=== PATIENT | female | born 1935 | race Caucasian/White ===

== ENCOUNTER → 2020-02-12 09:50 | Outpatient (REF) | payer MEDICARE, SELFPAY | LOC: HO.SL 09:50 | PROVIDERS: PCP Internal Medicine; Visit Provider Internal Medicine | DX: G47.33 Obstructive sleep apnea (adult) (pediatric) (principal) | CPT/HCPCS: 95806 ==

== ENCOUNTER 2020-03-10 11:03 | Outpatient (REF) | payer MEDICARE, SELFPAY ==
--- NOTE | 2020-03-10 11:05 | XR_ITS ---
EXAMINATION: XR KNEES, STANDING AP XR KNEE, RIGHT CLINICAL INFORMATION: M25.561 - Pain in right knee COMPARISON: Radiographs right knee 12/16/2019, standing AP knees and left knee 08/21/2019. TECHNIQUE: Screening AP view of both knees is performed along with a lateral view of the right knee with patient weightbearing. FINDINGS: The right knee has total arthroplasty. The hardware is intact. There is no fracture or dislocation or destructive process. There is mild thickening suprapatellar bursa consistent with a trace effusion. There is no osteolysis. No periostitis. The left knee shows narrowing lateral compartment with mild subchondral sclerosis and marginal osteophytes lateral femoral condyle and lateral tibial plateau. There is no erosive change or visible chondrocalcinosis. 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 XR/XR knee standing BI IMPRESSION: 1. Right: Total knee arthroplasty. Trace effusion. 2. Left: Narrowing lateral compartment. 3. 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
--- NOTE | 2020-03-10 11:05 | XR_ITS ---
EXAMINATION: XR KNEES, STANDING AP XR KNEE, RIGHT CLINICAL INFORMATION: M25.561 - Pain in right knee COMPARISON: Radiographs right knee 12/16/2019, standing AP knees and left knee 08/21/2019. TECHNIQUE: Screening AP view of both knees is performed along with a lateral view of the right knee with patient weightbearing. FINDINGS: The right knee has total arthroplasty. The hardware is intact. There is no fracture or dislocation or destructive process. There is mild thickening suprapatellar bursa consistent with a trace effusion. There is no osteolysis. No periostitis. The left knee shows narrowing lateral compartment with mild subchondral sclerosis and marginal osteophytes lateral femoral condyle and lateral tibial plateau. There is no erosive change or visible chondrocalcinosis. 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 XR/XR knee RT 2V IMPRESSION: 1. Right: Total knee arthroplasty. Trace effusion. 2. Left: Narrowing lateral compartment. 3. 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
== END 2020-03-10 11:04 | disposition home or self-care (01) ==
LOC: HO.HOSX 11:03
PROVIDERS: PCP Internal Medicine; Referring Provider Internal Medicine; Visit Provider Orthopaedic Surgery
DX: M25.561 Pain in right knee (principal); M25.562 Pain in left knee; Z96.651 Presence of right artificial knee joint
CPT/HCPCS: 73560; 73565; 99202

== ENCOUNTER → 2020-04-08 10:56 | Outpatient (BNVA) | payer MEDICARE, SELFPAY | PROVIDERS: PCP Internal Medicine; Visit Provider Anesthesiology | DX: M51.36 Other intervertebral disc degeneration, lumbar region (principal); M76.31 Iliotibial band syndrome, right leg | CPT/HCPCS: 20552; 99202 ==

== ENCOUNTER 2020-04-21 08:05 | Outpatient (REF) | payer MEDICARE, SELFPAY ==
[2020-04-21 09:04] LABS: MANUAL DIFF FLAG NO
[2020-04-21 09:10] LABS: Basophils Absolute Auto 0.1 X10*3/uL (0.0-0.2); Basophils Percent Auto 1.1 % (0-2); Eosinophils Absolute Auto 0.3 X10*3/uL (0.0-0.4); Hematocrit 29.1 % (37-47); Hemoglobin 9.7 g/dl (12.0-16.0); Imm Gran Abs Auto 0.03 X10*3/uL (0.00-0.03); Imm Gran Pct Auto 0.5 % (0.0-0.4); Lymphocytes Absolute Auto 1.7 X10*3/uL (1.2-4.9); Lymphocytes Percent Auto 25.3 % (20-40); Mean Corpuscular HGB Conc 33.3 g/dl (31.0-35.0); Mean Platelet Volume 10.2 fL (9.4-12.3); Monocytes Absolute Auto 0.8 X10*3/uL (0.1-1.2); Neutrophils Absolute Auto 3.7 X10*3/uL (2.0-8.3); Neutrophils Percent Auto 56.1 % (45-73); Platelet Count 259 X10*3/uL (160-400); Red Blood Count 3.03 X10*6/uL (4.20-5.50); Red Cell Distribution Width 13.2 % (11.0-16.0); White Blood Count 6.6 X10*3/uL (4.8-10.8)
[2020-04-21 09:38] LABS: Alanine Aminotransferase 23 U/L (0-31); Albumin Level 4.3 g/dL (3.5-5.0); Alkaline Phosphatase 88 U/L (39-117); Anion Gap 12 (12-20); Aspartate Amino Transferase 16 U/L (5-31); Bilirubin Total 0.5 mg/dL (0.0-1.0); Blood Urea Nitrogen 41 mg/dL (9-16); Calcium 9.1 mg/dL (8.4-10.2); Carbon Dioxide 27 mmol/L (22-29); Chloride 98 mmol/L (96-108); Cholesterol 144 mg/dL; Estimated Glomerular Filt Rate 42; Glucose Random 179 mg/dL (60-115); HDL Cholesterol 75 mg/dL; LDL Cholesterol Calculated 58 mg/dl; Potassium 5.1 mmol/l (3.3-5.1); Sodium 132 mmol/L (135-145); Total Protein 6.6 g/dL (6.5-8.0); Triglycerides 58 mg/dL
[2020-04-21 10:03] LABS: Free T4 (Free Thyroxine) 1.67 ng/dL (0.71-1.85); Thyroid Stimulating Hormone 1.02 uIU/mL (0.32-4.0); Vitamin D 25-OH Total 29.7 ng/mL (>30)
[2020-04-21 10:11] LABS: Vitamin B12 731 pg/mL (200-900)
[2020-04-21 11:01] LABS: Creatinine Urine 18.48 mg/dL; Microalbum/Creatinine Ratio Ur 687.2 ug/mg cr
== END 2020-04-21 08:06 | disposition home or self-care (01) ==
LOC: HO.LAB 08:05
PROVIDERS: PCP Internal Medicine; Visit Provider Internal Medicine
DX: E11.65 Type 2 diabetes mellitus with hyperglycemia (principal); E03.9 Hypothyroidism, unspecified; I10 Essential (primary) hypertension; E78.00 Pure hypercholesterolemia, unspecified; Z79.4 Long term (current) use of insulin
CPT/HCPCS: 36415; 80053; 80061; 82043; 82306; 82607; 82746; 84439; 84443; 85025

== ENCOUNTER 2020-04-28 11:00 | Outpatient (RCR) | payer MEDICARE, SELFPAY ==
--- NOTE | 2020-06-22 10:24 | MHC.PT.DC ---
[facility] [place] [facility] [employer] [facility] [address] João Beckett [address] [phone] F: [phone] F: [phone] F: [phone] F: [phone] Physical Therapy Discharge Report Diagnosis: right hip and thigh pain Date of Surgery: Na Date of Evaluation: 03/12/20 Date of Discharge: 06/22/20 Treatments to Date: 10 Cancellations to Date: 0 No Shows to Date: 0 Discharge Status: Achieved Goals Improved Function Independent with HEP Recommend MD Follow-up Discharge Summary: Pt was + for special tests indicating right hip dysfunction and/or labral injury. Pt had the most pain with hip internal rotation and flexion. She has a femur x - ray that shows hip joint narrowing, and ostephyte formation. I believe her symptoms of thigh pain are referred from impingement in the right hip. I have done manual therapy, stretches, lateral hip mobilizations and long axis distraction without any improvement. She has a HEP of mat exercises for hip/pelvic stability. I will be d/c her with recommendations to continue HEP as long as they are pain free. I also discussed at length changing the way she goes into bed to avoid hip IR. I also cued her on limiting right trunk rotation. Electronically signed by: Ирина Bella PT DPT Please sign and return to therapist. Thank you for your referral.
== END 2020-07-21 08:26 | disposition other institution (70) ==
LOC: HO.PT 11:00
PROVIDERS: PCP Internal Medicine; Visit Provider Orthopaedic Surgery
DX: M79.651 Pain in right thigh (principal)
CPT/HCPCS: 97033; 97110; 97112; 97140; 97162; 97530

== ENCOUNTER → 2020-05-05 12:49 | Outpatient (BNVA) | payer MEDICARE, SELFPAY | PROVIDERS: PCP Internal Medicine; Visit Provider Orthopaedic Surgery | DX: Z76.89 Persons encountering health services in other specified circumstances (principal) | CPT/HCPCS: 99212 ==

== ENCOUNTER → 2020-05-19 09:51 | Outpatient (BNVA) | payer MEDICARE, SELFPAY | PROVIDERS: PCP Internal Medicine; Visit Provider Orthopaedic Surgery | DX: Z13.89 Encounter for screening for other disorder (principal) | CPT/HCPCS: 99212 ==

== ENCOUNTER 2020-05-21 09:48 | Outpatient (REF) | payer MEDICARE, SELFPAY ==
--- NOTE | ~2020-05-21 | MR_ITS ---
EXAMINATION: MR LUMBAR SPINE WITHOUT CONTRAST CLINICAL INFORMATION: Right lower extremity radiculopathy and low back pain. Status post fall. COMPARISON: CT dated 12/08/2019. TECHNIQUE: MRI of the lumbar spine was obtained using routine sequences without contrast. FINDINGS: VERTEBRAL BODIES AND PARASPINAL STRUCTURES: There is a rightward curvature of the lumbar spine centered at the L2-L3 level. There is a chronic-appearing inferior endplate compression fracture deformity with a mild loss of vertebral body height at the L3 level. Mild edematous endplate changes evident at L3-L4. There is severe disc space narrowing with a mild retrosubluxation and endplate spurring at the T11-T12 level. Severe loss of disc height lateralized more so to the right side also evident at the L2-L3 level. Moderate degenerative disc disease at L3-L4. The paraspinal soft tissues are unremarkable. There is a 1 cm round lesion at the lower pole of the left kidney, which is hypointense on T2-weighted imaging and hyperintense on the T1-weighted acquisition, potentially representing a proteinaceous cyst. The imaged bony pelvis appears normal. CONUS MEDULLARIS AND CAUDA EQUINA: Normal, terminating at the level of L1-L2. No lower cord signal abnormality is seen. The cauda equina nerve roots are normal. SPINAL LEVELS: L1-L2: Posterior endplate spurring and shallow right paracentral disc protrusion. No central canal stenosis or foraminal narrowing. L2-L3: Severe disc space narrowing with endplate spurring and a mild disc bulge resulting in mild bilateral foraminal encroachment. No central canal stenosis. L3-L4: Moderate loss of disc height and mild anterior subluxation with a left paracentral to subarticular zone disc protrusion impressing upon the left L4 nerve root. Hypertrophic facet arthropathy and mild central canal stenosis. Right foraminal disc protrusion impinges upon the exiting right L3 nerve root with significant encroachment. Moderate left foraminal narrowing. L4-L5: Anterior subluxation and disc bulge with severe facet arthropathy encroaching upon the subarticular zones. Mild to moderate central canal stenosis. Moderate left foraminal narrowing. L5-S1: Mild disc bulge and facet arthropathy without central canal stenosis. Bulging disc mildly distorts the exiting left L5 nerve root with mild to moderate left foraminal encroachment. MR/MR lumbar spine wo con IMPRESSION: Multilevel lumbar spondylosis and mild leftward lumbar spinal curvature. Severe loss of disc height with a mild disc bulge and endplate ridging at the L2-L3 level. Moderate loss of disc height and mild anterior subluxation at L3-L4. Left paracentral to left subarticular zone disc protrusion impressing upon the left L4 nerve root. Mild central canal stenosis. Right foraminal disc protrusion impinges upon the right L3 nerve root. Moderate to severe foraminal narrowing, worse on the right side. Anterolisthesis and severe facet arthropathy at the L4-L5 level with mild to moderate central canal stenosis and moderate left foraminal narrowing. Indeterminate 1 cm round lesion at the lower pole of the left kidney, which may represent a proteinaceous or hemorrhagic renal cyst. Recommend further evaluation with follow-up sonography in order to exclude a solid lesion.
--- NOTE | ~2020-05-21 | MR_ITS ---
EXAMINATION: MR HIP WITHOUT CONTRAST, RIGHT CLINICAL INFORMATION: Pain in right hip. Patient reports 5 months of right leg pain, low back pain, status post fall, symptoms since. COMPARISON: XR pelvis and right hip 12/08/2019. MRI left hip 02/12/2006. TECHNIQUE: MRI of the right hip was obtained using routine sequences on a high-field strength magnet. FINDINGS: ACETABULAR LABRUM: There is ill-defined degeneration and probable tearing of the lateral acetabular labrum. There is mild intrasubstance degenerative signal in the anterosuperior labrum. ARTICULAR CARTILAGE/BONE: There is patchy cartilage loss in the right hip joint, ranging from mild to high-grade. This is moderate to high-grade in the superolateral weightbearing portion. There are small marginal osteophytes. There are tiny subchondral degenerative cysts in the superior acetabulum. MUSCLES/TENDONS: There is mild right distal gluteus medius and minimus insertional tendinosis. JOINT FLUID/BURSA: Within normal limits. INTRAPELVIC STRUCTURES: Unremarkable. MR/MR hip RT wo con IMPRESSION: 1. 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 Mild degeneration of the anterosuperior labrum. 2. 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 3. Mild right distal gluteus medius and minimus insertional tendinosis.
== END 2020-05-21 09:49 | disposition home or self-care (01) ==
LOC: HO.MRI 09:48
PROVIDERS: Visit Provider Internal Medicine
DX: M25.551 Pain in right hip (principal); M54.10 Radiculopathy, site unspecified
CPT/HCPCS: 72148; 73721

== ENCOUNTER 2020-05-31 09:06 | Outpatient (REF) | payer MEDICARE, SELFPAY ==
--- NOTE | ~2020-05-31 | US_ITS ---
EXAMINATION: US RETROPERITONEAL LIMITED (RENAL ONLY) CLINICAL INFORMATION: Cyst of kidney. COMPARISON: CT abdomen pelvis 08/17/2009. X-ray KUB 06/29/2009 TECHNIQUE: Real-time imaging of the kidneys. FINDINGS: RIGHT KIDNEY: 6.8 x 3.9 x 3.6 cm (SAG x AP x TRV). The right kidney is smaller than the left post partial nephrectomy. The kidney is normal in contour and echogenicity. Renal cortical thickness is normal. No calculi or focal parenchymal lesions. No hydronephrosis. LEFT KIDNEY: 10.1 x 4.5 x 4.9 cm (SAG x AP x TRV). The kidney is normal in size, contour, and echogenicity. Renal cortical thickness is normal. There are 2 cysts measuring 1 cm in the upper pole and 7 x 6 x 9 mm in the lower pole. No renal calculi, mass or hydronephrosis. US/US renal BI IMPRESSION: Small right kidney post partial nephrectomy. 2 small simple left renal cysts.
== END 2020-05-31 09:07 | disposition home or self-care (01) ==
LOC: HO.US 09:06
PROVIDERS: PCP Internal Medicine; Visit Provider Internal Medicine
DX: N28.1 Cyst of kidney, acquired (principal)
CPT/HCPCS: 76775

== ENCOUNTER 2020-06-01 00:46 | Inpatient (IN) | payer MEDICARE, SELFPAY ==
[2020-06-01] VITALS (14 sets, daily range): BP systolic 125–224; BP diastolic 45–82; PULSE 67–85; RESP 16–26; TEMP 36.3–38.2; O2SAT 82–100; BMI 20.5
--- NOTE | 2020-06-01 | ECG_ITS ---
Test Reason : SOB Blood Pressure : / mmHG Vent. Rate : 077 BPM Atrial Rate : 357 BPM P-R Int : 000 ms QRS Dur : 096 ms QT Int : 372 ms P-R-T Axes : 000 -40 062 degrees QTc Int : 420 ms Poor data quality Possible Normal sinus rhythm Left axis deviation Left ventricular hypertrophy with repolarization abnormality Abnormal ECG When compared with ECG of 15-DEC-2019 14:57, No significant changes seen Referred By: Jaja Mckenna Electronically Signed By:MATTEO CARNEY MD
--- NOTE | ~2020-06-01 | NM_ITS ---
EXAMINATION: NM LUNG IMAGE PERFUSION CLINICAL INFORMATION: Hypoxia, rule out PE COMPARISON: Chest x-ray dated 06/01/2020 TECHNIQUE: 4 mCi technetium MAA. Imaging in various obliquities over the lung flores FINDINGS: Mildly heterogeneous perfusion here. No segmental defect is felt to be present. Some overall decreased perfusion to the left lower lobe and some minimal defect inferior right lobe NM/NM pul perfusion IMPRESSION: Mild heterogeneous perfusion but no convincing evidence of a segmental defect. Findings suggest low probability for pulmonary embolism
--- NOTE | ~2020-06-01 | XR_ITS ---
EXAMINATION: XR CHEST CLINICAL INFORMATION: Shortness of breath COMPARISON: 12/15/2019 TECHNIQUE: Frontal view of the chest was obtained. FINDINGS: Cardiac leads overlie the chest. Increased interstitial markings with bronchial wall thickening. Small pleural effusions. No pneumothorax. The cardiomediastinal silhouette is normal in size with a calcified aorta. Central vascular prominence. XR/XR chest 1V IMPRESSION: Small pleural effusions. Central vascular prominence with interstitial markings favoring edema.
--- NOTE | 2020-06-01 01:07 | ED_ITS ---
HPI - General Adult General Chief complaint: Dyspnea Stated complaint: sob ams Time Seen by Provider: 06/01/20 01:03 Source: patient and EMS Mode of arrival: EMS Limitations: no limitations History of Present Illness HPI narrative: Patient comes emergency room complaining of shortness of breath. Patient states earlier this afternoon she had bilateral chest pressure, lasted for a few minutes, then started feeling short of breath. Per EMS, the daughter stated the the patient has been confused, altered for a few days. When EMS arrived to the patient's house, the patient was saturating at 82% on room air. Patient was placed on 15 L on a non-rebreather, oxygen saturation improved to 100%. Patient states that at this time she has no chest pain, states she is feeling better, complaining of nausea, no epigastric pain. Related Data Home Medications Medication Instructions Recorded Confirmed amiodarone 1 tab PO DAILY 06/01/20 06/01/20 hydralazine 1 tab PO BID 06/01/20 06/01/20 insulin glargine U-300 conc 13 unit SUBCUT QAM 06/01/20 06/01/20 [Toujeo SoloStar U-300 Insulin] insulin lispro [Humalog KwikPen 6 unit SUBCUT TID 06/01/20 06/01/20 Insulin] metoprolol succinate 1 tab PO DAILY 06/01/20 06/01/20 omeprazole 1 cap PO BID 06/01/20 06/01/20 pen needle, diabetic [BD Eveline 2nd 06/01/20 06/01/20 Gen Pen Needle] rivaroxaban [Xarelto] 1 tab PO DAILY 06/01/20 06/01/20 simvastatin 1 tab PO BEDTIME 06/01/20 06/01/20 spironolactone 1 tab PO DAILY 06/01/20 06/01/20 tramadol 1 tab PO DAILY PRN 06/01/20 06/01/20 travoprost drp OPHTHALMIC (EYE) 06/01/20 Previous Rx's Medication Instructions Recorded AUTO CPAP 6-16 cm H2O humidified #1 ea 04/14/20 air Allergies Allergy/AdvReac Type Severity Reaction Status Date / Time codeine Allergy Intermediate TACHYCARDIA Verified 05/19/20 10:12 nitrofurantoin [Macrobid] Allergy Unknown confusion Verified 05/19/20 10:12 pravastatin Allergy Unknown Unknown Verified 05/19/20 10:12 rosuvastatin [Crestor] Allergy Unknown Unknown Verified 05/19/20 10:12 Sulfa (Sulfonamide Allergy Unknown unknown Verified 05/19/20 10:12 Antibiotics) sulfamethoxazole Allergy Unknown Unknown Verified 05/19/20 10:12 [From Bactrim] trimethoprim [From Bactrim] Allergy Unknown Unknown Verified 05/19/20 10:12 amlodipine AdvReac Intermediate leg Verified 05/19/20 10:12 swelling Review of Systems Review of Systems: Constitutional : No Weight loss, No Fever, No Chills, No Night Sweats, No Fatigue, No Malaise ENT/Mouth : No Hearing loss, No Ear Pain, No Nasal Congestion, No Sinus Pain, No Hoarseness, No sore throat, No Rhinorrhea, No Swallowing Difficulty Eyes: No Eye Pain, No Swelling, No Redness, No Foreign Body, No Discharge, No Vision Changes Cardiovascular : 1 episode of chest pressure earlier today which self-resolved, complaining of dyspnea, no lower extremity edema Respiratory : No Cough, No Sputum, No Wheezing, No Smoke Exposure Gastrointestinal : Complaining of Nausea, No Vomiting, No Diarrhea, No Constipation, No abdominal Pain, No Hematochezia, No Melena Genitourinary : no irregular bleeding, No Dysuria, No Urinary Frequency, No Hematuria, No Urinary Incontinence, No Urgency, No Flank Pain, No Urinary Flow Changes, No Hesitancy Musculoskeletal : No joint pain, No Myalgias, No Joint Swelling Skin : No Skin Lesions, No rash Neuro : No Weakness, No Numbness, No Paresthesias, No Loss of Consciousness, No Dizziness, No Headache Psych : No Anxiety/Panic, No Depression, No SI/HI/AH/VH, No Social Issues, Heme/Lymph: No Bruising, No Bleeding,No Lymphadenopathy Endocrine : No Polyuria, No Polydipsia, No Temperature Intolerance [facility] Past Medical History Medical History Atrial fibrillation 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 Degenerative disc disease, lumbar Disc degeneration, lumbar Hypertension Hypothyroid Iliotibial band syndrome of right side Obstructive sleep apnea Osteopenia Spinal stenosis of lumbar region Type 2 diabetes mellitus with hyperglycemia Surgical History History of appendectomy History of cataract surgery History of section History of cholecystectomy History of eye surgery History of hip replacement History of knee replacement History of removal of cyst Family History Family History Father CVD (cardiovascular disease) Mother CVD (cardiovascular disease) Stroke Social History Social History Alcohol intake: never Smoking Status: Never smoker Advance Directives: No Advance Directives Information Provided: No Current occupational status: retired Physical Exam Vital Signs: Vital Signs: Last Vital Signs Temp 99.0 F 06/01/20 00:58 Pulse 69 06/01/20 02:30 Resp 24 H 06/01/20 02:30 BP 164/49 H 06/01/20 02:30 Pulse Ox 100 06/01/20 02:30 Body Mass Index 20.5 Appearance: Alert. Oriented X3. Moderate acute distress. Eyes: Pupils equal, round and reactive to light. ENT: Pharynx normal. Neck: Normal inspection. Neck supple. No lymph nodes noted. No crepitus CVS: Normal heart rate and rhythm. Pulses normal. Normal S1 and S2 Respiratory: Mild respiratory distress. Mild bilateral wheezing, speaking in full sentences , known 6 L nasal cannula, saturating 100% Abdomen: Soft and nontender. No rigidity. No distention. good BS x4 Skin: Skin warm and dry. Normal skin color. Normal skin turgor. Extremities: No lower extremity edema. No Rash Neuro: Oriented X 3. No motor deficit. No sensory deficit. Moving all extermities. No slurred speech. Course Course Course Narrative: Patient's shortness of breath likely secondary to high blood pressure causing pulmonary edema. Patient's BNP is twice her baseline. Chest x-ray does show pulmonary edema as well. Patient was given Lasix. Patient's white blood cell count is 15, likely secondary to reactive leukocytosis. Patient's lactic acid 0.9. Patient has no fever. Sepsis is not suspected. Patient's troponin 55.7, no EKG changes. Likely secondary to demand ischemia. I discussed the patient with Dr. Ortega, patient is being admitted. Medical Decision Making Lab Data Result diagrams: 06/01/20 01:16 06/01/20 01:16 Labs: Lab Results 06/01/20 06/01/20 06/01/20 Range/Units 01:04 01:16 01:16 WBC 15.0 H (4.8-10.8) X10*3/uL RBC 3.25 L (4.20-5.50) X10*6/uL Hgb 10.0 L (12.0-16.0) g/dl Hct 29.8 L (37-47) % MCV 91.7 (80-98) fL MCH 30.8 (27.0-33.0) pg MCHC 33.6 (31.0-35.0) g/dl RDW 13.6 (11.0-16.0) % Plt Count 264 (160-400) X10*3/uL MPV 10.2 (9.4-12.3) fL Immature Gran % (Auto) 0.8 H (0.0-0.4) % Neut % (Auto) 75.9 H (45-73) % Lymph % (Auto) 8.5 L (20-40) % Jerome % (Auto) 14.1 H (2-11) % Eos % (Auto) 0.4 (0-4) % Baso % (Auto) 0.3 (0-2) % Lymph # (Auto) 1.3 (1.2-4.9) X10*3/uL Jerome # (Auto) 2.1 H (0.1-1.2) X10*3/uL Eos # (Auto) 0.1 (0.0-0.4) X10*3/uL Baso # (Auto) 0.1 (0.0-0.2) X10*3/uL Abs Immat Gran (auto) 0.12 H (0.00-0.03) X10*3/uL Absolute Neuts (auto) 11.4 H (2.0-8.3) X10*3/uL Absolute Nucleated RBC 0.000 (0.0-0.012) X10*3/uL Nucleated RBC % (auto) 0.0 (0.0-0.2) /100WBC Smear Tech's Comments VERIFIED Sodium 126 L (135-145) mmol/L Potassium 5.2 H (3.3-5.1) mmol/L Chloride 93 L (96-108) mmol/L Carbon Dioxide 18 L (22-29) mmol/L Anion Gap 20 (12-20) BUN 41 H (9-16) mg/dL Creatinine 1.31 (0.5-1.4) mg/dL Estim Creat Clear Calc 23.3 Estimated GFR 39 Random Glucose 334 H D (60-115) mg/dL Lactic Acid (0.5-2.0) mmol/L Calcium 8.3 L D (8.4-10.2) mg/dL Total Bilirubin 0.4 (0.0-1.0) mg/dL Direct Bilirubin 0.2 (0.0-0.5) mg/dL AST 39 H D (5-31) U/L ALT 37 H (0-31) U/L Alkaline Phosphatase 112 D (39-117) U/L Troponin I High Sens (<3.5-17.0) ng/L B-Natriuretic Peptide (<100) pg/mL Total Protein 6.7 (6.5-8.0) g/dL Albumin 3.9 (3.5-5.0) g/dL Urine Color Urine Appearance Urine pH (5.0-8.0) Ur Specific [place] (1.005-1.025) Urine Protein (NEG-TRACE) MG/DL Urine Glucose (UA) (NEG) MG/DL Urine Ketones (NEG) MG/DL Urine Blood (NEG) Urine Nitrite (NEG) Ur Leukocyte Esterase (NEG) Urine RBC (0) /HPF Urine WBC (0-4) /HPF Urine WBC Clumps Ur Squamous Epith Cells /LPF Urine Bacteria /LPF Urine Mucus /LPF Coronavirus (PCR) NEGATIVE (Negative) Influenza Type A (PCR) NEGATIVE (Negative) Influenza Type B (PCR) NEGATIVE (Negative) RSV RNA Qual (PCR) NEGATIVE (Negative) 06/01/20 06/01/20 06/01/20 Range/Units 01:16 01:16 01:29 WBC (4.8-10.8) X10*3/uL RBC (4.20-5.50) X10*6/uL Hgb (12.0-16.0) g/dl Hct (37-47) % MCV (80-98) fL MCH (27.0-33.0) pg MCHC (31.0-35.0) g/dl RDW (11.0-16.0) % Plt Count (160-400) X10*3/uL MPV (9.4-12.3) fL Immature Gran % (Auto) (0.0-0.4) % Neut % (Auto) (45-73) % Lymph % (Auto) (20-40) % Jerome % (Auto) (2-11) % Eos % (Auto) (0-4) % Baso % (Auto) (0-2) % Lymph # (Auto) (1.2-4.9) X10*3/uL Jerome # (Auto) (0.1-1.2) X10*3/uL Eos # (Auto) (0.0-0.4) X10*3/uL Baso # (Auto) (0.0-0.2) X10*3/uL Abs Immat Gran (auto) (0.00-0.03) X10*3/uL Absolute Neuts (auto) (2.0-8.3) X10*3/uL Absolute Nucleated RBC (0.0-0.012) X10*3/uL Nucleated RBC % (auto) (0.0-0.2) /100WBC Smear Tech's Comments Sodium (135-145) mmol/L Potassium (3.3-5.1) mmol/L Chloride (96-108) mmol/L Carbon Dioxide (22-29) mmol/L Anion Gap (12-20) BUN (9-16) mg/dL Creatinine (0.5-1.4) mg/dL Estim Creat Clear Calc Estimated GFR Random Glucose (60-115) mg/dL Lactic Acid 0.9 (0.5-2.0) mmol/L Calcium (8.4-10.2) mg/dL Total Bilirubin (0.0-1.0) mg/dL Direct Bilirubin (0.0-0.5) mg/dL AST (5-31) U/L ALT (0-31) U/L Alkaline Phosphatase (39-117) U/L Troponin I High Sens 55.7 H (<3.5-17.0) ng/L B-Natriuretic Peptide 413 H (<100) pg/mL Total Protein (6.5-8.0) g/dL Albumin (3.5-5.0) g/dL Urine Color YELLOW Urine Appearance HAZY Urine pH 5.5 (5.0-8.0) Ur Specific [place] 1.025 (1.005-1.025) Urine Protein 2+ H (NEG-TRACE) MG/DL Urine Glucose (UA) >=1000 H (NEG) MG/DL Urine Ketones NEG (NEG) MG/DL Urine Blood TRACE (NEG) Urine Nitrite NEG (NEG) Ur Leukocyte Esterase TRACE H (NEG) Urine RBC 0-2 (0) /HPF Urine WBC 15-29 H (0-4) /HPF Urine WBC Clumps NOTED Ur Squamous Epith Cells TRACE /LPF Urine Bacteria 1+ /LPF Urine Mucus TRACE /LPF Coronavirus (PCR) (Negative) Influenza Type A (PCR) (Negative) Influenza Type B (PCR) (Negative) RSV RNA Qual (PCR) (Negative) Imaging Data Chest x-ray: Radiologist's impression: Cardiac leads overlie the chest. Increased interstitial markings with bronchial wall thickening. Small pleural effusions. No pneumothorax. The cardiomediastinal silhouette is normal in size with a calcified aorta. Central vascular prominence. XR/XR chest 1V IMPRESSION: Small pleural effusions. Central vascular prominence with interstitial markings favoring edema. ECG Data Attestation: I personally reviewed and interpreted this ECG as follows: (Heart rate 77, QTC 420, accelerated junctional rhythm. No ST segment depressions or elevations) Discharge Plan Discharge Clinical Impression: CHF (congestive heart failure), Acute hyponatremia, Acute alteration in mental status, Acute hyperglycemia, Elevated troponin Patient Disposition: Admitted As Inpatient
[2020-06-01] MEDS: ondansetron HCL 4 MG/2 ML VIAL IVPUSH (01:10)
--- NOTE | 2020-06-01 01:17 | PC.NURSE ---
XRay at bedside.
[2020-06-01 01:28] LABS: Basophils Absolute Auto 0.1 X10*3/uL (0.0-0.2); Basophils Percent Auto 0.3 % (0-2); Eosinophils Absolute Auto 0.1 X10*3/uL (0.0-0.4); Eosinophils Percent Auto 0.4 % (0-4); Hematocrit 29.8 % (37-47); Imm Gran Abs Auto 0.12 X10*3/uL (0.00-0.03); Imm Gran Pct Auto 0.8 % (0.0-0.4); Lymphocytes Absolute Auto 1.3 X10*3/uL (1.2-4.9); Lymphocytes Percent Auto 8.5 % (20-40); MANUAL DIFF FLAG SCAN; Mean Corpuscular HGB Conc 33.6 g/dl (31.0-35.0); Mean Corpuscular Hemoglobin 30.8 pg (27.0-33.0); Mean Corpuscular Volume 91.7 fL (80-98); Mean Platelet Volume 10.2 fL (9.4-12.3); Monocytes Absolute Auto 2.1 X10*3/uL (0.1-1.2); Monocytes Percent Auto 14.1 % (2-11); Neutrophils Absolute Auto 11.4 X10*3/uL (2.0-8.3); Neutrophils Percent Auto 75.9 % (45-73); Platelet Count 264 X10*3/uL (160-400); Red Blood Count 3.25 X10*6/uL (4.20-5.50); Red Cell Distribution Width 13.6 % (11.0-16.0); SCAN SMEAR FLAG 1
[2020-06-01 01:36] LABS: Glucose Urine UA >=1000 MG/DL (NEG); Leukocyte Esterase Urine TRACE (NEG); Nitrite Urine NEG (NEG); PH 5.5 (5.0-8.0); Specific Gravity - Urine 1.025 (1.005-1.025); UACC Culture Trigger YES; Urine Blood TRACE (NEG); Urine Ketones NEG (NEG); Urine Protein 2+ MG/DL (NEG-TRACE)
[2020-06-01 01:47] LABS: Lactic Acid 0.9 mmol/L (0.5-2.0)
[2020-06-01 01:49] LABS: Influenza A PCR NEGATIVE (Negative); Influenza B PCR NEGATIVE (Negative); Resp Syncy Virus RNA Qual PCR NEGATIVE (Negative); SARS COV2 PCR INHOUSE NEGATIVE (Negative)
[2020-06-01 01:51] LABS: SLIDE REVIEW VERIFIED
[2020-06-01 01:57] LABS: Alanine Aminotransferase 37 U/L (0-31); Albumin Level 3.9 g/dL (3.5-5.0); Alkaline Phosphatase 112 U/L (39-117); Anion Gap 20 (12-20); Aspartate Amino Transferase 39 U/L (5-31); B Type Natriuretic Peptide 413 pg/mL (<100); Bilirubin Direct 0.2 mg/dL (0.0-0.5); Bilirubin Total 0.4 mg/dL (0.0-1.0); Blood Urea Nitrogen 41 mg/dL (9-16); Calcium 8.3 mg/dL (8.4-10.2); Carbon Dioxide 18 mmol/L (22-29); Chloride 93 mmol/L (96-108); Creatinine Clr Calc Pharmacy 23.3; Estimated Glomerular Filt Rate 39; Glucose Random 334 mg/dL (60-115); Potassium 5.2 mmol/L (3.3-5.1); Sodium 126 mmol/L (135-145); Total Protein 6.7 g/dL (6.5-8.0); Troponin-I High Sensitivity 55.7 ng/L (<3.5-17.0)
[2020-06-01 02:00] LABS: Appearance Urine HAZY; Color Urine YELLOW; RBC Urine 0-2 /HPF (0); Squamous Epithelial Cell Urine TRACE /LPF
[2020-06-01 02:01] LABS: Bacteria Urine 1+ /LPF; Mucus Urine TRACE /LPF; WBC Clumps Urine NOTED
--- NOTE | 2020-06-01 02:30 | PC.NURSE ---
MD at bedside discussing plan for IV Lasix and admission. Pt medicated with Lasix per JUN. VSS at this time. Continue to monitor.
[2020-06-01] MEDS: Furosemide 40 MG/4 ML VIAL IVPUSH (02:31)
--- NOTE | 2020-06-01 03:27 | PC.NURSE ---
RT and MD at bedside.
--- NOTE | 2020-06-01 03:35 | PC.NURSE ---
This RN updating daughter in waiting room, Janina. Daughter reports confusion x 1 day, ?UTI, reports a history of UTIs. Daughter explains that she plays with pts medications specifically her antihypertensives and Lasix. Daughter reports many low readings on home BP machine which is why she has been withholding antihypertensives and Lasix. Daughter denies consulting with PCP regarding pts medications. [phone] Janina, son Nelson [phone] to be called with updates. [place] [facility] [place] found sitting upright in bed, c/o SOB. Pt noted to be diaphoretic with a rectal temp of 100.4. VSS at that time, noted above. MD at bedside, plan for Bipap. RT at bedside, pt resting comfortably on Bipap @ this time, @ 10/5, 30%, satting @ 99%. Call wise within reach, continue to monitor.
[2020-06-01] MEDS: Insulin Regular, Human 100 UNIT/ML 3 ML VIAL IVPUSH (04:25)
--- NOTE | 2020-06-01 04:27 | PC.NURSE ---
Pt medicated with Insulin. Pt resting in bed on Bipap at this time, reports relief of SOB while on bipap, O2 sat remains 98% while @ 10/5, 30%. Call wise within reach, continue to monitor.
--- NOTE | 2020-06-01 04:33 | PC.NURSE ---
at bedside, removing Bipap. Pt placed back on a NC @ 4 lpm, satting @ 98%. VSS @ this time. Continue to monitor.
--- NOTE | 2020-06-01 05:11 | PC.NURSE ---
Hospitalist at bedside, plan for smith cath.
--- NOTE | 2020-06-01 05:51 | PC.NURSE ---
This RN inserted 16 Fr smith catheter with 10cc balloon, maintaining sterile technique with JARVIS Corley assisting. Pt tolerated well. Bag to dependent drainage, tubing secured to L medial thigh. Clear yellow urine draining.
--- NOTE | 2020-06-01 05:54 | P.HPHOSP_ITS ---
History of Present Illness Date of Service: 06/01/20 Chief Complaint: Shortness of breath This is an 84-year-old female with past medical history of hypertension, diabetes, AFib on Eliquis, diastolic heart failure presents to the hospital with complaints of shortness of breath. Patient reports that her symptoms started 2 days ago. Short of breath on exertion, not associated with any cough, or sputum production. No fever or chills. He denies orthopnea or PND, no lower extremity edema. Has no chest pain, no abdominal pain, nausea or vomiting, no diarrhea constipation. She denies any urinary symptoms and no lower extremity edema. She reports that she just has difficulty taking a deep breath and cannot get comfortable. Patient's daughter also reported to the ED physician that patient has been slightly confused for the past few days and is not completely sharp and herself as she usually is. She Per EMS patient was found to have an O2 sat of 82% on room air. Was placed on non-rebreather and came up to 100%. Currently on 6 L satting above 95%. Vitals otherwise are significant for tachypnea willow with respiratory rate of 26, blood pressure of 224/81, patient received Lasix 60 mg with improvement in her tachypnea as well as blood pressure to 160/49. Labs are significant for WBC count of 15, hemoglobin of 10 which is her baseline, sodium of 126 (chronically low in the low 30s, 132 from 04/21/20), BUN of 41, creatinine of 1.31 which is around her baseline, AST of 39, ALT of 37, BNP of 413, that is positive for leukocyte Estrace and WBC count. COVID-19 negative, Chest x-ray shows small pleural effusion. Central vascular prominence with interstitial marking favoring edema. 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 Degenerative disc disease, lumbar Disc degeneration, lumbar Hypertension Hypothyroid Iliotibial band syndrome of right side Obstructive sleep apnea Osteopenia Spinal stenosis of lumbar region Type 2 diabetes mellitus with hyperglycemia Family History Father CVD (cardiovascular disease) Mother CVD (cardiovascular disease) Stroke Surgical History History of appendectomy History of cataract surgery History of section History of cholecystectomy History of eye surgery History of hip replacement History of knee replacement History of removal of cyst Social History Alcohol intake: never Smoking Status: Never smoker Advance Directives: No Advance Directives Information Provided: No Current occupational status: retired Meds Allergies Allergy/AdvReac Type Severity Reaction Status Date / Time codeine Allergy Intermediate TACHYCARDIA Verified 05/19/20 10:12 nitrofurantoin [Macrobid] Allergy Unknown confusion Verified 05/19/20 10:12 pravastatin Allergy Unknown Unknown Verified 05/19/20 10:12 rosuvastatin [Crestor] Allergy Unknown Unknown Verified 05/19/20 10:12 Sulfa (Sulfonamide Allergy Unknown unknown Verified 05/19/20 10:12 Antibiotics) sulfamethoxazole Allergy Unknown Unknown Verified 05/19/20 10:12 [From Bactrim] trimethoprim [From Bactrim] Allergy Unknown Unknown Verified 05/19/20 10:12 amlodipine AdvReac Intermediate leg Verified 05/19/20 10:12 swelling Home Medications Medication Instructions Recorded Confirmed Last Taken Type amiodarone 1 tab PO DAILY 06/01/20 06/01/20 Unknown History hydralazine 1 tab PO BID 06/01/20 06/01/20 Unknown History insulin glargine U-300 conc 13 unit SUBCUT QAM 06/01/20 06/01/20 Unknown History [Togaurav Meeks U-300 Insulin] insulin lispro [Humalog KwikPen 6 unit SUBCUT TID 06/01/20 06/01/20 Unknown History Insulin] metoprolol succinate 1 tab PO DAILY 06/01/20 06/01/20 Unknown History omeprazole 1 cap PO BID 06/01/20 06/01/20 Unknown History pen needle, diabetic [BD Eveline 2nd 06/01/20 06/01/20 Unknown History Gen Pen Needle] rivaroxaban [Xarelto] 1 tab PO DAILY 06/01/20 06/01/20 Unknown History simvastatin 1 tab PO BEDTIME 06/01/20 06/01/20 Unknown History spironolactone 1 tab PO DAILY 06/01/20 06/01/20 Unknown History tramadol 1 tab PO DAILY PRN 06/01/20 06/01/20 Unknown History travoprost drp OPHTHALMIC (EYE) 06/01/20 Unknown History Physical Exam Vital Signs and Narrative: Vital Signs: Last Vital Signs Temp 100.2 F 06/01/20 05:50 Pulse 79 06/01/20 05:50 Resp 22 H 06/01/20 05:50 BP 177/66 H 06/01/20 05:50 Pulse Ox 100 06/01/20 05:50 Body Mass Index 20.5 Const: Other: slightly confused about her hx and needed more prompting and clarification to understand most of my questions General: cooperative and no acute distress Orientation/consciousness: patient oriented x3 Eyes: General: appearance normal, both eyes and all related structures Pupils: Equal, round and reactive pupils present Resp: Effort & Inspection: normal respiratory effort and able to speak in complete sentences Auscultation: rhonchi Cardio: Rate: regular rate Rhythm: regular rhythm GI: Palpation (GI): Soft to palpation Auscultation: normal bowel sounds Skin: General skin exam: no rashes or lesions noted Neuro: General: patient oriented x3 Cranial nerves: Yes Equal, round and reactive pupils present Cognition (Neuro): normal cognition Extrem: General: Yes normal to inspection and Yes no pedal edema Results Labs CBC and Chem 7: 06/01/20 01:16 06/01/20 01:16 Labs: Laboratory Results - last 24 hr 06/01/20 06/01/20 06/01/20 01:04 01:16 01:16 MCV 91.7 MCH 30.8 MCHC 33.6 RDW 13.6 Plt Count 264 MPV 10.2 Immature Gran % (Auto) 0.8 H Neut % (Auto) 75.9 H Lymph % (Auto) 8.5 L [place] % (Auto) 14.1 H Eos % (Auto) 0.4 Baso % (Auto) 0.3 Lymph # (Auto) 1.3 [place] # (Auto) 2.1 H Eos # (Auto) 0.1 Baso # (Auto) 0.1 Abs Immat Gran (auto) 0.12 H Absolute Neuts (auto) 11.4 H Absolute Nucleated RBC 0.000 Nucleated RBC % (auto) 0.0 Smear Tech's Comments VERIFIED Anion Gap 20 Estim Creat Clear Calc 23.3 Estimated GFR 39 Random Glucose 334 H D Lactic Acid Calcium 8.3 L D Total Bilirubin 0.4 Direct Bilirubin 0.2 AST 39 H D ALT 37 H Alkaline Phosphatase 112 D Troponin I High Sens B-Natriuretic Peptide Total Protein 6.7 Albumin 3.9 Urine Color Urine Appearance Urine pH Ur Specific [place] Urine Protein Urine Glucose (UA) Urine Ketones Urine Blood Urine Nitrite Ur Leukocyte Esterase Urine RBC Urine WBC Urine WBC Clumps Ur Squamous Epith Cells Urine Bacteria Urine Mucus Coronavirus (PCR) NEGATIVE Influenza Type A (PCR) NEGATIVE Influenza Type B (PCR) NEGATIVE RSV RNA Qual (PCR) NEGATIVE 06/01/20 06/01/20 06/01/20 01:16 01:16 01:29 MCV MCH MCHC RDW Plt Count MPV Immature Gran % (Auto) Neut % (Auto) Lymph % (Auto) [place] % (Auto) Eos % (Auto) Baso % (Auto) Lymph # (Auto) [place] # (Auto) Eos # (Auto) Baso # (Auto) Abs Immat Gran (auto) Absolute Neuts (auto) Absolute Nucleated RBC Nucleated RBC % (auto) Smear Tech's Comments Anion Gap Estim Creat Clear Calc Estimated GFR Random Glucose Lactic Acid 0.9 Calcium Total Bilirubin Direct Bilirubin AST ALT Alkaline Phosphatase Troponin I High Sens 55.7 H B-Natriuretic Peptide 413 H Total Protein Albumin Urine Color YELLOW Urine Appearance HAZY Urine pH 5.5 Ur Specific [place] 1.025 Urine Protein 2+ H Urine Glucose (UA) >=1000 H Urine Ketones NEG Urine Blood TRACE Urine Nitrite NEG Ur Leukocyte Esterase TRACE H Urine RBC 0-2 Urine WBC 15-29 H Urine WBC Clumps NOTED Ur Squamous Epith Cells TRACE Urine Bacteria 1+ Urine Mucus TRACE Coronavirus (PCR) Influenza Type A (PCR) Influenza Type B (PCR) RSV RNA Qual (PCR) Imaging Radiologist's Impressions: Impressions Chest X-Ray 06/01/20 01:05 IMPRESSION: Small pleural effusions. Central vascular prominence with interstitial markings favoring edema. Assessment and Plan (1) CHF exacerbation: Status: Acute (2) Acute hyponatremia: Status: Acute (3) Acute alteration in mental status: Status: Acute (4) UTI (urinary tract infection): Status: Acute (5) Elevated troponin: Status: Acute (6) Atrial fibrillation: Qualifiers: Atrial fibrillation type: paroxysmal Qualified Code(s): I48.0 - Paroxysmal atrial fibrillation Problem details: Cardioversion December 2015, echo May 2019 EF 60-65% grade 2 diastolic dysfunction moderate pulmonary hypertension Status: Acute (7) Hypertension: Qualifiers: Hypertension type: essential hypertension Qualified Code(s): I10 - Essential (primary) hypertension Status: Acute (8) Type 2 diabetes mellitus with hyperglycemia: Qualifiers: 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 Qualified Code(s): E11.65 - Type 2 diabetes mellitus with hyperglycemia; Z79.4 - exterminator helper (current) use of insulin Problem details: With retinopathy Status: Acute This is an 84-year-old female with past medical history of hypertension, diabetes, says diastolic heart failure, who presents to the hospital with complaints of shortness of breath # dyspnea - secondary to CHF exacerbation versus PE less likely versus pneumonia less likely - chest x-rays demonstrating pulmonary congestion, has elevated BNP, no evidence of pneumonia on chest x-ray, COVID-19 PCR negative - echo cardiogram done from May 2019 shows ejection fraction of 60-65% with grade 2 diastolic dysfunction - possibly secondary to flash pulmonary edema secondary to elevated blood pressure Plan: - will start her on 40 mg of Lasix daily - strict I&O, daily weight, low-sodium diet - will control her blood pressure - echocardiogram - telemetry # acute hyponatremia - possibly secondary to hypervolemic hyponatremia in the setting of heart failure versus low p.o. intake - will obtain urine creatinine, urine sodium, urine osmolality and serum osmolality early - consult Nephrology - [facility] Q 12 - will hold off on starting IV fluids as patient has volume overload in the setting of CHF exacerbation # acute alteration in mentation - secondary to UTI - has positive UA - leukocytosis - will start on ceftriaxone - follow culture # elevated troponin - most likely secondary to acute CHF as well as hypertension - denies any chest pain - no EKG changes - will obtain a 2nd troponin, and monitor for chest pain # hypertensive crisis - patient's blood pressure controlled after 1 dose of 60 mg IV Lasix - resume home p.o. medications # atrial fib - rate control - continue metoprolol, as well as Eliquis # diabetes - continue home insulin - will add low-dose sliding scale - diabetic diet DVT prophylaxis: Eliquis
[2020-06-01] MEDS: cefTRIAXone sodium 1 GM in 0.9 % Sodium Chloride 50 ML IV (06:42)
[2020-06-01 06:44] LABS: Osmolality, Serum 286 mosm/kg (281-305)
--- NOTE | 2020-06-01 06:46 | PC.NURSE ---
Repeat Troponin obtained late due to inadequate staffing within isolation unit and zero techs in ED. Labs obtained and sent. Luke yen per EMAR. Pt resting in bed requesting crackers and gingerale, awaiting breakfast tray. VSS at this time. Call wise within reach, continue to monitor.
[2020-06-01 07:25] LABS: Glucose, Whole Blood 319 mg/dL (60-115)
[2020-06-01 07:28] LABS: Troponin-I High Sensitivity 72.3 ng/L (<3.5-17.0)
--- NOTE | 2020-06-01 08:30 | CA_ITS ---
Transthoracic Echocardiogram Patient (Last, First, Middle): Gerri Sanchez R Gender: Female Date of : 1935 Age: 84 Procedure Date: 06/01/2020 Procedure Type: Transthoracic Echocardiogram Location: [facility] [place] Height: 152.4 cm Weight: 47.63 kg BSA: 1.42 m2 Heart Rate: bpm BP: 177 / 66 mmHg Air Lift Operator: Referring MD: Benton Ortega MD Symptoms: chf Study Quality: Fair ECG Rhythm: Sinus Conclusions: - 1. Normal LV systolic function with grade 2 diastolic dysfunction 2. Moderately dilated left atrium 3. Normal cardiac valvular Doppler 4. Moderately elevated right ventricular systolic pressure 5. No pericardial effusion Findings Left Ventricle Normal left ventricular size, thickness, and systolic function. The visually estimated ejection fraction is between 60-65%. Spectral Doppler is indicative of a pseudonormal filling pattern. E/E prime ratio is >15, consistent with elevated filling pressures. Evidence suggests grade II (moderate) diastolic dysfunction. Right Ventricle Normal right ventricular cavity size and systolic function. Atria The left atrium is moderately dilated. There is no evidence of interatrial shunt. The right atrium is normal in size. Aortic Valve There is mild thickening of the aortic valve. There is no aortic valve stenosis. There is no aortic valve regurgitation. Mitral Valve There is mild mitral annular calcification. There is mild mitral valve regurgitation. There is no mitral valve stenosis. Pulmonic Valve The pulmonic valve was not well visualized. Tricuspid Valve Likely normal tricuspid valve structure and function. There is mild tricuspid valve regurgitation. The right ventricular systolic pressure is 52 mmHg. Moderate pulmonary hypertension is present. Great Vessels All visible segments of the aorta are normal in size. The pulmonary artery was not well visualized. Venous The inferior vena cava is mildly dilated and collapses less than 50% with inspiration. Pericardium/Pleural There is no evidence of pericardial effusion. Prior Study Comparison No significant change compared to prior study dated: 05/27/2019. Measurements 2D Linear Measurements IVSd: 0.82 0.6-0.9/0.6-1.0 cm LVIDd: 3.44 3.9-5.3/4.2-5.9 cm LVIDd Index: 2.42 2.4-3.2/2.2-3.1 cm/m2 LVIDs: 2.29 2.0-3.6 cm LVPWd: 0.88 0.7-1.1 cm Ao Root: 2.90 2.1-3.5 cm LA Diam: 3.90 2.7-3.8/3.0-4.0 cm LAIDs Index: 2.75 1.5-2.3 cm/m2 LV Mass: 175.63 67-162/88-224 g LV Mass Index: 123.68 43-95/49-115 g/m2 LVOT Diam: 2.10 3.0+(-)1.3 cm Mitral Valve MV Pk E: 1.23 MV PK A: 0.68 MV Decel Time: 144.00 E/A: 1.80 E'Lateral: 8.32 E'Medial: 4.93 E/E' Med: 24.90 E/E' Lat: 14.80 PHT: 42.00 MVA PHT: 5.24 [place]: 8.53 Aortic Valve AoV Pk Nick: 2.00 AoV Mn Nick: 1.49 AoV VTI: 0.46 AoV Pk Grad: 16.00 Aov Mn Grad: 10.00 ZECHARIAH Cont.VTI: 1.93 LVOT LVOT Pk Nick: 1.09 LVOT Mn Nick: 0.84 LVOT VTI: 0.25 LVOT Pk Grad: 5.00 LVOT Mn Grad: 3.00 LVOT Diam: 2.10 LVOT Area: 3.46 Diastolic Function MV Pk E: 1.23 MV Pk A: 0.68 E/A: 1.80 E'Medial: 4.93 E/E' Med: 24.90 E' Laterial: 8.32 E/E' Lat: 14.80 Tricuspid Valve TR Pk Nick: 3.31 TR Pk Grad: 44.00 RA Press: 8.00 RVSP: 52.00 Great Vessels Aorta Ao Root-2D: 2.90 2.0-3.7 cm Ao Asc: 2.90 2.1-3.4 cm Pulmonary Valve PV Pk Nick: 0.80 Peak PV Grad: 3.00 Updated in Other Vendor System with Status of Final Neil Jeong MD electronically signed on 06/01/2020 5:11:44 PM with status of Final
[2020-06-01 09:14] LABS: Glucose, Whole Blood 405 mg/dL (60-115)
[2020-06-01] MEDS: Insulin Lispro 100 UNIT/ML 3 ML VIAL SUBCUT ×3 (09:40→21:55)
[2020-06-01] MEDS: Metoprolol Succinate ER 100 MG TAB.ER.24H PO (09:41)
[2020-06-01] MEDS: hydrALAZINE HCl 10 MG TABLET PO ×2 (09:41→21:54)
[2020-06-01] MEDS: Omeprazole 20 MG CAPSULE.DR PO ×2 (09:41→17:23)
[2020-06-01] MEDS: Insulin Lispro 100 UNIT/ML 3 ML VIAL 6 UNIT SUBCUT ×3 (09:42→16:52)
[2020-06-01 10:11] LABS: Anion Gap 19 (12-20); Blood Urea Nitrogen 38 mg/dL (9-16); Calcium 8.4 mg/dL (8.4-10.2); Carbon Dioxide 21 mmol/L (22-29); Chloride 94 mmol/L (96-108); Creatinine Clr Calc Pharmacy 23.9; Estimated Glomerular Filt Rate 40; Glucose Random 283 mg/dL (60-115); Potassium 4.5 mmol/L (3.3-5.1); Sodium 129 mmol/L (135-145)
[2020-06-01] MEDS: Spironolactone 25 MG TABLET PO (10:32)
[2020-06-01] MEDS: Amiodarone HCL 200 MG TABLET 100 MG PO (10:32)
[2020-06-01 11:33] LABS: Glucose, Whole Blood 295 mg/dL (60-115)
[2020-06-01 16:52] LABS: Glucose, Whole Blood 135 mg/dL (60-115)
[2020-06-01] MEDS: Rivaroxaban 20 MG TABLET PO (17:23)
[2020-06-01 20:38] LABS: Glucose, Whole Blood 242 mg/dL (60-115)
[2020-06-01] MEDS: Atorvastatin Calcium 10 MG TABLET PO (21:54)
[2020-06-02] VITALS (13 sets, daily range): BP systolic 72–122; BP diastolic 40–63; PULSE 99–133; RESP 17–20; TEMP 36.4–37.4; O2SAT 96–100
[2020-06-02] MEDS: Omeprazole 20 MG CAPSULE.DR PO ×2 (06:18→16:34)
[2020-06-02] MEDS: cefTRIAXone sodium 1 GM in 0.9 % Sodium Chloride 50 ML IV (06:18)
[2020-06-02 07:49] LABS: Glucose, Whole Blood 384 mg/dL (60-115)
[2020-06-02] MEDS: Insulin Lispro 100 UNIT/ML 3 ML VIAL 6 UNIT SUBCUT ×3 (08:01→16:34)
[2020-06-02] MEDS: Insulin Lispro 100 UNIT/ML 3 ML VIAL SUBCUT ×4 (08:01→20:33)
[2020-06-02] MEDS: Spironolactone 25 MG TABLET PO (08:02)
[2020-06-02] MEDS: Furosemide 40 MG/4 ML VIAL IVPUSH (08:02)
--- NOTE | 2020-06-02 08:02 | CONS_ITS ---
DATE OF SERVICE: REASON FOR CONSULTATION: Consult requested by the medical team to evaluate and help in management of patient with hyponatremia. HISTORY OF PRESENT ILLNESS: The patient is an 84-year-old female, past medical history of hypertension; diabetes; atrial fibrillation, on Eliquis; diastolic heart failure, who presented to the hospital with shortness of breath. She had shortness of breath on exertion, not associated with any cough or sputum. There is no fever or chills. There is no orthopnea or PND. No lower extremity edema. No chest pain, abdominal pain, nausea, vomiting, diarrhea. She had difficulty taking deep breaths. The patient was hypoxemic with oxygen saturation of 82% on room air. She was placed on a non-rebreather. She had uncontrolled hypertension, systolic blood pressure in the 220s and received IV Lasix with improvement of her blood pressure. Lab work done in the ER showed the patient's sodium level is 126. She has had chronic hyponatremia in the low 130s. BUN and creatinine slightly elevated to 41/1.31. COVID was negative. There is prominent central venous congestion consistent with CHF on x-ray. She denies any dysuria or urgency of urination. REVIEW OF SYSTEMS: As noted above. Other systems are reviewed and negative. PAST MEDICAL HISTORY: History of atrial fibrillation, autonomic dysfunction, type 2 diabetes mellitus, degenerative joint disease, lumbar disk degeneration, hypertension, hypothyroidism, chronic kidney disease stage 3, obstructive sleep apnea, osteopenia, spinal stenosis, type 2 diabetes mellitus, and hyperglycemia. FAMILY HISTORY: Father , had coronary artery disease. Mother also with coronary artery disease. PAST SURGICAL HISTORY: Appendectomy, cataract surgery, section, cholecystectomy, eye surgery, hip replacement, knee replacement, and removal of cyst. PERSONAL AND SOCIAL HISTORY: The patient never smoked. Does not drink alcohol. ALLERGIES: INCLUDE CODEINE, NITROFURANTOIN, PRAVASTATIN, ROSUVASTATIN, SULFA, TRIMETHOPRIM, AND AMLODIPINE. HOME MEDICATIONS: Include amiodarone, hydralazine, insulin, metoprolol, omeprazole, Xarelto, simvastatin, spironolactone, tramadol, eye drops. PHYSICAL EXAMINATION: GENERAL: The patient is resting in the bed awake. VITAL SIGNS: Blood pressure was 177/66, pulse 79, afebrile. HEENT: Shows pupils equal, round, reactive bilaterally to light. No jugular venous distention. NECK: Supple. No thyromegaly is noted. CARDIOVASCULAR SYSTEM: S1, S2 without rub. RESPIRATORY SYSTEM: Air entry decreased in the bases. ABDOMEN: Soft, nontender. No guarding. No rigidity. Bowel sounds normal. EXTREMITIES: Showed no significant edema. LABORATORY DATA: Labs done recently. Sodium 129, potassium 4.5, chloride 94, CO2 21, BUN 38, creatinine 1.28. Hemoglobin 10, hematocrit 30. Serum osmolality was 286. Urinalysis was noted. IMPRESSION: 1. 84-year-old female with hyponatremia. Hyponatremia in this patient likely secondary to hyperglycemia and increased free water in the setting of congestive heart failure. She was not on any medication, which can cause hyponatremia. She does have baseline hyponatremia as well. Her sodium level is improved. 2. Chronic kidney disease stage 3 and I doubt the patient has an acute component of prerenal insufficiency. 3. Congestive heart failure exacerbation. 4. Urinary tract infection. RECOMMENDATIONS: At this juncture, I recommend fluid restriction of 1.5 L. I recommend controlling the blood sugar and trying to keep it around 150 to prevent osmotic diuresis and low sodium. I agree with IV furosemide, which will also help with free water excretion and improving the sodium level. We should continue to follow renal function and sodium level closely. In regard to hypertension, I suspect this is volume related, and her blood pressure is improved with IV Lasix. Thank you for allowing me to participate in medical management of the patient. MD ANA Clemente/SANTIAGO / [id number]
--- NOTE | 2020-06-02 08:27 | MHC.CM.PN ---
Addendum entered by Kim Phillips 06/03/20 13:49: late entry from 06/02- f/u with patients daughter claire regarding [facility] [place] navigation nurse working with patients pcp dr janis contreras assigned ousmane franklinr [phone] ALSO INFOMRED HER OF A IN HOME VIDEO CAM THAT CAN BE VIEWED ON PATIENTS DAUGHTERS PHONE KRYSTA PATIENT WAS [facility] Original Note: nurse manager primary care note electronicmedical record reviewed along with case discussed with staff nurse , hospitlaist sherwin patient [place] WITH HER PERMISSION HER DAUGJHTER /HCP CLAIRE. PATIENT LIVES HOME ALONE , HER DAUGHTER IS THERE WITH HER FOR A FEW HOURS DAILY AND CHECKS IN OUR THROUGHOUT THE DAY HER SON LIVES IN [facility] AND WORKS OUT OFF AND STAYS OVERNOGHT 5PM ,AFTER WORK ,3 NIGHTS A WEEK IN THE PAST [facility]YS[facility], AND AFTER A fall, she reported that she has been to see dr mejias and the [facility], she has a appintment for a neurologist dr bautista at [facility] as she is in chronic pain, patient /daughter would like referral back to the [facility] she has carmen and recenllt has cpap via nasal canula for which patient is still trying to get use to she has shower bars shower chair raised toilet seat a cane and waker at home , she is able to do her adls but at a much slwer pace her daughter , sons extended family make meals for her to just heat up, 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
--- NOTE | 2020-06-02 08:39 | ECG_ITS ---
Test Reason : AFIB Blood Pressure : / mmHG Vent. Rate : 106 BPM Atrial Rate : 119 BPM P-R Int : 000 ms QRS Dur : 106 ms QT Int : 348 ms P-R-T Axes : 000 -47 097 degrees QTc Int : 462 ms Atrial fibrillation with rapid ventricular response Left axis deviation Minimal voltage criteria for LVH, may be normal variant Nonspecific ST abnormality Abnormal QRS-T angle, consider primary T wave abnormality Abnormal ECG When compared with ECG of 01-JUN-2020 01:00, Atrial fibrillation has replaced Normal sinus rhythm Referred By: Corbin Lam Electronically Signed By:MATTEO CARNEY MD
[2020-06-02] MEDS: Amiodarone HCL 200 MG TABLET 100 MG PO (08:41)
[2020-06-02 09:18] LABS: Anion Gap 21 (12-20); Blood Urea Nitrogen 48 mg/dL (9-16); Calcium 8.1 mg/dL (8.4-10.2); Carbon Dioxide 18 mmol/L (22-29); Chloride 94 mmol/L (96-108); Creatinine Clr Calc Pharmacy 18.9; Estimated Glomerular Filt Rate 30; Potassium 4.8 mmol/L (3.3-5.1); Sodium 128 mmol/L (135-145)
[2020-06-02 09:23] LABS: Glucose Random 423 mg/dL (60-115)
[2020-06-02] MEDS: 0.9 % Sodium Chloride 1,000 ML 999 ML IV (09:56)
[2020-06-02] MEDS: Insulin Glargine,Hum.rec.anlog 100 UNIT/ML 10 ML VIAL 15 UNIT SUBCUT (10:29)
--- NOTE | 2020-06-02 10:44 | PC.NURSE ---
0851 HR 133 bp 72/48 manually pt states she felt dizzy, at bedside and orderedfor bolus , po amiodarone given, ekg ordered and completed pt in Afib . 0902 bp 82/40 manually HR 118-125 ,HOB in lowest position . second iv started as precaution . 0930 bp 110/62 manually HR continues 110-128 , made aware , daughter updated from this rn . no further orders pt states she is feeling better . will cont to monitor
--- NOTE | 2020-06-02 11:15 | P.PNIM_ITS ---
Subjective Subjective Date of Service: 06/02/20 Interval History: Patient seen and examined at bedside Patient became hypotensive this morning received IV fluids with improvement in blood pressure Review of Systems Constitutional : No Weight loss, No Fever, No Chills, No Night Sweats, No Fatigue, No Malaise Cardiovascular : dyspnea, no lower extremity edema Respiratory : No Cough, No Sputum, No Wheezing, No Smoke Exposure Gastrointestinal : Complaining of Nausea, No Vomiting, No Diarrhea, No Constipation, No abdominal Pain, No Hematochezia, No Melena Genitourinary : no irregular bleeding, No Dysuria, No Urinary Frequency, No Hematuria, No Urinary Incontinence, No Urgency, No Flank Pain, No Urinary Flow Changes, No Hesitancy Musculoskeletal : No joint pain, No Myalgias, No Joint Swelling Skin : No Skin Lesions, No rash Neuro : No Weakness, No Numbness, No Paresthesias, No Loss of Consciousness, reported Dizziness, No Headache Psych : No Anxiety/Panic, No Depression, No SI/HI/AH/VH, No Social Issues, Heme/Lymph: No Bruising, No Bleeding,No Lymphadenopathy Physical Exam Vital Signs: Vital Signs: Last Vital Signs Temp 97.8 F 06/02/20 07:29 Pulse 122 H 06/02/20 10:32 Resp 17 06/02/20 07:29 BP 93/45 L 06/02/20 10:32 Pulse Ox 96 06/02/20 08:51 Body Mass Index 20.5 Const: General: cooperative and no acute distress Orientation/consciousness: patient oriented x3 Eyes: General: appearance normal, both eyes and all related structures Pupils: Equal, round and reactive pupils present Resp: Effort & Inspection: normal respiratory effort and able to speak in complete sentences Auscultation: rhonchi Cardio: Rate: tachycardic Rhythm: abnormal rhythm GI: Palpation (GI): Soft to palpation Auscultation: normal bowel sounds Skin: General skin exam: no rashes or lesions noted Neuro: General: patient oriented x3 Cranial nerves: Yes Equal, round and reactive pupils present Cognition (Neuro): normal cognition Extrem: General: Yes normal to inspection and Yes no pedal edema Objective Data Current Medications Generic Name Dose Route Start Last Admin Trade Name Freq PRN Reason Stop Dose Admin Amiodarone HCl 100 mg 06/01/20 09:08 06/02/20 08:41 Amiodarone Hcl 200 Mg Tablet PO 100 mg DAILY [facility] Administration Atorvastatin Calcium 10 mg 06/01/20 21:00 06/01/20 21:54 Atorvastatin Calcium 10 Mg Tablet PO 10 mg BEDTIME [facility] Administration Hydralazine HCl 10 mg 06/01/20 09:08 06/02/20 08:49 Hydralazine Hcl 10 Mg Tablet PO Not Given BID [facility] Protocol Ceftriaxone Sodium 1 gm/ 50 mls @ 100 mls/hr 06/01/20 07:00 06/02/20 06:50 Sodium Chloride IV Infused Q24H [facility] Infusion Insulin Glargine 15 unit 06/02/20 09:00 06/02/20 10:29 Insulin Glargine,Hum.Rec.Anlog 100 Unit/Ml 10 Ml Vial SUBCUT 15 unit DAILY [facility] Administration Insulin Human Lispro 0 unit 06/01/20 07:30 06/02/20 08:01 Insulin Lispro 100 Unit/Ml 3 Ml Vial SUBCUT 10 unit QIDACHS [facility] Administration Protocol Insulin Human Lispro 6 unit 06/01/20 09:08 06/02/20 08:01 Insulin Lispro 100 Unit/Ml 3 Ml Vial SUBCUT 6 unit TIDAC [facility] Administration Metoprolol Succinate 100 mg 06/01/20 09:08 06/02/20 08:49 Metoprolol Succinate Er 100 Mg Tab.Er.24h PO Not Given DAILY [facility] Protocol Non-Formulary Medication 13 unit 06/02/20 09:00 Insulin Glargine U-300 Conc [Toujeo Solostar U-300 Insulin] SUBCUT DAILY [facility] Omeprazole 20 mg 06/01/20 09:08 06/02/20 06:18 Omeprazole 20 Mg Capsule.Dr PO 20 mg BID@0630,1630 [facility] Administration Rivaroxaban 20 mg 06/01/20 09:08 06/01/20 17:23 Rivaroxaban 20 Mg Tablet PO 20 mg DAILY@1700 [facility] Administration Spironolactone 25 mg 06/01/20 09:08 06/02/20 08:02 Spironolactone 25 Mg Tablet PO 25 mg DAILY [facility] Administration Protocol Tramadol HCl 50 mg 06/01/20 09:08 Tramadol Hcl 50 Mg Tablet PO DAILY PRN pain Labs CBC & Chem 7: 06/02/20 11:37 06/02/20 08:17 Microbiology Microbiology Results: Microbiology 06/01/20 01:28 Urine clean catch - Clean Catch Midstream Urine Culture - Preliminary Culture in progress. 06/01/20 01:16 Blood - Venous Blood Culture - Preliminary No growth after 24 hours. 06/01/20 01:16 Blood - Venous Blood Culture - Preliminary No growth after 24 hours. Assessment and Plan (1) CHF exacerbation: Status: Acute (2) Acute hyponatremia: Status: Acute (3) Acute alteration in mental status: Status: Acute (4) UTI (urinary tract infection): Status: Acute (5) Elevated troponin: Status: Acute (6) Atrial fibrillation: Status: Acute (7) Hypertension: Status: Acute (8) Type 2 diabetes mellitus with hyperglycemia: Problem details: With retinopathy Status: Acute Assessment and Plan: This is an 84-year-old female with past medical history of hypertension, diabetes, says diastolic heart failure, who presents to the hospital with complaints of shortness of breath Dyspnea likely secondary to Acute on chronic Diastolic CHF Chest x-rays demonstrating pulmonary congestion, has elevated BNP, no evidence of pneumonia on chest x-ray, COVID-19 PCR negative Echo cardiogram done from May 2019 shows ejection fraction of 60-65% with grade 2 diastolic dysfunction Received IV Lasix, blood pressure drop this morning and creatinine trending will hold Lasix Will get Cardiology consult - strict I&O, daily weight, low-sodium diet Continue telemetry monitoring Hyponatremia sodium still around 128 nephrology following Toxic metabolic encephalopathy - secondary to UTI continue rocephin follow up urine culture Mildly elevated troponin second troponin mildly elevated will check 1 more set of troponin no chest pain Hypertensive crisis on admission BP on lower side today BP was in 60s this morning hold antihypertensive BP improved with bolus Atrial fib with RVR HR on higher side continue amiodarone hold lopressor for hypotention continue xarelto Diabetes mellitus continue lantus and SSI monitor BG DVT prophylaxis: xarelto
[2020-06-02 11:45] LABS: MANUAL DIFF FLAG NO
[2020-06-02 11:50] LABS: Basophils Absolute Auto 0.1 X10*3/uL (0.0-0.2); Basophils Percent Auto 0.5 % (0-2); Eosinophils Percent Auto 0.3 % (0-4); Hematocrit 29.9 % (37-47); Hemoglobin 10.1 g/dl (12.0-16.0); Imm Gran Abs Auto 0.07 X10*3/uL (0.00-0.03); Imm Gran Pct Auto 0.7 % (0.0-0.4); Lymphocytes Absolute Auto 0.8 X10*3/uL (1.2-4.9); Lymphocytes Percent Auto 7.8 % (20-40); Mean Corpuscular HGB Conc 33.8 g/dl (31.0-35.0); Mean Corpuscular Hemoglobin 31.3 pg (27.0-33.0); Mean Corpuscular Volume 92.6 fL (80-98); Mean Platelet Volume 10.9 fL (9.4-12.3); Monocytes Absolute Auto 1.4 X10*3/uL (0.1-1.2); Monocytes Percent Auto 14.3 % (2-11); Neutrophils Absolute Auto 7.5 X10*3/uL (2.0-8.3); Neutrophils Percent Auto 76.4 % (45-73); Platelet Count 211 X10*3/uL (160-400); Red Blood Count 3.23 X10*6/uL (4.20-5.50); Red Cell Distribution Width 14.2 % (11.0-16.0); White Blood Count 9.9 X10*3/uL (4.8-10.8)
[2020-06-02 12:13] LABS: Glucose, Whole Blood 263 mg/dL (60-115)
[2020-06-02 12:35] LABS: Troponin-I High Sensitivity 171.9 ng/L (<3.5-17.0)
--- NOTE | 2020-06-02 15:42 | P.CONCA_ITS ---
History of Present Illness History of Present Illness Date of Service: 06/02/20 Requesting physician: Corbin Lam Consult reason: atrial fibrillation and congestive heart failure Chief complaint: CHF Exacerbation, UTI, HYPONATREMIA Narrative: Thank you for calling us on consult on [place] for atrial fibrillation with hypertension this morning. She is 84-year-old woman with prior history of atrial fibrillation with congestive heart failure, cardioverted in 2016 to sinus rhythm and maintained on amiodarone. She has had no hospitalizations since then. She is currently on 100 mg of amiodarone, reduce most likely as an outpatient reduction of long-term toxicity amiodarone. She has no apparent overt atrial fibrillation as outpatient. She however says that she does get short of breath when she walks as outpatient. She lives alone across the [address] from her daughter. She present the hospital with sudden onset shortness of breath was noted to be hypoxic and required 100% non-rebreather. Findings for systolic heart failure with elevated BNP. She was diuresed. She was admitted for treatment. This morning suddenly became lightheaded and tachycardic, EKG consistent with atrial fibrillation. She was hypotensive. Was given fluid bolus. Blood pressure is better controlled. However she remains in atrial fibrillation rapid ventricular response. She is not the best historian. Discussed with the daughter about her medical condition. Her urine output charted may be inaccurate, unsure. Her creatinine is jumped up this morning. She has been getting oral anticoagulation continuously. Review of Systems Constitutional: Constitutional: Denies body ache(s), Denies chills, Denies fatigue, Denies fever(s) and Denies headache(s) ENT: Denies headache(s) Cardiovascular: Cardiovascular: Denies chest pain, Reports lightheadedness, Denies palpitations, Reports dyspnea and Reports orthopnea Respiratory: Respiratory: Denies cough and Reports dyspnea Gastrointestinal: Gastrointestinal: Reports no additional gastrointestinal complaints Musculoskeletal: Musculoskeletal: Reports no additional musculoskeletal compl aints Neurologic: Reports system reviewed and no additional complaints, except as documented, Reports confusion and Denies headache(s) Psychiatric: Psychiatric: Reports no additional psychiatric complaints and Reports confusion Endocrine: Endocrine: Reports no additional endocrine complaints, Denies fatigue and Denies palpitations PMFSH Past Medical History Medical History Atrial fibrillation 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 Degenerative disc disease, lumbar Disc degeneration, lumbar Hypertension Hypothyroid Iliotibial band syndrome of right side Obstructive sleep apnea Osteopenia Spinal stenosis of lumbar region Type 2 diabetes mellitus with hyperglycemia Family History Family History Father CVD (cardiovascular disease) Mother CVD (cardiovascular disease) Stroke Surgical History Surgical History History of appendectomy History of cataract surgery History of section History of cholecystectomy History of eye surgery History of hip replacement History of knee replacement History of removal of cyst Social History Social History Household Members: None Housing: House Do you presently have visiting nurse or other home services: No Alcohol intake: never Smoking Status: Never smoker Second Hand Smoke Exposure: No Use of substances other than those prescribed or required for medical reasons: No Currently Displaying Signs/Symptoms of Drug Intoxication Withdrawal: No Have you been hit, kicked, punched, or otherwise hurt by someone within the past year? If so, by whom?: No Do you feel safe in your current relationship?: No Current Relationship Is there a partner from a previous relationship who is making you feel unsafe now?: No Are you made to feel afraid or neglected: No Advance Directives: No Advance Directives Information Provided: No Do you have thoughts of harming others: None Do you have a plan to hurt others: No Plan Recently lost weight without trying: No service: No Current occupational status: retired Meds Allergies Allergy/AdvReac Type Severity Reaction Status Date / Time codeine Allergy Intermediate TACHYCARDIA Verified 05/19/20 10:12 nitrofurantoin [Macrobid] Allergy Unknown confusion Verified 05/19/20 10:12 pravastatin Allergy Unknown Unknown Verified 05/19/20 10:12 rosuvastatin [Crestor] Allergy Unknown Unknown Verified 05/19/20 10:12 Sulfa (Sulfonamide Allergy Unknown unknown Verified 05/19/20 10:12 Antibiotics) sulfamethoxazole Allergy Unknown Unknown Verified 05/19/20 10:12 [From Bactrim] trimethoprim [From Bactrim] Allergy Unknown Unknown Verified 05/19/20 10:12 amlodipine AdvReac Intermediate leg Verified 05/19/20 10:12 swelling Active Medications: Current Medications Generic Name Dose Route Start Last Admin Trade Name Debbie PRN Reason Stop Dose Admin Atorvastatin Calcium 10 mg 06/01/20 21:00 06/01/20 21:54 Atorvastatin Calcium 10 Mg Tablet PO 10 mg BEDTIME [facility] Administration Ceftriaxone Sodium 1 gm/ 50 mls @ 100 mls/hr 06/01/20 07:00 06/02/20 06:50 Sodium Chloride IV Infused Q24H ENA Infusion Amiodarone HCl 900 mg/ Sodium 518 mls @ 34.533 mls/hr 06/02/20 15:30 Chloride IVCONT .Q15H1M [facility] Protocol 1 MG/MIN Insulin Glargine 15 unit 06/02/20 09:00 06/02/20 10:29 Insulin Glargine,Hum.Rec.Anlog 100 Unit/Ml 10 Ml Vial SUBCUT 15 unit DAILY [facility] Administration Insulin Human Lispro 0 unit 06/01/20 07:30 06/02/20 12:14 Insulin Lispro 100 Unit/Ml 3 Ml Vial SUBCUT 6 unit QIDACHS [facility] Administration Protocol Insulin Human Lispro 6 unit 06/01/20 09:08 06/02/20 12:15 Insulin Lispro 100 Unit/Ml 3 Ml Vial SUBCUT 6 unit TIDAC [facility] Administration Metoprolol Succinate 100 mg 06/01/20 09:08 06/02/20 08:49 Metoprolol Succinate Er 100 Mg Tab.Er.24h PO Not Given DAILY [facility] Protocol Non-Formulary Medication 13 unit 06/02/20 09:00 Insulin Glargine U-300 Conc [Toujeo Solostar U-300 Insulin] SUBCUT DAILY [facility] Omeprazole 20 mg 06/01/20 09:08 06/02/20 06:18 Omeprazole 20 Mg Capsule.Dr PO 20 mg BID@0630,1630 [facility] Administration Rivaroxaban 20 mg 06/01/20 09:08 06/01/20 17:23 Rivaroxaban 20 Mg Tablet PO 20 mg DAILY@1700 [facility] Administration Spironolactone 25 mg 06/01/20 09:08 06/02/20 08:02 Spironolactone 25 Mg Tablet PO 25 mg DAILY [facility] Administration Protocol Tramadol HCl 50 mg 06/01/20 09:08 Tramadol Hcl 50 Mg Tablet PO DAILY PRN pain Home Medications Medication Instructions Recorded Confirmed Last Taken Type amiodarone 100 mg PO DAILY 06/01/20 06/01/20 Unknown History hydralazine 1 tab PO BID 06/01/20 06/01/20 Unknown History insulin glargine U-300 conc 13 unit SUBCUT QAM 06/01/20 06/01/20 Unknown History [Everette ChildersoStar U-300 Insulin] insulin lispro [Humalog KwikPen 6 unit SUBCUT TID 06/01/20 06/01/20 Unknown History Insulin] levothyroxine 1 tab PO DAILY 06/01/20 06/01/20 Unknown History losartan 50 mg PO DAILY 06/01/20 06/01/20 Unknown History metoprolol succinate 1 tab PO DAILY 06/01/20 06/01/20 Unknown History omeprazole 1 cap PO BID 06/01/20 06/01/20 Unknown History pen needle, diabetic [BD Eveline 2nd 06/01/20 06/01/20 Unknown History Gen Pen Needle] rivaroxaban [Xarelto] 1 tab PO DAILY 06/01/20 06/01/20 Unknown History simvastatin 1 tab PO BEDTIME 06/01/20 06/01/20 Unknown History spironolactone 1 tab PO DAILY 06/01/20 06/01/20 Unknown History tramadol 1 tab PO DAILY PRN 06/01/20 06/01/20 Unknown History travoprost drp OPHTHALMIC (EYE) 06/01/20 Unknown History Physical Exam Vital Signs: Vital Signs: Last Vital Signs Temp 97.6 F 06/02/20 15:24 Pulse 109 H 06/02/20 15:24 Resp 18 06/02/20 15:24 BP 104/51 L 06/02/20 15:24 Pulse Ox 96 06/02/20 15:24 Body Mass Index 20.5 Const: General: cooperative, comfortable, no acute distress, alert, awake and confusion Nutritional Appearance: thin Orientation/consciousness: confusion HENMT: Head: Yes normocephalic and Yes atraumatic Neck: Neck: Yes trachea midline, Yes supple and Yes no JVD Resp: Effort & Inspection: decreased respiratory effort Auscultation: rales Cardio: Rate: tachycardic Rhythm: abnormal rhythm irregularly irregular Heart sounds: S1 normal heart sound present and S2 normal heart sound present GI: Auscultation: normal bowel sounds Skin: General skin exam: no rashes or lesions noted Neuro: General: confusion Extrem: General: Yes no clubbing, cyanosis or edema Psych: Appearance: grossly normal Results Labs and Meds Result diagrams: 06/02/20 11:37 06/02/20 08:17 Lab results: Laboratory Results - last 24 hr 06/01/20 06/01/20 06/02/20 16:49 20:34 07:28 WBC RBC Hgb Hct MCV MCH MCHC RDW Plt Count MPV Immature Gran % (Auto) Neut % (Auto) Lymph % (Auto) [place] % (Auto) Eos % (Auto) Baso % (Auto) Lymph # (Auto) [place] # (Auto) Eos # (Auto) Baso # (Auto) Abs Immat Gran (auto) Absolute Neuts (auto) Absolute Nucleated RBC Nucleated RBC % (auto) Sodium Potassium Chloride Carbon Dioxide Anion Gap BUN Creatinine Estim Creat Clear Calc Estimated GFR POC Glucose 135 H 242 H 384 H* Random Glucose Calcium Troponin I High Sens 06/02/20 06/02/20 06/02/20 08:17 11:11 11:37 WBC 9.9 RBC 3.23 L Hgb 10.1 L Hct 29.9 L MCV 92.6 MCH 31.3 MCHC 33.8 RDW 14.2 Plt Count 211 MPV 10.9 Immature Gran % (Auto) 0.7 H Neut % (Auto) 76.4 H Lymph % (Auto) 7.8 L [place] % (Auto) 14.3 H Eos % (Auto) 0.3 Baso % (Auto) 0.5 Lymph # (Auto) 0.8 L [place] # (Auto) 1.4 H Eos # (Auto) 0.0 Baso # (Auto) 0.1 Abs Immat Gran (auto) 0.07 H Absolute Neuts (auto) 7.5 Absolute Nucleated RBC 0.000 Nucleated RBC % (auto) 0.0 Sodium 128 L Potassium 4.8 Chloride 94 L Carbon Dioxide 18 L Anion Gap 21 H BUN 48 H Creatinine 1.62 H Estim Creat Clear Calc 18.9 Estimated GFR 30 POC Glucose 263 H Random Glucose 423 H* Calcium 8.1 L Troponin I High Sens 06/02/20 11:37 WBC RBC Hgb Hct MCV MCH MCHC RDW Plt Count MPV Immature Gran % (Auto) Neut % (Auto) Lymph % (Auto) [place] % (Auto) Eos % (Auto) Baso % (Auto) Lymph # (Auto) [place] # (Auto) Eos # (Auto) Baso # (Auto) Abs Immat Gran (auto) Absolute Neuts (auto) Absolute Nucleated RBC Nucleated RBC % (auto) Sodium Potassium Chloride Carbon Dioxide Anion Gap BUN Creatinine Estim Creat Clear Calc Estimated GFR POC Glucose Random Glucose Calcium Troponin I High Sens 171.9 H D EKG shows atrial fibrillation rapid ventricular response. Imaging Radiologist's impression: Impressions Pulmonary Perfusion Imaging 06/02/20 12:05 IMPRESSION: Mild heterogeneous perfusion but no convincing evidence of a segmental defect. Findings suggest low probability for pulmonary embolism Assessment and Plan (1) Atrial fibrillation: Qualifiers: Atrial fibrillation type: paroxysmal Qualified Code(s): I48.0 - Paroxysmal atrial fibrillation Status: Acute Recurrent atrial fibrillation despite low-dose amiodarone therapy. Currently maintained on oral anticoagulation with Xarelto. Poorly tolerated atrial fibrillation with low blood pressure, heart failure as well as rising creatinine due to low stroke volume. Would benefit rhythm control approach. However given patient's cognitive dysfunction, not sure if synchronized cardioversion acutely will be performed. This was discussed with the daughter in detail and she is also not sure. At this time we discussed about starting on IV amiodarone drip with hopes of chemically cardioverting her back to normal rhythm. Will start on a usual loading dose along with drip. If she does not convert back to sinus rhythm will perform synchronized cardioversion tomorrow. Please keep her NPO past midnight. She has done extremely well with rhythm c ontrol approach in the past and has had no hospitalization with that in last 4+ years. Discuss this with her. Continue Xarelto therapy. (2) CHF exacerbation: Status: Acute CHF exacerbation related to most likely atrial fibrillation. Not sure if she had episode of atrial fibrillation at home that caused her to have sudden shortness of breath. Try to maintain rhythm as above. Her diuretics have been held because of low blood pressure. Once she is in sinus rhythm and blood pressure control will continue with diuresis. Continue to monitor BMP as well as BNP. Will follow with the patient. Procedures Date of Service Date of Service: 06/02/20
[2020-06-02 16:14] LABS: Glucose, Whole Blood 197 mg/dL (60-115)
[2020-06-02] MEDS: Rivaroxaban 20 MG TABLET PO (16:34)
[2020-06-02] MEDS: Amiodarone/Dextrose 150 MG/100 ML PLAST..BAG 600 MG IV (17:35)
[2020-06-02] MEDS: Amiodarone HCL 900 MG in 0.9 % Sodium Chloride 500 ML 34.53 MG IVCONT (17:59)
--- NOTE | 2020-06-02 19:09 | P.PNNP_ITS ---
Subjective Subjective Date of Service: 06/02/20 Interval history: Patient seen and examined at bedside Patient became hypotensive this morning received IV fluids with improvement in blood pressure Na level is better but Creatinine is higher Physical Exam Vital Signs: Vital Signs: Last Vital Signs Temp 98.6 F 06/02/20 18:59 Pulse 120 H 06/02/20 18:59 Resp 18 06/02/20 18:59 BP 112/54 L 06/02/20 18:59 Pulse Ox 98 06/02/20 18:59 Body Mass Index 20.5 Const: General: cooperative, comfortable, no acute distress, alert, awake and confusion Nutritional Appearance: thin Orientation/consciousness: patient oriented x3 and confusion HENMT: Head: Yes normocephalic and Yes atraumatic Eyes: General: appearance normal, both eyes and all related structures Pu pils: Equal, round and reactive pupils present Neck: Neck: Yes trachea midline, Yes supple and Yes no JVD Resp: Effort & Inspection: normal respiratory effort, able to speak in complete sentences and decreased respiratory effort Auscultation: rales and rhonchi Cardio: Rate: regular rate and tachycardic Rhythm: regular rhythm and abnormal rhythm irregularly irregular Heart sounds: S1 normal heart sound present and S2 normal heart sound present GI: Palpation (GI): Soft to palpation Auscultation: normal bowel sounds Skin: General skin exam: no rashes or lesions noted Neuro: General: patient oriented x3 and confusion Cranial nerves: Yes Equal, round and reactive pupils present Cognition (Neuro): normal cognition Extrem: General: Yes normal to inspection, Yes no clubbing, cyanosis or edema and Yes no pedal edema Psych: Appearance: grossly normal Objective Data Labs CBC & Chem 7: 06/02/20 11:37 06/02/20 08:17 Labs: Laboratory Results - last 24 hr 06/01/20 06/02/20 06/02/20 20:34 07:28 08:17 WBC RBC Hgb Hct MCV MCH MCHC RDW Plt Count MPV Immature Gran % (Auto) Neut % (Auto) Lymph % (Auto) [place] % (Auto) Eos % (Auto) Baso % (Auto) Lymph # (Auto) [place] # (Auto) Eos # (Auto) Baso # (Auto) Abs Immat Gran (auto) Absolute Neuts (auto) Absolute Nucleated RBC Nucleated RBC % (auto) Sodium 128 L Potassium 4.8 Chloride 94 L Carbon Dioxide 18 L Anion Gap 21 H BUN 48 H Creatinine 1.62 H Estim Creat Clear Calc 18.9 Estimated GFR 30 POC Glucose 242 H 384 H* Random Glucose 423 H* Calcium 8.1 L Troponin I High Sens 06/02/20 06/02/20 06/02/20 11:11 11:37 11:37 WBC 9.9 RBC 3.23 L Hgb 10.1 L Hct 29.9 L MCV 92.6 MCH 31.3 MCHC 33.8 RDW 14.2 Plt Count 211 MPV 10.9 Immature Gran % (Auto) 0.7 H Neut % (Auto) 76.4 H Lymph % (Auto) 7.8 L [place] % (Auto) 14.3 H Eos % (Auto) 0.3 Baso % (Auto) 0.5 Lymph # (Auto) 0.8 L [place] # (Auto) 1.4 H Eos # (Auto) 0.0 Baso # (Auto) 0.1 Abs Immat Gran (auto) 0.07 H Absolute Neuts (auto) 7.5 Absolute Nucleated RBC 0.000 Nucleated RBC % (auto) 0.0 Sodium Potassium Chloride Carbon Dioxide Anion Gap BUN Creatinine Estim Creat Clear Calc Estimated GFR POC Glucose 263 H Random Glucose Calcium Troponin I High Sens 171.9 H D 06/02/20 16:06 WBC RBC Hgb Hct MCV MCH MCHC RDW Plt Count MPV Immature Gran % (Auto) Neut % (Auto) Lymph % (Auto) [place] % (Auto) Eos % (Auto) Baso % (Auto) Lymph # (Auto) [place] # (Auto) Eos # (Auto) Baso # (Auto) Abs Immat Gran (auto) Absolute Neuts (auto) Absolute Nucleated RBC Nucleated RBC % (auto) Sodium Potassium Chloride Carbon Dioxide Anion Gap BUN Creatinine Estim Creat Clear Calc Estimated GFR POC Glucose 197 H Random Glucose Calcium Troponin I High Sens Microbiology Microbiology Results: Microbiology 06/01/20 01:28 Urine clean catch - Clean Catch Midstream Urine Culture - Preliminary Culture in progress. 06/01/20 01:16 Blood - Venous Blood Culture - Preliminary No growth after 24 hours. 06/01/20 01:16 Blood - Venous Blood Culture - Preliminary No growth after 24 hours. Assessment & Plan Assessment and plan (1) Atrial fibrillation: Status: Acute (2) CHF exacerbation: Status: Acute Assessment and Plan: IMPRESSION: 1. 84-year-old female with hyponatremia. Hyponatremia in this patient likely secondary to hyperglycemia and increased free water in the setting of congestive heart failure. She was not on any medication, which can cause hyponatremia. She does have baseline hyponatremia as well. Her sodium level is improved. 2. New JAZ - due to Hypotension/ Diuresis / Hyperglycemia with over diuresis 2. Chronic kidney disease stage 3 and I doubt the patient has an acute component of prerenal insufficiency. 3. Congestive heart failure exacerbation. 4. Urinary tract infection. RECOMMENDATIONS: Agree with D/c'g diuretics Agree with 1000 ml IVF F/u renal func Nataliia NA is better I recommend controlling the blood sugar and trying to keep it around 150 to prevent osmotic diuresis and low sodium. I agree with IV furosemide, which will also help with free water excretion and improving the sodium level. We should continue to follow renal function and sodium level closely. In regard to hypertension, I suspect this is volume related and was very low with diuresis Thank you for allowing me to participate in medical management of the patient. Time Spent With Patient Time: Total time spent is greater than 50% in coordination of care (as documented) at patient's floor/unit and/or counseling patient: Procedures Date of Service Date of Service: 06/02/20
[2020-06-02 19:48] LABS: Glucose, Whole Blood 190 mg/dL (60-115)
[2020-06-02] MEDS: Atorvastatin Calcium 10 MG TABLET PO (20:32)
[2020-06-03] VITALS (19 sets, daily range): BP systolic 121–173; BP diastolic 48–75; PULSE 69–118; RESP 14–20; TEMP 36.6–37.1; O2SAT 95–100; BMI 28.0; BMI 28.3
[2020-06-03] MEDS: cefTRIAXone sodium 1 GM in 0.9 % Sodium Chloride 50 ML IV (07:00)
[2020-06-03 08:20] LABS: Glucose, Whole Blood 393 mg/dL (60-115)
[2020-06-03] MEDS: Insulin Lispro 100 UNIT/ML 3 ML VIAL SUBCUT ×3 (08:39→20:19)
[2020-06-03] MEDS: Insulin Glargine,Hum.rec.anlog 100 UNIT/ML 10 ML VIAL 15 UNIT SUBCUT (08:40)
[2020-06-03] MEDS: Metoprolol Succinate ER 100 MG TAB.ER.24H PO (08:42)
[2020-06-03] MEDS: Spironolactone 25 MG TABLET PO (08:42)
--- NOTE | 2020-06-03 09:03 | PM.PNCARD ---
Subjective Subjective Date of Service: 06/03/20 <MONICA Plasencia - Last Filed: 06/03/20 09:42> 06/03/20 <Neil Jeong MD - Last Filed: 06/03/20 10:02> Principal diagnosis: Afib RVR, CHF <MONICA Plasencia - Last Filed: 06/03/20 09:42> Interval history: Cardiology follow up for afib, CHF. Seen at 0900. Today she reports her breathing is fine. Slept well. Wearing O2 with nasal cannula. Denies chest pains or heart palpitations. Reports having a shock procedure today and upset that she hasn't had breakfast yet. Reports compliance with home meds including Xarelto daily. <MONICA Plasencia - Last Filed: 06/03/20 09:42> Review of Systems Review of Systems as above <MONICA Plasencia - Last Filed: 06/03/20 09:42> Yes all other systems are reviewed and are negative <MONICA Plasencia - Last Filed: 06/03/20 09:42> Physical Exam Vital Signs: Last Vital Signs Temp 98.2 F 06/03/20 07:26 Pulse 117 H 06/03/20 08:42 Resp 17 06/03/20 07:26 BP 140/75 H 06/03/20 08:42 Pulse Ox 99 06/03/20 07:26 Body Mass Index 28.0 <MONICA Plasencia - Last Filed: 06/03/20 09:42> Const General: cooperative, no acute distress, alert and awake <MONICA Plasencia - Last Filed: 06/03/20 09:42> Orientation/consciousness: patient oriented x3 <MONICA Plasencia - Last Filed: 06/03/20 09:42> Neck Neck: Yes normal visual inspection <MONICA Plasencia Last Filed: 06/03/20 09:42> Resp Other: Lungs with fine rales scattered in bases <MONICA Plasencia - Last Filed: 06/03/20 09:42> Effort & Inspection: normal respiratory effort, able to speak in complete sentences and not labored <Kerry FelixARACELI-C - Last Filed: 06/03/20 09:42> Auscultation: clear to auscultation bilaterally, no rhonchi and no wheezes <Kerry Felix NDT INSPECTOR-C - Last Filed: 06/03/20 09:42> Cardio Other: Heart tones rapid and irregularly irregular <Kerry Felix NDT INSPECTORC - Last Filed: 06/03/20 09:42> Jugular venous distension: JVD (mild JVD elevation) <Kerry FelixARACELI-C - Last Filed: 06/03/20 09:42> Palpation: normal PMI <Kerry FelixARACELIC - Last Filed: 06/03/20 09:42> Heart sounds: S1 normal heart sound present and S2 normal heart sound present <Kerry FelixARACELI-C - Last Filed: 06/03/20 09:42> Peripheral pulses: Peripheral pulses 2+ throughout <Kerry FelixARACELI-C - Last Filed: 06/03/20 09:42> GI Inspection: Yes normal to inspection <Kerry FelixARACELI-C - Last Filed: 06/03/20 09:42> Skin General skin exam: no rashes or lesions noted <Kerry FelixARACELI-C - Last Filed: 06/03/20 09:42> Neuro General: patient oriented x3 <Kerry FelixARACELI-C - Last Filed: 06/03/20 09:42> Extrem General: Yes normal to inspection and No edema <Kerry FelixARACELI-C - Last Filed: 06/03/20 09:42> Results Labs and Meds Result diagrams: : 06/02/20 11:37 06/03/20 08:42 <Kerry FelixARACEIL-C - Last Filed: 06/03/20 09:42> Lab results: Laboratory Results - last 24 hr 06/02/20 06/02/20 06/02/20 08:17 11:11 11:37 WBC 9.9 RBC 3.23 L Hgb 10.1 L Hct 29.9 L MCV 92.6 MCH 31.3 MCHC 33.8 RDW 14.2 Plt Count 211 MPV 10.9 Immature Gran % (Auto) 0.7 H Neut % (Auto) 76.4 H Lymph % (Auto) 7.8 L Vernon % (Auto) 14.3 H Eos % (Auto) 0.3 Baso % (Auto) 0.5 Lymph # (Auto) 0.8 L Vernon # (Auto) 1.4 H Eos # (Auto) 0.0 Baso # (Auto) 0.1 Abs Immat Gran (auto) 0.07 H Absolute Neuts (auto) 7.5 Absolute Nucleated RBC 0.000 Nucleated RBC % (auto) 0.0 Sodium 128 L Potassium 4.8 Chloride 94 L Carbon Dioxide 18 L Anion Gap 21 H BUN 48 H Creatinine 1.62 H Estim Creat Clear Calc 18.9 Estimated GFR 30 POC Glucose 263 H Random Glucose 423 H* Calcium 8.1 L Troponin I High Sens 06/02/20 06/02/20 06/02/20 11:37 16:06 19:37 WBC RBC Hgb Hct MCV MCH MCHC RDW Plt Count MPV Immature Gran % (Auto) Neut % (Auto) Lymph % (Auto) Vernon % (Auto) Eos % (Auto) Baso % (Auto) Lymph # (Auto) Vernon # (Auto) Eos # (Auto) Baso # (Auto) Abs Immat Gran (auto) Absolute Neuts (auto) Absolute Nucleated RBC Nucleated RBC % (auto) Sodium Potassium Chloride Carbon Dioxide Anion Gap BUN Creatinine Estim Creat Clear Calc Estimated GFR POC Glucose 197 H 190 H Random Glucose Calcium Troponin I High Sens 171.9 H D 06/03/20 08:12 WBC RBC Hgb Hct MCV MCH MCHC RDW Plt Count MPV Immature Gran % (Auto) Neut % (Auto) Lymph % (Auto) Vernon % (Auto) Eos % (Auto) Baso % (Auto) Lymph # (Auto) Vernon # (Auto) Eos # (Auto) Baso # (Auto) Abs Immat Gran (auto) Absolute Neuts (auto) Absolute Nucleated RBC Nucleated RBC % (auto) Sodium Potassium Chloride Carbon Dioxide Anion Gap BUN Creatinine Estim Creat Clear Calc Estimated GFR POC Glucose 393 H* Random Glucose Calcium Troponin I High Sens <MONICA Plasencia - Last Filed: 06/03/20 09:42> Imaging Radiologist's impression: Impressions Pulmonary Perfusion Imaging 06/02/20 12:05 IMPRESSION: Mild heterogeneous perfusion but no convincing evidence of a segmental defect. Findings suggest low probability for pulmonary embolism <MONICA Plasencia - Last Filed: 06/03/20 09:42> Progress Note: A&P Assessment and plan (1) Atrial fibrillation: Status: Acute <MONICA Plasencia - Last Filed: 06/03/20 09:42> Assessment and Plan: Hx of afib with CVR 2016. Has been maintained on Amiodarone without known reoccurrence until now. Presented with sob, hypoxia. EKG/ Tele showing Afib RVR. Started on Amiodarone drip. Treated for acute HFpEF. Echo shows EF 60-65%, grade II diastolic dysfunction, mod LA dilation, mod increase RVSP. Had been doing well with rhythm control and will pursue the same. Remains on Amiodarone drip this am and Tele shows afib RVR with rates averaging 110-120s. No report of CP or palpitation. Still has evidence of mild fluid overload. NPO for CVR this am, scheduled for 11am. Telephone consent obtained from daughter Yue, with witness. Has been on Xarelto, reportedly uninterrupted, as outpt and continued as inpt. Continue on Metoprolol, Amio drip. Further med orders post CVR. <MONICA Plasencia - Last Filed: 06/03/20 09:42> Case was discussed with Kerry Felix. Patient was seen and examined. Persistent atrial fibrillation with difficult to control rate despite amiodarone therapy in no conversion. She has tolerated atrial fibrillation poorly in the past as well as currently with decompensated heart failure, hypertension and renal insufficiency. Discussed with daughter over the phone and obtain a consent for synchronized cardioversion. Both patient and daughter agreeable at this point time. Will try to perform this today. There has been no interruption in Xarelto therapy. Risks, benefits, alternatives 2nd opinion was discussed. If she converts successfully, will increase amiodarone dose with some loading. <Neil Jeong MD - Last Filed: 06/03/20 10:02> (2) CHF exacerbation: Status: Acute <MONICA Plasencia - Last Filed: 06/03/20 09:42> Assessment and Plan: Acute HFpEF with hypoxia, elevated BNP in setting of afib RVR. Echo as above. Was treated with IV Lasix and continued on her usual home aldactone. Fluid balance remains +, assuming accuracy. She denies any sob this am.Wearing O2 2L and sat 99%. Has mild JVD and scattered rales. Will start on Lasix 20mg IV bid. Labs from this am pending. <MONICA Plasencia - Last Filed: 06/03/20 09:42> (3) Hypertension: Status: Acute <MONICA Plasencia - Last Filed: 06/03/20 09:42> (4) CHF (congestive heart failure): Status: Acute <MONICA Plasencia - Last Filed: 06/03/20 09:42> Assessment and Plan: CHF most likely due to recurrent atrial fibrillation as has in the past. Remains mildly fluid overloaded. Creatinine is improved. Will diurese gently with Lasix 20 mg IV b.i.d. avoid aggressive diuresis. Strict intake and output chart needs to be pursued. Continue to monitor BMP and BNP. Will follow the patient. <Neil Jeong MD - Last Filed: 06/03/20 10:02> Fall Risk Details Current Medications: Current Medications Generic Name Dose Route Start Last Admin Trade Name Freq PRN Reason Stop Dose Admin Atorvastatin Calcium 10 mg 06/01/20 21:00 06/02/20 20:32 Atorvastatin Calcium 10 Mg Tablet PO 10 mg BEDTIME ENA Administration Ceftriaxone Sodium 1 gm/ 50 mls @ 100 mls/hr 06/01/20 07:00 06/03/20 07:39 Sodium Chloride IV Infused Q24H ENA Infusion Amiodarone HCl 900 mg/ Sodium 518 mls @ 34.533 mls/hr 06/02/20 15:30 06/03/20 06:35 Chloride IVCONT Not Given .Q15H1M ENA Protocol 1 MG/MIN Insulin Glargine 15 unit 06/02/20 09:00 06/03/20 08:40 Insulin Glargine,Hum.Rec.Anlog 100 Unit/Ml 10 Ml Vial SUBCUT 15 unit DAILY ENA Administration Insulin Human Lispro 0 unit 06/01/20 07:30 06/03/20 08:39 Insulin Lispro 100 Unit/Ml 3 Ml Vial SUBCUT 10 unit QIDACHS ENA Administration Protocol Insulin Human Lispro 6 unit 06/01/20 09:08 06/03/20 08:41 Insulin Lispro 100 Unit/Ml 3 Ml Vial SUBCUT Not Given TIDAC [facility] Metoprolol Succinate 100 mg 06/01/20 09:08 06/03/20 08:42 Metoprolol Succinate Er 100 Mg Tab.Er.24h PO 100 mg DAILY [facility] Administration Protocol Omeprazole 20 mg 06/01/20 09:08 06/03/20 06:20 Omeprazole 20 Mg Capsule.Dr PO Not Given BID@0630,1630 [facility] Rivaroxaban 20 mg 06/01/20 09:08 06/02/20 16:34 Rivaroxaban 20 Mg Tablet PO 20 mg DAILY@1700 [facility] Administration Spironolactone 25 mg 06/01/20 09:08 06/03/20 08:42 Spironolactone 25 Mg Tablet PO 25 mg DAILY [facility] Administration Protocol Tramadol HCl 50 mg 06/01/20 09:08 Tramadol Hcl 50 Mg Tablet PO DAILY PRN pain <MONICA Plasencia - Last Filed: 06/03/20 09:42> Time Spent With Patient Time: Total time spent is greater than 50% in coordination of care (as documented) at patient's floor/unit and/or counseling patient: 18 <MONICA Plasencia - Last Filed: 06/03/20 09:42> Time with patient: 15 - 24 minutes <MONICA Plasencia - Last Filed: 06/03/20 09:42> Procedures Date of Service Date of Service: 06/03/20 <MONICA Plasencia - Last Filed: 06/03/20 09:42>
[2020-06-03 09:38] LABS: Anion Gap 15 (12-20); Carbon Dioxide 24 mmol/L (22-29); Chloride 98 mmol/L (96-108); Sodium 132 mmol/L (135-145)
[2020-06-03 09:39] LABS: Blood Urea Nitrogen 46 mg/dL (9-16); Calcium 7.9 mg/dL (8.4-10.2); Creatinine Clr Calc Pharmacy 28.4; Estimated Glomerular Filt Rate 41
[2020-06-03 10:21] LABS: Glucose, Whole Blood 274 mg/dL (60-115)
[2020-06-03 10:44] LABS: Glucose Random 451 mg/dL (60-115)
--- NOTE | 2020-06-03 11:00 | P.CONAN_ITS ---
[facility] Active Problems Active Problems: All Active Problems (Updated 06/02/20 @ 11:24 by Corbin Lam MD) UTI (urinary tract infection) (Acute) CHF exacerbation (Acute) CHF (congestive heart failure) (Acute) Acute hyponatremia (Acute) Acute alteration in mental status (Acute) Acute hyperglycemia (Acute) Elevated troponin (Acute) Renal cyst, left (Acute) Lumbar disc herniation with radiculopathy (Acute) Radicular low back pain (Acute) Hip pain, right (Acute) Obstructive sleep apnea (Acute) Frequency of micturition (Acute) Atrial fibrillation (Acute) Iliotibial band syndrome of right side (Acute) Disc degeneration, lumbar (Acute) History of knee replacement (Acute) Pain of right lateral upper thigh (Acute) Cognitive dysfunction (Acute) 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 (Acute) Hypothyroid (Acute) Hypertension (Acute) Type 2 diabetes mellitus with hyperglycemia (Acute) Past Medical History Medical History Atrial fibrillation 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 Degenerative disc disease, lumbar Disc degeneration, lumbar Hypertension Hypothyroid Iliotibial band syndrome of right side Obstructive sleep apnea Osteopenia Spinal stenosis of lumbar region Type 2 diabetes mellitus with hyperglycemia Family History Family History Father CVD (cardiovascular disease) Mother CVD (cardiovascular disease) Stroke Surgical History Surgical History History of appendectomy History of cataract surgery History of section History of cholecystectomy History of eye surgery History of hip replacement History of knee replacement History of removal of cyst Social History Social History Household Members: None Housing: House Do you presently have visiting nurse or other home services: No Alcohol intake: never Smoking Status: Never smoker Second Hand Smoke Exposure: No Use of substances other than those prescribed or required for medical reasons: No Currently Displaying Signs/Symptoms of Drug Intoxication Withdrawal: No Have you been hit, kicked, punched, or otherwise hurt by someone within the past year? If so, by whom?: No Do you feel safe in your current relationship?: No Current Relationship Is there a partner from a previous relationship who is making you feel unsafe now?: No Are you made to feel afraid or neglected: No Advance Directives: No Advance Directives Information Provided: No Do you have thoughts of harming others: None Do you have a plan to hurt others: No Plan Recently lost weight without trying: No service: No Current occupational status: retired Meds Allergies Allergy/AdvReac Type Severity Reaction Status Date / Time codeine Allergy Intermediate TACHYCARDIA Verified 05/19/20 10:12 nitrofurantoin [Macrobid] Allergy Unknown confusion Verified 05/19/20 10:12 pravastatin Allergy Unknown Unknown Verified 05/19/20 10:12 rosuvastatin [Crestor] Allergy Unknown Unknown Verified 05/19/20 10:12 Sulfa (Sulfonamide Allergy Unknown unknown Verified 05/19/20 10:12 Antibiotics) sulfamethoxazole Allergy Unknown Unknown Verified 05/19/20 10:12 [From Bactrim] trimethoprim [From Bactrim] Allergy Unknown Unknown Verified 05/19/20 10:12 amlodipine AdvReac Intermediate leg Verified 05/19/20 10:12 swelling Active Medications: Current Medications Generic Name Dose Route Start Last Admin Trade Name Freq PRN Reason Stop Dose Admin Atorvastatin Calcium 10 mg 06/01/20 21:00 06/02/20 20:32 Atorvastatin Calcium 10 Mg Tablet PO 10 mg BEDTIME ENA Administration Furosemide 20 mg 06/03/20 09:45 Furosemide 20 Mg/2 Ml Vial IVPUSH BID@0900,1800 ENA Protocol Ceftriaxone Sodium 1 gm/ 50 mls @ 100 mls/hr 06/01/20 07:00 06/03/20 07:39 Sodium Chloride IV Infused Q24H ENA Infusion Amiodarone HCl 900 mg/ Sodium 518 mls @ 34.533 mls/hr 06/02/20 15:30 06/03/20 06:35 Chloride IVCONT Not Given .Q15H1M ENA Protocol 1 MG/MIN Insulin Glargine 15 unit 06/02/20 09:00 06/03/20 08:40 Insulin Glargine,Hum.Rec.Anlog 100 Unit/Ml 10 Ml Vial SUBCUT 15 unit DAILY ENA Administration Insulin Human Lispro 0 unit 06/01/20 07:30 06/03/20 08:39 Insulin Lispro 100 Unit/Ml 3 Ml Vial SUBCUT 10 unit QIDACHS ENA Administration Protocol Insulin Human Lispro 6 unit 06/01/20 09:08 06/03/20 08:41 Insulin Lispro 100 Unit/Ml 3 Ml Vial SUBCUT Not Given TIDAC [facility] Metoprolol Succinate 100 mg 06/01/20 09:08 06/03/20 08:42 Metoprolol Succinate Er 100 Mg Tab.Er.24h PO 100 mg DAILY [facility] Administration Protocol Omeprazole 20 mg 06/01/20 09:08 06/03/20 06:20 Omeprazole 20 Mg Capsule.Dr PO Not Given BID@0630,1630 [facility] Rivaroxaban 20 mg 06/01/20 09:08 06/02/20 16:34 Rivaroxaban 20 Mg Tablet PO 20 mg DAILY@1700 [facility] Administration Spironolactone 25 mg 06/01/20 09:08 06/03/20 08:42 Spironolactone 25 Mg Tablet PO 25 mg DAILY [facility] Administration Protocol Tramadol HCl 50 mg 06/01/20 09:08 Tramadol Hcl 50 Mg Tablet PO DAILY PRN pain Home Medications Medication Instructions Recorded Confirmed Last Taken Type amiodarone 100 mg PO DAILY 06/01/20 06/01/20 Unknown History hydralazine 1 tab PO BID 06/01/20 06/01/20 Unknown History insulin glargine U-300 conc 13 unit SUBCUT QAM 06/01/20 06/01/20 Unknown History [Touty SoloStar U-300 Insulin] insulin lispro [Humalog KwikPen 6 unit SUBCUT TID 06/01/20 06/01/20 Unknown History Insulin] levothyroxine 1 tab PO DAILY 06/01/20 06/01/20 Unknown History losartan 50 mg PO DAILY 06/01/20 06/01/20 Unknown History metoprolol succinate 1 tab PO DAILY 06/01/20 06/01/20 Unknown History omeprazole 1 cap PO BID 06/01/20 06/01/20 Unknown History pen needle, diabetic [BD Eveline 2nd 06/01/20 06/01/20 Unknown History Gen Pen Needle] rivaroxaban [Xarelto] 1 tab PO DAILY 06/01/20 06/01/20 Unknown History simvastatin 1 tab PO BEDTIME 06/01/20 06/01/20 Unknown History spironolactone 1 tab PO DAILY 06/01/20 06/01/20 Unknown History tramadol 1 tab PO DAILY PRN 06/01/20 06/01/20 Unknown History travoprost drp OPHTHALMIC (EYE) 06/01/20 Unknown History Exam Exam Date and Time: June 03, 2020 1100 Height,Weight and Vital Signs: Height 5 ft Weight 65.771 kg Last Vital Signs Temp 98 F 06/03/20 10:44 Pulse 104 H 06/03/20 10:44 Resp 18 06/03/20 10:44 BP 141/63 H 06/03/20 10:44 Pulse Ox 99 06/03/20 07:26 Pertinent Lab Results Pertinent Lab Results: Laboratory Tests 06/01/20 06/01/20 06/01/20 01:04 01:16 01:16 WBC 15.0 H RBC 3.25 L Hgb 10.0 L Hct 29.8 L MCV 91.7 MCH 30.8 MCHC 33.6 RDW 13.6 Plt Count 264 MPV 10.2 Immature Gran % (Auto) 0.8 H Neut % (Auto) 75.9 H Lymph % (Auto) 8.5 L [place] % (Auto) 14.1 H Eos % (Auto) 0.4 Baso % (Auto) 0.3 Lymph # (Auto) 1.3 [place] # (Auto) 2.1 H Eos # (Auto) 0.1 Baso # (Auto) 0.1 Abs Immat Gran (auto) 0.12 H Absolute Neuts (auto) 11.4 H Absolute Nucleated RBC 0.000 Nucleated RBC % (auto) 0.0 Smear Tech's Comments VERIFIED Sodium 126 L Potassium 5.2 H Chloride 93 L Carbon Dioxide 18 L Anion Gap 20 BUN 41 H Creatinine 1.31 Estim Creat Clear Calc 23.3 Estimated GFR 39 POC Glucose Random Glucose 334 H D Osmolality Lactic Acid Calcium 8.3 L D Total Bilirubin 0.4 Direct Bilirubin 0.2 AST 39 H D ALT 37 H Alkaline Phosphatase 112 D Troponin I High Sens B-Natriuretic Peptide Total Protein 6.7 Albumin 3.9 Urine Color Urine Appearance Urine pH Ur Specific [place] Urine Protein Urine Glucose (UA) Urine Ketones Urine Blood Urine Nitrite Ur Leukocyte Esterase Urine RBC Urine WBC Urine WBC Clumps Ur Squamous Epith Cells Urine Bacteria Urine Mucus Coronavirus (PCR) NEGATIVE Influenza Type A (PCR) NEGATIVE Influenza Type B (PCR) NEGATIVE RSV RNA Qual (PCR) NEGATIVE 06/01/20 06/01/20 06/01/20 01:16 01:16 01:16 WBC RBC Hgb Hct MCV MCH MCHC RDW Plt Count MPV Immature Gran % (Auto) Neut % (Auto) Lymph % (Auto) [place] % (Auto) Eos % (Auto) Baso % (Auto) Lymph # (Auto) [place] # (Auto) Eos # (Auto) Baso # (Auto) Abs Immat Gran (auto) Absolute Neuts (auto) Absolute Nucleated RBC Nucleated RBC % (auto) Smear Tech's Comments Sodium Potassium Chloride Carbon Dioxide Anion Gap BUN Creatinine Estim Creat Clear Calc Estimated GFR POC Glucose Random Glucose Osmolality 286 Lactic Acid 0.9 Calcium Total Bilirubin Direct Bilirubin AST ALT Alkaline Phosphatase Troponin I High Sens 55.7 H B-Natriuretic Peptide 413 H Total Protein Albumin Urine Color Urine Appearance Urine pH Ur Specific [place] Urine Protein Urine Glucose (UA) Urine Ketones Urine Blood Urine Nitrite Ur Leukocyte Esterase Urine RBC Urine WBC Urine WBC Clumps Ur Squamous Epith Cells Urine Bacteria Urine Mucus Coronavirus (PCR) Influenza Type A (PCR) Influenza Type B (PCR) RSV RNA Qual (PCR) 06/01/20 06/01/20 06/01/20 01:29 06:26 06:26 WBC RBC Hgb Hct MCV MCH MCHC RDW Plt Count MPV Immature Gran % (Auto) Neut % (Auto) Lymph % (Auto) [place] % (Auto) Eos % (Auto) Baso % (Auto) Lymph # (Auto) [place] # (Auto) Eos # (Auto) Baso # (Auto) Abs Immat Gran (auto) Absolute Neuts (auto) Absolute Nucleated RBC Nucleated RBC % (auto) Smear Tech's Comments Sodium 129 L Potassium 4.5 Chloride 94 L Carbon Dioxide 21 L Anion Gap 19 BUN 38 H Creatinine 1.28 Estim Creat Clear Calc 23.9 Estimated GFR 40 POC Glucose Random Glucose 283 H Osmolality Lactic Acid Calcium 8.4 Total Bilirubin Direct Bilirubin AST ALT Alkaline Phosphatase Troponin I High Sens 72.3 H B-Natriuretic Peptide Total Protein Albumin Urine Color YELLOW Urine Appearance HAZY Urine pH 5.5 Ur Specific [place] 1.025 Urine Protein 2+ H Urine Glucose (UA) >=1000 H Urine Ketones NEG Urine Blood TRACE Urine Nitrite NEG Ur Leukocyte Esterase TRACE H Urine RBC 0-2 Urine WBC 15-29 H Urine WBC Clumps NOTED Ur Squamous Epith Cells TRACE Urine Bacteria 1+ Urine Mucus TRACE Coronavirus (PCR) Influenza Type A (PCR) Influenza Type B (PCR) RSV RNA Qual (PCR) 06/01/20 06/01/20 06/01/20 07:13 09:10 11:25 WBC RBC Hgb Hct MCV MCH MCHC RDW Plt Count MPV Immature Gran % (Auto) Neut % (Auto) Lymph % (Auto) [place] % (Auto) Eos % (Auto) Baso % (Auto) Lymph # (Auto) [place] # (Auto) Eos # (Auto) Baso # (Auto) Abs Immat Gran (auto) Absolute Neuts (auto) Absolute Nucleated RBC Nucleated RBC % (auto) Smear Tech's Comments Sodium Potassium Chloride Carbon Dioxide Anion Gap BUN Creatinine Estim Creat Clear Calc Estimated GFR POC Glucose 319 H 405 H* 295 H Random Glucose Osmolality Lactic Acid Calcium Total Bilirubin Direct Bilirubin AST ALT Alkaline Phosphatase Troponin I High Sens B-Natriuretic Peptide Total Protein Albumin Urine Color Urine Appearance Urine pH Ur Specific [place] Urine Protein Urine Glucose (UA) Urine Ketones Urine Blood Urine Nitrite Ur Leukocyte Esterase Urine RBC Urine WBC Urine WBC Clumps Ur Squamous Epith Cells Urine Bacteria Urine Mucus Coronavirus (PCR) Influenza Type A (PCR) Influenza Type B (PCR) RSV RNA Qual (PCR) 06/01/20 06/01/20 06/02/20 16:49 20:34 07:28 WBC RBC Hgb Hct MCV MCH MCHC RDW Plt Count MPV Immature Gran % (Auto) Neut % (Auto) Lymph % (Auto) [place] % (Auto) Eos % (Auto) Baso % (Auto) Lymph # (Auto) [place] # (Auto) Eos # (Auto) Baso # (Auto) Abs Immat Gran (auto) Absolute Neuts (auto) Absolute Nucleated RBC Nucleated RBC % (auto) Smear Tech's Comments Sodium Potassium Chloride Carbon Dioxide Anion Gap BUN Creatinine Estim Creat Clear Calc Estimated GFR POC Glucose 135 H 242 H 384 H* Random Glucose Osmolality Lactic Acid Calcium Total Bilirubin Direct Bilirubin AST ALT Alkaline Phosphatase Troponin I High Sens B-Natriuretic Peptide Total Protein Albumin Urine Color Urine Appearance Urine pH Ur Specific [place] Urine Protein Urine Glucose (UA) Urine Ketones Urine Blood Urine Nitrite Ur Leukocyte Esterase Urine RBC Urine WBC Urine WBC Clumps Ur Squamous Epith Cells Urine Bacteria Urine Mucus Coronavirus (PCR) Influenza Type A (PCR) Influenza Type B (PCR) RSV RNA Qual (PCR) 06/02/20 06/02/20 06/02/20 08:17 11:11 11:37 WBC 9.9 RBC 3.23 L Hgb 10.1 L Hct 29.9 L MCV 92.6 MCH 31.3 MCHC 33.8 RDW 14.2 Plt Count 211 MPV 10.9 Immature Gran % (Auto) 0.7 H Neut % (Auto) 76.4 H Lymph % (Auto) 7.8 L [place] % (Auto) 14.3 H Eos % (Auto) 0.3 Baso % (Auto) 0.5 Lymph # (Auto) 0.8 L [place] # (Auto) 1.4 H Eos # (Auto) 0.0 Baso # (Auto) 0.1 Abs Immat Gran (auto) 0.07 H Absolute Neuts (auto) 7.5 Absolute Nucleated RBC 0.000 Nucleated RBC % (auto) 0.0 Smear Tech's Comments Sodium 128 L Potassium 4.8 Chloride 94 L Carbon Dioxide 18 L Anion Gap 21 H BUN 48 H Creatinine 1.62 H Estim Creat Clear Calc 18.9 Estimated GFR 30 POC Glucose 263 H Random Glucose 423 H* Osmolality Lactic Acid Calcium 8.1 L Total Bilirubin Direct Bilirubin AST ALT Alkaline Phosphatase Troponin I High Sens B-Natriuretic Peptide Total Protein Albumin Urine Color Urine Appearance Urine pH Ur Specific [place] Urine Protein Urine Glucose (UA) Urine Ketones Urine Blood Urine Nitrite Ur Leukocyte Esterase Urine RBC Urine WBC Urine WBC Clumps Ur Squamous Epith Cells Urine Bacteria Urine Mucus Coronavirus (PCR) Influenza Type A (PCR) Influenza Type B (PCR) RSV RNA Qual (PCR) 06/02/20 06/02/20 06/02/20 11:37 16:06 19:37 WBC RBC Hgb Hct MCV MCH MCHC RDW Plt Count MPV Immature Gran % (Auto) Neut % (Auto) Lymph % (Auto) [place] % (Auto) Eos % (Auto) Baso % (Auto) Lymph # (Auto) [place] # (Auto) Eos # (Auto) Baso # (Auto) Abs Immat Gran (auto) Absolute Neuts (auto) Absolute Nucleated RBC Nucleated RBC % (auto) Smear Tech's Comments Sodium Potassium Chloride Carbon Dioxide Anion Gap BUN Creatinine Estim Creat Clear Calc Estimated GFR POC Glucose 197 H 190 H Random Glucose Osmolality Lactic Acid Calcium Total Bilirubin Direct Bilirubin AST ALT Alkaline Phosphatase Troponin I High Sens 171.9 H D B-Natriuretic Peptide Total Protein Albumin Urine Color Urine Appearance Urine pH Ur Specific [place] Urine Protein Urine Glucose (UA) Urine Ketones Urine Blood Urine Nitrite Ur Leukocyte Esterase Urine RBC Urine WBC Urine WBC Clumps Ur Squamous Epith Cells Urine Bacteria Urine Mucus Coronavirus (PCR) Influenza Type A (PCR) Influenza Type B (PCR) RSV RNA Qual (PCR) 06/03/20 06/03/20 06/03/20 08:12 08:42 10:18 WBC RBC Hgb Hct MCV MCH MCHC RDW Plt Count MPV Immature Gran % (Auto) Neut % (Auto) Lymph % (Auto) [place] % (Auto) Eos % (Auto) Baso % (Auto) Lymph # (Auto) [place] # (Auto) Eos # (Auto) Baso # (Auto) Abs Immat Gran (auto) Absolute Neuts (auto) Absolute Nucleated RBC Nucleated RBC % (auto) Smear Tech's Comments Sodium 132 L Potassium 5.0 Chloride 98 Carbon Dioxide 24 Anion Gap 15 BUN 46 H Creatinine 1.26 Estim Creat Clear Calc 28.4 Estimated GFR 41 POC Glucose 393 H* 274 H Random Glucose 451 H* Osmolality Lactic Acid Calcium 7.9 L Total Bilirubin Direct Bilirubin AST ALT Alkaline Phosphatase Troponin I High Sens B-Natriuretic Peptide Total Protein Albumin Urine Color Urine Appearance Urine pH Ur Specific [place] Urine Protein Urine Glucose (UA) Urine Ketones Urine Blood Urine Nitrite Ur Leukocyte Esterase Urine RBC Urine WBC Urine WBC Clumps Ur Squamous Epith Cells Urine Bacteria Urine Mucus Coronavirus (PCR) Influenza Type A (PCR) Influenza Type B (PCR) RSV RNA Qual (PCR) Airway Mallampati Class: III TM Dist: >3cm Heart: irregular Lungs: CTA
--- NOTE | 2020-06-03 11:02 | MHC.SHP ---
Pre-Procedural Eval Section A The patient is an INPATIENT: Yes Changes since office visit: Yes New Medical Problems, Yes Changes in Medication and Yes Patient answered all questions; No Cold of Flu in the past 2 weeks The History & Physical has been completed within 30 days and I have reviewed it.: Yes Section B Chief Complaint: CHF Exacerbation, UTI, HYPONATREMIA Allergies: Allergies Allergy/AdvReac Type Severity Reaction Status Date / Time codeine Allergy Intermediate TACHYCARDIA Verified 05/19/20 10:12 nitrofurantoin [Macrobid] Allergy Unknown confusion Verified 05/19/20 10:12 pravastatin Allergy Unknown Unknown Verified 05/19/20 10:12 rosuvastatin [Crestor] Allergy Unknown Unknown Verified 05/19/20 10:12 Sulfa (Sulfonamide Allergy Unknown unknown Verified 05/19/20 10:12 Antibiotics) sulfamethoxazole Allergy Unknown Unknown Verified 05/19/20 10:12 [From Bactrim] trimethoprim [From Bactrim] Allergy Unknown Unknown Verified 05/19/20 10:12 amlodipine AdvReac Intermediate leg Verified 05/19/20 10:12 swelling Plan I have reviewed the history and physical and performed a pertinent physical examination on my patient. No changes have occurred unless specified.
[2020-06-03 11:05] LABS: Glucose, Whole Blood 226 mg/dL (60-115)
--- NOTE | 2020-06-03 11:08 | PC.NURSE ---
NEW IV #[address] MATTEO CARNEY NOTIFIED THAT PATIENT'S LAST DOSE OF XARELTO 20 MG WAS YESTERDAY 06/02/20 AT 1634., DR. CARNEY STATED THAT WAS OKAY. GORDON EMPTIED WITH 500 ML OUT.
--- NOTE | 2020-06-03 11:57 | ECG_ITS ---
Test Reason : S/P CARDIOVERSION Blood Pressure : / mmHG Vent. Rate : 077 BPM Atrial Rate : 077 BPM P-R Int : 140 ms QRS Dur : 094 ms QT Int : 380 ms P-R-T Axes : -19 -42 038 degrees QTc Int : 430 ms Normal sinus rhythm Left axis deviation Abnormal ECG When compared with ECG of 02-JUN-2020 08:47, Sinus rhythm has replaced Atrial fibrillation ST no longer depressed in Lateral leads Referred By: Neil Jeong Electronically Signed By:NEIL JEOGN MD
--- NOTE | 2020-06-03 11:57 | HO.CARDIVERS ---
Cardioversion Procedure Note Cardioversion Date of Procedure: 06/03/2020 Ordering Provider: Myself Performing Provider: Myself Indication for Procedure: Poorly tolerated recurrent atrial fibrillation, persistent despite IV amiodarone therapy. Pre-Op Diagnosis: Atrial fibrillation, heart failure, hypertension Post-Op Diagnosis: Sinus rhythm Performed with Transesophageal Echo: No History: See cardiology consultation for details Consent: Verbal and Written consent was obtained from the patient before starting and confirming use of oral anticoagulation. The patient and her daughter Yue were made aware of the risk of procedure including benefits, alternatives and 2nd opinion. Procedure: After consent obtained, cardioversion pads were attached AP and the patient was sedated by the anesthesia team. Once adequate sedation achieved, patient was given 200 joules of biphasic synchronized energy in AP configuration. Complications: None Impression: Converted successfully to sinus rhythm Recommendations: 1. Reload with oral amiodarone 200 mg b.i.d. for 1 month starting tonight. 2. Continue IV amiodarone till 1st dose of oral amiodarone 3. Continue full oral anticoagulation with Xarelto 4. Stat EKG.
--- NOTE | 2020-06-03 11:59 | PM.EVENT ---
Event Note Date of Service: 06/03/20 Event Note: Patient converted successfully to sinus rhythm with cardioversion. Start amiodarone 200 mg b.i.d. starting this evening, continue IV amiodarone until then
--- NOTE | 2020-06-03 12:51 | HO.POSTANES ---
Post Anesthesia Evaluation Post Anesthesia Evaluation Vital Signs: Vital Signs Temp Pulse Resp BP Pulse Ox 06/03/20 12:34 98.3 F 77 16 124/54 L 95 06/03/20 12:19 76 16 121/48 L 96 06/03/20 12:14 76 16 123/48 L 95 06/03/20 12:09 74 16 128/49 L 99 06/03/20 12:04 98.3 F 72 14 126/48 L 99 06/03/20 10:44 98 F 104 H 18 141/63 H 06/03/20 08:42 117 H 140/75 H 06/03/20 07:26 98.2 F 117 H 17 140/75 H 99 06/03/20 06:35 112 H 154/72 H 06/03/20 03:17 98.6 F 118 H 18 154/72 H 99 Anesthesia: General Mental Status: Awake Pain Control: Satisfactory Nausea/Vomiting: None Hydration: Adequate Anesthesia-Related Issues: No Anes. Related Issues
[2020-06-03 13:11] LABS: Glucose, Whole Blood 199 mg/dL (60-115)
[2020-06-03] MEDS: Furosemide 20 MG/2 ML VIAL IVPUSH ×2 (13:33→17:33)
--- NOTE | 2020-06-03 13:33 | HO.PM.IMPN ---
Subjective Subjective Date of Service: 06/03/20 Interval History: Patient seen and examined at bedside Patient Still reporting shortness of breath Review of Systems Constitutional : No Weight loss, No Fever, No Chills, No Night Sweats, No Fatigue, No Malaise Cardiovascular : dyspnea, no lower extremity edema Respiratory : No Cough, No Sputum, No Wheezing, No Smoke Exposure Gastrointestinal : Complaining of Nausea, No Vomiting, No Diarrhea, No Constipation, No abdominal Pain, No Hematochezia, No Melena Genitourinary : no irregular bleeding, No Dysuria, No Urinary Frequency, No Hematuria, No Urinary Incontinence, No Urgency, No Flank Pain, No Urinary Flow Changes, No Hesitancy Musculoskeletal : No joint pain, No Myalgias, No Joint Swelling Skin : No Skin Lesions, No rash Neuro : No Weakness, No Numbness, No Paresthesias, No Loss of Consciousness, reported Dizziness, No Headache Psych : No Anxiety/Panic, No Depression, No SI/HI/AH/VH, No Social Issues, Heme/Lymph: No Bruising, No Bleeding,No Lymphadenopathy Physical Exam Vital Signs: Vital Signs: Last Vital Signs Temp 98.3 F 06/03/20 12:34 Pulse 69 06/03/20 12:57 Resp 16 06/03/20 12:34 BP 131/48 L 06/03/20 12:57 Pulse Ox 95 06/03/20 12:34 Body Mass Index 28.3 Const: General: cooperative and no acute distress Orientation/consciousness: patient oriented x3 Eyes: General: appearance normal, both eyes and all related structures Pupils: Equal, round and reactive pupils present Resp: Effort & Inspection: normal respiratory effort and able to speak in complete sentences Auscultation: rhonchi Cardio: Rate: tachycardic Rhythm: abnormal rhythm GI: Palpation (GI): Soft to palpation Auscultation: normal bowel sounds Skin: General skin exam: no rashes or lesions noted Neuro: General: patient oriented x3 Cranial nerves: Yes Equal, round and reactive pupils present Cognition (Neuro): normal cognition Extrem: General: Yes normal to inspection and Yes no pedal edema Objective Data Current Medications Generic Name Dose Route Start Last Admin Trade Name Freq PRN Reason Stop Dose Admin Atorvastatin Calcium 10 mg 06/01/20 21:00 06/02/20 20:32 Atorvastatin Calcium 10 Mg Tablet PO 10 mg BEDTIME ENA Administration Furosemide 20 mg 06/03/20 09:45 06/03/20 13:33 Furosemide 20 Mg/2 Ml Vial IVPUSH 20 mg BID@0900,1800 [facility] Administration Protocol Ceftriaxone Sodium 1 gm/ 50 mls @ 100 mls/hr 06/01/20 07:00 06/03/20 07:39 Sodium Chloride IV Infused Q24H [facility] Infusion Amiodarone HCl 900 mg/ Sodium 518 mls @ 34.533 mls/hr 06/02/20 15:30 06/03/20 06:35 Chloride IVCONT Not Given .Q15H1M [facility] Protocol 1 MG/MIN Insulin Glargine 15 unit 06/02/20 09:00 06/03/20 08:40 Insulin Glargine,Hum.Rec.Anlog 100 Unit/Ml 10 Ml Vial SUBCUT 15 unit DAILY [facility] Administration Insulin Human Lispro 0 unit 06/01/20 07:30 06/03/20 13:31 Insulin Lispro 100 Unit/Ml 3 Ml Vial SUBCUT 2 unit QIDACHS [facility] Administration Protocol Insulin Human Lispro 6 unit 06/01/20 09:08 06/03/20 13:32 Insulin Lispro 100 Unit/Ml 3 Ml Vial SUBCUT Not Given TIDAC [facility] Metoprolol Succinate 100 mg 06/01/20 09:08 06/03/20 08:42 Metoprolol Succinate Er 100 Mg Tab.Er.24h PO 100 mg DAILY [facility] Administration Protocol Omeprazole 20 mg 06/01/20 09:08 06/03/20 06:20 Omeprazole 20 Mg Capsule.Dr PO Not Given BID@0630,1630 [facility] Rivaroxaban 20 mg 06/01/20 09:08 06/02/20 16:34 Rivaroxaban 20 Mg Tablet PO 20 mg DAILY@1700 [facility] Administration Spironolactone 25 mg 06/01/20 09:08 06/03/20 08:42 Spironolactone 25 Mg Tablet PO 25 mg DAILY [facility] Administration Protocol Tramadol HCl 50 mg 06/01/20 09:08 Tramadol Hcl 50 Mg Tablet PO DAILY PRN pain Labs CBC & Chem 7: 06/02/20 11:37 06/03/20 08:42 Microbiology Microbiology Results: Microbiology 06/01/20 01:28 Urine clean catch - Clean Catch Midstream Urine Culture - Preliminary Gram negative karen 06/01/20 01:16 Blood - Venous Blood Culture - Preliminary No growth after 48 hours. 06/01/20 01:16 Blood - Venous Blood Culture - Preliminary No growth after 48 hours. Assessment and Plan (1) CHF exacerbation: Status: Acute (2) Acute hyponatremia: Status: Acute (3) Acute alteration in mental status: Status: Acute (4) UTI (urinary tract infection): Status: Acute (5) Elevated troponin: Status: Acute (6) Atrial fibrillation: Status: Acute (7) Hypertension: Status: Acute (8) Type 2 diabetes mellitus with hyperglycemia: Problem details: With retinopathy Status: Acute Assessment and Plan: This is an 84-year-old female with past medical history of hypertension, diabetes, says diastolic heart failure, who presents to the hospital with complaints of shortness of breath Dyspnea likely secondary to Acute on chronic Diastolic CHF Chest x-rays demonstrating pulmonary congestion, has elevated BNP, no evidence of pneumonia on chest x-ray, COVID-19 PCR negative Echo cardiogram done from May 2019 shows ejection fraction of 60-65% with grade 2 diastolic dysfunction Continue IV Lasix low-dose Cardiology following - strict I&O, daily weight, low-sodium diet Continue telemetry monitoring Atrial fib with RVR likely contributed to CHF Started on amiodarone drip yesterday Still in AFib plan for cardioversion today converted to sinus now Resume Lopressor as blood pressure improved Continue Xarelto Hyponatremia improving sodium around 135 nephrology following Toxic metabolic encephalopathy improving - secondary to UTI continue rocephin follow up urine culture Mildly elevated troponin likely demand mediated no chest pain Cardiology following Hypertensive crisis on admission Blood pressure dropped yesterday improving now Hold losartan and hydralazine Diabetes mellitus continue lantus and SSI monitor BG DVT prophylaxis: xarelto
--- NOTE | 2020-06-03 15:18 | PC.NURSE ---
Patient went for cardioversion today at 1020. patient returned around 1300. awake and with no complaints. NSR at this time. Cont 02/tele monitoring. Denies CP. amioderone infusion to stay running. PO dose ordered for later today. Dr Lam aware of high BS this morning. 393@0700. Lantus and Humalog to be given despite NPO status per MD order. Repeat POC prior to cardioversion 274.
[2020-06-03 16:14] LABS: Glucose, Whole Blood 150 mg/dL (60-115)
[2020-06-03] MEDS: Rivaroxaban 20 MG TABLET PO (17:33)
[2020-06-03] MEDS: Omeprazole 20 MG CAPSULE.DR PO (17:33)
[2020-06-03] MEDS: Amiodarone HCL 900 MG in 0.9 % Sodium Chloride 500 ML 17.27 MG IVCONT (18:05)
[2020-06-03 20:14] LABS: Glucose, Whole Blood 328 mg/dL (60-115)
[2020-06-03] MEDS: Atorvastatin Calcium 10 MG TABLET PO (20:18)
[2020-06-03] MEDS: Amiodarone HCL 200 MG TABLET PO (20:19)
--- NOTE | 2020-06-03 21:55 | PC.NURSE ---
pt very anxious, c/o discomfort with smith cath, smith cath removed by RN at 21:50, due to void at 4 am
--- NOTE | 2020-06-03 21:59 | PC.NURSE ---
patient was able to get up from the bed with 1 assist, made few steps with slow steady gait
--- NOTE | 2020-06-03 22:16 | PM.PNNEP ---
Subjective Subjective Date of Service: 06/03/20 Principal diagnosis: Afib RVR, CHF Interval history: Patient seen and examined at bedside Feels better No CP Physical Exam Vital Signs: Vital Signs: Last Vital Signs Temp 97.9 F 06/03/20 19:02 Pulse 80 06/03/20 20:02 Resp 18 06/03/20 19:02 BP 173/56 H 06/03/20 19:02 Pulse Ox 96 06/03/20 19:02 Body Mass Index 28.3 Const: General: cooperative, comfortable, no acute distress, alert, awake and confusion Nutritional Appearance: thin Orientation/consciousness: patient oriented x3 and confusion HENMT: Head: Yes normocephalic and Yes atraumatic Eyes: General: appearance normal, both eyes and all related structures Pupils: Equal, round and reactive pupils present Neck: Neck: Yes trachea midline, Yes supple and Yes no JVD Resp: Effort & Inspection: normal respiratory effort, able to speak in complete sentences and decreased respiratory effort Auscultation: rales and rhonchi Cardio: Rate: regular rate and tachycardic Rhythm: regular rhythm and abnormal rhythm irregularly irregular Heart sounds: S1 normal heart sound present and S2 normal heart sound present GI: Palpation (GI): Soft to palpation Auscultation: normal bowel sounds Skin: General skin exam: no rashes or lesions noted Neuro: General: patient oriented x3 and confusion Cranial nerves: Yes Equal, round and reactive pupils present Cognition (Neuro): normal cognition Extrem: General: Yes normal to inspection, Yes no clubbing, cyanosis or edema and Yes no pedal edema Psych: Appearance: grossly normal Objective Data Labs CBC & Chem 7: 06/02/20 11:37 06/03/20 08:42 Labs: Laboratory Results - last 24 hr 06/03/20 06/03/20 06/03/20 08:12 08:42 10:18 Sodium 132 L Potassium 5.0 Chloride 98 Carbon Dioxide 24 Anion Gap 15 BUN 46 H Creatinine 1.26 Estim Creat Clear Calc 28.4 Estimated GFR 41 POC Glucose 393 H* 274 H Random Glucose 451 H* Calcium 7.9 L 06/03/20 06/03/20 06/03/20 11:01 13:07 16:09 Sodium Potassium Chloride Carbon Dioxide Anion Gap BUN Creatinine Estim Creat Clear Calc Estimated GFR POC Glucose 226 H 199 H 150 H Random Glucose Calcium 06/03/20 20:08 Sodium Potassium Chloride Carbon Dioxide Anion Gap BUN Creatinine Estim Creat Clear Calc Estimated GFR POC Glucose 328 H Random Glucose Calcium Microbiology Microbiology Results: Microbiology 06/01/20 01:28 Urine clean catch - Clean Catch Midstream Urine Culture - Preliminary Gram negative karen 06/01/20 01:16 Blood - Venous Blood Culture - Preliminary No growth after 48 hours. 06/01/20 01:16 Blood - Venous Blood Culture - Preliminary No growth after 48 hours. Assessment & Plan Assessment and plan (1) CHF exacerbation: Status: Acute (2) Acute hyponatremia: Status: Acute (3) Acute alteration in mental status: Status: Acute (4) UTI (urinary tract infection): Status: Acute (5) Elevated troponin: Status: Acute (6) Atrial fibrillation: Problem details: Cardioversion May 2020 Status: Acute (7) Hypertension: Status: Acute (8) Type 2 diabetes mellitus with hyperglycemia: Problem details: With retinopathy Status: Acute Assessment and Plan: 1. 84-year-old female with hyponatremia. Hyponatremia in this patient likely secondary to hyperglycemia and increased free water in the setting of congestive heart failure. She was not on any medication, which can cause hyponatremia. She does have baseline hyponatremia as well. Her sodium level is improved. 2. New JAZ - due to Hypotension/ Diuresis / Hyperglycemia with over diuresis- Resolved 2. Chronic kidney disease stage 3 and I doubt the patient has an acute component of prerenal insufficiency. 3. Congestive heart failure exacerbation. 4. Urinary tract infection. RECOMMENDATIONS: diuretics as per medical team F/u renal func Nataliia NA is better I recommend controlling the blood sugar and trying to keep it around 150 to prevent osmotic diuresis and low sodium. F/u Bp and adjust BP meds Time Spent With Patient Time: Total time spent is greater than 50% in coordination of care (as documented) at patient's floor/unit and/or counseling patient: Procedures Date of Service Date of Service: 06/03/20
--- NOTE | 2020-06-03 22:54 | PC.NURSE ---
pt medicated with Amiodorone PO, Amiodorone drip was stopped as per DR Lam instructions, pt remaines in normal sinus rhythm,
[2020-06-04] VITALS (11 sets, daily range): BP systolic 142–200; BP diastolic 49–78; PULSE 74–82; RESP 12–18; TEMP 36.2–37.5; O2SAT 92–98; BMI 26.7
[2020-06-04] MEDS: cefTRIAXone sodium 1 GM in 0.9 % Sodium Chloride 50 ML IV (05:32)
[2020-06-04] MEDS: Omeprazole 20 MG CAPSULE.DR PO ×2 (05:32→17:41)
[2020-06-04] MEDS: Spironolactone 25 MG TABLET PO (07:36)
[2020-06-04] MEDS: Amiodarone HCL 200 MG TABLET PO ×2 (07:36→21:37)
[2020-06-04] MEDS: Furosemide 20 MG/2 ML VIAL IVPUSH ×2 (07:36→17:41)
[2020-06-04] MEDS: Metoprolol Succinate ER 100 MG TAB.ER.24H PO (07:36)
[2020-06-04] MEDS: Insulin Glargine,Hum.rec.anlog 100 UNIT/ML 10 ML VIAL 15 UNIT SUBCUT (07:37)
[2020-06-04] MEDS: Insulin Lispro 100 UNIT/ML 3 ML VIAL SUBCUT ×3 (07:37→21:33)
[2020-06-04] MEDS: Insulin Lispro 100 UNIT/ML 3 ML VIAL 6 UNIT SUBCUT ×2 (07:37→12:04)
[2020-06-04 07:41] LABS: Anion Gap 22 (12-20); Blood Urea Nitrogen 34 mg/dL (9-16); Calcium 8.3 mg/dL (8.4-10.2); Carbon Dioxide 18 mmol/L (22-29); Chloride 99 mmol/L (96-108); Creatinine Clr Calc Pharmacy 29.9; Estimated Glomerular Filt Rate 44; Glucose Random 333 mg/dL (60-115); Potassium 5.5 mmol/L (3.3-5.1); Sodium 133 mmol/L (135-145)
[2020-06-04 08:00] LABS: Glucose, Whole Blood 348 mg/dL (60-115)
[2020-06-04] MEDS: Sodium Polystyrene Sulfon/Sorb 15 GM/60 ML ORAL.SUSP 30 GM PO (08:11)
[2020-06-04] MEDS: traMADoL HCL 50 MG TABLET PO (11:04)
[2020-06-04] MEDS: hydrALAZINE HCl 25 MG TABLET PO ×2 (11:04→21:37)
[2020-06-04 12:06] LABS: Glucose, Whole Blood 179 mg/dL (60-115)
--- NOTE | 2020-06-04 12:47 | PM.PNCARD ---
Subjective Subjective Date of Service: 06/04/20 <MONICA Plasencia - Last Filed: 06/04/20 13:07> 06/04/20 <Neil Jeong MD - Last Filed: 06/04/20 14:44> Principal diagnosis: Afib RVR, CHF <MONICA Plasencia - Last Filed: 06/04/20 13:07> Interval history: Cardiology follow up for afib, post CVR, CHF. Seen at 0915. Today she reports feeling well. She is noted to have confusion. Denies chest pains, sob, palpitations. Able to feed self breakfast. States she slept well. No physical complaints. Accuracy of her subjective assessment unclear due to dementia. <MONICA Plasencia - Last Filed: 06/04/20 13:07> Review of Systems Review of Systems as above <MONICA Plasencia - Last Filed: 06/04/20 13:07> Yes all other systems are reviewed and are negative <MONICA Plasencia - Last Filed: 06/04/20 13:07> Physical Exam Vital Signs: Last Vital Signs Temp 98.3 F 06/04/20 08:00 Pulse 79 06/04/20 08:00 Resp 17 06/04/20 08:00 BP 168/70 H 06/04/20 08:43 Pulse Ox 92 06/04/20 08:00 Body Mass Index 26.7 <MONICA Plasencia - Last Filed: 06/04/20 13:07> Const General: cooperative, no acute distress, alert and awake <MONICA Plasencia - Last Filed: 06/04/20 13:07> Neck Neck: Yes normal visual inspection and Yes no JVD <MONICA Plasencia - Last Filed: 06/04/20 13:07> Resp Effort & Inspection: normal respiratory effort, able to speak in complete sentences and not labored <MONICA Plasencia Last Filed: 06/04/20 13:07> Auscultation: clear to auscultation bilaterally (fine rales noted in left base, right base clearer), no rhonchi and no wheezes <MONICA Plasencia Last Filed: 06/04/20 13:07> Cardio Palpation: normal PMI <KAROLINA PlasenciaC - Last Filed: 06/04/20 13:07> Rate: regular rate <KAROLINA PlasenciaC - Last Filed: 06/04/20 13:07> Rhythm: regular rhythm <KAROLINA PlasenciaC - Last Filed: 06/04/20 13:07> Heart sounds: S1 normal heart sound present and S2 normal heart sound present <KAROLINA PlasenciaC - Last Filed: 06/04/20 13:07> Peripheral pulses: Peripheral pulses 2+ throughout <KAROLINA PlasenciaC - Last Filed: 06/04/20 13:07> GI Inspection: Yes normal to inspection <KAROLINA PlasenciaC - Last Filed: 06/04/20 13:07> Skin General skin exam: no rashes or lesions noted <MONICA Plasencia - Last Filed: 06/04/20 13:07> Extrem General: Yes normal to inspection and No edema <KAROLINA PlasenciaC - Last Filed: 06/04/20 13:07> Results Labs and Meds Result diagrams: : 06/02/20 11:37 06/04/20 05:41 <MONICA Plasencia - Last Filed: 06/04/20 13:07> Lab results: Laboratory Results - last 24 hr 06/03/20 06/03/20 06/03/20 13:07 16:09 20:08 Sodium Potassium Chloride Carbon Dioxide Anion Gap BUN Creatinine Estim Creat Clear Calc Estimated GFR POC Glucose 199 H 150 H 328 H Random Glucose Calcium 06/04/20 06/04/20 06/04/20 05:41 07:24 11:49 Sodium 133 L Potassium 5.5 H Chloride 99 Carbon Dioxide 18 L Anion Gap 22 H BUN 34 H Creatinine 1.17 Estim Creat Clear Calc 29.9 Estimated GFR 44 POC Glucose 348 H 179 H Random Glucose 333 H Calcium 8.3 L <Kerry Felix KAROLINAC - Last Filed: 06/04/20 13:07> Progress Note: A&P Assessment and plan (1) Atrial fibrillation: Problem details: Cardioversion May 2020 <MONICA Plasencia - Last Filed: 06/04/20 13:07> Status: Acute <MONICA Plasencia - Last Filed: 06/04/20 13:07> Assessment and Plan: Hx of afib with CVR 2015. Has been maintained on Amiodarone without known reoccurrence until now. Presented with sob, hypoxia. EKG/ Tele showing Afib RVR. Started on Amiodarone drip. Treated for acute HFpEF. Echo shows EF 60-65%, grade II diastolic dysfunction, mod LA dilation, mod increase RVSP. Had been doing well with rhythm control and will pursue the same. Underwent a Cardioversion yesterday with Dr Jeong with successful conversion back to SR. She was started on Amiodarone 200mg bid which will be continued for 1 mo - then dose will be reduced to 200mg daily. Tele today shows ongoing SR, rates 70s. Ongoing tele monitoring. Continue Metoprolol, Amiodarone for rate/ rhythm control, and Xarelto for anticoagulation. <MONICA Plasencia - Last Filed: 06/04/20 13:07> Atrial fibrillation status post cardioversion. She has done well in the past with maintenance of rhythm. Hopefully in the future with continue rhythm management she will do well with reduction hospitalization for heart failure as well as feeling well. Continue amiodarone loading 200 mg b.i.d. for 1 month followed by 200 mg daily. Continue full oral anticoagulation. Will follow up in the clinic in 4 weeks time after Holter monitor. <Neil Jeong MD - Last Filed: 06/04/20 14:44> (2) CHF exacerbation: Status: Acute <MONICA Plasencia - Last Filed: 06/04/20 13:07> Assessment and Plan: Acute HFpEF with hypoxia this admit with elevated BNP in setting of afib RVR. Echo as above. Was treated with IV Lasix and continued on her usual home aldactone. Fluid balance remains +, which does not seem accurate. Clinical her HF is improving. She has some fine rales in left base. Sat 92% on RA. Her K was 5.5 today and Aldactone was stopped. Continue IV lasix today. Will check BNP in am. Plan to change to PO in am if appropriate. <MONICA Plasencia - Last Filed: 06/04/20 13:07> Heart failure which has improved. Continue p.o. diuretics. Strict I&Os Q shift. Heart failure education should be provided both the patient and her daughter. Continue rhythm management as above. Aldactone has been stopped due to high potassium level. Hydralazine has been start. Maintain blood pressure less than 130/84. Will sign of the case. Patient can be home when ready from medical perspective. <Neil Jeong MD - Last Filed: 06/04/20 14:44> (3) Hypertension: Status: Acute <MONICA Plasencia - Last Filed: 06/04/20 13:07> Assessment and Plan: BP elevated to as high as 200 systolic during night. This am 168/70. asymptomatic. Lisinopril and Aldactone stopped due to elevated K this am. Home Hydralazine has been on hold this admit. Will restart hydralazine at slightly higher dose than home dose, 25mg bid. Close BP monitoring. BMP in am. <MONICA Plasencia - Last Filed: 06/04/20 13:07> Fall Risk Details Current Medications: Current Medications Generic Name Dose Route Start Last Admin Trade Name Freq PRN Reason Stop Dose Admin Amiodarone HCl 200 mg 06/03/20 21:00 06/04/20 07:36 Amiodarone Hcl 200 Mg Tablet PO 200 mg BID ENA Administration Atorvastatin Calcium 10 mg 06/01/20 21:00 06/03/20 20:18 Atorvastatin Calcium 10 Mg Tablet PO 10 mg BEDTIME ENA Administration Furosemide 20 mg 06/03/20 09:45 06/04/20 07:36 Furosemide 20 Mg/2 Ml Vial IVPUSH 20 mg BID@0900,1800 [facility] Administration Protocol Hydralazine HCl 25 mg 06/04/20 10:00 06/04/20 11:04 Hydralazine Hcl 25 Mg Tablet PO 25 mg BID ENA Administration Protocol Ceftriaxone Sodium 1 gm/ 50 mls @ 100 mls/hr 06/01/20 07:00 06/04/20 06:18 Sodium Chloride IV Infused Q24H [facility] Infusion Insulin Glargine 20 unit 06/04/20 09:00 06/04/20 08:04 Insulin Glargine,Hum.Rec.Anlog 100 Unit/Ml 10 Ml Vial SUBCUT Not Given DAILY [facility] Insulin Human Lispro 0 unit 06/01/20 07:30 06/04/20 12:04 Insulin Lispro 100 Unit/Ml 3 Ml Vial SUBCUT 2 unit QIDACHS [facility] Administration Protocol Insulin Human Lispro 6 unit 06/01/20 09:08 06/04/20 12:04 Insulin Lispro 100 Unit/Ml 3 Ml Vial SUBCUT 6 unit TIDAC [facility] Administration Metoprolol Succinate 100 mg 06/01/20 09:08 06/04/20 07:36 Metoprolol Succinate Er 100 Mg Tab.Er.24h PO 100 mg DAILY [facility] Administration Protocol Omeprazole 20 mg 06/01/20 09:08 06/04/20 05:32 Omeprazole 20 Mg Capsule.Dr PO 20 mg BID@0630,1630 [facility] Administration Rivaroxaban 20 mg 06/01/20 09:08 06/03/20 17:33 Rivaroxaban 20 Mg Tablet PO 20 mg DAILY@1700 [facility] Administration Tramadol HCl 50 mg 06/01/20 09:08 06/04/20 11:04 Tramadol Hcl 50 Mg Tablet PO 50 mg DAILY PRN Administration pain <MONICA Plasencia - Last Filed: 06/04/20 13:07> Time Spent With Patient Time: Total time spent is greater than 50% in coordination of care (as documented) at patient's floor/unit and/or counseling patient: 18 <MONICA Plasencia - Last Filed: 06/04/20 13:07> Time with patient: 15 - 24 minutes <MONICA Plasencia - Last Filed: 06/04/20 13:07> Procedures Date of Service Date of Service: 06/04/20 <MONICA Plasencia - Last Filed: 06/04/20 13:07>
--- NOTE | 2020-06-04 13:22 | HO.POSTANES ---
Post Anesthesia Evaluation Post Anesthesia Evaluation Vital Signs: Vital Signs Temp Pulse Resp BP Pulse Ox 06/04/20 12:00 97.8 F 78 18 165/74 H 92 06/04/20 08:43 168/70 H 06/04/20 08:00 98.3 F 79 17 200/78 H 92 06/04/20 03:15 97.2 F 79 18 94 06/04/20 01:39 142/49 H Anesthesia: Monitored Mental Status: Awake Pain Control: Satisfactory Nausea/Vomiting: None Hydration: Adequate Anesthesia-Related Issues: No Anes. Related Issues
--- NOTE | 2020-06-04 15:25 | HO.PM.IMPN ---
Subjective Subjective Date of Service: 06/04/20 Interval History: Patient seen and examined at bedside Patient reported shortness of breath improving Patient was more confused today Review of Systems Constitutional : No Weight loss, No Fever, No Chills, No Night Sweats, No Fatigue, No Malaise Cardiovascular : dyspnea, no lower extremity edema Respiratory : No Cough, No Sputum, No Wheezing, No Smoke Exposure Gastrointestinal : Complaining of Nausea, No Vomiting, No Diarrhea, No Constipation, No abdominal Pain, No Hematochezia, No Melena Genitourinary : no irregular bleeding, No Dysuria, No Urinary Frequency, No Hematuria, No Urinary Incontinence, No Urgency, No Flank Pain, No Urinary Flow Changes, No Hesitancy Musculoskeletal : No joint pain, No Myalgias, No Joint Swelling Skin : No Skin Lesions, No rash Neuro : No Weakness, No Numbness, No Paresthesias, No Loss of Consciousness, reported Dizziness, No Headache Psych : No Anxiety/Panic, No Depression, No SI/HI/AH/VH, No Social Issues, Heme/Lymph: No Bruising, No Bleeding,No Lymphadenopathy Physical Exam Vital Signs: Vital Signs: Last Vital Signs Temp 97.8 F 06/04/20 12:00 Pulse 78 06/04/20 12:00 Resp 18 06/04/20 12:00 BP 165/74 H 06/04/20 12:00 Pulse Ox 98 06/04/20 13:00 Body Mass Index 26.7 Const: General: cooperative and no acute distress Orientation/consciousness: patient oriented x3 Eyes: General: appearance normal, both eyes and all related structures Pupils: Equal, round and reactive pupils present Resp: Effort & Inspection: normal respiratory effort and able to speak in complete sentences Auscultation: rhonchi Cardio: Rate: tachycardic Rhythm: abnormal rhythm GI: Palpation (GI): Soft to palpation Auscultation: normal bowel sounds Skin: General skin exam: no rashes or lesions noted Neuro: General: patient oriented x3 Cranial nerves: Yes Equal, round and reactive pupils present Cognition (Neuro): normal cognition Extrem: General: Yes normal to inspection and Yes no pedal edema Objective Data Current Medications Generic Name Dose Route Start Last Admin Trade Name Freq PRN Reason Stop Dose Admin Amiodarone HCl 200 mg 06/03/20 21:00 06/04/20 07:36 Amiodarone Hcl 200 Mg Tablet PO 200 mg BID [facility] Administration Atorvastatin Calcium 10 mg 06/01/20 21:00 06/03/20 20:18 Atorvastatin Calcium 10 Mg Tablet PO 10 mg BEDTIME [facility] Administration Furosemide 20 mg 06/03/20 09:45 06/04/20 07:36 Furosemide 20 Mg/2 Ml Vial IVPUSH 20 mg BID@0900,1800 [facility] Administration Protocol Hydralazine HCl 25 mg 06/04/20 10:00 06/04/20 11:04 Hydralazine Hcl 25 Mg Tablet PO 25 mg BID [facility] Administration Protocol Ceftriaxone Sodium 1 gm/ 50 mls @ 100 mls/hr 06/01/20 07:00 06/04/20 06:18 Sodium Chloride IV Infused Q24H [facility] Infusion Insulin Glargine 20 unit 06/04/20 09:00 06/04/20 08:04 Insulin Glargine,Hum.Rec.Anlog 100 Unit/Ml 10 Ml Vial SUBCUT Not Given DAILY [facility] Insulin Human Lispro 0 unit 06/01/20 07:30 06/04/20 12:04 Insulin Lispro 100 Unit/Ml 3 Ml Vial SUBCUT 2 unit QIDACHS [facility] Administration Protocol Insulin Human Lispro 6 unit 06/01/20 09:08 06/04/20 12:04 Insulin Lispro 100 Unit/Ml 3 Ml Vial SUBCUT 6 unit TIDAC [facility] Administration Metoprolol Succinate 100 mg 06/01/20 09:08 06/04/20 07:36 Metoprolol Succinate Er 100 Mg Tab.Er.24h PO 100 mg DAILY [facility] Administration Protocol Omeprazole 20 mg 06/01/20 09:08 06/04/20 05:32 Omeprazole 20 Mg Capsule.Dr PO 20 mg BID@0630,1630 [facility] Administration Rivaroxaban 20 mg 06/01/20 09:08 06/03/20 17:33 Rivaroxaban 20 Mg Tablet PO 20 mg DAILY@1700 [facility] Administration Tramadol HCl 50 mg 06/01/20 09:08 06/04/20 11:04 Tramadol Hcl 50 Mg Tablet PO 50 mg DAILY PRN Administration pain Labs CBC & Chem 7: 06/02/20 11:37 06/04/20 05:41 Microbiology Microbiology Results: Microbiology 06/01/20 01:28 Urine clean catch - Clean Catch Midstream Urine Culture - Final Escherichia coli 06/01/20 01:16 Blood - Venous Blood Culture - Preliminary No growth after 48 hours. 06/01/20 01:16 Blood - Venous Blood Culture - Preliminary No growth after 48 hours. 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 Status: Acute Assessment and Plan: This is an 84-year-old female with past medical history of hypertension, diabetes, says diastolic heart failure, who presents to the hospital with complaints of shortness of breath Acute on chronic Diastolic CHF improving Chest x-rays demonstrating pulmonary congestion, has elevated BNP, no evidence of pneumonia on chest x-ray, COVID-19 PCR negative Echo cardiogram done from May 2019 shows ejection fraction of 60-65% with grade 2 diastolic dysfunction Continue IV Lasix low-dose Cardiology following - strict I&O, daily weight, low-sodium diet Continue telemetry monitoring Atrial fib with RVR resolved Status post cardioversion Received amiodarone drip Continue p.o. amiodarone Continue Lopressor Continue Xarelto Hyperkalemia Hold losartan Given Kayexalate Monitor potassium Hyponatremia improving sodium around 133 nephrology following Toxic metabolic encephalopathy - secondary to UTI continue rocephin Urine culture growing E coli Mildly elevated troponin likely demand mediated no chest pain Hypertensive crisis on admission Later developed hypotension Hypotension resolved now blood pressure on higher side Hold losartan for hyperkalemia Started on hydralazine Diabetes mellitus continue lantus and SSI monitor BG DVT prophylaxis: xarelto
[2020-06-04 16:59] LABS: Glucose, Whole Blood 137 mg/dL (60-115)
--- NOTE | 2020-06-04 17:35 | PC.NURSE ---
P-Bp elevated 195/78, pulse 80,BS 137 I- Dr. Lam notified E-will administer lasix as ordered,will hold scheduled insulin
[2020-06-04] MEDS: Rivaroxaban 20 MG TABLET PO (17:41)
[2020-06-04 19:41] LABS: Glucose, Whole Blood 190 mg/dL (60-115)
[2020-06-04] MEDS: Atorvastatin Calcium 10 MG TABLET PO (21:32)
[2020-06-05 03:46] VITALS: BP 150/57; PULSE 72; RESP 18; TEMP 36.7; O2SAT 96
[2020-06-05 06:00] VITALS: BMI 26.8
[2020-06-05] MEDS: Omeprazole 20 MG CAPSULE.DR PO (06:12)
[2020-06-05] MEDS: cefTRIAXone sodium 1 GM in 0.9 % Sodium Chloride 50 ML IV (06:12)
[2020-06-05 07:37] LABS: Anion Gap 12 (12-20); B Type Natriuretic Peptide 561 pg/mL (<100); Blood Urea Nitrogen 24 mg/dL (9-16); Carbon Dioxide 31 mmol/L (22-29); Chloride 97 mmol/L (96-108); Creatinine Clr Calc Pharmacy 42.3; Estimated Glomerular Filt Rate > 60; Glucose Random 191 mg/dL (60-115); Potassium 3.7 mmol/L (3.3-5.1); Sodium 136 mmol/L (135-145)
[2020-06-05 07:38] LABS: Glucose, Whole Blood 229 mg/dL (60-115)
[2020-06-05 07:48] VITALS: BP 190/62; PULSE 73; RESP 20; TEMP 36.9; O2SAT 97
[2020-06-05] MEDS: Insulin Glargine,Hum.rec.anlog 100 UNIT/ML 10 ML VIAL 20 UNIT SUBCUT (08:01)
[2020-06-05] MEDS: Insulin Lispro 100 UNIT/ML 3 ML VIAL SUBCUT (08:02)
[2020-06-05] MEDS: Insulin Lispro 100 UNIT/ML 3 ML VIAL 6 UNIT SUBCUT (08:02)
[2020-06-05] MEDS: Furosemide 20 MG/2 ML VIAL IVPUSH (08:05)
[2020-06-05 08:07] VITALS: BP 190/62; PULSE 73
[2020-06-05] MEDS: Metoprolol Succinate ER 100 MG TAB.ER.24H PO (08:07)
[2020-06-05 08:08] VITALS: BP 190/62; PULSE 73
[2020-06-05] MEDS: Amiodarone HCL 200 MG TABLET PO (08:08)
[2020-06-05] MEDS: hydrALAZINE HCl 25 MG TABLET PO (08:08)
--- NOTE | 2020-06-05 08:53 | MHC.CM.PN ---
CM spoke to pts daughter, Janina ([phone]) who reports she would like the pt to discharge home today. She reports the pt has been here for several days and is unable to see her family. She reports the pt was humiliated when her hair was washed and wants to leave today. Janina reports she lives 5 minutes from the pt and is at her home several hours each day. She reports if needed she can stay with the pt. Janina reports she is a pharmacist and she feels she will be able to manage the pts medical needs at home. She states the pt told her that her blood sugar was slightly elevated this morning but that is easy to fix . GRICELDA informed her the doctor was currently rounding with his patients. GRICELDA will discuss this with MD when he is free. Janina reports she would like the MD to call her directly if he has any reservations regarding DC today. Pts current DC plan is home with resumption of family support and a new referral to [facility]. Janina will transport pt at [place].
--- NOTE | 2020-06-05 10:13 | MHC.CM.PN ---
Addendum entered by Marion Slaughter 06/05/20 12:29: CM informed pt getting a suppository soon and not ready to DC yet. CM contacted pts daughter and per discussion, pts tentative DC time was moved to 1600 hours. Original Note: PT WILL BE DISCHARGED HOME TODAY WITH [facility]. PTS DAUGHTER, ROBBY ([phone]) WILL SENIOR STATISTICIAN PT AROUND 1400 HOURS. SHE WILL BE BRINGING PT CLOTHES AND SHOES. [facility] NOTIFIED VIA [facility]
--- NOTE | 2020-06-05 10:35 | PM.DS ---
DS: Providers Provider Date of Service: 08/07/20 Date of admission: 06/01/20 06:06 Primary care physician: Monique White MD Consults: 06/01/20 05:54 Consult to Nephrology Routine Consulting [facility] Reason for consultation: hyponatremia Has provider been notified: No 06/02/20 11:07 Consult to Cardiology Routine Consulting Provider: Neil Jeong Reason for consultation: CHF exacerbation , afib with RVR DS: Diagnosis Discharge Diagnosis (1) CHF exacerbation: Status: Resolved (2) Acute hyponatremia: Status: Resolved (3) Acute alteration in mental status: Status: Resolved (4) UTI (urinary tract infection): Status: Acute (5) Elevated troponin: Status: Resolved (6) Atrial fibrillation: Status: Acute Problem details: Cardioversion May 2020 (7) Hypertension: Status: Deleted (8) Type 2 diabetes mellitus with hyperglycemia: Status: Acute Problem details: With retinopathy DS: Medications Discharge Medications Home Medications: Home Medications Medication Instructions Recorded Confirmed amiodarone 100 mg PO DAILY 06/01/20 06/01/20 hydralazine 1 tab PO BID 06/01/20 06/01/20 insulin glargine U-300 conc 13 unit SUBCUT QAM 06/01/20 06/01/20 [[place] SoloStar U-300 Insulin] insulin lispro [Humalog KwikPen 6 unit SUBCUT TID 06/01/20 06/01/20 Insulin] levothyroxine 1 tab PO DAILY 06/01/20 06/01/20 losartan 50 mg PO DAILY 06/01/20 06/01/20 metoprolol succinate 1 tab PO DAILY 06/01/20 06/01/20 omeprazole 1 cap PO BID 06/01/20 06/01/20 pen needle, diabetic [BD Eveline 2nd 06/01/20 06/01/20 Gen Pen Needle] rivaroxaban [Xarelto] 1 tab PO DAILY 06/01/20 06/01/20 simvastatin 1 tab PO BEDTIME 06/01/20 06/01/20 tramadol 1 tab PO DAILY PRN 06/01/20 06/01/20 travoprost drp OPHTHALMIC (EYE) 06/01/20 Previous Rx's Medication Instructions Recorded AUTO CPAP 6-16 cm H2O humidified #1 ea 04/14/20 air spironolactone 25 mg tablet 25 mg PO DAILY #90 tab 06/04/20 DS: Summary Hospital Course Hospital Course: Date of Service: 06/01/20 Chief Complaint: Shortness of breath This is an 84-year-old female with past medical history of hypertension, diabetes, AFib on Eliquis, diastolic heart failure presents to the hospital with complaints of shortness of breath. Patient reports that her symptoms started 2 days ago. Short of breath on exertion, not associated with any cough, or sputum production. No fever or chills. He denies orthopnea or PND, no lower extremity edema. Has no chest pain, no abdominal pain, nausea or vomiting, no diarrhea constipation. She denies any urinary symptoms and no lower extremity edema. She reports that she just has difficulty taking a deep breath and cannot get comfortable. Patient's daughter also reported to the ED physician that patient has been slightly confused for the past few days and is not completely sharp and herself as she usually is. She Per EMS patient was found to have an O2 sat of 82% on room air. Was placed on non-rebreather and came up to 100%. Currently on 6 L satting above 95%. Vitals otherwise are significant for tachypnea willow with respiratory rate of 26, blood pressure of 224/81, patient received Lasix 60 mg with improvement in her tachypnea as well as blood pressure to 160/49. Labs are significant for WBC count of 15, hemoglobin of 10 which is her baseline, sodium of 126 (chronically low in the low 30s, 132 from 04/21/20), BUN of 41, creatinine of 1.31 which is around her baseline, AST of 39, ALT of 37, BNP of 413, that is positive for leukocyte Estrace and WBC count. COVID-19 negative, Chest x-ray shows small pleural effusion. Central vascular prominence with interstitial marking favoring edema. Hospital: The patient was admitted for AFIB with RVR, compounded by hert failure, hypOkalemia and UTI. AFIB with RVR--she underwent cardioversion and loaded with Amiodarone. She remains in sinus rythm and will continue amiodarone load with 200 bid for 2 week, then 200 daily and follow up with Dr. Jeong. To luis Woods Acute on chronic diastolicy heart failure--mer precicipated by AFIB with RVR and treated with IV Lasix. BNP has incrementally gone up but is likely lagging behind as patient presently does not have signs or symptoms of heart failure. Po Lasix at discharge 20 mg daily Hyperkalemia--up to 5.5, attributed to Aldactone in combinationwith Valsartant. Recieved Kayexalate x 1. Aldactone will be permanently stopped and resumming Valsartan at discharge. Hyponatremia--was mild and has resolved. 133, now 137 Toxic metabolic encephalopathy UTI d/t E. coli, uncomplicated. Treated with 5 days of ceftriaxone. Mildly elevated troponin d/t AF with RVR, no chext pain, no additional work up indicated. Hypertensive --BP have been on high side, Valsartan has been stopped d/t high Potassium. Will resume Valsartant and increase hydralazine from 10 bid to 25 bid. BP is currently 136/50 Diabetes mellitus--Resume home insulin Time Spent with Patient Time attestation: Total time spent providing and/or coordinating discharge services: Discharge coordination time: Greater than 30 minutes Physical Exam Vital Signs: Vital Signs: Last Vital Signs Temp 98.4 F 06/05/20 07:48 Pulse 73 06/05/20 08:08 Resp 20 06/05/20 07:48 BP 190/62 H 06/05/20 08:08 Pulse Ox 97 06/05/20 07:48 Body Mass Index 26.8 Constitutional Awake and Alert, No apparent distress Neck Supple, No lymphadenopathy Cardiovascular RRR, No M/R/G, S1 S2, No S3 S4, No pedal edema Respiratory Lungs clear, No respiratory distress Gastrointestinal Non tender, Non-distended Skin No rash Neurological Alert & oriented x3 Psychological Appropriate affect DS: Data Data Completed and Pending Labs on day of discharge: Laboratory Results - last 24 hr 06/04/20 06/04/20 06/04/20 11:49 16:33 19:15 Sodium Potassium Chloride Carbon Dioxide Anion Gap BUN Creatinine Estim Creat Clear Calc Estimated GFR POC Glucose 179 H 137 H 190 H Random Glucose Calcium B-Natriuretic Peptide 06/05/20 06/05/20 06/05/20 05:29 05:29 07:16 Sodium 136 Potassium 3.7 D Chloride 97 Carbon Dioxide 31 H Anion Gap 12 BUN 24 H Creatinine 0.83 Estim Creat Clear Calc 42.3 Estimated GFR > 60 POC Glucose 229 H Random Glucose 191 H D Calcium 8.0 L B-Natriuretic Peptide 561 H Preliminary micro results at discharge 06/01/20 01:16 Blood Culture - Preliminary Blood - Venous No growth after 48 hours. 06/01/20 01:16 Blood Culture - Preliminary Blood - Venous No growth after 48 hours. Discharge Plan Discharge Anticipated Discharge Date/Time: 06/05/20 10:53 Patient Disposition: Home, Self-Care Discharge Diagnosis: UTI UTI, AFib, Referrals: [facility] [Other] Po,Monique Wesley MD [Primary Care Provider] - Discharge Medications: Continued travoprost 0.004 % drops ophthalmic (eye) RF: 0 omeprazole 20 mg capsule,delayed release(DR/EC) 1 cap PO BID RF: 0 levothyroxine 125 mcg tablet 1 tab PO DAILY RF: 0 (DME) AUTO CPAP 6-16 cm H2O humidified air See Rx Instructions .Route .MEDSUPPLY Qty: 1 RF: 0 Discontinued spironolactone 25 mg tablet 25 mg PO DAILY Qty: 90 RF: 2 hydralazine 10 mg tablet 1 tab PO BID RF: 0 amiodarone 200 mg tablet 100 mg PO DAILY RF: 0 No Action Everette Meeks U-300 Insulin 300 unit/mL (1.5 mL) insulin pen 12 unit subcut QAM Qty: 3 RF: 11 metolazone 2.5 mg tablet 2.5 mg PO DAILY 30 Days Qty: 30 RF: 5 hydralazine 25 mg tablet 25 mg PO TID 30 Days Qty: 90 RF: 5 pen needle, diabetic [BD Eveline 2nd Gen Pen Needle] 32 gauge x 5/32 needle See Rx Instructions .ROUTE .COMPLEX 90 Days Qty: 500 RF: 3 Xarelto 20 mg tablet 20 mg PO DAILY RF: 0 simvastatin 10 mg tablet 10 mg PO BEDTIME RF: 0 metoprolol succinate 100 mg tablet extended release 24 hr 100 mg PO DAILY RF: 0 insulin lispro [Humalog KwikPen Insulin] 100 unit/mL insulin pen 6 unit subcut TID 90 Days Qty: 6 RF: 3 amiodarone 100 mg tablet 100 mg PO DAILY RF: 0 hydralazine 50 mg tablet 50 mg PO TID Qty: 270 RF: 4 losartan 100 mg tablet 100 mg PO DAILY Qty: 90 RF: 0 furosemide 80 mg tablet 80 mg PO BID RF: 0 Discharge Orders: Discharge Order (Routine); Ordered 06/05/20 Ordered By: Luis Daniel Latif Diet: advance to usual diet Activity on Discharge: As tolerated Stand Alone Forms: Patient Portal Discharge page Care Plan Goals: prevent responsible Health Concerns: Atrial fibirilation and heart failure Plan of Treatment: Take Lasix for heart failure, take amiodarone as recommeded for atrial fibrilation and follow up with your doctor in a week, call for appointment Assessment: UTI, AFib. Discharge Date/Time: 06/05/20 17:10
[2020-06-05 11:18] VITALS: BP 136/50; PULSE 62; RESP 20; TEMP 36.9; O2SAT 96
[2020-06-05 11:19] LABS: Glucose, Whole Blood 90 mg/dL (60-115)
[2020-06-05] MEDS: bisacodyL 10 MG SUPP.RECT PR (12:27)
[2020-06-05 13:00] VITALS: O2SAT 98
== END 2020-06-05 17:10 | disposition home or self-care (01) | DRG 291 ==
LOC: HO.ED 02:51 → HO.S3 07:24 → HO.IMC 06-02 15:58
PROVIDERS: Internal Medicine; Internal Medicine Cardiovascular Disease; Nurse Practitioner Family; Admitting Provider Internal Medicine; Emergency Provider Emergency Medicine; PCP Internal Medicine; Visit Provider Internal Medicine
PROC: 5A2204Z Restoration of Cardiac Rhythm, Single (ICD-10-PCS; principal; 2020-06-03 11:00)
DX: I13.0 Hypertensive heart and chronic kidney disease with heart failure and stage 1 through stage 4 chronic kidney disease, or unspecified chronic kidney disease (principal); I50.33 Acute on chronic diastolic (congestive) heart failure; G92 Toxic encephalopathy; E87.1 Hypo-osmolality and hyponatremia; N39.0 Urinary tract infection, site not specified; I16.9 Hypertensive crisis, unspecified; E11.65 Type 2 diabetes mellitus with hyperglycemia; E11.22 Type 2 diabetes mellitus with diabetic chronic kidney disease; E03.9 Hypothyroidism, unspecified; E11.319 Type 2 diabetes mellitus with unspecified diabetic retinopathy without macular edema; I95.9 Hypotension, unspecified; N18.30 Chronic kidney disease, stage 3 unspecified; I48.0 Paroxysmal atrial fibrillation; G47.33 Obstructive sleep apnea (adult) (pediatric); B96.20 Unspecified Escherichia coli [E. coli] as the cause of diseases classified elsewhere; Z20.822 Contact with and (suspected) exposure to COVID-19; Z88.2 Allergy status to sulfonamides; Z88.5 Allergy status to narcotic agent; Z79.4 Long term (current) use of insulin; Z79.890 Hormone replacement therapy; Z79.891 Long term (current) use of opiate analgesic; Z79.899 Other long term (current) drug therapy
CPT/HCPCS: 0241U; 36415; 71045; 76775; 78580; 80048; 80076; 81001; 81003; 82947; 83605; 83880; 83930; 84484; 85025; 87040; 87086; 87088; 87186; 92960; 93005; 93306; 94660; 96374; 96375; 99285; A9540; J0282; J0696; J1940; J2405

== ENCOUNTER 2020-06-14 13:05 | Outpatient (REF) | payer MEDICARE, SELFPAY ==
[2020-06-14 15:54] LABS: Anion Gap 15 (12-20); Blood Urea Nitrogen 20 mg/dL (9-16); Calcium 8.8 mg/dL (8.4-10.2); Carbon Dioxide 27 mmol/L (22-29); Chloride 96 mmol/L (96-108); Estimated Glomerular Filt Rate 39; Glucose Random 306 mg/dL (60-115); Potassium 4.9 mmol/L (3.3-5.1); Sodium 133 mmol/L (135-145)
[2020-06-14 16:01] LABS: B Type Natriuretic Peptide 354 pg/mL (<100)
== END 2020-06-14 13:06 | disposition home or self-care (01) ==
LOC: HO.LAB 13:05
PROVIDERS: PCP Internal Medicine; Visit Provider Internal Medicine
DX: I11.0 Hypertensive heart disease with heart failure (principal); I50.32 Chronic diastolic (congestive) heart failure; I25.10 Atherosclerotic heart disease of native coronary artery without angina pectoris; I48.0 Paroxysmal atrial fibrillation; E87.5 Hyperkalemia; E11.8 Type 2 diabetes mellitus with unspecified complications; G47.33 Obstructive sleep apnea (adult) (pediatric); Z79.01 Long term (current) use of anticoagulants; Z79.899 Other long term (current) drug therapy; Z99.89 Dependence on other enabling machines and devices
CPT/HCPCS: 36415; 80048; 83880; 93005; 99212

== ENCOUNTER → 2020-06-30 13:04 | Outpatient (BNVA) | payer MEDICARE, SELFPAY | PROVIDERS: PCP Internal Medicine; Visit Provider Internal Medicine | DX: I50.33 Acute on chronic diastolic (congestive) heart failure (principal); I48.0 Paroxysmal atrial fibrillation; I25.10 Atherosclerotic heart disease of native coronary artery without angina pectoris; I10 Essential (primary) hypertension; E11.8 Type 2 diabetes mellitus with unspecified complications; G47.33 Obstructive sleep apnea (adult) (pediatric); E87.5 Hyperkalemia; Z99.89 Dependence on other enabling machines and devices; Z79.899 Other long term (current) drug therapy; Z51.81 Encounter for therapeutic drug level monitoring | CPT/HCPCS: Q3014 ==

== ENCOUNTER 2020-07-06 13:51 | Outpatient (REF) | payer MEDICARE, SELFPAY ==
[2020-07-06 14:22] LABS: MANUAL DIFF FLAG NO
[2020-07-06 14:26] LABS: Basophils Absolute Auto 0.1 X10*3/uL (0.0-0.2); Basophils Percent Auto 0.6 % (0-2); Eosinophils Absolute Auto 0.2 X10*3/uL (0.0-0.4); Eosinophils Percent Auto 2.6 % (0-4); Hemoglobin 9.5 g/dl (12.0-16.0); Imm Gran Abs Auto 0.03 X10*3/uL (0.00-0.03); Imm Gran Pct Auto 0.4 % (0.0-0.4); Immature Retic Fraction 6.9 % (3.0-15.9); Lymphocytes Absolute Auto 1.8 X10*3/uL (1.2-4.9); Lymphocytes Percent Auto 22.7 % (20-40); Mean Corpuscular HGB Conc 32.8 g/dl (31.0-35.0); Mean Corpuscular Hemoglobin 31.1 pg (27.0-33.0); Mean Corpuscular Volume 95.1 fL (80-98); Mean Platelet Volume 10.9 fL (9.4-12.3); Monocytes Percent Auto 12.6 % (2-11); Neutrophils Absolute Auto 4.7 X10*3/uL (2.0-8.3); Neutrophils Percent Auto 61.1 % (45-73); Platelet Count 288 X10*3/uL (160-400); Red Blood Count 3.05 X10*6/uL (4.20-5.50); Red Cell Distribution Width 15.3 % (11.0-16.0); Retic HGB Equivalent 34.7 pg (30.0-35.0); Reticulocyte Percent 1.4 % (0.5-1.8); Reticulocytes Absolute 0.042 X10*6/uL (0.026-0.095); White Blood Count 7.8 X10*3/uL (4.8-10.8)
[2020-07-06 14:50] LABS: Alanine Aminotransferase 23 U/L (0-31); Albumin Level 4.2 g/dL (3.5-5.0); Alkaline Phosphatase 91 U/L (39-117); Anion Gap 16 (12-20); Aspartate Amino Transferase 16 U/L (5-31); Bilirubin Total 0.5 mg/dL (0.0-1.0); Blood Urea Nitrogen 44 mg/dL (9-16); Calcium 8.8 mg/dL (8.4-10.2); Carbon Dioxide 26 mmol/L (22-29); Chloride 94 mmol/L (96-108); Estimated Glomerular Filt Rate 31; Glucose Random 285 mg/dL (60-115); Iron 45 mcg/dL (30-160); Percent Iron Saturation 14 % (15-50); Potassium 4.2 mmol/L (3.3-5.1); Sodium 132 mmol/L (135-145); Total Iron Binding Capacity 317 mcg/dL (228-428); Total Protein 6.7 g/dL (6.5-8.0); Unsaturated Iron Binding 272 ug/dL
[2020-07-06 14:54] LABS: B Type Natriuretic Peptide 360 pg/mL (<100)
[2020-07-06 15:13] LABS: Creatinine Urine 60.68 mg/dL
[2020-07-06 15:16] LABS: Ferritin 42 ng/mL (10-250); Free T4 (Free Thyroxine) 1.99 ng/dL (0.71-1.85); Thyroid Stimulating Hormone 2.33 uIU/mL (0.32-4.0)
[2020-07-06 15:23] LABS: Folate 16.4 ng/mL (> or = 4.0); Vitamin B12 672 pg/mL (200-900)
[2020-07-06 15:57] LABS: Estimated Average Glucose 237 mg/dL; Hemoglobin A1c % 9.9 %
[2020-07-06 16:29] LABS: C Reactive Protein 0.39 mg/dL (< or = 0.50)
== END 2020-07-06 13:52 | disposition home or self-care (01) ==
LOC: HO.LAB 13:51
PROVIDERS: Physical Medicine & Rehabilitation; PCP Internal Medicine; Visit Provider Internal Medicine
DX: E11.65 Type 2 diabetes mellitus with hyperglycemia (principal); E03.9 Hypothyroidism, unspecified; I50.33 Acute on chronic diastolic (congestive) heart failure; M79.18 Myalgia, other site; Z79.4 Long term (current) use of insulin
CPT/HCPCS: 36415; 80053; 82550; 82607; 82728; 82746; 83036; 83540; 83880; 84439; 84443; 85025; 85045; 86140

== ENCOUNTER 2020-07-22 11:46 | Outpatient (REF) | payer MEDICARE, SELFPAY ==
[2020-07-22 12:48] LABS: Anion Gap 15 (12-20); Blood Urea Nitrogen 54 mg/dL (9-16); Calcium 8.8 mg/dL (8.4-10.2); Carbon Dioxide 26 mmol/L (22-29); Chloride 97 mmol/L (96-108); Estimated Glomerular Filt Rate 37; Glucose Random 231 mg/dL (60-115); Potassium 3.8 mmol/L (3.3-5.1); Sodium 134 mmol/L (135-145)
[2020-07-22 12:51] LABS: B Type Natriuretic Peptide 429 pg/mL (<100)
== END 2020-07-22 11:47 | disposition home or self-care (01) ==
LOC: HO.LAB 11:46
PROVIDERS: PCP Internal Medicine; Visit Provider Internal Medicine
DX: I50.32 Chronic diastolic (congestive) heart failure (principal); I50.33 Acute on chronic diastolic (congestive) heart failure
CPT/HCPCS: 36415; 80048; 83880

== ENCOUNTER 2020-07-27 13:33 | Outpatient (REF) | payer MEDICARE, SELFPAY | END 2020-07-27 13:34 | disposition home or self-care (01) | LOC: HO.LAB 13:33 | PROVIDERS: Visit Provider Internal Medicine | DX: Z13.89 Encounter for screening for other disorder (principal) ==

== ENCOUNTER → 2020-08-02 13:34 | Outpatient (BNVA) | payer MEDICARE, SELFPAY | PROVIDERS: PCP Internal Medicine; Visit Provider Internal Medicine | DX: I50.33 Acute on chronic diastolic (congestive) heart failure (principal); I48.0 Paroxysmal atrial fibrillation; I25.10 Atherosclerotic heart disease of native coronary artery without angina pectoris; I10 Essential (primary) hypertension; E11.8 Type 2 diabetes mellitus with unspecified complications; E78.5 Hyperlipidemia, unspecified; G47.33 Obstructive sleep apnea (adult) (pediatric); Z99.89 Dependence on other enabling machines and devices; Z51.81 Encounter for therapeutic drug level monitoring; Z79.899 Other long term (current) drug therapy | CPT/HCPCS: 99212 ==

== ENCOUNTER 2020-11-01 12:48 | Outpatient (REF) | payer MEDICARE, SELFPAY ==
[2020-11-01 14:35] LABS: Anion Gap 15 (12-20); Blood Urea Nitrogen 50 mg/dL (9-16); Calcium 9.1 mg/dL (8.4-10.2); Carbon Dioxide 29 mmol/L (22-29); Chloride 97 mmol/L (96-108); Estimated Glomerular Filt Rate 31; Glucose Random 187 mg/dL (60-115); Potassium 4.9 mmol/L (3.3-5.1); Sodium 136 mmol/L (135-145)
[2020-11-01 14:41] LABS: B Type Natriuretic Peptide 717 pg/mL (<100)
== END 2020-11-01 12:49 | disposition home or self-care (01) ==
LOC: HO.LAB 12:48
PROVIDERS: PCP Internal Medicine; Referring Provider Internal Medicine; Visit Provider Internal Medicine
DX: I48.0 Paroxysmal atrial fibrillation (principal); I11.0 Hypertensive heart disease with heart failure; I50.82 Biventricular heart failure; I25.10 Atherosclerotic heart disease of native coronary artery without angina pectoris; E11.8 Type 2 diabetes mellitus with unspecified complications; E78.5 Hyperlipidemia, unspecified; G47.33 Obstructive sleep apnea (adult) (pediatric); Z99.89 Dependence on other enabling machines and devices; Z79.899 Other long term (current) drug therapy
CPT/HCPCS: 36415; 80048; 83880; 99212

== ENCOUNTER 2021-02-28 08:09 | Outpatient (REF) | payer MEDICARE, SELFPAY ==
[2021-02-28 08:31] LABS: MANUAL DIFF FLAG NO
[2021-02-28 09:38] LABS: Basophils Absolute Auto 0.1 X10*3/uL (0.0-0.2); Basophils Percent Auto 1.4 % (0-2); Eosinophils Absolute Auto 0.3 X10*3/uL (0.0-0.4); Hematocrit 30.7 % (37.0-47.0); Hemoglobin 10.1 g/dl (12.0-16.0); Imm Gran Abs Auto 0.01 X10*3/uL (0.00-0.03); Imm Gran Pct Auto 0.2 % (0.0-0.4); Immature Retic Fraction 6.9 % (3.0-15.9); Lymphocytes Absolute Auto 1.6 X10*3/uL (1.2-4.9); Mean Corpuscular HGB Conc 32.9 g/dl (31.0-35.0); Mean Corpuscular Hemoglobin 31.9 pg (27.0-33.0); Mean Corpuscular Volume 96.8 fL (80.0-98.0); Mean Platelet Volume 10.5 fL (9.4-12.3); Monocytes Absolute Auto 0.6 X10*3/uL (0.1-1.2); Neutrophils Absolute Auto 3.1 x10*3/uL (2.0-8.3); Neutrophils Percent Auto 54.4 % (45-73); Platelet Count 272 X10*3/uL (160-400); Red Blood Count 3.17 X10*6/uL (4.20-5.50); Red Cell Distribution Width 13.2 % (11.0-16.0); Retic HGB Equivalent 36.2 pg (30.0-35.0); Reticulocyte Percent 1.5 % (0.5-1.8); Reticulocytes Absolute 0.046 X10*6/uL (0.026-0.095); White Blood Count 5.7 X10*3/uL (4.8-10.8)
[2021-02-28 09:46] LABS: Estimated Average Glucose 237 mg/dL; Hemoglobin A1c % 9.9 %
[2021-02-28 10:03] LABS: B Type Natriuretic Peptide 343 pg/mL (<100)
[2021-02-28 10:08] LABS: Cholesterol 151 mg/dL; HDL Cholesterol 55 mg/dL; LDL Cholesterol Calculated 75 mg/dl; Triglycerides 105 mg/dL
[2021-02-28 10:11] LABS: Alanine Aminotransferase 15 U/L (0-31); Albumin Level 4.2 g/dL (3.5-5.0); Alkaline Phosphatase 82 U/L (39-117); Anion Gap 12 (12-20); Aspartate Amino Transferase 17 U/L (5-31); Bilirubin Total 0.4 mg/dL (0.0-1.0); Blood Urea Nitrogen 45 mg/dL (9-16); Calcium 9.2 mg/dL (8.4-10.2); Carbon Dioxide 31 mmol/L (22-29); Chloride 97 mmol/L (96-108); Cholesterol 151 mg/dL; Estimated Glomerular Filt Rate 39; Glucose Random 237 mg/dL (60-115); HDL Cholesterol 55 mg/dL; Iron 62 mcg/dL (30-160); LDL Cholesterol Calculated 76 mg/dl; Percent Iron Saturation 22 % (15-50); Potassium 3.9 mmol/L (3.3-5.1); Sodium 136 mmol/L (135-145); Total Iron Binding Capacity 285 mcg/dL (228-428); Total Protein 6.7 g/dL (6.5-8.0); Triglycerides 103 mg/dL; Unsaturated Iron Binding 223 ug/dL
[2021-02-28 10:33] LABS: Ferritin 50 ng/mL (10-250); Free T4 (Free Thyroxine) 1.75 ng/dL (0.71-1.85); Thyroid Stimulating Hormone 0.72 uIU/mL (0.32-4.0); Vitamin D 25-OH Total 23.7 ng/mL (>30)
[2021-02-28 10:41] LABS: Folate 17.8 ng/mL (> or = 4.0); Vitamin B12 625 pg/mL (200-900)
== END 2021-02-28 08:10 | disposition home or self-care (01) ==
LOC: HO.LAB 08:09
PROVIDERS: Nurse Practitioner Family; PCP Internal Medicine; Visit Provider Internal Medicine
DX: I50.32 Chronic diastolic (congestive) heart failure (principal); E78.00 Pure hypercholesterolemia, unspecified; M25.551 Pain in right hip; I25.10 Atherosclerotic heart disease of native coronary artery without angina pectoris
CPT/HCPCS: 36415; 80053; 80061; 82306; 82607; 82728; 82746; 83036; 83540; 83880; 84439; 84443; 85025; 85045

== ENCOUNTER → 2021-03-01 10:16 | Outpatient (BNVA) | payer MEDICARE, SELFPAY | PROVIDERS: PCP Internal Medicine; Referring Provider Internal Medicine; Visit Provider Internal Medicine | DX: I11.0 Hypertensive heart disease with heart failure (principal); I50.32 Chronic diastolic (congestive) heart failure; I48.0 Paroxysmal atrial fibrillation; I25.10 Atherosclerotic heart disease of native coronary artery without angina pectoris; E11.8 Type 2 diabetes mellitus with unspecified complications; E78.5 Hyperlipidemia, unspecified; G47.33 Obstructive sleep apnea (adult) (pediatric); Z99.89 Dependence on other enabling machines and devices | CPT/HCPCS: 93005; 99212 ==

== ENCOUNTER 2021-03-08 16:13 | Outpatient (REF) | payer MEDICARE, SELFPAY ==
[2021-03-08 17:49] LABS: Appearance Urine CLEAR; Color Urine YELLOW; Glucose Urine UA 100 MG/DL (NEG); Leukocyte Esterase Urine NEG (NEG); Nitrite Urine NEG (NEG); PH 5.5 (5.0-8.0); Urine Blood NEG (NEG); Urine Ketones NEG (NEG); Urine Protein NEG (NEG-TRACE)
[2021-03-08 18:08] LABS: Anion Gap 14 (12-20); Blood Urea Nitrogen 70 mg/dL (9-16); Calcium 9.5 mg/dL (8.4-10.2); Carbon Dioxide 33 mmol/L (22-29); Chloride 86 mmol/L (96-108); Estimated Glomerular Filt Rate 23; Glucose Random 211 mg/dL (60-115); Potassium 4.2 mmol/L (3.3-5.1); Sodium 129 mmol/L (135-145)
== END 2021-03-08 16:14 | disposition home or self-care (01) ==
LOC: HO.LAB 16:13
PROVIDERS: Internal Medicine; PCP Internal Medicine; Visit Provider Internal Medicine
DX: N39.0 Urinary tract infection, site not specified (principal); I50.33 Acute on chronic diastolic (congestive) heart failure
CPT/HCPCS: 36415; 80048; 81003

== ENCOUNTER 2021-03-11 11:58 | Outpatient (REF) | payer MEDICARE, SELFPAY ==
[2021-03-11 13:21] LABS: Anion Gap 14 (12-20); Blood Urea Nitrogen 61 mg/dL (9-16); Calcium 9.1 mg/dL (8.4-10.2); Carbon Dioxide 30 mmol/L (22-29); Chloride 91 mmol/L (96-108); Estimated Glomerular Filt Rate 30; Glucose Random 267 mg/dL (60-115); Potassium 4.4 mmol/L (3.3-5.1); Sodium 131 mmol/L (135-145)
[2021-03-11 13:24] LABS: B Type Natriuretic Peptide 599 pg/mL (<100)
== END 2021-03-11 11:59 | disposition home or self-care (01) ==
LOC: HO.LAB 11:58
PROVIDERS: PCP Internal Medicine; Visit Provider Internal Medicine
DX: I50.32 Chronic diastolic (congestive) heart failure (principal)
CPT/HCPCS: 36415; 80048; 83880

== ENCOUNTER 2021-03-14 07:42 | Outpatient (REF) | payer MEDICARE, SELFPAY ==
--- NOTE | ~2021-03-14 | XR_ITS ---
EXAMINATION: AP STANDING BILATERAL KNEES. LATERAL AND SUNRISE VIEWS OF THE RIGHT KNEE CLINICAL INFORMATION: Right knee pain. COMPARISON: 03/10/2020 TECHNIQUE: AP standing view of both knees and lateral and sunrise views of the right knee. FINDINGS: There is osteopenia of visualized bones. There is some mild narrowing with marginal sclerosis and spurring about the lateral joint space compartment of the left knee. No acute fracture or dislocation is evident. 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 No fracture or effusion. There are prominent arterial calcifications present bilaterally. XR/XR knee RT 2V IMPRESSION: Status post right total knee arthroplasty with no evidence of acute fracture, dislocation, or prosthetic failure. Mild left knee lateral joint space compartment degenerative change.
--- NOTE | ~2021-03-14 | XR_ITS ---
EXAMINATION: AP STANDING BILATERAL KNEES. LATERAL AND SUNRISE VIEWS OF THE RIGHT KNEE CLINICAL INFORMATION: Right knee pain. COMPARISON: 03/10/2020 TECHNIQUE: AP standing view of both knees and lateral and sunrise views of the right knee. FINDINGS: There is osteopenia of visualized bones. There is some mild narrowing with marginal sclerosis and spurring about the lateral joint space compartment of the left knee. No acute fracture or dislocation is evident. 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 No fracture or effusion. There are prominent arterial calcifications present bilaterally. XR/XR knee standing BI IMPRESSION: Status post right total knee arthroplasty with no evidence of acute fracture, dislocation, or prosthetic failure. Mild left knee lateral joint space compartment degenerative change.
== END 2021-03-14 07:43 | disposition home or self-care (01) ==
LOC: HO.HOSX 07:42
PROVIDERS: Visit Provider Physician Assistant
DX: M70.61 Trochanteric bursitis, right hip (principal); M25.562 Pain in left knee; Z96.651 Presence of right artificial knee joint
CPT/HCPCS: 20610; 73560; 73565; 99212; J1020

== ENCOUNTER 2021-03-25 10:21 | Outpatient (REF) | payer MEDICARE, SELFPAY ==
--- NOTE | ~2021-03-25 | XR_ITS ---
EXAMINATION: XR PELVIS XR FEMUR, RIGHT CLINICAL INFORMATION: Pain in unspecified hip. Trochanteric bursitis, right hip. COMPARISON: MR right hip 03/20/2021. XR right femur 12/16/2019. CT pelvis 12/08/2019. TECHNIQUE: AP and low AP views of the pelvis. AP and frog lateral views (5 images) of the right femur. FINDINGS: There is no acute fracture or malalignment. There is a stable-appearing left total hip arthroplasty which appears well seated in near-anatomic alignment with no evidence of hardware failure. There is no change in moderate osteoarthritis of the right hip. There is a stable-appearing right total knee arthroplasty which appears well seated in near-anatomic alignment with no evidence of hardware failure. There are diffuse arterial calcifications. XR/XR femur RT 2V IMPRESSION: No change in moderate osteoarthritis of the right hip. 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
--- NOTE | ~2021-03-25 | XR_ITS ---
EXAMINATION: XR PELVIS XR FEMUR, RIGHT CLINICAL INFORMATION: Pain in unspecified hip. Trochanteric bursitis, right hip. COMPARISON: MR right hip 03/20/2021. XR right femur 12/16/2019. CT pelvis 12/08/2019. TECHNIQUE: AP and low AP views of the pelvis. AP and frog lateral views (5 images) of the right femur. FINDINGS: There is no acute fracture or malalignment. There is a stable-appearing left total hip arthroplasty which appears well seated in near-anatomic alignment with no evidence of hardware failure. There is no change in moderate osteoarthritis of the right hip. There is a stable-appearing right total knee arthroplasty which appears well seated in near-anatomic alignment with no evidence of hardware failure. There are diffuse arterial calcifications. XR/XR pelvis 1-2V IMPRESSION: No change in moderate osteoarthritis of the right hip. 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
== END 2021-03-25 10:22 | disposition home or self-care (01) ==
LOC: HO.HOSX 10:21
PROVIDERS: PCP Internal Medicine; Visit Provider Physician Assistant
DX: M70.61 Trochanteric bursitis, right hip (principal); S83.411A Sprain of medial collateral ligament of right knee, initial encounter; X58.XXXA Exposure to other specified factors, initial encounter; Y93.9 Activity, unspecified; Y92.9 Unspecified place or not applicable; Y99.9 Unspecified external cause status
CPT/HCPCS: 72170; 73552; 99212

== ENCOUNTER → 2021-04-26 11:13 | Outpatient (BNVA) | payer MEDICARE, SELFPAY | PROVIDERS: PCP Internal Medicine; Referring Provider Internal Medicine; Visit Provider Internal Medicine | DX: I11.0 Hypertensive heart disease with heart failure (principal); I50.32 Chronic diastolic (congestive) heart failure; I48.0 Paroxysmal atrial fibrillation; I25.10 Atherosclerotic heart disease of native coronary artery without angina pectoris; E11.8 Type 2 diabetes mellitus with unspecified complications; E78.5 Hyperlipidemia, unspecified; G47.33 Obstructive sleep apnea (adult) (pediatric); Z99.89 Dependence on other enabling machines and devices | CPT/HCPCS: 93005; 99212 ==

== ENCOUNTER 2021-05-15 10:10 | Emergency (ER) | payer MEDICARE, SELFPAY ==
[2021-05-15] VITALS (7 sets, daily range): BP systolic 122–144; BP diastolic 37–72; PULSE 51–109; RESP 12–20; TEMP 36.6–36.8; O2SAT 98–100; BMI 24.3
--- NOTE | ~2021-05-15 | XR_ITS ---
EXAMINATION: XR CHEST CLINICAL INFORMATION: Palpitations. COMPARISON: Chest radiograph done on 06/01/2020. TECHNIQUE: 2 views of the chest were obtained. FINDINGS: Previously documented bilateral diffuse predominantly interstitial airspace disease shows interval resolution with improved lung expansion since 06/01/2020. No evidence of any dense airspace consolidation. The cardiac mediastinal silhouette is within normal limits. No evidence of any pleural effusion or pneumothorax. Visualized upper abdomen is unremarkable. XR/XR chest 2V IMPRESSION: Interval resolution of previously documented bilateral diffuse predominantly interstitial airspace disease associated with improved lung expansion since 06/01/2020. No new abnormalities.
--- NOTE | 2021-05-15 10:20 | ECG_ITS ---
Test Reason : palpatation/ neck pain Blood Pressure : / mmHG Vent. Rate : 105 BPM Atrial Rate : 000 BPM P-R Int : 000 ms QRS Dur : 112 ms QT Int : 330 ms P-R-T Axes : 000 -42 102 degrees QTc Int : 436 ms Atrial fibrillation with rapid ventricular response with premature ventricular or aberrantly conducted complexes Left axis deviation Left ventricular hypertrophy with repolarization abnormality ( R in aVL , Riley product ) Abnormal ECG When compared with ECG of 03-JUN-2020 12:15, Atrial fibrillation has replaced Sinus rhythm ST now depressed in Lateral leads Referred By: Fani Nascimento Electronically Signed By:Ulises Talavera
[2021-05-15 10:36] LABS: MANUAL DIFF FLAG NO
[2021-05-15 10:37] LABS: Basophils Absolute Auto 0.1 X10*3/uL (0.0-0.2); Basophils Percent Auto 0.8 % (0-2); Eosinophils Absolute Auto 0.1 X10*3/uL (0.0-0.4); Eosinophils Percent Auto 1.4 % (0-4); Hematocrit 30.1 % (37.0-47.0); Hemoglobin 10.1 g/dl (12.0-16.0); Imm Gran Abs Auto 0.02 X10*3/uL (0.00-0.03); Imm Gran Pct Auto 0.2 % (0.0-0.4); Lymphocytes Absolute Auto 1.5 X10*3/uL (1.2-4.9); Lymphocytes Percent Auto 17.3 % (20-40); Mean Corpuscular HGB Conc 33.6 g/dl (31.0-35.0); Mean Corpuscular Hemoglobin 31.4 pg (27.0-33.0); Mean Corpuscular Volume 93.5 fL (80.0-98.0); Mean Platelet Volume 10.1 fL (9.4-12.3); Neutrophils Absolute Auto 5.7 x10*3/uL (2.0-8.3); Neutrophils Percent Auto 68.3 % (45-73); Platelet Count 382 X10*3/uL (160-400); Red Blood Count 3.22 X10*6/uL (4.20-5.50); Red Cell Distribution Width 13.8 % (11.0-16.0); White Blood Count 8.4 X10*3/uL (4.8-10.8)
[2021-05-15 10:43] LABS: INTERNATIONAL NORM RATIO 1.9 (0.9-1.1); Prothrombin Time 21.7 SEC (9.9-13.0)
--- NOTE | 2021-05-15 10:44 | ED_ITS ---
HPI - General Adult General Chief complaint: General Medical <TRINI Calix - Last Filed: 05/15/21 14:13> Stated complaint: increase heart rate <TRINI Calix - Last Filed: 05/15/21 14:13> Time Seen by Provider: 05/15/21 10:20 <TRINI Calix Last Filed: 05/15/21 14:13> Source: patient and family (GD) <TRINI Calix - Last Filed: 05/15/21 14:13> Mode of arrival: EMS <TRINI Calix Last Filed: 05/15/21 14:13> Limitations: no limitations <TRINI Calix Last Filed: 05/15/21 14:13> History of Present Illness HPI narrative: 85 y/o female with a history of atrial fibrillation on Xarelto, diastolic congestive heart failure, diabetes, coronary artery disease, and hypertension, sent in by [employer] Dr Morrow for possible cardioversion. Her granddaughter Ramandeep is at bedside, and helps give the history Four days ago, patient suddenly felt lightheaded, and her heart rate was noted to be elevated. Patient lives at home, and her family cares for her. Two days ago they again noted an irregular heart rate. Patient was not feeling well last night. Patient reports she has no dyspnea at rest, but she has worsening dyspnea on exertion these last few days. Patient reports for the last 2 days she is feeling palpitations. The patient is a brittle diabetic, she was only given a half a dose of her insu juan this morning and her breakfast was held in anticipating cardioversion this morning No chest pain, no urinary symptoms, no fevers, no cough, patient is vaccinated for COVID Patient has back pain, she has chronic back pain Granddaughter states there have been some mixup in the medications, and she does not think patient got her amiodarone for the last 2 days. In addition, 2 days ago patient was given 120 mg of Lasix by mistake. She is normally on 40 mg of Lasix daily. <TRINI Calix Last Filed: 05/15/21 14:13> Related Data Home medications: Home Medications Medication Instructions Recorded Confirmed travoprost 0.004 % eye drops iris OPHTHALMIC (EYE) 06/01/20 04/26/21 hydralazine 50 mg tablet 50 mg PO DAILY tab 11/01/20 04/26/21 metolazone 2.5 mg tablet See Rx Instructions PO 03/01/21 04/26/21 DAILY PRN tab omeprazole 20 mg 20 mg PO DAILY cap 03/01/21 04/26/21 capsule,delayed release furosemide 40 mg tablet 40 mg PO BID 04/26/21 04/26/21 Previous Rx's Medication Instructions Recorded insulin lispro 100 unit/mL 6 unit (0.06 mL) SUBCUT TID 90 06/09/20 subcutaneous pen (Humalog KwikPen Days #6 syringe (U-100) Insulin) insulin glargine U-300 conc 300 12 unit (0.04 mL) SUBCUT QAM #3 07/05/20 unit/mL (1.5 mL) subcutaneous pen syringe (Toujeo SoloStar U-300 Insulin) pen needle, diabetic 32 gauge x See Rx Instructions .ROUTE 08/02/20 (BD Eveline 2nd Gen Pen Needle) .COMPLEX 90 Days #500 ea flash glucose sensor (FreeStyle #1 ea 08/28/20 Madeline 14 Day Sensor) simvastatin 10 mg tablet 10 mg PO BEDTIME #90 tab 09/15/20 metoprolol succinate 100 mg 100 mg PO DAILY 90 Days #90 tab 09/30/20 tablet,extended release 24 hr amiodarone 200 mg tablet 100 mg PO DAILY 90 Days #45 tab 11/02/20 lactulose 10 gram/15 mL oral 15 - 30 ml PO DAILY PRN #946 ml 01/04/21 solution hydralazine 10 mg tablet 10 mg PO ONCE PRN 90 Days #90 tab 01/10/21 rivaroxaban 20 mg tablet (Xarelto) 20 mg PO DAILY #90 tab 05/04/21 levothyroxine 125 mcg tablet 125 mcg PO DAILY #90 tab 05/06/21 amiodarone 200 mg tablet 200 mg PO BID 30 Days #60 tab 05/15/21 <TRINI Calix - Last Filed: 05/15/21 14:13> Allergies/adverse reactions: Allergies Allergy/AdvReac Type Severity Reaction Status Date / Time codeine Allergy Intermediate TACHYCARDIA Verified 04/26/21 11:23 nitrofurantoin Allergy Unknown confusion Verified 04/26/21 11:23 [Macrobid] pravastatin Allergy Unknown Unknown Verified 04/26/21 11:23 rosuvastatin Allergy Unknown Unknown Verified 04/26/21 11:23 [Crestor] Sulfa (Sulfonamide Allergy Unknown unknown Verified 04/26/21 11:23 Antibiotics) sulfamethoxazole Allergy Unknown Unknown Verified 04/26/21 11:23 [From Bactrim] trimethoprim [From Allergy Unknown Unknown Verified 04/26/21 11:23 Bactrim] amlodipine AdvReac Intermediate leg Verified 04/26/21 11:23 swelling <Fani Nascimento [place] - Last Filed: 05/15/21 14:13> Review of Systems Verdana 4l Constitutional: Verdana 4d Verdana 4d Constitutional: Verdana 4d Denies body ache(s), Denies chills, Reports fatigue, Denies fever(s), Denies headache(s) and Denies weakness Verdana 4Il <Fani Nascimento [place] - Last Filed: 05/15/21 14:13> Verdana 4d Verdana 4l Eyes: Verdana 4d Verdana 4d Eyes: Verdana 4d Denies diplopia Verdana 4Il <Fani Nascimento [place] - Last Filed: 05/15/21 14:13> Verdana 4d Verdana 4l ENT: Verdana 4d Denies vertigo, Denies dizziness, Denies headache(s) and Denies post nasal drip Verdana 4Il <Fani Nascimento [place] - Last Filed: 05/15/21 14:13> Verdana 4d Verdana 4l Cardiovascular: Verdana 4d Verdana 4d Cardiovascular: Verdana 4d Denies chest pain, Denies syncope, Denies leg edema, Reports lightheadedness, Denies Loss of Consciousness, Reports palpitations, Denies dyspnea and Reports dyspnea on exertion Verdana 4Il <Fani Kauffman [place] - Last Filed: 05/15/21 14:13> Respiratory: Respiratory: Denies chest congestion, Denies cough, Denies dyspnea and Reports dyspnea on exertion <Fani Nascimento [place] - Last Filed: 05/15/21 14:13> Gastrointestinal: Gastrointestinal: Denies abdominal pain, Denies hematochezia, Denies constipation, Denies diarrhea, Denies nausea and Denies vomiting <TRINI Calix - Last Filed: 05/15/21 14:13> Genitourinary: Genitourinary: Denies dysuria, Denies flank pain, Denies urinary incontinence, Denies urinary hesitancy, Denies urinary urgency and Denies vaginal discharge <TRINI Calix - Last Filed: 05/15/21 14:13> Musculoskeletal: Musculoskeletal: Reports no additional musculoskeletal complaints and Reports back pain <TRINI Calix - Last Filed: 05/15/21 14:13> Neurologic: Denies confusion, Denies vertigo, Denies dizziness, Denies syncope, Denies headache(s) and Denies weakness <TRINI Calix - Last Filed: 05/15/21 14:13> Psychiatric: Psychiatric: Denies anxiety, Denies confusion and Denies depression <TRINI Calix - Last Filed: 05/15/21 14:13> Endocrine: Endocrine: Reports fatigue and Reports palpitations <TRINI Calix - Last Filed: 05/15/21 14:13> PMF Past Medical History Medical History: 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 Chronic heart failure with preserved ejection fraction (HFpEF) Degenerative disc disease, lumbar Disc degeneration, lumbar Essential hypertension Hyperkalemia Hypothyroid Iliotibial band syndrome of right side Osteopenia Spinal stenosis of lumbar region Type 2 diabetes mellitus with hyperglycemia <TRINI Calix - Last Filed: 05/15/21 14:13> Surgical History: Surgical History History of appendectomy History of cataract surgery History of section History of cholecystectomy History of eye surgery History of hip replacement History of knee replacement History of removal of cyst <TRINI Calix - Last Filed: 05/15/21 14:13> Family History Family History: Family History Father CVD (cardiovascular disease) Mother CVD (cardiovascular disease) Stroke <TRINI Calix - Last Filed: 05/15/21 14:13> Social History Social History: Social History Household Members: None Housing: House Do you presently have visiting nurse or other home services: No Alcohol intake: never Patient Tobacco Use Status: Never used Tobacco e-Cigarette/Vaping Use: Never Used Second Hand Smoke Exposure: No Use of substances other than those prescribed or required for medical reasons: No Advance Directives: Yes Advance Directives Information Provided: Yes Advance Directives on File: No service: No Current occupational status: retired <TRINI Calix - Last Filed: 05/15/21 14:13> Physical Exam Verdana 4l Vital Signs: Verdana 4d Verdana 4d Vital Signs: Verdana 4d Verdana 4Bd Last Vital Signs Verdana 4d Engineering Lab Technician New 4d Engineering Lab Technician New 4d Temp 97.9 F 05/15/21 13:09 Engineering Lab Technician New 4d Pulse 52 05/15/21 13:09 Engineering Lab Technician New 4d Resp 17 05/15/21 13:09 BP 122/37 L 05/15/21 13:09 Pulse Ox 98 05/15/21 13:09 Oxygen Flow Rate 2 05/15/21 11:38 BMI result Body Mass Index 24.3 <TRINI Calix - Last Filed: 05/15/21 14:13> Vital Signs: Last Vital Signs Temp 97.9 F 05/15/21 13:09 Pulse 52 05/15/21 13:09 Resp 17 05/15/21 13:09 BP 122/37 L 05/15/21 13:09 Pulse Ox 98 05/15/21 13:09 Oxygen Flow Rate 2 05/15/21 11:38 BMI result Body Mass Index 24.3 <Patricio Baig MD - Last Filed: 05/15/21 11:47> Const: General: alert, awake and tired appearing; No confusion <TRINI Calix - Last Filed: 05/15/21 14:13> Nutritional Appearance: thin <TRINI Calix - Last Filed: 05/15/21 14:13> Orientation/consciousness: patient oriented x3 and No confusion <TRINI Calix - Last Filed: 05/15/21 14:13> Limitations: no limitations <TRINI Calix - Last Filed: 05/15/21 14:13> HENMT: Head: Yes normal to inspection, Yes normocephalic and Yes atraumatic <Fani Nascimento [facility] Last Filed: 05/15/21 14:13> Ears: hearing grossly normal bilaterally <Fani Nascimento [facility] Last Filed: 05/15/21 14:13> General nose exam: Normal external nose present <Fani Nascimento [facility] Last Filed: 05/15/21 14:13> Face and sinus: Yes normal facial exam <Fani Nascimento [facility] Last Filed: 05/15/21 14:13> Mouth: Normal oral and palatal mucosa present <Fani Nascimento [place] - Last Filed: 05/15/21 14:13> Throat: Yes posterior oropharynx normal <Fani Nascimento [facility] Last Filed: 05/15/21 14:13> Eyes: Conjunctivae: conjunctivae normal <Fani Nascimento [facility] Last Filed: 05/15/21 14:13> Pupils: Equal, round and reactive pupils present <Fani Nascimento [facility] Last Filed: 05/15/21 14:13> EOM: EOMs intact bilaterally <Fani Nascimento [facility] Last Filed: 05/15/21 14:13> Neck: Neck: Yes full ROM, Yes no lymphadenopathy and Yes supple <Fani Nascimento [facility] Last Filed: 05/15/21 14:13> Resp: Effort & Inspection: normal respiratory effort and able to speak in complete sentences <Fani Nascimento [facility] Last Filed: 05/15/21 14:13> Auscultation: clear to auscultation bilaterally, no crackles, no rales, no rhonchi and no wheezes <Fani Nascimento [facility] Last Filed: 05/15/21 14:13> Cardio: Rate: tachycardic <Fani Nascimento [facility] Last Filed: 05/15/21 14:13> Rhythm: abnormal rhythm regularly irregular <Fani Nascimento [facility] Last Filed: 05/15/21 14:13> GI: Inspection: Yes normal to inspection <Fani Nascimento [facility] Last Filed: 05/15/21 14:13> Palpation (GI): Soft to palpation, nontender, no guarding and not rigid <TRINI Calix - Last Filed: 05/15/21 14:13> Percussion: Yes normal to percussion <TRINI Calix Last Filed: 05/15/21 14:13> Auscultation: normal bowel sounds <TRINI Calix Last Filed: 05/15/21 14:13> Skin: General skin exam: no rashes or lesions noted <TRINI Calix Last Filed: 05/15/21 14:13> Neuro: General: patient oriented x3 and No confusion <TRINI Calix Last Filed: 05/15/21 14:13> Cranial nerves: Yes Equal, round and reactive pupils present <TRINI Vera - Last Filed: 05/15/21 14:13> Extrem: General: Yes normal to inspection and Yes full ROM <TRINI Calix Last Filed: 05/15/21 14:13> Psych: Appearance: grossly normal <TRINI Calix Last Filed: 05/15/21 14:13> Affect: normal affect <TRINI Calix Last Filed: 05/15/21 14:13> Attitude: cooperative <TRINI Calix Last Filed: 05/15/21 14:13> Thought process: Normal thought process present <TRINI Calix Last Filed: 05/15/21 14:13> Course Course Course Narrative: 85-year-old female presents for a fib with RVR. Patient has had several days of feeling palpitations, lightheaded, and generally unwell. There has also been some mixup in her medications at home. Tool Machinist requests cardioversion. On exam, patient is alert and oriented, she appears tired, she is in AFib with RVR. Blood pressure is stable. Patient has been taking her Xarelto regularly, she takes at night. Dr Morrow was consulted and cardioverted patient. Patient converted to sinus bradycardia. Dr. Baig did procedural sedation with propofol Initial trope 12.4, patient's BNP is 982. On March 2021, BNP was 599. Patient's H&H is 10.1 and 30.1. CMP is remarkable for blood glucose of 365, sodium 130, creatinine 1.62. Patient has not had her full dose of insulin today. Patient's INR 1.9. CXR shows Interval resolution of previously documented bilateral diffuse predominantly interstitial airspace disease associated with improved lung expansion since 06/01/2020. No new abnormalities. <TRINI Calix - Last Filed: 05/15/21 14:13> Reevaluation(s) Reevaluation #1: Pt was cardioverted By curb supervisor. I performed the procedural sedation with propofol 3o mg IV (Dr Baig) After cardioversion, patient is feeling much better, she is in sinus rhythm. Dr Morrow so she can go home after a period of observation. He also requested the patient get 200 mg oral amiodarone now which I ordered <TRINI Calix - Last Filed: 05/15/21 14:13> Pt was cardioverted By curb supervisor. I performed the procedural sedation with propofol 3o mg IV <Patricio Baig MD - Last Filed: 05/15/21 11:47> Reevaluation #2: Resting comfortably, pt has remained in sinus. She is eating a sandwich. Dr Cristhian mane texted me and asked to prescribe amiodarone to 200 mg bid. <TRINI Calix - Last Filed: 05/15/21 14:13> Procedures Procedural Sedation Indication: other (cardioversion) <Patricio Baig MD - Last Filed: 05/15/21 11:47> ASA Class: II <Patricio Baig MD - Last Filed: 05/15/21 11:47> Mallampati Class: I <Patricio Baig MD - Last Filed: 05/15/21 11:47> Time of Last PO Intake: 11:46 <Patricio Baig MD - Last Filed: 05/15/21 11:47> Preparation: manager integration applied, pulse oximeter, capnometry used, supplemental O2 applied, suction/airway equipment at bedside and IV secured <Patricio Baig MD - Last Filed: 05/15/21 11:47> IV Propofol dose (mg): 30 <Patricio Baig MD - Last Filed: 05/15/21 11:47> Patient Tolerated Procedure: well <Patricio Baig MD - Last Filed: 05/15/21 11:47> Complications: none <Patricio Baig MD - Last Filed: 05/15/21 11:47> Additional Comments: procedure startd at 11.30 AM propofol given cardioverted recovered at 11 47 AM <Patricio Baig MD - Last Filed: 05/15/21 11:47> Medical Decision Making Lab Data Lab results reviewed: Yes I reviewed the patient's lab results. <TRINI Calix - Last Filed: 05/15/21 14:13> Result diagrams: : 05/15/21 10:31 05/15/21 10:31 <TRINI Calix - Last Filed: 05/15/21 14:13> Labs: Lab Results 05/15/21 05/15/21 05/15/21 Range/Units 10:31 10:31 10:31 WBC 8.4 (4.8-10.8) X10*3/uL RBC 3.22 L (4.20-5.50) X10*6/uL Hgb 10.1 L (12.0-16.0) g/dl Hct 30.1 L (37.0-47.0) % MCV 93.5 (80.0-98.0) fL MCH 31.4 (27.0-33.0) pg MCHC 33.6 (31.0-35.0) g/dl RDW 13.8 (11.0-16.0) % Plt Count 382 D (160-400) X10*3/uL MPV 10.1 (9.4-12.3) fL Immature Gran % (Auto) 0.2 (0.0-0.4) % Neut % (Auto) 68.3 (45-73) % Lymph % (Auto) 17.3 L (20-40) % Bureau % (Auto) 12.0 H (2-11) % Eos % (Auto) 1.4 (0-4) % Baso % (Auto) 0.8 (0-2) % Lymph # (Auto) 1.5 (1.2-4.9) X10*3/uL Bureau # (Auto) 1.0 (0.1-1.2) X10*3/uL Eos # (Auto) 0.1 (0.0-0.4) X10*3/uL Baso # (Auto) 0.1 (0.0-0.2) X10*3/uL Abs Immat Gran (auto) 0.02 (0.00-0.03) X10*3/uL Absolute Neuts (auto) 5.7 (2.0-8.3) x10*3/uL Absolute Nucleated RBC 0.000 (0.0-0.012) X10*3/uL Nucleated RBC % (auto) 0.0 (0.0-0.2) /100WBC PT 21.7 H (9.9-13.0) SEC INR 1.9 H (0.9-1.1) Sodium 130 L (135-145) mmol/L Potassium 4.1 (3.3-5.1) mmol/L Chloride 88 L (96-108) mmol/L Carbon Dioxide 32 H (22-29) mmol/L Anion Gap 14 (12-20) BUN 43 H (9-16) mg/dL Creatinine 1.62 H (0.5-1.4) mg/dL Estim Creat Clear Calc 22.1 Estimated GFR 30 Random Glucose 365 H* (60-115) mg/dL Calcium 9.2 (8.4-10.2) mg/dL Total Bilirubin 0.7 (0.0-1.0) mg/dL AST 13 (5-31) U/L ALT 15 (0-31) U/L Alkaline Phosphatase 82 (39-117) U/L Troponin I High Sens (<3.5-17.0) ng/L B-Natriuretic Peptide (<100) pg/mL Total Protein 6.6 (6.5-8.0) g/dL Albumin 4.1 (3.5-5.0) g/dL 05/15/21 Range/Units 10:31 WBC (4.8-10.8) X10*3/uL RBC (4.20-5.50) X10*6/uL Hgb (12.0-16.0) g/dl Hct (37.0-47.0) % MCV (80.0-98.0) fL MCH (27.0-33.0) pg MCHC (31.0-35.0) g/dl RDW (11.0-16.0) % Plt Count (160-400) X10*3/uL MPV (9.4-12.3) fL Immature Gran % (Auto) (0.0-0.4) % Neut % (Auto) (45-73) % Lymph % (Auto) (20-40) % Bureau % (Auto) (2-11) % Eos % (Auto) (0-4) % Baso % (Auto) (0-2) % Lymph # (Auto) (1.2-4.9) X10*3/uL Bureau # (Auto) (0.1-1.2) X10*3/uL Eos # (Auto) (0.0-0.4) X10*3/uL Baso # (Auto) (0.0-0.2) X10*3/uL Abs Immat Gran (auto) (0.00-0.03) X10*3/uL Absolute Neuts (auto) (2.0-8.3) x10*3/uL Absolute Nucleated RBC (0.0-0.012) X10*3/uL Nucleated RBC % (auto) (0.0-0.2) /100WBC PT (9.9-13.0) SEC INR (0.9-1.1) Sodium (135-145) mmol/L Potassium (3.3-5.1) mmol/L Chloride (96-108) mmol/L Carbon Dioxide (22-29) mmol/L Anion Gap (12-20) BUN (9-16) mg/dL Creatinine (0.5-1.4) mg/dL Estim Creat Clear Calc Estimated GFR Random Glucose (60-115) mg/dL Calcium (8.4-10.2) mg/dL Total Bilirubin (0.0-1.0) mg/dL AST (5-31) U/L ALT (0-31) U/L Alkaline Phosphatase (39-117) U/L Troponin I High Sens 12.4 (<3.5-17.0) ng/L B-Natriuretic Peptide 982 H (<100) pg/mL Total Protein (6.5-8.0) g/dL Albumin (3.5-5.0) g/dL <TRINI Calix - Last Filed: 05/15/21 14:13> Lab Results 05/15/21 05/15/21 05/15/21 Range/Units 10:31 10:31 10:31 WBC 8.4 (4.8-10.8) X10*3/uL RBC 3.22 L (4.20-5.50) X10*6/uL Hgb 10.1 L (12.0-16.0) g/dl Hct 30.1 L (37.0-47.0) % MCV 93.5 (80.0-98.0) fL MCH 31.4 (27.0-33.0) pg MCHC 33.6 (31.0-35.0) g/dl RDW 13.8 (11.0-16.0) % Plt Count 382 D (160-400) X10*3/uL MPV 10.1 (9.4-12.3) fL Immature Gran % (Auto) 0.2 (0.0-0.4) % Neut % (Auto) 68.3 (45-73) % Lymph % (Auto) 17.3 L (20-40) % Bureau % (Auto) 12.0 H (2-11) % Eos % (Auto) 1.4 (0-4) % Baso % (Auto) 0.8 (0-2) % Lymph # (Auto) 1.5 (1.2-4.9) X10*3/uL Bureau # (Auto) 1.0 (0.1-1.2) X10*3/uL Eos # (Auto) 0.1 (0.0-0.4) X10*3/uL Baso # (Auto) 0.1 (0.0-0.2) X10*3/uL Abs Immat Gran (auto) 0.02 (0.00-0.03) X10*3/uL Absolute Neuts (auto) 5.7 (2.0-8.3) x10*3/uL Absolute Nucleated RBC 0.000 (0.0-0.012) X10*3/uL Nucleated RBC % (auto) 0.0 (0.0-0.2) /100WBC PT 21.7 H (9.9-13.0) SEC INR 1.9 H (0.9-1.1) Sodium 130 L (135-145) mmol/L Potassium 4.1 (3.3-5.1) mmol/L Chloride 88 L (96-108) mmol/L Carbon Dioxide 32 H (22-29) mmol/L Anion Gap 14 (12-20) BUN 43 H (9-16) mg/dL Creatinine 1.62 H (0.5-1.4) mg/dL Estim Creat Clear Calc 22.1 Estimated GFR 30 Random Glucose 365 H* (60-115) mg/dL Calcium 9.2 (8.4-10.2) mg/dL Total Bilirubin 0.7 (0.0-1.0) mg/dL AST 13 (5-31) U/L ALT 15 (0-31) U/L Alkaline Phosphatase 82 (39-117) U/L Troponin I High Sens (<3.5-17.0) ng/L B-Natriuretic Peptide (<100) pg/mL Total Protein 6.6 (6.5-8.0) g/dL Albumin 4.1 (3.5-5.0) g/dL 05/15/21 Range/Units 10:31 WBC (4.8-10.8) X10*3/uL RBC (4.20-5.50) X10*6/uL Hgb (12.0-16.0) g/dl Hct (37.0-47.0) % MCV (80.0-98.0) fL MCH (27.0-33.0) pg MCHC (31.0-35.0) g/dl RDW (11.0-16.0) % Plt Count (160-400) X10*3/uL MPV (9.4-12.3) fL Immature Gran % (Auto) (0.0-0.4) % Neut % (Auto) (45-73) % Lymph % (Auto) (20-40) % Bureau % (Auto) (2-11) % Eos % (Auto) (0-4) % Baso % (Auto) (0-2) % Lymph # (Auto) (1.2-4.9) X10*3/uL Bureau # (Auto) (0.1-1.2) X10*3/uL Eos # (Auto) (0.0-0.4) X10*3/uL Baso # (Auto) (0.0-0.2) X10*3/uL Abs Immat Gran (auto) (0.00-0.03) X10*3/uL Absolute Neuts (auto) (2.0-8.3) x10*3/uL Absolute Nucleated RBC (0.0-0.012) X10*3/uL Nucleated RBC % (auto) (0.0-0.2) /100WBC PT (9.9-13.0) SEC INR (0.9-1.1) Sodium (135-145) mmol/L Potassium (3.3-5.1) mmol/L Chloride (96-108) mmol/L Carbon Dioxide (22-29) mmol/L Anion Gap (12-20) BUN (9-16) mg/dL Creatinine (0.5-1.4) mg/dL Estim Creat Clear Calc Estimated GFR Random Glucose (60-115) mg/dL Calcium (8.4-10.2) mg/dL Total Bilirubin (0.0-1.0) mg/dL AST (5-31) U/L ALT (0-31) U/L Alkaline Phosphatase (39-117) U/L Troponin I High Sens 12.4 (<3.5-17.0) ng/L B-Natriuretic Peptide 982 H (<100) pg/mL Total Protein (6.5-8.0) g/dL Albumin (3.5-5.0) g/dL <Patricio Baig MD - Last Filed: 05/15/21 11:47> ECG Data Interpretation: EKG #1, 10:36 Atrial fibrillation with RVR of 105,, QRS 112, QTC 436, left axis deviation, no ST depressions or elevations, no T-wave abnormalities EKG #2, 11:45, post cardioversion Sinus bradycardia at a rate of 51, IA interval 192, QRS 104, QTC 438, left axis deviation, no ST elevation or depression, PVC noted, nonspecific T-wave <TRINI Calix - Last Filed: 05/15/21 14:13> Discharge Plan Discharge Clinical Impression: Atrial fibrillation with rapid ventricular response, Chronic hyponatremia , Hyperglycemia <TRINI Calix - Last Filed: 05/15/21 14:13> Patient Disposition: Home, Self-Care <TRINI Calix - Last Filed: 05/15/21 14:13> Instructions: A-fib (Atrial Fibrillation) (ED) <TRINI Calix - Last Filed: 05/15/21 14:13> Additional Instructions: Please call Dr Morrow on Sunday for a follow up appointment. His number is [phone] In addition call your primary care provider for a follow-up appointment Your prescription of amiodarone has increased to 200 mg twice a day. Please take all your other regular medications <TRINI Calix - Last Filed: 05/15/21 14:13> Prescriptions: New amiodarone 200 mg tablet 200 mg PO BID 30 Days Qty: 60 0RF No Action Touty SoloStar U-300 Insulin 300 unit/mL (1.5 mL) insulin pen 12 unit subcut QAM Qty: 3 11RF Rx Instructions: or as directed pen needle, diabetic [BD Eveline 2nd Gen Pen Needle] 32 gauge x 5/32 needle See Rx Instructions .ROUTE .COMPLEX 90 Days Qty: 500 3RF Rx Instructions: Inject 5-6 times per day; (DME) FreeStyle Madeline 14 Day Sensor Kit See Rx Instructions .ROUTE .MEDSUPPLY Qty: 1 6RF Rx Instructions: Dx: E11.65 As directed, 14 days simvastatin 10 mg tablet 10 mg PO BEDTIME Qty: 90 3RF metoprolol succinate 100 mg tablet extended release 24 hr 100 mg PO DAILY 90 Days Qty: 90 3RF amiodarone 200 mg tablet 100 mg PO DAILY 90 Days Qty: 45 3RF lactulose 10 gram/15 mL solution 15 - 30 ml PO DAILY PRN (Reason: constipation) Qty: 946 3RF hydralazine 10 mg tablet 10 mg PO ONCE PRN (Reason: hypertension) 90 Days Qty: 90 3RF Xarelto 20 mg tablet 20 mg PO DAILY Qty: 90 3RF levothyroxine 125 mcg tablet 125 mcg PO DAILY Qty: 90 2RF travoprost 0.004 % drops ophthalmic (eye) 0RF omeprazole 20 mg capsule,delayed release(DR/EC) 20 mg PO DAILY 0RF insulin lispro [Humalog KwikPen Insulin] 100 unit/mL insulin pen 6 unit subcut TID 90 Days Qty: 6 3RF Rx Instructions: or as directed according to sliding scale hydralazine 50 mg tablet 50 mg PO DAILY 0RF metolazone 2.5 mg tablet See Rx Instructions PO DAILY PRN0RF Rx Instructions: 1 tablet 1-2 times per week PO daily PRN; furosemide 40 mg tablet 40 mg PO BID 0RF <TRINI Calix - Last Filed: 05/15/21 14:13> Referrals: Gene Morrow MD [Physician] - 2 days (cardioverted in ED 05/15/21 for a fib rvr) <TRINI Calix - Last Filed: 05/15/21 14:13>
[2021-05-15 10:56] LABS: B Type Natriuretic Peptide 982 pg/mL (<100); Troponin-I High Sensitivity 12.4 ng/L (<3.5-17.0)
[2021-05-15 11:12] LABS: Alanine Aminotransferase 15 U/L (0-31); Albumin Level 4.1 g/dL (3.5-5.0); Alkaline Phosphatase 82 U/L (39-117); Anion Gap 14 (12-20); Aspartate Amino Transferase 13 U/L (5-31); Bilirubin Total 0.7 mg/dL (0.0-1.0); Blood Urea Nitrogen 43 mg/dL (9-16); Calcium 9.2 mg/dL (8.4-10.2); Carbon Dioxide 32 mmol/L (22-29); Chloride 88 mmol/L (96-108); Creatinine Clr Calc Pharmacy 22.1; Estimated Glomerular Filt Rate 30; Potassium 4.1 mmol/L (3.3-5.1); Sodium 130 mmol/L (135-145); Total Protein 6.6 g/dL (6.5-8.0)
[2021-05-15] MEDS: propofoL 200 MG/20 ML VIAL 100 MG IVPUSH (11:30)
--- NOTE | 2021-05-15 11:40 | PC.NURSE ---
1135 20mg propofol by md cristina 1136 10mg propofol by md cristina 1137 sync @120 by md davis pt back to nsr
--- NOTE | 2021-05-15 11:41 | ECG_ITS ---
Test Reason : cardio version Blood Pressure : / mmHG Vent. Rate : 051 BPM Atrial Rate : 051 BPM P-R Int : 192 ms QRS Dur : 104 ms QT Int : 476 ms P-R-T Axes : 046 -43 004 degrees QTc Int : 438 ms Sinus bradycardia with occasional Premature ventricular complexes Left axis deviation Moderate voltage criteria for LVH, may be normal variant ( R in aVL , Riley product ) Nonspecific ST abnormality Abnormal ECG When compared with ECG of 15-MAY-2021 10:36, Sinus rhythm has replaced Atrial fibrillation Vent. rate has decreased BY [address] less depressed in Lateral leads T wave inversion now evident in Inferior leads Referred By: Fani Nascimento Electronically Signed By:Ulises Talavera
--- NOTE | 2021-05-15 11:45 | P.CONCA_ITS ---
History of Present Illness History of Present Illness Date of Service: 05/15/21 Chief complaint: increase heart rate Narrative: This is a cardiology consultation regarding atrial fibrillation with rapid rate. Patient is well-known to be. We have had frequent phone conversations over the last few days with the patient's daughter. Meds have been adjusted several times. She goes in and out of heart failure as well as dehydration and hence Lasix dose has been increased as well as decreased several times. Metolazone has also been added. It seems that she actually had low blood pressure and increased heart rate in the last couple of days. We thought she might be in atrial fibrillation with rapid rate and hence asked her to come to the ER. Some increasing shortness of breath for the last few days and she has also been feeling dizzy. However prior to that, her daughter thought she was actually dehydrated as she had taken more than usual diuretics. Hence several med changes over the last few days. At baseline, she has paroxysmal atrial fibrillation with previous cardioversions. She also has chronic diastolic congestive heart failure. Review of Systems Verdana 4l Review of Systems: Verdana 4d Yes all other systems are reviewed and are negative Verdana 4l Cardiovascular: Verdana 4d Verdana 4d Cardiovascular: Verdana 4d Reports as per HPI, Reports no additional cardiovascular complaints, Denies acrocyanosis, Denies cool extremities, Denies chest pain, Denies diaphoresis, Denies syncope, Denies claudication, Reports lightheadednesslightheadedness, Denies palpitations and Reports dyspnea Respiratory: Respiratory: Reports dyspnea Neurologic: Denies syncope Endocrine: Endocrine: Denies palpitations [facility] Past Medical History 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 Chronic heart failure with preserved ejection fraction (HFpEF) Degenerative disc disease, lumbar Disc degeneration, lumbar Essential hypertension Hyperkalemia Hypothyroid Iliotibial band syndrome of right side Osteopenia Spinal stenosis of lumbar region Type 2 diabetes mellitus with hyperglycemia Family History Family History Father CVD (cardiovascular disease) Mother CVD (cardiovascular disease) Stroke Surgical History Surgical History History of appendectomy History of cataract surgery History of section History of cholecystectomy History of eye surgery History of hip replacement History of knee replacement History of removal of cyst Social History Social History Household Members: None Housing: House Do you presently have visiting nurse or other home services: No Alcohol intake: never Patient Tobacco Use Status: Never used Tobacco e-Cigarette/Vaping Use: Never Used Second Hand Smoke Exposure: No Use of substances other than those prescribed or required for medical reasons: No Advance Directives: Yes Advance Directives Information Provided: Yes Advance Directives on File: No service: No Current occupational status: retired Meds Allergies Allergy/AdvReac Type Severity Reaction Status Date / Time codeine Allergy Intermediate TACHYCARDIA Verified 04/26/21 11:23 nitrofurantoin Allergy Unknown confusion Verified 04/26/21 11:23 [Macrobid] pravastatin Allergy Unknown Unknown Verified 04/26/21 11:23 rosuvastatin Allergy Unknown Unknown Verified 04/26/21 11:23 [Crestor] Sulfa (Sulfonamide Allergy Unknown unknown Verified 04/26/21 11:23 Antibiotics) sulfamethoxazole Allergy Unknown Unknown Verified 04/26/21 11:23 [From Bactrim] trimethoprim [From Allergy Unknown Unknown Verified 04/26/21 11:23 Bactrim] amlodipine AdvReac Intermediate leg Verified 04/26/21 11:23 swelling Home Medications Medication Instructions Recorded Confirmed Last Taken Type travoprost 0.004 drp OPHTHALMIC 06/01/20 04/26/21 Unknown History % eye drops (EYE) hydralazine 50 mg 50 mg PO DAILY 11/01/20 04/26/21 Unknown History tablet tab metolazone 2.5 mg See Rx 03/01/21 04/26/21 Unknown History tablet Instructions PO DAILY PRN tab omeprazole 20 mg 20 mg PO DAILY 03/01/21 04/26/21 Unknown History capsule,delayed cap release furosemide 40 mg 40 mg PO BID 04/26/21 04/26/21 Unknown History tablet Physical Exam Verdana 4l Vital Signs: Verdana 4d Verdana 4d Vital Signs: Verdana 4d Verdana 4Bd Last Vital Signs Verdana 4d Needle Maker New 4d Needle Maker New 4d Temp 98.3 F 05/15/21 10:13 Needle Maker New 4d Pulse 51 05/15/21 11:42 Needle Maker New 4d Resp 17 05/15/21 11:42 BP 138/48 L 05/15/21 11:42 Pulse Ox 100 05/15/21 11:42 Oxygen Flow Rate 2 05/15/21 11:38 BMI result Body Mass Index 24.3 Const: General: comfortable HENMT: Other: Unremarkable Neck: Neck: Yes normal visual inspection Chest: Chest palpation & inspection: normal inspection of the chest Resp: Auscultation: rales Cardio: Palpation: normal PMI Heart sounds: S1 normal heart sound present, S2 normal heart sound present, no gallops, no murmurs and no rubs GI: Palpation (GI): Soft to palpation Back/Spine/Pelvis: Other: unremarkable Skin: Lesions: other Neuro: General: other Extrem: General: Yes other Psych: Mental Status: other Objective Labs and Meds Result diagrams: 05/15/21 10:31 05/15/21 10:31 Lab results: Laboratory Results - last 24 hr 05/15/21 05/15/21 05/15/21 10:31 10:31 10:31 WBC 8.4 RBC 3.22 L Hgb 10.1 L Hct 30.1 L MCV 93.5 MCH 31.4 MCHC 33.6 RDW 13.8 Plt Count 382 D MPV 10.1 Immature Gran % (Auto) 0.2 Neut % (Auto) 68.3 Lymph % (Auto) 17.3 L Stephens % (Auto) 12.0 H Eos % (Auto) 1.4 Baso % (Auto) 0.8 Lymph # (Auto) 1.5 Stephens # (Auto) 1.0 Eos # (Auto) 0.1 Baso # (Auto) 0.1 Abs Immat Gran (auto) 0.02 Absolute Neuts (auto) 5.7 Absolute Nucleated RBC 0.000 Nucleated RBC % (auto) 0.0 PT 21.7 H INR 1.9 H Sodium 130 L Potassium 4.1 Chloride 88 L Carbon Dioxide 32 H Anion Gap 14 BUN 43 H Creatinine 1.62 H Estim Creat Clear Calc 22.1 Estimated GFR 30 Random Glucose 365 H* Calcium 9.2 Total Bilirubin 0.7 AST 13 ALT 15 Alkaline Phosphatase 82 Troponin I High Sens B-Natriuretic Peptide Total Protein 6.6 Albumin 4.1 05/15/21 10:31 WBC RBC Hgb Hct MCV MCH MCHC RDW Plt Count MPV Immature Gran % (Auto) Neut % (Auto) Lymph % (Auto) Stephens % (Auto) Eos % (Auto) Baso % (Auto) Lymph # (Auto) Stephens # (Auto) Eos # (Auto) Baso # (Auto) Abs Immat Gran (auto) Absolute Neuts (auto) Absolute Nucleated RBC Nucleated RBC % (auto) PT INR Sodium Potassium Chloride Carbon Dioxide Anion Gap BUN Creatinine Estim Creat Clear Calc Estimated GFR Random Glucose Calcium Total Bilirubin AST ALT Alkaline Phosphatase Troponin I High Sens 12.4 B-Natriuretic Peptide 982 H Total Protein Albumin ECG Interpretation: EKG with atrial fibrillation at 105/Min; nonspecific QRS widening. Imaging Radiologist's impression: Impressions Chest X-Ray 05/15/21 11:07 IMPRESSION: Interval resolution of previously documented bilateral diffuse predominantly interstitial airspace disease associated with improved lung expansion since 06/01/2020. No new abnormalities. Assessment and Plan (1) Atrial fibrillation with rapid ventricular response: Status: Acute (2) Acute on chronic diastolic (congestive) heart failure: Status: Inactive Plan Labs are reviewed. Potassium is 4.1. BUN is 43. Creatinine is 1.62. Cardiac BNP is 92. EKG showing atrial fibrillation with rapid rate. We discussed about cardioversion and patient was agreeable. She has been taking Xarelto daily. Last dose was last night. Hence we proceeded with cardioversion in the ER which is documented separately. ER physician gave anesthesia for this. Post cardioversion, she is in sinus bradycardia in the 50s. We will get an EKG. Otherwise, we will also give her an extra dose of amiodarone 200 mg at this time. Further plan to be decided regarding candidacy for atrial fibrillation ablation mainly due to her age and frailty. However, if the alternative is taking higher than usual dose of amiodarone which in turn leads to toxicity, then may need to be pursued. Will discussed with daughter in detail. Otherwise, discussed with a granddaughter who actually came here to the ER. If she feels OK, then potentially dc home after a period of observation. Procedures Date of Service Date of Service: 05/15/21
[2021-05-15] MEDS: Amiodarone HCL 200 MG TABLET PO (12:07)
[2021-05-15 13:03] LABS: Glucose Random 365 mg/dL (60-115)
--- NOTE | 2021-05-15 13:09 | HO.CARDIVERS ---
Cardioversion Procedure Note Cardioversion Date of Procedure: 05/15/2021 Ordering Provider: Performing Provider: Dr. Morrow Indication for Procedure: Atrial fibrillation with congestive heart failure Pre-Op Diagnosis: Atrial fibrillation with rapid rate Post-Op Diagnosis: Sinus rhythm History: Symptomatic atrial fibrillation in spite of amiodarone use. Hence recommended cardioversion. Consent: Informed consent obtained. Procedure: After informed consent was obtained, the patient was positioned appropriately. The cardioversion pads were placed in anteroposterior position. Once under anesthesia (given by ), 120 joules of synchronized shock was administered. The rhythm converted from atrial fibrillation to sinus rhythm. Patient remained in sinus rhythm after the end of procedure. Complications: None Impression: Successful cardioversion from atrial fibrillation sinus rhythm. Recommendations: To be monitored in the ER for a few hours. Disposition to be decided.
== END 2021-05-15 14:34 | disposition home or self-care (01) ==
PROVIDERS: Physician Assistant; Emergency Provider Emergency Medicine; PCP Internal Medicine
DX: I48.20 Chronic atrial fibrillation, unspecified (principal); E87.1 Hypo-osmolality and hyponatremia; E11.65 Type 2 diabetes mellitus with hyperglycemia; I11.0 Hypertensive heart disease with heart failure; I50.32 Chronic diastolic (congestive) heart failure; R06.02 Shortness of breath
CPT/HCPCS: 36415; 71046; 80053; 83880; 84484; 85025; 85610; 93005; 96374; 99284

== ENCOUNTER → 2021-05-23 10:44 | Outpatient (BNVA) | payer MEDICARE, SELFPAY | PROVIDERS: PCP Internal Medicine; Referring Provider Internal Medicine; Visit Provider Internal Medicine | DX: I11.0 Hypertensive heart disease with heart failure (principal); I50.32 Chronic diastolic (congestive) heart failure; I25.10 Atherosclerotic heart disease of native coronary artery without angina pectoris; I48.0 Paroxysmal atrial fibrillation; G47.33 Obstructive sleep apnea (adult) (pediatric); E78.5 Hyperlipidemia, unspecified; E11.8 Type 2 diabetes mellitus with unspecified complications; Z99.89 Dependence on other enabling machines and devices | CPT/HCPCS: 93005; 99212 ==

== ENCOUNTER 2021-06-03 10:00 | Outpatient (REF) | payer MEDICARE, SELFPAY ==
--- NOTE | ~2021-06-03 | CT_ITS ---
EXAMINATION: CT CHEST WITHOUT CONTRAST CLINICAL INFORMATION: Pulmonary fibrosis. COMPARISON: Previous chest x-ray most recent 05/15/2021. TECHNIQUE: Multidetector volumetric CT imaging of the chest was done. Axial MIP volume rendering provided. Sagittal and coronal reformatted images were obtained. This CT examination was performed using dose optimization techniques as appropriate, variously including the following: *Automated exposure control *Adjustment of mA and/or kV according to patient size (this includes techniques or standardized protocols for targeted exams where dose is matched to indication/reason for exam; i.e. extremities or head) *Use of iterative reconstruction technique DLP: 124 mGy-cm FINDINGS: LUNGS: There are two 3 mm peripheral or subpleural right upper lobe nodules axial image 44 series 10. There is atelectasis or scarring in the inferior segment of the lingula, medial segment of the right middle lobe and bilateral lower lobes. No evidence of interstitial lung disease is seen. No evidence of emphysema or bronchiectasis is seen. There is no endobronchial or endotracheal lesion. MEDIASTINUM: The heart is slightly enlarged. There is coronary artery and aortic valve calcification. There are no enlarged hilar or mediastinal lymph nodes. PLEURA: There are small bilateral pleural effusions, right greater than left. AXILLA: There is asymmetric increased breast tissue in the superior right breast. Correlation with clinical exam and mammogram recommended. There are no enlarged axillary lymph nodes. UPPER ABDOMEN: There is fullness of the left adrenal gland. There is severe atherosclerotic disease of the visualized upper abdominal aorta. OSSEOUS STRUCTURES: There are degenerative changes of the spine. CT/CT chest wo con IMPRESSION: Bibasilar subsegmental atelectasis and small bilateral pleural effusions, right greater than left. No evidence of interstitial lung disease. 2 small right upper lobe pulmonary nodules. According to the UPDATED 2017 Fleischner Society recommendations, the advised follow-up imaging for less than 6 mm nodule: Low risk, no chest CT follow-up and high risk, optional chest CT follow-up in one year. Slightly enlarged heart. Coronary artery and aortic valve calcification. Asymmetric increased density in the right upper breast. Correlation with physical exam and mammogram recommended. Fleischner guidelines were followed.
== END 2021-06-03 10:01 | disposition home or self-care (01) ==
LOC: HO.CT 10:00
PROVIDERS: PCP Internal Medicine; Visit Provider Internal Medicine
DX: J84.10 Pulmonary fibrosis, unspecified (principal); J98.4 Other disorders of lung; T46.2X5A Adverse effect of other antidysrhythmic drugs, initial encounter
CPT/HCPCS: 71250

== ENCOUNTER 2021-06-06 16:07 | Outpatient (REF) | payer MEDICARE, SELFPAY ==
[2021-06-06 18:05] LABS: Osmolality Urine 353 mosm/kg (373-1093)
[2021-06-06 18:09] LABS: Anion Gap 16 (12-20); Blood Urea Nitrogen 60 mg/dL (9-16); Carbon Dioxide 31 mmol/L (22-29); Chloride 91 mmol/L (96-108); Estimated Glomerular Filt Rate 21; Potassium 4.4 mmol/L (3.3-5.1); Sodium 134 mmol/L (135-145); Uric Acid 8.9 mg/dL (2.4-5.7)
[2021-06-06 18:10] LABS: Creatinine Urine 44.84 mg/dL
[2021-06-06 18:12] LABS: Total Protein Urine Random 10 mg/dL (<12)
[2021-06-06 18:29] LABS: Thyroid Stimulating Hormone 0.75 uIU/mL (0.32-4.0)
== END 2021-06-06 16:08 | disposition home or self-care (01) ==
LOC: HO.LAB 16:07
PROVIDERS: PCP Internal Medicine; Visit Provider Internal Medicine Hypertension Specialist
DX: E87.1 Hypo-osmolality and hyponatremia (principal); N18.32 Chronic kidney disease, stage 3b
CPT/HCPCS: 36415; 80051; 82310; 82565; 83935; 84156; 84300; 84443; 84520; 84550

== ENCOUNTER 2021-06-09 09:55 | Outpatient (REF) | payer MEDICARE, SELFPAY ==
--- NOTE | ~2021-06-09 | MM_ITS ---
EXAMINATION: MM DIAGNOSTIC DIGITAL BREAST TOMOSYNTHESIS, BILATERAL US DIAGNOSTIC ULTRASOUND BREAST, RIGHT CLINICAL INFORMATION: Age 85. No known family history breast cancer. Due for yearly. History remote benign right stereotactic biopsy performed at outside facility. Recent CT chest notes parenchymal asymmetry upper right breast. TC score under 1%. COMPARISON: Mammography: 03/23/2015, 01/30/2014 TECHNIQUE: Digital breast tomosynthesis is performed in both the craniocaudal and mediolateral oblique views along with computer-aided detection (CAD). Synthesized 2D images are generated from the tomosynthesis. Ultrasound right breast is targeted to the lower anterior breast using grayscale imaging and color Doppler without and with harmonics. FINDINGS: The breasts are heterogeneously dense, which may obscure small masses (ACR BI-RADS breast composition Category c). There are scattered bilateral parenchymal asymmetries similar to prior exams. The regional asymmetry upper right breast is a stable chronic finding. There is no developing density or interval mass or architectural abnormality. Scattered bilateral round and vascular calcifications are present. There are grouped benign heterogeneous coarse calcifications circumferentially arranged mid upper outer right breast consistent with degenerating fibroadenoma. The right breast has a biopsy clip marker anterior 3:30 o'clock position. The right tomography demonstrates a smooth circumscribed nodule just under 1 cm anterior lower quadrant. It is difficult to confirm that the finding is present on prior remote exams which were performed without tomography. Ultrasound lower anterior right breast demonstrates a simple cyst anterior 8:00 position approximately 3 cm from nipple measuring 0.8 cm. Margins are circumscribed and there is increased through-transmission of sound and no associated color flow. No solid component. There is no architectural abnormality or focal duct ectasia in the targeted area. Results are discussed with the patient and her daughter at time of visit. MM/MM tomosynthesis diagnostic BI IMPRESSION: 1. No mammographic evidence of malignancy. 2. Incidental cyst just under 1 cm lower anterior right breast. ASSESSMENT: BI-RADS 2: Benign RECOMMENDATION: Routine annual mammography screening. This patient's information was entered into a reminder system with a target due date for their next mammogram.
== END 2021-06-09 09:56 | disposition home or self-care (01) ==
LOC: HO.MAMMO 09:55
PROVIDERS: Visit Provider Internal Medicine
DX: N64.89 Other specified disorders of breast (principal)
CPT/HCPCS: 76642; 77062; 77066

== ENCOUNTER → 2021-07-05 10:25 | Outpatient (REF) | payer MEDICARE, SELFPAY ==
--- NOTE | 2021-07-05 10:34 | CA_ITS ---
Transthoracic Echocardiogram Patient (Last, First, Middle): Gerri Sanchez R Gender: Female Date of : 1935 Age: 85 Procedure Date: 07/05/2021 Procedure Type: Transthoracic Echocardiogram Location: OP Height: 149.86 cm Weight: 58.97 kg BSA: 1.54 m2 Heart Rate: bpm BP: 135 / 55 mmHg Commercial Litigation Attorney: VH/OT Referring MD: Gene Morrow MD Symptoms: I50.32 - Chronic diastolic (congestive) heart failure Study Quality: Fair ECG Rhythm: Sinus Conclusions: - The left ventricular systolic function is normal. The visually estimated ejection fraction is between 55-60%. - Evidence suggests grade II (moderate) diastolic dysfunction. - Moderately increased right ventricular cavity size. - There is mild to moderate mitral valve regurgitation. - Moderate pulmonary hypertension is present. - The inferior vena cava is mildly dilated and collapses less than 50% with inspiration. Findings Left Ventricle Normal left ventricular cavity size. There is normal left ventricular wall thickness. The left ventricular systolic function is normal. The visually estimated ejection fraction is between 55-60%. There is no evidence of regional wall motion abnormalities. E/E prime ratio is >15, consistent with elevated filling pressures. Evidence suggests grade II (moderate) diastolic dysfunction. Possible basal inferior hypokinesis. Right Ventricle Moderately increased right ventricular cavity size. There is normal right ventricular systolic function. Atria The left atrium is moderately dilated. The right atrium is normal in size. Aortic Valve There is mild calcification of the aortic valve. There is mild thickening of the aortic valve. There is no aortic valve stenosis. The mean gradient is 6 mmHg. There is no aortic valve regurgitation. Mitral Valve There is mild mitral annular calcification. There is mild to moderate mitral valve regurgitation. There is no mitral valve stenosis. Pulmonic Valve The pulmonic valve was not well visualized. Tricuspid Valve There is mild tricuspid valve regurgitation. The right ventricular systolic pressure is 66 mmHg. Moderate pulmonary hypertension is present. Great Vessels The asc aorta is normal in size. Small plaque is seen in the sino tubular ridge. Venous The inferior vena cava is mildly dilated and collapses less than 50% with inspiration. There is evidence of a dilated coronary sinus. Pericardium/Pleural There is no evidence of pericardial effusion. Prior Study Comparison Changes noted compared to prior study dated: 06/01/2020. Increase in RVSP. Measurements 2D Linear Measurements IVSd: 0.89 0.6-0.9/0.6-1.0 cm LVIDd: 4.33 3.9-5.3/4.2-5.9 cm LVIDd Index: 2.81 2.4-3.2/2.2-3.1 cm/m2 LVIDs: 3.11 2.0-3.6 cm LVPWd: 0.91 0.7-1.1 cm LA Diam: 4.10 2.7-3.8/3.0-4.0 cm LAIDs Index: 2.66 1.5-2.3 cm/m2 LV Mass: 155.36 67-162/88-224 g LV Mass Index: 100.89 43-95/49-115 g/m2 LVOT Diam: 2.10 3.0+(-)1.3 cm 2D Systolic Function EF 4C: 53.80 >55% EF 2C: 51.90 >55% EF BiP: 52.00 >55% Mitral Valve MV Pk E: 1.29 MV PK A: 0.50 MV Decel Time: 159.00 E/A: 2.60 E'Lateral: 6.42 E'Medial: 4.79 E/E' Med: 26.90 E/E' Lat: 20.10 PHT: 47.00 MVA PHT: 4.68 Decel Colquitt: 8.08 MR Vol - PW Dopp: 35.40 MR VTI: 2.36 MR ERO: 15.00 MR Alias Nick: 0.40 MR RAD: 0.60 Aortic Valve AoV Pk Nick: 1.69 AoV Mn Nick: 1.19 AoV VTI: 0.48 AoV Pk Grad: 11.00 Aov Mn Grad: 6.00 ZECHARIAH Cont.VTI: 1.62 LVOT LVOT Pk Nick: 0.87 LVOT Mn Nick: 0.57 LVOT VTI: 0.22 LVOT Pk Grad: 3.00 LVOT Mn Grad: 1.00 LVOT Diam: 2.10 LVOT Area: 3.46 Diastolic Function MV Pk E: 1.29 MV Pk A: 0.50 E/A: 2.60 E'Medial: 4.79 E/E' Med: 26.90 E' Laterial: 6.42 E/E' Lat: 20.10 Right Ventricle TAPSE (mm): 21.00 TVS' Nick: 11.00 Tricuspid Valve TR Pk Nick: 3.57 TR Pk Grad: 51.00 RA Press: 15.00 RVSP: 66.00 Great Vessels Aorta Sinus of Valsalva: 2.80 2.0-3.5 cm Ao Asc: 3.00 2.1-3.4 cm Pulmonary Valve PV Pk Nick: 0.65 Peak PV Grad: 2.00 Updated in Other Vendor System with Status of Final Gene Morrow MD electronically signed on 07/07/2021 2:35:05 PM with status of Final
[2021-07-05 12:22] LABS: Anion Gap 12 (12-20); Blood Urea Nitrogen 52 mg/dL (9-16); Calcium 9.6 mg/dL (8.4-10.2); Carbon Dioxide 32 mmol/L (22-29); Chloride 98 mmol/L (96-108); Estimated Glomerular Filt Rate 28; Glucose Random 213 mg/dL (60-115); Potassium 4.1 mmol/L (3.3-5.1); Sodium 138 mmol/L (135-145)
== END ==
LOC: HO.CARD 10:25
PROVIDERS: Absent Provider Internal Medicine Hypertension Specialist; PCP Internal Medicine; Visit Provider Internal Medicine
DX: I50.32 Chronic diastolic (congestive) heart failure (principal); N18.32 Chronic kidney disease, stage 3b
CPT/HCPCS: 36415; 80048; 93306

== ENCOUNTER → 2021-08-08 10:27 | Outpatient (BNVA) | payer MEDICARE, SELFPAY | PROVIDERS: PCP Internal Medicine; Referring Provider Internal Medicine; Visit Provider Internal Medicine | DX: I11.0 Hypertensive heart disease with heart failure (principal); I50.32 Chronic diastolic (congestive) heart failure; I25.10 Atherosclerotic heart disease of native coronary artery without angina pectoris; E87.5 Hyperkalemia; I48.91 Unspecified atrial fibrillation; Z79.899 Other long term (current) drug therapy | CPT/HCPCS: 93005; 99212 ==

== ENCOUNTER 2021-08-17 04:10 | Inpatient (IN) | payer MEDICARE, SELFPAY ==
[2021-08-17] VITALS (12 sets, daily range): BP systolic 134–197; BP diastolic 35–81; PULSE 55–65; RESP 16–24; TEMP 36.8–37.1; O2SAT 81–100; BMI 27.3
--- NOTE | 2021-08-17 | ECG_ITS ---
Test Reason : sob Blood Pressure : / mmHG Vent. Rate : 065 BPM Atrial Rate : 066 BPM P-R Int : 190 ms QRS Dur : 132 ms QT Int : 452 ms P-R-T Axes : 076 -39 093 degrees QTc Int : 470 ms Normal sinus rhythm Left axis deviation Left ventricular hypertrophy with QRS widening and repolarization abnormality ( R in aVL , Riley product ) Abnormal ECG When compared with ECG of 17-AUG-2021 04:56, Premature atrial complexes are no longer Present Incomplete left bundle branch block is no longer Present Referred By: Esau Dietz Electronically Signed By:MATTEO CARNEY MD
--- NOTE | ~2021-08-17 | XR_ITS ---
EXAMINATION: XR CHEST CLINICAL INFORMATION: Short of breath COMPARISON: 05/15/2021 TECHNIQUE: Frontal view of the chest was obtained. FINDINGS: The lungs are well expanded. Small right pleural effusion. Diffuse interstitial prominence. No pneumothorax. The cardiomediastinal silhouette is normal in size with a calcified aorta. XR/XR chest 1V IMPRESSION: Small right pleural effusion. Diffuse interstitial prominence suggestive of edema.
[2021-08-17 04:42] LABS: COVID-19 Test Positive (Negative)
--- NOTE | 2021-08-17 04:50 | ECG_ITS ---
Test Reason : UPPER RESPIRATORY Blood Pressure : / mmHG Vent. Rate : 064 BPM Atrial Rate : 064 BPM P-R Int : 166 ms QRS Dur : 112 ms QT Int : 462 ms P-R-T Axes : 020 -43 061 degrees QTc Int : 476 ms Possible Normal sinus rhythm with Premature atrial complexes Left axis deviation Incomplete left bundle branch block Left ventricular hypertrophy with repolarization abnormality ( R in aVL , Riley product ) Abnormal ECG When compared with ECG of 15-MAY-2021 11:45, T wave inversion no longer evident in Inferior leads T wave inversion now evident in Lateral leads Referred By: Jaja Mckenna Electronically Signed By:MATTEO CARNEY MD
--- NOTE | 2021-08-17 05:01 | ED.URI ---
HPI - URI/Sore Throat General Chief Complaint: Upper Respiratory Symptoms Stated Complaint: sob Time Seen by Provider: 08/17/21 04:48 Source: patient and EMS Mode of arrival: EMS Limitations: no limitations History of Present Illness HPI Narrative: Patient comes to the emergency room complaining of shortness of breath. Patient states that yesterday she went to sleep perfectly fine. Today, while she was sleeping, patient woke up from her sleep with shortness of breath. Every time that she tied taking a few steps, the shortness of breath kept getting worse. Patient denies chest pain. Patient's family reports that they had a alliance party for the patient yesterday, it was her birthday. Also, patient gained 5 lb in the last few days. Patient does have history of CHF. Related Data Home Medications Medication Instructions Recorded Confirmed travoprost 0.004 % eye drops drp OPHTHALMIC (EYE) 06/01/20 08/08/21 hydralazine 50 mg tablet 50 mg PO DAILY tab 11/01/20 08/08/21 metolazone 2.5 mg tablet See Rx Instructions PO DAILY PRN 03/01/21 08/08/21 tab omeprazole 20 mg capsule,delayed 20 mg PO DAILY cap 03/01/21 08/08/21 release furosemide 80 mg tablet mg PO PRN 08/08/21 08/08/21 hydralazine 25 mg tablet 25 mg PO BEDTIME tab 08/08/21 08/08/21 metolazone 2.5 mg tablet See Rx Instructions PO .COMPLEX 08/08/21 08/08/21 Previous Rx's Medication Instructions Recorded insulin lispro 100 unit/mL 6 unit (0.06 mL) SUBCUT TID 90 06/09/20 subcutaneous pen (Humalog Days #6 syringe (U-100) Insulin) insulin glargine U-300 conc 300 12 unit (0.04 mL) SUBCUT QAM #3 07/05/20 unit/mL (1.5 mL) subcutaneous pen syringe (Toujeo SoloStar U-300 Insulin) pen needle, diabetic 32 gauge x See Rx Instructions .ROUTE 08/02/20 (BD Eveline 2nd Gen Pen Needle) .COMPLEX 90 Days #500 ea flash glucose sensor (FreeStyle #1 ea 08/28/20 Madeline 14 Day Sensor) lactulose 10 gram/15 mL oral 15 - 30 ml PO DAILY PRN #946 ml 01/04/21 solution levothyroxine 125 mcg tablet 125 mcg PO DAILY #90 tab 05/06/21 amiodarone 200 mg tablet 200 mg PO DAILY 90 Days #90 tab 05/23/21 furosemide 40 mg tablet 40 mg PO BID 90 Days #180 tab 07/12/21 metoprolol succinate 100 mg 100 mg PO DAILY 90 Days #90 tab 07/12/21 tablet,extended release 24 hr simvastatin 10 mg tablet 10 mg PO BEDTIME #90 tab 07/12/21 rivaroxaban 15 mg tablet (Xarelto) 15 mg PO QPM #90 tab 08/08/21 Allergies Allergy/AdvReac Type Severity Reaction Status Date / Time codeine Allergy Intermediate TACHYCARDIA Verified 08/08/21 10:29 nitrofurantoin [Macrobid] Allergy Unknown confusion Verified 08/08/21 10:29 pravastatin Allergy Unknown Unknown Verified 08/08/21 10:29 rosuvastatin [Crestor] Allergy Unknown Unknown Verified 08/08/21 10:29 Sulfa (Sulfonamide Allergy Unknown unknown Verified 08/08/21 10:29 Antibiotics) sulfamethoxazole Allergy Unknown Unknown Verified 08/08/21 10:29 [From Bactrim] trimethoprim [From Bactrim] Allergy Unknown Unknown Verified 08/08/21 10:29 amlodipine AdvReac Intermediate leg Verified 08/08/21 10:29 swelling Review of Systems Review of Systems: Constitutional : No Weight loss, No Fever, No Chills, No Night Sweats, No Fatigue, No Malaise ENT/Mouth : No Hearing loss, No Ear Pain, No Nasal Congestion, No Sinus Pain, No Hoarseness, No sore throat, No Rhinorrhea, No Swallowing Difficulty Eyes: No Eye Pain, No Swelling, No Redness, No Foreign Body, No Discharge, No Vision Changes Cardiovascular : No Chest Pain, complaining of 5 lb weight gain, complaining with shortness of breath on exertion and lying flat Respiratory : No Cough, No Sputum, No Wheezing, No Smoke Exposure Gastrointestinal : No Nausea, No Vomiting, No Diarrhea, No Constipation, No abdominal Pain, No Hematochezia, No Melena Genitourinary : no irregular bleeding, No Dysuria, No Urinary Frequency, No Hematuria, No Urinary Incontinence, No Urgency, No Flank Pain, No Urinary Flow Changes, No Hesitancy Musculoskeletal : No joint pain, No Myalgias, No Joint Swelling Skin : No Skin Lesions, No rash Neuro : No Weakness, No Numbness, No Paresthesias, No Loss of Consciousness, No Dizziness, No Headache Psych : No Anxiety/Panic, No Depression, No SI/HI/AH/VH, No Social Issues, Heme/Lymph: No Bruising, No Bleeding,No Lymphadenopathy Endocrine : No Polyuria, No Polydipsia, No Temperature Intolerance [facility] Past Medical History 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 Chronic heart failure with preserved ejection fraction (HFpEF) Degenerative disc disease, lumbar Disc degeneration, lumbar Essential hypertension Hyperkalemia Hypothyroid Iliotibial band syndrome of right side Osteopenia Spinal stenosis of lumbar region Type 2 diabetes mellitus with hyperglycemia Surgical History History of appendectomy History of cataract surgery History of section History of cholecystectomy History of eye surgery History of hip replacement History of knee replacement History of removal of cyst Family History Family History Father CVD (cardiovascular disease) Mother CVD (cardiovascular disease) Stroke Social History Social History Household Members: None Housing: House Do you presently have visiting nurse or other home services: No Alcohol intake: never Patient Tobacco Use Status: Never used Tobacco e-Cigarette/Vaping Use: Never Used Second Hand Smoke Exposure: No Use of substances other than those prescribed or required for medical reasons: No Any prior treatment program specific to substance use: No Advance Directives: No service: No Current occupational status: retired Physical Exam Vital Signs: Vital Signs: Last Vital Signs Temp 98.7 F 08/17/21 04:20 Pulse 62 08/17/21 06:00 Resp 22 H 08/17/21 06:00 BP 158/41 H 08/17/21 06:00 Pulse Ox 95 08/17/21 06:00 Oxygen Flow Rate 2 08/17/21 04:20 BMI result Body Mass Index 27.3 Const: Other: Appearance: Alert. Oriented X3. No acute distress. Eyes: Pupils equal, round and reactive to light. ENT: Pharynx normal. Neck: Normal inspection. Neck supple. No lymph nodes noted. No crepitus CVS: Normal heart rate and rhythm. Pulses normal. Normal S1 and S2 Respiratory: No respiratory distress. Breath sounds normal. No Wheezing. No rales Abdomen: Soft and nontender. No rigidity. No distention. Skin: Skin warm and dry. Normal skin color. Normal skin turgor. Extremities: No lower extremity edema. No Lacerations. No Rash Neuro: Oriented X 3. No motor deficit. No sensory deficit. Moving all extremities. No slurred speech. CN 2 through 12 grossly intact Psych: calm, cooperative, normal affect Course Course Course Narrative: With minimal exertion, patient's oxygen saturation drops to the high 80s. Patient does not use oxygen at home. Patient tested positive for COVID-19. Patient states that she has been immunized and also has a booster Labs are pending Patient's BNP is elevated, patient received 40 mg of IV Lasix. MDM - URI/Sore Throat Lab Data Result diagrams: 08/17/21 05:23 08/17/21 05:23 Labs: Lab Results 08/17/21 08/17/21 08/17/21 Range/Units 04:30 05:22 05:23 WBC 7.8 (4.8-10.8) X10*3/uL RBC 3.30 L (4.20-5.50) X10*6/uL Hgb 9.3 L (12.0-16.0) g/dl Hct 28.1 L (37.0-47.0) % MCV 85.2 (80.0-98.0) fL MCH 28.2 (27.0-33.0) pg MCHC 33.1 (31.0-35.0) g/dl RDW 17.7 H (11.0-16.0) % Plt Count 237 D (160-400) X10*3/uL MPV 10.9 (9.4-12.3) fL Immature Gran % (Auto) 0.4 (0.0-0.4) % Neut % (Auto) 80.4 H (45-73) % Lymph % (Auto) 6.8 L (20-40) % [place] % (Auto) 11.2 H (2-11) % Eos % (Auto) 0.4 (0-4) % Baso % (Auto) 0.8 (0-2) % Lymph # (Auto) 0.5 L (1.2-4.9) X10*3/uL [place] # (Auto) 0.9 (0.1-1.2) X10*3/uL Eos # (Auto) 0.0 (0.0-0.4) X10*3/uL Baso # (Auto) 0.1 (0.0-0.2) X10*3/uL Abs Immat Gran (auto) 0.03 (0.00-0.03) X10*3/uL Absolute Neuts (auto) 6.3 (2.0-8.3) x10*3/uL Absolute Nucleated RBC 0.000 (0.0-0.012) X10*3/uL Nucleated RBC % (auto) 0.0 (0.0-0.2) /100WBC VBG pH 7.46 H (7.32-7.43) VBG pCO2 41 mmHg VBG pO2 66 mmHg VBG HCO3 29 H (22-26) mmol/L VBG O2 Saturation 89.0 % VBG Base Excess 5.3 mmol/L Sodium (135-145) mmol/L Potassium (3.3-5.1) mmol/L Chloride (96-108) mmol/L Carbon Dioxide (22-29) mmol/L Anion Gap (12-20) BUN (9-16) mg/dL Creatinine (0.5-1.4) mg/dL Estim Creat Clear Calc Estimated GFR Random Glucose (60-115) mg/dL Calcium (8.4-10.2) mg/dL Magnesium (1.6-2.6) mg/dL Total Bilirubin (0.0-1.0) mg/dL Direct Bilirubin (0.0-0.5) mg/dL AST (5-31) U/L ALT (0-31) U/L Alkaline Phosphatase (39-117) U/L Troponin I High Sens (<3.5-17.0) ng/L B-Natriuretic Peptide (<100) pg/mL Total Protein (6.5-8.0) g/dL Albumin (3.5-5.0) g/dL COVID-19 (LING) Positive A (Negative) COVID-19 Clin Com See Note 08/17/21 08/17/21 08/17/21 Range/Units 05:23 05:23 05:23 WBC (4.8-10.8) X10*3/uL RBC (4.20-5.50) X10*6/uL Hgb (12.0-16.0) g/dl Hct (37.0-47.0) % MCV (80.0-98.0) fL MCH (27.0-33.0) pg MCHC (31.0-35.0) g/dl RDW (11.0-16.0) % Plt Count (160-400) X10*3/uL MPV (9.4-12.3) fL Immature Gran % (Auto) (0.0-0.4) % Neut % (Auto) (45-73) % Lymph % (Auto) (20-40) % [place] % (Auto) (2-11) % Eos % (Auto) (0-4) % Baso % (Auto) (0-2) % Lymph # (Auto) (1.2-4.9) X10*3/uL [place] # (Auto) (0.1-1.2) X10*3/uL Eos # (Auto) (0.0-0.4) X10*3/uL Baso # (Auto) (0.0-0.2) X10*3/uL Abs Immat Gran (auto) (0.00-0.03) X10*3/uL Absolute Neuts (auto) (2.0-8.3) x10*3/uL Absolute Nucleated RBC (0.0-0.012) X10*3/uL Nucleated RBC % (auto) (0.0-0.2) /100WBC VBG pH (7.32-7.43) VBG pCO2 mmHg VBG pO2 mmHg VBG HCO3 (22-26) mmol/L VBG O2 Saturation % VBG Base Excess mmol/L Sodium 135 (135-145) mmol/L Potassium 4.6 (3.3-5.1) mmol/L Chloride 96 (96-108) mmol/L Carbon Dioxide 26 (22-29) mmol/L Anion Gap 18 (12-20) BUN 55 H (9-16) mg/dL Creatinine 1.59 H (0.5-1.4) mg/dL Estim Creat Clear Calc 21.5 Estimated GFR 31 Random Glucose 261 H (60-115) mg/dL Calcium 9.3 (8.4-10.2) mg/dL Magnesium 2.5 (1.6-2.6) mg/dL Total Bilirubin 0.4 (0.0-1.0) mg/dL Direct Bilirubin 0.2 (0.0-0.5) mg/dL AST 32 H D (5-31) U/L ALT 32 H (0-31) U/L Alkaline Phosphatase 84 (39-117) U/L Troponin I High Sens 28.2 H D (<3.5-17.0) ng/L B-Natriuretic Peptide 1029 H (<100) pg/mL Total Protein 7.0 (6.5-8.0) g/dL Albumin 4.2 (3.5-5.0) g/dL COVID-19 (LING) (Negative) COVID-19 Clin Com Imaging Data Chest x-ray: Radiologist's impression: The lungs are well expanded. Small right pleural effusion. Diffuse interstitial prominence. No pneumothorax. The cardiomediastinal silhouette is normal in size with a calcified aorta. XR/XR chest 1V IMPRESSION: Small right pleural effusion. Diffuse interstitial prominence suggestive of edema. Discharge Plan Discharge Clinical Impression: COVID-19, CHF exacerbation Patient Disposition: Admitted As Inpatient Prescriptions: No Action Everette Meeks U-300 Insulin 300 unit/mL (1.5 mL) insulin pen 12 unit subcut QAM Qty: 3 11RF Rx Instructions: or as directed pen needle, diabetic [BD Eveline 2nd Gen Pen Needle] 32 gauge x 5/32 needle See Rx Instructions .ROUTE .COMPLEX 90 Days Qty: 500 3RF Rx Instructions: Inject 5-6 times per day; (DME) FreeStyle Madeline 14 Day Sensor Kit See Rx Instructions .ROUTE .MEDSUPPLY Qty: 1 6RF Rx Instructions: Dx: E11.65 As directed, 14 days lactulose 10 gram/15 mL solution 15 - 30 ml PO DAILY PRN (Reason: constipation) Qty: 946 3RF levothyroxine 125 mcg tablet 125 mcg PO DAILY Qty: 90 2RF furosemide 40 mg tablet 40 mg PO BID 90 Days Qty: 180 3RF simvastatin 10 mg tablet 10 mg PO BEDTIME Qty: 90 3RF metoprolol succinate 100 mg tablet extended release 24 hr 100 mg PO DAILY 90 Days Qty: 90 3RF Xarelto 15 mg tablet 15 mg PO QPM Qty: 90 3RF Rx Instructions: must administer with evening meal travoprost 0.004 % drops ophthalmic (eye) 0RF omeprazole 20 mg capsule,delayed release(DR/EC) 20 mg PO DAILY 0RF insulin lispro [Humalog KwikPen Insulin] 100 unit/mL insulin pen 6 unit subcut TID 90 Days Qty: 6 3RF Rx Instructions: or as directed according to sliding scale hydralazine 50 mg tablet 50 mg PO DAILY 0RF metolazone 2.5 mg tablet See Rx Instructions PO DAILY PRN0RF Rx Instructions: 1 tablet 1-2 times per week PO daily PRN; amiodarone 200 mg tablet 200 mg PO DAILY 90 Days Qty: 90 3RF hydralazine 25 mg tablet 25 mg PO BEDTIME 0RF metolazone 2.5 mg tablet See Rx Instructions PO .COMPLEX 0RF Rx Instructions: 1/2 tablet 1-2 times per week PO; furosemide 80 mg tablet PO PRN0RF
[2021-08-17 05:27] LABS: Basophils Absolute Auto 0.1 X10*3/uL (0.0-0.2); Basophils Percent Auto 0.8 % (0-2); Eosinophils Percent Auto 0.4 % (0-4); Hematocrit 28.1 % (37.0-47.0); Hemoglobin 9.3 g/dl (12.0-16.0); Imm Gran Abs Auto 0.03 X10*3/uL (0.00-0.03); Imm Gran Pct Auto 0.4 % (0.0-0.4); Lymphocytes Absolute Auto 0.5 X10*3/uL (1.2-4.9); Lymphocytes Percent Auto 6.8 % (20-40); MANUAL DIFF FLAG NO; Mean Corpuscular HGB Conc 33.1 g/dl (31.0-35.0); Mean Corpuscular Hemoglobin 28.2 pg (27.0-33.0); Mean Corpuscular Volume 85.2 fL (80.0-98.0); Mean Platelet Volume 10.9 fL (9.4-12.3); Monocytes Absolute Auto 0.9 X10*3/uL (0.1-1.2); Monocytes Percent Auto 11.2 % (2-11); Neutrophils Absolute Auto 6.3 x10*3/uL (2.0-8.3); Neutrophils Percent Auto 80.4 % (45-73); Platelet Count 237 X10*3/uL (160-400); Red Cell Distribution Width 17.7 % (11.0-16.0); White Blood Count 7.8 X10*3/uL (4.8-10.8)
[2021-08-17 05:30] LABS: Venous Blood Gas Refer to POC result
[2021-08-17 05:31] LABS: VBG Base Excess 5.3 mmol/L; VBG HCO3 29 mmol/L (22-26); VBG pCO2 41 mmHg; VBG pH 7.46 (7.32-7.43); VBG pO2 66 mmHg
[2021-08-17 05:45] LABS: B Type Natriuretic Peptide 1029 pg/mL (<100); Troponin-I High Sensitivity 28.2 ng/L (<3.5-17.0)
[2021-08-17 05:55] LABS: Alanine Aminotransferase 32 U/L (0-31); Albumin Level 4.2 g/dL (3.5-5.0); Alkaline Phosphatase 84 U/L (39-117); Anion Gap 18 (12-20); Aspartate Amino Transferase 32 U/L (5-31); Bilirubin Direct 0.2 mg/dL (0.0-0.5); Bilirubin Total 0.4 mg/dL (0.0-1.0); Blood Urea Nitrogen 55 mg/dL (9-16); Calcium 9.3 mg/dL (8.4-10.2); Carbon Dioxide 26 mmol/L (22-29); Chloride 96 mmol/L (96-108); Creatinine Clr Calc Pharmacy 21.5; Estimated Glomerular Filt Rate 31; Glucose Random 261 mg/dL (60-115); Magnesium 2.5 mg/dL (1.6-2.6); Potassium 4.6 mmol/L (3.3-5.1); Sodium 135 mmol/L (135-145)
[2021-08-17] MEDS: Furosemide 40 MG/4 ML VIAL IVPUSH (06:38)
[2021-08-17 08:09] LABS: Glucose, Whole Blood 312 mg/dL (60-115)
[2021-08-17] MEDS: Insulin Lispro 100 UNIT/ML 3 ML VIAL SUBCUT ×3 (08:57→21:06)
[2021-08-17] MEDS: ondansetron HCL 4 MG/2 ML VIAL IVPUSH (08:57)
[2021-08-17 09:09] LABS: Troponin-I High Sensitivity 60.3 ng/L (<3.5-17.0)
--- NOTE | 2021-08-17 09:34 | P.HPHOSP_ITS ---
History of Present Illness Date of Service: 08/17/21 Chief Complaint: shortness of breath This is an 86 yo F with multiple medical problems including PAF on amio/xarelto, HFpEF, hypothyroidism, DM, HTN, amongst others who presents to the ED with sudden onset shortness of breath which woke her up from sleep. The history of obtained from the patient and her daughter (Yue Yang @ [phone]). The patient was in her usual state of health up until the evening prior to admission where she reported some chills. SHe went to bed and at some point overnight, she became short of breath and hence was brought to the ED. The patient is unable to state if her dyspnea was positional or not. She does endorse a weight gain. Her baseline weight is about 129 and when checked the day before admission it was 135. She checks her weight daily. Her daughter reports that the weakened [employer] (3- 4 days ago), there was a birthday celebration for the patient and she did consume foods with a higher salt content than normal. In regards to her COVID vaccination -- she has received 2 doses + booster (in Feb 2021) of mRNA vaccine. The family has since found out that 2 other people from the weekend gathering have tested positive. The patients main complaint currently is of nausea. She denies chest pain and her breathing has only marginally improved since arrival. In the ED, her work up revealed a positive covid test, elevated BNP (>1000), a cxr consistent with edema. She was noted to be hypoxic down to 88% initially and placed on 2L. While I was in the room, she desaturated to 81% on room air. She has been placed on 2L NC with improvement of sats in the mid 90s. She has been given a dose of IV lasix. She will be started on covid treatment and admitted for further care. 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 Chronic heart failure with preserved ejection fraction (HFpEF) Degenerative disc disease, lumbar Disc degeneration, lumbar Essential hypertension Hyperkalemia Hypothyroid Iliotibial band syndrome of right side Osteopenia Spinal stenosis of lumbar region Type 2 diabetes mellitus with hyperglycemia Family History Father CVD (cardiovascular disease) Mother CVD (cardiovascular disease) Stroke Surgical History History of appendectomy History of cataract surgery History of section History of cholecystectomy History of eye surgery History of hip replacement History of knee replacement History of removal of cyst Social History Household Members: None Housing: House Do you presently have visiting nurse or other home services: No Alcohol intake: never Patient Tobacco Use Status: Never used Tobacco e-Cigarette/Vaping Use: Never Used Second Hand Smoke Exposure: No Use of substances other than those prescribed or required for medical reasons: No Any prior treatment program specific to substance use: No Advance Directives: No service: No Current occupational status: retired [email or web address] Allergies Allergy/AdvReac Type Severity Reaction Status Date / Time codeine Allergy Intermediate TACHYCARDIA Verified 08/08/21 10:29 nitrofurantoin [Macrobid] Allergy Unknown confusion Verified 08/08/21 10:29 pravastatin Allergy Unknown Unknown Verified 08/08/21 10:29 rosuvastatin [Crestor] Allergy Unknown Unknown Verified 08/08/21 10:29 Sulfa (Sulfonamide Allergy Unknown unknown Verified 08/08/21 10:29 Antibiotics) sulfamethoxazole Allergy Unknown Unknown Verified 08/08/21 10:29 [From Bactrim] trimethoprim [From Bactrim] Allergy Unknown Unknown Verified 08/08/21 10:29 amlodipine AdvReac Intermediate leg Verified 08/08/21 10:29 swelling Active Medications: Current Medications Acetaminophen (Acetaminophen 325 Mg Tablet) 650 mg PO Q6H PRN PRN Reason: Pain, Mild (Pain Scale 1-3) Dexamethasone Sodium Phosphate (Dexamethasone Sod Phosphate 4 Mg/Ml Vial) 6 mg IVPUSH DAILY ENA Stop: 08/26/21 09:01 Furosemide (Furosemide 100 Mg/10 Ml Vial) 60 mg IVPUSH BID@0900,1800 ENA; Protocol Furosemide (Furosemide 40 Mg/4 Ml Vial) 40 mg IVPUSH STAT STA; Protocol Stop: 08/17/21 09:32 Insulin Human Lispro (Insulin Lispro 100 Unit/Ml 3 Ml Vial) 0 unit SUBCUT QIDACHS ENA; Protocol Last Admin: 08/17/21 08:57 Dose: 8 unit Documented by: Ondansetron HCl (Ondansetron Hcl 4 Mg/2 Ml Vial) 4 mg IVPUSH Q8H PRN PRN Reason: Nausea and Vomiting Pharmacy Consult (Consult Rx Perform Med Rec) 1 each MISCELLANE ONCE PRN PRN Reason: Consult order Sodium Chloride (0.9 % Sodium Chloride Flush 3 Ml Syringe) 3 ml IVFLUSH [facility] Home Medications Medication Instructions Recorded Confirmed Last Taken Type travoprost 0.004 % eye drops 1 drp OPHTHALMIC (EYE) BEDTIME 06/01/20 08/17/21 08/16/21 History metolazone 2.5 mg tablet 1.25 mg PO DAILY PRN tab 03/01/21 08/17/21 Unknown History omeprazole 20 mg capsule,delayed 20 mg PO DAILY@0630 cap 03/01/21 08/17/21 08/16/21 History release furosemide 80 mg tablet 80 mg PO DAILY 08/08/21 08/17/21 08/16/21 History hydralazine 25 mg tablet 50 mg PO DAILY tab 08/08/21 08/17/21 08/16/21 History acetaminophen 500 mg tablet 1,000 mg PO TID 08/17/21 08/17/21 08/16/21 History furosemide 80 mg tablet 40 mg PO BEDTIME 08/17/21 08/17/21 08/16/21 History glycerin (adult) 1 supp ME DAILY PRN 08/17/21 08/17/21 Unknown History hydralazine 25 mg tablet 25 mg PO DAILY PRN 08/17/21 08/17/21 Unknown History insulin lispro 100 unit/mL 0 sliding scale dose SUBCUT TIDAC 08/17/21 08/17/21 08/16/21 History subcutaneous pen (Humalog KwikPen (U-100) Insulin) lactulose 10 gram/15 mL oral 45 ml PO DAILY PRN 08/17/21 08/17/21 08/16/21 History solution Physical Exam Vital Signs and Narrative: Vital Signs: Last Vital Signs Temp 98.3 F 08/17/21 09:03 Pulse 63 08/17/21 09:03 Resp 22 H 08/17/21 09:03 BP 159/35 H 08/17/21 09:03 Pulse Ox 95 08/17/21 09:03 Oxygen Flow Rate 2 08/17/21 04:20 BMI result Body Mass Index 27.3 Const: Other: Constitutional - Awake and Alert, appears fatigued, in distress Eyes - PERRLA, EOMI Cardiovascular - S1S2, RRR, +b/l pitting edema 1+ Respiratory - rales bilaterally throughout both lung flores; mild tachypnea in the mid 20s Gastrointestinal - NT / ND; +BS; No rebound or guarding - No CVA tenderness Extremities - no calf tenderness bilaterally, no swelling Musculoskeletal - Normal inspection, normal ROM Skin - Warm/Dry Neurological - No focal deficits; oriented to self, time and location Psychological - Appropriate affect Results Labs CBC and Chem 7: 08/17/21 05:23 08/17/21 05:23 Labs: Laboratory Results - last 24 hr 08/17/21 08/17/21 08/17/21 04:30 05:22 05:23 MCV 85.2 MCH 28.2 MCHC 33.1 RDW 17.7 H Plt Count 237 D MPV 10.9 Immature Gran % (Auto) 0.4 Neut % (Auto) 80.4 H Lymph % (Auto) 6.8 L [place] % (Auto) 11.2 H Eos % (Auto) 0.4 Baso % (Auto) 0.8 Lymph # (Auto) 0.5 L [place] # (Auto) 0.9 Eos # (Auto) 0.0 Baso # (Auto) 0.1 Abs Immat Gran (auto) 0.03 Absolute Neuts (auto) 6.3 Absolute Nucleated RBC 0.000 Nucleated RBC % (auto) 0.0 VBG pH 7.46 H VBG pCO2 41 VBG pO2 66 VBG HCO3 29 H VBG O2 Saturation 89.0 VBG Base Excess 5.3 Anion Gap Estim Creat Clear Calc Estimated GFR POC Glucose Random Glucose Calcium Magnesium Total Bilirubin Direct Bilirubin AST ALT Alkaline Phosphatase Troponin I High Sens B-Natriuretic Peptide Total Protein Albumin COVID-19 (LING) Positive A COVID-19 Clin Com See Note 08/17/21 08/17/21 08/17/21 05:23 05:23 05:23 MCV MCH MCHC RDW Plt Count MPV Immature Gran % (Auto) Neut % (Auto) Lymph % (Auto) [place] % (Auto) Eos % (Auto) Baso % (Auto) Lymph # (Auto) [place] # (Auto) Eos # (Auto) Baso # (Auto) Abs Immat Gran (auto) Absolute Neuts (auto) Absolute Nucleated RBC Nucleated RBC % (auto) VBG pH VBG pCO2 VBG pO2 VBG HCO3 VBG O2 Saturation VBG Base Excess Anion Gap 18 Estim Creat Clear Calc 21.5 Estimated GFR 31 POC Glucose Random Glucose 261 H Calcium 9.3 Magnesium 2.5 Total Bilirubin 0.4 Direct Bilirubin 0.2 AST 32 H D ALT 32 H Alkaline Phosphatase 84 Troponin I High Sens 28.2 H D B-Natriuretic Peptide 1029 H Total Protein 7.0 Albumin 4.2 COVID-19 (LING) COVID-19 Clin Com 08/17/21 08/17/21 08:06 08:36 MCV MCH MCHC RDW Plt Count MPV Immature Gran % (Auto) Neut % (Auto) Lymph % (Auto) [place] % (Auto) Eos % (Auto) Baso % (Auto) Lymph # (Auto) [place] # (Auto) Eos # (Auto) Baso # (Auto) Abs Immat Gran (auto) Absolute Neuts (auto) Absolute Nucleated RBC Nucleated RBC % (auto) VBG pH VBG pCO2 VBG pO2 VBG HCO3 VBG O2 Saturation VBG Base Excess Anion Gap Estim Creat Clear Calc Estimated GFR POC Glucose 312 H Random Glucose Calcium Magnesium Total Bilirubin Direct Bilirubin AST ALT Alkaline Phosphatase Troponin I High Sens 60.3 H* D B-Natriuretic Peptide Total Protein Albumin COVID-19 (LING) COVID-19 Clin Com Imaging Radiologist's Impressions: Impressions Chest X-Ray 08/17/21 06:00 IMPRESSION: Small right pleural effusion. Diffuse interstitial prominence suggestive of edema. Assessment and Plan (1) CHF exacerbation: Status: Acute (2) COVID-19: Status: Acute Plan This is an 86 yo F with multiple medical problems including PAF on amio/xarelto, HFpEF, hypothyroidism, DM, HTN, amongst others who presents to the ED with sudden onset shortness of breath which woke her up from sleep. She is being admitted for acute HFpEF exacerbation, resp failure with hypoxia and COVID 19+ 1. Acute respiratory failure with hypoxia due to HFpEF + COVID19 Continue oxygen - 2L NC 2. Acute on chronic HFpEF Has elevated bnp, cxr consistent with CHF, weight gain On lasix 120mg total daily at home Received 40mg in the ED, will give an additional 20mg now and start 60mg BID I/O daily weights cardiology consult 3. COVID 19 cannot rule out covid 19 pneumonia at this time given hypoxia and multiple co-morbid conditions -- will commence treatment IV decadron x 10 days Remdesivir per protocol (5 days) --- borderline renal function (GFR 31) so will need close monitoring ID consultation Check inflammatory biomarkers 4. PAF EKG with undetermined rhythm, but appears sinus continue amio / metoprolol / xarelto 5. HTN continue baseline meds once med rec completed 6. Elevated HS trop-I possibly releated to hypoxia; repeat 3rd trop around noon repeat EKG 7. DM basal+bolus Full Code DVT pptx, Xarelto Endorses daughter Yue as HCP Quality Stroke Does the patient have a stroke diagnosis?: No VTE Prior VTE?: No VTE Risk Level:: Medical - moderate - high VTE Device Contraindication: Treatment Not Indicated VTE Drug Contraindication: N/A - Med Ordered
[2021-08-17] MEDS: Furosemide 20 MG/2 ML VIAL IVPUSH (09:53)
[2021-08-17] MEDS: dexAMETHasone sod phosphate 4 MG/ML VIAL 6 MG IVPUSH (09:53)
--- NOTE | 2021-08-17 10:08 | PHA.MEDREC ---
Pharmacy Consult ? Medication Reconciliation Pharmacy has completed the medication reconciliation. Spoke to patient's daughter Yue who is a [facility] about patient medications. Reports they use a formula to dose SSI. Metolazone is only used if patient has weight gain. Florina Cortez, PharmD
[2021-08-17 10:27] LABS: Procalcitonin 0.15 ng/mL
[2021-08-17 10:53] LABS: C Reactive Protein 1.64 mg/dL (< or = 0.50); Lactate Dehydrogenase 299 U/L (122-220)
[2021-08-17 11:09] LABS: Ferritin 35 ng/mL (10-250)
[2021-08-17 11:19] LABS: Glucose, Whole Blood 309 mg/dL (60-115)
[2021-08-17] MEDS: hydrALAZINE HCl 50 MG TABLET PO (11:28)
[2021-08-17] MEDS: Amiodarone HCL 200 MG TABLET PO (11:28)
[2021-08-17] MEDS: Metoprolol Succinate ER 100 MG TAB.ER.24H PO (11:28)
[2021-08-17] MEDS: Remdesivir 200 MG in 0.9 % Sodium Chloride 210 ML 105 MG IV (11:28)
[2021-08-17] MEDS: Insulin Glargine,Hum.rec.anlog 100 UNIT/ML 10 ML VIAL 10 UNIT SUBCUT (11:28)
[2021-08-17 13:05] LABS: Troponin-I High Sensitivity 83.3 ng/L (<3.5-17.0)
--- NOTE | 2021-08-17 16:28 | P.CNID_ITS ---
History of Present Illness Data of Consult Service Date: 08/17/21 Requesting physician: Esau Dietz Primary Care Provider: Unknown Physician HPI Reason for consult: shortness of breath She presents to hospital with shortness of breath. She has cough as well and positive COVID test. She was at a [employer] over weekend and persons tested positive at gathering. She is hypoxic to low 90s. 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 Chronic heart failure with preserved ejection fraction (HFpEF) Degenerative disc disease, lumbar Disc degeneration, lumbar Essential hypertension Hyperkalemia Hypothyroid Iliotibial band syndrome of right side Osteopenia Spinal stenosis of lumbar region Type 2 diabetes mellitus with hyperglycemia Family History Family History Father CVD (cardiovascular disease) Mother CVD (cardiovascular disease) Stroke Family history: reviewed and not pertinent Surgical History Surgical History History of appendectomy History of cataract surgery History of section History of cholecystectomy History of eye surgery History of hip replacement History of knee replacement History of removal of cyst Social History Social History Household Members: None Housing: House Do you presently have visiting nurse or other home services: No Alcohol intake: never Patient Tobacco Use Status: Never used Tobacco e-Cigarette/Vaping Use: Never Used Second Hand Smoke Exposure: No Use of substances other than those prescribed or required for medical reasons: No Any prior treatment program specific to substance use: No Advance Directives: No service: No Current occupational status: retired Meds Allergies Allergy/AdvReac Type Severity Reaction Status Date / Time codeine Allergy Intermediate TACHYCARDIA Verified 08/08/21 10:29 nitrofurantoin [Macrobid] Allergy Unknown confusion Verified 08/08/21 10:29 pravastatin Allergy Unknown Unknown Verified 08/08/21 10:29 rosuvastatin [Crestor] Allergy Unknown Unknown Verified 08/08/21 10:29 Sulfa (Sulfonamide Allergy Unknown unknown Verified 08/08/21 10:29 Antibiotics) sulfamethoxazole Allergy Unknown Unknown Verified 08/08/21 10:29 [From Bactrim] trimethoprim [From Bactrim] Allergy Unknown Unknown Verified 08/08/21 10:29 amlodipine AdvReac Intermediate leg Verified 08/08/21 10:29 swelling Active Medications: Current Medications Acetaminophen (Acetaminophen 325 Mg Tablet) 650 mg PO Q6H PRN PRN Reason: Pain, Mild (Pain Scale 1-3) Amiodarone HCl (Amiodarone Hcl 200 Mg Tablet) 200 mg PO DAILY PENDING SALE TO [facility] Last Admin: 08/17/21 11:28 Dose: 200 mg Documented by: Dexamethasone Sodium Phosphate (Dexamethasone Sod Phosphate 4 Mg/Ml Vial) 6 mg IVPUSH DAILY PENDING SALE TO [facility] Stop: 08/26/21 09:01 Last Admin: 08/17/21 09:53 Dose: 6 mg Documented by: Furosemide (Furosemide 100 Mg/10 Ml Vial) 60 mg IVPUSH BID@0900,1800 PENDING SALE TO [facility]; Protocol Hydralazine HCl (Hydralazine Hcl 50 Mg Tablet) 50 mg PO DAILY PENDING SALE TO [facility]; Protocol Last Admin: 08/17/21 11:28 Dose: 50 mg Documented by: Remdesivir 100 mg/ Sodium (Chloride) 230 mls @ 115 mls/hr IV Q24H PENDING SALE TO [facility] Stop: 08/21/21 12:59 Insulin Glargine (Insulin Glargine,Hum.Rec.Anlog 100 Unit/Ml 10 Ml Vial) 10 unit SUBCUT DAILY PENDING SALE TO [facility] Last Admin: 08/17/21 11:28 Dose: 10 unit Documented by: Insulin Human Lispro (Insulin Lispro 100 Unit/Ml 3 Ml Vial) 0 unit SUBCUT QID ACHS PENDING SALE TO [facility]; Protocol Last Admin: 08/17/21 11:27 Dose: 8 unit Documented by: Latanoprost (Latanoprost 0.005 % Ophth Liseth 2.5 Ml Drops) 1 drop EYE-BOTH BEDTIME PENDING SALE TO [facility] Levothyroxine Sodium (Levothyroxine Sodium 125 Mcg Tablet) 125 mcg PO DAILY@0600 PENDING SALE TO [facility] Metoprolol Succinate (Metoprolol Succinate Er 100 Mg Tab.Er.24h) 100 mg PO DAILY PENDING SALE TO [facility]; Protocol Last Admin: 08/17/21 11:28 Dose: 100 mg Documented by: Non-Formulary Medication (Simvastatin) 10 mg PO BEDTIME PENDING SALE TO [facility] Omeprazole (Omeprazole 20 Mg Capsule.Dr) 20 mg PO DAILY@0630 PENDING SALE TO [facility] Ondansetron HCl (Ondansetron Hcl 4 Mg/2 Ml Vial) 4 mg IVPUSH Q8H PRN PRN Reason: Nausea and Vomiting Pharmacy Consult (Consult Rx Perform Med Rec) 1 each MISCELLANE ONCE PRN PRN Reason: Consult order Rivaroxaban (Rivaroxaban 15 Mg Tablet) 15 mg PO BEDTIME PENDING SALE TO [facility] Sodium Chloride (0.9 % Sodium Chloride Flush 3 Ml Syringe) 3 ml IVFLUSH QSHIFT PENDING SALE TO [facility] Home Medications Medication Instructions Recorded Confirmed Last Taken Type travoprost 0.004 % eye drops 1 drp OPHTHALMIC (EYE) BEDTIME 06/01/20 08/17/21 08/16/21 History metolazone 2.5 mg tablet 1.25 mg PO DAILY PRN tab 03/01/21 08/17/21 Unknown History omeprazole 20 mg capsule,delayed 20 mg PO DAILY@0630 cap 03/01/21 08/17/21 08/16/21 History release furosemide 80 mg tablet 80 mg PO DAILY 08/08/21 08/17/21 08/16/21 History hydralazine 25 mg tablet 50 mg PO DAILY tab 08/08/21 08/17/21 08/16/21 History acetaminophen 500 mg tablet 1,000 mg PO TID 08/17/21 08/17/21 08/16/21 History furosemide 80 mg tablet 40 mg PO BEDTIME 08/17/21 08/17/21 08/16/21 History glycerin (adult) 1 supp AL DAILY PRN 08/17/21 08/17/21 Unknown History hydralazine 25 mg tablet 25 mg PO DAILY PRN 08/17/21 08/17/21 Unknown History insulin lispro 100 unit/mL 0 sliding scale dose SUBCUT TIDAC 08/17/21 08/17/21 08/16/21 History subcutaneous pen (Humalog KwikPen (U-100) Insulin) lactulose 10 gram/15 mL oral 45 ml PO DAILY PRN 08/17/21 08/17/21 08/16/21 History solution Physical Exam Vital Signs: Vital Signs: Last Vital Signs Temp 98.3 F 08/17/21 09:03 Pulse 56 08/17/21 13:39 Resp 21 H 08/17/21 13:39 BP 134/41 L 08/17/21 13:39 Pulse Ox 95 08/17/21 11:25 Oxygen Flow Rate 2 08/17/21 04:20 BMI result Body Mass Index 27.3 Const: General: cooperative Eyes: General: appearance normal, both eyes and all related structures Resp: Effort & Inspection: normal respiratory effort Cardio: Palpation: normal PMI Rate: regular rate GI: Palpation (GI): nontender Extrem: General: Yes normal to inspection Results Labs CBC & Chem 7: 08/17/21 05:23 08/17/21 05:23 Labs: Short CBC 08/17/21 Range/Units 05:23 WBC 7.8 (4.8-10.8) X10*3/uL Hgb 9.3 L (12.0-16.0) g/dl Hct 28.1 L (37.0-47.0) % Plt Count 237 D (160-400) X10*3/uL BMP 08/17/21 05:23 Sodium 135 Potassium 4.6 Chloride 96 Carbon Dioxide 26 BUN 55 H Creatinine 1.59 H Calcium 9.3 Liver Function 08/17/21 Range/Units 05:23 Total Bilirubin 0.4 (0.0-1.0) mg/dL Direct Bilirubin 0.2 (0.0-0.5) mg/dL AST 32 H D (5-31) U/L ALT 32 H (0-31) U/L Alkaline Phosphatase 84 (39-117) U/L Albumin 4.2 (3.5-5.0) g/dL Assessment and Plan (1) COVID-19: Status: Acute She is hypoxic and has COVID of recent duration of five days. She has no bacterial infection or VTE seen Plan Would continue oxygen. Agree Remdesivir for five days and Dexamethasone for ten days. Barcitinib if high flow oxygen needed.
[2021-08-17] MEDS: 0.9 % Sodium Chloride Flush 3 ML SYRINGE IVFLUSH ×2 (17:11→23:33)
[2021-08-17 17:16] LABS: Glucose, Whole Blood 115 mg/dL (60-115)
[2021-08-17 18:35] LABS: Troponin-I High Sensitivity 456.3 ng/L (<3.5-17.0)
[2021-08-17] MEDS: Furosemide 100 MG/10 ML VIAL 60 MG IVPUSH (18:38)
--- NOTE | 2021-08-17 18:47 | PM.EVENT ---
Event Note Date of Service: 08/17/21 Event Note: Increased trop likely from covid and CKD--Avoid heparin at this time given that patient is already on Xarelto, cardiology can assess tomorrow and CPK can be repeated in AM
--- NOTE | 2021-08-17 20:16 | MHC.CM.PN ---
IMM 08/17. CM met with admitted pt with bed assignment pending. A&Ox4. Pt is very worried and nervous about Covid diagnosis. Can tell CM about having a birthday republic[employer] and that some people at [employer] have COVID now. Pt tells CM her daughter cares for her at home, helps with her medications, cooks and provides needed medical care/observations/monitoring. Vax [id number]/Boosted. PCP is Dr. White. HCP on file HCP/daughter Yue Yang ([phone]). Pt lives alone, uses a walker and has no services. CM spoke with Yue with permission from pt. Yue is a retired pharmacist. Yue cares for her mother, sees her at least twice a day, cooks, cleans, monitors weight/BP and gives daily medications. Yue tells CM that her brother stays with his mother overnight, 3 nights a week. Yue is quite distressed about the Covid diagnosis, as she tells CM they are so careful. Yue tells CM that 5 people who attended the [employer]/birthday [employer] have tested positive for COVID. Pt also attended [employer] and did not wear a mask. CM listened and offered support. Yue does not believe her mother would agree to STR at discharge, but would be willing to have VNA services. Yue aware that positive Covid can impact what agencies will accept her mother as a patient. Pt has been active with [facility] in [place] in the past and would like a referral placed. Given CM contact. Enc daughter to call with questions, concerns, or updates, as she cannot visit with the Covid. D/C plan: Home with VNA referral. Family to provide transportation.
--- NOTE | 2021-08-17 20:21 | PC.NURSE ---
pt assisted to bedside commode. steady gait. pt given blanket
[2021-08-17 20:56] LABS: Glucose, Whole Blood 306 mg/dL (60-115)
[2021-08-17] MEDS: Rivaroxaban 15 MG TABLET PO (21:06)
[2021-08-17] MEDS: Latanoprost 0.005 % Ophth Sol 2.5 ML DROPS 1 DROP EYE-BOTH (21:06)
--- NOTE | 2021-08-17 21:15 | PC.NURSE ---
PT given a snack prior to bed
--- NOTE | 2021-08-18 01:38 | PC.NURSE ---
Patient arrived to overflow unit. A&O x3, vss. Patient stating that she has a cough.Will continue to monitor.
--- NOTE | 2021-08-18 01:56 | PC.NURSE ---
Report given to C RN. Patient trasported via bed to room 475.
[2021-08-18 02:33] VITALS: BP 174/60; PULSE 54; RESP 20; TEMP 36.7; O2SAT 93
[2021-08-18 03:54] VITALS: BP 165/69; PULSE 54; RESP 20; TEMP 37.4; O2SAT 97
[2021-08-18 04:52] LABS: Appearance Urine CLEAR; Color Urine YELLOW; Glucose Urine UA NEG (NEG); Leukocyte Esterase Urine NEG (NEG); Nitrite Urine NEG (NEG); PH 5.5 (5.0-8.0); Specific Gravity - Urine 1.015 (1.005-1.025); Urine Blood NEG (NEG); Urine Ketones NEG (NEG); Urine Protein TRACE MG/DL (NEG-TRACE)
[2021-08-18] MEDS: Omeprazole 20 MG CAPSULE.DR PO (05:50)
[2021-08-18] MEDS: Levothyroxine Sodium 125 MCG TABLET PO (05:50)
[2021-08-18 06:35] LABS: Hematocrit 26.8 % (37.0-47.0); Hemoglobin 8.8 g/dl (12.0-16.0); Mean Corpuscular HGB Conc 32.8 g/dl (31.0-35.0); Mean Corpuscular Hemoglobin 27.9 pg (27.0-33.0); Mean Corpuscular Volume 85.1 fL (80.0-98.0); Mean Platelet Volume 11.3 fL (9.4-12.3); Platelet Count 217 X10*3/uL (160-400); Red Blood Count 3.15 X10*6/uL (4.20-5.50); Red Cell Distribution Width 17.9 % (11.0-16.0); White Blood Count 10.3 X10*3/uL (4.8-10.8)
[2021-08-18 06:48] LABS: Anion Gap 18 (12-20); Blood Urea Nitrogen 60 mg/dL (9-16); Carbon Dioxide 30 mmol/L (22-29); Chloride 95 mmol/L (96-108); Creatinine Clr Calc Pharmacy 21.8; Estimated Glomerular Filt Rate 31; Glucose Random 175 mg/dL (60-115); Potassium 3.9 mmol/L (3.3-5.1); Sodium 139 mmol/L (135-145)
[2021-08-18 06:52] LABS: Alanine Aminotransferase 65 U/L (0-31); Albumin Level 3.8 g/dL (3.5-5.0); Alkaline Phosphatase 68 U/L (39-117); Aspartate Amino Transferase 56 U/L (5-31); Bilirubin Direct 0.2 mg/dL (0.0-0.5); Bilirubin Total 0.4 mg/dL (0.0-1.0); Total Protein 6.2 g/dL (6.5-8.0)
[2021-08-18 07:58] VITALS: BP 185/73; PULSE 56; RESP 20; TEMP 36.7; O2SAT 97
[2021-08-18 08:17] LABS: Glucose, Whole Blood 305 mg/dL (60-115)
[2021-08-18] MEDS: hydrALAZINE HCl 50 MG TABLET PO (08:50)
[2021-08-18] MEDS: Amiodarone HCL 200 MG TABLET PO (08:50)
[2021-08-18] MEDS: Insulin Lispro 100 UNIT/ML 3 ML VIAL SUBCUT ×4 (08:50→21:50)
[2021-08-18] MEDS: Metoprolol Succinate ER 100 MG TAB.ER.24H PO (08:50)
[2021-08-18] MEDS: 0.9 % Sodium Chloride Flush 3 ML SYRINGE IVFLUSH ×3 (08:50→21:50)
[2021-08-18] MEDS: dexAMETHasone sod phosphate 4 MG/ML VIAL 6 MG IVPUSH (08:51)
[2021-08-18] MEDS: Insulin Glargine,Hum.rec.anlog 100 UNIT/ML 10 ML VIAL 10 UNIT SUBCUT (08:51)
[2021-08-18] MEDS: Furosemide 100 MG/10 ML VIAL 60 MG IVPUSH ×2 (08:51→17:20)
--- NOTE | 2021-08-18 08:57 | P.CDIC_ITS ---
CDI Concurrent Query Documentation Clarification: PHYSICIAN'S DOCUMENTATION REQUEST Date of Query: 08/18/21 0857 Patient Name: Gerri Sanchez Admit Date: 08/17/21 Dear Doctor, A review of the medical record indicates additional documentation may be needed. Please review below and update the documentation accordingly. Clinical Indicators: The following clinical information was noted in the record: Risk Factors/Clinical Indicators/Treatments BUN 55 Creatinine 1.59 Est GFR 31 Per MD progress note 08/17/21: increased Trop likely from CKD Troponin 28.2 Please clarify which of the following accurately represents the patient's renal status: * Acute renal failure - see criteria * Acute renal failure with suspected ATN * Acute renal failure with other pathology (medullary, papillary, or cortical necrosis) * Acute renal failure (with type, appropriate) on Chronic Kidney Disease (CKD) - see criteria * Acute kidney injury (non-traumatic) - see criteria * CKD, please provide stage - see criteria * Other (please specify) * Unable to determine Criteria for JAZ* Stages of Chronic Kidney Disease* 1. Increase in serum creatinine by ? 0.3 mg/dL Level Description GFR (?26.5 micromol/L) within 48 hours, or G1 Normal or High > 90 2. Increase in serum creatinine to ?1.5 times baseline, G2 Mildly decreased 60 ? 89 which is known or presumed to have occurred within 7 days, or G3a Mildly to moderately decreased 45 ? 59 3. Urine volume <0.5 mL/kg/hour for six hours G3b Moderately to severely decreased 30 - 44 G4 Severely decreased 15 ? 29 G5 Kidney failure < 15 *Source: Kidney Disease: Improving Global Outcomes (KDIGO) 2012 Use of terms such as suspected, likely, concern for, or probable (associated with a specific diagnosis that is being evaluated, monitored, or treated as if it exists) are acceptable and can be coded in the inpatient setting, when documented at the time of discharge. Thank you, Alysa Dooley RN Extension: [phone] Please use your independent medical judgment in providing your response. THIS QUERY IS PART OF THE PERMANENT MEDICAL RECORD Provider Response: CKD Stage 3
[2021-08-18 11:01] LABS: Troponin-I High Sensitivity 324.2 ng/L (<3.5-17.0)
--- NOTE | 2021-08-18 11:16 | P.CONCA_ITS ---
History of Present Illness History of Present Illness Date of Service: 08/18/21 Requesting physician: Esau Dietz Consult reason: congestive heart failure Chief complaint: SOB Narrative: I was requested to see Gerri in cardiology consultation today for sudden onset shortness of breath and findings consistent with congestive heart failure. She sees Dr. Morrow in cardiology outpatient care for diastolic heart failure, paroxysmal atrial fibrillation on amiodarone chronic anticoagulation Xarelto as well as markedly labile blood pressure. She also carries a diagnosis of CAD although details are not available. Patient appears confused and event to a bedside and not sure why she came to the hospital. She says she came to hospital because she was diagnosed with COVID and she is here. She kept repeating that she came because she has got that infection. However from the chart on admission. The patient got suddenly short of breath overnight and was brought to the emergency room with BNP greater than 1000, chest x-ray finding consistent with pulmonary edema. Patient has had weight gain of about 6 lb. As per the chart patient had about deceleration recently and might have had a high salt diet content. She is also exposed to COVID during that time. She is noted to be COVID positive on admission. She is currently on isolation being treated for COVID as well as congestive heart failure. She is currently on IV Lasix. At home her Lasix doses variable based on her symptoms as well as daily weights. She also is on p.r.n. metolazone therapy. She also on p.r.n. hydralazine therapy given her labile blood pressure. She is not on any other heart failure therapy. Echo done in June this year showed normal LV systolic function with grade 2 diastolic dysfunction with [id number] mitral regurgitation modera tely elevated right ventricular systolic pressure elevated right atrial pressures. 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 Chronic heart failure with preserved ejection fraction (HFpEF) Degenerative disc disease, lumbar Disc degeneration, lumbar Essential hypertension Hyperkalemia Hypothyroid Iliotibial band syndrome of right side Osteopenia Spinal stenosis of lumbar region Type 2 diabetes mellitus with hyperglycemia Family History Family History Father CVD (cardiovascular disease) Mother CVD (cardiovascular disease) Stroke Family history: reviewed and not pertinent Surgical History Surgical History History of appendectomy History of cataract surgery History of section History of cholecystectomy History of eye surgery History of hip replacement History of knee replacement History of removal of cyst Social History Social History Household Members: None Household Members Other:: son comes 3 days a week, daughter lives 5 minutes away visits frequently Housing: House Do you presently have visiting nurse or other home services: No (used to get vna services) Alcohol intake: never Patient Tobacco Use Status: Former Tobacco user Tobacco use type: Cigarette Years Smoked: <1 e-Cigarette/Vaping Use: Never Used Second Hand Smoke Exposure: No service: No Current occupational status: retired Meds Allergies Allergy/AdvReac Type Severity Reaction Status Date / Time codeine Allergy Intermediate TACHYCARDIA Verified 08/08/21 10:29 nitrofurantoin [Macrobid] Allergy Unknown confusion Verified 08/08/21 10:29 pravastatin Allergy Unknown Unknown Verified 08/08/21 10:29 rosuvastatin [Crestor] Allergy Unknown Unknown Verified 08/08/21 10:29 Sulfa (Sulfonamide Allergy Unknown unknown Verified 08/08/21 10:29 Antibiotics) sulfamethoxazole Allergy Unknown Unknown Verified 08/08/21 10:29 [From Bactrim] trimethoprim [From Bactrim] Allergy Unknown Unknown Verified 08/08/21 10:29 amlodipine AdvReac Intermediate leg Verified 08/08/21 10:29 swelling Active Medications: Current Medications Acetaminophen (Acetaminophen 325 Mg Tablet) 650 mg PO Q6H PRN PRN Reason: Pain, Mild (Pain Scale 1-3) Amiodarone HCl (Amiodarone Hcl 200 Mg Tablet) 200 mg PO DAILY ENA Last Admin: 08/18/21 08:50 Dose: 200 mg Documented by: Dexamethasone Sodium Phosphate (Dexamethasone Sod Phosphate 4 Mg/Ml Vial) 6 mg IVPUSH DAILY ENA Stop: 08/26/21 09:01 Last Admin: 08/18/21 08:51 Dose: 6 mg Documented by: Furosemide (Furosemide 100 Mg/10 Ml Vial) 60 mg IVPUSH BID@0900,1800 [facility]; Protocol Last Admin: 08/18/21 08:51 Dose: 60 mg Documented by: Hydralazine HCl (Hydralazine Hcl 50 Mg Tablet) 50 mg PO DAILY [facility]; Protocol Last Admin: 08/18/21 08:50 Dose: 50 mg Documented by: Remdesivir 100 mg/ Sodium (Chloride) 230 mls @ 115 mls/hr IV Q24H [facility] Stop: 08/21/21 12:59 Insulin Glargine (Insulin Glargine,Hum.Rec.Anlog 100 Unit/Ml 10 Ml Vial) 10 unit SUBCUT DAILY [facility] Last Admin: 08/18/21 08:51 Dose: 10 unit Documented by: Insulin Human Lispro (Insulin Lispro 100 Unit/Ml 3 Ml Vial) 0 unit SUBCUT QIDACHS [facility]; Protocol Last Admin: 08/18/21 08:50 Dose: 8 unit Documented by: Latanoprost (Latanoprost 0.005 % Ophth Liseth 2.5 Ml Drops) 1 drop EYE-BOTH BEDTIME [facility] Last Admin: 08/17/21 21:06 Dose: 1 drop Documented by: Levothyroxine Sodium (Levothyroxine Sodium 125 Mcg Tablet) 125 mcg PO DAILY@0600 [facility] Last Admin: 08/18/21 05:50 Dose: 125 mcg Documented by: Metoprolol Succinate (Metoprolol Succinate Er 100 Mg Tab.Er.24h) 100 mg PO DAILY [facility]; Protocol Last Admin: 08/18/21 08:50 Dose: 100 mg Documented by: Patient Own Medication ( Simvastatin 10 Mg) 1 each PO BEDTIME [facility] Omeprazole (Omeprazole 20 Mg Capsule.Dr) 20 mg PO DAILY@0630 [facility] Last Admin: 08/18/21 05:50 Dose: 20 mg Documented by: Ondansetron HCl (Ondansetron Hcl 4 Mg/2 Ml Vial) 4 mg IVPUSH Q8H PRN PRN Reason: Nausea and Vomiting Pharmacy Consult (Consult Rx Perform Med Rec) 1 each MISCELLANE ONCE PRN PRN Reason: Consult order Rivaroxaban (Rivaroxaban 15 Mg Tablet) 15 mg PO BEDTIME [facility] Last Admin: 08/17/21 21:06 Dose: 15 mg Documented by: Sodium Chloride (0.9 % Sodium Chloride Flush 3 Ml Syringe) 3 ml IVFLUSH QSHIFT [facility] Last Admin: 08/18/21 08:50 Dose: 3 ml Documented by: Home Medications Medication Instructions Recorded Confirmed Last Taken Type travoprost 0.004 % eye drops 1 drp OPHTHALMIC (EYE) BEDTIME 06/01/20 08/17/21 08/16/21 History metolazone 2.5 mg tablet 1.25 mg PO DAILY PRN tab 03/01/21 08/17/21 Unknown History omeprazole 20 mg capsule,delayed 20 mg PO DAILY@0630 cap 03/01/21 08/17/2108/07 History release furosemide 80 mg tablet 80 mg PO DAILY 08/08/21 08/17/21 08/16/21 History hydralazine 25 mg tablet 50 mg PO DAILY tab 08/08/21 08/17/21 08/16/21 History acetaminophen 500 mg tablet 1,000 mg PO TID 08/17/21 08/17/21 08/16/21 History furosemide 80 mg tablet 40 mg PO BEDTIME 08/17/21 08/17/21 08/16/21 History glycerin (adult) 1 supp [place] DAILY PRN 08/17/21 08/17/21 Unknown History hydralazine 25 mg tablet 25 mg PO DAILY PRN 08/17/21 08/17/21 Unknown History insulin lispro 100 unit/mL 0 sliding scale dose SUBCUT TIDAC 08/17/21 08/17/21 08/16/21 History subcutaneous pen (Humalog KwikPen (U-100) Insulin) lactulose 10 gram/15 mL oral 45 ml PO DAILY PRN 08/17/21 08/17/21 08/16/21 History solution Physical Exam Vital Signs: Vital Signs: Last Vital Signs Temp 98.0 F 08/18/21 07:58 Pulse 56 08/18/21 07:58 Resp 20 08/18/21 07:58 BP 185/73 H 08/18/21 07:58 Pulse Ox 97 08/18/21 07:58 Oxygen Flow Rate 2 08/17/21 04:20 BMI result Body Mass Index 27.3 Const: General: cooperative, comfortable, alert, awake and confusion Nutritional Appearance: average body habitus Orientation/consciousness: confusion HEENT: Head: Yes normocephalic and Yes atraumatic Neck: Neck: Yes trachea midline, Yes supple and Yes JVD Chest: Chest palpation & inspection: normal inspection of the chest Resp: Effort & Inspection: normal respiratory effort Auscultation: crackles bilateral at the base Cardio: Jugular venous distension: JVD Palpation: normal PMI Rate: regular rate Rhythm: regular rhythm Heart sounds: S1 normal heart sound present, S2 normal heart sound present, no click, no gallops and no murmurs GI: Auscultation: normal bowel sounds Skin: General skin exam: no rashes or lesions noted Neuro: General: no focal motor deficits and confusion Extrem: General: Yes no clubbing, cyanosis or edema Objective Labs and Meds Result diagrams: 08/18/21 05:54 08/18/21 05:54 Lab results: Laboratory Results - last 24 hr 08/17/21 08/17/21 08/17/21 11:16 12:19 17:09 WBC RBC Hgb Hct MCV MCH MCHC RDW Plt Count MPV Absolute Nucleated RBC Nucleated RBC % (auto) Sodium Potassium Chloride Carbon Dioxide Anion Gap BUN Creatinine Estim Creat Clear Calc Estimated GFR POC Glucose 309 H 115 Random Glucose Calcium Total Bilirubin Direct Bilirubin AST ALT Alkaline Phosphatase Troponin I High Sens 83.3 H* Total Protein Albumin Urine Color Urine Appearance Urine pH Ur Specific [place] Urine Protein Urine Glucose (UA) Urine Ketones Urine Blood Urine Nitrite Ur Leukocyte Esterase 08/17/21 08/17/21 08/18/21 18:04 20:48 04:41 WBC RBC Hgb Hct MCV MCH MCHC RDW Plt Count MPV Absolute Nucleated RBC Nucleated RBC % (auto) Sodium Potassium Chloride Carbon Dioxide Anion Gap BUN Creatinine Estim Creat Clear Calc Estimated GFR POC Glucose 306 H Random Glucose Calcium Total Bilirubin Direct Bilirubin AST ALT Alkaline Phosphatase Troponin I High Sens 456.3 H* D Total Protein Albumin Urine Color YELLOW Urine Appearance CLEAR Urine pH 5.5 Ur Specific [place] 1.015 Urine Protein TRACE Urine Glucose (UA) NEG Urine Ketones NEG Urine Blood NEG Urine Nitrite NEG Ur Leukocyte Esterase NEG 08/18/21 08/18/21 08/18/21 05:54 05:54 05:54 WBC 10.3 RBC 3.15 L Hgb 8.8 L Hct 26.8 L MCV 85.1 MCH 27.9 MCHC 32.8 RDW 17.9 H Plt Count 217 MPV 11.3 Absolute Nucleated RBC 0.000 Nucleated RBC % (auto) 0.0 Sodium 139 Potassium 3.9 Chloride 95 L Carbon Dioxide 30 H Anion Gap 18 BUN 60 H Creatinine 1.57 H Estim Creat Clear Calc 21.8 Estimated GFR 31 POC Glucose Random Glucose 175 H Calcium 9.0 Total Bilirubin 0.4 Direct Bilirubin 0.2 AST 56 H ALT 65 H Alkaline Phosphatase 68 Troponin I High Sens Total Protein 6.2 L Albumin 3.8 Urine Color Urine Appearance Urine pH Ur Specific [place] Urine Protein Urine Glucose (UA) Urine Ketones Urine Blood Urine Nitrite Ur Leukocyte Esterase 08/18/21 08/18/21 08:13 10:19 WBC RBC Hgb Hct MCV MCH MCHC RDW Plt Count MPV Absolute Nucleated RBC Nucleated RBC % (auto) Sodium Potassium Chloride Carbon Dioxide Anion Gap BUN Creatinine Estim Creat Clear Calc Estimated GFR POC Glucose 305 H Random Glucose Calcium Total Bilirubin Direct Bilirubin AST ALT Alkaline Phosphatase Troponin I High Sens 324.2 H* Total Protein Albumin Urine Color Urine Appearance Urine pH Ur Specific [place] Urine Protein Urine Glucose (UA) Urine Ketones Urine Blood Urine Nitrite Ur Leukocyte Esterase Assessment and Plan (1) CHF exacerbation: Status: Acute Patient presents with hypoxic respiratory failure which appears to be multifactorial, driven by congestive heart failure, precipitated by probably dietary indiscretion as well as COVID. Clinically still appears to be fluid overloaded. Continue IV diuresis with Lasix 60 mg b.i.d.. Strict intake and output chart needs to be pursued. Add Aldactone 12.5 mg to regimen. Continue monitor renal function and electrolytes. Replace electrolytes as needed. Blood pressure is markedly labile. Add Aldactone 12.5 mg to her regimen. P.r.n. hydralazine for systolic blood pressure greater than 160 should be pursued. Continue treatment for COVID. Overall prognosis is guarded. Currently maintaining rhythm with amiodarone therapy. Continue the same. Has been held by rhythm control approach. Continue full oral anticoagulation with Xarelto. At this time management will be continued diuresis. Trend BNP and her dry BNP appears to be in a 300 range. Once this is achieved can switch her to p.o. Lasix. Will sign of the case. Feel free to contact us. Procedures Date of Service Date of Service: 08/18/21
[2021-08-18 11:25] VITALS: BP 153/67; PULSE 56; RESP 20; TEMP 36.9; O2SAT 97
[2021-08-18 11:37] LABS: Glucose, Whole Blood 276 mg/dL (60-115)
[2021-08-18] MEDS: Remdesivir 100 MG in 0.9 % Sodium Chloride 230 ML 115 MG IV (12:12)
[2021-08-18] MEDS: Spironolactone 25 MG TABLET 12.5 MG PO (14:20)
[2021-08-18 15:50] VITALS: BP 129/61; PULSE 53; RESP 16; TEMP 36.3; O2SAT 92
--- NOTE | 2021-08-18 15:55 | HO.PM.IMPN ---
Subjective Subjective Date of Service: 08/18/21 Interval History: seen and examined this morning follow up for covid 19 and chf patient somewhat confused denies sob at this time Review of Systems Review of Systems: Yes all other systems are reviewed and are negative Constitutional Constitutional: Denies chills and Denies fever(s) Cardiovascular Cardiovascular: Denies chest pain, Denies palpitations and Reports dyspnea Respiratory Respiratory: Denies cough and Reports dyspnea Gastrointestinal Gastrointestinal: Denies abdominal pain Endocrine Endocrine: Denies palpitations Physical Exam Vital Signs: Vital Signs: Last Vital Signs Temp 97.3 F 08/18/21 15:50 Pulse 53 08/18/21 15:50 Resp 16 08/18/21 15:50 BP 129/61 08/18/21 15:50 Pulse Ox 92 08/18/21 15:50 Oxygen Flow Rate 2 08/17/21 04:20 BMI result Body Mass Index 27.3 Const: General: cooperative, comfortable and no acute distress Nutritional Appearance: average body habitus Orientation/consciousness: oriented to person and oriented to place Resp: Effort & Inspection: normal respiratory effort and able to speak in complete sentences Auscultation: diminished lung sounds Cardio: Rate: regular rate Heart sounds: S1 normal heart sound present and S2 normal heart sound present GI: Inspection: No distended Palpation (GI): Soft to palpation and nontender Neuro: General: oriented to person and oriented to place Extrem: General: Yes no pedal edema Objective Data Active Medications Acetaminophen (Acetaminophen 325 Mg Tablet) 650 mg PO Q6H PRN PRN Reason: Pain, Mild (Pain Scale 1-3) Amiodarone HCl (Amiodarone Hcl 200 Mg Tablet) 200 mg PO DAILY [facility] Last Admin: 08/18/21 08:50 Dose: 200 mg Documented by: CONNIE Dexamethasone Sodium Phosphate (Dexamethasone Sod Phosphate 4 Mg/Ml Vial) 6 mg IVPUSH DAILY [facility] Stop: 08/26/21 09:01 Last Admin: 08/18/21 08:51 Dose: 6 mg Documented by: CONNIE Furosemide (Furosemide 100 Mg/10 Ml Vial) 60 mg IVPUSH BID@0900,1800 [facility]; Protocol Last Admin: 08/18/21 08:51 Dose: 60 mg Documented by: CONNIE Hydralazine HCl (Hydralazine Hcl 50 Mg Tablet) 50 mg PO DAILY [facility]; Protocol Last Admin: 08/18/21 08:50 Dose: 50 mg Documented by: CONNIE Remdesivir 100 mg/ Sodium (Chloride) 230 mls @ 115 mls/hr IV Q24H [facility] Stop: 08/21/21 12:59 Last Infusion: 08/18/21 14:20 Dose: 0 mls/hr Documented by: CONNIE Insulin Glargine (Insulin Glargine,Hum.Rec.Anlog 100 Unit/Ml 10 Ml Vial) 10 unit SUBCUT DAILY [facility] Last Admin: 08/18/21 08:51 Dose: 10 unit Documented by: CONNIE Insulin Human Lispro (Insulin Lispro 100 Unit/Ml 3 Ml Vial) 0 unit SUBCUT QIDACHS [facility]; Protocol Last Admin: 08/18/21 12:12 Dose: 6 unit Documented by: CONNIE Latanoprost (Latanoprost 0.005 % Ophth Liseth 2.5 Ml Drops) 1 drop EYE-BOTH BEDTIME [facility] Last Admin: 08/17/21 21:06 Dose: 1 drop Documented by: ROBINSON Levothyroxine Sodium (Levothyroxine Sodium 125 Mcg Tablet) 125 mcg PO DAILY@0600 [facility] Last Admin: 08/18/21 05:50 Dose: 125 mcg Documented by: WARREN Metoprolol Succinate (Metoprolol Succinate Er 100 Mg Tab.Er.24h) 100 mg PO DAILY [facility]; Protocol Last Admin: 08/18/21 08:50 Dose: 100 mg Documented by: CONNIE Patient Own Medication ( Simvastatin 10 Mg) 1 each PO BEDTIME [facility] Omeprazole (Omeprazole 20 Mg Capsule.) 20 mg PO DAILY@0630 [facility] Last Admin: 08/18/21 05:50 Dose: 20 mg Documented by: WARREN Ondansetron HCl (Ondansetron Hcl 4 Mg/2 Ml Vial) 4 mg IVPUSH Q8H PRN PRN Reason: Nausea and Vomiting Pharmacy Consult (Consult Rx Perform Med Rec) 1 each MISCELLANE ONCE PRN PRN Reason: Consult order Rivaroxaban (Rivaroxaban 15 Mg Tablet) 15 mg PO BEDTIME [facility] Last Admin: 08/17/21 21:06 Dose: 15 mg Documented by: ROBINSON Sodium Chloride (0.9 % Sodium Chloride Flush 3 Ml Syringe) 3 ml IVFLUSH QSHIFT [facility] Last Admin: 08/18/21 08:50 Dose: 3 ml Documented by: CONNIE Spironolactone (Spironolactone 25 Mg Tablet) 12.5 mg PO DAILY [facility]; Protocol Last Admin: 08/18/21 14:20 Dose: 12.5 mg Documented by: CONNIE Labs CBC & Chem 7: 08/18/21 05:54 08/18/21 05:54 Labs: Laboratory Results - last 24 hr 08/17/21 08/17/21 08/17/21 17:09 18:04 20:48 MCV MCH MCHC RDW Plt Count MPV Absolute Nucleated RBC Nucleated RBC % (auto) Anion Gap Estim Creat Clear Calc Estimated GFR POC Glucose 115 306 H Random Glucose Calcium Total Bilirubin Direct Bilirubin AST ALT Alkaline Phosphatase Troponin I High Sens 456.3 H* D Total Protein Albumin Urine Color Urine Appearance Urine pH Ur Specific [place] Urine Protein Urine Glucose (UA) Urine Ketones Urine Blood Urine Nitrite Ur Leukocyte Esterase 08/18/21 08/18/21 08/18/21 04:41 05:54 05:54 MCV 85.1 MCH 27.9 MCHC 32.8 RDW 17.9 H Plt Count 217 MPV 11.3 Absolute Nucleated RBC 0.000 Nucleated RBC % (auto) 0.0 Anion Gap Estim Creat Clear Calc Estimated GFR POC Glucose Random Glucose Calcium Total Bilirubin 0.4 Direct Bilirubin 0.2 AST 56 H ALT 65 H Alkaline Phosphatase 68 Troponin I High Sens Total Protein 6.2 L Albumin 3.8 Urine Color YELLOW Urine Appearance CLEAR Urine pH 5.5 Ur Specific [place] 1.015 Urine Protein TRACE Urine Glucose (UA) NEG Urine Ketones NEG Urine Blood NEG Urine Nitrite NEG Ur Leukocyte Esterase NEG 08/18/21 08/18/21 08/18/21 05:54 08:13 10:19 MCV MCH MCHC RDW Plt Count MPV Absolute Nucleated RBC Nucleated RBC % (auto) Anion Gap 18 Estim Creat Clear Calc 21.8 Estimated GFR 31 POC Glucose 305 H Random Glucose 175 H Calcium 9.0 Total Bilirubin Direct Bilirubin AST ALT Alkaline Phosphatase Troponin I High Sens 324.2 H* Total Protein Albumin Urine Color Urine Appearance Urine pH Ur Specific [place] Urine Protein Urine Glucose (UA) Urine Ketones Urine Blood Urine Nitrite Ur Leukocyte Esterase 08/18/21 11:27 MCV MCH MCHC RDW Plt Count MPV Absolute Nucleated RBC Nucleated RBC % (auto) Anion Gap Estim Creat Clear Calc Estimated GFR POC Glucose 276 H Random Glucose Calcium Total Bilirubin Direct Bilirubin AST ALT Alkaline Phosphatase Troponin I High Sens Total Protein Albumin Urine Color Urine Appearance Urine pH Ur Specific [place] Urine Protein Urine Glucose (UA) Urine Ketones Urine Blood Urine Nitrite Ur Leukocyte Esterase Assessment and Plan (1) CHF exacerbation: Status: Acute (2) COVID-19: Status: Acute Plan This is an 86 yo F with multiple medical problems including PAF on amio/xarelto, HFpEF, hypothyroidism, DM, HTN, amongst others who presents to the ED with sudden onset shortness of breath which woke her up from sleep. She is being admitted for acute HFpEF exacerbation, resp failure with hypoxia and COVID 19+ Acute respiratory failure with hypoxia due to HFpEF + COVID19 Continue oxygen - 2L [place], wean as tolerated Acute on chronic HFpEF Has elevated bnp, cxr consistent with CHF, weight gain On lasix 120mg total daily at home Received 40mg in the ED, will give an additional 20mg now and start 60mg BID I/O daily weights seen by cardiology, agree with diuresis, recommend to add aldactone follow electrolytes, BNP, renal function COVID 19 cannot rule out covid 19 pneumonia at this time given hypoxia and multiple co-morbid conditions - will treat continue IV decadron x 10 days; 2/10 Remdesivir per protocol (5 days) --- borderline renal function (GFR 31) so will need close monitoring seen by ID, agrees with above management Follow inflammatory biomarkers PAF HR controlled continue amio / metoprolol / xarelto HTN BP not under adequate control continue hydralazine Elevated HS trop-I possibly releated to hypoxia; repeat 3rd trop around noon repeat EKG DM basal+bolus hypothyroidism continue synthroid gerd continue omeprazole HLD continue statin Full Code DVT pptx, Xarelto Endorses daughter Yue as HCP Attending: dr. das Patient requires continued inpatient hospitalization secondary to acute on chronic CHF and treatment including IV diuretics as well as treatment for COVID-19 Quality Stroke Does the patient have a stroke diagnosis?: No VTE Prior VTE?: No VTE Risk Level:: Medical - moderate - high VTE Device Contraindication: Treatment Not Indicated VTE Drug Contraindication: N/A - Med Ordered
[2021-08-18 16:41] LABS: Glucose, Whole Blood 171 mg/dL (60-115)
[2021-08-18 20:00] VITALS: BP 161/64; PULSE 52; RESP 16; TEMP 37; O2SAT 100
[2021-08-18 20:37] LABS: Glucose, Whole Blood 345 mg/dL (60-115)
[2021-08-18] MEDS: Acetaminophen 325 MG TABLET 650 MG PO (21:50)
[2021-08-18] MEDS: Latanoprost 0.005 % Ophth Sol 2.5 ML DROPS 1 DROP EYE-BOTH (21:51)
[2021-08-18] MEDS: Rivaroxaban 15 MG TABLET PO (21:51)
[2021-08-19] VITALS (7 sets, daily range): BP systolic 114–192; BP diastolic 46–95; PULSE 48–62; RESP 16–20; TEMP 36.1–37; O2SAT 95–100
[2021-08-19] MEDS: Omeprazole 20 MG CAPSULE.DR PO (05:53)
[2021-08-19] MEDS: Levothyroxine Sodium 125 MCG TABLET PO (05:53)
[2021-08-19 07:23] LABS: Anion Gap 22 (12-20); Blood Urea Nitrogen 72 mg/dL (9-16); Calcium 8.7 mg/dL (8.4-10.2); Carbon Dioxide 27 mmol/L (22-29); Chloride 90 mmol/L (96-108); Creatinine Clr Calc Pharmacy 18.8; Estimated Glomerular Filt Rate 26; Potassium 3.8 mmol/L (3.3-5.1); Sodium 135 mmol/L (135-145)
[2021-08-19 07:25] LABS: Glucose Random 480 mg/dL (60-115)
[2021-08-19 07:25] LABS: Glucose, Whole Blood 497 mg/dL (60-115)
[2021-08-19 07:29] LABS: B Type Natriuretic Peptide 813 pg/mL (<100)
[2021-08-19 08:36] LABS: Ferritin 92 ng/mL (10-250)
[2021-08-19] MEDS: 0.9 % Sodium Chloride Flush 3 ML SYRINGE IVFLUSH ×3 (08:55→20:39)
[2021-08-19] MEDS: Amiodarone HCL 200 MG TABLET PO (08:55)
[2021-08-19] MEDS: hydrALAZINE HCl 50 MG TABLET PO (08:55)
[2021-08-19] MEDS: Metoprolol Succinate ER 100 MG TAB.ER.24H PO (08:55)
[2021-08-19] MEDS: Spironolactone 25 MG TABLET 12.5 MG PO (08:56)
[2021-08-19] MEDS: Insulin Lispro 100 UNIT/ML 3 ML VIAL SUBCUT ×5 (08:56→16:46)
[2021-08-19] MEDS: Insulin Glargine,Hum.rec.anlog 100 UNIT/ML 10 ML VIAL 10 UNIT SUBCUT (08:57)
[2021-08-19] MEDS: Furosemide 100 MG/10 ML VIAL 60 MG IVPUSH (08:57)
[2021-08-19] MEDS: dexAMETHasone sod phosphate 4 MG/ML VIAL 6 MG IVPUSH (08:57)
[2021-08-19 10:09] LABS: Glucose, Whole Blood 505 mg/dL (60-115)
[2021-08-19 10:24] LABS: Glucose, Whole Blood 591 mg/dL (60-115)
[2021-08-19] MEDS: Insulin Regular, Human 100 UNIT/ML 3 ML VIAL 10 UNIT IVPUSH (10:34)
[2021-08-19 12:02] LABS: Glucose, Whole Blood 423 mg/dL (60-115)
--- NOTE | 2021-08-19 14:17 | P.PNIM_ITS ---
Subjective Subjective Date of Service: 08/19/21 Interval History: seen and examined this morning follow up for COVID and chf breathing improving blood sugar uncontrolled this am Review of Systems Review of Systems: Yes all other systems are reviewed and are negative Constitutional Constitutional: Denies chills and Denies fever(s) Cardiovascular Cardiovascular: Denies chest pain and Denies palpitations Gastrointestinal Gastrointestinal: Denies abdominal pain, Denies nausea and Denies vomiting Endocrine Endocrine: Denies palpitations Physical Exam Vital Signs: Vital Signs: Last Vital Signs Temp 97.0 F 08/19/21 11:15 Pulse 52 08/19/21 11:15 Resp 18 08/19/21 11:15 BP 123/61 08/19/21 11:15 Pulse Ox 97 08/19/21 11:15 Oxygen Flow Rate 2 08/17/21 04:20 BMI result Body Mass Index 27.3 Const: General: cooperative, comfortable and no acute distress Nutritional Appearance: average body habitus Orientation/consciousness: oriented to person and oriented to place Resp: Effort & Inspection: normal respiratory effort and able to speak in complete sentences Auscultation: clear to auscultation bilaterally and diminished lung sounds Cardio: Rate: regular rate Heart sounds: S1 normal heart sound present and S2 normal heart sound present GI: Inspection: No distended Palpation (GI): Soft to palpation and nontender Neuro: General: oriented to person and oriented to place Extrem: General: Yes no pedal edema Objective Data Active Medications Acetaminophen (Acetaminophen 325 Mg Tablet) 650 mg PO Q6H PRN PRN Reason: Pain, Mild (Pain Scale 1-3) Last Admin: 08/18/21 21:50 Dose: 650 mg Documented by: АНДРЕЙ Amiodarone HCl (Amiodarone Hcl 200 Mg Tablet) 200 mg PO DAILY [facility] Last Admin: 08/19/21 08:55 Dose: 200 mg Documented by: DASHAWN Dexamethasone Sodium Phosphate (Dexamethasone Sod Phosphate 4 Mg/Ml Vial) 6 mg IVPUSH DAILY [facility] Stop: 08/26/21 09:01 Last Admin: 08/19/21 08:57 Dose: 6 mg Documented by: DASHAWN Furosemide (Furosemide 40 Mg Tablet) 40 mg PO BEDTIME [facility]; Protocol Furosemide (Furosemide 40 Mg Tablet) 80 mg PO DAILY [facility]; Protocol Hydralazine HCl (Hydralazine Hcl 50 Mg Tablet) 50 mg PO DAILY [facility]; Protocol Last Admin: 08/19/21 08:55 Dose: 50 mg Documented by: DASHAWN Insulin Glargine (Insulin Glargine,Hum.Rec.Anlog 100 Unit/Ml 10 Ml Vial) 10 unit SUBCUT DAILY [facility] Last Admin: 08/19/21 08:57 Dose: 10 unit Documented by: DASHAWN Insulin Human Lispro (Insulin Lispro 100 Unit/Ml 3 Ml Vial) 0 unit SUBCUT QIDACHS [facility]; Protocol Last Admin: 08/19/21 12:28 Dose: 10 unit Documented by: DASHAWN Insulin Human Lispro (Insulin Lispro 100 Unit/Ml 3 Ml Vial) 4 unit SUBCUT TIDAC [facility] Lactulose (Lactulose 20 Gm/30 Ml Solution) 30 gm PO DAILY PRN PRN Reason: constipation Latanoprost (Latanoprost 0.005 % Ophth Liseth 2.5 Ml Drops) 1 drop EYE-BOTH BEDTIME [facility] Last Admin: 08/18/21 21:51 Dose: 1 drop Documented by: АНДРЕЙ Levothyroxine Sodium (Levothyroxine Sodium 125 Mcg Tablet) 125 mcg PO DAILY@0600 [facility] Last Admin: 08/19/21 05:53 Dose: 125 mcg Documented by: АНДРЕЙ Metoprolol Succinate (Metoprolol Succinate Er 100 Mg Tab.Er.24h) 100 mg PO DAILY [facility]; Protocol Last Admin: 08/19/21 08:55 Dose: 100 mg Documented by: DASHAWN Patient Own Medication ( Simvastatin 10 Mg) 1 each PO BEDTIME [facility] Last Admin: 08/18/21 21:51 Dose: 1 each Documented by: АНДРЕЙ Omeprazole (Omeprazole 20 Mg Capsule.) 20 mg PO DAILY@0630 [facility] Last Admin: 08/19/21 05:53 Dose: 20 mg Documented by: АНДРЕЙ Ondansetron HCl (Ondansetron Hcl 4 Mg/2 Ml Vial) 4 mg IVPUSH Q8H PRN PRN Reason: Nausea and Vomiting Pharmacy Consult (Consult Rx Perform Med Rec) 1 each MISCELLANE ONCE PRN PRN Reason: Consult order Rivaroxaban (Rivaroxaban 15 Mg Tablet) 15 mg PO BEDTIME [facility] Last Admin: 08/18/21 21:51 Dose: 15 mg Documented by: АНДРЕЙ Sodium Chloride (0.9 % Sodium Chloride Flush 3 Ml Syringe) 3 ml IVFLUSH QSHIFT [facility] Last Admin: 08/19/21 08:55 Dose: 3 ml Documented by: DASHAWN Spironolactone (Spironolactone 25 Mg Tablet) 12.5 mg PO DAILY [facility]; Protocol Last Admin: 08/19/21 08:56 Dose: 12.5 mg Documented by: DASHAWN Labs CBC & Chem 7: 08/18/21 05:54 08/19/21 06:39 Labs: Laboratory Results - last 24 hr 08/18/21 08/18/21 08/19/21 15:54 20:28 06:39 Anion Gap 22 H Estim Creat Clear Calc 18.8 Estimated GFR 26 POC Glucose 171 H 345 H Random Glucose 480 H* D Calcium 8.7 Ferritin 92 C-Reactive Protein 9.20 H B-Natriuretic Peptide 08/19/21 08/19/21 08/19/21 06:39 07:21 10:05 Anion Gap Estim Creat Clear Calc Estimated GFR POC Glucose 497 H* 505 H* Random Glucose Calcium Ferritin C-Reactive Protein B-Natriuretic Peptide 813 H 08/19/21 08/19/21 10:18 11:58 Anion Gap Estim Creat Clear Calc Estimated GFR POC Glucose 591 H* 423 H* Random Glucose Calcium Ferritin C-Reactive Protein B-Natriuretic Peptide Assessment and Plan (1) COVID-19: Status: Acute (2) CHF exacerbation: Status: Acute Plan This is an 86 yo F with multiple medical problems including PAF on amio/xarelto, HFpEF, hypothyroidism, DM, HTN, amongst others who presents to the ED with sudden onset shortness of breath which woke her up from sleep. She is being admitted for acute HFpEF exacerbation, resp failure with hypoxia and COVID 19+ Acute respiratory failure with hypoxia due to HFpEF + COVID19 Continue oxygen - 2L NC, wean as tolerated to keep o2>92% Acute on chronic HFpEF Has elevated bnp, cxr consistent with CHF, weight gain On lasix 120mg total daily at home was initially diuresed with IV lasix, will transition to PO lasix starting in am I/O not accurate seen by cardiology, aldactone added on this admission follow electrolytes, BNP, renal function COVID 19 cannot rule out covid 19 pneumonia at this time given hypoxia and multiple co-morbid conditions - will treat continue IV decadron x 10 days; 06/16 Remdesivir, received two days, but now CI due to increasing renal function. will d/c seen by ID, agrees with above management inflammatory biomarkers increasing but clinically appears to be improving wean o2 as tolerated DM with hyperglycemia likely r/t steroids changed to diabetic diet premeal insulin added continue basal+bolus follow blood sugar closely CKD creatinine trending up but still within baseline if continues to trend up may need to hold diuretics PAF HR controlled continue amio / metoprolol / xarelto HTN BP under adequate control continue hydralazine, meotprolol, aldactone Elevated HS trop-I trops flat seen by cardiology, no further work up hypothyroidism continue synthroid gerd continue omeprazole HLD continue statin Full Code DVT pptx, Xarelto Endorses daughter Yue as HCP Attending: dr. das Patient requires continued inpatient hospitalization secondary to acute on chronic CHF and treatment including IV diuretics as well as treatment for COVID- 19 Quality Stroke Does the patient have a stroke diagnosis?: No VTE Prior VTE?: No VTE Risk Level:: Medical - moderate - high VTE Device Contraindication: Treatment Not Indicated VTE Drug Contraindication: N/A - Med Ordered
[2021-08-19] MEDS: Lactulose 20 GM/30 ML SOLUTION 30 GM PO (15:35)
[2021-08-19 15:47] LABS: Glucose, Whole Blood 155 mg/dL (60-115)
--- NOTE | 2021-08-19 16:00 | MHC.CM.PN ---
Addendum entered by Ewa Gross 08/19/21 16:02: Patient receiving Decadron causing elevated BGL. Original Note: Female 86 DX Covid DP home with VNA. Family will provide transportation. No DC today r/t BGL.
[2021-08-19] MEDS: Glycerin Adult SUPP.RECT 1 SUPP PR (16:45)
[2021-08-19 19:45] LABS: Glucose, Whole Blood 134 mg/dL (60-115)
--- NOTE | 2021-08-19 20:35 | PC.NURSE ---
pt c/o of constipation; lactulose and suppository given
[2021-08-19] MEDS: Rivaroxaban 15 MG TABLET PO (20:38)
[2021-08-19] MEDS: Latanoprost 0.005 % Ophth Sol 2.5 ML DROPS 1 DROP EYE-BOTH (20:38)
[2021-08-20 03:46] VITALS: BP 154/64; PULSE 65; RESP 20; TEMP 36.4; O2SAT 95
[2021-08-20] MEDS: Levothyroxine Sodium 125 MCG TABLET PO (05:49)
[2021-08-20] MEDS: Omeprazole 20 MG CAPSULE.DR PO (05:49)
[2021-08-20 07:48] VITALS: BP 140/67; PULSE 54; RESP 20; TEMP 36.1; O2SAT 99
[2021-08-20 08:03] LABS: Glucose, Whole Blood 477 mg/dL (60-115)
[2021-08-20] MEDS: Insulin Lispro 100 UNIT/ML 3 ML VIAL SUBCUT ×7 (09:20→22:00)
[2021-08-20] MEDS: Insulin Glargine,Hum.rec.anlog 100 UNIT/ML 10 ML VIAL 10 UNIT SUBCUT (09:20)
[2021-08-20] MEDS: dexAMETHasone sod phosphate 4 MG/ML VIAL 6 MG IVPUSH (09:20)
[2021-08-20] MEDS: 0.9 % Sodium Chloride Flush 3 ML SYRINGE IVFLUSH ×2 (09:20→16:47)
[2021-08-20] MEDS: hydrALAZINE HCl 50 MG TABLET PO (09:21)
[2021-08-20] MEDS: Furosemide 40 MG TABLET 80 MG PO (09:21)
[2021-08-20] MEDS: Amiodarone HCL 200 MG TABLET PO (09:21)
[2021-08-20] MEDS: Spironolactone 25 MG TABLET 12.5 MG PO (09:21)
[2021-08-20] MEDS: Metoprolol Succinate ER 100 MG TAB.ER.24H PO (09:21)
[2021-08-20 11:16] VITALS: BP 119/57; PULSE 50; RESP 20; TEMP 36.9; O2SAT 97
--- NOTE | 2021-08-20 11:21 | P.PNIM_ITS ---
Subjective Subjective Date of Service: 08/20/21 Review of Systems follow up for COVID and chf breathing improving blood sugar uncontrolled this am Physical Exam Vital Signs: Vital Signs: Last Vital Signs Temp 98.5 F 08/20/21 11:16 Pulse 50 08/20/21 11:16 Resp 20 08/20/21 11:16 BP 119/57 L 08/20/21 11:16 Pulse Ox 97 08/20/21 11:16 Oxygen Flow Rate 2 08/17/21 04:20 BMI result Body Mass Index 27.3 Appearing in no acute distress lung sounds are clear to auscultation heart regular rate rhythm, clear S1, S2 positive bowel sounds, abdomen is soft, nontender neuro patient is alert x3, no focal deficits Objective Data Active Medications Acetaminophen (Acetaminophen 325 Mg Tablet) 650 mg PO Q6H PRN PRN Reason: Pain, Mild (Pain Scale 1-3) Last Admin: 08/18/21 21:50 Dose: 650 mg Documented by: CASTILM Amiodarone HCl (Amiodarone Hcl 200 Mg Tablet) 200 mg PO DAILY [facility] Last Admin: 08/20/21 09:21 Dose: 200 mg Documented by: COTEMA Dexamethasone Sodium Phosphate (Dexamethasone Sod Phosphate 4 Mg/Ml Vial) 6 mg IVPUSH DAILY [facility] Stop: 08/26/21 09:01 Last Admin: 08/20/21 09:20 Dose: 6 mg Documented by: COTEMA Furosemide (Furosemide 40 Mg Tablet) 40 mg PO BEDTIME [facility]; Protocol Furosemide (Furosemide 40 Mg Tablet) 80 mg PO DAILY [facility]; Protocol Last Admin: 08/20/21 09:21 Dose: 80 mg Documented by: COTEMA Hydralazine HCl (Hydralazine Hcl 50 Mg Tablet) 50 mg PO DAILY [facility]; Protocol Last Admin: 08/20/21 09:21 Dose: 50 mg Documented by: COTEMA Insulin Glargine (Insulin Glargine,Hum.Rec.Anlog 100 Unit/Ml 10 Ml Vial) 10 uni t SUBCUT DAILY [facility] Last Admin: 08/20/21 09:20 Dose: 10 unit Documented by: COTEMA Insulin Human Lispro (Insulin Lispro 100 Unit/Ml 3 Ml Vial) 0 unit SUBCUT QIDACHS [facility]; Protocol Last Admin: 08/20/21 09:20 Dose: 10 unit Documented by: HO.COTEMA Insulin Human Lispro (Insulin Lispro 100 Unit/Ml 3 Ml Vial) 4 unit SUBCUT TIDAC [facility] Last Admin: 08/20/21 09:20 Dose: 4 unit Documented by: SERA Lactulose (Lactulose 20 Gm/30 Ml Solution) 30 gm PO DAILY PRN PRN Reason: constipation Last Admin: 08/19/21 15:35 Dose: 30 gm Documented by: DASHAWN Latanoprost (Latanoprost 0.005 % Ophth Liseth 2.5 Ml Drops) 1 drop EYE-BOTH BEDTIME [facility] Last Admin: 08/19/21 20:38 Dose: 1 drop Documented by: BRADY Levothyroxine Sodium (Levothyroxine Sodium 125 Mcg Tablet) 125 mcg PO DAILY@0600 [facility] Last Admin: 08/20/21 05:49 Dose: 125 mcg Documented by: BRADY Metoprolol Succinate (Metoprolol Succinate Er 100 Mg Tab.Er.24h) 100 mg PO DAILY [facility]; Protocol Last Admin: 08/20/21 09:21 Dose: 100 mg Documented by: SERA Patient Own Medication ( Simvastatin 10 Mg) 1 each PO BEDTIME [facility] Last Admin: 08/19/21 20:38 Dose: 1 each Documented by: BRADY Omeprazole (Omeprazole 20 Mg Capsule.Dr) 20 mg PO DAILY@0630 [facility] Last Admin: 08/20/21 05:49 Dose: 20 mg Documented by: BRADY Ondansetron HCl (Ondansetron Hcl 4 Mg/2 Ml Vial) 4 mg IVPUSH Q8H PRN PRN Reason: Nausea and Vomiting Pharmacy Consult (Consult Rx Perform Med Rec) 1 each MISCELLANE ONCE PRN PRN Reason: Consult order Rivaroxaban (Rivaroxaban 15 Mg Tablet) 15 mg PO BEDTIME [facility] Last Admin: 08/19/21 20:38 Dose: 15 mg Documented by: BRADY Sodium Chloride (0.9 % Sodium Chloride Flush 3 Ml Syringe) 3 ml IVFLUSH QSHIFT [facility] Last Admin: 08/20/21 09:20 Dose: 3 ml Documented by: SERA Spironolactone (Spironolactone 25 Mg Tablet) 12.5 mg PO DAILY [facility]; Protocol Last Admin: 08/20/21 09:21 Dose: 12.5 mg Documented by: SERA Labs CBC & Chem 7: 08/18/21 05:54 08/19/21 06:39 Labs: Laboratory Results - last 24 hr 08/19/21 08/19/21 08/19/21 11:58 15:33 19:35 POC Glucose 423 H* 155 H 134 H 08/20/21 07:50 POC Glucose 477 H* Assessment and Plan (1) COVID-19: Status: Acute (2) CHF exacerbation: Status: Acute Plan This is an 86 yo F with multiple medical problems including PAF on amio/xarelto, HFpEF, hypothyroidism, DM, HTN, amongst others who presents to the ED with sudden onset shortness of breath which woke her up from sleep. She is being admitted for acute HFpEF exacerbation, resp failure with hypoxia and COVID 19+ Acute respiratory failure with hypoxia due to HFpEF + COVID19 Continue oxygen - 2L NC, wean as tolerated to keep o2>92% Acute on chronic HFpEF Has elevated bnp, cxr consistent with CHF, weight gain On lasix 120mg total daily at home was initially diuresed with IV lasix, transitioned to oral lasix seen by cardiology, aldactone added on this admission BNP 813 on 08/19, dry BNP 300 continue diuresis COVID 19 cannot rule out covid 19 pneumonia at this time given hypoxia and multiple co-morbid conditions - will treat continue IV decadron x 10 days; / Remdesivir, received two days, but now dc due to increasing renal function. seen by ID, agrees with above management inflammatory biomarkers increasing but clinically appears to be improving wean o2 as tolerated DM with hyperglycemia likely r/t steroids changed to diabetic diet premeal insulin added continue basal+bolus follow blood sugar closely CKD creatinine trending up but still within baseline if continues to trend up may need to hold diuretics PAF HR controlled continue amio / metoprolol / xarelto HTN BP under adequate control continue hydralazine, metoprolol, aldactone Elevated HS trop-I trops flat seen by cardiology, no further work up hypothyroidism continue synthroid gerd continue omeprazole HLD continue statin Full Code DVT pptx, Xarelto Endorses daughter Yue as HCP Attending: Dr. Latif Patient requires continued inpatient hospitalization secondary to acute on chronic CHF and treatment including IV diuretics as well as treatment for COVID- 19 Quality Stroke Does the patient have a stroke diagnosis?: No VTE Prior VTE?: No VTE Risk Level:: Medical - moderate - high VTE Device Contraindication: Treatment Not Indicated VTE Drug Contraindication: N/A - Med Ordered
[2021-08-20 12:12] LABS: Glucose, Whole Blood 404 mg/dL (60-115)
[2021-08-20 15:31] VITALS: PULSE 49; RESP 14; TEMP 36.9; O2SAT 96
[2021-08-20 15:59] LABS: Glucose, Whole Blood 272 mg/dL (60-115)
[2021-08-20] MEDS: Lactulose 20 GM/30 ML SOLUTION 30 GM PO (16:47)
[2021-08-20 19:39] VITALS: BP 151/50; PULSE 50; RESP 14; TEMP 36.7; O2SAT 94
[2021-08-20 20:35] LABS: Glucose, Whole Blood 325 mg/dL (60-115)
[2021-08-20] MEDS: Rivaroxaban 15 MG TABLET PO (22:02)
[2021-08-20] MEDS: Furosemide 40 MG TABLET PO (22:02)
[2021-08-20] MEDS: Latanoprost 0.005 % Ophth Sol 2.5 ML DROPS 1 DROP EYE-BOTH (22:04)
[2021-08-20 23:20] VITALS: BP 161/66; PULSE 50; RESP 18; TEMP 36.7; O2SAT 96
[2021-08-21] MEDS: 0.9 % Sodium Chloride Flush 3 ML SYRINGE IVFLUSH ×2 (01:33→08:28)
[2021-08-21 04:00] VITALS: BP 149/78; PULSE 55; RESP 18; TEMP 36.2; O2SAT 95
[2021-08-21] MEDS: Omeprazole 20 MG CAPSULE.DR PO (06:11)
[2021-08-21] MEDS: Levothyroxine Sodium 125 MCG TABLET PO (06:11)
[2021-08-21 07:19] VITALS: BP 150/80; PULSE 55; RESP 19; TEMP 36.4; O2SAT 92
[2021-08-21 07:21] LABS: Hematocrit 30.9 % (37.0-47.0); Hemoglobin 10.4 g/dl (12.0-16.0); Mean Corpuscular HGB Conc 33.7 g/dl (31.0-35.0); Mean Corpuscular Hemoglobin 27.8 pg (27.0-33.0); Mean Corpuscular Volume 82.6 fL (80.0-98.0); Platelet Count 262 X10*3/uL (160-400); Red Blood Count 3.74 X10*6/uL (4.20-5.50); Red Cell Distribution Width 17.3 % (11.0-16.0); White Blood Count 10.8 X10*3/uL (4.8-10.8)
[2021-08-21 07:36] LABS: Anion Gap 16 (12-20); Blood Urea Nitrogen 67 mg/dL (9-16); Calcium 8.7 mg/dL (8.4-10.2); Carbon Dioxide 31 mmol/L (22-29); Chloride 93 mmol/L (96-108); Creatinine Clr Calc Pharmacy 23.4; Estimated Glomerular Filt Rate 34; Glucose Random 223 mg/dL (60-115); Potassium 3.8 mmol/L (3.3-5.1); Sodium 136 mmol/L (135-145)
[2021-08-21 07:41] LABS: B Type Natriuretic Peptide 601 pg/mL (<100)
[2021-08-21 08:10] LABS: Glucose, Whole Blood 228 mg/dL (60-115)
[2021-08-21] MEDS: Amiodarone HCL 200 MG TABLET PO (08:28)
[2021-08-21] MEDS: Spironolactone 25 MG TABLET 12.5 MG PO (08:28)
[2021-08-21] MEDS: Furosemide 40 MG TABLET 80 MG PO (08:28)
[2021-08-21] MEDS: hydrALAZINE HCl 50 MG TABLET PO (08:28)
[2021-08-21] MEDS: Insulin Glargine,Hum.rec.anlog 100 UNIT/ML 10 ML VIAL 10 UNIT SUBCUT (08:29)
[2021-08-21] MEDS: Insulin Lispro 100 UNIT/ML 3 ML VIAL SUBCUT ×4 (08:29→12:00)
[2021-08-21] MEDS: dexAMETHasone sod phosphate 4 MG/ML VIAL 6 MG IVPUSH (08:29)
[2021-08-21] MEDS: Metoprolol Succinate ER 100 MG TAB.ER.24H PO (08:29)
--- NOTE | 2021-08-21 09:08 | P.DS_ITS ---
DS: Providers Provider Date of Service: 08/21/21 Date of admission: 08/17/21 09:27 Primary care physician: Monique White MD Consults: 08/17/21 09:32 Consult to Cardiology Routine Consulting Provider: Neil Jeong Reason for consultation: acute CHF, covid positive Consult to Infectious Diseases Routine Consulting Provider: Erinn He Reason for consultation: COVID+, multiple risk factors, symptom onset day before admission, hypoxic Attending physician on discharge: Luis Daniel [facility] Discharging clinician: Clarissa Linares DS: Diagnosis Discharge Diagnosis (1) COVID-19: Status: Acute (2) CHF exacerbation: Status: Acute DS: Summary Hospital Course Hospital Course: HP as per admitting provider This is an 86 yo F with multiple medical problems including PAF on amio/xarelto, HFpEF, hypothyroidism, DM, HTN, amongst others who presents to the ED with sudden onset shortness of breath which woke her up from sleep. The history of obtained from the patient and her daughter (Yue Yang @ [phone]). The patient was in her usual state of health up until the evening prior to admission where she reported some chills. SHe went to bed and at some point overnight, she became short of breath and hence was brought to the ED. The patient is unable to state if her dyspnea was positional or not. She does endorse a weight gain. Her baseline weight is about 129 and when checked the day before admission it was 135. She checks her weight daily. Her daughter reports that the weakened [employer] (3-4 days ago), there was a birthday celebration for the patient and she did consume foods with a higher salt content than normal. In regards to her COVID vaccination -- she has received 2 doses + booster (in Feb 2021) of mRNA vaccine. The family has since found out that 2 other people from the weekend gathering have tested positive.? The patients main complaint currently is of nausea. She denies chest pain and her breathing has only marginally improved since arrival. In the ED, her work up revealed a positive covid test, elevated BNP (>1000), a cxr consistent with edema. She was noted to be hypoxic down to 88% initially and placed on 2L. While I was in the room, she desaturated to 81% on room air. She has been placed on 2L NC with improvement of sats in the mid 90s. She has been given a dose of IV lasix. She will be started on covid treatment and admitted for further care . Acute respiratory failure with hypoxia due to HFpEF + COVID19 Acute on chronic HFpEF Has elevated bnp, cxr consistent with CHF, weight gain On lasix 120mg total daily at home was initially diuresed with IV lasix, transitioned to oral lasix seen by cardiology, aldactone added on this admission COVID 19 continue decadron x 10 days total Remdesivir, received two days, stopped due to renal function worsening seen by ID, agrees with above management not on oxygen DM with hyperglycemia likely r/t steroids changed to diabetic diet premeal insulin added continue basal+bolus CKD creatinine trending up but still within baseline check labs next week PAF HR controlled continue amio / metoprolol / xarelto HTN BP under adequate control continue hydralazine, metoprolol, aldactone Elevated HS trop-I trops flat seen by cardiology, no further work up hypothyroidism continue synthroid gerd continue omeprazole HLD continue statin Time Spent with Patient Time attestation: Total time spent providing and/or coordinating discharge services: Discharge coordination time: Greater than 30 minutes Quality: Safe Use of Opioids Does Pt have an Active Cancer Diagnosis on the Problem List?: No Quality: Stroke Does the patient have a stroke diagnosis?: No Physical Exam 2 Vital Signs: Vital Signs: Last Vital Signs Temp 97.5 F 08/21/21 07:19 Pulse 55 08/21/21 07:19 Resp 19 08/21/21 07:19 BP 150/80 H 08/21/21 07:19 Pulse Ox 92 08/21/21 07:19 Oxygen Flow Rate 2 08/17/21 04:20 BMI result Body Mass Index 27.3 Appearing in no acute distress head is normocephalic atraumatic eyes pupils are PERRLA sclera is anicteric mouth throat mucous membranes are intact and moist neck is supple no lymphadenopathy, no JVD noted lung sounds are clear to auscultation heart regular rate rhythm, clear S1, S2 positive bowel sounds, abdomen is soft, nontender neuro patient is alert x3, no focal deficits DS: Data Data Completed and Pending Completed studies during hospitalization [Text1]: Procedures [employer]rian[employer] of Cardiac Rhythm, Single (06/01/20) Labs on day of discharge: Laboratory Results - last 24 hr 05/14/22 05/14/22 05/14/22 11:14 15:53 20:27 WBC RBC Hgb Hct MCV MCH MCHC RDW Plt Count MPV Absolute Nucleated RBC Nucleated RBC % (auto) Sodium Potassium Chloride Carbon Dioxide Anion Gap BUN Creatinine Estim Creat Clear Calc Estimated GFR POC Glucose 404 H* 272 H 325 H Random Glucose Calcium B-Natriuretic Peptide 08/21/21 08/21/21 08/21/21 07:07 07:07 07:07 WBC 10.8 RBC 3.74 L Hgb 10.4 L Hct 30.9 L MCV 82.6 MCH 27.8 MCHC 33.7 RDW 17.3 H Plt Count 262 MPV 11.0 Absolute Nucleated RBC 0.000 Nucleated RBC % (auto) 0.0 Sodium 136 Potassium 3.8 Chloride 93 L Carbon Dioxide 31 H Anion Gap 16 BUN 67 H Creatinine 1.46 H Estim Creat Clear Calc 23.4 Estimated GFR 34 POC Glucose Random Glucose 223 H Calcium 8.7 B-Natriuretic Peptide 601 H 08/21/21 07:18 WBC RBC Hgb Hct MCV MCH MCHC RDW Plt Count MPV Absolute Nucleated RBC Nucleated RBC % (auto) Sodium Potassium Chloride Carbon Dioxide Anion Gap BUN Creatinine Estim Creat Clear Calc Estimated GFR POC Glucose 228 H Random Glucose Calcium B-Natriuretic Peptide Discharge Plan Discharge Anticipated Discharge Date/Time: 08/21/21 09:03 Patient Disposition: Home, Self-Care Discharge Diagnosis: HFpEF Covid 19 Referrals: Po,Monique Wesley MD [Primary Care Provider] - 1 Week Discharge Medications: New spironolactone 25 mg Tablet 12.5 mg PO DAILY Qty: 30 0RF Protocol: Hold for SBP< HOLD for SBP < : 90 dexamethasone [Decadron] 6 mg tablet 6 mg PO DAILY Qty: 5 0RF Continued [employer] SoloStar U-300 Insulin 300 unit/mL (1.5 mL) insulin pen 12 unit subcut QAM Qty: 3 11RF Rx Instructions: or as directed (DME) FreeStyle Madeline 14 Day Sensor Kit See Rx Instructions .ROUTE .MEDSUPPLY Qty: 1 6RF Rx Instructions: Dx: E11.65 As directed, 14 days levothyroxine 125 mcg tablet 125 mcg PO DAILY Qty: 90 2RF simvastatin 10 mg tablet 10 mg PO BEDTIME Qty: 90 3RF metoprolol succinate 100 mg tablet extended release 24 hr 100 mg PO DAILY 90 Days Qty: 90 3RF Xarelto 15 mg tablet 15 mg PO QPM Qty: 90 3RF Rx Instructions: must administer with evening meal travoprost 0.004 % drops 1 drp ophthalmic (eye) BEDTIME 0RF omeprazole 20 mg capsule,delayed release(DR/EC) 20 mg PO DAILY@0630 0RF hydralazine 25 mg tablet 25 mg PO DAILY PRN (Reason: HIGH BLOOD PRESSURE) 0RF furosemide 80 mg tablet 40 mg PO BEDTIME 0RF insulin lispro [Humalog KwikPen Insulin] 100 unit/mL insulin pen 0 sliding scale dose subcut TIDAC 0RF Protocol: Insulin Correction Scale Less than or equal to 110 ---- Give (units): 0 111 to 150 Give (units): 0 151 to 200 Give (units): 2 201 to 250 Give (units): 4 251 to 300 Give (units): 6 301 to 350 Give (units): 8 Greater than 350 Give (units): 10 Call MD if Blood Glucose > : 350 Rx Instructions: or as directed according to sliding scale lactulose 10 gram/15 mL solution 45 ml PO DAILY PRN (Reason: constipation) 0RF acetaminophen 500 mg Tablet 1,000 mg PO TID 0RF glycerin (adult) Suppository 1 supp [place] DAILY PRN (Reason: Constipation) 0RF metolazone 2.5 mg tablet 1.25 mg PO DAILY PRN (Reason: Weight Gain) 0RF amiodarone 200 mg tablet 200 mg PO DAILY 90 Days Qty: 90 3RF hydralazine 25 mg tablet 50 mg PO DAILY 0RF furosemide 80 mg tablet 80 mg PO DAILY 0RF Diet: advance to usual diet Activity on Discharge: As tolerated Stand Alone Forms: Patient Portal Discharge page Care Plan Goals: complete resolution of symptoms Health Concerns: HFpEF Covid 19 Plan of Treatment: Follow-up with primary care provider as needed Take all medications as prescribed Assessment: see discharge summary
[2021-08-21 11:39] VITALS: BP 161/80; PULSE 60; RESP 18; TEMP 36.6; O2SAT 97
[2021-08-21 11:44] LABS: Glucose, Whole Blood 288 mg/dL (60-115)
--- NOTE | 2021-08-21 14:25 | MHC.CM.PN ---
D/C order for home, self care. CM acknowledge.
== END 2021-08-21 15:48 | disposition home health service (06) | DRG 177 ==
LOC: HO.ED 06:36 → HO.EDOVER 09:56 → HO.IMC 08-18 00:20
PROVIDERS: Physician Assistant Medical; Admitting Provider Family Medicine; Emergency Provider Emergency Medicine; PCP Internal Medicine; Visit Provider Nurse Practitioner Acute Care
DX: U07.1 COVID-19 (principal); I50.33 Acute on chronic diastolic (congestive) heart failure; J96.01 Acute respiratory failure with hypoxia; I13.0 Hypertensive heart and chronic kidney disease with heart failure and stage 1 through stage 4 chronic kidney disease, or unspecified chronic kidney disease; K21.9 Gastro-esophageal reflux disease without esophagitis; N18.30 Chronic kidney disease, stage 3 unspecified; I48.0 Paroxysmal atrial fibrillation; E03.9 Hypothyroidism, unspecified; E11.22 Type 2 diabetes mellitus with diabetic chronic kidney disease; E11.65 Type 2 diabetes mellitus with hyperglycemia; Z96.651 Presence of right artificial knee joint; Z96.642 Presence of left artificial hip joint; Z88.0 Allergy status to penicillin; Z88.1 Allergy status to other antibiotic agents; Z88.2 Allergy status to sulfonamides; Z88.8 Allergy status to other drugs, medicaments and biological substances; Z79.4 Long term (current) use of insulin; Z79.890 Hormone replacement therapy; Z79.899 Other long term (current) drug therapy
CPT/HCPCS: 36415; 71045; 80048; 80076; 81003; 82728; 82803; 82947; 83615; 83735; 83880; 84145; 84484; 85025; 85027; 86140; 87635; 93005; 96374; 99285; J0248; J1100; J1940; J2405

== ENCOUNTER 2021-08-25 14:31 | Outpatient (REF) | payer MEDICARE, SELFPAY ==
[2021-08-25 14:48] LABS: Appearance Urine HAZY; Color Urine YELLOW; Glucose Urine UA >=1000 MG/DL (NEG); Leukocyte Esterase Urine NEG (NEG); Nitrite Urine NEG (NEG); PH 5.5 (5.0-8.0); Specific Gravity - Urine <= 1.005 (1.005-1.025); Urine Blood NEG (NEG); Urine Ketones NEG (NEG); Urine Protein NEG (NEG-TRACE)
[2021-08-25 15:25] LABS: Bacteria Urine TRACE /LPF; RBC Urine 0-2 /HPF (0); Squamous Epithelial Cell Urine TRACE /LPF
== END 2021-08-25 14:32 | disposition home or self-care (01) ==
LOC: HO.LNP 14:31
PROVIDERS: Visit Provider Internal Medicine
DX: Z13.89 Encounter for screening for other disorder (principal)
CPT/HCPCS: 81001

== ENCOUNTER 2021-08-26 11:03 | Outpatient (REF) | payer MEDICARE, SELFPAY ==
[2021-08-26 11:18] LABS: MANUAL DIFF FLAG NO
[2021-08-26 11:51] LABS: Basophils Percent Auto 0.1 % (0-2); Eosinophils Absolute Auto 0.1 X10*3/uL (0.0-0.4); Eosinophils Percent Auto 0.3 % (0-4); Hematocrit 35.1 % (37.0-47.0); Hemoglobin 11.4 g/dl (12.0-16.0); Imm Gran Abs Auto 0.39 X10*3/uL (0.00-0.03); Imm Gran Pct Auto 2.5 % (0.0-0.4); Lymphocytes Absolute Auto 1.9 X10*3/uL (1.2-4.9); Mean Corpuscular HGB Conc 32.5 g/dl (31.0-35.0); Mean Corpuscular Volume 83.2 fL (80.0-98.0); Monocytes Absolute Auto 1.4 X10*3/uL (0.1-1.2); Monocytes Percent Auto 9.1 % (2-11); Platelet Count 401 X10*3/uL (160-400); Red Blood Count 4.22 X10*6/uL (4.20-5.50); Red Cell Distribution Width 17.2 % (11.0-16.0); White Blood Count 15.8 X10*3/uL (4.8-10.8)
[2021-08-26 11:59] LABS: Appearance Urine HAZY; Color Urine YELLOW; Glucose Urine UA >=1000 MG/DL (NEG); Leukocyte Esterase Urine NEG (NEG); Nitrite Urine NEG (NEG); PH 5.5 (5.0-8.0); Urine Blood NEG (NEG); Urine Ketones NEG (NEG); Urine Protein NEG (NEG-TRACE)
[2021-08-26 12:15] LABS: Mucus Urine 1+ /LPF; RBC Urine 0 /HPF (0); Squamous Epithelial Cell Urine 1+ /LPF
[2021-08-26 12:19] LABS: Alanine Aminotransferase 23 U/L (0-31); Albumin Level 3.7 g/dL (3.5-5.0); Alkaline Phosphatase 88 U/L (39-117); Anion Gap 14 (12-20); Aspartate Amino Transferase 13 U/L (5-31); Bilirubin Total 0.6 mg/dL (0.0-1.0); Blood Urea Nitrogen 55 mg/dL (9-16); Calcium 9.1 mg/dL (8.4-10.2); Carbon Dioxide 29 mmol/L (22-29); Chloride 90 mmol/L (96-108); Estimated Glomerular Filt Rate 28; Glucose Random 355 mg/dL (60-115); Magnesium 3.3 mg/dL (1.6-2.6); Sodium 128 mmol/L (135-145); Total Protein 6.4 g/dL (6.5-8.0)
[2021-08-26 12:21] LABS: B Type Natriuretic Peptide 375 pg/mL (<100)
[2021-08-26 12:36] LABS: Thyroid Stimulating Hormone 0.32 uIU/mL (0.32-4.0)
== END 2021-08-26 11:04 | disposition home or self-care (01) ==
LOC: HO.LAB 11:03
PROVIDERS: PCP Internal Medicine; Visit Provider Internal Medicine
DX: Z13.89 Encounter for screening for other disorder (principal)
CPT/HCPCS: 36415; 80053; 81001; 81003; 83735; 83880; 84100; 84443; 85025

== ENCOUNTER 2021-08-28 12:29 | Inpatient (IN) | payer MEDICARE, SELFPAY ==
--- NOTE | ~2021-08-28 | XR_ITS ---
EXAMINATION: XR CHEST CLINICAL INFORMATION: Weakness COMPARISON: August 17, 2021 TECHNIQUE: AP portable view of the chest was obtained. FINDINGS: There has been significant improvement in the bilateral interstitial and airspace disease that was present on prior study there remains some linear scarring or atelectasis left lung base. Heart normal size. No evidence of pulmonary edema. No pneumothorax or significant pleural effusion. XR/XR chest 1V IMPRESSION: Resolution of previous interstitial and airspace disease from study of August 17, 2021.
[2021-08-28 12:37] VITALS: BP 115/80; PULSE 62; RESP 18; TEMP 36.7; O2SAT 99; BMI 25.0
--- NOTE | 2021-08-28 12:49 | ECG_ITS ---
Test Reason : WEAKNESS Blood Pressure : / mmHG Vent. Rate : 061 BPM Atrial Rate : 061 BPM P-R Int : 174 ms QRS Dur : 112 ms QT Int : 470 ms P-R-T Axes : 046 -41 037 degrees QTc Int : 473 ms Normal sinus rhythm Left axis deviation Left ventricular hypertrophy with repolarization abnormality ( R in aVL , Riley product ) Abnormal ECG When compared with ECG of 17-AUG-2021 09:47, No significant changes seen Referred By: Umm Lopez Electronically Signed By:Ulises Talavera
--- NOTE | 2021-08-28 13:13 | ED_ITS ---
HPI - General Adult General Chief complaint: General Medical Stated complaint: CHF/Low blood pressure Time Seen by Provider: 08/28/21 12:31 Source: patient and family Mode of arrival: ambulatory Limitations: no limitations History of Present Illness HPI narrative: Admitted here 08/18 to 08/21 for COVID and CHF - was on lasix 120mg daily at home, added on aldactone 12.5mg, sent home after treatments and remdesivir along with dexamethasone. Since going home on 08/21 BP 80/50 she is weak and dizzy with headaches. Daughter has not given any lasix, she has been given aldactone but not today and only the first day home did she get metoprolol. Daughter notes she is worried about dehydration as her mom has lost 10 lbs. MD complaint: hypotension, weakness at home Onset (ago): day(s) (7 days ago) Severity: moderate Quality: dull Relieving factors: none Exacerbating factors: medication and movement Associated symptoms: headaches, loss of appetite and malaise Treatments prior to arrival: none Related Data Home Medications Medication Instructions Recorded Confirmed travoprost 0.004 % eye drops 1 drp OPHTHALMIC (EYE) BEDTIME 06/01/20 08/23/21 metolazone 2.5 mg tablet 1.25 mg PO DAILY PRN tab 03/01/21 08/23/21 omeprazole 20 mg capsule,delayed 20 mg PO DAILY@0630 cap 03/01/21 08/23/21 release furosemide 80 mg tablet 80 mg PO DAILY 08/08/21 08/23/21 hydralazine 25 mg tablet 50 mg PO DAILY tab 08/08/21 08/23/21 acetaminophen 500 mg tablet 1,000 mg PO TID 08/17/21 08/23/21 furosemide 80 mg tablet 40 mg PO BEDTIME 08/17/21 08/23/21 glycerin (adult) 1 supp [place] DAILY PRN 08/17/21 08/23/21 hydralazine 25 mg tablet 25 mg PO DAILY PRN 08/17/21 08/23/21 insulin lispro 100 unit/mL 0 sliding scale dose SUBCUT TIDAC 08/17/21 08/23/21 subcutaneous pen (Humalog KwikPen (U-100) Insulin) lactulose 10 gram/15 mL oral 45 ml PO DAILY PRN 08/17/21 08/23/21 solution Previous Rx's Medication Instructions Recorded flash glucose sensor (FreeStyle #1 ea 08/28/20 Madeline 14 Day Sensor) levothyroxine 125 mcg tablet 125 mcg PO DAILY #90 tab 05/06/21 amiodarone 200 mg tablet 200 mg PO DAILY 90 Days #90 tab 05/23/21 metoprolol succinate 100 mg 100 mg PO DAILY 90 Days #90 tab 07/12/21 tablet,extended release 24 hr simvastatin 10 mg tablet 10 mg PO BEDTIME #90 tab 07/12/21 rivaroxaban 15 mg tablet (Xarelto) 15 mg PO QPM #90 tab 08/08/21 dexamethasone 6 mg tablet 6 mg PO DAILY #5 tab 08/21/21 (Decadron) spironolactone 25 mg tablet 12.5 mg PO DAILY #30 tab 08/21/21 ciprofloxacin HCl 250 mg tablet 250 mg PO BID 5 Days #10 tab 08/26/21 (Cipro) insulin glargine U-300 conc 300 12 unit (0.04 mL) SUBCUT QAM #3 ml 08/26/21 unit/mL (1.5 mL) subcutaneous pen (Toujeo SoloStar U-300 Insulin) Allergies Allergy/AdvReac Type Severity Reaction Status Date / Time codeine Allergy Intermediate TACHYCARDIA Verified 08/28/21 12:37 nitrofurantoin [Macrobid] Allergy Unknown confusion Verified 08/28/21 12:37 pravastatin Allergy Unknown Unknown Verified 08/28/21 12:37 rosuvastatin [Crestor] Allergy Unknown Unknown Verified 08/28/21 12:37 Sulfa (Sulfonamide Allergy Unknown unknown Verified 08/28/21 12:37 Antibiotics) sulfamethoxazole Allergy Unknown Unknown Verified 08/28/21 12:37 [From Bactrim] trimethoprim [From Bactrim] Allergy Unknown Unknown Verified 08/28/21 12:37 amlodipine AdvReac Intermediate leg Verified 08/28/21 12:37 swelling Review of Systems Review of Systems: Constitutional : No Fever, No Chills, pos Fatigue, pos Malaise ENT/Mouth : No sore throat, No Rhinorrhea Eyes: No Eye Pain, No Swelling, No Redness Cardiovascular : No Chest Pain, No SOB Respiratory : No Cough, No Sputum, No Wheezing Gastrointestinal : No Nausea, No Vomiting, No Diarrhea, No abdominal Pain Genitourinary : No Dysuria, No Urinary Frequency, No Hematuria, Musculoskeletal : No joint pain, No Myalgias, No Joint Swelling Skin : No Skin Lesions, No rash Neuro : pos Weakness, No Numbness, pos Dizziness, pos Headache Psych : No Anxiety/Panic, No Depression Heme/Lymph: No Bruising, No Bleeding,No Lymphadenopathy Endocrine : No Polyuria, No Polydipsia All other systems reviewed and are negative [facility] Past Medical History Attestation statement: The following information was validated with the patient. 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 Chronic heart failure with preserved ejection fraction (HFpEF) Degenerative disc disease, lumbar Disc degeneration, lumbar Essential hypertension Hyperkalemia Hypothyroid Iliotibial band syndrome of right side Osteopenia Spinal stenosis of lumbar region Type 2 diabetes mellitus with hyperglycemia Surgical History History of appendectomy History of cataract surgery History of section History of cholecystectomy History of eye surgery History of hip replacement History of knee replacement History of removal of cyst Family History Family History Father CVD (cardiovascular disease) Mother CVD (cardiovascular disease) Stroke Social History Social History Household Members: None Household Members Other:: son comes 3 days a week, daughter lives 5 minutes away visits frequently Housing: House Do you presently have visiting nurse or other home services: No (used to get vna services) Alcohol intake: never Patient Tobacco Use Status: Former Tobacco user Tobacco use type: Cigarette Years Smoked: <1 e-Cigarette/Vaping Use: Never Used Second Hand Smoke Exposure: No Advance Directives: No Advance Directives Information Provided: No service: No Current occupational status: retired Physical Exam ED Vital Signs: Vital Signs - 24 hr 08/28/21 12:37 08/28/21 14:06 08/28/21 14:07 Temperature 98.1 F Pulse Rate 62 63 64 Respiratory Rate 18 Blood Pressure 115/80 146/50 H 140/40 H Pulse Oximetry 99 08/28/21 14:08 Temperature Pulse Rate 66 Respiratory Rate Blood Pressure 95/40 L Pulse Oximetry BMI result Body Mass Index 25.0 Appearance: Alert. Oriented X3. No acute distress. Eyes: Pupils equal, round and reactive to light. ENT: Pharynx normal. Neck: Normal inspection. Neck supple. CVS: Normal heart rate and rhythm. Pulses normal. Respiratory: No respiratory distress. Breath sounds normal. Abdomen: Soft and nontender. Skin: Skin warm and dry. Normal skin color. Normal skin turgor. Extremities: No lower extremity edema. No calf ttp Neuro: Oriented X 3. No motor deficit. No sensory deficit. Course Course Course Narrative: + ortho static VS , will hydrate gently and admit patient BP 140 to 90 Medical Decision Making MDM Narrative Medical decision making narrative: 86 yo female with hx of afib on xarelto, DM, HLD, CHF, UTI recently dx with COVID and admitted and DC on 08/21 for UTI, COVID, and CHF exacerbation normally on 120mg daily of lasix was added on aldactone 12.5 daily. Her daughter notes since she came home she is not taking anything but the aldactone and not today due to low BPs 80/50s and not feeling well. She has malaise, dizziness, headaches. At this time she also lost 10lbs and has no signs of fluid overload. Daughter suspects dehydration. Will obtain labs, gentle fluids, ortho VS and possible admit Lab Data Result diagrams: 08/28/21 13:18 08/28/21 13:18 Labs: Lab Results 08/28/21 08/28/21 08/28/21 Range/Units 13:18 13:18 13:18 WBC 13.8 H (4.8-10.8) X10*3/uL RBC 3.96 L (4.20-5.50) X10*6/uL Hgb 11.1 L (12.0-16.0) g/dl Hct 33.4 L (37.0-47.0) % MCV 84.3 (80.0-98.0) fL MCH 28.0 (27.0-33.0) pg MCHC 33.2 (31.0-35.0) g/dl RDW 17.4 H (11.0-16.0) % Plt Count 358 (160-400) X10*3/uL MPV 10.7 (9.4-12.3) fL Immature Gran % (Auto) 4.0 H (0.0-0.4) % Neut % (Auto) 76.2 H (45-73) % Lymph % (Auto) 9.6 L (20-40) % [place] % (Auto) 8.9 (2-11) % Eos % (Auto) 1.1 (0-4) % Baso % (Auto) 0.2 (0-2) % Lymph # (Auto) 1.3 (1.2-4.9) X10*3/uL [place] # (Auto) 1.2 (0.1-1.2) X10*3/uL Eos # (Auto) 0.2 (0.0-0.4) X10*3/uL Baso # (Auto) 0.0 (0.0-0.2) X10*3/uL Abs Immat Gran (auto) 0.55 H (0.00-0.03) X10*3/uL Absolute Neuts (auto) 10.5 H (2.0-8.3) x10*3/uL Absolute Nucleated RBC 0.000 (0.0-0.012) X10*3/uL Nucleated RBC % (auto) 0.0 (0.0-0.2) /100WBC PT 14.7 H (9.9-13.0) SEC INR 1.3 H (0.9-1.1) Sodium 125 L (135-145) mmol/L Potassium 5.2 H (3.3-5.1) mmol/L Chloride 93 L (96-108) mmol/L Carbon Dioxide 27 (22-29) mmol/L Anion Gap 10 L (12-20) BUN 49 H (9-16) mg/dL Creatinine 1.67 H (0.5-1.4) mg/dL Estim Creat Clear Calc 18.8 Estimated GFR 29 Random Glucose 273 H (60-115) mg/dL Calcium 8.1 L D (8.4-10.2) mg/dL Magnesium 3.0 H (1.6-2.6) mg/dL Total Bilirubin 0.5 (0.0-1.0) mg/dL Direct Bilirubin 0.2 (0.0-0.5) mg/dL AST 21 D (5-31) U/L ALT 26 (0-31) U/L Alkaline Phosphatase 82 (39-117) U/L Troponin I High Sens (<3.5-17.0) ng/L B-Natriuretic Peptide (<100) pg/mL Total Protein 5.8 L (6.5-8.0) g/dL Albumin 3.3 L (3.5-5.0) g/dL 08/28/21 Range/Units 13:18 WBC (4.8-10.8) X10*3/uL RBC (4.20-5.50) X10*6/uL Hgb (12.0-16.0) g/dl Hct (37.0-47.0) % MCV (80.0-98.0) fL MCH (27.0-33.0) pg MCHC (31.0-35.0) g/dl RDW (11.0-16.0) % Plt Count (160-400) X10*3/uL MPV (9.4-12.3) fL Immature Gran % (Auto) (0.0-0.4) % Neut % (Auto) (45-73) % Lymph % (Auto) (20-40) % [place] % (Auto) (2-11) % Eos % (Auto) (0-4) % Baso % (Auto) (0-2) % Lymph # (Auto) (1.2-4.9) X10*3/uL [place] # (Auto) (0.1-1.2) X10*3/uL Eos # (Auto) (0.0-0.4) X10*3/uL Baso # (Auto) (0.0-0.2) X10*3/uL Abs Immat Gran (auto) (0.00-0.03) X10*3/uL Absolute Neuts (auto) (2.0-8.3) x10*3/uL Absolute Nucleated RBC (0.0-0.012) X10*3/uL Nucleated RBC % (auto) (0.0-0.2) /100WBC PT (9.9-13.0) SEC INR (0.9-1.1) Sodium (135-145) mmol/L Potassium (3.3-5.1) mmol/L Chloride (96-108) mmol/L Carbon Dioxide (22-29) mmol/L Anion Gap (12-20) BUN (9-16) mg/dL Creatinine (0.5-1.4) mg/dL Estim Creat Clear Calc Estimated GFR Random Glucose (60-115) mg/dL Calcium (8.4-10.2) mg/dL Magnesium (1.6-2.6) mg/dL Total Bilirubin (0.0-1.0) mg/dL Direct Bilirubin (0.0-0.5) mg/dL AST (5-31) U/L ALT (0-31) U/L Alkaline Phosphatase (39-117) U/L Troponin I High Sens 24.4 H D (<3.5-17.0) ng/L B-Natriuretic Peptide 146 H (<100) pg/mL Total Protein (6.5-8.0) g/dL Albumin (3.5-5.0) g/dL ECG Data Attestation: I personally reviewed and interpreted this ECG as follows: Interpretation: Rate: 61 Rhythm: NSR [place]: left, VH Normal P waves. Normal DANIEL. Normal QRS complex. ST T wave : normal no KATHERINE qTC: normal prior studies: no change from prior The study has been interpreted contemporaneously by me. . Discharge Plan Discharge Clinical Impression: Weakness, Acute hyponatremia, Orthostatic hypotension Patient Disposition: Admitted As Inpatient
[2021-08-28 13:23] LABS: MANUAL DIFF FLAG NO
[2021-08-28 13:25] LABS: Basophils Percent Auto 0.2 % (0-2); Eosinophils Absolute Auto 0.2 X10*3/uL (0.0-0.4); Eosinophils Percent Auto 1.1 % (0-4); Hematocrit 33.4 % (37.0-47.0); Hemoglobin 11.1 g/dl (12.0-16.0); Imm Gran Abs Auto 0.55 X10*3/uL (0.00-0.03); Lymphocytes Absolute Auto 1.3 X10*3/uL (1.2-4.9); Lymphocytes Percent Auto 9.6 % (20-40); Mean Corpuscular HGB Conc 33.2 g/dl (31.0-35.0); Mean Corpuscular Volume 84.3 fL (80.0-98.0); Mean Platelet Volume 10.7 fL (9.4-12.3); Monocytes Absolute Auto 1.2 X10*3/uL (0.1-1.2); Monocytes Percent Auto 8.9 % (2-11); Neutrophils Absolute Auto 10.5 x10*3/uL (2.0-8.3); Neutrophils Percent Auto 76.2 % (45-73); Platelet Count 358 X10*3/uL (160-400); Red Blood Count 3.96 X10*6/uL (4.20-5.50); Red Cell Distribution Width 17.4 % (11.0-16.0); White Blood Count 13.8 X10*3/uL (4.8-10.8)
[2021-08-28 13:31] LABS: INTERNATIONAL NORM RATIO 1.3 (0.9-1.1); Prothrombin Time 14.7 SEC (9.9-13.0)
[2021-08-28 13:50] LABS: B Type Natriuretic Peptide 146 pg/mL (<100); Troponin-I High Sensitivity 24.4 ng/L (<3.5-17.0)
[2021-08-28 14:01] LABS: Alanine Aminotransferase 26 U/L (0-31); Albumin Level 3.3 g/dL (3.5-5.0); Alkaline Phosphatase 82 U/L (39-117); Anion Gap 10 (12-20); Aspartate Amino Transferase 21 U/L (5-31); Bilirubin Direct 0.2 mg/dL (0.0-0.5); Bilirubin Total 0.5 mg/dL (0.0-1.0); Blood Urea Nitrogen 49 mg/dL (9-16); Calcium 8.1 mg/dL (8.4-10.2); Carbon Dioxide 27 mmol/L (22-29); Chloride 93 mmol/L (96-108); Creatinine Clr Calc Pharmacy 18.8; Estimated Glomerular Filt Rate 29; Glucose Random 273 mg/dL (60-115); Potassium 5.2 mmol/L (3.3-5.1); Sodium 125 mmol/L (135-145); Total Protein 5.8 g/dL (6.5-8.0)
[2021-08-28 14:06] VITALS: BP 146/50; PULSE 63
[2021-08-28 14:07] VITALS: BP 140/40; PULSE 64
[2021-08-28 14:08] VITALS: BP 95/40; PULSE 66
[2021-08-28] MEDS: 0.9 % Sodium Chloride 500 ML IV (14:13)
[2021-08-28 15:01] LABS: COVID-19 Test Positive (Negative)
--- NOTE | 2021-08-28 15:14 | PM.IMHP ---
History of Present Illness Date of Service: 08/28/21 Attending physician on admission: Dru Guthrie Chief Complaint: Low blood pressure This is an 86 year old female who was brought to the ED by her daughter for dizziness. She was admitted to [facility] from 08/17 to 08/21 for COVID 19 and acute CHF exacerbation. During that time she was treated with IV lasix. She was seen by cardiology and aldactone was added to her regimen. Her blood pressure during that admission was primarily 140s-150s systolic. On discharge the only medication change was the addition of Aldactone. She was also discharged to complete course dexamethasone, which she has since completed. Since discharge from the hospital her appetite has been good, she has had no nausea, vomiting, diarrhea. Her daughter monitors her blood pressure closely and since Sunday it has been on the lower side. It has been as low as high 80s systolic. She has not been taking her metoprolol or lasix for that reason. Today in the emergency department her blood pressure was 146/50 but dropped to 95/40 upon standing. Her sodium levels were also low. She received 500cc of NS and the decision was made to admit her for further management. Of note, she was recently diagnosed to have a UTI and was started on cirpofloxacin. Her daughter reports that she has taken 3 doses. 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 Chronic heart failure with preserved ejection fraction (HFpEF) Degenerative disc disease, lumbar Disc degeneration, lumbar Essential hypertension Hyperkalemia Hypothyroid Iliotibial band syndrome of right side Osteopenia Spinal stenosis of lumbar region Type 2 diabetes mellitus with hyperglycemia Family History Father CVD (cardiovascular disease) Mother CVD (cardiovascular disease) Stroke Surgical History History of appendectomy History of cataract surgery History of section History of cholecystectomy History of eye surgery History of hip replacement History of knee replacement History of removal of cyst Social History Household Members: None Household Members Other:: son comes 3 days a week, daughter lives 5 minutes away visits frequently Housing: House Do you presently have visiting nurse or other home services: No (used to get vna services) Alcohol intake: never Patient Tobacco Use Status: Former Tobacco user Tobacco use type: Cigarette Years Smoked: <1 e-Cigarette/Vaping Use: Never Used Second Hand Smoke Exposure: No Advance Directives: No Advance Directives Information Provided: No service: No Current occupational status: retired [email or web address] Allergies Allergy/AdvReac Type Severity Reaction Status Date / Time codeine Allergy Intermediate TACHYCARDIA Verified 08/28/21 12:37 nitrofurantoin [Macrobid] Allergy Unknown confusion Verified 08/28/21 12:37 pravastatin Allergy Unknown Unknown Verified 08/28/21 12:37 rosuvastatin [Crestor] Allergy Unknown Unknown Verified 08/28/21 12:37 Sulfa (Sulfonamide Allergy Unknown unknown Verified 08/28/21 12:37 Antibiotics) sulfamethoxazole Allergy Unknown Unknown Verified 08/28/21 12:37 [From Bactrim] trimethoprim [From Bactrim] Allergy Unknown Unknown Verified 08/28/21 12:37 amlodipine AdvReac Intermediate leg Verified 08/28/21 12:37 swelling Active Medications: Current Medications Acetaminophen (Acetaminophen 325 Mg Tablet) 650 mg PO Q6H PRN PRN Reason: Pain, Mild (Pain Scale 1-3) Dextrose (Dextrose 50 % 25 Gm/50 Ml Syringe) 25 gm IVPUSH Q15M PRN; Protocol PRN Reason: per Hypoglycemia Standing Ord. Docusate Sodium (Docusate Sodium 100 Mg Capsule) 100 mg PO DAILY PRN PRN Reason: Constipation Glucose (Glucose Gel 15 Gm Gel..Gram.) 15 gm PO Q15M PRN; Protocol PRN Reason: per Hypoglycemia Standing Ord. Insulin Human Lispro (Insulin Lispro 100 Unit/Ml 3 Ml Vial) 0 unit SUBCUT [facility]; Protocol Pharmacy Consult (Consult Rx Perform Med Rec) 1 each MISCELLANE ONCE PRN PRN Reason: Consult order Sodium Chloride (0.9 % Sodium Chloride Flush 3 Ml Syringe) 3 [facility] Home Medications Medication Instructions Recorded Confirmed Last Taken Type travoprost 0.004 % eye drops 1 drp OPHTHALMIC (EYE) BEDTIME 06/01/20 08/28/21 08/16/21 History metolazone 2.5 mg tablet 1.25 mg PO DAILY PRN tab 03/01/21 08/28/21 Unknown History omeprazole 20 mg capsule,delayed 20 mg PO DAILY@0630 cap 03/01/21 08/28/21 08/28/21 History release furosemide 80 mg tablet 80 mg PO DAILY 08/08/21 08/28/21 08/16/21 History acetaminophen 500 mg tablet 1,000 mg PO TID 08/17/21 08/28/21 08/16/21 History furosemide 80 mg tablet 40 mg PO BEDTIME 08/17/21 08/28/21 08/16/21 History glycerin (adult) 1 supp [place] DAILY PRN 08/17/21 08/28/21 Unknown History hydralazine 25 mg tablet 25 mg PO TID 08/17/21 08/28/21 Unknown History insulin lispro 100 unit/mL See Protocol SUBCUT TIDAC 08/17/21 08/28/21 08/16/21 History subcutaneous pen (Humalog KwikPen (U-100) Insulin) lactulose 10 gram/15 mL oral 30 ml PO DAILY PRN 08/17/21 08/28/21 08/16/21 History solution hydralazine 10 mg tablet 1 tab PO ONCE PRN 08/28/21 08/28/21 Unknown History rivaroxaban 15 mg tablet (Xarelto) 15 mg PO DAILY@1700 08/28/21 08/28/21 Unknown History Physical Exam Vital Signs and Narrative: Vital Signs: Last Vital Signs Temp 98.1 F 08/28/21 12:37 Pulse 66 08/28/21 14:08 Resp 18 08/28/21 12:37 BP 95/40 L 08/28/21 14:08 Pulse Ox 99 08/28/21 12:37 BMI result Body Mass Index 25.0 Const: General: cooperative, comfortable and alert HEENT: Other: moist mucous membranes Eyes: Pupils: Equal, round and reactive pupils present EOM: EOMs intact bilaterally Resp: Effort & Inspection: normal respiratory effort and able to speak in complete sentences Auscultation: clear to auscultation bilaterally Cardio: Rate: regular rate Heart sounds: S1 normal heart sound present and S2 normal heart sound present GI: Inspection: No distended Palpation (GI): Soft to palpation and nontender Neuro: Cranial nerves: Yes Equal, round and reactive pupils present Extrem: Other: moving all 4 extremities spontaneously; no leg edema Results Labs CBC and Chem 7: 08/28/21 13:18 08/28/21 13:18 Labs: Laboratory Results - last 24 hr 08/28/21 08/28/21 08/28/21 13:18 13:18 13:18 MCV 84.3 MCH 28.0 MCHC 33.2 RDW 17.4 H Plt Count 358 MPV 10.7 Immature Gran % (Auto) 4.0 H Neut % (Auto) 76.2 H Lymph % (Auto) 9.6 L [place] % (Auto) 8.9 Eos % (Auto) 1.1 Baso % (Auto) 0.2 Lymph # (Auto) 1.3 [place] # (Auto) 1.2 Eos # (Auto) 0.2 Baso # (Auto) 0.0 Abs Immat Gran (auto) 0.55 H Absolute Neuts (auto) 10.5 H Absolute Nucleated RBC 0.000 Nucleated RBC % (auto) 0.0 PT 14.7 H INR 1.3 H Anion Gap 10 L Estim Creat Clear Calc 18.8 Estimated GFR 29 Random Glucose 273 H Calcium 8.1 L D Magnesium 3.0 H Total Bilirubin 0.5 Direct Bilirubin 0.2 AST 21 D ALT 26 Alkaline Phosphatase 82 Troponin I High Sens B-Natriuretic Peptide Total Protein 5.8 L Albumin 3.3 L COVID-19 (LING) COVID-19 Clin Com 08/28/21 08/28/21 13:18 14:45 MCV MCH MCHC RDW Plt Count MPV Immature Gran % (Auto) Neut % (Auto) Lymph % (Auto) [place] % (Auto) Eos % (Auto) Baso % (Auto) Lymph # (Auto) [place] # (Auto) Eos # (Auto) Baso # (Auto) Abs Immat Gran (auto) Absolute Neuts (auto) Absolute Nucleated RBC Nucleated RBC % (auto) PT INR Anion Gap Estim Creat Clear Calc Estimated GFR Random Glucose Calcium Magnesium Total Bilirubin Direct Bilirubin AST ALT Alkaline Phosphatase Troponin I High Sens 24.4 H D B-Natriuretic Peptide 146 H Total Protein Albumin COVID-19 (LING) Positive A COVID-19 Clin Com See Note Imaging Radiologist's Impressions: Impressions Chest X-Ray 08/28/21 13:00 IMPRESSION: Resolution of previous interstitial and airspace disease from study of August 17, 2021. Assessment and Plan (1) Acute hyponatremia: Status: Acute (2) Orthostatic hypotension: Status: Acute Plan This is an 86 year old female with history of PAF on xrealto, HFpEF, hypothyroidism, DM, HTN, and recent admission for COVID-19 and CHF exacerbation brought to the emergency department by her daughter due to dizziness and low blood pressure since Sunday. Hyponatremia Sodium corrected for hyperglycemia is 128 received 500 cc ns in ED appears euvolemic. will hold off on any more fluid at this time likely r/t diuretics check urine studies TSH from 08/26 0.32, wnl hold diuretics Orthostatic hypotension hold diuretics repeat in am UTI diagnosed as outpatient continue cipro Hyperkalemia, mild k 5.2 hold aldactone follow BMP COVID 19 recent admission for covid 19 tested positive again but no active infection. has completed course of decadron. asymptomatic. HTN hold all BP meds and monitor BP closely HFpEF appears euvolemic. BNP 146 hold lasix for orthostatic hypotention d/c aldactone monitor fluid status closely will likely need to be on lower dose of lasix on discharge hold metoprolol for now CKD3/4 creatinine within baseline elevated troponin no chest pain likely elevated due to decreased clearance from renal failure much lower then on previous admission DM will convert Toujeo to Lantus SSI, POCs PAF in sinus continue amiodarone continue AC with xarelto hold metoprolol hypothyroidism continue synthroid HLD continue statin dvt ppx - xarelto code status - full code attending - dr. guthrie patient will likely require two midnight stay in the hospital for management of hyponatremia, orthostatic hypotension and titration of blood pressure medication Quality Stroke Does the patient have a stroke diagnosis?: No VTE Prior VTE?: No VTE Risk Level:: Medical - moderate - high VTE Device Contraindication: N/A - Device Ordered VTE Drug Contraindication: N/A - Med Ordered
--- NOTE | 2021-08-28 15:34 | PHA.MEDREC ---
Pharmacy Consult ? Medication Reconciliation Pharmacy has completed the medication reconciliation. SPOKE WITH DAUGHTER AT BEDSIDE. PT WAS IN LAST WEEK AND HAS NOT TAKEN MANY OF HER MEDICATIONS SINCE THAT VISIT. HER LASIX, HYDRALAZINE, METOLAZONE, METOPROLOL, AND SPIRONOLACTONE HAVE NOT BEEN GIVEN. DESPITE THE PRESCRIBED DOSE OF HYDRALAZINE, PT WAS ONLY GETTING 25 MG PO AT BEDTIME BUT ACCORDING TO DAUGHTER HYDRALAINE IS OFF HER LIST.
[2021-08-28 16:14] LABS: Glucose, Whole Blood 252 mg/dL (60-115)
[2021-08-28 16:14] LABS: Osmolality, Serum 298 mosm/kg (281-305)
[2021-08-28] MEDS: Insulin Lispro 100 UNIT/ML 3 ML VIAL SUBCUT ×2 (16:25→22:41)
[2021-08-28] MEDS: Rivaroxaban 15 MG TABLET PO (19:35)
[2021-08-28 19:36] VITALS: BP 122/68; PULSE 67; RESP 18; TEMP 36.9; O2SAT 99
[2021-08-28 19:54] LABS: Glucose, Whole Blood 161 mg/dL (60-115)
[2021-08-28 22:39] LABS: Glucose, Whole Blood 311 mg/dL (60-115)
[2021-08-28] MEDS: Acetaminophen 325 MG TABLET 650 MG PO (22:41)
[2021-08-28] MEDS: Atorvastatin Calcium 10 MG TABLET PO (22:41)
[2021-08-28] MEDS: levoFLOXacin 250 MG TABLET PO (22:42)
[2021-08-28] MEDS: 0.9 % Sodium Chloride Flush 3 ML SYRINGE IVFLUSH (22:43)
[2021-08-29] VITALS (8 sets, daily range): BP systolic 100–143; BP diastolic 45–70; PULSE 59–81; RESP 14–18; TEMP 35.7–37.1; O2SAT 97–100
[2021-08-29] MEDS: Levothyroxine Sodium 125 MCG TABLET PO (05:52)
[2021-08-29] MEDS: Omeprazole 20 MG CAPSULE.DR PO (05:52)
[2021-08-29] MEDS: Acetaminophen 325 MG TABLET 650 MG PO (05:56)
[2021-08-29 07:26] LABS: Glucose, Whole Blood 282 mg/dL (60-115)
[2021-08-29 07:35] LABS: Anion Gap 9 (12-20); Blood Urea Nitrogen 40 mg/dL (9-16); Calcium 7.5 mg/dL (8.4-10.2); Carbon Dioxide 26 mmol/L (22-29); Chloride 99 mmol/L (96-108); Creatinine Clr Calc Pharmacy 21.3; Estimated Glomerular Filt Rate 34; Glucose Random 266 mg/dL (60-115); Sodium 129 mmol/L (135-145)
[2021-08-29] MEDS: Amiodarone HCL 200 MG TABLET PO (08:01)
[2021-08-29] MEDS: Furosemide 40 MG TABLET 80 MG PO (08:01)
[2021-08-29] MEDS: Insulin Glargine,Hum.rec.anlog 100 UNIT/ML 10 ML VIAL 10 UNIT SUBCUT (08:02)
[2021-08-29] MEDS: 0.9 % Sodium Chloride Flush 3 ML SYRINGE IVFLUSH (08:02)
[2021-08-29] MEDS: Insulin Lispro 100 UNIT/ML 3 ML VIAL SUBCUT ×3 (08:02→21:13)
[2021-08-29 09:56] LABS: Appearance Urine CLEAR; Color Urine STRAW; Glucose Urine UA 500 MG/DL (NEG); Leukocyte Esterase Urine NEG (NEG); Nitrite Urine NEG (NEG); PH 5.5 (5.0-8.0); Urine Blood NEG (NEG); Urine Ketones NEG (NEG); Urine Protein NEG (NEG-TRACE)
[2021-08-29 10:01] LABS: Sodium Urine Random < 20.0 mmol/L
--- NOTE | 2021-08-29 11:21 | MHC.CM.PN ---
Addendum entered by Marion Slaughter 08/29/21 11:23: CM CALLED PTS DAUGHTER, MEL [phone] WHO REPORTS CONCERN BECAUSE THE LAST TIME THE PT WAS HERE SHE WAS INPATIENT FOR 5 DAYS SHE REPORTS SHE THOUGHT THE PT WOULD JUST COME IN FOR FLUIDS AND THEN GO HOME, BUT SHE DOES NOT FEEL PT IS BEING ASSESSED QUICKLY ENOUGH. SHE INDICATED SHE WOULD LIKE TO SPEAK TO PTS HOSPITALIST REQUEST SENT TO PROVIDER [employer]IA [employer] MEL REPORTS THE PT IS ACTIVE WITH [facility] Original Note: CM MET WITH PT WHO REPORTS SHE LIVES ALONE BUT HAS FAMILY THERE DAILY SHE REPORTS SHE HAS A VNA BUT DOES NOT KNOW THE AGENCY SHE USES ROLLATOR TO AMBULATE PT REPORTS SHE IS COVID-19 VACCINATED WITH [facility] AND HAS RECEIVED [facility] PT REPORTS HER DAUGHTER, MEL, IS HER HCP PCP: TENZIN SYED IMM DELIVERED, COPY SENT TO [facility] CURRENT DC PLAN IS HOME WITH RESUMPTION OF VNA AND FAMILY SUPPORT FAMILY TO TRANSPORT
[2021-08-29 11:26] LABS: Osmolality Urine 450 mosm/kg (373-1093)
--- NOTE | 2021-08-29 11:37 | HO.PM.IMPN ---
Subjective Subjective Date of Service: 08/29/21 Review of Systems Follow up orthostatic hypotension, hyponatremia feeling dizzy when standing denies pain Physical Exam Vital Signs: Vital Signs: Last Vital Signs Temp 97.5 F 08/29/21 07:56 Pulse 81 08/29/21 08:01 Resp 18 08/29/21 07:56 BP 100/45 L 08/29/21 08:01 Pulse Ox 98 08/29/21 07:56 BMI result Body Mass Index 25.0 Appearing in no acute distress lung sounds are clear to auscultation heart regular rate rhythm, clear S1, S2 positive bowel sounds, abdomen is soft, nontender neuro patient is alert x3, no focal deficits Objective Data Active Medications Acetaminophen (Acetaminophen 325 Mg Tablet) 650 mg PO Q6H PRN PRN Reason: Pain, Mild (Pain Scale 1-3) Last Admin: 08/29/21 05:56 Dose: 650 mg Documented by: PATY Amiodarone HCl (Amiodarone Hcl 200 Mg Tablet) 200 mg PO DAILY [facility] Last Admin: 08/29/21 08:01 Dose: 200 mg Documented by: QI Atorvastatin Calcium (Atorvastatin Calcium 10 Mg Tablet) 10 mg PO BEDTIME [facility] Last Admin: 08/28/21 22:41 Dose: 10 mg Documented by: PATY Dextrose (Dextrose 50 % 25 Gm/50 Ml Syringe) 25 gm IVPUSH Q15M PRN; Protocol PRN Reason: per Hypoglycemia Standing Ord. Docusate Sodium (Docusate Sodium 100 Mg Capsule) 100 mg PO DAILY PRN PRN Reason: Constipation Furosemide (Furosemide 40 Mg Tablet) 80 mg PO DAILY [facility]; Protocol Last Admin: 08/29/21 08:01 Dose: 80 mg Documented by: QI Glucose (Glucose Gel 15 Gm Gel..Gram.) 15 gm PO Q15M PRN; Protocol PRN Reason: per Hypoglycemia Standing Ord. Glycerin (Glycerin Adult Supp.Rect) 1 supp [place] DAILY PRN PRN Reason: Constipation Insulin Glargine (Insulin Glargine,Hum.Rec.Anlog 100 Unit/Ml 10 Ml Vial) 10 unit SUBCUT DAILY [facility] Last Admin: 08/29/21 08:02 Dose: 10 unit Documented by: QI Insulin Human Lispro (Insulin Lispro 100 Unit/Ml 3 Ml Vial) 0 unit SUBCUT QIDACHS [facility]; Protocol Last Admin: 08/29/21 08:02 Dose: 6 unit Documented by: QI Lactulose (Lactulose 20 Gm/30 Ml Solution) 20 gm PO DAILY PRN PRN Reason: constipation Latanoprost (Latanoprost 0.005 % Ophth Liseth 2.5 Ml Drops) 1 drop EYE-BOTH BEDTIME [facility] Last Admin: 08/28/21 22:42 Dose: Not Given Documented by: PATY Non-Admin Reason: Med Not Available Levofloxacin (Levofloxacin 250 Mg Tablet) 250 mg PO Q24H [facility] Last Admin: 08/28/21 22:42 Dose: 250 mg Documented by: PATY Levothyroxine Sodium (Levothyroxine Sodium 125 Mcg Tablet) 125 mcg PO DAILY@0600 [facility] Last Admin: 08/29/21 05:52 Dose: 125 mcg Documented by: PATY Omeprazole (Omeprazole 20 Mg Capsule.) 20 mg PO DAILY@0630 [facility] Last Admin: 08/29/21 05:52 Dose: 20 mg Documented by: PATY Pharmacy Consult (Consult Rx Perform Med Rec) 1 each MISCELLANE ONCE PRN PRN Reason: Consult order Rivaroxaban (Rivaroxaban 15 Mg Tablet) 15 mg PO DAILY@1700 [facility] Last Admin: 08/28/21 19:35 Dose: 15 mg Documented by: SAN[place]ORD Sodium Chloride (0.9 % Sodium Chloride Flush 3 Ml Syringe) 3 ml IVFLUSH QSHIFT [facility] Last Admin: 08/29/21 08:02 Dose: 3 ml Documented by: QI Labs CBC & Chem 7: 08/28/21 13:18 08/29/21 06:50 Labs: Laboratory Results - last 24 hr 08/28/21 08/28/21 08/28/21 13:18 13:18 13:18 MCV 84.3 MCH 28.0 MCHC 33.2 RDW 17.4 H Plt Count 358 MPV 10.7 Immature Gran % (Auto) 4.0 H Neut % (Auto) 76.2 H Lymph % (Auto) 9.6 L Todd % (Auto) 8.9 Eos % (Auto) 1.1 Baso % (Auto) 0.2 Lymph # (Auto) 1.3 Todd # (Auto) 1.2 Eos # (Auto) 0.2 Baso # (Auto) 0.0 Abs Immat Gran (auto) 0.55 H Absolute Neuts (auto) 10.5 H Absolute Nucleated RBC 0.000 Nucleated RBC % (auto) 0.0 PT 14.7 H INR 1.3 H Anion Gap 10 L Estim Creat Clear Calc 18.8 Estimated GFR 29 POC Glucose Random Glucose 273 H Osmolality Calcium 8.1 L D Magnesium 3.0 H Total Bilirubin 0.5 Direct Bilirubin 0.2 AST 21 D ALT 26 Alkaline Phosphatase 82 Troponin I High Sens B-Natriuretic Peptide Total Protein 5.8 L Albumin 3.3 L Urine Color Urine Appearance Urine pH Ur Specific [place] Urine Protein Urine Glucose (UA) Urine Ketones Urine Blood Urine Nitrite Ur Leukocyte Esterase Urine Osmolality Ur Random Sodium COVID-19 (LING) COVID-[employer]mtrics 08/28/21 08/28/21 08/28/21 13:18 13:18 14:45 MCV MCH MCHC RDW Plt Count MPV Immature Gran % (Auto) Neut % (Auto) Lymph % (Auto) Todd % (Auto) Eos % (Auto) Baso % (Auto) Lymph # (Auto) Todd # (Auto) Eos # (Auto) Baso # (Auto) Abs Immat Gran (auto) Absolute Neuts (auto) Absolute Nucleated RBC Nucleated RBC % (auto) PT INR Anion Gap Estim Creat Clear Calc Estimated GFR POC Glucose Random Glucose Osmolality 298 Calcium Magnesium Total Bilirubin Direct Bilirubin AST ALT Alkaline Phosphatase Troponin I High Sens 24.4 H D B-Natriuretic Peptide 146 H Total Protein Albumin Urine Color Urine Appearance Urine pH Ur Specific [place] Urine Protein Urine Glucose (UA) Urine Ketones Urine Blood Urine Nitrite Ur Leukocyte Esterase Urine Osmolality Ur Random Sodium COVID-19 (LING) Positive A COVID-19 [employer] See Note 08/28/21 08/28/21 08/28/21 16:10 19:38 22:34 MCV MCH MCHC RDW Plt Count MPV Immature Gran % (Auto) Neut % (Auto) Lymph % (Auto) Todd % (Auto) Eos % (Auto) Baso % (Auto) Lymph # (Auto) Todd # (Auto) Eos # (Auto) Baso # (Auto) Abs Immat Gran (auto) Absolute Neuts (auto) Absolute Nucleated RBC Nucleated RBC % (auto) PT INR Anion Gap Estim Creat Clear Calc Estimated GFR POC Glucose 252 H 161 H 311 H Random Glucose Osmolality Calcium Magnesium Total Bilirubin Direct Bilirubin AST ALT Alkaline Phosphatase Troponin I High Sens B-Natriuretic Peptide Total Protein Albumin Urine Color Urine Appearance Urine pH Ur Specific [place] Urine Protein Urine Glucose (UA) Urine Ketones Urine Blood Urine Nitrite Ur Leukocyte Esterase Urine Osmolality Ur Random Sodium COVID-19 (LING) COVID-19 Clin Com 08/29/21 08/29/21 08/29/21 06:50 07:19 09:29 MCV MCH MCHC RDW Plt Count MPV Immature Gran % (Auto) Neut % (Auto) Lymph % (Auto) Todd % (Auto) Eos % (Auto) Baso % (Auto) Lymph # (Auto) Todd # (Auto) Eos # (Auto) Baso # (Auto) Abs Immat Gran (auto) Absolute Neuts (auto) Absolute Nucleated RBC Nucleated RBC % (auto) PT INR Anion Gap 9 L Estim Creat Clear Calc 21.3 Estimated GFR 34 POC Glucose 282 H Random Glucose 266 H Osmolality Calcium 7.5 L D Magnesium Total Bilirubin Direct Bilirubin AST ALT Alkaline Phosphatase Troponin I High Sens B-Natriuretic Peptide Total Protein Albumin Urine Color STRAW Urine Appearance CLEAR Urine pH 5.5 Ur Specific [place] 1.010 Urine Protein NEG Urine Glucose (UA) 500 H Urine Ketones NEG Urine Blood NEG Urine Nitrite NEG Ur Leukocyte Esterase NEG Urine Osmolality Ur Random Sodium COVID-19 (LING) COVID-19 Ring Com 08/29/21 08/29/21 09:29 09:29 MCV MCH MCHC RDW Plt Count MPV Immature Gran % (Auto) Neut % (Auto) Lymph % (Auto) [place] % (Auto) Eos % (Auto) Baso % (Auto) Lymph # (Auto) Todd # (Auto) Eos # (Auto) Baso # (Auto) Abs Immat Gran (auto) Absolute Neuts (auto) Absolute Nucleated RBC Nucleated RBC % (auto) PT INR Anion Gap Estim Creat Clear Calc Estimated GFR POC Glucose Random Glucose Osmolality Calcium Magnesium Total Bilirubin Direct Bilirubin AST ALT Alkaline Phosphatase Troponin I High Sens B-Natriuretic Peptide Total Protein Albumin Urine Color Urine Appearance Urine pH Ur Specific [place] Urine Protein Urine Glucose (UA) Urine Ketones Urine Blood Urine Nitrite Ur Leukocyte Esterase Urine Osmolality 450 Ur Random Sodium < 20.0 COVID-19 (LING) COVID-19 Clin Com Assessment and Plan (1) Orthostatic hypotension: Status: Acute Plan This is an 86 year old female with history of PAF on xrealto, HFpEF, hypothyroidism, DM, HTN, and recent admission for COVID-19 and CHF exacerbation brought to the emergency department by her daughter due to dizziness and low blood pressure since Sunday. Hyponatremia appears mildly dry likely r/t diuretics TSH from 08/26 0.32, wnl hold diuretics NS@75 nephro consult Orthostatic hypotension still dizzy when she gets up hold diuretics NS @75 Follow BP closely UTI diagnosed as outpatient Urine cx pending on levaquin Hyperkalemia, resolved hold aldactone follow BMP COVID 19 recent admission for covid 19 tested positive again but no active infection. has completed course of decadron. asymptomatic. HTN hold all BP meds and monitor BP closely HFpEF appears euvolemic. 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 Latif Continued hospitalization for treatment of hyponatremia, orthostatic hypotension and titration of blood pressure medication Quality Stroke Does the patient have a stroke diagnosis?: No VTE Prior VTE?: No VTE Risk Level:: Medical - moderate - high VTE Device Contraindication: N/A - Device Ordered VTE Drug Contraindication: N/A - Med Ordered
[2021-08-29 13:46] LABS: Glucose, Whole Blood 284 mg/dL (60-115)
[2021-08-29 13:58] LABS: Sodium 128 mmol/L (135-145)
[2021-08-29] MEDS: 0.9 % Sodium Chloride 1,000 ML 75 ML IVCONT (14:06)
[2021-08-29] MEDS: Rivaroxaban 15 MG TABLET PO (17:35)
[2021-08-29 18:15] LABS: Glucose, Whole Blood 207 mg/dL (60-115)
[2021-08-29 20:54] LABS: Glucose, Whole Blood 222 mg/dL (60-115)
[2021-08-29] MEDS: Atorvastatin Calcium 10 MG TABLET PO (21:14)
[2021-08-29] MEDS: levoFLOXacin 250 MG TABLET PO (23:44)
[2021-08-30] VITALS (11 sets, daily range): BP systolic 93–196; BP diastolic 44–87; PULSE 58–85; RESP 17–20; TEMP 36.2–37; O2SAT 98–100
--- NOTE | 2021-08-30 00:03 | PC.NURSE ---
Patient was given cefuroxime 500 mg tablet at 2330 pm instead of Levaquin 250 mg. Both medications were right next to eachother in Pyxis and grabbed wrong abx in error. Dr Gould and [employer] notified. Patient denies allergy to penicillins, cephalosporin, or cefuroxime abx. Dr Gould wanted Levaquin given as ordered.
[2021-08-30] MEDS: 0.9 % Sodium Chloride 1,000 ML 75 ML IVCONT ×2 (02:54→16:16)
[2021-08-30] MEDS: Omeprazole 20 MG CAPSULE.DR PO (06:21)
[2021-08-30] MEDS: Levothyroxine Sodium 125 MCG TABLET PO (06:21)
[2021-08-30 07:42] LABS: Glucose, Whole Blood 211 mg/dL (60-115)
[2021-08-30 07:51] LABS: Anion Gap 9 (12-20); Blood Urea Nitrogen 32 mg/dL (9-16); Calcium 7.8 mg/dL (8.4-10.2); Carbon Dioxide 26 mmol/L (22-29); Chloride 104 mmol/L (96-108); Creatinine Clr Calc Pharmacy 25.9; Estimated Glomerular Filt Rate 42; Glucose Random 212 mg/dL (60-115); Potassium 4.6 mmol/L (3.3-5.1); Sodium 134 mmol/L (135-145)
[2021-08-30] MEDS: hydrALAZINE HCl 25 MG TABLET PO (08:03)
[2021-08-30] MEDS: Furosemide 40 MG TABLET 80 MG PO (08:03)
[2021-08-30] MEDS: Metoprolol Succinate ER 100 MG TAB.ER.24H PO (08:03)
[2021-08-30] MEDS: Amiodarone HCL 200 MG TABLET PO (08:03)
[2021-08-30] MEDS: Insulin Glargine,Hum.rec.anlog 100 UNIT/ML 10 ML VIAL 10 UNIT SUBCUT (08:04)
[2021-08-30] MEDS: Insulin Lispro 100 UNIT/ML 3 ML VIAL SUBCUT ×3 (08:04→21:31)
[2021-08-30] MEDS: 0.9 % Sodium Chloride Flush 3 ML SYRINGE IVFLUSH ×2 (08:05→21:33)
--- NOTE | 2021-08-30 09:02 | P.CDIC_ITS ---
CDI Concurrent Query Documentation Clarification: PHYSICIAN'S DOCUMENTATION REQUEST Date of Query: 08/30/21 0903 Patient Name: Gerri Sanchez Admit Date: 08/28/21 Dear Doctor, A review of the medical record indicates additional documentation may be needed. Please review below and update the documentation accordingly. Clinical Indicators: Risk Factors/Clinical Indicators/Treatments POC glucose 252 H 311 H Insulin weakness, loss of appetite PMH: Diabetes mellitus Type 2 with hyperglycemia Convert Toujeo to Lantus, SSI, POCs Please clarify the following regarding Diabetes Mellitus (DM): Type/Etiology: * DM due to underlying condition (please specify) * Drug or chemical induced DM (please specify drug) * Type I DM * Type II DM * Other type of DM (please specify) * Unable to determine Complications of DM: Uncontrolled, poorly controlled * Hypoglycemia * Hyperglycemia * No complications of DM * Other complication ? please specify * Unable to determine Use of terms such as suspected, likely, concern for, or probable (associated with a specific diagnosis that is being evaluated, monitored, or treated as if it exists) are acceptable and can be coded in the inpatient setting, when documented at the time of discharge. Thank you, Tamie Juarez [facility], CDIS Extension: [phone] Please use your independent medical judgment in providing your response. THIS QUERY IS PART OF THE PERMANENT MEDICAL RECORD Other Diagnosis: DM II
--- NOTE | 2021-08-30 09:02 | MHC.CDI.CONC ---
CDI Concurrent Query Documentation Clarification: PHYSICIAN'S DOCUMENTATION REQUEST Date of Query: 08/30/21 0903 Patient Name: Gerri Sanchez Admit Date: 08/28/21 Dear Doctor, A review of the medical record indicates additional documentation may be needed. Please review below and update the documentation accordingly. Clinical Indicators: Risk Factors/Clinical Indicators/Treatments POC glucose 252 H 311 H Insulin weakness, loss of appetite PMH: Diabetes mellitus Type 2 with hyperglycemia Convert Toujeo to Lantus, SSI, POCs Please clarify the following regarding Diabetes Mellitus (DM): Type/Etiology: DM due to underlying condition (please specify) Drug or chemical induced DM (please specify drug) Type I DM Type II DM Other type of DM (please specify) Unable to determine Complications of DM: Uncontrolled, poorly controlled Hypoglycemia Hyperglycemia No complications of DM Other complication ? please specify Unable to determine Use of terms such as suspected, likely, concern for, or probable (associated with a specific diagnosis that is being evaluated, monitored, or treated as if it exists) are acceptable and can be coded in the inpatient setting, when documented at the time of discharge. Thank you, Tamie Juarez [facility], CDIS Extension: [phone] Please use your independent medical judgment in providing your response. THIS QUERY IS PART OF THE PERMANENT MEDICAL RECORD Other Diagnosis: DM II
--- NOTE | 2021-08-30 09:13 | P.PNIM_ITS ---
Subjective Subjective Date of Service: 08/30/21 Review of Systems Follow up orthostatic hypotension, hyponatremia No dizziness while standing c/o abdominal cramping Physical Exam Vital Signs: Vital Signs: Last Vital Signs Temp 98.0 F 08/30/21 07:10 Pulse 85 08/30/21 08:41 Resp 20 08/30/21 07:10 BP 93/44 L 08/30/21 08:41 Pulse Ox 98 08/30/21 07:10 BMI result Body Mass Index 25.0 Appearing in no acute distress lung sounds are clear to auscultation heart regular rate rhythm, clear S1, S2 positive bowel sounds, abdomen is soft, nontender neuro patient is alert x3, no focal deficits Objective Data Active Medications Acetaminophen (Acetaminophen 325 Mg Tablet) 650 mg PO Q6H PRN PRN Reason: Pain, Mild (Pain Scale 1-3) Last Admin: 08/29/21 05:56 Dose: 650 mg Documented by: PATY Amiodarone HCl (Amiodarone Hcl 200 Mg Tablet) 200 mg PO DAILY [facility] Last Admin: 08/30/21 08:03 Dose: 200 mg Documented by: ÁNGEL Atorvastatin Calcium (Atorvastatin Calcium 10 Mg Tablet) 10 mg PO BEDTIME [facility] Last Admin: 08/29/21 21:14 Dose: 10 mg Documented by: COLROBEL Dextrose (Dextrose 50 % 25 Gm/50 Ml Syringe) 25 gm IVPUSH Q15M PRN; Protocol PRN Reason: per Hypoglycemia Standing Ord. Docusate Sodium (Docusate Sodium 100 Mg Capsule) 100 mg PO DAILY PRN PRN Reason: Constipation Furosemide (Furosemide 40 Mg Tablet) 80 mg PO DAILY [facility]; Protocol Last Admin: 08/30/21 08:03 Dose: 80 mg Documented by: ÁNGEL Glucose (Glucose Gel 15 Gm Gel..Gram.) 15 gm PO Q15M PRN; Protocol PRN Reason: per Hypoglycemia Standing Ord. Glycerin (Glycerin Adult Supp.Rect) 1 supp [place] DAILY PRN PRN Reason: Constipation Hydralazine HCl (Hydralazine Hcl 25 Mg Tablet) 25 mg PO TID [facility]; Protocol Last Admin: 08/30/21 08:03 Dose: 25 mg Documented by: ÁNGEL Sodium Chloride (Ns) 1,000 mls @ 75 mls/hr IVCONT .[id number] [facility] Last Admin: 08/30/21 02:54 Dose: 75 mls/hr Documented by: CELI Insulin Glargine (Insulin Glargine,Hum.Rec.Anlog 100 Unit/Ml 10 Ml Vial) 10 unit SUBCUT DAILY [facility] Last Admin: 08/30/21 08:04 Dose: 10 unit Documented by: ÁNGEL Insulin Human Lispro (Insulin Lispro 100 Unit/Ml 3 Ml Vial) 0 unit SUBCUT QIDACHS [facility]; Protocol Last Admin: 08/30/21 08:04 Dose: 4 unit Documented by: ÁNGEL Lactulose (Lactulose 20 Gm/30 Ml Solution) 20 gm PO DAILY PRN PRN Reason: constipation Latanoprost (Latanoprost 0.005 % Ophth Liseth 2.5 Ml Drops) 1 drop EYE-BOTH BEDTIME [facility] Last Admin: 08/29/21 23:45 Dose: Not Given Documented by: CAROLINA Non-Admin Reason: Med Not Available Levofloxacin (Levofloxacin 250 Mg Tablet) 250 mg PO Q24H [facility] Last Admin: 08/29/21 23:44 Dose: 250 mg Documented by: CAROLINA Levothyroxine Sodium (Levothyroxine Sodium 125 Mcg Tablet) 125 mcg PO DAILY@0600 [facility] Last Admin: 08/30/21 06:21 Dose: 125 mcg Documented by: CELI Metoprolol Succinate (Metoprolol Succinate Er 100 Mg Tab.Er.24h) 100 mg PO DAILY [facility]; Protocol Last Admin: 08/30/21 08:03 Dose: 100 mg Documented by: ÁNGEL Omeprazole (Omeprazole 20 Mg Capsule.) 20 mg PO DAILY@0630 [facility] Last Admin: 08/30/21 06:21 Dose: 20 mg Documented by: CELI Pharmacy Consult (Consult Rx Perform Med Rec) 1 each MISCELLANE ONCE PRN PRN Reason: Consult order Rivaroxaban (Rivaroxaban 15 Mg Tablet) 15 mg PO DAILY@1700 [facility] Last Admin: 08/29/21 17:35 Dose: 15 mg Documented by: TIESHA Sodium Chloride (0.9 % Sodium Chloride Flush 3 Ml Syringe) 3 ml IVFLUSH QSHIFT [facility] Last Admin: 08/30/21 08:05 Dose: 3 ml Documented by: ÁNGEL Labs CBC & Chem 7: 08/28/21 13:18 08/30/21 07:09 Labs: Laboratory Results - last 24 hr 08/29/21 08/29/21 08/29/21 09:29 09:29 09:29 Anion Gap Estim Creat Clear Calc Estimated GFR POC Glucose Random Glucose Calcium Urine Color STRAW Urine Appearance CLEAR Urine pH 5.5 Ur Specific [place] 1.010 Urine Protein NEG Urine Glucose (UA) 500 H Urine Ketones NEG Urine Blood NEG Urine Nitrite NEG Ur Leukocyte Esterase NEG Urine Osmolality 450 Ur Random Sodium < 20.0 08/29/21 08/29/21 08/29/21 13:40 18:10 20:43 Anion Gap Estim Creat Clear Calc Estimated GFR POC Glucose 284 H 207 H 222 H Random Glucose Calcium Urine Color Urine Appearance Urine pH Ur Specific [place] Urine Protein Urine Glucose (UA) Urine Ketones Urine Blood Urine Nitrite Ur Leukocyte Esterase Urine Osmolality Ur Random Sodium 08/30/21 08/30/21 07:09 07:13 Anion Gap 9 L Estim Creat Clear Calc 25.9 Estimated GFR 42 POC Glucose 211 H Random Glucose 212 H Calcium 7.8 L Urine Color Urine Appearance Urine pH Ur Specific [place] Urine Protein Urine Glucose (UA) Urine Ketones Urine Blood Urine Nitrite Ur Leukocyte Esterase Urine Osmolality Ur Random Sodium Assessment and Plan (1) Orthostatic hypotension: Status: Acute Plan This is an 86 year old female with history of PAF on xrealto, HFpEF, hypothy roidism, DM, HTN, and recent admission for COVID-19 and CHF exacerbation brought to the emergency department by her daughter due to dizziness and low blood pressure since Sunday. Hyponatremia, improving appears mildly dry likely r/t diuretics, hold diuretics NS@75 nephro consult Orthostatic hypotension still orthostatic today hold diuretics NS @75 Follow BP closely UTI diagnosed as outpatient Urine cx pending on levaquin Hyperkalemia, resolved hold aldactone follow BMP COVID 19 recent admission for covid 19 tested positive again but no active infection. has completed course of decadron. asymptomatic. HTN hold all BP meds and monitor BP closely HFpEF appears euvolemic. 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 Latif Continued hospitalization for treatment of hyponatremia, orthostatic hypotension and titration of blood pressure medication Quality Stroke Does the patient have a stroke diagnosis?: No VTE Prior VTE?: No VTE Risk Level:: Medical - moderate - high VTE Device Contraindication: N/A - Device Ordered VTE Drug Contraindication: N/A - Med Ordered
[2021-08-30 11:25] LABS: Glucose, Whole Blood 334 mg/dL (60-115)
[2021-08-30 16:45] LABS: Glucose, Whole Blood 113 mg/dL (60-115)
--- NOTE | 2021-08-30 17:10 | PM.CNNEP ---
History of Present Illness Reason for Consult Consult date: 08/30/21 Reason for consult: Hyponatremia Chief Complaint Chief complaint: Hyponatremia, Orthostatic hypotension History of Present Illness Narrative: 86 year old female with past medical history of CKD 3, PAF on xrealto, HFpEF, hypothyroidism, DM, HTN, recent covid infection requiring hospitalization at [facility] from 08/17 to 08/21, who presents weakness, dizziness, and headaches with about ~ 10 lb weight loss. She has taken 3 doses of ciprofloxacin for uti. Patient?s daughter has noted BP has been on lower side at home. In the emergency department her blood pressure was 146/50 but dropped to 95/40 upon standing. Her sodium levels were also low. She received 500cc of NS. She admits to poor appetite, nausea, and weight loss. ROS otherwise negative. 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 Chronic heart failure with preserved ejection fraction (HFpEF) Degenerative disc disease, lumbar Disc degeneration, lumbar Essential hypertension Hyperkalemia Hypothyroid Iliotibial band syndrome of right side Osteopenia Spinal stenosis of lumbar region Type 2 diabetes mellitus with hyperglycemia Family History Family History Father CVD (cardiovascular disease) Mother CVD (cardiovascular disease) Stroke Surgical History Surgical History History of appendectomy History of cataract surgery History of section History of cholecystectomy History of eye surgery History of hip replacement History of knee replacement History of removal of cyst Social History Social History Household Members: None Household Members Other:: son comes 3 days a week, daughter lives 5 minutes away visits frequently Housing: House Do you presently have visiting nurse or other home services: Yes Alcohol intake: never Patient Tobacco Use Status: Former Tobacco user Tobacco use type: Cigarette Years Smoked: <1 Smoked in Last 30 Days: No e-Cigarette/Vaping Use: Former Use Patient Interested in Nicotine Replacement: No Second Hand Smoke Exposure: No Currently Displaying Signs/Symptoms of Drug Intoxication Withdrawal: No Any prior treatment program specific to substance use: No Have you been hit, kicked, punched, or otherwise hurt by someone within the past year? If so, by whom?: No Do you feel safe in your current relationship?: No Current Relationship Is there a partner from a previous relationship who is making you feel unsafe now?: No Are you made to feel afraid or neglected: No Spiritual Healthcare Practices: [employer] Advance Directives: Yes Advance Directives on File: Yes Advance Directives Date on File: 08/29/21 Do you have thoughts of harming others: None Do you have a plan to hurt others: No Plan Recently lost weight without trying: Yes How much weight loss: 14-23 pounds Eating poorly because of decreased appetite: No Nutrition screen score: 4 Nutrition Risks: No Nutritional Risk Patient : No : No Poor oral hygiene: No service: No Current occupational status: [employer] Allergies Allergy/AdvReac Type Severity Reaction Status Date / Time codeine Allergy Intermediate TACHYCARDIA Verified 08/28/21 12:37 nitrofurantoin [Macrobid] Allergy Unknown confusion Verified 08/28/21 12:37 pravastatin Allergy Unknown Unknown Verified 08/28/21 12:37 rosuvastatin [Crestor] Allergy Unknown Unknown Verified 08/28/21 12:37 Sulfa (Sulfonamide Allergy Unknown unknown Verified 08/28/21 12:37 Antibiotics) sulfamethoxazole Allergy Unknown Unknown Verified 08/28/21 12:37 [From Bactrim] trimethoprim [From Bactrim] Allergy Unknown Unknown Verified 08/28/21 12:37 amlodipine AdvReac Intermediate leg Verified 08/28/21 12:37 swelling Active Medications: Current Medications Acetaminophen (Acetaminophen 325 Mg Tablet) 650 mg PO Q6H PRN PRN Reason: Pain, Mild (Pain Scale 1-3) Last Admin: 08/29/21 05:56 Dose: 650 mg Documented by: Amiodarone HCl (Amiodarone Hcl 200 Mg Tablet) 200 mg PO DAILY ENA Last Admin: 08/30/21 08:03 Dose: 200 mg Documented by: Atorvastatin Calcium (Atorvastatin Calcium 10 Mg Tablet) 10 mg PO BEDTIME ENA Last Admin: 08/29/21 21:14 Dose: 10 mg Documented by: Dextrose (Dextrose 50 % 25 Gm/50 Ml Syringe) 25 gm IVPUSH Q15M PRN; Protocol PRN Reason: per Hypoglycemia Standing Ord. Docusate Sodium (Docusate Sodium 100 Mg Capsule) 100 mg PO DAILY PRN PRN Reason: Constipation Furosemide (Furosemide 40 Mg Tablet) 80 mg PO DAILY [facility]; Protocol Last Admin: 08/30/21 08:03 Dose: 80 mg Documented by: Glucose (Glucose Gel 15 Gm Gel..Gram.) 15 gm PO Q15M PRN; Protocol PRN Reason: per Hypoglycemia Standing Ord. Glycerin (Glycerin Adult Supp.Rect) 1 supp CA DAILY PRN PRN Reason: Constipation Hydralazine HCl (Hydralazine Hcl 25 Mg Tablet) 25 mg PO TID [facility]; Protocol Last Admin: 08/30/21 08:03 Dose: 25 mg Documented by: Sodium Chloride (Ns) 1,000 mls @ 75 mls/hr IVCONT .[id number] [facility] Last Admin: 08/30/21 16:16 Dose: 75 mls/hr Documented by: Insulin Glargine (Insulin Glargine,Hum.Rec.Anlog 100 Unit/Ml 10 Ml Vial) 10 unit SUBCUT DAILY [facility] Last Admin: 08/30/21 08:04 Dose: 10 unit Documented by: Insulin Human Lispro (Insulin Lispro 100 Unit/Ml 3 Ml Vial) 0 unit SUBCUT QIDACHS [facility]; Protocol Last Admin: 08/30/21 12:23 Dose: 8 unit Documented by: Lactulose (Lactulose 20 Gm/30 Ml Solution) 20 gm PO DAILY PRN PRN Reason: constipation Latanoprost (Latanoprost 0.005 % Ophth Liseth 2.5 Ml Drops) 1 drop EYE-BOTH BEDTIME [facility] Last Admin: 08/29/21 23:45 Dose: Not Given Documented by: Levofloxacin (Levofloxacin 250 Mg Tablet) 250 mg PO Q24H [facility] Last Admin: 08/29/21 23:44 Dose: 250 mg Documented by: Levothyroxine Sodium (Levothyroxine Sodium 125 Mcg Tablet) 125 mcg PO DAILY@0600 [facility] Last Admin: 08/30/21 06:21 Dose: 125 mcg Documented by: Metoprolol Succinate (Metoprolol Succinate Er 100 Mg Tab.Er.24h) 100 mg PO DAILY [facility]; Protocol Last Admin: 08/30/21 08:03 Dose: 100 mg Documented by: Omeprazole (Omeprazole 20 Mg Capsule.Dr) 20 mg PO DAILY@0630 [facility] Last Admin: 08/30/21 06:21 Dose: 20 mg Documented by: Pharmacy Consult (Consult Rx Perform Med Rec) 1 each MISCELLANE ONCE PRN PRN Reason: Consult order Rivaroxaban (Rivaroxaban 15 Mg Tablet) 15 mg PO DAILY@1700 [facility] Last Admin: 08/29/21 17:35 Dose: 15 mg Documented by: Sodium Chloride (0.9 % Sodium Chloride Flush 3 Ml Syringe) 3 ml IVFLUSH QSHIFT [facility] Last Admin: 08/30/21 16:17 Dose: Not Given Documented by: Home Medications Medication Instructions Recorded Confirmed Last Taken Type travoprost 0.004 % eye drops 1 drp OPHTHALMIC (EYE) BEDTIME 06/01/20 08/28/21 08/16/21 History metolazone 2.5 mg tablet 1.25 mg PO DAILY PRN tab 03/01/21 08/28/21 Unknown History omeprazole 20 mg capsule,delayed 20 mg PO DAILY@0630 cap 03/01/21 08/28/21 08/28/21 History release furosemide 80 mg tablet 80 mg PO DAILY 08/08/21 08/28/21 08/16/21 History acetaminophen 500 mg tablet 1,000 mg PO TID 08/17/21 08/28/21 08/16/21 History furosemide 80 mg tablet 40 mg PO BEDTIME 08/17/21 08/28/21 08/16/21 History glycerin (adult) 1 supp CA DAILY PRN 08/17/21 08/28/21 Unknown History hydralazine 25 mg tablet 25 mg PO TID 08/17/21 08/28/21 Unknown History insulin lispro 100 unit/mL See Protocol SUBCUT TIDAC 08/17/21 08/28/21 08/16/21 History subcutaneous pen (Humalog KwikPen (U-100) Insulin) lactulose 10 gram/15 mL oral 30 ml PO DAILY PRN 08/17/21 08/28/21 08/16/21 History solution hydralazine 10 mg tablet 1 tab PO ONCE PRN 08/28/21 08/28/21 Unknown History rivaroxaban 15 mg tablet (Xarelto) 15 mg PO DAILY@1700 08/28/21 08/28/21 Unknown History Physical Exam Vital Signs: Last Vital Signs Temp 97.7 F 08/30/21 15:03 Pulse 62 08/30/21 15:03 Resp 18 08/30/21 15:03 BP 112/51 L 08/30/21 15:03 Pulse Ox 100 08/30/21 15:03 BMI result Body Mass Index 25.0 Const General: cooperative, comfortable and no acute distress Orientation/consciousness: patient oriented x3 HEENT Head: Yes normal to inspection, Yes normocephalic and Yes atraumatic Neck Neck: Yes no JVD Resp Auscultation: clear to auscultation bilaterally Cardio Jugular venous distension: no JVD Rate: regular rate Rhythm: regular rhythm Heart sounds: S1 normal heart sound present and S2 normal heart sound present GI Auscultation: normal bowel sounds Neuro General: patient oriented x3 Extrem General: Yes no clubbing, cyanosis or edema Results Lab Results Result Diagrams: 08/28/21 13:18 08/30/21 07:09 Lab results: Chemistry 08/28/21 08/29/21 08/29/21 13:18 06:50 13:43 Sodium 125 L 129 L 128 L Potassium 5.2 H 5.0 Carbon Dioxide 27 26 BUN 49 H 40 H Creatinine 1.67 H 1.47 H Calcium 8.1 L D 7.5 L D 08/30/21 07:09 Sodium 134 L Potassium 4.6 Carbon Dioxide 26 BUN 32 H Creatinine 1.21 Calcium 7.8 L Hematology 08/28/21 13:18 WBC 13.8 H Hgb 11.1 L Plt Count 358 Urinalysis 08/29/21 09:29 Urine Color STRAW Urine Appearance CLEAR Urine pH 5.5 Ur Specific [place] 1.010 Urine Protein NEG Urine Glucose (UA) 500 H Urine Ketones NEG Urine Blood NEG Urine Nitrite NEG Ur Leukocyte Esterase NEG Urine Studies 08/29/21 09:29 Urine Osmolality 450 Assessment and Plan (1) Acute hyponatremia: Status: Acute Plan 86 year old female with past medical history of CKD 3, PAF on xrealto, HFpEF, hypothyroidism, DM, HTN, recent covid infection requiring hospitalization at [facility] from 08/17 to 08/21, who presents weakness, dizziness, and headaches with about ~ 10 lb weight loss. She has taken 3 doses of ciprofloxacin for uti. Patient?s daughter has noted BP has been on lower side at home. In the emergency department her blood pressure was 146/50 but dropped to 95/40 upon standing. Her sodium levels were also low. She received 500cc of NS. She admits to poor appetite, nausea, and weight loss. Problem List: Hyponatremia JAZ Glucosuria CKD (BL ~ 1.3-1.6 mg/dL) #) Hyponatremia: Given the patient?s presentation, I suspect she has acute hyponatremia secondary to both pseudohyponatremia given hyperglycemia as well as poor po intake and nutrition. With treatment of hyperglycemia and providing gentle IVF?s with NS, we are already seeing improvement in her S-Na. I would continue to hold Lasix and spironolactone for now. #) JAZ, non-oliguric BL CKD with multiple JAZ?s in the past. She is close to her prior BL. Given diuresis and glucosuria, which induced osmotic diuresis, she is IV volume deplete. Renal function is responding to gentle ivf?s. Restart diuretics at discretion of primary team. I recommend controlling the blood sugar and trying to keep it around 150 to prevent osmotic diuresis and low sodium. Renal panel in am. #CKD-Anemia, CKD-MBD: will add on iron panel, pth, phos Procedures Date of Service Date of Service: 08/30/21
[2021-08-30] MEDS: Rivaroxaban 15 MG TABLET PO (18:43)
[2021-08-30 20:31] LABS: Glucose, Whole Blood 247 mg/dL (60-115)
[2021-08-30] MEDS: Atorvastatin Calcium 10 MG TABLET PO (21:30)
[2021-08-30] MEDS: levoFLOXacin 250 MG TABLET PO (21:30)
[2021-08-30] MEDS: Latanoprost 0.005 % Ophth Sol 2.5 ML DROPS 1 DROP EYE-BOTH (21:33)
[2021-08-30] MEDS: Acetaminophen 325 MG TABLET 650 MG PO (23:52)
[2021-08-31 03:05] VITALS: BP 156/70; PULSE 56; RESP 18; TEMP 36.5; O2SAT 99
[2021-08-31] MEDS: Omeprazole 20 MG CAPSULE.DR PO (05:48)
[2021-08-31] MEDS: Levothyroxine Sodium 125 MCG TABLET PO (05:48)
[2021-08-31 07:17] LABS: Iron 54 mcg/dL (30-160); Percent Iron Saturation 26 % (15-50); Total Iron Binding Capacity 209 mcg/dL (228-428); Unsaturated Iron Binding 155 ug/dL
[2021-08-31 07:31] LABS: Glucose, Whole Blood 102 mg/dL (60-115)
[2021-08-31 07:39] LABS: Vitamin D 25-OH Total 19.1 ng/mL (>30)
[2021-08-31 07:55] VITALS: BP 130/64; PULSE 58; RESP 20; TEMP 36.6; O2SAT 100
--- NOTE | 2021-08-31 08:24 | MHC.CDI.CONC ---
CDI Concurrent Query Documentation Clarification: PHYSICIAN'S DOCUMENTATION REQUEST Date of Query: 08/31/21 0825 Patient Name: Gerri Sanchez Admit Date: 08/28/21 Dear Doctor, A review of the medical record indicates additional documentation may be needed. Please review below and update the documentation accordingly. Clinical Indicators: Risk Factors/Clinical Indicators/Treatments Nephrology note 08/30 - CKD 3 PN: 08/30 - CKD 3/4 Bun 49 Cr. 1.67 Gfr 29 Based on the above, could you clarify in the Progress Notes the appropriate diagnosis, if significant, that supports the above abnormalities and additional evaluation, monitoring, and/or treatment rendered: Specifics to documentation: Chronic kidney disease Stage 3 Chronic kidney disease Stage 4 Other (please specify) Unable to determine Use of terms such as suspected, likely, concern for, or probable (associated with a specific diagnosis that is being evaluated, monitored, or treated as if it exists) are acceptable and can be coded in the inpatient setting, when documented at the time of discharge. Thank you, Tamie Juarez [facility], CDIS Extension: [phone] Please use your independent medical judgment in providing your response. THIS QUERY IS PART OF THE PERMANENT MEDICAL RECORD Provider Response: CKD Stage 3
[2021-08-31] MEDS: Amiodarone HCL 200 MG TABLET PO (10:18)
[2021-08-31] MEDS: Metoprolol Succinate ER 100 MG TAB.ER.24H PO (10:18)
[2021-08-31] MEDS: Insulin Glargine,Hum.rec.anlog 100 UNIT/ML 10 ML VIAL 10 UNIT SUBCUT (10:19)
[2021-08-31] MEDS: Furosemide 40 MG TABLET 80 MG PO (10:19)
[2021-08-31] MEDS: 0.9 % Sodium Chloride Flush 3 ML SYRINGE IVFLUSH (10:19)
--- NOTE | 2021-08-31 11:13 | MHC.CM.PN ---
pt to be dcd today with resumption of care tenders family to transport home
[2021-08-31 11:23] LABS: Glucose, Whole Blood 343 mg/dL (60-115)
--- NOTE | 2021-08-31 11:25 | P.DS_ITS ---
DS: Providers Provider Date of Service: 08/31/21 Date of admission: 08/28/21 15:07 Primary care physician: Monique White MD Consults: 08/29/21 11:36 Consult to Nephrology Routine Consulting Provider: Jere Hayes Reason for consultation: hyponatremia, orthostatic Has provider been notified: No DS: Diagnosis Discharge Diagnosis (1) Acute hyponatremia: Status: Acute (2) Orthostatic hypotension: Status: Acute (3) Hyperkalemia: Status: Acute DS: Summary Hospital Course Hospital Course: HPI from admission H&P: This is an 86 year old female who was brought to the ED by her daughter for dizziness. She was admitted to [facility] from 08/17 to 08/21 for COVID 19 and acute CHF exacerbation. During that time she was treated with IV lasix. She was seen by cardiology and aldactone was added to her regimen.? Her blood pressure during that admission was primarily 140s-150s systolic.? On discharge the only medication change was the addition of Aldactone.? She was also discharged to complete course dexamethasone, which she has since completed.? Since discharge from the hospital her appetite has been good, she has had no nausea, vomiting, diarrhea.? Her daughter monitors her blood pressure closely and since Sunday it has been on the lower side.? It has been as low as high 80s systolic. She has not been taking her metoprolol or lasix for that reason. Today in the emergency department her blood pressure was 146/50 but dropped to 95/40 upon standing. Her sodium levels were also low. She received 500cc of NS and the decision was made to admit her for further management.? Of note, she was recently diagnosed to have a UTI and was started on cirpofloxacin. Her daughter reports that she has taken 3 doses. Hospital Course: Patient presented with hypona and orthostatic hypotension. Her diuretics were held initially and she was treated with gentle IVF. Both hypoNa and orthostatic hypotension resolved with these measures. She had adjustments in her diuretics and bp meds. Her hydralazine (she was on 25mg TID scheduled) will be discontinued and instead hydralazine 25mg PRN BP > 160/90 will be ordered. Her diuretics have been changed from lasix 120mg total daily to 80mg once a day. SHe may continue her low dose aldactone and usual dose toprol xl. D/w her daughter re: rehab placement, but elected for home with services. Will have [facility] for BP / antihypertensive monitoring + PT evaluation. Patients BP / fluid status remain difficult to manage and she will remain high risk for readmissions. Palliative care consult can be considered as an outpatient. Time Spent with Patient Time attestation: Total time spent providing and/or coordinating discharge services: Discharge coordination time: Greater than 30 minutes Quality: Safe Use of Opioids Does Pt have an Active Cancer Diagnosis on the Problem List?: No Quality: Stroke Does the patient have a stroke diagnosis?: No Physical Exam Vital Signs: Vital Signs: Last Vital Signs Temp 97.9 F 08/31/21 07:55 Pulse 58 08/31/21 07:55 Resp 20 08/31/21 07:55 BP 130/64 08/31/21 07:55 Pulse Ox 100 08/31/21 07:55 BMI result Body Mass Index 25.0 Const: Other: General - no acute distress, appears comfortable Cardiovascular - regular rate and rhythm, S1-S2 Lungs - normal respiratory effort, clear to auscultation bilaterally, no wheezing Abdomen - soft, nontender, no rebound or guarding Extremities - no edema bilaterally Neuro - awake and alert, no focal deficits DS: Data Data Completed and Pending Completed studies during hospitalization [Text1]: Procedures Introduction of Remdesivir Anti-infective into Peripheral Vein, Percutaneous Approach, [employer] 5 (08/17/21) Taoist of Cardiac Rhythm, Single (06/01/20) Labs on day of discharge: Laboratory Results - last 24 hr 08/30/21 08/30/21 08/30/21 10:59 16:37 20:05 POC Glucose 334 H 113 247 H Iron TIBC % Saturation Unsat Iron Binding 25-OH Vitamin D Total 08/31/21 08/31/21 08/31/21 06:36 07:26 11:18 POC Glucose 102 343 H Iron 54 TIBC 209 L % Saturation 26 Unsat Iron Binding 155 25-OH Vitamin D Total 19.1 Discharge Plan Discharge Patient Disposition: Home Health Service Discharge Diagnosis: Hyponatremia, orthostatic hypotension Referrals: care tenders [Other] - 1 Week Po,Monique Wesley MD [Primary Care Provider] - 1 Week Discharge Medications: New hydralazine 25 mg tablet 25 mg PO DAILY PRN (Reason: BP>160-90) Qty: 30 0RF Continued (DME) FreeStyle Madeline 14 Day Sensor Kit See Rx Instructions .ROUTE .MEDSUPPLY Qty: 1 6RF Rx Instructions: Dx: E11.65 As directed, 14 days levothyroxine 125 mcg tablet 125 mcg PO DAILY Qty: 90 2RF simvastatin 10 mg tablet 10 mg PO BEDTIME Qty: 90 3RF metoprolol succinate 100 mg tablet extended release 24 hr 100 mg PO DAILY 90 Days Qty: 90 3RF ciprofloxacin HCl [Cipro] 250 mg tablet 250 mg PO BID 5 Days Qty: 10 0RF [employer] SoloStar U-300 Insulin 300 unit/mL (1.5 mL) insulin pen 12 unit subcut QAM Qty: 3 0RF Rx Instructions: or as directed travoprost 0.004 % drops 1 drp ophthalmic (eye) BEDTIME 0RF omeprazole 20 mg capsule,delayed release(DR/EC) 20 mg PO DAILY@0630 0RF insulin lispro [Humalog KwikPen Insulin] 100 unit/mL insulin pen See Protocol sliding scale dose subcut TIDAC 0RF Protocol: Insulin Correction Scale Less than or equal to 110 ---- Give (units): 0 111 to 150 Give (units): 0 151 to 200 Give (units): 2 201 to 250 Give (units): 4 251 to 300 Give (units): 6 301 to 350 Give (units): 8 Greater than 350 Give (units): 10 Call MD if Blood Glucose > : 350 Rx Instructions: or as directed according to sliding scale lactulose 10 gram/15 mL solution 30 ml PO DAILY PRN (Reason: constipation) 0RF acetaminophen 500 mg Tablet 1,000 mg PO TID 0RF glycerin (adult) Suppository 1 supp [place] DAILY PRN (Reason: Constipation) 0RF spironolactone 25 mg Tablet 12.5 mg PO DAILY Qty: 30 0RF Protocol: Hold for SBP< HOLD for SBP < : 90 Xarelto 15 mg tablet 15 mg PO DAILY@1700 0RF Rx Instructions: must administer with evening meal amiodarone 200 mg tablet 200 mg PO DAILY 90 Days Qty: 90 3RF furosemide 80 mg tablet 80 mg PO DAILY 0RF Discontinued hydralazine 25 mg tablet 25 mg PO TID 0RF furosemide 80 mg tablet 40 mg PO BEDTIME 0RF hydralazine 10 mg tablet 1 tab PO ONCE PRN (Reason: blood pressure) 0RF metolazone 2.5 mg tablet 1.25 mg PO DAILY PRN (Reason: Weight Gain) 0RF Discharge Orders: Discharge Order (Routine); Ordered 08/31/21 Ordered By: Esau Dietz Diet: diabetic diet Activity on Discharge: As tolerated Stand Alone Forms: Patient Portal Discharge page Care Plan Goals: To stay healthy and out of the hospital. Health Concerns: hyponatremia, orthostatic hyoptension Plan of Treatment: Take lasix 80mg daily Take hydralazine 25mg once daily when BP > 160/90 Take metoprolol xl 100mg daily follow up with [facility] at home for BP monitoring / PT evaluation Finish your antibiotic course Assessment: See d/c summary
[2021-08-31 11:31] VITALS: BP 130/64; PULSE 58; O2SAT 100
[2021-08-31 11:34] VITALS: BP 139/63; PULSE 58; RESP 20; TEMP 36.3; O2SAT 98
[2021-08-31] MEDS: Insulin Lispro 100 UNIT/ML 3 ML VIAL SUBCUT (12:02)
== END 2021-08-31 13:30 | disposition home health service (06) | DRG 640 ==
LOC: HO.ED 14:06 → HO.EDOVER 15:17 → HO.IMC 08-29 16:32
PROVIDERS: Internal Medicine Nephrology; Nurse Practitioner Acute Care; Admitting Provider Physician Assistant Medical; Emergency Provider Emergency Medicine; PCP Internal Medicine; Visit Provider Family Medicine
DX: E87.1 Hypo-osmolality and hyponatremia (principal); U07.1 COVID-19; N39.0 Urinary tract infection, site not specified; I50.32 Chronic diastolic (congestive) heart failure; I13.0 Hypertensive heart and chronic kidney disease with heart failure and stage 1 through stage 4 chronic kidney disease, or unspecified chronic kidney disease; N18.30 Chronic kidney disease, stage 3 unspecified; E11.22 Type 2 diabetes mellitus with diabetic chronic kidney disease; E78.5 Hyperlipidemia, unspecified; E87.5 Hyperkalemia; I25.10 Atherosclerotic heart disease of native coronary artery without angina pectoris; I95.1 Orthostatic hypotension; E03.9 Hypothyroidism, unspecified; Z96.651 Presence of right artificial knee joint; Z88.5 Allergy status to narcotic agent; Z88.2 Allergy status to sulfonamides; Z79.4 Long term (current) use of insulin; Z79.890 Hormone replacement therapy; Z79.01 Long term (current) use of anticoagulants; Z79.899 Other long term (current) drug therapy
CPT/HCPCS: 36415; 71045; 80048; 80053; 80076; 81001; 81003; 82306; 82947; 83540; 83735; 83880; 83930; 83935; 84100; 84295; 84300; 84443; 84484; 85025; 85610; 87086; 87088; 87635; 93005; 96360; 97162; 99285

== ENCOUNTER 2021-09-13 10:42 | Outpatient (REF) | payer MEDICARE, SELFPAY ==
[2021-09-13 11:04] LABS: MANUAL DIFF FLAG NO
[2021-09-13 11:46] LABS: Basophils Percent Auto 0.6 % (0-2); Eosinophils Absolute Auto 0.2 X10*3/uL (0.0-0.4); Eosinophils Percent Auto 4.8 % (0-4); Hematocrit 29.9 % (37.0-47.0); Hemoglobin 9.5 g/dl (12.0-16.0); Imm Gran Abs Auto 0.02 X10*3/uL (0.00-0.03); Imm Gran Pct Auto 0.4 % (0.0-0.4); Lymphocytes Percent Auto 20.5 % (20-40); Mean Corpuscular HGB Conc 31.8 g/dl (31.0-35.0); Mean Corpuscular Hemoglobin 27.9 pg (27.0-33.0); Mean Corpuscular Volume 87.9 fL (80.0-98.0); Mean Platelet Volume 9.7 fL (9.4-12.3); Monocytes Absolute Auto 0.9 X10*3/uL (0.1-1.2); Neutrophils Absolute Auto 2.7 x10*3/uL (2.0-8.3); Neutrophils Percent Auto 55.7 % (45-73); Platelet Count 286 X10*3/uL (160-400); Red Cell Distribution Width 19.3 % (11.0-16.0); White Blood Count 4.8 X10*3/uL (4.8-10.8)
[2021-09-13 11:52] LABS: Appearance Urine CLEAR; Color Urine STRAW; Glucose Urine UA 250 MG/DL (NEG); Leukocyte Esterase Urine NEG (NEG); Nitrite Urine NEG (NEG); Specific Gravity - Urine <= 1.005 (1.005-1.025); Urine Blood NEG (NEG); Urine Ketones NEG (NEG); Urine Protein NEG (NEG-TRACE)
[2021-09-13 12:15] LABS: Anion Gap 15 (12-20); Blood Urea Nitrogen 24 mg/dL (9-16); Calcium 8.9 mg/dL (8.4-10.2); Carbon Dioxide 27 mmol/L (22-29); Chloride 99 mmol/L (96-108); Estimated Glomerular Filt Rate 44; Glucose Random 248 mg/dL (60-115); Potassium 4.4 mmol/L (3.3-5.1); Sodium 137 mmol/L (135-145)
== END 2021-09-13 10:43 | disposition home or self-care (01) ==
LOC: HO.LAB 10:42
PROVIDERS: Nurse Practitioner Family; PCP Internal Medicine; Visit Provider Internal Medicine
DX: E87.1 Hypo-osmolality and hyponatremia (principal); I10 Essential (primary) hypertension
CPT/HCPCS: 36415; 80048; 81003; 85025

== ENCOUNTER → 2021-09-19 12:44 | Outpatient (BNVA) | payer MEDICARE, SELFPAY | PROVIDERS: PCP Internal Medicine; Referring Provider Internal Medicine; Visit Provider Internal Medicine | DX: I11.0 Hypertensive heart disease with heart failure (principal); I50.32 Chronic diastolic (congestive) heart failure; I25.10 Atherosclerotic heart disease of native coronary artery without angina pectoris; I48.0 Paroxysmal atrial fibrillation; E87.5 Hyperkalemia | CPT/HCPCS: 99212 ==

== ENCOUNTER 2021-09-28 10:16 | Outpatient (REF) | payer MEDICARE, SELFPAY ==
[2021-09-28 10:28] LABS: MANUAL DIFF FLAG NO
[2021-09-28 10:58] LABS: Basophils Absolute Auto 0.1 X10*3/uL (0.0-0.2); Basophils Percent Auto 1.2 % (0-2); Eosinophils Absolute Auto 0.1 X10*3/uL (0.0-0.4); Eosinophils Percent Auto 1.3 % (0-4); Hematocrit 30.9 % (37.0-47.0); Hemoglobin 9.8 g/dl (12.0-16.0); Imm Gran Abs Auto 0.06 X10*3/uL (0.00-0.03); Imm Gran Pct Auto 0.8 % (0.0-0.4); Lymphocytes Absolute Auto 1.2 X10*3/uL (1.2-4.9); Lymphocytes Percent Auto 15.7 % (20-40); Mean Corpuscular HGB Conc 31.7 g/dl (31.0-35.0); Mean Corpuscular Hemoglobin 28.2 pg (27.0-33.0); Mean Platelet Volume 9.9 fL (9.4-12.3); Monocytes Percent Auto 13.6 % (2-11); Neutrophils Absolute Auto 5.1 x10*3/uL (2.0-8.3); Neutrophils Percent Auto 67.4 % (45-73); Platelet Count 318 X10*3/uL (160-400); Red Blood Count 3.47 X10*6/uL (4.20-5.50); Red Cell Distribution Width 18.7 % (11.0-16.0); Retic HGB Equivalent 33.9 pg (30.0-35.0); Reticulocyte Percent 2.1 % (0.5-1.8); Reticulocytes Absolute 0.073 X10*6/uL (0.026-0.095); White Blood Count 7.6 X10*3/uL (4.8-10.8)
[2021-09-28 11:24] LABS: Iron 48 mcg/dL (30-160); Percent Iron Saturation 15 % (15-50); Total Iron Binding Capacity 317 mcg/dL (228-428); Unsaturated Iron Binding 269 ug/dL
[2021-09-28 11:28] LABS: B Type Natriuretic Peptide 667 pg/mL (<100)
[2021-09-28 11:43] LABS: Ferritin 47 ng/mL (10-250)
[2021-09-28 12:01] LABS: Folate > 20.0 ng/mL (> or = 4.0); Vitamin B12 607 pg/mL (200-900)
== END 2021-09-28 10:17 | disposition home or self-care (01) ==
LOC: HO.LAB 10:16
PROVIDERS: Nurse Practitioner Family; PCP Internal Medicine; Visit Provider Internal Medicine
DX: I48.0 Paroxysmal atrial fibrillation (principal); D64.9 Anemia, unspecified
CPT/HCPCS: 36415; 82607; 82728; 82746; 83540; 83880; 85025; 85045

== ENCOUNTER 2021-10-03 15:33 | Outpatient (REF) | payer MEDICARE, SELFPAY ==
[2021-10-03 15:56] LABS: MANUAL DIFF FLAG NO
[2021-10-03 16:50] LABS: Basophils Absolute Auto 0.1 X10*3/uL (0.0-0.2); Basophils Percent Auto 1.4 % (0-2); Eosinophils Absolute Auto 0.1 X10*3/uL (0.0-0.4); Eosinophils Percent Auto 1.8 % (0-4); Hematocrit 29.4 % (37.0-47.0); Hemoglobin 9.4 g/dl (12.0-16.0); Imm Gran Abs Auto 0.03 X10*3/uL (0.00-0.03); Imm Gran Pct Auto 0.4 % (0.0-0.4); Lymphocytes Absolute Auto 1.6 X10*3/uL (1.2-4.9); Lymphocytes Percent Auto 22.2 % (20-40); Mean Corpuscular Hemoglobin 28.9 pg (27.0-33.0); Mean Corpuscular Volume 90.5 fL (80.0-98.0); Mean Platelet Volume 10.7 fL (9.4-12.3); Monocytes Absolute Auto 0.9 X10*3/uL (0.1-1.2); Monocytes Percent Auto 13.3 % (2-11); Neutrophils Absolute Auto 4.3 x10*3/uL (2.0-8.3); Neutrophils Percent Auto 60.9 % (45-73); Platelet Count 302 X10*3/uL (160-400); Red Blood Count 3.25 X10*6/uL (4.20-5.50); Red Cell Distribution Width 18.9 % (11.0-16.0); White Blood Count 7.1 X10*3/uL (4.8-10.8)
[2021-10-03 18:17] LABS: Folate > 20.0 ng/mL (> or = 4.0); Vitamin B12 538 pg/mL (200-900)
[2021-10-03 18:26] LABS: Anion Gap 14 (12-20); Blood Urea Nitrogen 28 mg/dL (9-16); Calcium 8.5 mg/dL (8.4-10.2); Carbon Dioxide 26 mmol/L (22-29); Chloride 102 mmol/L (96-108); Estimated Glomerular Filt Rate 35; Glucose Random 279 mg/dL (60-115); Potassium 4.5 mmol/L (3.3-5.1); Sodium 137 mmol/L (135-145)
== END 2021-10-03 15:34 | disposition home or self-care (01) ==
LOC: HO.LAB 15:33
PROVIDERS: Absent Provider Internal Medicine Hypertension Specialist; PCP Internal Medicine; Visit Provider Nurse Practitioner Family
DX: E87.1 Hypo-osmolality and hyponatremia (principal); D64.9 Anemia, unspecified; I10 Essential (primary) hypertension; N39.0 Urinary tract infection, site not specified
CPT/HCPCS: 36415; 80048; 82607; 82746; 85025; 87086

== ENCOUNTER → 2021-10-20 14:14 | Outpatient (BNVA) | payer MEDICARE, SELFPAY | PROVIDERS: PCP Internal Medicine; Visit Provider Orthopaedic Surgery | DX: M17.12 Unilateral primary osteoarthritis, left knee (principal); Z96.651 Presence of right artificial knee joint | CPT/HCPCS: 20610; 99212; J1100 ==

== ENCOUNTER 2021-10-28 10:48 | Outpatient (REF) | payer MEDICARE, SELFPAY ==
[2021-10-28 11:06] LABS: MANUAL DIFF FLAG NO
[2021-10-28 12:16] LABS: Basophils Absolute Auto 0.1 X10*3/uL (0.0-0.2); Basophils Percent Auto 0.8 % (0-2); Eosinophils Absolute Auto 0.3 X10*3/uL (0.0-0.4); Hematocrit 30.5 % (37.0-47.0); Hemoglobin 9.7 g/dl (12.0-16.0); Imm Gran Abs Auto 0.05 X10*3/uL (0.00-0.03); Imm Gran Pct Auto 0.7 % (0.0-0.4); Lymphocytes Absolute Auto 1.7 X10*3/uL (1.2-4.9); Lymphocytes Percent Auto 22.6 % (20-40); Mean Corpuscular HGB Conc 31.8 g/dl (31.0-35.0); Mean Corpuscular Hemoglobin 29.1 pg (27.0-33.0); Mean Corpuscular Volume 91.6 fL (80.0-98.0); Monocytes Absolute Auto 1.1 X10*3/uL (0.1-1.2); Monocytes Percent Auto 14.7 % (2-11); Neutrophils Absolute Auto 4.3 x10*3/uL (2.0-8.3); Neutrophils Percent Auto 57.2 % (45-73); Platelet Count 257 X10*3/uL (160-400); Red Blood Count 3.33 X10*6/uL (4.20-5.50); Red Cell Distribution Width 17.1 % (11.0-16.0); White Blood Count 7.4 X10*3/uL (4.8-10.8)
[2021-10-28 12:46] LABS: B Type Natriuretic Peptide 504 pg/mL (<100)
== END 2021-10-28 10:49 | disposition home or self-care (01) ==
LOC: HO.LAB 10:48
PROVIDERS: Absent Provider Nurse Practitioner Family; PCP Internal Medicine; Visit Provider Internal Medicine Hypertension Specialist
DX: I12.9 Hypertensive chronic kidney disease with stage 1 through stage 4 chronic kidney disease, or unspecified chronic kidney disease (principal); N18.4 Chronic kidney disease, stage 4 (severe); N39.0 Urinary tract infection, site not specified
CPT/HCPCS: 36415; 83880; 85025; 87086

== ENCOUNTER → 2021-11-21 10:42 | Outpatient (BNVA) | payer MEDICARE, SELFPAY | PROVIDERS: PCP Internal Medicine; Referring Provider Internal Medicine; Visit Provider Internal Medicine | DX: I11.0 Hypertensive heart disease with heart failure (principal); I50.32 Chronic diastolic (congestive) heart failure; I25.10 Atherosclerotic heart disease of native coronary artery without angina pectoris; I48.0 Paroxysmal atrial fibrillation; E78.5 Hyperlipidemia, unspecified | CPT/HCPCS: 93005; 99212 ==

== ENCOUNTER 2021-12-26 12:24 | Outpatient (REF) | payer MEDICARE, SELFPAY ==
[2021-12-26 12:40] LABS: MANUAL DIFF FLAG NO
[2021-12-26 12:45] LABS: Basophils Absolute Auto 0.1 X10*3/uL (0.0-0.2); Basophils Percent Auto 0.8 % (0-2); Eosinophils Absolute Auto 0.2 X10*3/uL (0.0-0.4); Eosinophils Percent Auto 2.1 % (0-4); Hematocrit 32.3 % (37.0-47.0); Hemoglobin 10.7 g/dl (12.0-16.0); Imm Gran Abs Auto 0.04 X10*3/uL (0.00-0.03); Imm Gran Pct Auto 0.5 % (0.0-0.4); Lymphocytes Absolute Auto 1.5 X10*3/uL (1.2-4.9); Lymphocytes Percent Auto 17.8 % (20-40); Mean Corpuscular HGB Conc 33.1 g/dl (31.0-35.0); Mean Corpuscular Hemoglobin 29.2 pg (27.0-33.0); Mean Corpuscular Volume 88.3 fL (80.0-98.0); Mean Platelet Volume 10.4 fL (9.4-12.3); Monocytes Absolute Auto 0.9 X10*3/uL (0.1-1.2); Monocytes Percent Auto 10.8 % (2-11); Neutrophils Absolute Auto 5.8 x10*3/uL (2.0-8.3); Platelet Count 261 X10*3/uL (160-400); Red Blood Count 3.66 X10*6/uL (4.20-5.50); Red Cell Distribution Width 15.7 % (11.0-16.0); White Blood Count 8.6 X10*3/uL (4.8-10.8)
[2021-12-26 13:20] LABS: Alanine Aminotransferase 24 U/L (0-31); Albumin Level 4.3 g/dL (3.5-5.0); Alkaline Phosphatase 91 U/L (39-117); Anion Gap 17 (12-20); Aspartate Amino Transferase 25 U/L (5-31); Bilirubin Total 0.6 mg/dL (0.0-1.0); Blood Urea Nitrogen 44 mg/dL (9-16); Calcium 9.3 mg/dL (8.4-10.2); Carbon Dioxide 28 mmol/L (22-29); Chloride 92 mmol/L (96-108); Estimated Glomerular Filt Rate 32; Glucose Random 233 mg/dL (60-115); Magnesium 2.7 mg/dL (1.6-2.6); Potassium 4.3 mmol/L (3.3-5.1); Sodium 133 mmol/L (135-145); Total Protein 6.9 g/dL (6.5-8.0)
[2021-12-26 13:23] LABS: B Type Natriuretic Peptide 342 pg/mL (<100)
[2021-12-26 13:43] LABS: Free T4 (Free Thyroxine) 2.15 ng/dL (0.71-1.85); Thyroid Stimulating Hormone 0.45 uIU/mL (0.32-4.0)
[2021-12-26 15:08] LABS: Appearance Urine Clear; Color Urine Yellow; Glucose Urine UA Negative (Negative); Leukocyte Esterase Urine Moderate (2+) (Negative); Nitrite Urine Negative (Negative); PH 6.5 (5.0-9.0); Specific Gravity - Urine <= 1.005 (1.005-1.025); UMIC TRIGGER UACC YES; Urine Blood Negative (Negative); Urine Ketones Negative (Negative); Urine Protein Negative (Neg-Trace)
[2021-12-26 15:14] LABS: Bacteria Urine 4+ (None Seen); Hyaline Casts Urine 0-2 /LPF (0-2); RBC Urine 0-2 /HPF (0-2); Squamous Epithelial Cell Urine 0-2 /HPF (0-2); UACC Culture Trigger YES
== END 2021-12-26 12:25 | disposition home or self-care (01) ==
LOC: HO.LAB 12:24
PROVIDERS: PCP Internal Medicine; Visit Provider Internal Medicine
DX: I50.32 Chronic diastolic (congestive) heart failure (principal); I48.0 Paroxysmal atrial fibrillation
CPT/HCPCS: 36415; 80053; 81001; 81003; 83735; 83880; 84439; 84443; 85025; 87086; 87088; 87186

== ENCOUNTER → 2021-12-27 13:15 | Outpatient (BNVA) | payer MEDICARE, SELFPAY | PROVIDERS: PCP Internal Medicine; Referring Provider Internal Medicine; Visit Provider Internal Medicine | DX: I48.0 Paroxysmal atrial fibrillation (principal); I11.0 Hypertensive heart disease with heart failure; I50.32 Chronic diastolic (congestive) heart failure; I25.10 Atherosclerotic heart disease of native coronary artery without angina pectoris; E87.5 Hyperkalemia | CPT/HCPCS: 99212 ==

== ENCOUNTER 2022-01-11 10:24 | Outpatient (REF) | payer MEDICARE, SELFPAY ==
--- NOTE | ~2022-01-11 | CT_ITS ---
EXAMINATION: CT HEAD WITHOUT CONTRAST CLINICAL INFORMATION: Unspecified mental disorder due to known physiologic condition. COMPARISON: Head CT 12/09/2019. TECHNIQUE: Contiguous axial imaging was performed from the skull base to vertex without intravenous administration of contrast. This CT examination was performed using dose optimization techniques as appropriate, variously including the following: *Automated exposure control *Adjustment of mA and/or kV according to patient size (this includes techniques or standardized protocols for targeted exams where dose is matched to indication/reason for exam; i.e. extremities or head) *Use of iterative reconstruction technique DLP: 633 mGy-cm. FINDINGS: There is no intracranial hemorrhage, large infarction, or mass lesion. There is no extra-axial collection. Patchy hypoattenuation is seen within the cerebral white matter, compatible with mild chronic microangiopathy. The ventricles and sulci are commensurate with mild degree of brain parenchymal volume loss noted, unchanged compared with prior. There is prominence of the right-sided retrocerebellar CSF without interval change. There is mild paranasal sinus mucosal thickening without fluid levels. CT/CT head/brain wo IV con IMPRESSION: No acute intracranial abnormality. Mild diffuse brain parenchymal volume loss and mild chronic microangiopathy.
== END 2022-01-11 10:25 | disposition home or self-care (01) ==
LOC: HO.CT 10:24
PROVIDERS: PCP Internal Medicine; Visit Provider Internal Medicine
DX: F09 Unspecified mental disorder due to known physiological condition (principal)
CPT/HCPCS: 70450

== ENCOUNTER 2022-01-17 11:50 | Outpatient (REF) | payer MEDICARE, SELFPAY ==
[2022-01-17 13:27] LABS: Appearance Urine Clear; Color Urine Yellow; Glucose Urine UA Negative (Negative); Leukocyte Esterase Urine Trace (Negative); Nitrite Urine Negative (Negative); PH 6.5 (5.0-9.0); UMIC TRIGGER UACC YES; Urine Blood Negative (Negative); Urine Ketones Negative (Negative); Urine Protein Trace mg/dL (Neg-Trace)
[2022-01-17 13:39] LABS: Bacteria Urine None Seen (None Seen); Hyaline Casts Urine 0-2 /LPF (0-2); RBC Urine 0-2 /HPF (0-2); Squamous Epithelial Cell Urine 0-2 /HPF (0-2); WBC Urine 0-5 /HPF (0-5)
== END 2022-01-17 11:51 | disposition home or self-care (01) ==
LOC: HO.LAB 11:50
PROVIDERS: PCP Internal Medicine; Visit Provider Internal Medicine
DX: N39.0 Urinary tract infection, site not specified (principal)
CPT/HCPCS: 81001

== ENCOUNTER 2022-01-31 10:25 | Outpatient (REF) | payer MEDICARE, SELFPAY ==
[2022-01-31 10:45] LABS: MANUAL DIFF FLAG NO
[2022-01-31 11:42] LABS: Appearance Urine Cloudy; Color Urine Yellow; Glucose Urine UA >=1000 mg/dL (Negative); Leukocyte Esterase Urine Moderate (2+) (Negative); Nitrite Urine Negative (Negative); UMIC TRIGGER UA YES; UMIC TRIGGER UACC YES; Urine Blood Negative (Negative); Urine Ketones Negative (Negative); Urine Protein 100 (2+) mg/dL (Neg-Trace)
[2022-01-31 11:43] LABS: Basophils Absolute Auto 0.1 X10*3/uL (0.0-0.2); Basophils Percent Auto 0.9 % (0-2); Eosinophils Absolute Auto 0.1 X10*3/uL (0.0-0.4); Eosinophils Percent Auto 0.8 % (0-4); Hematocrit 35.3 % (37.0-47.0); Hemoglobin 11.7 g/dl (12.0-16.0); Imm Gran Abs Auto 0.06 X10*3/uL (0.00-0.03); Imm Gran Pct Auto 0.8 % (0.0-0.4); Lymphocytes Absolute Auto 1.7 X10*3/uL (1.2-4.9); Lymphocytes Percent Auto 22.1 % (20-40); Mean Corpuscular HGB Conc 33.1 g/dl (31.0-35.0); Mean Corpuscular Hemoglobin 30.2 pg (27.0-33.0); Mean Corpuscular Volume 91.2 fL (80.0-98.0); Mean Platelet Volume 10.5 fL (9.4-12.3); Monocytes Absolute Auto 0.9 X10*3/uL (0.1-1.2); Monocytes Percent Auto 11.7 % (2-11); Neutrophils Absolute Auto 4.9 x10*3/uL (2.0-8.3); Neutrophils Percent Auto 63.7 % (45-73); Platelet Count 293 X10*3/uL (160-400); Red Blood Count 3.87 X10*6/uL (4.20-5.50); Red Cell Distribution Width 16.4 % (11.0-16.0); White Blood Count 7.7 X10*3/uL (4.8-10.8)
[2022-01-31 11:47] LABS: Bacteria Urine None Seen (None Seen); Hyaline Casts Urine 0-2 /LPF (0-2); RBC Urine 0-2 /HPF (0-2); Squamous Epithelial Cell Urine 0-2 /HPF (0-2); UACC Culture Trigger YES; WBC Urine 21-50 /HPF (0-5)
[2022-01-31 12:43] LABS: Alanine Aminotransferase 16 U/L (0-31); Alkaline Phosphatase 79 U/L (39-117); Anion Gap 18 (12-20); Aspartate Amino Transferase 14 U/L (5-31); Bilirubin Total 0.4 mg/dL (0.0-1.0); Blood Urea Nitrogen 31 mg/dL (9-16); Carbon Dioxide 27 mmol/L (22-29); Chloride 96 mmol/L (96-108); Estimated Glomerular Filt Rate 37; Potassium 3.9 mmol/L (3.3-5.1); Sodium 137 mmol/L (135-145); Total Protein 6.4 g/dL (6.5-8.0)
[2022-01-31 12:45] LABS: Glucose Random 371 mg/dL (60-115)
[2022-01-31 13:01] LABS: Free T4 (Free Thyroxine) 1.63 ng/dL (0.71-1.85); Thyroid Stimulating Hormone 0.52 uIU/mL (0.32-4.0)
== END 2022-01-31 10:26 | disposition home or self-care (01) ==
LOC: HO.LAB 10:25
PROVIDERS: PCP Internal Medicine; Visit Provider Internal Medicine
DX: E87.1 Hypo-osmolality and hyponatremia (principal)
CPT/HCPCS: 36415; 80053; 81001; 84439; 84443; 85025; 87086; 87088; 87186

== ENCOUNTER 2022-02-06 10:46 | Outpatient (REF) | payer MEDICARE, SELFPAY ==
[2022-02-06 10:58] LABS: MANUAL DIFF FLAG NO
[2022-02-06 11:53] LABS: Basophils Absolute Auto 0.1 X10*3/uL (0.0-0.2); Basophils Percent Auto 0.7 % (0-2); Eosinophils Absolute Auto 0.1 X10*3/uL (0.0-0.4); Eosinophils Percent Auto 0.9 % (0-4); Hematocrit 34.1 % (37.0-47.0); Hemoglobin 11.4 g/dl (12.0-16.0); Imm Gran Abs Auto 0.13 X10*3/uL (0.00-0.03); Imm Gran Pct Auto 1.3 % (0.0-0.4); Lymphocytes Percent Auto 19.3 % (20-40); Mean Corpuscular HGB Conc 33.4 g/dl (31.0-35.0); Mean Corpuscular Hemoglobin 30.6 pg (27.0-33.0); Mean Corpuscular Volume 91.7 fL (80.0-98.0); Mean Platelet Volume 9.7 fL (9.4-12.3); Monocytes Percent Auto 9.9 % (2-11); Neutrophils Absolute Auto 7.1 x10*3/uL (2.0-8.3); Neutrophils Percent Auto 67.9 % (45-73); Platelet Count 325 X10*3/uL (160-400); Red Blood Count 3.72 X10*6/uL (4.20-5.50); Red Cell Distribution Width 17.1 % (11.0-16.0); White Blood Count 10.4 X10*3/uL (4.8-10.8)
[2022-02-06 12:37] LABS: Alanine Aminotransferase 16 U/L (0-31); Albumin Level 3.7 g/dL (3.5-5.0); Alkaline Phosphatase 68 U/L (39-117); Anion Gap 14 (12-20); Aspartate Amino Transferase 16 U/L (5-31); Bilirubin Total 0.6 mg/dL (0.0-1.0); Blood Urea Nitrogen 24 mg/dL (9-16); Calcium 9.2 mg/dL (8.4-10.2); Carbon Dioxide 28 mmol/L (22-29); Chloride 96 mmol/L (96-108); Estimated Glomerular Filt Rate 41; Glucose Random 203 mg/dL (60-115); Magnesium 2.5 mg/dL (1.6-2.6); Phosphorus 2.7 mg/dL (2.7-4.5); Potassium 4.4 mmol/L (3.3-5.1); Sodium 134 mmol/L (135-145); Total Protein 6.1 g/dL (6.5-8.0)
[2022-02-06 13:51] LABS: Appearance Urine Clear; Color Urine Yellow; Glucose Urine UA >=1000 mg/dL (Negative); Leukocyte Esterase Urine Negative (Negative); Nitrite Urine Negative (Negative); UMIC TRIGGER UA YES; Urine Blood Negative (Negative); Urine Ketones Negative (Negative); Urine Protein 30 (1+) mg/dL (Neg-Trace)
[2022-02-06 14:21] LABS: RBC Urine 0-2 /HPF (0-2); WBC Urine 0-5 /HPF (0-5)
[2022-02-06 14:22] LABS: Bacteria Urine None Seen (None Seen); Hyaline Casts Urine 0-2 /LPF (0-2); Squamous Epithelial Cell Urine 0-2 /HPF (0-2)
== END 2022-02-06 10:47 | disposition home or self-care (01) ==
LOC: HO.LAB 10:46
PROVIDERS: Internal Medicine; PCP Internal Medicine; Visit Provider Internal Medicine
DX: F09 Unspecified mental disorder due to known physiological condition (principal); E87.1 Hypo-osmolality and hyponatremia; I50.32 Chronic diastolic (congestive) heart failure; N39.0 Urinary tract infection, site not specified; I48.91 Unspecified atrial fibrillation
CPT/HCPCS: 36415; 80048; 80053; 81001; 81003; 83735; 84100; 85025

== ENCOUNTER → 2022-02-20 10:49 | Outpatient (BNVA) | payer MEDICARE, SELFPAY | PROVIDERS: PCP Internal Medicine; Referring Provider Internal Medicine; Visit Provider Internal Medicine | DX: I11.0 Hypertensive heart disease with heart failure (principal); I50.32 Chronic diastolic (congestive) heart failure; I25.10 Atherosclerotic heart disease of native coronary artery without angina pectoris; I48.0 Paroxysmal atrial fibrillation; E78.5 Hyperlipidemia, unspecified | CPT/HCPCS: 93005; 99212 ==

== ENCOUNTER 2022-03-23 12:34 | Outpatient (REF) | payer MEDICARE, SELFPAY ==
[2022-03-23 12:46] LABS: MANUAL DIFF FLAG NO
[2022-03-23 13:00] LABS: Basophils Absolute Auto 0.1 X10*3/uL (0.0-0.2); Basophils Percent Auto 0.5 % (0-2); Eosinophils Absolute Auto 0.1 X10*3/uL (0.0-0.4); Eosinophils Percent Auto 0.7 % (0-4); Hematocrit 36.1 % (37.0-47.0); Hemoglobin 11.7 g/dl (12.0-16.0); Imm Gran Abs Auto 0.07 X10*3/uL (0.00-0.03); Imm Gran Pct Auto 0.6 % (0.0-0.4); Mean Corpuscular HGB Conc 32.4 g/dl (31.0-35.0); Mean Corpuscular Hemoglobin 31.4 pg (27.0-33.0); Mean Corpuscular Volume 96.8 fL (80.0-98.0); Mean Platelet Volume 10.1 fL (9.4-12.3); Monocytes Absolute Auto 1.1 X10*3/uL (0.1-1.2); Monocytes Percent Auto 10.3 % (2-11); Neutrophils Absolute Auto 7.7 x10*3/uL (2.0-8.3); Neutrophils Percent Auto 69.9 % (45-73); Platelet Count 319 X10*3/uL (160-400); Red Blood Count 3.73 X10*6/uL (4.20-5.50); Red Cell Distribution Width 17.3 % (11.0-16.0)
[2022-03-23 13:29] LABS: Appearance Urine Clear; Color Urine Yellow; Glucose Urine UA >=1000 mg/dL (Negative); Leukocyte Esterase Urine Negative (Negative); Nitrite Urine Negative (Negative); UMIC TRIGGER UACC YES; Urine Blood Negative (Negative); Urine Ketones Negative (Negative); Urine Protein 100 (2+) mg/dL (Neg-Trace)
[2022-03-23 13:30] LABS: Magnesium 2.5 mg/dL (1.6-2.6)
[2022-03-23 13:35] LABS: Bacteria Urine None Seen (None Seen); RBC Urine 0-2 /HPF (0-2); Squamous Epithelial Cell Urine 0-2 /HPF (0-2); WBC Urine 0-5 /HPF (0-5)
== END 2022-03-23 12:35 | disposition home or self-care (01) ==
LOC: HO.LAB 12:34
PROVIDERS: PCP Internal Medicine; Visit Provider Internal Medicine
DX: R41.89 Other symptoms and signs involving cognitive functions and awareness (principal)
CPT/HCPCS: 36415; 81001; 83735; 85025

== ENCOUNTER 2022-04-06 15:53 | Outpatient (REF) | payer MEDICARE, SELFPAY ==
[2022-04-06 17:50] LABS: Appearance Urine Clear; Color Urine Yellow; Glucose Urine UA 500 mg/dL (Negative); Leukocyte Esterase Urine Negative (Negative); Nitrite Urine Negative (Negative); Specific Gravity - Urine 1.015 (1.005-1.025); UMIC TRIGGER UACC YES; Urine Blood Negative (Negative); Urine Ketones Negative (Negative); Urine Protein 100 (2+) mg/dL (Neg-Trace)
[2022-04-06 18:02] LABS: Bacteria Urine None Seen (None Seen); RBC Urine 0-2 /HPF (0-2); Squamous Epithelial Cell Urine 0-2 /HPF (0-2); WBC Urine 0-5 /HPF (0-5)
== END 2022-04-06 15:54 | disposition home or self-care (01) ==
LOC: HO.LAB 15:53
PROVIDERS: PCP Internal Medicine; Visit Provider Internal Medicine
DX: N39.0 Urinary tract infection, site not specified (principal)
CPT/HCPCS: 81001

== ENCOUNTER 2022-05-22 08:55 | Outpatient (REF) | payer MEDICARE, SELFPAY ==
[2022-05-22 09:20] LABS: MANUAL DIFF FLAG NO
[2022-05-22 09:30] LABS: Basophils Absolute Auto 0.1 X10*3/uL (0.0-0.2); Basophils Percent Auto 1.3 % (0-2); Eosinophils Absolute Auto 0.3 X10*3/uL (0.0-0.4); Eosinophils Percent Auto 3.2 % (0-4); Hemoglobin 10.3 g/dl (12.0-16.0); Imm Gran Abs Auto 0.05 X10*3/uL (0.00-0.03); Imm Gran Pct Auto 0.6 % (0.0-0.4); Immature Retic Fraction 9.3 % (3.0-15.9); Lymphocytes Absolute Auto 1.3 X10*3/uL (1.2-4.9); Lymphocytes Percent Auto 15.8 % (20-40); Mean Corpuscular HGB Conc 32.2 g/dl (31.0-35.0); Mean Corpuscular Hemoglobin 31.3 pg (27.0-33.0); Mean Corpuscular Volume 97.3 fL (80.0-98.0); Mean Platelet Volume 9.8 fL (9.4-12.3); Monocytes Absolute Auto 0.8 X10*3/uL (0.1-1.2); Monocytes Percent Auto 9.8 % (2-11); Neutrophils Absolute Auto 5.5 x10*3/uL (2.0-8.3); Neutrophils Percent Auto 69.3 % (45-73); Platelet Count 405 X10*3/uL (160-400); Red Blood Count 3.29 X10*6/uL (4.20-5.50); Red Cell Distribution Width 13.2 % (11.0-16.0); Retic HGB Equivalent 33.8 pg (30.0-35.0); Reticulocyte Percent 1.7 % (0.5-1.8); Reticulocytes Absolute 0.055 X10*6/uL (0.026-0.095); White Blood Count 7.9 X10*3/uL (4.8-10.8)
[2022-05-22 09:43] LABS: Estimated Average Glucose 232 mg/dL; Hemoglobin A1c % 9.7 %
[2022-05-22 09:56] LABS: B Type Natriuretic Peptide 398 pg/mL (<100)
[2022-05-22 10:42] LABS: Alanine Aminotransferase 20 U/L (0-31); Albumin Level 3.7 g/dL (3.5-5.0); Alkaline Phosphatase 118 U/L (39-117); Anion Gap 17 (12-20); Aspartate Amino Transferase 16 U/L (5-31); Bilirubin Total 0.3 mg/dL (0.0-1.0); Blood Urea Nitrogen 38 mg/dL (9-16); Calcium 9.1 mg/dL (8.4-10.2); Carbon Dioxide 27 mmol/L (22-29); Chloride 97 mmol/L (96-108); Cholesterol 176 mg/dL; Estimated Glomerular Filt Rate 38; Ferritin 44 ng/mL (10-250); Folate 13.2 ng/mL (> or = 4.0); Free T4 (Free Thyroxine) 2.19 ng/dL (0.71-1.85); Glucose Random 398 mg/dL (60-115); HDL Cholesterol 66 mg/dL; Iron 51 mcg/dL (30-160); LDL Cholesterol Calculated 92 mg/dl; Percent Iron Saturation 19 % (15-50); Potassium 4.7 mmol/L (3.3-5.1); Sodium 136 mmol/L (135-145); Thyroid Stimulating Hormone 2.56 uIU/mL (0.32-4.0); Total Iron Binding Capacity 273 mcg/dL (228-428); Triglycerides 90 mg/dL; Unsaturated Iron Binding 222 ug/dL; Vitamin B12 607 pg/mL (200-900); Vitamin D 25-OH Total 19.6 ng/mL (>30)
[2022-05-22 11:32] LABS: Creatinine Urine 31.16 mg/dL; Microalbum/Creatinine Ratio Ur 901.7 ug/mg cr
== END 2022-05-22 08:56 | disposition home or self-care (01) ==
LOC: HO.LAB 08:55
PROVIDERS: PCP Internal Medicine; Visit Provider Internal Medicine
DX: E11.65 Type 2 diabetes mellitus with hyperglycemia (principal); E78.00 Pure hypercholesterolemia, unspecified; M81.0 Age-related osteoporosis without current pathological fracture; Z79.4 Long term (current) use of insulin
CPT/HCPCS: 36415; 80053; 80061; 82043; 82306; 82607; 82728; 82746; 83036; 83540; 83880; 84439; 84443; 85025; 85045

== ENCOUNTER 2022-06-16 08:28 | Outpatient (REF) | payer MEDICARE, SELFPAY ==
--- NOTE | ~2022-06-16 | US_ITS ---
EXAMINATION: US ABDOMEN COMPLETE CLINICAL INFORMATION: Other unspecified abnormal findings of blood chemistry. COMPARISON: Renal ultrasound 05/31/2020. TECHNIQUE: Real-time imaging of the abdominal viscera. Technically limited study secondary to body habitus. FINDINGS: PANCREAS: Limited. The visualized pancreatic head and body are normal in appearance. The remainder of the pancreas is obscured from visualization by the overlying bowel gas. ABDOMINAL AORTA: The proximal, mid, and distal segments are normal in caliber. INFERIOR VENA CAVA: Visualized portions are normal. LIVER: Normal. The liver is normal in size. The liver contour is normal. Parenchymal echogenicity is normal. No focal hepatic lesion. There is no intrahepatic biliary duct dilatation seen. GALLBLADDER: Surgically absent. COMMON BILE DUCT: Normal in caliber measuring 0.2 cm in diameter. RIGHT KIDNEY: Normal. No hydronephrosis. No renal calculi or focal parenchymal lesions. The kidney measures 7.0 cm in maximum dimension. LEFT KIDNEY: At the upper pole, a 1.0 cm in maximal diameter anechoic, simple cyst is seen. At the lower pole, a 1.2 cm in maximal diameter anechoic, simple cyst is seen. No hydronephrosis or renal calculi. The kidney measures 10.4 cm in maximum dimension. SPLEEN: Normal. The spleen measures 6.8 cm in maximum dimension. FREE FLUID: None. US/US abdomen complete IMPRESSION: 1. Benign, simple left renal cysts are seen, which no imaging follow-up is recommended. 2. The gallbladder is surgically absent. 3. Technically limited ultrasound examination of the pancreatic tail.
== END 2022-06-16 08:29 | disposition home or self-care (01) ==
LOC: HO.US 08:28
PROVIDERS: PCP Internal Medicine; Visit Provider Internal Medicine
DX: M76.32 Iliotibial band syndrome, left leg (principal); R79.89 Other specified abnormal findings of blood chemistry
CPT/HCPCS: 76700

== ENCOUNTER → 2022-07-18 10:48 | Outpatient (BNVA) | payer MEDICARE, SELFPAY | PROVIDERS: PCP Internal Medicine; Referring Provider Internal Medicine; Visit Provider Internal Medicine | DX: I11.0 Hypertensive heart disease with heart failure (principal); I50.32 Chronic diastolic (congestive) heart failure; I25.10 Atherosclerotic heart disease of native coronary artery without angina pectoris; I48.0 Paroxysmal atrial fibrillation; E78.5 Hyperlipidemia, unspecified | CPT/HCPCS: 93005; 99212 ==

== ENCOUNTER 2022-08-10 09:28 | Outpatient (REF) | payer MEDICARE, SELFPAY ==
--- NOTE | ~2022-08-10 | MM_ITS ---
EXAMINATION: MM SCREENING DIGITAL BREAST TOMOSYNTHESIS, BILATERAL CLINICAL INFORMATION: Screening. Asymptomatic. COMPARISON: Mammography: 06/09/2021, 03/23/2015, 02/03/2014; ultrasound right breast 06/09/2021. TECHNIQUE: Digital breast tomosynthesis is performed in both the craniocaudal and mediolateral oblique views along with computer-aided detection (CAD). Synthesized 2D images are generated from the tomosynthesis. FINDINGS: The breasts are heterogeneously dense, which may obscure small masses (ACR BI-RADS breast composition Category c). Parenchymal pattern is similar to prior studies. Again, there is chronic global asymmetry central upper right breast and scattered inhomogeneous parenchymal pattern. There is no architectural distortion, significant mass, or developing density. The simple cyst anterior 8:00 right breast is slightly larger. Again, there are bilateral coarse and vascular calcifications. The axilla and skin contours are unremarkable. No significant changes. MM/MM tomosynthesis screening BI IMPRESSION: No significant changes from prior exam. ASSESSMENT: BI-RADS 2: Benign RECOMMENDATION: Routine annual mammography screening. This patient's information was entered into a reminder system with a target due date for their next mammogram.
== END 2022-08-10 09:29 | disposition home or self-care (01) ==
LOC: HO.MAMMO 09:28
PROVIDERS: PCP Internal Medicine; Visit Provider Internal Medicine
DX: Z12.31 Encounter for screening mammogram for malignant neoplasm of breast (principal)
CPT/HCPCS: 77063; 77067

== ENCOUNTER 2022-08-30 12:00 | Outpatient (REF) | payer MEDICARE, SELFPAY ==
[2022-08-30 12:13] LABS: MANUAL DIFF FLAG NO
[2022-08-30 12:50] LABS: Basophils Absolute Auto 0.1 X10*3/uL (0.0-0.2); Basophils Percent Auto 1.3 % (0-2); Eosinophils Absolute Auto 0.5 X10*3/uL (0.0-0.4); Eosinophils Percent Auto 7.2 % (0-4); Hematocrit 33.3 % (37.0-47.0); Hemoglobin 10.9 g/dl (12.0-16.0); Imm Gran Abs Auto 0.03 X10*3/uL (0.00-0.03); Imm Gran Pct Auto 0.4 % (0.0-0.4); Lymphocytes Absolute Auto 1.4 X10*3/uL (1.2-4.9); Mean Corpuscular HGB Conc 32.7 g/dl (31.0-35.0); Mean Corpuscular Hemoglobin 30.9 pg (27.0-33.0); Mean Corpuscular Volume 94.3 fL (80.0-98.0); Mean Platelet Volume 10.6 fL (9.4-12.3); Monocytes Absolute Auto 0.9 X10*3/uL (0.1-1.2); Monocytes Percent Auto 11.7 % (2-11); Neutrophils Absolute Auto 4.6 x10*3/uL (2.0-8.3); Neutrophils Percent Auto 60.4 % (45-73); Platelet Count 267 X10*3/uL (160-400); Red Blood Count 3.53 X10*6/uL (4.20-5.50); Red Cell Distribution Width 15.3 % (11.0-16.0); White Blood Count 7.5 X10*3/uL (4.8-10.8)
[2022-08-30 13:32] LABS: B Type Natriuretic Peptide 475 pg/mL (<100)
[2022-08-30 13:43] LABS: Alanine Aminotransferase 36 U/L (0-31); Alkaline Phosphatase 80 U/L (39-117); Anion Gap 13 (12-20); Aspartate Amino Transferase 33 U/L (5-31); Bilirubin Total 0.6 mg/dL (0.0-1.0); Blood Urea Nitrogen 39 mg/dL (9-16); Calcium 9.2 mg/dL (8.4-10.2); Carbon Dioxide 31 mmol/L (22-29); Chloride 101 mmol/L (96-108); Estimated Glomerular Filt Rate 38; Glucose Random 189 mg/dL (60-115); Potassium 4.4 mmol/L (3.3-5.1); Sodium 141 mmol/L (135-145); Total Protein 6.5 g/dL (6.5-8.0)
[2022-08-30 13:58] LABS: Free T4 (Free Thyroxine) 1.72 ng/dL (0.71-1.85); Thyroid Stimulating Hormone 2.68 uIU/mL (0.32-4.0)
[2022-08-30 15:13] LABS: Creatinine Urine 32.51 mg/dL
== END 2022-08-30 12:01 | disposition home or self-care (01) ==
LOC: HO.LAB 12:00
PROVIDERS: PCP Internal Medicine; Visit Provider Internal Medicine
DX: E11.65 Type 2 diabetes mellitus with hyperglycemia (principal); I50.32 Chronic diastolic (congestive) heart failure; Z79.4 Long term (current) use of insulin
CPT/HCPCS: 36415; 80053; 83880; 84439; 84443; 85025

== ENCOUNTER 2022-09-01 10:43 | Outpatient (REF) | payer MEDICARE, SELFPAY ==
--- NOTE | ~2022-09-01 | XR_ITS ---
EXAMINATION: XR HIP, LEFT CLINICAL INFORMATION: Left hip pain. COMPARISON: 03/25/2021. TECHNIQUE: 2 views of the left hip. FINDINGS: Patient status post left hip arthroplasty. The femoral and acetabular components appear in good position. No acute fracture or dislocation is evident. Hardware appears intact. There are prominent vascular calcifications present. XR/XR hip LT min 2V IMPRESSION: Stable appearance status post left hip arthroplasty without evidence of acute fracture or hardware failure.
== END 2022-09-01 10:44 | disposition home or self-care (01) ==
LOC: HO.XRAY 10:43
PROVIDERS: PCP Internal Medicine; Visit Provider Internal Medicine
DX: M25.552 Pain in left hip (principal)
CPT/HCPCS: 73502

== ENCOUNTER 2022-09-14 12:10 | Outpatient (REF) | payer MEDICARE, SELFPAY ==
--- NOTE | ~2022-09-14 | XR_ITS ---
EXAMINATION: Pelvis and sacroiliac joint x-rays CLINICAL INFORMATION: Left hip pain COMPARISON: Previous left hip x-ray most recent August 2022 TECHNIQUE: One view of the pelvis and 3 views of the sacroiliac joints FINDINGS: Pelvis: There is a left hip replacement that is only partially visualized. The inferior stem of the prosthesis is not included in [id number]. No fracture, dislocation or x-ray evidence of loosening is seen. Mild arthritis at the right hip joint. Bones of the pelvis are normal. 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 There are degenerative changes of the lower lumbar spine. There is atherosclerotic disease. XR/XR sacroiliac joint min 3V IMPRESSION: Stable appearance of left hip replacement. Mild arthritis of the right hip joint. Mild arthritis at both sacroiliac joints. Degenerative changes of the lower lumbar spine.
--- NOTE | ~2022-09-14 | XR_ITS ---
EXAMINATION: XR CHEST CLINICAL INFORMATION: Pneumonia COMPARISON: Previous chest x-ray August 2021 TECHNIQUE: 2 views of the chest were obtained. FINDINGS: The cardiac and mediastinal contours are stable. There is question of bronchial wall thickening or small infiltrate at the right cardiophrenic angle, probably the right lower lobe. There is subsegmental atelectasis at the left lung base. No pleural effusion or pneumothorax. Degenerative changes of the spine. XR/XR chest 2V IMPRESSION: Question bronchial wall thickening or small infiltrate at the right lung base. Subsegmental atelectasis at left lung base..
--- NOTE | ~2022-09-14 | XR_ITS ---
EXAMINATION: Pelvis and sacroiliac joint x-rays CLINICAL INFORMATION: Left hip pain COMPARISON: Previous left hip x-ray most recent August 2022 TECHNIQUE: One view of the pelvis and 3 views of the sacroiliac joints FINDINGS: Pelvis: There is a left hip replacement that is only partially visualized. The inferior stem of the prosthesis is not included in [id number]. No fracture, dislocation or x-ray evidence of loosening is seen. Mild arthritis at the right hip joint. Bones of the pelvis are normal. 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 There are degenerative changes of the lower lumbar spine. There is atherosclerotic disease. XR/XR pelvis 1-2V IMPRESSION: Stable appearance of left hip replacement. Mild arthritis of the right hip joint. Mild arthritis at both sacroiliac joints. Degenerative changes of the lower lumbar spine.
== END 2022-09-14 12:11 | disposition home or self-care (01) ==
LOC: HO.XRAY 12:10
PROVIDERS: PCP Internal Medicine; Visit Provider Internal Medicine
DX: M25.552 Pain in left hip (principal); J18.9 Pneumonia, unspecified organism; I48.91 Unspecified atrial fibrillation
CPT/HCPCS: 71046; 72170; 72202; 93005

== ENCOUNTER 2022-10-06 07:23 | Outpatient (REF) | payer MEDICARE, SELFPAY | END 2022-10-06 07:24 | disposition home or self-care (01) | LOC: HO.CT 07:23 | PROVIDERS: Visit Provider Internal Medicine | DX: R06.02 Shortness of breath (principal) | CPT/HCPCS: 71250 ==

== ENCOUNTER → 2022-10-11 12:53 | Outpatient (BNVA) | payer MEDICARE, SELFPAY | PROVIDERS: PCP Internal Medicine; Visit Provider Internal Medicine | DX: I11.0 Hypertensive heart disease with heart failure (principal); I50.32 Chronic diastolic (congestive) heart failure; I25.10 Atherosclerotic heart disease of native coronary artery without angina pectoris; I48.0 Paroxysmal atrial fibrillation; E78.5 Hyperlipidemia, unspecified | CPT/HCPCS: 93005; 99212 ==

== ENCOUNTER 2022-10-13 20:35 | Emergency (ER) | payer MEDICARE, SELFPAY ==
[2022-10-13 20:43] VITALS: BP 182/89; PULSE 98; RESP 14; TEMP 37.2; O2SAT 98; BMI 29.1
--- NOTE | 2022-10-13 21:48 | ED.FALL ---
HPI - Fall General Chief Complaint: Fall Stated Complaint: Fall/head strike/on blood thinners Time Seen by Provider: 10/13/22 21:02 Source: patient and family (Daughter) Mode of arrival: ambulatory History of Present Illness HPI Narrative: 87-year-old female who is on Xarelto for atrial fibrillation is brought in by her daughter after she was at the sink washing dishes and turned around and states that she felt dizzy and fell backwards striking her head on the counter but denies any loss of consciousness. At this time she is complaining of left lateral malleolus pain as well as a small amount of pain at the superior occiput. She otherwise denies any shortness of breath or chest pain/palpitations. Related Data Home Medications Medication Instructions Recorded Confirmed travoprost 0.004 % eye drops 1 drp ophthalmic (eye) BEDTIME 06/01/20 10/11/22 omeprazole 20 mg capsule,delayed 20 mg PO DAILY@0630 03/01/21 10/11/22 release acetaminophen 500 mg tablet 1,000 mg PO TID 08/17/21 10/11/22 glycerin (adult) 1 supp [place] DAILY PRN Constipation 08/17/21 10/11/22 furosemide 40 mg tablet 40 mg PO .once or twice a day 10/11/22 10/11/22 Previous Rx's Medication Instructions Recorded flash glucose sensor (FreeStyle #1 ea 08/28/20 Madeline 14 Day Sensor kit) lactulose 10 gram/15 mL oral 30 ml PO DAILY PRN constipation 10/20/21 solution #946 mL pen needle, diabetic 32 gauge x #4 boxes 10/24/21 (BD Eveline 2nd Gen Pen Needle) insulin glargine U-300 conc 300 12 unit (0.04 mL) subcut QAM #4.5 01/09/22 unit/mL (1.5 mL) subcutaneous pen mL (Toujeo SoloStar U-300 Insulin) hydralazine 10 mg tablet 10 mg PO ONCE PRN for blood 01/18/22 pressure #90 tabs insulin lispro 100 unit/mL See Rx Instructions subcut TIDAC 02/01/22 subcutaneous pen (Humalog KwikPen #15 mL (U-100) Insulin) amiodarone 200 mg tablet 200 mg PO DAILY 90 days #90 tabs 05/24/22 rivaroxaban 15 mg tablet (Xarelto) 15 mg PO DAILY@1700 90 days #90 06/09/22 tabs flash glucose scanning reader #1 ea 06/11/22 (FreeStyle Madeline 2 Carlos) flash glucose sensor (FreeStyle #1 ea 06/11/22 Madeline 2 Sensor kit) cefdinir 300 mg capsule 300 mg PO BID #14 caps 07/17/22 metoprolol succinate 100 mg 100 mg PO DAILY 90 days #90 tabs 08/09/22 tablet,extended release 24 hr simvastatin 10 mg tablet 10 mg PO BEDTIME #90 tabs 08/28/22 albuterol sulfate 90 mcg/actuation 2 puff inhalation Q6H PRN 09/14/22 aerosol inhaler (Ventolin HFA) shortness of breath or wheezing #8.5 grams doxycycline hyclate 100 mg capsule 100 mg PO BID #20 caps 09/14/22 levothyroxine 125 mcg tablet 125 mcg PO DAILY #90 tabs 10/09/22 Allergies Allergy/AdvReac Type Severity Reaction Status Date / Time codeine Allergy Intermediate TACHYCARDIA Verified 10/13/22 21:00 nitrofurantoin [Macrobid] Allergy Unknown confusion Verified 10/13/22 21:00 pravastatin Allergy Unknown Unknown Verified 10/13/22 21:00 rosuvastatin [Crestor] Allergy Unknown Unknown Verified 10/13/22 21:00 Sulfa (Sulfonamide Allergy Unknown unknown Verified 10/13/22 21:00 Antibiotics) sulfamethoxazole Allergy Unknown Unknown Verified 10/13/22 21:00 [From Bactrim] trimethoprim [From Bactrim] Allergy Unknown Unknown Verified 10/13/22 21:00 amlodipine AdvReac Intermediate leg Verified 10/13/22 21:00 swelling Review of Systems Review of Systems: Pertinent positives and negatives as stated in [facility] Past Medical History Source: nursing notes reviewed Medical History Abdominal mass, LUQ (left upper quadrant) Acute hyponatremia Atherosclerotic cardiovascular disease Atrial fibrillation Atrial fibrillation with rapid ventricular response 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 Breast asymmetry Chronic heart failure with preserved ejection fraction (HFpEF) Cognitive dysfunction COVID-19 Degenerative disc disease, lumbar Disc degeneration, lumbar Essential hypertension Herpes zoster Hyperkalemia Hypothyroid Iliotibial band syndrome of left side Iliotibial band syndrome of right side Left thigh pain Orthostatic hypotension Osteopenia Spinal stenosis of lumbar region Type 2 diabetes mellitus with hyperglycemia UTI (urinary tract infection) Weakness Surgical History History of appendectomy History of cataract surgery History of section History of cholecystectomy History of eye surgery History of hip replacement History of knee replacement History of removal of cyst Family History Family History Father CVD (cardiovascular disease) Mother CVD (cardiovascular disease) Stroke Social History Social History Household Members: None Household Members Other:: son comes 3 days a week, daughter lives 5 minutes away visits frequently Housing: House Do you presently have visiting nurse or other home services: Yes Alcohol intake: never Patient Tobacco Use Status: Former Tobacco user Tobacco use type: Cigarette Years Smoked: <1 Smoked in Last 30 Days: No e-Cigarette/Vaping Use: Former Use Second Hand Smoke Exposure: No Use of substances other than those prescribed or required for medical reasons: No Advance Directives: Yes Advance Directives on File: Yes Advance Directives Date on File: 08/29/21 service: No Current occupational status: retired Cognitive needs: Yes (Walker) Hearing needs: No Vision needs: Yes Physical Exam Vital Signs: Vital Signs: Last Vital Signs Temp 99.0 F 10/13/22 20:43 Pulse 97 10/13/22 22:27 Resp 12 10/13/22 22:27 BP 154/80 H 10/13/22 22:27 Pulse Ox 97 10/13/22 22:27 O2 Del Method Room Air 10/13/22 20:43 BMI result Body Mass Index 29.1 VITAL SIGNS: Reviewed. GENERAL: Well developed, well nourished, in no acute distress. HEAD: Normocephalic/atraumatic EYES: PERRLA, EOMI EARS: Ext canals without abnormality NOSE: Nares patent bilateral OROPHARYNX: no oral lesions noted, posterior pharynx clear NECK: Supple, no adenopathy LUNGS: Normal breath sounds. No adventitious sounds or accessory muscle use. SpO2<98>; CHEST WALL: No obvious deformity, tenderness to palpation or crepitus. CARDIOVASCULAR: Regular rate and rhythm without noted murmurs, no JVD or lower extremity edema. ABDOMEN: Soft, non-tender, non-distended with bowel sounds. PELVIS: Stable, nontender MUSCULOSKELETAL: No tenderness, deformities, or effusions noted on gross inspection. EXTREMITIES: No cyanosis, clubbing or edema. LEFT KNEE: No obvious deformity, no effusion/erythema/induration, there is mild tenderness to palpation along the lateral aspect of the knee without noted crepitus LEFT ANKLE: There is mild swelling over the lateral malleolus with tenderness to palpation, there is no tenderness to palpation over the medial malleolus/midfoot. SKIN: Inspection of the skin reveals no rashes NEUROLOGIC: Alert and oriented x 4. Strength and sensation to light touch were grossly intact x 4. Medical Decision Making Medical Decision Making [facility] Narrative: 215: 87-year-old female with history and clinical presentation, DDX: Mechanical fall, arrhythmia, intracranial hemorrhage, left fibular fracture, left ankle sprain, infection, electrolyte abnormality. I reviewed all investigations, hematologic indices are chronically stable, chemistries are chronically stable with hyperglycemia and no evidence of DKA or HHS, EKG demonstrates baseline arrhythmia of atrial fibrillation without RVR, CT scan negative for intracranial head bleed, but x-ray positive for distal fibular fracture. Differential Diagnosis Please see the discussion above Admission/Observation Consideration of admission/observation: Escalation of care including admission/observation considered Lab Data Please see the discussion above 10/13/22 21:32 10/13/22 21:32 Labs: Lab Results 10/13/22 10/13/22 10/13/22 Range/Units 21:32 21:32 21:32 WBC 5.4 (4.8-10.8) X10*3/uL RBC 3.64 L (4.20-5.50) X10*6/uL Hgb 10.8 L (12.0-16.0) g/dl Hct 33.9 L (37.0-47.0) % MCV 93.1 (80.0-98.0) fL MCH 29.7 (27.0-33.0) pg MCHC 31.9 (31.0-35.0) g/dl RDW 15.1 (11.0-16.0) % Plt Count 283 (160-400) X10*3/uL MPV 9.9 (9.4-12.3) fL Immature Gran % (Auto) 0.4 (0.0-0.4) % Neut % (Auto) 51.8 (45-73) % Lymph % (Auto) 21.3 (20-40) % Newberry % (Auto) 16.1 H (2-11) % Eos % (Auto) 9.1 H (0-4) % Baso % (Auto) 1.3 (0-2) % Lymph # (Auto) 1.2 (1.2-4.9) X10*3/uL Newberry # (Auto) 0.9 (0.1-1.2) X10*3/uL Eos # (Auto) 0.5 H (0.0-0.4) X10*3/uL Baso # (Auto) 0.1 (0.0-0.2) X10*3/uL Abs Immat Gran (auto) 0.02 (0.00-0.03) X10*3/uL Absolute Neuts (auto) 2.8 (2.0-8.3) x10*3/uL Absolute Nucleated RBC 0.000 (0.0-0.012) X10*3/uL Nucleated RBC % (auto) 0.0 (0.0-0.2) /100WBC Sodium 138 (135-145) mmol/L Potassium 3.9 (3.3-5.1) mmol/L Chloride 102 (96-108) mmol/L Carbon Dioxide 26 (22-29) mmol/L Anion Gap 14 (12-20) BUN 31 H (9-16) mg/dL Creatinine 1.28 (0.5-1.4) mg/dL Estim Creat Clear Calc 25.9 Estimated GFR 40 Random Glucose 318 H (60-115) mg/dL Calcium 9.1 (8.4-10.2) mg/dL Total Bilirubin 0.3 (0.0-1.0) mg/dL Direct Bilirubin 0.1 (0.0-0.5) mg/dL AST 19 (5-31) U/L ALT 21 (0-31) U/L Alkaline Phosphatase 100 (39-117) U/L Troponin I High Sens 6.1 (<3.5-17.0) ng/L Total Protein 6.5 (6.5-8.0) g/dL Albumin 3.9 (3.5-5.0) g/dL Lipase 22 (8-78) U/L Independent Interpretation I performed an independent interpretation of an: EKG Interpretation: Atrial fibrillation, HR-93, no STEMI, QRS/QTC are mildly prolonged. Radiology Impression Radiologist Impression: No intracranial bleeding, but there is a noted left lateral malleolus fracture, otherwise my interpretation is in agreement with radiology's impression. External Record Review External record reviewed: Outpatient record and Prior outpatient labs Chronic Conditions Patient?s care impacted by: Diabetes and Hypertension Discharge Plan Discharge Clinical Impression: Fall, Closed left fibular fracture Patient Disposition: Home, Self-Care Instructions: Leg Fracture (ED), Fall Prevention for Older Adults (ED) Additional Instructions: 1. Resume all home medications as prescribed. 2. Keep the walking boot in place, even while sleeping, follow-up with orthopedics by calling the office 1st thing next week to set up an appointment for re-evaluation. 3. Recommend [id number] Tylenol/ibuprofen as needed for pain control. Ice to unexposed skin for 5-10 minutes, 3 to 4 times a day. Return to the ER for any worsening symptoms. I have we recommend that you use your walker for ambulation while having the walking boot in place. Prescriptions: No Action (DME) FreeStyle Madeline 14 Day Sensor Kit See Rx Instructions .ROUTE .MEDSUPPLY Qty: 1 6RF Rx Instructions: Dx: E11.65 As directed, 14 days lactulose 10 gram/15 mL solution 30 ml PO DAILY PRN (Reason: constipation) Qty: 946 1RF (DME) pen needle, diabetic [BD Eveline 2nd Gen Pen Needle] 32 gauge x 5/32 needle See Rx Instructions .Route Qty: 4 3RF Rx Instructions: As directed Inject Insulin 4x a day Toujeo SoloStar U-300 Insulin 300 unit/mL (1.5 mL) insulin pen 12 unit subcut QAM Qty: 4.5 3RF Rx Instructions: or as directed hydralazine 10 mg tablet 10 mg PO ONCE PRN (Reason: for blood pressure) Qty: 90 2RF insulin lispro [Humalog KwikPen Insulin] 100 unit/mL insulin pen See Rx Instructions subcut TIDAC Qty: 15 12RF Protocol: Insulin Correction Scale Less than or equal to 110 ---- Give (units): 0 111 to 150 Give (units): 0 151 to 200 Give (units): 2 201 to 250 Give (units): 4 251 to 300 Give (units): 6 301 to 350 Give (units): 8 Greater than 350 Give (units): 10 Call MD if Blood Glucose > : 350 Rx Instructions: 6 units subcutaneously 3 times a day before meals; or as directed according to sliding scale amiodarone 200 mg tablet 200 mg PO DAILY 90 Days Qty: 90 3RF Xarelto 15 mg tablet 15 mg PO DAILY@1700 90 Days Qty: 90 3RF Rx Instructions: must administer with evening meal (DME) FreeStyle Madeline 2 Carlos Misc See Rx Instructions .Route Qty: 1 1RF Rx Instructions: Dx: E11.65 - Use as directed (DME) FreeStyle Madeline 2 Sensor Kit See Rx Instructions .Route Qty: 1 1RF Rx Instructions: Dx: E11.65 - Use as directed cefdinir 300 mg capsule 300 mg PO BID Qty: 14 0RF metoprolol succinate 100 mg tablet extended release 24 hr 100 mg PO DAILY 90 Days Qty: 90 3RF simvastatin 10 mg tablet 10 mg PO BEDTIME Qty: 90 3RF levothyroxine 125 mcg tablet 125 mcg PO DAILY Qty: 90 3RF travoprost 0.004 % drops 1 drp ophthalmic (eye) BEDTIME omeprazole 20 mg capsule,delayed release(DR/EC) 20 mg PO DAILY@0630 acetaminophen 500 mg Tablet 1,000 mg PO TID glycerin (adult) Suppository 1 supp [place] DAILY PRN (Reason: Constipation) doxycycline hyclate 100 mg capsule 100 mg PO BID Qty: 20 0RF albuterol sulfate [Ventolin HFA] 90 mcg/actuation HFA aerosol inhaler 2 puff inhalation Q6H PRN (Reason: shortness of breath or wheezing) Qty: 8.5 0RF furosemide 40 mg tablet 40 mg PO .once or twice a day Referrals: Po,Monique Wesley MD [Primary Care Provider] - Varghese Diop MD [Physician] - (Left lateral malleolus fracture, in walking boot)
[2022-10-13 22:27] VITALS: BP 154/80; PULSE 97; RESP 12; O2SAT 97
--- NOTE | 2022-10-13 23:26 | PC.NURSE ---
Walking boot applied to left foot. Pt tolerated well.
== END 2022-10-13 23:28 | disposition home or self-care (01) ==
PROVIDERS: Emergency Provider Student in an Organized Health Care Education/Training Program; PCP Internal Medicine
DX: S82.402A Unspecified fracture of shaft of left fibula, initial encounter for closed fracture (principal); I48.91 Unspecified atrial fibrillation; M54.2 Cervicalgia; M25.562 Pain in left knee; R51.9 Headache, unspecified; M25.572 Pain in left ankle and joints of left foot; X58.XXXA Exposure to other specified factors, initial encounter; Y93.9 Activity, unspecified; Y92.9 Unspecified place or not applicable; Y99.9 Unspecified external cause status; Z79.01 Long term (current) use of anticoagulants; Z79.899 Other long term (current) drug therapy
CPT/HCPCS: 36415; 70450; 73564; 73610; 80053; 82248; 83690; 84484; 85025; 93005; 99284; 99285

== ENCOUNTER 2022-10-23 10:21 | Outpatient (AMB) | payer MEDICARE, SELFPAY ==
--- NOTE | 2022-10-23 10:29 | MHC.OFFVIS ---
Intake Vital Signs 10/23/22 10:32 Height 4 ft 11 in Weight 144 lb BMI 29.1 Intake Visit Reasons: FC-LT distal fibular fracture-New prob Intake Note: Gerri is a 87 year old female who presents today for a fracture care appointment for her left distal fibular fx, DOI 10/13/22. Patient states when she was at the sink washing dishes she turned around and states that she felt dizzy and fell backwards striking her head and hitting her left side. She states some pain on the top of her left foot and sumner. Denies numbness and tingling. Denies having pain when applying full weight. Allergies codeine Allergy (Intermediate, Verified 10/13/22 21:00) TACHYCARDIA nitrofurantoin [Macrobid] Allergy (Unknown, Verified 10/13/22 21:00) confusion pravastatin Allergy (Unknown, Verified 10/13/22 21:00) Unknown rosuvastatin [Crestor] Allergy (Unknown, Verified 10/13/22 21:00) Unknown Sulfa (Sulfonamide Antibiotics) Allergy (Unknown, Verified 10/13/22 21:00) unknown sulfamethoxazole [From Bactrim] Allergy (Unknown, Verified 10/13/22 21:00) Unknown trimethoprim [From Bactrim] Allergy (Unknown, Verified 10/13/22 21:00) Unknown amlodipine Adverse Reaction (Intermediate, Verified 10/13/22 21:00) leg swelling HPI FC-LT distal fibular fracture-New prob HPI Details 87-year-old female who presents to the office today for an FC follow-up of left distal fibular fracture, s/p feeling dizzy while washing dishes at the sink and sustaining a backward fall, hitting her head and left side on 10/13/22. She states she has pain in the anterior aspect of her foot and sumner. She denies any numbness, tingling or pain with applying full weight on her ankle. 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 Breast asymmetry Chronic heart failure with preserved ejection fraction (HFpEF) Cognitive dysfunction COVID-19 Degenerative disc disease, lumbar Disc degeneration, lumbar Essential hypertension Herpes zoster Hyperkalemia Hypothyroid Iliotibial band syndrome of left side Iliotibial band syndrome of right side Left thigh pain Orthostatic hypotension Osteopenia Spinal stenosis of lumbar region Type 2 diabetes mellitus with hyperglycemia UTI (urinary tract infection) Weakness Surgical History History of appendectomy History of cataract surgery History of section History of cholecystectomy History of eye surgery History of hip replacement History of knee replacement History of removal of cyst Family History Father CVD (cardiovascular disease) Mother CVD (cardiovascular disease) Stroke Social History Household Members: None Household Members Other:: son comes 3 days a week, daughter lives 5 minutes away visits frequently Housing: House Do you presently have visiting nurse or other home services: Yes Alcohol intake: never Patient Tobacco Use Status: Former Tobacco user Tobacco use type: Cigarette Years Smoked: <1 e-Cigarette/Vaping Use: Former Use Second Hand Smoke Exposure: No Advance Directives Date on File: 08/29/21 service: No Current occupational status: retired Cognitive needs: Yes (Walker) Hearing needs: No Vision needs: Yes Review of Systems Const All systems reviewed & are unremarkable except as noted in HPI and below Physical Exam Vital Signs: BMI result Body Mass Index 29.1 Const General: cooperative and no acute distress Orientation/consciousness: patient oriented x3 Resp Effort & Inspection: normal respiratory effort and able to speak in complete sentences Cardio Peripheral pulses: Peripheral pulses 2+ throughout Neuro General: patient oriented x3 Extrem Other: Left ankle normal to inspection with diffuse swelling over the medial and lateral malleolus with tenderness along the soft tissues. Mild discomfort along the posterior aspect of the ankle, no deformity along the Achilles tendon, negative Duarte?s. No pain along the syndesmosis or anterior tibia. No laxity, NVI. Office Procedures Fracture Care Fracture Billing Code: Fracture Billing Code Results Reviewed Results Reviewed: Xrays were obtained in the office today and personally reviewed by me of the left ankle show non displaced distal fibular fracture, ankle mortise intact. Assessment & Plan Assessment & Plan (1) Fracture of distal end of left fibula: Code(s): S82.832A - Other fracture of upper and lower end of left fibula, initial encounter for closed fracture Plan She will remain in her boot weight bearing as tolerated and can remove it for hygiene, elevating and icing. I did explain that this could take about 6 weeks for good bone healing and an additional 6 weeks for physical therapy to work on ROM and strengthening. She is content with this plan and will see us back in 4 weeks with new x-rays, sooner if needed. Orders: Orders XR ankle LT min 3V Today M25.572 - Pain in left ankle and joints of left foot Patient Instructions: Scribed for Elizabeth Mcknight PA-C, by Pedro Amaro medical lab assistant, on 10/23/2022 at 10:30 AM LILLIAN. Elizabeth Rivero PA-C, have personally reviewed and agree with the information entered by the scribe. Coding Level of Care Code Est Pt Level 3 (41705) Diagnoses Fracture of distal end of left fibula S82.832A CPT Codes Fracture Care - Fracture Billing Code: Fracture Billing Code ([id number])
[2022-10-23 10:32] VITALS: BMI 29.1
== END 2022-10-23 10:58 | disposition home or self-care (01) ==
PROVIDERS: PCP Internal Medicine; Visit Provider Physician Assistant
DX: S82.832D Other fracture of upper and lower end of left fibula, subsequent encounter for closed fracture with routine healing (principal)
CPT/HCPCS: 99213

== ENCOUNTER 2022-10-23 12:02 | Outpatient (REF) | payer MEDICARE, SELFPAY ==
--- NOTE | ~2022-10-23 | XR_ITS ---
EXAMINATION: XR ANKLE, LEFT CLINICAL INFORMATION: Pain left ankle and joints of left foot. COMPARISON: 10/13/2022 TECHNIQUE: AP, lateral, and mortise views of the left ankle. FINDINGS: The nondisplaced hairline fracture in the distal fibula is much less conspicuous on the current exam. There is some persistent soft tissue swelling along the lateral malleolus. The ankle mortise is intact. The bones are demineralized. There is no joint effusion. Extensive vascular calcifications. Small plantar calcaneal spur XR/XR ankle LT min 3V IMPRESSION: The nondisplaced hairline fracture in the distal fibula is much less conspicuous on the current exam. There is persistent soft tissue swelling along the lateral malleolus.
== END 2022-10-23 12:03 | disposition home or self-care (01) ==
LOC: HO.HOSX 12:02
PROVIDERS: Visit Provider Physician Assistant
DX: S82.832A Other fracture of upper and lower end of left fibula, initial encounter for closed fracture (principal)
CPT/HCPCS: 73610; 99212

== ENCOUNTER → 2022-10-26 10:26 | Outpatient (REF) | payer MEDICARE, SELFPAY ==
--- NOTE | 2022-10-26 10:36 | HM_ITS ---
* Total monitoring time 3 days. * Underlying rhythm is atrial fibrillation. [place] 100%. * Average ventricular rate 85/Min. Range 60 to 105/Min. * No significant pauses or AV blocks. * Rare PVCs. * No patient markers or events in diary. MTDD
[2022-10-26 14:15] LABS: Estimated Average Glucose 220 mg/dL; Hemoglobin A1c % 9.3 %
[2022-10-26 14:40] LABS: Alanine Aminotransferase 17 U/L (0-31); Anion Gap 12 (12-20); Aspartate Amino Transferase 17 U/L (5-31); Blood Urea Nitrogen 24 mg/dL (9-16); Calcium 9.3 mg/dL (8.4-10.2); Carbon Dioxide 30 mmol/L (22-29); Chloride 98 mmol/L (96-108); Estimated Glomerular Filt Rate 40; Glucose Random 378 mg/dL (60-115); Potassium 4.2 mmol/L (3.3-5.1); Sodium 136 mmol/L (135-145); TSH reflex Free T4 1.29 uIU/mL (0.32-4.0)
== END ==
LOC: HO.CARD 10:26
PROVIDERS: Absent Provider Physician Assistant; PCP Internal Medicine; Visit Provider Internal Medicine
DX: I48.0 Paroxysmal atrial fibrillation (principal); E10.319 Type 1 diabetes mellitus with unspecified diabetic retinopathy without macular edema; E03.9 Hypothyroidism, unspecified
CPT/HCPCS: 36415; 80048; 83036; 84443; 84450; 84460; 93242

== ENCOUNTER → 2022-10-26 10:36 | Outpatient (BNV) | payer MEDICARE, SELFPAY | PROVIDERS: Absent Provider Physician Assistant; PCP Internal Medicine; Visit Provider Internal Medicine | DX: I48.91 Unspecified atrial fibrillation (principal) | CPT/HCPCS: 93244 ==

== ENCOUNTER 2022-11-17 16:56 | Outpatient (REF) | payer MEDICARE, SELFPAY ==
[2022-11-17 17:14] LABS: MANUAL DIFF FLAG NO
[2022-11-17 19:11] LABS: Basophils Absolute Auto 0.1 X10*3/uL (0.0-0.2); Basophils Percent Auto 1.3 % (0-2); Eosinophils Absolute Auto 0.6 X10*3/uL (0.0-0.4); Eosinophils Percent Auto 9.7 % (0-4); Hematocrit 32.2 % (37.0-47.0); Hemoglobin 10.5 g/dl (12.0-16.0); Imm Gran Abs Auto 0.02 X10*3/uL (0.00-0.03); Imm Gran Pct Auto 0.3 % (0.0-0.4); Immature Retic Fraction 9.5 % (3.0-15.9); Lymphocytes Absolute Auto 1.5 X10*3/uL (1.2-4.9); Lymphocytes Percent Auto 24.9 % (20-40); Mean Corpuscular HGB Conc 32.6 g/dl (31.0-35.0); Mean Corpuscular Hemoglobin 29.4 pg (27.0-33.0); Mean Corpuscular Volume 90.2 fL (80.0-98.0); Mean Platelet Volume 10.5 fL (9.4-12.3); Monocytes Absolute Auto 0.8 X10*3/uL (0.1-1.2); Monocytes Percent Auto 13.3 % (2-11); Neutrophils Absolute Auto 3.1 x10*3/uL (2.0-8.3); Neutrophils Percent Auto 50.5 % (45-73); Platelet Count 229 X10*3/uL (160-400); Red Blood Count 3.57 X10*6/uL (4.20-5.50); Retic HGB Equivalent 32.5 pg (30.0-35.0); Reticulocyte Percent 1.1 % (0.5-1.8); Reticulocytes Absolute 0.039 X10*6/uL (0.026-0.095); White Blood Count 6.2 X10*3/uL (4.8-10.8)
[2022-11-17 19:34] LABS: Alanine Aminotransferase 29 U/L (0-31); Alkaline Phosphatase 108 U/L (39-117); Anion Gap 15 (12-20); Aspartate Amino Transferase 20 U/L (5-31); Bilirubin Total 0.4 mg/dL (0.0-1.0); Blood Urea Nitrogen 28 mg/dL (9-16); Calcium 8.7 mg/dL (8.4-10.2); Carbon Dioxide 29 mmol/L (22-29); Chloride 101 mmol/L (96-108); Estimated Glomerular Filt Rate 39; Glucose Random 229 mg/dL (60-115); Iron 28 mcg/dL (30-160); Percent Iron Saturation 10 % (15-50); Potassium 3.9 mmol/L (3.3-5.1); Sodium 141 mmol/L (135-145); Total Iron Binding Capacity 276 mcg/dL (228-428); Total Protein 6.7 g/dL (6.5-8.0); Unsaturated Iron Binding 248 ug/dL
[2022-11-17 19:39] LABS: B Type Natriuretic Peptide 531 pg/mL (<100)
[2022-11-17 19:48] LABS: Free T4 (Free Thyroxine) 1.37 ng/dL (0.71-1.85); Thyroid Stimulating Hormone 0.96 uIU/mL (0.32-4.0)
== END 2022-11-17 16:57 | disposition home or self-care (01) ==
LOC: HO.LAB 16:56
PROVIDERS: PCP Internal Medicine; Visit Provider Internal Medicine
DX: I25.10 Atherosclerotic heart disease of native coronary artery without angina pectoris (principal); I48.91 Unspecified atrial fibrillation; E03.9 Hypothyroidism, unspecified; D64.9 Anemia, unspecified
CPT/HCPCS: 36415; 80053; 83540; 83880; 84439; 84443; 85025; 85045

== ENCOUNTER 2022-11-20 10:49 | Outpatient (AMB) | payer MEDICARE, SELFPAY ==
--- NOTE | 2022-11-20 10:53 | A.OFFPC_ITS ---
Vital Signs 11/20/22 10:54 Height 4 ft 11 in Weight 136 lb BMI 27.5 BP 134/80 Blood Pressure Location Lt brachial Position Sitting Pulse 86 Pulse Source Pulse Oximeter Temp Source Skin Pulse Oximetry (%) 99 Oxygen Delivery Method Room Air Intake Visit Reasons: 3mth f/u Plaster Block Layer Required: No Allergies codeine Allergy (Intermediate, Verified 11/20/22 10:54) TACHYCARDIA nitrofurantoin [Macrobid] Allergy (Unknown, Verified 11/20/22 10:54) confusion pravastatin Allergy (Unknown, Verified 11/20/22 10:54) Unknown rosuvastatin [Crestor] Allergy (Unknown, Verified 11/20/22 10:54) Unknown Sulfa (Sulfonamide Antibiotics) Allergy (Unknown, Verified 11/20/22 10:54) unknown sulfamethoxazole [From Bactrim] Allergy (Unknown, Verified 11/20/22 10:54) Unknown trimethoprim [From Bactrim] Allergy (Unknown, Verified 11/20/22 10:54) Unknown amlodipine Adverse Reaction (Intermediate, Verified 11/20/22 10:54) leg swelling Tobacco use date assessed: 11/20/22 Fall risk assessment: 1 Fall in past year Last assessed Fall Risk: 11/20/22 Dental Screening Dental Screen Date: 11/20/22 Did you have a dental visit in the last 12 months?: Yes Did you have a dental problem in the last 6 months where you did not have access to dental care?: No Was dental information given to patient?: Patient has dentist HPI 3mth f/u HPI Details 87-year-old with multiple medical problem brittle diabetes mellitus follows up with endocrinology atrial fibrillation congestive heart failure coronary artery disease last seen in September 2022 had pneumonia and a repeat chest x-ray done has his left hip pain and x-rays were done patient is here for follow-up. Patient had a Holter done underlying says rhythm is atrial fibrillation average ventricular rate is 85 no pauses. Patient had an x-ray of left ankle showing a nondisplaced hairline fracture of the distal fibula left 10/13/2022 felt dizzy and fell backwards striking her head. Patient was placed on a boot. 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 Breast asymmetry Chronic heart failure with preserved ejection fraction (HFpEF) Cognitive dysfunction COVID-19 Degenerative disc disease, lumbar Disc degeneration, lumbar Essential hypertension Herpes zoster Hyperkalemia Hypothyroid Iliotibial band syndrome of left side Iliotibial band syndrome of right side Left thigh pain Orthostatic hypotension Osteopenia Spinal stenosis of lumbar region Type 2 diabetes mellitus with hyperglycemia UTI (urinary tract infection) Weakness Surgical History History of appendectomy History of cataract surgery History of section History of cholecystectomy History of eye surgery History of hip replacement History of knee replacement History of removal of cyst Family History Father CVD (cardiovascular disease) Mother CVD (cardiovascular disease) Stroke Social History Household Members: None Household Members Other:: son comes 3 days a week, daughter lives 5 minutes away visits frequently Housing: House Do you presently have visiting nurse or other home services: Yes Alcohol intake: never Patient Tobacco Use Status: Former Tobacco user Tobacco use type: Cigarette Years Smoked: <1 e-Cigarette/Vaping Use: Former Use Second Hand Smoke Exposure: No Advance Directives Date on File: 08/29/21 service: No Current occupational status: retired Cognitive needs: Yes (Walker) Hearing needs: No Vision needs: Yes Questionnaire Thrive Questionnaire Date Thrive assessed: 09/12/22 AUDIT C Alcohol Use Questionnaire (AUDIT-C) 1. How often do you have a drink containing alcohol?: Never 3. How often do you have six or more drinks on one occasion?: Never Total Score: 0 DILIP-7 AMB Questionnaire DILIP-7 Date DILIP - 7 assessed: 09/12/22 Source: Developed by Drs. Akbar Rocha, Theodora Huddleston, Woo Garcia and colleagues, with an educational cesia from [employer]. Physical exam (Primary Care) Vital Signs: Last Vital Signs Pulse 86 11/20/22 10:54 BP 134/80 11/20/22 10:54 Pulse Ox 99 11/20/22 10:54 Oxygen Delivery Method Room Air 11/20/22 10:54 BMI result Body Mass Index 27.5 Tobacco/Smoking Status: Tobacco use Status Tobacco use date assessed 11/20/22 11/20/22 10:58 Patient Tobacco Use Status Former Tobacco user 11/20/22 10:54 Tobacco use type Cigarette 11/20/22 10:54 e-Cigarette/Vaping Use Former Use 11/20/22 10:54 Thrive Assessment: Date of Thrive Assessment Date Thrive assessed 09/12/22 11/20/22 10:54 Const General: alert; No acute distress Eyes Conjunctivae: conjunctivae normal Resp Auscultation: clear to auscultation bilaterally Cardio Rate: regular rate Rhythm: regular rhythm GI Inspection: Yes normal to inspection Extrem General: Yes normal to inspection and No edema Assessment and Plan Assessment & Plan (1) Iron deficiency anemia: Code(s): D50.9 - Iron deficiency anemia, unspecified Plan: Discussed about iron replacement (2) Fracture of distal end of left fibula: Comment: October 2022 Code(s): S82.832A - Other fracture of upper and lower end of left fibula, initial encounter for closed fracture Plan: Patient follows up with orthopedics and was placed on a boot (3) Chronic kidney disease, stage 3b: Code(s): N18.32 - Chronic kidney disease, stage 3b Plan: Keep well hydrated avoid NSAIDs continue with blood pressure control (4) Obstructive sleep apnea (adult) (pediatric): Comment: cannot tolerate CPAP 07/2020 Code(s): G47.33 - Obstructive sleep apnea (adult) (pediatric) (5) Essential hypertension: Code(s): I10 - Essential (primary) hypertension Plan: Continue with blood pressure medication. Decrease salt intake and exercise patient is on metoprolol 100 mg once a day hydralazine 10 mg twice a day (6) Atherosclerotic cardiovascular disease: Code(s): I25.10 - Atherosclerotic heart disease of [place] coronary artery without angina pectoris Plan: Control the cholesterol, weight, blood pressure, diabetes (7) Chronic heart failure with preserved ejection fraction (HFpEF): Code(s): I50.32 - Chronic diastolic (congestive) heart failure Plan: With daily continue with diuretic (8) Atrial fibrillation: Comment: Cardioversion May 2020 Code(s): I48.91 - Unspecified atrial fibrillation Qualifiers: Atrial fibrillation type: paroxysmal Qualified Code(s): I48.0 - Paroxysmal atrial fibrillation Plan: Continue with anticoagulation with Xarelto (9) Hypothyroid: Code(s): E03.9 - Hypothyroidism, unspecified Qualifiers: Hypothyroidism type: acquired Qualified Code(s): E03.9 - Hypothyroidism, unspecified Plan: Continue with thyroid medication (10) Type 2 diabetes mellitus with hyperglycemia: Comment: With retinopathy Code(s): E11.65 - Type 2 diabetes mellitus with hyperglycemia Qualifiers: 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 Continue to follow-up with endocrinology Orders: Orders PT Evaluation and Treatment Today S82.832A - Other fracture of upper and lower end of left fibula, initial encounter for closed fracture Vitamin B12 and Folate 3 Months D50.9 - Iron deficiency anemia, unspecified B Type Natriuretic Peptide 3 Months N18.32 - Chronic kidney disease, stage 3b Comprehensive Met. Panel 3 Months N18.32 - Chronic kidney disease, stage 3b Ferritin 3 Months D50.9 - Iron deficiency anemia, unspecified IRON PROFILE 3 Months D50.9 - Iron deficiency anemia, unspecified Complete Blood Count Auto Diff 3 Months D50.9 - Iron deficiency anemia, unspecified Reticulocyte Count 3 Months D50.9 - Iron deficiency anemia, unspecified Magnesium 3 Months N18.32 - Chronic kidney disease, stage 3b Phosphorus 3 Months N18.32 - Chronic kidney disease, stage 3b Coding Level of Care Code Est Pt Level 4 (41165) Diagnoses Iron deficiency anemia D50.9 Fracture of distal end of left fibula S82.832A Chronic kidney disease, stage 3b N18.32 Obstructive sleep apnea (adult) (pediatric) G47.33 Essential hypertension I10 Atherosclerotic cardiovascular disease I25.10 Chronic heart failure with preserved ejection fraction (HFpEF) I50.32 Atrial fibrillation I48.0 Atrial fibrillation type: paroxysmal Hypothyroid E03.9 Hypothyroidism type: acquired Type 2 diabetes mellitus with hyperglycemia E11.65; Z79.4 Diabetes mellitus penitentiary insulin use: with penitentiary use
[2022-11-20 10:54] VITALS: BP 134/80; PULSE 86; O2SAT 99; BMI 27.5
== END 2022-11-20 11:56 | disposition home or self-care (01) ==
PROVIDERS: Visit Provider Internal Medicine
DX: I13.0 Hypertensive heart and chronic kidney disease with heart failure and stage 1 through stage 4 chronic kidney disease, or unspecified chronic kidney disease (principal); I50.32 Chronic diastolic (congestive) heart failure; E03.9 Hypothyroidism, unspecified; N18.32 Chronic kidney disease, stage 3b; D50.9 Iron deficiency anemia, unspecified; S82.832A Other fracture of upper and lower end of left fibula, initial encounter for closed fracture; I48.0 Paroxysmal atrial fibrillation; G47.33 Obstructive sleep apnea (adult) (pediatric); I25.10 Atherosclerotic heart disease of native coronary artery without angina pectoris; E11.65 Type 2 diabetes mellitus with hyperglycemia; Z79.4 Long term (current) use of insulin
CPT/HCPCS: 99214

== ENCOUNTER 2022-11-20 12:11 | Outpatient (REF) | payer MEDICARE, SELFPAY ==
[2022-11-20 13:51] LABS: Leukocytes Stool Qualitative NEGATIVE (NEGATIVE)
[2022-11-20 14:04] LABS: CDiff Gene PCR NEGATIVE (Negative)
== END 2022-11-20 12:12 | disposition home or self-care (01) ==
LOC: HO.LNP 12:11
PROVIDERS: Visit Provider Internal Medicine
DX: R19.7 Diarrhea, unspecified (principal)
CPT/HCPCS: 87493; 89055

== ENCOUNTER 2022-11-23 06:38 | Outpatient (REF) | payer MEDICARE, SELFPAY ==
--- NOTE | ~2022-11-23 | XR_ITS ---
EXAMINATION: XR ANKLE, LEFT CLINICAL INFORMATION: Fracture COMPARISON: Previous x-ray most recent 10/23/2022 TECHNIQUE: AP, lateral, and mortise views of the left ankle. FINDINGS: The bones are osteopenic. Nondisplaced lateral malleolar fracture line still seen. No other fracture. Alignment unchanged Normal ankle mortise. Soft tissue arterial calcification. XR/XR ankle LT min 3V IMPRESSION: Stable nondisplaced left lateral malleolar fracture.
== END 2022-11-23 06:39 | disposition home or self-care (01) ==
LOC: HO.HOSX 06:38
PROVIDERS: Visit Provider Physician Assistant
DX: S82.832D Other fracture of upper and lower end of left fibula, subsequent encounter for closed fracture with routine healing (principal)
CPT/HCPCS: 73610; 99212

== ENCOUNTER 2022-11-23 14:11 | Outpatient (AMB) | payer MEDICARE, SELFPAY ==
--- NOTE | 2022-11-23 14:23 | A.OFFVIS_ITS ---
Intake Vital Signs 11/23/22 14:46 Height 4 ft 11 in Weight 136 lb BMI 27.5 Intake Visit Reasons: OV-f/u Left ankle fx-xrays Intake Note: Gerri an 87 year old female who presents today for a follow up visit of Fracture of distal end of left fibula 10/12/22. xrays updated in office. Patient reports she is doing well, she has discomfort with boot wear. She complains of left knee discomfort and is tender to touch. Allergies codeine Allergy (Intermediate, Verified 11/23/22 14:46) TACHYCARDIA nitrofurantoin [Macrobid] Allergy (Unknown, Verified 11/23/22 14:46) confusion pravastatin Allergy (Unknown, Verified 11/23/22 14:46) Unknown rosuvastatin [Crestor] Allergy (Unknown, Verified 11/23/22 14:46) Unknown Sulfa (Sulfonamide Antibiotics) Allergy (Unknown, Verified 11/23/22 14:46) unknown sulfamethoxazole [From Bactrim] Allergy (Unknown, Verified 11/23/22 14:46) Unknown trimethoprim [From Bactrim] Allergy (Unknown, Verified 11/23/22 14:46) Unknown amlodipine Adverse Reaction (Intermediate, Verified 11/23/22 14:46) leg swelling HPI OV-f/u Left ankle fx-xrays HPI Details 87-year-old female who returns to the office today for a follow-up of left ankle fracture, 10/12/22. She continues to have discomfort with the boot wear. She also states she has discomfort in her left knee with tenderness to touch. She is doing well otherwise and has no concerns today. 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 Breast asymmetry Chronic heart failure with preserved ejection fraction (HFpEF) Cognitive dysfunction COVID-19 Degenerative disc disease, lumbar Disc degeneration, lumbar Essential hypertension Herpes zoster Hyperkalemia Hypothyroid Iliotibial band syndrome of left side Iliotibial band syndrome of right side Left thigh pain Orthostatic hypotension Osteopenia Spinal stenosis of lumbar region Type 2 diabetes mellitus with hyperglycemia UTI (urinary tract infection) Weakness Surgical History History of appendectomy History of cataract surgery History of section History of cholecystectomy History of eye surgery History of hip replacement History of knee replacement History of removal of cyst Family History Father CVD (cardiovascular disease) Mother CVD (cardiovascular disease) Stroke Social History Household Members: None Household Members Other:: son comes 3 days a week, daughter lives 5 minutes away visits frequently Housing: House Do you presently have visiting nurse or other home services: Yes Alcohol intake: never Patient Tobacco Use Status: Former Tobacco user Tobacco use type: Cigarette Years Smoked: <1 e-Cigarette/Vaping Use: Former Use Second Hand Smoke Exposure: No Advance Directives Date on File: 08/29/21 service: No Current occupational status: retired Cognitive needs: Yes (Walker) Hearing needs: No Vision needs: Yes Review of Systems Const All systems reviewed & are unremarkable except as noted in HPI and below Physical Exam Vital Signs: BMI result Body Mass Index 27.5 Const General: cooperative and no acute distress Orientation/consciousness: patient oriented x3 Resp Effort & Inspection: normal respiratory effort and able to speak in complete sentences Cardio Peripheral pulses: Peripheral pulses 2+ throughout Neuro General: patient oriented x3 Extrem Other: Left ankle normal to inspection with resolved swelling over the medial and lateral malleolus with tenderness along the soft tissues.No discomfort along the posterior aspect of the ankle, no deformity along the Achilles tendon, negative Duarte?s. No pain along the syndesmosis or anterior tibia. No laxity, NVI. Results Reviewed Results Reviewed: Xrays were obtained in the office today and personally reviewed by me of the left ankle show a healing , non displaced distal fibular fracture, ankle mortise intact. Assessment & Plan Assessment & Plan (1) Fracture of distal end of left fibula: Comment: October 2022 Code(s): S82.832A - Other fracture of upper and lower end of left fibula, initial encounter for closed fracture Plan She is going to transition to an off the shelf lace up ankle brace. She will begin physical therapy for ROM, gentle strengthening and proprioceptive training. I did explain that over the next few weeks, she should see some improvement where she can ween the brace but she may have episodes of inflammation and discomfort if she is active and standing for long periods of time where she will need to rest and elevate throughout the day. She does not need to see me back unless symptoms worsens or if she has any concerns, she should contact the office. Orders: Orders XR ankle LT min 3V Today M25.572 - Pain in left ankle and joints of left foot PT Evaluation and Treatment Today S82.832A - Other fracture of upper and lower end of left fibula, initial encounter for closed fracture Patient Instructions: Scribed for Elizabeth Mcknight PA-C, by Pedro Amaro medical photographer, on 11/23/2022 at 2:15 PM EST. I, Elizabeth Mcknight PA-C, have personally reviewed and agree with the information entered by the scribe. Coding Level of Care Code Global (71798) Diagnoses Fracture of distal end of left fibula S82.832A
[2022-11-23 14:46] VITALS: BMI 27.5
== END 2022-11-23 15:18 | disposition home or self-care (01) ==
PROVIDERS: PCP Internal Medicine; Visit Provider Physician Assistant
DX: S82.832A Other fracture of upper and lower end of left fibula, initial encounter for closed fracture (principal)
CPT/HCPCS: 99214

== ENCOUNTER 2023-02-12 10:27 | Outpatient (AMB) | payer MEDICARE, SELFPAY ==
[2023-02-12 10:31] VITALS: BP 156/80; PULSE 89; BMI 28.0
--- NOTE | 2023-02-12 10:31 | MHC.OFFVIS ---
Intake Vital Signs 02/12/23 10:31 Height 4 ft 11 in Weight 138 lb 7.205 oz BMI 28.0 BP 156/80 H Blood Pressure Location Lt brachial Position Sitting Pulse 89 Intake Visit Reasons: 3 month follow up holter Intake Note: 3 month follow up w/ EKG Shine Worker Required: No Accompanied by: Daughter Allergies codeine Allergy (Intermediate, Verified 02/12/23 10:33) TACHYCARDIA nitrofurantoin [Macrobid] Allergy (Unknown, Verified 02/12/23 10:33) confusion pravastatin Allergy (Unknown, Verified 02/12/23 10:33) Unknown rosuvastatin [Crestor] Allergy (Unknown, Verified 02/12/23 10:33) Unknown Sulfa (Sulfonamide Antibiotics) Allergy (Unknown, Verified 02/12/23 10:33) unknown sulfamethoxazole [From Bactrim] Allergy (Unknown, Verified 02/12/23 10:33) Unknown trimethoprim [From Bactrim] Allergy (Unknown, Verified 02/12/23 10:33) Unknown amlodipine Adverse Reaction (Intermediate, Verified 02/12/23 10:33) leg swelling Medication List - Last Reconciled 02/12/23 by Gene Morrow MD acetaminophen 1,000 mg PO TID albuterol sulfate 90 mcg/actuation (Ventolin HFA) 2 puffs inhalation Q6H PRN amiodarone 200 mg PO DAILY 90 days cholecalciferol (vitamin D3) 25 mcg PO DAILY ferrous sulfate-vitamin C 39-75 mg tabs PO flash glucose scanning reader (FreeStyle Madeline 2 [place]) Dx: E11.65 - Use as directed flash glucose sensor (FreeStyle Madeline 14 Day Sensor kit) Dx: E11.65 As directed, 14 days flash glucose sensor (FreeStyle Madeline 2 Sensor kit) Dx: E11.65 - Use as directed furosemide 40 mg PO .once or twice a day glucose (Dex4 Glucose) 4 grams PO Q15M PRN glycerin (adult) 1 supp SC DAILY PRN hydralazine 10 mg PO ONCE PRN insulin glargine U-300 conc (Toujeo SoloStar U-300 Insulin) 12 units (0.04 mL) subcut QAM insulin lispro (Humalog KwikPen (U-100) Insulin) See Protocol 6 units subcutaneously 3 times a day before meals; or as directed according to sliding scale lactulose 30 mL PO DAILY PRN levothyroxine 125 mcg PO DAILY metoprolol succinate ER 100 mg PO DAILY 90 days omeprazole 20 mg PO DAILY@0630 pen needle, diabetic (BD Eveline 2nd Gen Pen Needle) USEN TO INJECT INSULIN FOUR TIMES DAILY rivaroxaban (Xarelto) 15 mg PO DAILY@1700 90 days simvastatin 10 mg PO BEDTIME travoprost 0.004% 1 drp ophthalmic (eye) BEDTIME vitamins A,C,Y-lfae-bijqry 4,296 mcg-226 mg-90 mg (PreserVision AREDS) 1 cap PO BID HPI HPI Comments History of Present Illness Details Gerri returns for follow-up regarding atrial fibrillation and diastolic congestive heart failure. She has been cardioverted around 4 times or so in the last few years. She was doing okay on amiodarone but more recently, still went back into atrial fibrillation. Shortness of breath is just about the same as before. No clear-cut angina. Erratic blood pressures as before. 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 Breast asymmetry Chronic heart failure with preserved ejection fraction (HFpEF) Cognitive dysfunction COVID-19 Degenerative disc disease, lumbar Disc degeneration, lumbar Essential hypertension Herpes zoster Hyperkalemia Hypothyroid Iliotibial band syndrome of left side Iliotibial band syndrome of right side Left thigh pain Orthostatic hypotension Osteopenia Spinal stenosis of lumbar region Type 2 diabetes mellitus with hyperglycemia UTI (urinary tract infection) Weakness Surgical History History of removal of cyst History of appendectomy History of eye surgery History of cataract surgery History of cholecystectomy History of section History of knee replacement History of hip replacement Family History Father CVD (cardiovascular disease) Mother CVD (cardiovascular disease) Stroke Social History Household Members: None Household Members Other:: son comes 3 days a week, daughter lives 5 minutes away visits frequently Housing: House Do you presently have visiting nurse or other home services: Yes Alcohol intake: never Patient Tobacco Use Status: Former Tobacco user Tobacco use type: Cigarette Years Smoked: <1 e-Cigarette/Vaping Use: Former Use Second Hand Smoke Exposure: No Advance Directives Date on File: 08/29/21 service: No Current occupational status: retired Cognitive needs: Yes (Walker) Hearing needs: No Vision needs: Yes Review of Systems Const Denies weakness ENT Denies dizziness Card Denies chest pain, Denies chest pain with activity, Denies syncope, Denies rapid heart rate, Denies pedal edema, Denies edema, Denies leg edema, Denies lightheadedness, Denies palpitations, Denies dyspnea, Denies dyspnea on exertion and Denies orthopnea Resp Denies cough, Denies dyspnea and Denies dyspnea on exertion GI Denies hematochezia and Denies change in stool character Musc Denies abnormal gait, Denies muscle cramps, Denies muscle weakness, Denies numbness, Denies radiating pain into limb and Denies tingling Neuro Denies abnormal gait, Denies dizziness, Denies syncope, Denies numbness, Denies tingling and Denies weakness Endo Denies palpitations Physical Exam Vital Signs: Last Vital Signs Pulse 89 02/12/23 10:31 BP 156/80 H 02/12/23 10:31 BMI result Body Mass Index 28.0 Const General: comfortable and no acute distress Orientation/consciousness: patient oriented x3 HEENT Other: Unremarkable Head: Yes normal to inspection Neck Neck: Yes normal visual inspection Chest Chest palpation & inspection: normal inspection of the chest Resp Other: few basal crackles, suspected atelectasis Cardio Palpation: normal PMI Heart sounds: S1 normal heart sound present, S2 normal heart sound present, no gallops, Murmur heart sound present systolic early, IV/ and at the right sternal border and no rubs GI Palpation (GI): Soft to palpation Back/Spine/Pelvis Other: unremarkable Skin General skin exam: no rashes or lesions noted Neuro General: patient oriented x3 Extrem General: Yes normal to inspection Psych Mental Status: mental status grossly normal Office Procedures EKG Details: EKG with atrial fibrillation at a rate of 89/Min; minimal voltage criteria for LVH; nonspecific ST-T changes. [id number], Complete Assessment & Plan Assessment & Plan (1) Chronic heart failure with preserved ejection fraction (HFpEF): Code(s): I50.32 - Chronic diastolic (congestive) heart failure Plan: Stable. Continue diuretics. (2) Atherosclerotic cardiovascular disease: Code(s): I25.10 - Atherosclerotic heart disease of [place] coronary artery without angina pectoris Plan: Cardiac catheterization-2016 LAD-mid LAD 50%; mild to moderate disease beyond the mid segment; circumflex-2nd marginal-midsection 85%; RCA-moderate diffuse disease. Continue statins. LDLs have been in the 50s, 70s, 80s, 90s at different times. No changes today. (3) PAF (paroxysmal atrial fibrillation): Code(s): I48.0 - Paroxysmal atrial fibrillation Plan: Holter shows adequate rate control of atrial fibrillation. Average rate 85/Min. Stop amiodarone. Rate control with beta-blockers. If necessary, possible digoxin but she does have borderline GFR. Or increased beta-live dosing. Continue anticoagulation. We discussed at length about rate control versus rhythm control and decided on rate control only. She has been cardioverted several times before. (4) Essential hypertension: Code(s): I10 - Essential (primary) hypertension Plan: Additional hydralazine to be used as necessary. (5) Hyperkalemia: Code(s): E87.5 - Hyperkalemia Plan: Off spironolactone. Last potassium 3.9. Plan Discussed with daughter. Medications: Discontinued amiodarone Discontinued Reason: Doctor's Order 200 mg PO DAILY 90 days 90 tabs 3RF Coding Level of Care Code Est Pt Level 4 (08262) Diagnoses Chronic heart failure with preserved ejection fraction (HFpEF) I50.32 Atherosclerotic cardiovascular disease I25.10 PAF (paroxysmal atrial fibrillation) I48.0 Essential hypertension I10 Hyperkalemia E87.5 CPT Codes EKG - CPT: 68115-Anmqqkplcragqpmon, Complete ([id number])
== END 2023-02-12 11:04 | disposition home or self-care (01) ==
PROVIDERS: PCP Internal Medicine; Visit Provider Internal Medicine
DX: I50.32 Chronic diastolic (congestive) heart failure (principal); I25.10 Atherosclerotic heart disease of native coronary artery without angina pectoris; I48.0 Paroxysmal atrial fibrillation; I10 Essential (primary) hypertension; E87.5 Hyperkalemia
CPT/HCPCS: 93010; 99214

== ENCOUNTER → 2023-02-12 10:27 | Outpatient (BNVA) | payer MEDICARE, SELFPAY | PROVIDERS: PCP Internal Medicine; Visit Provider Internal Medicine | DX: I11.0 Hypertensive heart disease with heart failure (principal); I50.32 Chronic diastolic (congestive) heart failure; I25.10 Atherosclerotic heart disease of native coronary artery without angina pectoris; I48.0 Paroxysmal atrial fibrillation; E87.5 Hyperkalemia; Z79.01 Long term (current) use of anticoagulants; Z79.899 Other long term (current) drug therapy | CPT/HCPCS: 93005; 99212 ==

== ENCOUNTER 2023-02-28 11:00 | Outpatient (AMB) | payer MEDICARE, SELFPAY ==
[2023-02-28 11:02] VITALS: BP 136/78; PULSE 94; O2SAT 98; BMI 27.7
--- NOTE | 2023-02-28 11:02 | MHC.PC.OV ---
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 Meat Required: No Allergies codeine Allergy (Intermediate, Verified 02/28/23 11:08) TACHYCARDIA nitrofurantoin [Macrobid] Allergy (Unknown, Verified 02/28/23 11:08) confusion pravastatin Allergy (Unknown, Verified 02/28/23 11:08) Unknown rosuvastatin [Crestor] Allergy (Unknown, Verified 02/28/23 11:08) Unknown Sulfa (Sulfonamide Antibiotics) Allergy (Unknown, Verified 02/28/23 11:08) unknown sulfamethoxazole [From Bactrim] Allergy (Unknown, Verified 02/28/23 11:08) Unknown trimethoprim [From Bactrim] Allergy (Unknown, Verified 02/28/23 11:08) Unknown amlodipine Adverse Reaction (Intermediate, Verified 02/28/23 11:08) leg swelling Tobacco use date assessed: 02/28/23 Fall risk assessment: No Falls in past year Last assessed Fall Risk: 02/28/23 Dental Screening Dental Screen Date: 02/28/23 HPI DM HPI Details 87-year-old overweight female with brittle diabetes mellitus with hyperglycemia hypothyroid atrial fibrillation congestive heart failure coronary artery disease hypertension obstructive sleep apnea with chronic kidney disease coming in for follow-up. Last seen in November 2022. Review of the notes has followed up with Cardiology patient has been cardioverted around 4 times in the last few years on amiodarone still went back to atrial fibrillation Holter shows atrial fibrillation adequate rate patient was advised to stop amiodarone continue on beta-blockers continue with anticoagulation. Patient also follows up with orthopedics last seen in November 2022 left hip pain diagnosis of left hip trochanteric bursitis left knee osteoarthritis had injections done. 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 Breast asymmetry Chronic heart failure with preserved ejection fraction (HFpEF) Cognitive dysfunction COVID-19 Degenerative disc disease, lumbar Disc degeneration, lumbar Essential hypertension Herpes zoster Hyperkalemia Hypothyroid Iliotibial band syndrome of left side Iliotibial band syndrome of right side Left thigh pain Orthostatic hypotension Osteopenia Spinal stenosis of lumbar region Type 2 diabetes mellitus with hyperglycemia UTI (urinary tract infection) Weakness Surgical History History of removal of cyst History of appendectomy History of eye surgery History of cataract surgery History of cholecystectomy History of section History of knee replacement History of hip replacement Family History Father CVD (cardiovascular disease) Mother CVD (cardiovascular disease) Stroke Household Members: None Household Members Other:: son comes 3 days a week, daughter lives 5 minutes away visits frequently Housing: House Do you presently have visiting nurse or other home services: Yes Alcohol intake: never Patient Tobacco Use Status: Former Tobacco user Tobacco use type: Cigarette Years Smoked: <1 e-Cigarette/Vaping Use: Former Use Second Hand Smoke Exposure: No Advance Directives Date on File: 08/29/21 service: No Current occupational status: retired Cognitive needs: Yes (Walker) Hearing needs: No Vision needs: Yes Questionnaire Thrive Questionnaire Date Thrive assessed: 09/12/22 AUDIT C Alcohol Use Questionnaire (AUDIT-C) 1. How often do you have a drink containing alcohol?: Never 3. How often do you have six or more drinks on one occasion?: Never Total Score: 0 DILIP-7 AMB Questionnaire DILIP-7 Date DILIP - 7 assessed: 09/12/22 Source: Developed by Drs. Akbar Rocha, Theodora Huddleston, Woo Garcia and colleagues, with an educational cesia from [employer]. Physical exam (Primary Care) Vital Signs: Last Vital Signs Pulse 94 02/28/23 11:02 BP 136/78 02/28/23 11:02 Pulse Ox 98 02/28/23 11:02 Oxygen Delivery Method Room Air 02/28/23 11:02 BMI result Body Mass Index 27.7 Tobacco/Smoking Status: Tobacco use Status Tobacco use date assessed 02/28/23 02/28/23 11:03 Patient Tobacco Use Status Former Tobacco user 02/28/23 11:03 Tobacco use type Cigarette 02/28/23 11:03 e-Cigarette/Vaping Use Former Use 02/28/23 11:03 Thrive Assessment: Date of Thrive Assessment Date Thrive assessed 09/12/22 02/28/23 11:03 Const General: alert; No acute distress HENMT Other: impacted cerumen bilateral Eyes Conjunctivae: conjunctivae normal Resp Auscultation: clear to auscultation bilaterally Cardio Rate: regular rate Rhythm: regular rhythm GI Inspection: Yes normal to inspection Extrem General: Yes normal to inspection and No edema Office Procedures Cerumen Removal From which ear canal was the cerumen removed: bilateral Removal: irrigation, otoscope w/curette, cerumen loop/spoon and other Notes: patient tolerated procedure well, no complications and ear canal clear [id number] Irrigation/Lavage Flu Questionnaire Does the patient have a severe egg allergy?: No Does the patient have severe life threatening allergies?: No Does the patient have a fever or illness today?: No Has the patient ever had Guillain-Lane Syndrome?: No Has the patient ever had any past reaction to a flu shot?: No Results AMB Hemoglobin A1c AMB Hemoglobin A1c 10.4 % Last Edit by DANGELO Khan on 02/28/23 11:17 Immunizations flu vacc [id number] 6mos up(PF) 60 mcg(15 mcgx4)/0.5 mL IM syringe Performing Provider: Mnoique White MD Performing Location: [facility] Administered by: DANGELO Khan on 02/28/23 11:17 Dose Route Admin Location Dispensed Lot Number Expiration Date NDC Family Assistant 0.5 mL IM Left Deltoid 0.5 mL [id number] 10/07/23 66016-625-32 [employer] VIS Given Date VIS Provided VIS Publication Date 02/28/23 Single Vaccine 20 Eligibility Eligibility Date Funding Source Not [facility] Eligible 02/28/23 Private Results Reviewed Results Reviewed: Laboratory Last Values Hgb A1c (Clinic) 10.4 % (4.0-6.0) H 02/28/23 10:54 Assessment and Plan Assessment & Plan (1) Type 2 diabetes mellitus with hyperglycemia: Comment: With retinopathy Code(s): E11.65 - Type 2 diabetes mellitus with hyperglycemia Qualifiers: Diabetes mellitus halfway insulin use: with spectrographic analyst use Qualified Code(s): E11.65 - Type 2 diabetes mellitus with hyperglycemia; Z79.4 - detention (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 Continue to monitor and take medication patient on Toujeo and Humalog hemoglobin A1c today is high (2) Hypothyroid: Code(s): E03.9 - Hypothyroidism, unspecified Qualifiers: Hypothyroidism type: acquired Qualified Code(s): E03.9 - Hypothyroidism, unspecified Plan: Continue with thyroid medication (3) Atrial fibrillation: Comment: Cardioversion May 2020 Code(s): I48.91 - Unspecified atrial fibrillation Qualifiers: Atrial fibrillation type: paroxysmal Qualified Code(s): I48.0 - Paroxysmal atrial fibrillation Plan: Patient has followed up with Cardiology. Rate control being done. Has had multiple cardioversions. (4) Chronic heart failure with preserved ejection fraction (HFpEF): Code(s): I50.32 - Chronic diastolic (congestive) heart failure Plan: Continue to diurese with daily furosemide (5) Atherosclerotic cardiovascular disease: Code(s): I25.10 - Atherosclerotic heart disease of [place] coronary artery without angina pectoris Plan: Control the cholesterol, weight, blood pressure, diabetes (6) Essential hypertension: Code(s): I10 - Essential (primary) hypertension Plan: Continue with blood pressure medication. Decrease salt intake and exercise hydralazine metoprolol 100 mg once a day (7) Chronic kidney disease, stage 3b: Code(s): N18.32 - Chronic kidney disease, stage 3b Plan: Continuing to monitor (8) Trochanteric bursitis: Code(s): M70.60 - Trochanteric bursitis, unspecified hip Plan: Patient follows up with orthopedics (9) Impacted cerumen of both ears: Code(s): H61.23 - Impacted cerumen, bilateral Plan: TM intact after irrigation and scoop use Orders: Orders AMB Hemoglobin A1c Today E11.65 - Type 2 diabetes mellitus with hyperglycemia Influenza [id number] Immunization Today Z23 - Encounter for immunization Comprehensive Met. 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) use of insulin Ferritin 3 Months E11.65 - Type 2 diabetes mellitus with hyperglycemia, Z79.4 - detention (current) use of insulin IRON PROFILE 3 Months E11.65 - Type 2 diabetes mellitus with hyperglycemia, Z79.4 - adjunct latin professor (current) use of insulin Vitamin B12 and Folate 3 Months E11.65 - Type 2 diabetes mellitus with hyperglycemia, Z79.4 - adjunct latin professor (current) use of insulin Thyroid Stimulating Hormone 3 Months E11.65 - Type 2 diabetes mellitus with hyperglycemia, Z79.4 - detention (current) use of insulin Vitamin D 25-OH Total 3 Months E11.65 - Type 2 diabetes mellitus with hyperglycemia, Z79.4 - detention (current) use of insulin B Type Natriuretic Peptide 3 Months E11.65 - Type 2 diabetes mellitus with hyperglycemia, Z79.4 - detention (current) use of insulin Complete Blood Count Auto Diff 3 Months E11.65 - Type 2 diabetes mellitus with hyperglycemia, Z79.4 - detention (current) use of insulin Reticulocyte Count 3 Months E11.65 - Type 2 diabetes mellitus with hyperglycemia, Z79.4 - adjunct latin professor (current) use of insulin Free T4 (Free Thyroxine) 3 Months E11.65 - Type 2 diabetes mellitus with hyperglycemia, Z79.4 - detention (current) use of insulin Hemoglobin A1c 3 Months E11.65 - Type 2 diabetes mellitus with hyperglycemia, Z79.4 - detention (current) use of insulin Lipid Panel 3 Months E11.65 - Type 2 diabetes mellitus with hyperglycemia, E78.00 - Pure hypercholesterolemia, unspecified, Z79.4 - detention (current) use of insulin Coding Level of Care Code Est Pt Level 4 (69317) Diagnoses Type 2 diabetes mellitus with hyperglycemia, with long-term current use of insulin E11.65; Z79.4 Diabetes mellitus spectrographic analyst insulin use: with spectrographic analyst use Acquired hypothyroidism E03.9 Hypothyroidism type: acquired Paroxysmal atrial fibrillation I48.0 Atrial fibrillation type: paroxysmal Chronic heart failure with preserved ejection fraction (HFpEF) I50.32 Atherosclerotic cardiovascular disease I25.10 Essential hypertension I10 Chronic kidney disease, stage 3b N18.32 Trochanteric bursitis M70.60 Impacted cerumen of both ears H61.23 CPT Codes Office Procedure - CPT: 71947-Hzy Irrigation/Lavage ([id number])
== END 2023-02-28 12:12 | disposition home or self-care (01) ==
PROVIDERS: PCP Internal Medicine; Visit Provider Internal Medicine
DX: E11.65 Type 2 diabetes mellitus with hyperglycemia (principal); Z79.4 Long term (current) use of insulin; I48.0 Paroxysmal atrial fibrillation; Z23 Encounter for immunization; I50.32 Chronic diastolic (congestive) heart failure; E03.9 Hypothyroidism, unspecified; N18.32 Chronic kidney disease, stage 3b; M70.60 Trochanteric bursitis, unspecified hip; I25.10 Atherosclerotic heart disease of native coronary artery without angina pectoris; I10 Essential (primary) hypertension; H61.23 Impacted cerumen, bilateral
CPT/HCPCS: 69209; 83036; 90471; 90686; 99214

== ENCOUNTER 2023-06-09 08:35 | Outpatient (REF) | payer MEDICARE, SELFPAY ==
[2023-06-09 08:52] LABS: MANUAL DIFF FLAG NO
[2023-06-09 09:04] LABS: Basophils Absolute Auto 0.1 X10*3/uL (0.0-0.2); Basophils Percent Auto 1.5 % (0-2); Eosinophils Absolute Auto 0.7 X10*3/uL (0.0-0.4); Eosinophils Percent Auto 10.7 % (0-4); Hemoglobin 12.7 g/dl (12.0-16.0); Imm Gran Abs Auto 0.02 X10*3/uL (0.00-0.03); Imm Gran Pct Auto 0.3 % (0.0-0.4); Immature Retic Fraction 10.8 % (3.0-15.9); Lymphocytes Absolute Auto 1.3 X10*3/uL (1.2-4.9); Mean Corpuscular HGB Conc 32.6 g/dl (31.0-35.0); Mean Corpuscular Hemoglobin 30.2 pg (27.0-33.0); Mean Corpuscular Volume 92.9 fL (80.0-98.0); Monocytes Absolute Auto 0.7 X10*3/uL (0.1-1.2); Neutrophils Absolute Auto 3.8 x10*3/uL (2.0-8.3); Neutrophils Percent Auto 57.5 % (45-73); Platelet Count 227 X10*3/uL (160-400); Red Cell Distribution Width 15.9 % (11.0-16.0); Retic HGB Equivalent 33.9 pg (30.0-35.0); Reticulocyte Percent 1.3 % (0.5-1.8); Reticulocytes Absolute 0.053 X10*6/uL (0.026-0.095); White Blood Count 6.6 X10*3/uL (4.8-10.8)
[2023-06-09 09:20] LABS: Estimated Average Glucose 232 mg/dL; Hemoglobin A1c % 9.7 % (<6.0)
[2023-06-09 09:24] LABS: B Type Natriuretic Peptide 471 pg/mL (<100)
[2023-06-09 09:42] LABS: Alanine Aminotransferase 20 U/L (0-31); Albumin Level 4.1 g/dL (3.5-5.0); Alkaline Phosphatase 85 U/L (39-117); Anion Gap 12 (12-20); Aspartate Amino Transferase 19 U/L (5-31); Bilirubin Total 0.6 mg/dL (0.0-1.0); Blood Urea Nitrogen 24 mg/dL (9-16); Calcium 9.5 mg/dL (8.4-10.2); Carbon Dioxide 30 mmol/L (22-29); Chloride 101 mmol/L (96-108); Cholesterol 125 mg/dL (<200); Estimated Glomerular Filt Rate 49; Glucose Random 292 mg/dL (60-115); HDL Cholesterol 59 mg/dL (>40); Iron 45 mcg/dL (30-160); LDL Cholesterol Calculated 52 mg/dL (<100); Magnesium 2.3 mg/dL (1.6-2.6); Percent Iron Saturation 18 % (15-50); Phosphorus 3.6 mg/dL (2.7-4.5); Potassium 4.4 mmol/L (3.3-5.1); Sodium 139 mmol/L (135-145); Total Iron Binding Capacity 257 mcg/dL (228-428); Total Protein 6.9 g/dL (6.5-8.0); Triglycerides 74 mg/dL (<150); Unsaturated Iron Binding 212 ug/dL
[2023-06-09 09:57] LABS: Ferritin 52 ng/mL (10-250); Free T4 (Free Thyroxine) 1.42 ng/dL (0.71-1.85); Thyroid Stimulating Hormone 0.97 uIU/mL (0.32-4.0); Vitamin D 25-OH Total 30.9 ng/mL (>30)
[2023-06-09 10:05] LABS: Folate 12.4 ng/mL (> or = 4.0); Vitamin B12 779 pg/mL (200-900)
== END 2023-06-09 08:36 | disposition home or self-care (01) ==
LOC: HO.LAB 08:35
PROVIDERS: PCP Internal Medicine; Visit Provider Internal Medicine
DX: D50.9 Iron deficiency anemia, unspecified (principal); N18.32 Chronic kidney disease, stage 3b; E78.00 Pure hypercholesterolemia, unspecified; E11.65 Type 2 diabetes mellitus with hyperglycemia; Z79.4 Long term (current) use of insulin
CPT/HCPCS: 36415; 80053; 80061; 82306; 82607; 82728; 82746; 83036; 83540; 83735; 83880; 84100; 84439; 84443; 85025; 85045

== ENCOUNTER 2023-06-11 10:48 | Outpatient (AMB) | payer MEDICARE, SELFPAY ==
--- NOTE | 2023-06-11 10:52 | MHC.PC.OV ---
Vital Signs 06/11/23 10:54 Height 4 ft 11 in Weight 136 lb 2 oz BMI 27.5 BP 130/60 Blood Pressure Location Rt brachial Position Sitting Pulse 69 Pulse Source Pulse Oximeter Pulse Oximetry (%) 99 Oxygen Delivery Method Room Air Intake Visit Reasons: DM Intake Note: Patient is here to follow up on DM. Pt requested for UA due to frequent uti, sample collected. 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 Farm Worker: Present Accompanied by: Daughter Allergies codeine Allergy (Intermediate, Verified 06/11/23 10:53) TACHYCARDIA nitrofurantoin [Macrobid] Allergy (Unknown, Verified 06/11/23 10:53) confusion pravastatin Allergy (Unknown, Verified 06/11/23 10:53) Unknown rosuvastatin [Crestor] Allergy (Unknown, Verified 06/11/23 10:53) Unknown Sulfa (Sulfonamide Antibiotics) Allergy (Unknown, Verified 06/11/23 10:53) unknown sulfamethoxazole [From Bactrim] Allergy (Unknown, Verified 06/11/23 10:53) Unknown trimethoprim [From Bactrim] Allergy (Unknown, Verified 06/11/23 10:53) Unknown amlodipine Adverse Reaction (Intermediate, Verified 06/11/23 10:53) leg swelling Tobacco use date assessed: 06/11/23 Fall risk assessment: No Falls in past year Last assessed Fall Risk: 06/11/23 Dental Screening Dental Screen Date: 06/11/23 Did you have a dental visit in the last 12 months?: Yes Did you have a dental problem in the last 6 months where you did not have access to dental care?: No Was dental information given to patient?: Patient has dentist HPI DM HPI Details 87-year-old overweight female with a brittle diabetes hypothyroid atrial fibrillation congestive heart failure with coronary artery disease hypertension chronic kidney disease coming in for follow-up. Last seen February 2023. 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 Breast asymmetry Chronic heart failure with preserved ejection fraction (HFpEF) Cognitive dysfunction COVID-19 Degenerative disc disease, lumbar Disc degeneration, lumbar Essential hypertension Herpes zoster Hyperkalemia Hypothyroid Iliotibial band syndrome of left side Iliotibial band syndrome of right side Left thigh pain Orthostatic hypotension Osteopenia Spinal stenosis of lumbar region Type 2 diabetes mellitus with hyperglycemia UTI (urinary tract infection) Weakness Surgical History History of removal of cyst History of appendectomy History of eye surgery History of cataract surgery History of cholecystectomy History of section History of knee replacement History of hip replacement Family History Father CVD (cardiovascular disease) Mother CVD (cardiovascular disease) Stroke Social History Household Members: None Household Members Other:: son comes 3 days a week, daughter lives 5 minutes away visits frequently Housing: House Do you presently have visiting nurse or other home services: Yes Alcohol intake: never Comment: post cardioversion Patient Tobacco Use Status: Former Tobacco user Tobacco use type: Cigarette Years Smoked: <1 e-Cigarette/Vaping Use: Former Use Second Hand Smoke Exposure: No Advance Directives Date on File: 08/29/21 service: No Current occupational status: retired Cognitive needs: Yes (Walker) Hearing needs: No Vision needs: Yes Questionnaire PHQ-9 Over the last 2 weeks, how often have you been bothered by any of the following problems? 1. Little interest or pleasure in doing things: not at all 2. Feeling down, depressed, or hopeless: not at all 3. Trouble falling or staying asleep, or sleeping too much: not at all 4. Feeling tired or having little energy: not at all 5. Poor appetite or overeating: not at all 6. Feeling bad about yourself - or that you are a failure or have let yourself or your family down: not at all 7. Trouble concentrating on things, such as reading the newspaper or watching television: not at all 8. Moving or speaking so slowly that other people could have noticed. Or the opposite - being so fidgety or restless that you have been moving around a lot more than usual: not at all 9. Thoughts that you would be better off or of hurting yourself in some way: not at all Total score: 0 Depression Screening Interpretation: Negative Depression Screening Done: Yes Source: Developed by Drs. Akbar Rocha, Woo Sosa and colleagues, with an educational cesia from [employer]. Thrive Questionnaire Date Thrive assessed: 06/11/23 I am a: Patient What is your living situation today?: I have a steady place to live Within the past 12 months, did the food you bought not last and you didn't have the money to get more?: Never true Within the past 12 months, did you worry whether your food would run out before you got money to buy more?: Never true Do you have trouble paying for medicines?: No Do you have trouble getting transportation to medical appointments?: No Do you have trouble paying your heating and electricity bill?: No Do you have trouble taking care of your child, family member or friend?: No Do you have trouble with day-to-day activities such as bathing, preparing meals, shopping, managing finances, etc.?: No Are you currently unemployed and looking for a job?: No Are you interested in more education?: No Currently or been in a relationship where the following occur: no concerns reported THRIVE Score: 0 AUDIT C Alcohol Use Questionnaire (AUDIT-C) 1. How often do you have a drink containing alcohol?: Never Total Score: 0 DILIP-7 AMB Questionnaire DILIP-7 Date DILIP - 7 assessed: 06/11/23 Feeling nervous, anxious, or on edge: 0 = Not at all Not being able to stop or control worryin = Not at all Worrying too much about different things: 0 = Not at all Trouble relaxin = Not at all Being so restless that it is hard to sit still: 0 = Not at all Becoming easily annoyed or irritable: 0 = Not at all Feeling afraid as if something awful might happen: 0 = Not at all Total DILIP-7 score (0-4 normal; 5-9 mild; 10-14 moderate; 15-21 severe): 0 Source: Developed by Drs. Akbar Rocha, Woo Sosa and colleagues, with an educational cesia from [employer]. Physical exam (Primary Care) Tobacco/Smoking Status: Tobacco use Status Tobacco use date assessed 02/28/23 06/11/23 10:52 Patient Tobacco Use Status Former Tobacco user 06/11/23 10:52 Tobacco use type Cigarette 06/11/23 10:52 e-Cigarette/Vaping Use Former Use 06/11/23 10:52 Depression Screening Interpretation: Negative Thrive Assessment: Date of Thrive Assessment Date Thrive assessed 09/12/22 06/11/23 10:52 Currently or been in a relationship where the following occur: no concerns reported Const General: alert; No acute distress Eyes Conjunctivae: conjunctivae normal Resp Auscultation: clear to auscultation bilaterally Cardio Rate: regular rate Rhythm: regular rhythm GI Inspection: Yes normal to inspection Extrem General: Yes normal to inspection and No edema Results AMB Urinalysis, Automated UA Leukoctes 2 David/uL Last Edit by DANGELO Pollock on 06/11/23 11:12 UA Nitrite Negative Last Edit by DANGELO Pollock on 06/11/23 11:12 UA Urobilinogen 0 mg/dL Last Edit by DANGELO Pollock on 06/11/23 11:12 UA Protein 2 mg/dL Last Edit by DANGELO Pollock on 06/11/23 11:12 UA pH 6.0 Last Edit by DANGELO Pollock on 06/11/23 11:12 UA Blood 1 Vinicius/uL Last Edit by DANGELO Pollock on 06/11/23 11:12 UA Specific [place]ver 1.015 Last Edit by DANGELO Pollock on 06/11/23 11:12 UA Ketone Negative Last Edit by DANGELO Pollock on 06/11/23 11:12 UA Bilirubin 0 mg/dL Last Edit by DANGELO Pollock on 06/11/23 11:12 UA Glucose 1 mg/dL Last Edit by DANGELO Pollock on 06/11/23 11:12 Assessment and Plan Assessment & Plan (1) Type 2 diabetes mellitus with hyperglycemia: Comment: With retinopathy Code(s): E11.65 - Type 2 diabetes mellitus with hyperglycemia Qualifiers: Diabetes mellitus prison insulin use: with prison use Qualified Code(s): E11.65 - Type 2 diabetes mellitus with hyperglycemia; Z79.4 - senior care (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 Hemoglobin A1c goal of less than 7.0. Patient on Toujeo insulin and Humalog (2) Hypothyroid: Code(s): E03.9 - Hypothyroidism, unspecified Qualifiers: Hypothyroidism type: acquired Qualified Code(s): E03.9 - Hypothyroidism, unspecified Plan: Continue with thyroid medication (3) Atrial fibrillation: Comment: Cardioversion May 2020 Code(s): I48.91 - Unspecified atrial fibrillation Qualifiers: Atrial fibrillation type: paroxysmal Qualified Code(s): I48.0 - Paroxysmal atrial fibrillation Plan: Continue with anticoagulation and continuing to monitor renal function (4) Chronic heart failure with preserved ejection fraction (HFpEF): Code(s): I50.32 - Chronic diastolic (congestive) heart failure Plan: Continue with the diuretic monitor the electrolytes (5) Atherosclerotic cardiovascular disease: Code(s): I25.10 - Atherosclerotic heart disease of [place] coronary artery without angina pectoris Plan: Control the cholesterol, weight, blood pressure, diabetes and presently on anticoagulation (6) Essential hypertension: Code(s): I10 - Essential (primary) hypertension Plan: Continue with blood pressure medication. Decrease salt intake and exercise presently on metoprolol hydralazine (7) Hypercholesterolemia: Code(s): E78.00 - Pure hypercholesterolemia, unspecified Plan: Avoid fried foods, chicken skin, eggs, butter margarine, pastries and meat. Be it pork or beef they have a lot of cholesterol LDL goal of less than 70. Patient on simvastatin Orders: Orders AMB Urinalysis Automated Today Z13.9 - Encounter for screening, unspecified Complete Blood Count Auto Diff 3 Months I10 - Essential (primary) hypertension Comprehensive Met. Panel 3 Months I10 - Essential (primary) hypertension Coding Level of Care Code Est Pt Level 4 (68551) Diagnoses Type 2 diabetes mellitus with hyperglycemia, with long-term current use of insulin E11.65; Z79.4 Diabetes mellitus remote computer terminal operator insulin use: with remote computer terminal operator use Acquired hypothyroidism E03.9 Hypothyroidism type: acquired Paroxysmal atrial fibrillation I48.0 Atrial fibrillation type: paroxysmal Chronic heart failure with preserved ejection fraction (HFpEF) I50.32 Atherosclerotic cardiovascular disease I25.10 Essential hypertension I10 Hypercholesterolemia E78.00
[2023-06-11 10:54] VITALS: BP 130/60; PULSE 69; O2SAT 99; BMI 27.5
== END 2023-06-11 11:34 | disposition home or self-care (01) ==
PROVIDERS: PCP Internal Medicine; Visit Provider Internal Medicine
DX: E11.65 Type 2 diabetes mellitus with hyperglycemia (principal); Z79.4 Long term (current) use of insulin; I48.0 Paroxysmal atrial fibrillation; I50.32 Chronic diastolic (congestive) heart failure; I25.10 Atherosclerotic heart disease of native coronary artery without angina pectoris; I10 Essential (primary) hypertension; E78.00 Pure hypercholesterolemia, unspecified
CPT/HCPCS: 81003; 99214

== ENCOUNTER 2023-06-14 10:17 | Outpatient (AMB) | payer MEDICARE, SELFPAY ==
--- NOTE | 2023-06-14 10:20 | MHC.OFFVIS ---
Intake Vital Signs 06/14/23 10:23 Height 4 ft 11 in Weight 136 lb 10.986 oz BMI 27.6 BP 124/70 Blood Pressure Location Lt brachial Position Sitting Pulse 104 H Intake Visit Reasons: 4 mth f/up Intake Note: 4 month follow up Highway Engineer Required: No Accompanied by: Self / Same As Patient Allergies codeine Allergy (Intermediate, Verified 06/14/23 10:23) TACHYCARDIA nitrofurantoin [Macrobid] Allergy (Unknown, Verified 06/14/23 10:23) confusion pravastatin Allergy (Unknown, Verified 06/14/23 10:23) Unknown rosuvastatin [Crestor] Allergy (Unknown, Verified 06/14/23 10:23) Unknown Sulfa (Sulfonamide Antibiotics) Allergy (Unknown, Verified 06/14/23 10:23) unknown sulfamethoxazole [From Bactrim] Allergy (Unknown, Verified 06/14/23 10:23) Unknown trimethoprim [From Bactrim] Allergy (Unknown, Verified 06/14/23 10:23) Unknown amlodipine Adverse Reaction (Intermediate, Verified 06/14/23 10:23) leg swelling Medication List - Last Reconciled 06/14/23 by Gene Morrow MD acetaminophen 1,000 mg PO TID albuterol sulfate 90 mcg/actuation (Ventolin HFA) 2 puffs inhalation Q6H PRN cholecalciferol (vitamin D3) 25 mcg PO DAILY ferrous sulfate-vitamin C 39-75 mg tabs PO flash glucose sensor (FreeStyle Madeline 14 Day Sensor kit) Dx: E11.65 As directed, 14 days flash glucose sensor (FreeStyle Madeline 14 Day Sensor kit) As directed furosemide 40 mg PO .once or twice a day glucose (Dex4 Glucose) 4 grams PO Q15M PRN glycerin (adult) 1 supp TX DAILY PRN hydralazine 10 mg PO ONCE PRN insulin glargine U-300 conc (Toujeo SoloStar U-300 Insulin) 12 units (0.04 mL) subcut QAM insulin lispro (Humalog KwikPen (U-100) Insulin) See Protocol 6 units subcutaneously 3 times a day before meals; or as directed according to sliding scale lactulose 30 mL PO DAILY PRN levothyroxine 125 mcg PO DAILY metoprolol succinate ER 100 mg PO DAILY 90 days metoprolol succinate ER 25 mg PO DAILY PRN omeprazole 20 mg PO DAILY@0630 pen needle, diabetic (BD Eveline 2nd Gen Pen Needle) USEN TO INJECT INSULIN FOUR TIMES DAILY rivaroxaban (Xarelto) 15 mg PO QPM simvastatin 10 mg PO BEDTIME travoprost 0.004% 1 drp ophthalmic (eye) BEDTIME vitamins A,C,P-eigu-zauibc 4,296 mcg-226 mg-90 mg (PreserVision AREDS) 1 cap PO BID HPI HPI Comments History of Present Illness Details Gerri returns for follow-up regarding atrial fibrillation and diastolic congestive heart failure. She has been cardioverted around 4 times or so in the last few years. She was doing okay on amiodarone but more recently, still went back into atrial fibrillation. Then we stopped her amiodarone and she is only on rate control medications. Overall, feels fine. Breathing is at baseline. No other new complaints. [facility] Medical History (Updated 06/14/23 @ 11:24 by Gene Morrow MD) Persistent atrial fibrillation Left thigh pain Abdominal mass, LUQ (left upper quadrant) Iliotibial band syndrome of left side UTI (urinary tract infection) Herpes zoster Orthostatic hypotension Acute hyponatremia Weakness COVID-19 Breast asymmetry Atrial fibrillation with rapid ventricular response Hyperkalemia Essential hypertension Atherosclerotic cardiovascular disease Chronic heart failure with preserved ejection fraction (HFpEF) Iliotibial band syndrome of right side Disc degeneration, lumbar Cognitive dysfunction 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 Atrial fibrillation Osteopenia Hypothyroid Spinal stenosis of lumbar region Degenerative disc disease, lumbar Type 2 diabetes mellitus with hyperglycemia Surgical History History of removal of cyst History of appendectomy History of eye surgery History of cataract surgery History of cholecystectomy History of section History of knee replacement History of hip replacement Family History Father CVD (cardiovascular disease) Mother CVD (cardiovascular disease) Stroke Social History Household Members: None Household Members Other:: son comes 3 days a week, daughter lives 5 minutes away visits frequently Housing: House Do you presently have visiting nurse or other home services: Yes Alcohol intake: never Comment: post cardioversion Patient Tobacco Use Status: Former Tobacco user Tobacco use type: Cigarette Years Smoked: <1 e-Cigarette/Vaping Use: Former Use Second Hand Smoke Exposure: No Advance Directives Date on File: 08/29/21 service: No Current occupational status: retired Cognitive needs: Yes (Walker) Hearing needs: No Vision needs: Yes Review of Systems Const Denies weakness ENT Denies dizziness Card Denies chest pain, Denies chest pain with activity, Denies syncope, Denies rapid heart rate, Denies pedal edema, Denies edema, Denies leg edema, Denies lightheadedness, Denies palpitations, Denies dyspnea, Denies dyspnea on exertion and Denies orthopnea Resp Denies cough, Denies dyspnea and Denies dyspnea on exertion GI Denies hematochezia and Denies change in stool character Musc Denies abnormal gait, Denies muscle cramps, Denies muscle weakness, Denies numbness, Denies radiating pain into limb and Denies tingling Neuro Denies abnormal gait, Denies dizziness, Denies syncope, Denies numbness, Denies tingling and Denies weakness Endo Denies palpitations Physical Exam Vital Signs: Last Vital Signs Pulse 104 H 06/14/23 10:23 BP 124/70 06/14/23 10:23 BMI result Body Mass Index 27.6 Const General: comfortable and no acute distress Orientation/consciousness: patient oriented x3 HEENT Other: Unremarkable Head: Yes normal to inspection Neck Neck: Yes normal visual inspection Chest Chest palpation & inspection: normal inspection of the chest Resp Other: few basal crackles, suspected atelectasis Cardio Palpation: normal PMI Heart sounds: S1 normal heart sound present, S2 normal heart sound present, no gallops, Murmur heart sound present systolic early, IV/ and at the right sternal border and no rubs GI Palpation (GI): Soft to palpation Back/Spine/Pelvis Other: unremarkable Skin General skin exam: no rashes or lesions noted Neuro General: patient oriented x3 Extrem General: Yes normal to inspection Psych Mental Status: mental status grossly normal Assessment & Plan Assessment & Plan (1) Chronic heart failure with preserved ejection fraction (HFpEF): Code(s): I50.32 - Chronic diastolic (congestive) heart failure Plan: Stable on diuretics. No changes. (2) Atherosclerotic cardiovascular disease: Code(s): I25.10 - Atherosclerotic heart disease of [place] coronary artery without angina pectoris Plan: Cardiac catheterization-2016 LAD-mid LAD 50%; mild to moderate disease beyond the mid segment; circumflex-2nd marginal-midsection 85%; RCA-moderate diffuse disease. Continue statins. Stable LDL. (3) Persistent atrial fibrillation: Code(s): I48.19 - Other persistent atrial fibrillation Plan: Multiple cardioversions in the past. In the past Holter with adequate rate control with an average rate of 85/Min. However, daughter feels it slightly faster than that at home as it is more about 100+. Hence we can try adding digoxin. No loading. Check levels in a couple of weeks. She does have borderline GFR. Continue anticoagulation. (4) Essential hypertension: Code(s): I10 - Essential (primary) hypertension Plan: Stable. Meds have been changed numerous times in the past. (5) Hyperkalemia: Code(s): E87.5 - Hyperkalemia Plan: Off spironolactone. Last potassium 3.9. Plan Discussed with daughter. Orders: Orders Digoxin Today I48.19 - Other persistent atrial fibrillation Medications: New digoxin (Digox) 125 mcg PO DAILY 90 tabs 3RF Coding Level of Care Code Est Pt Level 4 (39306) Diagnoses Chronic heart failure with preserved ejection fraction (HFpEF) I50.32 Atherosclerotic cardiovascular disease I25.10 Persistent atrial fibrillation I48.19 Essential hypertension I10 Hyperkalemia E87.5
[2023-06-14 10:23] VITALS: BP 124/70; PULSE 104; BMI 27.6
== END 2023-06-14 10:41 | disposition home or self-care (01) ==
PROVIDERS: PCP Internal Medicine; Visit Provider Internal Medicine
DX: I50.32 Chronic diastolic (congestive) heart failure (principal); I25.10 Atherosclerotic heart disease of native coronary artery without angina pectoris; I48.19 Other persistent atrial fibrillation; I10 Essential (primary) hypertension; E87.5 Hyperkalemia
CPT/HCPCS: 99214

== ENCOUNTER → 2023-06-14 10:17 | Outpatient (BNVA) | payer MEDICARE, SELFPAY | PROVIDERS: PCP Internal Medicine; Visit Provider Internal Medicine | DX: I12.9 Hypertensive chronic kidney disease with stage 1 through stage 4 chronic kidney disease, or unspecified chronic kidney disease (principal); I50.32 Chronic diastolic (congestive) heart failure; I25.10 Atherosclerotic heart disease of native coronary artery without angina pectoris; I48.19 Other persistent atrial fibrillation; E87.5 Hyperkalemia | CPT/HCPCS: 99212 ==

== ENCOUNTER 2023-06-22 12:59 | Outpatient (REF) | payer MEDICARE, SELFPAY ==
[2023-06-22 14:23] LABS: Appearance Urine Cloudy; Color Urine Yellow; Glucose Urine UA 500 mg/dL (Negative); Leukocyte Esterase Urine Moderate (2+) (Negative); Nitrite Urine Negative (Negative); Specific Gravity - Urine 1.015 (1.005-1.025); UMIC TRIGGER UACC YES; Urine Blood Negative (Negative); Urine Ketones Negative (Negative); Urine Protein 30 (1+) mg/dL (Neg-Trace)
[2023-06-22 14:26] LABS: Bacteria Urine 4+ (None Seen); Hyaline Casts Urine 0-2 /LPF (0-2); RBC Urine 0-2 /HPF (0-2); Squamous Epithelial Cell Urine 0-2 /HPF (0-2); UACC Culture Trigger YES; WBC Urine >50 /HPF (0-5)
== END 2023-06-22 13:00 | disposition home or self-care (01) ==
LOC: HO.LAB 12:59
PROVIDERS: PCP Internal Medicine; Visit Provider Internal Medicine
DX: E11.65 Type 2 diabetes mellitus with hyperglycemia (principal); I10 Essential (primary) hypertension; D50.9 Iron deficiency anemia, unspecified; Z79.4 Long term (current) use of insulin; R30.0 Dysuria; N39.0 Urinary tract infection, site not specified
CPT/HCPCS: 81001; 87086; 87088; 87186

== ENCOUNTER 2023-06-30 10:35 | Outpatient (REF) | payer MEDICARE, SELFPAY ==
[2023-06-30 11:28] LABS: Appearance Urine Clear; Color Urine Yellow; Glucose Urine UA 500 mg/dL (Negative); Leukocyte Esterase Urine Negative (Negative); Nitrite Urine Negative (Negative); PH 5.5 (5.0-9.0); Urine Blood Negative (Negative); Urine Ketones Negative (Negative); Urine Protein Trace mg/dL (Neg-Trace)
== END 2023-06-30 10:36 | disposition home or self-care (01) ==
LOC: HO.LAB 10:35
PROVIDERS: PCP Internal Medicine; Visit Provider Internal Medicine
DX: R30.0 Dysuria (principal); N39.0 Urinary tract infection, site not specified; I48.19 Other persistent atrial fibrillation
CPT/HCPCS: 36415; 80162; 81003

== ENCOUNTER 2023-07-02 16:06 | Outpatient (REF) | payer MEDICARE, SELFPAY ==
[2023-07-02 16:21] LABS: MANUAL DIFF FLAG NO
[2023-07-02 16:42] LABS: Basophils Absolute Auto 0.1 X10*3/uL (0.0-0.2); Basophils Percent Auto 1.2 % (0-2); Eosinophils Absolute Auto 0.6 X10*3/uL (0.0-0.4); Eosinophils Percent Auto 7.6 % (0-4); Hematocrit 37.9 % (37.0-47.0); Hemoglobin 12.5 g/dl (12.0-16.0); Imm Gran Abs Auto 0.04 X10*3/uL (0.00-0.03); Imm Gran Pct Auto 0.6 % (0.0-0.4); Immature Retic Fraction 4.5 % (3.0-15.9); Lymphocytes Absolute Auto 1.6 X10*3/uL (1.2-4.9); Lymphocytes Percent Auto 22.1 % (20-40); Mean Corpuscular Hemoglobin 30.4 pg (27.0-33.0); Mean Corpuscular Volume 92.2 fL (80.0-98.0); Mean Platelet Volume 10.5 fL (9.4-12.3); Monocytes Absolute Auto 0.9 X10*3/uL (0.1-1.2); Neutrophils Percent Auto 55.5 % (45-73); Platelet Count 251 X10*3/uL (160-400); Red Blood Count 4.11 X10*6/uL (4.20-5.50); Red Cell Distribution Width 14.8 % (11.0-16.0); Retic HGB Equivalent 35.2 pg (30.0-35.0); Reticulocytes Absolute 0.043 X10*6/uL (0.026-0.095); White Blood Count 7.3 X10*3/uL (4.8-10.8)
[2023-07-02 17:03] LABS: B Type Natriuretic Peptide 728 pg/mL (<100)
[2023-07-02 17:09] LABS: Alanine Aminotransferase 18 U/L (0-31); Albumin Level 3.8 g/dL (3.5-5.0); Alkaline Phosphatase 107 U/L (39-117); Anion Gap 13 (12-20); Aspartate Amino Transferase 22 U/L (5-31); Bilirubin Total 0.4 mg/dL (0.0-1.0); Blood Urea Nitrogen 30 mg/dL (9-16); Carbon Dioxide 28 mmol/L (22-29); Chloride 101 mmol/L (96-108); Estimated Glomerular Filt Rate 53; Glucose Random 249 mg/dL (60-115); Potassium 4.5 mmol/L (3.3-5.1); Sodium 137 mmol/L (135-145); Total Protein 6.7 g/dL (6.5-8.0)
[2023-07-02 17:20] LABS: Ferritin 106 ng/mL (10-250)
[2023-07-02 17:33] LABS: Folate 14.9 ng/mL (> or = 4.0); Vitamin B12 628 pg/mL (200-900)
== END 2023-07-02 16:07 | disposition home or self-care (01) ==
LOC: HO.LAB 16:06
PROVIDERS: PCP Internal Medicine; Visit Provider Internal Medicine
DX: E11.65 Type 2 diabetes mellitus with hyperglycemia (principal); I10 Essential (primary) hypertension; D50.9 Iron deficiency anemia, unspecified; Z79.4 Long term (current) use of insulin
CPT/HCPCS: 36415; 80053; 82607; 82728; 82746; 83880; 85025; 85045

== ENCOUNTER 2023-07-03 10:21 | Emergency (ER) | payer MEDICARE, SELFPAY ==
--- NOTE | ~2023-07-03 | XR_ITS ---
EXAMINATION: XR CHEST CLINICAL INFORMATION: Heart failure COMPARISON: Chest radiograph 09/14/2022 and multiple other radiographs TECHNIQUE: Frontal view of the chest was obtained. FINDINGS: The heart is enlarged. There is borderline upper zone redistribution suggesting mildly elevated left ventricular end-diastolic pressure. There is no evidence of interstitial or alveolar edema. I suspect there are trace bilateral pleural effusions. There is an ovoid opacity in the left midlung that was not present in 2020. On the prior CT from 06/03/2021 this can be seen and appears to represent lingular atelectasis/scarring. XR/XR chest 1V IMPRESSION: Cardiomegaly with borderline upper zone redistribution and trace pleural effusions suggesting mildly elevated left ventricular end-diastolic pressure. No evidence of pulmonary edema.
[2023-07-03 10:38] VITALS: BP 160/78; PULSE 80; RESP 18; TEMP 37.2; O2SAT 100; BMI 27.1
--- NOTE | 2023-07-03 14:41 | ECG_ITS ---
Test Reason : ABMORMAL LABS Blood Pressure : / mmHG Vent. Rate : 086 BPM Atrial Rate : 000 BPM P-R Int : 000 ms QRS Dur : 102 ms QT Int : 352 ms P-R-T Axes : 000 -51 067 degrees QTc Int : 421 ms Atrial fibrillation Left axis deviation Moderate voltage criteria for LVH, may be normal variant ( R in aVL , Riley product ) Inferior infarct , age undetermined Anterior infarct , age undetermined ST & T wave abnormality, consider lateral ischemia Abnormal ECG When compared with ECG of 13-OCT-2022 21:31, Inferior infarct is now Present QT has shortened Referred By: Aquilino Alvarez Electronically Signed By:Ulises Talavera
[2023-07-03 15:41] LABS: MANUAL DIFF FLAG NO
[2023-07-03 15:45] LABS: Basophils Absolute Auto 0.1 X10*3/uL (0.0-0.2); Basophils Percent Auto 1.3 % (0-2); Eosinophils Absolute Auto 0.4 X10*3/uL (0.0-0.4); Eosinophils Percent Auto 5.8 % (0-4); Hematocrit 40.1 % (37.0-47.0); Hemoglobin 13.3 g/dl (12.0-16.0); Imm Gran Abs Auto 0.03 X10*3/uL (0.00-0.03); Imm Gran Pct Auto 0.4 % (0.0-0.4); Lymphocytes Absolute Auto 1.5 X10*3/uL (1.2-4.9); Lymphocytes Percent Auto 20.7 % (20-40); Mean Corpuscular HGB Conc 33.2 g/dl (31.0-35.0); Mean Corpuscular Hemoglobin 30.3 pg (27.0-33.0); Mean Corpuscular Volume 91.3 fL (80.0-98.0); Mean Platelet Volume 9.7 fL (9.4-12.3); Monocytes Absolute Auto 0.8 X10*3/uL (0.1-1.2); Monocytes Percent Auto 10.8 % (2-11); Neutrophils Absolute Auto 4.3 x10*3/uL (2.0-8.3); Platelet Count 242 X10*3/uL (160-400); Red Blood Count 4.39 X10*6/uL (4.20-5.50); Red Cell Distribution Width 14.7 % (11.0-16.0); White Blood Count 7.1 X10*3/uL (4.8-10.8)
[2023-07-03 15:51] LABS: INTERNATIONAL NORM RATIO 1.2 (0.9-1.1); Prothrombin Time 14.4 SEC (11.1-13.3)
[2023-07-03 15:54] LABS: Partial Thromboplastin Time 32.8 SEC (26.0-36.8)
[2023-07-03 16:04] LABS: Alanine Aminotransferase 18 U/L (0-31); Albumin Level 3.9 g/dL (3.5-5.0); Alkaline Phosphatase 103 U/L (39-117); Anion Gap 14 (12-20); Aspartate Amino Transferase 19 U/L (5-31); Bilirubin Total 0.5 mg/dL (0.0-1.0); Blood Urea Nitrogen 26 mg/dL (9-16); Calcium 9.1 mg/dL (8.4-10.2); Carbon Dioxide 28 mmol/L (22-29); Chloride 102 mmol/L (96-108); Creatinine Clr Calc Pharmacy 35.2; Estimated Glomerular Filt Rate 59; Glucose Random 254 mg/dL (60-115); Potassium 4.3 mmol/L (3.3-5.1); Sodium 140 mmol/L (135-145); Total Protein 6.7 g/dL (6.5-8.0)
[2023-07-03 16:10] LABS: Troponin-I High Sensitivity 8.7 ng/L (<3.5-17.0)
[2023-07-03 16:17] LABS: B Type Natriuretic Peptide 460 pg/mL (<100)
[2023-07-03 17:18] VITALS: BP 196/94; PULSE 68; RESP 18; O2SAT 99
[2023-07-03 17:39] VITALS: BP 180/86; PULSE 115; RESP 18
--- NOTE | 2023-07-03 17:43 | ED.GENADULT ---
HPI - General Adult General Chief complaint: Recheck/Abnormal Lab/Rx Stated complaint: elevated bnp ? sent by cardio Time Seen by Provider: 07/03/23 17:17 History of Present Illness HPI narrative: The patient is an 87-year-old woman with a history of dementia who lives with her daughter. She has a history of atrial fibrillation. She was recently started on digoxin to help manage her atrial fibrillation. The patient's daughter, a retired pharmacist, was concerned over the last several days that the patient seemed somewhat more confused than usual. She contacted the cardiology office and yesterday had outpatient labs that showed a BNP of 728 which is considerably higher than the patient's usual BNP of something in the 400s. Apparently in discussion with the therapy technician the digoxin has already been held in the last dose was 2 days ago. The daughter, concerned about the rise in the BNP, brought the patient to the emergency room yesterday but the waiting room was so full they did not check in. She returns today. The daughter feels the patient is mildly confused compared to baseline. The patient is demented at baseline and this is a subtle distinction. The patient herself has no complaints. She denies headache, chest pain, shortness of breath, abdominal pain, nausea, vomiting, fever, sweats, chills. The patient was treated for UTI about 10 days ago. A urinalysis sent on June 21 grew pansensitive E coli. She took 7 days of ciprofloxacin 250 mg b.i.d.. Related Data Home Medications Medication Instructions Recorded Confirmed travoprost 0.004 % eye drops 1 drp ophthalmic (eye) BEDTIME 06/01/20 06/14/23 omeprazole 20 mg capsule,delayed 20 mg PO DAILY@0630 03/01/21 06/14/23 release acetaminophen 500 mg tablet 1,000 mg PO TID 08/17/21 06/14/23 glycerin (adult) 1 supp SC DAILY PRN Constipation 08/17/21 06/14/23 furosemide 40 mg tablet 40 mg PO .once or twice a day 10/11/22 06/14/23 cholecalciferol (vitamin D3) 25 25 mcg PO DAILY 01/01/23 06/14/23 mcg (1,000 unit) capsule ferrous sulfate-vitamin C 39 mg-75 tab PO 01/01/23 06/14/23 mg tablet glucose 4 gram chewable tablet 4 g PO Q15M PRN 01/01/23 06/14/23 (Dex4 Glucose) vitamins A,C,A-hfsg-wjgatm 4,296 1 cap PO BID 01/01/23 06/14/23 mcg-226 mg-90 mg capsule (PreserVision AREDS) metoprolol succinate 25 mg 25 mg PO DAILY PRN high BP 06/14/23 tablet,extended release 24 hr Previous Rx's Medication Instructions Recorded insulin lispro 100 unit/mL See Rx Instructions subcut TIDAC 02/01/22 subcutaneous pen (Humalog KwikPen #15 mL (U-100) Insulin) metoprolol succinate 100 mg 100 mg PO DAILY 90 days #90 tabs 08/09/22 tablet,extended release 24 hr simvastatin 10 mg tablet 10 mg PO BEDTIME #90 tabs 08/28/22 albuterol sulfate 90 mcg/actuation 2 puff inhalation Q6H PRN 09/14/22 aerosol inhaler (Ventolin HFA) shortness of breath or wheezing #8.5 grams levothyroxine 125 mcg tablet 125 mcg PO DAILY #90 tabs 10/09/22 lactulose 10 gram/15 mL oral 30 ml PO DAILY PRN constipation 10/24/22 solution #946 mL insulin glargine U-300 conc 300 12 unit (0.04 mL) subcut QAM #4.5 03/21/23 unit/mL (1.5 mL) subcutaneous pen mL (Toujeo SoloStar U-300 Insulin) hydralazine 10 mg tablet 10 mg PO ONCE PRN for blood 04/10/23 pressure #90 tabs pen needle, diabetic 32 gauge x #400 ea 04/19/23 (BD Eveline 2nd Gen Pen Needle) rivaroxaban 15 mg tablet (Xarelto) 15 mg PO QPM #90 tabs 05/03/23 flash glucose sensor (FreeStyle #1 ea 05/23/23 Madeline 14 Day Sensor kit) flash glucose sensor (FreeStyle #6 ea 05/23/23 Madeline 14 Day Sensor kit) ciprofloxacin HCl 250 mg tablet 250 mg PO BID #14 tabs 06/22/23 Allergies Allergy/AdvReac Type Severity Reaction Status Date / Time codeine Allergy Intermediate TACHYCARDIA Verified 06/14/23 10:23 nitrofurantoin [Macrobid] Allergy Unknown confusion Verified 06/14/23 10:23 pravastatin Allergy Unknown Unknown Verified 06/14/23 10:23 rosuvastatin [Crestor] Allergy Unknown Unknown Verified 06/14/23 10:23 Sulfa (Sulfonamide Allergy Unknown unknown Verified 06/14/23 10:23 Antibiotics) sulfamethoxazole Allergy Unknown Unknown Verified 06/14/23 10:23 [From Bactrim] trimethoprim [From Bactrim] Allergy Unknown Unknown Verified 06/14/23 10:23 amlodipine AdvReac Intermediate leg Verified 06/14/23 10:23 swelling PMFSH Past Medical History Medical History (Updated 07/03/23 @ 18:11 by Jai Albert MD) Persistent atrial fibrillation Left thigh pain Abdominal mass, LUQ (left upper quadrant) Iliotibial band syndrome of left side UTI (urinary tract infection) Herpes zoster Orthostatic hypotension Acute hyponatremia Weakness COVID-19 Breast asymmetry Atrial fibrillation with rapid ventricular response Hyperkalemia Essential hypertension Atherosclerotic cardiovascular disease Chronic heart failure with preserved ejection fraction (HFpEF) Iliotibial band syndrome of right side Disc degeneration, lumbar Cognitive dysfunction 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 Atrial fibrillation Osteopenia Hypothyroid Spinal stenosis of lumbar region Degenerative disc disease, lumbar Type 2 diabetes mellitus with hyperglycemia Surgical History History of removal of cyst History of appendectomy History of eye surgery History of cataract surgery History of cholecystectomy History of section History of knee replacement History of hip replacement Family History Family History Father CVD (cardiovascular disease) Mother CVD (cardiovascular disease) Stroke Social History Social History Household Members: None Household Members Other:: son comes 3 days a week, daughter lives 5 minutes away visits frequently Housing: House Do you presently have visiting nurse or other home services: Yes Alcohol intake: never Comment: post cardioversion Patient Tobacco Use Status: Former Tobacco user Tobacco use type: Cigarette Years Smoked: <1 Smoked in Last 30 Days: No e-Cigarette/Vaping Use: Former Use Second Hand Smoke Exposure: No Use of substances other than those prescribed or required for medical reasons: No Advance Directives: Yes Advance Directives on File: Yes Advance Directives Date on File: 08/29/21 service: No Current occupational status: retired Cognitive needs: Yes (Walker) Hearing needs: No Vision needs: Yes Physical Exam ED Vital Signs: Vital Signs - 24 hr 07/03/23 10:38 07/03/23 17:18 07/03/23 17:39 Temperature 98.9 F Pulse Rate 80 68 115 H Respiratory Rate 18 18 18 Blood Pressure 160/78 H 196/94 H 180/86 H Pulse Oximetry 100 99 Oxygen Delivery Method Room Air Room Air 07/03/23 18:26 Temperature 98.7 F Pulse Rate 99 Respiratory Rate 18 Blood Pressure 180/86 H Pulse Oximetry 98 Oxygen Delivery Method Room Air BMI result Body Mass Index 27.1 Const Other: The patient is awake and alert, pleasant and cooperative. She does not seem in any distress. She seems pleasantly demented. HENMT Other: Face is symmetrical. Mucous membranes moist Eyes Other: Pupils are round equal, conjunctivae clear Neck Other: No JVD Resp Effort & Inspection: normal respiratory effort Auscultation: clear to auscultation bilaterally Cardio Other: The patient has a new regular rate and rhythm, no definite murmur GI Other: Abdomen is soft and nontender Skin Other: Skin is dry and unremarkable Neuro Other: The patient is awake and alert. Face is symmetrical. Eye movements intact. Speech is clear. She moves her extremities symmetrically. She has a very vague affect consistent with dementia but otherwise has no focal findings. Extrem Other: No peripheral edema Medical Decision Making Medical Decision Making MDM Narrative: The patient is an 87-year-old woman with multiple medical problems and dementia who was brought to the hospital by her daughter. The daughter feels the patient is not quite her usual self. Patient was recently treated for UTI with a course of ciprofloxacin. Additionally the patient recently was started on digoxin to help manage her atrial fibrillation although this was stopped a couple of days ago after the daughter spoke to the patient's therapy technician. The daughter was also concerned that outpatient labs yesterday showed a BNP of over 700 which is higher than usual for the patient. Clinically the patient does not seem obviously ill. The BNP today is 460. Yesterday it was 720. Other testing today is unremarkable including a urinalysis. The patient looks quite well. I explained to the patient's daughter that I did not find any acute process requiring intervention. Presumably the rise in the patient's BNP was related to the digoxin. The digoxin has been stopped already. The patient looks well on her workup is quite reassuring. She will be discharged with her daughter to resume her regular medications and will not resume digoxin Lab Data 07/03/23 15:36 07/03/23 15:36 Labs: Lab Results 07/03/23 07/03/23 Range/Units 15:36 17:38 WBC 7.1 (4.8-10.8) X10*3/uL RBC 4.39 (4.20-5.50) X10*6/uL Hgb 13.3 (12.0-16.0) g/dl Hct 40.1 (37.0-47.0) % MCV 91.3 (80.0-98.0) fL MCH 30.3 (27.0-33.0) pg MCHC 33.2 (31.0-35.0) g/dl RDW 14.7 (11.0-16.0) % Plt Count 242 (160-400) X10*3/uL MPV 9.7 (9.4-12.3) fL Immature Gran % (Auto) 0.4 (0.0-0.4) % Neut % (Auto) 61.0 (45-73) % Lymph % (Auto) 20.7 (20-40) % [place] % (Auto) 10.8 (2-11) % Eos % (Auto) 5.8 H (0-4) % Baso % (Auto) 1.3 (0-2) % Lymph # (Auto) 1.5 (1.2-4.9) X10*3/uL [place] # (Auto) 0.8 (0.1-1.2) X10*3/uL Eos # (Auto) 0.4 (0.0-0.4) X10*3/uL Baso # (Auto) 0.1 (0.0-0.2) X10*3/uL Abs Immat Gran (auto) 0.03 (0.00-0.03) X10*3/uL Absolute Neuts (auto) 4.3 (2.0-8.3) x10*3/uL Absolute Nucleated RBC 0.000 (0.0-0.012) X10*3/uL Nucleated RBC % (auto) 0.0 (0.0-0.2) /100WBC PT 14.4 H (11.1-13.3) SEC INR 1.2 H (0.9-1.1) APTT 32.8 (26.0-36.8) SEC Sodium 140 (135-145) mmol/L Potassium 4.3 (3.3-5.1) mmol/L Chloride 102 (96-108) mmol/L Carbon Dioxide 28 (22-29) mmol/L Anion Gap 14 (12-20) BUN 26 H (9-16) mg/dL Creatinine 0.91 (0.5-1.4) mg/dL Estim Creat Clear Calc 35.2 Estimated GFR 59 Random Glucose 254 H (60-115) mg/dL Calcium 9.1 (8.4-10.2) mg/dL Total Bilirubin 0.5 (0.0-1.0) mg/dL AST 19 (5-31) U/L ALT 18 (0-31) U/L Alkaline Phosphatase 103 (39-117) U/L Troponin I High Sens 8.7 (<3.5-17.0) ng/L C-Reactive Protein 0.35 (< or = 0.50) mg/dL B-Natriuretic Peptide 460 H (<100) pg/mL Total Protein 6.7 (6.5-8.0) g/dL Albumin 3.9 (3.5-5.0) g/dL Urine Color Yellow Urine Appearance Clear Urine pH 5.5 (5.0-9.0) Ur Specific Kirk 1.020 (1.005-1.025) Urine Protein 30 (1+) H (Neg-Trace) mg/dL Urine Glucose (UA) 500 H (Negative) mg/dL Urine Ketones Negative (Negative) mg/dL Urine Blood Negative (Negative) Urine Nitrite Negative (Negative) Ur Leukocyte Esterase Negative (Negative) Urine RBC 0-2 (0-2) /HPF Urine WBC 0-5 (0-5) /HPF Ur Squamous Epith Cells 0-2 (0-2) /HPF Urine Bacteria None Seen (None Seen) Hyaline Casts 0-2 (0-2) /LPF Discharge Plan Discharge Clinical Impression: Weakness Patient Disposition: Home, Self-Care Additional Instructions: Your testing in the emergency room today is essentially very reassuring. Please continue her regular medications. Follow up with your regular doctor and your therapy technician. Return to the emergency room if worse. Prescriptions: No Action insulin lispro [Humalog KwikPen Insulin] 100 unit/mL insulin pen See Rx Instructions subcut TIDAC Qty: 15 12RF Protocol: Insulin Correction Scale Less than or equal to 110 ---- Give (units): 0 111 to 150 Give (units): 0 151 to 200 Give (units): 2 201 to 250 Give (units): 4 251 to 300 Give (units): 6 301 to 350 Give (units): 8 Greater than 350 Give (units): 10 Call MD if Blood Glucose > : 350 Rx Instructions: 6 units subcutaneously 3 times a day before meals; or as directed according to sliding scale metoprolol succinate 100 mg tablet extended release 24 hr 100 mg PO DAILY 90 Days Qty: 90 3RF simvastatin 10 mg tablet 10 mg PO BEDTIME Qty: 90 3RF levothyroxine 125 mcg tablet 125 mcg PO DAILY Qty: 90 3RF lactulose 10 gram/15 mL solution 30 ml PO DAILY PRN (Reason: constipation) Qty: 946 1RF PreserVision AREDS 4,296 mcg-226 mg-90 mg capsule 1 cap PO BID cholecalciferol (vitamin D3) 25 mcg (1,000 unit) capsule 25 mcg PO DAILY ferrous sulfate-vitamin C 39-75 mg tablet PO glucose [Dex4 Glucose] 4 gram tablet,chewable 4 g PO Q15M PRN Rx Instructions: until symptoms of low blood sugar are controlled Everette Clarkar U-300 Insulin 300 unit/mL (1.5 mL) insulin pen 12 unit subcut QAM Qty: 4.5 3RF Rx Instructions: or as directed hydralazine 10 mg tablet 10 mg PO ONCE PRN (Reason: for blood pressure) Qty: 90 1RF (DME) pen needle, diabetic [BD Eveline 2nd Gen Pen Needle] 32 gauge x 5/32 needle See Rx Instructions .ROUTE .COMPLEX Qty: 400 3RF Dose Instruction: USEN TO INJECT INSULIN FOUR TIMES DAILY Rx Instructions: USEN TO INJECT INSULIN FOUR TIMES DAILY Xarelto 15 mg tablet 15 mg PO QPM Qty: 90 3RF (DME) FreeStyle Madeline 14 Day Sensor Kit See Rx Instructions .ROUTE .MEDSUPPLY Qty: 1 6RF Rx Instructions: Dx: E11.65 As directed, 14 days (DME) FreeStyle Madeline 14 Day Sensor Kit See Rx Instructions .Route Qty: 6 3RF Rx Instructions: As directed ciprofloxacin HCl 250 mg tablet 250 mg PO BID Qty: 14 0RF travoprost 0.004 % drops 1 drp ophthalmic (eye) BEDTIME omeprazole 20 mg capsule,delayed release(DR/EC) 20 mg PO DAILY@0630 acetaminophen 500 mg Tablet 1,000 mg PO TID glycerin (adult) Suppository 1 supp SC DAILY PRN (Reason: Constipation) albuterol sulfate [Ventolin HFA] 90 mcg/actuation HFA aerosol inhaler 2 puff inhalation Q6H PRN (Reason: shortness of breath or wheezing) Qty: 8.5 0RF furosemide 40 mg tablet 40 mg PO .once or twice a day metoprolol succinate 25 mg tablet extended release 24 hr 25 mg PO DAILY PRN (Reason: high BP ) Rx Instructions: Start w one tab daily in the PM; if BP does not respond add 25mg or 12.5mg at night. Referrals: Po,Monique Wesley MD [Primary Care Provider] - (weakness) Gene Morrow MD [Physician] - (weakness) Interventions: ED Discharge Assessment Last Done: 07/03/23 18:26 Discharge Date/Time: 07/03/23 18:36
[2023-07-03 17:46] LABS: Appearance Urine Clear; Color Urine Yellow; Glucose Urine UA 500 mg/dL (Negative); Leukocyte Esterase Urine Negative (Negative); Nitrite Urine Negative (Negative); PH 5.5 (5.0-9.0); UMIC TRIGGER UACC YES; Urine Blood Negative (Negative); Urine Ketones Negative (Negative); Urine Protein 30 (1+) mg/dL (Neg-Trace)
[2023-07-03 17:52] LABS: Bacteria Urine None Seen (None Seen); Hyaline Casts Urine 0-2 /LPF (0-2); Squamous Epithelial Cell Urine 0-2 /HPF (0-2); WBC Urine 0-5 /HPF (0-5)
[2023-07-03 17:53] LABS: RBC Urine 0-2 /HPF (0-2)
[2023-07-03 18:00] LABS: C Reactive Protein 0.35 mg/dL (< or = 0.50)
[2023-07-03 18:26] VITALS: BP 180/86; PULSE 99; RESP 18; TEMP 37.1; O2SAT 98
== END 2023-07-03 18:36 | disposition home or self-care (01) ==
PROVIDERS: Physician Assistant; Emergency Provider Emergency Medicine; PCP Internal Medicine
DX: R53.1 Weakness (principal); I48.91 Unspecified atrial fibrillation; R79.89 Other specified abnormal findings of blood chemistry; R06.02 Shortness of breath; Z79.899 Other long term (current) drug therapy; Z87.891 Personal history of nicotine dependence
CPT/HCPCS: 36415; 71045; 80053; 81001; 83880; 84484; 85025; 85610; 85730; 86140; 93005; 99283; 99284

== ENCOUNTER → 2023-07-03 14:41 | Outpatient (BNV) | payer MEDICARE, SELFPAY | PROVIDERS: Emergency Provider Emergency Medicine; PCP Internal Medicine; Visit Provider Internal Medicine Cardiovascular Disease | DX: I48.91 Unspecified atrial fibrillation (principal) | CPT/HCPCS: 93010 ==

== ENCOUNTER 2023-07-12 15:39 | Outpatient (AMB) | payer MEDICARE, SELFPAY ==
--- NOTE | 2023-07-12 15:40 | A.OFFPC_ITS ---
Intake Visit Reasons: ER Follow Up Power Trans[employer] Supervisor Required: No Allergies codeine Allergy (Intermediate, Verified 07/12/23 15:42) TACHYCARDIA nitrofurantoin [Macrobid] Allergy (Unknown, Verified 07/12/23 15:42) confusion pravastatin Allergy (Unknown, Verified 07/12/23 15:42) Unknown rosuvastatin [Crestor] Allergy (Unknown, Verified 07/12/23 15:42) Unknown Sulfa (Sulfonamide Antibiotics) Allergy (Unknown, Verified 07/12/23 15:42) unknown sulfamethoxazole [From Bactrim] Allergy (Unknown, Verified 07/12/23 15:42) Unknown trimethoprim [From Bactrim] Allergy (Unknown, Verified 07/12/23 15:42) Unknown amlodipine Adverse Reaction (Intermediate, Verified 07/12/23 15:42) leg swelling Tobacco use date assessed: 07/12/23 Last assessed Fall Risk: 07/12/23 Dental Screening Dental Screen Date: 06/11/23 HPI ER Follow Up HPI Details 87-year-old female with diabetes mellitu s hypothyroidism atrial fibrillation congestive heart failure atherosclerotic heart disease hypertension and hypercholesterolemia last seen in June 2023. ER visit recently due to tiredness recently started on digoxin noted BNP to be 728. This has come down on repeat testing in the hospital. Patient was discharged after that. Review of the notes in June 13 patient was seen by Cardiology advise added for digoxin but was later on taken off. [facility] Medical History (Updated 07/05/23 @ 05:32 by Sarah Cohen) Persistent atrial fibrillation Left thigh pain Abdominal mass, LUQ (left upper quadrant) Iliotibial band syndrome of left side UTI (urinary tract infection) Herpes zoster Orthostatic hypotension Acute hyponatremia Weakness COVID-19 Breast asymmetry Atrial fibrillation with rapid ventricular response Hyperkalemia Essential hypertension Atherosclerotic cardiovascular disease Chronic heart failure with preserved ejection fraction (HFpEF) Iliotibial band syndrome of right side Disc degeneration, lumbar Cognitive dysfunction 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 Atrial fibrillation Osteopenia Hypothyroid Spinal stenosis of lumbar region Degenerative disc disease, lumbar Type 2 diabetes mellitus with hyperglycemia Surgical History History of removal of cyst History of appendectomy History of eye surgery History of cataract surgery History of cholecystectomy History of section History of knee replacement History of hip replacement Family History Father CVD (cardiovascular disease) Mother CVD (cardiovascular disease) Stroke Social History Household Members: None Household Members Other:: son comes 3 days a week, daughter lives 5 minutes away visits frequently Housing: House Do you presently have visiting nurse or other home services: Yes Alcohol intake: never Comment: post cardioversion Patient Tobacco Use Status: Former Tobacco user Tobacco use type: Cigarette Years Smoked: <1 e-Cigarette/Vaping Use: Former Use Second Hand Smoke Exposure: No Advance Directives Date on File: 08/29/21 service: No Current occupational status: retired Cognitive needs: Yes (Walker) Hearing needs: No Vision needs: Yes Questionnaire Thrive Questionnaire Date Thrive assessed: 06/11/23 AUDIT C Alcohol Use Questionnaire (AUDIT-C) 1. How often do you have a drink containing alcohol?: Never Total Score: 0 DILIP-7 AMB Questionnaire DILIP-7 Date DILIP - 7 assessed: 06/11/23 Source: Developed by Drs. Akbar Rocha, Theodora Huddleston, Woo Garcia and colleagues, with an educational cesia from [email or web address]. Physical exam (Primary Care) Tobacco/Smoking Status: Tobacco use Status Tobacco use date assessed 07/12/23 07/12/23 15:42 Patient Tobacco Use Status Former Tobacco user 07/12/23 15:42 Tobacco use type Cigarette 07/12/23 15:42 e-Cigarette/Vaping Use Former Use 07/12/23 15:42 Thrive Assessment: Date of Thrive Assessment Date Thrive assessed 06/11/23 07/12/23 15:42 Telehealth Telehealth Location of provider rendering services: practice address Location of patient: address on file Patient Identification confirmed using: Name, : Yes Telehealth method: video (iphone ) Patient verbally consented to treatment: Yes Patient verbally consented to billing insurance company: Yes Patient informed of any privacy concerns related to visit: Yes Minutes spent on Phone/Video with Pt.: 25 Assessment and Plan Assessment & Plan (1) Persistent atrial fibrillation: Code(s): I48.19 - Other persistent atrial fibrillation Plan: Continue with anticoagulation. advised to increase metoprolol 25 mg additional at night. (2) Atherosclerotic cardiovascular disease: Code(s): I25.10 - Atherosclerotic heart disease of [place] coronary artery without angina pectoris Plan: Control the cholesterol, weight, blood pressure, diabetes (3) Chronic heart failure with preserved ejection fraction (HFpEF): Code(s): I50.32 - Chronic diastolic (congestive) heart failure Plan: Continue with the diuretic weigh daily Orders: Orders CA echo transthoracic complete Today I48.19 - Other persistent atrial fibrillation Coding Level of Care Code Est Pt Level 4 (49099) Diagnoses Persistent atrial fibrillation I48.19 Atherosclerotic cardiovascular disease I25.10 Chronic heart failure with preserved ejection fraction (HFpEF) I50.32
== END 2023-07-12 17:30 | disposition home or self-care (01) ==
LOC: HO.HMGH 15:39
PROVIDERS: PCP Internal Medicine; Visit Provider Internal Medicine
DX: I48.19 Other persistent atrial fibrillation (principal); I25.10 Atherosclerotic heart disease of native coronary artery without angina pectoris; I50.32 Chronic diastolic (congestive) heart failure
CPT/HCPCS: 99214

== ENCOUNTER → 2023-08-10 14:47 | Outpatient (REF) | payer MEDICARE, SELFPAY ==
--- NOTE | 2023-08-10 14:50 | CA_ITS ---
Transthoracic Echocardiogram Patient (Last, First, Middle): Gerri Sanchez R Gender: Female Date of : 1935 Age: 87 Procedure Date: 08/10/2023 Procedure Type: Transthoracic Echocardiogram Location: OP Height: 149.86 cm Weight: 59.88 kg BSA: 1.55 m2 Heart Rate: 110 bpm BP: 178 / 80 mmHg Manager Technical Services: SB Referring MD: Monique White MD Symptoms: I48.19 - Other persistent atrial fibrillation Study Quality: Adequate ECG Rhythm: Atrial Fibrillation Conclusions: - The left ventricular systolic function is moderately decreased. The calculated ejection fraction is 38% by biplane method. - The basal inferior segment is akinetic. - There is mild aortic valve stenosis. - Mild pulmonary hypertension is present. Findings Left Ventricle Normal left ventricular cavity size. There is normal left ventricular wall thickness. The left ventricular systolic function is moderately decreased. The calculated ejection fraction is 38% by biplane method. There is moderate global hypokinesis. Diastolic function is indeterminate on the basis of available data. Wall Motion Rest Echo Findings The basal inferior segment is akinetic. Right Ventricle Normal right ventricular cavity size. There is moderately decreased right ventricular systolic function. Atria The left atrium is mildly dilated. The right atrium is moderately dilated. Aortic Valve There is mild calcification of the aortic valve. There is mild aortic valve stenosis. There is no aortic valve regurgitation. Mitral Valve There is mild mitral annular calcification. There is mild mitral valve regurgitation. There is no mitral valve stenosis. Pulmonic Valve The pulmonic valve is likely normal. Tricuspid Valve There is mild tricuspid valve regurgitation. Mild pulmonary hypertension is present. Great Vessels The asc aorta is normal in size. Venous The inferior vena cava is normal in size and collapses less than 50% with inspiration. Pericardium/Pleural There is a small loculated pericardial effusion overlying the right atrium. Prior Study Comparison Changes noted compared to prior study dated: 07/05/2021. LVEF is diminished. Measurements 2D Linear Measurements IVSd: 0.84 0.6-0.9/0.6-1.0 cm LVIDd: 4.04 3.9-5.3/4.2-5.9 cm LVIDd Index: 2.61 2.4-3.2/2.2-3.1 cm/m2 LVIDs: 3.39 2.0-3.6 cm LVPWd: 0.98 0.7-1.1 cm LA Diam: 3.80 2.7-3.8/3.0-4.0 cm LAIDs Index: 2.45 1.5-2.3 cm/m2 LV Mass: 141.13 67-162/88-224 g LV Mass Index: 91.05 43-95/49-115 g/m2 LVOT Diam: 2.00 3.0+(-)1.3 cm 2D Systolic Function EF 4C: 36.70 >55% EF 2C: 37.40 >55% EF BiP: 38.30 >55% Mitral Valve MV Pk E: 1.04 Aortic Valve AoV Pk Nick: 1.81 AoV Mn Nick: 1.35 AoV VTI: 0.32 AoV Pk Grad: 13.00 Aov Mn Grad: 8.00 ZECHARIAH Cont.VTI: 1.30 LVOT LVOT Pk Nick: 0.82 LVOT Mn Nick: 0.59 LVOT VTI: 0.13 LVOT Pk Grad: 3.00 LVOT Mn Grad: 2.00 LVOT Diam: 2.00 LVOT Area: 3.14 Diastolic Function MV Pk E: 1.04 Right Ventricle TAPSE (mm): 9.30 TVS' Nick: 6.75 Tricuspid Valve TR Pk Nick: 2.58 TR Pk Grad: 27.00 RA Press: 15.00 RVSP: 42.00 Great Vessels Aorta Sinus of Valsalva: 2.80 2.0-3.5 cm Ao Asc: 3.10 2.1-3.4 cm Pulmonary Valve PV Pk Nick: 0.58 Peak PV Grad: 1.00 Updated in Other Vendor System with Status of Final Gene Morrow MD electronically signed on 08/12/2023 11:20:50 AM with status of Final
== END ==
LOC: HO.CARD 14:47
PROVIDERS: PCP Internal Medicine; Visit Provider Internal Medicine
DX: I48.19 Other persistent atrial fibrillation (principal)
CPT/HCPCS: 93306

== ENCOUNTER → 2023-08-10 14:50 | Outpatient (BNV) | payer MEDICARE, SELFPAY | PROVIDERS: PCP Internal Medicine; Visit Provider Internal Medicine | DX: I35.0 Nonrheumatic aortic (valve) stenosis (principal); I34.0 Nonrheumatic mitral (valve) insufficiency; I36.1 Nonrheumatic tricuspid (valve) insufficiency | CPT/HCPCS: 93306 ==

== ENCOUNTER → 2023-09-06 11:42 | Outpatient (REF) | payer MEDICARE, SELFPAY ==
--- NOTE | 2023-09-06 11:47 | HM_ITS ---
Conclusion : 1) Patient was monitored for total of 2 days and 22 hours 2) Baseline rhythm is atrial fibrillation with averahe HR of 81 bpm with good rate control 3) No significant pauses 4) No patient reported events MTDD
== END ==
LOC: HO.CARD 11:42
PROVIDERS: PCP Internal Medicine; Visit Provider Internal Medicine
DX: I48.19 Other persistent atrial fibrillation (principal)
CPT/HCPCS: 93242

== ENCOUNTER → 2023-09-06 11:47 | Outpatient (BNV) | payer MEDICARE, SELFPAY | PROVIDERS: PCP Internal Medicine; Visit Provider Internal Medicine Cardiovascular Disease | DX: I48.91 Unspecified atrial fibrillation (principal) | CPT/HCPCS: 93244 ==

== ENCOUNTER 2023-09-14 11:32 | Outpatient (REF) | payer MEDICARE, SELFPAY ==
[2023-09-14 12:05] LABS: MANUAL DIFF FLAG NO
[2023-09-14 12:32] LABS: Basophils Absolute Auto 0.1 X10*3/uL (0.0-0.2); Basophils Percent Auto 1.2 % (0-2); Eosinophils Absolute Auto 0.3 X10*3/uL (0.0-0.4); Eosinophils Percent Auto 4.3 % (0-4); Hematocrit 38.8 % (37.0-47.0); Hemoglobin 12.8 g/dl (12.0-16.0); Imm Gran Abs Auto 0.03 X10*3/uL (0.00-0.03); Imm Gran Pct Auto 0.4 % (0.0-0.4); Lymphocytes Absolute Auto 1.3 X10*3/uL (1.2-4.9); Lymphocytes Percent Auto 17.6 % (20-40); Mean Corpuscular Hemoglobin 30.9 pg (27.0-33.0); Mean Corpuscular Volume 93.7 fL (80.0-98.0); Mean Platelet Volume 10.3 fL (9.4-12.3); Monocytes Absolute Auto 0.9 X10*3/uL (0.1-1.2); Monocytes Percent Auto 12.3 % (2-11); Neutrophils Absolute Auto 4.8 x10*3/uL (2.0-8.3); Neutrophils Percent Auto 64.2 % (45-73); Platelet Count 220 X10*3/uL (160-400); Red Blood Count 4.14 X10*6/uL (4.20-5.50); Red Cell Distribution Width 14.7 % (11.0-16.0); White Blood Count 7.5 X10*3/uL (4.8-10.8)
[2023-09-14 13:08] LABS: Alanine Aminotransferase 18 U/L (0-31); Albumin Level 4.1 g/dL (3.5-5.0); Alkaline Phosphatase 80 U/L (39-117); Anion Gap 11 (12-20); Aspartate Amino Transferase 22 U/L (5-31); Bilirubin Total 0.6 mg/dL (0.0-1.0); Blood Urea Nitrogen 24 mg/dL (9-16); Calcium 9.7 mg/dL (8.4-10.2); Carbon Dioxide 32 mmol/L (22-29); Chloride 99 mmol/L (96-108); Estimated Glomerular Filt Rate 44; Glucose Random 189 mg/dL (60-115); Iron 75 mcg/dL (30-160); Percent Iron Saturation 31 % (15-50); Potassium 4.4 mmol/L (3.3-5.1); Sodium 138 mmol/L (135-145); Total Iron Binding Capacity 242 mcg/dL (228-428); Total Protein 6.9 g/dL (6.5-8.0); Unsaturated Iron Binding 167 ug/dL
== END 2023-09-14 11:33 | disposition home or self-care (01) ==
LOC: HO.LAB 11:32
PROVIDERS: PCP Internal Medicine; Visit Provider Internal Medicine
DX: R19.7 Diarrhea, unspecified (principal)
CPT/HCPCS: 36415; 80053; 83540; 85025

== ENCOUNTER 2023-09-17 11:05 | Outpatient (AMB) | payer MEDICARE, SELFPAY ==
[2023-09-17 11:06] VITALS: BP 136/68; PULSE 69; O2SAT 100; BMI 27.3
--- NOTE | 2023-09-17 11:06 | A.OFFPC_ITS ---
Vital Signs 09/17/23 11:06 Height 4 ft 11 in Weight 135 lb 0.2 oz BMI 27.3 BP 136/68 Blood Pressure Location Lt brachial Position Sitting Pulse 69 Pulse Source Pulse Oximeter Pulse Oximetry (%) 100 Oxygen Delivery Method Room Air Intake Visit Reasons: 3 Month F/U Dog Licenser Required: No Allergies codeine Allergy (Intermediate, Verified 09/17/23 11:07) TACHYCARDIA nitrofurantoin [Macrobid] Allergy (Unknown, Verified 09/17/23 11:07) confusion pravastatin Allergy (Unknown, Verified 09/17/23 11:07) Unknown rosuvastatin [Crestor] Allergy (Unknown, Verified 09/17/23 11:07) Unknown Sulfa (Sulfonamide Antibiotics) Allergy (Unknown, Verified 09/17/23 11:07) unknown sulfamethoxazole [From Bactrim] Allergy (Unknown, Verified 09/17/23 11:07) Unknown trimethoprim [From Bactrim] Allergy (Unknown, Verified 09/17/23 11:07) Unknown amlodipine Adverse Reaction (Intermediate, Verified 09/17/23 11:07) leg swelling digoxin Adverse Reaction (Intermediate, Verified 09/17/23 11:07) Confusion Tobacco use date assessed: 09/17/23 Fall risk assessment: No Falls in past year Last assessed Fall Risk: 09/17/23 Dental Screening Dental Screen Date: 06/11/23 HPI 3 Month F/U HPI Details 88-year-old overweight female brittle di abetic with atrial fibrillation coronary artery disease congestive heart failure hypothyroidism hypertension obstructive sleep apnea hypercholesterolemia last seen in 07/28/2023. Review of the notes Holter done in September 05 showing baseline of atrial fibrillation with average heart rate of 81 no pauses. Echocardiogram done 08/2023The left ventricular systolic function is moderately decreased. The calculated ejection fraction is 38% by biplane method. - The basal inferior segment is akinetic . - There is mild aortic valve stenosis. - Mild pulmonary hypertension is present . [facility] Medical History (Updated 07/18/23 @ 19:56 by Monique White MD) Persistent atrial fibrillation Left thigh pain Abdominal mass, LUQ (left upper quadrant) Iliotibial band syndrome of left side UTI (urinary tract infection) Herpes zoster Orthostatic hypotension Acute hyponatremia Weakness COVID-19 Breast asymmetry Atrial fibrillation with rapid ventricular response Hyperkalemia Essential hypertension Atherosclerotic cardiovascular disease Chronic heart failure with preserved ejection fraction (HFpEF) Iliotibial band syndrome of right side Disc degeneration, lumbar Cognitive dysfunction 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 Atrial fibrillation Osteopenia Hypothyroid Spinal stenosis of lumbar region Degenerative disc disease, lumbar Type 2 diabetes mellitus with hyperglycemia Surgical History History of removal of cyst History of appendectomy History of eye surgery History of cataract surgery History of cholecystectomy History of section History of knee replacement History of hip replacement Family History Father CVD (cardiovascular disease) Mother CVD (cardiovascular disease) Stroke Social History Household Members: None Household Members Other:: son comes 3 days a week, daughter lives 5 minutes away visits frequently Housing: House Do you presently have visiting nurse or other home services: Yes Alcohol intake: never Comment: post cardioversion Patient Tobacco Use Status: Former Tobacco user Tobacco use type: Cigarette Years Smoked: <1 e-Cigarette/Vaping Use: Former Use Second Hand Smoke Exposure: No Advance Directives Date on File: 08/29/21 service: No Current occupational status: retired Cognitive needs: Yes (Walker) Hearing needs: No Vision needs: Yes Questionnaire PHQ-9 Over the last 2 weeks, how often have you been bothered by any of the following problems? 1. Little interest or pleasure in doing things: not at all 2. Feeling down, depressed, or hopeless: not at all 3. Trouble falling or staying asleep, or sleeping too much: not at all 4. Feeling tired or having little energy: not at all 5. Poor appetite or overeating: not at all 6. Feeling bad about yourself - or that you are a failure or have let yourself or your family down: not at all 7. Trouble concentrating on things, such as reading the newspaper or watching television: not at all 8. Moving or speaking so slowly that other people could have noticed. Or the opposite - being so fidgety or restless that you have been moving around a lot more than usual: not at all 9. Thoughts that you would be better off or of hurting yourself in some way: not at all Total score: 0 Depression Screening Interpretation: Negative Depression Screening Done: Yes Source: Developed by Drs. Akbar Rocha, Theodora Huddleston, Woo Garcia and colleagues, with an educational cesia from [employer]. Thrive Questionnaire Date Thrive assessed: 06/11/23 AUDIT C Alcohol Use Questionnaire (AUDIT-C) 1. How often do you have a drink containing alcohol?: Never 3. How often do you have six or more drinks on one occasion?: Never Total Score: 0 DILIP-7 AMB Questionnaire DILIP-7 Date DILIP - 7 assessed: 06/11/23 Source: Developed by Drs. Akbar Rocha, Woo Sosa and colleagues, with an educational cesia from [employer]. Physical exam (Primary Care) Vital Signs: Last Vital Signs Pulse 69 09/17/23 11:06 BP 136/68 09/17/23 11:06 Pulse Ox 100 09/17/23 11:06 Oxygen Delivery Method Room Air 09/17/23 11:06 BMI result Body Mass Index 27.3 Tobacco/Smoking Status: Tobacco use Status Tobacco use date assessed 09/17/23 09/17/23 11:14 Patient Tobacco Use Status Former Tobacco user 09/17/23 11:14 Tobacco use type Cigarette 09/17/23 11:14 e-Cigarette/Vaping Use Former Use 09/17/23 11:14 PHQ-9: PHQ-9 Score PHQ-9: Total score 0 09/17/23 11:15 Depression Screening Interpretation: Negative Thrive Assessment: Date of Thrive Assessment Date Thrive assessed 06/11/23 09/17/23 11:14 Const General: alert; No acute distress Eyes Conjunctivae: conjunctivae normal Resp Auscultation: clear to auscultation bilaterally Cardio Rate: regular rate Rhythm: regular rhythm GI Inspection: Yes normal to inspection Extrem General: Yes normal to inspection and No edema Results AMB Hemoglobin A1c AMB Hemoglobin A1c 10.0 % Last Edit by DANGELO Khan on 09/17/23 11:22 AMB Urinalysis, Automated UA Leukoctes 0 David/uL Last Edit by DANGELO Khan on 09/17/23 11:30 UA Nitrite Negative Last Edit by DANGELO Khan on 09/17/23 11:30 UA Urobilinogen 0.2 mg/dL Last Edit by DANGELO Khan on 09/17/23 11:30 UA Protein 0 mg/dL Last Edit by DANGELO Khan on 09/17/23 11:30 UA pH 5.0 Last Edit by JenDANGELO Melendez on 09/17/23 11:30 UA Blood 0 Vinicius/uL Last Edit by JenDANGELO Melendez on 09/17/23 11:30 UA Specific Bascom 1.010 Last Edit by DANGELO Khan on 09/17/23 11:30 UA Ketone Positive Last Edit by DANGELO Khan on 09/17/23 11:30 UA Bilirubin 0 mg/dL Last Edit by DANGELO Khan on 09/17/23 11:30 UA Glucose 500 mg/dL Last Edit by JenDANGELO Melendez on 09/17/23 11:30 Results Reviewed Results Reviewed: Laboratory Last Values Hgb A1c (Clinic) 10.0 % (4.0-6.0) H 09/17/23 10:04 Urine pH (Auto) 5.0 09/17/23 11:14 Specific Bascom (Auto) 1.010 09/17/23 11:14 Urine Protein (Auto) 0 mg/dL 09/17/23 11:14 Glucose (UA)(Auto) 500 mg/dL 09/17/23 11:14 Urine Ketones (Auto) Positive 09/17/23 11:14 Urine Blood (Auto) 0 Vinicius/uL 09/17/23 11:14 Urine Nitrite (Auto) Negative 09/17/23 11:14 Urine Bilirubin (Auto) 0 mg/dL 09/17/23 11:14 Urine Urobilinogen (Auto) 0.2 mg/dL 09/17/23 11:14 Leukocyte Esterase (Auto) 0 David/uL 09/17/23 11:14 Assessment and Plan Assessment & Plan (1) Persistent atrial fibrillation: Code(s): I48.19 - Other persistent atrial fibrillation Plan: Patient presently on anticoagulation with Xarelto and amiodarone continuing to monitor renal function (2) Hypercholesterolemia: Code(s): E78.00 - Pure hypercholesterolemia, unspecified Plan: Avoid fried foods, chicken skin, eggs, butter margarine, pastries and meat. Be it pork or beef they have a lot of cholesterol LDL goal of less than 70 and triglyceride of less than 150 on simvastatin 10 mg at bedtime last blood work 06/27/2023 at goal (3) Chronic kidney disease, stage 3b: Code(s): N18.32 - Chronic kidney disease, stage 3b Plan: Keep well hydrated and avoid NSAIDs (4) Essential hypertension: Code(s): I10 - Essential (primary) hypertension Plan: Continue with blood pressure medication. Decrease salt intake and exercise metoprolol 125 mg once a day and hydralazine 10 mg (5) Atherosclerotic cardiovascular disease: Code(s): I25.10 - Atherosclerotic heart disease of [place] coronary artery without angina pectoris Plan: Control the cholesterol, weight, blood pressure, diabetes on anticoagulation (6) Type 2 diabetes mellitus with hyperglycemia: Comment: With retinopathy Code(s): E11.65 - Type 2 diabetes mellitus with hyperglycemia Qualifiers: Diabetes mellitus [facility] insulin use: with [facility] use Qualified Code(s): E11.65 - Type 2 diabetes mellitus with hyperglycemia; Z79.4 - joint terminal attack controller (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 Patient follows up with endocrinology presently on Togaurav and Tai (7) Hypothyroid: Code(s): E03.9 - Hypothyroidism, unspecified Qualifiers: Hypothyroidism type: acquired Qualified Code(s): E03.9 - Hypothyroidism, unspecified Plan: Continue with thyroid medication Orders: Orders B Type Natriuretic Peptide 3 Months I50.32 - Chronic diastolic (congestive) heart failure AMB Hemoglobin A1c Today E11.65 - Type 2 diabetes mellitus with hyperglycemia, Z79.4 - joint terminal attack controller (current) use of insulin AMB Urinalysis Automated Today Z13.9 - Encounter for screening, unspecified Medications: New loratadine (Claritin) 10 mg PO DAILY 30 tabs 0RF I50.32 - Chronic diastolic (congestive) heart failure Refilled pen needle, diabetic (BD Eveline 2nd Gen Pen Needle) USEN TO INJECT INSULIN FOUR TIMES DAILY 400 ea 3RF E11.65 - Type 2 diabetes mellitus with hyperglycemia, Z79.4 - [facility] (current) use of insulin Discontinued hydralazine Discontinued Reason: Doctor's Order 10 mg PO ONCE PRN 90 tabs 1RF for blood pressure Coding Level of Care Code Est Pt Level 4 (77189) Complex EM visit Add On G2211 Diagnoses Persistent atrial fibrillation I48.19 Hypercholesterolemia E78.00 Chronic kidney disease, stage 3b N18.32 Essential hypertension I10 Atherosclerotic cardiovascular disease I25.10 Type 2 diabetes mellitus with hyperglycemia, with long-term current use of insulin E11.65; Z79.4 Diabetes mellitus [facility] insulin use: with [facility] use Acquired hypothyroidism E03.9 Hypothyroidism type: acquired
== END 2023-09-17 12:06 | disposition home or self-care (01) ==
PROVIDERS: PCP Internal Medicine; Visit Provider Internal Medicine
DX: I12.9 Hypertensive chronic kidney disease with stage 1 through stage 4 chronic kidney disease, or unspecified chronic kidney disease (principal); I48.19 Other persistent atrial fibrillation; N18.32 Chronic kidney disease, stage 3b; E11.65 Type 2 diabetes mellitus with hyperglycemia; Z79.4 Long term (current) use of insulin; E78.00 Pure hypercholesterolemia, unspecified; I25.10 Atherosclerotic heart disease of native coronary artery without angina pectoris; E03.9 Hypothyroidism, unspecified; Z13.9 Encounter for screening, unspecified
CPT/HCPCS: 81003; 83036; 99214; G2211

== ENCOUNTER 2023-11-14 13:15 | Outpatient (REF) | payer MEDICARE, SELFPAY ==
[2023-11-14 13:34] LABS: MANUAL DIFF FLAG NO
[2023-11-14 13:49] LABS: Basophils Absolute Auto 0.1 X10*3/uL (0.0-0.2); Basophils Percent Auto 0.4 % (0-2); Eosinophils Percent Auto 0.1 % (0-4); Hematocrit 38.8 % (37.0-47.0); Hemoglobin 13.1 g/dl (12.0-16.0); Imm Gran Abs Auto 0.15 X10*3/uL (0.00-0.03); Lymphocytes Absolute Auto 0.9 X10*3/uL (1.2-4.9); Lymphocytes Percent Auto 6.4 % (20-40); Mean Corpuscular HGB Conc 33.8 g/dl (31.0-35.0); Mean Corpuscular Hemoglobin 31.7 pg (27.0-33.0); Mean Corpuscular Volume 93.9 fL (80.0-98.0); Mean Platelet Volume 10.4 fL (9.4-12.3); Monocytes Percent Auto 6.6 % (2-11); Neutrophils Absolute Auto 12.5 x10*3/uL (2.0-8.3); Neutrophils Percent Auto 85.5 % (45-73); Platelet Count 248 X10*3/uL (160-400); Red Blood Count 4.13 X10*6/uL (4.20-5.50); Red Cell Distribution Width 15.7 % (11.0-16.0); White Blood Count 14.7 X10*3/uL (4.8-10.8)
[2023-11-14 14:14] LABS: Appearance Urine Turbid; Color Urine Yellow; Glucose Urine UA >=1000 mg/dL (Negative); Leukocyte Esterase Urine Moderate (2+) (Negative); Nitrite Urine Negative (Negative); PH 5.5 (5.0-9.0); Specific Gravity - Urine 1.015 (1.005-1.025); UMIC TRIGGER UA YES; Urine Blood Large (3+) (Negative); Urine Ketones Trace mg/dL (Negative); Urine Protein 100 (2+) mg/dL (Neg-Trace)
[2023-11-14 14:19] LABS: Bacteria Urine 4+ (None Seen); Hyaline Casts Urine 0-2 /LPF (0-2); RBC Urine >20 /HPF (0-2); Squamous Epithelial Cell Urine 0-2 /HPF (0-2); WBC Urine >50 /HPF (0-5)
[2023-11-14 14:27] LABS: Parathyroid Hormone Intact 167.8 pg/mL (8.7-77.1)
[2023-11-14 14:39] LABS: Albumin Level 4.3 g/dL (3.5-5.0); Anion Gap 16 (12-20); Blood Urea Nitrogen 27 mg/dL (9-16); Carbon Dioxide 29 mmol/L (22-29); Chloride 95 mmol/L (96-108); Estimated Glomerular Filt Rate 37; Magnesium 2.2 mg/dL (1.6-2.6); Phosphorus 3.5 mg/dL (2.7-4.5); Potassium 3.9 mmol/L (3.3-5.1); Sodium 136 mmol/L (135-145)
[2023-11-14 14:42] LABS: Vitamin D 25-OH Total 33.9 ng/mL (>30)
[2023-11-14 14:47] LABS: Creatinine Urine 47.01 mg/dL; Microalbum/Creatinine Ratio Ur 759.4 ug/mg cr (<30); Protein/Creatinine Ratio, Ur 1.38 (<0.2); Total Protein Urine Random 65 mg/dL (<12)
== END 2023-11-14 13:16 | disposition home or self-care (01) ==
LOC: HO.LAB 13:15
PROVIDERS: PCP Internal Medicine; Visit Provider Internal Medicine Nephrology
DX: Z13.89 Encounter for screening for other disorder (principal)
CPT/HCPCS: 36415; 80051; 81001; 82040; 82043; 82306; 82310; 82565; 82570; 83735; 83970; 84100; 84156; 84520; 85025

== ENCOUNTER 2023-11-16 19:14 | Inpatient (IN) | payer MEDICARE, SELFPAY ==
--- NOTE | ~2023-11-16 | CT_ITS ---
EXAMINATION: CT HEAD WITHOUT CONTRAST CLINICAL INFORMATION: Headache. On anticoagulation. COMPARISON: CT head dated 10/13/2022. TECHNIQUE: Contiguous axial imaging was performed from the skull base to vertex without intravenous administration of contrast. This CT examination was performed using dose optimization techniques as appropriate, variously including the following: *Automated exposure control *Adjustment of mA and/or kV according to patient size (this includes techniques or standardized protocols for targeted exams where dose is matched to indication/reason for exam; i.e. extremities or head) *Use of iterative reconstruction technique DLP: 579 mGy-cm FINDINGS: There is no acute intracranial hemorrhage. There is no evidence of acute/subacute cerebral or cerebellar infarction. There is no mass effect or midline shift. There is mild to moderate global cerebral volume loss, similar to the prior exam. No hydrocephalus. There is a stable enlarged retrocerebellar CSF space. This may represent an arachnoid cyst. The cavernous carotid arteries and intradural vertebral arteries are densely calcified. The ocular lenses are surgically absent. The mastoid air cells are well aerated. The visualized paranasal sinuses are clear. CT/CT head/brain wo IV con IMPRESSION: No acute intracranial abnormality. Mild to moderate global cerebral volume loss.
--- NOTE | ~2023-11-16 | XR_ITS ---
EXAMINATION: XR CHEST CLINICAL INFORMATION: Shortness of breath. COMPARISON: Chest radiograph dated 07/03/2023. TECHNIQUE: 2 views of the chest were obtained. FINDINGS: The cardiac silhouette remains mildly enlarged. There is calcific atherosclerotic disease of the aorta. There is a 1.8 cm oblong opacity within left lower lung, similar to the prior study. There is a small right pleural effusion. No pneumothorax. No acute osseous abnormality. XR/XR chest 2V IMPRESSION: Stable, mild cardiomegaly. The ovoid opacity in the left lower lung is stable. Small right pleural effusion.
[2023-11-16 19:55] VITALS: BP 132/65; PULSE 106; RESP 19; TEMP 36.8; O2SAT 97; BMI 26.1
--- NOTE | 2023-11-16 19:58 | ED.GENADULT ---
HPI - General Adult General Chief complaint: Urogenital-Female Stated complaint: UTi and fever Time Seen by Provider: 11/16/23 21:54 History of Present Illness ED Provider: Roosevelt GOMEZ narrative: The patient is an 88-year-old woman who lives at home. She has felt mildly unwell with some low-grade fevers for the past 3 days. Coincidentally she had an appointment with her regional business development manager, Dr. Oliva, yesterday. Two days ago in anticipation of the appointment she submitted a urine sample. On that same day the patient's daughter checked the patient portal and realized that the urinalysis was consistent with a possible UTI. The daughter called the doctor's office on Sunday (2 days ago) and received a prescription for cephalexin. The patient took a 1st dose of cephalexin on Sunday evening. Yesterday she had her appointment with Dr. Oliva and did not seem obviously ill and she was advised to continue the antibiotic. She took 3 doses of cephalexin yesterday and another dose this morning. Today the daughter feels that the patient has had chills and has been sleeping excessively and had a temperature of 100.9 degrees at home and therefore brought the patient to the emergency room. No significant cough. No nausea or vomiting. No abdominal pain. No back pain. Related Data Home Medications ?Medication ?Instructions ?Recorded ?Confirmed travoprost 0.004 % eye drops 1 drp ophthalmic (eye) BEDTIME 06/01/20 06/14/23 omeprazole 20 mg capsule,delayed 20 mg PO DAILY@0630 03/01/21 06/14/23 release acetaminophen 500 mg tablet 1,000 mg PO TID 08/17/21 06/14/23 glycerin (adult) 1 supp VT DAILY PRN Constipation 08/17/21 06/14/23 cholecalciferol (vitamin D3) 25 25 mcg PO DAILY 01/01/23 06/14/23 mcg (1,000 unit) capsule ferrous sulfate-vitamin C 39 mg-75 tab PO 01/01/23 06/14/23 mg tablet glucose 4 gram chewable tablet 4 g PO Q15M PRN 01/01/23 06/14/23 (Dex4 Glucose) vitamins A,C,O-jsvi-dqdufx 4,296 1 cap PO BID 01/01/23 06/14/23 mcg-226 mg-90 mg capsule (PreserVision AREDS) metoprolol succinate 25 mg 25 mg PO DAILY PRN high BP 06/14/23 tablet,extended release 24 hr Previous Rx's ?Medication ?Instructions ?Recorded insulin lispro 100 unit/mL See Rx Instructions subcut TIDAC 02/01/22 subcutaneous pen (Humalog KwikPen #15 mL (U-100) Insulin) albuterol sulfate 90 mcg/actuation 2 puff inhalation Q6H PRN 09/14/22 aerosol inhaler (Ventolin HFA) shortness of breath or wheezing #8.5 grams levothyroxine 125 mcg tablet 125 mcg PO DAILY #90 tabs 10/09/22 lactulose 10 gram/15 mL oral 30 ml PO DAILY PRN constipation 10/24/22 solution #946 mL insulin glargine U-300 conc 300 12 unit (0.04 mL) subcut QAM #4.5 03/21/23 unit/mL (1.5 mL) subcutaneous pen mL (Toujeo SoloStar U-300 Insulin) rivaroxaban 15 mg tablet (Xarelto) 15 mg PO QPM #90 tabs 05/03/23 flash glucose sensor (FreeStyle #1 ea 05/23/23 Madeline 14 Day Sensor kit) flash glucose sensor (FreeStyle #6 ea 05/23/23 Madeline 14 Day Sensor kit) diphenoxylate-atropine 2.5 1 tab PO BID PRN diarrhea #10 tabs 07/18/23 mg-0.025 mg tablet (Lomotil) furosemide 40 mg tablet 40 mg PO DIRECTED #180 tabs 07/24/23 simvastatin 10 mg tablet 10 mg PO BEDTIME #90 tabs 08/24/23 metoprolol succinate 100 mg 100 mg PO DAILY 90 days #90 tabs 08/30/23 tablet,extended release 24 hr loratadine 10 mg tablet (Claritin) 10 mg PO DAILY #30 tabs 09/17/23 pen needle, diabetic 32 gauge x #400 ea 09/17/23 (BD Eveline 2nd Gen Pen Needle) amiodarone 200 mg tablet 200 mg PO DAILY 90 days #90 tabs 10/29/23 Allergies Allergy/AdvReac Type Severity Reaction Status Date / Time codeine Allergy Intermediate TACHYCARDIA Verified 11/16/23 20:06 nitrofurantoin [Macrobid] Allergy Unknown confusion Verified 11/16/23 20:06 pravastatin Allergy Unknown Unknown Verified 11/16/23 20:06 rosuvastatin [Crestor] Allergy Unknown Unknown Verified 11/16/23 20:06 Sulfa (Sulfonamide Allergy Unknown unknown Verified 11/16/23 20:06 Antibiotics) sulfamethoxazole Allergy Unknown Unknown Verified 11/16/23 20:06 [From Bactrim] trimethoprim [From Bactrim] Allergy Unknown Unknown Verified 11/16/23 20:06 amlodipine AdvReac Intermediate leg Verified 11/16/23 20:06 swelling digoxin AdvReac Intermediate Confusion Verified 11/16/23 20:06 PMFSH Past Medical History Medical History (Updated 11/16/23 @ 23:49 by Asia Polk MD) Persistent atrial fibrillation Left thigh pain Abdominal mass, LUQ (left upper quadrant) Iliotibial band syndrome of left side UTI (urinary tract infection) Herpes zoster Orthostatic hypotension Acute hyponatremia Weakness COVID-19 Breast asymmetry Atrial fibrillation with rapid ventricular response Hyperkalemia Essential hypertension Atherosclerotic cardiovascular disease Chronic heart failure with preserved ejection fraction (HFpEF) Iliotibial band syndrome of right side Disc degeneration, lumbar Cognitive dysfunction 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 Atrial fibrillation Osteopenia Hypothyroid Spinal stenosis of lumbar region Degenerative disc disease, lumbar Type 2 diabetes mellitus with hyperglycemia Surgical History History of removal of cyst History of appendectomy History of eye surgery History of cataract surgery History of cholecystectomy History of section History of knee replacement History of hip replacement Family History Family History Father CVD (cardiovascular disease) Mother CVD (cardiovascular disease) Stroke Social History Social History Household Members: None Household Members Other:: son comes 3 days a week, daughter lives 5 minutes away visits frequently Housing: House Do you presently have visiting nurse or other home services: Yes Alcohol intake: never Comment: post cardioversion Patient Tobacco Use Status: Former Tobacco user Tobacco use type: Cigarette Years Smoked: <1 e-Cigarette/Vaping Use: Former Use Second Hand Smoke Exposure: No Advance Directives: Yes Advance Directives on File: Yes Advance Directives Date on File: 08/29/21 Do you have a plan to hurt others: No Plan service: No Current occupational status: retired Cognitive needs: Yes (Walker) Hearing needs: No Vision needs: Yes Physical Exam ED Vital Signs: Vital Signs - 24 hr 11/16/23 19:55 11/16/23 22:34 Temperature 98.2 F 100.4 F Pulse Rate 106 H Respiratory Rate 19 Blood Pressure 132/65 Pulse Oximetry 97 Oxygen Delivery Method Room Air BMI result Body Mass Index 26.1 Const Other: The patient is awake and alert. She is a frail 88-year-old. She looks chronically ill but not obviously in acute distress. HENMT Other: Face is symmetrical. Mucous membranes moist. Eyes Other: Pupils are round equal, conjunctivae are clear Neck Neck: Yes no JVD Resp Effort & Inspection: normal respiratory effort Auscultation: clear to auscultation bilaterally Cardio Other: The patient has an irregular rate and rhythm. No definite murmur. GI Other: Abdomen is soft and nontender Back/Spine/Pelvis Other: No CVA percussion tenderness Skin Other: Skin is dry and unremarkable Neuro Other: The patient is awake and alert. Face is symmetrical. Eye movements are intact. Speech is clear. She moves her extremities symmetrically. She seems grossly neurologically intact. Extrem Other: No calf swelling or asymmetry. Course Course Course Narrative: This is an RME: Additional HPI, ROS, PE not included below will be deferred to primary provider. RME assessment and note performed by: Willow Petit PA-C This is a 20-cbpu-lev-female, with a history of dementia, atrial fibrillation on Eliquis, UTI, diabetes, hypothyroidism, htn, who presents emergency department accompanied by her daughter, with concerns of increased confusion. Daughter reports that patient had blood work done on Sunday, and then was seen by Dr. Oliva on was diagnosed with a urinary tract infection. She was started on Keflex on Sunday night, has had 5 doses so far. Daughter reports that patient has had intermittent fevers over the last several days and not feeling well. Daughter also reports that she has had a difficult time getting her sugars under control, has been giving more Humalog more often. Patient also complaining of a headache. No recent falls. Plan: Labs, urinalysis, CT head, chest x-ray, further ER evaluation needed Medications Administered Discontinued Medications Generic Name Dose Route Start Last Admin Trade Name Debbie PRN Reason Stop Dose Admin Ceftriaxone Sodium 1 gm/ 50 mls @ 100 mls/hr 11/16/23 22:02 11/16/23 22:31 Sodium Chloride IV 11/16/23 22:31 100 mls/hr ONCE ONE Administration Sodium Chloride 1,000 mls @ 999 mls/hr 11/16/23 22:15 11/16/23 22:31 Ns IV 11/16/23 23:15 999 mls/hr .Q1H1M ENA Administration Medical Decision Making Medical Decision Making [facility] Narrative: The patient is an 88-year-old female who has not felt well for about 3 days. She has had some fevers at home. Here her rectal temperature was 100.4 degrees. She does not look clinically ill in her vital signs are otherwise stable. Her urinalysis is consistent with a UTI. I checked her urinalysis from 2 days ago which was similar. Unfortunately no culture was set up at that time. Blood cultures were drawn today. Lactate is minimally above normal at 2.1. The patient does not seem clinically septic. Nevertheless her white count has gone from 14,002 days ago to 17,000 today. Also her CRP is very high at 26. Given her significantly abnormal inflammatory markers and given her age of 88 I think hospitalization would be prudent. The patient was given 1 g of IV ceftriaxone. The patient will be admitted to the hospitalist service. Lab Data 11/16/23 21:23 11/16/23 21:23 Labs: Lab Results 11/16/23 11/16/23 11/16/23 Range/Units 21:09 21:23 21:25 WBC 17.1 H (4.8-10.8) X10*3/uL RBC 3.56 L (4.20-5.50) X10*6/uL Hgb 11.5 L (12.0-16.0) g/dl Hct 32.7 L (37.0-47.0) % MCV 91.9 (80.0-98.0) fL MCH 32.3 (27.0-33.0) pg MCHC 35.2 H (31.0-35.0) g/dl RDW 15.6 (11.0-16.0) % Plt Count 219 (160-400) X10*3/uL MPV 10.7 (9.4-12.3) fL Immature Gran % (Auto) 0.8 H (0.0-0.4) % Neut % (Auto) 85.9 H (45-73) % Lymph % (Auto) 4.6 L (20-40) % [place] % (Auto) 8.2 (2-11) % Eos % (Auto) 0.1 (0-4) % Baso % (Auto) 0.4 (0-2) % Lymph # (Auto) 0.8 L (1.2-4.9) X10*3/uL [place] # (Auto) 1.4 H (0.1-1.2) X10*3/uL Eos # (Auto) 0.0 (0.0-0.4) X10*3/uL Baso # (Auto) 0.1 (0.0-0.2) X10*3/uL Abs Immat Gran (auto) 0.14 H (0.00-0.03) X10*3/uL Absolute Neuts (auto) 14.7 H (2.0-8.3) x10*3/uL Absolute Nucleated RBC 0.000 (0.0-0.012) X10*3/uL Nucleated RBC % (auto) 0.0 (0.0-0.2) /100WBC PT 32.9 H D (11.1-13.3) SEC INR 2.7 H (0.9-1.1) APTT 34.4 (26.0-36.8) SEC VBG pH (7.32-7.43) VBG pCO2 mmHg VBG pO2 mmHg VBG HCO3 (22-26) mmol/L VBG O2 Saturation % VBG Base Excess mmol/L Sodium 132 L (135-145) mmol/L Potassium 3.8 (3.3-5.1) mmol/L Chloride 97 (96-108) mmol/L Carbon Dioxide 24 (22-29) mmol/L Anion Gap 15 (12-20) BUN 36 H (9-16) mg/dL Creatinine 1.36 (0.5-1.4) mg/dL Estim Creat Clear Calc 22.6 Estimated GFR 37 Random Glucose 279 H (60-115) mg/dL Lactic Acid 2.1 H* (0.5-2.0) mmol/L Calcium 8.5 D (8.4-10.2) mg/dL Magnesium 2.3 (1.6-2.6) mg/dL Total Bilirubin 0.8 (0.0-1.0) mg/dL Direct Bilirubin 0.4 (0.0-0.5) mg/dL AST 18 (5-31) U/L ALT 21 (0-31) U/L Alkaline Phosphatase 124 H (39-117) U/L Troponin I High Sens 11.2 (<3.5-17.0) ng/L C-Reactive Protein 26.97 H (< or = 0.50) mg/dL B-Natriuretic Peptide 502 H (<100) pg/mL Total Protein 6.7 (6.5-8.0) g/dL Albumin 3.7 (3.5-5.0) g/dL Lipase 15 (8-78) U/L Beta-Hydroxybutyrate (0.02-0.27) mmol/L Hold Green Top See Note Urine Color Urine Appearance Urine pH (5.0-9.0) Ur Specific [place] (1.005-1.025) Urine Protein (Neg-Trace) mg/dL Urine Glucose (UA) (Negative) mg/dL Urine Ketones (Negative) mg/dL Urine Blood (Negative) Urine Nitrite (Negative) Ur Leukocyte Esterase (Negative) Urine RBC (0-2) /HPF Urine WBC (0-5) /HPF Ur Squamous Epith Cells (0-2) /HPF Urine Bacteria (None Seen) Hyaline Casts (0-2) /LPF Influenza Type A (PCR) NEGATIVE (Negative) Influenza Type B (PCR) NEGATIVE (Negative) RSV RNA Qual (PCR) NEGATIVE (Negative) SARS-CoV-2 RNA (RT-PCR) NEGATIVE (Negative) 11/16/23 11/16/23 Range/Units 21:33 21:46 WBC (4.8-10.8) X10*3/uL RBC (4.20-5.50) X10*6/uL Hgb (12.0-16.0) g/dl Hct (37.0-47.0) % MCV (80.0-98.0) fL MCH (27.0-33.0) pg MCHC (31.0-35.0) g/dl RDW (11.0-16.0) % Plt Count (160-400) X10*3/uL MPV (9.4-12.3) fL Immature Gran % (Auto) (0.0-0.4) % Neut % (Auto) (45-73) % Lymph % (Auto) (20-40) % [place] % (Auto) (2-11) % Eos % (Auto) (0-4) % Baso % (Auto) (0-2) % Lymph # (Auto) (1.2-4.9) X10*3/uL [place] # (Auto) (0.1-1.2) X10*3/uL Eos # (Auto) (0.0-0.4) X10*3/uL Baso # (Auto) (0.0-0.2) X10*3/uL Abs Immat Gran (auto) (0.00-0.03) X10*3/uL Absolute Neuts (auto) (2.0-8.3) x10*3/uL Absolute Nucleated RBC (0.0-0.012) X10*3/uL Nucleated RBC % (auto) (0.0-0.2) /100WBC PT (11.1-13.3) SEC INR (0.9-1.1) APTT (26.0-36.8) SEC VBG pH 7.52 H (7.32-7.43) VBG pCO2 32 mmHg VBG pO2 73 mmHg VBG HCO3 26 (22-26) mmol/L VBG O2 Saturation 95.0 % VBG Base Excess 4.4 mmol/L Sodium (135-145) mmol/L Potassium (3.3-5.1) mmol/L Chloride (96-108) mmol/L Carbon Dioxide (22-29) mmol/L Anion Gap (12-20) BUN (9-16) mg/dL Creatinine (0.5-1.4) mg/dL Estim Creat Clear Calc Estimated GFR Random Glucose (60-115) mg/dL Lactic Acid (0.5-2.0) mmol/L Calcium (8.4-10.2) mg/dL Magnesium (1.6-2.6) mg/dL Total Bilirubin (0.0-1.0) mg/dL Direct Bilirubin (0.0-0.5) mg/dL AST (5-31) U/L ALT (0-31) U/L Alkaline Phosphatase (39-117) U/L Troponin I High Sens (<3.5-17.0) ng/L C-Reactive Protein (< or = 0.50) mg/dL B-Natriuretic Peptide (<100) pg/mL Total Protein (6.5-8.0) g/dL Albumin (3.5-5.0) g/dL Lipase (8-78) U/L Beta-Hydroxybutyrate 0.09 (0.02-0.27) mmol/L Hold Green Top Urine Color Yellow Urine Appearance Turbid Urine pH 5.5 (5.0-9.0) Ur Specific [place] 1.020 (1.005-1.025) Urine Protein 100 (2+) H (Neg-Trace) mg/dL Urine Glucose (UA) 500 H (Negative) mg/dL Urine Ketones Negative (Negative) mg/dL Urine Blood Large (3+) H (Negative) Urine Nitrite Negative (Negative) Ur Leukocyte Esterase Moderate (2+) H (Negative) Urine RBC >20 H (0-2) /HPF Urine WBC >50 H (0-5) /HPF Ur Squamous Epith Cells 0-2 (0-2) /HPF Urine Bacteria None Seen (None Seen) Hyaline Casts 3-5 (0-2) /LPF Influenza Type A (PCR) (Negative) Influenza Type B (PCR) (Negative) RSV RNA Qual (PCR) (Negative) SARS-CoV-2 RNA (RT-PCR) (Negative) Independent Interpretation I performed an independent interpretation of an: EKG Interpretation: EKG at 20:55 shows atrial fibrillation at 98 beats per minute. No significant change from previous. Discharge Plan Discharge Clinical Impression: Urinary tract infection with fever Patient Disposition: Admitted As Inpatient
--- NOTE | 2023-11-16 20:02 | ECG_ITS ---
Test Reason : UROGENATAL Blood Pressure : / mmHG Vent. Rate : 098 BPM Atrial Rate : 000 BPM P-R Int : 000 ms QRS Dur : 104 ms QT Int : 370 ms P-R-T Axes : 000 -45 059 degrees QTc Int : 472 ms Atrial fibrillation Left axis deviation Moderate voltage criteria for LVH, may be normal variant ( R in aVL , [place] product ) Anterior infarct (cited on or before 03-JUL-2023) Abnormal ECG When compared with ECG of 03-JUL-2023 15:20, No significant change was found Referred By: Willow Petit Electronically Signed By:MATTEO CARNEY MD
[2023-11-16 21:32] LABS: MANUAL DIFF FLAG NO
[2023-11-16 21:35] LABS: Basophils Absolute Auto 0.1 X10*3/uL (0.0-0.2); Basophils Percent Auto 0.4 % (0-2); Eosinophils Percent Auto 0.1 % (0-4); Hematocrit 32.7 % (37.0-47.0); Hemoglobin 11.5 g/dl (12.0-16.0); Imm Gran Abs Auto 0.14 X10*3/uL (0.00-0.03); Imm Gran Pct Auto 0.8 % (0.0-0.4); Lymphocytes Absolute Auto 0.8 X10*3/uL (1.2-4.9); Lymphocytes Percent Auto 4.6 % (20-40); Mean Corpuscular HGB Conc 35.2 g/dl (31.0-35.0); Mean Corpuscular Hemoglobin 32.3 pg (27.0-33.0); Mean Corpuscular Volume 91.9 fL (80.0-98.0); Mean Platelet Volume 10.7 fL (9.4-12.3); Monocytes Absolute Auto 1.4 X10*3/uL (0.1-1.2); Monocytes Percent Auto 8.2 % (2-11); Neutrophils Absolute Auto 14.7 x10*3/uL (2.0-8.3); Neutrophils Percent Auto 85.9 % (45-73); Platelet Count 219 X10*3/uL (160-400); Red Blood Count 3.56 X10*6/uL (4.20-5.50); Red Cell Distribution Width 15.6 % (11.0-16.0); White Blood Count 17.1 X10*3/uL (4.8-10.8)
[2023-11-16 21:42] LABS: INTERNATIONAL NORM RATIO 2.7 (0.9-1.1); Prothrombin Time 32.9 SEC (11.1-13.3)
[2023-11-16 21:43] LABS: Appearance Urine Turbid; Color Urine Yellow; Glucose Urine UA 500 mg/dL (Negative); Leukocyte Esterase Urine Moderate (2+) (Negative); Nitrite Urine Negative (Negative); PH 5.5 (5.0-9.0); UMIC TRIGGER UACC YES; Urine Blood Large (3+) (Negative); Urine Ketones Negative (Negative); Urine Protein 100 (2+) mg/dL (Neg-Trace)
[2023-11-16 21:45] LABS: Partial Thromboplastin Time 34.4 SEC (26.0-36.8)
[2023-11-16 21:48] LABS: Lactic Acid 2.1 mmol/L (0.5-2.0)
[2023-11-16 21:50] LABS: Alanine Aminotransferase 21 U/L (0-31); Albumin Level 3.7 g/dL (3.5-5.0); Alkaline Phosphatase 124 U/L (39-117); Anion Gap 15 (12-20); Aspartate Amino Transferase 18 U/L (5-31); Bilirubin Direct 0.4 mg/dL (0.0-0.5); Bilirubin Total 0.8 mg/dL (0.0-1.0); Blood Urea Nitrogen 36 mg/dL (9-16); Calcium 8.5 mg/dL (8.4-10.2); Carbon Dioxide 24 mmol/L (22-29); Chloride 97 mmol/L (96-108); Creatinine Clr Calc Pharmacy 22.6; Estimated Glomerular Filt Rate 37; Glucose Random 279 mg/dL (60-115); Lipase 15 U/L (8-78); Magnesium 2.3 mg/dL (1.6-2.6); Potassium 3.8 mmol/L (3.3-5.1); Sodium 132 mmol/L (135-145); Total Protein 6.7 g/dL (6.5-8.0)
[2023-11-16 21:51] LABS: Venous Blood Gas Refer to POC result
[2023-11-16 21:53] LABS: VBG Base Excess 4.4 mmol/L; VBG HCO3 26 mmol/L (22-26); VBG pCO2 32 mmHg; VBG pH 7.52 (7.32-7.43); VBG pO2 73 mmHg
[2023-11-16 21:53] LABS: Bacteria Urine None Seen (None Seen); RBC Urine >20 /HPF (0-2); Squamous Epithelial Cell Urine 0-2 /HPF (0-2); UACC Culture Trigger YES; WBC Urine >50 /HPF (0-5)
[2023-11-16 21:55] LABS: B Type Natriuretic Peptide 502 pg/mL (<100)
[2023-11-16 21:56] LABS: Troponin-I High Sensitivity 11.2 ng/L (<3.5-17.0)
[2023-11-16 22:14] LABS: C Reactive Protein 26.97 mg/dL (< or = 0.50)
[2023-11-16 22:17] LABS: Influenza A PCR NEGATIVE (Negative); Influenza B PCR NEGATIVE (Negative); Resp Syncy Virus RNA Qual PCR NEGATIVE (Negative); SARS COV2 PCR INHOUSE NEGATIVE (Negative)
[2023-11-16] MEDS: 0.9 % Sodium Chloride 1,000 ML 999 ML IV (22:31)
[2023-11-16] MEDS: cefTRIAXone sodium 1 GM in 0.9 % Sodium Chloride 50 ML IV (22:31)
[2023-11-16 22:34] VITALS: TEMP 38
[2023-11-16 22:47] LABS: Beta-Hydroxybutyrate 0.09 mmol/L (0.02-0.27)
--- NOTE | 2023-11-16 23:21 | PM.IMHP ---
History of Present Illness Date of Service: 11/16/23 Chief Complaint: AMS, fever This is a 88 year old female with pertinent history of atrial fibrillation on anticoagulation, insulin-dependent diabetes mellitus, history of UTI, mixed hyperlipidemia, CKD stage IIIB, congestive heart failure with preserved ejection fraction, hypothyroidism, gastroesophageal reflux disease who was brought to the emergency department for evaluation of confusion. History obtained with the help of daughter bedside. Patient was diagnosed with UTI outpatient 2 days prior to presentation. She was initiated on oral cephalosporin but continued to have fever, change in odor of urine and increased urinary frequency. Patient was also found to be confused in the day of presentation by family members. Admits associated fevers and chills. No nausea, vomiting, chest discomfort, palpitations, shortness of breath, abdominal pain, changes in bowel habits. In the emergency department, patient was found to be septic and urine concerning for UTI. Review of Systems Cardiovascular: Cardiovascular: Reports no additional cardiovascular complaints Respiratory: Respiratory: Reports no additional respiratory complaints Gastrointestinal: Gastrointestinal: Reports no additional gastrointestinal complaints Genitourinary: Genitourinary: Reports urinary urgency [facility] Medical History Persistent atrial fibrillation Left thigh pain Abdominal mass, LUQ (left upper quadrant) Iliotibial band syndrome of left side UTI (urinary tract infection) Herpes zoster Orthostatic hypotension Acute hyponatremia Weakness COVID-19 Breast asymmetry Atrial fibrillation with rapid ventricular response Hyperkalemia Essential hypertension Atherosclerotic cardiovascular disease Chronic heart failure with preserved ejection fraction (HFpEF) Iliotibial band syndrome of right side Disc degeneration, lumbar Cognitive dysfunction 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 Atrial fibrillation Osteopenia Hypothyroid Spinal stenosis of lumbar region Degenerative disc disease, lumbar Type 2 diabetes mellitus with hyperglycemia Family History Father CVD (cardiovascular disease) Mother CVD (cardiovascular disease) Stroke Surgical History History of removal of cyst History of appendectomy History of eye surgery History of cataract surgery History of cholecystectomy History of section History of knee replacement History of hip replacement Social History Household Members: None Household Members Other:: son comes 3 days a week, daughter lives 5 minutes away visits frequently Housing: House Do you presently have visiting nurse or other home services: Yes Alcohol intake: never Comment: post cardioversion Patient Tobacco Use Status: Former Tobacco user Tobacco use type: Cigarette Years Smoked: <1 e-Cigarette/Vaping Use: Former Use Second Hand Smoke Exposure: No Advance Directives: Yes Advance Directives on File: Yes Advance Directives Date on File: 08/29/21 Do you have a plan to hurt others: No Plan service: No Current occupational status: retired Cognitive needs: Yes (Walker) Hearing needs: No Vision needs: Yes Meds Allergies Allergy/AdvReac Type Severity Reaction Status Date / Time codeine Allergy Intermediate TACHYCARDIA Verified 11/16/23 20:06 nitrofurantoin [Macrobid] Allergy Unknown confusion Verified 11/16/23 20:06 pravastatin Allergy Unknown Unknown Verified 11/16/23 20:06 rosuvastatin [Crestor] Allergy Unknown Unknown Verified 11/16/23 20:06 Sulfa (Sulfonamide Allergy Unknown unknown Verified 11/16/23 20:06 Antibiotics) sulfamethoxazole Allergy Unknown Unknown Verified 11/16/23 20:06 [From Bactrim] trimethoprim [From Bactrim] Allergy Unknown Unknown Verified 11/16/23 20:06 amlodipine AdvReac Intermediate leg Verified 11/16/23 20:06 swelling digoxin AdvReac Intermediate Confusion Verified 11/16/23 20:06 Home Medications ?Medication ?Instructions ?Recorded ?Confirmed ?Last Taken ?Type travoprost 0.004 % eye drops 1 drp ophthalmic (eye) BEDTIME 06/01/20 06/14/23 08/16/21 History omeprazole 20 mg capsule,delayed 20 mg PO DAILY@0630 03/01/21 06/14/23 08/28/21 History release acetaminophen 500 mg tablet 1,000 mg PO TID 08/17/21 06/14/23 08/16/21 History glycerin (adult) 1 supp [place] DAILY PRN Constipation 08/17/21 06/14/23 Unknown History cholecalciferol (vitamin D3) 25 25 mcg PO DAILY 01/01/23 06/14/23 Unknown History mcg (1,000 unit) capsule ferrous sulfate-vitamin C 39 mg-75 tab PO 01/01/23 06/14/23 Unknown History mg tablet glucose 4 gram chewable tablet 4 g PO Q15M PRN 01/01/23 06/14/23 Unknown History (Dex4 Glucose) vitamins A,C,Y-cjbr-bneozz 4,296 1 cap PO BID 01/01/23 06/14/23 Unknown History mcg-226 mg-90 mg capsule (PreserVision AREDS) metoprolol succinate 25 mg 25 mg PO DAILY PRN high BP 06/14/23 Unknown History tablet,extended release 24 hr Physical Exam Vital Signs and Narrative: Vital Signs: Last Vital Signs Temp 100.4 F 11/16/23 22:34 Pulse 106 H 11/16/23 19:55 Resp 19 11/16/23 19:55 BP 132/65 11/16/23 19:55 Pulse Ox 97 11/16/23 19:55 O2 Del Method Room Air 11/16/23 19:55 BMI result Body Mass Index 26.1 Elderly female lying in bed in no distress Neck supple, no JVD Irregularly irregular, S1-S2 heard Regular breath sounds bilaterally, no wheezing or crackles appreciated Abdomen soft nontender, no guarding, no rigidity Patient is awake, alert and oriented to self, place, disoriented to time and person ; no focal motor deficit Psych: Normal mood No pedal edema Results Labs 11/16/23 21:23 11/16/23 21:23 Labs: Laboratory Results - last 24 hr 11/16/23 11/16/23 11/16/23 21:09 21:23 21:25 MCV 91.9 MCH 32.3 MCHC 35.2 H RDW 15.6 Plt Count 219 MPV 10.7 Immature Gran % (Auto) 0.8 H Neut % (Auto) 85.9 H Lymph % (Auto) 4.6 L [place] % (Auto) 8.2 Eos % (Auto) 0.1 Baso % (Auto) 0.4 Lymph # (Auto) 0.8 L [place] # (Auto) 1.4 H Eos # (Auto) 0.0 Baso # (Auto) 0.1 Abs Immat Gran (auto) 0.14 H Absolute Neuts (auto) 14.7 H Absolute Nucleated RBC 0.000 Nucleated RBC % (auto) 0.0 PT 32.9 H D INR 2.7 H APTT 34.4 VBG pH VBG pCO2 VBG pO2 VBG HCO3 VBG O2 Saturation VBG Base Excess Anion Gap 15 Estim Creat Clear Calc 22.6 Estimated GFR 37 Random Glucose 279 H Lactic Acid 2.1 H* Calcium 8.5 D Magnesium 2.3 Total Bilirubin 0.8 Direct Bilirubin 0.4 AST 18 ALT 21 Alkaline Phosphatase 124 H Troponin I High Sens 11.2 C-Reactive Protein 26.97 H B-Natriuretic Peptide 502 H Total Protein 6.7 Albumin 3.7 Lipase 15 Beta-Hydroxybutyrate Hold Green Top See Note Urine Color Urine Appearance Urine pH Ur Specific [place] Urine Protein Urine Glucose (UA) Urine Ketones Urine Blood Urine Nitrite Ur Leukocyte Esterase Urine RBC Urine WBC Ur Squamous Epith Cells Urine Bacteria Hyaline Casts Influenza Type A (PCR) NEGATIVE Influenza Type B (PCR) NEGATIVE RSV RNA Qual (PCR) NEGATIVE SARS-CoV-2 RNA (RT-PCR) NEGATIVE 11/16/23 11/16/23 21:33 21:46 MCV MCH MCHC RDW Plt Count MPV Immature Gran % (Auto) Neut % (Auto) Lymph % (Auto) [place] % (Auto) Eos % (Auto) Baso % (Auto) Lymph # (Auto) [place] # (Auto) Eos # (Auto) Baso # (Auto) Abs Immat Gran (auto) Absolute Neuts (auto) Absolute Nucleated RBC Nucleated RBC % (auto) PT INR APTT VBG pH 7.52 H VBG pCO2 32 VBG pO2 73 VBG HCO3 26 VBG O2 Saturation 95.0 VBG Base Excess 4.4 Anion Gap Estim Creat Clear Calc Estimated GFR Random Glucose Lactic Acid Calcium Magnesium Total Bilirubin Direct Bilirubin AST ALT Alkaline Phosphatase Troponin I High Sens C-Reactive Protein B-Natriuretic Peptide Total Protein Albumin Lipase Beta-Hydroxybutyrate 0.09 Hold Green Top Urine Color Yellow Urine Appearance Turbid Urine pH 5.5 Ur Specific [place] 1.020 Urine Protein 100 (2+) H Urine Glucose (UA) 500 H Urine Ketones Negative Urine Blood Large (3+) H Urine Nitrite Negative Ur Leukocyte Esterase Moderate (2+) H Urine RBC >20 H Urine WBC >50 H Ur Squamous Epith Cells 0-2 Urine Bacteria None Seen Hyaline Casts 3-5 Influenza Type A (PCR) Influenza Type B (PCR) RSV RNA Qual (PCR) SARS-CoV-2 RNA (RT-PCR) Imaging Radiologist's Impressions: Impressions Chest X-Ray 11/16/23 20:21 IMPRESSION: Stable, mild cardiomegaly. The ovoid opacity in the left lower lung is stable. Small right pleural effusion. Head CT 11/16/23 20:26 IMPRESSION: No acute intracranial abnormality. Mild to moderate global cerebral volume loss. Assessment and Plan (1) UTI (urinary tract infection): Status: Acute (2) Sepsis: Status: Acute Plan This is a 88 year old female with pertinent history of atrial fibrillation on anticoagulation, insulin-dependent diabetes mellitus, history of UTI, mixed hyperlipidemia, CKD stage IIIB, congestive heart failure with preserved ejection fraction, hypothyroidism, gastroesophageal reflux disease who was brought to the emergency department for evaluation of confusion. #. Severe sepsis due to UTI: Resuscitated with IV crystalloids. Initiating empiric IV Rocephin. Urine culture and blood culture obtained. Lactic acid obtained #. Acute metabolic encephalopathy in the setting of above: Monitor mentation #. Insulin-dependent diabetes mellitus with hyperglycemia: Initiating basal plus insulin regimen #. Acute lactic acidosis due to sepsis #. Mixed hyperlipidemia: On statin #. Congestive heart failure with preserved ejection fraction: No decompensation during admission. On furosemide #. Hypothyroidism: On Synthroid #. Gastroesophageal reflux disease: On PPI #. Paroxysmal atrial fibrillation: On Xarelto. Rate controlled in the ER. Continue amiodarone and beta-live Med rec pending DVT prophylaxis: Xarelto Full code Admit as inpatient and will require two night minimum hospital stay for IV antibiotics (as above), which is not possible in a lesser acute setting. Quality Stroke Does the patient have a stroke diagnosis?: No VTE Prior VTE?: No VTE Risk Level:: Medical - moderate - high VTE Device Contraindication: Treatment Not Indicated VTE Drug Contraindication: N/A - Med Ordered
[2023-11-16 23:27] VITALS: BP 162/89; PULSE 101; RESP 16; TEMP 36.9; O2SAT 94
[2023-11-16 23:30] LABS: Reflex Lactate? Lactic Acid Added
[2023-11-17 00:02] LABS: ~Lactic Acid-LAB USE ONLY 1.1 mmol/L (0.5-2.0)
[2023-11-17 00:35] VITALS: BP 165/77; PULSE 104; RESP 18; TEMP 37.4; O2SAT 96
[2023-11-17 00:57] VITALS: BP 138/72; PULSE 108
[2023-11-17 05:29] LABS: MANUAL DIFF FLAG NO
[2023-11-17 05:30] LABS: Basophils Percent Auto 0.2 % (0-2); Eosinophils Percent Auto 0.2 % (0-4); Hematocrit 30.9 % (37.0-47.0); Hemoglobin 10.7 g/dl (12.0-16.0); Imm Gran Abs Auto 0.13 X10*3/uL (0.00-0.03); Imm Gran Pct Auto 0.8 % (0.0-0.4); Lymphocytes Absolute Auto 0.9 X10*3/uL (1.2-4.9); Lymphocytes Percent Auto 5.4 % (20-40); Mean Corpuscular HGB Conc 34.6 g/dl (31.0-35.0); Mean Corpuscular Hemoglobin 31.7 pg (27.0-33.0); Mean Corpuscular Volume 91.4 fL (80.0-98.0); Mean Platelet Volume 10.4 fL (9.4-12.3); Monocytes Absolute Auto 1.4 X10*3/uL (0.1-1.2); Monocytes Percent Auto 8.4 % (2-11); Platelet Count 205 X10*3/uL (160-400); Red Blood Count 3.38 X10*6/uL (4.20-5.50); Red Cell Distribution Width 15.5 % (11.0-16.0); White Blood Count 16.4 X10*3/uL (4.8-10.8)
[2023-11-17 05:46] LABS: Anion Gap 14 (12-20); Blood Urea Nitrogen 32 mg/dL (9-16); Calcium 8.4 mg/dL (8.4-10.2); Carbon Dioxide 24 mmol/L (22-29); Chloride 100 mmol/L (96-108); Creatinine Clr Calc Pharmacy 23.5; Estimated Glomerular Filt Rate 38; Glucose Random 296 mg/dL (60-115); Potassium 3.8 mmol/L (3.3-5.1); Sodium 134 mmol/L (135-145)
[2023-11-17 05:47] LABS: Glucose, Whole Blood 273 mg/dL (60-115)
[2023-11-17 06:00] VITALS: BP 135/68; PULSE 107; RESP 18; TEMP 36.4; O2SAT 96
[2023-11-17 07:26] LABS: Glucose, Whole Blood 346 mg/dL (60-115)
[2023-11-17] MEDS: 0.9 % Sodium Chloride Flush 3 ML SYRINGE IVFLUSH ×2 (07:38→14:38)
[2023-11-17] MEDS: Insulin Lispro 100 UNIT/ML 3 ML VIAL SUBCUT ×3 (07:39→17:10)
[2023-11-17] MEDS: ondansetron HCL 4 MG/2 ML VIAL IVPUSH ×2 (09:33→16:42)
[2023-11-17] MEDS: Milk of Magnesia 30 ML ORAL.SUSP PO (09:33)
--- NOTE | 2023-11-17 11:16 | HO.PM.IMPN ---
Subjective Subjective Date of Service: 11/17/23 Interval History: Seen and examined this morning Follow-up for UTI Remains confused but awake, alert, no acute distress Denies any abdominal, nausea, Review of Systems Review of Systems: Yes all other systems are reviewed and are negative Constitutional Constitutional: Denies chills and Denies fever(s) Cardiovascular Cardiovascular: Denies chest pain, Denies palpitations and Denies dyspnea Respiratory Respiratory: Denies cough and Denies dyspnea Gastrointestinal Gastrointestinal: Denies abdominal pain, Denies nausea and Denies vomiting Endocrine Endocrine: Denies palpitations Physical Exam Vital Signs: Vital Signs: Last Vital Signs Temp 97.5 F 11/17/23 06:00 Pulse 107 H 11/17/23 06:00 Resp 18 11/17/23 06:00 BP 135/68 11/17/23 06:00 Pulse Ox 96 11/17/23 06:00 O2 Del Method Room Air 11/17/23 06:00 BMI result Body Mass Index 26.1 Const: General: cooperative, comfortable, no acute distress, alert and awake Nutritional Appearance: average body habitus Orientation/consciousness: oriented to person Resp: Effort & Inspection: normal respiratory effort, able to speak in complete sentences, no respiratory distress and no use of accessory muscles Auscultation: clear to auscultation bilaterally Cardio: Rate: tachycardic GI: Other: no guarding or rebound Inspection: No distended Palpation (GI): Soft to palpation and nontender Neuro: General: oriented to person, moves all extremities and CN's II-XI intact bilaterally Extrem: General: Yes no pedal edema Objective Data Active Medications Acetaminophen (Acetaminophen 325 Mg Tablet) 650 mg PO Q6H PRN PRN Reason: Pain, Mild (Pain Scale 1-3), fever or headache Calcium Carbonate (Calcium Carbonate 750 Mg Tab.Chew) 750 mg PO Q4H PRN PRN Reason: Heartburn Glucose (Glucose Gel 15 Gm Gel..Gram.) 15 gm PO Q15M PRN; Protocol PRN Reason: per Hypoglycemia Standing Ord. Dextrose (D10) 250 mls @ 750 mls/hr IV Q15M PRN; Protocol PRN Reason: per Hypoglycemia Standing Ord. Ceftriaxone Sodium 1 gm/ (Sodium Chloride) 50 mls @ 100 mls/hr IV Q24H [facility] Insulin Human Lispro (Insulin Lispro 100 Unit/Ml 3 Ml Vial) 0 unit SUBCUT QIDACHS [facility]; Protocol Last Admin: 11/17/23 07:39 Dose: 8 unit Documented By: EFRA Magnesium Hydroxide (Milk Of Magnesia 30 Ml Oral.Susp) 30 ml PO DAILY PRN PRN Reason: Constipation Last Admin: 11/17/23 09:33 Dose: 30 ml Documented By: EFRA Melatonin (Melatonin 3 Mg Tablet) 6 mg PO BEDTIME PRN PRN Reason: Insomnia Ondansetron HCl (Ondansetron Hcl 4 Mg/2 Ml Vial) 4 mg IVPUSH Q8H PRN PRN Reason: Nausea and Vomiting Last Admin: 11/17/23 09:33 Dose: 4 mg Documented By: EFRA Sodium Chloride (0.9 % Sodium Chloride Flush 3 Ml Syringe) 3 ml [facility] Last Admin: 11/17/23 07:38 Dose: 3 ml Documented By: EFRA Labs 11/17/23 05:23 11/17/23 05:23 Labs: Laboratory Results - last 24 hr 11/16/23 11/16/23 11/16/23 21:09 21:23 21:25 MCV 91.9 MCH 32.3 MCHC 35.2 H RDW 15.6 Plt Count 219 MPV 10.7 Immature Gran % (Auto) 0.8 H Neut % (Auto) 85.9 H Lymph % (Auto) 4.6 L [place] % (Auto) 8.2 Eos % (Auto) 0.1 Baso % (Auto) 0.4 Lymph # (Auto) 0.8 L [place] # (Auto) 1.4 H Eos # (Auto) 0.0 Baso # (Auto) 0.1 Abs Immat Gran (auto) 0.14 H Absolute Neuts (auto) 14.7 H Absolute Nucleated RBC 0.000 Nucleated RBC % (auto) 0.0 PT 32.9 H D INR 2.7 H APTT 34.4 VBG pH VBG pCO2 VBG pO2 VBG HCO3 VBG O2 Saturation VBG Base Excess Anion Gap 15 Estim Creat Clear Calc 22.6 Estimated GFR 37 POC Glucose Random Glucose 279 H Lactic Acid 2.1 H* Lactic Acid F/U @ 2Hr Calcium 8.5 D Magnesium 2.3 Total Bilirubin 0.8 Direct Bilirubin 0.4 AST 18 ALT 21 Alkaline Phosphatase 124 H Troponin I High Sens 11.2 C-Reactive Protein 26.97 H B-Natriuretic Peptide 502 H Total Protein 6.7 Albumin 3.7 Lipase 15 Beta-Hydroxybutyrate Hold Green Top See Note Urine Color Urine Appearance Urine pH Ur Specific [place] Urine Protein Urine Glucose (UA) Urine Ketones Urine Blood Urine Nitrite Ur Leukocyte Esterase Urine RBC Urine WBC Ur Squamous Epith Cells Urine Bacteria Hyaline Casts Influenza Type A (PCR) NEGATIVE Influenza Type B (PCR) NEGATIVE RSV RNA Qual (PCR) NEGATIVE SARS-CoV-2 RNA (RT-PCR) NEGATIVE 11/16/23 11/16/23 11/16/23 21:33 21:46 23:45 MCV MCH MCHC RDW Plt Count MPV Immature Gran % (Auto) Neut % (Auto) Lymph % (Auto) [place] % (Auto) Eos % (Auto) Baso % (Auto) Lymph # (Auto) [place] # (Auto) Eos # (Auto) Baso # (Auto) Abs Immat Gran (auto) Absolute Neuts (auto) Absolute Nucleated RBC Nucleated RBC % (auto) PT INR APTT VBG pH 7.52 H VBG pCO2 32 VBG pO2 73 VBG HCO3 26 VBG O2 Saturation 95.0 VBG Base Excess 4.4 Anion Gap Estim Creat Clear Calc Estimated GFR POC Glucose Random Glucose Lactic Acid Lactic Acid F/U @ 2Hr 1.1 Calcium Magnesium Total Bilirubin Direct Bilirubin AST ALT Alkaline Phosphatase Troponin I High Sens C-Reactive Protein B-Natriuretic Peptide Total Protein Albumin Lipase Beta-Hydroxybutyrate 0.09 Hold Green Top Urine Color Yellow Urine Appearance Turbid Urine pH 5.5 Ur Specific [place] 1.020 Urine Protein 100 (2+) H Urine Glucose (UA) 500 H Urine Ketones Negative Urine Blood Large (3+) H Urine Nitrite Negative Ur Leukocyte Esterase Moderate (2+) H Urine RBC >20 H Urine WBC >50 H Ur Squamous Epith Cells 0-2 Urine Bacteria None Seen Hyaline Casts 3-5 Influenza Type A (PCR) Influenza Type B (PCR) RSV RNA Qual (PCR) SARS-CoV-2 RNA (RT-PCR) 11/17/23 11/17/23 11/17/23 05:23 05:43 07:19 MCV 91.4 MCH 31.7 MCHC 34.6 RDW 15.5 Plt Count 205 MPV 10.4 Immature Gran % (Auto) 0.8 H Neut % (Auto) 85.0 H Lymph % (Auto) 5.4 L [place] % (Auto) 8.4 Eos % (Auto) 0.2 Baso % (Auto) 0.2 Lymph # (Auto) 0.9 L [place] # (Auto) 1.4 H Eos # (Auto) 0.0 Baso # (Auto) 0.0 Abs Immat Gran (auto) 0.13 H Absolute Neuts (auto) 14.0 H Absolute Nucleated RBC 0.000 Nucleated RBC % (auto) 0.0 PT INR APTT VBG pH VBG pCO2 VBG pO2 VBG HCO3 VBG O2 Saturation VBG Base Excess Anion Gap 14 Estim Creat Clear Calc 23.5 Estimated GFR 38 POC Glucose 273 H 346 H Random Glucose 296 H Lactic Acid Lactic Acid F/U @ 2Hr Calcium 8.4 Magnesium Total Bilirubin Direct Bilirubin AST ALT Alkaline Phosphatase Troponin I High Sens C-Reactive Protein B-Natriuretic Peptide Total Protein Albumin Lipase Beta-Hydroxybutyrate Hold Green Top Urine Color Urine Appearance Urine pH Ur Specific [place] Urine Protein Urine Glucose (UA) Urine Ketones Urine Blood Urine Nitrite Ur Leukocyte Esterase Urine RBC Urine WBC Ur Squamous Epith Cells Urine Bacteria Hyaline Casts Influenza Type A (PCR) Influenza Type B (PCR) RSV RNA Qual (PCR) SARS-CoV-2 RNA (RT-PCR) Assessment and Plan (1) Sepsis: Status: Acute (2) UTI (urinary tract infection): Status: Acute Plan This is a 88 year old female with pertinent history of atrial fibrillation on anticoagulation, insulin-dependent diabetes mellitus, history of UTI, mixed hyperlipidemia, CKD stage IIIB, congestive heart failure with preserved ejection fraction, hypothyroidism, gastroesophageal reflux disease who was brought to the emergency department for evaluation of confusion. #. Severe sepsis due to UTI: Partially treated with cephalexin as outpatient Met sepsis criteria with leukocytosis, tachycardia, lactic acid 2.1, resolved with IVF Continue IV Rocephin Urine culture and blood culture pending #. Acute metabolic encephalopathy on a background of dementia Due to above #. Insulin-dependent diabetes mellitus with hyperglycemia: On [place] at baseline, we will convert to Lantus Cover with sliding scale, ADA diet #. Mixed hyperlipidemia: On statin, allergic to our formulary equivalent. We will hold #. Congestive heart failure with preserved ejection fraction: No decompensation Continue home dose of Lasix #. Hypothyroidism: Continue Synthroid #. Gastroesophageal reflux disease: On PPI #. Paroxysmal atrial fibrillation: Continue Xarelto. Continue amiodarone and metoprolol DVT prophylaxis: Xarelto Full code Requires ongoing inpatient stay for IV antibiotics (as above), which is not possible in a lesser acute setting. Quality Stroke Does the patient have a stroke diagnosis?: No VTE Prior VTE?: No VTE Risk Level:: Medical - moderate - high VTE Device Contraindication: Treatment Not Indicated VTE Drug Contraindication: N/A - Med Ordered
--- NOTE | 2023-11-17 12:04 | PHA.MEDREC ---
Pharmacy Consult ? Medication Reconciliation Pharmacy has completed the medication reconciliation.
[2023-11-17 12:34] LABS: Glucose, Whole Blood 379 mg/dL (60-115)
[2023-11-17 13:39] LABS: Glucose, Whole Blood 374 mg/dL (60-115)
[2023-11-17 13:48] LABS: Glucose, Whole Blood 369 mg/dL (60-115)
[2023-11-17] MEDS: Amiodarone HCL 200 MG TABLET PO (13:50)
[2023-11-17] MEDS: Insulin Glargine,Hum.rec.anlog 100 UNIT/ML 10 ML VIAL 7 UNIT SUBCUT (13:50)
[2023-11-17] MEDS: Metoprolol Succinate ER 100 MG TAB.ER.24H PO (13:51)
[2023-11-17 15:50] VITALS: BP 151/66; PULSE 94; RESP 12; TEMP 36.4; O2SAT 95
[2023-11-17 16:38] LABS: Glucose, Whole Blood 298 mg/dL (60-115)
[2023-11-17] MEDS: Rivaroxaban 15 MG TABLET PO (17:11)
[2023-11-17 19:53] LABS: Glucose, Whole Blood 125 mg/dL (60-115)
[2023-11-17 19:57] VITALS: BP 157/74; PULSE 101; RESP 14; TEMP 36.9; O2SAT 95
[2023-11-17] MEDS: Latanoprost 0.005 % Ophth Sol 2.5 ML DROPS 1 DROP EYE-BOTH (20:40)
[2023-11-17] MEDS: cefTRIAXone sodium 1 GM in 0.9 % Sodium Chloride 50 ML IV (20:40)
[2023-11-17] MEDS: Melatonin 3 MG TABLET 6 MG PO (22:04)
[2023-11-18 04:00] VITALS: BP 155/74; PULSE 96; RESP 16; TEMP 36.4; O2SAT 95
[2023-11-18 04:49] LABS: Glucose, Whole Blood 185 mg/dL (60-115)
[2023-11-18] MEDS: Levothyroxine Sodium 125 MCG TABLET PO (05:12)
[2023-11-18 07:35] LABS: Glucose, Whole Blood 261 mg/dL (60-115)
[2023-11-18 07:43] VITALS: BP 134/59; PULSE 94; RESP 16; TEMP 36.8; O2SAT 96
[2023-11-18 07:50] LABS: Hematocrit 31.8 % (37.0-47.0); Hemoglobin 10.8 g/dl (12.0-16.0); Mean Corpuscular Hemoglobin 31.5 pg (27.0-33.0); Mean Corpuscular Volume 92.7 fL (80.0-98.0); Mean Platelet Volume 10.9 fL (9.4-12.3); Platelet Count 235 X10*3/uL (160-400); Red Blood Count 3.43 X10*6/uL (4.20-5.50); Red Cell Distribution Width 15.7 % (11.0-16.0); White Blood Count 14.9 X10*3/uL (4.8-10.8)
[2023-11-18 08:10] LABS: Anion Gap 14 (12-20); Blood Urea Nitrogen 29 mg/dL (9-16); Calcium 8.6 mg/dL (8.4-10.2); Carbon Dioxide 26 mmol/L (22-29); Chloride 99 mmol/L (96-108); Creatinine Clr Calc Pharmacy 25.2; Estimated Glomerular Filt Rate 42; Glucose Random 249 mg/dL (60-115); Potassium 4.7 mmol/L (3.3-5.1); Sodium 134 mmol/L (135-145)
[2023-11-18] MEDS: Insulin Lispro 100 UNIT/ML 3 ML VIAL SUBCUT ×3 (08:23→16:42)
[2023-11-18] MEDS: Metoprolol Succinate ER 100 MG TAB.ER.24H PO (08:23)
[2023-11-18] MEDS: Amiodarone HCL 200 MG TABLET PO (08:24)
[2023-11-18] MEDS: Furosemide 40 MG TABLET PO (08:24)
[2023-11-18] MEDS: Cholecalciferol (Vitamin D3) 25 MCG TABLET PO (08:24)
[2023-11-18] MEDS: 0.9 % Sodium Chloride Flush 3 ML SYRINGE IVFLUSH ×3 (08:24→23:42)
[2023-11-18] MEDS: Insulin Glargine,Hum.rec.anlog 100 UNIT/ML 10 ML VIAL 7 UNIT SUBCUT (08:25)
--- NOTE | 2023-11-18 08:25 | MHC.CM.PN ---
CM MET WITH PT AND DAUGHTER, MEL, AT BEDSIDE PT LIVES ALONE, SHE STAYS AT HER DAUGHTERS HOUSE 4 NIGHTS PER WEEK, AND HER SON STAYS WITH HER THE OTHER 3 NIGHTS HER SON AND DAUGHTER VISIT HER 3X/DAY TO ASSIST WITH DM MANAGEMENT SHE USES A [employer] [facility] [employer] AND HAS DM SUPPLIES HCP ON FILE PCP: TENZIN SYED IMM DELIVERED DCP: HOME, RESUME FAMILY SUPPORT PT AND DAUGHTER STATE THEY DO NOT FEEL THE NEED FOR [facility] FAMILY TO TRANSPORT
[2023-11-18 11:37] LABS: Glucose, Whole Blood 316 mg/dL (60-115)
--- NOTE | 2023-11-18 11:40 | HO.PM.IMPN ---
Subjective Subjective Date of Service: 11/18/23 Interval History: Seen and examined this morning Follow-up for UTI Patient awake, alert, no acute distress. Seems less confused. Denies abdominal pain, nausea, vomiting, dysuria Review of Systems Review of Systems: Yes all other systems are reviewed and are negative Constitutional Constitutional: Denies chills and Denies fever(s) Cardiovascular Cardiovascular: Denies chest pain, Denies palpitations and Denies dyspnea Respiratory Respiratory: Denies cough and Denies dyspnea Endocrine Endocrine: Denies palpitations Physical Exam Vital Signs: Vital Signs: Last Vital Signs Temp 98.2 F 11/18/23 07:43 Pulse 94 11/18/23 07:43 Resp 16 11/18/23 07:43 BP 134/59 L 11/18/23 07:43 Pulse Ox 96 11/18/23 07:43 O2 Del Method Room Air 11/18/23 07:43 BMI result Body Mass Index 26.1 Const: General: cooperative, comfortable, no acute distress, alert and awake Nutritional Appearance: average body habitus Orientation/consciousness: oriented to person and oriented to place Resp: Effort & Inspection: normal respiratory effort, able to speak in complete sentences, no respiratory distress and no use of accessory muscles Auscultation: clear to auscultation bilaterally Cardio: Rate: regular rate GI: Other: no guarding or rebound Inspection: No distended Palpation (GI): Soft to palpation and nontender Neuro: General: oriented to person, oriented to place, moves all extremities and CN's II-XI intact bilaterally Extrem: General: Yes no pedal edema Objective Data Active Medications Acetaminophen (Acetaminophen 325 Mg Tablet) 650 mg PO Q6H PRN PRN Reason: Pain, Mild (Pain Scale 1-3), fever or headache Albuterol Sulfate (Albuterol Sulfate 90 Mcg 8 Gm Inhaler) 2 puff INHALE RQ6H PRN PRN Reason: shortness of breath or wheezing Amiodarone HCl (Amiodarone Hcl 200 Mg Tablet) 200 mg PO DAILY [facility] Last Admin: 11/18/23 08:24 Dose: 200 mg Documented By: HUNTER Bisacodyl (Bisacodyl 10 Mg Supp.Rect) 10 mg [place] DAILY PRN PRN Reason: Constipation Calcium Carbonate (Calcium Carbonate 750 Mg Tab.Chew) 750 mg PO Q4H PRN PRN Reason: Heartburn Furosemide (Furosemide 40 Mg Tablet) 40 mg PO DAILY [facility]; Protocol Last Admin: 11/18/23 08:24 Dose: 40 mg Documented By: HUNTER Glucose (Glucose Gel 15 Gm Gel..Gram.) 15 gm PO Q15M PRN; Protocol PRN Reason: per Hypoglycemia Standing Ord. Dextrose (D10) 250 mls @ 750 mls/hr IV Q15M PRN; Protocol PRN Reason: per Hypoglycemia Standing Ord. Ceftriaxone Sodium 1 gm/ (Sodium Chloride) 50 mls @ 100 mls/hr IV Q24H [facility] Last Infusion: 11/17/23 21:19 Dose: Infused Documented By: BRITTNEY Insulin Glargine (Insulin Glargine,Hum.Rec.Anlog 100 Unit/Ml 10 Ml Vial) 7 unit SUBCUT DAILY [facility] Last Admin: 11/18/23 08:25 Dose: 7 unit Documented By: HUNTER Insulin Human Lispro (Insulin Lispro 100 Unit/Ml 3 Ml Vial) 0 unit SUBCUT QIDACHS [facility]; Protocol Last Admin: 11/18/23 08:23 Dose: 6 unit Documented By: HUNTER Latanoprost (Latanoprost 0.005 % Ophth Liseth 2.5 Ml Drops) 1 drop EYE-BOTH BEDTIME [facility] Last Admin: 11/17/23 20:40 Dose: 1 drop Documented By: BRITTNEY Levothyroxine Sodium (Levothyroxine Sodium 125 Mcg Tablet) 125 mcg PO DAILY@0600 [facility] Last Admin: 11/18/23 05:12 Dose: 125 mcg Documented By: BRITTNEY Magnesium Hydroxide (Milk Of Magnesia 30 Ml Oral.Susp) 30 ml PO DAILY PRN PRN Reason: Constipation Last Admin: 11/17/23 09:33 Dose: 30 ml Documented By: EFRA Melatonin (Melatonin 3 Mg Tablet) 6 mg PO BEDTIME PRN PRN Reason: Insomnia Last Admin: 11/17/23 22:04 Dose: 6 mg Documented By: BRITTNEY Metoprolol Succinate (Metoprolol Succinate Er 100 Mg Tab.Er.24h) 100 mg PO DAILY [facility]; Protocol Last Admin: 11/18/23 08:23 Dose: 100 mg Documented By: HUNTER Ondansetron HCl (Ondansetron Hcl 4 Mg/2 Ml Vial) 4 mg IVPUSH Q8H PRN PRN Reason: Nausea and Vomiting Last Admin: 11/17/23 16:42 Dose: 4 mg Documented By: HUNTER Rivaroxaban (Rivaroxaban 15 Mg Tablet) 15 mg PO DAILY@1800 [facility] Last Admin: 11/17/23 17:11 Dose: 15 mg Documented By: HUNTER Sodium Chloride (0.9 % Sodium Chloride Flush 3 Ml Syringe) 3 ml IVFLUSH QSHIFT [facility] Last Admin: 11/18/23 08:24 Dose: 3 ml Documented By: HUNTER Vitamin D (Cholecalciferol (Vitamin D3) 25 Mcg Tablet) 25 mcg PO DAILY [facility] Last Admin: 11/18/23 08:24 Dose: 25 mcg Documented By: HUNTER Labs 11/18/23 07:29 11/18/23 07:29 Labs: Laboratory Results - last 24 hr 11/17/23 11/17/23 11/17/23 12:16 13:27 13:42 MCV MCH MCHC RDW Plt Count MPV Absolute Nucleated RBC Nucleated RBC % (auto) Anion Gap Estim Creat Clear Calc Estimated GFR POC Glucose 379 H* 374 H* 369 H* Random Glucose Calcium 11/17/23 11/17/23 11/18/23 16:29 19:50 04:33 MCV MCH MCHC RDW Plt Count MPV Absolute Nucleated RBC Nucleated RBC % (auto) Anion Gap Estim Creat Clear Calc Estimated GFR POC Glucose 298 H 125 H 185 H Random Glucose Calcium 11/18/23 11/18/23 11/18/23 07:26 07:29 11:26 MCV 92.7 MCH 31.5 MCHC 34.0 RDW 15.7 Plt Count 235 MPV 10.9 Absolute Nucleated RBC 0.000 Nucleated RBC % (auto) 0.0 Anion Gap 14 Estim Creat Clear Calc 25.2 Estimated GFR 42 POC Glucose 261 H 316 H Random Glucose 249 H Calcium 8.6 Microbiology Microbiology Results: Microbiology 11/16/23 21:33 Blood Culture - Preliminary Blood - Venous No growth after 24 hours. 11/16/23 21:23 Blood Culture - Preliminary Blood - Venous No growth after 24 hours. 11/16/23 21:33 Urine Culture - Preliminary Urine clean catch - Clean Catch Midstream No growth to date. Assessment and Plan (1) UTI (urinary tract infection): Status: Acute (2) Sepsis: Status: Acute Plan This is a 88 year old female with pertinent history of atrial fibrillation on anticoagulation, insulin-dependent diabetes mellitus, history of UTI, mixed hyperlipidemia, CKD stage IIIB, congestive heart failure with preserved ejection fraction, hypothyroidism, gastroesophageal reflux disease who was brought to the emergency department for evaluation of confusion. #. Severe sepsis due to UTI: Partially treated with cephalexin as outpatient Met sepsis criteria with leukocytosis, tachycardia. lactic acid 2.1, resolved with IVF. white count trending down Continue IV Rocephin until afebrile for another 24 hours Urine culture with no growth today, likely due to partial treatment as outpatient with oral antibiotics blood cultures negative to date #. Acute metabolic encephalopathy on a background of dementia Due to above #. Insulin-dependent diabetes mellitus with hyperglycemia: On Toujeo at baseline, converted to Lantus Cover with sliding scale, ADA diet #. Mixed hyperlipidemia: On statin, allergic to our formulary equivalent. will hold #. Congestive heart failure with preserved ejection fraction: No decompensation Continue home dose of Lasix #. Hypothyroidism: Continue Synthroid #. Gastroesophageal reflux disease: On PPI #. Paroxysmal atrial fibrillation: Continue Xarelto. Continue amiodarone and metoprolol DVT prophylaxis: Xarelto Full code Requires ongoing inpatient stay for IV antibiotics (as above), which is not possible in a lesser acute setting. Quality Stroke Does the patient have a stroke diagnosis?: No VTE Prior VTE?: No VTE Risk Level:: Medical - moderate - high VTE Device Contraindication: Treatment Not Indicated VTE Drug Contraindication: N/A - Med Ordered
[2023-11-18] MEDS: bisacodyL 10 MG SUPP.RECT PR (12:39)
[2023-11-18 15:42] VITALS: BP 140/71; PULSE 98; RESP 18; TEMP 37; O2SAT 99
[2023-11-18 16:09] LABS: Glucose, Whole Blood 214 mg/dL (60-115)
[2023-11-18] MEDS: Rivaroxaban 15 MG TABLET PO (17:04)
[2023-11-18 19:00] VITALS: BP 179/84; PULSE 101; RESP 18; TEMP 36.3; O2SAT 97
--- NOTE | 2023-11-18 19:35 | PC.NURSE ---
Addendum entered by Shaina Lopez RN 11/19/23 00:42: Clinic Md Associate attempted, also unable to place an IV. ED RN assistance requested and able to successfully place IV at 23:00. Abx initiated and infused without issue. POC was reassessed for ISS was 234, however, patient's daughter Janina present at the bedside declined the ordered ISS that was discussed, stated I don't give any insulin for a sugar like that at home and declined any of ISS. Covering Dr. Latif notified. Patient remains pleasantly confused and asking to go home; Pt's daughter requested proposal manager writer to give melatonin, but only 3mg, not the full six . Pt agreeable and medicated per daughter's request. In room camera continues for safety in addition to bed alarm and other high falls measures. Addendum entered by Shaina Lopez RN 11/18/23 22:28: Unable to obtain IV access despite multiple attempts. Nursing engine assembly supervisor notified for assistance obtaining. Original Note: Assumed care of patient at 19:00. Pt yelling from her room for her daughter Janina on initial greeting/assessment; Pt observed with her IV in her RT hand out and pulling at tape on skin. IV inspected and intact. Pt's daughter Janina presented to bedside during this and stated She was so good earlier, she must be sundowning . Pt assessed, Alert and Oriented x1 to self only. Reoriented and education provided to patient and daughter on plan of care. Will obtain to obtain IV access replacement for IV abx to treat UTI. Bed alarm on and safety measures in place.
[2023-11-18 20:31] LABS: Glucose, Whole Blood 219 mg/dL (60-115)
[2023-11-18] MEDS: cefTRIAXone sodium 1 GM in 0.9 % Sodium Chloride 50 ML IV (23:09)
[2023-11-18] MEDS: Latanoprost 0.005 % Ophth Sol 2.5 ML DROPS 1 DROP EYE-BOTH (23:10)
[2023-11-18 23:22] LABS: Glucose, Whole Blood 234 mg/dL (60-115)
[2023-11-18] MEDS: Melatonin 3 MG TABLET 6 MG PO (23:41)
[2023-11-19 01:44] VITALS: BP 161/71; PULSE 87; RESP 18; TEMP 36.4; O2SAT 94
[2023-11-19 04:00] VITALS: BP 171/89; PULSE 90; RESP 18; TEMP 36.3; O2SAT 96
[2023-11-19 04:26] VITALS: BP 152/74
[2023-11-19] MEDS: Levothyroxine Sodium 125 MCG TABLET PO (06:06)
[2023-11-19 07:30] LABS: Glucose, Whole Blood 419 mg/dL (60-115)
[2023-11-19] MEDS: Insulin Lispro 100 UNIT/ML 3 ML VIAL SUBCUT ×2 (07:39→11:55)
[2023-11-19 07:40] VITALS: PULSE 82; RESP 16; TEMP 36.8; O2SAT 97
[2023-11-19] MEDS: Metoprolol Succinate ER 100 MG TAB.ER.24H PO (08:41)
[2023-11-19] MEDS: Amiodarone HCL 200 MG TABLET PO (08:41)
[2023-11-19] MEDS: Cholecalciferol (Vitamin D3) 25 MCG TABLET PO (08:42)
[2023-11-19] MEDS: Furosemide 40 MG TABLET PO (08:42)
[2023-11-19] MEDS: 0.9 % Sodium Chloride Flush 3 ML SYRINGE IVFLUSH (08:44)
[2023-11-19] MEDS: Insulin Glargine,Hum.rec.anlog 100 UNIT/ML 10 ML VIAL 7 UNIT SUBCUT (08:45)
--- NOTE | 2023-11-19 11:02 | P.PNIM_ITS ---
Subjective Subjective Date of Service: 11/19/23 Interval History: Seen and examined this morning Follow-up for UTI Patient awake, alert, no acute distress. Seems less confused. Denies abdominal pain, nausea, vomiting, dysuria Review of Systems Review of Systems: Yes all other systems are reviewed and are negative Constitutional Constitutional: Denies chills and Denies fever(s) Cardiovascular Cardiovascular: Denies chest pain, Denies palpitations and Denies dyspnea Respiratory Respiratory: Denies cough and Denies dyspnea Endocrine Endocrine: Denies palpitations Physical Exam 2 Vital Signs: Vital Signs: Last Vital Signs Temp 98.2 F 11/19/23 07:40 Pulse 82 11/19/23 07:40 Resp 16 11/19/23 07:40 BP 152/74 H 11/19/23 04:26 Pulse Ox 97 11/19/23 07:40 O2 Del Method Room Air 11/19/23 07:40 BMI result Body Mass Index 26.1 Appearing in no acute distress lung sounds are clear to auscultation heart regular rate rhythm, clear S1, S2 positive bowel sounds, abdomen is soft, nontender neuro patient is alert , confused Objective Data Active Medications Acetaminophen (Acetaminophen 325 Mg Tablet) 650 mg PO Q6H PRN PRN Reason: Pain, Mild (Pain Scale 1-3), fever or headache Albuterol Sulfate (Albuterol Sulfate 90 Mcg 8 Gm Inhaler) 2 puff INHALE RQ6H PRN PRN Reason: shortness of breath or wheezing Amiodarone HCl (Amiodarone Hcl 200 Mg Tablet) 200 mg PO DAILY [facility] Last Admin: 11/19/23 08:41 Dose: 200 mg Documented By: REMEDIOS Bisacodyl (Bisacodyl 10 Mg Supp.Rect) 10 mg [place] DAILY PRN PRN Reason: Constipation Last Admin: 11/18/23 12:39 Dose: 10 mg Documented By: JERUSIA Calcium Carbonate (Calcium Carbonate 750 Mg Tab.Chew) 750 mg PO Q4H PRN PRN Reason: Heartburn Furosemide (Furosemide 40 Mg Tablet) 40 mg PO DAILY [facility]; Protocol Last Admin: 11/19/23 08:42 Dose: 40 mg Documented By: REMEDIOS Glucose (Glucose Gel 15 Gm Gel..Gram.) 15 gm PO Q15M PRN; Protocol PRN Reason: per Hypoglycemia Standing Ord. Dextrose (D10) 250 mls @ 750 mls/hr IV Q15M PRN; Protocol PRN Reason: per Hypoglycemia Standing Ord. Ceftriaxone Sodium 1 gm/ (Sodium Chloride) 50 mls @ 100 mls/hr IV Q24H [facility] Last Infusion: 11/18/23 23:39 Dose: Infused Documented By: KIKI Insulin Glargine (Insulin Glargine,Hum.Rec.Anlog 100 Unit/Ml 10 Ml Vial) 7 unit SUBCUT DAILY [facility] Last Admin: 11/19/23 08:45 Dose: 7 unit Documented By: REMEDIOS Insulin Human Lispro (Insulin Lispro 100 Unit/Ml 3 Ml Vial) 0 unit SUBCUT QIDACHS [facility]; Protocol Last Admin: 11/19/23 07:39 Dose: 10 unit Documented By: REMEDIOS Latanoprost (Latanoprost 0.005 % Ophth Liseth 2.5 Ml Drops) 1 drop EYE-BOTH BEDTIME [facility] Last Admin: 11/18/23 23:10 Dose: 1 drop Documented By: KIKI Levothyroxine Sodium (Levothyroxine Sodium 125 Mcg Tablet) 125 mcg PO DAILY@0600 [facility] Last Admin: 11/19/23 06:06 Dose: 125 mcg Documented By: KIKI Magnesium Hydroxide (Milk Of Magnesia 30 Ml Oral.Susp) 30 ml PO DAILY PRN PRN Reason: Constipation Last Admin: 11/17/23 09:33 Dose: 30 ml Documented By: EFRA Melatonin (Melatonin 3 Mg Tablet) 6 mg PO BEDTIME PRN PRN Reason: Insomnia Last Admin: 11/18/23 23:41 Dose: 3 mg Documented By: KIKI Comments: only 3mg given per patient's daughter request, present at bedside Metoprolol Succinate (Metoprolol Succinate Er 100 Mg Tab.Er.24h) 100 mg PO DAILY [facility]; Protocol Last Admin: 11/19/23 08:41 Dose: 100 mg Documented By: REMEDIOS Ondansetron HCl (Ondansetron Hcl 4 Mg/2 Ml Vial) 4 mg IVPUSH Q8H PRN PRN Reason: Nausea and Vomiting Last Admin: 11/17/23 16:42 Dose: 4 mg Documented By: HUNTER Rivaroxaban (Rivaroxaban 15 Mg Tablet) 15 mg PO DAILY@1800 [facility] Last Admin: 11/18/23 17:04 Dose: 15 mg Documented By: HUNTER Sodium Biphosphate/Sodium Phosphate (Sodium Phosphate,[place]-Dibasic 133 Ml Enema) 133 ml [place] ONCE PRN PRN Reason: Constipation Sodium Chloride (0.9 % Sodium Chloride Flush 3 Ml Syringe) 3 ml IVFLUSH QSHIFT [facility] Last Admin: 11/19/23 08:44 Dose: 3 ml Documented By: REMEDIOS Vitamin D (Cholecalciferol (Vitamin D3) 25 Mcg Tablet) 25 mcg PO DAILY [facility] Last Admin: 11/19/23 08:42 Dose: 25 mcg Documented By: REMEDIOS Labs 11/18/23 07:29 11/18/23 07:29 Labs: Laboratory Results - last 24 hr 11/18/23 11/18/23 11/18/23 11:26 15:51 20:25 POC Glucose 316 H 214 H 219 H 11/18/23 11/19/23 22:51 07:25 POC Glucose 234 H 419 H* Microbiology Microbiology Results: Microbiology 11/16/23 21:33 Blood Culture - Preliminary Blood - Venous No growth after 48 hours. 11/16/23 21:23 Blood Culture - Preliminary Blood - Venous No growth after 48 hours. 11/16/23 21:33 Urine Culture - Final Urine clean catch - Clean Catch Midstream Assessment and Plan (1) UTI (urinary tract infection): Status: Acute (2) Sepsis: Status: Acute Plan This is a 88 year old female with pertinent history of atrial fibrillation on anticoagulation, insulin-dependent diabetes mellitus, history of UTI, mixed hyperlipidemia, CKD stage IIIB, congestive heart failure with preserved ejection fraction, hypothyroidism, gastroesophageal reflux disease who was brought to the emergency department for evaluation of confusion. Severe sepsis due to UTI sepsis resolved Partially treated with cephalexin as outpatient Continue IV Rocephin Urine culture with no growth today, likely due to partial treatment as outpatient with oral antibiotics blood cultures negative to date Acute metabolic encephalopathy on a background of dementia Due to above Insulin-dependent diabetes mellitus with hyperglycemia On Toujeo at baseline, converted to Lantus Cover with sliding scale, ADA diet Mixed hyperlipidemia On statin, allergic to our formulary equivalent. will hold Congestive heart failure with preserved ejection fraction No decompensation Continue home dose of Lasix Hypothyroidism Continue Synthroid Gastroesophageal reflux disease: On PPI Paroxysmal atrial fibrillation Continue Xarelto. Continue amiodarone and metoprolol DVT prophylaxis: Xarelto Full code Requires ongoing inpatient stay for IV antibiotics (as above), which is not possible in a lesser acute setting. Quality Stroke Does the patient have a stroke diagnosis?: No VTE Prior VTE?: No VTE Risk Level:: Medical - moderate - high VTE Device Contraindication: Treatment Not Indicated VTE Drug Contraindication: N/A - Med Ordered
[2023-11-19] MEDS: Milk of Magnesia 30 ML ORAL.SUSP PO (11:31)
[2023-11-19 11:40] LABS: Glucose, Whole Blood 216 mg/dL (60-115)
[2023-11-19 12:29] LABS: Hematocrit 33.4 % (37.0-47.0); Hemoglobin 11.5 g/dl (12.0-16.0); Mean Corpuscular HGB Conc 34.4 g/dl (31.0-35.0); Mean Corpuscular Hemoglobin 32.2 pg (27.0-33.0); Mean Corpuscular Volume 93.6 fL (80.0-98.0); Mean Platelet Volume 10.2 fL (9.4-12.3); Platelet Count 266 X10*3/uL (160-400); Red Blood Count 3.57 X10*6/uL (4.20-5.50); Red Cell Distribution Width 15.5 % (11.0-16.0); White Blood Count 12.1 X10*3/uL (4.8-10.8)
--- NOTE | 2023-11-19 12:30 | PM.DS ---
DS: Providers Provider Date of Service: 11/19/23 Date of admission: 11/16/23 23:20 Primary care physician: Monique Whtie MD DS: Diagnosis Discharge Diagnosis (1) UTI (urinary tract infection): Status: Acute (2) Sepsis: Status: Acute DS: Summary Hospital Course Hospital Course: History and physical as per admitting provider. This is a 88 year old female with pertinent history of atrial fibrillation on anticoagulation, insulin-dependent diabetes mellitus, history of UTI, mixed hyperlipidemia, CKD stage IIIB, congestive heart failure with preserved ejection fraction, hypothyroidism, gastroesophageal reflux disease who was brought to the emergency department for evaluation of confusion. History obtained with the help of daughter bedside. Patient was diagnosed with UTI outpatient 2 days prior to presentation. She was initiated on oral cephalosporin but continued to have fever, change in odor of urine and increased urinary frequency. Patient was also found to be confused in the day of presentation by family members. Admits associated fevers and chills. No nausea, vomiting, chest discomfort, palpitations, shortness of breath, abdominal pain, changes in bowel habits. In the emergency department, patient was found to be septic and urine concerning for UTI. 88-year-old woman treated for encephalopathy secondary to sepsis, urinary tract infection. Failed outpatient treatment. Started on IV Rocephin. She had no other signs of infection and will require another 2 days of oral antibiotics on discharge with Ceftin. Her encephalopathy has been waxing and waning. She does have a history of dementia which complicates her symptoms and she was hospitalized which can cause hospital delirium. Her daughter stated that she would rather take her home so this encephalopathy does not worsen while being in the hospital. This seems very reasonable as patient has been treated for urinary tract infection with IV antibiotics for 3 days already. Patient can also follow-up with Urology for frequent urinary tract infections. Patient will be discharged home she has 24 hour care with her children and safe for discharge at this time. Diabetes mellitus. Continue home medications Hyperlipidemia. Continue statin Heart failure with preserved ejection fraction. No decompensation during admission. Continue Lasix Hypothyroidism. Continue levothyroxine GERD. Continue PPI Paroxysmal atrial fibrillation. On Xarelto. Rate controlled. Continue amiodarone and beta-live Time Attestation Discharge Coordination Time (in mins): 35 Quality: Safe Use of Opioids Does Pt have an Active Cancer Diagnosis on the Problem List?: No Quality: Stroke Does the patient have a stroke diagnosis?: No Physical Exam Vital Signs: Vital Signs: Last Vital Signs Temp 98.2 F 11/19/23 07:40 Pulse 82 11/19/23 07:40 Resp 16 11/19/23 07:40 BP 152/74 H 11/19/23 04:26 Pulse Ox 97 11/19/23 07:40 O2 Del Method Room Air 11/19/23 07:40 BMI result Body Mass Index 26.1 Appearing in no acute distress head is normocephalic atraumatic eyes pupils are PERRLA sclera is anicteric mouth throat mucous membranes are intact and moist neck is supple no lymphadenopathy, no JVD noted lung sounds are clear to auscultation heart regular rate rhythm, clear S1, S2 positive bowel sounds, abdomen is soft, nontender neuro patient is alert, confused DS: Data Data Completed and Pending Completed studies during hospitalization [Text1]: Procedures Introduction of Remdesivir Anti-infective into Peripheral Vein, Percutaneous Approach, [employer] 5 (08/17/21) Zoroastrianism of Cardiac Rhythm, Single (06/01/20) Labs on day of discharge: Laboratory Results - last 24 hr 11/18/23 11/18/23 11/18/23 15:51 20:25 22:51 WBC RBC Hgb Hct MCV MCH MCHC RDW Plt Count MPV Absolute Nucleated RBC Nucleated RBC % (auto) POC Glucose 214 H 219 H 234 H 11/19/23 11/19/23 11/19/23 07:25 11:24 12:22 WBC 12.1 H RBC 3.57 L Hgb 11.5 L Hct 33.4 L MCV 93.6 MCH 32.2 MCHC 34.4 RDW 15.5 Plt Count 266 MPV 10.2 Absolute Nucleated RBC 0.000 Nucleated RBC % (auto) 0.0 POC Glucose 419 H* 216 H Preliminary micro results at discharge 11/16/23 21:33 Blood Culture - Preliminary Blood - Venous No growth after 48 hours. 11/16/23 21:23 Blood Culture - Preliminary Blood - Venous No growth after 48 hours. Discharge Plan Discharge Anticipated Discharge Date/Time: 11/19/23 12:25 Patient Disposition: Home, Self-Care Discharge Diagnosis: UTI Acute encephalopathy Referrals: Walt Rincon MD [Physician] - None (Consider schedule an appointment for frequent urinary tract infections) Po,Lorenver O, MD [Primary Care Provider] - 1 Week Discharge Medications: New cefuroxime axetil 500 mg tablet 500 mg PO BID Qty: 4 0RF Continued lactulose 10 gram/15 mL solution 30 ml PO DAILY PRN (Reason: constipation) Qty: 946 1RF cholecalciferol (vitamin D3) 25 mcg (1,000 unit) capsule 25 mcg PO DAILY (DME) FreeStyle Madeline 14 Day Sensor Kit See Rx Instructions .ROUTE .MEDSUPPLY Qty: 1 6RF Rx Instructions: Dx: E11.65 As directed, 14 days (DME) FreeStyle Madeline 14 Day Sensor Kit See Rx Instructions .Route Qty: 6 3RF Rx Instructions: As directed simvastatin 10 mg tablet 10 mg PO BEDTIME Qty: 90 3RF metoprolol succinate 100 mg tablet extended release 24 hr 100 mg PO DAILY 90 Days Qty: 90 3RF amiodarone 200 mg tablet 200 mg PO DAILY 90 Days Qty: 90 2RF travoprost 0.004 % drops 1 drp ophthalmic (eye) BEDTIME acetaminophen 500 mg Tablet 1,000 mg PO TID PRN (Reason: Pain) glycerin (adult) Suppository 1 supp HI DAILY PRN (Reason: Constipation) furosemide 40 mg tablet 40 mg PO DAILY levothyroxine 125 mcg tablet 125 mcg PO DAILY@0600 Xarelto 15 mg tablet 15 mg PO DAILY@1800 insulin glargine U-300 conc [Toujeo SoloStar U-300 Insulin] 300 unit/mL (1.5 mL) insulin pen 11 unit subcut DAILY Rx Instructions: or as directed insulin lispro [Humalog KwikPen Insulin] 100 unit/mL insulin pen 1 sliding scale dose subcut TIDAC Protocol: Insulin Correction Scale Less than or equal to 110 ---- Give (units): 0 111 to 150 Give (units): 0 151 to 200 Give (units): 2 201 to 250 Give (units): 4 251 to 300 Give (units): 6 301 to 350 Give (units): 8 Greater than 350 Give (units): 10 Call MD if Blood Glucose > : 350 (DME) pen needle, diabetic [BD Eveline 2nd Gen Pen Needle] 32 gauge x 5/32 needle See Rx Instructions .ROUTE .COMPLEX Qty: 400 3RF Dose Instruction: USEN TO INJECT INSULIN FOUR TIMES DAILY Rx Instructions: USEN TO INJECT INSULIN FOUR TIMES DAILY albuterol sulfate [Ventolin HFA] 90 mcg/actuation HFA aerosol inhaler 2 puff inhalation Q6H PRN (Reason: shortness of breath or wheezing) Qty: 8.5 0RF metoprolol succinate 25 mg tablet extended release 24 hr 25 mg PO BEDTIME PRN (Reason: high BP ) Rx Instructions: Start w one tab daily in the PM; if BP does not respond add 25mg or 12.5mg at night. Discontinued cephalexin 500 mg capsule 500 mg PO TID Rx Instructions: END DATE: 11/19/23 Discharge Orders: Discharge Order (Routine); Ordered 11/19/23 Ordered By: Clarissa Linares Diet: Advance to usual diet Activity on Discharge: As tolerated Stand Alone Forms: Patient Portal Discharge page Print Language: Palestinian Care Plan Goals: Complete course of antibiotics Consider follow up with Urology for frequent urinary tract infections Health Concerns: UTI Acute encephalopathy Plan of Treatment: Follow-up with primary care provider as needed Take all medications as prescribed Assessment: See discharge summary
--- NOTE | 2023-11-19 12:59 | MHC.CM.PN ---
pt dcd home self care
== END 2023-11-19 14:20 | disposition home or self-care (01) | DRG 871 ==
LOC: HO.ED 23:35 → HO.EDOVER 23:39 → HO.S3 11-17 11:56
PROVIDERS: Physician Assistant Medical; Admitting Provider Student in an Organized Health Care Education/Training Program; Emergency Provider Emergency Medicine; PCP Internal Medicine; Visit Provider Nurse Practitioner Acute Care
DX: A41.9 Sepsis, unspecified organism (principal); G93.41 Metabolic encephalopathy; N39.0 Urinary tract infection, site not specified; E87.21 Acute metabolic acidosis; I50.32 Chronic diastolic (congestive) heart failure; K21.9 Gastro-esophageal reflux disease without esophagitis; N18.32 Chronic kidney disease, stage 3b; E78.2 Mixed hyperlipidemia; E11.22 Type 2 diabetes mellitus with diabetic chronic kidney disease; F03.90 Unspecified dementia, unspecified severity, without behavioral disturbance, psychotic disturbance, mood disturbance, and anxiety; R65.20 Severe sepsis without septic shock; I48.0 Paroxysmal atrial fibrillation; I25.10 Atherosclerotic heart disease of native coronary artery without angina pectoris; Z20.822 Contact with and (suspected) exposure to COVID-19; Z79.4 Long term (current) use of insulin; Z79.01 Long term (current) use of anticoagulants; Z79.890 Hormone replacement therapy; Z79.899 Other long term (current) drug therapy
CPT/HCPCS: 0241U; 36415; 70450; 71046; 80048; 80051; 80076; 81001; 82010; 82040; 82043; 82306; 82310; 82565; 82570; 82803; 82947; 83605; 83690; 83735; 83880; 83970; 84100; 84156; 84484; 84520; 85025; 85027; 85610; 85730; 86140; 87040; 87086; 93005; 99285; J0696; J2405

== ENCOUNTER → 2023-11-16 20:02 | Outpatient (BNV) | payer MEDICARE, SELFPAY | PROVIDERS: Admitting Provider Student in an Organized Health Care Education/Training Program; Emergency Provider Emergency Medicine; PCP Internal Medicine; Visit Provider Internal Medicine Cardiovascular Disease | DX: R94.31 Abnormal electrocardiogram [ECG] [EKG] (principal) | CPT/HCPCS: 93010 ==

== ENCOUNTER → 2023-11-16 23:20 | Outpatient (BNV) | payer MEDICARE, SELFPAY | PROVIDERS: Admitting Provider Student in an Organized Health Care Education/Training Program; Emergency Provider Emergency Medicine; PCP Internal Medicine; Visit Provider Student in an Organized Health Care Education/Training Program | DX: A41.9 Sepsis, unspecified organism (principal); N39.0 Urinary tract infection, site not specified | CPT/HCPCS: 99223; 99232; 99233; 99239; 99499 ==

== ENCOUNTER 2023-11-22 11:49 | Outpatient (AMB) | payer MEDICARE, SELFPAY ==
--- NOTE | 2023-11-22 11:52 | MHC.PC.OV ---
Vital Signs 11/22/23 11:55 Height 4 ft 11 in Weight 138 lb BMI 27.9 BP 100/58 L Blood Pressure Location Lt brachial Position Sitting Pulse 97 Pulse Source Pulse Oximeter Pulse Oximetry (%) 98 Oxygen Delivery Method Room Air Intake Visit Reasons: tcm- acute mental status changes Intake Note: Patient is here for hospital discharge follow up. Patient was discharged from [facility] on 11/19/23 Development Representative Required: No Allergies codeine Allergy (Intermediate, Verified 11/22/23 12:00) TACHYCARDIA nitrofurantoin [Macrobid] Allergy (Unknown, Verified 11/22/23 12:00) confusion pravastatin Allergy (Unknown, Verified 11/22/23 12:00) Unknown rosuvastatin [Crestor] Allergy (Unknown, Verified 11/22/23 12:00) Unknown Sulfa (Sulfonamide Antibiotics) Allergy (Unknown, Verified 11/22/23 12:00) unknown sulfamethoxazole [From Bactrim] Allergy (Unknown, Verified 11/22/23 12:00) Unknown trimethoprim [From Bactrim] Allergy (Unknown, Verified 11/22/23 12:00) Unknown amlodipine Adverse Reaction (Intermediate, Verified 11/22/23 12:00) leg swelling digoxin Adverse Reaction (Intermediate, Verified 11/22/23 12:00) Confusion Medication List - Last Reconciled 11/22/23 by Brina Coyle PA-C acetaminophen 1,000 mg PO TID PRN albuterol sulfate 90 mcg/actuation (Ventolin HFA) 2 puffs inhalation Q6H PRN amiodarone 200 mg PO DAILY 90 days cholecalciferol (vitamin D3) 25 mcg PO DAILY flash glucose sensor (FreeStyle Madeline 14 Day Sensor kit) Dx: E11.65 As directed, 14 days flash glucose sensor (FreeStyle Madeline 14 Day Sensor kit) As directed furosemide 40 mg PO DAILY glycerin (adult) 1 supp [place] DAILY PRN insulin glargine U-300 conc (Toujeo SoloStar U-300 Insulin) 11 units subcut DAILY insulin lispro (Humalog KwikPen (U-100) Insulin) 1 sliding scale dose See Protocol subcut TIDAC lactulose 30 mL PO DAILY PRN levothyroxine 125 mcg PO DAILY@0600 metoprolol succinate ER 100 mg PO DAILY 90 days metoprolol succinate ER 25 mg PO BEDTIME PRN pen needle, diabetic (BD Eveline 2nd Gen Pen Needle) USEN TO INJECT INSULIN FOUR TIMES DAILY rivaroxaban (Xarelto) 15 mg PO DAILY@1800 simvastatin 10 mg PO BEDTIME travoprost 0.004% 1 drp ophthalmic (eye) BEDTIME Tobacco use date assessed: 09/17/23 Fall risk assessment: No Falls in past year Last assessed Fall Risk: 11/22/23 Dental Screening Dental Screen Date: 06/11/23 HPI tcm- acute mental status changes HPI Details 88-year-old overweight female brittle diabetic with atrial fibrillation, coronary artery disease, congestive heart failure, hypothyroidism, hypertension, obstructive sleep apnea, hypercholesterolemia last seen 09/2023 coming in for hospital follow up. In review of the notes, patient was seen in [facility] ED 11/16/2023 for continued fever in the setting of urinary tract infection. She had previously been treated outpatient for UTI with oral cephalosporin however symptoms continued to worsen. In the ED patient was found to have encephalopathy secondary to sepsis and urinary tract infection. Patient was started on IV Rocephin. Patient was discharged 11/19/23 with oral antibiotics and follow up with Urology. Patient presents today with her daughter. Daughter reports her mentation has improved since discharge from the hospital. Patient does still report some mild pressure with urination and frequent urination. They do have a follow up coming up with Urology in December. She has not had any fevers since being home and does not report any additional confusion. Daughter also reports she was having issues with constipation which resolved after a 0.5 gal of MiraLax. TCM TCM Information Date of Discharge 11/19/23 Discharged From [facility] Medical History Urinary tract infection with fever Persistent atrial fibrillation Left thigh pain Abdominal mass, LUQ (left upper quadrant) Iliotibial band syndrome of left side UTI (urinary tract infection) Herpes zoster Orthostatic hypotension Acute hyponatremia Weakness COVID-19 Breast asymmetry Atrial fibrillation with rapid ventricular response Hyperkalemia Essential hypertension Atherosclerotic cardiovascular disease Chronic heart failure with preserved ejection fraction (HFpEF) Iliotibial band syndrome of right side Disc degeneration, lumbar Cognitive dysfunction 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 Atrial fibrillation Osteopenia Hypothyroid Spinal stenosis of lumbar region Degenerative disc disease, lumbar Type 2 diabetes mellitus with hyperglycemia Surgical History History of removal of cyst History of appendectomy History of eye surgery History of cataract surgery History of cholecystectomy History of section History of knee replacement History of hip replacement Family History Father CVD (cardiovascular disease) Mother CVD (cardiovascular disease) Stroke Social History Household Members: None Household Members Other:: son comes 3 days a week, daughter lives 5 minutes away visits frequently Housing: House Do you presently have 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 How often do you have a drink containing alcohol?: Never 3. How often do you have six or more drinks on one occasion?: Never Total Score: 0 DILIP-7 AMB Questionnaire DILIP-7 Date DILIP - 7 assessed: 06/11/23 Source: Developed by Drs. Akbar Rocha, Theodora Huddleston, Woo Garcia and colleagues, with an educational cesia from [employer]. Review of Systems Const Denies body aches, Denies chills, Denies fever(s) and Denies poor appetite Eyes Reports no additional complaints ENT Reports no additional complaints Card Denies chest pain and Denies lightheadedness Resp Reports no additional complaints GI Denies abdominal pain, Reports constipation, Denies diarrhea, Denies nausea and Denies vomiting Reports as per HPI Musc Reports no additional complaints and Denies abnormal gait Skin/Breast Reports system reviewed and no additional complaints, except as documented Neuro Denies abnormal gait Psych Reports no additional complaints Physical exam (Primary Care) Vital Signs: Last Vital Signs Pulse 97 11/22/23 11:55 BP 100/58 L 11/22/23 11:55 Pulse Ox 98 08/15/24 11:55 Oxygen Delivery Method Room Air 11/22/23 11:55 BMI result Body Mass Index 27.9 Tobacco/Smoking Status: Tobacco use Status Tobacco use date assessed 09/17/23 11/22/23 11:52 Patient Tobacco Use Status Former Tobacco user 11/22/23 11:52 Tobacco use type Cigarette 11/22/23 11:52 e-Cigarette/Vaping Use Former Use 11/22/23 11:52 Thrive Assessment: Date of Thrive Assessment Date Thrive assessed 11/17/23 11/22/23 11:52 Const General: cooperative, healthy appearing, comfortable and no acute distress Orientation/consciousness: patient oriented x3 HENMT Head: Yes normocephalic Ears: hearing grossly normal bilaterally General nose exam: Normal external nose present Eyes General: appearance normal, both eyes and all related structures Conjunctivae: conjunctivae normal Neck Neck: Yes full ROM and Yes no lymphadenopathy Resp Effort & Inspection: normal respiratory effort Auscultation: clear to auscultation bilaterally, no crackles, no rales, no rhonchi and no wheezes Cardio Rate: regular rate Rhythm: regular rhythm GI Palpation (GI): Soft to palpation, not firm, nontender, no guarding and not rigid General: Yes no CVA tenderness Back/Spine/Pelvis Back: no CVA tenderness Skin General skin exam: no rashes or lesions noted Neuro General: patient oriented x3 Gait exam (Neuro): Normal gait present Extrem General: Yes normal to inspection, Yes full ROM and No edema Psych Affect: normal affect Attitude: cooperative Insight: Good insight present (Psych) Judgement: Good judgement present (Psych) Results AMB Urinalysis, Automated UA Leukoctes 70 David/uL Last Edit by DANGELO Khan on 11/22/23 12:49 UA Nitrite Negative Last Edit by DANGELO Khan on 11/22/23 12:49 UA Urobilinogen 0 mg/dL Last Edit by DANGELO Khan on 11/22/23 12:49 UA Protein 15 mg/dL Last Edit by DANGELO Khan on 11/22/23 12:49 UA pH 6.0 Last Edit by DANGELO Khan on 11/22/23 12:49 UA Blood 0 Vinicius/uL Last Edit by DANGELO Khan on 11/22/23 12:49 UA Specific Nebo 1.015 Last Edit by Jen Mark DANGELO on 11/22/23 12:49 UA Ketone Positive Last Edit by JIAN KhanA on 11/22/23 12:49 UA Bilirubin 0 mg/dL Last Edit by Jen Mark JIANA on 11/22/23 12:49 UA Glucose 250 mg/dL Last Edit by Jen Mark DANGELO on 11/22/23 12:49 Results Reviewed Results Reviewed: Laboratory Last Values Urine pH (Auto) 6.0 11/22/23 12:04 Specific Nebo (Auto) 1.015 11/22/23 12:04 Urine Protein (Auto) 15 mg/dL 11/22/23 12:04 Glucose (UA)(Auto) 250 mg/dL 11/22/23 12:04 Urine Ketones (Auto) Positive 11/22/23 12:04 Urine Blood (Auto) 0 Vinicius/uL 11/22/23 12:04 Urine Nitrite (Auto) Negative 11/22/23 12:04 Urine Bilirubin (Auto) 0 mg/dL 11/22/23 12:04 Urine Urobilinogen (Auto) 0 mg/dL 11/22/23 12:04 Leukocyte Esterase (Auto) 70 David/uL 11/22/23 12:04 Assessment and Plan Assessment & Plan (1) UTI (urinary tract infection): Code(s): N39.0 - Urinary tract infection, site not specified Plan: Patient was found to have recurrent UTIs. Most recent UTI did result in encephalopathy in setting of sepsis resulting in hospitalization. Urinalysis today in the office was positive for leukocytes and she was unable to provide a sample for culture. Discussed with patient and her daughter risk versus benefit for additional treatment for urinary tract infection. After discussion doxycycline was prescribed for 7 days with a repeat urinalysis and culture to be completed on day 8. Plan to follow up with Urology at next earliest appointment or sooner if symptoms worsen. (2) Encephalopathy: Code(s): G93.40 - Encephalopathy, unspecified Plan: Patient was found to have encephalopathy while in the hospital in the setting of sepsis. Mental status was difficult to assess due to history of dementia. Daughter reports mentation has greatly improved since discharge from the hospital. She appears to be back to her baseline. Plan This note was constructed using voice recognition software. While every effort has been made to ensure accuracy and wastewater superintendent, still areas may have been included sometimes these areas may affect the content or meeting of the given symptoms. Total time spent caring for the patient today was 30 minutes. This includes time spent before the visit reviewing the chart, time spent during the visit, and time spent after the visit and documentation. Orders: Orders UA CC w/rflx Micro + Cult Today N39.0 - Urinary tract infection, site not specified AMB Urinalysis Automated Today N39.0 - Urinary tract infection, site not specified Medications: New doxycycline hyclate 100 mg PO BID 7 days 14 caps 0RF Coding Level of Care Code TCM Mod MDM <= 7 Days Diagnoses UTI (urinary tract infection) N39.0 Encephalopathy G93.40
[2023-11-22 11:55] VITALS: BP 100/58; PULSE 97; O2SAT 98; BMI 27.9
== END 2023-11-22 12:41 | disposition home or self-care (01) ==
PROVIDERS: PCP Internal Medicine
DX: N39.0 Urinary tract infection, site not specified (principal); G93.40 Encephalopathy, unspecified
CPT/HCPCS: 81003; 99495

== ENCOUNTER 2023-12-07 13:24 | Outpatient (REF) | payer MEDICARE, SELFPAY ==
[2023-12-07 13:50] LABS: MANUAL DIFF FLAG NO
[2023-12-07 13:55] LABS: Basophils Absolute Auto 0.1 X10*3/uL (0.0-0.2); Basophils Percent Auto 1.1 % (0-2); Eosinophils Absolute Auto 0.1 X10*3/uL (0.0-0.4); Eosinophils Percent Auto 1.9 % (0-4); Hematocrit 35.9 % (37.0-47.0); Imm Gran Abs Auto 0.03 X10*3/uL (0.00-0.03); Imm Gran Pct Auto 0.4 % (0.0-0.4); Lymphocytes Absolute Auto 1.4 X10*3/uL (1.2-4.9); Lymphocytes Percent Auto 19.8 % (20-40); Mean Corpuscular HGB Conc 33.4 g/dl (31.0-35.0); Mean Corpuscular Hemoglobin 31.8 pg (27.0-33.0); Mean Corpuscular Volume 95.2 fL (80.0-98.0); Mean Platelet Volume 10.2 fL (9.4-12.3); Monocytes Absolute Auto 0.7 X10*3/uL (0.1-1.2); Monocytes Percent Auto 9.6 % (2-11); Neutrophils Absolute Auto 4.9 x10*3/uL (2.0-8.3); Neutrophils Percent Auto 67.2 % (45-73); Platelet Count 217 X10*3/uL (160-400); Red Blood Count 3.77 X10*6/uL (4.20-5.50); Red Cell Distribution Width 15.3 % (11.0-16.0); White Blood Count 7.3 X10*3/uL (4.8-10.8)
[2023-12-07 14:09] LABS: Lactic Acid 2.3 mmol/L (0.5-2.0)
[2023-12-07 14:17] LABS: B Type Natriuretic Peptide 663 pg/mL (<100)
[2023-12-07 14:34] LABS: Alanine Aminotransferase 18 U/L (0-31); Albumin Level 3.9 g/dL (3.5-5.0); Alkaline Phosphatase 94 U/L (39-117); Anion Gap 12 (12-20); Aspartate Amino Transferase 14 U/L (5-31); Bilirubin Total 0.5 mg/dL (0.0-1.0); Blood Urea Nitrogen 24 mg/dL (9-16); Calcium 9.6 mg/dL (8.4-10.2); Carbon Dioxide 32 mmol/L (22-29); Chloride 97 mmol/L (96-108); Estimated Glomerular Filt Rate 41; Glucose Random 241 mg/dL (60-115); Sodium 137 mmol/L (135-145); Total Protein 6.6 g/dL (6.5-8.0)
[2023-12-07 15:46] LABS: Appearance Urine Clear; Color Urine Yellow; Glucose Urine UA >=1000 mg/dL (Negative); Leukocyte Esterase Urine Small (1+) (Negative); Nitrite Urine Negative (Negative); Specific Gravity - Urine 1.015 (1.005-1.025); UMIC TRIGGER UACC YES; Urine Blood Negative (Negative); Urine Ketones Negative (Negative); Urine Protein Trace mg/dL (Neg-Trace)
[2023-12-07 15:49] LABS: Reflex Lactate? Lactic Acid Added
[2023-12-07 15:52] LABS: Bacteria Urine None Seen (None Seen); Hyaline Casts Urine 0-2 /LPF (0-2); RBC Urine 0-2 /HPF (0-2); Squamous Epithelial Cell Urine 0-2 /HPF (0-2); UACC Culture Trigger YES; WBC Urine 21-50 /HPF (0-5)
== END 2023-12-07 13:25 | disposition home or self-care (01) ==
LOC: HO.LAB 13:24
PROVIDERS: PCP Internal Medicine; Visit Provider Internal Medicine
DX: N39.0 Urinary tract infection, site not specified (principal); I50.32 Chronic diastolic (congestive) heart failure
CPT/HCPCS: 36415; 80053; 81001; 83605; 83880; 85025; 87086

== ENCOUNTER 2023-12-21 09:06 | Outpatient (AMB) | payer MEDICARE, SELFPAY ==
--- NOTE | 2023-12-21 09:09 | A.OFFVIS_ITS ---
Intake Visit Reasons: UTI/sepsis Intake Note: allergies: codeine, macrobid, pravastatin, sulfa antibiotics, bactrim, amlodipine, digoxin medications: none visit reason: new patient- UTI/sepsis Allergies codeine Allergy (Intermediate, Verified 11/22/23 12:00) TACHYCARDIA nitrofurantoin [Macrobid] Allergy (Unknown, Verified 11/22/23 12:00) confusion pravastatin Allergy (Unknown, Verified 11/22/23 12:00) Unknown rosuvastatin [Crestor] Allergy (Unknown, Verified 11/22/23 12:00) Unknown Sulfa (Sulfonamide Antibiotics) Allergy (Unknown, Verified 11/22/23 12:00) unknown sulfamethoxazole [From Bactrim] Allergy (Unknown, Verified 11/22/23 12:00) Unknown trimethoprim [From Bactrim] Allergy (Unknown, Verified 11/22/23 12:00) Unknown amlodipine Adverse Reaction (Intermediate, Verified 11/22/23 12:00) leg swelling digoxin Adverse Reaction (Intermediate, Verified 11/22/23 12:00) Confusion Medication List - Last Reconciled 12/21/23 by Walt Rincon MD acetaminophen 1,000 mg PO TID PRN albuterol sulfate 90 mcg/actuation (Ventolin HFA) 2 puffs inhalation Q6H PRN amiodarone 200 mg PO DAILY 90 days cholecalciferol (vitamin D3) 25 mcg PO DAILY flash glucose sensor (FreeStyle Madeline 14 Day Sensor kit) Dx: E11.65 As directed, 14 days flash glucose sensor (FreeStyle Madeline 14 Day Sensor kit) As directed furosemide 40 mg PO DAILY glycerin (adult) 1 supp [place] DAILY PRN insulin glargine U-300 conc (Toujeo SoloStar U-300 Insulin) 11 units subcut DAILY insulin lispro (Humalog KwikPen (U-100) Insulin) 1 sliding scale dose See Protocol subcut TIDAC lactulose 30 mL PO DAILY PRN levothyroxine 125 mcg PO DAILY@0600 metoprolol succinate ER 100 mg PO DAILY 90 days metoprolol succinate ER 25 mg PO BEDTIME PRN pen needle, diabetic (BD Eveline 2nd Gen Pen Needle) USEN TO INJECT INSULIN FOUR TIMES DAILY rivaroxaban (Xarelto) 15 mg PO DAILY@1800 simvastatin 10 mg PO BEDTIME travoprost 0.004% 1 drp ophthalmic (eye) BEDTIME HPI Comments Details: Gerri is an 88 year old female who is here with her daughter. Gerri was hospitalized in November, and treated for UTI sepsis. The patient has some memory loss. In discussion with her daughter, Gerri was wearing a pad which may not have been changed regularly, also discussed importance of hygiene, especially post bowel movements. UA - trace blood, +protein. will send urine for surveillance urine c/s. Further evaluation with renal US and fu office cysto. Discussed trial of OTC cranberry supplements. [facility] Medical History Urinary tract infection with fever Persistent atrial fibrillation Left thigh pain Abdominal mass, LUQ (left upper quadrant) Iliotibial band syndrome of left side UTI (urinary tract infection) Herpes zoster Orthostatic hypotension Acute hyponatremia Weakness COVID-19 Breast asymmetry Atrial fibrillation with rapid ventricular response Hyperkalemia Essential hypertension Atherosclerotic cardiovascular disease Chronic heart failure with preserved ejection fraction (HFpEF) Iliotibial band syndrome of right side Disc degeneration, lumbar Cognitive dysfunction 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 Atrial fibrillation Osteopenia Hypothyroid Spinal stenosis of lumbar region Degenerative disc disease, lumbar Type 2 diabetes mellitus with hyperglycemia Surgical History History of removal of cyst History of appendectomy History of eye surgery History of cataract surgery History of cholecystectomy History of section History of knee replacement History of hip replacement Family History Father CVD (cardiovascular disease) Mother CVD (cardiovascular disease) Stroke Social History Household Members: None Household Members Other:: son comes 3 days a week, daughter lives 5 minutes away visits frequently Housing: House Do you presently have visiting nurse or other home services: No (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) Alcohol intake: never Comment: post cardioversion Patient Tobacco Use Status: Former Tobacco user Tobacco use type: Cigarette Years Smoked: <1 e-Cigarette/Vaping Use: Former Use Second Hand Smoke Exposure: No Advance Directives Date on File: 08/29/21 service: No Current occupational status: retired Cognitive needs: Yes (Walker) Hearing needs: No Vision needs: Yes Review of Systems Const All systems reviewed & are unremarkable except as noted in HPI and below Reports no additional complaints Eyes Reports no additional complaints ENT Reports no additional complaints Card Reports no additional complaints Resp Reports no additional complaints GI Reports no additional complaints Reports as per HPI Musc Reports no additional complaints Skin/Breast Reports system reviewed and no additional complaints, except as documented Neuro Reports no additional complaints Psych Reports no additional complaints Endo Reports no additional complaints Herrera/Lymph Reports no additional complaints Aller/Immun Reports no additional complaints Physical Exam Const General: cooperative, healthy appearing and no acute distress Orientation/consciousness: patient oriented x3 HEENT Head: Yes normal to inspection, Yes normocephalic and Yes atraumatic Eyes Conjunctivae: conjunctivae normal Neck Neck: Yes normal visual inspection and Yes trachea midline Chest Chest palpation & inspection: normal inspection of the chest Resp Effort & Inspection: normal respiratory effort Cardio Rate: regular rate GI Inspection: Yes normal to inspection Skin General skin exam: no rashes or lesions noted Neuro General: patient oriented x3 Psych Appearance: grossly normal Results AMB Urinalysis, Automated UA Leukoctes 0 David/uL Last Edit by Heide Barber on 12/21/23 09:55 UA Nitrite Negative Last Edit by Heide Barber on 12/21/23 09:55 UA Urobilinogen 0.2 mg/dL Last Edit by Heide Barber on 12/21/23 09:5 5 UA Protein 30 mg/dL Last Edit by Heide Barber on 12/21/23 09:55 UA pH 6.0 Last Edit by Heide Barber on 12/21/23 09:55 UA Blood 10 Vinicius/uL Last Edit by Heide Barber on 12/21/23 09:55 UA Specific Lillian 1.010 Last Edit by Heide Barber on 12/21/23 09: 55 UA Ketone Negative Last Edit by Heide Barber on 12/21/23 09:55 UA Bilirubin 0 mg/dL Last Edit by Heide Barber on 12/21/23 09:55 UA Glucose 1000 mg/dL Last Edit by Heide Barber on 12/21/23 09:55 Results Reviewed Results Reviewed: Laboratory Last Values Urine pH (Auto) 6.0 12/21/23 09:27 Specific Lillian (Auto) 1.010 12/21/23 09:27 Urine Protein (Auto) 30 mg/dL 12/21/23 09:27 Glucose (UA)(Auto) 1000 mg/dL 12/21/23 09:27 Urine Ketones (Auto) Negative 12/21/23 09:27 Urine Blood (Auto) 10 Vinicius/uL 12/21/23 09:27 Urine Nitrite (Auto) Negative 12/21/23 09:27 Urine Bilirubin (Auto) 0 mg/dL 12/21/23 09:27 Urine Urobilinogen (Auto) 0.2 mg/dL 12/21/23 09:27 Leukocyte Esterase (Auto) 0 David/uL 12/21/23 09:27 Assessment & Plan Assessment & Plan (1) UTI (urinary tract infection): Code(s): N39.0 - Urinary tract infection, site not specified Category: Medical (2) Renal cyst, left: Code(s): N28.1 - Cyst of kidney, acquired Category: Medical (3) Hematuria: Code(s): R31.9 - Hematuria, unspecified Category: Medical Plan office cystoscopy Orders: Orders AMB Urinalysis Automated 12/21/23 N39.0 - Urinary tract infection, site not specified Urine Culture 12/21/23 N39.0 - Urinary tract infection, site not specified AMB Post Void Residual by ultrasound 12/21/23 N39.0 - Urinary tract infection, site not specified Urine Culture 12/25/23 N39.0 - Urinary tract infection, site not specified Patient Instructions: The patient had an opportunity to ask questions regarding treatment plan. The patient expressed understanding and agreement with the above treatment plan. The patient is aware they should contact our office by phone for worsening of their current condition or the appearance of new symptoms. Compliance is encouraged with any medications and followup testing that is ordered. It is a privilege to be allowed the opportunity to participate in the urologic care of your patient. If you have any questions or concerns regarding treatment for the above conditions please do not hesitate to contact me. The office telephone contact is [phone]. This note is constructed in part using voice recognition software. While every effort has been made to ensure accuracy land surveyor manager errors may have been included. Yours sincerely, Walt Rincon MD Coding Level of Care Code New Pt Level 4 (89413) Diagnoses UTI (urinary tract infection) N39.0 Renal cyst, left N28.1 Hematuria R31.9
== END 2023-12-21 09:56 | disposition home or self-care (01) ==
PROVIDERS: PCP Internal Medicine; Visit Provider Urology
DX: N39.0 Urinary tract infection, site not specified (principal); N28.1 Cyst of kidney, acquired; R31.9 Hematuria, unspecified
CPT/HCPCS: 99204

== ENCOUNTER → 2023-12-21 09:06 | Outpatient (BNVA) | payer MEDICARE, SELFPAY | PROVIDERS: PCP Internal Medicine; Visit Provider Urology | DX: N39.0 Urinary tract infection, site not specified (principal); N28.1 Cyst of kidney, acquired; R31.9 Hematuria, unspecified | CPT/HCPCS: 81003; 99202 ==

== ENCOUNTER 2023-12-24 10:47 | Outpatient (AMB) | payer MEDICARE, SELFPAY ==
[2023-12-24 10:54] VITALS: BP 144/60; PULSE 82; BMI 27.1
--- NOTE | 2023-12-24 10:54 | MHC.OFFVIS ---
Vital Signs 12/24/23 10:54 Height 4 ft 11 in Weight 134 lb 0.657 oz BMI 27.1 BP 144/60 H Blood Pressure Location Rt brachial Position Sitting Pulse 82 Intake Visit Reasons: 6 mth fu Neonatal Nurse Practitioner Required: No Accompanied by: Daughter Allergies codeine Allergy (Intermediate, Verified 11/22/23 12:00) TACHYCARDIA nitrofurantoin [Macrobid] Allergy (Unknown, Verified 11/22/23 12:00) confusion pravastatin Allergy (Unknown, Verified 11/22/23 12:00) Unknown rosuvastatin [Crestor] Allergy (Unknown, Verified 11/22/23 12:00) Unknown Sulfa (Sulfonamide Antibiotics) Allergy (Unknown, Verified 11/22/23 12:00) unknown sulfamethoxazole [From Bactrim] Allergy (Unknown, Verified 11/22/23 12:00) Unknown trimethoprim [From Bactrim] Allergy (Unknown, Verified 11/22/23 12:00) Unknown amlodipine Adverse Reaction (Intermediate, Verified 11/22/23 12:00) leg swelling digoxin Adverse Reaction (Intermediate, Verified 11/22/23 12:00) Confusion Medication List - Last Reconciled 12/24/23 by Gene Morrow MD acetaminophen 1,000 mg PO TID PRN albuterol sulfate 90 mcg/actuation (Ventolin HFA) 2 puffs inhalation Q6H PRN amiodarone 200 mg PO DAILY 90 days cholecalciferol (vitamin D3) 25 mcg PO DAILY flash glucose sensor (FreeStyle Madeline 14 Day Sensor kit) Dx: E11.65 As directed, 14 days flash glucose sensor (FreeStyle Madeline 14 Day Sensor kit) As directed furosemide 40 mg PO DAILY glycerin (adult) 1 supp MD DAILY PRN insulin glargine U-300 conc (Toujeo SoloStar U-300 Insulin) 11 units subcut DAILY insulin lispro (Humalog KwikPen (U-100) Insulin) 1 sliding scale dose See Protocol subcut TIDAC lactulose 30 mL PO DAILY PRN levothyroxine 125 mcg PO DAILY@0600 liothyronine (Cytomel) 5 mcg PO DAILY metoprolol succinate ER 100 mg PO DAILY 90 days metoprolol succinate ER 25 mg PO BEDTIME PRN pen needle, diabetic (BD Eveline 2nd Gen Pen Needle) USEN TO INJECT INSULIN FOUR TIMES DAILY rivaroxaban (Xarelto) 15 mg PO DAILY@1800 simvastatin 10 mg PO BEDTIME travoprost 0.004% 1 drp ophthalmic (eye) BEDTIME HPI Comments Details: Gerri returns for follow-up regarding atrial fibrillation and diastolic congestive heart failure. She has been cardioverted around 4 times or so in the last few years. She was doing okay on Amiodarone but still went back into atrial fibrillation. We tried just rate control with digoxin but she had side effects from that and then went back on amiodarone for rather rate control. Overall, seems to be just about the same as before. No clear-cut angina. Some exertional shortness of breath but has been like this for a long time. Nothing more recent. [facility] Medical History Urinary tract infection with fever Persistent atrial fibrillation Left thigh pain Abdominal mass, LUQ (left upper quadrant) Iliotibial band syndrome of left side UTI (urinary tract infection) Herpes zoster Orthostatic hypotension Acute hyponatremia Weakness COVID-19 Breast asymmetry Atrial fibrillation with rapid ventricular response Hyperkalemia Essential hypertension Atherosclerotic cardiovascular disease Chronic heart failure with preserved ejection fraction (HFpEF) Iliotibial band syndrome of right side Disc degeneration, lumbar Cognitive dysfunction 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 Atrial fibrillation Osteopenia Hypothyroid Spinal stenosis of lumbar region Degenerative disc disease, lumbar Type 2 diabetes mellitus with hyperglycemia Surgical History History of removal of cyst History of appendectomy History of eye surgery History of cataract surgery History of cholecystectomy History of section History of knee replacement History of hip replacement Family History Father CVD (cardiovascular disease) Mother CVD (cardiovascular disease) Stroke Social History Household Members: None Household Members Other:: son comes 3 days a week, daughter lives 5 minutes away visits frequently Housing: House Do you presently have visiting nurse or other home services: 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) Alcohol intake: never Comment: post cardioversion Patient Tobacco Use Status: Former Tobacco user Tobacco use type: Cigarette Years Smoked: <1 e-Cigarette/Vaping Use: Former Use Second Hand Smoke Exposure: No Advance Directives Date on File: 08/29/21 service: No Current occupational status: retired Cognitive needs: Yes (Walker) Hearing needs: No Vision needs: Yes Review of Systems Const Denies chills, Denies fatigue, Denies fever(s), Denies weight gain and Denies weight loss ENT Denies dizziness Card Denies chest pain, Denies leg edema, Denies lightheadedness, Denies palpitations, Denies dyspnea on exertion, Denies orthopnea and Denies other Resp Denies cough and Denies dyspnea on exertion GI Denies hematochezia and Denies change in stool character Musc Denies abnormal gait, Denies muscle weakness, Denies numbness, Denies radiating pain into limb and Denies tingling Neuro Denies abnormal gait, Denies dizziness, Denies numbness and Denies tingling Endo Denies fatigue and Denies palpitations Physical Exam Vital Signs: Last Vital Signs Pulse 82 12/24/23 10:54 BP 144/60 H 12/24/23 10:54 BMI result Body Mass Index 27.1 Const General: comfortable and no acute distress Orientation/consciousness: patient oriented x3 HEENT Other: Unremarkable Head: Yes normal to inspection Neck Neck: Yes normal visual inspection Chest Chest palpation & inspection: normal inspection of the chest Resp Auscultation: clear to auscultation bilaterally Cardio Palpation: normal PMI Heart sounds: S1 normal heart sound present, S2 normal heart sound present, no gallops, Murmur heart sound present systolic II/ and at the right sternal border and no rubs GI Palpation (GI): Soft to palpation Back/Spine/Pelvis Other: unremarkable Skin General skin exam: no rashes or lesions noted Neuro General: patient oriented x3 Extrem General: Yes normal to inspection Psych Mental Status: mental status grossly normal Office Procedures EKG Details: EKG with atrial fibrillation at a rate of 82/Min; leftward axis; can not exclude old anterior infarct. [id number], Complete Assessment & Plan Assessment & Plan (1) Chronic combined systolic and diastolic CHF (congestive heart failure): Code(s): I50.42 - Chronic combined systolic (congestive) and diastolic (congestive) heart failure Category: Medical Plan: In the last echocardiogram, LVEF is 38%. Basal inferior akinesis. Clinically, she seems euvolemic. Continue diuretics. On beta-blockers. We discussed about optimizing medical regimen with Angelina, but daughter states she would rather not take any further medications considering her age. She feels that she is already on too many medications Has also had hyperkalemia issues in the past. (2) Atherosclerotic cardiovascular disease: Code(s): I25.10 - Atherosclerotic heart disease of [place] coronary artery without angina pectoris Category: Medical Plan: Cardiac catheterization-2016 LAD-mid LAD 50%; mild to moderate disease beyond the mid segment; circumflex-2nd marginal-midsection 85%; RCA-moderate diffuse disease. Clinically, no overt angina. Continue statins. Stable LDL. (3) Persistent atrial fibrillation: Code(s): I48.19 - Other persistent atrial fibrillation Category: Medical Plan: Has been cardioverted several times in the past and still back in atrial fibrillation and also in spite of amiodarone. Hence we will continue the amiodarone, more for rate control. She could not tolerate other medications like digoxin. Remains on beta-blockers. Continue anticoagulation. (4) Essential hypertension: Code(s): I10 - Essential (primary) hypertension Category: Medical Plan: Numerous med changes over time. No further changes today. (5) Hyperkalemia: Code(s): E87.5 - Hyperkalemia Category: Medical Plan: Off spironolactone. Last potassium 3.9. Plan Discussed with daughter. Orders: Orders CA echo transthoracic complete 6 Months I25.10 - Atherosclerotic heart disease of [place] coronary artery without angina pectoris, I50.9 - Heart failure, unspecified Coding Level of Care Code Est Pt Level 4 (44628) Diagnoses Chronic combined systolic and diastolic CHF (congestive heart failure) I50.42 Atherosclerotic cardiovascular disease I25.10 Persistent atrial fibrillation I48.19 Essential hypertension I10 Hyperkalemia E87.5 CPT Codes EKG - CPT: 32404-Kenxlitjilcztqzke, Complete ([id number])
== END 2023-12-24 11:21 | disposition home or self-care (01) ==
PROVIDERS: PCP Internal Medicine; Visit Provider Internal Medicine
DX: I50.42 Chronic combined systolic (congestive) and diastolic (congestive) heart failure (principal); I25.10 Atherosclerotic heart disease of native coronary artery without angina pectoris; I48.19 Other persistent atrial fibrillation; I10 Essential (primary) hypertension; E87.5 Hyperkalemia
CPT/HCPCS: 93010; 99214

== ENCOUNTER 2023-12-24 10:47 | Outpatient (REF) | payer MEDICARE, SELFPAY | END 2023-12-24 10:48 | disposition home or self-care (01) | LOC: HO.LNP 10:47 | PROVIDERS: PCP Internal Medicine; Visit Provider Urology | DX: N39.0 Urinary tract infection, site not specified (principal); I11.0 Hypertensive heart disease with heart failure; I50.42 Chronic combined systolic (congestive) and diastolic (congestive) heart failure; I25.10 Atherosclerotic heart disease of native coronary artery without angina pectoris; I48.19 Other persistent atrial fibrillation; E87.5 Hyperkalemia | CPT/HCPCS: 87086; 93005; 99212 ==

== ENCOUNTER → 2023-12-25 13:39 | Outpatient (BNV) | payer MEDICARE, SELFPAY | PROVIDERS: PCP Internal Medicine; Visit Provider Urology | DX: N39.0 Urinary tract infection, site not specified (principal) | CPT/HCPCS: 81003 ==

== ENCOUNTER 2024-01-08 11:51 | Outpatient (REF) | payer MEDICARE, SELFPAY ==
[2024-01-08 13:43] LABS: Appearance Urine Clear; Color Urine Yellow; Glucose Urine UA 500 mg/dL (Negative); Leukocyte Esterase Urine Small (1+) (Negative); Nitrite Urine Negative (Negative); PH 6.5 (5.0-9.0); UMIC TRIGGER UA YES; Urine Blood Negative (Negative); Urine Ketones Negative (Negative); Urine Protein 30 (1+) mg/dL (Neg-Trace)
[2024-01-08 13:50] LABS: Bacteria Urine None Seen (None Seen); Hyaline Casts Urine 0-2 /LPF (0-2); RBC Urine 0-2 /HPF (0-2); Squamous Epithelial Cell Urine 0-2 /HPF (0-2); WBC Urine 21-50 /HPF (0-5)
== END 2024-01-08 11:52 | disposition home or self-care (01) ==
LOC: HO.LAB 11:51
PROVIDERS: PCP Internal Medicine; Visit Provider Urology
DX: N39.0 Urinary tract infection, site not specified (principal)
CPT/HCPCS: 81001; 87086

== ENCOUNTER 2024-01-31 10:25 | Outpatient (REF) | payer MEDICARE, SELFPAY ==
--- NOTE | ~2024-01-31 | US_ITS ---
EXAMINATION: US RETROPERITONEAL LIMITED (RENAL ONLY) CLINICAL INFORMATION: UTI, cyst in the left kidney. COMPARISON: Abdominal ultrasound 06/16/2022. TECHNIQUE: Real-time imaging of the kidneys. FINDINGS: RIGHT KIDNEY: 6.7 x 4.3 x 4.2 cm (SAG x AP x TRV). Atrophic with increased cortical echogenicity. Multiple hyperechoic foci could represent nonobstructive calculi and/or vascular calcifications. No hydronephrosis. LEFT KIDNEY: 9 x 5.2 x 5.5 cm (SAG x AP x TRV). Mildly atrophic with increased cortical echogenicity. No renal calculi or hydronephrosis. Simple appearing cyst in the lower pole measuring 0.7 cm. US/US renal BI IMPRESSION: 1. No hydronephrosis. 2. Right greater than left renal atrophy with increased cortical echogenicity suggesting chronic renal disease. 3. Multiple hyperechoic foci in the right kidney could represent nonobstructive calculi and/or vascular calcifications. 4. Simple appearing cyst in the lower left kidney. Electronically signed by: Charley Lewis MD 01/31/2024 06:37 PM EDT
[2024-01-31 10:57] LABS: MANUAL DIFF FLAG NO
[2024-01-31 11:08] LABS: Basophils Absolute Auto 0.1 X10*3/uL (0.0-0.2); Eosinophils Absolute Auto 0.3 X10*3/uL (0.0-0.4); Eosinophils Percent Auto 4.1 % (0-4); Hematocrit 37.8 % (37.0-47.0); Hemoglobin 12.7 g/dl (12.0-16.0); Imm Gran Abs Auto 0.05 X10*3/uL (0.00-0.03); Imm Gran Pct Auto 0.7 % (0.0-0.4); Lymphocytes Absolute Auto 1.6 X10*3/uL (1.2-4.9); Lymphocytes Percent Auto 20.7 % (20-40); Mean Corpuscular HGB Conc 33.6 g/dl (31.0-35.0); Mean Corpuscular Hemoglobin 31.7 pg (27.0-33.0); Mean Corpuscular Volume 94.3 fL (80.0-98.0); Mean Platelet Volume 10.3 fL (9.4-12.3); Monocytes Absolute Auto 0.9 X10*3/uL (0.1-1.2); Neutrophils Absolute Auto 4.7 x10*3/uL (2.0-8.3); Neutrophils Percent Auto 61.5 % (45-73); Platelet Count 242 X10*3/uL (160-400); Red Blood Count 4.01 X10*6/uL (4.20-5.50); Red Cell Distribution Width 14.6 % (11.0-16.0); White Blood Count 7.6 X10*3/uL (4.8-10.8)
[2024-01-31 11:53] LABS: Alanine Aminotransferase 30 U/L (0-31); Albumin Level 4.1 g/dL (3.5-5.0); Alkaline Phosphatase 94 U/L (39-117); Anion Gap 12 (12-20); Aspartate Amino Transferase 22 U/L (5-31); Bilirubin Total 0.7 mg/dL (0.0-1.0); Blood Urea Nitrogen 26 mg/dL (9-16); Carbon Dioxide 29 mmol/L (22-29); Chloride 101 mmol/L (96-108); Estimated Glomerular Filt Rate 38; Glucose Random 265 mg/dL (60-115); Potassium 3.7 mmol/L (3.3-5.1); Sodium 138 mmol/L (135-145); Total Protein 6.9 g/dL (6.5-8.0)
[2024-01-31 11:55] LABS: Appearance Urine Clear; Color Urine Yellow; Glucose Urine UA >=1000 mg/dL (Negative); Leukocyte Esterase Urine Small (1+) (Negative); Nitrite Urine Negative (Negative); PH 5.5 (5.0-9.0); UMIC TRIGGER UACC YES; Urine Blood Negative (Negative); Urine Ketones Negative (Negative); Urine Protein 30 (1+) mg/dL (Neg-Trace)
[2024-01-31 12:02] LABS: Bacteria Urine None Seen (None Seen); Hyaline Casts Urine 0-2 /LPF (0-2); RBC Urine 0-2 /HPF (0-2); UACC Culture Trigger YES; WBC Urine 21-50 /HPF (0-5)
== END 2024-01-31 10:26 | disposition home or self-care (01) ==
LOC: HO.LAB 10:25
PROVIDERS: PCP Internal Medicine; Visit Provider Internal Medicine
DX: N39.0 Urinary tract infection, site not specified (principal); E11.65 Type 2 diabetes mellitus with hyperglycemia; Z79.4 Long term (current) use of insulin; N28.1 Cyst of kidney, acquired
CPT/HCPCS: 36415; 76775; 80053; 81001; 85025; 87086

== ENCOUNTER → 2024-02-04 09:28 | Outpatient (BNVA) | payer MEDICARE, SELFPAY | PROVIDERS: PCP Internal Medicine; Visit Provider Urology | DX: N39.0 Urinary tract infection, site not specified (principal); R31.9 Hematuria, unspecified; N28.1 Cyst of kidney, acquired; N26.1 Atrophy of kidney (terminal) | CPT/HCPCS: 52000; 81003; 99212 ==

== ENCOUNTER 2024-02-07 10:59 | Outpatient (AMB) | payer MEDICARE, SELFPAY ==
--- NOTE | 2024-02-07 11:13 | MHC.PC.OV ---
Vital Signs 02/07/24 11:14 Height 4 ft 11 in Weight 137 lb 2 oz BMI 27.7 BP 132/70 Blood Pressure Location Lt brachial Position Sitting Pulse 84 Pulse Source Pulse Oximeter Pulse Oximetry (%) 94 Oxygen Delivery Method Room Air Intake Visit Reasons: DM Follow Up Intake Note: Patient is here to follow up on DM. Pool Table Operator Required: No Technology Architect: Present Accompanied by: Daughter Allergies codeine Allergy (Intermediate, Verified 02/07/24 11:13) TACHYCARDIA nitrofurantoin [Macrobid] Allergy (Unknown, Verified 02/07/24 11:13) confusion pravastatin Allergy (Unknown, Verified 02/07/24 11:13) Unknown rosuvastatin [Crestor] Allergy (Unknown, Verified 02/07/24 11:13) Unknown Sulfa (Sulfonamide Antibiotics) Allergy (Unknown, Verified 02/07/24 11:13) unknown sulfamethoxazole [From Bactrim] Allergy (Unknown, Verified 02/07/24 11:13) Unknown trimethoprim [From Bactrim] Allergy (Unknown, Verified 02/07/24 11:13) Unknown amlodipine Adverse Reaction (Intermediate, Verified 02/07/24 11:13) leg swelling digoxin Adverse Reaction (Intermediate, Verified 02/07/24 11:13) Confusion Tobacco use date assessed: 02/07/24 Fall risk assessment: No Falls in past year Last assessed Fall Risk: 02/07/24 Dental Screening Dental Screen Date: 06/11/23 HPI DM Follow Up HPI Details 88-year-old overweight female brittle diabetic hypothyroid atrial fibrillation congestive heart failure with preserved ejection fraction coronary artery disease hypertension obstructive sleep apnea cognitive impairment with chronic kidney disease hypercholesterolemia coming in for follow-up. Last seen by the physician administrative personal assistant in 11/27/2023. Recurrent UTIs having encephalopathy and sepsis. Patient did see Urology had cystoscopy done February 03 cystoscopy done. Patient was last seen by Cardiology in December 23 on amiodarone went back to atrial fibrillation given digoxin but had side effects. Placed back on amiodarone. EF last echocardiogram 30% with basal inferior akinesis continuing with beta blockers and diuretics continuing with statins. Continue with anticoagulation with hyperkalemia discontinue spironolactone. [facility] Medical History Urinary tract infection with fever Persistent atrial fibrillation Left thigh pain Abdominal mass, LUQ (left upper quadrant) Iliotibial band syndrome of left side UTI (urinary tract infection) Herpes zoster Orthostatic hypotension Acute hyponatremia Weakness COVID-19 Breast asymmetry Atrial fibrillation with rapid ventricular response Hyperkalemia Essential hypertension Atherosclerotic cardiovascular disease Chronic heart failure with preserved ejection fraction (HFpEF) Iliotibial band syndrome of right side Disc degeneration, lumbar Cognitive dysfunction 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 Atrial fibrillation Osteopenia Hypothyroid Spinal stenosis of lumbar region Degenerative disc disease, lumbar Type 2 diabetes mellitus with hyperglycemia Surgical History History of removal of cyst History of appendectomy History of eye surgery History of cataract surgery History of cholecystectomy History of section History of knee replacement History of hip replacement Family History Father CVD (cardiovascular disease) Mother CVD (cardiovascular disease) Stroke Social History Household Members: None Household Members Other:: son comes 3 days a week, daughter lives 5 minutes away visits frequently Housing: House Do you presently have visiting nurse or 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 Akbar Rocha, Theodora Huddleston, Woo Garcia and colleagues, with an educational cesia from [employer]. Physical exam (Primary Care) Vital Signs: Last Vital Signs Pulse 84 02/07/24 11:14 BP 132/70 02/07/24 11:14 Pulse Ox 94 02/07/24 11:14 Oxygen Delivery Method Room Air 02/07/24 11:14 BMI result Body Mass Index 27.7 Tobacco/Smoking Status: Tobacco use Status Tobacco use date assessed 02/07/24 02/07/24 11:22 Patient Tobacco Use Status Former Tobacco user 02/07/24 11:22 Tobacco use type Cigarette 02/07/24 11:22 e-Cigarette/Vaping Use Former Use 02/07/24 11:22 Thrive Assessment: Date of Thrive Assessment Date Thrive assessed 11/17/23 02/07/24 11:22 Const General: alert; No acute distress HENMT Other: Impacted cerumen bilateral Eyes Conjunctivae: conjunctivae normal Resp Auscultation: clear to auscultation bilaterally Cardio Rate: regular rate Rhythm: regular rhythm GI Inspection: Yes normal to inspection Extrem General: Yes normal to inspection and No edema Office Procedures Cerumen Removal From which ear canal was the cerumen removed: bilateral Removal: otoscope w/curette and cerumen loop/spoon Notes: patient tolerated procedure well, no complications and ear canal clear [id number] Wax Removal by Spoon/Curette Flu Questionnaire Does the patient have a severe egg allergy?: No Does the patient have severe life threatening allergies?: No Does the patient have a fever or illness today?: No Has the patient ever had Guillain-Alpine Syndrome?: No Has the patient ever had any past reaction to a flu shot?: No Results AMB Hemoglobin A1c AMB Hemoglobin A1c 9.4 % Last Edit by DANGELO Pollock on 02/07/24 11:25 Immunizations Fluarix Triv [id number] (PF) 45 mcg (15 mcg x 3)/0.5 mL IM syringe Performing Provider: Monique White MD [facility] Administered by: DANGELO Khan on 02/07/24 11:26 Dose Route Admin Location Dispensed Lot Number Expiration Date NDC Multimedia Services Coordinator 0.5 mL IM Left Deltoid 0.5 mL [id number] 10/06/24 [id number] [facility] Given Date VIS Provided VIS Publication Date 02/07/24 Single Vaccine 20 Eligibility Eligibility Date Funding Source Not [facility] Eligible 02/07/24 Private Results Reviewed Results Reviewed: Laboratory Last Values Hgb A1c (Clinic) 9.4 % (4.0-6.0) H 02/07/24 11:12 Coding Level of Care Code Est Pt Level 4 (86011) Complex EM visit Add On G2211 Diagnoses Recurrent UTI N39.0 Persistent atrial fibrillation I48.19 Hypercholesterolemia E78.00 Chronic kidney disease, stage 3b N18.32 Cognitive impairment R41.89 Essential hypertension I10 Atherosclerotic cardiovascular disease I25.10 Acquired hypothyroidism E03.9 Hypothyroidism type: acquired Type 2 diabetes mellitus with hyperglycemia, with long-term current use of insulin E11.65; Z79.4 Diabetes mellitus mcfp insulin use: with emt intermediate use Chronic combined systolic and diastolic CHF (congestive heart failure) I50.42 Impacted cerumen of both ears H61.23 CPT Codes Office Procedure - CPT: 60801-Hcf Wax Removal by Spoon/Curette ([id number]) Assessment & Plan Assessment & Plan (1) Recurrent UTI: Code(s): N39.0 - Urinary tract infection, site not specified Category: Medical Plan: Patient has a cystoscopy done under urology. (2) Persistent atrial fibrillation: Code(s): I48.19 - Other persistent atrial fibrillation Category: Medical Plan: Patient follows up with Cardiology patient is on amiodarone will continue to monitor for electrolytes and thyroid function. Yearly chest x-ray (3) Hypercholesterolemia: Code(s): E78.00 - Pure hypercholesterolemia, unspecified Category: Medical Plan: Avoid fried foods, chicken skin, eggs, butter margarine, pastries and meat. Be it pork or beef they have a lot of cholesterol LDL goal of less than 70 and triglyceride of less than 150 on simvastatin 10 mg at bedtime (4) Chronic kidney disease, stage 3b: Code(s): N18.32 - Chronic kidney disease, stage 3b Category: Medical Plan: Keep well hydrated avoid NSAIDs (5) Cognitive impairment: Code(s): R41.89 - Other symptoms and signs involving cognitive functions and awareness Category: Medical Plan: Supportive treatment (6) Essential hypertension: Code(s): I10 - Essential (primary) hypertension Category: Medical Plan: Continue with blood pressure medication. Decrease salt intake and exercise on metoprolol 25 mg at bedtime and 100 mg in the morning. (7) Atherosclerotic cardiovascular disease: Code(s): I25.10 - Atherosclerotic heart disease of [place] coronary artery without angina pectoris Category: Medical Plan: Control the cholesterol, weight, blood pressure, diabetes on anticoagulation (8) Hypothyroid: Code(s): E03.9 - Hypothyroidism, unspecified Category: Medical Qualifiers: Hypothyroidism type: acquired Qualified Code(s): E03.9 - Hypothyroidism, unspecified Plan: Continue with thyroid medication (9) Type 2 diabetes mellitus with hyperglycemia: Comment: With retinopathy Code(s): E11.65 - Type 2 diabetes mellitus with hyperglycemia Category: Medical Qualifiers: Diabetes mellitus emt intermediate insulin use: with emt intermediate use Qualified Code(s): E11.65 - Type 2 diabetes mellitus with hyperglycemia; Z79.4 - oil heaterman (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 Patient is a known brittle diabetic continuing with present medication and continue to monitor. (10) Chronic combined systolic and diastolic CHF (congestive heart failure): Code(s): I50.42 - Chronic combined systolic (congestive) and diastolic (congestive) heart failure Category: Medical Plan: Weigh daily continue with furosemide, beta live (11) Impacted cerumen of both ears: Code(s): H61.23 - Impacted cerumen, bilateral Category: Medical Plan: scoop no irrigation TM intact Orders: Orders AMB Hemoglobin A1c Today E11.65 - Type 2 diabetes mellitus with hyperglycemia, N18.32 - Chronic kidney disease, stage 3b, Z79.4 - senior care (current) use of insulin Influenza [id number] Immunization Today Z23 - Encounter for immunization Free T4 (Free Thyroxine) Today I25.10 - Atherosclerotic heart disease of [place] coronary artery without angina pectoris Vitamin B12 and Folate Today I25.10 - Atherosclerotic heart disease of [place] coronary artery without angina pectoris Vitamin D 25-OH Total Today I25.10 - Atherosclerotic heart disease of [place] coronary artery without angina pectoris Magnesium Today I25.10 - Atherosclerotic heart disease of [place] coronary artery without angina pectoris Hemoglobin A1c Today I25.10 - Atherosclerotic heart disease of [place] coronary artery without angina pectoris Complete Blood Count Auto Diff Today I25.10 - Atherosclerotic heart disease of [place] coronary artery without angina pectoris Comprehensive Met. Panel Today I25.10 - Atherosclerotic heart disease of [place] coronary artery without angina pectoris MIA Reflex Titer and Pattern Today I25.10 - Atherosclerotic heart disease of [place] coronary artery without angina pectoris, R79.89 - Other specified abnormal findings of blood chemistry Thyroid Stimulating Hormone Today I25.10 - Atherosclerotic heart disease of [place] coronary artery without angina pectoris
[2024-02-07 11:14] VITALS: BP 132/70; PULSE 84; O2SAT 94; BMI 27.7
== END 2024-02-07 11:54 | disposition home or self-care (01) ==
LOC: HO.HMCH 11:00
PROVIDERS: PCP Internal Medicine; Visit Provider Internal Medicine
DX: I12.9 Hypertensive chronic kidney disease with stage 1 through stage 4 chronic kidney disease, or unspecified chronic kidney disease (principal); I48.19 Other persistent atrial fibrillation; N18.32 Chronic kidney disease, stage 3b; E11.65 Type 2 diabetes mellitus with hyperglycemia; I50.42 Chronic combined systolic (congestive) and diastolic (congestive) heart failure; Z79.4 Long term (current) use of insulin; H61.23 Impacted cerumen, bilateral; N39.0 Urinary tract infection, site not specified; E78.00 Pure hypercholesterolemia, unspecified; R41.89 Other symptoms and signs involving cognitive functions and awareness; I25.10 Atherosclerotic heart disease of native coronary artery without angina pectoris; E03.9 Hypothyroidism, unspecified

== ENCOUNTER → 2024-02-07 10:59 | Outpatient (BNVA) | payer MEDICARE, SELFPAY | PROVIDERS: PCP Internal Medicine; Visit Provider Internal Medicine | DX: Z23 Encounter for immunization (principal); H61.23 Impacted cerumen, bilateral; N39.0 Urinary tract infection, site not specified; E78.00 Pure hypercholesterolemia, unspecified; I48.19 Other persistent atrial fibrillation; I13.0 Hypertensive heart and chronic kidney disease with heart failure and stage 1 through stage 4 chronic kidney disease, or unspecified chronic kidney disease; E11.22 Type 2 diabetes mellitus with diabetic chronic kidney disease; N18.32 Chronic kidney disease, stage 3b; I50.42 Chronic combined systolic (congestive) and diastolic (congestive) heart failure; R41.89 Other symptoms and signs involving cognitive functions and awareness; I25.10 Atherosclerotic heart disease of native coronary artery without angina pectoris; E03.9 Hypothyroidism, unspecified; E11.65 Type 2 diabetes mellitus with hyperglycemia; Z79.4 Long term (current) use of insulin | CPT/HCPCS: 69210; 83036; 90471; 90656; 99212 ==

== ENCOUNTER 2024-03-26 11:40 | Outpatient (REF) | payer MEDICARE, SELFPAY ==
[2024-03-26 12:27] LABS: Appearance Urine Clear; Color Urine Yellow; Glucose Urine UA Negative (Negative); Leukocyte Esterase Urine Negative (Negative); Nitrite Urine Negative (Negative); Urine Blood Negative (Negative); Urine Ketones Negative (Negative); Urine Protein Trace mg/dL (Neg-Trace)
== END 2024-03-26 11:41 | disposition home or self-care (01) ==
LOC: HO.LAB 11:40
PROVIDERS: PCP Internal Medicine; Visit Provider Internal Medicine
DX: R30.0 Dysuria (principal); N39.0 Urinary tract infection, site not specified
CPT/HCPCS: 81003

== ENCOUNTER 2024-04-19 16:33 | Inpatient (IN) | payer MEDICARE, SELFPAY ==
--- NOTE | ~2024-04-19 | XR_ITS ---
CLINICAL HISTORY: fall Chest Radiograph Comparison: 11/16/23 Findings: Cardiomegaly. Normal mediastinal contours. No pneumothorax. Linear opacity in the left lower lung zone is unchanged and likely scarring. No pleural effusion. Normal upper abdomen. No acute fracture. Impression: No acute findings. This document has been electronically signed by: Padma Ruiz MD on 04/19/2024 18:22:20
--- NOTE | ~2024-04-19 | XR_ITS ---
CLINICAL HISTORY: fall, pain Radiographs of the pelvis and right hip, 3 views Comparison: 12/08/2019 Findings: There is a fracture of the right proximal femur involving the greater and lesser trochanters and intertrochanteric crest. There is decrease of the femoral neck/shaft angle, measuring 100 degrees. No dislocation. [id number] degenerative change in the pelvis. Moderate to severe lower lumbar degenerative change. Intact visualized left total hip arthroplasty. Bone mineralization is decreased. Vascular calcifications. Soft tissue swelling. Impression: Acute fracture of the right proximal femur. This document has been electronically signed by: Padma Ruiz MD on 04/19/2024 18:30:08
--- NOTE | ~2024-04-19 | FL_ITS ---
CLINICAL HISTORY: im nail Intraoperative images of right hip Comparison: CR - XR HIP RT MIN 2V W/WO PEL - 04/19/24 17:54 EST Findings: Intraoperative fluoroscopic images were submitted of ORIF of the fracture of the right proximal femur with an intramedullary karen and screw. The hardware is intact. There is anatomic alignment. Impression: Status post ORIF of the right proximal femur. Intact hardware with anatomic alignment. This document has been electronically signed by: Padma Ruiz MD on 04/20/2024 18:01:47
[2024-04-19 16:44] VITALS: BP 189/96; PULSE 82; RESP 18; TEMP 36.9; O2SAT 96
[2024-04-19 16:51] VITALS: BP 199/91; PULSE 86; RESP 20; O2SAT 95
[2024-04-19 16:58] VITALS: BP 164/98; BP 165/51; PULSE 78; PULSE 84; RESP 18; TEMP 36.9; O2SAT 97; O2SAT 98; BMI 28.6
--- NOTE | 2024-04-19 17:26 | ED.GENADULT ---
HPI - General Adult General Chief complaint: Fall Stated complaint: Mechanical fall, R leg rotation, +thinners Time Seen by Provider: 04/19/24 17:25 History of Present Illness ED Provider: Roosevelt GOMEZ narrative: The patient is an 88-year-old woman with a history of atrial fibrillation. She is on rivaroxaban. She was visiting at her daughter's house. She taken her shoes off to lie down for awhile. She had socks on. A one point she had to get up to go to the bathroom. When she stood up from the bed she lost her balance and fell and injured her right hip. She did not hit her head. She had pain in the region of her right hip. Her family could not get her up. They called 911 and she was brought to the hospital. At the moment she has pain in the region of the right hip but no other sense of injury or pain. Related Data Home Medications ?Medication ?Instructions ?Recorded ?Confirmed travoprost 0.004 % eye drops 1 drp ophthalmic (eye) BEDTIME 06/01/20 04/19/24 acetaminophen 500 mg tablet 1,000 mg PO TID PRN Pain 08/17/21 04/19/24 glycerin (adult) 1 supp [place] DAILY PRN Constipation 08/17/21 04/19/24 cholecalciferol (vitamin D3) 25 25 mcg PO DAILY 01/01/23 04/19/24 mcg (1,000 unit) capsule furosemide 40 mg tablet 40 mg PO DAILY 11/17/23 04/19/24 insulin glargine U-300 conc 300 11 unit subcut DAILY 11/17/23 04/19/24 unit/mL (1.5 mL) subcutaneous pen (Toujeo SoloStar U-300 Insulin) insulin lispro 100 unit/mL 1 sliding scale dose subcut TIDAC 11/17/23 04/19/24 subcutaneous pen (Humalog KwikPen (U-100) Insulin) liothyronine 5 mcg tablet (Cytomel) 5 mcg PO DAILY 12/24/23 04/19/24 Previous Rx's ?Medication ?Instructions ?Recorded albuterol sulfate 90 mcg/actuation 2 puff inhalation Q6H PRN 09/14/22 aerosol inhaler (Ventolin HFA) shortness of breath or wheezing #8.5 grams flash glucose sensor (FreeStyle #1 ea 02/14/24 Madeline 14 Day Sensor kit) flash glucose sensor (FreeStyle #6 ea 05/23/23 Madeline 14 Day Sensor kit) simvastatin 10 mg tablet 10 mg PO BEDTIME #90 tabs 08/24/23 metoprolol succinate 100 mg 100 mg PO DAILY 90 days #90 tabs 08/30/23 tablet,extended release 24 hr pen needle, diabetic 32 gauge x #400 ea 09/17/23 (BD Eveline 2nd Gen Pen Needle) amiodarone 200 mg tablet 200 mg PO DAILY 90 days #90 tabs 10/29/23 levothyroxine 125 mcg tablet 125 mcg PO DAILY@0600 #90 tabs 12/17/23 metoprolol succinate 25 mg 25 mg PO BEDTIME high BP #90 tabs 01/04/24 tablet,extended release 24 hr lactulose 10 gram/15 mL oral 30 ml PO DAILY PRN for 02/01/24 solution constipation #946 mL rivaroxaban 15 mg tablet (Xarelto) 15 mg PO QPM #90 tabs 03/17/24 Allergies Allergy/AdvReac Type Severity Reaction Status Date / Time codeine Allergy Intermediate TACHYCARDIA Verified 04/19/24 17:04 nitrofurantoin [Macrobid] Allergy Unknown confusion Verified 04/19/24 17:04 pravastatin Allergy Unknown Unknown Verified 04/19/24 17:04 rosuvastatin [Crestor] Allergy Unknown Unknown Verified 04/19/24 17:04 Sulfa (Sulfonamide Allergy Unknown unknown Verified 04/19/24 17:04 Antibiotics) sulfamethoxazole Allergy Unknown Unknown Verified 04/19/24 17:04 [From Bactrim] trimethoprim [From Bactrim] Allergy Unknown Unknown Verified 04/19/24 17:04 amlodipine AdvReac Intermediate leg Verified 04/19/24 17:04 swelling digoxin AdvReac Intermediate Confusion Verified 04/19/24 17:04 Review of Systems Review of Systems: Yes all other systems are reviewed and are negative [facility] Past Medical History Medical History Urinary tract infection with fever Persistent atrial fibrillation Left thigh pain Abdominal mass, LUQ (left upper quadrant) Iliotibial band syndrome of left side UTI (urinary tract infection) Herpes zoster Orthostatic hypotension Acute hyponatremia Weakness COVID-19 Breast asymmetry Atrial fibrillation with rapid ventricular response Hyperkalemia Essential hypertension Atherosclerotic cardiovascular disease Chronic heart failure with preserved ejection fraction (HFpEF) Iliotibial band syndrome of right side Disc degeneration, lumbar Cognitive dysfunction 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 Atrial fibrillation Osteopenia Hypothyroid Spinal stenosis of lumbar region Degenerative disc disease, lumbar Type 2 diabetes mellitus with hyperglycemia Surgical History History of removal of cyst History of appendectomy History of eye surgery History of cataract surgery History of cholecystectomy History of section History of knee replacement History of hip replacement Family History Family History Father CVD (cardiovascular disease) Mother CVD (cardiovascular disease) Stroke Social History Social History Household Members: None Household Members Other:: son comes 3 days a week, daughter lives 5 minutes away visits frequently Housing: House Do you presently have visiting nurse or other home services: No Alcohol intake: never Comment: post cardioversion Patient Tobacco Use Status: Former Tobacco user Tobacco use type: Cigarette Years Smoked: <1 Smoked in Last 30 Days: No e-Cigarette/Vaping Use: Former Use Second Hand Smoke Exposure: No Use of substances other than those prescribed or required for medical reasons: No Have you been hit, kicked, punched, or otherwise hurt by someone within the past year? If so, by whom?: No Do you feel safe in your current relationship?: No Current Relationship Is there a partner from a previous relationship who is making you feel unsafe now?: No Are you made to feel afraid or neglected: No Advance Directives: Yes Advance Directives on File: Yes Advance Directives Date on File: 08/29/21 Do you have a plan to hurt others: No Plan Recently lost weight without trying: No Eating poorly because of decreased appetite: No Nutrition Risks: No Nutritional Risk Patient : No : No Poor oral hygiene: No service: No Current occupational status: retired Cognitive needs: Yes (Walker) Hearing needs: No Vision needs: Yes Physical Exam ED Vital Signs: Vital Signs - 24 hr 04/19/24 16:44 04/19/24 16:51 04/19/24 16:58 Temperature 98.4 F 98.4 F Pulse Rate 82 86 78 Respiratory Rate 18 20 18 Blood Pressure 189/96 H 199/91 H 165/51 H Pulse Oximetry 96 95 97 Oxygen Delivery Method Room Air Room Air Room Air BMI result Body Mass Index 28.6 Const Other: The patient has the appearance of a frail 88-year-old. She is awake and alert. She does not appear in acute distress. HENMT Other: No signs of trauma to the head or the face. Eyes Other: Pupils are round equal, conjunctivae clear Neck Other: No C-spine tenderness. Moving her neck easily. No JVD. Resp Effort & Inspection: normal respiratory effort Auscultation: clear to auscultation bilaterally Cardio Other: The patient has a normal rate. She has a irregular rate and rhythm. GI Other: Abdomen is soft and nontender. Skin Other: Skin is intact. Skin is pale and dry. Neuro Other: The patient is awake and alert. She has a vague demeanor consistent with some degree of cognitive impairment or mild dementia. Cranial nerves are intact. She moves her arms normally. She moves her left leg normally. Pain limits movement of the right leg. Extrem Other: The right leg seems externally rotated. It is not significantly shortened. She can not move the right hip. Medications Administered Generic Name Dose Route Start Last Admin Trade Name Freq PRN Reason Stop Dose Admin Insulin Human Lispro 0 unit 04/19/24 21:00 04/19/24 21:34 Insulin Lispro 100 Unit/Ml 3 Ml Vial SUBCUT Not Given [facility] Protocol Morphine Sulfate 2 mg 04/19/24 19:31 04/20/24 01:08 Morphine Sulfate 2 Mg/Ml Cartridge IVPUSH 2 mg Q4H PRN Administration Pain, Severe (Pain Scale 7-10) Protocol Sodium Chloride 3 ml 04/20/24 00:00 04/19/24 22:04 0.9 % Sodium Chloride Flush 3 Ml Syringe IVFLUSH 3 ml [facility] Administration Discontinued Medications Generic Name Dose Route Start Last Admin Trade Name Freq PRN Reason Stop Dose Admin Acetaminophen 1,000 mg in 100 mls @ 400 mls/hr 04/19/24 19:23 04/19/24 21:34 Ofirmev IV 04/19/24 19:37 Infused ONCE ONE Infusion Medical Decision Making Medical Decision Making [facility] Narrative: The patient is an 88-year-old woman who fell and injured her right hip. She did not hit her head. She had an externally rotated right leg. She has a right hip x-ray that shows an obvious intertrochanteric fracture. She does not seem to have any other injuries. She is on rivaroxaban for atrial fibrillation. Orthopedics was consulted. Apparently surgery asked to wait until 72 hours from the last dose of rivaroxaban which was last night. The patient will be admitted to the hospitalist service. Lab Data 04/19/24 18:43 04/19/24 18:43 Labs: Lab Results 04/19/24 04/19/24 Range/Units 18:43 19:28 WBC 13.4 H (4.8-10.8) X10*3/uL RBC 3.96 L (4.20-5.50) X10*6/uL Hgb 12.6 (12.0-16.0) g/dl Hct 36.8 L (37.0-47.0) % MCV 92.9 (80.0-98.0) fL MCH 31.8 (27.0-33.0) pg MCHC 34.2 (31.0-35.0) g/dl RDW 14.6 (11.0-16.0) % Plt Count 246 (160-400) X10*3/uL MPV 9.6 (9.4-12.3) fL Immature Gran % (Auto) 0.7 H (0.0-0.4) % Neut % (Auto) 80.3 H (45-73) % Lymph % (Auto) 7.6 L (20-40) % [place] % (Auto) 9.9 (2-11) % Eos % (Auto) 1.0 (0-4) % Baso % (Auto) 0.5 (0-2) % Lymph # (Auto) 1.0 L (1.2-4.9) X10*3/uL [place] # (Auto) 1.3 H (0.1-1.2) X10*3/uL Eos # (Auto) 0.1 (0.0-0.4) X10*3/uL Baso # (Auto) 0.1 (0.0-0.2) X10*3/uL Abs Immat Gran (auto) 0.09 H (0.00-0.03) X10*3/uL Absolute Neuts (auto) 10.7 H (2.0-8.3) x10*3/uL Absolute Nucleated RBC 0.000 (0.0-0.012) X10*3/uL Nucleated RBC % (auto) 0.0 (0.0-0.2) /100WBC Sodium 140 (135-145) mmol/L Potassium 4.0 (3.3-5.1) mmol/L Chloride 103 (96-108) mmol/L Carbon Dioxide 30 H (22-29) mmol/L Anion Gap 11 L (12-20) BUN 23 H (9-16) mg/dL Creatinine 1.20 (0.5-1.4) mg/dL Estim Creat Clear Calc 26.9 Estimated GFR 42 Random Glucose 268 H (60-115) mg/dL Calcium 8.8 D (8.4-10.2) mg/dL Magnesium 2.4 (1.6-2.6) mg/dL Total Bilirubin 0.6 (0.0-1.0) mg/dL Direct Bilirubin 0.2 (0.0-0.5) mg/dL AST 26 (5-31) U/L ALT 27 (0-31) U/L Alkaline Phosphatase 84 (39-117) U/L Total Protein 6.7 (6.5-8.0) g/dL Albumin 3.9 (3.5-5.0) g/dL Influenza Type A (PCR) NEGATIVE (Negative) Influenza Type B (PCR) NEGATIVE (Negative) RSV RNA Qual (PCR) NEGATIVE (Negative) SARS-CoV-2 RNA (RT-PCR) NEGATIVE (Negative) Blood Type O Positive Antibody Screen NEGATIVE Discharge Plan Discharge Clinical Impression: Closed right hip fracture Patient Disposition: Admitted As Inpatient Interventions: Admission Worksheet (ED) Last Done: 04/19/24 20:30 Discharge Date/Time: 04/19/24 21:17
--- NOTE | 2024-04-19 17:32 | ECG_ITS ---
Test Reason : FALL Blood Pressure : */* mmHG Vent. Rate : 77 BPM Atrial Rate : * BPM P-R Int : * ms QRS Dur : 104 ms QT Int : 430 ms P-R-T Axes : * -57 59 degrees QTcB Int : 486 ms Atrial fibrillation Left axis deviation Moderate voltage criteria for LVH, may be normal variant ( R in aVL , Riley product ) Nonspecific ST and T wave abnormality Abnormal ECG When compared with ECG of 16-Nov-2023 20:55, No significant change was found Referred By: Jai Albert Electronically Signed By: MAGI HIGHTOWER
[2024-04-19 18:49] LABS: MANUAL DIFF FLAG NO
[2024-04-19 18:51] LABS: Basophils Absolute Auto 0.1 X10*3/uL (0.0-0.2); Basophils Percent Auto 0.5 % (0-2); Eosinophils Absolute Auto 0.1 X10*3/uL (0.0-0.4); Hematocrit 36.8 % (37.0-47.0); Hemoglobin 12.6 g/dl (12.0-16.0); Imm Gran Abs Auto 0.09 X10*3/uL (0.00-0.03); Imm Gran Pct Auto 0.7 % (0.0-0.4); Lymphocytes Percent Auto 7.6 % (20-40); Mean Corpuscular HGB Conc 34.2 g/dl (31.0-35.0); Mean Corpuscular Hemoglobin 31.8 pg (27.0-33.0); Mean Corpuscular Volume 92.9 fL (80.0-98.0); Mean Platelet Volume 9.6 fL (9.4-12.3); Monocytes Absolute Auto 1.3 X10*3/uL (0.1-1.2); Monocytes Percent Auto 9.9 % (2-11); Neutrophils Absolute Auto 10.7 x10*3/uL (2.0-8.3); Neutrophils Percent Auto 80.3 % (45-73); Platelet Count 246 X10*3/uL (160-400); Red Blood Count 3.96 X10*6/uL (4.20-5.50); Red Cell Distribution Width 14.6 % (11.0-16.0); White Blood Count 13.4 X10*3/uL (4.8-10.8)
[2024-04-19 19:05] LABS: Alanine Aminotransferase 27 U/L (0-31); Albumin Level 3.9 g/dL (3.5-5.0); Alkaline Phosphatase 84 U/L (39-117); Anion Gap 11 (12-20); Aspartate Amino Transferase 26 U/L (5-31); Bilirubin Direct 0.2 mg/dL (0.0-0.5); Bilirubin Total 0.6 mg/dL (0.0-1.0); Blood Urea Nitrogen 23 mg/dL (9-16); Calcium 8.8 mg/dL (8.4-10.2); Carbon Dioxide 30 mmol/L (22-29); Chloride 103 mmol/L (96-108); Creatinine Clr Calc Pharmacy 26.9; Estimated Glomerular Filt Rate 42; Glucose Random 268 mg/dL (60-115); Magnesium 2.4 mg/dL (1.6-2.6); Sodium 140 mmol/L (135-145); Total Protein 6.7 g/dL (6.5-8.0)
[2024-04-19 19:32] LABS: Influenza A PCR NEGATIVE (Negative); Influenza B PCR NEGATIVE (Negative); Resp Syncy Virus RNA Qual PCR NEGATIVE (Negative); SARS COV2 PCR INHOUSE NEGATIVE (Negative)
--- NOTE | 2024-04-19 19:49 | P.HPHOSP_ITS ---
History of Present Illness Date of Service: 04/19/24 Attending physician on admission: Jazmine Caputo Chief Complaint: Fall at home Pt is an 88-year-old female with a PMH significant for?unspecified dementia, persistent AFib on Xarelto, insulin-dependent type 2 diabetes, HLD, CKD 3, HFpEF, hypothyroidism, and GERD who presents to the ED for evaluation of right hip and leg pain after fall at home. Pt is alert and oriented to self only and HPI supplemented by family who was at bedside. Pt lives by herself, though has family regularly checking in on her each day and either stays with her daughter or has family stay with her each night. This afternoon pt was using the bathroom when she slipped and fell on her right side. Pt was then unable to stand her right leg. Denies lightheadedness or dizziness. No loss of consciousness. No head strike. Denies numbness or tingling in lower extremities. Pt denies any other acute medical complaints. No chest pain/pressure, palpitations. Denies shortness or breath or difficulty breathing. No fever, chills, nausea, vomiting, abdominal pain. In the ED pt was hypertensive up to 189/96 vitals otherwise stable. Labs were significant for leukocytosis of 13.4 otherwise grossly unremarkable and around baseline for pt. Stable H&H. No significant electrolyte abnormalities. Renal function baseline. Hepatic function WNL. Tested negative for flu, RSV, COVID. CXR showed no acute findings. X-ray right hip showed acute fracture of proximal femur. EKG demonstrated atrial fibrillation with QTc of 486, similar to previous. Pt was treated with IV Tylenol. Pt will be admitted to the hospital for treatment and further evaluation of right hip fracture secondary to mechanical fall at home. Review of Systems 2 Review of Systems: Negative except for that which is stated in the HPI [facility] Medical History Urinary tract infection with fever Persistent atrial fibrillation Left thigh pain Abdominal mass, LUQ (left upper quadrant) Iliotibial band syndrome of left side UTI (urinary tract infection) Herpes zoster Orthostatic hypotension Acute hyponatremia Weakness COVID-19 Breast asymmetry Atrial fibrillation with rapid ventricular response Hyperkalemia Essential hypertension Atherosclerotic cardiovascular disease Chronic heart failure with preserved ejection fraction (HFpEF) Iliotibial band syndrome of right side Disc degeneration, lumbar Cognitive dysfunction 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 Atrial fibrillation Osteopenia Hypothyroid Spinal stenosis of lumbar region Degenerative disc disease, lumbar Type 2 diabetes mellitus with hyperglycemia Family History Father CVD (cardiovascular disease) Mother CVD (cardiovascular disease) Stroke Surgical History History of removal of cyst History of appendectomy History of eye surgery History of cataract surgery History of cholecystectomy History of section History of knee replacement History of hip replacement Social History Household Members: None Household Members Other:: son comes 3 days a week, daughter lives 5 minutes away visits frequently Housing: House Do you presently have visiting nurse or other home services: 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) Alcohol intake: never Comment: post cardioversion Patient Tobacco Use Status: Former Tobacco user Tobacco use type: Cigarette Years Smoked: <1 Smoked in Last 30 Days: No e-Cigarette/Vaping Use: Former Use Second Hand Smoke Exposure: No Use of substances other than those prescribed or required for medical reasons: No Advance Directives: Yes Advance Directives on File: Yes Advance Directives Date on File: 08/29/21 Do you have a plan to hurt others: No Plan service: No Current occupational status: retired Cognitive needs: Yes (Walker) Hearing needs: No Vision needs: Yes Meds Allergies Allergy/AdvReac Type Severity Reaction Status Date / Time codeine Allergy Intermediate TACHYCARDIA Verified 04/19/24 17:04 nitrofurantoin [Macrobid] Allergy Unknown confusion Verified 04/19/24 17:04 pravastatin Allergy Unknown Unknown Verified 04/19/24 17:04 rosuvastatin [Crestor] Allergy Unknown Unknown Verified 04/19/24 17:04 Sulfa (Sulfonamide Allergy Unknown unknown Verified 04/19/24 17:04 Antibiotics) sulfamethoxazole Allergy Unknown Unknown Verified 04/19/24 17:04 [From Bactrim] trimethoprim [From Bactrim] Allergy Unknown Unknown Verified 04/19/24 17:04 amlodipine AdvReac Intermediate leg Verified 04/19/24 17:04 swelling digoxin AdvReac Intermediate Confusion Verified 04/19/24 17:04 Active Medications: Current Medications Acetaminophen (Acetaminophen 325 Mg Tablet) 975 mg PO TID ENA Calcium Carbonate (Calcium Carbonate 750 Mg Tab.Chew) 750 mg PO Q4H PRN PRN Reason: Heartburn Magnesium Hydroxide (Milk Of Magnesia 30 Ml Oral.Susp) 30 ml PO DAILY PRN PRN Reason: Constipation Melatonin (Melatonin 3 Mg Tablet) 6 mg PO BEDTIME PRN PRN Reason: Insomnia Morphine Sulfate (Morphine Sulfate 2 Mg/Ml Cartridge) 2 mg IVPUSH Q4H PRN; Protocol PRN Reason: Pain, Severe (Pain Scale 7-10) Sodium Chloride (0.9 % Sodium Chloride Flush 3 Ml Syringe) [facility] Home Medications ?Medication ?Instructions ?Recorded ?Confirmed ?Last Taken ?Type travoprost 0.004 % eye drops 1 drp ophthalmic (eye) BEDTIME 06/01/20 12/24/23 11/16/23 History acetaminophen 500 mg tablet 1,000 mg PO TID PRN Pain 08/17/21 12/24/23 08/16/21 History glycerin (adult) 1 supp [place] DAILY PRN Constipation 08/17/21 12/24/23 Unknown History cholecalciferol (vitamin D3) 25 25 mcg PO DAILY 01/01/23 12/24/23 11/16/23 History mcg (1,000 unit) capsule furosemide 40 mg tablet 40 mg PO DAILY 11/17/23 12/24/23 11/16/23 History insulin glargine U-300 conc 300 11 unit subcut DAILY 11/17/23 12/24/23 11/16/23 History unit/mL (1.5 mL) subcutaneous pen (Toujeo SoloStar U-300 Insulin) insulin lispro 100 unit/mL 1 sliding scale dose subcut TIDAC 11/17/23 12/24/23 11/16/23 History subcutaneous pen (Humalog KwikPen (U-100) Insulin) liothyronine 5 mcg tablet (Cytomel) 5 mcg PO DAILY 12/24/23 12/24/23 Unknown History Physical Exam 2 Vital Signs and Narrative: Vital Signs: Last Vital Signs Temp 98.4 F 04/19/24 16:58 Pulse 78 04/19/24 16:58 Resp 18 04/19/24 16:58 BP 165/51 H 04/19/24 16:58 Pulse Ox 97 04/19/24 16:58 O2 Del Method Room Air 04/19/24 16:58 BMI result Body Mass Index 28.6 General: Alert and oriented to self only, not to place, time, or situation. In no acute distress Resp: CTA bilaterally CVS: Irregularly irregular rhythm GI: +BS, NT, no distention Skin: Warm, dry Neuro: Cranial nerves II-XII grossly intact bilaterally. Motor grossly intact bilaterally. Sensation to light touch intact of lower extremities Extremities: Right leg shortened and externally rotated. Unable to move right lower extremity secondary to pain. Able to wiggle toes bilaterally Psych: Pleasantly confused Results Labs 04/19/24 18:43 04/19/24 18:43 Labs: Laboratory Results - last 24 hr 04/19/24 18:43 MCV 92.9 MCH 31.8 MCHC 34.2 RDW 14.6 Plt Count 246 MPV 9.6 Immature Gran % (Auto) 0.7 H Neut % (Auto) 80.3 H Lymph % (Auto) 7.6 L [place] % (Auto) 9.9 Eos % (Auto) 1.0 Baso % (Auto) 0.5 Lymph # (Auto) 1.0 L [place] # (Auto) 1.3 H Eos # (Auto) 0.1 Baso # (Auto) 0.1 Abs Immat Gran (auto) 0.09 H Absolute Neuts (auto) 10.7 H Absolute Nucleated RBC 0.000 Nucleated RBC % (auto) 0.0 Anion Gap 11 L Estim Creat Clear Calc 26.9 Estimated GFR 42 Random Glucose 268 H Calcium 8.8 D Magnesium 2.4 Total Bilirubin 0.6 Direct Bilirubin 0.2 AST 26 ALT 27 Alkaline Phosphatase 84 Total Protein 6.7 Albumin 3.9 Influenza Type A (PCR) NEGATIVE Influenza Type B (PCR) NEGATIVE RSV RNA Qual (PCR) NEGATIVE SARS-CoV-2 RNA (RT-PCR) NEGATIVE Assessment and Plan (1) Closed right hip fracture: Status: Acute Plan Pt is an 88-year-old female with a PMH significant for?unspecified dementia, persistent AFib on Xarelto, insulin-dependent type 2 diabetes, HLD, CKD 3, HFpEF, hypothyroidism, and GERD who presents to the ED for evaluation of right hip and leg pain after fall at home. Pt will be admitted to the hospital for treatment and further evaluation of right hip fracture secondary to mechanical fall at home. Closed right hip fracture Right hip x-ray found acute fracture of right proximal femur Secondary to mechanical fall at home Lyons catheter Analgesics on scale for pain management Orthopedic consult RCRI score 2, pt is moderate to high surgical risk given age and comorbidities Pt on Xarelto, will have to home for 72 hours prior to surgery; last dose on 04/18/2024 No further workup or treatment indicated at this time Persistent AFib Continue amiodarone and metoprolol Hold Xarelto due to impending surgery HLD Continue statin HFpEF Continue metoprolol, Lasix Insulin-dependent type 2 diabetes Sliding-scale insulin, Lantus Diabetic diet Hypothyroidism Continue levothyroxine Full Code Attending:?Dr. Ackerman DVT Prophylaxis: Pneumatic compression due to impending surgical procedure Pt will require a hospitalization of at least two nights for treatment of?right hip fracture secondary to mechanical fall at home. Given that pt is immobile and will require holding Xarelto 72 hours prior to surgery, she will require hospital level care for pain management as well as ADLs while awaiting surgical repair. Quality Stroke Does the patient have a stroke diagnosis?: No VTE Prior VTE?: No VTE Risk Level:: Medical - moderate - high VTE Device Contraindication: N/A - Device Ordered VTE Drug Contraindication: Treatment Not Indicated
[2024-04-19 20:19] VITALS: BP 171/69; PULSE 78; RESP 16; TEMP 36.6; O2SAT 96
[2024-04-19] MEDS: Acetaminophen 1,000 MG/100 ML PIGGYBACK 400 MG IV (20:24)
[2024-04-19 21:30] LABS: Glucose, Whole Blood 303 mg/dL (60-115)
[2024-04-19] MEDS: Morphine Sulfate 2 MG/ML CARTRIDGE IVPUSH (21:31)
[2024-04-19 21:36] VITALS: BP 150/63; PULSE 83; RESP 16; TEMP 36.2; O2SAT 96
--- NOTE | 2024-04-19 21:55 | MHC.PIE ---
p; poc on arrival 303. pt family in room refusing insulin - pt family reports pt given long acting insulin at home and don't take insulin at night. pt and family educated on need for insulin but pt family cont to refuse reporting pt can take insulin in the morning after the long acting insulin wears out. i; dr islas notified. e; will cont to [facility]
[2024-04-19] MEDS: 0.9 % Sodium Chloride Flush 3 ML SYRINGE IVFLUSH (22:04)
[2024-04-19 22:57] VITALS: BP 156/72; PULSE 80; RESP 18; TEMP 37.1; O2SAT 96
[2024-04-20] VITALS (11 sets, daily range): BP systolic 97–170; BP diastolic 52–87; PULSE 72–87; RESP 16–18; TEMP 36.2–37.2; O2SAT 93–100
[2024-04-20] MEDS: Morphine Sulfate 2 MG/ML CARTRIDGE IVPUSH ×4 (01:08→18:40)
[2024-04-20 06:07] LABS: Hematocrit 34.4 % (37.0-47.0); Hemoglobin 11.5 g/dl (12.0-16.0); Mean Corpuscular HGB Conc 33.4 g/dl (31.0-35.0); Mean Corpuscular Hemoglobin 31.4 pg (27.0-33.0); Mean Platelet Volume 9.8 fL (9.4-12.3); Platelet Count 207 X10*3/uL (160-400); Red Blood Count 3.66 X10*6/uL (4.20-5.50); Red Cell Distribution Width 14.7 % (11.0-16.0); White Blood Count 8.5 X10*3/uL (4.8-10.8)
[2024-04-20 06:26] LABS: Anion Gap 11 (12-20); Blood Urea Nitrogen 23 mg/dL (9-16); Calcium 8.6 mg/dL (8.4-10.2); Carbon Dioxide 30 mmol/L (22-29); Chloride 103 mmol/L (96-108); Creatinine Clr Calc Pharmacy 28.3; Estimated Glomerular Filt Rate 45; Glucose Random 275 mg/dL (60-115); Potassium 4.2 mmol/L (3.3-5.1); Sodium 140 mmol/L (135-145)
[2024-04-20 07:57] LABS: Glucose, Whole Blood 254 mg/dL (60-115)
[2024-04-20] MEDS: Insulin Lispro 100 UNIT/ML 3 ML VIAL SUBCUT (08:04)
[2024-04-20] MEDS: Acetaminophen 325 MG TABLET 975 MG PO ×2 (08:05→21:15)
[2024-04-20] MEDS: 0.9 % Sodium Chloride Flush 3 ML SYRINGE IVFLUSH (08:05)
--- NOTE | 2024-04-20 10:06 | PM.EVENT ---
Event Note Date of Service: 04/20/24 Event Note: Right hip fx NPO plan to take to OR at 4pm today spoke with mane, daughter/HCP she signs consents as patient is demented patient lives at home Time Spent With Patient Time: Total time managing care of this patient today ____ minutes.
--- NOTE | 2024-04-20 10:07 | P.CONOP_ITS ---
History of Present Illness HPI Consult date: 04/20/24 <Elizabeth Mcknight PA-C - Last Filed: 04/20/24 16:00> Chief complaint: Right femur fracture <WENDI Huff Last Filed: 04/20/24 16:00> Narrative: 88-year-old woman with a history of atrial fibrillation on rivaroxaban, Last dose Sunday evening. She was visiting at her daughter's house, She was laying down however she had to get up to go to the bathroom. When she stood up from the bed she lost her balance and fell and injured her right hip. Upon evaluation in the emergency department x-rays were obtained and she was found to have a right intertrochanteric fracture. she was admitted to the medical service and Orthopedics was consulted For surgical recommendations. <Elizabeth Mcknight PA-C Last Filed: 04/20/24 16:00> Review of Systems 2 Review of Systems: Yes all other systems are reviewed and are negative < Elizabeth Mcknight PA-C - Last Filed: 04/20/24 16:00> [facility] Past Medical History Medical History: Medical History Urinary tract infection with fever Persistent atrial fibrillation Left thigh pain Abdominal mass, LUQ (left upper quadrant) Iliotibial band syndrome of left side UTI (urinary tract infection) Herpes zoster Orthostatic hypotension Acute hyponatremia Weakness COVID-19 Breast asymmetry Atrial fibrillation with rapid ventricular response Hyperkalemia Essential hypertension Atherosclerotic cardiovascular disease Chronic heart failure with preserved ejection fraction (HFpEF) Iliotibial band syndrome of right side Disc degeneration, lumbar Cognitive dysfunction 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 Atrial fibrillation Osteopenia Hypothyroid Spinal stenosis of lumbar region Degenerative disc disease, lumbar Type 2 diabetes mellitus with hyperglycemia <WENDI Huff Last Filed: 04/20/24 16:00> Family History Family History: Family History Father CVD (cardiovascular disease) Mother CVD (cardiovascular disease) Stroke <WENDI Huff Last Filed: 04/20/24 16:00> Surgical History Surgical History: Surgical History History of removal of cyst History of appendectomy History of eye surgery History of cataract surgery History of cholecystectomy History of section History of knee replacement History of hip replacement <Elizabeth Mcknight PA-C - Last Filed: 04/20/24 16:00> Social History Social History: Social History Household Members: None Household Members Other:: son comes 3 days a week, daughter lives 5 minutes away visits frequently Housing: House Do you presently have visiting nurse or other home services: No Alcohol intake: never Comment: post cardioversion Patient Tobacco Use Status: Former Tobacco user Tobacco use type: Cigarette Years Smoked: <1 Smoked in Last 30 Days: No e-Cigarette/Vaping Use: Former Use Second Hand Smoke Exposure: No Use of substances other than those prescribed or required for medical reasons: No Currently Displaying Signs/Symptoms of Drug Intoxication Withdrawal: No Have you been hit, kicked, punched, or otherwise hurt by someone within the past year? If so, by whom?: No Do you feel safe in your current relationship?: No Current Relationship Is there a partner from a previous relationship who is making you feel unsafe now?: No Are you made to feel afraid or neglected: No Advance Directives: Yes Advance Directives on File: Yes Advance Directives Date on File: 08/29/21 Do you have a plan to hurt others: No Plan Recently lost weight without trying: No Eating poorly because of decreased appetite: No Nutrition Risks: No Nutritional Risk Patient : No : No Poor oral hygiene: No service: No Current occupational status: retired Cognitive needs: Yes ([employer]) Hearing needs: No Vision needs: Yes <Elizabeth Mcknight PA-C - Last Filed: 04/20/24 16:00> Meds Allergies/Adverse reactions: Allergies Allergy/AdvReac Type Severity Reaction Status Date / Time codeine Allergy Intermediate TACHYCARDIA Verified 04/19/24 17:04 nitrofurantoin [Macrobid] Allergy Unknown confusion Verified 04/19/24 17:04 pravastatin Allergy Unknown Unknown Verified 04/19/24 17:04 rosuvastatin [Crestor] Allergy Unknown Unknown Verified 04/19/24 17:04 Sulfa (Sulfonamide Allergy Unknown unknown Verified 04/19/24 17:04 Antibiotics) sulfamethoxazole Allergy Unknown Unknown Verified 04/19/24 17:04 [From Bactrim] trimethoprim [From Bactrim] Allergy Unknown Unknown Verified 04/19/24 17:04 amlodipine AdvReac Intermediate leg Verified 04/19/24 17:04 swelling digoxin AdvReac Intermediate Confusion Verified 04/19/24 17:04 <Elizabeth Mcknight PA-C - Last Filed: 04/20/24 16:00> Active Medications: Current Medications Acetaminophen (Acetaminophen 325 Mg Tablet) 975 mg PO TID [facility] Last Admin: 04/20/24 08:05 Dose: 975 mg Calcium Carbonate (Calcium Carbonate 750 Mg Tab.Chew) 750 mg PO Q4H PRN PRN Reason: Heartburn Glucose (Glucose Gel 15 Gm Gel..Gram.) 15 gm PO Q15M PRN; Protocol PRN Reason: per Hypoglycemia Standing Ord. Dextrose (D10) 250 mls @ 750 mls/hr IV Q15M PRN; Protocol PRN Reason: per Hypoglycemia Standing Ord. Cefazolin Sodium/Dextrose (Ancef) 2 gm in 50 mls @ 100 mls/hr IV PREOP ONE Stop: 04/20/24 10:34 Insulin Human Lispro (Insulin Lispro 100 Unit/Ml 3 Ml Vial) 0 unit SUBCUT QIDACHS [facility]; Protocol Last Admin: 04/20/24 08:04 Dose: 6 unit Magnesium Hydroxide (Milk Of Magnesia 30 Ml Oral.Susp) 30 ml PO DAILY PRN PRN Reason: Constipation Melatonin (Melatonin 3 Mg Tablet) 6 mg PO BEDTIME PRN PRN Reason: Insomnia Morphine Sulfate (Morphine Sulfate 2 Mg/Ml Cartridge) 2 mg IVPUSH Q4H PRN; Protocol PRN Reason: Pain, Severe (Pain Scale 7-10) Last Admin: 04/20/24 08:55 Dose: 2 mg Sodium Chloride (0.9 % Sodium Chloride Flush 3 Ml Syringe) 3 ml IVFLUSH [facility] Last Admin: 04/20/24 08:05 Dose: 3 ml <Elizabeth Mcknight PA-C - Last Filed: 04/20/24 16:00> Home medications: Home Medications ?Medication ?Instructions ?Recorded ?Confirmed ?Last Taken ?Type travoprost 0.004 % eye drops 1 drp ophthalmic (eye) BEDTIME 06/01/20 04/20/24 11/16/23 History acetaminophen 500 mg tablet 1,000 mg PO TID PRN Pain 08/17/21 04/20/24 08/16/21 History glycerin (adult) 1 supp [place] DAILY PRN Constipation 08/17/21 04/20/24 Unknown History cholecalciferol (vitamin D3) 25 25 mcg PO DAILY 01/01/23 04/20/24 04/19/24 History mcg (1,000 unit) capsule furosemide 40 mg tablet 40 mg PO DAILY 11/17/23 04/20/24 04/19/24 History insulin glargine U-300 conc 300 12 unit subcut DAILY 11/17/23 04/20/24 04/19/24 History unit/mL (1.5 mL) subcutaneous pen (Toujeo SoloStar U-300 Insulin) insulin lispro 100 unit/mL 1 sliding scale dose subcut TIDAC 11/17/23 04/20/24 04/19/24 History subcutaneous pen (Humalog KwikPen (U-100) Insulin) calcitriol 0.25 mcg capsule 0.25 mcg PO Q48H 04/20/24 04/20/24 04/19/24 History metoprolol succinate 25 mg 25 mg PO BEDTIME PRN high BP 04/20/24 04/20/24 04/18/24 History tablet,extended release 24 hr rivaroxaban 15 mg tablet (Xarelto) 15 mg PO DAILY@1700 04/20/24 04/20/24 04/18/24 History <WENDI Huff Last Filed: 04/20/24 16:00> Physical Exam 2 Vital Signs: Vital Signs: Last Vital Signs Temp 97.6 F 04/20/24 07:55 Pulse 76 04/20/24 07:55 Resp 16 04/20/24 07:55 BP 124/58 L 04/20/24 07:55 Pulse Ox 95 04/20/24 07:55 O2 Del Method Room Air 04/20/24 07:55 O2 Flow Rate 97 04/20/24 03:23 BMI result Body Mass Index 28.6 <WENDI Huff Last Filed: 04/20/24 16:00> Const: General: cooperative, healthy appearing, comfortable, no acute distress, well developed and alert <Elizabeth Kinseydulce WENDI Garcia Last Filed: 04/20/24 16:00> Orientation/consciousness: patient oriented x3 <Elizabeth McknightTRINIYassine Garcia Last Filed: 04/20/24 16:00> HEENT: Head: Yes normal to inspection, Yes normocephalic and Yes atraumatic <Elizabeth Kinseydulce WENDI Garcia Last Filed: 04/20/24 16:00> Eyes: General: appearance normal, both eyes and all related structures < Elizabeth Mcknight WENDI Garcia Last Filed: 04/20/24 16:00> Neck: Neck: Yes normal visual inspection and Yes no lymphadenopathy <Margo Kinseydulce WENDI Garcia Last Filed: 04/20/24 16:00> Resp: Effort & Inspection: normal respiratory effort and able to speak in complete sentences <Elizabeth Kinseydulce WENDI Garcia Filed: 04/20/24 16:00> Cardio: Rate: regular rate <Elizabeth Mcknight WENDI Garcia Filed: 04/20/24 16:00> Peripheral pulses: Peripheral pulses 2+ throughout <Elizabeth Kinseydulce WENDI Filed: 04/20/24 16:00> GI: Inspection: Yes normal to inspection <Elizabeth Mcknight WENDI Garcia Last Filed: 04/20/24 16:00> Palpation (GI): Soft to palpation <Elizabeth Kinseydulce WENDI Garcia Last Filed: 04/20/24 16:00> Skin: General skin exam: no rashes or lesions noted <Elizabeth KinseyTRINI cardonaYassine Garcia Last Filed: 04/20/24 16:00> Neuro: General: patient oriented x3 <Elizabeth KinseyTRINI cardonaYassine Garcia Filed: 04/20/24 16:00> Extrem: Other: Right leg normal to inspection. Leg is shortened and externally rotated. There is mild discomfort with log roll. Pulses are present neurovascularly intact. <MargoSaida TRINI cardonaYassine Garcia Last Filed: 04/20/24 16:00> Psych: Appearance: grossly normal <Ta-Saida WENDI Mcknight - Last Filed: 04/20/24 16:00> Mental Status: mental status grossly normal <Elizabeth KinseyWENDI cardona - Last Filed: 04/20/24 16:00> Results Labs Result Diagrams: 04/20/24 05:58 04/20/24 05:58 <Elizabeth KinseyWENDI cardona - Last Filed: 04/20/24 16:00> Labs: Abnormal lab results 04/19/24 04/19/24 04/20/24 Range/Units 18:43 21:23 05:58 WBC 13.4 H (4.8-10.8) X10*3/uL RBC 3.96 L 3.66 L (4.20-5.50) X10*6/uL Hgb 11.5 L (12.0-16.0) g/dl Hct 36.8 L 34.4 L (37.0-47.0) % Immature Gran % (Auto) 0.7 H (0.0-0.4) % Neut % (Auto) 80.3 H (45-73) % Lymph % (Auto) 7.6 L (20-40) % Lymph # (Auto) 1.0 L (1.2-4.9) X10*3/uL [place] # (Auto) 1.3 H (0.1-1.2) X10*3/uL Abs Immat Gran (auto) 0.09 H (0.00-0.03) X10*3/uL Absolute Neuts (auto) 10.7 H (2.0-8.3) x10*3/uL Carbon Dioxide 30 H 30 H (22-29) mmol/L Anion Gap 11 L 11 L (12-20) BUN 23 H 23 H (9-16) mg/dL POC Glucose 303 H (60-115) mg/dL Random Glucose 268 H 275 H (60-115) mg/dL 04/20/24 Range/Units 07:53 WBC (4.8-10.8) X10*3/uL RBC (4.20-5.50) X10*6/uL Hgb (12.0-16.0) g/dl Hct (37.0-47.0) % Immature Gran % (Auto) (0.0-0.4) % Neut % (Auto) (45-73) % Lymph % (Auto) (20-40) % Lymph # (Auto) (1.2-4.9) X10*3/uL [place] # (Auto) (0.1-1.2) X10*3/uL Abs Immat Gran (auto) (0.00-0.03) X10*3/uL Absolute Neuts (auto) (2.0-8.3) x10*3/uL Carbon Dioxide (22-29) mmol/L Anion Gap (12-20) BUN (9-16) mg/dL POC Glucose 254 H (60-115) mg/dL Random Glucose (60-115) mg/dL H & H 04/19/24 04/20/24 Range/Units 18:43 05:58 Hgb 12.6 11.5 L (12.0-16.0) g/dl Hct 36.8 L 34.4 L (37.0-47.0) % All other labs normal. <Elizabeth Mcknight PA-C - Last Filed: 04/20/24 16:00> Assessment and Plan (1) Closed right hip fracture: Status: Acute <WENDI Huff Last Filed: 04/20/24 16:00> I discussed the case with Dr Kumar and explained the extent of the injury to the patient's daughter Janina and options available which include surgical intervention. I explained the procedure in detail along with the length of recovery and rehab course. I explained the risk, benefits and alternatives. Risk including, but not limited to infection, blood clots, bleeding, non union or malunion and nerve/tissue damage to surrounding areas. I answered all their questions and with their understanding they have consented to move forward with Operative Fixation of of the right hip . The patient will be T&S, med clearance obtained and NPO for surgery later today . Daughter Janina signs consents who is present at the hospital <Elizabeth Mcknight PA-C - Last Filed: 04/20/24 16:00> I examined the patient and explained the extent of the injury to the patient's daughter Janina and options available which include surgical intervention. I explained the procedure in detail along with the length of recovery and rehab course. I explained the risk, benefits and alternatives. Risk including, but not limited to infection, blood clots, bleeding, non union or malunion and nerve/tissue damage to surrounding areas. I answered all their questions and with their understanding they have consented to move forward with Operative Fixation of of the right hip . The patient will be T&S, med clearance obtained and NPO for surgery. Daughter Janina signs consents who is present at the hospital <Trent Kumar MD - Last Filed: 04/20/24 16:09> Procedures Date of Service Date of Service: 04/20/24 <Elizabeth Mcknight PA-C - Last Filed: 04/20/24 16:00> 04/20/24 <Trent Kumar MD - Last Filed: 04/20/24 16:09>
--- NOTE | 2024-04-20 11:00 | P.PNIM_ITS ---
Subjective Subjective Date of Service: 04/20/24 Interval History: Seen in f/u for fall and Right hip fracture Pain with slight movement Physical Exam 2 Vital Signs: Vital Signs: Last Vital Signs Temp 97.6 F 04/20/24 07:55 Pulse 76 04/20/24 07:55 Resp 16 04/20/24 07:55 BP 124/58 L 04/20/24 07:55 Pulse Ox 95 04/20/24 07:55 O2 Del Method Room Air 04/20/24 07:55 O2 Flow Rate 97 04/20/24 03:23 BMI result Body Mass Index 28.6 Const: Other: General: AO X 3, no acute distress Resp: CTA bilateral CVS: S1,S2,RRR GI: +BS, NT, no distention Skin: No rash MSK: shortened right leg and pain with movment Neuro: motor grossly intact Psych: appropriate affect Objective Data Active Medications Acetaminophen (Acetaminophen 325 Mg Tablet) 975 mg PO TID [facility] Last Admin: 04/20/24 08:05 Dose: 975 mg Documented By: HUNTER Calcium Carbonate (Calcium Carbonate 750 Mg Tab.Chew) 750 mg PO Q4H PRN PRN Reason: Heartburn Glucose (Glucose Gel 15 Gm Gel..Gram.) 15 gm PO Q15M PRN; Protocol PRN Reason: per Hypoglycemia Standing Ord. Dextrose (D10) 250 mls @ 750 mls/hr IV Q15M PRN; Protocol PRN Reason: per Hypoglycemia Standing Ord. Insulin Human Lispro (Insulin Lispro 100 Unit/Ml 3 Ml Vial) 0 unit SUBCUT QIDACHS [facility]; Protocol Last Admin: 04/20/24 08:04 Dose: 6 unit Documented By: HUNTER Magnesium Hydroxide (Milk Of Magnesia 30 Ml Oral.Susp) 30 ml PO DAILY PRN PRN Reason: Constipation Melatonin (Melatonin 3 Mg Tablet) 6 mg PO BEDTIME PRN PRN Reason: Insomnia Morphine Sulfate (Morphine Sulfate 2 Mg/Ml Cartridge) 2 mg IVPUSH Q4H PRN; Protocol PRN Reason: Pain, Severe (Pain Scale 7-10) Last Admin: 04/20/24 08:55 Dose: 2 mg Documented By: HUNTER Sodium Chloride (0.9 % Sodium Chloride Flush 3 Ml Syringe) [facility] Last Admin: 04/20/24 08:05 Dose: 3 ml Documented By: HUNTER Labs 04/20/24 05:58 04/20/24 05:58 Labs: Laboratory Results - last 24 hr 04/19/24 04/19/24 04/19/24 18:43 19:28 21:23 MCV 92.9 MCH 31.8 MCHC 34.2 RDW 14.6 Plt Count 246 MPV 9.6 Immature Gran % (Auto) 0.7 H Neut % (Auto) 80.3 H Lymph % (Auto) 7.6 L [place] % (Auto) 9.9 Eos % (Auto) 1.0 Baso % (Auto) 0.5 Lymph # (Auto) 1.0 L [place] # (Auto) 1.3 H Eos # (Auto) 0.1 Baso # (Auto) 0.1 Abs Immat Gran (auto) 0.09 H Absolute Neuts (auto) 10.7 H Absolute Nucleated RBC 0.000 Nucleated RBC % (auto) 0.0 Anion Gap 11 L Estim Creat Clear Calc 26.9 Estimated GFR 42 POC Glucose 303 H Random Glucose 268 H Calcium 8.8 D Magnesium 2.4 Total Bilirubin 0.6 Direct Bilirubin 0.2 AST 26 ALT 27 Alkaline Phosphatase 84 Total Protein 6.7 Albumin 3.9 Influenza Type A (PCR) NEGATIVE Influenza Type B (PCR) NEGATIVE RSV RNA Qual (PCR) NEGATIVE SARS-CoV-2 RNA (RT-PCR) NEGATIVE Blood Type O Positive Antibody Screen NEGATIVE 04/20/24 04/20/24 05:58 07:53 MCV 94.0 MCH 31.4 MCHC 33.4 RDW 14.7 Plt Count 207 MPV 9.8 Immature Gran % (Auto) Neut % (Auto) Lymph % (Auto) [place] % (Auto) Eos % (Auto) Baso % (Auto) Lymph # (Auto) [place] # (Auto) Eos # (Auto) Baso # (Auto) Abs Immat Gran (auto) Absolute Neuts (auto) Absolute Nucleated RBC 0.000 Nucleated RBC % (auto) 0.0 Anion Gap 11 L Estim Creat Clear Calc 28.3 Estimated GFR 45 POC Glucose 254 H Random Glucose 275 H Calcium 8.6 Magnesium Total Bilirubin Direct Bilirubin AST ALT Alkaline Phosphatase Total Protein Albumin Influenza Type A (PCR) Influenza Type B (PCR) RSV RNA Qual (PCR) SARS-CoV-2 RNA (RT-PCR) Blood Type Antibody Screen Assessment and Plan (1) Closed right hip fracture: Status: Acute Plan 88-year-old female with a PMH significant for?unspecified dementia, persistent AFib on Xarelto, insulin-dependent type 2 diabetes, HLD, CKD 3, HFpEF, hypothyroidism, and GERD who presents to the ED for evaluation of right hip and leg pain after fall at home. Pt will be admitted to the hospital for treatment and further evaluation of right hip fracture secondary to mechanical fall at home. Closed acute fracture of right proximal femur d/t accidental fall Analgesics on scale for pain management Orthopedic consult RCRI score 2, pt is moderate to high surgical risk given age and comorbidities Pt on Xarelto, last dose on 04/18/2024 No further workup or treatment indicated at this time Persistent AFib Continue amiodarone and metoprolol Hold Xarelto due to impending surgery HLD Continue statin HFpEF Continue metoprolol, Lasix Insulin-dependent type 2 diabetes Sliding-scale insulin, Lantus Diabetic diet Hypothyroidism Continue levothyroxine Full Code DVT Prophylaxis: Pneumatic compression due to impending surgical procedure need for inpatient: surgical repair of hip fracture Quality Stroke Does the patient have a stroke diagnosis?: No VTE Prior VTE?: No VTE Risk Level:: Medical - moderate - high VTE Device Contraindication: N/A - Device Ordered VTE Drug Contraindication: Treatment Not Indicated
[2024-04-20 11:15] LABS: Glucose, Whole Blood 195 mg/dL (60-115)
--- NOTE | 2024-04-20 12:41 | MHC.CM.PN ---
MET WITH PT AND DAUGHTER PT HAD BEEN LIIVNG AT HOME WITH FAMILY SUPPORT PT WILL NEED REHab when dcd pt has been at [facility] in the past that is familys first choice they r aware we have to look else where in case there isnt abed at [facility] when she is ready dc plan str
[2024-04-20] MEDS: Lactated Ringers 1,000 ML 80 ML IVCONT (13:20)
--- NOTE | 2024-04-20 13:26 | PHA.MEDREC ---
Addendum entered by Dolores Cardona RPh 04/20/24 13:54: reviewed by [facility]. Original Note: Pharmacy Consult ? Medication Reconciliation Pharmacy has completed the medication reconciliation. Spoke to pt's family to confirm meds. Only taking levothyroxine for thryoid medication. Not taking albuterol.
--- NOTE | 2024-04-20 15:35 | P.CONAN_ITS ---
[facility] Active Problems Active Problems: All Active Problems Closed right hip fracture (Acute) Recurrent UTI (Acute) Hematuria (Acute) Chronic combined systolic and diastolic CHF (congestive heart failure) (Acute) Encephalopathy (Acute) UTI (urinary tract infection) (Acute) Diarrhea (Acute) Persistent atrial fibrillation (Acute) Hypercholesterolemia (Acute) Impacted cerumen of both ears (Acute) Trochanteric bursitis (Acute) Iron deficiency anemia (Acute) Diarrhea (Acute) Fracture of distal end of left fibula (Acute) Pneumonia (Acute) Constipation (Acute) Hip pain, left (Acute) Chronic kidney disease, stage 3b (Acute) Cognitive impairment (Acute) Thrush (Acute) Osteoarthritis of left knee (Acute) Hypotension (Acute) Acute hyponatremia (Acute) Neck pain (Acute) MCL sprain of right knee (Acute) Gait instability (Acute) Trochanteric bursitis, right hip (Acute) Presence of total right knee joint prosthesis (Acute) UTI (urinary tract infection) (Acute) Adult general medical exam (Acute) Obstructive sleep apnea (adult) (pediatric) (Acute) Hyperkalemia (Acute) Essential hypertension (Acute) Atherosclerotic cardiovascular disease (Acute) Encounter for monitoring amiodarone therapy (Acute) Chronic heart failure with preserved ejection fraction (HFpEF) (Acute) UTI (urinary tract infection) (Acute) Renal cyst, left (Acute) Lumbar disc herniation with radiculopathy (Acute) Hip pain, right (Acute) Atrial fibrillation (Acute) Iliotibial band syndrome of right side (Acute) Disc degeneration, lumbar (Acute) History of knee replacement (Acute) 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 (Acute) Hypothyroid (Acute) Type 2 diabetes mellitus with hyperglycemia (Acute) Past Medical History Medical History Urinary tract infection with fever Persistent atrial fibrillation Left thigh pain Abdominal mass, LUQ (left upper quadrant) Iliotibial band syndrome of left side UTI (urinary tract infection) Herpes zoster Orthostatic hypotension Acute hyponatremia Weakness COVID-19 Breast asymmetry Atrial fibrillation with rapid ventricular response Hyperkalemia Essential hypertension Atherosclerotic cardiovascular disease Chronic heart failure with preserved ejection fraction (HFpEF) Iliotibial band syndrome of right side Disc degeneration, lumbar Cognitive dysfunction 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 Atrial fibrillation Osteopenia Hypothyroid Spinal stenosis of lumbar region Degenerative disc disease, lumbar Type 2 diabetes mellitus with hyperglycemia Functional capacity: bed bound Patient : No Family History Family History Father CVD (cardiovascular disease) Mother CVD (cardiovascular disease) Stroke Family history of problems with anesthesia: No Surgical History Surgical History History of removal of cyst History of appendectomy History of eye surgery History of cataract surgery History of cholecystectomy History of section History of knee replacement History of hip replacement History of Problems with Anesthesia: No Social History Social History Household Members: None Household Members Other:: son comes 3 days a week, daughter lives 5 minutes away visits frequently Housing: House Do you presently have visiting nurse or other home services: No Alcohol intake: never Comment: post cardioversion Patient Tobacco Use Status: Former Tobacco user Tobacco use type: Cigarette Years Smoked: <1 e-Cigarette/Vaping Use: Former Use Second Hand Smoke Exposure: No Advance Directives Date on File: 08/29/21 service: No Current occupational status: retired Cognitive needs: Yes (Walker) Hearing needs: No Vision needs: Yes Meds Allergies Allergy/AdvReac Type Severity Reaction Status Date / Time codeine Allergy Intermediate TACHYCARDIA Verified 04/19/24 17:04 nitrofurantoin [Macrobid] Allergy Unknown confusion Verified 04/19/24 17:04 pravastatin Allergy Unknown Unknown Verified 04/19/24 17:04 rosuvastatin [Crestor] Allergy Unknown Unknown Verified 04/19/24 17:04 Sulfa (Sulfonamide Allergy Unknown unknown Verified 04/19/24 17:04 Antibiotics) sulfamethoxazole Allergy Unknown Unknown Verified 04/19/24 17:04 [From Bactrim] trimethoprim [From Bactrim] Allergy Unknown Unknown Verified 04/19/24 17:04 amlodipine AdvReac Intermediate leg Verified 04/19/24 17:04 swelling digoxin AdvReac Intermediate Confusion Verified 04/19/24 17:04 Active Medications: Current Medications Acetaminophen (Acetaminophen 325 Mg Tablet) 975 mg PO TID [facility] Last Admin: 04/20/24 15:04 Dose: Not Given Amiodarone HCl (Amiodarone Hcl 200 Mg Tablet) 200 mg PO DAILY [facility] Last Admin: 04/20/24 13:53 Dose: Not Given Atorvastatin Calcium (Atorvastatin Calcium 10 Mg Tablet) 10 mg PO BEDTIME [facility] Calcitriol (Calcitriol 0.25 Mcg Capsule) 0.25 mcg PO Q2D@0900 [facility] Calcium Carbonate (Calcium Carbonate 750 Mg Tab.Chew) 750 mg PO Q4H PRN PRN Reason: Heartburn Glucose (Glucose Gel 15 Gm Gel..Gram.) 15 gm PO Q15M PRN; Protocol PRN Reason: per Hypoglycemia Standing Ord. Dextrose (D10) 250 mls @ 750 mls/hr IV Q15M PRN; Protocol PRN Reason: per Hypoglycemia Standing Ord. Lactated Ringer's (Lr) 1,000 mls @ 80 mls/hr IVCONT .[id number] [facility] Last Admin: 04/20/24 13:20 Dose: 80 mls/hr Insulin Human Lispro (Insulin Lispro 100 Unit/Ml 3 Ml Vial) 0 unit SUBCUT QIDACHS [facility]; Protocol Last Admin: 04/20/24 11:31 Dose: Not Given Lactulose (Lactulose 20 Gm/30 Ml Solution) 20 gm PO DAILY PRN PRN Reason: for constipation Latanoprost (Latanoprost 0.005 % Ophth Liseth 2.5 Ml Drops) 1 drop EYE-BOTH BEDTIME [facility] Levothyroxine Sodium (Levothyroxine Sodium 125 Mcg Tablet) 125 mcg PO DAILY@0600 [facility] Last Admin: 04/20/24 13:53 Dose: Not Given Magnesium Hydroxide (Milk Of Magnesia 30 Ml Oral.Susp) 30 ml PO DAILY PRN PRN Reason: Constipation Melatonin (Melatonin 3 Mg Tablet) 6 mg PO BEDTIME PRN PRN Reason: Insomnia Morphine Sulfate (Morphine Sulfate 2 Mg/Ml Cartridge) 2 mg IVPUSH Q4H PRN; Protocol PRN Reason: Pain, Severe (Pain Scale 7-10) Last Admin: 04/20/24 08:55 Dose: 2 mg Sodium Chloride (0.9 % Sodium Chloride Flush 3 Ml Syringe) 3 ml IVFLUSH QSHIFT [facility] Last Admin: 04/20/24 15:34 Dose: Not Given Vitamin D (Cholecalciferol (Vitamin D3) 25 Mcg Tablet) 25 mcg PO DAILY [facility] Home Medications ?Medication ?Instructions ?Recorded ?Confirmed ?Last Taken ?Type travoprost 0.004 % eye drops 1 drp ophthalmic (eye) BEDTIME 06/01/20 04/20/24 11/16/23 History acetaminophen 500 mg tablet 1,000 mg PO TID PRN Pain 08/17/21 04/20/24 08/16/21 History glycerin (adult) 1 supp [place] DAILY PRN Constipation 08/17/21 04/20/24 Unknown History cholecalciferol (vitamin D3) 25 25 mcg PO DAILY 01/01/23 04/20/24 04/19/24 History mcg (1,000 unit) capsule furosemide 40 mg tablet 40 mg PO DAILY 11/17/23 04/20/24 04/19/24 History insulin glargine U-300 conc 300 12 unit subcut DAILY 11/17/23 04/20/24 04/19/24 History unit/mL (1.5 mL) subcutaneous pen (Toujeo SoloStar U-300 Insulin) insulin lispro 100 unit/mL 1 sliding scale dose subcut TIDAC 11/17/23 04/20/24 04/19/24 History subcutaneous pen (Humalog KwikPen (U-100) Insulin) calcitriol 0.25 mcg capsule 0.25 mcg PO Q48H 04/20/24 04/20/24 04/19/24 History metoprolol succinate 25 mg 25 mg PO BEDTIME PRN high BP 04/20/24 04/20/24 04/18/24 History tablet,extended release 24 hr rivaroxaban 15 mg tablet (Xarelto) 15 mg PO DAILY@1700 04/20/24 04/20/24 04/18/24 History Exam Height,Weight and Vital Signs: Height 4 ft 11 in Weight 64.3 kg Last Vital Signs Temp 97.9 F 04/20/24 15:18 Pulse 78 04/20/24 15:18 Resp 16 04/20/24 15:18 BP 105/53 L 04/20/24 15:18 Pulse Ox 94 04/20/24 15:18 O2 Del Method Room Air 04/20/24 15:18 O2 Flow Rate 97 04/20/24 03:23 Pertinent Lab Results Pertinent Lab Results: Laboratory Tests 04/19/24 04/19/24 04/19/24 18:43 19:28 21:23 WBC 13.4 H RBC 3.96 L Hgb 12.6 Hct 36.8 L MCV 92.9 MCH 31.8 MCHC 34.2 RDW 14.6 Plt Count 246 MPV 9.6 Immature Gran % (Auto) 0.7 H Neut % (Auto) 80.3 H Lymph % (Auto) 7.6 L [place] % (Auto) 9.9 Eos % (Auto) 1.0 Baso % (Auto) 0.5 Lymph # (Auto) 1.0 L [place] # (Auto) 1.3 H Eos # (Auto) 0.1 Baso # (Auto) 0.1 Abs Immat Gran (auto) 0.09 H Absolute Neuts (auto) 10.7 H Absolute Nucleated RBC 0.000 Nucleated RBC % (auto) 0.0 Sodium 140 Potassium 4.0 Chloride 103 Carbon Dioxide 30 H Anion Gap 11 L BUN 23 H Creatinine 1.20 Estim Creat Clear Calc 26.9 Estimated GFR 42 POC Glucose 303 H Random Glucose 268 H Calcium 8.8 D Magnesium 2.4 Total Bilirubin 0.6 Direct Bilirubin 0.2 AST 26 ALT 27 Alkaline Phosphatase 84 Total Protein 6.7 Albumin 3.9 Influenza Type A (PCR) NEGATIVE Influenza Type B (PCR) NEGATIVE RSV RNA Qual (PCR) NEGATIVE SARS-CoV-2 RNA (RT-PCR) NEGATIVE Blood Type O Positive Antibody Screen NEGATIVE 04/20/24 04/20/24 04/20/24 05:58 07:53 11:03 WBC 8.5 RBC 3.66 L Hgb 11.5 L Hct 34.4 L MCV 94.0 MCH 31.4 MCHC 33.4 RDW 14.7 Plt Count 207 MPV 9.8 Immature Gran % (Auto) Neut % (Auto) Lymph % (Auto) [place] % (Auto) Eos % (Auto) Baso % (Auto) Lymph # (Auto) [place] # (Auto) Eos # (Auto) Baso # (Auto) Abs Immat Gran (auto) Absolute Neuts (auto) Absolute Nucleated RBC 0.000 Nucleated RBC % (auto) 0.0 Sodium 140 Potassium 4.2 Chloride 103 Carbon Dioxide 30 H Anion Gap 11 L BUN 23 H Creatinine 1.14 Estim Creat Clear Calc 28.3 Estimated GFR 45 POC Glucose 254 H 195 H Random Glucose 275 H Calcium 8.6 Magnesium Total Bilirubin Direct Bilirubin AST ALT Alkaline Phosphatase Total Protein Albumin Influenza Type A (PCR) Influenza Type B (PCR) RSV RNA Qual (PCR) SARS-CoV-2 RNA (RT-PCR) Blood Type Antibody Screen Airway TM Dist: >3cm Neck ROM: Full Heart: irreg Lungs: CTA Assessment and Plan Assessment Anesthesia Assessment: Anesthesia Plan Discussed and Chart Reviewed Final Anesthetic Review Family History of Problems with Anesthesia: No History of Problems with Anesthesia: No NPO: Yes ASA Class: III and Emergency Final Preanesthetic Review: Meds/Allgs Chart Reviewed, Consent Obtained/Reviewed and Anes Risks/Benef Reviewed Patient Risk: Intermediate Procedure Risk: Intermediate Anesthetic Plan Anesthetic Plan: GA Disposition: Standard PACU
--- NOTE | 2024-04-20 16:09 | MHC.SHP ---
Pre-Procedural Eval Section A - 24 Hr Update-Section A only Date of Service: 04/20/24 The patient is an INPATIENT: Yes Changes since office visit: No Cold of Flu in the past 2 weeks, No New Medical Problems, No Changes in Medication and No Patient answered all questions The patient has been examined within 24 hours of the surgical procedure. The History & Physical has been completed within 30 days and I have reviewed it.: Yes Section B - Complete if H&P > 30 days Chief Complaint: Right femur fracture Allergies: Allergies Allergy/AdvReac Type Severity Reaction Status Date / Time codeine Allergy Intermediate TACHYCARDIA Verified 04/19/24 17:04 nitrofurantoin [Macrobid] Allergy Unknown confusion Verified 04/19/24 17:04 pravastatin Allergy Unknown Unknown Verified 04/19/24 17:04 rosuvastatin [Crestor] Allergy Unknown Unknown Verified 04/19/24 17:04 Sulfa (Sulfonamide Allergy Unknown unknown Verified 04/19/24 17:04 Antibiotics) sulfamethoxazole Allergy Unknown Unknown Verified 04/19/24 17:04 [From Bactrim] trimethoprim [From Bactrim] Allergy Unknown Unknown Verified 04/19/24 17:04 amlodipine AdvReac Intermediate leg Verified 04/19/24 17:04 swelling digoxin AdvReac Intermediate Confusion Verified 04/19/24 17:04 Plan I have reviewed the history and physical and performed a pertinent physical examination on my patient. No changes have occurred unless specified. Time Spent With Patient Time: Total time managing care of this patient today ____ minutes.
[2024-04-20 16:30] LABS: Glucose, Whole Blood 190 mg/dL (60-115)
--- NOTE | 2024-04-20 17:30 | P.BOP_ITS ---
Brief Operative Note Date of Service: 04/20/24 Pre-op diagnosis: right hip fracture Post-op diagnosis: same Procedure: operative fixation right intertrochanteric hip fracture (IMN) Implants: [place] 11x 180 125 deg with 85 mm hip screw and 32.5 distal interlock Surgeon: Trent Kumar MD Anesthesia: GETA Was an Nanny Babysitter used for this Procedure?: Yes Nanny Babysitter: Elizabeth Mcknight Estimated blood loss (mL): 150 IV fluids (mL): 750 Pathology: none sent Condition: stable Disposition: PACU
--- NOTE | 2024-04-20 17:51 | P.OP_ITS ---
Operative Note Operative Note Date of Service: 04/20/24 Narrative: Date of Service: 04/20/24 Pre-op diagnosis: right hip fracture Post-op diagnosis: same Procedure: operative fixation right intertrochanteric hip fracture (IMN) Implants: [place] 11x 180 125 deg with 85 mm hip screw and 32.5 distal interlock Surgeon: Trent Kumar MD Anesthesia: GETA Was an Chip Mixing Machine Operator used for this Procedure?: Yes Chip Mixing Machine Operator: Elizabeth Mcknight Estimated blood loss (mL): 150 IV fluids (mL): 750 Pathology: none sent Condition: stable Disposition: PACU Procedure in detail: Patient was brought to the operating room and prepped and draped in standard sterile fashion. Time-out was called to identify proper site procedure proper surgeon and IV antibiotics per weight were administered. She was positioned on the fracture table and a traction and slight internal rotation were performed and biplanar fluoroscopy confirmed initial fracture reduction. I then made a stab incision proximal to the greater trochanter in using a guidewire made a entry point just lateral to the tip of the greater trochanter and placed a guidewire into the femoral metadiaphysis. I then over-reamed with 15 mm Reamer placed my ball-tip guidewire down distally in the femur and measured my length. I selected an [id number] 125 deg IM nail and reamed up to a 13. I then inserted the nail. I turned my attention to the hip screw where I used a guidewire and a tip apex distance of less than 1.5 measured an 85mm hip screw. I then pre drilled and placed a hip screw using biplanar fluoroscopy. Once I was satisfied with the position of the hip screw I turned my attention to the distal aspect of the nail. Usingthe dynamic guide I placed 1 dynamic distal interlocking screw using standard AO technique. I then removed all I then placed my set screw proximally and removed all extraneous instrumentation. Final biplanar radiographs were taken. I was satisfied with the position of the hardware and the fracture reduction. I think copiously irrigated closed with absorbable sutures efren and injected 30 mL of into the area of the incisions. Traction was let down patient was placed in sterile dressing awakened from anesthesia brought to recovery room stable condition there were no known complications.
[2024-04-20 18:14] LABS: Glucose, Whole Blood 224 mg/dL (60-115)
[2024-04-20] MEDS: ondansetron HCL 4 MG/2 ML VIAL IVPUSH (18:19)
[2024-04-20] MEDS: Enoxaparin Sodium 30 MG/0.3 ML SYRINGE SUBCUT (18:23)
--- NOTE | 2024-04-20 18:27 | PC.NURSE ---
Pt returned from PACU A&Ox1, unchanged from previous assessment. VSS, see flow sheet for values. Pt reporting nausea and began vomiting small amount, PRN Zofran given per MAR pending results. Blood sugar checked 224, pts daughter at bedside refusing insulin d/t pts nausea and inability to eat at this time.
[2024-04-20 20:57] LABS: Glucose, Whole Blood 250 mg/dL (60-115)
[2024-04-20] MEDS: Atorvastatin Calcium 10 MG TABLET PO (21:15)
[2024-04-20] MEDS: ceFAZolin Sodium/Dextrose,Iso 2 GM/50 ML PIGGYBACK IV (22:10)
[2024-04-21] VITALS (11 sets, daily range): BP systolic 88–122; BP diastolic 46–57; PULSE 82–121; RESP 15–20; TEMP 36.1–36.9; O2SAT 92–100
--- NOTE | 2024-04-21 | ECG_ITS ---
Test Reason : LOW BP Blood Pressure : */* mmHG Vent. Rate : 101 BPM Atrial Rate : * BPM P-R Int : * ms QRS Dur : 112 ms QT Int : 406 ms P-R-T Axes : * -27 131 degrees QTcB Int : 526 ms Atrial fibrillation with rapid ventricular response with premature ventricular or aberrantly conducted complexes Moderate voltage criteria for LVH, may be normal variant ( R in aVL , [place] product ) Marked ST abnormality, possible lateral subendocardial injury Prolonged QT Abnormal ECG When compared with ECG of 19-Apr-2024 18:32, No significant changes seen Referred By: Luis Daniel Latif Electronically Signed By: Ulises Talavera
[2024-04-21] MEDS: Lactated Ringers 1,000 ML 80 ML IVCONT (01:57)
[2024-04-21] MEDS: Morphine Sulfate 2 MG/ML CARTRIDGE IVPUSH (03:48)
[2024-04-21] MEDS: Levothyroxine Sodium 125 MCG TABLET PO (05:42)
[2024-04-21 07:35] LABS: Glucose, Whole Blood 283 mg/dL (60-115)
[2024-04-21] MEDS: Insulin Lispro 100 UNIT/ML 3 ML VIAL SUBCUT ×3 (07:49→21:00)
[2024-04-21] MEDS: Acetaminophen 325 MG TABLET 975 MG PO ×2 (09:16→14:13)
[2024-04-21] MEDS: Amiodarone HCL 200 MG TABLET PO (09:16)
[2024-04-21] MEDS: Cholecalciferol (Vitamin D3) 25 MCG TABLET PO (09:16)
[2024-04-21] MEDS: calcitrioL 0.25 MCG CAPSULE PO (09:16)
[2024-04-21] MEDS: oxyCODONE HCl Immed Release 5 MG TABLET PO ×2 (09:16→20:18)
[2024-04-21] MEDS: Celecoxib 200 MG CAPSULE PO (09:16)
--- NOTE | 2024-04-21 10:08 | PM.PNORT ---
Subjective Subjective Date of Service: 04/21/24 Interval history: Postop day 1 status post right hip IM nail No overnight events Resting comfortably in bed Patient is alert to self Physical Exam Vital Signs: Vital Signs: Last Vital Signs Temp 98.4 F 04/21/24 07:33 Pulse 95 04/21/24 07:33 Resp 16 04/21/24 07:33 BP 102/54 L 04/21/24 07:33 Pulse Ox 100 04/21/24 07:33 O2 Del Method Nasal Cannula 04/21/24 07:33 O2 Flow Rate 2 04/21/24 07:33 BMI result Body Mass Index 28.6 Const: General: cooperative, healthy appearing and no acute distress Resp: Effort & Inspection: normal respiratory effort and able to speak in complete sentences Cardio: Rate: regular rate Peripheral pulses: Peripheral pulses 2+ throughout GI: Palpation (GI): Soft to palpation Skin: General skin exam: no rashes or lesions noted Extrem: Other: Bandage clean dry and intact. Hettinger intact. No erythema or effusion. Calf supple nontender. Neurovascularly intact. Procedures Date of Service Date of Service: 04/21/24 Progress Note: A&P Assessment and plan (1) Closed right hip fracture: Status: Acute Plan Pain management Begin PT for right hip IM nail/weightbear as tolerated Begin Lovenox, 2 doses then resume Eliquis Dispo pending PT eval and medical management Time Spent With Patient Time: Total time managing care of this patient today ____ minutes. Quality Stroke Does the patient have a stroke diagnosis?: No VTE Prior VTE?: No VTE Risk Level:: Medical - moderate - high VTE Device Contraindication: N/A - Device Ordered VTE Drug Contraindication: Treatment Not Indicated
[2024-04-21 11:30] LABS: Glucose, Whole Blood 223 mg/dL (60-115)
--- NOTE | 2024-04-21 11:59 | P.PNIM_ITS ---
Subjective Subjective Date of Service: 04/21/24 Interval History: Seen in f/u for fall and Right hip fracture s/p surgery yesterday, patient seem delirius this morning Physical Exam 2 Vital Signs: Vital Signs: Last Vital Signs Temp 97 F 04/21/24 11:25 Pulse 82 04/21/24 11:25 Resp 15 04/21/24 11:25 BP 88/51 L 04/21/24 11:25 Pulse Ox 92 04/21/24 11:25 O2 Del Method Room Air 04/21/24 11:25 O2 Flow Rate 2 04/21/24 07:33 BMI result Body Mass Index 28.6 Const: Other: General: AO X 3, no acute distress Resp: CTA bilateral CVS: S1,S2,RRR GI: +BS, NT, no distention Skin: No rash, surgery site d/c/i Neuro: motor grossly intact Psych: appropriate affect Objective Data Active Medications Acetaminophen (Acetaminophen 325 Mg Tablet) 975 mg PO TID [facility] Last Admin: 04/21/24 09:16 Dose: 975 mg Documented By: AROLDO Amiodarone HCl (Amiodarone Hcl 200 Mg Tablet) 200 mg PO DAILY [facility] Last Admin: 04/21/24 09:16 Dose: 200 mg Documented By: AROLDO Atorvastatin Calcium (Atorvastatin Calcium 10 Mg Tablet) 10 mg PO BEDTIME [facility] Last Admin: 04/20/24 21:15 Dose: 10 mg Documented By: PRATIBHA Calcitriol (Calcitriol 0.25 Mcg Capsule) 0.25 mcg PO Q2D@0900 [facility] Last Admin: 04/21/24 09:16 Dose: 0.25 mcg Documented By: AROLDO Calcium Carbonate (Calcium Carbonate 750 Mg Tab.Chew) 750 mg PO Q4H PRN PRN Reason: Heartburn Celecoxib (Celecoxib 200 Mg Capsule) 200 mg PO DAILY [facility] Last Admin: 04/21/24 09:16 Dose: 200 mg Documented By: AROLDO Enoxaparin Sodium (Enoxaparin Sodium 30 Mg/0.3 Ml Syringe) 30 mg SUBCUT Q24H [facility] Stop: 04/21/24 18:01 Last Admin: 04/20/24 18:23 Dose: 30 mg Documented By: HUNTER Glucose (Glucose Gel 15 Gm Gel..Gram.) 15 gm PO Q15M PRN; Protocol PRN Reason: per Hypoglycemia Standing Ord. Dextrose (D10) 250 mls @ 750 mls/hr IV Q15M PRN; Protocol PRN Reason: per Hypoglycemia Standing Ord. Lactated Ringer's (Lr) 1,000 mls @ 80 mls/hr IVCONT .[id number] [facility] Last Admin: 04/21/24 01:57 Dose: 80 mls/hr Documented By: PRATIBHA Insulin Human Lispro (Insulin Lispro 100 Unit/Ml 3 Ml Vial) 0 unit SUBCUT QIDACHS [facility]; Protocol Last Admin: 04/21/24 11:45 Dose: 4 unit Documented By: AROLDO Lactulose (Lactulose 20 Gm/30 Ml Solution) 20 gm PO DAILY PRN PRN Reason: for constipation Latanoprost (Latanoprost 0.005 % Ophth Liseth 2.5 Ml Drops) 1 drop EYE-BOTH BEDTIME [facility] Last Admin: 04/20/24 22:05 Dose: Not Given Documented By: PRATIBHA Non-Admin Reason: own drops per daughter Levothyroxine Sodium (Levothyroxine Sodium 125 Mcg Tablet) 125 mcg PO DAILY@0600 [facility] Last Admin: 04/21/24 05:42 Dose: 125 mcg Documented By: PRATIBHA Magnesium Hydroxide (Milk Of Magnesia 30 Ml Oral.Susp) 30 ml PO DAILY PRN PRN Reason: Constipation Melatonin (Melatonin 3 Mg Tablet) 6 mg PO BEDTIME PRN PRN Reason: Insomnia Naloxone HCl (Naloxone Hcl 0.4 Mg/Ml Vial) 0.04 mg IVPUSH Q5M PRN PRN Reason: Excessive sedation or RR < 8 Ondansetron HCl (Ondansetron Hcl 4 Mg/2 Ml Vial) 4 mg IVPUSH Q4H PRN PRN Reason: Nausea and Vomiting Last Admin: 04/20/24 18:19 Dose: 4 mg Documented By: HUNTER Oxycodone HCl (Oxycodone Hcl Immed Release 5 Mg Tablet) 5 mg PO Q4H PRN PRN Reason: Pain, Mild 1-3,fever,headache Last Admin: 04/21/24 09:16 Dose: 5 mg Documented By: AROLDO Sodium Chloride (0.9 % Sodium Chloride Flush 3 Ml Syringe) [facility] Last Admin: 04/21/24 07:50 Dose: Not Given Documented By: AROLDO Non-Admin Reason: IV Running Vitamin D (Cholecalciferol (Vitamin D3) 25 Mcg Tablet) 25 mcg PO DAILY [facility] Last Admin: 04/21/24 09:16 Dose: 25 mcg Documented By: AROLDO Labs 04/20/24 05:58 04/20/24 05:58 Labs: Laboratory Results - last 24 hr 04/20/24 04/20/24 04/20/24 16:07 18:09 20:37 POC Glucose 190 H 224 H 250 H 04/21/24 04/21/24 07:27 11:26 POC Glucose 283 H 223 H Assessment and Plan (1) Closed right hip fracture: Status: Acute Plan 88-year-old female with a PMH significant for?unspecified dementia, persistent AFib on Xarelto, insulin-dependent type 2 diabetes, HLD, CKD 3, HFpEF, hypothyroidism, and GERD who presents to the ED for evaluation of right hip and leg pain after fall at home. Pt will be admitted to the hospital for treatment and further evaluation of right hip fracture secondary to mechanical fall at home. Closed acute fracture of right proximal femur d/t accidental fall s/p surgical repair 04/20 APAP, oxycodone for pain restart Xarelto when ok with ortho Persistent AFib Continue amiodarone and metoprolol Hold Xarelto due to impending surgery HLD Continue statin HFpEF Continue metoprolol, Lasix Insulin-dependent type 2 diabetes Sliding-scale insulin, Lantus 5 (12 at home) Diabetic diet Hypothyroidism Continue levothyroxine Full Code DVT Prophylaxis: Pneumatic compression, xarelto when ok with surgery need for inpatient: surgical repair of hip fracture Quality Stroke Does the patient have a stroke diagnosis?: No VTE Prior VTE?: No VTE Risk Level:: Medical - moderate - high VTE Device Contraindication: N/A - Device Ordered VTE Drug Contraindication: Treatment Not Indicated
[2024-04-21 12:08] LABS: Hematocrit 26.1 % (37.0-47.0)
[2024-04-21 12:17] LABS: Hemoglobin 8.6 g/dl (12.0-16.0)
[2024-04-21 12:25] LABS: Anion Gap 11 (12-20); Blood Urea Nitrogen 30 mg/dL (9-16); Carbon Dioxide 29 mmol/L (22-29); Chloride 103 mmol/L (96-108); Creatinine Clr Calc Pharmacy 22.1; Estimated Glomerular Filt Rate 34; Glucose Random 189 mg/dL (60-115); Potassium 4.3 mmol/L (3.3-5.1); Sodium 139 mmol/L (135-145)
[2024-04-21] MEDS: Lactated Ringers 1,000 ML 125 ML IVCONT (13:34)
--- NOTE | 2024-04-21 15:41 | MHC.CM.PN ---
Per MD rounds patient not medically cleared for dc. PT rec STR. Daughter's first choice [facility]. However, they have not offered a bed. Bed accepted at [facility]. CM will continue to follow.
[2024-04-21 16:21] LABS: Glucose, Whole Blood 186 mg/dL (60-115)
[2024-04-21 17:07] LABS: Hematocrit 25.6 % (37.0-47.0); Hemoglobin 8.4 g/dl (12.0-16.0)
[2024-04-21] MEDS: Enoxaparin Sodium 30 MG/0.3 ML SYRINGE SUBCUT (18:07)
[2024-04-21 19:36] LABS: Troponin-I High Sensitivity 17.8 ng/L (<3.5-17.0)
[2024-04-21 20:21] LABS: Glucose, Whole Blood 287 mg/dL (60-115)
[2024-04-21] MEDS: Atorvastatin Calcium 10 MG TABLET PO (20:52)
[2024-04-21] MEDS: Latanoprost 0.005 % Ophth Sol 2.5 ML DROPS 1 DROP EYE-BOTH (21:00)
--- NOTE | 2024-04-21 21:01 | PC.NURSE ---
pt's blood sugar was 287. pt's daughter only wanted her to get 2units because she has not eaten anything all day.she takes care of her blood sugars and insulin at home.
[2024-04-22] VITALS (7 sets, daily range): BP systolic 108–134; BP diastolic 51–85; PULSE 87–102; RESP 16–20; TEMP 36–36.8; O2SAT 92–99
[2024-04-22] MEDS: Lactated Ringers 1,000 ML 125 ML IVCONT ×2 (00:41→13:56)
[2024-04-22] MEDS: Acetaminophen 1,000 MG/100 ML PIGGYBACK 16.7 MG IV ×2 (02:19→21:10)
[2024-04-22] MEDS: Melatonin 3 MG TABLET 6 MG PO ×2 (02:33→21:03)
[2024-04-22] MEDS: Levothyroxine Sodium 125 MCG TABLET PO (06:04)
[2024-04-22 06:22] LABS: Hematocrit 29.9 % (37.0-47.0); Hemoglobin 9.8 g/dl (12.0-16.0); Mean Corpuscular HGB Conc 32.8 g/dl (31.0-35.0); Mean Corpuscular Hemoglobin 30.7 pg (27.0-33.0); Mean Corpuscular Volume 93.7 fL (80.0-98.0); Mean Platelet Volume 11.2 fL (9.4-12.3); Platelet Count 139 X10*3/uL (160-400); Red Blood Count 3.19 X10*6/uL (4.20-5.50); Red Cell Distribution Width 17.1 % (11.0-16.0)
[2024-04-22 06:42] LABS: Anion Gap 18 (12-20); Blood Urea Nitrogen 38 mg/dL (9-16); Calcium 8.2 mg/dL (8.4-10.2); Carbon Dioxide 21 mmol/L (22-29); Chloride 100 mmol/L (96-108); Creatinine Clr Calc Pharmacy 17.2; Estimated Glomerular Filt Rate 25; Glucose Random 399 mg/dL (60-115); Potassium 4.5 mmol/L (3.3-5.1); Sodium 134 mmol/L (135-145)
[2024-04-22] MEDS: Insulin Lispro 100 UNIT/ML 3 ML VIAL SUBCUT ×4 (06:51→21:03)
--- NOTE | 2024-04-22 07:39 | PM.PNORT ---
Subjective Subjective Date of Service: 04/22/24 Interval history: Postop day 2 status post right hip IM nail No overnight events Resting comfortably in bed Patient is alert to self Physical Exam Vital Signs: Vital Signs: Last Vital Signs Temp 96.8 F 04/22/24 03:38 Pulse 102 H 04/22/24 03:38 Resp 16 04/22/24 03:38 BP 108/58 L 04/22/24 03:38 Pulse Ox 98 04/22/24 03:38 O2 Del Method Nasal Cannula 04/22/24 03:38 O2 Flow Rate 1 04/22/24 03:38 BMI result Body Mass Index 28.6 Const: General: cooperative, healthy appearing and no acute distress Resp: Effort & Inspection: normal respiratory effort and able to speak in complete sentences Cardio: Rate: regular rate Peripheral pulses: Peripheral pulses 2+ throughout GI: Palpation (GI): Soft to palpation Skin: General skin exam: no rashes or lesions noted Extrem: Other: Bandage clean dry and intact. Den intact. No erythema or effusion. Calf supple nontender. Neurovascularly intact. Procedures Date of Service Date of Service: 04/22/24 Progress Note: A&P Assessment and plan (1) Closed right hip fracture: Status: Acute Plan Pain management PT for right hip IM nail/weightbear as tolerated Lovenox, 2 doses then resume Eliquis Dispo pending PT eval and medical management Time Spent With Patient Time: Total time managing care of this patient today ____ minutes. Quality Stroke Does the patient have a stroke diagnosis?: No VTE Prior VTE?: No VTE Risk Level:: Medical - moderate - high VTE Device Contraindication: N/A - Device Ordered VTE Drug Contraindication: Treatment Not Indicated
[2024-04-22 08:06] LABS: Glucose, Whole Blood 390 mg/dL (60-115)
[2024-04-22 08:39] LABS: Glucose, Whole Blood 351 mg/dL (60-115)
[2024-04-22] MEDS: Insulin Glargine,Hum.rec.anlog 100 UNIT/ML 10 ML VIAL SUBCUT (09:02)
[2024-04-22] MEDS: Cholecalciferol (Vitamin D3) 25 MCG TABLET PO (09:02)
[2024-04-22] MEDS: Amiodarone HCL 200 MG TABLET PO (09:02)
[2024-04-22] MEDS: 0.9 % Sodium Chloride Flush 3 ML SYRINGE IVFLUSH (09:05)
--- NOTE | 2024-04-22 10:02 | HO.POSTANES ---
Post Anesthesia Evaluation Post Anesthesia Evaluation Date of Service: 04/22/24 Vital Signs: Vital Signs Temp Pulse Resp BP Pulse Ox O2 Del Method O2 Flow Rate 04/22/24 08:00 96.8 F 91 16 117/85 99 1 04/22/24 03:38 96.8 F 102 H 16 108/58 L 98 Nasal Cannula 1 04/22/24 00:00 97.4 F 98 18 108/51 L 04/21/24 23:47 97.0 F 104 H 16 101/52 L 100 Nasal Cannula 1 04/21/24 23:45 97 F 95 18 101/52 L Anesthesia: General Mental Status: Awake Pain Control: Satisfactory Nausea/Vomiting: None Hydration: Adequate Anesthesia-Related Issues: No Anes. Related Issues
[2024-04-22] MEDS: oxyCODONE HCl Immed Release 5 MG TABLET PO ×2 (10:54→16:46)
--- NOTE | 2024-04-22 10:58 | HO.PM.IMPN ---
Subjective Subjective Date of Service: 04/22/24 Interval History: Seen in f/u for fall and Right hip fracture pt was lethargic yesterday but seems much better blood pressure has imprrove with blood and fluid blood sugars on the high side today Physical Exam Vital Signs: Vital Signs: Last Vital Signs Temp 96.8 F 04/22/24 08:00 Pulse 91 04/22/24 08:00 Resp 16 04/22/24 08:00 BP 117/85 04/22/24 08:00 Pulse Ox 99 04/22/24 08:00 O2 Del Method Nasal Cannula 04/22/24 03:38 O2 Flow Rate 1 04/22/24 08:00 BMI result Body Mass Index 28.6 Const: Other: General: AO X 3, no acute distress Resp: CTA bilateral CVS: S1,S2,RRR GI: +BS, NT, no distention Skin: No rash, surgery site d/c/i Neuro: motor grossly intact Psych: appropriate affect Objective Data Active Medications Amiodarone HCl (Amiodarone Hcl 200 Mg Tablet) 200 mg PO DAILY [facility] Last Admin: 04/22/24 09:02 Dose: 200 mg Documented By: AROLDO Atorvastatin Calcium (Atorvastatin Calcium 10 Mg Tablet) 10 mg PO BEDTIME [facility] Last Admin: 04/21/24 20:52 Dose: 10 mg Documented By: VINICIO Calcitriol (Calcitriol 0.25 Mcg Capsule) 0.25 mcg PO Q2D@0900 [facility] Last Admin: 04/21/24 09:16 Dose: 0.25 mcg Documented By: AROLDO Calcium Carbonate (Calcium Carbonate 750 Mg Tab.Chew) 750 mg PO Q4H PRN PRN Reason: Heartburn Glucose (Glucose Gel 15 Gm Gel..Gram.) 15 gm PO Q15M PRN; Protocol PRN Reason: per Hypoglycemia Standing Ord. Dextrose (D10) 250 mls @ 750 mls/hr IV Q15M PRN; Protocol PRN Reason: per Hypoglycemia Standing Ord. Acetaminophen (Ofirmev) 1,000 mg in 100 mls @ 16.7 mls/hr IV .Q6H PRN PRN Reason: Pain, Severe (Pain Scale 7-10) Last Infusion: 04/22/24 08:33 Dose: Infused Documented By: AROLDO Insulin Glargine (Insulin Glargine,Hum.Rec.Anlog 100 Unit/Ml 10 Ml Vial) 5 unit SUBCUT DAILY [facility] Last Admin: 04/22/24 09:02 Dose: 5 unit Documented By: AROLDO Insulin Human Lispro (Insulin Lispro 100 Unit/Ml 3 Ml Vial) 0 unit SUBCUT QIDACHS [facility]; Protocol Last Admin: 04/22/24 06:51 Dose: 10 unit Documented By: VINICIO Lactulose (Lactulose 20 Gm/30 Ml Solution) 20 gm PO DAILY PRN PRN Reason: for constipation Latanoprost (Latanoprost 0.005 % Ophth Liseth 2.5 Ml Drops) 1 drop EYE-BOTH BEDTIME [facility] Last Admin: 04/21/24 21:00 Dose: 1 drop Documented By: VINICIO Levothyroxine Sodium (Levothyroxine Sodium 125 Mcg Tablet) 125 mcg PO DAILY@0600 [facility] Last Admin: 04/22/24 06:04 Dose: 125 mcg Documented By: VINICIO Magnesium Hydroxide (Milk Of Magnesia 30 Ml Oral.Susp) 30 ml PO DAILY PRN PRN Reason: Constipation Melatonin (Melatonin 3 Mg Tablet) 6 mg PO BEDTIME PRN PRN Reason: Insomnia Last Admin: 04/22/24 02:33 Dose: 6 mg Documented By: VINICIO Naloxone HCl (Naloxone Hcl 0.4 Mg/Ml Vial) 0.04 mg IVPUSH Q5M PRN PRN Reason: Excessive sedation or RR < 8 Ondansetron HCl (Ondansetron Hcl 4 Mg/2 Ml Vial) 4 mg IVPUSH Q4H PRN PRN Reason: Nausea and Vomiting Last Admin: 04/20/24 18:19 Dose: 4 mg Documented By: HUNTER Oxycodone HCl (Oxycodone Hcl Immed Release 5 Mg Tablet) 5 mg PO Q4H PRN PRN Reason: Pain, Mild 1-3,fever,headache Last Admin: 04/22/24 10:54 Dose: 5 mg Documented By: AROLDO Sodium Chloride (0.9 % Sodium Chloride Flush 3 Ml Syringe) 3 ml IVFLUSH [facility] Last Admin: 04/22/24 09:05 Dose: 3 ml Documented By: AROLDO Vitamin D (Cholecalciferol (Vitamin D3) 25 Mcg Tablet) 25 mcg PO DAILY [facility] Last Admin: 04/22/24 09:02 Dose: 25 mcg Documented By: AROLDO Labs 04/22/24 05:19 04/22/24 05:19 Labs: Laboratory Results - last 24 hr 04/19/24 04/21/24 04/21/24 19:28 11:26 12:00 MCV MCH MCHC RDW Plt Count MPV Absolute Nucleated RBC Nucleated RBC % (auto) Anion Gap 11 L Estim Creat Clear Calc 22.1 Estimated GFR 34 POC Glucose 223 H Random Glucose 189 H Calcium 8.0 L D Troponin I High Sens Blood Type O Positive Antibody Screen NEGATIVE Crossmatch See Detail 04/21/24 04/21/24 04/21/24 16:12 18:49 20:16 MCV MCH MCHC RDW Plt Count MPV Absolute Nucleated RBC Nucleated RBC % (auto) Anion Gap Estim Creat Clear Calc Estimated GFR POC Glucose 186 H 287 H Random Glucose Calcium Troponin I High Sens 17.8 H D Blood Type Antibody Screen Crossmatch 04/22/24 04/22/24 04/22/24 05:19 07:37 08:33 MCV 93.7 MCH 30.7 MCHC 32.8 RDW 17.1 H Plt Count 139 L D MPV 11.2 Absolute Nucleated RBC 0.000 Nucleated RBC % (auto) 0.0 Anion Gap 18 Estim Creat Clear Calc 17.2 Estimated GFR 25 POC Glucose 390 H* 351 H* Random Glucose 399 H* Calcium 8.2 L Troponin I High Sens Blood Type Antibody Screen Crossmatch Assessment and Plan (1) Closed right hip fracture: Status: Acute Plan 88-year-old female with a PMH significant for?unspecified dementia, persistent AFib on Xarelto, insulin-dependent type 2 diabetes, HLD, CKD 3, HFpEF, hypothyroidism, and GERD who presents to the ED for evaluation of right hip and leg pain after fall at home. Pt will be admitted to the hospital for treatment and further evaluation of right hip fracture secondary to mechanical fall at home. Closed acute fracture of right proximal femur d/t accidental fall s/p surgical repair 04/20 APAP for pain restart Xarelto today, lovenox in the interim Persistent AFib Continue amiodarone , holding metoprolol for low bp Xarelto as above Acute blood loss anemia, related to hip fracture s/p 1 unit of rbc with good effect HLD Continue statin HFpEF -restart lasix and metoprolol later Insulin-dependent type 2 diabetes with hyperglycemia -resume Lantus at 12, SSI, diabetic diet Hypothyroidism Continue levothyroxine Full Code DVT Prophylaxis: Pneumatic compression, anticioagulation as above need for inpatient: surgical repair of hip fracture Quality Stroke Does the patient have a stroke diagnosis?: No VTE Prior VTE?: No VTE Risk Level:: Medical - moderate - high VTE Device Contraindication: N/A - Device Ordered VTE Drug Contraindication: Treatment Not Indicated
[2024-04-22 11:52] LABS: Glucose, Whole Blood 351 mg/dL (60-115)
[2024-04-22] MEDS: Insulin Glargine,Hum.rec.anlog 100 UNIT/ML 10 ML VIAL 7 UNIT SUBCUT (12:02)
[2024-04-22 16:26] LABS: Glucose, Whole Blood 210 mg/dL (60-115)
[2024-04-22] MEDS: Rivaroxaban 15 MG TABLET PO (16:46)
[2024-04-22 19:59] LABS: Glucose, Whole Blood 177 mg/dL (60-115)
[2024-04-22] MEDS: Atorvastatin Calcium 10 MG TABLET PO (21:03)
[2024-04-22] MEDS: Latanoprost 0.005 % Ophth Sol 2.5 ML DROPS 1 DROP EYE-BOTH (21:15)
--- NOTE | 2024-04-23 00:26 | PC.NURSE ---
Addendum entered by Ami Oconnor RN 04/23/24 06:33: Patient able to void- incontinent/ unmeasured Addendum entered by Ami Oconnor RN 04/23/24 05:53: Dr Polk made aware, no new orders, continue to monitor Addendum entered by Ami Oconnor RN 04/23/24 05:19: patient bladder scanned for 274mls, got patient to commode with no effect of voiding Original Note: DTV @ 1930. Patient bladder scanned @ 2030 for 111mls 0026: Patient bladder scanned once again d/t no voiding, bladder scan resulted with 186mLs
[2024-04-23 04:00] VITALS: BP 146/66; PULSE 95; RESP 17; TEMP 36.3; O2SAT 93
[2024-04-23] MEDS: Levothyroxine Sodium 125 MCG TABLET PO (05:03)
[2024-04-23] MEDS: Lactated Ringers 1,000 ML 125 ML IVCONT (05:52)
[2024-04-23 06:52] LABS: Hematocrit 29.2 % (37.0-47.0); Hemoglobin 9.7 g/dl (12.0-16.0); Mean Corpuscular HGB Conc 33.2 g/dl (31.0-35.0); Mean Corpuscular Hemoglobin 30.9 pg (27.0-33.0); Mean Platelet Volume 11.1 fL (9.4-12.3); Platelet Count 160 X10*3/uL (160-400); Red Blood Count 3.14 X10*6/uL (4.20-5.50); Red Cell Distribution Width 16.4 % (11.0-16.0)
[2024-04-23 07:17] LABS: Anion Gap 15 (12-20); Blood Urea Nitrogen 47 mg/dL (9-16); Calcium 8.4 mg/dL (8.4-10.2); Carbon Dioxide 23 mmol/L (22-29); Chloride 99 mmol/L (96-108); Creatinine Clr Calc Pharmacy 18.9; Estimated Glomerular Filt Rate 28; Potassium 4.5 mmol/L (3.3-5.1); Sodium 132 mmol/L (135-145)
[2024-04-23 07:18] LABS: Glucose Random 354 mg/dL (60-115)
[2024-04-23 07:48] VITALS: BP 129/57; PULSE 95; RESP 16; TEMP 36.1; O2SAT 93
[2024-04-23 08:03] LABS: Glucose, Whole Blood 349 mg/dL (60-115)
[2024-04-23] MEDS: 0.9 % Sodium Chloride Flush 3 ML SYRINGE IVFLUSH ×2 (08:14→16:06)
[2024-04-23] MEDS: Amiodarone HCL 200 MG TABLET PO (08:14)
[2024-04-23] MEDS: Cholecalciferol (Vitamin D3) 25 MCG TABLET PO (08:14)
[2024-04-23] MEDS: calcitrioL 0.25 MCG CAPSULE PO (08:14)
[2024-04-23] MEDS: Insulin Lispro 100 UNIT/ML 3 ML VIAL SUBCUT ×4 (08:15→21:50)
[2024-04-23] MEDS: Insulin Glargine,Hum.rec.anlog 100 UNIT/ML 10 ML VIAL 12 UNIT SUBCUT (08:15)
[2024-04-23] MEDS: Insulin Glargine,Hum.rec.anlog 100 UNIT/ML 10 ML VIAL SUBCUT (08:52)
[2024-04-23] MEDS: oxyCODONE HCl Immed Release 5 MG TABLET PO (08:54)
--- NOTE | 2024-04-23 10:55 | MHC.CM.PN ---
Per MD rounds patient not medically cleared for dc. Likely dc to [facility] tomorrow. Daughter updated. IMM delivered.
--- NOTE | 2024-04-23 11:25 | HO.PM.IMPN ---
Subjective Subjective Date of Service: 04/23/24 Interval History: Seen in f/u for fall and Right hip fracture pt was was agitated and confused overnight and sitter was requested, however this morning was seemingly calm yet disoriented Physical Exam Vital Signs: Vital Signs: Last Vital Signs Temp 96.9 F 04/23/24 07:48 Pulse 95 04/23/24 07:48 Resp 16 04/23/24 07:48 BP 129/57 L 04/23/24 07:48 Pulse Ox 93 04/23/24 07:48 O2 Del Method Room Air 04/23/24 07:48 O2 Flow Rate 1 04/22/24 11:58 BMI result Body Mass Index 28.6 Const: Other: General: oriented to self only Resp: CTA bilateral CVS: S1,S2,RRR GI: +BS, NT, no distention Skin: No rash, surgery site d/c/i Neuro: motor grossly intact Psych: appropriate affect Objective Data Active Medications Amiodarone HCl (Amiodarone Hcl 200 Mg Tablet) 200 mg PO DAILY [facility] Last Admin: 04/23/24 08:14 Dose: 200 mg Documented By: DENNYS Atorvastatin Calcium (Atorvastatin Calcium 10 Mg Tablet) 10 mg PO BEDTIME [facility] Last Admin: 04/22/24 21:03 Dose: 10 mg Documented By: ISAAC Calcitriol (Calcitriol 0.25 Mcg Capsule) 0.25 mcg PO Q2D@0900 [facility] Last Admin: 04/23/24 08:14 Dose: 0.25 mcg Documented By: DENNYS Calcium Carbonate (Calcium Carbonate 750 Mg Tab.Chew) 750 mg PO Q4H PRN PRN Reason: Heartburn Glucose (Glucose Gel 15 Gm Gel..Gram.) 15 gm PO Q15M PRN; Protocol PRN Reason: per Hypoglycemia Standing Ord. Dextrose (D10) 250 mls @ 750 mls/hr IV Q15M PRN; Protocol PRN Reason: per Hypoglycemia Standing Ord. Acetaminophen (Ofirmev) 1,000 mg in 100 mls @ 16.7 mls/hr IV .Q6H PRN PRN Reason: Pain, Severe (Pain Scale 7-10) Last Infusion: 04/23/24 03:10 Dose: Infused Documented By: ISAAC Insulin Glargine (Insulin Glargine,Hum.Rec.Anlog 100 Unit/Ml 10 Ml Vial) 15 unit SUBCUT DAILY [facility] [place] Insulin Human Lispro (Insulin Lispro 100 Unit/Ml 3 Ml Vial) 0 unit SUBCUT QIDACHS [facility]; Protocol Last Admin: 04/23/24 08:16 Dose: 10 unit Documented By: DENNYS Lactulose (Lactulose 20 Gm/30 Ml Solution) 20 gm PO DAILY PRN PRN Reason: for constipation Latanoprost (Latanoprost 0.005 % Ophth Liseth 2.5 Ml Drops) 1 drop EYE-BOTH BEDTIME [facility] [place] Last Admin: 04/22/24 21:15 Dose: 1 drop Documented By: ISAAC Levothyroxine Sodium (Levothyroxine Sodium 125 Mcg Tablet) 125 mcg PO DAILY@0600 [facility] Last Admin: 04/23/24 05:03 Dose: 125 mcg Documented By: ISAAC Magnesium Hydroxide (Milk Of Magnesia 30 Ml Oral.Susp) 30 ml PO DAILY PRN PRN Reason: Constipation Melatonin (Melatonin 3 Mg Tablet) 6 mg PO BEDTIME PRN PRN Reason: Insomnia Last Admin: 04/22/24 21:03 Dose: 6 mg Documented By: ISAAC Naloxone HCl (Naloxone Hcl 0.4 Mg/Ml Vial) 0.04 mg IVPUSH Q5M PRN PRN Reason: Excessive sedation or RR < 8 Ondansetron HCl (Ondansetron Hcl 4 Mg/2 Ml Vial) 4 mg IVPUSH Q4H PRN PRN Reason: Nausea and Vomiting Last Admin: 04/20/24 18:19 Dose: 4 mg Documented By: HUNTER Oxycodone HCl (Oxycodone Hcl Immed Release 5 Mg Tablet) 5 mg PO Q4H PRN PRN Reason: Pain, Moderate(Pain Scale 4-6) Last Admin: 04/23/24 08:54 Dose: 5 mg Documented By: DENNYS Rivaroxaban (Rivaroxaban 15 Mg Tablet) 15 mg PO DAILY@1700 [facility] Last Admin: 04/22/24 16:46 Dose: 15 mg Documented By: AROLDO Sodium Chloride (0.9 % Sodium Chloride Flush 3 Ml Syringe) 3 ml IVFLUSH QSHIFT [facility] Last Admin: 04/23/24 08:14 Dose: 3 ml Documented By: DENNYS Vitamin D (Cholecalciferol (Vitamin D3) 25 Mcg Tablet) 25 mcg PO DAILY [facility] Last Admin: 04/23/24 08:14 Dose: 25 mcg Documented By: DENNYS Labs 04/23/24 05:43 04/23/24 05:43 Labs: Laboratory Results - last 24 hr 04/22/24 04/22/24 04/22/24 11:35 16:20 19:39 MCV MCH MCHC RDW Plt Count MPV Absolute Nucleated RBC Nucleated RBC % (auto) Anion Gap Estim Creat Clear Calc Estimated GFR POC Glucose 351 H* 210 H 177 H Random Glucose Calcium 04/23/24 04/23/24 05:43 07:46 MCV 93.0 MCH 30.9 MCHC 33.2 RDW 16.4 H Plt Count 160 MPV 11.1 Absolute Nucleated RBC 0.000 Nucleated RBC % (auto) 0.0 Anion Gap 15 Estim Creat Clear Calc 18.9 Estimated GFR 28 POC Glucose 349 H Random Glucose 354 H* Calcium 8.4 Assessment and Plan (1) Closed right hip fracture: Status: Acute Plan 88-year-old female with a PMH significant for?unspecified dementia, persistent AFib on Xarelto, insulin-dependent type 2 diabetes, HLD, CKD 3, HFpEF, hypothyroidism, and GERD who presents to the ED for evaluation of right hip and leg pain after fall at home. Pt will be admitted to the hospital for treatment and further evaluation of right hip fracture secondary to mechanical fall at home. Closed acute fracture of right proximal femur d/t accidental fall s/p surgical repair 04/20/24 APAP for pain Xarelto for dvt prophylaxis Persistent AFib Continue amiodarone , holding metoprolol for low bp Xarelto as above JAZ, likely from renal hypoperfusion from Hypotension Cr is trending down hold IV d/t developing swelling in limb Delirium likely multifactorial, post op, situation, and meds -reorient, avoid meds -meds as last resort -if getting out of bed or puling tubes, may need to reintroduce sitter Acute blood loss anemia, related to hip fracture s/p 1 unit on 04/21 with good effect HLD Continue statin HFpEF Insulin-dependent type 2 diabetes with hyperglycemia -resume Lantus at 12, SSI, diabetic diet Hypothyroidism Continue levothyroxine Full Code DVT Prophylaxis: Pneumatic compression, anticioagulation as above need for inpatient: surgical repair of hip fracture Quality Stroke Does the patient have a stroke diagnosis?: No VTE Prior VTE?: No VTE Risk Level:: Medical - moderate - high VTE Device Contraindication: N/A - Device Ordered VTE Drug Contraindication: Treatment Not Indicated
[2024-04-23 11:42] VITALS: BP 116/59; PULSE 92; RESP 16; TEMP 36.3; O2SAT 95
[2024-04-23 11:50] LABS: Glucose, Whole Blood 299 mg/dL (60-115)
--- NOTE | 2024-04-23 12:07 | PM.CNNEP ---
History of Present Illness Reason for Consult Consult date: 04/23/24 Reason for consult: JAZ Chief Complaint Chief complaint: Right femur fracture History of Present Illness Narrative: 88-year-old female with a PMH significant for?unspecified dementia, persistent AFib on Xarelto, insulin-dependent type 2 diabetes, HLD, CKD 3, HFpEF, hypothyroidism, and GERD who presents to the ED for evaluation of right hip and leg pain after fall at home. Pt is alert and oriented to self only and HPI supplemented by family who was at bedside. Pt lives by herself, though has family regularly checking in on her each day and either stays with her daughter or has family stay with her each night. This afternoon pt was using the bathroom when she slipped and fell on her right side. Pt was then unable to stand her right leg. Denies lightheadedness or dizziness. No loss of consciousness. No head strike. Denies numbness or tingling in lower extremities. Pt denies any other acute medical complaints. No chest pain/pressure, palpitations. Denies shortness or breath or difficulty breathing. No fever, chills, nausea, vomiting, abdominal pain. Baseline creatinine has been in the normal range of less than 1.0 mg. During this admission creatinine is bumped up to 1.5 mg/dL. She has had a episodes of hypotension as low as 88/40 mm Hg. She is still on Lasix once a day Review of Systems Constitutional: Denies fever(s) and Denies weight loss Cardiovascular: Denies chest pain Respiratory: Denies cough and Denies hemoptysis Gastrointestinal: Denies abdominal pain, Denies diarrhea and Denies nausea Musculoskeletal: Denies back pain Denies focal weakness [facility] Past Medical History Medical History Urinary tract infection with fever Persistent atrial fibrillation Left thigh pain Abdominal mass, LUQ (left upper quadrant) Iliotibial band syndrome of left side UTI (urinary tract infection) Herpes zoster Orthostatic hypotension Acute hyponatremia Weakness COVID-19 Breast asymmetry Atrial fibrillation with rapid ventricular response Hyperkalemia Essential hypertension Atherosclerotic cardiovascular disease Chronic heart failure with preserved ejection fraction (HFpEF) Iliotibial band syndrome of right side Disc degeneration, lumbar Cognitive dysfunction 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 Atrial fibrillation Osteopenia Hypothyroid Spinal stenosis of lumbar region Degenerative disc disease, lumbar Type 2 diabetes mellitus with hyperglycemia Family History Family History Father CVD (cardiovascular disease) Mother CVD (cardiovascular disease) Stroke Surgical History Surgical History History of removal of cyst History of appendectomy History of eye surgery History of cataract surgery History of cholecystectomy History of section History of knee replacement History of hip replacement Social History Social History Household Members: None Household Members Other:: son comes 3 days a week, daughter lives 5 minutes away visits frequently Housing: House Do you presently have visiting nurse or other home services: No Alcohol intake: never Comment: post cardioversion Patient Tobacco Use Status: Former Tobacco user Tobacco use type: Cigarette Years Smoked: <1 e-Cigarette/Vaping Use: Former Use Second Hand Smoke Exposure: No Advance Directives Date on File: 08/29/21 service: No Current occupational status: retired Cognitive needs: Yes (Walker) Hearing needs: No Vision needs: Yes Meds Allergies Allergy/AdvReac Type Severity Reaction Status Date / Time codeine Allergy Intermediate TACHYCARDIA Verified 04/19/24 17:04 nitrofurantoin [Macrobid] Allergy Unknown confusion Verified 04/19/24 17:04 pravastatin Allergy Unknown Unknown Verified 04/19/24 17:04 rosuvastatin [Crestor] Allergy Unknown Unknown Verified 04/19/24 17:04 Sulfa (Sulfonamide Allergy Unknown unknown Verified 04/19/24 17:04 Antibiotics) sulfamethoxazole Allergy Unknown Unknown Verified 04/19/24 17:04 [From Bactrim] trimethoprim [From Bactrim] Allergy Unknown Unknown Verified 04/19/24 17:04 amlodipine AdvReac Intermediate leg Verified 04/19/24 17:04 swelling digoxin AdvReac Intermediate Confusion Verified 04/19/24 17:04 Active Medications: Current Medications Amiodarone HCl (Amiodarone Hcl 200 Mg Tablet) 200 mg PO DAILY [facility] Last Admin: 04/23/24 08:14 Dose: 200 mg Atorvastatin Calcium (Atorvastatin Calcium 10 Mg Tablet) 10 mg PO BEDTIME [facility] Last Admin: 04/22/24 21:03 Dose: 10 mg Calcitriol (Calcitriol 0.25 Mcg Capsule) 0.25 mcg PO Q2D@0900 [facility] Last Admin: 04/23/24 08:14 Dose: 0.25 mcg Calcium Carbonate (Calcium Carbonate 750 Mg Tab.Chew) 750 mg PO Q4H PRN PRN Reason: Heartburn Furosemide (Furosemide 40 Mg Tablet) 40 mg PO DAILY [facility]; Protocol Glucose (Glucose Gel 15 Gm Gel..Gram.) 15 gm PO Q15M PRN; Protocol PRN Reason: per Hypoglycemia Standing Ord. Dextrose (D10) 250 mls @ 750 mls/hr IV Q15M PRN; Protocol PRN Reason: per Hypoglycemia Standing Ord. Acetaminophen (Ofirmev) 1,000 mg in 100 mls @ 16.7 mls/hr IV .Q6H PRN PRN Reason: Pain, Severe (Pain Scale 7-10) Last Infusion: 04/23/24 03:10 Dose: Infused Insulin Glargine (Insulin Glargine,Hum.Rec.Anlog 100 Unit/Ml 10 Ml Vial) 15 unit SUBCUT DAILY [facility] Insulin Human Lispro (Insulin Lispro 100 Unit/Ml 3 Ml Vial) 0 unit SUBCUT QIDACHS [facility]; Protocol Last Admin: 04/23/24 08:16 Dose: 10 unit Lactulose (Lactulose 20 Gm/30 Ml Solution) 20 gm PO DAILY PRN PRN Reason: for constipation Latanoprost (Latanoprost 0.005 % Ophth Liseth 2.5 Ml Drops) 1 drop EYE-BOTH BEDTIME [facility] Last Admin: 04/22/24 21:15 Dose: 1 drop Levothyroxine Sodium (Levothyroxine Sodium 125 Mcg Tablet) 125 mcg PO DAILY@0600 [facility] Last Admin: 04/23/24 05:03 Dose: 125 mcg Magnesium Hydroxide (Milk Of Magnesia 30 Ml Oral.Susp) 30 ml PO DAILY PRN PRN Reason: Constipation Melatonin (Melatonin 3 Mg Tablet) 6 mg PO BEDTIME PRN PRN Reason: Insomnia Last Admin: 04/22/24 21:03 Dose: 6 mg Naloxone HCl (Naloxone Hcl 0.4 Mg/Ml Vial) 0.04 mg IVPUSH Q5M PRN PRN Reason: Excessive sedation or RR < 8 Ondansetron HCl (Ondansetron Hcl 4 Mg/2 Ml Vial) 4 mg IVPUSH Q4H PRN PRN Reason: Nausea and Vomiting Last Admin: 04/20/24 18:19 Dose: 4 mg Oxycodone HCl (Oxycodone Hcl Immed Release 5 Mg Tablet) 5 mg PO Q4H PRN PRN Reason: Pain, Moderate(Pain Scale 4-6) Last Admin: 04/23/24 08:54 Dose: 5 mg Rivaroxaban (Rivaroxaban 15 Mg Tablet) 15 mg PO DAILY@1700 [facility] Last Admin: 04/22/24 16:46 Dose: 15 mg Sodium Chloride (0.9 % Sodium Chloride Flush 3 Ml Syringe) 3 ml IVFLUSH QSHIFT [facility] Last Admin: 04/23/24 08:14 Dose: 3 ml Vitamin D (Cholecalciferol (Vitamin D3) 25 Mcg Tablet) 25 mcg PO DAILY [facility] Last Admin: 04/23/24 08:14 Dose: 25 mcg Home Medications ?Medication ?Instructions ?Recorded ?Confirmed ?Last Taken ?Type travoprost 0.004 % eye drops 1 drp ophthalmic (eye) BEDTIME 06/01/20 04/20/24 11/16/23 History acetaminophen 500 mg tablet 1,000 mg PO TID PRN Pain 08/17/21 04/20/24 08/16/21 History glycerin (adult) 1 supp MA DAILY PRN Constipation 08/17/21 04/20/24 Unknown History cholecalciferol (vitamin D3) 25 25 mcg PO DAILY 01/01/23 04/20/24 04/19/24 History mcg (1,000 unit) capsule furosemide 40 mg tablet 40 mg PO DAILY 11/17/23 04/20/24 04/19/24 History insulin glargine U-300 conc 300 12 unit subcut DAILY 11/17/23 04/20/24 04/19/24 History unit/mL (1.5 mL) subcutaneous pen (Toujeo SoloStar U-300 Insulin) insulin lispro 100 unit/mL 1 sliding scale dose subcut TIDAC 11/17/23 04/20/24 04/19/24 History subcutaneous pen (Humalog KwikPen (U-100) Insulin) calcitriol 0.25 mcg capsule 0.25 mcg PO Q48H 04/20/24 04/20/24 04/19/24 History metoprolol succinate 25 mg 25 mg PO BEDTIME PRN high BP 04/20/24 04/20/24 04/18/24 History tablet,extended release 24 hr rivaroxaban 15 mg tablet (Xarelto) 15 mg PO DAILY@1700 04/20/24 04/20/24 04/18/24 History Physical Exam Vital Signs: Last Vital Signs Temp 97.4 F 04/23/24 11:42 Pulse 92 04/23/24 11:42 Resp 16 04/23/24 11:42 BP 116/59 L 04/23/24 11:42 Pulse Ox 95 04/23/24 11:42 O2 Del Method Room Air 04/23/24 11:42 O2 Flow Rate 1 04/22/24 11:58 BMI result Body Mass Index 28.6 Comfortable Neck supple no JVD. Lungs entry equal no rales. Heart S1-S2 heard no gallop or rub. Abdomen soft nontender. Neuro alert awake oriented. No asterixis. Results Lab Results 04/24/24 05:32 04/24/24 05:32 Lab results: Chemistry 04/21/24 04/22/24 04/23/24 12:00 05:19 05:43 Sodium 139 134 L 132 L Potassium 4.3 4.5 4.5 Carbon Dioxide 29 21 L 23 BUN 30 H 38 H 47 H Creatinine 1.46 H 1.88 H 1.71 H Calcium 8.0 L D 8.2 L 8.4 Hematology 04/21/24 04/21/24 04/22/24 12:00 16:43 05:19 WBC 8.0 Hgb 8.6 L D 8.4 L 9.8 L Plt Count 139 L D 04/23/24 05:43 WBC 9.0 Hgb 9.7 L Plt Count 160 Assessment and Plan (1) Closed right hip fracture: Status: Acute (2) JAZ (acute kidney injury): Status: Acute Plan Elderly woman with acute kidney injury. Acute kidney injury is mostly due to hypoperfusion from significant low blood pressure. She probably sustained tubular injury. No evidence of obstruction. Urine sediments bland therefore glomerular nephritis or interstitial disease seem unlikely. History of microscopic hematuria in the past. Workup has been essentially negative. Recent urinalysis did not reveal any hematuria. Mild hyponatremia Recommendation hold Lasix. Keep intake more than output. Continue overt nephrotoxic agents. Restrict oral free water intake/hypotonic fluids to correct hyponatremia. Watch serum sodium. Expect renal recovery. Procedures Date of Service Date of Service: 04/24/24
[2024-04-23] MEDS: Furosemide 40 MG TABLET PO (12:12)
[2024-04-23] MEDS: Lactulose 20 GM/30 ML SOLUTION PO (13:04)
[2024-04-23] MEDS: Acetaminophen 325 MG TABLET 650 MG PO ×2 (15:58→21:50)
[2024-04-23 16:00] VITALS: BP 142/64; PULSE 91; RESP 20; TEMP 37; O2SAT 95
[2024-04-23 16:39] LABS: Glucose, Whole Blood 222 mg/dL (60-115)
[2024-04-23] MEDS: Rivaroxaban 15 MG TABLET PO (17:07)
[2024-04-23 19:31] VITALS: BP 140/72; PULSE 99; RESP 20; TEMP 36.8; O2SAT 98
[2024-04-23 20:41] LABS: Glucose, Whole Blood 276 mg/dL (60-115)
[2024-04-23] MEDS: Melatonin 3 MG TABLET 6 MG PO (21:49)
[2024-04-23] MEDS: Latanoprost 0.005 % Ophth Sol 2.5 ML DROPS 1 DROP EYE-BOTH (21:51)
[2024-04-23] MEDS: Atorvastatin Calcium 10 MG TABLET PO (21:59)
[2024-04-24] VITALS: BP 125/81; PULSE 102; RESP 16; TEMP 36.4; O2SAT 97
[2024-04-24] MEDS: 0.9 % Sodium Chloride Flush 3 ML SYRINGE IVFLUSH ×2 (00:21→07:55)
[2024-04-24 04:00] VITALS: BP 168/87; PULSE 103; RESP 18; TEMP 36.2; O2SAT 98
[2024-04-24] MEDS: Acetaminophen 325 MG TABLET 650 MG PO (05:49)
[2024-04-24] MEDS: Levothyroxine Sodium 125 MCG TABLET PO (05:49)
[2024-04-24 06:59] LABS: Anion Gap 10 (12-20); Blood Urea Nitrogen 34 mg/dL (9-16); Carbon Dioxide 28 mmol/L (22-29); Chloride 104 mmol/L (96-108); Creatinine Clr Calc Pharmacy 33.2; Estimated Glomerular Filt Rate 54; Glucose Random 122 mg/dL (60-115); Potassium 4.2 mmol/L (3.3-5.1); Sodium 138 mmol/L (135-145)
[2024-04-24 07:03] LABS: Hematocrit 27.5 % (37.0-47.0); Hemoglobin 9.3 g/dl (12.0-16.0); Mean Corpuscular HGB Conc 33.8 g/dl (31.0-35.0); Mean Corpuscular Hemoglobin 31.1 pg (27.0-33.0); Platelet Count 177 X10*3/uL (160-400); Red Blood Count 2.99 X10*6/uL (4.20-5.50); Red Cell Distribution Width 15.7 % (11.0-16.0); White Blood Count 9.1 X10*3/uL (4.8-10.8)
--- NOTE | 2024-04-24 07:04 | P.CDIM_ITS ---
PROVIDER RESPONSE TEXT: To clarify, the appropriate diagnosis supported by the clinical indicators: Diabetes mellitus Type 2 with hyperglycemia: resolved QUERY TEXT: PHYSICIAN'S DOCUMENTATION REQUEST Date of Query: 04/22/2024 09:23 AM EST Patient Name: Gerri Sanchez Admit Date: 04/20/2024 Dear Luis Daniel Latif MD, A review of the medical record indicates additional documentation may be needed. Please review below and update the documentation accordingly. Clinical Indicators: LABS: 04/21 - POC glucose 287 390 H 357 H Insulin DM Type 2 Sliding scale, Lantus Diabetic diet Is there a diagnosis that correlates with these lab findings: Diabetes mellitus Type 2 with hyperglycemia resolved, possible, probable etc. Other etiology of lab findings Other (explain) Clinically unable to determine (explain) Thank you, Tamie Juarez, CCS, CDIS Use of terms such as suspected, likely, concern for, or probable (associated with a specific diagnosi s that is being evaluated, monitored, or treated as if it exists) are acceptable and can be coded in the inpatient se tting, when documented at the time of discharge. Please use your independent medical judgment in providing your response. THIS QUERY IS PART OF THE PERMANENT MEDICAL RECORD
[2024-04-24 07:31] VITALS: BP 171/73; PULSE 106; RESP 16; TEMP 36.2; O2SAT 96
[2024-04-24 07:44] LABS: Glucose, Whole Blood 181 mg/dL (60-115)
--- NOTE | 2024-04-24 07:48 | PM.PNORT ---
Subjective Subjective Date of Service: 04/24/24 Interval history: Postop day 4 status post right hip IM nail No overnight events Resting comfortably in bed Patient is alert to self, however is concerned that her daughter is not here with her at this time Physical Exam Vital Signs: Vital Signs: Last Vital Signs Temp 97.2 F 04/24/24 07:31 Pulse 106 H 04/24/24 07:31 Resp 16 04/24/24 07:31 BP 171/73 H 04/24/24 07:31 Pulse Ox 96 04/24/24 07:31 O2 Del Method Room Air 04/24/24 07:31 O2 Flow Rate 1 04/22/24 11:58 BMI result Body Mass Index 28.6 Const: General: cooperative, healthy appearing and no acute distress Resp: Effort & Inspection: normal respiratory effort and able to speak in complete sentences Cardio: Rate: regular rate Peripheral pulses: Peripheral pulses 2+ throughout GI: Palpation (GI): Soft to palpation Skin: General skin exam: no rashes or lesions noted Extrem: Other: Bandage clean dry and intact. Den intact. No erythema or effusion. Calf supple nontender. Neurovascularly intact. Procedures Date of Service Date of Service: 04/24/24 Progress Note: A&P Assessment and plan (1) Closed right hip fracture: Status: Acute Plan Pain management PT for right hip IM nail/weightbear as tolerated Lovenox, 2 doses then resume Eliquis Dispo pending PT eval and medical management Time Spent With Patient Time: Total time managing care of this patient today ____ minutes. Quality Stroke Does the patient have a stroke diagnosis?: No VTE Prior VTE?: No VTE Risk Level:: Medical - moderate - high VTE Device Contraindication: N/A - Device Ordered VTE Drug Contraindication: Treatment Not Indicated
[2024-04-24] MEDS: Insulin Lispro 100 UNIT/ML 3 ML VIAL SUBCUT ×2 (07:51→11:49)
[2024-04-24] MEDS: Insulin Glargine,Hum.rec.anlog 100 UNIT/ML 10 ML VIAL 15 UNIT SUBCUT (07:52)
[2024-04-24] MEDS: Amiodarone HCL 200 MG TABLET PO (07:53)
[2024-04-24] MEDS: Cholecalciferol (Vitamin D3) 25 MCG TABLET PO (07:53)
[2024-04-24] MEDS: Furosemide 40 MG TABLET PO (07:53)
[2024-04-24 09:22] VITALS: BP 134/64; PULSE 109; RESP 16
--- NOTE | 2024-04-24 11:02 | P.DS_ITS ---
DS: Providers Provider Date of Service: 04/24/24 Date of admission: 04/19/24 19:29 Date of discharge: 04/24/24 Primary care physician: Monique White MD Consults: 04/19/24 19:32 Consult to Orthopedics Routine Consulting Provider: [facility] Reason for consultation: Right femur fracture Has provider been notified: Yes 04/23/24 07:25 Consult to Nephrology Routine Consulting Provider: [facility] Reason for consultation: jaz Has provider been notified: Yes DS: Diagnosis Discharge Diagnosis (1) Closed right hip fracture: Status: Acute DS: Summary Hospital Course Hospital Course: admission hpi Chief Complaint: Fall at home Pt is an 88-year-old female with a PMH significant for?unspecified dementia, persistent AFib on Xarelto, insulin-dependent type 2 diabetes, HLD, CKD 3, HFpEF, hypothyroidism, and GERD who presents to the ED for evaluation of right hip and leg pain after fall at home. Pt is alert and oriented to self only and HPI supplemented by family who was at bedside. Pt lives by herself, though has family regularly checking in on her each day and either stays with her daughter or has family stay with her each night. This afternoon pt was using the bathroom when she slipped and fell on her right side. Pt was then unable to stand her right leg. Denies lightheadedness or dizziness. No loss of consciousness. No head strike. Denies numbness or tingling in lower extremities. Pt denies any other acute medical complaints. No chest pain/pressure, palpitations. Denies shortness or breath or difficulty breat jessika. No fever, chills, nausea, vomiting, abdominal pain. In the ED pt was hypertensive up to 189/96 vitals otherwise stable. Labs were significant for leukocytosis of 13.4 otherwise grossly unremarkable and around baseline for pt. Stable H&H. No significant electrolyte abnormalities. Renal function baseline. Hepatic function WNL. Tested negative for flu, RSV, COVID. CXR showed no acute findings. X-ray right hip showed acute fracture of proximal femur. EKG demonstrated atrial fibrillation with QTc of 486, similar to previous. Pt was treated with IV Tylenol. Pt will be admitted to the hospital for treatment and further evaluation of right hip fracture secondary to mechanical fall at home Hospital course: The patient was admitted for a right hip fracture due to a mechanical fall. She underwent surgical repair on 04/20/24. Her postoperative course was complicated by hypotension, which was related to anemia and blood pressure medications and resolved with IV fluids and blood transfusion. She also experienced an episode of delirium, likely of multifactorial etiology, including narcotics, anesthesia, and changes in her environment. Overall, she is doing much better, although underlying cognitive impairment is suspected. Acute renal failure was attributed to renal hypoperfusion from hypotension and blood loss. This was managed with IV fluids and blood products and has resolved. Her creatinine peaked at 1.8 and has now improved to 0.97. Anemia, related to the hip fracture, was addressed with the transfusion of 1 unit of RBC the day after surgery, which was effective. Hemoglobin remains low but stable at 9, despite her being on Xarelto. Problems: Closed acute fracture of right proximal femur d/t accidental fall s/p surgical repair 04/20/24 APAP and oxycodone for pain Xarelto for dvt prophylaxis Persistent AFib Continue amiodarone, metoprolol Xarelto as above JAZ, likely from renal hypoperfusion from Hypotension Cr has returned to normal Delirium likely multifactorial, post op, situation, and meds--overall doing better -reorient, avoid meds -meds as last resort Acute blood loss anemia, related to hip fracture s/p 1 unit on 04/21 with good effect HLD Continue statin HFpEF--continue Lasix Insulin-dependent type 2 diabetes with hyperglycemia -resume Lantus Toujeo, sliding insulin and diabetic diet Hypothyroidism Continue levothyroxine To rehab Time Attestation Discharge Coordination Time (in mins): 45 Quality: Safe Use of Opioids Does Pt have an Active Cancer Diagnosis on the Problem List?: No Quality: Stroke Does the patient have a stroke diagnosis?: No Physical Exam Vital Signs: Vital Signs: Last Vital Signs Temp 97.2 F 04/24/24 07:31 Pulse 109 H 04/24/24 09:22 Resp 16 04/24/24 09:22 BP 134/64 04/24/24 09:22 Pulse Ox 96 04/24/24 07:31 O2 Del Method Room Air 04/24/24 07:31 O2 Flow Rate 1 04/22/24 11:58 BMI result Body Mass Index 28.6 Const: Other: General: oriented to self only Resp: CTA bilateral CVS: S1,S2,RRR GI: +BS, NT, no distention Skin: No rash, surgery site d/c/i Neuro: motor grossly intact Psych: appropriate affect DS: Data Data Completed and Pending Completed studies during hospitalization [Text1]: Procedures Introduction of Remdesivir Anti-infective into Peripheral Vein, Percutaneous Approach, [employer] 5 (08/17/21) Sikhism of Cardiac Rhythm, Single (06/01/20) Labs on day of discharge: Laboratory Results - last 24 hr 04/23/24 04/23/24 04/23/24 11:42 16:24 20:32 WBC RBC Hgb Hct MCV MCH MCHC RDW Plt Count MPV Absolute Nucleated RBC Nucleated RBC % (auto) Sodium Potassium Chloride Carbon Dioxide Anion Gap BUN Creatinine Estim Creat Clear Calc Estimated GFR POC Glucose 299 H 222 H 276 H Random Glucose Calcium 04/24/24 04/24/24 05:32 07:29 WBC 9.1 RBC 2.99 L Hgb 9.3 L Hct 27.5 L MCV 92.0 MCH 31.1 MCHC 33.8 RDW 15.7 Plt Count 177 MPV 11.0 Absolute Nucleated RBC 0.000 Nucleated RBC % (auto) 0.0 Sodium 138 Potassium 4.2 Chloride 104 Carbon Dioxide 28 Anion Gap 10 L BUN 34 H Creatinine 0.97 Estim Creat Clear Calc 33.2 Estimated GFR 54 POC Glucose 181 H Random Glucose 122 H Calcium 8.0 L Discharge Plan Discharge Anticipated Discharge Date/Time: 04/24/24 10:54 Patient Disposition: Xfer SNF Discharge Diagnosis: Hip fracture, acute kidney injury, acute blood loss anemia [facility] Day (short term rehab) Elizabeth Mcknight PA-C [Physician Production Consultant] - 2 Weeks (05/05/24 10:00 [facility] Elizabeth Mcknight PA-C) Po,Monique Wesley MD [Primary Care Provider] - 1 Week Discharge Medications: New oxycodone 5 mg Tablet 5 mg PO Q4H PRN (Reason: Pain, Moderate(Pain Scale 4-6)) Qty: 20 0RF Rx Instructions: Partial Fill upon patient request. Continued cholecalciferol (vitamin D3) 25 mcg (1,000 unit) capsule 25 mcg PO DAILY (DME) FreeStyle Madeline 14 Day Sensor Kit See Rx Instructions .ROUTE .MEDSUPPLY Qty: 1 6RF Rx Instructions: Dx: E11.65 As directed, 14 days (DME) FreeStyle Madeline 14 Day Sensor Kit See Rx Instructions .Route Qty: 6 3RF Rx Instructions: As directed simvastatin 10 mg tablet 10 mg PO BEDTIME Qty: 90 3RF metoprolol succinate 100 mg tablet extended release 24 hr 100 mg PO DAILY 90 Days Qty: 90 3RF amiodarone 200 mg tablet 200 mg PO DAILY 90 Days Qty: 90 2RF levothyroxine 125 mcg tablet 125 mcg PO DAILY@0600 Qty: 90 3RF lactulose 10 gram/15 mL solution 30 ml PO DAILY PRN (Reason: for constipation) Qty: 946 0RF travoprost 0.004 % drops 1 drp ophthalmic (eye) BEDTIME acetaminophen 500 mg Tablet 1,000 mg PO TID PRN (Reason: Pain) glycerin (adult) Suppository 1 supp ID DAILY PRN (Reason: Constipation) furosemide 40 mg tablet 40 mg PO DAILY insulin glargine U-300 conc [Toujeo SoloStar U-300 Insulin] 300 unit/mL (1.5 mL) insulin pen 12 unit subcut DAILY Rx Instructions: or as directed insulin lispro [Humalog KwikPen Insulin] 100 unit/mL insulin pen 1 sliding scale dose subcut TIDAC Protocol: Insulin Correction Scale Less than or equal to 110 ---- Give (units): 0 111 to 150 Give (units): 0 151 to 200 Give (units): 2 201 to 250 Give (units): 4 251 to 300 Give (units): 6 301 to 350 Give (units): 8 Greater than 350 Give (units): 10 Call MD if Blood Glucose > : 350 calcitriol 0.25 mcg capsule 0.25 mcg PO Q48H Xarelto 15 mg tablet 15 mg PO DAILY@1700 metoprolol succinate 25 mg tablet extended release 24 hr 25 mg PO BEDTIME PRN (Reason: high BP ) (DME) pen needle, diabetic [BD Eveline 2nd Gen Pen Needle] 32 gauge x 5/32 needle See Rx Instructions .ROUTE .COMPLEX Qty: 400 3RF Dose Instruction: USEN TO INJECT INSULIN FOUR TIMES DAILY Rx Instructions: USEN TO INJECT INSULIN FOUR TIMES DAILY Discharge Orders: Discharge Order (Routine); Ordered 04/24/24 Ordered By: Luis Daniel Latif Diet: Advance to usual diet Activity on Discharge: As tolerated Stand Alone Forms: Patient Portal Discharge page Print Language: Latvian Care Plan Goals: Recovery from hip fracture. Health Concerns: Hip fracture Kidney failure, acute resolved Acute blood loss anemia Plan of Treatment: Gait training, strengthening, ADLs Continue anticoag Keep dressing clean,dry and intact-no showering or tub baths Follow up with Orthopedics in 2 weeks Check CBC within a week Assessment: see above
--- NOTE | 2024-04-24 11:06 | MHC.CM.PN ---
Per MD rounds patient medically cleared for dc to [facility]. Scheduled for BLS transport to [facility] at 1pm. , RN, and daughter aware. Last IMM 04/23.
[2024-04-24 11:08] VITALS: BP 126/65; PULSE 103; RESP 16; TEMP 37; O2SAT 97
[2024-04-24 11:28] LABS: Glucose, Whole Blood 280 mg/dL (60-115)
--- NOTE | 2024-04-24 12:44 | P.PNNP_ITS ---
Subjective Subjective Date of Service: 04/24/24 Interval history: Events noted Physical Exam 2 Vital Signs: Vital Signs: Last Vital Signs Temp 98.6 F 04/24/24 11:08 Pulse 103 H 04/24/24 11:08 Resp 16 04/24/24 11:08 BP 126/65 04/24/24 11:08 Pulse Ox 97 04/24/24 11:08 O2 Del Method Room Air 04/24/24 11:08 O2 Flow Rate 1 04/22/24 11:58 BMI result Body Mass Index 28.6 Const: Other: General: oriented to self only Resp: CTA bilateral CVS: S1,S2,RRR GI: +BS, NT, no distention Skin: No rash, surgery site d/c/i Neuro: motor grossly intact Psych: appropriate affect Objective Data Labs 04/24/24 05:32 04/24/24 05:32 Labs: Laboratory Results - last 24 hr 04/23/24 04/23/24 04/24/24 16:24 20:32 05:32 WBC 9.1 RBC 2.99 L Hgb 9.3 L Hct 27.5 L MCV 92.0 MCH 31.1 MCHC 33.8 RDW 15.7 Plt Count 177 MPV 11.0 Absolute Nucleated RBC 0.000 Nucleated RBC % (auto) 0.0 Sodium 138 Potassium 4.2 Chloride 104 Carbon Dioxide 28 Anion Gap 10 L BUN 34 H Creatinine 0.97 Estim Creat Clear Calc 33.2 Estimated GFR 54 POC Glucose 222 H 276 H Random Glucose 122 H Calcium 8.0 L 04/24/24 04/24/24 07:29 11:06 WBC RBC Hgb Hct MCV MCH MCHC RDW Plt Count MPV Absolute Nucleated RBC Nucleated RBC % (auto) Sodium Potassium Chloride Carbon Dioxide Anion Gap BUN Creatinine Estim Creat Clear Calc Estimated GFR POC Glucose 181 H 280 H Random Glucose Calcium Procedures Date of Service Date of Service: 04/24/24 Assessment & Plan Assessment and plan (1) Closed right hip fracture: Status: Acute (2) JAZ (acute kidney injury): Status: Acute Plan Elderly woman with acute kidney injury. Acute kidney injury is mostly due to hypoperfusion from significant low blood pressure. She probably sustained tubular injury. No evidence of obstruction. Urine sediments bland therefore glomerular nephritis or interstitial disease seem unlikely. History of microscopic hematuria in the past. Workup has been essentially negative. Recent urinalysis did not reveal any hematuria. Mild hyponatremia -resolved Renal function is back to baseline Recommendation Keep intake more than output. Continue to avoid nephrotoxic agents. Watch serum sodium. Time Spent With Patient Time: Total time managing care of this patient today ____ minutes. Progress Note: Quality Stroke Does the patient have a stroke diagnosis?: No
--- NOTE | 2024-05-01 02:33 | PC.NURSE ---
04/21/242017 pt was medicated with oxycodone 5mg po. when i asked pt to give me a number on a scale of 1-10 she could not give me a number but she was grimacing and frowning.
== END 2024-04-24 13:24 | disposition skilled nursing facility (03) | DRG 481 ==
LOC: HO.ED 19:33 → HO.EDOVER 19:35 → HO.S3 20:09
PROVIDERS: Orthopaedic Surgery; Physician Assistant; Admitting Provider Internal Medicine; Emergency Provider Emergency Medicine; PCP Internal Medicine; Visit Provider Internal Medicine
PROC: 0QSB36Z Reposition Right Lower Femur with Intramedullary Internal Fixation Device, Percutaneous Approach (ICD-10-PCS; principal; 2024-04-20 15:00)
DX: S72.141A Displaced intertrochanteric fracture of right femur, initial encounter for closed fracture (principal); D62 Acute posthemorrhagic anemia; I13.0 Hypertensive heart and chronic kidney disease with heart failure and stage 1 through stage 4 chronic kidney disease, or unspecified chronic kidney disease; I50.32 Chronic diastolic (congestive) heart failure; I48.19 Other persistent atrial fibrillation; E87.1 Hypo-osmolality and hyponatremia; N17.9 Acute kidney failure, unspecified; F05 Delirium due to known physiological condition; E78.5 Hyperlipidemia, unspecified; E11.65 Type 2 diabetes mellitus with hyperglycemia; W19.XXXA Unspecified fall, initial encounter; I25.10 Atherosclerotic heart disease of native coronary artery without angina pectoris; E11.22 Type 2 diabetes mellitus with diabetic chronic kidney disease; N18.30 Chronic kidney disease, stage 3 unspecified; F03.90 Unspecified dementia, unspecified severity, without behavioral disturbance, psychotic disturbance, mood disturbance, and anxiety; E03.9 Hypothyroidism, unspecified; Z20.822 Contact with and (suspected) exposure to COVID-19; Z79.4 Long term (current) use of insulin; Z79.01 Long term (current) use of anticoagulants; Z79.890 Hormone replacement therapy; Z79.899 Other long term (current) drug therapy
CPT/HCPCS: 0241U; 36415; 71045; 73502; 80048; 80076; 82947; 83735; 84484; 85014; 85018; 85025; 85027; 86850; 86900; 86901; 86923; 93005; 97110; 97162; 97166; 97530; 99285; C1713; C1758; J0131; J0690; J1650; J2270; J2405; J2795; J3010; J7120; P9016

== ENCOUNTER → 2024-04-19 17:32 | Outpatient (BNV) | payer MEDICARE, SELFPAY | PROVIDERS: Admitting Provider Internal Medicine; Emergency Provider Emergency Medicine; PCP Internal Medicine; Visit Provider Internal Medicine | DX: I48.91 Unspecified atrial fibrillation (principal) | CPT/HCPCS: 93010 ==

== ENCOUNTER → 2024-04-19 17:32 | Outpatient (BNV) | payer MEDICARE, SELFPAY | PROVIDERS: Emergency Provider Emergency Medicine; PCP Internal Medicine; Visit Provider Radiology Diagnostic Radiology | DX: S72.001A Fracture of unspecified part of neck of right femur, initial encounter for closed fracture (principal); I51.7 Cardiomegaly | CPT/HCPCS: 71045; 73502 ==

== ENCOUNTER 2024-04-19 19:29 | Outpatient (BNV) | payer MEDICARE, SELFPAY | END 2024-04-21 18:37 | PROVIDERS: Admitting Provider Internal Medicine; Emergency Provider Emergency Medicine; PCP Internal Medicine; Visit Provider Internal Medicine Cardiovascular Disease | DX: I48.91 Unspecified atrial fibrillation (principal) | CPT/HCPCS: 93010 ==

== ENCOUNTER → 2024-04-19 19:29 | Outpatient (BNV) | payer MEDICARE, SELFPAY | PROVIDERS: Admitting Provider Internal Medicine; Emergency Provider Emergency Medicine; PCP Internal Medicine; Visit Provider Physician Assistant | DX: S72.001A Fracture of unspecified part of neck of right femur, initial encounter for closed fracture (principal) | CPT/HCPCS: 27245; 99024; 99223; 99499; J2003 ==

== ENCOUNTER → 2024-04-19 19:29 | Outpatient (BNV) | payer MEDICARE, SELFPAY | PROVIDERS: Admitting Provider Internal Medicine; Emergency Provider Emergency Medicine; PCP Internal Medicine; Visit Provider Internal Medicine Hypertension Specialist | DX: N17.9 Acute kidney failure, unspecified (principal); S72.001A Fracture of unspecified part of neck of right femur, initial encounter for closed fracture | CPT/HCPCS: 99223 ==

== ENCOUNTER → 2024-04-19 19:29 | Outpatient (BNV) | payer MEDICARE, SELFPAY | PROVIDERS: Admitting Provider Internal Medicine; Emergency Provider Emergency Medicine; PCP Internal Medicine; Visit Provider Internal Medicine | DX: S72.001A Fracture of unspecified part of neck of right femur, initial encounter for closed fracture (principal) | CPT/HCPCS: 99223; 99232 ==

== ENCOUNTER 2024-05-05 09:54 | Outpatient (AMB) | payer MEDICARE, SELFPAY ==
--- NOTE | 2024-05-05 10:17 | A.OFFVIS_ITS ---
Intake Visit Reasons: PO- RT hip IMN, DOS 04/20/24 NE Intake Note: Gerri is an 88 year old female who presents today in a stretcher for a post operative RT hip IMN, DOS 04/20/24 NE. Patient daughter reports that she is struggling with pain and not able to get up without assistance or a lift. Allergies codeine Allergy (Intermediate, Verified 05/05/24 10:21) TACHYCARDIA nitrofurantoin [Macrobid] Allergy (Unknown, Verified 05/05/24 10:21) confusion pravastatin Allergy (Unknown, Verified 05/05/24 10:21) Unknown rosuvastatin [Crestor] Allergy (Unknown, Verified 05/05/24 10:21) Unknown Sulfa (Sulfonamide Antibiotics) Allergy (Unknown, Verified 05/05/24 10:21) unknown sulfamethoxazole [From Bactrim] Allergy (Unknown, Verified 05/05/24 10:21) Unknown trimethoprim [From Bactrim] Allergy (Unknown, Verified 05/05/24 10:21) Unknown amlodipine Adverse Reaction (Intermediate, Verified 05/05/24 10:21) leg swelling digoxin Adverse Reaction (Intermediate, Verified 05/05/24 10:21) Confusion Medication List - Last Reconciled 05/05/24 by Elizabeth Mcknight PA-C acetaminophen 1,000 mg PO TID PRN amiodarone 200 mg PO DAILY 90 days calcitriol 0.25 mcg PO Q48H cholecalciferol (vitamin D3) 25 mcg PO DAILY dextrose (Dex4 Glucose) grams PO flash glucose sensor (FreeStyle Madeline 14 Day Sensor kit) Dx: E11.65 As directed, 14 days flash glucose sensor (FreeStyle Madeline 14 Day Sensor kit) As directed furosemide 40 mg PO DAILY glycerin (adult) 1 supp MO DAILY PRN insulin glargine U-300 conc (Toujeo SoloStar U-300 Insulin) 12 units subcut DAILY insulin lispro (Humalog KwikPen (U-100) Insulin) 1 sliding scale dose See Protocol subcut TIDAC lactulose 30 mL PO DAILY PRN levothyroxine 125 mcg PO DAILY@0600 melatonin mg PO .8 pm PRN metoprolol succinate ER 25 mg PO BEDTIME PRN metoprolol succinate ER 100 mg PO DAILY 90 days pen needle, diabetic (BD Eveline 2nd Gen Pen Needle) USEN TO INJECT INSULIN FOUR TIMES DAILY rivaroxaban (Xarelto) 15 mg PO DAILY@1700 simvastatin 10 mg PO BEDTIME tramadol 50 mg PO DAILY PRN travoprost 0.004% 1 drp ophthalmic (eye) BEDTIME HPI HPI PO- RT hip IMN, DOS 04/20/24 NE: Details: 88 yo female presents to the office today s/p Rt hip IMN 04/20/[address] Kumar. She presents in a stretching accompanied by her daughter. The patient is resting , falling asleep. She does answer questions. Daughter presents with concerns the patient is not getting up and ambulating often due to concerns with pain and overall weakness. HPI Comments Details: [facility] Medical History Urinary tract infection with fever Persistent atrial fibrillation Left thigh pain Abdominal mass, LUQ (left upper quadrant) Iliotibial band syndrome of left side UTI (urinary tract infection) Herpes zoster Orthostatic hypotension Acute hyponatremia Weakness COVID-19 Breast asymmetry Atrial fibrillation with rapid ventricular response Hyperkalemia Essential hypertension Atherosclerotic cardiovascular disease Chronic heart failure with preserved ejection fraction (HFpEF) Iliotibial band syndrome of right side Disc degeneration, lumbar Cognitive dysfunction 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 Atrial fibrillation Osteopenia Hypothyroid Spinal stenosis of lumbar region Degenerative disc disease, lumbar Type 2 diabetes mellitus with hyperglycemia Surgical History History of removal of cyst History of appendectomy History of eye surgery History of cataract surgery History of cholecystectomy History of section History of knee replacement History of hip replacement Family History Father CVD (cardiovascular disease) Mother CVD (cardiovascular disease) Stroke Social History Household Members: None Household Members Other:: son comes 3 days a week, daughter lives 5 minutes away visits frequently Housing: House Do you presently have visiting nurse or other home services: No Alcohol intake: never Comment: post cardioversion Patient Tobacco Use Status: Former Tobacco user Tobacco use type: Cigarette Years Smoked: <1 e-Cigarette/Vaping Use: Former Use Second Hand Smoke Exposure: No Advance Directives Date on File: 08/29/21 service: No Current occupational status: retired Cognitive needs: Yes (Walker) Hearing needs: No Vision needs: Yes Review of Systems Const All systems reviewed & are unremarkable except as noted in HPI and below Physical Exam Extrem Other: Right hip incision clean, dry and intact. No erythema. Mild discomfort with hip flexion NVI. Results Reviewed Results Reviewed: Xrays were obtained in the office today and personally reviewed by me of the right hip show intact IMN Assessment & Plan Assessment & Plan (1) Closed right hip fracture: Code(s): S72.001A - Fracture of unspecified part of neck of right femur, initial encounter for closed fracture Category: Medical Plan: Den removed, steri strips applied. I had a lengthy discussion with the patients daughter in the office today about the goals working with PT/OT. I did explain there is a challenge we face when the patient is less willing to work with PT or is hesitant to a participate due to fear of falling or pain. I strongly encourage she continue to advocate for the patient. I made recommendations for ther rehab as well. She will see me back in 4 weeks with xrays, sooner if needed. Orders: Orders XR femur RT 2V Today S72.90XA - Unspecified fracture of unspecified femur, initial encounter for closed fracture Coding Level of Care Code Global (94444) Diagnoses Closed right hip fracture S72.001A
--- OUTSIDE RECORDS SUMMARY | 2024-05-05 14:24 | XMS_ITS ---
Author Name [facility] Organization Unknown History of Medication Use Medication Directions Dispensed Refills Start Date End Date Stat metoprolol tartrate comp leted simvastatin completed
--- OUTSIDE RECORDS SUMMARY | 2024-05-05 14:24 | XMS_ITS ---
Author Organization [facility] Address Unknown Problems Problem Status Start Date End Date OTHER LACK OF COORDINATION (Primary) (R27.8 - ICD-10-C M) ACTIVE 12/09/2019 TYPE 2 DIABETES MELLITUS WIT HOUT COMPLICATIONS (E11.9 - ICD-10-CM) ACTIVE 12/09/2019 ESSENTIAL (PRIMARY) HYPERTENSION (I10 - ICD-10-CM) ACT JODIE 12/09/2019 UNSPECIFIED FALL, SUBSEQUENT ENCOUNTER (W19.XXXD - ICD-10-CM) ACTIVE 12/09/2019 CONSTIPATION, UNSPECIFIED (K59.00 - ICD-10-CM) ACTIVE 12/09/2019 UNSPECIFIED ATRIAL FIBRILLATION (I48.91 - ICD-10-CM) A CTIVE 12/09/2019 CHRONIC DIASTOLIC (CONGESTIV E) HEART FAILURE (I50.32 - ICD-10-CM) ACTIVE 12/09/2019 HYPOTHYROIDISM, UNSPECIFIED (E03.9 - ICD-10-CM) ACTIVE 12/09/2019 ST ELEVATION (STEMI) MYOCARD IAL INFARCTION OF UNSPECIFIED SITE (I21.3 - ICD-10-CM) ACTIVE 12/09/2019 PAIN IN RIGHT HIP (M25.551 - ICD-10-CM) ACTIVE 0 12/09/2019 UNSPECIFIED OSTEOARTHRITIS, UNSPECIFIED SITE (M19.90 - ICD-10-CM) ACTIVE 12/09/2019 UNSTEADINESS ON FEET (R26.81 - ICD-10-CM) ACTIVE 12/09/2019 WEAKNESS (R53.1 - ICD-10-CM) ACTIVE 12/09/2019 Encounters Encounter Performer Performer Role Encounter Diagnoses Location Date Discharge - Home - Private home/apt. with no home health services [facility] 12/09/2019 02:41 pm EDT - 12/11/2019 04:46 pm EDT Immunizations Vaccine Date TB 2 Step Mantoux Skin Test 12/09/2019 0 8:00 pm EDT Social History
== END 2024-05-05 11:05 | disposition home or self-care (01) ==
PROVIDERS: PCP Internal Medicine; Visit Provider Physician Assistant
DX: S72.001A Fracture of unspecified part of neck of right femur, initial encounter for closed fracture (principal)
CPT/HCPCS: 99024

== ENCOUNTER → 2024-05-05 09:59 | Outpatient (BNV) | payer MEDICARE, SELFPAY | PROVIDERS: Visit Provider Radiology Diagnostic Radiology | DX: S72.90XA Unspecified fracture of unspecified femur, initial encounter for closed fracture (principal) | CPT/HCPCS: 73552 ==

== ENCOUNTER 2024-05-05 12:52 | Outpatient (REF) | payer MEDICARE, SELFPAY ==
--- NOTE | ~2024-05-05 | XR_ITS ---
CLINICAL HISTORY: S72.90XA - Unspecified fracture of unspecified femur, initial encounter ... 2 view right femur Comparison: XA/OT - FL GUIDANCE IN OR - 04/20/24 17:09 EST CR - XR HIP RT MIN 2V W/WO PEL - 04/19/24 17:54 EST Findings: Postoperative radiographs after open reduction internal fixation of the previously identified intertrochanteric fracture of the right femur. There has been placement of an antegrade intramedullary karen with spanning gamma nail and single distal interlocking screw. There is approximately 6 mm of lateral displacement of the distal fracture fragment. No dislocation. Bones are osteopenic. Dense arterial calcification of the femoral artery. Right knee arthroplasty is visualized. IMPRESSION: Open reduction internal fixation as above. This document has been electronically signed by: Chaparro Almanzar MD on 05/05/2024 17:08:30
--- OUTSIDE RECORDS SUMMARY | 2024-05-06 13:45 | XMS_ITS | Encounter Summary ---
Author Organization [facility] Address [address] [place] [address] Care Team Providers Care Veneer Taper Name Role Phone Torrey Kwok MD Primary Care Provider [phone] Encounter Details Date Type Department Care Team (Late st Contact Info) Description 04/30/2024 Lab Requisition [facility] - Main Lab [address] [facility] [place] [address] Torrey Kwok MD [address] [place], [place] [id number] Type 2 diabetes mellitus without complications (CMS/HCC) Social History Tobacco Use Types Packs/Day Years Used Date Smoking Tobacco: Never Assessed Sex and Gender Information Value Date Recorded Sex Assigned at Not on file Gender Identity Not on file Sexual Orientation Not on file documented as of this encounter Plan of Treatment Not on file documented as of this encounter Procedures Procedure Name Priority Date/Time Associated Diagnosis Comments COMPLETE BLOOD COUNT Routine 04/30/2024 6:31 AM EST Type 2 diabetes mellitus without complications (CMS/HCC) documented in this encounter Results * (ABNORMAL) Complete blood count (04/30/2024 6:31 AM EST) WBC 6.6 4.8 - 10.8 K/mcL LAB HEMETOLOGY METHOD 04/30/2024 2:51 PM [facility] RBC 3.40(L) 3.80 - 4.80 M/[facility] LAB HEMETOLOGY METHOD 04/30/2024 2:51 PM [facility] Hemoglobin 10.7(L) 11.5 - 16.0 g/dL LAB HEMETOLOGY METHOD 04/30/2024 2:51 PM [facility] Hematocrit 34.7(L) 35.0 - 47.0 % LAB HEMETOLOGY METHOD 04/30/2024 2:[address] [facility] MCV 101.5(H) 79.0 - 98.0 FL LAB HEMETOLOGY METHOD 04/30/2024 2:51 PM [facility] MCH 31.3 27.0 - 32.0 pcg LAB HEMETOLOGY METHOD 04/30/2024 2:51 PM [facility] MCHC 30.8(L) 32.0 - 37.0 g/dL LAB HEMETOLOGY METHOD 04/30/2024 2:51 PM [facility] RDW 17.1(H) 11.0 - 15.0 % LAB HEMETOLOGY METHOD 04/30/2024 2:51 PM [facility] Platelets 391 130 - 400 K/mcL LAB HEMETOLOGY METHOD 04/30/2024 2:[address] [facility] MPV 10.8 7.0 - 11.0 FL LAB HEMETOLOGY METHOD 04/30/2024 2:[address] [facility] NRBC 0.5 <1.0 % LAB HEMETOLOGY METHOD 04/30/2024 2:51 PM [facility] NRBC Absolute 0.03 <0.10 K/mcL LAB HEMETOLOGY METHOD 04/30/2024 2:51 PM [facility] Blood Venous blood specimen / Unknown Venipuncture / Unknown 04/30/2024 6:31 AM EST 04/30/2024 1:53 PM EST Torrey Kwok MD LAB BLOOD ORDERABLES [facility] [address] [place] [address], documented in this encounter Visit Diagnoses Diagnosis Type 2 diabetes mellitus without complications (CMS/HCC) documented in this encounter Care Teams Veneer Taper Relationship Specialty Start Date End Date Torrey Kwok MD [address] [place] [address] [address] [place] [address] PCP - General Geriatric Medicine 04/25/24 documented as of this encounter
--- OUTSIDE RECORDS SUMMARY | 2024-05-06 13:45 | XMS_ITS | Patient Health Record ---
[facility] Address [address] [place] [address] Care Team Providers Care Associate Publisher Name Role Phone Monique White Primary Care Provider Arturo Brown Unavailable [phone] Antonio Lewis Unavailable [phone] Allergies Allergen (clinical drug ingredient) Drug/Non Drug Allergy documented on EMR Reaction Allergy Type Onset Date Status codeine Codeine rapid heart beat Drug Allergy Active Results Component Value Reference Range Notes HEMOGLOBIN A1C (GLYCOHEMOGLO BIN) Reviewed date:06/28/2023 01:36:41 PM Interpretation: Performing Lab: Notes/Report: HEMOGLOBIN A1C % (HH) 9 Reason For Referral No Information Medications Medication SIG (Take, Route, Frequency, Duration) Notes Start Date End Date Status Amiodarone HCl 200 MG 1 tablet Orally On ce a day Active Simvastatin Active Extra Depth Orthopedic Shoes (1 Pair) with Customized Heat Molded Multidensity Innersoles (3 Pair) as directed Dx: 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), Hammertoe Foot Deformity (M20.41,M20.42), Preulcerative Skin Lesion(s) (L85.1) Active Xarelto Active HumaLOG Not-Taking Metoprolol Tartrate 100 MG 1 tablet Oral ly Once a day for 30 day(s) Active Cytomel Active Losartan Potassium N ot-Taking Furosemide Active Crestor 2.5 MG 1 tablet Orally Once a day for 30 day(s) Not-Taking Toujeo Max SoloStar 300 UNIT/ML as directed Subcutaneous Active Cozaar Not-Taking Succimer Active hydroCHLOROthiazide Not-Taking amLODIPine Besylate Not-Taking Immunizations Vaccine Route Administration Date Status Comme nts COVID-19 Pfizer BioNTech Vaccine Unknown 02/15/2021 Administered 1st 05/24/2020 2nd 06/15/2020 Influenza Unknown 02/23/2015 Administered Influenza Unknown 01/09/2017 Administered not complete d this year Influenza Unknown 01/07/2018 Administered Influenza Unknown 01/28/2019 Administered Influenza Unknown 01/31/2022 Administered Influenza Unknown 01/07/2023 Administered Social History Tobacco Use: Social History Observation Description Date Details (start date - stop date) Never Smoker NA - NA Alcohol Screen Question Answer Notes Did you have a drink containing alcohol in the p ast year? No Points 0 Interpretation Negative Tobacco use other than smoking: Question Answer Notes Are you an other tobacco user? No Tobacco Control (Standard) Question Answer Notes Tobacco use: Nonsmoker Additional Findings: Tobacco non-user Current no nsmoker Problems Problem Type SNOMED Code ICD Code Onset Dates Problem Status W/U Status Risk Notes Problem Acquired hammer toe of right foot (8964118939444715 ) Other hammer toe(s) (acquired), right foot (M20.41) Active confirmed Problem Acquired hammer toe of left foot (0270936219801000 ) Other hammer toe(s) (acquired), left foot (M20.42) Active confirmed Problem Polyneuropathy due to diabetes mellitus type I (092812857) Type 1 diabetes mellitus with diabetic polyneuropathy (E10.42) Active confirmed Vital Signs Blood pressure diastolic 84 mm Hg 12/04/2023 Height 4 ft 10 in in 02/05/2024 Blood pressure systolic 128 mm Hg 12/04/2023 Weight 129 lbs 02/05/2024 BMI 26.96 kg/m2 02/05/2024 Procedures Procedure Date Ordered Date Performed Result Body Sit e 99007-GGIMJAY NAIL, 6 OR MORE 05/22/2023 N/A 57310-JMUW SKIN LESIONS, 2 TO 4 05/22/2023 N/A 36677-Xvwjronys, Toes 06/28/2023 N/A 63057-WLEDHBW NAIL, 6 OR MORE 09/21/2023 N/A 51284-Pjersken Plate 09/21/2023 N/A 97747-NJOL SKIN LESIONS, 2 TO 4 09/21/2023 N/A 81346-DIWQFOI NAIL, 6 OR MORE 12/04/2023 N/A 31213-MBVR SKIN LESIONS, 2 TO 4 12/04/2023 N/A 18209-KTQPFMO NAIL, 6 OR MORE 02/05/2024 N/A 57009-DQCZ SKIN LESIONS, 2 TO 4 02/05/2024 N/A Encounters Encounter Location Date Provider Diagnosis [address] [address] 05/22/2023 Arturo Alfred Type 1 diabetes mellitus with diabetic polyneuropathy E10.42 and Tinea unguium B35.[address] [address] 06/28/2023 Antonio Lewis Type 1 diabetes mellitus with diabetic polyneuropathy E10.42 ; Closed fracture of right foot, initial encounter S92.901A ; Pain in right foot M79.671 and Closed nondisplaced fracture of middle phalanx of lesser toe of right foot, initial encounter S92.524A [address] [address] 09/21/2023 Arturodeshawn Simon Type 1 diabetes mellitus with diabetic polyneuropathy E10.42 ; Tinea unguium B35.1 and Ingrown nail L60.[address] [address] 12/04/2023 Arturodeshawn KinseyAlfred Type 1 diabetes mellitus with diabetic polyneuropathy E10.42 and Tinea unguium B35.[address] [address] 02/05/2024 Arturo Alfred Type 1 diabetes mellitus with diabetic polyneuropathy E10.42 ; Onychomycosis B35.1 ; Other hammer toe(s) (acquired), right foot M20.41 and Other hammer toe(s) (acquired), left foot M20.[address] [address] 05/21/[address] [address] 08/01/2023 Arturo Alfred [address] [address] 05/05/2024 Arturo Simon Assessments Encounter Date Diagnosis (ICD Code) Assessment Notes Treatment Notes Treatment Clinical Notes Section Notes 05/22/2023 Type 1 diabetes mellitus with diabetic polyneuropathy (ICD-10 - E10.42) 05/22/2023 Tinea unguium (ICD-10 - B35.1) 06/28/2023 Type 1 diabetes mellitus with diabetic polyneuropathy (ICD-10 - E10.42) 06/28/2023 Closed fracture of right foot, initial encounter (ICD-10 - S92.901A) 09/21/2023 Type 1 diabetes mellitus with diabetic polyneuropathy (ICD-10 - E10.42) 09/21/2023 Tinea unguium (ICD-10 - B35.1) 12/04/2023 Type 1 diabetes mellitus with diabetic polyneuropathy (ICD-10 - E10.42) 12/04/2023 Tinea unguium (ICD-10 - B35.1) 02/05/2024 Type 1 diabetes mellitus with diabetic polyneuropathy (ICD-10 - E10.42) 02/05/2024 Onychomycosis (ICD-10 - B35.1) 02/05/2024 Other hammer toe(s) (acquired), right foot (ICD-10 - M20.41) Patient Educated with: DIABETIC FOOT CARE INSTRUCTIONS. pdf (DIABETIC FOOT CARE INSTRUCTIONS. pdf) 09/21/2023 Ingrown nail (ICD-10 - L60.0) 06/28/2023 Pain in right foot (ICD-10 - M79.671) 06/28/2023 Closed nondisplaced fracture of middle phalanx of lesser toe of right foot, initial encounter (ICD-10 - S92.524A) 02/05/2024 Other hammer toe(s) (acquired), left foot (ICD-10 - M20.42) Plan Of Treatment Pending Test Test Name Order Date Hemoglobin A1c 06/23/2014 Hemoglobin A1c 01/05/2015 Glucose Fasting 06/23/2014 X ray : Foot, right 3V 06/28/2023 96315-WTDGVUM NAIL, 6 OR MORE 05/22/2023 02551-NUOEWZS NAIL, 6 OR MORE 12/12/2022 58432-JOBJAEL NAIL, 6 OR MORE 03/06/2023 27993-ZZYAPOP NAIL, 6 OR MORE 01/10/2022 76643-GQSTPFS NAIL, 6 OR MORE 04/18/2022 07417-HKMPXIG NAIL, 6 OR MORE 07/11/2022 77576-AZIBCAC NAIL, 6 OR MORE 10/03/2022 95676-ODNJPIP NAIL, 6 OR MORE 09/21/2023 10279-KGGYECH NAIL, 6 OR MORE 12/04/2023 48161-WUPFQAP NAIL, 6 OR MORE 02/05/2024 73719-ZHSURFP NAIL, 6 OR MORE 07/10/2017 57819-DGFQWRF NAIL, 6 OR MORE 10/09/2017 77142-IBRAWUB NAIL, 6 OR MORE 01/08/2018 31670-ILBKIGC NAIL, 6 OR MORE 04/30/2018 05020-PGGLXRD NAIL, 6 OR MORE 07/30/2018 63789-QIQLOWC NAIL, 6 OR MORE 10/29/2018 92768-YBGSLQS NAIL, 6 OR MORE 02/04/2019 86584-SLYOJLS NAIL, 6 OR MORE 05/13/2019 36222-HMTMDFJ NAIL, 6 OR MORE 08/12/2019 74172-HMBGBQZ NAIL, 6 OR MORE 11/11/2019 24954-DWYSAPE NAIL, 6 OR MORE 02/17/2020 61488-FCVZIMG NAIL, 6 OR MORE 05/25/2020 82260-VAGZEJB NAIL, 6 OR MORE 08/24/2020 68664-ZRCHXDW NAIL, 6 OR MORE 11/23/2020 39128-OEPDWDC NAIL, 6 OR MORE 02/22/2021 41590-WMNFPYN NAIL, 6 OR MORE 05/24/2021 39945-BSRGQJP NAIL, 6 OR MORE 10/11/2021 16481-BTDWGSU NAIL, 6 OR MORE 10/06/2014 28946-NGYNNCN NAIL, 6 OR MORE 06/10/2013 86395-JYHKOEW NAIL, 6 OR MORE 03/17/2014 06563-SOHENNH NAIL, 6 OR MORE 06/23/2014 59149-HQGUTZY NAIL, 6 OR MORE 01/05/2015 88984-ESHFDZA NAIL, 6 OR MORE 04/20/2015 66720-HWTQHRD NAIL, 6 OR MORE 07/20/2015 68856-ZBRBJXG NAIL, 6 OR MORE 10/26/2015 50082-GHJRQXZ NAIL, 6 OR MORE 01/25/2016 60797-ZAJHTRT NAIL, 6 OR MORE 05/23/2016 56011-RBMCCTK NAIL, 6 OR MORE 08/25/2016 07771-HCRHLUS NAIL, 6 OR MORE 12/05/2016 26514-QEABNAO NAIL, 6 OR MORE 03/06/2017 60098-VUQOHVB NAIL, 6 OR MORE 12/27/2010 58104-HTTREVL NAIL, 6 OR MORE 03/21/2011 27661-ZHJPAUO NAIL, 6 OR MORE 06/13/2011 72322-PHNNOSK NAIL, 6 OR MORE 09/12/2011 63113-ONQELWM NAIL, 6 OR MORE 12/19/2011 01924-FJCAWSU NAIL, 6 OR MORE 03/05/2012 98637-LEYIMWV NAIL, 6 OR MORE 05/31/2012 40367-BMONMKE NAIL, 6 OR MORE 08/27/2012 21832-QIUJAHO NAIL, 6 OR MORE 12/10/2012 66729-EDGICPG NAIL, 6 OR MORE 03/11/2013 32645-JFUDNQZ NAIL, 6 OR MORE 09/16/2013 92911-PVOBTCD NAIL, 6 OR MORE 01/06/2014 90477-Vnwjkgkq Plate 01/06/2014 43396-Qolxkizi Plate 09/16/2013 92641-Oenfxyjz Plate 05/31/2012 25547-Ychsmtii Plate 06/13/2011 81424-Yevwsujp Plate 03/21/2011 34985-Lzoiszey Plate 12/05/2016 02252-Hyunrheo Plate 07/10/2017 20150-Ldavmmeb Plate 07/20/2015 26316-Zpttqpmp Plate 01/05/2015 24208-Vaycerut Plate 08/27/2012 21816-Igzhnnuj Plate 03/17/2014 20600-Ahemgezk Plate 10/06/2014 84291-Kuulmkxt Plate 09/21/2023 72480-Rkubqfga Plate Each Additional 83227-Qgakslhl Plate Each Additional 01/2014 13215-Egkqiuwf Plate Each Additional 32075 I&D ABSCESS- SIMPLE,SINGLE 012 70360 I&D ABSCESS- SIMPLE,SINGLE 011 97958 I&D ABSCESS- SIMPLE,SINGLE 021 50264-YSLV SKIN LESIONS, 2 TO 4 09/21/19 21679-BSLK SKIN LESIONS, 2 TO 4 02/05/20 39083-DIAD SKIN LESIONS, 2 TO 4 12/04/19 35064-MLBG SKIN LESIONS, 2 TO 4 10/04/19 04104-CLGZ SKIN LESIONS, 2 TO 4 07/12/19 70482-NVHY SKIN LESIONS, 2 TO 4 04/18/19 28587-HIVO SKIN LESIONS, 2 TO 4 01/11/20 91049-UPRH SKIN LESIONS, 2 TO 4 03/06/20 11212-YBUY SKIN LESIONS, 2 TO 4 12/13/19 43666-IHNZ SKIN LESIONS, 2 TO 4 05/22/19 33485-ASKU SKIN LESIONS, 2 TO 4 10/12/19 89486-RYWZ SKIN LESIONS, 2 TO 4 05/24/19 41067-JXLP SKIN LESIONS, 2 TO 4 02/23/20 15372-IAFI SKIN LESIONS, 2 TO 4 11/24/19 64039-OARZ SKIN LESIONS, 2 TO 4 08/25/19 53652-PDYO SKIN LESIONS, 2 TO 4 05/25/19 64042-RCMU SKIN LESIONS, 2 TO 4 02/17/20 66777-ONOV SKIN LESIONS, 2 TO 4 11/11/19 37640-KOXG SKIN LESIONS, 2 TO 4 08/12/19 17263-IXIJ SKIN LESIONS, 2 TO 4 05/13/19 47877-ZMQT SKIN LESIONS, 2 TO 4 02/05/20 67558-XPDW SKIN LESIONS, 2 TO 4 10/30/19 39604-IXBV SKIN LESIONS, 2 TO 4 07/31/19 67241-PSIJ SKIN LESIONS, 2 TO 4 04/30/19 15184-OPIQ SKIN LESIONS, 2 TO 4 01/09/20 80882-NHFF SKIN LESIONS, 2 TO 4 10/10/19 16783-FKZM SKIN LESIONS, 2 TO 4 05/31/19 13 04211-HVIG SKIN LESIONS, 2 TO 4 03/05/20 12 95743-PLHM SKIN LESIONS, 2 TO 4 12/19/19 46791-NUTN SKIN LESIONS, 2 TO 4 08/28/19 13 08933-BQYX SKIN LESIONS, 2 TO 4 03/11/20 13 57322-FHMM SKIN LESIONS, 2 TO 4 12/11/19 13 12799-FAXG SKIN LESIONS, 2 TO 4 01/07/20 14 69931-ZUOS SKIN LESIONS, 2 TO 4 09/17/19 14 14602-IIMM SKIN LESIONS, 2 TO 4 04/20/19 16 99058-CPHZ SKIN LESIONS, 2 TO 4 01/06/20 15 73161-LSMO SKIN LESIONS, 2 TO 4 06/24/19 15 78927-UVNR SKIN LESIONS, 2 TO 4 10/07/19 15 44199-RWOY SKIN LESIONS, 2 TO 4 03/17/20 14 73006-EKMP SKIN LESIONS, 2 TO 4 06/11/19 14 64035-FACA SKIN LESIONS, 2 TO 4 07/20/19 16 02031-SJJB SKIN LESIONS, 2 TO 4 10/26/19 16 79230-TYRW SKIN LESIONS, 2 TO 4 05/23/19 17 18114-HHIS SKIN LESIONS, 2 TO 4 08/26/19 17 69169-UJJX SKIN LESIONS, 2 TO 4 01/25/20 16 58110-RXZL SKIN LESIONS, 2 TO 4 07/11/19 18 93893-ICHV SKIN LESIONS, 2 TO 4 03/06/20 17 18478-TTRJ SKIN LESIONS, 2 TO 4 12/06/19 17 10723-GIHV SKIN LESION 09/12/2011 02999-SZOP SKIN LESION 03/21/2011 01684-ZNMR SKIN LESION 06/13/2011 05315-Xbxipzplk, Toes 06/28/2023 Next Appt Details Provider Name:Arturo Simon , 08/08/2024 10:00:00 AM, [address] [place] [address], [phone], Insurance Providers Payer Name Payer Address Payer Phone Subscriber Number Group Number Insured Name Patient Relationship to Insured Coverage Start Date Coverage End Date Medicare National [facility] [address] [place] [address] [phone] [id number] Greri Sanchez Self - patient is the insured 2 [employer] [address] [place] [address] [id number] Gerri Sanchez Self - patient is the insured Medical (General) History Medical History History ICD Code Cholesterol transfusions joint implants/screws osteoporosis measles high blood pressure diverticulitis chicken pox cataracts back, hip, knee pain Arthritis sciatica endoscopy 10/2018 type I diabetes Urinary tract infection Surgical History Surgery Date(Month/Year) left hip replacement 2007 right knee replacement 2010 MRI R knee 05/2020 cardioversion 05/2021 Hospitalization History Reason Date(Month/Year) [facility] U[facility] 11/16/23 [facility] 6 [facility] cath put in 04/2015
--- OUTSIDE RECORDS SUMMARY | 2024-05-06 13:45 | XMS_ITS ---
Author Organization [facility] Address [address] [place] [phone] Care Team Providers Care Assistant Associate Full Professor Name Role Phone Monique White MD Primary Care Provider Yane Epps Jr, John Mckeon REASON FOR VISIT refill omeprazole MEDICATIONS Medication SIG (Take, Route, Frequency, Duration) Notes Start Date End Date Status Omeprazole 20 TAKE 1 CAPSULE BY MO UT TWICE DAILY for 90 days Active Encounters Encounter Location Date Provider Diagnosis [facility] [address] [place] [phone] 07/09/2023 John Epps Jr PLAN OF TREATMENT Medication Medication Name Sig Start Date Stop Date Notes Omeprazole 20 TAKE 1 CAPSULE BY MO UT TWICE DAILY for 90 days
--- OUTSIDE RECORDS SUMMARY | 2024-05-06 13:45 | XMS_ITS ---
Author Organization [facility] Address [address] [facility] [place] [address] Care Team Providers Care Counter Top Assembler Name Role Phone Monique White Primary Care Provider Arturo Brown Unavailable [phone] Allergies Allergen (clinical drug ingredient) Drug/Non Drug Allergy documented on EMR Reaction Allergy Type Onset Date Status codeine Codeine rapid heart beat Drug Allergy Active REASON FOR VISIT At Risk Footcare, Toe Irritation Medications Medication SIG (Take, Route, Frequency, Duration) Notes Start Date End Date Status Losartan Potassium N ot-Taking Crestor 2.5 MG 1 tablet Orally Once a day for 30 day(s) Not-Taking Cozaar Not-Taking hydroCHLOROthiazide Not-Taking amLODIPine Besylate Not-Taking HumaLOG Not-Taking Metoprolol Tartrate 100 MG 1 tablet Oral ly Once a day for 30 day(s) Active Amiodarone HCl 200 MG 1 tablet Orally On ce a day Active Simvastatin Active Xarelto Active Cytomel Active Furosemide Active Toujeo Max SoloStar 300 UNIT/ML as directed Subcutaneous Active Succimer Active Extra Depth Orthopedic Shoes (1 Pair) with Customized Heat Molded Multidensity Innersoles (3 Pair) as directed Dx: 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), Hammertoe Foot Deformity (M20.41,M20.42), Preulcerative Skin Lesion(s) (L85.1) Active Social History Tobacco Use: Social History Observation [...] Additional Findings: Tobacco non-user Current no nsmoker Vital Signs Height 4 ft 10 in in 02/05/2024 Weight 129 lbs 02/05/2024 BMI 26.96 kg/m2 02/05/2024 Procedures Procedure Date Ordered Date Performed Result Body Sit e 93038-DSVDODC NAIL, 6 OR MORE 02/05/2024 N/A 21551-EWTW SKIN LESIONS, 2 TO 4 02/05/2024 N/A Encounters Encounter Location Date Provider Diagnosis [facility] [address] [place] [address] 02/05/2024 Arturo Simon Type 1 diabetes mellitus with diabetic polyneuropathy E10.42 ; Onychomycosis B35.1 ; Other hammer toe(s) (acquired), right foot M20.41 and Other hammer toe(s) (acquired), left foot M20.42 Assessments Encounter Date Diagnosis (ICD Code) Assessment Notes Treatment Notes Treatment Clinical Notes Section Notes 02/05/2024 Type 1 diabetes mellitus with diabetic polyneuropathy (ICD-10 - E10.42) 02/05/2024 Onychomycosis (ICD-10 - B35.1) 02/05/2024 Other hammer toe(s) (acquired), right foot (ICD-10 - M20.41) Patient Educated with: DIABETIC FOOT CARE INSTRUCTIONS. pdf (DIABETIC FOOT CARE INSTRUCTIONS. pdf) 02/05/2024 Other hammer toe(s) (acquired), left foot (ICD-10 - M20.42) Plan Of Treatment Medication Medication Name Sig Start Date Stop Date Notes Extra Depth Orthopedic Shoes (1 Pair) with Customized Heat Molded Multidensity Innersoles (3 Pair) as directed Dx: 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), Hammertoe Foot Deformity (M20.41,M20.42), Preulcerative Skin Lesion(s) (L85.1) Treatment Notes Assessment Notes Other hammer toe(s) (acquired), right fo ot Patient Educated with: DIABETIC FOOT CARE INSTRUCTIONS.pdf (DIABETIC FOOT CARE INSTRUCTIONS.pdf) Pending Test Test Name Order Date 53934-UGVNAJD NAIL, 6 OR MORE 02/05/2024 27834-BSRY SKIN LESIONS, 2 TO 4 02/05/20 24 Next Appt Details Follow Up: prn, Reason: Provider Name:Arturo Simon , 08/08/2024 10:00:00 AM, [address] [place], [address], Procedure Notes * Category Sub-Category Detail Notes Debride Nail 6-10 Nail debridement Performance o f this nail treatment by a nonprofessional would put this patients foot and overall health at risk. Therefore, nail debridement was performed extensively to reduce/remove overall nail length, girth, thickness, subungual debris, and necrotic tissue, by manual and/or electrical means through the use of a nail nipper and/or dremel-type tool grinder, to a more viable healthy nail plate or bed tissue 6-10. Silver nitrate used for any petechial bleeding as necessary. Definitive antifungal treatment options have been reviewed and discussed with the patient. The patient chooses, no pharmaceutical tx - 98005 Keratoma Treatment Parring or Cutting o f Benign Hyperkeratotic Lesion(s) (-56) 2-4 Lesions - The Benign hyperkeratotic lesions, as described above were pared, and/or cut utilizing a sterile 15 blade, tissue nippers, and/or dremel - 67182 Progress Notes * Gerri SCHWARTZ RDOB:[birth year] (88 yo F)Acc No.[id number]:02/05/2024 Progress Note Patient:?Gerri SCHWARTZ R Provider:?Arturo Simon DPM :1935???Age:88 Y???Sex:Female D ate:02/05/2024 Address: [address] [id number] Pcp:Monique White Subjective: * Chief Complaints: * ???At Risk FootcareToe Irrit ation * HPI: ???At Risk footcare:?Pt States Last PCP Visit:?Date?11/19/2023 ???Toe pain:?Location:?B/L feet.?Duration:?several years.?Course:?worse.?Aggravated by:?shoes, any pressure.?Treatments:?change in shoes.? * ROS:?General/Constitutional:?Nausea?denies.?Vomiting?denies.?Hunger Thirst?denies.?Loss appetite?denies.?Chills?denies.?Fatigue?denies.?Fever?denies.?Night Sweats?denies.?Unexplained weight loss?denies.?Ophthalmologic:?Blurred vision?denies.?Red eye?denies.?HEENTM:?Dentures?denies.?Dizziness?denies.?Glasses/contacts?admits.?Retinopathy?den ies.?Blurred/double vision?denies.?TMJ?denies.?Discharge/drainage?denies.?Implants?denies.?Hard of hearing denies.?Difficulty chewing/swallowing/speaking?denies.?Nose bleeds?denies.?Sore mouth?denies.?Swollen glands?denies.?Respiratory:?On O xygen?denies.?Pneumonia/pleurisy?denies.?Bronchitis?denies.?Emphysema?denies.?Co ughing?denies.?Cough blood?denies.?Shortness of breath?denies.?Wheezing?denies.?Cardiovascular:?Pacemaker?denies.?MVP?denies.?WPW?denies.?CHF?denies.?Heart attack?denies.?Septal defect?denies.?Rapid beat?denies.?Chest pain ?denies.?Atrial Fib.?denies.?Murmur/Palpitations?denies.?Gastrointestinal:?Hemorrhoids?denies.?Stomach/Abdominal pain?denies.?Dark blood stool?denies.?Irritable bowel ?denies.?Constipation?denies.?Diarrhea?denies.?Vomiting?denies.?Hematology:?Swelling?admits.?Bruising??admits, on anticoagulants.?Bleeding problem?admits, on anticoagulants.?Genitourinary:?Blood urine?denies.?Frequent/Painfu/urination/bladder control?denies.?Kidney stones?denies.?Infection (UTI)?denies.?Nephropathy?denies.?Musculoskeletal:?Hammertoes?admits.?Bunions?admits.?Scoliosis/kyphosis?denies.?Muscle cramps / walking?denies.?Generalized aches and pains?denies.?Weakness?denies.?Integ.:?Saeed?denies.?Scars?denies.?Corns/calluses?admits.?Ingrown nails?admits.?Painful nails?denies.?Rashes?denies.?Neurologic:?Difficulty sleeping?denies.?Bipolar?denies.?Brain disorder?denies.?Balance t rouble?denies.?Confusion?denies.?Fainting/blackouts?denies.?Headache?denies.?Amrit mors?denies.? * Medical History:? * Surgical History:?left hip r eplacement 2008right knee replacement 2010MRI R knee ardioversion 05/2021 * Hospitalization/Major Diagno stic Procedure:?[facility] [place] [place] [place] 11/16/23 * Family History:?Mother: dece ased, diagnosed with Unspecified heart disease.?Father: .?1 son(s) , 1 daughter(s) . .? * Social History:?Tobacco Use:?Tobacco use other than smoking?Are you an other tobacco user??No ?Tobacco Control (Standard)?Tobacco use:?Nonsmoker ?Additional Findings: Tobacco non-user?Current nonsmoker ???Drugs/Alcohol:?Drugs?Have you used drugs other than those for medical reasons in the past 12 months??No ?Alcohol Screen?Did you have a drink containing alcohol in the past year??No ?Points?0 ?Interpretation?Negative ???Miscellaneous:?Caffeine: yes, frequency:, 1-2 cups per day. ?Children: yes. ?Exercise: yes, Stationary bike. ?Marital status: . ?Occupation: Retired -, [employer]. * Medications:?TakingToujeo Ma x SoloStar 300 UNIT/ML Solution Pen-injector as directed Subcutaneous Succimer Cytomel Furosemide Metoprolol Tartrate 100 MG Tablet 1 tablet Orally Once a day Simvastatin Xarelto Extra Depth Orthopedic Shoes (1 Pair) with Customized Heat Molded Multidensity Innersoles (3 Pair) as directed Dx: 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), Hammertoe Foot Deformity (M20.41,M20.42), Preulcerative Skin Lesion(s) (L85.1) Amiodarone HCl 200 MG Tablet 1 tablet Orally Once a day Taking Toujeo Max SoloStar 300 UNIT/ML Solution Pen-injector as directed Subcutaneous Taking Succimer Taking Cytomel Taking Furosemide Taking Metoprolol Tartrate 100 MG Tablet 1 tablet Orally Once a day Taking Simvastatin Taking Xarelto Taking Extra Depth Orthopedic Shoes (1 Pair) with Customized Heat Molded Multidensity Innersoles (3 Pair) as directed Dx: 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), Hammertoe Foot Deformity (M20.41,M20.42), Preulcerative Skin Lesion(s) (L85.1) Taking Amiodarone HCl 200 MG Tablet 1 tablet Orally Once a day Not-Taking/PRNHumaLOG amLODIPine Besylate Cozaar hydroCHLOROthiazide Losartan Potassium Crestor 2.5 MG Tablet 1 tablet Orally Once a day Medication List reviewed and reconciled with the patientNot-Taking/PRN HumaLOG Not-Taking/PRN amLODIPine Besylate Not-Taking/PRN Cozaar Not-Taking/PRN hydroCHLOROthiazide Not-Taking/PRN Losartan Potassium Not-Taking/PRN Crestor 2.5 MG Tablet 1 tablet Orally Once a day Medication List reviewed and reconciled with the patient * Allergies:?Codeine: rapid joseline cespedes chinokatlin[Allergies Verified] Objective: * Vitals:?Ht: 4 ft 10 in, Wt: 129, BMI: 26.96, Shoe size: 8-8.5, BS: 177, Wt-k.51 kg. * ???Past Orders: ???Lab:HEMOGLOBIN A1C (GLYCO HEMOGLOBIN) (Order Date - 06/28/2023) (Collection Date & Time - 06/28/2023 01:36 PM) ? Value Reference Range ?HEMOGLOBIN A1C % (HH) 9 * Examination: ???Ophthalmology Referral: ?DIABETES EYE EXAM?Neurological: ?SENSORY:?Neurological exam demonstrates, reduced light touch sensation, reduced sharp/dull discrimination , plantar aspects, B/L, 5.07 monofilament test performed at plantar aspects of 5 varied sites per foot shows sensation, reduced, B/L, Pt still relates, paresthesia, tingling, Forefoot, Right.?Nails: ?NAILS are:?Elongated, overgrown, dystrophic, lytic, greater than 3mm thick, discolored and friable with crumbly malodorous subungual debris, with pain on palpation, TA, T1, T2, T5, T6, T7, T8, T9.?Dermatologic: ?SKIN FINDINGS:?Skin exam reveals Keratotic lesion(s) located at , Heel , B/L.?Orthopedic: ?MUSCLE STRENGTH:?5/5 all groups in a symmetrical fashion , B/L.?FOOT MORPHOLOGY:? No Charcot collapse/destruction noted at MTJ.?DIGITAL DEFORMITIES:?Digital contracture, PIPJ, 2-5 B/L, incompl-reducible to push-up test, no over, nor underlapping , with evidence of shoe producing skin irritation.?FOOTWEAR:?worn, OT were inspected and noted to be severely worn , in poor condition not giving proper support at the present time , shoe gear properties exacerbate patients foot/toe deformity.?Vascular: ?DP PULSES (B):?04/12, B/L.?PT PULSES (B):?04/12, B/L.?CAPILLARY FILL TIME:?delayed, all digits, B/L.?TROPHIC CONDITION-TEXTURE/ELASTICITY/TURGOR/HAIR GROWTH (B):?decreased, fragile, thin, shiny skin, with sparse to absent hair growth, B/L.?TEMPERTURE GRADIENT (C):?decreased, cool to cool, proximal to distal, B/L.?PIGMENTATION:?mottled, B/L.?EDEMA (C):?absent, B/L.?CLAUDICATION (C):?denies, B/L.?REST PAIN:?denies, B/L.?General Examination: ?GENERAL APPEARANCE:?Reveals a pleasant, alert, well nourished, well- developed, well hydrated individual, who demonstrates proper attention to hygiene/body habitus, and is in no acute distress, Pt serves as own historian for office visit today , Pt accompanied by , Daughter.?ORIENTED:?person, place, and time.?FOOT EXAM:?Footwear Evaluation? Assessment: * Assessment: 1.?Type 1 diabetes mellitus with diabetic polyneuropathy - E10.42???2.?Onychomycosis - B35.1???3.?Other hammer toe(s) (acquired), right foot - M20.41???Specify :Chronic problem, Worse (4),Rx Management (4)???4.?Other hammer toe(s) (acquired), left foot - M20.42???Specify :Chronic problem, Worse (4),Rx Management (4)??? Plan: * Treatment: 2.?Other hammer toe(s) (acqu ired), right foot? Start Extra Depth Orthopedic Shoes (1 Pair) with Customized Heat Molded Multidensity Innersoles (3 Pair), as directed, Dx: 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), Hammertoe Foot Deformity (M20.41,M20.42), Preulcerative Skin Lesion(s) (L85.1), 1, Refills 0.?? Notes: Patient Educated with: DIABETIC FOOT CARE INSTRUCTIONS.pdf (DIABETIC FOOT CARE INSTRUCTIONS.pdf)?? * Procedures:?Debride Nail 6-10:?Nail debridement?Performance of this nail treatment by a nonprofessional would put this patients foot and overall health at risk. Therefore, nail debridement was performed extensively to reduce/remove overall nail length, girth, thickness, subungual debris, and necrotic tissue, by manual and/or electrical means through the use of a nail nipper and/or dremel-type tool grinder, to a more viable healthy nail plate or bed tissue 6-10. Silver nitrate used for any petechial bleeding as necessary. Definitive antifungal treatment options have been reviewed and discussed with the patient. The patient chooses, no pharmaceutical tx - 22048.?Keratoma Treatment:?Parring or Cutting of Benign Hyperkeratotic Lesion(s)?(-56) 2-4 Lesions - The Benign hyperkeratotic lesions, as described above were pared, and/or cut utilizing a sterile 15 blade, tissue nippers, and/or dremel - 26047.? * Procedure Codes:?85802 DEBRI DE NAIL, 6 OR MORE, Modifiers: XS 86778 TRIM SKIN LESIONS, 2 TO 4, Modifiers: XS * Preventive Medicine:? ??Counseling:?Discussion:?-14: Office or other outpatient visit for the evaluation and management of an established patient, which required a medically appropriate history and/or examination and MODERATE level of DECISION MAKING for: 1 OR MORE CHRONIC PROBLEM(S) THATS WORSENING, 2 STABLE CHRONIC PROBLEMS, A NEWLY DIAGNOSED PROBLEM WITH UNCERTAIN PROGNOSIS, AN ACUTE COMPLICATED INJURY WITH MULTIPLE TREATMENT OPTIONS, OR AN ACUTE PROBLEM WITH ACCOMPANYING SYSTEMIC SYMPTOMS, THAT POSE(S) A MODERATE RISK OF MORBIDITY. THIS CONDITION MAY ALSO INCLUDE RX DRUG MANAGEMENT, OR A DECISON FOR MINOR SURGERY. The visit on the day of the encounter encompassed interpreting the data and educating the patient as to the nature of their condition, treatment options available according to their individual PMH, meds, allergies, and overall health/living conditions, as well as any potential risks or complications that may occur from a failure to adhere to, and participate in, the recommended course of therapy. The discussion included a complete verbal, and/or written explanation of the examination results, any x-rays taken, the proposed diagnosis, and outline of the treatment plan. A schedule for future care needs was also explained. The patient verbalized an understanding of the instructions at this time and agreed to be an active participant in their treatment. If the patient should think of any questions or concerns after the visit, I have encouraged the patient to call the office.?Digital Surgery:?Digital surgery was discussed with the patient, We elected to try conservative treatment at the present time, due to the patients diabetic medical history and post-operative risks.?Digital Treatment:?HT- I explained to the patient the possible etiologies of Hammertoes, including genetics/foot type/shoegear/activity level/exercise routine and the risks/benefits of all the different treatment options for their pain including: No treatment at all, Rest, Ice, New/supportive/wider/deeper Shoegear, Digital Padding/Strapping/Taping/Bracing/Gel protective sleeves, Foot/Ankle AFO Bracing, Stretching exercises, Deep Tissue Massage, Arch support/shoe inserts with splay metatarsal padding, and Custom orthoses. I insisted that any digital devices be removed daily and not worn overnight for safety. The patient is to carefully examine the toes daily for any skin irritation while using any splinting or padding device. The advantages and disadvantages of each option were discussed and the patients questions re: shoegear, padding, custom vs prefabricated inserts, activity level, and consistency in home treatment regimens for optimal success were answered to their verbally confirmed satisfaction.?Shoe Gear Counseling:?SHOE Rx - The patient was counseled in great detail on their muscoloskeletal foot and toe deformities which coincided with the dermatological presentations visualized on exam. We discussed how their deformities put the integrity of their feet at risk for potential pedal complications which makes the accomidative diabetic shoes and cutomizable inserts medically necessary. We discussed the different shoe and insert treatment types and options, as well as the important advantages for adhering to regularly wearing these accomidative devices daily. The patient was made aware of the fact that a failure to abide by these recommedations may be deleterious to their foot health as they are able to prevent many pedal complications such as skin irritation, skin ulceration, infection, and even loss of toe/foot/leg/or life. Time was also spent with the patient dispensing and discussing proper diabetic footcare techniques including daily skin moisturization, daily foot inspection for any interruption in skin integrity including open lesions, or sign of infection such as redness/malodor/drainage/swelling. Also discussed and recommended were procedures regarding daily shoe inspection for the presence of internal foreign bodies as well as any visualized irregular shoe or insert wear. Patient questions re: shoes, inserts, and self foot inspections were answered to their satisfaction as the patient verbally confirmed a full understanding of the above information. A Rx for Extra Depth Orthopedic Shoes with 3 pair of custom heat-molded inserts was dispensed.? ??Screening/Special Tests:?Fall Risk?Screening:?No falls in the past year ?FALLS: Screening for Future Fall Risk?Have you had two or more falls in the past year??No ?Have you had any falls with injury in the past year??No * Follow Up:?prn * Images: * Sign off status: Completed true * Provider:?Arturo Simon DPM Date:?2023 Generated for Awilda diggs/Lee/eTransmitting on:?05/06/2024 01:45 PM EST History and Physical Notes * HPI (History of Present Illness) Category Sub-Category Detail Notes Category Not es Toe pain Location: B/L feet Duration: several years Course: worse Aggravated by: shoes, any pressure Treatments: change in shoes At Risk footcare Pt States Last PCP Visit: Date: 4 Examination Category Sub-Category Detail Notes Category Not es Neurological SENSORY: Neurological exa m demonstrates, reduced light touch sensation, reduced sharp/dull discrimination , plantar aspects, B/L, 5.07 monofilament test performed at plantar aspects of 5 varied sites per foot shows sensation, reduced, B/L, Pt still relates, paresthesia, tingling, Forefoot, Right Orthopedic FOOT MORPHOLOGY: No Charcot enrrique apse/destruction noted at MTJ FOOTWEAR: worn, OT were inspec amrit and noted to be severely worn , in poor condition not giving proper support at the present time , shoe gear properties exacerbate patients foot/toe deformity DIGITAL DEFORMITIES: Digital contracture , PIPJ, 2-5 B/L, incompl-reducible to push-up test, no over, nor underlapping , with evidence of shoe producing skin irritation MUSCLE STRENGTH: 5/5 all groups in a symmetrical fashion , B/L General Examination GENERAL APPEARANCE: Reveals a pleasant, alert, well nourished, well-developed, well hydrated individual, who demonstrates proper attention to hygiene/body habitus, and is in no acute distress, Pt serves as own historian for office visit today , Pt accompanied by , Daughter FOOT EXAM: Lower Extremity Neurological Exa m performed:: Yes Visual exam of foot performed:: Yes Date: 02/05/2024 ORIENTED: person, place, and t mily Footwear Evaluation Footwear Evaluation performe d:: Yes Ophthalmology Referral DIABETES EYE EXAM Procedure Perform ed:: Yes ?Date of Exam Performed: 05/24/2023 Diabetic Retinopathy Screening:: Yes Retinal Screening Performed:: Yes Findings of Diabetic Eye Exam:: retinopa thy Vascular DP PULSES (B): 1/4, B/L PT PULSES (B): 1/4, B/L CAPILLARY FILL TIME: delayed, all digits , B/L TEMPERTURE GRADIENT (C): decreased, cool to cool, proximal to distal, B/L TROPHIC CONDITION-TEXTURE/ELASTICITY/TURGOR/HAIR GROWTH (B): decreased, fragile, thin, shiny skin, wi th sparse to absent hair growth, B/L EDEMA (C): absent, B/L CLAUDICATION (C): denies, B/L REST PAIN: denies, B/L PIGMENTATION: mottled, B/L Nails NAILS are: Elongated, overg rown, dystrophic, lytic, greater than 3mm thick, discolored and friable with crumbly malodorous subungual debris, with pain on palpation, TA, T1, T2, T5, T6, T7, T8, T9 Dermatologic SKIN FINDINGS: Skin exam reveal s Keratotic lesion(s) located at , Heel , B/L
--- OUTSIDE RECORDS SUMMARY | 2024-05-06 13:45 | XMS_ITS | Encounter Summary ---
Author Organization [facility] Address [address] [place] [address] Care Team Providers Care Mail Handler Sorter Name Role Phone Torrey Kwok MD Primary Care Provider [phone] Encounter Details Date Type Department Care Team (Late st Contact Info) Description 05/05/2024 Lab Requisition [facility] - [facility] Lab [address] [facility] [facility] [place] [address] Torrey Kwok MD [address] [place], [place] [id number] Chronic kidney disease, stage 3 unspecified (CMS/HCC); Type 2 diabetes mellitus with diabetic chronic kidney disease (CMS/HCC) Social History Tobacco Use Types Packs/Day Years Used Date Smoking Tobacco: Never Assessed Sex and Gender Information Value Date Recorded Sex Assigned at Not on file Gender Identity Not on file Sexual Orientation Not on file documented as of this encounter Plan of Treatment Not on file documented as of this encounter Procedures Procedure Name Priority Date/Time Associated Diagnosis Comments BASIC METABOLIC PANEL Routine 05/05/2024 5:43 AM EST Chronic kidney disease, stage 3 unspecified (CMS/HCC) Type 2 diabetes mellitus with diabetic chronic kidney disease (CMS/HCC) documented in this encounter Results * (ABNORMAL) Basic metabolic panel (05/05/2024 5:43 AM EST) Sodium 134 133 - 145 mmol/L LAB CHEMISTRY METHOD 05/05/2024 2:05 PM EST [facility] Potassium 5.0 3.5 - 5.5 mmol/L LAB CHEMISTRY METHOD 05/05/2024 2:05 PM EST [facility] Comment:Hemolysis present Chloride 99 96 - 110 mmol/L LAB CHEMISTRY METHOD 05/05/2024 2:05 PM [facility] CO2 26 21 - 32 mmol/L LAB CHEMISTRY METHOD 05/05/2024 2:05 PM [facility] Anion Gap 9 3 - 11 LAB CHEMISTRY METHOD 05/05/2024 2:05 PM [facility] Glucose 141(H) 70 - 100 mg/dL LAB CHEMISTRY METHOD 05/05/2024 2:05 PM [facility] BUN 23 5 - 25 mg/dL LAB CHEMISTRY METHOD 05/05/2024 2:05 PM [facility] Creatinine 1.08 0.50 - 1.10 mg/dL LAB CHEMISTRY METHOD 05/05/2024 2:05 PM [facility] eGFR 50(L) >=60 mL/min/1. 73m2 LAB CHEMISTRY METHOD 05/05/2024 2:05 PM [facility] Comment:Calculation based on the??Chronic Kidney Disease Epidemiology Collaboration (CKD-EPI) equation refit??without adjustment for race. BUN/Creatinine Ratio 21.3 LAB CHEMISTRY METHOD 05/05/2024 2:05 PM [facility] Calcium 8.3(L) 8.5 - 10.5 mg/dL LAB CHEMISTRY METHOD 05/05/2024 2:05 PM [facility] Blood Venous blood specimen / Unknown Venipuncture / Unknown 05/05/2024 5:43 AM EST 05/05/2024 11:40 AM EST Torrey Kwok MD LAB BLOOD ORDERABLES [facility] [address] [place] [address], documented in this encounter Visit Diagnoses Diagnosis Chronic kidney disease, stage 3 unspecified (CMS/HCC) Type 2 diabetes mellitus with diabetic chronic kidney disease (CMS/HCC) documented in this encounter Care Teams Mail Handler Sorter Relationship Specialty Start Date End Date Torrey Kwok MD [address] [place] [address] [address] [place] [address] PCP - General Geriatric Medicine 04/25/24 documented as of this encounter
--- OUTSIDE RECORDS SUMMARY | 2024-05-06 13:45 | XMS_ITS | Encounter Summary ---
Author Organization [facility] Address [address] [place] [address] Phone Care Team Providers Care Chief Mechanical Engineer Name Role Phone Monique White MD Primary Care Provider [phone] Encounter Details Date Type Department Care Team (Late st Contact Info) Description 06/07/2021 Telephone [facility] [address] [place] [address] Sohail Penaloza MD Social History Tobacco Use Types Packs/Day Years Used Date Smoking Tobacco: Former Cigarettes Q uit: 04/09/1964 Comments:Smoking History Inf o:Every day Alcohol Use Standard Drinks/Week Comments No 0 (1 standard drink = 0.6 oz pur e alcohol) Comments Unknown Sex and Gender Information Value Date Recorded Sex Assigned at Not on file Legal Sex Female 4:47 PM EST Gender Identity Not on file Sexual Orientation Not on file documented as of this encounter Miscellaneous Notes * Telephone Encounter - Dorita Caputo - 06/07/2021 3:37 PM EST Pts dtr called she would like to review her labs from 06/06/21 with you. Please call her back at [phone] Thank you documented in this encounter Plan of Treatment Upcoming Encounters Date Type Department Care Team (Late st Contact Info) Description 05/19/2024 1:00 PM EST Office Visit [facility] [address] [place] [address] Tu Oliva MD [address] [address] documented as of this encounter Visit Diagnoses Not on filedocumented in this encounter Care Teams Chief Mechanical Engineer Relationship Specialty Start Date End Date Monique White MD [facility] [address] [place] PCP - General Internal Medicine 03/11/21 documented as of this encounter
--- OUTSIDE RECORDS SUMMARY | 2024-05-06 13:45 | XMS_ITS | Encounter Summary ---
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); Heart failure, unspecified (CMS/HCC); Essential (primary) hypertension Social History Tobacco Use Types Packs/Day Years Used Date Smoking Tobacco: Never Assessed Sex and Gender Information Value Date Recorded Sex Assigned at Not on file Gender Identity Not on file Sexual Orientation Not on file documented as of this encounter Plan of Treatment Not on file documented as of this encounter Procedures Procedure Name Priority Date/Time Associated Diagnosis Comments VITAMIN D 25 HYDROXY Routine 04/25/2024 5:49 AM EST Vitamin D deficiency, unspecified 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) Heart failure, unspecified (CMS/HCC) Essential (primary) hypertension COMPLETE BLOOD COUNT Routine 04/25/2024 5:49 AM EST Vitamin D deficiency, unspecified 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) Heart failure, unspecified (CMS/HCC) Essential (primary) hypertension THYROID STIMULATING HORMONE Routine 04/25/2024 5:49 AM EST Vitamin D deficiency, unspecified 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) Heart failure, unspecified (CMS/HCC) Essential (primary) hypertension HEMOGLOBIN A1C Routine 04/25/2024 5:49 AM EST Vitamin D deficiency, unspecified 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) Heart failure, unspecified (CMS/HCC) Essential (primary) hypertension FOLATE Routine 04/25/2024 5:49 AM EST Vitamin D deficiency, unspecified 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) Heart failure, unspecified (CMS/HCC) Essential (primary) hypertension VITAMIN B12 Routine 04/25/2024 5:49 AM EST Vitamin D deficiency, unspecified 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 Blood Venous blood specimen / Unknown Venipuncture / Unknown 04/25/2024 5:49 AM EST 04/25/2024 9:21 AM EST Torrey Kwok MD LAB BLOOD ORDERABLES [facility] [address] [place] [address], * Thyroid stimulating hormone (04/25/2024 5:49 AM EST) Pathologist [facility] TSH 3.04 0.40 - 4.00 mcIU/mL LAB CHEMISTRY METHOD 04/25/2024 10:[address] [facility] Blood Venous blood specimen / Unknown Venipuncture / Unknown 04/25/2024 5:49 AM EST 04/25/2024 9:21 AM EST Torrey Kwok MD LAB BLOOD ORDERABLES Performing Organization Address City/[facility]/ZIP Co de Phone Number [facility] [address] [place] [address], [place] [phone] * Folate (04/25/2024 5:49 AM EST) [facility] Folate 12.8 2.8 - 17.0 ng/ml LAB CHEMISTRY METHOD 04/25/2024 11:[address] [facility] Blood Venous blood specimen / Unknown Venipuncture / Unknown 04/25/2024 5:49 AM EST 04/25/2024 9:21 AM EST Torrey Kwok MD LAB BLOOD ORDERABLES Performing Organization Address [facility]/ZIP Co de Phone Number [facility] [address] [place] [address], [place] [phone] * Vitamin B12 (04/25/2024 5:49 AM EST) [facility] Vitamin B-12 711 250 - 900 pcg/mL LAB CHEMISTRY METHOD 04/25/2024 11:[address] [facility] Blood Venous blood specimen / Unknown Venipuncture / Unknown 04/25/2024 5:49 AM EST 04/25/2024 9:21 AM EST Torrey Kwok MD LAB BLOOD ORDERABLES Performing Organization Address City/[facility]/ZIP Co de Phone Number [facility] [address] [place] [address], [place] [phone] * (ABNORMAL) Hemoglobin A1c (04/25/2024 5:49 AM EST) Hemoglobin A1C 8.7(H) <6.5 % LAB CHEMISTRY METHOD 04/25/2024 1:33 PM [facility] Mean Bld Glu Estim. 203 mg/dL LAB CHEMISTRY METHOD 04/25/2024 1:33 PM [facility] Blood Venous blood specimen / Unknown Venipuncture / Unknown 04/25/2024 5:49 AM EST 04/25/2024 9:21 AM EST Torrey Kwok MD LAB BLOOD ORDERABLES [facility] [address] [place] [address], * (ABNORMAL) Comprehensive metabolic panel (04/25/2024 5:49 AM EST) [facility] Sodium 135 133 - 145 mmol/L LAB CHEMISTRY METHOD 04/25/2024 11:26 AM [facility] Potassium 4.0 3.5 - 5.5 mmol/L LAB CHEMISTRY METHOD 04/25/2024 11:26 AM [facility] Chloride 98 96 - 110 mmol/L LAB CHEMISTRY METHOD 04/25/2024 11:26 AM [facility] CO2 30 21 - 32 mmol/L LAB CHEMISTRY METHOD 04/25/2024 11:26 AM [facility] Anion Gap 7 3 - 11 LAB CHEMISTRY METHOD 04/25/2024 11:26 AM [facility] Glucose 290(H) 70 - 100 mg/dL LAB CHEMISTRY METHOD 04/25/2024 11:26 AM [facility] BUN 25 5 - 25 mg/dL LAB CHEMISTRY METHOD 04/25/2024 11:26 AM [facility] Creatinine 1.06 0.50 - 1.10 mg/dL LAB CHEMISTRY METHOD 04/25/2024 11:26 AM [facility] eGFR 51(L) >=60 mL/min/1. 73m2 LAB CHEMISTRY METHOD 04/25/2024 11:26 AM [facility] Comment:Calculation based on the??Chronic Kidney Disease Epidemiology Collaboration (CKD-EPI) equation refit??without adjustment for race. BUN/Creatinine Ratio 23.6 LAB CHEMISTRY METHOD 04/25/2024 11:26 AM [facility] Calcium 8.2(L) 8.5 - 10.5 mg/dL LAB CHEMISTRY METHOD 04/25/2024 11:26 AM [facility] AST (SGOT) 17 10 - 42 unit/L LAB CHEMISTRY METHOD 04/25/2024 11:26 AM [facility] ALT (SGPT) 16 10 - 60 unit/L LAB CHEMISTRY METHOD 04/25/2024 11:26 AM [facility] Alkaline Phosphatase 81 42 - 121 unit/L LAB CHEMISTRY METHOD 04/25/2024 11:26 AM [facility] Total Protein 5.3(L) 6.0 - 8.0 g/dL LAB CHEMISTRY METHOD 04/25/2024 11:26 AM [facility] Albumin 2.7(L) 3.2 - 5.0 g/dL LAB CHEMISTRY METHOD 04/25/2024 11:26 AM [facility] Total Bilirubin 1.2 0.0 - 1.4 mg/dL LAB CHEMISTRY METHOD 04/25/2024 11:26 AM [facility] Blood Venous blood specimen / Unknown Venipuncture / Unknown 04/25/2024 5:49 AM EST 04/25/2024 9:21 AM EST Torrey Kwok MD LAB BLOOD ORDERABLES [facility] [address] [place] [address], * (ABNORMAL) Complete blood count (04/25/2024 5:49 AM EST) [facility] WBC 7.7 4.8 - 10.8 K/mcL LAB HEMETOLOGY METHOD 04/25/2024 10:07 AM [facility] RBC 2.90(L) 3.80 - 4.80 M/mcL LAB HEMETOLOGY METHOD 04/25/2024 10:07 AM [facility] Hemoglobin 9.1(L) 11.5 - 16.0 g/dL LAB HEMETOLOGY METHOD 04/25/2024 10:07 AM [facility] Hematocrit 27.7(L) 35.0 - 47.0 % LAB HEMETOLOGY METHOD 04/25/2024 10:07 AM [facility] MCV 94.9 79.0 - 98.0 FL LAB HEMETOLOGY METHOD 04/25/2024 10:07 AM [facility] MCH 31.2 27.0 - 32.0 pcg LAB HEMETOLOGY METHOD 04/25/2024 10:07 AM [facility] MCHC 32.9 32.0 - 37.0 g/dL LAB HEMETOLOGY METHOD 04/25/2024 10:07 AM [facility] RDW 15.5(H) 11.0 - 15.0 % LAB HEMETOLOGY METHOD 04/25/2024 10:07 AM [facility] Platelets 214 130 - 400 K/mcL LAB HEMETOLOGY METHOD 04/25/2024 10:07 AM [facility] MPV 10.8 7.0 - 11.0 FL LAB HEMETOLOGY METHOD 04/25/2024 10:07 AM [facility] NRBC 0.0 <1.0 % LAB HEMETOLOGY METHOD 04/25/2024 10:07 AM [facility] NRBC Absolute 0.00 <0.10 K/mcL LAB HEMETOLOGY METHOD 04/25/2024 10:[address] [facility] Blood Venous blood specimen / Unknown Venipuncture / Unknown 04/25/2024 5:49 AM EST 04/25/2024 9:21 AM EST Torrey Kwok MD LAB BLOOD ORDERABLES 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
--- OUTSIDE RECORDS SUMMARY | 2024-05-06 13:45 | XMS_ITS | Encounter Summary ---
Author Organization [facility] Address [address] [place] [address] Care Team Providers Care Associate Manager Name Role Phone Torrey Kwok MD Primary Care Provider [phone] Encounter Details Date Type Department Care Team (Late st Contact Info) Description 05/01/2024 Lab Requisition [facility] - Main Lab [address] [facility] [place] [address] Torrey Kwok MD [address] [place] [address] Type 2 diabetes mellitus without complications (CMS/HCC) [...] Associated Diagnosis Comments BASIC METABOLIC PANEL Routine 05/01/2024 7:06 AM EST Type 2 diabetes mellitus without complications (CMS/HCC) documented in this encounter Results * (ABNORMAL) Basic metabolic panel (05/01/2024 7:06 AM EST) Sodium 134 133 - 145 mmol/L LAB CHEMISTRY METHOD 05/01/2024 9:17 AM EST [facility] Potassium 4.0 3.5 - 5.5 mmol/L LAB CHEMISTRY METHOD 05/01/2024 9:17 AM EST [facility] Chloride 97 96 - 110 mmol/L LAB CHEMISTRY METHOD 05/01/2024 9:17 AM EST [facility] CO2 29 21 - 32 mmol/L LAB CHEMISTRY METHOD 05/01/2024 9:17 AM [facility] Anion Gap 8 3 - 11 LAB CHEMISTRY METHOD 05/01/2024 9:17 AM [facility] Glucose 262(H) 70 - 100 mg/dL LAB CHEMISTRY METHOD 05/01/2024 9:17 AM [facility] BUN 45(H) 5 - 25 mg/dL LAB CHEMISTRY METHOD 05/01/2024 9:17 AM [facility] Creatinine 1.66(H) 0.50 - 1.10 mg/dL LAB CHEMISTRY METHOD 05/01/2024 9:17 AM [facility] eGFR 30(L) >=60 mL/min/1. 73m2 LAB CHEMISTRY METHOD 05/01/2024 9:17 AM [facility] Comment:Calculation based on the??Chronic Kidney Disease Epidemiology Collaboration (CKD-EPI) equation refit??without adjustment for race. BUN/Creatinine Ratio 27.1 LAB CHEMISTRY METHOD 05/01/2024 9:17 AM [facility] Calcium 7.6(L) 8.5 - 10.5 mg/dL LAB CHEMISTRY METHOD 05/01/2024 9:17 AM [facility] Blood Venous blood specimen / Unknown Venipuncture / Unknown 05/01/2024 7:06 AM EST 05/01/2024 8:25 AM EST Torrey Kwok MD LAB BLOOD ORDERABLES [facility] [address] [place] [address], documented in this encounter Visit Diagnoses Diagnosis Type 2 diabetes mellitus without complications (CMS/HCC) documented in this encounter Care Teams Associate Manager Relationship Specialty Start Date End Date Torrey Kwok MD [address] [facility] [address] [place] [address] PCP - General Geriatric Medicine 04/25/24 documented as of this encounter
--- OUTSIDE RECORDS SUMMARY | 2024-05-06 13:45 | XMS_ITS | Encounter Summary ---
Author Organization [facility] Address [address] [place] [address] Care Team Providers Care Service Greeter Name Role Phone Torrey Kwok MD Primary Care Provider [phone] Encounter Details Date Type Department Care Team (Late st Contact Info) Description 04/29/2024 Lab Requisition [facility] - Main Lab [address] [facility] [place] [address] Torrey Kwok MD [address] [place] [address] Dysuria Social History Tobacco Use Types Packs/Day Years Used Date Smoking Tobacco: Never Assessed Sex and Gender Information Value Date Recorded Sex Assigned at Not on file Gender Identity Not on file Sexual Orientation Not on file documented as of this encounter Plan of Treatment Not on file documented as of this encounter Procedures Procedure Name Priority Date/Time Associated Diagnosis Comments URINALYSIS WITH REFLEX MICROSCOPIC AND CULTURE Routine 04/28/2024 12:15 PM EST Dysuria FROST URINE CULTURE TUBE Routine 04/28/2024 12:15 PM EST Dysuria URINALYSIS WITH REFLEX MICROSCOPIC AND CULTURE Routine 04/28/2024 12:15 PM EST Dysuria CULTURE URINE Routine 04/28/2024 12:15 PM EST Dysuria documented in this encounter Results * (ABNORMAL) Culture urine (04/28/2024 12:15 PM EST) Culture, Urine >100,000 CFU/mL Escherichia coli(A) ANDRE 05/01/2024 11:04 AM EST [facility] Urine Urine specimen from urinary conduit / Unknown Non-blood Collection / Unknown 04/28/2024 12:15 PM EST 04/29/2024 11:05 AM EST Narrative Organism Antibiotic Method Susceptibility Escherichia coli Amoxicillin/Clavulanate ANDRE <=2 ug/ml: Susceptible Escherichia coli Ampicillin/Sulbactam ANDRE <=2 ug/ml: Susceptible Escherichia coli Piperacillin/Tazobactam ANDRE <=4 ug/ml: Susceptible Escherichia coli Cefazolin (Urine) ANDRE <=1 ug/ml: Susceptible Escherichia coli Cefoxitin ANDRE <=4 ug/ml: Susceptible Escherichia coli Ceftazidime ANDRE <=0.5 ug/ml: Susceptible Escherichia coli Ceftriaxone ANDRE <=0.25 ug/ml: Susceptible Escherichia coli Cefepime ANDRE <=0.12 ug/ml: Susceptible Escherichia coli Meropenem ANDRE <=0.25 ug/ml: Susceptible Escherichia coli Amikacin ANDRE 2 ug/ml: Susceptible Escherichia coli Gentamicin ANDRE <=1 ug/ml: Susceptible Escherichia coli Ciprofloxacin ANDRE <=0.06 ug/ml: Susceptible Escherichia coli Levofloxacin ANDRE <=0.12 ug/ml: Susceptible Escherichia coli Nitrofurantoin ANDRE <=16 ug/ml: Susceptible Escherichia coli Trimethoprim/Sulfamethoxazole ANDRE <=20 ug/ml: Susceptible Torrey Kwok MD LAB MICROBIOLOGY - G ENERAL ORDERABLES Performing Organization Address City/[facility]/ZIP Co de Phone Number [facility] [address] [place] [address], [place] [phone] * Frost urine culture tube (04/28/2024 12:15 PM EST) Extra Tube Hold for add-ons. 04/29/2024 11:01 AM EST [facility] Comment:Auto resulted. Urine Urine specimen obtained by clean catch procedure / Unknown 04/28/2024 12:15 PM EST 04/29/2024 9:53 AM EST Torrey Kwok MD LAB URINE ORDERABLES Performing Organization Address City/[facility]/ZIP Co de Phone Number [facility] [address] [place] [address], * (ABNORMAL) Urinalysis with reflex microscopic and culture (04/28/2024 12:15 PM EST) Specific [place] Urine 1.021 1.003 - 1.030 LAB URINALYSIS - AUTOMATED METHOD 04/29/2024 11:05 AM [facility] pH, Urine 5.5 5.0 - 8.0 pH LAB URINALYSIS - AUTOMATED METHOD 04/29/2024 11:05 AM [facility] Leukocytes, Urine Trace(A) Negative LAB URINALYSIS - AUTOMATED METHOD 04/29/2024 11:05 AM [facility] Nitrite, Urine Negative Negative LAB URINALYSIS - AUTOMATED METHOD 04/29/2024 11:05 AM [facility] Protein, Urine Trace <=Trace mg/dL LAB URINALYSIS - AUTOMATED METHOD 04/29/2024 11:05 AM [facility] Glucose, Urine >=1000(A) Negative mg/dL LAB URINALYSIS - AUTOMATED METHOD 04/29/2024 11:05 AM [facility] Ketones, Urine 15(A) Negative mg/dL LAB URINALYSIS - AUTOMATED METHOD 04/29/2024 11:05 AM [facility] Urobilinogen , Urine 0.2 0.2 - 1.0 mg/dL LAB URINALYSIS - AUTOMATED METHOD 04/29/2024 11:05 AM [facility] Bilirubin, Urine Negative Negative LAB URINALYSIS - AUTOMATED METHOD 04/29/2024 11:05 AM [facility] Blood, Urine Negative Negative LAB URINALYSIS - AUTOMATED METHOD 04/29/2024 11:05 AM [facility] RBC, Urine 0.8 0 - 4 /HPF LAB URINALYSIS - AUTOMATED METHOD 04/29/2024 11:05 AM [facility] WBC, Urine 12.6(H) 0 - 4 /HPF LAB URINALYSIS - AUTOMATED METHOD 04/29/2024 11:05 AM [facility] Squamous Epithelial, Urine 10 0 - 60 /LPF LAB URINALYSIS - AUTOMATED METHOD 04/29/2024 11:05 AM [facility] Bacteria, Urine Many(A) Negative /HPF LAB URINALYSIS - AUTOMATED METHOD 04/29/2024 11:05 AM [facility] Hyaline Casts, Urine 0.4 0 - 3 /LPF LAB URINALYSIS - AUTOMATED METHOD 04/29/2024 11:05 AM [facility] Urine Urine specimen from urinary conduit / Unknown Non-blood Collection / Unknown 04/28/2024 12:15 PM EST 04/29/2024 9:53 AM EST Torrey Kwok MD LAB URINE ORDERABLES Performing Organization Address City/State/[facility] Co de Phone Number [facility] [address] [place] [address], documented in this encounter Visit Diagnoses Diagnosis Dysuria documented in this encounter Care Teams Service Greeter Relationship Specialty Start Date End Date Torrey Kwok MD [address] [place] [address] [address] [place] [address] PCP - General Geriatric Medicine 04/25/24 documented as of this encounter
--- OUTSIDE RECORDS SUMMARY | 2024-05-06 13:45 | XMS_ITS | Clinical Summary ---
Author Organization [facility] Address [address] [facility] [address] [place] [address] Phone Care Team Providers Care Claim Administrator Name Role Phone Monique White MD Primary Care Provider [phone] Allergies Active Allergy Reactions Criticality Noted Date Comments Codeine Other (see comments) 06/01/2021 Nitrofurantoin 06/01/2021 Pravastatin 06/01/2021 Rosuvastatin 06/01/2021 Sulfa Antibiotics 09/22/2020 Trimethoprim 06/01/2021 Medications Cholecalciferol 50 MCG (1999) capsule Take 1 capsule by mouth 1 (one) time each day Active insulin lispro (HumaLOG) 100 UNIT/ML injection Active Insulin Glargine, 1 Unit Dial, (Toujeo SoloStar) 300 UNIT/ML solution pen-injector Active levothyroxine (SYNTHROID, LEVOTHROID) 125 MCG tablet Take 1 tablet by mouth 1 (one) time each day Active Travoprost, JANE Free, 0.004 % solution Active metoprolol succinate XL (TOPROL-XL) 100 MG 24 hr tablet Take 1 tablet by mouth 1 (one) time each day Active simvastatin (ZOCOR) 10 MG tablet Take 10 mg by mouth in the morning. 1 Active rivaroxaban (XARELTO) 20 MG tablet Take 15 mg by mouth 1 Active metOLazone 2.5 MG tablet Take 2.5 mg by mouth Active lactulose (CHRONULAC) 10 GM/15ML solution TAKE 15 TO 30 ML BY MOUTH DAILY NEEDED FOR CONSTIPATION 1 Active hydrALAZINE 50 MG tablet 25 mg Active furosemide (LASIX) 20 MG tablet Take 40 mg by mouth in the morning and 40 mg in the evening. Active Diclofenac Sodium 1 % gel Apply topically 4 times a day Active Acetaminophen 500 MG capsule Take 1,000 mg by mouth Active amiodarone (PACERONE) 200 MG tablet Take 200 mg by mouth in the morning and 200 mg in the evening. 2 Active omeprazole (PriLOSEC) [address] capsule Take 20 mg by mouth 1 (one) time each day Do not crush or chew. Active calcitriol (ROCALTROL) 0.25 MCG capsule TAKE 1 CAPSULE(0.25 MCG) BY MOUTH EVERY OTHER DAY 45 capsule 4 Active Active Problems Problem Noted Date Diagnosed Date Stage 3b chronic kidney disease 02/05/2023 Type 1 diabetes mellitus wit h diabetic chronic kidney disease 07/14/2022 Overview (11/15/2023): CKD. Dr. Penaloza Last Assessment & Plan: Following w/ renal. BP controlled. 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 Gentle, regular exercise routine as educated by PT (per her report last PT at [facility] in July-August 2020). I have encouraged her to walk to the music at home since she loves dancing regularly starting from 5 minutes daily and build up gradually as tolerated up to 45-60 minutes daily. Avoid falls, injuries, overuse. Keep body weight in ideal range for her height. She may benefit from topical cream such as Arnica, Biofreeze, Aspercreme versus medicated patches such as salonpas, icy hot patch 2-3 times daily and if necessary at bedtime x 3 weeks. Drug therapy finding 01/12/2021 Overview (06/01/2021): Last Assessment & Plan: Avoid falls, injuries and cuts. Monitor for excessive bruising and bleeding. Other insomnia 01/12/2021 Overview (06/01/2021): Last Assessment & Plan: Sleep hygiene. Listen to relaxation tapes prior to bed rest at least 6-8 weeks in a row. Consider using a few drops of essential oil of lavender or chammomile at the end of shower or bath prior to bed rest. Regular meditation, positive imagery. Consider melatonin 3-5 mg nightly or formal sleep study if unable to improve with above measures Patient encounter status 01/12/2021 Overview (06/01/2021): Last Assessment & Plan: Take the lowest dose, with least frequency, for shortest time. Remember to take it always with food. Favor topical over oral preparations. Insulin dependent diabetes mellitus type 1A 09/2020 Overview (06/01/2021): Last Assessment & Plan: Avoid concentrated sugars in the diet. Continue insulin therapy as instructed by prescribing physician. Aim at BS= 90-120 mg % Pain of knee region 10/19/2020 Overview (06/01/2021): Last Assessment & Plan: Continue Voltaren gel, Tylenol 500 mg 2 pills for additional back pain relief. Compression of lumbar nerve root 09/22/2020 Overview (06/01/2021): Last Assessment & Plan: Patient will trial 1/2 dose of Gabapentin 100 mg qhs for back pain relief. She will try medication for two weeks. Continue Voltaren gel, Tylenol 500 mg 2 pills for additional back pain relief. Lumbar spondylosis 09/22/2020 Overview (06/01/2021): Last Assessment & Plan: Patient will trial 1/2 dose of Gabapentin 100 mg qhs for back pain relief. She will try medication for two weeks. Continue Voltaren gel, Tylenol 500 mg 2 pills for additional back pain relief. Primary coxarthrosis, bilateral 09/22/2020 Overview (06/01/2021): Last Assessment & Plan: Continue Voltaren gel, Tylenol 500 mg 2 pills for additional back pain relief. Prolapsed lumbar intervertebral disc 09/22/2020 Overview (06/01/2021): Last Assessment & Plan: Patient will trial 1/2 dose of Gabapentin 100 mg qhs for back pain relief. She will try medication for two weeks. Continue Voltaren gel, Tylenol 500 mg 2 pills for additional back pain relief. Atrial fibrillation 12/09/2019 Chronic diastolic congestive heart failure 12/08 Constipation 12/09/2019 Essential hypertension 12/09/2019 Hypothyroidism 12/09/2019 Osteoarthritis 12/09/2019 Other lack of coordination 12/09/2019 Pain in right hip 12/09/2019 ST elevation myocardial infarction 12/09/2019 Type 2 diabetes mellitus without complication Unspecified fall, subsequent encounter 0 Unsteadiness on feet 12/09/2019 Weakness 12/09/2019 Encounters Date Type Department Care Team Description 02/06/2024 Refill [facility] [address] [place] [address] Tu Oliva MD from Last 3 Months Immunizations Name Administration Dates Next Due Influenza (IM) Preservative Free 021,01/28/2019,01/07/2018,01/09/2017 ,02/23/2015 PPD Test 12/09/2019 Pfizer SARS-COV-2 02/15/2021 Family History Medical History Relation Comments Hypertension Mother Relation Status Comments Mother Social History Tobacco Use Types Packs/Day Years Used Date Smoking Tobacco: Former Cigarettes Q uit: 04/09/1964 Smokeless Tobacco: Never Tobacco Cessation:Counseling Given: Not Answered Comments:Smoking History Info:Every day Alcohol Use Standard Drinks/Week Comments No 0 (1 standard drink = 0.6 oz pur e alcohol) Comments Unknown Sex and Gender Information Value Date Recorded Sex Assigned at Not on file Legal Sex Female 4:47 PM EST Gender Identity Not on file Sexual Orientation Not on file Last Filed Vital Signs Vital Sign Reading Time Taken Comments Blood Pressure 119/59 11/15/2023 3:29 PM EDT Pulse 64 11/15/2023 3:29 PM EDT Temperature - - Respiratory Rate - - Oxygen Saturation 96% 11/15/2023 3:29 PM EDT Inhaled Oxygen Concentration - - Weight 62.4 kg (137 lb 9.6 oz) 11/15/2023 3:29 P M EDT Height - - Body Mass Index - - Plan of Treatment Upcoming Encounters Date Type Department Care Team (Late st Contact Info) Description 05/19/2024 1:00 PM EST Office Visit [facility] [address] [place] [address] Tu Oliva MD [address] [facility] [address] [place] [address] Health Maintenance Due Date Last Done Comments Pneumococcal Vaccine: 65+ Years (1 of 2 - PCV) 1941 Diabetes: Hemoglobin A1C 05/09/2020 Diabetes: Ophthalmology Exam 05/09/2020 Diabetes: Pedal Pulse Checked 05/09/2020 Diabetes: Sensory Foot Exam 05/09/2020 Diabetes: Visual Foot Exam 05/09/2020 Influenza Vaccine (#1) 2023 , 01/28/2019, 01/07/2018, Additional history exists Hepatitis B Vaccine Aged Out No longe r eligible based on patient's age to complete this topic Insurance [facility] MEDICARE [facility] MEDICARE Care Teams Claim Administrator Relationship Specialty Start Date End Date Monique White MD [facility] [place] [address] [place] PCP - General Internal Medicine 03/11/21
--- OUTSIDE RECORDS SUMMARY | 2024-05-06 13:46 | XMS_ITS ---
Author Organization [facility] Address [address] [place] [address] Care Team Providers Care Sales Program Manager Name Role Phone Monique White Primary Care Provider Arturo Brown Unavailable [phone] Encounters Encounter Location Date Provider Diagnosis [address] [address] 05/06/2024 Arturo Simon Plan Of Treatment Next Appt Details Provider Name:Arturo Simon , 08/08/2024 10:00:00 AM, [address] [place], [address], Progress Notes * Gerri SCHWARTZ RDOB:[birth year] (88 yo F)Acc No.[id number]:05/06/2024 Progress Note Patient:?Gerri SCHWARTZ R Provider:?Arturo Simon DPM :1935???Age:88 Y???Sex:Female D ate:05/06/2024 Address:[id number] Pcp:Monique White Subjective: * Chief Complaints: * ??? * Medical History:? Objective: * Vitals:? Assessment: Plan: * Treatment: * Images: * The named appointment provid er may or may not be the originator of this progress note, and it is not deemed complete until electronically signed by the appointment provider. Sign off status: Pending * Provider:?Arturo Simon DPM Date:?2024 Generated for Awilda diggs/Lee/Nilay on:?05/06/2024 01:45 PM EST
--- OUTSIDE RECORDS SUMMARY | 2024-05-06 13:46 | XMS_ITS | Patient Health Record ---
Author Organization [facility] Address [address] [place] [address] Care Team Providers Care Machine Fastener Name Role Phone Po Monique HODGE Primary Care Provider John Moore Jr Unavailable ALLERGIES Allergen (clinical drug ingredient) Drug/Non Drug Allergy documented on EMR Reaction Allergy Type Onset Date Status codeine Codeine Sulfate Unknown Drug Allergy A ctive REASON FOR REFERRAL No Information MEDICATIONS Medication SIG (Take, Route, Frequency, Duration) Notes Start Date End Date Status Omeprazole 20 MG 1 capsule Orally for 30 days 10/30/2018 Active HumaLOG 100 UNIT/ML TID Subcutaneous as directed Active Furosemide 40 MG 1 tablet Orally Twic e a day Active Losartan Potassium 100 MG 1 tablet Orall y Once a day Active Amoxicillin 500 MG 2 capsules Orally Tw ice a day for 14 days 10/30/2018 Active Levothyroxine Sodium 125 MCG 1 tablet on an empty stomach in the morning Orally Once a day Active Clarithromycin 500 MG 1 tablet Orally ev missy 12 hrs for 14 days 10/30/2018 Active Xarelto 20 MG TK 1 T PO QD WF Oral Once a day Active Spironolactone 25 MG TK 1 T PO QD Oral O nce a day Active Amiodarone HCl 100 MG TK 1 T PO D Orally Once a day Active Toujeo SoloStar 300 UNIT/ML 14 UNITS Sub cutaneous DIRECTED Active hydrALAZINE HCl 10 MG TK 1 T PO BID Oral as directed Active Metoprolol Succinate 100MG 1 TABLET ORAL LY ONCE A DAY Active Omeprazole 20 TAKE 1 CAPSULE BY [facility] TWICE DAILY for 90 days Active IMMUNIZATIONS Vaccine Route Administration Date Status Comme nts Influenza Unknown 02/08/2016 Administered Influenza Unknown 02/07/2018 Administered SOCIAL HISTORY Sex Assigned At : Social History Observation Description Sex Assigned At Unknown PROBLEMS Problem Type ICD Code Onset Dates Problem Status W/U Status Risk SNOMED Code Notes Problem Gastro-esophagea l reflux disease without esophagitis (K21.9) Active confirmed 774372740 Problem Dysphagia, unspecified type (R13.10) Active confirmed 14488990 Problem Abnormal UGI series (R93.3) Active confirmed 126001480 Problem Hypertension, unspecified type (I10) Active confirmed 82197707 Encounters Encounter Location Date Provider Diagnosis [facility] [address] [place] [address] 07/09/2023 John Epps Jr PLAN OF TREATMENT Pending Test Test Name Order Date XR GI SERIES 07/20/2016 Insurance Providers Payer Name Payer Address Payer Phone Subscriber Number Group Number Insured Name Patient Relationship to Insured Coverage Start Date Coverage End Date MEDICARE OF [place] [address] [place] [address] [id number] CHARLY SCHWARTZ Self - patient is the insured [employer] CLAIMS [address] [place] [address] [id number] CHARLY SCHWARTZ Self - patient is the insured MEDICAL (GENERAL) HISTORY Medical History History ICD Code colonoscopy 03/25/2004 diabetes mellitus osteoporosis Hypothyroidism elevated cholesterol hypertension diverticulosis internal hemorrhoids congestive heart failure urinary incontinence-mild Surgical History Surgery Date(Month/Year) cholecystectomy knee surgery section left hip replacement right knee replacement cardioversion 12/2015
--- OUTSIDE RECORDS SUMMARY | 2024-05-06 13:46 | XMS_ITS ---
Author Organization [facility] Address [address] [place] [address] Care Team Providers Care Mall Manager Name Role Phone Monique White Primary Care Provider Arturo Brown [phone] REASON FOR VISIT Cancel Encounters Encounter Location Date Provider Diagnosis [address] [address] 05/05/2024 Arturo Simon Plan Of Treatment Next Appt Details Provider Name:Arturo Simon , 08/08/2024 10:00:00 AM, [address] [place], [address], Progress Notes * Gerri SCHWARTZ RDOB:[birth year] (88 yo F)Acc No.[id number]:05/05/2024 Patient:?Gerri SCHWARTZ :1935???Age:88 Y???Sex:Female Address:[place], [address] * true * Date:? Generated for Jaquani dontae/Lee/eTransmitting on:?05/06/2024 01:45 PM EST
--- OUTSIDE RECORDS SUMMARY | 2024-05-06 13:46 | XMS_ITS | Clinical Summary ---
Author Organization [address] [facility] Address [address] [place] [address] Phone Care Team Providers Care Coin Wrapping Machine Operator Name Role Phone Torrey Kwok MD Primary Care Provider [phone] Encounters Date Type Department Care Team Description 05/05/2024 Lab Requisition [facility] Lab [address] [place] [phone] Torrey Kwok MD Chronic kidney disease, stage 3 unspecified (CMS/HCC); Type 2 diabetes mellitus with diabetic chronic kidney disease (CMS/HCC) 05/01/2024 Lab Requisition [facility] Lab [address] [place] [phone] Torrey Kwok MD Type 2 diabetes mellitus without complications (CMS/HCC) 04/30/2024 Lab Requisition [facility] Lab [address] [place] [phone] Torrey Kwok MD Type 2 diabetes mellitus without complications (CMS/HCC) 04/29/2024 Lab Requisition [facility] Lab [address] [place] [phone] Torrey Kwok MD Dysuria 04/25/2024 Lab Requisition [facility] Lab [address] [place] [phone] Torrey Kwok MD Vitamin D deficiency, unspecified; 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); Heart failure, unspecified (CMS/HCC); Essential (primary) hypertension from Last 3 Months Social History Tobacco Use Types Packs/Day Years Used Date Smoking Tobacco: Never Assessed Sex and Gender Information Value Date Recorded Sex Assigned at Not on file Gender Identity Not on file Sexual Orientation Not on file Plan of Treatment Health Maintenance Due Date Last Done Comments Pneumococcal Vaccine: 65+ Years (1 of 2 - PCV) 1942 Diabetes: Annual Foot Exam 1946 Diabetes: Annual Retina Eye Exam 1945 DTaP,Tdap,and Td Vaccines (1 - Tdap) 08/17/1955 Zoster Vaccines (1 of 2) 1986 RSV Immunization Patients 60 + Years Old (1 - 1-dose 75+ series) 08/17/2011 COVID-19 Vaccine ( - 2023-2 5 season) 2023 Influenza Vaccine (#1) 2023 Cholesterol Screening (Lipid Panel) 04/25/2024 Depression Screening 04/25/2024 Falls Risk Assessment 04/25/2024 Medicare Annual Wellness Visit 04/25/2024 Osteoporosis Screening (Bone Density Screening) 04/25/2024 Social Influencers of Health Screening 04/25/2024 Diabetes: Blood Sugar Contro l Test (HGBA1C) 10/23/2024 04/25/2024 Hypertension/CHF/CAD Annual BMP Blood Test 05/05/2025 05/05/2024, 05/01/2024, 04/25/2024 HIB Vaccines Aged Out No longer eligi ble based on patient's age to complete this topic HPV Vaccines Aged Out No longer eligi ble based on patient's age to complete this topic Hepatitis A Vaccines Aged Out No long er eligible based on patient's age to complete this topic Hepatitis B Vaccines Aged Out No long er eligible based on patient's age to complete this topic IPV Vaccines Aged Out No longer eligi ble based on patient's age to complete this topic MMR Vaccines Aged Out No longer eligi ble based on patient's age to complete this topic Meningococcal ACWY Vaccine Aged Out N o longer eligible based on patient's age to complete this topic RSV Immunization Patients Under 20 months Aged Out No longer eligible b ased on patient's age to complete this topic Varicella Vaccines Aged Out No longer eligible based on patient's age to complete this topic Procedures Procedure Name Priority Date/Time Associated Diagnosis Comments BASIC METABOLIC PANEL Routine 05/05/2024 5:43 AM EST Chronic kidney disease, stage 3 unspecified (CMS/HCC) Type 2 diabetes mellitus with diabetic chronic kidney disease (CMS/HCC) BASIC METABOLIC PANEL Routine 05/01/2024 7:06 AM EST Type 2 diabetes mellitus without complications (CMS/HCC) COMPLETE BLOOD COUNT Routine 04/30/2024 6:31 AM EST Type 2 diabetes mellitus without complications (CMS/HCC) FROST URINE CULTURE TUBE Routine 04/28/2024 12:15 PM EST Dysuria URINALYSIS WITH REFLEX MICROSCOPIC AND CULTURE Routine 04/28/2024 12:15 PM EST Dysuria URINALYSIS WITH REFLEX MICROSCOPIC AND CULTURE Routine 04/28/2024 12:15 PM EST Dysuria CULTURE URINE Routine 04/28/2024 12:15 PM EST Dysuria VITAMIN D 25 HYDROXY Routine 04/25/2024 5:49 [...] Heart failure, unspecified (CMS/HCC) Essential (primary) hypertension from Last 3 Months Results * (ABNORMAL) Basic metabolic panel (05/05/2024 5:43 AM EST) Only the most recent of2 resultswithin the time period is included. Sodium 134 133 - 145 mmol/L LAB CHEMISTRY METHOD 05/05/2024 2:[address] [facility] Potassium 5.0 3.5 - 5.5 mmol/L LAB CHEMISTRY METHOD 05/05/2024 2:[address] [facility] Comment:Hemolysis present Chloride 99 96 - 110 mmol/L LAB CHEMISTRY METHOD 05/05/2024 2:[address] [facility] CO2 26 21 - 32 mmol/L LAB CHEMISTRY METHOD 05/05/2024 2:[address] [facility] Anion Gap 9 3 - 11 LAB CHEMISTRY METHOD 05/05/2024 2:[address] [facility] Glucose 141(H) 70 - 100 mg/dL LAB CHEMISTRY METHOD 05/05/2024 2:[address] [facility] BUN 23 5 - 25 mg/dL LAB CHEMISTRY METHOD 05/05/2024 2:[address] [facility] Creatinine 1.08 0.50 - 1.10 mg/dL LAB CHEMISTRY METHOD 05/05/2024 2:[address] [facility] eGFR 50(L) >=60 mL/min/1. 73m2 LAB CHEMISTRY METHOD 05/05/2024 2:05 PM EST [facility] Comment:Calculation based on the??Chronic Kidney Disease Epidemiology Collaboration (CKD-EPI) equation refit??without adjustment for race. BUN/Creatinine Ratio 21.3 LAB CHEMISTRY METHOD 05/05/2024 2:[address] [facility] Calcium 8.3(L) 8.5 - 10.5 mg/dL LAB CHEMISTRY METHOD 05/05/2024 2:[address] [facility] Blood Venous blood specimen / Unknown Venipuncture / Unknown 05/05/2024 5:43 AM EST 05/05/2024 11:40 AM EST Torrey Kwok MD LAB BLOOD ORDERABLES [facility] [address] [place] [address], * (ABNORMAL) Complete blood count (04/30/2024 6:31 AM EST) Only the most recent of2 resultswithin the time period is included. WBC 6.6 4.8 - 10.8 K/mcL LAB HEMETOLOGY METHOD 04/30/2024 2:[address] [facility] RBC 3.40(L) 3.80 - 4.80 M/mcL LAB HEMETOLOGY METHOD 04/30/2024 2:[address] [facility] Hemoglobin 10.7(L) 11.5 - 16.0 g/dL LAB HEMETOLOGY METHOD 04/30/2024 2:[address] [facility] Hematocrit 34.7(L) 35.0 - 47.0 % LAB HEMETOLOGY METHOD 04/30/2024 2:[address] [facility] MCV 101.5(H) 79.0 - 98.0 FL LAB HEMETOLOGY METHOD 04/30/2024 2:51 PM EST [facility] MCH 31.3 27.0 - 32.0 pcg LAB HEMETOLOGY METHOD 04/30/2024 2:51 PM EST [facility] MCHC 30.8(L) 32.0 - 37.0 g/dL LAB HEMETOLOGY METHOD 04/30/2024 2:51 PM EST [facility] RDW 17.1(H) 11.0 - 15.0 % LAB HEMETOLOGY METHOD 04/30/2024 2:[address] [facility] Platelets 391 130 - 400 K/mcL LAB HEMETOLOGY METHOD 04/30/2024 2:[address] [facility] MPV 10.8 7.0 - 11.0 FL LAB HEMETOLOGY METHOD 04/30/2024 2:[address] [facility] NRBC 0.5 <1.0 % LAB HEMETOLOGY METHOD 04/30/2024 2:[address] [facility] NRBC Absolute 0.03 <0.10 K/mcL LAB HEMETOLOGY METHOD 04/30/2024 2:[address] [facility] Blood Venous blood specimen / Unknown Venipuncture / Unknown 04/30/2024 6:31 AM EST 04/30/2024 1:53 PM EST Torrey Kwok MD LAB BLOOD ORDERABLES [facility] [address] [place] [address], * (ABNORMAL) Urinalysis with reflex microscopic and culture (04/28/2024 12:15 PM EST) Specific [place] Urine 1.021 1.003 - 1.030 LAB URINALYSIS - AUTOMATED METHOD 04/29/2024 11:05 AM EST [facility] pH, Urine 5.5 5.0 - 8.0 pH LAB URINALYSIS - AUTOMATED METHOD 04/29/2024 11:[address] [facility] Leukocytes, Urine Trace(A) Negative LAB URINALYSIS - AUTOMATED METHOD 04/29/2024 11:[address] [facility] Nitrite, Urine Negative Negative LAB URINALYSIS - AUTOMATED METHOD 04/29/2024 11:[address] [facility] Protein, Urine Trace <=Trace mg/dL LAB URINALYSIS - AUTOMATED METHOD 04/29/2024 11:[address] [facility] Glucose, Urine >=1000(A) Negative mg/dL LAB URINALYSIS - AUTOMATED METHOD 04/29/2024 11:[address] [facility] Ketones, Urine 15(A) Negative mg/dL LAB URINALYSIS - AUTOMATED METHOD 04/29/2024 11:[address] [facility] Urobilinogen , Urine 0.2 0.2 - 1.0 mg/dL LAB URINALYSIS - AUTOMATED METHOD 04/29/2024 11:[address] [facility] Bilirubin, Urine Negative Negative LAB URINALYSIS - AUTOMATED METHOD 04/29/2024 11:[address] [facility] Blood, Urine Negative Negative LAB URINALYSIS - AUTOMATED METHOD 04/29/2024 11:[address] [facility] RBC, Urine 0.8 0 - 4 /HPF LAB URINALYSIS - AUTOMATED METHOD 04/29/2024 11:[address] [facility] WBC, Urine 12.6(H) 0 - 4 /HPF LAB URINALYSIS - AUTOMATED METHOD 04/29/2024 11:[address] [facility] Squamous Epithelial, Urine 10 0 - 60 /LPF LAB URINALYSIS - AUTOMATED METHOD 04/29/2024 11:[address] [facility] Bacteria, Urine Many(A) Negative /HPF LAB URINALYSIS - AUTOMATED METHOD 04/29/2024 11:[address] [facility] Hyaline Casts, Urine 0.4 0 - 3 /LPF LAB URINALYSIS - AUTOMATED METHOD 04/29/2024 11:[address] [facility] Urine Urine specimen from urinary conduit / Unknown Non-blood Collection / Unknown 04/28/2024 12:15 PM EST 04/29/2024 9:53 AM EST Torrey Kwok MD LAB URINE ORDERABLES [facility] [address] [place] [address], [place] [phone] * Frost urine culture tube (04/28/2024 12:15 PM EST) Extra Tube Hold for add-ons. 04/29/2024 11:[address] [facility] Comment:Auto resulted. Urine Urine specimen obtained by clean catch procedure / Unknown 04/28/2024 12:15 PM EST 04/29/2024 9:53 AM EST Torrey Kwok MD LAB URINE ORDERABLES Performing Organization Address City/[facility]/ZIP Co de Phone Number [facility] [address] [place] [address], [place] [phone] * (ABNORMAL) Culture urine (04/28/2024 12:15 PM EST) Culture, Urine >100,000 CFU/mL Escherichia coli(A) ANDRE 05/01/2024 11:[address] [facility] Urine Urine specimen from urinary [...] - G ENERAL ORDERABLES Performing Organization Address City/[facility]/ZIP Co de Phone Number [facility] [address] [place] [address], [place] [phone] * (ABNORMAL) Vitamin D 25 hydroxy (04/25/2024 5:49 AM EST) Pathologist [facility] Vit D, 25-Hydroxy 25.4(L) 30.0 - 80.0 ng/mL LAB CHEMISTRY METHOD 04/25/2024 10:35 AM EST [facility] Blood Venous blood specimen / Unknown Venipuncture / Unknown 04/25/2024 5:49 AM EST 04/25/2024 9:21 AM EST Torrey Kwok MD LAB BLOOD ORDERABLES Performing Organization Address City/[facility]/ZIP Co de Phone Number [facility] [address] [place] [address], [place] [phone] * Thyroid stimulating hormone (04/25/2024 5:49 AM EST) TSH 3.04 0.40 - 4.00 mcIU/mL LAB CHEMISTRY METHOD 04/25/2024 10:35 AM EST [facility] Blood Venous blood specimen / Unknown Venipuncture / Unknown 04/25/2024 5:49 AM EST 04/25/2024 9:21 AM EST Torrey Kwok MD LAB BLOOD ORDERABLES Performing Organization Address City/[facility]/ZIP Co de Phone Number [facility] [address] [place] [address], * (ABNORMAL) Hemoglobin A1c (04/25/2024 5:49 AM EST) Hemoglobin A1C 8.7(H) <6.5 % LAB CHEMISTRY METHOD 04/25/2024 1:33 PM EST [facility] Mean Bld Glu Estim. 203 mg/dL LAB CHEMISTRY METHOD 04/25/2024 1:33 PM EST [facility] Blood Venous blood specimen / Unknown Venipuncture / Unknown 04/25/2024 5:49 AM EST 04/25/2024 9:21 AM EST Torrey Kwok MD LAB BLOOD ORDERABLES Performing Organization Address [facility]/ZIP Co de Phone Number [facility] [address] [place] [address], * Folate (04/25/2024 5:49 AM EST) Folate 12.8 2.8 - 17.0 ng/ml LAB CHEMISTRY METHOD 04/25/2024 11:26 AM EST [facility] Blood Venous blood specimen / Unknown Venipuncture / Unknown 04/25/2024 5:49 AM EST 04/25/2024 9:21 AM EST Torrey Kwok MD LAB BLOOD ORDERABLES Performing Organization Address City/[facility]/ZIP Co de Phone Number [facility] [address] [place] [address], * Vitamin B12 (04/25/2024 5:49 AM EST) Pathologist [facility] Vitamin B-12 711 250 - 900 pcg/mL LAB CHEMISTRY METHOD 04/25/2024 11:[address] [facility] Blood Venous blood specimen / Unknown Venipuncture / Unknown 04/25/2024 5:49 AM EST 04/25/2024 9:21 AM EST Torrey Kwok MD LAB BLOOD ORDERABLES [facility] [address] [place] [address], * (ABNORMAL) Comprehensive metabolic panel (04/25/2024 5:49 AM EST) [facility] Sodium 135 133 - 145 mmol/L LAB CHEMISTRY METHOD 04/25/2024 11:[address] [facility] Potassium 4.0 3.5 - 5.5 mmol/L LAB CHEMISTRY METHOD 04/25/2024 11:[address] [facility] Chloride 98 96 - 110 mmol/L LAB CHEMISTRY METHOD 04/25/2024 11:[address] [facility] CO2 30 21 - 32 mmol/L LAB CHEMISTRY METHOD 04/25/2024 11:[address] [facility] Anion Gap 7 3 - 11 LAB CHEMISTRY METHOD 04/25/2024 11:[address] [facility] Glucose 290(H) 70 - 100 mg/dL LAB CHEMISTRY METHOD 04/25/2024 11:[address] [facility] BUN 25 5 - 25 mg/dL LAB CHEMISTRY METHOD 04/25/2024 11:[address] [facility] Creatinine 1.06 0.50 - 1.10 mg/dL LAB CHEMISTRY METHOD 04/25/2024 11:[address] [facility] eGFR 51(L) >=60 mL/min/1. 73m2 LAB CHEMISTRY METHOD 04/25/2024 11:[address] [facility] Comment:Calculation based on the??Chronic Kidney Disease Epidemiology Collaboration (CKD-EPI) equation refit??without adjustment for race. BUN/Creatinine Ratio 23.6 LAB CHEMISTRY METHOD 04/25/2024 11:[address] [facility] Calcium 8.2(L) 8.5 - 10.5 mg/dL LAB CHEMISTRY METHOD 04/25/2024 11:[address] [facility] AST (SGOT) 17 10 - 42 unit/L LAB CHEMISTRY METHOD 04/25/2024 11:[address] [facility] ALT (SGPT) 16 10 - 60 unit/L LAB CHEMISTRY METHOD 04/25/2024 11:[address] [facility] Alkaline Phosphatase 81 42 - 121 unit/L LAB CHEMISTRY METHOD 04/25/2024 11:[address] [facility] Total Protein 5.3(L) 6.0 - 8.0 g/dL LAB CHEMISTRY METHOD 04/25/2024 11:[address] [facility] Albumin 2.7(L) 3.2 - 5.0 g/dL LAB CHEMISTRY METHOD 04/25/2024 11:[address] [facility] Total Bilirubin 1.2 0.0 - 1.4 mg/dL LAB CHEMISTRY METHOD 04/25/2024 11:[address] [facility] Blood Venous blood specimen / Unknown Venipuncture / Unknown 04/25/2024 5:49 AM EST 04/25/2024 9:21 AM EST Torrey Kwok MD LAB BLOOD ORDERABLES [facility] [address] [place] [address], from Last 3 Months Care Teams Coin Wrapping Machine Operator Relationship Specialty Start Date End Date Torrey Kwok MD [address] [place] [address] [address] [place] [address] PCP - General Geriatric Medicine 04/25/24
== END 2024-05-05 12:53 | disposition home or self-care (01) ==
LOC: HO.HOSX 12:52
PROVIDERS: Visit Provider Physician Assistant
DX: S72.001A Fracture of unspecified part of neck of right femur, initial encounter for closed fracture (principal)
CPT/HCPCS: 73552; 99212

== ENCOUNTER 2024-05-28 11:51 | Outpatient (REF) | payer MEDICARE, SELFPAY ==
--- NOTE | ~2024-05-28 | XR_ITS ---
EXAMINATION: XR FEMUR, RIGHT CLINICAL INFORMATION: M25.551 - Pain in right hip COMPARISON: May 05, 2024. TECHNIQUE: AP and lateral views of the right femur were obtained. FINDINGS: There is no callus formation in the intertrochanteric fracture. There is no loosening involving the intramedullary karen in the proximal femur or the transfemoral fixation screw. The metallic knee prosthesis is well-seated in the femoral condyles and tibial plateau. Vascular calcifications. No subcutaneous emphysema. The cross lateral view demonstrates a left-sided the hip prosthesis with cerclage. This is no fully included. XR/XR femur RT 2V IMPRESSION: No healing/no callus formation in the intertrochanteric fracture right femur. Electronically signed by: Jose L Cisneros MD 05/29/2024 01:15 PM [facility]IDES
--- OUTSIDE RECORDS SUMMARY | 2024-05-28 12:26 | XMS_ITS ---
Author Organization [facility] Address [address] [place] [address] Care Team Providers Care Central Office Repairer Name Role Phone Monique White Primary Care Provider Arturo Brown Unavailable [phone] Allergies Allergen (clinical drug ingredient) Drug/Non Drug [...] Ordered Date Performed Result Body Sit e 98212-[id number] NAIL, 6 OR MORE 02/05/2024 N/A 35449-EYNY SKIN LESIONS, 2 TO 4 02/05/2024 N/A Encounters Encounter Location Date Provider Diagnosis [facility] [address] [place] [address] 02/05/2024 Arturo Simon Type 1 diabetes mellitus [...] INSTRUCTIONS.pdf) Pending Test Test Name Order Date [id number] NAIL, 6 OR MORE 02/05/2024 [id number] SKIN LESIONS, 2 TO 4 02/05/20 24 Next Appt Details Follow Up: prn, Reason: Provider Name:Arturo Simon , 08/08/2024 10:00:00 AM, [address] [place], [phone], Procedure Notes * Category Sub-Category Detail Notes Debride Nail 6-10 Nail debridement Performance o f this nail treatment by a nonprofessional would put this patients foot and overall health at risk. Therefore, nail debridement was performed extensively to reduce/remove overall nail length, girth, thickness, subungual debris, and necrotic tissue, by manual and/or electrical means through the use of a nail nipper and/or dremel-type carbon grinder, to a more viable healthy nail plate or bed tissue 6-10. Silver nitrate used for any petechial bleeding as necessary. Definitive antifungal treatment options have been reviewed and discussed with the patient. The patient chooses, no pharmaceutical tx - 41291 Keratoma Treatment Parring or Cutting o f Benign Hyperkeratotic Lesion(s) (-56) 2-4 Lesions - The Benign hyperkeratotic lesions, as described above were pared, and/or cut utilizing a sterile 15 blade, tissue nippers, and/or dremel - 57665 Progress Notes * Gerri SCHWARTZ RDOB:[birth year] (88 yo F)Acc No.[id number]:02/05/2024 Progress Note Patient:?Gerri SCHWARTZ R Provider:?Arturo Simon DPM :1935???Age:88 Y???Sex:Female D ate:02/05/2024 Address: [id number] Pcp:Monique White Subjective: * Chief Complaints: * [...] Hospitalization/Major Diagno stic Procedure:?[facility] 04[facility]2015[facility] / for medication 04[place] [place] A-fib 12/2015[facility] UTI 11/16/23 * Family History:?Mother: dece ased, [...] bike. ?Marital status: . 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 * Medications:?TakingToujeo Ma x SoloStar 300 UNIT/ML [...] use of a nail nipper and/or dremel-type carbon grinder, to a more viable healthy nail plate or bed tissue 6-10. Silver nitrate used for any petechial bleeding as necessary. Definitive antifungal treatment options have been reviewed and discussed with the patient. The patient chooses, no pharmaceutical tx - 71557.?Keratoma Treatment:?Parring or Cutting of Benign Hyperkeratotic Lesion(s)?(-56) 2-4 Lesions - The Benign hyperkeratotic lesions, as described above were pared, and/or cut utilizing a sterile 15 blade, tissue nippers, and/or dremel - 01045.? * Procedure Codes:?43318 DEBRI DE NAIL, 6 OR MORE, Modifiers: XS 37334 TRIM SKIN LESIONS, 2 TO 4, Modifiers: [...] Simon DPM Date:?2023 Generated for Awilda diggs/Lee/eTransmitting on:?05/28/2024 12:26 PM EST History and Physical Notes * [...]
--- OUTSIDE RECORDS SUMMARY | 2024-05-28 12:26 | XMS_ITS ---
Author Organization [facility] Address [address] [place] [phone] Care Team Providers Care Hot Wound Spring Production Supervisor Name Role Phone Monique White MD Primary Care Provider Yane Epps Jr, John Mckeon REASON FOR VISIT refill omeprazole MEDICATIONS Medication SIG (Take, Route, Frequency, Duration) Notes Start Date End Date Status Omeprazole 20 TAKE 1 CAPSULE BY MO UT TWICE DAILY for 90 days Active Encounters Encounter Location Date Provider Diagnosis [facility] [address] [place] [phone] 07/09/2023 John Epps Jr PLAN OF TREATMENT Medication Medication Name Sig Start Date Stop Date Notes Omeprazole 20 TAKE 1 CAPSULE BY MO UT TWICE DAILY for 90 days
--- OUTSIDE RECORDS SUMMARY | 2024-05-28 12:26 | XMS_ITS | Encounter Summary ---
Author Organization [facility] Address [address] [place] [id number] Care Team Providers Care Inspector Balance Truing Name Role Phone Torrey Kwok MD Primary Care Provider [phone] Encounter Details Date Type Department Care Team (Late st Contact Info) Description 05/16/2024 Lab Requisition [facility] - Main Lab [address] [facility] [email or web address] [address] Torrey Kwok MD [address] [place] [address] Heart failure, unspecified (CMS/HCC); Essential (primary) hypertension; Type 2 diabetes mellitus with diabetic chronic kidney disease (CMS/HCC) Social History Tobacco Use Types Packs/Day Years Used Date Smoking Tobacco: Never Assessed Comments Unknown Sex and Gender Information Value Date Recorded Sex Assigned at Not on file Legal Sex Female 9:02 AM EST Gender Identity Not on file Sexual Orientation Not on file documented as of this encounter Plan of Treatment Not on file documented as of this encounter Procedures Procedure Name Priority Date/Time Associated Diagnosis Comments COMPLETE BLOOD COUNT Routine 05/19/2024 7:33 AM EST Heart failure, unspecified (CMS/HCC) Essential (primary) hypertension Type 2 diabetes mellitus with diabetic chronic kidney disease (CMS/HCC) BASIC METABOLIC PANEL Routine 05/19/2024 7:33 AM EST Heart failure, unspecified (CMS/HCC) Essential (primary) hypertension Type 2 diabetes mellitus with diabetic chronic kidney disease (CMS/HCC) documented in this encounter Results * (ABNORMAL) Basic metabolic panel (05/19/2024 7:33 AM EST) Sodium 137 133 - 145 mmol/L LAB CHEMISTRY METHOD 05/19/2024 2:03 PM [facility] Potassium 3.7 3.5 - 5.5 mmol/L LAB CHEMISTRY METHOD 05/19/2024 2:03 PM [facility] Chloride 102 96 - 110 mmol/L LAB CHEMISTRY METHOD 05/19/2024 2:03 PM [facility] CO2 25 21 - 32 mmol/L LAB CHEMISTRY METHOD 05/19/2024 2:03 PM [facility] Anion Gap 10 3 - 11 LAB CHEMISTRY METHOD 05/19/2024 2:03 PM [facility] Glucose 92 70 - 100 mg/dL LAB CHEMISTRY METHOD 05/19/2024 2:03 PM [facility] BUN 23 5 - 25 mg/dL LAB CHEMISTRY METHOD 05/19/2024 2:03 PM [facility] Creatinine 0.97 0.50 - 1.10 mg/dL LAB CHEMISTRY METHOD 05/19/2024 2:03 PM [facility] eGFR 57(L) >=60 mL/min/1. 73m2 LAB CHEMISTRY METHOD 05/19/2024 2:03 PM [facility] Comment:Calculation based on the??Chronic Kidney Disease Epidemiology Collaboration (CKD-EPI) equation refit??without adjustment for race. BUN/Creatinine Ratio 23.7 LAB CHEMISTRY METHOD 05/19/2024 2:03 PM [facility] Calcium 8.8 8.5 - 10.5 mg/dL LAB CHEMISTRY METHOD 05/19/2024 2:03 PM [facility] Blood Venous blood specimen / Unknown Venipuncture / Unknown 05/19/2024 7:33 AM EST 05/19/2024 12:17 PM EST us Torrey Kwok MD LAB BLOOD ORDERABLES Final Resul t [facility] [address] [place] [address], * (ABNORMAL) Complete blood count (05/19/2024 7:33 AM EST) [facility] WBC 5.4 4.8 - 10.8 K/mcL LAB HEMETOLOGY METHOD 05/19/2024 1:26 PM [facility] RBC 3.50(L) 3.80 - 4.80 M/mcL LAB HEMETOLOGY METHOD 05/19/2024 1:26 PM [facility] Hemoglobin 11.1(L) 11.5 - 16.0 g/dL LAB HEMETOLOGY METHOD 05/19/2024 1:26 PM [facility] Hematocrit 35.7 35.0 - 47.0 % LAB HEMETOLOGY METHOD 05/19/2024 1:26 PM [facility] MCV 103.5(H) 79.0 - 98.0 FL LAB HEMETOLOGY METHOD 05/19/2024 1:26 PM [facility] MCH 32.2(H) 27.0 - 32.0 pcg LAB HEMETOLOGY METHOD 05/19/2024 1:26 PM [facility] MCHC 31.1(L) 32.0 - 37.0 g/dL LAB HEMETOLOGY METHOD 05/19/2024 1:26 PM [facility] RDW 20.0(H) 11.0 - 15.0 % LAB HEMETOLOGY METHOD 05/19/2024 1:26 PM [facility] Platelets 344 130 - 400 K/mcL LAB HEMETOLOGY METHOD 05/19/2024 1:26 PM [facility] MPV 10.8 7.0 - 11.0 FL LAB HEMETOLOGY METHOD 05/19/2024 1:26 PM [facility] NRBC 0.0 <1.0 % LAB HEMETOLOGY METHOD 05/19/2024 1:26 PM EST [facility] NRBC Absolute 0.00 <0.10 K/mcL LAB HEMETOLOGY METHOD 05/19/2024 1:26 PM EST [facility] Blood Venous blood specimen / Unknown Venipuncture / Unknown 05/19/2024 7:33 AM EST 05/19/2024 12:17 PM EST us Torrey Kwok MD LAB BLOOD ORDERABLES Final Resul t [facility] [address] [place] [address], documented in this encounter Visit Diagnoses Diagnosis Heart failure, unspecified (CMS/HCC) Heart failure, unspecified Essential (primary) hypertension Unspecified essential hypertension Type 2 diabetes mellitus with diabetic chronic kidney disease (CMS/HCC) documented in this encounter Care Teams Inspector Balance Truing Relationship Specialty Start Date End Date Torrey Kwok MD [address] [place] [address] [address] [place] [address] PCP - General Geriatric Medicine 04/25/24 documented as of this encounter
--- OUTSIDE RECORDS SUMMARY | 2024-05-28 12:26 | XMS_ITS | Encounter Summary ---
Author Organization [facility] Address [address] [place] [address] Care Team Providers Care Senior Warehouse Clerk Name Role Phone Torrey Kwok MD Primary Care Provider [phone] Encounter Details Date Type Department Care Team (Late st Contact Info) Description 04/29/2024 Lab Requisition [facility] - Main Lab [address] [facility] [place] [address] Torrey Kwok MD [address] [place] [address] Dysuria Social History Tobacco Use Types Packs/Day [...] Escherichia coli(A) ANDRE 05/01/2024 11:04 AM EST [facility] Urine Urine specimen from urinary [...] Escherichia coli Trimethoprim/Sulfamethoxazole ANDRE <=20 ug/ml: Susceptible us Torrey Kwok MD LAB MICROBIOLOGY - GENERAL ORDER GENET Final Result [facility] [address] [place] [address], [place] [phone] * Frost urine culture tube (04/28/2024 12:15 PM EST) Extra Tube Hold for add-ons. 04/29/2024 11:01 AM EST [facility] Comment:Auto resulted. Urine Urine specimen obtained by clean catch procedure / Unknown 04/28/2024 12:15 PM EST 04/29/2024 9:53 AM EST Torrey Kwok MD LAB URINE ORDERABLES Final Resul t [facility] [address] [place] [address], * (ABNORMAL) Urinalysis with reflex microscopic and culture (04/28/2024 12:15 PM EST) Specific [place]ones Urine 1.021 1.003 - 1.030 LAB URINALYSIS - AUTOMATED METHOD 04/29/2024 11:05 AM [facility] pH, Urine 5.5 5.0 - 8.0 pH LAB URINALYSIS - AUTOMATED METHOD 04/29/2024 11:05 AM [facility] Leukocytes, Urine Trace(A) Negative LAB URINALYSIS - AUTOMATED METHOD 04/29/2024 11:05 AM [facility] Nitrite, Urine Negative Negative LAB URINALYSIS - AUTOMATED METHOD 04/29/2024 11:05 AM [facility] Protein, Urine Trace <=Trace mg/dL LAB URINALYSIS - AUTOMATED METHOD 04/29/2024 11:05 AM [facility] Glucose, Urine >=1000(A) Negative mg/dL LAB URINALYSIS - AUTOMATED METHOD 04/29/2024 11:05 AM [facility] Ketones, Urine 15(A) Negative mg/dL LAB URINALYSIS - AUTOMATED METHOD 04/29/2024 11:05 AM [facility] Urobilinogen , Urine 0.2 0.2 - 1.0 mg/dL LAB URINALYSIS - AUTOMATED METHOD 04/29/2024 11:05 AM [facility] Bilirubin, Urine Negative Negative LAB URINALYSIS - AUTOMATED METHOD 04/29/2024 11:05 AM [facility] Blood, Urine Negative Negative LAB URINALYSIS - AUTOMATED METHOD 04/29/2024 11:05 AM [facility] RBC, Urine 0.8 0 - 4 /HPF LAB URINALYSIS - AUTOMATED METHOD 04/29/2024 11:05 AM [facility] WBC, Urine 12.6(H) 0 - 4 /HPF LAB URINALYSIS - AUTOMATED METHOD 04/29/2024 11:05 AM [facility] Squamous Epithelial, Urine 10 0 - 60 /LPF LAB URINALYSIS - AUTOMATED METHOD 04/29/2024 11:05 AM [facility] Bacteria, Urine Many(A) Negative /HPF LAB URINALYSIS - AUTOMATED METHOD 04/29/2024 11:05 AM [facility] Hyaline Casts, Urine 0.4 0 - 3 /LPF LAB URINALYSIS - AUTOMATED METHOD 04/29/2024 11:05 AM [facility] Urine Urine specimen from urinary conduit / Unknown Non-blood Collection / Unknown 04/28/2024 12:15 PM EST 04/29/2024 9:53 AM EST Torrey Kwok MD LAB URINE ORDERABLES Final Resul t [facility] [address] [place] [address], documented in this encounter Visit Diagnoses Diagnosis Dysuria documented in this encounter Care Teams Senior Warehouse Clerk Relationship Specialty Start Date End Date Torrey Kwok MD [address] [place] [address] [address] [place] [address] PCP - General Geriatric Medicine 04/25/24 documented as of this encounter
--- OUTSIDE RECORDS SUMMARY | 2024-05-28 12:26 | XMS_ITS | Encounter Summary ---
Author Organization [facility] Address [address] [place] [phone] Care Team Providers Care Export Agent Name Role Phone Torrey Kwok MD Primary Care Provider [phone] Encounter Details Date Type Department Care Team (Late st Contact Info) Description 04/30/[address] [facility] - Main Lab [address] [facility] [place] [address] Torrey Kwok MD [address] [place] [address] Type 2 diabetes mellitus without complications (CMS/HCC) [...] LAB HEMETOLOGY METHOD 04/30/2024 2:51 PM EST [facility] RBC 3.40(L) 3.80 - 4.80 M/mcL LAB HEMETOLOGY METHOD 04/30/2024 2:51 PM EST [facility] Hemoglobin 10.7(L) 11.5 - 16.0 g/dL LAB HEMETOLOGY METHOD 04/30/2024 2:51 PM EST [facility] Hematocrit 34.7(L) 35.0 - 47.0 % LAB HEMETOLOGY METHOD 04/30/2024 2:51 PM [facility] MCV 101.5(H) 79.0 - 98.0 FL LAB HEMETOLOGY METHOD 04/30/2024 2:51 PM EST [facility] MCH 31.3 27.0 - 32.0 pcg LAB HEMETOLOGY METHOD 04/30/2024 2:51 PM [facility] MCHC 30.8(L) 32.0 - 37.0 g/dL LAB HEMETOLOGY METHOD 04/30/2024 2:51 PM [facility] RDW 17.1(H) 11.0 - 15.0 % LAB HEMETOLOGY METHOD 04/30/2024 2:51 PM [facility] Platelets 391 130 - 400 K/mcL LAB HEMETOLOGY METHOD 04/30/2024 2:51 PM [facility] MPV 10.8 7.0 - 11.0 FL LAB HEMETOLOGY METHOD 04/30/2024 2:51 PM [facility] NRBC 0.5 <1.0 % LAB HEMETOLOGY METHOD 04/30/2024 2:51 PM [facility] NRBC Absolute 0.03 <0.10 K/mcL LAB HEMETOLOGY METHOD 04/30/2024 2:51 PM [facility] Blood Venous blood specimen / Unknown Venipuncture / Unknown 04/30/2024 6:31 AM EST 04/30/2024 1:53 PM EST us Torrey Kwok MD LAB BLOOD ORDERABLES Final Resul t [facility] [address] [place] [address], documented in this encounter Visit Diagnoses Diagnosis Type 2 diabetes mellitus without complications (CMS/HCC) documented in this encounter Care Teams Export Agent Relationship Specialty Start Date End Date Torrey Kwok MD [address] [place] [address] [address] [place] [address] PCP - General Geriatric Medicine 04/25/24 documented as of this encounter
--- OUTSIDE RECORDS SUMMARY | 2024-05-28 12:26 | XMS_ITS | Encounter Summary ---
Author Organization [facility] Address [address] [place] [address] Phone Care Team Providers Care Internet Marketing Manager Name Role Phone Monique White MD Primary Care Provider [phone] Encounter Details Date Type Department Care Team (Late st Contact Info) Description 06/07/2021 Telephone [facility] [address] [place] [address] Sohail Penaloza MD Social History [...] with you. Please call her back at [phone] Thank you documented in this encounter Plan of Treatment Not on file documented as of this encounter Visit Diagnoses Not on filedocumented in this encounter Care Teams Internet Marketing Manager Relationship Specialty Start Date End Date Monique White MD [facility] [address] [place] PCP - General Internal Medicine 03/11/21 documented as of this encounter
--- OUTSIDE RECORDS SUMMARY | 2024-05-28 12:27 | XMS_ITS | Encounter Summary ---
Author Organization [facility] Address [address] [place] [address] Care Team Providers Care Sole Stapler Welt Name Role Phone Torrey Kwok MD Primary Care Provider [phone] Encounter Details Date Type Department Care Team (Late st Contact Info) Description 05/05/2024 Lab Requisition [facility] - Main Lab [address] [email or web address] [address] Torrey Kwok MD [address] [place] [address] Chronic kidney disease, stage 3 unspecified (CMS/HCC); [...] LAB CHEMISTRY METHOD 05/05/2024 2:05 PM EST [facility] Potassium 5.0 3.5 - 5.5 mmol/L LAB CHEMISTRY METHOD 05/05/2024 2:05 PM EST [facility] Comment:Hemolysis present Chloride 99 96 - 110 mmol/L LAB CHEMISTRY METHOD 05/05/2024 2:05 PM [facility] CO2 26 21 - 32 mmol/L LAB CHEMISTRY METHOD 05/05/2024 2:05 PM [facility] Anion Gap 9 3 - 11 LAB CHEMISTRY METHOD 05/05/2024 2:05 PM [facility] Glucose 141(H) 70 - 100 mg/dL LAB CHEMISTRY METHOD 05/05/2024 2:05 PM [facility] BUN 23 5 - 25 mg/dL LAB CHEMISTRY METHOD 05/05/2024 2:05 PM [facility] Creatinine 1.08 0.50 - 1.10 mg/dL LAB CHEMISTRY METHOD 05/05/2024 2:05 PM [facility] eGFR 50(L) >=60 mL/min/1. 73m2 LAB CHEMISTRY METHOD 05/05/2024 2:05 PM [facility] Comment:Calculation based on the??Chronic Kidney Disease Epidemiology Collaboration (CKD-EPI) equation refit??without adjustment for race. BUN/Creatinine Ratio 21.3 LAB CHEMISTRY METHOD 05/05/2024 2:05 PM [facility] Calcium 8.3(L) 8.5 - 10.5 mg/dL LAB CHEMISTRY METHOD 05/05/2024 2:05 PM [facility] Blood Venous blood specimen / Unknown Venipuncture / Unknown 05/05/2024 5:43 AM EST 05/05/2024 11:40 AM EST us Torrey Kwok MD LAB BLOOD ORDERABLES Final Resul t [facility] [address] [place] [address], documented in this encounter Visit Diagnoses Diagnosis Chronic kidney disease, stage 3 unspecified (CMS/HCC) Type 2 diabetes mellitus with diabetic chronic kidney disease (CMS/HCC) documented in this encounter Care Teams Sole Stapler Welt Relationship Specialty Start Date End Date Torrey Kwok MD [address] [place] [address] [address] [place] [address] PCP - General Geriatric Medicine 04/25/24 documented as of this encounter
--- OUTSIDE RECORDS SUMMARY | 2024-05-28 12:27 | XMS_ITS | Clinical Summary ---
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) 05/16/2024 Lab Requisition [facility] Main Lab [address] [place] [phone] Torrey Kwok MD Heart failure, unspecified (CMS/HCC); Essential (primary) hypertension; Type 2 diabetes mellitus with diabetic chronic kidney disease (CMS/HCC) 05/09/2024 Lab Requisition [facility] Lab [address] [place] [phone] Torrey Kwok MD 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); Heart failure, unspecified (CMS/HCC); Essential (primary) hypertension; Type 2 diabetes mellitus with diabetic chronic kidney disease (CMS/HCC) 05/09/2024 Lab Requisition [facility] - Main Lab [address] [place] [phone] Torrey Kwok MD 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); Heart failure, unspecified (CMS/HCC); Essential (primary) hypertension; Type 2 diabetes mellitus with diabetic chronic kidney disease ([facility]/HCC) 05/06/2024 Lab Requisition [facility] Main Lab [address] [place] [phone] Torrye Kwok MD Type 2 diabetes mellitus without complications ([facility]/HCC) 05/05/2024 Lab Requisition [facility] Lab [address] [place] [phone] Torrey Kwok MD Chronic kidney disease, stage 3 unspecified ([facility]); Type 2 diabetes mellitus with diabetic chronic kidney disease ([facility]) 05/01/2024 Lab Requisition [facility] Lab [address] [place] [phone] Torrey Kwok MD Type 2 diabetes mellitus without complications ([facility]/HCC) 04/30/2024 Lab Requisition [facility] Lab [address] [place] [phone] Torrey Kwok MD Type 2 diabetes mellitus without complications ([facility]) 04/29/2024 Lab Requisition [facility] Lab [address] [place] [phone] Torrey Kwok MD Dysuria 04/25/2024 Lab Requisition [facility] Lab [address] [place] [phone] Torrey Kwok MD Vitamin D deficiency, unspecified; 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 ([facility]); Heart failure, unspecified ([facility]); Essential (primary) hypertension from Last 3 Months Social History Tobacco Use Types Packs/Day Years Used Date Smoking Tobacco: Never Assessed Comments Unknown Sex and Gender Information Value Date Recorded Sex Assigned at Not on file Legal Sex Female 9:02 AM EST Gender Identity Not on file Sexual Orientation Not on file Plan of Treatment Health Maintenance Due Date Last Done Comments Diabetes: Annual Foot Exam 1945 Diabetes: Annual Retina Eye Exam 1945 DTaP,Tdap,and Td Vaccines (1 - Tdap) 08/17/1955 Pneumococcal Vaccine: 50+ Years (1 of 2 - PCV) 08/17/1955 Zoster Vaccines (1 of 2) 1986 RSV Immunization Patients 60+ Years Old (1 - 1-dose 75+ series) 08/17/2011 COVID-19 Vaccine (2 - season) 2023 02/15/2021 Influenza Vaccine (#1) 2023 , 01/28/2019, 01/07/2018, Additional history exists Cholesterol Screening (Lipid Panel) 04/25/2024 Depression Screening 04/25/2024 Falls Risk Assessment 04/25/2024 Medicare Annual Wellness Visit 04/25/2024 Osteoporosis Screening (Bone Density Screening) 04/25/2024 Social Influencers of Health Screening 04/25/2024 Diabetes: Blood Sugar Control Test (HGBA1C) 10/23/2024 04/25/2024 Hypertension/CHF/CAD Annual BMP Blood Test 05/26/2025 05/26/2024, 05/26/2024, 05/19/2024, Additional history exists HIB Vaccines Aged Out No longer eligi [...] patient's age to complete this topic Meningococcal B Vacine Aged Out No lo nger eligible based on patient's age to complete this topic RSV Immunization Patients Under 20 months Aged Out No longer eligible based on patient's age to complete this topic Varicella Vaccines Aged Out No longer eligible based on patient's age to complete this topic Procedures Procedure Name Priority Date/Time Associated Diagnosis Comments COMPREHENSIVE METABOLIC PANEL Routine 05/26/2024 5:59 AM EST Type 2 diabetes mellitus with diabetic chronic kidney disease (CMS/HCC) Essential (primary) hypertension Heart failure, unspecified (CMS/HCC) 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) B-TYPE NATRIURETIC PEPTIDE Routine 05/26/2024 5:59 AM EST Type 2 diabetes mellitus with diabetic chronic kidney disease (CMS/HCC) Essential (primary) hypertension Heart failure, unspecified (CMS/HCC) 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) BASIC METABOLIC PANEL Routine 05/26/2024 5:59 AM EST Type 2 diabetes mellitus with diabetic chronic kidney disease (CMS/HCC) Essential (primary) hypertension Heart failure, unspecified (CMS/HCC) 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) COMPLETE BLOOD COUNT Routine 05/26/2024 5:59 AM EST Type 2 diabetes mellitus with diabetic chronic kidney disease (CMS/HCC) Essential (primary) hypertension Heart failure, unspecified (CMS/HCC) 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) BASIC METABOLIC PANEL Routine 05/19/2024 7:33 AM EST Heart failure, unspecified (CMS/HCC) Essential (primary) hypertension Type 2 diabetes mellitus with diabetic chronic kidney disease (CMS/HCC) COMPLETE BLOOD COUNT Routine 05/19/2024 7:33 AM EST Heart failure, unspecified (CMS/HCC) Essential (primary) hypertension Type 2 diabetes mellitus with diabetic chronic kidney disease (CMS/HCC) BASIC METABOLIC PANEL Routine 05/12/2024 5:48 AM EST 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) Heart failure, unspecified (CMS/HCC) Essential (primary) hypertension Type 2 diabetes mellitus with diabetic chronic kidney disease (CMS/HCC) COMPLETE BLOOD COUNT Routine 05/12/2024 5:48 AM EST 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 WBC 10.4 4.8 - 10.8 K/mcL LAB HEMETOLOGY METHOD 05/26/2024 11:[address] [facility] RBC 3.30(L) 3.80 - 4.80 M/mcL LAB HEMETOLOGY METHOD 05/26/2024 11:12 AM EST [facility] Hemoglobin 10.7(L) 11.5 - 16.0 g/dL LAB HEMETOLOGY METHOD 05/26/2024 11:[address] [facility] Hematocrit 34.0(L) 35.0 - 47.0 % LAB HEMETOLOGY METHOD 05/26/2024 11:12 AM EST [facility] MCV 102.1(H) 79.0 - 98.0 FL LAB HEMETOLOGY METHOD 05/26/2024 11:[address] [facility] MCH 32.1(H) 27.0 - 32.0 pcg LAB HEMETOLOGY METHOD 05/26/2024 11:12 AM EST [facility] MCHC 31.5(L) 32.0 - 37.0 g/dL LAB HEMETOLOGY METHOD 05/26/2024 11:[address] [facility] RDW 19.8(H) 11.0 - 15.0 % LAB HEMETOLOGY METHOD 05/26/2024 11:[address] [facility] Platelets 418(H) 130 - 400 K/mcL LAB HEMETOLOGY METHOD 05/26/2024 11:12 AM EST [facility] MPV 10.0 7.0 - 11.0 FL LAB HEMETOLOGY METHOD 05/26/2024 11:12 AM EST [facility] NRBC 0.0 <1.0 % LAB HEMETOLOGY METHOD 05/26/2024 11:[address] [facility] NRBC Absolute 0.00 <0.10 K/mcL LAB HEMETOLOGY METHOD 05/26/2024 11:[address] [facility] Blood Venous blood specimen / Unknown Venipuncture / Unknown 05/26/2024 5:59 AM EST 05/26/2024 11:00 AM EST us Torrey Kwok MD LAB BLOOD ORDERABLES Final Resul t [facility] [address] [place] [address], * (ABNORMAL) B-type natriuretic peptide (05/26/2024 5:59 AM EST) BNP 320(H) <=100 pcg/mL LAB CHEMISTRY METHOD 05/26/2024 1:[address] [facility] Blood Venous blood specimen / Unknown Venipuncture / Unknown 05/26/2024 5:59 AM EST 05/26/2024 11:00 AM EST us Torrey Kwok MD LAB BLOOD ORDERABLES Final Resul t [facility] [address] [place] [address], [place] [phone] * (ABNORMAL) Comprehensive metabolic panel (05/26/2024 5:59 AM EST) Only the most recent of2 resultswithin the time period is included. Pathologist [facility] Sodium 141 133 - 145 mmol/L LAB CHEMISTRY METHOD 05/26/2024 11:[address] [facility] Potassium 3.5 3.5 - 5.5 mmol/L LAB CHEMISTRY METHOD 05/26/2024 11:[address] [facility] Chloride 101 96 - 110 mmol/L LAB CHEMISTRY METHOD 05/26/2024 11:[address] [facility] CO2 26 21 - 32 mmol/L LAB CHEMISTRY METHOD 05/26/2024 11:[address] [facility] Anion Gap 14(H) 3 - 11 LAB CHEMISTRY METHOD 05/26/2024 11:[address] [facility] Glucose 200(H) 70 - 100 mg/dL LAB CHEMISTRY METHOD 05/26/2024 11:[address] [facility] BUN 35(H) 5 - 25 mg/dL LAB CHEMISTRY METHOD 05/26/2024 11:[address] [facility] Creatinine 1.16(H) 0.50 - 1.10 mg/dL LAB CHEMISTRY METHOD 05/26/2024 11:56 AM EST [facility] eGFR 46(L) >=60 mL/min/1. 73m2 LAB CHEMISTRY METHOD 05/26/2024 11:[address] [facility] Comment:Calculation based on the??Chronic Kidney Disease Epidemiology Collaboration (CKD-EPI) equation refit??without adjustment for race. BUN/Creatinine Ratio 30.2 LAB CHEMISTRY METHOD 05/26/2024 11:[address] [facility] Calcium 8.9 8.5 - 10.5 mg/dL LAB CHEMISTRY METHOD 05/26/2024 11:[address] [facility] AST (SGOT) 21 10 - 42 unit/L LAB CHEMISTRY METHOD 05/26/2024 11:[address] [facility] ALT (SGPT) 20 10 - 60 unit/L LAB CHEMISTRY METHOD 05/26/2024 11:[address] [facility] Alkaline Phosphatase 146(H) 42 - 121 unit/L LAB CHEMISTRY METHOD 05/26/2024 11:[address] [facility] Total Protein 6.8 6.0 - 8.0 g/dL LAB CHEMISTRY METHOD 05/26/2024 11:[address] [facility] Albumin 3.6 3.2 - 5.0 g/dL LAB CHEMISTRY METHOD 05/26/2024 11:[address] [facility] Total Bilirubin 0.6 0.0 - 1.4 mg/dL LAB CHEMISTRY METHOD 05/26/2024 11:[address] [facility] Blood Venous blood specimen / Unknown Venipuncture / Unknown 05/26/2024 5:59 AM EST 05/26/2024 11:00 AM EST us Torrey Kwok MD LAB BLOOD ORDERABLES Final Resul t [facility] [address] [place] [address], * (ABNORMAL) Basic metabolic panel (05/26/2024 5:59 AM EST) Only the most recent of6 resultswithin the time period is included. Sodium 141 133 - 145 mmol/L LAB CHEMISTRY METHOD 05/26/2024 11:[address] [facility] Potassium 3.5 3.5 - 5.5 mmol/L LAB CHEMISTRY METHOD 05/26/2024 11:[address] [facility] Chloride 101 96 - 110 mmol/L LAB CHEMISTRY METHOD 05/26/2024 11:[address] [facility] CO2 26 21 - 32 mmol/L LAB CHEMISTRY METHOD 05/26/2024 11:[address] [facility] Anion Gap 14(H) 3 - 11 LAB CHEMISTRY METHOD 05/26/2024 11:[address] [facility] Glucose 200(H) 70 - 100 mg/dL LAB CHEMISTRY METHOD 05/26/2024 11:[address] [facility] BUN 35(H) 5 - 25 mg/dL LAB CHEMISTRY METHOD 05/26/2024 11:[address] [facility] Creatinine 1.16(H) 0.50 - 1.10 mg/dL LAB CHEMISTRY METHOD 05/26/2024 11:[address] [facility] eGFR 46(L) >=60 mL/min/1. 73m2 LAB CHEMISTRY METHOD 05/26/2024 11:[address] [facility] Comment:Calculation based on the??Chronic Kidney Disease Epidemiology Collaboration (CKD-EPI) equation refit??without adjustment for race. BUN/Creatinine Ratio 30.2 LAB CHEMISTRY METHOD 05/26/2024 11:[address] [facility] Calcium 8.9 8.5 - 10.5 mg/dL LAB CHEMISTRY METHOD 05/26/2024 11:[address] [facility] Blood Venous blood specimen / Unknown Venipuncture / Unknown 05/26/2024 5:59 AM EST 05/26/2024 11:00 AM EST us Torrey Kwok MD LAB BLOOD ORDERABLES Final Resul t [facility] [address] [place] [address], [place] [phone] * (ABNORMAL) Urinalysis with reflex microscopic and culture (04/28/2024 12:15 PM EST) Specific [facility] Urine 1.021 1.003 - 1.030 LAB URINALYSIS - AUTOMATED METHOD 04/29/2024 11:[address] [facility] pH, Urine 5.5 5.0 - 8.0 pH LAB URINALYSIS - AUTOMATED METHOD 04/29/2024 11:[address] [facility] Leukocytes, Urine Trace(A) Negative LAB URINALYSIS - AUTOMATED METHOD 04/29/2024 11:[address] [facility] Nitrite, Urine Negative Negative LAB URINALYSIS - AUTOMATED METHOD 04/29/2024 11:[address] [facility] Protein, Urine Trace <=Trace mg/dL LAB URINALYSIS - AUTOMATED METHOD 04/29/2024 11:[address] [facility] Glucose, Urine >=1000(A) Negative mg/dL LAB URINALYSIS - AUTOMATED METHOD 04/29/2024 11:[address] [facility] Ketones, Urine 15(A) Negative mg/dL LAB URINALYSIS - AUTOMATED METHOD 04/29/2024 11:[address] [facility] Urobilinogen , Urine 0.2 0.2 - 1.0 mg/dL LAB URINALYSIS - AUTOMATED METHOD 04/29/2024 11:[address] [facility] Bilirubin, Urine Negative Negative LAB URINALYSIS - AUTOMATED METHOD 04/29/2024 11:[address] [facility] Blood, Urine Negative Negative LAB URINALYSIS - AUTOMATED METHOD 04/29/2024 11:[address] [facility] RBC, Urine 0.8 0 - 4 /HPF LAB URINALYSIS - AUTOMATED METHOD 04/29/2024 11:[address] [facility] WBC, Urine 12.6(H) 0 - 4 /HPF LAB URINALYSIS - AUTOMATED METHOD 04/29/2024 11:[address] [facility] Squamous Epithelial, Urine 10 0 - 60 /LPF LAB URINALYSIS - AUTOMATED METHOD 04/29/2024 11:[address] [facility] Bacteria, Urine Many(A) Negative /HPF LAB URINALYSIS - AUTOMATED METHOD 04/29/2024 11:[address] [facility] Hyaline Casts, Urine 0.4 0 - 3 /LPF LAB URINALYSIS - AUTOMATED METHOD 04/29/2024 11:[address] [facility] Urine Urine specimen from urinary conduit / Unknown Non-blood Collection / Unknown 04/28/2024 12:15 PM EST 04/29/2024 9:53 AM EST us Torrey Kwok MD LAB URINE ORDERABLES Final Resul t Performing Organization Address City/[facility]/ZIP Co de Phone Number [facility] [address] [place] [address], [place] [phone] * Frost urine culture tube (04/28/2024 12:15 PM EST) Extra Tube Hold for add-ons. 04/29/2024 11:[address] [facility] Comment:Auto resulted. Urine Urine specimen obtained by clean catch procedure / Unknown 04/28/2024 12:15 PM EST 04/29/2024 9:53 AM EST us Torrey Kwok MD LAB URINE ORDERABLES Final Resul t Performing Organization Address [facility]/ZIP Co de Phone Number [facility] [address] [place] [address], [place] [phone] * (ABNORMAL) Culture urine (04/28/2024 12:15 PM EST) Culture, Urine >100,000 CFU/mL Escherichia coli(A) ANDRE 05/01/2024 11:04 AM EST [facility] Urine Urine specimen [...] Susceptible Torrey Kwok MD LAB MICROBIOLOGY - GENERAL ORDER GENET Final Result [facility] [address] [place] [address], * (ABNORMAL) Vitamin D 25 hydroxy (04/25/2024 5:49 AM EST) Vit D, 25-Hydroxy 25.4(L) 30.0 - 80.0 ng/mL LAB CHEMISTRY METHOD 04/25/2024 10:35 AM EST [facility] Blood Venous blood specimen / Unknown Venipuncture / Unknown 04/25/2024 5:49 AM EST 04/25/2024 9:21 AM EST us Torrey Kwok MD LAB BLOOD ORDERABLES Final Resul t Performing Organization Address City/[facility]/ZIP Co de Phone Number [facility] [address] [place] [address], [place] [phone] * Thyroid stimulating hormone (04/25/2024 5:49 AM EST) TSH 3.04 0.40 - 4.00 mcIU/mL LAB CHEMISTRY METHOD 04/25/2024 10:35 AM EST [facility] Blood Venous blood specimen / Unknown Venipuncture / Unknown 04/25/2024 5:49 AM EST 04/25/2024 9:21 AM EST us Torrey Kwok MD LAB BLOOD ORDERABLES Final Resul t Performing Organization Address [facility]/ZIP Co de Phone Number [facility] [address] [place] [address], [place] [phone] * (ABNORMAL) Hemoglobin A1c (04/25/2024 5:49 AM EST) Hemoglobin A1C 8.7(H) <6.5 % LAB CHEMISTRY METHOD 04/25/2024 1:33 PM EST [facility] Mean Bld Glu Estim. 203 mg/dL LAB CHEMISTRY METHOD 04/25/2024 1:33 PM EST [facility] Blood Venous blood specimen / Unknown Venipuncture / Unknown 04/25/2024 5:49 AM EST 04/25/2024 9:21 AM EST us Torrey Kwok MD LAB BLOOD ORDERABLES Final Resul t [facility] [address] [place] [address], [place] [phone] * Folate (04/25/2024 5:49 AM EST) [facility] Folate 12.8 2.8 - 17.0 ng/ml LAB CHEMISTRY METHOD 04/25/2024 11:26 AM EST [facility] Blood Venous blood specimen / Unknown Venipuncture / Unknown 04/25/2024 5:49 AM EST 04/25/2024 9:21 AM EST Torrey Kwok MD LAB BLOOD ORDERABLES Final Resul t [facility] [address] [place] [address], [place] [phone] * Vitamin B12 (04/25/2024 5:49 AM EST) [facility] Vitamin B-12 711 250 - 900 pcg/mL LAB CHEMISTRY METHOD 04/25/2024 11:26 AM EST [facility] Blood Venous blood specimen / Unknown Venipuncture / Unknown 04/25/2024 5:49 AM EST 04/25/2024 9:21 AM EST us Torrey Kwok MD LAB BLOOD ORDERABLES Final Resul t [facility] [address] [place] [address], [place] [phone] from Last 3 Months Insurance MEDICARE [facility] Care Teams Chief Accounting Officer Relationship Specialty Start Date End Date Torrey Kwok MD [address] [place] [address] [address] [place] [address] PCP - General Geriatric Medicine 04/25/24
--- OUTSIDE RECORDS SUMMARY | 2024-05-28 12:27 | XMS_ITS | Patient Health Record ---
Author Organization [facility] Address [address] [facility] [place] [address] Care Team Providers Care Geoscience Laboratory Technician Name Role Phone Monique White Primary Care Provider Arturo Brown Unavailable [phone] Antonio Lewis Unavailable [phone] Allergies Allergen (clinical drug ingredient) Drug/Non Drug [...] Problem Acquired hammer toe of right foot (6768476835352336 ) Other hammer toe(s) (acquired), right foot (M20.41) Active confirmed Problem Acquired hammer toe of left foot (5627173776154544 ) Other hammer toe(s) (acquired), left foot (M20.42) Active confirmed Problem Polyneuropathy due to diabetes mellitus type I (894553513) Type 1 diabetes mellitus with diabetic polyneuropathy (E10.42) Active confirmed Vital Signs Blood pressure diastolic 84 mm Hg 12/04/2023 Height 4 ft 10 in in 02/05/2024 Blood pressure systolic 128 mm Hg 12/04/2023 Weight 129 lbs 02/05/2024 BMI 26.96 kg/m2 02/05/2024 Procedures Procedure Date Ordered Date Performed Result Body Sit e 47998-Ymsufzmaq, Toes 06/28/2023 N/A 14098-CERJMXH NAIL, 6 OR MORE 09/21/2023 N/A 76412-Volpppoo Plate 09/21/2023 N/A 09972-KDJQ SKIN LESIONS, 2 TO 4 09/21/2023 N/A 01699-CXXXSQB NAIL, 6 OR MORE 12/04/2023 N/A 47799-CMZQ SKIN LESIONS, 2 TO 4 12/04/2023 N/A 61234-FJUFPQF NAIL, 6 OR MORE 02/05/2024 N/A 21183-YMZI SKIN LESIONS, 2 TO 4 02/05/2024 N/A Encounters Encounter Location Date Provider Diagnosis [address] [address] 06/28/2023 Antonio Lewis Type 1 diabetes mellitus with diabetic polyneuropathy E10.42 ; Closed fracture of right foot, initial encounter S92.901A ; Pain in right foot M79.671 and Closed nondisplaced fracture of middle phalanx of lesser toe of right foot, initial encounter S92.524A [address] [address] 09/21/2023 Arturo Simon Type 1 diabetes mellitus with diabetic polyneuropathy E10.42 ; Tinea unguium B35.1 and Ingrown nail L60.[address] [address] 12/04/2023 Arturo Simon Type 1 diabetes mellitus with diabetic polyneuropathy E10.42 and Tinea unguium B35.[address] [address] 02/05/2024 Arturo Simon Type 1 diabetes mellitus with diabetic polyneuropathy E10.42 ; Onychomycosis B35.1 ; Other hammer toe(s) (acquired), right foot M20.41 and Other hammer toe(s) (acquired), left foot M20.[address] [address] 08/01/2023 Arturo Simon [address] [address] 05/05/2024 Arturo Simon Assessments Encounter Date Diagnosis (ICD Code) Assessment Notes Treatment Notes Treatment Clinical Notes Section Notes 06/28/2023 Type 1 diabetes mellitus with diabetic [...] X ray : Foot, right 3V 06/28/2023 23282-EQPKPMT NAIL, 6 OR MORE 05/22/2023 17014-IBGOXYK NAIL, 6 OR MORE 12/12/2022 87869-UPYVIUC NAIL, 6 OR MORE 03/06/2023 92445-MUPZDEJ NAIL, 6 OR MORE 01/10/2022 65558-LBZOGYM NAIL, 6 OR MORE 04/18/2022 88319-XXBCOOD NAIL, 6 OR MORE 07/11/2022 69502-IZPAWDH NAIL, 6 OR MORE 10/03/2022 57071-CLPCPZI NAIL, 6 OR MORE 09/21/2023 08448-AVLKQBP NAIL, 6 OR MORE 12/04/2023 60416-BGVKFRP NAIL, 6 OR MORE 02/05/2024 99469-VRRBKHM NAIL, 6 OR MORE 07/10/2017 48357-JSRSSLM NAIL, 6 OR MORE 10/09/2017 35648-AOOCIBX NAIL, 6 OR MORE 01/08/2018 13849-GSDICQN NAIL, 6 OR MORE 04/30/2018 88054-BNIFQFI NAIL, 6 OR MORE 07/30/2018 51168-NAXLDUY NAIL, 6 OR MORE 10/29/2018 13103-PMSTKKZ NAIL, 6 OR MORE 02/04/2019 46759-YKSLKAF NAIL, 6 OR MORE 05/13/2019 22480-NBJXXUY NAIL, 6 OR MORE 08/12/2019 73660-KOVPWXB NAIL, 6 OR MORE 11/11/2019 04561-EWZAIVW NAIL, 6 OR MORE 02/17/2020 09504-LBGUTQZ NAIL, 6 OR MORE 05/25/2020 24962-PGJITFA NAIL, 6 OR MORE 08/24/2020 79663-ECURCYV NAIL, 6 OR MORE 11/23/2020 35942-AFLKUHG NAIL, 6 OR MORE 02/22/2021 79779-IDSOSNZ NAIL, 6 OR MORE 05/24/2021 75751-DYZCSYO NAIL, 6 OR MORE 10/11/2021 72928-DBJFTTU NAIL, 6 OR MORE 10/06/2014 83197-IOKEOHG NAIL, 6 OR MORE 06/10/2013 47142-FVOZVUJ NAIL, 6 OR MORE 03/17/2014 79984-FRUAXDO NAIL, 6 OR MORE 06/23/2014 61663-AIWAPEF NAIL, 6 OR MORE 01/05/2015 78466-GHVLMUN NAIL, 6 OR MORE 04/20/2015 83723-LLMRSYQ NAIL, 6 OR MORE 07/20/2015 65608-JMABKDT NAIL, 6 OR MORE 10/26/2015 53996-WBJPERF NAIL, 6 OR MORE 01/25/2016 11165-TUPFSUP NAIL, 6 OR MORE 05/23/2016 35474-SKZKFUI NAIL, 6 OR MORE 08/25/2016 55038-WLBYCIL NAIL, 6 OR MORE 12/05/2016 32518-MFOZPFV NAIL, 6 OR MORE 03/06/2017 52034-QFJPBHW NAIL, 6 OR MORE 12/27/2010 88661-PBYFRKT NAIL, 6 OR MORE 03/21/2011 53132-PFWEDIZ NAIL, 6 OR MORE 06/13/2011 57224-HUHZZDT NAIL, 6 OR MORE 09/12/2011 65394-TXEKREN NAIL, 6 OR MORE 12/19/2011 89316-WTJOCGB NAIL, 6 OR MORE 03/05/2012 42767-GTBRPHY NAIL, 6 OR MORE 05/31/2012 98500-KSGJLEX NAIL, 6 OR MORE 08/27/2012 67718-AHCAPWL NAIL, 6 OR MORE 12/10/2012 47546-CYSISJJ NAIL, 6 OR MORE 03/11/2013 81610-ZQLEVXB NAIL, 6 OR MORE 09/16/2013 20955-DHKOCCM NAIL, 6 OR MORE 01/06/2014 14858-Cwagjlvh Plate 01/06/2014 85246-Yujkaszf Plate 09/16/2013 84904-Vdajapqu Plate 05/31/2012 06929-Hbaxfzei Plate 06/13/2011 19839-Asouolkb Plate 03/21/2011 28205-Evdoyqjp Plate 12/05/2016 25346-Zzzngnmi Plate 07/10/2017 09508-Uoljjexd Plate 07/20/2015 95244-Eliqocqv Plate 01/05/2015 54984-Lkoqhvka Plate 08/27/2012 48524-Syabbgzy Plate 03/17/2014 25608-Ludzqysf Plate 10/06/2014 27588-Hrehozkd Plate 09/21/2023 25142-Eniwteed Plate Each Additional 10048-Rkzfcgzm Plate Each Additional 01/2014 62669-Eoqvigoy Plate Each Additional 63434 I&D ABSCESS- SIMPLE,SINGLE 012 78659 I&D ABSCESS- SIMPLE,SINGLE 011 13378 I&D ABSCESS- SIMPLE,SINGLE 021 29168-BTHX SKIN LESIONS, 2 TO 4 09/21/19 24 26916-GSXH SKIN LESIONS, 2 TO 4 02/05/20 24 63358-QFXP SKIN LESIONS, 2 TO 4 12/04/19 24 81833-LQTK SKIN LESIONS, 2 TO 4 10/04/19 23 81423-CSDJ SKIN LESIONS, 2 TO 4 07/12/19 23 31898-HUHZ SKIN LESIONS, 2 TO 4 04/18/19 23 63236-QHPH SKIN LESIONS, 2 TO 4 01/11/20 37038-BDCZ SKIN LESIONS, 2 TO 4 03/06/20 23 28861-QZKU SKIN LESIONS, 2 TO 4 12/13/19 23 58640-IDNJ SKIN LESIONS, 2 TO 4 05/22/19 24 62660-AEAB SKIN LESIONS, 2 TO 4 10/12/19 54475-NHDT SKIN LESIONS, 2 TO 4 05/24/19 22 39725-ECFG SKIN LESIONS, 2 TO 4 02/23/20 55892-KCNU SKIN LESIONS, 2 TO 4 11/24/19 21 18874-NRKU SKIN LESIONS, 2 TO 4 08/25/19 21 15394-KHKG SKIN LESIONS, 2 TO 4 05/25/19 21 78257-RIUO SKIN LESIONS, 2 TO 4 02/17/20 20 62089-JVRG SKIN LESIONS, 2 TO 4 11/11/19 28379-NQKO SKIN LESIONS, 2 TO 4 08/12/19 80571-LNDP SKIN LESIONS, 2 TO 4 05/13/19 20 55432-BKFS SKIN LESIONS, 2 TO 4 02/05/20 19 30309-XDNY SKIN LESIONS, 2 TO 4 10/30/19 19 69707-PCXP SKIN LESIONS, 2 TO 4 07/31/19 19 94001-OPLC SKIN LESIONS, 2 TO 4 04/30/19 19 61841-LSER SKIN LESIONS, 2 TO 4 01/09/20 18 62503-VEIU SKIN LESIONS, 2 TO 4 10/10/19 18 48222-BCYG SKIN LESIONS, 2 TO 4 05/31/19 13 96647-VFRQ SKIN LESIONS, 2 TO 4 03/05/20 12 11672-GSYV SKIN LESIONS, 2 TO 4 12/19/19 12 76317-CUDE SKIN LESIONS, 2 TO 4 08/28/19 13 68293-IRLX SKIN LESIONS, 2 TO 4 03/11/20 13 78010-HKYP SKIN LESIONS, 2 TO 4 12/11/19 13 18086-IUUR SKIN LESIONS, 2 TO 4 01/07/20 14 78859-YRXI SKIN LESIONS, 2 TO 4 09/17/19 14 67063-WAIL SKIN LESIONS, 2 TO 4 04/20/19 16 27225-QJII SKIN LESIONS, 2 TO 4 01/06/20 15 86577-CJTU SKIN LESIONS, 2 TO 4 06/24/19 15 65047-VUTB SKIN LESIONS, 2 TO 4 10/07/19 15 08807-GMHV SKIN LESIONS, 2 TO 4 03/17/20 14 56939-NGRR SKIN LESIONS, 2 TO 4 06/11/19 14 73105-MQZN SKIN LESIONS, 2 TO 4 07/20/19 16 60097-AJIA SKIN LESIONS, 2 TO 4 10/26/19 16 82317-JRFI SKIN LESIONS, 2 TO 4 05/23/19 17 47448-VPLU SKIN LESIONS, 2 TO 4 08/26/19 17 33923-PXTU SKIN LESIONS, 2 TO 4 01/25/20 16 08866-KJXS SKIN LESIONS, 2 TO 4 07/11/19 18 95379-IJLU SKIN LESIONS, 2 TO 4 03/06/20 17 30327-LYLH SKIN LESIONS, 2 TO 4 12/06/19 17 21519-BONZ SKIN LESION 09/12/2011 21874-AVPN SKIN LESION 03/21/2011 38051-NSWV SKIN LESION 06/13/2011 59794-Xakdqucvt, Toes 06/28/2023 Next Appt Details Provider Name:Arturo Simon , 08/08/2024 10:00:00 AM, [address] [place], [address], Insurance Providers Payer Name Payer Address Payer Phone Subscriber Number Group Number Insured Name Patient Relationship to Insured Coverage Start Date Coverage End Date Medicare National Govt [facility] [address] [place] [address] [id number] [place], [place] Self - patient is the insured 2 [employer] [address] [place] [address] [phone] [id number] [place], [place] Self - patient is the insured Medical (General) History Medical History History ICD Code Cholesterol transfusions joint implants/screws osteoporosis measles high blood pressure diverticulitis chicken pox cataracts back, hip, knee pain Arthritis sciatica endoscopy 10/2018 type I diabetes Urinary tract infection Surgical History Surgery Date(Month/Year) left hip replacement 2007 right knee replacement 2010 MRI R knee 05/2020 cardioversion 05/2021 Hospitalization History Reason Date(Month/Year) [facility]- [facility] 11[facility]16[facility]23 [facility]: A-fib 12/2015 [facility] / for medication 6 [facility] cath put in 04/2015
--- OUTSIDE RECORDS SUMMARY | 2024-05-28 12:27 | XMS_ITS | Encounter Summary ---
Author Organization [facility] Address [address] [place] [address] Care Team Providers Care Camp Nurse Name Role Phone Torrey Kwok MD Primary Care Provider [phone] Encounter Details Date Type Department Care Team (Late st Contact Info) Description 05/01/2024 Lab Requisition [facility] - Main Lab [address] [place] [address] Torrey Kwok MD [address] [place] [address] Type 2 diabetes mellitus without complications (CMS/HCC) [...] LAB CHEMISTRY METHOD 05/01/2024 9:17 AM EST [facility] Potassium 4.0 3.5 - 5.5 mmol/L LAB CHEMISTRY METHOD 05/01/2024 9:17 AM EST [facility] Chloride 97 96 - 110 mmol/L LAB CHEMISTRY METHOD 05/01/2024 9:17 AM EST [facility] CO2 29 21 - 32 mmol/L LAB CHEMISTRY METHOD 05/01/2024 9:17 AM [facility] Anion Gap 8 3 - 11 LAB CHEMISTRY METHOD 05/01/2024 9:17 AM [facility] Glucose 262(H) 70 - 100 mg/dL LAB CHEMISTRY METHOD 05/01/2024 9:17 AM [facility] BUN 45(H) 5 - 25 mg/dL LAB CHEMISTRY METHOD 05/01/2024 9:17 AM [facility] Creatinine 1.66(H) 0.50 - 1.10 mg/dL LAB CHEMISTRY METHOD 05/01/2024 9:17 AM [facility] eGFR 30(L) >=60 mL/min/1. 73m2 LAB CHEMISTRY METHOD 05/01/2024 9:17 AM [facility] Comment:Calculation based on the??Chronic Kidney Disease Epidemiology Collaboration (CKD-EPI) equation refit??without adjustment for race. BUN/Creatinine Ratio 27.1 LAB CHEMISTRY METHOD 05/01/2024 9:17 AM [facility] Calcium 7.6(L) 8.5 - 10.5 mg/dL LAB CHEMISTRY METHOD 05/01/2024 9:17 AM [facility] Blood Venous blood specimen / Unknown Venipuncture / Unknown 05/01/2024 7:06 AM EST 05/01/2024 8:25 AM EST us Torrey Kwok MD LAB BLOOD ORDERABLES Final Resul t [facility] [address] [place] [address], documented in this encounter Visit Diagnoses Diagnosis Type 2 diabetes mellitus without complications (CMS/HCC) documented in this encounter Care Teams Camp Nurse Relationship Specialty Start Date End Date Torrey Kwok MD [address] [place] [address] [address] [place] [address] PCP - General Geriatric Medicine 04/25/24 documented as of this encounter
--- OUTSIDE RECORDS SUMMARY | 2024-05-28 12:27 | XMS_ITS ---
Author Organization [facility] Address [address] [place] [address] Care Team Providers Care Rasper Machine Operator Name Role Phone Monique White Primary Care Provider Arturo Brown Unavailable [phone] Encounters Encounter Location Date Provider Diagnosis [address] [address] 05/06/2024 Arturo Simon Plan Of Treatment Next Appt Details Provider Name:Arturo Simon , 08/08/2024 10:00:00 AM, [address] [place], [address], Progress Notes * Gerri SCHWARTZ RDOB:[birth year] (88 yo F)Acc No.[id number]:05/06/2024 Progress Note Patient:?Gerri SCHWARTZ R Provider:?Arturo Simon DPM :1935???Age:88 Y???Sex:Female D ate:05/06/2024 Address:[id number] Pcp:Monique White Subjective: * Chief Complaints: * ??? * Medical History:? Objective: * Vitals:? Assessment: Plan: * Treatment: * Images: * The named appointment provid er may or may not be the originator of this progress note, and it is not deemed complete until electronically signed by the appointment provider. Sign off status: Pending * Provider:?Arturo Simon DPM Date:?2024 Generated for Awilda diggs/Lee/Nilay on:?05/28/2024 12:27 PM EST
--- OUTSIDE RECORDS SUMMARY | 2024-05-28 12:27 | XMS_ITS | Encounter Summary ---
Author Organization [facility] Address [address] [place] [address] Care Team Providers Care Street Superintendent Name Role Phone Torrey Kwok MD Primary Care Provider [phone] Encounter Details Date Type Department Care Team (Late st Contact Info) Description 05/24/2024 Lab Requisition [facility] - Main Lab [address] [facility] [place] [address] Torrey Kwok MD [address] [place] [address] Type 2 diabetes mellitus with diabetic chronic kidney disease (CMS/HCC); Essential (primary) hypertension; Heart failure, unspecified (CMS/HCC); 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 eGFR 46(L) [...] MD LAB BLOOD ORDERABLES Final Resul t [facility] [address] [place] [address], * (ABNORMAL) B-type natriuretic peptide (05/26/2024 5:59 AM EST) BNP 320(H) <=100 pcg/mL LAB CHEMISTRY METHOD 05/26/2024 1:35 PM EST [facility] Blood Venous blood specimen / Unknown Venipuncture / Unknown 05/26/2024 5:59 AM EST 05/26/2024 11:00 AM EST us Torrey Kwok MD LAB BLOOD ORDERABLES Final Resul t [facility] [address] [place] [address], [place] [phone] * (ABNORMAL) Basic metabolic panel (05/26/2024 5:59 AM EST) Pathologist [facility] Sodium 141 133 - 145 mmol/L LAB [...] 73m2 LAB CHEMISTRY METHOD 05/26/2024 11:50 AM EST [facility] Comment:Calculation based on [...] EST 05/26/2024 11:00 AM EST us Torrey Kwko MD LAB BLOOD ORDERABLES Final Resul t [facility] [address] [place] [address], [place] [phone] * (ABNORMAL) Complete blood count (05/26/2024 5:59 AM EST) WBC 10.4 4.8 - 10.8 K/mcL LAB HEMETOLOGY METHOD 05/26/2024 11:[address] [facility] RBC 3.30(L) 3.80 - 4.80 M/mcL LAB HEMETOLOGY METHOD 05/26/2024 11:[address] [facility] Hemoglobin 10.7(L) 11.5 - 16.0 g/dL LAB HEMETOLOGY METHOD 05/26/2024 11:[address] [facility] Hematocrit 34.0(L) 35.0 - 47.0 % LAB HEMETOLOGY METHOD 05/26/2024 11:[address] [facility] MCV 102.1(H) 79.0 - 98.0 FL LAB HEMETOLOGY METHOD 05/26/2024 11:[address] [facility] MCH 32.1(H) 27.0 - 32.0 pcg LAB HEMETOLOGY METHOD 05/26/2024 11:[address] [facility] MCHC 31.5(L) 32.0 - 37.0 g/dL LAB HEMETOLOGY METHOD 05/26/2024 11:[address] [facility] RDW 19.8(H) 11.0 - 15.0 % LAB HEMETOLOGY METHOD 05/26/2024 11:[address] [facility] Platelets 418(H) 130 - 400 K/mcL LAB HEMETOLOGY METHOD 05/26/2024 11:[address] [facility] MPV 10.0 7.0 - 11.0 FL LAB HEMETOLOGY METHOD 05/26/2024 11:[address] [facility] NRBC 0.0 <1.0 % LAB HEMETOLOGY METHOD 05/26/2024 11:[address] [facility] NRBC Absolute 0.00 <0.10 K/mcL LAB HEMETOLOGY METHOD 05/26/2024 11:[address] 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
--- OUTSIDE RECORDS SUMMARY | 2024-05-28 12:27 | XMS_ITS | Clinical Summary ---
Author Organization [facility] Address [address] [facility] [place] [address] [place] [address] Phone Care Team Providers Care Education Counselor Name Role Phone Monique White MD Primary Care Provider [phone] Allergies Active Allergy Reactions Criticality Noted Date [...] PT (per her report last PT at [facility] in July-August 2020). I have encouraged [...] 0 Unsteadiness on feet 12/09/2019 Weakness 12/09/2019 Immunizations Name Administration Dates Next Due Influenza [...] Mass Index - - Plan of Treatment Health Maintenance Due Date Last Done Comments Pneumococcal Vaccine: 65+ Years (1 of 2 - PCV) 1941 Diabetes: Ophthalmology Exam 05/09/2020 Diabetes: Pedal Pulse Checked 05/09/2020 Diabetes: Sensory Foot Exam 05/09/2020 Diabetes: Visual Foot Exam 05/09/2020 Influenza Vaccine (#1) 2023 , 01/28/2019, 01/07/2018, Additional history exists Diabetes: Hemoglobin A1C 07/24/2024 04/25/2024 Hepatitis B Vaccine Aged Out No longe r eligible based on patient's age to complete this topic Insurance [facility] MEDICARE [facility] MEDICARE Care Teams Education Counselor Relationship Specialty Start Date End Date Monique White MD [facility] [address] [place] PCP - General Internal Medicine 03/11/21
--- OUTSIDE RECORDS SUMMARY | 2024-05-28 12:27 | XMS_ITS | Encounter Summary ---
Author Organization [facility] Address [address] [place] [address] Care Team Providers Care Soft Iron Inspector Name Role Phone Torrey Kwok MD Primary Care Provider [phone] Encounter Details Date Type Department Care Team (Late st Contact Info) Description 04/25/2024 Lab Requisition [facility] - Main Lab 299 [facility] nap- [place] [address] Torrey Kwok MD [address] [place] [address] Vitamin D deficiency, unspecified; Type 2 diabetes [...] LAB CHEMISTRY METHOD 04/25/2024 10:35 AM EST [facility] Blood Venous blood specimen / Unknown Venipuncture / Unknown 04/25/2024 5:49 AM EST 04/25/2024 9:21 AM EST us Torrey Kwok MD LAB BLOOD ORDERABLES Final Resul t [facility] [address] [place] [address], [place] [phone] * Thyroid stimulating hormone (04/25/2024 5:49 AM EST) TSH 3.04 0.40 - 4.00 mcIU/mL LAB CHEMISTRY METHOD 04/25/2024 10:35 AM EST [facility] Blood Venous blood specimen / Unknown Venipuncture / Unknown 04/25/2024 5:49 AM EST 04/25/2024 9:21 AM EST us Torrey Kwok MD LAB BLOOD ORDERABLES Final Resul t [facility] [address] [place] [address], [place] [phone] * Folate (04/25/2024 5:49 AM EST) Folate 12.8 2.8 - 17.0 ng/ml LAB CHEMISTRY METHOD 04/25/2024 11:26 AM EST [facility] Blood Venous blood specimen / Unknown Venipuncture / Unknown 04/25/2024 5:49 AM EST 04/25/2024 9:21 AM EST us Torrey Kwok MD LAB BLOOD ORDERABLES Final Resul t [facility] [address] [place] [address], [place] [phone] * Vitamin B12 (04/25/2024 5:49 AM EST) Vitamin B-12 711 250 - 900 pcg/mL LAB CHEMISTRY METHOD 04/25/2024 11:26 AM EST [facility] Blood Venous blood specimen / Unknown Venipuncture / Unknown 04/25/2024 5:49 AM EST 04/25/2024 9:21 AM EST us Torrey Kwok MD LAB BLOOD ORDERABLES Final Resul t Performing Organization Address City/[facility]/ZIP Co de Phone Number [facility] [address] [place] [address], [place] [phone] * (ABNORMAL) Hemoglobin A1c (04/25/2024 5:49 AM EST) [facility] Hemoglobin A1C 8.7(H) <6.5 % LAB CHEMISTRY METHOD 04/25/2024 1:33 PM EST [facility] Mean Bld Glu Estim. 203 mg/dL LAB CHEMISTRY METHOD 04/25/2024 1:33 PM EST [facility] Blood Venous blood specimen / Unknown Venipuncture / Unknown 04/25/2024 5:49 AM EST 04/25/2024 9:21 AM EST Torrey Kwok MD LAB BLOOD ORDERABLES Final Resul t Performing Organization Address [facility]/ZIP Co de Phone Number [facility] [address] [place] [address], [place] [phone] * (ABNORMAL) Comprehensive metabolic panel (04/25/2024 5:49 AM EST) [facility] Sodium 135 133 - 145 mmol/L LAB CHEMISTRY METHOD 04/25/2024 11:26 AM [facility] Potassium 4.0 3.5 - 5.5 mmol/L LAB CHEMISTRY METHOD 04/25/2024 11:26 AM [facility] Chloride 98 96 - 110 mmol/L LAB CHEMISTRY METHOD 04/25/2024 11:26 AM [facility] CO2 30 21 - 32 mmol/L LAB CHEMISTRY METHOD 04/25/2024 11:26 AM [facility] Anion Gap 7 3 - 11 LAB CHEMISTRY METHOD 04/25/2024 11:26 AM [facility] Glucose 290(H) 70 - 100 mg/dL LAB CHEMISTRY METHOD 04/25/2024 11:26 AM [facility] BUN 25 5 - 25 mg/dL LAB CHEMISTRY METHOD 04/25/2024 11:26 AM [facility] Creatinine 1.06 0.50 - 1.10 mg/dL LAB CHEMISTRY METHOD 04/25/2024 11:26 AM [facility] eGFR 51(L) >=60 mL/min/1. 73m2 LAB CHEMISTRY METHOD 04/25/2024 11:26 AM [facility] Comment:Calculation based on the??Chronic Kidney Disease Epidemiology Collaboration (CKD-EPI) equation refit??without adjustment for race. BUN/Creatinine Ratio 23.6 LAB CHEMISTRY METHOD 04/25/2024 11:26 AM [facility] Calcium 8.2(L) 8.5 - 10.5 mg/dL LAB CHEMISTRY METHOD 04/25/2024 11:26 AM [facility] AST (SGOT) 17 10 - 42 unit/L LAB CHEMISTRY METHOD 04/25/2024 11:26 AM [facility] ALT (SGPT) 16 10 - 60 unit/L LAB CHEMISTRY METHOD 04/25/2024 11:26 AM [facility] Alkaline Phosphatase 81 42 - 121 unit/L LAB CHEMISTRY METHOD 04/25/2024 11:26 AM [facility] Total Protein 5.3(L) 6.0 - 8.0 g/dL LAB CHEMISTRY METHOD 04/25/2024 11:26 AM [facility] Albumin 2.7(L) 3.2 - 5.0 g/dL LAB CHEMISTRY METHOD 04/25/2024 11:26 AM [facility] Total Bilirubin 1.2 0.0 - 1.4 mg/dL LAB CHEMISTRY METHOD 04/25/2024 11:26 AM [facility] Blood Venous blood specimen / Unknown Venipuncture / Unknown 04/25/2024 5:49 AM EST 04/25/2024 9:21 AM EST us Torrey Kwok MD LAB BLOOD ORDERABLES Final Resul t [facility] [address] [place] [address], * (ABNORMAL) Complete blood count (04/25/2024 5:49 AM EST) WBC 7.7 4.8 - 10.8 K/mcL LAB HEMETOLOGY METHOD 04/25/2024 10:07 AM EST [facility] RBC 2.90(L) 3.80 - 4.80 M/mcL LAB HEMETOLOGY METHOD 04/25/2024 10:07 AM [facility] Hemoglobin 9.1(L) 11.5 - 16.0 g/dL LAB HEMETOLOGY METHOD 04/25/2024 10:07 AM [facility] Hematocrit 27.7(L) 35.0 - 47.0 % LAB HEMETOLOGY METHOD 04/25/2024 10:07 AM [facility] MCV 94.9 79.0 - 98.0 FL LAB HEMETOLOGY METHOD 04/25/2024 10:07 AM [facility] MCH 31.2 27.0 - 32.0 pcg LAB HEMETOLOGY METHOD 04/25/2024 10:07 AM [facility] MCHC 32.9 32.0 - 37.0 g/dL LAB HEMETOLOGY METHOD 04/25/2024 10:07 AM [facility] RDW 15.5(H) 11.0 - 15.0 % LAB HEMETOLOGY METHOD 04/25/2024 10:07 AM [facility] Platelets 214 130 - 400 K/mcL LAB HEMETOLOGY METHOD 04/25/2024 10:07 AM [facility] MPV 10.8 7.0 - 11.0 FL LAB HEMETOLOGY METHOD 04/25/2024 10:07 AM EST [facility] NRBC 0.0 <1.0 % LAB HEMETOLOGY METHOD 04/25/2024 10:07 AM EST [facility] NRBC Absolute 0.00 <0.10 K/mcL LAB HEMETOLOGY METHOD 04/25/2024 10:07 AM EST [facility] Blood Venous blood specimen / Unknown Venipuncture / Unknown 04/25/2024 5:49 AM EST 04/25/2024 9:21 AM EST us Torrey Kwok MD LAB BLOOD ORDERABLES Final Resul t [facility] [address] [place] [address], documented in this encounter Visit Diagnoses Diagnosis Vitamin D deficiency, unspecified 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
--- OUTSIDE RECORDS SUMMARY | 2024-05-28 12:27 | XMS_ITS ---
Author Organization [facility] Address [address] [place] [address] Care Team Providers Care Surgical Territory Manager Name Role Phone Monique White Primary Care Provider Arturo Brown [phone] REASON FOR VISIT Cancel Encounters Encounter Location Date Provider Diagnosis [facility] [address] [place] [address] 05/05/2024 Arturo Simon Plan Of Treatment Next Appt Details Provider Name:Arturo Simon , 08/08/2024 10:00:00 AM, [address] [place], [address], Progress Notes * Gerri SCHWARTZ RDOB:[birth year] (88 yo F)Acc No.[id number]:05/05/2024 Patient:?Gerri SCHWARTZ :1935???Age:88 Y???Sex:Female Address:[place], [address] * true * Date:? Generated for Printi dontae/Lee/eTransmitting on:?05/28/2024 12:27 PM EST
--- OUTSIDE RECORDS SUMMARY | 2024-05-28 12:27 | XMS_ITS | Encounter Summary ---
Author Organization [facility] Address [address] [place] [address] Care Team Providers Care Road Freight Conductor Name Role Phone Torrey Kwok MD Primary Care Provider [phone] Encounter Details Date Type Department Care Team (Late st Contact Info) Description 05/09/2024 Lab Requisition [facility] - Main Lab 299 [facility] [place] [address] Torrey Kwok MD [address] [place] [address] Type 2 diabetes mellitus with unspecified diabetic [...] Associated Diagnosis Comments COMPLETE BLOOD COUNT Routine 05/12/2024 5:48 AM [...] encounter Results * (ABNORMAL) Basic metabolic panel (05/12/2024 5:48 AM EST) Sodium 135 133 - 145 mmol/L LAB CHEMISTRY METHOD 05/12/2024 1:22 PM [facility] Potassium 3.5 3.5 - 5.5 mmol/L LAB CHEMISTRY METHOD 05/12/2024 1:22 PM [facility] Chloride 98 96 - 110 mmol/L LAB CHEMISTRY METHOD 05/12/2024 1:22 PM [facility] CO2 30 21 - 32 mmol/L LAB CHEMISTRY METHOD 05/12/2024 1:22 PM [facility] Anion Gap 7 3 - 11 LAB CHEMISTRY METHOD 05/12/2024 1:22 PM [facility] Glucose 219(H) 70 - 100 mg/dL LAB CHEMISTRY METHOD 05/12/2024 1:22 PM [facility] BUN 28(H) 5 - 25 mg/dL LAB CHEMISTRY METHOD 05/12/2024 1:22 PM [facility] Creatinine 0.97 0.50 - 1.10 mg/dL LAB CHEMISTRY METHOD 05/12/2024 1:22 PM [facility] eGFR 57(L) >=60 mL/min/1. 73m2 LAB CHEMISTRY METHOD 05/12/2024 1:22 PM [facility] Comment:Calculation based on the??Chronic Kidney Disease Epidemiology Collaboration (CKD-EPI) equation refit??without adjustment for race. BUN/Creatinine Ratio 28.9 LAB CHEMISTRY METHOD 05/12/2024 1:22 PM [facility] Calcium 8.6 8.5 - 10.5 mg/dL LAB CHEMISTRY METHOD 05/12/2024 1:22 PM [facility] Blood Venous blood specimen / Unknown 05/12/2024 5:48 AM EST 05/12/2024 11:28 AM EST us Torrey Kwok MD LAB BLOOD ORDERABLES Final Resul t [facility] [address] [place] [address], * (ABNORMAL) Complete blood count (05/12/2024 5:48 AM EST) WBC 7.5 4.8 - 10.8 K/mcL LAB HEMETOLOGY METHOD 05/12/2024 12:44 PM [facility] RBC 3.30(L) 3.80 - 4.80 M/mcL LAB HEMETOLOGY METHOD 05/12/2024 12:44 PM [facility] Hemoglobin 10.5(L) 11.5 - 16.0 g/dL LAB HEMETOLOGY METHOD 05/12/2024 12:44 PM [facility] Hematocrit 33.5(L) 35.0 - 47.0 % LAB HEMETOLOGY METHOD 05/12/2024 12:44 PM [facility] MCV 100.9(H) 79.0 - 98.0 FL LAB HEMETOLOGY METHOD 05/12/2024 12:44 PM [facility] MCH 31.6 27.0 - 32.0 pcg LAB HEMETOLOGY METHOD 05/12/2024 12:44 PM [facility] MCHC 31.3(L) 32.0 - 37.0 g/dL LAB HEMETOLOGY METHOD 05/12/2024 12:44 PM [facility] RDW 20.0(H) 11.0 - 15.0 % LAB HEMETOLOGY METHOD 05/12/2024 12:44 PM [facility] Platelets 386 130 - 400 K/mcL LAB HEMETOLOGY METHOD 05/12/2024 12:44 PM [facility] MPV 10.3 7.0 - 11.0 FL LAB HEMETOLOGY METHOD 05/12/2024 12:44 PM EST [facility] NRBC 0.0 <1.0 % LAB HEMETOLOGY METHOD 05/12/2024 12:44 PM EST [facility] NRBC Absolute 0.00 <0.10 K/mcL LAB HEMETOLOGY METHOD 05/12/2024 12:44 PM EST [facility] Blood Venous blood specimen / Unknown 05/12/2024 5:48 AM EST 05/12/2024 11:25 AM EST Torrey Kwok MD LAB BLOOD ORDERABLES Final Resul t [facility] [address] [place] [address], documented in this encounter Visit Diagnoses Diagnosis 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
--- OUTSIDE RECORDS SUMMARY | 2024-05-28 12:27 | XMS_ITS | Encounter Summary ---
Author Organization [facility] Address [address] [place] [address] Care Team Providers Care Behavioral Modification Assistant Name Role Phone Torrey Kwok MD Primary Care Provider [phone] Encounter Details Date Type Department Care Team (Late st Contact Info) Description 05/09/2024 Lab Requisition [facility] - Main Lab 299 [facility] [place] [address] Torrey Kwok MD [address] [place], [place] [id number] Type 2 diabetes mellitus with unspecified diabetic [...] documented as of this encounter Visit Diagnoses Diagnosis 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
--- OUTSIDE RECORDS SUMMARY | 2024-05-28 12:27 | XMS_ITS | Encounter Summary ---
Author Organization [facility] Address [address] [place] [address] Care Team Providers Care Clothing Examiner Name Role Phone Torrey Kwok MD Primary Care Provider [phone] Encounter Details Date Type Department Care Team (Late st Contact Info) Description 05/06/2024 Lab Requisition [facility] - Main Lab 299 [facility] [place] [address] Torrey Kwok MD [address] [place] [address] Type 2 diabetes mellitus without complications (CMS/HCC) [...] Associated Diagnosis Comments COMPLETE BLOOD COUNT Routine 05/07/2024 8:42 AM EST Type 2 diabetes mellitus without complications (CMS/HCC) BASIC METABOLIC PANEL Routine 05/07/2024 8:42 AM EST Type 2 diabetes mellitus without complications (CMS/HCC) documented in this encounter Results * (ABNORMAL) Basic metabolic panel (05/07/2024 8:42 AM EST) Sodium 130(L) 133 - 145 mmol/L LAB CHEMISTRY METHOD 05/07/2024 1:13 PM EST [facility] Potassium 4.1 3.5 - 5.5 mmol/L LAB CHEMISTRY METHOD 05/07/2024 1:13 PM [facility] Chloride 96 96 - 110 mmol/L LAB CHEMISTRY METHOD 05/07/2024 1:13 PM [facility] CO2 26 21 - 32 mmol/L LAB CHEMISTRY METHOD 05/07/2024 1:13 PM [facility] Anion Gap 8 3 - 11 LAB CHEMISTRY METHOD 05/07/2024 1:13 PM [facility] Glucose 271(H) 70 - 100 mg/dL LAB CHEMISTRY METHOD 05/07/2024 1:13 PM [facility] BUN 21 5 - 25 mg/dL LAB CHEMISTRY METHOD 05/07/2024 1:13 PM [facility] Creatinine 0.98 0.50 - 1.10 mg/dL LAB CHEMISTRY METHOD 05/07/2024 1:13 PM [facility] eGFR 56(L) >=60 mL/min/1. 73m2 LAB CHEMISTRY METHOD 05/07/2024 1:13 PM [facility] Comment:Calculation based on the??Chronic Kidney Disease Epidemiology Collaboration (CKD-EPI) equation refit??without adjustment for race. BUN/Creatinine Ratio 21.4 LAB CHEMISTRY METHOD 05/07/2024 1:13 PM [facility] Calcium 9.0 8.5 - 10.5 mg/dL LAB CHEMISTRY METHOD 05/07/2024 1:13 PM [facility] Blood Venous blood specimen / Unknown Venipuncture / Unknown 05/07/2024 8:42 AM EST 05/07/2024 11:51 AM EST us Torrey Kwok MD LAB BLOOD ORDERABLES Final Resul t [facility] [address] [place] [address], * (ABNORMAL) Complete blood count (05/07/2024 8:42 AM EST) WBC 9.1 4.8 - 10.8 K/[facility] LAB HEMETOLOGY METHOD 05/07/2024 12:40 PM [facility] RBC 3.90 3.80 - 4.80 M/[facility] LAB HEMETOLOGY METHOD 05/07/2024 12:40 PM [facility] Hemoglobin 12.4 11.5 - 16.0 g/dL LAB HEMETOLOGY METHOD 05/07/2024 12:40 PM [facility] Hematocrit 38.7 35.0 - 47.0 % LAB HEMETOLOGY METHOD 05/07/2024 12:40 PM [facility] MCV 99.2(H) 79.0 - 98.0 FL LAB HEMETOLOGY METHOD 05/07/2024 12:40 PM [facility] MCH 31.8 27.0 - 32.0 pcg LAB HEMETOLOGY METHOD 05/07/2024 12:40 PM [facility] MCHC 32.0 32.0 - 37.0 g/dL LAB HEMETOLOGY METHOD 05/07/2024 12:40 PM [facility] RDW 19.9(H) 11.0 - 15.0 % LAB HEMETOLOGY METHOD 05/07/2024 12:40 PM [facility] Platelets 384 130 - 400 K/[facility] LAB HEMETOLOGY METHOD 05/07/2024 12:40 PM [facility] MPV 10.7 7.0 - 11.0 FL LAB HEMETOLOGY METHOD 05/07/2024 12:40 PM [facility] NRBC 0.0 <1.0 % LAB HEMETOLOGY METHOD 05/07/2024 12:40 PM [facility] NRBC Absolute 0.00 <0.10 K/[facility] LAB HEMETOLOGY METHOD 05/07/2024 12:40 PM [facility] Blood Venous blood specimen / Unknown Venipuncture / Unknown 05/07/2024 8:42 AM EST 05/07/2024 11:51 AM EST Torrey Kwok MD LAB BLOOD ORDERABLES Final Resul t [facility] [address] [place] [address], documented in this encounter Visit Diagnoses Diagnosis Type 2 diabetes mellitus without complications (CMS/HCC) documented in this encounter Care Teams Clothing Examiner Relationship Specialty Start Date End Date Torrey Kwok MD [address] [place] [address] [address] [place] [address] PCP - General Geriatric Medicine 04/25/24 documented as of this encounter
--- OUTSIDE RECORDS SUMMARY | 2024-05-28 12:27 | XMS_ITS | Patient Health Record ---
Author Organization [facility] Address [address] [place] [address] Care Team Providers Care Rescue Worker Name Role Phone Po Monique HODGE Primary Care Provider John Moore Jr Unavailable [phone] ALLERGIES Allergen (clinical drug ingredient) Drug/Non Drug [...] Active Omeprazole 20 TAKE 1 [facility] TW[facility] DAILY for 90 days Active IMMUNIZATIONS Vaccine Route Administration Date Status Comme nts Influenza Unknown 02/08/2016 Administered Influenza Unknown 02/07/2018 Administered SOCIAL HISTORY Sex Assigned At : Social History Observation Description Sex Assigned At Unknown PROBLEMS Problem Type ICD Code Onset Dates Problem Status W/U Status Risk SNOMED Code Notes Problem Gastro-esophagea l reflux disease without esophagitis (K21.9) Active confirmed 117726939 Problem Dysphagia, unspecified type (R13.10) Active confirmed 49851669 Problem Abnormal UGI series (R93.3) Active confirmed 189268955 Problem Hypertension, unspecified type (I10) Active confirmed [id number] Encounters Encounter Location Date Provider Diagnosis [facility] [address] [place] [address] 07/09/2023 John Epps Jr PLAN OF TREATMENT Pending Test Test Name Order Date XR GI SERIES 07/20/2016 Insurance Providers Payer Name Payer Address Payer Phone Subscriber Number Group Number Insured Name Patient Relationship to Insured Coverage Start Date Coverage End Date MEDICARE OF [place] [address] [place] [address] [id number] CHARLY SCHWARTZ Self - patient is the insured [employer] CLAIMS [address] [place] [address] [id number] CHARLY SCHWARTZ Self - patient is the insured MEDICAL (GENERAL) HISTORY Medical History History ICD Code colonoscopy 03/25/2004 diabetes mellitus osteoporosis Hypothyroidism elevated cholesterol hypertension diverticulosis internal hemorrhoids congestive heart failure urinary incontinence-mild Surgical History Surgery Date(Month/Year) cholecystectomy knee surgery section left hip replacement right knee replacement cardioversion 12/2015
== END 2024-05-28 11:52 | disposition home or self-care (01) ==
LOC: HO.HOSX 11:51
PROVIDERS: Visit Provider Physician Assistant
DX: M25.511 Pain in right shoulder (principal); S72.001A Fracture of unspecified part of neck of right femur, initial encounter for closed fracture
CPT/HCPCS: 73552; 99212

== ENCOUNTER 2024-05-28 13:46 | Outpatient (AMB) | payer MEDICARE, SELFPAY ==
--- OUTSIDE RECORDS SUMMARY | 2024-05-28 14:08 | XMS_ITS | Encounter Summary ---
Author Organization [facility] Address [address] [place] [address] Care Team Providers Care Nailhead Setter Name Role Phone Torrey Kwok MD Primary Care Provider [phone] Encounter Details Date Type Department Care Team (Late st Contact Info) Description 05/01/2024 Lab Requisition [facility] - Main Lab 299 [facility] [place] [address] Torrey Kwok MD [address] [place] [address] Type 2 diabetes mellitus without complications (CMS/HCC) [...] LAB CHEMISTRY METHOD 05/01/2024 9:17 AM EST [facility] Potassium 4.0 3.5 - 5.5 mmol/L LAB CHEMISTRY METHOD 05/01/2024 9:17 AM EST [facility] Chloride 97 96 - 110 mmol/L LAB CHEMISTRY METHOD 05/01/2024 9:17 AM EST [facility] CO2 29 21 - 32 mmol/L LAB CHEMISTRY METHOD 05/01/2024 9:17 AM [facility] Anion Gap 8 3 - 11 LAB CHEMISTRY METHOD 05/01/2024 9:17 AM [facility] Glucose 262(H) 70 - 100 mg/dL LAB CHEMISTRY METHOD 05/01/2024 9:17 AM [facility] BUN 45(H) 5 - 25 mg/dL LAB CHEMISTRY METHOD 05/01/2024 9:17 AM [facility] Creatinine 1.66(H) 0.50 - 1.10 mg/dL LAB CHEMISTRY METHOD 05/01/2024 9:17 AM [facility] eGFR 30(L) >=60 mL/min/1. 73m2 LAB CHEMISTRY METHOD 05/01/2024 9:17 AM [facility] Comment:Calculation based on the??Chronic Kidney Disease Epidemiology Collaboration (CKD-EPI) equation refit??without adjustment for race. BUN/Creatinine Ratio 27.1 LAB CHEMISTRY METHOD 05/01/2024 9:17 AM [facility] Calcium 7.6(L) 8.5 - 10.5 mg/dL LAB CHEMISTRY METHOD 05/01/2024 9:17 AM [facility] Blood Venous blood specimen / Unknown Venipuncture / Unknown 05/01/2024 7:06 AM EST 05/01/2024 8:25 AM EST us Torrey Kwok MD LAB BLOOD ORDERABLES Final Resul t [facility] [address] [place] [address], documented in this encounter Visit Diagnoses Diagnosis Type 2 diabetes mellitus without complications (CMS/HCC) documented in this encounter Care Teams Nailhead Setter Relationship Specialty Start Date End Date Torrey Kwok MD [address] [place] [address] [address] [place] [address] PCP - General Geriatric Medicine 04/25/24 documented as of this encounter
--- OUTSIDE RECORDS SUMMARY | 2024-05-28 14:08 | XMS_ITS | Encounter Summary ---
Author Organization [facility] Address [address] [place] [address] Care Team Providers Care Benefit Specialist Name Role Phone Torrey Kwok MD Primary Care Provider [phone] Encounter Details Date Type Department Care Team (Late st Contact Info) Description 05/06/2024 Lab Requisition [facility] - Main Lab 299 [facility] [place] [address] Torrey Kwok MD [address] [place] [address] Type 2 diabetes mellitus without complications (CMS/HCC) [...] LAB CHEMISTRY METHOD 05/07/2024 1:13 PM EST [facility] ([facility] LAB Potassium 4.1 3.5 - 5.5 [...] Resul t [facility] LAB [address] [place] [address], * (ABNORMAL) Complete blood count (05/07/2024 8:42 AM EST) WBC 9.1 4.8 - 10.8 K/[facility] LAB HEMETOLOGY METHOD 05/07/2024 12:40 PM [facility] LAB RBC 3.90 3.80 - 4.80 M/[facility] LAB HEMETOLOGY METHOD 05/07/2024 12:40 PM [facility] LAB Platelets 384 130 - 400 K/[facility] LAB HEMETOLOGY METHOD 05/07/2024 12:40 PM [facility] LAB MPV 10.7 7.0 - 11.0 FL LAB HEMETOLOGY METHOD 05/07/2024 12:40 PM [facility] LAB NRBC 0.0 <1.0 % LAB HEMETOLOGY METHOD 05/07/2024 12:40 PM [facility] LAB NRBC Absolute 0.00 <0.10 K/[facility] LAB HEMETOLOGY METHOD 05/07/2024 12:40 PM [facility] LAB Blood Venous blood specimen / Unknown Venipuncture / Unknown 05/07/2024 8:42 AM EST 05/07/2024 11:51 AM EST Torrey Kwok MD LAB BLOOD ORDERABLES Final Resul t [facility] ([facility]) [facility] LAB [address] [place] [address], documented in this encounter Visit Diagnoses Diagnosis Type 2 diabetes mellitus without complications (CMS/HCC) documented in this encounter Care Teams Benefit Specialist Relationship Specialty Start Date End Date Torrey Kwok MD [address] [place] [address] [address] [place] [address] PCP - General Geriatric Medicine 04/25/24 documented as of this encounter
--- OUTSIDE RECORDS SUMMARY | 2024-05-28 14:08 | XMS_ITS | Encounter Summary ---
Author Organization [facility] Address [address] [place] [address] Care Team Providers Care Bar Hostess Name Role Phone Torrey Kwok MD Primary Care Provider [phone] Encounter Details Date Type Department Care Team (Late st Contact Info) Description 05/09/[address] [facility] - Main Lab [address] [facility] [place] [address] Torrey Kwok MD [address] [place], [place] [id number] Type 2 diabetes mellitus with unspecified diabetic [...] (CMS/HCC) documented in this encounter Care Teams Bar Hostess Relationship Specialty Start Date End Date Torrey Kwok MD [address] [place], [place] [id number] PCP - General Geriatric Medicine 04/25/24 documented as of this encounter
--- OUTSIDE RECORDS SUMMARY | 2024-05-28 14:08 | XMS_ITS | Encounter Summary ---
Author Organization [facility] Address [address] [place] [address] Care Team Providers Care Business Office Manager Name Role Phone Torrey Kwok MD Primary Care Provider [phone] Encounter Details Date Type Department Care Team (Late st Contact Info) Description 05/24/2024 Lab Requisition [facility] - Main Lab 299 [facility] [place] [address] Torrey Kwok MD [address] [place] [address] Type 2 diabetes mellitus with diabetic chronic [...] MD LAB BLOOD ORDERABLES Final Resul t [facility] LAB [address] [place] [address], * (ABNORMAL) B-type natriuretic peptide (05/26/2024 5:59 AM EST) BNP 320(H) <=100 pcg/mL LAB CHEMISTRY METHOD 05/26/2024 1:35 PM EST [facility] LAB Blood Venous blood specimen / Unknown Venipuncture / Unknown 05/26/2024 5:59 AM EST 05/26/2024 11:00 AM EST us Torrey Kwok MD LAB BLOOD ORDERABLES Final Resul t [facility] [address] [place] [address], [place] [phone] * (ABNORMAL) Basic metabolic panel (05/26/2024 5:59 AM EST) Pathologist [facility] Sodium 141 133 - 145 mmol/L LAB [...] LAB CHEMISTRY METHOD 05/26/2024 11:50 AM EST [facility] LAB Comment:Calculation based on the??Chronic [...] MD LAB BLOOD ORDERABLES Final Resul t [facility] [address] [place] [address], [place] [phone] * (ABNORMAL) Complete blood count (05/26/2024 5:59 [...] MD LAB BLOOD ORDERABLES Final Resul t [facility] [address] [place] [address], documented in this encounter Visit Diagnoses Diagnosis Type 2 diabetes mellitus with diabetic chronic kidney disease (CMS/HCC) Essential (primary) hypertension Unspecified essential hypertension Heart failure, unspecified (CMS/HCC) Heart failure, unspecified 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
--- OUTSIDE RECORDS SUMMARY | 2024-05-28 14:08 | XMS_ITS | Clinical Summary ---
Author Organization [facility] Address [address] [facility] [address] [place] [address] Phone Care Team Providers Care Principal Planner Name Role Phone Monique White MD Primary Care Provider [phone] Allergies Active Allergy Reactions Criticality Noted Date [...] PT (per her report last PT at [facility] in July-August 2020). I have encouraged her [...] patient's age to complete this topic Insurance [facility] MEDICARE [facility] MEDICARE Care Teams Principal Planner Relationship Specialty Start Date End Date Monique White MD [facility] [address] [facility] [facility] [address] [place] PCP - General Internal Medicine 03/11/21
--- OUTSIDE RECORDS SUMMARY | 2024-05-28 14:08 | XMS_ITS | Encounter Summary ---
Author Organization [facility] Address [address] [place] [address] Care Team Providers Care Podiatric Aide Name Role Phone Torrey Kwok MD Primary Care Provider [phone] Encounter Details Date Type Department Care Team (Late st Contact Info) Description 05/16/[address] [facility] - Main Lab 299 [facility] [place] [address] Torrey Kwok MD [address] [place] [address] Heart failure, unspecified (CMS/HCC); Essential (primary) hypertension; [...] MD LAB BLOOD ORDERABLES Final Resul t [facility] [address] [place] [address], * (ABNORMAL) Complete blood count (05/19/2024 7:33 AM EST) [place] [facility] WBC 5.4 4.8 - 10.8 K/mcL [...] LAB HEMETOLOGY METHOD 05/19/2024 1:26 PM EST [facility] NRBC Absolute 0.00 <0.10 K/mcL LAB HEMETOLOGY METHOD 05/19/2024 1:26 PM EST [facility] Blood Venous blood specimen / Unknown Venipuncture / Unknown 05/19/2024 7:33 AM EST 05/19/2024 12:17 PM EST us Torrey Kwok MD LAB BLOOD ORDERABLES Final Resul t [facility] LAB [address] [place] [address], documented in this encounter Visit Diagnoses Diagnosis Heart failure, unspecified (CMS/HCC) Heart failure, unspecified Essential (primary) hypertension Unspecified essential hypertension Type 2 diabetes mellitus with diabetic chronic kidney disease (CMS/HCC) documented in this encounter Care Teams Podiatric Aide Relationship Specialty Start Date End Date Torrey Kwok MD [address] [place] [address] [address] [place] [address] PCP - General Geriatric Medicine 04/25/24 documented as of this encounter
--- OUTSIDE RECORDS SUMMARY | 2024-05-28 14:08 | XMS_ITS | Encounter Summary ---
Author Organization [facility] Address [address] [place] [address] Care Team Providers Care Cellular Biologist Name Role Phone Torrey Kwok MD Primary Care Provider [phone] Encounter Details Date Type Department Care Team (Late st Contact Info) Description 04/25/2024 Lab Requisition [facility] - Main Lab 299 [facility] [place] [address] Torrey Kwok MD [address] [place] [address] Vitamin D deficiency, unspecified; Type 2 diabetes [...] LAB CHEMISTRY METHOD 04/25/2024 10:35 AM EST [facility] Blood Venous blood specimen / Unknown Venipuncture / Unknown 04/25/2024 5:49 AM EST 04/25/2024 9:21 AM EST us Torrey Kwok MD LAB BLOOD ORDERABLES Final Resul t [facility] [address] [place] [address], [place] [phone] * Thyroid stimulating hormone (04/25/2024 5:49 AM EST) TSH 3.04 0.40 - 4.00 mcIU/mL LAB CHEMISTRY METHOD 04/25/2024 10:35 AM EST [facility] Blood Venous blood specimen / Unknown Venipuncture / Unknown 04/25/2024 5:49 AM EST 04/25/2024 9:21 AM EST us Torrey Kwok MD LAB BLOOD ORDERABLES Final Resul t [facility] [address] [place] [address], [place] [phone] * Folate (04/25/2024 5:49 AM EST) Folate 12.8 2.8 - 17.0 ng/ml LAB CHEMISTRY METHOD 04/25/2024 11:26 AM EST [facility] Blood Venous blood specimen / Unknown Venipuncture / Unknown 04/25/2024 5:49 AM EST 04/25/2024 9:21 AM EST us Torrey Kwok MD LAB BLOOD ORDERABLES Final Resul t [facility] [address] [place] [address], [place] [phone] * Vitamin B12 (04/25/2024 5:49 AM EST) Vitamin B-12 711 250 - 900 pcg/mL LAB CHEMISTRY METHOD 04/25/2024 11:26 AM EST [facility] Blood Venous blood specimen / Unknown Venipuncture / Unknown 04/25/2024 5:49 AM EST 04/25/2024 9:21 AM EST us Torrey Kwok MD LAB BLOOD ORDERABLES Final Resul t Performing Organization Address City/[facility]/ZIP Co de Phone Number [facility] [address] [place] [address], [place] [phone] * (ABNORMAL) Hemoglobin A1c (04/25/2024 5:49 AM EST) [facility] Hemoglobin A1C 8.7(H) <6.5 % LAB CHEMISTRY METHOD 04/25/2024 1:33 PM EST [facility] Mean Bld Glu Estim. 203 mg/dL LAB CHEMISTRY METHOD 04/25/2024 1:33 PM EST [facility] Blood Venous blood specimen / Unknown Venipuncture / Unknown 04/25/2024 5:49 AM EST 04/25/2024 9:21 AM EST Torrey Kwok MD LAB BLOOD ORDERABLES Final Resul t Performing Organization Address [facility]/ZIP Co de Phone Number [facility] [address] [place] [address], [place] [phone] * (ABNORMAL) Comprehensive metabolic panel (04/25/2024 5:49 AM EST) [facility] Sodium 135 133 - 145 mmol/L LAB CHEMISTRY METHOD 04/25/2024 11:26 AM [facility] LAB Potassium 4.0 3.5 - 5.5 mmol/L LAB CHEMISTRY METHOD 04/25/2024 11:26 AM [facility] Chloride 98 96 - 110 mmol/L LAB CHEMISTRY METHOD 04/25/2024 11:26 AM [facility] CO2 30 21 - 32 mmol/L LAB CHEMISTRY METHOD 04/25/2024 11:26 AM [facility] Anion Gap 7 3 - 11 LAB CHEMISTRY METHOD 04/25/2024 11:26 AM [facility] Glucose 290(H) 70 - 100 mg/dL LAB CHEMISTRY METHOD 04/25/2024 11:26 AM [facility] BUN 25 5 - 25 mg/dL LAB CHEMISTRY METHOD 04/25/2024 11:26 AM [facility] Creatinine 1.06 0.50 - 1.10 mg/dL LAB CHEMISTRY METHOD 04/25/2024 11:26 AM [facility] LAB eGFR 51(L) >=60 mL/min/1. 73m2 LAB CHEMISTRY METHOD 04/25/2024 11:26 AM [facility] LAB Comment:Calculation based on the??Chronic Kidney Disease Epidemiology Collaboration (CKD-EPI) equation refit??without adjustment for race. BUN/Creatinine Ratio 23.6 LAB CHEMISTRY METHOD 04/25/2024 11:26 AM [facility] Calcium 8.2(L) 8.5 - 10.5 mg/dL LAB CHEMISTRY METHOD 04/25/2024 11:26 AM [facility] AST (SGOT) 17 10 - 42 unit/L LAB CHEMISTRY METHOD 04/25/2024 11:26 AM [facility] ALT (SGPT) 16 10 - 60 unit/L LAB CHEMISTRY METHOD 04/25/2024 11:26 AM [facility] Alkaline Phosphatase 81 42 - 121 unit/L LAB CHEMISTRY METHOD 04/25/2024 11:26 AM [facility] Total Protein 5.3(L) 6.0 - 8.0 g/dL LAB CHEMISTRY METHOD 04/25/2024 11:26 AM [facility] Albumin 2.7(L) 3.2 - 5.0 g/dL LAB CHEMISTRY METHOD 04/25/2024 11:26 AM [facility] Total Bilirubin 1.2 0.0 - 1.4 mg/dL LAB CHEMISTRY METHOD 04/25/2024 11:26 AM [facility] Blood Venous blood specimen / Unknown Venipuncture / Unknown 04/25/2024 5:49 AM EST 04/25/2024 9:21 AM EST us Torrey Kwok MD LAB BLOOD ORDERABLES Final Resul t [facility] [address] [place] [address], * (ABNORMAL) Complete blood count (04/25/2024 5:49 AM EST) WBC 7.7 4.8 - 10.8 K/mcL LAB HEMETOLOGY METHOD 04/25/2024 10:07 AM EST [facility] RBC 2.90(L) 3.80 - 4.80 M/mcL LAB HEMETOLOGY METHOD 04/25/2024 10:07 AM [facility] Hemoglobin 9.1(L) 11.5 - 16.0 g/dL LAB HEMETOLOGY METHOD 04/25/2024 10:07 AM [facility] Hematocrit 27.7(L) 35.0 - 47.0 % LAB HEMETOLOGY METHOD 04/25/2024 10:07 AM [facility] MCV 94.9 79.0 - 98.0 FL LAB HEMETOLOGY METHOD 04/25/2024 10:07 AM [facility] MCH 31.2 27.0 - 32.0 pcg LAB HEMETOLOGY METHOD 04/25/2024 10:07 AM [facility] LAB MCHC 32.9 32.0 - 37.0 g/dL LAB HEMETOLOGY METHOD 04/25/2024 10:07 AM [facility] RDW 15.5(H) 11.0 - 15.0 % LAB HEMETOLOGY METHOD 04/25/2024 10:07 AM [facility] LAB Platelets 214 130 - 400 K/mcL LAB HEMETOLOGY METHOD 04/25/2024 10:07 AM [facility] LAB MPV 10.8 7.0 - 11.0 FL LAB HEMETOLOGY METHOD 04/25/2024 10:07 AM EST [facility] NRBC 0.0 <1.0 % LAB HEMETOLOGY METHOD 04/25/2024 10:07 AM EST [facility] NRBC Absolute 0.00 <0.10 K/mcL LAB HEMETOLOGY METHOD 04/25/2024 10:07 AM EST [facility] Blood Venous blood specimen / Unknown Venipuncture / Unknown 04/25/2024 5:49 AM EST 04/25/2024 9:21 AM EST us Torrey Kwok MD LAB BLOOD ORDERABLES Final Resul t [facility] [address] [place] [address], documented in this encounter Visit Diagnoses Diagnosis Vitamin D deficiency, unspecified 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
--- OUTSIDE RECORDS SUMMARY | 2024-05-28 14:08 | XMS_ITS | Encounter Summary ---
Author Organization [facility] Address [address] [place] [address] Care Team Providers Care Information Technology Director Name Role Phone Torrey Kwok MD Primary Care Provider [phone] Encounter Details Date Type Department Care Team (Late st Contact Info) Description 04/30/2024 Lab Requisition [facility] - Main Lab 299 [facility] [place] [address] Torrye Kwok MD [address] [place] [address] Type 2 diabetes mellitus without complications (CMS/HCC) [...] LAB HEMETOLOGY METHOD 04/30/2024 2:51 PM EST [facility] RBC 3.40(L) 3.80 - 4.80 M/mcL LAB HEMETOLOGY METHOD 04/30/2024 2:51 PM EST [facility] Hemoglobin 10.7(L) 11.5 - 16.0 g/dL LAB HEMETOLOGY METHOD 04/30/2024 2:51 PM EST [facility] Hematocrit 34.7(L) 35.0 - 47.0 % LAB HEMETOLOGY METHOD 04/30/2024 2:51 PM [facility] MCV 101.5(H) 79.0 - 98.0 FL LAB HEMETOLOGY METHOD 04/30/2024 2:51 PM EST [facility] MCH 31.3 27.0 - 32.0 pcg LAB HEMETOLOGY METHOD 04/30/2024 2:51 PM [facility] MCHC 30.8(L) 32.0 - 37.0 g/dL LAB HEMETOLOGY METHOD 04/30/2024 2:51 PM [facility] RDW 17.1(H) 11.0 - 15.0 % LAB HEMETOLOGY METHOD 04/30/2024 2:51 PM [facility] Platelets 391 130 - 400 K/mcL LAB HEMETOLOGY METHOD 04/30/2024 2:51 PM [facility] MPV 10.8 7.0 - 11.0 FL LAB HEMETOLOGY METHOD 04/30/2024 2:51 PM [facility] NRBC 0.5 <1.0 % LAB HEMETOLOGY METHOD 04/30/2024 2:51 PM [facility] NRBC Absolute 0.03 <0.10 K/mcL LAB HEMETOLOGY METHOD 04/30/2024 2:51 PM [facility] Blood Venous blood specimen / Unknown Venipuncture / Unknown 04/30/2024 6:31 AM EST 04/30/2024 1:53 PM EST us Torrey Kwok MD LAB BLOOD ORDERABLES Final Resul t [facility] [address] [place] [address], documented in this encounter Visit Diagnoses Diagnosis Type 2 diabetes mellitus without complications (CMS/HCC) documented in this encounter Care Teams Information Technology Director Relationship Specialty Start Date End Date Torrey Kwok MD [address] [place] [address] [address] [place] [address] PCP - General Geriatric Medicine 04/25/24 documented as of this encounter
--- OUTSIDE RECORDS SUMMARY | 2024-05-28 14:08 | XMS_ITS | Encounter Summary ---
Author Organization [facility] Address [address] [place] [address] Care Team Providers Care Gas Or Petroleum Operator Name Role Phone Torrey Kwok MD Primary Care Provider [phone] Encounter Details Date Type Department Care Team (Late st Contact Info) Description 04/29/[address] [facility] - Main Lab 299 [facility] [employer] [place] [address] Torrey Kwok MD [address] [place] [address] Dysuria Social History Tobacco Use Types Packs/Day [...] Escherichia coli(A) ANDRE 05/01/2024 11:04 AM EST [facility] Urine Urine specimen from [...] MICROBIOLOGY - GENERAL ORDER GENET Final Result [facility] [address] [place] [address], [place] [phone] * Frost urine culture tube (04/28/2024 12:15 PM EST) Extra Tube Hold for add-ons. 04/29/2024 11:01 AM EST [facility] Comment:Auto resulted. Urine Urine specimen obtained by clean catch procedure / Unknown 04/28/2024 12:15 PM EST 04/29/2024 9:53 AM EST Torrey Kwok MD LAB URINE ORDERABLES Final Resul t [facility] [address] [place] [address], * (ABNORMAL) Urinalysis with reflex microscopic and culture (04/28/2024 12:15 PM EST) Specific [place] Urine 1.021 1.003 - 1.030 LAB URINALYSIS [...] MD LAB URINE ORDERABLES Final Resul t [facility] [address] [place] [address], documented in this encounter Visit Diagnoses Diagnosis Dysuria documented in this encounter Care Teams Gas Or Petroleum Operator Relationship Specialty Start Date End Date Torrey Kwok MD [address] [place] [address] [address] [place] [address] PCP - General Geriatric Medicine 04/25/24 documented as of this encounter
--- OUTSIDE RECORDS SUMMARY | 2024-05-28 14:08 | XMS_ITS | Encounter Summary ---
Author Organization [facility] Address [address] [place] [address] Phone Care Team Providers Care Retoucher Photoengraving Name Role Phone Monique White MD Primary Care Provider [phone] Encounter Details Date Type Department Care Team (Late st Contact Info) Description 06/07/2021 Telephone [facility] [address] [place] [address] Sohail Penaloza MD Social History [...] with you. Please call her back at [phone] Thank you documented in this encounter Plan of Treatment Not on file documented as of this encounter Visit Diagnoses Not on filedocumented in this encounter Care Teams Retoucher Photoengraving Relationship Specialty Start Date End Date Monique White MD [facility] [address] [place] PCP - General Internal Medicine 03/11/21 documented as of this encounter
--- OUTSIDE RECORDS SUMMARY | 2024-05-28 14:08 | XMS_ITS | Encounter Summary ---
Author Organization [facility] Address [address] [place] [address] Care Team Providers Care Pupil Personnel Services Director Name Role Phone Torrey Kwok MD Primary Care Provider [phone] Encounter Details Date Type Department Care Team (Late st Contact Info) Description 05/05/2024 Lab Requisition [facility] - Main Lab 299 [facility] [place] [address] Torrey Kwok MD [address] [place] [address] Chronic kidney disease, stage 3 unspecified (CMS/HCC); [...] LAB CHEMISTRY METHOD 05/05/2024 2:05 PM EST [facility] Potassium 5.0 3.5 - 5.5 mmol/L LAB CHEMISTRY METHOD 05/05/2024 2:05 PM EST [facility] Comment:Hemolysis present Chloride 99 96 - 110 mmol/L LAB CHEMISTRY METHOD 05/05/2024 2:05 PM [facility] CO2 26 21 - 32 mmol/L LAB CHEMISTRY METHOD 05/05/2024 2:05 PM [facility] Anion Gap 9 3 - 11 LAB CHEMISTRY METHOD 05/05/2024 2:05 PM [facility] Glucose 141(H) 70 - 100 mg/dL LAB CHEMISTRY METHOD 05/05/2024 2:05 PM [facility] BUN 23 5 - 25 mg/dL LAB CHEMISTRY METHOD 05/05/2024 2:05 PM [facility] Creatinine 1.08 0.50 - 1.10 mg/dL LAB CHEMISTRY METHOD 05/05/2024 2:05 PM [facility] eGFR 50(L) >=60 mL/min/1. 73m2 LAB CHEMISTRY METHOD 05/05/2024 2:05 PM [facility] Comment:Calculation based on the??Chronic Kidney Disease Epidemiology Collaboration (CKD-EPI) equation refit??without adjustment for race. BUN/Creatinine Ratio 21.3 LAB CHEMISTRY METHOD 05/05/2024 2:05 PM [facility] Calcium 8.3(L) 8.5 - 10.5 mg/dL LAB CHEMISTRY METHOD 05/05/2024 2:05 PM [facility] Blood Venous blood specimen / Unknown Venipuncture / Unknown 05/05/2024 5:43 AM EST 05/05/2024 11:40 AM EST us Torrey Kwok MD LAB BLOOD ORDERABLES Final Resul t [facility] [address] [place] [address], documented in this encounter Visit Diagnoses Diagnosis Chronic kidney disease, stage 3 unspecified (CMS/HCC) Type 2 diabetes mellitus with diabetic chronic kidney disease (CMS/HCC) documented in this encounter Care Teams Pupil Personnel Services Director Relationship Specialty Start Date End Date Torrey Kwok MD [address] [place] [address] [address] [place] [address] PCP - General Geriatric Medicine 04/25/24 documented as of this encounter
--- OUTSIDE RECORDS SUMMARY | 2024-05-28 14:09 | XMS_ITS | Encounter Summary ---
Author Organization [facility] Address [id number] [place] [phone] Care Team Providers Care Gericare Aide Teacher Name Role Phone Torrey Kwok MD Primary Care Provider [phone] Encounter Details Date Type Department Care Team (Late st Contact Info) Description 05/09/2024 Lab Requisition [facility] - Main Lab [address] [facility] [place] [address] Torrey Kwok MD [address] [place] [address] Type 2 diabetes mellitus with unspecified diabetic [...] mmol/L LAB CHEMISTRY METHOD 05/12/2024 1:22 PM [facility] Potassium 3.5 3.5 - 5.5 mmol/L LAB CHEMISTRY METHOD 05/12/2024 1:22 PM [facility] Chloride 98 96 - 110 mmol/L LAB CHEMISTRY METHOD 05/12/2024 1:22 PM [facility] CO2 30 21 - 32 mmol/L LAB CHEMISTRY METHOD 05/12/2024 1:22 PM [facility] Anion Gap 7 3 - 11 LAB CHEMISTRY METHOD 05/12/2024 1:22 PM [facility] Glucose 219(H) 70 - 100 mg/dL LAB CHEMISTRY METHOD 05/12/2024 1:22 PM [facility] BUN 28(H) 5 - 25 mg/dL LAB CHEMISTRY METHOD 05/12/2024 1:22 PM [facility] Creatinine 0.97 0.50 - 1.10 mg/dL LAB CHEMISTRY METHOD 05/12/2024 1:22 PM [facility] eGFR 57(L) >=60 mL/min/1. 73m2 LAB CHEMISTRY METHOD 05/12/2024 1:22 PM [facility] Comment:Calculation based on the??Chronic Kidney Disease Epidemiology Collaboration (CKD-EPI) equation refit??without adjustment for race. BUN/Creatinine Ratio 28.9 LAB CHEMISTRY METHOD 05/12/2024 1:22 PM [facility] Calcium 8.6 8.5 - 10.5 mg/dL LAB CHEMISTRY METHOD 05/12/2024 1:22 PM [facility] Blood Venous blood specimen / Unknown 05/12/2024 5:48 AM EST 05/12/2024 11:28 AM EST us Torrey Kwok MD LAB BLOOD ORDERABLES Final Resul t [facility] [address] [place] [address], * (ABNORMAL) Complete blood count (05/12/2024 5:48 AM EST) WBC 7.5 4.8 - 10.8 K/mcL LAB HEMETOLOGY METHOD 05/12/2024 12:44 PM [facility] RBC 3.30(L) 3.80 - 4.80 M/mcL LAB HEMETOLOGY METHOD 05/12/2024 12:44 PM [facility] Hemoglobin 10.5(L) 11.5 - 16.0 g/dL LAB HEMETOLOGY METHOD 05/12/2024 12:44 PM [facility] Hematocrit 33.5(L) 35.0 - 47.0 % LAB HEMETOLOGY METHOD 05/12/2024 12:44 PM [facility] MCV 100.9(H) 79.0 - 98.0 FL LAB HEMETOLOGY METHOD 05/12/2024 12:44 PM [facility] MCH 31.6 27.0 - 32.0 pcg LAB HEMETOLOGY METHOD 05/12/2024 12:44 PM [facility] MCHC 31.3(L) 32.0 - 37.0 g/dL LAB HEMETOLOGY METHOD 05/12/2024 12:44 PM [facility] RDW 20.0(H) 11.0 - 15.0 % LAB HEMETOLOGY METHOD 05/12/2024 12:44 PM [facility] Platelets 386 130 - 400 K/mcL LAB HEMETOLOGY METHOD 05/12/2024 12:44 PM [facility] MPV 10.3 7.0 - 11.0 FL LAB HEMETOLOGY METHOD 05/12/2024 12:44 PM EST [facility] NRBC 0.0 <1.0 % LAB HEMETOLOGY METHOD 05/12/2024 12:44 PM EST [facility] NRBC Absolute 0.00 <0.10 K/mcL LAB HEMETOLOGY METHOD 05/12/2024 12:44 PM EST [facility] Blood Venous blood specimen / Unknown 05/12/2024 5:48 AM EST 05/12/2024 11:25 AM EST Torrey Kwok MD LAB BLOOD ORDERABLES Final Resul t [facility] [address] [place] [address], documented in this encounter Visit Diagnoses Diagnosis 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
--- OUTSIDE RECORDS SUMMARY | 2024-05-28 14:09 | XMS_ITS | Clinical Summary ---
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 Main Lab [address] [place] [phone] Torrey Kwok MD Type 2 diabetes mellitus without complications ([facility]/HCC) 05/05/2024 Lab Requisition [facility] Lab [address] [place] [phone] Torrey Kwok MD Chronic kidney disease, stage 3 unspecified ([facility]); Type 2 diabetes mellitus with diabetic chronic kidney disease ([facility]) 05/01/2024 Lab Requisition [facility] Lab [address] [place] [phone] Torrey Kwok MD Type 2 diabetes mellitus without complications ([facility]/HCC) 04/30/2024 Lab Requisition [facility] Lab [address] [place] [phone] Torrey Kwok MD Type 2 diabetes mellitus without complications ([facility]) 04/29/2024 Lab Requisition [facility] Lab [address] [place] [phone] Torrey Kwok MD Dysuria 04/25/2024 Lab Requisition [facility] Lab [address] [place] [phone] Torrey Kwok MD Vitamin D deficiency, unspecified; 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 ([facility]); Heart failure, unspecified ([facility]); Essential (primary) hypertension from Last 3 Months [...] K/mcL LAB HEMETOLOGY METHOD 05/26/2024 11:12 AM [facility] RBC 3.30(L) 3.80 - 4.80 M/mcL LAB HEMETOLOGY METHOD 05/26/2024 11:12 AM EST [facility] Hemoglobin 10.7(L) 11.5 - 16.0 g/dL LAB HEMETOLOGY METHOD 05/26/2024 11:12 AM [facility] Hematocrit 34.0(L) 35.0 - 47.0 % LAB HEMETOLOGY METHOD 05/26/2024 11:12 AM EST [facility] MCV 102.1(H) 79.0 - 98.0 FL LAB HEMETOLOGY METHOD 05/26/2024 11:12 AM [facility] MCH 32.1(H) 27.0 - 32.0 pcg LAB HEMETOLOGY METHOD 05/26/2024 11:12 AM EST [facility] MCHC 31.5(L) 32.0 - 37.0 g/dL LAB HEMETOLOGY METHOD 05/26/2024 11:12 AM [facility] RDW 19.8(H) 11.0 - 15.0 % LAB HEMETOLOGY METHOD 05/26/2024 11:12 AM [facility] Platelets 418(H) 130 - 400 K/mcL LAB HEMETOLOGY METHOD 05/26/2024 11:12 AM EST [facility] MPV 10.0 7.0 - 11.0 FL LAB HEMETOLOGY METHOD 05/26/2024 11:12 AM EST [facility] NRBC 0.0 <1.0 % LAB HEMETOLOGY METHOD 05/26/2024 11:12 AM [facility] NRBC Absolute 0.00 <0.10 K/mcL LAB HEMETOLOGY METHOD 05/26/2024 11:12 AM [facility] Blood Venous blood specimen / Unknown Venipuncture / Unknown 05/26/2024 5:59 AM EST 05/26/2024 11:00 AM EST us Torrey Kwok MD LAB BLOOD ORDERABLES Final Resul t [facility] [address] [place] [address], * (ABNORMAL) B-type natriuretic peptide (05/26/2024 5:59 AM EST) BNP 320(H) <=100 pcg/mL LAB CHEMISTRY METHOD 05/26/2024 1:35 PM [facility] Blood Venous blood specimen / Unknown Venipuncture / Unknown 05/26/2024 5:59 AM EST 05/26/2024 11:00 AM EST us Torrey Kwok MD LAB BLOOD ORDERABLES Final Resul t [facility] [address] [place] [address], [place] [phone] * (ABNORMAL) Comprehensive metabolic panel (05/26/2024 5:59 AM EST) Only the most recent of2 resultswithin the time period is included. Pathologist [facility] Sodium 141 133 - 145 mmol/L LAB CHEMISTRY METHOD 05/26/2024 11:56 AM [facility] Potassium 3.5 3.5 - 5.5 mmol/L LAB CHEMISTRY METHOD 05/26/2024 11:56 AM [facility] Chloride 101 96 - 110 mmol/L LAB CHEMISTRY METHOD 05/26/2024 11:56 AM [facility] CO2 26 21 - 32 mmol/L LAB CHEMISTRY METHOD 05/26/2024 11:56 AM [facility] Anion Gap 14(H) 3 - 11 LAB CHEMISTRY METHOD 05/26/2024 11:56 AM [facility] Glucose 200(H) 70 - 100 mg/dL LAB CHEMISTRY METHOD 05/26/2024 11:56 AM [facility] BUN 35(H) 5 - 25 mg/dL LAB CHEMISTRY METHOD 05/26/2024 11:56 AM [facility] Creatinine 1.16(H) 0.50 - 1.10 mg/dL LAB CHEMISTRY METHOD 05/26/2024 11:56 AM EST [facility] eGFR 46(L) >=60 mL/min/1. 73m2 LAB CHEMISTRY METHOD 05/26/2024 11:56 AM [facility] Comment:Calculation based on the??Chronic Kidney Disease Epidemiology Collaboration (CKD-EPI) equation refit??without adjustment for race. BUN/Creatinine Ratio 30.2 LAB CHEMISTRY METHOD 05/26/2024 11:56 AM [facility] Calcium 8.9 8.5 - 10.5 mg/dL LAB CHEMISTRY METHOD 05/26/2024 11:56 AM [facility] AST (SGOT) 21 10 - 42 unit/L LAB CHEMISTRY METHOD 05/26/2024 11:56 AM [facility] ALT (SGPT) 20 10 - 60 unit/L LAB CHEMISTRY METHOD 05/26/2024 11:56 AM [facility] Alkaline Phosphatase 146(H) 42 - 121 unit/L LAB CHEMISTRY METHOD 05/26/2024 11:56 AM [facility] Total Protein 6.8 6.0 - 8.0 g/dL LAB CHEMISTRY METHOD 05/26/2024 11:56 AM [facility] Albumin 3.6 3.2 - 5.0 g/dL LAB CHEMISTRY METHOD 05/26/2024 11:56 AM [facility] Total Bilirubin 0.6 0.0 - 1.4 mg/dL LAB CHEMISTRY METHOD 05/26/2024 11:56 AM [facility] Blood Venous blood specimen / Unknown Venipuncture / Unknown 05/26/2024 5:59 AM EST 05/26/2024 11:00 AM EST us Torrey Kwok MD LAB BLOOD ORDERABLES Final Resul t [facility] [address] [place] [address], * (ABNORMAL) Basic metabolic panel (05/26/2024 5:59 AM EST) Only the most recent of6 resultswithin the time period is included. Sodium 141 133 - 145 mmol/L LAB CHEMISTRY METHOD 05/26/2024 11:50 AM [facility] Potassium 3.5 3.5 - 5.5 mmol/L LAB CHEMISTRY METHOD 05/26/2024 11:50 AM [facility] Chloride 101 96 - 110 mmol/L LAB CHEMISTRY METHOD 05/26/2024 11:50 AM [facility] CO2 26 21 - 32 mmol/L LAB CHEMISTRY METHOD 05/26/2024 11:50 AM [facility] Anion Gap 14(H) 3 - 11 LAB CHEMISTRY METHOD 05/26/2024 11:50 AM [facility] Glucose 200(H) 70 - 100 mg/dL LAB CHEMISTRY METHOD 05/26/2024 11:50 AM [facility] BUN 35(H) 5 - 25 mg/dL LAB CHEMISTRY METHOD 05/26/2024 11:50 AM [facility] Creatinine 1.16(H) 0.50 - 1.10 mg/dL LAB CHEMISTRY METHOD 05/26/2024 11:50 AM [facility] eGFR 46(L) >=60 mL/min/1. 73m2 LAB CHEMISTRY METHOD 05/26/2024 11:50 AM [facility] Comment:Calculation based on the??Chronic Kidney Disease Epidemiology Collaboration (CKD-EPI) equation refit??without adjustment for race. BUN/Creatinine Ratio 30.2 LAB CHEMISTRY METHOD 05/26/2024 11:50 AM [facility] Calcium 8.9 8.5 - 10.5 mg/dL LAB CHEMISTRY METHOD 05/26/2024 11:50 AM [facility] Blood Venous blood specimen / Unknown Venipuncture / Unknown 05/26/2024 5:59 AM EST 05/26/2024 11:00 AM EST us Torrey Kwok MD LAB BLOOD ORDERABLES Final Resul t [facility] [address] [place] [address], [place] [phone] * (ABNORMAL) Urinalysis with reflex microscopic and culture (04/28/2024 12:15 PM EST) Specific [place] Urine 1.021 1.003 - 1.030 LAB URINALYSIS [...] ORDERABLES Final Resul t Performing Organization Address City/[facility] [address]/ZIP Co de Phone Number [facility] [address] [place] [address], [place] [phone] * Frost urine culture tube (04/28/2024 12:15 PM EST) Extra Tube Hold for add-ons. 04/29/2024 11:01 AM [facility] Comment:Auto resulted. Urine Urine specimen obtained by clean catch procedure / Unknown 04/28/2024 12:15 PM EST 04/29/2024 9:53 AM EST us Torrey Kwok MD LAB URINE ORDERABLES Final Resul t Performing Organization Address [facility] [address]/ZIP Co de Phone Number [facility] [address] [place] [address], [place] [phone] * (ABNORMAL) Culture urine (04/28/2024 12:15 PM EST) Culture, Urine >100,000 CFU/mL Escherichia coli(A) ANDRE 05/01/2024 11:04 AM EST [facility] Urine Urine specimen from urinary conduit / Unknown Non-blood Collection / Unknown 04/28/2024 12:15 PM EST 04/29/2024 11:05 AM EST Narrative Organism Antibiotic Method Susceptibility Escherichia coli Amoxicillin/Clavulanate ANDRE <=2 ug/ml: Susceptible Escherichia coli Ampicillin/Sulbactam ANDRE <=2 ug/ml: Susceptible Escherichia coli Piperacillin/Tazobactam ANDRE <=4 ug/ml: Susceptible Escherichia coli Cefazolin (Urine) ANDRE <=1 ug/ml: Susceptible Escherichia coli Cefoxitin ANRDE <=4 ug/ml: Susceptible Escherichia coli Ceftazidime ANDRE [...] MICROBIOLOGY - GENERAL ORDER GENET Final Result [facility] [address] [place] [address], * (ABNORMAL) Vitamin D 25 hydroxy (04/25/2024 5:49 AM EST) Vit D, 25-Hydroxy 25.4(L) 30.0 - 80.0 ng/mL LAB CHEMISTRY METHOD 04/25/2024 10:35 AM EST [facility] Blood Venous blood specimen / Unknown Venipuncture / Unknown 04/25/2024 5:49 AM EST 04/25/2024 9:21 AM EST us Torrey Kwok MD LAB BLOOD ORDERABLES Final Resul t Performing Organization Address City/[facility] [address]/ZIP Co de Phone Number [facility] [address] [place] [address], [place] [phone] * Thyroid stimulating hormone (04/25/2024 5:49 AM EST) TSH 3.04 0.40 - 4.00 mcIU/mL LAB CHEMISTRY METHOD 04/25/2024 10:35 AM EST [facility] Blood Venous blood specimen / Unknown Venipuncture / Unknown 04/25/2024 5:49 AM EST 04/25/2024 9:21 AM EST us Torrey Kwok MD LAB BLOOD ORDERABLES Final Resul t Performing Organization Address [facility] [address] [facility]/ZIP Co de Phone Number [facility] [address] [place] [address], [place] [phone] * (ABNORMAL) Hemoglobin A1c (04/25/2024 5:49 AM EST) Hemoglobin A1C 8.7(H) <6.5 % LAB CHEMISTRY METHOD 04/25/2024 1:33 PM EST [facility] Mean Bld Glu Estim. 203 mg/dL LAB CHEMISTRY METHOD 04/25/2024 1:33 PM EST [facility] Blood Venous blood specimen / Unknown Venipuncture / Unknown 04/25/2024 5:49 AM EST 04/25/2024 9:21 AM EST us Torrey Kwok MD LAB BLOOD ORDERABLES Final Resul t [facility] [address] [place] [address], [place] [phone] * Folate (04/25/2024 5:49 AM EST) [facility] Folate 12.8 2.8 - 17.0 ng/ml LAB CHEMISTRY METHOD 04/25/2024 11:26 AM EST [facility] Blood Venous blood specimen / Unknown Venipuncture / Unknown 04/25/2024 5:49 AM EST 04/25/2024 9:21 AM EST Torrey Kwok MD LAB BLOOD ORDERABLES Final Resul t [facility] [address] [place] [address], [place] [phone] * Vitamin B12 (04/25/2024 5:49 AM EST) [facility] Vitamin B-12 711 250 - 900 pcg/mL LAB CHEMISTRY METHOD 04/25/2024 11:26 AM EST [facility] Blood Venous blood specimen / Unknown Venipuncture / Unknown 04/25/2024 5:49 AM EST 04/25/2024 9:21 AM EST us Torrey Kwok MD LAB BLOOD ORDERABLES Final Resul t [facility] [address] [place] [address], [place] [phone] from Last 3 Months Insurance MEDICARE [facility] Care Teams Crt Relationship Specialty Start Date End Date Torrey Kwok MD [address] [place] [address] [address] [place] [address] PCP - General Geriatric Medicine 04/25/24
--- NOTE | 2024-05-28 14:56 | A.OFFVIS_ITS ---
Intake Visit Reasons: PO- RT hip IMN, DOS 04/20/24 NE-follow up Intake Note: Gerri is an 88 year old female who presents today for a post operative RT hip IMN, DOS 04/20/24 NE. Patient reports she has mild pain. Patient daughter is with her today and states she has concerns due to a ulcer on her medial aspect of ankle and a bulge at incision site. Allergies codeine Allergy (Intermediate, Verified 05/28/24 15:18) TACHYCARDIA nitrofurantoin [Macrobid] Allergy (Unknown, Verified 05/28/24 15:18) confusion pravastatin Allergy (Unknown, Verified 05/28/24 15:18) Unknown rosuvastatin [Crestor] Allergy (Unknown, Verified 05/28/24 15:18) Unknown Sulfa (Sulfonamide Antibiotics) Allergy (Unknown, Verified 05/28/24 15:18) unknown sulfamethoxazole [From Bactrim] Allergy (Unknown, Verified 05/28/24 15:18) Unknown trimethoprim [From Bactrim] Allergy (Unknown, Verified 05/28/24 15:18) Unknown amlodipine Adverse Reaction (Intermediate, Verified 05/28/24 15:18) leg swelling digoxin Adverse Reaction (Intermediate, Verified 05/28/24 15:18) Confusion HPI HPI PO- RT hip IMN, DOS 04/20/24 NE-follow up: Details: Ms. Sanchez is an 88-year-old female who presents to the office today accompanied by her daughter status post right hip IM nail performed on 04/20/[address] Kumar. Patient is currently at [facility]. The daughter reports that the patient has been struggling to get out of bed and work with physical therapy due to pain in the right hip. The patient also sustained a small abrasion to the medial aspect of the right ankle from her wheelchair. The facility has been performing daily dressing changes and has a wound care physician coming in once a week. Patient does have a past medical history significant for diabetes. [facility] Medical History Urinary tract infection with fever Persistent atrial fibrillation Left thigh pain Abdominal mass, LUQ (left upper quadrant) Iliotibial band syndrome of left side UTI (urinary tract infection) Herpes zoster Orthostatic hypotension Acute hyponatremia Weakness COVID-19 Breast asymmetry Atrial fibrillation with rapid ventricular response Hyperkalemia Essential hypertension Atherosclerotic cardiovascular disease Chronic heart failure with preserved ejection fraction (HFpEF) Iliotibial band syndrome of right side Disc degeneration, lumbar Cognitive dysfunction 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 Atrial fibrillation Osteopenia Hypothyroid Spinal stenosis of lumbar region Degenerative disc disease, lumbar Type 2 diabetes mellitus with hyperglycemia Surgical History History of removal of cyst History of appendectomy History of eye surgery History of cataract surgery History of cholecystectomy History of section History of knee replacement History of hip replacement Family History Father CVD (cardiovascular disease) Mother CVD (cardiovascular disease) Stroke Social History Household Members: None Household Members Other:: son comes 3 days a week, daughter lives 5 minutes away visits frequently Housing: House Do you presently have visiting nurse or other home services: No Alcohol intake: never Comment: post cardioversion Patient Tobacco Use Status: Former Tobacco user Tobacco use type: Cigarette Years Smoked: <1 e-Cigarette/Vaping Use: Former Use Second Hand Smoke Exposure: No Advance Directives Date on File: 08/29/21 service: No Current occupational status: retired Cognitive needs: Yes (Walker) Hearing needs: No Vision needs: Yes Review of Systems Const All systems reviewed & are unremarkable except as noted in HPI and below Physical Exam Const General: cooperative, healthy appearing and no acute distress Resp Effort & Inspection: normal respiratory effort and able to speak in complete sentences Cardio Rate: regular rate Peripheral pulses: Peripheral pulses 2+ throughout Extrem Other: Right hip prior incision site is well approximated and healed. There is no surrounding erythema or drainage. No signs of infection. Upon palpation it does feel as though there is a hematoma over the area. Patient is able to stand on her own. NVI. Right ankle: Medial malleolar abrasion roughly the size of a nickel. There is surrounding erythema. There is granulation tissue in the wound. Assessment & Plan Assessment & Plan (1) Closed right hip fracture: Code(s): S72.001A - Fracture of unspecified part of neck of right femur, initial encounter for closed fracture Category: Medical (2) Ulcer of right ankle: Code(s): L97.319 - Non-pressure chronic ulcer of right ankle with unspecified severity Category: Medical Plan Ms. Sanchez is an 88-year-old female who presents to the office today accompanied by her daughter status post right hip IM nail performed on 04/20/[address] Kumar. Patient is currently at [facility]. The daughter reports that the patient has been struggling to get out of bed and work with physical therapy due to pain in the right hip. The patient also sustained a small abrasion to the medial aspect of the right ankle from her wheelchair. The facility has been performing daily dressing changes and has a wound care physician coming in once a week. Patient does have a past medical history significant for diabetes. While in the office today, I discussed with the patient's daughter the importance of continuing the physical therapy to work on glute core and quad strengthening as well as gait training with the use of a walker. The daughter does report that the patient was using a walker prior to this injury and we did discuss that sometimes patients who are ambulating with use of a walker may need to rely more on a wheelchair after hip fracture. We will continue to push physical therapy to allow the patient to be as ambulatory as she is able to. Additionally, the dressing was removed to view the right ankle medial malleolar ulcer and was redressed with a pink foam dressing. The patient would benefit from a recliner in her room to avoid any additional abrasions to the lower extremity from her wheelchair. Additionally I have recommended more regular wound care then once a week. She should have daily dressing changes. I have recommended that they consider starting Keflex as the patient is a diabetic. Patient will follow up in 6 weeks with repeat x-rays, sooner if needed. X-rays of the right femur which were obtained while in the office today and were reviewed by me, Maia Pérez PA-C, revealed intact orthopedic hardware with routine healing. The imaging was also reviewed with Dr. Kumar who was available but did not see the patient in the office today. Orders: Orders XR femur RT 2V Today M25.551 - Pain in right hip, S72.001A - Fracture of unspecified part of neck of right femur, initial encounter for closed fracture Coding Level of Care Code Global (19944) Diagnoses Closed right hip fracture S72.001A Ulcer of right ankle L97.319
== END 2024-05-28 15:30 | disposition home or self-care (01) ==
PROVIDERS: Visit Provider Physician Assistant
DX: S72.001A Fracture of unspecified part of neck of right femur, initial encounter for closed fracture (principal); L97.319 Non-pressure chronic ulcer of right ankle with unspecified severity
CPT/HCPCS: 99024

== ENCOUNTER → 2024-05-28 13:49 | Outpatient (BNV) | payer MEDICARE, SELFPAY | PROVIDERS: Visit Provider Radiology Diagnostic Radiology | DX: M25.551 Pain in right hip (principal) | CPT/HCPCS: 73552 ==

== ENCOUNTER 2024-06-14 21:25 | Emergency (ER) | payer MEDICARE, SELFPAY ==
--- NOTE | ~2024-06-14 | CT_ITS ---
CLINICAL HISTORY: headache , ams on xarelto CT head without contrast Comparison: Head CT from 11/16/2023 Findings: No acute intracranial hemorrhage. Moderate volume loss is generalized. Multifocal white matter lesions likely due to small-vessel ischemic disease. No large arterial territorial infarction by CT. 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 Vascular calcifications, scleral calcifications, and dural calcifications are redemonstrated. No acute skull fracture. Mild mucosal thickening of the imaged paranasal sinuses. Imaged mastoid air cells are well aerated IMPRESSION: No acute intracranial abnormality by CT and no significant change compared to 11/16/2023 This document has been electronically signed by: Michael Mares MD on 06/14/2024 23:11:07
[2024-06-14 21:42] VITALS: BP 125/45; BP 92/52; PULSE 65; PULSE 76; RESP 18; TEMP 36.5; O2SAT 97; O2SAT 98; BMI 26.6
--- NOTE | 2024-06-14 21:43 | ED.AMS ---
HPI - Altered Mental Status General Chief Complaint: Altered Mental Status Stated Complaint: AMS, hypotension, lethargic Time Seen by Provider: 06/14/24 21:39 Source: patient, EMS and RN notes reviewed Mode of arrival: EMS Limitations: altered mental status History of Present Illness ED Provider: HPI narrative: Patient with history of paroxysmal AFib on Xarelto comes here from longterm for increased confusion did not sleep last night sleepy all day also complaining of headache no recent fall no nausea no vomiting no fever no cough no abdominal pain patient's blood pressure was 60 by 48 longterm when EMS reached was 92/42 patient received 200 cc of normal saline on arrival blood pressure was 125/45 Related Data Home Medications ?Medication ?Instructions ?Recorded ?Confirmed travoprost 0.004 % eye drops 1 drp ophthalmic (eye) BEDTIME 06/01/20 05/05/24 acetaminophen 500 mg tablet 1,000 mg PO TID PRN Pain 08/17/21 05/05/24 glycerin (adult) 1 supp DC DAILY PRN Constipation 08/17/21 04/20/24 cholecalciferol (vitamin D3) 25 25 mcg PO DAILY 01/01/23 05/05/24 mcg (1,000 unit) capsule furosemide 40 mg tablet 40 mg PO DAILY 11/17/23 05/05/24 insulin glargine U-300 conc 300 12 unit subcut DAILY 11/17/23 05/05/24 unit/mL (1.5 mL) subcutaneous pen (Toujeo SoloStar U-300 Insulin) insulin lispro 100 unit/mL 1 sliding scale dose subcut TIDAC 11/17/23 05/05/24 subcutaneous pen (Humalog KwikPen (U-100) Insulin) calcitriol 0.25 mcg capsule 0.25 mcg PO Q48H 04/20/24 05/05/24 metoprolol succinate 25 mg 25 mg PO BEDTIME PRN high BP 04/20/24 05/05/24 tablet,extended release 24 hr rivaroxaban 15 mg tablet (Xarelto) 15 mg PO DAILY@1700 04/20/24 05/05/24 dextrose 15 gram/33 gram oral gel g PO 05/05/24 05/05/24 packet (Dex4 Glucose) melatonin 5 mg capsule mg PO .8 pm PRN insomnia 05/05/24 05/05/24 tramadol 50 mg tablet 50 mg PO DAILY PRN pain 05/05/24 05/05/24 Previous Rx's ?Medication ?Instructions ?Recorded flash glucose sensor (FreeStyle #1 ea 05/23/23 Madeline 14 Day Sensor kit) flash glucose sensor (FreeStyle #6 ea 05/23/23 Madeline 14 Day Sensor kit) simvastatin 10 mg tablet 10 mg PO BEDTIME #90 tabs 08/24/23 metoprolol succinate 100 mg 100 mg PO DAILY 90 days #90 tabs 08/30/23 tablet,extended release 24 hr pen needle, diabetic 32 gauge x #400 ea 09/17/23 (BD Eveline 2nd Gen Pen Needle) amiodarone 200 mg tablet 200 mg PO DAILY 90 days #90 tabs 10/29/23 levothyroxine 125 mcg tablet 125 mcg PO DAILY@0600 #90 tabs 12/17/23 lactulose 10 gram/15 mL oral 30 ml PO DAILY PRN for 02/01/24 solution constipation #946 mL Allergies Allergy/AdvReac Type Severity Reaction Status Date / Time codeine Allergy Intermediate TACHYCARDIA Verified 06/14/24 21:46 nitrofurantoin [Macrobid] Allergy Unknown confusion Verified 06/14/24 21:46 pravastatin Allergy Unknown Unknown Verified 06/14/24 21:46 rosuvastatin [Crestor] Allergy Unknown Unknown Verified 06/14/24 21:46 Sulfa (Sulfonamide Allergy Unknown unknown Verified 06/14/24 21:46 Antibiotics) sulfamethoxazole Allergy Unknown Unknown Verified 06/14/24 21:46 [From Bactrim] trimethoprim [From Bactrim] Allergy Unknown Unknown Verified 06/14/24 21:46 amlodipine AdvReac Intermediate leg Verified 06/14/24 21:46 swelling digoxin AdvReac Intermediate Confusion Verified 06/14/24 21:46 Review of Systems Review of Systems: Yes all other systems are reviewed and are negative PMF Past Medical History Medical History Urinary tract infection with fever Persistent atrial fibrillation Left thigh pain Abdominal mass, LUQ (left upper quadrant) Iliotibial band syndrome of left side UTI (urinary tract infection) Herpes zoster Orthostatic hypotension Acute hyponatremia Weakness COVID-19 Breast asymmetry Atrial fibrillation with rapid ventricular response Hyperkalemia Essential hypertension Atherosclerotic cardiovascular disease Chronic heart failure with preserved ejection fraction (HFpEF) Iliotibial band syndrome of right side Disc degeneration, lumbar Cognitive dysfunction 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 Atrial fibrillation Osteopenia Hypothyroid Spinal stenosis of lumbar region Degenerative disc disease, lumbar Type 2 diabetes mellitus with hyperglycemia Surgical History History of removal of cyst History of appendectomy History of eye surgery History of cataract surgery History of cholecystectomy History of section History of knee replacement History of hip replacement Family History Family History Father CVD (cardiovascular disease) Mother CVD (cardiovascular disease) Stroke Social History Social History Household Members: None Household Members Other:: son comes 3 days a week, daughter lives 5 minutes away visits frequently Housing: House Do you presently have visiting nurse or other home services: No Alcohol intake: never Comment: post cardioversion Patient Tobacco Use Status: Former Tobacco user Tobacco use type: Cigarette Years Smoked: <1 Smoked in Last 30 Days: No e-Cigarette/Vaping Use: Former Use Second Hand Smoke Exposure: No Advance Directives: Yes Advance Directives on File: Yes Advance Directives Date on File: 08/29/21 service: No Current occupational status: retired Cognitive needs: Yes (Walker) Hearing needs: No Vision needs: Yes Physical Exam ED Vital Signs: Vital Signs - 24 hr 06/14/24 21:42 06/14/24 21:47 06/14/24 22:29 Temperature 97.7 F 97.7 F Pulse Rate 76 76 87 Respiratory Rate 18 18 14 Blood Pressure 125/45 L 125/45 L 135/64 Pulse Oximetry 98 98 99 Oxygen Delivery Method Room Air Room Air Room Air 06/14/24 23:47 06/15/24 00:21 06/15/24 00:25 Temperature Pulse Rate 84 Respiratory Rate 10 L Blood Pressure 95/48 L 95/44 L 108/68 Pulse Oximetry 95 Oxygen Delivery Method Room Air 06/15/24 00:37 06/15/24 01:37 06/15/24 04:49 Temperature Pulse Rate 78 81 76 Respiratory Rate 11 L 10 L 16 Blood Pressure 104/69 126/62 102/56 L Pulse Oximetry 97 96 96 Oxygen Delivery Method Room Air Room Air Room Air 06/15/24 05:56 Temperature 98.8 F Pulse Rate 72 Respiratory Rate 11 L Blood Pressure 150/64 H Pulse Oximetry 96 Oxygen Delivery Method Room Air BMI result Body Mass Index 26.6 Appearance: Alert. Oriented X2. No acute distress. Eyes: No pallor or icterus ENT: Pharynx dry Oral Mucosa moist Neck: Normal inspection. Neck supple. CVS: Normal heart rate and rhythm. Pulses normal. Respiratory: No respiratory distress. Equal air entry bilateral, no wheezing/rales/rhonchi Abdomen: Soft and nontender. Bowel sounds are present, no mass palpable, no CVA tenderness Skin: Skin warm and dry. Normal skin color. Normal skin turgor. Extremities: No lower extremity edema. No calf tenderness Neuro: Oriented X 2. No motor deficit. No sensory deficit.No cerebellar signs , cranial nerves II-XII intact Medications Administered Discontinued Medications Generic Name Dose Route Start Last Admin Trade Name Freq PRN Reason Stop Dose Admin Sodium Chloride 1,000 mls @ 999 mls/hr 06/14/24 21:46 06/14/24 23:47 Ns IV 06/14/24 22:46 Infused .Q1H1M ONE Infusion Medical Decision Making Medical Decision Making [facility] Narrative: Patient with decreased oral intake with poor sleep received trazodone and gabapentin prior to arrival received IV fluids blood pressure improved no signs of infection patient does have similar presentation in the past will discharge patient back to longterm no signs of infection Differential Diagnosis Differential Diagnoses: The differential diagnosis associated with the presentation includes Metabolic encephalopathy/UTI/JAZ Lab Data [facility] Lab Attestation statement: I reviewed the patient's lab results. 06/14/24 22:27 06/14/24 22:27 Labs: Lab Results 06/14/24 06/14/24 Range/Units 22:27 22:28 WBC 7.3 (4.8-10.8) X10*3/uL RBC 3.43 L (4.20-5.50) X10*6/uL Hgb 11.1 L (12.0-16.0) g/dl Hct 33.5 L D (37.0-47.0) % MCV 97.7 (80.0-98.0) fL MCH 32.4 (27.0-33.0) pg MCHC 33.1 (31.0-35.0) g/dl RDW 18.6 H (11.0-16.0) % Plt Count 332 D (160-400) X10*3/uL MPV 10.2 (9.4-12.3) fL Immature Gran % (Auto) 0.7 H (0.0-0.4) % Neut % (Auto) 64.7 (45-73) % Lymph % (Auto) 15.3 L (20-40) % Creek % (Auto) 13.8 H (2-11) % Eos % (Auto) 3.7 (0-4) % Baso % (Auto) 1.8 (0-2) % Lymph # (Auto) 1.1 L (1.2-4.9) X10*3/uL Creek # (Auto) 1.0 (0.1-1.2) X10*3/uL Eos # (Auto) 0.3 (0.0-0.4) X10*3/uL Baso # (Auto) 0.1 (0.0-0.2) X10*3/uL Abs Immat Gran (auto) 0.05 H (0.00-0.03) X10*3/uL Absolute Neuts (auto) 4.7 (2.0-8.3) x10*3/uL Absolute Nucleated RBC 0.000 (0.0-0.012) X10*3/uL Nucleated RBC % (auto) 0.0 (0.0-0.2) /100WBC Sodium 139 (135-145) mmol/L Potassium 4.0 (3.3-5.1) mmol/L Chloride 102 (96-108) mmol/L Carbon Dioxide 27 (22-29) mmol/L Anion Gap 14 (12-20) BUN 41 H (9-16) mg/dL Creatinine 1.48 H (0.5-1.4) mg/dL Estim Creat Clear Calc 21.9 Estimated GFR 33 Random Glucose 215 H (60-115) mg/dL Lactic Acid 1.7 (0.5-2.0) mmol/L Calcium 9.2 D (8.4-10.2) mg/dL Magnesium 2.1 (1.6-2.6) mg/dL Total Bilirubin 0.5 (0.0-1.0) mg/dL AST 23 (5-31) U/L ALT 17 (0-31) U/L Alkaline Phosphatase 146 H (39-117) U/L Total Protein 6.9 (6.5-8.0) g/dL Albumin 3.4 L (3.5-5.0) g/dL Urine Color Yellow Urine Appearance Clear Urine pH 5.0 (5.0-9.0) Ur Specific [place] 1.015 (1.005-1.025) Urine Protein Trace (Neg-Trace) mg/dL Urine Glucose (UA) 500 H (Negative) mg/dL Urine Ketones Trace (Negative) mg/dL Urine Blood Negative (Negative) Urine Nitrite Negative (Negative) Ur Leukocyte Esterase Negative (Negative) Independent Interpretation I performed an independent interpretation of an: EKG and CT Scan Interpretation: AFib with ventricular rate of 86 beats per minute left axis deviation LVH no acute STT wave changes no acute ischemia Radiology Impression Discussion of test interpretation with radiology: I have reviewed the radiologist's reading. Radiologist Impression: IMPRESSION: No acute intracranial abnormality by CT and no significant change compared to 11/16/2023 This document has been electronically signed by: Michael Mares MD on 06/14/2024 23:11:07 Discharge Plan Discharge Clinical Impression: Acute metabolic encephalopathy, JAZ (acute kidney injury) Patient Disposition: Xfer SNF Transfer Details: Patient noted to be slightly dehydrated received IV fluids workup otherwise is negative Instructions: Acute Kidney Injury (DC), Weakness (ED) Additional Instructions: Drink plenty of fluid Follow with your PCP if not better Prescriptions: No Action cholecalciferol (vitamin D3) 25 mcg (1,000 unit) capsule 25 mcg PO DAILY (DME) FreeStyle Madeline 14 Day Sensor Kit See Rx Instructions .ROUTE .MEDSUPPLY Qty: 1 6RF Rx Instructions: Dx: E11.65 As directed, 14 days (DME) FreeStyle Madeline 14 Day Sensor Kit See Rx Instructions .Route Qty: 6 3RF Rx Instructions: As directed simvastatin 10 mg tablet 10 mg PO BEDTIME Qty: 90 3RF metoprolol succinate 100 mg tablet extended release 24 hr 100 mg PO DAILY 90 Days Qty: 90 3RF amiodarone 200 mg tablet 200 mg PO DAILY 90 Days Qty: 90 2RF levothyroxine 125 mcg tablet 125 mcg PO DAILY@0600 Qty: 90 3RF lactulose 10 gram/15 mL solution 30 ml PO DAILY PRN (Reason: for constipation) Qty: 946 0RF travoprost 0.004 % drops 1 drp ophthalmic (eye) BEDTIME acetaminophen 500 mg Tablet 1,000 mg PO TID PRN (Reason: Pain) glycerin (adult) Suppository 1 supp DC DAILY PRN (Reason: Constipation) furosemide 40 mg tablet 40 mg PO DAILY insulin glargine U-300 conc [Toujeo SoloStar U-300 Insulin] 300 unit/mL (1.5 mL) insulin pen 12 unit subcut DAILY Rx Instructions: or as directed insulin lispro [Humalog KwikPen Insulin] 100 unit/mL insulin pen 1 sliding scale dose subcut TIDAC Protocol: Insulin Correction Scale Less than or equal to 110 ---- Give (units): 0 111 to 150 Give (units): 0 151 to 200 Give (units): 2 201 to 250 Give (units): 4 251 to 300 Give (units): 6 301 to 350 Give (units): 8 Greater than 350 Give (units): 10 Call MD if Blood Glucose > : 350 calcitriol 0.25 mcg capsule 0.25 mcg PO Q48H Xarelto 15 mg tablet 15 mg PO DAILY@1700 metoprolol succinate 25 mg tablet extended release 24 hr 25 mg PO BEDTIME PRN (Reason: high BP ) (DME) pen needle, diabetic [BD Eveline 2nd Gen Pen Needle] 32 gauge x needle See Rx Instructions .ROUTE .COMPLEX Qty: 400 3RF Dose Instruction: USEN TO INJECT INSULIN FOUR TIMES DAILY Rx Instructions: USEN TO INJECT INSULIN FOUR TIMES DAILY tramadol 50 mg tablet 50 mg PO DAILY PRN (Reason: pain) melatonin 5 mg capsule PO .8 pm PRN (Reason: insomnia) dextrose [Dex4 Glucose] 15 gram/33 gram gel in packet PO Print Language: Ukrainian
--- NOTE | 2024-06-14 21:46 | ECG_ITS ---
Test Reason : at fib Blood Pressure : */* mmHG Vent. Rate : 86 BPM Atrial Rate : * BPM P-R Int : * ms QRS Dur : 102 ms QT Int : 434 ms P-R-T Axes : * -59 74 degrees QTcB Int : 519 ms Atrial fibrillation with a competing junctional pacemaker Left axis deviation Minimal voltage criteria for LVH, may be normal variant ( Riley product ) Inferior infarct , age undetermined Abnormal ECG When compared with ECG of 21-Apr-2024 18:37, Incomplete left bundle branch block is no longer Present Inferior infarct is now Present Referred By: Alexis Ellison Electronically Signed By: MATTEO CARNEY MD
[2024-06-14 21:47] VITALS: BP 125/45; PULSE 76; RESP 18; TEMP 36.5; O2SAT 98
--- OUTSIDE RECORDS SUMMARY | 2024-06-14 22:12 | XMS_ITS | Encounter Summary ---
Author Organization [facility] Address [id number] [place] [id number] Care Team Providers Care Microwave Oven Assembler Name Role Phone Torrey Kwok MD Primary Care Provider [phone] Encounter Details Date Type Department Care Team (Late st Contact Info) Description 06/14/2024 Lab Requisition [facility] - Main Lab [address] [place] [address] Torrey Kwok MD [address] [place] [address] Type 2 diabetes mellitus with diabetic chronic [...] as of this encounter Plan of Treatment Scheduled Orders Name Type Priority Associated Diagnoses Orde r Schedule Complete blood count Lab Routine Type 2 diabetes mellitus with diabetic chronic kidney disease (CMS/HCC) Essential (primary) hypertension Heart failure, unspecified (CMS/HCC) 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) Ordered: 06/14/2024 Basic metabolic panel Lab Routine Type 2 diabetes mellitus with diabetic chronic kidney disease (CMS/HCC) Essential (primary) hypertension Heart failure, unspecified (CMS/HCC) 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) Ordered: 06/14/2024 documented as of this encounter Visit Diagnoses Diagnosis Type 2 diabetes mellitus with diabetic chronic kidney disease (CMS/HCC) Essential (primary) hypertension Unspecified essential hypertension Heart failure, unspecified (CMS/HCC) Heart failure, unspecified 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
--- OUTSIDE RECORDS SUMMARY | 2024-06-14 22:12 | XMS_ITS | Encounter Summary ---
Author Organization [facility] Address [address] [place] [address] Phone Care Team Providers Care Wire Welder Name Role Phone Monique White MD Primary Care Provider [phone] Encounter Details Date Type Department Care Team (Late st Contact Info) Description 06/07/2021 Telephone [facility] [address] [place] [address] Sohail Penaloza MD Social History [...] with you. Please call her back at [phone] Thank you documented in this encounter Plan of Treatment Not on file documented as of this encounter Visit Diagnoses Not on filedocumented in this encounter Care Teams Wire Welder Relationship Specialty Start Date End Date Monique White MD [facility] [address] [place] PCP - General Internal Medicine 03/11/21 documented as of this encounter
--- OUTSIDE RECORDS SUMMARY | 2024-06-14 22:12 | XMS_ITS | Encounter Summary ---
Author Organization [facility] Address [address] [place] [address] Care Team Providers Care Scroll Assembler Name Role Phone Torrey Kwok MD Primary Care Provider [phone] Encounter Details Date Type Department Care Team (Late st Contact Info) Description 04/30/2024 Lab Requisition [facility] - Main Lab [address] [facility] [address] Torrey Kwok MD [address] [place] [address] Type 2 diabetes mellitus without complications (CMS/HCC) [...] % LAB HEMETOLOGY METHOD 04/30/2024 2:51 PM [facility] MCV 101.5(H) 79.0 - 98.0 FL LAB HEMETOLOGY METHOD 04/30/2024 2:51 PM EST [facility] MCH 31.3 27.0 - 32.0 pcg LAB HEMETOLOGY METHOD 04/30/2024 2:51 PM [facility] MCHC 30.8(L) 32.0 - 37.0 g/dL LAB HEMETOLOGY METHOD 04/30/2024 2:51 PM [facility] RDW 17.1(H) 11.0 - 15.0 % LAB HEMETOLOGY METHOD 04/30/2024 2:51 PM [facility] Platelets 391 130 - 400 K/mcL LAB HEMETOLOGY METHOD 04/30/2024 2:51 PM [facility] MPV 10.8 7.0 - 11.0 FL LAB HEMETOLOGY METHOD 04/30/2024 2:51 PM [facility] NRBC 0.5 <1.0 % LAB HEMETOLOGY METHOD 04/30/2024 2:51 PM [facility] NRBC Absolute 0.03 <0.10 K/mcL LAB HEMETOLOGY METHOD 04/30/2024 2:51 PM [facility] Blood Venous blood specimen / Unknown Venipuncture / Unknown 04/30/2024 6:31 AM EST 04/30/2024 1:53 PM EST us Torrey Kwok MD LAB BLOOD ORDERABLES Final Resul t [facility] [address] [place] [address], documented in this encounter Visit Diagnoses Diagnosis Type 2 diabetes mellitus without complications (CMS/HCC) documented in this encounter Care Teams Scroll Assembler Relationship Specialty Start Date End Date Torrey Kwok MD [address] [place] [address] [address] [place] [address] PCP - General Geriatric Medicine 04/25/24 documented as of this encounter
--- OUTSIDE RECORDS SUMMARY | 2024-06-14 22:12 | XMS_ITS ---
Author Organization [facility] Address [address] [place] [address] Care Team Providers Care Transportation Maintenance Specialist Name Role Phone Monique White MD Primary Care Provider Yane Epps Jr, John Unavailable [phone] REASON FOR VISIT refill omeprazole Medications Medication SIG (Take, Route, Frequency, Duration) Notes Start Date End Date Status Omeprazole 20 TAKE 1 CAPSULE BY MO UTH TWICE DAILY for 90 days Active Encounters Encounter Location Date Provider Diagnosis [facility] [address] [place] [address] 07/09/2023 John Epps Jr Plan Of Treatment Medication Medication Name Sig Start Date Stop Date Notes Omeprazole 20 TAKE 1 CAPSULE BY MO UTH TWICE DAILY for 90 days Progress Notes * CHARLY SCHWARTZ RDOB:[birth year] (87 yo F)Acc No.[id number]:07/09/2023 Patient:?CHARLY SCHWARTZ :1935???Age:87 Y???Sex:Female Address:[place] [address] * Refills? Refill Omeprazole Capsule Delayed Release, 20, 180, TAKE 1 CAPSULE BY MOUTH TWICE DAILY, 90 days, Refills=3 * true * Date:? Generated for Awilda diggs/Lee/eTransmitting on:?06/14/2024 10:12 PM EST
--- OUTSIDE RECORDS SUMMARY | 2024-06-14 22:13 | XMS_ITS | Patient Health Record ---
Author Organization [facility] Address [address] [facility] [place] [address] Care Team Providers Care Carpenter Packing Name Role Phone Monique White Primary Care Provider Arturo Brown Unavailable [phone] Antonio Lewis Unavailable [phone] Allergies Allergen (clinical drug ingredient) Drug/Non Drug [...] Administration Date Status Comme nts Influenza Unknown 02/23/2015 Administered Influenza Unknown 01/09/2017 Administered not complete d this year Influenza Unknown 01/07/2018 Administered Influenza Unknown 01/28/2019 Administered Influenza Unknown 01/31/2022 Administered Influenza Unknown 01/07/2023 Administered COVID-19 Pfizer BioNTech Vaccine Unknown 02/15/2021 Administered 1st 05/24/2020 2nd 06/15/2020 Social History Tobacco Use: Social History Observation [...] Problem Acquired hammer toe of right foot (5589707723080484 ) Other hammer toe(s) (acquired), right foot (M20.41) Active confirmed Problem Acquired hammer toe of left foot (1721100415175062 ) Other hammer toe(s) (acquired), left foot (M20.42) Active confirmed Problem Polyneuropathy due to diabetes mellitus type I (870767203) Type 1 diabetes mellitus with diabetic polyneuropathy (E10.42) Active confirmed Vital Signs Blood pressure diastolic 84 mm Hg 12/04/2023 Height 4 ft 10 in in 02/05/2024 Blood pressure systolic 128 mm Hg 12/04/2023 Weight 129 lbs 02/05/2024 BMI 26.96 kg/m2 02/05/2024 Procedures Procedure Date Ordered Date Performed Result Body Sit e 27459-Bcakoemsr, Toes 06/28/2023 N/A 50534-XFOKFZU NAIL, 6 OR MORE 09/21/2023 N/A 66578-Jfcxeydz Plate 09/21/2023 N/A 68497-KTCK SKIN LESIONS, 2 TO 4 09/21/2023 N/A 96811-REPHWTC NAIL, 6 OR MORE 12/04/2023 N/A 71846-WEEN SKIN LESIONS, 2 TO 4 12/04/2023 N/A 31668-USUQVES NAIL, 6 OR MORE 02/05/2024 N/A 54801-SGYB SKIN LESIONS, 2 TO 4 02/05/2024 N/A Encounters Encounter Location Date Provider Diagnosis [address] [address] 06/28/2023 Antonio Lewis Type 1 diabetes mellitus with diabetic polyneuropathy E10.42 ; Closed fracture of right foot, initial encounter S92.901A ; Pain in right foot M79.671 and Closed nondisplaced fracture of middle phalanx of lesser toe of right foot, initial encounter S92.524A [address] [address] 09/21/2023 Arturo Simon Type 1 diabetes mellitus with diabetic polyneuropathy E10.42 ; Tinea unguium B35.1 and Ingrown nail L60.[address] [address] 12/04/2023 Arturo Simon Type 1 diabetes mellitus with diabetic polyneuropathy E10.42 and Tinea unguium B35.[address] [address] 02/05/2024 Arturo Simon Type 1 diabetes mellitus with diabetic polyneuropathy E10.42 ; Onychomycosis B35.1 ; Other hammer toe(s) (acquired), right foot M20.41 and Other hammer toe(s) (acquired), left foot M20.[address] [address] 08/01/2023 Arturo Simon [address] [address] 05/05/2024 Arturo Simon Assessments Encounter Date Diagnosis (ICD Code) Assessment Notes Treatment Notes Treatment Clinical Notes Section Notes 06/28/2023 Type 1 diabetes mellitus with diabetic polyneuropathy (ICD-10 - E10.42) 06/28/2023 Closed fracture of right foot, initial encounter (ICD-10 - S92.901A) 02/05/2024 Type 1 diabetes mellitus with diabetic polyneuropathy (ICD-10 - E10.42) 02/05/2024 Onychomycosis (ICD-10 - B35.1) 12/04/2023 Type 1 diabetes mellitus with diabetic polyneuropathy (ICD-10 - E10.42) 12/04/2023 Tinea unguium (ICD-10 - B35.1) 09/21/2023 Type 1 diabetes mellitus with diabetic polyneuropathy (ICD-10 - E10.42) 09/21/2023 Tinea unguium (ICD-10 - B35.1) 02/05/2024 Other hammer toe(s) [...] Test Test Name Order Date Hemoglobin A1c 01/05/2015 Hemoglobin A1c 06/23/2014 Glucose Fasting 06/23/2014 X ray : Foot, right 3V 06/28/2023 47560-EVWHXDS NAIL, 6 OR MORE 09/21/2023 62609-IEIQEAM NAIL, 6 OR MORE 12/04/2023 96166-BQJNRQY NAIL, 6 OR MORE 01/10/2022 70982-ZBCPBBB NAIL, 6 OR MORE 12/12/2022 62968-HFAJAOV NAIL, 6 OR MORE 03/06/2023 06733-DWXPPIZ NAIL, 6 OR MORE 05/22/2023 45976-EAPVPKD NAIL, 6 OR MORE 09/12/2011 90453-GJQLHXI NAIL, 6 OR MORE 12/19/2011 35684-USEGSAD NAIL, 6 OR MORE 12/05/2016 55858-DUZXBIV NAIL, 6 OR MORE 03/06/2017 73422-VUIMNKQ NAIL, 6 OR MORE 05/13/2019 20320-YJPYDTR NAIL, 6 OR MORE 08/12/2019 08622-TXHUKGW NAIL, 6 OR MORE 05/25/2020 48011-XPCKMMS NAIL, 6 OR MORE 05/24/2021 82858-YXHJKSX NAIL, 6 OR MORE 10/11/2021 31266-NVJIHKW NAIL, 6 OR MORE 02/05/2024 95058-MOGDASQ NAIL, 6 OR MORE 04/18/2022 77051-SHONBCF NAIL, 6 OR MORE 02/22/2021 96679-MQUWIYX NAIL, 6 OR MORE 11/23/2020 21428-QJLDJNR NAIL, 6 OR MORE 08/24/2020 69571-ZGUCNKW NAIL, 6 OR MORE 02/17/2020 93377-ZBSMYQN NAIL, 6 OR MORE 11/11/2019 70127-URIWDJJ NAIL, 6 OR MORE 02/04/2019 11088-GSHMAFE NAIL, 6 OR MORE 10/29/2018 56078-RLDJYIF NAIL, 6 OR MORE 07/30/2018 38283-KFBMJQB NAIL, 6 OR MORE 04/30/2018 69561-IBYRGEA NAIL, 6 OR MORE 01/08/2018 34876-NMUXIWC NAIL, 6 OR MORE 10/09/2017 22970-KIGZJLI NAIL, 6 OR MORE 07/10/2017 10430-HLKSTMW NAIL, 6 OR MORE 08/25/2016 32938-FRNSTKA NAIL, 6 OR MORE 05/23/2016 59968-CFBHVJF NAIL, 6 OR MORE 03/17/2014 84796-VJGDHEW NAIL, 6 OR MORE 01/06/2014 99221-STCSHRY NAIL, 6 OR MORE 09/16/2013 37042-BLCGRAH NAIL, 6 OR MORE 06/23/2014 91116-OBKCIOL NAIL, 6 OR MORE 12/10/2012 63130-FJMDLOW NAIL, 6 OR MORE 10/06/2014 64489-SJHPWGP NAIL, 6 OR MORE 04/20/2015 39452-UNEPCMV NAIL, 6 OR MORE 01/05/2015 54033-KAEDENY NAIL, 6 OR MORE 01/25/2016 19852-OBJXMKL NAIL, 6 OR MORE 10/26/2015 81116-FPSQUEE NAIL, 6 OR MORE 07/20/2015 87472-WMWZKHN NAIL, 6 OR MORE 08/27/2012 33532-ARUPNHS NAIL, 6 OR MORE 05/31/2012 54024-TSJJQKZ NAIL, 6 OR MORE 03/05/2012 87475-QOCNZMF NAIL, 6 OR MORE 06/13/2011 28034-HDJKUPG NAIL, 6 OR MORE 03/21/2011 10619-KOGWPKO NAIL, 6 OR MORE 12/27/2010 62400-DYLRBKR NAIL, 6 OR MORE 10/03/2022 46383-DEHDCZE NAIL, 6 OR MORE 07/11/2022 28488-KLKPMRD NAIL, 6 OR MORE 06/10/2013 62791-XBAJEIG NAIL, 6 OR MORE 03/11/2013 25768-Uwvmarxc Plate 03/21/2011 90687-Ruwhfuyu Plate 05/31/2012 42343-Phjmwlmb Plate 06/13/2011 84635-Cbgvkgbe Plate 08/27/2012 76514-Eeclxkay Plate 07/20/2015 10170-Lmmjujrl Plate 01/05/2015 80813-Sqxlwvgt Plate 10/06/2014 59311-Gxrsxoux Plate 09/16/2013 34142-Kjznyyeu Plate 01/06/2014 20202-Zodiaifk Plate 03/17/2014 21009-Imodxfpv Plate 07/10/2017 17699-Nmktsvjx Plate 12/05/2016 27214-Hfkivuyf Plate 09/21/2023 23518-Artyphbc Plate Each Additional 01464-Gcmdwdvl Plate Each Additional 01/2014 67055-Wfelumsj Plate Each Additional 68177 I&D ABSCESS- SIMPLE,SINGLE 012 05602 I&D ABSCESS- SIMPLE,SINGLE 011 69231 I&D ABSCESS- SIMPLE,SINGLE 021 72978-TCOW SKIN LESIONS, 2 TO 4 07/11/19 18 59643-ZHPW SKIN LESIONS, 2 TO 4 05/23/19 17 01892-IAIZ SKIN LESIONS, 2 TO 4 08/26/19 17 09354-QKNM SKIN LESIONS, 2 TO 4 10/10/19 18 27774-QRZL SKIN LESIONS, 2 TO 4 01/09/20 18 13599-KZPA SKIN LESIONS, 2 TO 4 07/31/19 19 43086-MSNV SKIN LESIONS, 2 TO 4 04/30/19 19 15199-MRIX SKIN LESIONS, 2 TO 4 10/30/19 19 98190-DJSR SKIN LESIONS, 2 TO 4 02/05/20 19 13983-LIZK SKIN LESIONS, 2 TO 4 11/11/19 20 84141-RDRW SKIN LESIONS, 2 TO 4 02/17/20 20 16728-DXPV SKIN LESIONS, 2 TO 4 08/25/19 37985-WDHE SKIN LESIONS, 2 TO 4 11/24/19 80594-IBBQ SKIN LESIONS, 2 TO 4 02/23/20 32167-KWJG SKIN LESIONS, 2 TO 4 04/18/19 23 48493-VPIB SKIN LESIONS, 2 TO 4 02/05/20 24 74558-DCLF SKIN LESIONS, 2 TO 4 12/04/19 24 12688-UEZG SKIN LESIONS, 2 TO 4 09/21/19 24 98587-XORN SKIN LESIONS, 2 TO 4 05/22/19 24 07476-ELLU SKIN LESIONS, 2 TO 4 03/06/20 86019-HQAF SKIN LESIONS, 2 TO 4 12/13/19 31904-BOEG SKIN LESIONS, 2 TO 4 01/11/20 03244-VPYX SKIN LESIONS, 2 TO 4 10/12/19 52685-PWQC SKIN LESIONS, 2 TO 4 05/24/19 02116-HNJU SKIN LESIONS, 2 TO 4 05/25/19 67979-PUYS SKIN LESIONS, 2 TO 4 08/12/19 13347-YMVZ SKIN LESIONS, 2 TO 4 05/13/19 20 25923-KDLJ SKIN LESIONS, 2 TO 4 03/06/20 17 97601-TVLT SKIN LESIONS, 2 TO 4 12/19/19 12 26492-EEAE SKIN LESIONS, 2 TO 4 12/06/19 17 76097-HNJQ SKIN LESIONS, 2 TO 4 08/28/19 13 29495-GGEN SKIN LESIONS, 2 TO 4 03/05/20 12 19185-QIAW SKIN LESIONS, 2 TO 4 05/31/19 13 40503-NDDA SKIN LESIONS, 2 TO 4 03/11/20 13 95843-JQHX SKIN LESIONS, 2 TO 4 06/11/19 14 07407-ECGY SKIN LESIONS, 2 TO 4 07/12/19 76996-YDAQ SKIN LESIONS, 2 TO 4 10/04/19 23 92289-IVIJ SKIN LESIONS, 2 TO 4 09/17/19 14 97296-XTZP SKIN LESIONS, 2 TO 4 12/11/19 13 00426-DPWP SKIN LESIONS, 2 TO 4 06/24/19 15 15151-MUNP SKIN LESIONS, 2 TO 4 01/07/20 14 51460-GISW SKIN LESIONS, 2 TO 4 03/17/20 14 23181-AWEJ SKIN LESIONS, 2 TO 4 10/07/19 15 02057-QAXZ SKIN LESIONS, 2 TO 4 01/06/20 15 62943-SRUU SKIN LESIONS, 2 TO 4 07/20/19 16 62031-CZID SKIN LESIONS, 2 TO 4 04/20/19 16 48149-MSGX SKIN LESIONS, 2 TO 4 10/26/19 16 53473-LSXL SKIN LESIONS, 2 TO 4 01/25/20 16 23064-NRIW SKIN LESION 06/13/2011 33686-TAWC SKIN LESION 03/21/2011 89102-YCLN SKIN LESION 09/12/2011 61035-Ytwvbavhj, Toes 06/28/2023 Next Appt Details Provider Name:Arturo Simon , 08/15/2024 10:15:00 AM, [address] [place], [address], Insurance Providers Payer Name Payer Address Payer Phone Subscriber Number Group Number Insured Name Patient Relationship to Insured Coverage Start Date Coverage End Date Medicare National Govt [facility] [address] [place] [address] [id number] [place], [place] Self - patient is the insured 2 [employer] Blue [employer] [address] [place] [address] [id number] 5 [place], [place] Self - patient is the insured [...] Date(Month/Year) [facility]23 [facility] 12[facility]2015 [facility] / for medication 6 [facility] cath put in 04/2015
--- OUTSIDE RECORDS SUMMARY | 2024-06-14 22:13 | XMS_ITS | Encounter Summary ---
Author Organization [facility] Address [address] [place] [address] Care Team Providers Care Finisher Denture Name Role Phone Torrey Kwok MD Primary Care Provider [phone] Encounter Details Date Type Department Care Team (Late st Contact Info) Description 05/01/2024 Lab Requisition [facility] - Main Lab [address] [facility] [place] [address] Torrey Kwok MD [address] [place] [address] Type 2 diabetes mellitus without complications (CMS/HCC) [...] LAB CHEMISTRY METHOD 05/01/2024 9:[address] [facility] Potassium 4.0 3.5 - 5.5 mmol/L LAB CHEMISTRY METHOD 05/01/2024 9:[address] [facility] Chloride 97 96 - 110 mmol/L LAB CHEMISTRY METHOD 05/01/2024 9:[address] [facility] CO2 29 21 - 32 mmol/L LAB CHEMISTRY METHOD 05/01/2024 9:17 AM [facility] Anion Gap 8 3 - 11 LAB CHEMISTRY METHOD 05/01/2024 9:17 AM [facility] Glucose 262(H) 70 - 100 mg/dL LAB CHEMISTRY METHOD 05/01/2024 9:17 AM [facility] BUN 45(H) 5 - 25 mg/dL LAB CHEMISTRY METHOD 05/01/2024 9:17 AM [facility] Creatinine 1.66(H) 0.50 - 1.10 mg/dL LAB CHEMISTRY METHOD 05/01/2024 9:17 AM [facility] eGFR 30(L) >=60 mL/min/1. 73m2 LAB CHEMISTRY METHOD 05/01/2024 9:17 AM [facility] Comment:Calculation based on the??Chronic Kidney Disease Epidemiology Collaboration (CKD-EPI) equation refit??without adjustment for race. BUN/Creatinine Ratio 27.1 LAB CHEMISTRY METHOD 05/01/2024 9:17 AM [facility] Calcium 7.6(L) 8.5 - 10.5 mg/dL LAB CHEMISTRY METHOD 05/01/2024 9:17 AM [facility] Blood Venous blood specimen / Unknown Venipuncture / Unknown 05/01/2024 7:06 AM EST 05/01/2024 8:25 AM EST us Torrey Kwok MD LAB BLOOD ORDERABLES Final Resul t [facility] [address] [place] [address], documented in this encounter Visit Diagnoses Diagnosis Type 2 diabetes mellitus without complications (CMS/HCC) documented in this encounter Care Teams Finisher Denture Relationship Specialty Start Date End Date Torrey Kwok MD [address] [place] [address] [address] [place] [address] PCP - General Geriatric Medicine 04/25/24 documented as of this encounter
--- OUTSIDE RECORDS SUMMARY | 2024-06-14 22:13 | XMS_ITS | Encounter Summary ---
Author Organization [facility] Address [address] [place] [address] Care Team Providers Care Head Filter Tank Tender Helper Name Role Phone Torrey Kwok MD Primary Care Provider [phone] Encounter Details Date Type Department Care Team (Late st Contact Info) Description 05/30/[address] [facility] - Main Lab [address] [place] [address] Torrey Kwok MD [address] [place] [address] Essential (primary) hypertension; Type 2 diabetes mellitus without complications (CMS/HCC) [...] Date/Time Associated Diagnosis Comments COMPLETE BLOOD COUNT STAT 05/30/2024 3:45 PM EST Essential (primary) hypertension Type 2 diabetes mellitus without complications (CMS/HCC) BASIC METABOLIC PANEL STAT 05/30/2024 3:45 PM EST Essential (primary) hypertension Type 2 diabetes mellitus without complications (CMS/HCC) documented in this encounter Results * (ABNORMAL) Basic metabolic panel (05/30/2024 3:45 PM EST) Sodium 139 133 - 145 mmol/L LAB CHEMISTRY METHOD 05/30/2024 5:00 PM EST [facility] Potassium 3.6 3.5 - 5.5 mmol/L LAB CHEMISTRY METHOD 05/30/2024 5:00 PM [facility] Chloride 104 96 - 110 mmol/L LAB CHEMISTRY METHOD 05/30/2024 5:00 PM [facility] CO2 26 21 - 32 mmol/L LAB CHEMISTRY METHOD 05/30/2024 5:00 PM [facility] Anion Gap 9 3 - 11 LAB CHEMISTRY METHOD 05/30/2024 5:00 PM [facility] Glucose 81 70 - 100 mg/dL LAB CHEMISTRY METHOD 05/30/2024 5:00 PM [facility] BUN 31(H) 5 - 25 mg/dL LAB CHEMISTRY METHOD 05/30/2024 5:00 PM [facility] Creatinine 1.11(H) 0.50 - 1.10 mg/dL LAB CHEMISTRY METHOD 05/30/2024 5:00 PM [facility] eGFR 48(L) >=60 mL/min/1. 73m2 LAB CHEMISTRY METHOD 05/30/2024 5:00 PM [facility] Comment:Calculation based on the??Chronic Kidney Disease Epidemiology Collaboration (CKD-EPI) equation refit??without adjustment for race. BUN/Creatinine Ratio 27.9 LAB CHEMISTRY METHOD 05/30/2024 5:00 PM [facility] Calcium 8.8 8.5 - 10.5 mg/dL LAB CHEMISTRY METHOD 05/30/2024 5:00 PM [facility] Blood Venous blood specimen / Unknown Venipuncture / Unknown 05/30/2024 3:45 PM EST 05/30/2024 4:21 PM EST us Torrey Kwok MD LAB BLOOD ORDERABLES Final Resul t [facility] [address] [place] [address], [place] [phone] * (ABNORMAL) Complete blood count (05/30/2024 3:45 PM EST) [facility] WBC 7.1 4.8 - 10.8 K/mcL LAB HEMETOLOGY METHOD 05/30/2024 4:35 PM [facility] RBC 3.20(L) 3.80 - 4.80 M/mcL LAB HEMETOLOGY METHOD 05/30/2024 4:35 PM [facility] Hemoglobin 10.3(L) 11.5 - 16.0 g/dL LAB HEMETOLOGY METHOD 05/30/2024 4:35 PM [facility] Hematocrit 32.0(L) 35.0 - 47.0 % LAB HEMETOLOGY METHOD 05/30/2024 4:35 PM [facility] MCV 100.0(H) 79.0 - 98.0 FL LAB HEMETOLOGY METHOD 05/30/2024 4:35 PM [facility] MCH 32.2(H) 27.0 - 32.0 pcg LAB HEMETOLOGY METHOD 05/30/2024 4:35 PM [facility] MCHC 32.2 32.0 - 37.0 g/dL LAB HEMETOLOGY METHOD 05/30/2024 4:35 PM [facility] RDW 18.3(H) 11.0 - 15.0 % LAB HEMETOLOGY METHOD 05/30/2024 4:35 PM [facility] Platelets 319 130 - 400 K/mcL LAB HEMETOLOGY METHOD 05/30/2024 4:35 PM [facility] MPV 10.1 7.0 - 11.0 FL LAB HEMETOLOGY METHOD 05/30/2024 4:35 PM [facility] NRBC 0.0 <1.0 % LAB HEMETOLOGY METHOD 05/30/2024 4:35 PM [facility] NRBC Absolute 0.00 <0.10 K/mcL LAB HEMETOLOGY METHOD 05/30/2024 4:35 PM EST [facility] Blood Venous blood specimen / Unknown Venipuncture / Unknown 05/30/2024 3:45 PM EST 05/30/2024 4:21 PM EST Torrey Kwok MD LAB BLOOD ORDERABLES Final Resul t [facility] [address] [place] [address], documented in this encounter Visit Diagnoses Diagnosis Essential (primary) hypertension Unspecified essential hypertension Type 2 diabetes mellitus without complications (CMS/HCC) documented in this encounter Care Teams Head Filter Tank Tender Helper Relationship Specialty Start Date End Date Torrey Kwok MD [address] [place] [address] [address] [place] [address] PCP - General Geriatric Medicine 04/25/24 documented as of this encounter
--- OUTSIDE RECORDS SUMMARY | 2024-06-14 22:13 | XMS_ITS ---
Author Organization [facility] Address [address] [place] [address] Care Team Providers Care Garnett Room Worker Name Role Phone Monique Wihte Primary Care Provider Arturo Brown Unavailable [phone] Allergies Allergen (clinical drug ingredient) Drug/Non Drug [...] Ordered Date Performed Result Body Sit e 97466-XBLKQEU NAIL, 6 OR MORE 02/05/2024 N/A 03756-LRNA SKIN LESIONS, 2 TO 4 02/05/2024 N/A Encounters Encounter Location Date Provider Diagnosis [facility] [address] [place] [address] 02/05/2024 Arturo Simon Type 1 diabetes mellitus [...] INSTRUCTIONS.pdf) Pending Test Test Name Order Date 59339-GABGFJX NAIL, 6 OR MORE 02/05/2024 94140-IFPE SKIN LESIONS, 2 TO 4 02/05/20 24 Next Appt Details Follow Up: prn, Reason: Provider Name:Arturo Simon , 08/15/2024 10:15:00 AM, [address] [place], [address], Procedure Notes * Category Sub-Category Detail Notes Debride Nail 6-10 Nail debridement Performance o f this nail treatment by a nonprofessional would put this patients foot and overall health at risk. Therefore, nail debridement was performed extensively to reduce/remove overall nail length, girth, thickness, subungual debris, and necrotic tissue, by manual and/or electrical means through the use of a nail nipper and/or dremel-type carbide grinder, to a more viable healthy nail plate or bed tissue 6-10. Silver nitrate used for any petechial bleeding as necessary. Definitive antifungal treatment options have been reviewed and discussed with the patient. The patient chooses, no pharmaceutical tx - 19293 Keratoma Treatment Parring or Cutting o f Benign Hyperkeratotic Lesion(s) (-56) 2-4 Lesions - The Benign hyperkeratotic lesions, as described above were pared, and/or cut utilizing a sterile 15 blade, tissue nippers, and/or dremel - 14065 Progress Notes * Gerri SCHWARTZ RDOB:[birth year] (88 yo F)Acc No.[id number]:02/05/2024 Progress Note Patient:?Gerri SCHWARTZ R Provider:?Arturo Simon DPM :1935???Age:88 Y???Sex:Female D ate:02/05/2024 Address: [address] [id number] Pcp:Monique White Subjective: * Chief Complaints: * [...] Hospitalization/Major Diagno stic Procedure:?[facility] / for medication 04/2015[facility]: A-fib 12/2015[facility]- UTI 11/16/23 * Family History:?Mother: dece ased, [...] bike. ?Marital status: . 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 * Medications:?TakingToujeo Ma x SoloStar 300 UNIT/ML [...] 9 * Examination: ???Ophthalmology Referral: ?DIABETES EYE EXAM?Procedure Performed:?Yes ?Date of Exam Performed?05/24/2023 ?Diabetic Retinopathy Screening:?Yes ?Retinal Screening Performed:?Yes ?Findings of Diabetic Eye Exam:?retinopathy?Neurological: ?SENSORY:?Neurological exam demonstrates, reduced light touch sensation, [...] accompanied by , Daughter.?ORIENTED:?person, place, and time.?FOOT EXAM:?Lower Extremity Neurological Exam performed:?Yes ?Visual exam of foot performed:?Yes ?Date?02/05/2024 ?Footwear Evaluation?Footwear Evaluation performed:?Yes??? Assessment: * Assessment: 1.?Type 1 diabetes mellitus [...] use of a nail nipper and/or dremel-type carbide grinder, to a more viable healthy nail plate or bed tissue 6-10. Silver nitrate used for any petechial bleeding as necessary. Definitive antifungal treatment options have been reviewed and discussed with the patient. The patient chooses, no pharmaceutical tx - 52130.?Keratoma Treatment:?Parring or Cutting of Benign Hyperkeratotic Lesion(s)?(-56) 2-4 Lesions - The Benign hyperkeratotic lesions, as described above were pared, and/or cut utilizing a sterile 15 blade, tissue nippers, and/or dremel - 27466.? * Procedure Codes:?19719 DEBRI DE NAIL, 6 OR MORE, Modifiers: XS 83270 TRIM SKIN LESIONS, 2 TO 4, Modifiers: [...] Provider:?Arturo Simon DPM Date:?2023 Generated for Awilda diggs/Lee/Nilay on:?06/14/2024 10:12 PM EST History and Physical Notes * [...]
--- OUTSIDE RECORDS SUMMARY | 2024-06-14 22:13 | XMS_ITS | Encounter Summary ---
Author Organization [facility] Address [id number] [place] [id number] Care Team Providers Care Harpoon Engagement Planning Operator Name Role Phone Torrey Kwok MD Primary Care Provider [phone] Encounter Details Date Type Department Care Team (Late st Contact Info) Description 06/07/2024 Lab Requisition [facility] Main Lab [address] [facility] [place] [address] Torrey Kwok MD [address] [place] [address] Heart failure, unspecified (CMS/HCC); Type 2 diabetes mellitus with diabetic chronic kidney disease (CMS/HCC); Chronic kidney disease, stage 3 unspecified (CMS/HCC); Vitamin D deficiency, unspecified; Essential (primary) hypertension Social History Tobacco Use [...] Diagnosis Comments VITAMIN D 25 HYDROXY Routine 06/07/2024 6:36 AM EST Heart failure, unspecified (CMS/HCC) Type 2 diabetes mellitus with diabetic chronic kidney disease (CMS/HCC) Chronic kidney disease, stage 3 unspecified (CMS/HCC) Vitamin D deficiency, unspecified Essential (primary) hypertension FOLATE Routine 06/07/2024 6:36 AM EST Heart failure, unspecified (CMS/HCC) Type 2 diabetes mellitus with diabetic chronic kidney disease (CMS/HCC) Chronic kidney disease, stage 3 unspecified (CMS/HCC) Vitamin D deficiency, unspecified Essential (primary) hypertension VITAMIN B12 Routine 06/07/2024 6:36 AM EST Heart failure, unspecified (CMS/HCC) Type 2 diabetes mellitus with diabetic chronic kidney disease ([facility]/HCC) Chronic kidney disease, stage 3 unspecified (CMS/HCC) Vitamin D deficiency, unspecified Essential (primary) hypertension documented in this encounter Results * Vitamin D 25 hydroxy (06/07/2024 6:36 AM EST) [facility] Vit D, 25-Hydroxy 41.4 30.0 - 80.0 ng/mL LAB CHEMISTRY METHOD 06/07/2024 1:29 PM EST [facility] Blood Venous blood specimen / Unknown Venipuncture / Unknown 06/07/2024 6:36 AM EST 06/07/2024 9:58 AM EST Torrey Kwok MD LAB BLOOD ORDERABLES Final Resul t [facility] [address] [place] [address], [place] [phone] * Folate (06/07/2024 6:36 AM EST) [facility] Folate 9.8 2.8 - 17.0 ng/ml LAB CHEMISTRY METHOD 06/07/2024 12:13 PM EST [facility] Blood Venous blood specimen / Unknown Venipuncture / Unknown 06/07/2024 6:36 AM EST 06/07/2024 9:58 AM EST us Torrey Kwok MD LAB BLOOD ORDERABLES Final Resul t [facility] [address] [place] [id number], [place] [phone] * (ABNORMAL) Vitamin B12 (06/07/2024 6:36 AM EST) [facility] Vitamin B-12 1,072(H) 250 - 900 pcg/mL LAB CHEMISTRY METHOD 06/07/2024 12:13 PM EST [facility] Blood Venous blood specimen / Unknown Venipuncture / Unknown 06/07/2024 6:36 AM EST 06/07/2024 9:58 AM EST Torrey Kwok MD LAB BLOOD ORDERABLES Final Resul t [facility] [address] [place] [address], documented in this encounter Visit Diagnoses Diagnosis Heart failure, unspecified (CMS/HCC) Heart failure, unspecified Type 2 diabetes mellitus with diabetic chronic kidney disease (CMS/HCC) Chronic kidney disease, stage 3 unspecified (CMS/HCC) Vitamin D deficiency, unspecified Essential (primary) hypertension Unspecified essential hypertension documented in this encounter Care Teams Har[employer] Engagement Planning Operator Relationship Specialty Start Date End Date Torrey Kwok MD [address] [place] [address] [address] [place] [address] PCP - General Geriatric Medicine 04/25/24 documented as of this encounter
--- OUTSIDE RECORDS SUMMARY | 2024-06-14 22:13 | XMS_ITS | Clinical Summary ---
Author Organization [address] Address [address] [place] [address] Phone Care Team Providers Care Cannoneer Name Role Phone Torrey Kwok MD Primary Care Provider [phone] Encounters Date Type Department Care Team Description 06/14/[address] 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 Lab [address] [place] [phone] Torrey Kwok MD Heart failure, unspecified (CMS/HCC); Type 2 diabetes mellitus with diabetic chronic kidney disease (CMS/HCC); Chronic kidney disease, stage 3 unspecified (CMS/HCC); Vitamin D deficiency, unspecified; Essential (primary) hypertension 06/02/[address] [facility] Lab [address] [place] [phone] Torrey Kwok MD Chronic diastolic (congestive) heart failure (CMS/HCC); Chronic kidney disease, stage 3 unspecified ([facility]/HCC) 05/31/2024 Lab Requisition [facility] Main Lab [address] [place] [phone] Torrey Kwok MD Type 2 diabetes mellitus with diabetic chronic kidney disease ([facility]/HCC); Essential (primary) hypertension; Heart failure, unspecified ([facility]/HCC); 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 without macular edema ([facility]/HCC) 05/30/[address] [facility] Lab [address] [place] [phone] Torrey Kwok MD Essential (primary) hypertension; Type 2 diabetes mellitus without complications ([facility]/HCC) 05/24/[address] 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 Lab [address] [place] [phone] Torrey Kwok MD Heart failure, unspecified ([facility]); Essential (primary) hypertension; Type 2 diabetes mellitus with diabetic chronic kidney disease ([facility]/HCC) 05/09/[address] 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 Lab [address] [place] [phone] Torrey Kwok MD Type 2 diabetes mellitus without complications ([facility]/HCC) 05/05/[address] [facility] Lab [address] [place] [phone] Torrey Kwok MD Chronic kidney disease, stage 3 unspecified ([facility]); Type 2 diabetes mellitus with diabetic chronic kidney disease ([facility]) 05/01/[address] [facility] Lab [address] [place] [phone] Torrey Kwok MD Type 2 diabetes mellitus without complications ([facility]) 04/30/[address] [facility] Lab [address] [place] [phone] Torrey Kwok MD Type 2 diabetes mellitus without complications ([facility]) 04/29/[address] [facility] Lab [address] [place] [phone] Torrey Kwok MD Dysuria 04/25/[address] 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 ([facility]); Heart failure, unspecified ([facility]); Essential (primary) hypertension from Last 3 Months [...] 10/23/2024 04/25/2024 Hypertension/CHF/CAD Annual BMP Blood Test 06/09/2025 06/09/2024, 06/02/2024, 06/02/2024, Additional history exists HIB Vaccines Aged Out [...] Associated Diagnosis Comments BASIC METABOLIC PANEL Routine 06/09/2024 6:45 AM EST Type 2 diabetes mellitus with diabetic chronic kidney disease (CMS/HCC) Essential (primary) hypertension Heart failure, unspecified (CMS/HCC) 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) COMPLETE BLOOD COUNT Routine 06/09/2024 6:45 AM EST Type 2 diabetes mellitus with diabetic chronic kidney disease (CMS/HCC) Essential (primary) hypertension Heart failure, unspecified (CMS/HCC) 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) VITAMIN D 25 HYDROXY Routine 06/07/2024 6:36 [...] Vitamin D deficiency, unspecified Essential (primary) hypertension BASIC METABOLIC PANEL STAT 06/02/2024 12:17 PM EST Chronic diastolic (congestive) heart failure (CMS/HCC) Chronic kidney disease, stage 3 unspecified (CMS/HCC) COMPLETE BLOOD COUNT STAT 06/02/2024 12:17 PM EST Chronic diastolic (congestive) heart failure (CMS/HCC) Chronic kidney disease, stage 3 unspecified (CMS/HCC) BASIC METABOLIC PANEL Routine 06/02/2024 5:33 AM EST Type 2 diabetes mellitus with diabetic chronic kidney disease (CMS/HCC) Essential (primary) hypertension Heart failure, unspecified (CMS/HCC) 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) COMPLETE BLOOD COUNT Routine 06/02/2024 5:33 AM EST Type 2 diabetes mellitus with diabetic chronic kidney disease (CMS/HCC) Essential (primary) hypertension Heart failure, unspecified (CMS/HCC) 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) BASIC METABOLIC PANEL STAT 05/30/2024 3:45 PM EST Essential (primary) hypertension Type 2 diabetes mellitus without complications (CMS/HCC) COMPLETE BLOOD COUNT STAT 05/30/2024 3:45 PM EST Essential (primary) hypertension Type 2 diabetes mellitus without complications (CMS/HCC) COMPREHENSIVE METABOLIC PANEL Routine 05/26/2024 5:59 [...] Months Results * (ABNORMAL) Complete blood count (06/09/2024 6:45 AM EST) Only the most recent of10 resultswithin the time period is included. WBC 9.1 4.8 - 10.8 K/mcL LAB HEMETOLOGY METHOD 06/09/2024 1:30 PM [facility] RBC 3.50(L) 3.80 - 4.80 M/mcL LAB HEMETOLOGY METHOD 06/09/2024 1:30 PM [facility] LAB Hemoglobin 11.2(L) 11.5 - 16.0 g/dL LAB HEMETOLOGY METHOD 06/09/2024 1:30 PM [facility] LAB Hematocrit 35.6 35.0 - 47.0 % LAB HEMETOLOGY METHOD 06/09/2024 1:30 PM [facility] MCV 101.1(H) 79.0 - 98.0 FL LAB HEMETOLOGY METHOD 06/09/2024 1:30 PM [facility] LAB MCH 31.8 27.0 - 32.0 pcg LAB HEMETOLOGY METHOD 06/09/2024 1:30 PM [facility] LAB MCHC 31.5(L) 32.0 - 37.0 g/dL LAB HEMETOLOGY METHOD 06/09/2024 1:30 PM [facility] RDW 18.6(H) 11.0 - 15.0 % LAB HEMETOLOGY METHOD 06/09/2024 1:30 PM [facility] Platelets 346 130 - 400 K/mcL LAB HEMETOLOGY METHOD 06/09/2024 1:30 PM [facility] MPV 10.5 7.0 - 11.0 FL LAB HEMETOLOGY METHOD 06/09/2024 1:30 PM [facility] LAB NRBC 0.0 <1.0 % LAB HEMETOLOGY METHOD 06/09/2024 1:30 PM EST [facility] LAB NRBC Absolute 0.00 <0.10 K/mcL LAB HEMETOLOGY METHOD 06/09/2024 1:30 PM [facility] LAB Blood Venous blood specimen / Unknown Venipuncture / Unknown 06/09/2024 6:45 AM EST 06/09/2024 11:22 AM EST us Torrey Kwok MD LAB BLOOD ORDERABLES Final Resul t [facility] LAB [address] [place] [address], [place] [phone] * (ABNORMAL) Basic metabolic panel (06/09/2024 6:45 AM EST) Only the most recent of10 resultswithin the time period is included. Sodium 137 133 - 145 mmol/L LAB CHEMISTRY METHOD 06/09/2024 1:51 PM [facility] Potassium 3.8 3.5 - 5.5 mmol/L LAB CHEMISTRY METHOD 06/09/2024 1:51 PM [facility] Chloride 99 96 - 110 mmol/L LAB CHEMISTRY METHOD 06/09/2024 1:51 PM [facility] CO2 28 21 - 32 mmol/L LAB CHEMISTRY METHOD 06/09/2024 1:51 PM [facility] Anion Gap 10 3 - 11 LAB CHEMISTRY METHOD 06/09/2024 1:51 PM [facility] Glucose 135(H) 70 - 100 mg/dL LAB CHEMISTRY METHOD 06/09/2024 1:51 PM [facility] BUN 41(H) 5 - 25 mg/dL LAB CHEMISTRY METHOD 06/09/2024 1:51 PM [facility] LAB Creatinine 0.99 0.50 - 1.10 mg/dL LAB CHEMISTRY METHOD 06/09/2024 1:51 PM EST [facility] LAB eGFR 55(L) >=60 mL/min/1. 73m2 LAB CHEMISTRY METHOD 06/09/2024 1:51 PM EST [facility] Comment:Calculation based on the??Chronic Kidney Disease Epidemiology Collaboration (CKD-EPI) equation refit??without adjustment for race. BUN/Creatinine Ratio 41.4 LAB CHEMISTRY METHOD 06/09/2024 1:51 PM EST [facility] Calcium 9.2 8.5 - 10.5 mg/dL LAB CHEMISTRY METHOD 06/09/2024 1:51 PM [facility] Blood Venous blood specimen / Unknown Venipuncture / Unknown 06/09/2024 6:45 AM EST 06/09/2024 11:22 AM EST us Torrey Kwok MD LAB BLOOD ORDERABLES Final Resul t Performing Organization Address City/[facility]/ZIP Co de Phone Number [facility] [address] [place] [address], [place] [phone] * Vitamin D 25 hydroxy (06/07/2024 6:36 AM EST) Only the most recent of2 resultswithin the time period is included. Vit D, 25-Hydroxy 41.4 30.0 - 80.0 ng/mL LAB CHEMISTRY METHOD 06/07/2024 1:29 PM EST [facility] Blood Venous blood specimen / Unknown Venipuncture / Unknown 06/07/2024 6:36 AM EST 06/07/2024 9:58 AM EST us Torrey Kwok MD LAB BLOOD ORDERABLES Final Resul t [facility] [address] [place] [address], [place] [phone] * Folate (06/07/2024 6:36 AM EST) Only the most recent of2 resultswithin the time period is included. Folate 9.8 2.8 - 17.0 ng/ml LAB CHEMISTRY METHOD 06/07/2024 12:13 PM EST [facility] Blood Venous blood specimen / Unknown Venipuncture / Unknown 06/07/2024 6:36 AM EST 06/07/2024 9:58 AM EST us Torrey Kwok MD LAB BLOOD ORDERABLES Final Resul t Performing Organization Address City/[facility]/ZIP Co de Phone Number [facility] [address] [place] [address], [place] [phone] * (ABNORMAL) Vitamin B12 (06/07/2024 6:36 AM EST) Only the most recent of2 resultswithin the time period is included. [facility] Vitamin B-12 1,072(H) 250 - 900 pcg/mL LAB CHEMISTRY METHOD 06/07/2024 12:13 PM EST [facility] Blood Venous blood specimen / Unknown Venipuncture / Unknown 06/07/2024 6:36 AM EST 06/07/2024 9:58 AM EST us Torrey Kwok MD LAB BLOOD ORDERABLES Final Resul t Performing Organization Address City/[facility]/ZIP Co de Phone Number [facility] LAB [address] [place] [address], [place] [phone] * (ABNORMAL) B-type natriuretic peptide (05/26/2024 5:59 AM EST) Pathologist [facility] BNP 320(H) <=100 pcg/mL LAB CHEMISTRY METHOD 05/26/2024 1:35 PM EST [facility] Blood Venous blood specimen / Unknown Venipuncture / Unknown 05/26/2024 5:59 AM EST 05/26/2024 11:00 AM EST us Torrey Kwok MD LAB BLOOD ORDERABLES Final Resul t [facility] [address] [place] [address], * (ABNORMAL) Comprehensive metabolic panel (05/26/2024 5:59 AM EST) Only the most recent of2 resultswithin the time period is included. Sodium 141 133 - 145 mmol/L LAB CHEMISTRY METHOD 05/26/2024 11:56 AM [facility] Potassium 3.5 3.5 - 5.5 mmol/L LAB CHEMISTRY METHOD 05/26/2024 11:56 AM [facility] Chloride 101 96 - 110 mmol/L LAB CHEMISTRY METHOD 05/26/2024 11:56 AM [facility] CO2 26 21 - 32 mmol/L LAB CHEMISTRY METHOD 05/26/2024 11:56 AM [facility] Anion Gap 14(H) 3 - 11 LAB CHEMISTRY METHOD 05/26/2024 11:56 AM [facility] Glucose 200(H) 70 - 100 mg/dL LAB CHEMISTRY METHOD 05/26/2024 11:56 AM [facility] BUN 35(H) 5 - 25 mg/dL LAB CHEMISTRY METHOD 05/26/2024 11:56 AM [facility] Creatinine 1.16(H) 0.50 - 1.10 mg/dL LAB CHEMISTRY METHOD 05/26/2024 11:56 AM [facility] eGFR 46(L) >=60 mL/min/1. 73m2 LAB CHEMISTRY METHOD 05/26/2024 11:56 AM [facility] Comment:Calculation based on the??Chronic Kidney Disease Epidemiology Collaboration (CKD-EPI) equation refit??without adjustment for race. BUN/Creatinine Ratio 30.2 LAB CHEMISTRY METHOD 05/26/2024 11:56 AM [facility] Calcium 8.9 8.5 - 10.5 mg/dL LAB CHEMISTRY METHOD 05/26/2024 11:56 AM [facility] AST (SGOT) 21 10 - 42 unit/L LAB CHEMISTRY METHOD 05/26/2024 11:56 AM [facility] ALT (SGPT) 20 10 - 60 unit/L LAB CHEMISTRY METHOD 05/26/2024 11:56 AM [facility] Alkaline Phosphatase 146(H) 42 - 121 unit/L LAB CHEMISTRY METHOD 05/26/2024 11:56 AM [facility] Total Protein 6.8 6.0 - 8.0 g/dL LAB CHEMISTRY METHOD 05/26/2024 11:56 AM [facility] Albumin 3.6 3.2 - 5.0 g/dL LAB CHEMISTRY METHOD 05/26/2024 11:56 AM [facility] Total Bilirubin 0.6 0.0 - 1.4 mg/dL LAB CHEMISTRY METHOD 05/26/2024 11:56 AM [facility] Blood Venous blood specimen / Unknown Venipuncture / Unknown 05/26/2024 5:59 AM EST 05/26/2024 11:00 AM EST us Torrey Kwok MD LAB BLOOD ORDERABLES Final Resul t [facility] [address] [place] [address], * (ABNORMAL) Urinalysis with reflex microscopic and culture (04/28/2024 12:15 PM EST) Specific [place] Urine 1.021 1.003 - 1.030 LAB URINALYSIS - AUTOMATED METHOD 04/29/2024 11:05 AM [facility] pH, Urine 5.5 5.0 - 8.0 pH LAB URINALYSIS - AUTOMATED METHOD 04/29/2024 11:05 AM [facility] Leukocytes, Urine Trace(A) Negative LAB URINALYSIS - AUTOMATED METHOD 04/29/2024 11:05 AM [facility] Nitrite, Urine Negative Negative LAB URINALYSIS - AUTOMATED METHOD 04/29/2024 11:05 AM [facility] Protein, Urine Trace <=Trace mg/dL LAB URINALYSIS - AUTOMATED METHOD 04/29/2024 11:05 AM [facility] Glucose, Urine >=1000(A) Negative mg/dL LAB URINALYSIS - AUTOMATED METHOD 04/29/2024 11:05 AM [facility] Ketones, Urine 15(A) Negative mg/dL LAB URINALYSIS - AUTOMATED METHOD 04/29/2024 11:05 AM [facility] Urobilinogen , Urine 0.2 0.2 - 1.0 mg/dL LAB URINALYSIS - AUTOMATED METHOD 04/29/2024 11:05 AM [facility] Bilirubin, Urine Negative Negative LAB URINALYSIS - AUTOMATED METHOD 04/29/2024 11:05 AM [facility] Blood, Urine Negative Negative LAB URINALYSIS - AUTOMATED METHOD 04/29/2024 11:05 AM [facility] RBC, Urine 0.8 0 - 4 /HPF LAB URINALYSIS - AUTOMATED METHOD 04/29/2024 11:05 AM [facility] WBC, Urine 12.6(H) 0 - 4 /HPF LAB URINALYSIS - AUTOMATED METHOD 04/29/2024 11:05 AM [facility] Squamous Epithelial, Urine 10 0 - 60 /LPF LAB URINALYSIS - AUTOMATED METHOD 04/29/2024 11:05 AM [facility] Bacteria, Urine Many(A) Negative /HPF LAB URINALYSIS - AUTOMATED METHOD 04/29/2024 11:05 AM [facility] Hyaline Casts, Urine 0.4 0 - 3 /LPF LAB URINALYSIS - AUTOMATED METHOD 04/29/2024 11:05 AM EST [facility] Urine Urine specimen from urinary conduit / Unknown Non-blood Collection / Unknown 04/28/2024 12:15 PM EST 04/29/2024 9:53 AM EST us Torrey Kwok MD LAB URINE ORDERABLES Final Resul t Performing Organization Address City/[facility]/ZIP Co de Phone Number [facility] [address] [place] [address], [place] [phone] * Frost urine culture tube (04/28/2024 12:15 PM EST) Extra Tube Hold for add-ons. 04/29/2024 11:01 AM EST [facility] Comment:Auto resulted. Urine Urine specimen obtained by clean catch procedure / Unknown 04/28/2024 12:15 PM EST 04/29/2024 9:53 AM EST us Torrey Kwok MD LAB URINE ORDERABLES Final Resul t Performing Organization Address [facility] Co de Phone Number [facility] [address] [place] [address], [place] [phone] * (ABNORMAL) Culture urine (04/28/2024 12:15 PM [...] ANDRE <=0.25 ug/ml: Susceptible Escherichia coli Amikacin ANDER 2 ug/ml: Susceptible Escherichia coli Gentamicin ANDRE <=1 ug/ml: Susceptible Escherichia coli Ciprofloxacin ANDRE <=0.06 ug/ml: Susceptible Escherichia coli Levofloxacin ANDRE <=0.12 ug/ml: Susceptible Escherichia coli Nitrofurantoin ANDRE <=16 ug/ml: Susceptible Escherichia coli Trimethoprim/Sulfamethoxazole ANDRE <=20 ug/ml: Susceptible Torrey Kwok MD LAB MICROBIOLOGY - GENERAL ORDER GENET Final Result Performing Organization Address [facility] Co de Phone Number [facility] [address] [place] [address], * Thyroid stimulating hormone (04/25/2024 5:49 AM EST) Pathologist [facility] TSH 3.04 0.40 - 4.00 mcIU/mL LAB CHEMISTRY METHOD 04/25/2024 10:35 AM EST [facility] Blood Venous blood specimen / Unknown Venipuncture / Unknown 04/25/2024 5:49 AM EST 04/25/2024 9:21 AM EST Torrey Kwok MD LAB BLOOD ORDERABLES Final Resul t Performing Organization Address [facility]/ZIP Co de Phone Number [facility] [address] [place] [address], * (ABNORMAL) Hemoglobin A1c (04/25/2024 5:49 AM EST) Hemoglobin A1C 8.7(H) <6.5 % LAB CHEMISTRY METHOD 04/25/2024 1:33 PM EST [facility] Mean Bld Glu Estim. 203 mg/dL LAB CHEMISTRY METHOD 04/25/2024 1:33 PM EST [facility] Blood Venous blood specimen / Unknown Venipuncture / Unknown 04/25/2024 5:49 AM EST 04/25/2024 9:21 AM EST Torrey Kwok MD LAB BLOOD ORDERABLES Final Resul t [facility] ([facility] LAB [address] [place] [address], [place] [phone] from Last 3 Months Insurance MEDICARE [facility] Care Teams Cannoneer Relationship Specialty Start Date End Date Torrey Kwok MD [address] [place] [id number] [address] [place] [address] PCP - General Geriatric Medicine 04/25/24
--- OUTSIDE RECORDS SUMMARY | 2024-06-14 22:13 | XMS_ITS | Clinical Summary ---
Author Organization [facility] Address [address] [facility] [address] [place] [address] Phone Care Team Providers Care Major Gifts Officer Name Role Phone Monique White MD Primary Care Provider [phone] Allergies Active Allergy Reactions Criticality Noted Date [...] PT (per her report last PT at [facility] in July-August 2020). I have encouraged [...] patient's age to complete this topic Insurance [facility] MEDICARE [facility] MEDICARE Care Teams Major Gifts Officer Relationship Specialty Start Date End Date Monique White MD [facility] [address] [place] PCP - General Internal Medicine 03/11/21
--- OUTSIDE RECORDS SUMMARY | 2024-06-14 22:13 | XMS_ITS | Encounter Summary ---
Author Organization [facility] Address [address] [place] [id number] Care Team Providers Care Dye Worker Name Role Phone Torrey Kwok MD Primary Care Provider [phone] Encounter Details Date Type Department Care Team (Late st Contact Info) Description 06/07/[address] 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) BASIC METABOLIC PANEL Routine 06/09/2024 6:45 AM EST Type 2 diabetes mellitus with diabetic chronic kidney disease (CMS/HCC) Essential (primary) hypertension Heart failure, unspecified (CMS/HCC) 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) documented in this encounter Results * (ABNORMAL) Basic metabolic panel (06/09/2024 6:45 AM EST) Sodium 137 133 - 145 mmol/L LAB CHEMISTRY METHOD 06/09/2024 1:51 PM [facility] Potassium 3.8 3.5 - 5.5 mmol/L LAB CHEMISTRY METHOD 06/09/2024 1:51 PM [facility] Chloride 99 96 - 110 mmol/L LAB CHEMISTRY METHOD 06/09/2024 1:51 PM [facility] CO2 28 21 - 32 mmol/L LAB CHEMISTRY METHOD 06/09/2024 1:51 PM [facility] Anion Gap 10 3 - 11 LAB CHEMISTRY METHOD 06/09/2024 1:51 PM [facility] Glucose 135(H) 70 - 100 mg/dL LAB CHEMISTRY METHOD 06/09/2024 1:51 PM [facility] BUN 41(H) 5 - 25 mg/dL LAB CHEMISTRY METHOD 06/09/2024 1:51 PM [facility] Creatinine 0.99 0.50 - 1.10 mg/dL LAB CHEMISTRY METHOD 06/09/2024 1:51 PM [facility] eGFR 55(L) >=60 mL/min/1. 73m2 LAB CHEMISTRY METHOD 06/09/2024 1:51 PM [facility] Comment:Calculation based on the??Chronic Kidney Disease Epidemiology Collaboration (CKD-EPI) equation refit??without adjustment for race. BUN/Creatinine Ratio 41.4 LAB CHEMISTRY METHOD 06/09/2024 1:51 PM [facility] Calcium 9.2 8.5 - 10.5 mg/dL LAB CHEMISTRY METHOD 06/09/2024 1:51 PM [facility] Blood Venous blood specimen / Unknown Venipuncture / Unknown 06/09/2024 6:45 AM EST 06/09/2024 11:22 AM EST us Torrey Kwok MD LAB BLOOD ORDERABLES Final Resul t [facility] [address] [place] [address], [place] [phone] * (ABNORMAL) Complete blood count (06/09/2024 6:45 AM EST) WBC 9.1 4.8 - 10.8 K/mcL LAB HEMETOLOGY METHOD 06/09/2024 1:30 PM [facility] RBC 3.50(L) 3.80 - 4.80 M/mcL LAB HEMETOLOGY METHOD 06/09/2024 1:30 PM [facility] Hemoglobin 11.2(L) 11.5 - 16.0 g/dL LAB HEMETOLOGY METHOD 06/09/2024 1:30 PM [facility] Hematocrit 35.6 35.0 - 47.0 % LAB HEMETOLOGY METHOD 06/09/2024 1:30 PM [facility] MCV 101.1(H) 79.0 - 98.0 FL LAB HEMETOLOGY METHOD 06/09/2024 1:30 PM [facility] MCH 31.8 27.0 - 32.0 pcg LAB HEMETOLOGY METHOD 06/09/2024 1:30 PM [facility] MCHC 31.5(L) 32.0 - 37.0 g/dL LAB HEMETOLOGY METHOD 06/09/2024 1:30 PM [facility] RDW 18.6(H) 11.0 - 15.0 % LAB HEMETOLOGY METHOD 06/09/2024 1:30 PM [facility] Platelets 346 130 - 400 K/mcL LAB HEMETOLOGY METHOD 06/09/2024 1:30 PM [facility] MPV 10.5 7.0 - 11.0 FL LAB HEMETOLOGY METHOD 06/09/2024 1:[address] [facility] NRBC 0.0 <1.0 % LAB HEMETOLOGY METHOD 06/09/2024 1:[address] [facility] NRBC Absolute 0.00 <0.10 K/mcL LAB HEMETOLOGY METHOD 06/09/2024 1:[address] [facility] Blood Venous blood specimen / Unknown Venipuncture / Unknown 06/09/2024 6:45 AM EST 06/09/2024 11:22 AM EST us Torrey Kwok MD LAB BLOOD ORDERABLES Final Resul t [facility] [address] [place] [address], documented in this encounter Visit Diagnoses Diagnosis Type 2 diabetes mellitus with diabetic chronic kidney disease (CMS/HCC) Essential (primary) hypertension Unspecified essential hypertension Heart failure, unspecified (CMS/HCC) Heart failure, unspecified 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
--- OUTSIDE RECORDS SUMMARY | 2024-06-14 22:13 | XMS_ITS | Encounter Summary ---
Author Organization [facility] Address [address] [place] [address] Care Team Providers Care Stummel Selector Name Role Phone Torrey Kwok MD Primary Care Provider [phone] Encounter Details Date Type Department Care Team (Late st Contact Info) Description 05/06/2024 Lab Requisition [facility] - Main Lab 299 [facility] [place] [address] Torrey Kwok MD [address] [place] [address] Type 2 diabetes mellitus without complications (CMS/HCC) [...] LAB CHEMISTRY METHOD 05/07/2024 1:13 PM EST [facility] Potassium 4.1 3.5 - 5.5 mmol/L LAB CHEMISTRY METHOD 05/07/2024 1:[address] [facility] Chloride 96 96 - 110 mmol/L LAB CHEMISTRY METHOD 05/07/2024 1:[address] [facility] CO2 26 21 - 32 mmol/L LAB CHEMISTRY METHOD 05/07/2024 1:[address] [facility] Anion Gap 8 3 - 11 LAB CHEMISTRY METHOD 05/07/2024 1:[address] [facility] Glucose 271(H) 70 - 100 mg/dL LAB CHEMISTRY METHOD 05/07/2024 1:[address] [facility] BUN 21 5 - 25 mg/dL LAB CHEMISTRY METHOD 05/07/2024 1:[address] [facility] Creatinine 0.98 0.50 - 1.10 mg/dL LAB CHEMISTRY METHOD 05/07/2024 1:[address] [facility] eGFR 56(L) >=60 mL/min/1. 73m2 LAB CHEMISTRY METHOD 05/07/2024 1:[address] [facility] Comment:Calculation based on the??Chronic Kidney Disease Epidemiology Collaboration (CKD-EPI) equation refit??without adjustment for race. BUN/Creatinine Ratio 21.4 LAB CHEMISTRY METHOD 05/07/2024 1:[address] [facility] Calcium 9.0 8.5 - 10.5 mg/dL LAB CHEMISTRY METHOD 05/07/2024 1:[address] [facility] Blood Venous blood specimen / Unknown Venipuncture / Unknown 05/07/2024 8:42 AM EST 05/07/2024 11:51 AM EST us Torrey Kwok MD LAB BLOOD ORDERABLES Final Resul t [facility] [address] [place] [address], * (ABNORMAL) Complete blood count (05/07/2024 8:42 AM EST) WBC 9.1 4.8 - 10.8 K/[facility] LAB HEMETOLOGY METHOD 05/07/2024 12:[address] [facility] RBC 3.90 3.80 - 4.80 M/[facility] LAB HEMETOLOGY METHOD 05/07/2024 12:[address] [facility] Hemoglobin 12.4 11.5 - 16.0 g/dL LAB HEMETOLOGY METHOD 05/07/2024 12:[address] [facility] Hematocrit 38.7 35.0 - 47.0 % LAB HEMETOLOGY METHOD 05/07/2024 12:[address] [facility] MCV 99.2(H) 79.0 - 98.0 FL LAB HEMETOLOGY METHOD 05/07/2024 12:[address] [facility] MCH 31.8 27.0 - 32.0 pcg LAB HEMETOLOGY METHOD 05/07/2024 12:[address] [facility] MCHC 32.0 32.0 - 37.0 g/dL LAB HEMETOLOGY METHOD 05/07/2024 12:[address] [facility] RDW 19.9(H) 11.0 - 15.0 % LAB HEMETOLOGY METHOD 05/07/2024 12:[address] [facility] Platelets 384 130 - 400 K/[facility] LAB HEMETOLOGY METHOD 05/07/2024 12:[address] [facility] MPV 10.7 7.0 - 11.0 FL LAB HEMETOLOGY METHOD 05/07/2024 12:[address] [facility] NRBC 0.0 <1.0 % LAB HEMETOLOGY METHOD 05/07/2024 12:[address] [facility] NRBC Absolute 0.00 <0.10 K/[facility] LAB HEMETOLOGY METHOD 05/07/2024 12:[address] [facility] Blood Venous blood specimen / Unknown Venipuncture / Unknown 05/07/2024 8:42 AM EST 05/07/2024 11:51 AM EST Torrey Kwok MD LAB BLOOD ORDERABLES Final Resul t [facility] [address] [place] [address], documented in this encounter Visit Diagnoses Diagnosis Type 2 diabetes mellitus without complications (CMS/HCC) documented in this encounter Care Teams Stummel Selector Relationship Specialty Start Date End Date Torrey Kwok MD [address] [place] [address] [address] [place] [address] PCP - General Geriatric Medicine 04/25/24 documented as of this encounter
--- OUTSIDE RECORDS SUMMARY | 2024-06-14 22:13 | XMS_ITS | Encounter Summary ---
Author Organization [facility] Address [address] [place] [address] Care Team Providers Care Freelance Interpreter/Translator Name Role Phone Torrey Kwok MD Primary Care Provider [phone] Encounter Details Date Type Department Care Team (Late st Contact Info) Description 06/02/2024 Lab Requisition [facility] - Main Lab [address] [facility] [place] [address] Torrey Kwok MD [address] [place], [place] [id number] Chronic diastolic (congestive) heart failure (CMS/HCC); Chronic kidney disease, stage 3 unspecified (CMS/HCC) Social History Tobacco Use Types Packs/Day [...] Associated Diagnosis Comments COMPLETE BLOOD COUNT STAT 06/02/2024 12:17 PM EST Chronic diastolic (congestive) heart failure (CMS/HCC) Chronic kidney disease, stage 3 unspecified (CMS/HCC) BASIC METABOLIC PANEL STAT 06/02/2024 12:17 PM EST Chronic diastolic (congestive) heart failure (CMS/HCC) Chronic kidney disease, stage 3 unspecified (CMS/HCC) documented in this encounter Results * (ABNORMAL) Basic metabolic panel (06/02/2024 12:17 PM EST) Sodium 130(L) 133 - 145 mmol/L LAB CHEMISTRY METHOD 06/02/2024 3:36 PM [facility] Potassium 3.5 3.5 - 5.5 mmol/L LAB CHEMISTRY METHOD 06/02/2024 3:36 PM [facility] Chloride 93(L) 96 - 110 mmol/L LAB CHEMISTRY METHOD 06/02/2024 3:36 PM [facility] CO2 29 21 - 32 mmol/L LAB CHEMISTRY METHOD 06/02/2024 3:36 PM [facility] Anion Gap 8 3 - 11 LAB CHEMISTRY METHOD 06/02/2024 3:36 PM [facility] Glucose 468(HH) 70 - 100 mg/dL LAB CHEMISTRY METHOD 06/02/2024 3:36 PM [facility] BUN 43(H) 5 - 25 mg/dL LAB CHEMISTRY METHOD 06/02/2024 3:36 PM [facility] Creatinine 1.43(H) 0.50 - 1.10 mg/dL LAB CHEMISTRY METHOD 06/02/2024 3:36 PM [facility] eGFR 36(L) >=60 mL/min/1. 73m2 LAB CHEMISTRY METHOD 06/02/2024 3:36 PM [facility] Comment:Calculation based on the??Chronic Kidney Disease Epidemiology Collaboration (CKD-EPI) equation refit??without adjustment for race. BUN/Creatinine Ratio 30.1 LAB CHEMISTRY METHOD 06/02/2024 3:36 PM [facility] Calcium 8.7 8.5 - 10.5 mg/dL LAB CHEMISTRY METHOD 06/02/2024 3:36 PM [facility] Blood Venous blood specimen / Unknown Venipuncture / Unknown 06/02/2024 12:17 PM EST 06/02/2024 2:05 PM EST us Torrey Kwok MD LAB BLOOD ORDERABLES Final Resul t [facility] [address] [place] [address], * (ABNORMAL) Complete blood count (06/02/2024 12:17 PM EST) [facility] WBC 9.0 4.8 - 10.8 K/mcL LAB HEMETOLOGY METHOD 06/02/2024 2:27 PM [facility] RBC 3.60(L) 3.80 - 4.80 M/mcL LAB HEMETOLOGY METHOD 06/02/2024 2:27 PM [facility] Hemoglobin 11.5 11.5 - 16.0 g/dL LAB HEMETOLOGY METHOD 06/02/2024 2:27 PM [facility] Hematocrit 35.4 35.0 - 47.0 % LAB HEMETOLOGY METHOD 06/02/2024 2:27 PM [facility] MCV 97.8 79.0 - 98.0 FL LAB HEMETOLOGY METHOD 06/02/2024 2:27 PM [facility] MCH 31.8 27.0 - 32.0 pcg LAB HEMETOLOGY METHOD 06/02/2024 2:27 PM [facility] MCHC 32.5 32.0 - 37.0 g/dL LAB HEMETOLOGY METHOD 06/02/2024 2:27 PM [facility] RDW 17.8(H) 11.0 - 15.0 % LAB HEMETOLOGY METHOD 06/02/2024 2:27 PM [facility] Platelets 342 130 - 400 K/mcL LAB HEMETOLOGY METHOD 06/02/2024 2:27 PM [facility] MPV 10.4 7.0 - 11.0 FL LAB HEMETOLOGY METHOD 06/02/2024 2:27 PM [facility] NRBC 0.0 <1.0 % LAB HEMETOLOGY METHOD 06/02/2024 2:[address] [facility] NRBC Absolute 0.00 <0.10 K/mcL LAB HEMETOLOGY METHOD 06/02/2024 2:[address] [facility] Blood Venous blood specimen / Unknown Venipuncture / Unknown 06/02/2024 12:17 PM EST 06/02/2024 2:05 PM EST Torrey Kwok MD LAB BLOOD ORDERABLES Final Resul t [facility] [address] [place] [address], documented in this encounter Visit Diagnoses Diagnosis Chronic diastolic (congestive) heart failure (CMS/HCC) Chronic kidney disease, stage 3 unspecified (CMS/HCC) documented in this encounter Care Teams Freelance Interpreter/Translator Relationship Specialty Start Date End Date Torrey Kwok MD [address] [place] [address] [address] [place] [address] PCP - General Geriatric Medicine 04/25/24 documented as of this encounter
--- OUTSIDE RECORDS SUMMARY | 2024-06-14 22:13 | XMS_ITS | Encounter Summary ---
Author Organization [facility] Address [address] [place] [address] Care Team Providers Care Consulting Actuary Name Role Phone Torrey Kwok MD Primary Care Provider [phone] Encounter Details Date Type Department Care Team (Late st Contact Info) Description 04/25/2024 Lab Requisition [facility] - Main Lab [address] [facility] [place] [address] Torrey Kwok MD [address] [place] [address] Vitamin D deficiency, unspecified; Type 2 diabetes [...] Final Resul t [facility] [address] [place] [address], [place] [phone] * Thyroid stimulating hormone (04/25/2024 5:49 AM EST) TSH 3.04 0.40 - 4.00 mcIU/mL LAB CHEMISTRY METHOD 04/25/2024 10:35 AM EST [facility] Blood Venous blood specimen / Unknown Venipuncture / Unknown 04/25/2024 5:49 AM EST 04/25/2024 9:21 AM EST us Torrey Kwok MD LAB BLOOD ORDERABLES Final Resul t [facility] [address] [place] [address], [place] [phone] * Folate (04/25/2024 5:49 AM EST) Folate 12.8 2.8 - 17.0 ng/ml LAB CHEMISTRY METHOD 04/25/2024 11:26 AM EST [facility] Blood Venous blood specimen / Unknown Venipuncture / Unknown 04/25/2024 5:49 AM EST 04/25/2024 9:21 AM EST us Torrey Kwok MD LAB BLOOD ORDERABLES Final Resul t [facility] [address] [place] [address], [place] [phone] * Vitamin B12 (04/25/2024 5:49 AM EST) Vitamin B-12 711 250 - 900 pcg/mL LAB CHEMISTRY METHOD 04/25/2024 11:26 AM EST [facility] Blood Venous blood specimen / Unknown Venipuncture / Unknown 04/25/2024 5:49 AM EST 04/25/2024 9:21 AM EST us Torrey Kwok MD LAB BLOOD ORDERABLES Final Resul t Performing Organization Address City/[facility]/ZIP Co de Phone Number [facility] [address] [place] [address], [place] [phone] * (ABNORMAL) Hemoglobin A1c (04/25/2024 5:49 AM EST) [facility] Hemoglobin A1C 8.7(H) <6.5 % LAB CHEMISTRY METHOD 04/25/2024 1:33 PM EST [facility] Mean Bld Glu Estim. 203 mg/dL LAB CHEMISTRY METHOD 04/25/2024 1:33 PM EST [facility] Blood Venous blood specimen / Unknown Venipuncture / Unknown 04/25/2024 5:49 AM EST 04/25/2024 9:21 AM EST Torrey Kwok MD LAB BLOOD ORDERABLES Final Resul t Performing Organization Address [facility]/ZIP Co de Phone Number [facility] [address] [place] [address], [place] [phone] * (ABNORMAL) Comprehensive metabolic panel (04/25/2024 5:49 AM EST) [facility] Sodium 135 133 - 145 mmol/L LAB CHEMISTRY METHOD 04/25/2024 11:26 AM [facility] Potassium 4.0 3.5 - 5.5 mmol/L LAB CHEMISTRY METHOD 04/25/2024 11:26 AM [facility] Chloride 98 96 - 110 mmol/L LAB CHEMISTRY METHOD 04/25/2024 11:26 AM [facility] CO2 30 21 - 32 mmol/L LAB CHEMISTRY METHOD 04/25/2024 11:26 AM [facility] Anion Gap 7 3 - 11 LAB CHEMISTRY METHOD 04/25/2024 11:26 AM [facility] Glucose 290(H) 70 - 100 mg/dL LAB CHEMISTRY METHOD 04/25/2024 11:26 AM [facility] BUN 25 5 - 25 mg/dL LAB CHEMISTRY METHOD 04/25/2024 11:26 AM [facility] Creatinine 1.06 0.50 - 1.10 mg/dL LAB CHEMISTRY METHOD 04/25/2024 11:26 AM [facility] eGFR 51(L) >=60 mL/min/1. 73m2 LAB CHEMISTRY METHOD 04/25/2024 11:26 AM [facility] Comment:Calculation based on the??Chronic Kidney Disease Epidemiology Collaboration (CKD-EPI) equation refit??without adjustment for race. BUN/Creatinine Ratio 23.6 LAB CHEMISTRY METHOD 04/25/2024 11:26 AM [facility] Calcium 8.2(L) 8.5 - 10.5 mg/dL LAB CHEMISTRY METHOD 04/25/2024 11:26 AM [facility] AST (SGOT) 17 10 - 42 unit/L LAB CHEMISTRY METHOD 04/25/2024 11:26 AM [facility] ALT (SGPT) 16 10 - 60 unit/L LAB CHEMISTRY METHOD 04/25/2024 11:26 AM [facility] Alkaline Phosphatase 81 42 - 121 unit/L LAB CHEMISTRY METHOD 04/25/2024 11:26 AM [facility] Total Protein 5.3(L) 6.0 - 8.0 g/dL LAB CHEMISTRY METHOD 04/25/2024 11:26 AM [facility] Albumin 2.7(L) 3.2 - 5.0 g/dL LAB CHEMISTRY METHOD 04/25/2024 11:26 AM [facility] Total Bilirubin 1.2 0.0 - 1.4 mg/dL LAB CHEMISTRY METHOD 04/25/2024 11:26 AM [facility] Blood Venous blood specimen / Unknown Venipuncture / Unknown 04/25/2024 5:49 AM EST 04/25/2024 9:21 AM EST us Torrey Kwok MD LAB BLOOD ORDERABLES Final Resul t [facility] [address] [place] [address], * (ABNORMAL) Complete blood count (04/25/2024 5:49 AM EST) WBC 7.7 4.8 - 10.8 K/mcL LAB HEMETOLOGY METHOD 04/25/2024 10:07 AM EST [facility] RBC 2.90(L) 3.80 - 4.80 M/mcL LAB HEMETOLOGY METHOD 04/25/2024 10:07 AM [facility] Hemoglobin 9.1(L) 11.5 - 16.0 g/dL LAB HEMETOLOGY METHOD 04/25/2024 10:07 AM [facility] Hematocrit 27.7(L) 35.0 - 47.0 % LAB HEMETOLOGY METHOD 04/25/2024 10:07 AM [facility] MCV 94.9 79.0 - 98.0 FL LAB HEMETOLOGY METHOD 04/25/2024 10:07 AM [facility] MCH 31.2 27.0 - 32.0 pcg LAB HEMETOLOGY METHOD 04/25/2024 10:07 AM [facility] MCHC 32.9 32.0 - 37.0 g/dL LAB HEMETOLOGY METHOD 04/25/2024 10:07 AM [facility] RDW 15.5(H) 11.0 - 15.0 % LAB HEMETOLOGY METHOD 04/25/2024 10:07 AM [facility] Platelets 214 130 - 400 K/mcL LAB HEMETOLOGY METHOD 04/25/2024 10:07 AM [facility] MPV 10.8 7.0 - 11.0 FL LAB HEMETOLOGY METHOD 04/25/2024 10:07 AM EST [facility] NRBC 0.0 <1.0 % LAB HEMETOLOGY METHOD 04/25/2024 10:07 AM EST [facility] NRBC Absolute 0.00 <0.10 K/mcL LAB HEMETOLOGY METHOD 04/25/2024 10:07 AM EST [facility] Blood Venous blood specimen / Unknown Venipuncture / Unknown 04/25/2024 5:49 AM EST 04/25/2024 9:21 AM EST us Torrey Kwok MD LAB BLOOD ORDERABLES Final Resul t [facility] [address] [place] [address], documented in this encounter Visit Diagnoses Diagnosis Vitamin D deficiency, unspecified 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
--- OUTSIDE RECORDS SUMMARY | 2024-06-14 22:13 | XMS_ITS | Encounter Summary ---
Author Organization [facility] Address [address] [place] [address] Care Team Providers Care Driver Manager Name Role Phone Torrey Kwok MD Primary Care Provider [phone] Encounter Details Date Type Department Care Team (Late st Contact Info) Description 05/24/2024 Lab Requisition [facility] - Main Lab 299 [facility] [place] [address] Torrey Kwok MD [address] [place] [address] Type 2 diabetes mellitus with diabetic chronic [...] mmol/L LAB CHEMISTRY METHOD 05/26/2024 11:56 AM [facility] Potassium 3.5 3.5 - 5.5 mmol/L LAB CHEMISTRY METHOD 05/26/2024 11:56 AM [facility] Chloride 101 96 - 110 mmol/L LAB CHEMISTRY METHOD 05/26/2024 11:56 AM [facility] CO2 26 21 - 32 mmol/L LAB CHEMISTRY METHOD 05/26/2024 11:56 AM [facility] Anion Gap 14(H) 3 - 11 LAB CHEMISTRY METHOD 05/26/2024 11:56 AM [facility] Glucose 200(H) 70 - 100 mg/dL LAB CHEMISTRY METHOD 05/26/2024 11:56 AM [facility] BUN 35(H) 5 - 25 mg/dL LAB CHEMISTRY METHOD 05/26/2024 11:56 AM [facility] Creatinine 1.16(H) 0.50 - 1.10 mg/dL LAB CHEMISTRY METHOD 05/26/2024 11:56 AM [facility] eGFR 46(L) >=60 mL/min/1. 73m2 LAB CHEMISTRY METHOD 05/26/2024 11:56 AM [facility] Comment:Calculation based on the??Chronic Kidney Disease Epidemiology Collaboration (CKD-EPI) equation refit??without adjustment for race. BUN/Creatinine Ratio 30.2 LAB CHEMISTRY METHOD 05/26/2024 11:56 AM [facility] Calcium 8.9 8.5 - 10.5 mg/dL LAB CHEMISTRY METHOD 05/26/2024 11:56 AM [facility] AST (SGOT) 21 10 - 42 unit/L LAB CHEMISTRY METHOD 05/26/2024 11:56 AM [facility] ALT (SGPT) 20 10 - 60 unit/L LAB CHEMISTRY METHOD 05/26/2024 11:56 AM [facility] Alkaline Phosphatase 146(H) 42 - 121 unit/L LAB CHEMISTRY METHOD 05/26/2024 11:56 AM [facility] Total Protein 6.8 6.0 - 8.0 g/dL LAB CHEMISTRY METHOD 05/26/2024 11:56 AM [facility] Albumin 3.6 3.2 - 5.0 g/dL LAB CHEMISTRY METHOD 05/26/2024 11:56 AM [facility] Total Bilirubin 0.6 0.0 - 1.4 mg/dL LAB CHEMISTRY METHOD 05/26/2024 11:56 AM [facility] Blood Venous blood specimen / Unknown Venipuncture / Unknown 05/26/2024 5:59 AM EST 05/26/2024 11:00 AM EST us Torrey Kwok MD LAB BLOOD ORDERABLES Final Resul t [facility] [address] [place] [address], * (ABNORMAL) B-type natriuretic peptide (05/26/2024 5:59 AM EST) BNP 320(H) <=100 pcg/mL LAB CHEMISTRY METHOD 05/26/2024 1:35 PM EST [facility] Blood Venous blood specimen / Unknown Venipuncture / Unknown 05/26/2024 5:59 AM EST 05/26/2024 11:00 AM EST us Torrey Kwok MD LAB BLOOD ORDERABLES Final Resul t [facility] [address] [place] [address], [place] [phone] * (ABNORMAL) Basic metabolic panel (05/26/2024 5:59 AM EST) Pathologist [facility] Sodium 141 133 - 145 mmol/L LAB CHEMISTRY METHOD 05/26/2024 11:50 AM [facility] Potassium 3.5 3.5 - 5.5 mmol/L LAB CHEMISTRY METHOD 05/26/2024 11:50 AM [facility] Chloride 101 96 - 110 mmol/L LAB CHEMISTRY METHOD 05/26/2024 11:50 AM [facility] CO2 26 21 - 32 mmol/L LAB CHEMISTRY METHOD 05/26/2024 11:50 AM [facility] Anion Gap 14(H) 3 - 11 LAB CHEMISTRY METHOD 05/26/2024 11:50 AM [facility] Glucose 200(H) 70 - 100 mg/dL LAB CHEMISTRY METHOD 05/26/2024 11:50 AM [facility] BUN 35(H) 5 - 25 mg/dL LAB CHEMISTRY METHOD 05/26/2024 11:50 AM [facility] Creatinine 1.16(H) 0.50 - 1.10 mg/dL LAB CHEMISTRY METHOD 05/26/2024 11:50 AM [facility] eGFR 46(L) >=60 mL/min/1. 73m2 LAB CHEMISTRY METHOD 05/26/2024 11:50 AM EST [facility] Comment:Calculation based on the??Chronic Kidney Disease Epidemiology Collaboration (CKD-EPI) equation refit??without adjustment for race. BUN/Creatinine Ratio 30.2 LAB CHEMISTRY METHOD 05/26/2024 11:50 AM [facility] Calcium 8.9 8.5 - 10.5 mg/dL LAB CHEMISTRY METHOD 05/26/2024 11:50 AM [facility] Blood Venous blood specimen / Unknown Venipuncture / Unknown 05/26/2024 5:59 AM EST 05/26/2024 11:00 AM EST us Torrey Kwok MD LAB BLOOD ORDERABLES Final Resul t [facility] [address] [place] [address], [place] [phone] * (ABNORMAL) Complete blood count (05/26/2024 5:59 AM EST) WBC 10.4 4.8 - 10.8 K/mcL LAB HEMETOLOGY METHOD 05/26/2024 11:12 AM [facility] RBC 3.30(L) 3.80 - 4.80 M/mcL LAB HEMETOLOGY METHOD 05/26/2024 11:12 AM [facility] Hemoglobin 10.7(L) 11.5 - 16.0 g/dL LAB HEMETOLOGY METHOD 05/26/2024 11:12 AM [facility] Hematocrit 34.0(L) 35.0 - 47.0 % LAB HEMETOLOGY METHOD 05/26/2024 11:12 AM [facility] MCV 102.1(H) 79.0 - 98.0 FL LAB HEMETOLOGY METHOD 05/26/2024 11:12 AM [facility] MCH 32.1(H) 27.0 - 32.0 pcg LAB HEMETOLOGY METHOD 05/26/2024 11:12 AM [facility] MCHC 31.5(L) 32.0 - 37.0 g/dL LAB HEMETOLOGY METHOD 05/26/2024 11:12 AM [facility] RDW 19.8(H) 11.0 - 15.0 % LAB HEMETOLOGY METHOD 05/26/2024 11:12 AM [facility] Platelets 418(H) 130 - 400 K/mcL LAB HEMETOLOGY METHOD 05/26/2024 11:12 AM [facility] MPV 10.0 7.0 - 11.0 FL LAB HEMETOLOGY METHOD 05/26/2024 11:12 AM [facility] NRBC 0.0 <1.0 % LAB HEMETOLOGY METHOD 05/26/2024 11:12 AM [facility] NRBC Absolute 0.00 <0.10 K/mcL LAB HEMETOLOGY METHOD 05/26/2024 11:12 AM [facility] Blood Venous blood specimen / Unknown Venipuncture / Unknown 05/26/2024 5:59 AM EST 05/26/2024 11:00 AM EST us Torrey Kwok MD LAB BLOOD ORDERABLES Final Resul t [facility] [address] [place] [address], documented in this encounter Visit Diagnoses Diagnosis Type 2 diabetes mellitus with diabetic chronic kidney disease (CMS/HCC) Essential (primary) hypertension Unspecified essential hypertension Heart failure, unspecified (CMS/HCC) Heart failure, unspecified 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
--- OUTSIDE RECORDS SUMMARY | 2024-06-14 22:13 | XMS_ITS | Encounter Summary ---
Author Organization [facility] Address [address] [place] [address] Care Team Providers Care Fire Assistant Name Role Phone Torrey Kwok MD Primary Care Provider [phone] Encounter Details Date Type Department Care Team (Late st Contact Info) Description 05/31/2024 Lab Requisition [facility] - Main Lab 299 [facility] [place] [address] Torrey Kwok MD [address] [place] [address] Type 2 diabetes mellitus with diabetic chronic kidney disease (CMS/HCC); Essential (primary) hypertension; Heart failure, unspecified (CMS/HCC); 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) Social History Tobacco Use [...] Associated Diagnosis Comments COMPLETE BLOOD COUNT Routine 06/02/2024 5:33 AM EST Type 2 diabetes mellitus with diabetic chronic kidney disease (CMS/HCC) Essential (primary) hypertension Heart failure, unspecified (CMS/HCC) 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) BASIC METABOLIC PANEL Routine 06/02/2024 5:33 AM EST Type 2 diabetes mellitus with diabetic chronic kidney disease (CMS/HCC) Essential (primary) hypertension Heart failure, unspecified (CMS/HCC) 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) documented in this encounter Results * (ABNORMAL) Basic metabolic panel (06/02/2024 5:33 AM EST) Sodium 133 133 - 145 mmol/L LAB CHEMISTRY METHOD 06/02/2024 1:18 PM [facility] Potassium 3.7 3.5 - 5.5 mmol/L LAB CHEMISTRY METHOD 06/02/2024 1:18 PM [facility] Chloride 94(L) 96 - 110 mmol/L LAB CHEMISTRY METHOD 06/02/2024 1:18 PM [facility] CO2 27 21 - 32 mmol/L LAB CHEMISTRY METHOD 06/02/2024 1:18 PM [facility] Anion Gap 12(H) 3 - 11 LAB CHEMISTRY METHOD 06/02/2024 1:18 PM [facility] Glucose 464(HH) 70 - 100 mg/dL LAB CHEMISTRY METHOD 06/02/2024 1:18 PM [facility] BUN 34(H) 5 - 25 mg/dL LAB CHEMISTRY METHOD 06/02/2024 1:18 PM [facility] Creatinine 1.18(H) 0.50 - 1.10 mg/dL LAB CHEMISTRY METHOD 06/02/2024 1:18 PM [facility] eGFR 45(L) >=60 mL/min/1. 73m2 LAB CHEMISTRY METHOD 06/02/2024 1:18 PM [facility] Comment:Calculation based on the??Chronic Kidney Disease Epidemiology Collaboration (CKD-EPI) equation refit??without adjustment for race. BUN/Creatinine Ratio 28.8 LAB CHEMISTRY METHOD 06/02/2024 1:18 PM [facility] Calcium 9.0 8.5 - 10.5 mg/dL LAB CHEMISTRY METHOD 06/02/2024 1:18 PM [facility] Blood Venous blood specimen / Unknown Venipuncture / Unknown 06/02/2024 5:33 AM EST 06/02/2024 10:52 AM EST us Torrey Kwok MD LAB BLOOD ORDERABLES Final Resul t [facility] [address] [place] [address], [place] [phone] * (ABNORMAL) Complete blood count (06/02/2024 5:33 AM EST) WBC 9.9 4.8 - 10.8 K/mcL LAB HEMETOLOGY METHOD 06/02/2024 2:00 PM [facility] RBC 3.70(L) 3.80 - 4.80 M/mcL LAB HEMETOLOGY METHOD 06/02/2024 2:00 PM [facility] Hemoglobin 11.5 11.5 - 16.0 g/dL LAB HEMETOLOGY METHOD 06/02/2024 2:00 PM [facility] Hematocrit 37.8 35.0 - 47.0 % LAB HEMETOLOGY METHOD 06/02/2024 2:00 PM [facility] MCV 103.6(H) 79.0 - 98.0 FL LAB HEMETOLOGY METHOD 06/02/2024 2:00 PM [facility] MCH 31.5 27.0 - 32.0 pcg LAB HEMETOLOGY METHOD 06/02/2024 2:00 PM [facility] MCHC 30.4(L) 32.0 - 37.0 g/dL LAB HEMETOLOGY METHOD 06/02/2024 2:00 PM [facility] RDW 18.5(H) 11.0 - 15.0 % LAB HEMETOLOGY METHOD 06/02/2024 2:00 PM [facility] Platelets 365 130 - 400 K/mcL LAB HEMETOLOGY METHOD 06/02/2024 2:00 PM [facility] MPV 10.4 7.0 - 11.0 FL LAB HEMETOLOGY METHOD 06/02/2024 2:00 PM EST [facility] NRBC 0.0 <1.0 % LAB HEMETOLOGY METHOD 06/02/2024 2:00 PM EST [facility] NRBC Absolute 0.00 <0.10 K/mcL LAB HEMETOLOGY METHOD 06/02/2024 2:00 PM EST [facility] Blood Venous blood specimen / Unknown Venipuncture / Unknown 06/02/2024 5:33 AM EST 06/02/2024 10:52 AM EST Torrey Kwok MD LAB BLOOD ORDERABLES Final Resul t [facility] [address] [place] [address], documented in this encounter Visit Diagnoses Diagnosis Type 2 diabetes mellitus with diabetic chronic kidney disease (CMS/HCC) Essential (primary) hypertension Unspecified essential hypertension Heart failure, unspecified (CMS/HCC) Heart failure, unspecified 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
--- OUTSIDE RECORDS SUMMARY | 2024-06-14 22:13 | XMS_ITS | Encounter Summary ---
Author Organization [facility] Address [address] [place] [address] Care Team Providers Care Design Drafter Chief Name Role Phone Torrey Kwok MD Primary Care Provider [phone] Encounter Details Date Type Department Care Team (Late st Contact Info) Description 05/16/2024 Lab Requisition [facility] - Main Lab 299 [facility] [place] [address] Torrey Kwok MD [address] [place] [address] Heart failure, unspecified (CMS/HCC); Essential (primary) hypertension; [...] mmol/L LAB CHEMISTRY METHOD 05/19/2024 2:[address] [facility] Potassium 3.7 3.5 - 5.5 mmol/L LAB CHEMISTRY METHOD 05/19/2024 2:[address] [facility] Chloride 102 96 - 110 mmol/L LAB CHEMISTRY METHOD 05/19/2024 2:[address] [facility] CO2 25 21 - 32 mmol/L LAB CHEMISTRY METHOD 05/19/2024 2:[address] [facility] Anion Gap 10 3 - 11 LAB CHEMISTRY METHOD 05/19/2024 2:[address] [facility] Glucose 92 70 - 100 mg/dL LAB CHEMISTRY METHOD 05/19/2024 2:[address] [facility] BUN 23 5 - 25 mg/dL LAB CHEMISTRY METHOD 05/19/2024 2:[address] [facility] Creatinine 0.97 0.50 - 1.10 mg/dL LAB CHEMISTRY METHOD 05/19/2024 2:[address] [facility] eGFR 57(L) >=60 mL/min/1. 73m2 LAB CHEMISTRY METHOD 05/19/2024 2:[address] [facility] Comment:Calculation based on the??Chronic Kidney Disease Epidemiology Collaboration (CKD-EPI) equation refit??without adjustment for race. BUN/Creatinine Ratio 23.7 LAB CHEMISTRY METHOD 05/19/2024 2:[address] [facility] Calcium 8.8 8.5 - 10.5 mg/dL LAB CHEMISTRY METHOD 05/19/2024 2:[address] [facility] Blood Venous blood specimen / Unknown Venipuncture / Unknown 05/19/2024 7:33 AM EST 05/19/2024 12:17 PM EST us Torrey Kwok MD LAB BLOOD ORDERABLES Final Resul t [facility] [address] [place] [address], * (ABNORMAL) Complete blood count (05/19/2024 7:33 AM EST) [facility] WBC 5.4 4.8 - 10.8 K/mcL LAB HEMETOLOGY METHOD 05/19/2024 1:[address] [facility] RBC 3.50(L) 3.80 - 4.80 M/mcL LAB HEMETOLOGY METHOD 05/19/2024 1:[address] [facility] Hemoglobin 11.1(L) 11.5 - 16.0 g/dL LAB HEMETOLOGY METHOD 05/19/2024 1:[address] [facility] Hematocrit 35.7 35.0 - 47.0 % LAB HEMETOLOGY METHOD 05/19/2024 1:[address] [facility] MCV 103.5(H) 79.0 - 98.0 FL LAB HEMETOLOGY METHOD 05/19/2024 1:[address] [facility] MCH 32.2(H) 27.0 - 32.0 pcg LAB HEMETOLOGY METHOD 05/19/2024 1:[address] [facility] MCHC 31.1(L) 32.0 - 37.0 g/dL LAB HEMETOLOGY METHOD 05/19/2024 1:[address] [facility] RDW 20.0(H) 11.0 - 15.0 % LAB HEMETOLOGY METHOD 05/19/2024 1:[address] [facility] Platelets 344 130 - 400 K/mcL LAB HEMETOLOGY METHOD 05/19/2024 1:[address] [facility] MPV 10.8 7.0 - 11.0 FL LAB HEMETOLOGY METHOD 05/19/2024 1:[address] [facility] NRBC 0.0 <1.0 % LAB HEMETOLOGY METHOD 05/19/2024 1:26 PM EST [facility] NRBC Absolute 0.00 <0.10 K/mcL LAB HEMETOLOGY METHOD 05/19/2024 1:26 PM EST [facility] Blood Venous blood specimen / Unknown Venipuncture / Unknown 05/19/2024 7:33 AM EST 05/19/2024 12:17 PM EST us Torrey Kwok MD LAB BLOOD ORDERABLES Final Resul t [facility] [address] [place] [address], documented in this encounter Visit Diagnoses Diagnosis Heart failure, unspecified (CMS/HCC) Heart failure, unspecified Essential (primary) hypertension Unspecified essential hypertension Type 2 diabetes mellitus with diabetic chronic kidney disease (CMS/HCC) documented in this encounter Care Teams Design Drafter Chief Relationship Specialty Start Date End Date Torrey Kwok MD [address] [place] [address] [address] [place] [address] PCP - General Geriatric Medicine 04/25/24 documented as of this encounter
--- OUTSIDE RECORDS SUMMARY | 2024-06-14 22:13 | XMS_ITS ---
Author Organization [facility] Care Team Providers Care Correspondence Specialist Name Role Phone Elijah Lim Unavailable Unavailable Sasha Garrison Unavailable Unavailable Allergies and adverse reactions No Known Allergies Care Team Name Role Address Phone Organization Dates Elijah Lim PCP [address], [address], [facility] (Office): : [facility] 12/09/2019 - 12/11/2019 Sasha Garrison Attending Physician [address], [address], [facility] (Office): [facility] 12/09/2019 - 12/11/2019 Immunizations Immunization Status Vaccine Details Vaccine Code CodeSystem Arian e Notes TB 2 Step Mantoux Skin Test completed tuberculin skin test; unspecified formulation lotNumber: [id number] expiry: 08/28/2021 Mfg: [employer] offi pasteur Given 0.1 ml Left Forearm intradermally Step 1 of Multi-step 98 CVX created date: 12/09/2019 consent date: 12/09/2019 administere d date: 12/10/2019 Mental Status Section Date Assessment Total Score Description 12/11/2019 BIMS 09 moderate cognit marco antonio impairment Problems Problem # Description Date of onset Resolved Date Code CodeSystem Concern Status 1 CHRONIC DIASTOLIC (CONGESTIVE) HEART FAILURE 12/09/[address] active 2 CONSTIPATION, UNSPECIFIED 12/09/[address] active 3 ESSENTIAL (PRIMARY) HYPERTENSION 12/09/[address] active 4 HYPOTHYROIDISM, UNSPECIFIED 12/09/[address] active 5 OTHER LACK OF COORDINATION 12/09/[address] active 6 PAIN IN RIGHT HIP 12/09/[address] active 7 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 12/09/[address] active 8 TYPE 2 DIABETES MELLITUS WITHOUT COMPLICATIONS 12/09/[address] active 9 UNSPECIFIED ATRIAL FIBRILLATION 12/09/[address] active 10 UNSPECIFIED FALL, SUBSEQUENT ENCOUNTER 12/09/[address] active 11 UNSPECIFIED OSTEOARTHRITIS, UNSPECIFIED SITE 12/09/[address] active 12 UNSTEADINESS ON FEET 12/09/[address] active 13 WEAKNESS 12/09/[address] active Reason for Referral No Reasons for Referral Entered Social History Social History Observation Description Start Date End Date Code Code System Current Smoking Status Tobacco smoking consumption unknown 329244957 SNOMED CT Sex Assigned At Female 1935 14578-2 [facility] Vital Signs Code Code System Vitals Name Values and Units Timing Information 40110-4 [facility] Pain Level Value=0.0 12/11/2019 9279-1 [facility] Respiratory Rate Value=18.0 Units=/m in 12/11/2019 8462-4 [facility] Blood Pressure-Diastolic Value=57 Un its=mmHg 12/11/2019 8480-6 [facility] Blood Pressure-Systolic Gjhgr=548 Un its=mmHg 12/11/2019 8310-5 [facility] Body Temperature Value=97.1 Units=?? F 12/11/2019 8867-4 [facility] Heart rate Value=63.0 Units=/min 06/2019 11178-4 [facility] O2 % BldC Oximetry Value=95.0 Units= % 12/11/2019 2339-0 [facility] Blood Sugar Lunos=972.0 Units=mg/dL 12/11/2019 46849-8 [facility] Weight Pjpvd=943.6 Units=Lbs 05/2019 8302-2 [facility] Height Value=62.0 Units=Inches 12/09/2019
--- OUTSIDE RECORDS SUMMARY | 2024-06-14 22:13 | XMS_ITS | Patient Health Record ---
Author Organization [facility] Address [address] [place] [address] Care Team Providers Care Glass Sagger Name Role Phone Po Monique HODGE Primary Care Provider John Moore Jr Unavailable [phone] Allergies Allergen (clinical drug ingredient) Drug/Non Drug Allergy documented on EMR Reaction Allergy Type Onset Date Status codeine Codeine Sulfate Unknown Drug Allergy A ctive Reason For Referral No Information Medications Medication [...] Active Omeprazole 20 TAKE 1 CAPSULE BY [facility] TWICE DAILY for 90 days Active Immunizations Vaccine Route Administration Date Status Comme nts Influenza Unknown 02/08/2016 Administered Influenza Unknown 02/07/2018 Administered Problems Problem Type SNOMED Code ICD Code Onset Dates Problem Status W/U Status Risk Notes Problem 972728385 Gastro-esophagea l reflux disease without esophagitis (K21.9) Active confirmed Problem 61516922 Dysphagia, unspecified type (R13.10) Active confirmed Problem 881678890 Abnormal UGI series (R93.3) Active confirmed Problem 35556157 Hypertension, unspecified type (I10) Active confirmed Encounters Encounter Location Date Provider Diagnosis [facility] [address] [place] [address] 07/09/2023 John Epps Jr Plan Of Treatment Pending Test Test Name Order Date XR GI SERIES 07/20/2016 Insurance Providers Payer Name Payer Address Payer Phone Subscriber Number Group Number Insured Name Patient Relationship to Insured Coverage Start Date Coverage End Date MEDICARE OF [place] [address] [place] [address] [id number] CHARLY SCHWARTZ Self - patient is the insured [employer] CLAIMS [address] [place] [address] [id number] CHARLY SCHWARTZ Self - patient is the insured Medical (General) History Medical History History ICD Code colonoscopy 03/25/2004 diabetes mellitus osteoporosis Hypothyroidism elevated cholesterol hypertension diverticulosis internal hemorrhoids congestive heart failure urinary incontinence-mild Surgical History Surgery Date(Month/Year) cholecystectomy knee surgery section left hip replacement right knee replacement cardioversion 12/2015
--- OUTSIDE RECORDS SUMMARY | 2024-06-14 22:13 | XMS_ITS | Encounter Summary ---
Author Organization [facility] Address [address] [place] [address] Care Team Providers Care Steam And Gas Turbine Assembler Name Role Phone Torrey Kwok MD Primary Care Provider Encounter Details Date Type Department Care Team (Late st Contact Info) Description 05/05/2024 Lab Requisition [facility] - Main Lab 299 [facility] [place] [address] Torrey Kwok MD [address] [place] [address] Chronic kidney disease, stage 3 unspecified (CMS/HCC); [...] LAB CHEMISTRY METHOD 05/05/2024 2:05 PM EST [facility] Potassium 5.0 3.5 - 5.5 mmol/L LAB CHEMISTRY METHOD 05/05/2024 2:05 PM EST [facility] Comment:Hemolysis present Chloride 99 96 - 110 mmol/L LAB CHEMISTRY METHOD 05/05/2024 2:05 PM [facility] CO2 26 21 - 32 mmol/L LAB CHEMISTRY METHOD 05/05/2024 2:05 PM [facility] Anion Gap 9 3 - 11 LAB CHEMISTRY METHOD 05/05/2024 2:05 PM [facility] Glucose 141(H) 70 - 100 mg/dL LAB CHEMISTRY METHOD 05/05/2024 2:05 PM [facility] BUN 23 5 - 25 mg/dL LAB CHEMISTRY METHOD 05/05/2024 2:05 PM [facility] Creatinine 1.08 0.50 - 1.10 mg/dL LAB CHEMISTRY METHOD 05/05/2024 2:05 PM [facility] eGFR 50(L) >=60 mL/min/1. 73m2 LAB CHEMISTRY METHOD 05/05/2024 2:05 PM [facility] Comment:Calculation based on the??Chronic Kidney Disease Epidemiology Collaboration (CKD-EPI) equation refit??without adjustment for race. BUN/Creatinine Ratio 21.3 LAB CHEMISTRY METHOD 05/05/2024 2:05 PM [facility] Calcium 8.3(L) 8.5 - 10.5 mg/dL LAB CHEMISTRY METHOD 05/05/2024 2:05 PM [facility] Blood Venous blood specimen / Unknown Venipuncture / Unknown 05/05/2024 5:43 AM EST 05/05/2024 11:40 AM EST us Torrey Kwok MD LAB BLOOD ORDERABLES Final Resul t [facility] [address] [place] [address], documented in this encounter Visit Diagnoses Diagnosis Chronic kidney disease, stage 3 unspecified (CMS/HCC) Type 2 diabetes mellitus with diabetic chronic kidney disease (CMS/HCC) documented in this encounter Care Teams Steam And Gas Turbine Assembler Relationship Specialty Start Date End Date Torrey Kwok MD [address] [place] [address] [address] [place] [address] PCP - General Geriatric Medicine 04/25/24 documented as of this encounter
--- OUTSIDE RECORDS SUMMARY | 2024-06-14 22:13 | XMS_ITS | Encounter Summary ---
Author Organization [facility] Address [address] [place] [address] Care Team Providers Care Capper Machine Operator Name Role Phone Torrey Kwok MD Primary Care Provider [phone] Encounter Details Date Type Department Care Team (Late st Contact Info) Description 05/09/2024 Lab Requisition [facility] - Main Lab [address] [facility] [place] [address] Torrey Kwok MD [address] [place], [place] [id number] Type 2 diabetes mellitus with unspecified diabetic [...] (CMS/HCC) documented in this encounter Care Teams Capper Machine Operator Relationship Specialty Start Date End Date Torrey Kwok MD [address] [place], [place] [id number] PCP - General Geriatric Medicine 04/25/24 documented as of this encounter
--- OUTSIDE RECORDS SUMMARY | 2024-06-14 22:13 | XMS_ITS | Encounter Summary ---
Author Organization [facility] Address [address] [place] [address] Care Team Providers Care Coal Pipeline Operator Name Role Phone Torrey Kwok MD Primary Care Provider [phone] Encounter Details Date Type Department Care Team (Late st Contact Info) Description 05/09/2024 Lab Requisition [facility] - Main Lab 299 [facility] [place] [address] Torrey Kwok MD [address] [place] [address] Type 2 diabetes mellitus with unspecified diabetic [...] mmol/L LAB CHEMISTRY METHOD 05/12/2024 1:22 PM [facility] Potassium 3.5 3.5 - 5.5 mmol/L LAB CHEMISTRY METHOD 05/12/2024 1:22 PM [facility] Chloride 98 96 - 110 mmol/L LAB CHEMISTRY METHOD 05/12/2024 1:22 PM [facility] CO2 30 21 - 32 mmol/L LAB CHEMISTRY METHOD 05/12/2024 1:22 PM [facility] Anion Gap 7 3 - 11 LAB CHEMISTRY METHOD 05/12/2024 1:22 PM [facility] Glucose 219(H) 70 - 100 mg/dL LAB CHEMISTRY METHOD 05/12/2024 1:22 PM [facility] BUN 28(H) 5 - 25 mg/dL LAB CHEMISTRY METHOD 05/12/2024 1:22 PM [facility] Creatinine 0.97 0.50 - 1.10 mg/dL LAB CHEMISTRY METHOD 05/12/2024 1:22 PM [facility] eGFR 57(L) >=60 mL/min/1. 73m2 LAB CHEMISTRY METHOD 05/12/2024 1:22 PM [facility] Comment:Calculation based on the??Chronic Kidney Disease Epidemiology Collaboration (CKD-EPI) equation refit??without adjustment for race. BUN/Creatinine Ratio 28.9 LAB CHEMISTRY METHOD 05/12/2024 1:22 PM [facility] Calcium 8.6 8.5 - 10.5 mg/dL LAB CHEMISTRY METHOD 05/12/2024 1:22 PM [facility] Blood Venous blood specimen / Unknown 05/12/2024 5:48 AM EST 05/12/2024 11:28 AM EST us Torrey Kwok MD LAB BLOOD ORDERABLES Final Resul t [facility] [address] [place] [address], * (ABNORMAL) Complete blood count (05/12/2024 5:48 AM EST) WBC 7.5 4.8 - 10.8 K/mcL LAB HEMETOLOGY METHOD 05/12/2024 12:44 PM [facility] RBC 3.30(L) 3.80 - 4.80 M/mcL LAB HEMETOLOGY METHOD 05/12/2024 12:44 PM [facility] Hemoglobin 10.5(L) 11.5 - 16.0 g/dL LAB HEMETOLOGY METHOD 05/12/2024 12:44 PM [facility] Hematocrit 33.5(L) 35.0 - 47.0 % LAB HEMETOLOGY METHOD 05/12/2024 12:44 PM [facility] MCV 100.9(H) 79.0 - 98.0 FL LAB HEMETOLOGY METHOD 05/12/2024 12:44 PM [facility] MCH 31.6 27.0 - 32.0 pcg LAB HEMETOLOGY METHOD 05/12/2024 12:44 PM [facility] MCHC 31.3(L) 32.0 - 37.0 g/dL LAB HEMETOLOGY METHOD 05/12/2024 12:44 PM [facility] RDW 20.0(H) 11.0 - 15.0 % LAB HEMETOLOGY METHOD 05/12/2024 12:44 PM [facility] Platelets 386 130 - 400 K/mcL LAB HEMETOLOGY METHOD 05/12/2024 12:44 PM [facility] MPV 10.3 7.0 - 11.0 FL LAB HEMETOLOGY METHOD 05/12/2024 12:44 PM EST [facility] NRBC 0.0 <1.0 % LAB HEMETOLOGY METHOD 05/12/2024 12:44 PM EST [facility] NRBC Absolute 0.00 <0.10 K/mcL LAB HEMETOLOGY METHOD 05/12/2024 12:44 PM EST [facility] Blood Venous blood specimen / Unknown 05/12/2024 5:48 AM EST 05/12/2024 11:25 AM EST Torrey Kwok MD LAB BLOOD ORDERABLES Final Resul t [facility] [address] [place] [address], documented in this encounter Visit Diagnoses Diagnosis 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
--- OUTSIDE RECORDS SUMMARY | 2024-06-14 22:13 | XMS_ITS ---
Author Organization [facility] Address [address] [place] [address] Care Team Providers Care Roll Out Manager Name Role Phone Monique White Primary Care Provider Arturo Brown [phone] REASON FOR VISIT Cancel Encounters Encounter Location Date Provider Diagnosis [address] [address] 05/05/2024 Arturo Simon Plan Of Treatment Next Appt Details Provider Name:Arturo Simon , 08/15/2024 10:15:00 AM, [address] [place], [address], Progress Notes * Gerri SCHWARTZ RDOB:[birth year] (88 yo F)Acc No.[id number]:05/05/2024 Patient:?Gerri SCHWARTZ :1935???Age:88 Y???Sex:Female Address:[place], [address] * true * Date:? Generated for Jaquani dontae/Lee/eTransmitting on:?06/14/2024 10:13 PM EST
--- OUTSIDE RECORDS SUMMARY | 2024-06-14 22:14 | XMS_ITS ---
Author Organization [facility] Address [address] [place] [address] Care Team Providers Care Meter Maintenance Person Name Role Phone Monique White Primary Care Provider Arturo Brown Unavailable [phone] Encounters Encounter Location Date Provider Diagnosis [address] [address] 05/06/2024 Arturo Simon Plan Of Treatment Next Appt Details Provider Name:Arturo Simon , 08/15/2024 10:15:00 AM, [address] [place], [address], Progress Notes * Gerri SCHWARTZ RDOB:[birth year] (88 yo F)Acc No.[id number]:05/06/2024 Progress Note Patient:?Gerri SCHWARTZ R Provider:?Arturo Simon DPM :1935???Age:88 Y???Sex:Female D ate:05/06/2024 Address:[phone] Pcp:Monique White Subjective: * Chief Complaints: * ??? * Medical History:? Objective: * Vitals:? Assessment: Plan: * Treatment: * Images: * The named appointment provid er may or may not be the originator of this progress note, and it is not deemed complete until electronically signed by the appointment provider. Sign off status: Pending * Provider:?Arturo Simon DPM Date:?2024 Generated for Awilda diggs/Lee/Nilay on:?06/14/2024 10:13 PM EST
[2024-06-14 22:29] VITALS: BP 135/64; PULSE 87; RESP 14; O2SAT 99
[2024-06-14] MEDS: 0.9 % Sodium Chloride 1,000 ML 999 ML IV (22:31)
[2024-06-14 22:34] LABS: MANUAL DIFF FLAG NO
[2024-06-14 22:35] LABS: Basophils Absolute Auto 0.1 X10*3/uL (0.0-0.2); Basophils Percent Auto 1.8 % (0-2); Eosinophils Absolute Auto 0.3 X10*3/uL (0.0-0.4); Eosinophils Percent Auto 3.7 % (0-4); Hematocrit 33.5 % (37.0-47.0); Hemoglobin 11.1 g/dl (12.0-16.0); Imm Gran Abs Auto 0.05 X10*3/uL (0.00-0.03); Imm Gran Pct Auto 0.7 % (0.0-0.4); Lymphocytes Absolute Auto 1.1 X10*3/uL (1.2-4.9); Lymphocytes Percent Auto 15.3 % (20-40); Mean Corpuscular HGB Conc 33.1 g/dl (31.0-35.0); Mean Corpuscular Hemoglobin 32.4 pg (27.0-33.0); Mean Corpuscular Volume 97.7 fL (80.0-98.0); Mean Platelet Volume 10.2 fL (9.4-12.3); Monocytes Percent Auto 13.8 % (2-11); Neutrophils Absolute Auto 4.7 x10*3/uL (2.0-8.3); Neutrophils Percent Auto 64.7 % (45-73); Platelet Count 332 X10*3/uL (160-400); Red Blood Count 3.43 X10*6/uL (4.20-5.50); Red Cell Distribution Width 18.6 % (11.0-16.0); White Blood Count 7.3 X10*3/uL (4.8-10.8)
[2024-06-14 22:49] LABS: Alanine Aminotransferase 17 U/L (0-31); Albumin Level 3.4 g/dL (3.5-5.0); Alkaline Phosphatase 146 U/L (39-117); Anion Gap 14 (12-20); Aspartate Amino Transferase 23 U/L (5-31); Bilirubin Total 0.5 mg/dL (0.0-1.0); Blood Urea Nitrogen 41 mg/dL (9-16); Calcium 9.2 mg/dL (8.4-10.2); Carbon Dioxide 27 mmol/L (22-29); Chloride 102 mmol/L (96-108); Creatinine Clr Calc Pharmacy 21.9; Estimated Glomerular Filt Rate 33; Glucose Random 215 mg/dL (60-115); Magnesium 2.1 mg/dL (1.6-2.6); Sodium 139 mmol/L (135-145); Total Protein 6.9 g/dL (6.5-8.0)
[2024-06-14 22:50] LABS: Lactic Acid 1.7 mmol/L (0.5-2.0)
[2024-06-14 22:51] LABS: Appearance Urine Clear; Color Urine Yellow; Glucose Urine UA 500 mg/dL (Negative); Leukocyte Esterase Urine Negative (Negative); Nitrite Urine Negative (Negative); Specific Gravity - Urine 1.015 (1.005-1.025); Urine Blood Negative (Negative); Urine Ketones Trace mg/dL (Negative); Urine Protein Trace mg/dL (Neg-Trace)
[2024-06-14 23:47] VITALS: BP 95/48; PULSE 84; RESP 10; O2SAT 95
[2024-06-15] VITALS (8 sets, daily range): BP systolic 95–167; BP diastolic 44–89; PULSE 69–81; RESP 10–16; TEMP 37.1; O2SAT 95–97
--- NOTE | 2024-06-15 08:03 | PC.NURSE ---
[facility] arrive to transport Pt back to [facility]. Overnight RN reports she called facility and spoke with an Maia re: Pts return. Care of Pt relinquished to [facility].
== END 2024-06-15 08:12 | disposition skilled nursing facility (03) ==
PROVIDERS: Emergency Provider Internal Medicine; PCP Family Medicine Geriatric Medicine
DX: G93.41 Metabolic encephalopathy (principal); R51.9 Headache, unspecified; E11.9 Type 2 diabetes mellitus without complications; I11.0 Hypertensive heart disease with heart failure; I50.32 Chronic diastolic (congestive) heart failure; N17.9 Acute kidney failure, unspecified; E78.00 Pure hypercholesterolemia, unspecified; E03.9 Hypothyroidism, unspecified; I48.91 Unspecified atrial fibrillation; Z79.4 Long term (current) use of insulin; Z79.899 Other long term (current) drug therapy; Z79.01 Long term (current) use of anticoagulants; Z79.02 Long term (current) use of antithrombotics/antiplatelets; Z87.891 Personal history of nicotine dependence
CPT/HCPCS: 36415; 70450; 80053; 81003; 83605; 83735; 85025; 87040; 93005; 96360; 99284; 99285

== ENCOUNTER → 2024-06-14 21:46 | Outpatient (BNV) | payer MEDICARE, SELFPAY | PROVIDERS: Emergency Provider Internal Medicine; PCP Family Medicine Geriatric Medicine; Visit Provider Internal Medicine Cardiovascular Disease | DX: I48.91 Unspecified atrial fibrillation (principal) | CPT/HCPCS: 93010 ==

== ENCOUNTER → 2024-06-14 21:47 | Outpatient (BNV) | payer MEDICARE, SELFPAY | PROVIDERS: Emergency Provider Internal Medicine; PCP Family Medicine Geriatric Medicine; Visit Provider Radiology Neuroradiology | DX: R51.9 Headache, unspecified (principal) | CPT/HCPCS: 70450 ==

== ENCOUNTER → 2024-06-16 10:01 | Outpatient (REF) | payer MEDICARE, SELFPAY ==
--- NOTE | 2024-06-16 10:07 | CA_ITS ---
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 Study Quality: Adequate ECG Rhythm: Atrial Fibrillation Conclusions: - The left ventricular systolic function is mildly decreased. The calculated ejection fraction is 51% by biplane method. - The basal inferior, basal inferoseptal, and mid inferolateral segments are akinetic. - There is moderate aortic valve stenosis. - There is moderate mitral annular calcification. - Mild pulmonary hypertension is present. Findings Procedure Information The study quality is limited by the patients inability to tolerate the test. Left Ventricle Normal left ventricular cavity size. There is normal left ventricular wall thickness. The left ventricular systolic function is mildly decreased. The calculated ejection fraction is 51% by biplane method. There is evidence of regional wall motion abnormalities. Diastolic function is indeterminate on the basis of available data. Wall Motion Rest Echo Findings The basal inferior, basal inferoseptal, and mid inferolateral segments are akinetic. Right Ventricle Normal right ventricular cavity size. There is mildly decreased right ventricular systolic function. Atria The left atrium is moderately dilated. The right atrium is mildly dilated. Aortic Valve There is moderate calcification of the aortic valve. There is moderate aortic valve stenosis. The mean gradient is 10 mmHg. The aortic valve area is 0.92 cm2. There is no aortic valve regurgitation. Dimensionless index 0.3. Stroke volume index 30 mL/m2. Mitral Valve There is moderate mitral annular calcification. There is mild mitral valve regurgitation. There is no mitral valve stenosis. Pulmonic Valve The pulmonic valve is likely normal. Tricuspid Valve There is mild tricuspid valve regurgitation. Mild pulmonary hypertension is present. Great Vessels The asc aorta is normal in size. Venous The inferior vena cava is mildly dilated and collapses less than 50% with inspiration. Pericardium/Pleural There is a small loculated pericardial effusion overlying the right ventricle and right atrium. Prior Study Comparison Changes noted compared to prior study dated: 08/10/2023. Improved LVEF; slight progression of aortic stenosis. Measurements 2D Linear Measurements IVSd: 0.97 0.6-0.9/0.6-1.0 cm LVIDd: 3.77 3.9-5.3/4.2-5.9 cm LVIDd Index: 2.42 2.4-3.2/2.2-3.1 cm/m2 LVIDs: 2.53 2.0-3.6 cm LVPWd: 0.84 0.7-1.1 cm LA Diam: 3.40 2.7-3.8/3.0-4.0 cm LAIDs Index: 2.18 1.5-2.3 cm/m2 LV Mass: 125.16 67-162/88-224 g LV Mass Index: 80.23 43-95/49-115 g/m2 LVOT Diam: 2.00 3.0+(-)1.3 cm 2D Systolic Function EF 4C: 45.20 >55% EF 2C: 54.70 >55% EF BiP: 50.50 >55% Mitral Valve MV Pk E: 1.13 MV Decel Time: 193.00 E'Lateral: 6.11 E'Medial: 5.98 E/E' Med: 18.90 E/E' Lat: 18.50 PHT: 56.00 MVA PHT: 3.93 Decel Hamilton: 5.94 Aortic Valve AoV Pk Nick: 2.08 AoV Mn Nick: 1.56 AoV VTI: 0.51 AoV Pk Grad: 17.00 Aov Mn Grad: 10.00 ZECHARIAH Cont.VTI: 0.92 LVOT LVOT Pk Nick: 0.63 LVOT Mn Nick: 0.46 LVOT VTI: 0.15 LVOT Pk Grad: 2.00 LVOT Mn Grad: 1.00 LVOT Diam: 2.00 LVOT Area: 3.14 Diastolic Function MV Pk E: 1.13 E'Medial: 5.98 E/E' Med: 18.90 E' Laterial: 6.11 E/E' Lat: 18.50 Right Ventricle TAPSE (mm): 13.40 TVS' Nick: 7.85 Tricuspid Valve TR Pk Nick: 3.05 TR Pk Grad: 37.00 RA Press: 15.00 RVSP: 52.00 Great Vessels Aorta Sinus of Valsalva: 3.12 2.0-3.[address] [place]: 2.49 1.7-3.4 cm Ao Asc: 3.10 2.1-3.4 cm Updated in Other Vendor System with Status of Final Gene Morrow MD electronically signed on 06/17/2024 10:11:04 AM with status of Final
--- OUTSIDE RECORDS SUMMARY | 2024-06-16 11:08 | XMS_ITS | Encounter Summary ---
Author Organization [facility] Address [address] [place] [address] Care Team Providers Care Contact Lens Fitter Name Role Phone Torrey Kwok MD Primary Care Provider [phone] Encounter Details Date Type Department Care Team (Late st Contact Info) Description 06/02/2024 Lab Requisition [facility] - Main Lab 299 [facility] [place] [address] Torrey Kwok MD [address] [place], [place] [phone] Chronic diastolic (congestive) heart failure (CMS/HCC); Chronic [...] mmol/L LAB CHEMISTRY METHOD 06/02/2024 3:36 PM [facility] Potassium 3.5 3.5 - 5.5 mmol/L LAB CHEMISTRY METHOD 06/02/2024 3:36 PM [facility] Chloride 93(L) 96 - 110 mmol/L LAB CHEMISTRY METHOD 06/02/2024 3:36 PM [facility] CO2 29 21 - 32 mmol/L LAB CHEMISTRY METHOD 06/02/2024 3:36 PM [facility] Anion Gap 8 3 - 11 LAB CHEMISTRY METHOD 06/02/2024 3:36 PM [facility] Glucose 468(HH) 70 - 100 mg/dL LAB CHEMISTRY METHOD 06/02/2024 3:36 PM [facility] BUN 43(H) 5 - 25 mg/dL LAB CHEMISTRY METHOD 06/02/2024 3:36 PM [facility] Creatinine 1.43(H) 0.50 - 1.10 mg/dL LAB CHEMISTRY METHOD 06/02/2024 3:36 PM [facility] eGFR 36(L) >=60 mL/min/1. 73m2 LAB CHEMISTRY METHOD 06/02/2024 3:36 PM [facility] Comment:Calculation based on the??Chronic Kidney Disease Epidemiology Collaboration (CKD-EPI) equation refit??without adjustment for race. BUN/Creatinine Ratio 30.1 LAB CHEMISTRY METHOD 06/02/2024 3:36 PM [facility] Calcium 8.7 8.5 - 10.5 mg/dL LAB CHEMISTRY METHOD 06/02/2024 3:36 PM [facility] Blood Venous blood specimen / Unknown Venipuncture / Unknown 06/02/2024 12:17 PM EST 06/02/2024 2:05 PM EST us Torrey Kwok MD LAB BLOOD ORDERABLES Final Resul t [facility] [address] [place] [address], * (ABNORMAL) Complete blood count (06/02/2024 12:17 PM EST) [facility] WBC 9.0 4.8 - 10.8 K/mcL LAB HEMETOLOGY METHOD 06/02/2024 2:27 PM [facility] RBC 3.60(L) 3.80 - 4.80 M/mcL LAB HEMETOLOGY METHOD 06/02/2024 2:27 PM [facility] Hemoglobin 11.5 11.5 - 16.0 g/dL LAB HEMETOLOGY METHOD 06/02/2024 2:27 PM [facility] Hematocrit 35.4 35.0 - 47.0 % LAB HEMETOLOGY METHOD 06/02/2024 2:27 PM [facility] MCV 97.8 79.0 - 98.0 FL LAB HEMETOLOGY METHOD 06/02/2024 2:27 PM [facility] MCH 31.8 27.0 - 32.0 pcg LAB HEMETOLOGY METHOD 06/02/2024 2:27 PM [facility] MCHC 32.5 32.0 - 37.0 g/dL LAB HEMETOLOGY METHOD 06/02/2024 2:27 PM [facility] RDW 17.8(H) 11.0 - 15.0 % LAB HEMETOLOGY METHOD 06/02/2024 2:27 PM [facility] Platelets 342 130 - 400 K/mcL LAB HEMETOLOGY METHOD 06/02/2024 2:27 PM [facility] MPV 10.4 7.0 - 11.0 FL LAB HEMETOLOGY METHOD 06/02/2024 2:27 PM [facility] NRBC 0.0 <1.0 % LAB HEMETOLOGY METHOD 06/02/2024 2:[address] [facility] NRBC Absolute 0.00 <0.10 K/mcL LAB HEMETOLOGY METHOD 06/02/2024 2:[address] [facility] Blood Venous blood specimen / Unknown Venipuncture / Unknown 06/02/2024 12:17 PM EST 06/02/2024 2:05 PM EST Torrey Kwok MD LAB BLOOD ORDERABLES Final Resul t [facility] [address] [place] [address], documented in this encounter Visit Diagnoses Diagnosis Chronic diastolic (congestive) heart failure (CMS/HCC) Chronic kidney disease, stage 3 unspecified (CMS/HCC) documented in this encounter Care Teams Contact Lens Fitter Relationship Specialty Start Date End Date Torrey Kwok MD [address] [place] [address] [address] [place] [address] PCP - General Geriatric Medicine 04/25/24 documented as of this encounter
--- OUTSIDE RECORDS SUMMARY | 2024-06-16 11:08 | XMS_ITS | Encounter Summary ---
Author Organization [facility] Address [address] [place] [address] Care Team Providers Care Biofuels Production Technician Name Role Phone Torrey Kwok MD Primary Care Provider [phone] Encounter Details Date Type Department Care Team (Late st Contact Info) Description 06/14/2024 Lab Requisition [facility] - Main Lab 299 [facility] [place] [address] Torrey Kwok MD [address] [place] [address] Type 2 diabetes mellitus with diabetic chronic [...] as of this encounter Plan of Treatment Pending Results Name Type Priority Associated Diagnoses Date /Time Complete blood count Lab Routine Type 2 diabetes mellitus with diabetic chronic kidney disease (CMS/HCC) Essential (primary) hypertension Heart failure, unspecified (CMS/HCC) 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) 06/16/2024 5:17 AM EDT Basic metabolic panel Lab Routine Type 2 diabetes mellitus with diabetic chronic kidney disease (CMS/HCC) Essential (primary) hypertension Heart failure, unspecified (CMS/HCC) 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) 06/16/2024 5:17 AM EDT documented as of this encounter Visit Diagnoses Diagnosis Type 2 diabetes mellitus with diabetic chronic kidney disease (CMS/HCC) Essential (primary) hypertension Unspecified essential hypertension Heart failure, unspecified (CMS/HCC) Heart failure, unspecified 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
--- OUTSIDE RECORDS SUMMARY | 2024-06-16 11:08 | XMS_ITS | Encounter Summary ---
Author Organization [facility] Address [address] [place] [address] Phone Care Team Providers Care Gasoline Truck Crane Operator Name Role Phone Monique White MD Primary Care Provider [phone] Encounter Details Date Type Department Care Team (Late st Contact Info) Description 06/07/2021 Telephone [facility] [address] [place] [address] Sohail Penaloza MD Social History [...] with you. Please call her back at [phone] Thank you documented in this encounter Plan of Treatment Not on file documented as of this encounter Visit Diagnoses Not on filedocumented in this encounter Care Teams Gasoline Truck Crane Operator Relationship Specialty Start Date End Date Monique White MD [facility] [address] [place] PCP - General Internal Medicine 03/11/21 documented as of this encounter
--- OUTSIDE RECORDS SUMMARY | 2024-06-16 11:08 | XMS_ITS | Encounter Summary ---
Author Organization [facility] Address [address] [place] [address] Care Team Providers Care Near Eastern Archaeology Lecturer Name Role Phone Torrey Kwok MD Primary Care Provider [phone] Encounter Details Date Type Department Care Team (Late st Contact Info) Description 05/31/2024 Lab Requisition [facility] - Main Lab 299 [facility] [place] [address] Torrey Kwok MD [address] [place] [address] Type 2 diabetes mellitus with diabetic chronic [...] mmol/L LAB CHEMISTRY METHOD 06/02/2024 1:18 PM [facility] Potassium 3.7 3.5 - 5.5 mmol/L LAB CHEMISTRY METHOD 06/02/2024 1:18 PM [facility] Chloride 94(L) 96 - 110 mmol/L LAB CHEMISTRY METHOD 06/02/2024 1:18 PM [facility] CO2 27 21 - 32 mmol/L LAB CHEMISTRY METHOD 06/02/2024 1:18 PM [facility] Anion Gap 12(H) 3 - 11 LAB CHEMISTRY METHOD 06/02/2024 1:18 PM [facility] Glucose 464(HH) 70 - 100 mg/dL LAB CHEMISTRY METHOD 06/02/2024 1:18 PM [facility] BUN 34(H) 5 - 25 mg/dL LAB CHEMISTRY METHOD 06/02/2024 1:18 PM [facility] Creatinine 1.18(H) 0.50 - 1.10 mg/dL LAB CHEMISTRY METHOD 06/02/2024 1:18 PM [facility] eGFR 45(L) >=60 mL/min/1. 73m2 LAB CHEMISTRY METHOD 06/02/2024 1:18 PM [facility] Comment:Calculation based on the??Chronic Kidney Disease Epidemiology Collaboration (CKD-EPI) equation refit??without adjustment for race. BUN/Creatinine Ratio 28.8 LAB CHEMISTRY METHOD 06/02/2024 1:18 PM [facility] Calcium 9.0 8.5 - 10.5 mg/dL LAB CHEMISTRY METHOD 06/02/2024 1:18 PM [facility] Blood Venous blood specimen / Unknown Venipuncture / Unknown 06/02/2024 5:33 AM EST 06/02/2024 10:52 AM EST us Torrey Kwok MD LAB BLOOD ORDERABLES Final Resul t [facility] [address] [place] [address], [place] [phone] * (ABNORMAL) Complete blood count (06/02/2024 5:33 AM EST) WBC 9.9 4.8 - 10.8 K/mcL LAB HEMETOLOGY METHOD 06/02/2024 2:00 PM [facility] RBC 3.70(L) 3.80 - 4.80 M/mcL LAB HEMETOLOGY METHOD 06/02/2024 2:00 PM [facility] Hemoglobin 11.5 11.5 - 16.0 g/dL LAB HEMETOLOGY METHOD 06/02/2024 2:00 PM [facility] Hematocrit 37.8 35.0 - 47.0 % LAB HEMETOLOGY METHOD 06/02/2024 2:00 PM [facility] MCV 103.6(H) 79.0 - 98.0 FL LAB HEMETOLOGY METHOD 06/02/2024 2:00 PM [facility] MCH 31.5 27.0 - 32.0 pcg LAB HEMETOLOGY METHOD 06/02/2024 2:00 PM [facility] MCHC 30.4(L) 32.0 - 37.0 g/dL LAB HEMETOLOGY METHOD 06/02/2024 2:00 PM [facility] RDW 18.5(H) 11.0 - 15.0 % LAB HEMETOLOGY METHOD 06/02/2024 2:00 PM [facility] Platelets 365 130 - 400 K/mcL LAB HEMETOLOGY METHOD 06/02/2024 2:00 PM [facility] MPV 10.4 7.0 - 11.0 FL LAB HEMETOLOGY METHOD 06/02/2024 2:[address] [facility] NRBC 0.0 <1.0 % LAB HEMETOLOGY METHOD 06/02/2024 2:[address] [facility] NRBC Absolute 0.00 <0.10 K/mcL LAB HEMETOLOGY METHOD 06/02/2024 2:[address] [facility] Blood Venous blood specimen / Unknown Venipuncture / Unknown 06/02/2024 5:33 AM EST 06/02/2024 10:52 AM EST Torrey Kwok MD LAB BLOOD ORDERABLES Final Resul t [facility] [address] [place] [address], documented in this encounter Visit Diagnoses Diagnosis Type 2 diabetes mellitus with diabetic chronic kidney disease (CMS/HCC) Essential (primary) hypertension Unspecified essential hypertension Heart failure, unspecified (CMS/HCC) Heart failure, unspecified 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) documented in this encounter Care Teams Near Eastern Archaeology Lecturer Relationship Specialty Start Date End Date Torrey Kwok MD [address] [place], [place] [id number] [place] [address] PCP - General Geriatric Medicine 04/25/24 documented as of this encounter
--- OUTSIDE RECORDS SUMMARY | 2024-06-16 11:08 | XMS_ITS | Encounter Summary ---
Author Organization [facility] Address [address] [place] [address] Care Team Providers Care Bicycle Repairer Name Role Phone Torrey Kwok MD Primary Care Provider [phone] Encounter Details Date Type Department Care Team (Late st Contact Info) Description 06/07/2024 Lab Requisition [facility] - Main Lab [address] [facility] [place] [address] Torrey Kwok MD [address] [place] [address] Type 2 diabetes mellitus with diabetic chronic [...] mmol/L LAB CHEMISTRY METHOD 06/09/2024 1:51 PM [facility] Potassium 3.8 3.5 - 5.5 mmol/L LAB CHEMISTRY METHOD 06/09/2024 1:51 PM [facility] Chloride 99 96 - 110 mmol/L LAB CHEMISTRY METHOD 06/09/2024 1:51 PM [facility] CO2 28 21 - 32 mmol/L LAB CHEMISTRY METHOD 06/09/2024 1:51 PM [facility] Anion Gap 10 3 - 11 LAB CHEMISTRY METHOD 06/09/2024 1:51 PM [facility] Glucose 135(H) 70 - 100 mg/dL LAB CHEMISTRY METHOD 06/09/2024 1:51 PM [facility] BUN 41(H) 5 - 25 mg/dL LAB CHEMISTRY METHOD 06/09/2024 1:51 PM [facility] Creatinine 0.99 0.50 - 1.10 mg/dL LAB CHEMISTRY METHOD 06/09/2024 1:51 PM [facility] eGFR 55(L) >=60 mL/min/1. 73m2 LAB CHEMISTRY METHOD 06/09/2024 1:51 PM [facility] Comment:Calculation based on the??Chronic Kidney Disease Epidemiology Collaboration (CKD-EPI) equation refit??without adjustment for race. BUN/Creatinine Ratio 41.4 LAB CHEMISTRY METHOD 06/09/2024 1:51 PM [facility] Calcium 9.2 8.5 - 10.5 mg/dL LAB CHEMISTRY METHOD 06/09/2024 1:51 PM [facility] Blood Venous blood specimen / Unknown Venipuncture / Unknown 06/09/2024 6:45 AM EST 06/09/2024 11:22 AM EST us Torrey Kwok MD LAB BLOOD ORDERABLES Final Resul t [facility] [address] [place] [address], [place] [phone] * (ABNORMAL) Complete blood count (06/09/2024 6:45 AM EST) WBC 9.1 4.8 - 10.8 K/mcL LAB HEMETOLOGY METHOD 06/09/2024 1:30 PM [facility] RBC 3.50(L) 3.80 - 4.80 M/mcL LAB HEMETOLOGY METHOD 06/09/2024 1:30 PM [facility] Hemoglobin 11.2(L) 11.5 - 16.0 g/dL LAB HEMETOLOGY METHOD 06/09/2024 1:30 PM [facility] Hematocrit 35.6 35.0 - 47.0 % LAB HEMETOLOGY METHOD 06/09/2024 1:30 PM [facility] MCV 101.1(H) 79.0 - 98.0 FL LAB HEMETOLOGY METHOD 06/09/2024 1:30 PM [facility] MCH 31.8 27.0 - 32.0 pcg LAB HEMETOLOGY METHOD 06/09/2024 1:30 PM [facility] MCHC 31.5(L) 32.0 - 37.0 g/dL LAB HEMETOLOGY METHOD 06/09/2024 1:30 PM [facility] RDW 18.6(H) 11.0 - 15.0 % LAB HEMETOLOGY METHOD 06/09/2024 1:30 PM [facility] Platelets 346 130 - 400 K/mcL LAB HEMETOLOGY METHOD 06/09/2024 1:30 PM [facility] MPV 10.5 7.0 - 11.0 FL LAB HEMETOLOGY METHOD 06/09/2024 1:30 PM EST [facility] NRBC 0.0 <1.0 % LAB HEMETOLOGY METHOD 06/09/2024 1:30 PM EST [facility] NRBC Absolute 0.00 <0.10 K/mcL LAB HEMETOLOGY METHOD 06/09/2024 1:30 PM EST [facility] Blood Venous blood specimen / Unknown Venipuncture / Unknown 06/09/2024 6:45 AM EST 06/09/2024 11:22 AM EST us Torrey Kwok MD LAB BLOOD ORDERABLES Final Resul t [facility] [address] [place] [address], documented in this encounter Visit Diagnoses Diagnosis Type 2 diabetes mellitus with diabetic chronic kidney disease (CMS/HCC) Essential (primary) hypertension Unspecified essential hypertension Heart failure, unspecified (CMS/HCC) Heart failure, unspecified 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
--- OUTSIDE RECORDS SUMMARY | 2024-06-16 11:08 | XMS_ITS | Encounter Summary ---
Author Organization [facility] Address [address] [place] [address] Care Team Providers Care Roastmaster Name Role Phone Torrey Kwok MD Primary Care Provider [phone] Encounter Details Date Type Department Care Team (Late st Contact Info) Description 04/30/2024 Lab Requisition [facility] - Main Lab [address] [facility] [place] [address] Torrey Kwok MD [address] [place] [address] Type 2 diabetes mellitus without complications (CMS/HCC) [...] 04/30/2024 2:51 PM EST [facility] RBC 3.40(L) 3.80 - 4.80 M/mcL LAB HEMETOLOGY METHOD 04/30/2024 2:51 PM EST [facility] Hemoglobin 10.7(L) 11.5 - 16.0 g/dL LAB HEMETOLOGY METHOD 04/30/2024 2:51 PM EST [facility] Hematocrit 34.7(L) 35.0 - 47.0 % LAB HEMETOLOGY METHOD 04/30/2024 2:51 PM [facility] MCV 101.5(H) 79.0 - 98.0 FL LAB HEMETOLOGY METHOD 04/30/2024 2:51 PM EST [facility] MCH 31.3 27.0 - 32.0 pcg LAB HEMETOLOGY METHOD 04/30/2024 2:51 PM [facility] MCHC 30.8(L) 32.0 - 37.0 g/dL LAB HEMETOLOGY METHOD 04/30/2024 2:51 PM [facility] RDW 17.1(H) 11.0 - 15.0 % LAB HEMETOLOGY METHOD 04/30/2024 2:51 PM [facility] Platelets 391 130 - 400 K/mcL LAB HEMETOLOGY METHOD 04/30/2024 2:51 PM [facility] MPV 10.8 7.0 - 11.0 FL LAB HEMETOLOGY METHOD 04/30/2024 2:51 PM [facility] NRBC 0.5 <1.0 % LAB HEMETOLOGY METHOD 04/30/2024 2:51 PM [facility] NRBC Absolute 0.03 <0.10 K/mcL LAB HEMETOLOGY METHOD 04/30/2024 2:51 PM [facility] Blood Venous blood specimen / Unknown Venipuncture / Unknown 04/30/2024 6:31 AM EST 04/30/2024 1:53 PM EST us Torrey Kwok MD LAB BLOOD ORDERABLES Final Resul t [facility] [address] [place] [address], documented in this encounter Visit Diagnoses Diagnosis Type 2 diabetes mellitus without complications (CMS/HCC) documented in this encounter Care Teams Roastmaster Relationship Specialty Start Date End Date Torrey Kwok MD [address] [place] [address] [address] [place] [address] PCP - General Geriatric Medicine 04/25/24 documented as of this encounter
--- OUTSIDE RECORDS SUMMARY | 2024-06-16 11:08 | XMS_ITS ---
Author Organization [facility] Address [address] [place] [address] Care Team Providers Care Tack Driller Name Role Phone Monique White MD Primary Care Provider Yane Epps Jr, John Unavailable REASON FOR VISIT refill omeprazole Medications Medication SIG (Take, Route, Frequency, Duration) Notes Start Date End Date Status Omeprazole 20 TAKE 1 CAPSULE BY MO UTH TWICE DAILY for 90 days Active Encounters Encounter Location Date Provider Diagnosis [facility] [address] [place] [phone] 07/09/2023 John Epps Jr Plan Of Treatment Medication Medication Name Sig Start Date Stop Date Notes Omeprazole 20 TAKE 1 CAPSULE BY MO UTH TWICE DAILY for 90 days Progress Notes * CHARLY SCHWARTZ RDOB:[birth year] (87 yo F)Acc No.[id number]:07/09/2023 Patient:?CHARLY SCHWARTZ :1935???Age:87 Y???Sex:Female Address:[place] [address] * Refills? Refill Omeprazole Capsule Delayed Release, 20, 180, TAKE 1 CAPSULE BY MOUTH TWICE DAILY, 90 days, Refills=3 * true * Date:? Generated for Awilda diggs/Lee/eTransmitting on:?06/16/2024 11:08 AM EDT
--- OUTSIDE RECORDS SUMMARY | 2024-06-16 11:08 | XMS_ITS | Encounter Summary ---
Author Organization [facility] Address [address] [place] [address] Care Team Providers Care Presbyterian Clergy Name Role Phone Torrey Kwok MD Primary Care Provider [phone] Encounter Details Date Type Department Care Team (Late st Contact Info) Description 06/07/2024 Lab Requisition [facility] - Main Lab [address] [facility] [place] [address] Torrey Kwok MD [address] [place] [address] Heart failure, unspecified (CMS/HCC); Type 2 diabetes [...] diabetes mellitus with diabetic chronic kidney disease ([facility]/HCC) Chronic kidney disease, stage 3 unspecified (CMS/HCC) Vitamin D deficiency, unspecified Essential (primary) hypertension documented in this encounter Results * Vitamin D 25 hydroxy (06/07/2024 6:36 AM EST) [facility] Vit D, 25-Hydroxy 41.4 30.0 - 80.0 ng/mL LAB CHEMISTRY METHOD 06/07/2024 1:29 PM EST [facility] Blood Venous blood specimen / Unknown Venipuncture / Unknown 06/07/2024 6:36 AM EST 06/07/2024 9:58 AM EST Torrey Kwok MD LAB BLOOD ORDERABLES Final Resul t [facility] [address] [place] [address], [place] [phone] * Folate (06/07/2024 6:36 AM EST) [facility] Folate 9.8 2.8 - 17.0 ng/ml LAB CHEMISTRY METHOD 06/07/2024 12:13 PM EST [facility] Blood Venous blood specimen / Unknown Venipuncture / Unknown 06/07/2024 6:36 AM EST 06/07/2024 9:58 AM EST us Torrey Kwok MD LAB BLOOD ORDERABLES Final Resul t [facility] [address] [place] [address], [place] [phone] * (ABNORMAL) Vitamin B12 (06/07/2024 6:36 AM EST) [facility] Vitamin B-12 1,072(H) 250 - 900 pcg/mL LAB CHEMISTRY METHOD 06/07/2024 12:13 PM EST [facility] Blood Venous blood specimen / Unknown Venipuncture / Unknown 06/07/2024 6:36 AM EST 06/07/2024 9:58 AM EST Torrey Kwok MD LAB BLOOD ORDERABLES Final Resul t [facility] [address] [place] [address], documented in this encounter Visit Diagnoses Diagnosis Heart failure, unspecified (CMS/HCC) Heart failure, unspecified Type 2 diabetes mellitus with diabetic chronic kidney disease (CMS/HCC) Chronic kidney disease, stage 3 unspecified (CMS/HCC) Vitamin D deficiency, unspecified Essential (primary) hypertension Unspecified essential hypertension documented in this encounter Care Teams Presbyterian Clergy Relationship Specialty Start Date End Date Torrey Kwok MD [address] [place] [address] [address] [place] [address] PCP - General Geriatric Medicine 04/25/24 documented as of this encounter
--- OUTSIDE RECORDS SUMMARY | 2024-06-16 11:08 | XMS_ITS | Encounter Summary ---
Author Organization [facility] Address [address] [place] [address] Care Team Providers Care Air Quality Engineer Name Role Phone Torrey Kwok MD Primary Care Provider [phone] Encounter Details Date Type Department Care Team (Late st Contact Info) Description 05/30/2024 Lab Requisition [facility] - Main Lab [address] [place] [address] Torrey Kwok MD [address] [place] [address] Essential (primary) hypertension; Type 2 diabetes mellitus [...] LAB CHEMISTRY METHOD 05/30/2024 5:00 PM EST [facility] Potassium 3.6 3.5 - 5.5 mmol/L LAB CHEMISTRY METHOD 05/30/2024 5:00 PM [facility] Chloride 104 96 - 110 mmol/L LAB CHEMISTRY METHOD 05/30/2024 5:00 PM [facility] CO2 26 21 - 32 mmol/L LAB CHEMISTRY METHOD 05/30/2024 5:00 PM [facility] Anion Gap 9 3 - 11 LAB CHEMISTRY METHOD 05/30/2024 5:00 PM [facility] Glucose 81 70 - 100 mg/dL LAB CHEMISTRY METHOD 05/30/2024 5:00 PM [facility] BUN 31(H) 5 - 25 mg/dL LAB CHEMISTRY METHOD 05/30/2024 5:00 PM [facility] Creatinine 1.11(H) 0.50 - 1.10 mg/dL LAB CHEMISTRY METHOD 05/30/2024 5:00 PM [facility] eGFR 48(L) >=60 mL/min/1. 73m2 LAB CHEMISTRY METHOD 05/30/2024 5:00 PM [facility] Comment:Calculation based on the??Chronic Kidney Disease Epidemiology Collaboration (CKD-EPI) equation refit??without adjustment for race. BUN/Creatinine Ratio 27.9 LAB CHEMISTRY METHOD 05/30/2024 5:00 PM [facility] Calcium 8.8 8.5 - 10.5 mg/dL LAB CHEMISTRY METHOD 05/30/2024 5:00 PM [facility] Blood Venous blood specimen / Unknown Venipuncture / Unknown 05/30/2024 3:45 PM EST 05/30/2024 4:21 PM EST us Torrey Kwok MD LAB BLOOD ORDERABLES Final Resul t [facility] [address] [place] [address], [place] [phone] * (ABNORMAL) Complete blood count (05/30/2024 3:45 PM EST) [facility] WBC 7.1 4.8 - 10.8 K/mcL LAB HEMETOLOGY METHOD 05/30/2024 4:35 PM [facility] RBC 3.20(L) 3.80 - 4.80 M/mcL LAB HEMETOLOGY METHOD 05/30/2024 4:35 PM [facility] Hemoglobin 10.3(L) 11.5 - 16.0 g/dL LAB HEMETOLOGY METHOD 05/30/2024 4:35 PM [facility] Hematocrit 32.0(L) 35.0 - 47.0 % LAB HEMETOLOGY METHOD 05/30/2024 4:35 PM [facility] MCV 100.0(H) 79.0 - 98.0 FL LAB HEMETOLOGY METHOD 05/30/2024 4:35 PM [facility] MCH 32.2(H) 27.0 - 32.0 pcg LAB HEMETOLOGY METHOD 05/30/2024 4:35 PM [facility] MCHC 32.2 32.0 - 37.0 g/dL LAB HEMETOLOGY METHOD 05/30/2024 4:35 PM [facility] RDW 18.3(H) 11.0 - 15.0 % LAB HEMETOLOGY METHOD 05/30/2024 4:35 PM [facility] Platelets 319 130 - 400 K/mcL LAB HEMETOLOGY METHOD 05/30/2024 4:35 PM [facility] MPV 10.1 7.0 - 11.0 FL LAB HEMETOLOGY METHOD 05/30/2024 4:35 PM [facility] NRBC 0.0 <1.0 % LAB HEMETOLOGY METHOD 05/30/2024 4:35 PM [facility] NRBC Absolute 0.00 <0.10 K/mcL LAB HEMETOLOGY METHOD 05/30/2024 4:35 PM EST [facility] Blood Venous blood specimen / Unknown Venipuncture / Unknown 05/30/2024 3:45 PM EST 05/30/2024 4:21 PM EST Torrey Kwok MD LAB BLOOD ORDERABLES Final Resul t [facility] [address] [place] [address], documented in this encounter Visit Diagnoses Diagnosis Essential (primary) hypertension Unspecified essential hypertension Type 2 diabetes mellitus without complications (CMS/HCC) documented in this encounter Care Teams Air Quality Engineer Relationship Specialty Start Date End Date Torrey Kwok MD [address] [place] [address] [address] [place] [address] PCP - General Geriatric Medicine 04/25/24 documented as of this encounter
--- OUTSIDE RECORDS SUMMARY | 2024-06-16 11:08 | XMS_ITS ---
Author Organization [facility] Address [address] [facility] [place] [address] Care Team Providers Care Wrapping Machine Tender Name Role Phone Monique White Primary Care Provider Arturo Brown Unavailable [phone] Allergies Allergen (clinical drug ingredient) Drug/Non Drug [...] Ordered Date Performed Result Body Sit e 95087-EFFDAPE NAIL, 6 OR MORE 02/05/2024 N/A 25102-CRYY SKIN LESIONS, 2 TO 4 02/05/2024 N/A Encounters Encounter Location Date Provider Diagnosis [facility] [address] [place] [address] 02/05/2024 Arturo Simon Type 1 diabetes mellitus [...] INSTRUCTIONS.pdf) Pending Test Test Name Order Date 01858-[id number] NAIL, 6 OR MORE 02/05/2024 54903-DKPP SKIN LESIONS, 2 TO 4 02/05/20 24 Next Appt Details Follow Up: prn, Reason: Provider Name:Arturo Simon , 08/15/2024 10:15:00 AM, [address] [place], [address], Procedure Notes * Category Sub-Category Detail Notes Debride Nail 6-10 Nail debridement Performance o f this nail treatment by a nonprofessional would put this patients foot and overall health at risk. Therefore, nail debridement was performed extensively to reduce/remove overall nail length, girth, thickness, subungual debris, and necrotic tissue, by manual and/or electrical means through the use of a nail nipper and/or dremel-type pulp grinder feeder, to a more viable healthy nail plate or bed tissue 6-10. Silver nitrate used for any petechial bleeding as necessary. Definitive antifungal treatment options have been reviewed and discussed with the patient. The patient chooses, no pharmaceutical tx - 04406 Keratoma Treatment Parring or Cutting o f Benign Hyperkeratotic Lesion(s) (-56) 2-4 Lesions - The Benign hyperkeratotic lesions, as described above were pared, and/or cut utilizing a sterile 15 blade, tissue nippers, and/or dremel - 85133 Progress Notes * Gerri SCHWARTZ RDOB:[birth year] (88 yo F)Acc No.[id number]:02/05/2024 Progress Note Patient:?Gerri SCHWARTZ R Provider:?Arturo Simon DPM :1935???Age:88 Y???Sex:Female D ate:02/05/2024 Address: [facility] [id number] Pcp:Monique White Subjective: * Chief Complaints: * [...] Hospitalization/Major Diagno stic Procedure:?[facility] 04[facility]2015[facility] / for medication 04/2015[facility]: A-fib 12/2015[facility] [place] [place]- UTI 11/16/23 * Family History:?Mother: dece ased, [...] bike. ?Marital status: . 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 * Medications:?TakingToujeo Ma x SoloStar 300 UNIT/ML [...] use of a nail nipper and/or dremel-type pulp grinder feeder, to a more viable healthy nail plate or bed tissue 6-10. Silver nitrate used for any petechial bleeding as necessary. Definitive antifungal treatment options have been reviewed and discussed with the patient. The patient chooses, no pharmaceutical tx - 46897.?Keratoma Treatment:?Parring or Cutting of Benign Hyperkeratotic Lesion(s)?(-56) 2-4 Lesions - The Benign hyperkeratotic lesions, as described above were pared, and/or cut utilizing a sterile 15 blade, tissue nippers, and/or dremel - 94677.? * Procedure Codes:?60995 DEBRI DE NAIL, 6 OR MORE, Modifiers: XS 91719 TRIM SKIN LESIONS, 2 TO 4, Modifiers: [...] Simon DPM Date:?2023 Generated for Awilda diggs/Lee/Nilay on:?06/16/2024 11:08 AM EDT History and Physical Notes * HPI (History [...]
--- OUTSIDE RECORDS SUMMARY | 2024-06-16 11:08 | XMS_ITS | Encounter Summary ---
Author Organization [facility] Address [address] [place] [address] Care Team Providers Care Frontload Driver Name Role Phone Torrey Kwok MD Primary Care Provider [phone] Encounter Details Date Type Department Care Team (Late st Contact Info) Description 05/16/2024 Lab Requisition [facility] - Main Lab [address] [facility] [place] [address] Torrey Kwok MD [address] [place] [address] Heart failure, unspecified (CMS/HCC); Essential (primary) hypertension; [...] mmol/L LAB CHEMISTRY METHOD 05/19/2024 2:03 PM [facility] Potassium 3.7 3.5 - 5.5 mmol/L LAB CHEMISTRY METHOD 05/19/2024 2:03 PM [facility] Chloride 102 96 - 110 mmol/L LAB CHEMISTRY METHOD 05/19/2024 2:03 PM [facility] CO2 25 21 - 32 mmol/L LAB CHEMISTRY METHOD 05/19/2024 2:03 PM [facility] Anion Gap 10 3 - 11 LAB CHEMISTRY METHOD 05/19/2024 2:03 PM [facility] Glucose 92 70 - 100 mg/dL LAB CHEMISTRY METHOD 05/19/2024 2:03 PM [facility] BUN 23 5 - 25 mg/dL LAB CHEMISTRY METHOD 05/19/2024 2:03 PM [facility] Creatinine 0.97 0.50 - 1.10 mg/dL LAB CHEMISTRY METHOD 05/19/2024 2:03 PM [facility] eGFR 57(L) >=60 mL/min/1. 73m2 LAB CHEMISTRY METHOD 05/19/2024 2:03 PM [facility] Comment:Calculation based on the??Chronic Kidney Disease Epidemiology Collaboration (CKD-EPI) equation refit??without adjustment for race. BUN/Creatinine Ratio 23.7 LAB CHEMISTRY METHOD 05/19/2024 2:03 PM [facility] Calcium 8.8 8.5 - 10.5 mg/dL LAB CHEMISTRY METHOD 05/19/2024 2:03 PM [facility] Blood Venous blood specimen / Unknown Venipuncture / Unknown 05/19/2024 7:33 AM EST 05/19/2024 12:17 PM EST us Torrey Kwok MD LAB BLOOD ORDERABLES Final Resul t [facility] [address] [place] [address], * (ABNORMAL) Complete blood count (05/19/2024 7:33 AM EST) [facility] WBC 5.4 4.8 - 10.8 K/mcL LAB HEMETOLOGY METHOD 05/19/2024 1:26 PM [facility] RBC 3.50(L) 3.80 - 4.80 M/mcL LAB HEMETOLOGY METHOD 05/19/2024 1:26 PM [facility] Hemoglobin 11.1(L) 11.5 - 16.0 g/dL LAB HEMETOLOGY METHOD 05/19/2024 1:26 PM [facility] Hematocrit 35.7 35.0 - 47.0 % LAB HEMETOLOGY METHOD 05/19/2024 1:26 PM [facility] MCV 103.5(H) 79.0 - 98.0 FL LAB HEMETOLOGY METHOD 05/19/2024 1:26 PM [facility] MCH 32.2(H) 27.0 - 32.0 pcg LAB HEMETOLOGY METHOD 05/19/2024 1:26 PM [facility] MCHC 31.1(L) 32.0 - 37.0 g/dL LAB HEMETOLOGY METHOD 05/19/2024 1:26 PM [facility] RDW 20.0(H) 11.0 - 15.0 % LAB HEMETOLOGY METHOD 05/19/2024 1:26 PM [facility] Platelets 344 130 - 400 K/mcL LAB HEMETOLOGY METHOD 05/19/2024 1:26 PM [facility] MPV 10.8 7.0 - 11.0 FL LAB HEMETOLOGY METHOD 05/19/2024 1:26 PM [facility] NRBC 0.0 <1.0 % LAB HEMETOLOGY METHOD 05/19/2024 1:26 PM EST [facility] NRBC Absolute 0.00 <0.10 K/mcL LAB HEMETOLOGY METHOD 05/19/2024 1:26 PM EST [facility] Blood Venous blood specimen / Unknown Venipuncture / Unknown 05/19/2024 7:33 AM EST 05/19/2024 12:17 PM EST us Torrey Kwok MD LAB BLOOD ORDERABLES Final Resul t [facility] [address] [place] [address], documented in this encounter Visit Diagnoses Diagnosis Heart failure, unspecified (CMS/HCC) Heart failure, unspecified Essential (primary) hypertension Unspecified essential hypertension Type 2 diabetes mellitus with diabetic chronic kidney disease (CMS/HCC) documented in this encounter Care Teams Frontload Driver Relationship Specialty Start Date End Date Torrey Kwok MD [address] [place] [address] [address] [place] [address] PCP - General Geriatric Medicine 04/25/24 documented as of this encounter
--- OUTSIDE RECORDS SUMMARY | 2024-06-16 11:08 | XMS_ITS | Encounter Summary ---
Author Organization [facility] Address [address] [place] [address] Care Team Providers Care Flatbed Press Operator Name Role Phone Torrey Kwok MD Primary Care Provider [phone] Encounter Details Date Type Department Care Team (Late st Contact Info) Description 04/29/2024 Lab Requisition [facility] - Main Lab [address] [facility] [place] [address] Torrey Kwok MD [address] [place] [address] Dysuria Social History Tobacco Use Types Packs/Day [...] Escherichia coli(A) ANDRE 05/01/2024 11:04 AM EST [facility] Urine Urine specimen from urinary [...] MICROBIOLOGY - GENERAL ORDER GENET Final Result [facility] [address] [place] [address], [place] [phone] * Frost urine culture tube (04/28/2024 12:15 PM EST) Extra Tube Hold for add-ons. 04/29/2024 11:01 AM EST [facility] Comment:Auto resulted. Urine Urine specimen obtained by clean catch procedure / Unknown 04/28/2024 12:15 PM EST 04/29/2024 9:53 AM EST Torrey Kwok MD LAB URINE ORDERABLES Final Resul t [facility] [address] [place] [address], * (ABNORMAL) Urinalysis with reflex microscopic and culture (04/28/2024 12:15 PM EST) Specific [place] Urine 1.021 1.003 - 1.030 LAB URINALYSIS - AUTOMATED METHOD 04/29/2024 11:05 AM [facility] pH, Urine 5.5 5.0 - 8.0 pH LAB URINALYSIS - AUTOMATED METHOD 04/29/2024 11:05 AM [facility] Leukocytes, Urine Trace(A) Negative LAB URINALYSIS - AUTOMATED METHOD 04/29/2024 11:05 AM [facility] Nitrite, Urine Negative Negative LAB URINALYSIS - AUTOMATED METHOD 04/29/2024 11:05 AM [facility] Protein, Urine Trace <=Trace mg/dL LAB URINALYSIS - AUTOMATED METHOD 04/29/2024 11:05 AM [facility] Glucose, Urine >=1000(A) Negative mg/dL LAB URINALYSIS - AUTOMATED METHOD 04/29/2024 11:05 AM [facility] Ketones, Urine 15(A) Negative mg/dL LAB URINALYSIS - AUTOMATED METHOD 04/29/2024 11:05 AM [facility] Urobilinogen , Urine 0.2 0.2 - 1.0 mg/dL LAB URINALYSIS - AUTOMATED METHOD 04/29/2024 11:05 AM [facility] Bilirubin, Urine Negative Negative LAB URINALYSIS - AUTOMATED METHOD 04/29/2024 11:05 AM [facility] Blood, Urine Negative Negative LAB URINALYSIS - AUTOMATED METHOD 04/29/2024 11:05 AM [facility] RBC, Urine 0.8 0 - 4 /HPF LAB URINALYSIS - AUTOMATED METHOD 04/29/2024 11:05 AM [facility] WBC, Urine 12.6(H) 0 - 4 /HPF LAB URINALYSIS - AUTOMATED METHOD 04/29/2024 11:05 AM [facility] Squamous Epithelial, Urine 10 0 - 60 /LPF LAB URINALYSIS - AUTOMATED METHOD 04/29/2024 11:05 AM [facility] Bacteria, Urine Many(A) Negative /HPF LAB URINALYSIS - AUTOMATED METHOD 04/29/2024 11:05 AM [facility] Hyaline Casts, Urine 0.4 0 - 3 /LPF LAB URINALYSIS - AUTOMATED METHOD 04/29/2024 11:05 AM [facility] Urine Urine specimen from urinary conduit / Unknown Non-blood Collection / Unknown 04/28/2024 12:15 PM EST 04/29/2024 9:53 AM EST Torrey Kwok MD LAB URINE ORDERABLES Final Resul t [facility] [address] [place] [address], documented in this encounter Visit Diagnoses Diagnosis Dysuria documented in this encounter Care Teams Flatbed Press Operator Relationship Specialty Start Date End Date Torrey Kwok MD [address] [place] [address] [address] [place] [address] PCP - General Geriatric Medicine 04/25/24 documented as of this encounter
--- OUTSIDE RECORDS SUMMARY | 2024-06-16 11:09 | XMS_ITS | Encounter Summary ---
Author Organization [facility] Address [address] [place] [address] Care Team Providers Care Aix System Administrator Name Role Phone Torrey Kwok MD Primary Care Provider [phone] Encounter Details Date Type Department Care Team (Late st Contact Info) Description 05/09/2024 Lab Requisition [facility] - Main Lab 299 [facility] [place] [address] Torrey Kwok MD [address] [place], [place] [id number] Type 2 diabetes mellitus with unspecified diabetic [...] (CMS/HCC) documented in this encounter Care Teams Aix System Administrator Relationship Specialty Start Date End Date Torrey Kwok MD [address] [place], [place] [id number] PCP - General Geriatric Medicine 04/25/24 documented as of this encounter
--- OUTSIDE RECORDS SUMMARY | 2024-06-16 11:09 | XMS_ITS | Encounter Summary ---
Author Organization [facility] Address [address] [place] [address] Care Team Providers Care Medical Science Liaison Name Role Phone Torrey Kwok MD Primary Care Provider [phone] Encounter Details Date Type Department Care Team (Late st Contact Info) Description 05/05/2024 Lab Requisition [facility] - Main Lab [address] [facility] [place] [address] Torrey Kwok MD [address] [place] [address] Chronic kidney disease, stage 3 unspecified (CMS/HCC); [...] LAB CHEMISTRY METHOD 05/05/2024 2:05 PM EST [facility] Potassium 5.0 3.5 - 5.5 mmol/L LAB CHEMISTRY METHOD 05/05/2024 2:05 PM EST [facility] Comment:Hemolysis present Chloride 99 [...] MD LAB BLOOD ORDERABLES Final Resul t [facility] [address] [place] [address], documented in this encounter Visit Diagnoses Diagnosis Chronic kidney disease, stage 3 unspecified (CMS/HCC) Type 2 diabetes mellitus with diabetic chronic kidney disease (CMS/HCC) documented in this encounter Care Teams Medical Science Liaison Relationship Specialty Start Date End Date Torrey Kwok MD [address] [place] [address] [address] [place] [address] PCP - General Geriatric Medicine 04/25/24 documented as of this encounter
--- OUTSIDE RECORDS SUMMARY | 2024-06-16 11:09 | XMS_ITS | Patient Health Record ---
Author Organization [facility] Address [address] [facility] [place] [address] Care Team Providers Care Financial Services Manager Name Role Phone Monique White Primary Care Provider Arturo Brown Unavailable [phone] Antonio Lewis Unavailable [phone] Allergies Allergen (clinical drug ingredient) Drug/Non Drug [...] Problem Acquired hammer toe of right foot (7915575543757754 ) Other hammer toe(s) (acquired), right foot (M20.41) Active confirmed Problem Acquired hammer toe of left foot (3816846799446106 ) Other hammer toe(s) (acquired), left foot (M20.42) Active confirmed Problem Polyneuropathy due to diabetes mellitus type I (062576786) Type 1 diabetes mellitus with diabetic polyneuropathy (E10.42) Active confirmed Vital Signs Blood pressure diastolic 84 mm Hg 12/04/2023 Height 4 ft 10 in in 02/05/2024 Blood pressure systolic 128 mm Hg 12/04/2023 Weight 129 lbs 02/05/2024 BMI 26.96 kg/m2 02/05/2024 Procedures Procedure Date Ordered Date Performed Result Body Sit e 50551-Hjvtnhjlu, Toes 06/28/2023 N/A 16913-LWHCSMU NAIL, 6 OR MORE 09/21/2023 N/A 08799-Rpfnqvtg Plate 09/21/2023 N/A 70717-EEVP SKIN LESIONS, 2 TO 4 09/21/2023 N/A 21983-ELIFFEX NAIL, 6 OR MORE 12/04/2023 N/A 79348-CDUO SKIN LESIONS, 2 TO 4 12/04/2023 N/A 67062-DXAWJZD NAIL, 6 OR MORE 02/05/2024 N/A 14140-ZTGH SKIN LESIONS, 2 TO 4 02/05/2024 N/A Encounters Encounter Location Date Provider Diagnosis [address] [address] 06/28/2023 Antonio Lewis Type 1 diabetes mellitus with diabetic polyneuropathy E10.42 ; Closed fracture of right foot, initial encounter S92.901A ; Pain in right foot M79.671 and Closed nondisplaced fracture of middle phalanx of lesser toe of right foot, initial encounter S92.524A [address] [address] 09/21/2023 Arturo Simon Type 1 diabetes mellitus with diabetic polyneuropathy E10.42 ; Tinea unguium B35.1 and Ingrown nail L60.[address] [address] 12/04/2023 Arturo Simon Type 1 diabetes mellitus with diabetic polyneuropathy E10.42 and Tinea unguium B35.[address] [address] 02/05/2024 Arturo Simon Type 1 diabetes mellitus with diabetic polyneuropathy E10.42 ; Onychomycosis B35.1 ; Other hammer toe(s) (acquired), right foot M20.41 and Other hammer toe(s) (acquired), left foot M20.[address] [address] 08/01/2023 Arturo Simon [address] [address] 05/05/2024 Arturo Simon Assessments Encounter Date Diagnosis [...] X ray : Foot, right 3V 06/28/2023 23013-XVYPMBY NAIL, 6 OR MORE 05/22/2023 85821-SQLUZCR NAIL, 6 OR MORE 12/12/2022 18328-BDQMGLU NAIL, 6 OR MORE 03/06/2023 60971-XIAAPLM NAIL, 6 OR MORE 01/10/2022 14744-AVAKQJU NAIL, 6 OR MORE 04/18/2022 35353-DIWSHYK NAIL, 6 OR MORE 07/11/2022 28123-RAHMKMI NAIL, 6 OR MORE 10/03/2022 60330-AXCVBZS NAIL, 6 OR MORE 09/21/2023 03316-TCQOVBP NAIL, 6 OR MORE 12/04/2023 09046-UTQTLEL NAIL, 6 OR MORE 02/05/2024 27909-ILOWFBN NAIL, 6 OR MORE 07/10/2017 00469-WKTZNNJ NAIL, 6 OR MORE 10/09/2017 43071-SLNOCGB NAIL, 6 OR MORE 01/08/2018 71550-ZHBJQWT NAIL, 6 OR MORE 04/30/2018 50556-WGBHAMK NAIL, 6 OR MORE 07/30/2018 01633-PMOAPWQ NAIL, 6 OR MORE 10/29/2018 33283-UBSTEOC NAIL, 6 OR MORE 02/04/2019 28866-GWCBPFI NAIL, 6 OR MORE 05/13/2019 86681-ZGYIHRI NAIL, 6 OR MORE 08/12/2019 31170-TJLWLRJ NAIL, 6 OR MORE 11/11/2019 91301-IEXYTUD NAIL, 6 OR MORE 02/17/2020 22840-LDNDXIL NAIL, 6 OR MORE 05/25/2020 09997-GWTFHBL NAIL, 6 OR MORE 08/24/2020 57019-GCJWIDH NAIL, 6 OR MORE 11/23/2020 62670-PFIVHRK NAIL, 6 OR MORE 02/22/2021 44486-BKCASRP NAIL, 6 OR MORE 05/24/2021 09894-YBJXVKF NAIL, 6 OR MORE 10/11/2021 76310-WMGJMHT NAIL, 6 OR MORE 10/06/2014 91333-XYTTLHT NAIL, 6 OR MORE 06/10/2013 39456-UBBWSDV NAIL, 6 OR MORE 03/17/2014 44247-WGIMYBK NAIL, 6 OR MORE 06/23/2014 38502-WDFCLGA NAIL, 6 OR MORE 01/05/2015 54180-DAPKMCN NAIL, 6 OR MORE 04/20/2015 97495-HVFERLB NAIL, 6 OR MORE 07/20/2015 53019-GQWWRIE NAIL, 6 OR MORE 10/26/2015 18379-TZHUHLT NAIL, 6 OR MORE 01/25/2016 18866-AAXFAZF NAIL, 6 OR MORE 05/23/2016 91205-EMEXAUL NAIL, 6 OR MORE 08/25/2016 52867-ZWGSYWU NAIL, 6 OR MORE 12/05/2016 84504-EWIDFKP NAIL, 6 OR MORE 03/06/2017 08789-LVMYYGO NAIL, 6 OR MORE 12/27/2010 18038-WTAOBGJ NAIL, 6 OR MORE 03/21/2011 14239-XYXDVOR NAIL, 6 OR MORE 06/13/2011 93274-VOGTCMK NAIL, 6 OR MORE 09/12/2011 89783-EZRZDSP NAIL, 6 OR MORE 12/19/2011 41662-WIZXVTA NAIL, 6 OR MORE 03/05/2012 36463-SETPTVD NAIL, 6 OR MORE 05/31/2012 81394-FDLICNV NAIL, 6 OR MORE 08/27/2012 02052-VNMJYYO NAIL, 6 OR MORE 12/10/2012 67174-BKPLUZF NAIL, 6 OR MORE 03/11/2013 97680-QJFEPYP NAIL, 6 OR MORE 09/16/2013 99220-VYWAINI NAIL, 6 OR MORE 01/06/2014 37179-Kmnrcogp Plate 01/06/2014 95459-Cvilzguh Plate 09/16/2013 63812-Idtkffgn Plate 05/31/2012 23652-Tudrnvbt Plate 06/13/2011 92798-Iqcajhvi Plate 03/21/2011 75821-Pgrzpnlz Plate 12/05/2016 21363-Vuiqxxxb Plate 07/10/2017 80324-Wixgakbc Plate 07/20/2015 86105-Qwxceymm Plate 01/05/2015 91602-Smvvmxtn Plate 08/27/2012 71949-Fglgtoex Plate 03/17/2014 37456-Olodfncn Plate 10/06/2014 99092-Loctckye Plate 09/21/2023 58185-Vhhkocqe Plate Each Additional 37293-Sedkjfdi Plate Each Additional 01/2014 05038-Sfsjnrgl Plate Each Additional 88869 I&D ABSCESS- SIMPLE,SINGLE 012 22569 I&D ABSCESS- SIMPLE,SINGLE 011 52613 I&D ABSCESS- SIMPLE,SINGLE 021 53454-POZU SKIN LESIONS, 2 TO 4 09/21/19 24 15733-NIBW SKIN LESIONS, 2 TO 4 02/05/20 24 94649-PAYO SKIN LESIONS, 2 TO 4 12/04/19 24 91665-SFOO SKIN LESIONS, 2 TO 4 10/04/19 23 50823-TOQU SKIN LESIONS, 2 TO 4 07/12/19 23 63935-NZGW SKIN LESIONS, 2 TO 4 04/18/19 23 11507-QFIX SKIN LESIONS, 2 TO 4 01/11/20 21703-VRPZ SKIN LESIONS, 2 TO 4 03/06/20 23 93898-AZKJ SKIN LESIONS, 2 TO 4 12/13/19 23 87693-LIHQ SKIN LESIONS, 2 TO 4 05/22/19 24 87923-RFIA SKIN LESIONS, 2 TO 4 10/12/19 24398-RUZG SKIN LESIONS, 2 TO 4 05/24/19 22 35787-QKMT SKIN LESIONS, 2 TO 4 02/23/20 21631-KPTL SKIN LESIONS, 2 TO 4 11/24/19 21 10536-QOBZ SKIN LESIONS, 2 TO 4 08/25/19 21 29191-XJNV SKIN LESIONS, 2 TO 4 05/25/19 21 17782-YBJQ SKIN LESIONS, 2 TO 4 02/17/20 20 30197-XLXW SKIN LESIONS, 2 TO 4 11/11/19 66598-TBRV SKIN LESIONS, 2 TO 4 08/12/19 44376-MURY SKIN LESIONS, 2 TO 4 05/13/19 20 21531-MQMJ SKIN LESIONS, 2 TO 4 02/05/20 19 85658-NBMD SKIN LESIONS, 2 TO 4 10/30/19 19 84457-WTPL SKIN LESIONS, 2 TO 4 07/31/19 19 28902-EGVP SKIN LESIONS, 2 TO 4 04/30/19 19 73570-DDBS SKIN LESIONS, 2 TO 4 01/09/20 18 72892-URZX SKIN LESIONS, 2 TO 4 10/10/19 18 44538-QMBT SKIN LESIONS, 2 TO 4 05/31/19 13 24959-DZLP SKIN LESIONS, 2 TO 4 03/05/20 12 08456-BHFV SKIN LESIONS, 2 TO 4 12/19/19 12 93739-KAWC SKIN LESIONS, 2 TO 4 08/28/19 13 07897-GBOG SKIN LESIONS, 2 TO 4 03/11/20 13 27448-KSCI SKIN LESIONS, 2 TO 4 12/11/19 13 32619-GAIM SKIN LESIONS, 2 TO 4 01/07/20 14 56992-BQGT SKIN LESIONS, 2 TO 4 09/17/19 14 86375-QZNL SKIN LESIONS, 2 TO 4 04/20/19 16 18770-OOUE SKIN LESIONS, 2 TO 4 01/06/20 15 03984-JKGZ SKIN LESIONS, 2 TO 4 06/24/19 15 23887-NLBR SKIN LESIONS, 2 TO 4 10/07/19 15 00040-EUTS SKIN LESIONS, 2 TO 4 03/17/20 14 69456-UWWF SKIN LESIONS, 2 TO 4 06/11/19 14 46774-RLPK SKIN LESIONS, 2 TO 4 07/20/19 16 97939-AWJW SKIN LESIONS, 2 TO 4 10/26/19 16 67775-KMXD SKIN LESIONS, 2 TO 4 05/23/19 17 29202-PUYX SKIN LESIONS, 2 TO 4 08/26/19 17 64937-HTSD SKIN LESIONS, 2 TO 4 01/25/20 16 98010-SCPV SKIN LESIONS, 2 TO 4 07/11/19 18 32956-CVUR SKIN LESIONS, 2 TO 4 03/06/20 17 74155-FJSG SKIN LESIONS, 2 TO 4 12/06/19 17 86564-BYRS SKIN LESION 09/12/2011 92282-CKQF SKIN LESION 03/21/2011 99406-XLOH SKIN LESION 06/13/2011 39538-Ejvmhblee, Toes 06/28/2023 Next Appt Details Provider Name:Arturo Simon , 08/15/2024 10:15:00 AM, [address] [place], [address], Insurance Providers Payer Name Payer Address Payer Phone Subscriber Number Group Number Insured Name Patient Relationship to Insured Coverage Start Date Coverage End Date Medicare National Govt Formerly [facility] [address] [place] [address] [id number] [place], [place] Self - patient is the insured 2 [employer] [address] [place] [address] [phone] [id number] [place], [place] Self - patient is the insured [...] Date(Month/Year) [facility]23 [facility] cath put [facility] 04/2015
--- OUTSIDE RECORDS SUMMARY | 2024-06-16 11:09 | XMS_ITS | Encounter Summary ---
Author Organization [facility] Address [address] [place] [address] Care Team Providers Care Hat Lining Paster Name Role Phone Torrey Kwok MD Primary Care Provider [phone] Encounter Details Date Type Department Care Team (Late st Contact Info) Description 05/09/2024 Lab Requisition [facility] - Main Lab 299 [facility] [place] [address] Torrey Kwok MD [address] [place] [address] Type 2 diabetes mellitus with unspecified diabetic [...] Resul t [facility] [address] [place] [address], * (ABNORMAL) Complete blood count (05/12/2024 5:48 [...] LAB HEMETOLOGY METHOD 05/12/2024 12:44 PM EST [facility] NRBC 0.0 <1.0 % LAB HEMETOLOGY METHOD 05/12/2024 12:44 PM EST [facility] NRBC Absolute 0.00 <0.10 K/mcL LAB HEMETOLOGY METHOD 05/12/2024 12:44 PM EST [facility] Blood Venous blood specimen / Unknown 05/12/2024 5:48 AM EST 05/12/2024 11:25 AM EST Torrey Kwok MD LAB BLOOD ORDERABLES Final Resul t [facility] [address] [place] [address], documented in this encounter Visit Diagnoses Diagnosis 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
--- OUTSIDE RECORDS SUMMARY | 2024-06-16 11:09 | XMS_ITS | Encounter Summary ---
Author Organization [facility] Address [address] [place] [address] Care Team Providers Care Recruiting Specialist Name Role Phone Torrey Kwok MD Primary Care Provider [phone] Encounter Details Date Type Department Care Team (Late st Contact Info) Description 04/25/2024 Lab Requisition [facility] - Main Lab 299 [facility] [place] [address] Torrey Kwok MD [address] [place] [address] Vitamin D deficiency, unspecified; Type 2 diabetes [...] LAB CHEMISTRY METHOD 04/25/2024 10:35 AM EST [facility] Blood Venous blood specimen / Unknown Venipuncture / Unknown 04/25/2024 5:49 AM EST 04/25/2024 9:21 AM EST us Torrey Kwok MD LAB BLOOD ORDERABLES Final Resul t [facility] [address] [place] [address], [place] [phone] * Thyroid stimulating hormone (04/25/2024 5:49 AM EST) TSH 3.04 0.40 - 4.00 mcIU/mL LAB CHEMISTRY METHOD 04/25/2024 10:35 AM EST [facility] Blood Venous blood specimen / Unknown Venipuncture / Unknown 04/25/2024 5:49 AM EST 04/25/2024 9:21 AM EST us Torrey Kowk MD LAB BLOOD ORDERABLES Final Resul t [facility] [address] [place] [address], [place] [phone] * Folate (04/25/2024 5:49 AM EST) Folate 12.8 2.8 - 17.0 ng/ml LAB CHEMISTRY METHOD 04/25/2024 11:26 AM EST [facility] Blood Venous blood specimen / Unknown Venipuncture / Unknown 04/25/2024 5:49 AM EST 04/25/2024 9:21 AM EST us Torrey Kwok MD LAB BLOOD ORDERABLES Final Resul t [facility] [address] [place] [address], [place] [phone] * Vitamin B12 (04/25/2024 5:49 AM EST) Vitamin B-12 711 250 - 900 pcg/mL LAB CHEMISTRY METHOD 04/25/2024 11:26 AM EST [facility] Blood Venous blood specimen / Unknown Venipuncture / Unknown 04/25/2024 5:49 AM EST 04/25/2024 9:21 AM EST us Torrey Kwok MD LAB BLOOD ORDERABLES Final Resul t Performing Organization Address City/[facility]/ZIP Co de Phone Number [facility] [address] [place] [address], [place] [phone] * (ABNORMAL) Hemoglobin A1c (04/25/2024 5:49 AM EST) [facility] Hemoglobin A1C 8.7(H) <6.5 % LAB CHEMISTRY METHOD 04/25/2024 1:33 PM EST [facility] Mean Bld Glu Estim. 203 mg/dL LAB CHEMISTRY METHOD 04/25/2024 1:33 PM EST [facility] Blood Venous blood specimen / Unknown Venipuncture / Unknown 04/25/2024 5:49 AM EST 04/25/2024 9:21 AM EST Torrey Kwok MD LAB BLOOD ORDERABLES Final Resul t Performing Organization Address [facility]/ZIP Co de Phone Number [facility] [address] [place] [address], [place] [phone] * (ABNORMAL) Comprehensive metabolic panel (04/25/2024 5:49 AM EST) [facility] Sodium 135 133 - 145 mmol/L LAB CHEMISTRY METHOD 04/25/2024 11:26 AM [facility] Potassium 4.0 3.5 - 5.5 mmol/L LAB CHEMISTRY METHOD 04/25/2024 11:26 AM [facility] Chloride 98 96 - 110 mmol/L LAB CHEMISTRY METHOD 04/25/2024 11:26 AM [facility] CO2 30 21 - 32 mmol/L LAB CHEMISTRY METHOD 04/25/2024 11:26 AM [facility] Anion Gap 7 3 - 11 LAB CHEMISTRY METHOD 04/25/2024 11:26 AM [facility] Glucose 290(H) 70 - 100 mg/dL LAB CHEMISTRY METHOD 04/25/2024 11:26 AM [facility] BUN 25 5 - 25 mg/dL LAB CHEMISTRY METHOD 04/25/2024 11:26 AM [facility] Creatinine 1.06 0.50 - 1.10 mg/dL LAB CHEMISTRY METHOD 04/25/2024 11:26 AM [facility] eGFR 51(L) >=60 mL/min/1. 73m2 LAB CHEMISTRY METHOD 04/25/2024 11:26 AM [facility] Comment:Calculation based on the??Chronic Kidney Disease Epidemiology Collaboration (CKD-EPI) equation refit??without adjustment for race. BUN/Creatinine Ratio 23.6 LAB CHEMISTRY METHOD 04/25/2024 11:26 AM [facility] Calcium 8.2(L) 8.5 - 10.5 mg/dL LAB CHEMISTRY METHOD 04/25/2024 11:26 AM [facility] AST (SGOT) 17 10 - 42 unit/L LAB CHEMISTRY METHOD 04/25/2024 11:26 AM [facility] ALT (SGPT) 16 10 - 60 unit/L LAB CHEMISTRY METHOD 04/25/2024 11:26 AM [facility] Alkaline Phosphatase 81 42 - 121 unit/L LAB CHEMISTRY METHOD 04/25/2024 11:26 AM [facility] Total Protein 5.3(L) 6.0 - 8.0 g/dL LAB CHEMISTRY METHOD 04/25/2024 11:26 AM [facility] Albumin 2.7(L) 3.2 - 5.0 g/dL LAB CHEMISTRY METHOD 04/25/2024 11:26 AM [facility] Total Bilirubin 1.2 0.0 - 1.4 mg/dL LAB CHEMISTRY METHOD 04/25/2024 11:26 AM [facility] Blood Venous blood specimen / Unknown Venipuncture / Unknown 04/25/2024 5:49 AM EST 04/25/2024 9:21 AM EST us Torrey Kwok MD LAB BLOOD ORDERABLES Final Resul t [facility] [address] [place] [address], * (ABNORMAL) Complete blood count (04/25/2024 5:49 AM EST) WBC 7.7 4.8 - 10.8 K/mcL LAB HEMETOLOGY METHOD 04/25/2024 10:07 AM EST [facility] RBC 2.90(L) 3.80 - 4.80 M/mcL LAB HEMETOLOGY METHOD 04/25/2024 10:07 AM [facility] Hemoglobin 9.1(L) 11.5 - 16.0 g/dL LAB HEMETOLOGY METHOD 04/25/2024 10:07 AM [facility] Hematocrit 27.7(L) 35.0 - 47.0 % LAB HEMETOLOGY METHOD 04/25/2024 10:07 AM [facility] MCV 94.9 79.0 - 98.0 FL LAB HEMETOLOGY METHOD 04/25/2024 10:07 AM [facility] MCH 31.2 27.0 - 32.0 pcg LAB HEMETOLOGY METHOD 04/25/2024 10:07 AM [facility] MCHC 32.9 32.0 - 37.0 g/dL LAB HEMETOLOGY METHOD 04/25/2024 10:07 AM [facility] RDW 15.5(H) 11.0 - 15.0 % LAB HEMETOLOGY METHOD 04/25/2024 10:07 AM [facility] Platelets 214 130 - 400 K/mcL LAB HEMETOLOGY METHOD 04/25/2024 10:07 AM [facility] MPV 10.8 7.0 - 11.0 FL LAB HEMETOLOGY METHOD 04/25/2024 10:07 AM EST [facility] NRBC 0.0 <1.0 % LAB HEMETOLOGY METHOD 04/25/2024 10:07 AM EST [facility] NRBC Absolute 0.00 <0.10 K/mcL LAB HEMETOLOGY METHOD 04/25/2024 10:07 AM EST [facility] Blood Venous blood specimen / Unknown Venipuncture / Unknown 04/25/2024 5:49 AM EST 04/25/2024 9:21 AM EST us Torrey Kwok MD LAB BLOOD ORDERABLES Final Resul t [facility] [address] [place] [address], documented in this encounter Visit Diagnoses Diagnosis Vitamin D deficiency, unspecified 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
--- OUTSIDE RECORDS SUMMARY | 2024-06-16 11:09 | XMS_ITS | Encounter Summary ---
Author Organization [facility] Address [address] [place] [address] Care Team Providers Care N[employer] Fabrics Weaver Name Role Phone Torrey Kwok MD Primary Care Provider [phone] Encounter Details Date Type Department Care Team (Late st Contact Info) Description 05/06/2024 Lab Requisition [facility] - Main Lab [address] [facility] [place] [address] Torrey Kwok MD [address] [place] [address] Type 2 diabetes mellitus without complications (CMS/HCC) [...] LAB CHEMISTRY METHOD 05/07/2024 1:13 PM EST [facility] Potassium 4.1 3.5 - 5.5 mmol/L LAB CHEMISTRY METHOD 05/07/2024 1:13 PM [facility] Chloride 96 96 - 110 mmol/L LAB CHEMISTRY METHOD 05/07/2024 1:13 PM [facility] CO2 26 21 - 32 mmol/L LAB CHEMISTRY METHOD 05/07/2024 1:13 PM [facility] Anion Gap 8 3 - 11 LAB CHEMISTRY METHOD 05/07/2024 1:13 PM [facility] Glucose 271(H) 70 - 100 mg/dL LAB CHEMISTRY METHOD 05/07/2024 1:13 PM [facility] BUN 21 5 - 25 mg/dL LAB CHEMISTRY METHOD 05/07/2024 1:13 PM [facility] Creatinine 0.98 0.50 - 1.10 mg/dL LAB CHEMISTRY METHOD 05/07/2024 1:13 PM [facility] eGFR 56(L) >=60 mL/min/1. 73m2 LAB CHEMISTRY METHOD 05/07/2024 1:13 PM [facility] LAB Comment:Calculation based on the??Chronic Kidney Disease Epidemiology Collaboration (CKD-EPI) equation refit??without adjustment for race. BUN/Creatinine Ratio 21.4 LAB CHEMISTRY METHOD 05/07/2024 1:13 PM [facility] Calcium 9.0 8.5 - 10.5 mg/dL LAB CHEMISTRY METHOD 05/07/2024 1:13 PM [facility] Blood Venous blood specimen / Unknown Venipuncture / Unknown 05/07/2024 8:42 AM EST 05/07/2024 11:51 AM EST us Torrey Kwok MD LAB BLOOD ORDERABLES Final Resul t [facility] LAB [address] [place] [address], * (ABNORMAL) Complete blood count (05/07/2024 8:42 AM EST) WBC 9.1 4.8 - 10.8 K/[facility] LAB HEMETOLOGY METHOD 05/07/2024 12:40 PM [facility] RBC 3.90 3.80 - 4.80 M/[facility] LAB HEMETOLOGY METHOD 05/07/2024 12:40 PM [facility] Hemoglobin 12.4 11.5 - 16.0 g/dL LAB HEMETOLOGY METHOD 05/07/2024 12:40 PM [facility] Hematocrit 38.7 35.0 - 47.0 % LAB HEMETOLOGY METHOD 05/07/2024 12:40 PM [facility] MCV 99.2(H) 79.0 - 98.0 FL LAB HEMETOLOGY METHOD 05/07/2024 12:40 PM [facility] MCH 31.8 27.0 - 32.0 pcg LAB HEMETOLOGY METHOD 05/07/2024 12:40 PM [facility] MCHC 32.0 32.0 - 37.0 g/dL LAB HEMETOLOGY METHOD 05/07/2024 12:40 PM [facility] RDW 19.9(H) 11.0 - 15.0 % LAB HEMETOLOGY METHOD 05/07/2024 12:40 PM [facility] Platelets 384 130 - 400 K/[facility] LAB HEMETOLOGY METHOD 05/07/2024 12:40 PM [facility] MPV 10.7 7.0 - 11.0 FL LAB HEMETOLOGY METHOD 05/07/2024 12:40 PM [facility] NRBC 0.0 <1.0 % LAB HEMETOLOGY METHOD 05/07/2024 12:40 PM [facility] NRBC Absolute 0.00 <0.10 K/[facility] LAB HEMETOLOGY METHOD 05/07/2024 12:40 PM [facility] Blood Venous blood specimen / Unknown Venipuncture / Unknown 05/07/2024 8:42 AM EST 05/07/2024 11:51 AM EST Torrey Kwok MD LAB BLOOD ORDERABLES Final Resul t [facility] [address] [place] [address], documented in this encounter Visit Diagnoses Diagnosis Type 2 diabetes mellitus without complications (CMS/HCC) documented in this encounter Care Teams [employer] Weaver Relationship Specialty Start Date End Date Torrey Kwok MD [address] [place] [address] [address] [place] [address] PCP - General Geriatric Medicine 04/25/24 documented as of this encounter
--- OUTSIDE RECORDS SUMMARY | 2024-06-16 11:09 | XMS_ITS | Encounter Summary ---
Author Organization [facility] Address [address] [place] [address] Care Team Providers Care Trapeze Performer Name Role Phone Torrey Kwok MD Primary Care Provider [phone] Encounter Details Date Type Department Care Team (Late st Contact Info) Description 05/01/2024 Lab Requisition [facility] - Main Lab [address] [facility] [place] [address] Torrey Kwok MD [address] [place] [address] Type 2 diabetes mellitus without complications (CMS/HCC) [...] LAB CHEMISTRY METHOD 05/01/2024 9:17 AM EST [facility] LAB Potassium 4.0 3.5 - 5.5 mmol/L LAB CHEMISTRY METHOD 05/01/2024 9:17 AM EST [facility] LAB Chloride 97 96 - 110 mmol/L LAB CHEMISTRY METHOD 05/01/2024 9:17 AM EST [facility] LAB CO2 29 21 - 32 mmol/L LAB CHEMISTRY METHOD 05/01/2024 9:17 AM [facility] Anion Gap 8 3 - 11 LAB CHEMISTRY METHOD 05/01/2024 9:17 AM [facility] Glucose 262(H) 70 - 100 mg/dL LAB CHEMISTRY METHOD 05/01/2024 9:17 AM [facility] BUN 45(H) 5 - 25 mg/dL LAB CHEMISTRY METHOD 05/01/2024 9:17 AM [facility] LAB Creatinine 1.66(H) 0.50 - 1.10 mg/dL LAB CHEMISTRY METHOD 05/01/2024 9:17 AM [facility] LAB eGFR 30(L) >=60 mL/min/1. 73m2 LAB CHEMISTRY METHOD 05/01/2024 9:17 AM [facility] LAB Comment:Calculation based on the??Chronic Kidney Disease Epidemiology Collaboration (CKD-EPI) equation refit??without adjustment for race. BUN/Creatinine Ratio 27.1 LAB CHEMISTRY METHOD 05/01/2024 9:17 AM [facility] Calcium 7.6(L) 8.5 - 10.5 mg/dL LAB CHEMISTRY METHOD 05/01/2024 9:17 AM [facility] LAB Blood Venous blood specimen / Unknown Venipuncture / Unknown 05/01/2024 7:06 AM EST 05/01/2024 8:25 AM EST us Torrey Kwok MD LAB BLOOD ORDERABLES Final Resul t [facility] LAB [address] [place] [address], documented in this encounter Visit Diagnoses Diagnosis Type 2 diabetes mellitus without complications (CMS/HCC) documented in this encounter Care Teams Trapeze Performer Relationship Specialty Start Date End Date Torrey Kwok MD [address] [place] [address] [address] [place] [address] PCP - General Geriatric Medicine 04/25/24 documented as of this encounter
--- OUTSIDE RECORDS SUMMARY | 2024-06-16 11:09 | XMS_ITS | Clinical Summary ---
Author Organization [facility] Address [address] [facility] [address] [place] [address] Phone Care Team Providers Care Lehr Cutter Name Role Phone Monique White MD Primary Care Provider [phone] Allergies Active Allergy Reactions Criticality Noted Date [...] PT (per her report last PT at [facility] in July-August 2020). I have encouraged [...] [facility] Care Teams Lehr Cutter Relationship Specialty Start Date End Date Monique White MD [facility] [address] [place] PCP - General Internal Medicine 03/11/21
--- OUTSIDE RECORDS SUMMARY | 2024-06-16 11:09 | XMS_ITS | Clinical Summary ---
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) 06/07/2024 Lab Requisition [facility] [address] [place] [address] Torrey Kwok MD Type 2 diabetes mellitus with diabetic chronic kidney disease (CMS/HCC); Essential (primary) hypertension; Heart failure, unspecified (CMS/HCC); 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 Lab [address] [place] [phone] Torrey Kwok MD Type 2 diabetes mellitus with diabetic chronic kidney disease ([facility]/HCC); Essential (primary) hypertension; Heart failure, unspecified ([facility]/HCC); 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 without macular edema ([facility]/HCC) 05/30/2024 Lab Requisition [facility] [address] [place] [phone] Torrey Kwok MD Essential (primary) hypertension; Type 2 diabetes mellitus without complications ([facility]/HCC) 05/24/2024 Lab Requisition [facility] [address] [place] [phone] Torrey Kwok MD Type 2 diabetes mellitus with diabetic chronic kidney disease ([facility]); Essential (primary) hypertension; Heart failure, unspecified (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); Essential (primary) hypertension; Type 2 diabetes mellitus with diabetic chronic kidney disease ([facility]/HCC) 05/09/[address] 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); Essential (primary) hypertension; Type 2 diabetes mellitus with diabetic chronic kidney disease ([facility]/HCC) 05/06/2024 Lab Requisition [facility] [address] [place] [phone] Torrey Kwok MD Type 2 diabetes mellitus without complications ([facility]/HCC) 05/05/2024 Lab Requisition [facility] [address] [place] [phone] Torrey Kwok MD Chronic kidney disease, stage 3 unspecified ([facility]); Type 2 diabetes mellitus with diabetic chronic kidney disease ([facility]) 05/01/2024 Lab Requisition [facility] [address] [place] [phone] Torrey Kwok MD Type 2 diabetes mellitus without complications ([facility]) 04/30/2024 Lab Requisition [facility] [address] [place] [phone] Torrey Kwok MD Type 2 diabetes mellitus without complications (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); Heart failure, unspecified ([facility]); Essential (primary) hypertension from Last 3 [...] K/mcL LAB HEMETOLOGY METHOD 06/09/2024 1:30 PM [facility] RBC 3.50(L) 3.80 - 4.80 M/mcL LAB HEMETOLOGY METHOD 06/09/2024 1:30 PM [facility] Hemoglobin 11.2(L) 11.5 - 16.0 g/dL LAB HEMETOLOGY METHOD 06/09/2024 1:30 PM [facility] Hematocrit 35.6 35.0 - 47.0 % LAB HEMETOLOGY METHOD 06/09/2024 1:30 PM [facility] MCV 101.1(H) 79.0 - 98.0 FL LAB HEMETOLOGY METHOD 06/09/2024 1:30 PM [facility] MCH 31.8 27.0 - 32.0 pcg LAB HEMETOLOGY METHOD 06/09/2024 1:30 PM [facility] MCHC 31.5(L) 32.0 - 37.0 g/dL LAB HEMETOLOGY METHOD 06/09/2024 1:30 PM [facility] RDW 18.6(H) 11.0 - 15.0 % LAB HEMETOLOGY METHOD 06/09/2024 1:30 PM [facility] Platelets 346 130 - 400 K/mcL LAB HEMETOLOGY METHOD 06/09/2024 1:30 PM [facility] MPV 10.5 7.0 - 11.0 FL LAB HEMETOLOGY METHOD 06/09/2024 1:30 PM [facility] NRBC 0.0 <1.0 % LAB HEMETOLOGY METHOD 06/09/2024 1:30 PM EST [facility] NRBC Absolute 0.00 <0.10 K/mcL LAB HEMETOLOGY METHOD 06/09/2024 1:30 PM [facility] Blood Venous blood specimen / Unknown Venipuncture / Unknown 06/09/2024 6:45 AM EST 06/09/2024 11:22 AM EST us Torrey Kwok MD LAB BLOOD ORDERABLES Final Resul t [facility] [address] [place] [address], [place] [phone] * (ABNORMAL) Basic metabolic panel (06/09/2024 6:45 AM EST) Only the most recent of10 resultswithin the time period is included. Sodium 137 133 - 145 mmol/L LAB CHEMISTRY METHOD 06/09/2024 1:51 PM [facility] Potassium 3.8 3.5 - 5.5 mmol/L LAB CHEMISTRY METHOD 06/09/2024 1:51 PM [facility] Chloride 99 96 - 110 mmol/L LAB CHEMISTRY METHOD 06/09/2024 1:51 PM [facility] CO2 28 21 - 32 mmol/L LAB CHEMISTRY METHOD 06/09/2024 1:51 PM [facility] Anion Gap 10 3 - 11 LAB CHEMISTRY METHOD 06/09/2024 1:51 PM [facility] Glucose 135(H) 70 - 100 mg/dL LAB CHEMISTRY METHOD 06/09/2024 1:51 PM [facility] BUN 41(H) 5 - 25 mg/dL LAB CHEMISTRY METHOD 06/09/2024 1:51 PM [facility] Creatinine 0.99 0.50 - 1.10 mg/dL LAB CHEMISTRY METHOD 06/09/2024 1:51 PM EST [facility] eGFR 55(L) >=60 mL/min/1. 73m2 LAB CHEMISTRY METHOD 06/09/2024 1:51 PM EST [facility] Comment:Calculation based on the??Chronic Kidney Disease Epidemiology Collaboration (CKD-EPI) equation refit??without adjustment for race. BUN/Creatinine Ratio 41.4 LAB CHEMISTRY METHOD 06/09/2024 1:51 PM EST [facility] Calcium 9.2 8.5 - 10.5 mg/dL LAB CHEMISTRY METHOD 06/09/2024 1:51 PM [facility] Blood Venous blood specimen / Unknown Venipuncture / Unknown 06/09/2024 6:45 AM EST 06/09/2024 11:22 AM EST us Torrey Kwok MD LAB BLOOD ORDERABLES Final Resul t Performing Organization Address City/[facility]/ZIP Co de Phone Number [facility] [address] [place] [address], [place] [phone] * Vitamin D 25 hydroxy (06/07/2024 6:36 AM EST) Only the most recent of2 resultswithin the time period is included. Vit D, 25-Hydroxy 41.4 30.0 - 80.0 ng/mL LAB CHEMISTRY METHOD 06/07/2024 1:29 PM EST [facility] Blood Venous blood specimen / Unknown Venipuncture / Unknown 06/07/2024 6:36 AM EST 06/07/2024 9:58 AM EST us Torrey Kwok MD LAB BLOOD ORDERABLES Final Resul t [facility] [address] [place] [address], [place] [phone] * Folate (06/07/2024 6:36 AM EST) Only the most recent of2 resultswithin the time period is included. Folate 9.8 2.8 - 17.0 ng/ml LAB CHEMISTRY METHOD 06/07/2024 12:13 PM EST [facility] Blood Venous blood specimen / Unknown Venipuncture / Unknown 06/07/2024 6:36 AM EST 06/07/2024 9:58 AM EST us Torrey Kwok MD LAB BLOOD ORDERABLES Final Resul t Performing Organization Address City/[facility]/ZIP Co de Phone Number [facility] [address] [place] [address], [place] [phone] * (ABNORMAL) Vitamin B12 (06/07/2024 6:36 AM EST) Only the most recent of2 resultswithin the time period is included. [facility] Vitamin B-12 1,072(H) 250 - 900 pcg/mL LAB CHEMISTRY METHOD 06/07/2024 12:13 PM EST [facility] Blood Venous blood specimen / Unknown Venipuncture / Unknown 06/07/2024 6:36 AM EST 06/07/2024 9:58 AM EST us Torrey Kwok MD LAB BLOOD ORDERABLES Final Resul t Performing Organization Address City/[facility]/ZIP Co de Phone Number [facility] [address] [place] [address], [place] [phone] * (ABNORMAL) B-type natriuretic peptide (05/26/2024 5:59 AM EST) Pathologist [facility] BNP 320(H) <=100 pcg/mL LAB CHEMISTRY METHOD 05/26/2024 1:35 PM EST [facility] Blood Venous blood specimen / Unknown Venipuncture / Unknown 05/26/2024 5:59 AM EST 05/26/2024 11:00 AM EST us Torrey Kwok MD LAB BLOOD ORDERABLES Final Resul t [facility] [address] [place] [address], * (ABNORMAL) Comprehensive metabolic panel (05/26/2024 5:59 AM EST) Only the most recent of2 resultswithin the time period is included. Sodium 141 133 - 145 mmol/L LAB CHEMISTRY METHOD 05/26/2024 11:56 AM [facility] Potassium 3.5 3.5 - 5.5 mmol/L LAB CHEMISTRY METHOD 05/26/2024 11:56 AM [facility] Chloride 101 96 - 110 mmol/L LAB CHEMISTRY METHOD 05/26/2024 11:56 AM [facility] CO2 26 21 - 32 mmol/L LAB CHEMISTRY METHOD 05/26/2024 11:56 AM [facility] Anion Gap 14(H) 3 - 11 LAB CHEMISTRY METHOD 05/26/2024 11:56 AM [facility] Glucose 200(H) 70 - 100 mg/dL LAB CHEMISTRY METHOD 05/26/2024 11:56 AM [facility] BUN 35(H) 5 - 25 mg/dL LAB CHEMISTRY METHOD 05/26/2024 11:56 AM [facility] Creatinine 1.16(H) 0.50 - 1.10 mg/dL LAB CHEMISTRY METHOD 05/26/2024 11:56 AM [facility] eGFR 46(L) >=60 mL/min/1. 73m2 LAB CHEMISTRY METHOD 05/26/2024 11:56 AM [facility] Comment:Calculation based on the??Chronic Kidney Disease Epidemiology Collaboration (CKD-EPI) equation refit??without adjustment for race. BUN/Creatinine Ratio 30.2 LAB CHEMISTRY METHOD 05/26/2024 11:56 AM [facility] Calcium 8.9 8.5 - 10.5 mg/dL LAB CHEMISTRY METHOD 05/26/2024 11:56 AM [facility] AST (SGOT) 21 10 - 42 unit/L LAB CHEMISTRY METHOD 05/26/2024 11:56 AM [facility] ALT (SGPT) 20 10 - 60 unit/L LAB CHEMISTRY METHOD 05/26/2024 11:56 AM [facility] Alkaline Phosphatase 146(H) 42 - 121 unit/L LAB CHEMISTRY METHOD 05/26/2024 11:56 AM [facility] Total Protein 6.8 6.0 - 8.0 g/dL LAB CHEMISTRY METHOD 05/26/2024 11:56 AM [facility] Albumin 3.6 3.2 - 5.0 g/dL LAB CHEMISTRY METHOD 05/26/2024 11:56 AM [facility] Total Bilirubin 0.6 0.0 - 1.4 mg/dL LAB CHEMISTRY METHOD 05/26/2024 11:56 AM [facility] Blood Venous blood specimen / Unknown Venipuncture / Unknown 05/26/2024 5:59 AM EST 05/26/2024 11:00 AM EST us Torrey Kwok MD LAB BLOOD ORDERABLES Final Resul t [facility] [address] [place] [address], * (ABNORMAL) Urinalysis with reflex microscopic and culture (04/28/2024 12:15 PM EST) Specific [place] Urine 1.021 1.003 - 1.030 LAB URINALYSIS - AUTOMATED METHOD 04/29/2024 11:05 AM [facility] pH, Urine 5.5 5.0 - 8.0 pH LAB URINALYSIS - AUTOMATED METHOD 04/29/2024 11:05 AM [facility] Leukocytes, Urine Trace(A) Negative LAB URINALYSIS - AUTOMATED METHOD 04/29/2024 11:05 AM [facility] Nitrite, Urine Negative Negative LAB URINALYSIS - AUTOMATED METHOD 04/29/2024 11:05 AM [facility] Protein, Urine Trace <=Trace mg/dL LAB URINALYSIS - AUTOMATED METHOD 04/29/2024 11:05 AM [facility] Glucose, Urine >=1000(A) Negative mg/dL LAB URINALYSIS - AUTOMATED METHOD 04/29/2024 11:05 AM [facility] Ketones, Urine 15(A) Negative mg/dL LAB URINALYSIS - AUTOMATED METHOD 04/29/2024 11:05 AM [facility] Urobilinogen , Urine 0.2 0.2 - 1.0 mg/dL LAB URINALYSIS - AUTOMATED METHOD 04/29/2024 11:05 AM [facility] Bilirubin, Urine Negative Negative LAB URINALYSIS - AUTOMATED METHOD 04/29/2024 11:05 AM [facility] Blood, Urine Negative Negative LAB URINALYSIS - AUTOMATED METHOD 04/29/2024 11:05 AM [facility] RBC, Urine 0.8 0 - 4 /HPF LAB URINALYSIS - AUTOMATED METHOD 04/29/2024 11:05 AM [facility] WBC, Urine 12.6(H) 0 - 4 /HPF LAB URINALYSIS - AUTOMATED METHOD 04/29/2024 11:05 AM [facility] Squamous Epithelial, Urine 10 0 - 60 /LPF LAB URINALYSIS - AUTOMATED METHOD 04/29/2024 11:05 AM [facility] Bacteria, Urine Many(A) Negative /HPF LAB URINALYSIS - AUTOMATED METHOD 04/29/2024 11:05 AM [facility] Hyaline Casts, Urine 0.4 0 - 3 /LPF LAB URINALYSIS - AUTOMATED METHOD 04/29/2024 11:05 AM EST [facility] Urine Urine specimen from urinary conduit / Unknown Non-blood Collection / Unknown 04/28/2024 12:15 PM EST 04/29/2024 9:53 AM EST us Torrey Kwok MD LAB URINE ORDERABLES Final Resul t Performing Organization Address City/[facility]/ZIP Co de Phone Number [facility] [address] [place] [address], [place] [phone] * Frost urine culture tube (04/28/2024 12:15 PM EST) Extra Tube Hold for add-ons. 04/29/2024 11:01 AM EST [facility] Comment:Auto resulted. Urine Urine specimen obtained by clean catch procedure / Unknown 04/28/2024 12:15 PM EST 04/29/2024 9:53 AM EST us Torrey Kwok MD LAB URINE ORDERABLES Final Resul t Performing Organization Address [facility] Co de Phone Number [facility] [address] [place] [address], [place] [phone] * (ABNORMAL) Culture urine (04/28/2024 12:15 PM EST) Culture, Urine >100,000 CFU/mL Escherichia coli(A) ANDRE 05/01/2024 11:04 AM EST [facility] Urine Urine [...] ORDER GENET Final Result Performing Organization Address [facility] Co de Phone Number [facility] [address] [place] [address], * Thyroid stimulating hormone (04/25/2024 5:49 AM EST) Pathologist [facility] TSH 3.04 0.40 - 4.00 mcIU/mL LAB CHEMISTRY METHOD 04/25/2024 10:35 AM EST [facility] Blood Venous blood specimen / Unknown Venipuncture / Unknown 04/25/2024 5:49 AM EST 04/25/2024 9:21 AM EST Torrey Kwok MD LAB BLOOD ORDERABLES Final Resul t Performing Organization Address [facility]/ZIP Co de Phone Number [facility] [address] [place] [address], * (ABNORMAL) Hemoglobin A1c (04/25/2024 5:49 AM EST) Hemoglobin A1C 8.7(H) <6.5 % LAB CHEMISTRY METHOD 04/25/2024 1:33 PM EST [facility] Mean Bld Glu Estim. 203 mg/dL LAB CHEMISTRY METHOD 04/25/2024 1:33 PM EST [facility] Blood Venous blood specimen / Unknown Venipuncture / Unknown 04/25/2024 5:49 AM EST 04/25/2024 9:21 AM EST Torrey Kwok MD LAB BLOOD ORDERABLES Final Resul t [facility] ([facility]) [facility] [address] [place] [address], [place] [phone] from Last 3 Months Insurance MEDICARE [facility] Care Teams Production Director Relationship Specialty Start Date End Date Torrey Kwok MD [address] [place] [id number] [address] [place] [address] PCP - General Geriatric Medicine 04/25/24
--- OUTSIDE RECORDS SUMMARY | 2024-06-16 11:09 | XMS_ITS | Encounter Summary ---
Author Organization [facility] Address [address] [place] [address] Care Team Providers Care Optics Technical Officer Name Role Phone Torrey Kwok MD Primary Care Provider [phone] Encounter Details Date Type Department Care Team (Late st Contact Info) Description 05/24/2024 Lab Requisition [facility] - Main Lab [address] [facility] [place] [address] Torrey Kwok MD [address] [place] [address] Type 2 diabetes mellitus with diabetic chronic [...] mmol/L LAB CHEMISTRY METHOD 05/26/2024 11:56 AM [facility] Potassium 3.5 3.5 - 5.5 mmol/L LAB CHEMISTRY METHOD 05/26/2024 11:56 AM [facility] Chloride 101 96 - 110 mmol/L LAB CHEMISTRY METHOD 05/26/2024 11:56 AM [facility] CO2 26 21 - 32 mmol/L LAB CHEMISTRY METHOD 05/26/2024 11:56 AM [facility] Anion Gap 14(H) 3 - 11 LAB CHEMISTRY METHOD 05/26/2024 11:56 AM [facility] Glucose 200(H) 70 - 100 mg/dL LAB CHEMISTRY METHOD 05/26/2024 11:56 AM [facility] BUN 35(H) 5 - 25 mg/dL LAB CHEMISTRY METHOD 05/26/2024 11:56 AM [facility] Creatinine 1.16(H) 0.50 - 1.10 mg/dL LAB CHEMISTRY METHOD 05/26/2024 11:56 AM [facility] eGFR 46(L) >=60 mL/min/1. 73m2 LAB CHEMISTRY METHOD 05/26/2024 11:56 AM [facility] Comment:Calculation based on the??Chronic Kidney Disease Epidemiology Collaboration (CKD-EPI) equation refit??without adjustment for race. BUN/Creatinine Ratio 30.2 LAB CHEMISTRY METHOD 05/26/2024 11:56 AM [facility] Calcium 8.9 8.5 - 10.5 mg/dL LAB CHEMISTRY METHOD 05/26/2024 11:56 AM [facility] AST (SGOT) 21 10 - 42 unit/L LAB CHEMISTRY METHOD 05/26/2024 11:56 AM [facility] ALT (SGPT) 20 10 - 60 unit/L LAB CHEMISTRY METHOD 05/26/2024 11:56 AM [facility] Alkaline Phosphatase 146(H) 42 - 121 unit/L LAB CHEMISTRY METHOD 05/26/2024 11:56 AM [facility] Total Protein 6.8 6.0 - 8.0 g/dL LAB CHEMISTRY METHOD 05/26/2024 11:56 AM [facility] Albumin 3.6 3.2 - 5.0 g/dL LAB CHEMISTRY METHOD 05/26/2024 11:56 AM [facility] Total Bilirubin 0.6 0.0 - 1.4 mg/dL LAB CHEMISTRY METHOD 05/26/2024 11:56 AM [facility] Blood Venous blood specimen / Unknown Venipuncture / Unknown 05/26/2024 5:59 AM EST 05/26/2024 11:00 AM EST us Torrey Kwok MD LAB BLOOD ORDERABLES Final Resul t [facility] [address] [place] [address], * (ABNORMAL) B-type natriuretic peptide (05/26/2024 5:59 AM EST) BNP 320(H) <=100 pcg/mL LAB CHEMISTRY METHOD 05/26/2024 1:35 PM EST [facility] Blood Venous blood specimen / Unknown Venipuncture / Unknown 05/26/2024 5:59 AM EST 05/26/2024 11:00 AM EST us Torrey Kwok MD LAB BLOOD ORDERABLES Final Resul t [facility] [address] [place] [address], [place] [phone] * (ABNORMAL) Basic metabolic panel (05/26/2024 5:59 AM EST) Pathologist [facility] Sodium 141 133 - 145 mmol/L LAB CHEMISTRY METHOD 05/26/2024 11:50 AM [facility] Potassium 3.5 3.5 - 5.5 mmol/L LAB CHEMISTRY METHOD 05/26/2024 11:50 AM [facility] Chloride 101 96 - 110 mmol/L LAB CHEMISTRY METHOD 05/26/2024 11:50 AM [facility] CO2 26 21 - 32 mmol/L LAB CHEMISTRY METHOD 05/26/2024 11:50 AM [facility] Anion Gap 14(H) 3 - 11 LAB CHEMISTRY METHOD 05/26/2024 11:50 AM [facility] Glucose 200(H) 70 - 100 mg/dL LAB CHEMISTRY METHOD 05/26/2024 11:50 AM [facility] BUN 35(H) 5 - 25 mg/dL LAB CHEMISTRY METHOD 05/26/2024 11:50 AM [facility] Creatinine 1.16(H) 0.50 - 1.10 mg/dL LAB CHEMISTRY METHOD 05/26/2024 11:50 AM [facility] eGFR 46(L) >=60 mL/min/1. 73m2 LAB CHEMISTRY METHOD 05/26/2024 11:50 AM EST [facility] Comment:Calculation based on the??Chronic Kidney Disease Epidemiology Collaboration (CKD-EPI) equation refit??without adjustment for race. BUN/Creatinine Ratio 30.2 LAB CHEMISTRY METHOD 05/26/2024 11:50 AM [facility] Calcium 8.9 8.5 - 10.5 mg/dL LAB CHEMISTRY METHOD 05/26/2024 11:50 AM [facility] Blood Venous blood specimen / Unknown Venipuncture / Unknown 05/26/2024 5:59 AM EST 05/26/2024 11:00 AM EST us Torrey Kwok MD LAB BLOOD ORDERABLES Final Resul t [facility] [address] [place] [address], [place] [phone] * (ABNORMAL) Complete blood count (05/26/2024 5:59 AM EST) WBC 10.4 4.8 - 10.8 K/mcL LAB HEMETOLOGY METHOD 05/26/2024 11:12 AM [facility] RBC 3.30(L) 3.80 - 4.80 M/mcL LAB HEMETOLOGY METHOD 05/26/2024 11:12 AM [facility] Hemoglobin 10.7(L) 11.5 - 16.0 g/dL LAB HEMETOLOGY METHOD 05/26/2024 11:12 AM [facility] Hematocrit 34.0(L) 35.0 - 47.0 % LAB HEMETOLOGY METHOD 05/26/2024 11:12 AM [facility] MCV 102.1(H) 79.0 - 98.0 FL LAB HEMETOLOGY METHOD 05/26/2024 11:12 AM [facility] MCH 32.1(H) 27.0 - 32.0 pcg LAB HEMETOLOGY METHOD 05/26/2024 11:12 AM [facility] MCHC 31.5(L) 32.0 - 37.0 g/dL LAB HEMETOLOGY METHOD 05/26/2024 11:12 AM [facility] RDW 19.8(H) 11.0 - 15.0 % LAB HEMETOLOGY METHOD 05/26/2024 11:12 AM [facility] Platelets 418(H) 130 - 400 K/mcL LAB HEMETOLOGY METHOD 05/26/2024 11:12 AM [facility] MPV 10.0 7.0 - 11.0 FL LAB HEMETOLOGY METHOD 05/26/2024 11:12 AM [facility] NRBC 0.0 <1.0 % LAB HEMETOLOGY METHOD 05/26/2024 11:12 AM [facility] NRBC Absolute 0.00 <0.10 K/mcL LAB HEMETOLOGY METHOD 05/26/2024 11:12 AM [facility] Blood Venous blood specimen / Unknown Venipuncture / Unknown 05/26/2024 5:59 AM EST 05/26/2024 11:00 AM EST us Torrey Kwok MD LAB BLOOD ORDERABLES Final Resul t [facility] [address] [place] [address], documented in this encounter Visit Diagnoses Diagnosis Type 2 diabetes mellitus with diabetic chronic kidney disease (CMS/HCC) Essential (primary) hypertension Unspecified essential hypertension Heart failure, unspecified (CMS/HCC) Heart failure, unspecified 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
--- OUTSIDE RECORDS SUMMARY | 2024-06-16 11:09 | XMS_ITS ---
Author Organization [facility] Care Team Providers Care Deicer Repairer Pneumatic Name Role Phone Elijah Lim Unavailable Unavailable Sasha Garrison Unavailable Unavailable Allergies and adverse reactions No Known Allergies Care Team Name Role Address Phone Organization Dates Elijah Lim PCP [address], [address], [facility] (Office): : [facility] 12/09/2019 - 12/11/2019 Sasha Garrison Attending Physician [address], [address], [facility] (Office): [facility] 12/09/2019 - 12/11/2019 Immunizations Immunization Status Vaccine Details Vaccine Code CodeSystem Arian e Notes TB 2 Step Mantoux Skin Test completed tuberculin skin test; unspecified formulation lotNumber: [id number] expiry: 08/28/2021 Mfg: [employer] offi pasteur Given [...] 1 CHRONIC DIASTOLIC (CONGESTIVE) HEART FAILURE 12/09/[address] active 2 CONSTIPATION, UNSPECIFIED 12/09/[address] active 3 ESSENTIAL (PRIMARY) HYPERTENSION 12/09/[address] active 4 HYPOTHYROIDISM, UNSPECIFIED 12/09/[address] active 5 OTHER LACK OF COORDINATION 12/09/[address] active 6 PAIN IN RIGHT HIP 12/09/[address] active 7 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 12/09/[address] active 8 TYPE 2 DIABETES MELLITUS WITHOUT COMPLICATIONS 12/09/[address] active 9 UNSPECIFIED ATRIAL FIBRILLATION 12/09/[address] active 10 UNSPECIFIED FALL, SUBSEQUENT ENCOUNTER 12/09/[address] active 11 UNSPECIFIED OSTEOARTHRITIS, UNSPECIFIED SITE 12/09/[address] active 12 UNSTEADINESS ON FEET 12/09/[address] active 13 WEAKNESS 12/09/[address] active Reason for Referral No Reasons for Referral Entered Social History Social History Observation Description Start Date End Date Code Code System Current Smoking Status Tobacco smoking consumption unknown 081932175 SNOMED CT Sex Assigned At Female 1935 25285-[address] [facility] Vital Signs Code Code System Vitals Name Values and Units Timing Information 86274-[address] [facility] Pain Level Value=0.0 12/11/2019 9279-[address] [facility] Respiratory Rate Value=18.0 Units=/m in 12/11/2019 8462-[address] [facility] Blood Pressure-Diastolic Value=57 Un its=mmHg 12/11/2019 8480-6 [facility] Blood Pressure-Systolic Wctht=997 Un its=mmHg 12/11/2019 8310-[address] [facility] Body Temperature Value=97.1 Units=?? F 12/11/2019 8867-[address] [facility] Heart rate Value=63.0 Units=/min 06/2019 78034-[address] [facility] O2 % BldC Oximetry Value=95.0 Units= % 12/11/2019 2339-[address] [facility] Blood Sugar Dvxes=212.0 Units=mg/dL 12/11/2019 18128-6 [facility] Weight Kzsij=910.6 Units=Lbs 05/2019 8302-2 [facility] Height Value=62.0 Units=Inches 12/09/2019
--- OUTSIDE RECORDS SUMMARY | 2024-06-16 11:10 | XMS_ITS ---
Author Organization [facility] Address [address] [place] [address] Care Team Providers Care Rip Sawyer Name Role Phone Monique White Primary Care Provider Arturo Brown [phone] REASON FOR VISIT Cancel Encounters Encounter Location Date Provider Diagnosis [address] [address] 05/05/2024 Arturo Simon Plan Of Treatment Next Appt Details Provider Name:Arturo Simon , 08/15/2024 10:15:00 AM, [address] [place], [address], Progress Notes * Gerri SCHWARTZ RDOB:[birth year] (88 yo F)Acc No.[id number]:05/05/2024 Patient:?Gerri SCHWRATZ :1935???Age:88 Y???Sex:Female Address:[place], [address] * true * Date:? Generated for Printi dontae/Lee/eTransmitting on:?06/16/2024 11:09 AM EDT
--- OUTSIDE RECORDS SUMMARY | 2024-06-16 11:10 | XMS_ITS | Patient Health Record ---
Author Organization [facility] Address [address] [place] [address] Care Team Providers Care Van Loader Name Role Phone Po Monique HODGE Primary Care Provider John Moore Jr Unavailable Allergies Allergen (clinical drug ingredient) Drug/Non Drug [...] Problem Status W/U Status Risk Notes Problem [id number] Gastro-esophagea l reflux disease without esophagitis (K21.9) Active confirmed Problem 16368297 Dysphagia, unspecified type (R13.10) Active confirmed Problem 110618589 Abnormal UGI series (R93.3) Active confirmed Problem 88431173 Hypertension, unspecified type (I10) Active confirmed Encounters Encounter Location Date Provider Diagnosis [facility] [address] [place] [address] 07/09/2023 John Epps Jr Plan Of Treatment Pending Test Test Name Order Date XR GI SERIES 07/20/2016 Insurance Providers Payer Name Payer Address Payer Phone Subscriber Number Group Number Insured Name Patient Relationship to Insured Coverage Start Date Coverage End Date MEDICARE OF [place] [address] [place] [address] [id number] CHARLY SCHWARTZ Self - patient is the insured [employer] CLAIMS [address] [place] [address] [id number] CHARLY SCHWARTZ Self - patient is the insured Medical (General) History Medical History History ICD Code colonoscopy 03/25/2004 diabetes mellitus osteoporosis Hypothyroidism elevated cholesterol hypertension diverticulosis internal hemorrhoids congestive heart failure urinary incontinence-mild Surgical History Surgery Date(Month/Year) cholecystectomy knee surgery section left hip replacement right knee replacement cardioversion 12/2015
== END ==
LOC: HO.CARD 10:01
PROVIDERS: Visit Provider Internal Medicine
DX: I25.10 Atherosclerotic heart disease of native coronary artery without angina pectoris (principal); I50.9 Heart failure, unspecified
CPT/HCPCS: 93306

== ENCOUNTER → 2024-06-16 10:07 | Outpatient (BNV) | payer MEDICARE, SELFPAY | PROVIDERS: Visit Provider Internal Medicine | DX: I35.0 Nonrheumatic aortic (valve) stenosis (principal); I34.0 Nonrheumatic mitral (valve) insufficiency; I36.1 Nonrheumatic tricuspid (valve) insufficiency; I27.20 Pulmonary hypertension, unspecified | CPT/HCPCS: 93306 ==

== ENCOUNTER 2024-06-20 13:48 | Outpatient (AMB) | payer MEDICARE, SELFPAY ==
[2024-06-20 13:58] VITALS: BP 126/68; PULSE 68
--- NOTE | 2024-06-20 13:58 | A.OFFVIS_ITS ---
Vital Signs 06/20/24 13:58 Height 5 ft BMI Reason not done Patient refused/unable BP 126/68 Blood Pressure Location Lt brachial Position Sitting Pulse 68 Pulse Source Pulse Oximeter Intake Visit Reasons: 6 mth s/p echo Allergies codeine Allergy (Intermediate, Verified 06/14/24 21:46) TACHYCARDIA nitrofurantoin [Macrobid] Allergy (Unknown, Verified 06/14/24 21:46) confusion pravastatin Allergy (Unknown, Verified 06/14/24 21:46) Unknown rosuvastatin [Crestor] Allergy (Unknown, Verified 06/14/24 21:46) Unknown Sulfa (Sulfonamide Antibiotics) Allergy (Unknown, Verified 06/14/24 21:46) unknown sulfamethoxazole [From Bactrim] Allergy (Unknown, Verified 06/14/24 21:46) Unknown trimethoprim [From Bactrim] Allergy (Unknown, Verified 06/14/24 21:46) Unknown amlodipine Adverse Reaction (Intermediate, Verified 06/14/24 21:46) leg swelling digoxin Adverse Reaction (Intermediate, Verified 06/14/24 21:46) Confusion Medication List - Last Reconciled 06/20/24 by Gene Morrow MD acetaminophen 1,000 mg PO TID PRN amiodarone 200 mg PO DAILY 90 days calcitriol 0.25 mcg PO Q48H cholecalciferol (vitamin D3) 25 mcg PO DAILY dextrose (Dex4 Glucose) grams PO flash glucose sensor (FreeStyle Madeline 14 Day Sensor kit) Dx: E11.65 As directed, 14 days flash glucose sensor (FreeStyle Madeline 14 Day Sensor kit) As directed furosemide 20 mg PO DAILY gabapentin 300 mg PO BID glycerin (adult) 1 supp IA DAILY PRN insulin glargine U-300 conc (Toujeo SoloStar U-300 Insulin) 12 units subcut DAILY insulin lispro (Humalog KwikPen (U-100) Insulin) 1 sliding scale dose See Protocol subcut TIDAC lactulose 30 mL PO DAILY PRN levothyroxine 125 mcg PO DAILY@0600 melatonin mg PO .8 pm PRN metoprolol succinate ER 25 mg PO BEDTIME PRN metoprolol succinate ER 100 mg PO DAILY 90 days pen needle, diabetic (BD Eveline 2nd Gen Pen Needle) USEN TO INJECT INSULIN FOUR TIMES DAILY rivaroxaban (Xarelto) 15 mg PO DAILY@1700 simvastatin 10 mg PO BEDTIME tramadol 50 mg PO DAILY PRN travoprost 0.004% 1 drp ophthalmic (eye) BEDTIME HPI Comments Details: Gerri returns for follow-up regarding atrial fibrillation and diastolic congestive heart failure. She has been cardioverted around 4 times or so in the last few years. She was doing okay on Amiodarone but still went back into atrial fibrillation. We tried just rate control with digoxin but she had side effects from that and then went back on amiodarone for rather rate control. Per daughter, patient has declined a lot recently. She had a right hip fracture and then currently a snf. She is confused and cannot understand what is going on. When I questioned her as to where she is, she cannot say. This seems to be a big change compared to prior encounters. Patient really cannot ambulate or do much of what she did before. [facility] Medical History Urinary tract infection with fever Persistent atrial fibrillation Left thigh pain Abdominal mass, LUQ (left upper quadrant) Iliotibial band syndrome of left side UTI (urinary tract infection) Herpes zoster Orthostatic hypotension Acute hyponatremia Weakness COVID-19 Breast asymmetry Atrial fibrillation with rapid ventricular response Hyperkalemia Essential hypertension Atherosclerotic cardiovascular disease Chronic heart failure with preserved ejection fraction (HFpEF) Iliotibial band syndrome of right side Disc degeneration, lumbar Cognitive dysfunction 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 Atrial fibrillation Osteopenia Hypothyroid Spinal stenosis of lumbar region Degenerative disc disease, lumbar Type 2 diabetes mellitus with hyperglycemia Surgical History History of removal of cyst History of appendectomy History of eye surgery History of cataract surgery History of cholecystectomy History of section History of knee replacement History of hip replacement Family History Father CVD (cardiovascular disease) Mother CVD (cardiovascular disease) Stroke Social History Household Members: None Household Members Other:: son comes 3 days a week, daughter lives 5 minutes away visits frequently Housing: House Do you presently have visiting nurse or other home services: No Alcohol intake: never Comment: post cardioversion Patient Tobacco Use Status: Former Tobacco user Tobacco use type: Cigarette Years Smoked: <1 e-Cigarette/Vaping Use: Former Use Second Hand Smoke Exposure: No Advance Directives Date on File: 08/29/21 service: No Current occupational status: retired Cognitive needs: Yes (Walker) Hearing needs: No Vision needs: Yes Review of Systems Const Denies weakness ENT Denies dizziness Card Denies chest pain, Denies chest pain with activity, Denies syncope, Denies rapid heart rate, Denies pedal edema, Denies edema, Denies leg edema, Denies lightheadedness, Denies palpitations, Denies dyspnea, Denies dyspnea on exertion and Denies orthopnea Resp Denies cough, Denies dyspnea and Denies dyspnea on exertion GI Denies hematochezia and Denies change in stool character Musc Denies abnormal gait, Denies muscle cramps, Denies muscle weakness, Denies numbness, Denies radiating pain into limb and Denies tingling Neuro Denies abnormal gait, Denies dizziness, Denies syncope, Denies numbness, Denies tingling and Denies weakness Endo Denies palpitations Physical Exam Vital Signs: Last Vital Signs Pulse 68 06/20/24 13:58 BP 126/68 06/20/24 13:58 Const General: comfortable and no acute distress Orientation/consciousness: No patient oriented x3 HEENT Other: Unremarkable Head: Yes normal to inspection Neck Neck: Yes normal visual inspection Chest Chest palpation & inspection: normal inspection of the chest Resp Auscultation: clear to auscultation bilaterally Cardio Palpation: normal PMI Heart sounds: S1 normal heart sound present, S2 normal heart sound present, no gallops, no murmurs and no rubs GI Palpation (GI): Soft to palpation Back/Spine/Pelvis Other: unremarkable Skin General skin exam: no rashes or lesions noted Neuro General: No patient oriented x3 Extrem General: Yes normal to inspection Psych Mental Status: mental status grossly abnormal Assessment & Plan Assessment & Plan (1) Chronic combined systolic and diastolic CHF (congestive heart failure): Code(s): I50.42 - Chronic combined systolic (congestive) and diastolic (congestive) heart failure Category: Medical Plan: In the most recent echocardiogram, LVEF 51%. Prior to that, 38%. Wall motion abnormalities related to underlying coronary disease. Clinically, no overt heart failure and continues to be euvolemic. On diuretics and beta-blockers. Other meds like Entresto not being used mainly because of age and deteriorating mental status. Has also had hyperkalemia issues in the past. (2) Atherosclerotic cardiovascular disease: Code(s): I25.10 - Atherosclerotic heart disease of [place] coronary artery without angina pectoris Category: Medical Plan: Cardiac catheterization-2016 LAD-mid LAD 50%; mild to moderate disease beyond the mid segment; circumflex-2nd marginal-midsection 85%; RCA-moderate diffuse disease. Clinically, no overt angina. Continue statins. Stable LDL. (3) Persistent atrial fibrillation: Code(s): I48.19 - Other persistent atrial fibrillation Category: Medical Plan: Has been cardioverted several times in the past and still back in atrial fibrillation and also in spite of amiodarone. Hence we will continue the amiodarone, more for rate control. She could not tolerate other medications like digoxin. Remains on beta-blockers. Continue anticoagulation. TSH can be followed up in the snf. (4) Essential hypertension: Code(s): I10 - Essential (primary) hypertension Category: Medical Plan: Numerous med changes over time. Daughter who is a pharmacist states that she would rather not be aggressive with blood pressure management and states that as soon as the blood pressure starts going down mother gets symptomatic. Hence okay to keep blood pressure on the higher side, up to as much as 140-150/90 mm Hg and not treat too aggressively. (5) Hyperkalemia: Code(s): E87.5 - Hyperkalemia Category: Medical Plan: Off spironolactone. Plan Discussed with daughter. Coding Level of Care Code Est Pt Level 4 (79741) Complex EM visit Add On G2211 Diagnoses Chronic combined systolic and diastolic CHF (congestive heart failure) I50.42 Atherosclerotic cardiovascular disease I25.10 Persistent atrial fibrillation I48.19 Essential hypertension I10 Hyperkalemia E87.5
--- OUTSIDE RECORDS SUMMARY | 2024-06-20 15:31 | XMS_ITS | Encounter Summary ---
Author Organization [facility] Address [address] [place] [address] Care Team Providers Care Thread Pulling Machine Attendant Name Role Phone Torrey Kwok MD Primary Care Provider [phone] Encounter Details Date Type Department Care Team (Late st Contact Info) Description 06/07/2024 Lab Requisition [facility] - Main Lab 299 [facility] [place] [address] Torrey Kwok MD [address] [place] [address] Type 2 diabetes mellitus with diabetic chronic [...] mmol/L LAB CHEMISTRY METHOD 06/09/2024 1:51 PM [facility] Potassium 3.8 3.5 - 5.5 mmol/L LAB CHEMISTRY METHOD 06/09/2024 1:51 PM [facility] Chloride 99 96 - 110 mmol/L LAB CHEMISTRY METHOD 06/09/2024 1:51 PM [facility] CO2 28 21 - 32 mmol/L LAB CHEMISTRY METHOD 06/09/2024 1:51 PM [facility] Anion Gap 10 3 - 11 LAB CHEMISTRY METHOD 06/09/2024 1:51 PM [facility] Glucose 135(H) 70 - 100 mg/dL LAB CHEMISTRY METHOD 06/09/2024 1:51 PM [facility] BUN 41(H) 5 - 25 mg/dL LAB CHEMISTRY METHOD 06/09/2024 1:51 PM [facility] Creatinine 0.99 0.50 - 1.10 mg/dL LAB CHEMISTRY METHOD 06/09/2024 1:51 PM [facility] eGFR 55(L) >=60 mL/min/1. 73m2 LAB CHEMISTRY METHOD 06/09/2024 1:51 PM [facility] Comment:Calculation based on the??Chronic Kidney Disease Epidemiology Collaboration (CKD-EPI) equation refit??without adjustment for race. BUN/Creatinine Ratio 41.4 LAB CHEMISTRY METHOD 06/09/2024 1:51 PM [facility] Calcium 9.2 8.5 - 10.5 mg/dL LAB CHEMISTRY METHOD 06/09/2024 1:51 PM [facility] Blood Venous blood specimen / Unknown Venipuncture / Unknown 06/09/2024 6:45 AM EST 06/09/2024 11:22 AM EST us Torrey Kwok MD LAB BLOOD ORDERABLES Final Resul t [facility] [address] [place] [address], [place] [phone] * (ABNORMAL) Complete blood count (06/09/2024 6:45 AM EST) WBC 9.1 4.8 - 10.8 K/mcL LAB HEMETOLOGY METHOD 06/09/2024 1:30 PM [facility] RBC 3.50(L) 3.80 - 4.80 M/mcL LAB HEMETOLOGY METHOD 06/09/2024 1:30 PM [facility] Hemoglobin 11.2(L) 11.5 - 16.0 g/dL LAB HEMETOLOGY METHOD 06/09/2024 1:30 PM [facility] Hematocrit 35.6 35.0 - 47.0 % LAB HEMETOLOGY METHOD 06/09/2024 1:30 PM [facility] MCV 101.1(H) 79.0 - 98.0 FL LAB HEMETOLOGY METHOD 06/09/2024 1:30 PM [facility] MCH 31.8 27.0 - 32.0 pcg LAB HEMETOLOGY METHOD 06/09/2024 1:30 PM [facility] MCHC 31.5(L) 32.0 - 37.0 g/dL LAB HEMETOLOGY METHOD 06/09/2024 1:30 PM [facility] RDW 18.6(H) 11.0 - 15.0 % LAB HEMETOLOGY METHOD 06/09/2024 1:30 PM [facility] Platelets 346 130 - 400 K/mcL LAB HEMETOLOGY METHOD 06/09/2024 1:30 PM [facility] MPV 10.5 7.0 - 11.0 FL LAB HEMETOLOGY METHOD 06/09/2024 1:30 PM EST [facility] NRBC 0.0 <1.0 % LAB HEMETOLOGY METHOD 06/09/2024 1:30 PM EST [facility] NRBC Absolute 0.00 <0.10 K/mcL LAB HEMETOLOGY METHOD 06/09/2024 1:30 PM EST [facility] Blood Venous blood specimen / Unknown Venipuncture / Unknown 06/09/2024 6:45 AM EST 06/09/2024 11:22 AM EST us Torrey Kwok MD LAB BLOOD ORDERABLES Final Resul t [facility] [address] [place] [address], documented in this encounter Visit Diagnoses Diagnosis Type 2 diabetes mellitus with diabetic chronic kidney disease (CMS/HCC) Essential (primary) hypertension Unspecified essential hypertension Heart failure, unspecified (CMS/HCC) Heart failure, unspecified 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
--- OUTSIDE RECORDS SUMMARY | 2024-06-20 15:31 | XMS_ITS | Encounter Summary ---
Author Organization [facility] Address [address] [place] [address] Care Team Providers Care Game Trapper Name Role Phone Torrey Kwok MD Primary Care Provider [phone] Encounter Details Date Type Department Care Team (Late st Contact Info) Description 04/30/2024 Lab Requisition [facility] - Main Lab 299 [facility] [employer] [address] Torrey Kwok MD [address] [place] [address] Type 2 diabetes mellitus without complications (CMS/HCC) [...] LAB HEMETOLOGY METHOD 04/30/2024 2:51 PM EST [facility] RBC 3.40(L) 3.80 - 4.80 M/mcL LAB HEMETOLOGY METHOD 04/30/2024 2:51 PM EST [facility] Hemoglobin 10.7(L) 11.5 - 16.0 g/dL LAB HEMETOLOGY METHOD 04/30/2024 2:51 PM EST [facility] Hematocrit 34.7(L) 35.0 - 47.0 % LAB HEMETOLOGY METHOD 04/30/2024 2:51 PM [facility] MCV 101.5(H) 79.0 - 98.0 FL LAB HEMETOLOGY METHOD 04/30/2024 2:51 PM EST [facility] MCH 31.3 27.0 - 32.0 pcg LAB HEMETOLOGY METHOD 04/30/2024 2:51 PM [facility] MCHC 30.8(L) 32.0 - 37.0 g/dL LAB HEMETOLOGY METHOD 04/30/2024 2:51 PM [facility] RDW 17.1(H) 11.0 - 15.0 % LAB HEMETOLOGY METHOD 04/30/2024 2:51 PM [facility] Platelets 391 130 - 400 K/mcL LAB HEMETOLOGY METHOD 04/30/2024 2:51 PM [facility] MPV 10.8 7.0 - 11.0 FL LAB HEMETOLOGY METHOD 04/30/2024 2:51 PM [facility] NRBC 0.5 <1.0 % LAB HEMETOLOGY METHOD 04/30/2024 2:51 PM [facility] NRBC Absolute 0.03 <0.10 K/mcL LAB HEMETOLOGY METHOD 04/30/2024 2:51 PM [facility] Blood Venous blood specimen / Unknown Venipuncture / Unknown 04/30/2024 6:31 AM EST 04/30/2024 1:53 PM EST us Torrey Kwok MD LAB BLOOD ORDERABLES Final Resul t [facility] [address] [place] [address], documented in this encounter Visit Diagnoses Diagnosis Type 2 diabetes mellitus without complications (CMS/HCC) documented in this encounter Care Teams Game Trapper Relationship Specialty Start Date End Date Torrey Kwok MD [address] [place] [address] [address] [place] [address] PCP - General Geriatric Medicine 04/25/24 documented as of this encounter
--- OUTSIDE RECORDS SUMMARY | 2024-06-20 15:31 | XMS_ITS ---
Author Organization [facility] Address [address] [place] [address] Care Team Providers Care Director Corporate Name Role Phone Monique White MD Primary Care Provider Yane Epps Jr, John Unavailable REASON FOR VISIT refill omeprazole Medications Medication SIG (Take, Route, Frequency, Duration) Notes Start Date End Date Status Omeprazole 20 TAKE 1 CAPSULE BY MO UTH TWICE DAILY for 90 days Active Encounters Encounter Location Date Provider Diagnosis [facility] [address] [place] [phone] 07/09/2023 John Epps Jr Plan Of Treatment Medication Medication Name Sig Start Date Stop Date Notes Omeprazole 20 TAKE 1 CAPSULE BY MO UTH TWICE DAILY for 90 days Progress Notes * CHARLY SCHWARTZ RDOB:[birth year] (87 yo F)Acc No.[id number]:07/09/2023 Patient:?CHARLY SCHWARTZ :1935???Age:87 Y???Sex:Female Address:[place] [address] * Refills? Refill Omeprazole Capsule Delayed Release, 20, 180, TAKE 1 CAPSULE BY MOUTH TWICE DAILY, 90 days, Refills=3 * true * Date:? Generated for Awilda diggs/Lee/eTransmitting on:?06/20/2024 03:30 PM EDT
--- OUTSIDE RECORDS SUMMARY | 2024-06-20 15:31 | XMS_ITS | Encounter Summary ---
Author Organization [facility] Address [address] [place] [address] Care Team Providers Care Sap Business Intelligence Consultant Name Role Phone Torrey Kwok MD Primary Care Provider [phone] Encounter Details Date Type Department Care Team (Late st Contact Info) Description 06/14/2024 Lab Requisition [facility] - Main Lab 299 [facility] [place] [address] Torrey Kwok MD [address] [place] [address] Type 2 diabetes mellitus with diabetic chronic [...] Associated Diagnosis Comments COMPLETE BLOOD COUNT Routine 06/16/2024 5:17 AM EDT Type 2 diabetes mellitus with diabetic chronic kidney disease (CMS/HCC) Essential (primary) hypertension Heart failure, unspecified (CMS/HCC) 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) BASIC METABOLIC PANEL Routine 06/16/2024 5:17 AM EDT Type 2 diabetes mellitus with diabetic chronic kidney disease (CMS/HCC) Essential (primary) hypertension Heart failure, unspecified (CMS/HCC) 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) documented in this encounter Results * (ABNORMAL) Basic metabolic panel (06/16/2024 5:17 AM EDT) Sodium 139 133 - 145 mmol/L LAB CHEMISTRY METHOD 06/16/2024 11:54 AM [facility] Potassium 4.2 3.5 - 5.5 mmol/L LAB CHEMISTRY METHOD 06/16/2024 11:54 AM [facility] Chloride 103 96 - 110 mmol/L LAB CHEMISTRY METHOD 06/16/2024 11:54 AM [facility] CO2 26 21 - 32 mmol/L LAB CHEMISTRY METHOD 06/16/2024 11:54 AM [facility] Anion Gap 10 3 - 11 LAB CHEMISTRY METHOD 06/16/2024 11:54 AM [facility] Glucose 319(H) 70 - 100 mg/dL LAB CHEMISTRY METHOD 06/16/2024 11:54 AM [facility] BUN 26(H) 5 - 25 mg/dL LAB CHEMISTRY METHOD 06/16/2024 11:54 AM [facility] Creatinine 0.97 0.50 - 1.10 mg/dL LAB CHEMISTRY METHOD 06/16/2024 11:54 AM [facility] eGFR 57(L) >=60 mL/min/1. 73m2 LAB CHEMISTRY METHOD 06/16/2024 11:54 AM [facility] Comment:Calculation based on the??Chronic Kidney Disease Epidemiology Collaboration (CKD-EPI) equation refit??without adjustment for race. BUN/Creatinine Ratio 26.8 LAB CHEMISTRY METHOD 06/16/2024 11:54 AM [facility] Calcium 8.8 8.5 - 10.5 mg/dL LAB CHEMISTRY METHOD 06/16/2024 11:54 AM [facility] Blood Venous blood specimen / Unknown Venipuncture / Unknown 06/16/2024 5:17 AM EDT 06/16/2024 10:33 AM EDT us Torrey Kwok MD LAB BLOOD ORDERABLES Final Resul t [facility] [address] [place] [address], * (ABNORMAL) Complete blood count (06/16/2024 5:17 AM EDT) WBC 6.8 4.8 - 10.8 K/mcL LAB HEMETOLOGY METHOD 06/16/2024 11:13 AM EDT [facility] RBC 3.40(L) 3.80 - 4.80 M/mcL LAB HEMETOLOGY METHOD 06/16/2024 11:13 AM [facility] Hemoglobin 10.9(L) 11.5 - 16.0 g/dL LAB HEMETOLOGY METHOD 06/16/2024 11:13 AM [facility] Hematocrit 34.2(L) 35.0 - 47.0 % LAB HEMETOLOGY METHOD 06/16/2024 11:13 AM [facility] MCV 101.2(H) 79.0 - 98.0 FL LAB HEMETOLOGY METHOD 06/16/2024 11:13 AM [facility] MCH 32.2(H) 27.0 - 32.0 pcg LAB HEMETOLOGY METHOD 06/16[facility]24 [facility] MCHC 31.9(L) 32.0 - 37.0 g/dL LAB HEMETOLOGY METHOD 06/16/2024 11:13 AM [facility] RDW 18.4(H) 11.0 - 15.0 % LAB HEMETOLOGY METHOD 06/16/2024 11:13 AM [facility] Platelets 326 130 - 400 K/mcL LAB HEMETOLOGY METHOD 06/16/2024 11:13 AM EDT [facility] MPV 10.5 7.0 - 11.0 FL LAB HEMETOLOGY METHOD 06/16/2024 11:13 AM EDT [facility] NRBC 0.0 <1.0 % LAB HEMETOLOGY METHOD 06/16/2024 11:13 AM EDT [facility] NRBC Absolute 0.00 <0.10 K/mcL LAB HEMETOLOGY METHOD 06/16/2024 11:13 AM EDT [facility] Blood Venous blood specimen / Unknown Venipuncture / Unknown 06/16/2024 5:17 AM EDT 06/16/2024 10:36 AM EDT Torrey Kwok MD LAB BLOOD ORDERABLES Final Resul t [facility] [address] [place] [address], documented in this encounter Visit Diagnoses Diagnosis Type 2 diabetes mellitus with diabetic chronic kidney disease (CMS/HCC) Essential (primary) hypertension Unspecified essential hypertension Heart failure, unspecified (CMS/HCC) Heart failure, unspecified 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
--- OUTSIDE RECORDS SUMMARY | 2024-06-20 15:31 | XMS_ITS | Encounter Summary ---
Author Organization [facility] Address [address] [place] [address] Care Team Providers Care Afternoon Babysitter Name Role Phone Torrey Kwok MD Primary Care Provider [phone] Encounter Details Date Type Department Care Team (Late st Contact Info) Description 06/02/2024 Lab Requisition [facility] - Main Lab 299 [facility] [place] [address] Torrey Kwok MD [address] [place], [place] [id number] Chronic diastolic (congestive) heart failure (CMS/HCC); Chronic [...] MD LAB BLOOD ORDERABLES Final Resul t [facility] [address] [place] [address], * (ABNORMAL) Complete blood count (06/02/2024 12:17 PM EST) [facility] WBC 9.0 4.8 - 10.8 K/mcL [...] LAB HEMETOLOGY METHOD 06/02/2024 2:27 PM EST [facility] NRBC Absolute 0.00 <0.10 K/mcL LAB HEMETOLOGY METHOD 06/02/2024 2:27 PM EST [facility] Blood Venous blood specimen / Unknown Venipuncture / Unknown 06/02/2024 12:17 PM EST 06/02/2024 2:05 PM EST Torrey Kwok MD LAB BLOOD ORDERABLES Final Resul t [facility] [address] [place] [address], documented in this encounter Visit Diagnoses Diagnosis Chronic diastolic (congestive) heart failure (CMS/HCC) Chronic kidney disease, stage 3 unspecified (CMS/HCC) documented in this encounter Care Teams Afternoon Babysitter Relationship Specialty Start Date End Date Torrey Kwok MD [address] [place] [address] [address] [place] [address] PCP - General Geriatric Medicine 04/25/24 documented as of this encounter
--- OUTSIDE RECORDS SUMMARY | 2024-06-20 15:31 | XMS_ITS | Encounter Summary ---
Author Organization [facility] Address [address] [place] [address] Care Team Providers Care Payroll Auditor Name Role Phone Torrey Kwok MD Primary Care Provider [phone] Encounter Details Date Type Department Care Team (Late st Contact Info) Description 04/29/2024 Lab Requisition [facility] - Main Lab 299 [facility] [place] [address] Torrey Kwok MD [address] [place] [address] Dysuria Social History Tobacco Use Types Packs/Day [...] Escherichia coli(A) ANDRE 05/01/2024 11:04 AM EST [facility] Urine Urine specimen from urinary [...] MICROBIOLOGY - GENERAL ORDER GENET Final Result [facility] [address] [place] [address], [place] [phone] * Frost urine culture tube (04/28/2024 12:15 PM EST) Extra Tube Hold for add-ons. 04/29/2024 11:01 AM EST [facility] Comment:Auto resulted. Urine Urine specimen obtained by clean catch procedure / Unknown 04/28/2024 12:15 PM EST 04/29/2024 9:53 AM EST Torrey Kwok MD LAB URINE ORDERABLES Final Resul t [facility] [address] [place] [address], * (ABNORMAL) Urinalysis with reflex microscopic and culture (04/28/2024 12:15 PM EST) Specific Grant Urine 1.021 1.003 - 1.030 LAB URINALYSIS [...] MD LAB URINE ORDERABLES Final Resul t [facility] [address] [place] [address], documented in this encounter Visit Diagnoses Diagnosis Dysuria documented in this encounter Care Teams Payroll Auditor Relationship Specialty Start Date End Date Torrey Kwok MD [address] [place] [address] [address] [place] [address] PCP - General Geriatric Medicine 04/25/24 documented as of this encounter
--- OUTSIDE RECORDS SUMMARY | 2024-06-20 15:31 | XMS_ITS | Encounter Summary ---
Author Organization [facility] Address [address] [place] [address] Care Team Providers Care Plate Painter Apprentice Name Role Phone Torrey Kwok MD Primary Care Provider [phone] Encounter Details Date Type Department Care Team (Late st Contact Info) Description 05/31/2024 Lab Requisition [facility] - Main Lab 299 [facility] [place] [address] Torrey Kwok MD [address] [place] [address] Type 2 diabetes mellitus with diabetic chronic [...] mmol/L LAB CHEMISTRY METHOD 06/02/2024 1:18 PM [facility] Potassium 3.7 3.5 - 5.5 mmol/L LAB CHEMISTRY METHOD 06/02/2024 1:18 PM [facility] Chloride 94(L) 96 - 110 mmol/L LAB CHEMISTRY METHOD 06/02/2024 1:18 PM [facility] CO2 27 21 - 32 mmol/L LAB CHEMISTRY METHOD 06/02/2024 1:18 PM [facility] Anion Gap 12(H) 3 - 11 LAB CHEMISTRY METHOD 06/02/2024 1:18 PM [facility] Glucose 464(HH) 70 - 100 mg/dL LAB CHEMISTRY METHOD 06/02/2024 1:18 PM [facility] BUN 34(H) 5 - 25 mg/dL LAB CHEMISTRY METHOD 06/02/2024 1:18 PM [facility] Creatinine 1.18(H) 0.50 - 1.10 mg/dL LAB CHEMISTRY METHOD 06/02/2024 1:18 PM [facility] eGFR 45(L) >=60 mL/min/1. 73m2 LAB CHEMISTRY METHOD 06/02/2024 1:18 PM [facility] Comment:Calculation based on the??Chronic Kidney Disease Epidemiology Collaboration (CKD-EPI) equation refit??without adjustment for race. BUN/Creatinine Ratio 28.8 LAB CHEMISTRY METHOD 06/02/2024 1:18 PM [facility] Calcium 9.0 8.5 - 10.5 mg/dL LAB CHEMISTRY METHOD 06/02/2024 1:18 PM [facility] Blood Venous blood specimen / Unknown Venipuncture / Unknown 06/02/2024 5:33 AM EST 06/02/2024 10:52 AM EST us Torrey Kwok MD LAB BLOOD ORDERABLES Final Resul t [facility] [address] [place] [address], [place] [phone] * (ABNORMAL) Complete blood count (06/02/2024 5:33 AM EST) WBC 9.9 4.8 - 10.8 K/mcL LAB HEMETOLOGY METHOD 06/02/2024 2:00 PM [facility] RBC 3.70(L) 3.80 - 4.80 M/mcL LAB HEMETOLOGY METHOD 06/02/2024 2:00 PM [facility] Hemoglobin 11.5 11.5 - 16.0 g/dL LAB HEMETOLOGY METHOD 06/02/2024 2:00 PM [facility] Hematocrit 37.8 35.0 - 47.0 % LAB HEMETOLOGY METHOD 06/02/2024 2:00 PM [facility] MCV 103.6(H) 79.0 - 98.0 FL LAB HEMETOLOGY METHOD 06/02/2024 2:00 PM [facility] MCH 31.5 27.0 - 32.0 pcg LAB HEMETOLOGY METHOD 06/02/2024 2:00 PM [facility] MCHC 30.4(L) 32.0 - 37.0 g/dL LAB HEMETOLOGY METHOD 06/02/2024 2:00 PM [facility] RDW 18.5(H) 11.0 - 15.0 % LAB HEMETOLOGY METHOD 06/02/2024 2:00 PM [facility] Platelets 365 130 - 400 K/mcL LAB HEMETOLOGY METHOD 06/02/2024 2:00 PM [facility] MPV 10.4 7.0 - 11.0 FL LAB HEMETOLOGY METHOD 06/02/2024 2:00 PM EST [facility] NRBC 0.0 <1.0 % LAB HEMETOLOGY METHOD 06/02/2024 2:00 PM EST [facility] NRBC Absolute 0.00 <0.10 K/mcL LAB HEMETOLOGY METHOD 06/02/2024 2:00 PM EST [facility] Blood Venous blood specimen / Unknown Venipuncture / Unknown 06/02/2024 5:33 AM EST 06/02/2024 10:52 AM EST Torrey Kwok MD LAB BLOOD ORDERABLES Final Resul t [facility] [address] [place] [address], documented in this encounter Visit Diagnoses Diagnosis Type 2 diabetes mellitus with diabetic chronic kidney disease (CMS/HCC) Essential (primary) hypertension Unspecified essential hypertension Heart failure, unspecified (CMS/HCC) Heart failure, unspecified 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
--- OUTSIDE RECORDS SUMMARY | 2024-06-20 15:31 | XMS_ITS | Encounter Summary ---
Author Organization [facility] Address [address] [place] [address] Care Team Providers Care Healthcare Market Consultant Name Role Phone Torrey Kwok MD Primary Care Provider [phone] Encounter Details Date Type Department Care Team (Late st Contact Info) Description 06/07/2024 Lab Requisition [facility] - Main Lab 299 [facility] [place] [address] Torrey Kwok MD [address] [place] [address] Heart failure, unspecified (CMS/HCC); Type 2 diabetes [...] diabetes mellitus with diabetic chronic kidney disease ([facility]/HCC) Chronic kidney disease, stage 3 unspecified (CMS/HCC) Vitamin D deficiency, unspecified Essential (primary) hypertension documented in this encounter Results * Vitamin D 25 hydroxy (06/07/2024 6:36 AM EST) [facility] Vit D, 25-Hydroxy 41.4 30.0 - 80.0 ng/mL LAB CHEMISTRY METHOD 06/07/2024 1:29 PM EST [facility] Blood Venous blood specimen / Unknown Venipuncture / Unknown 06/07/2024 6:36 AM EST 06/07/2024 9:58 AM EST Torrey Kwok MD LAB BLOOD ORDERABLES Final Resul t [facility] [address] [place] [address], [place] [phone] * Folate (06/07/2024 6:36 AM EST) [facility] Folate 9.8 2.8 - 17.0 ng/ml LAB CHEMISTRY METHOD 06/07/2024 12:13 PM EST [facility] Blood Venous blood specimen / Unknown Venipuncture / Unknown 06/07/2024 6:36 AM EST 06/07/2024 9:58 AM EST us Torrey Kwok MD LAB BLOOD ORDERABLES Final Resul t [facility] [address] [place] [address], [place] [phone] * (ABNORMAL) Vitamin B12 (06/07/2024 6:36 AM EST) [facility] Vitamin B-12 1,072(H) 250 - 900 pcg/mL LAB CHEMISTRY METHOD 06/07/2024 12:13 PM EST [facility] Blood Venous blood specimen / Unknown Venipuncture / Unknown 06/07/2024 6:36 AM EST 06/07/2024 9:58 AM EST Torrey Kwok MD LAB BLOOD ORDERABLES Final Resul t [facility] [address] [place] [address], documented in this encounter Visit Diagnoses Diagnosis Heart failure, unspecified (CMS/HCC) Heart failure, unspecified Type 2 diabetes mellitus with diabetic chronic kidney disease (CMS/HCC) Chronic kidney disease, stage 3 unspecified (CMS/HCC) Vitamin D deficiency, unspecified Essential (primary) hypertension Unspecified essential hypertension documented in this encounter Care Teams Healthcare Market Consultant Relationship Specialty Start Date End Date Torrey Kwok MD [address] [place] [address] [address] [place] [address] PCP - General Geriatric Medicine 04/25/24 documented as of this encounter
--- OUTSIDE RECORDS SUMMARY | 2024-06-20 15:31 | XMS_ITS | Encounter Summary ---
Author Organization [facility] Address [address] [place] [address] Care Team Providers Care Nursing Aide Name Role Phone Torrey Kwok MD Primary Care Provider [phone] Encounter Details Date Type Department Care Team (Late st Contact Info) Description 05/30/2024 Lab Requisition [facility] - Main Lab [address] [place] [address] Torrey Kwok MD [address] [place] [address] Essential (primary) hypertension; Type 2 diabetes mellitus [...] LAB CHEMISTRY METHOD 05/30/2024 5:00 PM EST [facility] Potassium 3.6 3.5 - 5.5 mmol/L LAB CHEMISTRY METHOD 05/30/2024 5:00 PM [facility] Chloride 104 96 - 110 mmol/L LAB CHEMISTRY METHOD 05/30/2024 5:00 PM [facility] CO2 26 21 - 32 mmol/L LAB CHEMISTRY METHOD 05/30/2024 5:00 PM [facility] Anion Gap 9 3 - 11 LAB CHEMISTRY METHOD 05/30/2024 5:00 PM [facility] Glucose 81 70 - 100 mg/dL LAB CHEMISTRY METHOD 05/30/2024 5:00 PM [facility] BUN 31(H) 5 - 25 mg/dL LAB CHEMISTRY METHOD 05/30/2024 5:00 PM [facility] Creatinine 1.11(H) 0.50 - 1.10 mg/dL LAB CHEMISTRY METHOD 05/30/2024 5:00 PM [facility] eGFR 48(L) >=60 mL/min/1. 73m2 LAB CHEMISTRY METHOD 05/30/2024 5:00 PM [facility] Comment:Calculation based on the??Chronic Kidney Disease Epidemiology Collaboration (CKD-EPI) equation refit??without adjustment for race. BUN/Creatinine Ratio 27.9 LAB CHEMISTRY METHOD 05/30/2024 5:00 PM [facility] Calcium 8.8 8.5 - 10.5 mg/dL LAB CHEMISTRY METHOD 05/30/2024 5:00 PM [facility] Blood Venous blood specimen / Unknown Venipuncture / Unknown 05/30/2024 3:45 PM EST 05/30/2024 4:21 PM EST us Torrey Kwok MD LAB BLOOD ORDERABLES Final Resul t [facility] [address] [place] [address], [place] [phone] * (ABNORMAL) Complete blood count (05/30/2024 3:45 PM EST) [facility] WBC 7.1 4.8 - 10.8 K/mcL LAB HEMETOLOGY METHOD 05/30/2024 4:35 PM [facility] RBC 3.20(L) 3.80 - 4.80 M/mcL LAB HEMETOLOGY METHOD 05/30/2024 4:35 PM [facility] Hemoglobin 10.3(L) 11.5 - 16.0 g/dL LAB HEMETOLOGY METHOD 05/30/2024 4:35 PM [facility] Hematocrit 32.0(L) 35.0 - 47.0 % LAB HEMETOLOGY METHOD 05/30/2024 4:35 PM [facility] MCV 100.0(H) 79.0 - 98.0 FL LAB HEMETOLOGY METHOD 05/30/2024 4:35 PM [facility] MCH 32.2(H) 27.0 - 32.0 pcg LAB HEMETOLOGY METHOD 05/30/2024 4:35 PM [facility] MCHC 32.2 32.0 - 37.0 g/dL LAB HEMETOLOGY METHOD 05/30/2024 4:35 PM [facility] RDW 18.3(H) 11.0 - 15.0 % LAB HEMETOLOGY METHOD 05/30/2024 4:35 PM [facility] Platelets 319 130 - 400 K/mcL LAB HEMETOLOGY METHOD 05/30/2024 4:35 PM [facility] MPV 10.1 7.0 - 11.0 FL LAB HEMETOLOGY METHOD 05/30/2024 4:35 PM [facility] NRBC 0.0 <1.0 % LAB HEMETOLOGY METHOD 05/30/2024 4:35 PM [facility] NRBC Absolute 0.00 <0.10 K/mcL LAB HEMETOLOGY METHOD 05/30/2024 4:35 PM EST [facility] Blood Venous blood specimen / Unknown Venipuncture / Unknown 05/30/2024 3:45 PM EST 05/30/2024 4:21 PM EST Torrey Kwok MD LAB BLOOD ORDERABLES Final Resul t [facility] [address] [place] [address], documented in this encounter Visit Diagnoses Diagnosis Essential (primary) hypertension Unspecified essential hypertension Type 2 diabetes mellitus without complications (CMS/HCC) documented in this encounter Care Teams Nursing Aide Relationship Specialty Start Date End Date Torrey Kwok MD [address] [place] [address] [address] [place] [address] PCP - General Geriatric Medicine 04/25/24 documented as of this encounter
--- OUTSIDE RECORDS SUMMARY | 2024-06-20 15:31 | XMS_ITS ---
Author Organization [facility] Address [address] [place] [address] Care Team Providers Care Housing Assistant Property Manager Name Role Phone Monique White Primary Care Provider Arturo Brown Unavailable [phone] Allergies Allergen (clinical drug ingredient) Drug/Non Drug [...] Ordered Date Performed Result Body Sit e 98686-[id number] NAIL, 6 OR MORE 02/05/2024 N/A [id number] SKIN LESIONS, 2 TO 4 02/05/2024 N/A Encounters Encounter Location Date Provider Diagnosis [facility] [address] [place] [address] 02/05/2024 Arturo Simon Type 1 diabetes mellitus [...] INSTRUCTIONS.pdf) Pending Test Test Name Order Date [id number] NAIL, 6 OR MORE 02/05/2024 [id number] SKIN LESIONS, 2 TO 4 02/05/20 24 Next Appt Details Follow Up: prn, Reason: Provider Name:Arturo Simon , 08/15/2024 10:15:00 AM, [address] [place], [address], Procedure Notes * Category Sub-Category Detail Notes Debride Nail 6-10 Nail debridement Performance o f this nail treatment by a nonprofessional would put this patients foot and overall health at risk. Therefore, nail debridement was performed extensively to reduce/remove overall nail length, girth, thickness, subungual debris, and necrotic tissue, by manual and/or electrical means through the use of a nail nipper and/or dremel-type automatic grinder operator, to a more viable healthy nail plate or bed tissue 6-10. Silver nitrate used for any petechial bleeding as necessary. Definitive antifungal treatment options have been reviewed and discussed with the patient. The patient chooses, no pharmaceutical tx - 84234 Keratoma Treatment Parring or Cutting o f Benign Hyperkeratotic Lesion(s) (-56) 2-4 Lesions - The Benign hyperkeratotic lesions, as described above were pared, and/or cut utilizing a sterile 15 blade, tissue nippers, and/or dremel - 33990 Progress Notes * Gerri SCHWARTZ RDOB:[birth year] (88 yo F)Acc No.[id number]:02/05/2024 Progress Note Patient:?Gerri SCHWARTZ R Provider:?Arturo iSmon DPM :1935???Age:88 Y???Sex:Female D ate:02/05/2024 Address: [id number] Pcp:Monique White Subjective: * Chief Complaints: * [...] Hospitalization/Major Diagno stic Procedure:?[facility] [place] 11/16/23 * Family History:?Mother: dece ased, [...] bike. ?Marital status: . 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 * Medications:?TakingToujeo Ma x SoloStar 300 UNIT/ML [...] use of a nail nipper and/or dremel-type automatic grinder operator, to a more viable healthy nail plate or bed tissue 6-10. Silver nitrate used for any petechial bleeding as necessary. Definitive antifungal treatment options have been reviewed and discussed with the patient. The patient chooses, no pharmaceutical tx - 10943.?Keratoma Treatment:?Parring or Cutting of Benign Hyperkeratotic Lesion(s)?(-56) 2-4 Lesions - The Benign hyperkeratotic lesions, as described above were pared, and/or cut utilizing a sterile 15 blade, tissue nippers, and/or dremel - 89862.? * Procedure Codes:?37916 DEBRI DE NAIL, 6 OR MORE, Modifiers: XS 81701 TRIM SKIN LESIONS, 2 TO 4, Modifiers: [...] Simon DPM Date:?2023 Generated for Awilda diggs/Lee/Nilay on:?06/20/2024 03:31 PM EDT History and Physical Notes * HPI [...]
--- OUTSIDE RECORDS SUMMARY | 2024-06-20 15:31 | XMS_ITS | Encounter Summary ---
Author Organization [facility] Address [address] [place] [address] Care Team Providers Care Curriculum Counselor Name Role Phone Torrey Kwok MD Primary Care Provider [phone] Encounter Details Date Type Department Care Team (Late st Contact Info) Description 04/25/2024 Lab Requisition [facility] - Main Lab [address] [facility] [place] [address] Torrey Kwok MD [address] [place] [address] Vitamin D deficiency, unspecified; Type 2 diabetes [...] Final Resul t [facility] [address] [place] [address], [place] [phone] * Thyroid stimulating hormone (04/25/2024 5:49 AM EST) TSH 3.04 0.40 - 4.00 mcIU/mL LAB CHEMISTRY METHOD 04/25/2024 10:35 AM EST [facility] Blood Venous blood specimen / Unknown Venipuncture / Unknown 04/25/2024 5:49 AM EST 04/25/2024 9:21 AM EST us Torrey Kwok MD LAB BLOOD ORDERABLES Final Resul t [facility] [address] [place] [address], [place] [phone] * Folate (04/25/2024 5:49 AM EST) Folate 12.8 2.8 - 17.0 ng/ml LAB CHEMISTRY METHOD 04/25/2024 11:26 AM EST [facility] Blood Venous blood specimen / Unknown Venipuncture / Unknown 04/25/2024 5:49 AM EST 04/25/2024 9:21 AM EST us Torrey Kwok MD LAB BLOOD ORDERABLES Final Resul t [facility] [address] [place] [address], [place] [phone] * Vitamin B12 (04/25/2024 5:49 AM EST) Vitamin B-12 711 250 - 900 pcg/mL LAB CHEMISTRY METHOD 04/25/2024 11:26 AM EST [facility] Blood Venous blood specimen / Unknown Venipuncture / Unknown 04/25/2024 5:49 AM EST 04/25/2024 9:21 AM EST us Torrey Kwok MD LAB BLOOD ORDERABLES Final Resul t Performing Organization Address City/[facility]/ZIP Co de Phone Number [facility] [address] [place] [address], [place] [phone] * (ABNORMAL) Hemoglobin A1c (04/25/2024 5:49 AM EST) [facility] Hemoglobin A1C 8.7(H) <6.5 % LAB CHEMISTRY METHOD 04/25/2024 1:33 PM EST [facility] Mean Bld Glu Estim. 203 mg/dL LAB CHEMISTRY METHOD 04/25/2024 1:33 PM EST [facility] Blood Venous blood specimen / Unknown Venipuncture / Unknown 04/25/2024 5:49 AM EST 04/25/2024 9:21 AM EST Torrey Kwok MD LAB BLOOD ORDERABLES Final Resul t Performing Organization Address [facility]/ZIP Co de Phone Number [facility] [address] [place] [address], [place] [phone] * (ABNORMAL) Comprehensive metabolic panel (04/25/2024 5:49 AM EST) [facility] Sodium 135 133 - 145 mmol/L LAB CHEMISTRY METHOD 04/25/2024 11:26 AM [facility] Potassium 4.0 3.5 - 5.5 mmol/L LAB CHEMISTRY METHOD 04/25/2024 11:26 AM [facility] Chloride 98 96 - 110 mmol/L LAB CHEMISTRY METHOD 04/25/2024 11:26 AM [facility] CO2 30 21 - 32 mmol/L LAB CHEMISTRY METHOD 04/25/2024 11:26 AM [facility] Anion Gap 7 3 - 11 LAB CHEMISTRY METHOD 04/25/2024 11:26 AM [facility] Glucose 290(H) 70 - 100 mg/dL LAB CHEMISTRY METHOD 04/25/2024 11:26 AM [facility] BUN 25 5 - 25 mg/dL LAB CHEMISTRY METHOD 04/25/2024 11:26 AM [facility] Creatinine 1.06 0.50 - 1.10 mg/dL LAB CHEMISTRY METHOD 04/25/2024 11:26 AM [facility] eGFR 51(L) >=60 mL/min/1. 73m2 LAB CHEMISTRY METHOD 04/25/2024 11:26 AM [facility] Comment:Calculation based on the??Chronic Kidney Disease Epidemiology Collaboration (CKD-EPI) equation refit??without adjustment for race. BUN/Creatinine Ratio 23.6 LAB CHEMISTRY METHOD 04/25/2024 11:26 AM [facility] Calcium 8.2(L) 8.5 - 10.5 mg/dL LAB CHEMISTRY METHOD 04/25/2024 11:26 AM [facility] AST (SGOT) 17 10 - 42 unit/L LAB CHEMISTRY METHOD 04/25/2024 11:26 AM [facility] ALT (SGPT) 16 10 - 60 unit/L LAB CHEMISTRY METHOD 04/25/2024 11:26 AM [facility] Alkaline Phosphatase 81 42 - 121 unit/L LAB CHEMISTRY METHOD 04/25/2024 11:26 AM [facility] Total Protein 5.3(L) 6.0 - 8.0 g/dL LAB CHEMISTRY METHOD 04/25/2024 11:26 AM [facility] Albumin 2.7(L) 3.2 - 5.0 g/dL LAB CHEMISTRY METHOD 04/25/2024 11:26 AM [facility] Total Bilirubin 1.2 0.0 - 1.4 mg/dL LAB CHEMISTRY METHOD 04/25/2024 11:26 AM [facility] Blood Venous blood specimen / Unknown Venipuncture / Unknown 04/25/2024 5:49 AM EST 04/25/2024 9:21 AM EST us Torrey Kwok MD LAB BLOOD ORDERABLES Final Resul t [facility] [address] [place] [address], * (ABNORMAL) Complete blood count (04/25/2024 5:49 AM EST) WBC 7.7 4.8 - 10.8 K/mcL LAB HEMETOLOGY METHOD 04/25/2024 10:07 AM EST [facility] RBC 2.90(L) 3.80 - 4.80 M/mcL LAB HEMETOLOGY METHOD 04/25/2024 10:07 AM [facility] Hemoglobin 9.1(L) 11.5 - 16.0 g/dL LAB HEMETOLOGY METHOD 04/25/2024 10:07 AM [facility] Hematocrit 27.7(L) 35.0 - 47.0 % LAB HEMETOLOGY METHOD 04/25/2024 10:07 AM [facility] MCV 94.9 79.0 - 98.0 FL LAB HEMETOLOGY METHOD 04/25/2024 10:07 AM [facility] MCH 31.2 27.0 - 32.0 pcg LAB HEMETOLOGY METHOD 04/25/2024 10:07 AM [facility] MCHC 32.9 32.0 - 37.0 g/dL LAB HEMETOLOGY METHOD 04/25/2024 10:07 AM [facility] RDW 15.5(H) 11.0 - 15.0 % LAB HEMETOLOGY METHOD 04/25/2024 10:07 AM [facility] Platelets 214 130 - 400 K/mcL LAB HEMETOLOGY METHOD 04/25/2024 10:07 AM [facility] MPV 10.8 7.0 [...] Final Resul t [facility] [address] [place] [address], documented in this encounter Visit Diagnoses Diagnosis Vitamin D deficiency, unspecified 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) Heart failure, unspecified (CMS/HCC) Heart failure, unspecified Essential (primary) hypertension Unspecified essential hypertension documented in this encounter Care Teams Curriculum Counselor Relationship Specialty Start Date End Date Torrey Kwok MD [address] [place] [address] [address] [place] [address] PCP - General Geriatric Medicine 04/25/24 documented as of this encounter
--- OUTSIDE RECORDS SUMMARY | 2024-06-20 15:31 | XMS_ITS | Encounter Summary ---
Author Organization [facility] Address [address] [place] [address] Care Team Providers Care Insulation Sprayer Name Role Phone Torrey Kwok MD Primary Care Provider [phone] Encounter Details Date Type Department Care Team (Late st Contact Info) Description 05/01/2024 Lab Requisition [facility] - Main Lab [address] [facility] [place] [address] Torrey Kwok MD [address] [place] [address] Type 2 diabetes mellitus without complications (CMS/HCC) [...] LAB CHEMISTRY METHOD 05/01/2024 9:[address] [facility] Potassium 4.0 3.5 - 5.5 mmol/L LAB CHEMISTRY METHOD 05/01/2024 9:[address] [facility] Chloride 97 96 - 110 mmol/L LAB CHEMISTRY METHOD 05/01/2024 9:[address] [facility] CO2 29 21 - 32 [...] Resul t [facility] [address] [place] [address], documented in this encounter Visit Diagnoses Diagnosis Type 2 diabetes mellitus without complications (CMS/HCC) documented in this encounter Care Teams Insulation Sprayer Relationship Specialty Start Date End Date Torrey Kwok MD [address] [place] [address] [address] [place] [address] PCP - General Geriatric Medicine 04/25/24 documented as of this encounter
--- OUTSIDE RECORDS SUMMARY | 2024-06-20 15:31 | XMS_ITS | Encounter Summary ---
Author Organization [facility] Address [address] [place] [address] Care Team Providers Care Law Instructor Name Role Phone Torrey Kwok MD Primary Care Provider [phone] Encounter Details Date Type Department Care Team (Late st Contact Info) Description 05/16/[address] [facility] - Main Lab [address] [facility] [place] [address] Torrey Kwok MD [address] [place] [address] Heart failure, unspecified (CMS/HCC); Essential (primary) hypertension; [...] mmol/L LAB CHEMISTRY METHOD 05/19/2024 2:03 PM [facility] Potassium 3.7 3.5 - 5.5 mmol/L LAB CHEMISTRY METHOD 05/19/2024 2:03 PM [facility] Chloride 102 96 - 110 mmol/L LAB CHEMISTRY METHOD 05/19/2024 2:03 PM [facility] CO2 25 21 - 32 mmol/L LAB CHEMISTRY METHOD 05/19/2024 2:03 PM [facility] Anion Gap 10 3 - 11 LAB CHEMISTRY METHOD 05/19/2024 2:03 PM [facility] Glucose 92 70 - 100 mg/dL LAB CHEMISTRY METHOD 05/19/2024 2:03 PM [facility] BUN 23 5 - 25 mg/dL LAB CHEMISTRY METHOD 05/19/2024 2:03 PM [facility] Creatinine 0.97 0.50 - 1.10 mg/dL LAB CHEMISTRY METHOD 05/19/2024 2:03 PM [facility] eGFR 57(L) >=60 mL/min/1. 73m2 LAB CHEMISTRY METHOD 05/19/2024 2:03 PM [facility] Comment:Calculation based on the??Chronic Kidney Disease Epidemiology Collaboration (CKD-EPI) equation refit??without adjustment for race. BUN/Creatinine Ratio 23.7 LAB CHEMISTRY METHOD 05/19/2024 2:03 PM [facility] Calcium 8.8 8.5 - 10.5 mg/dL LAB CHEMISTRY METHOD 05/19/2024 2:03 PM [facility] Blood Venous blood specimen / Unknown Venipuncture / Unknown 05/19/2024 7:33 AM EST 05/19/2024 12:17 PM EST us Torrey Kwok MD LAB BLOOD ORDERABLES Final Resul t [facility] [address] [place] [address], * (ABNORMAL) Complete blood count (05/19/2024 7:33 AM EST) [facility] WBC 5.4 4.8 - 10.8 K/mcL LAB HEMETOLOGY METHOD 05/19/2024 1:26 PM [facility] RBC 3.50(L) 3.80 - 4.80 M/mcL LAB HEMETOLOGY METHOD 05/19/2024 1:26 PM [facility] Hemoglobin 11.1(L) 11.5 - 16.0 g/dL LAB HEMETOLOGY METHOD 05/19/2024 1:26 PM [facility] Hematocrit 35.7 35.0 - 47.0 % LAB HEMETOLOGY METHOD 05/19/2024 1:26 PM [facility] MCV 103.5(H) 79.0 - 98.0 FL LAB HEMETOLOGY METHOD 05/19/2024 1:26 PM [facility] MCH 32.2(H) 27.0 - 32.0 pcg LAB HEMETOLOGY METHOD 05/19/2024 1:26 PM [facility] MCHC 31.1(L) 32.0 - 37.0 g/dL LAB HEMETOLOGY METHOD 05/19/2024 1:26 PM [facility] RDW 20.0(H) 11.0 - 15.0 % LAB HEMETOLOGY METHOD 05/19/2024 1:26 PM [facility] Platelets 344 130 - 400 K/mcL LAB HEMETOLOGY METHOD 05/19/2024 1:26 PM [facility] MPV 10.8 7.0 - 11.0 FL LAB HEMETOLOGY METHOD 05/19/2024 1:26 PM [facility] NRBC 0.0 <1.0 % LAB HEMETOLOGY METHOD 05/19/2024 1:26 PM EST [facility] NRBC Absolute 0.00 <0.10 K/mcL LAB HEMETOLOGY METHOD 05/19/2024 1:26 PM EST [facility] Blood Venous blood specimen / Unknown Venipuncture / Unknown 05/19/2024 7:33 AM EST 05/19/2024 12:17 PM EST us Torrey Kwok MD LAB BLOOD ORDERABLES Final Resul t [facility] [address] [place] [address], documented in this encounter Visit Diagnoses Diagnosis Heart failure, unspecified (CMS/HCC) Heart failure, unspecified Essential (primary) hypertension Unspecified essential hypertension Type 2 diabetes mellitus with diabetic chronic kidney disease (CMS/HCC) documented in this encounter Care Teams Law Instructor Relationship Specialty Start Date End Date Torrey Kwok MD [address] [place] [address] [address] [place] [address] PCP - General Geriatric Medicine 04/25/24 documented as of this encounter
--- OUTSIDE RECORDS SUMMARY | 2024-06-20 15:31 | XMS_ITS | Encounter Summary ---
Author Organization [facility] Address [address] [place] [address] Phone Care Team Providers Care Cook Specialty Foreign Food Name Role Phone Monique White MD Primary Care Provider [phone] Encounter Details Date Type Department Care Team (Late st Contact Info) Description 06/07/2021 Telephone [facility] [address] [place] [address] Sohail Penaloza MD Social History [...] with you. Please call her back at [phone] Thank you documented in this encounter Plan of Treatment Not on file documented as of this encounter Visit Diagnoses Not on filedocumented in this encounter Care Teams Cook Specialty Foreign Food Relationship Specialty Start Date End Date Monique White MD [facility] [address] [place] PCP - General Internal Medicine 03/11/21 documented as of this encounter
--- OUTSIDE RECORDS SUMMARY | 2024-06-20 15:31 | XMS_ITS | Encounter Summary ---
Author Organization [facility] Address [address] [place] [address] Care Team Providers Care Supervisor Webbing Name Role Phone Torrey Kwok MD Primary Care Provider Encounter Details Date Type Department Care Team (Late st Contact Info) Description 05/24/2024 Lab Requisition [facility] - Main Lab [address] [facility] [place] [address] Torrey Kwok MD [address] [place] [address] Type 2 diabetes mellitus with diabetic chronic [...] Final Resul t [facility] [address] [place] [address], * (ABNORMAL) B-type natriuretic peptide (05/26/2024 5:59 AM EST) BNP 320(H) <=100 pcg/mL LAB CHEMISTRY METHOD 05/26/2024 1:35 PM EST [facility] Blood Venous blood specimen / Unknown Venipuncture / Unknown 05/26/2024 5:59 AM EST 05/26/2024 11:00 AM EST us Torrey Kwok MD LAB BLOOD ORDERABLES Final Resul t [facility] [address] [place] [address], [place] [phone] * (ABNORMAL) Basic metabolic panel (05/26/2024 5:59 AM EST) Pathologist [facility] Sodium 141 133 - 145 mmol/L [...] Final Resul t [facility] [address] [place] [address], [place] [phone] * (ABNORMAL) Complete blood count (05/26/2024 5:59 [...] Resul t [facility] [address] [place] [address], documented in this encounter Visit Diagnoses Diagnosis Type 2 diabetes mellitus with diabetic chronic kidney disease (CMS/HCC) Essential (primary) hypertension Unspecified essential hypertension Heart failure, unspecified (CMS/HCC) Heart failure, unspecified 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
--- OUTSIDE RECORDS SUMMARY | 2024-06-20 15:31 | XMS_ITS | Encounter Summary ---
Author Organization [facility] Address [address] [place] [address] Care Team Providers Care Pattern Hand Name Role Phone Torrey Kwok MD Primary Care Provider [phone] Encounter Details Date Type Department Care Team (Late st Contact Info) Description 05/05/2024 Lab Requisition [facility] - Main Lab [address] [facility] [place] [address] Torrey Kowk MD [address] [place] [address] Chronic kidney disease, stage 3 unspecified (CMS/HCC); [...] LAB CHEMISTRY METHOD 05/05/2024 2:05 PM EST [facility] Potassium 5.0 3.5 - 5.5 mmol/L LAB CHEMISTRY METHOD 05/05/2024 2:05 PM EST [facility] Comment:Hemolysis present Chloride 99 96 [...] Final Resul t [facility] [address] [place] [address], documented in this encounter Visit Diagnoses Diagnosis Chronic kidney disease, stage 3 unspecified (CMS/HCC) Type 2 diabetes mellitus with diabetic chronic kidney disease (CMS/HCC) documented in this encounter Care Teams Pattern Hand Relationship Specialty Start Date End Date Torrey Kwok MD [address] [place] [address] [address] [place] [address] PCP - General Geriatric Medicine 04/25/24 documented as of this encounter
--- OUTSIDE RECORDS SUMMARY | 2024-06-20 15:32 | XMS_ITS | Clinical Summary ---
Author Organization [facility] Address [address] [facility] [address] [place] [address] Phone Care Team Providers Care Rivet Thrower Name Role Phone Monique White MD Primary Care Provider [phone] Allergies Active Allergy Reactions Criticality Noted Date [...] PT (per her report last PT at [facility] in July-August 2020). I have encouraged [...] patient's age to complete this topic Insurance [facility] MEDICARE [facility] MEDICARE Care Teams Rivet Thrower Relationship Specialty Start Date End Date Monique White MD [facility] [address] [facility] [facility] [place] PCP - General Internal Medicine 03/11/21
--- OUTSIDE RECORDS SUMMARY | 2024-06-20 15:32 | XMS_ITS ---
Author Organization [facility] Address [address] [place] [address] Care Team Providers Care Electronics Inspector Name Role Phone Monique White Primary Care Provider Arturo Brown Unavailable [phone] Encounters Encounter Location Date Provider Diagnosis [address] [address] 05/06/2024 Arturo Simon Plan Of Treatment Next Appt Details Provider Name:Arturo Simon , 08/15/2024 10:15:00 AM, [address] [place], [address], Progress Notes * Gerri SCHWARTZ RDOB:[birth year] (88 yo F)Acc No.[id number]:05/06/2024 Progress Note Patient:?Gerri SCHWARTZ R Provider:?Arturo Simon DPM :1935???Age:88 Y???Sex:Female D ate:05/06/2024 Address:[id number] Pcp:Monique White Subjective: * Chief Complaints: * ??? * Medical History:? Objective: * Vitals:? Assessment: Plan: * Treatment: * Images: * The named appointment provid er may or may not be the originator of this progress note, and it is not deemed complete until electronically signed by the appointment provider. Sign off status: Pending * Provider:?Arturo Simon DPM Date:?2024 Generated for Awilda diggs/Lee/Nilay on:?06/20/2024 03:32 PM EDT
--- OUTSIDE RECORDS SUMMARY | 2024-06-20 15:32 | XMS_ITS | Encounter Summary ---
Author Organization [facility] [place] Address [address] [place] [address] Care Team Providers Care Geek Squad Manager Name Role Phone Torrey Kwok MD Primary Care Provider [phone] Encounter Details Date Type Department Care Team (Late st Contact Info) Description 06/20/2024 Lab Requisition [facility] - Main Lab [address] [facility] [place] [address] Torrey Kwok MD [address] [place] [address] Essential (primary) hypertension; Type 2 diabetes mellitus [...] Associated Diagnosis Comments COMPLETE BLOOD COUNT Routine 06/20/2024 6:10 AM EDT Essential (primary) hypertension Type 2 diabetes mellitus without complications (CMS/HCC) BASIC METABOLIC PANEL Routine 06/20/2024 6:10 AM EDT Essential (primary) hypertension Type 2 diabetes mellitus without complications (CMS/HCC) documented in this encounter Results * (ABNORMAL) Basic metabolic panel (06/20/2024 6:10 AM EDT) Sodium 138 133 - 145 mmol/L LAB CHEMISTRY METHOD 06/20/2024 11:[address] [facility] Potassium 4.1 3.5 - 5.5 mmol/L LAB CHEMISTRY METHOD 06/20/2024 11:38 AM [facility] Chloride 104 96 - 110 mmol/L LAB CHEMISTRY METHOD 06/20/2024 11:38 AM [facility] CO2 29 21 - 32 mmol/L LAB CHEMISTRY METHOD 06/20/2024 11:38 AM [facility] Anion Gap 5 3 - 11 LAB CHEMISTRY METHOD 06/20/2024 11:38 AM [facility] Glucose 53(L) 70 - 100 mg/dL LAB CHEMISTRY METHOD 06/20/2024 11:38 AM [facility] BUN 39(H) 5 - 25 mg/dL LAB CHEMISTRY METHOD 06/20/2024 11:38 AM [facility] Creatinine 0.97 0.50 - 1.10 mg/dL LAB CHEMISTRY METHOD 06/20/2024 11:38 AM [facility] eGFR 57(L) >=60 mL/min/1. 73m2 LAB CHEMISTRY METHOD 06/20/2024 11:38 AM [facility] Comment:Calculation based on the??Chronic Kidney Disease Epidemiology Collaboration (CKD-EPI) equation refit??without adjustment for race. BUN/Creatinine Ratio 40.2 LAB CHEMISTRY METHOD 06/20/2024 11:38 AM [facility] Calcium 9.2 8.5 - 10.5 mg/dL LAB CHEMISTRY METHOD 06/20/2024 11:38 AM [facility] Blood Venous blood specimen / Unknown Venipuncture / Unknown 06/20/2024 6:10 AM EDT 06/20/2024 10:40 AM EDT us Torrey Kwok MD LAB BLOOD ORDERABLES Final Resul t [facility] [address] [place] [address], * (ABNORMAL) Complete blood count (06/20/2024 6:10 AM EDT) [facility] Signature WBC 6.5 4.8 - 10.8 K/mcL LAB HEMETOLOGY METHOD 06/20/2024 11:08 AM [facility] RBC 3.70(L) 3.80 - 4.80 M/mcL LAB HEMETOLOGY METHOD 06/20/2024 11:08 AM [facility] Hemoglobin 12.0 11.5 - 16.0 g/dL LAB HEMETOLOGY METHOD 06/20/2024 11:08 AM [facility] Hematocrit 37.1 35.0 - 47.0 % LAB HEMETOLOGY METHOD 06/20/2024 11:08 AM [facility] MCV 100.5(H) 79.0 - 98.0 FL LAB HEMETOLOGY METHOD 06/20/2024 11:08 AM [facility] MCH 32.5(H) 27.0 - 32.0 pcg LAB HEMETOLOGY METHOD 06/20/2024 11:08 AM [facility] MCHC 32.3 32.0 - 37.0 g/dL LAB HEMETOLOGY METHOD 06/20/2024 11:08 AM [facility] RDW 18.3(H) 11.0 - 15.0 % LAB HEMETOLOGY METHOD 06/20/2024 11:08 AM [facility] Platelets 313 130 - 400 K/mcL LAB HEMETOLOGY METHOD 06/20/2024 11:08 AM [facility] MPV 10.8 7.0 - 11.0 FL LAB HEMETOLOGY METHOD 06/20/2024 11:08 AM [facility] NRBC 0.0 <1.0 % LAB HEMETOLOGY METHOD 06/20/2024 11:08 AM [facility] NRBC Absolute 0.00 <0.10 K/mcL LAB HEMETOLOGY METHOD 06/20/2024 11:[address] [facility] Blood Venous blood specimen / Unknown Venipuncture / Unknown 06/20/2024 6:10 AM EDT 06/20/2024 10:40 AM EDT us Torrey Kwok MD LAB BLOOD ORDERABLES Final Resul t [facility] [address] [place] [address], documented in this encounter Visit Diagnoses Diagnosis Essential (primary) hypertension Unspecified essential hypertension Type 2 diabetes mellitus without complications (CMS/HCC) documented in this encounter Care Teams Geek Squad Manager Relationship Specialty Start Date End Date Torrey Kwok MD [address] [place] [address] [address] [place] [address] PCP - General Geriatric Medicine 04/25/24 documented as of this encounter
--- OUTSIDE RECORDS SUMMARY | 2024-06-20 15:32 | XMS_ITS ---
Author Organization [facility] Care Team Providers Care Manager Game Name Role Phone Elijah Lim Unavailable Unavailable Sasha Garrison Unavailable Unavailable Allergies and adverse reactions No Known Allergies Care Team Name Role Address Phone Organization Dates Elijah Lim PCP [address], [address], [facility] (Office): : [facility] 12/09/2019 - 12/11/2019 Sasha Garrison Attending Physician [address], [address], [facility] (Office): [facility] 12/09/2019 - 12/11/2019 Immunizations Immunization Status Vaccine Details Vaccine Code CodeSystem Arian e Notes TB 2 Step Mantoux Skin Test completed tuberculin skin test; unspecified formulation lotNumber: [id number] expiry: 08/28/2021 Mfg: [employer] offi pasteur Given [...] 1 CHRONIC DIASTOLIC (CONGESTIVE) HEART FAILURE 12/09/[address] active 2 CONSTIPATION, UNSPECIFIED 12/09/[address] active 3 ESSENTIAL (PRIMARY) HYPERTENSION 12/09/[address] active 4 HYPOTHYROIDISM, UNSPECIFIED 12/09/[address] active 5 OTHER LACK OF COORDINATION 12/09/[address] active 6 PAIN IN RIGHT HIP 12/09/[address] active 7 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 12/09/[address] active 8 TYPE 2 DIABETES MELLITUS WITHOUT COMPLICATIONS 12/09/[address] active 9 UNSPECIFIED ATRIAL FIBRILLATION 12/09/[address] active 10 UNSPECIFIED FALL, SUBSEQUENT ENCOUNTER 12/09/[address] active 11 UNSPECIFIED OSTEOARTHRITIS, UNSPECIFIED SITE 12/09/[address] active 12 UNSTEADINESS ON FEET 12/09/[address] active 13 WEAKNESS 12/09/[address] active Reason for Referral No Reasons for Referral Entered Social History Social History Observation Description Start Date End Date Code Code System Current Smoking Status Tobacco smoking consumption unknown 078642383 SNOMED CT Sex Assigned At Female 1935 52084-5 [facility] Vital Signs Code Code System Vitals Name Values and Units Timing Information 55211-5 [facility] Pain Level Value=0.0 12/11/2019 9279-1 [facility] Respiratory Rate Value=18.0 Units=/m in 12/11/2019 8462-4 [facility] Blood Pressure-Diastolic Value=57 Un its=mmHg 12/11/2019 8480-6 [facility] Blood Pressure-Systolic Sbbkj=895 Un its=mmHg 12/11/2019 8310-5 [facility] Body Temperature Value=97.1 Units=?? F 12/11/2019 8867-4 [facility] Heart rate Value=63.0 Units=/min 06/2019 73508-6 [facility] O2 % BldC Oximetry Value=95.0 Units= % 12/11/2019 2339-0 [facility] Blood Sugar Poaio=939.0 Units=mg/dL 12/11/2019 29859-9 [facility] Weight Ewddd=303.6 Units=Lbs 05/2019 8302-2 [facility] Height Value=62.0 Units=Inches 12/09/2019
--- OUTSIDE RECORDS SUMMARY | 2024-06-20 15:32 | XMS_ITS | Encounter Summary ---
Author Organization [facility] Address [address] [place] [address] Care Team Providers Care Dining Car Steward Name Role Phone Torrey Kwok MD Primary Care Provider [phone] Encounter Details Date Type Department Care Team (Late st Contact Info) Description 05/09/2024 Lab Requisition [facility] - Main Lab [address] [facility] [place] [address] Torrey Kwok MD [address] [place], [place] [id number] Type 2 diabetes mellitus with unspecified diabetic [...] (CMS/HCC) documented in this encounter Care Teams Dining Car Steward Relationship Specialty Start Date End Date Torrey Kwok MD [address] [place], [place] [id number] PCP - General Geriatric Medicine 04/25/24 documented as of this encounter
--- OUTSIDE RECORDS SUMMARY | 2024-06-20 15:32 | XMS_ITS | Encounter Summary ---
Author Organization [facility] Address [address] [place] [address] Care Team Providers Care Steno Pool Supervisor Name Role Phone Torrey Kwok MD Primary Care Provider [phone] Encounter Details Date Type Department Care Team (Late st Contact Info) Description 05/09/[address] [facility] - Main Lab [address] [facility] [email or web address] [address] Torrey Kwok MD [address] [place] [address] Type 2 diabetes mellitus with unspecified diabetic [...] mmol/L LAB CHEMISTRY METHOD 05/12/2024 1:22 PM [facility] Potassium 3.5 3.5 - 5.5 mmol/L LAB CHEMISTRY METHOD 05/12/2024 1:22 PM [facility] Chloride 98 96 - 110 mmol/L LAB CHEMISTRY METHOD 05/12/2024 1:22 PM [facility] CO2 30 21 - 32 mmol/L LAB CHEMISTRY METHOD 05/12/2024 1:22 PM [facility] Anion Gap 7 3 - 11 LAB CHEMISTRY METHOD 05/12/2024 1:22 PM [facility] Glucose 219(H) 70 - 100 mg/dL LAB CHEMISTRY METHOD 05/12/2024 1:22 PM [facility] BUN 28(H) 5 - 25 mg/dL LAB CHEMISTRY METHOD 05/12/2024 1:22 PM [facility] Creatinine 0.97 0.50 - 1.10 mg/dL LAB CHEMISTRY METHOD 05/12/2024 1:22 PM [facility] eGFR 57(L) >=60 mL/min/1. 73m2 LAB CHEMISTRY METHOD 05/12/2024 1:22 PM [facility] Comment:Calculation based on the??Chronic Kidney Disease Epidemiology Collaboration (CKD-EPI) equation refit??without adjustment for race. BUN/Creatinine Ratio 28.9 LAB CHEMISTRY METHOD 05/12/2024 1:22 PM [facility] Calcium 8.6 8.5 - 10.5 mg/dL LAB CHEMISTRY METHOD 05/12/2024 1:22 PM [facility] Blood Venous blood specimen / Unknown 05/12/2024 5:48 AM EST 05/12/2024 11:28 AM EST us Torrey Kwok MD LAB BLOOD ORDERABLES Final Resul t [facility] [address] [place] [address], * (ABNORMAL) Complete blood count (05/12/2024 5:48 AM EST) WBC 7.5 4.8 - 10.8 K/mcL LAB HEMETOLOGY METHOD 05/12/2024 12:44 PM [facility] RBC 3.30(L) 3.80 - 4.80 M/mcL LAB HEMETOLOGY METHOD 05/12/2024 12:44 PM [facility] Hemoglobin 10.5(L) 11.5 - 16.0 g/dL LAB HEMETOLOGY METHOD 05/12/2024 12:44 PM [facility] Hematocrit 33.5(L) 35.0 - 47.0 % LAB HEMETOLOGY METHOD 05/12/2024 12:44 PM [facility] MCV 100.9(H) 79.0 - 98.0 FL LAB HEMETOLOGY METHOD 05/12/2024 12:44 PM [facility] MCH 31.6 27.0 - 32.0 pcg LAB HEMETOLOGY METHOD 05/12/2024 12:44 PM [facility] MCHC 31.3(L) 32.0 - 37.0 g/dL LAB HEMETOLOGY METHOD 05/12/2024 12:44 PM [facility] RDW 20.0(H) 11.0 - 15.0 % LAB HEMETOLOGY METHOD 05/12/2024 12:44 PM [facility] Platelets 386 130 - 400 K/mcL LAB HEMETOLOGY METHOD 05/12/2024 12:44 PM [facility] MPV 10.3 7.0 - 11.0 FL LAB HEMETOLOGY METHOD 05/12/2024 12:44 PM EST [facility] NRBC 0.0 <1.0 % LAB HEMETOLOGY METHOD 05/12/2024 12:44 PM EST [facility] NRBC Absolute 0.00 <0.10 K/mcL LAB HEMETOLOGY METHOD 05/12/2024 12:44 PM EST [facility] Blood Venous blood specimen / Unknown 05/12/2024 5:48 AM EST 05/12/2024 11:25 AM EST Torrey Kwok MD LAB BLOOD ORDERABLES Final Resul t [facility] [address] [place] [address], documented in this encounter Visit Diagnoses Diagnosis 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
--- OUTSIDE RECORDS SUMMARY | 2024-06-20 15:32 | XMS_ITS | Patient Health Record ---
Author Organization [facility] Address [address] [place] [address] Care Team Providers Care Custom Furrier Name Role Phone Po Monique HODGE Primary Care Provider John Moore Jr Unavailable [phone] Allergies Allergen (clinical drug ingredient) Drug/Non Drug [...] Active Omeprazole 20 TAKE 1 CAPSULE BY [facility] TWICE DAILY for 90 days Active Immunizations Vaccine Route Administration Date Status Comme nts Influenza Unknown 02/08/2016 Administered Influenza Unknown 02/07/2018 Administered Problems Problem Type SNOMED Code ICD Code Onset Dates Problem Status W/U Status Risk Notes Problem 931752696 Gastro-esophagea l reflux disease without esophagitis (K21.9) Active confirmed Problem 46471975 Dysphagia, unspecified type (R13.10) Active confirmed Problem 832573156 Abnormal UGI series (R93.3) Active confirmed Problem 86934617 Hypertension, unspecified type (I10) Active confirmed Encounters Encounter Location Date Provider Diagnosis [facility] [address] [place] [address] 07/09/2023 John Epps Jr Plan Of Treatment Pending Test Test Name Order Date XR GI SERIES 07/20/2016 Insurance Providers Payer Name Payer Address Payer Phone Subscriber Number Group Number Insured Name Patient Relationship to Insured Coverage Start Date Coverage End Date MEDICARE OF [place] [address] [place] [address] [id number] CHARLY SCHWARTZ Self - patient is the insured [employer] ATT[employer] CLAIMS [address] [place] [address] [id number] CHARLY SCHWARTZ Self - patient is the insured Medical (General) History Medical History History ICD Code colonoscopy 03/25/2004 diabetes mellitus osteoporosis Hypothyroidism elevated cholesterol hypertension diverticulosis internal hemorrhoids congestive heart failure urinary incontinence-mild Surgical History Surgery Date(Month/Year) cholecystectomy knee surgery section left hip replacement right knee replacement cardioversion 12/2015
--- OUTSIDE RECORDS SUMMARY | 2024-06-20 15:32 | XMS_ITS | Encounter Summary ---
Author Organization [facility] Address [address] [place] [address] Care Team Providers Care Basketball Referee Name Role Phone Torrey Kwok MD Primary Care Provider [phone] Encounter Details Date Type Department Care Team (Late st Contact Info) Description 05/06/2024 Lab Requisition [facility] - Main Lab [address] [facility] [place] [address] Torrey Kwok MD [address] [place] [address] Type 2 diabetes mellitus without complications (CMS/HCC) [...] LAB CHEMISTRY METHOD 05/07/2024 1:13 PM EST [facility] Potassium 4.1 3.5 - 5.5 mmol/L LAB CHEMISTRY METHOD 05/07/2024 1:13 PM [facility] Chloride 96 96 - 110 mmol/L LAB CHEMISTRY METHOD 05/07/2024 1:13 PM [facility] CO2 26 21 - 32 mmol/L LAB CHEMISTRY METHOD 05/07/2024 1:13 PM [facility] Anion Gap 8 3 - 11 LAB CHEMISTRY METHOD 05/07/2024 1:13 PM [facility] Glucose 271(H) 70 - 100 mg/dL LAB CHEMISTRY METHOD 05/07/2024 1:13 PM [facility] BUN 21 5 - 25 mg/dL LAB CHEMISTRY METHOD 05/07/2024 1:13 PM [facility] Creatinine 0.98 0.50 - 1.10 mg/dL LAB CHEMISTRY METHOD 05/07/2024 1:13 PM [facility] eGFR 56(L) >=60 mL/min/1. 73m2 LAB CHEMISTRY METHOD 05/07/2024 1:13 PM [facility] Comment:Calculation based on the??Chronic Kidney Disease Epidemiology Collaboration (CKD-EPI) equation refit??without adjustment for race. BUN/Creatinine Ratio 21.4 LAB CHEMISTRY METHOD 05/07/2024 1:13 PM [facility] Calcium 9.0 8.5 - 10.5 mg/dL LAB CHEMISTRY METHOD 05/07/2024 1:13 PM [facility] Blood Venous blood specimen / Unknown Venipuncture / Unknown 05/07/2024 8:42 AM EST 05/07/2024 11:51 AM EST us Torrey Kwok MD LAB BLOOD ORDERABLES Final Resul t [facility] [address] [place] [address], * (ABNORMAL) Complete blood count (05/07/2024 8:42 AM EST) WBC 9.1 4.8 - 10.8 K/[facility] LAB HEMETOLOGY METHOD 05/07/2024 12:40 PM [facility] RBC 3.90 3.80 - 4.80 M/[facility] LAB HEMETOLOGY METHOD 05/07/2024 12:40 PM [facility] Hemoglobin 12.4 11.5 - 16.0 g/dL LAB HEMETOLOGY METHOD 05/07/2024 12:40 PM [facility] Hematocrit 38.7 35.0 - 47.0 % LAB HEMETOLOGY METHOD 05/07/2024 12:40 PM [facility] MCV 99.2(H) 79.0 - 98.0 FL LAB HEMETOLOGY METHOD 05/07/2024 12:40 PM [facility] MCH 31.8 27.0 - 32.0 pcg LAB HEMETOLOGY METHOD 05/07/2024 12:40 PM [facility] MCHC 32.0 32.0 - 37.0 g/dL LAB HEMETOLOGY METHOD 05/07/2024 12:40 PM [facility] RDW 19.9(H) 11.0 - 15.0 % LAB HEMETOLOGY METHOD 05/07/2024 12:40 PM [facility] Platelets 384 130 - 400 K/[facility] LAB HEMETOLOGY METHOD 05/07/2024 12:40 PM [facility] MPV 10.7 7.0 - 11.0 FL LAB HEMETOLOGY METHOD 05/07/2024 12:40 PM [facility] NRBC 0.0 <1.0 % LAB HEMETOLOGY METHOD 05/07/2024 12:40 PM [facility] NRBC Absolute 0.00 <0.10 K/[facility] LAB HEMETOLOGY METHOD 05/07/2024 12:40 PM [facility] Blood Venous blood specimen / Unknown Venipuncture / Unknown 05/07/2024 8:42 AM EST 05/07/2024 11:51 AM EST Torrey Kwok MD LAB BLOOD ORDERABLES Final Resul t [facility] [address] [place] [address], documented in this encounter Visit Diagnoses Diagnosis Type 2 diabetes mellitus without complications (CMS/HCC) documented in this encounter Care Teams Basketball Referee Relationship Specialty Start Date End Date Torrey Kwok MD [address] [place] [address] [address] [place] [address] PCP - General Geriatric Medicine 04/25/24 documented as of this encounter
--- OUTSIDE RECORDS SUMMARY | 2024-06-20 15:32 | XMS_ITS | Patient Health Record ---
Author Organization [facility] Address [address] [place] [address] Care Team Providers Care Mortgage Closing Clerk Name Role Phone Monique White Primary Care Provider Arturo Brown Unavailable [phone] Antonio Lewis Unavailable [phone] Allergies Allergen (clinical drug ingredient) Drug/Non Drug [...] Problem Acquired hammer toe of right foot ([id number] ) Other hammer toe(s) (acquired), right foot (M20.41) Active confirmed Problem Acquired hammer toe of left foot (3993902897112205 ) Other hammer toe(s) (acquired), left foot (M20.42) Active confirmed Problem Polyneuropathy due to diabetes mellitus type I (770631520) Type 1 diabetes mellitus with diabetic polyneuropathy (E10.42) Active confirmed Vital Signs Blood pressure diastolic 84 mm Hg 12/04/2023 Height 4 ft 10 in in 02/05/2024 Blood pressure systolic 128 mm Hg 12/04/2023 Weight 129 lbs 02/05/2024 BMI 26.96 kg/m2 02/05/2024 Procedures Procedure Date Ordered Date Performed Result Body Sit e 33430-Ouetjtugs, Toes 06/28/2023 N/A 47927-VWMMVFY NAIL, 6 OR MORE 09/21/2023 N/A 05434-Rgouplwn Plate 09/21/2023 N/A 35960-NFGB SKIN LESIONS, 2 TO 4 09/21/2023 N/A 64936-YERGWOU NAIL, 6 OR MORE 12/04/2023 N/A 04080-JYVO SKIN LESIONS, 2 TO 4 12/04/2023 N/A 97803-AKZINDD NAIL, 6 OR MORE 02/05/2024 N/A 14927-WNZW SKIN LESIONS, 2 TO 4 02/05/2024 N/A Encounters Encounter Location Date Provider Diagnosis [address] [address] 06/28/2023 Antonio Lewis Type 1 diabetes mellitus with diabetic polyneuropathy E10.42 ; Closed fracture of right foot, initial encounter S92.901A ; Pain in right foot M79.671 and Closed nondisplaced fracture of middle phalanx of lesser toe of right foot, initial encounter S92.524A [address] [address] 09/21/2023 Arturo Simon Type 1 diabetes mellitus with diabetic polyneuropathy E10.42 ; Tinea unguium B35.1 and Ingrown nail L60.[address] [address] 12/04/2023 Arturo Simon Type 1 diabetes mellitus with diabetic polyneuropathy E10.42 and Tinea unguium B35.[address] [address] 02/05/2024 Arturo Simon Type 1 diabetes mellitus with diabetic polyneuropathy E10.42 ; Onychomycosis B35.1 ; Other hammer toe(s) (acquired), right foot M20.41 and Other hammer toe(s) (acquired), left foot M20.[address] [address] 08/01/2023 Arturo Simon [address] [address] 05/05/2024 Arturo Simon Assessments Encounter Date Diagnosis (ICD Code) Assessment Notes Treatment Notes Treatment Clinical Notes Section Notes 06/28/2023 Type 1 diabetes mellitus with diabetic polyneuropathy (ICD-10 - E10.42) 06/28/2023 Closed fracture of right foot, initial encounter (ICD-10 - S92.901A) 12/04/2023 Type 1 diabetes mellitus with diabetic polyneuropathy (ICD-10 - E10.42) 12/04/2023 Tinea unguium (ICD-10 - B35.1) 02/05/2024 Type 1 diabetes mellitus with diabetic polyneuropathy (ICD-10 - E10.42) 02/05/2024 Onychomycosis (ICD-10 - B35.1) 09/21/2023 Type 1 diabetes mellitus with diabetic polyneuropathy (ICD-10 - E10.42) 09/21/2023 Tinea unguium (ICD-10 - B35.1) 09/21/2023 Ingrown nail (ICD-10 - L60.0) 02/05/2024 Other hammer toe(s) (acquired), right foot (ICD-10 - M20.41) Patient Educated with: DIABETIC FOOT CARE INSTRUCTIONS. pdf (DIABETIC FOOT CARE INSTRUCTIONS. pdf) 06/28/2023 Pain in right foot (ICD-10 - M79.671) 02/05/2024 Other hammer toe(s) (acquired), left foot (ICD-10 - M20.42) 06/28/2023 Closed nondisplaced fracture of middle phalanx of lesser toe of right foot, initial encounter (ICD-10 - S92.524A) Plan Of Treatment Pending Test Test Name Order Date Hemoglobin A1c 01/05/2015 Hemoglobin A1c 06/23/2014 Glucose Fasting 06/23/2014 X ray : Foot, right 3V 06/28/2023 95284-NKUPKJC NAIL, 6 OR MORE 05/22/2023 35733-ZRNAIKS NAIL, 6 OR MORE 12/12/2022 45944-WQIBCBG NAIL, 6 OR MORE 03/06/2023 89712-EMSCPGS NAIL, 6 OR MORE 01/10/2022 22777-HWTOQZV NAIL, 6 OR MORE 04/18/2022 93387-LTLMLAQ NAIL, 6 OR MORE 07/11/2022 63600-GSAECEX NAIL, 6 OR MORE 10/03/2022 30169-TJFIOEW NAIL, 6 OR MORE 01/06/2014 23868-UMSICFT NAIL, 6 OR MORE 06/23/2014 07755-XYUWRPF NAIL, 6 OR MORE 01/05/2015 20172-CGYTPWA NAIL, 6 OR MORE 09/21/2023 70961-VYMSCJG NAIL, 6 OR MORE 12/04/2023 32123-VGFZVTJ NAIL, 6 OR MORE 02/05/2024 71837-ZILGFTG NAIL, 6 OR MORE 09/16/2013 53338-CRIMMYE NAIL, 6 OR MORE 03/11/2013 07515-RBPHDLU NAIL, 6 OR MORE 12/10/2012 74802-NDDRBGW NAIL, 6 OR MORE 08/27/2012 68422-ZZSLDVZ NAIL, 6 OR MORE 05/31/2012 16693-BWCMWAJ NAIL, 6 OR MORE 03/05/2012 98664-PHEQTIY NAIL, 6 OR MORE 09/12/2011 73212-WIJKLXH NAIL, 6 OR MORE 11/11/2019 57060-ICXAWIV NAIL, 6 OR MORE 12/27/2010 16355-CFLUKSW NAIL, 6 OR MORE 03/21/2011 96384-EDUVIYV NAIL, 6 OR MORE 06/13/2011 80088-ZHNAVMO NAIL, 6 OR MORE 12/19/2011 01184-DLSYPKO NAIL, 6 OR MORE 06/10/2013 79364-XNYBZYD NAIL, 6 OR MORE 10/06/2014 91988-CWRDXQV NAIL, 6 OR MORE 03/17/2014 66286-KHHPDQJ NAIL, 6 OR MORE 04/20/2015 25276-HBQGJLL NAIL, 6 OR MORE 07/20/2015 78245-QBTJLDL NAIL, 6 OR MORE 10/26/2015 29711-KYNEVUL NAIL, 6 OR MORE 01/25/2016 26632-PULIJBU NAIL, 6 OR MORE 05/23/2016 95313-JWZQWRU NAIL, 6 OR MORE 08/25/2016 39779-MPYTLOO NAIL, 6 OR MORE 12/05/2016 48220-ICKKEND NAIL, 6 OR MORE 03/06/2017 99835-VGDUYET NAIL, 6 OR MORE 07/10/2017 75945-EHQJHMI NAIL, 6 OR MORE 10/09/2017 75781-MFKIAWD NAIL, 6 OR MORE 01/08/2018 05655-UBXRLFA NAIL, 6 OR MORE 04/30/2018 59625-XDMLNDL NAIL, 6 OR MORE 07/30/2018 98984-UGWXNJF NAIL, 6 OR MORE 10/29/2018 45570-GKDWNIQ NAIL, 6 OR MORE 02/04/2019 04525-GFXRHOP NAIL, 6 OR MORE 05/13/2019 85483-PZFPMMW NAIL, 6 OR MORE 08/12/2019 03298-MLUHVXW NAIL, 6 OR MORE 02/17/2020 08777-BGOVSJX NAIL, 6 OR MORE 05/25/2020 08560-QRYXAZG NAIL, 6 OR MORE 08/24/2020 17182-MPVHRQE NAIL, 6 OR MORE 11/23/2020 45078-MQCTWUI NAIL, 6 OR MORE 02/22/2021 56606-FXDPPZF NAIL, 6 OR MORE 05/24/2021 94343-KCCRODF NAIL, 6 OR MORE 10/11/2021 62091-Vyefoqid Plate 12/05/2016 75768-Ebyhccqj Plate 07/10/2017 84343-Eavxylvy Plate 07/20/2015 37729-Lviqdkii Plate 03/17/2014 36484-Zdeghtgy Plate 10/06/2014 82557-Gtnuvxif Plate 06/13/2011 51129-Uxsxvcip Plate 03/21/2011 89410-Xqfzzyug Plate 05/31/2012 91931-Kplemmlg Plate 08/27/2012 28730-Jqtwsxbk Plate 09/16/2013 68067-Jrqdcjvn Plate 09/21/2023 64788-Vkvyardb Plate 01/05/2015 48534-Nrdpuitz Plate 01/06/2014 95680-Xagrxgrq Plate Each Additional 67475-Fcvphxcf Plate Each Additional 01/2014 11735-Isqhpske Plate Each Additional 49496 I&D ABSCESS- SIMPLE,SINGLE 012 32781 I&D ABSCESS- SIMPLE,SINGLE 021 26227 I&D ABSCESS- SIMPLE,SINGLE 011 95300-SYQF SKIN LESIONS, 2 TO 4 10/07/19 15 29892-TOQG SKIN LESIONS, 2 TO 4 04/20/19 16 28889-WAND SKIN LESIONS, 2 TO 4 06/11/19 14 59004-SOQH SKIN LESIONS, 2 TO 4 12/19/19 12 01020-RGTA SKIN LESIONS, 2 TO 4 03/17/20 14 70335-KHRI SKIN LESIONS, 2 TO 4 07/20/19 16 11430-KUPH SKIN LESIONS, 2 TO 4 01/25/20 16 42913-DFQH SKIN LESIONS, 2 TO 4 10/26/19 16 32905-THEO SKIN LESIONS, 2 TO 4 07/11/19 18 93492-XQYO SKIN LESIONS, 2 TO 4 03/06/20 17 89162-OBUZ SKIN LESIONS, 2 TO 4 12/06/19 17 84340-LXEB SKIN LESIONS, 2 TO 4 05/23/19 17 11513-UDDF SKIN LESIONS, 2 TO 4 08/26/19 17 79815-PKSN SKIN LESIONS, 2 TO 4 10/10/19 18 65071-XNAO SKIN LESIONS, 2 TO 4 04/30/19 19 05245-RLCZ SKIN LESIONS, 2 TO 4 01/09/20 18 66321-YUVS SKIN LESIONS, 2 TO 4 05/13/19 80149-GZPV SKIN LESIONS, 2 TO 4 02/05/20 19 47032-PKCZ SKIN LESIONS, 2 TO 4 10/30/19 19 11047-TYHC SKIN LESIONS, 2 TO 4 07/31/19 12030-AKRW SKIN LESIONS, 2 TO 4 10/12/19 62594-SGJU SKIN LESIONS, 2 TO 4 05/24/19 74346-CUTY SKIN LESIONS, 2 TO 4 02/23/20 13993-VWLT SKIN LESIONS, 2 TO 4 11/24/19 08952-ZXHL SKIN LESIONS, 2 TO 4 08/25/19 27750-JRMC SKIN LESIONS, 2 TO 4 05/25/19 83492-TQSV SKIN LESIONS, 2 TO 4 02/17/20 31456-BDBU SKIN LESIONS, 2 TO 4 08/12/19 94984-GGAW SKIN LESIONS, 2 TO 4 09/21/19 24 35082-IWRS SKIN LESIONS, 2 TO 4 02/05/20 24 27343-NWRH SKIN LESIONS, 2 TO 4 12/04/19 24 68870-WXDU SKIN LESIONS, 2 TO 4 01/07/20 14 33725-YHGF SKIN LESIONS, 2 TO 4 01/06/20 15 68910-GNQZ SKIN LESIONS, 2 TO 4 06/24/19 15 49976-BPIH SKIN LESIONS, 2 TO 4 10/04/19 23 67710-HOHG SKIN LESIONS, 2 TO 4 07/12/19 16231-CFGF SKIN LESIONS, 2 TO 4 04/18/19 65829-RRPT SKIN LESIONS, 2 TO 4 01/11/20 22760-QQAO SKIN LESIONS, 2 TO 4 03/06/20 22932-QXCS SKIN LESIONS, 2 TO 4 12/13/19 48202-RBDQ SKIN LESIONS, 2 TO 4 05/22/19 65616-YWLE SKIN LESIONS, 2 TO 4 11/11/19 97481-MRGH SKIN LESIONS, 2 TO 4 08/28/19 13 84310-NXLV SKIN LESIONS, 2 TO 4 03/05/20 12 78393-UKWN SKIN LESIONS, 2 TO 4 05/31/19 13 16217-IZJH SKIN LESIONS, 2 TO 4 09/17/19 14 67850-FVCJ SKIN LESIONS, 2 TO 4 12/11/19 13 83356-IPIQ SKIN LESIONS, 2 TO 4 03/11/20 13 46871-SPOF SKIN LESION 09/12/2011 17227-HPEZ SKIN LESION 03/21/2011 48396-CNFP SKIN LESION 06/13/2011 07985-Kriroyiqk, Toes 06/28/2023 Next Appt Details Provider Name:Arturo Simon , 08/15/2024 10:15:00 AM, [address] [place], [address], Insurance Providers Payer Name Payer Address Payer Phone Subscriber Number Group Number Insured Name Patient Relationship to Insured Coverage Start Date Coverage End Date Medicare National Govt [facility] [address] [place] [address] [id number] [place], [place] Self - patient is the insured 2 [employer] [address] [place] [address] [phone] [id number] [place], [place] Self - patient is the insured [...] Date(Month/Year) [facility]23 [facility] 6 [facility] cath put in 04/2015
--- OUTSIDE RECORDS SUMMARY | 2024-06-20 15:32 | XMS_ITS | Clinical Summary ---
Author Organization [address] Address [address] [place] [address] Phone Care Team Providers Care Registered Art Therapist Name Role Phone Torrey Kwok MD Primary Care Provider [phone] Encounters Date Type Department Care Team Description 06/20/2024 Lab Requisition [facility] Lab [address] [place] [phone] Torrey Kwok MD Essential (primary) hypertension; Type 2 diabetes mellitus without complications (CMS/HCC) 06/14/2024 Lab Requisition [facility] Lab [address] [place] [phone] Torrey Kwok MD Type 2 diabetes mellitus with diabetic chronic kidney disease (CMS/HCC); Essential (primary) hypertension; Heart failure, unspecified (CMS/HCC); 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) 06/07/2024 Lab Requisition [facility] Lab [address] [place] [phone] Torrey Kwok MD Type 2 diabetes mellitus with diabetic chronic kidney disease (CMS/HCC); Essential (primary) hypertension; Heart failure, unspecified (CMS/HCC); 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) 06/07/2024 Lab Requisition [facility] Lab [address] [place] [phone] Torrey Kwok MD Heart failure, unspecified (CMS/HCC); Type 2 diabetes mellitus with diabetic chronic kidney disease (CMS/HCC); Chronic kidney disease, stage 3 unspecified (CMS/HCC); Vitamin D deficiency, unspecified; Essential (primary) hypertension 06/02/2024 Lab Requisition [facility] Lab [address] [place] [phone] Torrey Kwok MD Chronic diastolic (congestive) heart failure ([facility]/HCC); Chronic kidney disease, stage 3 unspecified ([facility]/HCC) 05/31/2024 Lab Requisition [facility] Lab [address] [place] [phone] Torrey Kwok MD Type 2 diabetes mellitus with diabetic chronic kidney disease ([facility]/HCC); Essential (primary) hypertension; Heart failure, unspecified ([facility]/HCC); 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 without macular edema ([facility]/HCC) 05/30/2024 Lab Requisition [facility] Lab [address] [place] [phone] Torrey Kwok MD Essential (primary) hypertension; Type 2 diabetes mellitus without complications ([facility]/HCC) 05/24/2024 Lab Requisition [facility] Lab [address] [place] [phone] Torrey Kwok MD Type 2 diabetes mellitus with diabetic chronic kidney disease ([facility]/HCC); Essential (primary) hypertension; Heart failure, unspecified ([facility]/HCC); 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 ([facility]/HCC) 05/16/2024 Lab Requisition [facility] Lab [address] [place] [phone] Torrey Kwok MD Heart failure, unspecified ([facility]/HCC); Essential (primary) hypertension; Type 2 diabetes mellitus with diabetic chronic kidney disease ([facility]/HCC) 05/09/2024 Lab Requisition [facility] Lab [address] [place] [phone] Torrey Kwok MD 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 ([facility]/HCC); Heart failure, unspecified ([facility]/HCC); Essential (primary) hypertension; Type 2 diabetes mellitus with diabetic chronic kidney disease ([facility]/HCC) 05/06/2024 Lab Requisition [facility] Lab [address] [place] [phone] Torrey Kwok MD Type 2 diabetes mellitus without complications ([facility]/HCC) 05/05/2024 Lab Requisition [facility] Lab [address] [place] [phone] Torrey Kwok MD Chronic kidney disease, stage 3 unspecified ([facility]); Type 2 diabetes mellitus with diabetic chronic kidney disease ([facility]/HCC) 05/01/[address] [facility] Lab [address] [place] [phone] Torrey Kwok MD Type 2 diabetes mellitus without complications ([facility]/HCC) 04/30/2024 Lab Requisition [facility] Lab [address] [place] [phone] Torrey Kwok MD Type 2 diabetes mellitus without complications ([facility]/HCC) 04/29/2024 Lab Requisition [facility] Lab [address] [place] [phone] Torrey Kwok MD Dysuria 04/25/2024 Lab Requisition [facility] Lab [address] [place] [phone] Torrey Kwok MD Vitamin D deficiency, unspecified; 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 ([facility]/HCC); Heart failure, unspecified ([facility]/HCC); Essential (primary) hypertension from Last 3 Months [...] 10/23/2024 04/25/2024 Hypertension/CHF/CAD Annual BMP Blood Test 06/16/2025 06/20/2024, 06/16/2024, 06/09/2024, Additional history exists HIB Vaccines Aged Out [...] Associated Diagnosis Comments BASIC METABOLIC PANEL Routine 06/20/2024 6:10 AM EDT Essential (primary) hypertension Type 2 diabetes mellitus without complications (CMS/HCC) COMPLETE BLOOD COUNT Routine 06/20/2024 6:10 AM EDT Essential (primary) hypertension Type 2 diabetes mellitus without complications (CMS/HCC) BASIC METABOLIC PANEL Routine 06/16/2024 5:17 AM EDT Type 2 diabetes mellitus with diabetic chronic kidney disease (CMS/HCC) Essential (primary) hypertension Heart failure, unspecified (CMS/HCC) 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 WBC 6.5 4.8 - 10.8 K/mcL LAB HEMETOLOGY METHOD 06/20/2024 11:08 AM EDT [facility] RBC 3.70(L) 3.80 - 4.80 M/mcL LAB HEMETOLOGY METHOD 06/20/2024 11:08 AM EDT [facility] Hemoglobin 12.0 11.5 - 16.0 g/dL LAB HEMETOLOGY METHOD 06/20/2024 11:08 AM EDT [facility] Hematocrit 37.1 35.0 - 47.0 % LAB HEMETOLOGY METHOD 06/20/2024 11:08 AM EDT [facility] MCV 100.5(H) 79.0 - 98.0 FL LAB HEMETOLOGY METHOD 06/20/2024 11:08 AM EDT [facility] MCH 32.5(H) 27.0 - 32.0 pcg LAB HEMETOLOGY METHOD 06/20/2024 11:08 AM EDT [facility] MCHC 32.3 32.0 - 37.0 g/dL LAB HEMETOLOGY METHOD 06/20/2024 11:08 AM EDT [facility] RDW 18.3(H) 11.0 - 15.0 % LAB HEMETOLOGY METHOD 06/20/2024 11:08 AM EDT [facility] Platelets 313 130 - 400 K/mcL LAB HEMETOLOGY METHOD 06/20/2024 11:08 AM EDT [facility] MPV 10.8 7.0 - 11.0 FL LAB [facility] NRBC 0.0 <1.0 % LAB HEMETOLOGY METHOD 06/20/2024 11:08 AM EDT [facility] NRBC Absolute 0.00 <0.10 K/mcL LAB HEMETOLOGY METHOD 06/20/2024 11:08 AM EDT [facility] Blood Venous blood specimen / Unknown Venipuncture / Unknown 06/20/2024 6:10 AM EDT 06/20/2024 10:40 AM EDT us Torrey Kwok MD LAB BLOOD ORDERABLES Final Resul t [facility] [address] [place] [address], [place] [phone] * (ABNORMAL) Basic metabolic panel (06/20/2024 6:10 AM EDT) Only the most recent of12 resultswithin the time period is included. Sodium 138 133 - 145 mmol/L LAB CHEMISTRY METHOD 06/20/2024 11:38 AM [facility] Potassium 4.1 3.5 - 5.5 mmol/L LAB CHEMISTRY METHOD 06/20/2024 11:38 AM [facility] Chloride 104 96 - 110 mmol/L LAB CHEMISTRY METHOD 06/20/2024 11:38 AM [facility] CO2 29 21 - 32 mmol/L LAB CHEMISTRY METHOD 06/20/2024 11:38 AM [facility] Anion Gap 5 3 - 11 LAB CHEMISTRY METHOD 06/20/2024 11:38 AM [facility] Glucose 53(L) 70 - 100 mg/dL LAB CHEMISTRY METHOD 06/20/2024 11:38 AM [facility] BUN 39(H) 5 - 25 mg/dL LAB CHEMISTRY METHOD 06/20/2024 11:38 AM [facility] Creatinine 0.97 0.50 - 1.10 mg/dL LAB CHEMISTRY METHOD 06/20/2024 11:38 AM [facility] eGFR 57(L) >=60 mL/min/1. 73m2 LAB CHEMISTRY METHOD 06/20/2024 11:38 AM [facility] Comment:Calculation based on the??Chronic Kidney Disease Epidemiology Collaboration (CKD-EPI) equation refit??without adjustment for race. BUN/Creatinine Ratio 40.2 LAB CHEMISTRY METHOD 06/20/2024 11:38 AM [facility] Calcium 9.2 8.5 - 10.5 mg/dL LAB CHEMISTRY METHOD 06/20/2024 11:38 AM [facility] Blood Venous blood specimen / Unknown Venipuncture / Unknown 06/20/2024 6:10 AM EDT 06/20/2024 10:40 AM EDT us Torrey Kwok MD LAB BLOOD ORDERABLES Final Resul t [facility] [address] [place] [address], [place] [phone] * Vitamin D 25 hydroxy (06/07/2024 6:36 AM EST) Only the most recent of2 resultswithin the time period is included. Vit D, 25-Hydroxy 41.4 30.0 - 80.0 ng/mL LAB CHEMISTRY METHOD 06/07/2024 1:29 PM EST [facility] Blood Venous blood specimen / Unknown Venipuncture / Unknown 06/07/2024 6:36 AM EST 06/07/2024 9:58 AM EST us Torrey Kwok MD LAB BLOOD ORDERABLES Final Resul t Performing Organization Address [facility]/ZIP Co de Phone Number [facility] [address] [place] [address], [place] [phone] * Folate (06/07/2024 6:36 AM EST) Only the most recent of2 resultswithin the time period is included. Folate 9.8 2.8 - 17.0 ng/ml LAB CHEMISTRY METHOD 06/07/2024 12:13 PM EST [facility] Blood Venous blood specimen / Unknown Venipuncture / Unknown 06/07/2024 6:36 AM EST 06/07/2024 9:58 AM EST us Torrey Kwok MD LAB BLOOD ORDERABLES Final Resul t Performing Organization Address City/[facility]/ZIP Co de Phone Number [facility] [address] [place] [address], [place] [phone] * (ABNORMAL) Vitamin B12 (06/07/2024 6:36 AM EST) Only the most recent of2 resultswithin the time period is included. [facility] Vitamin B-12 1,072(H) 250 - 900 pcg/mL LAB CHEMISTRY METHOD 06/07/2024 12:13 PM EST [facility] Blood Venous blood specimen / Unknown Venipuncture / Unknown 06/07/2024 6:36 AM EST 06/07/2024 9:58 AM EST us Torrey Kwok MD LAB BLOOD ORDERABLES Final Resul t [facility] [address] [place] [address], [place] [phone] * (ABNORMAL) B-type natriuretic peptide (05/26/2024 5:59 AM EST) [facility] BNP 320(H) <=100 pcg/mL LAB CHEMISTRY METHOD 05/26/2024 1:35 PM EST [facility] Blood Venous blood specimen / Unknown Venipuncture / Unknown 05/26/2024 5:59 AM EST 05/26/2024 11:00 AM EST us Torrey Kwok MD LAB BLOOD ORDERABLES Final Resul t [facility] [address] [place] [address], [place] [phone] * (ABNORMAL) Comprehensive metabolic panel (05/26/2024 5:59 AM EST) Only the most recent of2 resultswithin the time period is included. [facility] Sodium 141 133 - 145 mmol/L LAB CHEMISTRY METHOD 05/26/2024 11:56 AM EST [facility] Potassium 3.5 3.5 - 5.5 mmol/L LAB CHEMISTRY METHOD 05/26/2024 11:56 AM [facility] Chloride 101 96 - 110 mmol/L LAB CHEMISTRY METHOD 05/26/2024 11:56 AM [facility] CO2 26 21 - 32 mmol/L LAB CHEMISTRY METHOD 05/26/2024 11:56 AM [facility] Anion Gap 14(H) 3 - 11 LAB CHEMISTRY METHOD 05/26/2024 11:56 AM [facility] Glucose 200(H) 70 - 100 mg/dL LAB CHEMISTRY METHOD 05/26/2024 11:56 AM [facility] BUN 35(H) 5 - 25 mg/dL LAB CHEMISTRY METHOD 05/26/2024 11:56 AM [facility] Creatinine 1.16(H) 0.50 - 1.10 mg/dL LAB CHEMISTRY METHOD 05/26/2024 11:56 AM [facility] eGFR 46(L) >=60 mL/min/1. 73m2 LAB CHEMISTRY METHOD 05/26/2024 11:56 AM [facility] Comment:Calculation based on the??Chronic Kidney Disease Epidemiology Collaboration (CKD-EPI) equation refit??without adjustment for race. BUN/Creatinine Ratio 30.2 LAB CHEMISTRY METHOD 05/26/2024 11:56 AM [facility] Calcium 8.9 8.5 - 10.5 mg/dL LAB CHEMISTRY METHOD 05/26/2024 11:56 AM [facility] AST (SGOT) 21 10 - 42 unit/L LAB CHEMISTRY METHOD 05/26/2024 11:56 AM [facility] ALT (SGPT) 20 10 - 60 unit/L LAB CHEMISTRY METHOD 05/26/2024 11:56 AM [facility] Alkaline Phosphatase 146(H) 42 - 121 unit/L LAB CHEMISTRY METHOD 05/26/2024 11:56 AM [facility] Total Protein 6.8 6.0 - 8.0 g/dL LAB CHEMISTRY METHOD 05/26/2024 11:56 AM [facility] Albumin 3.6 3.2 - 5.0 g/dL LAB CHEMISTRY METHOD 05/26/2024 11:56 AM [facility] Total Bilirubin 0.6 0.0 - 1.4 mg/dL LAB CHEMISTRY METHOD 05/26/2024 11:56 AM [facility] Blood Venous blood specimen / Unknown Venipuncture / Unknown 05/26/2024 5:59 AM EST 05/26/2024 11:00 AM EST us Torrey Kwok MD LAB BLOOD ORDERABLES Final Resul t [facility] [address] [place] [address], [place] [phone] * (ABNORMAL) Urinalysis with reflex microscopic and culture (04/28/2024 12:15 PM EST) Specific [place] Urine 1.021 1.003 - 1.030 LAB URINALYSIS [...] MD LAB URINE ORDERABLES Final Resul t [facility] [address] [place] [address], [place] [phone] * Frost urine culture tube (04/28/2024 12:15 PM EST) Extra Tube Hold for add-ons. 04/29/2024 11:01 AM EST [facility] Comment:Auto resulted. Urine Urine specimen obtained by clean catch procedure / Unknown 04/28/2024 12:15 PM EST 04/29/2024 9:53 AM EST us Torrey Kwok MD LAB URINE ORDERABLES Final Resul t [facility] [address] [place] [address], [place] [phone] * (ABNORMAL) Culture urine (04/28/2024 12:15 PM [...] ORDER GENET Final Result Performing Organization Address City/[facility]/ZIP Co de Phone Number [facility] [address] [place] [address], [place] [phone] * Thyroid stimulating hormone (04/25/2024 5:49 AM EST) TSH 3.04 0.40 - 4.00 mcIU/mL LAB CHEMISTRY METHOD 04/25/2024 10:35 AM EST [facility] Blood Venous blood specimen / Unknown Venipuncture / Unknown 04/25/2024 5:49 AM EST 04/25/2024 9:21 AM EST us Torrey Kwok MD LAB BLOOD ORDERABLES Final Resul t Performing Organization Address [facility] Co de Phone Number [facility] [address] [place] [address], [place] [phone] * (ABNORMAL) Hemoglobin A1c (04/25/2024 5:49 AM EST) Pathologist [facility] Hemoglobin A1C 8.7(H) <6.5 % LAB CHEMISTRY METHOD 04/25/2024 1:33 PM EST [facility] Mean Bld Glu Estim. 203 mg/dL LAB CHEMISTRY METHOD 04/25/2024 1:33 PM EST [facility] Blood Venous blood specimen / Unknown Venipuncture / Unknown 04/25/2024 5:49 AM EST 04/25/2024 9:21 AM EST us Torrey Kwok MD LAB BLOOD ORDERABLES Final Resul t Performing Organization Address [facility]/ZIP Co de Phone Number [facility] [address] [place] [address], [place] [phone] from Last 3 Months Insurance MEDICARE [facility] Care Teams Registered Art Therapist Relationship Specialty Start Date End Date Torrey Kwok MD [address] [place] [address] [address] [place] [address] PCP - General Geriatric Medicine 04/25/24
--- OUTSIDE RECORDS SUMMARY | 2024-06-20 15:32 | XMS_ITS ---
Author Organization [facility] Address [address] [place] [address] Care Team Providers Care Rubber Goods Tester Name Role Phone Monique White Primary Care Provider Arturo Brown [phone] REASON FOR VISIT Cancel Encounters Encounter Location Date Provider Diagnosis [address] [address] 05/05/2024 Arturo Simon Plan Of Treatment Next Appt Details Provider Name:Arturo Simon , 08/15/2024 10:15:00 AM, [address] [place], [address], Progress Notes * Gerri SCHWARTZ RDOB:[birth year] (88 yo F)Acc No.[id number]:05/05/2024 Patient:?Gerri SCHWARTZ :1935???Age:88 Y???Sex:Female Address:[place], [address] * true * Date:? Generated for Printi dontae/Lee/eTransmitting on:?06/20/2024 03:32 PM EDT
== END 2024-06-20 14:26 | disposition home or self-care (01) ==
LOC: HO.HCS 13:48
PROVIDERS: PCP Internal Medicine; Visit Provider Internal Medicine
DX: I50.42 Chronic combined systolic (congestive) and diastolic (congestive) heart failure (principal); I25.10 Atherosclerotic heart disease of native coronary artery without angina pectoris; I48.19 Other persistent atrial fibrillation; I10 Essential (primary) hypertension; E87.5 Hyperkalemia
CPT/HCPCS: 99214; G2211

== ENCOUNTER → 2024-06-20 13:48 | Outpatient (BNVA) | payer MEDICARE, SELFPAY | PROVIDERS: PCP Internal Medicine; Visit Provider Internal Medicine | DX: I11.0 Hypertensive heart disease with heart failure (principal); I25.10 Atherosclerotic heart disease of native coronary artery without angina pectoris; I50.42 Chronic combined systolic (congestive) and diastolic (congestive) heart failure; I48.19 Other persistent atrial fibrillation; E78.5 Hyperlipidemia, unspecified | CPT/HCPCS: 99212 ==

== ENCOUNTER 2024-07-09 08:43 | Outpatient (REF) | payer MEDICARE, SELFPAY ==
--- NOTE | ~2024-07-09 | XR_ITS ---
EXAMINATION: XR FEMUR, RIGHT CLINICAL INFORMATION: S72.90XA - Unspecified fracture of unspecified femur, initial encounter ... COMPARISON: Numerous priors dating back to 04/19/2024. Most recently 05/28/2024. TECHNIQUE: AP and lateral views of the right femur were obtained. FINDINGS: Crosstable lateral views are extremely limited. Redemonstration of intramedullary karen and femoral head compression screw transfixing a mildly displaced intertrochanteric fracture of the right hip. Fracture lines have become sclerotic, and there is marginal callus identified indicating healing. The hardware is intact, well seated, in anatomic alignment, without periprosthetic abnormality. Total right knee arthroplasty in place. Tibial and femoral components are intact, well seated, in anatomic alignment. No periprosthetic complication. No knee joint effusion. There is mild diffuse osteopenia. No suspicious bone lesions or acute fractures. Soft tissues demonstrate diffuse vascular calcifications. XR/XR femur RT 2V IMPRESSION: 1. Healing fixated right intertrochanteric hip fracture, in anatomic alignment. No periprosthetic complication. 2. Total right knee arthroplasty without complication. 3. Osteopenia. 4. Diffuse vascular calcifications. Electronically signed by: Narinder Rose MD 07/10/2024 08:34 AM EDT
--- OUTSIDE RECORDS SUMMARY | 2024-07-09 09:12 | XMS_ITS | Encounter Summary ---
Author Organization [facility] Address [address] [place] [address] Phone Care Team Providers Care Messenger Floorperson Name Role Phone Monique White MD Primary Care Provider [phone] Encounter Details Date Type Department Care Team (Late st Contact Info) Description 06/07/2021 Telephone [facility] [address] [place] [address] Sohail Penaloza MD Social History [...] with you. Please call her back at [phone] Thank you documented in this encounter Plan of Treatment Not on file documented as of this encounter Visit Diagnoses Not on filedocumented in this encounter Care Teams Messenger Floorperson Relationship Specialty Start Date End Date Monique White MD [facility] [address] [place] PCP - General Internal Medicine 03/11/21 documented as of this encounter
--- OUTSIDE RECORDS SUMMARY | 2024-07-09 09:12 | XMS_ITS | Encounter Summary ---
Author Organization [facility] Address [address] [place] [address] Care Team Providers Care Conche Operator Name Role Phone Torrey Kwok MD Primary Care Provider [phone] Encounter Details Date Type Department Care Team (Late st Contact Info) Description 04/29/2024 Lab Requisition [facility] [address] [facility] [place] [address] Torrey Kwok MD [address] [place] [address] Dysuria Social History Tobacco Use Types Packs/Day [...] Escherichia coli(A) ANDRE 05/01/2024 11:04 AM EST [facility] Urine Urine specimen from [...] MICROBIOLOGY - GENERAL ORDER GENET Final Result [facility] [address] [place] [address], * Frost urine culture tube (04/28/2024 12:15 PM EST) Extra Tube Hold for add-ons. 04/29/2024 11:01 AM EST [facility] Comment:Auto resulted. Urine Urine specimen obtained by clean catch procedure / Unknown 04/28/2024 12:15 PM EST 04/29/2024 9:53 AM EST us Torrey Kwok MD LAB URINE ORDERABLES Final Resul t [facility] [address] [place] [address], * (ABNORMAL) Urinalysis with reflex microscopic and culture (04/28/2024 12:15 PM EST) Specific [place] Urine 1.021 1.003 - 1.030 LAB URINALYSIS [...] MD LAB URINE ORDERABLES Final Resul t [facility] [address] [place] [address], documented in this encounter Visit Diagnoses Diagnosis Dysuria documented in this encounter Care Teams Conche Operator Relationship Specialty Start Date End Date Torrey Kwok MD [address] [place] [address] [address] [place] [address] PCP - General Geriatric Medicine 04/25/24 documented as of this encounter
--- OUTSIDE RECORDS SUMMARY | 2024-07-09 09:12 | XMS_ITS | Encounter Summary ---
Author Organization [facility] Address [address] [place] [address] Care Team Providers Care Slice Plug Cutter Operator Helper Name Role Phone Torrey Kwok MD Primary Care Provider [phone] Encounter Details Date Type Department Care Team (Late st Contact Info) Description 06/14/2024 Lab Requisition [facility] - Main Lab 299 [facility] [place] [address] Torrey Kwok MD [address] [place], [place] [id number] Type 2 diabetes mellitus with diabetic chronic [...] mmol/L LAB CHEMISTRY METHOD 06/16/2024 11:[address] [facility] Potassium 4.2 3.5 - 5.5 mmol/L LAB CHEMISTRY METHOD 06/16/2024 11:[address] [facility] Chloride 103 96 - 110 mmol/L LAB CHEMISTRY METHOD 06/16/2024 11:[address] [facility] CO2 26 21 - 32 mmol/L LAB CHEMISTRY METHOD 06/16/2024 11:[address] [facility] Anion Gap 10 3 - 11 LAB CHEMISTRY METHOD 06/16/2024 11:[address] [facility] Glucose 319(H) 70 - 100 mg/dL LAB CHEMISTRY METHOD 06/16/2024 11:[address] [facility] BUN 26(H) 5 - 25 mg/dL LAB CHEMISTRY METHOD 06/16/2024 11:[address] [facility] Creatinine 0.97 0.50 - 1.10 mg/dL LAB CHEMISTRY METHOD 06/16/2024 11:[address] [facility] eGFR 57(L) >=60 mL/min/1. 73m2 LAB CHEMISTRY METHOD 06/16/2024 11:[address] [facility] Comment:Calculation based on the??Chronic Kidney Disease Epidemiology Collaboration (CKD-EPI) equation refit??without adjustment for race. BUN/Creatinine Ratio 26.8 LAB CHEMISTRY METHOD 06/16/2024 11:[address] [facility] Calcium 8.8 8.5 - 10.5 mg/dL LAB CHEMISTRY METHOD 06/16/2024 11:[address] [facility] Blood Venous blood specimen / Unknown Venipuncture / Unknown 06/16/2024 5:17 AM EDT 06/16/2024 10:33 AM EDT Torrey Kwok MD LAB BLOOD ORDERABLES Final Resul t [facility] [address] [place] [address], * (ABNORMAL) Complete blood count (06/16/2024 5:17 AM EDT) [facility] WBC 6.8 4.8 - 10.8 K/mcL LAB HEMETOLOGY METHOD 06/16/2024 11:13 AM EDT [facility] RBC 3.40(L) 3.80 - 4.80 M/mcL LAB HEMETOLOGY METHOD 06/16/2024 11:[address] [facility] Hemoglobin 10.9(L) 11.5 - 16.0 g/dL LAB HEMETOLOGY METHOD 06/16/2024 11:[address] [facility] Hematocrit 34.2(L) 35.0 - 47.0 % LAB HEMETOLOGY METHOD 06/16/2024 11:[address] [facility] MCV 101.2(H) 79.0 - 98.0 FL LAB HEMETOLOGY METHOD 06/16/2024 11:[address] [facility] MCH 32.2(H) 27.0 - 32.0 pcg LAB HEMETOLOGY METHOD 06/16/2024 11:[address] [facility] MCHC 31.9(L) 32.0 - 37.0 g/dL LAB HEMETOLOGY METHOD 06/16/2024 11:[address] [facility] RDW 18.4(H) 11.0 - 15.0 % LAB HEMETOLOGY METHOD 06/16/2024 11:[address] [facility] Platelets 326 130 - 400 K/mcL LAB HEMETOLOGY METHOD 06/16/2024 11:13 AM EDT [facility] MPV 10.5 7.0 - 11.0 FL LAB HEMETOLOGY METHOD 06/16/2024 11:13 AM EDT [facility] NRBC 0.0 <1.0 % LAB HEMETOLOGY METHOD 06/16/2024 11:13 AM EDT [facility] NRBC Absolute 0.00 <0.10 K/mcL LAB HEMETOLOGY METHOD 06/16/2024 11:13 AM EDT [facility] Blood Venous blood specimen / Unknown Venipuncture / Unknown 06/16/2024 5:17 AM EDT 06/16/2024 10:36 AM EDT us Torrey Kwok MD LAB BLOOD ORDERABLES Final Resul t [facility] [address] [place] [address], documented in this encounter Visit Diagnoses Diagnosis Type 2 diabetes mellitus with diabetic chronic kidney disease (CMS/HCC) Essential (primary) hypertension Unspecified essential hypertension Heart failure, unspecified (CMS/HCC) Heart failure, unspecified 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
--- OUTSIDE RECORDS SUMMARY | 2024-07-09 09:12 | XMS_ITS | Encounter Summary ---
Author Organization [facility] Address [address] [place] [address] Care Team Providers Care Editorial Intern Name Role Phone Torrey Kwok MD Primary Care Provider [phone] Encounter Details Date Type Department Care Team (Late st Contact Info) Description 04/30/2024 Lab Requisition [facility] - Main Lab 299 [facility] [place] [address] Torrey Kwok MD [address] [place] [address] Type 2 diabetes mellitus without complications (CMS/HCC) [...] AM EST) WBC 6.6 4.8 - 10.8 K/[facility] LAB HEMETOLOGY METHOD 04/30/2024 2:51 PM EST [facility] RBC 3.40(L) 3.80 - 4.80 M/[facility] LAB HEMETOLOGY METHOD 04/30/2024 2:51 PM EST [facility] Hemoglobin 10.7(L) 11.5 - 16.0 g/dL LAB HEMETOLOGY METHOD 04/30/2024 2:51 PM EST [facility] Hematocrit 34.7(L) 35.0 - 47.0 % LAB HEMETOLOGY METHOD 04/30/2024 2:[address] [facility] MCV 101.5(H) 79.0 - 98.0 FL LAB HEMETOLOGY METHOD 04/30/2024 2:51 PM EST [facility] MCH 31.3 27.0 - 32.0 pcg LAB HEMETOLOGY METHOD 04/30/2024 2:[address] [facility] MCHC 30.8(L) 32.0 - 37.0 g/dL LAB HEMETOLOGY METHOD 04/30/2024 2:[address] [facility] RDW 17.1(H) 11.0 - 15.0 % LAB HEMETOLOGY METHOD 04/30/2024 2:[address] [facility] Platelets 391 130 - 400 K/mcL LAB HEMETOLOGY METHOD 04/30/2024 2:[address] [facility] MPV 10.8 7.0 - 11.0 FL LAB HEMETOLOGY METHOD 04/30/2024 2:[address] [facility] NRBC 0.5 <1.0 % LAB HEMETOLOGY METHOD 04/30/2024 2:[address] [facility] NRBC Absolute 0.03 <0.10 K/mcL LAB HEMETOLOGY METHOD 04/30/2024 2:[address] [facility] Blood Venous blood specimen / Unknown Venipuncture / Unknown 04/30/2024 6:31 AM EST 04/30/2024 1:53 PM EST us Torrey Kwok MD LAB BLOOD ORDERABLES Final Resul t [facility] [address] [place] [address], documented in this encounter Visit Diagnoses Diagnosis Type 2 diabetes mellitus without complications documented in this encounter Care Teams Editorial Intern Relationship Specialty Start Date End Date Torrey Kwok MD [address] [place] [address] [address] [place] [address] PCP - General Geriatric Medicine 04/25/24 documented as of this encounter
--- OUTSIDE RECORDS SUMMARY | 2024-07-09 09:13 | XMS_ITS | Encounter Summary ---
Author Organization [facility] Address [address] [place] [address] Care Team Providers Care Lead Data Entry Operator Name Role Phone Torrey Kwok MD Primary Care Provider [phone] Encounter Details Date Type Department Care Team (Late st Contact Info) Description 05/01/2024 Lab Requisition [facility] - Main Lab 299 [facility] [place] [address] Torrey Kwok MD [address] [place] [address] Type 2 diabetes mellitus without complications (CMS/HCC) [...] LAB CHEMISTRY METHOD 05/01/2024 9:17 AM EST [facility] Potassium 4.0 3.5 - 5.5 mmol/L LAB CHEMISTRY METHOD 05/01/2024 9:17 AM EST [facility] Chloride 97 96 - 110 mmol/L LAB CHEMISTRY METHOD 05/01/2024 9:17 AM [facility] CO2 29 21 - 32 mmol/L LAB CHEMISTRY METHOD 05/01/2024 9:17 AM [facility] Anion Gap 8 3 - 11 LAB CHEMISTRY METHOD 05/01/2024 9:17 AM [facility] Glucose 262(H) 70 - 100 mg/dL LAB CHEMISTRY METHOD 05/01/2024 9:17 AM [facility] BUN 45(H) 5 - 25 mg/dL LAB CHEMISTRY METHOD 05/01/2024 9:17 AM [facility] Creatinine 1.66(H) 0.50 - 1.10 mg/dL LAB CHEMISTRY METHOD 05/01/2024 9:17 AM [facility] eGFR 30(L) >=60 mL/min/1. 73m2 LAB CHEMISTRY METHOD 05/01/2024 9:17 AM [facility] Comment:Calculation based on the??Chronic Kidney Disease Epidemiology Collaboration (CKD-EPI) equation refit??without adjustment for race. BUN/Creatinine Ratio 27.1 LAB CHEMISTRY METHOD 05/01/2024 9:17 AM [facility] Calcium 7.6(L) 8.5 - 10.5 mg/dL LAB CHEMISTRY METHOD 05/01/2024 9:17 AM [facility] Blood Venous blood specimen / Unknown Venipuncture / Unknown 05/01/2024 7:06 AM EST 05/01/2024 8:25 AM EST us Torrey Kwok MD LAB BLOOD ORDERABLES Final Resul t [facility] [address] [place] [address], documented in this encounter Visit Diagnoses Diagnosis Type 2 diabetes mellitus without complications documented in this encounter Care Teams Lead Data Entry Operator Relationship Specialty Start Date End Date Torrey Kwok MD [address] [place] [address] [address] [place] [address] PCP - General Geriatric Medicine 04/25/24 documented as of this encounter
--- OUTSIDE RECORDS SUMMARY | 2024-07-09 09:13 | XMS_ITS | Encounter Summary ---
Author Organization [facility] Address [address] [place] [phone] Care Team Providers Care President Ceo & Founder Name Role Phone Torrey Kwok MD Primary Care Provider [phone] Encounter Details Date Type Department Care Team (Late st Contact Info) Description 05/30/2024 Lab Requisition [facility] - Main Lab 299 [facility] [place] [address] Torrey Kwok MD [address] [place] [address] Essential (primary) hypertension; Type 2 diabetes mellitus [...] LAB CHEMISTRY METHOD 05/30/2024 5:00 PM EST [facility] Potassium 3.6 3.5 - 5.5 mmol/L LAB CHEMISTRY METHOD 05/30/2024 5:00 PM [facility] Chloride 104 96 - 110 mmol/L LAB CHEMISTRY METHOD 05/30/2024 5:00 PM [facility] CO2 26 21 - 32 mmol/L LAB CHEMISTRY METHOD 05/30/2024 5:00 PM [facility] Anion Gap 9 3 - 11 LAB CHEMISTRY METHOD 05/30/2024 5:00 PM [facility] Glucose 81 70 - 100 mg/dL LAB CHEMISTRY METHOD 05/30/2024 5:00 PM [facility] BUN 31(H) 5 - 25 mg/dL LAB CHEMISTRY METHOD 05/30/2024 5:00 PM [facility] Creatinine 1.11(H) 0.50 - 1.10 mg/dL LAB CHEMISTRY METHOD 05/30/2024 5:00 PM [facility] eGFR 48(L) >=60 mL/min/1. 73m2 LAB CHEMISTRY METHOD 05/30/2024 5:00 PM [facility] Comment:Calculation based on the??Chronic Kidney Disease Epidemiology Collaboration (CKD-EPI) equation refit??without adjustment for race. BUN/Creatinine Ratio 27.9 LAB CHEMISTRY METHOD 05/30/2024 5:00 PM [facility] Calcium 8.8 8.5 - 10.5 mg/dL LAB CHEMISTRY METHOD 05/30/2024 5:00 PM [facility] Blood Venous blood specimen / Unknown Venipuncture / Unknown 05/30/2024 3:45 PM EST 05/30/2024 4:21 PM EST us Torrey Kwok MD LAB BLOOD ORDERABLES Final Resul t [facility] [address] [place] [address], * (ABNORMAL) Complete blood count (05/30/2024 3:45 PM EST) [facility] WBC 7.1 4.8 - 10.8 K/mcL LAB HEMETOLOGY METHOD 05/30/2024 4:35 PM [facility] RBC 3.20(L) 3.80 - 4.80 M/mcL LAB HEMETOLOGY METHOD 05/30/2024 4:35 PM [facility] Hemoglobin 10.3(L) 11.5 - 16.0 g/dL LAB HEMETOLOGY METHOD 05/30/2024 4:35 PM [facility] Hematocrit 32.0(L) 35.0 - 47.0 % LAB HEMETOLOGY METHOD 05/30/2024 4:35 PM [facility] MCV 100.0(H) 79.0 - 98.0 FL LAB HEMETOLOGY METHOD 05/30/2024 4:35 PM [facility] MCH 32.2(H) 27.0 - 32.0 pcg LAB HEMETOLOGY METHOD 05/30/2024 4:35 PM [facility] MCHC 32.2 32.0 - 37.0 g/dL LAB HEMETOLOGY METHOD 05/30/2024 4:35 PM [facility] RDW 18.3(H) 11.0 - 15.0 % LAB HEMETOLOGY METHOD 05/30/2024 4:35 PM [facility] Platelets 319 130 - 400 K/mcL LAB HEMETOLOGY METHOD 05/30/2024 4:35 PM [facility] MPV 10.1 7.0 - 11.0 FL LAB HEMETOLOGY METHOD 05/30/2024 4:35 PM [facility] NRBC 0.0 <1.0 % LAB HEMETOLOGY METHOD 05/30/2024 4:35 PM [facility] NRBC Absolute 0.00 <0.10 K/mcL LAB HEMETOLOGY METHOD 05/30/2024 4:35 PM EST [facility] Blood Venous blood specimen / Unknown Venipuncture / Unknown 05/30/2024 3:45 PM EST 05/30/2024 4:21 PM EST Torrey Kwok MD LAB BLOOD ORDERABLES Final Resul t [facility] [address] [place] [address], documented in this encounter Visit Diagnoses Diagnosis Essential (primary) hypertension Unspecified essential hypertension Type 2 diabetes mellitus without complications documented in this encounter Care Teams President Ceo & Founder Relationship Specialty Start Date End Date Torrey Kwok MD [address] [place] [address] [address] [place] [address] PCP - General Geriatric Medicine 04/25/24 documented as of this encounter
--- OUTSIDE RECORDS SUMMARY | 2024-07-09 09:13 | XMS_ITS | Encounter Summary ---
Author Organization [facility] Address [address] [place] [phone] Care Team Providers Care 1St Pressman Name Role Phone Torrey Kwok MD Primary Care Provider [phone] Encounter Details Date Type Department Care Team (Late st Contact Info) Description 05/24/2024 Lab Requisition [facility] - Main Lab 299 [facility] [place] [address] Torrey Kwok MD [address] [place], [place] [id number] Type 2 diabetes mellitus with diabetic chronic [...] mmol/L LAB CHEMISTRY METHOD 05/26/2024 11:56 AM [facility] Potassium 3.5 3.5 - 5.5 mmol/L LAB CHEMISTRY METHOD 05/26/2024 11:56 AM [facility] Chloride 101 96 - 110 mmol/L LAB CHEMISTRY METHOD 05/26/2024 11:56 AM [facility] CO2 26 21 - 32 mmol/L LAB CHEMISTRY METHOD 05/26/2024 11:56 AM [facility] Anion Gap 14(H) 3 - 11 LAB CHEMISTRY METHOD 05/26/2024 11:56 AM [facility] Glucose 200(H) 70 - 100 mg/dL LAB CHEMISTRY METHOD 05/26/2024 11:56 AM [facility] BUN 35(H) 5 - 25 mg/dL LAB CHEMISTRY METHOD 05/26/2024 11:56 AM [facility] Creatinine 1.16(H) 0.50 - 1.10 mg/dL LAB CHEMISTRY METHOD 05/26/2024 11:56 AM [facility] eGFR 46(L) >=60 mL/min/1. 73m2 LAB CHEMISTRY METHOD 05/26/2024 11:56 AM [facility] Comment:Calculation based on the??Chronic Kidney Disease Epidemiology Collaboration (CKD-EPI) equation refit??without adjustment for race. BUN/Creatinine Ratio 30.2 LAB CHEMISTRY METHOD 05/26/2024 11:56 AM [facility] Calcium 8.9 8.5 - 10.5 mg/dL LAB CHEMISTRY METHOD 05/26/2024 11:56 AM [facility] AST (SGOT) 21 10 - 42 unit/L LAB CHEMISTRY METHOD 05/26/2024 11:56 AM [facility] ALT (SGPT) 20 10 - 60 unit/L LAB CHEMISTRY METHOD 05/26/2024 11:56 AM [facility] Alkaline Phosphatase 146(H) 42 - 121 unit/L LAB CHEMISTRY METHOD 05/26/2024 11:56 AM [facility] Total Protein 6.8 6.0 - 8.0 g/dL LAB CHEMISTRY METHOD 05/26/2024 11:56 AM [facility] Albumin 3.6 3.2 - 5.0 g/dL LAB CHEMISTRY METHOD 05/26/2024 11:56 AM [facility] Total Bilirubin 0.6 0.0 - 1.4 mg/dL LAB CHEMISTRY METHOD 05/26/2024 11:56 AM [facility] Blood Venous blood specimen / Unknown Venipuncture / Unknown 05/26/2024 5:59 AM EST 05/26/2024 11:00 AM EST us Torrey Kwok MD LAB BLOOD ORDERABLES Final Resul t [facility] [address] [place] [address], * (ABNORMAL) B-type natriuretic peptide (05/26/2024 5:59 AM EST) BNP 320(H) <=100 pcg/mL LAB CHEMISTRY METHOD 05/26/2024 1:35 PM [facility] Blood Venous blood specimen / Unknown Venipuncture / Unknown 05/26/2024 5:59 AM EST 05/26/2024 11:00 AM EST us Torrey Kwok MD LAB BLOOD ORDERABLES Final Resul t [facility] [address] [place] [address], [place] [phone] * (ABNORMAL) Basic metabolic panel (05/26/2024 5:59 AM EST) [facility] Sodium 141 133 - 145 mmol/L LAB CHEMISTRY METHOD 05/26/2024 11:50 AM [facility] Potassium 3.5 3.5 - 5.5 mmol/L LAB CHEMISTRY METHOD 05/26/2024 11:50 AM [facility] Chloride 101 96 - 110 mmol/L LAB CHEMISTRY METHOD 05/26/2024 11:50 AM [facility] CO2 26 21 - 32 mmol/L LAB CHEMISTRY METHOD 05/26/2024 11:50 AM [facility] Anion Gap 14(H) 3 - 11 LAB CHEMISTRY METHOD 05/26/2024 11:50 AM [facility] Glucose 200(H) 70 - 100 mg/dL LAB CHEMISTRY METHOD 05/26/2024 11:50 AM [facility] BUN 35(H) 5 - 25 mg/dL LAB CHEMISTRY METHOD 05/26/2024 11:50 AM [facility] Creatinine 1.16(H) 0.50 - 1.10 mg/dL LAB CHEMISTRY METHOD 05/26/2024 11:50 AM [facility] eGFR 46(L) >=60 mL/min/1. 73m2 LAB CHEMISTRY METHOD 05/26/2024 11:50 AM EST [facility] Comment:Calculation based on the??Chronic Kidney Disease Epidemiology Collaboration (CKD-EPI) equation refit??without adjustment for race. BUN/Creatinine Ratio 30.2 LAB CHEMISTRY METHOD 05/26/2024 11:50 AM [facility] Calcium 8.9 8.5 - 10.5 mg/dL LAB CHEMISTRY METHOD 05/26/2024 11:50 AM [facility] Blood Venous blood specimen / Unknown Venipuncture / Unknown 05/26/2024 5:59 AM EST 05/26/2024 11:00 AM EST us Torrey Kwok MD LAB BLOOD ORDERABLES Final Resul t [facility] [address] [place] [address], * (ABNORMAL) Complete blood count (05/26/2024 5:59 AM EST) WBC 10.4 4.8 - 10.8 K/mcL LAB HEMETOLOGY METHOD 05/26/2024 11:12 AM [facility] RBC 3.30(L) 3.80 - 4.80 M/mcL LAB HEMETOLOGY METHOD 05/26/2024 11:12 AM [facility] Hemoglobin 10.7(L) 11.5 - 16.0 g/dL LAB HEMETOLOGY METHOD 05/26/2024 11:12 AM [facility] Hematocrit 34.0(L) 35.0 - 47.0 % LAB HEMETOLOGY METHOD 05/26/2024 11:12 AM [facility] MCV 102.1(H) 79.0 - 98.0 FL LAB HEMETOLOGY METHOD 05/26/2024 11:12 AM [facility] MCH 32.1(H) 27.0 - 32.0 pcg LAB HEMETOLOGY METHOD 05/26/2024 11:12 AM EST [facility] MCHC 31.5(L) 32.0 - 37.0 g/dL LAB HEMETOLOGY METHOD 05/26/2024 11:12 AM [facility] RDW 19.8(H) 11.0 - 15.0 % LAB HEMETOLOGY METHOD 05/26/2024 11:12 AM [facility] Platelets 418(H) 130 - 400 K/mcL LAB HEMETOLOGY METHOD 05/26/2024 11:12 AM EST [facility] MPV 10.0 7.0 - 11.0 FL LAB HEMETOLOGY METHOD 05/26/2024 11:12 AM [facility] NRBC 0.0 <1.0 % LAB HEMETOLOGY METHOD 05/26/2024 11:12 AM [facility] NRBC Absolute 0.00 <0.10 K/mcL LAB HEMETOLOGY METHOD 05/26/2024 11:12 AM [facility] Blood Venous blood specimen / Unknown Venipuncture / Unknown 05/26/2024 5:59 AM EST 05/26/2024 11:00 AM EST us Torrey Kwok MD LAB BLOOD ORDERABLES Final Resul t [facility] [address] [place] [address], documented in this encounter Visit Diagnoses Diagnosis Type 2 diabetes mellitus with diabetic chronic kidney disease (CMS/HCC) Essential (primary) hypertension Unspecified essential hypertension Heart failure, unspecified (CMS/HCC) Heart failure, unspecified 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
--- OUTSIDE RECORDS SUMMARY | 2024-07-09 09:13 | XMS_ITS ---
Author Organization [facility] Address [address] [facility] [place] [address] Care Team Providers Care Subscription Crew Leader Name Role Phone Monique White Primary Care Provider Arturo Brown Unavailable [phone] Allergies Allergen (clinical drug ingredient) Drug/Non Drug [...] Ordered Date Performed Result Body Sit e 23122-PHCEBOR NAIL, 6 OR MORE 02/05/2024 N/A 67943-REIQ SKIN LESIONS, 2 TO 4 02/05/2024 N/A Encounters Encounter Location Date Provider Diagnosis [facility] [address] [place] [address] 02/05/2024 Arturo Simon Type 1 diabetes mellitus [...] INSTRUCTIONS.pdf) Pending Test Test Name Order Date 73443-WPTPJKR NAIL, 6 OR MORE 02/05/2024 23060-HYIZ SKIN LESIONS, 2 TO 4 02/05/20 24 Next Appt Details Follow Up: prn, Reason: Provider Name:Arturo Simon , 08/15/2024 10:15:00 AM, [address] [place], [address], Procedure Notes * Category Sub-Category Detail Notes Debride Nail 6-10 Nail debridement Performance o f this nail treatment by a nonprofessional would put this patients foot and overall health at risk. Therefore, nail debridement was performed extensively to reduce/remove overall nail length, girth, thickness, subungual debris, and necrotic tissue, by manual and/or electrical means through the use of a nail nipper and/or dremel-type spice grinder, to a more viable healthy nail plate or bed tissue 6-10. Silver nitrate used for any petechial bleeding as necessary. Definitive antifungal treatment options have been reviewed and discussed with the patient. The patient chooses, no pharmaceutical tx - 75386 Keratoma Treatment Parring or Cutting o f Benign Hyperkeratotic Lesion(s) (-56) 2-4 Lesions - The Benign hyperkeratotic lesions, as described above were pared, and/or cut utilizing a sterile 15 blade, tissue nippers, and/or dremel - 16025 Progress Notes * Gerri SCHWARTZ RDOB:[birth year] (88 yo F)Acc No.[id number]:02/05/2024 Progress Note Patient:?Gerri SCHWARTZ R Provider:?Arturo Simon DPM :1935???Age:88 Y???Sex:Female D ate:02/05/2024 Address: [id number] Pcp:Monique White Subjective: * Chief Complaints: * [...] Hospitalization/Major Diagno stic Procedure:?[facility] 04[facility]2015[facility] / for medication 04/2015[facility]: A-fib 12/2015[facility]- UTI 11/16/23 * Family History:?Mother: dece ased, [...] bike. ?Marital status: . ?Occupation: Retired -, [employer]. * Medications:?TakingToujeo Ma x SoloStar 300 UNIT/ML [...] use of a nail nipper and/or dremel-type spice grinder, to a more viable healthy nail plate or bed tissue 6-10. Silver nitrate used for any petechial bleeding as necessary. Definitive antifungal treatment options have been reviewed and discussed with the patient. The patient chooses, no pharmaceutical tx - 08812.?Keratoma Treatment:?Parring or Cutting of Benign Hyperkeratotic Lesion(s)?(-56) 2-4 Lesions - The Benign hyperkeratotic lesions, as described above were pared, and/or cut utilizing a sterile 15 blade, tissue nippers, and/or dremel - 23173.? * Procedure Codes:?04496 DEBRI DE NAIL, 6 OR MORE, Modifiers: XS 99004 TRIM SKIN LESIONS, 2 TO 4, Modifiers: [...] Simon DPM Date:?2023 Generated for Awilda diggs/Lee/Nilay on:?07/09/2024 09:12 AM EDT History and Physical Notes * [...] No Charcot enrrique apse/destruction noted at [facility] FOOTWEAR EVALUATION: worn, OT were inspe cted and noted to be severely worn , [...]
--- OUTSIDE RECORDS SUMMARY | 2024-07-09 09:13 | XMS_ITS | Encounter Summary ---
Author Organization [facility] Address [address] [place] [phone] Care Team Providers Care Handstitching Machine Collar Feller Name Role Phone Torrey Kwok MD Primary Care Provider [phone] Encounter Details Date Type Department Care Team (Late st Contact Info) Description 06/02/2024 Lab Requisition [facility] - Main Lab 299 [facility] [place] [address] Torrey Kwok MD [address] [place], [place] [id number] Chronic diastolic (congestive) heart failure (CMS/HCC); Chronic [...] mmol/L LAB CHEMISTRY METHOD 06/02/2024 3:36 PM [facility] Potassium 3.5 3.5 - 5.5 mmol/L LAB CHEMISTRY METHOD 06/02/2024 3:36 PM [facility] Chloride 93(L) 96 - 110 mmol/L LAB CHEMISTRY METHOD 06/02/2024 3:36 PM [facility] CO2 29 21 - 32 mmol/L LAB CHEMISTRY METHOD 06/02/2024 3:36 PM [facility] Anion Gap 8 3 - 11 LAB CHEMISTRY METHOD 06/02/2024 3:36 PM [facility] Glucose 468(HH) 70 - 100 mg/dL LAB CHEMISTRY METHOD 06/02/2024 3:36 PM [facility] BUN 43(H) 5 - 25 mg/dL LAB CHEMISTRY METHOD 06/02/2024 3:36 PM [facility] Creatinine 1.43(H) 0.50 - 1.10 mg/dL LAB CHEMISTRY METHOD 06/02/2024 3:36 PM [facility] eGFR 36(L) >=60 mL/min/1. 73m2 LAB CHEMISTRY METHOD 06/02/2024 3:36 PM [facility] Comment:Calculation based on the??Chronic Kidney Disease Epidemiology Collaboration (CKD-EPI) equation refit??without adjustment for race. BUN/Creatinine Ratio 30.1 LAB CHEMISTRY METHOD 06/02/2024 3:36 PM [facility] Calcium 8.7 8.5 - 10.5 mg/dL LAB CHEMISTRY METHOD 06/02/2024 3:36 PM [facility] Blood Venous blood specimen / Unknown Venipuncture / Unknown 06/02/2024 12:17 PM EST 06/02/2024 2:05 PM EST us Torrey Kwok MD LAB BLOOD ORDERABLES Final Resul t [facility] [address] [place] [address], [place] [phone] * (ABNORMAL) Complete blood count (06/02/2024 12:17 PM EST) [facility] WBC 9.0 4.8 - 10.8 K/mcL LAB HEMETOLOGY METHOD 06/02/2024 2:27 PM [facility] RBC 3.60(L) 3.80 - 4.80 M/mcL LAB HEMETOLOGY METHOD 06/02/2024 2:27 PM [facility] Hemoglobin 11.5 11.5 - 16.0 g/dL LAB HEMETOLOGY METHOD 06/02/2024 2:27 PM [facility] Hematocrit 35.4 35.0 - 47.0 % LAB HEMETOLOGY METHOD 06/02/2024 2:27 PM [facility] MCV 97.8 79.0 - 98.0 FL LAB HEMETOLOGY METHOD 06/02/2024 2:27 PM [facility] MCH 31.8 27.0 - 32.0 pcg LAB HEMETOLOGY METHOD 06/02/2024 2:27 PM [facility] MCHC 32.5 32.0 - 37.0 g/dL LAB HEMETOLOGY METHOD 06/02/2024 2:27 PM [facility] RDW 17.8(H) 11.0 - 15.0 % LAB HEMETOLOGY METHOD 06/02/2024 2:27 PM [facility] Platelets 342 130 - 400 K/mcL LAB HEMETOLOGY METHOD 06/02/2024 2:27 PM [facility] MPV 10.4 7.0 - 11.0 FL LAB HEMETOLOGY METHOD 06/02/2024 2:27 PM [facility] NRBC 0.0 <1.0 % LAB HEMETOLOGY METHOD 06/02/2024 2:27 PM EST [facility] NRBC Absolute 0.00 <0.10 K/mcL LAB HEMETOLOGY METHOD 06/02/2024 2:27 PM EST [facility] Blood Venous blood specimen / Unknown Venipuncture / Unknown 06/02/2024 12:17 PM EST 06/02/2024 2:05 PM EST us Torrey Kwok MD LAB BLOOD ORDERABLES Final Resul t [facility] [address] [place] [address], documented in this encounter Visit Diagnoses Diagnosis Chronic diastolic (congestive) heart failure Chronic kidney disease, stage 3 unspecified (CMS/HCC) documented in this encounter Care Teams Handstitching Machine Collar Feller Relationship Specialty Start Date End Date Torrey Kwok MD [address] [place] [address] [address] [place] [address] PCP - General Geriatric Medicine 04/25/24 documented as of this encounter
--- OUTSIDE RECORDS SUMMARY | 2024-07-09 09:13 | XMS_ITS | Encounter Summary ---
Author Organization [facility] Address [address] [place] [address] Care Team Providers Care Office Services Coordinator Name Role Phone Torrey Kwok MD Primary Care Provider [phone] Encounter Details Date Type Department Care Team (Late st Contact Info) Description 05/05/2024 Lab Requisition [facility] - Main Lab 299 [facility] [place] [address] Torrey Kwok MD [address] [place] [address] Chronic kidney disease, stage 3 unspecified (CMS/HCC); [...] LAB CHEMISTRY METHOD 05/05/2024 2:05 PM EST [facility] Potassium 5.0 3.5 - 5.5 mmol/L LAB CHEMISTRY METHOD 05/05/2024 2:05 PM [facility] Comment:Hemolysis present Chloride 99 96 - 110 mmol/L LAB CHEMISTRY METHOD 05/05/2024 2:05 PM [facility] CO2 26 21 - 32 mmol/L LAB CHEMISTRY METHOD 05/05/2024 2:05 PM [facility] Anion Gap 9 3 - 11 LAB CHEMISTRY METHOD 05/05/2024 2:05 PM [facility] Glucose 141(H) 70 - 100 mg/dL LAB CHEMISTRY METHOD 05/05/2024 2:05 PM [facility] BUN 23 5 - 25 mg/dL LAB CHEMISTRY METHOD 05/05/2024 2:05 PM [facility] Creatinine 1.08 0.50 - 1.10 mg/dL LAB CHEMISTRY METHOD 05/05/2024 2:05 PM [facility] eGFR 50(L) >=60 mL/min/1. 73m2 LAB CHEMISTRY METHOD 05/05/2024 2:05 PM [facility] Comment:Calculation based on the??Chronic Kidney Disease Epidemiology Collaboration (CKD-EPI) equation refit??without adjustment for race. BUN/Creatinine Ratio 21.3 LAB CHEMISTRY METHOD 05/05/2024 2:05 PM [facility] Calcium 8.3(L) 8.5 - 10.5 mg/dL LAB CHEMISTRY METHOD 05/05/2024 2:05 PM [facility] Blood Venous blood specimen / Unknown Venipuncture / Unknown 05/05/2024 5:43 AM EST 05/05/2024 11:40 AM EST us Torrey Kwok MD LAB BLOOD ORDERABLES Final Resul t [facility] [address] [place] [address], documented in this encounter Visit Diagnoses Diagnosis Chronic kidney disease, stage 3 unspecified (CMS/HCC) Type 2 diabetes mellitus with diabetic chronic kidney disease (CMS/[facility]) documented in this encounter Care Teams Office Services Coordinator Relationship Specialty Start Date End Date Torrey Kwok MD [address] [place] [address] [address] [place] [address] PCP - General Geriatric Medicine 04/25/24 documented as of this encounter
--- OUTSIDE RECORDS SUMMARY | 2024-07-09 09:13 | XMS_ITS | Encounter Summary ---
Author Organization [facility] Address [address] [place] [phone] Care Team Providers Care Ball Ender Name Role Phone Torrey Kwok MD Primary Care Provider [phone] Encounter Details Date Type Department Care Team (Late st Contact Info) Description 04/25/2024 Lab Requisition [facility] - Main Lab 299 [facility] [place] [address] Torrey Kwok MD [address] [place], [place] [id number] Vitamin D deficiency, unspecified; Type 2 diabetes [...] LAB CHEMISTRY METHOD 04/25/2024 10:35 AM EST [facility] Blood Venous blood specimen / Unknown Venipuncture / Unknown 04/25/2024 5:49 AM EST 04/25/2024 9:21 AM EST us Torrey Kwok MD LAB BLOOD ORDERABLES Final Resul t [facility] [address] [place] [address], [place] [phone] * Thyroid stimulating hormone (04/25/2024 5:49 AM EST) TSH 3.04 0.40 - 4.00 mcIU/mL LAB CHEMISTRY METHOD 04/25/2024 10:35 AM EST [facility] Blood Venous blood specimen / Unknown Venipuncture / Unknown 04/25/2024 5:49 AM EST 04/25/2024 9:21 AM EST us Torrey Kwok MD LAB BLOOD ORDERABLES Final Resul t [facility] [address] [place] [address], [place] [phone] * Folate (04/25/2024 5:49 AM EST) Folate 12.8 2.8 - 17.0 ng/ml LAB CHEMISTRY METHOD 04/25/2024 11:26 AM EST [facility] Blood Venous blood specimen / Unknown Venipuncture / Unknown 04/25/2024 5:49 AM EST 04/25/2024 9:21 AM EST us Torrey Kwok MD LAB BLOOD ORDERABLES Final Resul t [facility] [address] [place] [address], [place] [phone] * Vitamin B12 (04/25/2024 5:49 AM EST) Vitamin B-12 711 250 - 900 pcg/mL LAB CHEMISTRY METHOD 04/25/2024 11:26 AM EST [facility] Blood Venous blood specimen / Unknown Venipuncture / Unknown 04/25/2024 5:49 AM EST 04/25/2024 9:21 AM EST us Torrey Kwok MD LAB BLOOD ORDERABLES Final Resul t Performing Organization Address City/[facility]/ZIP Co de Phone Number [facility] [address] [place] [address], [place] [phone] * (ABNORMAL) Hemoglobin A1c (04/25/2024 5:49 AM EST) Pathologist [facility] Hemoglobin A1C 8.7(H) <6.5 % LAB CHEMISTRY METHOD 04/25/2024 1:33 PM EST [facility] Mean Bld Glu Estim. 203 mg/dL LAB CHEMISTRY METHOD 04/25/2024 1:[address] [facility] Blood Venous blood specimen / Unknown Venipuncture / Unknown 04/25/2024 5:49 AM EST 04/25/2024 9:21 AM EST us Torrey Kwok MD LAB BLOOD ORDERABLES Final Resul t Performing Organization Address City/[facility]/ZIP Co de Phone Number [facility] [address] [place] [address], [place] [phone] * (ABNORMAL) Comprehensive metabolic panel (04/25/2024 5:49 AM EST) [facility] Sodium 135 133 - 145 mmol/L [...] Resul t [facility] [address] [place] [address], * (ABNORMAL) Complete blood count (04/25/2024 5:49 AM EST) WBC 7.7 4.8 - 10.8 K/mcL LAB HEMETOLOGY METHOD 04/25/2024 10:[address] [facility] RBC 2.90(L) 3.80 - 4.80 M/mcL LAB HEMETOLOGY METHOD 04/25/2024 10:[address] [facility] Hemoglobin 9.1(L) 11.5 - 16.0 g/dL LAB HEMETOLOGY METHOD 04/25/2024 10:[address] [facility] Hematocrit 27.7(L) 35.0 - 47.0 % LAB HEMETOLOGY METHOD 04/25/2024 10:[address] [facility] MCV 94.9 79.0 - 98.0 FL LAB HEMETOLOGY METHOD 04/25/2024 10:[address] [facility] MCH 31.2 27.0 - 32.0 pcg LAB HEMETOLOGY METHOD 04/25/2024 10:[address] [facility] MCHC 32.9 32.0 - 37.0 g/dL LAB HEMETOLOGY METHOD 04/25/2024 10:[address] [facility] RDW 15.5(H) 11.0 - 15.0 % LAB HEMETOLOGY METHOD 04/25/2024 10:[address] [facility] Platelets 214 130 - 400 K/mcL LAB HEMETOLOGY METHOD 04/25/2024 10:[address] [facility] MPV 10.8 7.0 - 11.0 FL LAB HEMETOLOGY METHOD 04/25/2024 10:07 AM EST [facility] NRBC 0.0 <1.0 % LAB HEMETOLOGY METHOD 04/25/2024 10:07 AM EST [facility] NRBC Absolute 0.00 <0.10 K/mcL LAB HEMETOLOGY METHOD 04/25/2024 10:07 AM EST [facility] Blood Venous blood specimen / Unknown Venipuncture / Unknown 04/25/2024 5:49 AM EST 04/25/2024 9:21 AM EST Torrey Kwok MD LAB BLOOD ORDERABLES Final Resul t [facility] [address] [place] [address], documented in this encounter Visit Diagnoses Diagnosis Vitamin D deficiency, unspecified 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
--- OUTSIDE RECORDS SUMMARY | 2024-07-09 09:13 | XMS_ITS | Encounter Summary ---
Author Organization [facility] Address [address] [place] [phone] Care Team Providers Care Transit Man Name Role Phone Torrey Kwok MD Primary Care Provider [phone] Encounter Details Date Type Department Care Team (Late st Contact Info) Description 05/31/2024 Lab Requisition [facility] - Main Lab 299 [facility] [place] [address] Torrey Kwok MD [address] [place], [place] [id number] Type 2 diabetes mellitus with diabetic chronic [...] mmol/L LAB CHEMISTRY METHOD 06/02/2024 1:18 PM [facility] Potassium 3.7 3.5 - 5.5 mmol/L LAB CHEMISTRY METHOD 06/02/2024 1:18 PM [facility] Chloride 94(L) 96 - 110 mmol/L LAB CHEMISTRY METHOD 06/02/2024 1:18 PM [facility] CO2 27 21 - 32 mmol/L LAB CHEMISTRY METHOD 06/02/2024 1:18 PM [facility] Anion Gap 12(H) 3 - 11 LAB CHEMISTRY METHOD 06/02/2024 1:18 PM [facility] Glucose 464(HH) 70 - 100 mg/dL LAB CHEMISTRY METHOD 06/02/2024 1:18 PM [facility] BUN 34(H) 5 - 25 mg/dL LAB CHEMISTRY METHOD 06/02/2024 1:18 PM [facility] Creatinine 1.18(H) 0.50 - 1.10 mg/dL LAB CHEMISTRY METHOD 06/02/2024 1:18 PM [facility] eGFR 45(L) >=60 mL/min/1. 73m2 LAB CHEMISTRY METHOD 06/02/2024 1:18 PM [facility] Comment:Calculation based on the??Chronic Kidney Disease Epidemiology Collaboration (CKD-EPI) equation refit??without adjustment for race. BUN/Creatinine Ratio 28.8 LAB CHEMISTRY METHOD 06/02/2024 1:18 PM [facility] Calcium 9.0 8.5 - 10.5 mg/dL LAB CHEMISTRY METHOD 06/02/2024 1:18 PM [facility] Blood Venous blood specimen / Unknown Venipuncture / Unknown 06/02/2024 5:33 AM EST 06/02/2024 10:52 AM EST us Torrey Kwok MD LAB BLOOD ORDERABLES Final Resul t [facility] [address] [place] [address], [place] [phone] * (ABNORMAL) Complete blood count (06/02/2024 5:33 AM EST) WBC 9.9 4.8 - 10.8 K/mcL LAB HEMETOLOGY METHOD 06/02/2024 2:00 PM [facility] RBC 3.70(L) 3.80 - 4.80 M/mcL LAB HEMETOLOGY METHOD 06/02/2024 2:00 PM [facility] Hemoglobin 11.5 11.5 - 16.0 g/dL LAB HEMETOLOGY METHOD 06/02/2024 2:00 PM [facility] Hematocrit 37.8 35.0 - 47.0 % LAB HEMETOLOGY METHOD 06/02/2024 2:00 PM [facility] MCV 103.6(H) 79.0 - 98.0 FL LAB HEMETOLOGY METHOD 06/02/2024 2:00 PM [facility] MCH 31.5 27.0 - 32.0 pcg LAB HEMETOLOGY METHOD 06/02/2024 2:00 PM [facility] MCHC 30.4(L) 32.0 - 37.0 g/dL LAB HEMETOLOGY METHOD 06/02/2024 2:00 PM [facility] RDW 18.5(H) 11.0 - 15.0 % LAB HEMETOLOGY METHOD 06/02/2024 2:00 PM [facility] Platelets 365 130 - 400 K/mcL LAB HEMETOLOGY METHOD 06/02/2024 2:00 PM [facility] MPV 10.4 7.0 - 11.0 FL LAB HEMETOLOGY METHOD 06/02/2024 2:00 PM EST [facility] NRBC 0.0 <1.0 % LAB HEMETOLOGY METHOD 06/02/2024 2:00 PM EST [facility] NRBC Absolute 0.00 <0.10 K/mcL LAB HEMETOLOGY METHOD 06/02/2024 2:00 PM EST [facility] Blood Venous blood specimen / Unknown Venipuncture / Unknown 06/02/2024 5:33 AM EST 06/02/2024 10:52 AM EST Torrey Kwok MD LAB BLOOD ORDERABLES Final Resul t [facility] [address] [place] [address], documented in this encounter Visit Diagnoses Diagnosis Type 2 diabetes mellitus with diabetic chronic kidney disease (CMS/HCC) Essential (primary) hypertension Unspecified essential hypertension Heart failure, unspecified (CMS/HCC) Heart failure, unspecified 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) documented in this encounter Care Teams Transit Man Relationship Specialty Start Date End Date Torrey Kwok MD [address] [place], [place] [id number] [place] [address] PCP - General Geriatric Medicine 04/25/24 documented as of this encounter
--- OUTSIDE RECORDS SUMMARY | 2024-07-09 09:13 | XMS_ITS | Encounter Summary ---
Author Organization [facility] Address [address] [place] [address] Care Team Providers Care Regional Director Name Role Phone Torrey Kwok MD Primary Care Provider [phone] Encounter Details Date Type Department Care Team (Late st Contact Info) Description 05/16/2024 Lab Requisition [facility] - Main Lab 299 [facility] [place] [address] Torrey Kwok MD [address] [place], [place] [phone] Heart failure, unspecified (CMS/HCC); Essential (primary) hypertension; [...] mmol/L LAB CHEMISTRY METHOD 05/19/2024 2:03 PM [facility] Potassium 3.7 3.5 - 5.5 mmol/L LAB CHEMISTRY METHOD 05/19/2024 2:03 PM [facility] Chloride 102 96 - 110 mmol/L LAB CHEMISTRY METHOD 05/19/2024 2:03 PM [facility] CO2 25 21 - 32 mmol/L LAB CHEMISTRY METHOD 05/19/2024 2:03 PM [facility] Anion Gap 10 3 - 11 LAB CHEMISTRY METHOD 05/19/2024 2:03 PM [facility] Glucose 92 70 - 100 mg/dL LAB CHEMISTRY METHOD 05/19/2024 2:03 PM [facility] BUN 23 5 - 25 mg/dL LAB CHEMISTRY METHOD 05/19/2024 2:03 PM [facility] Creatinine 0.97 0.50 - 1.10 mg/dL LAB CHEMISTRY METHOD 05/19/2024 2:03 PM [facility] eGFR 57(L) >=60 mL/min/1. 73m2 LAB CHEMISTRY METHOD 05/19/2024 2:03 PM [facility] Comment:Calculation based on the??Chronic Kidney Disease Epidemiology Collaboration (CKD-EPI) equation refit??without adjustment for race. BUN/Creatinine Ratio 23.7 LAB CHEMISTRY METHOD 05/19/2024 2:03 PM [facility] Calcium 8.8 8.5 - 10.5 mg/dL LAB CHEMISTRY METHOD 05/19/2024 2:03 PM [facility] Blood Venous blood specimen / Unknown Venipuncture / Unknown 05/19/2024 7:33 AM EST 05/19/2024 12:17 PM EST us Torrey Kwok MD LAB BLOOD ORDERABLES Final Resul t [facility] [address] [place] [address], * (ABNORMAL) Complete blood count (05/19/2024 7:33 AM EST) [facility] WBC 5.4 4.8 - 10.8 K/mcL LAB HEMETOLOGY METHOD 05/19/2024 1:26 PM [facility] RBC 3.50(L) 3.80 - 4.80 M/mcL LAB HEMETOLOGY METHOD 05/19/2024 1:26 PM [facility] Hemoglobin 11.1(L) 11.5 - 16.0 g/dL LAB HEMETOLOGY METHOD 05/19/2024 1:26 PM [facility] Hematocrit 35.7 35.0 - 47.0 % LAB HEMETOLOGY METHOD 05/19/2024 1:26 PM [facility] MCV 103.5(H) 79.0 - 98.0 FL LAB HEMETOLOGY METHOD 05/19/2024 1:26 PM [facility] MCH 32.2(H) 27.0 - 32.0 pcg LAB HEMETOLOGY METHOD 05/19/2024 1:26 PM [facility] MCHC 31.1(L) 32.0 - 37.0 g/dL LAB HEMETOLOGY METHOD 05/19/2024 1:26 PM [facility] RDW 20.0(H) 11.0 - 15.0 % LAB HEMETOLOGY METHOD 05/19/2024 1:26 PM [facility] Platelets 344 130 - 400 K/mcL LAB HEMETOLOGY METHOD 05/19/2024 1:26 PM [facility] MPV 10.8 7.0 - 11.0 FL LAB HEMETOLOGY METHOD 05/19/2024 1:26 PM [facility] NRBC 0.0 <1.0 % LAB HEMETOLOGY METHOD 05/19/2024 1:26 PM EST [facility] NRBC Absolute 0.00 <0.10 K/mcL LAB HEMETOLOGY METHOD 05/19/2024 1:26 PM EST [facility] Blood Venous blood specimen / Unknown Venipuncture / Unknown 05/19/2024 7:33 AM EST 05/19/2024 12:17 PM EST Torrey Kwok MD LAB BLOOD ORDERABLES Final Resul t [facility] [address] [place] [address], documented in this encounter Visit Diagnoses Diagnosis Heart failure, unspecified (CMS/HCC) Heart failure, unspecified Essential (primary) hypertension Unspecified essential hypertension Type 2 diabetes mellitus with diabetic chronic kidney disease (CMS/HCC) documented in this encounter Care Teams Regional Director Relationship Specialty Start Date End Date Torrey Kwok MD [address] [place] [address] [address] [place] [address] PCP - General Geriatric Medicine 04/25/24 documented as of this encounter
--- OUTSIDE RECORDS SUMMARY | 2024-07-09 09:13 | XMS_ITS | Encounter Summary ---
Author Organization [facility] Address [address] [place] [phone] Care Team Providers Care Wine Sales Representative Name Role Phone Torrey Kwok MD Primary Care Provider [phone] Encounter Details Date Type Department Care Team (Late st Contact Info) Description 06/07/2024 Lab Requisition [facility] - Main Lab 299 [facility] [place] [address] Torrey Kwok MD [address] [place], [place] [phone] Heart failure, unspecified (CMS/HCC); Type 2 diabetes [...] D 25 hydroxy (06/07/2024 6:36 AM EST) [facility] Vit D, 25-Hydroxy 41.4 30.0 - 80.0 ng/mL LAB CHEMISTRY METHOD 06/07/2024 1:29 PM EST [facility] Blood Venous blood specimen / Unknown Venipuncture / Unknown 06/07/2024 6:36 AM EST 06/07/2024 9:58 AM EST us Torrey Kwok MD LAB BLOOD ORDERABLES Final Resul t [facility] [address] [place] [address], [place] [phone] * Folate (06/07/2024 6:36 AM EST) [facility] Folate 9.8 2.8 - 17.0 ng/ml LAB CHEMISTRY METHOD 06/07/2024 12:13 PM EST [facility] Blood Venous blood specimen / Unknown Venipuncture / Unknown 06/07/2024 6:36 AM EST 06/07/2024 9:58 AM EST us Torrey Kwok MD LAB BLOOD ORDERABLES Final Resul t [facility] [address] [place] [address], [place] [phone] * (ABNORMAL) Vitamin B12 (06/07/2024 6:36 AM EST) Vitamin B-12 1,072(H) 250 - 900 pcg/mL LAB CHEMISTRY METHOD 06/07/2024 12:13 PM EST [facility] Blood Venous blood specimen / Unknown Venipuncture / Unknown 06/07/2024 6:36 AM EST 06/07/2024 9:58 AM EST Torrey Kwok MD LAB BLOOD ORDERABLES Final Resul t [facility] [address] [place] [address], documented in this encounter Visit Diagnoses Diagnosis Heart failure, unspecified (CMS/HCC) Heart failure, unspecified Type 2 diabetes mellitus with diabetic chronic kidney disease (CMS/HCC) Chronic kidney disease, stage 3 unspecified (CMS/HCC) Vitamin D deficiency, unspecified Essential (primary) hypertension Unspecified essential hypertension documented in this encounter Care Teams Wine Sales Representative Relationship Specialty Start Date End Date Torrey Kwok MD [address] [place] [address] [address] [place] [address] PCP - General Geriatric Medicine 04/25/24 documented as of this encounter
--- OUTSIDE RECORDS SUMMARY | 2024-07-09 09:13 | XMS_ITS | Encounter Summary ---
Author Organization [facility] Address [address] [place] [phone] Care Team Providers Care Online Merchandising Manager Name Role Phone Torrey Kwok MD Primary Care Provider [phone] Encounter Details Date Type Department Care Team (Late st Contact Info) Description 05/09/2024 Lab Requisition [facility] - Main Lab 299 [facility] [place] [address] Torrey Kwok MD [address] [place], [place] [phone] Type 2 diabetes mellitus with unspecified diabetic [...] (CMS/HCC) documented in this encounter Care Teams Online Merchandising Manager Relationship Specialty Start Date End Date Torrey Kwok MD [address] [place], [place] [phone] PCP - General Geriatric Medicine 04/25/24 documented as of this encounter
--- OUTSIDE RECORDS SUMMARY | 2024-07-09 09:13 | XMS_ITS | Encounter Summary ---
Author Organization [facility] Address [address] [place] [address] Care Team Providers Care Ross Furnace Operator Name Role Phone Torrey Kwok MD Primary Care Provider [phone] Encounter Details Date Type Department Care Team (Late st Contact Info) Description 06/07/2024 Lab Requisition [facility] - Main Lab 299 [facility] [place] [address] Torrey Kwok MD [address] [place], [place] [id number] Type 2 diabetes mellitus with diabetic chronic [...] mmol/L LAB CHEMISTRY METHOD 06/09/2024 1:51 PM [facility] Potassium 3.8 3.5 - 5.5 mmol/L LAB CHEMISTRY METHOD 06/09/2024 1:51 PM [facility] Chloride 99 96 - 110 mmol/L LAB CHEMISTRY METHOD 06/09/2024 1:51 PM [facility] CO2 28 21 - 32 mmol/L LAB CHEMISTRY METHOD 06/09/2024 1:51 PM [facility] Anion Gap 10 3 - 11 LAB CHEMISTRY METHOD 06/09/2024 1:51 PM [facility] Glucose 135(H) 70 - 100 mg/dL LAB CHEMISTRY METHOD 06/09/2024 1:51 PM [facility] BUN 41(H) 5 - 25 mg/dL LAB CHEMISTRY METHOD 06/09/2024 1:51 PM [facility] Creatinine 0.99 0.50 - 1.10 mg/dL LAB CHEMISTRY METHOD 06/09/2024 1:51 PM [facility] eGFR 55(L) >=60 mL/min/1. 73m2 LAB CHEMISTRY METHOD 06/09/2024 1:51 PM [facility] Comment:Calculation based on the??Chronic Kidney Disease Epidemiology Collaboration (CKD-EPI) equation refit??without adjustment for race. BUN/Creatinine Ratio 41.4 LAB CHEMISTRY METHOD 06/09/2024 1:51 PM [facility] Calcium 9.2 8.5 - 10.5 mg/dL LAB CHEMISTRY METHOD 06/09/2024 1:51 PM [facility] Blood Venous blood specimen / Unknown Venipuncture / Unknown 06/09/2024 6:45 AM EST 06/09/2024 11:22 AM EST us Torrey Kwok MD LAB BLOOD ORDERABLES Final Resul t [facility] [address] [place] [address], [place] [phone] * (ABNORMAL) Complete blood count (06/09/2024 6:45 AM EST) WBC 9.1 4.8 - 10.8 K/mcL LAB HEMETOLOGY METHOD 06/09/2024 1:30 PM [facility] RBC 3.50(L) 3.80 - 4.80 M/mcL LAB HEMETOLOGY METHOD 06/09/2024 1:30 PM [facility] Hemoglobin 11.2(L) 11.5 - 16.0 g/dL LAB HEMETOLOGY METHOD 06/09/2024 1:30 PM [facility] Hematocrit 35.6 35.0 - 47.0 % LAB HEMETOLOGY METHOD 06/09/2024 1:30 PM [facility] MCV 101.1(H) 79.0 - 98.0 FL LAB HEMETOLOGY METHOD 06/09/2024 1:30 PM [facility] MCH 31.8 27.0 - 32.0 pcg LAB HEMETOLOGY METHOD 06/09/2024 1:30 PM [facility] MCHC 31.5(L) 32.0 - 37.0 g/dL LAB HEMETOLOGY METHOD 06/09/2024 1:30 PM [facility] RDW 18.6(H) 11.0 - 15.0 % LAB HEMETOLOGY METHOD 06/09/2024 1:30 PM [facility] Platelets 346 130 - 400 K/mcL LAB HEMETOLOGY METHOD 06/09/2024 1:30 PM EST [facility] MPV 10.5 7.0 - 11.0 FL LAB HEMETOLOGY METHOD 06/09/2024 1:30 PM EST [facility] NRBC 0.0 <1.0 % LAB HEMETOLOGY METHOD 06/09/2024 1:30 PM EST [facility] NRBC Absolute 0.00 <0.10 K/mcL LAB HEMETOLOGY METHOD 06/09/2024 1:30 PM EST [facility] Blood Venous blood specimen / Unknown Venipuncture / Unknown 06/09/2024 6:45 AM EST 06/09/2024 11:22 AM EST Torrey Kwok MD LAB BLOOD ORDERABLES Final Resul t [facility] [address] [place] [address], documented in this encounter Visit Diagnoses Diagnosis Type 2 diabetes mellitus with diabetic chronic kidney disease (CMS/HCC) Essential (primary) hypertension Unspecified essential hypertension Heart failure, unspecified (CMS/HCC) Heart failure, unspecified 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
--- OUTSIDE RECORDS SUMMARY | 2024-07-09 09:13 | XMS_ITS | Encounter Summary ---
Author Organization [facility] Address [address] [place] [address] Care Team Providers Care Parachute Folder Name Role Phone Torrey Kwok MD Primary Care Provider [phone] Encounter Details Date Type Department Care Team (Late st Contact Info) Description 05/06/2024 Lab Requisition [facility] [address] [place] [address] Torrey Kwok MD [address] [place] [address] Type 2 diabetes mellitus without complications (CMS/HCC) [...] LAB CHEMISTRY METHOD 05/07/2024 1:13 PM EST [facility] Potassium 4.1 3.5 - 5.5 mmol/L LAB CHEMISTRY METHOD 05/07/2024 1:13 PM [facility] Chloride 96 96 - 110 mmol/L LAB CHEMISTRY METHOD 05/07/2024 1:13 PM [facility] CO2 26 21 - 32 mmol/L LAB CHEMISTRY METHOD 05/07/2024 1:13 PM [facility] Anion Gap 8 3 - 11 LAB CHEMISTRY METHOD 05/07/2024 1:13 PM [facility] Glucose 271(H) 70 - 100 mg/dL LAB CHEMISTRY METHOD 05/07/2024 1:13 PM [facility] BUN 21 5 - 25 mg/dL LAB CHEMISTRY METHOD 05/07/2024 1:13 PM [facility] Creatinine 0.98 0.50 - 1.10 mg/dL LAB CHEMISTRY METHOD 05/07/2024 1:13 PM [facility] eGFR 56(L) >=60 mL/min/1. 73m2 LAB CHEMISTRY METHOD 05/07/2024 1:13 PM [facility] Comment:Calculation based on the??Chronic Kidney Disease Epidemiology Collaboration (CKD-EPI) equation refit??without adjustment for race. BUN/Creatinine Ratio 21.4 LAB CHEMISTRY METHOD 05/07/2024 1:13 PM [facility] Calcium 9.0 8.5 - 10.5 mg/dL LAB CHEMISTRY METHOD 05/07/2024 1:13 PM [facility] Blood Venous blood specimen / Unknown Venipuncture / Unknown 05/07/2024 8:42 AM EST 05/07/2024 11:51 AM EST us Torrey Kwok MD LAB BLOOD ORDERABLES Final Resul t [facility] [address] [place] [address], * (ABNORMAL) Complete blood count (05/07/2024 8:42 AM EST) [facility] WBC 9.1 4.8 - 10.8 K/mcL LAB HEMETOLOGY METHOD 05/07/2024 12:40 PM [facility] RBC 3.90 3.80 - 4.80 M/mcL LAB HEMETOLOGY METHOD 05/07/2024 12:40 PM [facility] Hemoglobin 12.4 11.5 - 16.0 g/dL LAB HEMETOLOGY METHOD 05/07/2024 12:40 PM [facility] Hematocrit 38.7 35.0 - 47.0 % LAB HEMETOLOGY METHOD 05/07/2024 12:40 PM [facility] MCV 99.2(H) 79.0 - 98.0 FL LAB HEMETOLOGY METHOD 05/07/2024 12:40 PM [facility] MCH 31.8 27.0 - 32.0 pcg LAB HEMETOLOGY METHOD 05/07/2024 12:40 PM [facility] MCHC 32.0 32.0 - 37.0 g/dL LAB HEMETOLOGY METHOD 05/07/2024 12:40 PM [facility] RDW 19.9(H) 11.0 - 15.0 % LAB HEMETOLOGY METHOD 05/07/2024 12:40 PM [facility] Platelets 384 130 - 400 K/mcL LAB HEMETOLOGY METHOD 05/07/2024 12:40 PM [facility] MPV 10.7 7.0 - 11.0 FL LAB HEMETOLOGY METHOD 05/07/2024 12:40 PM [facility] NRBC 0.0 <1.0 % LAB HEMETOLOGY METHOD 05/07/2024 12:40 PM [facility] NRBC Absolute 0.00 <0.10 K/mcL LAB HEMETOLOGY METHOD 05/07/2024 12:40 PM [facility] Blood Venous blood specimen / Unknown Venipuncture / Unknown 05/07/2024 8:42 AM EST 05/07/2024 11:51 AM EST Torrey Kwok MD LAB BLOOD ORDERABLES Final Resul t Performing Organization Address City/State/[facility] Co de Phone Number [facility] [address] [place] [address], documented in this encounter Visit Diagnoses Diagnosis Type 2 diabetes mellitus without complications documented in this encounter Care Teams Parachute Folder Relationship Specialty Start Date End Date Torrey Kwok MD [address] [place] [address] [address] [place] [address] PCP - General Geriatric Medicine 04/25/24 documented as of this encounter
--- OUTSIDE RECORDS SUMMARY | 2024-07-09 09:13 | XMS_ITS ---
Author Organization [facility] Address [address] [place] [address] Care Team Providers Care Educational Recruiter Name Role Phone Monique White MD Primary Care Provider Yane Epps Jr, John Unavailable [phone] REASON FOR VISIT refill omeprazole Medications Medication SIG (Take, Route, Frequency, Duration) Notes Start Date End Date Status Omeprazole 20 TAKE 1 CAPSULE BY MO UTH TWICE DAILY for 90 days Active Encounters Encounter Location Date Provider Diagnosis [facility] [address] [place] [phone] 07/09/2023 John Epps Jr Plan Of Treatment Medication Medication Name Sig Start Date Stop Date Notes Omeprazole 20 TAKE 1 CAPSULE BY MO UTH TWICE DAILY for 90 days Progress Notes * CHARLY SCHWARTZ RDOB:[birth year] (87 yo F)Acc No.[id number]:07/09/2023 Patient:?CHARLY SCHWARTZ :1935???Age:87 Y???Sex:Female Address:[place] [address] * Refills? Refill Omeprazole Capsule Delayed Release, 20, 180, TAKE 1 CAPSULE BY MOUTH TWICE DAILY, 90 days, Refills=3 * true * Date:? Generated for Awilda diggs/Lee/eTransmitting on:?07/09/2024 09:12 AM EDT
--- OUTSIDE RECORDS SUMMARY | 2024-07-09 09:14 | XMS_ITS | Encounter Summary ---
Author Organization [facility] Address [address] [place] [address] Care Team Providers Care Hydraulic Hammer Operator Name Role Phone Torrey Kwok MD Primary Care Provider [phone] Encounter Details Date Type Department Care Team (Late st Contact Info) Description 05/09/2024 Lab Requisition [facility] - Main Lab 299 [facility] [employer] [place] [address] Torrey Kwok MD [address] [place], [place] [id number] Type 2 diabetes mellitus with unspecified diabetic [...] Resul t [facility] [address] [place] [address], [place] [phone] * (ABNORMAL) Complete blood count (05/12/2024 5:48 [...] LAB HEMETOLOGY METHOD 05/12/2024 12:44 PM EST [facility] NRBC 0.0 <1.0 % LAB HEMETOLOGY METHOD 05/12/2024 12:44 PM EST [facility] NRBC Absolute 0.00 <0.10 K/mcL LAB HEMETOLOGY METHOD 05/12/2024 12:44 PM EST [facility] Blood Venous blood specimen / Unknown 05/12/2024 5:48 AM EST 05/12/2024 11:25 AM EST Torrey Kwok MD LAB BLOOD ORDERABLES Final Resul t [facility] [address] [place] [address], documented in this encounter Visit Diagnoses Diagnosis 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
--- OUTSIDE RECORDS SUMMARY | 2024-07-09 09:14 | XMS_ITS | Encounter Summary ---
Author Organization [facility] Address [address] [place] [address] Care Team Providers Care Coastal/Harbor Defense Officer Name Role Phone Torrey Kwok MD Primary Care Provider [phone] Encounter Details Date Type Department Care Team (Late st Contact Info) Description 07/03/2024 Lab Requisition [facility] - Main Lab 299 [facility] [place] [address] Torrey Kwok MD [address] [place] [address] Chronic kidney disease, stage 3 unspecified (CMS/HCC); Type 2 diabetes mellitus with hyperglycemia (CMS/HCC) Social History Tobacco Use Types Packs/Day [...] Procedure Name Priority Date/Time Associated Diagnosis Comments LAVENDER - EDTA Routine 07/04/2024 7:07 AM EDT Chronic kidney disease, stage 3 unspecified (CMS/HCC) Type 2 diabetes mellitus with hyperglycemia (CMS/HCC) documented in this encounter Results * Lavender tube (07/04/2024 7:07 AM EDT) Extra Tube Hold for add-ons. 07/04/2024 12:01 PM EDT [facility] Comment:Auto resulted. Blood Venous blood specimen / Unknown Venipuncture / Unknown 07/04/2024 7:07 AM EDT 07/04/2024 10:40 AM EDT Torrey Kwok MD LAB BLOOD ORDERABLES Final Resul t [facility] ([facility] [address] [place] [address], documented in this encounter Visit Diagnoses Diagnosis Chronic kidney disease, stage 3 unspecified (CMS/HCC) Type 2 diabetes mellitus with hyperglycemia (CMS/HCC) documented in this encounter Care Teams Coastal/Harbor Defense Officer Relationship Specialty Start Date End Date Torrey Kwok MD [address] [place] [address] [address] [place] [address] PCP - General Geriatric Medicine 04/25/24 documented as of this encounter
--- OUTSIDE RECORDS SUMMARY | 2024-07-09 09:14 | XMS_ITS | Patient Health Record ---
Author Organization [facility] Address [address] [place] [address] Care Team Providers Care Consulting Utility Forester Name Role Phone Po Monique HODGE Primary Care Provider John Moore Jr Unavailable [phone] Allergies Allergen (clinical drug ingredient) Drug/Non Drug [...] Active Omeprazole 20 TAKE 1 CAPSULE BY [facility] TWICE DAILY for 90 days Active Immunizations Vaccine Route Administration Date Status Comme nts Influenza Unknown 02/08/2016 Administered Influenza Unknown 02/07/2018 Administered Problems Problem Type SNOMED Code ICD Code Onset Dates Problem Status W/U Status Risk Notes Problem 285412929 Gastro-esophagea l reflux disease without esophagitis (K21.9) Active confirmed Problem 38712315 Dysphagia, unspecified type (R13.10) Active confirmed Problem 481364097 Abnormal UGI series (R93.3) Active confirmed Problem 41677091 Hypertension, unspecified type (I10) Active confirmed Plan Of Treatment Pending Test Test Name Order Date XR GI SERIES 07/20/2016 Insurance Providers Payer Name Payer Address Payer Phone Subscriber Number Group Number Insured Name Patient Relationship to Insured Coverage Start Date Coverage End Date MEDICARE OF [place] [address] [place] [address] [phone] [id number] CHARLY SCHWARTZ Self - patient is the insured [employer] CLAIMS [address] [place] [address] [id number] CHARLY SCHWARTZ Self - patient is the insured Medical (General) History Medical History History ICD Code colonoscopy 03/25/2004 diabetes mellitus osteoporosis Hypothyroidism elevated cholesterol hypertension diverticulosis internal hemorrhoids congestive heart failure urinary incontinence-mild Surgical History Surgery Date(Month/Year) cholecystectomy knee surgery section left hip replacement right knee replacement cardioversion 12/2015
--- OUTSIDE RECORDS SUMMARY | 2024-07-09 09:14 | XMS_ITS | Clinical Summary ---
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) 07/03/2024 Lab Requisition [facility] - Main Lab [address] [place] [phone] Torrey Kwok MD Chronic kidney disease, stage 3 unspecified (CMS/HCC); Type 2 diabetes mellitus with hyperglycemia (CMS/HCC) 06/28/2024 Lab Requisition [facility] Lab [address] [place] [phone] Torrey Kwok MD Type 2 diabetes mellitus with diabetic chronic kidney disease (CMS/HCC); Essential (primary) hypertension; Heart failure, unspecified (CMS/HCC); 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) 06/21/2024 Lab Requisition [facility] - Main Lab [address] [place] [phone] Torrey Kwok MD Type 2 diabetes mellitus with diabetic chronic kidney disease (CMS/HCC); Essential (primary) hypertension; Heart failure, unspecified (CMS/HCC) 06/20/2024 Lab Requisition [facility] Main Lab [address] [place] [phone] Torrey Kwok MD Essential (primary) hypertension; Type 2 diabetes mellitus without complications (CMS/HCC) 06/14/2024 Lab Requisition [facility] Lab [address] [place] [phone] Torrey Kwok MD Type 2 diabetes mellitus with diabetic chronic kidney disease (CMS/HCC); Essential (primary) hypertension; Heart failure, unspecified (CMS/HCC); 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) 06/07/2024 Lab Requisition [facility] Lab [address] [place] [phone] Torrey Kwok MD Type 2 diabetes mellitus with diabetic chronic kidney disease (CMS/HCC); Essential (primary) hypertension; Heart failure, unspecified (CMS/HCC); 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) 06/07/2024 Lab Requisition [facility] Lab [address] [place] [phone] Torrey Kwok MD Heart failure, unspecified ([facility]/HCC); Type 2 diabetes mellitus with diabetic chronic kidney disease (CMS/HCC); Chronic kidney disease, stage 3 unspecified (CMS/HCC); Vitamin D deficiency, unspecified; Essential (primary) hypertension 06/02/2024 Lab Requisition [facility] Lab [address] [place] [phone] Torrey Kwok MD Chronic diastolic (congestive) heart failure (CMS/HCC); Chronic kidney disease, stage 3 unspecified (CMS/HCC) 05/31/2024 Lab Requisition [facility] Lab [address] [place] [phone] Torrey Kwok MD Type 2 diabetes mellitus with diabetic chronic kidney disease (CMS/HCC); Essential (primary) hypertension; Heart failure, unspecified (CMS/HCC); 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 without macular edema ([facility]/HCC) 05/30/2024 Lab Requisition [facility] Main Lab [address] [place] [phone] Torrey Kwok MD Essential (primary) hypertension; Type 2 diabetes mellitus without complications (CMS/HCC) 05/24/2024 Lab Requisition [facility] Main Lab [address] [place] [phone] Torrey Kwok MD Type 2 diabetes mellitus with diabetic chronic kidney disease (CMS/HCC); Essential (primary) hypertension; Heart failure, unspecified (CMS/HCC); 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) 05/16/2024 Lab Requisition [facility] Lab [address] [place] [phone] Torrey Kwok MD Heart failure, unspecified (CMS/HCC); Essential (primary) hypertension; Type 2 diabetes mellitus with diabetic chronic kidney disease (CMS/HCC) 05/09/2024 Lab Requisition [facility] Lab [address] [place] [phone] Torrey Kwok MD 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 ([facility]/HCC); Heart failure, unspecified (CMS/HCC); Essential (primary) hypertension; Type 2 diabetes mellitus with diabetic chronic kidney disease ([facility]/HCC) 05/09/2024 Lab Requisition [facility] Lab [address] [place] [phone] Torrey Kwok MD 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 ([facility]/HCC); Heart failure, unspecified (CMS/HCC); Essential (primary) hypertension; Type 2 diabetes mellitus with diabetic chronic kidney disease (CMS/HCC) 05/06/2024 Lab Requisition [facility] Main Lab [address] [place] [phone] Torrey Kwok MD Type 2 diabetes mellitus without complications ([facility]/HCC) 05/05/2024 Lab Requisition [facility] - Main Lab [address] [place] [phone] Torrey Kwok MD Chronic kidney disease, stage 3 unspecified ([facility]); Type 2 diabetes mellitus with diabetic chronic kidney disease ([facility]/HCC) 05/01/2024 Lab Requisition [facility] Lab [address] [place] [phone] Torrey Kwok MD Type 2 diabetes mellitus without complications ([facility]/HCC) 04/30/2024 Lab Requisition [facility] Lab [address] [place] [phone] Torrey Kwok MD Type 2 diabetes mellitus without complications ([facility]/HCC) 04/29/2024 Lab Requisition [facility] Lab [address] [place] [phone] Torrey Kwok MD Dysuria 04/25/2024 Lab Requisition [facility] Lab [address] [place] [phone] Torrey Kwok MD Vitamin D deficiency, unspecified; 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 ([facility]); Heart failure, unspecified ([facility]); Essential (primary) hypertension from Last [...] Vaccines (1 of 2) 1986 RSV Immunization Adult Patients (1 - 1-dose 75+ series) 08/17/2011 COVID-19 Vaccine ( season) 2023 02/15/2021 Cholesterol Screening (Lipid Panel) 04/25/2024 Depression Screening 04/25/2024 Falls Risk Assessment 04/25/2024 Medicare Annual Wellness Visit 04/25/2024 Osteoporosis Screening (Bone Density Screening) 04/25/2024 Social Influencers of Health Screening 04/25/2024 Diabetes: Blood Sugar Control Test (HGBA1C) 10/23/2024 04/25/2024 Influenza Vaccine (Season Ended) 2024 01/31/2021, 01/28/2019, 01/07/2018, Additional history exists Hypertension/CHF/CAD Annual BMP Blood Test 07/07/2025 07/07/2024, 06/30/2024, 06/23/2024, Additional history exists HIB Vaccines Aged Out [...] Associated Diagnosis Comments BASIC METABOLIC PANEL Routine 07/07/2024 5:35 AM EDT Type 2 diabetes mellitus with diabetic chronic kidney disease (CMS/HCC) Essential (primary) hypertension Heart failure, unspecified (CMS/HCC) 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) COMPLETE BLOOD COUNT Routine 07/07/2024 5:35 AM EDT Type 2 diabetes mellitus with diabetic chronic kidney disease (CMS/HCC) Essential (primary) hypertension Heart failure, unspecified (CMS/HCC) 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) LAVENDER - EDTA Routine 07/04/2024 7:07 AM EDT Chronic kidney disease, stage 3 unspecified (CMS/HCC) Type 2 diabetes mellitus with hyperglycemia (CMS/HCC) BASIC METABOLIC PANEL Routine 06/30/2024 6:10 AM EDT Type 2 diabetes mellitus with diabetic chronic kidney disease (CMS/HCC) Essential (primary) hypertension Heart failure, unspecified (CMS/HCC) 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) COMPLETE BLOOD COUNT Routine 06/30/2024 6:10 AM EDT Type 2 diabetes mellitus with diabetic chronic kidney disease (CMS/HCC) Essential (primary) hypertension Heart failure, unspecified (CMS/HCC) 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) THYROID STIMULATING HORMONE Routine 06/23/2024 5:47 AM EDT Type 2 diabetes mellitus with diabetic chronic kidney disease (CMS/HCC) Essential (primary) hypertension Heart failure, unspecified (CMS/HCC) BASIC METABOLIC PANEL Routine 06/23/2024 5:47 AM EDT Type 2 diabetes mellitus with diabetic chronic kidney disease (CMS/HCC) Essential (primary) hypertension Heart failure, unspecified (CMS/HCC) COMPLETE BLOOD COUNT Routine 06/23/2024 5:47 AM EDT Type 2 diabetes mellitus with diabetic chronic kidney disease (CMS/HCC) Essential (primary) hypertension Heart failure, unspecified (CMS/HCC) BASIC METABOLIC PANEL Routine 06/20/2024 6:10 [...] Months Results * (ABNORMAL) Complete blood count (07/07/2024 5:35 AM EDT) Only the most recent of15 resultswithin the time period is included. WBC 6.3 4.8 - 10.8 K/mcL LAB HEMETOLOGY METHOD 07/07/2024 11:43 AM [facility] LAB RBC 2.90(L) 3.80 - 4.80 M/mcL LAB HEMETOLOGY METHOD 07/07/2024 11:43 AM [facility] LAB Hemoglobin 9.5(L) 11.5 - 16.0 g/dL LAB HEMETOLOGY METHOD 07/07/2024 11:43 AM [facility] LAB Hematocrit 30.2(L) 35.0 - 47.0 % LAB HEMETOLOGY METHOD 07/07/2024 11:43 AM [facility] LAB MCV 103.4(H) 79.0 - 98.0 FL LAB HEMETOLOGY METHOD 07/07/2024 11:43 AM [facility] LAB MCH 32.5(H) 27.0 - 32.0 pcg LAB HEMETOLOGY METHOD 07/07/2024 11:43 AM EDT [facility] LAB MCHC 31.5(L) 32.0 - 37.0 g/dL LAB HEMETOLOGY METHOD 07/07/2024 11:43 AM EDT [facility] LAB RDW 18.3(H) 11.0 - 15.0 % LAB HEMETOLOGY METHOD 07/07/2024 11:43 AM EDT [facility] LAB Platelets 312 130 - 400 K/mcL LAB HEMETOLOGY METHOD 07/07/2024 11:43 AM EDT [facility] LAB MPV 10.8 7.0 - 11.0 FL LAB HEMETOLOGY METHOD 07/07/2024 11:43 AM EDT [facility] LAB NRBC 0.0 <1.0 % LAB HEMETOLOGY METHOD 07/07/2024 11:43 AM EDT [facility] LAB NRBC Absolute 0.00 <0.10 K/mcL LAB HEMETOLOGY METHOD 07/07/2024 11:43 AM EDT [facility] LAB Blood Venous blood specimen / Unknown Venipuncture / Unknown 07/07/2024 5:35 AM EDT 07/07/2024 10:37 AM EDT us Torrey Kwok MD LAB BLOOD ORDERABLES Final Resul t [facility] LAB [address] [place] [address], * (ABNORMAL) Basic metabolic panel (07/07/2024 5:35 AM EDT) Only the most recent of15 resultswithin the time period is included. Sodium 142 133 - 145 mmol/L LAB CHEMISTRY METHOD 07/07/2024 12:00 PM EDT [facility] Potassium 4.0 3.5 - 5.5 mmol/L LAB CHEMISTRY METHOD 07/07/2024 12:00 PM EDT [facility] LAB Chloride 107 96 - 110 mmol/L LAB CHEMISTRY METHOD 07/07/2024 12:00 PM [facility] CO2 27 21 - 32 mmol/L LAB CHEMISTRY METHOD 07/07/2024 12:00 PM [facility] LAB Anion Gap 8 3 - 11 LAB CHEMISTRY METHOD 07/07/2024 12:00 PM [facility] LAB Glucose 86 70 - 100 mg/dL LAB CHEMISTRY METHOD 07/07/2024 12:00 PM [facility] BUN 37(H) 5 - 25 mg/dL LAB CHEMISTRY METHOD 07/07/2024 12:00 PM [facility] LAB Creatinine 1.13(H) 0.50 - 1.10 mg/dL LAB CHEMISTRY METHOD 07/07/2024 12:00 PM [facility] LAB eGFR 47(L) >=60 mL/min/1. 73m2 LAB CHEMISTRY METHOD 07/07/2024 12:00 PM [facility] LAB Comment:Calculation based on the??Chronic Kidney Disease Epidemiology Collaboration (CKD-EPI) equation refit??without adjustment for race. BUN/Creatinine Ratio 32.7 LAB CHEMISTRY METHOD 07/07/2024 12:00 PM [facility] LAB Calcium 8.8 8.5 - 10.5 mg/dL LAB CHEMISTRY METHOD 07/07/2024 12:00 PM [facility] LAB Blood Venous blood specimen / Unknown Venipuncture / Unknown 07/07/2024 5:35 AM EDT 07/07/2024 10:37 AM EDT us Torrey Kwok MD LAB BLOOD ORDERABLES Final Resul t [facility] LAB [address] [place] [address], * Lavender tube (07/04/2024 7:07 AM EDT) [facility] Extra Tube Hold for add-ons. 07/04/2024 12:01 PM EDT [facility] Comment:Auto resulted. Blood Venous blood specimen / Unknown Venipuncture / Unknown 07/04/2024 7:07 AM EDT 07/04/2024 10:40 AM EDT us Torrey Kwok MD LAB BLOOD ORDERABLES Final Resul t Performing Organization Address City/[facility]/ZIP Co de Phone Number [facility] LAB [address] [place] [address], [place] [phone] * (ABNORMAL) Thyroid stimulating hormone (06/23/2024 5:47 AM EDT) Only the most recent of2 resultswithin the time period is included. Pathologist [facility] TSH 21.48(H) 0.40 - 4.00 mcIU/mL LAB CHEMISTRY METHOD 06/23/2024 1:59 PM EDT [facility] Blood Venous blood specimen / Unknown Venipuncture / Unknown 06/23/2024 5:47 AM EDT 06/23/2024 11:30 AM EDT us Torrey Kwok MD LAB BLOOD ORDERABLES Final Resul t Performing Organization Address City/[facility]/ZIP Co de Phone Number [facility] [address] [place] [address], [place] [phone] * Vitamin D 25 hydroxy (06/07/2024 6:36 AM EST) Only the most recent of2 resultswithin the time period is included. Pathologist [facility] Vit D, 25-Hydroxy 41.4 30.0 - 80.0 ng/mL LAB CHEMISTRY METHOD 06/07/2024 1:29 PM EST [facility] Blood Venous blood specimen / Unknown Venipuncture / Unknown 06/07/2024 6:36 AM EST 06/07/2024 9:58 AM EST us Torrey Kwok MD LAB BLOOD ORDERABLES Final Resul t Performing Organization Address City[facility]/ZIP Co de Phone Number [facility] [address] [place] [address], [place] [phone] * Folate (06/07/2024 6:36 AM EST) Only the most recent of2 resultswithin the time period is included. Pathologist [facility] Folate 9.8 2.8 - 17.0 ng/ml LAB CHEMISTRY METHOD 06/07/2024 12:13 PM EST [facility] Blood Venous blood specimen / Unknown Venipuncture / Unknown 06/07/2024 6:36 AM EST 06/07/2024 9:58 AM EST us Torrey Kwok MD LAB BLOOD ORDERABLES Final Resul t Performing Organization Address [facility] de Phone Number [facility] [address] [place] [address], [place] [phone] * (ABNORMAL) Vitamin B12 (06/07/2024 6:36 AM EST) Only the most recent of2 resultswithin the time period is included. [facility] Vitamin B-12 1,072(H) 250 - 900 pcg/mL LAB CHEMISTRY METHOD 06/07/2024 12:13 PM EST [facility] Blood Venous blood specimen / Unknown Venipuncture / Unknown 06/07/2024 6:36 AM EST 06/07/2024 9:58 AM EST us Torrey Kwok MD LAB BLOOD ORDERABLES Final Resul t Performing Organization Address [facility] Co de Phone Number [facility] [address] [place] [address], [place] [phone] * (ABNORMAL) B-type natriuretic peptide (05/26/2024 5:59 AM EST) BNP 320(H) <=100 pcg/mL LAB CHEMISTRY METHOD 05/26/2024 1:35 PM [facility] Blood Venous blood specimen / Unknown Venipuncture / Unknown 05/26/2024 5:59 AM EST 05/26/2024 11:00 AM EST Torrey Kwok MD LAB BLOOD ORDERABLES Final Resul t [facility] [address] [place] [address], [place] [phone] * (ABNORMAL) Comprehensive metabolic panel (05/26/2024 5:59 AM EST) Only the most recent of2 resultswithin the time period is included. Pathologist [facility] Sodium 141 133 - 145 mmol/L LAB CHEMISTRY METHOD 05/26/2024 11:56 AM [facility] Potassium 3.5 3.5 - 5.5 mmol/L LAB CHEMISTRY METHOD 05/26/2024 11:56 AM [facility] Chloride 101 96 - 110 mmol/L LAB CHEMISTRY METHOD 05/26/2024 11:56 AM [facility] CO2 26 21 - 32 mmol/L LAB CHEMISTRY METHOD 05/26/2024 11:56 AM [facility] LAB Anion Gap 14(H) 3 - 11 LAB CHEMISTRY METHOD 05/26/2024 11:56 AM [facility] Glucose 200(H) 70 - 100 mg/dL LAB CHEMISTRY METHOD 05/26/2024 11:56 AM [facility] BUN 35(H) 5 - 25 mg/dL LAB CHEMISTRY METHOD 05/26/2024 11:56 AM [facility] Creatinine 1.16(H) 0.50 - 1.10 mg/dL LAB CHEMISTRY METHOD 05/26/2024 11:56 AM [facility] LAB eGFR 46(L) >=60 mL/min/1. 73m2 LAB CHEMISTRY METHOD 05/26/2024 11:56 AM [facility] Comment:Calculation based on the??Chronic Kidney Disease Epidemiology Collaboration (CKD-EPI) equation refit??without adjustment for race. BUN/Creatinine Ratio 30.2 LAB CHEMISTRY METHOD 05/26/2024 11:56 AM [facility] Calcium 8.9 8.5 - 10.5 mg/dL LAB CHEMISTRY METHOD 05/26/2024 11:56 AM [facility] AST (SGOT) 21 10 - 42 unit/L LAB CHEMISTRY METHOD 05/26/2024 11:56 AM [facility] ALT (SGPT) 20 10 - 60 unit/L LAB CHEMISTRY METHOD 05/26/2024 11:56 AM [facility] Alkaline Phosphatase 146(H) 42 - 121 unit/L LAB CHEMISTRY METHOD 05/26/2024 11:56 AM [facility] Total Protein 6.8 6.0 - 8.0 g/dL LAB CHEMISTRY METHOD 05/26/2024 11:56 AM [facility] Albumin 3.6 3.2 - 5.0 g/dL LAB CHEMISTRY METHOD 05/26/2024 11:56 AM [facility] Total Bilirubin 0.6 0.0 - 1.4 mg/dL LAB CHEMISTRY METHOD 05/26/2024 11:56 AM [facility] Blood Venous blood specimen / Unknown Venipuncture / Unknown 05/26/2024 5:59 AM EST 05/26/2024 11:00 AM EST us Torrey Kwok MD LAB BLOOD ORDERABLES Final Resul t [facility] [address] [place] [address], * (ABNORMAL) Urinalysis with reflex microscopic and culture (04/28/2024 12:15 PM EST) Specific [place] Urine 1.021 1.003 - 1.030 LAB URINALYSIS - AUTOMATED METHOD 04/29/2024 11:05 AM [facility] pH, Urine 5.5 5.0 - 8.0 pH LAB URINALYSIS - AUTOMATED METHOD 04/29/2024 11:05 AM [facility] Leukocytes, Urine Trace(A) Negative LAB URINALYSIS - AUTOMATED METHOD 04/29/2024 11:05 AM [facility] Nitrite, Urine Negative Negative LAB URINALYSIS - AUTOMATED METHOD 04/29/2024 11:05 AM [facility] Protein, Urine Trace <=Trace mg/dL LAB URINALYSIS - AUTOMATED METHOD 04/29/2024 11:05 AM [facility] Glucose, Urine >=1000(A) Negative mg/dL LAB URINALYSIS - AUTOMATED METHOD 04/29/2024 11:05 AM [facility] Ketones, Urine 15(A) Negative mg/dL LAB URINALYSIS - AUTOMATED METHOD 04/29/2024 11:05 AM [facility] Urobilinogen , Urine 0.2 0.2 - 1.0 mg/dL LAB URINALYSIS - AUTOMATED METHOD 04/29/2024 11:05 AM [facility] Bilirubin, Urine Negative Negative LAB URINALYSIS - AUTOMATED METHOD 04/29/2024 11:05 AM [facility] Blood, Urine Negative Negative LAB URINALYSIS - AUTOMATED METHOD 04/29/2024 11:05 AM [facility] RBC, Urine 0.8 0 - 4 /HPF LAB URINALYSIS - AUTOMATED METHOD 04/29/2024 11:05 AM [facility] WBC, Urine 12.6(H) 0 - 4 /HPF LAB URINALYSIS - AUTOMATED METHOD 04/29/2024 11:05 AM [facility] Squamous Epithelial, Urine 10 0 - 60 /LPF LAB URINALYSIS - AUTOMATED METHOD 04/29/2024 11:05 AM [facility] Bacteria, Urine Many(A) Negative /HPF LAB URINALYSIS - AUTOMATED METHOD 04/29/2024 11:05 AM [facility] Hyaline Casts, Urine 0.4 0 - 3 /LPF LAB URINALYSIS - AUTOMATED METHOD 04/29/2024 11:05 AM [facility] Urine Urine specimen from urinary conduit / Unknown Non-blood Collection / Unknown 04/28/2024 12:15 PM EST 04/29/2024 9:53 AM EST us Torrey Kwok MD LAB URINE ORDERABLES Final Resul t Performing Organization Address [facility] Co de Phone Number [facility] [address] [place] [address], [place] [phone] * Frost urine culture tube (04/28/2024 12:15 PM EST) Extra Tube Hold for add-ons. 04/29/2024 11:01 AM [facility] Comment:Auto resulted. Urine Urine specimen obtained by clean catch procedure / Unknown 04/28/2024 12:15 PM EST 04/29/2024 9:53 AM EST us Torrey Kwok MD LAB URINE ORDERABLES Final Resul t Performing Organization Address City/[facility]/ZIP Co de Phone Number [facility] [address] [place] [address], [place] [phone] * (ABNORMAL) Culture urine (04/28/2024 12:15 PM EST) Culture, Urine >100,000 CFU/mL Escherichia coli(A) ANDRE 05/01/2024 11:04 AM [facility] Urine Urine specimen [...] MICROBIOLOGY - GENERAL ORDER GENET Final Result [facility] [address] [place] [address], * (ABNORMAL) Hemoglobin A1c (04/25/2024 5:49 AM EST) Hemoglobin A1C 8.7(H) <6.5 % LAB CHEMISTRY METHOD 04/25/2024 1:33 PM EST [facility] Mean Bld Glu Estim. 203 mg/dL LAB CHEMISTRY METHOD 04/25/2024 1:33 PM EST [facility] Blood Venous blood specimen / Unknown Venipuncture / Unknown 04/25/2024 5:49 AM EST 04/25/2024 9:21 AM EST Torrey Kwok MD LAB BLOOD ORDERABLES Final Resul t [facility] [address] [place] [address], from Last 3 Months Insurance [address]ICARE [facility] Care Teams Supervisor [employer] Relationship Specialty Start Date End Date Torrey Kwok MD [address] [place] [address] [address] [place] [address] PCP - General Geriatric Medicine 04/25/24
--- OUTSIDE RECORDS SUMMARY | 2024-07-09 09:14 | XMS_ITS ---
Author Organization [facility] Address [address] [place] [address] Care Team Providers Care Nurse Practitioner Physician Assistant Name Role Phone Monique White Primary Care Provider Arturo Brown [phone] REASON FOR VISIT Cancel Encounters Encounter Location Date Provider Diagnosis [address] [phone] 05/05/2024 Arturo Simon Plan Of Treatment Next Appt Details Provider Name:Arturo Simon , 08/15/2024 10:15:00 AM, [address] [place], [address], Progress Notes * Gerri SCHWARTZ RDOB:[birth year] (88 yo F)Acc No.[id number]:05/05/2024 Patient:?Gerri SCHWARTZ :1935???Age:88 Y???Sex:Female Address:[place], [address] * true * Date:? Generated for Printi dontae/Lee/eTransmitting on:?07/09/2024 09:14 AM EDT
--- OUTSIDE RECORDS SUMMARY | 2024-07-09 09:14 | XMS_ITS ---
Author Organization [facility] Address [address] [place] [address] Care Team Providers Care Room Server Name Role Phone Monique White Primary Care Provider Arturo Brown Unavailable [phone] Encounters Encounter Location Date Provider Diagnosis [address] [address] 05/06/2024 Arturo Simon Plan Of Treatment Next Appt Details Provider Name:Arturo Simon , 08/15/2024 10:15:00 AM, [address] [place], [address], Progress Notes * Gerri SCHWARTZ RDOB:[birth year] (88 yo F)Acc No.[id number]:05/06/2024 Progress Note Patient:?Gerri SCHWARTZ R Provider:?Arturo Simon DPM :1935???Age:88 Y???Sex:Female D ate:05/06/2024 Address:[phone] Pcp:Monique White Subjective: * Chief Complaints: * ??? * Medical History:? Objective: * Vitals:? Assessment: Plan: * Treatment: * Images: * The named appointment provid er may or may not be the originator of this progress note, and it is not deemed complete until electronically signed by the appointment provider. Sign off status: Pending * Provider:?Arturo Simon DPM Date:?2024 Generated for Awilda diggs/Lee/Nilay on:?07/09/2024 09:14 AM EDT
--- OUTSIDE RECORDS SUMMARY | 2024-07-09 09:14 | XMS_ITS | Patient Health Record ---
Author Organization [facility] Address [address] [facility] [place] [address] Care Team Providers Care Solar Installer Technician Name Role Phone Monique White Primary Care Provider Arturo Brown Unavailable [phone] Allergies Allergen (clinical drug ingredient) Drug/Non Drug Allergy documented on EMR Reaction Allergy Type Onset Date Status codeine Codeine rapid heart beat Drug Allergy Active Reason For Referral No Information Medications Medication [...] Problem Acquired hammer toe of right foot (1977017854257519 ) Other hammer toe(s) (acquired), right foot (M20.41) Active confirmed Problem Acquired hammer toe of left foot ([id number] ) Other hammer toe(s) (acquired), left foot (M20.42) Active confirmed Problem Polyneuropathy due to diabetes mellitus type I (567786114) Type 1 diabetes mellitus with diabetic polyneuropathy (E10.42) Active confirmed Vital Signs Blood pressure diastolic 84 mm Hg 12/04/2023 Height 4 ft 10 in in 02/05/2024 Blood pressure systolic 128 mm Hg 12/04/2023 Weight 129 lbs 02/05/2024 BMI 26.96 kg/m2 02/05/2024 Procedures Procedure Date Ordered Date Performed Result Body Sit e 92907-SQMASHU NAIL, 6 OR MORE 09/21/2023 N/A 13439-Ffoaylwd Plate 09/21/2023 N/A 80212-GWBU SKIN LESIONS, 2 TO 4 09/21/2023 N/A 91017-BMBORWW NAIL, 6 OR MORE 12/04/2023 N/A 72753-ASNK SKIN LESIONS, 2 TO 4 12/04/2023 N/A 12211-QOHHOXA NAIL, 6 OR MORE 02/05/2024 N/A 36305-ACWM SKIN LESIONS, 2 TO 4 02/05/2024 N/A Encounters Encounter Location Date Provider Diagnosis [facility] [address] [place] [address] 09/21/2023 Arturo Simon Type 1 diabetes mellitus with diabetic polyneuropathy E10.42 ; Tinea unguium B35.1 and Ingrown nail L60.[address] [address] 12/04/2023 Arturo Simon Type 1 diabetes mellitus with diabetic polyneuropathy E10.42 and Tinea unguium B35.[address] [address] 02/05/2024 Arturo Simon Type 1 diabetes mellitus with diabetic polyneuropathy E10.42 ; Onychomycosis B35.1 ; Other hammer toe(s) (acquired), right foot M20.41 and Other hammer toe(s) (acquired), left foot M20.[address] [address] 08/01/2023 Arturo Simon [address] [address] 05/05/2024 Arturo Simon Assessments Encounter Date Diagnosis (ICD Code) Assessment Notes Treatment Notes Treatment Clinical Notes Section Notes 12/04/2023 Type 1 diabetes mellitus with diabetic polyneuropathy (ICD-10 - E10.42) 12/04/2023 Tinea unguium (ICD-10 - B35.1) 09/21/2023 Type 1 diabetes mellitus with diabetic polyneuropathy (ICD-10 - E10.42) 09/21/2023 Tinea unguium (ICD-10 - B35.1) 02/05/2024 Type 1 diabetes mellitus with diabetic polyneuropathy (ICD-10 - E10.42) 02/05/2024 Onychomycosis (ICD-10 - B35.1) 09/21/2023 Ingrown nail (ICD-10 [...] X ray : Foot, right 3V 06/28/2023 61596-KZAPTIG NAIL, 6 OR MORE 05/22/2023 04705-JSTVZCF NAIL, 6 OR MORE 09/21/2023 98643-LMQJPBL NAIL, 6 OR MORE 12/04/2023 28309-BMBVZSB NAIL, 6 OR MORE 02/05/2024 97742-SIJRUGG NAIL, 6 OR MORE 10/06/2014 30304-JVNDZRN NAIL, 6 OR MORE 09/16/2013 85935-HLRXPNO NAIL, 6 OR MORE 05/24/2021 65422-AUUPPET NAIL, 6 OR MORE 10/11/2021 03109-LOTGNYE NAIL, 6 OR MORE 01/10/2022 46752-OWKMZTJ NAIL, 6 OR MORE 04/18/2022 57427-XTSYUGO NAIL, 6 OR MORE 07/11/2022 76341-QSWTYPO NAIL, 6 OR MORE 10/03/2022 15797-RREPTUN NAIL, 6 OR MORE 12/12/2022 47385-XDWYNPW NAIL, 6 OR MORE 03/06/2023 66025-INTCGXN NAIL, 6 OR MORE 06/10/2013 48829-ADLAFAA NAIL, 6 OR MORE 03/05/2012 63203-LULZDVW NAIL, 6 OR MORE 12/27/2010 07043-VUXSKUX NAIL, 6 OR MORE 07/10/2017 55008-SIUXKUO NAIL, 6 OR MORE 08/12/2019 75406-QFAYUDA NAIL, 6 OR MORE 10/09/2017 28090-YLCSUOM NAIL, 6 OR MORE 03/06/2017 43289-KHYAPJG NAIL, 6 OR MORE 02/22/2021 95604-PVJQSTJ NAIL, 6 OR MORE 11/23/2020 12191-LESUTSQ NAIL, 6 OR MORE 04/30/2018 78786-WFZJHXJ NAIL, 6 OR MORE 01/05/2015 18580-DBRZBZR NAIL, 6 OR MORE 03/17/2014 19717-OKTSZYF NAIL, 6 OR MORE 06/23/2014 30753-RVBUUTT NAIL, 6 OR MORE 12/10/2012 68749-ZGUSFQS NAIL, 6 OR MORE 03/11/2013 15501-ESUVJJO NAIL, 6 OR MORE 01/06/2014 94245-RBJNHKC NAIL, 6 OR MORE 03/21/2011 44699-PGEJYRN NAIL, 6 OR MORE 06/13/2011 97139-HLNHBFU NAIL, 6 OR MORE 09/12/2011 68327-TQWJETT NAIL, 6 OR MORE 12/19/2011 79760-FZYPTAW NAIL, 6 OR MORE 05/31/2012 27041-YAVFPWB NAIL, 6 OR MORE 08/27/2012 62015-FBPJGVD NAIL, 6 OR MORE 04/20/2015 66187-DFFYTWP NAIL, 6 OR MORE 07/20/2015 78904-SMBZSGV NAIL, 6 OR MORE 10/26/2015 81777-BIXGPUY NAIL, 6 OR MORE 01/25/2016 03244-IQPZZRB NAIL, 6 OR MORE 05/23/2016 06716-XAXHYVB NAIL, 6 OR MORE 08/25/2016 70382-CWVIHKW NAIL, 6 OR MORE 12/05/2016 63078-EWVNXYT NAIL, 6 OR MORE 01/08/2018 22012-NUOHHQP NAIL, 6 OR MORE 07/30/2018 41368-WPPHTBO NAIL, 6 OR MORE 10/29/2018 71915-ECMTJHZ NAIL, 6 OR MORE 02/04/2019 92570-NTRCOMO NAIL, 6 OR MORE 05/13/2019 80496-YBMNHWL NAIL, 6 OR MORE 11/11/2019 90742-XLWVKRY NAIL, 6 OR MORE 02/17/2020 90785-JTYPJWF NAIL, 6 OR MORE 05/25/2020 55314-TCOTKTC NAIL, 6 OR MORE 08/24/2020 87877-Qjtesvuc Plate 12/05/2016 92154-Phealvlu Plate 07/20/2015 09116-Wlvuoetk Plate 05/31/2012 61514-Nszxcmmz Plate 08/27/2012 17670-Zifhztny Plate 03/21/2011 16300-Rxzblvtr Plate 06/13/2011 99445-Zeqxqszm Plate 01/06/2014 58356-Ztpourrn Plate 03/17/2014 15714-Hkohebrs Plate 01/05/2015 20537-Jxmhxwqu Plate 09/21/2023 37843-Wwdlxrqg Plate 07/10/2017 15542-Pvdnhjph Plate 09/16/2013 87397-Bnrxexmg Plate 10/06/2014 43321-Zwfyault Plate Each Additional 01/2014 73112-Mkpqcczb Plate Each Additional 07138-Dzspocuo Plate Each Additional 02470 I&D ABSCESS- SIMPLE,SINGLE 012 99125 I&D ABSCESS- SIMPLE,SINGLE 011 28375 I&D ABSCESS- SIMPLE,SINGLE 021 64491-XJRE SKIN LESIONS, 2 TO 4 04/30/19 19 03293-BIKV SKIN LESIONS, 2 TO 4 11/24/19 21 30099-ZCZZ SKIN LESIONS, 2 TO 4 02/23/20 62651-SAOA SKIN LESIONS, 2 TO 4 07/11/19 18 27786-OXBS SKIN LESIONS, 2 TO 4 03/05/20 12 26417-BRRT SKIN LESIONS, 2 TO 4 06/11/19 14 39482-HFVZ SKIN LESIONS, 2 TO 4 03/06/20 17 13636-ZVAS SKIN LESIONS, 2 TO 4 08/12/19 31052-YRBH SKIN LESIONS, 2 TO 4 10/10/19 18 30787-MTLB SKIN LESIONS, 2 TO 4 09/17/19 14 87721-DSSJ SKIN LESIONS, 2 TO 4 10/07/19 15 60018-PSNV SKIN LESIONS, 2 TO 4 02/05/20 24 75845-EVAY SKIN LESIONS, 2 TO 4 12/04/19 24 96487-PWCG SKIN LESIONS, 2 TO 4 09/21/19 24 55131-EZIB SKIN LESIONS, 2 TO 4 05/22/19 24 35207-LBOF SKIN LESIONS, 2 TO 4 03/06/20 23 08201-QSIP SKIN LESIONS, 2 TO 4 12/13/19 23 03065-WPJW SKIN LESIONS, 2 TO 4 10/04/19 23 55261-FPUD SKIN LESIONS, 2 TO 4 07/12/19 23 71177-TPBI SKIN LESIONS, 2 TO 4 04/18/19 23 08728-MPME SKIN LESIONS, 2 TO 4 01/11/20 22 79263-TEZB SKIN LESIONS, 2 TO 4 10/12/19 11850-TKDK SKIN LESIONS, 2 TO 4 05/24/19 28112-XFYY SKIN LESIONS, 2 TO 4 01/09/20 18 52392-VCGQ SKIN LESIONS, 2 TO 4 12/06/19 17 78155-GIQZ SKIN LESIONS, 2 TO 4 05/23/19 17 23597-WNJD SKIN LESIONS, 2 TO 4 08/26/19 17 44857-CUVC SKIN LESIONS, 2 TO 4 07/20/19 16 69666-EPYE SKIN LESIONS, 2 TO 4 04/20/19 16 78548-SUNG SKIN LESIONS, 2 TO 4 01/25/20 16 60641-GKQZ SKIN LESIONS, 2 TO 4 10/26/19 16 19494-FMPG SKIN LESIONS, 2 TO 4 08/25/19 21 76843-DWFX SKIN LESIONS, 2 TO 4 05/25/19 21 55998-AQIK SKIN LESIONS, 2 TO 4 02/17/20 20 97432-ERJR SKIN LESIONS, 2 TO 4 11/11/19 20 80079-KPAX SKIN LESIONS, 2 TO 4 05/13/19 20 12431-GZOT SKIN LESIONS, 2 TO 4 02/05/20 19 45524-NFIP SKIN LESIONS, 2 TO 4 10/30/19 19 84072-GHKR SKIN LESIONS, 2 TO 4 07/31/19 19 93054-TEQW SKIN LESIONS, 2 TO 4 01/07/20 14 06016-BSZU SKIN LESIONS, 2 TO 4 03/11/20 13 75851-GJQX SKIN LESIONS, 2 TO 4 12/11/19 13 79300-ZYKF SKIN LESIONS, 2 TO 4 01/06/20 15 47033-XQNB SKIN LESIONS, 2 TO 4 03/17/20 14 94693-REHH SKIN LESIONS, 2 TO 4 06/24/19 15 90181-VPSF SKIN LESIONS, 2 TO 4 08/28/19 13 18189-YOXT SKIN LESIONS, 2 TO 4 05/31/19 13 73911-ZFIY SKIN LESIONS, 2 TO 4 12/19/19 12 20617-ZKRX SKIN LESION 06/13/2011 31277-MWWX SKIN LESION 03/21/2011 62457-NFNG SKIN LESION 09/12/2011 87495-Mdwaqwnwe, Toes 06/28/2023 Next Appt Details Provider Name:Arturo Ismael VanceAlfred , 08/15/2024 10:15:00 AM, [address] [place], [address], Insurance Providers Payer Name Payer Address Payer Phone Subscriber Number Group Number Insured Name Patient Relationship to Insured Coverage Start Date Coverage End Date Medicare National Govt [facility] [address] [place] [address] [id number] Gerri Sanchez Self - patient is the insured 2 [employer] [address] [place] [address] [id number] Gerri Sanchez Self - patient is [...] Hospitalization History Reason Date(Month/Year) [facility] [place] [facility] [place] / for medication 6 [facility] cath put in 04/2015
--- OUTSIDE RECORDS SUMMARY | 2024-07-09 09:14 | XMS_ITS | Clinical Summary ---
Author Organization [facility] Address [address] [facility] [address] [place] [address] Phone Care Team Providers Care Nurse Advisor Name Role Phone Monique White MD Primary Care Provider [phone] Allergies Active Allergy Reactions Criticality Noted Date [...] PT (per her report last PT at [facility] in July-August 2020). I have encouraged [...] patient's age to complete this topic Insurance [facility] MEDICARE [facility] MEDICARE Care Teams Nurse Advisor Relationship Specialty Start Date End Date Monique White MD [facility] [address] [place] PCP - General Internal Medicine 03/11/21
--- OUTSIDE RECORDS SUMMARY | 2024-07-09 09:14 | XMS_ITS | Encounter Summary ---
Author Organization [facility] Address [address] [place] [address] Care Team Providers Care Cooker Meal Name Role Phone Torrey Kwok MD Primary Care Provider [phone] Encounter Details Date Type Department Care Team (Late st Contact Info) Description 06/21/2024 Lab Requisition [facility] - Main Lab [address] [facility] [place] [address] Torrey Kwok MD [address] [place] [address] Type 2 diabetes mellitus with diabetic chronic kidney disease (CMS/HCC); Essential (primary) hypertension; Heart failure, unspecified (CMS/HCC) Social History Tobacco Use Types [...] Associated Diagnosis Comments COMPLETE BLOOD COUNT Routine 06/23/2024 5:47 AM EDT Type 2 diabetes mellitus with diabetic chronic kidney disease (CMS/HCC) Essential (primary) hypertension Heart failure, unspecified (CMS/HCC) THYROID STIMULATING HORMONE Routine 06/23/2024 5:47 AM EDT Type 2 diabetes mellitus with diabetic chronic kidney disease (CMS/HCC) Essential (primary) hypertension Heart failure, unspecified (CMS/HCC) BASIC METABOLIC PANEL Routine 06/23/2024 5:47 AM EDT Type 2 diabetes mellitus with diabetic chronic kidney disease (CMS/HCC) Essential (primary) hypertension Heart failure, unspecified (CMS/HCC) documented in this encounter Results * (ABNORMAL) Thyroid stimulating hormone (06/23/2024 5:47 AM EDT) Pathologist [facility] TSH 21.48(H) 0.40 - 4.00 mcIU/mL LAB CHEMISTRY METHOD 06/23/2024 1:59 PM EDT [facility] Blood Venous blood specimen / Unknown Venipuncture / Unknown 06/23/2024 5:47 AM EDT 06/23/2024 11:30 AM EDT Torrey Kwok MD LAB BLOOD ORDERABLES Final Resul t [facility] [address] [place] [address], [place] [phone] * (ABNORMAL) Basic metabolic panel (06/23/2024 5:47 AM EDT) [facility] Sodium 137 133 - 145 mmol/L LAB CHEMISTRY METHOD 06/23/2024 1:47 PM [facility] Potassium 3.9 3.5 - 5.5 mmol/L LAB CHEMISTRY METHOD 06/23/2024 1:47 PM [facility] Chloride 102 96 - 110 mmol/L LAB CHEMISTRY METHOD 06/23/2024 1:47 PM T [facility] CO2 30 21 - 32 mmol/L LAB CHEMISTRY METHOD 06/23/2024 1:47 PM [facility] Anion Gap 5 3 - 11 LAB CHEMISTRY METHOD 06/23/2024 1:47 PM [facility] Glucose 70 70 - 100 mg/dL LAB CHEMISTRY METHOD 06/23/2024 1:47 PM [facility] BUN 33(H) 5 - 25 mg/dL LAB CHEMISTRY METHOD 06/23/2024 1:47 PM T [facility] Creatinine 0.86 0.50 - 1.10 mg/dL LAB CHEMISTRY METHOD 06/23/2024 1:47 PM EDT [facility] eGFR 65 >=60 mL/min/1. 73m2 LAB CHEMISTRY METHOD 06/23/2024 1:47 PM EDT [facility] Comment:Calculation based on the??Chronic Kidney Disease Epidemiology Collaboration (CKD-EPI) equation refit??without adjustment for race. BUN/Creatinine Ratio 38.4 LAB CHEMISTRY METHOD 06/23/2024 1:47 PM EDT [facility] Calcium 8.7 8.5 - 10.5 mg/dL LAB CHEMISTRY METHOD 06/23/2024 1:47 PM EDT [facility] Blood Venous blood specimen / Unknown Venipuncture / Unknown 06/23/2024 5:47 AM EDT 06/23/2024 11:30 AM EDT us Torrey Kwok MD LAB BLOOD ORDERABLES Final Resul t [facility] [address] [place] [address], * (ABNORMAL) Complete blood count (06/23/2024 5:47 AM EDT) WBC 5.9 4.8 - 10.8 K/mcL LAB HEMETOLOGY METHOD 06/23/2024 12:35 PM EDT [facility] RBC 3.00(L) 3.80 - 4.80 M/mcL LAB HEMETOLOGY METHOD 06/23/2024 12:35 PM EDT [facility] Hemoglobin 9.6(L) 11.5 - 16.0 g/dL LAB HEMETOLOGY METHOD 06/23/2024 12:35 PM EDT [facility] Hematocrit 31.2(L) 35.0 - 47.0 % LAB HEMETOLOGY METHOD 06/23/2024 12:35 PM EDT [facility] MCV 103.3(H) 79.0 - 98.0 FL LAB HEMETOLOGY METHOD 06/23/2024 12:35 PM EDT [facility] MCH 31.8 27.0 - 32.0 pcg LAB HEMETOLOGY METHOD 06/23/2024 12:35 PM EDT [facility] MCHC 30.8(L) 32.0 - 37.0 g/dL LAB HEMETOLOGY METHOD 06/23/2024 12:35 PM EDT [facility] RDW 18.7(H) 11.0 - 15.0 % LAB HEMETOLOGY METHOD 06/23/2024 12:35 PM EDT [facility] Platelets 244 130 - 400 K/mcL LAB HEMETOLOGY METHOD 06/23/2024 12:35 PM EDT [facility] MPV 11.0 7.0 - 11.0 FL LAB HEMETOLOGY METHOD 06/23/2024 12:35 PM EDT [facility] NRBC 0.0 <1.0 % LAB HEMETOLOGY METHOD 06/23/2024 12:35 PM EDT [facility] NRBC Absolute 0.00 <0.10 K/mcL LAB HEMETOLOGY METHOD 06/23/2024 12:35 PM EDT [facility] Blood Venous blood specimen / Unknown Venipuncture / Unknown 06/23/2024 5:47 AM EDT 06/23/2024 11:30 AM EDT us Torrey Kwok MD LAB BLOOD ORDERABLES Final Resul t [facility] [address] [place] [address], documented in this encounter Visit Diagnoses Diagnosis Type 2 diabetes mellitus with diabetic chronic kidney disease (CMS/HCC) Essential (primary) hypertension Unspecified essential hypertension Heart failure, unspecified (CMS/HCC) Heart failure, unspecified documented in this encounter Care Teams Cooker Meal Relationship Specialty Start Date End Date Torrey Kwok MD [address] [place] [address] [address] [place] [address] PCP - General Geriatric Medicine 04/25/24 documented as of this encounter
--- OUTSIDE RECORDS SUMMARY | 2024-07-09 09:14 | XMS_ITS | Encounter Summary ---
Author Organization [facility] Address [address] [place] [address] Care Team Providers Care Pot Operator Name Role Phone Torrey Kwok MD Primary Care Provider [phone] Encounter Details Date Type Department Care Team (Late st Contact Info) Description 06/28/2024 Lab Requisition [facility] - Main Lab [address] [facility] [place] [address] Torrey Kwok MD [address] [place], [place] [id number] Type 2 diabetes mellitus with diabetic chronic [...] Associated Diagnosis Comments COMPLETE BLOOD COUNT Routine 06/30/2024 6:10 AM EDT Type 2 diabetes mellitus with diabetic chronic kidney disease (CMS/HCC) Essential (primary) hypertension Heart failure, unspecified (CMS/HCC) 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) BASIC METABOLIC PANEL Routine 06/30/2024 6:10 AM EDT Type 2 diabetes mellitus with diabetic chronic kidney disease (CMS/HCC) Essential (primary) hypertension Heart failure, unspecified (CMS/HCC) 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) documented in this encounter Results * (ABNORMAL) Basic metabolic panel (06/30/2024 6:10 AM EDT) Sodium 142 133 - 145 mmol/L LAB CHEMISTRY METHOD 06/30/2024 12:00 PM [facility] Potassium 4.1 3.5 - 5.5 mmol/L LAB CHEMISTRY METHOD 06/30/2024 12:00 PM [facility] Chloride 106 96 - 110 mmol/L LAB CHEMISTRY METHOD 06/30/2024 12:00 PM [facility] CO2 28 21 - 32 mmol/L LAB CHEMISTRY METHOD 06/30/2024 12:00 PM [facility] Anion Gap 8 3 - 11 LAB CHEMISTRY METHOD 06/30/2024 12:00 PM [facility] Glucose 159(H) 70 - 100 mg/dL LAB CHEMISTRY METHOD 06/30/2024 12:00 PM [facility] BUN 47(H) 5 - 25 mg/dL LAB CHEMISTRY METHOD 06/30/2024 12:00 PM [facility] Creatinine 1.11(H) 0.50 - 1.10 mg/dL LAB CHEMISTRY METHOD 06/30/2024 12:00 PM [facility] eGFR 48(L) >=60 mL/min/1. 73m2 LAB CHEMISTRY METHOD 06/30/2024 12:00 PM [facility] Comment:Calculation based on the??Chronic Kidney Disease Epidemiology Collaboration (CKD-EPI) equation refit??without adjustment for race. BUN/Creatinine Ratio 42.3 LAB CHEMISTRY METHOD 06/30/2024 12:00 PM [facility] Calcium 8.8 8.5 - 10.5 mg/dL LAB CHEMISTRY METHOD 06/30/2024 12:00 PM [facility] Blood Venous blood specimen / Unknown Venipuncture / Unknown 06/30/2024 6:10 AM EDT 06/30/2024 11:01 AM EDT us Torrey Kwok MD LAB BLOOD ORDERABLES Final Resul t [facility] [address] [place] [address], * (ABNORMAL) Complete blood count (06/30/2024 6:10 AM EDT) [facility] WBC 6.0 4.8 - 10.8 K/mcL LAB HEMETOLOGY METHOD 06/30/2024 11:46 AM EDT [facility] RBC 2.90(L) 3.80 - 4.80 M/mcL LAB HEMETOLOGY METHOD 06/30/2024 11:46 AM [facility] Hemoglobin 9.5(L) 11.5 - 16.0 g/dL LAB HEMETOLOGY METHOD 06/30/2024 11:46 AM [facility] Hematocrit 29.9(L) 35.0 - 47.0 % LAB HEMETOLOGY METHOD 06/30/2024 11:46 AM [facility] MCV 101.7(H) 79.0 - 98.0 FL LAB HEMETOLOGY METHOD 06/30/2024 11:46 AM [facility] MCH 32.3(H) 27.0 - 32.0 pcg LAB HEMETOLOGY METHOD 06/30/2024 11:46 AM [facility] MCHC 31.8(L) 32.0 - 37.0 g/dL LAB HEMETOLOGY METHOD 06/30/2024 11:46 AM [facility] RDW 18.5(H) 11.0 - 15.0 % LAB HEMETOLOGY METHOD 06/30/2024 11:46 AM [facility] Platelets 309 130 - 400 K/mcL LAB HEMETOLOGY METHOD 06/30/2024 11:46 AM EDT [facility] MPV 10.7 7.0 - 11.0 FL LAB HEMETOLOGY METHOD 06/30/2024 11:46 AM EDT [facility] NRBC 0.0 <1.0 % LAB HEMETOLOGY METHOD 06/30/2024 11:46 AM EDT [facility] NRBC Absolute 0.00 <0.10 K/mcL LAB HEMETOLOGY METHOD 06/30/2024 11:46 AM EDT [facility] Blood Venous blood specimen / Unknown Venipuncture / Unknown 06/30/2024 6:10 AM EDT 06/30/2024 11:01 AM EDT Torrey Kwok MD LAB BLOOD ORDERABLES Final Resul t [facility] [address] [place] [address], documented in this encounter Visit Diagnoses Diagnosis Type 2 diabetes mellitus with diabetic chronic kidney disease (CMS/HCC) Essential (primary) hypertension Unspecified essential hypertension Heart failure, unspecified (CMS/HCC) Heart failure, unspecified 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
--- OUTSIDE RECORDS SUMMARY | 2024-07-09 09:14 | XMS_ITS | Encounter Summary ---
Author Organization [facility] Address [id number] [place] [id number] Care Team Providers Care Truck Hopper Name Role Phone Torrey Kwok MD Primary Care Provider [phone] Encounter Details Date Type Department Care Team (Late st Contact Info) Description 07/05/2024 Lab Requisition [facility] - Main Lab 299 [facility] [place] [place] [address] Torrey Kwok MD [address] [place], [place] [id number] Type 2 diabetes mellitus with diabetic chronic [...] Associated Diagnosis Comments COMPLETE BLOOD COUNT Routine 07/07/2024 5:35 AM EDT Type 2 diabetes mellitus with diabetic chronic kidney disease (CMS/HCC) Essential (primary) hypertension Heart failure, unspecified (CMS/HCC) 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) BASIC METABOLIC PANEL Routine 07/07/2024 5:35 AM EDT Type 2 diabetes mellitus with diabetic chronic kidney disease (CMS/HCC) Essential (primary) hypertension Heart failure, unspecified (CMS/HCC) 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) documented in this encounter Results * (ABNORMAL) Basic metabolic panel (07/07/2024 5:35 AM EDT) Sodium 142 133 - 145 mmol/L LAB CHEMISTRY METHOD 07/07/2024 12:00 PM [facility] Potassium 4.0 3.5 - 5.5 mmol/L LAB CHEMISTRY METHOD 07/07/2024 12:00 PM [facility] Chloride 107 96 - 110 mmol/L LAB CHEMISTRY METHOD 07/07/2024 12:00 PM [facility] CO2 27 21 - 32 mmol/L LAB CHEMISTRY METHOD 07/07/2024 12:00 PM [facility] Anion Gap 8 3 - 11 LAB CHEMISTRY METHOD 07/07/2024 12:00 PM [facility] Glucose 86 70 - 100 mg/dL LAB CHEMISTRY METHOD 07/07/2024 12:00 PM [facility] BUN 37(H) 5 - 25 mg/dL LAB CHEMISTRY METHOD 07/07/2024 12:00 PM [facility] Creatinine 1.13(H) 0.50 - 1.10 mg/dL LAB CHEMISTRY METHOD 07/07/2024 12:00 PM [facility] eGFR 47(L) >=60 mL/min/1. 73m2 LAB CHEMISTRY METHOD 07/07/2024 12:00 PM [facility] Comment:Calculation based on the??Chronic Kidney Disease Epidemiology Collaboration (CKD-EPI) equation refit??without adjustment for race. BUN/Creatinine Ratio 32.7 LAB CHEMISTRY METHOD 07/07/2024 12:00 PM [facility] Calcium 8.8 8.5 - 10.5 mg/dL LAB CHEMISTRY METHOD 07/07/2024 12:00 PM [facility] Blood Venous blood specimen / Unknown Venipuncture / Unknown 07/07/2024 5:35 AM EDT 07/07/2024 10:37 AM EDT Torrey Kwok MD LAB BLOOD ORDERABLES Final Resul t [facility] [address] [place] [address], * (ABNORMAL) Complete blood count (07/07/2024 5:35 AM EDT) [facility] WBC 6.3 4.8 - 10.8 K/mcL LAB HEMETOLOGY METHOD 07/07/2024 11:43 AM EDT [facility] RBC 2.90(L) 3.80 - 4.80 M/mcL LAB HEMETOLOGY [facility] Hemoglobin 9.5(L) 11.5 - 16.0 g/dL LAB HEMETOLOGY METHOD 07/07/2024 11:43 AM T [facility] Hematocrit 30.2(L) 35.0 - 47.0 % LAB HEMETOLOGY METHOD 07/07/2024 11:43 AM [facility] MCV 103.4(H) 79.0 - 98.0 FL LAB HEMETOLOGY METHOD 07/07/2024 11:43 AM EDT [facility] MCH 32.5(H) 27.0 - 32.0 pcg LAB HEMETOLOGY METHOD 07/07/2024 11:43 AM T [facility] MCHC 31.5(L) 32.0 - 37.0 g/dL LAB HEMETOLOGY METHOD 07/07/2024 11:43 AM [facility] RDW 18.3(H) 11.0 - 15.0 % LAB HEMETOLOGY METHOD 07/07/2024 11:43 AM EDT [facility] Platelets 312 130 - 400 K/mcL LAB HEMETOLOGY METHOD 07/07/2024 11:43 AM EDT [facility] MPV 10.8 7.0 - 11.0 FL LAB HEMETOLOGY METHOD 07/07/2024 11:43 AM EDT [facility] NRBC 0.0 <1.0 % LAB HEMETOLOGY METHOD 07/07/2024 11:43 AM EDT [facility] NRBC Absolute 0.00 <0.10 K/mcL LAB HEMETOLOGY METHOD 07/07/2024 11:43 AM EDT [facility] Blood Venous blood specimen / Unknown Venipuncture / Unknown 07/07/2024 5:35 AM EDT 07/07/2024 10:37 AM EDT us Torrey Kwok MD LAB BLOOD ORDERABLES Final Resul t [facility] [address] [place] [address], documented in this encounter Visit Diagnoses Diagnosis Type 2 diabetes mellitus with diabetic chronic kidney disease (CMS/HCC) Essential (primary) hypertension Unspecified essential hypertension Heart failure, unspecified (CMS/HCC) Heart failure, unspecified 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
--- OUTSIDE RECORDS SUMMARY | 2024-07-09 09:14 | XMS_ITS | Encounter Summary ---
Author Organization [facility] Address [id number] [place] [phone] Care Team Providers Care Sales Assistant Displays Name Role Phone Torrey Kwok MD Primary Care Provider [phone] Encounter Details Date Type Department Care Team (Late st Contact Info) Description 06/20/[address] [facility] - Main Lab 299 [facility] [email or web address] [address] Torrey Kwok MD [address] [place] [address] Essential (primary) hypertension; Type 2 diabetes mellitus [...] LAB CHEMISTRY METHOD 06/20/2024 11:38 AM EDT [facility] Potassium 4.1 3.5 - 5.5 mmol/L LAB CHEMISTRY METHOD 06/20/2024 11:38 AM [facility] Chloride 104 96 - 110 mmol/L LAB CHEMISTRY METHOD 06/20/2024 11:38 AM [facility] CO2 29 21 - 32 mmol/L LAB CHEMISTRY METHOD 06/20/2024 11:38 AM [facility] Anion Gap 5 3 - 11 LAB CHEMISTRY METHOD 06/20/2024 11:38 AM [facility] Glucose 53(L) 70 - 100 mg/dL LAB CHEMISTRY METHOD 06/20/2024 11:38 AM [facility] BUN 39(H) 5 - 25 mg/dL LAB CHEMISTRY METHOD 06/20/2024 11:38 AM [facility] Creatinine 0.97 0.50 - 1.10 mg/dL LAB CHEMISTRY METHOD 06/20/2024 11:38 AM [facility] eGFR 57(L) >=60 mL/min/1. 73m2 LAB CHEMISTRY METHOD 06/20/2024 11:38 AM [facility] Comment:Calculation based on the??Chronic Kidney Disease Epidemiology Collaboration (CKD-EPI) equation refit??without adjustment for race. BUN/Creatinine Ratio 40.2 LAB CHEMISTRY METHOD 06/20/2024 11:38 AM [facility] Calcium 9.2 8.5 - 10.5 mg/dL LAB CHEMISTRY METHOD 06/20/2024 11:38 AM [facility] Blood Venous blood specimen / Unknown Venipuncture / Unknown 06/20/2024 6:10 AM EDT 06/20/2024 10:40 AM EDT us Torrey Kwok MD LAB BLOOD ORDERABLES Final Resul t [facility] [address] [place] [address], [place] [phone] * (ABNORMAL) Complete blood count (06/20/2024 6:10 AM EDT) [facility] WBC 6.5 4.8 - 10.8 K/mcL LAB HEMETOLOGY METHOD 06/20/2024 11:08 AM [facility] RBC 3.70(L) 3.80 - 4.80 M/mcL LAB HEMETOLOGY METHOD 06/20/2024 11:08 AM [facility] Hemoglobin 12.0 11.5 - 16.0 g/dL LAB HEMETOLOGY METHOD 06/20/2024 11:08 AM [facility] Hematocrit 37.1 35.0 - 47.0 % LAB HEMETOLOGY METHOD 06/20/2024 11:08 AM [facility] MCV 100.5(H) 79.0 - 98.0 FL LAB HEMETOLOGY METHOD 06/20/2024 11:08 AM [facility] MCH 32.5(H) 27.0 - 32.0 pcg LAB HEMETOLOGY METHOD 06/20/2024 11:08 AM [facility] MCHC 32.3 32.0 - 37.0 g/dL LAB HEMETOLOGY METHOD 06/20/2024 11:08 AM [facility] RDW 18.3(H) 11.0 - 15.0 % LAB HEMETOLOGY METHOD 06/20/2024 11:08 AM [facility] Platelets 313 130 - 400 K/mcL LAB HEMETOLOGY METHOD 06/20/2024 11:08 AM [facility] MPV 10.8 7.0 - 11.0 FL LAB HEMETOLOGY METHOD 06/20/2024 11:08 AM [facility] NRBC 0.0 <1.0 % LAB HEMETOLOGY METHOD 06/20/2024 11:[address] [facility] NRBC Absolute 0.00 <0.10 K/mcL LAB HEMETOLOGY METHOD 06/20/2024 11:[address] [facility] Blood Venous blood specimen / Unknown Venipuncture / Unknown 06/20/2024 6:10 AM EDT 06/20/2024 10:40 AM EDT Torrey Kwok MD LAB BLOOD ORDERABLES Final Resul t [facility] [address] [place] [address], documented in this encounter Visit Diagnoses Diagnosis Essential (primary) hypertension Unspecified essential hypertension Type 2 diabetes mellitus without complications documented in this encounter Care Teams Sales Assistant Displays Relationship Specialty Start Date End Date Torrey Kwok MD [address] [place] [address] [address] [place] [address] PCP - General Geriatric Medicine 04/25/24 documented as of this encounter
== END 2024-07-09 08:44 | disposition home or self-care (01) ==
LOC: HO.HOSX 08:43
PROVIDERS: Visit Provider Physician Assistant
DX: S72.001D Fracture of unspecified part of neck of right femur, subsequent encounter for closed fracture with routine healing (principal); Z98.890 Other specified postprocedural states; Z96.651 Presence of right artificial knee joint
CPT/HCPCS: 73552; 99212

== ENCOUNTER 2024-07-09 10:01 | Outpatient (AMB) | payer MEDICARE, SELFPAY ==
--- NOTE | 2024-07-09 10:05 | MHC.OFFVIS ---
Intake Visit Reasons: PO- RT hip IMN, DOS 04/20/24 NE w/ XR Intake Note: Gerri is an 88 year old female who presents today with her daughter for a post operative visit s/p right hip IMN, DOS 04/20/24 NE. X-rays updated. At patient last visit she was instructed to follow up in 6 weeks with new x-rays. Patient reports having mild pain in her hip. Finds relief with gabapentin 100mg BID as well as taking Tylenol. She continue to work with PT. Allergies codeine Allergy (Intermediate, Verified 07/09/24 10:05) TACHYCARDIA nitrofurantoin [Macrobid] Allergy (Unknown, Verified 07/09/24 10:05) confusion pravastatin Allergy (Unknown, Verified 07/09/24 10:05) Unknown rosuvastatin [Crestor] Allergy (Unknown, Verified 07/09/24 10:05) Unknown Sulfa (Sulfonamide Antibiotics) Allergy (Unknown, Verified 07/09/24 10:05) unknown sulfamethoxazole [From Bactrim] Allergy (Unknown, Verified 07/09/24 10:05) Unknown trimethoprim [From Bactrim] Allergy (Unknown, Verified 07/09/24 10:05) Unknown amlodipine Adverse Reaction (Intermediate, Verified 07/09/24 10:05) leg swelling digoxin Adverse Reaction (Intermediate, Verified 07/09/24 10:05) Confusion Medication List - Last Reviewed 07/09/24 by DANGELO Zamora acetaminophen 1,000 mg PO TID PRN amiodarone 200 mg PO DAILY 90 days calcitriol 0.25 mcg PO Q48H cholecalciferol (vitamin D3) 25 mcg PO DAILY dextrose (Dex4 Glucose) grams PO flash glucose sensor (FreeStyle Madeline 14 Day Sensor kit) Dx: E11.65 As directed, 14 days flash glucose sensor (FreeStyle Madeline 14 Day Sensor kit) As directed furosemide 20 mg PO DAILY gabapentin 100 mg PO BID glycerin (adult) 1 supp MO DAILY PRN insulin glargine U-300 conc (Toujeo SoloStar U-300 Insulin) 12 units subcut DAILY insulin lispro (Humalog KwikPen (U-100) Insulin) 1 sliding scale dose See Protocol subcut TIDAC lactulose 30 mL PO DAILY PRN levothyroxine 125 mcg PO DAILY@0600 melatonin mg PO .8 pm PRN metoprolol succinate ER 25 mg PO BEDTIME PRN metoprolol succinate ER 100 mg PO DAILY 90 days pen needle, diabetic (BD Eveline 2nd Gen Pen Needle) USEN TO INJECT INSULIN FOUR TIMES DAILY rivaroxaban (Xarelto) 15 mg PO DAILY@1700 simvastatin 10 mg PO BEDTIME tramadol 50 mg PO DAILY PRN travoprost 0.004% 1 drp ophthalmic (eye) BEDTIME HPI HPI PO- RT hip IMN, DOS 04/20/24 NE w/ XR: Details: The patient is an 88-year-old female who returns to the office today approx 3 months follow-up after a right hip IMN 04/20/24. Since her surgery , she has encountered challenges with mobility, still requiring assistance from another person in addition to using a walker. The patient's recovery is progressing, as seen through x-ray imaging indicating good healing with callus formation. However, she still needs support and has not regained full independence. Her confidence and energy are focal points, as they play a significant role in her overall recovery advancement. Currently, efforts to enhance her ability to perform daily activities, like transferring in and out of vehicles, are ongoing, including the introduction of tools such as a step stool. [facility] Medical History Urinary tract infection with fever Persistent atrial fibrillation Left thigh pain Abdominal mass, LUQ (left upper quadrant) Iliotibial band syndrome of left side UTI (urinary tract infection) Herpes zoster Orthostatic hypotension Acute hyponatremia Weakness COVID-19 Breast asymmetry Atrial fibrillation with rapid ventricular response Hyperkalemia Essential hypertension Atherosclerotic cardiovascular disease Chronic heart failure with preserved ejection fraction (HFpEF) Iliotibial band syndrome of right side Disc degeneration, lumbar Cognitive dysfunction 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 Atrial fibrillation Osteopenia Hypothyroid Spinal stenosis of lumbar region Degenerative disc disease, lumbar Type 2 diabetes mellitus with hyperglycemia Surgical History History of removal of cyst History of appendectomy History of eye surgery History of cataract surgery History of cholecystectomy History of section History of knee replacement History of hip replacement Family History Father CVD (cardiovascular disease) Mother CVD (cardiovascular disease) Stroke Social History Household Members: None Household Members Other:: son comes 3 days a week, daughter lives 5 minutes away visits frequently Housing: House Do you presently have visiting nurse or other home services: No Alcohol intake: never Comment: post cardioversion Patient Tobacco Use Status: Former Tobacco user Tobacco use type: Cigarette Years Smoked: <1 e-Cigarette/Vaping Use: Former Use Second Hand Smoke Exposure: No Advance Directives Date on File: 08/29/21 service: No Current occupational status: retired Cognitive needs: Yes (Walker) Hearing needs: No Vision needs: Yes Review of Systems Const All systems reviewed & are unremarkable except as noted in HPI and below Physical Exam Const General: cooperative, healthy appearing and no acute distress Resp Effort & Inspection: normal respiratory effort and able to speak in complete sentences Cardio Rate: regular rate Peripheral pulses: Peripheral pulses 2+ throughout Extrem Other: Right hip prior incision site is well approximated and healed. There is no surrounding erythema or drainage. No signs of infection. No pain with hip flexion or ROM. NVI. Results Reviewed Results Reviewed: Xrays were obtained in the office today and personally reviewed by me of the right hip show intact IMN with callus formation Assessment & Plan Assessment & Plan (1) Closed right hip fracture: Code(s): S72.001A - Fracture of unspecified part of neck of right femur, initial encounter for closed fracture Category: Medical Plan: We discussed the ongoing need for physical therapy to enhance the patient's strength, focusing on upper body conditioning to improve her daily functional activities. Strategies for easier vehicle access we discussed. We addressed the importance of building her confidence and working with PT/Ot, as part of her comprehensive recovery strategy. No immediate follow-up was scheduled, but she was advised to seek consultation if she encounters any worsening symptoms or concerns. Orders: Orders XR femur RT 2V Today S72.90XA - Unspecified fracture of unspecified femur, initial encounter for closed fracture Coding Level of Care Code Global (80700) Diagnoses Closed right hip fracture S72.001A
--- OUTSIDE RECORDS SUMMARY | 2024-07-09 11:34 | XMS_ITS | Encounter Summary ---
Author Organization [facility] Address [address] [place] [phone] Care Team Providers Care Pilot Plant Operator Helper Name Role Phone Torrey Kwok MD Primary Care Provider [phone] Encounter Details Date Type Department Care Team (Late st Contact Info) Description 05/24/2024 Lab Requisition [facility] - Main Lab 299 [facility] [place] [address] Torrey Kwok MD [address] [place], [place] [id number] Type 2 diabetes mellitus with diabetic chronic [...] Final Resul t [facility] [address] [place] [address], * (ABNORMAL) B-type natriuretic peptide (05/26/2024 5:59 AM EST) BNP 320(H) <=100 pcg/mL LAB CHEMISTRY METHOD 05/26/2024 1:35 PM [facility] Blood Venous blood specimen / Unknown Venipuncture / Unknown 05/26/2024 5:59 AM EST 05/26/2024 11:00 AM EST us Torrey Kwko MD LAB BLOOD ORDERABLES Final Resul t [facility] [address] [place] [address], [place] [phone] * (ABNORMAL) Basic metabolic panel (05/26/2024 5:59 AM EST) [facility] Sodium 141 133 - 145 mmol/L [...] LAB CHEMISTRY METHOD 05/26/2024 11:50 AM EST [facility] Comment:Calculation based on the??Chronic [...] Final Resul t [facility] [address] [place] [address], * (ABNORMAL) Complete blood count (05/26/2024 5:59 [...] LAB HEMETOLOGY METHOD 05/26/2024 11:12 AM EST [facility] MCHC 31.5(L) 32.0 - 37.0 g/dL LAB HEMETOLOGY METHOD 05/26/2024 11:12 AM [facility] RDW 19.8(H) 11.0 - 15.0 % LAB HEMETOLOGY METHOD 05/26/2024 11:12 AM [facility] Platelets 418(H) 130 - 400 K/mcL LAB HEMETOLOGY METHOD 05/26/2024 11:12 AM EST [facility] MPV 10.0 7.0 - 11.0 [...] Final Resul t [facility] [address] [place] [address], documented in this encounter Visit Diagnoses Diagnosis Type 2 diabetes mellitus with diabetic chronic kidney disease (CMS/HCC) Essential (primary) hypertension Unspecified essential hypertension Heart failure, unspecified (CMS/HCC) Heart failure, unspecified 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
--- OUTSIDE RECORDS SUMMARY | 2024-07-09 11:34 | XMS_ITS | Encounter Summary ---
Author Organization [facility] Address [address] [place] [phone] Care Team Providers Care Splitter Operator Name Role Phone Torrey Kwok MD Primary Care Provider [phone] Encounter Details Date Type Department Care Team (Late st Contact Info) Description 04/25/2024 Lab Requisition [facility] - Main Lab 299 [facility] [place] [address] Torrey Kwok MD [address] [place], [place] [id number] Vitamin D deficiency, unspecified; Type 2 diabetes [...] Resul t [facility] [address] [place] [address], [place] [phone] * Thyroid stimulating hormone (04/25/2024 5:49 AM EST) TSH 3.04 0.40 - 4.00 mcIU/mL LAB CHEMISTRY METHOD 04/25/2024 10:35 AM EST [facility] Blood Venous blood specimen / Unknown Venipuncture / Unknown 04/25/2024 5:49 AM EST 04/25/2024 9:21 AM EST us Torrey Kwok MD LAB BLOOD ORDERABLES Final Resul t [facility] [address] [place] [address], [place] [phone] * Folate (04/25/2024 5:49 AM EST) Folate 12.8 2.8 - 17.0 ng/ml LAB CHEMISTRY METHOD 04/25/2024 11:26 AM EST [facility] Blood Venous blood specimen / Unknown Venipuncture / Unknown 04/25/2024 5:49 AM EST 04/25/2024 9:21 AM EST us Torrey Kwok MD LAB BLOOD ORDERABLES Final Resul t [facility] [address] [place] [address], [place] [phone] * Vitamin B12 (04/25/2024 5:49 AM EST) Vitamin B-12 711 250 - 900 pcg/mL LAB CHEMISTRY METHOD 04/25/2024 11:26 AM EST [facility] Blood Venous blood specimen / Unknown Venipuncture / Unknown 04/25/2024 5:49 AM EST 04/25/2024 9:21 AM EST us Torrey Kwok MD LAB BLOOD ORDERABLES Final Resul t Performing Organization Address City/[facility]/ZIP Co de Phone Number [facility] [address] [place] [address], [place] [phone] * (ABNORMAL) Hemoglobin A1c (04/25/2024 5:49 AM EST) Pathologist [facility] Hemoglobin A1C 8.7(H) <6.5 % LAB CHEMISTRY METHOD 04/25/2024 1:33 PM EST [facility] Mean Bld Glu Estim. 203 mg/dL LAB CHEMISTRY METHOD 04/25/2024 1:33 PM [facility] Blood Venous blood specimen / Unknown Venipuncture / Unknown 04/25/2024 5:49 AM EST 04/25/2024 9:21 AM EST us Torrey Kwok MD LAB BLOOD ORDERABLES Final Resul t Performing Organization Address City/[facility]/ZIP Co de Phone Number [facility] [address] [place] [address], [place] [phone] * (ABNORMAL) Comprehensive metabolic panel (04/25/2024 5:49 AM EST) [facility] Sodium 135 133 - 145 mmol/L LAB CHEMISTRY METHOD 04/25/2024 11:26 AM [facility] Potassium 4.0 3.5 - 5.5 mmol/L LAB CHEMISTRY METHOD 04/25/2024 11:26 AM [facility] Chloride 98 96 - 110 mmol/L LAB CHEMISTRY METHOD 04/25/2024 11:26 AM [facility] CO2 30 21 - 32 mmol/L LAB CHEMISTRY METHOD 04/25/2024 11:26 AM [facility] Anion Gap 7 3 - 11 LAB CHEMISTRY METHOD 04/25/2024 11:26 AM [facility] Glucose 290(H) 70 - 100 mg/dL LAB CHEMISTRY METHOD 04/25/2024 11:26 AM [facility] BUN 25 5 - 25 mg/dL LAB CHEMISTRY METHOD 04/25/2024 11:26 AM [facility] Creatinine 1.06 0.50 - 1.10 mg/dL LAB CHEMISTRY METHOD 04/25/2024 11:26 AM [facility] eGFR 51(L) >=60 mL/min/1. 73m2 LAB CHEMISTRY METHOD 04/25/2024 11:26 AM [facility] Comment:Calculation based on the??Chronic Kidney Disease Epidemiology Collaboration (CKD-EPI) equation refit??without adjustment for race. BUN/Creatinine Ratio 23.6 LAB CHEMISTRY METHOD 04/25/2024 11:26 AM [facility] Calcium 8.2(L) 8.5 - 10.5 mg/dL LAB CHEMISTRY METHOD 04/25/2024 11:26 AM [facility] AST (SGOT) 17 10 - 42 unit/L LAB CHEMISTRY METHOD 04/25/2024 11:26 AM [facility] ALT (SGPT) 16 10 - 60 unit/L LAB CHEMISTRY METHOD 04/25/2024 11:26 AM [facility] Alkaline Phosphatase 81 42 - 121 unit/L LAB CHEMISTRY METHOD 04/25/2024 11:26 AM [facility] Total Protein 5.3(L) 6.0 - 8.0 g/dL LAB CHEMISTRY METHOD 04/25/2024 11:26 AM [facility] Albumin 2.7(L) 3.2 - 5.0 g/dL LAB CHEMISTRY METHOD 04/25/2024 11:26 AM [facility] Total Bilirubin 1.2 0.0 - 1.4 mg/dL LAB CHEMISTRY METHOD 04/25/2024 11:26 AM [facility] Blood Venous blood specimen / Unknown Venipuncture / Unknown 04/25/2024 5:49 AM EST 04/25/2024 9:21 AM EST us Torrey Kwok MD LAB BLOOD ORDERABLES Final Resul t [facility] [address] [place] [address], * (ABNORMAL) Complete blood count (04/25/2024 5:49 AM EST) WBC 7.7 4.8 - 10.8 K/mcL LAB HEMETOLOGY METHOD 04/25/2024 10:07 AM [facility] RBC 2.90(L) 3.80 - 4.80 M/mcL LAB HEMETOLOGY METHOD 04/25/2024 10:07 AM [facility] Hemoglobin 9.1(L) 11.5 - 16.0 g/dL LAB HEMETOLOGY METHOD 04/25/2024 10:07 AM [facility] Hematocrit 27.7(L) 35.0 - 47.0 % LAB HEMETOLOGY METHOD 04/25/2024 10:07 AM [facility] MCV 94.9 79.0 - 98.0 FL LAB HEMETOLOGY METHOD 04/25/2024 10:07 AM [facility] MCH 31.2 27.0 - 32.0 pcg LAB HEMETOLOGY METHOD 04/25/2024 10:07 AM [facility] MCHC 32.9 32.0 - 37.0 g/dL LAB HEMETOLOGY METHOD 04/25/2024 10:07 AM [facility] RDW 15.5(H) 11.0 - 15.0 % LAB HEMETOLOGY METHOD 04/25/2024 10:07 AM [facility] Platelets 214 130 - 400 K/mcL LAB HEMETOLOGY METHOD 04/25/2024 10:07 AM [facility] MPV 10.8 7.0 - 11.0 [...] Resul t [facility] [address] [place] [address], documented in this encounter Visit Diagnoses Diagnosis Vitamin D deficiency, unspecified 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
--- OUTSIDE RECORDS SUMMARY | 2024-07-09 11:34 | XMS_ITS | Encounter Summary ---
Author Organization [facility] Address [address] [place] [address] Care Team Providers Care Mud Mixer Helper Name Role Phone Torrey Kwok MD Primary Care Provider [phone] Encounter Details Date Type Department Care Team (Late st Contact Info) Description 06/14/2024 Lab Requisition [facility] - Main Lab 299 [facility] [employer] [facility] [employer] [place] [address] Torrey Kwok MD [address] [place], [place] [id number] Type 2 diabetes mellitus with diabetic chronic [...] mmol/L LAB CHEMISTRY METHOD 06/16/2024 11:54 AM [facility] Potassium 4.2 3.5 - 5.5 mmol/L LAB CHEMISTRY METHOD 06/16/2024 11:54 AM [facility] Chloride 103 96 - 110 mmol/L LAB CHEMISTRY METHOD 06/16/2024 11:54 AM [facility] CO2 26 21 - 32 mmol/L LAB CHEMISTRY METHOD 06/16/2024 11:54 AM [facility] Anion Gap 10 3 - 11 LAB CHEMISTRY METHOD 06/16/2024 11:54 AM [facility] Glucose 319(H) 70 - 100 mg/dL LAB CHEMISTRY METHOD 06/16/2024 11:54 AM [facility] BUN 26(H) 5 - 25 mg/dL LAB CHEMISTRY METHOD 06/16/2024 11:54 AM [facility] Creatinine 0.97 0.50 - 1.10 mg/dL LAB CHEMISTRY METHOD 06/16/2024 11:54 AM [facility] eGFR 57(L) >=60 mL/min/1. 73m2 LAB CHEMISTRY METHOD 06/16/2024 11:54 AM [facility] Comment:Calculation based on the??Chronic Kidney Disease Epidemiology Collaboration (CKD-EPI) equation refit??without adjustment for race. BUN/Creatinine Ratio 26.8 LAB CHEMISTRY METHOD 06/16/2024 11:54 AM [facility] Calcium 8.8 8.5 - 10.5 mg/dL LAB CHEMISTRY METHOD 06/16/2024 11:54 AM [facility] Blood Venous blood specimen / Unknown Venipuncture / Unknown 06/16/2024 5:17 AM EDT 06/16/2024 10:33 AM EDT Torrey Kwok MD LAB BLOOD ORDERABLES Final Resul t [facility] [address] [place] [address], * (ABNORMAL) Complete blood count (06/16/2024 5:17 AM EDT) [facility] WBC 6.8 4.8 - 10.8 K/mcL LAB HEMETOLOGY METHOD 06/16/2024 11:13 AM EDT [facility] RBC 3.40(L) 3.80 - 4.80 M/mcL LAB HEMETOLOGY METHOD 06/16/2024 11:13 AM [facility] Hemoglobin 10.9(L) 11.5 - 16.0 g/dL LAB HEMETOLOGY METHOD 06/16/2024 11:13 AM [facility] Hematocrit 34.2(L) 35.0 - 47.0 % LAB HEMETOLOGY METHOD 06/16/2024 11:13 AM [facility] MCV 101.2(H) 79.0 - 98.0 FL LAB HEMETOLOGY METHOD 06/16/2024 11:13 AM [facility] MCH 32.2(H) 27.0 - 32.0 pcg LAB HEMETOLOGY METHOD 06/16/2024 11:13 AM [facility] MCHC 31.9(L) 32.0 - 37.0 g/dL LAB HEMETOLOGY METHOD 06/16/2024 11:13 AM [facility] RDW 18.4(H) 11.0 - 15.0 % LAB HEMETOLOGY METHOD 06/16/2024 11:13 AM [facility] Platelets 326 130 - 400 K/mcL LAB HEMETOLOGY METHOD 06/16/2024 11:13 AM EDT [facility] MPV 10.5 7.0 - 11.0 FL LAB HEMETOLOGY METHOD 06/16/2024 11:13 AM EDT [facility] NRBC 0.0 <1.0 % LAB HEMETOLOGY METHOD 06/16/2024 11:13 AM EDT [facility] NRBC Absolute 0.00 <0.10 K/mcL LAB HEMETOLOGY METHOD 06/16/2024 11:13 AM EDT [facility] Blood Venous blood specimen / Unknown Venipuncture / Unknown 06/16/2024 5:17 AM EDT 06/16/2024 10:36 AM EDT us Torrey Kwok MD LAB BLOOD ORDERABLES Final Resul t [facility] [address] [place] [address], documented in this encounter Visit Diagnoses Diagnosis Type 2 diabetes mellitus with diabetic chronic kidney disease (CMS/HCC) Essential (primary) hypertension Unspecified essential hypertension Heart failure, unspecified (CMS/HCC) Heart failure, unspecified 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
--- OUTSIDE RECORDS SUMMARY | 2024-07-09 11:34 | XMS_ITS | Encounter Summary ---
Author Organization [facility] Address [address] [place] [address] Care Team Providers Care Brick Stacker Name Role Phone Torrey Kwok MD Primary Care Provider [phone] Encounter Details Date Type Department Care Team (Late st Contact Info) Description 05/06/2024 Lab Requisition [facility] Lab [address] [place] [address] Torrey Kwok MD [address] [place] [address] Type 2 diabetes mellitus without complications (CMS/HCC) [...] LAB CHEMISTRY METHOD 05/07/2024 1:13 PM EST [facility] Potassium 4.1 3.5 - 5.5 mmol/L LAB CHEMISTRY METHOD 05/07/2024 1:13 PM [facility] Chloride 96 96 - 110 mmol/L LAB CHEMISTRY METHOD 05/07/2024 1:13 PM [facility] CO2 26 21 - 32 mmol/L LAB CHEMISTRY METHOD 05/07/2024 1:13 PM [facility] Anion Gap 8 3 - 11 LAB CHEMISTRY METHOD 05/07/2024 1:13 PM [facility] Glucose 271(H) 70 - 100 mg/dL LAB CHEMISTRY METHOD 05/07/2024 1:13 PM [facility] BUN 21 5 - 25 mg/dL LAB CHEMISTRY METHOD 05/07/2024 1:13 PM [facility] Creatinine 0.98 0.50 - 1.10 mg/dL LAB CHEMISTRY METHOD 05/07/2024 1:13 PM [facility] eGFR 56(L) >=60 mL/min/1. 73m2 LAB CHEMISTRY METHOD 05/07/2024 1:13 PM [facility] Comment:Calculation based on the??Chronic Kidney Disease Epidemiology Collaboration (CKD-EPI) equation refit??without adjustment for race. BUN/Creatinine Ratio 21.4 LAB CHEMISTRY METHOD 05/07/2024 1:13 PM [facility] Calcium 9.0 8.5 - 10.5 mg/dL LAB CHEMISTRY METHOD 05/07/2024 1:13 PM [facility] Blood Venous blood specimen / Unknown Venipuncture / Unknown 05/07/2024 8:42 AM EST 05/07/2024 11:51 AM EST us Torrey Kwok MD LAB BLOOD ORDERABLES Final Resul t [facility] [address] [place] [address], * (ABNORMAL) Complete blood count (05/07/2024 8:42 AM EST) [facility] WBC 9.1 4.8 - 10.8 K/mcL LAB HEMETOLOGY METHOD 05/07/2024 12:40 PM [facility] RBC 3.90 3.80 - 4.80 M/mcL LAB HEMETOLOGY METHOD 05/07/2024 12:40 PM [facility] Hemoglobin 12.4 11.5 - 16.0 g/dL LAB HEMETOLOGY METHOD 05/07/2024 12:40 PM [facility] Hematocrit 38.7 35.0 - 47.0 % LAB HEMETOLOGY METHOD 05/07/2024 12:40 PM [facility] MCV 99.2(H) 79.0 - 98.0 FL LAB HEMETOLOGY METHOD 05/07/2024 12:40 PM [facility] MCH 31.8 27.0 - 32.0 pcg LAB HEMETOLOGY METHOD 05/07/2024 12:40 PM [facility] MCHC 32.0 32.0 - 37.0 g/dL LAB HEMETOLOGY METHOD 05/07/2024 12:40 PM [facility] RDW 19.9(H) 11.0 - 15.0 % LAB HEMETOLOGY METHOD 05/07/2024 12:40 PM [facility] Platelets 384 130 - 400 K/mcL LAB HEMETOLOGY METHOD 05/07/2024 12:40 PM [facility] MPV 10.7 7.0 - 11.0 FL LAB HEMETOLOGY METHOD 05/07/2024 12:40 PM [facility] NRBC 0.0 <1.0 % LAB HEMETOLOGY METHOD 05/07/2024 12:40 PM [facility] NRBC Absolute 0.00 <0.10 K/mcL LAB HEMETOLOGY METHOD 05/07/2024 12:40 PM [facility] Blood Venous blood specimen / Unknown Venipuncture / Unknown 05/07/2024 8:42 AM EST 05/07/2024 11:51 AM EST Torrey Kwok MD LAB BLOOD ORDERABLES Final Resul t Performing Organization Address City/State/[facility] Co de Phone Number [facility] LAB [address] [place] [address], documented in this encounter Visit Diagnoses Diagnosis Type 2 diabetes mellitus without complications documented in this encounter Care Teams Brick Stacker Relationship Specialty Start Date End Date Torrey Kwok MD [address] [place] [address] [address] [place] [address] PCP - General Geriatric Medicine 04/25/24 documented as of this encounter
--- OUTSIDE RECORDS SUMMARY | 2024-07-09 11:34 | XMS_ITS | Encounter Summary ---
Author Organization [facility] Address [address] [place] [address] Care Team Providers Care Cruise Coordinator Name Role Phone Torrey Kwok MD Primary Care Provider [phone] Encounter Details Date Type Department Care Team (Late st Contact Info) Description 06/02/2024 Lab Requisition [facility] - Main Lab 299 [facility] [place] [address] Torrey Kwok MD [address] [place], [place] [phone] Chronic diastolic (congestive) heart failure (CMS/HCC); Chronic [...] mmol/L LAB CHEMISTRY METHOD 06/02/2024 3:36 PM [facility] Potassium 3.5 3.5 - 5.5 mmol/L LAB CHEMISTRY METHOD 06/02/2024 3:36 PM [facility] Chloride 93(L) 96 - 110 mmol/L LAB CHEMISTRY METHOD 06/02/2024 3:36 PM [facility] CO2 29 21 - 32 mmol/L LAB CHEMISTRY METHOD 06/02/2024 3:36 PM [facility] Anion Gap 8 3 - 11 LAB CHEMISTRY METHOD 06/02/2024 3:36 PM [facility] Glucose 468(HH) 70 - 100 mg/dL LAB CHEMISTRY METHOD 06/02/2024 3:36 PM [facility] BUN 43(H) 5 - 25 mg/dL LAB CHEMISTRY METHOD 06/02/2024 3:36 PM [facility] Creatinine 1.43(H) 0.50 - 1.10 mg/dL LAB CHEMISTRY METHOD 06/02/2024 3:36 PM [facility] eGFR 36(L) >=60 mL/min/1. 73m2 LAB CHEMISTRY METHOD 06/02/2024 3:36 PM [facility] Comment:Calculation based on the??Chronic Kidney Disease Epidemiology Collaboration (CKD-EPI) equation refit??without adjustment for race. BUN/Creatinine Ratio 30.1 LAB CHEMISTRY METHOD 06/02/2024 3:36 PM [facility] Calcium 8.7 8.5 - 10.5 mg/dL LAB CHEMISTRY METHOD 06/02/2024 3:36 PM [facility] Blood Venous blood specimen / Unknown Venipuncture / Unknown 06/02/2024 12:17 PM EST 06/02/2024 2:05 PM EST us Torrey Kwok MD LAB BLOOD ORDERABLES Final Resul t [facility] [address] [place] [address], [place] [phone] * (ABNORMAL) Complete blood count (06/02/2024 12:17 PM EST) [facility] WBC 9.0 4.8 - 10.8 K/mcL LAB HEMETOLOGY METHOD 06/02/2024 2:27 PM [facility] RBC 3.60(L) 3.80 - 4.80 M/mcL LAB HEMETOLOGY METHOD 06/02/2024 2:27 PM [facility] Hemoglobin 11.5 11.5 - 16.0 g/dL LAB HEMETOLOGY METHOD 06/02/2024 2:27 PM [facility] Hematocrit 35.4 35.0 - 47.0 % LAB HEMETOLOGY METHOD 06/02/2024 2:27 PM [facility] MCV 97.8 79.0 - 98.0 FL LAB HEMETOLOGY METHOD 06/02/2024 2:27 PM [facility] MCH 31.8 27.0 - 32.0 pcg LAB HEMETOLOGY METHOD 06/02/2024 2:27 PM [facility] MCHC 32.5 32.0 - 37.0 g/dL LAB HEMETOLOGY METHOD 06/02/2024 2:27 PM [facility] RDW 17.8(H) 11.0 - 15.0 % LAB HEMETOLOGY METHOD 06/02/2024 2:27 PM [facility] Platelets 342 130 - 400 K/mcL LAB HEMETOLOGY METHOD 06/02/2024 2:27 PM [facility] MPV 10.4 7.0 - 11.0 FL LAB HEMETOLOGY METHOD 06/02/2024 2:27 PM [facility] NRBC 0.0 <1.0 % LAB HEMETOLOGY METHOD 06/02/2024 2:27 PM EST [facility] NRBC Absolute 0.00 <0.10 K/mcL LAB HEMETOLOGY METHOD 06/02/2024 2:27 PM EST [facility] Blood Venous blood specimen / Unknown Venipuncture / Unknown 06/02/2024 12:17 PM EST 06/02/2024 2:05 PM EST us Torrey Kwok MD LAB BLOOD ORDERABLES Final Resul t [facility] [address] [place] [address], documented in this encounter Visit Diagnoses Diagnosis Chronic diastolic (congestive) heart failure Chronic kidney disease, stage 3 unspecified (CMS/HCC) documented in this encounter Care Teams Cruise Coordinator Relationship Specialty Start Date End Date Torrey Kwok MD [address] [place] [address] [address] [place] [address] PCP - General Geriatric Medicine 04/25/24 documented as of this encounter
--- OUTSIDE RECORDS SUMMARY | 2024-07-09 11:34 | XMS_ITS | Encounter Summary ---
Author Organization [facility] Address [address] [place] [address] Care Team Providers Care Reservations And Ticketing Agent Name Role Phone Torrey Kwok MD Primary Care Provider [phone] Encounter Details Date Type Department Care Team (Late st Contact Info) Description 04/29/2024 Lab Requisition [facility] - Main Lab 299 [facility] [employer] [place] [address] Torrey Kwok MD [address] [place] [address] Dysuria Social History Tobacco Use Types Packs/Day [...] MICROBIOLOGY - GENERAL ORDER GENET Final Result [facility] [address] [place] [address], * Frost urine culture tube (04/28/2024 12:15 PM EST) Extra Tube Hold for add-ons. 04/29/2024 11:01 AM EST [facility] Comment:Auto resulted. Urine Urine specimen obtained by clean catch procedure / Unknown 04/28/2024 12:15 PM EST 04/29/2024 9:53 AM EST us Torrey Kwok MD LAB URINE ORDERABLES Final Resul t [facility] [address] [place] [address], * (ABNORMAL) Urinalysis with reflex microscopic and culture (04/28/2024 12:15 PM EST) Specific [place] Urine 1.021 1.003 - 1.030 LAB URINALYSIS [...] MD LAB URINE ORDERABLES Final Resul t [facility] [address] [place] [address], documented in this encounter Visit Diagnoses Diagnosis Dysuria documented in this encounter Care Teams Reservations And Ticketing Agent Relationship Specialty Start Date End Date Torrey Kwok MD [address] [place] [address] [address] [place] [address] PCP - General Geriatric Medicine 04/25/24 documented as of this encounter
--- OUTSIDE RECORDS SUMMARY | 2024-07-09 11:34 | XMS_ITS | Encounter Summary ---
Author Organization [facility] Address [address] [place] [phone] Care Team Providers Care Supervisor Warping Department Name Role Phone Torrey Kwok MD Primary Care Provider [phone] Encounter Details Date Type Department Care Team (Late st Contact Info) Description 05/16/2024 Lab Requisition [facility] - Main Lab 299 [facility] [employer] [place] [address] Torrey Kwok MD [address] [place], [place] [phone] Heart failure, unspecified (CMS/HCC); Essential (primary) hypertension; [...] mmol/L LAB CHEMISTRY METHOD 05/19/2024 2:03 PM [facility] Potassium 3.7 3.5 - 5.5 mmol/L LAB CHEMISTRY METHOD 05/19/2024 2:03 PM [facility] Chloride 102 96 - 110 mmol/L LAB CHEMISTRY METHOD 05/19/2024 2:03 PM [facility] CO2 25 21 - 32 mmol/L LAB CHEMISTRY METHOD 05/19/2024 2:03 PM [facility] Anion Gap 10 3 - 11 LAB CHEMISTRY METHOD 05/19/2024 2:03 PM [facility] Glucose 92 70 - 100 mg/dL LAB CHEMISTRY METHOD 05/19/2024 2:03 PM [facility] BUN 23 5 - 25 mg/dL LAB CHEMISTRY METHOD 05/19/2024 2:03 PM [facility] Creatinine 0.97 0.50 - 1.10 mg/dL LAB CHEMISTRY METHOD 05/19/2024 2:03 PM [facility] eGFR 57(L) >=60 mL/min/1. 73m2 LAB CHEMISTRY METHOD 05/19/2024 2:03 PM [facility] Comment:Calculation based on the??Chronic Kidney Disease Epidemiology Collaboration (CKD-EPI) equation refit??without adjustment for race. BUN/Creatinine Ratio 23.7 LAB CHEMISTRY METHOD 05/19/2024 2:03 PM [facility] Calcium 8.8 8.5 - 10.5 mg/dL LAB CHEMISTRY METHOD 05/19/2024 2:03 PM [facility] Blood Venous blood specimen / Unknown Venipuncture / Unknown 05/19/2024 7:33 AM EST 05/19/2024 12:17 PM EST us Torrey Kwok MD LAB BLOOD ORDERABLES Final Resul t [facility] [address] [place] [address], * (ABNORMAL) Complete blood count (05/19/2024 7:33 AM EST) [facility] WBC 5.4 4.8 - 10.8 K/mcL LAB HEMETOLOGY METHOD 05/19/2024 1:26 PM [facility] RBC 3.50(L) 3.80 - 4.80 M/mcL LAB HEMETOLOGY METHOD 05/19/2024 1:26 PM [facility] Hemoglobin 11.1(L) 11.5 - 16.0 g/dL LAB HEMETOLOGY METHOD 05/19/2024 1:26 PM [facility] Hematocrit 35.7 35.0 - 47.0 % LAB HEMETOLOGY METHOD 05/19/2024 1:26 PM [facility] MCV 103.5(H) 79.0 - 98.0 FL LAB HEMETOLOGY METHOD 05/19/2024 1:26 PM [facility] MCH 32.2(H) 27.0 - 32.0 pcg LAB HEMETOLOGY METHOD 05/19/2024 1:26 PM [facility] MCHC 31.1(L) 32.0 - 37.0 g/dL LAB HEMETOLOGY METHOD 05/19/2024 1:26 PM [facility] RDW 20.0(H) 11.0 - 15.0 % LAB HEMETOLOGY METHOD 05/19/2024 1:26 PM [facility] Platelets 344 130 - 400 K/mcL LAB HEMETOLOGY METHOD 05/19/2024 1:26 PM [facility] MPV 10.8 7.0 - 11.0 FL LAB HEMETOLOGY METHOD 05/19/2024 1:26 PM [facility] NRBC 0.0 <1.0 % LAB HEMETOLOGY METHOD 05/19/2024 1:26 PM EST [facility] NRBC Absolute 0.00 <0.10 K/mcL LAB HEMETOLOGY METHOD 05/19/2024 1:26 PM EST [facility] Blood Venous blood specimen / Unknown Venipuncture / Unknown 05/19/2024 7:33 AM EST 05/19/2024 12:17 PM EST Torrey Kwok MD LAB BLOOD ORDERABLES Final Resul t [facility] [address] [place] [address], documented in this encounter Visit Diagnoses Diagnosis Heart failure, unspecified (CMS/HCC) Heart failure, unspecified Essential (primary) hypertension Unspecified essential hypertension Type 2 diabetes mellitus with diabetic chronic kidney disease (CMS/HCC) documented in this encounter Care Teams Supervisor Warping Department Relationship Specialty Start Date End Date Torrey Kwok MD [address] [place] [address] [address] [place] [address] PCP - General Geriatric Medicine 04/25/24 documented as of this encounter
--- OUTSIDE RECORDS SUMMARY | 2024-07-09 11:34 | XMS_ITS | Encounter Summary ---
Author Organization [facility] Address [address] [place] [phone] Care Team Providers Care Bi Solutions Architect Name Role Phone Torrey Kwok MD Primary Care Provider Encounter Details Date Type Department Care Team (Late st Contact Info) Description 06/07/2024 Lab Requisition [facility] - Main Lab 299 [facility] [employer] [address] Torrey Kwok MD [address] [place], [place] [phone] Heart failure, unspecified (CMS/HCC); Type 2 diabetes [...] D 25 hydroxy (06/07/2024 6:36 AM EST) [facility] Vit D, 25-Hydroxy 41.4 30.0 - 80.0 ng/mL LAB CHEMISTRY METHOD 06/07/2024 1:29 PM EST [facility] Blood Venous blood specimen / Unknown Venipuncture / Unknown 06/07/2024 6:36 AM EST 06/07/2024 9:58 AM EST us Torrey Kwok MD LAB BLOOD ORDERABLES Final Resul t [facility] [address] [place] [address], [place] [phone] * Folate (06/07/2024 6:36 AM EST) [facility] Folate 9.8 2.8 - 17.0 ng/ml LAB CHEMISTRY METHOD 06/07/2024 12:13 PM EST [facility] Blood Venous blood specimen / Unknown Venipuncture / Unknown 06/07/2024 6:36 AM EST 06/07/2024 9:58 AM EST us Torrey Kwok MD LAB BLOOD ORDERABLES Final Resul t [facility] [address] [place] [address], [place] [phone] * (ABNORMAL) Vitamin B12 (06/07/2024 6:36 AM EST) Vitamin B-12 1,072(H) 250 - 900 pcg/mL LAB CHEMISTRY METHOD 06/07/2024 12:13 PM EST [facility] Blood Venous blood specimen / Unknown Venipuncture / Unknown 06/07/2024 6:36 AM EST 06/07/2024 9:58 AM EST Torrey Kwok MD LAB BLOOD ORDERABLES Final Resul t [facility] [address] [place] [address], documented in this encounter Visit Diagnoses Diagnosis Heart failure, unspecified (CMS/HCC) Heart failure, unspecified Type 2 diabetes mellitus with diabetic chronic kidney disease (CMS/HCC) Chronic kidney disease, stage 3 unspecified (CMS/HCC) Vitamin D deficiency, unspecified Essential (primary) hypertension Unspecified essential hypertension documented in this encounter Care Teams Bi Solutions Architect Relationship Specialty Start Date End Date Torrey Kwok MD [address] [place] [address] [address] [place] [address] PCP - General Geriatric Medicine 04/25/24 documented as of this encounter
--- OUTSIDE RECORDS SUMMARY | 2024-07-09 11:34 | XMS_ITS | Encounter Summary ---
Author Organization [facility] Address [address] [place] [phone] Care Team Providers Care Clinical Documentation Manager Name Role Phone Torrey Kwok MD Primary Care Provider Encounter Details Date Type Department Care Team (Late st Contact Info) Description 06/07/2024 Lab Requisition [facility] - Main Lab 299 [facility] [place] [address] Torrey Kwok MD [address] [place], [place] [id number] Type 2 diabetes mellitus with diabetic chronic [...] mmol/L LAB CHEMISTRY METHOD 06/09/2024 1:51 PM [facility] Potassium 3.8 3.5 - 5.5 mmol/L LAB CHEMISTRY METHOD 06/09/2024 1:51 PM [facility] Chloride 99 96 - 110 mmol/L LAB CHEMISTRY METHOD 06/09/2024 1:51 PM [facility] CO2 28 21 - 32 mmol/L LAB CHEMISTRY METHOD 06/09/2024 1:51 PM [facility] Anion Gap 10 3 - 11 LAB CHEMISTRY METHOD 06/09/2024 1:51 PM [facility] Glucose 135(H) 70 - 100 mg/dL LAB CHEMISTRY METHOD 06/09/2024 1:51 PM [facility] BUN 41(H) 5 - 25 mg/dL LAB CHEMISTRY METHOD 06/09/2024 1:51 PM [facility] Creatinine 0.99 0.50 - 1.10 mg/dL LAB CHEMISTRY METHOD 06/09/2024 1:51 PM [facility] eGFR 55(L) >=60 mL/min/1. 73m2 LAB CHEMISTRY METHOD 06/09/2024 1:51 PM [facility] Comment:Calculation based on the??Chronic Kidney Disease Epidemiology Collaboration (CKD-EPI) equation refit??without adjustment for race. BUN/Creatinine Ratio 41.4 LAB CHEMISTRY METHOD 06/09/2024 1:51 PM [facility] Calcium 9.2 8.5 - 10.5 mg/dL LAB CHEMISTRY METHOD 06/09/2024 1:51 PM [facility] Blood Venous blood specimen / Unknown Venipuncture / Unknown 06/09/2024 6:45 AM EST 06/09/2024 11:22 AM EST us Torrey Kwok MD LAB BLOOD ORDERABLES Final Resul t [facility] [address] [place] [address], [place] [phone] * (ABNORMAL) Complete blood count (06/09/2024 6:45 AM EST) WBC 9.1 4.8 - 10.8 K/mcL LAB HEMETOLOGY METHOD 06/09/2024 1:30 PM [facility] RBC 3.50(L) 3.80 - 4.80 M/mcL LAB HEMETOLOGY METHOD 06/09/2024 1:30 PM [facility] Hemoglobin 11.2(L) 11.5 - 16.0 g/dL LAB HEMETOLOGY METHOD 06/09/2024 1:30 PM [facility] Hematocrit 35.6 35.0 - 47.0 % LAB HEMETOLOGY METHOD 06/09/2024 1:30 PM [facility] MCV 101.1(H) 79.0 - 98.0 FL LAB HEMETOLOGY METHOD 06/09/2024 1:30 PM [facility] MCH 31.8 27.0 - 32.0 pcg LAB HEMETOLOGY METHOD 06/09/2024 1:30 PM [facility] MCHC 31.5(L) 32.0 - 37.0 g/dL LAB HEMETOLOGY METHOD 06/09/2024 1:30 PM [facility] RDW 18.6(H) 11.0 - 15.0 % LAB HEMETOLOGY METHOD 06/09/2024 1:30 PM [facility] Platelets 346 130 - 400 K/mcL LAB HEMETOLOGY METHOD 06/09/2024 1:30 PM EST [facility] MPV 10.5 7.0 - 11.0 FL LAB HEMETOLOGY METHOD 06/09/2024 1:30 PM EST [facility] NRBC 0.0 <1.0 % LAB HEMETOLOGY METHOD 06/09/2024 1:30 PM EST [facility] NRBC Absolute 0.00 <0.10 K/mcL LAB HEMETOLOGY METHOD 06/09/2024 1:30 PM EST [facility] Blood Venous blood specimen / Unknown Venipuncture / Unknown 06/09/2024 6:45 AM EST 06/09/2024 11:22 AM EST Torrey Kwok MD LAB BLOOD ORDERABLES Final Resul t [facility] [address] [place] [address], documented in this encounter Visit Diagnoses Diagnosis Type 2 diabetes mellitus with diabetic chronic kidney disease (CMS/HCC) Essential (primary) hypertension Unspecified essential hypertension Heart failure, unspecified (CMS/HCC) Heart failure, unspecified 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
--- OUTSIDE RECORDS SUMMARY | 2024-07-09 11:34 | XMS_ITS | Encounter Summary ---
Author Organization [facility] Address [address] [place] [address] Phone Care Team Providers Care Quilting Supervisor Name Role Phone Monique White MD Primary Care Provider [phone] Encounter Details Date Type Department Care Team (Late st Contact Info) Description 06/07/2021 Telephone [facility] [address] [place] [address] Sohail Penaloza MD Social History [...] with you. Please call her back at [phone] Thank you documented in this encounter Plan of Treatment Not on file documented as of this encounter Visit Diagnoses Not on filedocumented in this encounter Care Teams Quilting Supervisor Relationship Specialty Start Date End Date Monique White MD [facility] [address] [place] PCP - General Internal Medicine 03/11/21 documented as of this encounter
--- OUTSIDE RECORDS SUMMARY | 2024-07-09 11:34 | XMS_ITS | Encounter Summary ---
Author Organization [facility] Address [address] [place] [address] Care Team Providers Care Switchboard Operator Receptionist Name Role Phone Torrey Kwok MD Primary Care Provider [phone] Encounter Details Date Type Department Care Team (Late st Contact Info) Description 05/05/2024 Lab Requisition [facility] - Main Lab 299 [facility] [place] [address] Torrey Kwok MD [address] [place] [address] Chronic kidney disease, stage 3 unspecified (CMS/HCC); [...] LAB CHEMISTRY METHOD 05/05/2024 2:05 PM EST [facility] Potassium 5.0 3.5 - 5.5 mmol/L LAB CHEMISTRY METHOD 05/05/2024 2:05 PM [facility] Comment:Hemolysis present Chloride 99 96 - 110 mmol/L LAB CHEMISTRY METHOD 05/05/2024 2:05 PM [facility] CO2 26 21 - 32 mmol/L LAB CHEMISTRY METHOD 05/05/2024 2:05 PM [facility] Anion Gap 9 3 - 11 LAB CHEMISTRY METHOD 05/05/2024 2:05 PM [facility] Glucose 141(H) 70 - 100 mg/dL LAB CHEMISTRY METHOD 05/05/2024 2:05 PM [facility] BUN 23 5 - 25 mg/dL LAB CHEMISTRY METHOD 05/05/2024 2:05 PM [facility] Creatinine 1.08 0.50 - 1.10 mg/dL LAB CHEMISTRY METHOD 05/05/2024 2:05 PM [facility] eGFR 50(L) >=60 mL/min/1. 73m2 LAB CHEMISTRY METHOD 05/05/2024 2:05 PM [facility] Comment:Calculation based on the??Chronic Kidney Disease Epidemiology Collaboration (CKD-EPI) equation refit??without adjustment for race. BUN/Creatinine Ratio 21.3 LAB CHEMISTRY METHOD 05/05/2024 2:05 PM [facility] Calcium 8.3(L) 8.5 - 10.5 mg/dL LAB CHEMISTRY METHOD 05/05/2024 2:05 PM [facility] Blood Venous blood specimen / Unknown Venipuncture / Unknown 05/05/2024 5:43 AM EST 05/05/2024 11:40 AM EST us Torrey Kwok MD LAB BLOOD ORDERABLES Final Resul t [facility] [address] [place] [address], documented in this encounter Visit Diagnoses Diagnosis Chronic kidney disease, stage 3 unspecified (CMS/HCC) Type 2 diabetes mellitus with diabetic chronic kidney disease (CMS/[facility]) documented in this encounter Care Teams Switchboard Operator Receptionist Relationship Specialty Start Date End Date Torrey Kwok MD [address] [place] [address] [address] [place] [address] PCP - General Geriatric Medicine 04/25/24 documented as of this encounter
--- OUTSIDE RECORDS SUMMARY | 2024-07-09 11:34 | XMS_ITS | Encounter Summary ---
Author Organization [facility] Address [address] [place] [phone] Care Team Providers Care Asphalt Machine Operator Name Role Phone Torrey Kwok MD Primary Care Provider [phone] Encounter Details Date Type Department Care Team (Late st Contact Info) Description 04/30/2024 Lab Requisition [facility] - Main Lab 299 [facility] [place] [address] Torrey Kwok MD [address] [place] [address] Type 2 diabetes mellitus without complications (CMS/HCC) [...] AM EST) WBC 6.6 4.8 - 10.8 K/[facility] LAB HEMETOLOGY METHOD 04/30/2024 2:51 PM EST [facility] RBC 3.40(L) 3.80 - 4.80 M/[facility] LAB HEMETOLOGY METHOD 04/30/2024 2:51 PM EST [facility] Hemoglobin 10.7(L) 11.5 - 16.0 g/dL LAB HEMETOLOGY METHOD 04/30/2024 2:51 PM EST [facility] Hematocrit 34.7(L) 35.0 - 47.0 % LAB HEMETOLOGY METHOD 04/30/2024 2:51 PM [facility] MCV 101.5(H) 79.0 - 98.0 FL LAB HEMETOLOGY METHOD 04/30/2024 2:51 PM EST [facility] MCH 31.3 27.0 - [...] 04/30/2024 2:51 PM [facility] MPV 10.8 7.0 - 11.0 FL LAB HEMETOLOGY METHOD 04/30/2024 2:51 PM [facility] NRBC 0.5 <1.0 % [...] Resul t [facility] [address] [place] [address], documented in this encounter Visit Diagnoses Diagnosis Type 2 diabetes mellitus without complications documented in this encounter Care Teams Asphalt Machine Operator Relationship Specialty Start Date End Date Torrey Kwok MD [address] [place] [address] [address] [place] [address] PCP - General Geriatric Medicine 04/25/24 documented as of this encounter
--- OUTSIDE RECORDS SUMMARY | 2024-07-09 11:34 | XMS_ITS | Encounter Summary ---
Author Organization [facility] Address [address] [place] [phone] Care Team Providers Care Ball Point Splitter Name Role Phone Torrey Kwok MD Primary Care Provider [phone] Encounter Details Date Type Department Care Team (Late st Contact Info) Description 05/31/[address] [facility] - Main Lab 299 [facility] [place] [address] Torrey Kwok MD [address] [place], [place] [id number] Type 2 diabetes mellitus with diabetic chronic [...] LAB CHEMISTRY METHOD 06/02/2024 1:18 PM [facility] Potassium 3.7 3.5 - 5.5 mmol/L LAB CHEMISTRY METHOD 06/02/2024 1:18 PM [facility] Chloride 94(L) 96 - 110 mmol/L LAB CHEMISTRY METHOD 06/02/2024 1:18 PM [facility] CO2 27 21 - 32 mmol/L LAB CHEMISTRY METHOD 06/02/2024 1:18 PM [facility] Anion Gap 12(H) 3 - 11 LAB CHEMISTRY METHOD 06/02/2024 1:18 PM [facility] Glucose 464(HH) 70 - 100 mg/dL LAB CHEMISTRY METHOD 06/02/2024 1:18 PM [facility] BUN 34(H) 5 - 25 mg/dL LAB CHEMISTRY METHOD 06/02/2024 1:18 PM [facility] Creatinine 1.18(H) 0.50 - 1.10 mg/dL LAB CHEMISTRY METHOD 06/02/2024 1:18 PM [facility] eGFR 45(L) >=60 mL/min/1. 73m2 LAB CHEMISTRY METHOD 06/02/2024 1:18 PM [facility] Comment:Calculation based on the??Chronic Kidney Disease Epidemiology Collaboration (CKD-EPI) equation refit??without adjustment for race. BUN/Creatinine Ratio 28.8 LAB CHEMISTRY METHOD 06/02/2024 1:18 PM [facility] Calcium 9.0 8.5 - 10.5 mg/dL LAB CHEMISTRY METHOD 06/02/2024 1:18 PM [facility] Blood Venous blood specimen / Unknown Venipuncture / Unknown 06/02/2024 5:33 AM EST 06/02/2024 10:52 AM EST us Torrey Kwok MD LAB BLOOD ORDERABLES Final Resul t [facility] [address] [place] [address], [place] [phone] * (ABNORMAL) Complete blood count (06/02/2024 5:33 AM EST) WBC 9.9 4.8 - 10.8 K/mcL LAB HEMETOLOGY METHOD 06/02/2024 2:00 PM [facility] RBC 3.70(L) 3.80 - 4.80 M/mcL LAB HEMETOLOGY METHOD 06/02/2024 2:00 PM [facility] Hemoglobin 11.5 11.5 - 16.0 g/dL LAB HEMETOLOGY METHOD 06/02/2024 2:00 PM [facility] Hematocrit 37.8 35.0 - 47.0 % LAB HEMETOLOGY METHOD 06/02/2024 2:00 PM [facility] MCV 103.6(H) 79.0 - 98.0 FL LAB HEMETOLOGY METHOD 06/02/2024 2:00 PM [facility] MCH 31.5 27.0 - 32.0 pcg LAB HEMETOLOGY METHOD 06/02/2024 2:00 PM [facility] MCHC 30.4(L) 32.0 - 37.0 g/dL LAB HEMETOLOGY METHOD 06/02/2024 2:00 PM [facility] RDW 18.5(H) 11.0 - 15.0 % LAB HEMETOLOGY METHOD 06/02/2024 2:00 PM [facility] Platelets 365 130 - 400 K/mcL LAB HEMETOLOGY METHOD 06/02/2024 2:00 PM [facility] MPV 10.4 7.0 - 11.0 FL LAB HEMETOLOGY METHOD 06/02/2024 2:00 PM EST [facility] NRBC 0.0 <1.0 % LAB HEMETOLOGY METHOD 06/02/2024 2:00 PM EST [facility] NRBC Absolute 0.00 <0.10 K/mcL LAB HEMETOLOGY METHOD 06/02/2024 2:00 PM EST [facility] Blood Venous blood specimen / Unknown Venipuncture / Unknown 06/02/2024 5:33 AM EST 06/02/2024 10:52 AM EST Torrey Kwok MD LAB BLOOD ORDERABLES Final Resul t [facility] [address] [place] [address], documented in this encounter Visit Diagnoses Diagnosis Type 2 diabetes mellitus with diabetic chronic kidney disease (CMS/HCC) Essential (primary) hypertension Unspecified essential hypertension Heart failure, unspecified (CMS/HCC) Heart failure, unspecified 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
--- OUTSIDE RECORDS SUMMARY | 2024-07-09 11:34 | XMS_ITS | Encounter Summary ---
Author Organization [facility] Address [address] [place] [address] Care Team Providers Care Oncology Physician Assistant Name Role Phone Torrey Kwok MD Primary Care Provider [phone] Encounter Details Date Type Department Care Team (Late st Contact Info) Description 05/01/2024 Lab Requisition [facility] - Main Lab 299 [facility] [address] Torrey Kwok MD [address] [place] [address] Type 2 diabetes mellitus without complications (CMS/HCC) [...] LAB CHEMISTRY METHOD 05/01/2024 9:17 AM EST [facility] Potassium 4.0 3.5 - 5.5 mmol/L LAB CHEMISTRY METHOD 05/01/2024 9:17 AM EST [facility] Chloride 97 96 - 110 mmol/L LAB CHEMISTRY METHOD 05/01/2024 9:17 AM [facility] CO2 29 21 - 32 mmol/L LAB CHEMISTRY METHOD 05/01/2024 9:17 AM [facility] Anion Gap 8 3 - 11 LAB CHEMISTRY METHOD 05/01/2024 9:17 AM [facility] Glucose 262(H) 70 - 100 mg/dL LAB CHEMISTRY METHOD 05/01/2024 9:17 AM [facility] BUN 45(H) 5 - 25 mg/dL LAB CHEMISTRY METHOD 05/01/2024 9:17 AM [facility] Creatinine 1.66(H) 0.50 - 1.10 mg/dL LAB CHEMISTRY METHOD 05/01/2024 9:17 AM [facility] eGFR 30(L) >=60 mL/min/1. 73m2 LAB CHEMISTRY METHOD 05/01/2024 9:17 AM [facility] Comment:Calculation based on the??Chronic Kidney Disease Epidemiology Collaboration (CKD-EPI) equation refit??without adjustment for race. BUN/Creatinine Ratio 27.1 LAB CHEMISTRY METHOD 05/01/2024 9:17 AM [facility] Calcium 7.6(L) 8.5 - 10.5 mg/dL LAB CHEMISTRY METHOD 05/01/2024 9:17 AM [facility] Blood Venous blood specimen / Unknown Venipuncture / Unknown 05/01/2024 7:06 AM EST 05/01/2024 8:25 AM EST us Torrey Kwok MD LAB BLOOD ORDERABLES Final Resul t [facility] [address] [place] [address], documented in this encounter Visit Diagnoses Diagnosis Type 2 diabetes mellitus without complications documented in this encounter Care Teams Oncology Physician Assistant Relationship Specialty Start Date End Date Torrey Kwok MD [address] [place] [address] [address] [place] [address] PCP - General Geriatric Medicine 04/25/24 documented as of this encounter
--- OUTSIDE RECORDS SUMMARY | 2024-07-09 11:34 | XMS_ITS | Encounter Summary ---
Author Organization [facility] Address [address] [place] [phone] Care Team Providers Care Ager Tender Name Role Phone Torrey Kwok MD Primary Care Provider [phone] Encounter Details Date Type Department Care Team (Late st Contact Info) Description 05/30/2024 Lab Requisition [facility] - Main Lab 299 [facility] [place] [address] Torrey Kwok MD [address] [place] [address] Essential (primary) hypertension; Type 2 diabetes mellitus [...] LAB CHEMISTRY METHOD 05/30/2024 5:[address] [facility] Potassium 3.6 3.5 - 5.5 mmol/L LAB CHEMISTRY METHOD 05/30/2024 5:00 PM [facility] Chloride 104 96 - 110 mmol/L LAB CHEMISTRY METHOD 05/30/2024 5:00 PM [facility] CO2 26 21 - 32 mmol/L LAB CHEMISTRY METHOD 05/30/2024 5:00 PM [facility] Anion Gap 9 3 - 11 LAB CHEMISTRY METHOD 05/30/2024 5:00 PM [facility] Glucose 81 70 - 100 mg/dL LAB CHEMISTRY METHOD 05/30/2024 5:00 PM [facility] BUN 31(H) 5 - 25 mg/dL LAB CHEMISTRY METHOD 05/30/2024 5:00 PM [facility] Creatinine 1.11(H) 0.50 - 1.10 mg/dL LAB CHEMISTRY METHOD 05/30/2024 5:00 PM [facility] eGFR 48(L) >=60 mL/min/1. 73m2 LAB CHEMISTRY METHOD 05/30/2024 5:00 PM [facility] Comment:Calculation based on the??Chronic Kidney Disease Epidemiology Collaboration (CKD-EPI) equation refit??without adjustment for race. BUN/Creatinine Ratio 27.9 LAB CHEMISTRY METHOD 05/30/2024 5:00 PM [facility] Calcium 8.8 8.5 - 10.5 mg/dL LAB CHEMISTRY METHOD 05/30/2024 5:00 PM [facility] Blood Venous blood specimen / Unknown Venipuncture / Unknown 05/30/2024 3:45 PM EST 05/30/2024 4:21 PM EST us Torrey Kwok MD LAB BLOOD ORDERABLES Final Resul t [facility] [address] [place] [address], * (ABNORMAL) Complete blood count (05/30/2024 3:45 PM EST) [facility] WBC 7.1 4.8 - 10.8 K/mcL LAB HEMETOLOGY METHOD 05/30/2024 4:35 PM [facility] RBC 3.20(L) 3.80 - 4.80 M/mcL LAB HEMETOLOGY METHOD 05/30/2024 4:35 PM [facility] Hemoglobin 10.3(L) 11.5 - 16.0 g/dL LAB HEMETOLOGY METHOD 05/30/2024 4:35 PM [facility] Hematocrit 32.0(L) 35.0 - 47.0 % LAB HEMETOLOGY METHOD 05/30/2024 4:35 PM [facility] MCV 100.0(H) 79.0 - 98.0 FL LAB HEMETOLOGY METHOD 05/30/2024 4:35 PM [facility] MCH 32.2(H) 27.0 - 32.0 pcg LAB HEMETOLOGY METHOD 05/30/2024 4:35 PM [facility] MCHC 32.2 32.0 - 37.0 g/dL LAB HEMETOLOGY METHOD 05/30/2024 4:35 PM [facility] RDW 18.3(H) 11.0 - 15.0 % LAB HEMETOLOGY METHOD 05/30/2024 4:35 PM [facility] Platelets 319 130 - 400 K/mcL LAB HEMETOLOGY METHOD 05/30/2024 4:35 PM [facility] MPV 10.1 7.0 - 11.0 FL LAB HEMETOLOGY METHOD 05/30/2024 4:35 PM [facility] NRBC 0.0 <1.0 % LAB HEMETOLOGY METHOD 05/30/2024 4:35 PM [facility] NRBC Absolute 0.00 <0.10 K/mcL LAB HEMETOLOGY METHOD 05/30/2024 4:35 PM EST [facility] Blood Venous blood specimen / Unknown Venipuncture / Unknown 05/30/2024 3:45 PM EST 05/30/2024 4:21 PM EST Torrey Kwok MD LAB BLOOD ORDERABLES Final Resul t [facility] [address] [place] [address], documented in this encounter Visit Diagnoses Diagnosis Essential (primary) hypertension Unspecified essential hypertension Type 2 diabetes mellitus without complications documented in this encounter Care Teams Ager Tender Relationship Specialty Start Date End Date Torrey Kwok MD [address] [place] [address] [address] [place] [address] PCP - General Geriatric Medicine 04/25/24 documented as of this encounter
--- OUTSIDE RECORDS SUMMARY | 2024-07-09 11:35 | XMS_ITS | Encounter Summary ---
Author Organization [facility] Address [address] [place] [address] Care Team Providers Care Bridge Maintainer Name Role Phone Torrey Kwok MD Primary Care Provider [phone] Encounter Details Date Type Department Care Team (Late st Contact Info) Description 07/05/2024 Lab Requisition [facility] - Main Lab 299 [facility] [place] [address] Torrey Kwok MD [address] [place], [place] [id number] Type 2 diabetes mellitus with diabetic chronic [...] mmol/L LAB CHEMISTRY METHOD 07/07/2024 12:00 PM [facility] Potassium 4.0 3.5 - 5.5 mmol/L LAB CHEMISTRY METHOD 07/07/2024 12:00 PM [facility] Chloride 107 96 - 110 mmol/L LAB CHEMISTRY METHOD 07/07/2024 12:00 PM [facility] CO2 27 21 - 32 mmol/L LAB CHEMISTRY METHOD 07/07/2024 12:00 PM [facility] Anion Gap 8 3 - 11 LAB CHEMISTRY METHOD 07/07/2024 12:00 PM [facility] Glucose 86 70 - 100 mg/dL LAB CHEMISTRY METHOD 07/07/2024 12:00 PM [facility] BUN 37(H) 5 - 25 mg/dL LAB CHEMISTRY METHOD 07/07/2024 12:00 PM [facility] Creatinine 1.13(H) 0.50 - 1.10 mg/dL LAB CHEMISTRY METHOD 07/07/2024 12:00 PM [facility] eGFR 47(L) >=60 mL/min/1. 73m2 LAB CHEMISTRY METHOD 07/07/2024 12:00 PM [facility] Comment:Calculation based on the??Chronic Kidney Disease Epidemiology Collaboration (CKD-EPI) equation refit??without adjustment for race. BUN/Creatinine Ratio 32.7 LAB CHEMISTRY METHOD 07/07/2024 12:00 PM [facility] Calcium 8.8 8.5 - 10.5 mg/dL LAB CHEMISTRY METHOD 07/07/2024 12:00 PM [facility] Blood Venous blood specimen / Unknown Venipuncture / Unknown 07/07/2024 5:35 AM EDT 07/07/2024 10:37 AM EDT Torrey Kwok MD LAB BLOOD ORDERABLES Final Resul t [facility] [address] [place] [address], * (ABNORMAL) Complete blood count (07/07/2024 5:35 AM EDT) [facility] WBC 6.3 4.8 - 10.8 K/mcL LAB HEMETOLOGY METHOD 07/07/2024 11:[address] [facility] RBC 2.90(L) 3.80 - 4.80 M/mcL LAB HEMETOLOGY METHOD 07/07[facility]24 [facility] Hemoglobin 9.5(L) 11.5 - 16.0 g/dL LAB HEMETOLOGY METHOD 07/07/2024 11:[address] [facility] Hematocrit 30.2(L) 35.0 - 47.0 % LAB HEMETOLOGY METHOD 07/07/2024 11:43 AM [facility] MCV 103.4(H) 79.0 - 98.0 FL LAB HEMETOLOGY METHOD 07/07/2024 11:[address] [facility] MCH 32.5(H) 27.0 - 32.0 pcg LAB HEMETOLOGY METHOD 07/07/2024 11:[address] [facility] MCHC 31.5(L) 32.0 - 37.0 g/dL LAB HEMETOLOGY METHOD 07/07/2024 11:43 AM [facility] RDW 18.3(H) 11.0 - 15.0 % LAB HEMETOLOGY METHOD 07/07/2024 11:[address] [facility] Platelets 312 130 - 400 K/mcL LAB HEMETOLOGY METHOD 07/07/2024 11:[address] [facility] MPV 10.8 7.0 - 11.0 FL LAB HEMETOLOGY METHOD 07/07/2024 11:[address] [facility] NRBC 0.0 <1.0 % LAB HEMETOLOGY METHOD 07/07/2024 11:[address] [facility] NRBC Absolute 0.00 <0.10 K/mcL LAB HEMETOLOGY METHOD 07/07/2024 11:[address] [facility] Blood Venous blood specimen / Unknown Venipuncture / Unknown 07/07/2024 5:35 AM EDT 07/07/2024 10:37 AM EDT us Torrey Kwok MD LAB BLOOD ORDERABLES Final Resul t [facility] [address] [place] [address], documented in this encounter Visit Diagnoses Diagnosis Type 2 diabetes mellitus with diabetic chronic kidney disease (CMS/HCC) Essential (primary) hypertension Unspecified essential hypertension Heart failure, unspecified (CMS/HCC) Heart failure, unspecified 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
--- OUTSIDE RECORDS SUMMARY | 2024-07-09 11:35 | XMS_ITS | Encounter Summary ---
Author Organization [facility] Address [address] [place] [phone] Care Team Providers Care Saw Sharpener Name Role Phone Torrey Kwok MD Primary Care Provider [phone] Encounter Details Date Type Department Care Team (Late st Contact Info) Description 05/09/2024 Lab Requisition [facility] - Main Lab [address] [facility] [place] [address] Torrey Kwok MD [address] [place], [place] [id number] Type 2 diabetes mellitus with unspecified diabetic [...] mmol/L LAB CHEMISTRY METHOD 05/12/2024 1:22 PM [facility] Potassium 3.5 3.5 - 5.5 mmol/L LAB CHEMISTRY METHOD 05/12/2024 1:22 PM [facility] Chloride 98 96 - 110 mmol/L LAB CHEMISTRY METHOD 05/12/2024 1:22 PM [facility] CO2 30 21 - 32 mmol/L LAB CHEMISTRY METHOD 05/12/2024 1:22 PM [facility] Anion Gap 7 3 - 11 LAB CHEMISTRY METHOD 05/12/2024 1:22 PM [facility] Glucose 219(H) 70 - 100 mg/dL LAB CHEMISTRY METHOD 05/12/2024 1:22 PM [facility] BUN 28(H) 5 - 25 mg/dL LAB CHEMISTRY METHOD 05/12/2024 1:22 PM [facility] Creatinine 0.97 0.50 - 1.10 mg/dL LAB CHEMISTRY METHOD 05/12/2024 1:22 PM [facility] eGFR 57(L) >=60 mL/min/1. 73m2 LAB CHEMISTRY METHOD 05/12/2024 1:22 PM [facility] Comment:Calculation based on the??Chronic Kidney Disease Epidemiology Collaboration (CKD-EPI) equation refit??without adjustment for race. BUN/Creatinine Ratio 28.9 LAB CHEMISTRY METHOD 05/12/2024 1:22 PM [facility] Calcium 8.6 8.5 - 10.5 mg/dL LAB CHEMISTRY METHOD 05/12/2024 1:22 PM [facility] Blood Venous blood specimen / Unknown 05/12/2024 5:48 AM EST 05/12/2024 11:28 AM EST us Torrey Kwok MD LAB BLOOD ORDERABLES Final Resul t [facility] [address] [place] [address], [place] [phone] * (ABNORMAL) Complete blood count (05/12/2024 5:48 AM EST) WBC 7.5 4.8 - 10.8 K/mcL LAB HEMETOLOGY METHOD 05/12/2024 12:44 PM [facility] RBC 3.30(L) 3.80 - 4.80 M/mcL LAB HEMETOLOGY METHOD 05/12/2024 12:44 PM [facility] Hemoglobin 10.5(L) 11.5 - 16.0 g/dL LAB HEMETOLOGY METHOD 05/12/2024 12:44 PM [facility] Hematocrit 33.5(L) 35.0 - 47.0 % LAB HEMETOLOGY METHOD 05/12/2024 12:44 PM [facility] MCV 100.9(H) 79.0 - 98.0 FL LAB HEMETOLOGY METHOD 05/12/2024 12:44 PM [facility] MCH 31.6 27.0 - 32.0 pcg LAB HEMETOLOGY METHOD 05/12/2024 12:44 PM [facility] MCHC 31.3(L) 32.0 - 37.0 g/dL LAB HEMETOLOGY METHOD 05/12/2024 12:44 PM [facility] RDW 20.0(H) 11.0 - 15.0 % LAB HEMETOLOGY METHOD 05/12/2024 12:44 PM [facility] Platelets 386 130 - 400 K/mcL LAB HEMETOLOGY METHOD 05/12/2024 12:44 PM [facility] MPV 10.3 7.0 - 11.0 FL LAB HEMETOLOGY METHOD 05/12/2024 12:44 PM EST [facility] NRBC 0.0 <1.0 % LAB HEMETOLOGY METHOD 05/12/2024 12:44 PM EST [facility] NRBC Absolute 0.00 <0.10 K/mcL LAB HEMETOLOGY METHOD 05/12/2024 12:44 PM EST [facility] Blood Venous blood specimen / Unknown 05/12/2024 5:48 AM EST 05/12/2024 11:25 AM EST Torrey Kwok MD LAB BLOOD ORDERABLES Final Resul t [facility] [address] [place] [address], documented in this encounter Visit Diagnoses Diagnosis 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
--- OUTSIDE RECORDS SUMMARY | 2024-07-09 11:35 | XMS_ITS | Encounter Summary ---
Author Organization [facility] Address [address] [place] [phone] Care Team Providers Care Cane Weigher Name Role Phone Torrey Kwok MD Primary Care Provider [phone] Encounter Details Date Type Department Care Team (Late st Contact Info) Description 06/21/2024 Lab Requisition [facility] - Main Lab 299 [facility] [place] [address] Torrey Kwok MD [address] [place] [address] Type 2 diabetes mellitus with diabetic chronic [...] stimulating hormone (06/23/2024 5:47 AM EDT) Pathologist [facility] TSH 21.48(H) 0.40 - 4.00 mcIU/mL LAB CHEMISTRY METHOD 06/23/2024 1:59 PM EDT [facility] Blood Venous blood specimen / Unknown Venipuncture / Unknown 06/23/2024 5:47 AM EDT 06/23/2024 11:30 AM EDT Torrey Kwok MD LAB BLOOD ORDERABLES Final Resul t [facility] [address] [place] [address], [place] [phone] * (ABNORMAL) Basic metabolic panel (06/23/2024 5:47 AM EDT) [facility] Sodium 137 133 - 145 mmol/L LAB CHEMISTRY METHOD 06/23/2024 1:47 PM [facility] Potassium 3.9 3.5 - 5.5 mmol/L LAB CHEMISTRY METHOD 06/23/2024 1:47 PM [facility] Chloride 102 96 - 110 mmol/L LAB CHEMISTRY METHOD 06/23/2024 1:47 PM T [facility] CO2 30 21 - 32 mmol/L LAB CHEMISTRY METHOD 06/23/2024 1:47 PM [facility] Anion Gap 5 3 - 11 LAB CHEMISTRY METHOD 06/23/2024 1:47 PM [facility] Glucose 70 70 - 100 mg/dL LAB CHEMISTRY METHOD 06/23/2024 1:47 PM [facility] BUN 33(H) 5 - 25 mg/dL LAB CHEMISTRY METHOD 06/23/2024 1:47 PM T [facility] Creatinine 0.86 0.50 - 1.10 mg/dL LAB CHEMISTRY METHOD 06/23/2024 1:47 PM EDT [facility] eGFR 65 >=60 mL/min/1. 73m2 LAB CHEMISTRY METHOD 06/23/2024 1:47 PM EDT [facility] Comment:Calculation based on the??Chronic Kidney Disease Epidemiology Collaboration (CKD-EPI) equation refit??without adjustment for race. BUN/Creatinine Ratio 38.4 LAB CHEMISTRY METHOD 06/23/2024 1:47 PM EDT [facility] Calcium 8.7 8.5 - 10.5 mg/dL LAB CHEMISTRY METHOD 06/23/2024 1:47 PM EDT [facility] Blood Venous blood specimen / Unknown Venipuncture / Unknown 06/23/2024 5:47 AM EDT 06/23/2024 11:30 AM EDT us Torrey Kwok MD LAB BLOOD ORDERABLES Final Resul t [facility] [address] [place] [address], * (ABNORMAL) Complete blood count (06/23/2024 5:47 AM EDT) WBC 5.9 4.8 - 10.8 K/mcL LAB HEMETOLOGY METHOD 06/23/2024 12:35 PM EDT [facility] RBC 3.00(L) 3.80 - 4.80 M/mcL LAB HEMETOLOGY METHOD 06/23/2024 12:35 PM EDT [facility] Hemoglobin 9.6(L) 11.5 - 16.0 g/dL LAB HEMETOLOGY METHOD 06/23/2024 12:35 PM EDT [facility] Hematocrit 31.2(L) 35.0 - 47.0 % LAB HEMETOLOGY METHOD 06/23/2024 12:35 PM EDT [facility] MCV 103.3(H) 79.0 - 98.0 FL LAB HEMETOLOGY METHOD 06/23/2024 12:35 PM EDT [facility] MCH 31.8 27.0 - 32.0 pcg LAB HEMETOLOGY METHOD 06/23/2024 12:35 PM EDT [facility] MCHC 30.8(L) 32.0 - 37.0 g/dL LAB HEMETOLOGY METHOD 06/23/2024 12:35 PM EDT [facility] RDW 18.7(H) 11.0 - 15.0 % LAB HEMETOLOGY METHOD 06/23/2024 12:35 PM EDT [facility] Platelets 244 130 - 400 K/mcL LAB HEMETOLOGY METHOD 06/23/2024 12:35 PM EDT [facility] MPV 11.0 7.0 - 11.0 FL LAB HEMETOLOGY METHOD 06/23/2024 12:35 PM EDT [facility] NRBC 0.0 <1.0 % LAB HEMETOLOGY METHOD 06/23/2024 12:35 PM EDT [facility] NRBC Absolute 0.00 <0.10 K/mcL LAB HEMETOLOGY METHOD 06/23/2024 12:35 PM EDT [facility] Blood Venous blood specimen / Unknown Venipuncture / Unknown 06/23/2024 5:47 AM EDT 06/23/2024 11:30 AM EDT us Torrey Kwok MD LAB BLOOD ORDERABLES Final Resul t [facility] [address] [place] [address], documented in this encounter Visit Diagnoses Diagnosis Type 2 diabetes mellitus with diabetic chronic kidney disease (CMS/HCC) Essential (primary) hypertension Unspecified essential hypertension Heart failure, unspecified (CMS/HCC) Heart failure, unspecified documented in this encounter Care Teams Cane Weigher Relationship Specialty Start Date End Date Torrey Kwok MD [address] [place] [address] [address] [place] [address] PCP - General Geriatric Medicine 04/25/24 documented as of this encounter
--- OUTSIDE RECORDS SUMMARY | 2024-07-09 11:35 | XMS_ITS | Encounter Summary ---
Author Organization [facility] Address [address] [place] [phone] Care Team Providers Care Vp Research Name Role Phone Torrey Kwok MD Primary Care Provider [phone] Encounter Details Date Type Department Care Team (Late st Contact Info) Description 06/20/2024 Lab Requisition [facility] - Main Lab [address] [facility] [address] ?.?? [place] [address] Torrey Kwok MD [address] [place] [address] Essential (primary) hypertension; Type 2 diabetes mellitus [...] LAB CHEMISTRY METHOD 06/20/2024 11:38 AM EDT [facility] Potassium 4.1 3.5 - 5.5 mmol/L LAB CHEMISTRY METHOD 06/20/2024 11:38 AM [facility] Chloride 104 96 - 110 mmol/L LAB CHEMISTRY METHOD 06/20/2024 11:38 AM [facility] CO2 29 21 - 32 mmol/L LAB CHEMISTRY METHOD 06/20/2024 11:38 AM [facility] Anion Gap 5 3 - 11 LAB CHEMISTRY METHOD 06/20/2024 11:38 AM [facility] Glucose 53(L) 70 - 100 mg/dL LAB CHEMISTRY METHOD 06/20/2024 11:38 AM [facility] BUN 39(H) 5 - 25 mg/dL LAB CHEMISTRY METHOD 06/20/2024 11:38 AM [facility] Creatinine 0.97 0.50 - 1.10 mg/dL LAB CHEMISTRY METHOD 06/20/2024 11:38 AM [facility] eGFR 57(L) >=60 mL/min/1. 73m2 LAB CHEMISTRY METHOD 06/20/2024 11:38 AM [facility] Comment:Calculation based on the??Chronic Kidney Disease Epidemiology Collaboration (CKD-EPI) equation refit??without adjustment for race. BUN/Creatinine Ratio 40.2 LAB CHEMISTRY METHOD 06/20/2024 11:38 AM [facility] Calcium 9.2 8.5 - 10.5 mg/dL LAB CHEMISTRY METHOD 06/20/2024 11:38 AM [facility] Blood Venous blood specimen / Unknown Venipuncture / Unknown 06/20/2024 6:10 AM EDT 06/20/2024 10:40 AM EDT us Torrey Kwok MD LAB BLOOD ORDERABLES Final Resul t [facility] [address] [place] [address], [place] [phone] * (ABNORMAL) Complete blood count (06/20/2024 6:10 AM EDT) [facility] WBC 6.5 4.8 - 10.8 K/mcL LAB HEMETOLOGY METHOD 06/20/2024 11:08 AM [facility] RBC 3.70(L) 3.80 - 4.80 M/mcL LAB HEMETOLOGY METHOD 06/20/2024 11:08 AM [facility] Hemoglobin 12.0 11.5 - 16.0 g/dL LAB HEMETOLOGY METHOD 06/20/2024 11:08 AM [facility] Hematocrit 37.1 35.0 - 47.0 % LAB HEMETOLOGY METHOD 06/20/2024 11:08 AM [facility] MCV 100.5(H) 79.0 - 98.0 FL LAB HEMETOLOGY METHOD 06/20/2024 11:08 AM [facility] MCH 32.5(H) 27.0 - 32.0 pcg LAB HEMETOLOGY METHOD 06/20/2024 11:08 AM [facility] MCHC 32.3 32.0 - 37.0 g/dL LAB HEMETOLOGY METHOD 06/20/2024 11:08 AM [facility] RDW 18.3(H) 11.0 - 15.0 % LAB HEMETOLOGY METHOD 06/20/2024 11:08 AM [facility] Platelets 313 130 - 400 K/mcL LAB HEMETOLOGY METHOD 06/20/2024 11:08 AM [facility] MPV 10.8 7.0 - 11.0 FL LAB HEMETOLOGY METHOD 06/20/2024 11:08 AM [facility] NRBC 0.0 <1.0 % LAB HEMETOLOGY METHOD 06/20/2024 11:08 AM EDT [facility] NRBC Absolute 0.00 <0.10 K/mcL LAB HEMETOLOGY METHOD 06/20/2024 11:08 AM EDT [facility] Blood Venous blood specimen / Unknown Venipuncture / Unknown 06/20/2024 6:10 AM EDT 06/20/2024 10:40 AM EDT Torrey Kwok MD LAB BLOOD ORDERABLES Final Resul t [facility] [address] [place] [address], documented in this encounter Visit Diagnoses Diagnosis Essential (primary) hypertension Unspecified essential hypertension Type 2 diabetes mellitus without complications documented in this encounter Care Teams Vp Research Relationship Specialty Start Date End Date Torrey Kwok MD [address] [place] [address] [address] [place] [address] PCP - General Geriatric Medicine 04/25/24 documented as of this encounter
--- OUTSIDE RECORDS SUMMARY | 2024-07-09 11:35 | XMS_ITS | Encounter Summary ---
Author Organization [facility] Address [address] [place] [phone] Care Team Providers Care Pediatric Nephrologist Name Role Phone Torrey Kwok MD Primary Care Provider [phone] Encounter Details Date Type Department Care Team (Late st Contact Info) Description 07/03/2024 Lab Requisition [facility] - Main Lab [address] [facility] [place] [address] Torrey Kwok MD [address] [place] [address] Chronic kidney disease, stage 3 unspecified (CMS/HCC); [...] Hold for add-ons. 07/04/2024 12:01 PM EDT [facility] Comment:Auto resulted. Blood Venous blood specimen / Unknown Venipuncture / Unknown 07/04/2024 7:07 AM EDT 07/04/2024 10:40 AM EDT Torrey Kwok MD LAB BLOOD ORDERABLES Final Resul t [facility] ([facility] [address] [place] [address], documented in this encounter Visit Diagnoses Diagnosis Chronic kidney disease, stage 3 unspecified (CMS/HCC) Type 2 diabetes mellitus with hyperglycemia (CMS/HCC) documented in this encounter Care Teams Pediatric Nephrologist Relationship Specialty Start Date End Date Torrey Kwok MD [address] [place] [address] [address] [place] [address] PCP - General Geriatric Medicine 04/25/24 documented as of this encounter
--- OUTSIDE RECORDS SUMMARY | 2024-07-09 11:35 | XMS_ITS | Clinical Summary ---
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) 07/03/2024 Lab Requisition [facility] - Main Lab [address] [place] [phone] Torrey Kwok MD Chronic kidney disease, stage 3 unspecified (CMS/HCC); Type 2 diabetes mellitus with hyperglycemia (CMS/HCC) 06/28/2024 Lab Requisition [facility] Lab [address] [place] [phone] Torrey Kwok MD Type 2 diabetes mellitus with diabetic chronic kidney disease (CMS/HCC); Essential (primary) hypertension; Heart failure, unspecified (CMS/HCC); 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) 06/21/2024 Lab Requisition [facility] - Main Lab [address] [place] [phone] Torrey Kwok MD Type 2 diabetes mellitus with diabetic chronic kidney disease (CMS/HCC); Essential (primary) hypertension; Heart failure, unspecified (CMS/HCC) 06/20/2024 Lab Requisition [facility] Main Lab [address] [place] [phone] Torrey Kwok MD Essential (primary) hypertension; Type 2 diabetes mellitus without complications (CMS/HCC) 06/14/2024 Lab Requisition [facility] Lab [address] [place] [phone] Torrey Kwok MD Type 2 diabetes mellitus with diabetic chronic kidney disease (CMS/HCC); Essential (primary) hypertension; Heart failure, unspecified (CMS/HCC); 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/HCC); Type 2 diabetes mellitus with diabetic chronic kidney disease (CMS/HCC); Chronic kidney disease, stage 3 unspecified (CMS/HCC); Vitamin D deficiency, unspecified; Essential (primary) hypertension 06/02/2024 Lab Requisition [facility] Lab [address] [place] [phone] Torrey Kwok MD Chronic diastolic (congestive) heart failure (CMS/HCC); Chronic kidney disease, stage 3 unspecified (CMS/HCC) 05/31/2024 Lab Requisition [facility] Lab [address] [place] [phone] Torrey Kwok MD Type 2 diabetes mellitus with diabetic chronic kidney disease (CMS/HCC); Essential (primary) hypertension; Heart failure, unspecified (CMS/HCC); 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 without macular edema (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/HCC); Heart failure, unspecified (CMS/HCC); Essential (primary) hypertension; Type 2 diabetes mellitus with diabetic chronic kidney disease (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/HCC); Heart failure, unspecified (CMS/HCC); Essential (primary) hypertension; Type 2 diabetes mellitus with diabetic chronic kidney disease (CMS/HCC) 05/06/2024 Lab Requisition [facility] Main Lab [address] [place] [phone] Torrey Kwok MD Type 2 diabetes mellitus without complications ([facility]/HCC) 05/05/2024 Lab Requisition [facility] - Main Lab [address] [place] [phone] Torrey Kwok MD Chronic kidney disease, stage 3 unspecified ([facility]); Type 2 diabetes mellitus with diabetic chronic kidney disease ([facility]/HCC) 05/01/2024 Lab Requisition [facility] Lab [address] [place] [phone] Torrey Kwok MD Type 2 diabetes mellitus without complications ([facility]/HCC) 04/30/2024 Lab Requisition [facility] Lab [address] [place] [phone] Torrey Kwok MD Type 2 diabetes mellitus without complications (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); Heart failure, unspecified ([facility]); Essential (primary) hypertension from Last 3 Months [...] LAB HEMETOLOGY METHOD 07/07/2024 11:43 AM EDT [facility] MCHC 31.5(L) 32.0 - 37.0 g/dL LAB HEMETOLOGY METHOD 07/07/2024 11:43 AM EDT [facility] RDW 18.3(H) 11.0 - 15.0 % LAB HEMETOLOGY METHOD 07/07/2024 11:43 AM EDT [facility] Platelets 312 130 - 400 K/mcL LAB HEMETOLOGY METHOD 07/07/2024 11:43 AM EDT [facility] MPV 10.8 7.0 - 11.0 FL LAB HEMETOLOGY METHOD 07/07/2024 11:43 AM EDT [facility] NRBC 0.0 <1.0 % LAB HEMETOLOGY METHOD 07/07/2024 11:43 AM EDT [facility] NRBC Absolute 0.00 <0.10 K/mcL LAB HEMETOLOGY METHOD 07/07/2024 11:43 AM EDT [facility] Blood Venous blood specimen / Unknown Venipuncture / Unknown 07/07/2024 5:35 AM EDT 07/07/2024 10:37 AM EDT us Torrey Kwok MD LAB BLOOD ORDERABLES Final Resul t [facility] [address] [place] [address], * (ABNORMAL) Basic metabolic panel (07/07/2024 5:35 AM EDT) Only the most recent of15 resultswithin the time period is included. Sodium 142 133 - 145 mmol/L LAB CHEMISTRY METHOD 07/07/2024 12:00 PM EDT [facility] Potassium 4.0 3.5 - 5.5 mmol/L LAB CHEMISTRY METHOD 07/07/2024 12:00 PM EDT [facility] Chloride 107 96 - 110 mmol/L [...] Resul t [facility] [address] [place] [address], * Lavender tube (07/04/2024 7:07 AM EDT) [facility] Extra Tube Hold for add-ons. 07/04/2024 12:01 PM EDT [facility] Comment:Auto resulted. Blood Venous blood specimen / Unknown Venipuncture / Unknown 07/04/2024 7:07 AM EDT 07/04/2024 10:40 AM EDT us Torrey Kwok MD LAB BLOOD ORDERABLES Final Resul t Performing Organization Address City/[facility]/ZIP Co de Phone Number [facility] [address] [place] [address], [place] [phone] * (ABNORMAL) Thyroid stimulating hormone (06/23/2024 5:47 AM EDT) Only the most recent of2 resultswithin the time period is included. Pathologist [facility] TSH 21.48(H) 0.40 - 4.00 mcIU/mL LAB CHEMISTRY METHOD 06/23/2024 1:59 PM EDT [facility] Blood Venous blood specimen / Unknown Venipuncture / Unknown 06/23/2024 5:47 AM EDT 06/23/2024 11:30 AM EDT us Torrey Kwok MD LAB BLOOD ORDERABLES Final Resul t Performing Organization Address City/[facility]/ZIP Co de Phone Number [facility] [address] [place] [address], [place] [phone] * Vitamin D 25 hydroxy (06/07/2024 6:36 AM EST) Only the most recent of2 resultswithin the time period is included. Pathologist [facility] Vit D, 25-Hydroxy 41.4 30.0 - 80.0 ng/mL LAB CHEMISTRY METHOD 06/07/2024 1:29 PM EST [facility] Blood Venous blood specimen / Unknown Venipuncture / Unknown 06/07/2024 6:36 AM EST 06/07/2024 9:58 AM EST us Torrey Kwok MD LAB BLOOD ORDERABLES Final Resul t Performing Organization Address City/[facility]/ZIP Co de Phone Number [facility] [address] [place] [address], [place] [phone] * Folate (06/07/2024 6:36 AM EST) Only the most recent of2 resultswithin the time period is included. Pathologist [facility] Folate 9.8 2.8 - 17.0 ng/ml LAB CHEMISTRY METHOD 06/07/2024 12:13 PM EST [facility] Blood Venous blood specimen / Unknown Venipuncture / Unknown 06/07/2024 6:36 AM EST 06/07/2024 9:58 AM EST us Torrey Kwok MD LAB BLOOD ORDERABLES Final Resul t Performing Organization Address [facility] de Phone Number [facility] [address] [place] [address], [place] [phone] * (ABNORMAL) Vitamin B12 (06/07/2024 6:36 AM EST) Only the most recent of2 resultswithin the time period is included. [facility] Vitamin B-12 1,072(H) 250 - 900 pcg/mL LAB CHEMISTRY METHOD 06/07/2024 12:13 PM EST [facility] Blood Venous blood specimen / Unknown Venipuncture / Unknown 06/07/2024 6:36 AM EST 06/07/2024 9:58 AM EST us Torrey Kwok MD LAB BLOOD ORDERABLES Final Resul t Performing Organization Address [facility] Co de Phone Number [facility] [address] [place] [address], [place] [phone] * (ABNORMAL) B-type natriuretic peptide (05/26/2024 5:59 AM EST) BNP 320(H) <=100 pcg/mL LAB CHEMISTRY METHOD 05/26/2024 1:35 PM [facility] Blood Venous blood specimen / Unknown Venipuncture / Unknown 05/26/2024 5:59 AM EST 05/26/2024 11:00 AM EST Torrey Kwok MD LAB BLOOD ORDERABLES Final Resul t [facility] [address] [place] [address], [place] [phone] * (ABNORMAL) Comprehensive metabolic panel (05/26/2024 5:59 AM EST) Only the most recent of2 resultswithin the time period is included. Pathologist [facility] Sodium 141 133 - 145 mmol/L LAB CHEMISTRY METHOD 05/26/2024 11:56 AM [facility] Potassium 3.5 3.5 - 5.5 mmol/L LAB CHEMISTRY METHOD 05/26/2024 11:56 AM [facility] Chloride 101 96 - 110 mmol/L LAB CHEMISTRY METHOD 05/26/2024 11:56 AM [facility] CO2 26 21 - 32 mmol/L LAB CHEMISTRY METHOD 05/26/2024 11:56 AM [facility] Anion Gap 14(H) 3 - 11 LAB CHEMISTRY METHOD 05/26/2024 11:56 AM [facility] Glucose 200(H) 70 - 100 mg/dL LAB CHEMISTRY METHOD 05/26/2024 11:56 AM [facility] BUN 35(H) 5 - 25 mg/dL LAB CHEMISTRY METHOD 05/26/2024 11:56 AM [facility] Creatinine 1.16(H) 0.50 - 1.10 mg/dL LAB CHEMISTRY METHOD 05/26/2024 11:56 AM [facility] eGFR 46(L) >=60 mL/min/1. 73m2 LAB CHEMISTRY METHOD 05/26/2024 11:56 AM [facility] Comment:Calculation based on the??Chronic Kidney Disease Epidemiology Collaboration (CKD-EPI) equation refit??without adjustment for race. BUN/Creatinine Ratio 30.2 LAB CHEMISTRY METHOD 05/26/2024 11:56 AM [facility] Calcium 8.9 8.5 - 10.5 mg/dL LAB CHEMISTRY METHOD 05/26/2024 11:56 AM [facility] AST (SGOT) 21 10 - 42 unit/L LAB CHEMISTRY METHOD 05/26/2024 11:56 AM [facility] ALT (SGPT) 20 10 - 60 unit/L LAB CHEMISTRY METHOD 05/26/2024 11:56 AM [facility] Alkaline Phosphatase 146(H) 42 - 121 unit/L LAB CHEMISTRY METHOD 05/26/2024 11:56 AM [facility] Total Protein 6.8 6.0 - 8.0 g/dL LAB CHEMISTRY METHOD 05/26/2024 11:56 AM [facility] Albumin 3.6 3.2 - 5.0 g/dL LAB CHEMISTRY METHOD 05/26/2024 11:56 AM [facility] Total Bilirubin 0.6 0.0 - 1.4 mg/dL LAB CHEMISTRY METHOD 05/26/2024 11:56 AM [facility] Blood Venous blood specimen / Unknown Venipuncture / Unknown 05/26/2024 5:59 AM EST 05/26/2024 11:00 AM EST us Torrey Kwok MD LAB BLOOD ORDERABLES Final Resul t [facility] [address] [place] [address], * (ABNORMAL) Urinalysis with reflex microscopic and culture (04/28/2024 12:15 PM EST) Specific [place] Urine 1.021 1.003 - 1.030 LAB URINALYSIS - AUTOMATED METHOD 04/29/2024 11:05 AM [facility] pH, Urine 5.5 5.0 - 8.0 pH LAB URINALYSIS - AUTOMATED METHOD 04/29/2024 11:05 AM [facility] Leukocytes, Urine Trace(A) Negative LAB URINALYSIS - AUTOMATED METHOD 04/29/2024 11:05 AM [facility] Nitrite, Urine Negative Negative LAB URINALYSIS - AUTOMATED METHOD 04/29/2024 11:05 AM [facility] Protein, Urine Trace <=Trace mg/dL LAB URINALYSIS - AUTOMATED METHOD 04/29/2024 11:05 AM [facility] Glucose, Urine >=1000(A) Negative mg/dL LAB URINALYSIS - AUTOMATED METHOD 04/29/2024 11:05 AM [facility] Ketones, Urine 15(A) Negative mg/dL LAB URINALYSIS - AUTOMATED METHOD 04/29/2024 11:05 AM [facility] Urobilinogen , Urine 0.2 0.2 - 1.0 mg/dL LAB URINALYSIS - AUTOMATED METHOD 04/29/2024 11:05 AM [facility] Bilirubin, Urine Negative Negative LAB URINALYSIS - AUTOMATED METHOD 04/29/2024 11:05 AM [facility] Blood, Urine Negative Negative LAB URINALYSIS - AUTOMATED METHOD 04/29/2024 11:05 AM [facility] RBC, Urine 0.8 0 - 4 /HPF LAB URINALYSIS - AUTOMATED METHOD 04/29/2024 11:05 AM [facility] WBC, Urine 12.6(H) 0 - 4 /HPF LAB URINALYSIS - AUTOMATED METHOD 04/29/2024 11:05 AM [facility] Squamous Epithelial, Urine 10 0 - 60 /LPF LAB URINALYSIS - AUTOMATED METHOD 04/29/2024 11:05 AM [facility] Bacteria, Urine Many(A) Negative /HPF LAB URINALYSIS - AUTOMATED METHOD 04/29/2024 11:05 AM [facility] Hyaline Casts, Urine 0.4 0 - 3 /LPF LAB URINALYSIS - AUTOMATED METHOD 04/29/2024 11:05 AM [facility] Urine Urine specimen from urinary conduit / Unknown Non-blood Collection / Unknown 04/28/2024 12:15 PM EST 04/29/2024 9:53 AM EST us Torrey Kwok MD LAB URINE ORDERABLES Final Resul t Performing Organization Address [facility] Co de Phone Number [facility] [address] [place] [address], [place] [phone] * Frost urine culture tube (04/28/2024 12:15 PM EST) Extra Tube Hold for add-ons. 04/29/2024 11:01 AM [facility] Comment:Auto resulted. Urine Urine specimen obtained by clean catch procedure / Unknown 04/28/2024 12:15 PM EST 04/29/2024 9:53 AM EST us Torrey Kwok MD LAB URINE ORDERABLES Final Resul t Performing Organization Address City/[facility]/ZIP Co de Phone Number [facility] [address] [place] [address], [place] [phone] * (ABNORMAL) Culture urine (04/28/2024 12:15 PM EST) Culture, Urine >100,000 CFU/mL Escherichia coli(A) ANDRE 05/01/2024 11:04 AM [facility] Urine Urine specimen from [...] MICROBIOLOGY - GENERAL ORDER GENET Final Result [facility] [address] [place] [address], * (ABNORMAL) Hemoglobin A1c (04/25/2024 5:49 AM EST) Hemoglobin A1C 8.7(H) <6.5 % LAB CHEMISTRY METHOD 04/25/2024 1:33 PM EST [facility] Mean Bld Glu Estim. 203 mg/dL LAB CHEMISTRY METHOD 04/25/2024 1:33 PM EST [facility] Blood Venous blood specimen / Unknown Venipuncture / Unknown 04/25/2024 5:49 AM EST 04/25/2024 9:21 AM EST Torrey Kwok MD LAB BLOOD ORDERABLES Final Resul t [facility] [address] [place] [address], from Last 3 Months Insurance MEDICARE [facility] Care Teams Clearing House Clerk Relationship Specialty Start Date End Date Torrey Kwok MD [address] [place] [address] [address] [place] [address] PCP - General Geriatric Medicine 04/25/24
--- OUTSIDE RECORDS SUMMARY | 2024-07-09 11:35 | XMS_ITS | Encounter Summary ---
Author Organization [facility] Address [address] [place] [address] Care Team Providers Care Cloth Hauler Name Role Phone Torrey Kwok MD Primary Care Provider [phone] Encounter Details Date Type Department Care Team (Late st Contact Info) Description 05/09/2024 Lab Requisition [facility] - Main Lab [address] [facility] [place] [address] Torrey Kwok MD [address] [place], [place] [phone] Type 2 diabetes mellitus with unspecified diabetic [...] (CMS/HCC) documented in this encounter Care Teams Cloth Hauler Relationship Specialty Start Date End Date Torrey Kwok MD [address] [place], [place] [phone] PCP - General Geriatric Medicine 04/25/24 documented as of this encounter
--- OUTSIDE RECORDS SUMMARY | 2024-07-09 11:35 | XMS_ITS | Encounter Summary ---
Author Organization [facility] Address [address] [place] [phone] Care Team Providers Care Casting Agent Name Role Phone Torrey Kwok MD Primary Care Provider Encounter Details Date Type Department Care Team (Late st Contact Info) Description 06/28/2024 Lab Requisition [facility] - Main Lab [address] [facility] [place] [address] Torrey Kwok MD [address] [place], [place] [id number] Type 2 diabetes mellitus with diabetic chronic [...] mmol/L LAB CHEMISTRY METHOD 06/30/2024 12:00 PM [facility] Potassium 4.1 3.5 - 5.5 mmol/L LAB CHEMISTRY METHOD 06/30/2024 12:00 PM [facility] Chloride 106 96 - 110 mmol/L LAB CHEMISTRY METHOD 06/30/2024 12:00 PM [facility] CO2 28 21 - 32 mmol/L LAB CHEMISTRY METHOD 06/30/2024 12:00 PM [facility] Anion Gap 8 3 - 11 LAB CHEMISTRY METHOD 06/30/2024 12:00 PM [facility] Glucose 159(H) 70 - 100 mg/dL LAB CHEMISTRY METHOD 06/30/2024 12:00 PM [facility] BUN 47(H) 5 - 25 mg/dL LAB CHEMISTRY METHOD 06/30/2024 12:00 PM [facility] Creatinine 1.11(H) 0.50 - 1.10 mg/dL LAB CHEMISTRY METHOD 06/30/2024 12:00 PM [facility] eGFR 48(L) >=60 mL/min/1. 73m2 LAB CHEMISTRY METHOD 06/30/2024 12:00 PM [facility] Comment:Calculation based on the??Chronic Kidney Disease Epidemiology Collaboration (CKD-EPI) equation refit??without adjustment for race. BUN/Creatinine Ratio 42.3 LAB CHEMISTRY METHOD 06/30/2024 12:00 PM [facility] Calcium 8.8 8.5 - 10.5 mg/dL LAB CHEMISTRY METHOD 06/30/2024 12:00 PM [facility] Blood Venous blood specimen / Unknown Venipuncture / Unknown 06/30/2024 6:10 AM EDT 06/30/2024 11:01 AM EDT us Torrey Kwok MD LAB BLOOD ORDERABLES Final Resul t [facility] [address] [place] [address], * (ABNORMAL) Complete blood count (06/30/2024 6:10 AM EDT) [facility] WBC 6.0 4.8 - 10.8 K/mcL LAB HEMETOLOGY METHOD 06/30/2024 11:46 AM EDT [facility] RBC 2.90(L) 3.80 - 4.80 M/mcL LAB HEMETOLOGY METHOD 06/30/2024 11:46 AM [facility] Hemoglobin 9.5(L) 11.5 - 16.0 g/dL LAB HEMETOLOGY METHOD 06/30/2024 11:46 AM [facility] Hematocrit 29.9(L) 35.0 - 47.0 % LAB HEMETOLOGY METHOD 06/30/2024 11:46 AM [facility] MCV 101.7(H) 79.0 - 98.0 FL LAB HEMETOLOGY METHOD 06/30/2024 11:46 AM [facility] MCH 32.3(H) 27.0 - 32.0 pcg LAB HEMETOLOGY METHOD 06/30/2024 11:46 AM [facility] MCHC 31.8(L) 32.0 - 37.0 g/dL LAB HEMETOLOGY METHOD 06/30/2024 11:46 AM [facility] RDW 18.5(H) 11.0 - 15.0 % LAB HEMETOLOGY METHOD 06/30/2024 11:46 AM [facility] Platelets 309 130 - 400 K/mcL LAB HEMETOLOGY METHOD 06/30/2024 11:46 AM EDT [facility] MPV 10.7 7.0 - 11.0 FL LAB HEMETOLOGY METHOD 06/30/2024 11:46 AM EDT [facility] NRBC 0.0 <1.0 % LAB HEMETOLOGY METHOD 06/30/2024 11:46 AM EDT [facility] NRBC Absolute 0.00 <0.10 K/mcL LAB HEMETOLOGY METHOD 06/30/2024 11:46 AM EDT [facility] Blood Venous blood specimen / Unknown Venipuncture / Unknown 06/30/2024 6:10 AM EDT 06/30/2024 11:01 AM EDT Torrey Kwok MD LAB BLOOD ORDERABLES Final Resul t [facility] [address] [place] [address], documented in this encounter Visit Diagnoses Diagnosis Type 2 diabetes mellitus with diabetic chronic kidney disease (CMS/HCC) Essential (primary) hypertension Unspecified essential hypertension Heart failure, unspecified (CMS/HCC) Heart failure, unspecified 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
--- OUTSIDE RECORDS SUMMARY | 2024-07-09 11:35 | XMS_ITS | Clinical Summary ---
Author Organization [facility] Address [address] [facility] [address] [place] [address] Phone Care Team Providers Care Leases And Land Supervisor Name Role Phone Monique White MD Primary Care Provider [phone] Allergies Active Allergy Reactions Criticality Noted Date [...] patient's age to complete this topic Insurance [facility] MEDICARE [facility] MEDICARE Care Teams Leases And Land Supervisor Relationship Specialty Start Date End Date Monique White MD [facility] [address] [place] PCP - General Internal Medicine 03/11/21
== END 2024-07-09 10:45 | disposition home or self-care (01) ==
LOC: HO.HOS 10:02
PROVIDERS: Visit Provider Physician Assistant
DX: S72.001A Fracture of unspecified part of neck of right femur, initial encounter for closed fracture (principal)
CPT/HCPCS: 99024

== ENCOUNTER → 2024-07-09 10:05 | Outpatient (BNV) | payer MEDICARE, SELFPAY | PROVIDERS: Visit Provider Radiology Diagnostic Radiology | DX: S72.001A Fracture of unspecified part of neck of right femur, initial encounter for closed fracture (principal) | CPT/HCPCS: 73552 ==

== ENCOUNTER 2024-07-11 14:29 | Inpatient (IN) | payer MEDICARE, SELFPAY ==
--- NOTE | ~2024-07-11 | CT_ITS ---
CLINICAL HISTORY: altered mental startus CT head without contrast Comparison: CT/SR - CT HEAD/BRAIN WO IV CON - 06/14/24 21:57 EST Findings: No intra-axial mass, midline shift, hydrocephalus, or acute hemorrhage. Mild diffuse cerebral volume loss. Mild degree of patchy low-density within the periventricular and subcortical white matter. The visualized paranasal sinuses and mastoid air cells are normal. The orbits are within normal limits. There is no acute fracture. IMPRESSION: 1. No acute intracranial findings. This document has been electronically signed by: Gregory Ramos MD on 07/11/2024 17:46:51
--- NOTE | ~2024-07-11 | CT_ITS ---
CLINICAL HISTORY: Shortness of breath, ? pneumonia CT chest without contrast Comparison: CR/SR - XR CHEST 1V - 07/11/24 15:[address]/REG/ME/SR - CT CHEST WO IV CON - 10/06/22 07:42 EDT Findings: Cardiomegaly. Calcification of the coronary vasculature. The visualized thyroid and mediastinum are unremarkable. Prominent right breast tissue is present, as before. Small krrdb-fvrwzbd-qokm-left pleural effusions. Mild multifocal patchy bilateral airspace opacity, kkcif-yevtoks-qpvy-left. The upper abdomen is unremarkable. The bones are intact. IMPRESSION: 1. Bilateral pneumonia with kyoqk-ttqskir-mgst-left pleural effusions. 2. Cardiomegaly. Coronary artery disease. This document has been electronically signed by: Gregory Ramos MD on 07/11/2024 17:45:14
--- NOTE | ~2024-07-11 | XR_ITS ---
EXAMINATION: XR CHEST 1 VIEW HISTORY: dyspnea, low sats COMPARISON: Comparison is made with the prior examination dated 04/19/2024. FINDINGS: A single AP portable view of the chest performed at 3:47 PM is submitted. There are low lung volumes. There is prominence of the pulmonary vasculature, consistent with congestion. There is linear scarring in the lingula. There are small bilateral pleural effusions. No pneumothorax. The heart is enlarged. The aorta is calcified. There is degenerative disc disease of the spine. XR/XR chest 1V IMPRESSION: Cardiomegaly, pulmonary vascular congestion, small bilateral pleural effusions. Electronically signed by: Akbar Denson MD 07/11/2024 03:56 PM EDT
[2024-07-11 14:44] VITALS: BP 127/76; PULSE 70; RESP 22; TEMP 37.1; O2SAT 93
[2024-07-11 14:47] VITALS: BP 170/100; PULSE 64; O2SAT 88; BMI 31.2
--- NOTE | 2024-07-11 14:49 | ED_ITS ---
HPI - General Adult General Chief complaint: Dyspnea Stated complaint: CHF EXACERBATION,WEIGHT GAIN PER EMS Time Seen by Provider: 07/11/24 14:49 History of Present Illness ED Provider: Roosevelt GOMEZ narrative: The patient is an 88-year-old female with a history of atrial fibrillation on rivaroxaban who also has a history of congestive heart failure. She lives at a correction. Apparently she is on furosemide. Her furosemide dosing is very variable. Her daughter says that when the patient's BUN goes up they hold her furosemide. The furosemide has been held for several days and the patient had an increase in her weight. Today her oxygen saturation was 88% on room air and she seemed somewhat less responsive and so she was sent to the emergency room. The patient is not very alert and is not able to give any additional history. There was no reports of any definite fevers, sweats, chills. No definite report of any increase in cough. No definite report of any urinary symptoms. Related Data Home Medications ?Medication ?Instructions ?Recorded ?Confirmed travoprost 0.004 % eye drops 1 drp ophthalmic (eye) BEDTIME 06/01/20 07/09/24 acetaminophen 500 mg tablet 1,000 mg PO TID PRN Pain 08/17/21 07/09/24 glycerin (adult) 1 supp TN DAILY PRN Constipation 08/17/21 07/09/24 cholecalciferol (vitamin D3) 25 25 mcg PO DAILY 01/01/23 07/09/24 mcg (1,000 unit) capsule insulin glargine U-300 conc 300 12 unit subcut DAILY 11/17/23 07/09/24 unit/mL (1.5 mL) subcutaneous pen (Toujeo SoloStar U-300 Insulin) insulin lispro 100 unit/mL 1 sliding scale dose subcut TIDAC 11/17/23 07/09/24 subcutaneous pen (Humalog KwikPen (U-100) Insulin) calcitriol 0.25 mcg capsule 0.25 mcg PO Q48H 04/20/24 07/09/24 metoprolol succinate 25 mg 25 mg PO BEDTIME PRN high BP 04/20/24 07/09/24 tablet,extended release 24 hr rivaroxaban 15 mg tablet (Xarelto) 15 mg PO DAILY@1700 04/20/24 07/09/24 dextrose 15 gram/33 gram oral gel g PO 05/05/24 07/09/24 packet (Dex4 Glucose) melatonin 5 mg capsule mg PO .8 pm PRN insomnia 05/05/24 07/09/24 tramadol 50 mg tablet 50 mg PO DAILY PRN pain 05/05/24 07/09/24 furosemide 40 mg tablet 20 mg PO DAILY 06/20/24 07/09/24 gabapentin 300 mg capsule 100 mg PO BID 07/09/24 07/09/24 Previous Rx's ?Medication ?Instructions ?Recorded flash glucose sensor (FreeStyle #1 ea 05/23/23 Madeline 14 Day Sensor kit) flash glucose sensor (FreeStyle #6 ea 05/23/23 Madeline 14 Day Sensor kit) metoprolol succinate 100 mg 100 mg PO DAILY 90 days #90 tabs 08/30/23 tablet,extended release 24 hr pen needle, diabetic 32 gauge x #400 ea 09/17/23 (BD Eveline 2nd Gen Pen Needle) amiodarone 200 mg tablet 200 mg PO DAILY 90 days #90 tabs 10/29/23 levothyroxine 125 mcg tablet 125 mcg PO DAILY@0600 #90 tabs 12/17/23 lactulose 10 gram/15 mL oral 30 ml PO DAILY PRN for 02/01/24 solution constipation #946 mL simvastatin 10 mg tablet 10 mg PO BEDTIME #90 tabs 06/16/24 Allergies Allergy/AdvReac Type Severity Reaction Status Date / Time codeine Allergy Intermediate TACHYCARDIA Verified 07/11/24 14:50 nitrofurantoin [Macrobid] Allergy Unknown confusion Verified 07/11/24 14:50 pravastatin Allergy Unknown Unknown Verified 07/11/24 14:50 rosuvastatin [Crestor] Allergy Unknown Unknown Verified 07/11/24 14:50 Sulfa (Sulfonamide Allergy Unknown unknown Verified 07/11/24 14:50 Antibiotics) sulfamethoxazole Allergy Unknown Unknown Verified 07/11/24 14:50 [From Bactrim] trimethoprim [From Bactrim] Allergy Unknown Unknown Verified 07/11/24 14:50 amlodipine AdvReac Intermediate leg Verified 07/11/24 14:50 swelling digoxin AdvReac Intermediate Confusion Verified 07/11/24 14:50 Review of Systems 2 Review of Systems: Yes Unobtainable due to mental status PMFSH Past Medical History Medical History Urinary tract infection with fever Persistent atrial fibrillation Left thigh pain Abdominal mass, LUQ (left upper quadrant) Iliotibial band syndrome of left side UTI (urinary tract infection) Herpes zoster Orthostatic hypotension Acute hyponatremia Weakness COVID-19 Breast asymmetry Atrial fibrillation with rapid ventricular response Hyperkalemia Essential hypertension Atherosclerotic cardiovascular disease Chronic heart failure with preserved ejection fraction (HFpEF) Iliotibial band syndrome of right side Disc degeneration, lumbar Cognitive dysfunction 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 Atrial fibrillation Osteopenia Hypothyroid Spinal stenosis of lumbar region Degenerative disc disease, lumbar Type 2 diabetes mellitus with hyperglycemia Surgical History History of removal of cyst History of appendectomy History of eye surgery History of cataract surgery History of cholecystectomy History of section History of knee replacement History of hip replacement Family History Family History Father CVD (cardiovascular disease) Mother CVD (cardiovascular disease) Stroke Social History Social History Household Members: None Household Members Other:: son comes 3 days a week, daughter lives 5 minutes away visits frequently Housing: House Do you presently have visiting nurse or other home services: No Alcohol intake: never Comment: post cardioversion Patient Tobacco Use Status: Former Tobacco user Tobacco use type: Cigarette Years Smoked: <1 e-Cigarette/Vaping Use: Former Use Second Hand Smoke Exposure: No Advance Directives: Yes Advance Directives on File: Yes Advance Directives Date on File: 08/29/21 service: No Current occupational status: retired Cognitive needs: Yes (Walker) Hearing needs: No Vision needs: Yes Physical Exam ED Vital Signs: Vital Signs - 24 hr 07/11/24 14:44 07/11/24 16:52 Temperature 98.8 F 98.3 F Pulse Rate 70 70 Respiratory Rate 22 H 19 Blood Pressure 127/76 160/68 H Pulse Oximetry 93 98 Oxygen Delivery Method Nasal Cannula Nasal Cannula Oxygen Flow Rate 2 1 BMI result Body Mass Index 31.2 Const Other: The patient is a chronically ill-appearing 88-year-old woman who has a diminished level of alertness. Opens her eyes with very loud verbal stimuli and tries to answer questions but is not very coherent. HENMT Other: Face is symmetrical. Mucous membranes moist. Eyes Other: Pupils are small and equal. They are not pinpoint. Extraocular movements seem intact. Conjunctivae clear. Neck Other: The patient has a thick neck. Hard to evaluate for JVD. Resp Other: The patient has crackles at the bases. There is a slight increased respiratory effort Cardio Other: the patient has an irregular rate and rhythm with no definite murmur. GI Other: The abdomen is soft and does not seem focally tender. Skin Other: Skin is pale and dry. Neuro Other: The patient was somnolent but arousable with loud verbal stimuli. When aroused she would open her eyes an attempt to speak but her speech content was diminished. No obvious facial asymmetry. Tone seems symmetrical. No obvious lateralizing findings. Extrem Other: The patient's legs are puffy but not with pitting edema. Medical Decision Making Medical Decision Making [facility] Narrative: The patient is an 88-year-old woman who has chronic atrial fibrillation on anticoagulation who also has a history of congestive heart failure and who lives at a correction. She arrives with some worsening oxygen saturations and a diminished level of alertness. My 1st impression was that she probably had mental status changes secondary to hypercarbia. her daughter describes the patient having less furosemide over the last several days and so worsening congestive heart failure is also a diagnostic possibility. however it really was not clear initially what the etiology of her worsening symptoms were. She was not febrile. She was not tachycardic. She was not hypotensive. as part of her workup for her mental status changes I obtained a CT of the head. Additionally I ordered a CT of the chest (without contrast because of her renal function) because her chest x-ray, which has been read as showing pulmonary edema looked symmetric to me and I was concerned about the possibility of a pneumonia as a possible etiology of her symptoms. The CT reading was available at 17:45. I have ordered ceftriaxone and doxycycline. blood cultures were ordered. The patient's lactic acid is normal. The patient's renal function shows a creatinine of 1.38 and a BUN of 4.6. the patient is last most recent creatinine was 1.8. The patient's bilirubin is normal. The patient's white blood count is mildly elevated at 13.6. Platelet count is normal. My overall impression is and the patient is having some degree of a metabolic encephalopathy, possibly from a pneumonia. Whether congestive heart failure is also contributing to her condition is possible. Her BNP today is 541. This is not far from her baseline. Hospitalized because of her decreased level of alertness and a new oxygen requirement. Lab Data 07/11/24 15:18 07/11/24 15:18 Labs: Lab Results 07/11/24 07/11/24 07/11/24 Range/Units 14:59 15:18 15:24 WBC 13.6 H (4.8-10.8) X10*3/uL RBC 3.15 L (4.20-5.50) X10*6/uL Hgb 10.1 L (12.0-16.0) g/dl Hct 31.6 L (37.0-47.0) % MCV 100.3 H (80.0-98.0) fL MCH 32.1 (27.0-33.0) pg MCHC 32.0 (31.0-35.0) g/dl RDW 18.1 H (11.0-16.0) % Plt Count 264 (160-400) X10*3/uL MPV 10.5 (9.4-12.3) fL Immature Gran % (Auto) 0.7 H (0.0-0.4) % Neut % (Auto) 85.3 H (45-73) % Lymph % (Auto) 6.0 L (20-40) % Lipscomb % (Auto) 7.4 (2-11) % Eos % (Auto) 0.2 (0-4) % Baso % (Auto) 0.4 (0-2) % Lymph # (Auto) 0.8 L (1.2-4.9) X10*3/uL Lipscomb # (Auto) 1.0 (0.1-1.2) X10*3/uL Eos # (Auto) 0.0 (0.0-0.4) X10*3/uL Baso # (Auto) 0.1 (0.0-0.2) X10*3/uL Abs Immat Gran (auto) 0.10 H (0.00-0.03) X10*3/uL Absolute Neuts (auto) 11.6 H (2.0-8.3) x10*3/uL Absolute Nucleated RBC 0.000 (0.0-0.012) X10*3/uL Nucleated RBC % (auto) 0.0 (0.0-0.2) /100WBC VBG pH 7.40 (7.32-7.43) VBG pCO2 43 mmHg VBG pO2 39 mmHg VBG HCO3 27 H (22-26) mmol/L VBG O2 Saturation 60.0 % VBG Base Excess 2.5 mmol/L Sodium 139 (135-145) mmol/L Potassium 4.4 (3.3-5.1) mmol/L Chloride 106 (96-108) mmol/L Carbon Dioxide 25 (22-29) mmol/L Anion Gap 12 (12-20) BUN 46 H (9-16) mg/dL Creatinine 1.38 (0.5-1.4) mg/dL Estim Creat Clear Calc 25.5 Estimated GFR 36 POC Glucose 141 H (60-115) mg/dL Random Glucose 151 H (60-115) mg/dL Lactic Acid (0.5-2.0) mmol/L Calcium 9.0 (8.4-10.2) mg/dL Magnesium 2.5 (1.6-2.6) mg/dL Total Bilirubin 0.6 (0.0-1.0) mg/dL Direct Bilirubin 0.3 (0.0-0.5) mg/dL AST 235 H (5-31) U/L ALT 208 H (0-31) U/L Alkaline Phosphatase 224 H (39-117) U/L Troponin I High Sens 8.4 D (<3.5-17.0) ng/L C-Reactive Protein 3.48 H (< or = 0.50) mg/dL B-Natriuretic Peptide 541 H (<100) pg/mL Total Protein 6.8 (6.5-8.0) g/dL Albumin 3.7 (3.5-5.0) g/dL Ethyl Alcohol < 10 mg/dL Influenza Type A (PCR) NEGATIVE (Negative) Influenza Type B (PCR) NEGATIVE (Negative) RSV RNA Qual (PCR) NEGATIVE (Negative) SARS-CoV-2 RNA (RT-PCR) NEGATIVE (Negative) 07/11/24 Range/Units 16:59 WBC (4.8-10.8) X10*3/uL RBC (4.20-5.50) X10*6/uL Hgb (12.0-16.0) g/dl Hct (37.0-47.0) % MCV (80.0-98.0) fL MCH (27.0-33.0) pg MCHC (31.0-35.0) g/dl RDW (11.0-16.0) % Plt Count (160-400) X10*3/uL MPV (9.4-12.3) fL Immature Gran % (Auto) (0.0-0.4) % Neut % (Auto) (45-73) % Lymph % (Auto) (20-40) % Lipscomb % (Auto) (2-11) % Eos % (Auto) (0-4) % Baso % (Auto) (0-2) % Lymph # (Auto) (1.2-4.9) X10*3/uL Lipscomb # (Auto) (0.1-1.2) X10*3/uL Eos # (Auto) (0.0-0.4) X10*3/uL Baso # (Auto) (0.0-0.2) X10*3/uL Abs Immat Gran (auto) (0.00-0.03) X10*3/uL Absolute Neuts (auto) (2.0-8.3) x10*3/uL Absolute Nucleated RBC (0.0-0.012) X10*3/uL Nucleated RBC % (auto) (0.0-0.2) /100WBC VBG pH (7.32-7.43) VBG pCO2 mmHg VBG pO2 mmHg VBG HCO3 (22-26) mmol/L VBG O2 Saturation % VBG Base Excess mmol/L Sodium (135-145) mmol/L Potassium (3.3-5.1) mmol/L Chloride (96-108) mmol/L Carbon Dioxide (22-29) mmol/L Anion Gap (12-20) BUN (9-16) mg/dL Creatinine (0.5-1.4) mg/dL Estim Creat Clear Calc Estimated GFR POC Glucose (60-115) mg/dL Random Glucose (60-115) mg/dL Lactic Acid 1.2 (0.5-2.0) mmol/L Calcium (8.4-10.2) mg/dL Magnesium (1.6-2.6) mg/dL Total Bilirubin (0.0-1.0) mg/dL Direct Bilirubin (0.0-0.5) mg/dL AST (5-31) U/L ALT (0-31) U/L Alkaline Phosphatase (39-117) U/L Troponin I High Sens (<3.5-17.0) ng/L C-Reactive Protein (< or = 0.50) mg/dL B-Natriuretic Peptide (<100) pg/mL Total Protein (6.5-8.0) g/dL Albumin (3.5-5.0) g/dL Ethyl Alcohol mg/dL Influenza Type A (PCR) (Negative) Influenza Type B (PCR) (Negative) RSV RNA Qual (PCR) (Negative) SARS-CoV-2 RNA (RT-PCR) (Negative) Critical Care Time Critical Care Time Critical Care Time: Yes Total Critical Care Time: 35 Attestation: The patient was critically ill with a high probability of imminent or life- threatening deterioration. I spent greater than 30 minutes of discontinuous time evaluating the patient, delivering critical care at the bedside, discussing evaluating data with consultants. Critical care time does not include time spent performing separately billable procedures or teaching. Time spent performing critical care with 35 minutes. Discharge Plan Discharge Patient Disposition: Admitted As Inpatient Prescriptions: No Action cholecalciferol (vitamin D3) 25 mcg (1,000 unit) capsule 25 mcg PO DAILY (DME) FreeStyle Madeline 14 Day Sensor Kit See Rx Instructions .ROUTE .MEDSUPPLY Qty: 1 6RF Rx Instructions: Dx: E11.65 As directed, 14 days (DME) FreeStyle Madeline 14 Day Sensor Kit See Rx Instructions .Route Qty: 6 3RF Rx Instructions: As directed metoprolol succinate 100 mg tablet extended release 24 hr 100 mg PO DAILY 90 Days Qty: 90 3RF amiodarone 200 mg tablet 200 mg PO DAILY 90 Days Qty: 90 2RF levothyroxine 125 mcg tablet 125 mcg PO DAILY@0600 Qty: 90 3RF lactulose 10 gram/15 mL solution 30 ml PO DAILY PRN (Reason: for constipation) Qty: 946 0RF simvastatin 10 mg tablet 10 mg PO BEDTIME Qty: 90 0RF travoprost 0.004 % drops 1 drp ophthalmic (eye) BEDTIME acetaminophen 500 mg Tablet 1,000 mg PO TID PRN (Reason: Pain) glycerin (adult) Suppository 1 supp TN DAILY PRN (Reason: Constipation) insulin glargine U-300 conc [Toujeo SoloStar U-300 Insulin] 300 unit/mL (1.5 mL) insulin pen 12 unit subcut DAILY Rx Instructions: or as directed insulin lispro [Humalog KwikPen Insulin] 100 unit/mL insulin pen 1 sliding scale dose subcut TIDAC Protocol: Insulin Correction Scale Less than or equal to 110 ---- Give (units): 0 111 to 150 Give (units): 0 151 to 200 Give (units): 2 201 to 250 Give (units): 4 251 to 300 Give (units): 6 301 to 350 Give (units): 8 Greater than 350 Give (units): 10 Call MD if Blood Glucose > : 350 furosemide 40 mg tablet 20 mg PO DAILY calcitriol 0.25 mcg capsule 0.25 mcg PO Q48H Xarelto 15 mg tablet 15 mg PO DAILY@1700 metoprolol succinate 25 mg tablet extended release 24 hr 25 mg PO BEDTIME PRN (Reason: high BP ) (DME) pen needle, diabetic [BD Eveline 2nd Gen Pen Needle] 32 gauge x 5/32 needle See Rx Instructions .ROUTE .COMPLEX Qty: 400 3RF Dose Instruction: USEN TO INJECT INSULIN FOUR TIMES DAILY Rx Instructions: USEN TO INJECT INSULIN FOUR TIMES DAILY gabapentin 300 mg capsule 100 mg PO BID tramadol 50 mg tablet 50 mg PO DAILY PRN (Reason: pain) melatonin 5 mg capsule PO .8 pm PRN (Reason: insomnia) dextrose [Dex4 Glucose] 15 gram/33 gram gel in packet PO Print Language: Lebanese
--- NOTE | 2024-07-11 14:59 | ECG_ITS ---
Test Reason : weakness Blood Pressure : */* mmHG Vent. Rate : 64 BPM Atrial Rate : * BPM P-R Int : * ms QRS Dur : 106 ms QT Int : 472 ms P-R-T Axes : * -43 20 degrees QTcB Int : 486 ms Atrial fibrillation Left axis deviation Minimal voltage criteria for LVH, may be normal variant ( Riley product ) Inferior infarct (cited on or before 14-Jun-2024) Possible Anterior infarct , age undetermined Abnormal ECG When compared with ECG of 14-Jun-2024 22:10, No significant changes seen Referred By: Jai Albert Electronically Signed By: MAGI HIGHTOWER
[2024-07-11 15:03] LABS: Glucose, Whole Blood 141 mg/dL (60-115)
[2024-07-11 15:23] LABS: MANUAL DIFF FLAG NO
[2024-07-11 15:26] LABS: Basophils Absolute Auto 0.1 X10*3/uL (0.0-0.2); Basophils Percent Auto 0.4 % (0-2); Eosinophils Percent Auto 0.2 % (0-4); Hematocrit 31.6 % (37.0-47.0); Hemoglobin 10.1 g/dl (12.0-16.0); Imm Gran Pct Auto 0.7 % (0.0-0.4); Lymphocytes Absolute Auto 0.8 X10*3/uL (1.2-4.9); Mean Corpuscular Hemoglobin 32.1 pg (27.0-33.0); Mean Corpuscular Volume 100.3 fL (80.0-98.0); Mean Platelet Volume 10.5 fL (9.4-12.3); Monocytes Percent Auto 7.4 % (2-11); Neutrophils Absolute Auto 11.6 x10*3/uL (2.0-8.3); Neutrophils Percent Auto 85.3 % (45-73); Platelet Count 264 X10*3/uL (160-400); Red Blood Count 3.15 X10*6/uL (4.20-5.50); Red Cell Distribution Width 18.1 % (11.0-16.0); White Blood Count 13.6 X10*3/uL (4.8-10.8)
[2024-07-11 15:30] LABS: VBG Base Excess 2.5 mmol/L; VBG HCO3 27 mmol/L (22-26); VBG pCO2 43 mmHg; VBG pO2 39 mmHg
[2024-07-11 15:36] LABS: Venous Blood Gas Refer to POC result
[2024-07-11 15:46] LABS: B Type Natriuretic Peptide 541 pg/mL (<100)
[2024-07-11 15:47] LABS: Troponin-I High Sensitivity 8.4 ng/L (<3.5-17.0)
[2024-07-11 15:49] LABS: Alanine Aminotransferase 208 U/L (0-31); Albumin Level 3.7 g/dL (3.5-5.0); Anion Gap 12 (12-20); Aspartate Amino Transferase 235 U/L (5-31); Bilirubin Direct 0.3 mg/dL (0.0-0.5); Blood Urea Nitrogen 46 mg/dL (9-16); C Reactive Protein 3.48 mg/dL (< or = 0.50); Carbon Dioxide 25 mmol/L (22-29); Chloride 106 mmol/L (96-108); Creatinine Clr Calc Pharmacy 25.5; Estimated Glomerular Filt Rate 36; Ethanol < 10 mg/dL; Glucose Random 151 mg/dL (60-115); Magnesium 2.5 mg/dL (1.6-2.6); Potassium 4.4 mmol/L (3.3-5.1); Sodium 139 mmol/L (135-145); Total Protein 6.8 g/dL (6.5-8.0)
[2024-07-11 15:55] LABS: Alkaline Phosphatase 224 U/L (39-117); Bilirubin Total 0.6 mg/dL (0.0-1.0)
[2024-07-11 16:04] LABS: Influenza A PCR NEGATIVE (Negative); Influenza B PCR NEGATIVE (Negative); Resp Syncy Virus RNA Qual PCR NEGATIVE (Negative); SARS COV2 PCR INHOUSE NEGATIVE (Negative)
--- OUTSIDE RECORDS SUMMARY | 2024-07-11 16:27 | XMS_ITS | Encounter Summary ---
Author Organization [facility] Address [address] [place] [address] Care Team Providers Care Specialty Transformer Assembler Name Role Phone Torrey Kwok MD Primary Care Provider [phone] Encounter Details Date Type Department Care Team (Late st Contact Info) Description 04/29/2024 Lab Requisition [facility] - Main Lab [address] [facility] [place] [address] Torrey Kwok MD [address] [place] [address] Dysuria Social History Tobacco Use Types Packs/Day [...] Escherichia coli(A) ANDRE 05/01/2024 11:04 AM EST [facility] Urine Urine specimen [...] MICROBIOLOGY - GENERAL ORDER GENET Final Result [facility] [address] [place] [address], * Frost urine culture tube (04/28/2024 12:15 PM EST) Extra Tube Hold for add-ons. 04/29/2024 11:01 AM EST [facility] Comment:Auto resulted. Urine Urine specimen obtained by clean catch procedure / Unknown 04/28/2024 12:15 PM EST 04/29/2024 9:53 AM EST us Torrey Kwok MD LAB URINE ORDERABLES Final Resul t [facility] [address] [place] [address], * (ABNORMAL) Urinalysis with reflex microscopic and culture (04/28/2024 12:15 PM EST) Specific [place] Urine 1.021 1.003 - 1.030 LAB URINALYSIS - AUTOMATED METHOD 04/29/2024 11:05 AM [facility] pH, Urine 5.5 5.0 - 8.0 pH LAB URINALYSIS - AUTOMATED METHOD 04/29/2024 11:05 AM [facility] Leukocytes, Urine Trace(A) Negative LAB URINALYSIS - AUTOMATED METHOD 04/29/2024 11:05 AM [facility] Nitrite, Urine Negative Negative LAB URINALYSIS - AUTOMATED METHOD 04/29/2024 11:05 AM [facility] Protein, Urine Trace <=Trace mg/dL LAB URINALYSIS - AUTOMATED METHOD 04/29/2024 11:05 AM [facility] Glucose, Urine >=1000(A) Negative mg/dL LAB URINALYSIS - AUTOMATED METHOD 04/29/2024 11:05 AM [facility] Ketones, Urine 15(A) Negative mg/dL LAB URINALYSIS - AUTOMATED METHOD 04/29/2024 11:05 AM [facility] Urobilinogen , Urine 0.2 0.2 - 1.0 mg/dL LAB URINALYSIS - AUTOMATED METHOD 04/29/2024 11:05 AM [facility] Bilirubin, Urine Negative Negative LAB URINALYSIS - AUTOMATED METHOD 04/29/2024 11:05 AM [facility] Blood, Urine Negative Negative LAB URINALYSIS - AUTOMATED METHOD 04/29/2024 11:05 AM [facility] RBC, Urine 0.8 0 - 4 /HPF LAB URINALYSIS - AUTOMATED METHOD 04/29/2024 11:05 AM [facility] WBC, Urine 12.6(H) 0 - 4 /HPF LAB URINALYSIS - AUTOMATED METHOD 04/29/2024 11:05 AM [facility] Squamous Epithelial, Urine 10 0 - 60 /LPF LAB URINALYSIS - AUTOMATED METHOD 04/29/2024 11:05 AM [facility] Bacteria, Urine Many(A) Negative /HPF LAB URINALYSIS - AUTOMATED METHOD 04/29/2024 11:05 AM [facility] Hyaline Casts, Urine 0.4 0 - 3 /LPF LAB URINALYSIS - AUTOMATED METHOD 04/29/2024 11:05 AM [facility] Urine Urine specimen from urinary conduit / Unknown Non-blood Collection / Unknown 04/28/2024 12:15 PM EST 04/29/2024 9:53 AM EST us Torrey Kwok MD LAB URINE ORDERABLES Final Resul t [facility] [address] [place] [address], documented in this encounter Visit Diagnoses Diagnosis Dysuria documented in this encounter Care Teams Specialty Transformer Assembler Relationship Specialty Start Date End Date Torrey Kwok MD [address] [place] [address] [address] [place] [address] PCP - General Geriatric Medicine 04/25/24 documented as of this encounter
--- OUTSIDE RECORDS SUMMARY | 2024-07-11 16:28 | XMS_ITS | Clinical Summary ---
Author Organization [facility] Address [address] [facility] [address] [place] [address] Phone Care Team Providers Care Marshmallow Machine Operator Name Role Phone Monique White MD Primary Care Provider [phone] Allergies Active Allergy Reactions Criticality Noted Date [...] PT (per her report last PT at [facility] in July-August 2020). I have encouraged [...] Care Team (Late st Contact Info) Description 08/14/2024 2:30 PM EDT Office Visit [facility] [address] [place] [address] Tu Oliva MD [address] [facility] [address] [place] [id number] Health Maintenance Due Date Last Done Comments Pneumococcal Vaccine: 65+ Years (1 of 2 - PCV) 1941 Diabetes: Ophthalmology Exam 05/09/2020 Diabetes: Pedal Pulse Checked 05/09/2020 Diabetes: Sensory Foot Exam 05/09/2020 Diabetes: Visual Foot Exam 05/09/2020 Diabetes: Hemoglobin A1C 07/24/2024 04/25/2024 Influenza Vaccine (Season Ended) 2024 01/31/2021, 01/28/2019, 01/07/2018, Additional history exists Hepatitis B Vaccine Aged Out No longe r eligible based on patient's age to complete this topic Insurance [facility] MEDICARE [facility] MEDICARE Care Teams Marshmallow Machine Operator Relationship Specialty Start Date End Date Monique White MD [facility] [place] [address] [place], [place] PCP - General Internal Medicine 03/11/21
--- OUTSIDE RECORDS SUMMARY | 2024-07-11 16:28 | XMS_ITS | Patient Health Record ---
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 Name Role Phone Monique White Primary Care Provider Arturo Brown Unavailable [phone] Allergies Allergen (clinical drug ingredient) Drug/Non Drug [...] Problem Acquired hammer toe of right foot (9562410872256034 ) Other hammer toe(s) (acquired), right foot (M20.41) Active confirmed Problem Acquired hammer toe of left foot (3024083019060661 ) Other hammer toe(s) (acquired), left foot (M20.42) Active confirmed Problem Polyneuropathy due to diabetes mellitus type I (906074920) Type 1 diabetes mellitus with diabetic polyneuropathy (E10.42) Active confirmed Vital Signs Blood pressure diastolic 84 mm Hg 12/04/2023 Height 4 ft 10 in in 02/05/2024 Blood pressure systolic 128 mm Hg 12/04/2023 Weight 129 lbs 02/05/2024 BMI 26.96 kg/m2 02/05/2024 Procedures Procedure Date Ordered Date Performed Result Body Sit e 14850-RZOFWAB NAIL, 6 OR MORE 09/21/2023 N/A 78460-Oejxuchb Plate 09/21/2023 N/A 23603-PTEZ SKIN LESIONS, 2 TO 4 09/21/2023 N/A 84387-KVQQMRK NAIL, 6 OR MORE 12/04/2023 N/A 92959-JEQD SKIN LESIONS, 2 TO 4 12/04/2023 N/A 00572-MCEDUGS NAIL, 6 OR MORE 02/05/2024 N/A 28872-WAQD SKIN LESIONS, 2 TO 4 02/05/2024 N/A Encounters Encounter Location Date Provider Diagnosis [facility] [address] [place] [address] 09/21/2023 Arturo Simon Type 1 diabetes mellitus with diabetic polyneuropathy E10.42 ; Tinea unguium B35.1 and Ingrown nail L60.[address] [address] 12/04/2023 Arturo Simon Type 1 diabetes mellitus with diabetic polyneuropathy E10.42 and Tinea unguium B35.[address] [address] 02/05/2024 Arturo Simon Type 1 diabetes mellitus with diabetic polyneuropathy E10.42 ; Onychomycosis B35.1 ; Other hammer toe(s) (acquired), right foot M20.41 and Other hammer toe(s) (acquired), left foot M20.[address] [address] 08/01/2023 Arturo Simon [address] [address] 05/05/2024 Arturo Simon Assessments Encounter Date Diagnosis (ICD Code) Assessment Notes Treatment Notes Treatment Clinical Notes Section Notes 09/21/2023 Type 1 diabetes mellitus with diabetic [...] pdf) 09/21/2023 Ingrown nail (ICD-10 - L60.0) 02/05/2024 Other hammer toe(s) (acquired), left foot (ICD-10 - M20.42) Plan Of Treatment Pending Test Test Name Order Date Hemoglobin A1c 06/23/2014 Hemoglobin A1c 01/05/2015 Glucose Fasting 06/23/2014 X ray : Foot, right 3V 06/28/2023 59454-WXTGQBJ NAIL, 6 OR MORE 05/22/2023 03523-CMCAVGB NAIL, 6 OR MORE 12/12/2022 50723-KCETASM NAIL, 6 OR MORE 03/06/2023 62127-RPRGCEW NAIL, 6 OR MORE 01/10/2022 20392-SEEPNUW NAIL, 6 OR MORE 04/18/2022 00185-QAUMJUW NAIL, 6 OR MORE 07/11/2022 27815-OGCZMFK NAIL, 6 OR MORE 10/03/2022 63864-YCDWNLV NAIL, 6 OR MORE 09/21/2023 13441-CPSBGVR NAIL, 6 OR MORE 12/04/2023 55711-QXOOXWH NAIL, 6 OR MORE 02/05/2024 38139-TEWYHRX NAIL, 6 OR MORE 07/10/2017 63030-YBKWALX NAIL, 6 OR MORE 10/09/2017 35448-LDGLAOL NAIL, 6 OR MORE 01/08/2018 55547-QRCXYNI NAIL, 6 OR MORE 04/30/2018 00684-GRYQKEB NAIL, 6 OR MORE 07/30/2018 34492-IUXFXKY NAIL, 6 OR MORE 10/29/2018 59097-XTYBDPM NAIL, 6 OR MORE 02/04/2019 34091-UEADJBT NAIL, 6 OR MORE 05/13/2019 46703-SWDDRCC NAIL, 6 OR MORE 08/12/2019 75516-CBQJSNC NAIL, 6 OR MORE 11/11/2019 35339-ZXMOMNE NAIL, 6 OR MORE 02/17/2020 28621-VITXQUB NAIL, 6 OR MORE 05/25/2020 93128-OGYBUNU NAIL, 6 OR MORE 08/24/2020 20792-XLEAOTW NAIL, 6 OR MORE 11/23/2020 35663-QETIMKN NAIL, 6 OR MORE 02/22/2021 12150-IZRISQV NAIL, 6 OR MORE 05/24/2021 65462-SXMRJGT NAIL, 6 OR MORE 10/11/2021 29069-HLTAYOS NAIL, 6 OR MORE 10/06/2014 32056-YJZYBXQ NAIL, 6 OR MORE 06/10/2013 89450-SHZZILW NAIL, 6 OR MORE 03/17/2014 50053-XKBVQTM NAIL, 6 OR MORE 06/23/2014 42740-PSMNXCY NAIL, 6 OR MORE 01/05/2015 79378-ACSJLRO NAIL, 6 OR MORE 04/20/2015 34996-CHPDGNY NAIL, 6 OR MORE 07/20/2015 00605-JORYISH NAIL, 6 OR MORE 10/26/2015 86611-IJXRZQJ NAIL, 6 OR MORE 01/25/2016 85378-FMRJPOH NAIL, 6 OR MORE 05/23/2016 85713-HYNBCUI NAIL, 6 OR MORE 08/25/2016 85664-OQMLEEX NAIL, 6 OR MORE 12/05/2016 68245-FAHHCAA NAIL, 6 OR MORE 03/06/2017 48517-XKQMYHI NAIL, 6 OR MORE 12/27/2010 25570-POGZMVU NAIL, 6 OR MORE 03/21/2011 10010-LWSSECB NAIL, 6 OR MORE 06/13/2011 87037-MNJKVCC NAIL, 6 OR MORE 09/12/2011 00467-VBIZIIZ NAIL, 6 OR MORE 12/19/2011 31060-VDJIRIL NAIL, 6 OR MORE 03/05/2012 43086-NYUMCWT NAIL, 6 OR MORE 05/31/2012 02030-UKLGBFO NAIL, 6 OR MORE 08/27/2012 40776-HZCDGSA NAIL, 6 OR MORE 12/10/2012 04979-NOSYCIK NAIL, 6 OR MORE 03/11/2013 10668-DQQVARU NAIL, 6 OR MORE 09/16/2013 98691-VSATOEM NAIL, 6 OR MORE 01/06/2014 87154-Buepzewz Plate 01/06/2014 96557-Xpgaajwh Plate 09/16/2013 25210-Ynunlnue Plate 05/31/2012 04265-Njiiobsv Plate 06/13/2011 85812-Uaycwluz Plate 03/21/2011 25145-Nbrsqnoj Plate 12/05/2016 30431-Mflqtjcc Plate 07/10/2017 80361-Hsngvfsp Plate 07/20/2015 64928-Irzveyxf Plate 01/05/2015 06516-Tjlxtfkl Plate 08/27/2012 83558-Uclxslwg Plate 03/17/2014 40218-Qacictcl Plate 10/06/2014 57763-Wtlclnbc Plate 09/21/2023 54806-Txcpfmff Plate Each Additional 98248-Chugojgu Plate Each Additional 01/2014 83550-Fyrnxvng Plate Each Additional 08236 I&D ABSCESS- SIMPLE,SINGLE 012 38785 I&D ABSCESS- SIMPLE,SINGLE 011 47576 I&D ABSCESS- SIMPLE,SINGLE 021 87756-QVQQ SKIN LESIONS, 2 TO 4 09/21/19 74021-NKVZ SKIN LESIONS, 2 TO 4 02/05/20 89275-IFUQ SKIN LESIONS, 2 TO 4 12/04/19 12495-HTFK SKIN LESIONS, 2 TO 4 10/04/19 07108-IHTW SKIN LESIONS, 2 TO 4 07/12/19 95424-LXSR SKIN LESIONS, 2 TO 4 04/18/19 80833-SGSC SKIN LESIONS, 2 TO 4 01/11/20 61328-WUKM SKIN LESIONS, 2 TO 4 03/06/20 62735-HFES SKIN LESIONS, 2 TO 4 12/13/19 16055-DMXL SKIN LESIONS, 2 TO 4 05/22/19 24 22108-SBIF SKIN LESIONS, 2 TO 4 10/12/19 44966-TUGX SKIN LESIONS, 2 TO 4 05/24/19 65980-CMVP SKIN LESIONS, 2 TO 4 02/23/20 21 64307-OTWF SKIN LESIONS, 2 TO 4 11/24/19 47086-IYRO SKIN LESIONS, 2 TO 4 08/25/19 96215-XUAA SKIN LESIONS, 2 TO 4 05/25/19 00568-VOBO SKIN LESIONS, 2 TO 4 02/17/20 78894-YPNG SKIN LESIONS, 2 TO 4 11/11/19 74696-NUIA SKIN LESIONS, 2 TO 4 08/12/19 00561-WGLF SKIN LESIONS, 2 TO 4 05/13/19 03114-TQBS SKIN LESIONS, 2 TO 4 02/05/20 86298-XYNS SKIN LESIONS, 2 TO 4 10/30/19 09573-KFOU SKIN LESIONS, 2 TO 4 07/31/19 39040-OUCX SKIN LESIONS, 2 TO 4 04/30/19 89422-MIIJ SKIN LESIONS, 2 TO 4 01/09/20 18 72282-WOKY SKIN LESIONS, 2 TO 4 10/10/19 18 06554-WQIX SKIN LESIONS, 2 TO 4 05/31/19 13 33903-SCFF SKIN LESIONS, 2 TO 4 03/05/20 12 22741-LQDT SKIN LESIONS, 2 TO 4 12/19/19 12 98893-XNSQ SKIN LESIONS, 2 TO 4 08/28/19 13 81735-UHAR SKIN LESIONS, 2 TO 4 03/11/20 13 49611-NVYV SKIN LESIONS, 2 TO 4 12/11/19 13 80246-QDCE SKIN LESIONS, 2 TO 4 01/07/20 14 75265-CUTC SKIN LESIONS, 2 TO 4 09/17/19 14 52577-FQNN SKIN LESIONS, 2 TO 4 04/20/19 16 03063-RZBM SKIN LESIONS, 2 TO 4 01/06/20 15 17006-BJHR SKIN LESIONS, 2 TO 4 06/24/19 15 65762-NEDD SKIN LESIONS, 2 TO 4 10/07/19 15 94754-GOOB SKIN LESIONS, 2 TO 4 03/17/20 14 36525-ASOL SKIN LESIONS, 2 TO 4 06/11/19 14 48185-BSVF SKIN LESIONS, 2 TO 4 07/20/19 16 77950-IMZJ SKIN LESIONS, 2 TO 4 10/26/19 16 01367-DPMD SKIN LESIONS, 2 TO 4 05/23/19 17 83058-NUCF SKIN LESIONS, 2 TO 4 08/26/19 17 77842-CEUJ SKIN LESIONS, 2 TO 4 01/25/20 16 23306-ZVEL SKIN LESIONS, 2 TO 4 07/11/19 18 70622-ZQAD SKIN LESIONS, 2 TO 4 03/06/20 17 50494-TPOI SKIN LESIONS, 2 TO 4 12/06/19 17 26430-GUOG SKIN LESION 09/12/2011 56394-COAT SKIN LESION 03/21/2011 84363-QMDH SKIN LESION 06/13/2011 60578-Ymlbrbbwj, Toes 06/28/2023 Next Appt Details Provider Name:Arturo Ismael VanceAlfred , 08/15/2024 10:15:00 AM, [address] [place], [address], Insurance Providers Payer Name Payer Address Payer Phone Subscriber Number Group Number Insured Name Patient Relationship to Insured Coverage Start Date Coverage End Date Medicare National Govt [facility] [address] [place] [address] [id number] Gerri Sanchez Self - patient is the insured 2 [employer] [address] [place] [address] [id number] Gerri Sanchez Self - patient is [...] Hospitalization History Reason Date(Month/Year) [facility]- UTI 11/16/23 [facility]: A-fib 12/2015 [facility] / for medication 6 [facility] cath put in 04/2015
--- OUTSIDE RECORDS SUMMARY | 2024-07-11 16:28 | XMS_ITS | Clinical Summary ---
Author Organization [address] Address [address] [place] [phone] Phone Care Team Providers Care Floor Scraper Name Role Phone Torrey Kwok MD Primary Care Provider [phone] Encounters Date Type Department Care Team Description 07/11/2024 Lab Requisition [facility] [address] [place] [phone] Torrey Kwok MD Chronic kidney disease, stage 3 unspecified (CMS/HCC) 07/05/2024 Lab Requisition [facility] [address] [place] [phone] Torrey Kwok MD Type 2 diabetes mellitus with diabetic chronic kidney disease (CMS/HCC); Essential (primary) hypertension; Heart failure, unspecified (CMS/HCC); 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) 07/03/2024 Lab Requisition [facility] [address] [place] [phone] Torrey Kwok MD Chronic kidney disease, stage 3 unspecified (CMS/HCC); Type 2 diabetes mellitus with hyperglycemia (CMS/HCC) 06/28/2024 Lab Requisition [facility] [address] [place] [phone] Torrey Kwok MD Type 2 diabetes mellitus with diabetic chronic kidney disease (CMS/HCC); Essential (primary) hypertension; Heart failure, unspecified (CMS/HCC); 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) 06/21/2024 Lab Requisition [facility] [address] [place] [phone] Torrey Kwok MD Type 2 diabetes mellitus with diabetic chronic kidney disease ([facility]/HCC); Essential (primary) hypertension; Heart failure, unspecified (CMS/HCC) 06/20/2024 Lab Requisition [facility] Lab [address] [place] [phone] Torrey Kwok MD Essential (primary) hypertension; Type 2 diabetes mellitus without complications (CMS/HCC) 06/14/2024 Lab Requisition [facility] Lab [address] [place] [phone] Torrey Kwok MD Type 2 diabetes mellitus with diabetic chronic kidney disease ([facility]/HCC); Essential (primary) hypertension; Heart failure, unspecified (CMS/HCC); 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 ([facility]/HCC) 06/07/2024 Lab Requisition [facility] Lab [address] [place] [phone] Torrey Kwok MD Type 2 diabetes mellitus with diabetic chronic kidney disease ([facility]/HCC); Essential (primary) hypertension; Heart failure, unspecified (CMS/HCC); 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 ([facility]/HCC) 06/07/2024 Lab Requisition [facility] [address] [place] [phone] Torrey Kwok MD Heart failure, unspecified ([facility]/HCC); Type 2 diabetes mellitus with diabetic chronic kidney disease ([facility]/HCC); Chronic kidney disease, stage 3 unspecified ([facility]/HCC); Vitamin D deficiency, unspecified; Essential (primary) hypertension 06/02/2024 Lab Requisition [facility] Lab [address] [place] [phone] Torrey Kwok MD Chronic diastolic (congestive) heart failure (CMS/HCC); Chronic kidney disease, stage 3 unspecified (CMS/HCC) 05/31/2024 Lab Requisition [facility] Lab [address] [place] [phone] Torrey Kwok MD Type 2 diabetes mellitus with diabetic chronic kidney disease ([facility]/HCC); Essential (primary) hypertension; Heart failure, unspecified (CMS/HCC); 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) 05/30/2024 Lab Requisition [facility] [address] [place] [phone] Torrey Kwok MD Essential (primary) hypertension; Type 2 diabetes mellitus without complications ([facility]/HCC) 05/24/2024 Lab Requisition [facility] [address] [place] [phone] Torrey Kwok MD Type 2 diabetes mellitus with diabetic chronic kidney disease ([facility]/HCC); Essential (primary) hypertension; Heart failure, unspecified (CMS/HCC); 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 ([facility]/HCC) 05/16/2024 Lab Requisition [facility] [address] [place] [phone] Torrey Kwok MD Heart failure, unspecified ([facility]/HCC); Essential (primary) hypertension; Type 2 diabetes mellitus with diabetic chronic kidney disease ([facility]/HCC) 05/09/2024 Lab Requisition [facility] [address] [place] [phone] Torrey Kwok MD 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 ([facility]/HCC); Heart failure, unspecified (CMS/HCC); Essential (primary) hypertension; Type 2 diabetes mellitus with diabetic chronic kidney disease (CMS/HCC) 05/09/2024 Lab Requisition [facility] [address] [place] [phone] Torrey Kwok MD 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 ([facility]/HCC); Heart failure, unspecified (CMS/HCC); Essential (primary) hypertension; Type 2 diabetes mellitus with diabetic chronic kidney disease ([facility]/HCC) 05/06/2024 Lab Requisition [facility] Lab [address] [place] [phone] Torrey Kwok MD Type 2 diabetes mellitus without complications ([facility]/HCC) 05/05/2024 Lab Requisition [facility] Lab [address] [place] [phone] Torrey Kwok MD Chronic kidney disease, stage 3 unspecified ([facility]/HCC); Type 2 diabetes mellitus with diabetic chronic kidney disease ([facility]/HCC) 05/01/2024 Lab Requisition [facility] [address] [place] [phone] Torrey Kwok MD Type 2 diabetes mellitus without complications ([facility]/HCC) 04/30/2024 Lab Requisition [facility] [address] [place] [phone] Torrey Kwok MD Type 2 diabetes mellitus without complications ([facility]/HCC) 04/29/2024 Lab Requisition [facility] Lab [address] [place] [phone] Torrey Kwok MD Dysuria 04/25/2024 Lab Requisition [facility] Lab [address] [place] [phone] Torrey Kwok MD Vitamin D deficiency, unspecified; 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 ([facility]); Heart failure, unspecified ([facility]); Essential (primary) hypertension from Last [...] COVID-19 Vaccine (2 - season) 2023 02/15/2021 Cholesterol Screening (Lipid Panel) 04/25/2024 Depression Screening 04/25/2024 Falls Risk Assessment 04/25/2024 Medicare Annual Wellness Visit 04/25/2024 Osteoporosis Screening (Bone Density Screening) 04/25/2024 Social Influencers of Health Screening 04/25/2024 Diabetes: Blood Sugar Control Test (HGBA1C) 10/23/2024 04/25/2024 Influenza Vaccine (Season Ended) 2024 01/31/2021, 01/28/2019, 01/07/2018, Additional history exists Hypertension/CHF/CAD Annual BMP Blood Test 07/07/2025 07/11/2024, 07/07/2024, 06/30/2024, Additional history exists HIB Vaccines Aged Out [...] Associated Diagnosis Comments BASIC METABOLIC PANEL Routine 07/11/2024 6:58 AM EDT Chronic kidney disease, stage 3 unspecified (CMS/HCC) BASIC METABOLIC PANEL Routine 07/07/2024 5:35 [...] Months Results * (ABNORMAL) Basic metabolic panel (07/11/2024 6:58 AM EDT) Only the most recent of16 resultswithin the time period is included. Sodium 135 133 - 145 mmol/L LAB CHEMISTRY METHOD 07/11/2024 12:06 PM [facility] Potassium 4.3 3.5 - 5.5 mmol/L LAB CHEMISTRY METHOD 07/11/2024 12:06 PM [facility] Chloride 101 96 - 110 mmol/L LAB CHEMISTRY METHOD 07/11/2024 12:06 PM [facility] CO2 26 21 - 32 mmol/L LAB CHEMISTRY METHOD 07/11/2024 12:06 PM [facility] Anion Gap 8 3 - 11 LAB CHEMISTRY METHOD 07/11/2024 12:06 PM EDT [facility] Glucose 216(H) 70 - 100 mg/dL LAB CHEMISTRY METHOD 07/11/2024 12:06 PM EDT [facility] BUN 45(H) 5 - 25 mg/dL [facility] Creatinine 1.38(H) 0.50 - 1.10 mg/dL LAB CHEMISTRY METHOD 07/11/2024 12:06 PM EDT [facility] eGFR 37(L) >=60 mL/min/1. 73m2 LAB CHEMISTRY METHOD 07/11/2024 12:06 PM EDT [facility] Comment:Calculation based on the??Chronic Kidney Disease Epidemiology Collaboration (CKD-EPI) equation refit??without adjustment for race. BUN/Creatinine Ratio 32.6 LAB [facility]STR[facility] Calcium 8.8 8.5 - 10.5 mg/dL LAB CHEMISTRY METHOD 07/11/2024 12:06 PM [facility] Blood Venous blood specimen / Unknown Venipuncture / Unknown 07/11/2024 6:58 AM EDT 07/11/2024 10:53 AM EDT us Torrey Kwok MD LAB BLOOD ORDERABLES Final Resul t [facility] [address] [place] [address], * (ABNORMAL) Complete blood count (07/07/2024 5:35 AM EDT) Only the most recent of15 resultswithin the time period is included. WBC 6.3 4.8 - 10.8 K/mcL LAB HEMETOLOGY METHOD 07/07/2024 11:43 AM EDT [facility] RBC 2.90(L) 3.80 - 4.80 M/mcL LAB HEMETOLOGY METHOD 07/07/2024 11:43 AM [facility] Hemoglobin 9.5(L) 11.5 - 16.0 g/dL LAB HEMETOLOGY METHOD 07/07/2024 11:43 AM [facility] Hematocrit 30.2(L) 35.0 - 47.0 % LAB HEMETOLOGY METHOD 07/07/2024 11:43 AM [facility] MCV 103.4(H) 79.0 - 98.0 FL LAB HEMETOLOGY METHOD 07/07/2024 11:43 AM [facility] MCH 32.5(H) 27.0 - 32.0 pcg LAB HEMETOLOGY METHOD 07/07/2024 11:43 AM [facility] MCHC 31.5(L) 32.0 - 37.0 g/dL LAB HEMETOLOGY METHOD 07/07/2024 11:43 AM [facility] RDW 18.3(H) 11.0 - 15.0 % LAB HEMETOLOGY METHOD 07/07/2024 11:43 AM [facility] Platelets 312 130 - 400 K/mcL LAB HEMETOLOGY METHOD 07/07/2024 11:43 AM [facility] MPV 10.8 7.0 - 11.0 FL LAB HEMETOLOGY METHOD 07/07/2024 11:43 AM [facility] NRBC 0.0 <1.0 % LAB HEMETOLOGY METHOD 07/07/2024 11:43 AM [facility] NRBC Absolute 0.00 <0.10 K/mcL LAB HEMETOLOGY METHOD 07/07/2024 11:43 AM [facility] Blood Venous blood specimen / Unknown Venipuncture / Unknown 07/07/2024 5:35 AM EDT 07/07/2024 10:37 AM EDT us Torrey Kwok MD LAB BLOOD ORDERABLES Final Resul t Performing Organization Address [facility] Co de Phone Number [facility] [address] [place] [address], [place] [phone] * Lavender tube (07/04/2024 7:07 AM EDT) Pathologist [facility] Extra Tube Hold for add-ons. 07/04/2024 12:01 PM EDT [facility] Comment:Auto resulted. Blood Venous blood specimen / Unknown Venipuncture / Unknown 07/04/2024 7:07 AM EDT 07/04/2024 10:40 AM EDT us Torrey Kwok MD LAB BLOOD ORDERABLES Final Resul t Performing Organization Address [facility] de Phone Number [facility] [address] [place] [address], [place] [phone] * (ABNORMAL) Thyroid stimulating hormone (06/23/2024 5:47 AM EDT) Only the most recent of2 resultswithin the time period is included. [facility] TSH 21.48(H) 0.40 - 4.00 mcIU/mL LAB CHEMISTRY METHOD 06/23/2024 1:59 PM EDT [facility] Blood Venous blood specimen / Unknown Venipuncture / Unknown 06/23/2024 5:47 AM EDT 06/23/2024 11:30 AM EDT us Torrey Kwok MD LAB BLOOD ORDERABLES Final Resul t Performing Organization Address [facility] Co de Phone Number [facility] [address] [place] [address], [place] [phone] * Vitamin D 25 hydroxy (06/07/2024 6:36 AM EST) Only the most recent of2 resultswithin the time period is included. Vit D, 25-Hydroxy 41.4 30.0 - 80.0 ng/mL LAB CHEMISTRY METHOD 06/07/2024 1:29 PM [facility] Blood Venous blood specimen / Unknown Venipuncture / Unknown 06/07/2024 6:36 AM EST 06/07/2024 9:58 AM EST us Torrey Kwok MD LAB BLOOD ORDERABLES Final Resul t Performing Organization Address City/[facility]/ZIP Co de Phone Number [facility] [address] [place] [address], [place] [phone] * Folate (06/07/2024 6:36 AM EST) Only the most recent of2 resultswithin the time period is included. Pathologist [facility] Folate 9.8 2.8 - 17.0 ng/ml LAB CHEMISTRY METHOD 06/07/2024 12:13 PM [facility] Blood Venous blood specimen / Unknown Venipuncture / Unknown 06/07/2024 6:36 AM EST 06/07/2024 9:58 AM EST us Torrey Kwok MD LAB BLOOD ORDERABLES Final Resul t Performing Organization Address City/[facility]/ZIP Co de Phone Number [facility] [address] [place] [address], [place] [phone] * (ABNORMAL) Vitamin B12 (06/07/2024 6:36 AM EST) Only the most recent of2 resultswithin the time period is included. Pathologist [facility] Vitamin B-12 1,072(H) 250 - 900 pcg/mL LAB CHEMISTRY METHOD 06/07/2024 12:13 PM [facility] Blood Venous blood specimen / Unknown Venipuncture / Unknown 06/07/2024 6:36 AM EST 06/07/2024 9:58 AM EST us Torrey Kwok MD LAB BLOOD ORDERABLES Final Resul t Performing Organization Address City/[facility]/ZIP Co de Phone Number [facility] [address] [place] [address], [place] [phone] * (ABNORMAL) B-type natriuretic peptide (05/26/2024 5:59 AM EST) Pathologist [facility] BNP 320(H) <=100 pcg/mL LAB CHEMISTRY METHOD 05/26/2024 1:35 PM EST [facility] Blood Venous blood specimen / Unknown Venipuncture / Unknown 05/26/2024 5:59 AM EST 05/26/2024 11:00 AM EST us Torrey Kwok MD LAB BLOOD ORDERABLES Final Resul t Performing Organization Address [facility]/ZIP Co de Phone Number [facility] [address] [place] [address], [place] [phone] * (ABNORMAL) Comprehensive metabolic panel (05/26/2024 5:59 AM EST) Only the most recent of2 resultswithin the time period is included. [facility] Sodium 141 133 - 145 mmol/L LAB CHEMISTRY METHOD 05/26/2024 11:56 AM [facility] Potassium 3.5 3.5 - 5.5 mmol/L LAB CHEMISTRY METHOD 05/26/2024 11:56 AM [facility] Chloride 101 96 - 110 mmol/L LAB CHEMISTRY METHOD 05/26/2024 11:56 AM [facility] CO2 26 21 - 32 mmol/L LAB CHEMISTRY METHOD 05/26/2024 11:56 AM [facility] Anion Gap 14(H) 3 - 11 LAB CHEMISTRY METHOD 05/26/2024 11:56 AM [facility] Glucose 200(H) 70 - 100 mg/dL LAB CHEMISTRY METHOD 05/26/2024 11:56 AM [facility] BUN 35(H) 5 - 25 mg/dL LAB CHEMISTRY METHOD 05/26/2024 11:56 AM [facility] Creatinine 1.16(H) 0.50 - 1.10 mg/dL LAB CHEMISTRY METHOD 05/26/2024 11:56 AM [facility] eGFR 46(L) >=60 mL/min/1. 73m2 LAB CHEMISTRY METHOD 05/26/2024 11:56 AM [facility] Comment:Calculation based on the??Chronic Kidney Disease Epidemiology Collaboration (CKD-EPI) equation refit??without adjustment for race. BUN/Creatinine Ratio 30.2 LAB CHEMISTRY METHOD 05/26/2024 11:56 AM [facility] Calcium 8.9 8.5 - 10.5 mg/dL LAB CHEMISTRY METHOD 05/26/2024 11:56 AM [facility] AST (SGOT) 21 10 - 42 unit/L LAB CHEMISTRY METHOD 05/26/2024 11:56 AM [facility] ALT (SGPT) 20 10 - 60 unit/L LAB CHEMISTRY METHOD 05/26/2024 11:56 AM [facility] Alkaline Phosphatase 146(H) 42 - 121 unit/L LAB CHEMISTRY METHOD 05/26/2024 11:56 AM [facility] Total Protein 6.8 6.0 - 8.0 g/dL LAB CHEMISTRY METHOD 05/26/2024 11:56 AM [facility] Albumin 3.6 3.2 - 5.0 g/dL LAB CHEMISTRY METHOD 05/26/2024 11:56 AM [facility] Total Bilirubin 0.6 0.0 - 1.4 mg/dL LAB CHEMISTRY METHOD 05/26/2024 11:56 AM [facility] Blood Venous blood specimen / Unknown Venipuncture / Unknown 05/26/2024 5:59 AM EST 05/26/2024 11:00 AM EST us Torrey Kwok MD LAB BLOOD ORDERABLES Final Resul t [facility] [address] [place] [address], [place] [phone] * (ABNORMAL) Urinalysis with reflex microscopic and culture (04/28/2024 12:15 PM EST) Specific [place] Urine 1.021 1.003 - 1.030 LAB URINALYSIS - AUTOMATED METHOD 04/29/2024 11:05 AM [facility] pH, Urine 5.5 5.0 - 8.0 pH LAB URINALYSIS - AUTOMATED METHOD 04/29/2024 11:05 AM [facility] Leukocytes, Urine Trace(A) Negative LAB URINALYSIS - AUTOMATED METHOD 04/29/2024 11:05 AM [facility] Nitrite, Urine Negative Negative LAB URINALYSIS - AUTOMATED METHOD 04/29/2024 11:05 AM [facility] Protein, Urine Trace <=Trace mg/dL LAB URINALYSIS - AUTOMATED METHOD 04/29/2024 11:05 AM [facility] Glucose, Urine >=1000(A) Negative mg/dL LAB URINALYSIS - AUTOMATED METHOD 04/29/2024 11:05 AM [facility] Ketones, Urine 15(A) Negative mg/dL LAB URINALYSIS - AUTOMATED METHOD 04/29/2024 11:05 AM [facility] Urobilinogen , Urine 0.2 0.2 - 1.0 mg/dL LAB URINALYSIS - AUTOMATED METHOD 04/29/2024 11:05 AM [facility] Bilirubin, Urine Negative Negative LAB URINALYSIS - AUTOMATED METHOD 04/29/2024 11:05 AM [facility] Blood, Urine Negative Negative LAB URINALYSIS - AUTOMATED METHOD 04/29/2024 11:05 AM [facility] RBC, Urine 0.8 0 - 4 /HPF LAB URINALYSIS - AUTOMATED METHOD 04/29/2024 11:05 AM [facility] WBC, Urine 12.6(H) 0 - 4 /HPF LAB URINALYSIS - AUTOMATED METHOD 04/29/2024 11:05 AM [facility] Squamous Epithelial, Urine 10 0 - 60 /LPF LAB URINALYSIS - AUTOMATED METHOD 04/29/2024 11:05 AM [facility] Bacteria, Urine Many(A) Negative /HPF LAB URINALYSIS - AUTOMATED METHOD 04/29/2024 11:05 AM [facility] Hyaline Casts, Urine 0.4 0 - 3 /LPF LAB URINALYSIS - AUTOMATED METHOD 04/29/2024 11:05 AM [facility] Urine Urine specimen from urinary conduit / Unknown Non-blood Collection / Unknown 04/28/2024 12:15 PM EST 04/29/2024 9:53 AM EST us Torrey Kwok MD LAB URINE ORDERABLES Final Resul t Performing Organization Address [facility]/ZIP Co de Phone Number [facility] [address] [place] [address], * Frost urine culture tube (04/28/2024 12:15 PM EST) Extra Tube Hold for add-ons. 04/29/2024 11:01 AM [facility] Comment:Auto resulted. Urine Urine specimen obtained by clean catch procedure / Unknown 04/28/2024 12:15 PM EST 04/29/2024 9:53 AM EST us Torrey Kwok MD LAB URINE ORDERABLES Final Resul t Performing Organization Address City/[facility]/ZIP Co de Phone Number [facility] [address] [place] [address], [place] [phone] * (ABNORMAL) Culture urine (04/28/2024 12:15 PM [...] Final Result [facility] [address] [place] [address], [place] [phone] * (ABNORMAL) Hemoglobin A1c (04/25/2024 5:49 AM [...] Resul t [facility] [address] [place] [address], [place] [phone] from Last 3 Months Insurance MEDICARE [facility] Care Teams Floor Scraper Relationship Specialty Start Date End Date Torrey Kwok MD [address] [facility] [address] [place] [address] PCP - General Geriatric Medicine 04/25/24
--- OUTSIDE RECORDS SUMMARY | 2024-07-11 16:28 | XMS_ITS | Encounter Summary ---
Author Organization [facility] Address [address] [place] [phone] Care Team Providers Care Journeyman Pressman Name Role Phone Torrey Kwok MD Primary Care Provider [phone] Encounter Details Date Type Department Care Team (Late st Contact Info) Description 07/05/2024 Lab Requisition [facility] - Main Lab 299 [facility] [place] [address] Torrey Kwok MD [address] [place], [place] [id number] Type 2 diabetes mellitus with diabetic chronic [...] mmol/L LAB CHEMISTRY METHOD 07/07/2024 12:[address] [facility] Potassium 4.0 3.5 - 5.5 mmol/L LAB CHEMISTRY METHOD 07/07/2024 12:[address] [facility] Chloride 107 96 - 110 mmol/L LAB CHEMISTRY METHOD 07/07/2024 12:[address] [facility] CO2 27 21 - 32 mmol/L LAB CHEMISTRY METHOD 07/07/2024 12:[address] [facility] Anion Gap 8 3 - 11 LAB CHEMISTRY METHOD 07/07/2024 12:[address] [facility] Glucose 86 70 - 100 mg/dL LAB CHEMISTRY METHOD 07/07/2024 12:[address] [facility] BUN 37(H) 5 - 25 mg/dL LAB CHEMISTRY METHOD 07/07/2024 12:[address] [facility] Creatinine 1.13(H) 0.50 - 1.10 mg/dL LAB CHEMISTRY METHOD 07/07/2024 12:[address] [facility] eGFR 47(L) >=60 mL/min/1. 73m2 LAB CHEMISTRY METHOD 07/07/2024 12:[address] [facility] Comment:Calculation based on the??Chronic Kidney Disease Epidemiology Collaboration (CKD-EPI) equation refit??without adjustment for race. BUN/Creatinine Ratio 32.7 LAB CHEMISTRY METHOD 07/07/2024 12:[address] [facility] Calcium 8.8 8.5 - 10.5 mg/dL LAB CHEMISTRY METHOD 07/07/2024 12:[address] [facility] Blood Venous blood specimen / Unknown Venipuncture / Unknown 07/07/2024 5:35 AM EDT 07/07/2024 10:37 AM EDT Torrey Kwok MD LAB BLOOD ORDERABLES Final Resul t [facility] [address] [place] [address], * (ABNORMAL) Complete blood count (07/07/2024 5:35 AM EDT) [facility] WBC 6.3 4.8 - 10.8 K/mcL LAB HEMETOLOGY METHOD 07/07/2024 11:43 AM EDT [facility] RBC 2.90(L) 3.80 - 4.80 M/mcL LAB HEMETOLOGY [facility] Hemoglobin 9.5(L) 11.5 - 16.0 g/dL LAB HEMETOLOGY METHOD 07/07/2024 11:43 AM T [facility] Hematocrit 30.2(L) 35.0 - 47.0 % LAB HEMETOLOGY METHOD 07/07/2024 11:[address] [facility] MCV 103.4(H) 79.0 - 98.0 FL LAB HEMETOLOGY METHOD 07/07/2024 11:43 AM EDT [facility] MCH 32.5(H) 27.0 - 32.0 pcg LAB HEMETOLOGY METHOD 07/07/2024 11:43 AM T [facility] MCHC 31.5(L) 32.0 - 37.0 g/dL LAB HEMETOLOGY METHOD 07/07/2024 11:[address] [facility] RDW 18.3(H) 11.0 - 15.0 % LAB HEMETOLOGY METHOD 07/07/2024 11:43 AM EDT [facility] Platelets 312 130 - 400 K/mcL LAB HEMETOLOGY METHOD 07/07/2024 11:43 AM EDT [facility] MPV 10.8 7.0 - 11.0 FL LAB HEMETOLOGY METHOD 07/07/2024 11:43 AM EDT [facility] NRBC 0.0 <1.0 % LAB HEMETOLOGY METHOD 07/07/2024 11:43 AM EDT [facility] NRBC Absolute 0.00 <0.10 K/mcL LAB HEMETOLOGY METHOD 07/07/2024 11:43 AM EDT [facility] Blood Venous blood specimen / Unknown Venipuncture / Unknown 07/07/2024 5:35 AM EDT 07/07/2024 10:37 AM EDT us Torrey Kwok MD LAB BLOOD ORDERABLES Final Resul t [facility] [address] [place] [address], documented in this encounter Visit Diagnoses Diagnosis Type 2 diabetes mellitus with diabetic chronic kidney disease (CMS/HCC) Essential (primary) hypertension Unspecified essential hypertension Heart failure, unspecified (CMS/HCC) Heart failure, unspecified 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
--- OUTSIDE RECORDS SUMMARY | 2024-07-11 16:28 | XMS_ITS | Encounter Summary ---
Author Organization [facility] Address [address] [place] [address] Care Team Providers Care Rehab Consultant Name Role Phone Torrey Kwok MD Primary Care Provider [phone] Encounter Details Date Type Department Care Team (Late st Contact Info) Description 06/14/2024 Lab Requisition [facility] - Main Lab 299 [facility] [place] [address] Torrey Kwok MD [address] [place], [place] [phone] Type 2 diabetes mellitus with diabetic chronic [...] mmol/L LAB CHEMISTRY METHOD 06/16/2024 11:[address] [facility] Potassium 4.2 3.5 - 5.5 mmol/L LAB CHEMISTRY METHOD 06/16/2024 11:[address] [facility] Chloride 103 96 - 110 mmol/L LAB CHEMISTRY METHOD 06/16/2024 11:[address] [facility] CO2 26 21 - 32 mmol/L LAB CHEMISTRY METHOD 06/16/2024 11:[address] [facility] Anion Gap 10 3 - 11 LAB CHEMISTRY METHOD 06/16/2024 11:[address] [facility] Glucose 319(H) 70 - 100 mg/dL LAB CHEMISTRY METHOD 06/16/2024 11:[address] [facility] BUN 26(H) 5 - 25 mg/dL LAB CHEMISTRY METHOD 06/16/2024 11:[address] [facility] Creatinine 0.97 0.50 - 1.10 mg/dL LAB CHEMISTRY METHOD 06/16/2024 11:[address] [facility] eGFR 57(L) >=60 mL/min/1. 73m2 LAB CHEMISTRY METHOD 06/16/2024 11:[address] [facility] Comment:Calculation based on the??Chronic Kidney Disease Epidemiology Collaboration (CKD-EPI) equation refit??without adjustment for race. BUN/Creatinine Ratio 26.8 LAB CHEMISTRY METHOD 06/16/2024 11:[address] [facility] Calcium 8.8 8.5 - 10.5 mg/dL LAB CHEMISTRY METHOD 06/16/2024 11:[address] [facility] Blood Venous blood specimen / Unknown Venipuncture / Unknown 06/16/2024 5:17 AM EDT 06/16/2024 10:33 AM EDT Torrey Kwok MD LAB BLOOD ORDERABLES Final Resul t [facility] [address] [place] [address], * (ABNORMAL) Complete blood count (06/16/2024 5:17 AM EDT) [facility] WBC 6.8 4.8 - 10.8 K/mcL LAB HEMETOLOGY METHOD 06/16/2024 11:13 AM EDT [facility] RBC 3.40(L) 3.80 - 4.80 M/mcL LAB HEMETOLOGY METHOD 06/16/2024 11:[address] [facility] Hemoglobin 10.9(L) 11.5 - 16.0 g/dL LAB HEMETOLOGY METHOD 06/16/2024 11:[address] [facility] Hematocrit 34.2(L) 35.0 - 47.0 % LAB HEMETOLOGY METHOD 06/16/2024 11:[address] [facility] MCV 101.2(H) 79.0 - 98.0 FL LAB HEMETOLOGY METHOD 06/16/2024 11:[address] [facility] MCH 32.2(H) 27.0 - 32.0 pcg LAB HEMETOLOGY METHOD 06/16/2024 11:[address] [facility] MCHC 31.9(L) 32.0 - 37.0 g/dL LAB HEMETOLOGY METHOD 06/16/2024 11:[address] [facility] RDW 18.4(H) 11.0 - 15.0 % LAB HEMETOLOGY METHOD 06/16/2024 11:[address] [facility] Platelets 326 130 - 400 K/mcL LAB HEMETOLOGY METHOD 06/16/2024 11:13 AM EDT [facility] MPV 10.5 7.0 - 11.0 FL LAB HEMETOLOGY METHOD 06/16/2024 11:13 AM EDT [facility] NRBC 0.0 <1.0 % LAB HEMETOLOGY METHOD 06/16/2024 11:13 AM EDT [facility] NRBC Absolute 0.00 <0.10 K/mcL LAB HEMETOLOGY METHOD 06/16/2024 11:13 AM EDT [facility] Blood Venous blood specimen / Unknown Venipuncture / Unknown 06/16/2024 5:17 AM EDT 06/16/2024 10:36 AM EDT us Torrey Kwok MD LAB BLOOD ORDERABLES Final Resul t [facility] [address] [place] [address], documented in this encounter Visit Diagnoses Diagnosis Type 2 diabetes mellitus with diabetic chronic kidney disease (CMS/HCC) Essential (primary) hypertension Unspecified essential hypertension Heart failure, unspecified (CMS/HCC) Heart failure, unspecified 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
--- OUTSIDE RECORDS SUMMARY | 2024-07-11 16:28 | XMS_ITS | Encounter Summary ---
Author Organization [facility] Address [address] [place] [phone] Care Team Providers Care Fruit Peeler Name Role Phone Torrey Kwok MD Primary Care Provider [phone] Encounter Details Date Type Department Care Team (Late st Contact Info) Description 06/07/[address] [facility] - Main Lab 299 [facility] [place] [address] Torrey Kwok MD [address] [place], [place] [phone] Heart failure, unspecified (CMS/HCC); Type 2 diabetes [...] D 25 hydroxy (06/07/2024 6:36 AM EST) [facility] Vit D, 25-Hydroxy 41.4 30.0 - 80.0 ng/mL LAB CHEMISTRY METHOD 06/07/2024 1:29 PM EST [facility] Blood Venous blood specimen / Unknown Venipuncture / Unknown 06/07/2024 6:36 AM EST 06/07/2024 9:58 AM EST us Torrey Kwok MD LAB BLOOD ORDERABLES Final Resul t [facility] [address] [place] [address], [place] [phone] * Folate (06/07/2024 6:36 AM EST) [facility] Folate 9.8 2.8 - 17.0 ng/ml LAB CHEMISTRY METHOD 06/07/2024 12:13 PM EST [facility] Blood Venous blood specimen / Unknown Venipuncture / Unknown 06/07/2024 6:36 AM EST 06/07/2024 9:58 AM EST us Torrey Kwok MD LAB BLOOD ORDERABLES Final Resul t [facility] [address] [place] [address], [place] [phone] * (ABNORMAL) Vitamin B12 (06/07/2024 6:36 AM EST) Vitamin B-12 1,072(H) 250 - 900 pcg/mL LAB CHEMISTRY METHOD 06/07/2024 12:13 PM EST [facility] Blood Venous blood specimen / Unknown Venipuncture / Unknown 06/07/2024 6:36 AM EST 06/07/2024 9:58 AM EST Torrey Kwok MD LAB BLOOD ORDERABLES Final Resul t [facility] [address] [place] [address], documented in this encounter Visit Diagnoses Diagnosis Heart failure, unspecified (CMS/HCC) Heart failure, unspecified Type 2 diabetes mellitus with diabetic chronic kidney disease (CMS/HCC) Chronic kidney disease, stage 3 unspecified (CMS/HCC) Vitamin D deficiency, unspecified Essential (primary) hypertension Unspecified essential hypertension documented in this encounter Care Teams Fruit Peeler Relationship Specialty Start Date End Date Torrey Kwok MD [address] [place] [address] [address] [place] [address] PCP - General Geriatric Medicine 04/25/24 documented as of this encounter
--- OUTSIDE RECORDS SUMMARY | 2024-07-11 16:28 | XMS_ITS | Encounter Summary ---
Author Organization [facility] Address [address] [place] [phone] Care Team Providers Care Strategy Manager Name Role Phone Torrey Kwok MD Primary Care Provider [phone] Encounter Details Date Type Department Care Team (Late st Contact Info) Description 06/28/2024 Lab Requisition [facility] - Main Lab 299 [facility] [place] [address] Torrey Kwok MD [address] [place], [place] [phone] Type 2 diabetes mellitus with diabetic chronic [...] mmol/L LAB CHEMISTRY METHOD 06/30/2024 12:00 PM [facility] Potassium 4.1 3.5 - 5.5 mmol/L LAB CHEMISTRY METHOD 06/30/2024 12:00 PM [facility] Chloride 106 96 - 110 mmol/L LAB CHEMISTRY METHOD 06/30/2024 12:00 PM [facility] CO2 28 21 - 32 mmol/L LAB CHEMISTRY METHOD 06/30/2024 12:00 PM [facility] Anion Gap 8 3 - 11 LAB CHEMISTRY METHOD 06/30/2024 12:00 PM [facility] Glucose 159(H) 70 - 100 mg/dL LAB CHEMISTRY METHOD 06/30/2024 12:00 PM [facility] BUN 47(H) 5 - 25 mg/dL LAB CHEMISTRY METHOD 06/30/2024 12:00 PM [facility] Creatinine 1.11(H) 0.50 - 1.10 mg/dL LAB CHEMISTRY METHOD 06/30/2024 12:00 PM [facility] eGFR 48(L) >=60 mL/min/1. 73m2 LAB CHEMISTRY METHOD 06/30/2024 12:00 PM [facility] Comment:Calculation based on the??Chronic Kidney Disease Epidemiology Collaboration (CKD-EPI) equation refit??without adjustment for race. BUN/Creatinine Ratio 42.3 LAB CHEMISTRY METHOD 06/30/2024 12:00 PM [facility] Calcium 8.8 8.5 - 10.5 mg/dL LAB CHEMISTRY METHOD 06/30/2024 12:00 PM [facility] Blood Venous blood specimen / Unknown Venipuncture / Unknown 06/30/2024 6:10 AM EDT 06/30/2024 11:01 AM EDT us Torrey Kwok MD LAB BLOOD ORDERABLES Final Resul t [facility] [address] [place] [address], * (ABNORMAL) Complete blood count (06/30/2024 6:10 AM EDT) [facility] WBC 6.0 4.8 - 10.8 K/mcL LAB HEMETOLOGY METHOD 06/30/2024 11:46 AM EDT [facility] RBC 2.90(L) 3.80 - 4.80 M/mcL LAB HEMETOLOGY METHOD 06/30/2024 11:46 AM [facility] Hemoglobin 9.5(L) 11.5 - 16.0 g/dL LAB HEMETOLOGY METHOD 06/30/2024 11:46 AM [facility] Hematocrit 29.9(L) 35.0 - 47.0 % LAB HEMETOLOGY METHOD 06/30/2024 11:46 AM [facility] MCV 101.7(H) 79.0 - 98.0 FL LAB HEMETOLOGY METHOD 06/30/2024 11:46 AM [facility] MCH 32.3(H) 27.0 - 32.0 pcg LAB HEMETOLOGY METHOD 06/30/2024 11:46 AM [facility] MCHC 31.8(L) 32.0 - 37.0 g/dL LAB HEMETOLOGY METHOD 06/30/2024 11:46 AM [facility] RDW 18.5(H) 11.0 - 15.0 % LAB HEMETOLOGY METHOD 06/30/2024 11:46 AM [facility] Platelets 309 130 - 400 K/mcL LAB HEMETOLOGY METHOD 06/30/2024 11:46 AM EDT [facility] MPV 10.7 7.0 - 11.0 FL LAB HEMETOLOGY METHOD 06/30/2024 11:46 AM EDT [facility] NRBC 0.0 <1.0 % LAB HEMETOLOGY METHOD 06/30/2024 11:46 AM EDT [facility] NRBC Absolute 0.00 <0.10 K/mcL LAB HEMETOLOGY METHOD 06/30/2024 11:46 AM EDT [facility] Blood Venous blood specimen / Unknown Venipuncture / Unknown 06/30/2024 6:10 AM EDT 06/30/2024 11:01 AM EDT Torrey Kwok MD LAB BLOOD ORDERABLES Final Resul t [facility] [address] [place] [address], documented in this encounter Visit Diagnoses Diagnosis Type 2 diabetes mellitus with diabetic chronic kidney disease (CMS/HCC) Essential (primary) hypertension Unspecified essential hypertension Heart failure, unspecified (CMS/HCC) Heart failure, unspecified 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
--- OUTSIDE RECORDS SUMMARY | 2024-07-11 16:28 | XMS_ITS | Encounter Summary ---
Author Organization [facility] Address [address] [place] [phone] Care Team Providers Care Basketballs And Footballs Reverser Name Role Phone Torrey Kwok MD Primary Care Provider [phone] Encounter Details Date Type Department Care Team (Late st Contact Info) Description 07/03/2024 Lab Requisition [facility] - Main Lab 299 [facility] [place] [address] Torrey Kwok MD [address] [place] [address] Chronic kidney disease, stage 3 unspecified (CMS/HCC); [...] Hold for add-ons. 07/04/2024 12:01 PM EDT [facility] Comment:Auto resulted. Blood Venous blood specimen / Unknown Venipuncture / Unknown 07/04/2024 7:07 AM EDT 07/04/2024 10:40 AM EDT Torrey Kwok MD LAB BLOOD ORDERABLES Final Resul t [facility] ([facility]) [facility] [address] [place] [address], documented in this encounter Visit Diagnoses Diagnosis Chronic kidney disease, stage 3 unspecified (CMS/HCC) Type 2 diabetes mellitus with hyperglycemia (CMS/HCC) documented in this encounter Care Teams Basketballs And Footballs Reverser Relationship Specialty Start Date End Date Torrey Kwok MD [address] [place] [address] [address] [place] [address] PCP - General Geriatric Medicine 04/25/24 documented as of this encounter
--- OUTSIDE RECORDS SUMMARY | 2024-07-11 16:28 | XMS_ITS | Encounter Summary ---
Author Organization [facility] Address [address] [place] [phone] Care Team Providers Care Medical Records Director Name Role Phone Torrey Kwok MD Primary Care Provider [phone] Encounter Details Date Type Department Care Team (Late st Contact Info) Description 05/24/2024 Lab Requisition [facility] - Main Lab 299 [facility] [place] [address] Torrey Kwok MD [address] [place], [place] [id number] Type 2 diabetes mellitus with diabetic chronic [...] mmol/L LAB CHEMISTRY METHOD 05/26/2024 11:56 AM [facility] Potassium 3.5 3.5 - 5.5 mmol/L LAB CHEMISTRY METHOD 05/26/2024 11:56 AM [facility] Chloride 101 96 - 110 mmol/L LAB CHEMISTRY METHOD 05/26/2024 11:56 AM [facility] CO2 26 21 - 32 mmol/L LAB CHEMISTRY METHOD 05/26/2024 11:56 AM [facility] Anion Gap 14(H) 3 - 11 LAB CHEMISTRY METHOD 05/26/2024 11:56 AM [facility] Glucose 200(H) 70 - 100 mg/dL LAB CHEMISTRY METHOD 05/26/2024 11:56 AM [facility] BUN 35(H) 5 - 25 mg/dL LAB CHEMISTRY METHOD 05/26/2024 11:56 AM [facility] Creatinine 1.16(H) 0.50 - 1.10 mg/dL LAB CHEMISTRY METHOD 05/26/2024 11:56 AM [facility] eGFR 46(L) >=60 mL/min/1. 73m2 LAB CHEMISTRY METHOD 05/26/2024 11:56 AM [facility] Comment:Calculation based on the??Chronic Kidney Disease Epidemiology Collaboration (CKD-EPI) equation refit??without adjustment for race. BUN/Creatinine Ratio 30.2 LAB CHEMISTRY METHOD 05/26/2024 11:56 AM [facility] Calcium 8.9 8.5 - 10.5 mg/dL LAB CHEMISTRY METHOD 05/26/2024 11:56 AM [facility] AST (SGOT) 21 10 - 42 unit/L LAB CHEMISTRY METHOD 05/26/2024 11:56 AM [facility] ALT (SGPT) 20 10 - 60 unit/L LAB CHEMISTRY METHOD 05/26/2024 11:56 AM [facility] Alkaline Phosphatase 146(H) 42 - 121 unit/L LAB CHEMISTRY METHOD 05/26/2024 11:56 AM [facility] Total Protein 6.8 6.0 - 8.0 g/dL LAB CHEMISTRY METHOD 05/26/2024 11:56 AM [facility] Albumin 3.6 3.2 - 5.0 g/dL LAB CHEMISTRY METHOD 05/26/2024 11:56 AM [facility] Total Bilirubin 0.6 0.0 - 1.4 mg/dL LAB CHEMISTRY METHOD 05/26/2024 11:56 AM [facility] Blood Venous blood specimen / Unknown Venipuncture / Unknown 05/26/2024 5:59 AM EST 05/26/2024 11:00 AM EST us Torrey Kwok MD LAB BLOOD ORDERABLES Final Resul t [facility] [address] [place] [address], * (ABNORMAL) B-type natriuretic peptide (05/26/2024 5:59 AM EST) BNP 320(H) <=100 pcg/mL LAB CHEMISTRY METHOD 05/26/2024 1:35 PM [facility] Blood Venous blood specimen / Unknown Venipuncture / Unknown 05/26/2024 5:59 AM EST 05/26/2024 11:00 AM EST us Torrey Kwok MD LAB BLOOD ORDERABLES Final Resul t [facility] [address] [place] [address], [place] [phone] * (ABNORMAL) Basic metabolic panel (05/26/2024 5:59 AM EST) [facility] Sodium 141 133 - 145 mmol/L LAB CHEMISTRY METHOD 05/26/2024 11:50 AM [facility] Potassium 3.5 3.5 - 5.5 mmol/L LAB CHEMISTRY METHOD 05/26/2024 11:50 AM [facility] Chloride 101 96 - 110 mmol/L LAB CHEMISTRY METHOD 05/26/2024 11:50 AM [facility] CO2 26 21 - 32 mmol/L LAB CHEMISTRY METHOD 05/26/2024 11:50 AM [facility] Anion Gap 14(H) 3 - 11 LAB CHEMISTRY METHOD 05/26/2024 11:50 AM [facility] Glucose 200(H) 70 - 100 mg/dL LAB CHEMISTRY METHOD 05/26/2024 11:50 AM [facility] BUN 35(H) 5 - 25 mg/dL LAB CHEMISTRY METHOD 05/26/2024 11:50 AM [facility] Creatinine 1.16(H) 0.50 - 1.10 mg/dL LAB CHEMISTRY METHOD 05/26/2024 11:50 AM [facility] eGFR 46(L) >=60 mL/min/1. 73m2 LAB CHEMISTRY METHOD 05/26/2024 11:50 AM EST [facility] Comment:Calculation based on the??Chronic Kidney Disease Epidemiology Collaboration (CKD-EPI) equation refit??without adjustment for race. BUN/Creatinine Ratio 30.2 LAB CHEMISTRY METHOD 05/26/2024 11:50 AM [facility] Calcium 8.9 8.5 - 10.5 mg/dL LAB CHEMISTRY METHOD 05/26/2024 11:50 AM [facility] Blood Venous blood specimen / Unknown Venipuncture / Unknown 05/26/2024 5:59 AM EST 05/26/2024 11:00 AM EST us Torrey Kwok MD LAB BLOOD ORDERABLES Final Resul t [facility] [address] [place] [address], * (ABNORMAL) Complete blood count (05/26/2024 5:59 AM EST) WBC 10.4 4.8 - 10.8 K/mcL LAB HEMETOLOGY METHOD 05/26/2024 11:12 AM [facility] RBC 3.30(L) 3.80 - 4.80 M/mcL LAB HEMETOLOGY METHOD 05/26/2024 11:12 AM [facility] Hemoglobin 10.7(L) 11.5 - 16.0 g/dL LAB HEMETOLOGY METHOD 05/26/2024 11:12 AM [facility] Hematocrit 34.0(L) 35.0 - 47.0 % LAB HEMETOLOGY METHOD 05/26/2024 11:12 AM [facility] MCV 102.1(H) 79.0 - 98.0 FL LAB HEMETOLOGY METHOD 05/26/2024 11:12 AM [facility] MCH 32.1(H) 27.0 - 32.0 pcg LAB HEMETOLOGY METHOD 05/26/2024 11:12 AM EST [facility] MCHC 31.5(L) 32.0 - 37.0 g/dL LAB HEMETOLOGY METHOD 05/26/2024 11:12 AM [facility] RDW 19.8(H) 11.0 - 15.0 % LAB HEMETOLOGY METHOD 05/26/2024 11:12 AM [facility] Platelets 418(H) 130 - 400 K/mcL LAB HEMETOLOGY METHOD 05/26/2024 11:12 AM EST [facility] MPV 10.0 7.0 - 11.0 FL LAB HEMETOLOGY METHOD 05/26/2024 11:12 AM [facility] NRBC 0.0 <1.0 % LAB HEMETOLOGY METHOD 05/26/2024 11:12 AM [facility] NRBC Absolute 0.00 <0.10 K/mcL LAB HEMETOLOGY METHOD 05/26/2024 11:12 AM [facility] Blood Venous blood specimen / Unknown Venipuncture / Unknown 05/26/2024 5:59 AM EST 05/26/2024 11:00 AM EST us Torrey Kwok MD LAB BLOOD ORDERABLES Final Resul t [facility] [address] [place] [address], documented in this encounter Visit Diagnoses Diagnosis Type 2 diabetes mellitus with diabetic chronic kidney disease (CMS/HCC) Essential (primary) hypertension Unspecified essential hypertension Heart failure, unspecified (CMS/HCC) Heart failure, unspecified 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
--- OUTSIDE RECORDS SUMMARY | 2024-07-11 16:28 | XMS_ITS ---
Author Organization [facility] Address [address] [place] [address] Care Team Providers Care Commercial Property Manager Name Role Phone Monique White Primary Care Provider Arturo Brown Unavailable [phone] Allergies Allergen (clinical drug ingredient) Drug/Non Drug [...] Ordered Date Performed Result Body Sit e 45740-[id number] NAIL, 6 OR MORE 02/05/2024 N/A [id number] SKIN LESIONS, 2 TO 4 02/05/2024 N/A Encounters Encounter Location Date Provider Diagnosis [facility] [place] [address] [place] [address] 02/05/2024 Arturo Simon Type 1 diabetes mellitus [...] INSTRUCTIONS.pdf) Pending Test Test Name Order Date [id number] NAIL, 6 OR MORE 02/05/2024 34703-[id number] SKIN LESIONS, 2 TO 4 02/05/20 24 Next Appt Details Follow Up: prn, Reason: Provider Name:Arturo Simon , 08/15/2024 10:15:00 AM, [address] [place], [address], Procedure Notes * Category Sub-Category Detail Notes Debride Nail 6-10 Nail debridement Performance o f this nail treatment by a nonprofessional would put this patients foot and overall health at risk. Therefore, nail debridement was performed extensively to reduce/remove overall nail length, girth, thickness, subungual debris, and necrotic tissue, by manual and/or electrical means through the use of a nail nipper and/or dremel-type abrasive grinder, to a more viable healthy nail plate or bed tissue 6-10. Silver nitrate used for any petechial bleeding as necessary. Definitive antifungal treatment options have been reviewed and discussed with the patient. The patient chooses, no pharmaceutical tx - 65612 Keratoma Treatment Parring or Cutting o f Benign Hyperkeratotic Lesion(s) (-56) 2-4 Lesions - The Benign hyperkeratotic lesions, as described above were pared, and/or cut utilizing a sterile 15 blade, tissue nippers, and/or dremel - 93014 Progress Notes * Gerri SCHWARTZ RDOB:[birth year] (88 yo F)Acc No.[id number]:02/05/2024 Progress Note Patient:?Gerri SCHWARTZ R Provider:?Arturo Simon DPM :1935???Age:88 Y???Sex:Female D ate:02/05/2024 Address: [address] [id number] Pcp:Monique White Subjective: * Chief Complaints: * [...] Hospitalization/Major Diagno stic Procedure:?[facility] 04/2015[facility] / for medication 04/2015[facility]: A-fib 12/2015[facility]- UTI 11/16/23 * Family History:?Mother: dece ased, [...] bike. ?Marital status: . 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 * Medications:?TakingToujeo Ma x SoloStar 300 UNIT/ML [...] use of a nail nipper and/or dremel-type abrasive grinder, to a more viable healthy nail plate or bed tissue 6-10. Silver nitrate used for any petechial bleeding as necessary. Definitive antifungal treatment options have been reviewed and discussed with the patient. The patient chooses, no pharmaceutical tx - 67869.?Keratoma Treatment:?Parring or Cutting of Benign Hyperkeratotic Lesion(s)?(-56) 2-4 Lesions - The Benign hyperkeratotic lesions, as described above were pared, and/or cut utilizing a sterile 15 blade, tissue nippers, and/or dremel - 29574.? * Procedure Codes:?98041 DEBRI DE NAIL, 6 OR MORE, Modifiers: XS 01983 TRIM SKIN LESIONS, 2 TO 4, Modifiers: [...] Simon DPM Date:?2023 Generated for Awilda diggs/Lee/Nilay on:?07/11/2024 04:27 PM EDT History and Physical Notes * [...]
--- OUTSIDE RECORDS SUMMARY | 2024-07-11 16:28 | XMS_ITS | Encounter Summary ---
Author Organization [facility] Address [address] [place] [address] Care Team Providers Care Information Delivery Analyst Name Role Phone Torrey Kwok MD Primary Care Provider Encounter Details Date Type Department Care Team (Late st Contact Info) Description 04/30/2024 Lab Requisition [facility] - Main Lab [address] [facility] [place] [address] Torrey Kwok MD [address] [place] [address] Type 2 diabetes mellitus without complications (CMS/HCC) [...] AM EST) WBC 6.6 4.8 - 10.8 K/[facility] LAB HEMETOLOGY METHOD 04/30/2024 2:51 PM EST [facility] LAB RBC 3.40(L) 3.80 - 4.80 M/[facility] LAB HEMETOLOGY METHOD 04/30/2024 2:51 PM EST [facility] LAB Hemoglobin 10.7(L) 11.5 - 16.0 g/dL LAB HEMETOLOGY METHOD 04/30/2024 2:51 PM EST [facility] LAB Hematocrit 34.7(L) 35.0 - 47.0 % LAB HEMETOLOGY METHOD 04/30/2024 2:51 PM [facility] LAB MCV 101.5(H) 79.0 - 98.0 FL LAB HEMETOLOGY METHOD 04/30/2024 2:51 PM EST [facility] LAB MCH 31.3 27.0 - 32.0 pcg LAB HEMETOLOGY METHOD 04/30/2024 2:51 PM [facility] LAB MCHC 30.8(L) 32.0 - 37.0 g/dL LAB HEMETOLOGY METHOD 04/30/2024 2:51 PM [facility] LAB RDW 17.1(H) 11.0 - 15.0 % LAB HEMETOLOGY METHOD 04/30/2024 2:51 PM [facility] LAB Platelets 391 130 - 400 K/mcL LAB HEMETOLOGY METHOD 04/30/2024 2:51 PM [facility] LAB MPV 10.8 7.0 - 11.0 FL LAB HEMETOLOGY METHOD 04/30/2024 2:51 PM [facility] LAB NRBC 0.5 <1.0 % LAB HEMETOLOGY METHOD 04/30/2024 2:51 PM [facility] LAB NRBC Absolute 0.03 <0.10 K/mcL LAB HEMETOLOGY METHOD 04/30/2024 2:51 PM [facility] LAB Blood Venous blood specimen / Unknown Venipuncture / Unknown 04/30/2024 6:31 AM EST 04/30/2024 1:53 PM EST us Torrey Kwok MD LAB BLOOD ORDERABLES Final Resul t [facility] [address] [place] [address], documented in this encounter Visit Diagnoses Diagnosis Type 2 diabetes mellitus without complications documented in this encounter Care Teams Information Delivery Analyst Relationship Specialty Start Date End Date Torrey Kwok MD [address] [place] [address] [address] [place] [address] PCP - General Geriatric Medicine 04/25/24 documented as of this encounter
--- OUTSIDE RECORDS SUMMARY | 2024-07-11 16:28 | XMS_ITS | Encounter Summary ---
Author Organization [facility] Address [address] [place] [address] Phone Care Team Providers Care Epic Cadence Specialists Name Role Phone Monique White MD Primary Care Provider [phone] Encounter Details Date Type Department Care Team (Late st Contact Info) Description 06/07/2021 Telephone [facility] [address] [place] [address] Sohail Penaloza MD Social History [...] with you. Please call her back at [phone] Thank you documented in this encounter Plan of Treatment Upcoming Encounters Date Type Department Care Team (Late st Contact Info) Description 08/14/2024 2:30 PM EDT Office Visit [facility] [address] [place] [address] Tu Oliva MD [address] [facility] [address] [place] [address] documented as of this encounter Visit Diagnoses Not on filedocumented in this encounter Care Teams Epic Cadence Specialists Relationship Specialty Start Date End Date Monique White MD [facility] [place] [address] [place] PCP - General Internal Medicine 03/11/21 documented as of this encounter
--- OUTSIDE RECORDS SUMMARY | 2024-07-11 16:28 | XMS_ITS | Encounter Summary ---
Author Organization [facility] Address [address] [place] [address] Care Team Providers Care Animal Biologist Name Role Phone Torrey Kwok MD Primary Care Provider [phone] Encounter Details Date Type Department Care Team (Late st Contact Info) Description 05/06/2024 Lab Requisition [facility] Lab [address] [place] [address] Torrey Kwok MD [address] [place] [address] Type 2 diabetes mellitus without complications (CMS/HCC) [...] LAB CHEMISTRY METHOD 05/07/2024 1:13 PM EST [facility] Potassium 4.1 3.5 - 5.5 mmol/L LAB CHEMISTRY METHOD 05/07/2024 1:13 PM [facility] Chloride 96 96 - 110 mmol/L LAB CHEMISTRY METHOD 05/07/2024 1:13 PM [facility] CO2 26 21 - 32 mmol/L LAB CHEMISTRY METHOD 05/07/2024 1:13 PM [facility] Anion Gap 8 3 - 11 LAB CHEMISTRY METHOD 05/07/2024 1:13 PM [facility] Glucose 271(H) 70 - 100 mg/dL LAB CHEMISTRY METHOD 05/07/2024 1:13 PM [facility] BUN 21 5 - 25 mg/dL LAB CHEMISTRY METHOD 05/07/2024 1:13 PM [facility] Creatinine 0.98 0.50 - 1.10 mg/dL LAB CHEMISTRY METHOD 05/07/2024 1:13 PM [facility] eGFR 56(L) >=60 mL/min/1. 73m2 LAB CHEMISTRY METHOD 05/07/2024 1:13 PM [facility] LAB Comment:Calculation based on the??Chronic Kidney Disease Epidemiology Collaboration (CKD-EPI) equation refit??without adjustment for race. BUN/Creatinine Ratio 21.4 LAB CHEMISTRY METHOD 05/07/2024 1:13 PM [facility] Calcium 9.0 8.5 - 10.5 mg/dL LAB CHEMISTRY METHOD 05/07/2024 1:13 PM [facility] Blood Venous blood specimen / Unknown Venipuncture / Unknown 05/07/2024 8:42 AM EST 05/07/2024 11:51 AM EST us Torrey Kwok MD LAB BLOOD ORDERABLES Final Resul t [facility] [address] [place] [address], * (ABNORMAL) Complete blood count (05/07/2024 8:42 AM EST) [facility] WBC 9.1 4.8 - 10.8 K/mcL LAB HEMETOLOGY METHOD 05/07/2024 12:40 PM [facility] RBC 3.90 3.80 - 4.80 M/mcL LAB HEMETOLOGY METHOD 05/07/2024 12:40 PM [facility] Hemoglobin 12.4 11.5 - 16.0 g/dL LAB HEMETOLOGY METHOD 05/07/2024 12:40 PM [facility] Hematocrit 38.7 35.0 - 47.0 % LAB HEMETOLOGY METHOD 05/07/2024 12:40 PM [facility] LAB MCV 99.2(H) 79.0 - 98.0 FL LAB HEMETOLOGY METHOD 05/07/2024 12:40 PM [facility] MCH 31.8 27.0 - 32.0 pcg LAB HEMETOLOGY METHOD 05/07/2024 12:40 PM [facility] MCHC 32.0 32.0 - 37.0 g/dL LAB HEMETOLOGY METHOD 05/07/2024 12:40 PM [facility] LAB RDW 19.9(H) 11.0 - 15.0 % LAB HEMETOLOGY METHOD 05/07/2024 12:40 PM [facility] Platelets 384 130 - 400 K/mcL LAB HEMETOLOGY METHOD 05/07/2024 12:40 PM [facility] LAB MPV 10.7 7.0 - 11.0 FL LAB HEMETOLOGY METHOD 05/07/2024 12:40 PM [facility] NRBC 0.0 <1.0 % LAB HEMETOLOGY METHOD 05/07/2024 12:40 PM [facility] NRBC Absolute 0.00 <0.10 K/mcL LAB HEMETOLOGY METHOD 05/07/2024 12:40 PM [facility] Blood Venous blood specimen / Unknown Venipuncture / Unknown 05/07/2024 8:42 AM EST 05/07/2024 11:51 AM EST Torrey Kwok MD LAB BLOOD ORDERABLES Final Resul t Performing Organization Address City/State/[facility] Co de Phone Number [facility] [address] [place] [address], documented in this encounter Visit Diagnoses Diagnosis Type 2 diabetes mellitus without complications documented in this encounter Care Teams Animal Biologist Relationship Specialty Start Date End Date Torrey Kwok MD [address] [place] [address] [address] [place] [address] PCP - General Geriatric Medicine 04/25/24 documented as of this encounter
--- OUTSIDE RECORDS SUMMARY | 2024-07-11 16:28 | XMS_ITS ---
Author Organization [facility] Address [address] [place] [address] Care Team Providers Care Quality Control Microbiology Supervisor Name Role Phone Monique White MD Primary Care Provider Yane Epps Jr, John Unavailable [phone] REASON FOR VISIT refill omeprazole Medications Medication SIG (Take, Route, Frequency, Duration) Notes Start Date End Date Status Omeprazole 20 TAKE 1 CAPSULE BY MO UTH TWICE DAILY for 90 days Active Encounters Encounter Location Date Provider Diagnosis [facility] [address] [place] [address] 07/09/2023 John Epps Jr Plan Of Treatment Medication Medication Name Sig Start Date Stop Date Notes Omeprazole 20 TAKE 1 CAPSULE BY MO UTH TWICE DAILY for 90 days Progress Notes * CHARLY SCHWARTZ RDOB:[birth year] (87 yo F)Acc No.[id number]:07/09/2023 Patient:?CHARLY SCHWARTZ :1935???Age:87 Y???Sex:Female Address:[place] [address] * Refills? Refill Omeprazole Capsule Delayed Release, 20, 180, TAKE 1 CAPSULE BY MOUTH TWICE DAILY, 90 days, Refills=3 * true * Date:? Generated for Awilda diggs/Lee/eTransmitting on:?07/11/2024 04:27 PM EDT
--- OUTSIDE RECORDS SUMMARY | 2024-07-11 16:28 | XMS_ITS | Encounter Summary ---
Author Organization [facility] Address [address] [place] [address] Care Team Providers Care Combatant Diver Qualified Name Role Phone Torrey Kwok MD Primary Care Provider [phone] Encounter Details Date Type Department Care Team (Late st Contact Info) Description 06/02/2024 Lab Requisition [facility] - Main Lab [address] [facility] [place] [address] Torrey Kwok MD [address] [place], [place] [phone] Chronic diastolic (congestive) heart failure (CMS/HCC); Chronic [...] LAB CHEMISTRY METHOD 06/02/2024 3:36 PM [facility] Potassium 3.5 3.5 - 5.5 mmol/L LAB CHEMISTRY METHOD 06/02/2024 3:36 PM [facility] Chloride 93(L) 96 - 110 mmol/L LAB CHEMISTRY METHOD 06/02/2024 3:36 PM [facility] CO2 29 21 - 32 mmol/L LAB CHEMISTRY METHOD 06/02/2024 3:36 PM [facility] Anion Gap 8 3 - 11 LAB CHEMISTRY METHOD 06/02/2024 3:36 PM [facility] Glucose 468(HH) 70 - 100 mg/dL LAB CHEMISTRY METHOD 06/02/2024 3:36 PM [facility] BUN 43(H) 5 - 25 mg/dL LAB CHEMISTRY METHOD 06/02/2024 3:36 PM [facility] Creatinine 1.43(H) 0.50 - 1.10 mg/dL LAB CHEMISTRY METHOD 06/02/2024 3:36 PM [facility] eGFR 36(L) >=60 mL/min/1. 73m2 LAB CHEMISTRY METHOD 06/02/2024 3:36 PM [facility] Comment:Calculation based on the??Chronic Kidney Disease Epidemiology Collaboration (CKD-EPI) equation refit??without adjustment for race. BUN/Creatinine Ratio 30.1 LAB CHEMISTRY METHOD 06/02/2024 3:36 PM [facility] Calcium 8.7 8.5 - 10.5 mg/dL LAB CHEMISTRY METHOD 06/02/2024 3:36 PM [facility] Blood Venous blood specimen / Unknown Venipuncture / Unknown 06/02/2024 12:17 PM EST 06/02/2024 2:05 PM EST us Torrey Kwok MD LAB BLOOD ORDERABLES Final Resul t [facility] [address] [place] [address], [place] [phone] * (ABNORMAL) Complete blood count (06/02/2024 12:17 PM EST) [facility] WBC 9.0 4.8 - 10.8 K/mcL LAB HEMETOLOGY METHOD 06/02/2024 2:27 PM [facility] RBC 3.60(L) 3.80 - 4.80 M/mcL LAB HEMETOLOGY METHOD 06/02/2024 2:27 PM [facility] Hemoglobin 11.5 11.5 - 16.0 g/dL LAB HEMETOLOGY METHOD 06/02/2024 2:27 PM [facility] Hematocrit 35.4 35.0 - 47.0 % LAB HEMETOLOGY METHOD 06/02/2024 2:27 PM [facility] MCV 97.8 79.0 - 98.0 FL LAB HEMETOLOGY METHOD 06/02/2024 2:27 PM [facility] MCH 31.8 27.0 - 32.0 pcg LAB HEMETOLOGY METHOD 06/02/2024 2:27 PM [facility] MCHC 32.5 32.0 - 37.0 g/dL LAB HEMETOLOGY METHOD 06/02/2024 2:27 PM [facility] RDW 17.8(H) 11.0 - 15.0 % LAB HEMETOLOGY METHOD 06/02/2024 2:27 PM [facility] Platelets 342 130 - 400 K/mcL LAB HEMETOLOGY METHOD 06/02/2024 2:27 PM [facility] MPV 10.4 7.0 - 11.0 FL LAB HEMETOLOGY METHOD 06/02/2024 2:27 PM [facility] NRBC 0.0 <1.0 % LAB HEMETOLOGY METHOD 06/02/2024 2:27 PM EST [facility] LAB NRBC Absolute 0.00 <0.10 K/mcL LAB HEMETOLOGY METHOD 06/02/2024 2:27 PM EST [facility] Blood Venous blood specimen / Unknown Venipuncture / Unknown 06/02/2024 12:17 PM EST 06/02/2024 2:05 PM EST us Torrey Kwok MD LAB BLOOD ORDERABLES Final Resul t [facility] [address] [place] [address], documented in this encounter Visit Diagnoses Diagnosis Chronic diastolic (congestive) heart failure Chronic kidney disease, stage 3 unspecified (CMS/HCC) documented in this encounter Care Teams Combatant Diver Qualified Relationship Specialty Start Date End Date Torrey Kwok MD [address] [place] [address] [address] [place] [address] PCP - General Geriatric Medicine 04/25/24 documented as of this encounter
--- OUTSIDE RECORDS SUMMARY | 2024-07-11 16:28 | XMS_ITS | Encounter Summary ---
Author Organization [facility] Address [address] [place] [address] Care Team Providers Care Manager Park Name Role Phone Torrey Kwok MD Primary Care Provider [phone] Encounter Details Date Type Department Care Team (Late st Contact Info) Description 05/16/2024 Lab Requisition [facility] - Main Lab [address] [facility] [place] [address] Torrey Kwok MD [address] [place], [place] [phone] Heart failure, unspecified (CMS/HCC); Essential (primary) hypertension; [...] mmol/L LAB CHEMISTRY METHOD 05/19/2024 2:03 PM [facility] Potassium 3.7 3.5 - 5.5 mmol/L LAB CHEMISTRY METHOD 05/19/2024 2:03 PM [facility] Chloride 102 96 - 110 mmol/L LAB CHEMISTRY METHOD 05/19/2024 2:03 PM [facility] CO2 25 21 - 32 mmol/L LAB CHEMISTRY METHOD 05/19/2024 2:03 PM [facility] Anion Gap 10 3 - 11 LAB CHEMISTRY METHOD 05/19/2024 2:03 PM [facility] Glucose 92 70 - 100 mg/dL LAB CHEMISTRY METHOD 05/19/2024 2:03 PM [facility] BUN 23 5 - 25 mg/dL LAB CHEMISTRY METHOD 05/19/2024 2:03 PM [facility] Creatinine 0.97 0.50 - 1.10 mg/dL LAB CHEMISTRY METHOD 05/19/2024 2:03 PM [facility] eGFR 57(L) >=60 mL/min/1. 73m2 LAB CHEMISTRY METHOD 05/19/2024 2:03 PM [facility] Comment:Calculation based on the??Chronic Kidney Disease Epidemiology Collaboration (CKD-EPI) equation refit??without adjustment for race. BUN/Creatinine Ratio 23.7 LAB CHEMISTRY METHOD 05/19/2024 2:03 PM [facility] Calcium 8.8 8.5 - 10.5 mg/dL LAB CHEMISTRY METHOD 05/19/2024 2:03 PM [facility] Blood Venous blood specimen / Unknown Venipuncture / Unknown 05/19/2024 7:33 AM EST 05/19/2024 12:17 PM EST us Torrey Kwok MD LAB BLOOD ORDERABLES Final Resul t [facility] [address] [place] [address], * (ABNORMAL) Complete blood count (05/19/2024 7:33 AM EST) [facility] WBC 5.4 4.8 - 10.8 K/mcL LAB HEMETOLOGY METHOD 05/19/2024 1:26 PM [facility] RBC 3.50(L) 3.80 - 4.80 M/mcL LAB HEMETOLOGY METHOD 05/19/2024 1:26 PM [facility] Hemoglobin 11.1(L) 11.5 - 16.0 g/dL LAB HEMETOLOGY METHOD 05/19/2024 1:26 PM [facility] Hematocrit 35.7 35.0 - 47.0 % LAB HEMETOLOGY METHOD 05/19/2024 1:26 PM [facility] MCV 103.5(H) 79.0 - 98.0 FL LAB HEMETOLOGY METHOD 05/19/2024 1:26 PM [facility] MCH 32.2(H) 27.0 - 32.0 pcg LAB HEMETOLOGY METHOD 05/19/2024 1:26 PM [facility] MCHC 31.1(L) 32.0 - 37.0 g/dL LAB HEMETOLOGY METHOD 05/19/2024 1:26 PM [facility] RDW 20.0(H) 11.0 - 15.0 % LAB HEMETOLOGY METHOD 05/19/2024 1:26 PM [facility] Platelets 344 130 - 400 K/mcL LAB HEMETOLOGY METHOD 05/19/2024 1:26 PM [facility] MPV 10.8 7.0 - 11.0 FL LAB HEMETOLOGY METHOD 05/19/2024 1:26 PM [facility] NRBC 0.0 <1.0 % LAB HEMETOLOGY METHOD 05/19/2024 1:26 PM EST [facility] NRBC Absolute 0.00 <0.10 K/mcL LAB HEMETOLOGY METHOD 05/19/2024 1:26 PM EST [facility] Blood Venous blood specimen / Unknown Venipuncture / Unknown 05/19/2024 7:33 AM EST 05/19/2024 12:17 PM EST Torrey Kwok MD LAB BLOOD ORDERABLES Final Resul t [facility] [address] [place] [address], documented in this encounter Visit Diagnoses Diagnosis Heart failure, unspecified (CMS/HCC) Heart failure, unspecified Essential (primary) hypertension Unspecified essential hypertension Type 2 diabetes mellitus with diabetic chronic kidney disease (CMS/HCC) documented in this encounter Care Teams Manager Park Relationship Specialty Start Date End Date Torrey Kwok MD [address] [place] [address] [address] [place] [address] PCP - General Geriatric Medicine 04/25/24 documented as of this encounter
--- OUTSIDE RECORDS SUMMARY | 2024-07-11 16:28 | XMS_ITS | Encounter Summary ---
Author Organization [facility] Address [address] [place] [phone] Care Team Providers Care Note Taker Name Role Phone Torrey Kwok MD Primary Care Provider [phone] Encounter Details Date Type Department Care Team (Late st Contact Info) Description 06/20/2024 Lab Requisition [facility] - Main Lab 299 [facility] [employer] [place] [address] Torrey Kwok MD [address] [place] [address] Essential (primary) hypertension; Type 2 diabetes mellitus [...] LAB CHEMISTRY METHOD 06/20/2024 11:38 AM EDT [facility] Potassium 4.1 3.5 - 5.5 mmol/L LAB CHEMISTRY METHOD 06/20/2024 11:38 AM [facility] LAB [place] 104 96 - 110 mmol/L LAB CHEMISTRY METHOD 06/20/2024 11:38 AM [facility] LAB CO2 29 21 - 32 mmol/L LAB CHEMISTRY METHOD 06/20/2024 11:38 AM [facility] LAB Anion Gap 5 3 - 11 LAB CHEMISTRY METHOD 06/20/2024 11:38 AM [facility] Glucose 53(L) 70 - 100 mg/dL LAB CHEMISTRY METHOD 06/20/2024 11:38 AM [facility] BUN 39(H) 5 - 25 mg/dL LAB CHEMISTRY METHOD 06/20/2024 11:38 AM [facility] Creatinine 0.97 0.50 - 1.10 mg/dL LAB CHEMISTRY METHOD 06/20/2024 11:38 AM [facility] LAB eGFR 57(L) >=60 mL/min/1. 73m2 LAB CHEMISTRY METHOD 06/20/2024 11:38 AM [facility] LAB Comment:Calculation based on the??Chronic Kidney Disease Epidemiology Collaboration (CKD-EPI) equation refit??without adjustment for race. BUN/Creatinine Ratio 40.2 LAB CHEMISTRY METHOD 06/20/2024 11:38 AM [facility] Calcium 9.2 8.5 - 10.5 mg/dL LAB CHEMISTRY METHOD 06/20/2024 11:38 AM [facility] LAB Blood Venous blood specimen / Unknown Venipuncture / Unknown 06/20/2024 6:10 AM EDT 06/20/2024 10:40 AM EDT us Torrey Kwok MD LAB BLOOD ORDERABLES Final Resul t [facility] [address] [place] [address], [place] [phone] * (ABNORMAL) Complete blood count (06/20/2024 6:10 AM EDT) [facility] WBC 6.5 4.8 - 10.8 K/mcL LAB HEMETOLOGY METHOD 06/20/2024 11:08 AM [facility] RBC 3.70(L) 3.80 - 4.80 M/mcL LAB HEMETOLOGY METHOD 06/20/2024 11:08 AM [facility] LAB Hemoglobin 12.0 11.5 - 16.0 g/dL LAB HEMETOLOGY METHOD 06/20/2024 11:08 AM [facility] LAB Hematocrit 37.1 35.0 - 47.0 % LAB HEMETOLOGY METHOD 06/20/2024 11:08 AM [facility] LAB MCV 100.5(H) 79.0 - 98.0 FL LAB HEMETOLOGY METHOD 06/20/2024 11:08 AM [facility] LAB MCH 32.5(H) 27.0 - 32.0 pcg LAB HEMETOLOGY METHOD 06/20/2024 11:08 AM [facility] LAB MCHC 32.3 32.0 - 37.0 g/dL LAB HEMETOLOGY METHOD 06/20/2024 11:08 AM [facility] LAB RDW 18.3(H) 11.0 - 15.0 % LAB HEMETOLOGY METHOD 06/20/2024 11:08 AM [facility] LAB Platelets 313 130 - 400 K/mcL LAB HEMETOLOGY METHOD 06/20/2024 11:08 AM [facility] LAB MPV 10.8 7.0 - 11.0 FL LAB HEMETOLOGY METHOD 06/20/2024 11:08 AM [facility] LAB NRBC 0.0 <1.0 % LAB HEMETOLOGY METHOD 06/20/2024 11:08 AM EDT [facility] LAB NRBC Absolute 0.00 <0.10 K/mcL LAB HEMETOLOGY METHOD 06/20/2024 11:08 AM EDT [facility] LAB Blood Venous blood specimen / Unknown Venipuncture / Unknown 06/20/2024 6:10 AM EDT 06/20/2024 10:40 AM EDT Torrey Kwok MD LAB BLOOD ORDERABLES Final Resul t [facility] [address] [place] [address], documented in this encounter Visit Diagnoses Diagnosis Essential (primary) hypertension Unspecified essential hypertension Type 2 diabetes mellitus without complications documented in this encounter Care Teams Note Taker Relationship Specialty Start Date End Date Torrey Kwok MD [address] [place] [address] [address] [place] [address] PCP - General Geriatric Medicine 04/25/24 documented as of this encounter
--- OUTSIDE RECORDS SUMMARY | 2024-07-11 16:28 | XMS_ITS | Patient Health Record ---
Author Organization [facility] Address [address] [place] [address] Care Team Providers Care Poultry Packer Name Role Phone Po Monique HODGE Primary Care Provider John Moore Jr Unavailable [phone] Allergies Allergen (clinical drug ingredient) Drug/Non [...] Active Omeprazole 20 TAKE 1 CAPSULE BY [facility] TWICE DAILY for 90 days Active Immunizations Vaccine Route Administration Date Status Comme nts Influenza Unknown 02/08/2016 Administered Influenza Unknown 02/07/2018 Administered Problems Problem Type SNOMED Code ICD Code Onset Dates Problem Status W/U Status Risk Notes Problem 799515728 Gastro-esophagea l reflux disease without esophagitis (K21.9) Active confirmed Problem 47588636 Dysphagia, unspecified type (R13.10) Active confirmed Problem 599058834 Abnormal UGI series (R93.3) Active confirmed Problem 36718905 Hypertension, unspecified type (I10) Active confirmed Plan Of Treatment Pending Test Test Name Order Date XR GI SERIES 07/20/2016 Insurance Providers Payer Name Payer Address Payer Phone Subscriber Number Group Number Insured Name Patient Relationship to Insured Coverage Start Date Coverage End Date MEDICARE OF [place] [address] [place] [address] [id number] CHARLY SCHWATRZ Self - patient is the insured [employer] ATTN CLAIMS [address] [place] [address] [id number] CHARLY SCHWARTZ Self - patient is the insured Medical (General) History Medical History History ICD Code colonoscopy 03/25/2004 diabetes mellitus osteoporosis Hypothyroidism elevated cholesterol hypertension diverticulosis internal hemorrhoids congestive heart failure urinary incontinence-mild Surgical History Surgery Date(Month/Year) cholecystectomy knee surgery section left hip replacement right knee replacement cardioversion 12/2015
--- OUTSIDE RECORDS SUMMARY | 2024-07-11 16:28 | XMS_ITS | Encounter Summary ---
Author Organization [facility] Address [address] [place] [phone] Care Team Providers Care Entry Level Truck Driver Name Role Phone Torrey Kwok MD Primary Care Provider [phone] Encounter Details Date Type Department Care Team (Late st Contact Info) Description 05/30/2024 Lab Requisition [facility] - Main Lab 299 [facility] [place] [address] Torrey Kwok MD [address] [place] [address] Essential (primary) hypertension; Type 2 diabetes mellitus [...] LAB CHEMISTRY METHOD 05/30/2024 5:00 PM EST [facility] Potassium 3.6 3.5 - 5.5 mmol/L LAB CHEMISTRY METHOD 05/30/2024 5:00 PM [facility] LAB [place] 104 96 - 110 mmol/L LAB CHEMISTRY METHOD 05/30/2024 5:00 PM [facility] CO2 26 21 - 32 mmol/L LAB CHEMISTRY METHOD 05/30/2024 5:00 PM [facility] Anion Gap 9 3 - 11 LAB CHEMISTRY METHOD 05/30/2024 5:00 PM [facility] Glucose 81 70 - 100 mg/dL LAB CHEMISTRY METHOD 05/30/2024 5:00 PM [facility] BUN 31(H) 5 - 25 mg/dL LAB CHEMISTRY METHOD 05/30/2024 5:00 PM [facility] Creatinine 1.11(H) 0.50 - 1.10 mg/dL LAB CHEMISTRY METHOD 05/30/2024 5:00 PM [facility] LAB eGFR 48(L) >=60 mL/min/1. 73m2 LAB CHEMISTRY METHOD 05/30/2024 5:00 PM [facility] LAB Comment:Calculation based on the??Chronic Kidney Disease Epidemiology Collaboration (CKD-EPI) equation refit??without adjustment for race. BUN/Creatinine Ratio 27.9 LAB CHEMISTRY METHOD 05/30/2024 5:00 PM [facility] Calcium 8.8 8.5 - 10.5 mg/dL LAB CHEMISTRY METHOD 05/30/2024 5:00 PM [facility] Blood Venous blood specimen / Unknown Venipuncture / Unknown 05/30/2024 3:45 PM EST 05/30/2024 4:21 PM EST us Torrey Kwok MD LAB BLOOD ORDERABLES Final Resul t [facility] [address] [place] [address], * (ABNORMAL) Complete blood count (05/30/2024 3:45 PM EST) [facility] WBC 7.1 4.8 - 10.8 K/mcL LAB HEMETOLOGY METHOD 05/30/2024 4:35 PM [facility] RBC 3.20(L) 3.80 - 4.80 M/mcL LAB HEMETOLOGY METHOD 05/30/2024 4:35 PM [facility] Hemoglobin 10.3(L) 11.5 - 16.0 g/dL LAB HEMETOLOGY METHOD 05/30/2024 4:35 PM [facility] Hematocrit 32.0(L) 35.0 - 47.0 % LAB HEMETOLOGY METHOD 05/30/2024 4:35 PM [facility] MCV 100.0(H) 79.0 - 98.0 FL LAB HEMETOLOGY METHOD 05/30/2024 4:35 PM [facility] MCH 32.2(H) 27.0 - 32.0 pcg LAB HEMETOLOGY METHOD 05/30/2024 4:35 PM [facility] MCHC 32.2 32.0 - 37.0 g/dL LAB HEMETOLOGY METHOD 05/30/2024 4:35 PM [facility] RDW 18.3(H) 11.0 - 15.0 % LAB HEMETOLOGY METHOD 05/30/2024 4:35 PM [facility] Platelets 319 130 - 400 K/mcL LAB HEMETOLOGY METHOD 05/30/2024 4:35 PM [facility] MPV 10.1 7.0 - 11.0 FL LAB HEMETOLOGY METHOD 05/30/2024 4:35 PM [facility] NRBC 0.0 <1.0 % LAB HEMETOLOGY METHOD 05/30/2024 4:35 PM [facility] NRBC Absolute 0.00 <0.10 K/mcL LAB HEMETOLOGY METHOD 05/30/2024 4:35 PM EST [facility] Blood Venous blood specimen / Unknown Venipuncture / Unknown 05/30/2024 3:45 PM EST 05/30/2024 4:21 PM EST Torrey Kwok MD LAB BLOOD ORDERABLES Final Resul t [facility] [address] [place] [address], documented in this encounter Visit Diagnoses Diagnosis Essential (primary) hypertension Unspecified essential hypertension Type 2 diabetes mellitus without complications documented in this encounter Care Teams Entry Level Truck Driver Relationship Specialty Start Date End Date Torrey Kwok MD [address] [place] [address] [address] [place] [address] PCP - General Geriatric Medicine 04/25/24 documented as of this encounter
--- OUTSIDE RECORDS SUMMARY | 2024-07-11 16:28 | XMS_ITS | Encounter Summary ---
Author Organization [facility] Address [address] [place] [phone] Care Team Providers Care Senior Loan Officer Name Role Phone Torrey Kwok MD Primary Care Provider [phone] Encounter Details Date Type Department Care Team (Late st Contact Info) Description 04/25/2024 Lab Requisition [facility] - Main Lab 299 [facility] [place] [address] Torrey Kwok MD [address] [place], [place] [id number] Vitamin D deficiency, unspecified; Type 2 diabetes [...] LAB CHEMISTRY METHOD 04/25/2024 10:35 AM EST [facility] LAB Blood Venous blood specimen / Unknown Venipuncture / Unknown 04/25/2024 5:49 AM EST 04/25/2024 9:21 AM EST us Torrey Kwok MD LAB BLOOD ORDERABLES Final Resul t [facility] [address] [place] [address], [place] [phone] * Thyroid stimulating hormone (04/25/2024 5:49 AM EST) TSH 3.04 0.40 - 4.00 mcIU/mL LAB CHEMISTRY METHOD 04/25/2024 10:35 AM EST [facility] Blood Venous blood specimen / Unknown Venipuncture / Unknown 04/25/2024 5:49 AM EST 04/25/2024 9:21 AM EST us Torrey Kwok MD LAB BLOOD ORDERABLES Final Resul t [facility] [address] [place] [address], [place] [phone] * Folate (04/25/2024 5:49 AM EST) Folate 12.8 2.8 - 17.0 ng/ml LAB CHEMISTRY METHOD 04/25/2024 11:26 AM EST [facility] Blood Venous blood specimen / Unknown Venipuncture / Unknown 04/25/2024 5:49 AM EST 04/25/2024 9:21 AM EST us Torrey Kwok MD LAB BLOOD ORDERABLES Final Resul t [facility] [address] [place] [address], [place] [phone] * Vitamin B12 (04/25/2024 5:49 AM EST) Vitamin B-12 711 250 - 900 pcg/mL LAB CHEMISTRY METHOD 04/25/2024 11:26 AM EST [facility] Blood Venous blood specimen / Unknown Venipuncture / Unknown 04/25/2024 5:49 AM EST 04/25/2024 9:21 AM EST us Torrey Kwok MD LAB BLOOD ORDERABLES Final Resul t Performing Organization Address City/[facility]/ZIP Co de Phone Number [facility] [address] [place] [address], [place] [phone] * (ABNORMAL) Hemoglobin A1c (04/25/2024 5:49 AM EST) Pathologist [facility] Hemoglobin A1C 8.7(H) <6.5 % LAB CHEMISTRY METHOD 04/25/2024 1:33 PM EST [facility] Mean Bld Glu Estim. 203 mg/dL LAB CHEMISTRY METHOD 04/25/2024 1:33 PM [facility] Blood Venous blood specimen / Unknown Venipuncture / Unknown 04/25/2024 5:49 AM EST 04/25/2024 9:21 AM EST us Torrey Kwok MD LAB BLOOD ORDERABLES Final Resul t Performing Organization Address City/[facility]/ZIP Co de Phone Number [facility] [address] [place] [address], [place] [phone] * (ABNORMAL) Comprehensive metabolic panel (04/25/2024 5:49 AM EST) [facility] Sodium 135 133 - 145 mmol/L LAB CHEMISTRY METHOD 04/25/2024 11:26 AM [facility] Potassium 4.0 3.5 - 5.5 mmol/L LAB CHEMISTRY METHOD 04/25/2024 11:26 AM [facility] [place] 98 96 - 110 mmol/L LAB CHEMISTRY METHOD 04/25/2024 11:26 AM [facility] CO2 30 21 - 32 mmol/L LAB CHEMISTRY METHOD 04/25/2024 11:26 AM [facility] Anion Gap 7 3 - 11 LAB CHEMISTRY METHOD 04/25/2024 11:26 AM [facility] Glucose 290(H) 70 - 100 mg/dL LAB CHEMISTRY METHOD 04/25/2024 11:26 AM [facility] BUN 25 5 - 25 mg/dL LAB CHEMISTRY METHOD 04/25/2024 11:26 AM [facility] Creatinine 1.06 0.50 - 1.10 mg/dL LAB CHEMISTRY METHOD 04/25/2024 11:26 AM [facility] LAB eGFR 51(L) >=60 mL/min/1. 73m2 LAB CHEMISTRY METHOD 04/25/2024 11:26 AM [facility] LAB Comment:Calculation based on the??Chronic Kidney Disease Epidemiology Collaboration (CKD-EPI) equation refit??without adjustment for race. BUN/Creatinine Ratio 23.6 LAB CHEMISTRY METHOD 04/25/2024 11:26 AM [facility] Calcium 8.2(L) 8.5 - 10.5 mg/dL LAB CHEMISTRY METHOD 04/25/2024 11:26 AM [facility] AST (SGOT) 17 10 - 42 unit/L LAB CHEMISTRY METHOD 04/25/2024 11:26 AM [facility] ALT (SGPT) 16 10 - 60 unit/L LAB CHEMISTRY METHOD 04/25/2024 11:26 AM [facility] Alkaline Phosphatase 81 42 - 121 unit/L LAB CHEMISTRY METHOD 04/25/2024 11:26 AM [facility] Total Protein 5.3(L) 6.0 - 8.0 g/dL LAB CHEMISTRY METHOD 04/25/2024 11:26 AM [facility] Albumin 2.7(L) 3.2 - 5.0 g/dL LAB CHEMISTRY METHOD 04/25/2024 11:26 AM [facility] Total Bilirubin 1.2 0.0 - 1.4 mg/dL LAB CHEMISTRY METHOD 04/25/2024 11:26 AM [facility] Blood Venous blood specimen / Unknown Venipuncture / Unknown 04/25/2024 5:49 AM EST 04/25/2024 9:21 AM EST us Torrey Kwok MD LAB BLOOD ORDERABLES Final Resul t [facility] [address] [place] [address], * (ABNORMAL) Complete blood count (04/25/2024 5:49 AM EST) WBC 7.7 4.8 - 10.8 K/mcL LAB HEMETOLOGY METHOD 04/25/2024 10:07 AM [facility] RBC 2.90(L) 3.80 - 4.80 M/mcL LAB HEMETOLOGY METHOD 04/25/2024 10:07 AM [facility] Hemoglobin 9.1(L) 11.5 - 16.0 g/dL LAB HEMETOLOGY METHOD 04/25/2024 10:07 AM [facility] Hematocrit 27.7(L) 35.0 - 47.0 % LAB HEMETOLOGY METHOD 04/25/2024 10:07 AM [facility] MCV 94.9 79.0 - 98.0 FL LAB HEMETOLOGY METHOD 04/25/2024 10:07 AM [facility] MCH 31.2 27.0 - 32.0 pcg LAB HEMETOLOGY METHOD 04/25/2024 10:07 AM [facility] MCHC 32.9 32.0 - 37.0 g/dL LAB HEMETOLOGY METHOD 04/25/2024 10:07 AM [facility] RDW 15.5(H) 11.0 - 15.0 % LAB HEMETOLOGY METHOD 04/25/2024 10:07 AM [facility] Platelets 214 130 - 400 K/mcL LAB HEMETOLOGY METHOD 04/25/2024 10:07 AM [facility] MPV 10.8 7.0 - 11.0 FL LAB HEMETOLOGY METHOD 04/25/2024 10:07 AM EST [facility] NRBC 0.0 <1.0 % LAB HEMETOLOGY METHOD 04/25/2024 10:07 AM EST [facility] NRBC Absolute 0.00 <0.10 K/mcL LAB HEMETOLOGY METHOD 04/25/2024 10:07 AM EST [facility] Blood Venous blood specimen / Unknown Venipuncture / Unknown 04/25/2024 5:49 AM EST 04/25/2024 9:21 AM EST Torrey Kwok MD LAB BLOOD ORDERABLES Final Resul t [facility] [address] [place] [address], documented in this encounter Visit Diagnoses Diagnosis Vitamin D deficiency, unspecified 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
--- OUTSIDE RECORDS SUMMARY | 2024-07-11 16:28 | XMS_ITS | Encounter Summary ---
Author Organization [facility] Address [address] [place] [phone] Care Team Providers Care Assembly Line Machine Operator Name Role Phone Torrey Kwok MD Primary Care Provider [phone] Encounter Details Date Type Department Care Team (Late st Contact Info) Description 05/09/2024 Lab Requisition [facility] - Main Lab 299 [facility] [place] [address] Torrey Kwok MD [address] [place], [place] [id number] Type 2 diabetes mellitus with unspecified diabetic [...] mmol/L LAB CHEMISTRY METHOD 05/12/2024 1:22 PM [facility] Potassium 3.5 3.5 - 5.5 mmol/L LAB CHEMISTRY METHOD 05/12/2024 1:22 PM [facility] [place] 98 96 - 110 mmol/L LAB CHEMISTRY METHOD 05/12/2024 1:22 PM [facility] CO2 30 21 - 32 mmol/L LAB CHEMISTRY METHOD 05/12/2024 1:22 PM [facility] Anion Gap 7 3 - 11 LAB CHEMISTRY METHOD 05/12/2024 1:22 PM [facility] Glucose 219(H) 70 - 100 mg/dL LAB CHEMISTRY METHOD 05/12/2024 1:22 PM [facility] BUN 28(H) 5 - 25 mg/dL LAB CHEMISTRY METHOD 05/12/2024 1:22 PM [facility] Creatinine 0.97 0.50 - 1.10 mg/dL LAB CHEMISTRY METHOD 05/12/2024 1:22 PM [facility] LAB eGFR 57(L) >=60 mL/min/1. 73m2 LAB CHEMISTRY METHOD 05/12/2024 1:22 PM [facility] Comment:Calculation based on the??Chronic Kidney Disease Epidemiology Collaboration (CKD-EPI) equation refit??without adjustment for race. BUN/Creatinine Ratio 28.9 LAB CHEMISTRY METHOD 05/12/2024 1:22 PM [facility] Calcium 8.6 8.5 - 10.5 mg/dL LAB CHEMISTRY METHOD 05/12/2024 1:22 PM [facility] Blood Venous blood specimen / Unknown 05/12/2024 5:48 AM EST 05/12/2024 11:28 AM EST us Torrey Kwok MD LAB BLOOD ORDERABLES Final Resul t [facility] [address] [place] [address], [place] [phone] * (ABNORMAL) Complete blood count (05/12/2024 5:48 AM EST) WBC 7.5 4.8 - 10.8 K/mcL LAB HEMETOLOGY METHOD 05/12/2024 12:44 PM [facility] RBC 3.30(L) 3.80 - 4.80 M/mcL LAB HEMETOLOGY METHOD 05/12/2024 12:44 PM [facility] Hemoglobin 10.5(L) 11.5 - 16.0 g/dL LAB HEMETOLOGY METHOD 05/12/2024 12:44 PM [facility] Hematocrit 33.5(L) 35.0 - 47.0 % LAB HEMETOLOGY METHOD 05/12/2024 12:44 PM [facility] MCV 100.9(H) 79.0 - 98.0 FL LAB HEMETOLOGY METHOD 05/12/2024 12:44 PM [facility] MCH 31.6 27.0 - 32.0 pcg LAB HEMETOLOGY METHOD 05/12/2024 12:44 PM [facility] MCHC 31.3(L) 32.0 - 37.0 g/dL LAB HEMETOLOGY METHOD 05/12/2024 12:44 PM [facility] RDW 20.0(H) 11.0 - 15.0 % LAB HEMETOLOGY METHOD 05/12/2024 12:44 PM [facility] Platelets 386 130 - 400 K/mcL LAB HEMETOLOGY METHOD 05/12/2024 12:44 PM [facility] MPV 10.3 7.0 - 11.0 FL LAB HEMETOLOGY METHOD 05/12/2024 12:44 PM EST [facility] NRBC 0.0 <1.0 % LAB HEMETOLOGY METHOD 05/12/2024 12:44 PM EST [facility] NRBC Absolute 0.00 <0.10 K/mcL LAB HEMETOLOGY METHOD 05/12/2024 12:44 PM EST [facility] Blood Venous blood specimen / Unknown 05/12/2024 5:48 AM EST 05/12/2024 11:25 AM EST Torrey Kwok MD LAB BLOOD ORDERABLES Final Resul t [facility] [address] [place] [address], documented in this encounter Visit Diagnoses Diagnosis 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
--- OUTSIDE RECORDS SUMMARY | 2024-07-11 16:28 | XMS_ITS | Encounter Summary ---
Author Organization [facility] Address [address] [place] [phone] Care Team Providers Care Gauger Delivery Name Role Phone Torrey Kwok MD Primary Care Provider [phone] Encounter Details Date Type Department Care Team (Late st Contact Info) Description 05/09/[address] [facility] - Main Lab 299 [facility] [place] [address] Torrey Kwok MD [address] [place], [place] [id number] Type 2 diabetes mellitus with unspecified diabetic [...] (CMS/HCC) documented in this encounter Care Teams Gauger Delivery Relationship Specialty Start Date End Date Torrey Kwok MD [address] [place], [place] [phone] PCP - General Geriatric Medicine 04/25/24 documented as of this encounter
--- OUTSIDE RECORDS SUMMARY | 2024-07-11 16:28 | XMS_ITS | Encounter Summary ---
Author Organization [facility] Address [address] [place] [phone] Care Team Providers Care Hybrid Car Mechanic Name Role Phone Torrey Kwok MD Primary Care Provider [phone] Encounter Details Date Type Department Care Team (Late st Contact Info) Description 06/07/2024 Lab Requisition [facility] - Main Lab 299 [facility] [place] [address] Torrey Kwok MD [address] [place], [place] [phone] Type 2 diabetes mellitus with diabetic chronic [...] [facility] [address] [place] [address], [place] [phone] * (ABNORMAL) Complete blood count (06/09/2024 6:45 [...] LAB HEMETOLOGY METHOD 06/09/2024 1:30 PM EST [facility] NRBC 0.0 <1.0 % LAB HEMETOLOGY METHOD 06/09/2024 1:30 PM EST [facility] NRBC Absolute 0.00 <0.10 K/mcL LAB HEMETOLOGY METHOD 06/09/2024 1:30 PM EST [facility] Blood Venous blood specimen / Unknown Venipuncture / Unknown 06/09/2024 6:45 AM EST 06/09/2024 11:22 AM EST Torrey Kwok MD LAB BLOOD ORDERABLES Final Resul t [facility] [address] [place] [address], documented in this encounter Visit Diagnoses Diagnosis Type 2 diabetes mellitus with diabetic chronic kidney disease (CMS/HCC) Essential (primary) hypertension Unspecified essential hypertension Heart failure, unspecified (CMS/HCC) Heart failure, unspecified 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
--- OUTSIDE RECORDS SUMMARY | 2024-07-11 16:28 | XMS_ITS | Encounter Summary ---
Author Organization [facility] Address [address] [place] [address] Care Team Providers Care Cafe Cook Name Role Phone Torrey Kwok MD Primary Care Provider [phone] Encounter Details Date Type Department Care Team (Late st Contact Info) Description 05/01/2024 Lab Requisition [facility] - Main Lab [address] [facility] [employer] [address] Torrey Kwok MD [address] [place] [address] Type 2 diabetes mellitus without complications (CMS/HCC) [...] LAB CHEMISTRY METHOD 05/01/2024 9:17 AM EST [facility] Potassium 4.0 3.5 - 5.5 mmol/L LAB CHEMISTRY METHOD 05/01/2024 9:17 AM EST [facility] Chloride 97 96 - 110 mmol/L LAB CHEMISTRY METHOD 05/01/2024 9:17 AM [facility] CO2 29 21 [...] t [facility] [address] [place] [address], documented in this encounter Visit Diagnoses Diagnosis Type 2 diabetes mellitus without complications documented in this encounter Care Teams Cafe Cook Relationship Specialty Start Date End Date Torrey Kwok MD [address] [place] [address] [address] [place] [address] PCP - General Geriatric Medicine 04/25/24 documented as of this encounter
--- OUTSIDE RECORDS SUMMARY | 2024-07-11 16:28 | XMS_ITS | Encounter Summary ---
Author Organization [facility] Address [address] [place] [address] Care Team Providers Care Duck Bill Operator Name Role Phone Torrey Kwok MD Primary Care Provider [phone] Encounter Details Date Type Department Care Team (Late st Contact Info) Description 07/11/2024 Lab Requisition [facility] - Main Lab 299 [facility] [place] [address] Torrey Kwok MD [address] [place] [address] Chronic kidney disease, stage 3 unspecified (CMS/HCC) [...] encounter Results * (ABNORMAL) Basic metabolic panel (07/11/2024 6:58 AM EDT) Sodium 135 133 - 145 mmol/L LAB CHEMISTRY METHOD 07/11/2024 12:06 PM EDT [facility] Potassium 4.3 3.5 - 5.5 mmol/L LAB CHEMISTRY METHOD 07/11/2024 12:06 PM EDT [facility] Chloride 101 96 - 110 mmol/L LAB CHEMISTRY METHOD 07/11/2024 12:[address] [facility] CO2 26 21 - 32 mmol/L LAB CHEMISTRY METHOD 07/11/2024 12:[address] [facility] Anion Gap 8 3 - 11 LAB CHEMISTRY METHOD 07/11/2024 12:[address] [facility] Glucose 216(H) 70 - 100 mg/dL LAB CHEMISTRY METHOD 07/11/2024 12:[address] [facility] BUN 45(H) 5 - 25 mg/dL LAB CHEMISTRY METHOD 07/11/2024 12:[address] [facility] Creatinine 1.38(H) 0.50 - 1.10 mg/dL LAB CHEMISTRY METHOD 07/11/2024 12:[address] [facility] eGFR 37(L) >=60 mL/min/1. 73m2 LAB CHEMISTRY METHOD 07/11/2024 12:[address] [facility] Comment:Calculation based on the??Chronic Kidney Disease Epidemiology Collaboration (CKD-EPI) equation refit??without adjustment for race. BUN/Creatinine Ratio 32.6 LAB CHEMISTRY METHOD 07/11/2024 12:[address] [facility] Calcium 8.8 8.5 - 10.5 mg/dL LAB CHEMISTRY METHOD 07/11/2024 12:[address] [facility] Blood Venous blood specimen / Unknown Venipuncture / Unknown 07/11/2024 6:58 AM EDT 07/11/2024 10:53 AM EDT us Torrey Kwok MD LAB BLOOD ORDERABLES Final Resul t [facility] [address] [place] [address], documented in this encounter Visit Diagnoses Diagnosis Chronic kidney disease, stage 3 unspecified (CMS/HCC) documented in this encounter Care Teams Duck Bill Operator Relationship Specialty Start Date End Date Torrey Kwok MD [address] [place] [address] [address] [place] [address] PCP - General Geriatric Medicine 04/25/24 documented as of this encounter
--- OUTSIDE RECORDS SUMMARY | 2024-07-11 16:28 | XMS_ITS | Encounter Summary ---
Author Organization [facility] Address [address] [place] [phone] Care Team Providers Care Observation Assistant Name Role Phone Torrey Kwok MD Primary Care Provider [phone] Encounter Details Date Type Department Care Team (Late st Contact Info) Description 05/31/2024 Lab Requisition [facility] - Main Lab 299 [facility] [address] Torrey Kwok MD [address] [place], [place] [id number] Type 2 diabetes mellitus with diabetic chronic [...] mmol/L LAB CHEMISTRY METHOD 06/02/2024 1:18 PM [facility] Potassium 3.7 3.5 - 5.5 mmol/L LAB CHEMISTRY METHOD 06/02/2024 1:18 PM [facility] Chloride 94(L) 96 - 110 mmol/L LAB CHEMISTRY METHOD 06/02/2024 1:18 PM [facility] CO2 27 21 - 32 mmol/L LAB CHEMISTRY METHOD 06/02/2024 1:18 PM [facility] Anion Gap 12(H) 3 - 11 LAB CHEMISTRY METHOD 06/02/2024 1:18 PM [facility] Glucose 464(HH) 70 - 100 mg/dL LAB CHEMISTRY METHOD 06/02/2024 1:18 PM [facility] BUN 34(H) 5 - 25 mg/dL LAB CHEMISTRY METHOD 06/02/2024 1:18 PM [facility] Creatinine 1.18(H) 0.50 - 1.10 mg/dL LAB CHEMISTRY METHOD 06/02/2024 1:18 PM [facility] eGFR 45(L) >=60 mL/min/1. 73m2 LAB CHEMISTRY METHOD 06/02/2024 1:18 PM [facility] Comment:Calculation based on the??Chronic Kidney Disease Epidemiology Collaboration (CKD-EPI) equation refit??without adjustment for race. BUN/Creatinine Ratio 28.8 LAB CHEMISTRY METHOD 06/02/2024 1:18 PM [facility] Calcium 9.0 8.5 - 10.5 mg/dL LAB CHEMISTRY METHOD 06/02/2024 1:18 PM [facility] Blood Venous blood specimen / Unknown Venipuncture / Unknown 06/02/2024 5:33 AM EST 06/02/2024 10:52 AM EST us Torrey Kwok MD LAB BLOOD ORDERABLES Final Resul t [facility] [address] [place] [address], [place] [phone] * (ABNORMAL) Complete blood count (06/02/2024 5:33 AM EST) WBC 9.9 4.8 - 10.8 K/mcL LAB HEMETOLOGY METHOD 06/02/2024 2:00 PM [facility] RBC 3.70(L) 3.80 - 4.80 M/mcL LAB HEMETOLOGY METHOD 06/02/2024 2:00 PM [facility] Hemoglobin 11.5 11.5 - 16.0 g/dL LAB HEMETOLOGY METHOD 06/02/2024 2:00 PM [facility] Hematocrit 37.8 35.0 - 47.0 % LAB HEMETOLOGY METHOD 06/02/2024 2:00 PM [facility] MCV 103.6(H) 79.0 - 98.0 FL LAB HEMETOLOGY METHOD 06/02/2024 2:00 PM [facility] MCH 31.5 27.0 - 32.0 pcg LAB HEMETOLOGY METHOD 06/02/2024 2:00 PM [facility] MCHC 30.4(L) 32.0 - 37.0 g/dL LAB HEMETOLOGY METHOD 06/02/2024 2:00 PM [facility] RDW 18.5(H) 11.0 - 15.0 % LAB HEMETOLOGY METHOD 06/02/2024 2:00 PM [facility] Platelets 365 130 - 400 K/mcL LAB HEMETOLOGY METHOD 06/02/2024 2:00 PM [facility] MPV 10.4 7.0 - 11.0 FL LAB HEMETOLOGY METHOD 06/02/2024 2:00 PM EST [facility] NRBC 0.0 <1.0 % LAB HEMETOLOGY METHOD 06/02/2024 2:00 PM EST [facility] NRBC Absolute 0.00 <0.10 K/mcL LAB HEMETOLOGY METHOD 06/02/2024 2:00 PM EST [facility] Blood Venous blood specimen / Unknown Venipuncture / Unknown 06/02/2024 5:33 AM EST 06/02/2024 10:52 AM EST Torrey Kwok MD LAB BLOOD ORDERABLES Final Resul t [facility] [address] [place] [address], documented in this encounter Visit Diagnoses Diagnosis Type 2 diabetes mellitus with diabetic chronic kidney disease (CMS/HCC) Essential (primary) hypertension Unspecified essential hypertension Heart failure, unspecified (CMS/HCC) Heart failure, unspecified 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) documented in this encounter Care Teams Observation Assistant Relationship Specialty Start Date End Date Torrey Kwok MD [address] [place], [place] [id number] [place] [address] PCP - General Geriatric Medicine 04/25/24 documented as of this encounter
--- OUTSIDE RECORDS SUMMARY | 2024-07-11 16:28 | XMS_ITS | Encounter Summary ---
Author Organization [facility] Address [address] [place] [address] Care Team Providers Care Assembler For Puller Over Hand Name Role Phone Torrey Kwok MD Primary Care Provider [phone] Encounter Details Date Type Department Care Team (Late st Contact Info) Description 05/05/2024 Lab Requisition [facility] - Main Lab 299 [facility] [place] [address] Torrey Kwok MD [address] [place] [address] Chronic kidney disease, stage 3 unspecified (CMS/HCC); [...] mmol/L LAB CHEMISTRY METHOD 05/05/2024 2:05 PM [facility] Comment:Hemolysis present Chloride 99 96 - 110 mmol/L LAB CHEMISTRY METHOD 05/05/2024 2:05 PM [facility] CO2 26 21 - 32 mmol/L LAB CHEMISTRY METHOD 05/05/2024 2:05 PM [facility] Anion Gap 9 3 - 11 LAB CHEMISTRY METHOD 05/05/2024 2:05 PM [facility] Glucose 141(H) 70 - 100 mg/dL LAB CHEMISTRY METHOD 05/05/2024 2:05 PM [facility] BUN 23 5 - 25 mg/dL LAB CHEMISTRY METHOD 05/05/2024 2:05 PM [facility] Creatinine 1.08 0.50 - 1.10 mg/dL LAB CHEMISTRY METHOD 05/05/2024 2:05 PM [facility] eGFR 50(L) >=60 mL/min/1. 73m2 LAB CHEMISTRY METHOD 05/05/2024 2:05 PM [facility] Comment:Calculation based on the??Chronic Kidney Disease Epidemiology Collaboration (CKD-EPI) equation refit??without adjustment for race. BUN/Creatinine Ratio 21.3 LAB CHEMISTRY METHOD 05/05/2024 2:05 PM [facility] Calcium 8.3(L) 8.5 - 10.5 mg/dL LAB CHEMISTRY METHOD 05/05/2024 2:05 PM [facility] Blood Venous blood specimen / Unknown Venipuncture / Unknown 05/05/2024 5:43 AM EST 05/05/2024 11:40 AM EST us Torrey Kwok MD LAB BLOOD ORDERABLES Final Resul t [facility] [address] [place] [address], documented in this encounter Visit Diagnoses Diagnosis Chronic kidney disease, stage 3 unspecified (CMS/HCC) Type 2 diabetes mellitus with diabetic chronic kidney disease (CMS/[facility]) documented in this encounter Care Teams Assembler For Puller Over Hand Relationship Specialty Start Date End Date Torrey Kwok MD [address] [place] [address] [address] [place] [address] PCP - General Geriatric Medicine 04/25/24 documented as of this encounter
--- OUTSIDE RECORDS SUMMARY | 2024-07-11 16:29 | XMS_ITS ---
Author Organization [facility] Address [address] [place] [address] Care Team Providers Care Home Improvement Contractor Name Role Phone Monique White Primary Care Provider Arturo Brown [phone] REASON FOR VISIT Cancel Encounters Encounter Location Date Provider Diagnosis [address] [address] 05/05/2024 Arturo Simon Plan Of Treatment Next Appt Details Provider Name:Arturo Simon , 08/15/2024 10:15:00 AM, [address] [place], [address], Progress Notes * Gerri SCHWARTZ RDOB:[birth year] (88 yo F)Acc No.[id number]:05/05/2024 Patient:?Gerri SCHWARTZ :1935???Age:88 Y???Sex:Female Address:[place], [address] * true * Date:? Generated for Printi dontae/Lee/eTransmitting on:?07/11/2024 04:28 PM EDT
--- OUTSIDE RECORDS SUMMARY | 2024-07-11 16:29 | XMS_ITS ---
Author Organization [facility] Address [address] [place] [address] Care Team Providers Care Mgmt Analyst Name Role Phone Monique White Primary Care Provider Arturo Brown Unavailable [phone] Encounters Encounter Location Date Provider Diagnosis [address] [address] 05/06/2024 Arturo Simon Plan Of Treatment Next Appt Details Provider Name:Arturo Simon , 08/15/2024 10:15:00 AM, [address] [place], [address], Progress Notes * Gerri SCHWARTZ RDOB:[birth year] (88 yo F)Acc No.[id number]:05/06/2024 Progress Note Patient:?Gerri SCHWARTZ R Provider:?Arturo Simon DPM :1935???Age:88 Y???Sex:Female D ate:05/06/2024 Address:[id number] Pcp:Monique White Subjective: * Chief Complaints: * ??? * Medical History:? Objective: * Vitals:? Assessment: Plan: * Treatment: * Images: * The named appointment provid er may or may not be the originator of this progress note, and it is not deemed complete until electronically signed by the appointment provider. Sign off status: Pending * Provider:?Arturo Simon DPM Date:?2024 Generated for Awilda diggs/Lee/Nilay on:?07/11/2024 09:42 AM EDT
--- OUTSIDE RECORDS SUMMARY | 2024-07-11 16:29 | XMS_ITS | Encounter Summary ---
Author Organization [facility] Address [address] [place] [address] Care Team Providers Care Soldering Machine Operator Automatic Name Role Phone Torrey Kwok MD Primary Care Provider [phone] Encounter Details Date Type Department Care Team (Late st Contact Info) Description 06/21/2024 Lab Requisition [facility] - Main Lab 299 [facility] [place] [address] Torrey Kwok MD [address] [place], [place] [id number] Type 2 diabetes mellitus with diabetic chronic [...] stimulating hormone (06/23/2024 5:47 AM EDT) Pathologist [facility] TSH 21.48(H) 0.40 - 4.00 mcIU/mL LAB CHEMISTRY METHOD 06/23/2024 1:59 PM EDT [facility] Blood Venous blood specimen / Unknown Venipuncture / Unknown 06/23/2024 5:47 AM EDT 06/23/2024 11:30 AM EDT Trorey Kwok MD LAB BLOOD ORDERABLES Final Resul t [facility] [address] [place] [address], [place] [phone] * (ABNORMAL) Basic metabolic panel (06/23/2024 5:47 AM EDT) [facility] Sodium 137 133 - 145 mmol/L LAB CHEMISTRY METHOD 06/23/2024 1:47 PM [facility] Potassium 3.9 3.5 - 5.5 mmol/L LAB CHEMISTRY METHOD 06/23/2024 1:47 PM [facility] Chloride 102 96 - 110 mmol/L LAB CHEMISTRY METHOD 06/23/2024 1:47 PM T [facility] CO2 30 21 - 32 mmol/L LAB CHEMISTRY METHOD 06/23/2024 1:47 PM [facility] Anion Gap 5 3 - 11 LAB CHEMISTRY METHOD 06/23/2024 1:47 PM [facility] Glucose 70 70 - 100 mg/dL LAB CHEMISTRY METHOD 06/23/2024 1:47 PM [facility] BUN 33(H) 5 - 25 mg/dL LAB CHEMISTRY METHOD 06/23/2024 1:47 PM T [facility] Creatinine 0.86 0.50 - 1.10 mg/dL LAB CHEMISTRY METHOD 06/23/2024 1:47 PM EDT [facility] eGFR 65 >=60 mL/min/1. 73m2 LAB CHEMISTRY METHOD 06/23/2024 1:47 PM EDT [facility] Comment:Calculation based on the??Chronic Kidney Disease Epidemiology Collaboration (CKD-EPI) equation refit??without adjustment for race. BUN/Creatinine Ratio 38.4 LAB CHEMISTRY METHOD 06/23/2024 1:47 PM EDT [facility] Calcium 8.7 8.5 - 10.5 mg/dL LAB CHEMISTRY METHOD 06/23/2024 1:47 PM EDT [facility] Blood Venous blood specimen / Unknown Venipuncture / Unknown 06/23/2024 5:47 AM EDT 06/23/2024 11:30 AM EDT us Torrey Kwok MD LAB BLOOD ORDERABLES Final Resul t [facility] [address] [place] [address], * (ABNORMAL) Complete blood count (06/23/2024 5:47 AM EDT) WBC 5.9 4.8 - 10.8 K/mcL LAB HEMETOLOGY METHOD 06/23/2024 12:35 PM EDT [facility] RBC 3.00(L) 3.80 - 4.80 M/mcL LAB HEMETOLOGY METHOD 06/23/2024 12:35 PM EDT [facility] Hemoglobin 9.6(L) 11.5 - 16.0 g/dL LAB HEMETOLOGY METHOD 06/23/2024 12:35 PM EDT [facility] Hematocrit 31.2(L) 35.0 - 47.0 % LAB HEMETOLOGY METHOD 06/23/2024 12:35 PM EDT [facility] MCV 103.3(H) 79.0 - 98.0 FL LAB HEMETOLOGY METHOD 06/23/2024 12:35 PM EDT [facility] MCH 31.8 27.0 - 32.0 pcg LAB HEMETOLOGY METHOD 06/23/2024 12:35 PM EDT [facility] MCHC 30.8(L) 32.0 - 37.0 g/dL LAB HEMETOLOGY METHOD 06/23/2024 12:35 PM EDT [facility] RDW 18.7(H) 11.0 - 15.0 % LAB HEMETOLOGY METHOD 06/23/2024 12:35 PM EDT [facility] Platelets 244 130 - 400 K/mcL LAB HEMETOLOGY METHOD 06/23/2024 12:35 PM EDT [facility] MPV 11.0 7.0 - 11.0 FL LAB HEMETOLOGY METHOD 06/23/2024 12:35 PM EDT [facility] NRBC 0.0 <1.0 % LAB HEMETOLOGY METHOD 06/23/2024 12:35 PM EDT [facility] NRBC Absolute 0.00 <0.10 K/mcL LAB HEMETOLOGY METHOD 06/23/2024 12:35 PM EDT [facility] Blood Venous blood specimen / Unknown Venipuncture / Unknown 06/23/2024 5:47 AM EDT 06/23/2024 11:30 AM EDT us Torrey Kwok MD LAB BLOOD ORDERABLES Final Resul t [facility] [address] [place] [address], documented in this encounter Visit Diagnoses Diagnosis Type 2 diabetes mellitus with diabetic chronic kidney disease (CMS/HCC) Essential (primary) hypertension Unspecified essential hypertension Heart failure, unspecified (CMS/HCC) Heart failure, unspecified documented in this encounter Care Teams Soldering Machine Operator Automatic Relationship Specialty Start Date End Date Torrey Kwok MD [address] [place] [address] [address] [place] [address] PCP - General Geriatric Medicine 04/25/24 documented as of this encounter
[2024-07-11 16:52] VITALS: BP 160/68; PULSE 70; RESP 19; TEMP 36.8; O2SAT 98
[2024-07-11 17:21] LABS: Lactic Acid 1.2 mmol/L (0.5-2.0)
[2024-07-11] MEDS: cefTRIAXone sodium 1 GM VIAL IVPUSH (18:51)
[2024-07-11] MEDS: Doxycycline Hyclate 100 MG in 0.9 % Sodium Chloride 250 ML 166.67 MG IV (18:52)
[2024-07-11] MEDS: Furosemide 20 MG/2 ML VIAL IVPUSH (18:52)
--- NOTE | 2024-07-11 19:11 | P.HPHOSP_ITS ---
History of Present Illness Date of Service: 07/11/24 Attending physician on admission: Asia Polk Chief Complaint: AMS Patient is an 88-year-old female currently residing at [facility] status post a right hip repair 2-1/2 months prior has past medical history of hypertension, UTI, hyperlipidemia, atrial fibrillation on anticoagulation, dementia not formally diagnosed, systolic and diastolic heart failure, hypothyroidism, insulin-dependent diabetes mellitus, chronic constipation on lactulose, dry macular degeneration, and JADYN not on CPAP presents to the emergency room department secondary to profound altered mental status with a level of somnolence and suspected CHF overload. Workup in the emergency room identified evidence of CHF exacerbation with pulmonary edema and bilateral pleural effusions and a CT scan of the chest was also completed due to suspicion for pneumonia and a bilateral lower lobe pneumonia was found. All viral studies were negative. Patient's lactic acid is 1.2, CRP 3.48, BNP 541, troponin 8.4 and notably AST 235, ALT 208 with the T bili normal 0.6. Patient was started on doxycycline and ceftriaxone. Echo recently done 06/16/2024 noted EF of 51%, moderate aortic stenosis, mild mitral calcification, mild pulmonary hypertension and akinesis of the basal and basal inferior segments. Patient follows with cardiology group here at [place]. Patient is seen in the emergency room for interview and patient's daughter was present. Patient somnolent unresponsive even to sternal rub. Pulse ox 100% on 2 L nasal cannula. Heart rate 56-66 AFIB. Patient is afebrile. Temp 98.3. Patient has a noted leukocytosis. VBG 7.4, 43, [address] performed in the ED was negative for any acute findings. LFTs elevated. Daughter was patient's caregiver prior to being admitted to [facility] for rehab status post hip replacement. Daughter is also a pharmacist and expressed concerns at [facility] that the provider was holding patient's Lasix due to an elevated BUN over the last few days. In addition, daughter felt the insulin rate was too high but there was no issue with hypoglycemia. Patient's blood sugar currently is 106 mg/dL. Patient uses lactulose to help with severe constipation and likely did not have any lactulose over the last 48 hours per daughter's report. Daughter does state that she wants the patient to return to [facility] as daughter lives just a mile away. Patient likely will become a permanent resident at this facility. Workup continues to investigate the metabolic encephalopathy noting patient has elevated liver enzymes. Patient may have evidence of mild shock liver but lactic acid is within normal limits. We will hold off on CT of the abdomen and pelvis. If LFTs worsen further, will need to consider an ultrasound limited. Patient has received mild hydration and then received 20 mg of Lasix IV x1. Stat ammonia level and stat ABG have been ordered. Pt being admitted for Acute systolic/diastolic exacerbation, B PNA. Pt does not meet the criteria for SIRS at this time. Review of Systems 2 Review of Systems: Yes Unobtainable due to mental condition (pt is somnolent unable to provide ) [facility] Medical History Urinary tract infection with fever Persistent atrial fibrillation Left thigh pain Abdominal mass, LUQ (left upper quadrant) Iliotibial band syndrome of left side UTI (urinary tract infection) Herpes zoster Orthostatic hypotension Acute hyponatremia Weakness COVID-19 Breast asymmetry Atrial fibrillation with rapid ventricular response Hyperkalemia Essential hypertension Atherosclerotic cardiovascular disease Chronic heart failure with preserved ejection fraction (HFpEF) Iliotibial band syndrome of right side Disc degeneration, lumbar Cognitive dysfunction 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 Atrial fibrillation Osteopenia Hypothyroid Spinal stenosis of lumbar region Degenerative disc disease, lumbar Type 2 diabetes mellitus with hyperglycemia Functional capacity: wheelchair bound Patient : No Family History Father CVD (cardiovascular disease) Mother CVD (cardiovascular disease) Stroke Surgical History History of removal of cyst History of appendectomy History of eye surgery History of cataract surgery History of cholecystectomy History of section History of knee replacement History of hip replacement Social History Household Members: None Household Members Other:: son comes 3 days a week, daughter lives 5 minutes away visits frequently Housing: House Do you presently have visiting nurse or other home services: No Alcohol intake: never Comment: post cardioversion Patient Tobacco Use Status: Former Tobacco user Tobacco use type: Cigarette Years Smoked: <1 e-Cigarette/Vaping Use: Former Use Second Hand Smoke Exposure: No Advance Directives: Yes Advance Directives on File: Yes Advance Directives Date on File: 08/29/21 Patient : No service: No Current occupational status: retired Cognitive needs: Yes ([place]) Hearing needs: No Vision needs: Yes Ebola Risk: Travel/Contact With Anyone From Affected Area/s: No Has Patient Experienced Ebola Symptoms: No Meds Allergies Allergy/AdvReac Type Severity Reaction Status Date / Time codeine Allergy Intermediate TACHYCARDIA Verified 07/11/24 14:50 nitrofurantoin [Macrobid] Allergy Unknown confusion Verified 07/11/24 14:50 pravastatin Allergy Unknown Unknown Verified 07/11/24 14:50 rosuvastatin [Crestor] Allergy Unknown Unknown Verified 07/11/24 14:50 Sulfa (Sulfonamide Allergy Unknown unknown Verified 07/11/24 14:50 Antibiotics) sulfamethoxazole Allergy Unknown Unknown Verified 07/11/24 14:50 [From Bactrim] trimethoprim [From Bactrim] Allergy Unknown Unknown Verified 07/11/24 14:50 amlodipine AdvReac Intermediate leg Verified 07/11/24 14:50 swelling digoxin AdvReac Intermediate Confusion Verified 07/11/24 14:50 Home Medications ?Medication ?Instructions ?Recorded ?Confirmed ?Last Taken ?Type travoprost 0.004 % eye drops 1 drp ophthalmic (eye) BEDTIME 06/01/20 07/11/24 11/16/23 History acetaminophen 500 mg tablet 1,000 mg PO TID PRN Pain 08/17/21 07/11/24 08/16/21 History cholecalciferol (vitamin D3) 25 25 mcg PO DAILY 01/01/23 07/11/24 04/19/24 History mcg (1,000 unit) capsule insulin glargine U-300 conc 300 15 unit subcut DAILY 11/17/23 07/11/24 04/19/24 History unit/mL (1.5 mL) subcutaneous pen (Toujeo SoloStar U-300 Insulin) insulin lispro 100 unit/mL 1 sliding scale dose subcut TIDAC 11/17/23 07/11/24 04/19/24 History subcutaneous pen (Humalog KwikPen (U-100) Insulin) calcitriol 0.25 mcg capsule 0.25 mcg PO Q48H 04/20/24 07/11/24 04/19/24 History metoprolol succinate 25 mg 25 mg PO BEDTIME PRN high BP 04/20/24 07/11/24 04/18/24 History tablet,extended release 24 hr rivaroxaban 15 mg tablet (Xarelto) 15 mg PO DAILY@1700 04/20/24 07/11/24 04/18/24 History melatonin 5 mg capsule 5 mg PO BEDTIME PRN insomnia 05/05/24 07/11/24 Unknown History furosemide 40 mg tablet 20 mg PO DAILY 06/20/24 07/11/24 Unknown History gabapentin 300 mg capsule 100 mg PO BID 07/09/24 07/11/24 Unknown History Physical Exam 2 Vital Signs and Narrative: Vital Signs: Last Vital Signs Temp 98.3 F 07/11/24 16:52 Pulse 70 07/11/24 16:52 Resp 19 07/11/24 16:52 BP 160/68 H 07/11/24 16:52 Pulse Ox 98 07/11/24 16:52 O2 Del Method Nasal Cannula 07/11/24 16:52 O2 Flow Rate 1 07/11/24 16:52 BMI result Body Mass Index 31.2 Pt is somnolent, not responsive to sternal rub, respiratory rate 14-16, HR 56- 61 SR, POX 100 on 2L NC Neuro: unable to assess due to pt's level of somnolence EYES: PERRLA ENT: oral mucosa dry, conjunctiva pink Cardiac: S1 S2 irregular rate controlled, no murmur, JVD B present, mild edema BLEs Pulmonary: lungs B rhonchi throughout, notable RH B lower lobes Abdominal: BS active in all 4 quadrants, no response to palpation of abdomen MSK: unable to evaluate strength, mild atrophy : no bladder distension Extremities: mild edema in lower extremities, PT and DP pulses palpable +2 Psych: unable to assess Skin: R ankle medial ulceration covered with dressing (followed at [facility]) Results Labs 07/11/24 15:18 07/11/24 15:18 Labs: Laboratory Results - last 24 hr 07/11/24 07/11/24 07/11/24 14:59 15:18 15:24 MCV 100.3 H MCH 32.1 MCHC 32.0 RDW 18.1 H Plt Count 264 MPV 10.5 Immature Gran % (Auto) 0.7 H Neut % (Auto) 85.3 H Lymph % (Auto) 6.0 L [place] % (Auto) 7.4 Eos % (Auto) 0.2 Baso % (Auto) 0.4 Lymph # (Auto) 0.8 L [place] # (Auto) 1.0 Eos # (Auto) 0.0 Baso # (Auto) 0.1 Abs Immat Gran (auto) 0.10 H Absolute Neuts (auto) 11.6 H Absolute Nucleated RBC 0.000 Nucleated RBC % (auto) 0.0 VBG pH 7.40 VBG pCO2 43 VBG pO2 39 VBG HCO3 27 H VBG O2 Saturation 60.0 VBG Base Excess 2.5 Anion Gap 12 Estim Creat Clear Calc 25.5 Estimated GFR 36 POC Glucose 141 H Random Glucose 151 H Lactic Acid Calcium 9.0 Magnesium 2.5 Total Bilirubin 0.6 Direct Bilirubin 0.3 AST 235 H ALT 208 H Alkaline Phosphatase 224 H C-Reactive Protein 3.48 H B-Natriuretic Peptide 541 H Total Protein 6.8 Albumin 3.7 Ethyl Alcohol < 10 Influenza Type A (PCR) NEGATIVE Influenza Type B (PCR) NEGATIVE RSV RNA Qual (PCR) NEGATIVE SARS-CoV-2 RNA (RT-PCR) NEGATIVE 07/11/24 16:59 MCV MCH MCHC RDW Plt Count MPV Immature Gran % (Auto) Neut % (Auto) Lymph % (Auto) [place] % (Auto) Eos % (Auto) Baso % (Auto) Lymph # (Auto) [place] # (Auto) Eos # (Auto) Baso # (Auto) Abs Immat Gran (auto) Absolute Neuts (auto) Absolute Nucleated RBC Nucleated RBC % (auto) VBG pH VBG pCO2 VBG pO2 VBG HCO3 VBG O2 Saturation VBG Base Excess Anion Gap Estim Creat Clear Calc Estimated GFR POC Glucose Random Glucose Lactic Acid 1.2 Calcium Magnesium Total Bilirubin Direct Bilirubin AST ALT Alkaline Phosphatase C-Reactive Protein B-Natriuretic Peptide Total Protein Albumin Ethyl Alcohol Influenza Type A (PCR) Influenza Type B (PCR) RSV RNA Qual (PCR) SARS-CoV-2 RNA (RT-PCR) ABG Interpretation: VBG 7.40 43 39 27 60 BE 2.5 ABG ECG Attestation: I personally reviewed and interpreted this ECG as follows: (Atrial fibrillation Left axis deviation Minimal voltage criteria for LVH, may be normal variant ( [place] product ) Inferior infarct (cited on or before 14-Jun-2024) Possible Anterior infarct , age undetermined Abnormal ECG) Prior ECG tracings: available for review Imaging Radiologist's Impressions: Impressions Chest X-Ray 07/11/24 15:00 IMPRESSION: Cardiomegaly, pulmonary vascular congestion, small bilateral pleural effusions. Electronically signed by: Akbar Denson MD 07/11/2024 03:[address] chest IMPRESSION: 1. Bilateral pneumonia with svsfu-rzxgeut-bunj-left pleural effusions. 2. Cardiomegaly. Coronary artery disease. CT HEAD IMPRESSION: 1. No acute intracranial findings. ECHO 06/16/24 Conclusions: - The left ventricular systolic function is mildly decreased. The calculated ejection fraction is 51% by biplane method. - The basal inferior, basal inferoseptal, and mid inferolateral segments are akinetic. - There is moderate aortic valve stenosis. - There is moderate mitral annular calcification. - Mild pulmonary hypertension is present. Assessment and Plan (1) Metabolic encephalopathy: Status: Acute (2) Pneumonia: Qualifiers: Laterality: bilateral Lung location: lower lobe of lung Pneumonia type: due to unspecified organism Qualified Code(s): J18.9 - Pneumonia, unspecified organism Status: Acute (3) CHF exacerbation: Qualifiers: Heart failure type: combined systolic and diastolic Qualified Code(s): I50.43 - Acute on chronic combined systolic (congestive) and diastolic (congestive) heart failure Status: Acute (4) Transaminitis: Status: Acute (5) Ulcer of right ankle: Qualifiers: Non-pressure ulcer stage: unspecified non-pressure ulcer stage Q ualified Code(s): L97.319 - Non-pressure chronic ulcer of right ankle with unspecified severity Status: Acute (6) Recurrent UTI: Status: Acute (7) Persistent atrial fibrillation: Status: Acute (8) Constipation: Qualifiers: Constipation type: slow transit constipation Qualified Code(s): K59.01 - Slow transit constipation Status: Acute (9) Hypothyroidism: Qualifiers: Hypothyroidism type: acquired Qualified Code(s): E03.9 - Hypothyroidism, unspecified Status: Acute Plan Patient is an 88-year-old female currently residing at [facility] status post a right hip repair 2-1/2 months prior has past medical history of hypertension, UTI, hyperlipidemia, atrial fibrillation on anticoagulation, dementia not formally diagnosed, systolic and diastolic heart failure, hypothyroidism, insulin-dependent diabetes mellitus, chronic constipation on lactulose, dry macular degeneration, and JADYN not on CPAP is being admitted for acute systolic/diastolic heart failure exacerbation, bilateral pneumonia lower lobes and altered mental status with somnolence. 1. Metabolic encephalopathy CT of the head negative. May need to consider neuro consult as well as MRI of the brain. ABG pending. Patient does have history of JADYN but does not use CPAP. VBG notes a normal CO2 level, PH level, Bicarb Ammonia level 43 WNL LFT elevated (not likely shock liver) UA with reflex requested Antibiotics started for bilateral pneumonia Lasix 20 IV x1 provided so far 2. Acute systolic/diastolic heart failure exacerbation Pulmonary edema and bilateral pleural effusions noted on diagnostics Per patient's daughter, [facility] facility was holding patient's Lasix due to an elevated BUN Patient received 20 mg of Lasix IV x1 so far in the ED approximately 18:30 Pulse ox currently 100% on 2 L nasal cannula, oxygen will be weaned as tolerated Daily weights, fluid restriction 1500 note that patient is currently NPO due to level of somnolence. Low-sodium diet when patient is awake. Last echo 06/16/2024 notes an EF of 51%, moderate aortic stenosis, moderate mitral annular calcification, mild pulmonary hypertension with akinesis of the basal inferior and inferior septal segments ECG AFib, LVH 3. Community-acquired pneumonia CT scan confirmed bilateral opacities, right greater than left with noted pleural effusions bilaterally as well Patient is started on ceftriaxone and doxycycline Oxygen via nasal cannula in place. ABG pending due to level of somnolence and history of JADYN. VBG reassuring. Supportive care with nebulizer treatments for shortness of breath and wheezing. 4. Transaminitis AST 235, ALT 208, alk phos 224, T bili 0.6 Avoid hepatotoxic medications If no improvement in liver enzymes, we will order limited ultrasound Lactic acid 1.2 5. Ulcer of right ankle Patient is followed for this at rehab facility. Dressing is currently clean and dry Wound care consulted for follow-up here during this admission Nutritional status has normally been stable. 6. Recurrent UTI Patient has history of frequent UTI UA with reflex pending to rule out an additional source of infection 7. Persistent AFib EKG and telemetry note atrial fibrillation, rate 56-66 Patient currently NPO due to level of somnolence and unable to take anticoagulation and oral medications including amiodarone. Weight based Lovenox started for Xaralto (1/2 life 9 hours) LFTs are currently elevated, amiodarone likely will be held until this improves. Heart rate is also in the 50s to 60s, holding AV carmelo blocking agents and amiodarone for now 8. Constipation Patient has chronic constipation issues and normally is on lactulose. Recently patient went 6 days without a bowel movement and once received a lactulose 2 bowel movements in 1 day. Abdominal exam benign Patient's appetite has been good We will order Dulcolax prn suppository as patient is currently NPO due to level of somnolence 9. Hypothyroidism Pt normally on 125 mcgs of levothyroxine Ordered 62.5 mcgs IV daily until pt can take meds again Ckecking TSH with reflex Lovenox for DVT prophylaxis as pt cannot currently take AC due to level of somnolence PPI IV daily Pt will require 3 days minumum of hospitalization due to level of somnolence, CHF exacerbation and PNA. Total time managing care of this patient today: 45 minutes. Quality Stroke Does the patient have a stroke diagnosis?: No Reason for No Anti-thrombotic by Day Two: N/A - Med Ordered VTE Prior VTE?: No VTE Risk Level:: Medical - moderate - high VTE Device Contraindication: Treatment Not Tolerated VTE Drug Contraindication: N/A - Med Ordered
--- NOTE | 2024-07-11 19:23 | PHA.MEDREC ---
Pharmacy Consult ? Medication Reconciliation Pharmacy partially completed med rec. I spoke with the patients daughter at bedside who was able to confirm what her mom takes for medications. The patient comes from [facility] and did not have any paperwork from the facility, and the daughter confirmed any medications we don't have claims for is being giving from [facility]. She was able to confirm her moms Toujeo SoloStar U-300 Insulin and confirmed she injects 15 units daily of that and she confirmed the Humalog insulin testing three times a day before meals and injecting per a sliding scale. The daughter was not sure the last time the patient took her medications. I called the facility and faxed a request to get paperwork in for the patient, we will update the med rec when we get list tonight and or follow up in the morning to speak with someone.
--- NOTE | 2024-07-11 19:31 | PHA.MEDREC ---
Addendum entered by Melissa Gauthier [facility] 07/12/24 10:21: [facility] reviewed. Texted Dr. Mas to look at med rec, meds were added and levothyroxine dose changed. Addendum entered by Castro Avitia 07/12/24 09:31: Additionally, adjusted levothyroxine to 150 mcg dose from 125 mcg per [facility] med list. Addendum entered by Castro Avitia 07/12/24 09:30: Followed up AM and received [facility] Fax. Adjusted med rec accordingly. Of note, Facility had Toujeo at 16 units daily and adjusted in med rec. Original Note: Pharmacy Consult ? Medication Reconciliation Pharmacy partially completed med rec. I spoke with the patients daughter at bedside who was able to confirm what her mom takes for medications. The patient comes from [facility] and did not have any paperwork from the facility, and the daughter confirmed any medications we don't have claims for is being giving from [facility]. She was able to confirm her moms Toujeo SoloStar U-300 Insulin and confirmed she injects 15 units daily of that and she confirmed the Humalog insulin testing three times a day before meals and injecting per a sliding scale. The daughter stated her mom is not taking the Tramadol as needed for pain anymore and states she is using Tylenol 500mg tabs for pain. The daughter was not sure the last time the patient took her medications. I called the facility and faxed a request to get paperwork in for the patient, we will update the med rec when we get list tonight and or follow up in the morning to speak with someone.
[2024-07-11 20:00] VITALS: BP 145/64; PULSE 62; RESP 12; TEMP 36.3; O2SAT 100
[2024-07-11 20:13] LABS: Ammonia 43 umol/L (13-55)
[2024-07-11 20:53] VITALS: O2SAT 94
[2024-07-11 20:53] LABS: ABG Base Excess 4.1 mmol/L; ABG HCO3 29 mmol/L (22-26); ABG pCO2 45 mmHg (32-45); ABG pH 7.41 (7.35-7.45); ABG pO2 42 mmHg (83-108)
[2024-07-11 21:32] LABS: Hematocrit 31.7 % (37.0-47.0); Hemoglobin 10.1 g/dl (12.0-16.0); Mean Corpuscular HGB Conc 31.9 g/dl (31.0-35.0); Mean Corpuscular Hemoglobin 32.3 pg (27.0-33.0); Mean Corpuscular Volume 101.3 fL (80.0-98.0); Mean Platelet Volume 10.3 fL (9.4-12.3); Platelet Count 246 X10*3/uL (160-400); Red Blood Count 3.13 X10*6/uL (4.20-5.50); Red Cell Distribution Width 18.1 % (11.0-16.0); White Blood Count 11.4 X10*3/uL (4.8-10.8)
[2024-07-11 21:37] LABS: INTERNATIONAL NORM RATIO 1.5 (0.9-1.1); Prothrombin Time 17.1 SEC (10.9-12.4)
[2024-07-11 21:40] LABS: Partial Thromboplastin Time 40.2 SEC (26.0-36.8)
--- NOTE | 2024-07-11 21:55 | PC.NURSE ---
charted against senna in mar as pt is somnolent. unsafe to swallow po at this time
[2024-07-11] MEDS: Enoxaparin Sodium 80 MG/0.8 ML SYRINGE 70 MG SUBCUT (21:59)
[2024-07-11] MEDS: Dextrose 5 % and 0.9 % NaCl 1,000 ML 50 ML IVCONT (22:28)
[2024-07-11 23:08] LABS: ABG Refer to POC result
--- NOTE | 2024-07-11 23:51 | PC.NURSE ---
late entry- poc obtained on [facility] device noted to be 46. this rn made cee ana cristina aware per provider pt given d50 IVP pt daughter at bedside
--- NOTE | 2024-07-11 23:52 | P.EN_ITS ---
Event Note Date of Service: 07/12/24 Event Note: 23:50 received message from nursing regarding patient's blood sugar currently 46 mg/dL. Patient's daughter has been at the bedside using patient's continuous glucose monitor via her phone and noted that patient's blood sugar went from 97- 83. Out of concern patient was started on D5 normal saline at 50 mL/hour earlier. Patient's blood sugar on arrival to the ED was 151 mg/dL. This blog writer recommended for nursing to recheck with our own device and that is when we learned that patient's blood sugar is 46. This could explain patient's somnolence. Patient is going to receive dextrose 25 g x 1. Patient is already on a dextrose infusion at 75 mL/hour. Continuing to monitor. BMP and lactic acid ordered stat. Patient is seen again while in the emergency department and noted to be awake, verbal speaking both Kiswahili and Occitan, perseverating over urinary leakage although patient does have a very weak attached draining clear yellow urine. Patient does have dementia but her neuro exam at the bedside was within normal limits with no evidence of stroke or abnormal neuro presentation. Patient continues on a dextrose infusion and blood sugar has now corrected. Insulin long-acting regimen on hold. Will continue sliding scale coverage. Time Spent With Patient Time: Total time managing care of this patient today ___45_ minutes.
[2024-07-11 23:54] LABS: Glucose, Whole Blood 46 mg/dL (60-115)
[2024-07-11] MEDS: Dextrose 50 % 25 GM/50 ML SYRINGE IVPUSH (23:57)
[2024-07-12] VITALS (14 sets, daily range): BP systolic 114–162; BP diastolic 62–83; PULSE 61–85; RESP 12–24; TEMP 35.8–36.6; O2SAT 95–100
[2024-07-12 00:18] LABS: Glucose, Whole Blood 170 mg/dL (60-115)
[2024-07-12 00:34] LABS: Glucose, Whole Blood 147 mg/dL (60-115)
[2024-07-12 00:59] LABS: Glucose, Whole Blood 126 mg/dL (60-115)
[2024-07-12 01:01] LABS: Anion Gap 13 (12-20); Blood Urea Nitrogen 43 mg/dL (9-16); Calcium 8.4 mg/dL (8.4-10.2); Carbon Dioxide 24 mmol/L (22-29); Chloride 109 mmol/L (96-108); Creatinine Clr Calc Pharmacy 29.6; Estimated Glomerular Filt Rate 43; Glucose Random 143 mg/dL (60-115); Potassium 3.6 mmol/L (3.3-5.1); Sodium 142 mmol/L (135-145)
[2024-07-12 01:02] LABS: Lactic Acid 0.6 mmol/L (0.5-2.0)
[2024-07-12 02:03] LABS: Glucose, Whole Blood 119 mg/dL (60-115)
[2024-07-12 02:56] LABS: Glucose, Whole Blood 102 mg/dL (60-115)
--- NOTE | 2024-07-12 03:04 | PC.NURSE ---
pt with urine noted on chux pad, pt cleansed, linens and chux pad changed at this time.
--- NOTE | 2024-07-12 03:25 | PC.NURSE ---
@ 0230 p noted to be more awake and alert pt speaking in albanian reiterating to this rn pt needs pants on. this rn made cee ana cristina aware of change in pt mental status cee ana cristina to bedside awaiting new orders
[2024-07-12 04:05] LABS: Glucose, Whole Blood 102 mg/dL (60-115)
[2024-07-12] MEDS: QUEtiapine Fumarate 25 MG TABLET PO (05:00)
--- NOTE | 2024-07-12 05:04 | PC.NURSE ---
pt noted to have increased agitation pulling on iv, nasal canula, and heart monitor asking to get out of bed. pt high fall risk. cee ana cristina made aware po seroquel in place. per ana cristina nursing swallow eval performed as pt is more awake at this time swallow eval passed pt medicated according to mar tolerated po med well ana cristina made aware
[2024-07-12 05:56] LABS: Appearance Urine Clear; Color Urine Yellow; Glucose Urine UA Negative (Negative); Leukocyte Esterase Urine Moderate (2+) (Negative); Nitrite Urine Negative (Negative); Specific Gravity - Urine 1.015 (1.005-1.025); UMIC TRIGGER UA YES; Urine Blood Negative (Negative); Urine Ketones Negative (Negative); Urine Protein Negative (Neg-Trace)
[2024-07-12 06:05] LABS: Bacteria Urine None Seen (None Seen); RBC Urine 0-2 /HPF (0-2); Squamous Epithelial Cell Urine 0-2 /HPF (0-2); WBC Urine 0-5 /HPF (0-5)
[2024-07-12 06:06] LABS: Amphetamine Screen Urine Not Detected (Not Detect); Barbiturates, Urine Not Detected (Not Detect); Benzodiazepines Screen Urine Not Detected (Not Detect); Buprenorphine Scr Not Detected (Not Detect); Cannabinoid Screen Urine Not Detected (Not Detect); Cocaine Screen Urine Not Detected (Not Detect); Fentanyl, urine Not Detected (Not Detect); Methadone Screen, Urine Not Detected (Not Detect); Opiate Screen Urine Not Detected (Not Detect); Oxycodone Screen Urine Not Detected (Not Detect); Phencyclidine Screen Urine Not Detected (Not Detect)
[2024-07-12 06:06] LABS: Hematocrit 31.7 % (37.0-47.0); Hemoglobin 10.2 g/dl (12.0-16.0); Mean Corpuscular HGB Conc 32.2 g/dl (31.0-35.0); Mean Corpuscular Hemoglobin 32.1 pg (27.0-33.0); Mean Corpuscular Volume 99.7 fL (80.0-98.0); Mean Platelet Volume 10.4 fL (9.4-12.3); Platelet Count 209 X10*3/uL (160-400); Red Blood Count 3.18 X10*6/uL (4.20-5.50); Red Cell Distribution Width 17.8 % (11.0-16.0); White Blood Count 8.5 X10*3/uL (4.8-10.8)
[2024-07-12 06:19] LABS: Glucose, Whole Blood 93 mg/dL (60-115)
[2024-07-12] MEDS: Levothyroxine Sodium 100 MCG/5 ML VIAL 62.5 MCG IVPUSH (06:22)
[2024-07-12 06:24] LABS: Alanine Aminotransferase 149 U/L (0-31); Albumin Level 3.5 g/dL (3.5-5.0); Alkaline Phosphatase 183 U/L (39-117); Anion Gap 11 (12-20); Aspartate Amino Transferase 123 U/L (5-31); Bilirubin Total 0.5 mg/dL (0.0-1.0); Blood Urea Nitrogen 39 mg/dL (9-16); Calcium 8.6 mg/dL (8.4-10.2); Carbon Dioxide 25 mmol/L (22-29); Chloride 109 mmol/L (96-108); Creatinine Clr Calc Pharmacy 30.3; Estimated Glomerular Filt Rate 44; Glucose Random 100 mg/dL (60-115); Sodium 141 mmol/L (135-145); Total Protein 6.5 g/dL (6.5-8.0)
--- NOTE | 2024-07-12 06:34 | PC.NURSE ---
per cee ana cristina pt changed to diabetic diet order
--- NOTE | 2024-07-12 07:31 | PC.NURSE ---
production internship resumed care of patient at 0700, pt currently resting comfortably in bed, pure wic in place. Pt is A/O to self only. IVF running per MAR. Pt remains on tele. Awaiting bed assignment at this time
[2024-07-12 07:35] LABS: Glucose, Whole Blood 89 mg/dL (60-115)
[2024-07-12] MEDS: Doxycycline Hyclate 100 MG in 0.9 % Sodium Chloride 250 ML 166.67 MG IV ×2 (07:44→20:35)
[2024-07-12] MEDS: Enoxaparin Sodium 80 MG/0.8 ML SYRINGE 70 MG SUBCUT ×2 (07:45→20:29)
[2024-07-12] MEDS: Furosemide 20 MG/2 ML VIAL IVPUSH (07:46)
[2024-07-12] MEDS: OLANZapine 10 MG VIAL 2.5 MG IM ×2 (11:24→22:20)
--- NOTE | 2024-07-12 11:36 | PC.NURSE ---
this nurse assumed care of pt at 1100. upon entering the patient room, pt had ripped off all of her clothing as well as bed linens. pt was attempting to get out of bed screaming repeatedly my bed is soaked in piss! . pt was cleaned and new linens were place, and purewick replaced. pt then pulled out pure wick and urinated again stating i'm going to kill oyu . Pt began refusing to allow t/w or quality tech to assist pt with hygiene. pt then ripped off cardiac leads and attempted to remove IV access in L-AC. Pt also yelling at random areas of the room for them to get out . MD Mas notified via [employer]. 2.5mg Olanzapine ordered- administered per JUN at 1125. Sitter at bedside, bed alarm on for safety.
[2024-07-12 11:50] LABS: Glucose, Whole Blood 123 mg/dL (60-115)
[2024-07-12] MEDS: Dextrose 5 % and 0.9 % NaCl 1,000 ML 75 ML IVCONT (12:00)
--- NOTE | 2024-07-12 12:03 | PC.NURSE ---
Pt continues to be monitored, needing frequent redirection, confused and interfering with medical equipment. Slightly more calm, able to get monitor and storage bin tender back on and some vitals done. SPO2 >94%
--- NOTE | 2024-07-12 12:20 | PC.NURSE ---
pt continues to monitoring equipment- attempts made to redirect and orient patient without success,- MD Mas notified via [employer] connect
--- NOTE | 2024-07-12 12:35 | PC.NURSE ---
Pt changed and cleaned, new hospital clothing and new purewick placed. Pt slightly more calm but needs alot of redirection, daughter at bedside continuing to redirect pt. Pt had intermittent periods of increased agitated. O2 remains on.
--- NOTE | 2024-07-12 13:52 | HO.PM.IMPN ---
Subjective Subjective Date of Service: 07/12/24 Interval History: seen and evaluated this morning altered, anxious and restless WBCs and LFT trended down No other events Review of Systems Review of Systems: Yes all other systems are reviewed and are negative Physical Exam Vital Signs: Vital Signs: Last Vital Signs Temp 97.3 F 07/12/24 05:18 Pulse 78 07/12/24 12:44 Resp 16 07/12/24 12:44 BP 134/74 07/12/24 12:44 Pulse Ox 95 07/12/24 12:44 O2 Del Method Nasal Cannula 07/12/24 12:44 O2 Flow Rate 2 07/12/24 12:44 BMI result Body Mass Index 31.2 Const: Other: Constitutional : interactive but altered, restless, not in distress Cardiovascular : no JVP, no lower extremity edema Respiratory : bilateral chest movement, fair bilateral air entry Gastrointestinal: soft, lax, Non tender Skin : Warm, Dry Neurological : Alert with stimulation & disoriented , moving all extremities Objective Data Active Medications Acetaminophen (Acetaminophen 325 Mg Tablet) 650 mg PO Q6H PRN PRN Reason: Pain, Mild 1-3,fever,headache Albuterol/Ipratropium (Albuterol/Iprat 2.5/0.5mg 3 Ml Ampul.Neb) 3 ml INHALE Q4H PRN PRN Reason: Shortness of Breath/Wheezing Amiodarone HCl (Amiodarone Hcl 200 Mg Tablet) 200 mg PO DAILY [facility] Last Admin: 07/12/24 11:41 Dose: Not Given Documented By: SHERIF Non-Admin Reason: PT NOT SAFE TO TAKE MEDS, IM SEDATION Calcium Carbonate (Calcium Carbonate 750 Mg Tab.Chew) 750 mg PO Q4H PRN PRN Reason: Heartburn Ceftriaxone Sodium (Ceftriaxone Sodium 1 Gm Vial) 1 gm IVPUSH Q24H [facility] Dextrose (Dextrose 50 % 25 Gm/50 Ml Syringe) 25 gm IVPUSH Q15M PRN; Protocol PRN Reason: per Hypoglycemia Standing Ord. Enoxaparin Sodium (Enoxaparin Sodium 80 Mg/0.8 Ml Syringe) 70 mg 1 mg/kg (70 mg) SUBCUT Q12H [facility] Last Admin: 07/12/24 07:45 Dose: 70 mg Documented By: ANCA Furosemide (Furosemide 20 Mg/2 Ml Vial) 20 mg IVPUSH DAILY [facility]; Protocol Last Admin: 07/12/24 07:46 Dose: 20 mg Documented By: ANCA Glucose (Glucose Gel 15 Gm Gel..Gram.) 15 gm PO Q15M PRN; Protocol PRN Reason: per Hypoglycemia Standing Ord. Hydralazine HCl (Hydralazine Hcl 20 Mg/Ml Vial) 10 mg IVPUSH Q6H PRN; Protocol PRN Reason: SBP > 160 Doxycycline Hyclate 100 mg/ (Sodium Chloride) 250 mls @ 166.67 mls/hr IV Q12H [facility] Last Infusion: 07/12/24 09:43 Dose: Infused Documented By: ANCA Dextrose/Sodium Chloride (D5ns) 1,000 mls @ 75 mls/hr IVCONT .[id number] [facility] Last Admin: 07/12/24 12:00 Dose: 75 mls/hr Documented By: SHERIF Insulin Human Lispro (Insulin Lispro 100 Unit/Ml 3 Ml Vial) 0 unit SUBCUT QIDACHS [facility]; Protocol Last Admin: 07/12/24 11:47 Dose: Not Given Documented By: SHERIF Non-Admin Reason: No Insulin Coverage Latanoprost (Latanoprost 0.005 % Ophth Liseth 2.5 Ml Drops) 1 drop EYE-BOTH BEDTIME [facility] Levothyroxine Sodium (Levothyroxine Sodium 150 Mcg Tablet) 150 mcg PO DAILY@0600 [facility] Magnesium Hydroxide (Milk Of Magnesia 30 Ml Oral.Susp) 30 ml PO DAILY PRN PRN Reason: Constipation Metoprolol Succinate (Metoprolol Succinate Er 100 Mg Tab.Er.24h) 100 mg PO DAILY [facility]; Protocol Last Admin: 07/12/24 11:41 Dose: Not Given Documented By: SHERIF Non-Admin Reason: PT NOT SAFE TO TAKE MEDS, IM SEDATION Olanzapine (Olanzapine 10 Mg Vial) 2.5 mg IM ONCE PRN PRN Reason: anxiety/restlessness Ondansetron HCl (Ondansetron Hcl 4 Mg/2 Ml Vial) 4 mg IVPUSH Q8H PRN PRN Reason: Nausea and Vomiting Polyethylene Glycol (Polyethylene Glycol 3350 17 Gm Powd.Pack) 17 gm PO DAILY PRN PRN Reason: Constipation Senna (Sennosides 8.6 Mg Tablet) 17.2 mg PO BEDTIME [facility] Last Admin: 07/11/24 21:54 Dose: Not Given Documented By: SINCERE Non-Admin Reason: pt unsafe to swallow po Senna/Docusate Sodium (Sennosides/Docusate Sodium Tablet) 1 tab PO BID [facility] Sodium Chloride (0.9 % Sodium Chloride Flush 3 Ml Syringe) 3 ml IVFLUSH QSHIFT [facility] Last Admin: 07/12/24 07:36 Dose: Not Given Documented By: ANCA Non-Admin Reason: IV Running Trazodone HCl (Trazodone Hcl 50 Mg Tablet) 12.5 mg PO BID PRN PRN Reason: Anxiety Labs 07/12/24 06:00 07/12/24 06:00 Labs: Laboratory Results - last 24 hr 07/11/24 07/11/24 07/11/24 14:59 15:18 15:24 MCV 100.3 H MCH 32.1 MCHC 32.0 RDW 18.1 H Plt Count 264 MPV 10.5 Immature Gran % (Auto) 0.7 H Neut % (Auto) 85.3 H Lymph % (Auto) 6.0 L [place] % (Auto) 7.4 Eos % (Auto) 0.2 Baso % (Auto) 0.4 Lymph # (Auto) 0.8 L [place] # (Auto) 1.0 Eos # (Auto) 0.0 Baso # (Auto) 0.1 Abs Immat Gran (auto) 0.10 H Absolute Neuts (auto) 11.6 H Absolute Nucleated RBC 0.000 Nucleated RBC % (auto) 0.0 Hold Purple Top PT INR APTT O2 Saturation ABG pH at Pt Temp ABG pCO2 at Pt Temp ABG pO2 at Pt Temp ABG HCO3 ABG Base Excess (Actual) VBG pH 7.40 VBG pCO2 43 VBG pO2 39 VBG HCO3 27 H VBG O2 Saturation 60.0 VBG Base Excess 2.5 Anion Gap 12 Estim Creat Clear Calc 25.5 Estimated GFR 36 POC Glucose 141 H Random Glucose 151 H Lactic Acid Calcium 9.0 Magnesium 2.5 Total Bilirubin 0.6 Direct Bilirubin 0.3 AST 235 H ALT 208 H Alkaline Phosphatase 224 H Ammonia C-Reactive Protein 3.48 H B-Natriuretic Peptide 541 H Total Protein 6.8 Albumin 3.7 Urine Color Urine Appearance Urine pH Ur Specific [place] Urine Protein Urine Glucose (UA) Urine Ketones Urine Blood Urine Nitrite Ur Leukocyte Esterase Urine RBC Urine WBC Ur Squamous Epith Cells Urine Bacteria Hyaline Casts Urine Opiates Screen Ur Buprenorphine Scrn Ur Oxycodone Screen Urine Methadone Screen Urine Fentanyl Screen Ur Barbiturates Screen Ur Phencyclidine Scrn Ur Amphetamines Screen U Benzodiazepines Scrn Urine Cocaine Screen U Marijuana (THC) Screen Ethyl Alcohol < 10 Influenza Type A (PCR) NEGATIVE Influenza Type B (PCR) NEGATIVE RSV RNA Qual (PCR) NEGATIVE SARS-CoV-2 RNA (RT-PCR) NEGATIVE 07/11/24 07/11/24 07/11/24 16:59 19:59 20:50 MCV MCH MCHC RDW Plt Count MPV Immature Gran % (Auto) Neut % (Auto) Lymph % (Auto) [place] % (Auto) Eos % (Auto) Baso % (Auto) Lymph # (Auto) [place] # (Auto) Eos # (Auto) Baso # (Auto) Abs Immat Gran (auto) Absolute Neuts (auto) Absolute Nucleated RBC Nucleated RBC % (auto) Hold Purple Top PT INR APTT O2 Saturation 64.0 ABG pH at Pt Temp 7.41 ABG pCO2 at Pt Temp 45 ABG pO2 at Pt Temp 42 L* ABG HCO3 29 H ABG Base Excess (Actual) 4.1 VBG pH VBG pCO2 VBG pO2 VBG HCO3 VBG O2 Saturation VBG Base Excess Anion Gap Estim Creat Clear Calc Estimated GFR POC Glucose Random Glucose Lactic Acid 1.2 Calcium Magnesium Total Bilirubin Direct Bilirubin AST ALT Alkaline Phosphatase Ammonia 43 C-Reactive Protein B-Natriuretic Peptide Total Protein Albumin Urine Color Urine Appearance Urine pH Ur Specific [place] Urine Protein Urine Glucose (UA) Urine Ketones Urine Blood Urine Nitrite Ur Leukocyte Esterase Urine RBC Urine WBC Ur Squamous Epith Cells Urine Bacteria Hyaline Casts Urine Opiates Screen Ur Buprenorphine Scrn Ur Oxycodone Screen Urine Methadone Screen Urine Fentanyl Screen Ur Barbiturates Screen Ur Phencyclidine Scrn Ur Amphetamines Screen U Benzodiazepines Scrn Urine Cocaine Screen U Marijuana (THC) Screen Ethyl Alcohol Influenza Type A (PCR) Influenza Type B (PCR) RSV RNA Qual (PCR) SARS-CoV-2 RNA (RT-PCR) 07/11/24 07/11/24 07/12/24 21:24 23:49 00:13 MCV 101.3 H MCH 32.3 MCHC 31.9 RDW 18.1 H Plt Count 246 MPV 10.3 Immature Gran % (Auto) Neut % (Auto) Lymph % (Auto) [place] % (Auto) Eos % (Auto) Baso % (Auto) Lymph # (Auto) [place] # (Auto) Eos # (Auto) Baso # (Auto) Abs Immat Gran (auto) Absolute Neuts (auto) Absolute Nucleated RBC 0.000 Nucleated RBC % (auto) 0.0 Hold Purple Top PT 17.1 H INR 1.5 H APTT 40.2 H O2 Saturation ABG pH at Pt Temp ABG pCO2 at Pt Temp ABG pO2 at Pt Temp ABG HCO3 ABG Base Excess (Actual) VBG pH VBG pCO2 VBG pO2 VBG HCO3 VBG O2 Saturation VBG Base Excess Anion Gap Estim Creat Clear Calc Estimated GFR POC Glucose 46 L* 170 H Random Glucose Lactic Acid Calcium Magnesium Total Bilirubin Direct Bilirubin AST ALT Alkaline Phosphatase Ammonia C-Reactive Protein B-Natriuretic Peptide Total Protein Albumin Urine Color Urine Appearance Urine pH Ur Specific [place] Urine Protein Urine Glucose (UA) Urine Ketones Urine Blood Urine Nitrite Ur Leukocyte Esterase Urine RBC Urine WBC Ur Squamous Epith Cells Urine Bacteria Hyaline Casts Urine Opiates Screen Ur Buprenorphine Scrn Ur Oxycodone Screen Urine Methadone Screen Urine Fentanyl Screen Ur Barbiturates Screen Ur Phencyclidine Scrn Ur Amphetamines Screen U Benzodiazepines Scrn Urine Cocaine Screen U Marijuana (THC) Screen Ethyl Alcohol Influenza Type A (PCR) Influenza Type B (PCR) RSV RNA Qual (PCR) SARS-CoV-2 RNA (RT-PCR) 07/12/24 07/12/24 07/12/24 00:30 00:41 00:54 MCV MCH MCHC RDW Plt Count MPV Immature Gran % (Auto) Neut % (Auto) Lymph % (Auto) [place] % (Auto) Eos % (Auto) Baso % (Auto) Lymph # (Auto) [place] # (Auto) Eos # (Auto) Baso # (Auto) Abs Immat Gran (auto) Absolute Neuts (auto) Absolute Nucleated RBC Nucleated RBC % (auto) Hold Purple Top SEE NOTE PT INR APTT O2 Saturation ABG pH at Pt Temp ABG pCO2 at Pt Temp ABG pO2 at Pt Temp ABG HCO3 ABG Base Excess (Actual) VBG pH VBG pCO2 VBG pO2 VBG HCO3 VBG O2 Saturation VBG Base Excess Anion Gap 13 Estim Creat Clear Calc 29.6 Estimated GFR 43 POC Glucose 147 H 126 H Random Glucose 143 H Lactic Acid 0.6 Calcium 8.4 D Magnesium Total Bilirubin Direct Bilirubin AST ALT Alkaline Phosphatase Ammonia C-Reactive Protein B-Natriuretic Peptide Total Protein Albumin Urine Color Urine Appearance Urine pH Ur Specific [place] Urine Protein Urine Glucose (UA) Urine Ketones Urine Blood Urine Nitrite Ur Leukocyte Esterase Urine RBC Urine WBC Ur Squamous Epith Cells Urine Bacteria Hyaline Casts Urine Opiates Screen Ur Buprenorphine Scrn Ur Oxycodone Screen Urine Methadone Screen Urine Fentanyl Screen Ur Barbiturates Screen Ur Phencyclidine Scrn Ur Amphetamines Screen U Benzodiazepines Scrn Urine Cocaine Screen U Marijuana (THC) Screen Ethyl Alcohol Influenza Type A (PCR) Influenza Type B (PCR) RSV RNA Qual (PCR) SARS-CoV-2 RNA (RT-PCR) 07/12/24 07/12/24 07/12/24 01:59 02:52 04:02 MCV MCH MCHC RDW Plt Count MPV Immature Gran % (Auto) Neut % (Auto) Lymph % (Auto) [place] % (Auto) Eos % (Auto) Baso % (Auto) Lymph # (Auto) [place] # (Auto) Eos # (Auto) Baso # (Auto) Abs Immat Gran (auto) Absolute Neuts (auto) Absolute Nucleated RBC Nucleated RBC % (auto) Hold Purple Top PT INR APTT O2 Saturation ABG pH at Pt Temp ABG pCO2 at Pt Temp ABG pO2 at Pt Temp ABG HCO3 ABG Base Excess (Actual) VBG pH VBG pCO2 VBG pO2 VBG HCO3 VBG O2 Saturation VBG Base Excess Anion Gap Estim Creat Clear Calc Estimated GFR POC Glucose 119 H 102 102 Random Glucose Lactic Acid Calcium Magnesium Total Bilirubin Direct Bilirubin AST ALT Alkaline Phosphatase Ammonia C-Reactive Protein B-Natriuretic Peptide Total Protein Albumin Urine Color Urine Appearance Urine pH Ur Specific [place] Urine Protein Urine Glucose (UA) Urine Ketones Urine Blood Urine Nitrite Ur Leukocyte Esterase Urine RBC Urine WBC Ur Squamous Epith Cells Urine Bacteria Hyaline Casts Urine Opiates Screen Ur Buprenorphine Scrn Ur Oxycodone Screen Urine Methadone Screen Urine Fentanyl Screen Ur Barbiturates Screen Ur Phencyclidine Scrn Ur Amphetamines Screen U Benzodiazepines Scrn Urine Cocaine Screen U Marijuana (THC) Screen Ethyl Alcohol Influenza Type A (PCR) Influenza Type B (PCR) RSV RNA Qual (PCR) SARS-CoV-2 RNA (RT-PCR) 07/12/24 07/12/24 07/12/24 05:49 06:00 06:17 MCV 99.7 H MCH 32.1 MCHC 32.2 RDW 17.8 H Plt Count 209 MPV 10.4 Immature Gran % (Auto) Neut % (Auto) Lymph % (Auto) [place] % (Auto) Eos % (Auto) Baso % (Auto) Lymph # (Auto) [place] # (Auto) Eos # (Auto) Baso # (Auto) Abs Immat Gran (auto) Absolute Neuts (auto) Absolute Nucleated RBC 0.000 Nucleated RBC % (auto) 0.0 Hold Purple Top PT INR APTT O2 Saturation ABG pH at Pt Temp ABG pCO2 at Pt Temp ABG pO2 at Pt Temp ABG HCO3 ABG Base Excess (Actual) VBG pH VBG pCO2 VBG pO2 VBG HCO3 VBG O2 Saturation VBG Base Excess Anion Gap 11 L Estim Creat Clear Calc 30.3 Estimated GFR 44 POC Glucose 93 Random Glucose 100 Lactic Acid Calcium 8.6 Magnesium Total Bilirubin 0.5 Direct Bilirubin AST 123 H ALT 149 H Alkaline Phosphatase 183 H Ammonia C-Reactive Protein B-Natriuretic Peptide Total Protein 6.5 Albumin 3.5 Urine Color Yellow Urine Appearance Clear Urine pH 5.0 Ur Specific [place] 1.015 Urine Protein Negative Urine Glucose (UA) Negative Urine Ketones Negative Urine Blood Negative Urine Nitrite Negative Ur Leukocyte Esterase Moderate (2+) H Urine RBC 0-2 Urine WBC 0-5 Ur Squamous Epith Cells 0-2 Urine Bacteria None Seen Hyaline Casts 3-5 Urine Opiates Screen Not Detected Ur Buprenorphine Scrn Not Detected Ur Oxycodone Screen Not Detected Urine Methadone Screen Not Detected Urine Fentanyl Screen Not Detected Ur Barbiturates Screen Not Detected Ur Phencyclidine Scrn Not Detected Ur Amphetamines Screen Not Detected U Benzodiazepines Scrn Not Detected Urine Cocaine Screen Not Detected U Marijuana (THC) Screen Not Detected Ethyl Alcohol Influenza Type A (PCR) Influenza Type B (PCR) RSV RNA Qual (PCR) SARS-CoV-2 RNA (RT-PCR) 07/12/24 07/12/24 07:32 11:47 MCV MCH MCHC RDW Plt Count MPV Immature Gran % (Auto) Neut % (Auto) Lymph % (Auto) [place] % (Auto) Eos % (Auto) Baso % (Auto) Lymph # (Auto) [place] # (Auto) Eos # (Auto) Baso # (Auto) Abs Immat Gran (auto) Absolute Neuts (auto) Absolute Nucleated RBC Nucleated RBC % (auto) Hold Purple Top PT INR APTT O2 Saturation ABG pH at Pt Temp ABG pCO2 at Pt Temp ABG pO2 at Pt Temp ABG HCO3 ABG Base Excess (Actual) VBG pH VBG pCO2 VBG pO2 VBG HCO3 VBG O2 Saturation VBG Base Excess Anion Gap Estim Creat Clear Calc Estimated GFR POC Glucose 89 123 H Random Glucose Lactic Acid Calcium Magnesium Total Bilirubin Direct Bilirubin AST ALT Alkaline Phosphatase Ammonia C-Reactive Protein B-Natriuretic Peptide Total Protein Albumin Urine Color Urine Appearance Urine pH Ur Specific [place] Urine Protein Urine Glucose (UA) Urine Ketones Urine Blood Urine Nitrite Ur Leukocyte Esterase Urine RBC Urine WBC Ur Squamous Epith Cells Urine Bacteria Hyaline Casts Urine Opiates Screen Ur Buprenorphine Scrn Ur Oxycodone Screen Urine Methadone Screen Urine Fentanyl Screen Ur Barbiturates Screen Ur Phencyclidine Scrn Ur Amphetamines Screen U Benzodiazepines Scrn Urine Cocaine Screen U Marijuana (THC) Screen Ethyl Alcohol Influenza Type A (PCR) Influenza Type B (PCR) RSV RNA Qual (PCR) SARS-CoV-2 RNA (RT-PCR) Assessment and Plan (1) Transaminitis: Status: Acute (2) CHF exacerbation: Status: Acute (3) Metabolic encephalopathy: Status: Acute (4) Pneumonia: Status: Acute (5) Persistent atrial fibrillation: Status: Acute Plan Patient is an 88-year-old female currently residing at [facility] status post a right hip repair 2-1/2 months prior has past medical history of hypertension, UTI, hyperlipidemia, atrial fibrillation on anticoagulation, dementia not formally diagnosed, systolic and diastolic heart failure, hypothyroidism, insulin-dependent diabetes mellitus, chronic constipation on lactulose, dry macular degeneration, and JADYN not on CPAP is being admitted for acute systolic/diastolic heart failure exacerbation, bilateral pneumonia lower lobes and altered mental status with somnolence. Acute toxic Metabolic encephalopathy likely in state of advanced dementia and acute infection w Pneumonia CT of the head negative VBG normal CO2 level, PH level, Bicarb Ammonia level 43 LFT mildly elevated UA clean Antibiotics started for bilateral pneumonia recurrent reorientation Zyprexa as needed for restlessness Acute systolic/diastolic heart failure exacerbation Pulmonary edema and bilateral pleural effusions noted on CXR Lasix given, monitor Wean O2 down as tolerated Daily weights, fluid restriction Last echo 06/16/2024 notes an EF of 51% Community-acquired pneumonia CT scan confirmed bilateral opacities, right greater than left with noted pleural effusions bilaterally as well Patient is started on ceftriaxone and doxycycline Oxygen via nasal cannula in place. nebulizer treatments PRN Hypoglycemia in DMII Start D5W hydration encourage PO intake monitor POC Transaminitis trending down likely related to fluid overload and acute infection Avoid hepatotoxic medications If no improvement in liver enzymes, we will order limited ultrasound Lactic acid 1.2 Ulcer of right ankle Patient is followed for this at rehab facility. Dressing is currently clean and dry Wound care consulted for follow-up here during this admission Nutritional status has normally been stable. Persistent AFib rate controlled Weight based Lovenox started for Xaralto (/2 life 9 hours) Hold amiodarone , decrease Metoprolol for reported bradycardia Constipation went 6 days without a bowel movement Dulcolax prn suppository Lactulose if needed Hypothyroidism restart 150 mcgs of levothyroxine normal TSH with reflex Lovenox for DVT prophylaxis Pt will require overnight hospitalization due to level of somnolence, CHF exacerbation and PNA. Quality Stroke Does the patient have a stroke diagnosis?: No Reason for No Anti-thrombotic by Day Two: N/A - Med Ordered VTE Prior VTE?: No VTE Risk Level:: Medical - moderate - high VTE Device Contraindication: Treatment Not Tolerated VTE Drug Contraindication: N/A - Med Ordered
--- NOTE | 2024-07-12 14:14 | MHC.CM.PN ---
IMM 07/12. Pt with dx dementia, [facility] where she is a private pay bed hold. Pt uses a wheelchair. BLS transportation. HCP on file and verified. PCP: Monique White
--- NOTE | 2024-07-12 14:55 | PC.NURSE ---
pt was sent lunch tray,per order pt to have speech eval- reviewed with MD Mas, pt has passed nursing swallow screen in dept, okay for pt to continue with DM diet.
--- NOTE | 2024-07-12 15:10 | PC.NURSE ---
Pt dry, purewick working well. Output documented. Afib on monitor, remains on 2L O2 NC. Pt more calm and intermittently resting.
[2024-07-12 16:07] LABS: Glucose, Whole Blood 132 mg/dL (60-115)
--- NOTE | 2024-07-12 16:12 | PC.NURSE ---
Pt pulled out purewick again, pts linens/ bed completely changed. Hospital clothing changed. IV wrap fixed. New purewick placed. Pt is dry at this time. Pt does keep pulling at her O2, constantly needing redirection,
--- NOTE | 2024-07-12 16:13 | PC.NURSE ---
pt linens changed, pt repositioned for comfort, new purewick in place- pt transported to [facility] room 482
--- NOTE | 2024-07-12 16:17 | PC.NURSE ---
spoke with pt str Yue- advised pt transferred to room 482
[2024-07-12 16:42] LABS: Glucose, Whole Blood 132 mg/dL (60-115)
[2024-07-12] MEDS: cefTRIAXone sodium 1 GM VIAL IVPUSH (18:39)
[2024-07-12] MEDS: Sennosides/Docusate Sodium TABLET 1 TAB PO (20:29)
[2024-07-12] MEDS: Sennosides 8.6 MG TABLET 17.2 MG PO (20:29)
[2024-07-12 20:36] LABS: Glucose, Whole Blood 160 mg/dL (60-115)
[2024-07-13] MEDS: Dextrose 5 % and 0.9 % NaCl 1,000 ML 75 ML IVCONT (01:41)
[2024-07-13] MEDS: traZODone HCL 50 MG TABLET 12.5 MG PO (01:52)
[2024-07-13 03:31] VITALS: BP 170/88; PULSE 95; RESP 17; TEMP 36.9; O2SAT 98
[2024-07-13 03:43] LABS: Glucose, Whole Blood 204 mg/dL (60-115)
[2024-07-13] MEDS: Levothyroxine Sodium 150 MCG TABLET PO (06:53)
[2024-07-13 07:22] LABS: MANUAL DIFF FLAG NO
[2024-07-13 07:25] VITALS: BP 186/93; PULSE 98; RESP 18; TEMP 36.6; O2SAT 94
[2024-07-13 07:25] LABS: Glucose, Whole Blood 211 mg/dL (60-115)
[2024-07-13 07:33] LABS: Basophils Absolute Auto 0.1 X10*3/uL (0.0-0.2); Basophils Percent Auto 1.1 % (0-2); Eosinophils Absolute Auto 0.1 X10*3/uL (0.0-0.4); Eosinophils Percent Auto 1.6 % (0-4); Hematocrit 30.6 % (37.0-47.0); Imm Gran Abs Auto 0.07 X10*3/uL (0.00-0.03); Imm Gran Pct Auto 0.9 % (0.0-0.4); Lymphocytes Absolute Auto 0.7 X10*3/uL (1.2-4.9); Lymphocytes Percent Auto 8.9 % (20-40); Mean Corpuscular HGB Conc 32.7 g/dl (31.0-35.0); Mean Corpuscular Hemoglobin 32.8 pg (27.0-33.0); Mean Corpuscular Volume 100.3 fL (80.0-98.0); Mean Platelet Volume 10.6 fL (9.4-12.3); Monocytes Absolute Auto 0.9 X10*3/uL (0.1-1.2); Monocytes Percent Auto 11.1 % (2-11); Neutrophils Absolute Auto 6.3 x10*3/uL (2.0-8.3); Neutrophils Percent Auto 76.4 % (45-73); Platelet Count 261 X10*3/uL (160-400); Red Blood Count 3.05 X10*6/uL (4.20-5.50); Red Cell Distribution Width 18.1 % (11.0-16.0); White Blood Count 8.2 X10*3/uL (4.8-10.8)
[2024-07-13 07:43] LABS: Anion Gap 14 (12-20); Blood Urea Nitrogen 25 mg/dL (9-16); Calcium 8.9 mg/dL (8.4-10.2); Carbon Dioxide 23 mmol/L (22-29); Chloride 110 mmol/L (96-108); Creatinine Clr Calc Pharmacy 36.3; Estimated Glomerular Filt Rate 54; Glucose Random 229 mg/dL (60-115); Potassium 3.7 mmol/L (3.3-5.1); Sodium 143 mmol/L (135-145)
[2024-07-13] MEDS: Insulin Lispro 100 UNIT/ML 3 ML VIAL SUBCUT ×2 (08:21→12:10)
[2024-07-13] MEDS: Doxycycline Hyclate 100 MG in 0.9 % Sodium Chloride 250 ML 166.67 MG IV ×2 (08:22→20:12)
[2024-07-13] MEDS: Furosemide 20 MG/2 ML VIAL IVPUSH (08:25)
[2024-07-13] MEDS: Metoprolol Succinate ER 50 MG TAB.ER.24H PO (08:25)
[2024-07-13] MEDS: Enoxaparin Sodium 80 MG/0.8 ML SYRINGE 70 MG SUBCUT ×2 (08:26→20:15)
[2024-07-13] MEDS: Sennosides/Docusate Sodium TABLET 1 TAB PO ×2 (08:26→21:48)
[2024-07-13] MEDS: 0.9 % Sodium Chloride Flush 3 ML SYRINGE IVFLUSH ×2 (08:38→17:14)
--- NOTE | 2024-07-13 10:18 | HO.PM.IMPN ---
Subjective Subjective Date of Service: 07/13/24 Interval History: seen and evaluated this morning less anxious and but remains restless and agitated WBCs and LFT trended down No other events Review of Systems Review of Systems: Yes all other systems are reviewed and are negative Physical Exam Vital Signs: Vital Signs: Last Vital Signs Temp 97.9 F 07/13/24 07:25 Pulse 98 07/13/24 07:25 Resp 18 07/13/24 07:25 BP 186/93 H 07/13/24 07:25 Pulse Ox 94 07/13/24 07:25 O2 Del Method Nasal Cannula 07/13/24 07:25 O2 Flow Rate 2 07/13/24 07:25 BMI result Body Mass Index 31.2 Const: Other: Constitutional : interactive but altered, restless, not in distress Cardiovascular : no JVP, no lower extremity edema Respiratory : bilateral chest movement, fair bilateral air entry Gastrointestinal: soft, lax, Non tender Skin : Warm, Dry Neurological : Alert & disoriented, restless , moving all extremities Objective Data Active Medications Acetaminophen (Acetaminophen 325 Mg Tablet) 650 mg PO Q6H PRN PRN Reason: Pain, Mild 1-3,fever,headache Albuterol/Ipratropium (Albuterol/Iprat 2.5/0.5mg 3 Ml Ampul.Neb) 3 ml INHALE Q4H PRN PRN Reason: Shortness of Breath/Wheezing Amiodarone HCl (Amiodarone Hcl 200 Mg Tablet) 200 mg PO DAILY [facility] Last Admin: 07/12/24 11:41 Dose: Not Given Documented By: SHERIF Non-Admin Reason: PT NOT SAFE TO TAKE MEDS, IM SEDATION Calcium Carbonate (Calcium Carbonate 750 Mg Tab.Chew) 750 mg PO Q4H PRN PRN Reason: Heartburn Ceftriaxone Sodium (Ceftriaxone Sodium 1 Gm Vial) 1 gm IVPUSH Q24H [facility] Last Admin: 07/12/24 18:39 Dose: 1 gm Documented By: VLADIMIR Dextrose (Dextrose 50 % 25 Gm/50 Ml Syringe) 25 gm IVPUSH Q15M PRN; Protocol PRN Reason: per Hypoglycemia Standing Ord. Enoxaparin Sodium (Enoxaparin Sodium 80 Mg/0.8 Ml Syringe) 70 mg 1 mg/kg (70 mg) SUBCUT Q12H [facility] Last Admin: 07/13/24 08:26 Dose: 70 mg Documented By: VLADIMIR Furosemide (Furosemide 20 Mg/2 Ml Vial) 20 mg IVPUSH DAILY [facility]; Protocol Last Admin: 07/13/24 08:25 Dose: 20 mg Documented By: VLADIMIR Glucose (Glucose Gel 15 Gm Gel..Gram.) 15 gm PO Q15M PRN; Protocol PRN Reason: per Hypoglycemia Standing Ord. Hydralazine HCl (Hydralazine Hcl 20 Mg/Ml Vial) 10 mg IVPUSH Q6H PRN; Protocol PRN Reason: SBP > 160 Doxycycline Hyclate 100 mg/ (Sodium Chloride) 250 mls @ 166.67 mls/hr IV Q12H [facility] Last Admin: 07/13/24 08:22 Dose: 166.67 mls/hr Documented By: VLADIMIR Dextrose/Sodium Chloride (D5ns) 1,000 mls @ 75 mls/hr IVCONT .[id number] [facility] Last Admin: 07/13/24 01:41 Dose: 75 mls/hr Documented By: DANIEL Insulin Human Lispro (Insulin Lispro 100 Unit/Ml 3 Ml Vial) 0 unit SUBCUT QIDACHS [facility]; Protocol Last Admin: 07/13/24 08:21 Dose: 4 unit Documented By: VLADIMIR Latanoprost (Latanoprost 0.005 % Ophth Liseth 2.5 Ml Drops) 1 drop EYE-BOTH BEDTIME [facility] Last Admin: 07/12/24 23:05 Dose: Not Given Documented By: SURESH Non-Admin Reason: Med Not Available Levothyroxine Sodium (Levothyroxine Sodium 150 Mcg Tablet) 150 mcg PO DAILY@0600 [facility] Last Admin: 07/13/24 06:53 Dose: 150 mcg Documented By: DANIEL Magnesium Hydroxide (Milk Of Magnesia 30 Ml Oral.Susp) 30 ml PO DAILY PRN PRN Reason: Constipation Metoprolol Succinate (Metoprolol Succinate Er 50 Mg Tab.Er.24h) 50 mg PO DAILY [facility]; Protocol Last Admin: 07/13/24 08:25 Dose: 50 mg Documented By: VLADIMIR Olanzapine (Olanzapine 10 Mg Vial) 2.5 mg IM ONCE PRN PRN Reason: anxiety/restlessness Last Admin: 07/12/24 22:20 Dose: 2.5 mg Documented By: SURESH Ondansetron HCl (Ondansetron Hcl 4 Mg/2 Ml Vial) 4 mg IVPUSH Q8H PRN PRN Reason: Nausea and Vomiting Polyethylene Glycol (Polyethylene Glycol 3350 17 Gm Powd.Pack) 17 gm PO DAILY PRN PRN Reason: Constipation Senna (Sennosides 8.6 Mg Tablet) 17.2 mg PO BEDTIME [facility] Last Admin: 07/12/24 20:29 Dose: 17.2 mg Documented By: SURESH Senna/Docusate Sodium (Sennosides/Docusate Sodium Tablet) 1 tab PO BID [facility] Last Admin: 07/13/24 08:26 Dose: 1 tab Documented By: VLADIMIR Sodium Chloride (0.9 % Sodium Chloride Flush 3 Ml Syringe) [facility] Last Admin: 07/13/24 08:38 Dose: 3 ml Documented By: VLADIMIR Trazodone HCl (Trazodone Hcl 50 Mg Tablet) 12.5 mg PO BID PRN PRN Reason: Anxiety Last Admin: 07/13/24 01:52 Dose: 12.5 mg Documented By: DANIEL Labs 07/13/24 06:59 07/13/24 06:59 Labs: Laboratory Results - last 24 hr 07/12/24 07/12/24 07/12/24 11:47 16:04 16:30 MCV MCH MCHC RDW Plt Count MPV Immature Gran % (Auto) Neut % (Auto) Lymph % (Auto) Leon % (Auto) Eos % (Auto) Baso % (Auto) Lymph # (Auto) Leon # (Auto) Eos # (Auto) Baso # (Auto) Abs Immat Gran (auto) Absolute Neuts (auto) Absolute Nucleated RBC Nucleated RBC % (auto) Anion Gap Estim Creat Clear Calc Estimated GFR POC Glucose 123 H 132 H 132 H Random Glucose Calcium 07/12/24 07/13/24 07/13/24 20:26 03:38 06:59 MCV 100.3 H MCH 32.8 MCHC 32.7 RDW 18.1 H Plt Count 261 MPV 10.6 Immature Gran % (Auto) 0.9 H Neut % (Auto) 76.4 H Lymph % (Auto) 8.9 L Leon % (Auto) 11.1 H Eos % (Auto) 1.6 Baso % (Auto) 1.1 Lymph # (Auto) 0.7 L Leon # (Auto) 0.9 Eos # (Auto) 0.1 Baso # (Auto) 0.1 Abs Immat Gran (auto) 0.07 H Absolute Neuts (auto) 6.3 Absolute Nucleated RBC 0.000 Nucleated RBC % (auto) 0.0 Anion Gap 14 Estim Creat Clear Calc 36.3 Estimated GFR 54 POC Glucose 160 H 204 H Random Glucose 229 H Calcium 8.9 07/13/24 07:11 MCV MCH MCHC RDW Plt Count MPV Immature Gran % (Auto) Neut % (Auto) Lymph % (Auto) Leon % (Auto) Eos % (Auto) Baso % (Auto) Lymph # (Auto) Leon # (Auto) Eos # (Auto) Baso # (Auto) Abs Immat Gran (auto) Absolute Neuts (auto) Absolute Nucleated RBC Nucleated RBC % (auto) Anion Gap Estim Creat Clear Calc Estimated GFR POC Glucose 211 H Random Glucose Calcium Microbiology Microbiology Results: Microbiology 07/11/24 17:39 Blood Culture - Preliminary Blood - Venous No growth after 24 hours. 07/11/24 16:59 Blood Culture - Preliminary Blood - Venous No growth after 24 hours. Assessment and Plan (1) Transaminitis: Status: Acute (2) CHF exacerbation: Status: Acute (3) Metabolic encephalopathy: Status: Acute (4) Pneumonia: Status: Acute Plan Patient is an 88-year-old female currently residing at [facility] status post a right hip repair 2-1/2 months prior has past medical history of hypertension, UTI, hyperlipidemia, atrial fibrillation on anticoagulation, dementia not formally diagnosed, systolic and diastolic heart failure, hypothyroidism, insulin-dependent diabetes mellitus, chronic constipation on lactulose, dry macular degeneration, and JADYN not on CPAP is being admitted for acute systolic/diastolic heart failure exacerbation, bilateral pneumonia lower lobes and altered mental status with somnolence. Acute toxic Metabolic encephalopathy, resolved Confusion and restlessness 2/2 advanced dementia and acute infection w Pneumonia CT of the head negative VBG normal CO2 level, PH level, Bicarb Ammonia level 43 LFT mildly elevated UA clean Antibiotics started for bilateral pneumonia recurrent reorientation Zyprexa/Seroquel as needed for restlessness Acute systolic/diastolic heart failure exacerbation Pulmonary edema and bilateral pleural effusions noted on CXR Continue IV Lasix Wean O2 down as tolerated Daily weights, fluid restriction Last echo 06/16/2024 notes an EF of 51% Community-acquired pneumonia CT scan confirmed bilateral opacities, right greater than left with noted pleural effusions bilaterally as well continue ceftriaxone and doxycycline Oxygen via nasal cannula in place. nebulizer treatments PRN Hypoglycemia in DMII dc D5W encourage PO intake monitor POC Transaminitis trending down likely related to fluid overload and acute infection Avoid hepatotoxic medications Ulcer of right ankle Patient is followed for this at rehab facility. Dressing is currently clean and dry Wound care consulted for follow-up here during this admission Nutritional status has normally been stable. Persistent AFib rate controlled Weight based Lovenox started for Xaralto (1/2 life 9 hours) Hold amiodarone , decrease Metoprolol for reported bradycardia Constipation went 6 days without a bowel movement Dulcolax prn suppository Lactulose if needed Hypothyroidism restart 150 mcgs of levothyroxine normal TSH with reflex Lovenox for DVT prophylaxis Pt will require overnight hospitalization due to altered mentation, CHF exacerbation and PNA. Quality Stroke Does the patient have a stroke diagnosis?: No Reason for No Anti-thrombotic by Day Two: N/A - Med Ordered VTE Prior VTE?: No VTE Risk Level:: Medical - moderate - high VTE Device Contraindication: Treatment Not Tolerated VTE Drug Contraindication: N/A - Med Ordered
[2024-07-13] MEDS: QUEtiapine Fumarate 25 MG TABLET PO ×2 (11:00→21:55)
[2024-07-13 11:43] VITALS: BP 96/74; PULSE 93; RESP 18; TEMP 36.8; O2SAT 96
[2024-07-13 11:50] LABS: Glucose, Whole Blood 174 mg/dL (60-115)
[2024-07-13 16:00] VITALS: BP 171/77; PULSE 85; RESP 18; TEMP 36.4; O2SAT 96
[2024-07-13 16:06] LABS: Glucose, Whole Blood 151 mg/dL (60-115)
[2024-07-13] MEDS: cefTRIAXone sodium 1 GM VIAL IVPUSH (18:18)
[2024-07-13 19:51] VITALS: BP 158/69; PULSE 88; RESP 16; TEMP 36.5; O2SAT 95
[2024-07-13] MEDS: ondansetron HCL 4 MG/2 ML VIAL IVPUSH (20:10)
[2024-07-13 20:21] LABS: Glucose, Whole Blood 256 mg/dL (60-115)
--- NOTE | 2024-07-13 20:29 | PC.NURSE ---
Addendum entered by Shaina Lopez RN 07/14/24 06:30: Patient was much more calm, less anxious and restless overnight with sitter. Addendum entered by Shaina Lopez RN 07/13/24 23:44: Pt remains restless, pulling off tele monitor and clothes frequently tonight, as well as pulling at lines and attempting to get OOB despite prn seroquel. clinical program consultant, training personnel supervisor, and MD made aware. 1:1 sitter placed at ~23:00 to assist with redirecting and maintaining safety. Addendum entered by Shaina Lopez RN 07/13/24 22:04: Patient denied nausea on reassessment. Scheduled po meds and prn seroquel given per JUN in pudding. Pt tolerated without issue. Latanoprost not stocked in pt bin; requested med from pharmacy and awaiting arrival at this time of writing. Original Note: Assumed care of patient at 19:00. Pt A&Ox1 to self only. Pt's daughter was present at the bedside and reported to junior underwriter pt c/o nausea this evening. Pt confirmed c/o nausea and was given prn zofran. POC obtained per ACHS orders was 256. ISS discussed with pt's daughter as she requested; pt's daughter requested not to give this med and reported pt having decreased po intake. Covering Dr. Gould made aware with written orders to hold ISS.
[2024-07-13] MEDS: Sennosides 8.6 MG TABLET 17.2 MG PO (21:48)
[2024-07-13] MEDS: Latanoprost 0.005 % Ophth Sol 2.5 ML DROPS 1 DROP EYE-BOTH (23:50)
[2024-07-14] VITALS: BP 179/89; PULSE 84; RESP 16; TEMP 37.3; O2SAT 89
[2024-07-14 03:11] VITALS: BP 140/80; PULSE 92; RESP 16; TEMP 36.4; O2SAT 92
[2024-07-14] MEDS: Levothyroxine Sodium 150 MCG TABLET PO (06:27)
[2024-07-14 07:16] VITALS: BP 138/72; PULSE 72; RESP 19; TEMP 36.6; O2SAT 95
[2024-07-14 07:34] LABS: Glucose, Whole Blood 232 mg/dL (60-115)
[2024-07-14] MEDS: Enoxaparin Sodium 80 MG/0.8 ML SYRINGE 70 MG SUBCUT (08:44)
[2024-07-14] MEDS: Metoprolol Succinate ER 50 MG TAB.ER.24H PO (08:45)
[2024-07-14] MEDS: Insulin Lispro 100 UNIT/ML 3 ML VIAL SUBCUT (08:45)
[2024-07-14] MEDS: Doxycycline Monohydrate 100 MG CAPSULE PO (08:45)
[2024-07-14] MEDS: Furosemide 20 MG/2 ML VIAL IVPUSH (08:46)
[2024-07-14] MEDS: 0.9 % Sodium Chloride Flush 3 ML SYRINGE IVFLUSH (08:46)
[2024-07-14] MEDS: Sennosides/Docusate Sodium TABLET 1 TAB PO (08:46)
--- NOTE | 2024-07-14 10:31 | MHC.SL.SWA ---
Speech Pathologist Impression: Risk of Aspiration d/t Confusion Risk of Aspiration Due to: Reduced Cognition Dysphasia Diet Status: Hx dementia Liquid Consistency and Strategies for Safe Swallow: Liquid Intake Recommendation: Thin Liquid Intake Strategies: Small Sips No Straws Solid Food Consistency: Dietary Recommendations: Regular Additional Modifications to Solid Foods: Recommend REGULAR texture diet and THIN liquids, which is patient's baseline diet. Paperwork from [facility] indicates patient was taking her pills CRUSHED in PUREE. Patient will need 1:1 supervision at meal time in setting of dementia, may need assistance with tray set up and cues/re-orientation during feeding. Oral Medication Intake: Crushed with Puree Please contact the pharmacy regarding appropriate crushable or liquid drug formulations that are available whenever modified delivery is recommended. Compensatory Strategies and Precautions to be Taken for Safe Swallow: Sitting Upright (90 deg) No Straw Small Bites and Sips Alternate Liquids/Solids Rate of Ingestion Change Supervision While Eating and Drinking for Safe Swallow: Total Supervision (1:1) Swallowing Recommended Treatments: Recommendation for Speech: Inpatient Speech Therapy Comment: 1 f/u to monitor tolerance Cardiovascular Sonographer Clinican/Clinical Fellow: No Supervisory Statement: I have reviewed and agree with the student/clinical fellow's documentation: N/A Speech Language Pathologist: Rosmery Li M.A., CCC-DRAWING IN HAND
[2024-07-14 11:13] VITALS: BP 154/68; PULSE 80; RESP 17; TEMP 36.2; O2SAT 95
[2024-07-14 11:31] LABS: Glucose, Whole Blood 247 mg/dL (60-115)
--- NOTE | 2024-07-14 12:29 | PM.DS ---
DS: Providers Provider Date of Service: 07/14/24 Date of admission: 07/11/24 19:42 Date of discharge: 07/14/24 Primary care physician: Monique White MD Consults: 07/11/24 19:51 Consult to Wound Care Routine Reason for consultation: R medial ankle ulcer DS: Diagnosis Discharge Diagnosis (1) Transaminitis: Status: Acute (2) CHF exacerbation: Status: Acute (3) Metabolic encephalopathy: Status: Acute (4) Pneumonia: Status: Acute (5) Constipation: Status: Acute DS: Summary Hospital Course Hospital Course: Admission note HPI Patient is an 88-year-old female currently residing at [facility] status post a right hip repair 2-1/2 months prior has past medical history of hypertension, UTI, hyperlipidemia, atrial fibrillation on anticoagulation, dementia not formally diagnosed, systolic and diastolic heart failure, hypothyroidism, insulin-dependent diabetes mellitus, chronic constipation on lactulose, dry macular degeneration, and JADYN not on CPAP presents to the emergency room department secondary to profound altered mental status with a level of somnolence and suspected CHF overload. Workup in the emergency room identified evidence of CHF exacerbation with pulmonary edema and bilateral pleural effusions and a CT scan of the chest was also completed due to suspicion for pneumonia and a bilateral lower lobe pneumonia was found. All viral studies were negative. Patient's lactic acid is 1.2, CRP 3.48, BNP 541, troponin 8.4 and notably AST 235, ALT 208 with the T bili normal 0.6. Patient was started on doxycycline and ceftriaxone. Echo recently done 06/16/2024 noted EF of 51%, moderate aortic stenosis, mild mitral calcification, mild pulmonary hypertension and akinesis of the basal and basal inferior segments. Patient follows with cardiology group here at [place].Patient is seen in the emergency room for interview and patient's daughter was present. Patient somnolent unresponsive even to sternal rub. Pulse ox 100% on 2 L nasal cannula. Heart rate 56-66 AFIB. Patient is afebrile. Temp 98.3. Patient has a noted leukocytosis. VBG 7.4, 43, [address] performed in the ED was negative for any acute findings. LFTs elevated. Daughter was patient's caregiver prior to being admitted to [facility] for rehab status post hip replacement. Daughter is also a pharmacist and expressed concerns at day broke that the provider was holding patient's Lasix due to an elevated BUN over the last few days. In addition, daughter felt the insulin rate was too high but there was no issue with hypoglycemia. Patient's blood sugar currently is 106 mg/dL. Patient uses lactulose to help with severe constipation and likely did not have any lactulose over the last 48 hours per daughter's report. Daughter does state that she wants the patient to return to [facility] as daughter lives just a mile away. Patient likely will become a permanent resident at this facility. Workup continues to investigate the metabolic encephalopathy noting patient has elevated liver enzymes. Patient may have evidence of mild shock liver but lactic acid is within normal limits. We will hold off on CT of the abdomen and pelvis. If LFTs worsen further, will need to consider an ultrasound limited. Patient has received mild hydration and then received 20 mg of Lasix IV x1. Stat ammonia level and stat ABG have been ordered. Pt being admitted for Acute systolic/diastolic exacerbation, B PNA. Pt does not meet the criteria for SIRS at this time. Hospital course The patient was treated for the following: # Acute toxic Metabolic encephalopathy with Confusion and restlessness secondary to advanced dementia and acute infection w Pneumonia. CT of the head negative. Ammonia level 43. UA clean. CT chest showed bilateral pneumonia and pleural effusions that were treated with IV antibiotics with good response. She remained anxious and restless requiring change in hmedications as Trazodone discontinued and she needed Zyprexa IM doses then switched to Seroquel 25 mg PRN with improvement as she became less agitated and willing to participate with care as she had PT session and took her medications as planned. She will need recurrent reorientation and redirection. To continue with Seroquel as needed for restlessness on discharge. # Acute systolic/diastolic heart failure exacerbation Pulmonary edema and bilateral pleural effusions noted on CXR. Responded well to IV Lasix as she was weaned off O2. Daily weights, fluid restriction and low sodium diet. Her Last echo 06/16/2024 notes an EF of 51%. To increase Lasix to 40 mg daily at time of discharge. monitor blood work as scheduled at [facility] weekly. # Community-acquired pneumonia CT scan confirmed bilateral opacities, right greater than left with noted pleural effusions bilaterally as well. Treated with IV Ceftriaxone and doxycycline with good response as she was weaned off O2. Continue Antibiotics for 5 more days on discharge. Incentive spirometry if tolerated at SNF. # Hypoglycemia in DMII, resolved with D5W usage. encourage PO intake. Decrease Lantus to 10 units for now. # Transaminitis, noted on admission, likely related to fluid overload and acute infection as it trended down with diuresis. follow as outpatient as needed. # Ulcer of right ankle, Patient is followed for this at rehab facility. Dressing is currently clean and dry. Wound care consulted and will continue with dressing. # Persistent AFib, rate controlled. Continue amiodarone and Metoprolol along with Xarelto. # Constipation , went 6 days without a bowel movement, Dulcolax prn suppository , Lactulose if no BM in 2 days. Discharge plan Stop Trazodone Start Seroquel 25 mg bid as needed for restlessness , give between 5-7 pm Continue Doxycycline and Ceftin for 5 more days Increase Lasix to 40 mg daily Decrease Lantus insulin to 10 units only Monitor weight, fluid status and blood work recurrent redirection Time Attestation Discharge Coordination Time (in mins): 47 Quality: Safe Use of Opioids Does Pt have an Active Cancer Diagnosis on the Problem List?: No Quality: Stroke Does the patient have a stroke diagnosis?: No Physical Exam Vital Signs: Vital Signs: Last Vital Signs Temp 97.1 F 07/14/24 11:13 Pulse 80 07/14/24 11:13 Resp 17 07/14/24 11:13 BP 154/68 H 07/14/24 11:13 Pulse Ox 95 07/14/24 11:13 O2 Del Method Room Air 07/14/24 11:13 O2 Flow Rate 2 07/14/24 03:11 BMI result Body Mass Index 31.2 Const: Other: Constitutional : interactive but altered, less restless, not in distress Cardiovascular : no JVP, no lower extremity edema Respiratory : bilateral chest movement, fair bilateral air entry , basal fine crackles, on room air Gastrointestinal: soft, lax, Non tender Skin : Warm, Dry Neurological : Alert & disoriented, less restless , moving all extremities DS: Data Data Completed and Pending Completed studies during hospitalization [Text1]: Procedures Introduction of Remdesivir Anti-infective into Peripheral Vein, Percutaneous Approach, [employer] 5 (08/17/21) Reposition Right Lower Femur with Intramedullary Internal Fixation Device, Percutaneous Approach (04/19/24) Druze of Cardiac Rhythm, Single (06/01/20) Transfusion of Nonautologous Red Blood Cells into Peripheral Vein, Percutaneous Approach (04/19/24) Labs on day of discharge: Laboratory Results - last 24 hr 07/13/24 07/13/24 07/14/24 16:03 20:10 07:31 POC Glucose 151 H 256 H 232 H 07/14/24 11:27 POC Glucose 247 H Preliminary micro results at discharge 07/11/24 17:39 Blood Culture - Preliminary Blood - Venous No growth after 48 hours. 07/11/24 16:59 Blood Culture - Preliminary Blood - Venous No growth after [address] scan - chest: Radiologist's impression: ITS Impressions Chest X-Ray 07/11/24 15:00 IMPRESSION: Cardiomegaly, pulmonary vascular congestion, small bilateral pleural effusions. Electronically signed by: Akbar Denson MD 07/11/2024 03:56 PM EDT RP Discharge Plan Discharge Anticipated Discharge Date/Time: 07/14/24 12:10 Patient Disposition: Xfer SNF Discharge Diagnosis: Pneumonia Heart failure exacerbation Referrals: Po,Monique Wesley MD [Primary Care Provider] - 1 Week Discharge Medications: New doxycycline monohydrate 100 mg Capsule 100 mg PO Q12H Qty: 10 0RF cefuroxime axetil 250 mg tablet 500 mg PO BID Qty: 10 0RF quetiapine 25 mg Tablet 25 mg PO BID PRN (Reason: Anxiety/Restlessness) Qty: 60 0RF Continued cholecalciferol (vitamin D3) 25 mcg (1,000 unit) capsule 25 mcg PO DAILY (DME) FreeStyle Madeline 14 Day Sensor Kit See Rx Instructions .ROUTE .MEDSUPPLY Qty: 1 6RF Rx Instructions: Dx: E11.65 As directed, 14 days (DME) FreeStyle Madeline 14 Day Sensor Kit See Rx Instructions .Route Qty: 6 3RF Rx Instructions: As directed metoprolol succinate 100 mg tablet extended release 24 hr 100 mg PO DAILY 90 Days Qty: 90 3RF amiodarone 200 mg tablet 200 mg PO DAILY 90 Days Qty: 90 2RF lactulose 10 gram/15 mL solution 30 ml PO DAILY PRN (Reason: for constipation) Qty: 946 0RF simvastatin 10 mg tablet 10 mg PO BEDTIME Qty: 90 0RF travoprost 0.004 % drops 1 drp ophthalmic (eye) BEDTIME acetaminophen 500 mg Tablet 1,000 mg PO TID PRN (Reason: Pain) insulin lispro [Humalog KwikPen Insulin] 100 unit/mL insulin pen 1 sliding scale dose subcut TIDAC Protocol: Insulin Correction Scale Less than or equal to 110 ---- Give (units): 0 111 to 150 Give (units): 0 151 to 200 Give (units): 2 201 to 250 Give (units): 4 251 to 300 Give (units): 6 301 to 350 Give (units): 8 Greater than 350 Give (units): 10 Call MD if Blood Glucose > : 350 sennosides-docusate sodium [Senna with Docusate Sodium] 8.6-50 mg Tablet 1 tab-cap PO BID levothyroxine 150 mcg Tablet 150 mcg PO DAILY@0600 furosemide 20 mg Tablet 20 mg PO DAILY PRN (Reason: 3lb+ weight gain) PreserVision AREDS-2 250-90-40-1 mg Capsule 1 tab PO DAILY magnesium hydroxide 400 mg/5 mL Suspension 30 ml PO DAILY PRN (Reason: Constipation) bisacodyl 10 mg Suppository 10 mg RI DAILY PRN (Reason: Constipation) Fleet Enema 19-7 gram/118 mL Enema 118 ml RI DAILY PRN (Reason: Constipation) metoprolol tartrate 25 mg Tablet 25 mg PO BEDTIME PRN (Reason: HTN) calcitriol 0.25 mcg capsule 0.25 mcg PO Q48H Xarelto 15 mg tablet 15 mg PO DAILY@1700 (DME) pen needle, diabetic [BD Eveline 2nd Gen Pen Needle] 32 gauge x 5/32 needle See Rx Instructions .ROUTE .COMPLEX Qty: 400 3RF Dose Instruction: USEN TO INJECT INSULIN FOUR TIMES DAILY Rx Instructions: USEN TO INJECT INSULIN FOUR TIMES DAILY gabapentin 300 mg capsule 100 mg PO BID melatonin 5 mg capsule 5 mg PO BEDTIME PRN (Reason: insomnia) Changed furosemide 40 mg tablet 40 mg PO DAILY Qty: 90 0RF insulin glargine U-300 conc [Toujeo SoloStar U-300 Insulin] 300 unit/mL (1.5 mL) insulin pen 10 unit subcut DAILY Qty: 4.5 0RF Rx Instructions: or as directed Discontinued trazodone 50 mg Tablet 12.5 mg PO BID PRN (Reason: Anxiety) Discharge Orders: Discharge Order (Routine); Ordered 07/14/24 Ordered By: Pricilla Mas Diet: Low salt diet Activity on Discharge: As tolerated Stand Alone Forms: Patient Portal Discharge page Print Language: Italian Care Plan Goals: Stop Trazodone Start Seroquel 25 mg bid as needed for restlessness , give between 5-7 pm Continue Doxycycline and Ceftin for 5 more days Increase Lasix to 40 mg daily Decrease Lantus insulin to 10 units only Monitor weight, fluid status and blood work recurrent redirection Health Concerns: Pneumonia Heart failure excerbation Plan of Treatment: Antibiotics Lasix Assessment: as above
--- NOTE | 2024-07-14 13:00 | HO.WOUND ---
Wound Consult: Initial 88yr old female admitted to [facility] on 07/11/24 - See progress notes and H&P for detailed history.? Wound consult placed for Right Ankle wound.? Patient agreeable to assessment and photo documentation.? Right Medial Ankle Etiology: ??Diabetic Wound Present on Admission Measurements: 0.8cm x 1.2cm x 0.2cm Wound Bed: dry stable scab Drainage / Odor: None Edges: ? well defined [place] wound: Intact pink hyperpigmented tissue ? No Induration, Fluctuance or Warmth noted Pain: tenderness reported Goals of Treatment: ? Betadine to keep stable and dry. Recommendations: 1. Turn and Reposition every 2 hours and as needed for patient comfort.? Use pillows or wedges to support off loading positions. 2. Off Load all bony prominences with use of pillows and heel boots if needed.? Apply Preventative foams where needed. ? 3. Monitor for incontinence and moisture control, use barrier creams when needed for prevention and treatment. 4. Provide adequate and supplemental nutrition.? 5. Continue low air loss mattress. 6. When applicable maintain blood glucose levels per Providers order. 7. Right Medial Ankle - [place] with Betadine allow to dry. Keep dry and stable. Re-consult wound care Nurse for wound deterioration or wound changes.
--- NOTE | 2024-07-14 14:04 | MHC.CM.PN ---
Pt has been medically cleared to DC, she will return to [facility] via BLS.
== END 2024-07-14 14:35 | disposition skilled nursing facility (03) | DRG 291 ==
LOC: HO.ED 18:24 → HO.EDOVER 19:51 → HO.IMC 07-12 15:06
PROVIDERS: Student in an Organized Health Care Education/Training Program; Admitting Provider Nurse Practitioner Family; Emergency Provider Emergency Medicine; PCP Internal Medicine; Visit Provider Student in an Organized Health Care Education/Training Program
DX: I11.0 Hypertensive heart disease with heart failure (principal); G92.8 Other toxic encephalopathy; I50.43 Acute on chronic combined systolic (congestive) and diastolic (congestive) heart failure; J18.9 Pneumonia, unspecified organism; N39.0 Urinary tract infection, site not specified; I48.19 Other persistent atrial fibrillation; J91.8 Pleural effusion in other conditions classified elsewhere; F03.90 Unspecified dementia, unspecified severity, without behavioral disturbance, psychotic disturbance, mood disturbance, and anxiety; E11.649 Type 2 diabetes mellitus with hypoglycemia without coma; K59.09 Other constipation; E11.621 Type 2 diabetes mellitus with foot ulcer; L97.519 Non-pressure chronic ulcer of other part of right foot with unspecified severity; G47.33 Obstructive sleep apnea (adult) (pediatric); I25.10 Atherosclerotic heart disease of native coronary artery without angina pectoris; E03.9 Hypothyroidism, unspecified; Z20.822 Contact with and (suspected) exposure to COVID-19; Z87.440 Personal history of urinary (tract) infections; Z79.4 Long term (current) use of insulin; Z79.01 Long term (current) use of anticoagulants; Z79.890 Hormone replacement therapy; Z79.899 Other long term (current) drug therapy
CPT/HCPCS: 0241U; 36415; 36600; 70450; 71045; 71250; 73552; 80048; 80053; 80076; 80307; 81001; 82140; 82803; 82947; 83605; 83735; 83880; 84484; 85025; 85027; 85610; 85730; 86140; 87040; 92610; 93005; 97162; 99285; J0651; J0696; J1650; J1940; J2359; J2405

== ENCOUNTER → 2024-07-11 14:59 | Outpatient (BNV) | payer MEDICARE, SELFPAY | PROVIDERS: Admitting Provider Nurse Practitioner Family; Emergency Provider Emergency Medicine; PCP Internal Medicine; Visit Provider Internal Medicine | DX: I48.91 Unspecified atrial fibrillation (principal); I25.2 Old myocardial infarction | CPT/HCPCS: 93010 ==

== ENCOUNTER → 2024-07-11 15:00 | Outpatient (BNV) | payer MEDICARE, SELFPAY | PROVIDERS: Emergency Provider Emergency Medicine; PCP Internal Medicine; Visit Provider Radiology Diagnostic Radiology | DX: J90 Pleural effusion, not elsewhere classified (principal); J18.9 Pneumonia, unspecified organism; I51.7 Cardiomegaly; I25.10 Atherosclerotic heart disease of native coronary artery without angina pectoris; R41.82 Altered mental status, unspecified | CPT/HCPCS: 71045 ==

== ENCOUNTER → 2024-07-11 19:42 | Outpatient (BNV) | payer MEDICARE, SELFPAY | PROVIDERS: Admitting Provider Nurse Practitioner Family; Emergency Provider Emergency Medicine; PCP Internal Medicine; Visit Provider Nurse Practitioner Family | DX: G93.41 Metabolic encephalopathy (principal); I50.43 Acute on chronic combined systolic (congestive) and diastolic (congestive) heart failure; J18.9 Pneumonia, unspecified organism; L97.319 Non-pressure chronic ulcer of right ankle with unspecified severity; I48.19 Other persistent atrial fibrillation; R74.01 Elevation of levels of liver transaminase levels; N39.0 Urinary tract infection, site not specified; K59.01 Slow transit constipation; E03.9 Hypothyroidism, unspecified | CPT/HCPCS: 99223; 99232; 99239; 99499 ==

== ENCOUNTER 2024-07-26 20:48 | Emergency (ER) | payer MEDICARE, SELFPAY ==
--- NOTE | ~2024-07-26 | CT_ITS ---
CLINICAL HISTORY: fall CT head without contrast Comparison: Head CT from 07/11/2024 Findings: No acute intracranial hemorrhage. Mild-moderate white matter lesions likely due to small-vessel ischemic disease. Small old basal ganglia region lacunar infarctions. No large arterial territorial infarction. Mild-moderate volume loss is generalized. No midline shift or hydrocephalus. 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 Left middle cranial fossa arachnoid cyst measures 1.0 cm. Partially empty sella. Vascular calcifications are redemonstrated. Mild mucosal thickening of the imaged paranasal sinuses. Imaged mastoid air cells are well aerated. No acute skull fracture. IMPRESSION: 1. No acute intracranial abnormality by CT and no significant change when compared to 07/11/2024. This document has been electronically signed by: Michael Mares MD on 07/26/2024 22:27:59
--- NOTE | ~2024-07-26 | CT_ITS ---
CLINICAL HISTORY: fall CT cervical spine without contrast Comparison: None Findings: No acute fracture cervical spine. Mild reversal of the cervical lordosis. Left-sided C3-C4 facet fusion. Additional facet arthropathy is multifocal. Ligament calcifications noted including prominent ligamentum flavum of the cervicothoracic junction and nuchal ligament including adjacent to C7 spinous process. Posterior longitudinal ligament calcifications most pronounced of the craniocervical junction with transversely arcuate ligament calcifications. Mild spinal stenosis with mild-moderate foraminal narrowing including C3-C4 to C6-C7. No paraspinal hematoma. Vascular calcifications are multifocal. Small pleural effusions, right worse than left with underlying atelectasis in the [id number]. Secretions noted in the imaged trachea. IMPRESSION: 1. No acute fracture of the cervical spine. 2. Pleural effusions partially imaged in the [id number]. This document has been electronically signed by: Micheal Mares MD on 07/26/2024 22:24:57
--- NOTE | ~2024-07-26 | XR_ITS ---
CLINICAL HISTORY: cough 1 view chest x-ray Comparison: Chest x-ray from 07/11/2024 Findings: No significant change in small bilateral pleural effusions, right worse than left. Interstitial opacities are nonspecific but may reflect pneumonitis, recurrent pulmonary edema, and mild residual edema. No pneumothorax. Cardiomegaly redemonstrated. Degenerative changes again noted of the imaged shoulders and imaged AC joints. IMPRESSION: 1. Small pleural effusions, right worse than left. 2. Mild interstitial opacities are nonspecific and may reflect mild recurrent pulmonary edema. This document has been electronically signed by: Michael Mares MD on 07/26/2024 22:59:18
--- NOTE | 2024-07-26 21:03 | ED_ITS ---
HPI - Fall General Chief Complaint: Fall Stated Complaint: fall, no loc, bloodthinners, dementia , jesús Time Seen by Provider: 07/26/24 20:52 Source: family, EMS and RN notes reviewed Mode of arrival: EMS Limitations: altered mental status History of Present Illness ED Provider: HPI Narrative: Patient's history of atrial fibrillation on Xarelto, dementia came from senior care for fall apparently patient was on recliner tried to get up without asking for help, no loss of consciousness , fall was unwitnessed no bony deformity no skin breakdown Related Data Home Medications ?Medication ?Instructions ?Recorded ?Confirmed travoprost 0.004 % eye drops 1 drp ophthalmic (eye) BEDTIME 06/01/20 07/11/24 acetaminophen 500 mg tablet 1,000 mg PO TID PRN Pain 08/17/21 07/11/24 cholecalciferol (vitamin D3) 25 25 mcg PO DAILY 01/01/23 07/11/24 mcg (1,000 unit) capsule insulin lispro 100 unit/mL 1 sliding scale dose subcut TIDAC 11/17/23 07/11/24 subcutaneous pen (Humalog KwikPen (U-100) Insulin) calcitriol 0.25 mcg capsule 0.25 mcg PO Q48H 04/20/24 07/11/24 rivaroxaban 15 mg tablet (Xarelto) 15 mg PO DAILY@1700 04/20/24 07/11/24 melatonin 5 mg capsule 5 mg PO BEDTIME PRN insomnia 05/05/24 07/11/24 gabapentin 300 mg capsule 100 mg PO BID 07/09/24 07/11/24 bisacodyl 10 mg rectal suppository 10 mg MN DAILY PRN Constipation 07/12/24 07/12/24 furosemide 20 mg tablet 20 mg PO DAILY PRN 3lb+ weight gain 07/12/24 07/12/24 levothyroxine 150 mcg tablet 150 mcg PO DAILY@0600 07/12/24 07/12/24 magnesium hydroxide 400 mg/5 mL 30 ml PO DAILY PRN Constipation 07/12/24 07/12/24 oral suspension metoprolol tartrate 25 mg tablet 25 mg PO BEDTIME PRN HTN 07/12/24 07/12/24 sennosides 8.6 mg-docusate sodium 1 tab-cap PO BID 07/12/24 07/12/24 50 mg tablet (Senna with Docusate Sodium) sodium phosphates 19 gram-7 118 ml MN DAILY PRN Constipation 07/12/24 07/12/24 gram/118 mL enema (Fleet Enema) vit C 250 mg-vit E 90 mg-zinc 40 1 tab PO DAILY 07/12/24 07/12/24 mg-copper 1 [id number] capsule (PreserVision AREDS-2) Previous Rx's ?Medication ?Instructions ?Recorded flash glucose sensor (FreeStyle #1 ea 05/23/23 Madeline 14 Day Sensor kit) flash glucose sensor (FreeStyle #6 ea 05/23/23 Madeline 14 Day Sensor kit) pen needle, diabetic 32 gauge x #400 ea 09/17/23 (BD Eveline 2nd Gen Pen Needle) amiodarone 200 mg tablet 200 mg PO DAILY 90 days #90 tabs 10/29/23 lactulose 10 gram/15 mL oral 30 ml PO DAILY PRN for 02/01/24 solution constipation #946 mL simvastatin 10 mg tablet 10 mg PO BEDTIME #90 tabs 06/16/24 cefuroxime axetil 250 mg tablet 500 mg (2 x 250 mg) PO BID #10 tabs 07/14/24 doxycycline monohydrate 100 mg 100 mg PO Q12H #10 caps 07/14/24 capsule furosemide 40 mg tablet 40 mg PO DAILY #90 tabs 07/14/24 insulin glargine U-300 conc 300 10 unit (0.0333 mL) subcut DAILY 07/14/24 unit/mL (1.5 mL) subcutaneous pen #4.5 mL (Touty SoloStar U-300 Insulin) quetiapine 25 mg tablet 25 mg PO BID PRN 07/14/24 Anxiety/Restlessness #60 tabs metoprolol succinate 100 mg 100 mg PO DAILY 90 days #90 tabs 07/22/24 tablet,extended release 24 hr furosemide 20 mg tablet See Rx Instructions .Route 07/26/24 .COMPLEX #5 tabs Allergies Allergy/AdvReac Type Severity Reaction Status Date / Time codeine Allergy Intermediate TACHYCARDIA Verified 07/26/24 21:09 nitrofurantoin [Macrobid] Allergy Unknown confusion Verified 07/26/24 21:09 pravastatin Allergy Unknown Unknown Verified 07/26/24 21:09 rosuvastatin [Crestor] Allergy Unknown Unknown Verified 07/26/24 21:09 Sulfa (Sulfonamide Allergy Unknown unknown Verified 07/26/24 21:09 Antibiotics) sulfamethoxazole Allergy Unknown Unknown Verified 07/26/24 21:09 [From Bactrim] trimethoprim [From Bactrim] Allergy Unknown Unknown Verified 07/26/24 21:09 amlodipine AdvReac Intermediate leg Verified 07/26/24 21:09 swelling digoxin AdvReac Intermediate Confusion Verified 07/26/24 21:09 Review of Systems 2 Review of Systems: Yes Unobtainable due to mental status [facility] Past Medical History Medical History Hypothyroidism Constipation Transaminitis Congestive heart failure Ulcer of right ankle Recurrent UTI Urinary tract infection with fever Persistent atrial fibrillation Left thigh pain Abdominal mass, LUQ (left upper quadrant) Iliotibial band syndrome of left side UTI (urinary tract infection) Herpes zoster Orthostatic hypotension Acute hyponatremia Weakness COVID-19 Breast asymmetry Atrial fibrillation with rapid ventricular response Hyperkalemia Essential hypertension Atherosclerotic cardiovascular disease Chronic heart failure with preserved ejection fraction (HFpEF) Iliotibial band syndrome of right side Disc degeneration, lumbar Cognitive dysfunction 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 Atrial fibrillation Osteopenia Hypothyroid Spinal stenosis of lumbar region Degenerative disc disease, lumbar Type 2 diabetes mellitus with hyperglycemia Surgical History History of removal of cyst History of appendectomy History of eye surgery History of cataract surgery History of cholecystectomy History of section History of knee replacement History of hip replacement Family History Family History Father CVD (cardiovascular disease) Mother CVD (cardiovascular disease) Stroke Social History Social History Household Members: Unknown / Unable to assess Household Members Other:: son comes 3 days a week, daughter lives 5 minutes away visits frequently Housing: Alf Alcohol intake: never 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 Patient Tobacco Use Status: Former Tobacco user Tobacco use type: Cigarette Years Smoked: <1 Smoked in Last 30 Days: No e-Cigarette/Vaping Use: Former Use Second Hand Smoke Exposure: No Use of substances other than those prescribed or required for medical reasons: No Advance Directives: Yes Advance Directives on File: Yes Advance Directives Date on File: 08/29/21 Do you have a plan to hurt others: No Plan service: No Current occupational status: retired Cognitive needs: Yes (Walker) Hearing needs: No Vision needs: Yes Physical Exam 2 Vital Signs: Vital Signs: Last Vital Signs Temp 98.0 F 07/26/24 21:46 Pulse 73 07/26/24 22:53 Resp 18 07/26/24 22:53 BP 171/64 H 07/26/24 22:53 Pulse Ox 94 07/26/24 22:53 O2 Del Method Room Air 07/26/24 22:53 BMI result Body Mass Index 27.7 Appearance: Alert. Oriented X1-2. No acute distress. Eyes: PERRLA, No Nystagmus ENT: Pharynx normal. Oral Mucosa moist Neck: Normal inspection. Neck supple. No midline tenderness CVS: Irregularly irregular heart rate, Pulses normal. Respiratory: No respiratory distress. Equal air entry bilateral, no wheezing occasional crackles at the base Abdomen: Soft and nontender. Bowel sounds are present, no mass palpable, no CVA tenderness Skin: Skin warm and dry. Normal skin color. Normal skin turgor. Extremities: No lower extremity edema. No calf tenderness Neuro: Oriented X 1-2. No motor deficit. No sensory deficit.No cerebellar signs , cranial nerves II-XII intact Medical Decision Making Medical Decision Making [facility] Narrative: Patient is status post mechanical fall CT scan of the head and C-spine negative for acute also noted to have chronic congestive heart failure according to daughter patient has been more congested for last 24 hours will increase the dose of furosemide from 40 mg daily to 40 in the morning and 20 in the afternoon for 5 days advised to follow with quill cleaning machine operator patient is saturating 94% at room air Differential Diagnosis Differential Diagnoses: The differential diagnosis associated with the presentation includes Lab Data [facility] Lab Attestation statement: I reviewed the patient's lab results. 07/26/24 21:27 07/26/24 21:27 Labs: Lab Results 07/26/24 Range/Units 21:27 WBC 8.5 (4.8-10.8) X10*3/uL RBC 3.26 L (4.20-5.50) X10*6/uL Hgb 10.4 L (12.0-16.0) g/dl Hct 31.7 L (37.0-47.0) % MCV 97.2 (80.0-98.0) fL MCH 31.9 (27.0-33.0) pg MCHC 32.8 (31.0-35.0) g/dl RDW 16.8 H (11.0-16.0) % Plt Count 286 (160-400) X10*3/uL MPV 9.9 (9.4-12.3) fL Immature Gran % (Auto) 0.4 (0.0-0.4) % Neut % (Auto) 69.7 (45-73) % Lymph % (Auto) 11.7 L (20-40) % [place] % (Auto) 11.9 H (2-11) % Eos % (Auto) 5.1 H (0-4) % Baso % (Auto) 1.2 (0-2) % Lymph # (Auto) 1.0 L (1.2-4.9) X10*3/uL [place] # (Auto) 1.0 (0.1-1.2) X10*3/uL Eos # (Auto) 0.4 (0.0-0.4) X10*3/uL Baso # (Auto) 0.1 (0.0-0.2) X10*3/uL Abs Immat Gran (auto) 0.03 (0.00-0.03) X10*3/uL Absolute Neuts (auto) 5.9 (2.0-8.3) x10*3/uL Absolute Nucleated RBC 0.000 (0.0-0.012) X10*3/uL Nucleated RBC % (auto) 0.0 (0.0-0.2) /100WBC Sodium 138 (135-145) mmol/L Potassium 3.9 (3.3-5.1) mmol/L Chloride 101 (96-108) mmol/L Carbon Dioxide 29 (22-29) mmol/L Anion Gap 12 (12-20) BUN 27 H (9-16) mg/dL Creatinine 1.21 (0.5-1.4) mg/dL Estim Creat Clear Calc 30.9 Estimated GFR 42 Random Glucose 255 H (60-115) mg/dL Calcium 8.7 (8.4-10.2) mg/dL Total Bilirubin 0.3 (0.0-1.0) mg/dL AST 29 (5-31) U/L ALT 31 (0-31) U/L Alkaline Phosphatase 143 H (39-117) U/L B-Natriuretic Peptide 326 H (<100) pg/mL Total Protein 6.3 L (6.5-8.0) g/dL Albumin 3.5 (3.5-5.0) g/dL Independent Interpretation I performed an independent interpretation of an: EKG, Plain X-Ray and CT Scan Interpretation: Atrial fibrillation with ventricular rate of 72 beats per minute left axis deviation LVH no acute STT wave changes no acute ischemia Radiology Impression Discussion of test interpretation with radiology: I have reviewed the radiologist's reading. Radiologist Impression: [address] [address] XRay Report Signed Patient: Gerri Sanchez MR#: [id number] : 1935 Acct:[id number] Age/Sex: 88 / F ADM Date: 07/26/24 Loc: .ED Attending Dr: Ordering Physician: Alexis Ellison MD Date of Service: 07/26/24 Procedure(s): XR chest 1V Accession Number(s): [id number] cc: MIRZA HAWK MD; Alexis Ellison MD~ CLINICAL HISTORY: cough 1 view chest x-ray Comparison: Chest x-ray from 07/11/2024 Findings: No significant change in small bilateral pleural effusions, right worse than left. Interstitial opacities are nonspecific but may reflect pneumonitis, recurrent pulmonary edema, and mild residual edema. No pneumothorax. Cardiomegaly redemonstrated. Degenerative changes again noted of the imaged shoulders and imaged AC joints. IMPRESSION: 1. Small pleural effusions, right worse than left. 2. Mild interstitial opacities are nonspecific and may reflect mild recurrent pulmonary edema. This document has been electronically signed by: Michael Mares MD on 07/26/2024 22:59:18 Discharge Plan Discharge Clinical Impression: Fall, Chronic heart failure with preserved ejection fraction (HFpEF) Patient Disposition: Xfer [facility] Transfer Details: CT scan of the head and C-spine negative for acute, patient has chronic CHF will increase the dose of furosemide. give extra dose of furosemide 20 mg in afternoon only for 5 days Instructions: Heart Failure (DC), Fall Prevention for Older Adults (ED) Prescriptions: New furosemide 20 mg tablet See Rx Instructions .ROUTE .COMPLEX Qty: 5 0RF Rx Instructions: 20 mg orally daily at 2 pm for 5 days only No Action cholecalciferol (vitamin D3) 25 mcg (1,000 unit) capsule 25 mcg PO DAILY (DME) FreeStyle Madeline 14 Day Sensor Kit See Rx Instructions .ROUTE .MEDSUPPLY Qty: 1 6RF Rx Instructions: Dx: E11.65 As directed, 14 days (DME) FreeStyle Madeline 14 Day Sensor Kit See Rx Instructions .Route Qty: 6 3RF Rx Instructions: As directed amiodarone 200 mg tablet 200 mg PO DAILY 90 Days Qty: 90 2RF lactulose 10 gram/15 mL solution 30 ml PO DAILY PRN (Reason: for constipation) Qty: 946 0RF simvastatin 10 mg tablet 10 mg PO BEDTIME Qty: 90 0RF metoprolol succinate 100 mg tablet extended release 24 hr 100 mg PO DAILY 90 Days Qty: 90 0RF travoprost 0.004 % drops 1 drp ophthalmic (eye) BEDTIME acetaminophen 500 mg Tablet 1,000 mg PO TID PRN (Reason: Pain) insulin lispro [Humalog KwikPen Insulin] 100 unit/mL insulin pen 1 sliding scale dose subcut TIDAC Protocol: Insulin Correction Scale Less than or equal to 110 ---- Give (units): 0 111 to 150 Give (units): 0 151 to 200 Give (units): 2 201 to 250 Give (units): 4 251 to 300 Give (units): 6 301 to 350 Give (units): 8 Greater than 350 Give (units): 10 Call MD if Blood Glucose > : 350 sennosides-docusate sodium [Senna with Docusate Sodium] 8.6-50 mg Tablet 1 tab-cap PO BID levothyroxine 150 mcg Tablet 150 mcg PO DAILY@0600 furosemide 20 mg Tablet 20 mg PO DAILY PRN (Reason: 3lb+ weight gain) PreserVision AREDS-2 250-90-40-1 mg Capsule 1 tab PO DAILY magnesium hydroxide 400 mg/5 mL Suspension 30 ml PO DAILY PRN (Reason: Constipation) bisacodyl 10 mg Suppository 10 mg MN DAILY PRN (Reason: Constipation) Fleet Enema 19-7 gram/118 mL Enema 118 ml MN DAILY PRN (Reason: Constipation) metoprolol tartrate 25 mg Tablet 25 mg PO BEDTIME PRN (Reason: HTN) doxycycline monohydrate 100 mg Capsule 100 mg PO Q12H Qty: 10 0RF cefuroxime axetil 250 mg tablet 500 mg PO BID Qty: 10 0RF quetiapine 25 mg Tablet 25 mg PO BID PRN (Reason: Anxiety/Restlessness) Qty: 60 0RF furosemide 40 mg tablet 40 mg PO DAILY Qty: 90 0RF insulin glargine U-300 conc [Toujeo SoloStar U-300 Insulin] 300 unit/mL (1.5 mL) insulin pen 10 unit subcut DAILY Qty: 4.5 0RF Rx Instructions: or as directed calcitriol 0.25 mcg capsule 0.25 mcg PO Q48H Xarelto 15 mg tablet 15 mg PO DAILY@1700 (DME) pen needle, diabetic [BD Eveline 2nd Gen Pen Needle] 32 gauge x 5/32 needle See Rx Instructions .ROUTE .COMPLEX Qty: 400 3RF Dose Instruction: USEN TO INJECT INSULIN FOUR TIMES DAILY Rx Instructions: USEN TO INJECT INSULIN FOUR TIMES DAILY gabapentin 300 mg capsule 100 mg PO BID melatonin 5 mg capsule 5 mg PO BEDTIME PRN (Reason: insomnia) Print Language: Montserratian
--- NOTE | 2024-07-26 21:03 | ECG_ITS ---
Test Reason : AFIB Blood Pressure : */* mmHG Vent. Rate : 72 BPM Atrial Rate : * BPM P-R Int : * ms QRS Dur : 106 ms QT Int : 430 ms P-R-T Axes : * -58 45 degrees QTcB Int : 470 ms Atrial fibrillation Left axis deviation Minimal voltage criteria for LVH, may be normal variant ( Riley product ) Anterior infarct (cited on or before 11-Jul-2024) Abnormal ECG When compared with ECG of 11-Jul-2024 15:08, No significant change was found Referred By: Alexis Ellison Electronically Signed By: MATTEO CARNEY MD
[2024-07-26 21:08] VITALS: BP 142/86; BP 151/77; PULSE 84; PULSE 92; RESP 18; TEMP 36.7; O2SAT 94; O2SAT 97; BMI 27.7
[2024-07-26 21:36] LABS: MANUAL DIFF FLAG NO
[2024-07-26 21:38] LABS: Basophils Absolute Auto 0.1 X10*3/uL (0.0-0.2); Basophils Percent Auto 1.2 % (0-2); Eosinophils Absolute Auto 0.4 X10*3/uL (0.0-0.4); Eosinophils Percent Auto 5.1 % (0-4); Hematocrit 31.7 % (37.0-47.0); Hemoglobin 10.4 g/dl (12.0-16.0); Imm Gran Abs Auto 0.03 X10*3/uL (0.00-0.03); Imm Gran Pct Auto 0.4 % (0.0-0.4); Lymphocytes Percent Auto 11.7 % (20-40); Mean Corpuscular HGB Conc 32.8 g/dl (31.0-35.0); Mean Corpuscular Hemoglobin 31.9 pg (27.0-33.0); Mean Corpuscular Volume 97.2 fL (80.0-98.0); Mean Platelet Volume 9.9 fL (9.4-12.3); Monocytes Percent Auto 11.9 % (2-11); Neutrophils Absolute Auto 5.9 x10*3/uL (2.0-8.3); Neutrophils Percent Auto 69.7 % (45-73); Platelet Count 286 X10*3/uL (160-400); Red Blood Count 3.26 X10*6/uL (4.20-5.50); Red Cell Distribution Width 16.8 % (11.0-16.0); White Blood Count 8.5 X10*3/uL (4.8-10.8)
[2024-07-26 21:46] VITALS: BP 151/77; PULSE 84; RESP 18; TEMP 36.7; O2SAT 94
--- OUTSIDE RECORDS SUMMARY | 2024-07-26 21:47 | XMS_ITS | Encounter Summary ---
Author Organization [facility] Address [id number] [place] [id number] Care Team Providers Care Environmental Projects Advisor Name Role Phone Torrey Kwok MD Primary Care Provider [phone] Encounter Details Date Type Department Care Team (Late st Contact Info) Description 04/30/[address] [facility] - Main Lab [address] [facility] [place] [address] Torrey Kwok MD [address] [place], [place] [id number] Type 2 diabetes mellitus without complications (CMS/HCC V24, CMS/HCC V28) Social History Tobacco Use Types Packs/Day Years [...] EST Type 2 diabetes mellitus without complications (CMS/[facility]) documented in this encounter Results * (ABNORMAL) Complete blood count (04/30/2024 6:31 AM EST) WBC 6.6 4.8 - 10.8 K/[facility] LAB HEMETOLOGY METHOD 04/30/2024 2:51 PM EST [facility] LAB RBC 3.40(L) 3.80 - 4.80 M/[facility] LAB HEMETOLOGY METHOD 04/30/2024 2:51 PM EST [facility] LAB Hemoglobin 10.7(L) 11.5 - 16.0 g/dL LAB HEMETOLOGY METHOD 04/30/2024 2:51 PM [facility] LAB Hematocrit 34.7(L) 35.0 - 47.0 % LAB HEMETOLOGY METHOD 04/30/2024 2:51 PM [facility] LAB MCV 101.5(H) 79.0 - 98.0 FL LAB HEMETOLOGY METHOD 04/30/2024 2:51 PM [facility] LAB MCH 31.3 27.0 - [...] LAB BLOOD ORDERABLES Final Resul t [facility] LAB [address] [place] [address], documented in this encounter Visit Diagnoses Diagnosis Type 2 diabetes mellitus without complications (CMS/[facility] V24, CMS/[facility] V28) documented in this encounter Additional Health Concerns Infection Onset Date Last Indicated Resolved Time Respiratory Rule-Out 07/12/2024 07/11/2024 025 11:25 AM EDT documented as of this encounter Care Teams Environmental Projects Advisor Relationship Specialty Start Date End Date Torrey Kwok MD [address] [place] [address] [address] [place] [address] PCP - General Geriatric Medicine 04/25/24 documented as of this encounter
--- OUTSIDE RECORDS SUMMARY | 2024-07-26 21:47 | XMS_ITS | Encounter Summary ---
Author Organization [facility] Address [address] [place] [phone] Care Team Providers Care Mercury Cell Cleaner Name Role Phone Torrey Kwok MD Primary Care Provider [phone] Encounter Details Date Type Department Care Team (Late st Contact Info) Description 06/14/2024 Lab Requisition [facility] - Main Lab [address] [facility] [place] [address] Torrey Kwok MD [address] [place], [place] [id number] 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, CMS/HCC V28); Essential (primary) hypertension; Heart failure, unspecified (CMS/HCC V24, CMS/HCC V28); 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 V24, CMS/HCC V28) Social History Tobacco [...] (CMS/HCC) Essential (primary) hypertension Heart failure, unspecified ([facility]) 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 ([facility]) documented in this encounter Results * (ABNORMAL) Basic metabolic panel (06/16/2024 5:17 AM EDT) Sodium 139 133 - 145 mmol/L LAB CHEMISTRY METHOD 06/16/2024 11:54 AM [facility] LAB Potassium 4.2 3.5 - 5.5 mmol/L LAB CHEMISTRY METHOD 06/16/2024 11:54 AM [facility] LAB Chloride 103 96 - 110 mmol/L LAB CHEMISTRY METHOD 06/16/2024 11:54 AM [facility] LAB CO2 26 21 - 32 mmol/L LAB CHEMISTRY METHOD 06/16/2024 11:54 AM [facility] LAB Anion Gap 10 3 - 11 LAB CHEMISTRY METHOD 06/16/2024 11:54 AM [facility] LAB Glucose 319(H) 70 - 100 mg/dL LAB CHEMISTRY METHOD 06/16/2024 11:54 AM [facility] LAB BUN 26(H) 5 - 25 mg/dL LAB CHEMISTRY METHOD 06/16/2024 11:54 AM [facility] LAB Creatinine 0.97 0.50 - 1.10 mg/dL LAB CHEMISTRY METHOD 06/16/2024 11:54 AM [facility] LAB eGFR 57(L) >=60 mL/min/1. 73m2 LAB CHEMISTRY METHOD 06/16/2024 11:54 AM [facility] LAB Comment:Calculation based on the??Chronic Kidney Disease Epidemiology Collaboration (CKD-EPI) equation refit??without adjustment for race. BUN/Creatinine Ratio 26.8 LAB CHEMISTRY METHOD 06/16/2024 11:54 AM [facility] LAB Calcium 8.8 8.5 - 10.5 mg/dL LAB CHEMISTRY METHOD 06/16[facility]24 11:[facility] Blood Venous blood specimen / Unknown Venipuncture / Unknown 06/16/2024 5:17 AM EDT 06/16/2024 10:33 AM EDT Torrey Kwok MD LAB BLOOD ORDERABLES Final Resul t [facility] [address] [place] [address], * (ABNORMAL) Complete blood count (06/16/2024 5:17 AM EDT) WBC 6.8 4.8 - 10.8 K/mcL LAB HEMETOLOGY METHOD 06/16/2024 11:13 AM [facility] LAB RBC 3.40(L) 3.80 - 4.80 M/mcL LAB HEMETOLOGY METHOD 06/16/2024 11:13 AM [facility] LAB Hemoglobin 10.9(L) 11.5 - 16.0 g/dL LAB HEMETOLOGY METHOD 06/16/2024 11:13 AM [facility] LAB Hematocrit 34.2(L) 35.0 - 47.0 % LAB HEMETOLOGY METHOD 06/16/2024 11:13 AM [facility] LAB MCV 101.2(H) 79.0 - 98.0 FL LAB HEMETOLOGY METHOD 06/16/2024 11:13 AM [facility] LAB MCH 32.2(H) 27.0 - 32.0 pcg LAB HEMETOLOGY METHOD 06/16/2024 11:13 AM [facility] LAB MCHC 31.9(L) 32.0 - 37.0 g/dL LAB HEMETOLOGY METHOD 06/16/2024 11:13 AM [facility] LAB RDW 18.4(H) 11.0 - 15.0 % LAB HEMETOLOGY METHOD 06/16/2024 11:[address] [facility] Platelets 326 130 - 400 K/mcL LAB HEMETOLOGY METHOD 06/16/2024 11:[address] [facility] MPV 10.5 7.0 - 11.0 FL LAB HEMETOLOGY METHOD 06/16/2024 11:[address] [facility] NRBC 0.0 <1.0 % LAB HEMETOLOGY METHOD 06/16/2024 11:[address] [facility] NRBC Absolute 0.00 <0.10 K/mcL LAB HEMETOLOGY METHOD 06/16/2024 11:[address] [facility] Blood Venous blood specimen / Unknown Venipuncture / Unknown 06/16/2024 5:17 AM EDT 06/16/2024 10:36 AM EDT Torrey Kwok MD LAB BLOOD ORDERABLES Final Resul t [facility] [address] [place] [address], documented in this encounter Visit Diagnoses Diagnosis 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, CMS/HCC V28) Essential (primary) hypertension Unspecified essential hypertension Heart failure, unspecified ([facility]/HCC V24, [facility]/HCC V28) Heart failure, unspecified 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 [address] [place] [address] PCP - General Geriatric Medicine 04/25/24 documented as of this encounter
--- OUTSIDE RECORDS SUMMARY | 2024-07-26 21:47 | XMS_ITS | Encounter Summary ---
Author Organization [facility] Address [address] [place] [address] Phone Care Team Providers Care Casino Cage Cashier Name Role Phone Monique White MD Primary Care Provider [phone] Encounter Details Date Type Department Care Team (Late st Contact Info) Description 06/07/2021 Telephone [facility] [address] [place] [address] Sohail Penaloza MD Social History [...] with you. Please call her back at [phone] Thank you documented in this encounter Plan of Treatment Upcoming Encounters Date Type Department Care Team (Late st Contact Info) Description 08/14/2024 2:30 PM EDT Office Visit [facility] [address] [place] [address] Tu Oliva MD [address] [facility] [address] [place] [address] documented as of this encounter Visit Diagnoses Not on filedocumented in this encounter Care Teams Casino Cage Cashier Relationship Specialty Start Date End Date Monique White MD [facility] [address] [place] PCP - General Internal Medicine 03/11/21 documented as of this encounter
--- OUTSIDE RECORDS SUMMARY | 2024-07-26 21:48 | XMS_ITS | Encounter Summary ---
Author Organization [facility] Address [address] [place] [id number] Care Team Providers Care Segment Producer Name Role Phone Torrey Kwok MD Primary Care Provider [phone] Encounter Details Date Type Department Care Team (Late st Contact Info) Description 06/07/[address] [facility] - [facility] Lab [address] [facility] [place] [address] Torrey Kwok MD [address] [place], [place] [id number] Type 2 diabetes mellitus with diabetic chronic [...] with unspecified diabetic retinopathy with macular edema ([facility]) documented in this encounter Results * (ABNORMAL) Basic metabolic panel (06/09/2024 6:45 AM EST) Sodium 137 133 - 145 mmol/L LAB CHEMISTRY METHOD 06/09/2024 1:[address] [facility] Potassium 3.8 3.5 - 5.5 mmol/L LAB CHEMISTRY METHOD 06/09/2024 1:[address] [facility] Chloride 99 96 - 110 mmol/L LAB CHEMISTRY METHOD 06/09/2024 1:[address] [facility] CO2 28 21 - 32 mmol/L LAB CHEMISTRY METHOD 06/09/2024 1:[address] [facility] Anion Gap 10 3 - 11 LAB CHEMISTRY METHOD 06/09/2024 1:[address] [facility] Glucose 135(H) 70 - 100 mg/dL LAB CHEMISTRY METHOD 06/09/2024 1:[address] [facility] BUN 41(H) 5 - 25 mg/dL LAB CHEMISTRY METHOD 06/09/2024 1:[address] [facility] Creatinine 0.99 0.50 - 1.10 mg/dL LAB CHEMISTRY METHOD 06/09/2024 1:[address] [facility] eGFR 55(L) >=60 mL/min/1. 73m2 LAB CHEMISTRY METHOD 06/09/2024 1:[address] [facility] Comment:Calculation based on the??Chronic Kidney Disease Epidemiology Collaboration (CKD-EPI) equation refit??without adjustment for race. BUN/Creatinine Ratio 41.4 LAB CHEMISTRY METHOD 06/09/2024 1:[address] [facility] Calcium 9.2 8.5 - 10.5 mg/dL LAB CHEMISTRY METHOD 06/09/2024 1:[address] [facility] Blood Venous blood specimen / Unknown Venipuncture / Unknown 06/09/2024 6:45 AM EST 06/09/2024 11:22 AM EST Torrey Kwok MD LAB BLOOD ORDERABLES Final Resul t [facility] [address] [place] [address], * (ABNORMAL) Complete blood count (06/09/2024 6:45 AM EST) [facility] WBC 9.1 4.8 - 10.8 K/mcL LAB HEMETOLOGY METHOD 06/09/2024 1:[address] [facility] RBC 3.50(L) 3.80 - 4.80 M/mcL LAB HEMETOLOGY METHOD 06/09/2024 1:[address] [facility] Hemoglobin 11.2(L) 11.5 - 16.0 g/dL LAB HEMETOLOGY METHOD 06/09/2024 1:[address] [facility] Hematocrit 35.6 35.0 - 47.0 % LAB HEMETOLOGY METHOD 06/09/2024 1:[address] [facility] MCV 101.1(H) 79.0 - 98.0 FL LAB HEMETOLOGY METHOD 06/09/2024 1:[address] [facility] MCH 31.8 27.0 - 32.0 pcg LAB HEMETOLOGY METHOD 06/09/2024 1:[address] [facility] MCHC 31.5(L) 32.0 - 37.0 g/dL LAB HEMETOLOGY METHOD 06/09/2024 1:[address] [facility] RDW 18.6(H) 11.0 - 15.0 % LAB HEMETOLOGY METHOD 06/09/2024 1:[address] [facility] Platelets 346 130 - 400 K/mcL LAB HEMETOLOGY METHOD 06/09/2024 1:30 PM EST [facility] MPV 10.5 7.0 - [...] Resul t [facility] [address] [place] [address], documented in this encounter Visit Diagnoses Diagnosis 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, CMS/HCC V28) Essential (primary) hypertension Unspecified essential hypertension Heart failure, unspecified (CMS/HCC V24, CMS/HCC V28) Heart failure, unspecified 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
--- OUTSIDE RECORDS SUMMARY | 2024-07-26 21:48 | XMS_ITS | Clinical Summary ---
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 Name Role Phone Torrey Kwok MD Primary Care Provider [phone] Encounters Date Type Department Care Team Description 07/26/2024 Lab Requisition [facility] [address] [place] [address] Torrey Kwok MD Type 2 diabetes mellitus with diabetic chronic kidney disease ([facility] V24, [facility] V28); Essential (primary) hypertension; Heart failure, unspecified ([facility] V24[facility] V28); 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 ([facility] V24, [facility] V28) 07/18/2024 Lab Requisition [facility] Lab [address] [place] [address] Torrey Kwok MD Type 2 diabetes mellitus with diabetic chronic kidney disease ([facility] V24, [facility] V28); Essential (primary) hypertension; Heart failure, unspecified ([facility] V24[facility] V28); 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 ([facility] V24, [facility] V28) 07/12/2024 Lab Requisition [facility] Lab [address] [place] [address] Torrey Kwok MD Acute cough 07/11/2024 Lab Requisition [facility] Lab [address] [place] [address] Torrey Kwok MD Type 2 diabetes mellitus with diabetic chronic kidney disease ([facility] V24, [facility] V28); Essential (primary) hypertension; Heart failure, unspecified ([facility]/HCC V24, [facility]/HCC V28) 07/11/2024 Lab Requisition [facility] Lab [address] [place] [phone] Torrey Kwok MD Chronic kidney disease, stage 3 unspecified ([facility]/HCC V24, [facility]/HCC V28) 07/05/2024 Lab Requisition [facility] [address] [place] [phone] Torrey Kwok MD Type 2 diabetes mellitus with diabetic chronic kidney disease ([facility] V24, [facility] V28); Essential (primary) hypertension; Heart failure, unspecified ([facility] V24[facility] V28); 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 ([facility] V24, [facility] V28) 07/03/2024 Lab Requisition [facility] [address] [place] [phone] Torrey Kwok MD Chronic kidney disease, stage 3 unspecified ([facility]/HCC V24, [facility]/HCC V28); Type 2 diabetes mellitus with hyperglycemia ([facility] V24, [facility] V28) 06/28/2024 Lab Requisition [facility] Lab [address] [place] [phone] Torrey Kwok MD Type 2 diabetes mellitus with diabetic chronic kidney disease ([facility] V24, [facility] V28); Essential (primary) hypertension; Heart failure, unspecified ([facility] V24, [facility] V28); 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 ([facility]/HCC V24, [facility]/HCC V28) 06/21/2024 Lab Requisition [facility] [address] [place] [address] Torrey Kwok MD Type 2 diabetes mellitus with diabetic chronic kidney disease ([facility] V24, [facility] V28); Essential (primary) hypertension; Heart failure, unspecified ([facility] V24, [facility] V28) 06/20/2024 Lab Requisition [facility] [address] [place] [address] Torrey Kwok MD Essential (primary) hypertension; Type 2 diabetes mellitus without complications ([facility] V24, [facility] V28) 06/14/2024 Lab Requisition [facility] [address] [place] [address] Torrey Kwok MD Type 2 diabetes mellitus with diabetic chronic kidney disease ([facility] V24, [facility] V28); Essential (primary) hypertension; Heart failure, unspecified ([facility] V24, [facility] V28); 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 ([facility] V24, [facility] V28) 06/07/2024 Lab Requisition [facility] Lab [address] [place] [address] Torrey Kwok MD Type 2 diabetes mellitus with diabetic chronic kidney disease ([facility] V24, [facility] V28); Essential (primary) hypertension; Heart failure, unspecified ([facility] V24, [facility] V28); 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 ([facility] V24, [facility] V28) 06/07/2024 Lab Requisition [facility] [address] [place] [address] Torrey Kwok MD Heart failure, unspecified ([facility] V24, [facility] V28); Type 2 diabetes mellitus with diabetic chronic kidney disease ([facility] V24, [facility] V28); Chronic kidney disease, stage 3 unspecified ([facility] V24, [facility] V28); Vitamin D deficiency, unspecified; Essential (primary) hypertension 06/02/2024 Lab Requisition [facility] Lab [address] [place] [address] Torrey Kwok MD Chronic diastolic (congestive) heart failure ([facility] V24, [facility] V28); Chronic kidney disease, stage 3 unspecified ([facility] V24, [facility] V28) 05/31/2024 Lab Requisition [facility] [address] [place] [phone] Torrey Kwok MD Type 2 diabetes mellitus with diabetic chronic kidney disease ([facility] V24, [facility] V28); Essential (primary) hypertension; Heart failure, unspecified ([facility] V24, [facility] V28); 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 without macular edema ([facility] V24, [facility] V28) 05/30/2024 Lab Requisition [facility] [address] [place] [phone] Torrey Kwok MD Essential (primary) hypertension; Type 2 diabetes mellitus without complications ([facility] V24, [facility] V28) 05/24/2024 Lab Requisition [facility] [address] [place] [address] Torrey Kwok MD Type 2 diabetes mellitus with diabetic chronic kidney disease ([facility] V24, [facility] V28); Essential (primary) hypertension; Heart failure, unspecified ([facility] V24, [facility] V28); 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 ([facility] V24, [facility] V28) 05/16/2024 Lab Requisition [facility] [address] [place] [address] Torrey Kwok MD Heart failure, unspecified ([facility] V24, [facility] V28); Essential (primary) hypertension; Type 2 diabetes mellitus with diabetic chronic kidney disease ([facility] V24, [facility] V28) 05/09/2024 Lab Requisition [facility] [address] [place] [address] Torrey Kwok MD 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 ([facility] V24, [facility] V28); Heart failure, unspecified ([facility] V24, [facility] V28); Essential (primary) hypertension; Type 2 diabetes mellitus with diabetic chronic kidney disease ([facility] V24, [facility] V28) 05/09/2024 Lab Requisition [facility] Lab [address] [place] [phone] Torrey Kwok MD 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 ([facility] V24, [facility] V28); Heart failure, unspecified ([facility] V24, [facility] V28); Essential (primary) hypertension; Type 2 diabetes mellitus with diabetic chronic kidney disease ([facility] V24, [facility] V28) 05/06/2024 Lab Requisition [facility] Lab [address] [place] [phone] Torrey Kwok MD Type 2 diabetes mellitus without complications ([facility] V24, [facility] V28) 05/05/2024 Lab Requisition [facility] Lab [address] [place] [phone] Torrey Kwok MD Chronic kidney disease, stage 3 unspecified ([facility] V24, [facility] V28); Type 2 diabetes mellitus with diabetic chronic kidney disease ([facility] V24, [facility] V28) 05/01/2024 Lab Requisition [facility] Lab [address] [place] [phone] Torrey Kwok MD Type 2 diabetes mellitus without complications ([facility] V24, [facility] V28) 04/30/2024 Lab Requisition [facility] Lab [address] [place] [phone] Torrey Kwok MD Type 2 diabetes mellitus without complications ([facility] V24, [facility] V28) 04/29/2024 Lab Requisition [facility] Lab [address] [facility] [place] [address] Torrey Kwok MD Dysuria from Last 3 Months Social History Tobacco [...] history exists Hypertension/CHF/CAD Annual BMP Blood Test 07/21/2025 07/21/2024, 07/11/2024, 07/07/2024, Additional history exists HIB Vaccines Aged Out [...] age to complete this topic Meningococcal B Vaccine Aged Out No l onger eligible based on patient's age to complete this topic RSV Immunization Patients Under 20 months Aged Out No longer eligible based on patient's age to complete this topic Varicella Vaccines Aged Out No longer eligible based on patient's age to complete this topic Procedures Procedure Name Priority Date/Time Associated Diagnosis Comments BASIC METABOLIC PANEL Routine 07/21/2024 7:11 AM EDT 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, CMS/HCC V28) Essential (primary) hypertension Heart failure, unspecified (CMS/HCC V24, CMS/HCC V28) 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 V24, CMS/HCC V28) COMPLETE BLOOD COUNT Routine 07/21/2024 7:11 AM EDT 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, CMS/HCC V28) Essential (primary) hypertension Heart failure, unspecified (CMS/HCC V24, CMS/HCC V28) 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 V24, CMS/HCC V28) [id number], RSV, FLU A AND B QUALITATIVE RT-PCR, LOCAL REFERENCE LAB Routine 07/11/2024 1:00 PM EDT Acute cough BASIC METABOLIC PANEL Routine 07/11/2024 6:58 AM [...] URINE Routine 04/28/2024 12:15 PM EST Dysuria HEMOGLOBIN A1C Routine 04/25/2024 5:49 AM EST Vitamin D deficiency, unspecified 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 WBC 7.8 4.8 - 10.8 K/mcL LAB HEMETOLOGY METHOD 07/21/2024 1:34 PM EDT [facility] RBC 3.30(L) 3.80 - 4.80 M/mcL LAB HEMETOLOGY METHOD 07/21/2024 1:34 PM EDT [facility] Hemoglobin 10.6(L) 11.5 - 16.0 g/dL LAB HEMETOLOGY METHOD 07/21/2024 1:34 PM EDT [facility] Hematocrit 33.4(L) 35.0 - 47.0 % LAB HEMETOLOGY METHOD 07/21/2024 1:34 PM EDT [facility] MCV 100.6(H) 79.0 - 98.0 FL LAB HEMETOLOGY METHOD 07/21/2024 1:34 PM EDT [facility] MCH 31.9 27.0 - 32.0 pcg LAB HEMETOLOGY METHOD 07/21/2024 1:34 PM EDT [facility] MCHC 31.7(L) 32.0 - 37.0 g/dL LAB HEMETOLOGY METHOD 07/21/2024 1:34 PM EDT [facility] RDW 17.4(H) 11.0 - 15.0 % LAB HEMETOLOGY METHOD 07/21/2024 1:34 PM EDT [facility] Platelets 283 130 - 400 K/mcL LAB HEMETOLOGY METHOD 07/21/2024 1:34 PM EDT [facility] MPV 10.9 7.0 - 11.0 FL LAB HEMETOLOGY METHOD 07/21/2024 1:34 PM EDT [facility] NRBC 0.0 <1.0 % LAB HEMETOLOGY METHOD 07/21/2024 1:34 PM EDT [facility] NRBC Absolute 0.00 <0.10 K/mcL LAB HEMETOLOGY METHOD 07/21/2024 1:34 PM EDT [facility] Blood Venous blood specimen / Unknown Venipuncture / Unknown 07/21/2024 7:11 AM EDT 07/21/2024 12:26 PM EDT us Torrey Kwok MD LAB BLOOD ORDERABLES Final Resul t [facility] [address] [place] [address], * (ABNORMAL) Basic metabolic panel (07/21/2024 7:11 AM EDT) Only the most recent of17 resultswithin the time period is included. Sodium 139 133 - 145 mmol/L LAB CHEMISTRY METHOD 07/21/2024 1:[address] [facility] Potassium 3.0(L) 3.5 - 5.5 mmol/L LAB CHEMISTRY METHOD 07/21/2024 1:[address] [facility] Chloride 99 96 - 110 mmol/L LAB CHEMISTRY METHOD 07/21/2024 1:[address] [facility] CO2 34(H) 21 - 32 mmol/L LAB CHEMISTRY METHOD 07/21/2024 1:[address] [facility] Anion Gap 6 3 - 11 LAB CHEMISTRY METHOD 07/21/2024 1:[address] [facility] Glucose 46(L) 70 - 100 mg/dL LAB CHEMISTRY METHOD 07/21/2024 1:[address] [facility] BUN 33(H) 5 - 25 mg/dL LAB CHEMISTRY METHOD 07/21/2024 1:[address] [facility] Creatinine 1.06 0.50 - 1.10 mg/dL LAB CHEMISTRY METHOD 07/21/2024 1:[address] [facility] eGFR 51(L) >=60 mL/min/1. 73m2 LAB CHEMISTRY METHOD 07/21/2024 1:[address] [facility] Comment:Calculation based on the??Chronic Kidney Disease Epidemiology Collaboration (CKD-EPI) equation refit??without adjustment for race. BUN/Creatinine Ratio 31.1 LAB CHEMISTRY METHOD 07/21/2024 1:[address] [facility] Calcium 8.5 8.5 - 10.5 mg/dL LAB CHEMISTRY METHOD 07/21/2024 1:[address] [facility] Blood Venous blood specimen / Unknown Venipuncture / Unknown 07/21/2024 7:11 AM EDT 07/21/2024 12:26 PM EDT us Torrey Kwok MD LAB BLOOD ORDERABLES Final Resul t [facility] [address] [place] [address], [place] [phone] * [id number], RSV, Influenza A and B qualitative RT-PCR (07/11/2024 1:00 PM EDT) Pathologist [facility] SARS COV-2 Not Detected Not Detected LAB MOLECULAR DIAGNOSTICS METHOD 07/12/2024 11:25 AM EDT [facility] Comment: Disclaimer: The manner in which this information is used to guide patient care is the responsibility of the healthcare provider. Testing was performed using the Outside[employer] m SARS-CoV-2 test. This test has been authorized by FDA under an Emergency Use Authorization (EUA). This test is only authorized for the duration of time the declaration that circumstances exist justifying the authorization of the emergency use of in vitro diagnostic tests for detection of SARS-CoV-2 virus and/or diagnosis of COVID-19 infection under section 564(b)(1) of the Act, 21 U.S.C. 360bbb- 3(b)(1), unless the authorization is terminated or revoked sooner. Fact sheet for Healthcare Providers can be found at: https://www.fda.gov/media/282358/download Fact sheet for Patients can be found at: https://www.fda.gov/media/280117/download Influenza A PCR Not Detected Not Detected LAB MOLECULAR DIAGNOSTICS METHOD 07/12/2024 11:25 AM EDT [facility] Influenza B PCR Not Detected Not Detected LAB MOLECULAR DIAGNOSTICS METHOD 07/12/2024 11:25 AM EDT [facility] RSV PCR Not Detected Not Detected LAB MOLECULAR DIAGNOSTICS METHOD 07/12/2024 11:25 AM EDT [facility] Swab Nasopharyngeal structure / Unknown Non-blood Collection / Unknown 07/11/2024 1:00 PM EDT 07/12/2024 8:28 AM EDT us Torrey Kwok MD LAB MICROBIOLOGY - GENERAL ORDER GENET Final Result Performing Organization Address [facility] Co de Phone Number [facility] [address] [place] [address], [place] [phone] * Lavender tube (07/04/2024 7:07 AM EDT) [facility] Extra Tube Hold for add-ons. 07/04/2024 12:01 PM EDT [facility] Comment:Auto resulted. Blood Venous blood specimen / Unknown Venipuncture / Unknown 07/04/2024 7:07 AM EDT 07/04/2024 10:40 AM EDT us Torrey Kwok MD LAB BLOOD ORDERABLES Final Resul t Performing Organization Address [facility] Co de Phone Number [facility] [address] [place] [address], [place] [phone] * (ABNORMAL) Thyroid stimulating hormone (06/23/2024 5:47 AM EDT) [facility] TSH 21.48(H) 0.40 - 4.00 mcIU/mL LAB CHEMISTRY METHOD 06/23/2024 1:59 PM EDT [facility] Blood Venous blood specimen / Unknown Venipuncture / Unknown 06/23/2024 5:47 AM EDT 06/23/2024 11:30 AM EDT us Torrey Kwok MD LAB BLOOD ORDERABLES Final Resul t Performing Organization Address [facility]/ZIP Co de Phone Number [facility] [address] [place] [address], [place] [phone] * Vitamin D 25 hydroxy (06/07/2024 6:36 AM EST) Vit D, 25-Hydroxy 41.4 30.0 - 80.0 ng/mL LAB CHEMISTRY METHOD 06/07/2024 1:29 PM EST [facility] Blood Venous blood specimen / Unknown Venipuncture / Unknown 06/07/2024 6:36 AM EST 06/07/2024 9:58 AM EST us Torrey Kwok MD LAB BLOOD ORDERABLES Final Resul t Performing Organization Address City/[facility] Co de Phone Number [facility] [address] [place] [address], [place] [phone] * Folate (06/07/2024 6:36 AM EST) [facility] Folate 9.8 2.8 - 17.0 ng/ml LAB CHEMISTRY METHOD 06/07/2024 12:13 PM EST [facility] Blood Venous blood specimen / Unknown Venipuncture / Unknown 06/07/2024 6:36 AM EST 06/07/2024 9:58 AM EST us Torrey Kwok MD LAB BLOOD ORDERABLES Final Resul t Performing Organization Address [facility] de Phone Number [facility] [address] [place] [address], [place] [phone] * (ABNORMAL) Vitamin B12 (06/07/2024 6:36 AM EST) [facility] Vitamin B-12 1,072(H) 250 - 900 pcg/mL LAB CHEMISTRY METHOD 06/07/2024 12:13 PM EST [facility] Blood Venous blood specimen / Unknown Venipuncture / Unknown 06/07/2024 6:36 AM EST 06/07/2024 9:58 AM EST us Torrey Kwok MD LAB BLOOD ORDERABLES Final Resul t Performing Organization Address City/[facility]/ZIP Co de Phone Number [facility] [address] [place] [address], [place] [phone] * (ABNORMAL) B-type natriuretic peptide (05/26/2024 5:59 AM EST) [facility] BNP 320(H) <=100 pcg/mL LAB CHEMISTRY METHOD 05/26/2024 1:35 PM EST [facility] Blood Venous blood specimen / Unknown Venipuncture / Unknown 05/26/2024 5:59 AM EST 05/26/2024 11:00 AM EST us Torrey Kwok MD LAB BLOOD ORDERABLES Final Resul t [facility] [address] [place] [address], [place] [phone] * (ABNORMAL) Comprehensive metabolic panel (05/26/2024 5:59 AM EST) [facility] Sodium 141 133 - 145 mmol/L LAB [...] Resul t [facility] [address] [place] [address], * (ABNORMAL) Urinalysis with reflex microscopic and culture (04/28/2024 12:15 PM EST) Specific [place] Urine 1.021 1.003 - 1.030 LAB URINALYSIS [...] ORDERABLES Final Resul t Performing Organization Address City/[facility]/ZIP Co de Phone Number [facility] [address] [place] [address], [place] [phone] * Frost urine culture tube (04/28/2024 12:15 PM EST) Extra Tube Hold for add-ons. 04/29/2024 11:01 AM [facility] Comment:Auto resulted. Urine Urine specimen obtained by clean catch procedure / Unknown 04/28/2024 12:15 PM EST 04/29/2024 9:53 AM EST us Torrey Kwok MD LAB URINE ORDERABLES Final Resul t [facility] [address] [place] [address], [place] [phone] * (ABNORMAL) Culture urine (04/28/2024 12:15 PM EST) Culture, Urine >100,000 CFU/mL Escherichia coli(A) ANDRE 05/01/2024 11:04 AM EST [facility] Urine Urine specimen from urinary [...] MICROBIOLOGY - GENERAL ORDER GENET Final Result [facility] [address] [place] [address], * (ABNORMAL) Hemoglobin A1c (04/25/2024 5:49 AM EST) Hemoglobin A1C 8.7(H) <6.5 % LAB CHEMISTRY METHOD 04/25/2024 1:33 PM EST [facility] Mean Bld Glu Estim. 203 mg/dL LAB CHEMISTRY METHOD 04/25/2024 1:33 PM EST [facility] Blood Venous blood specimen / Unknown Venipuncture / Unknown 04/25/2024 5:49 AM EST 04/25/2024 9:21 AM EST us Torrey Kwok MD LAB BLOOD ORDERABLES Final Resul t [facility] [address] [place] [address], [place] [phone] from Last 3 Months or Most Recently Relevant to Health Maintenance Insurance MEDICARE [facility] Care Teams Car Mechanic Helper Relationship Specialty Start Date End Date Torrey Kwok MD [address] [place] [address] PCP - General Geriatric Medicine 04/25/24
--- OUTSIDE RECORDS SUMMARY | 2024-07-26 21:48 | XMS_ITS | Encounter Summary ---
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, CMS/HCC V28); Chronic kidney disease, stage 3 unspecified (CMS/HCC V24, CMS/HCC V28); Vitamin D deficiency, unspecified; Essential (primary) [...] diabetes mellitus with diabetic chronic kidney disease ([facility]/HCC) Chronic kidney disease, stage 3 unspecified (CMS/HCC) Vitamin D deficiency, unspecified Essential (primary) hypertension documented in this encounter Results * Vitamin D 25 hydroxy (06/07/2024 6:36 AM EST) Vit D, 25-Hydroxy 41.4 30.0 - 80.0 ng/mL LAB CHEMISTRY METHOD 06/07/2024 1:29 PM EST [facility] Blood Venous blood specimen / Unknown Venipuncture / Unknown 06/07/2024 6:36 AM EST 06/07/2024 9:58 AM EST us Torrey Kwok MD LAB BLOOD ORDERABLES Final Resul t Performing Organization Address City/[facility]/ZIP Co de Phone Number [facility] [address] [place] [address], [place] [phone] * Folate (06/07/2024 6:36 AM EST) Folate 9.8 2.8 - 17.0 ng/ml LAB CHEMISTRY METHOD 06/07/2024 12:13 PM EST [facility] Blood Venous blood specimen / Unknown Venipuncture / Unknown 06/07/2024 6:36 AM EST 06/07/2024 9:58 AM EST us Torrey Kwok MD LAB BLOOD ORDERABLES Final Resul t [facility] [address] [place] [address], [place] [phone] * (ABNORMAL) Vitamin B12 (06/07/2024 6:36 AM EST) Vitamin B-12 1,072(H) 250 - 900 pcg/mL LAB CHEMISTRY METHOD 06/07/2024 12:13 PM EST [facility] Blood Venous blood specimen / Unknown Venipuncture / Unknown 06/07/2024 6:36 AM EST 06/07/2024 9:58 AM EST Torrey Kwok MD LAB BLOOD ORDERABLES Final Resul t [facility] [address] [place] [address], documented in this encounter Visit Diagnoses Diagnosis Heart failure, unspecified ([facility] V24, [facility] V28) Heart failure, unspecified Type 2 diabetes mellitus with diabetic chronic kidney disease ([facility] V24, [facility] V28) Chronic kidney disease, stage 3 unspecified ([facility] V24, [facility] V28) Vitamin D deficiency, unspecified Essential (primary) hypertension Unspecified essential hypertension documented in this encounter Additional Health Concerns Infection Onset Date Last Indicated Resolved Time Respiratory Rule-Out 07/12/2024 07/11/2024 025 11:25 AM EDT documented as of this encounter Care Teams Music Therapy Teacher Relationship Specialty Start Date End Date Torrey Kwok MD [address] [place] [address] [address] [place] [address] PCP - General Geriatric Medicine 04/25/24 documented as of this encounter
--- OUTSIDE RECORDS SUMMARY | 2024-07-26 21:48 | XMS_ITS | Encounter Summary ---
Author Organization [facility] Address [address] [place] [phone] Care Team Providers Care Paper Box Maker Name Role Phone Torrey Kwok MD Primary Care Provider [phone] Encounter Details Date Type Department Care Team (Late st Contact Info) Description 07/11/2024 Lab Requisition [facility] - Main Lab [address] 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
--- OUTSIDE RECORDS SUMMARY | 2024-07-26 21:48 | XMS_ITS | Encounter Summary ---
Author Organization [facility] Address [address] [place] [phone] Care Team Providers Care Tie Cutter Name Role Phone Torrey Kwok MD Primary Care Provider [phone] Encounter Details Date Type Department Care Team (Late st Contact Info) Description 05/24/2024 Lab Requisition [facility] - Main Lab [address] [facility] [place] [address] Torrey Kwok MD [address] [place], [place] [id number] Type 2 diabetes mellitus with diabetic chronic [...] LAB CHEMISTRY METHOD 05/26/2024 11:56 AM EST [facility] eGFR 46(L) >=60 [...] Resul t [facility] [address] [place] [address], * (ABNORMAL) B-type natriuretic peptide (05/26/2024 5:59 AM EST) BNP 320(H) <=100 pcg/mL LAB CHEMISTRY METHOD 05/26/2024 1:35 PM [facility] Blood Venous blood specimen / Unknown Venipuncture / Unknown 05/26/2024 5:59 AM EST 05/26/2024 11:00 AM EST Torrey Kwok MD LAB BLOOD ORDERABLES Final Resul t [facility] [address] [place] [address], * (ABNORMAL) Basic metabolic panel (05/26/2024 5:59 AM EST) Pathologist [facility] Sodium 141 133 - 145 mmol/L LAB CHEMISTRY METHOD 05/26/2024 11:50 AM [facility] Potassium 3.5 3.5 - 5.5 mmol/L LAB CHEMISTRY METHOD 05/26/2024 11:50 AM [facility] Chloride 101 96 - 110 mmol/L LAB CHEMISTRY METHOD 05/26/2024 11:50 AM [facility] CO2 26 21 - 32 mmol/L LAB CHEMISTRY METHOD 05/26/2024 11:50 AM [facility] Anion Gap 14(H) 3 - 11 LAB CHEMISTRY METHOD 05/26/2024 11:50 AM [facility] Glucose 200(H) 70 - 100 mg/dL LAB CHEMISTRY METHOD 05/26/2024 11:50 AM [facility] BUN 35(H) 5 - 25 mg/dL LAB CHEMISTRY METHOD 05/26/2024 11:50 AM [facility] Creatinine 1.16(H) 0.50 - 1.10 mg/dL LAB CHEMISTRY METHOD 05/26/2024 11:50 AM [facility] eGFR 46(L) >=60 mL/min/1. 73m2 LAB CHEMISTRY METHOD 05/26/2024 11:50 AM EST [facility] Comment:Calculation based on the??Chronic Kidney Disease Epidemiology Collaboration (CKD-EPI) equation refit??without adjustment for race. BUN/Creatinine Ratio 30.2 LAB CHEMISTRY METHOD 05/26/2024 11:50 AM EST [facility] Calcium 8.9 8.5 - 10.5 mg/dL LAB CHEMISTRY METHOD 05/26/2024 11:50 AM [facility] Blood Venous blood specimen / Unknown Venipuncture / Unknown 05/26/2024 5:59 AM EST 05/26/2024 11:00 AM EST Torrey Kwok MD LAB BLOOD ORDERABLES Final Resul t [facility] [address] [place] [address], * (ABNORMAL) Complete blood count (05/26/2024 5:59 AM EST) WBC 10.4 4.8 - 10.8 K/mcL LAB HEMETOLOGY METHOD 05/26/2024 11:12 AM [facility] RBC 3.30(L) 3.80 - 4.80 M/mcL LAB HEMETOLOGY METHOD 05/26/2024 11:12 AM [facility] Hemoglobin 10.7(L) 11.5 - 16.0 g/dL LAB HEMETOLOGY METHOD 05/26/2024 11:12 AM [facility] Hematocrit 34.0(L) 35.0 - 47.0 % LAB HEMETOLOGY METHOD 05/26/2024 11:12 AM [facility] MCV 102.1(H) 79.0 - 98.0 FL LAB HEMETOLOGY METHOD 05/26/2024 11:12 AM [facility] MCH 32.1(H) 27.0 - 32.0 pcg LAB HEMETOLOGY METHOD 05/26/2024 11:12 AM EST [facility] MCHC 31.5(L) 32.0 - 37.0 g/dL LAB HEMETOLOGY METHOD 05/26/2024 11:12 AM [facility] RDW 19.8(H) 11.0 - 15.0 % LAB HEMETOLOGY METHOD 05/26/2024 11:12 AM [facility] Platelets 418(H) 130 - 400 K/mcL LAB HEMETOLOGY METHOD 05/26/2024 11:12 AM [facility] MPV 10.0 7.0 - 11.0 FL LAB HEMETOLOGY METHOD 05/26/2024 11:12 AM [facility] NRBC 0.0 <1.0 % LAB HEMETOLOGY METHOD 05/26/2024 11:12 AM [facility] NRBC Absolute 0.00 <0.10 K/mcL LAB HEMETOLOGY METHOD 05/26/2024 11:12 AM [facility] Blood Venous blood specimen / Unknown Venipuncture / Unknown 05/26/2024 5:59 AM EST 05/26/2024 11:00 AM EST us Torrey Kwok MD LAB BLOOD ORDERABLES Final Resul t [facility] [address] [place] [address], documented in this encounter Visit Diagnoses Diagnosis 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, CMS/HCC V28) Essential (primary) hypertension Unspecified essential hypertension Heart failure, unspecified (CMS/HCC V24, CMS/HCC V28) Heart failure, unspecified 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
--- OUTSIDE RECORDS SUMMARY | 2024-07-26 21:48 | XMS_ITS | Encounter Summary ---
Author Organization [facility] Address [address] [place] [phone] Care Team Providers Care Journal Box Inspector Name Role Phone Torrey Kwok MD Primary Care Provider [phone] Encounter Details Date Type Department Care Team (Late st Contact Info) Description 05/01/2024 Lab Requisition [facility] - Main Lab [address] [facility] [place] [address] Torrey Kwok MD [address] [place] [address] Type 2 diabetes mellitus without complications (CMS/HCC [...] LAB CHEMISTRY METHOD 05/01/2024 9:17 AM EST [facility] Potassium 4.0 3.5 - 5.5 mmol/L LAB CHEMISTRY METHOD 05/01/2024 9:17 AM EST [facility] Chloride 97 96 - 110 mmol/L LAB CHEMISTRY METHOD 05/01/2024 9:17 AM [facility] CO2 29 21 - 32 mmol/L LAB CHEMISTRY METHOD 05/01/2024 9:17 AM [facility] Anion Gap 8 3 - 11 LAB CHEMISTRY METHOD 05/01/2024 9:17 AM [facility] Glucose 262(H) 70 - 100 mg/dL LAB CHEMISTRY METHOD 05/01/2024 9:17 AM [facility] BUN 45(H) 5 - 25 mg/dL LAB CHEMISTRY METHOD 05/01/2024 9:17 AM [facility] Creatinine 1.66(H) 0.50 - 1.10 mg/dL LAB CHEMISTRY METHOD 05/01/2024 9:17 AM [facility] eGFR 30(L) >=60 mL/min/1. 73m2 LAB CHEMISTRY METHOD 05/01/2024 9:17 AM [facility] Comment:Calculation based on the??Chronic Kidney Disease Epidemiology Collaboration (CKD-EPI) equation refit??without adjustment for race. BUN/Creatinine Ratio 27.1 LAB CHEMISTRY METHOD 05/01/2024 9:17 AM [facility] Calcium 7.6(L) 8.5 - 10.5 mg/dL LAB CHEMISTRY METHOD 05/01/2024 9:17 AM [facility] Blood Venous blood specimen / Unknown Venipuncture / Unknown 05/01/2024 7:06 AM EST 05/01/2024 8:25 AM EST us Torrey Kwok MD LAB BLOOD ORDERABLES Final Resul t [facility] [address] [place] [address], documented in this encounter Visit Diagnoses Diagnosis Type 2 diabetes mellitus without complications (CMS/HCC V24, CMS/HCC V28) documented in this encounter Additional Health Concerns Infection Onset Date Last Indicated Resolved Time Respiratory Rule-Out 07/12/2024 07/11/2024 025 11:25 AM EDT documented as of this encounter Care Teams Journal Box Inspector Relationship Specialty Start Date End Date Torrey Kwok MD [address] [place] [address] [address] [place] [address] PCP - General Geriatric Medicine 04/25/24 documented as of this encounter
--- OUTSIDE RECORDS SUMMARY | 2024-07-26 21:48 | XMS_ITS | Encounter Summary ---
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 V24, CMS/HCC V28); Heart failure, unspecified (CMS/HCC V24, CMS/HCC V28); Essential (primary) hypertension; 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, CMS/HCC V28) Social History Tobacco [...] diabetes mellitus with diabetic chronic kidney disease ([facility]/HCC) documented in this encounter Results * (ABNORMAL) Basic metabolic panel (05/12/2024 5:48 AM EST) Sodium 135 133 - 145 mmol/L LAB CHEMISTRY METHOD 05/12/2024 1:22 PM [facility] Potassium 3.5 3.5 - 5.5 mmol/L LAB CHEMISTRY METHOD 05/12/2024 1:22 PM [facility] Chloride 98 96 - 110 mmol/L LAB CHEMISTRY METHOD 05/12/2024 1:22 PM [facility] CO2 30 21 - 32 mmol/L LAB CHEMISTRY METHOD 05/12/2024 1:22 PM [facility] Anion Gap 7 3 - 11 LAB CHEMISTRY METHOD 05/12/2024 1:22 PM [facility] Glucose 219(H) 70 - 100 mg/dL LAB CHEMISTRY METHOD 05/12/2024 1:22 PM [facility] BUN 28(H) 5 - 25 mg/dL LAB CHEMISTRY METHOD 05/12/2024 1:22 PM [facility] Creatinine 0.97 0.50 - 1.10 mg/dL LAB CHEMISTRY METHOD 05/12/2024 1:22 PM [facility] eGFR 57(L) >=60 mL/min/1. 73m2 LAB CHEMISTRY METHOD 05/12/2024 1:22 PM [facility] Comment:Calculation based on the??Chronic Kidney Disease Epidemiology Collaboration (CKD-EPI) equation refit??without adjustment for race. BUN/Creatinine Ratio 28.9 LAB CHEMISTRY METHOD 05/12/2024 1:22 PM [facility] Calcium 8.6 8.5 - 10.5 mg/dL LAB CHEMISTRY METHOD 05/12/2024 1:22 PM [facility] Blood Venous blood specimen / Unknown 05/12/2024 5:48 AM EST 05/12/2024 11:28 AM EST us Torrey Kwok MD LAB BLOOD ORDERABLES Final Resul t [facility] [address] [place] [address], * (ABNORMAL) Complete blood count (05/12/2024 5:48 AM EST) [facility] WBC 7.5 4.8 - 10.8 K/mcL LAB HEMETOLOGY METHOD 05/12/2024 12:44 PM [facility] RBC 3.30(L) 3.80 - 4.80 M/mcL LAB HEMETOLOGY METHOD 05/12/2024 12:44 PM [facility] Hemoglobin 10.5(L) 11.5 - 16.0 g/dL LAB HEMETOLOGY METHOD 05/12/2024 12:44 PM [facility] Hematocrit 33.5(L) 35.0 - 47.0 % LAB HEMETOLOGY METHOD 05/12/2024 12:44 PM [facility] MCV 100.9(H) 79.0 - 98.0 FL LAB HEMETOLOGY METHOD 05/12/2024 12:44 PM [facility] MCH 31.6 27.0 - 32.0 pcg LAB HEMETOLOGY METHOD 05/12/2024 12:44 PM [facility] MCHC 31.3(L) 32.0 - 37.0 g/dL LAB HEMETOLOGY METHOD 05/12/2024 12:44 PM [facility] RDW 20.0(H) 11.0 - 15.0 % LAB HEMETOLOGY METHOD 05/12/2024 12:44 PM [facility] Platelets 386 130 - 400 K/mcL LAB HEMETOLOGY METHOD 05/12/2024 12:44 PM EST [facility] MPV 10.3 7.0 - 11.0 FL LAB HEMETOLOGY METHOD 05/12/2024 12:44 PM EST [facility] NRBC 0.0 <1.0 % LAB HEMETOLOGY METHOD 05/12/2024 12:44 PM EST [facility] NRBC Absolute 0.00 <0.10 K/mcL LAB HEMETOLOGY METHOD 05/12/2024 12:44 PM EST [facility] Blood Venous blood specimen / Unknown 05/12/2024 5:48 AM EST 05/12/2024 11:25 AM EST Torrey Kwok MD LAB BLOOD ORDERABLES Final Resul t [facility] [address] [place] [address], documented in this encounter Visit Diagnoses Diagnosis 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 V24, CMS/HCC V28) Heart failure, unspecified (CMS/HCC V24, CMS/HCC V28) Heart failure, unspecified Essential (primary) hypertension Unspecified essential hypertension 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, CMS/HCC V28) documented in this encounter Additional Health Concerns Infection Onset Date Last Indicated Resolved Time Respiratory Rule-Out 07/12/2024 07/11/2024 025 11:25 AM EDT documented as of this encounter Care Teams Grain Mill Products Inspector Relationship Specialty Start Date End Date Torrey Kwok MD [address] [facility] [address] [place] [address] PCP - General Geriatric Medicine 04/25/24 documented as of this encounter
--- OUTSIDE RECORDS SUMMARY | 2024-07-26 21:48 | XMS_ITS | Encounter Summary ---
Author Organization 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 V24, CMS/HCC V28); Heart failure, unspecified (CMS/HCC V24, CMS/HCC V28); Essential (primary) hypertension Social History Tobacco Use [...] LAB CHEMISTRY METHOD 04/25/2024 10:35 AM EST [facility] Blood Venous blood specimen / Unknown Venipuncture / Unknown 04/25/2024 5:49 AM EST 04/25/2024 9:21 AM EST us Torrey Kwok MD LAB BLOOD ORDERABLES Final Resul t [facility] [address] [place] [address], [place] [phone] * Thyroid stimulating hormone (04/25/2024 5:49 AM EST) [facility] TSH 3.04 0.40 - 4.00 mcIU/mL LAB CHEMISTRY METHOD 04/25/2024 10:35 AM EST [facility] Blood Venous blood specimen / Unknown Venipuncture / Unknown 04/25/2024 5:49 AM EST 04/25/2024 9:21 AM EST us Torrey Kwok MD LAB BLOOD ORDERABLES Final Resul t Performing Organization Address City/[facility]/ZIP Co de Phone Number [facility] [address] [place] [address], [place] [phone] * Folate (04/25/2024 5:49 AM EST) [facility] Folate 12.8 2.8 - 17.0 ng/ml LAB CHEMISTRY METHOD 04/25/2024 11:26 AM EST [facility] Blood Venous blood specimen / Unknown Venipuncture / Unknown 04/25/2024 5:49 AM EST 04/25/2024 9:21 AM EST us Torrey Kwok MD LAB BLOOD ORDERABLES Final Resul t [facility] [address] [place] [address], [place] [phone] * Vitamin B12 (04/25/2024 5:49 AM EST) [facility] Vitamin B-12 711 250 - 900 pcg/mL LAB CHEMISTRY METHOD 04/25/2024 11:26 AM EST [facility] Blood Venous blood specimen / Unknown Venipuncture / Unknown 04/25/2024 5:49 AM EST 04/25/2024 9:21 AM EST us Torrey Kwok MD LAB BLOOD ORDERABLES Final Resul t [facility] [address] [place] [address], [place] [phone] * (ABNORMAL) Hemoglobin A1c (04/25/2024 5:49 AM EST) Hemoglobin A1C 8.7(H) <6.5 % LAB CHEMISTRY METHOD 04/25/2024 1:33 PM EST [facility] Mean Bld Glu Estim. 203 mg/dL LAB CHEMISTRY METHOD 04/25/2024 1:33 PM [facility] Blood Venous blood specimen / Unknown Venipuncture / Unknown 04/25/2024 5:49 AM EST 04/25/2024 9:21 AM EST us Torrey Kwok MD LAB BLOOD ORDERABLES Final Resul t Performing Organization Address [facility]/ZIP Co de Phone Number [facility] [address] [place] [address], [place] [phone] * (ABNORMAL) Comprehensive metabolic panel (04/25/2024 5:49 AM EST) Pathologist [facility] Sodium 135 133 - 145 mmol/L LAB CHEMISTRY METHOD 04/25/2024 11:26 AM [facility] Potassium 4.0 3.5 - 5.5 mmol/L LAB CHEMISTRY METHOD 04/25/2024 11:26 AM EST [facility] Chloride 98 96 - 110 mmol/L LAB CHEMISTRY METHOD 04/25/2024 11:26 AM [facility] CO2 30 21 - 32 mmol/L LAB CHEMISTRY METHOD 04/25/2024 11:26 AM [facility] Anion Gap 7 3 - 11 LAB CHEMISTRY METHOD 04/25/2024 11:26 AM [facility] Glucose 290(H) 70 - 100 mg/dL LAB CHEMISTRY METHOD 04/25/2024 11:26 AM [facility] BUN 25 5 - 25 mg/dL LAB CHEMISTRY METHOD 04/25/2024 11:26 AM [facility] Creatinine 1.06 0.50 - 1.10 mg/dL LAB CHEMISTRY METHOD 04/25/2024 11:26 AM [facility] eGFR 51(L) >=60 mL/min/1. 73m2 LAB CHEMISTRY METHOD 04/25/2024 11:26 AM [facility] Comment:Calculation based on the??Chronic Kidney Disease Epidemiology Collaboration (CKD-EPI) equation refit??without adjustment for race. BUN/Creatinine Ratio 23.6 LAB CHEMISTRY METHOD 04/25/2024 11:26 AM [facility] Calcium 8.2(L) 8.5 - 10.5 mg/dL LAB CHEMISTRY METHOD 04/25/2024 11:26 AM [facility] AST (SGOT) 17 10 - 42 unit/L LAB CHEMISTRY METHOD 04/25/2024 11:26 AM [facility] ALT (SGPT) 16 10 - 60 unit/L LAB CHEMISTRY METHOD 04/25/2024 11:26 AM [facility] Alkaline Phosphatase 81 42 - 121 unit/L LAB CHEMISTRY METHOD 04/25/2024 11:26 AM [facility] Total Protein 5.3(L) 6.0 - 8.0 g/dL LAB CHEMISTRY METHOD 04/25/2024 11:26 AM [facility] Albumin 2.7(L) 3.2 - 5.0 g/dL LAB CHEMISTRY METHOD 04/25/2024 11:26 AM [facility] Total Bilirubin 1.2 0.0 - 1.4 mg/dL LAB CHEMISTRY METHOD 04/25/2024 11:26 AM [facility] Blood Venous blood specimen / Unknown Venipuncture / Unknown 04/25/2024 5:49 AM EST 04/25/2024 9:21 AM EST us Torrey Kwok MD LAB BLOOD ORDERABLES Final Resul t [facility] [address] [place] [address], [place] [phone] * (ABNORMAL) Complete blood count (04/25/2024 5:49 AM EST) WBC 7.7 4.8 - 10.8 K/mcL LAB HEMETOLOGY METHOD 04/25/2024 10:07 AM [facility] RBC 2.90(L) 3.80 - 4.80 M/mcL LAB HEMETOLOGY METHOD 04/25/2024 10:07 AM [facility] Hemoglobin 9.1(L) 11.5 - 16.0 g/dL LAB HEMETOLOGY METHOD 04/25/2024 10:07 AM [facility] Hematocrit 27.7(L) 35.0 - 47.0 % LAB HEMETOLOGY METHOD 04/25/2024 10:07 AM [facility] MCV 94.9 79.0 - 98.0 FL LAB HEMETOLOGY METHOD 04/25/2024 10:07 AM [facility] MCH 31.2 27.0 - 32.0 pcg LAB HEMETOLOGY METHOD 04/25/2024 10:07 AM [facility] MCHC 32.9 32.0 - 37.0 g/dL LAB HEMETOLOGY METHOD 04/25/2024 10:07 AM [facility] RDW 15.5(H) 11.0 - 15.0 % LAB HEMETOLOGY METHOD 04/25/2024 10:07 AM [facility] Platelets 214 130 - 400 K/mcL LAB HEMETOLOGY METHOD 04/25/2024 10:07 AM [facility] MPV 10.8 7.0 - 11.0 FL LAB HEMETOLOGY METHOD 04/25/2024 10:07 AM EST [facility] NRBC 0.0 <1.0 % LAB HEMETOLOG METHOD 04/25/2024 10:07 AM EST [facility] NRBC Absolute 0.00 <0.10 K/mcL LAB HEMETOLOGY METHOD 04/25/2024 10:07 AM EST [facility] Blood Venous blood specimen / Unknown Venipuncture / Unknown 04/25/2024 5:49 AM EST 04/25/2024 9:21 AM EST Torrey Kwok MD LAB BLOOD ORDERABLES Final Resul t [facility] [address] [place] [address], documented in this encounter Visit Diagnoses Diagnosis [...] documented as of this encounter Care Teams Fabric Sourcer Relationship Specialty Start Date End Date Torrey Kwok MD [address] [place] [address] [address] [place] [address] PCP - General Geriatric Medicine 04/25/24 documented as of this encounter
--- OUTSIDE RECORDS SUMMARY | 2024-07-26 21:48 | XMS_ITS | Encounter Summary ---
Author Organization [facility] Address [address] [place] [address] Care Team Providers Care Clean Room Assembler Name Role Phone Torrey Kwok MD Primary Care Provider [phone] Encounter Details Date Type Department Care Team (Late st Contact Info) Description 05/05/2024 Lab Requisition [facility] Lab [address] [place] [address] Torrey Kwok MD [address] [place] [address] Chronic kidney disease, stage 3 unspecified (CMS/HCC V24, CMS/HCC V28); Type 2 [...] LAB CHEMISTRY METHOD 05/05/2024 2:[address] [facility] Potassium 5.0 3.5 - 5.5 mmol/L LAB CHEMISTRY METHOD 05/05/2024 2:05 PM [facility] Comment:Hemolysis present Chloride 99 96 - 110 mmol/L LAB CHEMISTRY METHOD 05/05/2024 2:05 PM [facility] CO2 26 21 - 32 mmol/L LAB CHEMISTRY METHOD 05/05/2024 2:05 PM [facility] Anion Gap 9 3 - 11 LAB CHEMISTRY METHOD 05/05/2024 2:05 PM [facility] Glucose 141(H) 70 - 100 mg/dL LAB CHEMISTRY METHOD 05/05/2024 2:05 PM [facility] BUN 23 5 - 25 mg/dL LAB CHEMISTRY METHOD 05/05/2024 2:05 PM [facility] Creatinine 1.08 0.50 - 1.10 mg/dL LAB CHEMISTRY METHOD 05/05/2024 2:05 PM [facility] eGFR 50(L) >=60 mL/min/1. 73m2 LAB CHEMISTRY METHOD 05/05/2024 2:05 PM [facility] Comment:Calculation based on the??Chronic Kidney Disease Epidemiology Collaboration (CKD-EPI) equation refit??without adjustment for race. BUN/Creatinine Ratio 21.3 LAB CHEMISTRY METHOD 05/05/2024 2:05 PM [facility] Calcium 8.3(L) 8.5 - 10.5 mg/dL LAB CHEMISTRY METHOD 05/05/2024 2:05 PM [facility] Blood Venous blood specimen / Unknown Venipuncture / Unknown 05/05/2024 5:43 AM EST 05/05/2024 11:40 AM EST us Torrey Kwok MD LAB BLOOD ORDERABLES Final Resul t [facility] [address] [place] [address], documented in this encounter Visit Diagnoses Diagnosis Chronic kidney disease, stage 3 unspecified ([facility] V24, [facility] V28) Type 2 diabetes mellitus with diabetic chronic kidney disease ([facility] V24, [facility] V28) documented in this encounter Additional Health Concerns Infection Onset Date Last Indicated Resolved Time Respiratory Rule-Out 07/12/2024 07/11/2024 025 11:25 AM EDT documented as of this encounter Care Teams Clean Room Assembler Relationship Specialty Start Date End Date Torrey Kwok MD [address] [place] [address] [address] [place] [address] PCP - General Geriatric Medicine 04/25/24 documented as of this encounter
--- OUTSIDE RECORDS SUMMARY | 2024-07-26 21:48 | XMS_ITS | Encounter Summary ---
Author Organization [facility] Address [address] [place] [address] Care Team Providers Care Processing Spec Name Role Phone Torrey Kwok MD Primary Care Provider [phone] Encounter Details Date Type Department Care Team (Late st Contact Info) Description 06/20/[address] [facility] - Main Lab [address] [facility] [place] [address] Torrey Kwok MD [address] [place], [place] [id number] Essential (primary) hypertension; Type 2 diabetes mellitus without complications (CMS/HCC [...] LAB CHEMISTRY METHOD 06/20/2024 11:38 AM EDT [facility] Potassium 4.1 3.5 - [...] Resul t [facility] [address] [place] [address], * (ABNORMAL) Complete blood count (06/20/2024 6:10 AM EDT) [facility] WBC 6.5 4.8 - 10.8 K/mcL LAB [...] LAB HEMETOLOGY METHOD 06/20/2024 11:08 AM EDT [facility] NRBC Absolute 0.00 <0.10 K/mcL LAB HEMETOLOGY METHOD 06/20/2024 11:08 AM EDT [facility] Blood Venous blood specimen / Unknown Venipuncture / Unknown 06/20/2024 6:10 AM EDT 06/20/2024 10:40 AM EDT Torrey Kwok MD LAB BLOOD ORDERABLES Final Resul t [facility] [address] [place] [address], documented in this encounter Visit Diagnoses Diagnosis Essential (primary) hypertension Unspecified essential hypertension Type 2 diabetes mellitus without complications (CMS/HCC V24, CMS/HCC V28) documented in this encounter Additional Health Concerns Infection Onset Date Last Indicated Resolved Time Respiratory Rule-Out 07/12/2024 07/11/2024 025 11:25 AM EDT documented as of this encounter Care Teams Processing Spec Relationship Specialty Start Date End Date Torrey Kwok MD [address] [place] [address] [address] [place] [address] PCP - General Geriatric Medicine 04/25/24 documented as of this encounter
--- OUTSIDE RECORDS SUMMARY | 2024-07-26 21:48 | XMS_ITS | Patient Health Record ---
Author Organization [facility] Address [address] [facility] [place] [address] Care Team Providers Care Lubricating Engineer Name Role Phone Monique White Primary Care Provider Arturo Brown Unavailable [phone] Allergies Allergen (clinical drug ingredient) Drug/Non Drug [...] Problem Acquired hammer toe of right foot (6730001839990722 ) Other hammer toe(s) (acquired), right foot (M20.41) Active confirmed Problem Acquired hammer toe of left foot ([id number] ) Other hammer toe(s) (acquired), left foot (M20.42) Active confirmed Problem Polyneuropathy due to diabetes mellitus type I (895053496) Type 1 diabetes mellitus with diabetic polyneuropathy (E10.42) Active confirmed Vital Signs Blood pressure diastolic 84 mm Hg 12/04/2023 Height 4 ft 10 in in 02/05/2024 Blood pressure systolic 128 mm Hg 12/04/2023 Weight 129 lbs 02/05/2024 BMI 26.96 kg/m2 02/05/2024 Procedures Procedure Date Ordered Date Performed Result Body Sit e 97957-SECEJGZ NAIL, 6 OR MORE 09/21/2023 N/A 46730-Lzqacnmh Plate 09/21/2023 N/A 11261-MURO SKIN LESIONS, 2 TO 4 09/21/2023 N/A 60029-EVSMQMO NAIL, 6 OR MORE 12/04/2023 N/A 96695-WXRS SKIN LESIONS, 2 TO 4 12/04/2023 N/A 50025-CYTZBSJ NAIL, 6 OR MORE 02/05/2024 N/A 16917-WZFE SKIN LESIONS, 2 TO 4 02/05/2024 N/A Encounters Encounter Location Date Provider Diagnosis [facility] [place] [address] [place] [address] 09/21/2023 Arturo Simon Type 1 diabetes mellitus with diabetic polyneuropathy E10.42 ; Tinea unguium B35.1 and Ingrown nail L60.[address] [address] 12/04/2023 Arturo Simon Type 1 diabetes mellitus with diabetic polyneuropathy E10.42 and Tinea unguium B35.[address] [address] 02/05/2024 Arturo Simon Type 1 diabetes mellitus with diabetic polyneuropathy E10.42 ; Onychomycosis B35.1 ; Other hammer toe(s) (acquired), right foot M20.41 and Other hammer toe(s) (acquired), left foot M20.[address] [address] 08/01/2023 Arturo Simon [address] [address] 05/05/2024 Arturo Simon Assessments Encounter Date Diagnosis [...] X ray : Foot, right 3V 06/28/2023 10471-LAQWJLG NAIL, 6 OR MORE 05/22/2023 08895-TZQLETE NAIL, 6 OR MORE 12/12/2022 28120-PZIVKKK NAIL, 6 OR MORE 03/06/2023 92785-UHTQHPT NAIL, 6 OR MORE 01/10/2022 01276-GXPRRVC NAIL, 6 OR MORE 04/18/2022 07099-BEDCIQS NAIL, 6 OR MORE 07/11/2022 49011-LAAORCW NAIL, 6 OR MORE 10/03/2022 25437-TBGUZTQ NAIL, 6 OR MORE 09/21/2023 45217-LICBAVU NAIL, 6 OR MORE 12/04/2023 60555-UVDNXOD NAIL, 6 OR MORE 02/05/2024 84253-SOYEVYF NAIL, 6 OR MORE 07/10/2017 36241-RNOTMDV NAIL, 6 OR MORE 10/09/2017 08548-IPTKQUO NAIL, 6 OR MORE 01/08/2018 08397-QDIDTXM NAIL, 6 OR MORE 04/30/2018 90334-YFKILSF NAIL, 6 OR MORE 07/30/2018 94342-BLVGEJK NAIL, 6 OR MORE 10/29/2018 98197-MUQAGKX NAIL, 6 OR MORE 02/04/2019 86448-EIQFOGT NAIL, 6 OR MORE 05/13/2019 66652-SXIOLCI NAIL, 6 OR MORE 08/12/2019 84459-VIODTXJ NAIL, 6 OR MORE 11/11/2019 68768-EAIAGMV NAIL, 6 OR MORE 02/17/2020 20318-AJVPGYD NAIL, 6 OR MORE 05/25/2020 09082-COWCKPN NAIL, 6 OR MORE 08/24/2020 85316-IEUEKGT NAIL, 6 OR MORE 11/23/2020 64005-QEIWWBP NAIL, 6 OR MORE 02/22/2021 51866-SYDVBWZ NAIL, 6 OR MORE 05/24/2021 90899-VKWDLVK NAIL, 6 OR MORE 10/11/2021 51149-JCNNBZA NAIL, 6 OR MORE 10/06/2014 06268-XPFWNFV NAIL, 6 OR MORE 06/10/2013 08366-AKKBGGV NAIL, 6 OR MORE 03/17/2014 31904-FFHBHFN NAIL, 6 OR MORE 06/23/2014 97827-GFWPRAX NAIL, 6 OR MORE 01/05/2015 52986-OGJRSNB NAIL, 6 OR MORE 04/20/2015 04772-JDDBLYD NAIL, 6 OR MORE 07/20/2015 99889-ZYGOJOZ NAIL, 6 OR MORE 10/26/2015 75133-NTCHRQH NAIL, 6 OR MORE 01/25/2016 72274-ZHYJWNC NAIL, 6 OR MORE 05/23/2016 82292-BMLEGZL NAIL, 6 OR MORE 08/25/2016 64944-RAFWFOT NAIL, 6 OR MORE 12/05/2016 92115-WCPDNKT NAIL, 6 OR MORE 03/06/2017 52898-SJLHXON NAIL, 6 OR MORE 12/27/2010 95627-YKGRVAU NAIL, 6 OR MORE 03/21/2011 63145-LVALPDQ NAIL, 6 OR MORE 06/13/2011 37769-KJGTAFQ NAIL, 6 OR MORE 09/12/2011 97052-DUBNDQH NAIL, 6 OR MORE 12/19/2011 03164-TZWRAJV NAIL, 6 OR MORE 03/05/2012 78841-NKUHZOT NAIL, 6 OR MORE 05/31/2012 27969-ULKNDOU NAIL, 6 OR MORE 08/27/2012 66509-UKYLYZW NAIL, 6 OR MORE 12/10/2012 62693-YBAFTNB NAIL, 6 OR MORE 03/11/2013 86726-MTZOSDM NAIL, 6 OR MORE 09/16/2013 40084-JNZOSEI NAIL, 6 OR MORE 01/06/2014 02081-Zevyowoq Plate 01/06/2014 14537-Arvqnbdd Plate 09/16/2013 65542-Rrnojelj Plate 05/31/2012 54954-Dcqjafeb Plate 06/13/2011 02414-Bhelksrb Plate 03/21/2011 94424-Suqwpzlm Plate 12/05/2016 67317-Qjaewwwy Plate 07/10/2017 25035-Zzppnabw Plate 07/20/2015 79322-Yyjwbxim Plate 01/05/2015 98123-Hfzbjail Plate 08/27/2012 82484-Bzvpwhnr Plate 03/17/2014 95611-Tcjeisvi Plate 10/06/2014 47714-Szawqfim Plate 09/21/2023 85460-Isvfxfeu Plate Each Additional 72345-Nfakjmxd Plate Each Additional 01/2014 36665-Uhhvleli Plate Each Additional 14361 I&D ABSCESS- SIMPLE,SINGLE 012 03996 I&D ABSCESS- SIMPLE,SINGLE 011 94253 I&D ABSCESS- SIMPLE,SINGLE 021 09679-QDVS SKIN LESIONS, 2 TO 4 09/21/19 25037-DSRG SKIN LESIONS, 2 TO 4 02/05/20 08872-DEYO SKIN LESIONS, 2 TO 4 12/04/19 78320-XZLL SKIN LESIONS, 2 TO 4 10/04/19 57302-KGXO SKIN LESIONS, 2 TO 4 07/12/19 70016-DRRC SKIN LESIONS, 2 TO 4 04/18/19 08295-BKFO SKIN LESIONS, 2 TO 4 01/11/20 50292-HNLE SKIN LESIONS, 2 TO 4 03/06/20 46288-VLZU SKIN LESIONS, 2 TO 4 12/13/19 48418-YCQZ SKIN LESIONS, 2 TO 4 05/22/19 24 28520-HTPJ SKIN LESIONS, 2 TO 4 10/12/19 46086-HFOX SKIN LESIONS, 2 TO 4 05/24/19 46726-PDHJ SKIN LESIONS, 2 TO 4 02/23/20 21 19211-BCLA SKIN LESIONS, 2 TO 4 11/24/19 56058-MDSG SKIN LESIONS, 2 TO 4 08/25/19 90287-MHRM SKIN LESIONS, 2 TO 4 05/25/19 77996-MSHO SKIN LESIONS, 2 TO 4 02/17/20 42215-QWOP SKIN LESIONS, 2 TO 4 11/11/19 80753-FXFQ SKIN LESIONS, 2 TO 4 08/12/19 91807-LOZN SKIN LESIONS, 2 TO 4 05/13/19 36246-IPHQ SKIN LESIONS, 2 TO 4 02/05/20 69482-RHOK SKIN LESIONS, 2 TO 4 10/30/19 22514-ZMPQ SKIN LESIONS, 2 TO 4 07/31/19 55672-REDI SKIN LESIONS, 2 TO 4 04/30/19 48130-RUWX SKIN LESIONS, 2 TO 4 01/09/20 18 83979-LPKK SKIN LESIONS, 2 TO 4 10/10/19 18 05038-GGVF SKIN LESIONS, 2 TO 4 05/31/19 13 06024-VKTC SKIN LESIONS, 2 TO 4 03/05/20 12 47484-SCTX SKIN LESIONS, 2 TO 4 12/19/19 12 04146-TZXZ SKIN LESIONS, 2 TO 4 08/28/19 13 40724-QXVM SKIN LESIONS, 2 TO 4 03/11/20 13 90169-JBYD SKIN LESIONS, 2 TO 4 12/11/19 13 63140-IAYZ SKIN LESIONS, 2 TO 4 01/07/20 14 86925-AVKG SKIN LESIONS, 2 TO 4 09/17/19 14 69810-VREX SKIN LESIONS, 2 TO 4 04/20/19 16 21012-DLEV SKIN LESIONS, 2 TO 4 01/06/20 15 31764-KHWG SKIN LESIONS, 2 TO 4 06/24/19 15 59220-ZJVW SKIN LESIONS, 2 TO 4 10/07/19 15 17058-YCJD SKIN LESIONS, 2 TO 4 03/17/20 14 32823-IJKF SKIN LESIONS, 2 TO 4 06/11/19 14 36913-RYUV SKIN LESIONS, 2 TO 4 07/20/19 16 33037-HIQW SKIN LESIONS, 2 TO 4 10/26/19 16 27232-MDYJ SKIN LESIONS, 2 TO 4 05/23/19 17 16982-FZMA SKIN LESIONS, 2 TO 4 08/26/19 17 12218-GFLK SKIN LESIONS, 2 TO 4 01/25/20 16 16542-CXHL SKIN LESIONS, 2 TO 4 07/11/19 18 19777-VXCR SKIN LESIONS, 2 TO 4 03/06/20 17 01429-BSQC SKIN LESIONS, 2 TO 4 12/06/19 17 52697-DSTG SKIN LESION 09/12/2011 31966-QRYH SKIN LESION 03/21/2011 10909-HNDL SKIN LESION 06/13/2011 83035-Hsnuxvxxl, Toes 06/28/2023 Next Appt Details Provider Name:Arturo Ismael VanceAlfred , 08/15/2024 10:15:00 AM, [address] [place], [address], Insurance Providers Payer Name Payer Address Payer Phone Subscriber Number Group Number Insured Name Patient Relationship to Insured Coverage Start Date Coverage End Date Medicare National Govt [facility] [address] [place] [address] [id number] Gerri Sanchez Self - patient is the insured 2 [employer] Blue [employer] [address] [place] [address] [id number] Gerri Sanchez Self - patient is [...] Hospitalization History Reason Date(Month/Year) [facility]- [facility]TI 11/16/23 [facility]: A-fib 12/2015 [facility] / for medication 6 [facility] cath put in 04/2015
--- OUTSIDE RECORDS SUMMARY | 2024-07-26 21:48 | XMS_ITS | Encounter Summary ---
Author Organization [facility] Address [address] [place] [address] Care Team Providers Care Electrostatic Paint Operator Name Role Phone Torrey Kwok MD Primary Care Provider [phone] Encounter Details Date Type Department Care Team (Late st Contact Info) Description 07/03/[address] [facility] - Main Lab [address] [facility] [email or web address] [address] Torrey Kwok MD [address] [place] [address] Chronic kidney disease, stage 3 unspecified (CMS/HCC V24, CMS/HCC V28); Type 2 diabetes mellitus with hyperglycemia (CMS/HCC V24, CMS/HCC V28) Social History Tobacco [...] Hold for add-ons. 07/04/2024 12:01 PM EDT [facility] Comment:Auto resulted. Blood Venous blood specimen / Unknown Venipuncture / Unknown 07/04/2024 7:07 AM EDT 07/04/2024 10:40 AM EDT Torrey Kwok MD LAB BLOOD ORDERABLES Final Resul t [facility] [address] [place] [address], documented in this encounter Visit Diagnoses Diagnosis Chronic kidney disease, stage 3 unspecified (CMS/[facility] V24, CMS/[facility] V28) Type 2 diabetes mellitus with hyperglycemia (CMS/[facility] V24, [facility] V28) documented in this encounter Additional Health Concerns Infection Onset Date Last Indicated Resolved Time Respiratory Rule-Out 07/12/2024 07/11/2024 025 11:25 AM EDT documented as of this encounter Care Teams Electrostatic Paint Operator Relationship Specialty Start Date End Date Torrey Kwok MD [address] [place] [address] [address] [place] [address] PCP - General Geriatric Medicine 04/25/24 documented as of this encounter
--- OUTSIDE RECORDS SUMMARY | 2024-07-26 21:48 | XMS_ITS ---
[facility] Organization [facility] Address [address] [place] [address] Care Team Providers Care Scientific Programmer Analyst Name Role Phone Monique White Primary Care Provider Arturo Brown Unavailable [phone] Allergies Allergen (clinical drug ingredient) Drug/Non Drug [...] Ordered Date Performed Result Body Sit e 80932-WUINYMO NAIL, 6 OR MORE 02/05/2024 N/A 01089-PANZ SKIN LESIONS, 2 TO 4 02/05/2024 N/A Encounters Encounter Location Date Provider Diagnosis [facility] [address] [place] [address] 02/05/2024 Arturo Simon Type 1 diabetes mellitus [...] INSTRUCTIONS.pdf) Pending Test Test Name Order Date 86671-CJQIVAM NAIL, 6 OR MORE 02/05/2024 93227-INQU SKIN LESIONS, 2 TO 4 02/05/20 24 Next Appt Details Follow Up: prn, Reason: Provider Name:Arturo Simon , 08/15/2024 10:15:00 AM, [address] [place], [address], Procedure Notes * Category Sub-Category Detail Notes Debride Nail 6-10 Nail debridement Performance o f this nail treatment by a nonprofessional would put this patients foot and overall health at risk. Therefore, nail debridement was performed extensively to reduce/remove overall nail length, girth, thickness, subungual debris, and necrotic tissue, by manual and/or electrical means through the use of a nail nipper and/or dremel-type knife grinder, to a more viable healthy nail plate or bed tissue 6-10. Silver nitrate used for any petechial bleeding as necessary. Definitive antifungal treatment options have been reviewed and discussed with the patient. The patient chooses, no pharmaceutical tx - 00146 Keratoma Treatment Parring or Cutting o f Benign Hyperkeratotic Lesion(s) (-56) 2-4 Lesions - The Benign hyperkeratotic lesions, as described above were pared, and/or cut utilizing a sterile 15 blade, tissue nippers, and/or dremel - 03209 Progress Notes * Gerri SCHWARTZ RDOB:[birth year] (88 yo F)Acc No.[id number]:02/05/2024 Progress Note Patient:?Gerri SCHWARTZ R Provider:?Arturo Simon DPM :1935???Age:88 Y???Sex:Female D ate:02/05/2024 Address: [id number] Pcp:Monique White Subjective: * Chief Complaints: * [...] Hospitalization/Major Diagno stic Procedure:?[facility] 04/2015[facility] / for medication 04/2015[facility]: A-fib 12/2015[facility]- UTI 11/16/23 * [...] bike. ?Marital status: . 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 * Medications:?TakingToujeo Ma x SoloStar 300 UNIT/ML [...] use of a nail nipper and/or dremel-type knife grinder, to a more viable healthy nail plate or bed tissue 6-10. Silver nitrate used for any petechial bleeding as necessary. Definitive antifungal treatment options have been reviewed and discussed with the patient. The patient chooses, no pharmaceutical tx - 52615.?Keratoma Treatment:?Parring or Cutting of Benign Hyperkeratotic Lesion(s)?(-56) 2-4 Lesions - The Benign hyperkeratotic lesions, as described above were pared, and/or cut utilizing a sterile 15 blade, tissue nippers, and/or dremel - 60704.? * Procedure Codes:?32856 DEBRI DE NAIL, 6 OR MORE, Modifiers: XS 10074 TRIM SKIN LESIONS, 2 TO 4, Modifiers: [...] Simon DPM Date:?2023 Generated for Awilda diggs/Lee/Nilay on:?07/26/2024 09:47 PM EDT History and Physical Notes * [...]
--- OUTSIDE RECORDS SUMMARY | 2024-07-26 21:48 | XMS_ITS ---
Author Organization [facility] Address [address] [place] [address] Care Team Providers Care Internet Marketing Consultant Name Role Phone Monique White MD Primary Care Provider Yane Epps Jr, John Unavailable REASON FOR VISIT refill omeprazole Medications Medication SIG (Take, Route, Frequency, Duration) Notes Start Date End Date Status Omeprazole 20 TAKE 1 CAPSULE BY MO UTH TWICE DAILY for 90 days Active Encounters Encounter Location Date Provider Diagnosis [facility] [address] [place] [phone] 07/09/2023 John Epps Jr Plan Of Treatment Medication Medication Name Sig Start Date Stop Date Notes Omeprazole 20 TAKE 1 CAPSULE BY MO UTH TWICE DAILY for 90 days Progress Notes * CHARLY SCHWARTZ RDOB:[birth year] (87 yo F)Acc No.[id number]:07/09/2023 Patient:?CHARLY SCHWARTZ :1935???Age:87 Y???Sex:Female Address:[place] [address] * Refills? Refill Omeprazole Capsule Delayed Release, 20, 180, TAKE 1 CAPSULE BY MOUTH TWICE DAILY, 90 days, Refills=3 * true * Date:? Generated for Awilda diggs/Lee/eTransmitting on:?07/26/2024 09:47 PM EDT
--- OUTSIDE RECORDS SUMMARY | 2024-07-26 21:48 | XMS_ITS | Encounter Summary ---
Author Organization [facility] Address [address] [place] [address] Care Team Providers Care Keeler Polygraph Operator Name Role Phone Torrey Kwok MD Primary Care Provider [phone] Encounter Details Date Type Department Care Team (Late st Contact Info) Description 06/28/2024 Lab Requisition [facility] - Main Lab [address] [facility] [place] [address] Torrey Kwok MD [address] [place], [place] [phone] Type 2 diabetes mellitus with diabetic chronic [...] Essential (primary) hypertension Heart failure, unspecified ([facility]) 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 ([facility]) documented in this encounter Results * [...] mg/dL LAB CHEMISTRY METHOD 06/30/2024 12:00 PM EDT [facility] Blood Venous blood specimen / Unknown Venipuncture / Unknown 06/30/2024 6:10 AM EDT 06/30/2024 11:01 AM EDT us Torrey Kwok MD LAB BLOOD ORDERABLES Final Resul t [facility] [address] [place] [address], * (ABNORMAL) Complete blood count (06/30/2024 6:10 AM EDT) WBC 6.0 4.8 - 10.8 K/mcL LAB HEMETOLOGY METHOD [facility] RBC 2.90(L) 3.80 - [...] LAB HEMETOLOGY METHOD 06/30/2024 11:46 AM EDT [facility] MCH 32.3(H) 27.0 - 32.0 pcg LAB HEMETOLOGY METHOD 06/30/2024 11:46 AM [facility] MCHC 31.8(L) 32.0 - 37.0 g/dL LAB HEMETOLOGY METHOD 06/30/2024 11:46 AM [facility] RDW 18.5(H) 11.0 - 15.0 % LAB HEMETOLOGY METHOD 06/30/2024 11:46 AM EDT [facility] Platelets 309 130 - 400 K/mcL LAB HEMETOLOGY METHOD 06/30/2024 11:46 AM EDT [facility] MPV 10.7 7.0 - 11.0 FL LAB HEMETOLOGY METHOD 06/30/2024 11:46 AM EDT [facility] NRBC 0.0 <1.0 % LAB HEMETOLOGY METHOD 06/30/2024 11:46 AM EDT [facility] NRBC Absolute 0.00 <0.10 K/mcL LAB HEMETOLOGY METHOD 06/30/2024 11:46 AM EDT [facility] Blood Venous blood specimen / Unknown Venipuncture / Unknown 06/30/2024 6:10 AM EDT 06/30/2024 11:01 AM EDT Torrey Kwok MD LAB BLOOD ORDERABLES Final Resul t [facility] [address] [place] [address], documented in this encounter Visit Diagnoses Diagnosis 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, CMS/HCC V28) Essential (primary) hypertension Unspecified essential hypertension Heart failure, unspecified (CMS/HCC V24, CMS/HCC V28) Heart failure, unspecified 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
--- OUTSIDE RECORDS SUMMARY | 2024-07-26 21:48 | XMS_ITS | Encounter Summary ---
Author Organization [facility] Address [address] [place] [address] Care Team Providers Care Powder Press Operator Name Role Phone Torrey Kwok MD Primary Care Provider [phone] Encounter Details Date Type Department Care Team (Late st Contact Info) Description 05/16/2024 Lab Requisition [facility] - Main Lab [address] [facility] [place] [address] Torrey Kwok MD [address] [place], [place] [phone] Heart failure, unspecified (CMS/HCC V24, CMS/HCC V28); [...] mmol/L LAB CHEMISTRY METHOD 05/19/2024 2:03 PM [facility] Potassium 3.7 3.5 - 5.5 mmol/L LAB CHEMISTRY METHOD 05/19/2024 2:03 PM [facility] Chloride 102 96 - 110 mmol/L LAB CHEMISTRY METHOD 05/19/2024 2:03 PM [facility] CO2 25 21 - 32 mmol/L LAB CHEMISTRY METHOD 05/19/2024 2:03 PM [facility] Anion Gap 10 3 - 11 LAB CHEMISTRY METHOD 05/19/2024 2:03 PM [facility] Glucose 92 70 - 100 mg/dL LAB CHEMISTRY METHOD 05/19/2024 2:03 PM [facility] BUN 23 5 - 25 mg/dL LAB CHEMISTRY METHOD 05/19/2024 2:03 PM [facility] Creatinine 0.97 0.50 - 1.10 mg/dL LAB CHEMISTRY METHOD 05/19/2024 2:03 PM [facility] eGFR 57(L) >=60 mL/min/1. 73m2 LAB CHEMISTRY METHOD 05/19/2024 2:03 PM [facility] Comment:Calculation based on the??Chronic Kidney Disease Epidemiology Collaboration (CKD-EPI) equation refit??without adjustment for race. BUN/Creatinine Ratio 23.7 LAB CHEMISTRY METHOD 05/19/2024 2:03 PM [facility] Calcium 8.8 8.5 - 10.5 mg/dL LAB CHEMISTRY METHOD 05/19/2024 2:03 PM [facility] Blood Venous blood specimen / Unknown Venipuncture / Unknown 05/19/2024 7:33 AM EST 05/19/2024 12:17 PM EST Torrey Kwok MD LAB BLOOD ORDERABLES Final Resul t [facility] [address] [place] [address], * (ABNORMAL) Complete blood count (05/19/2024 7:33 AM EST) WBC 5.4 4.8 - 10.8 K/mcL LAB HEMETOLOGY METHOD 05/19/2024 1:26 PM EST [facility] RBC 3.50(L) 3.80 - 4.80 M/mcL LAB HEMETOLOGY METHOD 05/19/2024 1:26 PM [facility] Hemoglobin 11.1(L) 11.5 - 16.0 g/dL LAB HEMETOLOGY METHOD 05/19/2024 1:26 PM [facility] Hematocrit 35.7 35.0 - 47.0 % LAB HEMETOLOGY METHOD 05/19/2024 1:26 PM EST [facility] MCV 103.5(H) 79.0 - 98.0 FL LAB HEMETOLOGY METHOD 05/19/2024 1:26 PM [facility] MCH 32.2(H) 27.0 - 32.0 pcg LAB HEMETOLOGY METHOD 05/19/2024 1:26 PM [facility] MCHC 31.1(L) 32.0 - 37.0 g/dL LAB HEMETOLOGY METHOD 05/19/2024 1:26 PM [facility] RDW 20.0(H) 11.0 - 15.0 % LAB HEMETOLOGY METHOD 05/19/2024 1:26 PM [facility] Platelets 344 130 - 400 K/mcL LAB HEMETOLOGY METHOD 05/19/2024 1:26 PM [facility] MPV 10.8 7.0 - 11.0 FL LAB HEMETOLOGY METHOD 05/19/2024 1:26 PM [facility] NRBC 0.0 <1.0 % LAB HEMETOLOGY METHOD 05/19/2024 1:26 PM EST [facility] NRBC Absolute 0.00 <0.10 K/mcL LAB HEMETOLOGY METHOD 05/19/2024 1:26 PM EST [facility] Blood Venous blood specimen / Unknown Venipuncture / Unknown 05/19/2024 7:33 AM EST 05/19/2024 12:17 PM EST us Torrey Kwok MD LAB BLOOD ORDERABLES Final Resul t [facility] [address] [place] [address], documented in this encounter Visit Diagnoses Diagnosis Heart failure, unspecified (CMS/HCC V24, CMS/HCC V28) Heart failure, unspecified Essential (primary) hypertension Unspecified essential hypertension 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, CMS/HCC V28) documented in this encounter Additional Health Concerns Infection Onset Date Last Indicated Resolved Time Respiratory Rule-Out 07/12/2024 07/11/2024 025 11:25 AM EDT documented as of this encounter Care Teams Powder Press Operator Relationship Specialty Start Date End Date Torrey Kwok MD [address] [place] [address] [address] [place] [address] PCP - General Geriatric Medicine 04/25/24 documented as of this encounter
--- OUTSIDE RECORDS SUMMARY | 2024-07-26 21:48 | XMS_ITS | Encounter Summary ---
Author Organization [facility] Address [address] [place] [phone] Care Team Providers Care Office Machine Installer Name Role Phone Torrey Kwok MD Primary Care Provider [phone] Encounter Details Date Type Department Care Team (Late st Contact Info) Description 05/30/2024 Lab Requisition [facility] - Main Lab [address] [place] [address] Torrey Kwok MD [address] [place] [address] Essential (primary) hypertension; Type 2 diabetes mellitus [...] LAB CHEMISTRY METHOD 05/30/2024 5:00 PM EST [facility] Potassium 3.6 3.5 - 5.5 mmol/L LAB CHEMISTRY METHOD 05/30/2024 5:00 PM [facility] Chloride 104 96 - 110 mmol/L LAB CHEMISTRY METHOD 05/30/2024 5:00 PM [facility] CO2 26 21 - 32 mmol/L LAB CHEMISTRY METHOD 05/30/2024 5:00 PM [facility] Anion Gap 9 3 - 11 LAB CHEMISTRY METHOD 05/30/2024 5:00 PM [facility] Glucose 81 70 - 100 mg/dL LAB CHEMISTRY METHOD 05/30/2024 5:00 PM [facility] BUN 31(H) 5 - 25 mg/dL LAB CHEMISTRY METHOD 05/30/2024 5:00 PM [facility] Creatinine 1.11(H) 0.50 - 1.10 mg/dL LAB CHEMISTRY METHOD 05/30/2024 5:00 PM [facility] eGFR 48(L) >=60 mL/min/1. 73m2 LAB CHEMISTRY METHOD 05/30/2024 5:00 PM [facility] Comment:Calculation based on the??Chronic Kidney Disease Epidemiology Collaboration (CKD-EPI) equation refit??without adjustment for race. BUN/Creatinine Ratio 27.9 LAB CHEMISTRY METHOD 05/30/2024 5:00 PM [facility] Calcium 8.8 8.5 - 10.5 mg/dL LAB CHEMISTRY METHOD 05/30/2024 5:00 PM [facility] Blood Venous blood specimen / Unknown Venipuncture / Unknown 05/30/2024 3:45 PM EST 05/30/2024 4:21 PM EST us Torrey Kwok MD LAB BLOOD ORDERABLES Final Resul t [facility] [address] [place] [address], [place] [phone] * (ABNORMAL) Complete blood count (05/30/2024 3:45 PM EST) [facility] WBC 7.1 4.8 - 10.8 K/mcL LAB HEMETOLOGY METHOD 05/30/2024 4:35 PM [facility] RBC 3.20(L) 3.80 - 4.80 M/mcL LAB HEMETOLOGY METHOD 05/30/2024 4:35 PM [facility] Hemoglobin 10.3(L) 11.5 - 16.0 g/dL LAB HEMETOLOGY METHOD 05/30/2024 4:35 PM [facility] Hematocrit 32.0(L) 35.0 - 47.0 % LAB HEMETOLOGY METHOD 05/30/2024 4:35 PM [facility] MCV 100.0(H) 79.0 - 98.0 FL LAB HEMETOLOGY METHOD 05/30/2024 4:35 PM [facility] MCH 32.2(H) 27.0 - 32.0 pcg LAB HEMETOLOGY METHOD 05/30/2024 4:35 PM [facility] MCHC 32.2 32.0 - 37.0 g/dL LAB HEMETOLOGY METHOD 05/30/2024 4:35 PM [facility] RDW 18.3(H) 11.0 - 15.0 % LAB HEMETOLOGY METHOD 05/30/2024 4:35 PM [facility] Platelets 319 130 - 400 K/mcL LAB HEMETOLOGY METHOD 05/30/2024 4:35 PM [facility] MPV 10.1 7.0 - 11.0 FL LAB HEMETOLOGY METHOD 05/30/2024 4:35 PM [facility] NRBC 0.0 <1.0 % LAB HEMETOLOGY METHOD 05/30/2024 4:35 PM [facility] NRBC Absolute 0.00 <0.10 K/mcL LAB HEMETOLOGY METHOD 05/30/2024 4:35 PM EST [facility] Blood Venous blood specimen / Unknown Venipuncture / Unknown 05/30/2024 3:45 PM EST 05/30/2024 4:21 PM EST us Torrey Kwok MD LAB BLOOD ORDERABLES Final Resul t [facility] [address] [place] [address], documented in this encounter Visit Diagnoses Diagnosis Essential (primary) hypertension Unspecified essential hypertension Type 2 diabetes mellitus without complications (CMS/HCC V24, CMS/HCC V28) documented in this encounter Additional Health Concerns Infection Onset Date Last Indicated Resolved Time Respiratory Rule-Out 07/12/2024 07/11/2024 025 11:25 AM EDT documented as of this encounter Care Teams Office Machine Installer Relationship Specialty Start Date End Date Torrey Kwok MD [address] [place] [address] [address] [place] [address] PCP - General Geriatric Medicine 04/25/24 documented as of this encounter
--- OUTSIDE RECORDS SUMMARY | 2024-07-26 21:48 | XMS_ITS | Encounter Summary ---
Author Organization [facility] Address [address] [place] [phone] Care Team Providers Care Equipment Washer Name Role Phone Torrey Kwok MD Primary Care Provider [phone] Encounter Details Date Type Department Care Team (Late st Contact Info) Description 05/09/2024 Lab Requisition [facility] - Main Lab [address] [facility] [place] [address] Torrey Kwok MD [address] [place], [place] [phone] Type 2 diabetes mellitus with unspecified diabetic [...] documented as of this encounter Care Teams Equipment Washer Relationship Specialty Start Date End Date Torrey Kwok MD [address] [place] [address] [address] [place] [address] PCP - General Geriatric Medicine 04/25/24 documented as of this encounter
--- OUTSIDE RECORDS SUMMARY | 2024-07-26 21:48 | XMS_ITS | Encounter Summary ---
Author Organization [facility] Address [address] [place] [address] Care Team Providers Care Behavior Analyst Name Role Phone Torrey Kwok MD Primary Care Provider [phone] Encounter Details Date Type Department Care Team (Late st Contact Info) Description 06/02/2024 Lab Requisition [facility] - Main Lab [address] [facility] [place] [address] oTrrey Kwok MD [address] [place], [place] [phone] Chronic diastolic (congestive) heart failure (CMS/HCC V24, CMS/HCC V28); Chronic kidney disease, stage 3 unspecified (CMS/HCC V24, CMS/HCC V28) Social History [...] mmol/L LAB CHEMISTRY METHOD 06/02/2024 3:36 PM [facility] Potassium 3.5 3.5 - 5.5 mmol/L LAB CHEMISTRY METHOD 06/02/2024 3:36 PM [facility] Chloride 93(L) 96 - 110 mmol/L LAB CHEMISTRY METHOD 06/02/2024 3:36 PM [facility] CO2 29 21 - 32 mmol/L LAB CHEMISTRY METHOD 06/02/2024 3:36 PM [facility] Anion Gap 8 3 - 11 LAB CHEMISTRY METHOD 06/02/2024 3:36 PM [facility] Glucose 468(HH) 70 - 100 mg/dL LAB CHEMISTRY METHOD 06/02/2024 3:36 PM [facility] BUN 43(H) 5 - 25 mg/dL LAB CHEMISTRY METHOD 06/02/2024 3:36 PM [facility] Creatinine 1.43(H) 0.50 - 1.10 mg/dL LAB CHEMISTRY METHOD 06/02/2024 3:36 PM [facility] eGFR 36(L) >=60 mL/min/1. 73m2 LAB CHEMISTRY METHOD 06/02/2024 3:36 PM [facility] Comment:Calculation based on the??Chronic Kidney Disease Epidemiology Collaboration (CKD-EPI) equation refit??without adjustment for race. BUN/Creatinine Ratio 30.1 LAB CHEMISTRY METHOD 06/02/2024 3:36 PM [facility] Calcium 8.7 8.5 - 10.5 mg/dL LAB CHEMISTRY METHOD 06/02/2024 3:36 PM [facility] Blood Venous blood specimen / Unknown Venipuncture / Unknown 06/02/2024 12:17 PM EST 06/02/2024 2:05 PM EST Torrey Kwok MD LAB BLOOD ORDERABLES Final Resul t [facility] [address] [place] [address], * (ABNORMAL) Complete blood count (06/02/2024 12:17 PM EST) WBC 9.0 4.8 - 10.8 K/mcL LAB HEMETOLOGY METHOD 06/02/2024 2:27 PM EST [facility] RBC 3.60(L) 3.80 - 4.80 M/mcL LAB HEMETOLOGY METHOD 06/02/2024 2:27 PM [facility] Hemoglobin 11.5 11.5 - 16.0 g/dL LAB HEMETOLOGY METHOD 06/02/2024 2:27 PM [facility] Hematocrit 35.4 35.0 - 47.0 % LAB HEMETOLOGY METHOD 06/02/2024 2:27 PM EST [facility] MCV 97.8 79.0 - 98.0 FL LAB HEMETOLOGY METHOD 06/02/2024 2:27 PM EST [facility] MCH 31.8 27.0 - 32.0 pcg LAB HEMETOLOGY METHOD 06/02/2024 2:27 PM [facility] MCHC 32.5 32.0 - 37.0 g/dL LAB HEMETOLOGY METHOD 06/02/2024 2:27 PM EST [facility] RDW 17.8(H) 11.0 - 15.0 % LAB HEMETOLOGY METHOD 06/02/2024 2:27 PM [facility] Platelets 342 130 - 400 K/mcL LAB HEMETOLOGY METHOD 06/02/2024 2:27 PM [facility] MPV 10.4 7.0 - 11.0 FL LAB HEMETOLOGY METHOD 06/02/2024 2:27 PM [facility] NRBC 0.0 <1.0 % LAB HEMETOLOGY METHOD 06/02/2024 2:27 PM EST [facility] NRBC Absolute 0.00 <0.10 K/mcL LAB HEMETOLOGY METHOD 06/02/2024 2:27 PM EST [facility] Blood Venous blood specimen / Unknown Venipuncture / Unknown 06/02/2024 12:17 PM EST 06/02/2024 2:05 PM EST Torrey Kwok MD LAB BLOOD ORDERABLES Final Resul t [facility] [address] [place] [address], documented in this encounter Visit Diagnoses Diagnosis Chronic diastolic (congestive) heart failure (CMS/HCC V24, CMS/HCC V28) Chronic kidney disease, stage 3 unspecified (CMS/HCC V24, CMS/HCC V28) documented in this encounter Additional Health Concerns Infection Onset Date Last Indicated Resolved Time Respiratory Rule-Out 07/12/2024 07/11/2024 025 11:25 AM EDT documented as of this encounter Care Teams Behavior Analyst Relationship Specialty Start Date End Date Torrey Kwok MD [address] [place] [address] [address] [place] [address] PCP - General Geriatric Medicine 04/25/24 documented as of this encounter
--- OUTSIDE RECORDS SUMMARY | 2024-07-26 21:48 | XMS_ITS | Encounter Summary ---
Author Organization [facility] Address [address] [place] [phone] Care Team Providers Care Certified Surgical Assistant Name Role Phone Torrey Kwok MD Primary Care Provider [phone] Encounter Details Date Type Department Care Team (Late st Contact Info) Description 07/18/2024 Lab Requisition [facility] - Main Lab 299 [facility] [address] Torrey Kwok MD [address] [place], [place] [id number] Type 2 diabetes mellitus with diabetic chronic [...] Associated Diagnosis Comments COMPLETE BLOOD COUNT Routine 07/21/2024 7:11 AM EDT 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, CMS/HCC V28) Essential (primary) hypertension Heart failure, unspecified (CMS/HCC V24, CMS/HCC V28) 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 V24, CMS/HCC V28) BASIC METABOLIC PANEL Routine 07/21/2024 7:11 AM EDT Type 2 diabetes mellitus with diabetic chronic kidney disease ([facility] V24, [facility] V28) Essential (primary) hypertension Heart failure, unspecified ([facility] V24, [facility] V28) 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 ([facility] V24, [facility] V28) documented in this encounter Results * (ABNORMAL) Basic metabolic panel (07/21/2024 7:11 AM EDT) Sodium 139 133 - 145 mmol/L LAB CHEMISTRY METHOD 07/21/2024 1:01 PM [facility] Potassium 3.0(L) 3.5 - 5.5 mmol/L LAB CHEMISTRY METHOD 07/21/2024 1:01 PM [facility] Chloride 99 96 - 110 mmol/L LAB CHEMISTRY METHOD 07/21/2024 1:01 PM [facility] CO2 34(H) 21 - 32 mmol/L LAB CHEMISTRY METHOD 07/21/2024 1:01 PM [facility] Anion Gap 6 3 - 11 LAB CHEMISTRY METHOD 07/21/2024 1:01 PM [facility] Glucose 46(L) 70 - 100 mg/dL LAB CHEMISTRY METHOD 07/21/2024 1:01 PM [facility] BUN 33(H) 5 - 25 mg/dL LAB CHEMISTRY METHOD 07/21/2024 1:01 PM [facility] Creatinine 1.06 0.50 - 1.10 mg/dL LAB CHEMISTRY METHOD 07/21/2024 1:01 PM [facility] eGFR 51(L) >=60 mL/min/1. 73m2 LAB CHEMISTRY METHOD 07/21/2024 1:01 PM [facility] Comment:Calculation based on the??Chronic Kidney Disease Epidemiology Collaboration (CKD-EPI) equation refit??without adjustment for race. BUN/Creatinine Ratio 31.1 LAB CHEMISTRY METHOD 07/21/2024 1:01 PM EDT [facility] Calcium 8.5 8.5 - 10.5 mg/dL LAB CHEMISTRY METHOD 07/21/2024 1:01 PM EDT [facility] Blood Venous blood specimen / Unknown Venipuncture / Unknown 07/21/2024 7:11 AM EDT 07/21/2024 12:26 PM EDT Torrey Kwok MD LAB BLOOD ORDERABLES Final Resul t [facility] [address] [place] [address], * (ABNORMAL) Complete blood count (07/21/2024 7:11 AM EDT) WBC 7.8 4.8 - 10.8 K/mcL LAB HEMETOLOGY METHOD 07/21/2024 1:34 PM [facility] RBC 3.30(L) 3.80 - 4.80 M/mcL LAB HEMETOLOGY METHOD 07/21/2024 1:34 PM T [facility] Hemoglobin 10.6(L) 11.5 - 16.0 g/dL LAB HEMETOLOGY METHOD 07/21/2024 1:34 PM [facility] Hematocrit 33.4(L) 35.0 - 47.0 % LAB HEMETOLOGY METHOD 07/21/2024 1:34 PM [facility] MCV 100.6(H) 79.0 - 98.0 FL LAB HEMETOLOGY METHOD 07/21/2024 1:34 PM [facility] MCH 31.9 27.0 - 32.0 pcg LAB HEMETOLOGY METHOD 07/21/2024 1:34 PM [facility] MCHC 31.7(L) 32.0 - 37.0 g/dL LAB HEMETOLOGY METHOD 07/21/2024 1:34 PM EDT [facility] RDW 17.4(H) 11.0 - 15.0 % LAB HEMETOLOGY METHOD 07/21/2024 1:34 PM EDT [facility] Platelets 283 130 - 400 K/mcL LAB HEMETOLOGY METHOD 07/21/2024 1:34 PM EDT [facility] MPV 10.9 7.0 - 11.0 FL LAB HEMETOLOGY METHOD 07/21/2024 1:34 PM EDT [facility] NRBC 0.0 <1.0 % LAB HEMETOLOGY METHOD 07/21/2024 1:34 PM EDT [facility] NRBC Absolute 0.00 <0.10 K/mcL LAB HEMETOLOGY METHOD 07/21/2024 1:34 PM EDT [facility] Blood Venous blood specimen / Unknown Venipuncture / Unknown 07/21/2024 7:11 AM EDT 07/21/2024 12:26 PM EDT Torrey Kwok MD LAB BLOOD ORDERABLES Final Resul t [facility] [address] [place] [address], documented in this encounter Visit Diagnoses Diagnosis 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, CMS/HCC V28) Essential (primary) hypertension Unspecified essential hypertension Heart failure, unspecified (CMS/HCC V24, CMS/HCC V28) Heart failure, unspecified 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
--- OUTSIDE RECORDS SUMMARY | 2024-07-26 21:48 | XMS_ITS | Encounter Summary ---
Author Organization [facility] Address [address] [place] [phone] Care Team Providers Care Asbestos Surveyor Name Role Phone Torrey Kwok MD Primary Care Provider [phone] Encounter Details Date Type Department Care Team (Late st Contact Info) Description 05/06/2024 Lab Requisition [facility] Lab [address] [place] [address] Torrey Kwok MD [address] [place] [address] Type 2 diabetes mellitus without complications (CMS/HCC [...] LAB CHEMISTRY METHOD 05/07/2024 1:13 PM EST [facility] Potassium 4.1 3.5 - 5.5 mmol/L [...] EST 05/07/2024 11:51 AM EST us Torrey Kowk MD LAB BLOOD ORDERABLES Final Resul t [facility] [address] [place] [address], * (ABNORMAL) Complete blood count (05/07/2024 8:42 AM EST) [facility] WBC 9.1 4.8 - 10.8 K/mcL LAB HEMETOLOGY METHOD 05/07/2024 12:40 PM [facility] RBC 3.90 3.80 - 4.80 M/mcL LAB HEMETOLOGY METHOD 05/07/2024 12:40 PM [facility] [...] K/mcL LAB HEMETOLOGY METHOD 05/07/2024 12:40 PM [facility] MPV 10.7 7.0 - 11.0 FL LAB HEMETOLOGY METHOD 05/07/2024 12:40 PM [facility] NRBC 0.0 <1.0 % LAB HEMETOLOGY METHOD 05/07/2024 12:40 PM [facility] NRBC Absolute 0.00 <0.10 K/mcL LAB HEMETOLOGY METHOD 05/07/2024 12:40 PM EST [facility] Blood Venous blood specimen / Unknown Venipuncture / Unknown 05/07/2024 8:42 AM EST 05/07/2024 11:51 AM EST Torrey Kwok MD LAB BLOOD ORDERABLES Final Resul t [facility] [address] [place] [address], documented in this encounter Visit Diagnoses Diagnosis Type 2 diabetes mellitus without complications (CMS/HCC V24, CMS/HCC V28) documented in this encounter Additional Health Concerns Infection Onset Date Last Indicated Resolved Time Respiratory Rule-Out 07/12/2024 07/11/2024 025 11:25 AM EDT documented as of this encounter Care Teams Asbestos Surveyor Relationship Specialty Start Date End Date Torrey Kwok MD [address] [place] [address] [address] [place] [address] PCP - General Geriatric Medicine 04/25/24 documented as of this encounter
--- OUTSIDE RECORDS SUMMARY | 2024-07-26 21:48 | XMS_ITS | Clinical Summary ---
Author Organization [facility] Address [address] [facility] [address] [place] [address] Phone Care Team Providers Care Historic Site Administrator Name Role Phone Monique White MD Primary Care Provider [phone] Allergies Active Allergy Reactions Criticality Noted Date [...] PT (per her report last PT at [facility] in July-August 2020). I have encouraged [...] Unsteadiness on feet 12/09/2019 Weakness 12/09/2019 Immunizations Immunization Administration Dates Next Due Influenza (IM) Preservative [...] Visit [facility] [address] [place] [address] Tu Oliva MD [address] [facility] [address] [place] [phone] Health Maintenance Due Date Last Done Comments Pneumococcal Vaccine: 50+ Years (1 of 2 - PCV) 08/17/1954 Diabetes: Ophthalmology Exam 05/09/2020 Diabetes: Pedal Pulse Checked 05/09/2020 Diabetes: Sensory Foot Exam 05/09/2020 Diabetes: Visual Foot Exam 05/09/2020 Diabetes: Hemoglobin A1C 07/24/2024 04/25/2024 Influenza Vaccine (Season Ended) 2024 01/31/2021, 01/28/2019, 01/07/2018, Additional history exists Hepatitis B Vaccine Aged Out No longe r eligible based on patient's age to complete this topic Insurance [facility] Medicare [facility] Medicare Care Teams Historic Site Administrator Relationship Specialty Start Date End Date Monique White MD [facility] [place] [address] [place], [place] PCP - General Internal Medicine 03/11/21
--- OUTSIDE RECORDS SUMMARY | 2024-07-26 21:48 | XMS_ITS | Encounter Summary ---
Author Organization [facility] Address [address] [place] [address] Care Team Providers Care Suspect Artist Name Role Phone Torrey Kwok MD Primary Care Provider [phone] Encounter Details Date Type Department Care Team (Late st Contact Info) Description 05/31/2024 Lab Requisition [facility] - Main Lab 299 [facility] [place] [address] Torrey Kwok MD [address] [place], [place] [phone] 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, CMS/HCC V28); Essential (primary) hypertension; Heart failure, unspecified (CMS/HCC V24, CMS/HCC V28); 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 V24, CMS/HCC V28) Social [...] with unspecified diabetic retinopathy without macular edema ([facility]) documented in this encounter Results * (ABNORMAL) Basic metabolic panel (06/02/2024 5:33 AM EST) Sodium 133 133 - 145 mmol/L LAB CHEMISTRY METHOD 06/02/2024 1:18 PM [facility] Potassium 3.7 3.5 - 5.5 mmol/L LAB CHEMISTRY METHOD 06/02/2024 1:18 PM [facility] Chloride 94(L) 96 - 110 mmol/L LAB CHEMISTRY METHOD 06/02/2024 1:18 PM [facility] CO2 27 21 - 32 mmol/L LAB CHEMISTRY METHOD 06/02/2024 1:18 PM [facility] Anion Gap 12(H) 3 - 11 LAB CHEMISTRY METHOD 06/02/2024 1:18 PM [facility] Glucose 464(HH) 70 - 100 mg/dL LAB CHEMISTRY METHOD 06/02/2024 1:18 PM [facility] BUN 34(H) 5 - 25 mg/dL LAB CHEMISTRY METHOD 06/02/2024 1:18 PM [facility] Creatinine 1.18(H) 0.50 - 1.10 mg/dL LAB CHEMISTRY METHOD 06/02/2024 1:18 PM [facility] eGFR 45(L) >=60 mL/min/1. 73m2 LAB CHEMISTRY METHOD 06/02/2024 1:18 PM [facility] Comment:Calculation based on the??Chronic Kidney Disease Epidemiology Collaboration (CKD-EPI) equation refit??without adjustment for race. BUN/Creatinine Ratio 28.8 LAB CHEMISTRY METHOD 06/02/2024 1:18 PM [facility] Calcium 9.0 8.5 - 10.5 mg/dL LAB CHEMISTRY METHOD 06/02/2024 1:18 PM [facility] Blood Venous blood specimen / Unknown Venipuncture / Unknown 06/02/2024 5:33 AM EST 06/02/2024 10:52 AM EST Torrey Kwok MD LAB BLOOD ORDERABLES Final Resul t [facility] [address] [place] [address], * (ABNORMAL) Complete blood count (06/02/2024 5:33 AM EST) WBC 9.9 4.8 - 10.8 K/mcL LAB HEMETOLOGY METHOD 06/02/2024 2:00 PM [facility] RBC 3.70(L) 3.80 - 4.80 M/mcL LAB HEMETOLOGY METHOD 06/02/2024 2:00 PM [facility] Hemoglobin 11.5 11.5 - 16.0 g/dL LAB HEMETOLOGY METHOD 06/02/2024 2:00 PM [facility] Hematocrit 37.8 35.0 - 47.0 % LAB HEMETOLOGY METHOD 06/02/2024 2:00 PM [facility] MCV 103.6(H) 79.0 - 98.0 FL LAB HEMETOLOGY METHOD 06/02/2024 2:00 PM [facility] MCH 31.5 27.0 - 32.0 pcg LAB HEMETOLOGY METHOD 06/02/2024 2:00 PM [facility] MCHC 30.4(L) 32.0 - 37.0 g/dL LAB HEMETOLOGY METHOD 06/02/2024 2:00 PM [facility] RDW 18.5(H) 11.0 - 15.0 % LAB HEMETOLOGY METHOD 06/02/2024 2:00 PM [facility] Platelets 365 130 - 400 K/mcL LAB HEMETOLOGY METHOD 06/02/2024 2:00 PM EST [facility] MPV 10.4 7.0 - 11.0 FL LAB HEMETOLOGY METHOD 06/02/2024 2:00 PM EST [facility] NRBC 0.0 <1.0 % LAB HEMETOLOGY METHOD 06/02/2024 2:00 PM EST [facility] NRBC Absolute 0.00 <0.10 K/mcL LAB HEMETOLOGY METHOD 06/02/2024 2:00 PM EST [facility] Blood Venous blood specimen / Unknown Venipuncture / Unknown 06/02/2024 5:33 AM EST 06/02/2024 10:52 AM EST Torrey Kwok MD LAB BLOOD ORDERABLES Final Resul t [facility] [address] [place] [address], documented in this encounter Visit Diagnoses Diagnosis 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, [facility] V28) Essential (primary) hypertension Unspecified essential hypertension Heart failure, unspecified ([facility] V24, [facility] V28) Heart failure, unspecified 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 V24, [facility] V28) documented in this encounter Additional Health Concerns Infection Onset Date Last Indicated Resolved Time Respiratory Rule-Out 07/12/2024 07/11/2024 025 11:25 AM EDT documented as of this encounter Care Teams Suspect Artist Relationship Specialty Start Date End Date Torrey Kwok MD [address] [place] [address] [address] [place] [address] PCP - General Geriatric Medicine 04/25/24 documented as of this encounter
--- OUTSIDE RECORDS SUMMARY | 2024-07-26 21:48 | XMS_ITS | Encounter Summary ---
Author Organization [facility] Address [address] [place] [address] Care Team Providers Care Cannery Tender Engineer Name Role Phone Torrey Kwok MD Primary Care Provider [phone] Encounter Details Date Type Department Care Team (Late st Contact Info) Description 07/26/2024 Lab Requisition [facility] - Main Lab [address] [facility] [employer] [address] Torrey Kwok MD [address] [place], [place] [id number] Type 2 diabetes mellitus with diabetic chronic [...] with macular edema (CMS/HCC V24, CMS/HCC V28) Ordered: 07/26/2024 Basic metabolic panel Lab Routine 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, CMS/HCC V28) Essential (primary) hypertension Heart failure, unspecified (CMS/HCC V24, [facility] V28) 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 ([facility] V24, [facility] V28) Ordered: 07/26/2024 documented as of this encounter Visit Diagnoses Diagnosis Type 2 diabetes mellitus with diabetic chronic kidney disease ([facility] V24, [facility] V28) Essential (primary) hypertension Unspecified essential hypertension Heart failure, unspecified ([facility] V24, [facility] V28) Heart failure, unspecified 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
--- OUTSIDE RECORDS SUMMARY | 2024-07-26 21:48 | XMS_ITS | Encounter Summary ---
Author Organization [facility] Address [address] [place] [address] Care Team Providers Care Writing Manager Name Role Phone Torrey Kwok MD Primary Care Provider Encounter Details Date Type Department Care Team (Late st Contact Info) Description 07/12/2024 Lab Requisition [facility] - Main Lab [address] [place] [address] Torrey Kwok MD [address] [place] [address] Acute cough Social History Tobacco Use Types Packs/Day Years [...] Procedure Name Priority Date/Time Associated Diagnosis Comments [id number], RSV, FLU A AND B QUALITATIVE RT-PCR, LOCAL REFERENCE LAB Routine 07/11/2024 1:00 PM EDT Acute cough documented in this encounter Results * [id number], RSV, Influenza A and B qualitative RT-PCR (07/11/2024 1:00 PM EDT) SARS COV-2 Not Detected Not Detected LAB MOLECULAR DIAGNOSTICS METHOD 07/12/2024 11:25 AM EDT [facility] Comment: Disclaimer: The manner in which this information is used to guide patient care is the responsibility of the healthcare provider. Testing was performed using the [employer] SARS-CoV-2 test. This test has been authorized [...] for Healthcare Providers can be found at: https://www.fda.gov/media/980299/download Fact sheet for Patients can be found at: https://www.fda.gov/media/925527/download Influenza A PCR Not Detected Not Detected LAB MOLECULAR DIAGNOSTICS METHOD 07/12/2024 11:25 AM EDT [facility] Influenza B PCR Not Detected Not Detected LAB MOLECULAR DIAGNOSTICS METHOD 07/12/2024 11:25 AM EDT [facility] RSV PCR Not Detected Not Detected LAB MOLECULAR DIAGNOSTICS METHOD 07/12/2024 11:25 AM EDT [facility] Swab Nasopharyngeal structure / Unknown Non-blood Collection / Unknown 07/11/2024 1:00 PM EDT 07/12/2024 8:28 AM EDT Torrey Kwok MD LAB MICROBIOLOGY - GENERAL ORDER GENET Final Result [facility] [address] [place] [address], documented in this encounter Visit Diagnoses Diagnosis Acute cough documented in this encounter Additional Health Concerns Infection Onset Date Last Indicated Resolved Time Respiratory Rule-Out 07/12/2024 07/11/2024 025 11:25 AM EDT documented as of this encounter Care Teams Writing Manager Relationship Specialty Start Date End Date Torrey Kwok MD [address] [facility] [address] [place] [address] PCP - General Geriatric Medicine 04/25/24 documented as of this encounter
--- OUTSIDE RECORDS SUMMARY | 2024-07-26 21:49 | XMS_ITS | Encounter Summary ---
Author Organization [facility] Address [address] [place] [phone] Care Team Providers Care Administrative Support Technician Name Role Phone Torrey Kwok MD Primary Care Provider [phone] Encounter Details Date Type Department Care Team (Late st Contact Info) Description 06/21/2024 Lab Requisition [facility] - Main Lab 299 [facility] [place] [address] Torrey Kwok MD [address] [place], [place] [id number] Type 2 diabetes mellitus with diabetic chronic [...] (CMS/HCC) Essential (primary) hypertension Heart failure, unspecified ([facility]) documented in this encounter Results * (ABNORMAL) Thyroid stimulating hormone (06/23/2024 5:47 AM EDT) Pathologist [facility] TSH 21.48(H) 0.40 - 4.00 mcIU/mL LAB CHEMISTRY METHOD 06/23/2024 1:59 PM EDT [facility] Blood Venous blood specimen / Unknown Venipuncture / Unknown 06/23/2024 5:47 AM EDT 06/23/2024 11:30 AM EDT Torrey Kwok MD LAB BLOOD ORDERABLES Final Resul t [facility] [address] [place] [address], * (ABNORMAL) Basic metabolic panel (06/23/2024 5:47 AM EDT) Pathologist [facility] Sodium 137 133 - 145 mmol/L LAB CHEMISTRY METHOD 06/23/2024 1:47 PM T [facility] Potassium 3.9 3.5 - 5.5 mmol/L LAB CHEMISTRY METHOD 06/23/2024 1:47 PM T [facility] Chloride 102 96 - 110 mmol/L LAB CHEMISTRY METHOD 06/23/2024 1:47 PM T [facility] CO2 30 21 - 32 mmol/L LAB CHEMISTRY METHOD 06/23/2024 1:47 PM EDT [facility] Anion Gap 5 3 - 11 LAB CHEMISTRY METHOD 06/23/2024 1:47 PM [facility] Glucose 70 70 - 100 mg/dL LAB CHEMISTRY METHOD 06/23/2024 1:47 PM T [facility] BUN 33(H) 5 - 25 mg/dL LAB CHEMISTRY METHOD 06/23/2024 1:47 PM EDT [facility] Creatinine 0.86 0.50 - 1.10 mg/dL LAB CHEMISTRY METHOD 06/23/2024 1:47 PM EDT [facility] eGFR 65 >=60 mL/min/1. 73m2 LAB CHEMISTRY METHOD 06/23/2024 1:47 PM EDT [facility] Comment:Calculation based on the??Chronic Kidney Disease Epidemiology Collaboration (CKD-EPI) equation refit??without adjustment for race. BUN/Creatinine Ratio 38.4 LAB CHEMISTRY METHOD 06/23/2024 1:47 PM EDT [facility] Calcium 8.7 8.5 - 10.5 mg/dL LAB CHEMISTRY METHOD 06/23/2024 1:47 PM EDT [facility] Blood Venous blood specimen / Unknown Venipuncture / Unknown 06/23/2024 5:47 AM EDT 06/23/2024 11:30 AM EDT us Torrey Kwok MD LAB BLOOD ORDERABLES Final Resul t [facility] [address] [place] [address], * (ABNORMAL) Complete blood count (06/23/2024 5:47 AM EDT) WBC 5.9 4.8 - 10.8 K/mcL LAB HEMETOLOGY METHOD 06/23/2024 12:35 PM EDT [facility] RBC 3.00(L) 3.80 - 4.80 M/mcL LAB HEMETOLOGY METHOD 06/23/2024 12:35 PM EDT [facility] Hemoglobin 9.6(L) 11.5 - 16.0 g/dL LAB HEMETOLOGY METHOD 06/23/2024 12:35 PM EDT [facility] Hematocrit 31.2(L) 35.0 - 47.0 % LAB HEMETOLOGY METHOD 06/23/2024 12:35 PM EDT [facility] MCV 103.3(H) 79.0 - 98.0 FL LAB HEMETOLOGY METHOD 06/23/2024 12:35 PM EDT [facility] MCH 31.8 27.0 - 32.0 pcg LAB HEMETOLOGY METHOD 06/23/2024 12:35 PM EDT [facility] MCHC 30.8(L) 32.0 - 37.0 g/dL LAB HEMETOLOGY METHOD 06/23/2024 12:35 PM EDT [facility] RDW 18.7(H) 11.0 - 15.0 % LAB HEMETOLOGY METHOD 06/23/2024 12:35 PM EDT [facility] Platelets 244 130 - 400 K/mcL LAB HEMETOLOGY METHOD 06/23/2024 12:35 PM EDT [facility] MPV 11.0 7.0 - 11.0 FL LAB HEMETOLOGY METHOD 06/23/2024 12:35 PM EDT [facility] NRBC 0.0 <1.0 % LAB HEMETOLOGY METHOD 06/23/2024 12:35 PM EDT [facility] NRBC Absolute 0.00 <0.10 K/mcL LAB HEMETOLOGY METHOD 06/23/2024 12:35 PM EDT [facility] Blood Venous blood specimen / Unknown Venipuncture / Unknown 06/23/2024 5:47 AM EDT 06/23/2024 11:30 AM EDT us Torrey Kwok MD LAB BLOOD ORDERABLES Final Resul t [facility] [address] [place] [address], documented in this encounter Visit Diagnoses Diagnosis 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, CMS/HCC V28) Essential (primary) hypertension Unspecified essential hypertension Heart failure, unspecified ([facility] V24, [facility] V28) Heart failure, unspecified documented in this encounter Additional Health Concerns Infection Onset Date Last Indicated Resolved Time Respiratory Rule-Out 07/12/2024 07/11/2024 025 11:25 AM EDT documented as of this encounter Care Teams Administrative Support Technician Relationship Specialty Start Date End Date Torrey Kwok MD [address] [place] [address] [address] [place] [address] PCP - General Geriatric Medicine 04/25/24 documented as of this encounter
--- OUTSIDE RECORDS SUMMARY | 2024-07-26 21:49 | XMS_ITS | Patient Health Record ---
Author Organization [facility] Address [address] [place] [address] Care Team Providers Care Registrar Museum Name Role Phone Po Monique HODGE Primary [...] Active Omeprazole 20 TAKE 1 CAPSULE BY [facility] TWICE DAILY for 90 days Active Immunizations Vaccine Route Administration Date Status Comme nts Influenza Unknown 02/08/2016 Administered Influenza Unknown 02/07/2018 Administered Problems Problem Type SNOMED Code ICD Code Onset Dates Problem Status W/U Status Risk Notes Problem 843004523 Gastro-esophagea l reflux disease without esophagitis (K21.9) Active confirmed Problem 84206570 Dysphagia, unspecified type (R13.10) Active confirmed Problem 292779970 Abnormal UGI series (R93.3) Active confirmed Problem 47641446 Hypertension, unspecified type (I10) Active confirmed Plan Of Treatment Pending Test Test Name Order Date XR GI SERIES 07/20/2016 Insurance Providers Payer Name Payer Address Payer Phone Subscriber Number Group Number Insured Name Patient Relationship to Insured Coverage Start Date Coverage End Date MEDICARE OF [place] [address] [place] [address] [id number] CHARLY SCHWARTZ Self - patient is the insured [employer] ATT[employer] CLAIMS [address] [place] [phone] [id number] CHARLY SCHWARTZ Self - patient is the insured Medical (General) History Medical History History ICD Code colonoscopy 03/25/2004 diabetes mellitus osteoporosis Hypothyroidism elevated cholesterol hypertension diverticulosis internal hemorrhoids congestive heart failure urinary incontinence-mild Surgical History Surgery Date(Month/Year) cholecystectomy knee surgery section left hip replacement right knee replacement cardioversion 12/2015
--- OUTSIDE RECORDS SUMMARY | 2024-07-26 21:49 | XMS_ITS ---
Author Organization [facility] Address [address] [place] [address] Care Team Providers Care Ware Finisher Name Role Phone Monique White Primary Care Provider Arturo Brown [phone] REASON FOR VISIT Cancel Encounters Encounter Location Date Provider Diagnosis [address] [address] 05/05/2024 Arturo Simon Plan Of Treatment Next Appt Details Provider Name:Arturo Simon , 08/15/2024 10:15:00 AM, [address] [place], [address], Progress Notes * Gerri SCHWARTZ RDOB:[birth year] (88 yo F)Acc No.[id number]:05/05/2024 Patient:?Gerri SCHWARTZ :1935???Age:88 Y???Sex:Female Address:[place], [address] * true * Date:? Generated for Printi dontae/Fabakari/eTransmitting on:?07/26/2024 09:48 PM EDT
--- OUTSIDE RECORDS SUMMARY | 2024-07-26 21:49 | XMS_ITS | Encounter Summary ---
Author Organization [facility] Address [address] [place] [address] Care Team Providers Care Sugar Grinder Name Role Phone Torrey Kwok MD Primary Care Provider [phone] Encounter Details Date Type Department Care Team (Late st Contact Info) Description 07/05/2024 Lab Requisition [facility] - Main Lab [address] [facility] [place] [address] Torrey Kwok MD [address] [place], [place] [id number] Type 2 diabetes mellitus with diabetic chronic [...] (CMS/HCC) Essential (primary) hypertension Heart failure, unspecified ([facility]) 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 ([facility]) documented in this encounter Results * (ABNORMAL) [...] mg/dL LAB [facility]STR[facility] Blood Venous blood specimen / Unknown Venipuncture / Unknown 07/07/2024 5:35 AM EDT 07/07/2024 10:37 AM EDT Torrey Kwok MD LAB BLOOD ORDERABLES Final Resul t [facility] [address] [place] [address], * (ABNORMAL) Complete blood count (07/07/2024 5:35 AM EDT) WBC 6.3 4.8 - 10.8 K/mcL LAB HEMETOLOGY METHOD 07/07/2024 11:[facility] RBC 2.90(L) 3.80 - 4.80 M/mcL LAB HEMETOLOGY METHOD 07/07/2024 11:43 AM [facility] Hemoglobin 9.5(L) 11.5 - 16.0 g/dL LAB HEMETOLOGY METHOD 07/07/2024 11:43 AM [facility] Hematocrit 30.2(L) 35.0 - 47.0 % LAB HEMETOLOGY METHOD 07/07/2024 11:43 AM [facility] MCV 103.4(H) 79.0 - 98.0 FL LAB HEMETOLOGY METHOD 07/07/2024 11:43 AM T [facility] MCH 32.5(H) 27.0 - 32.0 pcg LAB HEMETOLOGY METHOD 07/07/2024 11:43 AM [facility] MCHC 31.5(L) 32.0 - 37.0 g/dL LAB HEMETOLOGY METHOD 07/07/2024 11:43 AM [facility] RDW 18.3(H) 11.0 - 15.0 % LAB HEMETOLOGY METHOD 07/07/2024 11:43 AM EDT [facility] Platelets 312 130 - 400 K/mcL LAB HEMETOLOGY METHOD 07/07/2024 11:43 AM EDT [facility] MPV 10.8 7.0 - 11.0 FL LAB HEMETOLOGY METHOD 07/07/2024 11:43 AM EDT [facility] NRBC 0.0 <1.0 % LAB HEMETOLOGY METHOD 07/07/2024 11:43 AM EDT [facility] NRBC Absolute 0.00 <0.10 K/mcL LAB HEMETOLOGY METHOD 07/07/2024 11:43 AM EDT [facility] Blood Venous blood specimen / Unknown Venipuncture / Unknown 07/07/2024 5:35 AM EDT 07/07/2024 10:37 AM EDT Torrey Kwok MD LAB BLOOD ORDERABLES Final Resul t [facility] [address] [place] [address], documented in this encounter Visit Diagnoses Diagnosis 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, CMS/HCC V28) Essential (primary) hypertension Unspecified essential hypertension Heart failure, unspecified ([facility]/HCC V24, [facility]/HCC V28) Heart failure, unspecified 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
--- OUTSIDE RECORDS SUMMARY | 2024-07-26 21:49 | XMS_ITS ---
Author Organization [facility] Address [address] [place] [address] Care Team Providers Care Label Designer Name Role Phone Monique White Primary Care Provider Arturo Brown Unavailable [phone] Encounters Encounter Location Date Provider Diagnosis [address] [address] 05/06/2024 Arturo Simon Plan Of Treatment Next Appt Details Provider Name:Arturo Simon , 08/15/2024 10:15:00 AM, [address] [place], [address], Progress Notes * Gerri SCHWARTZ RDOB:[birth year] (88 yo F)Acc No.[id number]:05/06/2024 Progress Note Patient:?Gerri SCHWARTZ R Provider:?Arturo Simon DPM :1935???Age:88 Y???Sex:Female D ate:05/06/2024 Address:[id number] Pcp:Monique White Subjective: * Chief Complaints: * ??? * Medical History:? Objective: * Vitals:? Assessment: Plan: * Treatment: * Images: * The named appointment provid er may or may not be the originator of this progress note, and it is not deemed complete until electronically signed by the appointment provider. Sign off status: Pending * Provider:?Arturo Simon DPM Date:?2024 Generated for Awilda diggs/Lee/Nilay on:?07/26/2024 09:48 PM EDT
--- OUTSIDE RECORDS SUMMARY | 2024-07-26 21:49 | XMS_ITS | Encounter Summary ---
Author Organization [facility] Address [address] [place] [address] Care Team Providers Care Commanding Officer Garage Name Role Phone Torrey Kwok MD Primary Care Provider Encounter Details Date Type Department Care Team (Late st Contact Info) Description 07/11/2024 Lab Requisition [facility] - Main Lab [address] [facility] [place] [address] Torrey Kwok MD [address] [place] [address] Chronic kidney disease, stage 3 unspecified (CMS/HCC [...] LAB CHEMISTRY METHOD 07/11/2024 12:06 PM EDT [facility] Potassium 4.3 3.5 - 5.5 mmol/L LAB CHEMISTRY METHOD 07/11/2024 12:06 PM EDT [facility] Chloride 101 96 - 110 mmol/L LAB CHEMISTRY METHOD 07/11/2024 12:06 PM [facility] CO2 26 21 - 32 mmol/L LAB CHEMISTRY METHOD 07/11/2024 12:06 PM [facility] Anion Gap 8 3 - 11 LAB CHEMISTRY METHOD 07/11/2024 12:06 PM [facility] Glucose 216(H) 70 - 100 mg/dL LAB CHEMISTRY METHOD 07/11/2024 12:06 PM [facility] BUN 45(H) 5 - 25 mg/dL LAB CHEMISTRY METHOD 07/11/2024 12:06 PM [facility] Creatinine 1.38(H) 0.50 - 1.10 mg/dL LAB CHEMISTRY METHOD 07/11/2024 12:06 PM [facility] eGFR 37(L) >=60 mL/min/1. 73m2 LAB CHEMISTRY METHOD 07/11/2024 12:06 PM [facility] Comment:Calculation based on the??Chronic Kidney Disease Epidemiology Collaboration (CKD-EPI) equation refit??without adjustment for race. BUN/Creatinine Ratio 32.6 LAB CHEMISTRY METHOD 07/11/2024 12:06 PM [facility] Calcium 8.8 8.5 - 10.5 mg/dL LAB CHEMISTRY METHOD 07/11/2024 12:06 PM [facility] Blood Venous blood specimen / Unknown Venipuncture / Unknown 07/11/2024 6:58 AM EDT 07/11/2024 10:53 AM EDT us Torrey Kwok MD LAB BLOOD ORDERABLES Final Resul t [facility] [address] [place] [address], documented in this encounter Visit Diagnoses Diagnosis Chronic kidney disease, stage 3 unspecified (CMS/HCC V24, CMS/[facility] V28) documented in this encounter Additional Health Concerns Infection Onset Date Last Indicated Resolved Time Respiratory Rule-Out 07/12/2024 07/11/2024 025 11:25 AM EDT documented as of this encounter Care Teams Commanding Officer Garage Relationship Specialty Start Date End Date Torrey Kwok MD [address] [place] [address] [address] [place] [address] PCP - General Geriatric Medicine 04/25/24 documented as of this encounter
--- NOTE | 2024-07-26 21:53 | PC.NURSE ---
Pt. changed in new gown, purewick in place and new sheets and linen. Daughter at bedside, updated her on plan.
[2024-07-26 22:08] LABS: Alanine Aminotransferase 31 U/L (0-31); Albumin Level 3.5 g/dL (3.5-5.0); Alkaline Phosphatase 143 U/L (39-117); Anion Gap 12 (12-20); Aspartate Amino Transferase 29 U/L (5-31); Bilirubin Total 0.3 mg/dL (0.0-1.0); Blood Urea Nitrogen 27 mg/dL (9-16); Calcium 8.7 mg/dL (8.4-10.2); Carbon Dioxide 29 mmol/L (22-29); Chloride 101 mmol/L (96-108); Creatinine Clr Calc Pharmacy 30.9; Estimated Glomerular Filt Rate 42; Glucose Random 255 mg/dL (60-115); Potassium 3.9 mmol/L (3.3-5.1); Sodium 138 mmol/L (135-145); Total Protein 6.3 g/dL (6.5-8.0)
[2024-07-26 22:53] VITALS: BP 171/64; PULSE 73; RESP 18; O2SAT 94
--- NOTE | 2024-07-26 23:01 | PC.NURSE ---
Report given at this time. Awaiting results.
[2024-07-26 23:38] LABS: B Type Natriuretic Peptide 326 pg/mL (<100)
--- NOTE | 2024-07-27 00:43 | PC.NURSE ---
report was provided to edis victor from [facility]. He reports that he is not the patient's direct nurse however because this RN was unable to contact the pt's direct floor he would take the report
[2024-07-27 00:46] VITALS: BP 171/64; PULSE 73; RESP 18; TEMP -17.7; TEMP 0; O2SAT 94
== END 2024-07-26 23:55 | disposition skilled nursing facility (03) ==
PROVIDERS: Emergency Provider Internal Medicine; PCP Family Medicine Geriatric Medicine
DX: I11.0 Hypertensive heart disease with heart failure (principal); I50.32 Chronic diastolic (congestive) heart failure; I48.91 Unspecified atrial fibrillation; F03.90 Unspecified dementia, unspecified severity, without behavioral disturbance, psychotic disturbance, mood disturbance, and anxiety; E03.9 Hypothyroidism, unspecified; Z79.899 Other long term (current) drug therapy; Z91.81 History of falling
CPT/HCPCS: 36415; 70450; 71045; 72125; 80053; 83880; 85025; 93005; 99284; 99285

== ENCOUNTER → 2024-07-26 21:03 | Outpatient (BNV) | payer MEDICARE, SELFPAY | PROVIDERS: Emergency Provider Internal Medicine; PCP Family Medicine Geriatric Medicine; Visit Provider Internal Medicine Cardiovascular Disease | DX: I48.91 Unspecified atrial fibrillation (principal); I25.2 Old myocardial infarction | CPT/HCPCS: 93010 ==

== ENCOUNTER → 2024-07-26 21:04 | Outpatient (BNV) | payer MEDICARE, SELFPAY | PROVIDERS: Emergency Provider Internal Medicine; PCP Family Medicine Geriatric Medicine; Visit Provider Radiology Neuroradiology | DX: Z03.89 Encounter for observation for other suspected diseases and conditions ruled out (principal); R05.9 Cough, unspecified | CPT/HCPCS: 70450; 71045; 72125 ==

== ENCOUNTER 2024-09-22 11:27 | Inpatient (IN) | payer MEDICARE, SELFPAY ==
[2024-09-22] VITALS (9 sets, daily range): BP systolic 95–166; BP diastolic 35–70; PULSE 70–105; RESP 12–16; TEMP 35.7–36.7; O2SAT 93–98; BMI 25.1
--- NOTE | ~2024-09-22 | XR_ITS ---
EXAMINATION: XR CHEST CLINICAL INFORMATION: pain COMPARISON: July 26, 2024. TECHNIQUE: Frontal view of the chest was obtained. FINDINGS: Haziness in the right lower hemithorax. Mild prominence of interstitial markings in the pelvic regions. Patchy opacity left lower hemithorax. No pneumothorax. Cardiomediastinal silhouette size is large, unchanged. Calcified plaque thoracic aorta. Multilevel thoracic spondylosis. Degenerative changes in the left shoulder. Osteopenia versus osteoporosis. Patient's large body habitus. XR/XR chest 1V IMPRESSION: Mild interstitial lung edema likely small right-sided pleural effusion. Superimposed acute inflammatory process cannot be excluded. Cardiomegaly versus pericardial effusion. Electronically signed by: Jose L Cisneros MD 09/22/2024 12:56 PM EDT
--- NOTE | 2024-09-22 11:43 | ECG_ITS ---
Test Reason : AMS Blood Pressure : */* mmHG Vent. Rate : 79 BPM Atrial Rate : * BPM P-R Int : * ms QRS Dur : 118 ms QT Int : 466 ms P-R-T Axes : * -57 39 degrees QTcB Int : 534 ms Atrial fibrillation with a competing junctional pacemaker Left axis deviation Left ventricular hypertrophy with QRS widening ( R in aVL , Paxton product ) Possible Lateral infarct (cited on or before 11-Jul-2024) Inferior infarct , age undetermined Prolonged QT Abnormal ECG When compared with ECG of 26-Jul-2024 21:22, Questionable change in initial forces of Lateral leads Non-specific change in ST segment in Lateral leads QT has lengthened Referred By: Maggie Peters Electronically Signed By: Ulises Talavera
--- NOTE | 2024-09-22 12:25 | ED.AMS ---
HPI - Altered Mental Status General Chief Complaint: Altered Mental Status Stated Complaint: UNRESPONSIVE FROM SNF,VOMITED,BP 60/50 Time Seen by Provider: 09/22/24 12:18 Source: family ( daughter), EMS, RN notes reviewed and old records reviewed Mode of arrival: EMS Limitations: altered mental status History of Present Illness ED Provider: DR. Jeffries HPI narrative: 89-year-old female brought in by ambulance from skilled nursing with past medical history significant for dementia, AFib on amiodarone and Xarelto, T2 DM, HLD, CKD, DNR, DNI. Patient at baseline awake and alert x1 noticed to be lethargic patient had breakfast this morning then patient vomited with high concern of aspiration, patient currently is on Cipro for UTI. patient is unable to provide history. Related Data Home Medications ?Medication ?Instructions ?Recorded ?Confirmed travoprost 0.004 % eye drops 1 drp ophthalmic (eye) BEDTIME 06/01/20 07/11/24 acetaminophen 500 mg tablet 1,000 mg PO TID PRN Pain 08/17/21 07/11/24 cholecalciferol (vitamin D3) 25 25 mcg PO DAILY 01/01/23 07/11/24 mcg (1,000 unit) capsule insulin lispro 100 unit/mL 1 sliding scale dose subcut TIDAC 11/17/23 07/11/24 subcutaneous pen (Humalog KwikPen (U-100) Insulin) calcitriol 0.25 mcg capsule 0.25 mcg PO Q48H 04/20/24 07/11/24 rivaroxaban 15 mg tablet (Xarelto) 15 mg PO DAILY@1700 04/20/24 07/11/24 melatonin 5 mg capsule 5 mg PO BEDTIME PRN insomnia 05/05/24 07/11/24 gabapentin 300 mg capsule 100 mg PO BID 07/09/24 07/11/24 bisacodyl 10 mg rectal suppository 10 mg IL DAILY PRN Constipation 07/12/24 07/12/24 furosemide 20 mg tablet 20 mg PO DAILY PRN 3lb+ weight gain 07/12/24 07/12/24 levothyroxine 150 mcg tablet 150 mcg PO DAILY@0600 07/12/24 07/12/24 magnesium hydroxide 400 mg/5 mL 30 ml PO DAILY PRN Constipation 07/12/24 07/12/24 oral suspension metoprolol tartrate 25 mg tablet 25 mg PO BEDTIME PRN HTN 07/12/24 07/12/24 sennosides 8.6 mg-docusate sodium 1 tab-cap PO BID 07/12/24 07/12/24 50 mg tablet (Senna with Docusate Sodium) sodium phosphates 19 gram-7 118 ml IL DAILY PRN Constipation 07/12/24 07/12/24 gram/118 mL enema (Fleet Enema) vit C 250 mg-vit E 90 mg-zinc 40 1 tab PO DAILY 07/12/24 07/12/24 mg-copper 1 [id number] capsule (PreserVision AREDS-2) Previous Rx's ?Medication ?Instructions ?Recorded flash glucose sensor (FreeStyle #1 ea 05/23/23 Madeline 14 Day Sensor kit) flash glucose sensor (FreeStyle #6 ea 05/23/23 Madeline 14 Day Sensor kit) pen needle, diabetic 32 gauge x #400 ea 09/17/23 (BD Eveline 2nd Gen Pen Needle) amiodarone 200 mg tablet 200 mg PO DAILY 90 days #90 tabs 10/29/23 lactulose 10 gram/15 mL oral 30 ml PO DAILY PRN for 02/01/24 solution constipation #946 mL simvastatin 10 mg tablet 10 mg PO BEDTIME #90 tabs 06/16/24 cefuroxime axetil 250 mg tablet 500 mg (2 x 250 mg) PO BID #10 tabs 07/14/24 doxycycline monohydrate 100 mg 100 mg PO Q12H #10 caps 07/14/24 capsule furosemide 40 mg tablet 40 mg PO DAILY #90 tabs 07/14/24 insulin glargine U-300 conc 300 10 unit (0.0333 mL) subcut DAILY 07/14/24 unit/mL (1.5 mL) subcutaneous pen #4.5 mL (Touty SoloStar U-300 Insulin) quetiapine 25 mg tablet 25 mg PO BID PRN 07/14/24 Anxiety/Restlessness #60 tabs metoprolol succinate 100 mg 100 mg PO DAILY 90 days #90 tabs 07/22/24 tablet,extended release 24 hr furosemide 20 mg tablet See Rx Instructions .Route 07/26/24 .COMPLEX #5 tabs Allergies Allergy/AdvReac Type Severity Reaction Status Date / Time codeine Allergy Intermediate TACHYCARDIA Verified 09/22/24 11:46 nitrofurantoin [Macrobid] Allergy Unknown confusion Verified 09/22/24 11:46 pravastatin Allergy Unknown Unknown Verified 09/22/24 11:46 rosuvastatin [Crestor] Allergy Unknown Unknown Verified 09/22/24 11:46 Sulfa (Sulfonamide Allergy Unknown unknown Verified 09/22/24 11:46 Antibiotics) sulfamethoxazole Allergy Unknown Unknown Verified 09/22/24 11:46 [From Bactrim] trimethoprim [From Bactrim] Allergy Unknown Unknown Verified 09/22/24 11:46 amlodipine AdvReac Intermediate leg Verified 09/22/24 11:46 swelling digoxin AdvReac Intermediate Confusion Verified 09/22/24 11:46 Review of Systems Review of Systems: Yes Unobtainable due to mental status PMFSH Past Medical History Medical History Hypothyroidism Constipation Transaminitis Congestive heart failure Ulcer of right ankle Recurrent UTI Urinary tract infection with fever Persistent atrial fibrillation Left thigh pain Abdominal mass, LUQ (left upper quadrant) Iliotibial band syndrome of left side UTI (urinary tract infection) Herpes zoster Orthostatic hypotension Acute hyponatremia Weakness COVID-19 Breast asymmetry Atrial fibrillation with rapid ventricular response Hyperkalemia Essential hypertension Atherosclerotic cardiovascular disease Chronic heart failure with preserved ejection fraction (HFpEF) Iliotibial band syndrome of right side Disc degeneration, lumbar Cognitive dysfunction 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 Atrial fibrillation Osteopenia Hypothyroid Spinal stenosis of lumbar region Degenerative disc disease, lumbar Type 2 diabetes mellitus with hyperglycemia Surgical History History of removal of cyst History of appendectomy History of eye surgery History of cataract surgery History of cholecystectomy History of section History of knee replacement History of hip replacement Family History Family History Father CVD (cardiovascular disease) Mother CVD (cardiovascular disease) Stroke Social History Social History Household Members: Unknown / Unable to assess Household Members Other:: son comes 3 days a week, daughter lives 5 minutes away visits frequently Housing: [facility] Alcohol intake: never 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 Patient Tobacco Use Status: Former Tobacco user Tobacco use type: Cigarette Years Smoked: <1 e-Cigarette/Vaping Use: Former Use Second Hand Smoke Exposure: No Advance Directives: Yes Advance Directives on File: Yes Advance Directives Date on File: 08/29/21 Do you have a plan to hurt others: No Plan service: No Current occupational status: retired Cognitive needs: Yes (Walker) Hearing needs: No Vision needs: Yes Physical Exam ED Vital Signs: Vital Signs - 24 hr 09/22/24 11:45 09/22/24 13:01 Temperature 97.0 F Pulse Rate 73 83 Respiratory Rate 12 12 Blood Pressure 141/43 H 100/64 Pulse Oximetry 98 94 Oxygen Delivery Method Room Air Room Air BMI result Body Mass Index 25.1 Vital signs have been reviewed and appear to be correct. Blood pressure elevated. Heart rate normal. Respiratory rate normal. Temperature normal. Oxygen saturation normal. Appearance: lethargic, arouses to painful stimuli. No acute distress. Head: Normal external exam. Normocephalic. Atraumatic. No Moon signs noted. No raccoon eyes noted Eyes: PERRLA. EOMI. Conjunctiva and sclera normal. Eyelids normal. ENT: TM's Normal. Pharynx normal. Uvula midline. Moist mucous membranes. No trismus noted. No drooling noted. No muffled voice noted. Neck: Normal inspection. Neck supple. FROM. No adenopathy. Thyroid Normal. No meningeal signs. No neck mass noted. CVS: Normal heart rate and rhythm. Heart sound normal. No murmurs noted. Pulses normal throughout. Respiratory: No respiratory distress. Painless inspiration. Breath sounds normal. No wheezes/rales/rhonchi noted. Chest nontender. No accessory muscle usage noted or decreased air movement noted. Abdomen: Soft and nontender. Bowel sounds normal in all 4 quadrants. No distention noted. No organomegaly noted. No visible injury noted. Back: No CVA tenderness. Full range of motion noted. Skin: Skin warm and dry. Normal skin color. Normal skin turgor. No rashes/lesions/lacerations noted. Extremities: No lower extremity edema. Extremities exhibit normal range of motion. Extremities nontender. Neuro: lethargic disoriented, only responds to painful stimuli, patient disregard examiner. Course Reevaluation(s) Reevaluation #1: patient now is awake, able to have conversation with her daughter, patient as per daughter is at her baseline. Patient at this point do not meet SIRS criteria lactic acidosis is secondary to CHF and not infection. Possible aspiration pneumonia patient received Zosyn. Total of only 250 cc of normal saline was administrated, fluid restriction secondary to CHF. UTI continue with Zosyn. Will admit for further evaluation. Time: 14:31 Medications Administered Discontinued Medications Generic Name Dose Route Start Last Admin Trade Name Freq PRN Reason Stop Dose Admin Piperacillin Sod/Tazobactam 50 mls @ 100 mls/hr 09/22/24 12:31 09/22/24 13:19 Sod 3.375 gm/ Sodium Chloride IV 09/22/24 13:00 Infused ONCE ONE Infusion Sodium Chloride 1,000 mls @ 250 mls/hr 09/22/24 12:33 09/22/24 12:54 Ns IV 09/22/24 16:32 Not Given .Q4H ONE Sodium Chloride 250 mls @ 250 mls/hr 09/22/24 12:53 09/22/24 13:54 Ns IV 09/22/24 13:32 Infused .Q1H ONE Infusion Medical Decision Making Differential Diagnosis Differential Diagnoses: The differential diagnosis associated with the presentation includes ( Aspiration pneumonia, CHF, ACS, dehydration, electrolyte derangement, UTI, severe anemia, metabolic encephalopathy.) Admission/Observation Consideration of admission/observation: Escalation of care including admission/observation considered Consult Healthcare Provider Management of the patient was discussed with: Hospitalist ( Dr. Sloan) Lab Data MDM Lab Attestation statement: I reviewed the patient's lab results. 09/22/24 12:46 09/22/24 12:46 Labs: Lab Results 09/22/24 09/22/24 09/22/24 Range/Units 12:46 12:52 12:54 WBC 7.6 (4.8-10.8) X10*3/uL RBC 3.97 L D (4.20-5.50) X10*6/uL Hgb 12.5 D (12.0-16.0) g/dl Hct 39.1 D (37.0-47.0) % MCV 98.5 H (80.0-98.0) fL MCH 31.5 (27.0-33.0) pg MCHC 32.0 (31.0-35.0) g/dl RDW 17.3 H (11.0-16.0) % Plt Count 362 D (160-400) X10*3/uL MPV 10.3 (9.4-12.3) fL Immature Gran % (Auto) 0.7 H (0.0-0.4) % Neut % (Auto) 80.0 H (45-73) % Lymph % (Auto) 8.4 L (20-40) % [place] % (Auto) 7.6 (2-11) % Eos % (Auto) 2.4 (0-4) % Baso % (Auto) 0.9 (0-2) % Lymph # (Auto) 0.6 L (1.2-4.9) X10*3/uL [place] # (Auto) 0.6 (0.1-1.2) X10*3/uL Eos # (Auto) 0.2 (0.0-0.4) X10*3/uL Baso # (Auto) 0.1 (0.0-0.2) X10*3/uL Abs Immat Gran (auto) 0.05 H (0.00-0.03) X10*3/uL Absolute Neuts (auto) 6.1 (2.0-8.3) x10*3/uL Absolute Nucleated RBC 0.000 (0.0-0.012) X10*3/uL Nucleated RBC % (auto) 0.0 (0.0-0.2) /100WBC VBG pH 7.48 H (7.32-7.43) VBG pCO2 27 mmHg VBG pO2 95 mmHg VBG HCO3 20 L (22-26) mmol/L VBG O2 Saturation 99.0 % VBG Base Excess -1.1 mmol/L Sodium 133 L (135-145) mmol/L Potassium 4.4 (3.3-5.1) mmol/L Chloride 97 (96-108) mmol/L Carbon Dioxide 21 L (22-29) mmol/L Anion Gap 19 (12-20) BUN 49 H (9-16) mg/dL Creatinine 1.86 H (0.5-1.4) mg/dL Estim Creat Clear Calc 18.8 Estimated GFR 26 Random Glucose 326 H (60-115) mg/dL Lactic Acid 4.9 H* (0.5-2.0) mmol/L Calcium 8.7 (8.4-10.2) mg/dL Magnesium 2.5 (1.6-2.6) mg/dL Total Bilirubin 0.5 (0.0-1.0) mg/dL AST 28 (5-31) U/L ALT 18 (0-31) U/L Alkaline Phosphatase 134 H (39-117) U/L Troponin I High Sens 6.7 (<3.5-17.0) ng/L B-Natriuretic Peptide 317 H (<100) pg/mL Total Protein 6.8 (6.5-8.0) g/dL Albumin 3.6 (3.5-5.0) g/dL Urine Color Urine Appearance Urine pH (5.0-9.0) Ur Specific [place] (1.005-1.025) Urine Protein (Neg-Trace) mg/dL Urine Glucose (UA) (Negative) mg/dL Urine Ketones (Negative) mg/dL Urine Blood (Negative) Urine Nitrite (Negative) Ur Leukocyte Esterase (Negative) Urine RBC (0-2) /HPF Urine WBC (0-5) /HPF Ur Squamous Epith Cells (0-2) /HPF Urine Bacteria (None Seen) Hyaline Casts (0-2) /LPF 09/22/24 Range/Units 14:04 WBC (4.8-10.8) X10*3/uL RBC (4.20-5.50) X10*6/uL Hgb (12.0-16.0) g/dl Hct (37.0-47.0) % MCV (80.0-98.0) fL MCH (27.0-33.0) pg MCHC (31.0-35.0) g/dl RDW (11.0-16.0) % Plt Count (160-400) X10*3/uL MPV (9.4-12.3) fL Immature Gran % (Auto) (0.0-0.4) % Neut % (Auto) (45-73) % Lymph % (Auto) (20-40) % [place] % (Auto) (2-11) % Eos % (Auto) (0-4) % Baso % (Auto) (0-2) % Lymph # (Auto) (1.2-4.9) X10*3/uL [place] # (Auto) (0.1-1.2) X10*3/uL Eos # (Auto) (0.0-0.4) X10*3/uL Baso # (Auto) (0.0-0.2) X10*3/uL Abs Immat Gran (auto) (0.00-0.03) X10*3/uL Absolute Neuts (auto) (2.0-8.3) x10*3/uL Absolute Nucleated RBC (0.0-0.012) X10*3/uL Nucleated RBC % (auto) (0.0-0.2) /100WBC VBG pH (7.32-7.43) VBG pCO2 mmHg VBG pO2 mmHg VBG HCO3 (22-26) mmol/L VBG O2 Saturation % VBG Base Excess mmol/L Sodium (135-145) mmol/L Potassium (3.3-5.1) mmol/L Chloride (96-108) mmol/L Carbon Dioxide (22-29) mmol/L Anion Gap (12-20) BUN (9-16) mg/dL Creatinine (0.5-1.4) mg/dL Estim Creat Clear Calc Estimated GFR Random Glucose (60-115) mg/dL Lactic Acid (0.5-2.0) mmol/L Calcium (8.4-10.2) mg/dL Magnesium (1.6-2.6) mg/dL Total Bilirubin (0.0-1.0) mg/dL AST (5-31) U/L ALT (0-31) U/L Alkaline Phosphatase (39-117) U/L Troponin I High Sens (<3.5-17.0) ng/L B-Natriuretic Peptide (<100) pg/mL Total Protein (6.5-8.0) g/dL Albumin (3.5-5.0) g/dL Urine Color Yellow Urine Appearance Clear Urine pH 5.0 (5.0-9.0) Ur Specific [place] 1.020 (1.005-1.025) Urine Protein Trace (Neg-Trace) mg/dL Urine Glucose (UA) >=1000 H (Negative) mg/dL Urine Ketones Trace (Negative) mg/dL Urine Blood Small (1+) H (Negative) Urine Nitrite Negative (Negative) Ur Leukocyte Esterase Small (1+) H (Negative) Urine RBC 6-10 H (0-2) /HPF Urine WBC 21-50 H (0-5) /HPF Ur Squamous Epith Cells 3-5 (0-2) /HPF Urine Bacteria None Seen (None Seen) Hyaline Casts 0-2 (0-2) /LPF Independent Interpretation I performed an independent interpretation of an: Plain X-Ray ( chest:Mild interstitial lung edema likely small right-sided pleural effusion. Superimposed acute inflammatory process cannot be excluded. Cardiomegaly versus pericardial effusion.) Radiology Impression Discussion of test interpretation with radiology: I have reviewed the radiologist's reading. Critical Care Time Critical Care Time Critical Care Time: Yes Total Critical Care Time: 60 Attestation: The patient was critically ill with a high probability of imminent or life-threatening deterioration. I spent greater than 30 minutes of discontinuous time evaluating the patient, delivering critical care at the bedside, discussing evaluating data with consultants. Critical care time does not include time spent performing separately billable procedures or teaching. Time spent performing critical care was 60 minutes. Discharge Plan Discharge Clinical Impression: Acidosis, lactic, Congestive heart failure, Acute UTI Patient Disposition: Admitted As Inpatient Print Language: Moroccan
[2024-09-22] MEDS: Piperacillin Sodium/Tazobactam 3.375 GM in 0.9 % Sodium Chloride 50 ML IV ×2 (12:49→19:52)
[2024-09-22 12:54] LABS: MANUAL DIFF FLAG NO
[2024-09-22] MEDS: 0.9 % Sodium Chloride 250 ML IV (12:54)
[2024-09-22 12:57] LABS: Basophils Absolute Auto 0.1 X10*3/uL (0.0-0.2); Basophils Percent Auto 0.9 % (0-2); Eosinophils Absolute Auto 0.2 X10*3/uL (0.0-0.4); Eosinophils Percent Auto 2.4 % (0-4); Hematocrit 39.1 % (37.0-47.0); Hemoglobin 12.5 g/dl (12.0-16.0); Imm Gran Abs Auto 0.05 X10*3/uL (0.00-0.03); Imm Gran Pct Auto 0.7 % (0.0-0.4); Lymphocytes Absolute Auto 0.6 X10*3/uL (1.2-4.9); Lymphocytes Percent Auto 8.4 % (20-40); Mean Corpuscular Hemoglobin 31.5 pg (27.0-33.0); Mean Corpuscular Volume 98.5 fL (80.0-98.0); Mean Platelet Volume 10.3 fL (9.4-12.3); Monocytes Absolute Auto 0.6 X10*3/uL (0.1-1.2); Monocytes Percent Auto 7.6 % (2-11); Neutrophils Absolute Auto 6.1 x10*3/uL (2.0-8.3); Platelet Count 362 X10*3/uL (160-400); Red Blood Count 3.97 X10*6/uL (4.20-5.50); Red Cell Distribution Width 17.3 % (11.0-16.0); White Blood Count 7.6 X10*3/uL (4.8-10.8)
--- NOTE | 2024-09-22 12:57 | PC.NURSE ---
patient found to be hypotensive 80-90 systolic. provider placed order for 250mL NS bolus. labs/cultures obtained and sent. iv antibiotics infusing. patient w/ baseline of dementia, complaining of left sided neck pain.
[2024-09-22 12:58] LABS: VBG Base Excess -1.1 mmol/L; VBG HCO3 20 mmol/L (22-26); VBG pCO2 27 mmHg; VBG pH 7.48 (7.32-7.43); VBG pO2 95 mmHg
[2024-09-22 12:58] LABS: Venous Blood Gas Refer to POC result
[2024-09-22 13:17] LABS: Alanine Aminotransferase 18 U/L (0-31); Albumin Level 3.6 g/dL (3.5-5.0); Alkaline Phosphatase 134 U/L (39-117); Anion Gap 19 (12-20); Aspartate Amino Transferase 28 U/L (5-31); Bilirubin Total 0.5 mg/dL (0.0-1.0); Blood Urea Nitrogen 49 mg/dL (9-16); Calcium 8.7 mg/dL (8.4-10.2); Carbon Dioxide 21 mmol/L (22-29); Chloride 97 mmol/L (96-108); Creatinine Clr Calc Pharmacy 18.8; Estimated Glomerular Filt Rate 26; Glucose Random 326 mg/dL (60-115); Magnesium 2.5 mg/dL (1.6-2.6); Potassium 4.4 mmol/L (3.3-5.1); Sodium 133 mmol/L (135-145); Total Protein 6.8 g/dL (6.5-8.0)
[2024-09-22 13:18] LABS: B Type Natriuretic Peptide 317 pg/mL (<100)
[2024-09-22 13:21] LABS: Lactic Acid 4.9 mmol/L (0.5-2.0)
[2024-09-22 13:26] LABS: Troponin-I High Sensitivity 6.7 ng/L (<3.5-17.0)
--- OUTSIDE RECORDS SUMMARY | 2024-09-22 14:00 | XMS_ITS | Encounter Summary ---
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 04/29/2024 11:01 AM EST [facility] Comment:Auto resulted. Urine Urine specimen obtained by clean catch procedure / Unknown 04/28/2024 12:15 PM EST 04/29/2024 9:53 AM EST us Torrey Kwok MD LAB URINE ORDERABLES Final Resul t [facility] [address] [place] [address], * (ABNORMAL) Urinalysis with reflex microscopic and culture (04/28/2024 12:15 PM EST) Specific Chase Urine 1.021 1.003 - 1.030 LAB URINALYSIS - AUTOMATED METHOD 04/29/2024 11:05 AM [facility] pH, Urine 5.5 5.0 - 8.0 pH LAB URINALYSIS - AUTOMATED METHOD 04/29/2024 11:05 AM [facility] Leukocytes, Urine Trace(A) Negative LAB URINALYSIS - AUTOMATED METHOD 04/29/2024 11:05 AM [facility] Nitrite, Urine Negative Negative LAB URINALYSIS - AUTOMATED METHOD 04/29/2024 11:05 AM [facility] Protein, Urine Trace <=Trace mg/dL LAB URINALYSIS - AUTOMATED METHOD 04/29/2024 11:05 AM [facility] Glucose, Urine >=1000(A) Negative mg/dL LAB URINALYSIS - AUTOMATED METHOD 04/29/2024 11:05 AM [facility] Ketones, Urine 15(A) Negative mg/dL LAB URINALYSIS - AUTOMATED METHOD 04/29/2024 11:05 AM [facility] Urobilinogen , Urine 0.2 0.2 - 1.0 mg/dL LAB URINALYSIS - AUTOMATED METHOD 04/29/2024 11:05 AM [facility] Bilirubin, Urine Negative Negative LAB URINALYSIS - AUTOMATED METHOD 04/29/2024 11:05 AM [facility] Blood, Urine Negative Negative LAB URINALYSIS - AUTOMATED METHOD 04/29/2024 11:05 AM [facility] RBC, Urine 0.8 0 - 4 /HPF LAB URINALYSIS - AUTOMATED METHOD 04/29/2024 11:05 AM [facility] WBC, Urine 12.6(H) 0 - 4 /HPF LAB URINALYSIS - AUTOMATED METHOD 04/29/2024 11:05 AM [facility] Squamous Epithelial, Urine 10 0 - 60 /LPF LAB URINALYSIS - AUTOMATED METHOD 04/29/2024 11:05 AM [facility] Bacteria, Urine Many(A) Negative /HPF LAB URINALYSIS - AUTOMATED METHOD 04/29/2024 11:05 AM [facility] Hyaline Casts, Urine 0.4 0 - 3 /LPF LAB URINALYSIS - AUTOMATED METHOD 04/29/2024 11:05 AM [facility] Urine Urine specimen from urinary conduit / Unknown Non-blood Collection / Unknown 04/28/2024 12:15 PM EST 04/29/2024 9:53 AM EST Torrey Kwok MD LAB URINE ORDERABLES Final Resul t [facility] [address] [place] [address], documented in this encounter Visit Diagnoses Diagnosis Dysuria documented in this encounter Additional Health Concerns Infection Onset Date Last Indicated Resolved Time Respiratory Rule-Out 07/12/2024 07/11/2024 025 11:25 AM EDT documented as of this encounter Care Teams Form Setter [employer] Forms Relationship Specialty Start Date End Date Torrey Kwok MD [address] [facility] [address] [place] [address] PCP - General Geriatric Medicine 04/25/24 documented as of this encounter
[2024-09-22 14:17] LABS: Appearance Urine Clear; Color Urine Yellow; Glucose Urine UA >=1000 mg/dL (Negative); Leukocyte Esterase Urine Small (1+) (Negative); Nitrite Urine Negative (Negative); UMIC TRIGGER UACC YES; Urine Blood Small (1+) (Negative); Urine Ketones Trace mg/dL (Negative); Urine Protein Trace mg/dL (Neg-Trace)
[2024-09-22 14:22] LABS: Bacteria Urine None Seen (None Seen); Hyaline Casts Urine 0-2 /LPF (0-2); UACC Culture Trigger YES; WBC Urine 21-50 /HPF (0-5)
--- NOTE | 2024-09-22 14:35 | PM.IMHP ---
History of Present Illness Date of Service: 09/22/24 Chief Complaint: AMS , aspiration an 89-year-old female currently residing at [facility] with PMH of hypertension, UTI, hyperlipidemia, atrial fibrillation on anticoagulation, dementia, systolic and diastolic heart failure, hypothyroidism, insulin-dependent diabetes mellitus, chronic constipation, dry macular degeneration, and JADYN not on CPAP presents to the emergency room department secondary to altered mental status and aspiration incident. The patient has been on treatment of Urine infection recently but has been gettign weaker with decreased oral intake. this morning she was noted to vomit after breakfast and had signs of aspiration so brought to ED. The patient was found to be in altered mentation with worsening kidney fucntion and lactic acidosis. seems all related to dehydration from decreased oral intake. admitted for further work up and management. Review of Systems Review of Systems: Yes Unobtainable due to mental status [facility] Medical History Hypothyroidism Constipation Transaminitis Congestive heart failure Ulcer of right ankle Recurrent UTI Urinary tract infection with fever Persistent atrial fibrillation Left thigh pain Abdominal mass, LUQ (left upper quadrant) Iliotibial band syndrome of left side UTI (urinary tract infection) Herpes zoster Orthostatic hypotension Acute hyponatremia Weakness COVID-19 Breast asymmetry Atrial fibrillation with rapid ventricular response Hyperkalemia Essential hypertension Atherosclerotic cardiovascular disease Chronic heart failure with preserved ejection fraction (HFpEF) Iliotibial band syndrome of right side Disc degeneration, lumbar Cognitive dysfunction 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 Atrial fibrillation Osteopenia Hypothyroid Spinal stenosis of lumbar region Degenerative disc disease, lumbar Type 2 diabetes mellitus with hyperglycemia Family History Father CVD (cardiovascular disease) Mother CVD (cardiovascular disease) Stroke Surgical History History of removal of cyst History of appendectomy History of eye surgery History of cataract surgery History of cholecystectomy History of section History of knee replacement History of hip replacement Social History Household Members: Unknown / Unable to assess Household Members Other:: son comes 3 days a week, daughter lives 5 minutes away visits frequently Housing: Intermediate Alcohol intake: never 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 Patient Tobacco Use Status: Former Tobacco user Tobacco use type: Cigarette Years Smoked: <1 e-Cigarette/Vaping Use: Former Use Second Hand Smoke Exposure: No Advance Directives: Yes Advance Directives on File: Yes Advance Directives Date on File: 08/29/21 Do you have a plan to hurt others: No Plan service: No Current occupational status: retired Cognitive needs: Yes (Walker) Hearing needs: No Vision needs: Yes Meds Allergies Allergy/AdvReac Type Severity Reaction Status Date / Time codeine Allergy Intermediate TACHYCARDIA Verified 09/22/24 11:46 nitrofurantoin [Macrobid] Allergy Unknown confusion Verified 09/22/24 11:46 pravastatin Allergy Unknown Unknown Verified 09/22/24 11:46 rosuvastatin [Crestor] Allergy Unknown Unknown Verified 09/22/24 11:46 Sulfa (Sulfonamide Allergy Unknown unknown Verified 09/22/24 11:46 Antibiotics) sulfamethoxazole Allergy Unknown Unknown Verified 09/22/24 11:46 [From Bactrim] trimethoprim [From Bactrim] Allergy Unknown Unknown Verified 09/22/24 11:46 amlodipine AdvReac Intermediate leg Verified 09/22/24 11:46 swelling digoxin AdvReac Intermediate Confusion Verified 09/22/24 11:46 Home Medications ?Medication ?Instructions ?Recorded ?Confirmed ?Last Taken ?Type travoprost 0.004 % eye drops 1 drp ophthalmic (eye) BEDTIME 06/01/20 09/22/24 11/16/23 History acetaminophen 500 mg tablet 1,000 mg PO TID Pain 08/17/21 09/22/24 08/16/21 History cholecalciferol (vitamin D3) 25 25 mcg PO DAILY 01/01/23 09/22/24 04/19/24 History mcg (1,000 unit) capsule insulin lispro 100 unit/mL 1 sliding scale dose subcut TIDAC 11/17/23 09/22/24 04/19/24 History subcutaneous pen (Humalog KwikPen (U-100) Insulin) calcitriol 0.25 mcg capsule 0.25 mcg PO Q48H 04/20/24 09/22/24 04/19/24 History melatonin 5 mg capsule 5 mg PO BEDTIME PRN insomnia 05/05/24 09/22/24 Unknown History bisacodyl 10 mg rectal suppository 10 mg SD DAILY PRN Constipation 07/12/24 09/22/24 Unknown History levothyroxine 150 mcg tablet 150 mcg PO DAILY@0607/12/24 09/22/24 Unknown History magnesium hydroxide 400 mg/5 mL 30 ml PO DAILY PRN Constipation 07/12/24 09/22/24 Unknown History oral suspension (Milk of Magnesia) metoprolol tartrate 25 mg tablet 25 mg PO BEDTIME PRN SBP > 150 07/12/24 09/22/24 Unknown History sennosides 8.6 mg-docusate sodium 1 tab-cap PO BID 07/12/24 09/22/24 Unknown History 50 mg tablet (Senna with Docusate Sodium) sodium phosphates 19 gram-7 118 ml SD DAILY PRN Constipation 07/12/24 09/22/24 Unknown History gram/118 mL enema (Fleet Enema) vit C 250 mg-vit E 90 mg-zinc 40 1 tab PO DAILY 07/12/24 09/22/24 Unknown History mg-copper 1 [id number] capsule (PreserVision AREDS-2) buspirone 5 mg tablet 2.5 mg PO DAILY@189909/22/24 09/22/24 Unknown History fexofenadine 60 mg tablet 60 mg PO DAILY 09/22/24 09/22/24 Unknown History furosemide 20 mg tablet 20 mg PO BID 09/22/24 09/22/24 Unknown History gabapentin 100 mg capsule 100 mg PO BID 09/22/24 09/22/24 Unknown History guaifenesin 400 mg tablet 400 mg PO Q6H PRN Cough/Nasal 09/22/24 09/22/24 Unknown History Congestion ipratropium 0.5 mg-albuterol 3 mg 3 ml inhalation Q6H PRN 09/22/24 09/22/24 Unknown History (2.5 mg base)/3 mL nebulization Non-Productive Cough soln linezolid 600 mg tablet 600 mg PO Q12H 09/22/24 09/22/24 Unknown History mirtazapine 7.5 mg tablet 7.5 mg PO DAILY@189909/22/24 09/22/24 Unknown History rivaroxaban 20 mg tablet (Xarelto) 20 mg PO DAILY@17009/22/24 09/22/24 Unknown History Physical Exam Vital Signs and Narrative: Vital Signs: Last Vital Signs Temp 97.0 F 09/22/24 11:45 Pulse 81 09/22/24 14:12 Resp 14 09/22/24 14:12 BP 110/59 L 09/22/24 14:12 Pulse Ox 93 09/22/24 14:12 O2 Del Method Room Air 09/22/24 14:12 BMI result Body Mass Index 25.1 Const: Other: Constitutional : Awake with stimulation, not in distress Neck : Normal inspection, Supple Cardiovascular : RRR, no JVP, no lower extremity edema Respiratory : good bilateral air entry, basal right sided crackles Gastrointestinal: soft, lax, Normal bowel sounds, Non tender Skin : Warm, Dry Neurological : Alert with stimulation but encephalopathic and lethargic, No focal deficit Results Labs 09/22/24 12:46 09/22/24 12:46 Labs: Laboratory Results - last 24 hr 09/22/24 09/22/24 09/22/24 12:46 12:52 12:54 MCV 98.5 H MCH 31.5 MCHC 32.0 RDW 17.3 H Plt Count 362 D MPV 10.3 Immature Gran % (Auto) 0.7 H Neut % (Auto) 80.0 H Lymph % (Auto) 8.4 L Cannon % (Auto) 7.6 Eos % (Auto) 2.4 Baso % (Auto) 0.9 Lymph # (Auto) 0.6 L Cannon # (Auto) 0.6 Eos # (Auto) 0.2 Baso # (Auto) 0.1 Abs Immat Gran (auto) 0.05 H Absolute Neuts (auto) 6.1 Absolute Nucleated RBC 0.000 Nucleated RBC % (auto) 0.0 VBG pH 7.48 H VBG pCO2 27 VBG pO2 95 VBG HCO3 20 L VBG O2 Saturation 99.0 VBG Base Excess -1.1 Anion Gap 19 Estim Creat Clear Calc 18.8 Estimated GFR 26 Random Glucose 326 H Lactic Acid 4.9 H* Calcium 8.7 Magnesium 2.5 Total Bilirubin 0.5 AST 28 ALT 18 Alkaline Phosphatase 134 H Troponin I High Sens 6.7 B-Natriuretic Peptide 317 H Total Protein 6.8 Albumin 3.6 Urine Color Urine Appearance Urine pH Ur Specific [place] Urine Protein Urine Glucose (UA) Urine Ketones Urine Blood Urine Nitrite Ur Leukocyte Esterase Urine RBC Urine WBC Ur Squamous Epith Cells Urine Bacteria Hyaline Casts 09/22/24 14:04 MCV MCH MCHC RDW Plt Count MPV Immature Gran % (Auto) Neut % (Auto) Lymph % (Auto) Cannon % (Auto) Eos % (Auto) Baso % (Auto) Lymph # (Auto) Cannon # (Auto) Eos # (Auto) Baso # (Auto) Abs Immat Gran (auto) Absolute Neuts (auto) Absolute Nucleated RBC Nucleated RBC % (auto) VBG pH VBG pCO2 VBG pO2 VBG HCO3 VBG O2 Saturation VBG Base Excess Anion Gap Estim Creat Clear Calc Estimated GFR Random Glucose Lactic Acid Calcium Magnesium Total Bilirubin AST ALT Alkaline Phosphatase Troponin I High Sens B-Natriuretic Peptide Total Protein Albumin Urine Color Yellow Urine Appearance Clear Urine pH 5.0 Ur Specific [place] 1.020 Urine Protein Trace Urine Glucose (UA) >=1000 H Urine Ketones Trace Urine Blood Small (1+) H Urine Nitrite Negative Ur Leukocyte Esterase Small (1+) H Urine RBC 6-10 H Urine WBC 21-50 H Ur Squamous Epith Cells 3-5 Urine Bacteria None Seen Hyaline Casts 0-2 Imaging Radiologist's Impressions: Impressions Chest X-Ray 09/22/24 11:29 IMPRESSION: Mild interstitial lung edema likely small right-sided pleural effusion. Superimposed acute inflammatory process cannot be excluded. Cardiomegaly versus pericardial effusion. Electronically signed by: Jose L Cisneros MD 09/22/2024 12:56 PM EDT RP Assessment and Plan (1) Acute UTI: Status: Acute (2) Congestive heart failure: Status: Acute (3) Hematuria: Status: Acute (4) Chronic combined systolic and diastolic CHF (congestive heart failure): Status: Acute (5) Encephalopathy: Status: Acute (6) Aspiration into airway: Status: Acute Plan an 89-year-old female currently residing at LT with PMH of hypertension, UTI, hyperlipidemia, atrial fibrillation on anticoagulation, dementia, systolic and diastolic heart failure, hypothyroidism, insulin-dependent diabetes mellitus, chronic constipation, dry macular degeneration, and JADYN not on CPAP presents to the emergency room department secondary to altered mental status and aspiration incident. Aspiration pneumonia\pneumonitis CXR showing right sided changes IV Zosyn IV steroids LAUNDRY TECH eval Acute metabolic encephalopathy likely from infection and medications Hold Mirtazapine and Gabapentin along with Fexofenadine JAZ on CKD3 follow I\O IVF Acute lactic acidosis likely from renal failre, improved with fluids Hyperglycemia in DMII SSI Lantus Afib Xarelto and amiodarine, Metoprolol DVT PPx Xarelto The patient needs 2 overnight hospital stay for treatment of aspiration pneumonia with IV antibiotics pendung speech eval and improve mentation Quality Stroke Does the patient have a stroke diagnosis?: No VTE Prior VTE?: No VTE Risk Level:: Medical - moderate - high VTE Device Contraindication: Treatment Not Indicated VTE Drug Contraindication: N/A - Med Ordered
[2024-09-22 14:52] LABS: Reflex Lactate? Lactic Acid Added
[2024-09-22] MEDS: Lactated Ringers 1,000 ML 80 ML IVCONT (15:15)
[2024-09-22] MEDS: 0.9 % Sodium Chloride Flush 3 ML SYRINGE IVFLUSH (15:16)
--- NOTE | 2024-09-22 15:19 | PC.NURSE ---
temp sensing smith previously placed as ordered. IV fluids infusing per the MAR, daughter remains at the bedside.
--- NOTE | 2024-09-22 15:28 | PHA.MEDREC ---
Addendum entered by Ave Perkins RPh 09/22/24 16:08: REVIEWED BY PHARMACIST Original Note: Pharmacy Consult ? Medication Reconciliation Pharmacy has completed the medication reconciliation. Utilized list from Victorina Reddy to confirm med rec.
[2024-09-22 15:31] LABS: Lactic Acid 1.8 mmol/L (0.5-2.0)
--- NOTE | 2024-09-22 17:35 | PC.NURSE ---
NPO, however can have water. patient tolerated water well
[2024-09-22] MEDS: methylPREDNISolone Sod Succ 40 MG/ML VIAL IVPUSH (17:36)
[2024-09-22] MEDS: Rivaroxaban 20 MG TABLET PO (17:36)
--- NOTE | 2024-09-22 18:50 | PC.NURSE ---
camera in room for patient safety.
[2024-09-22 19:32] LABS: Glucose, Whole Blood 570 mg/dL (60-115)
--- NOTE | 2024-09-22 19:35 | PC.NURSE ---
pt resting comfortably in bed, awake and calling out for Fatou? pleasantly confused, playing with gown, IV tubing, monitors, camera in place, call wise w/in reach, no apparent distress noted
[2024-09-22] MEDS: busPIRone HCl 5 MG TABLET 2.5 MG PO (19:52)
[2024-09-22] MEDS: Insulin Regular, Human 100 UNIT/ML 10 ML VIAL IVPUSH (20:47)
[2024-09-22 20:50] LABS: Glucose, Whole Blood > 600 mg/dL (60-115)
[2024-09-22] MEDS: Furosemide 20 MG TABLET PO (21:07)
[2024-09-22 21:54] LABS: Anion Gap 25 (12-20); Blood Urea Nitrogen 51 mg/dL (9-16); Calcium 8.4 mg/dL (8.4-10.2); Carbon Dioxide 15 mmol/L (22-29); Chloride 94 mmol/L (96-108); Creatinine Clr Calc Pharmacy 20.7; Estimated Glomerular Filt Rate 29; Glucose Random 614 mg/dL (60-115); Potassium 4.8 mmol/L (3.3-5.1); Sodium 129 mmol/L (135-145)
[2024-09-22 22:48] LABS: Glucose, Whole Blood 434 mg/dL (60-115)
[2024-09-22] MEDS: Insulin Regular/NS 100 UNIT/100 ML PLAST..BAG 8 UNIT IVCONT (22:56)
[2024-09-22] MEDS: Melatonin 3 MG TABLET 6 MG PO (23:04)
--- NOTE | 2024-09-22 23:08 | P.PNCC_ITS ---
Critical Care Event Note Summary Date of Service: 09/22/24 Code activated: No Narrative: This case had a high probability of a clinically significant, sudden, or life threatening deterioration of this patient's condition which required my full and direct attention, intervention and personal management. Critical Care Time (minutes): 60 Comment: 81-year-old female with underlying history of hypertension, recurrent UTIs, hyperlipidemia, atrial fibrillation on Xarelto, systolic and diastolic CHF, hypothyroidism, senile dementia, type 2 diabetes with insulin dependence, macular degeneration, constipation, obstructive sleep apnea on CPAP who lives at a half-way facility had been admitted to the medical floor earlier in the afternoon after being seen in the emergency room due to altered mental status and worsening renal function, lactic acidosis which improved to with IV fluids.? The patient was started on Zosyn, IV steroids, Lyons catheter had been placed and admitted to the floor for management of her UTI in the possibility of aspiration pneumonia as there is some evidence of possible pneumonitis on x- ray.? While in the floor, the patient had become more restless, tachycardic, the patient had her sugar checked and was noted it was over 600, subsequently a blood gas was done and this showed significant acidosis prompting the possibility of DKA, the patient was transferred to the ICU for further care. ?The patient is unable to answer questions given her dementia. Focused Review of systems:? Unable to obtain, daughter at bedside states that she does not have standing dose of Lantus in the to her knowledge she only takes insulin sliding scale. VS: ?163 over 70, 89, 16, 93% on room air, 97.2. General:? Alert but not oriented, unable to follow commands.? Unable to answer questions. Skin:? Intact, no lesions or rash HEENT:? Normocephalic, atraumatic, extraocular movements intact, neck is supple, no lymphadenopathy.? Buccal mucosa moist.? Throat midline. Cardiac:? Irregularly irregular 90 beats per minute, no murmurs, rubs or gallops. Pulmonary:? Slight coarseness with fine crackles at the right base more than left, no rhonchi.? No wheezing. Abdomen:? Protuberant, positive bowel sounds in all 4 quadrants.? Soft, nontender, no rebound or guarding.? No CVA tenderness. Musculoskeletal:? Moving all 4 extremities upon request a major joints, no calf tenderness, 1+ up to mid tibia Neurologic:? As above, no focal deficits. Vascular:? 2+ pulses upper and lower extremities distally.? Less than 2nd capillary refill of the finger and toes bilaterally upper and lower extremities. SIGNIFICANT LABORATORY DATA: ?White blood cells 8.5, hemoglobin 10.4, hematocrit 31.7, platelets 286, sodium 129, potassium 4.8, chloride 94, carbon dioxide 15, anion gap 25, BUN 51, creatinine 1.69, random glucose 614.? Urinalysis showed trace ketonuria. ?Respiratory panel pending. REVIEW OF IMAGES: CXR IMPRESSION: Mild interstitial lung edema likely small right-sided pleural effusion. Superimposed acute inflammatory process cannot be excluded. Cardiomegaly versus pericardial effusion. ASSESSMENT AND PLAN: 1. Acute DKA 2. Acute metabolic acidosis 3. Urinary tract infection 4. Acute kidney injury 5. Hypovolemic hypoosmolar hyponatremia 6. Suspected aspiration pneumonitis of the right lung The patient is transferred to the ICU for further care, she did receive loading dose of IV insulin, she will be started at a units of regular insulin for our, check blood sugars every 1 hour, replace potassium, checked Chem 7 every 4 hours.? When blood sugar less than 250 we will switch her from LR to D5 LR being cautious of the fact that the patient has history of CHF and can easily become fluid overloaded. When the gap closes, the patient's drip will be discontinued and she will be ready to start subQ insulin before meals.? Judging on recent consumption, the patient likely will need 4-6 units before each meal to prevent DKA from recurrent especially in the setting of an infection.? She should continue with IV hydration gently and avoid nephrotoxins.? Continue to hold gabapentin, and mirtazapine, fexofenadine.? Hold Lasix and metoprolol as the patient's blood pressure is borderline.? One-to-one sitter due to agitation and recurrent attempt to pull her IV GI PROPHYLAXIS:? Oral prilosec DVT PROPHYLAXIS:? Continue Xarelto Overnight the patient became hypotensive while sleeping, I do not think the patient is septic, however given the renal failure she may have retention of metoprolol byproducts, we will give her albumin as the patient has high risk of developing CHF higher IV fluid rate therefore I do not think the patient would handle 30 mL/kilos nor do I think she is septic at this point. She is on antibiotics. Continue with the above-mentioned plan of care. Critical care time used for critical evaluation of this patient, diagnosis, treatment and coordination of care, review her records and documentation TOTAL CRITICAL CARE TIME? 60? MIN . discussion and coordination with consultants, completely separate from any procedures performed. Patient's care was discussed in detail with Dr. Johnson is aware of all the above as well as the plan of care for this patient.
[2024-09-22 23:51] LABS: Glucose, Whole Blood 351 mg/dL (60-115)
[2024-09-23] VITALS (18 sets, daily range): BP systolic 90–165; BP diastolic 45–94; PULSE 78–100; RESP 11–20; TEMP 36–36.8; O2SAT 92–97; BMI 25.2
[2024-09-23] MEDS: 0.9 % Sodium Chloride Flush 3 ML SYRINGE IVFLUSH ×3 (00:36→19:51)
[2024-09-23 00:49] LABS: Glucose, Whole Blood 270 mg/dL (60-115)
[2024-09-23] MEDS: Dextrose 5 % and Lactated Ring 1,000 ML 50 ML IVCONT (01:01)
[2024-09-23] MEDS: Piperacillin Sodium/Tazobactam 3.375 GM in 0.9 % Sodium Chloride 50 ML IV ×4 (01:25→18:06)
[2024-09-23 01:42] LABS: Alanine Aminotransferase 19 U/L (0-31); Alkaline Phosphatase 103 U/L (39-117); Anion Gap 20 (12-20); Aspartate Amino Transferase 22 U/L (5-31); Bilirubin Total 0.3 mg/dL (0.0-1.0); Blood Urea Nitrogen 47 mg/dL (9-16); Calcium 7.9 mg/dL (8.4-10.2); Carbon Dioxide 18 mmol/L (22-29); Chloride 101 mmol/L (96-108); Estimated Glomerular Filt Rate 32; Glucose Random 242 mg/dL (60-115); Potassium 3.8 mmol/L (3.3-5.1); Sodium 135 mmol/L (135-145); Total Protein 5.4 g/dL (6.5-8.0)
--- NOTE | 2024-09-23 01:44 | PM.SEPBOLA4 ---
Sepsis Bolus Exclusion Sepsis Bolus Exclusion CHF/Renal Failure Date of Occurrence: 09/22/24 Time of Occurrence:: 23:00 This patient met severe sepsis criteria due to the following condition(s):: Hypotension In my clinical judgement the administration of 30 ml/kg of crystalloid would be detrimental to this patient due to the patient's following conditions:: NYHA class III or IV Heart Failure(symptoms with low exertion or rest) and Concern for fluid overload Other (must be specific):: Acidosis / DKA can't r/o early sepsis, no IVF hx CHF risk of fluid overload Replace the 30 mls/kg with (Zero amount not acceptable and all fluids for severe sepsis must be given at GREATER than 125 mls/hr) *Note: One of the flores must be documented Colloids amount given in mls:: 200 At a rate of (must be > 125 cchr):: 133
[2024-09-23 01:52] LABS: Glucose, Whole Blood 186 mg/dL (60-115)
[2024-09-23] MEDS: Albumin Human 25 % 100 ML 133.3 ML IV ×2 (01:55→02:47)
[2024-09-23 02:59] LABS: Glucose, Whole Blood 178 mg/dL (60-115)
[2024-09-23 04:03] LABS: Glucose, Whole Blood 138 mg/dL (60-115)
[2024-09-23] MEDS: Potassium Chloride Packet 20 MEQ PACKET 40 MEQ PO (04:36)
[2024-09-23 04:42] LABS: VBG Base Excess 1.5 mmol/L; VBG HCO3 23 mmol/L (22-26); VBG pCO2 30 mmHg; VBG pO2 71 mmHg
[2024-09-23 04:46] LABS: Venous Blood Gas Refer to POC result
[2024-09-23 04:59] LABS: Glucose, Whole Blood 142 mg/dL (60-115)
[2024-09-23 05:10] LABS: Basophils Percent Auto 0.2 % (0-2); Hematocrit 29.9 % (37.0-47.0); Hemoglobin 10.1 g/dl (12.0-16.0); Imm Gran Abs Auto 0.04 X10*3/uL (0.00-0.03); Imm Gran Pct Auto 0.5 % (0.0-0.4); Lymphocytes Absolute Auto 0.4 X10*3/uL (1.2-4.9); MANUAL DIFF FLAG SCAN; Mean Corpuscular HGB Conc 33.8 g/dl (31.0-35.0); Mean Corpuscular Hemoglobin 31.4 pg (27.0-33.0); Mean Corpuscular Volume 92.9 fL (80.0-98.0); Mean Platelet Volume 10.6 fL (9.4-12.3); Monocytes Absolute Auto 0.1 X10*3/uL (0.1-1.2); Monocytes Percent Auto 1.4 % (2-11); Neutrophils Absolute Auto 7.8 x10*3/uL (2.0-8.3); Neutrophils Percent Auto 92.9 % (45-73); Platelet Count 261 X10*3/uL (160-400); Red Blood Count 3.22 X10*6/uL (4.20-5.50); Red Cell Distribution Width 16.8 % (11.0-16.0); SCAN SMEAR FLAG 1; White Blood Count 8.4 X10*3/uL (4.8-10.8)
[2024-09-23 05:29] LABS: Alanine Aminotransferase 12 U/L (0-31); Albumin Level 4.3 g/dL (3.5-5.0); Alkaline Phosphatase 91 U/L (39-117); Anion Gap 20 (12-20); Aspartate Amino Transferase 23 U/L (5-31); Bilirubin Total 0.5 mg/dL (0.0-1.0); Blood Urea Nitrogen 49 mg/dL (9-16); Calcium 8.8 mg/dL (8.4-10.2); Carbon Dioxide 22 mmol/L (22-29); Chloride 99 mmol/L (96-108); Creatinine Clr Calc Pharmacy 21.9; Estimated Glomerular Filt Rate 30; Glucose Random 134 mg/dL (60-115); Magnesium 2.4 mg/dL (1.6-2.6); Phosphorus 3.2 mg/dL (2.7-4.5); Sodium 137 mmol/L (135-145); Total Protein 6.6 g/dL (6.5-8.0)
[2024-09-23 05:35] LABS: SLIDE REVIEW VERIFIED
[2024-09-23 05:59] LABS: Influenza A PCR NEGATIVE (Negative); Influenza B PCR NEGATIVE (Negative); Resp Syncy Virus RNA Qual PCR NEGATIVE (Negative); SARS COV2 PCR INHOUSE NEGATIVE (Negative)
[2024-09-23 06:00] LABS: Glucose, Whole Blood 126 mg/dL (60-115)
[2024-09-23] MEDS: Levothyroxine Sodium 150 MCG TABLET PO (06:38)
[2024-09-23] MEDS: Omeprazole 20 MG CAPSULE.DR PO (06:38)
--- NOTE | 2024-09-23 06:46 | PC.NURSE ---
Patient arrived to [facility] from [facility] on 09/22/24 at 2340 for treatment of hyperglycemia. Upon arrival to unit, patient alert and oriented to self only, confused and impulsive, attempting to pull IV line. Redirectable at times, but needs frequent redirection. Insulin gtt initiated once patient arrived and was titrated hourly per provider (see MAR). POC Q1H. Patient is afib on monitor 70-80?s. BP 90-120/40-70. Patient experienced soft BP between 0100 and 0200, albumin x 2 administered. No edema. Currently being anticoagulated with xarelto. She is on room air, lungs diminished throughout, maintain O2 saturation above 93%. Unknown last bowel movement, positive bowel sounds in all 4 quadrants. IUC placed prior to arriving to floor, patent and draining. Patient experiencing some hematuria, provider aware.? Skin is intact, some minor bruising on bilateral extremities. Patient accepted medication whole in pudding, requiring much encouragement and prompting.? Currently has 1:1 sitter at bedside to protect lines and safety. Call wise in place, bed at lowest setting, plan of care continuing.
[2024-09-23 07:03] LABS: Glucose, Whole Blood 125 mg/dL (60-115)
[2024-09-23 08:27] LABS: Glucose, Whole Blood 96 mg/dL (60-115)
[2024-09-23 09:14] LABS: Glucose, Whole Blood 100 mg/dL (60-115)
[2024-09-23 09:47] LABS: Alanine Aminotransferase 22 U/L (0-31); Albumin Level 4.3 g/dL (3.5-5.0); Alkaline Phosphatase 91 U/L (39-117); Anion Gap 15 (12-20); Aspartate Amino Transferase 28 U/L (5-31); Bilirubin Total 0.6 mg/dL (0.0-1.0); Blood Urea Nitrogen 44 mg/dL (9-16); Calcium 8.9 mg/dL (8.4-10.2); Carbon Dioxide 26 mmol/L (22-29); Chloride 101 mmol/L (96-108); Creatinine Clr Calc Pharmacy 23.4; Estimated Glomerular Filt Rate 33; Glucose Random 95 mg/dL (60-115); Potassium 3.8 mmol/L (3.3-5.1); Sodium 138 mmol/L (135-145); Total Protein 6.7 g/dL (6.5-8.0)
[2024-09-23 10:13] LABS: Glucose, Whole Blood 106 mg/dL (60-115)
[2024-09-23 11:25] LABS: Glucose, Whole Blood 119 mg/dL (60-115)
[2024-09-23 12:06] LABS: Glucose, Whole Blood 130 mg/dL (60-115)
--- NOTE | 2024-09-23 12:33 | MHC.CM.PN ---
Met with pt to discuss d/c planning: pt pleasant but not a reliable historian. Information obtained from dtr and staff at [facility]: Pt is dependent on staff for ADL's, can transfer and ambulate w/walker and staff; but mostly w/c bound, continent x 2 with scheduling. Pt will return to [facility] via BLS when medically stable. IMM in chart, HCP/MOLST verified: CM to follow.
--- NOTE | 2024-09-23 12:39 | PM.CCPN ---
Subjective Subjective Date of Service: 09/23/24 Interval History: Complains that she is cold, does not talk much On insulin drip for DKA and hyperglycemia Critical Care Time (minutes): 35 Physical Exam Vital Signs: Vital Signs: Last Vital Signs Temp 96.8 F 09/23/24 04:00 Pulse 99 09/23/24 12:00 Resp 15 09/23/24 12:00 BP 165/94 H 09/23/24 12:00 Pulse Ox 96 09/23/24 12:00 O2 Del Method Room Air 09/23/24 12:00 BMI result Body Mass Index 25.2 General: Elderly lady in somewhat acute distress, ill appearing and tired appearing Nutritional Appearance: well nourished and normal weight Eyes: appearance normal, both eyes and all related structures; Alignment and Position: alignment normal and position normal Neck: No lymphadenopathy, no thyromegaly Resp: bilateral air entry equal, occasional added sounds present Cardio: Regular rate, regular rhythm; Heart sounds: S1 normal heart sound present and S2 normal heart sound present GI: soft, nontender, no guarding, no hepatosplenomegaly : bladder normal to inspection, bladder normal to palpation, no renal angle tenderness Skin: no rashes or lesions noted and elasticity normal Neuro: Does not talk, no focal deficits, moves all extremities Objective Data Labs 09/23/24 04:34 09/23/24 08:50 Labs: Laboratory Results - last 24 hr 09/22/24 09/22/24 09/22/24 12:46 12:52 12:54 WBC 7.6 RBC 3.97 L D Hgb 12.5 D Hct 39.1 D MCV 98.5 H MCH 31.5 MCHC 32.0 RDW 17.3 H Plt Count 362 D MPV 10.3 Immature Gran % (Auto) 0.7 H Neut % (Auto) 80.0 H Lymph % (Auto) 8.4 L [place] % (Auto) 7.6 Eos % (Auto) 2.4 Baso % (Auto) 0.9 Lymph # (Auto) 0.6 L [place] # (Auto) 0.6 Eos # (Auto) 0.2 Baso # (Auto) 0.1 Abs Immat Gran (auto) 0.05 H Absolute Neuts (auto) 6.1 Absolute Nucleated RBC 0.000 Nucleated RBC % (auto) 0.0 Smear Tech's Comments Hold Purple Top VBG pH 7.48 H VBG pCO2 27 VBG pO2 95 VBG HCO3 20 L VBG O2 Saturation 99.0 VBG Base Excess -1.1 Sodium 133 L Potassium 4.4 Chloride 97 Carbon Dioxide 21 L Anion Gap 19 BUN 49 H Creatinine 1.86 H Estim Creat Clear Calc 18.8 Estimated GFR 26 POC Glucose Random Glucose 326 H Lactic Acid 4.9 H* Calcium 8.7 Phosphorus Magnesium 2.5 Total Bilirubin 0.5 AST 28 ALT 18 Alkaline Phosphatase 134 H Troponin I High Sens 6.7 B-Natriuretic Peptide 317 H Total Protein 6.8 Albumin 3.6 Urine Color Urine Appearance Urine pH Ur Specific Van Urine Protein Urine Glucose (UA) Urine Ketones Urine Blood Urine Nitrite Ur Leukocyte Esterase Urine RBC Urine WBC Ur Squamous Epith Cells Urine Bacteria Hyaline Casts Influenza Type A (PCR) Influenza Type B (PCR) RSV RNA Qual (PCR) SARS-CoV-2 RNA (RT-PCR) 09/22/24 09/22/24 09/22/24 14:04 15:03 19:29 WBC RBC Hgb Hct MCV MCH MCHC RDW Plt Count MPV Immature Gran % (Auto) Neut % (Auto) Lymph % (Auto) [place] % (Auto) Eos % (Auto) Baso % (Auto) Lymph # (Auto) [place] # (Auto) Eos # (Auto) Baso # (Auto) Abs Immat Gran (auto) Absolute Neuts (auto) Absolute Nucleated RBC Nucleated RBC % (auto) Smear Tech's Comments Hold Purple Top VBG pH VBG pCO2 VBG pO2 VBG HCO3 VBG O2 Saturation VBG Base Excess Sodium Potassium Chloride Carbon Dioxide Anion Gap BUN Creatinine Estim Creat Clear Calc Estimated GFR POC Glucose 570 H* Random Glucose Lactic Acid 1.8 Calcium Phosphorus Magnesium Total Bilirubin AST ALT Alkaline Phosphatase Troponin I High Sens B-Natriuretic Peptide Total Protein Albumin Urine Color Yellow Urine Appearance Clear Urine pH 5.0 Ur Specific Van 1.020 Urine Protein Trace Urine Glucose (UA) >=1000 H Urine Ketones Trace Urine Blood Small (1+) H Urine Nitrite Negative Ur Leukocyte Esterase Small (1+) H Urine RBC 6-10 H Urine WBC 21-50 H Ur Squamous Epith Cells 3-5 Urine Bacteria None Seen Hyaline Casts 0-2 Influenza Type A (PCR) Influenza Type B (PCR) RSV RNA Qual (PCR) SARS-CoV-2 RNA (RT-PCR) 09/22/24 09/22/24 09/22/24 20:42 21:14 22:42 WBC RBC Hgb Hct MCV MCH MCHC RDW Plt Count MPV Immature Gran % (Auto) Neut % (Auto) Lymph % (Auto) [place] % (Auto) Eos % (Auto) Baso % (Auto) Lymph # (Auto) [place] # (Auto) Eos # (Auto) Baso # (Auto) Abs Immat Gran (auto) Absolute Neuts (auto) Absolute Nucleated RBC Nucleated RBC % (auto) Smear Tech's Comments Hold Purple Top VBG pH VBG pCO2 VBG pO2 VBG HCO3 VBG O2 Saturation VBG Base Excess Sodium 129 L Potassium 4.8 Chloride 94 L Carbon Dioxide 15 L Anion Gap 25 H BUN 51 H Creatinine 1.69 H Estim Creat Clear Calc 20.7 Estimated GFR 29 POC Glucose > 600 H* 434 H* Random Glucose 614 H* Lactic Acid Calcium 8.4 Phosphorus Magnesium Total Bilirubin AST ALT Alkaline Phosphatase Troponin I High Sens B-Natriuretic Peptide Total Protein Albumin Urine Color Urine Appearance Urine pH Ur Specific [place]rine Protein Urine Glucose (UA) Urine Ketones Urine Blood Urine Nitrite Ur Leukocyte Esterase Urine RBC Urine WBC Ur Squamous Epith Cells Urine Bacteria Hyaline Casts Influenza Type A (PCR) Influenza Type B (PCR) RSV RNA Qual (PCR) SARS-CoV-2 RNA (RT-PCR) 09/22/24 09/23/24 09/23/24 23:48 00:44 01:14 WBC RBC Hgb Hct MCV MCH MCHC RDW Plt Count MPV Immature Gran % (Auto) Neut % (Auto) Lymph % (Auto) [place] % (Auto) Eos % (Auto) Baso % (Auto) Lymph # (Auto) [place] # (Auto) Eos # (Auto) Baso # (Auto) Abs Immat Gran (auto) Absolute Neuts (auto) Absolute Nucleated RBC Nucleated RBC % (auto) Smear Tech's Comments Hold Purple Top VBG pH VBG pCO2 VBG pO2 VBG HCO3 VBG O2 Saturation VBG Base Excess Sodium 135 Potassium 3.8 D Chloride 101 Carbon Dioxide 18 L Anion Gap 20 BUN 47 H Creatinine 1.52 H Estim Creat Clear Calc 23.0 Estimated GFR 32 POC Glucose 351 H* 270 H Random Glucose 242 H Lactic Acid Calcium 7.9 L Phosphorus Magnesium Total Bilirubin 0.3 AST 22 ALT 19 Alkaline Phosphatase 103 Troponin I High Sens B-Natriuretic Peptide Total Protein 5.4 L Albumin 3.0 L Urine Color Urine Appearance Urine pH Ur Specific [place]rine Protein Urine Glucose (UA) Urine Ketones Urine Blood Urine Nitrite Ur Leukocyte Esterase Urine RBC Urine WBC Ur Squamous Epith Cells Urine Bacteria Hyaline Casts Influenza Type A (PCR) Influenza Type B (PCR) RSV RNA Qual (PCR) SARS-CoV-2 RNA (RT-PCR) 09/23/24 09/23/24 09/23/24 01:45 02:50 03:59 WBC RBC Hgb Hct MCV MCH MCHC RDW Plt Count MPV Immature Gran % (Auto) Neut % (Auto) Lymph % (Auto) [place] % (Auto) Eos % (Auto) Baso % (Auto) Lymph # (Auto) [place] # (Auto) Eos # (Auto) Baso # (Auto) Abs Immat Gran (auto) Absolute Neuts (auto) Absolute Nucleated RBC Nucleated RBC % (auto) Smear Tech's Comments Hold Purple Top VBG pH VBG pCO2 VBG pO2 VBG HCO3 VBG O2 Saturation VBG Base Excess Sodium Potassium Chloride Carbon Dioxide Anion Gap BUN Creatinine Estim Creat Clear Calc Estimated GFR POC Glucose 186 H 178 H 138 H Random Glucose Lactic Acid Calcium Phosphorus Magnesium Total Bilirubin AST ALT Alkaline Phosphatase Troponin I High Sens B-Natriuretic Peptide Total Protein Albumin Urine Color Urine Appearance Urine pH Ur Specific [place]rine Protein Urine Glucose (UA) Urine Ketones Urine Blood Urine Nitrite Ur Leukocyte Esterase Urine RBC Urine WBC Ur Squamous Epith Cells Urine Bacteria Hyaline Casts Influenza Type A (PCR) Influenza Type B (PCR) RSV RNA Qual (PCR) SARS-CoV-2 RNA (RT-PCR) 09/23/24 09/23/24 09/23/24 04:34 04:35 04:38 WBC 8.4 RBC 3.22 L Hgb 10.1 L Hct 29.9 L D MCV 92.9 D MCH 31.4 MCHC 33.8 RDW 16.8 H Plt Count 261 D MPV 10.6 Immature Gran % (Auto) 0.5 H Neut % (Auto) 92.9 H Lymph % (Auto) 5.0 L [place] % (Auto) 1.4 L Eos % (Auto) 0.0 Baso % (Auto) 0.2 Lymph # (Auto) 0.4 L [place] # (Auto) 0.1 Eos # (Auto) 0.0 Baso # (Auto) 0.0 Abs Immat Gran (auto) 0.04 H Absolute Neuts (auto) 7.8 Absolute Nucleated RBC 0.000 Nucleated RBC % (auto) 0.0 Smear Tech's Comments VERIFIED Hold Purple Top VBG pH 7.50 H VBG pCO2 30 VBG pO2 71 VBG HCO3 23 VBG O2 Saturation 94.0 VBG Base Excess 1.5 Sodium 137 Potassium 4.0 Chloride 99 Carbon Dioxide 22 Anion Gap 20 BUN 49 H Creatinine 1.60 H Estim Creat Clear Calc 21.9 Estimated GFR 30 POC Glucose Random Glucose 134 H Lactic Acid Calcium 8.8 D Phosphorus 3.2 Magnesium 2.4 Total Bilirubin 0.5 AST 23 ALT 12 Alkaline Phosphatase 91 Troponin I High Sens B-Natriuretic Peptide Total Protein 6.6 Albumin 4.3 Urine Color Urine Appearance Urine pH Ur Specific [place]rine Protein Urine Glucose (UA) Urine Ketones Urine Blood Urine Nitrite Ur Leukocyte Esterase Urine RBC Urine WBC Ur Squamous Epith Cells Urine Bacteria Hyaline Casts Influenza Type A (PCR) Influenza Type B (PCR) RSV RNA Qual (PCR) SARS-CoV-2 RNA (RT-PCR) 09/23/24 09/23/24 09/23/24 04:56 05:14 05:51 WBC RBC Hgb Hct MCV MCH MCHC RDW Plt Count MPV Immature Gran % (Auto) Neut % (Auto) Lymph % (Auto) [place] % (Auto) Eos % (Auto) Baso % (Auto) Lymph # (Auto) [place] # (Auto) Eos # (Auto) Baso # (Auto) Abs Immat Gran (auto) Absolute Neuts (auto) Absolute Nucleated RBC Nucleated RBC % (auto) Smear Tech's Comments Hold Purple Top VBG pH VBG pCO2 VBG pO2 VBG HCO3 VBG O2 Saturation VBG Base Excess Sodium Potassium Chloride Carbon Dioxide Anion Gap BUN Creatinine Estim Creat Clear Calc Estimated GFR POC Glucose 142 H 126 H Random Glucose Lactic Acid Calcium Phosphorus Magnesium Total Bilirubin AST ALT Alkaline Phosphatase Troponin I High Sens B-Natriuretic Peptide Total Protein Albumin Urine Color Urine Appearance Urine pH Ur Specific [place]rine Protein Urine Glucose (UA) Urine Ketones Urine Blood Urine Nitrite Ur Leukocyte Esterase Urine RBC Urine WBC Ur Squamous Epith Cells Urine Bacteria Hyaline Casts Influenza Type A (PCR) NEGATIVE Influenza Type B (PCR) NEGATIVE RSV RNA Qual (PCR) NEGATIVE SARS-CoV-2 RNA (RT-PCR) NEGATIVE 06/09/23/24 09/23/24 06:59 08:23 08:50 WBC RBC Hgb Hct MCV MCH MCHC RDW Plt Count MPV Immature Gran % (Auto) Neut % (Auto) Lymph % (Auto) [place] % (Auto) Eos % (Auto) Baso % (Auto) Lymph # (Auto) [place] # (Auto) Eos # (Auto) Baso # (Auto) Abs Immat Gran (auto) Absolute Neuts (auto) Absolute Nucleated RBC Nucleated RBC % (auto) Smear Tech's Comments Hold Purple Top SEE NOTE VBG pH VBG pCO2 VBG pO2 VBG HCO3 VBG O2 Saturation VBG Base Excess Sodium 138 Potassium 3.8 Chloride 101 Carbon Dioxide 26 Anion Gap 15 BUN 44 H Creatinine 1.50 H Estim Creat Clear Calc 23.4 Estimated GFR 33 POC Glucose 125 H 96 Random Glucose 95 Lactic Acid Calcium 8.9 Phosphorus Magnesium Total Bilirubin 0.6 AST 28 ALT 22 Alkaline Phosphatase 91 Troponin I High Sens B-Natriuretic Peptide Total Protein 6.7 Albumin 4.3 Urine Color Urine Appearance Urine pH Ur Specific [place] Protein Urine Glucose (UA) Urine Ketones Urine Blood Urine Nitrite Ur Leukocyte Esterase Urine RBC Urine WBC Ur Squamous Epith Cells Urine Bacteria Hyaline Casts Influenza Type A (PCR) Influenza Type B (PCR) RSV RNA Qual (PCR) SARS-CoV-2 RNA (RT-PCR) 09/23/24 09/23/24 09/23/24 09:10 10:09 11:18 WBC RBC Hgb Hct MCV MCH MCHC RDW Plt Count MPV Immature Gran % (Auto) Neut % (Auto) Lymph % (Auto) [place] % (Auto) Eos % (Auto) Baso % (Auto) Lymph # (Auto) [place] # (Auto) Eos # (Auto) Baso # (Auto) Abs Immat Gran (auto) Absolute Neuts (auto) Absolute Nucleated RBC Nucleated RBC % (auto) Smear Tech's Comments Hold Purple Top VBG pH VBG pCO2 VBG pO2 VBG HCO3 VBG O2 Saturation VBG Base Excess Sodium Potassium Chloride Carbon Dioxide Anion Gap BUN Creatinine Estim Creat Clear Calc Estimated GFR POC Glucose 100 106 119 H Random Glucose Lactic Acid Calcium Phosphorus Magnesium Total Bilirubin AST ALT Alkaline Phosphatase Troponin I High Sens B-Natriuretic Peptide Total Protein Albumin Urine Color Urine Appearance Urine pH Ur Specific [place] Protein Urine Glucose (UA) Urine Ketones Urine Blood Urine Nitrite Ur Leukocyte Esterase Urine RBC Urine WBC Ur Squamous Epith Cells Urine Bacteria Hyaline Casts Influenza Type A (PCR) Influenza Type B (PCR) RSV RNA Qual (PCR) SARS-CoV-2 RNA (RT-PCR) 09/23/24 12:02 WBC RBC Hgb Hct MCV MCH MCHC RDW Plt Count MPV Immature Gran % (Auto) Neut % (Auto) Lymph % (Auto) [place] % (Auto) Eos % (Auto) Baso % (Auto) Lymph # (Auto) [place] # (Auto) Eos # (Auto) Baso # (Auto) Abs Immat Gran (auto) Absolute Neuts (auto) Absolute Nucleated RBC Nucleated RBC % (auto) Smear Tech's Comments Hold Purple Top VBG pH VBG pCO2 VBG pO2 VBG HCO3 VBG O2 Saturation VBG Base Excess Sodium Potassium Chloride Carbon Dioxide Anion Gap BUN Creatinine Estim Creat Clear Calc Estimated GFR POC Glucose 130 H Random Glucose Lactic Acid Calcium Phosphorus Magnesium Total Bilirubin AST ALT Alkaline Phosphatase Troponin I High Sens B-Natriuretic Peptide Total Protein Albumin Urine Color Urine Appearance Urine pH Ur Specific [place] Protein Urine Glucose (UA) Urine Ketones Urine Blood Urine Nitrite Ur Leukocyte Esterase Urine RBC Urine WBC Ur Squamous Epith Cells Urine Bacteria Hyaline Casts Influenza Type A (PCR) Influenza Type B (PCR) RSV RNA Qual (PCR) SARS-CoV-2 RNA (RT-PCR) Microbiology Microbiology Results: Microbiology 09/22/24 Unknown Urine clean catch - Clean Catch Midstream Urine Culture - Final No growth. Progress Note: A&P Assessment and plan (1) Essential hypertension: Status: Acute (2) Acute kidney injury: Status: Acute (3) Diabetic ketoacidosis: Status: Acute Plan Neuro: Acute encephalopathy possibly due to metabolic encephalopathy, has significant underlying dementia We will get MRI of the brain to rule out other etiologies Close neurological status monitoring Hypertension: Continue metoprolol 100 mg Atrial fibrillation: On amiodarone for rhythm control On metoprolol for rate control On Xarelto for anticoagulation GI: NPO until gap closes Renal: Acute kidney injury possibly secondary to volume depletion, improving with volume correction. Creatinine down to 1.50 today from 1.86 yesterday. Baseline creatinine is about 0.9-1.0 We will closely monitor I's and O's Avoid nephrotoxic medications Heme: Chronic anemia, closely monitor H&H, transfuse for hemoglobin less than 7 grams/deciliter Endocrine: Diabetic ketoacidosis: Currently on insulin drip, titrate with q.1 hour blood sugars. On D5 LR for fluid, rate increased to 100 cc given blood sugars on the lower side Monitor BMP, Mag, phos every 4 hours. We will turn off the insulin drip after switching to subcu insulin after the gap closes twice Infectious disease: Pancultures negative so far On empiric Zosyn for possible aspiration pneumonia Musculoskeletal: Decubitus ulcer prevention protocol Lines: Peripheral Prophylaxis: Xarelto, pantoprazole Quality Stroke Does the patient have a stroke diagnosis?: No VTE Prior VTE?: No VTE Risk Level:: Medical - moderate - high VTE Device Contraindication: Treatment Not Indicated VTE Drug Contraindication: N/A - Med Ordered
[2024-09-23 13:06] LABS: Glucose, Whole Blood 128 mg/dL (60-115)
[2024-09-23 13:29] LABS: Anion Gap 13 (12-20); Blood Urea Nitrogen 37 mg/dL (9-16); Calcium 8.8 mg/dL (8.4-10.2); Carbon Dioxide 28 mmol/L (22-29); Chloride 101 mmol/L (96-108); Creatinine Clr Calc Pharmacy 26.2; Estimated Glomerular Filt Rate 37; Glucose Random 120 mg/dL (60-115); Potassium 3.9 mmol/L (3.3-5.1); Sodium 138 mmol/L (135-145)
[2024-09-23 14:06] LABS: Glucose, Whole Blood 122 mg/dL (60-115)
[2024-09-23] MEDS: Insulin Glargine,Hum.rec.anlog 100 UNIT/ML 10 ML VIAL 10 UNIT SUBCUT (14:23)
--- NOTE | 2024-09-23 14:42 | MHC.SL.SWA ---
Risk of Aspiration Due to: cognition Dysphasia Diet Status: upgrade Liquid Consistency and Strategies for Safe Swallow: Liquid Intake Recommendation: Thin Solid Food Consistency: Dietary Recommendations: Pureed (NDD1) Oral Medication Intake: Crushed with Puree Please contact the pharmacy regarding appropriate crushable or liquid drug formulations that are available whenever modified delivery is recommended. Supervision While Eating and Drinking for Safe Swallow: Total Assistance (1:1) Recommendation for Speech: Inpatient Speech Therapy Comment: Recommend UPGRADE to PUREE solids (NDD1), THIN liquids, pills CRUSHED in PUREE w/ 1-1 ASSISTANCE. Pt demonstrating biting hard on plastic utensils; concern for breaking plastic utensils. Recommend continued dysphagia tx at next level of care should pt not be returned to baseline diet. Frequency/Duration: daily Stave Cutting Supervisor Clinican/Clinical Fellow: No Supervisory Statement: I have reviewed and agree with the student/clinical fellow's documentation: N/A Speech Language Pathologist: Randa Santos M.A., CCC-TECHNICAL SUPPORT INTERN
[2024-09-23 15:20] LABS: Glucose, Whole Blood 210 mg/dL (60-115)
[2024-09-23 16:55] LABS: Glucose, Whole Blood 181 mg/dL (60-115)
[2024-09-23] MEDS: Insulin Lispro 100 UNIT/ML 3 ML VIAL SUBCUT (18:05)
[2024-09-23] MEDS: busPIRone HCl 5 MG TABLET 2.5 MG PO (18:06)
[2024-09-23] MEDS: Rivaroxaban 20 MG TABLET PO (18:06)
--- NOTE | 2024-09-23 18:13 | PC.NURSE ---
Lyons catheter removed at 1630, patient due to void by 2230
[2024-09-23] MEDS: Acetaminophen 325 MG TABLET 975 MG PO (19:36)
[2024-09-23] MEDS: Furosemide 20 MG TABLET PO (19:37)
[2024-09-23] MEDS: Melatonin 3 MG TABLET 6 MG PO (19:37)
[2024-09-23 20:23] LABS: Glucose, Whole Blood 145 mg/dL (60-115)
[2024-09-24] MEDS: Piperacillin Sodium/Tazobactam 3.375 GM in 0.9 % Sodium Chloride 50 ML IV ×2 (00:21→06:13)
[2024-09-24 02:56] VITALS: BP 142/72; PULSE 84; RESP 16; TEMP 36.7
[2024-09-24] MEDS: Omeprazole 20 MG CAPSULE.DR PO (06:11)
[2024-09-24] MEDS: Levothyroxine Sodium 150 MCG TABLET PO (06:11)
[2024-09-24 06:24] LABS: MANUAL DIFF FLAG NO
[2024-09-24 06:36] LABS: Basophils Absolute Auto 0.1 X10*3/uL (0.0-0.2); Basophils Percent Auto 0.8 % (0-2); Eosinophils Absolute Auto 0.2 X10*3/uL (0.0-0.4); Eosinophils Percent Auto 1.6 % (0-4); Hematocrit 36.5 % (37.0-47.0); Hemoglobin 12.2 g/dl (12.0-16.0); Imm Gran Abs Auto 0.06 X10*3/uL (0.00-0.03); Imm Gran Pct Auto 0.6 % (0.0-0.4); Lymphocytes Absolute Auto 1.6 X10*3/uL (1.2-4.9); Lymphocytes Percent Auto 15.6 % (20-40); Mean Corpuscular HGB Conc 33.4 g/dl (31.0-35.0); Mean Corpuscular Hemoglobin 31.2 pg (27.0-33.0); Mean Corpuscular Volume 93.4 fL (80.0-98.0); Mean Platelet Volume 10.4 fL (9.4-12.3); Monocytes Absolute Auto 0.9 X10*3/uL (0.1-1.2); Monocytes Percent Auto 8.6 % (2-11); Neutrophils Absolute Auto 7.6 x10*3/uL (2.0-8.3); Neutrophils Percent Auto 72.8 % (45-73); Platelet Count 327 X10*3/uL (160-400); Red Blood Count 3.91 X10*6/uL (4.20-5.50); Red Cell Distribution Width 17.4 % (11.0-16.0); White Blood Count 10.4 X10*3/uL (4.8-10.8)
[2024-09-24 06:47] LABS: Anion Gap 15 (12-20); Blood Urea Nitrogen 29 mg/dL (9-16); Calcium 9.3 mg/dL (8.4-10.2); Carbon Dioxide 29 mmol/L (22-29); Chloride 100 mmol/L (96-108); Creatinine Clr Calc Pharmacy 29.5; Estimated Glomerular Filt Rate 43; Glucose Random 103 mg/dL (60-115); Potassium 3.8 mmol/L (3.3-5.1); Sodium 140 mmol/L (135-145)
[2024-09-24 07:30] LABS: Glucose, Whole Blood 95 mg/dL (60-115)
[2024-09-24 08:00] VITALS: BP 170/72; PULSE 94; RESP 16; TEMP 36.5; O2SAT 97
[2024-09-24] MEDS: Furosemide 20 MG TABLET PO (08:48)
[2024-09-24] MEDS: Acetaminophen 325 MG TABLET 975 MG PO (08:49)
[2024-09-24] MEDS: Amiodarone HCL 200 MG TABLET PO (08:49)
[2024-09-24] MEDS: Metoprolol Succinate ER 100 MG TAB.ER.24H PO (08:50)
[2024-09-24] MEDS: Cholecalciferol (Vitamin D3) 25 MCG TABLET PO (08:50)
[2024-09-24] MEDS: 0.9 % Sodium Chloride Flush 3 ML SYRINGE IVFLUSH (08:51)
[2024-09-24] MEDS: Sennosides/Docusate Sodium TABLET 1 TAB PO (08:53)
--- NOTE | 2024-09-24 10:50 | MHC.CM.PN ---
Per MD in [facility], Patient is medically cleared for dc to LTC today.Patient will return to LTC @ [facility] today at 1PM, via [facility]. CM spoke with Daughter/HCP/Yue @ and informed her of the dc plan. Last IMM was addressed yesterday.
[2024-09-24 11:42] LABS: Glucose, Whole Blood 156 mg/dL (60-115)
[2024-09-24] MEDS: Insulin Lispro 100 UNIT/ML 3 ML VIAL SUBCUT (11:47)
--- NOTE | 2024-09-24 11:58 | P.DS_ITS ---
DS: Providers Provider Date of Service: 09/24/24 Date of admission: 09/22/24 14:32 Date of discharge: 09/24/24 Primary care physician: Unknown Physician DS: Diagnosis Discharge Diagnosis (1) Essential hypertension: Status: Acute (2) Acute kidney injury: Status: Acute (3) Diabetic ketoacidosis: Status: Acute (4) Aspiration into airway: Status: Acute (5) Congestive heart failure: Status: Acute (6) Acidosis, lactic: Status: Acute (7) Encephalopathy: Status: Acute DS: Summary Hospital Course Hospital Course: Admission note HPI an 89-year-old female currently residing at [facility] with PMH of hypertension, UTI, hyperlipidemia, atrial fibrillation on anticoagulation, dementia, systolic and diastolic heart failure, hypothyroidism, insulin- dependent diabetes mellitus, chronic constipation, dry macular degeneration, and JADYN not on CPAP presents to the emergency room department secondary to altered mental status and aspiration incident. The patient has been on treatment of Urine infection recently but has been gettign weaker with decreased oral intake. this morning she was noted to vomit after breakfast and had signs of aspiration so brought to ED. The patient was found to be in altered mentation with worsening kidney fucntion and lactic acidosis. seems all related to dehydration from decreased oral intake. admitted for further work up and management. Hospital course The patient was admitted for treatment of Aspiration pneumonia as CXR showing right sided changes treated with IV Zosyn and IV steroids that was stopped as her blood sugar went significantly high to DKA. She improved with antibiotics and weaned off O2. ELECTRICIAN evaluated her and recommended Pureed diet with aspiration precautions. to be discharged on 5 more days of Augment and continue aspiration precautions as blood cultures remained negative. For Acute metabolic encephalopathy it was likely from infection and medications along with history of advanced dementia. Held Mirtazapine and Gabapentin along with Fexofenadine with good response. She was also noted to have JAZ on CKD3 with Cr of 1.9 from normal baseline. improved back to 1.1 at time of discharge after IV fluids. Acute lactic acidosis. likely from renal failure, improved with fluids Hyperglycemia in DMII complicated with DKA requiring ICU admission for IV fluids and IV insulin drip. anion gap closed and patient restarted on diabetic diet. blood sugar remained controlled. Continue SSI and Lantus at discharge. Discharge plan Aspiration precautions Stop Fexofenadine, Gabapentin and Zyvox Change Xarelto to 15 from 20 mg Continue Augmentin for 5 more days Mirtazapine as needed for insomnia Time Attestation Discharge Coordination Time (in mins): 41 Quality: Safe Use of Opioids Does Pt have an Active Cancer Diagnosis on the Problem List?: No Quality: Stroke Does the patient have a stroke diagnosis?: No Physical Exam Vital Signs: Vital Signs: Last Vital Signs Temp 97.7 F 09/24/24 08:00 Pulse 94 09/24/24 08:00 Resp 16 09/24/24 08:00 BP 170/72 H 09/24/24 08:00 Pulse Ox 97 09/24/24 08:00 O2 Del Method Room Air 09/24/24 08:00 BMI result Body Mass Index 25.2 Const: Other: Constitutional : Awake, interactive, not in distress Neck : Normal inspection, Supple Cardiovascular : RRR, no JVP, no lower extremity edema Respiratory : good bilateral air entry, basal right sided crackles Gastrointestinal: soft, lax, Normal bowel sounds, Non tender Skin : Warm, Dry Neurological : Alert but confused, No focal deficit DS: Data Data Completed and Pending Completed studies during hospitalization [Text1]: Procedures Introduction of Remdesivir Anti-infective into Peripheral Vein, Percutaneous Approach, [employer] 5 (08/17/21) Reposition Right Lower Femur with Intramedullary Internal Fixation Device, Percutaneous Approach (04/19/24) Yazdanism of Cardiac Rhythm, Single (06/01/20) Transfusion of Nonautologous Red Blood Cells into Peripheral Vein, Percutaneous Approach (04/19/24) Labs on day of discharge: Laboratory Results - last 24 hr 09/23/24 09/23/24 09/23/24 12:02 13:02 13:07 WBC RBC Hgb Hct MCV MCH MCHC RDW Plt Count MPV Immature Gran % (Auto) Neut % (Auto) Lymph % (Auto) Sevier % (Auto) Eos % (Auto) Baso % (Auto) Lymph # (Auto) Sevier # (Auto) Eos # (Auto) Baso # (Auto) Abs Immat Gran (auto) Absolute Neuts (auto) Absolute Nucleated RBC Nucleated RBC % (auto) Sodium 138 Potassium 3.9 Chloride 101 Carbon Dioxide 28 Anion Gap 13 BUN 37 H Creatinine 1.34 Estim Creat Clear Calc 26.2 Estimated GFR 37 POC Glucose 130 H 128 H Random Glucose 120 H Calcium 8.8 09/23/24 09/23/24 09/23/24 14:02 15:17 16:52 WBC RBC Hgb Hct MCV MCH MCHC RDW Plt Count MPV Immature Gran % (Auto) Neut % (Auto) Lymph % (Auto) Sevier % (Auto) Eos % (Auto) Baso % (Auto) Lymph # (Auto) Sevier # (Auto) Eos # (Auto) Baso # (Auto) Abs Immat Gran (auto) Absolute Neuts (auto) Absolute Nucleated RBC Nucleated RBC % (auto) Sodium Potassium Chloride Carbon Dioxide Anion Gap BUN Creatinine Estim Creat Clear Calc Estimated GFR POC Glucose 122 H 210 H 181 H Random Glucose Calcium 09/23/24 09/24/24 09/24/24 20:18 05:54 07:26 WBC 10.4 RBC 3.91 L D Hgb 12.2 D Hct 36.5 L D MCV 93.4 MCH 31.2 MCHC 33.4 RDW 17.4 H Plt Count 327 D MPV 10.4 Immature Gran % (Auto) 0.6 H Neut % (Auto) 72.8 Lymph % (Auto) 15.6 L Sevier % (Auto) 8.6 Eos % (Auto) 1.6 Baso % (Auto) 0.8 Lymph # (Auto) 1.6 Sevier # (Auto) 0.9 Eos # (Auto) 0.2 Baso # (Auto) 0.1 Abs Immat Gran (auto) 0.06 H Absolute Neuts (auto) 7.6 Absolute Nucleated RBC 0.000 Nucleated RBC % (auto) 0.0 Sodium 140 Potassium 3.8 Chloride 100 Carbon Dioxide 29 Anion Gap 15 BUN 29 H Creatinine 1.19 Estim Creat Clear Calc 29.5 Estimated GFR 43 POC Glucose 145 H 95 Random Glucose 103 Calcium 9.3 09/24/24 11:23 WBC RBC Hgb Hct MCV MCH MCHC RDW Plt Count MPV Immature Gran % (Auto) Neut % (Auto) Lymph % (Auto) Sevier % (Auto) Eos % (Auto) Baso % (Auto) Lymph # (Auto) Sevier # (Auto) Eos # (Auto) Baso # (Auto) Abs Immat Gran (auto) Absolute Neuts (auto) Absolute Nucleated RBC Nucleated RBC % (auto) Sodium Potassium Chloride Carbon Dioxide Anion Gap BUN Creatinine Estim Creat Clear Calc Estimated GFR POC Glucose 156 H Random Glucose Calcium Preliminary micro results at discharge 09/22/24 12:46 Blood Culture - Preliminary Blood - Venous No growth after 24 hours. 09/22/24 12:39 Blood Culture - Preliminary Blood - Venous No growth after 24 hours. Imaging Chest x-ray: Radiologist's impression: ITS Impressions Chest X-Ray 09/22/24 11:29 IMPRESSION: Mild interstitial lung edema likely small right-sided pleural effusion. Superimposed acute inflammatory process cannot be excluded. Cardiomegaly versus pericardial effusion. Electronically signed by: Jose L Cisneros MD 09/22/2024 12:56 PM EDT Discharge Plan Discharge Anticipated Discharge Date/Time: 09/24/24 11:49 Patient Disposition: Xfer LT Discharge Diagnosis: Aspiration pneumonia Altered mentation Referrals: Victorina Powell [Outside] - 1 Week Physician,Dena J [Primary Care Provider, Medical] - 1 Week Discharge Medications: New Xarelto 15 mg Tablet 15 mg PO DAILY@1700 Qty: 90 0RF amoxicillin-pot clavulanate 400-57 mg/5 mL suspension for reconstitution 5 ml PO BID 5 Days Qty: 50 0RF Continued cholecalciferol (vitamin D3) 25 mcg (1,000 unit) capsule 25 mcg PO DAILY (DME) FreeStyle Madeline 14 Day Sensor Kit See Rx Instructions .ROUTE .MEDSUPPLY Qty: 1 6RF Rx Instructions: Dx: E11.65 As directed, 14 days (DME) FreeStyle Madeline 14 Day Sensor Kit See Rx Instructions .Route Qty: 6 3RF Rx Instructions: As directed amiodarone 200 mg tablet 200 mg PO DAILY 90 Days Qty: 90 2RF lactulose 10 gram/15 mL solution 30 ml PO DAILY PRN (Reason: for constipation) Qty: 946 0RF simvastatin 10 mg tablet 10 mg PO BEDTIME Qty: 90 0RF metoprolol succinate 100 mg tablet extended release 24 hr 100 mg PO DAILY 90 Days Qty: 90 0RF travoprost 0.004 % drops 1 drp ophthalmic (eye) BEDTIME acetaminophen 500 mg Tablet 1,000 mg PO TID insulin lispro [Humalog KwikPen Insulin] 100 unit/mL insulin pen 1 sliding scale dose subcut TIDAC Rx Instructions: 0-99 = no insulin 100-150 = 2 units 151 - 200 = 3 units 201 -250 = 4 units 251 - 300 = 5 units 301 - 350 = 7 units 351 - 400 = 8 units 401 - 450 = 10 units 451- 500 = 11 units 501 + = 15 units sennosides-docusate sodium [Senna with Docusate Sodium] 8.6-50 mg Tablet 1 tab-cap PO BID levothyroxine 150 mcg Tablet 150 mcg PO DAILY@0600 PreserVision AREDS-2 250-90-40-1 mg Capsule 1 tab PO DAILY magnesium hydroxide [Milk of Magnesia] 400 mg/5 mL Suspension 30 ml PO DAILY PRN (Reason: Constipation) bisacodyl 10 mg Suppository 10 mg NJ DAILY PRN (Reason: Constipation) Fleet Enema 19-7 gram/118 mL Enema 118 ml NJ DAILY PRN (Reason: Constipation) metoprolol tartrate 25 mg Tablet 25 mg PO BEDTIME PRN (Reason: SBP > 150) insulin glargine U-300 conc [Toujeo SoloStar U-300 Insulin] 300 unit/mL (1.5 mL) insulin pen 10 unit subcut DAILY Qty: 4.5 0RF Rx Instructions: or as directed buspirone 5 mg Tablet 2.5 mg PO DAILY@1900 ipratropium-albuterol 0.5 mg-3 mg(2.5 mg base)/3 mL Solution For Nebulization 3 ml INHALATION Q6H PRN (Reason: Non-Productive Cough) guaifenesin 400 mg Tablet 400 mg PO Q6H PRN (Reason: Cough/Nasal Congestion) furosemide 20 mg tablet 20 mg PO BID Rx Instructions: 20 mg orally daily at 2 pm for 5 days only calcitriol 0.25 mcg capsule 0.25 mcg PO Q48H (DME) pen needle, diabetic [BD Eveline 2nd Gen Pen Needle] 32 gauge x 5/32 needle See Rx Instructions .ROUTE .COMPLEX Qty: 400 3RF Dose Instruction: USEN TO INJECT INSULIN FOUR TIMES DAILY Rx Instructions: USEN TO INJECT INSULIN FOUR TIMES DAILY melatonin 5 mg capsule 5 mg PO BEDTIME PRN (Reason: insomnia) Changed mirtazapine 7.5 mg Tablet 7.5 mg PO DAILY@1900 PRN (Reason: Insomnia) Qty: 30 0RF Discontinued fexofenadine 60 mg Tablet 60 mg PO DAILY linezolid 600 mg Tablet 600 mg PO Q12H Rx Instructions: ORDERED FROM 09/19/24 TO 09/27/24 gabapentin 100 mg capsule 100 mg PO BID Xarelto 20 mg tablet 20 mg PO DAILY@1700 Discharge Orders: Discharge Order (Routine); Ordered 09/24/24 Ordered By: Pricilla Mas Diet: Pureed soft diabetic diet Activity on Discharge: As tolerated Stand Alone Forms: Patient Portal Discharge page Print Language: Liberian Care Plan Goals: Aspiration precautions Stop Fexofenadine, Gabapentin and Zyvox Change Xarelto to 15 from 20 mg Continue Augmentin for 5 more days Mirtazapine as needed for insomnia Health Concerns: Aspiration pneumonia Plan of Treatment: Antibiotics Assessment: as above
[2024-09-24 12:00] VITALS: BP 150/82; PULSE 91; RESP 17; TEMP 36.2; O2SAT 96
--- NOTE | 2024-09-24 12:07 | MHC.SLORD ---
Speech Language Pathology Order Status: Pt resting comfortably, politely refusing PO. RN consulted, noted pt tolerated a sandwich yesterday. Pt currently on pureed diet with thin liquids. SN at [facility] contacted to coordinate d/c plan: recc FIELD INSPECTOR at facility re-assess for diet advance as pt is being d/c'd back to facility today. SN confirmed pt was on chopped diet at baseline, agreed with rec for re-eval by FIELD INSPECTOR at facility.
--- NOTE | 2024-09-24 12:35 | PC.NURSE ---
handoff report given to JARVIS grace at [facility] @ [phone]
== END 2024-09-24 14:07 | disposition home or self-care (01) | DRG 637 ==
LOC: HO.ED 14:16 → HO.EDOVER 14:40 → HO.S3 19:32 → HO.ICU 22:48 → HO.IMC 09-23 16:08
PROVIDERS: Hospitalist; Internal Medicine Critical Care Medicine; Physician Assistant Medical; Admitting Provider Student in an Organized Health Care Education/Training Program; Emergency Provider Emergency Medicine; PCP Internal Medicine; Visit Provider Student in an Organized Health Care Education/Training Program
DX: E11.10 Type 2 diabetes mellitus with ketoacidosis without coma (principal); G93.41 Metabolic encephalopathy; J69.0 Pneumonitis due to inhalation of food and vomit; I13.0 Hypertensive heart and chronic kidney disease with heart failure and stage 1 through stage 4 chronic kidney disease, or unspecified chronic kidney disease; I50.42 Chronic combined systolic (congestive) and diastolic (congestive) heart failure; N39.0 Urinary tract infection, site not specified; E87.1 Hypo-osmolality and hyponatremia; N17.9 Acute kidney failure, unspecified; F03.90 Unspecified dementia, unspecified severity, without behavioral disturbance, psychotic disturbance, mood disturbance, and anxiety; Z66 Do not resuscitate; E03.9 Hypothyroidism, unspecified; D63.1 Anemia in chronic kidney disease; E86.1 Hypovolemia; N18.30 Chronic kidney disease, stage 3 unspecified; E11.22 Type 2 diabetes mellitus with diabetic chronic kidney disease; Z87.891 Personal history of nicotine dependence; Z79.4 Long term (current) use of insulin; Z79.890 Hormone replacement therapy; Z79.899 Other long term (current) drug therapy
CPT/HCPCS: 0241U; 36415; 71045; 80048; 80053; 81001; 82803; 82947; 83605; 83735; 83880; 84100; 84484; 85025; 87040; 87086; 92610; 93005; 99285; J2543; J2919; J7120; P9047

== ENCOUNTER → 2024-09-22 11:29 | Outpatient (BNV) | payer MEDICARE, SELFPAY | PROVIDERS: Emergency Provider Emergency Medicine; Visit Provider Radiology Diagnostic Radiology | DX: R07.9 Chest pain, unspecified (principal) | CPT/HCPCS: 71045 ==

== ENCOUNTER → 2024-09-22 11:43 | Outpatient (BNV) | payer MEDICARE, SELFPAY | PROVIDERS: Admitting Provider Student in an Organized Health Care Education/Training Program; Emergency Provider Emergency Medicine; Visit Provider Internal Medicine Cardiovascular Disease | DX: I48.91 Unspecified atrial fibrillation (principal); I51.7 Cardiomegaly; Z95.0 Presence of cardiac pacemaker | CPT/HCPCS: 93010 ==

== ENCOUNTER → 2024-09-22 14:32 | Outpatient (BNV) | payer MEDICARE, SELFPAY | PROVIDERS: Admitting Provider Student in an Organized Health Care Education/Training Program; Emergency Provider Emergency Medicine; Visit Provider Student in an Organized Health Care Education/Training Program | DX: E11.10 Type 2 diabetes mellitus with ketoacidosis without coma (principal); I10 Essential (primary) hypertension; N17.9 Acute kidney failure, unspecified; T17.908A Unspecified foreign body in respiratory tract, part unspecified causing other injury, initial encounter; I50.9 Heart failure, unspecified; E87.20 Acidosis, unspecified; G93.40 Encephalopathy, unspecified | CPT/HCPCS: 99223; 99239 ==

== ENCOUNTER → 2024-09-22 14:32 | Outpatient (BNV) | payer MEDICARE, SELFPAY | PROVIDERS: Admitting Provider Student in an Organized Health Care Education/Training Program; Emergency Provider Emergency Medicine; Visit Provider Physician Assistant Medical | DX: E11.10 Type 2 diabetes mellitus with ketoacidosis without coma (principal); N17.9 Acute kidney failure, unspecified; I10 Essential (primary) hypertension | CPT/HCPCS: 99291 ==

== ENCOUNTER 2024-11-26 10:12 | Outpatient (REF) | payer MEDICARE, SELFPAY ==
--- OUTSIDE RECORDS SUMMARY | 2024-08-08 06:00 | XMS_ITS ---
Author Organization [facility] Address [address] [place] [address] Care Team Providers Care Doggy Daycare Activities Director Name Role Phone Monique White Primary Care Provider Unavailabl Arturo Hoyos Unavailable [phone] Hernandez Encounters Encounter Location Date Provider Diagnosis [address] [address] 08/08/2024 Arturo Simon Plan Of Treatment Next Appt Details Provider Name:Arturo Simon , 11/28/2024 11:15:00 AM, [address] [place], [address], Progress Notes * EFRENGerri RDOB:[birth year] (89 yo F)Acc No.[id number]:08/08/2024 Progress Note Patient: Gerri MELO Provider: Mook Simon DPM :1935 A ge:88 Y S ex:Female Date:08/08/2024 Address: [id number] Pcp:Monique White Subjective: * Chief Complaints: * [...] 0 08/08/2024 Generated for Awilda diggs/Ac on: 0 11/26/2024 11:24 AM EDT
--- NOTE | ~2024-11-26 | CT_ITS ---
EXAMINATION: CT CHEST WITHOUT CONTRAST CLINICAL INFORMATION: Hyperlipidemia, right pleural effusion COMPARISON: Chest x-ray September 22, [address] on July 11, 2024 TECHNIQUE: Multidetector volumetric CT imaging of the chest was done. Axial MIP volume rendering provided. Sagittal and coronal reformatted images were obtained. This CT examination was performed using dose optimization techniques as appropriate, variously including the following: *Automated exposure control *Adjustment of mA and/or kV according to patient size (this includes techniques or standardized protocols for targeted exams where dose is matched to indication/reason for exam; i.e. extremities or head) *Use of iterative reconstruction technique DLP: 213 mGY*cm FINDINGS: LUNGS: There is mildly increased compressive atelectasis caused by pleural effusion on the right primarily involving right lower lobe and right middle lobe. There is minimal compressive atelectasis on the left resulting from a pleural effusion. Small focal area of probable subsegmental atelectasis is slightly increased in the inferior lingular segment. MEDIASTINUM: The mediastinum is unremarkable. Moderate vascular calcifications are present in thoracic aorta Cardiac size is enlarged. CORONARY ARTERY CALCIFICATION: Present and dense PLEURA: Moderate right pleural effusion is increased since prior. Small layering pleural effusion on the left is stable. AXILLA: No lymphadenopathy. UPPER ABDOMEN: Unremarkable. OSSEOUS STRUCTURES: Multilevel degenerative changes are noted with moderate to severe disc space narrowing, endplate osteophytes, and vacuum phenomenon within the disc levels. CT/CT chest wo IV con IMPRESSION: Moderate pleural effusion has mildly increased since the prior examination. Adjacent compressive atelectasis is also mildly increased. Small left layering pleural effusion and minimal compressive atelectasis is stable. Cardiomegaly. Fleischner guidelines were followed. Electronically signed by: Malik Carrion MD 11/26/2024 12:09 PM EDT
--- OUTSIDE RECORDS SUMMARY | 2024-11-26 11:24 | XMS_ITS | Encounter Summary ---
Author Organization [facility] Address [address] [place] [address] Care Team Providers Care Shank Threader Name Role Phone Torrey Kwok MD Primary Care Provider [phone] Encounter Details Date Type Department Care Team (Late st Contact Info) Description 09/17/[address] [facility] [address] [facility] [place] [address] Torrey Kwok MD [address] [place], [place] [id number] Type 2 diabetes mellitus without complications (CMS/HCC V24, CMS/[facility] V28) Social History Tobacco Use Types Packs/Day [...] Procedure Name Priority Date/Time Associated Diagnosis Comments HEMOGLOBIN A1C Routine 09/17/2024 5:53 AM EDT Type 2 diabetes mellitus without complications (CMS/HCC V24, CMS/[facility] V28) documented in this encounter Results * (ABNORMAL) Hemoglobin A1c (09/17/2024 5:53 AM EDT) Hemoglobin A1C 9.8(H) <6.5 % LAB CHEMISTRY METHOD 09/17/2024 12:18 PM [facility] Mean Bld Glu Estim. 235 mg/dL LAB CHEMISTRY METHOD 09/17/2024 12:18 PM [facility] Blood Venous blood specimen / Unknown Venipuncture / Unknown 09/17/2024 5:53 AM EDT 09/17/2024 8:55 AM EDT Torrey Kwok MD LAB BLOOD ORDERABLES Final Resul t [facility] [address] [place] [address], documented in this encounter Visit Diagnoses Diagnosis Type 2 diabetes mellitus without complications (CMS/HCC V24, CMS/HCC V28) documented in this encounter Care Teams Shank Threader Relationship Specialty Start Date End Date Torrey Kwok MD [address] [place] [address] [address] [place] [address] PCP - General Geriatric Medicine 04/25/24 documented as of this encounter
--- OUTSIDE RECORDS SUMMARY | 2024-11-26 11:24 | XMS_ITS | Encounter Summary ---
Author Organization [facility] Address [address] [place] [address] Phone Care Team Providers Care Professional Security Officer Name Role Phone Monique White MD Primary Care Provider [phone] Encounter Details Date Type Department Care Team (Late st Contact Info) Description 06/07/2021 Telephone [facility] [address] [place] [address] Sohail Penaloza MD Social History [...] with you. Please call her back at [phone] Thank you documented in this encounter Plan of Treatment Not on file documented as of this encounter Visit Diagnoses Not on filedocumented in this encounter Care Teams Professional Security Officer Relationship Specialty Start Date End Date Monique White MD [facility] [address] NBA LAR[place] PCP - General Internal Medicine 03/11/21 documented as of this encounter
--- OUTSIDE RECORDS SUMMARY | 2024-11-26 11:24 | XMS_ITS | Encounter Summary ---
Author Organization [facility] Address [address] [place] [address] Phone Care Team Providers Care Production Trainer Name Role Phone Monique White MD Primary Care Provider [phone] Sohail Penaloza MD Unavailable [phone] Alfred Guevara DPM, Erik Unavailable [phone] Reason for Visit * Reason Onset Date Comments Forms & Paperwork 11/20/2024 Encounter Details Date Type Department Care Team (Late st Contact Info) Description 11/20/2024 Telephone [facility] [address] [place], [place] [phone] Mattie Carrillo MD [address] [place] [phone] [email or web address] Forms & Paperwork Social History Tobacco Use Types Packs/Day Years [...] on file documented as of this encounter Progress Notes * Mattie Carrillo MD - 11/25/2024 1:30 PM EDT Rx sent NAPOLEON, pls do PA if needed * Mattie Carrillo MD - 11/25/2024 1:30 PM EDTAddended by: MATTIE CARRILLO on: 11/25/2024 01:30 PM Modules accepted: Orders * Sandi Shirley MA - 11/25/2024 1:27 PM EDT When I spoke with the daughter she didn't know Toujeo had a generic and pt has been getting brand name the whole time. * Mattie Carrillo MD - 11/25/2024 1:18 PM EDT My question is that has she been using the toujeo brand name? (Vs generic) * Sandi Shirley MA - 11/24/2024 12:26 PM EDT Called pts daughter, she states and PA is needed for this as she just brought in the forms during pts appointment to be done which are under the media tab. Pls advise and update daughter * Sandi Shirley MA - 11/21/2024 4:01 PM EDT Called daughter LVM X1 * Mattie Carrillo MD - 11/21/2024 3:53 PM EDT Pls check in w/ daughter, per MAC, they are ok with brand name toujeo, we just need to send NAPOLEON. ? Is she ok with this? * Raoul Carrasquillo - 11/21/2024 3:47 PM EDTAddended by: RAOUL CARRASQUILLO on: 11/21/2024 03:47 PM Modules accepted: Orders * Raoul Carrasquillo - 11/21/2024 3:42 PM EDT IMPORTANT - At least one Rx mismatch identified. Original(s) may be discontinued, , or different strength/form. Review required. Rx Care Gap Status - Instructions for Clinical Staff (prescriber discretion applies): > Mismatch review guide > At least one request does not meet full criteria. Specifics below. > Labs due: Please remind patient. > Orders needed: Click OPA and Accept to open SmartSet. A1c - Needs order * BMP - Needs order * Lipid panel - Needs order * Urine Microalbumin - Needs order * Visit Info Last visit: 09/16/2024 Felicita Morgan PA-C - Endocrinology [facility] > Requested f/u: Return in about 3 months (around 12/17/2024). Upcoming visit: 12/16/2024 Felicita Morgan PA-C - Endocrinology [facility] ACTIONS TAKEN BY Raoul Carrasquillo - Labs needed - Teed up orders and/or reminded pt. - Per document in patient's media tab, insurance prefers brand name toujeo. Pended new Rx for NAPOLEON 1 Diabetes Rx Protocol (on Diabetes Registry) - insulin glargine,hum.rec.anlog Rx mismatch - Original discontinued, , or different strength/form. Criteria for reference: Visit in the past 14 months: Yes Clinical criteria: - BMP within past year: No - A1c within past 6 months: No - Lipid panel within past year: No (No prior value) - Urine microalbumin within past year or on DEBBIE/ARB: No Lab Results Component Value Date SODIUM 139 07/14/2022 POTASSIUM 4.4 07/14/2022 CHLORIDE 99 07/14/2022 CO2 30 07/14/2022 BUN 31 (H) 07/14/2022 CREATININE 1.30 07/14/2022 EGFR 40 (L) 07/14/2022 Lab Results Component Value Date CREATININE 1.30 07/14/2022 CREATININE 1.50 09/22/2020 EGFR 40 (L) 07/14/2022 EGFR 32 (L) 09/22/2020 Lab Results Component Value Date HEMOGLOBIN A1C 9.2 (H) 07/14/2022 Health Maintenance Labs Due / Due Soon Topic Date Due LIPID PANEL Never done ALT LEVEL (ALANINE AMINOTRANSFERASE) 07/15/2023 CREATININE LEVEL 07/15/2023 HEMOGLOBIN A1C 07/24/2024 * Sandi Shirley MA - 11/21/2024 7:48 AM EDT This is in media, sending to [facility] * Mattie Carrillo MD - 11/20/2024 4:39 PM EDT This should go to [facility] for PA; put on Sandi's desk * Pebbles Jennings - 11/20/2024 4:24 PM EDT Paitient dropped off forms to be read by so she can follow directions in order for patient's insurance to cover the insulin/Toujeo. Please call patient's daughter if you need to further discuss. Will scan into chart and place in provider's mailbox. documented in this encounter Plan of Treatment Upcoming Encounters Date Type Department Care Team (Late st Contact Info) Description 12/16/2024 10:40 AM EDT Office Visit [facility] [address] [place] [address] Felicita Morgan PA-C [address] [place] [address] 03/25/2025 10:20 AM EST Office Visit [facility] [address] [place] [address] Mattie Carrillo MD [address] [place] [address] 06/18/2025 11:00 AM EDT Office Visit [facility] [address] [place] [address] Mattie Carrillo MD [address] [place] [phone] documented as of this encounter Visit Diagnoses Diagnosis 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 It is not the complete legal health record.[facility]
--- OUTSIDE RECORDS SUMMARY | 2024-11-26 11:24 | XMS_ITS | Patient Health Record ---
Author Organization [facility] Address [address] [place] [address] Care Team Providers Care Physician Assistant Name Role Phone Po Monique HODGE Primary Care Provider John [place] Jr Unavailable [phone] Allergies Allergen (clinical drug ingredient) Drug/Non Drug [...] Active Omeprazole 20 TAKE 1 CAPSULE BY [facility] TWICE DAILY for 90 days Active Immunizations Vaccine Route Administration Date Status Comme nts Influenza Unknown 02/08/2016 Administered Influenza Unknown 02/07/2018 Administered Problems Problem Type SNOMED Code ICD Code Onset Dates Problem Status W/U Status Risk Notes Problem 538785847 Gastro-esophagea l reflux disease without esophagitis (K21.9) Active confirmed Problem 16995071 Dysphagia, unspecified type (R13.10) Active confirmed Problem 596594824 Abnormal UGI series (R93.3) Active confirmed Problem 19240572 Hypertension, unspecified type (I10) Active confirmed Plan Of Treatment Pending Test Test Name Order Date XR GI SERIES 07/20/2016 Insurance Providers Payer Name Payer Address Payer Phone Subscriber Number Group Number Insured Name Patient Relationship to Insured Coverage Start Date Coverage End Date MEDICARE OF [place] [address] [place] [address] [phone] [id number] CHARLY SCHWARTZ Self - patient is the insured [employer] ATT[employer] CLAIMS [address] [place] [address] [id number] CHARLY SCHWARTZ Self - patient is the insured Medical (General) History Medical History History ICD Code colonoscopy 03/25/2004 diabetes mellitus osteoporosis Hypothyroidism elevated cholesterol hypertension diverticulosis internal hemorrhoids congestive heart failure urinary incontinence-mild Surgical History Surgery Date(Month/Year) cholecystectomy knee surgery section left hip replacement right knee replacement cardioversion 12/2015
== END 2024-11-26 10:13 | disposition home or self-care (01) ==
LOC: HO.CT 10:12
PROVIDERS: PCP Internal Medicine; Visit Provider Family Medicine Geriatric Medicine
DX: J90 Pleural effusion, not elsewhere classified (principal); R93.89 Abnormal findings on diagnostic imaging of other specified body structures; E78.5 Hyperlipidemia, unspecified
CPT/HCPCS: 71250

== ENCOUNTER → 2024-11-26 10:16 | Outpatient (BNV) | payer MEDICARE, SELFPAY | PROVIDERS: PCP Internal Medicine; Visit Provider Radiology Diagnostic Radiology | DX: J90 Pleural effusion, not elsewhere classified (principal) | CPT/HCPCS: 71250 ==

== ENCOUNTER 2024-11-30 09:39 | Inpatient (IN) | payer MEDICARE, SELFPAY ==
[2024-11-30] VITALS (9 sets, daily range): BP systolic 146–200; BP diastolic 35–97; PULSE 71–82; RESP 14–20; TEMP 34.3–36.2; O2SAT 97–100; BMI 26.8; BMI 25.8
--- NOTE | ~2024-11-30 | CT_ITS ---
CLINICAL HISTORY: trauma CT cervical spine without contrast Comparison: 07/26/2024 Findings: For the head and chest findings please refer the same-day head and chest CT reports respectively. Stable alignment with mild grade 1 anterolisthesis at a few levels. No acute fracture. Unremarkable prevertebral soft tissues. Atherosclerotic calcifications. IMPRESSION: No acute fracture of the cervical spine This document has been electronically signed by: Julia Zaidi MD on 11/30/2024 12:15:52
--- NOTE | ~2024-11-30 | CT_ITS ---
CLINICAL HISTORY: trauma CT head without contrast Comparison: 07/26/2024 Findings: No intra-axial mass, midline shift, hydrocephalus, or acute hemorrhage. [id number] cerebral hemispheric white matter ischemic changes. Redemonstration of approximately 2.9 x 2.4 cm (axial plane dimensions) right cisterna magna arachnoid cyst. The visualized paranasal sinuses and mastoid air cells are normal. Bilateral cataract surgery. There is no acute fracture. IMPRESSION: 1. No acute intracranial findings. This document has been electronically signed by: Julia Zaidi MD on 11/30/2024 12:21:43
--- NOTE | ~2024-11-30 | CT_ITS ---
EXAMINATION: CT CHEST WITHOUT IV CONTRAST INDICATION: re-assess pleural effusion COMPARISON: Comparison is made with the prior examination dated 11/30/2024. TECHNIQUE: Helical CT scan of the chest was performed without intravenous contrast. Coronal and sagittal reformatted images were generated and reviewed. This CT exam was performed with one or more of the following dose reduction techniques: automated exposure control, adjustment of the mA and/or kV according to patient size, use of iterative reconstruction technique. DLP: 244 mGy-cm CHEST: THYROID: The thyroid is unremarkable. LUNGS: There is segmental atelectasis of the right upper lobe and complete atelectasis of the right lower lobe secondary to the previously noted pleural effusion. There is minimal subsegmental atelectasis at the left lung base. MEDIASTINUM: There is a 9 mm paratracheal lymph node without change. DAIN: Evaluation of the hilar regions is limited by lack of intravenous contrast material. CARDIOVASCULATURE: The heart is enlarged. There is no pericardial effusion. The thoracic aorta is normal in caliber. DEGREE OF CORONARY CALCIFICATION: severe PLEURA: Again seen is a moderate to large right pleural effusion which is not significantly changed in size. There is a tiny left pleural effusion which is slightly larger than on the prior study. No pneumothorax. MAIN AIRWAYS: The mainstem bronchi and proximal branches are patent. AXILLA: There is no axillary lymphadenopathy. BONES AND SOFT TISSUES: There is degenerative disc disease of the spine. UPPER ABDOMEN: The visualized portions of the liver, spleen, and adrenals have an unremarkable unenhanced appearance. CT/CT chest wo IV con IMPRESSION: 1. Moderate to large right pleural effusion without change. This causes subsegmental atelectasis of the right upper lobe and complete atelectasis of the right lower lobe, limiting evaluation for masses. 2. Tiny left pleural effusion. Electronically signed by: Akbar Denson MD 12/03/2024 10:40 AM EDT
--- NOTE | ~2024-11-30 | CT_ITS ---
CLINICAL HISTORY: trauma CT chest without contrast Comparison: 11/26/2024 Findings: Prominent/enlarged cardiac atria as before. Prominent right pretracheal node measuring up to 9 mm in short axis as before. Small thyroid gland. Nonprogressive small left basilar pleural-parenchymal opacity. No significant change in moderate right simple pleural effusion with neighboring atelectasis. New biapical septal thickening due to pulmonary edema. For the upper abdominal findings please refer to same-day abdomen CT report. Spinal degenerative changes. Query anemia. IMPRESSION: 1. Nonprogressive small left basilar pleural-parenchymal opacity. No significant change in moderate right simple pleural effusion with neighboring atelectasis. 2. New biapical septal thickening due to pulmonary edema. 3. Query anemia. This document has been electronically signed by: Julia Zaidi MD on 11/30/2024 11:56:48
--- NOTE | ~2024-11-30 | CT_ITS ---
CLINICAL HISTORY: trauma CT abdomen and pelvis without contrast Comparison: None provided Findings: For the lower chest refer to same-day chest CT report. Limited evaluation due to streak artifacts from inferior positioning of the upper extremitie, s as well as streak artifacts from right proximal femoral hardware and left hip arthroplasty. Partially lobulated hepatic contour. Query cirrhosis Gpjpmwsv-[id number]-taacxu pancreatic atrophy. Gallbladder not seen. Mild partial left adrenal gland hyperplasia. No urinary tract stone or hydronephrosis. Mild bilateral perinephric fluid/fat stranding may be age related/incidental finding. Colonic diverticulosis without diverticulitis. No bowel obstruction. Dense colonic contentsy may be due to prior oral contrast administration. Appendix not seen and therefore could not be evaluated. No evidence of inflammatory right lower quadrant fatty changes. Distended urinary bladder extending into the lower abdomen. Right femoral intertrochanteric/greater trochanteric, chronic fracture nonunion with up to 7 mm step-off medially, not significantly changed in alignment relative to the 07/09/2024 radiograph. No acute fracture. Decreased bone mineralization. Tgjv-es-whvspkhg chronic height loss of a few of the lower lumbar spine vertebral bodies. Lumbar spine degenerative changes. Severe fatty atrophy of portions of the left gluteal muscle. IMPRESSION: Distended urinary bladder extending into the lower abdomen. Query cirrhosis. 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 This document has been electronically signed by: Julia Zaidi MD on 11/30/2024 12:16:05
[2024-11-30 10:02] LABS: Glucose, Whole Blood 324 mg/dL (60-115)
--- NOTE | 2024-11-30 10:05 | ECG_ITS ---
Test Reason : FALL Blood Pressure : */* mmHG Vent. Rate : 69 BPM Atrial Rate : * BPM P-R Int : * ms QRS Dur : 116 ms QT Int : 484 ms P-R-T Axes : * -60 38 degrees QTcB Int : 518 ms Atrial fibrillation Left axis deviation Minimal voltage criteria for LVH, may be normal variant ( Riley product ) Anterior infarct (cited on or before 11-Jul-2024) Prolonged QT Abnormal ECG When compared with ECG of 22-Sep-2024 11:43, Questionable change in initial forces of Lateral leads Nonspecific T wave abnormality, worse in Lateral leads Referred By: Bruna Eastman Electronically Signed By: MAGI HIGHTOWER
--- NOTE | 2024-11-30 10:11 | PC.NURSE ---
89 F presents to ED after a fall [facility], unwitnessed out of bed, on thinners. A+Ox0, dementia. Pt will open eyes when asked, pupils reactive. RR even and unlabored, denies SOB or CP. On 3L NC at baseline. Pt c/o all over body pain. C-collar in place.
--- NOTE | 2024-11-30 10:22 | ED_ITS ---
HPI - Fall General Chief Complaint: Fall Stated Complaint: unwit fall, low back/neck pain, + jes[facility]s from SNF Time Seen by Provider: 11/30/24 09:53 Source: patient and EMS Mode of arrival: EMS Limitations: altered mental status History of Present Illness ED Provider: Bruna Eastman APRN HPI Narrative: 89 yo female brought in by ambulance from custodial with past medical history significant for dementia, AFib on amiodarone and Xarelto, T2 DM, HLD, CKD, COPD on 3 L NC chronically here after unwitnessed fall. During nursing report they heard a bang and found the patient laying next to her bed on the ground. Patient unable to provide history d/t baseline dementia. Limited exam. Related Data Home Medications ?Medication ?Instructions ?Recorded ?Confirmed travoprost 0.004 % eye drops 1 drp ophthalmic (eye) BE DTIME 06/01/20 11/30/24 acetaminophen 500 mg tablet 1,000 mg PO TID Pain 08/1711/30/24 cholecalciferol (vitamin D3) 25 25 mcg PO DAILY 11/30/24 mcg (1,000 unit) capsule insulin lispro 100 unit/mL 1 sliding scale dose subcut TIDAC 11/17/23 11/30/24 subcutaneous pen (Humalog KwikPen (U-100) Insulin) calcitriol 0.25 mcg capsule 0.25 mcg PO Q48H 04/20/24 11/30/24 melatonin 5 mg capsule 5 mg PO BEDTIME PRN insomnia 05/05/24 11/30/24 bisacodyl 10 mg rectal suppository 10 mg OH DAILY PRN Constipation 07/12/24 11/30/24 levothyroxine 150 mcg tablet 150 mcg PO DAILY@0600 08/3111/30/24 magnesium hydroxide 400 mg/5 mL 30 ml PO DAILY PRN Con stipation 07/12/24 11/30/24 oral suspension (Milk of Magnesia) sennosides 8.6 mg-docusate sodium 1 tab-cap PO BID 08/3111/30/24 50 mg tablet (Senna with Docusate Sodium) sodium phosphates 19 gram-7 118 ml OH DAILY PRN Consti pation 07/12/24 11/30/24 gram/118 mL enema (Fleet Enema) vit C 250 mg-vit E 90 mg-zinc 40 1 tab PO DAILY 11/30/24 mg-copper 1 mf-fgrjck-vqniua capsule (PreserVision AREDS-2) furosemide 20 mg tablet 20 mg PO BID 09/22/24 guaifenesin 400 mg tablet 400 mg PO Q6H PRN Cough/Nasa l 09/22/24 11/30/24 Congestion ipratropium 0.5 mg-albuterol 3 mg 3 ml inhalation Q6H PRN 09/22/24 11/30/24 (2.5 mg base)/3 mL nebulization Non-Productive Cough soln lorazepam 0.5 mg tablet 0.25 mg PO BID PRN Anxiety 0 11/30/24 11/30/24 Previous Rx's ?Medication ?Instructions ?Recorded flash glucose sensor (FreeStyle #1 ea 05/23/23 Madeline 14 Day Sensor kit) flash glucose sensor (FreeStyle #6 ea 05/23/23 Madeline 14 Day Sensor kit) pen needle, diabetic 32 gauge x #400 ea 09/17/23 (BD Eveline 2nd Gen Pen Needle) amiodarone 200 mg tablet 200 mg PO DAILY 90 days #90 tabs 10/29/23 lactulose 10 gram/15 mL oral 30 ml PO DAILY PRN for solution constipation #946 mL simvastatin 10 mg tablet 10 mg PO BEDTIME #90 tabs insulin glargine U-300 conc 300 10 unit (0.0333 mL) cruz bcut DAILY 07/14/24 unit/mL (1.5 mL) subcutaneous pen #4.5 mL (Touty SoloStar U-300 Insulin) metoprolol succinate 100 mg 100 mg PO DAILY 90 days #9 0 tabs 07/22/24 tablet,extended release 24 hr rivaroxaban 15 mg tablet (Xarelto) 15 mg PO DAILY@1700 #90 tabs 09/24/24 Allergies Allergy/AdvReac Type Severity Reaction Status Date / Time codeine Allergy Intermediate TACHYCARDIA Verified 11/30/24 09:54 nitrofurantoin (Macrobid) Allergy Unknown confusion Verified 11/30/24 09:54 pravastatin Allergy Unknown Unknown Verified 11/30/24 09:54 rosuvastatin (Crestor) Allergy Unknown Unknown Verified 11/30/24 09:54 Sulfa (Sulfonamide Allergy Unknown unknown Verified 11/30/24 09:54 Antibiotics) sulfamethoxazole (From Allergy Unknown Unknown Verified 11/30/24 09:54 Bactrim) trimethoprim (From Bactrim) Allergy Unknown Unknown Verified 11/30/24 09:54 amlodipine AdvReac Intermediate leg Verified 11/30/24 09:54 swelling digoxin AdvReac Intermediate Confusion Verified 11/30/24 09:54 Review of Systems 2 Review of Systems: Yes Unobtainable due to mental status Neurologic: Reports confusion Psychiatric: Psychiatric: Reports confusion [facility] Past Medical History Attestation statement: The following information was validated with the patient. Source: old records reviewed and nursing notes reviewed Medical History Congestive heart failure Chronic combined systolic and diastolic CHF (congestive heart failure) Hypothyroidism Constipation Transaminitis Congestive heart failure Ulcer of right ankle Recurrent UTI Urinary tract infection with fever Persistent atrial fibrillation Left thigh pain Abdominal mass, LUQ (left upper quadrant) Iliotibial band syndrome of left side UTI (urinary tract infection) Herpes zoster Orthostatic hypotension Acute hyponatremia Weakness COVID-19 Breast asymmetry Atrial fibrillation with rapid ventricular response Hyperkalemia Essential hypertension Atherosclerotic cardiovascular disease Chronic heart failure with preserved ejection fraction (HFpEF) Iliotibial band syndrome of right side Disc degeneration, lumbar Cognitive dysfunction 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 Atrial fibrillation Osteopenia Hypothyroid Spinal stenosis of lumbar region Degenerative disc disease, lumbar Type 2 diabetes mellitus with hyperglycemia Surgical History History of removal of cyst History of appendectomy History of eye surgery History of cataract surgery History of cholecystectomy History of section History of knee replacement History of hip replacement Family History Family History Father CVD (cardiovascular disease) Mother CVD (cardiovascular disease) Stroke Social History Social History Household Members: Other Household Members Other:: son comes 3 days a week, daughter lives 5 minutes away visits frequently Housing: Skilled Nursing Do you presently have visiting nurse or other home services: No Alcohol intake: never Comment: Sitter at bedside Patient Tobacco Use Status: Former Tobacco user Tobacco use type: Cigarette Years Smoked: <1 Smoked in Last 30 Days: No e-Cigarette/Vaping Use: Former Use Second Hand Smoke Exposure: No Use of substances other than those prescribed or required for medical reasons: No Advance Directives: Yes Advance Directives on File: Yes Advance Directives Date on File: 08/29/21 Do you have a plan to hurt others: No Plan service: No Current occupational status: retired Cognitive needs: Yes (Walker) Hearing needs: No Vision needs: Yes Physical Exam 2 Vital Signs: Vital Signs: Last Vital Signs Temp 94.8 F L 11/30/24 10:06 Pulse 74 11/30/24 14:00 Resp 15 11/30/24 14:00 BP 159/35 H 11/30/24 14:00 Pulse Ox 98 11/30/24 14:00 O2 Del Method Nasal Cannula 11/30/24 14:00 O2 Flow Rate 2 11/30/24 14:00 Oxygen Flow Rate 3 11/30/24 09:47 BMI result Body Mass Index 26.8 Const: General: alert and confusion Orientation/consciousness: confusion Limitations: altered mental status HEENT: Head: Yes normal to inspection, No Moon's sign and No raccoon eyes Ears: hearing grossly normal bilaterally and TM's normal bilaterally General nose exam: Normal external nose present Face and sinus: Yes normal facial exam Mouth: Normal oral and palatal mucosa present Throat: Yes posterior oropharynx normal Eyes: General: appearance normal, both eyes and all related structures P upils: Equal, round and reactive pupils present Neck: Other: Cervical collar in place Neck: Yes normal visual inspection Chest: Chest palpation & inspection: normal inspection of the chest Resp: Effort & Inspection: normal respiratory effort Auscultation: clear to auscultation bilaterally Cardio: Rate: regular rate Rhythm: regular rhythm Peripheral pulses: P eripheral pulses 2+ throughout GI: Inspection: Yes normal to inspection Palpation (GI): Soft to palpation and nontender Auscultation: normal bowel sounds Back/Spine/Pelvis: Thoracic/Lumbar Spine: thoracic and lumbar spine normal to inspection Skin: General skin exam: no rashes or lesions noted Neuro: General: moves all extremities, normal sensation to monofilament and confusion Cranial nerves: Yes Equal, round and reactive pupils present Extrem: General: Yes normal to inspection Course Course Course Narrative: 1115-Met with patients daughter at the bedside. Patient received a dose of lorazepam last evening for agitation for the first time. Reevaluation(s) Reevaluation #1: 1120-UA is consistent with UTI. At this time infection is suspected. Antibiotics ordered Reevaluation #2: 1300-Ct shows moderate right pleural effusion, small left pleural effusion. ?septal bowing seen. Bedside echo done with Dr Baig which shows reduced EF, dilated left atrium. Discussed with family. Patient would likely benefit from admission for IV diuresis, Cardiology consultation and goals of care conversation with family Medications Administered Discontinued Medications Generic Name Dose Route Start Last Admin Trade Name Freq PRN Reason Stop Dose Admin Acetaminophen 975 mg 11/30/24 13:59 11/30/24 14:09 Acetaminophen 325 Mg Tablet PO 11/30/24 14:00 Not Given ONCE ONE Ceftriaxone Sodium 2 gm 11/30/24 11:21 11/30/24 12:38 Ceftriaxone Sodium 2 Gm Vial IVPUSH 11/30/24 11:22 2 gm ONCE ONE Administration Furosemide 40 mg 11/30/24 12:58 11/30/24 13:14 Furosemide 40 Mg/4 Ml Vial IVPUSH 11/30/24 12:59 40 mg STAT STA Administration Protocol Sodium Chloride 500 mls @ 999 mls/hr 11/30/24 11:29 11/30/24 13:02 Ns IV 11/30/24 11:59 Infused .Q31M STA Infusion Insulin Human Lispro 6 unit 11/30/24 14:06 11/30/24 14:18 Insulin Lispro 100 Unit/Ml 3 Ml Vial SUBCUT 11/30/24 14:07 6 unit ONCE ONE Administration Medical Decision Making Medical Decision Making [facility] Narrative: 89 yo female brought in by ambulance from custodial with past medical history significant for dementia, AFib on amiodarone and Xarelto, T2 DM, HLD, CKD, COPD on 3 L NC chronically here after unwitnessed fall. During nursing report they heard a bang and found the patient laying next to her bed on the ground. Patient unable to provide history d/t baseline dementia. Limited exam. As patient is unable to provide HPI or participate in the exam I will order Ct scan head/cervical spine/abdomen/pelvis and chest. Uncertain cause of fall so will obtain EKG, labs including troponin, UA and CXR Differential Diagnosis Differential Diagnoses: The differential diagnosis associated with the presentation includes see course of care Admission/Observation Consideration of admission/observation: Escalation of care including admission/observation considered Patient with oxygen requirement last week with an outpatient CT scan that shows effusion that has been unimproved with furosemide. Repeat imaging today does not show any improvement. I am aware the patient is in congestive heart failure. Will give 40 mg of IV Lasix and admit to medicine Consult Healthcare Provider Management of the patient was discussed with: Hospitalist Kelsey Wild (accepted 1300) Lab Data MDM Lab Attestation statement: I reviewed the patient's lab results. 11/30/24 10:30 11/30/24 10:30 Labs: Lab Results 11/30/24 11/30/24 11/30/24 Range/Units 09:57 10:30 10:47 WBC 7.6 (4.8-10.8) X10*3/uL RBC 3.59 L (4.20-5.50) X10*6/uL Hgb 11.4 L (12.0-16.0) g/dl Hct 35.4 L (37.0-47.0) % MCV 98.6 H (80.0-98.0) fL MCH 31.8 (27.0-33.0) pg MCHC 32.2 (31.0-35.0) g/dl RDW 15.9 (11.0-16.0) % Plt Count 254 (160-400) X10*3/uL MPV 10.4 (9.4-12.3) fL Immature Gran % (Auto) 0.4 (0.0-0.4) % Neut % (Auto) 72.2 (45-73) % Lymph % (Auto) 7.5 L (20-40) % [place] % (Auto) 7.9 (2-11) % Eos % (Auto) 10.7 H (0-4) % Baso % (Auto) 1.3 (0-2) % Lymph # (Auto) 0.6 L (1.2-4.9) X10*3/uL [place] # (Auto) 0.6 (0.1-1.2) X10*3/uL Eos # (Auto) 0.8 H (0.0-0.4) X10*3/uL Baso # (Auto) 0.1 (0.0-0.2) X10*3/uL Abs Immat Gran (auto) 0.03 (0.00-0.03) X10*3/uL Absolute Neuts (auto) 5.5 (2.0-8.3) x10*3/uL Absolute Nucleated RBC 0.000 (0.0-0.012) X10*3/uL Nucleated RBC % (auto) 0.0 (0.0-0.2) /100WBC PT 23.2 H D (10.9-12.4) SEC INR 2.0 H (0.9-1.1) Sodium 136 (135-145) mmol/L Potassium 4.3 (3.3-5.1) mmol/L Chloride 98 (96-108) mmol/L Carbon Dioxide 25 (22-29) mmol/L Anion Gap 17 (12-20) BUN 28 H (9-16) mg/dL Creatinine 1.12 (0.5-1.4) mg/dL Estim Creat Clear Calc 33.5 Estimated GFR 46 POC Glucose 324 H (60-115) mg/dL Random Glucose 397 H* (60-115) mg/dL Lactic Acid 1.5 (0.5-2.0) mmol/L Calcium 9.1 (8.4-10.2) mg/dL Magnesium 2.3 (1.6-2.6) mg/dL Total Bilirubin 0.6 (0.0-1.0) mg/dL Direct Bilirubin 0.3 (0.0-0.5) mg/dL AST 37 H (5-31) U/L ALT 26 (0-31) U/L Alkaline Phosphatase 143 H (39-117) U/L Troponin I High Sens 6.3 (<3.5-17.0) ng/L B-Natriuretic Peptide 337 H (<100) pg/mL Total Protein 7.1 (6.5-8.0) g/dL Albumin 4.1 (3.5-5.0) g/dL Urine Color Yellow Urine Appearance Clear Urine pH 7.0 (5.0-9.0) Ur Specific [place] 1.020 (1.005-1.025) Urine Protein 100 (2+) H (Neg-Trace) mg/dL Urine Glucose (UA) >=1000 H (Negative) mg/dL Urine Ketones Negative (Negative) mg/dL Urine Blood Trace H (Negative) Urine Nitrite Negative (Negative) Ur Leukocyte Esterase Trace H (Negative) Urine RBC 3-5 H (0-2) /HPF Urine WBC 11-20 H (0-5) /HPF Ur Squamous Epith Cells 0-2 (0-2) /HPF Urine Bacteria Trace (None Seen) Hyaline Casts 0-2 (0-2) /LPF Urine Yeast Present 11/30/24 Range/Units 12:05 WBC (4.8-10.8) X10*3/uL RBC (4.20-5.50) X10*6/uL Hgb (12.0-16.0) g/dl Hct (37.0-47.0) % MCV (80.0-98.0) fL MCH (27.0-33.0) pg MCHC (31.0-35.0) g/dl RDW (11.0-16.0) % Plt Count (160-400) X10*3/uL MPV (9.4-12.3) fL Immature Gran % (Auto) (0.0-0.4) % Neut % (Auto) (45-73) % Lymph % (Auto) (20-40) % [place] % (Auto) (2-11) % Eos % (Auto) (0-4) % Baso % (Auto) (0-2) % Lymph # (Auto) (1.2-4.9) X10*3/uL [place] # (Auto) (0.1-1.2) X10*3/uL Eos # (Auto) (0.0-0.4) X10*3/uL Baso # (Auto) (0.0-0.2) X10*3/uL Abs Immat Gran (auto) (0.00-0.03) X10*3/uL Absolute Neuts (auto) (2.0-8.3) x10*3/uL Absolute Nucleated RBC (0.0-0.012) X10*3/uL Nucleated RBC % (auto) (0.0-0.2) /100WBC PT (10.9-12.4) SEC INR (0.9-1.1) Sodium (135-145) mmol/L Potassium (3.3-5.1) mmol/L Chloride (96-108) mmol/L Carbon Dioxide (22-29) mmol/L Anion Gap (12-20) BUN (9-16) mg/dL Creatinine (0.5-1.4) mg/dL Estim Creat Clear Calc Estimated GFR POC Glucose (60-115) mg/dL Random Glucose (60-115) mg/dL Lactic Acid (0.5-2.0) mmol/L Calcium (8.4-10.2) mg/dL Magnesium (1.6-2.6) mg/dL Total Bilirubin (0.0-1.0) mg/dL Direct Bilirubin (0.0-0.5) mg/dL AST (5-31) U/L ALT (0-31) U/L Alkaline Phosphatase (39-117) U/L Troponin I High Sens (<3.5-17.0) ng/L B-Natriuretic Peptide (<100) pg/mL Total Protein (6.5-8.0) g/dL Albumin (3.5-5.0) g/dL Urine Color Yellow Urine Appearance Clear Urine pH 7.5 (5.0-9.0) Ur Specific [place] 1.020 (1.005-1.025) Urine Protein 30 (1+) H (Neg-Trace) mg/dL Urine Glucose (UA) >=1000 H (Negative) mg/dL Urine Ketones Trace (Negative) mg/dL Urine Blood Negative (Negative) Urine Nitrite Negative (Negative) Ur Leukocyte Esterase Moderate (2+) H (Negative) Urine RBC 0-2 (0-2) /HPF Urine WBC 21-50 H (0-5) /HPF Ur Squamous Epith Cells 0-2 (0-2) /HPF Urine Bacteria None Seen (None Seen) Hyaline Casts 0-2 (0-2) /LPF Urine Yeast Present Independent Interpretation I performed an independent interpretation of an: EKG and CT Scan Interpretation: I independently reviewed the CT scan agree with the radiology report I independently viewed the EKG which shows AFib with a rate of 69 Radiology Impression Discussion of test interpretation with radiology: I have reviewed the radiologist's reading. Radiologist Impression: [address] [address] [address] Scan Report Signed Patient: Gerri Sanchez MR#: [id number] : 1935 Acct:[id number] Age/Sex: 89 / F ADM Date: 11/30/24 Loc: .ED Attending Dr: Ordering Physician: Bruna Eastman NP Date of Service: 11/30/24 Procedure(s): CT chest wo IV con Accession Number(s): [id number] cc: Bruna Eastman THORACIC SURGEON~ Report Number: [id number]: Total DLP = 0.00 mGy-cm CLINICAL HISTORY: trauma CT chest without contrast Comparison: 11/26/2024 Findings: Prominent/enlarged cardiac atria as before. Prominent right pretracheal node measuring up to 9 mm in short axis as before. Small thyroid gland. Nonprogressive small left basilar pleural-parenchymal opacity. No significant change in moderate right simple pleural effusion with neighboring atelectasis. New biapical septal thickening due to pulmonary edema. For the upper abdominal findings please refer to same-day abdomen CT report. Spinal degenerative changes. Query anemia. IMPRESSION: 1. Nonprogressive small left basilar pleural-parenchymal opacity. No significant change in moderate right simple pleural effusion with neighboring atelectasis. 2. New biapical septal thickening due to pulmonary edema. 3. Query anemia. [place] [address] CT Scan Report Signed Patient: Gerri Sanchez MR#: [id number] : 1935 Acct:[id number] Age/Sex: 89 / F ADM Date: 11/30/24 Loc: .ED Attending Dr: Ordering Physician: Bruna Eastman NP Date of Service: 11/30/24 Procedure(s): CT abdomen pelvis wo IV con Accession Number(s): [id number] cc: Bruna Eastman THORACIC SURGEON~ Report Number: [id number]: Total DLP = 1424.00 mGy-cm CLINICAL HISTORY: trauma CT abdomen and pelvis without contrast Comparison: None provided Findings: For the lower chest refer to same-day chest CT report. Limited evaluation due to streak artifacts from inferior positioning of the upper extremitie, s as well as streak artifacts from right proximal femoral hardware and left hip arthroplasty. Partially lobulated hepatic contour. Query cirrhosis Bhngevdq-zm-rrflnv pancreatic atrophy. Gallbladder not seen. Mild partial left adrenal gland hyperplasia. No urinary tract stone or hydronephrosis. Mild bilateral perinephric fluid/fat stranding may be age related/incidental finding. Colonic diverticulosis without diverticulitis. No bowel obstruction. Dense colonic contentsy may be due to prior oral contrast administration. Appendix not seen and therefore could not be evaluated. No evidence of inflammatory right lower quadrant fatty changes. Distended urinary bladder extending into the lower abdomen. Right femoral intertrochanteric/greater trochanteric, chronic fracture nonunion with up to 7 mm step-off medially, not significantly changed in alignment relative to the 07/09/2024 radiograph. No acute fracture. Decreased bone mineralization. Qhoj-op-yhcgwbhf chronic height loss of a few of the lower lumbar spine vertebral bodies. Lumbar spine degenerative changes. Severe fatty atrophy of portions of the left gluteal muscle. IMPRESSION: Distended urinary bladder extending into the lower abdomen. Query cirrhosis. 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 [address] [address] [address] Scan Report Signed Patient: Gerri Sanchez MR#: [id number] : 1935 Acct:[id number] Age/Sex: 89 / F ADM Date: 11/30/24 Loc: HO.ED Attending Dr: Ordering Physician: Bruna Eastman NP Date of Service: 11/30/24 Procedure(s): CT cervical spine wo IV con Accession Number(s): [id number] cc: Bruna Eastman NP~ Report Number: [id number]: Total DLP = 1097.00 mGy-cm CLINICAL HISTORY: trauma CT cervical spine without contrast Comparison: 07/26/2024 Findings: For the head and chest findings please refer the same-day head and chest CT reports respectively. Stable alignment with mild grade 1 anterolisthesis at a few levels. No acute fracture. Unremarkable prevertebral soft tissues. Atherosclerotic calcifications. IMPRESSION: No acute fracture of the cervical spine This document has been electronically signed by: Julia Zaidi MD on 11/30/2024 12:15:[address] [place] [address] [address] Scan Report Signed Patient: Gerri Sanchez MR#: [id number] : 1935 Acct:[id number] Age/Sex: 89 / F ADM Date: 11/30/24 Loc: HO.ED Attending Dr: Ordering Physician: Bruna Eastman NP Date of Service: 11/30/24 Procedure(s): CT head/brain wo IV con Accession Number(s): [id number] cc: Bruna Eastman NP~ Report Number: [id number]: Total DLP = 0.00 mGy-cm CLINICAL HISTORY: trauma CT head without contrast Comparison: 07/26/2024 Findings: No intra-axial mass, midline shift, hydrocephalus, or acute hemorrhage. Xskf-hh-jzdfrihh cerebral hemispheric white matter ischemic changes. Redemonstration of approximately 2.9 x 2.4 cm (axial plane dimensions) right cisterna magna arachnoid cyst. The visualized paranasal sinuses and mastoid air cells are normal. Bilateral cataract surgery. There is no acute fracture. IMPRESSION: 1. No acute intracranial findings. Independent Historian Clinical information obtained from an independent historian. History obtained from or confirmed by: EMS Chronic Conditions Patient?s care impacted by: Diabetes and Other (dementia) Critical Care Time Critical Care Time Critical Care Time: Yes Total Critical Care Time: 90 Attestation: Time includes: direct patient care, patient reassessment, coordination of patient care, interpretation of data, review of patient's medical records, medical consultation and documentation of patient care. Discharge Plan Discharge Clinical Impression: CHF (congestive heart failure), Acute UTI Patient Disposition: Admitted As Inpatient
[2024-11-30 10:40] LABS: MANUAL DIFF FLAG NO
[2024-11-30 10:41] LABS: Hematocrit 35.4 % (37.0-47.0); Hemoglobin 11.4 g/dl (12.0-16.0); Imm Gran Abs Auto 0.03 X10*3/uL (0.00-0.03); Imm Gran Pct Auto 0.4 % (0.0-0.4); Lymphocytes Absolute Auto 0.6 X10*3/uL (1.2-4.9); Mean Corpuscular HGB Conc 32.2 g/dl (31.0-35.0); Mean Corpuscular Hemoglobin 31.8 pg (27.0-33.0); Mean Corpuscular Volume 98.6 fL (80.0-98.0); NRBC Abs Auto 0.000 X10*3/uL (0.0-0.012); NRBC Pct Auto 0.0 /100WBC (0.0-0.2); Platelet Count 254 X10*3/uL (160-400); Red Blood Count 3.59 X10*6/uL (4.20-5.50); White Blood Count 7.6 X10*3/uL (4.8-10.8)
[2024-11-30 10:54] LABS: INTERNATIONAL NORM RATIO 2.0 (0.9-1.1); Prothrombin Time 23.2 SEC (10.9-12.4)
[2024-11-30 10:55] LABS: Appearance Urine Clear; Glucose Urine UA >=1000 mg/dL (Negative); PH 7.0 (5.0-9.0); Specific Gravity - Urine 1.020 (1.005-1.025); UMIC TRIGGER UACC YES
[2024-11-30 11:09] LABS: Troponin-I High Sensitivity 6.3 ng/L (<3.5-17.0)
[2024-11-30 11:16] LABS: UACC Culture Trigger YES
[2024-11-30 11:29] LABS: Alanine Aminotransferase 26 U/L (0-31); Albumin Level 4.1 g/dL (3.5-5.0); Alkaline Phosphatase 143 U/L (39-117); Anion Gap 17 (12-20); Aspartate Amino Transferase 37 U/L (5-31); Blood Urea Nitrogen 28 mg/dL (9-16); Calcium 9.1 mg/dL (8.4-10.2); Carbon Dioxide 25 mmol/L (22-29); Chloride 98 mmol/L (96-108); Creatinine Clr Calc Pharmacy 33.5; Estimated Glomerular Filt Rate 46; Magnesium 2.3 mg/dL (1.6-2.6); Potassium 4.3 mmol/L (3.3-5.1); Sodium 136 mmol/L (135-145); Total Protein 7.1 g/dL (6.5-8.0)
--- NOTE | 2024-11-30 12:10 | PC.NURSE ---
holding the abx at this time, just sent urine down from a straight cath, prior urine was from a bed jimenez
[2024-11-30 12:14] LABS: Appearance Urine Clear; Glucose Urine UA >=1000 mg/dL (Negative); PH 7.5 (5.0-9.0); Specific Gravity - Urine 1.020 (1.005-1.025); UMIC TRIGGER UACC YES
[2024-11-30 12:27] LABS: UACC Culture Trigger YES
[2024-11-30 12:56] LABS: B Type Natriuretic Peptide 337 pg/mL (<100)
[2024-11-30] MEDS: Furosemide 40 MG/4 ML VIAL IVPUSH (13:14)
--- NOTE | 2024-11-30 14:00 | PM.IMHP ---
History of Present Illness Date of Service: 11/30/24 Attending physician on admission: Dru Sloan Chief Complaint: unwitnessed fall This is an 89-year-old female with a history of dementia who resides at long-term care at [facility] who was brought into the emergency department after an unwitnessed fall. Patient's history is primarily obtained from the daughter at the bedside due to the patient's advanced dementia. approximately 1 week of patient was noted to be hypoxic and was started on 3 L by nasal cannula. Outpatient chest CT showed a moderate size right pleural effusion. Her dose of Lasix was increased from 20 mg b.i.d. to 40 mg in the morning and 20 mg at night. She has been tolerating her oxygen and has no significant complaints of shortness of breath. She is minimally ambulatory and primarily gets about with a wheelchair. This morning she had an unwitnessed fall, staff workers heard a thump and came and found her on the floor by the bed. Her daughter states that it is not uncommon for her to try to get out of bed if the staff members do not get her up early enough. She had CT scan of the chest, cervical spine, abdomen and head which were unremarkable for any fractures or any acute changes. Chest CT redemonstrated moderate right pleural effusion with some evidence of pulmonary edema. Her BNP was 337 which is similar to her recent baseline. She received a dose of IV Lasix. Urinalysis was questionable for UTI and she received a dose of IV ceftriaxone. She will be admitted for further management of right pleural effusion, CHF, on went Review of Systems Review of Systems: Yes all other systems are reviewed and are negative Constitutional: Constitutional: Denies fever(s) Cardiovascular: Cardiovascular: Denies dyspnea Respiratory: Respiratory: Denies cough and Denies dyspnea [facility] Medical History Congestive heart failure Chronic combined systolic and diastolic CHF (congestive heart failure) Hypothyroidism Constipation Transaminitis Congestive heart failure Ulcer of right ankle Recurrent UTI Urinary tract infection with fever Persistent atrial fibrillation Left thigh pain Abdominal mass, LUQ (left upper quadrant) Iliotibial band syndrome of left side UTI (urinary tract infection) Herpes zoster Orthostatic hypotension Acute hyponatremia Weakness COVID-19 Breast asymmetry Atrial fibrillation with rapid ventricular response Hyperkalemia Essential hypertension Atherosclerotic cardiovascular disease Chronic heart failure with preserved ejection fraction (HFpEF) Iliotibial band syndrome of right side Disc degeneration, lumbar Cognitive dysfunction 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 Atrial fibrillation Osteopenia Hypothyroid Spinal stenosis of lumbar region Degenerative disc disease, lumbar Type 2 diabetes mellitus with hyperglycemia Family History Father CVD (cardiovascular disease) Mother CVD (cardiovascular disease) Stroke Surgical History History of removal of cyst History of appendectomy History of eye surgery History of cataract surgery History of cholecystectomy History of section History of knee replacement History of hip replacement Social History Household Members: Other Household Members Other:: son comes 3 days a week, daughter lives 5 minutes away visits frequently Housing: [facility] Do you presently have visiting nurse or other home services: No Alcohol intake: never Comment: Sitter at bedside Patient Tobacco Use Status: Former Tobacco user Tobacco use type: Cigarette Years Smoked: <1 Smoked in Last 30 Days: No e-Cigarette/Vaping Use: Former Use Second Hand Smoke Exposure: No Use of substances other than those prescribed or required for medical reasons: No Advance Directives: Yes Advance Directives on File: Yes Advance Directives Date on File: 08/29/21 Do you have a plan to hurt others: No Plan service: No Current occupational status: retired Cognitive needs: Yes (Walker) Hearing needs: No Vision needs: Yes Meds Allergies Allergy/AdvReac Type Severity Reaction Status Date / Time codeine Allergy Intermediate TACHYCARDIA Verified 11/30/24 09:54 nitrofurantoin (Macrobid) Allergy Unknown confusion Verified 11/30/24 09:54 pravastatin Allergy Unknown Unknown Verified 11/30/24 09:54 rosuvastatin (Crestor) Allergy Unknown Unknown Verified 11/30/24 09:54 Sulfa (Sulfonamide Allergy Unknown unknown Verified 11/30/24 09:54 Antibiotics) sulfamethoxazole (From Allergy Unknown Unknown Verified 11/30/24 09:54 Bactrim) trimethoprim (From Bactrim) Allergy Unknown Unknown Verified 11/30/24 09:54 amlodipine AdvReac Intermediate leg Verified 11/30/24 09:54 swelling digoxin AdvReac Intermediate Confusion Verified 11/30/24 09:54 Home Medications ?Medication ?Instructions ?Recorded ?Confirmed ?Last Taken ?Type travoprost 0.004 % eye drops 1 drp ophthalmic (eye) BEDTIME 06/01/20 11/30/24 11/16/23 History acetaminophen 500 mg tablet 1,000 mg PO TID Pain 08/17/21 11/30/24 08/16/21 History cholecalciferol (vitamin D3) 25 25 mcg PO DAILY 01/01/23 11/30/24 04/19/24 History mcg (1,000 unit) capsule insulin lispro 100 unit/mL 1 sliding scale dose subcut TIDAC 11/17/23 11/30/24 04/19/24 History subcutaneous pen (Humalog KwikPen (U-100) Insulin) calcitriol 0.25 mcg capsule 0.25 mcg PO Q48H 04/20/24 11/30/24 04/19/24 History melatonin 5 mg capsule 5 mg PO BEDTIME PRN insomnia 05/05/24 11/30/24 Unknown History bisacodyl 10 mg rectal suppository 10 mg MO DAILY PRN Constipation 07/12/24 11/30/24 Unknown History levothyroxine 150 mcg tablet 150 mcg PO DAILY@0600 07/12/24 11/30/24 Unknown History magnesium hydroxide 400 mg/5 mL 30 ml PO DAILY PRN Constipation 07/12/24 11/30/24 Unknown History oral suspension (Milk of Magnesia) sennosides 8.6 mg-docusate sodium 1 tab-cap PO BID 07/12/24 11/30/24 Unknown History 50 mg tablet (Senna with Docusate Sodium) sodium phosphates 19 gram-7 118 ml MO DAILY PRN Constipation 07/12/24 11/30/24 Unknown History gram/118 mL enema (Fleet Enema) vit C 250 mg-vit E 90 mg-zinc 40 1 tab PO DAILY 07/12/24 11/30/24 Unknown History mg-copper 1 [id number] capsule (PreserVision AREDS-2) furosemide 20 mg tablet 20 mg PO BID 09/22/24 11/30/24 Unknown History guaifenesin 400 mg tablet 400 mg PO Q6H PRN Cough/Nasal 09/22/24 11/30/24 Unknown History Congestion ipratropium 0.5 mg-albuterol 3 mg 3 ml inhalation Q6H PRN 09/22/24 11/30/24 Unknown History (2.5 mg base)/3 mL nebulization Non-Productive Cough soln lorazepam 0.5 mg tablet 0.25 mg PO BID PRN Anxiety 11/30/24 11/30/24 Unknown History Physical Exam Vital Signs and Narrative: Vital Signs: Last Vital Signs Temp 94.8 F L 11/30/24 10:06 Pulse 74 11/30/24 12:00 Resp 17 11/30/24 12:00 BP 161/93 H 11/30/24 12:00 Pulse Ox 97 11/30/24 12:00 O2 Del Method Nasal Cannula 11/30/24 12:00 O2 Flow Rate 2 11/30/24 12:00 Oxygen Flow Rate 3 11/30/24 09:47 BMI result Body Mass Index 26.8 Const: General: cooperative, comfortable, no acute distress, alert and awake Nutritional Appearance: average body habitus Orientation/consciousness: oriented to person and oriented to place Resp: Other: Diminished, decreased respiratory. No wheeze Effort & Inspection: normal respiratory effort, able to speak in complete sentences, no respiratory distress and no use of accessory muscles Cardio: Rate: regular rate GI: Inspection: No distended Palpation (GI): not soft and nontender Neuro: General: oriented to person, oriented to place, moves all extremities and CN's II-XI intact bilaterally Extrem: General: No pedal edema Results Labs 11/30/24 10:30 11/30/24 10:30 Labs: Laboratory Results - last 24 hr 11/30/24 11/30/24 11/30/24 09:57 10:30 10:47 MCV 98.6 H MCH 31.8 MCHC 32.2 RDW 15.9 Plt Count 254 MPV 10.4 Immature Gran % (Auto) 0.4 Neut % (Auto) 72.2 Lymph % (Auto) 7.5 L [place] % (Auto) 7.9 Eos % (Auto) 10.7 H Baso % (Auto) 1.3 Lymph # (Auto) 0.6 L [place] # (Auto) 0.6 Eos # (Auto) 0.8 H Baso # (Auto) 0.1 Abs Immat Gran (auto) 0.03 Absolute Neuts (auto) 5.5 Absolute Nucleated RBC 0.000 Nucleated RBC % (auto) 0.0 PT 23.2 H D INR 2.0 H Anion Gap 17 Estim Creat Clear Calc 33.5 Estimated GFR 46 POC Glucose 324 H Random Glucose 397 H* Lactic Acid 1.5 Calcium 9.1 Magnesium 2.3 Total Bilirubin 0.6 Direct Bilirubin 0.3 AST 37 H ALT 26 Alkaline Phosphatase 143 H B-Natriuretic Peptide 337 H Total Protein 7.1 Albumin 4.1 Urine Color Yellow Urine Appearance Clear Urine pH 7.0 Ur Specific [place] 1.020 Urine Protein 100 (2+) H Urine Glucose (UA) >=1000 H Urine Ketones Negative Urine Blood Trace H Urine Nitrite Negative Ur Leukocyte Esterase Trace H Urine RBC 3-5 H Urine WBC 11-20 H Ur Squamous Epith Cells 0-2 Urine Bacteria Trace Hyaline Casts 0-2 Urine Yeast Present 11/30/24 12:05 MCV MCH MCHC RDW Plt Count MPV Immature Gran % (Auto) Neut % (Auto) Lymph % (Auto) [place] % (Auto) Eos % (Auto) Baso % (Auto) Lymph # (Auto) [place] # (Auto) Eos # (Auto) Baso # (Auto) Abs Immat Gran (auto) Absolute Neuts (auto) Absolute Nucleated RBC Nucleated RBC % (auto) PT INR Anion Gap Estim Creat Clear Calc Estimated GFR POC Glucose Random Glucose Lactic Acid Calcium Magnesium Total Bilirubin Direct Bilirubin AST ALT Alkaline Phosphatase B-Natriuretic Peptide Total Protein Albumin Urine Color Yellow Urine Appearance Clear Urine pH 7.5 Ur Specific [place] 1.020 Urine Protein 30 (1+) H Urine Glucose (UA) >=1000 H Urine Ketones Trace Urine Blood Negative Urine Nitrite Negative Ur Leukocyte Esterase Moderate (2+) H Urine RBC 0-2 Urine WBC 21-50 H Ur Squamous Epith Cells 0-2 Urine Bacteria None Seen Hyaline Casts 0-2 Urine Yeast Present Assessment and Plan (1) Chronic heart failure with preserved ejection fraction (HFpEF): Status: Acute Plan This is an 88-year-old female resident [facility] with h/o hypertension, hyperlipidemia, atrial fibrillation on anticoagulation, dementia, systolic and diastolic heart failure, hypothyroidism, insulin-dependent diabetes mellitus, chronic constipation on lactulose, and JADYN not on CPAP who was sent to the emergency department after an unwitnessed fall. Unwitnessed fall Patient unable to provide history due to dementia, daughter thinks she fell out of bed as she tries to get up on her own free Monitor overnight on [place] Acute on chronic heart failure with combined systolic and diastolic CHF Received IV Lasix in the ED hold off on further IV diuresis at this Continue baseline lasix wean o2 as able low na diet Moderate right pleural effusion Acute on chronic Would hold off on thoracentesis at this due to age and anticoagulation with Xarelto diarrhea began having diarrhea while in ED check stool studies hypothermia jennifer BRODERICK [place] we will be converted to lantus SSI, POCs, ADA diet Persistent atrial fibrillation Continue amiodarone, metoprolol Continue Xarelto for anticoagulation HLD Continues statin Hypothyroidism Continue Synthroid dvt ppx - Xarelto Code status-DNR/DNI Quality Stroke Does the patient have a stroke diagnosis?: No VTE Prior VTE?: No VTE Risk Level:: Medical - moderate - high VTE Device Contraindication: Treatment Not Indicated VTE Drug Contraindication: N/A - Med Ordered
[2024-11-30 14:07] LABS: Glucose, Whole Blood 346 mg/dL (60-115)
--- NOTE | 2024-11-30 14:11 | PHA.MEDREC ---
Pharmacy Consult ? Medication Reconciliation Pharmacy has completed the medication reconciliation. List provided from [facility]
--- NOTE | 2024-11-30 16:01 | PC.NURSE ---
pt started to have copious amount of water diarrhea and rectal temp dropped to 93.8, pt is being put on a bear hugger and admitting provider aware
--- NOTE | 2024-11-30 17:50 | HO.SKINPHOTO ---
Location: Category: Stage: Length: Width: Depth: cm Location: Category: Stage: Length: Width: Depth: cm Location: Category: Stage: Length: Width: Depth: cm Location: Category: Stage: Length: Width: Depth: cm Location: Category: Stage: Length: Width: Depth: cm Location: Category: Stage: Length: Width: Depth: cm
[2024-11-30] MEDS: 0.9 % Sodium Chloride Flush 3 ML SYRINGE IVFLUSH ×2 (17:57→19:42)
[2024-11-30] MEDS: Rivaroxaban 15 MG TABLET PO (17:57)
[2024-11-30 18:08] LABS: Free T4 (Free Thyroxine) 1.02 ng/dL (0.71-1.85)
[2024-11-30] MEDS: Latanoprost 0.005 % Ophth Sol 2.5 ML DROPS 1 DROP EYE-BOTH (19:54)
[2024-12-01] VITALS (9 sets, daily range): BP systolic 138–157; BP diastolic 67–75; PULSE 68–95; RESP 18–20; TEMP 36.1–37.1; O2SAT 91–96
[2024-12-01] MEDS: OLANZapine 10 MG VIAL 2.5 MG IM (01:24)
[2024-12-01 01:49] LABS: Glucose, Whole Blood 216 mg/dL (60-115)
--- NOTE | 2024-12-01 03:33 | PC.NURSE ---
This RN walked into room 453 and pt was becoming increasingly agitated. This Rn tried to redirect patient several times but pt continued to rip off telemetry leads and bear hugger blanket. Rehab Director Occupational Therapist notified and put in one time dose of zyprexa 2.5 mg IM. Pt is now resting in bed. Pt has scratch/tear to right chest that is covered with a bandaid.
[2024-12-01 07:37] LABS: Glucose, Whole Blood 222 mg/dL (60-115)
[2024-12-01 07:49] LABS: Anion Gap 16 (12-20); Blood Urea Nitrogen 23 mg/dL (9-16); Calcium 8.7 mg/dL (8.4-10.2); Carbon Dioxide 30 mmol/L (22-29); Chloride 98 mmol/L (96-108); Creatinine Clr Calc Pharmacy 36.1; Estimated Glomerular Filt Rate 51; Potassium 3.7 mmol/L (3.3-5.1); Sodium 140 mmol/L (135-145)
[2024-12-01] MEDS: Metoprolol Succinate ER 100 MG TAB.ER.24H PO (09:11)
[2024-12-01] MEDS: 0.9 % Sodium Chloride Flush 3 ML SYRINGE IVFLUSH ×3 (09:12→21:32)
[2024-12-01] MEDS: Insulin Glargine,Hum.rec.anlog 100 UNIT/ML 10 ML VIAL 9 UNIT SUBCUT (09:12)
[2024-12-01 09:14] LABS: E. coli EAEC Not Detected (Not Detect.); E. coli EPEC Not Detected (Not Detect.); E. coli ETEC Not Detected (Not Detect.); E. coli STEC Not Detected (Not Detect.); Shigella sp./EIEC Not Detected (Not Detect.)
--- NOTE | 2024-12-01 09:17 | P.PNIM_ITS ---
Subjective Subjective Date of Service: 12/01/24 Physical Exam 2 Vital Signs: Vital Signs: Last Vital Signs Temp 97.0 F 12/01/24 08:00 Pulse 95 12/01/24 08:00 Resp 20 12/01/24 08:00 BP 147/72 H 12/01/24 08:00 Pulse Ox 95 12/01/24 08:00 O2 Del Method Nasal Cannula 12/01/24 08:00 O2 Flow Rate 2 12/01/24 08:00 Oxygen Flow Rate 3 11/30/24 09:47 BMI result Body Mass Index 25.8 Objective Data Active Medications Acetaminophen (Acetaminophen 325 Mg Tablet) 650 mg PO Q6H PRN PRN Reason: Pain, Mild 1-3,fever,headache Last Admin: 11/30/24 19:42 Dose: 650 mg Documented By: JIMMY Albuterol/Ipratropium (Albuterol/Iprat 2.5/0.5mg 3 Ml Ampul.Neb) 3 ml INHALE RQ6H PRN PRN Reason: Non-Productive Cough Amiodarone HCl (Amiodarone Hcl 200 Mg Tablet) 200 mg PO DAILY [facility] Atorvastatin Calcium (Atorvastatin Calcium 10 Mg Tablet) 10 mg PO DAILY [facility] Bisacodyl (Bisacodyl 10 Mg Supp.Rect) 10 mg [place] DAILY PRN PRN Reason: Constipation Calcitriol (Calcitriol 0.25 Mcg Capsule) 0.25 mcg PO Q48H [facility] Last Admin: 11/30/24 14:57 Dose: 0.25 mcg Documented By: JASPER Calcium Carbonate (Calcium Carbonate 750 Mg Tab.Chew) 750 mg PO Q4H PRN PRN Reason: Heartburn Dextrose (Dextrose 50 % 25 Gm/50 Ml Syringe) 25 gm IVPUSH Q15M PRN; Protocol PRN Reason: per Hypoglycemia Standing Ord. Furosemide (Furosemide 20 Mg Tablet) 20 mg PO BID [facility]; Protocol Last Admin: 11/30/24 19:40 Dose: 20 mg Documented By: JIMMY Glucose (Glucose Gel 15 Gm Gel..Gram.) 15 gm PO Q15M PRN; Protocol PRN Reason: per Hypoglycemia Standing Ord. Insulin Glargine (Insulin Glargine,Hum.Rec.Anlog 100 Unit/Ml 10 Ml Vial) 9 unit SUBCUT DAILY [facility] Insulin Human Lispro (Insulin Lispro 100 Unit/Ml 3 Ml Vial) 0 unit SUBCUT QIDACHS [facility]; Protocol Lactulose (Lactulose 20 Gm/30 Ml Solution) 20 gm PO DAILY PRN PRN Reason: for constipation Latanoprost (Latanoprost 0.005 % Ophth Liseth 2.5 Ml Drops) 1 drop EYE-BOTH BEDTIME [facility] Last Admin: 11/30/24 19:54 Dose: 1 drop Documented By: JIMMY Levothyroxine Sodium (Levothyroxine Sodium 150 Mcg Tablet) 150 mcg PO DAILY@0600 [facility] Last Admin: 12/01/24 05:39 Dose: 150 mcg Documented By: JIMMY Magnesium Hydroxide (Milk Of Magnesia 30 Ml Oral.Susp) 30 ml PO DAILY PRN PRN Reason: Constipation Melatonin (Melatonin 3 Mg Tablet) 6 mg PO BEDTIME PRN PRN Reason: Insomnia Melatonin (Melatonin 3 Mg Tablet) 6 mg PO BEDTIME PRN PRN Reason: Insomnia Metoprolol Succinate (Metoprolol Succinate Er 100 Mg Tab.Er.24h) 100 mg PO DAILY [facility]; Protocol Multivitamins/Vitamin C (Multivitamin Tablet) 1 tab PO DAILY [facility] Rivaroxaban (Rivaroxaban 15 Mg Tablet) 15 mg PO DAILY@1700 [facility] Last Admin: 11/30/24 17:57 Dose: 15 mg Documented By: KRUPA Senna/Docusate Sodium (Sennosides/Docusate Sodium Tablet) 1 tab PO BID [facility] Last Admin: 11/30/24 19:52 Dose: Not Given Documented By: JIMMY Non-Admin Reason: pt having loose BM's Sodium Chloride (0.9 % Sodium Chloride Flush 3 Ml Syringe) 3 ml IVFLUSH QSHIFT [facility] Last Admin: 11/30/24 19:42 Dose: 3 ml Documented By: JIMMY Vitamin D (Cholecalciferol (Vitamin D3) 25 Mcg Tablet) 25 mcg PO DAILY [facility] Labs 11/30/24 10:30 12/01/24 06:54 Labs: Laboratory Results - last 24 hr 11/30/24 11/30/24 11/30/24 09:57 10:30 10:47 MCV 98.6 H MCH 31.8 MCHC 32.2 RDW 15.9 Plt Count 254 MPV 10.4 Immature Gran % (Auto) 0.4 Neut % (Auto) 72.2 Lymph % (Auto) 7.5 L Noble % (Auto) 7.9 Eos % (Auto) 10.7 H Baso % (Auto) 1.3 Lymph # (Auto) 0.6 L Noble # (Auto) 0.6 Eos # (Auto) 0.8 H Baso # (Auto) 0.1 Abs Immat Gran (auto) 0.03 Absolute Neuts (auto) 5.5 Absolute Nucleated RBC 0.000 Nucleated RBC % (auto) 0.0 Hold Purple Top PT 23.2 H D INR 2.0 H Anion Gap 17 Estim Creat Clear Calc 33.5 Estimated GFR 46 POC Glucose 324 H Random Glucose 397 H* Lactic Acid 1.5 Calcium 9.1 Magnesium 2.3 Total Bilirubin 0.6 Direct Bilirubin 0.3 AST 37 H ALT 26 Alkaline Phosphatase 143 H B-Natriuretic Peptide 337 H Total Protein 7.1 Albumin 4.1 TSH 14.98 H Free T4 1.02 Urine Color Yellow Urine Appearance Clear Urine pH 7.0 Ur Specific [place] 1.020 Urine Protein 100 (2+) H Urine Glucose (UA) >=1000 H Urine Ketones Negative Urine Blood Trace H Urine Nitrite Negative Ur Leukocyte Esterase Trace H Urine RBC 3-5 H Urine WBC 11-20 H Ur Squamous Epith Cells 0-2 Urine Bacteria Trace Hyaline Casts 0-2 Urine Yeast Present 11/30/24 11/30/24 12/01/24 12:05 14:03 01:45 MCV MCH MCHC RDW Plt Count MPV Immature Gran % (Auto) Neut % (Auto) Lymph % (Auto) Noble % (Auto) Eos % (Auto) Baso % (Auto) Lymph # (Auto) Noble # (Auto) Eos # (Auto) Baso # (Auto) Abs Immat Gran (auto) Absolute Neuts (auto) Absolute Nucleated RBC Nucleated RBC % (auto) Hold Purple Top PT INR Anion Gap Estim Creat Clear Calc Estimated GFR POC Glucose 346 H 216 H Random Glucose Lactic Acid Calcium Magnesium Total Bilirubin Direct Bilirubin AST ALT Alkaline Phosphatase B-Natriuretic Peptide Total Protein Albumin TSH Free T4 Urine Color Yellow Urine Appearance Clear Urine pH 7.5 Ur Specific [place] 1.020 Urine Protein 30 (1+) H Urine Glucose (UA) >=1000 H Urine Ketones Trace Urine Blood Negative Urine Nitrite Negative Ur Leukocyte Esterase Moderate (2+) H Urine RBC 0-2 Urine WBC 21-50 H Ur Squamous Epith Cells 0-2 Urine Bacteria None Seen Hyaline Casts 0-2 Urine Yeast Present 12/01/24 12/01/24 06:54 07:31 MCV MCH MCHC RDW Plt Count MPV Immature Gran % (Auto) Neut % (Auto) Lymph % (Auto) Noble % (Auto) Eos % (Auto) Baso % (Auto) Lymph # (Auto) Noble # (Auto) Eos # (Auto) Baso # (Auto) Abs Immat Gran (auto) Absolute Neuts (auto) Absolute Nucleated RBC Nucleated RBC % (auto) Hold Purple Top SEE NOTE PT INR Anion Gap 16 Estim Creat Clear Calc 36.1 Estimated GFR 51 POC Glucose 222 H Random Glucose 207 H Lactic Acid Calcium 8.7 Magnesium Total Bilirubin Direct Bilirubin AST ALT Alkaline Phosphatase B-Natriuretic Peptide Total Protein Albumin TSH Free T4 Urine Color Urine Appearance Urine pH Ur Specific [place] Urine Protein Urine Glucose (UA) Urine Ketones Urine Blood Urine Nitrite Ur Leukocyte Esterase Urine RBC Urine WBC Ur Squamous Epith Cells Urine Bacteria Hyaline Casts Urine Yeast Microbiology Microbiology Results: Microbiology 11/30/24 Unknown Urine Culture - Final Urine clean catch - Clean Catch Midstream Assessment and Plan (1) Chronic heart failure with preserved ejection fraction (HFpEF): Status: Acute Plan This is an 88-year-old female resident [facility] with h/o hypertension, hyperlipidemia, atrial fibrillation on anticoagulation, dementia, systolic and diastolic heart failure, hypothyroidism, insulin-dependent diabetes mellitus, chronic constipation on lactulose, and JADYN not on CPAP who was sent to the emergency department after an unwitnessed fall. Unwitnessed fall Patient unable to provide history due to dementia, daughter thinks she fell out of bed as she tries to get up on her own free Monitor overnight on tele Acute on chronic heart failure with combined systolic and diastolic CHF Received IV Lasix in the ED Continue baseline lasix wean o2 as able low na diet Moderate right pleural effusion Acute on chronic Would hold off on thoracentesis at this due to age and anticoagulation with Xarelto diarrhea began having diarrhea while in ED check stool studies hypothermia jennifer Gaviria we will be converted to lantus SSI, POCs, ADA diet Persistent atrial fibrillation Continue amiodarone, metoprolol Continue Xarelto for anticoagulation HLD Continues statin Hypothyroidism Continue Synthroid dvt ppx - Xarelto Code status-DNR/DNI Quality Stroke Does the patient have a stroke diagnosis?: No VTE Prior VTE?: No VTE Risk Level:: Medical - moderate - high VTE Device Contraindication: Treatment Not Indicated VTE Drug Contraindication: N/A - Med Ordered
--- NOTE | 2024-12-01 09:51 | MHC.CM.PN ---
IMM 12/01/24 DELIVERED TO DTR/HCP MEL [phone], MEL CONFIRMS PT IS IN LTC AT [facility] AND PLAN IS FOR PT TO RETURN. PT ADMITTED S/P FALL W/ACUTE ON CHRONIC CHF, MEL REPORTS PT IS MAINLY IN WC AND STAFF STANDS/PIVOTS PT FOR TRANSFERS.
[2024-12-01 12:15] LABS: Glucose, Whole Blood 222 mg/dL (60-115)
[2024-12-01 16:18] LABS: Glucose, Whole Blood 85 mg/dL (60-115)
[2024-12-01] MEDS: Rivaroxaban 15 MG TABLET PO (16:59)
[2024-12-01] MEDS: Furosemide 20 MG/2 ML VIAL IVPUSH (16:59)
[2024-12-01 20:53] LABS: Glucose, Whole Blood 91 mg/dL (60-115)
[2024-12-01] MEDS: Latanoprost 0.005 % Ophth Sol 2.5 ML DROPS 1 DROP EYE-BOTH (21:32)
[2024-12-02] VITALS (8 sets, daily range): BP systolic 124–170; BP diastolic 63–80; PULSE 68–87; RESP 16–20; TEMP 36.1–37.3; O2SAT 96–99
[2024-12-02 07:27] LABS: Glucose, Whole Blood 149 mg/dL (60-115)
--- NOTE | 2024-12-02 07:50 | HO.WOUND ---
Wound Consult: Initial 89yr old female admitted to [facility] on 11/30/24 - See progress notes and H&P for detailed history. Wound consult placed for MASD to gluteal fold. Chart review and photo documentation assessed. Etiology: MASD in the setting of incontinence Measurements: 2cm x 0.2cm x 0.1cm Wound Bed: superficial linear opening to the base of gluteal fold, moist pink base, surrounding skin intact and pink Drainage / Odor: none Edges: ? intact [place] wound: ? No Induration, Fluctuance or Warmth noted Pain: none Goals of Treatment: ? incontinence care, moisture management. Recommendations: 1. Turn and Reposition every 2 hours and as needed for patient comfort. Use pillows or wedges to support off loading positions. 2. Off Load all bony prominences with use of pillows and heel boots if needed. Apply Preventative foams where needed. 3. Monitor for incontinence and moisture control, use barrier creams when needed for prevention and treatment. 4. Provide adequate and supplemental nutrition. 5. Order or Continue low air loss mattress. 6. When applicable maintain blood glucose levels per Providers order. Gluteal fold/buttocks: Off Load Pressure with Q2 hr turns and use of pillows - Cleanse with PH balance spray or wipes, pat dry. ?Apply thin layer of barrier cream to affected area. Apply twice daily and Reapply thin layer PRN after each episode of incontinence. Re-consult wound care Nurse for wound deterioration or wound changes.
[2024-12-02] MEDS: Insulin Glargine,Hum.rec.anlog 100 UNIT/ML 10 ML VIAL 9 UNIT SUBCUT (08:04)
[2024-12-02] MEDS: Furosemide 20 MG/2 ML VIAL IVPUSH ×2 (08:05→18:17)
[2024-12-02] MEDS: Metoprolol Succinate ER 100 MG TAB.ER.24H PO (08:05)
[2024-12-02] MEDS: 0.9 % Sodium Chloride Flush 3 ML SYRINGE IVFLUSH ×2 (08:10→21:46)
[2024-12-02 11:26] LABS: Glucose, Whole Blood 269 mg/dL (60-115)
--- NOTE | 2024-12-02 14:57 | P.PNIM_ITS ---
Subjective Subjective Date of Service: 12/02/24 Physical Exam 2 Vital Signs: Vital Signs: Last Vital Signs Temp 98.7 F 12/02/24 10:59 Pulse 82 12/02/24 10:59 Resp 20 12/02/24 10:59 BP 170/80 H 12/02/24 10:59 Pulse Ox 97 12/02/24 10:59 O2 Del Method Nasal Cannula 12/02/24 10:59 O2 Flow Rate 1 12/02/24 10:59 Oxygen Flow Rate 3 11/30/24 09:47 BMI result Body Mass Index 25.8 Objective Data Active Medications Acetaminophen (Acetaminophen 325 Mg Tablet) 650 mg PO Q6H PRN PRN Reason: Pain, Mild 1-3,fever,headache Last Admin: 12/01/24 12:45 Dose: 650 mg Documented By: KRUPA Albuterol/Ipratropium (Albuterol/Iprat 2.5/0.5mg 3 Ml Ampul.Neb) 3 ml INHALE RQ6H PRN PRN Reason: Non-Productive Cough Amiodarone HCl (Amiodarone Hcl 200 Mg Tablet) 200 mg PO DAILY [facility] Last Admin: 12/02/24 08:05 Dose: 200 mg Documented By: ELLYN Atorvastatin Calcium (Atorvastatin Calcium 10 Mg Tablet) 10 mg PO DAILY [facility] Last Admin: 12/02/24 08:05 Dose: 10 mg Documented By: ELLYN Bisacodyl (Bisacodyl 10 Mg Supp.Rect) 10 mg [place] DAILY PRN PRN Reason: Constipation Calcitriol (Calcitriol 0.25 Mcg Capsule) 0.25 mcg PO Q48H [facility] Last Admin: 11/30/24 14:57 Dose: 0.25 mcg Documented By: JASPER Calcium Carbonate (Calcium Carbonate 750 Mg Tab.Chew) 750 mg PO Q4H PRN PRN Reason: Heartburn Dextrose (Dextrose 50 % 25 Gm/50 Ml Syringe) 25 gm IVPUSH Q15M PRN; Protocol PRN Reason: per Hypoglycemia Standing Ord. Furosemide (Furosemide 20 Mg/2 Ml Vial) 20 mg IVPUSH BID@0900,1800 [facility]; Protocol Last Admin: 12/02/24 08:05 Dose: 20 mg Documented By: ELLYN Glucose (Glucose Gel 15 Gm Gel..Gram.) 15 gm PO Q15M PRN; Protocol PRN Reason: per Hypoglycemia Standing Ord. Insulin Glargine (Insulin Glargine,Hum.Rec.Anlog 100 Unit/Ml 10 Ml Vial) 9 unit SUBCUT DAILY [facility] Last Admin: 12/02/24 08:04 Dose: 9 unit Documented By: ELLYN Insulin Human Lispro (Insulin Lispro 100 Unit/Ml 3 Ml Vial) 0 unit SUBCUT QIDACHS [facility]; Protocol Last Admin: 12/02/24 12:24 Dose: 6 unit Documented By: ELLYN Lactulose (Lactulose 20 Gm/30 Ml Solution) 20 gm PO DAILY PRN PRN Reason: for constipation Latanoprost (Latanoprost 0.005 % Ophth Liseth 2.5 Ml Drops) 1 drop EYE-BOTH BEDTIME [facility] Last Admin: 12/01/24 21:32 Dose: 1 drop Documented By: CITLALLI Levothyroxine Sodium (Levothyroxine Sodium 150 Mcg Tablet) 150 mcg PO DAILY@0600 [facility] Last Admin: 12/02/24 05:45 Dose: 150 mcg Documented By: CITLALLI Magnesium Hydroxide (Milk Of Magnesia 30 Ml Oral.Susp) 30 ml PO DAILY PRN PRN Reason: Constipation Melatonin (Melatonin 3 Mg Tablet) 6 mg PO BEDTIME PRN PRN Reason: Insomnia Melatonin (Melatonin 3 Mg Tablet) 6 mg PO BEDTIME PRN PRN Reason: Insomnia Metoprolol Succinate (Metoprolol Succinate Er 100 Mg Tab.Er.24h) 100 mg PO DAILY [facility]; Protocol Last Admin: 12/02/24 08:05 Dose: 100 mg Documented By: ELLYN Multivitamins/Vitamin C (Multivitamin Tablet) 1 tab PO DAILY [facility] Last Admin: 12/02/24 08:05 Dose: 1 tab Documented By: ELLYN Rivaroxaban (Rivaroxaban 15 Mg Tablet) 15 mg PO DAILY@1700 [facility] Last Admin: 12/01/24 16:59 Dose: 15 mg Documented By: KRUPA Senna/Docusate Sodium (Sennosides/Docusate Sodium Tablet) 1 tab PO BID [facility] Last Admin: 12/02/24 08:05 Dose: 1 tab Documented By: ELLYN Sodium Chloride (0.9 % Sodium Chloride Flush 3 Ml Syringe) 3 ml IVFLUSH QSHIFT [facility] Last Admin: 12/02/24 08:10 Dose: 3 ml Documented By: ELLYN Vitamin D (Cholecalciferol (Vitamin D3) 25 Mcg Tablet) 25 mcg PO DAILY [facility] Last Admin: 12/02/24 08:05 Dose: 25 mcg Documented By: ELLYN Labs 11/30/24 10:30 12/01/24 06:54 Labs: Laboratory Results - last 24 hr 12/01/24 12/01/24 12/02/24 16:14 19:55 07:07 POC Glucose 85 91 149 H 12/02/24 10:56 POC Glucose 269 H Microbiology Microbiology Results: Microbiology 11/30/24 10:47 Blood Culture - Preliminary Blood - Venous No growth after 48 hours. 11/30/24 10:30 Blood Culture - Preliminary Blood - Venous No growth after 48 hours. 11/30/24 Unknown Urine Culture - Preliminary Urine Catheterized - Straight Catheter Yeast Staphylococcus species Assessment and Plan (1) Pleural effusion: Status: Acute Plan 88-year-old female resident [facility] with h/o hypertension, hyperlipidemia, atrial fibrillation on anticoagulation, dementia, systolic and diastolic heart failure, hypothyroidism, insulin-dependent diabetes mellitus, chronic constipation on lactulose, and JADYN not on CPAP who was sent to the emergency department after an unwitnessed fall. Moderate right pleural effusion Acute on chronic Moderate size effusion, will repeat chest CT tomorrow to assess for improvement with IV lasix Discussed with daughter and she stated that the family is not inclined on doing thoracentesis Depending on chest ct results and patients condition (if not improved), Hospice consult would seem to be the next step Acute on chronic heart failure with combined systolic and diastolic CHF IV lasix wean o2 as able low na diet Unwitnessed fall Patient unable to provide history due to dementia, daughter thinks she fell out of bed as she tries to get up on her own Diarrhea. Resolved began having diarrhea while in ED stool studies negative Hypothermia. Resolved Treated with jennifer huramirezer DM2 lantus SSI, POCs, ADA diet Persistent atrial fibrillation Continue amiodarone, metoprolol Continue Xarelto for anticoagulation HLD Continues statin Hypothyroidism TSH 14.98, normal free T4 on 150 mcg of Synthroid recheck lab in 2-4 weeks dvt ppx - Xarelto Code status-DNR/DNI Quality Stroke Does the patient have a stroke diagnosis?: No VTE Prior VTE?: No VTE Risk Level:: Medical - moderate - high VTE Device Contraindication: Treatment Not Indicated VTE Drug Contraindication: N/A - Med Ordered
[2024-12-02 15:47] LABS: Glucose, Whole Blood 213 mg/dL (60-115)
[2024-12-02] MEDS: Rivaroxaban 15 MG TABLET PO (16:15)
[2024-12-02 21:05] LABS: Glucose, Whole Blood 115 mg/dL (60-115)
[2024-12-02] MEDS: Latanoprost 0.005 % Ophth Sol 2.5 ML DROPS 1 DROP EYE-BOTH (21:36)
[2024-12-03] VITALS (10 sets, daily range): BP systolic 108–152; BP diastolic 57–81; PULSE 57–80; RESP 16–18; TEMP 35.3–36.9; O2SAT 83–100
[2024-12-03 07:06] LABS: Glucose, Whole Blood 158 mg/dL (60-115)
[2024-12-03] MEDS: Insulin Glargine,Hum.rec.anlog 100 UNIT/ML 10 ML VIAL 9 UNIT SUBCUT (08:30)
[2024-12-03] MEDS: Furosemide 20 MG/2 ML VIAL IVPUSH ×2 (08:31→16:39)
[2024-12-03] MEDS: Metoprolol Succinate ER 100 MG TAB.ER.24H PO (08:31)
[2024-12-03] MEDS: 0.9 % Sodium Chloride Flush 3 ML SYRINGE IVFLUSH ×2 (08:36→16:44)
[2024-12-03 10:25] LABS: B Type Natriuretic Peptide 261 pg/mL (<100)
--- NOTE | 2024-12-03 10:35 | MHC.CM.PN ---
Per ROUNDS discussion, Patient is not yet medically cleared for dc (IV Lasix & repeat CT); returning to LTC is the goal and CM will continue to follow.
[2024-12-03 10:36] LABS: Anion Gap 13 (12-20); Blood Urea Nitrogen 20 mg/dL (9-16); Calcium 8.7 mg/dL (8.4-10.2); Carbon Dioxide 28 mmol/L (22-29); Chloride 97 mmol/L (96-108); Creatinine Clr Calc Pharmacy 30.4; Estimated Glomerular Filt Rate 42; Magnesium 2.3 mg/dL (1.6-2.6); Potassium 4.3 mmol/L (3.3-5.1); Sodium 134 mmol/L (135-145)
[2024-12-03 10:54] LABS: Glucose, Whole Blood 295 mg/dL (60-115)
[2024-12-03 15:59] LABS: Glucose, Whole Blood 140 mg/dL (60-115)
--- NOTE | 2024-12-03 16:33 | HO.PM.IMPN ---
Subjective Subjective Date of Service: 12/03/24 Interval History: denies any dyspnea CT without change in pleural effusions Review of Systems Review of Systems: Yes all other systems are reviewed and are negative Physical Exam Vital Signs: Vital Signs: Last Vital Signs Temp 96.4 F L 12/03/24 15:12 Pulse 60 12/03/24 15:12 Resp 18 12/03/24 15:12 BP 149/81 H 12/03/24 15:12 Pulse Ox 99 12/03/24 15:12 O2 Del Method Nasal Cannula 12/03/24 15:12 O2 Flow Rate 1 12/03/24 15:12 Oxygen Flow Rate 3 11/30/24 09:47 BMI result Body Mass Index 25.8 Gen: in no acute distress HEENT: sclera anicteric, moist mucus membranes Neck: supple Lungs: diminished bilaterally Heart: irregular, no murmurs Abd: soft, non-tender, non-distended Ext: no edema Skin: warm/well-perfused Neuro: alert and oriented to self/place Psych: appropriate affect Objective Data Active Medications Acetaminophen (Acetaminophen 325 Mg Tablet) 650 mg PO Q6H PRN PRN Reason: Pain, Mild 1-3,fever,headache Last Admin: 12/01/24 12:45 Dose: 650 mg Documented By: KRUPA Albuterol/Ipratropium (Albuterol/Iprat 2.5/0.5mg 3 Ml Ampul.Neb) 3 ml INHALE RQ6H PRN PRN Reason: Non-Productive Cough Amiodarone HCl (Amiodarone Hcl 200 Mg Tablet) 200 mg PO DAILY [facility] Last Admin: 12/03/24 08:33 Dose: 200 mg Documented By: BREA Atorvastatin Calcium (Atorvastatin Calcium 10 Mg Tablet) 10 mg PO DAILY [facility] Last Admin: 12/03/24 08:34 Dose: 10 mg Documented By: BREA Bisacodyl (Bisacodyl 10 Mg Supp.Rect) 10 mg [place] DAILY PRN PRN Reason: Constipation Calcitriol (Calcitriol 0.25 Mcg Capsule) 0.25 mcg PO Q48H [facility] Last Admin: 12/02/24 16:15 Dose: 0.25 mcg Documented By: FOSTEKR Calcium Carbonate (Calcium Carbonate 750 Mg Tab.Chew) 750 mg PO Q4H PRN PRN Reason: Heartburn Dextrose (Dextrose 50 % 25 Gm/50 Ml Syringe) 25 gm IVPUSH Q15M PRN; Protocol PRN Reason: per Hypoglycemia Standing Ord. Furosemide (Furosemide 20 Mg/2 Ml Vial) 20 mg IVPUSH BID@0900,1800 [facility]; Protocol Last Admin: 12/03/24 08:31 Dose: 20 mg Documented By: BREA Glucose (Glucose Gel 15 Gm Gel..Gram.) 15 gm PO Q15M PRN; Protocol PRN Reason: per Hypoglycemia Standing Ord. Insulin Glargine (Insulin Glargine,Hum.Rec.Anlog 100 Unit/Ml 10 Ml Vial) 9 unit SUBCUT DAILY [facility] Last Admin: 12/03/24 08:30 Dose: 9 unit Documented By: BREA Insulin Human Lispro (Insulin Lispro 100 Unit/Ml 3 Ml Vial) 0 unit SUBCUT QIDACHS [facility]; Protocol Last Admin: 12/03/24 11:46 Dose: 6 unit Documented By: BREA Lactulose (Lactulose 20 Gm/30 Ml Solution) 20 gm PO DAILY PRN PRN Reason: for constipation Latanoprost (Latanoprost 0.005 % Ophth Liseth 2.5 Ml Drops) 1 drop EYE-BOTH BEDTIME [facility] Last Admin: 12/02/24 21:36 Dose: 1 drop Documented By: CITLALLI Levothyroxine Sodium (Levothyroxine Sodium 175 Mcg Tablet) 175 mcg PO DAILY@0600 [facility] Magnesium Hydroxide (Milk Of Magnesia 30 Ml Oral.Susp) 30 ml PO DAILY PRN PRN Reason: Constipation Melatonin (Melatonin 3 Mg Tablet) 6 mg PO BEDTIME PRN PRN Reason: Insomnia Last Admin: 12/03/24 00:55 Dose: 6 mg Documented By: CITLALLI Melatonin (Melatonin 3 Mg Tablet) 6 mg PO BEDTIME PRN PRN Reason: Insomnia Metoprolol Succinate (Metoprolol Succinate Er 100 Mg Tab.Er.24h) 100 mg PO DAILY [facility]; Protocol Last Admin: 12/03/24 08:31 Dose: 100 mg Documented By: BREA Multivitamins/Vitamin C (Multivitamin Tablet) 1 tab PO DAILY [facility] Last Admin: 12/03/24 08:55 Dose: 1 tab Documented By: BREA Rivaroxaban (Rivaroxaban 15 Mg Tablet) 15 mg PO DAILY@1700 [facility] Last Admin: 12/02/24 16:15 Dose: 15 mg Documented By: ELLYN Senna/Docusate Sodium (Sennosides/Docusate Sodium Tablet) 1 tab PO BID [facility] Last Admin: 12/03/24 08:34 Dose: 1 tab Documented By: BREA Sodium Chloride (0.9 % Sodium Chloride Flush 3 Ml Syringe) 3 ml IVFLUSH QSHIFT [facility] Last Admin: 12/03/24 08:36 Dose: 3 ml Documented By: BREA Vitamin D (Cholecalciferol (Vitamin D3) 25 Mcg Tablet) 25 mcg PO DAILY [facility] Last Admin: 12/03/24 08:33 Dose: 25 mcg Documented By: BREA Labs 11/30/24 10:30 12/03/24 09:16 Labs: Laboratory Results - last 24 hr 12/02/24 12/03/24 12/03/24 20:44 07:00 09:16 Anion Gap 13 Estim Creat Clear Calc 30.4 Estimated GFR 42 POC Glucose 115 158 H Random Glucose 258 H Calcium 8.7 Magnesium 2.3 B-Natriuretic Peptide 261 H 12/03/24 12/03/24 10:50 15:50 Anion Gap Estim Creat Clear Calc Estimated GFR POC Glucose 295 H 140 H Random Glucose Calcium Magnesium B-Natriuretic Peptide ITS Impressions Chest CT 12/03/24 09:37 IMPRESSION: 1. Moderate to large right pleural effusion without change. This causes subsegmental atelectasis of the right upper lobe and complete atelectasis of the right lower lobe, limiting evaluation for masses. 2. Tiny left pleural effusion. Electronically signed by: Akbar Denson MD 12/03/2024 10:40 AM EDT Microbiology Microbiology Results: Microbiology 11/30/24 Unknown Urine Culture - Final Urine Catheterized - Straight Catheter Amirah glabrata Staphylococcus aureus 11/30/24 10:47 Blood Culture - Preliminary Blood - Venous No growth after 48 hours. 11/30/24 10:30 Blood Culture - Preliminary Blood - Venous No growth after 48 hours. Assessment and Plan (1) Pleural effusion: Status: Acute Plan d4, 88yo F LTC resident at [facility] with HTN, HLD, AF on Xarelto, dementia, systolic/diastolic HF, hypothyroidism, DM2, chronic constipation, JADYN not on CPAP sent in to [facility] after unwitnessed fall R pleural effusion acute/chronic combined systolic/diastolic HF - continue IV furosemide, wean O2 as tolerated, not interested in doing thoracentesis, monitor I/O + wts + BNP + lytes diarrhea - resolved DM2 - basal-bolus insulin hypothermia - Pradeep Hugger as needed, treated hypothyroidism as below persistent AF - amiodarone, metoprolol hypothyroidism - TSH 14.98; increase levothyroxine from 150 to 175 mcg/d and recheck TSH in 4 wk HLD - statin VTE ppx - Xarelto dispo - eventual return to LTC In my clinical judgment, the patient requires continued inpatient hospitalization for the following reasons: diuresis IV Total time managing care of this patient today: 40 minutes. Quality Stroke Does the patient have a stroke diagnosis?: No VTE Prior VTE?: No VTE Risk Level:: Medical - moderate - high VTE Device Contraindication: Treatment Not Indicated VTE Drug Contraindication: N/A - Med Ordered
[2024-12-03] MEDS: Rivaroxaban 15 MG TABLET PO (16:40)
[2024-12-03 20:19] LABS: Glucose, Whole Blood 156 mg/dL (60-115)
[2024-12-03] MEDS: Latanoprost 0.005 % Ophth Sol 2.5 ML DROPS 1 DROP EYE-BOTH (21:19)
[2024-12-04] MEDS: 0.9 % Sodium Chloride Flush 3 ML SYRINGE IVFLUSH ×4 (01:56→21:00)
[2024-12-04] MEDS: OLANZapine 10 MG VIAL 2.5 MG IM (01:57)
[2024-12-04 03:21] VITALS: BP 137/61; PULSE 74; RESP 18; TEMP 36.6; O2SAT 94
[2024-12-04 06:59] LABS: Glucose, Whole Blood 176 mg/dL (60-115)
[2024-12-04 07:24] VITALS: BP 141/70; PULSE 73; RESP 20; TEMP 36; O2SAT 92
[2024-12-04] MEDS: Furosemide 20 MG/2 ML VIAL IVPUSH ×2 (09:31→17:33)
[2024-12-04] MEDS: Insulin Glargine,Hum.rec.anlog 100 UNIT/ML 10 ML VIAL 9 UNIT SUBCUT (09:32)
[2024-12-04 10:56] VITALS: BP 129/78; PULSE 54; RESP 18; TEMP 36.6; O2SAT 93
[2024-12-04 11:10] LABS: Glucose, Whole Blood 299 mg/dL (60-115)
[2024-12-04] MEDS: Metoprolol Succinate ER 100 MG TAB.ER.24H PO (12:02)
--- NOTE | 2024-12-04 12:42 | P.PNIM_ITS ---
Subjective Subjective Date of Service: 12/04/24 Interval History: off O2, denies any dyspnea Review of Systems Review of Systems: Yes all other systems are reviewed and are negative Physical Exam 2 Vital Signs: Vital Signs: Last Vital Signs Temp 97.8 F 12/04/24 10:56 Pulse 54 12/04/24 10:56 Resp 18 12/04/24 10:56 BP 129/78 12/04/24 10:56 Pulse Ox 93 12/04/24 10:56 O2 Del Method Room Air 12/04/24 10:56 O2 Flow Rate 1 12/04/24 03:21 Oxygen Flow Rate 3 11/30/24 09:47 BMI result Body Mass Index 25.8 Gen: in no acute distress HEENT: sclera anicteric, moist mucus membranes Neck: supple Lungs: diminished bilaterally Heart: irregular, no murmurs Abd: soft, non-tender, non-distended Ext: no edema Skin: warm/well-perfused Neuro: alert and oriented to self/place Psych: appropriate affect Objective Data Active Medications Acetaminophen (Acetaminophen 325 Mg Tablet) 650 mg PO Q6H PRN PRN Reason: Pain, Mild 1-3,fever,headache Last Admin: 12/03/24 16:40 Dose: 650 mg Documented By: SANTSARMAD Albuterol/Ipratropium (Albuterol/Iprat 2.5/0.5mg 3 Ml Ampul.Neb) 3 ml INHALE RQ6H PRN PRN Reason: Non-Productive Cough Amiodarone HCl (Amiodarone Hcl 200 Mg Tablet) 200 mg PO DAILY [facility] Last Admin: 12/04/24 09:31 Dose: 200 mg Documented By: RAGHAVENDRA Atorvastatin Calcium (Atorvastatin Calcium 10 Mg Tablet) 10 mg PO DAILY [facility] Last Admin: 12/04/24 09:31 Dose: 10 mg Documented By: RAGHAVENDRA Bisacodyl (Bisacodyl 10 Mg Supp.Rect) 10 mg AK DAILY PRN PRN Reason: Constipation Calcitriol (Calcitriol 0.25 Mcg Capsule) 0.25 mcg PO Q48H [facility] Last Admin: 12/02/24 16:15 Dose: 0.25 mcg Documented By: FOSTEKBerny Calcium Carbonate (Calcium Carbonate 750 Mg Tab.Chew) 750 mg PO Q4H PRN PRN Reason: Heartburn Dextrose (Dextrose 50 % 25 Gm/50 Ml Syringe) 25 gm IVPUSH Q15M PRN; Protocol PRN Reason: per Hypoglycemia Standing Ord. Furosemide (Furosemide 20 Mg/2 Ml Vial) 20 mg IVPUSH BID@0900,1800 [facility]; Protocol Last Admin: 12/04/24 09:31 Dose: 20 mg Documented By: RAGHAVENDRA Glucose (Glucose Gel 15 Gm Gel..Gram.) 15 gm PO Q15M PRN; Protocol PRN Reason: per Hypoglycemia Standing Ord. Insulin Glargine (Insulin Glargine,Hum.Rec.Anlog 100 Unit/Ml 10 Ml Vial) 9 unit SUBCUT DAILY [facility] Last Admin: 12/04/24 09:32 Dose: 9 unit Documented By: RAGHAVENDRA Insulin Human Lispro (Insulin Lispro 100 Unit/Ml 3 Ml Vial) 0 unit SUBCUT QIDACHS [facility]; Protocol Last Admin: 12/04/24 11:52 Dose: 6 unit Documented By: RAGHAVENDRA Lactulose (Lactulose 20 Gm/30 Ml Solution) 20 gm PO DAILY PRN PRN Reason: for constipation Latanoprost (Latanoprost 0.005 % Ophth Liseth 2.5 Ml Drops) 1 drop EYE-BOTH BEDTIME [facility] Last Admin: 12/03/24 21:19 Dose: 1 drop Documented By: HAILEY Levothyroxine Sodium (Levothyroxine Sodium 175 Mcg Tablet) 175 mcg PO DAILY@0600 [facility] Last Admin: 12/04/24 05:57 Dose: 175 mcg Documented By: HAILEY Magnesium Hydroxide (Milk Of Magnesia 30 Ml Oral.Susp) 30 ml PO DAILY PRN PRN Reason: Constipation Melatonin (Melatonin 3 Mg Tablet) 6 mg PO BEDTIME PRN PRN Reason: Insomnia Last Admin: 12/03/24 21:09 Dose: 6 mg Documented By: HAILEY Melatonin (Melatonin 3 Mg Tablet) 6 mg PO BEDTIME PRN PRN Reason: Insomnia Metoprolol Succinate (Metoprolol Succinate Er 100 Mg Tab.Er.24h) 100 mg PO DAILY [facility]; Protocol Last Admin: 12/04/24 12:02 Dose: 100 mg Documented By: RAGHAVENDRA Multivitamins/Vitamin C (Multivitamin Tablet) 1 tab PO DAILY [facility] Last Admin: 12/04/24 09:31 Dose: 1 tab Documented By: RAGHAVENDRA Rivaroxaban (Rivaroxaban 15 Mg Tablet) 15 mg PO DAILY@1700 [facility] Last Admin: 12/03/24 16:40 Dose: 15 mg Documented By: BREA Senna/Docusate Sodium (Sennosides/Docusate Sodium Tablet) 1 tab PO BID [facility] Last Admin: 12/04/24 09:31 Dose: 1 tab Documented By: RAGHAVENDRA Sodium Chloride (0.9 % Sodium Chloride Flush 3 Ml Syringe) 3 ml IVFLUSH QSHIFT [facility] Last Admin: 12/04/24 09:32 Dose: 3 ml Documented By: RAGHAVENDRA Vitamin D (Cholecalciferol (Vitamin D3) 25 Mcg Tablet) 25 mcg PO DAILY [facility] Last Admin: 12/04/24 09:31 Dose: 25 mcg Documented By: RAGHAVENDRA Labs 11/30/24 10:30 12/03/24 09:16 Labs: Laboratory Results - last 24 hr 12/03/24 12/03/24 12/04/24 15:50 19:44 06:49 POC Glucose 140 H 156 H 176 H 12/04/24 11:03 POC Glucose 299 H Assessment and Plan (1) Pleural effusion: Status: Acute Plan d5, 88yo F LTC resident at [facility] with HTN, HLD, AF on Xarelto, dementia, systolic/diastolic HF, hypothyroidism, DM2, chronic constipation, JADYN not on CPAP sent in to [facility] after unwitnessed fall R pleural effusion acute/chronic combined systolic/diastolic HF - continue IV furosemide, weaned off O2, not interested in doing thoracentesis, monitor I/O + wts + BNP + lytes, negative 2430 thus far MSSA in urine - suspect colonization, BCx negative, ID consult pending diarrhea - resolved DM2 - basal-bolus insulin hypothermia - Pradeep Hugger as needed, treated hypothyroidism as below persistent AF - amiodarone, metoprolol hypothyroidism - TSH 14.98; increased levothyroxine from 150 to 175 mcg/d and recheck TSH in 4 wk HLD - statin VTE ppx - Xarelto dispo - eventual return to LTC In my clinical judgment, the patient requires continued inpatient hospitalization for the following reasons: diuresis IV Total time managing care of this patient today: 40 minutes. Quality Stroke Does the patient have a stroke diagnosis?: No VTE Prior VTE?: No VTE Risk Level:: Medical - moderate - high VTE Device Contraindication: Treatment Not Indicated VTE Drug Contraindication: N/A - Med Ordered
[2024-12-04 15:39] VITALS: BP 149/76; PULSE 67; RESP 18; TEMP 36.8; O2SAT 95
[2024-12-04 16:20] LABS: Glucose, Whole Blood 165 mg/dL (60-115)
[2024-12-04] MEDS: Rivaroxaban 15 MG TABLET PO (17:33)
[2024-12-04 19:31] VITALS: BP 159/7; PULSE 69; RESP 17; TEMP 36.1; O2SAT 96
[2024-12-04] MEDS: Latanoprost 0.005 % Ophth Sol 2.5 ML DROPS 1 DROP EYE-BOTH (21:00)
[2024-12-04 21:06] LABS: Glucose, Whole Blood 117 mg/dL (60-115)
[2024-12-04 23:25] VITALS: BP 154/70; PULSE 68; RESP 17; TEMP 36.4; O2SAT 92
[2024-12-05 04:00] VITALS: BP 166/74; PULSE 74; RESP 16; TEMP 36.3; O2SAT 95
[2024-12-05 06:59] LABS: Glucose, Whole Blood 206 mg/dL (60-115)
[2024-12-05 07:06] VITALS: BP 160/84; PULSE 84; RESP 18; TEMP 36.7; O2SAT 96
--- NOTE | 2024-12-05 07:14 | P.CDIM_ITS ---
PROVIDER RESPONSE TEXT: To clarify, the appropriate diagnosis supported by the clinical indicators: Chronic respiratory failure with hypoxia QUERY TEXT: PHYSICIAN'S DOCUMENTATION REQUEST Date of Query: 12/04/2024 09:21 AM EDT Patient Name: Gerri Sanchez Admit Date: 11/30/2024 Dear Mauricio Coyle MD, A review of the medical record indicates additional documentation may be needed. Please review below and update the documentation accordingly. Clinical Indicators: patient is on 3L oxygen at [facility] respiratory rate 14-20 during this stay Please clarify which of the following accurately represents the patient's respiratory status: Chronic respiratory failure with hypoxia Hypoxia Other (explain) Clinically unable to determine (explain) Thank you, Alysa Dooley RN Use of terms such as suspected, likely, concern for, or probable (associated with a specific diagnosis that is being evaluated, monitored, or treated as if it exists) are acceptable and can be coded in the inpatient setting, when documented at the time of discharge. Please use your independent medical judgment in providing your response. THIS QUERY IS PART OF THE PERMANENT MEDICAL RECORD
[2024-12-05 08:13] LABS: B Type Natriuretic Peptide 295 pg/mL (<100)
[2024-12-05 08:16] LABS: Blood Urea Nitrogen 22 mg/dL (9-16); Calcium 9.1 mg/dL (8.4-10.2); Creatinine Clr Calc Pharmacy 31.3; Estimated Glomerular Filt Rate 43; Magnesium 2.3 mg/dL (1.6-2.6)
[2024-12-05 08:25] LABS: Anion Gap 16 (12-20); Carbon Dioxide 32 mmol/L (22-29); Chloride 95 mmol/L (96-108); Potassium 3.7 mmol/L (3.3-5.1); Sodium 139 mmol/L (135-145)
[2024-12-05] MEDS: Furosemide 20 MG/2 ML VIAL IVPUSH (08:34)
[2024-12-05] MEDS: Metoprolol Succinate ER 100 MG TAB.ER.24H PO (08:35)
[2024-12-05] MEDS: 0.9 % Sodium Chloride Flush 3 ML SYRINGE IVFLUSH (08:35)
[2024-12-05] MEDS: Insulin Glargine,Hum.rec.anlog 100 UNIT/ML 10 ML VIAL 9 UNIT SUBCUT (08:36)
--- NOTE | 2024-12-05 10:37 | MHC.CM.PN ---
Second IMM given 12/05. Pt is medically cleared for discharge to LTC at [facility] today, she will transport there via BLS/Nicole. Pts daughter/HCP Yue was called and notified of discharge.
--- NOTE | 2024-12-05 10:51 | PM.DS ---
DS: Providers Provider Date of Service: 12/05/24 Date of admission: 11/30/24 13:58 Date of discharge: 12/05/24 Primary care physician: Allyn Lovelace MD Consults: 11/30/24 17:51 Consult to Wound Care Routine Reason for consultation: MASD to crease of buttocks Has provider been notified: Yes 12/03/24 16:35 Consult to Infectious Diseases Routine Consulting Provider: [facility] Reason for consultation: MSSA in urine DS: Diagnosis Discharge Diagnosis (1) Pleural effusion: Status: Acute (2) Acute on chronic heart failure with mildly reduced ejection fraction (HFmrEF): Status: Acute (3) Acute respiratory failure with hypoxia: Status: Acute (4) Bacteriuria: Status: Acute (5) Hypothyroid: Status: Acute DS: Summary Hospital Course Hospital Course: From the history and physical by the admitting hospitalist, TRINI Carballo, 11/30/24: This is an 89-year-old female with a history of dementia who resides at long-term care at [facility] who was brought into the emergency department after an unwitnessed fall. Patient's history is primarily obtained from the daughter at the bedside due to the patient's advanced dementia. approximately 1 week of patient was noted to be hypoxic and was started on 3 L by nasal cannula. Outpatient chest CT showed a moderate size right pleural effusion. Her dose of Lasix was increased from 20 mg b.i.d. to 40 mg in the morning and 20 mg at night. She has been tolerating her oxygen and has no significant complaints of shortness of breath. She is minimally ambulatory and primarily gets about with a wheelchair. This morning she had an unwitnessed fall, staff workers heard a thump and came and found her on the floor by the bed. Her daughter states that it is not uncommon for her to try to get out of bed if the staff members do not get her up early enough. She had CT scan of the chest, cervical spine, abdomen and head which were unremarkable for any fractures or any acute changes. Chest CT redemonstrated moderate right pleural effusion with some evidence of pulmonary edema. Her BNP was 337 which is similar to her recent baseline. She received a dose of IV Lasix. Urinalysis was questionable for UTI and she received a dose of IV ceftriaxone. She will be admitted for further management of right pleural effusion, CHF, on went 88yo F LTC resident at [facility] with HTN, HLD, AF on Xarelto, dementia, HF with mildly reduced LVEF (51% , hypothyroidism, DM2, chronic constipation, and JADYN not on CPAP [place] [facility] [place] at [place]. Hospital course by problem: R pleural effusion acute/chronic HF with mildly reduced EF - diuresed net negative 3090 mL this admission with IV furosemide and weaned off oxygen; discharged on furosemide 40 mg qam + 20 mg qpm with instructions to increase pm dose to 40 mg in case of weight gain bacteruria - initial UCx contaminated; repeat with yeast and MSSA; per ID, represents colonization and not infection so antibiotics not continued hypothermia - Pradeep Hugger as needed; resolved; treated hypothyroidism as below hypothyroidism - TSH 14.98; increased levothyroxine from 150 to 175 mcg/d and recheck TSH in 4 wk She was discharged back to [facility] for long-term care. Time Attestation Discharge Coordination Time (in mins): 35 Quality: Safe Use of Opioids Does Pt have an Active Cancer Diagnosis on the Problem List?: No Quality: Stroke Does the patient have a stroke diagnosis?: No Physical Exam Vital Signs: Vital Signs: Last Vital Signs Temp 98.1 F 12/05/24 07:06 Pulse 84 12/05/24 07:06 Resp 18 12/05/24 07:06 BP 160/84 H 12/05/24 07:06 Pulse Ox 96 12/05/24 07:06 O2 Del Method Room Air 12/05/24 07:06 O2 Flow Rate 1 12/04/24 03:21 Oxygen Flow Rate 3 11/30/24 09:47 BMI result Body Mass Index 25.8 Gen: in no acute distress HEENT: sclera anicteric, moist mucus membranes Neck: supple Lungs: diminished bilaterally Heart: irregular, no murmurs Abd: soft, non-tender, non-distended Ext: no edema Skin: warm/well-perfused Neuro: alert and oriented to self/place Psych: appropriate affect DS: Data Data Completed and Pending Completed studies during hospitalization [Text1]: Laboratory Results WBC 7.6 X10*3/uL (4.8-10.8) 11/30/24 10:30 RBC 3.59 X10*6/uL (4.20-5.50) L 11/30/24 10:30 Hgb 11.4 g/dl (12.0-16.0) L 11/30/24 10:30 Hct 35.4 % (37.0-47.0) L 11/30/24 10:30 MCV 98.6 fL (80.0-98.0) H 11/30/24 10:30 MCH 31.8 pg (27.0-33.0) 11/30/24 10:30 MCHC 32.2 g/dl (31.0-35.0) 11/30/24 10:30 RDW 15.9 % (11.0-16.0) 11/30/24 10:30 Plt Count 254 X10*3/uL (160-400) 11/30/24 10:30 MPV 10.4 fL (9.4-12.3) 11/30/24 10:30 Immature Gran % (Auto) 0.4 % (0.0-0.4) 11/30/24 10:30 Neut % (Auto) 72.2 % (45-73) 11/30/24 10:30 Lymph % (Auto) 7.5 % (20-40) L 11/30/24 10:30 [place] % (Auto) 7.9 % (2-11) 11/30/24 10:30 Eos % (Auto) 10.7 % (0-4) H 11/30/24 10:30 Baso % (Auto) 1.3 % (0-2) 11/30/24 10:30 Lymph # (Auto) 0.6 X10*3/uL (1.2-4.9) L 11/30/24 10:30 [place] # (Auto) 0.6 X10*3/uL (0.1-1.2) 11/30/24 10:30 Eos # (Auto) 0.8 X10*3/uL (0.0-0.4) H 11/30/24 10:30 Baso # (Auto) 0.1 X10*3/uL (0.0-0.2) 11/30/24 10:30 Abs Immat Gran (auto) 0.03 X10*3/uL (0.00-0.03) 11/30/24 10:30 Absolute Neuts (auto) 5.5 x10*3/uL (2.0-8.3) 11/30/24 10:30 Absolute Nucleated RBC 0.000 X10*3/uL (0.0-0.012) 11/30/24 10:30 Nucleated RBC % (auto) 0.0 /100WBC (0.0-0.2) 11/30/24 10:30 Hold Purple Top SEE NOTE 12/05/24 06:44 PT 23.2 SEC (10.9-12.4) H D 11/30/24 10:30 INR 2.0 (0.9-1.1) H 11/30/24 10:30 Sodium 139 mmol/L (135-145) 12/05/24 06:44 Potassium 3.7 mmol/L (3.3-5.1) 12/05/24 06:44 Chloride 95 mmol/L (96-108) L 12/05/24 06:44 Carbon Dioxide 32 mmol/L (22-29) H 12/05/24 06:44 Anion Gap 16 (12-20) 12/05/24 06:44 BUN 22 mg/dL (9-16) H 12/05/24 06:44 Creatinine 1.18 mg/dL (0.5-1.4) 12/05/24 06:44 Estim Creat Clear Calc 31.3 12/05/24 06:44 Estimated GFR 43 12/05/24 06:44 POC Glucose 206 mg/dL (60-115) H 12/05/24 06:53 Random Glucose 230 mg/dL (60-115) H 12/05/24 06:44 Lactic Acid 1.5 mmol/L (0.5-2.0) 11/30/24 10:30 Calcium 9.1 mg/dL (8.4-10.2) 12/05/24 06:44 Magnesium 2.3 mg/dL (1.6-2.6) 12/05/24 06:44 Total Bilirubin 0.6 mg/dL (0.0-1.0) 11/30/24 10:30 Direct Bilirubin 0.3 mg/dL (0.0-0.5) 11/30/24 10:30 AST 37 U/L (5-31) H 11/30/24 10:30 ALT 26 U/L (0-31) 11/30/24 10:30 Alkaline Phosphatase 143 U/L (39-117) H 11/30/24 10:30 Troponin I High Sens 6.3 ng/L (<3.5-17.0) 11/30/24 10:30 B-Natriuretic Peptide 295 pg/mL (<100) H 12/05/24 06:44 Total Protein 7.1 g/dL (6.5-8.0) 11/30/24 10:30 Albumin 4.1 g/dL (3.5-5.0) 11/30/24 10:30 TSH 14.98 uIU/mL (0.32-4.0) H 11/30/24 10:30 Free T4 1.02 ng/dL (0.71-1.85) 11/30/24 10:30 Urine Color Yellow 11/30/24 12:05 Urine Appearance Clear 11/30/24 12:05 Urine pH 7.5 (5.0-9.0) 11/30/24 12:05 Ur Specific [place] 1.020 (1.005-1.025) 11/30/24 12:05 Urine Protein 30 (1+) mg/dL (Neg-Trace) H 11/30/24 12:05 Urine Glucose (UA) >=1000 mg/dL (Negative) H 11/30/24 12:05 Urine Ketones Trace mg/dL (Negative) 11/30/24 12:05 Urine Blood Negative (Negative) 11/30/24 12:05 Urine Nitrite Negative (Negative) 11/30/24 12:05 Ur Leukocyte Esterase Moderate (2+) (Negative) H 11/30/24 12:05 Urine RBC 0-2 /HPF (0-2) 11/30/24 12:05 Urine WBC 21-50 /HPF (0-5) H 11/30/24 12:05 Ur Squamous Epith Cells 0-2 /HPF (0-2) 11/30/24 12:05 Urine Bacteria None Seen (None Seen) 11/30/24 12:05 Hyaline Casts 0-2 /LPF (0-2) 11/30/24 12:05 Urine Yeast Present 11/30/24 12:05 Stl C. cayetanensis PCR Not Detected (Not Detect.) 11/30/24 16:41 Stool Rotavirus A PCR Not Detected (Not Detect.) 11/30/24 16:41 Stl Adenov F 40/41 PCR Not Detected (Not Detect.) 11/30/24 16:41 Stool Astrovirus (PCR) Not Detected (Not Detect.) 11/30/24 16:41 Stool Campylobacter PCR Not Detected (Not Detect.) 11/30/24 16:41 Stool Cryptosporidium PCR Not Detected (Not Detect.) 11/30/24 16:41 Stl Sh Tox Pr E STEC PCR Not Detected (Not Detect.) 11/30/24 16:41 Stool E coli O157 PCR Not Detected (Not Detect.) 11/30/24 16:41 Stl Enterotoxigenic E PCR Not Detected (Not Detect.) 11/30/24 16:41 Stool EPEC (PCR) Not Detected (Not Detect.) 11/30/24 16:41 Stool EAEC (PCR) Not Detected (Not Detect.) 11/30/24 16:41 Stl E. histolytica PCR Not Detected (Not Detect.) 11/30/24 16:41 Stool Giardia Lamblia PCR Not Detected (Not Detect.) 11/30/24 16:41 Stl P. shigelloides PCR Not Detected (Not Detect.) 11/30/24 16:41 Stool Salmonella PCR Not Detected (Not Detect.) 11/30/24 16:41 Stool Sapovirus (PCR) Not Detected (Not Detect.) 11/30/24 16:41 Stl Shigella/EIEC PCR Not Detected (Not Detect.) 11/30/24 16:41 St Y.enterocolitica PCR Not Detected (Not Detect.) 11/30/24 16:41 Stool Vibrio (PCR) Not Detected (Not Detect.) 11/30/24 16:41 Stl Vibrio cholerae PCR Not Detected (Not Detect.) 11/30/24 16:41 Stl Norovirus GI/GII PCR Not Detected (Not Detect.) 11/30/24 16:[address] 12/03/24 09:37 IMPRESSION: 1. Moderate to large right pleural effusion without change. This causes subsegmental atelectasis of the right upper lobe and complete atelectasis of the right lower lobe, limiting evaluation for masses. 2. Tiny left pleural effusion. Electronically signed by: Akbar Denson MD 12/03/2024 10:40 AM EDT RP Discharge Plan Discharge Anticipated Discharge Date/Time: 12/05/24 10:46 Patient Disposition: Xfer SNF Discharge Diagnosis: CHF exacerbation Pleural effusion Hypoxia Hypothyroidism Referrals: [facility] [Outside] - 1 Week Allyn Lovelace MD [Primary Care Provider, Medical] - 1 Week Discharge Medications: New furosemide [Lasix] 40 mg tablet 40 mg PO QAM Qty: 30 0RF furosemide [Lasix] 20 mg tablet 20 mg PO QPM Qty: 30 0RF Continued cholecalciferol (vitamin D3) 25 mcg (1,000 unit) capsule 25 mcg PO DAILY (DME) FreeStyle Madeline 14 Day Sensor Kit See Rx Instructions .ROUTE .MEDSUPPLY Qty: 1 6RF Rx Instructions: Dx: E11.65 As directed, 14 days (DME) FreeStyle Madeline 14 Day Sensor Kit See Rx Instructions .Route Qty: 6 3RF Rx Instructions: As directed amiodarone 200 mg tablet 200 mg PO DAILY 90 Days Qty: 90 2RF lactulose 10 gram/15 mL solution 30 ml PO DAILY PRN (Reason: for constipation) Qty: 946 0RF simvastatin 10 mg tablet 10 mg PO BEDTIME Qty: 90 0RF metoprolol succinate 100 mg tablet extended release 24 hr 100 mg PO DAILY 90 Days Qty: 90 0RF travoprost 0.004 % drops 1 drp ophthalmic (eye) BEDTIME acetaminophen 500 mg Tablet 1,000 mg PO TID insulin lispro [Humalog KwikPen Insulin] 100 unit/mL insulin pen 1 sliding scale dose subcut TIDAC Rx Instructions: 0-99 = no insulin 100-150 = 2 units 151 - 200 = 3 units 201 -250 = 4 units 251 - 300 = 5 units 301 - 350 = 7 units 351 - 400 = 8 units 401 - 450 = 10 units 451- 500 = 11 units 501 + = 15 units sennosides-docusate sodium [Senna with Docusate Sodium] 8.6-50 mg Tablet 1 tab-cap PO BID levothyroxine 150 mcg Tablet 150 mcg PO DAILY@0600 PreserVision AREDS-2 250-90-40-1 mg Capsule 1 tab PO DAILY magnesium hydroxide [Milk of Magnesia] 400 mg/5 mL Suspension 30 ml PO DAILY PRN (Reason: Constipation) bisacodyl 10 mg Suppository 10 mg TX DAILY PRN (Reason: Constipation) Fleet Enema 19-7 gram/118 mL Enema 118 ml TX DAILY PRN (Reason: Constipation) insulin glargine U-300 conc [Toujeo SoloStar U-300 Insulin] 300 unit/mL (1.5 mL) insulin pen 10 unit subcut DAILY Qty: 4.5 0RF Rx Instructions: or as directed ipratropium-albuterol 0.5 mg-3 mg(2.5 mg base)/3 mL Solution For Nebulization 3 ml INHALATION Q6H PRN (Reason: Non-Productive Cough) guaifenesin 400 mg Tablet 400 mg PO Q6H PRN (Reason: Cough/Nasal Congestion) Xarelto 15 mg Tablet 15 mg PO DAILY@1700 Qty: 90 0RF lorazepam 0.5 mg tablet 0.25 mg PO BID PRN (Reason: Anxiety) calcitriol 0.25 mcg capsule 0.25 mcg PO Q48H (DME) pen needle, diabetic [BD Eveline 2nd Gen Pen Needle] 32 gauge x 5/32 needle See Rx Instructions .ROUTE .COMPLEX Qty: 400 3RF Dose Instruction: USEN TO INJECT INSULIN FOUR TIMES DAILY Rx Instructions: USEN TO INJECT INSULIN FOUR TIMES DAILY melatonin 5 mg capsule 5 mg PO BEDTIME PRN (Reason: insomnia) Discontinued furosemide 20 mg tablet 20 mg PO BID Rx Instructions: 20 mg orally daily at 2 pm for 5 days only Discharge Orders: Discharge Order (Routine); Ordered 12/05/24 Ordered By: Mauricio Coyle Diet: Low salt diet Activity on Discharge: As tolerated Stand Alone Forms: Patient Portal Discharge page Print Language: Slovak Other Ambulatory Orders: Thyroid Stimulating Hormone (Routine) Timeframe: 1 Month Facility: [facility] - Location: Laboratory Ordered By: Mauricio Coyle Care Plan Goals: cardiac health Health Concerns: CHF exacerbation Pleural effusion Hypoxia Hypothyroidism Plan of Treatment: Furosemide 40 mg every morning and 20 mg every evening. Low-sodium diet: less than 2000 mg of sodium daily. Weigh yourself daily and if your weight goes up by more than 3 lb/day or 5 lb/week, increase the EVENING dose of furosemide to 40 mg as well. Weaned off oxygen. Bacteria in urine represents colonization, not infection. Increase levothyroxine from 150 to 175 mcg/day; recheck TSH in 4 weeks Please follow up with your primary care doctor within 1 week. Return to the hospital if you experience recurrent or worsening symptoms. Assessment: See Discharge Summary.
[2024-12-05 10:55] LABS: Glucose, Whole Blood 285 mg/dL (60-115)
[2024-12-05 11:10] VITALS: BP 168/82; PULSE 79; RESP 20; TEMP 36.5; O2SAT 95
--- NOTE | 2024-12-05 13:33 | P.CNID_ITS ---
History of Present Illness Data of Consult Service Date: 12/05/24 Requesting physician: Mauricio Coyle Primary Care Provider: Allyn Lovelace MD HPI Reason for consult: MSSA urine and jennifer She presents with unwitnessed fall. She has no fever or chills. She isnt giving good history. Review of Systems 2 Review of Systems: Yes Unobtainable due to mental condition PMFSH Past Medical History Medical History (Updated 12/05/24 @ 13:37 by Erinn He MD) Pyuria Pleural effusion Pleural effusion Congestive heart failure Chronic combined systolic and diastolic CHF (congestive heart failure) Hypothyroidism Constipation Transaminitis Congestive heart failure Ulcer of right ankle Recurrent UTI Urinary tract infection with fever Persistent atrial fibrillation Left thigh pain Abdominal mass, LUQ (left upper quadrant) Iliotibial band syndrome of left side UTI (urinary tract infection) Herpes zoster Orthostatic hypotension Acute hyponatremia Weakness COVID-19 Breast asymmetry Atrial fibrillation with rapid ventricular response Hyperkalemia Essential hypertension Atherosclerotic cardiovascular disease Chronic heart failure with preserved ejection fraction (HFpEF) Iliotibial band syndrome of right side Disc degeneration, lumbar Cognitive dysfunction 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 Atrial fibrillation Osteopenia Hypothyroid Spinal stenosis of lumbar region Degenerative disc disease, lumbar Type 2 diabetes mellitus with hyperglycemia Family History Family History Father CVD (cardiovascular disease) Mother CVD (cardiovascular disease) Stroke Family history: reviewed and not pertinent Surgical History Surgical History History of removal of cyst History of appendectomy History of eye surgery History of cataract surgery History of cholecystectomy History of section History of knee replacement History of hip replacement Social History Social History Household Members: Other Household Members Other:: son comes 3 days a week, daughter lives 5 minutes away visits frequently Housing: Assisted Do you presently have visiting nurse or other home services: Yes Alcohol intake: never Comment: 1:1 sitter at bedside Patient Tobacco Use Status: Former Tobacco user Tobacco use type: Cigarette Years Smoked: <1 Smoked in Last 30 Days: No e-Cigarette/Vaping Use: Former Use Second Hand Smoke Exposure: No Use of substances other than those prescribed or required for medical reasons: No Currently Displaying Signs/Symptoms of Drug Intoxication Withdrawal: No Have you been hit, kicked, punched, or otherwise hurt by someone within the past year? If so, by whom?: No Do you feel safe in your current relationship?: No Current Relationship Is there a partner from a previous relationship who is making you feel unsafe now?: No Are you made to feel afraid or neglected: No Advance Directives: Yes Advance Directives on File: Yes Advance Directives Date on File: 08/29/21 Do you have a plan to hurt others: No Plan Recently lost weight without trying: No Nutrition Risks: No Nutritional Risk Patient : No : No Poor oral hygiene: No service: No Current occupational status: retired Cognitive needs: Yes (Walker) Hearing needs: No Vision needs: Yes Meds Allergies Allergy/AdvReac Type Severity Reaction Status Date / Time codeine Allergy Intermediate TACHYCARDIA Verified 11/30/24 09:54 nitrofurantoin (Macrobid) Allergy Unknown confusion Verified 11/30/24 09:54 pravastatin Allergy Unknown Unknown Verified 11/30/24 09:54 rosuvastatin (Crestor) Allergy Unknown Unknown Verified 11/30/24 09:54 Sulfa (Sulfonamide Allergy Unknown unknown Verified 11/30/24 09:54 Antibiotics) sulfamethoxazole (From Allergy Unknown Unknown Verified 11/30/24 09:54 Bactrim) trimethoprim (From Bactrim) Allergy Unknown Unknown Verified 11/30/24 09:54 amlodipine AdvReac Intermediate leg Verified 11/30/24 09:54 swelling digoxin AdvReac Intermediate Confusion Verified 11/30/24 09:54 Active Medications: Current Medications Acetaminophen (Acetaminophen 325 Mg Tablet) 650 mg PO Q6H PRN PRN Reason: Pain, Mild 1-3,fever,headache Last Admin: 12/03/24 16:40 Dose: 650 mg Albuterol/Ipratropium (Albuterol/Iprat 2.5/0.5mg 3 Ml Ampul.Neb) 3 ml INHALE RQ6H PRN PRN Reason: Non-Productive Cough Amiodarone HCl (Amiodarone Hcl 200 Mg Tablet) 200 mg PO DAILY [facility] Last Admin: 12/05/24 08:35 Dose: 200 mg Atorvastatin Calcium (Atorvastatin Calcium 10 Mg Tablet) 10 mg PO DAILY [facility] Last Admin: 12/05/24 08:35 Dose: 10 mg Bisacodyl (Bisacodyl 10 Mg Supp.Rect) 10 mg [place] DAILY PRN PRN Reason: Constipation Calcitriol (Calcitriol 0.25 Mcg Capsule) 0.25 mcg PO Q48H [facility] Last Admin: 12/04/24 15:34 Dose: 0.25 mcg Calcium Carbonate (Calcium Carbonate 750 Mg Tab.Chew) 750 mg PO Q4H PRN PRN Reason: Heartburn Dextrose (Dextrose 50 % 25 Gm/50 Ml Syringe) 25 gm IVPUSH Q15M PRN; Protocol PRN Reason: per Hypoglycemia Standing Ord. Furosemide (Furosemide 20 Mg/2 Ml Vial) 20 mg IVPUSH BID@0900,1800 [facility]; Protocol Last Admin: 12/05/24 08:34 Dose: 20 mg Glucose (Glucose Gel 15 Gm Gel..Gram.) 15 gm PO Q15M PRN; Protocol PRN Reason: per Hypoglycemia Standing Ord. Insulin Glargine (Insulin Glargine,Hum.Rec.Anlog 100 Unit/Ml 10 Ml Vial) 9 unit SUBCUT DAILY [facility] Last Admin: 12/05/24 08:36 Dose: 9 unit Insulin Human Lispro (Insulin Lispro 100 Unit/Ml 3 Ml Vial) 0 unit SUBCUT QIDACHS [facility]; Protocol Last Admin: 12/05/24 12:28 Dose: 6 unit Lactulose (Lactulose 20 Gm/30 Ml Solution) 20 gm PO DAILY PRN PRN Reason: for constipation Latanoprost (Latanoprost 0.005 % Ophth Liseth 2.5 Ml Drops) 1 drop EYE-BOTH BEDTIME [facility] Last Admin: 12/04/24 21:00 Dose: 1 drop Levothyroxine Sodium (Levothyroxine Sodium 175 Mcg Tablet) 175 mcg PO DAILY@0600 [facility] Last Admin: 12/05/24 05:45 Dose: 175 mcg Magnesium Hydroxide (Milk Of Magnesia 30 Ml Oral.Susp) 30 ml PO DAILY PRN PRN Reason: Constipation Melatonin (Melatonin 3 Mg Tablet) 6 mg PO BEDTIME PRN PRN Reason: Insomnia Last Admin: 12/04/24 20:54 Dose: 6 mg Melatonin (Melatonin 3 Mg Tablet) 6 mg PO BEDTIME PRN PRN Reason: Insomnia Metoprolol Succinate (Metoprolol Succinate Er 100 Mg Tab.Er.24h) 100 mg PO DAILY [facility]; Protocol Last Admin: 12/05/24 08:35 Dose: 100 mg Multivitamins/Vitamin C (Multivitamin Tablet) 1 tab PO DAILY [facility] Last Admin: 12/05/24 08:35 Dose: 1 tab Rivaroxaban (Rivaroxaban 15 Mg Tablet) 15 mg PO DAILY@1700 [facility] Last Admin: 12/04/24 17:33 Dose: 15 mg Senna/Docusate Sodium (Sennosides/Docusate Sodium Tablet) 1 tab PO BID [facility] Last Admin: 12/05/24 08:35 Dose: 1 tab Sodium Chloride (0.9 % Sodium Chloride Flush 3 Ml Syringe) 3 ml IVFLUSH QSHIFT [facility] Last Admin: 12/05/24 08:35 Dose: 3 ml Vitamin D (Cholecalciferol (Vitamin D3) 25 Mcg Tablet) 25 mcg PO DAILY [facility] Last Admin: 12/05/24 08:35 Dose: 25 mcg Home Medications ?Medication ?Instructions ?Recorded ?Confirmed ?Last Taken ?Type travoprost 0.004 % eye drops 1 drp ophthalmic (eye) BE DTIME 06/01/20 11/30/24 11/16/23 History acetaminophen 500 mg tablet 1,000 mg PO TID Pain 08/1711/30/24 08/16/21 History cholecalciferol (vitamin D3) 25 25 mcg PO DAILY 11/30/24 04/19/24 History mcg (1,000 unit) capsule insulin lispro 100 unit/mL 1 sliding scale dose subcut TIDAC 11/17/23 11/30/24 04/19/24 History subcutaneous pen (Humalog KwikPen (U-100) Insulin) calcitriol 0.25 mcg capsule 0.25 mcg PO Q48H 04/20/24 11/30/24 04/19/24 History melatonin 5 mg capsule 5 mg PO BEDTIME PRN insomnia 05/05/24 11/30/24 Unknown History bisacodyl 10 mg rectal suppository 10 mg [place] DAILY PRN Constipation 07/12/24 11/30/24 Unknown History levothyroxine 150 mcg tablet 150 mcg PO DAILY@0600 08/3111/30/24 Unknown History magnesium hydroxide 400 mg/5 mL 30 ml PO DAILY PRN Con stipation 07/12/24 11/30/24 Unknown History oral suspension (Milk of Magnesia) sennosides 8.6 mg-docusate sodium 1 tab-cap PO BID 08/3111/30/24 Unknown History 50 mg tablet (Senna with Docusate Sodium) sodium phosphates 19 gram-7 118 ml [place] DAILY PRN Consti pation 07/12/24 11/30/24 Unknown History gram/118 mL enema (Fleet Enema) vit C 250 mg-vit E 90 mg-zinc 40 1 tab PO DAILY 11/30/24 Unknown History mg-copper 1 pa-xdpayy-lngqbl capsule (PreserVision AREDS-2) guaifenesin 400 mg tablet 400 mg PO Q6H PRN Cough/Nasa l 09/22/24 11/30/24 Unknown History Congestion ipratropium 0.5 mg-albuterol 3 mg 3 ml inhalation Q6H PRN 09/22/24 11/30/24 Unknown History (2.5 mg base)/3 mL nebulization Non-Productive Cough soln lorazepam 0.5 mg tablet 0.25 mg PO BID PRN Anxiety 0 11/30/24 11/30/24 Unknown History Physical Exam 2 Vital Signs: Vital Signs: Last Vital Signs Temp 97.7 F 12/05/24 11:10 Pulse 79 12/05/24 11:10 Resp 20 12/05/24 11:10 BP 168/82 H 12/05/24 11:10 Pulse Ox 95 12/05/24 11:10 O2 Del Method Room Air 12/05/24 11:10 O2 Flow Rate 1 12/04/24 03:21 Oxygen Flow Rate 3 11/30/24 09:47 BMI result Body Mass Index 25.8 Const: General: cooperative HEENT: Head: Yes normal to inspection Face and sinus: Yes normal facial exam Mouth: Normal oral and palatal mucosa present Teeth and gingiva: d entition normal Eyes: General: appearance normal, both eyes and all related structures P upils: Equal, round and reactive pupils present Resp: Effort & Inspection: normal respiratory effort Cardio: Rate: regular rate Rhythm: regular rhythm GI: Palpation (GI): Soft to palpation and nontender : General: Yes no CVA tenderness Back/Spine/Pelvis: Back: no CVA tenderness Skin: General skin exam: no rashes or lesions noted Neuro: General: moves all extremities Cranial nerves: Yes Equal, round and reactive pupils present Extrem: General: Yes normal to inspection Psych: Other: confused Results Labs 11/30/24 10:30 12/05/24 06:44 Labs: BMP 12/05/24 06:44 Sodium 139 Potassium 3.7 Chloride 95 L Carbon Dioxide 32 H BUN 22 H Creatinine 1.18 Calcium 9.1 Microbiology Microbiology Results: Microbiology 11/30/24 10:47 Blood - Venous Blood Culture - Final No growth after 5 days. 11/30/24 10:30 Blood - Venous Blood Culture - Final No growth after 5 days. 11/30/24 Unknown Urine Catheterized - Straight Catheter Urine Culture - Final Jennifer glabrata Staphylococcus aureus 11/30/24 Unknown Urine clean catch - Clean Catch Midstream Urine Culture - Final Assessment and Plan (1) Pyuria: Status: Acute Plan This is colonization with yeast and MSSA. No antibiotics at this time.
== END 2024-12-05 14:57 | disposition skilled nursing facility (03) | DRG 291 ==
LOC: HO.ED 13:42 → HO.EDOVER 14:01 → HO.IMC 16:08
PROVIDERS: Hospitalist; Nurse Practitioner Acute Care; Nurse Practitioner Family; Admitting Provider Physician Assistant Medical; Emergency Provider Emergency Medicine; PCP Internal Medicine; Visit Provider Family Medicine
DX: I11.0 Hypertensive heart disease with heart failure (principal); I50.41 Acute combined systolic (congestive) and diastolic (congestive) heart failure; J96.11 Chronic respiratory failure with hypoxia; I48.19 Other persistent atrial fibrillation; I25.10 Atherosclerotic heart disease of native coronary artery without angina pectoris; E03.9 Hypothyroidism, unspecified; J44.9 Chronic obstructive pulmonary disease, unspecified; Z66 Do not resuscitate; R68.0 Hypothermia, not associated with low environmental temperature; E11.9 Type 2 diabetes mellitus without complications; R19.7 Diarrhea, unspecified; E78.5 Hyperlipidemia, unspecified; W19.XXXA Unspecified fall, initial encounter; G47.33 Obstructive sleep apnea (adult) (pediatric); F03.90 Unspecified dementia, unspecified severity, without behavioral disturbance, psychotic disturbance, mood disturbance, and anxiety; K59.09 Other constipation; Z87.891 Personal history of nicotine dependence; Z99.81 Dependence on supplemental oxygen; Z79.4 Long term (current) use of insulin; Z79.01 Long term (current) use of anticoagulants; Z79.890 Hormone replacement therapy; Z79.899 Other long term (current) drug therapy
CPT/HCPCS: 36415; 70450; 71250; 72125; 74176; 80048; 80076; 81001; 81003; 82947; 83605; 83735; 83880; 84439; 84443; 84484; 85025; 85610; 87040; 87086; 87088; 87186; 87507; 93005; 97162; 99285; J0696; J1938; J2359

== ENCOUNTER → 2024-11-30 10:05 | Outpatient (BNV) | payer MEDICARE, SELFPAY | PROVIDERS: Admitting Provider Physician Assistant Medical; Emergency Provider Emergency Medicine; PCP Internal Medicine; Visit Provider Internal Medicine | DX: I48.91 Unspecified atrial fibrillation (principal); I25.2 Old myocardial infarction | CPT/HCPCS: 93010 ==

== ENCOUNTER 2024-11-30 13:58 | Outpatient (BNV) | payer MEDICARE, SELFPAY | END 2024-12-03 07:00 | PROVIDERS: Admitting Provider Physician Assistant Medical; Emergency Provider Emergency Medicine; PCP Internal Medicine; Visit Provider Radiology Diagnostic Radiology | DX: J90 Pleural effusion, not elsewhere classified (principal); J98.11 Atelectasis | CPT/HCPCS: 71250 ==

== ENCOUNTER → 2024-11-30 13:58 | Outpatient (BNV) | payer MEDICARE, SELFPAY | PROVIDERS: Admitting Provider Physician Assistant Medical; Emergency Provider Emergency Medicine; PCP Internal Medicine; Visit Provider Internal Medicine | DX: R82.81 Pyuria (principal) | CPT/HCPCS: 99221 ==

== ENCOUNTER → 2024-11-30 13:58 | Outpatient (BNV) | payer MEDICARE, SELFPAY | PROVIDERS: Admitting Provider Physician Assistant Medical; Emergency Provider Emergency Medicine; PCP Internal Medicine; Visit Provider Nurse Practitioner Acute Care | DX: J90 Pleural effusion, not elsewhere classified (principal) | CPT/HCPCS: 99232 ==

== ENCOUNTER 2025-01-07 13:01 | Outpatient (AMB) | payer MEDICARE, SELFPAY ==
--- OUTSIDE RECORDS SUMMARY | 2019-08-30 11:18 | XMS_ITS | Encounter Summary ---
Author Organization [facility] Address [address] [place] [address] Phone Care Team Providers Care Investment Counselor Name Role Phone Monique White MD Primary Care Provider [phone] Encounter Details Date Type Department Care Team (Late Contact Info) Description 08/30/2019 11:18 AM EDT Hospital Encounter [facility] [address] [place] [address] Nguyen Victoria, MOLD CLOSER HELPER [address] [place] [address] [email or web address] Social History Tobacco Use Types Packs/Day Years Used Date Smoking Tobacco: Former Cigarettes 1 7 1 953 - 7607 Passive Smoke Exposure: Past Smokeless Tobacco: Never [...] AM EST Office Visit [facility] [address] [place] [address] Ann Carrillo MD [address] [place] [phone] [email or web address] 06/18/2025 11:00 AM EDT Office Visit [facility] [address] [place] [address] Ann Carrillo MD [address] [place] [address] 09/15/2025 11:00 AM EDT Office Visit [facility] [address] [place] [address] Felicita Morgan PA-C [address] [place] [phone] documented as of this encounter Procedures Procedure [...] dislocation. 2. Osteopenia and osteoarthritis. POS - [id number] Narrative 08/30/2019 11:32 AM EDT HISTORY: As [...] dislocation. 2. Osteopenia and osteoarthritis. POS - [id number] Nguyen Victoria MOLD CLOSER HELPER IMG XR UPPER EXTREMITY Final Result documented in this encounter Visit Diagnoses Not on filedocumented in this encounter Care Teams Investment Counselor Relationship Specialty Start Date End Date Christopher, Monique Maciel MD [address] [place] [address] Drive [address] [place] [address] PCP - General Internal Medicine 08/30/19 documented as of this encounter Additional Source Comments The information contained in this document represents components of the legal health record. It is not the complete legal health record.[facility]
--- OUTSIDE RECORDS SUMMARY | 2022-09-10 12:20 | XMS_ITS | Encounter Summary ---
Author Organization [facility] Address [address] [facility] [address] [place] [address] Phone Care Team Providers Care Inventory And Pricing Associate Name Role Phone Monique White MD Primary Care Provider [phone] Sohail Penaloza MD Unavailable [phone] Alfred Guevara DPM, Erik Unavailable [phone] Encounter Details Date Type Department Care Team (Late st Contact Info) Description 09/10/2022 12:20 PM EDT Hospital Encounter [facility] [address] [place] [address] Mat Beauchamp PA-C [address] [place] [address] [email or web address] Social History Tobacco [...] AM EST Office Visit [facility] [address] [place] [address] Ann Carrillo MD [address] [place] [address] 06/18/2025 11:00 AM EDT Office Visit [facility] [address] [place] [address] Ann Carrillo MD [address] [place] [address] 09/15/2025 11:00 AM EDT Office Visit [facility] [address] [place] [address] Felicita [place] PA-C [address] [place] [address] documented as of this encounter Procedures Procedure [...] on filedocumented in this encounter Care Teams Inventory And Pricing Associate Relationship Specialty Start Date End Date Monique White MD [address] [place] [address] Drive [address] [place] [address] PCP - General Internal Medicine 08/30/19 Sohail Penaloza MD [address] [place] [address] Nephrology 07/14/22 Arturo Simon DPM [address] [place] [address] Podiatry 07/14/22 documented as of this encounter Additional Source Comments The information contained in this document represents components of the legal health record. It is not the complete legal health record.[facility]
[2025-01-07 13:07] VITALS: BP 118/60; PULSE 63
--- NOTE | 2025-01-07 13:07 | MHC.OFFVIS ---
Vital Signs 01/07/25 13:07 Height 5 ft 4 in BMI Reason not done Patient refused/unable BP 118/60 Blood Pressure Location Lt brachial Position Sitting Pulse 63 Pulse Source Monitor Intake Visit Reasons: 6m follow up Allergies codeine Allergy (Intermediate, Verified 11/30/24 09:54) TACHYCARDIA nitrofurantoin (Macrobid) Allergy (Unknown, Verified 11/30/24 09:54) confusion pravastatin Allergy (Unknown, Verified 11/30/24 09:54) Unknown rosuvastatin (Crestor) Allergy (Unknown, Verified 11/30/24 09:54) Unknown Sulfa (Sulfonamide Antibiotics) Allergy (Unknown, Verified 11/30/24 09:54) unknown sulfamethoxazole (From Bactrim) Allergy (Unknown, Verified 11/30/24 09:54) Unknown trimethoprim (From Bactrim) Allergy (Unknown, Verified 11/30/24 09:54) Unknown amlodipine Adverse Reaction (Intermediate, Verified 11/30/24 09:54) leg swelling digoxin Adverse Reaction (Intermediate, Verified 11/30/24 09:54) Confusion Medication List - Last Reconciled 01/07/25 by Gene Morrow MD acetaminophen 1,000 mg PO TID amiodarone 100 mg PO DAILY bisacodyl 10 mg [place] DAILY PRN calcitriol 0.25 mcg PO Q48H cholecalciferol (vitamin D3) 25 mcg PO DAILY flash glucose sensor (FreeStyle Madeline 14 Day Sensor kit) Dx: E11.65 As directed, 14 days flash glucose sensor (FreeStyle Madeline 14 Day Sensor kit) As directed furosemide (Lasix) 40 mg PO QAM furosemide (Lasix) 20 mg PO QPM guaifenesin 400 mg PO Q6H PRN insulin glargine U-300 conc (Toujeo SoloStar U-300 Insulin) 10 units (0.0333 mL) subcut DAILY insulin lispro (Humalog KwikPen (U-100) Insulin) 1 sliding scale dose subcut TIDAC ipratropium-albuterol 0.5 mg-3 mg(2.5 mg base)/3 mL 3 mL inhalation Q6H PRN lactulose 30 mL PO DAILY PRN levothyroxine 175 mcg PO DAILY@0600 magnesium hydroxide (Milk of Magnesia) 30 mL PO DAILY PRN melatonin 5 mg PO BEDTIME PRN metoprolol succinate ER 100 mg PO DAILY 90 days pen needle, diabetic (BD Eveline 2nd Gen Pen Needle) USEN TO INJECT INSULIN FOUR TIMES DAILY rivaroxaban (Xarelto) 15 mg PO DAILY@1700 sennosides-docusate sodium 8.6-50 mg (Senna with Docusate Sodium) 1 tab-cap PO BID simvastatin 10 mg PO BEDTIME sodium phosphates 19-7 gram/118 mL (Fleet Enema) 118 mL [place] DAILY PRN travoprost 0.004% 1 drp ophthalmic (eye) BEDTIME vit C,I-If-vertn-lutein-zeaxan 250-90-40-1 mg (PreserVision AREDS-2) 1 tab PO DAILY HPI Comments Details: Gerri returns for follow-up regarding atrial fibrillation and diastolic congestive heart failure. She has been cardioverted around 4 times or so in the last few years. She was doing okay on Amiodarone but still went back into atrial fibrillation. We tried just rate control with digoxin but she had side effects from that and then went back on amiodarone for rather rate control. Few months back, she had a hip fracture and since then, she has been in a long-term care. She does get a lot of help it seems. She is quite confused and she cannot tell me where she is. In the past, she was reasonably oriented but this is much worse. Otherwise, she has had one further hospitalization for generalized deterioration and pleural effusion extra. Per notes, treated for bacteriuria, hypothermia, hypothyroidism and discharged back to long-term care. She has not complained much of any specific cardiac symptoms but overall declining and more so mentally. [facility] Medical History (Updated 12/13/24 @ 00:01 by Background Noel) Pyuria Pleural effusion Pleural effusion Congestive heart failure Chronic combined systolic and diastolic CHF (congestive heart failure) Hypothyroidism Constipation Transaminitis Congestive heart failure Ulcer of right ankle Recurrent UTI Urinary tract infection with fever Persistent atrial fibrillation Left thigh pain Abdominal mass, LUQ (left upper quadrant) Iliotibial band syndrome of left side UTI (urinary tract infection) Herpes zoster Orthostatic hypotension Acute hyponatremia Weakness COVID-19 Breast asymmetry Atrial fibrillation with rapid ventricular response Hyperkalemia Essential hypertension Atherosclerotic cardiovascular disease Chronic heart failure with preserved ejection fraction (HFpEF) Iliotibial band syndrome of right side Disc degeneration, lumbar Cognitive dysfunction 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 Atrial fibrillation Osteopenia Hypothyroid Spinal stenosis of lumbar region Degenerative disc disease, lumbar Type 2 diabetes mellitus with hyperglycemia Surgical History (Updated 12/13/24 @ 00:01 by Sarah Cohen) History of removal of cyst History of appendectomy History of eye surgery History of cataract surgery History of cholecystectomy History of section History of knee replacement History of hip replacement Family History Father CVD (cardiovascular disease) Mother CVD (cardiovascular disease) Stroke Social History Household Members: Other Household Members Other:: son comes 3 days a week, daughter lives 5 minutes away visits frequently Housing: [facility] Do you presently have visiting nurse or other home services: Yes Alcohol intake: never Comment: 1:1 sitter at bedside Patient Tobacco Use Status: Former Tobacco user Tobacco use type: Cigarette Years Smoked: <1 e-Cigarette/Vaping Use: Former Use Second Hand Smoke Exposure: No Advance Directives Date on File: 08/29/21 service: No Current occupational status: retired Cognitive needs: Yes (Walker) Hearing needs: No Vision needs: Yes Review of Systems Const Denies weakness ENT Denies dizziness Card Denies chest pain, Denies chest pain with activity, Denies syncope, Denies rapid heart rate, Denies pedal edema, Denies edema, Denies leg edema, Denies lightheadedness, Denies palpitations, Denies dyspnea, Denies dyspnea on exertion and Denies orthopnea Resp Denies cough, Denies dyspnea and Denies dyspnea on exertion GI Denies hematochezia and Denies change in stool character Musc Denies abnormal gait, Denies muscle cramps, Denies muscle weakness, Denies numbness, Denies radiating pain into limb and Denies tingling Neuro Denies abnormal gait, Denies dizziness, Denies syncope, Denies numbness, Denies tingling and Denies weakness Endo Denies palpitations Physical Exam Vital Signs: Last Vital Signs Pulse 63 01/07/25 13:07 BP 118/60 01/07/25 13:07 Const General: comfortable and no acute distress Orientation/consciousness: patient oriented x3 HEENT Other: Unremarkable Head: Yes normal to inspection Neck Neck: Yes normal visual inspection Chest Chest palpation & inspection: normal inspection of the chest Resp Auscultation: crackles Cardio Palpation: normal PMI Heart sounds: S1 normal heart sound present, S2 normal heart sound present, no gallops, no murmurs and no rubs GI Palpation (GI): Soft to palpation Back/Spine/Pelvis Other: unremarkable Skin General skin exam: no rashes or lesions noted Neuro General: patient oriented x3 Extrem General: Yes normal to inspection Psych Mental Status: mental status grossly normal Office Procedures EKG Details: EKG with atrial fibrillation at 63/Min; cannot exclude old anterior infarct; nonspecific QRS widening, right superior axis; corrected QT is 480 milliseconds. [id number], Complete Assessment & Plan Assessment & Plan (1) Chronic combined systolic and diastolic CHF (congestive heart failure): Code(s): I50.42 - Chronic combined systolic (congestive) and diastolic (congestive) heart failure Category: Medical Plan: In the most recent echocardiogram, LVEF 51%. Prior to that, 38%. Wall motion abnormalities related to underlying coronary disease. On diuretics and beta-blockers. Other meds like Entresto not being used mainly because of age and deteriorating mental status. Has also had hyperkalemia issues in the past. (2) Atherosclerotic cardiovascular disease: Code(s): I25.10 - Atherosclerotic heart disease of [place] coronary artery without angina pectoris Category: Medical Plan: Cardiac catheterization-2016 LAD-mid LAD 50%; mild to moderate disease beyond the mid segment; circumflex-2nd marginal-midsection 85%; RCA-moderate diffuse disease. Clinically, no overt angina. (3) Persistent atrial fibrillation: Code(s): I48.19 - Other persistent atrial fibrillation Category: Medical Plan: Has been cardioverted several times in the past and still back in atrial fibrillation and also in spite of amiodarone. She could not tolerate other medications like digoxin. Remains on beta-blockers. She still remains on amiodarone but more so for rate control. As there was some issue with thyroid function, cut back on the amiodarone dose to 100 mg daily. Continue anticoagulation. (4) Essential hypertension: Code(s): I10 - Essential (primary) hypertension Category: Medical Plan: Numerous med changes over time. But it seems that reasonable leads been quite stable. No changes made today. (5) Hyperkalemia: Code(s): E87.5 - Hyperkalemia Category: Medical Plan: Off spironolactone in the past. No recent issues. Plan Discussed with daughter who came for appointment. Coding Level of Care Code Est Pt Level 4 (02154) Complex EM visit Add On G2211 Diagnoses Chronic combined systolic and diastolic CHF (congestive heart failure) I50.42 Atherosclerotic cardiovascular disease I25.10 Persistent atrial fibrillation I48.19 Essential hypertension I10 Hyperkalemia E87.5 CPT Codes EKG - CPT: 15973-[id number], Complete ([id number])
--- OUTSIDE RECORDS SUMMARY | 2025-01-07 14:19 | XMS_ITS | Encounter Summary ---
Author Organization [facility] Address [address] [place] [address] Care Team Providers Care Quality Compliance Coordinator Name Role Phone Torrey Kwok MD Primary Care Provider [phone] Encounter Details Date Type Department Care Team (Late st Contact Info) Description 05/01/2024 Lab Requisition [facility] - Main Lab [address] [facility] [address] [employer] [place] [address] Torrey Kwok MD [address] [place], [place] [id number] Type 2 diabetes mellitus without complications (CMS/HCC [...] LAB CHEMISTRY METHOD 05/01/2024 9:17 AM EST [facility] Potassium 4.0 3.5 - 5.5 mmol/L LAB CHEMISTRY METHOD 05/01/2024 9:17 AM EST [facility] Chloride 97 96 - 110 mmol/L LAB CHEMISTRY METHOD 05/01/2024 9:17 AM [facility] CO2 29 21 - 32 mmol/L LAB CHEMISTRY METHOD 05/01/2024 9:17 AM [facility] Anion Gap 8 3 - 11 LAB CHEMISTRY METHOD 05/01/2024 9:17 AM [facility] Glucose 262(H) 70 - 100 mg/dL LAB CHEMISTRY METHOD 05/01/2024 9:17 AM [facility] BUN 45(H) 5 - 25 mg/dL LAB CHEMISTRY METHOD 05/01/2024 9:17 AM [facility] Creatinine 1.66(H) 0.50 - 1.10 mg/dL LAB CHEMISTRY METHOD 05/01/2024 9:17 AM [facility] eGFR 30(L) >=60 mL/min/1. 73m2 LAB CHEMISTRY METHOD 05/01/2024 9:17 AM [facility] Comment:Calculation based on the Chronic Kidney Disease Epidemiology Collaboration (CKD-EPI) equation refit without adjustment for race. BUN/Creatinine Ratio 27.1 LAB CHEMISTRY METHOD 05/01/2024 9:17 AM [facility] Calcium 7.6(L) 8.5 - 10.5 mg/dL LAB CHEMISTRY METHOD 05/01/2024 9:17 AM [facility] Blood Venous blood specimen / Unknown Venipuncture / Unknown 05/01/2024 7:06 AM EST 05/01/2024 8:25 AM EST us Torrey Kwok MD LAB BLOOD ORDERABLES Final Resul t [facility] [address] [place] [address], documented in this encounter Visit Diagnoses Diagnosis Type 2 diabetes mellitus without complications (CMS/HCC V24, CMS/HCC V28) documented in this encounter Additional Health Concerns Infection Onset Date Last Indicated Resolved Time Respiratory Rule-Out 07/12/2024 07/11/2024 025 11:25 AM EDT documented as of this encounter Care Teams Quality Compliance Coordinator Relationship Specialty Start Date End Date Torrey Kwok MD [address] [place] [address] [address] [place] [address] PCP - General Geriatric Medicine 04/25/24 documented as of this encounter
--- OUTSIDE RECORDS SUMMARY | 2025-01-07 14:19 | XMS_ITS | Encounter Summary ---
Author Organization [facility] Address [address] [place] [address] Phone Care Team Providers Care Social Organization Professor Name Role Phone Monique White MD Primary Care Provider [phone] Encounter Details Date Type Department Care Team (Late st Contact Info) Description 06/07/2021 Telephone [facility] [address] [place] [address] Sohail Penaloza MD Social History [...] with you. Please call her back at [phone] Thank you documented in this encounter Plan of Treatment Not on file documented as of this encounter Visit Diagnoses Not on filedocumented in this encounter Care Teams Social Organization Professor Relationship Specialty Start Date End Date Monique White MD [facility] [address] [place] PCP - General Internal Medicine 03/11/21 documented as of this encounter
--- OUTSIDE RECORDS SUMMARY | 2025-01-07 14:19 | XMS_ITS | Encounter Summary ---
Author Organization [facility] Address [address] [place] [phone] Care Team Providers Care Film Numberer Name Role Phone Torrey Kwok MD Primary Care Provider [phone] Encounter Details Date Type Department Care Team (Late st Contact Info) Description 11/28/2024 Lab Requisition [facility] - Main Lab [address] [facility] [place] [address] Torrey Kwok MD [address] [place], [place] [id number] Type 2 diabetes mellitus with diabetic chronic [...] V28) documented in this encounter Care Teams Film Numberer Relationship Specialty Start Date End Date Torrey Kwok MD [address] [place] [address] PCP - General Geriatric Medicine 04/25/24 documented as of this encounter
--- OUTSIDE RECORDS SUMMARY | 2025-01-07 14:19 | XMS_ITS | Encounter Summary ---
Author Organization [facility] Address [address] [place] [phone] Care Team Providers Care Chief Of Surgery Name Role Phone Torrey Kwok MD Primary Care Provider [phone] Encounter Details Date Type Department Care Team (Late st Contact Info) Description 09/17/2024 Lab Requisition [facility] - Main Lab [address] [facility] [place] [address] Torrey Kwok MD [address] [place], [place] [phone] Hyperglycemia, unspecified; Altered mental status, unspecified Social History Tobacco Use Types Packs/Day Years [...] URINALYSIS WITH REFLEX MICROSCOPIC AND CULTURE Routine 09/16/2024 3:38 PM EDT Hyperglycemia, unspecified Altered mental status, unspecified FROST URINE CULTURE TUBE Routine 09/16/2024 3:38 PM EDT Hyperglycemia, unspecified Altered mental status, unspecified URINALYSIS WITH REFLEX MICROSCOPIC AND CULTURE Routine 09/16/2024 3:38 PM EDT Hyperglycemia, unspecified Altered mental status, unspecified CULTURE URINE Routine 09/16/2024 3:38 PM EDT Hyperglycemia, unspecified Altered mental status, unspecified documented in this encounter Results * (ABNORMAL) Culture urine (09/16/2024 3:38 PM EDT) Pathologist [facility] Culture, Urine >100,000 CFU/mL Methicillin-Sensi tive Staphylococcus aureus(A) ANDRE 09/19/2024 10:55 AM EDT [facility] Comment: Edited result: Previously reported as Gram Positive Cocci on 09/18/2024 at 0843 EDT. Urine Urine specimen obtained by clean catch procedure / Unknown Non-blood Collection / Unknown 09/16/2024 3:38 PM EDT 09/17/2024 10:53 AM EDT Narrative Organism Antibiotic Method Susceptibility Methicillin-Sensitive Staphylococcus aureus Benzylpenicillin ANDRE >=0.5 ug/ml: Resistant Methicillin-Sensitive Staphylococcus aureus Oxacillin ANDRE 0.5 ug/ml: Susceptible Methicillin-Sensitive Staphylococcus aureus Gentamicin ANDRE <=0.5 ug/ml: Susceptible Methicillin-Sensitive Staphylococcus aureus Ciprofloxacin ANDRE >=8 ug/ml: Resistant Methicillin-Sensitive Staphylococcus aureus Levofloxacin ANDRE 4 ug/ml: Resistant Methicillin-Sensitive Staphylococcus aureus Moxifloxacin ANDRE 2 ug/ml: Resistant Methicillin-Sensitive Staphylococcus aureus Quinupristin/Dalfopristin ANDRE 0.5 ug/ml: Susceptible Methicillin-Sensitive Staphylococcus aureus Linezolid ANDRE 2 ug/ml: Susceptible Methicillin-Sensitive Staphylococcus aureus Vancomycin ANDRE 1 ug/ml: Susceptible Methicillin-Sensitive Staphylococcus aureus Tetracycline ANDRE >=16 ug/ml: Resistant Methicillin-Sensitive Staphylococcus aureus Nitrofurantoin ANDRE <=16 ug/ml: Susceptible Methicillin-Sensitive Staphylococcus aureus Rifampin ANDRE <=0.5 ug/ml: Susceptible Methicillin-Sensitive Staphylococcus aureus Trimethoprim/Sulfamethoxazo le ANDRE <=10 ug/ml: Susceptible us Torrey Kwok MD LAB MICROBIOLOGY - GENERAL ORDER GENET Final Result [facility] [address] [place] [address], * (ABNORMAL) Urinalysis with reflex microscopic and culture (09/16/2024 3:38 PM EDT) Pathologist [facility] Specific [place] Urine 1.023 1.003 - 1.030 LAB URINALYSIS - AUTOMATED METHOD 09/17/2024 10:53 AM [facility] pH, Urine 6.0 5.0 - 8.0 pH LAB URINALYSIS - AUTOMATED METHOD 09/17/2024 10:53 AM [facility] Leukocytes, Urine Small(A) Negative LAB URINALYSIS - AUTOMATED METHOD 09/17/2024 10:53 AM [facility] Nitrite, Urine Negative Negative LAB URINALYSIS - AUTOMATED METHOD 09/17/2024 10:53 AM [facility] Protein, Urine 30(A) <=Trace mg/dL LAB URINALYSIS - AUTOMATED METHOD 09/17/2024 10:53 AM [facility] Glucose, Urine >=1000(A) Negative mg/dL LAB URINALYSIS - AUTOMATED METHOD 09/17/2024 10:53 AM [facility] Ketones, Urine Trace(A) Negative mg/dL LAB URINALYSIS - AUTOMATED METHOD 09/17/2024 10:53 AM [facility] Urobilinogen , Urine 0.2 0.2 - 1.0 mg/dL LAB URINALYSIS - AUTOMATED METHOD 09/17/2024 10:53 AM [facility] Bilirubin, Urine Negative Negative LAB URINALYSIS - AUTOMATED METHOD 09/17/2024 10:53 AM [facility] Blood, Urine Negative Negative LAB URINALYSIS - AUTOMATED METHOD 09/17/2024 10:53 AM [facility] RBC, Urine 6.6(H) 0 - 4 /HPF LAB URINALYSIS - AUTOMATED METHOD 09/17/2024 10:53 AM [facility] WBC, Urine 25.4(H) 0 - 4 /HPF LAB URINALYSIS - AUTOMATED METHOD 09/17/2024 10:53 AM [facility] Squamous Epithelial, Urine 10 0 - 60 /LPF LAB URINALYSIS - AUTOMATED METHOD 09/17/2024 10:53 AM EDT [facility] Bacteria, Urine Negative Negative /HPF LAB URINALYSIS - AUTOMATED METHOD 09/17/2024 10:53 AM EDT [facility] Hyaline Casts, Urine 0.8 0 - 3 /LPF LAB URINALYSIS - AUTOMATED METHOD 09/17/2024 10:53 AM EDT [facility] Urine Urine specimen obtained by clean catch procedure / Unknown Non-blood Collection / Unknown 09/16/2024 3:38 PM EDT 09/17/2024 9:01 AM EDT Torrey Kwok MD LAB URINE ORDERABLES Final Resul t Performing Organization Address City/[facility]/ZIP Co de Phone Number [facility] [address] [place] [address], [place] [phone] * Frost urine culture tube (09/16/2024 3:38 PM EDT) Extra Tube Hold for add-ons. 09/17/2024 11:01 AM EDT [facility] Comment:Auto resulted. Urine Urine specimen obtained by clean catch procedure / Unknown Non-blood Collection / Unknown 09/16/2024 3:38 PM EDT 09/17/2024 9:01 AM EDT Torrey Kwok MD LAB URINE ORDERABLES Final Resul t [facility] [address] [place] [address], [place] [phone] documented in this encounter Visit Diagnoses Diagnosis Hyperglycemia, unspecified Altered mental status, unspecified documented in this encounter Care Teams Chief Of Surgery Relationship Specialty Start Date End Date Torrey Kwok MD [address] [place] [address] [address] [place] [address] PCP - General Geriatric Medicine 04/25/24 documented as of this encounter
--- OUTSIDE RECORDS SUMMARY | 2025-01-07 14:19 | XMS_ITS | Encounter Summary ---
Author Organization [facility] Address [address] [place] [phone] Care Team Providers Care Geometrician Name Role Phone Torrey Kwok MD Primary Care Provider [phone] Encounter Details Date Type Department Care Team (Late st Contact Info) Description 12/05/2024 Lab Requisition [facility] - Main Lab [address] [facility] [place] [address] Torrey Kwok MD [address] [place], [place] [phone] Type 2 diabetes mellitus with diabetic chronic [...] Associated Diagnosis Comments COMPLETE BLOOD COUNT Routine 12/09/2024 5:54 AM EDT 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, CMS/HCC V28) Essential (primary) hypertension Heart failure, unspecified (CMS/HCC V24, CMS/HCC V28) 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 V24, CMS/HCC V28) BASIC METABOLIC PANEL Routine 12/09/2024 5:54 AM EDT Type 2 diabetes mellitus with diabetic chronic kidney disease ([facility] V24, [facility] V28) Essential (primary) hypertension Heart failure, unspecified ([facility] V24, [facility] V28) 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 ([facility] V24, [facility] V28) documented in this encounter Results * (ABNORMAL) Complete blood count (12/09/2024 5:54 AM EDT) [facility] WBC 6.2 4.8 - 10.8 K/mcL LAB HEMETOLOGY METHOD 12/09/2024 1:26 PM [facility] RBC 3.60(L) 3.80 - 4.80 M/mcL LAB HEMETOLOGY METHOD 12/09/2024 1:26 PM [facility] Hemoglobin 11.0(L) 11.5 - 16.0 g/dL LAB HEMETOLOGY METHOD 12/09/2024 1:26 PM [facility] Hematocrit 35.0 35.0 - 47.0 % LAB HEMETOLOGY METHOD 12/09/2024 1:26 PM [facility] MCV 98.6(H) 79.0 - 98.0 FL LAB HEMETOLOGY METHOD 12/09/2024 1:26 PM [facility] MCH 31.0 27.0 - 32.0 pcg LAB HEMETOLOGY METHOD 12/09/2024 1:26 PM [facility] MCHC 31.4(L) 32.0 - 37.0 g/dL LAB HEMETOLOGY METHOD 12/09/2024 1:26 PM [facility] RDW 15.5(H) 11.0 - 15.0 % LAB HEMETOLOGY METHOD 12/09/2024 1:26 PM [facility] Platelets 274 130 - 400 K/mcL LAB HEMETOLOGY METHOD 12/09/2024 1:26 PM EDT [facility] MPV 11.0 7.0 - 11.0 FL LAB HEMETOLOGY METHOD 12/09/2024 1:26 PM EDT [facility] NRBC 0.0 <1.0 % LAB HEMETOLOGY METHOD 12/09/2024 1:26 PM EDT [facility] NRBC Absolute 0.00 <0.10 K/mcL LAB HEMETOLOGY METHOD 12/09/2024 1:26 PM EDT [facility] Blood Venous blood specimen / Unknown Venipuncture / Unknown 12/09/2024 5:54 AM EDT 12/09/2024 12:29 PM EDT us Torrey Kwok MD LAB BLOOD ORDERABLES Final Resul t [facility] [address] [place] [address], * (ABNORMAL) Basic metabolic panel (12/09/2024 5:54 AM EDT) Sodium 135 133 - 145 mmol/L LAB CHEMISTRY METHOD 12/09/2024 6:26 PM [facility] Potassium 3.7 3.5 - 5.5 mmol/L LAB CHEMISTRY METHOD 12/09/2024 6:26 PM [facility] Chloride 97 96 - 110 mmol/L LAB CHEMISTRY METHOD 12/09/2024 6:26 PM [facility] CO2 30 21 - 32 mmol/L LAB CHEMISTRY METHOD 12/09/2024 6:26 PM [facility] Anion Gap 8 3 - 11 LAB CHEMISTRY METHOD 12/09/2024 6:26 PM [facility] Glucose 233(H) 70 - 100 mg/dL LAB CHEMISTRY METHOD 12/09/2024 6:26 PM EDT [facility] BUN 31(H) 5 - 25 mg/dL LAB CHEMISTRY METHOD 12/09/2024 6:26 PM EDT [facility] Creatinine 1.23(H) 0.50 - 1.10 mg/dL LAB CHEMISTRY METHOD 12/09/2024 6:26 PM EDT [facility] eGFR 42(L) >=60 mL/min/1. 73m2 LAB CHEMISTRY METHOD 12/09/2024 6:26 PM EDT [facility] Comment:Calculation based on the Chronic Kidney Disease Epidemiology Collaboration (CKD-EPI) equation refit without adjustment for race. BUN/Creatinine Ratio 25.2 LAB CHEMISTRY METHOD 12/09/2024 6:26 PM EDT [facility] Calcium 8.6 8.5 - 10.5 mg/dL LAB CHEMISTRY METHOD 12/09/2024 6:26 PM EDT [facility] Blood Venous blood specimen / Unknown Venipuncture / Unknown 12/09/2024 5:54 AM EDT 12/09/2024 12:30 PM EDT Torrey Kwok MD LAB BLOOD ORDERABLES Final Resul t [facility] [address] [place] [address], documented in this encounter Visit Diagnoses Diagnosis 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, CMS/HCC V28) Essential (primary) hypertension Unspecified essential hypertension Heart failure, unspecified (CMS/HCC V24, CMS/HCC V28) Heart failure, unspecified 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
--- OUTSIDE RECORDS SUMMARY | 2025-01-07 14:19 | XMS_ITS | Encounter Summary ---
Author Organization [facility] Address [address] [place] [phone] Care Team Providers Care Packaging Line Attendant Name Role Phone Torrey Kwok MD Primary Care Provider [phone] Encounter Details Date Type Department Care Team (Late st Contact Info) Description 09/17/2024 Lab Requisition [facility] - Main Lab [address] [facility] [place] [address] Torrey Kwok MD [address] [place], [place] [phone] Type 2 diabetes mellitus without complications (CMS/HCC V24, CMS/[facility] V28) Social History Tobacco Use [...] 2 diabetes mellitus without complications (CMS/HCC V24, CMS/[facility] V28) documented in this encounter Results * (ABNORMAL) Hemoglobin A1c (09/17/2024 5:53 AM EDT) Hemoglobin A1C 9.8(H) <6.5 % LAB CHEMISTRY METHOD 09/17/2024 12:18 PM T [facility] Mean Bld Glu Estim. 235 mg/dL LAB CHEMISTRY METHOD 09/17/2024 12:18 PM T [facility] Blood Venous blood specimen / Unknown Venipuncture / Unknown 09/17/2024 5:53 AM EDT 09/17/2024 8:55 AM EDT Torrey Kwok MD LAB BLOOD ORDERABLES Final Resul t [facility] [address] [place] [address], documented in this encounter Visit Diagnoses Diagnosis Type 2 diabetes mellitus without complications (CMS/HCC V24, CMS/HCC V28) documented in this encounter Care Teams Packaging Line Attendant Relationship Specialty Start Date End Date Torrey Kwok MD [address] [place] [address] [address] [place] [address] PCP - General Geriatric Medicine 04/25/24 documented as of this encounter
--- OUTSIDE RECORDS SUMMARY | 2025-01-07 14:19 | XMS_ITS | Clinical Summary ---
Author Organization [facility] Address [address] [place] [phone] Phone Care Team Providers Care Dairy Science Teacher Name Role Phone Monique White MD Primary Care Provider [phone] Sohail Penaloza MD Unavailable [phone] Alfred Guevara DPM, Erik Unavailable [phone] Allergies Active Allergy Reactions Criticality Noted Date Comments Codeine 08/30/2019 Nitrofurantoin 06/01/2021 Pravastatin 06/01/2021 Rosuvastatin 06/01/2021 Sulfa (Sulfonamide Antibiotics) 09/07 Trimethoprim 06/01/2021 Medications metoprolol succinate (TOPROL-XL) 100 MG 24 hr tablet Take 100 mg by mouth every morning. Active furosemide (LASIX) 20 MG tablet Take 40 mg by mouth daily. Active simvastatin (ZOCOR) 10 MG tablet Take 10 mg by mouth nightly at bedtime. Active acetaminophen (TYLENOL) 500 mg capsule Take 1,000 mg by mouth. 3 times a day Active lactulose bulk (CONSTULOSE) 10 gram/15 mL solution TAKE 15 TO 30 ML BY MOUTH DAILY NEEDED FOR CONSTIPATION 021 Active rivaroxaban (XARELTO) 15 mg Tab Take 15 mg by mouth daily with dinner. Active travoprost (TRAVATAN Z) 0.004 % Drop Place 1 drop into each eye nightly at bedtime. Active vitamins A,C,T-ptgb-vasdqt (PRESERVISION AREDS) 4,296 mcg-226 mg-90 mg Cap Take 1 capsule by mouth 2 (two) times a day with meals. Active cholecalciferol (VITAMIN D3) 2,000 unit capsule Take 1 capsule by mouth. 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 Patient to pay out of pocket do not run through insurance 1 each 1 Active levothyroxine (SYNTHROID, LEVOTHROID) 125 MCG tabletIndications :Acquired hypothyroidism Take 1 tablet (125 mcg total) by mouth every morning. 90 tablet 1 Active Additional Information Patient taking differently: 175 mcgOral Every morning, Reported on 12/16/2024 insulin pen needles, disposable, 31 gauge x 08/22 NdleIndications:D M type 1 with diabetic peripheral neuropathy 1 each by Miscellaneous route 5 (five) times a day. 500 each 3 024 Active metoprolol succinate (TOPROL-XL) 25 MG 24 hr tablet Take 25 mg by mouth nightly at bedtime. Active amiodarone (PACERONE) 200 MG tablet 024 Active calcitriol (ROCALTROL) 0.25 MCG capsule Take 0.25 mcg by mouth daily. Active HUMALOG KWIKPEN INSULIN 100 unit/mL kwikpenIndication s:3-4 times a day as needed Up to 8 units, subcutaneously, tid AC Indications: 3-4 times a day as needed 30 mL 3 024 Active senna-docusate (PERICOLACE) 8.6-50 mg Take 1 tablet by mouth 2 (two) times a day. prn Active gabapentin (NEURONTIN) 300 MG capsule Take 300 mg by mouth 2 (two) times a day. Active melatonin [address] 5 mg under the tongue nightly at bedtime as needed. Active traZODone (DESYREL) 50 MG tablet Take 12.5 mg by mouth daily as needed (for anxiety). Active TOUJEO SOLOSTAR U-300 INSULIN 300 unit/mL (1.5 mL) subcutaneous injection penIndications:Ty pe 1 diabetes mellitus with peripheral neuropathy Inject 12 Units under the skin every morning. 4.5 mL 3 025 Active diclofenac sodium (VOLTAREN) 1 % Gel Apply topically 2 (two) times a day. 2024 Discontinued omeprazole (PRILOSEC) 20 MG capsule Take 20 mg by mouth daily. 2024 Discontinued FREESTYLE MADELINE 14 DAY READER 1 each by Miscellaneous route as needed. Use as instructed 2024 Discontinued DEXCOM G7 SENSOR DeviIndications:T ype 1 diabetes mellitus with peripheral neuropathy To monitor blood glucose, to change the sensor every 10 days 3 each 11 025 2024 Discontinued FREESTYLE MADELINE 14 DAY SENSOR kitIndications:Ty pe 1 diabetes mellitus with peripheral neuropathy 1 each by Miscellaneous route every 14 (fourteen) days. 2 each 025 2024 Discontinued Active Problems Problem Noted Date Diagnosed Date Acute cough 09/10/2022 Hypothyroidism 07/14/2022 Assessment & Plan (12/16/2024 12:30 PM EDT): Her TSH was elevated on blood work done in the hospital and her levothyroxine dosing was adjusted to taking 175 mcg daily. Wrote on the senior living paperwork to have her TSH checked on 01/26 to see if further dosing adjustment is needed Assessment & Plan (02/14/2024 5:10 PM EST): Euthyroid on labs June 2023. Would continue to monitor. Assessment & Plan (08/14/2023 3:50 PM EDT): Euthyroid on labs November 2022. Will call for more recent labs. Assessment & Plan (05/02/2023 11:14 AM EST): She is consistent with taking her levothyroxine every day. Had blood work done with PCP will request to determine if any medication adjustments are needed Assessment & Plan (01/18/2023 10:58 AM EDT): Euthyroid on labs in October. Assessment & Plan (10/25/2022 3:25 PM EDT): Will check levels to determine if medication adjustments are needed Assessment & Plan (07/14/2022 10:27 AM EDT): Reports good consistency taking rx appropriately. Will check levels today & adjust as appropriate. Frequent urinary tract infections 07/14/2022 Assessment & Plan (07/14/2022 10:31 AM EDT): Recurrent UTIs. Daughter requested urine be tested. Will forward to Dr. White to address if any significant findings. Type 1 diabetes mellitus wit h diabetic chronic kidney disease 07/14/2022 Overview (07/14/2022): CKD. Dr. Penaloza Assessment & Plan (02/14/2024 5:08 PM EST): Following w/ renal. BP controlled. Assessment & Plan (08/14/2023 3:52 PM EDT): Following w/ renal. BP controlled. Assessment & Plan (01/18/2023 11:01 AM EDT): Following w/ renal, stable. BP controlled. Assessment & Plan (07/14/2022 10:30 AM EDT): BP under good control. Following w/ renal, Dr. Penaloza. Acquired hammer toe of left foot 10/03/2021 01/18/2023 Osteoporosis 06/01/2021 Proliferative diabetic retinopathy(362.02) 06/01 Primary osteoarthritis involving multiple joints 01/12/2021 Assessment & Plan (01/17/2021 10:28 AM EDT): Joint protection, energy conservation. Gentle, regular exercise routine as educated by PT (per her report last PT at [facility] in July-August 2020). I have encouraged [...] if necessary at bedtime x 3 weeks. NSAID long-term use 01/12/2021 Assessment & Plan (01/17/2021 10:32 AM EDT): Take the lowest dose, with least frequency, for shortest time. Remember to take it always with food. Favor topical over oral preparations. Other insomnia 01/12/2021 Assessment & Plan (01/17/2021 10:30 AM EDT): Sleep hygiene. Listen to relaxation tapes prior to bed rest at least 6-8 weeks in a row. Consider using a few drops of essential oil of lavender or chammomile at the end of shower or bath prior to bed rest. Regular meditation, positive imagery. Consider melatonin 3-5 mg nightly or formal sleep study if unable to improve with above measures Type 1 diabetes mellitus with retinopathy 2020 Overview (01/18/2023): Dx age 40. Ophtho - [facility]. 14 day madeline via [facility] Assessment & Plan (02/14/2024 5:08 PM EST): Up to date w/ ophtho. Assessment & Plan (08/14/2023 3:49 PM EDT): Up to date w/ ophtho. Assessment & Plan (01/18/2023 11:00 AM EDT): Up to date w/ ophtho. Assessment & Plan (10/25/2022 3:33 PM EDT): Control is suboptimal based upon the patient's freestyle madeline 14 day sensor download. No frequent or severe hypoglycemia. With her glucose levels running high, will have her daughter try increasing the toujeo to 13 units from 12 units to see if this helps lower her overall readings. Discussed changing the sensors to have an alarm but due to not being able to use multiple devices with the madeline 2 will continue with using the 14 day. Continue to work on eating healthy and being active. To call or message with any issues managing her glucose levels. Up to date with [facility]. Sees podiatry. Labs ordered today Assessment & Plan (07/14/2022 10:36 AM EDT): Control suboptimal, but not unreasonable given age, co-morbidities. No frequent or severe hypoglycemia. Reviewed timing of insulin in relation to meals. Family is doing the best they can to give insulin with meals, it is sometimes given later - advised to be sure to base dose on pre-meal glucose, not high reading after eating/not taking insulin AC. Would give some insulin when sugar is ok prior to meals, can give PC meal/lower dose, but would give some as often spiking up quite high after starting w/ glucose in low 100s. Continue to work on eating healthy & keeping active, as able. To call or send in BG with problems with glycemic control. Up to date with [facility]. Will do labs today. To call if hasn't heard from us within 1-2 weeks. Patient meets criteria for CGM as follows: (1) They have diabetes, (2) They are administering 3 or more insulin injections daily or using an insulin pump, (3) They are testing their glucose at least 4x daily via fingerstick or using a continuous glucose monitor, (4) They are adjusting their insulin dosage frequently based on the results of the blood glucose testing and anticipated food/carbohydrate intake (either formally through insulin to carbohydrate ratios/correction factor, or via insulin sliding scale, or informally based on experience), (5) they are seen at least every 6 months to review their regimen and ensure they continue to meet criteria. Assessment & Plan (01/17/2021 10:27 AM EDT): Avoid concentrated sugars in the diet. Continue insulin therapy as instructed by prescribing physician. Aim at BS= 90-120 mg % Primary hypertension 01/12/2021 Assessment & Plan (01/17/2021 10:26 AM EDT): Continue low-salt diet and antihypertensive medications as prescribed. Limit frequency of NSAID use to lowest necessary for shortest necessary time. Anticoagulated 01/12/2021 Assessment & Plan (01/17/2021 10:32 AM EDT): Avoid falls, injuries and cuts. Monitor for excessive bruising and bleeding. Other constipation 01/12/2021 Assessment & Plan (01/17/2021 10:32 AM EDT): Proper hydration: 6-8 glasses (8 ounces each) of fluids daily. Increase fiber intake in her daily diet by either eating 2-3 dry prunes at nighttime versus sprinkling oat bran or wheat bran 2 tablespoons daily over her cereals, sandwiches, soups, salads. Continue stool softeners such as Colace versus Senokot versus MiraLAX in addition to lactulose. Encouraged to continue daily walking. Acute pain of both knees 10/19/2020 Assessment & Plan (10/19/2020 11:00 AM EDT): Continue Voltaren gel, Tylenol 500 mg 2 pills for additional back pain relief. Primary osteoarthritis of left hip 09/22/2020 Primary osteoarthritis of left shoulder 09/23/19 21 Assessment & Plan (10/19/2020 11:00 AM EDT): Stable. Continue Voltaren gel, Tylenol 500 mg 2 pills for additional back pain relief. Assessment & Plan (09/22/2020 3:00 PM EDT): Trial of Tylenol Arthritis 650 mg Take 2 pills PO BID Lumbar nerve root impingement 09/22/2020 Assessment & Plan (10/19/2020 10:59 AM EDT): Patient will trial 1/2 dose of Gabapentin 100 mg qhs for back pain relief. She will try medication for two weeks. Continue Voltaren gel, Tylenol 500 mg 2 pills for additional back pain relief. Assessment & Plan (09/22/2020 3:03 PM EDT): Trial of Tylenol Arthritis 650 mg Take 2 pills PO BID Discussed Gabapentin 100 mg 2 pills PO qhs. Patient will try Tylenol Arthritis first for 2 full weeks and call office if not helping. Patient has seen Neurosurgeon and was told not a surgical candidate. Primary osteoarthritis of both hips 09/22/2020 Assessment & Plan (10/19/2020 10:59 AM EDT): Continue Voltaren gel, Tylenol 500 mg 2 pills for additional back pain relief. Assessment & Plan (09/22/2020 3:00 PM EDT): Trial of Tylenol Arthritis 650 mg Take 2 pills PO BID Lumbar spondylosis 09/22/2020 Assessment & Plan (10/19/2020 10:58 AM EDT): Patient will trial 1/2 dose of Gabapentin 100 mg qhs for back pain relief. She will try medication for two weeks. Continue Voltaren gel, Tylenol 500 mg 2 pills for additional back pain relief. Assessment & Plan (09/22/2020 3:00 PM EDT): Trial of Tylenol Arthritis 650 mg Take 2 pills PO BID Protrusion of lumbar intervertebral disc 021 Assessment & Plan (10/19/2020 10:58 AM EDT): Patient will trial 1/2 dose of Gabapentin 100 mg qhs for back pain relief. She will try medication for two weeks. Continue Voltaren gel, Tylenol 500 mg 2 pills for additional back pain relief. Assessment & Plan (09/22/2020 3:02 PM EDT): Trial of Tylenol Arthritis 650 mg Take 2 pills PO BID Discussed Gabapentin 100 mg 2 pills PO qhs. Patient will try Tylenol Arthritis first for 2 full weeks and call office if not helping. Atrial fibrillation 12/09/2019 Chronic diastolic (congestive) heart failure 04/[address] elevation myocardial infarction (STEMI) 12/09/2019 01/18/2023 Type 1 diabetes mellitus with peripheral neuropa thy Overview (07/14/2022): Dr. Simon Assessment & Plan (12/16/2024 12:31 PM EDT): Control is reasonable but not optimal given the patient's age and comorbidities based upon the patient's freestyle madeline 2+ sensor download. No frequent or severe hypoglycemia. Will maintain the patient's regimen. Continue to work on eating healthy. To call or message with any issues managing her glucose levels. Up to date with [facility]. Seeing podiatry in the senior living. Requested A1C be drawn next week as is due for it. skilled nursing form filled out, copy kept for chart. Assessment & Plan (09/18/2024 3:54 PM EDT): Control is suboptimal based upon the patient's freestyle madeline 14 day sensor download. No frequent or severe hypoglycemia. There was one recent low, it was corrected and she was fine. Her glucose levels have been running very high recently. Her daughter is not sure why the glucose levels have been consistently high. Wrote on the senior living sheet to have testing run for a UTI as it is possible for the consistent high glucose levels to be due to an infection. Her daughter wants the patient to have tighter glucose control with the use of intensive insulin management because the sliding scale is not controlling her levels as well. Discussed that with the nursing homes we can make recommendations but ultimately it the final decision is the provider there. She is interested in looking into switching the patient's madeline 14 day sensor to the dexcom G7. Discussed how this works to be able to transmit to her personal device. She was given paper prescriptions to take to the pharmacy to check on out of pocket cost as she wants to try this before committing to it. Continue to work on eating healthy. To call or message with any issues managing her glucose levels. Up to date with [facility]. skilled nursing form filled out, copy kept for chart. Assessment & Plan (07/11/2024 1:05 PM EDT): Control is reasonable but not optimal based upon the patient's freestyle madeline 14 day sensor download. No severe lows. She has been having episodes of hypoglycemia likely due to receiving too much toujeo. The senior living she is living in has her listed as having type 2 diabetes and therefore is not giving her prandial insulin if her glucose levels are below 200. On the form given from the senior living, I documented she has type 1 diabetes and needs to have insulin at any meal that contains carbohydrates as without it, her glucose levels will spike. Requested that her toujeo be lowered from 20 units to 16 units. She was previously using 8 units but the weight gain she should do okay with the 16 units. Her daughter would like to have the insulin be dosed as the intensive management she was doing. Discussed that the nursing homes will not do that. We came up with a simplified sliding scale BG 100-150 1 unit, 151-200 2 units, 201-250 3 units, 251-300 4 units, add 2 units for every 50 points above 300 up to 14 units. Gave written instructions on how to correct hypoglycemia as the senior living has been giving her a lot of boost drinks and this is likely adding to the weight gain. The daughter just ordered more freestyle madeline 14 day sensors, discussed when these get close to finishing, we should really consider switching to the dexcom. Her mother will be able to have the readings on the stunt driver, if they can get an old iphone to have with her mother there she doesn't have to use it but as long as it is charged it go send the glucose levels to the daughter's phone. She is interested in this, she will look at finding a phone like that for her mother to be able to do. Continue to work on eating as healthy as she can and being active. To call or message with any issues managing her glucose levels. Up to date with [facility] Assessment & Plan (02/14/2024 5:14 PM EST): Control suboptimal based on CGM. No frequent or severe hypoglycemia. Tending to drift down overnight, although not to the point of being too low and go up after eating. Would stick w/ current dose of basal insulin & consider being slightly more aggressive w/ mealtime insulin when they know she is going to be eating food that will spike glucose, particularly when someone is with her. Continue to work on eating healthy & keeping active, as able. To call or send in BG with problems with glycemic control. Follows w/ podiatry. Assessment & Plan (01/07/2024 11:42 AM EDT): Control is reasonable, based upon the patient's age and cormorbidities, but not optimal based upon the patient's freestyle madeline 14 day sensor download. No frequent or severe hypoglycemia. Her daughter has been able to get the freestyle madeline 14 day sensors. Discussed when they are no longer available we should switch her to the dexcom G7, as it will be able to read on her phone and her mother can have the reader. She is going to bring the forms for [employer] for her shoes to her next visit with Dr Carrillo. Will increase her toujeo to help with the highs. Discussed that the highs could be effecting the UTIs she is having. Will try increasing the toujeo first and then is needed will increase her humalog at meals by 1 units. Continue to work on eating healthy and being active. To call or message with any issues managing her glucose levels. Up to date with ophtho. Sees podiatry. Labs to be done with PCP. Assessment & Plan (08/14/2023 3:51 PM EDT): Control suboptimal based on CGM. No frequent or severe hypoglycemia. Tending to drift down overnight and go up after breakfast & stay up most of the day. Advised to lower the basal insulin from 12 to 11 units & add 1 unit of insulin with breakfast dose to help avoid spikes. They are not always able to give her insulin AC. Continue to work on eating healthy & keeping active, as able. To call or send in BG with problems with glycemic control. Follows w/ podiatry. Assessment & Plan (05/02/2023 11:53 AM EST): Control is reasonable, based upon the patient's age and cormorbidities, but not optimal based upon the patient's freestyle madeline 14 day sensor download. No frequent or severe hypoglycemia. Discussed with her daughter by the end of the year we will likely need to transition her mother's CGM to the dexcom G7 once the freestyle madeline 14 day sensors are no longer available. She wants to wait to do this as long as possible. Signed and faxed the forms to [employer] for her shoes. Will maintain her regimen. Continue to work on eating healthy and being active. To call or message with any issues managing her glucose levels. Up to date with ophtho. Sees podiatry. Labs were done with PCP will call for results Assessment & Plan (01/18/2023 11:00 AM EDT): Control suboptimal based on CGM. No frequent or severe hypoglycemia. Tending to be high most of the time w/ some post-meal spikes. They are not always able to give her insulin AC. Advised when they are able to do so & she is eating a meal that will likely spike her glucose, to add a unit to help prevent the spike. Continue to work on eating healthy & keeping active, as able. To call or send in BG with problems with glycemic control. Follows w/ podiatry. Foot & nail care good. Will do paperwork for shoes when received. Assessment & Plan (07/14/2022 10:29 AM EDT): Foot & nail care good. Follows with podiatry. Will do paperwork for DM shoes when we receive. Macular degeneration Resolved Problems Problem Noted Date Diagnosed Date Resolved Date Type 1 diabetes mellitus 07/14/202210/2023 supervisor intermediates current use of insulin 07/14/2022 01/18/2023 Encounters Date Type Department Care Team Description 12/25/2024 Orders Only [facility] [address] [place] [address] [place] [id number] Ann Carrillo MD Acquired hypothyroidism (Primary Dx) 12/22/2024 Telephone [facility] Endocrinology [address] [place] [id number] Ann Carrillo MD 12/16/2024 10:40 AM EDT Office Visit [facility] [address] [place] [address] [place] [id number] Felicita Morgan PA-C Type 1 diabetes mellitus with peripheral neuropathy (Primary Dx); Acquired hypothyroidism 11/20/2024 Telephone [facility] Endocrinology [address] [place] [address] [place] [address] Ann Carrillo MD Forms & Paperwork 10/07/2024 Telephone [facility] Endocrinology [address] [place] [address] Ann Carrillo MD Pamela request & Freestyle Madeline (Pamela request & Freestyle Madeline) from Last 3 Months Family History Medical History Relation Comments Coronary artery disease Father Hypertension Father Coronary artery disease Mother Hypertension Mother Diabetes Paternal Cousin Goiter Paternal Grandmother Hypothyroidism Paternal Grandmother Relation Status Comments Father Maternal Grandfather Maternal Grandmother Mother Paternal Cousin Paternal Grandfather Paternal Grandmother Social History Tobacco Use Types Packs/Day Years Used Date Smoking Tobacco: Former Cigarettes 1 7 1 953 - 1960 Passive Smoke Exposure: Past Smokeless Tobacco: Never Tobacco Cessation:Counseling Given: Not Answered Comments:patient quit smoking in her 20s Alcohol Use Standard Drinks/Week [...] Sign Reading Time Taken Comments Blood Pressure 132/76 12/16/2024 10:52 AM EDT Pulse 75 12/16/2024 10:52 AM EDT Temperature 36.2 C (97.1 F) 01/02/2024 8:11 AM EDT Respiratory Rate 17 09/10/2022 12:2 9 PM EDT Oxygen Saturation 99% 12/16/2024 10: 52 AM EDT Inhaled Oxygen Concentration - - Weight 63.4 kg (139 lb 12.8 oz) 02/14/2024 9:42 AM EST Height 149.9 cm (4' 11.02 ) 12/16/2024 10:52 AM EDT Body Mass Index 28.22 02/14/2024 9:42 AM EST Plan of Treatment Upcoming Encounters Date Type Department Care Team (Late st Contact Info) Description 03/25/2025 10:20 AM EST Office Visit [facility] [address] [place] [address] Ann Carrillo MD [address] [place] [phone] 06/18/2025 11:00 AM EDT Office Visit [facility] [address] [place] [address] Ann Carrillo MD [address] [place] [phone] 09/15/2025 11:00 AM EDT Office Visit [facility] [address] [place] [address] Felicita Morgan PA-C [address] [place] [phone] Health Maintenance Due Date Last Done Comments DEPRESSION SCREENING 1948 LIPID PANEL 1954 ZOSTER VACCINES (1 of 2) 1986 OSTEOPOROSIS SCREENING INITIAL (ONE-TIME) 2001 RSV VACCINE (1 - 1-dose 75+ series) 08/17/2011 PNEUMOCOCCAL VACCINES (50+ years) (2 of 2 - PPSV23) 08/06/2018 06/11/2018 DIABETIC EYE EXAM 01/12/2021 ALT LEVEL (ALANINE AMINOTRANSFERASE) 07/15/2023 07/14/2022, 09/22/2020 CREATININE LEVEL 07/15/2023 07/14/2022, 09/22/2020 INFLUENZA VACCINE (#1) 2024 , 02/05/2021, 02/02/2020, Additional history exists COVID-19 VACCINE (3 - 2024- season) 2024 02/17/2021, 06/15/2020 HEMOGLOBIN A1C 12/18/2024 09/17/2024, 04/09, 07/14/2022 TSH LEVEL 08/22/2025 08/22/2024, 0310/2024, 04/25/2024, Additional history exists Adult Td,Tdap Booster 09/21/2029 09/22/2019, 015 HEPATITIS A VACCINES Aged Out No long er eligible based on patient's age to complete this topic HIB VACCINES Aged Out No longer eligi ble based on patient's age to complete this topic MENINGOCOCCAL VACCINES (ACWY) Aged Out No longer eligible based on patient's age to complete this topic MENINGOCOCCAL VACCINES (B) Aged Out N o longer eligible based on patient's age to complete this topic Medical Devices Not on file Procedures Procedure Name Priority Date/Time Associated Diagnosis Comments HEMOGLOBIN A1C Routine 07/14/2022 10:08 AM EDT Insulin dependent diabetes mellitus type IA TSH WITH REFLEX Routine 07/14/2022 10:08 AM EDT Acquired hypothyroidism BASIC METABOLIC PANEL Routine 07/14/2022 10:08 AM EDT Insulin dependent diabetes mellitus type IA ALANINE AMINOTRANSFERASE (ALT) Routine 07/14/2022 10:08 AM EDT Insulin dependent diabetes mellitus type IA from Last 3 Months or Most Recently Relevant to Health Maintenance Results * TSH with reflex (07/14/2022 10:08 AM EDT) TSH 3.94 0.27 - 4.20 uIU/mL [facility] Blood 07/14/2022 10:0 8 AM EDT 07/14/2022 10:10 AM EDT us Ann Carrillo MD LAB BLOOD ORDERABLES F inal Result [address] [address] * Alanine aminotransferase (ALT) (07/14/2022 10:08 AM EDT) ALT 16 0 - 40 U/L [facility] Blood 07/14/2022 10:0 8 AM EDT 07/14/2022 10:10 AM EDT us Ann Carrillo MD LAB BLOOD ORDERABLES F inal Result Performing Organization Address City/[facility]/ZIP Co de Phone Number [address] [address] * (ABNORMAL) Hemoglobin A1c (07/14/2022 10:08 AM EDT) HEMOGLOBIN A1C 9.2(H) 4.3 - 5.8 % [facility] Blood 07/14/2022 10:0 8 AM EDT 07/14/2022 10:10 AM EDT us Ann Carrillo MD LAB BLOOD ORDERABLES F inal Result Performing Organization Address [facility] Co de Phone Number [address] [address] * (ABNORMAL) Basic metabolic panel (07/14/2022 10:08 AM EDT) SODIUM 139 133 - 146 mmol/L [facility] CHLORIDE 99 96 - 108 mmol/L [facility] POTASSIUM 4.4 3.3 - 5.1 mmol/L [facility] CO2 30 21 - 35 mmol/L [facility] BUN 31(H) 6 - 19 mg/dL [facility] CREATININE 1.30 0.5 - 1.5 mg/dL [facility] GLUCOSE 178(H) 70 - 99 mg/dL [facility] CALCIUM 9.1 8.4 - 10.3 mg/dL [facility] EGFR 40(L) >59 mL/min/1.7 3m2 [facility] Comment:Estimated glomerular filtration rate calculated using the CKD-EPI refit equation. ANION GAP 14 10 - 20 mmol/L [facility] Blood 07/14/2022 10:0 8 AM EDT 07/14/2022 10:10 AM EDT us Ann Carrillo MD LAB BLOOD ORDERABLES F inal Result [facility] [address] [place] [address] from Last 3 Months or Most Recently Relevant to Health Maintenance Insurance MEDICARE PART A & B [facility] MEDEX SUPPLEMENT MEDICARE PART A & B [employer] SUPPLEMENT MEDICARE PART A & B [employer] MEDEX SUPPLEMENT MEDICARE PART A & B [facility] [employer] CROSS MEDEX SUPPLEMENT MEDICARE PART A & B [employer] CROSS MEDEX SUPPLEMENT MEDICARE PART A & B [employer] MEDEX SUPPLEMENT MEDICARE PART A & B [employer] SUPPLEMENT MEDICARE PART A & B [employer] MEDEX SUPPLEMENT MEDICARE PART A & B [employer] SUPPLEMENT Care Teams Dairy Science Teacher Relationship Specialty Start Date End Date Monique White MD [address] [place] [phone] PCP - General Internal Medicine 08/30/19 Sohail Penaloza MD [address] [place] [phone] Nephrology 07/14/22 Arturo Simon DPM [address] [place] [id number] Podiatry 07/14/22 Additional Source Comments The information contained in this document represents components of the legal health record. It is not the complete legal health record.[facility]
--- OUTSIDE RECORDS SUMMARY | 2025-01-07 14:20 | XMS_ITS | Encounter Summary ---
Author Organization [facility] Address [address] [place] [phone] Care Team Providers Care Executive Vice President Business Development Name Role Phone Torrey Kwok MD Primary Care Provider Encounter Details Date Type Department Care Team (Late st Contact Info) Description 06/28/2024 Lab Requisition [facility] - Main Lab [address] [facility] [place] [address] Torrey Kwok MD [address] [place], [place] [id number] Type 2 diabetes mellitus with diabetic chronic [...] (CMS/HCC) Essential (primary) hypertension Heart failure, unspecified ([facility]) 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 ([facility]) documented in this encounter Results * (ABNORMAL) Basic metabolic panel (06/30/2024 6:10 AM EDT) Sodium 142 133 - 145 mmol/L LAB CHEMISTRY METHOD 06/30/2024 12:00 PM [facility] Potassium 4.1 3.5 - 5.5 mmol/L LAB CHEMISTRY METHOD 06/30/2024 12:00 PM [facility] Chloride 106 96 - 110 mmol/L LAB CHEMISTRY METHOD 06/30/2024 12:00 PM [facility] CO2 28 21 - 32 mmol/L LAB CHEMISTRY METHOD 06/30/2024 12:00 PM [facility] Anion Gap 8 3 - 11 LAB CHEMISTRY METHOD 06/30/2024 12:00 PM [facility] Glucose 159(H) 70 - 100 mg/dL LAB CHEMISTRY METHOD 06/30/2024 12:00 PM [facility] BUN 47(H) 5 - 25 mg/dL LAB CHEMISTRY METHOD 06/30/2024 12:00 PM [facility] Creatinine 1.11(H) 0.50 - 1.10 mg/dL LAB CHEMISTRY METHOD 06/30/2024 12:00 PM [facility] eGFR 48(L) >=60 mL/min/1. 73m2 LAB CHEMISTRY METHOD 06/30/2024 12:00 PM [facility] Comment:Calculation based on the Chronic Kidney Disease Epidemiology Collaboration (CKD-EPI) equation refit without adjustment for race. BUN/Creatinine Ratio 42.3 LAB CHEMISTRY METHOD 06/30/2024 12:00 PM [facility] Calcium 8.8 8.5 - 10.5 mg/dL LAB CHEMISTRY METHOD 06/30/2024 12:00 PM [facility] Blood Venous blood specimen / Unknown Venipuncture / Unknown 06/30/2024 6:10 AM EDT 06/30/2024 11:01 AM EDT Torrey Kwok MD LAB BLOOD ORDERABLES Final Resul t [facility] [address] [place] [address], * (ABNORMAL) Complete blood count (06/30/2024 6:10 AM EDT) WBC 6.0 4.8 - 10.8 K/mcL LAB HEMETOLOGY METHOD 06/30/2024 11:46 AM EDT [facility] RBC 2.90(L) 3.80 - 4.80 M/mcL LAB HEMETOLOGY METHOD 06/30/2024 11:46 AM EDT [facility] Hemoglobin 9.5(L) 11.5 - 16.0 g/dL LAB HEMETOLOGY METHOD 06/30/2024 11:46 AM EDT [facility] Hematocrit 29.9(L) 35.0 - 47.0 % LAB HEMETOLOGY METHOD 06/30/2024 11:46 AM T [facility] MCV 101.7(H) 79.0 - 98.0 FL LAB HEMETOLOGY METHOD 06/30/2024 11:46 AM EDT [facility] MCH 32.3(H) 27.0 - 32.0 pcg LAB HEMETOLOGY METHOD 06/30/2024 11:46 AM EDT [facility] MCHC 31.8(L) 32.0 - 37.0 g/dL LAB HEMETOLOGY METHOD 06/30/2024 11:46 AM EDT [facility] RDW 18.5(H) 11.0 - 15.0 % LAB HEMETOLOGY METHOD 06/30/2024 11:46 AM EDT [facility] Platelets 309 130 - 400 K/mcL LAB HEMETOLOGY METHOD 06/30/2024 11:46 AM EDT [facility] MPV 10.7 7.0 - 11.0 FL LAB HEMETOLOGY METHOD 06/30/2024 11:46 AM EDT [facility] NRBC 0.0 <1.0 % LAB HEMETOLOGY METHOD 06/30/2024 11:46 AM EDT [facility] NRBC Absolute 0.00 <0.10 K/mcL LAB HEMETOLOGY METHOD 06/30/2024 11:46 AM EDT [facility] Blood Venous blood specimen / Unknown Venipuncture / Unknown 06/30/2024 6:10 AM EDT 06/30/2024 11:01 AM EDT Torrey Kwok MD LAB BLOOD ORDERABLES Final Resul t [facility] [address] [place] [address], documented in this encounter Visit Diagnoses Diagnosis 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, [facility] V28) Essential (primary) hypertension Unspecified essential hypertension Heart failure, unspecified ([facility]/HCC V24, [facility] V28) Heart failure, unspecified 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
--- OUTSIDE RECORDS SUMMARY | 2025-01-07 14:20 | XMS_ITS ---
Author Organization [facility] Care Team Providers Care Folder Seamer Name Role Phone Elijah Lim Unavailable Unavailable Sasha Garrison Unavailable Unavailable Allergies and adverse reactions No Known Allergies Care Team Name Role Address Phone Organization Dates Elijah iLm PCP [address] [facility] [address], [place], [address], [place] (Office): : [facility] 12/09/2019 - 12/11/2019 Sasha Garrison [address], [place], [address], [facility] (Office): [facility] 12/09/2019 - 12/11/2019 Immunizations Immunization Status Vaccine Details Vaccine Code CodeSystem Arian e Notes TB 2 Step Mantoux Skin Test completed tuberculin skin test; unspecified formulation lotNumber: [id number] expiry: 08/28/2021 Mfg: [employer] offi pasteur Given [...] 1 CHRONIC DIASTOLIC (CONGESTIVE) HEART FAILURE 12/09/[address] active 2 CONSTIPATION, UNSPECIFIED 12/09/[address] active 3 ESSENTIAL (PRIMARY) HYPERTENSION 12/09/[address] active 4 HYPOTHYROIDISM, UNSPECIFIED 12/09/[address] active 5 OTHER LACK OF COORDINATION 12/09/[address] active 6 PAIN IN RIGHT HIP 12/09/[address] active 7 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 12/09/[address] active 8 TYPE 2 DIABETES MELLITUS WITHOUT COMPLICATIONS 12/09/[address] active 9 UNSPECIFIED ATRIAL FIBRILLATION 12/09/[address] active 10 UNSPECIFIED FALL, SUBSEQUENT ENCOUNTER 12/09/[address] active 11 UNSPECIFIED OSTEOARTHRITIS, UNSPECIFIED SITE 12/09/[address] active 12 UNSTEADINESS ON FEET 12/09/[address] active 13 WEAKNESS 12/09/[address] active Reason for Referral No Reasons for Referral Entered Social History Social History Observation Description Start Date End Date Code Code System Current Smoking Status Tobacco smoking consumption unknown 668122858 SNOMED CT Sex Assigned At Female 1935 18780-6 [facility] Gender Identity Sexual Orientation Vital Signs Code Code System Vitals Name Values and Units Timing Information 75942-6 [facility] Pain Level Value=0.0 12/11/2019 9279-1 [facility] Respiratory Rate Value=18.0 Units=/m in 12/11/2019 8462-4 [facility] Blood Pressure-Diastolic Value=57 Un its=mmHg 12/11/2019 8480-6 [facility] Blood Pressure-Systolic Rcpbq=989 Un its=mmHg 12/11/2019 8310-5 [facility] Body Temperature Value=97.1 Units= F 12/11/2019 8867-4 [facility] Heart rate Value=63.0 Units=/min 06/2019 25748-6 [facility] O2 % BldC Oximetry Value=95.0 Units= % 12/11/2019 2339-0 [facility] Blood Sugar Anshx=624.0 Units=mg/dL 12/11/2019 21011-1 [facility] Weight Mxqft=330.6 Units=Lbs 05/2019 8302-2 [facility] Height Value=62.0 Units=Inches 12/09/2019
--- OUTSIDE RECORDS SUMMARY | 2025-01-07 14:20 | XMS_ITS | Encounter Summary ---
Author Organization [facility] Address [address] [place] [phone] Care Team Providers Care Subway Repair Supervisor Name Role Phone Torrey Kwok MD Primary Care Provider [phone] Encounter Details Date Type Department Care Team (Late st Contact Info) Description 06/02/2024 Lab Requisition [facility] - Main Lab [address] [facility] [place] [address] Torrey Kwok MD [address] [place], [place] [phone] Chronic diastolic (congestive) heart failure (CMS/HCC V24, [...] [facility] Comment:Calculation based on the Chronic Kidney Disease Epidemiology Collaboration (CKD-EPI) equation refit without adjustment for race. BUN/Creatinine Ratio 30.1 LAB CHEMISTRY METHOD 06/02/2024 3:36 PM [facility] Calcium 8.7 8.5 - 10.5 mg/dL LAB CHEMISTRY METHOD 06/02/2024 3:36 PM [facility] Blood Venous blood specimen / Unknown Venipuncture / Unknown 06/02/2024 12:17 PM EST 06/02/2024 2:05 PM EST Torrey Kwok MD LAB BLOOD ORDERABLES Final Resul t [facility] [address] [place] [address], * (ABNORMAL) Complete blood count (06/02/2024 12:17 PM EST) [facility] WBC 9.0 4.8 - 10.8 K/mcL LAB HEMETOLOGY METHOD 06/02/2024 2:27 PM EST [facility] RBC 3.60(L) 3.80 - 4.80 M/mcL LAB HEMETOLOGY METHOD 06/02/2024 2:27 PM EST [facility] Hemoglobin 11.5 11.5 - 16.0 g/dL LAB HEMETOLOGY METHOD 06/02/2024 2:27 PM [facility] Hematocrit 35.4 35.0 - 47.0 % LAB HEMETOLOGY METHOD 06/02/2024 2:27 PM EST [facility] MCV 97.8 79.0 - 98.0 FL LAB HEMETOLOGY METHOD 06/02/2024 2:27 PM EST [facility] MCH 31.8 27.0 - 32.0 pcg LAB HEMETOLOGY METHOD 06/02/2024 2:27 PM EST [facility] MCHC 32.5 32.0 - 37.0 g/dL LAB HEMETOLOGY METHOD 06/02/2024 2:27 PM EST [facility] RDW 17.8(H) 11.0 - 15.0 % LAB HEMETOLOGY METHOD 06/02/2024 2:27 PM EST [facility] Platelets 342 130 - 400 K/mcL LAB HEMETOLOGY METHOD 06/02/2024 2:27 PM [facility] MPV 10.4 7.0 - 11.0 FL LAB HEMETOLOGY METHOD 06/02/2024 2:27 PM EST [facility] NRBC 0.0 <1.0 % LAB HEMETOLOGY METHOD 06/02/2024 2:27 PM EST [facility] NRBC Absolute 0.00 <0.10 K/mcL LAB HEMETOLOGY METHOD 06/02/2024 2:27 PM EST [facility] Blood Venous blood specimen / Unknown Venipuncture / Unknown 06/02/2024 12:17 PM EST 06/02/2024 2:05 PM EST Torrey Kwok MD LAB BLOOD ORDERABLES Final Resul t [facility] [address] [place] [address], documented in this encounter Visit Diagnoses Diagnosis Chronic diastolic (congestive) heart failure (CMS/HCC V24, CMS/HCC V28) Chronic kidney disease, stage 3 unspecified (CMS/HCC V24, CMS/HCC V28) documented in this encounter Additional Health Concerns Infection Onset Date Last Indicated Resolved Time Respiratory Rule-Out 07/12/2024 07/11/2024 025 11:25 AM EDT documented as of this encounter Care Teams Subway Repair Supervisor Relationship Specialty Start Date End Date Torrey Kwok MD [address] [place] [address] [address] [place] [address] PCP - General Geriatric Medicine 04/25/24 documented as of this encounter
--- OUTSIDE RECORDS SUMMARY | 2025-01-07 14:20 | XMS_ITS | Encounter Summary ---
Author Organization [facility] Address [address] [place] [address] Care Team Providers Care Washhouse Hand Name Role Phone Torrey Kwok MD Primary Care Provider Encounter Details Date Type Department Care Team (Late st Contact Info) Description 05/16/2024 Lab Requisition [facility] - Main Lab [address] [facility] [place] [address] Torrey Kwok MD [address] [place], [place] [phone] Heart failure, unspecified (CMS/HCC V24, CMS/HCC V28); [...] mmol/L LAB CHEMISTRY METHOD 05/19/2024 2:03 PM [facility] Potassium 3.7 3.5 - 5.5 mmol/L LAB CHEMISTRY METHOD 05/19/2024 2:03 PM [facility] Chloride 102 96 - 110 mmol/L LAB CHEMISTRY METHOD 05/19/2024 2:03 PM [facility] CO2 25 21 - 32 mmol/L LAB CHEMISTRY METHOD 05/19/2024 2:03 PM [facility] Anion Gap 10 3 - 11 LAB CHEMISTRY METHOD 05/19/2024 2:03 PM [facility] Glucose 92 70 - 100 mg/dL LAB CHEMISTRY METHOD 05/19/2024 2:03 PM [facility] BUN 23 5 - 25 mg/dL LAB CHEMISTRY METHOD 05/19/2024 2:03 PM [facility] Creatinine 0.97 0.50 - 1.10 mg/dL LAB CHEMISTRY METHOD 05/19/2024 2:03 PM [facility] eGFR 57(L) >=60 mL/min/1. 73m2 LAB CHEMISTRY METHOD 05/19/2024 2:03 PM [facility] Comment:Calculation based on the Chronic Kidney Disease Epidemiology Collaboration (CKD-EPI) equation refit without adjustment for race. BUN/Creatinine Ratio 23.7 LAB CHEMISTRY METHOD 05/19/2024 2:03 PM [facility] Calcium 8.8 8.5 - 10.5 mg/dL LAB CHEMISTRY METHOD 05/19/2024 2:03 PM [facility] Blood Venous blood specimen / Unknown Venipuncture / Unknown 05/19/2024 7:33 AM EST 05/19/2024 12:17 PM EST us Torrey Kwok MD LAB BLOOD ORDERABLES Final Resul t [facility] [address] [place] [address], * (ABNORMAL) Complete blood count (05/19/2024 7:33 AM EST) [facility] WBC 5.4 4.8 - 10.8 K/mcL LAB HEMETOLOGY METHOD 05/19/2024 1:26 PM EST [facility] RBC 3.50(L) 3.80 - 4.80 M/mcL LAB HEMETOLOGY METHOD 05/19/2024 1:26 PM [facility] Hemoglobin 11.1(L) 11.5 - 16.0 g/dL LAB HEMETOLOGY METHOD 05/19/2024 1:26 PM [facility] Hematocrit 35.7 35.0 - 47.0 % LAB HEMETOLOGY METHOD 05/19/2024 1:26 PM EST [facility] MCV 103.5(H) 79.0 - 98.0 FL LAB HEMETOLOGY METHOD 05/19/2024 1:26 PM [facility] MCH 32.2(H) 27.0 - 32.0 pcg LAB HEMETOLOGY METHOD 05/19/2024 1:26 PM [facility] MCHC 31.1(L) 32.0 - 37.0 g/dL LAB HEMETOLOGY METHOD 05/19/2024 1:26 PM EST [facility] RDW 20.0(H) 11.0 - 15.0 % LAB HEMETOLOGY METHOD 05/19/2024 1:26 PM [facility] Platelets 344 130 - 400 K/mcL LAB HEMETOLOGY METHOD 05/19/2024 1:26 PM [facility] MPV 10.8 7.0 - 11.0 FL LAB HEMETOLOGY METHOD 05/19/2024 1:26 PM [facility] NRBC 0.0 <1.0 % LAB HEMETOLOGY METHOD 05/19/2024 1:26 PM EST [facility] NRBC Absolute 0.00 <0.10 K/mcL LAB HEMETOLOGY METHOD 05/19/2024 1:26 PM EST [facility] Blood Venous blood specimen / Unknown Venipuncture / Unknown 05/19/2024 7:33 AM EST 05/19/2024 12:17 PM EST us Torrey Kwok MD LAB BLOOD ORDERABLES Final Resul t [facility] [address] [place] [address], documented in this encounter Visit Diagnoses Diagnosis [...] documented as of this encounter Care Teams Washhouse Hand Relationship Specialty Start Date End Date Torrey Kwok MD [address] [place] [address] [address] [place] [address] PCP - General Geriatric Medicine 04/25/24 documented as of this encounter
--- OUTSIDE RECORDS SUMMARY | 2025-01-07 14:20 | XMS_ITS | Encounter Summary ---
Author Organization [facility] Address [address] [place] [phone] Care Team Providers Care Casting Plug Assembler Name Role Phone Torrey Kwok MD Primary Care Provider [phone] Encounter Details Date Type Department Care Team (Late st Contact Info) Description 12/13/2024 Lab Requisition [facility] - Main Lab 299 [facility] [place] [address] oTrrey Kwok MD [address] [place], [place] [id number] Type 2 diabetes mellitus with diabetic chronic [...] Associated Diagnosis Comments COMPLETE BLOOD COUNT Routine 12/15/2024 6:28 AM EDT 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, CMS/HCC V28) Essential (primary) hypertension Heart failure, unspecified (CMS/HCC V24, CMS/HCC V28) 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 V24, CMS/HCC V28) BASIC METABOLIC PANEL Routine 12/15/2024 6:28 AM EDT Type 2 diabetes mellitus with diabetic chronic kidney disease ([facility] V24, [facility] V28) Essential (primary) hypertension Heart failure, unspecified ([facility] V24, [facility] V28) 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 ([facility] V24, [facility] V28) documented in this encounter Results * (ABNORMAL) Complete blood count (12/15/2024 6:28 AM EDT) [facility] WBC 5.3 4.8 - 10.8 K/mcL LAB HEMETOLOGY METHOD 12/15/2024 9:45 AM [facility] RBC 3.50(L) 3.80 - 4.80 M/mcL LAB HEMETOLOGY METHOD 12/15/2024 9:45 AM [facility] Hemoglobin 10.8(L) 11.5 - 16.0 g/dL LAB HEMETOLOGY METHOD 12/15/2024 9:45 AM [facility] Hematocrit 34.0(L) 35.0 - 47.0 % LAB HEMETOLOGY METHOD 12/15/2024 9:45 AM [facility] MCV 97.7 79.0 - 98.0 FL LAB HEMETOLOGY METHOD 12/15/2024 9:45 AM [facility] MCH 31.0 27.0 - 32.0 pcg LAB HEMETOLOGY METHOD 12/15/2024 9:45 AM [facility] MCHC 31.8(L) 32.0 - 37.0 g/dL LAB HEMETOLOGY METHOD 12/15/2024 9:45 AM [facility] RDW 15.4(H) 11.0 - 15.0 % LAB HEMETOLOGY METHOD 12/15/2024 9:45 AM [facility] Platelets 299 130 - 400 K/mcL LAB HEMETOLOGY METHOD 12/15/2024 9:45 AM EDT [facility] MPV 10.7 7.0 - 11.0 FL LAB HEMETOLOGY METHOD 12/15/2024 9:45 AM EDT [facility] NRBC 0.0 <1.0 % LAB HEMETOLOGY METHOD 12/15/2024 9:45 AM EDT [facility] NRBC Absolute 0.00 <0.10 K/mcL LAB HEMETOLOGY METHOD 12/15/2024 9:45 AM EDT [facility] Blood Venous blood specimen / Unknown Venipuncture / Unknown 12/15/2024 6:28 AM EDT 12/15/2024 9:33 AM EDT us Torrey Kwok MD LAB BLOOD ORDERABLES Final Resul t [facility] [address] [place] [address], * (ABNORMAL) Basic metabolic panel (12/15/2024 6:28 AM EDT) Sodium 136 133 - 145 mmol/L LAB CHEMISTRY METHOD 12/15/2024 10:12 AM [facility] Potassium 4.1 3.5 - 5.5 mmol/L LAB CHEMISTRY METHOD 12/15/2024 10:12 AM [facility] Chloride 99 96 - 110 mmol/L LAB CHEMISTRY METHOD 12/15/2024 10:12 AM [facility] CO2 30 21 - 32 mmol/L LAB CHEMISTRY METHOD 12/15/2024 10:12 AM [facility] Anion Gap 7 3 - 11 LAB CHEMISTRY METHOD 12/15/2024 10:12 AM [facility] Glucose 321(H) 70 - 100 mg/dL LAB CHEMISTRY METHOD 12/15/2024 10:12 AM EDT [facility] BUN 37(H) 5 - 25 mg/dL LAB CHEMISTRY METHOD 12/15/2024 10:12 AM EDT [facility] Creatinine 1.30(H) 0.50 - 1.10 mg/dL LAB CHEMISTRY METHOD 12/15/2024 10:12 AM EDT [facility] eGFR 40(L) >=60 mL/min/1. 73m2 LAB CHEMISTRY METHOD 12/15/2024 10:12 AM EDT [facility] Comment:Calculation based on the Chronic Kidney Disease Epidemiology Collaboration (CKD-EPI) equation refit without adjustment for race. BUN/Creatinine Ratio 28.5 LAB CHEMISTRY METHOD 12/15/2024 10:12 AM EDT [facility] Calcium 8.9 8.5 - 10.5 mg/dL LAB CHEMISTRY METHOD 12/15/2024 10:12 AM T [facility] Blood Venous blood specimen / Unknown Venipuncture / Unknown 12/15/2024 6:28 AM EDT 12/15/2024 9:31 AM EDT us Torrey Kwok MD LAB BLOOD ORDERABLES Final Resul t [facility] [address] [place] [address], documented in this encounter Visit Diagnoses Diagnosis 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, CMS/HCC V28) Essential (primary) hypertension Unspecified essential hypertension Heart failure, unspecified (CMS/HCC V24, CMS/HCC V28) Heart failure, unspecified 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
--- OUTSIDE RECORDS SUMMARY | 2025-01-07 14:20 | XMS_ITS | Encounter Summary ---
Author Organization [facility] Address [address] [place] [address] Care Team Providers Care Wire Twister Name Role Phone Torrey Kwok MD Primary Care Provider [phone] Encounter Details Date Type Department Care Team (Late st Contact Info) Description 05/30/2024 Lab Requisition [facility] - Main Lab [address] [place] [address] Torrey Kwok MD [address] [place], [place] [phone] Essential (primary) hypertension; Type 2 diabetes mellitus [...] LAB CHEMISTRY METHOD 05/30/2024 5:00 PM EST [facility] Potassium 3.6 3.5 - 5.5 mmol/L LAB CHEMISTRY METHOD 05/30/2024 5:00 PM [facility] Chloride 104 96 - 110 mmol/L LAB CHEMISTRY METHOD 05/30/2024 5:00 PM [facility] CO2 26 21 - 32 mmol/L LAB CHEMISTRY METHOD 05/30/2024 5:00 PM [facility] Anion Gap 9 3 - 11 LAB CHEMISTRY METHOD 05/30/2024 5:00 PM [facility] Glucose 81 70 - 100 mg/dL LAB CHEMISTRY METHOD 05/30/2024 5:00 PM [facility] BUN 31(H) 5 - 25 mg/dL LAB CHEMISTRY METHOD 05/30/2024 5:00 PM [facility] Creatinine 1.11(H) 0.50 - 1.10 mg/dL LAB CHEMISTRY METHOD 05/30/2024 5:00 PM [facility] eGFR 48(L) >=60 mL/min/1. 73m2 LAB CHEMISTRY METHOD 05/30/2024 5:00 PM [facility] Comment:Calculation based on the Chronic Kidney Disease Epidemiology Collaboration (CKD-EPI) equation refit without adjustment for race. BUN/Creatinine Ratio 27.9 LAB CHEMISTRY METHOD 05/30/2024 5:00 PM [facility] Calcium 8.8 8.5 - 10.5 mg/dL LAB CHEMISTRY METHOD 05/30/2024 5:00 PM [facility] Blood Venous blood specimen / Unknown Venipuncture / Unknown 05/30/2024 3:45 PM EST 05/30/2024 4:21 PM EST us oTrrey Kwok MD LAB BLOOD ORDERABLES Final Resul t [facility] [address] [place] [address], [place] [phone] * (ABNORMAL) Complete blood count (05/30/2024 3:45 PM EST) [facility] WBC 7.1 4.8 - 10.8 K/mcL LAB HEMETOLOGY METHOD 05/30/2024 4:35 PM [facility] RBC 3.20(L) 3.80 - 4.80 M/mcL LAB HEMETOLOGY METHOD 05/30/2024 4:35 PM [facility] Hemoglobin 10.3(L) 11.5 - 16.0 g/dL LAB HEMETOLOGY METHOD 05/30/2024 4:35 PM [facility] Hematocrit 32.0(L) 35.0 - 47.0 % LAB HEMETOLOGY METHOD 05/30/2024 4:35 PM [facility] MCV 100.0(H) 79.0 - 98.0 FL LAB HEMETOLOGY METHOD 05/30/2024 4:35 PM [facility] MCH 32.2(H) 27.0 - 32.0 pcg LAB HEMETOLOGY METHOD 05/30/2024 4:35 PM [facility] MCHC 32.2 32.0 - 37.0 g/dL LAB HEMETOLOGY METHOD 05/30/2024 4:35 PM [facility] RDW 18.3(H) 11.0 - 15.0 % LAB HEMETOLOGY METHOD 05/30/2024 4:35 PM [facility] Platelets 319 130 - 400 K/mcL LAB HEMETOLOGY METHOD 05/30/2024 4:35 PM [facility] MPV 10.1 7.0 - 11.0 FL LAB HEMETOLOGY METHOD 05/30/2024 4:35 PM [facility] NRBC 0.0 <1.0 % LAB HEMETOLOGY METHOD 05/30/2024 4:35 PM [facility] NRBC Absolute 0.00 <0.10 K/mcL LAB HEMETOLOGY METHOD 05/30/2024 4:[address] [facility] Blood Venous blood specimen / Unknown Venipuncture / Unknown 05/30/2024 3:45 PM EST 05/30/2024 4:21 PM EST us Torrey Kwok MD LAB BLOOD ORDERABLES Final Resul t [facility] [address] [place] [address], documented in this encounter Visit Diagnoses Diagnosis Essential (primary) hypertension Unspecified essential hypertension Type 2 diabetes mellitus without complications (CMS/HCC V24, CMS/HCC V28) documented in this encounter Additional Health Concerns Infection Onset Date Last Indicated Resolved Time Respiratory Rule-Out 07/12/2024 07/11/2024 025 11:25 AM EDT documented as of this encounter Care Teams Wire Twister Relationship Specialty Start Date End Date Torrey Kwok MD [address] [place] [address] [address] [place] [address] PCP - General Geriatric Medicine 04/25/24 documented as of this encounter
--- OUTSIDE RECORDS SUMMARY | 2025-01-07 14:20 | XMS_ITS | Encounter Summary ---
Author Organization [facility] Address [address] [place] [address] Care Team Providers Care Cook Soup Name Role Phone Torrey Kwok MD Primary Care Provider [phone] Encounter Details Date Type Department Care Team (Late st Contact Info) Description 04/29/2024 Lab Requisition [facility] - Main Lab 299 [facility] [place] [address] Torrey Kwok MD [address] [place] [address] Dysuria Social History Tobacco Use Types Packs/Day [...] Escherichia coli(A) ANDRE 05/01/2024 11:04 AM EST [facility] Urine Urine specimen from urinary [...] MICROBIOLOGY - GENERAL ORDER GENET Final Result [facility] [address] [place] [address], * Frost urine culture tube (04/28/2024 12:15 PM EST) Extra Tube Hold for add-ons. 04/29/2024 11:01 AM EST [facility] Comment:Auto resulted. Urine Urine specimen obtained by clean catch procedure / Unknown 04/28/2024 12:15 PM EST 04/29/2024 9:53 AM EST us Torrey Kwok MD LAB URINE ORDERABLES Final Resul t [facility] [address] [place] [address], * (ABNORMAL) Urinalysis with reflex microscopic and culture (04/28/2024 12:15 PM EST) Specific [place] Urine 1.021 1.003 - 1.030 LAB URINALYSIS - AUTOMATED METHOD 04/29/2024 11:05 AM [facility] pH, Urine 5.5 5.0 - 8.0 pH LAB URINALYSIS - AUTOMATED METHOD 04/29/2024 11:05 AM [facility] Leukocytes, Urine Trace(A) Negative LAB URINALYSIS - AUTOMATED METHOD 04/29/2024 11:05 AM [facility] Nitrite, Urine Negative Negative LAB URINALYSIS - AUTOMATED METHOD 04/29/2024 11:05 AM [facility] Protein, Urine Trace <=Trace mg/dL LAB URINALYSIS - AUTOMATED METHOD 04/29/2024 11:05 AM [facility] Glucose, Urine >=1000(A) Negative mg/dL LAB URINALYSIS - AUTOMATED METHOD 04/29/2024 11:05 AM [facility] Ketones, Urine 15(A) Negative mg/dL LAB URINALYSIS - AUTOMATED METHOD 04/29/2024 11:05 AM [facility] Urobilinogen , Urine 0.2 0.2 - 1.0 mg/dL LAB URINALYSIS - AUTOMATED METHOD 04/29/2024 11:05 AM [facility] Bilirubin, Urine Negative Negative LAB URINALYSIS - AUTOMATED METHOD 04/29/2024 11:05 AM [facility] Blood, Urine Negative Negative LAB URINALYSIS - AUTOMATED METHOD 04/29/2024 11:05 AM [facility] RBC, Urine 0.8 0 - 4 /HPF LAB URINALYSIS - AUTOMATED METHOD 04/29/2024 11:05 AM [facility] WBC, Urine 12.6(H) 0 - 4 /HPF LAB URINALYSIS - AUTOMATED METHOD 04/29/2024 11:05 AM [facility] Squamous Epithelial, Urine 10 0 - 60 /LPF LAB URINALYSIS - AUTOMATED METHOD 04/29/2024 11:05 AM [facility] Bacteria, Urine Many(A) Negative /HPF LAB URINALYSIS - AUTOMATED METHOD 04/29/2024 11:05 AM [facility] Hyaline Casts, Urine 0.4 0 - 3 /LPF LAB URINALYSIS - AUTOMATED METHOD 04/29/2024 11:05 AM [facility] Urine Urine specimen from urinary conduit / Unknown Non-blood Collection / Unknown 04/28/2024 12:15 PM EST 04/29/2024 9:53 AM EST Torrey Kwok MD LAB URINE ORDERABLES Final Resul t [facility] [address] [place] [address], documented in this encounter Visit Diagnoses Diagnosis Dysuria documented in this encounter Additional Health Concerns Infection Onset Date Last Indicated Resolved Time Respiratory Rule-Out 07/12/2024 07/11/2024 025 11:25 AM EDT documented as of this encounter Care Teams Cook Soup Relationship Specialty Start Date End Date Torrey Kwok MD [address] [facility] [address] [place] [address] PCP - General Geriatric Medicine 04/25/24 documented as of this encounter
--- OUTSIDE RECORDS SUMMARY | 2025-01-07 14:20 | XMS_ITS | Encounter Summary ---
Author Organization [facility] Address [address] [place] [phone] Care Team Providers Care Order Booker Name Role Phone Torrey Kwok MD Primary Care Provider [phone] Encounter Details Date Type Department Care Team (Late st Contact Info) Description 07/03/2024 Lab Requisition [facility] - Main Lab 299 [facility] [place] [address] Torrey Kwok MD [address] [place], [place] [phone] Chronic kidney disease, stage 3 unspecified (CMS/HCC [...] for add-ons. 07/04/2024 12:01 PM EDT [facility] Comment:Auto resulted. Blood Venous blood specimen / Unknown Venipuncture / Unknown 07/04/2024 7:07 AM EDT 07/04/2024 10:40 AM EDT Torrey Kwok MD LAB BLOOD ORDERABLES Final Resul t [facility] ([facility] [address] [place] [address], documented in this encounter Visit Diagnoses Diagnosis Chronic kidney disease, stage 3 unspecified (CMS/[facility] V24, CMS/[facility] V28) Type 2 diabetes mellitus with hyperglycemia (CMS/[facility] V24, [facility] V28) documented in this encounter Additional Health Concerns Infection Onset Date Last Indicated Resolved Time Respiratory Rule-Out 07/12/2024 07/11/2024 025 11:25 AM EDT documented as of this encounter Care Teams Order Booker Relationship Specialty Start Date End Date Torrey Kwok MD [address] [place] [address] [address] [place] [address] PCP - General Geriatric Medicine 04/25/24 documented as of this encounter
--- OUTSIDE RECORDS SUMMARY | 2025-01-07 14:20 | XMS_ITS | Encounter Summary ---
Author Organization [facility] Address [address] [place] [phone] Care Team Providers Care Supervisor Heat Treating Name Role Phone Torrey Kwok MD Primary Care Provider [phone] Encounter Details Date Type Department Care Team (Late st Contact Info) Description 05/24/2024 Lab Requisition [facility] - Main Lab 299 [facility] [place] [address] Torrey Kwok MD [address] [place], [place] [id number] Type 2 diabetes mellitus with diabetic chronic [...] LAB CHEMISTRY METHOD 05/26/2024 11:56 AM EST [facility] eGFR 46(L) >=60 mL/min/1. 73m2 LAB CHEMISTRY METHOD 05/26/2024 11:56 AM [facility] Comment:Calculation based on the Chronic Kidney Disease Epidemiology Collaboration (CKD-EPI) equation refit without adjustment for race. BUN/Creatinine Ratio 30.2 LAB [...] [facility] [address] [place] [address], * (ABNORMAL) B-type natriuretic peptide (05/26/2024 5:59 AM EST) BNP 320(H) <=100 pcg/mL LAB CHEMISTRY METHOD 05/26/2024 1:35 PM [facility] Blood Venous blood specimen / Unknown Venipuncture / Unknown 05/26/2024 5:59 AM EST 05/26/2024 11:00 AM EST us Torrey Kwok MD LAB BLOOD ORDERABLES Final Resul t [facility] [address] [place] [address], * (ABNORMAL) Basic metabolic panel (05/26/2024 5:59 AM EST) Pathologist [facility] Sodium 141 133 - 145 mmol/L LAB CHEMISTRY METHOD 05/26/2024 11:50 AM [facility] Potassium 3.5 3.5 - 5.5 mmol/L LAB CHEMISTRY METHOD 05/26/2024 11:50 AM [facility] Chloride 101 96 - 110 mmol/L LAB CHEMISTRY METHOD 05/26/2024 11:50 AM [facility] CO2 26 21 - 32 mmol/L LAB CHEMISTRY METHOD 05/26/2024 11:50 AM [facility] Anion Gap 14(H) 3 - 11 LAB CHEMISTRY METHOD 05/26/2024 11:50 AM [facility] Glucose 200(H) 70 - 100 mg/dL LAB CHEMISTRY METHOD 05/26/2024 11:50 AM [facility] BUN 35(H) 5 - 25 mg/dL LAB CHEMISTRY METHOD 05/26/2024 11:50 AM [facility] Creatinine 1.16(H) 0.50 - 1.10 mg/dL LAB CHEMISTRY METHOD 05/26/2024 11:50 AM [facility] eGFR 46(L) >=60 mL/min/1. 73m2 LAB CHEMISTRY METHOD 05/26/2024 11:50 AM EST [facility] Comment:Calculation based on the Chronic Kidney Disease Epidemiology Collaboration (CKD-EPI) equation refit without adjustment for race. BUN/Creatinine Ratio 30.2 LAB CHEMISTRY METHOD 05/26/2024 11:50 AM EST [facility] Calcium 8.9 8.5 - 10.5 mg/dL LAB CHEMISTRY METHOD 05/26/2024 11:50 AM [facility] Blood Venous blood specimen / Unknown Venipuncture / Unknown 05/26/2024 5:59 AM EST 05/26/2024 11:00 AM EST Torrey Kwok MD LAB BLOOD ORDERABLES Final Resul t [facility] [address] [place] [address], * (ABNORMAL) Complete blood count (05/26/2024 5:59 AM EST) WBC 10.4 4.8 - 10.8 K/mcL LAB HEMETOLOGY METHOD 05/26/2024 11:12 AM [facility] RBC 3.30(L) 3.80 - 4.80 M/mcL LAB HEMETOLOGY METHOD 05/26/2024 11:12 AM [facility] Hemoglobin 10.7(L) 11.5 - 16.0 g/dL LAB HEMETOLOGY METHOD 05/26/2024 11:12 AM [facility] Hematocrit 34.0(L) 35.0 - 47.0 % LAB HEMETOLOGY METHOD 05/26/2024 11:12 AM [facility] MCV 102.1(H) 79.0 - 98.0 FL LAB HEMETOLOGY METHOD 05/26/2024 11:12 AM [facility] MCH 32.1(H) 27.0 - 32.0 pcg LAB HEMETOLOGY METHOD 05/26/2024 11:12 AM [facility] MCHC 31.5(L) 32.0 - 37.0 g/dL LAB HEMETOLOGY METHOD 05/26/2024 11:12 AM [facility] RDW 19.8(H) 11.0 - 15.0 % LAB HEMETOLOGY METHOD 05/26/2024 11:12 AM [facility] Platelets 418(H) 130 - 400 K/mcL LAB HEMETOLOGY METHOD 05/26/2024 11:12 AM [facility] MPV 10.0 7.0 - 11.0 FL LAB HEMETOLOGY METHOD 05/26/2024 11:12 AM [facility] NRBC 0.0 <1.0 % LAB HEMETOLOGY METHOD 05/26/2024 11:12 AM [facility] NRBC Absolute 0.00 <0.10 K/mcL LAB HEMETOLOGY METHOD 05/26/2024 11:12 AM [facility] Blood Venous blood specimen / Unknown Venipuncture / Unknown 05/26/2024 5:59 AM EST 05/26/2024 11:00 AM EST us Torrey Kwok MD LAB BLOOD ORDERABLES Final Resul t [facility] [address] [place] [address], documented in this encounter Visit Diagnoses Diagnosis 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, [facility] V28) Essential (primary) hypertension Unspecified essential hypertension Heart failure, unspecified (CMS/HCC V24, [facility] V28) Heart failure, unspecified 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
--- OUTSIDE RECORDS SUMMARY | 2025-01-07 14:20 | XMS_ITS ---
Author Name [facility] Organization Unknown History of Medication Use Medication Directions Dispensed Refills Start Date End Date Stat us metoprolol tartrate comp leted simvastatin completed Allergies Allergen Reaction Severity Comment Documented Date Source Statu s CODEINE [facility] LATANOPROST [facility] SULFA (SULFONAMIDE ANTIBIOTICS) [facility] Encounters Encounter Type Encounter Reason Primary Diagnosis Location Date Ambulatory [facility] 11/2024 Care Team Organization Name Specialty Phone Email Start Date End Da te [facility] 02/23/2024 [facility] 02/22/2024
--- OUTSIDE RECORDS SUMMARY | 2025-01-07 14:20 | XMS_ITS | Encounter Summary ---
Author Organization [facility] Address [address] [place] [address] Care Team Providers Care Resource Forester Name Role Phone Torrey Kwok MD Primary Care Provider [phone] Encounter Details Date Type Department Care Team (Late st Contact Info) Description 12/19/2024 Lab Requisition [facility] - Main Lab 299 [facility] [place] [address] Torrey Kwok MD [address] [place], [place] [id number] 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, CMS/HCC V28); Heart failure, unspecified (CMS/HCC V24, CMS/HCC V28); 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 V24, CMS/HCC V28); Essential (primary) hypertension [...] Associated Diagnosis Comments COMPLETE BLOOD COUNT Routine 12/22/2024 6:38 AM EDT 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, CMS/HCC V28) Heart failure, unspecified (CMS/HCC V24, CMS/HCC V28) 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 V24, CMS/HCC V28) Essential (primary) hypertension HEMOGLOBIN A1C Routine 12/22/2024 6:38 AM EDT Type 2 diabetes mellitus with diabetic chronic kidney disease ([facility] V24, [facility] V28) Heart failure, unspecified ([facility] V24, [facility] V28) 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 ([facility] V24, CMS/[facility] V28) Essential (primary) hypertension BASIC METABOLIC PANEL Routine 12/22/2024 6:38 AM EDT Type 2 diabetes mellitus with diabetic chronic kidney disease ([facility] V24, [facility] V28) Heart failure, unspecified ([facility] V24, [facility] V28) 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 217 mg/dL LAB CHEMISTRY METHOD 12/22/2024 1:38 PM EDT [facility] Blood Venous blood specimen / Unknown Venipuncture / Unknown 12/22/2024 6:38 AM EDT 12/22/2024 11:02 AM EDT us Torrey Kwok MD LAB BLOOD ORDERABLES Final Resul t [facility] [address] [place] [address], * (ABNORMAL) Complete blood count (12/22/2024 6:38 AM EDT) Pathologist [facility] WBC 6.0 4.8 - 10.8 K/mcL LAB HEMETOLOGY METHOD 12/22/2024 11:36 AM EDT [facility] RBC 3.50(L) 3.80 - 4.80 M/mcL LAB HEMETOLOGY METHOD 12/22/2024 11:36 AM [facility] Hemoglobin 10.9(L) 11.5 - 16.0 g/dL LAB HEMETOLOGY METHOD 12/22/2024 11:36 AM [facility] Hematocrit 34.2(L) 35.0 - 47.0 % LAB HEMETOLOGY METHOD 12/22/2024 11:36 AM [facility] MCV 98.0 79.0 - 98.0 FL LAB HEMETOLOGY METHOD 12/22/2024 11:36 AM [facility] MCH 31.2 27.0 - 32.0 pcg LAB HEMETOLOGY METHOD 12/22/2024 11:36 AM [facility] MCHC 31.9(L) 32.0 - 37.0 g/dL LAB HEMETOLOGY METHOD 12/22/2024 11:36 AM [facility] RDW 15.8(H) 11.0 - 15.0 % LAB HEMETOLOGY METHOD 12/22/2024 11:36 AM [facility] Platelets 259 130 - 400 K/mcL LAB HEMETOLOGY METHOD 12/22/2024 11:36 AM [facility] MPV 10.9 7.0 - 11.0 FL LAB HEMETOLOGY METHOD 12/22/2024 11:36 AM [facility] NRBC 0.0 <1.0 % LAB HEMETOLOGY METHOD 12/22/2024 11:36 AM [facility] NRBC Absolute 0.00 <0.10 K/mcL LAB HEMETOLOGY METHOD 12/22/2024 11:36 AM [facility] Blood Venous blood specimen / Unknown Venipuncture / Unknown 12/22/2024 6:38 AM EDT 12/22/2024 11:02 AM EDT us Torrey Kwok MD LAB BLOOD ORDERABLES Final Resul t [facility] [address] [place] [address], * (ABNORMAL) Basic metabolic panel (12/22/2024 6:38 AM EDT) Sodium 137 133 - 145 mmol/L LAB CHEMISTRY METHOD 12/22/2024 2:47 PM [facility] Potassium 4.0 3.5 - 5.5 mmol/L LAB CHEMISTRY METHOD 12/22/2024 2:47 PM [facility] Chloride 104 96 - 110 mmol/L LAB CHEMISTRY METHOD 12/22/2024 2:47 PM [facility] CO2 22 21 - 32 mmol/L LAB CHEMISTRY METHOD 12/22/2024 2:47 PM [facility] Anion Gap 11 3 - 11 LAB CHEMISTRY METHOD 12/22/2024 2:47 PM [facility] Glucose 187(H) 70 - 100 mg/dL LAB CHEMISTRY METHOD 12/22/2024 2:47 PM [facility] BUN 38(H) 5 - 25 mg/dL LAB CHEMISTRY METHOD 12/22/2024 2:47 PM [facility] Creatinine 1.17(H) 0.50 - 1.10 mg/dL LAB CHEMISTRY METHOD 12/22/2024 2:47 PM [facility] eGFR 45(L) >=60 mL/min/1. 73m2 LAB CHEMISTRY METHOD 12/22/2024 2:47 PM [facility] Comment:Calculation based on the Chronic Kidney Disease Epidemiology Collaboration (CKD-EPI) equation refit without adjustment for race. BUN/Creatinine Ratio 32.5 LAB CHEMISTRY METHOD 12/22/2024 2:47 PM EDT [facility] Calcium 8.7 8.5 - 10.5 mg/dL LAB CHEMISTRY METHOD 12/22/2024 2:47 PM EDT [facility] Blood Venous blood specimen / Unknown Venipuncture / Unknown 12/22/2024 6:38 AM EDT 12/22/2024 11:03 AM EDT Torrey Kwok MD LAB BLOOD ORDERABLES Final Resul t [facility] [address] [place] [address], documented in this encounter Visit Diagnoses Diagnosis Type 2 diabetes mellitus with diabetic chronic kidney disease ([facility] V24, [facility] V28) Heart failure, unspecified (CMS/[facility] V24, [facility] V28) Heart failure, unspecified 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
--- OUTSIDE RECORDS SUMMARY | 2025-01-07 14:20 | XMS_ITS | Encounter Summary ---
Author Organization [facility] Address [address] [place] [address] Care Team Providers Care Arborist Representative Name Role Phone Torrey Kwok MD Primary Care Provider [phone] Encounter Details Date Type Department Care Team (Late st Contact Info) Description 01/02/2025 Lab Requisition [facility] - Main Lab 299 [facility] [place] [address] Torrey Kwok MD [address] [place], [place] [phone] Type 2 diabetes mellitus without complications (CMS/HCC [...] V28) documented in this encounter Care Teams Arborist Representative Relationship Specialty Start Date End Date Torrey Kwok MD [address] [place], [place] [phone] PCP - General Geriatric Medicine 04/25/24 documented as of this encounter
--- OUTSIDE RECORDS SUMMARY | 2025-01-07 14:20 | XMS_ITS | Encounter Summary ---
Author Organization [facility] Address [address] [place] [address] Care Team Providers Care Outreach Educator Name Role Phone Torrey Kwok MD Primary Care Provider [phone] Encounter Details Date Type Department Care Team (Late st Contact Info) Description 12/26/2024 Lab Requisition [facility] - Main Lab 299 [facility] [place] [address] Torrey Kwok MD [address] [place], [place] [phone] Essential (primary) hypertension; Heart failure, unspecified (CMS/HCC V24, CMS/HCC V28); 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, CMS/HCC V28); Type 2 diabetes [...] Associated Diagnosis Comments COMPLETE BLOOD COUNT Routine 12/29/2024 9:16 AM EDT Essential (primary) hypertension Heart failure, unspecified (CMS/HCC V24, CMS/HCC V28) 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, CMS/HCC V28) 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 V24, CMS/HCC V28) BASIC METABOLIC PANEL Routine 12/29/2024 9:11 AM EDT Essential (primary) hypertension Heart failure, unspecified ([facility] V24, [facility] V28) Type 2 diabetes mellitus with diabetic chronic kidney disease ([facility] V24, [facility] V28) 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 ([facility] V24, [facility] V28) documented in this encounter Results * (ABNORMAL) Complete blood count (12/29/2024 9:16 AM EDT) [facility] WBC 6.9 4.8 - 10.8 K/mcL LAB HEMETOLOGY METHOD 12/29/2024 11:[address] [facility] RBC 3.50(L) 3.80 - 4.80 M/mcL LAB HEMETOLOGY METHOD 12/29/2024 11:[address] [facility] Hemoglobin 11.2(L) 11.5 - 16.0 g/dL LAB HEMETOLOGY METHOD 12/29/2024 11:[address] [facility] Hematocrit 34.3(L) 35.0 - 47.0 % LAB HEMETOLOGY METHOD 12/29/2024 11:[address] [facility] MCV 96.9 79.0 - 98.0 FL LAB HEMETOLOGY METHOD 12/29/2024 11:[address] [facility] MCH 31.6 27.0 - 32.0 pcg LAB HEMETOLOGY METHOD 12/29/2024 11:[address] [facility] MCHC 32.7 32.0 - 37.0 g/dL LAB HEMETOLOGY METHOD 12/29/2024 11:[address] [facility] RDW 15.4(H) 11.0 - 15.0 % LAB HEMETOLOGY METHOD 12/29/2024 11:[address] [facility] Platelets 236 130 - 400 K/mcL LAB HEMETOLOGY METHOD 12/29/2024 11:02 AM EDT [facility] MPV 10.5 7.0 - 11.0 FL LAB HEMETOLOGY METHOD 12/29/2024 11:02 AM EDT [facility] NRBC 0.0 <1.0 % LAB HEMETOLOGY METHOD 12/29/2024 11:[address] [facility] NRBC Absolute 0.00 <0.10 K/mcL LAB HEMETOLOGY METHOD 12/29/2024 11:02 AM T [facility] Blood Venous blood specimen / Unknown Venipuncture / Unknown 12/29/2024 9:16 AM EDT 12/29/2024 10:37 AM EDT us Torrey Kwok MD LAB BLOOD ORDERABLES Final Resul t [facility] [address] [place] [address], * (ABNORMAL) Basic metabolic panel (12/29/2024 9:11 AM EDT) Sodium 135 133 - 145 mmol/L LAB CHEMISTRY METHOD 12/29/2024 11:[address] [facility] Potassium 4.0 3.5 - 5.5 mmol/L LAB CHEMISTRY METHOD 12/29/2024 11:[address] [facility] Chloride 98 96 - 110 mmol/L LAB CHEMISTRY METHOD 12/29/2024 11:[address] [facility] CO2 30 21 - 32 mmol/L LAB CHEMISTRY METHOD 12/29/2024 11:[address] [facility] Anion Gap 7 3 - 11 LAB CHEMISTRY METHOD 12/29/2024 11:[address] [facility] Glucose 283(H) 70 - 100 mg/dL LAB CHEMISTRY METHOD 12/29/2024 11:[address] [facility] BUN 38(H) 5 - 25 mg/dL LAB CHEMISTRY METHOD 12/29/2024 11:38 AM EDT [facility] Creatinine 1.33(H) 0.50 - 1.10 mg/dL LAB CHEMISTRY METHOD 12/29/2024 11:38 AM T [facility] eGFR 39(L) >=60 mL/min/1. 73m2 LAB CHEMISTRY METHOD 12/29/2024 11:38 AM EDT [facility] Comment:Calculation based on the Chronic Kidney Disease Epidemiology Collaboration (CKD-EPI) equation refit without adjustment for race. BUN/Creatinine Ratio 28.6 LAB CHEMISTRY METHOD 12/29/2024 11:38 AM T [facility] Calcium 8.9 8.5 - 10.5 mg/dL LAB CHEMISTRY METHOD 12/29/2024 11:[address] [facility] Blood Venous blood specimen / Unknown Venipuncture / Unknown 12/29/2024 9:11 AM EDT 12/29/2024 10:42 AM EDT us Torrey Kwok MD LAB BLOOD ORDERABLES Final Resul t [facility] [address] [place] [address], documented in this encounter Visit Diagnoses Diagnosis Essential (primary) hypertension Unspecified essential hypertension Heart failure, unspecified ([facility] V24, [facility] V28) Heart failure, unspecified Type 2 diabetes mellitus with diabetic chronic kidney disease ([facility]/HCC V24, [facility] V28) 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
--- OUTSIDE RECORDS SUMMARY | 2025-01-07 14:20 | XMS_ITS | Encounter Summary ---
Author Organization [facility] Address [address] [place] [phone] Care Team Providers Care Transmitter Engineer In Charge Name Role Phone Torrey Kwok MD Primary Care Provider [phone] Encounter Details Date Type Department Care Team (Late st Contact Info) Description 01/03/2025 Lab Requisition [facility] - Main Lab 299 [facility] [email or web address] [address] Torrey wKok MD [address] [place], [place] [id number] Type 2 diabetes mellitus with diabetic chronic [...] V28) documented in this encounter Care Teams Transmitter Engineer In Charge Relationship Specialty Start Date End Date Torrey Kwok MD [address] [place] [address] PCP - General Geriatric Medicine 04/25/24 documented as of this encounter
--- OUTSIDE RECORDS SUMMARY | 2025-01-07 14:20 | XMS_ITS | Encounter Summary ---
Author Organization [facility] Address [address] [place] [phone] Care Team Providers Care Personal Service Representative Name Role Phone Torrey Kwok MD Primary Care Provider [phone] Encounter Details Date Type Department Care Team (Late st Contact Info) Description 12/18/2024 Lab Requisition [facility] - Main Lab 299 [facility] [place] [address] Torrey Kwok MD [address] [place], [place] [phone] Type 2 diabetes mellitus without complications (CMS/HCC V24, CMS/[facility] V28) Social History Tobacco Use Types Packs/Day [...] Date/Time Associated Diagnosis Comments HEMOGLOBIN A1C Routine 12/19/2024 6:26 AM EDT Type 2 diabetes mellitus without complications (CMS/HCC V24, CMS/[facility] V28) documented in this encounter Results * (ABNORMAL) Hemoglobin A1c (12/19/2024 6:26 AM EDT) Hemoglobin A1C 9.1(H) <6.5 % LAB CHEMISTRY METHOD 12/19/2024 12:42 PM T [facility] Mean Bld Glu Estim. 214 mg/dL LAB CHEMISTRY METHOD 12/19/2024 12:42 PM T [facility] Blood Venous blood specimen / Unknown Venipuncture / Unknown 12/19/2024 6:26 AM EDT 12/19/2024 10:41 AM EDT Torrey Kwok MD LAB BLOOD ORDERABLES Final Resul t [facility] [address] [place] [address], documented in this encounter Visit Diagnoses Diagnosis Type 2 diabetes mellitus without complications (CMS/HCC V24, CMS/HCC V28) documented in this encounter Care Teams Personal Service Representative Relationship Specialty Start Date End Date Torrey Kwok MD [address] [place] [address] [address] [place] [address] PCP - General Geriatric Medicine 04/25/24 documented as of this encounter
--- OUTSIDE RECORDS SUMMARY | 2025-01-07 14:20 | XMS_ITS | Encounter Summary ---
Author Organization [facility] Address [address] [place] [address] Care Team Providers Care Construction Project Mgr Name Role Phone Torrey Kwok MD Primary Care Provider [phone] Encounter Details Date Type Department Care Team (Late st Contact Info) Description 06/20/2024 Lab Requisition [facility] - Main Lab 299 [facility] [place] [address] Torrey Kwok MD [address] [place], [place] [phone] Essential (primary) hypertension; Type 2 diabetes mellitus [...] LAB CHEMISTRY METHOD 06/20/2024 11:38 AM EDT [facility] Potassium 4.1 3.5 - 5.5 mmol/L LAB CHEMISTRY METHOD 06/20/2024 11:38 AM [facility] Chloride 104 96 - 110 mmol/L LAB CHEMISTRY METHOD 06/20/2024 11:38 AM [facility] CO2 29 21 - 32 mmol/L LAB CHEMISTRY METHOD 06/20/2024 11:38 AM [facility] Anion Gap 5 3 - 11 LAB CHEMISTRY METHOD 06/20/2024 11:38 AM [facility] Glucose 53(L) 70 - 100 mg/dL LAB CHEMISTRY METHOD 06/20/2024 11:38 AM [facility] BUN 39(H) 5 - 25 mg/dL LAB CHEMISTRY METHOD 06/20/2024 11:38 AM [facility] Creatinine 0.97 0.50 - 1.10 mg/dL LAB CHEMISTRY METHOD 06/20/2024 11:38 AM [facility] eGFR 57(L) >=60 mL/min/1. 73m2 LAB CHEMISTRY METHOD 06/20/2024 11:38 AM [facility] Comment:Calculation based on the Chronic Kidney Disease Epidemiology Collaboration (CKD-EPI) equation refit without adjustment for race. BUN/Creatinine Ratio 40.2 LAB CHEMISTRY METHOD 06/20/2024 11:38 AM [facility] Calcium 9.2 8.5 - 10.5 mg/dL LAB CHEMISTRY METHOD 06/20/2024 11:38 AM [facility] Blood Venous blood specimen / Unknown Venipuncture / Unknown 06/20/2024 6:10 AM EDT 06/20/2024 10:40 AM EDT us Torrey Kwok MD LAB BLOOD ORDERABLES Final Resul t [facility] [address] [place], [place] [address] [phone] * (ABNORMAL) Complete blood count (06/20/2024 6:10 AM EDT) [facility] Signature WBC 6.5 4.8 - 10.8 K/mcL LAB HEMETOLOGY METHOD 06/20/2024 11:08 AM [facility] RBC 3.70(L) 3.80 - 4.80 M/mcL LAB HEMETOLOGY METHOD 06/20/2024 11:08 AM [facility] Hemoglobin 12.0 11.5 - 16.0 g/dL LAB HEMETOLOGY METHOD 06/20/2024 11:08 AM [facility] Hematocrit 37.1 35.0 - 47.0 % LAB HEMETOLOGY METHOD 06/20/2024 11:08 AM [facility] MCV 100.5(H) 79.0 - 98.0 FL LAB HEMETOLOGY METHOD 06/20/2024 11:08 AM [facility] MCH 32.5(H) 27.0 - 32.0 pcg LAB HEMETOLOGY METHOD 06/20/2024 11:08 AM [facility] MCHC 32.3 32.0 - 37.0 g/dL LAB HEMETOLOGY METHOD 06/20/2024 11:08 AM [facility] RDW 18.3(H) 11.0 - 15.0 % LAB HEMETOLOGY METHOD 06/20/2024 11:08 AM [facility] Platelets 313 130 - 400 K/mcL LAB HEMETOLOGY METHOD 06/20/2024 11:08 AM [facility] MPV 10.8 7.0 - 11.0 FL LAB HEMETOLOGY METHOD 06/20/2024 11:08 AM [facility] NRBC 0.0 <1.0 % LAB HEMETOLOGY METHOD 06/20/2024 11:08 AM EDT [facility] NRBC Absolute 0.00 <0.10 K/mcL LAB HEMETOLOGY METHOD 06/20/2024 11:08 AM EDT [facility] Blood Venous blood specimen / Unknown Venipuncture / Unknown 06/20/2024 6:10 AM EDT 06/20/2024 10:40 AM EDT us Torrey Kwok MD LAB BLOOD ORDERABLES Final Resul t [facility] [address] [place] [address], documented in this encounter Visit Diagnoses Diagnosis Essential (primary) hypertension Unspecified essential hypertension Type 2 diabetes mellitus without complications (CMS/HCC V24, CMS/HCC V28) documented in this encounter Additional Health Concerns Infection Onset Date Last Indicated Resolved Time Respiratory Rule-Out 07/12/2024 07/11/2024 025 11:25 AM EDT documented as of this encounter Care Teams Construction Project Mgr Relationship Specialty Start Date End Date Torrey Kwok MD [address] [place] [address] [address] [place] [address] PCP - General Geriatric Medicine 04/25/24 documented as of this encounter
--- OUTSIDE RECORDS SUMMARY | 2025-01-07 14:20 | XMS_ITS | Encounter Summary ---
Author Organization [facility] Address [address] [place] [phone] Care Team Providers Care Senior Partner Name Role Phone Torrey Kwok MD Primary Care Provider [phone] Encounter Details Date Type Department Care Team (Late st Contact Info) Description 07/05/[address] 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 ([facility]) documented in this encounter Results * (ABNORMAL) Basic metabolic panel (07/07/2024 5:35 AM EDT) Sodium 142 133 - 145 mmol/L LAB CHEMISTRY METHOD 07/07/2024 12:00 PM [facility] Potassium 4.0 3.5 - 5.5 mmol/L LAB CHEMISTRY METHOD 07/07/2024 12:00 PM [facility] Chloride 107 96 - 110 mmol/L LAB CHEMISTRY METHOD 07/07/2024 12:00 PM [facility] CO2 27 21 - 32 mmol/L LAB CHEMISTRY METHOD 07/07/2024 12:00 PM [facility] Anion Gap 8 3 - 11 LAB CHEMISTRY METHOD 07/07/2024 12:00 PM [facility] Glucose 86 70 - 100 mg/dL LAB CHEMISTRY METHOD 07/07/2024 12:00 PM [facility] BUN 37(H) 5 - 25 mg/dL LAB CHEMISTRY METHOD 07/07/2024 12:00 PM [facility] Creatinine 1.13(H) 0.50 - 1.10 mg/dL LAB CHEMISTRY METHOD 07/07/2024 12:00 PM [facility] eGFR 47(L) >=60 mL/min/1. 73m2 LAB CHEMISTRY METHOD 07/07/2024 12:00 PM [facility] Comment:Calculation based on the Chronic Kidney Disease Epidemiology Collaboration (CKD-EPI) equation refit without adjustment for race. BUN/Creatinine Ratio 32.7 LAB CHEMISTRY METHOD 07/07/2024 12:00 PM [facility] Calcium 8.8 8.5 - 10.5 mg/dL LAB CHEMISTRY METHOD 07/07/2024 12:00 PM [facility] Blood Venous blood specimen / Unknown Venipuncture / Unknown 07/07/2024 5:35 AM EDT 07/07/2024 10:37 AM EDT Torrey Kwok MD LAB BLOOD ORDERABLES Final Resul t [facility] [address] [place] [address], * (ABNORMAL) Complete blood count (07/07/2024 5:35 AM EDT) WBC 6.3 4.8 - 10.8 K/mcL LAB HEMETOLOGY METHOD 07/07/2024 11:43 AM EDT [facility] RBC 2.90(L) 3.80 - 4.80 M/mcL LAB HEMETOLOGY METHOD 07/07/2024 11:43 AM EDT [facility] Hemoglobin 9.5(L) 11.5 - 16.0 g/dL LAB HEMETOLOGY METHOD 07/07/2024 11:43 AM EDT [facility] Hematocrit 30.2(L) 35.0 - 47.0 % LAB HEMETOLOGY METHOD 07/07/2024 11:43 AM [facility] MCV 103.4(H) 79.0 - 98.0 FL LAB HEMETOLOGY METHOD 07/07/2024 11:43 AM EDT [facility] MCH 32.5(H) 27.0 - 32.0 pcg LAB HEMETOLOGY METHOD 07/07/2024 11:43 AM EDT [facility] MCHC 31.5(L) 32.0 - 37.0 g/dL LAB HEMETOLOGY METHOD 07/07/2024 11:43 AM [facility] RDW 18.3(H) 11.0 - 15.0 % LAB HEMETOLOGY METHOD 07/07/2024 11:43 AM EDT [facility] Platelets 312 130 - 400 K/mcL LAB HEMETOLOGY METHOD 07/07/2024 11:43 AM EDT [facility] MPV 10.8 7.0 - 11.0 FL LAB HEMETOLOGY METHOD 07/07/2024 11:43 AM EDT [facility] NRBC 0.0 <1.0 % LAB HEMETOLOGY METHOD 07/07/2024 11:43 AM EDT [facility] NRBC Absolute 0.00 <0.10 K/mcL LAB HEMETOLOGY METHOD 07/07/2024 11:43 AM EDT [facility] Blood Venous blood specimen / Unknown Venipuncture / Unknown 07/07/2024 5:35 AM EDT 07/07/2024 10:37 AM EDT Torrey Kwok MD LAB BLOOD ORDERABLES Final Resul t [facility] [address] [place] [address], documented in this encounter Visit Diagnoses Diagnosis 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, [facility] V28) Essential (primary) hypertension Unspecified essential hypertension Heart failure, unspecified ([facility] V24, [facility] V28) Heart failure, unspecified 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
--- OUTSIDE RECORDS SUMMARY | 2025-01-07 14:20 | XMS_ITS | Encounter Summary ---
Author Organization [facility] Address [address] [place] [phone] Care Team Providers Care Fish Roe Technician Name Role Phone Torrey Kwok MD Primary Care Provider [phone] Encounter Details Date Type Department Care Team (Late st Contact Info) Description 06/21/2024 Lab Requisition [facility] - Main Lab 299 [facility] [place] [address] Torrey Kwok MD [address] [place], [place] [id number] Type 2 diabetes mellitus with diabetic chronic [...] (CMS/HCC) Essential (primary) hypertension Heart failure, unspecified ([facility]) documented in this encounter Results * (ABNORMAL) Thyroid stimulating hormone (06/23/2024 5:47 AM EDT) Pathologist [facility] TSH 21.48(H) 0.40 - 4.00 mcIU/mL LAB CHEMISTRY METHOD 06/23/2024 1:[address] [facility] Blood Venous blood specimen / Unknown Venipuncture / Unknown 06/23/2024 5:47 AM EDT 06/23/2024 11:30 AM EDT Torrey Kwok MD LAB BLOOD ORDERABLES Final Resul t [facility] [address] [place] [address], * (ABNORMAL) Basic metabolic panel (06/23/2024 5:47 AM EDT) Pathologist [facility] Sodium 137 133 - 145 mmol/L LAB CHEMISTRY METHOD 06/23/2024 1:[address] [facility] Potassium 3.9 3.5 - 5.5 mmol/L LAB CHEMISTRY METHOD 06/23/2024 1:[address] [facility] Chloride 102 96 - 110 mmol/L LAB CHEMISTRY METHOD 06/23/2024 1:[address] [facility] CO2 30 21 - 32 mmol/L LAB CHEMISTRY METHOD 06/23/2024 1:[address] [facility] Anion Gap 5 3 - 11 LAB CHEMISTRY METHOD 06/23/2024 1:47 PM [facility] Glucose 70 70 - 100 mg/dL LAB CHEMISTRY METHOD 06/23/2024 1:[address] [facility] BUN 33(H) 5 - 25 mg/dL LAB CHEMISTRY METHOD 06/23/2024 1:[address] [facility] Creatinine 0.86 0.50 - 1.10 mg/dL LAB CHEMISTRY METHOD 06/23/2024 1:[address] [facility] eGFR 65 >=60 mL/min/1. 73m2 LAB CHEMISTRY METHOD 06/23/2024 1:[address] [facility] Comment:Calculation based on the Chronic Kidney Disease Epidemiology Collaboration (CKD-EPI) equation refit without adjustment for race. BUN/Creatinine Ratio 38.4 LAB CHEMISTRY METHOD 06/23/2024 1:[address] [facility] Calcium 8.7 8.5 - 10.5 mg/dL LAB CHEMISTRY METHOD 06/23/2024 1:[address] [facility] Blood Venous blood specimen / Unknown Venipuncture / Unknown 06/23/2024 5:47 AM EDT 06/23/2024 11:30 AM EDT Torrey Kwok MD LAB BLOOD ORDERABLES Final Resul t [facility] [address] [place] [address], * (ABNORMAL) Complete blood count (06/23/2024 5:47 AM EDT) WBC 5.9 4.8 - 10.8 K/mcL LAB HEMETOLOGY METHOD 06/23/2024 12:[address] [facility] RBC 3.00(L) 3.80 - 4.80 M/mcL LAB HEMETOLOGY METHOD 06/23/2024 12:[address] [facility] Hemoglobin 9.6(L) 11.5 - 16.0 g/dL LAB HEMETOLOGY METHOD 06/23/2024 12:[address] [facility] Hematocrit 31.2(L) 35.0 - 47.0 % LAB HEMETOLOGY METHOD 06/23/2024 12:[address] [facility] MCV 103.3(H) 79.0 - 98.0 FL LAB HEMETOLOGY METHOD 06/23/2024 12:[address] [facility] MCH 31.8 27.0 - 32.0 pcg LAB HEMETOLOGY METHOD 06/23/2024 12:[address] [facility] MCHC 30.8(L) 32.0 - 37.0 g/dL LAB HEMETOLOGY METHOD 06/23/2024 12:[address] [facility] RDW 18.7(H) 11.0 - 15.0 % LAB HEMETOLOGY METHOD 06/23/2024 12:[address] [facility] Platelets 244 130 - 400 K/mcL LAB HEMETOLOGY METHOD 06/23/2024 12:[address] [facility] MPV 11.0 7.0 - 11.0 FL LAB HEMETOLOGY METHOD 06/23/2024 12:[address] [facility] NRBC 0.0 <1.0 % LAB HEMETOLOGY METHOD 06/23/2024 12:[address] [facility] NRBC Absolute 0.00 <0.10 K/mcL LAB HEMETOLOGY METHOD 06/23/2024 12:[address] [facility] Blood Venous blood specimen / Unknown Venipuncture / Unknown 06/23/2024 5:47 AM EDT 06/23/2024 11:30 AM EDT us Torrey Kwok MD LAB BLOOD ORDERABLES Final Resul t [facility] [address] [place] [address], documented in this encounter Visit Diagnoses Diagnosis 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, CMS/HCC V28) Essential (primary) hypertension Unspecified essential hypertension Heart failure, unspecified ([facility] V24, [facility] V28) Heart failure, unspecified documented in this encounter Additional Health Concerns Infection Onset Date Last Indicated Resolved Time Respiratory Rule-Out 07/12/2024 07/11/2024 025 11:25 AM EDT documented as of this encounter Care Teams Fish Roe Technician Relationship Specialty Start Date End Date Torrey Kwok MD [address] [place] [address] [address] [place] [address] PCP - General Geriatric Medicine 04/25/24 documented as of this encounter
--- OUTSIDE RECORDS SUMMARY | 2025-01-07 14:20 | XMS_ITS | Encounter Summary ---
Author Organization [facility] Address [address] [place] [phone] Care Team Providers Care Public Health Service Officer Name Role Phone Torrey Kwok MD Primary Care Provider [phone] Encounter Details Date Type Department Care Team (Late st Contact Info) Description 06/07/2024 Lab Requisition [facility] - Main Lab 299 [facility] [place] [address] Torrey Kwok MD [address] [place], [place] [phone] Type 2 diabetes mellitus with diabetic chronic [...] (CMS/HCC) Essential (primary) hypertension Heart failure, unspecified (CMS/[facility]) 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 ([facility]) documented in this encounter Results * (ABNORMAL) Basic metabolic panel (06/09/2024 6:45 AM EST) Sodium 137 133 - 145 mmol/L LAB CHEMISTRY METHOD 06/09/2024 1:51 PM [facility] Potassium 3.8 3.5 - 5.5 mmol/L LAB CHEMISTRY METHOD 06/09/2024 1:51 PM [facility] Chloride 99 96 - 110 mmol/L LAB CHEMISTRY METHOD 06/09/2024 1:51 PM [facility] CO2 28 21 - 32 mmol/L LAB CHEMISTRY METHOD 06/09/2024 1:51 PM [facility] Anion Gap 10 3 - 11 LAB CHEMISTRY METHOD 06/09/2024 1:51 PM [facility] Glucose 135(H) 70 - 100 mg/dL LAB CHEMISTRY METHOD 06/09/2024 1:51 PM [facility] BUN 41(H) 5 - 25 mg/dL LAB CHEMISTRY METHOD 06/09/2024 1:51 PM [facility] Creatinine 0.99 0.50 - 1.10 mg/dL LAB CHEMISTRY METHOD 06/09/2024 1:51 PM [facility] eGFR 55(L) >=60 mL/min/1. 73m2 LAB CHEMISTRY METHOD 06/09/2024 1:51 PM [facility] Comment:Calculation based on the Chronic Kidney Disease Epidemiology Collaboration (CKD-EPI) equation refit without adjustment for race. BUN/Creatinine Ratio 41.4 LAB CHEMISTRY METHOD 06/09/2024 1:51 PM [facility] Calcium 9.2 8.5 - 10.5 mg/dL LAB CHEMISTRY METHOD 06/09/2024 1:51 PM [facility] Blood Venous blood specimen / Unknown Venipuncture / Unknown 06/09/2024 6:45 AM EST 06/09/2024 11:22 AM EST us Torrey Kwok MD LAB BLOOD ORDERABLES Final Resul t [facility] [address] [place] [address], * (ABNORMAL) Complete blood count (06/09/2024 6:45 AM EST) [facility] WBC 9.1 4.8 - 10.8 K/mcL LAB HEMETOLOGY METHOD 06/09/2024 1:30 PM [facility] RBC 3.50(L) 3.80 - 4.80 M/mcL LAB HEMETOLOGY METHOD 06/09/2024 1:30 PM [facility] Hemoglobin 11.2(L) 11.5 - 16.0 g/dL LAB HEMETOLOGY METHOD 06/09/2024 1:30 PM [facility] Hematocrit 35.6 35.0 - 47.0 % LAB HEMETOLOGY METHOD 06/09/2024 1:30 PM [facility] MCV 101.1(H) 79.0 - 98.0 FL LAB HEMETOLOGY METHOD 06/09/2024 1:30 PM [facility] MCH 31.8 27.0 - 32.0 pcg LAB HEMETOLOGY METHOD 06/09/2024 1:30 PM [facility] MCHC 31.5(L) 32.0 - 37.0 g/dL LAB HEMETOLOGY METHOD 06/09/2024 1:30 PM [facility] RDW 18.6(H) 11.0 - 15.0 % LAB HEMETOLOGY METHOD 06/09/2024 1:30 PM [facility] Platelets 346 130 - 400 K/mcL LAB HEMETOLOGY METHOD 06/09/2024 1:30 PM EST [facility] MPV 10.5 7.0 - 11.0 FL LAB HEMETOLOGY METHOD 06/09/2024 1:30 PM EST [facility] NRBC 0.0 <1.0 % LAB HEMETOLOGY METHOD 06/09/2024 1:30 PM EST [facility] NRBC Absolute 0.00 <0.10 K/mcL LAB HEMETOLOGY METHOD 06/09/2024 1:30 PM EST [facility] Blood Venous blood specimen / Unknown Venipuncture / Unknown 06/09/2024 6:45 AM EST 06/09/2024 11:22 AM EST Torrey Kwok MD LAB BLOOD ORDERABLES Final Resul t [facility] [address] [place] [address], documented in this encounter Visit Diagnoses Diagnosis [...] documented as of this encounter Care Teams Public Health Service Officer Relationship Specialty Start Date End Date Torrey Kwok MD [address] [facility] [address] [place] [address] PCP - General Geriatric Medicine 04/25/24 documented as of this encounter
--- OUTSIDE RECORDS SUMMARY | 2025-01-07 14:20 | XMS_ITS | Encounter Summary ---
Author Organization [facility] Address [address] [place] [phone] Care Team Providers Care Brass Pourer Name Role Phone Torrey Kwok MD Primary Care Provider [phone] Encounter Details Date Type Department Care Team (Late st Contact Info) Description 06/14/[address] 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 ([facility]) documented in this encounter Results * (ABNORMAL) Basic metabolic panel (06/16/2024 5:17 AM EDT) Sodium 139 133 - 145 mmol/L LAB CHEMISTRY METHOD 06/16/2024 11:54 AM [facility] Potassium 4.2 3.5 - 5.5 mmol/L LAB CHEMISTRY METHOD 06/16/2024 11:54 AM [facility] Chloride 103 96 - 110 mmol/L LAB CHEMISTRY METHOD 06/16/2024 11:54 AM [facility] CO2 26 21 - 32 mmol/L LAB CHEMISTRY METHOD 06/16/2024 11:54 AM [facility] Anion Gap 10 3 - 11 LAB CHEMISTRY METHOD 06/16/2024 11:54 AM [facility] Glucose 319(H) 70 - 100 mg/dL LAB CHEMISTRY METHOD 06/16/2024 11:54 AM [facility] BUN 26(H) 5 - 25 mg/dL LAB CHEMISTRY METHOD 06/16/2024 11:54 AM [facility] Creatinine 0.97 0.50 - 1.10 mg/dL LAB CHEMISTRY METHOD 06/16/2024 11:54 AM [facility] eGFR 57(L) >=60 mL/min/1. 73m2 LAB CHEMISTRY METHOD 06/16/2024 11:54 AM [facility] Comment:Calculation based on the Chronic Kidney Disease Epidemiology Collaboration (CKD-EPI) equation refit without adjustment for race. BUN/Creatinine Ratio 26.8 LAB CHEMISTRY METHOD 06/16/2024 11:54 AM [facility] Calcium 8.8 8.5 - 10.5 mg/dL LAB CHEMISTRY METHOD 06/16/2024 11:54 AM [facility] Blood Venous blood specimen / Unknown Venipuncture / Unknown 06/16/2024 5:17 AM EDT 06/16/2024 10:33 AM EDT Torrey Kwok MD LAB BLOOD ORDERABLES Final Resul t [facility] [address] [place] [address], * (ABNORMAL) Complete blood count (06/16/2024 5:17 AM EDT) WBC 6.8 4.8 - 10.8 K/mcL LAB HEMETOLOGY METHOD 06/16/2024 11:13 AM EDT [facility] RBC 3.40(L) 3.80 - 4.80 M/mcL LAB HEMETOLOGY METHOD 06/16/2024 11:13 AM [facility] Hemoglobin 10.9(L) 11.5 - 16.0 g/dL LAB HEMETOLOGY METHOD 06/16/2024 11:13 AM [facility] Hematocrit 34.2(L) 35.0 - 47.0 % LAB HEMETOLOGY METHOD 06/16/2024 11:13 AM [facility] MCV 101.2(H) 79.0 - 98.0 FL LAB HEMETOLOGY METHOD 06/16/2024 11:13 AM EDT [facility] MCH 32.2(H) 27.0 - 32.0 pcg LAB HEMETOLOGY METHOD 06/16/2024 11:13 AM [facility] MCHC 31.9(L) 32.0 - 37.0 g/dL LAB HEMETOLOGY METHOD 06/16/2024 11:13 AM [facility] RDW 18.4(H) 11.0 - 15.0 % LAB HEMETOLOGY METHOD 06/16/2024 11:13 AM EDT [facility] Platelets 326 130 - 400 K/mcL LAB HEMETOLOGY METHOD 06/16/2024 11:13 AM EDT [facility] MPV 10.5 7.0 - 11.0 FL LAB HEMETOLOGY METHOD 06/16/2024 11:13 AM EDT [facility] NRBC 0.0 <1.0 % LAB HEMETOLOGY METHOD 06/16/2024 11:13 AM EDT [facility] NRBC Absolute 0.00 <0.10 K/mcL LAB HEMETOLOGY METHOD 06/16/2024 11:13 AM EDT [facility] Blood Venous blood specimen / Unknown Venipuncture / Unknown 06/16/2024 5:17 AM EDT 06/16/2024 10:36 AM EDT Torrey Kwok MD LAB BLOOD ORDERABLES Final Resul t [facility] [address] [place] [address], documented in this encounter Visit Diagnoses Diagnosis 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, [facility] V28) Essential (primary) hypertension Unspecified essential hypertension Heart failure, unspecified ([facility] V24, [facility] V28) Heart failure, unspecified 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
--- OUTSIDE RECORDS SUMMARY | 2025-01-07 14:20 | XMS_ITS | Encounter Summary ---
Author Organization [facility] Address [address] [place] [id number] Care Team Providers Care Agricultural Equipment Sales Manager Name Role Phone Torrey Kwok MD Primary Care Provider [phone] Encounter Details Date Type Department Care Team (Late st Contact Info) Description 07/26/[address] 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 V24, CMS/HCC V28) BASIC METABOLIC PANEL Routine 07/28/2024 5:15 AM EDT Type 2 diabetes mellitus with diabetic chronic kidney disease ([facility] V24, [facility] V28) Essential (primary) hypertension Heart failure, unspecified ([facility] V24, [facility] V28) 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 ([facility] V24, [facility] V28) documented in this encounter Results * (ABNORMAL) Basic metabolic panel (07/28/2024 5:15 AM EDT) Sodium 137 133 - 145 mmol/L LAB CHEMISTRY METHOD 07/28/2024 1:12 PM [facility] Potassium 3.7 3.5 - 5.5 mmol/L LAB CHEMISTRY METHOD 07/28/2024 1:12 PM [facility] Chloride 99 96 - 110 mmol/L LAB CHEMISTRY METHOD 07/28/2024 1:12 PM [facility] CO2 32 21 - 32 mmol/L LAB CHEMISTRY METHOD 07/28/2024 1:12 PM [facility] Anion Gap 6 3 - 11 LAB CHEMISTRY METHOD 07/28/2024 1:12 PM [facility] Glucose 292(H) 70 - 100 mg/dL LAB CHEMISTRY METHOD 07/28/2024 1:12 PM [facility] BUN 26(H) 5 - 25 mg/dL LAB CHEMISTRY METHOD 07/28/2024 1:12 PM [facility] Creatinine 1.21(H) 0.50 - 1.10 mg/dL LAB CHEMISTRY METHOD 07/28/2024 1:12 PM [facility] eGFR 43(L) >=60 mL/min/1. 73m2 LAB CHEMISTRY METHOD 07/28/2024 1:12 PM [facility] Comment:Calculation based on the Chronic Kidney Disease Epidemiology Collaboration (CKD-EPI) equation refit without adjustment for race. BUN/Creatinine Ratio 21.5 LAB CHEMISTRY METHOD 07/28/2024 1:12 PM EDT [facility] Calcium 9.0 8.5 - 10.5 mg/dL LAB CHEMISTRY METHOD 07/28/2024 1:12 PM EDT [facility] Blood Venous blood specimen / Unknown Venipuncture / Unknown 07/28/2024 5:15 AM EDT 07/28/2024 11:29 AM EDT us Torrey Kwok MD LAB BLOOD ORDERABLES Final Resul t [facility] [address] [place] [address], * (ABNORMAL) Complete blood count (07/28/2024 5:15 AM EDT) WBC 8.2 4.8 - 10.8 K/mcL LAB HEMETOLOGY [facility] RBC 3.30(L) 3.80 - 4.80 M/mcL LAB HEMETOLOGY METHOD 07/28/2024 12:47 PM EDT [facility] Hemoglobin 10.3(L) 11.5 - 16.0 g/dL LAB HEMETOLOGY METHOD 07/28/2024 12:47 PM [facility] Hematocrit 33.0(L) 35.0 - 47.0 % LAB HEMETOLOGY METHOD 07/28/2024 12:47 PM EDT [facility] MCV 101.5(H) 79.0 - 98.0 FL LAB HEMETOLOGY METHOD 07/28/2024 12:47 PM EDT [facility] MCH 31.7 27.0 - 32.0 pcg LAB HEMETOLOGY METHOD 07/28/2024 12:47 PM [facility] MCHC 31.2(L) 32.0 - 37.0 g/dL LAB HEMETOLOGY METHOD 07/28/2024 12:47 PM EDT [facility] RDW 17.0(H) 11.0 - 15.0 % LAB HEMETOLOGY METHOD 07/28/2024 12:47 PM EDT [facility] Platelets 308 130 - 400 K/mcL LAB HEMETOLOGY METHOD 07/28/2024 12:47 PM EDT [facility] MPV 10.7 7.0 - 11.0 FL LAB HEMETOLOGY METHOD 07/28/2024 12:47 PM EDT [facility] NRBC 0.0 <1.0 % LAB HEMETOLOGY METHOD 07/28/2024 12:47 PM EDT [facility] NRBC Absolute 0.00 <0.10 K/mcL LAB HEMETOLOGY METHOD 07/28/2024 12:47 PM EDT [facility] Blood Venous blood specimen / Unknown Venipuncture / Unknown 07/28/2024 5:15 AM EDT 07/28/2024 11:29 AM EDT us Torrey Kwok MD LAB BLOOD ORDERABLES Final Resul t [facility] [address] [place] [address], documented in this encounter Visit Diagnoses Diagnosis 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, CMS/HCC V28) Essential (primary) hypertension Unspecified essential hypertension Heart failure, unspecified (CMS/HCC V24, CMS/HCC V28) Heart failure, unspecified 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
--- OUTSIDE RECORDS SUMMARY | 2025-01-07 14:20 | XMS_ITS | Encounter Summary ---
Author Organization [facility] Address [address] [place] [phone] Care Team Providers Care Surgical Elastic Knitter Hand Frame Name Role Phone Torrey Kwok MD Primary Care Provider [phone] Encounter Details Date Type Department Care Team (Late st Contact Info) Description 05/31/2024 Lab Requisition [facility] - Main Lab [address] [facility] [place] [address] Torrey Kwok MD [address] [place], [place] [id number] Type 2 diabetes mellitus with diabetic chronic [...] with unspecified diabetic retinopathy without macular edema ([facility]) documented in this encounter Results * (ABNORMAL) Basic metabolic panel (06/02/2024 5:33 AM EST) Sodium 133 133 - 145 mmol/L LAB CHEMISTRY METHOD 06/02/2024 1:18 PM [facility] Potassium 3.7 3.5 - 5.5 mmol/L LAB CHEMISTRY METHOD 06/02/2024 1:18 PM [facility] Chloride 94(L) 96 - 110 mmol/L LAB CHEMISTRY METHOD 06/02/2024 1:18 PM [facility] CO2 27 21 - 32 mmol/L LAB CHEMISTRY METHOD 06/02/2024 1:18 PM [facility] Anion Gap 12(H) 3 - 11 LAB CHEMISTRY METHOD 06/02/2024 1:18 PM [facility] Glucose 464(HH) 70 - 100 mg/dL LAB CHEMISTRY METHOD 06/02/2024 1:18 PM [facility] BUN 34(H) 5 - 25 mg/dL LAB CHEMISTRY METHOD 06/02/2024 1:18 PM [facility] Creatinine 1.18(H) 0.50 - 1.10 mg/dL LAB CHEMISTRY METHOD 06/02/2024 1:18 PM [facility] eGFR 45(L) >=60 mL/min/1. 73m2 LAB CHEMISTRY METHOD 06/02/2024 1:18 PM [facility] Comment:Calculation based on the Chronic Kidney Disease Epidemiology Collaboration (CKD-EPI) equation refit without adjustment for race. BUN/Creatinine Ratio 28.8 LAB CHEMISTRY METHOD 06/02/2024 1:18 PM [facility] Calcium 9.0 8.5 - 10.5 mg/dL LAB CHEMISTRY METHOD 06/02/2024 1:18 PM [facility] Blood Venous blood specimen / Unknown Venipuncture / Unknown 06/02/2024 5:33 AM EST 06/02/2024 10:52 AM EST Torrey Kwok MD LAB BLOOD ORDERABLES Final Resul t [facility] [address] [place] [address], * (ABNORMAL) Complete blood count (06/02/2024 5:33 AM EST) WBC 9.9 4.8 - 10.8 K/mcL LAB HEMETOLOGY METHOD 06/02/2024 2:00 PM [facility] RBC 3.70(L) 3.80 - 4.80 M/mcL LAB HEMETOLOGY METHOD 06/02/2024 2:00 PM [facility] Hemoglobin 11.5 11.5 - 16.0 g/dL LAB HEMETOLOGY METHOD 06/02/2024 2:00 PM [facility] Hematocrit 37.8 35.0 - 47.0 % LAB HEMETOLOGY METHOD 06/02/2024 2:00 PM [facility] MCV 103.6(H) 79.0 - 98.0 FL LAB HEMETOLOGY METHOD 06/02/2024 2:00 PM [facility] MCH 31.5 27.0 - 32.0 pcg LAB HEMETOLOGY METHOD 06/02/2024 2:00 PM [facility] MCHC 30.4(L) 32.0 - 37.0 g/dL LAB HEMETOLOGY METHOD 06/02/2024 2:00 PM [facility] RDW 18.5(H) 11.0 - 15.0 % LAB HEMETOLOGY METHOD 06/02/2024 2:00 PM [facility] Platelets 365 130 - 400 K/mcL LAB HEMETOLOGY METHOD 06/02/2024 2:00 PM EST [facility] MPV 10.4 7.0 - 11.0 FL LAB HEMETOLOGY METHOD 06/02/2024 2:00 PM EST [facility] NRBC 0.0 <1.0 % LAB HEMETOLOGY METHOD 06/02/2024 2:00 PM EST [facility] NRBC Absolute 0.00 <0.10 K/mcL LAB HEMETOLOGY METHOD 06/02/2024 2:00 PM EST [facility] Blood Venous blood specimen / Unknown Venipuncture / Unknown 06/02/2024 5:33 AM EST 06/02/2024 10:52 AM EST Torrey Kwok MD LAB BLOOD ORDERABLES Final Resul t [facility] [address] [place] [address], documented in this encounter Visit Diagnoses Diagnosis 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, CMS/HCC V28) Essential (primary) hypertension Unspecified essential hypertension Heart failure, unspecified (CMS/HCC V24, CMS/HCC V28) Heart failure, unspecified 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 V24, CMS/HCC V28) documented in this encounter Additional Health Concerns Infection Onset Date Last Indicated Resolved Time Respiratory Rule-Out 07/12/2024 07/11/2024 025 11:25 AM EDT documented as of this encounter Care Teams Surgical Elastic Knitter Hand Frame Relationship Specialty Start Date End Date Torrey Kwok MD [address] [place], [place] [id number] [place] [address] PCP - General Geriatric Medicine 04/25/24 documented as of this encounter
--- OUTSIDE RECORDS SUMMARY | 2025-01-07 14:20 | XMS_ITS | Encounter Summary ---
Author Organization [facility] Address [address] [place] [address] Care Team Providers Care Dog Trainer Name Role Phone Torrey Kwok MD Primary Care Provider [phone] Encounter Details Date Type Department Care Team (Late st Contact Info) Description 04/30/2024 Lab Requisition [facility] - Main Lab [address] [facility] [place] [address] Torrey Kwok MD [address] [place], [place] [id number] Type 2 diabetes mellitus without complications (CMS/HCC [...] EST Type 2 diabetes mellitus without complications (CMS/[facility]) documented in this encounter Results * (ABNORMAL) Complete blood count (04/30/2024 6:31 AM EST) WBC 6.6 4.8 - 10.8 K/[facility] LAB HEMETOLOGY METHOD 04/30/2024 2:51 PM EST [facility] RBC 3.40(L) 3.80 - 4.80 M/[facility] LAB HEMETOLOGY METHOD 04/30/2024 2:51 PM EST [facility] Hemoglobin 10.7(L) 11.5 - 16.0 g/dL LAB HEMETOLOGY METHOD 04/30/2024 2:51 PM [facility] Hematocrit 34.7(L) 35.0 - 47.0 % LAB HEMETOLOGY METHOD 04/30/2024 2:51 PM [facility] MCV 101.5(H) 79.0 - 98.0 FL LAB HEMETOLOGY METHOD 04/30/2024 2:51 PM [facility] MCH 31.3 27.0 - 32.0 [...] LAB BLOOD ORDERABLES Final [facility]ul [facility] [address] [place] [address], documented in this encounter Visit Diagnoses Diagnosis Type 2 diabetes mellitus without complications (CMS/[facility] V24, CMS/[facility] V28) documented in this encounter Additional Health Concerns Infection Onset Date Last Indicated Resolved Time Respiratory Rule-Out 07/12/2024 07/11/2024 025 11:25 AM EDT documented as of this encounter Care Teams Dog Trainer Relationship Specialty Start Date End Date Torrey Kwok MD [address] [place] [address] [address] [place] [address] PCP - General Geriatric Medicine 04/25/24 documented as of this encounter
--- OUTSIDE RECORDS SUMMARY | 2025-01-07 14:20 | XMS_ITS | Clinical Summary ---
Author Organization [address] Address [address] [place] [address] Phone Care Team Providers Care Manual Arts Therapy Teacher Name Role Phone Torrey Kwok MD Primary Care Provider [phone] Encounters Date Type Department Care Team Description 01/03/2025 Lab Requisition [facility] [address] [place] [address] Torrey Kwok MD Type 2 diabetes mellitus with diabetic chronic kidney disease ([facility] V24, [facility] V28); Essential (primary) hypertension; Heart failure, unspecified ([facility] V24, [facility] V28); 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 ([facility] V24, [facility] V28) 01/02/2025 Lab Requisition [facility] [address] [place] [address] Torrey Kwok MD Type 2 diabetes mellitus without complications ([facility] V24, [facility] V28) 12/26/2024 Lab Requisition [facility] [address] [place] [address] Torrey Kwok MD Essential (primary) hypertension; Heart failure, unspecified ([facility] V24, [facility] V28); Type 2 diabetes mellitus with diabetic chronic kidney disease ([facility] V24, [facility] V28); 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 ([facility] V24, [facility] V28) 12/19/2024 Lab Requisition [facility] [address] [place] [address] Torrey Kwok MD Type 2 diabetes mellitus with diabetic chronic kidney disease ([facility]/HCC V24, [facility]/HCC V28); Heart failure, unspecified ([facility]/HCC V24, [facility]/HCC V28); 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 ([facility]/HCC V24, [facility]/HCC V28); Essential (primary) hypertension 12/18/2024 Lab Requisition [facility] [address] [place] [address] Torrey Kwok MD Type 2 diabetes mellitus without complications ([facility]/HCC V24, [facility]/HCC V28) 12/13/2024 Lab Requisition [facility] [address] [place] [address] Torrey Kwok MD Type 2 diabetes mellitus with diabetic chronic kidney disease ([facility] V24, [facility] V28); Essential (primary) hypertension; Heart failure, unspecified ([facility] V24, [facility] V28); 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 ([facility]/HCC V24, [facility]/HCC V28) 12/05/2024 Lab Requisition [facility] [address] [place] [address] Torrey Kwok MD Type 2 diabetes mellitus with diabetic chronic kidney disease ([facility]/HCC V24, [facility]/HCC V28); Essential (primary) hypertension; Heart failure, unspecified ([facility]/HCC V24, [facility]/HCC V28); 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 ([facility]/HCC V24, [facility]/HCC V28) 11/28/2024 Lab Requisition [facility] [address] [place] [address] Torrey Kwok MD Type 2 diabetes mellitus with diabetic chronic kidney disease ([facility]/HCC V24, [facility]/HCC V28); Essential (primary) hypertension; Heart failure, unspecified ([facility] V24, [facility]/HCC V28); 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 ([facility] V24, [facility] V28) 11/22/2024 Lab Requisition [facility] [address] [facility] [place] [phone] Torrey Kwok MD Type 2 diabetes mellitus with diabetic chronic kidney disease ([facility] V24, [facility] V28); Essential (primary) hypertension; Heart failure, unspecified ([facility] V24, [facility] V28); 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 ([facility] V24, [facility] V28) 11/14/2024 Lab Requisition [facility] [address] [facility] [place] [phone] Torrey Kwok MD Type 2 diabetes mellitus with diabetic chronic kidney disease ([facility] V24, [facility] V28); Essential (primary) hypertension; Heart failure, unspecified ([facility] V24, [facility] V28); 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 ([facility] V24, [facility] V28) 11/08/2024 Lab Requisition [facility] [address] [facility] [place] [phone] Torrey Kwok MD Type 2 diabetes mellitus with diabetic chronic kidney disease ([facility] V24, [facility] V28); Essential (primary) hypertension; Heart failure, unspecified ([facility] V24, [facility] V28); Type 2 diabetes mellitus with unspecified diabetic retinopathy without macular edema ([facility] V24, [facility] V28) 11/01/2024 Lab Requisition [facility] [address] [facility] [place] [phone] Torrey Kwok MD Type 2 diabetes mellitus with diabetic chronic kidney disease ([facility] V24, [facility] V28); Essential (primary) hypertension; Heart failure, unspecified ([facility] V24, [facility] V28); Type 2 diabetes mellitus with unspecified diabetic retinopathy without macular edema ([facility] V24, [facility] V28) 10/28/2024 Lab Requisition [facility] [address] [place] [phone] 10/28/2024 Lab Requisition [facility] [address] [place] [phone] Torrey Kwok MD Frequency of micturition 10/28/2024 Lab Requisition [facility] [address] [place] [phone] Torrey Kwok MD Frequency of micturition 10/25/2024 Lab Requisition [facility] [address] [place] [phone] Torrey Kwok MD Type 2 diabetes mellitus with diabetic chronic kidney disease ([facility] V24, [facility] V28); Essential (primary) hypertension; Heart failure, unspecified ([facility] V24, [facility] V28); 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 ([facility] V24, [facility] V28) 10/17/2024 Lab Requisition [facility] [address] [place] [phone] Torrey Kwok MD Type 2 diabetes mellitus with diabetic chronic kidney disease ([facility]/HCC V24, [facility] V28); Essential (primary) hypertension; Heart failure, unspecified ([facility] V24, [facility] V28); 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 ([facility] V24, [facility] V28) 10/09/2024 Lab Requisition [facility] [address] [place] [address] Torrey Kwok MD Type 2 diabetes mellitus with diabetic chronic kidney disease ([facility] V24, [facility] V28); Essential (primary) hypertension; Heart failure, unspecified ([facility] V24, [facility] V28); 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 ([facility] V24, [facility] V28) from Last 3 Months Social History Tobacco [...] Patients (1 - 1-dose 75+ series) 08/17/2011 Depression Screening 04/09/2024 Cholesterol Screening (Lipid Panel) 04/25/2024 Falls Risk Assessment 04/25/2024 Medicare Annual Wellness Visit 04/25/2024 Osteoporosis Screening (Bone Density Screening) 04/25/2024 Social Influencers of Health Screening 04/25/2024 COVID-19 Vaccine (2 - season) 2024 02/15/2021 Influenza Vaccine (#1) 2024 , 01/28/2019, 01/07/2018, Additional history exists Diabetes: Blood Sugar Control Test (HGBA1C) 06/21/2025 12/22/2024, 12/19/2024, 09/17/2024, Additional history exists Hypertension/CHF/CAD Annual BMP Blood Test 12/29/2025 12/29/2024, 12/22/2024, 12/15/2024, Additional history exists HIB Vaccines Aged Out [...] with macular edema (CMS/HCC V24, CMS/HCC V28) HEMOGLOBIN A1C Routine 12/22/2024 6:38 AM EDT 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, CMS/HCC V28) Heart failure, unspecified (CMS/HCC V24, CMS/HCC V28) 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 V24, CMS/HCC V28) Essential (primary) hypertension COMPLETE BLOOD COUNT Routine 12/22/2024 6:38 AM EDT 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, CMS/HCC V28) Heart failure, unspecified (CMS/HCC V24, CMS/HCC V28) 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 V24, CMS/HCC V28) Essential (primary) hypertension BASIC METABOLIC PANEL Routine 12/22/2024 6:38 AM EDT 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, CMS/HCC V28) Heart failure, unspecified (CMS/HCC V24, CMS/HCC V28) 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 V24, CMS/HCC V28) Essential (primary) hypertension HEMOGLOBIN A1C Routine 12/19/2024 6:26 AM EDT Type 2 diabetes mellitus without complications (CMS/HCC V24, CMS/HCC V28) COMPLETE BLOOD COUNT Routine 12/15/2024 6:28 AM [...] V24, CMS/HCC V28) COMPLETE BLOOD COUNT Routine 12/09/2024 5:54 AM [...] V24, CMS/HCC V28) COMPLETE BLOOD COUNT Routine 11/24/2024 9:52 AM EDT 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, CMS/HCC V28) Essential (primary) hypertension Heart failure, unspecified (CMS/HCC V24, CMS/HCC V28) 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 V24, CMS/HCC V28) BASIC METABOLIC PANEL Routine 11/24/2024 9:52 AM EDT 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, CMS/HCC V28) Essential (primary) hypertension Heart failure, unspecified (CMS/HCC V24, CMS/HCC V28) 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 V24, CMS/HCC V28) COMPLETE BLOOD COUNT Routine 11/17/2024 8:27 AM EDT 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, CMS/HCC V28) Essential (primary) hypertension Heart failure, unspecified (CMS/HCC V24, CMS/HCC V28) 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 V24, CMS/HCC V28) BASIC METABOLIC PANEL Routine 11/17/2024 8:27 AM EDT 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, CMS/HCC V28) Essential (primary) hypertension Heart failure, unspecified (CMS/HCC V24, CMS/HCC V28) 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 V24, CMS/HCC V28) COMPLETE BLOOD COUNT Routine 11/10/2024 9:37 AM EDT 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, CMS/HCC V28) Essential (primary) hypertension Heart failure, unspecified (CMS/HCC V24, CMS/HCC V28) 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 V24, CMS/HCC V28) BASIC METABOLIC PANEL Routine 11/10/2024 9:37 AM EDT 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, CMS/HCC V28) Essential (primary) hypertension Heart failure, unspecified (CMS/HCC V24, CMS/HCC V28) 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 V24, CMS/HCC V28) BASIC METABOLIC PANEL Routine 11/03/2024 5:57 AM EDT 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, CMS/HCC V28) Essential (primary) hypertension Heart failure, unspecified (CMS/HCC V24, CMS/HCC V28) 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 V24, CMS/HCC V28) COMPLETE BLOOD COUNT Routine 11/03/2024 5:57 AM EDT 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, CMS/HCC V28) Essential (primary) hypertension Heart failure, unspecified (CMS/HCC V24, CMS/HCC V28) 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 V24, CMS/HCC V28) URINALYSIS WITH REFLEX MICROSCOPIC AND CULTURE Routine 10/28/2024 12:00 AM EDT Frequency of micturition URINALYSIS WITH REFLEX MICROSCOPIC AND CULTURE Routine 10/28/2024 12:00 AM EDT Frequency of micturition FROST URINE CULTURE TUBE Routine 10/28/2024 12:00 AM EDT Frequency of micturition CULTURE URINE Routine 10/28/2024 12:00 AM EDT Frequency of micturition COMPLETE BLOOD COUNT Routine 10/27/2024 6:16 AM EDT 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, CMS/HCC V28) Essential (primary) hypertension Heart failure, unspecified (CMS/HCC V24, CMS/HCC V28) 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 V24, CMS/HCC V28) BASIC METABOLIC PANEL Routine 10/27/2024 6:16 AM EDT 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, CMS/HCC V28) Essential (primary) hypertension Heart failure, unspecified (CMS/HCC V24, CMS/HCC V28) 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 V24, CMS/HCC V28) BASIC METABOLIC PANEL Routine 10/20/2024 5:58 AM EDT 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, CMS/HCC V28) Essential (primary) hypertension Heart failure, unspecified (CMS/HCC V24, CMS/HCC V28) 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 V24, CMS/HCC V28) COMPLETE BLOOD COUNT Routine 10/20/2024 5:58 AM EDT 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, CMS/HCC V28) Essential (primary) hypertension Heart failure, unspecified (CMS/HCC V24, CMS/HCC V28) 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 V24, CMS/HCC V28) BASIC METABOLIC PANEL Routine 10/13/2024 4:57 AM EDT 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, CMS/HCC V28) Essential (primary) hypertension Heart failure, unspecified (CMS/HCC V24, CMS/HCC V28) 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 WBC 6.9 4.8 - 10.8 K/mcL LAB HEMETOLOGY METHOD 12/29/2024 11:02 AM [facility] RBC 3.50(L) 3.80 - 4.80 M/mcL LAB HEMETOLOGY METHOD 12/29/2024 11:02 AM [facility] Hemoglobin 11.2(L) 11.5 - 16.0 g/dL LAB HEMETOLOGY METHOD 12/29/2024 11:02 AM [facility] Hematocrit 34.3(L) 35.0 - 47.0 % LAB HEMETOLOGY METHOD 12/29/2024 11:02 AM [facility] MCV 96.9 79.0 - 98.0 FL LAB HEMETOLOGY METHOD 12/29/2024 11:02 AM [facility] MCH 31.6 27.0 - 32.0 pcg LAB HEMETOLOGY METHOD 12/29/2024 11:02 AM [facility] MCHC 32.7 32.0 - 37.0 g/dL LAB HEMETOLOGY METHOD 12/29/2024 11:02 AM [facility] RDW 15.4(H) 11.0 - 15.0 % LAB HEMETOLOGY METHOD 12/29/2024 11:02 AM [facility] Platelets 236 130 - 400 K/mcL LAB HEMETOLOGY METHOD 12/29/2024 11:02 AM [facility] MPV 10.5 7.0 - 11.0 FL LAB HEMETOLOGY METHOD 12/29/2024 11:02 AM [facility] NRBC 0.0 <1.0 % LAB HEMETOLOGY METHOD 12/29/2024 11:02 AM T [facility] NRBC Absolute 0.00 <0.10 K/mcL LAB HEMETOLOGY METHOD 12/29/2024 11:02 AM [facility] Blood Venous blood specimen / Unknown Venipuncture / Unknown 12/29/2024 9:16 AM EDT 12/29/2024 10:37 AM EDT us Torrey Kwok MD LAB BLOOD ORDERABLES Final Resul t [facility] [address] [place] [address], [place] [phone] * (ABNORMAL) Basic metabolic panel (12/29/2024 9:11 AM EDT) Only the most recent of11 resultswithin the time period is included. Sodium 135 133 - 145 mmol/L LAB CHEMISTRY METHOD 12/29/2024 11:38 AM [facility] Potassium 4.0 3.5 - 5.5 mmol/L LAB CHEMISTRY METHOD 12/29/2024 11:38 AM [facility] Chloride 98 96 - 110 mmol/L LAB CHEMISTRY METHOD 12/29/2024 11:38 AM [facility] CO2 30 21 - 32 mmol/L LAB CHEMISTRY METHOD 12/29/2024 11:38 AM [facility] Anion Gap 7 3 - 11 LAB CHEMISTRY METHOD 12/29/2024 11:38 AM [facility] Glucose 283(H) 70 - 100 mg/dL LAB CHEMISTRY METHOD 12/29/2024 11:38 AM [facility] BUN 38(H) 5 - 25 mg/dL LAB CHEMISTRY METHOD 12/29/2024 11:38 AM [facility] Creatinine 1.33(H) 0.50 - 1.10 mg/dL LAB CHEMISTRY METHOD 12/29/2024 11:38 AM EDT [facility] eGFR 39(L) >=60 mL/min/1. 73m2 LAB CHEMISTRY METHOD 12/29/2024 11:38 AM EDT [facility] Comment:Calculation based on the Chronic Kidney Disease Epidemiology Collaboration (CKD-EPI) equation refit without adjustment for race. BUN/Creatinine Ratio 28.6 LAB CHEMISTRY METHOD 12/29/2024 11:38 AM EDT [facility] Calcium 8.9 8.5 - 10.5 mg/dL LAB CHEMISTRY METHOD 12/29/2024 11:38 AM EDT [facility] Blood Venous blood specimen / Unknown Venipuncture / Unknown 12/29/2024 9:11 AM EDT 12/29/2024 10:42 AM EDT us Torrey Kwok MD LAB BLOOD ORDERABLES Final Resul t Performing Organization Address City/[facility] de Phone Number [facility] [address] [place] [address], [place] [phone] * (ABNORMAL) Hemoglobin A1c (12/22/2024 6:38 AM EDT) Only the most recent of2 resultswithin the time period is included. Hemoglobin A1C 9.2(H) <6.5 % LAB CHEMISTRY METHOD 12/22/2024 1:38 PM EDT [facility] Mean Bld Glu Estim. 217 mg/dL LAB CHEMISTRY METHOD 12/22/2024 1:38 PM EDT [facility] Blood Venous blood specimen / Unknown Venipuncture / Unknown 12/22/2024 6:38 AM EDT 12/22/2024 11:02 AM EDT us Torrey Kwok MD LAB BLOOD ORDERABLES Final Resul t [facility] [address] [place] [address], [place] [phone] * (ABNORMAL) Urinalysis with reflex microscopic and culture (10/28/2024 12:00 AM EDT) Specific [place] Urine 1.013 1.003 - 1.030 LAB URINALYSIS - AUTOMATED METHOD 10/28/2024 10:52 AM [facility] pH, Urine 5.5 5.0 - 8.0 pH LAB URINALYSIS - AUTOMATED METHOD 10/28/2024 10:52 AM [facility] Leukocytes, Urine Large(A) Negative LAB URINALYSIS - AUTOMATED METHOD 10/28/2024 10:52 AM [facility] Nitrite, Urine Negative Negative LAB URINALYSIS - AUTOMATED METHOD 10/28/2024 10:52 AM [facility] Protein, Urine Trace <=Trace mg/dL LAB URINALYSIS - AUTOMATED METHOD 10/28/2024 10:52 AM [facility] Glucose, Urine Negative Negative mg/dL LAB URINALYSIS - AUTOMATED METHOD 10/28/2024 10:52 AM [facility] Ketones, Urine Negative Negative mg/dL LAB URINALYSIS - AUTOMATED METHOD 10/28/2024 10:52 AM [facility] Urobilinogen, Urine 0.2 0.2 - 1.0 mg/dL LAB URINALYSIS - AUTOMATED METHOD 10/28/2024 10:52 AM [facility] Bilirubin, Urine Negative Negative LAB URINALYSIS - AUTOMATED METHOD 10/28/2024 10:52 AM [facility] Blood, Urine Negative Negative LAB URINALYSIS - AUTOMATED METHOD 10/28/2024 10:52 AM [facility] RBC, Urine 3.2 0 - 4 /HPF LAB URINALYSIS - AUTOMATED METHOD 10/28/2024 10:52 AM [facility] WBC, Urine 43.0(H) 0 - 4 /HPF LAB URINALYSIS - AUTOMATED METHOD 10/28/2024 10:52 AM EDT [facility] Squamous Epithelial, Urine 57 0 - 60 /LPF LAB URINALYSIS - AUTOMATED METHOD 10/28/2024 10:52 AM EDT [facility] Bacteria, Urine Negative Negative /HPF LAB URINALYSIS - AUTOMATED METHOD 10/28/2024 10:52 AM EDT [facility] Hyaline Casts, Urine 0.4 0 - 3 /LPF LAB URINALYSIS - AUTOMATED METHOD 10/28/2024 10:52 AM EDT [facility] Urine Urine specimen obtained by clean catch procedure / Unknown 10/28/2024 10/28/2024 10:32 AM EDT us Torrey Kwok MD LAB URINE ORDERABLES Final Resul t Performing Organization Address City/[facility]/ZIP Co de Phone Number [facility] [address] [place] [address], [place] [phone] * Frost urine culture tube (10/28/2024 12:00 AM EDT) Extra Tube Hold for add-ons. 10/28/2024 12:01 PM EDT [facility] Comment:Auto resulted. Urine Urine specimen obtained by clean catch procedure / Unknown Non-blood Collection / Unknown 10/28/2024 10/28/2024 10:25 AM EDT us Torrey Kwok MD LAB URINE ORDERABLES Final Resul t Performing Organization Address City/[facility]/ZIP Co de Phone Number [facility] [address] [place] [address], [place] [phone] * Culture urine (10/28/2024 12:00 AM EDT) Culture, Urine 10,000-49,000 CFU/mL Mixed bacterial morphotypes present suggestive of possible contamination during collection. Suggest appropriate recollection if clinically indicated. 10/29/2024 9:54 AM EDT [facility] ([facility]) [facility] Urine Urine specimen obtained by clean catch procedure / Unknown 10/28/2024 10/28/2024 10:52 AM EDT Torrey Kwok MD LAB MICROBIOLOGY - GENERAL ORDER GENET Final Result [facility] [address] [place] [address], [place] [phone] from Last 3 Months Insurance MEDICARE [facility] Care Teams Manual Arts Therapy Teacher Relationship Specialty Start Date End Date Torrey Kwok MD [address] [place] [address] [address] [place] [address] PCP - General Geriatric Medicine 04/25/24
--- OUTSIDE RECORDS SUMMARY | 2025-01-07 14:20 | XMS_ITS | Encounter Summary ---
Author Organization [facility] Address [id number] [place] [address] Care Team Providers Care Psychiatric Registered Nurse Name Role Phone Torrey Kwok MD Primary Care Provider [phone] Encounter Details Date Type Department Care Team (Late st Contact Info) Description 06/07/2024 Lab Requisition [facility] - Main Lab [address] [facility] [place] [address] Torrey Kwok MD [address] [place], [place] [id number] Heart failure, unspecified (CMS/HCC V24, CMS/HCC V28); [...] diabetes mellitus with diabetic chronic kidney disease ([facility]/HCC) Chronic kidney disease, stage 3 unspecified (CMS/HCC) Vitamin D deficiency, unspecified Essential (primary) hypertension documented in this encounter Results * Vitamin D 25 hydroxy (06/07/2024 6:36 AM EST) Vit D, 25-Hydroxy 41.4 30.0 - 80.0 ng/mL LAB CHEMISTRY METHOD 06/07/2024 1:29 PM EST [facility] Blood Venous blood specimen / Unknown Venipuncture / Unknown 06/07/2024 6:36 AM EST 06/07/2024 9:58 AM EST us Torrey Kwok MD LAB BLOOD ORDERABLES Final Resul t Performing Organization Address City/[facility]/ZIP Co de Phone Number [facility] [address] [place] [address], [place] [phone] * Folate (06/07/2024 6:36 AM EST) Folate 9.8 2.8 - 17.0 ng/ml LAB CHEMISTRY METHOD 06/07/2024 12:13 PM EST [facility] Blood Venous blood specimen / Unknown Venipuncture / Unknown 06/07/2024 6:36 AM EST 06/07/2024 9:58 AM EST us Torrey Kwok MD LAB BLOOD ORDERABLES Final Resul t [facility] [address] [place] [address], [place] [phone] * (ABNORMAL) Vitamin B12 (06/07/2024 6:36 AM EST) Vitamin B-12 1,072(H) 250 - 900 pcg/mL LAB CHEMISTRY METHOD 06/07/2024 12:13 PM EST [facility] Blood Venous blood specimen / Unknown Venipuncture / Unknown 06/07/2024 6:36 AM EST 06/07/2024 9:58 AM EST Torrey Kwok MD LAB BLOOD ORDERABLES Final Resul t [facility] [address] [place] [address], documented in this encounter Visit Diagnoses Diagnosis Heart failure, unspecified ([facility] V24, [facility] V28) Heart failure, unspecified Type 2 diabetes mellitus with diabetic chronic kidney disease ([facility] V24, [facility] V28) Chronic kidney disease, stage 3 unspecified ([facility] V24, [facility] V28) Vitamin D deficiency, unspecified Essential (primary) hypertension Unspecified essential hypertension documented in this encounter Additional Health Concerns Infection Onset Date Last Indicated Resolved Time Respiratory Rule-Out 07/12/2024 07/11/2024 025 11:25 AM EDT documented as of this encounter Care Teams Psychiatric Registered Nurse Relationship Specialty Start Date End Date Torrey Kwok MD [address] [place] [address] [address] [place] [address] PCP - General Geriatric Medicine 04/25/24 documented as of this encounter
--- OUTSIDE RECORDS SUMMARY | 2025-01-07 14:20 | XMS_ITS | Clinical Summary ---
Author Organization [facility] Address [address] [facility] [address] [place] [address] Phone Care Team Providers Care Senior Environmental Consultant Name Role Phone Monique White MD Primary Care Provider [phone] Allergies Active Allergy Reactions Criticality Noted Date [...] PT (per her report last PT at [facility] in July-August 2020). I have [...] Diabetes: Hemoglobin A1C 07/24/2024 04/25/2024 Influenza Vaccine (#1) 2024 , 01/28/2019, 01/07/2018, Additional history exists Hepatitis B Vaccine Aged Out No longe r eligible based on patient's age to complete this topic Insurance [facility] Medicare [facility] Medicare Care Teams Senior Environmental Consultant Relationship Specialty Start Date End Date Monique White MD [facility] [address] [place] PCP - General Internal Medicine 03/11/21
--- OUTSIDE RECORDS SUMMARY | 2025-01-07 14:21 | XMS_ITS | Encounter Summary ---
Author Organization [facility] Address [address] [place] [phone] Care Team Providers Care Ladies' Hat Trimmer Name Role Phone Torrey Kwok MD Primary Care Provider [phone] Encounter Details Date Type Department Care Team (Late st Contact Info) Description 10/03/2024 Lab Requisition [facility] - Main Lab 299 [facility] [place] [address] Torrey Kwok MD [address] [place], [place] [phone] Type 2 diabetes mellitus with diabetic chronic [...] Associated Diagnosis Comments COMPLETE BLOOD COUNT Routine 10/06/2024 5:29 AM EDT 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, CMS/HCC V28) Essential (primary) hypertension Heart failure, unspecified (CMS/HCC V24, CMS/HCC V28) 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 V24, CMS/HCC V28) BASIC METABOLIC PANEL Routine 10/06/2024 5:29 AM EDT Type 2 diabetes mellitus with diabetic chronic kidney disease ([facility] V24, [facility] V28) Essential (primary) hypertension Heart failure, unspecified ([facility] V24, [facility] V28) Type 2 diabetes mellitus with unspecified diabetic retinopathy without macular edema ([facility] V24, [facility] V28) documented in this encounter Results * (ABNORMAL) Basic metabolic panel (10/06/2024 5:29 AM EDT) Sodium 131(L) 133 - 145 mmol/L LAB CHEMISTRY METHOD 10/06/2024 11:33 AM [facility] Potassium 4.6 3.5 - 5.5 mmol/L LAB CHEMISTRY METHOD 10/06/2024 11:33 AM [facility] Chloride 96 96 - 110 mmol/L LAB CHEMISTRY METHOD 10/06/2024 11:33 AM [facility] CO2 28 21 - 32 mmol/L LAB CHEMISTRY METHOD 10/06/2024 11:33 AM [facility] Anion Gap 7 3 - 11 LAB CHEMISTRY METHOD 10/06/2024 11:33 AM [facility] Glucose 133(H) 70 - 100 mg/dL LAB CHEMISTRY METHOD 10/06/2024 11:33 AM [facility] BUN 29(H) 5 - 25 mg/dL LAB CHEMISTRY METHOD 10/06/2024 11:33 AM [facility] Creatinine 1.32(H) 0.50 - 1.10 mg/dL LAB CHEMISTRY METHOD 10/06/2024 11:33 AM [facility] eGFR 39(L) >=60 mL/min/1. 73m2 LAB CHEMISTRY METHOD 10/06/2024 11:33 AM [facility] Comment:Calculation based on the Chronic Kidney Disease Epidemiology Collaboration (CKD-EPI) equation refit without adjustment for race. BUN/Creatinine Ratio 22.0 LAB CHEMISTRY METHOD 10/06/2024 11:33 AM EDT [facility] Calcium 8.7 8.5 - 10.5 mg/dL LAB CHEMISTRY METHOD 10/06/2024 11:33 AM EDT [facility] Blood Venous blood specimen / Unknown Venipuncture / Unknown 10/06/2024 5:29 AM EDT 10/06/2024 10:08 AM EDT us Torrey Kwok MD LAB BLOOD ORDERABLES Final Resul t [facility] [address] [place] [address], * (ABNORMAL) Complete blood count (10/06/2024 5:29 AM EDT) WBC 7.7 4.8 - 10.8 K/mcL LAB HEMETOLOGY METHOD 10/06/2024 11:21 AM [facility] RBC 3.10(L) 3.80 - 4.80 M/mcL LAB HEMETOLOGY METHOD 10/06/2024 11:21 AM [facility] Hemoglobin 9.7(L) 11.5 - 16.0 g/dL LAB HEMETOLOGY METHOD 10/06/2024 11:21 AM [facility] Hematocrit 29.9(L) 35.0 - 47.0 % LAB HEMETOLOGY METHOD 10/06/2024 11:21 AM T [facility] MCV 97.7 79.0 - 98.0 FL LAB HEMETOLOGY METHOD 10/06/2024 11:21 AM T [facility] MCH 31.7 27.0 - 32.0 pcg LAB HEMETOLOGY METHOD 10/06/2024 11:21 AM [facility] MCHC 32.4 32.0 - 37.0 g/dL LAB HEMETOLOGY METHOD 10/06/2024 11:21 AM EDT [facility] RDW 18.5(H) 11.0 - 15.0 % LAB HEMETOLOGY METHOD 10/06/2024 11:21 AM EDT [facility] Platelets 248 130 - 400 K/mcL LAB HEMETOLOGY METHOD 10/06/2024 11:21 AM EDT [facility] MPV 10.8 7.0 - 11.0 FL LAB HEMETOLOGY METHOD 10/06/2024 11:21 AM EDT [facility] NRBC 0.0 <1.0 % LAB HEMETOLOGY METHOD 10/06/2024 11:21 AM EDT [facility] NRBC Absolute 0.00 <0.10 K/mcL LAB HEMETOLOGY METHOD 10/06/2024 11:21 AM T [facility] Blood Venous blood specimen / Unknown Venipuncture / Unknown 10/06/2024 5:29 AM EDT 10/06/2024 10:08 AM EDT Torrey Kwok MD LAB BLOOD ORDERABLES Final Resul t [facility] [address] [place] [address], documented in this encounter Visit Diagnoses Diagnosis 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, CMS/HCC V28) Essential (primary) hypertension Unspecified essential hypertension Heart failure, unspecified (CMS/HCC V24, CMS/HCC V28) Heart failure, unspecified 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 V24, CMS/HCC V28) documented in this encounter Care Teams Ladies' Hat Trimmer Relationship Specialty Start Date End Date Torrey Kwok MD [address] [place] [address] [address] [place] [address] PCP - General Geriatric Medicine 04/25/24 documented as of this encounter
--- OUTSIDE RECORDS SUMMARY | 2025-01-07 14:21 | XMS_ITS | Encounter Summary ---
Author Organization [facility] Address [address] [place] [address] Care Team Providers Care Ski Lift Operator Name Role Phone Torrey Kwok MD Primary Care Provider [phone] Encounter Details Date Type Department Care Team (Late st Contact Info) Description 07/12/2024 Lab Requisition [facility] - Main Lab [address] [place] [address] Torrey Kwok MD [address] [place] [address] Acute cough Social History Tobacco Use Types [...] Procedure Name Priority Date/Time Associated Diagnosis Comments [id number], RSV, FLU A AND B QUALITATIVE RT-PCR, LOCAL REFERENCE LAB Routine 07/11/2024 1:00 PM EDT Acute cough documented in this encounter Results * [id number], RSV, Influenza A and B qualitative RT-PCR (07/11/2024 1:00 PM EDT) SARS COV-2 Not Detected Not Detected LAB MOLECULAR DIAGNOSTICS METHOD 07/12/2024 11:25 AM EDT [facility] Comment: Disclaimer: The manner in which this information is used to guide patient care is the responsibility of the healthcare provider. Testing was performed using the [place] SARS-CoV-2 test. This test has been authorized [...] for Healthcare Providers can be found at: https://www.fda.gov/media/257294/download Fact sheet for Patients can be found at: https://www.fda.gov/media/312290/download Influenza A PCR Not Detected Not Detected LAB MOLECULAR DIAGNOSTICS METHOD 07/12/2024 11:25 AM EDT [facility] Influenza B PCR Not Detected Not Detected LAB MOLECULAR DIAGNOSTICS METHOD 07/12/2024 11:25 AM EDT [facility] RSV PCR Not Detected Not Detected LAB MOLECULAR DIAGNOSTICS METHOD 07/12/2024 11:25 AM EDT [facility] Swab Nasopharyngeal structure / Unknown Non-blood Collection / Unknown 07/11/2024 1:00 PM EDT 07/12/2024 8:28 AM EDT Torrey Kwok MD LAB MICROBIOLOGY - GENERAL ORDER GENET Final Result [facility] [address] [place] [address], documented in this encounter Visit Diagnoses Diagnosis Acute cough documented in this encounter Additional Health Concerns Infection Onset Date Last Indicated Resolved Time Respiratory Rule-Out 07/12/2024 07/11/2024 025 11:25 AM EDT documented as of this encounter Care Teams Ski Lift Operator Relationship Specialty Start Date End Date Torrey Kwok MD [address] [facility] [address] [place] [address] PCP - General Geriatric Medicine 04/25/24 documented as of this encounter
--- OUTSIDE RECORDS SUMMARY | 2025-01-07 14:21 | XMS_ITS | Encounter Summary ---
Author Organization [facility] Address [address] [place] [address] Care Team Providers Care Door To Door Salesman Name Role Phone Torrey Kwok MD Primary Care Provider [phone] Encounter Details Date Type Department Care Team (Late st Contact Info) Description 10/28/[address] [facility] - Main Lab [address] [facility] [place] [address] Torrey Kwok MD [address] [place], [place] [phone] Frequency of micturition Social History Tobacco Use Types Packs/Day Years [...] 10/28/2024 12:00 AM EDT Frequency of micturition documented in this encounter Results * Culture urine (10/28/2024 12:00 AM EDT) Culture, Urine 10,000-49,000 CFU/mL Mixed bacterial morphotypes present suggestive of possible contamination during collection. Suggest appropriate recollection if clinically indicated. 10/29/2024 9:54 AM [facility] Urine Urine specimen obtained by clean catch procedure / Unknown 10/28/2024 10/28/2024 10:52 AM EDT Torrey Kwok MD LAB MICROBIOLOGY - GENERAL ORDER GENET Final Result [facility] [address] [place] [address], [place] [phone] * (ABNORMAL) Urinalysis with reflex microscopic and culture (10/28/2024 12:00 AM EDT) [facility] [place] Urine 1.013 1.003 - 1.030 LAB URINALYSIS - AUTOMATED METHOD 10/28/2024 10:52 AM [facility] pH, Urine 5.5 5.0 - 8.0 pH LAB URINALYSIS - AUTOMATED METHOD 10/28/2024 10:52 AM [facility] Leukocytes, Urine Large(A) Negative LAB URINALYSIS - AUTOMATED METHOD 10/28/2024 10:52 AM [facility] Nitrite, Urine Negative Negative LAB URINALYSIS - AUTOMATED METHOD 10/28/2024 10:52 AM [facility] Protein, Urine Trace <=Trace mg/dL LAB URINALYSIS - AUTOMATED METHOD 10/28/2024 10:52 AM [facility] Glucose, Urine Negative Negative mg/dL LAB URINALYSIS - AUTOMATED METHOD 10/28/2024 10:52 AM [facility] Ketones, Urine Negative Negative mg/dL LAB URINALYSIS - AUTOMATED METHOD 10/28/2024 10:52 AM [facility] Urobilinogen, Urine 0.2 0.2 - 1.0 mg/dL LAB URINALYSIS - AUTOMATED METHOD 10/28/2024 10:52 AM [facility] Bilirubin, Urine Negative Negative LAB URINALYSIS - AUTOMATED METHOD 10/28/2024 10:52 AM [facility] Blood, Urine Negative Negative LAB URINALYSIS - AUTOMATED METHOD 10/28/2024 10:52 AM [facility] RBC, Urine 3.2 0 - 4 /HPF LAB URINALYSIS - AUTOMATED METHOD 10/28/2024 10:52 AM [facility] WBC, Urine 43.0(H) 0 - 4 /HPF LAB URINALYSIS - AUTOMATED METHOD 10/28/2024 10:52 AM [facility] Squamous Epithelial, Urine 57 0 - 60 /LPF LAB URINALYSIS - AUTOMATED METHOD 10/28/2024 10:52 AM [facility] Bacteria, Urine Negative Negative /HPF LAB URINALYSIS - AUTOMATED METHOD 10/28/2024 10:52 AM [facility] Hyaline Casts, Urine 0.4 0 - 3 /LPF LAB URINALYSIS - AUTOMATED METHOD 10/28/2024 10:52 AM [facility] Urine Urine specimen obtained by clean catch procedure / Unknown 10/28/2024 10/28/2024 10:32 AM EDT us Torrey Kwok MD LAB URINE ORDERABLES Final Resul t [facility] [address] [place] [address], * Frost urine culture tube (10/28/2024 12:00 AM EDT) Extra Tube Hold for add-ons. [facility]:Auto resulted. Urine Urine specimen obtained by clean catch procedure / Unknown Non-blood Collection / Unknown 10/28/2024 10/28/2024 10:25 AM EDT Torrey Kwok MD LAB URINE ORDERABLES Final Resul t [facility] [address] [place] [address], documented in this encounter Visit Diagnoses Diagnosis Frequency of micturition Urinary frequency documented in this encounter Care Teams Door To Door Salesman Relationship Specialty Start Date End Date Torrey Kwok MD [address] [place] [address] [address] [place] [address] PCP - General Geriatric Medicine 04/25/24 documented as of this encounter
--- OUTSIDE RECORDS SUMMARY | 2025-01-07 14:21 | XMS_ITS | Encounter Summary ---
Author Organization [facility] Address [address] [place] [phone] Care Team Providers Care Drywall Hanger Name Role Phone Torrey Kwok MD Primary Care Provider Encounter Details Date Type Department Care Team (Late st Contact Info) Description 11/14/2024 Lab Requisition [facility] - Main Lab [address] [facility] [place] [address] Torrey Kwok MD [address] [place], [place] [id number] Type 2 diabetes mellitus with diabetic chronic [...] Associated Diagnosis Comments COMPLETE BLOOD COUNT Routine 11/17/2024 8:27 AM EDT 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, CMS/HCC V28) Essential (primary) hypertension Heart failure, unspecified (CMS/HCC V24, CMS/HCC V28) 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 V24, CMS/HCC V28) BASIC METABOLIC PANEL Routine 11/17/2024 8:27 AM EDT Type 2 diabetes mellitus with diabetic chronic kidney disease ([facility] V24, [facility] V28) Essential (primary) hypertension Heart failure, unspecified ([facility] V24, [facility] V28) Type 2 diabetes mellitus with unspecified diabetic retinopathy with macular edema ([facility] V24, [facility] V28) documented in this encounter Results * (ABNORMAL) Complete blood count (11/17/2024 8:27 AM EDT) [facility] WBC 8.8 4.8 - 10.8 K/mcL LAB HEMETOLOGY METHOD [facility] RBC 3.30(L) 3.80 - 4.80 M/mcL LAB HEMETOLOGY METHOD 11/17/2024 1:[address] [facility] Hemoglobin 10.4(L) 11.5 - 16.0 g/dL LAB HEMETOLOGY METHOD 11/17/2024 1:[address] [facility] Hematocrit 32.9(L) 35.0 - 47.0 % LAB HEMETOLOGY METHOD 11/17/2024 1:[address] [facility] MCV 100.0(H) 79.0 - 98.0 FL LAB HEMETOLOGY METHOD 11/17/2024 1:[address] [facility] MCH 31.6 27.0 - 32.0 pcg LAB HEMETOLOGY METHOD 11/17/2024 1:[address] [facility] MCHC 31.6(L) 32.0 - 37.0 g/dL LAB HEMETOLOGY METHOD 11/17/2024 1:[address] [facility] RDW 17.9(H) 11.0 - 15.0 % LAB HEMETOLOGY METHOD 11/17/2024 1:[address] [facility] Platelets 314 130 - 400 K/mcL LAB HEMETOLOGY METHOD 11/17/2024 1:17 PM EDT [facility] MPV 10.8 7.0 - 11.0 FL LAB HEMETOLOGY METHOD 11/17/2024 1:17 PM EDT [facility] NRBC 0.0 <1.0 % LAB HEMETOLOGY METHOD 11/17/2024 1:17 PM EDT [facility] NRBC Absolute 0.00 <0.10 K/mcL LAB HEMETOLOGY METHOD 11/17/2024 1:17 PM EDT [facility] Blood Venous blood specimen / Unknown Venipuncture / Unknown 11/17/2024 8:27 AM EDT 11/17/2024 11:57 AM EDT us Torrey Kwok MD LAB BLOOD ORDERABLES Final Resul t [facility] [address] [place] [address], * (ABNORMAL) Basic metabolic panel (11/17/2024 8:27 AM EDT) Sodium 135 133 - 145 mmol/L LAB CHEMISTRY METHOD 11/17/2024 1:[address] [facility] Potassium 4.1 3.5 - 5.5 mmol/L LAB CHEMISTRY METHOD 11/17/2024 1:[address] [facility] Chloride 99 96 - 110 mmol/L LAB CHEMISTRY METHOD 11/17/2024 1:[address] [facility] CO2 26 21 - 32 mmol/L LAB CHEMISTRY METHOD 11/17/2024 1:[address] [facility] Anion Gap 10 3 - 11 LAB CHEMISTRY METHOD 11/17/2024 1:[address] [facility] Glucose 146(H) 70 - 100 mg/dL LAB CHEMISTRY METHOD 11/17/2024 1:[address] [facility] BUN 42(H) 5 - 25 mg/dL LAB CHEMISTRY METHOD 11/17/2024 1:03 PM EDT [facility] Creatinine 1.42(H) 0.50 - 1.10 mg/dL LAB CHEMISTRY METHOD 11/17/2024 1:03 PM EDT [facility] eGFR 36(L) >=60 mL/min/1. 73m2 LAB CHEMISTRY METHOD 11/17/2024 1:03 PM EDT [facility] Comment:Calculation based on the Chronic Kidney Disease Epidemiology Collaboration (CKD-EPI) equation refit without adjustment for race. BUN/Creatinine Ratio 29.6 LAB CHEMISTRY METHOD 11/17/2024 1:03 PM EDT [facility] Calcium 9.1 8.5 - 10.5 mg/dL LAB CHEMISTRY METHOD 11/17/2024 1:03 PM EDT [facility] Blood Venous blood specimen / Unknown Venipuncture / Unknown 11/17/2024 8:27 AM EDT 11/17/2024 11:57 AM EDT Torrey Kwok MD LAB BLOOD ORDERABLES Final Resul t [facility] [address] [place] [address], documented in this encounter Visit Diagnoses Diagnosis 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, CMS/HCC V28) Essential (primary) hypertension Unspecified essential hypertension Heart failure, unspecified (CMS/HCC V24, CMS/HCC V28) Heart failure, unspecified 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 V24, CMS/HCC V28) documented in this encounter Care Teams Drywall Hanger Relationship Specialty Start Date End Date Torrey Kwok MD [address] [place] [address] [address] [place] [address] PCP - General Geriatric Medicine 04/25/24 documented as of this encounter
--- OUTSIDE RECORDS SUMMARY | 2025-01-07 14:21 | XMS_ITS | Encounter Summary ---
Author Organization [facility] Address [address] [place] [phone] Care Team Providers Care Director Product Name Role Phone Torrey Kwok MD Primary Care Provider Encounter Details Date Type Department Care Team (Late st Contact Info) Description 2024 Lab Requisition [facility] - Main Lab [address] [facility] [employer] [place] [address] Torrey Kwok MD [address] [place], [place] [phone] Type 2 diabetes mellitus with diabetic chronic [...] V28) documented in this encounter Care Teams Director Product Relationship Specialty Start Date End Date Torrey Kwok MD [address] [place] [address] PCP - General Geriatric Medicine 04/25/24 documented as of this encounter
--- OUTSIDE RECORDS SUMMARY | 2025-01-07 14:21 | XMS_ITS | Encounter Summary ---
Author Organization [facility] Address [address] [place] [phone] Care Team Providers Care Launderette Attendant Name Role Phone Torrey Kwok MD Primary Care Provider [phone] Encounter Details Date Type Department Care Team (Late st Contact Info) Description 08/01/2024 Lab Requisition [facility] - Main Lab 299 [facility] [place] [address] Torrey Kwok MD [address] [place], [place] [id number] Type 2 diabetes mellitus with diabetic chronic [...] Associated Diagnosis Comments COMPLETE BLOOD COUNT Routine 08/04/2024 5:22 AM EDT 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, CMS/HCC V28) Essential (primary) hypertension Heart failure, unspecified (CMS/HCC V24, CMS/HCC V28) 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 V24, CMS/HCC V28) BASIC METABOLIC PANEL Routine 08/04/2024 5:22 AM EDT Type 2 diabetes mellitus with diabetic chronic kidney disease ([employer] [facility] [employer] V24, [employer] [facility] [employer] V28) Essential (primary) hypertension Heart failure, unspecified ([employer] [facility] V24, [employer] [facility] [employer] V28) Type 2 diabetes mellitus with unspecified diabetic retinopathy with macular edema ([employer] [facility] [employer] V24, [employer] [facility] [employer] V28) documented in this encounter Results * (ABNORMAL) Basic metabolic panel (08/04/2024 5:22 AM EDT) Sodium 134 133 - 145 mmol/L LAB CHEMISTRY METHOD 08/04/2024 7:05 PM [facility] Potassium 4.1 3.5 - 5.5 mmol/L LAB CHEMISTRY METHOD 08/04/2024 7:05 PM [facility] Chloride 101 96 - 110 mmol/L LAB CHEMISTRY METHOD 08/04/2024 7:05 PM [facility] CO2 26 21 - 32 mmol/L LAB CHEMISTRY METHOD 08/04/2024 7:05 PM [facility] Anion Gap 7 3 - 11 LAB CHEMISTRY METHOD 08/04/2024 7:05 PM [facility] Glucose 158(H) 70 - 100 mg/dL LAB CHEMISTRY METHOD 08/04/2024 7:05 PM [facility] BUN 31(H) 5 - 25 mg/dL LAB CHEMISTRY METHOD 08/04/2024 7:05 PM [facility] Creatinine 1.08 0.50 - 1.10 mg/dL LAB CHEMISTRY METHOD 08/04/2024 7:05 PM [facility] eGFR 50(L) >=60 mL/min/1. 73m2 LAB CHEMISTRY METHOD 08/04/2024 7:05 PM [facility] Comment:Calculation based on the Chronic Kidney Disease Epidemiology Collaboration (CKD-EPI) equation refit without adjustment for race. BUN/Creatinine Ratio 28.7 LAB CHEMISTRY METHOD 08/04/2024 7:05 PM EDT [facility] Calcium 8.6 8.5 - 10.5 mg/dL LAB CHEMISTRY METHOD 08/04/2024 7:05 PM EDT [facility] Blood Venous blood specimen / Unknown Venipuncture / Unknown 08/04/2024 5:22 AM EDT 08/04/2024 11:34 AM EDT us Torrey Kwok MD LAB BLOOD ORDERABLES Final Resul t [facility] [address] [place] [address], * (ABNORMAL) Complete blood count (08/04/2024 5:22 AM EDT) WBC 5.6 4.8 - 10.8 K/mcL LAB HEMETOLOGY METHOD 08/04/2024 12:48 PM EDT [facility] RBC 3.50(L) 3.80 - 4.80 M/mcL LAB HEMETOLOGY METHOD [facility] Hemoglobin 11.0(L) 11.5 - 16.0 g/dL LAB HEMETOLOGY METHOD 08/04/2024 12:48 PM [facility] Hematocrit 34.4(L) 35.0 - 47.0 % LAB HEMETOLOGY METHOD 08/04/2024 12:48 PM EDT [facility] MCV 98.6(H) 79.0 - 98.0 FL LAB HEMETOLOGY METHOD 08/04/2024 12:48 PM EDT [facility] MCH 31.5 27.0 - 32.0 pcg LAB HEMETOLOGY METHOD 08/04/2024 12:48 PM [facility] MCHC 32.0 32.0 - 37.0 g/dL LAB HEMETOLOGY METHOD 08/04/2024 12:48 PM EDT [facility] RDW 16.2(H) 11.0 - 15.0 % LAB HEMETOLOGY METHOD 08/04/2024 12:48 PM EDT [facility] Platelets 301 130 - 400 K/mcL LAB HEMETOLOGY METHOD 08/04/2024 12:48 PM EDT [facility] MPV 10.7 7.0 - 11.0 FL LAB HEMETOLOGY METHOD 08/04/2024 12:48 PM EDT [facility] NRBC 0.0 <1.0 % LAB HEMETOLOGY METHOD 08/04/2024 12:48 PM EDT [facility] NRBC Absolute 0.00 <0.10 K/mcL LAB HEMETOLOGY METHOD 08/04/2024 12:48 PM EDT [facility] Blood Venous blood specimen / Unknown Venipuncture / Unknown 08/04/2024 5:22 AM EDT 08/04/2024 11:18 AM EDT us Torrey Kwok MD LAB BLOOD ORDERABLES Final Resul t [facility] [address] [place] [address], documented in this encounter Visit Diagnoses Diagnosis 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, CMS/HCC V28) Essential (primary) hypertension Unspecified essential hypertension Heart failure, unspecified (CMS/HCC V24, CMS/HCC V28) Heart failure, unspecified 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
--- OUTSIDE RECORDS SUMMARY | 2025-01-07 14:21 | XMS_ITS | Encounter Summary ---
Author Organization [facility] Address [address] [place] [address] Care Team Providers Care Project Safety Manager Name Role Phone Torrey Kwok MD Primary Care Provider [phone] Encounter Details Date Type Department Care Team (Late st Contact Info) Description 10/09/2024 Lab Requisition [facility] - Main Lab 299 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 V24, CMS/HCC V28) BASIC METABOLIC PANEL Routine 10/13/2024 4:57 AM EDT Type 2 diabetes mellitus with diabetic chronic kidney disease ([facility] V24, [facility] V28) Essential (primary) hypertension Heart failure, unspecified ([facility] V24, [facility] V28) 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 ([facility] V24, [facility] V28) documented in this encounter Results * (ABNORMAL) Basic metabolic panel (10/13/2024 4:57 AM EDT) Sodium 137 133 - 145 mmol/L LAB CHEMISTRY METHOD 10/13/2024 7:19 AM [facility] Potassium 4.2 3.5 - 5.5 mmol/L LAB CHEMISTRY METHOD 10/13/2024 7:19 AM [facility] Chloride 100 96 - 110 mmol/L LAB CHEMISTRY METHOD 10/13/2024 7:19 AM [facility] CO2 33(H) 21 - 32 mmol/L LAB CHEMISTRY METHOD 10/13/2024 7:19 AM [facility] Anion Gap 4 3 - 11 LAB CHEMISTRY METHOD 10/13/2024 7:19 AM [facility] Glucose 261(H) 70 - 100 mg/dL LAB CHEMISTRY METHOD 10/13/2024 7:19 AM [facility] BUN 39(H) 5 - 25 mg/dL LAB CHEMISTRY METHOD 10/13/2024 7:19 AM [facility] Creatinine 1.29(H) 0.50 - 1.10 mg/dL LAB CHEMISTRY METHOD 10/13/2024 7:19 AM [facility] eGFR 40(L) >=60 mL/min/1. 73m2 LAB CHEMISTRY METHOD 10/13/2024 7:19 AM [facility] Comment:Calculation based on the Chronic Kidney Disease Epidemiology Collaboration (CKD-EPI) equation refit without adjustment for race. BUN/Creatinine Ratio 30.2 LAB CHEMISTRY METHOD 10/13/2024 7:19 AM EDT [facility] Calcium 9.2 8.5 - 10.5 mg/dL LAB CHEMISTRY METHOD 10/13/2024 7:19 AM [facility] Blood Venous blood specimen / Unknown Venipuncture / Unknown 10/13/2024 4:57 AM EDT 10/13/2024 5:56 AM EDT us Torrey Kwok MD LAB BLOOD ORDERABLES Final Resul t [facility] [address] [place] [address], * (ABNORMAL) Complete blood count (10/13/2024 4:57 AM EDT) WBC 5.0 4.8 - 10.8 K/mcL LAB HEMETOLOGY METHOD 10/13/2024 6:04 AM [facility] RBC 3.00(L) 3.80 - 4.80 M/mcL LAB HEMETOLOGY METHOD 10/13/2024 6:04 AM [facility] Hemoglobin 9.6(L) 11.5 - 16.0 g/dL LAB HEMETOLOGY METHOD 10/13/2024 6:04 AM [facility] Hematocrit 30.1(L) 35.0 - 47.0 % LAB HEMETOLOGY METHOD 10/13/2024 6:04 AM [facility] MCV 99.3(H) 79.0 - 98.0 FL LAB HEMETOLOGY METHOD 10/13/2024 6:04 AM [facility] MCH 31.7 27.0 - 32.0 pcg LAB HEMETOLOGY METHOD 10/13/2024 6:04 AM [facility] MCHC 31.9(L) 32.0 - 37.0 g/dL LAB HEMETOLOGY METHOD 10/13/2024 6:04 AM EDT [facility] RDW 18.7(H) 11.0 - 15.0 % LAB HEMETOLOGY METHOD 10/13/2024 6:04 AM EDT [facility] Platelets 307 130 - 400 K/mcL LAB HEMETOLOGY METHOD 10/13/2024 6:04 AM EDT [facility] MPV 10.8 7.0 - 11.0 FL LAB HEMETOLOGY METHOD 10/13/2024 6:04 AM EDT [facility] NRBC 0.0 <1.0 % LAB HEMETOLOGY METHOD 10/13/2024 6:04 AM EDT [facility] NRBC Absolute 0.00 <0.10 K/mcL LAB HEMETOLOGY METHOD 10/13/2024 6:04 AM EDT [facility] Blood Venous blood specimen / Unknown Venipuncture / Unknown 10/13/2024 4:57 AM EDT 10/13/2024 5:57 AM EDT us Torrey Kwok MD LAB BLOOD ORDERABLES Final Resul t [facility] [address] [place] [address], documented in this encounter Visit Diagnoses Diagnosis 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, CMS/HCC V28) Essential (primary) hypertension Unspecified essential hypertension Heart failure, unspecified (CMS/HCC V24, CMS/HCC V28) Heart failure, unspecified 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
--- OUTSIDE RECORDS SUMMARY | 2025-01-07 14:21 | XMS_ITS | Encounter Summary ---
Author Organization [facility] Address [address] [place] [address] Care Team Providers Care Mammalogy Teacher Name Role Phone Torrey Kwok MD Primary Care Provider [phone] Encounter Details Date Type Department Care Team (Late st Contact Info) Description 10/28/2024 Lab Requisition [facility] - Main Lab 299 [facility] [place] [address] Torrey Kwok MD [address] [place], [place] [phone] Frequency of micturition Social History Tobacco Use [...] as of this encounter Visit Diagnoses Diagnosis Frequency of micturition Urinary frequency documented in this encounter Care Teams Mammalogy Teacher Relationship Specialty Start Date End Date Torrey Kwok MD [address] [place], [place] [phone] PCP - General Geriatric Medicine 04/25/24 documented as of this encounter
--- OUTSIDE RECORDS SUMMARY | 2025-01-07 14:21 | XMS_ITS | Encounter Summary ---
Author Organization [facility] Address [address] [place] [address] Care Team Providers Care Director Of Strategy & Mobile Name Role Phone Torrey Kwok MD Primary Care Provider [phone] Encounter Details Date Type Department Care Team (Late st Contact Info) Description 09/26/2024 Lab Requisition [facility] - Main Lab 299 [facility] [place] [address] Torrey Kwok MD [address] [place], [place] [phone] Type 2 diabetes mellitus with diabetic chronic [...] Associated Diagnosis Comments COMPLETE BLOOD COUNT Routine 09/29/2024 6:25 AM EDT 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, CMS/HCC V28) Essential (primary) hypertension Heart failure, unspecified (CMS/HCC V24, CMS/HCC V28) 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 V24, CMS/HCC V28) BASIC METABOLIC PANEL Routine 09/29/2024 6:25 AM EDT Type 2 diabetes mellitus with diabetic chronic kidney disease ([facility] [place]24, [facility] V28) Essential (primary) hypertension Heart failure, unspecified ([facility] V24, [facility] V28) 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 ([facility] V24, [facility] V28) documented in this encounter Results * (ABNORMAL) Complete blood count (09/29/2024 6:25 AM EDT) [facility] WBC 8.8 4.8 - 10.8 K/mcL LAB HEMETOLOGY METHOD 09/29/2024 11:04 AM [facility] RBC 3.60(L) 3.80 - 4.80 M/mcL LAB HEMETOLOGY METHOD 09/29/2024 11:04 AM [facility] Hemoglobin 11.5 11.5 - 16.0 g/dL LAB HEMETOLOGY METHOD 09/29/2024 11:04 AM [facility] Hematocrit 35.3 35.0 - 47.0 % LAB HEMETOLOGY METHOD 09/29/2024 11:04 AM [facility] MCV 97.5 79.0 - 98.0 FL LAB HEMETOLOGY METHOD 09/29/2024 11:04 AM [facility] MCH 31.8 27.0 - 32.0 pcg LAB HEMETOLOGY METHOD 09/29/2024 11:04 AM [facility] MCHC 32.6 32.0 - 37.0 g/dL LAB HEMETOLOGY METHOD 09/29/2024 11:04 AM [facility] RDW 17.8(H) 11.0 - 15.0 % LAB HEMETOLOGY METHOD 09/29/2024 11:04 AM [facility] Platelets 283 130 - 400 K/mcL LAB HEMETOLOGY METHOD 09/29/2024 11:04 AM [facility] MPV 11.2(H) 7.0 - 11.0 FL LAB HEMETOLOGY METHOD 09/29/2024 11:04 AM EDT [facility] NRBC 0.0 <1.0 % LAB HEMETOLOGY METHOD 09/29/2024 11:04 AM EDT [facility] NRBC Absolute 0.00 <0.10 K/mcL LAB HEMETOLOGY METHOD 09/29/2024 11:04 AM EDT [facility] Blood Venous blood specimen / Unknown Venipuncture / Unknown 09/29/2024 6:25 AM EDT 09/29/2024 10:20 AM EDT Torrey Kwok MD LAB BLOOD ORDERABLES Final Resul t [facility] [address] [place] [address], * (ABNORMAL) Basic metabolic panel (09/29/2024 6:25 AM EDT) Sodium 136 133 - 145 mmol/L LAB CHEMISTRY METHOD 09/29/2024 12:10 PM [facility] Potassium 4.0 3.5 - 5.5 mmol/L LAB CHEMISTRY METHOD 09/29/2024 12:10 PM [facility] Chloride 96 96 - 110 mmol/L LAB CHEMISTRY METHOD 09/29/2024 12:10 PM [facility] CO2 29 21 - 32 mmol/L LAB CHEMISTRY METHOD 09/29/2024 12:10 PM [facility] Anion Gap 11 3 - 11 LAB CHEMISTRY METHOD 09/29/2024 12:10 PM [facility] Glucose 316(H) 70 - 100 mg/dL LAB CHEMISTRY METHOD 09/29/2024 12:10 PM [facility] BUN 30(H) 5 - 25 mg/dL LAB CHEMISTRY METHOD 09/29/2024 12:10 PM EDT [facility] Creatinine 1.28(H) 0.50 - 1.10 mg/dL LAB CHEMISTRY METHOD 09/29/2024 12:10 PM EDT [facility] eGFR 40(L) >=60 mL/min/1. 73m2 LAB CHEMISTRY METHOD 09/29/2024 12:10 PM EDT [facility] Comment:Calculation based on the Chronic Kidney Disease Epidemiology Collaboration (CKD-EPI) equation refit without adjustment for race. BUN/Creatinine Ratio 23.4 LAB CHEMISTRY METHOD 09/29/2024 12:10 PM EDT [facility] Calcium 8.7 8.5 - 10.5 mg/dL LAB CHEMISTRY METHOD 09/29/2024 12:10 PM EDT [facility] Blood Venous blood specimen / Unknown Venipuncture / Unknown 09/29/2024 6:25 AM EDT 09/29/2024 10:20 AM EDT us Torrey Kwok MD LAB BLOOD ORDERABLES Final Resul t [facility] [address] [place] [address], documented in this encounter Visit Diagnoses Diagnosis Type 2 diabetes mellitus with diabetic chronic kidney disease ([facility] V24, [facility] V28) Essential (primary) hypertension Unspecified essential hypertension Heart failure, unspecified ([facility]/HCC V24, [facility] V28) Heart failure, unspecified 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
--- OUTSIDE RECORDS SUMMARY | 2025-01-07 14:21 | XMS_ITS | Encounter Summary ---
Author Organization [facility] Address [address] [place] [phone] Care Team Providers Care Liner Machine Operator Helper Name Role Phone Torrey Kwok MD Primary Care Provider [phone] Encounter Details Date Type Department Care Team (Late st Contact Info) Description 05/09/2024 Lab Requisition [facility] - Main Lab 299 [facility] [place] [address] Torrey Kwok MD [address] [place], [place] [phone] Type 2 diabetes mellitus with unspecified diabetic [...] diabetes mellitus with diabetic chronic kidney disease ([facility]/HCC) documented in this encounter Results * (ABNORMAL) Basic metabolic panel (05/12/2024 5:48 AM EST) Sodium 135 133 - 145 mmol/L LAB CHEMISTRY METHOD 05/12/2024 1:22 PM [facility] Potassium 3.5 3.5 - 5.5 mmol/L LAB CHEMISTRY METHOD 05/12/2024 1:22 PM [facility] Chloride 98 96 - 110 mmol/L LAB CHEMISTRY METHOD 05/12/2024 1:22 PM [facility] CO2 30 21 - 32 mmol/L LAB CHEMISTRY METHOD 05/12/2024 1:22 PM [facility] Anion Gap 7 3 - 11 LAB CHEMISTRY METHOD 05/12/2024 1:22 PM [facility] Glucose 219(H) 70 - 100 mg/dL LAB CHEMISTRY METHOD 05/12/2024 1:22 PM [facility] BUN 28(H) 5 - 25 mg/dL LAB CHEMISTRY METHOD 05/12/2024 1:22 PM [facility] Creatinine 0.97 0.50 - 1.10 mg/dL LAB CHEMISTRY METHOD 05/12/2024 1:22 PM [facility] eGFR 57(L) >=60 mL/min/1. 73m2 LAB CHEMISTRY METHOD 05/12/2024 1:22 PM [facility] Comment:Calculation based on the Chronic Kidney Disease Epidemiology Collaboration (CKD-EPI) equation refit without adjustment for race. BUN/Creatinine Ratio 28.9 LAB CHEMISTRY METHOD 05/12/2024 1:22 PM [facility] Calcium 8.6 8.5 - 10.5 mg/dL LAB CHEMISTRY METHOD 05/12/2024 1:22 PM [facility] Blood Venous blood specimen / Unknown 05/12/2024 5:48 AM EST 05/12/2024 11:28 AM EST Torrey Kwok MD LAB BLOOD ORDERABLES Final Resul t [facility] [address] [place] [address], [place] [phone] * (ABNORMAL) Complete blood count (05/12/2024 5:48 AM EST) Pathologist [facility] WBC 7.5 4.8 - 10.8 K/mcL LAB HEMETOLOGY METHOD 05/12/2024 12:44 PM [facility] RBC 3.30(L) 3.80 - 4.80 M/mcL LAB HEMETOLOGY METHOD 05/12/2024 12:44 PM [facility] Hemoglobin 10.5(L) 11.5 - 16.0 g/dL LAB HEMETOLOGY METHOD 05/12/2024 12:44 PM [facility] Hematocrit 33.5(L) 35.0 - 47.0 % LAB HEMETOLOGY METHOD 05/12/2024 12:44 PM [facility] MCV 100.9(H) 79.0 - 98.0 FL LAB HEMETOLOGY METHOD 05/12/2024 12:44 PM [facility] MCH 31.6 27.0 - 32.0 pcg LAB HEMETOLOGY METHOD 05/12/2024 12:44 PM [facility] MCHC 31.3(L) 32.0 - 37.0 g/dL LAB HEMETOLOGY METHOD 05/12/2024 12:44 PM [facility] RDW 20.0(H) 11.0 - 15.0 % LAB HEMETOLOGY METHOD 05/12/2024 12:44 PM [facility] Platelets 386 130 - 400 K/mcL LAB HEMETOLOGY METHOD 05/12/2024 12:44 PM EST [facility] MPV 10.3 7.0 - 11.0 [...] Resul t [facility] [address] [place] [address], documented in this encounter Visit Diagnoses Diagnosis [...] documented as of this encounter Care Teams Liner Machine Operator Helper Relationship Specialty Start Date End Date Torrey Kwok MD [address] [place] [address] [address] [place] [address] PCP - General Geriatric Medicine 04/25/24 documented as of this encounter
--- OUTSIDE RECORDS SUMMARY | 2025-01-07 14:21 | XMS_ITS | Encounter Summary ---
Author Organization [facility] Address [address] [place] [address] Care Team Providers Care Waxer Tender Name Role Phone Torrey Kwok MD Primary Care Provider [phone] Encounter Details Date Type Department Care Team (Late st Contact Info) Description 05/09/2024 Lab Requisition [facility] - Main Lab 299 [facility] [place] [address] Torrey Kwok MD [address] [place], [place] [phone] Type 2 diabetes mellitus with unspecified diabetic [...] documented as of this encounter Care Teams Waxer Tender Relationship Specialty Start Date End Date Torrey Kwok MD [address] [place] [address] [address] [place] [address] PCP - General Geriatric Medicine 04/25/24 documented as of this encounter
--- OUTSIDE RECORDS SUMMARY | 2025-01-07 14:21 | XMS_ITS | Encounter Summary ---
Author Organization [facility] Address [address] [place] [address] Care Team Providers Care Traveling Representative Name Role Phone Torrey Kwok MD Primary Care Provider [phone] Encounter Details Date Type Department Care Team (Late st Contact Info) Description 07/11/2024 Lab Requisition [facility] - Main Lab 299 [facility] [place] [address] Torrey Kwok MD [address] [place], [place] [phone] Chronic kidney disease, stage 3 unspecified (CMS/HCC [...] mmol/L LAB CHEMISTRY METHOD 07/11/2024 12:[address] [facility] CO2 26 21 - 32 mmol/L LAB CHEMISTRY METHOD 07/11/2024 12:[address] [facility] Anion Gap 8 3 - 11 LAB CHEMISTRY METHOD 07/11/2024 12:[address] [facility] Glucose 216(H) 70 - 100 mg/dL LAB CHEMISTRY METHOD 07/11/2024 12:[address] [facility] BUN 45(H) 5 - 25 mg/dL LAB CHEMISTRY METHOD 07/11/2024 12:[address] [facility] Creatinine 1.38(H) 0.50 - 1.10 mg/dL LAB CHEMISTRY METHOD 07/11/2024 12:[address] [facility] eGFR 37(L) >=60 mL/min/1. 73m2 LAB CHEMISTRY METHOD 07/11/2024 12:[address] [facility] Comment:Calculation based on the Chronic Kidney Disease Epidemiology Collaboration (CKD-EPI) equation refit without adjustment for race. BUN/Creatinine Ratio 32.6 LAB CHEMISTRY METHOD 07/11/2024 12:[address] [facility] Calcium 8.8 8.5 - 10.5 mg/dL LAB CHEMISTRY METHOD 07/11/2024 12:[address] [facility] Blood Venous blood specimen / Unknown Venipuncture / Unknown 07/11/2024 6:58 AM EDT 07/11/2024 10:53 AM EDT us Torrey Kwok MD LAB BLOOD ORDERABLES Final Resul t [facility] [address] [place] [address], [place] [phone] documented in this encounter Visit Diagnoses Diagnosis Chronic kidney disease, stage 3 unspecified (CMS/HCC V24, CMS/HCC V28) documented in this encounter Additional Health Concerns Infection Onset Date Last Indicated Resolved Time Respiratory Rule-Out 07/12/2024 07/11/2024 025 11:25 AM EDT documented as of this encounter Care Teams Traveling Representative Relationship Specialty Start Date End Date Torrey Kwok MD [address] [place] [address] [address] [place] [address] PCP - General Geriatric Medicine 04/25/24 documented as of this encounter
--- OUTSIDE RECORDS SUMMARY | 2025-01-07 14:21 | XMS_ITS | Encounter Summary ---
Author Organization [facility] Address [address] [place] [phone] Care Team Providers Care Avionics Supervisor Name Role Phone Torrey Kwok MD Primary Care Provider [phone] Encounter Details Date Type Department Care Team (Late st Contact Info) Description 11/08/2024 Lab Requisition [facility] - Main Lab [address] [facility] [place] [address] Torrey Kwok MD [address] [place], [place] [id number] Type 2 diabetes mellitus with diabetic chronic [...] Associated Diagnosis Comments COMPLETE BLOOD COUNT Routine 11/10/2024 9:37 AM EDT 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, CMS/HCC V28) Essential (primary) hypertension Heart failure, unspecified (CMS/HCC V24, CMS/HCC V28) 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 V24, CMS/HCC V28) BASIC METABOLIC PANEL Routine 11/10/2024 9:37 AM EDT Type 2 diabetes mellitus with diabetic chronic kidney disease ([facility] V24, [facility] V28) Essential (primary) hypertension Heart failure, unspecified ([facility] V24, [facility] V28) Type 2 diabetes mellitus with unspecified diabetic retinopathy without macular edema ([facility] V24, [facility] V28) documented in this encounter Results * (ABNORMAL) Complete blood count (11/10/2024 9:37 AM EDT) [facility] WBC 7.4 4.8 - 10.8 K/mcL LAB HEMETOLOGY METHOD 11/10/2024 1:[address] [facility] RBC 3.30(L) 3.80 - 4.80 M/mcL LAB HEMETOLOGY METHOD 11/10/2024 1:[address] [facility] Hemoglobin 10.3(L) 11.5 - 16.0 g/dL LAB HEMETOLOGY METHOD 11/10/2024 1:[address] [facility] Hematocrit 33.5(L) 35.0 - 47.0 % LAB HEMETOLOGY METHOD 11/10/2024 1:[address] [facility] MCV 101.2(H) 79.0 - 98.0 FL LAB HEMETOLOGY METHOD 11/10/2024 1:[address] [facility] MCH 31.1 27.0 - 32.0 pcg LAB HEMETOLOGY METHOD 11/10/2024 1:[address] [facility] MCHC 30.7(L) 32.0 - 37.0 g/dL LAB HEMETOLOGY METHOD 11/10/2024 1:[address] [facility] RDW 18.3(H) 11.0 - 15.0 % LAB HEMETOLOGY METHOD 11/10/2024 1:[address] [facility] Platelets 308 130 - 400 K/mcL LAB HEMETOLOGY METHOD 11/10/2024 1:22 PM EDT [facility] MPV 10.5 7.0 - 11.0 FL LAB HEMETOLOGY METHOD 11/10/2024 1:22 PM EDT [facility] NRBC 0.0 <1.0 % LAB HEMETOLOGY METHOD 11/10/2024 1:22 PM EDT [facility] NRBC Absolute 0.00 <0.10 K/mcL LAB HEMETOLOGY METHOD 11/10/2024 1:22 PM EDT [facility] Blood Venous blood specimen / Unknown Venipuncture / Unknown 11/10/2024 9:37 AM EDT 11/10/2024 11:17 AM EDT us Torrey Kwok MD LAB BLOOD ORDERABLES Final Resul t [facility] [address] [place] [address], * (ABNORMAL) Basic metabolic panel (11/10/2024 9:37 AM EDT) Sodium 136 133 - 145 mmol/L LAB CHEMISTRY METHOD 11/10/2024 1:[address] [facility] Potassium 3.8 3.5 - 5.5 mmol/L LAB CHEMISTRY METHOD 11/10/2024 1:[address] [facility] Chloride 103 96 - 110 mmol/L LAB CHEMISTRY METHOD 11/10/2024 1:[address] [facility] CO2 26 21 - 32 mmol/L LAB CHEMISTRY METHOD 11/10/2024 1:[address] [facility] Anion Gap 7 3 - 11 LAB CHEMISTRY METHOD 11/10/2024 1:[address] [facility] Glucose 246(H) 70 - 100 mg/dL LAB CHEMISTRY METHOD 11/10/2024 1:[address] [facility] BUN 28(H) 5 - 25 mg/dL LAB CHEMISTRY METHOD 11/10/2024 1:18 PM EDT [facility] Creatinine 1.22(H) 0.50 - 1.10 mg/dL LAB CHEMISTRY METHOD 11/10/2024 1:18 PM EDT [facility] eGFR 43(L) >=60 mL/min/1. 73m2 LAB CHEMISTRY METHOD 11/10/2024 1:18 PM EDT [facility] Comment:Calculation based on the Chronic Kidney Disease Epidemiology Collaboration (CKD-EPI) equation refit without adjustment for race. BUN/Creatinine Ratio 23.0 LAB CHEMISTRY METHOD 11/10/2024 1:18 PM EDT [facility] Calcium 8.9 8.5 - 10.5 mg/dL LAB CHEMISTRY METHOD 11/10/2024 1:18 PM EDT [facility] Blood Venous blood specimen / Unknown Venipuncture / Unknown 11/10/2024 9:37 AM EDT 11/10/2024 11:17 AM EDT Torrey Kwok MD LAB BLOOD ORDERABLES Final Resul t [facility] [address] [place] [address], documented in this encounter Visit Diagnoses Diagnosis 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, CMS/HCC V28) Essential (primary) hypertension Unspecified essential hypertension Heart failure, unspecified (CMS/HCC V24, CMS/HCC V28) Heart failure, unspecified 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 V24, CMS/HCC V28) documented in this encounter Care Teams Avionics Supervisor Relationship Specialty Start Date End Date Torrey Kwok MD [address] [place] [address] [address] [place] [address] PCP - General Geriatric Medicine 04/25/24 documented as of this encounter
--- OUTSIDE RECORDS SUMMARY | 2025-01-07 14:21 | XMS_ITS | Encounter Summary ---
Author Organization [facility] Address [address] [place] [phone] Care Team Providers Care Secretary Board Of Commissioners Name Role Phone Torrey Kwok MD Primary Care Provider [phone] Encounter Details Date Type Department Care Team (Late st Contact Info) Description 11/22/2024 Lab Requisition [facility] - Main Lab 299 [facility] [place] [address] Torrey Kwok MD [address] [place], [place] [phone] Type 2 diabetes mellitus with diabetic chronic [...] Associated Diagnosis Comments COMPLETE BLOOD COUNT Routine 11/24/2024 9:52 AM EDT 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, CMS/HCC V28) Essential (primary) hypertension Heart failure, unspecified (CMS/HCC V24, CMS/HCC V28) 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 V24, CMS/HCC V28) BASIC METABOLIC PANEL Routine 11/24/2024 9:52 AM EDT Type 2 diabetes mellitus with diabetic chronic kidney disease ([facility] V24, [facility] V28) Essential (primary) hypertension Heart failure, unspecified ([facility] V24, [facility] V28) 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 ([facility] V24, [facility] V28) documented in this encounter Results * (ABNORMAL) Complete blood count (11/24/2024 9:52 AM EDT) [facility] WBC 7.4 4.8 - 10.8 K/mcL LAB HEMETOLOGY METHOD 11/24/2024 12:[address] [facility] RBC 3.10(L) 3.80 - 4.80 M/mcL LAB [facility] Hemoglobin 9.8(L) 11.5 - 16.0 g/dL LAB HEMETOLOGY METHOD 11/24/2024 12:[address] [facility] Hematocrit 31.9(L) 35.0 - 47.0 % LAB [facility]EM[facility]OLOGY METHOD [facility] MCV 102.9(H) 79.0 - 98.0 FL LAB HEMETOLOGY METHOD 11/24[facility]2024 [facility] MCH 31.6 27.0 - 32.0 pcg LAB HEMETOLOGY METHOD 11/24/2024 12:[address] [facility] MCHC 30.7(L) 32.0 - 37.0 g/dL LAB HEMETOLOGY METHOD 11/24[facility]2024 [facility] RDW 17.1(H) 11.0 - 15.0 % LAB HEMETOLOGY METHOD 11/24/2024 12:48 PM [facility] Platelets 278 130 - 400 K/mcL LAB HEMETOLOGY METHOD 11/24/2024 12:[address] [facility] MPV 10.4 7.0 - 11.0 FL LAB HEMETOLOGY METHOD 11/24/2024 12:[address] [facility] NRBC 0.0 <1.0 % LAB HEMETOLOGY METHOD 11/24/2024 12:[address] [facility] NRBC Absolute 0.00 <0.10 K/mcL LAB HEMETOLOGY METHOD 11/24/2024 12:[address] [facility] Blood Venous blood specimen / Unknown Venipuncture / Unknown 11/24/2024 9:52 AM EDT 11/24/2024 11:01 AM EDT us Torrey Kwok MD LAB BLOOD ORDERABLES Final Resul t [facility] [address] [place] [address], * (ABNORMAL) Basic metabolic panel (11/24/2024 9:52 AM EDT) Sodium 138 133 - 145 mmol/L LAB CHEMISTRY METHOD 11/24/2024 4:19 PM [facility] Potassium 3.9 3.5 - 5.5 mmol/L LAB CHEMISTRY METHOD 11/24/2024 4:19 PM [facility] Chloride 103 96 - 110 mmol/L LAB CHEMISTRY METHOD 11/24/2024 4:19 PM [facility] CO2 31 21 - 32 mmol/L LAB CHEMISTRY METHOD 11/24/2024 4:19 PM [facility] Anion Gap 4 3 - 11 LAB CHEMISTRY METHOD 11/24/2024 4:19 PM [facility] Glucose 255(H) 70 - 100 mg/dL LAB CHEMISTRY METHOD 11/24/2024 4:19 PM [facility] BUN 28(H) 5 - 25 mg/dL LAB CHEMISTRY METHOD 11/24/2024 4:[address] [facility] Creatinine 1.24(H) 0.50 - 1.10 mg/dL LAB CHEMISTRY METHOD 11/24/2024 4:[address] [facility] eGFR 42(L) >=60 mL/min/1. 73m2 LAB CHEMISTRY METHOD 11/24/2024 4:[address] [facility] Comment:Calculation based on the Chronic Kidney Disease Epidemiology Collaboration (CKD-EPI) equation refit without adjustment for race. BUN/Creatinine Ratio 22.6 LAB CHEMISTRY METHOD 11/24/2024 4:[address] [facility] Calcium 9.0 8.5 - 10.5 mg/dL LAB CHEMISTRY METHOD 11/24/2024 4:[address] [facility] Blood Venous blood specimen / Unknown Venipuncture / Unknown 11/24/2024 9:52 AM EDT 11/24/2024 11:01 AM EDT us Torrey Kwok MD LAB BLOOD ORDERABLES Final Resul t [facility] [address] [place] [address], documented in this encounter Visit Diagnoses Diagnosis 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, CMS/HCC V28) Essential (primary) hypertension Unspecified essential hypertension Heart failure, unspecified (CMS/HCC V24, CMS/HCC V28) Heart failure, unspecified 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
--- OUTSIDE RECORDS SUMMARY | 2025-01-07 14:21 | XMS_ITS | Encounter Summary ---
Author Organization [facility] Address [address] [place] [phone] Care Team Providers Care Seo Associate Name Role Phone Torrey Kwok MD Primary Care Provider [phone] Encounter Details Date Type Department Care Team (Late st Contact Info) Description 10/28/2024 Lab Requisition [facility] - Main Lab 299 [facility] [place] [address] Social History Tobacco Use Types Packs/Day Years [...] on filedocumented in this encounter Care Teams Seo Associate Relationship Specialty Start Date End Date Torrey Kwok MD [address] [place] [address] PCP - General Geriatric Medicine 04/25/24 documented as of this encounter
--- OUTSIDE RECORDS SUMMARY | 2025-01-07 14:21 | XMS_ITS | Encounter Summary ---
Author Organization [facility] Address [address] [place] [phone] Care Team Providers Care Book Store Associate Name Role Phone Torrey Kwok MD Primary Care Provider Encounter Details Date Type Department Care Team (Late st Contact Info) Description 09/12/2024 Lab Requisition [facility] - Main Lab 299 [facility] [place] [address] Torrey Kwok MD [address] [place], [place] [phone] Type 2 diabetes mellitus with diabetic chronic [...] Associated Diagnosis Comments COMPLETE BLOOD COUNT Routine 09/15/2024 6:09 AM EDT 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, CMS/HCC V28) Essential (primary) hypertension Heart failure, unspecified (CMS/HCC V24, CMS/HCC V28) BASIC METABOLIC PANEL Routine 09/15/2024 6:09 AM EDT 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, CMS/HCC V28) Essential (primary) hypertension Heart failure, unspecified (CMS/HCC V24, CMS/HCC V28) documented in this encounter Results * (ABNORMAL) Complete blood count (09/15/2024 6:09 AM EDT) [facility] Signature WBC 6.5 4.8 - 10.8 K/mcL LAB HEMETOLOGY METHOD 09/15/2024 2:36 PM EDT [facility] RBC 3.70(L) 3.80 - 4.80 M/mcL LAB HEMETOLOGY METHOD 09/15/2024 2:36 PM EDT [facility] Hemoglobin 11.5 11.5 - 16.0 g/dL LAB HEMETOLOGY METHOD 09/15/2024 2:36 PM EDT [facility] Hematocrit 36.4 35.0 - 47.0 % LAB HEMETOLOGY METHOD 09/15/2024 2:36 PM EDT [facility] MCV 99.5(H) 79.0 - 98.0 FL LAB HEMETOLOGY METHOD 09/15/2024 2:36 PM EDT [facility] MCH 31.4 27.0 - 32.0 pcg LAB HEMETOLOGY METHOD 09/15/2024 2:36 PM EDT [facility] MCHC 31.6(L) 32.0 - 37.0 g/dL LAB HEMETOLOGY METHOD 09/15/2024 2:36 PM EDT [facility] RDW 16.9(H) 11.0 - 15.0 % LAB HEMETOLOGY METHOD 09/15/2024 2:36 PM EDT [facility] Platelets 299 130 - 400 K/mcL LAB HEMETOLOGY METHOD 09/15/2024 2:36 PM EDT [facility] MPV 10.6 7.0 - 11.0 FL LAB HEMETOLOGY METHOD 09/15/2024 2:36 PM EDT [facility] NRBC 0.0 <1.0 % LAB HEMETOLOGY METHOD 09/15/2024 2:36 PM EDT [facility] NRBC Absolute 0.00 <0.10 K/mcL LAB HEMETOLOGY METHOD 09/15/2024 2:36 PM [facility] Blood Venous blood specimen / Unknown Venipuncture / Unknown 09/15/2024 6:09 AM EDT 09/15/2024 11:09 AM EDT us Torrey Kwok MD LAB BLOOD ORDERABLES Final Resul t [facility] [address] [place] [address], * (ABNORMAL) Basic metabolic panel (09/15/2024 6:09 AM EDT) Sodium 137 133 - 145 mmol/L LAB CHEMISTRY METHOD 09/15/2024 12:42 PM [facility] Potassium 3.9 3.5 - 5.5 mmol/L LAB CHEMISTRY METHOD 09/15/2024 12:42 PM [facility] Chloride 99 96 - 110 mmol/L LAB CHEMISTRY METHOD 09/15/2024 12:42 PM [facility] CO2 27 21 - 32 mmol/L LAB CHEMISTRY METHOD 09/15/2024 12:42 PM [facility] Anion Gap 11 3 - 11 LAB CHEMISTRY METHOD 09/15/2024 12:42 PM [facility] Glucose 318(H) 70 - 100 mg/dL LAB CHEMISTRY METHOD 09/15/2024 12:42 PM [facility] BUN 30(H) 5 - 25 mg/dL LAB CHEMISTRY METHOD 09/15/2024 12:42 PM [facility] Creatinine 1.23(H) 0.50 - 1.10 mg/dL LAB CHEMISTRY METHOD 09/15/2024 12:42 PM [facility] eGFR 42(L) >=60 mL/min/1. 73m2 LAB CHEMISTRY METHOD 09/15/2024 12:42 PM EDT [facility] Comment:Calculation based on the Chronic Kidney Disease Epidemiology Collaboration (CKD-EPI) equation refit without adjustment for race. BUN/Creatinine Ratio 24.4 LAB CHEMISTRY METHOD 09/15/2024 12:42 PM EDT [facility] Calcium 8.4(L) 8.5 - 10.5 mg/dL LAB CHEMISTRY METHOD 09/15/2024 12:42 PM EDT [facility] Blood Venous blood specimen / Unknown Venipuncture / Unknown 09/15/2024 6:09 AM EDT 09/15/2024 11:09 AM EDT Torrey Kwok MD LAB BLOOD ORDERABLES Final Resul t [facility] [address] [place] [address], documented in this encounter Visit Diagnoses Diagnosis 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, CMS/HCC V28) Essential (primary) hypertension Unspecified essential hypertension Heart failure, unspecified (CMS/HCC V24, CMS/HCC V28) Heart failure, unspecified documented in this encounter Care Teams Book Store Associate Relationship Specialty Start Date End Date Torrey Kwok MD [address] [place] [address] [address] [place] [address] PCP - General Geriatric Medicine 04/25/24 documented as of this encounter
--- OUTSIDE RECORDS SUMMARY | 2025-01-07 14:21 | XMS_ITS | Encounter Summary ---
Author Organization [facility] Address [address] [place] [phone] Care Team Providers Care Implant Coordinator Name Role Phone Torrey Kwok MD Primary Care Provider [phone] Encounter Details Date Type Department Care Team (Late st Contact Info) Description 07/11/2024 Lab Requisition [facility] - Main Lab 299 [facility] [employer] [place] [address] Torrey Kwok MD [address] [place], [place] [phone] Type 2 diabetes mellitus with diabetic chronic [...] documented as of this encounter Care Teams Implant Coordinator Relationship Specialty Start Date End Date Torrey Kwok MD [address] [place], [place] [phone] PCP - General Geriatric Medicine 04/25/24 documented as of this encounter
--- OUTSIDE RECORDS SUMMARY | 2025-01-07 14:21 | XMS_ITS | Encounter Summary ---
Author Organization [facility] Address [address] [place] [phone] Care Team Providers Care Director Radiation Oncology Name Role Phone Torrey Kwok MD Primary Care Provider [phone] Encounter Details Date Type Department Care Team (Late st Contact Info) Description 09/19/2024 Lab Requisition [facility] - Main Lab 299 [facility] [place] [address] Torrey Kwok MD [address] [place], [place] [phone] Type 2 diabetes mellitus with diabetic chronic [...] Associated Diagnosis Comments COMPLETE BLOOD COUNT Routine 09/22/2024 6:43 AM EDT 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, CMS/HCC V28) Essential (primary) hypertension Heart failure, unspecified (CMS/HCC V24, CMS/HCC V28) 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 V24, CMS/HCC V28) BASIC METABOLIC PANEL Routine 09/22/2024 6:43 AM EDT Type 2 diabetes mellitus with diabetic chronic kidney disease ([facility] V24, [facility] V28) Essential (primary) hypertension Heart failure, unspecified ([facility] V24, [facility] V28) Type 2 diabetes mellitus with unspecified diabetic retinopathy without macular edema ([facility] V24, [facility] V28) documented in this encounter Results * (ABNORMAL) Basic metabolic panel (09/22/2024 6:43 AM EDT) Sodium 126(L) 133 - 145 mmol/L LAB CHEMISTRY METHOD 09/22/2024 2:17 PM [facility] Potassium 4.6 3.5 - 5.5 mmol/L LAB CHEMISTRY METHOD 09/22/2024 2:17 PM [facility] Chloride 90(L) 96 - 110 mmol/L LAB CHEMISTRY METHOD 09/22/2024 2:17 PM [facility] CO2 23 21 - 32 mmol/L LAB CHEMISTRY METHOD 09/22/2024 2:17 PM [facility] Anion Gap 13(H) 3 - 11 LAB CHEMISTRY METHOD 09/22/2024 2:17 PM [facility] Glucose 602(HH) 70 - 100 mg/dL LAB CHEMISTRY METHOD 09/22/2024 2:17 PM [facility] BUN 49(H) 5 - 25 mg/dL LAB CHEMISTRY METHOD 09/22/2024 2:17 PM [facility] Creatinine 1.76(H) 0.50 - 1.10 mg/dL LAB CHEMISTRY METHOD 09/22/2024 2:17 PM [facility] eGFR 28(L) >=60 mL/min/1. 73m2 LAB CHEMISTRY METHOD 09/22/2024 2:17 PM [facility] Comment:Calculation based on the Chronic Kidney Disease Epidemiology Collaboration (CKD-EPI) equation refit without adjustment for race. BUN/Creatinine Ratio 27.8 LAB CHEMISTRY METHOD 09/22/2024 2:17 PM EDT [facility] Calcium 8.7 8.5 - 10.5 mg/dL LAB CHEMISTRY METHOD 09/22/2024 2:17 PM EDT [facility] Blood Venous blood specimen / Unknown Venipuncture / Unknown 09/22/2024 6:43 AM EDT 09/22/2024 11:59 AM EDT Torrey Kwok MD LAB BLOOD ORDERABLES Final Resul t [facility] [address] [place] [address], * (ABNORMAL) Complete blood count (09/22/2024 6:43 AM EDT) WBC 8.0 4.8 - 10.8 K/mcL LAB HEMETOLOGY METHOD 09/22/2024 1:20 PM EDT [facility] RBC 4.10 3.80 - 4.80 M/mcL LAB HEMETOLOGY METHOD 09/22/2024 1:20 PM EDT [facility] Hemoglobin 12.7 11.5 - 16.0 g/dL LAB HEMETOLOGY METHOD 09/22/2024 1:20 PM EDT [facility] Hematocrit 39.4 35.0 - 47.0 % LAB HEMETOLOGY METHOD 09/22/2024 1:20 PM EDT [facility] MCV 97.0 79.0 - 98.0 FL LAB HEMETOLOGY METHOD 09/22/2024 1:20 PM EDT [facility] MCH 31.3 27.0 - 32.0 pcg LAB HEMETOLOGY METHOD 09/22/2024 1:20 PM EDT [facility] MCHC 32.2 32.0 - 37.0 g/dL LAB HEMETOLOGY METHOD 09/22/2024 1:20 PM EDT [facility] RDW 17.1(H) 11.0 - 15.0 % LAB HEMETOLOGY METHOD 09/22/2024 1:20 PM EDT [facility] Platelets 282 130 - 400 K/mcL LAB HEMETOLOGY METHOD 09/22/2024 1:20 PM EDT [facility] MPV 11.3(H) 7.0 - 11.0 FL LAB HEMETOLOGY METHOD 09/22/2024 1:20 PM EDT [facility] NRBC 0.0 <1.0 % LAB HEMETOLOGY METHOD 09/22/2024 1:20 PM EDT [facility] NRBC Absolute 0.00 <0.10 K/mcL LAB HEMETOLOGY METHOD 09/22/2024 1:20 PM EDT [facility] Blood Venous blood specimen / Unknown Venipuncture / Unknown 09/22/2024 6:43 AM EDT 09/22/2024 11:59 AM EDT Torrey Kwok MD LAB BLOOD ORDERABLES Final Resul t [facility] [address] [place] [address], documented in this encounter Visit Diagnoses Diagnosis 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, CMS/HCC V28) Essential (primary) hypertension Unspecified essential hypertension Heart failure, unspecified (CMS/HCC V24, CMS/HCC V28) Heart failure, unspecified 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 V24, CMS/HCC V28) documented in this encounter Care Teams Director Radiation Oncology Relationship Specialty Start Date End Date Torrey Kwok MD [address] [place] [address] [address] [place] [address] PCP - General Geriatric Medicine 04/25/24 documented as of this encounter
--- OUTSIDE RECORDS SUMMARY | 2025-01-07 14:21 | XMS_ITS | Encounter Summary ---
Author Organization [facility] Address [address] [place] [phone] Care Team Providers Care Emergency Room Clerk Name Role Phone Torrey Kwok MD Primary Care Provider [phone] Encounter Details Date Type Department Care Team (Late st Contact Info) Description 10/25/2024 Lab Requisition [facility] - Main Lab 299 [facility] [place] [address] Torrey Kwok MD [address] [place], [place] [id number] Type 2 diabetes mellitus with diabetic chronic [...] Associated Diagnosis Comments COMPLETE BLOOD COUNT Routine 10/27/2024 6:16 AM EDT 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, CMS/HCC V28) Essential (primary) hypertension Heart failure, unspecified (CMS/HCC V24, CMS/HCC V28) 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 V24, CMS/HCC V28) BASIC METABOLIC PANEL Routine 10/27/2024 6:16 AM EDT Type 2 diabetes mellitus with diabetic chronic kidney disease [place] [place] [facility] [place]28[place] Essential (primary) hypertension Heart failure, unspecified ([facility] [place], [facility] V28) 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 ([facility] [place], [facility] V28) documented in this encounter Results * (ABNORMAL) Complete blood count (10/27/2024 6:16 AM EDT) [facility] WBC 7.0 4.8 - 10.8 K/mcL LAB HEMETOLOGY METHOD 10/27/2024 10:21 AM [facility] RBC 3.20(L) 3.80 - 4.80 M/mcL LAB HEMETOLOGY METHOD 10/27/2024 10:21 AM [facility] Hemoglobin 10.2(L) 11.5 - 16.0 g/dL LAB HEMETOLOGY METHOD 10/27/2024 10:21 AM [facility] Hematocrit 31.8(L) 35.0 - 47.0 % LAB HEMETOLOGY METHOD 10/27/2024 10:21 AM [facility] MCV 100.0(H) 79.0 - 98.0 FL LAB HEMETOLOGY METHOD 10/27/2024 10:21 AM [facility] MCH 32.1(H) 27.0 - 32.0 pcg LAB HEMETOLOGY METHOD 10/27/2024 10:21 AM [facility] MCHC 32.1 32.0 - 37.0 g/dL LAB HEMETOLOGY METHOD 10/27/2024 10:21 AM [facility] RDW 18.6(H) 11.0 - 15.0 % LAB HEMETOLOGY METHOD 10/27/2024 10:21 AM [facility] Platelets 291 130 - 400 K/mcL LAB HEMETOLOGY METHOD 10/27/2024 10:[address] [facility] MPV 10.8 7.0 - 11.0 FL LAB HEMETOLOGY METHOD 10/27/2024 10:[address] [facility] NRBC 0.0 <1.0 % LAB HEMETOLOGY METHOD 10/27/2024 10:[address] [facility] NRBC Absolute 0.00 <0.10 K/mcL LAB HEMETOLOGY METHOD 10/27/2024 10:[address] [facility] Blood Venous blood specimen / Unknown Venipuncture / Unknown 10/27/2024 6:16 AM EDT 10/27/2024 10:08 AM EDT us Torrey Kwok MD LAB BLOOD ORDERABLES Final Resul t [facility] [address] [place] [address], * (ABNORMAL) Basic metabolic panel (10/27/2024 6:16 AM EDT) Sodium 135 133 - 145 mmol/L LAB CHEMISTRY METHOD 10/27/2024 12:05 PM [facility] Potassium 4.3 3.5 - 5.5 mmol/L LAB CHEMISTRY METHOD 10/27/2024 12:05 PM [facility] Chloride 99 96 - 110 mmol/L LAB CHEMISTRY METHOD 10/27/2024 12:05 PM [facility] CO2 28 21 - 32 mmol/L LAB CHEMISTRY METHOD 10/27/2024 12:05 PM [facility] Anion Gap 8 3 - 11 LAB CHEMISTRY METHOD 10/27/2024 12:05 PM [facility] Glucose 175(H) 70 - 100 mg/dL LAB CHEMISTRY METHOD 10/27/2024 12:05 PM [facility] BUN 37(H) 5 - 25 mg/dL LAB CHEMISTRY METHOD 10/27/2024 12:[address] [facility] Creatinine 1.35(H) 0.50 - 1.10 mg/dL LAB CHEMISTRY METHOD 10/27/2024 12:[address] [facility] eGFR 38(L) >=60 mL/min/1. 73m2 LAB CHEMISTRY METHOD 10/27/2024 12:[address] [facility] Comment:Calculation based on the Chronic Kidney Disease Epidemiology Collaboration (CKD-EPI) equation refit without adjustment for race. BUN/Creatinine Ratio 27.4 LAB CHEMISTRY METHOD 10/27/2024 12:[address] [facility] Calcium 8.6 8.5 - 10.5 mg/dL LAB CHEMISTRY METHOD 10/27/2024 12:[address] [facility] Blood Venous blood specimen / Unknown Venipuncture / Unknown 10/27/2024 6:16 AM EDT 10/27/2024 10:08 AM EDT us Torrey Kwok MD LAB BLOOD ORDERABLES Final Resul t [facility] [address] [place] [address], documented in this encounter Visit Diagnoses Diagnosis 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, CMS/HCC V28) Essential (primary) hypertension Unspecified essential hypertension Heart failure, unspecified (CMS/HCC V24, CMS/HCC V28) Heart failure, unspecified 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
--- OUTSIDE RECORDS SUMMARY | 2025-01-07 14:21 | XMS_ITS | Encounter Summary ---
Author Organization [facility] Address [address] [place] [phone] Care Team Providers Care Brand Marketing Coordinator Name Role Phone Torrey Kwok MD Primary Care Provider [phone] Encounter Details Date Type Department Care Team (Late st Contact Info) Description 08/23/2024 Lab Requisition [facility] - Main Lab 299 [facility] [place] [address] Torrey Kwok MD [address] [place], [place] [id number] Type 2 diabetes mellitus with diabetic chronic [...] Associated Diagnosis Comments COMPLETE BLOOD COUNT Routine 08/25/2024 8:58 AM EDT 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, CMS/HCC V28) Essential (primary) hypertension Heart failure, unspecified (CMS/HCC V24, CMS/HCC V28) 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 V24, CMS/HCC V28) BASIC METABOLIC PANEL Routine 08/25/2024 8:58 AM EDT Type 2 diabetes mellitus with diabetic chronic kidney disease ([facility] V24, [facility] V28) Essential (primary) hypertension Heart failure, unspecified ([facility] V24, [facility] V28) 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 Potassium 4.0 3.5 - 5.5 mmol/L LAB CHEMISTRY METHOD 08/25/2024 12:[address] [facility] Chloride 101 96 - 110 mmol/L LAB CHEMISTRY METHOD 08/25/2024 12:[address] [facility] CO2 27 21 - 32 mmol/L LAB CHEMISTRY METHOD 08/25/2024 12:[address] [facility] Anion Gap 7 3 - 11 LAB CHEMISTRY METHOD 08/25/2024 12:[address] [facility] Glucose 278(H) 70 - 100 mg/dL LAB CHEMISTRY METHOD 08/25/2024 12:[address] [facility] BUN 29(H) 5 - 25 mg/dL LAB CHEMISTRY METHOD 08/25/2024 12:[address] [facility] Creatinine 1.11(H) 0.50 - 1.10 mg/dL LAB CHEMISTRY METHOD 08/25/2024 12:[address] [facility] eGFR 48(L) >=60 mL/min/1. 73m2 LAB CHEMISTRY METHOD 08/25/2024 12:[address] [facility] Comment:Calculation based on the Chronic Kidney Disease Epidemiology Collaboration (CKD-EPI) equation refit without adjustment for race. BUN/Creatinine Ratio 26.1 LAB CHEMISTRY METHOD 08/25/2024 12:46 PM EDT [facility] Calcium 8.8 8.5 - 10.5 mg/dL LAB CHEMISTRY METHOD 08/25/2024 12:46 PM EDT [facility] Blood Venous blood specimen / Unknown Venipuncture / Unknown 08/25/2024 8:58 AM EDT 08/25/2024 10:57 AM EDT us Torrey Kwok MD LAB BLOOD ORDERABLES Final Resul t [facility] [address] [place] [address], * (ABNORMAL) Complete blood count (08/25/2024 8:58 AM EDT) WBC 5.1 4.8 - 10.8 K/mcL LAB HEMETOLOGY METHOD [facility]24 [facility] RBC 3.70(L) 3.80 - 4.80 M/[facility] LAB HEMETOLOGY METHOD 08/25/2024 1:39 PM EDT [facility] Hemoglobin 11.8 11.5 - 16.0 g/dL LAB HEMETOLOGY METHOD 08/25/2024 1:39 PM EDT [facility] Hematocrit 37.4 35.0 - 47.0 % LAB HEMETOLOGY METHOD 08/25/2024 1:39 PM EDT [facility] MCV 100.0(H) 79.0 - 98.0 FL LAB HEMETOLOGY METHOD 08/25/2024 1:39 PM EDT [facility] MCH 31.6 27.0 - 32.0 pcg LAB HEMETOLOGY METHOD 08/25/2024 1:39 [facility] MCHC 31.6(L) 32.0 - 37.0 g/dL LAB HEMETOLOGY METHOD 08/25/2024 1:39 PM EDT [facility] RDW 15.9(H) 11.0 - 15.0 % LAB HEMETOLOGY METHOD 08/25/2024 1:39 PM EDT [facility] Platelets 270 130 - 400 K/mcL LAB HEMETOLOGY METHOD 08/25/2024 1:39 PM EDT [facility] MPV 10.8 7.0 - 11.0 FL LAB HEMETOLOGY METHOD 08/25/2024 1:39 PM EDT [facility] NRBC 0.0 <1.0 % LAB HEMETOLOGY METHOD 08/25/2024 1:39 PM EDT [facility] NRBC Absolute 0.00 <0.10 K/mcL LAB HEMETOLOGY METHOD 08/25/2024 1:39 PM EDT [facility] Blood Venous blood specimen / Unknown Venipuncture / Unknown 08/25/2024 8:58 AM EDT 08/25/2024 10:57 AM EDT us Torrey Kwok MD LAB BLOOD ORDERABLES Final Resul t [facility] [address] [place] [address], documented in this encounter Visit Diagnoses Diagnosis 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, CMS/HCC V28) Essential (primary) hypertension Unspecified essential hypertension Heart failure, unspecified (CMS/HCC V24, CMS/HCC V28) Heart failure, unspecified 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 V24, [facility]/HCC V28) documented in this encounter Care Teams Brand Marketing Coordinator Relationship Specialty Start Date End Date Torrey Kwok MD [address] [place] [address] [address] [place] [address] PCP - General Geriatric Medicine 04/25/24 documented as of this encounter
--- OUTSIDE RECORDS SUMMARY | 2025-01-07 14:21 | XMS_ITS | Encounter Summary ---
Author Organization [facility] Address [address] [place] [address] Care Team Providers Care Campus Recruiting Coordinator Name Role Phone Torrey Kwok MD Primary Care Provider [phone] Encounter Details Date Type Department Care Team (Late st Contact Info) Description 07/31/2024 Lab Requisition [facility] - Main Lab [address] [facility] [place] [address] Torrey Kwok MD [address] [place], [place] [phone] Chronic diastolic (congestive) heart failure (CMS/HCC V24, CMS/HCC V28) Social History Tobacco [...] Associated Diagnosis Comments COMPLETE BLOOD COUNT Routine 08/01/2024 8:17 AM EDT Chronic diastolic (congestive) heart failure (CMS/HCC V24, CMS/HCC V28) BASIC METABOLIC PANEL Routine 08/01/2024 8:17 AM EDT Chronic diastolic (congestive) heart failure (CMS/HCC V24, CMS/HCC V28) documented in this encounter Results * (ABNORMAL) Complete blood count (08/01/2024 8:17 AM EDT) WBC 6.3 4.8 - 10.8 K/[facility] LAB HEMETOLOGY METHOD 08/01/2024 10:58 AM [facility] RBC 3.30(L) 3.80 - 4.80 M/mcL LAB HEMETOLOGY METHOD 08/01/2024 10:58 AM [facility] Hemoglobin 10.6(L) 11.5 - 16.0 g/dL LAB HEMETOLOGY METHOD 08/01/2024 10:58 AM [facility] Hematocrit 32.5(L) 35.0 - 47.0 % LAB HEMETOLOGY METHOD 08/01/2024 10:58 AM [facility] MCV 99.1(H) 79.0 - 98.0 FL LAB HEMETOLOGY METHOD 08/01/2024 10:58 AM [facility] MCH 32.3(H) 27.0 - 32.0 pcg LAB HEMETOLOGY METHOD 08/01/2024 10:58 AM [facility] MCHC 32.6 32.0 - 37.0 g/dL LAB HEMETOLOGY METHOD 08/01/2024 10:58 AM [facility] RDW 16.4(H) 11.0 - 15.0 % LAB HEMETOLOGY METHOD 08/01/2024 10:58 AM [facility] Platelets 311 130 - 400 K/mcL LAB HEMETOLOGY METHOD 08/01/2024 10:58 AM [facility] MPV 10.6 7.0 - 11.0 FL LAB HEMETOLOGY METHOD 08/01/2024 10:58 AM [facility] NRBC 0.0 <1.0 % LAB HEMETOLOGY METHOD 08/01/2024 10:58 AM [facility] NRBC Absolute 0.00 <0.10 K/mcL LAB HEMETOLOGY METHOD 08/01/2024 10:58 AM [facility] Blood Venous blood specimen / Unknown Venipuncture / Unknown 08/01/2024 8:17 AM EDT 08/01/2024 9:02 AM EDT us Torrey Kwok MD LAB BLOOD ORDERABLES Final Resul t [facility] [address] [place] [address], * (ABNORMAL) Basic metabolic panel (08/01/2024 8:17 AM EDT) [facility] Sodium 139 133 - 145 mmol/L LAB CHEMISTRY METHOD 08/01/2024 11:14 AM [facility] Potassium 3.9 3.5 - 5.5 mmol/L LAB CHEMISTRY METHOD 08/01/2024 11:14 AM [facility] Chloride 103 96 - 110 mmol/L LAB CHEMISTRY METHOD 08/01/2024 11:14 AM [facility] CO2 27 21 - 32 mmol/L LAB CHEMISTRY METHOD 08/01/2024 11:14 AM [facility] Anion Gap 9 3 - 11 LAB CHEMISTRY METHOD 08/01/2024 11:14 AM [facility] Glucose 125(H) 70 - 100 mg/dL LAB CHEMISTRY METHOD 08/01/2024 11:14 AM [facility] BUN 32(H) 5 - 25 mg/dL LAB CHEMISTRY METHOD 08/01/2024 11:14 AM [facility] Creatinine 1.35(H) 0.50 - 1.10 mg/dL LAB CHEMISTRY METHOD 08/01/2024 11:14 AM [facility] eGFR 38(L) >=60 mL/min/1. 73m2 LAB CHEMISTRY METHOD 08/01/2024 11:14 AM [facility] Comment:Calculation based on the Chronic Kidney Disease Epidemiology Collaboration (CKD-EPI) equation refit without adjustment for race. BUN/Creatinine Ratio 23.7 LAB CHEMISTRY METHOD 08/01/2024 11:14 AM EDT [facility] Calcium 8.4(L) 8.5 - 10.5 mg/dL LAB CHEMISTRY METHOD 08/01/2024 11:14 AM EDT [facility] Blood Venous blood specimen / Unknown Venipuncture / Unknown 08/01/2024 8:17 AM EDT 08/01/2024 9:02 AM EDT Torrey Kwok MD LAB BLOOD ORDERABLES Final Resul t [facility] [address] [place] [address], documented in this encounter Visit Diagnoses Diagnosis Chronic diastolic (congestive) heart failure (CMS/HCC V24, CMS/HCC V28) documented in this encounter Care Teams Campus Recruiting Coordinator Relationship Specialty Start Date End Date Torrey Kwok MD [address] [place] [address] [address] [place] [address] PCP - General Geriatric Medicine 04/25/24 documented as of this encounter
--- OUTSIDE RECORDS SUMMARY | 2025-01-07 14:21 | XMS_ITS | Encounter Summary ---
Author Organization [facility] Address [address] [place] [phone] Care Team Providers Care Transcripter Name Role Phone Torrey Kwok MD Primary Care Provider [phone] Encounter Details Date Type Department Care Team (Late st Contact Info) Description 10/17/2024 Lab Requisition [facility] - Main Lab 299 [facility] [place] [address] Torrey Kwok MD [address] [place], [place] [phone] Type 2 diabetes mellitus with diabetic chronic [...] Associated Diagnosis Comments COMPLETE BLOOD COUNT Routine 10/20/2024 5:58 AM [...] diabetic chronic kidney disease ([facility] V24, [facility] V28) Essential (primary) hypertension Heart failure, unspecified ([facility] V24, [facility] V28) 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 ([facility] V24, [facility] V28) documented in this encounter Results * (ABNORMAL) Basic metabolic panel (10/20/2024 5:58 AM EDT) Sodium 135 133 - 145 mmol/L LAB CHEMISTRY METHOD 10/20/2024 5:05 PM [facility] Potassium 4.5 3.5 - 5.5 mmol/L LAB CHEMISTRY METHOD 10/20/2024 5:05 PM [facility] Chloride 99 96 - 110 mmol/L LAB CHEMISTRY METHOD 10/20/2024 5:05 PM [facility] CO2 26 21 - 32 mmol/L LAB CHEMISTRY METHOD 10/20/2024 5:05 PM [facility] Anion Gap 10 3 - 11 LAB CHEMISTRY METHOD 10/20/2024 5:05 PM [facility] Glucose 339(H) 70 - 100 mg/dL LAB CHEMISTRY METHOD 10/20/2024 5:05 PM [facility] BUN 43(H) 5 - 25 mg/dL LAB CHEMISTRY METHOD 10/20/2024 5:05 PM [facility] Creatinine 1.48(H) 0.50 - 1.10 mg/dL LAB CHEMISTRY METHOD 10/20/2024 5:05 PM [facility] eGFR 34(L) >=60 mL/min/1. 73m2 LAB CHEMISTRY METHOD 10/20/2024 5:05 PM [facility] Comment:Calculation based on the Chronic Kidney Disease Epidemiology Collaboration (CKD-EPI) equation refit without adjustment for race. BUN/Creatinine Ratio 29.1 LAB CHEMISTRY METHOD 10/20/2024 5:05 PM EDT [facility] Calcium 8.6 8.5 - 10.5 mg/dL LAB CHEMISTRY METHOD 10/20/2024 5:05 PM EDT [facility] Blood Venous blood specimen / Unknown Venipuncture / Unknown 10/20/2024 5:58 AM EDT 10/20/2024 5:05 PM EDT us Torrey Kwok MD LAB BLOOD ORDERABLES Final Resul t [facility] [address] [place] [address], * (ABNORMAL) Complete blood count (10/20/2024 5:58 AM EDT) WBC 6.8 4.8 - 10.8 K/mcL LAB [facility]Y [facility] 3.20(L) 3.80 - 4.80 M/mcL LAB HEMETOLOGY METHOD 10/20/2024 12:33 PM [facility] Hemoglobin 9.9(L) 11.5 - 16.0 g/dL LAB HEMETOLOGY METHOD 10/20/2024 12:33 PM [facility] Hematocrit 32.1(L) 35.0 - 47.0 % LAB HEMETOLOGY METHOD 10/20/2024 12:33 PM EDT [facility] MCV 100.0(H) 79.0 - 98.0 FL LAB HEMETOLOGY METHOD [facility]/20[facility]24 12[facility] MCH 30.8 27.0 - 32.0 pcg LAB HEMETOLOGY METHOD 10/20/2024 12:33 PM [facility] MCHC 30.8(L) 32.0 - 37.0 g/dL LAB HEMETOLOGY METHOD 10/20/2024 12:33 PM EDT [facility] RDW 18.8(H) 11.0 - 15.0 % LAB HEMETOLOGY METHOD 10/20/2024 12:33 PM EDT [facility] Platelets 289 130 - 400 K/mcL LAB HEMETOLOGY METHOD 10/20/2024 12:33 PM EDT [facility] MPV 11.0 7.0 - 11.0 FL LAB HEMETOLOGY METHOD 10/20/2024 12:33 PM EDT [facility] NRBC 0.0 <1.0 % LAB HEMETOLOGY METHOD 10/20/2024 12:33 PM EDT [facility] NRBC Absolute 0.00 <0.10 K/mcL LAB HEMETOLOGY METHOD 10/20/2024 12:33 PM EDT [facility] Blood Venous blood specimen / Unknown Venipuncture / Unknown 10/20/2024 5:58 AM EDT 10/20/2024 11:44 AM EDT us Torrey Kwok MD LAB BLOOD ORDERABLES Final Resul t [facility] [address] [place] [address], documented in this encounter Visit Diagnoses Diagnosis 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, CMS/HCC V28) Essential (primary) hypertension Unspecified essential hypertension Heart failure, unspecified (CMS/HCC V24, CMS/HCC V28) Heart failure, unspecified 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
--- OUTSIDE RECORDS SUMMARY | 2025-01-07 14:21 | XMS_ITS | Encounter Summary ---
Author Organization Address [address] [place] [phone] Care Team Providers Care Federal Mediation Commissioner Name Role Phone Torrey Kwok MD Primary Care Provider [phone] Encounter Details Date Type Department Care Team (Late st Contact Info) Description 11/01/[address] [facility] - Main Lab [address] [facility] [place] [address] Torrey Kwok MD [address] [place], [place] [id number] Type 2 diabetes mellitus with diabetic chronic [...] Associated Diagnosis Comments COMPLETE BLOOD COUNT Routine 11/03/2024 5:57 AM [...] diabetic chronic kidney disease ([facility] V24, [facility] V28) Essential (primary) hypertension Heart failure, unspecified ([facility] V24, [facility] V28) Type 2 diabetes mellitus with unspecified diabetic retinopathy without macular edema ([facility] V24, [facility] V28) documented in this encounter Results * (ABNORMAL) Basic metabolic panel (11/03/2024 5:57 AM EDT) Sodium 135 133 - 145 mmol/L LAB CHEMISTRY METHOD 11/03/2024 11:32 AM [facility] Potassium 4.1 3.5 - 5.5 mmol/L LAB CHEMISTRY METHOD 11/03/2024 11:32 AM [facility] Chloride 99 96 - 110 mmol/L LAB CHEMISTRY METHOD 11/03/2024 11:32 AM [facility] CO2 28 21 - 32 mmol/L LAB CHEMISTRY METHOD 11/03/2024 11:32 AM [facility] Anion Gap 8 3 - 11 LAB CHEMISTRY METHOD 11/03/2024 11:32 AM [facility] Glucose 150(H) 70 - 100 mg/dL LAB CHEMISTRY METHOD 11/03/2024 11:32 AM [facility] BUN 35(H) 5 - 25 mg/dL LAB CHEMISTRY METHOD 11/03/2024 11:32 AM [facility] Creatinine 1.19(H) 0.50 - 1.10 mg/dL LAB CHEMISTRY METHOD 11/03/2024 11:32 AM [facility] eGFR 44(L) >=60 mL/min/1. 73m2 LAB CHEMISTRY METHOD 11/03/2024 11:32 AM [facility] Comment:Calculation based on the Chronic Kidney Disease Epidemiology Collaboration (CKD-EPI) equation refit without adjustment for race. BUN/Creatinine Ratio 29.4 LAB CHEMISTRY METHOD 11/03/2024 11:32 AM EDT [facility] Calcium 9.1 8.5 - 10.5 mg/dL LAB CHEMISTRY METHOD 11/03/2024 11:32 AM T [facility] Blood Venous blood specimen / Unknown 11/03/2024 5:57 AM EDT 11/03/2024 10:16 AM EDT us Torrey Kwok MD LAB BLOOD ORDERABLES Final Resul t [facility] [address] [place] [address], * (ABNORMAL) Complete blood count (11/03/2024 5:57 AM EDT) WBC 7.6 4.8 - 10.8 K/mcL LAB HEMETOLOGY METHOD 11/03/2024 11:26 AM [facility] RBC 3.20(L) 3.80 - 4.80 M/mcL LAB HEMETOLOGY METHOD 11/03/2024 11:26 AM [facility] Hemoglobin 10.0(L) 11.5 - 16.0 g/dL LAB HEMETOLOGY METHOD 11/03/2024 11:26 AM [facility] Hematocrit 31.0(L) 35.0 - 47.0 % LAB HEMETOLOGY METHOD 11/03/2024 11:26 AM [facility] MCV 97.8 79.0 - 98.0 FL LAB HEMETOLOGY METHOD 11/03/2024 11:26 AM [facility] MCH 31.5 27.0 - 32.0 pcg LAB HEMETOLOGY METHOD 11/03/2024 11:26 AM [facility] MCHC 32.3 32.0 - 37.0 g/dL LAB HEMETOLOGY METHOD 11/03/2024 11:26 AM [facility] RDW 18.5(H) 11.0 - 15.0 % LAB HEMETOLOGY METHOD 11/03/2024 11:26 AM EDT [facility] Platelets 279 130 - 400 K/mcL LAB HEMETOLOGY METHOD 11/03/2024 11:26 AM EDT [facility] MPV 10.7 7.0 - 11.0 FL LAB HEMETOLOGY METHOD 11/03/2024 11:26 AM EDT [facility] NRBC 0.0 <1.0 % LAB HEMETOLOGY METHOD 11/03/2024 11:26 AM EDT [facility] NRBC Absolute 0.00 <0.10 K/mcL LAB HEMETOLOGY METHOD 11/03/2024 11:26 AM EDT [facility] Blood Venous blood specimen / Unknown Venipuncture / Unknown 11/03/2024 5:57 AM EDT 11/03/2024 10:16 AM EDT us Torrey Kwok MD LAB BLOOD ORDERABLES Final Resul t [facility] [address] [place] [address], documented in this encounter Visit Diagnoses Diagnosis 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, [facility]/HCC V28) Essential (primary) hypertension Unspecified essential hypertension Heart failure, unspecified ([facility]/HCC V24, [facility]/H[facility] V28) Heart failure, unspecified Type 2 diabetes mellitus with unspecified diabetic retinopathy without macular edema ([facility]/HCC V24, [facility]/HCC V28) documented in this encounter Care Teams Federal Mediation Commissioner Relationship Specialty Start Date End Date Torrey Kwok MD [address] [place] [address] [address] [place] [address] PCP - General Geriatric Medicine 04/25/24 documented as of this encounter
--- OUTSIDE RECORDS SUMMARY | 2025-01-07 14:21 | XMS_ITS | Encounter Summary ---
Author Organization [facility] Address [address] [place] [phone] Care Team Providers Care Cosmetic Surgeon Name Role Phone Torrey Kwok MD Primary Care Provider [phone] Encounter Details Date Type Department Care Team (Late st Contact Info) Description 08/22/[address] [facility] - Main Lab 299 [facility] [place] [address] Torrey Kwok MD [address] [place], [place] [phone] Chronic kidney disease, stage 3 unspecified (CMS/HCC V24, CMS/HCC V28); Hypothyroidism, unspecified Social History Tobacco Use Types Packs/Day [...] Procedure Name Priority Date/Time Associated Diagnosis Comments THYROID STIMULATING HORMONE Routine 08/22/2024 5:24 AM EDT Chronic kidney disease, stage 3 unspecified (CMS/HCC V24, [facility]/HCC V28) Hypothyroidism, unspecified THYROXINE TOTAL Routine 08/22/2024 5:24 AM EDT Chronic kidney disease, stage 3 unspecified (CMS/HCC V24, [facility]/HCC V28) Hypothyroidism, unspecified BASIC METABOLIC PANEL Routine 08/22/2024 5:24 AM EDT Chronic kidney disease, stage 3 unspecified (CMS/HCC V24, CMS/HCC V28) Hypothyroidism, unspecified documented in this encounter Results * (ABNORMAL) Thyroxine total (08/22/2024 5:24 AM EDT) T4, Total 4.0(L) 4.5 - 10.9 mcg/dL LAB CHEMISTRY METHOD 08/22/2024 4:28 PM EDT [facility] Blood Venous blood specimen / Unknown Venipuncture / Unknown 08/22/2024 5:24 AM EDT 08/22/2024 9:20 AM EDT us Torrey Kwok MD LAB BLOOD ORDERABLES Final Resul t Performing Organization Address City/[facility]/ZIP Co de Phone Number [facility] [address] [place] [address], [place] [phone] * (ABNORMAL) Thyroid stimulating hormone (08/22/2024 5:24 AM EDT) Pathologist [facility] TSH 27.27(H) 0.40 - 4.00 mcIU/mL LAB CHEMISTRY METHOD 08/22/2024 11:34 AM EDT [facility] Blood Venous blood specimen / Unknown Venipuncture / Unknown 08/22/2024 5:24 AM EDT 08/22/2024 9:20 AM EDT us Torrey Kwok MD LAB BLOOD ORDERABLES Final Resul t Performing Organization Address City/[facility]/ZIP Co de Phone Number [facility] [address] [place] [address], [place] [phone] * (ABNORMAL) Basic metabolic panel (08/22/2024 5:24 AM EDT) [facility] Sodium 138 133 - 145 mmol/L LAB CHEMISTRY METHOD 08/22/2024 10:34 AM EDT [facility] Potassium 4.0 3.5 - 5.5 mmol/L LAB CHEMISTRY METHOD 08/22/2024 10:34 AM EDT [facility] Chloride 104 96 - 110 mmol/L LAB CHEMISTRY METHOD 08/22/2024 10:34 AM [facility] CO2 26 21 - 32 mmol/L LAB CHEMISTRY METHOD 08/22/2024 10:34 AM [facility] Anion Gap 8 3 - 11 LAB CHEMISTRY METHOD 08/22/2024 10:34 AM [facility] Glucose 162(H) 70 - 100 mg/dL LAB CHEMISTRY METHOD 08/22/2024 10:34 AM [facility] BUN 42(H) 5 - 25 mg/dL LAB CHEMISTRY METHOD 08/22/2024 10:34 AM [facility] Creatinine 1.17(H) 0.50 - 1.10 mg/dL LAB CHEMISTRY METHOD 08/22/2024 10:34 AM [facility] eGFR 45(L) >=60 mL/min/1. 73m2 LAB CHEMISTRY METHOD 08/22/2024 10:34 AM [facility] Comment:Calculation based on the Chronic Kidney Disease Epidemiology Collaboration (CKD-EPI) equation refit without adjustment for race. BUN/Creatinine Ratio 35.9 LAB CHEMISTRY METHOD 08/22/2024 10:34 AM [facility] Calcium 8.6 8.5 - 10.5 mg/dL LAB CHEMISTRY METHOD 08/22/2024 10:34 AM [facility] Blood Venous blood specimen / Unknown Venipuncture / Unknown 08/22/2024 5:24 AM EDT 08/22/2024 9:20 AM EDT us Torrey Kwok MD LAB BLOOD ORDERABLES Final Resul t [facility] [address] [place] [address], documented in this encounter Visit Diagnoses Diagnosis Chronic kidney disease, stage 3 unspecified (CMS/HCC V24, CMS/HCC V28) Hypothyroidism, unspecified documented in this encounter Care Teams Cosmetic Surgeon Relationship Specialty Start Date End Date Torrey Kwok MD [address] [place] [address] [address] [place] [address] PCP - General Geriatric Medicine 04/25/24 documented as of this encounter
--- OUTSIDE RECORDS SUMMARY | 2025-01-07 14:21 | XMS_ITS | Encounter Summary ---
Author Organization [facility] Address [address] [place] [address] Care Team Providers Care Punchboard Assembler Name Role Phone Torrey Kwok MD Primary Care Provider [phone] Encounter Details Date Type Department Care Team (Late st Contact Info) Description 05/05/2024 Lab Requisition [facility] Lab [address] [place] [address] Torrey Kwok MD [address] [place], [place] [phone] Chronic kidney disease, stage 3 unspecified (CMS/HCC [...] LAB CHEMISTRY METHOD 05/05/2024 2:[address] [facility] Potassium 5.0 3.5 - 5.5 [...] [facility] Comment:Calculation based on the Chronic Kidney Disease Epidemiology Collaboration (CKD-EPI) equation refit without adjustment for race. BUN/Creatinine Ratio 21.3 LAB [...] Resul t [facility] [address] [place] [address], documented in this encounter Visit Diagnoses Diagnosis Chronic kidney disease, stage 3 unspecified (CMS/[facility] V24, [facility] V28) Type 2 diabetes mellitus with diabetic chronic kidney disease ([facility] V24, [facility] V28) documented in this encounter Additional Health Concerns Infection Onset Date Last Indicated Resolved Time Respiratory Rule-Out 07/12/2024 07/11/2024 025 11:25 AM EDT documented as of this encounter Care Teams Punchboard Assembler Relationship Specialty Start Date End Date Torrey Kwok MD [address] [place] [address] [address] [place] [address] PCP - General Geriatric Medicine 04/25/24 documented as of this encounter
--- OUTSIDE RECORDS SUMMARY | 2025-01-07 14:21 | XMS_ITS | Encounter Summary ---
Author Organization [facility] Address [address] [place] [phone] Care Team Providers Care Biometrics Technician Name Role Phone Torrey Kwok MD Primary Care Provider [phone] Encounter Details Date Type Department Care Team (Late st Contact Info) Description 07/18/2024 Lab Requisition [facility] - Main Lab [address] 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 ([facility] V24, [facility] V28) documented in this encounter Results * (ABNORMAL) Basic metabolic panel (07/21/2024 7:11 AM EDT) Sodium 139 133 - 145 mmol/L LAB CHEMISTRY METHOD 07/21/2024 1:01 PM [facility] Potassium 3.0(L) 3.5 - 5.5 mmol/L LAB CHEMISTRY METHOD 07/21/2024 1:01 PM [facility] Chloride 99 96 - 110 mmol/L LAB CHEMISTRY METHOD 07/21/2024 1:01 PM [facility] CO2 34(H) 21 - 32 mmol/L LAB CHEMISTRY METHOD 07/21/2024 1:01 PM [facility] Anion Gap 6 3 - 11 LAB CHEMISTRY METHOD 07/21/2024 1:01 PM [facility] Glucose 46(L) 70 - 100 mg/dL LAB CHEMISTRY METHOD 07/21/2024 1:01 PM [facility] BUN 33(H) 5 - 25 mg/dL LAB CHEMISTRY METHOD 07/21/2024 1:01 PM [facility] Creatinine 1.06 0.50 - 1.10 mg/dL LAB CHEMISTRY METHOD 07/21/2024 1:01 PM [facility] eGFR 51(L) >=60 mL/min/1. 73m2 LAB CHEMISTRY METHOD 07/21/2024 1:01 PM [facility] Comment:Calculation based on the Chronic Kidney Disease Epidemiology Collaboration (CKD-EPI) equation refit without adjustment for race. BUN/Creatinine Ratio 31.1 LAB CHEMISTRY METHOD 07/21/2024 1:01 PM EDT [facility] Calcium 8.5 8.5 - 10.5 mg/dL LAB CHEMISTRY METHOD 07/21/2024 1:01 PM EDT [facility] Blood Venous blood specimen / Unknown Venipuncture / Unknown 07/21/2024 7:11 AM EDT 07/21/2024 12:26 PM EDT us Torrey Kwok MD LAB BLOOD ORDERABLES Final Resul t [facility] [address] [place] [address], * (ABNORMAL) Complete blood count (07/21/2024 7:11 AM EDT) WBC 7.8 4.8 - 10.8 K/mcL LAB HEMETOLOGY METHOD 07/21/2024 1:34 PM [facility] RBC 3.30(L) 3.80 - 4.80 M/mcL LAB HEMETOLOGY METHOD 07/21/2024 1:34 PM EDT [facility] Hemoglobin 10.6(L) 11.5 - 16.0 g/dL LAB HEMETOLOGY METHOD 07/21/2024 1:34 PM [facility] Hematocrit 33.4(L) 35.0 - 47.0 % LAB HEMETOLOGY METHOD 07/21/2024 1:34 PM EDT [facility] MCV 100.6(H) 79.0 - 98.0 FL LAB HEMETOLOGY METHOD 07/21/2024 1:34 PM EDT [facility] MCH 31.9 27.0 - 32.0 pcg LAB HEMETOLOGY METHOD 07/21/2024 1:34 PM [facility] MCHC 31.7(L) 32.0 - 37.0 g/dL LAB HEMETOLOGY METHOD 07/21/2024 1:34 PM EDT [facility] RDW 17.4(H) 11.0 - 15.0 % LAB HEMETOLOGY METHOD 07/21/2024 1:34 PM EDT [facility] Platelets 283 130 - 400 K/mcL LAB HEMETOLOGY METHOD 07/21/2024 1:34 PM EDT [facility] MPV 10.9 7.0 - 11.0 FL LAB HEMETOLOGY METHOD 07/21/2024 1:34 PM EDT [facility] NRBC 0.0 <1.0 % LAB HEMETOLOGY METHOD 07/21/2024 1:34 PM EDT [facility] NRBC Absolute 0.00 <0.10 K/mcL LAB HEMETOLOGY METHOD 07/21/2024 1:34 PM EDT [facility] Blood Venous blood specimen / Unknown Venipuncture / Unknown 07/21/2024 7:11 AM EDT 07/21/2024 12:26 PM EDT us Torrey Kwok MD LAB BLOOD ORDERABLES Final Resul t [facility] [address] [place] [address], documented in this encounter Visit Diagnoses Diagnosis 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, CMS/HCC V28) Essential (primary) hypertension Unspecified essential hypertension Heart failure, unspecified (CMS/HCC V24, CMS/HCC V28) Heart failure, unspecified 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
--- OUTSIDE RECORDS SUMMARY | 2025-01-07 14:21 | XMS_ITS | Encounter Summary ---
Author Organization [facility] Address [address] [place] [phone] Care Team Providers Care Delivery Recruiter Name Role Phone Torrey Kwok MD Primary Care Provider [phone] Encounter Details Date Type Department Care Team (Late st Contact Info) Description 09/05/2024 Lab Requisition [facility] - Main Lab 299 [facility] [place] [address] Torrey Kwok MD [address] [place], [place] [phone] Type 2 diabetes mellitus with diabetic chronic [...] Associated Diagnosis Comments COMPLETE BLOOD COUNT Routine 09/08/2024 7:03 AM EDT 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, CMS/HCC V28) Essential (primary) hypertension Heart failure, unspecified (CMS/HCC V24, CMS/HCC V28) 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 V24, CMS/HCC V28) BASIC METABOLIC PANEL Routine 09/08/2024 7:03 AM EDT Type 2 diabetes mellitus with diabetic chronic kidney disease ([facility] V24, [facility] V28) Essential (primary) hypertension Heart failure, unspecified ([facility] V24, [facility] V28) 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 ([facility] V24, [facility] V28) documented in this encounter Results * (ABNORMAL) Complete blood count (09/08/2024 7:03 AM EDT) [facility] WBC 8.9 4.8 - 10.8 K/mcL LAB HEMETOLOGY METHOD 09/08/2024 11:16 AM [facility] RBC 3.70(L) 3.80 - 4.80 M/mcL LAB HEMETOLOGY METHOD 09/08/2024 11:16 AM [facility] Hemoglobin 11.6 11.5 - 16.0 g/dL LAB HEMETOLOGY METHOD 09/08/2024 11:16 AM [facility] Hematocrit 35.5 35.0 - 47.0 % LAB HEMETOLOGY METHOD 09/08/2024 11:16 AM [facility] MCV 97.0 79.0 - 98.0 FL LAB HEMETOLOGY METHOD 09/08/2024 11:16 AM [facility] MCH 31.7 27.0 - 32.0 pcg LAB HEMETOLOGY METHOD 09/08/2024 11:16 AM [facility] MCHC 32.7 32.0 - 37.0 g/dL LAB HEMETOLOGY METHOD 09/08/2024 11:16 AM [facility] RDW 16.2(H) 11.0 - 15.0 % LAB HEMETOLOGY METHOD 09/08/2024 11:16 AM [facility] Platelets 323 130 - 400 K/mcL LAB HEMETOLOGY METHOD 09/08/2024 11:16 AM [facility] MPV 10.3 7.0 - 11.0 FL LAB HEMETOLOGY METHOD 09/08/2024 11:16 AM EDT [facility] NRBC 0.0 <1.0 % [facility] 09/08/2024 11:16 AM EDT [facility] NRBC Absolute 0.00 <0.10 K/mcL LAB [facility] 09/08/2024 11:16 AM EDT [facility] Blood Venous blood specimen / Unknown Venipuncture / Unknown 09/08/2024 7:03 AM EDT 09/08/2024 10:18 AM EDT us Torrey Kwok MD LAB BLOOD ORDERABLES Final Resul t [facility] [address] [place] [address], * (ABNORMAL) Basic metabolic panel (09/08/2024 7:03 AM EDT) Sodium 137 133 - 145 mmol/L LAB CHEMISTRY METHOD 09/08/2024 11:08 AM [facility] Potassium 3.9 3.5 - 5.5 mmol/L LAB CHEMISTRY METHOD 09/08/2024 11:08 AM [facility] Chloride 99 96 - 110 mmol/L LAB CHEMISTRY METHOD 09/08/2024 11:08 AM [facility] CO2 27 21 - 32 mmol/L LAB CHEMISTRY METHOD 09/08/2024 11:08 AM [facility] Anion Gap 11 3 - 11 LAB CHEMISTRY METHOD 09/08/2024 11:08 AM [facility] Glucose 330(H) 70 - 100 mg/dL LAB CHEMISTRY METHOD 09/08/2024 11:08 AM [facility] BUN 24 5 - 25 mg/dL LAB CHEMISTRY METHOD 09/08/2024 11:08 AM EDT [facility] Creatinine 1.27(H) 0.50 - 1.10 mg/dL LAB CHEMISTRY METHOD 09/08/2024 11:08 AM EDT [facility] eGFR 41(L) >=60 mL/min/1. 73m2 LAB CHEMISTRY METHOD 09/08/2024 11:08 AM EDT [facility] Comment:Calculation based on the Chronic Kidney Disease Epidemiology Collaboration (CKD-EPI) equation refit without adjustment for race. BUN/Creatinine Ratio 18.9 LAB CHEMISTRY METHOD 09/08/2024 11:08 AM T [facility] Calcium 9.0 8.5 - 10.5 mg/dL LAB CHEMISTRY METHOD 09/08/2024 11:08 AM T [facility] Blood Venous blood specimen / Unknown Venipuncture / Unknown 09/08/2024 7:03 AM EDT 09/08/2024 10:18 AM EDT us Torrey Kwok MD LAB BLOOD ORDERABLES Final Resul t [facility] [address] [place] [address], documented in this encounter Visit Diagnoses Diagnosis Type 2 diabetes mellitus with diabetic chronic kidney disease ([facility] V24, [facility] V28) Essential (primary) hypertension Unspecified essential hypertension Heart failure, unspecified ([facility] V24, [facility] V28) Heart failure, unspecified 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
--- OUTSIDE RECORDS SUMMARY | 2025-01-07 14:21 | XMS_ITS | Encounter Summary ---
Author Organization [facility] Address [address] [place] [address] Care Team Providers Care Laundry Tub Maker Name Role Phone Torrey Kwok MD Primary Care Provider [phone] Encounter Details Date Type Department Care Team (Late st Contact Info) Description 04/25/2024 Lab Requisition [facility] - Main Lab [address] [facility] [place] [address] Torrey Kwok MD [address] [place], [place] [id number] Vitamin D deficiency, unspecified; Type 2 diabetes [...] Resul t [facility] [address] [place] [address], [place] [phone] * Thyroid stimulating hormone (04/25/2024 5:49 AM EST) [facility] TSH 3.04 0.40 - 4.00 mcIU/mL LAB CHEMISTRY METHOD 04/25/2024 10:35 AM EST [facility] Blood Venous blood specimen / Unknown Venipuncture / Unknown 04/25/2024 5:49 AM EST 04/25/2024 9:21 AM EST us Torrey Kwok MD LAB BLOOD ORDERABLES Final Resul t Performing Organization Address City/[facility]/ZIP Co de Phone Number [facility] [address] [place] [address], [place] [phone] * Folate (04/25/2024 5:49 AM EST) [facility] Folate 12.8 2.8 - 17.0 ng/ml LAB CHEMISTRY METHOD 04/25/2024 11:26 AM EST [facility] Blood Venous blood specimen / Unknown Venipuncture / Unknown 04/25/2024 5:49 AM EST 04/25/2024 9:21 AM EST us Torrey Kwok MD LAB BLOOD ORDERABLES Final Resul t [facility] [address] [place] [address], [place] [phone] * Vitamin B12 (04/25/2024 5:49 AM EST) [facility] Vitamin B-12 711 250 - 900 pcg/mL LAB CHEMISTRY METHOD 04/25/2024 11:26 AM EST [facility] Blood Venous blood specimen / Unknown Venipuncture / Unknown 04/25/2024 5:49 AM EST 04/25/2024 9:21 AM EST us Torrey Kwok MD LAB BLOOD ORDERABLES Final Resul t [facility] [address] [place] [address], [place] [phone] * (ABNORMAL) Hemoglobin A1c (04/25/2024 5:49 AM EST) Hemoglobin A1C 8.7(H) <6.5 % LAB CHEMISTRY METHOD 04/25/2024 1:33 PM EST [facility] Mean Bld Glu Estim. 203 mg/dL LAB CHEMISTRY METHOD 04/25/2024 1:33 PM [facility] Blood Venous blood specimen / Unknown Venipuncture / Unknown 04/25/2024 5:49 AM EST 04/25/2024 9:21 AM EST us Torrey Kwok MD LAB BLOOD ORDERABLES Final Resul t Performing Organization Address [facility]/ZIP Co de Phone Number [facility] [address] [place] [address], [place] [phone] * (ABNORMAL) Comprehensive metabolic panel (04/25/2024 5:49 AM EST) Pathologist [facility] Sodium 135 133 - 145 mmol/L LAB CHEMISTRY METHOD 04/25/2024 11:26 AM [facility] Potassium 4.0 3.5 - 5.5 mmol/L LAB CHEMISTRY METHOD 04/25/2024 11:26 AM EST [facility] Chloride 98 96 - 110 mmol/L LAB CHEMISTRY METHOD 04/25/2024 11:26 AM [facility] CO2 30 21 - 32 mmol/L LAB CHEMISTRY METHOD 04/25/2024 11:26 AM [facility] Anion Gap 7 3 - 11 LAB CHEMISTRY METHOD 04/25/2024 11:26 AM [facility] Glucose 290(H) 70 - 100 mg/dL LAB CHEMISTRY METHOD 04/25/2024 11:26 AM [facility] BUN 25 5 - 25 mg/dL LAB CHEMISTRY METHOD 04/25/2024 11:26 AM [facility] Creatinine 1.06 0.50 - 1.10 mg/dL LAB CHEMISTRY METHOD 04/25/2024 11:26 AM [facility] eGFR 51(L) >=60 mL/min/1. 73m2 LAB CHEMISTRY METHOD 04/25/2024 11:26 AM [facility] Comment:Calculation based on the Chronic Kidney Disease Epidemiology Collaboration (CKD-EPI) equation refit without adjustment for race. BUN/Creatinine Ratio 23.6 LAB CHEMISTRY METHOD 04/25/2024 11:26 AM [facility] Calcium 8.2(L) 8.5 - 10.5 mg/dL LAB CHEMISTRY METHOD 04/25/2024 11:26 AM [facility] AST (SGOT) 17 10 - 42 unit/L LAB CHEMISTRY METHOD 04/25/2024 11:26 AM [facility] ALT (SGPT) 16 10 - 60 unit/L LAB CHEMISTRY METHOD 04/25/2024 11:26 AM [facility] Alkaline Phosphatase 81 42 - 121 unit/L LAB CHEMISTRY METHOD 04/25/2024 11:26 AM [facility] Total Protein 5.3(L) 6.0 - 8.0 g/dL LAB CHEMISTRY METHOD 04/25/2024 11:26 AM [facility] Albumin 2.7(L) 3.2 - 5.0 g/dL LAB CHEMISTRY METHOD 04/25/2024 11:26 AM [facility] Total Bilirubin 1.2 0.0 - 1.4 mg/dL LAB CHEMISTRY METHOD 04/25/2024 11:26 AM [facility] Blood Venous blood specimen / Unknown Venipuncture / Unknown 04/25/2024 5:49 AM EST 04/25/2024 9:21 AM EST us Torrey Kwok MD LAB BLOOD ORDERABLES Final Resul t [facility] [address] [place] [address], [place] [phone] * (ABNORMAL) Complete blood count (04/25/2024 5:49 AM EST) WBC 7.7 4.8 - 10.8 K/mcL LAB HEMETOLOGY METHOD 04/25/2024 10:07 AM [facility] RBC 2.90(L) 3.80 - 4.80 M/mcL LAB HEMETOLOGY METHOD 04/25/2024 10:07 AM [facility] Hemoglobin 9.1(L) 11.5 - 16.0 g/dL LAB HEMETOLOGY METHOD 04/25/2024 10:07 AM [facility] Hematocrit 27.7(L) 35.0 - 47.0 % LAB HEMETOLOGY METHOD 04/25/2024 10:07 AM [facility] MCV 94.9 79.0 - 98.0 FL LAB HEMETOLOGY METHOD 04/25/2024 10:07 AM [facility] MCH 31.2 27.0 - 32.0 pcg LAB HEMETOLOGY METHOD 04/25/2024 10:07 AM [facility] MCHC 32.9 32.0 - 37.0 g/dL LAB HEMETOLOGY METHOD 04/25/2024 10:07 AM [facility] RDW 15.5(H) 11.0 - 15.0 % LAB HEMETOLOGY METHOD 04/25/2024 10:07 AM [facility] Platelets 214 130 - 400 K/mcL LAB HEMETOLOGY METHOD 04/25/2024 10:07 AM [facility] MPV 10.8 [...] Resul t [facility] [address] [place] [address], documented in this encounter Visit Diagnoses Diagnosis [...] documented as of this encounter Care Teams Laundry Tub Maker Relationship Specialty Start Date End Date Torrey Kwok MD [address] [place] [address] [address] [place] [address] PCP - General Geriatric Medicine 04/25/24 documented as of this encounter
--- OUTSIDE RECORDS SUMMARY | 2025-01-07 14:21 | XMS_ITS | Encounter Summary ---
Author Organization [facility] Address [address] [place] [address] Care Team Providers Care Board Finisher Name Role Phone Torrey Kwok MD Primary Care Provider [phone] Encounter Details Date Type Department Care Team (Late st Contact Info) Description 05/06/2024 Lab Requisition [facility] [address] [place] [address] Torrey Kwok MD [address] [place], [place] [id number] Type 2 diabetes mellitus without complications (CMS/HCC [...] LAB CHEMISTRY METHOD 05/07/2024 1:13 PM EST [facility] Potassium 4.1 3.5 - 5.5 mmol/L LAB CHEMISTRY METHOD 05/07/2024 1:13 PM [facility] Chloride 96 96 - 110 mmol/L LAB CHEMISTRY METHOD 05/07/2024 1:13 PM [facility] CO2 26 21 - 32 mmol/L LAB CHEMISTRY METHOD 05/07/2024 1:13 PM [facility] Anion Gap 8 3 - 11 LAB CHEMISTRY METHOD 05/07/2024 1:13 PM [facility] Glucose 271(H) 70 - 100 mg/dL LAB CHEMISTRY METHOD 05/07/2024 1:13 PM [facility] BUN 21 5 - 25 mg/dL LAB CHEMISTRY METHOD 05/07/2024 1:13 PM [facility] Creatinine 0.98 0.50 - 1.10 mg/dL LAB CHEMISTRY METHOD 05/07/2024 1:13 PM [facility] eGFR 56(L) >=60 mL/min/1. 73m2 LAB CHEMISTRY METHOD 05/07/2024 1:13 PM [facility] Comment:Calculation based on the Chronic Kidney Disease Epidemiology Collaboration (CKD-EPI) equation refit without adjustment for race. BUN/Creatinine Ratio 21.4 LAB CHEMISTRY METHOD 05/07/2024 1:13 PM [facility] Calcium 9.0 8.5 - 10.5 mg/dL LAB CHEMISTRY METHOD 05/07/2024 1:13 PM [facility] Blood Venous blood specimen / Unknown Venipuncture / Unknown 05/07/2024 8:42 AM EST 05/07/2024 11:51 AM EST us Torrey Kwok MD LAB BLOOD ORDERABLES Final Resul t [facility] [address] [place] [address], * (ABNORMAL) Complete blood count (05/07/2024 8:42 AM EST) [facility] WBC 9.1 4.8 - 10.8 K/mcL LAB HEMETOLOGY METHOD 05/07/2024 12:40 PM [facility] RBC 3.90 3.80 - 4.80 M/mcL LAB HEMETOLOGY METHOD 05/07/2024 12:40 PM [facility] Hemoglobin 12.4 11.5 - 16.0 g/dL LAB HEMETOLOGY METHOD 05/07/2024 12:40 PM [facility] Hematocrit 38.7 35.0 - 47.0 % LAB HEMETOLOGY METHOD 05/07/2024 12:40 PM [facility] MCV 99.2(H) 79.0 - 98.0 FL LAB HEMETOLOGY METHOD 05/07/2024 12:40 PM [facility] MCH 31.8 27.0 - 32.0 pcg LAB HEMETOLOGY METHOD 05/07/2024 12:40 PM [facility] MCHC 32.0 32.0 - 37.0 g/dL LAB HEMETOLOGY METHOD 05/07/2024 12:40 PM [facility] RDW 19.9(H) 11.0 - 15.0 % LAB HEMETOLOGY METHOD 05/07/2024 12:40 PM [facility] Platelets 384 130 - 400 K/mcL LAB HEMETOLOGY METHOD 05/07/2024 12:40 PM [facility] MPV 10.7 7.0 - 11.0 FL LAB HEMETOLOGY METHOD 05/07/2024 12:40 PM [facility] NRBC 0.0 <1.0 % LAB HEMETOLOGY METHOD 05/07/2024 12:40 PM [facility] NRBC Absolute 0.00 <0.10 K/mcL LAB HEMETOLOGY METHOD 05/07/2024 12:40 PM [facility] Blood Venous blood specimen / Unknown Venipuncture / Unknown 05/07/2024 8:42 AM EST 05/07/2024 11:51 AM EST Torrey Kwok MD LAB BLOOD ORDERABLES Final Resul t [facility] [address] [place] [address], documented in this encounter Visit Diagnoses Diagnosis Type 2 diabetes mellitus without complications (CMS/HCC V24, CMS/HCC V28) documented in this encounter Additional Health Concerns Infection Onset Date Last Indicated Resolved Time Respiratory Rule-Out 07/12/2024 07/11/2024 025 11:25 AM EDT documented as of this encounter Care Teams Board Finisher Relationship Specialty Start Date End Date Torrey Kwok MD [address] [place] [address] [address] [place] [address] PCP - General Geriatric Medicine 04/25/24 documented as of this encounter
--- OUTSIDE RECORDS SUMMARY | 2025-01-07 14:21 | XMS_ITS | Encounter Summary ---
Author Organization [facility] Address [address] [place] [id number] Care Team Providers Care Healthcare Architect Name Role Phone Torrey Kwok MD Primary Care Provider [phone] Encounter Details Date Type Department Care Team (Late st Contact Info) Description 08/08/2024 Lab Requisition [facility] - Main Lab 299 [facility] [place] [address] Torrey Kwok MD [address] [place], [place] [phone] Type 2 diabetes mellitus with diabetic chronic [...] Associated Diagnosis Comments COMPLETE BLOOD COUNT Routine 08/11/2024 5:15 AM EDT 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, CMS/HCC V28) Essential (primary) hypertension Heart failure, unspecified (CMS/HCC V24, CMS/HCC V28) 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 V24, CMS/HCC V28) BASIC METABOLIC PANEL Routine 08/11/2024 5:15 AM EDT Type 2 diabetes mellitus with diabetic chronic kidney disease ([facility] V24, [facility] V28) Essential (primary) hypertension Heart failure, unspecified ([facility] V24, [facility] V28) 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 ([facility] V24, [facility] V28) documented in this encounter Results * (ABNORMAL) Basic metabolic panel (08/11/2024 5:15 AM EDT) Pathologist [facility] Sodium 137 133 - 145 mmol/L LAB CHEMISTRY METHOD 08/11/2024 2:34 PM [facility] Potassium 4.0 3.5 - 5.5 mmol/L LAB CHEMISTRY METHOD 08/11/2024 2:34 PM [facility] Chloride 99 96 - 110 mmol/L LAB CHEMISTRY METHOD 08/11/2024 2:34 PM [facility] CO2 30 21 - 32 mmol/L LAB CHEMISTRY METHOD 08/11/2024 2:34 PM [facility] Anion Gap 8 3 - 11 LAB CHEMISTRY METHOD 08/11/2024 2:34 PM [facility] Glucose 259(H) 70 - 100 mg/dL LAB CHEMISTRY METHOD 08/11/2024 2:34 PM [facility] BUN 41(H) 5 - 25 mg/dL LAB CHEMISTRY METHOD 08/11/2024 2:34 PM [facility] Creatinine 1.54(H) 0.50 - 1.10 mg/dL LAB CHEMISTRY METHOD 08/11/2024 2:34 PM [facility] eGFR 33(L) >=60 mL/min/1. 73m2 LAB CHEMISTRY METHOD 08/11/2024 2:34 PM [facility] Comment:Calculation based on the Chronic Kidney Disease Epidemiology Collaboration (CKD-EPI) equation refit without adjustment for race. BUN/Creatinine Ratio 26.6 LAB CHEMISTRY METHOD 08/11/2024 2:34 PM EDT [facility] Calcium 8.5 8.5 - 10.5 mg/dL LAB CHEMISTRY METHOD 08/11/2024 2:34 PM T [facility] Blood Venous blood specimen / Unknown Venipuncture / Unknown 08/11/2024 5:15 AM EDT 08/11/2024 12:58 PM EDT us Torrey Kwok MD LAB BLOOD ORDERABLES Final Resul t [facility] [address] [place] [address], * (ABNORMAL) Complete blood count (08/11/2024 5:15 AM EDT) WBC 6.1 4.8 - 10.8 K/mcL LAB HEMETOLOGY METHOD 08/11/2024 2:05 PM [facility] RBC 3.50(L) 3.80 - 4.80 M/mcL LAB HEMETOLOGY METHOD 08/11/2024 2:05 PM [facility] Hemoglobin 11.0(L) 11.5 - 16.0 g/dL LAB HEMETOLOGY METHOD 08/11/2024 2:05 PM [facility] Hematocrit 35.3 35.0 - 47.0 % LAB HEMETOLOGY METHOD 08/11/2024 2:05 PM [facility] MCV 101.4(H) 79.0 - 98.0 FL LAB HEMETOLOGY METHOD 08/11/2024 2:05 PM [facility] MCH 31.6 27.0 - 32.0 pcg LAB HEMETOLOGY METHOD 08/11/2024 2:05 PM [facility] MCHC 31.2(L) 32.0 - 37.0 g/dL LAB HEMETOLOGY METHOD 08/11/2024 2:05 PM EDT [facility] RDW 16.1(H) 11.0 - 15.0 % LAB HEMETOLOGY METHOD 08/11/2024 2:05 PM EDT [facility] Platelets 261 130 - 400 K/mcL LAB HEMETOLOGY METHOD 08/11/2024 2:05 PM EDT [facility] MPV 10.8 7.0 - 11.0 FL LAB HEMETOLOGY METHOD 08/11/2024 2:05 PM EDT [facility] NRBC 0.0 <1.0 % LAB HEMETOLOGY METHOD 08/11/2024 2:05 PM EDT [facility] NRBC Absolute 0.00 <0.10 K/mcL LAB HEMETOLOGY METHOD 08/11/2024 2:05 PM EDT [facility] Blood Venous blood specimen / Unknown Venipuncture / Unknown 08/11/2024 5:15 AM EDT 08/11/2024 12:58 PM EDT Torrey Kwok MD LAB BLOOD ORDERABLES Final Resul t [facility] [address] [place] [address], documented in this encounter Visit Diagnoses Diagnosis 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, CMS/HCC V28) Essential (primary) hypertension Unspecified essential hypertension Heart failure, unspecified (CMS/HCC V24, CMS/HCC V28) Heart failure, unspecified 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
--- OUTSIDE RECORDS SUMMARY | 2025-01-07 14:21 | XMS_ITS | Encounter Summary ---
Author Organization [facility] Address [address] [place] [address] Care Team Providers Care Technology Development Intern Name Role Phone Torrey Kwok MD Primary Care Provider [phone] Encounter Details Date Type Department Care Team (Late st Contact Info) Description 08/31/[address] [facility] - Main Lab 299 [facility] [place] [address] Torrey Kwok MD [address] [place], [place] [phone] Type 2 diabetes mellitus with diabetic chronic [...] Associated Diagnosis Comments COMPLETE BLOOD COUNT Routine 09/02/2024 7:40 AM EDT 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, CMS/HCC V28) Essential (primary) hypertension Heart failure, unspecified (CMS/HCC V24, CMS/HCC V28) BASIC METABOLIC PANEL Routine 09/02/2024 7:40 AM EDT 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, CMS/HCC V28) Essential (primary) hypertension Heart failure, unspecified (CMS/HCC V24, CMS/HCC V28) documented in this encounter Results * (ABNORMAL) Basic metabolic panel (09/02/2024 7:40 AM EDT) Sodium 133 133 - 145 mmol/L LAB CHEMISTRY METHOD 09/02/2024 12:54 PM [facility] Potassium 4.6 3.5 - 5.5 mmol/L LAB CHEMISTRY METHOD 09/02/2024 12:54 PM [facility] Chloride 102 96 - 110 mmol/L LAB CHEMISTRY METHOD 09/02/2024 12:54 PM [facility] CO2 19(L) 21 - 32 mmol/L LAB CHEMISTRY METHOD 09/02/2024 12:54 PM [facility] Anion Gap 12(H) 3 - 11 LAB CHEMISTRY METHOD 09/02/2024 12:54 PM [facility] Glucose 348(H) 70 - 100 mg/dL LAB CHEMISTRY METHOD 09/02/2024 12:54 PM [facility] BUN 27(H) 5 - 25 mg/dL LAB CHEMISTRY METHOD 09/02/2024 12:54 PM [facility] Creatinine 1.07 0.50 - 1.10 mg/dL LAB CHEMISTRY METHOD 09/02/2024 12:54 PM [facility] eGFR 50(L) >=60 mL/min/1. 73m2 LAB CHEMISTRY METHOD 09/02/2024 12:54 PM [facility] Comment:Calculation based on the Chronic Kidney Disease Epidemiology Collaboration (CKD-EPI) equation refit without adjustment for race. BUN/Creatinine Ratio 25.2 LAB CHEMISTRY METHOD 09/02/2024 12:54 PM [facility] Calcium 8.8 8.5 - 10.5 mg/dL LAB CHEMISTRY METHOD 09/02/2024 12:54 PM [facility] Blood Venous blood specimen / Unknown Venipuncture / Unknown 09/02/2024 7:40 AM EDT 09/02/2024 10:50 AM EDT Torrey Kwok MD LAB BLOOD ORDERABLES Final Resul t [facility] [address] [place] [address], * (ABNORMAL) Complete blood count (09/02/2024 7:40 AM EDT) Pathologist [facility] WBC 8.8 4.8 - 10.8 K/mcL LAB HEMETOLOGY METHOD 09/02/2024 11:[address] [facility] RBC 3.60(L) 3.80 - 4.80 M/mcL LAB HEMETOLOGY METHOD 09/02/2024 11:[address] [facility] Hemoglobin 11.6 11.5 - 16.0 g/dL LAB HEMETOLOGY METHOD 09/02/2024 11:[address] [facility] Hematocrit 37.5 35.0 - 47.0 % LAB HEMETOLOGY METHOD 09/02/2024 11:[address] [facility] MCV 103.3(H) 79.0 - 98.0 FL LAB HEMETOLOGY METHOD 09/02/2024 11:[address] [facility] MCH 32.0 27.0 - 32.0 pcg LAB HEMETOLOGY METHOD 09/02/2024 11:[address] [facility] MCHC 30.9(L) 32.0 - 37.0 g/dL LAB HEMETOLOGY METHOD 09/02/2024 11:[address] [facility] RDW 16.5(H) 11.0 - 15.0 % LAB HEMETOLOGY METHOD [facility]lets 261 130 - 400 K/mcL LAB HEMETOLOGY METHOD 09/02/2024 11:[address] [facility] MPV 10.7 7.0 - 11.0 FL LAB HEMETOLOGY METHOD 09/02/2024 11:[address] [facility] NRBC 0.0 <1.0 % [facility] 09/02/2024 11:[address] [facility] NRBC Absolute 0.00 <0.10 K/mcL LAB HEMETOLOGY METHOD 09/02/2024 11:[address] [facility] Blood Venous blood specimen / Unknown Venipuncture / Unknown 09/02/2024 7:40 AM EDT 09/02/2024 10:50 AM EDT Torrey Kwok MD LAB BLOOD ORDERABLES Final Resul t [facility] [address] [place] [address], documented in this encounter Visit Diagnoses Diagnosis 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, CMS/HCC V28) Essential (primary) hypertension Unspecified essential hypertension Heart failure, unspecified (CMS/HCC V24, CMS/HCC V28) Heart failure, unspecified documented in this encounter Care Teams Technology Development Intern Relationship Specialty Start Date End Date Torrey Kwok MD [address] [place] [address] [address] [place] [address] PCP - General Geriatric Medicine 04/25/24 documented as of this encounter
== END 2025-01-07 13:34 | disposition home or self-care (01) ==
LOC: HO.HCS 13:02
PROVIDERS: PCP Internal Medicine; Visit Provider Internal Medicine
DX: I50.42 Chronic combined systolic (congestive) and diastolic (congestive) heart failure (principal); I25.10 Atherosclerotic heart disease of native coronary artery without angina pectoris; I48.19 Other persistent atrial fibrillation; I10 Essential (primary) hypertension; E87.5 Hyperkalemia
CPT/HCPCS: 93010; 99214; G2211

== ENCOUNTER → 2025-01-07 13:01 | Outpatient (BNVA) | payer MEDICARE, SELFPAY | PROVIDERS: PCP Internal Medicine; Visit Provider Internal Medicine | DX: I50.42 Chronic combined systolic (congestive) and diastolic (congestive) heart failure (principal); I25.10 Atherosclerotic heart disease of native coronary artery without angina pectoris; I48.19 Other persistent atrial fibrillation; I10 Essential (primary) hypertension; E87.5 Hyperkalemia | CPT/HCPCS: 93005; 99212 ==

== ENCOUNTER 2025-02-12 21:51 | Inpatient (IN) | payer MEDICARE, SELFPAY ==
--- OUTSIDE RECORDS SUMMARY | 2019-08-30 10:18 | XMS_ITS | Encounter Summary ---
Author Organization [facility] Address [address] [place] [address] Phone Care Team Providers Care Academic Success Coordinator Name Role Phone Monique White MD Primary Care Provider [phone] Encounter Details Date Type Department Care Team (Late Contact Info) Description 08/30/2019 11:18 AM EDT Hospital Encounter [facility] [address] [place] [phone] Nguyen Victoria, QUALITY ASSURANCE TEST PROGRAM MANAGER [address] [place] [address] [email or web address] Social History Tobacco Use Types Packs/Day Years Used Date Smoking Tobacco: Former Cigarettes 1 7 1 953 - 6953 Passive Smoke Exposure: Past Smokeless Tobacco: Never [...] Care Team (Late st Contact Info) Description 03/25/2025 10:20 AM EST Office Visit [facility] [address] [place] [address] Ann Carrillo MD [address] [place] [phone] [email or web address] 06/18/2025 11:00 AM EDT Office Visit [facility] [address] [place] [address] Ann Carrillo MD [address] [place] [address] 09/15/2025 11:00 AM EDT Office Visit [facility] [address] [place] [address] Felicita Morgan PA-C [address] [place] [phone] documented as of this encounter Procedures Procedure [...] dislocation. 2. Osteopenia and osteoarthritis. POS - [id number] Narrative 08/30/2019 11:32 AM EDT HISTORY: As [...] dislocation. 2. Osteopenia and osteoarthritis. POS - [id number] Nguyen Victoria QUALITY ASSURANCE TEST PROGRAM MANAGER IMG XR UPPER EXTREMITY Final Result documented in this encounter Visit Diagnoses Not on filedocumented in this encounter Care Teams Academic Success Coordinator Relationship Specialty Start Date End Date Christopher, Monique Maciel MD [address] [place] [address] Drive [address] [place] [address] PCP - General Internal Medicine 08/30/19 documented as of this encounter Additional Source Comments The information contained in this document represents components of the legal health record. It is not the complete legal health record.[facility]
--- OUTSIDE RECORDS SUMMARY | 2022-09-10 11:20 | XMS_ITS | Encounter Summary ---
Author Organization [facility] Address [address] [facility] [address] [place] [address] Phone Care Team Providers Care Rubber Process Hand Name Role Phone Monique White MD Primary Care Provider [phone] Sohail Penaloza MD Unavailable [phone] Alfred Guevara DPM, Erik Unavailable [phone] Encounter Details Date Type Department Care Team (Late st Contact Info) Description 09/10/2022 12:20 PM EDT Hospital Encounter [facility] [address] [place] [address] Mat Beauchamp PA-C [address] [place] [address] [email or web address] Social History Tobacco Use Types Packs/Day Years [...] AM EST Office Visit [facility] [address] [place] [address] Ann Carrillo MD [address] [place] [address] 06/18/2025 11:00 AM EDT Office Visit [facility] [address] [place] [address] Ann Carrillo MD [address] [place] [address] 09/15/2025 11:00 AM EDT Office Visit [facility] [address] [place] [address] Felicita [place] PA-C [address] [place] [phone] documented as of this encounter Procedures Procedure [...] Tissues: No acute findings. Procedure Note Chaparro Christianosn MD, MPH - 09/10/2022 XR CHEST PA [...] on filedocumented in this encounter Care Teams Rubber Process Hand Relationship Specialty Start Date End Date Monique White MD [address] [place] [address] Drive [address] [place] [address] PCP - General Internal Medicine 08/30/19 Sohail Penaloza MD [address] [place] [address] Nephrology 07/14/22 Arturo Simon DPM [address] [place] [address] Podiatry 07/14/22 documented as of this encounter Additional Source Comments The information contained in this document represents components of the legal health record. It is not the complete legal health record.[facility]
--- OUTSIDE RECORDS SUMMARY | 2023-08-31 05:00 | XMS_ITS ---
Author Organization [facility] Address [address] [place] [address] Care Team Providers Care Nuclear Medicine Supervisor Name Role Phone Monique White Primary Care Provider Unavailabl Arturo Hoyos Unavailable [phone] malagon Encounters Encounter Location Date Provider Diagnosis [address] [address] 08/31/2023 Arturo Simon Plan Of Treatment Next Appt Details Provider Name:Arturo Simon , 03/10/2025 11:30:00 AM, [address] [place], [address], Progress Notes * EFRENGerri RDOB:[birth year] (89 yo F)Acc No.[id number]:08/31/2023 Progress Note Patient: Gerri MELO Provider: Mook Simon DPM :1935 A ge:88 Y S ex:Female Date:08/31/2023 Address: [address] [id number] Pcp:Monique White Subjective: * Chief Complaints: * [address] malagon. * Medical History: Objective: * Vitals: Assessment: Plan: * Treatment: * Images: * The named appointment provid er may or may not be the originator of this progress note, and it is not deemed complete until electronically signed by the appointment provider. Sign off status: Pending * Provider: Mook Simon DPM Date: 0 08/31/2023 Generated for Awilda diggs/Ac on: 1 04/14/2024 10:25 PM EST
--- OUTSIDE RECORDS SUMMARY | 2023-11-13 05:45 | XMS_ITS ---
Author Organization [facility] Address [address] [place] [address] Care Team Providers Care Dieing Out Machine Operator Name Role Phone Monique White Primary Care Provider UnavailArturo Jacome [phone] REASON FOR VISIT Seen Sooner Encounters Encounter Location Date Provider Diagnosis [address] [address] 11/13/2023 Arturo Simon Plan Of Treatment Next Appt Details Provider Name:Arturo Simon , 03/10/2025 11:30:00 AM, [address] [place], [address], Progress Notes * EFREN Gerri RDOB:[birth year] (89 yo F)Acc No.[id number]:11/13/2023 Progress Note Patient: Gerri MELO Provider: Mook Simon DPM :1935 A ge:88 Y S ex:Female Date:11/13/2023 Address: [address] [id number] Pcp:Monique White Subjective: * Chief Complaints: * [...] Simon DPM Date: 0 11/13/2023 Generated for Awilda diggs/Ac on: 1 04/14/2024 10:25 PM EST
--- OUTSIDE RECORDS SUMMARY | 2024-05-06 05:45 | XMS_ITS ---
Author Organization [facility] Address [address] [place] [address] Care Team Providers Care Career Development Counselor Name Role Phone Monique White Primary Care Provider Unavailabl Arturo Hoyos Unavailable [phone] Encounters Encounter Location Date Provider Diagnosis [address] [address] 05/06/2024 Arturo Simon Plan Of Treatment Next Appt Details Provider Name:Arturo Simon , 03/10/2025 11:30:00 AM, [address] [place], [address], Progress Notes * Gerri SCHWARTZ RDOB:[birth year] (89 yo F)Acc No.[id number]:05/06/2024 Progress Note Patient: Gerri MELO Provider: Mook Simon DPM :1935 A ge:88 Y S ex:Female Date:05/06/2024 Address:[address] [id number] Pcp:Monique White Subjective: * Chief Complaints: * * Medical History: Objective: * Vitals: Assessment: Plan: * Treatment: * Images: * The named appointment provid er may or may not be the originator of this progress note, and it is not deemed complete until electronically signed by the appointment provider. Sign off status: Pending * Provider: Mook Simon DPM Date: 0 05/06/2024 Generated for Awilda diggs/Lee/Nilay on: 1 04/14/2024 10:25 PM EST
--- OUTSIDE RECORDS SUMMARY | 2024-08-08 05:00 | XMS_ITS ---
Author Organization [facility] Address [address] [place] [address] Care Team Providers Care Rug Cutter Helper Name Role Phone Monique White Primary Care Provider Unavailabl Arturo Hoyos Unavailable [phone] Hernandez Encounters Encounter Location Date Provider Diagnosis [address] [address] 08/08/2024 Arturo Simon Plan Of Treatment Next Appt Details Provider Name:Arturo Simon , 03/10/2025 11:30:00 AM, [address] [place], [address], Progress Notes * EFREN Gerri RDOB:[birth year] (89 yo F)Acc No.[id number]:08/08/2024 Progress Note Patient: Gerri MELO Provider: Mook Simon DPM :1935 A ge:88 Y S ex:Female Date:08/08/2024 Address: [id number] Pcp:Monique White Subjective: * Chief Complaints: * [address] Hernandez. * Medical History: Objective: * Vitals: Assessment: Plan: * Treatment: * Images: * The named appointment provid er may or may not be the originator of this progress note, and it is not deemed complete until electronically signed by the appointment provider. Sign off status: Pending * Provider: Mook Simon DPM Date: 0 08/08/2024 Generated for Awilda diggs/Ac on: 1 04/14/2024 10:24 PM EST
--- OUTSIDE RECORDS SUMMARY | 2024-11-28 06:15 | XMS_ITS ---
Author Organization [facility] Address [address] [place] [address] Care Team Providers Care Professor Of Economics Name Role Phone Monique White Primary Care Provider Arturo Brown Unavailable [phone] Allergies Allergen (clinical drug ingredient) Drug/Non Drug [...] Not-Taking Encounters Encounter [facility] Date [facility] [address] [place] [address] 11/28/2024 Arturo Simon Plan Of Treatment Next Appt Details Provider Name:Arturo Simon , 03/10/2025 11:30:00 AM, [address] [place], [address], Progress Notes * Gerri SCHWARTZ RDOB:[birth year] (89 yo F)Acc No.[id number]:11/28/2024 Progress Note Patient: Gerri MELO Provider: Mook Simon DPM :1935 A ge:89 Y S ex:Female Date:11/28/2024 [id number] Pcp:Monique White Subjective: * Chief Complaints: * * Medical History: C holesterol, Transfusions, Joint implants/screws, Osteoporosis, Measles, High blood pressure, Diverticulitis, Chicken pox, Cataracts, Back, hip, knee pain, Arthritis, Sciatica, Endoscopy 10/2018, type I diabetes, Urinary tract infection. * Medications: T shorty Gaviria Max SoloStar 300 UNIT/ML Solution Pen-injector as [...] DPM Date: 0 11/28/2024 Generated for Awilda Bustos on: 04/14/2024 10:26 PM EST
--- NOTE | ~2025-02-12 | XR_ITS ---
CLINICAL HISTORY: PNA 1 view chest x-ray. Comparison: 02/13/2025 Findings: Stable consolidative opacity overlying right lung base, and stable small opacity overlying left lung base. No new consolidation. No definable pleural effusions.. Cardiac and mediastinal contours appear stable. Bones unremarkable. Impression: 1. Stable wnhef-ozzurqs-wycz-left basilar opacities. No significant interval change compared with the 02/13/2025. This document has been electronically signed by: Trent Hernandez MD on 02/15/2025 18:10:24
--- NOTE | ~2025-02-12 | CT_ITS ---
CLINICAL HISTORY: altered mental status CT head without contrast Comparison: CT/REG/SR - CT HEAD/BRAIN WO IV CON - 11/30/24 11:16 EDT Findings: No intracranial mass effect, midline shift, hydrocephalus, or acute hemorrhage. There is generalized cerebral and cerebellar volume loss. Buvs-hx-jvhuapde nonspecific periventricular and subcortical white matter changes are identified, which may be seen in the setting of chronic small vessel ischemic disease. Small area of decreased attenuation redemonstrated along the posterior margin of the cerebellum, centered to the right of the midline, which may represent an arachnoid cyst or jaime cisterna magna. Small arachnoid cyst redemonstrated along the anteromedial margin of the left temporal lobe. Similar findings were present on the prior exam. Visualized paranasal sinuses and mastoid air cells appear clear. No acute skull fracture. Impression: 1. No acute intracranial abnormality. No acute intracranial hemorrhage. This document has been electronically signed by: Ravindra Peralta MD on 02/13/2025 03:33:43
--- NOTE | ~2025-02-12 | XR_ITS ---
CLINICAL HISTORY: low oxygen saturations 1 view chest x-ray. Comparison: CT/REG/SR - CT CHEST WITHOUT IV CONTRAST - 12/03/24 09:37 EDT CR/SR - XR CHEST 1 VIEW - 09/22/24 12:29 EDT Findings: There is central pulmonary venous congestion with minimal to mild right basilar opacities and minimal blunting of the right costophrenic angle. Small, focal density redemonstrated over the lower left lung. No pneumothorax or significant left pleural effusion identified. Heart size is mildly enlarged. Impression: 1. Mild cardiomegaly with central pulmonary venous congestion and possible subtle pulmonary interstitial edema. There is minimal to mild right basilar atelectasis versus infiltrates with a probable small right pleural effusion. 2. Small, focal density redemonstrated over the lower left lung which may represent atelectasis, scarring, or minimal infiltrates. This document has been electronically signed by: Ravindra Peralta MD on 02/13/2025 01:33:11
[2025-02-12 21:56] VITALS: BP 129/76; PULSE 80; O2SAT 99; BMI 31.2
[2025-02-12 22:04] VITALS: BP 157/76; PULSE 74; RESP 16; TEMP 36.8; O2SAT 95
--- NOTE | 2025-02-12 22:18 | PC.NURSE ---
pt HYACINTH from [facility], pt noted to be resting, eyes closed, respirations even and unlabored, during triage pt noted to be extremely somnolent, not answering questions appropriately stating 'I don't know to all questions, pt has hx of Dementia, pt changed to hospital gown and placed on cardiac monitoring
--- OUTSIDE RECORDS SUMMARY | 2025-02-12 22:24 | XMS_ITS | Encounter Summary ---
Author Organization [facility] Address [address] [place] [phone] Care Team Providers Care Melt Superintendant Name Role Phone Torrey Kwok MD Primary Care Provider [phone] Encounter Details Date Type Department Care Team (Late st Contact Info) Description 09/17/2024 Lab Requisition [facility] - Main Lab 299 [facility] [place] [address] Torrey Kwok MD [address] [place], [place] [id number] Hyperglycemia, unspecified; Altered mental status, unspecified Social [...] Culture urine (09/16/2024 3:38 PM EDT) Pathologist [facility] Culture, Urine >100,000 CFU/mL Methicillin-Sensi tive Staphylococcus aureus(A) ANDRE 09/19/2024 10:55 AM EDT [facility] Comment: Edited result: Previously reported as [...] Final Result [facility] [address] [place] [address], * (ABNORMAL) Urinalysis with reflex microscopic and culture (09/16/2024 3:38 PM EDT) Pathologist [facility] Specific [place] Urine 1.023 1.003 - 1.030 LAB URINALYSIS - AUTOMATED METHOD 09/17/2024 10:53 AM [facility] pH, Urine 6.0 5.0 - 8.0 pH LAB URINALYSIS - AUTOMATED METHOD 09/17/2024 10:53 AM [facility] Leukocytes, Urine Small(A) Negative LAB URINALYSIS - AUTOMATED METHOD 09/17/2024 10:53 AM [facility] Nitrite, Urine Negative Negative LAB URINALYSIS - AUTOMATED METHOD 09/17/2024 10:53 AM [facility] Protein, Urine 30(A) <=Trace mg/dL LAB URINALYSIS - AUTOMATED METHOD 09/17/2024 10:53 AM [facility] Glucose, Urine >=1000(A) Negative mg/dL LAB URINALYSIS - AUTOMATED METHOD 09/17/2024 10:53 AM [facility] Ketones, Urine Trace(A) Negative mg/dL LAB URINALYSIS - AUTOMATED METHOD 09/17/2024 10:53 AM [facility] Urobilinogen , Urine 0.2 0.2 - 1.0 mg/dL LAB URINALYSIS - AUTOMATED METHOD 09/17/2024 10:53 AM [facility] Bilirubin, Urine Negative Negative LAB URINALYSIS - AUTOMATED METHOD 09/17/2024 10:53 AM [facility] Blood, Urine Negative Negative LAB URINALYSIS - AUTOMATED METHOD 09/17/2024 10:53 AM [facility] RBC, Urine 6.6(H) 0 - 4 /HPF LAB URINALYSIS - AUTOMATED METHOD 09/17/2024 10:53 AM [facility] WBC, Urine 25.4(H) 0 - 4 /HPF LAB URINALYSIS - AUTOMATED METHOD 09/17/2024 10:53 AM [facility] Squamous Epithelial, Urine 10 0 - 60 /LPF LAB URINALYSIS - AUTOMATED METHOD 09/17/2024 10:53 AM EDT [facility] Bacteria, Urine Negative Negative /HPF LAB URINALYSIS - AUTOMATED METHOD 09/17/2024 10:53 AM EDT [facility] Hyaline Casts, Urine 0.8 0 - 3 /LPF LAB URINALYSIS - AUTOMATED METHOD 09/17/2024 10:53 AM EDT [facility] Urine Urine specimen obtained by clean catch procedure / Unknown Non-blood Collection / Unknown 09/16/2024 3:38 PM EDT 09/17/2024 9:01 AM EDT Torrye Kwok MD LAB URINE ORDERABLES Final Resul t Performing Organization Address City/[facility]/ZIP Co de Phone Number [facility] [address] [place] [address], [place] [phone] * Frost urine culture tube (09/16/2024 3:38 PM EDT) Extra Tube Hold for add-ons. 09/17/2024 11:01 AM EDT [facility] Comment:Auto resulted. Urine Urine specimen obtained by clean catch procedure / Unknown Non-blood Collection / Unknown 09/16/2024 3:38 PM EDT 09/17/2024 9:01 AM EDT Torrey Kwok MD LAB URINE ORDERABLES Final Resul t [facility] [address] [place] [address], [place] [phone] documented in this encounter Visit Diagnoses Diagnosis Hyperglycemia, unspecified Altered mental status, unspecified documented in this encounter Care Teams Melt Superintendant Relationship Specialty Start Date End Date Torrey Kwok MD [address] [place] [address] [address] [place] [address] PCP - General Geriatric Medicine 04/25/24 documented as of this encounter
--- OUTSIDE RECORDS SUMMARY | 2025-02-12 22:24 | XMS_ITS | Encounter Summary ---
Author Organization [facility] Address [address] [place] [address] Care Team Providers Care Endoscopy Tech Name Role Phone Torrey Kwok MD Primary Care Provider [phone] Encounter Details Date Type Department Care Team (Late st Contact Info) Description 09/17/[address] [facility] - Main Lab 299 [facility] [place] [address] Torrey Kwok MD [address] [place], [place] [phone] Type 2 diabetes mellitus without complications (CMS/HCC V24, CMS/[facility] V28) Social History Tobacco Use Types [...] mellitus without complications (CMS/HCC V24, CMS/[facility] V28) documented in this encounter Results * (ABNORMAL) Hemoglobin A1c (09/17/2024 5:53 AM EDT) Hemoglobin A1C 9.8(H) <6.5 % LAB CHEMISTRY METHOD 09/17/2024 12:18 PM T [facility] Mean Bld Glu Estim. 235 mg/dL LAB CHEMISTRY METHOD 09/17/2024 12:18 PM T [facility] Blood Venous blood specimen / Unknown Venipuncture / Unknown 09/17/2024 5:53 AM EDT 09/17/2024 8:55 AM EDT Torrey Kwok MD LAB BLOOD ORDERABLES Final Resul t [facility] ([facility]) [facility] [address] [place] [address], documented in this encounter Visit Diagnoses Diagnosis Type 2 diabetes mellitus without complications (CMS/HCC V24, CMS/HCC V28) documented in this encounter Care Teams Endoscopy Tech Relationship Specialty Start Date End Date Torrey Kwok MD [address] [place] [address] [address] [place] [address] PCP - General Geriatric Medicine 04/25/24 documented as of this encounter
--- OUTSIDE RECORDS SUMMARY | 2025-02-12 22:24 | XMS_ITS | Encounter Summary ---
Author Organization [facility] Address [address] [place] [address] Care Team Providers Care Brand Designer Name Role Phone Torrey Kwok MD Primary Care Provider [phone] Encounter Details Date Type Department Care Team (Late st Contact Info) Description 12/19/2024 Lab Requisition [facility] - Main Lab 299 [facility] [place] [address] Torrey Kwok MD [address] [place], [place] [phone] Type 2 diabetes mellitus with diabetic chronic [...] diabetes mellitus with diabetic chronic kidney disease ([facility] V24, [facility] V28) Heart failure, unspecified ([facility] V24, [facility] V28) 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 ([facility] V24, CMS/[facility] V28) Essential (primary) hypertension BASIC METABOLIC PANEL Routine 12/22/2024 6:38 AM EDT Type 2 diabetes mellitus with diabetic chronic kidney disease ([facility] V24, [facility] V28) Heart failure, unspecified ([facility] V24, [facility] V28) 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 217 mg/dL LAB CHEMISTRY METHOD 12/22/2024 1:38 PM EDT [facility] Blood Venous blood specimen / Unknown Venipuncture / Unknown 12/22/2024 6:38 AM EDT 12/22/2024 11:02 AM EDT us Torrey Kwok MD LAB BLOOD ORDERABLES Final Resul t [facility] [address] [place] [address], * (ABNORMAL) Complete blood count (12/22/2024 6:38 AM EDT) Pathologist [facility] WBC 6.0 4.8 - 10.8 K/mcL LAB HEMETOLOGY METHOD 12/22/2024 11:36 AM EDT [facility] RBC 3.50(L) 3.80 - 4.80 M/mcL LAB HEMETOLOGY METHOD 12/22/2024 11:36 AM [facility] Hemoglobin 10.9(L) 11.5 - 16.0 g/dL LAB HEMETOLOGY METHOD 12/22/2024 11:36 AM [facility] Hematocrit 34.2(L) 35.0 - 47.0 % LAB HEMETOLOGY METHOD 12/22/2024 11:36 AM [facility] MCV 98.0 79.0 - 98.0 FL LAB HEMETOLOGY METHOD 12/22/2024 11:36 AM [facility] MCH 31.2 27.0 - 32.0 pcg LAB HEMETOLOGY METHOD 12/22/2024 11:36 AM [facility] MCHC 31.9(L) 32.0 - 37.0 g/dL LAB HEMETOLOGY METHOD 12/22/2024 11:36 AM [facility] RDW 15.8(H) 11.0 - 15.0 % LAB HEMETOLOGY METHOD 12/22/2024 11:36 AM [facility] Platelets 259 130 - 400 K/mcL LAB HEMETOLOGY METHOD 12/22/2024 11:36 AM [facility] MPV 10.9 7.0 - 11.0 FL LAB HEMETOLOGY METHOD 12/22/2024 11:36 AM [facility] NRBC 0.0 <1.0 % LAB HEMETOLOGY METHOD 12/22/2024 11:36 AM [facility] NRBC Absolute 0.00 <0.10 K/mcL LAB HEMETOLOGY METHOD 12/22/2024 11:36 AM [facility] Blood Venous blood specimen / Unknown Venipuncture / Unknown 12/22/2024 6:38 AM EDT 12/22/2024 11:02 AM EDT us Torrey Kwok MD LAB BLOOD ORDERABLES Final Resul t [facility] [address] [place] [address], * (ABNORMAL) Basic metabolic panel (12/22/2024 6:38 AM EDT) Sodium 137 133 - 145 mmol/L LAB CHEMISTRY METHOD 12/22/2024 2:47 PM [facility] Potassium 4.0 3.5 - 5.5 mmol/L LAB CHEMISTRY METHOD 12/22/2024 2:47 PM [facility] Chloride 104 96 - 110 mmol/L LAB CHEMISTRY METHOD 12/22/2024 2:47 PM [facility] CO2 22 21 - 32 mmol/L LAB CHEMISTRY METHOD 12/22/2024 2:47 PM [facility] Anion Gap 11 3 - 11 LAB CHEMISTRY METHOD 12/22/2024 2:47 PM [facility] Glucose 187(H) 70 - 100 mg/dL LAB CHEMISTRY METHOD 12/22/2024 2:47 PM [facility] BUN 38(H) 5 - 25 mg/dL LAB CHEMISTRY METHOD 12/22/2024 2:47 PM [facility] Creatinine 1.17(H) 0.50 - 1.10 mg/dL LAB CHEMISTRY METHOD 12/22/2024 2:47 PM [facility] eGFR 45(L) >=60 mL/min/1. 73m2 LAB CHEMISTRY METHOD 12/22/2024 2:47 PM [facility] Comment:Calculation based on the Chronic Kidney Disease Epidemiology Collaboration (CKD-EPI) equation refit without adjustment for race. BUN/Creatinine Ratio 32.5 LAB CHEMISTRY METHOD 12/22/2024 2:47 PM EDT [facility] Calcium 8.7 8.5 - 10.5 mg/dL LAB CHEMISTRY METHOD 12/22/2024 2:47 PM EDT [facility] Blood Venous blood specimen / Unknown Venipuncture / Unknown 12/22/2024 6:38 AM EDT 12/22/2024 11:03 AM EDT Torrey Kwok MD LAB BLOOD ORDERABLES Final Resul t [facility] ([facility] [address] [place] [address], documented in this encounter Visit Diagnoses Diagnosis Type 2 diabetes mellitus with diabetic chronic kidney disease ([facility] V24, [facility] V28) Heart failure, unspecified (CMS/[facility] V24, [facility] V28) Heart failure, unspecified 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
--- OUTSIDE RECORDS SUMMARY | 2025-02-12 22:24 | XMS_ITS | Encounter Summary ---
Author Organization [facility] Address [address] [place] [phone] Care Team Providers Care Tack Puller Machine Name Role Phone Torrey Kwok MD Primary Care Provider Encounter Details Date Type Department Care Team (Late st Contact Info) Description 12/18/2024 Lab Requisition [facility] - Main Lab 299 [facility] [place] [address] Torrey Kwok MD [address] [place], [place] [id number] Type 2 diabetes mellitus without complications (CMS/HCC V24, CMS/[facility] V28) Social History Tobacco Use [...] mellitus without complications (CMS/HCC V24, CMS/[facility] V28) documented in this encounter Results * (ABNORMAL) Hemoglobin A1c (12/19/2024 6:26 AM EDT) Hemoglobin A1C 9.1(H) <6.5 % LAB CHEMISTRY METHOD 12/19/2024 12:42 PM T [facility] Mean Bld Glu Estim. 214 mg/dL LAB CHEMISTRY METHOD 12/19/2024 12:42 PM T [facility] Blood Venous blood specimen / Unknown Venipuncture / Unknown 12/19/2024 6:26 AM EDT 12/19/2024 10:41 AM EDT Torrey Kwok MD LAB BLOOD ORDERABLES Final Resul t [facility] ([facility]) [facility] [address] [place] [address], documented in this encounter Visit Diagnoses Diagnosis Type 2 diabetes mellitus without complications (CMS/HCC V24, CMS/HCC V28) documented in this encounter Care Teams Tack Puller Machine Relationship Specialty Start Date End Date Torrey Kwok MD [address] [place] [address] [address] [place] [address] PCP - General Geriatric Medicine 04/25/24 documented as of this encounter
--- OUTSIDE RECORDS SUMMARY | 2025-02-12 22:24 | XMS_ITS | Encounter Summary ---
Author Organization [facility] Address [address] [place] [phone] Care Team Providers Care Furniture Servicer Name Role Phone Torrey Kwok MD Primary Care Provider [phone] Encounter Details Date Type Department Care Team (Late st Contact Info) Description 12/05/2024 Lab Requisition [facility] - Main Lab [address] 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 ([facility] V24, [facility] V28) documented in this encounter Results * (ABNORMAL) Complete blood count (12/09/2024 5:54 AM EDT) [facility] WBC 6.2 4.8 - 10.8 K/mcL LAB HEMETOLOGY METHOD 12/09/2024 1:26 PM [facility] RBC 3.60(L) 3.80 - 4.80 M/mcL LAB HEMETOLOGY METHOD 12/09/2024 1:26 PM [facility] Hemoglobin 11.0(L) 11.5 - 16.0 g/dL LAB HEMETOLOGY METHOD 12/09/2024 1:26 PM [facility] Hematocrit 35.0 35.0 - 47.0 % LAB HEMETOLOGY METHOD 12/09/2024 1:26 PM [facility] MCV 98.6(H) 79.0 - 98.0 FL LAB HEMETOLOGY METHOD 12/09/2024 1:26 PM [facility] MCH 31.0 27.0 - 32.0 pcg LAB HEMETOLOGY METHOD 12/09/2024 1:26 PM [facility] MCHC 31.4(L) 32.0 - 37.0 g/dL LAB HEMETOLOGY METHOD 12/09/2024 1:26 PM [facility] RDW 15.5(H) 11.0 - 15.0 % LAB HEMETOLOGY METHOD 12/09/2024 1:26 PM [facility] Platelets 274 130 - 400 K/mcL LAB HEMETOLOGY METHOD 12/09/2024 1:26 PM EDT [facility] MPV 11.0 7.0 - 11.0 FL LAB HEMETOLOGY METHOD 12/09/2024 1:26 PM EDT [facility] NRBC 0.0 <1.0 % LAB HEMETOLOGY METHOD 12/09/2024 1:26 PM EDT [facility] NRBC Absolute 0.00 <0.10 K/mcL LAB HEMETOLOGY METHOD 12/09/2024 1:26 PM EDT [facility] Blood Venous blood specimen / Unknown Venipuncture / Unknown 12/09/2024 5:54 AM EDT 12/09/2024 12:29 PM EDT us Torrey Kwok MD LAB BLOOD ORDERABLES Final Resul t [facility] [address] [place] [address], * (ABNORMAL) Basic metabolic panel (12/09/2024 5:54 AM EDT) Sodium 135 133 - 145 mmol/L LAB CHEMISTRY METHOD 12/09/2024 6:26 PM [facility] Potassium 3.7 3.5 - 5.5 mmol/L LAB CHEMISTRY METHOD 12/09/2024 6:26 PM [facility] Chloride 97 96 - 110 mmol/L LAB CHEMISTRY METHOD 12/09/2024 6:26 PM [facility] CO2 30 21 - 32 mmol/L LAB CHEMISTRY METHOD 12/09/2024 6:26 PM [facility] Anion Gap 8 3 - 11 LAB CHEMISTRY METHOD 12/09/2024 6:26 PM [facility] Glucose 233(H) 70 - 100 mg/dL LAB CHEMISTRY METHOD 12/09/2024 6:26 PM EDT [facility] BUN 31(H) 5 - 25 mg/dL LAB CHEMISTRY METHOD 12/09/2024 6:26 PM EDT [facility] Creatinine 1.23(H) 0.50 - 1.10 mg/dL LAB CHEMISTRY METHOD 12/09/2024 6:26 PM EDT [facility] eGFR 42(L) >=60 mL/min/1. 73m2 LAB CHEMISTRY METHOD 12/09/2024 6:26 PM EDT [facility] Comment:Calculation based on the Chronic Kidney Disease Epidemiology Collaboration (CKD-EPI) equation refit without adjustment for race. BUN/Creatinine Ratio 25.2 LAB CHEMISTRY METHOD 12/09/2024 6:26 PM EDT [facility] Calcium 8.6 8.5 - 10.5 mg/dL LAB CHEMISTRY METHOD 12/09/2024 6:26 PM EDT [facility] Blood Venous blood specimen / Unknown Venipuncture / Unknown 12/09/2024 5:54 AM EDT 12/09/2024 12:30 PM EDT Torrey Kwok MD LAB BLOOD ORDERABLES Final Resul t [facility] [address] [place] [address], documented in this encounter Visit Diagnoses Diagnosis 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, CMS/HCC V28) Essential (primary) hypertension Unspecified essential hypertension Heart failure, unspecified (CMS/HCC V24, CMS/HCC V28) Heart failure, unspecified 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
--- OUTSIDE RECORDS SUMMARY | 2025-02-12 22:24 | XMS_ITS | Encounter Summary ---
Author Organization [facility] Address [address] [place] [phone] Care Team Providers Care Bunk Assembler Name Role Phone Torrey Kwok MD Primary Care Provider [phone] Encounter Details Date Type Department Care Team (Late st Contact Info) Description 11/28/2024 Lab Requisition [facility] - Main Lab 299 [facility] [place] [address] Torrey Kwok MD [address] [place], [place] [phone] Type 2 diabetes mellitus with diabetic chronic [...] V28) documented in this encounter Care Teams Bunk Assembler Relationship Specialty Start Date End Date Torrey Kwok MD [address] [place] [address] PCP - General Geriatric Medicine 04/25/24 documented as of this encounter
--- OUTSIDE RECORDS SUMMARY | 2025-02-12 22:24 | XMS_ITS | Encounter Summary ---
Author Organization [facility] Address [address] [place] [address] Care Team Providers Care Loom Stop Checker Name Role Phone Torrey Kwok MD Primary Care Provider [phone] Encounter Details Date Type Department Care Team (Late st Contact Info) Description 05/01/2024 Lab Requisition [facility] - Main Lab 299 [facility] [employer] [place] [address] Torrey Kwok MD [address] [place], [place] [phone] Type 2 diabetes mellitus without complications (CMS/HCC [...] mmol/L LAB CHEMISTRY METHOD 05/01/2024 9:17 AM [facility] CO2 29 21 - 32 mmol/L LAB CHEMISTRY METHOD 05/01/2024 9:17 AM [facility] Anion Gap 8 3 - 11 LAB CHEMISTRY METHOD 05/01/2024 9:17 AM [facility] Glucose 262(H) 70 - 100 mg/dL LAB CHEMISTRY METHOD 05/01/2024 9:17 AM [facility] BUN 45(H) 5 - 25 mg/dL LAB CHEMISTRY METHOD 05/01/2024 9:17 AM [facility] Creatinine 1.66(H) 0.50 - 1.10 mg/dL LAB CHEMISTRY METHOD 05/01/2024 9:17 AM [facility] eGFR 30(L) >=60 mL/min/1. 73m2 LAB CHEMISTRY METHOD 05/01/2024 9:17 AM [facility] Comment:Calculation based on the Chronic Kidney Disease Epidemiology Collaboration (CKD-EPI) equation refit without adjustment for race. BUN/Creatinine Ratio 27.1 LAB CHEMISTRY METHOD 05/01/2024 9:17 AM [facility] Calcium 7.6(L) 8.5 - 10.5 mg/dL LAB CHEMISTRY METHOD 05/01/2024 9:17 AM [facility] Blood Venous blood specimen / Unknown Venipuncture / Unknown 05/01/2024 7:06 AM EST 05/01/2024 8:25 AM EST us Torrey Kwok MD LAB BLOOD ORDERABLES Final Resul t [facility] [address] [place] [address], documented in this encounter Visit Diagnoses Diagnosis Type 2 diabetes mellitus without complications (CMS/HCC V24, CMS/HCC V28) documented in this encounter Additional Health Concerns Infection Onset Date Last Indicated Resolved Time Respiratory Rule-Out 07/12/2024 07/11/2024 025 11:25 AM EDT documented as of this encounter Care Teams Loom Stop Checker Relationship Specialty Start Date End Date Torrey Kwok MD [address] [place] [address] [address] [place] [address] PCP - General Geriatric Medicine 04/25/24 documented as of this encounter
--- OUTSIDE RECORDS SUMMARY | 2025-02-12 22:24 | XMS_ITS | Clinical Summary ---
Author Organization [facility] Address [address] [place] [address] Phone Care Team Providers Care Paper Conservator Name Role Phone Monique White MD Primary Care Provider [phone] Sohail Penlaoza MD Unavailable [phone] Alfred Guevara DPM, Erik Unavailable [phone] Allergies Active Allergy Reactions Criticality Noted Date [...] ML BY MOUTH DAILY NEEDED FOR CONSTIPATION 01/05/20 21 Active rivaroxaban (XARELTO) 15 mg Tab Take 15 mg by mouth daily with dinner. Active travoprost (TRAVATAN Z) 0.004 % Drop Place 1 drop into each eye nightly at bedtime. Active vitamins A,C,P-uvmw-azvtso (PRESERVISION AREDS) 4,296 mcg-226 mg-90 mg Cap Take 1 capsule by mouth 2 (two) times a day with meals. Active cholecalciferol (VITAMIN D3) 2,000 unit capsule Take 1 capsule by mouth. 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 Patient to pay out of pocket do not run through insurance 1 each 1 05/02/19 24 Active levothyroxine (SYNTHROID, LEVOTHROID) 125 MCG tabletIndications: Acquired hypothyroidism Take 1 tablet (125 mcg total) by mouth every morning. 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 500 each 3 08/10/19 24 Active metoprolol succinate (TOPROL-XL) 25 MG 24 hr tablet Take 25 mg by mouth nightly at bedtime. 11/06/19 24 Active amiodarone (PACERONE) 200 MG tablet 01/27/20 24 Active calcitriol (ROCALTROL) 0.25 MCG capsule Take 0.25 mcg by mouth daily. Active HUMALOG KWIKPEN INSULIN 100 unit/mL kwikpenIndications :3-4 times a day as needed Up to 8 units, subcutaneously, tid AC Indications: 3-4 times a day as needed 30 mL 3 02/14/20 Active senna-docusate (PERICOLACE) 8.6-50 mg Take 1 [...] INSULIN 300 unit/mL (1.5 mL) subcutaneous injection penIndications:Typ e 1 diabetes mellitus with peripheral neuropathy Inject 12 Units under the skin every morning. 4.5 mL 3 11/26/19 25 Active Active Problems Problem Noted Date Diagnosed Date Acute cough 09/10/2022 Hypothyroidism 07/14/2022 Assessment & Plan (12/16/2024 12:30 PM EDT): Her TSH was elevated on blood work done in the hospital and her levothyroxine dosing was adjusted to taking 175 mcg daily. Wrote on the half-way paperwork to have her TSH checked on [...] PT (per her report last PT at [facility] in July-August 2020). I have encouraged her [...] Overview (01/18/2023): Dx age 40. Ophtho - [facility]. 14 day anyi via Pamela Assessment & Plan (02/14/2024 5:08 PM EST): Up to date w/ ophtho. Assessment & Plan (08/14/2023 3:49 PM EDT): Up to date w/ ophtho. Assessment & Plan (01/18/2023 11:00 AM EDT): Up to date w/ ophtho. Assessment & Plan (10/25/2022 3:33 PM EDT): Control is suboptimal based upon the patient's freestyle anyi 14 day sensor download. No frequent or severe hypoglycemia. With her glucose levels running high, will have her daughter try increasing the toujeo to 13 units from 12 units to see if this helps lower her overall readings. Discussed changing the sensors to have an alarm but due to not being able to use multiple devices with the anyi 2 will continue with using the 14 day. Continue to work on eating healthy and being active. To call or message with any issues managing her glucose levels. Up to date with ophtho. Sees podiatry. Labs ordered today Assessment & [...] with glycemic control. Up to date with ophtho. Will do labs today. To call if [...] and comorbidities based upon the patient's freestyle anyi 2+ sensor download. No frequent or severe hypoglycemia. Will maintain the patient's regimen. Continue to work on eating healthy. To call or message with any issues managing her glucose levels. Up to date with ophtho. Seeing podiatry in the half-way. Requested A1C be drawn next week as is due for it. care home form filled out, copy kept for chart. Assessment & Plan (09/18/2024 3:54 PM EDT): Control is suboptimal based upon the patient's freestyle anyi 14 day sensor download. No frequent or severe hypoglycemia. There was one recent low, it was corrected and she was fine. Her glucose levels have been running very high recently. Her daughter is not sure why the glucose levels have been consistently high. Wrote on the half-way sheet to have testing run for a [...] interested in looking into switching the patient's anyi 14 day sensor to the dexcom G7. [...] her glucose levels. Up to date with [facility]. care home form filled out, copy kept for chart. Assessment & Plan (07/11/2024 1:05 PM EDT): Control is reasonable but not optimal based upon the patient's freestyle anyi 14 day sensor download. No severe lows. She has been having episodes of hypoglycemia likely due to receiving too much toujeo. The half-way she is living in has her listed as having type 2 diabetes and therefore is not giving her prandial insulin if her glucose levels are below 200. On the form given from the half-way, I documented she has type 1 diabetes [...] on how to correct hypoglycemia as the half-way has been giving her a lot of boost drinks and this is likely adding to the weight gain. The daughter just ordered more freestyle anyi 14 day sensors, discussed when these get close to finishing, we should really consider switching to the dexcom. Her mother will be able to have the readings on the liquefaction and regasification helper, if they can get an old iphone [...] her glucose levels. Up to date with [facility] Assessment & Plan (02/14/2024 [...] not optimal based upon the patient's freestyle anyi 14 day sensor download. No frequent or severe hypoglycemia. Her daughter has been able to get the freestyle anyi 14 day sensors. Discussed when they are [...] her glucose levels. Up to date with [facility]. Sees podiatry. Labs to be done with [...] not optimal based upon the patient's freestyle anyi 14 day sensor download. No frequent or severe hypoglycemia. Discussed with her daughter by the end of the year we will likely need to transition her mother's CGM to the dexcom G7 once the freestyle anyi 14 day sensors are no longer available. She wants to wait to do this as long as possible. Signed and faxed the forms to [employer] for her shoes. Will maintain her regimen. Continue to work on eating healthy and being active. To call or message with any issues managing her glucose levels. Up to date with [facility]. 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 07/14/2022 01/18/2023 Encounters Date Type Department Care Team Description 02/10/2025 Telephone [facility] Endocrinology [address] [place] [address] Ann Carrillo MD Forms & Paperwork (/) 12/25/2024 Orders Only [facility] Endocrinology [address] [place] [address] [place] [address] Ann Carrillo MD Acquired hypothyroidism (Primary Dx) 12/22/2024 Telephone [employer] [facility] Endocrinology [address] [place] [address] Ann Carrillo MD 12/16/2024 10:40 AM EDT Office Visit [facility] Endocrinology [address] [place] [address] [place] [address] Felicita Morgan PA-C Type 1 diabetes mellitus with peripheral neuropathy (Primary Dx); Acquired hypothyroidism 11/20/2024 Telephone [facility] Endocrinology [address] [place] [address] [place] [address] Ann Carrillo MD Forms & Paperwork from Last 3 Months Family History Medical [...] AM EST Office Visit [facility] [address] [place] [address] Ann Carrillo MD [address] [place] [phone] 06/18/2025 11:00 AM EDT Office Visit [facility] [address] [place] [address] Ann Carrillo MD [address] [place] [address] 09/15/2025 11:00 AM EDT Office Visit [facility] [address] [place] [address] Felicita Morgan PA-C [address] [place] [address] [email or web address] Health Maintenance Due Date Last Done Comments DEPRESSION SCREENING 1948 LIPID PANEL 1954 ZOSTER VACCINES (1 of 2) 1986 OSTEOPOROSIS SCREENING INITIAL (ONE-TIME) 2001 RSV VACCINE (1 - 1-dose 75+ series) 08/17/2011 PNEUMOCOCCAL VACCINES (50+ years) (2 of 2 - PPSV23, PCV20, or PCV21) 08/06/2018 06/11/2018 DIABETIC EYE EXAM 01/12/2021 ALT LEVEL (ALANINE AMINOTRANSFERASE) 07/15/2023 07/14/2022, 09/22/2020 CREATININE LEVEL 07/15/2023 07/14/2022, 09/22/2020 INFLUENZA VACCINE (#1) 2024 , 02/05/2021, 02/02/2020, Additional history exists COVID-19 VACCINE (2024- season) 2024 02/17/2021, 06/15/2020 HEMOGLOBIN A1C 12/18/2024 09/17/2024, 04/09, 07/14/2022 TSH LEVEL 08/22/2025 08/22/2024, 06/07, 04/25/2024, Additional history exists Adult Td,Tdap Booster [...] AM EDT Acquired hypothyroidism BASIC METABOLIC PANEL (BMP) Routine 07/14/2022 10:08 AM EDT Insulin dependent diabetes mellitus type IA ALANINE AMINOTRANSFERASE (ALT) Routine 07/14/2022 10:08 AM EDT Insulin dependent diabetes mellitus type IA from Last 3 Months or Most Recently Relevant to Health Maintenance Results * TSH with reflex (07/14/2022 10:08 AM EDT) TSH 3.94 0.27 - 4.20 uIU/mL [facility] Blood 07/14/2022 10:0 8 AM EDT 07/14/2022 10:10 AM EDT Ann Carrillo MD LAB BLOOD BKR ORDERABL ES Final Result Performing Organization Address City/[facility]/ZIP Co de Phone Number [address] [address] * Alanine aminotransferase (ALT) (07/14/2022 10:08 AM EDT) ALT 16 0 - 40 U/L [facility] Blood 07/14/2022 10:0 8 AM EDT 07/14/2022 10:10 AM EDT Ann Carrillo MD LAB BLOOD BKR ORDERABL ES Final Result [address] [address] * (ABNORMAL) Hemoglobin A1c (07/14/2022 10:08 AM EDT) HEMOGLOBIN A1C 9.2(H) 4.3 - 5.8 % [facility] Blood 07/14/2022 10:0 8 AM EDT 07/14/2022 10:10 AM EDT Ann Carrillo MD LAB BLOOD BKR ORDERABL ES Final Result Performing Organization Address City/[facility]/ZIP Co de Phone Number [address] [address] * (ABNORMAL) Basic metabolic panel (07/14/2022 10:08 AM EDT) SODIUM 139 133 - 146 mmol/L [facility] CHLORIDE 99 96 - 108 mmol/L [facility] POTASSIUM 4.4 3.3 - 5.1 mmol/L [facility] CO2 30 21 - 35 mmol/L [facility] BUN 31(H) 6 - 19 mg/dL [facility] CREATININE 1.30 0.5 - 1.5 mg/dL [facility] GLUCOSE 178(H) 70 - 99 mg/dL [facility] CALCIUM 9.1 8.4 - 10.3 mg/dL [facility] EGFR 40(L) >59 mL/min/1.7 3m2 [facility] Comment:Estimated glomerular filtration rate calculated using the CKD-EPI refit equation. ANION GAP 14 10 - 20 mmol/L [facility] Blood 07/14/2022 10:0 8 AM EDT 07/14/2022 10:10 AM EDT Ann Carrillo MD LAB BLOOD BKR ORDERABL ES Final Result Performing Organization Address City/[facility]/ZIP Co de Phone Number [address] [address] from Last 3 Months or Most Recently Relevant to Health Maintenance Insurance MEDICARE PART A & B [employer] MEDEX SUPPLEMENT MEDICARE PART A & B [employer] CROSS MEDEX SUPPLEMENT MEDICARE PART A & B [employer] MEDEX SUPPLEMENT MEDICARE PART A & B [employer] MEDEX SUPPLEMENT MEDICARE PART A & B [id number] MEDEX SUPPLEMENT MEDICARE PART A & B 3FLOZ MEDEX SUPPLEMENT MEDICARE PART A & B [facility] MEDEX SUPPLEMENT MEDICARE PART A & B [employer] CROSS MEDEX SUPPLEMENT MEDICARE PART A & B BLUE CROSS MEDEX SUPPLEMENT Care Teams Paper Conservator Relationship Specialty Start Date End Date Monique White MD [address] [place] [phone] PCP - General Internal Medicine 08/30/19 Sohail Penaloza MD [address] [place] [phone] Nephrology 07/14/22 Arturo Simon DPM [address] [place] [address] Podiatry 07/14/22 Additional Source Comments The information contained in this document represents components of the legal health record. It is not the complete legal health record.[facility]
--- OUTSIDE RECORDS SUMMARY | 2025-02-12 22:24 | XMS_ITS | Encounter Summary ---
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 - Main Lab [address] [facility] [place] [address] Torrey Kwok MD [address] [place], [place] [phone] Type 2 diabetes mellitus with diabetic chronic [...] Complete blood count (12/15/2024 6:28 AM EDT) [facility] WBC 5.3 4.8 - 10.8 K/mcL LAB HEMETOLOGY METHOD 12/15/2024 9:[address] [facility] RBC 3.50(L) 3.80 - 4.80 M/mcL LAB HEMETOLOGY METHOD 12/15/2024 9:[address] [facility] Hemoglobin 10.8(L) 11.5 - 16.0 g/dL LAB HEMETOLOGY METHOD 12/15/2024 9:[address] [facility] Hematocrit 34.0(L) 35.0 - 47.0 % LAB HEMETOLOGY METHOD 12/15/2024 9:[address] [facility] MCV 97.7 79.0 - 98.0 FL LAB HEMETOLOGY METHOD 12/15/2024 9:[address] [facility] MCH 31.0 27.0 - 32.0 pcg LAB HEMETOLOGY METHOD 12/15/2024 9:[address] [facility] MCHC 31.8(L) 32.0 - 37.0 g/dL LAB HEMETOLOGY METHOD 12/15/2024 9:[address] [facility] RDW 15.4(H) 11.0 - 15.0 % LAB HEMETOLOGY METHOD 12/15/2024 9:[address] [facility] Platelets 299 130 - 400 K/mcL LAB HEMETOLOGY METHOD 12/15/2024 9:45 AM EDT [facility] MPV 10.7 7.0 - 11.0 FL LAB HEMETOLOGY METHOD 12/15/2024 9:45 AM EDT [facility] NRBC 0.0 <1.0 % LAB HEMETOLOGY METHOD 12/15/2024 9:45 AM EDT [facility] NRBC Absolute 0.00 <0.10 K/mcL LAB HEMETOLOGY METHOD 12/15/2024 9:45 AM EDT [facility] Blood Venous blood specimen / Unknown Venipuncture / Unknown 12/15/2024 6:28 AM EDT 12/15/2024 9:33 AM EDT us Torrey Kwok MD LAB BLOOD ORDERABLES Final Resul t [facility] [address] [place] [address], * (ABNORMAL) Basic metabolic panel (12/15/2024 6:28 AM EDT) Sodium 136 133 - 145 mmol/L LAB CHEMISTRY METHOD 12/15/2024 10:[address] [facility] Potassium 4.1 3.5 - 5.5 mmol/L LAB CHEMISTRY METHOD 12/15/2024 10:[address] [facility] Chloride 99 96 - 110 mmol/L LAB CHEMISTRY METHOD 12/15/2024 10:[address] [facility] CO2 30 21 - 32 mmol/L LAB CHEMISTRY METHOD 12/15/2024 10:[address] [facility] Anion Gap 7 3 - 11 LAB CHEMISTRY METHOD 12/15/2024 10:[address] [facility] Glucose 321(H) 70 - 100 mg/dL LAB CHEMISTRY METHOD 12/15/2024 10:12 AM EDT [facility] BUN 37(H) 5 - 25 mg/dL LAB CHEMISTRY METHOD 12/15/2024 10:12 AM EDT [facility] Creatinine 1.30(H) 0.50 - 1.10 mg/dL LAB CHEMISTRY METHOD 12/15/2024 10:12 AM EDT [facility] eGFR 40(L) >=60 mL/min/1. 73m2 LAB CHEMISTRY METHOD 12/15/2024 10:12 AM EDT [facility] Comment:Calculation based on the Chronic Kidney Disease Epidemiology Collaboration (CKD-EPI) equation refit without adjustment for race. BUN/Creatinine Ratio 28.5 LAB CHEMISTRY METHOD 12/15/2024 10:12 AM EDT [facility] Calcium 8.9 8.5 - 10.5 mg/dL LAB CHEMISTRY METHOD 12/15/2024 10:12 AM T [facility] Blood Venous blood specimen / Unknown Venipuncture / Unknown 12/15/2024 6:28 AM EDT 12/15/2024 9:31 AM EDT us Torrey Kwok MD LAB BLOOD ORDERABLES Final Resul t [facility] [address] [place] [address], documented in this encounter Visit Diagnoses Diagnosis 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, CMS/HCC V28) Essential (primary) hypertension Unspecified essential hypertension Heart failure, unspecified (CMS/HCC V24, CMS/HCC V28) Heart failure, unspecified 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
--- OUTSIDE RECORDS SUMMARY | 2025-02-12 22:24 | XMS_ITS | Encounter Summary ---
Author Organization [facility] Address [address] [place] [phone] Care Team Providers Care Electronic Pagination System Operator Name Role Phone Torrey Kwok MD Primary Care Provider [phone] Encounter Details Date Type Department Care Team (Late st Contact Info) Description 07/26/[address] 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 ([facility] V24, [facility] V28) documented in this encounter Results * (ABNORMAL) Basic metabolic panel (07/28/2024 5:15 AM EDT) Sodium 137 133 - 145 mmol/L LAB CHEMISTRY METHOD 07/28/2024 1:12 PM [facility] Potassium 3.7 3.5 - 5.5 mmol/L LAB CHEMISTRY METHOD 07/28/2024 1:12 PM [facility] Chloride 99 96 - 110 mmol/L LAB CHEMISTRY METHOD 07/28/2024 1:12 PM [facility] CO2 32 21 - 32 mmol/L LAB CHEMISTRY METHOD 07/28/2024 1:12 PM [facility] Anion Gap 6 3 - 11 LAB CHEMISTRY METHOD 07/28/2024 1:12 PM [facility] Glucose 292(H) 70 - 100 mg/dL LAB CHEMISTRY METHOD 07/28/2024 1:12 PM [facility] BUN 26(H) 5 - 25 mg/dL LAB CHEMISTRY METHOD 07/28/2024 1:12 PM [facility] Creatinine 1.21(H) 0.50 - 1.10 mg/dL LAB CHEMISTRY METHOD 07/28/2024 1:12 PM [facility] eGFR 43(L) >=60 mL/min/1. 73m2 LAB CHEMISTRY METHOD 07/28/2024 1:12 PM [facility] Comment:Calculation based on the Chronic Kidney Disease Epidemiology Collaboration (CKD-EPI) equation refit without adjustment for race. BUN/Creatinine Ratio 21.5 LAB CHEMISTRY METHOD 07/28/2024 1:12 PM EDT [facility] Calcium 9.0 8.5 - 10.5 mg/dL LAB CHEMISTRY METHOD 07/28/2024 1:12 PM EDT [facility] Blood Venous blood specimen / Unknown Venipuncture / Unknown 07/28/2024 5:15 AM EDT 07/28/2024 11:29 AM EDT us Torrey Kwok MD LAB BLOOD ORDERABLES Final Resul t [facility] [address] [place] [address], * (ABNORMAL) Complete blood count (07/28/2024 5:15 AM EDT) WBC 8.2 4.8 - 10.8 K/mcL LAB HEMETOLOGY METHOD [facility]24 [facility] RBC 3.30(L) 3.80 - 4.80 M/mcL LAB HEMETOLOGY METHOD 07/28/2024 12:47 PM EDT [facility] Hemoglobin 10.3(L) 11.5 - 16.0 g/dL LAB HEMETOLOGY METHOD 07/28/2024 12:47 PM [facility] Hematocrit 33.0(L) 35.0 - 47.0 % LAB HEMETOLOGY METHOD 07/28/2024 12:47 PM EDT [facility] MCV 101.5(H) 79.0 - 98.0 FL LAB HEMETOLOGY METHOD 07/28/2024 12:47 PM EDT [facility] MCH 31.7 27.0 - 32.0 pcg LAB HEMETOLOGY METHOD 07/28/2024 12:47 PM [facility] MCHC 31.2(L) 32.0 - 37.0 g/dL LAB HEMETOLOGY METHOD 07/28/2024 12:47 PM EDT [facility] RDW 17.0(H) 11.0 - 15.0 % LAB HEMETOLOGY METHOD 07/28/2024 12:47 PM EDT [facility] Platelets 308 130 - 400 K/mcL LAB HEMETOLOGY METHOD 07/28/2024 12:47 PM EDT [facility] MPV 10.7 7.0 - 11.0 FL LAB HEMETOLOGY METHOD 07/28/2024 12:47 PM EDT [facility] NRBC 0.0 <1.0 % LAB HEMETOLOGY METHOD 07/28/2024 12:47 PM EDT [facility] NRBC Absolute 0.00 <0.10 K/mcL LAB HEMETOLOGY METHOD 07/28/2024 12:47 PM EDT [facility] Blood Venous blood specimen / Unknown Venipuncture / Unknown 07/28/2024 5:15 AM EDT 07/28/2024 11:29 AM EDT us Torrey Kwok MD LAB BLOOD ORDERABLES Final Resul t [facility] [address] [place] [address], documented in this encounter Visit Diagnoses Diagnosis 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, CMS/HCC V28) Essential (primary) hypertension Unspecified essential hypertension Heart failure, unspecified (CMS/HCC V24, CMS/HCC V28) Heart failure, unspecified 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
--- OUTSIDE RECORDS SUMMARY | 2025-02-12 22:24 | XMS_ITS | Clinical Summary ---
Author Organization 299 [facility] Address [address] [place] [address] Phone Care Team Providers Care Tube Cutter Name Role Phone Torrey Kwok MD Primary Care Provider [phone] Encounters Date Type Department Care Team Description 02/06/2025 Lab Requisition [facility] [place] [facility] Lab [address] [place] [address] Torrey Kwok MD Type 2 diabetes mellitus with diabetic chronic kidney disease ([facility] V24, [facility] V28); Essential (primary) hypertension; Heart failure, unspecified ([facility] V24, 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 V24, [facility] V28); Hypothyroidism, unspecified 02/02/2025 Lab Requisition [facility] [place] [facility] Lab [address] [place] [address] Torery Kwok MD Type 2 diabetes mellitus with diabetic chronic kidney disease ([facility] V24, [facility] V28); Essential (primary) hypertension; Heart failure, unspecified ([facility] V24, 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 V24, CMS/HCC V28) 01/30/2025 Lab Requisition [facility] [place] [facility] Lab [address] [place] [address] Torrey Kwok MD Type 2 diabetes mellitus with diabetic chronic kidney disease ([facility] V24, [facility] V28); Essential (primary) hypertension; Heart failure, unspecified ([facility] V24, 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 V24, [facility] V28) 01/30/2025 Lab Requisition [facility] [place] [facility] Lab [address] [place] [phone] 01/30/2025 Lab Requisition [facility] [place] [facility] [address] [place] [phone] Torrey Kwok MD Fever, unspecified 01/29/2025 Lab Requisition [facility] [place] [facility] Lab [address] [place] [phone] Torrey Kwok MD Abnormal results of thyroid function studies 01/24/2025 Lab Requisition [facility] [place] [facility] Lab [address] [place] [phone] Torrey Kwok MD Type 2 diabetes mellitus with diabetic chronic kidney disease ([facility] V24, [facility] V28); Essential (primary) hypertension; Heart failure, unspecified ([facility] V24, 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 V24, [facility] V28) 01/16/2025 Lab Requisition [facility] [place] [facility] Lab [address] [place] [phone] Torrey Kwok MD Type 2 diabetes mellitus with diabetic chronic kidney disease ([facility] V24, [facility] V28); Essential (primary) hypertension; Heart failure, unspecified ([facility] V24, [facility] V28); Type 2 diabetes mellitus with unspecified diabetic retinopathy without macular edema ([facility] V24, [facility] V28) 01/10/2025 Lab Requisition [facility] [place] [facility] Lab [address] [place] [address] Torrey Kwok MD Type 2 diabetes mellitus with diabetic chronic kidney disease ([facility] V24, [facility] V28); Essential (primary) hypertension; Heart failure, unspecified ([facility] V24, 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 ([facility]/HCC V24, CMS/HCC V28) 01/02/2025 Lab Requisition [facility] [place] [facility] Lab [address] [place] [address] Torrey Kwok MD Type 2 diabetes mellitus without complications ([facility]/HCC V24, [facility]/HCC V28) 12/26/2024 Lab Requisition [facility] [place] [facility] Lab [address] [place] [address] Torrey Kwok MD Essential (primary) hypertension; Heart failure, unspecified ([facility]/HCC V24, [facility]/HCC V28); Type 2 diabetes mellitus with diabetic chronic kidney disease ([facility] V24, 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 V24, [facility]/HCC V28) 12/13/2024 Lab Requisition [facility] [place] [facility] Lab [address] [place] [phone] Torrey Kwok MD Type 2 diabetes mellitus with diabetic chronic kidney disease ([facility]/HCC V24, [facility]/HCC V28); Essential (primary) hypertension; Heart failure, unspecified (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 V24, [facility] V28); Essential (primary) hypertension; Heart failure, unspecified ([facility] V24, 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 V24, [facility] V28) 11/28/2024 Lab Requisition [facility] [place] [facility] Lab [address] [place] [phone] Torrey Kwok MD Type 2 diabetes mellitus with diabetic chronic kidney disease ([facility] V24, [facility] V28); Essential (primary) hypertension; Heart failure, unspecified (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 V24, [facility]/HCC V28) 11/22/2024 Lab Requisition [facility] [place] [facility] Lab [address] [facility] [place] [phone] Torrey Kwok MD Type 2 diabetes mellitus with diabetic chronic kidney disease ([facility] V24, [facility] V28); Essential (primary) hypertension; Heart failure, unspecified (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 V24, [facility] V28); Essential (primary) hypertension; Heart failure, unspecified ([facility] V24, 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 V24, [facility] V28) from Last 3 Months [...] history exists Hypertension/CHF/CAD Annual BMP Blood Test 02/09/2026 02/09/2025, 02/03/2025, 01/29/2025, Additional history exists HIB Vaccines Aged Out [...] Procedure Name Priority Date/Time Associated Diagnosis Comments TRIIODOTHYRONINE FREE Routine 02/09/2025 5:08 AM EST Type 2 diabetes mellitus with diabetic chronic kidney disease ([facility] V24, [facility] V28) Essential (primary) hypertension Heart failure, unspecified ([facility] V24, 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 V24, [facility] V28) Hypothyroidism, unspecified FREE THYROXINE WITH REFLEX TO FREE TRIIODOTHYRONINE Routine 02/09/2025 5:08 AM EST Type 2 diabetes mellitus with diabetic chronic kidney disease ([facility] V24, [facility] V28) Essential (primary) hypertension Heart failure, unspecified ([facility] V24, 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 V24, [facility] V28) Hypothyroidism, unspecified THYROID STIMULATING HORMONE WITH REFLEX TO FREE T4 AND FREE T3 Routine 02/09/2025 5:08 AM EST Type 2 diabetes mellitus with diabetic chronic kidney disease ([facility] V24, [facility] V28) Essential (primary) hypertension Heart failure, unspecified ([facility] V24, 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 V24, 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 V24, CMS/HCC V28) Hypothyroidism, unspecified BASIC METABOLIC PANEL Routine 02/09/2025 5:08 AM EST 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, CMS/HCC V28) Essential (primary) hypertension Heart failure, unspecified (CMS/HCC V24, CMS/HCC V28) 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 V24, CMS/HCC V28) Hypothyroidism, unspecified BASIC METABOLIC PANEL Routine 02/03/2025 8:05 AM EDT 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, CMS/HCC V28) Essential (primary) hypertension Heart failure, unspecified (CMS/HCC V24, CMS/HCC V28) 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 V24, CMS/HCC V28) COMPLETE BLOOD COUNT Routine 02/02/2025 4:47 AM EDT 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, CMS/HCC V28) Essential (primary) hypertension Heart failure, unspecified (CMS/HCC V24, CMS/HCC V28) 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 V24, CMS/HCC V28) URINALYSIS WITH REFLEX MICROSCOPIC AND CULTURE Routine 01/30/2025 7:00 AM EDT Fever, unspecified FROST URINE CULTURE TUBE Routine 01/31/20 7:00 AM EDT Fever, unspecified URINALYSIS WITH REFLEX MICROSCOPIC AND CULTURE Routine 01/30/2025 7:00 AM EDT Fever, unspecified CULTURE URINE Routine 01/30/2025 7:00 AM EDT Fever, unspecified BASIC METABOLIC PANEL Routine 01/29/2025 9:09 AM EDT Abnormal results of thyroid function studies THYROID STIMULATING HORMONE Routine 01/26/2025 7:10 AM EDT 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, CMS/HCC V28) Essential (primary) hypertension Heart failure, unspecified (CMS/HCC V24, CMS/HCC V28) 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 V24, CMS/HCC V28) COMPLETE BLOOD COUNT Routine 01/26/2025 7:10 AM EDT 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, CMS/HCC V28) Essential (primary) hypertension Heart failure, unspecified (CMS/HCC V24, CMS/HCC V28) 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 V24, CMS/HCC V28) BASIC METABOLIC PANEL Routine 01/26/2025 7:10 AM EDT 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, CMS/HCC V28) Essential (primary) hypertension Heart failure, unspecified (CMS/HCC V24, CMS/HCC V28) 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 V24, CMS/HCC V28) COMPLETE BLOOD COUNT Routine 01/19/2025 10:08 AM EDT 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, CMS/HCC V28) Essential (primary) hypertension Heart failure, unspecified (CMS/HCC V24, CMS/HCC V28) 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 V24, CMS/HCC V28) BASIC METABOLIC PANEL Routine 01/19/2025 10:08 AM EDT 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, CMS/HCC V28) Essential (primary) hypertension Heart failure, unspecified (CMS/HCC V24, CMS/HCC V28) 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 V24, CMS/HCC V28) COMPLETE BLOOD COUNT Routine 12/29/2024 9:16 AM [...] from Last 3 Months Results * (ABNORMAL) Thyroid stimulating hormone with reflex to free t4 and free t3 (02/09/2025 5:08 AM EST) [facility] TSH 14.02(H) 0.40 - 4.00 mcIU/mL LAB CHEMISTRY METHOD 02/09/2025 2:[address] [facility] Blood Venous blood specimen / Unknown Venipuncture / Unknown 02/09/2025 5:08 AM EST 02/09/2025 10:54 AM EST us Torrey Kwok MD LAB BLOOD ORDERABLES Final Resul t Performing Organization Address [facility] Co de Phone Number [facility] [address] [place] [address], [place] [phone] * Free thyroxine with reflex to free triiodothyronine (02/09/2025 5:08 AM EST) Pathologist [facility] Free T4 1.23 0.70 - 1.80 ng/dL LAB CHEMISTRY METHOD 02/09/2025 2:[address] [facility] Blood Venous blood specimen / Unknown Venipuncture / Unknown 02/09/2025 5:08 AM EST 02/09/2025 10:54 AM EST us Torrey Kwok MD LAB BLOOD ORDERABLES Final Resul t Performing Organization Address [facility] de Phone Number [facility] [address] [place] [address], [place] [phone] * (ABNORMAL) Complete blood count (02/09/2025 5:08 AM EST) Only the most recent of10 resultswithin the time period is included. Pathologist [facility] WBC 6.8 4.8 - 10.8 K/mcL LAB HEMETOLOGY METHOD 02/09/2025 11:44 AM [facility] RBC 3.20(L) 3.80 - 4.80 M/[facility] LAB HEMETOLOGY METHOD 02/09/2025 11:44 AM [facility] Hemoglobin 9.7(L) 11.5 - 16.0 g/dL LAB HEMETOLOGY METHOD 02/09/2025 11:44 AM [facility] Hematocrit 30.2(L) 35.0 - 47.0 % LAB HEMETOLOGY METHOD 02/09/2025 11:44 AM [facility] MCV 95.6 79.0 - 98.0 FL LAB HEMETOLOGY METHOD 02/09/2025 11:44 AM [facility] MCH 30.7 27.0 - 32.0 pcg LAB HEMETOLOGY METHOD 02/09/2025 11:44 AM [facility] MCHC 32.1 32.0 - 37.0 g/dL LAB HEMETOLOGY METHOD 02/09/2025 11:44 AM [facility] RDW 16.4(H) 11.0 - 15.0 % LAB HEMETOLOGY METHOD 02/09/2025 11:44 AM [facility] Platelets 265 130 - 400 K/mcL LAB HEMETOLOGY METHOD 02/09/2025 11:44 AM [facility] MPV 11.1(H) 7.0 - 11.0 FL LAB HEMETOLOGY METHOD 02/09/2025 11:44 AM [facility] NRBC 0.0 <1.0 % LAB HEMETOLOGY METHOD 02/09/2025 11:44 AM [facility] NRBC Absolute 0.00 <0.10 K/mcL LAB HEMETOLOGY METHOD 02/09/2025 11:44 AM [facility] Blood Venous blood specimen / Unknown Venipuncture / Unknown 02/09/2025 5:08 AM EST 02/09/2025 10:54 AM EST us Torrey Kwok MD LAB BLOOD ORDERABLES Final Resul t [facility] [address] [place] [address], * (ABNORMAL) Triiodothyronine free (02/09/2025 5:08 AM EST) T3, Free 143(L) 230 - 420 pcg/dL LAB CHEMISTRY METHOD 02/09/2025 4:13 PM [facility] Blood Venous blood specimen / Unknown Venipuncture / Unknown 02/09/2025 5:08 AM EST 02/09/2025 10:54 AM EST us Torrey Kwok MD LAB BLOOD ORDERABLES Final Resul t [facility] [address] [place] [address], [place] [phone] * (ABNORMAL) Basic metabolic panel (02/09/2025 5:08 AM EST) Only the most recent of11 resultswithin the time period is included. Sodium 134 133 - 145 mmol/L LAB CHEMISTRY METHOD 02/09/2025 12:19 PM [facility] Potassium 4.1 3.5 - 5.5 mmol/L LAB CHEMISTRY METHOD 02/09/2025 12:19 PM [facility] Chloride 99 96 - 110 mmol/L LAB CHEMISTRY METHOD 02/09/2025 12:19 PM [facility] CO2 26 21 - 32 mmol/L LAB CHEMISTRY METHOD 02/09/2025 12:19 PM [facility] Anion Gap 9 3 - 11 LAB CHEMISTRY METHOD 02/09/2025 12:19 PM [facility] Glucose 258(H) 70 - 100 mg/dL LAB CHEMISTRY METHOD 02/09/2025 12:19 PM [facility] BUN 40(H) 5 - 25 mg/dL LAB CHEMISTRY METHOD 02/09/2025 12:19 PM [facility] Creatinine 1.63(H) 0.50 - 1.10 mg/dL LAB CHEMISTRY METHOD 02/09/2025 12:19 PM [facility] eGFR 30(L) >=60 mL/min/1. 73m2 LAB CHEMISTRY METHOD 02/09/2025 12:[address] [facility] Comment:Calculation based on the Chronic Kidney Disease Epidemiology Collaboration (CKD-EPI) equation refit without adjustment for race. BUN/Creatinine Ratio 24.5 LAB CHEMISTRY METHOD 02/09/2025 12:19 PM [facility] Calcium 8.3(L) 8.5 - 10.5 mg/dL LAB CHEMISTRY METHOD 02/09/2025 12:19 PM [facility] Blood Venous blood specimen / Unknown Venipuncture / Unknown 02/09/2025 5:08 AM EST 02/09/2025 10:54 AM EST us Torrey Kwok MD LAB BLOOD ORDERABLES Final Resul t [facility] [address] [place] [address], [place] [phone] * (ABNORMAL) Urinalysis with reflex microscopic and culture (01/30/2025 7:00 AM EDT) Specific [place] Urine 1.019 1.003 - 1.030 LAB URINALYSIS - AUTOMATED METHOD 01/30/2025 9:54 AM [facility] pH, Urine 7.5 5.0 - 8.0 pH LAB URINALYSIS - AUTOMATED METHOD 01/30/2025 9:54 AM [facility] Leukocytes, Urine Moderate(A) Negative LAB URINALYSIS - AUTOMATED METHOD 01/30/2025 9:54 AM [facility] Nitrite, Urine Positive(A) Negative LAB URINALYSIS - AUTOMATED METHOD 01/30/2025 9:54 AM [facility] Protein, Urine 30(A) <=Trace mg/dL LAB URINALYSIS - AUTOMATED METHOD 01/30/2025 9:54 AM [facility] Glucose, Urine >=1000(A) Negative mg/dL LAB URINALYSIS - AUTOMATED METHOD 01/30/2025 9:54 AM [facility] Ketones, Urine Trace(A) Negative mg/dL LAB URINALYSIS - AUTOMATED METHOD 01/30/2025 9:54 AM [facility] Urobilinogen , Urine 0.2 0.2 - 1.0 mg/dL LAB URINALYSIS - AUTOMATED METHOD 01/30/2025 9:54 AM [facility] Bilirubin, Urine Negative Negative LAB URINALYSIS - AUTOMATED METHOD 01/30/2025 9:54 AM [facility] Blood, Urine Moderate(A) Negative LAB URINALYSIS - AUTOMATED METHOD 01/30/2025 9:54 AM [facility] RBC, Urine 58.4(H) 0 - 4 /HPF LAB URINALYSIS - AUTOMATED METHOD 01/30/2025 9:54 AM [facility] WBC, Urine 547.4(H) 0 - 4 /HPF LAB URINALYSIS - AUTOMATED METHOD 01/30/2025 9:54 AM [facility] Squamous Epithelial, Urine 8 0 - 60 /LPF LAB URINALYSIS - AUTOMATED METHOD 01/30/2025 9:54 AM [facility] Bacteria, Urine Many(A) Negative /HPF LAB URINALYSIS - AUTOMATED METHOD 01/30/2025 9:54 AM [facility] Hyaline Casts, Urine 0.4 0 - 3 /LPF LAB URINALYSIS - AUTOMATED METHOD 01/30/2025 9:54 AM [facility] Urine Urine specimen obtained by clean catch procedure / Unknown Non-blood Collection / Unknown 01/30/2025 7:00 AM EDT 01/30/2025 9:09 AM EDT us Torrey Kwok MD LAB URINE ORDERABLES Final Resul t [facility] [address] [place] [address], [place] [phone] * Frost urine culture tube (01/30/2025 7:00 AM EDT) Extra Tube Hold for add-ons. 01/30/2025 11:[address] [facility] Comment:Auto resulted. Urine Urine specimen obtained by clean catch procedure / Unknown Non-blood Collection / Unknown 01/30/2025 7:00 AM EDT 01/30/2025 9:09 AM EDT us Torrey Kwok MD LAB URINE ORDERABLES Final Resul t [facility] [address] [place] [place] [address], [place] [phone] * (ABNORMAL) Culture urine (01/30/2025 7:00 AM EDT) Culture, Urine >=100,000 CFU/mL Escherichia coli(A) ANDRE 02/01/2025 8:[address] [facility] Urine Urine specimen obtained by clean catch procedure / Unknown Non-blood Collection / Unknown 01/30/2025 7:00 AM EDT 01/30/2025 9:[address] [facility] - 02/01/2025 8:03 AM EDT Additional colony types present in insignificant amounts. Organism Antibiotic Method Susceptibility Escherichia coli Amoxicillin/Clavulanate ANDRE 4 ug/ml: Susceptible Escherichia coli Ampicillin/Sulbactam ANDRE 16 ug/ml: Intermediate Escherichia coli Piperacillin/Tazobactam ANDRE <=4 ug/ml: Susceptible Escherichia coli Cefazolin (Urine) ANDRE 4 ug/ml: Susceptible Escherichia coli Cefoxitin ANDRE <=4 ug/ml: Susceptible Escherichia coli Ceftazidime ANDRE <=0.5 ug/ml: Susceptible Escherichia coli Ceftriaxone ANDRE <=0.25 ug/ml: Susceptible Escherichia coli Cefepime ANDRE <=0.12 ug/ml: Susceptible Escherichia coli Meropenem ANDRE <=0.25 ug/ml: Susceptible Escherichia coli Amikacin ANDRE 2 ug/ml: Susceptible Escherichia coli Gentamicin ANDRE >=16 ug/ml: Resistant Escherichia coli Ciprofloxacin ANDRE <=0.06 ug/ml: Susceptible Escherichia coli Levofloxacin ANDRE <=0.12 ug/ml: Susceptible Escherichia coli Nitrofurantoin ANDRE <=16 ug/ml: Susceptible Escherichia coli Trimethoprim/Sulfamethoxazole ANDRE >=320 ug/ml: Resistant us Torrey Kwok MD LAB MICROBIOLOGY - GENERAL ORDER GENET Final Result Performing Organization Address [facility] de Phone Number [facility] [address] [place] [address], [place] [phone] * (ABNORMAL) Thyroid stimulating hormone (01/26/2025 7:10 AM EDT) Pathologist [facility] TSH 62.60(H) 0.40 - 4.00 mcIU/mL LAB CHEMISTRY METHOD 01/26/2025 9:[address] [facility] Blood Venous blood specimen / Unknown Venipuncture / Unknown 01/26/2025 7:10 AM EDT 01/26/2025 10:00 AM EDT us Torrey Kwok MD LAB BLOOD ORDERABLES Final Resul t Performing Organization Address [facility] de Phone Number [facility] [address] [place] [address], [place] [phone] * (ABNORMAL) Hemoglobin A1c (12/22/2024 6:38 AM EDT) Only the most recent of2 resultswithin the time period is included. Hemoglobin A1C 9.2(H) <6.5 % LAB CHEMISTRY METHOD 12/22/2024 1:[address] [facility] Mean Bld Glu Estim. 217 mg/dL LAB CHEMISTRY METHOD 12/22/2024 1:[address] [facility] Blood Venous blood specimen / Unknown Venipuncture / Unknown 12/22/2024 6:38 AM EDT 12/22/2024 11:02 AM EDT Torrey Kwok MD LAB BLOOD ORDERABLES Final Resul t [facility] [address] [place] [address], [place] [phone] from Last 3 Months Insurance MEDICARE [facility] Care Teams Tube Cutter Relationship Specialty Start Date End Date Torrey Kwok MD [address] [facility] [address] [place] [address] PCP - General Geriatric Medicine 04/25/24
--- OUTSIDE RECORDS SUMMARY | 2025-02-12 22:25 | XMS_ITS | Encounter Summary ---
Author Organization [facility] Address [address] [place] [address] Care Team Providers Care Field Administrator Name Role Phone Torrey Kwok MD Primary Care Provider [phone] Encounter Details Date Type Department Care Team (Late st Contact Info) Description 06/20/2024 Lab Requisition [facility] - Main Lab 299 [facility] [place] [address] Torrey Kwok MD [address] [place], [place] [id number] Essential (primary) hypertension; Type 2 diabetes mellitus [...] 06/20/2024 11:38 AM EDT [facility] Potassium 4.1 3.5 - 5.5 mmol/L LAB CHEMISTRY METHOD 06/20/2024 11:38 AM [facility] Chloride 104 96 - 110 mmol/L LAB CHEMISTRY METHOD 06/20/2024 11:38 AM [facility] CO2 29 21 - 32 mmol/L LAB CHEMISTRY METHOD 06/20/2024 11:38 AM [facility] Anion Gap 5 3 - 11 LAB CHEMISTRY METHOD 06/20/2024 11:38 AM [facility] Glucose 53(L) 70 - 100 mg/dL LAB CHEMISTRY METHOD 06/20/2024 11:38 AM [facility] BUN 39(H) 5 - 25 mg/dL LAB CHEMISTRY METHOD 06/20/2024 11:38 AM [facility] Creatinine 0.97 0.50 - 1.10 mg/dL LAB CHEMISTRY METHOD 06/20/2024 11:38 AM [facility] eGFR 57(L) >=60 mL/min/1. 73m2 LAB CHEMISTRY METHOD 06/20/2024 11:38 AM [facility] Comment:Calculation based on the Chronic Kidney Disease Epidemiology Collaboration (CKD-EPI) equation refit without adjustment for race. BUN/Creatinine Ratio 40.2 LAB CHEMISTRY METHOD 06/20/2024 11:38 AM [facility] Calcium 9.2 8.5 - 10.5 mg/dL LAB CHEMISTRY METHOD 06/20/2024 11:38 AM [facility] Blood Venous blood specimen / Unknown Venipuncture / Unknown 06/20/2024 6:10 AM EDT 06/20/2024 10:40 AM EDT us Torrey Kwok MD LAB BLOOD ORDERABLES Final Resul t [facility] [address] [place], [place] [address] [phone] * (ABNORMAL) Complete blood count (06/20/2024 6:10 AM EDT) [facility] Signature WBC 6.5 4.8 - 10.8 K/mcL LAB HEMETOLOGY METHOD 06/20/2024 11:08 AM [facility] RBC 3.70(L) 3.80 - 4.80 M/mcL LAB HEMETOLOGY METHOD 06/20/2024 11:08 AM [facility] Hemoglobin 12.0 11.5 - 16.0 g/dL LAB HEMETOLOGY METHOD 06/20/2024 11:08 AM [facility] Hematocrit 37.1 35.0 - 47.0 % LAB HEMETOLOGY METHOD 06/20/2024 11:08 AM [facility] MCV 100.5(H) 79.0 - 98.0 FL LAB HEMETOLOGY METHOD 06/20/2024 11:08 AM [facility] MCH 32.5(H) 27.0 - 32.0 pcg LAB HEMETOLOGY METHOD 06/20/2024 11:08 AM [facility] MCHC 32.3 32.0 - 37.0 g/dL LAB HEMETOLOGY METHOD 06/20/2024 11:08 AM [facility] RDW 18.3(H) 11.0 - 15.0 % LAB HEMETOLOGY METHOD 06/20/2024 11:08 AM [facility] Platelets 313 130 - 400 K/mcL LAB HEMETOLOGY METHOD 06/20/2024 11:08 AM [facility] MPV 10.8 7.0 - 11.0 FL LAB HEMETOLOGY METHOD 06/20/2024 11:08 AM [facility] NRBC 0.0 <1.0 % LAB HEMETOLOGY METHOD 06/20/2024 11:08 AM EDT [facility] NRBC Absolute 0.00 <0.10 K/mcL LAB HEMETOLOGY METHOD 06/20/2024 11:08 AM EDT [facility] Blood Venous blood specimen / Unknown Venipuncture / Unknown 06/20/2024 6:10 AM EDT 06/20/2024 10:40 AM EDT us Torrey Kwok MD LAB BLOOD ORDERABLES Final Resul t [facility] [address] [place] [address], documented in this encounter Visit Diagnoses Diagnosis Essential (primary) hypertension Unspecified essential hypertension Type 2 diabetes mellitus without complications (CMS/HCC V24, CMS/HCC V28) documented in this encounter Additional Health Concerns Infection Onset Date Last Indicated Resolved Time Respiratory Rule-Out 07/12/2024 07/11/2024 025 11:25 AM EDT documented as of this encounter Care Teams Field Administrator Relationship Specialty Start Date End Date Torrey Kwok MD [address] [place] [address] [address] [place] [address] PCP - General Geriatric Medicine 04/25/24 documented as of this encounter
--- OUTSIDE RECORDS SUMMARY | 2025-02-12 22:25 | XMS_ITS | Encounter Summary ---
Author Organization [facility] Address [address] [place] [address] Care Team Providers Care Driver Utility Worker Name Role Phone Torrey Kwok MD Primary Care Provider [phone] Encounter Details Date Type Department Care Team (Late st Contact Info) Description 04/30/2024 Lab Requisition [facility] - Main Lab 299 [facility] [place] [address] Torrey Kwok MD [address] [place], [place] [id number] Type 2 diabetes mellitus without complications (CMS/HCC [...] EST Type 2 diabetes mellitus without complications (CMS/[facility]) documented in this encounter Results * (ABNORMAL) Complete blood count (04/30/2024 6:31 AM EST) WBC 6.6 4.8 - 10.8 K/[facility] LAB HEMETOLOGY METHOD 04/30/2024 2:[address] [facility] RBC 3.40(L) 3.80 - 4.80 M/[facility] LAB HEMETOLOGY METHOD 04/30/2024 2:[address] [facility] Hemoglobin 10.7(L) 11.5 - 16.0 g/dL LAB HEMETOLOGY METHOD 04/30/2024 2:51 PM [facility] Hematocrit 34.7(L) 35.0 - 47.0 % LAB HEMETOLOGY METHOD 04/30/2024 2:51 PM [facility] MCV 101.5(H) 79.0 - 98.0 FL LAB HEMETOLOGY METHOD 04/30/2024 2:51 PM [facility] MCH 31.3 27.0 - 32.0 pcg LAB HEMETOLOGY METHOD 04/30/2024 2:51 PM [facility] MCHC 30.8(L) 32.0 - 37.0 g/dL LAB HEMETOLOGY METHOD 04/30/2024 2:51 PM [facility] RDW 17.1(H) 11.0 - 15.0 % LAB HEMETOLOGY METHOD 04/30/2024 2:51 PM [facility] Platelets 391 130 - 400 K/mcL LAB HEMETOLOGY METHOD 04/30/2024 2:51 PM [facility] MPV 10.8 7.0 - 11.0 FL LAB HEMETOLOGY METHOD 04/30/2024 2:51 PM [facility] NRBC 0.5 <1.0 % LAB HEMETOLOGY METHOD 04/30/2024 2:51 PM [facility] NRBC Absolute 0.03 <0.10 K/mcL LAB HEMETOLOGY METHOD 04/30/2024 2:51 PM [facility] Blood Venous blood specimen / Unknown Venipuncture / Unknown 04/30/2024 6:31 AM EST 04/30/2024 1:53 PM EST us Torrey Kwok MD LAB BLOOD ORDERABLES Final Resul t [facility] [address] [place] [address], documented in this encounter Visit Diagnoses Diagnosis Type 2 diabetes mellitus without complications (CMS/[facility] V24, CMS/[facility] V28) documented in this encounter Additional Health Concerns Infection Onset Date Last Indicated Resolved Time Respiratory Rule-Out 07/12/2024 07/11/2024 025 11:25 AM EDT documented as of this encounter Care Teams Driver Utility Worker Relationship Specialty Start Date End Date Torrey Kwok MD [address] [place] [address] [address] [place] [address] PCP - General Geriatric Medicine 04/25/24 documented as of this encounter
--- OUTSIDE RECORDS SUMMARY | 2025-02-12 22:25 | XMS_ITS | Encounter Summary ---
Author Organization [facility] Address [address] [place] [address] Care Team Providers Care Mineral Industry Teacher Name Role Phone Torrey Kwok MD Primary Care Provider [phone] Encounter Details Date Type Department Care Team (Late st Contact Info) Description 01/29/2025 Lab Requisition [facility] Lab [address] [facility] [place] [address] Torrey Kwok MD [address] [place], [place] [id number] Abnormal results of thyroid function studies Social History Tobacco Use Types Packs/Day Years [...] Associated Diagnosis Comments BASIC METABOLIC PANEL Routine 01/29/2025 9:09 AM EDT Abnormal results of thyroid function studies documented in this encounter Results * (ABNORMAL) Basic metabolic panel (01/29/2025 9:09 AM EDT) Sodium 137 133 - 145 mmol/L LAB CHEMISTRY METHOD 01/29/2025 10:56 AM EDT [facility] Potassium 4.0 3.5 - 5.5 mmol/L LAB CHEMISTRY METHOD 01/29/2025 10:56 AM EDT [facility] Chloride 101 96 - 110 mmol/L LAB CHEMISTRY METHOD 01/29/2025 10:56 AM EDT [facility] CO2 29 21 - 32 mmol/L LAB CHEMISTRY METHOD 01/29/2025 10:56 AM [facility] Anion Gap 7 3 - 11 LAB CHEMISTRY METHOD 01/29/2025 10:56 AM [facility] Glucose 194(H) 70 - 100 mg/dL LAB CHEMISTRY METHOD 01/29/2025 10:56 AM [facility] BUN 28(H) 5 - 25 mg/dL LAB CHEMISTRY METHOD 01/29/2025 10:56 AM [facility] Creatinine 1.16(H) 0.50 - 1.10 mg/dL LAB CHEMISTRY METHOD 01/29/2025 10:56 AM [facility] eGFR 45(L) >=60 mL/min/1. 73m2 LAB CHEMISTRY METHOD 01/29/2025 10:56 AM [facility] Comment:Calculation based on the Chronic Kidney Disease Epidemiology Collaboration (CKD-EPI) equation refit without adjustment for race. BUN/Creatinine Ratio 24.1 LAB CHEMISTRY METHOD 01/29/2025 10:56 AM [facility] Calcium 9.2 8.5 - 10.5 mg/dL LAB CHEMISTRY METHOD 01/29/2025 10:56 AM [facility] Blood Venous blood specimen / Unknown Venipuncture / Unknown 01/29/2025 9:09 AM EDT 01/29/2025 9:56 AM EDT us Torrey Kwok MD LAB BLOOD ORDERABLES Final Resul t [facility] [address] [place] [address], [place] [phone] documented in this encounter Visit Diagnoses Diagnosis Abnormal results of thyroid function studies Nonspecific abnormal results of thyroid function study documented in this encounter Care Teams Mineral Industry Teacher Relationship Specialty Start Date End Date Torrey Kwok MD [address] [place] [address] [address] [place] [address] PCP - General Geriatric Medicine 04/25/24 documented as of this encounter
--- OUTSIDE RECORDS SUMMARY | 2025-02-12 22:25 | XMS_ITS | Encounter Summary ---
Author Organization [facility] Address [address] [place] [address] Care Team Providers Care Dump Truck Driver Off Highway Name Role Phone Torrey Kwok MD Primary Care Provider [phone] Encounter Details Date Type Department Care Team (Late st Contact Info) Description 06/21/[address] [facility] - Main Lab 299 [facility] [place] [address] Torrey Kwok MD [address] [place], [place] [id number] Type 2 diabetes mellitus with diabetic chronic [...] (CMS/HCC) Essential (primary) hypertension Heart failure, unspecified ([facility]/HCC) documented in this encounter Results * (ABNORMAL) Thyroid stimulating hormone (06/23/2024 5:47 AM EDT) Pathologist [facility] TSH 21.48(H) 0.40 - 4.00 mcIU/mL LAB CHEMISTRY METHOD 06/23/2024 1:59 PM EDT [facility] Blood Venous blood specimen / Unknown Venipuncture / Unknown 06/23/2024 5:47 AM EDT 06/23/2024 11:30 AM EDT Torrey Kwok MD LAB BLOOD ORDERABLES Final Resul t [facility] [address] [place] [address], * (ABNORMAL) Basic metabolic panel (06/23/2024 5:47 AM EDT) Pathologist [facility] Sodium 137 133 - 145 mmol/L LAB CHEMISTRY METHOD 06/23/2024 1:47 PM T [facility] Potassium 3.9 3.5 - 5.5 mmol/L LAB CHEMISTRY METHOD 06/23/2024 1:47 PM T [facility] Chloride 102 96 - 110 mmol/L LAB CHEMISTRY METHOD 06/23/2024 1:47 PM T [facility] CO2 30 21 - 32 mmol/L LAB CHEMISTRY METHOD 06/23/2024 1:47 PM EDT [facility] Anion Gap 5 3 - 11 LAB CHEMISTRY METHOD 06/23/2024 1:47 PM [facility] Glucose 70 70 - 100 mg/dL LAB CHEMISTRY METHOD 06/23/2024 1:47 PM T [facility] BUN 33(H) 5 - 25 mg/dL LAB CHEMISTRY METHOD 06/23/2024 1:47 PM EDT [facility] Creatinine 0.86 0.50 - 1.10 mg/dL LAB CHEMISTRY METHOD 06/23/2024 1:47 PM EDT [facility] eGFR 65 >=60 mL/min/1. 73m2 LAB CHEMISTRY METHOD 06/23/2024 1:47 PM EDT [facility] Comment:Calculation based on the Chronic Kidney Disease Epidemiology Collaboration (CKD-EPI) equation refit without adjustment for race. BUN/Creatinine Ratio 38.4 LAB CHEMISTRY METHOD 06/23/2024 1:47 PM EDT [facility] Calcium 8.7 8.5 - 10.5 mg/dL LAB CHEMISTRY METHOD 06/23/2024 1:47 PM EDT [facility] Blood Venous blood specimen / Unknown Venipuncture / Unknown 06/23/2024 5:47 AM EDT 06/23/2024 11:30 AM EDT Torrey Kwok MD LAB BLOOD ORDERABLES Final Resul t [facility] [address] [place] [address], * (ABNORMAL) Complete blood count (06/23/2024 5:47 AM EDT) WBC 5.9 4.8 - 10.8 K/mcL LAB HEMETOLOGY METHOD 06/23/2024 12:35 PM EDT [facility] RBC 3.00(L) 3.80 - 4.80 M/mcL LAB HEMETOLOGY METHOD 06/23/2024 12:35 PM EDT [facility] Hemoglobin 9.6(L) 11.5 - 16.0 g/dL LAB HEMETOLOGY METHOD 06/23/2024 12:35 PM EDT [facility] Hematocrit 31.2(L) 35.0 - 47.0 % LAB HEMETOLOGY METHOD 06/23/2024 12:35 PM EDT [facility] MCV 103.3(H) 79.0 - 98.0 FL LAB HEMETOLOGY METHOD 06/23/2024 12:35 PM EDT [facility] MCH 31.8 27.0 - 32.0 pcg LAB HEMETOLOGY METHOD 06/23/2024 12:35 PM EDT [facility] MCHC 30.8(L) 32.0 - 37.0 g/dL LAB HEMETOLOGY METHOD 06/23/2024 12:35 PM EDT [facility] RDW 18.7(H) 11.0 - 15.0 % LAB HEMETOLOGY METHOD 06/23/2024 12:35 PM EDT [facility] Platelets 244 130 - 400 K/mcL LAB HEMETOLOGY METHOD 06/23/2024 12:35 PM EDT [facility] MPV 11.0 7.0 - 11.0 FL LAB HEMETOLOGY METHOD 06/23/2024 12:35 PM EDT [facility] NRBC 0.0 <1.0 % LAB HEMETOLOGY METHOD 06/23/2024 12:35 PM EDT [facility] NRBC Absolute 0.00 <0.10 K/mcL LAB HEMETOLOGY METHOD 06/23/2024 12:35 PM EDT [facility] Blood Venous blood specimen / Unknown Venipuncture / Unknown 06/23/2024 5:47 AM EDT 06/23/2024 11:30 AM EDT us Torrey Kwok MD LAB BLOOD ORDERABLES Final Resul t [facility] [address] [place] [address], documented in this encounter Visit Diagnoses Diagnosis 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, CMS/HCC V28) Essential (primary) hypertension Unspecified essential hypertension Heart failure, unspecified ([facility] V24, [facility] V28) Heart failure, unspecified documented in this encounter Additional Health Concerns Infection Onset Date Last Indicated Resolved Time Respiratory Rule-Out 07/12/2024 07/11/2024 025 11:25 AM EDT documented as of this encounter Care Teams Dump Truck Driver Off Highway Relationship Specialty Start Date End Date Torrey Kwok MD [address] [place] [address] [address] [place] [address] PCP - General Geriatric Medicine 04/25/24 documented as of this encounter
--- OUTSIDE RECORDS SUMMARY | 2025-02-12 22:25 | XMS_ITS | Patient Health Record ---
Author Organization [facility] Address [address] [place] [address] Care Team Providers Care Pet Technologist Name Role Phone Po Monique HODGE Primary Care Provider John Moore Jr Unavailable Allergies Allergen (clinical drug ingredient) Drug/Non Drug Allergy documented on EMR Reaction Allergy Type Onset Date Status codeine Codeine Sulfate Unknown Drug Allergy A ctive Reason For Referral No Information Medications Medication SIG (Take, Route, Frequency, Duration) Notes Start Date End Date Status Omeprazole 20 MG 1 capsule Orally; Duration: 30 days 10/30/2018 Active HumaLOG 100 UNIT/ML TID Subcutaneous as directed Active Furosemide 40 MG 1 tablet Orally Twic e a day Active Losartan Potassium 100 MG 1 tablet Orall y Once a day Active Amoxicillin 500 MG 2 capsules Orally Tw ice a day; Duration: 14 days 10/30/2018 Active Levothyroxine Sodium 125 MCG 1 tablet on an empty stomach in the morning Orally Once a day Active Clarithromycin 500 MG 1 tablet Orally ev missy 12 hrs; Duration: 14 days 10/30/2018 Active Xarelto 20 MG [...] Active Omeprazole 20 TAKE 1 CAPSULE BY [facility] TWICE DAILY; Duration: 90 days Active Immunizations Vaccine Route Administration Date Status Comme nts Influenza Unknown 02/08/2016 Administered Influenza Unknown 02/07/2018 Administered Problems Problem Type SNOMED Code ICD Code Onset Dates Problem Status W/U Status Risk Notes Problem Gastro-esophagea l reflux disease without esophagitis (153698551) Gastro-esophage al reflux disease without esophagitis (K21.9) Active confirmed Problem Dysphagia (65221093) Dysphagia, unspecified type (R13.10) Active confirmed Problem Abnormal UGI series (R93.3) Active confirmed Problem Essential hypertension (99177393) Hypertension, unspecified type (I10) Active confirmed Plan Of Treatment Pending Test Test Name Order Date XR GI SERIES 07/20/2016 Insurance Providers Payer Name Payer Address Payer Phone Subscriber Number Group Number Insured Name Patient Relationship to Insured Coverage Start Date Coverage End Date MEDICARE OF [place] [address] [place] [id number] [phone] [id number] CHARLY SCHWARTZ Self - patient is the insured [employer] ATT[employer] CLAIMS [address] [place] [address] [id number] CHARLY SCHWARTZ Self - patient is the insured Medical (General) History Medical History History ICD Code colonoscopy 03/25/2004 diabetes mellitus osteoporosis Hypothyroidism elevated cholesterol hypertension diverticulosis internal hemorrhoids congestive heart failure urinary incontinence-mild Surgical History Surgery Date(Month/Year) cholecystectomy knee surgery section left hip replacement right knee replacement cardioversion 12/2015
--- OUTSIDE RECORDS SUMMARY | 2025-02-12 22:25 | XMS_ITS | Encounter Summary ---
Author Organization [facility] Address [address] [place] [address] Care Team Providers Care Ios Developer Name Role Phone Torrey Kwok MD Primary Care Provider [phone] Encounter Details Date Type Department Care Team (Late st Contact Info) Description 04/29/2024 Lab Requisition [facility] - Main Lab 299 [facility] [place] [address] Torrey Kwok MD [address] [place] [address] Dysuria Social History Tobacco Use Types Packs/Day [...] Escherichia coli(A) ANDRE 05/01/2024 11:[address] [facility] Urine Urine specimen [...] Final Result [facility] [address] [place] [address], * Frost urine culture tube (04/28/2024 12:15 PM EST) Extra Tube Hold for add-ons. 04/29/2024 11:[address] [facility] Comment:Auto resulted. Urine Urine specimen obtained by clean catch procedure / Unknown 04/28/2024 12:15 PM EST 04/29/2024 9:53 AM EST us Torrey Kwok MD LAB URINE ORDERABLES Final Resul t [facility] [address] [place] [address], * (ABNORMAL) Urinalysis with reflex microscopic and culture (04/28/2024 12:15 PM EST) Specific [place] Urine 1.021 1.003 - 1.030 LAB URINALYSIS [...] Resul t [facility] [address] [place] [address], documented in this encounter Visit Diagnoses Diagnosis Dysuria documented in this encounter Additional Health Concerns Infection Onset Date Last Indicated Resolved Time Respiratory Rule-Out 07/12/2024 07/11/2024 025 11:25 AM EDT documented as of this encounter Care Teams Ios Developer Relationship Specialty Start Date End Date Torrey Kwok MD [address] [facility] [address] [place] [address] PCP - General Geriatric Medicine 04/25/24 documented as of this encounter
--- OUTSIDE RECORDS SUMMARY | 2025-02-12 22:25 | XMS_ITS | Encounter Summary ---
Author Organization [facility] Address [address] [place] [phone] Care Team Providers Care Rod Cup Filler Name Role Phone Torrey Kwok MD Primary Care Provider [phone] Encounter Details Date Type Department Care Team (Late st Contact Info) Description 07/03/2024 Lab Requisition [facility] - Main Lab [address] [facility] [place] [address] Torrey Kwok MD [address] [place], [place] [phone] Chronic kidney disease, stage 3 unspecified (CMS/HCC [...] Hold for add-ons. 07/04/2024 12:01 PM EDT [facility] ([facility] Comment:Auto resulted. Blood Venous blood specimen / Unknown Venipuncture / Unknown 07/04/2024 7:07 AM EDT 07/04/2024 10:40 AM EDT Torrey Kwok MD LAB BLOOD ORDERABLES Final Resul t [facility] ([facility]) [facility] [address] [place] [address], documented in this encounter Visit Diagnoses Diagnosis Chronic kidney disease, stage 3 unspecified (CMS/[facility] V24, [facility] V28) Type 2 diabetes mellitus with hyperglycemia (CMS/[facility] V24, [facility] V28) documented in this encounter Additional Health Concerns Infection Onset Date Last Indicated Resolved Time Respiratory Rule-Out 07/12/2024 07/11/2024 025 11:25 AM EDT documented as of this encounter Care Teams Rod Cup Filler Relationship Specialty Start Date End Date Torrey Kwok MD [address] [place] [address] [address] [place] [address] PCP - General Geriatric Medicine 04/25/24 documented as of this encounter
--- OUTSIDE RECORDS SUMMARY | 2025-02-12 22:25 | XMS_ITS | Encounter Summary ---
Author Organization [facility] Address [address] [place] [address] Care Team Providers Care Film Producer Name Role Phone Torrey Kwok MD Primary Care Provider [phone] Encounter Details Date Type Department Care Team (Late st Contact Info) Description 12/26/2024 Lab Requisition [facility] - Main Lab 299 [facility] [place] [address] Torrey Kwok MD [address] [place], [place] [phone] Essential (primary) hypertension; Heart failure, unspecified (CMS/HCC [...] EDT Essential (primary) hypertension Heart failure, unspecified ([facility] V24, [facility] V28) Type 2 diabetes mellitus with diabetic chronic kidney disease ([facility] V24, [facility] V28) 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 ([facility] V24, [facility] V28) documented in this encounter Results * (ABNORMAL) Complete blood count (12/29/2024 9:16 AM EDT) [facility] WBC 6.9 4.8 - 10.8 K/mcL LAB HEMETOLOGY METHOD 12/29/2024 11:02 AM [facility] RBC 3.50(L) 3.80 - 4.80 M/mcL LAB HEMETOLOGY METHOD 12/29/2024 11:02 AM [facility] Hemoglobin 11.2(L) 11.5 - 16.0 g/dL LAB HEMETOLOGY METHOD 12/29/2024 11:02 AM [facility] Hematocrit 34.3(L) 35.0 - 47.0 % LAB HEMETOLOGY METHOD 12/29/2024 11:02 AM [facility] MCV 96.9 79.0 - 98.0 FL LAB HEMETOLOGY METHOD 12/29/2024 11:02 AM [facility] MCH 31.6 27.0 - 32.0 pcg LAB HEMETOLOGY METHOD 12/29/2024 11:02 AM [facility] MCHC 32.7 32.0 - 37.0 g/dL LAB HEMETOLOGY METHOD 12/29/2024 11:02 AM [facility] RDW 15.4(H) 11.0 - 15.0 % LAB HEMETOLOGY METHOD 12/29/2024 11:02 AM [facility] Platelets 236 130 - 400 K/mcL LAB HEMETOLOGY METHOD 12/29/2024 11:02 AM EDT [facility] MPV 10.5 7.0 - 11.0 FL LAB HEMETOLOGY METHOD 12/29/2024 11:02 AM EDT [facility] NRBC 0.0 <1.0 % LAB HEMETOLOGY METHOD 12/29/2024 11:02 AM [facility] NRBC Absolute 0.00 <0.10 K/mcL LAB HEMETOLOGY METHOD 12/29/2024 11:02 AM T [facility] Blood Venous blood specimen / Unknown Venipuncture / Unknown 12/29/2024 9:16 AM EDT 12/29/2024 10:37 AM EDT us Torrey Kwok MD LAB BLOOD ORDERABLES Final Resul t [facility] [address] [place] [address], * (ABNORMAL) Basic metabolic panel (12/29/2024 9:11 AM EDT) Sodium 135 133 - 145 mmol/L LAB CHEMISTRY METHOD 12/29/2024 11:38 AM [facility] Potassium 4.0 3.5 - 5.5 mmol/L LAB CHEMISTRY METHOD 12/29/2024 11:38 AM [facility] Chloride 98 96 - 110 mmol/L LAB CHEMISTRY METHOD 12/29/2024 11:38 AM [facility] CO2 30 21 - 32 mmol/L LAB CHEMISTRY METHOD 12/29/2024 11:38 AM [facility] Anion Gap 7 3 - 11 LAB CHEMISTRY METHOD 12/29/2024 11:38 AM [facility] Glucose 283(H) 70 - 100 mg/dL LAB CHEMISTRY METHOD 12/29/2024 11:38 AM [facility] BUN 38(H) 5 - 25 mg/dL LAB CHEMISTRY METHOD 12/29/2024 11:38 AM EDT [facility] Creatinine 1.33(H) 0.50 - 1.10 mg/dL LAB CHEMISTRY METHOD 12/29/2024 11:38 AM T [facility] eGFR 39(L) >=60 mL/min/1. 73m2 LAB CHEMISTRY METHOD 12/29/2024 11:38 AM EDT [facility] Comment:Calculation based on the Chronic Kidney Disease Epidemiology Collaboration (CKD-EPI) equation refit without adjustment for race. BUN/Creatinine Ratio 28.6 LAB CHEMISTRY METHOD 12/29/2024 11:38 AM T [facility] Calcium 8.9 8.5 - 10.5 mg/dL LAB CHEMISTRY METHOD 12/29/2024 11:38 AM [facility] Blood Venous blood specimen / Unknown Venipuncture / Unknown 12/29/2024 9:11 AM EDT 12/29/2024 10:42 AM EDT us Torrey Kwok MD LAB BLOOD ORDERABLES Final Resul t [facility] [address] [place] [address], documented in this encounter Visit Diagnoses Diagnosis Essential (primary) hypertension Unspecified essential hypertension Heart failure, unspecified ([facility] V24, [facility] V28) Heart failure, unspecified Type 2 diabetes mellitus with diabetic chronic kidney disease ([facility]/HCC V24, [facility] V28) 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
--- OUTSIDE RECORDS SUMMARY | 2025-02-12 22:25 | XMS_ITS | Encounter Summary ---
Author Organization [facility] Address [address] [place] [phone] Care Team Providers Care Title Department Manager Name Role Phone Torrey Kwok MD Primary Care Provider [phone] Encounter Details Date Type Department Care Team (Late st Contact Info) Description 06/14/2024 Lab Requisition [facility] - Main Lab [address] [facility] [place] [address] Torrey Kwok MD [address] [place], [place] [id number] Type 2 diabetes mellitus with diabetic chronic [...] (CMS/HCC) Essential (primary) hypertension Heart failure, unspecified ([facility]) 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 ([facility]) documented in this encounter Results * (ABNORMAL) Basic metabolic panel (06/16/2024 5:17 AM EDT) Sodium 139 133 - 145 mmol/L LAB CHEMISTRY METHOD 06/16/2024 11:54 AM [facility] Potassium 4.2 3.5 - 5.5 mmol/L LAB CHEMISTRY METHOD 06/16/2024 11:54 AM [facility] Chloride 103 96 - 110 mmol/L LAB CHEMISTRY METHOD 06/16/2024 11:54 AM [facility] CO2 26 21 - 32 mmol/L LAB CHEMISTRY METHOD 06/16/2024 11:54 AM [facility] Anion Gap 10 3 - 11 LAB CHEMISTRY METHOD 06/16/2024 11:54 AM [facility] Glucose 319(H) 70 - 100 mg/dL LAB CHEMISTRY METHOD 06/16/2024 11:54 AM [facility] BUN 26(H) 5 - 25 mg/dL LAB CHEMISTRY METHOD 06/16/2024 11:54 AM [facility] Creatinine 0.97 0.50 - 1.10 mg/dL LAB CHEMISTRY METHOD 06/16/2024 11:54 AM [facility] eGFR 57(L) >=60 mL/min/1. 73m2 LAB CHEMISTRY METHOD 06/16/2024 11:54 AM [facility] Comment:Calculation based on the Chronic Kidney Disease Epidemiology Collaboration (CKD-EPI) equation refit without adjustment for race. BUN/Creatinine Ratio 26.8 LAB CHEMISTRY METHOD 06/16/2024 11:54 AM [facility] Calcium 8.8 8.5 - 10.5 mg/dL LAB CHEMISTRY METHOD 06/16/2024 11:54 AM [facility] Blood Venous blood specimen / Unknown Venipuncture / Unknown 06/16/2024 5:17 AM EDT 06/16/2024 10:33 AM EDT Torrey Kwok MD LAB BLOOD ORDERABLES Final Resul t [facility] [address] [place] [address], * (ABNORMAL) Complete blood count (06/16/2024 5:17 AM EDT) WBC 6.8 4.8 - 10.8 K/mcL LAB HEMETOLOGY METHOD 06/16/2024 11:13 AM EDT [facility] RBC 3.40(L) 3.80 - 4.80 M/mcL LAB HEMETOLOGY METHOD 06/16/2024 11:13 AM [facility] Hemoglobin 10.9(L) 11.5 - 16.0 g/dL LAB HEMETOLOGY METHOD 06/16/2024 11:13 AM [facility] Hematocrit 34.2(L) 35.0 - 47.0 % LAB HEMETOLOGY METHOD 06/16/2024 11:13 AM [facility] MCV 101.2(H) 79.0 - 98.0 FL LAB HEMETOLOGY METHOD 06/16/2024 11:13 AM EDT [facility] MCH 32.2(H) 27.0 - 32.0 pcg LAB HEMETOLOGY METHOD 06/16/2024 11:13 AM [facility] MCHC 31.9(L) 32.0 - 37.0 g/dL LAB HEMETOLOGY METHOD 06/16/2024 11:13 AM [facility] RDW 18.4(H) 11.0 - 15.0 % LAB HEMETOLOGY METHOD 06/16/2024 11:13 AM EDT [facility] Platelets 326 130 - 400 K/mcL LAB HEMETOLOGY METHOD 06/16/2024 11:13 AM EDT [facility] MPV 10.5 7.0 - 11.0 FL LAB HEMETOLOGY METHOD 06/16/2024 11:13 AM EDT [facility] NRBC 0.0 <1.0 % LAB HEMETOLOGY METHOD 06/16/2024 11:13 AM EDT [facility] NRBC Absolute 0.00 <0.10 K/mcL LAB HEMETOLOGY METHOD 06/16/2024 11:13 AM EDT [facility] Blood Venous blood specimen / Unknown Venipuncture / Unknown 06/16/2024 5:17 AM EDT 06/16/2024 10:36 AM EDT Torrey Kwok MD LAB BLOOD ORDERABLES Final Resul t [facility] [address] [place] [address], documented in this encounter Visit Diagnoses Diagnosis 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, [facility] V28) Essential (primary) hypertension Unspecified essential hypertension Heart failure, unspecified ([facility] V24, [facility] V28) Heart failure, unspecified 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
--- OUTSIDE RECORDS SUMMARY | 2025-02-12 22:25 | XMS_ITS | Encounter Summary ---
Author Organization [facility] Address [address] [place] [phone] Care Team Providers Care Sub Plant Manager Name Role Phone Torrey Kwok MD Primary Care Provider [phone] Encounter Details Date Type Department Care Team (Late st Contact Info) Description 01/02/2025 Lab Requisition [facility] - Main Lab [address] [facility] [place] [address] Torrey Kwok MD [address] [place], [place] [phone] Type 2 diabetes mellitus without complications (CMS/HCC [...] V28) documented in this encounter Care Teams Sub Plant Manager Relationship Specialty Start Date End Date Torrey Kwok MD [address] [place], [place] [phone] PCP - General Geriatric Medicine 04/25/24 documented as of this encounter
--- OUTSIDE RECORDS SUMMARY | 2025-02-12 22:25 | XMS_ITS | Encounter Summary ---
Author Organization [facility] Address [address] [place] [phone] Care Team Providers Care Keyboarding Clerk Name Role Phone Torrey Kwok MD Primary Care Provider [phone] Encounter Details Date Type Department Care Team (Late st Contact Info) Description 07/05/[address] 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 ([facility]) documented in this encounter Results * (ABNORMAL) Basic metabolic panel (07/07/2024 5:35 AM EDT) Sodium 142 133 - 145 mmol/L LAB CHEMISTRY METHOD 07/07/2024 12:00 PM [facility] Potassium 4.0 3.5 - 5.5 mmol/L LAB CHEMISTRY METHOD 07/07/2024 12:00 PM [facility] Chloride 107 96 - 110 mmol/L LAB CHEMISTRY METHOD 07/07/2024 12:00 PM [facility] CO2 27 21 - 32 mmol/L LAB CHEMISTRY METHOD 07/07/2024 12:00 PM [facility] Anion Gap 8 3 - 11 LAB CHEMISTRY METHOD 07/07/2024 12:00 PM [facility] Glucose 86 70 - 100 mg/dL LAB CHEMISTRY METHOD 07/07/2024 12:00 PM [facility] BUN 37(H) 5 - 25 mg/dL LAB CHEMISTRY METHOD 07/07/2024 12:00 PM [facility] Creatinine 1.13(H) 0.50 - 1.10 mg/dL LAB CHEMISTRY METHOD 07/07/2024 12:00 PM [facility] eGFR 47(L) >=60 mL/min/1. 73m2 LAB CHEMISTRY METHOD 07/07/2024 12:00 PM [facility] Comment:Calculation based on the Chronic Kidney Disease Epidemiology Collaboration (CKD-EPI) equation refit without adjustment for race. BUN/Creatinine Ratio 32.7 LAB CHEMISTRY METHOD 07/07/2024 12:00 PM [facility] Calcium 8.8 8.5 - 10.5 mg/dL LAB CHEMISTRY METHOD 07/07/2024 12:00 PM [facility] Blood Venous blood specimen / Unknown Venipuncture / Unknown 07/07/2024 5:35 AM EDT 07/07/2024 10:37 AM EDT Torrey Kwok MD LAB BLOOD ORDERABLES Final Resul t [facility] [address] [place] [address], * (ABNORMAL) Complete blood count (07/07/2024 5:35 AM EDT) WBC 6.3 4.8 - 10.8 K/mcL LAB HEMETOLOGY METHOD 07/07/2024 11:43 AM EDT [facility] RBC 2.90(L) 3.80 - 4.80 M/mcL LAB HEMETOLOGY METHOD 07/07/2024 11:43 AM EDT [facility] Hemoglobin 9.5(L) 11.5 - 16.0 g/dL LAB HEMETOLOGY METHOD 07/07/2024 11:43 AM EDT [facility] Hematocrit 30.2(L) 35.0 - 47.0 % LAB HEMETOLOGY METHOD 07/07/2024 11:43 AM [facility] MCV 103.4(H) 79.0 - 98.0 FL LAB HEMETOLOGY METHOD 07/07/2024 11:43 AM EDT [facility] MCH 32.5(H) 27.0 - 32.0 pcg LAB HEMETOLOGY METHOD 07/07/2024 11:43 AM EDT [facility] MCHC 31.5(L) 32.0 - 37.0 g/dL LAB HEMETOLOGY METHOD 07/07/2024 11:43 AM [facility] RDW 18.3(H) 11.0 - [...] t [facility] [address] [place] [address], documented in this encounter Visit Diagnoses Diagnosis 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, [facility] V28) Essential (primary) hypertension Unspecified essential hypertension Heart failure, unspecified ([facility] V24, [facility] V28) Heart failure, unspecified 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
--- OUTSIDE RECORDS SUMMARY | 2025-02-12 22:25 | XMS_ITS | Encounter Summary ---
Author Organization [facility] Address [address] [place] [phone] Phone Care Team Providers Care Meal Grinder Tender Name Role Phone Monique White MD Primary Care Provider [phone] Sohail Penaloza MD Unavailable [phone] Alfred Guevara DPM, Erik Unavailable [phone] Reason for Visit * Reason Onset Date Comments Forms & Paperwork 02/10/2025 Encounter Details Date Type Department Care Team (Late st Contact Info) Description 02/10/2025 Telephone [facility] [address] [place] [address] [phone] Ann Carrillo MD [address] [place] [address] [phone] [email or web address] Forms & Paperwork (/) Social History Tobacco Use Types Packs/Day Years [...] as of this encounter Progress Notes * Trista Garcia - 02/10/2025 9:45 AM EST Electronically faxed over last o/v notes to [facility] regarding pt's marlena sensors. documented in this encounter Plan of Treatment Upcoming Encounters Date Type Department Care Team (Late st Contact Info) Description 03/25/2025 10:20 AM EST Office Visit [facility] [address] [place] [address] Ann Carrillo MD [address] [place] [phone] 06/18/2025 11:00 AM EDT Office Visit [facility] [address] [place] [address] Ann Carrillo MD [address] [place] [phone] 09/15/2025 11:00 AM EDT Office Visit [facility] [address] [place] [address] Felicita Morgan PA-C [address] [place] [phone] documented as of this encounter Visit Diagnoses Not on filedocumented in this encounter Care Teams Meal Grinder Tender Relationship Specialty Start Date End Date Monique White MD [address] [place] [address] Drive [address] [place] [phone] PCP - General Internal Medicine 08/30/19 Sohail Penaloza MD [address] [place] [phone] Nephrology 07/14/22 Arturo Simon DPM [address] [place] [phone] Podiatry 07/14/22 documented as of this encounter Additional Source Comments The information contained in this document represents components of the legal health record. It is not the complete legal health record.[facility]
--- OUTSIDE RECORDS SUMMARY | 2025-02-12 22:25 | XMS_ITS | Encounter Summary ---
Author Organization [facility] Address [address] [place] [address] Care Team Providers Care Slot Machine Key Person Name Role Phone Torrey Kwok MD Primary Care Provider [phone] Encounter Details Date Type Department Care Team (Late st Contact Info) Description 01/30/2025 Lab Requisition [facility] - Main Lab [address] [facility] [employer] [place] [address] Torrey Kwok MD [address] [place], [place] [id number] Fever, unspecified Social History Tobacco Use Types Packs/Day [...] Fever, unspecified FROST URINE CULTURE TUBE Routine 01/30/2025 7:00 AM EDT Fever, unspecified URINALYSIS WITH REFLEX MICROSCOPIC AND CULTURE Routine 01/30/2025 7:00 AM EDT Fever, unspecified CULTURE URINE Routine 01/30/2025 7:00 AM EDT Fever, unspecified documented in this encounter Results * (ABNORMAL) Culture urine (01/30/2025 7:00 AM EDT) Culture, Urine >=100,000 CFU/mL Escherichia coli(A) ANDRE 02/01/2025 8:03 AM EDT [facility] Urine Urine specimen obtained by clean catch procedure / Unknown Non-blood Collection / Unknown 01/30/2025 7:00 AM EDT 01/30/2025 9:54 AM EDT Narrative [facility] - 02/01/2025 8:03 AM EDT [...] MICROBIOLOGY - GENERAL ORDER GENET Final Result [facility] [address] [place] [address], [place] [phone] * (ABNORMAL) Urinalysis with reflex microscopic and culture (01/30/2025 7:00 AM EDT) Specific [place] Urine 1.019 1.003 - 1.030 LAB URINALYSIS - AUTOMATED METHOD 01/30/2025 9:54 AM EDT [facility] pH, Urine 7.5 5.0 - 8.0 pH LAB URINALYSIS - AUTOMATED METHOD 01/30/2025 9:54 AM [facility] Leukocytes, Urine Moderate(A) Negative LAB URINALYSIS - AUTOMATED METHOD 01/30/2025 9:54 AM [facility] Nitrite, Urine Positive(A) Negative LAB URINALYSIS - AUTOMATED METHOD 01/30/2025 9:54 AM [facility] Protein, Urine 30(A) <=Trace mg/dL LAB URINALYSIS - AUTOMATED METHOD 01/30/2025 9:54 AM [facility] Glucose, Urine >=1000(A) Negative mg/dL LAB URINALYSIS - AUTOMATED METHOD 01/30/2025 9:54 AM [facility] Ketones, Urine Trace(A) Negative mg/dL LAB URINALYSIS - AUTOMATED METHOD 01/30/2025 9:54 AM [facility] Urobilinogen , Urine 0.2 0.2 - 1.0 mg/dL LAB URINALYSIS - AUTOMATED METHOD 01/30/2025 9:54 AM [facility] Bilirubin, Urine Negative Negative LAB URINALYSIS - AUTOMATED METHOD 01/30/2025 9:54 AM [facility] Blood, Urine Moderate(A) Negative LAB URINALYSIS - AUTOMATED METHOD 01/30/2025 9:54 AM [facility] RBC, Urine 58.4(H) 0 - 4 /HPF LAB URINALYSIS - AUTOMATED METHOD 01/30/2025 9:54 AM [facility] WBC, Urine 547.4(H) 0 - 4 /HPF LAB URINALYSIS - AUTOMATED METHOD 01/30/2025 9:54 AM [facility] Squamous Epithelial, Urine 8 0 - 60 /LPF LAB URINALYSIS - AUTOMATED METHOD 01/30/2025 9:54 AM [facility] Bacteria, Urine Many(A) Negative /HPF LAB URINALYSIS - AUTOMATED METHOD 01/30/2025 9:54 AM EDT [facility] Hyaline Casts, Urine 0.4 0 - 3 /LPF LAB URINALYSIS - AUTOMATED METHOD 01/30/2025 9:54 AM EDT [facility] Urine Urine specimen obtained by clean catch procedure / Unknown Non-blood Collection / Unknown 01/30/2025 7:00 AM EDT 01/30/2025 9:09 AM EDT us Torrey Kwok MD LAB URINE ORDERABLES Final Resul t Performing Organization Address City/[facility]/ZIP Co de Phone Number [facility] [address] [place] [address], [place] [phone] * Frost urine culture tube (01/30/2025 7:00 AM EDT) Extra Tube Hold for add-ons. 01/30/2025 11:01 AM EDT [facility] Comment:Auto resulted. Urine Urine specimen obtained by clean catch procedure / Unknown Non-blood Collection / Unknown 01/30/2025 7:00 AM EDT 01/30/2025 9:09 AM EDT us Torery Kwok MD LAB URINE ORDERABLES Final Resul t Performing Organization Address City/[facility]/ZIP Co de Phone Number [facility] [address] [place] [address], [place] [phone] documented in this encounter Visit Diagnoses Diagnosis Fever, unspecified documented in this encounter Care Teams Slot Machine Key Person Relationship Specialty Start Date End Date Torrey Kwok MD [address] [place] [address] [address] [place] [address] PCP - General Geriatric Medicine 04/25/24 documented as of this encounter
--- OUTSIDE RECORDS SUMMARY | 2025-02-12 22:25 | XMS_ITS | Encounter Summary ---
Author Organization [facility] Address [address] [place] [address] Care Team Providers Care Crm Marketing Analyst Name Role Phone Torrey Kwok MD Primary Care Provider [phone] Encounter Details Date Type Department Care Team (Late st Contact Info) Description 01/30/2025 Lab Requisition [facility] - Main Lab [address] [facility] [place] [address] Social History Tobacco Use Types [...] on filedocumented in this encounter Care Teams Crm Marketing Analyst Relationship Specialty Start Date End Date Torrey Kwok MD [address] [place] [address] PCP - General Geriatric Medicine 04/25/24 documented as of this encounter
--- OUTSIDE RECORDS SUMMARY | 2025-02-12 22:25 | XMS_ITS | Encounter Summary ---
Author Organization [facility] Address [address] [place] [address] Care Team Providers Care Automotive Service Director Name Role Phone Torrey Kwok MD Primary Care Provider Encounter Details Date Type Department Care Team (Late st Contact Info) Description 01/03/2025 Lab Requisition [facility] - Main Lab 299 [facility] [place] [address] Torrey Kwok MD [address] [place], [place] [id number] Type 2 diabetes mellitus with diabetic chronic [...] V28) documented in this encounter Care Teams Automotive Service Director Relationship Specialty Start Date End Date Torrey Kwok MD [address] [place] [address] PCP - General Geriatric Medicine 04/25/24 documented as of this encounter
--- OUTSIDE RECORDS SUMMARY | 2025-02-12 22:25 | XMS_ITS | Encounter Summary ---
Author Organization [facility] Address [address] [place] [address] Care Team Providers Care Head Athletic Trainer Name Role Phone Torrey Kwok MD Primary Care Provider [phone] Encounter Details Date Type Department Care Team (Late st Contact Info) Description 06/28/2024 Lab Requisition [facility] - Main Lab 299 [facility] [place] [address] Torrey Kwok MD [address] [place], [place] [id number] Type 2 diabetes mellitus with diabetic chronic [...] (CMS/HCC) Essential (primary) hypertension Heart failure, unspecified ([facility]) 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 ([facility]) documented in this encounter Results * (ABNORMAL) Basic metabolic panel (06/30/2024 6:10 AM EDT) Sodium 142 133 - 145 mmol/L LAB CHEMISTRY METHOD 06/30/2024 12:00 PM [facility] Potassium 4.1 3.5 - 5.5 mmol/L LAB CHEMISTRY METHOD 06/30/2024 12:00 PM [facility] Chloride 106 96 - 110 mmol/L LAB CHEMISTRY METHOD 06/30/2024 12:00 PM [facility] CO2 28 21 - 32 mmol/L LAB CHEMISTRY METHOD 06/30/2024 12:00 PM [facility] Anion Gap 8 3 - 11 LAB CHEMISTRY METHOD 06/30/2024 12:00 PM [facility] Glucose 159(H) 70 - 100 mg/dL LAB CHEMISTRY METHOD 06/30/2024 12:00 PM [facility] BUN 47(H) 5 - 25 mg/dL LAB CHEMISTRY METHOD 06/30/2024 12:00 PM [facility] Creatinine 1.11(H) 0.50 - 1.10 mg/dL LAB CHEMISTRY METHOD 06/30/2024 12:00 PM [facility] eGFR 48(L) >=60 mL/min/1. 73m2 LAB CHEMISTRY METHOD 06/30/2024 12:00 PM [facility] Comment:Calculation based on the Chronic Kidney Disease Epidemiology Collaboration (CKD-EPI) equation refit without adjustment for race. BUN/Creatinine Ratio 42.3 LAB CHEMISTRY METHOD 06/30/2024 12:00 PM [facility] Calcium 8.8 8.5 - 10.5 mg/dL LAB CHEMISTRY METHOD 06/30/2024 12:00 PM [facility] Blood Venous blood specimen / Unknown Venipuncture / Unknown 06/30/2024 6:10 AM EDT 06/30/2024 11:01 AM EDT Torrey Kwok MD LAB BLOOD ORDERABLES Final Resul t [facility] [address] [place] [address], * (ABNORMAL) Complete blood count (06/30/2024 6:10 AM EDT) WBC 6.0 4.8 - 10.8 K/mcL LAB HEMETOLOGY METHOD 06/30/2024 11:46 AM EDT [facility] RBC 2.90(L) 3.80 - 4.80 M/mcL LAB HEMETOLOGY METHOD 06/30/2024 11:46 AM EDT [facility] Hemoglobin 9.5(L) 11.5 - 16.0 g/dL LAB HEMETOLOGY METHOD 06/30/2024 11:46 AM EDT [facility] Hematocrit 29.9(L) 35.0 - 47.0 % LAB HEMETOLOGY METHOD 06/30/2024 11:46 AM T [facility] MCV 101.7(H) 79.0 - 98.0 FL LAB HEMETOLOGY METHOD 06/30/2024 11:46 AM EDT [facility] MCH 32.3(H) 27.0 - 32.0 pcg LAB HEMETOLOGY METHOD 06/30/2024 11:46 AM EDT [facility] MCHC 31.8(L) 32.0 - 37.0 g/dL LAB HEMETOLOGY METHOD 06/30/2024 11:46 AM EDT [facility] RDW 18.5(H) 11.0 - 15.0 % LAB HEMETOLOGY METHOD 06/30/2024 11:46 AM EDT [facility] Platelets 309 130 - [...] t [facility] [address] [place] [address], documented in this encounter Visit Diagnoses Diagnosis 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, [facility] V28) Essential (primary) hypertension Unspecified essential hypertension Heart failure, unspecified ([facility]/HCC V24, [facility] V28) Heart failure, unspecified 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
--- OUTSIDE RECORDS SUMMARY | 2025-02-12 22:25 | XMS_ITS | Patient Health Record ---
[facility] Address [address] [place] [address] Care Team Providers Care Framing Carpenter Name Role Phone Monique White Primary Care Provider Arturo Brown Unavailable [phone] Allergies Allergen (clinical drug ingredient) Drug/Non Drug Allergy documented on EMR Reaction Allergy Type Onset Date Status codeine Codeine rapid heart beat Drug Allergy Active Results Component Value Reference Range Notes HEMOGLOBIN A1C (GLYCOHEMOGLO BIN) Reviewed date:08/15/2024 10:34:45 AM Interpretation: Performing Lab: Notes/Report: HEMOGLOBIN A1C % (HH) 9.0 Reason For Referral No Information Medications Medication SIG (Take, Route, Frequency, Duration) Notes Start Date End Date Status Cytomel Active Losartan Potassium N ot-Taking Furosemide Active Crestor 2.5 MG 1 tablet Orally Once a day; Duration: 30 day(s) Not-Taking Metoprolol Tartrate 100 MG 1 tablet Oral ly Once a day; Duration: 30 day(s) Active Simvastatin Active Xarelto Active Amiodarone HCl 200 MG 1 tablet Orally On ce a day Active Extra Depth Orthopedic Shoes (1 Pair) with Customized Heat Molded Multidensity Innersoles (3 Pair) as directed Dx: 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), Hammertoe Foot Deformity (M20.41,M20.42), Preulcerative Skin Lesion(s) (L85.1) Active HumaLOG Not-Taking Toujeo Max SoloStar 300 UNIT/ML as [...] Problem Acquired hammer toe of right foot (1885885216865486 ) Other hammer toe(s) (acquired), right foot (M20.41) Active confirmed Problem Acquired hammer toe of left foot ([id number] ) Other hammer toe(s) (acquired), left foot (M20.42) Active confirmed Problem Polyneuropathy due to diabetes mellitus type I (194143521) Type 1 diabetes mellitus with diabetic polyneuropathy (E10.42) Active confirmed Vital Signs Blood pressure diastolic 84 mm Hg 08/15/2024 Height 4 ft 10 in in 08/15/2024 Blood pressure systolic 126 mm Hg 08/15/2024 Weight 138 lbs 08/15/2024 BMI 28.84 kg/m2 08/15/2024 Procedures Procedure Date Ordered Date Performed Result Body Sit e 57634-QKWPMSS NAIL, 6 OR MORE 08/15/2024 N/A 75004-LRRE SKIN LESIONS, 2 TO 4 08/15/2024 N/A Encounters Encounter [facility] Date [facility] [address] [facility]/15/2024 Arturo Simon Type 1 diabetes mellitus with diabetic polyneuropathy E10.42 and Onychomycosis B35.[address] [address] 05/05/2024 Arturo Simon [facility] [address] [place] [address] 11/27/2024 Arturo Simon Assessments Encounter Date Diagnosis (ICD Code) Assessment Notes Treatment Notes Treatment Clinical Notes Section Notes 08/15/2024 Type 1 diabetes mellitus with diabetic polyneuropathy (ICD-10 - E10.42) 08/15/2024 Onychomycosis (ICD-10 - B35.1) Plan Of Treatment Pending Test Test Name Order Date Hemoglobin A1c 06/23/2014 Hemoglobin A1c 01/05/2015 Glucose Fasting 06/23/2014 X ray : Foot, right 3V 06/28/2023 58516-QQSJMVL NAIL, 6 OR MORE 05/22/2023 58034-YSYFTNK NAIL, 6 OR MORE 12/12/2022 64607-UQTZVCG NAIL, 6 OR MORE 03/06/2023 18080-HAMSPWM NAIL, 6 OR MORE 01/10/2022 83066-GGKDPEE NAIL, 6 OR MORE 04/18/2022 14099-ZMOFPQF NAIL, 6 OR MORE 07/11/2022 39940-SUZZQUQ NAIL, 6 OR MORE 10/03/2022 93471-GIKGFZA NAIL, 6 OR MORE 09/21/2023 96857-ERCLZUN NAIL, 6 OR MORE 12/04/2023 69126-NWAACIW NAIL, 6 OR MORE 02/05/2024 29958-RUOFHRG NAIL, 6 OR MORE 08/15/2024 41111-YXHIIGO NAIL, 6 OR MORE 07/10/2017 88582-HSDFZWN NAIL, 6 OR MORE 10/09/2017 61531-DBYYRDA NAIL, 6 OR MORE 01/08/2018 34096-MKQIIQW NAIL, 6 OR MORE 04/30/2018 99339-WHPPPJW NAIL, 6 OR MORE 07/30/2018 57249-XVSHWJB NAIL, 6 OR MORE 10/29/2018 66526-LMSOXTM NAIL, 6 OR MORE 02/04/2019 63390-YVSZHJK NAIL, 6 OR MORE 05/13/2019 17496-EYBUSOF NAIL, 6 OR MORE 08/12/2019 55083-UDCEWCI NAIL, 6 OR MORE 11/11/2019 88106-DPEKPGK NAIL, 6 OR MORE 02/17/2020 01274-OSMXKGT NAIL, 6 OR MORE 05/25/2020 02471-NTCDEUW NAIL, 6 OR MORE 08/24/2020 59994-FYFMVNP NAIL, 6 OR MORE 11/23/2020 63255-FFSSAJX NAIL, 6 OR MORE 02/22/2021 54597-ZPKPZZP NAIL, 6 OR MORE 05/24/2021 88300-DYBBQXG NAIL, 6 OR MORE 10/11/2021 59090-RKYPJQD NAIL, 6 OR MORE 10/06/2014 18201-ZMVYHXI NAIL, 6 OR MORE 06/10/2013 18202-CDUVNGN NAIL, 6 OR MORE 03/17/2014 01048-ZHGXHXR NAIL, 6 OR MORE 06/23/2014 32443-NNTEFFF NAIL, 6 OR MORE 01/05/2015 61806-BXOUZYE NAIL, 6 OR MORE 04/20/2015 28726-VOPYLVL NAIL, 6 OR MORE 07/20/2015 45806-FLXIVMR NAIL, 6 OR MORE 10/26/2015 05573-QUFUZRR NAIL, 6 OR MORE 01/25/2016 49300-JZVPDPN NAIL, 6 OR MORE 05/23/2016 61230-PSYAYAO NAIL, 6 OR MORE 08/25/2016 48054-TJXZOYT NAIL, 6 OR MORE 12/05/2016 74648-PPCAXQZ NAIL, 6 OR MORE 03/06/2017 43938-QUVCCUJ NAIL, 6 OR MORE 12/27/2010 25248-MPBRSRY NAIL, 6 OR MORE 03/21/2011 05076-OKQKWQJ NAIL, 6 OR MORE 06/13/2011 45336-IZFTNJW NAIL, 6 OR MORE 09/12/2011 76247-QMLPMBT NAIL, 6 OR MORE 12/19/2011 50925-JXYDYWB NAIL, 6 OR MORE 03/05/2012 75869-ZSRJLCD NAIL, 6 OR MORE 05/31/2012 54459-CHQMDXL NAIL, 6 OR MORE 08/27/2012 43491-TWLBAKC NAIL, 6 OR MORE 12/10/2012 75039-NNOGHSL NAIL, 6 OR MORE 03/11/2013 61604-ZISALJG NAIL, 6 OR MORE 09/16/2013 09570-MQZKXFP NAIL, 6 OR MORE 01/06/2014 03603-Mygdsvsu Plate 01/06/2014 10699-Xbrmtfhy Plate 09/16/2013 38442-Hdnxwokm Plate 05/31/2012 98742-Fhqggvdj Plate 06/13/2011 35430-Spjnotsd Plate 03/21/2011 25813-Ttpezgtp Plate 12/05/2016 43982-Ndzpmcol Plate 07/10/2017 59396-Yoryvbyr Plate 07/20/2015 29059-Yuwzodrg Plate 01/05/2015 78899-Crlfvcjc Plate 08/27/2012 33616-Khoahznc Plate 03/17/2014 87417-Espobxmt Plate 10/06/2014 85071-Mbzysmip Plate 09/21/2023 17556-Sxwnivgs Plate Each Additional 36747-Lxafcoed Plate Each Additional 01/2014 36980-Uxgctofx Plate Each Additional 69580 I&D ABSCESS- SIMPLE,SINGLE 012 62413 I&D ABSCESS- SIMPLE,SINGLE 011 21646 I&D ABSCESS- SIMPLE,SINGLE 021 72266-KOPM SKIN LESIONS, 2 TO 4 09/21/19 24 05059-FSZB SKIN LESIONS, 2 TO 4 02/05/20 24 05996-OPVH SKIN LESIONS, 2 TO 4 12/04/19 24 38133-AWOM SKIN LESIONS, 2 TO 4 08/16/19 25 20335-UYFV SKIN LESIONS, 2 TO 4 10/04/19 23 26208-JZVS SKIN LESIONS, 2 TO 4 07/12/19 23 62088-UEWI SKIN LESIONS, 2 TO 4 04/18/19 23 56343-XYDW SKIN LESIONS, 2 TO 4 01/11/20 22 57112-RBOR SKIN LESIONS, 2 TO 4 03/06/20 23 91515-CPRD SKIN LESIONS, 2 TO 4 12/13/19 23 75002-ZEIO SKIN LESIONS, 2 TO 4 05/22/19 24 93302-QSEI SKIN LESIONS, 2 TO 4 10/12/19 94908-WNNY SKIN LESIONS, 2 TO 4 05/24/19 22 14051-TGGQ SKIN LESIONS, 2 TO 4 02/23/20 37390-LLRF SKIN LESIONS, 2 TO 4 11/24/19 62107-TUFU SKIN LESIONS, 2 TO 4 08/25/19 21 67649-LAQZ SKIN LESIONS, 2 TO 4 05/25/19 21 31186-GRYZ SKIN LESIONS, 2 TO 4 02/17/20 20 13814-EZWG SKIN LESIONS, 2 TO 4 11/11/19 53469-TTKX SKIN LESIONS, 2 TO 4 05/05/20 20 55742-JQES SKIN LESIONS, 2 TO 4 05/13/19 20 71013-UDGJ SKIN LESIONS, 2 TO 4 02/05/20 19 66710-WYMU SKIN LESIONS, 2 TO 4 10/30/19 19 98638-YOSJ SKIN LESIONS, 2 TO 4 07/31/19 19 43464-OQUX SKIN LESIONS, 2 TO 4 04/30/19 19 80583-XKKC SKIN LESIONS, 2 TO 4 01/09/20 18 75709-ONFR SKIN LESIONS, 2 TO 4 10/10/19 18 87554-RQOM SKIN LESIONS, 2 TO 4 05/31/19 13 58959-WWSU SKIN LESIONS, 2 TO 4 03/05/20 12 36212-CBIL SKIN LESIONS, 2 TO 4 12/19/19 12 45049-CRMI SKIN LESIONS, 2 TO 4 08/28/19 13 57946-EWDD SKIN LESIONS, 2 TO 4 03/11/20 13 52680-CLKZ SKIN LESIONS, 2 TO 4 12/11/19 13 37892-QVNI SKIN LESIONS, 2 TO 4 01/07/20 14 84263-DBGG SKIN LESIONS, 2 TO 4 09/17/19 14 39231-RTHD SKIN LESIONS, 2 TO 4 04/20/19 16 21889-AZHG SKIN LESIONS, 2 TO 4 01/06/20 15 86464-AUAX SKIN LESIONS, 2 TO 4 06/24/19 15 13312-OEMJ SKIN LESIONS, 2 TO 4 10/07/19 15 61703-FWXK SKIN LESIONS, 2 TO 4 03/17/20 14 22328-MOEW SKIN LESIONS, 2 TO 4 06/11/19 14 63507-RHGH SKIN LESIONS, 2 TO 4 07/20/19 16 79867-KPLB SKIN LESIONS, 2 TO 4 10/26/19 16 56378-MDRX SKIN LESIONS, 2 TO 4 05/23/19 17 64383-VWLG SKIN LESIONS, 2 TO 4 08/26/19 17 69758-UBLC SKIN LESIONS, 2 TO 4 01/25/20 16 74211-GBWN SKIN LESIONS, 2 TO 4 07/11/19 18 18993-POXA SKIN LESIONS, 2 TO 4 03/06/20 17 68164-NXES SKIN LESIONS, 2 TO 4 12/06/19 17 86027-MDHS SKIN LESION 09/12/2011 06321-INOC SKIN LESION 03/21/2011 04545-OSJR SKIN LESION 06/13/2011 11918-Xkakrhtph, Toes 06/28/2023 Next Appt Details Provider Name:Arturo Simon , 03/10/2025 11:30:00 AM, [address] [facility], [place], [address], Insurance Providers Payer Name Payer Address Payer Phone Subscriber Number Group Number Insured Name Patient Relationship to Insured Coverage Start Date Coverage End Date Medicare National Govt [facility] [address] [place] [address] [id number] Gerri Sanchez Self - patient is the insured 2 [employer] Blue [employer] [address] [place] [address] [id number] Gerri Sanchez Self - patient is the insured Medical (General) History Medical History History ICD Code Cholesterol transfusions joint implants/screws osteoporosis measles high blood pressure diverticulitis chicken pox cataracts back, hip, knee pain Arthritis sciatica endoscopy 10/2018 type I diabetes Urinary tract infection Surgical History Surgery Date(Month/Year) left hip replacement 2007 right knee replacement 2010 MRI R knee 05/2020 cardioversion 05/2021 fractured Right hip, karen put in femur Hospitalization History Reason Date(Month/Year) [facility]- UTI 11[facility]16[facility]23 [facility]: [facility]fib 12/2015 [facility] / for medication 6 [facility] cath put in 04/2015
--- OUTSIDE RECORDS SUMMARY | 2025-02-12 22:26 | XMS_ITS | Encounter Summary ---
Author Organization [facility] Address [address] [place] [address] Care Team Providers Care Ski Binding Fitter And Repairer Name Role Phone Torrey Kwok MD Primary Care Provider [phone] Encounter Details Date Type Department Care Team (Late st Contact Info) Description 05/16/2024 Lab Requisition [facility] - Main Lab [address] [facility] [place] [address] Torrey Kwok MD [address] [place], [place] [id number] Heart failure, unspecified (CMS/HCC V24, CMS/HCC V28); [...] [facility] [address] [place] [address], * (ABNORMAL) Complete blood count (05/19/2024 7:33 AM EST) [facility] WBC 5.4 4.8 - 10.8 K/mcL LAB HEMETOLOGY METHOD 05/19/2024 1:26 PM EST [facility] RBC 3.50(L) 3.80 - 4.80 M/mcL LAB HEMETOLOGY METHOD 05/19/2024 1:26 PM [facility] Hemoglobin 11.1(L) 11.5 - 16.0 g/dL LAB HEMETOLOGY METHOD 05/19/2024 1:26 PM [facility] Hematocrit 35.7 35.0 - 47.0 % LAB HEMETOLOGY METHOD 05/19/2024 1:26 PM EST [facility] MCV 103.5(H) 79.0 - 98.0 FL LAB HEMETOLOGY METHOD 05/19/2024 1:26 PM [facility] MCH 32.2(H) 27.0 - 32.0 pcg LAB HEMETOLOGY METHOD 05/19/2024 1:26 PM [facility] MCHC 31.1(L) 32.0 - 37.0 g/dL LAB HEMETOLOGY METHOD 05/19/2024 1:26 PM EST [facility] RDW 20.0(H) 11.0 - [...] LAB HEMETOLOGY METHOD 05/19/2024 1:26 PM EST [facility] NRBC Absolute 0.00 <0.10 K/mcL LAB HEMETOLOGY METHOD 05/19/2024 1:26 PM EST [facility] Blood Venous blood specimen / Unknown Venipuncture / Unknown 05/19/2024 7:33 AM EST 05/19/2024 12:17 PM EST us Torrey Kwok MD LAB BLOOD ORDERABLES Final Resul t [facility] [address] [place] [address], documented in this encounter Visit Diagnoses Diagnosis [...] as of this encounter Care Teams Ski Binding Fitter And Repairer Relationship Specialty Start Date End Date Torrey Kwok MD [address] [place] [address] [address] [place] [address] PCP - General Geriatric Medicine 04/25/24 documented as of this encounter
--- OUTSIDE RECORDS SUMMARY | 2025-02-12 22:26 | XMS_ITS | Encounter Summary ---
Author Organization [facility] Address [id number] [place] [phone] Care Team Providers Care Engraving Press Operator Name Role Phone Torrey Kwok MD Primary Care Provider Encounter Details Date Type Department Care Team (Late st Contact Info) Description 01/30/2025 Lab Requisition [facility] - Main Lab 299 [facility] [place] [address] Torrey Kwok MD [address] [place], [place] [id number] Type 2 diabetes mellitus with diabetic chronic [...] Associated Diagnosis Comments COMPLETE BLOOD COUNT Routine 02/02/2025 4:47 AM EDT 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, CMS/HCC V28) Essential (primary) hypertension Heart failure, unspecified (CMS/HCC V24, CMS/HCC V28) 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 V24, CMS/HCC V28) documented in this encounter Results * (ABNORMAL) Complete blood count (02/02/2025 4:47 AM EDT) [facility] WBC 9.0 4.8 - 10.8 K/mcL LAB HEMETOLOGY METHOD 02/02/2025 10:02 AM [facility] LAB RBC 4.20 3.80 - 4.80 M/mcL LAB HEMETOLOGY METHOD 02/02/2025 10:02 AM [facility] LAB Hemoglobin 13.0 11.5 - 16.0 g/dL LAB HEMETOLOGY METHOD 02/02/2025 10:02 AM [facility] LAB Hematocrit 42.2 35.0 - 47.0 % LAB HEMETOLOGY METHOD 02/02/2025 10:02 AM [facility] LAB MCV 100.2(H) 79.0 - 98.0 FL LAB HEMETOLOGY METHOD 02/02/2025 10:02 AM [facility] LAB MCH 30.9 27.0 - 32.0 pcg LAB HEMETOLOGY METHOD 02/02/2025 10:02 AM [facility] LAB MCHC 30.8(L) 32.0 - 37.0 g/dL LAB HEMETOLOGY METHOD 02/02/2025 10:02 AM [facility] RDW 16.9(H) 11.0 - 15.0 % LAB HEMETOLOGY METHOD 02/02/2025 10:02 AM [facility] Platelets 269 130 - 400 K/mcL LAB HEMETOLOGY METHOD 02/02/2025 10:02 AM [facility] MPV 11.2(H) 7.0 - 11.0 FL LAB HEMETOLOGY METHOD 02/02/2025 10:02 AM [facility] NRBC 0.0 <1.0 % LAB HEMETOLOGY METHOD 02/02/2025 10:02 AM [facility] NRBC Absolute 0.00 <0.10 K/mcL LAB HEMETOLOGY METHOD 02/02/2025 10:02 AM EDT [facility] Blood Venous blood specimen / Unknown Venipuncture / Unknown 02/02/2025 4:47 AM EDT 02/02/2025 9:30 AM EDT Torrey Kwok MD LAB BLOOD ORDERABLES Final Resul t [facility] [address] [place] [address], documented in this encounter Visit Diagnoses Diagnosis Type 2 diabetes mellitus with diabetic chronic kidney disease (CMS/[facility] V24, [facility] V28) Essential (primary) hypertension Unspecified essential hypertension Heart failure, unspecified ([facility] V24, CMS/[facility] V28) Heart failure, unspecified 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
--- OUTSIDE RECORDS SUMMARY | 2025-02-12 22:26 | XMS_ITS | Encounter Summary ---
Author Organization [facility] Address [id number] [place] [phone] Care Team Providers Care Fiberglass Pipe Covering Supervisor Name Role Phone Torrey Kwok MD Primary Care Provider [phone] Encounter Details Date Type Department Care Team (Late st Contact Info) Description 10/09/2024 Lab Requisition [facility] - Main Lab 299 [facility] [place] [address] Torrey Kowk MD [address] [place], [place] [id number] Type 2 diabetes mellitus with diabetic chronic [...] diabetes mellitus with diabetic chronic kidney disease ([facility] V24, [facility] V28) Essential (primary) hypertension Heart failure, unspecified ([facility] V24, [facility] V28) 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 ([facility] V24, [facility] V28) documented in this encounter Results * (ABNORMAL) Basic metabolic panel (10/13/2024 4:57 AM EDT) Sodium 137 133 - 145 mmol/L LAB CHEMISTRY METHOD 10/13/2024 7:19 AM [facility] Potassium 4.2 3.5 - 5.5 mmol/L LAB CHEMISTRY METHOD 10/13/2024 7:19 AM [facility] Chloride 100 96 - 110 mmol/L LAB CHEMISTRY METHOD 10/13/2024 7:19 AM [facility] LAB CO2 33(H) 21 - 32 mmol/L LAB CHEMISTRY METHOD 10/13/2024 7:19 AM [facility] LAB Anion Gap 4 3 - 11 LAB CHEMISTRY METHOD 10/13/2024 7:19 AM [facility] Glucose 261(H) 70 - 100 mg/dL LAB CHEMISTRY METHOD 10/13/2024 7:19 AM [facility] BUN 39(H) 5 - 25 mg/dL LAB CHEMISTRY METHOD 10/13/2024 7:19 AM [facility] Creatinine 1.29(H) 0.50 - 1.10 mg/dL LAB CHEMISTRY METHOD 10/13/2024 7:19 AM [facility] LAB eGFR 40(L) >=60 mL/min/1. 73m2 LAB CHEMISTRY METHOD 10/13/2024 7:19 AM [facility] LAB Comment:Calculation based on the Chronic Kidney Disease Epidemiology Collaboration (CKD-EPI) equation refit without adjustment for race. BUN/Creatinine Ratio 30.2 LAB CHEMISTRY METHOD 10/13/2024 7:19 AM EDT [facility] Calcium 9.2 8.5 - 10.5 mg/dL LAB CHEMISTRY METHOD 10/13/2024 7:19 AM [facility] Blood Venous blood specimen / Unknown Venipuncture / Unknown 10/13/2024 4:57 AM EDT 10/13/2024 5:56 AM EDT us Torrey Kwok MD LAB BLOOD ORDERABLES Final Resul t [facility] [address] [place] [address], * (ABNORMAL) Complete blood count (10/13/2024 4:57 AM EDT) WBC 5.0 4.8 - 10.8 K/mcL LAB HEMETOLOGY METHOD 10/13/2024 6:04 AM [facility] RBC 3.00(L) 3.80 - 4.80 M/mcL LAB HEMETOLOGY METHOD 10/13/2024 6:04 AM [facility] Hemoglobin 9.6(L) 11.5 - 16.0 g/dL LAB HEMETOLOGY METHOD 10/13/2024 6:04 AM [facility] LAB Hematocrit 30.1(L) 35.0 - 47.0 % LAB HEMETOLOGY METHOD 10/13/2024 6:04 AM [facility] LAB MCV 99.3(H) 79.0 - 98.0 FL LAB HEMETOLOGY METHOD 10/13/2024 6:04 AM [facility] LAB MCH 31.7 27.0 - 32.0 pcg LAB HEMETOLOGY METHOD 10/13/2024 6:04 AM [facility] LAB MCHC 31.9(L) 32.0 - 37.0 g/dL LAB HEMETOLOGY METHOD 10/13/2024 6:04 AM EDT [facility] RDW 18.7(H) 11.0 - 15.0 % LAB HEMETOLOGY METHOD 10/13/2024 6:04 AM EDT [facility] Platelets 307 130 - 400 K/mcL LAB HEMETOLOGY METHOD 10/13/2024 6:04 AM EDT [facility] MPV 10.8 7.0 - 11.0 FL LAB HEMETOLOGY METHOD 10/13/2024 6:04 AM EDT [facility] NRBC 0.0 <1.0 % LAB HEMETOLOGY METHOD 10/13/2024 6:04 AM EDT [facility] NRBC Absolute 0.00 <0.10 K/mcL LAB HEMETOLOGY METHOD 10/13/2024 6:04 AM EDT [facility] Blood Venous blood specimen / Unknown Venipuncture / Unknown 10/13/2024 4:57 AM EDT 10/13/2024 5:57 AM EDT us Torrey Kwok MD LAB BLOOD ORDERABLES Final Resul t [facility] [address] [place] [address], documented in this encounter Visit Diagnoses Diagnosis 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, CMS/HCC V28) Essential (primary) hypertension Unspecified essential hypertension Heart failure, unspecified (CMS/HCC V24, CMS/HCC V28) Heart failure, unspecified 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
--- OUTSIDE RECORDS SUMMARY | 2025-02-12 22:26 | XMS_ITS | Encounter Summary ---
Author Organization [facility] Address [address] [place] [address] Care Team Providers Care Heel Painter Name Role Phone Torrey Kwok MD Primary Care Provider [phone] Encounter Details Date Type Department Care Team (Late st Contact Info) Description 07/31/2024 Lab Requisition [facility] - Main Lab 299 [facility] [address] [place] [address] Torrey Kwok MD [address] [place], [place] [id number] Chronic diastolic (congestive) heart failure (CMS/HCC V24, [...] AM EDT) WBC 6.3 4.8 - 10.8 K/[facility] LAB HEMETOLOGY METHOD 08/01/2024 10:58 AM [facility] LAB RBC 3.30(L) 3.80 - 4.80 M/mcL LAB HEMETOLOGY METHOD 08/01/2024 10:58 AM [facility] LAB Hemoglobin 10.6(L) 11.5 - 16.0 g/dL LAB HEMETOLOGY METHOD 08/01/2024 10:58 AM [facility] LAB Hematocrit 32.5(L) 35.0 - 47.0 % LAB HEMETOLOGY METHOD 08/01/2024 10:58 AM [facility] MCV 99.1(H) 79.0 - 98.0 FL LAB HEMETOLOGY METHOD 08/01/2024 10:58 AM [facility] MCH 32.3(H) 27.0 - 32.0 pcg LAB HEMETOLOGY METHOD 08/01/2024 10:58 AM [facility] LAB MCHC 32.6 32.0 - 37.0 g/dL LAB HEMETOLOGY METHOD 08/01/2024 10:58 AM [facility] LAB RDW 16.4(H) 11.0 - 15.0 % LAB HEMETOLOGY METHOD 08/01/2024 10:58 AM [facility] LAB Platelets 311 130 - 400 K/mcL LAB HEMETOLOGY METHOD 08/01/2024 10:58 AM [facility] MPV 10.6 7.0 - 11.0 FL LAB HEMETOLOGY METHOD 08/01/2024 10:58 AM [facility] NRBC 0.0 <1.0 % LAB HEMETOLOGY METHOD 08/01/2024 10:58 AM [facility] LAB NRBC Absolute 0.00 <0.10 K/mcL LAB HEMETOLOGY METHOD 08/01/2024 10:58 AM [facility] LAB Blood Venous blood specimen / Unknown Venipuncture / Unknown 08/01/2024 8:17 AM EDT 08/01/2024 9:02 AM EDT us Torrey Kwok MD LAB BLOOD ORDERABLES Final Resul t [facility] [address] [place] [address], * (ABNORMAL) Basic metabolic panel (08/01/2024 8:17 AM EDT) [facility] Sodium 139 133 - 145 mmol/L LAB CHEMISTRY METHOD 08/01/2024 11:14 AM [facility] LAB Potassium 3.9 3.5 - 5.5 mmol/L LAB CHEMISTRY METHOD 08/01/2024 11:14 AM [facility] LAB Chloride 103 96 - 110 mmol/L LAB CHEMISTRY METHOD 08/01/2024 11:14 AM [facility] CO2 27 21 - 32 mmol/L LAB CHEMISTRY METHOD 08/01/2024 11:14 AM [facility] LAB Anion Gap 9 3 - 11 LAB CHEMISTRY METHOD 08/01/2024 11:14 AM [facility] LAB Glucose 125(H) 70 - 100 mg/dL LAB CHEMISTRY METHOD 08/01/2024 11:14 AM [facility] BUN 32(H) 5 - 25 mg/dL LAB CHEMISTRY METHOD 08/01/2024 11:14 AM [facility] Creatinine 1.35(H) 0.50 - 1.10 mg/dL LAB CHEMISTRY METHOD 08/01/2024 11:14 AM [facility] LAB eGFR 38(L) >=60 mL/min/1. 73m2 LAB CHEMISTRY METHOD 08/01/2024 11:14 AM [facility] LAB Comment:Calculation based on the Chronic Kidney Disease Epidemiology Collaboration (CKD-EPI) equation refit without adjustment for race. BUN/Creatinine Ratio 23.7 LAB CHEMISTRY METHOD 08/01/2024 11:14 AM EDT [facility] Calcium 8.4(L) 8.5 - 10.5 mg/dL LAB CHEMISTRY METHOD 08/01/2024 11:14 AM EDT [facility] LAB Blood Venous blood specimen / Unknown Venipuncture / Unknown 08/01/2024 8:17 AM EDT 08/01/2024 9:02 AM EDT Torrey Kwok MD LAB BLOOD ORDERABLES Final Resul t [facility] [address] [place] [address], documented in this encounter Visit Diagnoses Diagnosis Chronic diastolic (congestive) heart failure (CMS/HCC V24, CMS/HCC V28) documented in this encounter Care Teams Heel Painter Relationship Specialty Start Date End Date Torrey Kwok MD [address] [place] [address] [address] [place] [address] PCP - General Geriatric Medicine 04/25/24 documented as of this encounter
--- OUTSIDE RECORDS SUMMARY | 2025-02-12 22:26 | XMS_ITS | Encounter Summary ---
Author Organization [facility] Address [address] [place] [address] Care Team Providers Care Line Service Person Name Role Phone Torrey Kwok MD Primary Care Provider [phone] Encounter Details Date Type Department Care Team (Late st Contact Info) Description 05/30/2024 Lab Requisition [facility] - Main Lab [address] [place] [address] Torrey Kwok MD [address] [place], [place] [phone] Essential (primary) hypertension; Type 2 diabetes mellitus [...] LAB CHEMISTRY METHOD 05/30/2024 5:00 PM EST [facility] Potassium 3.6 3.5 - 5.5 mmol/L LAB CHEMISTRY METHOD 05/30/2024 5:00 PM [facility] Chloride 104 96 - 110 mmol/L LAB CHEMISTRY METHOD 05/30/2024 5:00 PM [facility] CO2 26 21 - 32 mmol/L LAB CHEMISTRY METHOD 05/30/2024 5:00 PM [facility] LAB Anion Gap 9 3 - 11 LAB CHEMISTRY METHOD 05/30/2024 5:00 PM [facility] Glucose 81 70 - 100 mg/dL LAB CHEMISTRY METHOD 05/30/2024 5:00 PM [facility] BUN 31(H) 5 - 25 mg/dL LAB CHEMISTRY METHOD 05/30/2024 5:00 PM [facility] Creatinine 1.11(H) 0.50 - 1.10 mg/dL LAB CHEMISTRY METHOD 05/30/2024 5:00 PM [facility] LAB eGFR 48(L) >=60 mL/min/1. 73m2 LAB CHEMISTRY METHOD 05/30/2024 5:00 PM [facility] LAB Comment:Calculation based on the Chronic Kidney Disease Epidemiology Collaboration (CKD-EPI) equation refit without adjustment for race. BUN/Creatinine Ratio 27.9 LAB CHEMISTRY METHOD 05/30/2024 5:00 PM [facility] LAB Calcium 8.8 8.5 - 10.5 mg/dL LAB CHEMISTRY METHOD 05/30/2024 5:00 PM [facility] LAB Blood Venous blood specimen / Unknown Venipuncture / Unknown 05/30/2024 3:45 PM EST 05/30/2024 4:21 PM EST us Torrey Kwok MD LAB BLOOD ORDERABLES Final Resul t [facility] [address] [place] [address], [place] [phone] * (ABNORMAL) Complete blood count (05/30/2024 3:45 PM EST) [facility] WBC 7.1 4.8 - 10.8 K/mcL LAB HEMETOLOGY METHOD 05/30/2024 4:35 PM [facility] RBC 3.20(L) 3.80 - 4.80 M/mcL LAB HEMETOLOGY METHOD 05/30/2024 4:35 PM [facility] Hemoglobin 10.3(L) 11.5 - 16.0 g/dL LAB HEMETOLOGY METHOD 05/30/2024 4:35 PM [facility] LAB Hematocrit 32.0(L) 35.0 - 47.0 % LAB HEMETOLOGY METHOD 05/30/2024 4:35 PM [facility] LAB MCV 100.0(H) 79.0 - 98.0 FL LAB HEMETOLOGY METHOD 05/30/2024 4:35 PM [facility] LAB MCH 32.2(H) 27.0 - 32.0 pcg LAB HEMETOLOGY METHOD 05/30/2024 4:35 PM [facility] MCHC 32.2 32.0 - 37.0 g/dL LAB HEMETOLOGY METHOD 05/30/2024 4:35 PM [facility] RDW 18.3(H) 11.0 - 15.0 % LAB HEMETOLOGY METHOD 05/30/2024 4:35 PM [facility] Platelets 319 130 - 400 K/mcL LAB HEMETOLOGY METHOD 05/30/2024 4:35 PM [facility] MPV 10.1 7.0 - 11.0 FL LAB HEMETOLOGY METHOD 05/30/2024 4:35 PM [facility] NRBC 0.0 <1.0 % LAB HEMETOLOGY METHOD 05/30/2024 4:35 PM [facility] NRBC Absolute 0.00 <0.10 K/mcL LAB HEMETOLOGY METHOD 05/30/2024 4:35 PM EST [facility] LAB Blood Venous blood specimen / Unknown Venipuncture / Unknown 05/30/2024 3:45 PM EST 05/30/2024 4:21 PM EST us Torrey Kwok MD LAB BLOOD ORDERABLES Final Resul t [facility] [address] [place] [address], documented in this encounter Visit Diagnoses Diagnosis Essential (primary) hypertension Unspecified essential hypertension Type 2 diabetes mellitus without complications (CMS/HCC V24, CMS/HCC V28) documented in this encounter Additional Health Concerns Infection Onset Date Last Indicated Resolved Time Respiratory Rule-Out 07/12/2024 07/11/2024 025 11:25 AM EDT documented as of this encounter Care Teams Line Service Person Relationship Specialty Start Date End Date Torrey Kwok MD [address] [place] [address] [address] [place] [address] PCP - General Geriatric Medicine 04/25/24 documented as of this encounter
--- OUTSIDE RECORDS SUMMARY | 2025-02-12 22:26 | XMS_ITS | Encounter Summary ---
Author Organization [facility] Address [address] [place] [phone] Care Team Providers Care Network Support Engineer Name Role Phone Torrey Kwok MD Primary Care Provider [phone] Encounter Details Date Type Department Care Team (Late st Contact Info) Description 01/24/2025 Lab Requisition [facility] - Main Lab [address] [facility] [place] [address] Torrey Kwok MD [address] [place], [place] [phone] Type 2 diabetes mellitus with diabetic chronic [...] Associated Diagnosis Comments COMPLETE BLOOD COUNT Routine 01/26/2025 7:10 AM EDT 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, CMS/HCC V28) Essential (primary) hypertension Heart failure, unspecified (CMS/HCC V24, CMS/HCC V28) 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 V24, CMS/HCC V28) THYROID STIMULATING HORMONE Routine 01/26/2025 7:10 AM EDT Type 2 diabetes mellitus with diabetic chronic kidney disease ([facility]/HCC V24, CMS/HCC V28) Essential (primary) hypertension Heart [...] encounter Results * (ABNORMAL) Thyroid stimulating hormone (01/26/2025 7:10 AM EDT) Pathologist [facility] TSH 62.60(H) 0.40 - 4.00 mcIU/mL LAB CHEMISTRY METHOD 01/26/2025 9:39 PM EDT [facility] Blood Venous blood specimen / Unknown Venipuncture / Unknown 01/26/2025 7:10 AM EDT 01/26/2025 10:00 AM EDT us Torrey Kwok MD LAB BLOOD ORDERABLES Final Resul t [facility] [address] [place] [address], * (ABNORMAL) Complete blood count (01/26/2025 7:10 AM EDT) WBC 6.9 4.8 - 10.8 K/[facility] LAB HEMETOLOGY METHOD 01/26/2025 10:59 AM EDT [facility] RBC 3.50(L) 3.80 - 4.80 M/mcL LAB HEMETOLOGY METHOD 01/26/2025 10:59 AM EDT [facility] Hemoglobin 10.7(L) 11.5 - 16.0 g/dL LAB HEMETOLOGY METHOD 01/26/2025 10:59 AM [facility] Hematocrit 33.5(L) 35.0 - 47.0 % LAB HEMETOLOGY METHOD 01/26/2025 10:59 AM [facility] LAB MCV 95.4 79.0 - 98.0 FL LAB HEMETOLOGY METHOD 01/26/2025 10:59 AM [facility] MCH 30.5 27.0 - 32.0 pcg LAB HEMETOLOGY METHOD 01/26/2025 10:59 AM [facility] MCHC 31.9(L) 32.0 - 37.0 g/dL LAB HEMETOLOGY METHOD 01/26/2025 10:59 AM [facility] RDW 16.6(H) 11.0 - 15.0 % LAB HEMETOLOGY METHOD 01/26/2025 10:59 AM [facility] Platelets 233 130 - 400 K/mcL LAB HEMETOLOGY METHOD 01/26/2025 10:59 AM [facility] MPV 11.3(H) 7.0 - 11.0 FL LAB HEMETOLOGY METHOD 01/26/2025 10:59 AM [facility] NRBC 0.0 <1.0 % LAB HEMETOLOGY METHOD 01/26/2025 10:59 AM [facility] NRBC Absolute 0.00 <0.10 K/mcL LAB HEMETOLOGY METHOD 01/26/2025 10:59 AM [facility] Blood Venous blood specimen / Unknown Venipuncture / Unknown 01/26/2025 7:10 AM EDT 01/26/2025 9:55 AM EDT Torrey Kwok MD LAB BLOOD ORDERABLES Final Resul t [facility] [address] [place] [address], * (ABNORMAL) Basic metabolic panel (01/26/2025 7:10 AM EDT) Sodium 134 133 - 145 mmol/L LAB CHEMISTRY METHOD 01/26/2025 11:35 AM EDT [facility] Potassium 4.4 3.5 - 5.5 mmol/L LAB CHEMISTRY METHOD 01/26/2025 11:35 AM [facility] Chloride 97 96 - 110 mmol/L LAB CHEMISTRY METHOD 01/26/2025 11:35 AM [facility] CO2 29 21 - 32 mmol/L LAB CHEMISTRY METHOD 01/26/2025 11:35 AM [facility] Anion Gap 8 3 - 11 LAB CHEMISTRY METHOD 01/26/2025 11:35 AM [facility] Glucose 172(H) 70 - 100 mg/dL LAB CHEMISTRY METHOD 01/26/2025 11:35 AM [facility] BUN 47(H) 5 - 25 mg/dL LAB CHEMISTRY METHOD 01/26/2025 11:35 AM [facility] Creatinine 1.66(H) 0.50 - 1.10 mg/dL LAB CHEMISTRY METHOD 01/26/2025 11:35 AM [facility] LAB eGFR 30(L) >=60 mL/min/1. 73m2 LAB CHEMISTRY METHOD 01/26/2025 11:35 AM [facility] LAB Comment:Calculation based on the Chronic Kidney Disease Epidemiology Collaboration (CKD-EPI) equation refit without adjustment for race. BUN/Creatinine Ratio 28.3 LAB CHEMISTRY METHOD 01/26/2025 11:35 AM [facility] Calcium 9.0 8.5 - 10.5 mg/dL LAB CHEMISTRY METHOD 01/26/2025 11:35 AM EDT [facility] Blood Venous blood specimen / Unknown Venipuncture / Unknown 01/26/2025 7:10 AM EDT 01/26/2025 10:00 AM EDT Torrey Kwok MD LAB BLOOD ORDERABLES Final Resul t [facility] [address] [place] [address], documented in this encounter Visit Diagnoses Diagnosis Type 2 diabetes mellitus with diabetic chronic kidney disease ([facility] V24, [facility] V28) Essential (primary) hypertension Unspecified essential hypertension Heart failure, unspecified ([facility] V24, [facility] V28) Heart failure, unspecified 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
--- OUTSIDE RECORDS SUMMARY | 2025-02-12 22:26 | XMS_ITS | Encounter Summary ---
Author Organization [facility] Address [address] [place] [phone] Care Team Providers Care Crossband Layer Name Role Phone Torrey Kwok MD Primary Care Provider [phone] Encounter Details Date Type Department Care Team (Late st Contact Info) Description 09/26/2024 Lab Requisition [facility] - Main Lab [address] [facility] [place] [address] Torrey Kwok MD [address] [place], [place] [phone] Type 2 diabetes mellitus with diabetic chronic [...] mellitus with diabetic chronic kidney disease ([facility] V24, [facility] V28) Essential (primary) hypertension Heart failure, unspecified ([facility] V24, [facility] V28) 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 ([facility] V24, [facility] V28) documented in this encounter Results * (ABNORMAL) Complete blood count (09/29/2024 6:25 AM EDT) [facility] WBC 8.8 4.8 - 10.8 K/mcL LAB HEMETOLOGY METHOD 09/29/2024 11:04 AM [facility] RBC 3.60(L) 3.80 - 4.80 M/mcL LAB HEMETOLOGY METHOD 09/29/2024 11:04 AM [facility] Hemoglobin 11.5 11.5 - 16.0 g/dL LAB HEMETOLOGY METHOD 09/29/2024 11:04 AM [facility] Hematocrit 35.3 35.0 - 47.0 % LAB HEMETOLOGY METHOD 09/29/2024 11:04 AM [facility] MCV 97.5 79.0 - 98.0 FL LAB HEMETOLOGY METHOD 09/29/2024 11:04 AM [facility] MCH 31.8 27.0 - 32.0 pcg LAB HEMETOLOGY METHOD 09/29/2024 11:04 AM [facility] MCHC 32.6 32.0 - 37.0 g/dL LAB HEMETOLOGY METHOD 09/29/2024 11:04 AM [facility] RDW 17.8(H) 11.0 - 15.0 % LAB HEMETOLOGY METHOD 09/29/2024 11:04 AM [facility] Platelets 283 130 - 400 K/mcL LAB HEMETOLOGY METHOD 09/29/2024 11:04 AM [facility] MPV 11.2(H) 7.0 - 11.0 FL LAB HEMETOLOGY METHOD 09/29/2024 11:04 AM EDT [facility] NRBC 0.0 <1.0 % LAB HEMETOLOGY METHOD 09/29/2024 11:04 AM EDT [facility] NRBC Absolute 0.00 <0.10 K/mcL LAB HEMETOLOGY METHOD 09/29/2024 11:04 AM EDT [facility] Blood Venous blood specimen / Unknown Venipuncture / Unknown 09/29/2024 6:25 AM EDT 09/29/2024 10:20 AM EDT Torrey Kwok MD LAB BLOOD ORDERABLES Final Resul t [facility] [address] [place] [address], * (ABNORMAL) Basic metabolic panel (09/29/2024 6:25 AM EDT) Sodium 136 133 - 145 mmol/L LAB CHEMISTRY METHOD 09/29/2024 12:10 PM [facility] Potassium 4.0 3.5 - 5.5 mmol/L LAB CHEMISTRY METHOD 09/29/2024 12:10 PM [facility] Chloride 96 96 - 110 mmol/L LAB CHEMISTRY METHOD 09/29/2024 12:10 PM [facility] CO2 29 21 - 32 mmol/L LAB CHEMISTRY METHOD 09/29/2024 12:10 PM [facility] Anion Gap 11 3 - 11 LAB CHEMISTRY METHOD 09/29/2024 12:10 PM [facility] Glucose 316(H) 70 - 100 mg/dL LAB CHEMISTRY METHOD 09/29/2024 12:10 PM [facility] BUN 30(H) 5 - 25 mg/dL LAB CHEMISTRY METHOD 09/29/2024 12:10 PM EDT [facility] Creatinine 1.28(H) 0.50 - 1.10 mg/dL LAB CHEMISTRY METHOD 09/29/2024 12:10 PM EDT [facility] eGFR 40(L) >=60 mL/min/1. 73m2 LAB CHEMISTRY METHOD 09/29/2024 12:10 PM EDT [facility] Comment:Calculation based on the Chronic Kidney Disease Epidemiology Collaboration (CKD-EPI) equation refit without adjustment for race. BUN/Creatinine Ratio 23.4 LAB CHEMISTRY METHOD 09/29/2024 12:10 PM EDT [facility] Calcium 8.7 8.5 - 10.5 mg/dL LAB CHEMISTRY METHOD 09/29/2024 12:10 PM EDT [facility] Blood Venous blood specimen / Unknown Venipuncture / Unknown 09/29/2024 6:25 AM EDT 09/29/2024 10:20 AM EDT us Torrey Kwok MD LAB BLOOD ORDERABLES Final Resul t [facility] [address] [place] [address], documented in this encounter Visit Diagnoses Diagnosis Type 2 diabetes mellitus with diabetic chronic kidney disease ([facility] V24, [facility] V28) Essential (primary) hypertension Unspecified essential hypertension Heart failure, unspecified ([facility]/HCC V24, [facility] V28) Heart failure, unspecified 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
--- OUTSIDE RECORDS SUMMARY | 2025-02-12 22:26 | XMS_ITS | Encounter Summary ---
Author Organization [facility] Address [address] [place] [phone] Care Team Providers Care Evaluation Assistant Name Role Phone Torrey Kwok MD Primary Care Provider [phone] Encounter Details Date Type Department Care Team (Late st Contact Info) Description 05/31/2024 Lab Requisition [facility] - Main Lab [address] [facility] [place] [address] Torrey Kwok MD [address] [place], [place] [phone] Type 2 diabetes mellitus with diabetic chronic [...] retinopathy without macular edema ([facility]) documented in this encounter Results * (ABNORMAL) [...] t [facility] [address] [place] [address], * (ABNORMAL) Complete blood count (06/02/2024 5:33 [...] 2:[address] [facility] MPV 10.4 7.0 - 11.0 [...] Resul t [facility] [address] [place] [address], documented in this encounter Visit Diagnoses Diagnosis [...] documented as of this encounter Care Teams Evaluation Assistant Relationship Specialty Start Date End Date Torrey Kwok MD [address] [place], [place] [phone] [place] [address] PCP - General Geriatric Medicine 04/25/24 documented as of this encounter
--- OUTSIDE RECORDS SUMMARY | 2025-02-12 22:26 | XMS_ITS | Encounter Summary ---
Author Organization [facility] Address [address] [place] [phone] Care Team Providers Care Area Intelligence Technician Name Role Phone Torrey Kwok MD Primary Care Provider [phone] Encounter Details Date Type Department Care Team (Late st Contact Info) Description 05/24/2024 Lab Requisition [facility] - Main Lab 299 [facility] [place] [address] Torrey Kwok MD [address] [place], [place] [phone] Type 2 diabetes mellitus with diabetic chronic [...] mmol/L LAB CHEMISTRY METHOD 05/26/2024 11:56 AM [facility] Potassium 3.5 3.5 - 5.5 mmol/L LAB CHEMISTRY METHOD 05/26/2024 11:56 AM [facility] Chloride 101 96 - 110 mmol/L LAB CHEMISTRY METHOD 05/26/2024 11:56 AM [facility] CO2 26 21 - 32 mmol/L LAB CHEMISTRY METHOD 05/26/2024 11:56 AM [facility] Anion Gap 14(H) 3 - 11 LAB CHEMISTRY METHOD 05/26/2024 11:56 AM [facility] Glucose 200(H) 70 - 100 mg/dL LAB CHEMISTRY METHOD 05/26/2024 11:56 AM [facility] BUN 35(H) 5 - 25 mg/dL LAB CHEMISTRY METHOD 05/26/2024 11:56 AM [facility] Creatinine 1.16(H) 0.50 - 1.10 mg/dL LAB CHEMISTRY METHOD 05/26/2024 11:56 AM EST [facility] eGFR 46(L) >=60 mL/min/1. 73m2 LAB CHEMISTRY METHOD 05/26/2024 11:56 AM [facility] Comment:Calculation based on the Chronic Kidney Disease Epidemiology Collaboration (CKD-EPI) equation refit without adjustment for race. BUN/Creatinine Ratio 30.2 LAB CHEMISTRY METHOD 05/26/2024 11:56 AM [facility] Calcium 8.9 8.5 - 10.5 mg/dL LAB CHEMISTRY METHOD 05/26/2024 11:56 AM [facility] AST (SGOT) 21 10 - 42 unit/L LAB CHEMISTRY METHOD 05/26/2024 11:56 AM [facility] ALT (SGPT) 20 10 - 60 unit/L LAB CHEMISTRY METHOD 05/26/2024 11:56 AM [facility] Alkaline Phosphatase 146(H) 42 - 121 unit/L LAB CHEMISTRY METHOD 05/26/2024 11:56 AM [facility] Total Protein 6.8 6.0 - 8.0 g/dL LAB CHEMISTRY METHOD 05/26/2024 11:56 AM [facility] Albumin 3.6 3.2 - 5.0 g/dL LAB CHEMISTRY METHOD 05/26/2024 11:56 AM [facility] Total Bilirubin 0.6 0.0 - 1.4 mg/dL LAB CHEMISTRY METHOD 05/26/2024 11:56 AM [facility] Blood Venous blood specimen / Unknown Venipuncture / Unknown 05/26/2024 5:59 AM EST 05/26/2024 11:00 AM EST us Torrey Kwok MD LAB BLOOD ORDERABLES Final Resul t [facility] [address] [place] [address], * (ABNORMAL) B-type natriuretic peptide (05/26/2024 5:59 AM EST) BNP 320(H) <=100 pcg/mL LAB CHEMISTRY METHOD 05/26/2024 1:35 PM [facility] Blood Venous blood specimen / Unknown Venipuncture / Unknown 05/26/2024 5:59 AM EST 05/26/2024 11:00 AM EST us Torrey Kwok MD LAB BLOOD ORDERABLES Final Resul t [facility] [address] [place] [address], * (ABNORMAL) Basic metabolic panel (05/26/2024 5:59 AM EST) Pathologist [facility] Sodium 141 133 - 145 mmol/L LAB CHEMISTRY METHOD 05/26/2024 11:50 AM [facility] Potassium 3.5 3.5 - 5.5 mmol/L LAB CHEMISTRY METHOD 05/26/2024 11:50 AM [facility] Chloride 101 96 - 110 mmol/L LAB CHEMISTRY METHOD 05/26/2024 11:50 AM [facility] CO2 26 21 - 32 mmol/L LAB CHEMISTRY METHOD 05/26/2024 11:50 AM [facility] Anion Gap 14(H) 3 - 11 LAB CHEMISTRY METHOD 05/26/2024 11:50 AM [facility] Glucose 200(H) 70 - 100 mg/dL LAB CHEMISTRY METHOD 05/26/2024 11:50 AM [facility] BUN 35(H) 5 - 25 mg/dL LAB CHEMISTRY METHOD 05/26/2024 11:50 AM [facility] Creatinine 1.16(H) 0.50 - 1.10 mg/dL LAB CHEMISTRY METHOD 05/26/2024 11:50 AM [facility] eGFR 46(L) >=60 mL/min/1. 73m2 LAB CHEMISTRY METHOD 05/26/2024 11:50 AM EST [facility] Comment:Calculation based on the Chronic Kidney Disease Epidemiology Collaboration (CKD-EPI) equation refit without adjustment for race. BUN/Creatinine Ratio 30.2 LAB CHEMISTRY METHOD 05/26/2024 11:50 AM EST [facility] Calcium 8.9 8.5 - 10.5 mg/dL LAB CHEMISTRY METHOD 05/26/2024 11:50 AM [facility] Blood Venous blood specimen / Unknown Venipuncture / Unknown 05/26/2024 5:59 AM EST 05/26/2024 11:00 AM EST Torrey Kwok MD LAB BLOOD ORDERABLES Final Resul t [facility] [address] [place] [address], * (ABNORMAL) Complete blood count (05/26/2024 5:59 AM EST) WBC 10.4 4.8 - 10.8 K/mcL LAB HEMETOLOGY METHOD 05/26/2024 11:12 AM [facility] RBC 3.30(L) 3.80 - 4.80 M/mcL LAB HEMETOLOGY METHOD 05/26/2024 11:12 AM [facility] Hemoglobin 10.7(L) 11.5 - 16.0 g/dL LAB HEMETOLOGY METHOD 05/26/2024 11:12 AM [facility] Hematocrit 34.0(L) 35.0 - 47.0 % LAB HEMETOLOGY METHOD 05/26/2024 11:12 AM [facility] MCV 102.1(H) 79.0 - 98.0 FL LAB HEMETOLOGY METHOD 05/26/2024 11:12 AM [facility] MCH 32.1(H) 27.0 - 32.0 pcg LAB HEMETOLOGY METHOD 05/26/2024 11:12 AM [facility] MCHC 31.5(L) 32.0 - 37.0 g/dL LAB HEMETOLOGY METHOD 05/26/2024 11:12 AM [facility] RDW 19.8(H) 11.0 - 15.0 % LAB HEMETOLOGY METHOD 05/26/2024 11:12 AM [facility] Platelets 418(H) 130 - 400 K/mcL LAB HEMETOLOGY METHOD 05/26/2024 11:12 AM [facility] MPV 10.0 7.0 - 11.0 FL LAB HEMETOLOGY METHOD 05/26/2024 11:12 AM [facility] NRBC 0.0 <1.0 % LAB HEMETOLOGY METHOD 05/26/2024 11:12 AM [facility] NRBC Absolute 0.00 <0.10 K/mcL LAB HEMETOLOGY METHOD 05/26/2024 11:12 AM [facility] Blood Venous blood specimen / Unknown Venipuncture / Unknown 05/26/2024 5:59 AM EST 05/26/2024 11:00 AM EST us Torrey Kwok MD LAB BLOOD ORDERABLES Final Resul t [facility] [address] [place] [address], documented in this encounter Visit Diagnoses Diagnosis 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, [facility] V28) Essential (primary) hypertension Unspecified essential hypertension Heart failure, unspecified (CMS/HCC V24, [facility] V28) Heart failure, unspecified 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
--- OUTSIDE RECORDS SUMMARY | 2025-02-12 22:26 | XMS_ITS | Encounter Summary ---
Author Organization [facility] Address [address] [place] [address] Care Team Providers Care [employer] Name Role Phone Torrey Kwok MD Primary Care Provider [phone] Encounter Details Date Type Department Care Team (Late st Contact Info) Description 06/02/2024 Lab Requisition [facility] - Main Lab [address] [facility] [place] [address] Torrey Kwok MD [address] [place], [place] [phone] Chronic diastolic (congestive) heart failure (CMS/HCC V24, [...] mmol/L LAB CHEMISTRY METHOD 06/02/2024 3:36 PM [facility] Potassium 3.5 3.5 - 5.5 mmol/L LAB CHEMISTRY METHOD 06/02/2024 3:36 PM [facility] Chloride 93(L) 96 - 110 mmol/L LAB CHEMISTRY METHOD 06/02/2024 3:36 PM [facility] CO2 29 21 - 32 mmol/L LAB CHEMISTRY METHOD 06/02/2024 3:36 PM [facility] Anion Gap 8 3 - 11 LAB CHEMISTRY METHOD 06/02/2024 3:36 PM [facility] Glucose 468(HH) 70 - 100 mg/dL LAB CHEMISTRY METHOD 06/02/2024 3:36 PM [facility] BUN 43(H) 5 - 25 mg/dL LAB CHEMISTRY METHOD 06/02/2024 3:36 PM [facility] Creatinine 1.43(H) 0.50 - 1.10 mg/dL LAB CHEMISTRY METHOD 06/02/2024 3:36 PM [facility] eGFR 36(L) >=60 mL/min/1. 73m2 LAB CHEMISTRY METHOD 06/02/2024 3:36 PM [facility] Comment:Calculation based on the Chronic Kidney Disease Epidemiology Collaboration (CKD-EPI) equation refit without adjustment for race. BUN/Creatinine Ratio 30.1 LAB CHEMISTRY METHOD 06/02/2024 3:36 PM [facility] Calcium 8.7 8.5 - 10.5 mg/dL LAB CHEMISTRY METHOD 06/02/2024 3:36 PM [facility] Blood Venous blood specimen / Unknown Venipuncture / Unknown 06/02/2024 12:17 PM EST 06/02/2024 2:05 PM EST Torrey Kwok MD LAB BLOOD ORDERABLES Final Resul t [facility] [address] [place] [address], * (ABNORMAL) Complete blood count (06/02/2024 12:17 PM EST) [facility] WBC 9.0 4.8 - 10.8 K/mcL LAB HEMETOLOGY METHOD 06/02/2024 2:27 PM EST [facility] RBC 3.60(L) 3.80 - 4.80 M/mcL LAB HEMETOLOGY METHOD 06/02/2024 2:27 PM EST [facility] Hemoglobin 11.5 11.5 - 16.0 g/dL LAB HEMETOLOGY METHOD 06/02/2024 2:27 PM [facility] Hematocrit 35.4 35.0 - 47.0 % LAB HEMETOLOGY METHOD 06/02/2024 2:27 PM EST [facility] MCV 97.8 79.0 - 98.0 FL LAB HEMETOLOGY METHOD 06/02/2024 2:27 PM EST [facility] MCH 31.8 27.0 - 32.0 pcg LAB HEMETOLOGY METHOD 06/02/2024 2:27 PM EST [facility] MCHC 32.5 32.0 - 37.0 g/dL LAB HEMETOLOGY METHOD 06/02/2024 2:27 PM EST [facility] RDW 17.8(H) 11.0 - 15.0 % LAB HEMETOLOGY METHOD 06/02/2024 2:27 PM EST [facility] Platelets 342 130 - 400 K/mcL LAB HEMETOLOGY METHOD 06/02/2024 2:27 PM [facility] MPV 10.4 7.0 - 11.0 [...] MD LAB BLOOD ORDERABLES Final Resul t [facility] [address] [place] [address], documented in this encounter Visit Diagnoses Diagnosis Chronic diastolic (congestive) heart failure (CMS/HCC V24, CMS/HCC V28) Chronic kidney disease, stage 3 unspecified (CMS/HCC V24, CMS/HCC V28) documented in this encounter Additional Health Concerns Infection Onset Date Last Indicated Resolved Time Respiratory Rule-Out 07/12/2024 07/11/2024 025 11:25 AM EDT documented as of this encounter Care Teams [employer] Relationship Specialty Start Date End Date Torrey Kwok MD [address] [place] [address] [address] [place] [address] PCP - General Geriatric Medicine 04/25/24 documented as of this encounter
--- OUTSIDE RECORDS SUMMARY | 2025-02-12 22:26 | XMS_ITS | Encounter Summary ---
Author Organization [facility] Address [address] [place] [phone] Care Team Providers Care Associate Spa Director Name Role Phone Torrey Kwok MD Primary Care Provider Encounter Details Date Type Department Care Team (Late st Contact Info) Description 07/11/2024 Lab Requisition [facility] - Main Lab [address] [facility] [place] [address] Torrey Kwok MD [address] [place], [place] [phone] Type 2 diabetes mellitus with diabetic chronic [...] documented as of this encounter Care Teams Associate Spa Director Relationship Specialty Start Date End Date Torrey Kwok MD [address] [place], [place] [phone] PCP - General Geriatric Medicine 04/25/24 documented as of this encounter
--- OUTSIDE RECORDS SUMMARY | 2025-02-12 22:26 | XMS_ITS | Encounter Summary ---
Author Organization [facility] Address [address] [place] [address] Care Team Providers Care Pigs Feet Cleaner Name Role Phone Torrey Kwok MD Primary Care Provider [phone] Encounter Details Date Type Department Care Team (Late st Contact Info) Description 05/05/2024 Lab Requisition [facility] Lab [address] [place] [address] Torrey Kwok MD [address] [place], [place] [phone] Chronic kidney disease, stage 3 unspecified (CMS/HCC [...] LAB CHEMISTRY METHOD 05/05/2024 2:05 PM EST [facility] Potassium 5.0 3.5 - 5.5 mmol/L LAB CHEMISTRY METHOD 05/05/2024 2:05 PM [facility] Comment:Hemolysis present Chloride 99 [...] Resul t [facility] [address] [place] [address], documented in this encounter Visit Diagnoses Diagnosis Chronic kidney disease, stage 3 unspecified (CMS/[facility] V24, [facility] V28) Type 2 diabetes mellitus with diabetic chronic kidney disease ([facility] V24, [facility] V28) documented in this encounter Additional Health Concerns Infection Onset Date Last Indicated Resolved Time Respiratory Rule-Out 07/12/2024 07/11/2024 025 11:25 AM EDT documented as of this encounter Care Teams Pigs Feet Cleaner Relationship Specialty Start Date End Date Torrey Kwok MD [address] [place] [address] [address] [place] [address] PCP - General Geriatric Medicine 04/25/24 documented as of this encounter
--- OUTSIDE RECORDS SUMMARY | 2025-02-12 22:26 | XMS_ITS | Encounter Summary ---
Author Organization [facility] Address [address] [place] [phone] Care Team Providers Care Mortgage Counselor Name Role Phone oTrrey Kwok MD Primary Care Provider [phone] Encounter Details Date Type Department Care Team (Late st Contact Info) Description 07/11/2024 Lab Requisition [facility] - Main Lab 299 [facility] [place] [address] Torrey Kwok MD [address] [place], [place] [phone] Chronic kidney disease, stage 3 unspecified (CMS/HCC [...] LAB CHEMISTRY METHOD 07/11/2024 12:06 PM EDT [facility] Potassium 4.3 3.5 - 5.5 mmol/L LAB CHEMISTRY METHOD 07/11/2024 12:06 PM EDT [facility] Chloride 101 96 - 110 mmol/L LAB CHEMISTRY METHOD 07/11/2024 12:06 PM [facility] CO2 26 21 - 32 mmol/L LAB CHEMISTRY METHOD 07/11/2024 12:06 PM [facility] Anion Gap 8 3 - 11 LAB CHEMISTRY METHOD 07/11/2024 12:06 PM [facility] Glucose 216(H) 70 - 100 mg/dL LAB CHEMISTRY METHOD 07/11/2024 12:06 PM [facility] BUN 45(H) 5 - 25 mg/dL LAB CHEMISTRY METHOD 07/11/2024 12:06 PM [facility] Creatinine 1.38(H) 0.50 - 1.10 mg/dL LAB CHEMISTRY METHOD 07/11/2024 12:06 PM [facility] eGFR 37(L) >=60 mL/min/1. 73m2 LAB CHEMISTRY METHOD 07/11/2024 12:06 PM [facility] Comment:Calculation based on the Chronic Kidney Disease Epidemiology Collaboration (CKD-EPI) equation refit without adjustment for race. BUN/Creatinine Ratio 32.6 LAB CHEMISTRY METHOD 07/11/2024 12:06 PM [facility] Calcium 8.8 8.5 - 10.5 mg/dL LAB CHEMISTRY METHOD 07/11/2024 12:06 PM [facility] Blood Venous blood specimen / Unknown Venipuncture / Unknown 07/11/2024 6:58 AM EDT 07/11/2024 10:53 AM EDT us Torrey Kwok MD LAB BLOOD ORDERABLES Final Resul t [facility] [address] [place] [address], [place] [phone] documented in this encounter Visit Diagnoses Diagnosis Chronic kidney disease, stage 3 unspecified (CMS/HCC V24, CMS/HCC V28) documented in this encounter Additional Health Concerns Infection Onset Date Last Indicated Resolved Time Respiratory Rule-Out 07/12/2024 07/11/2024 025 11:25 AM EDT documented as of this encounter Care Teams Mortgage Counselor Relationship Specialty Start Date End Date Torrey Kwok MD [address] [place] [address] [address] [place] [address] PCP - General Geriatric Medicine 04/25/24 documented as of this encounter
--- OUTSIDE RECORDS SUMMARY | 2025-02-12 22:26 | XMS_ITS | Encounter Summary ---
Author Organization [facility] Address [address] [place] [phone] Care Team Providers Care Sports Athletic Trainer Name Role Phone Torrey Kwok MD Primary Care Provider [phone] Encounter Details Date Type Department Care Team (Late st Contact Info) Description 10/17/2024 Lab Requisition [facility] - Main Lab 299 [facility] [place] [address] Torrey Kwok MD [address] [place], [place] [id number] Type 2 diabetes mellitus with diabetic chronic [...] mellitus with diabetic chronic kidney disease ([facility] V24, [facility] V28) Essential (primary) hypertension Heart failure, unspecified ([facility] V24, [facility] V28) 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 ([facility] V24, [facility] V28) documented in this encounter Results * (ABNORMAL) Basic metabolic panel (10/20/2024 5:58 AM EDT) Sodium 135 133 - 145 mmol/L LAB CHEMISTRY METHOD 10/20/2024 5:05 PM [facility] Potassium 4.5 3.5 - 5.5 mmol/L LAB CHEMISTRY METHOD 10/20/2024 5:05 PM [facility] Chloride 99 96 - 110 mmol/L LAB CHEMISTRY METHOD 10/20/2024 5:05 PM [facility] CO2 26 21 - 32 mmol/L LAB CHEMISTRY METHOD 10/20/2024 5:05 PM [facility] Anion Gap 10 3 - 11 LAB CHEMISTRY METHOD 10/20/2024 5:05 PM [facility] Glucose 339(H) 70 - 100 mg/dL LAB CHEMISTRY METHOD 10/20/2024 5:05 PM [facility] BUN 43(H) 5 - 25 mg/dL LAB CHEMISTRY METHOD 10/20/2024 5:05 PM [facility] Creatinine 1.48(H) 0.50 - 1.10 mg/dL LAB CHEMISTRY METHOD 10/20/2024 5:05 PM [facility] eGFR 34(L) >=60 mL/min/1. 73m2 LAB CHEMISTRY METHOD 10/20/2024 5:05 PM [facility] Comment:Calculation based on the Chronic Kidney Disease Epidemiology Collaboration (CKD-EPI) equation refit without adjustment for race. BUN/Creatinine Ratio 29.1 LAB CHEMISTRY METHOD 10/20/2024 5:[address] [facility] Calcium 8.6 8.5 - 10.5 mg/dL LAB CHEMISTRY METHOD 10/20/2024 5:[address] [facility] Blood Venous blood specimen / Unknown Venipuncture / Unknown 10/20/2024 5:58 AM EDT 10/20/2024 5:05 PM EDT us Torrey Kwok MD LAB BLOOD ORDERABLES Final Resul t [facility] [address] [place] [address], * (ABNORMAL) Complete blood count (10/20/2024 5:58 AM EDT) WBC 6.8 4.8 - 10.8 K/mcL LAB HEMETOLOGY METHOD [facility] RBC 3.20(L) 3.80 - 4.80 M/mcL LAB HEMETOLOGY METHOD 10/20/2024 12:33 PM [facility] Hemoglobin 9.9(L) 11.5 - 16.0 g/dL LAB HEMETOLOGY METHOD 10/20/2024 12:33 PM [facility] Hematocrit 32.1(L) 35.0 - 47.0 % LAB HEMETOLOGY METHOD 10/20/2024 12:[address] [facility] MCV 100.0(H) 79.0 - 98.0 FL LAB HEMETOLOGY METHOD 10/20[facility]2024 12[facility] MCH 30.8 27.0 - 32.0 pcg LAB HEMETOLOGY METHOD 10/20/2024 12:33 PM [facility] MCHC 30.8(L) 32.0 - 37.0 g/dL LAB HEMETOLOGY METHOD 10/20/2024 12:[address] [facility] RDW 18.8(H) 11.0 - 15.0 % LAB HEMETOLOGY METHOD 10/20/2024 12:[address] [facility] Platelets 289 130 - 400 K/mcL LAB HEMETOLOGY METHOD 10/20/2024 12:[address] [facility] MPV 11.0 7.0 - 11.0 FL LAB HEMETOLOGY METHOD 10/20/2024 12:[address] [facility] NRBC 0.0 <1.0 % LAB HEMETOLOGY METHOD 10/20/2024 12:[address] [facility] NRBC Absolute 0.00 <0.10 K/mcL LAB HEMETOLOGY METHOD 10/20/2024 12:[address] [facility] Blood Venous blood specimen / Unknown Venipuncture / Unknown 10/20/2024 5:58 AM EDT 10/20/2024 11:44 AM EDT us Torrey Kwok MD LAB BLOOD ORDERABLES Final Resul t 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
--- OUTSIDE RECORDS SUMMARY | 2025-02-12 22:26 | XMS_ITS | Encounter Summary ---
Author Organization [facility] Address [address] [place] [phone] Care Team Providers Care Candy Spreader Name Role Phone Torrey Kwok MD Primary Care Provider [phone] Encounter Details Date Type Department Care Team (Late st Contact Info) Description 09/12/2024 Lab Requisition [facility] - Main Lab 299 [facility] [place] [address] Torrey Kwok MD [address] [place], [place] [phone] Type 2 diabetes mellitus with diabetic chronic [...] Complete blood count (09/15/2024 6:09 AM EDT) [facility] Signature WBC 6.5 4.8 - 10.8 K/mcL LAB HEMETOLOGY METHOD 09/15/2024 2:36 PM EDT [facility] RBC 3.70(L) 3.80 - 4.80 M/mcL LAB HEMETOLOGY METHOD 09/15/2024 2:36 PM EDT [facility] Hemoglobin 11.5 11.5 - 16.0 g/dL LAB HEMETOLOGY METHOD 09/15/2024 2:36 PM EDT [facility] Hematocrit 36.4 35.0 - 47.0 % LAB HEMETOLOGY METHOD 09/15/2024 2:36 PM EDT [facility] MCV 99.5(H) 79.0 - 98.0 FL LAB HEMETOLOGY METHOD 09/15/2024 2:36 PM EDT [facility] MCH 31.4 27.0 - 32.0 pcg LAB HEMETOLOGY METHOD 09/15/2024 2:36 PM EDT [facility] MCHC 31.6(L) 32.0 - 37.0 g/dL LAB HEMETOLOGY METHOD 09/15/2024 2:36 PM EDT [facility] RDW 16.9(H) 11.0 - 15.0 % LAB HEMETOLOGY METHOD 09/15/2024 2:36 PM EDT [facility] Platelets 299 130 - 400 K/mcL LAB HEMETOLOGY METHOD 09/15/2024 2:36 PM EDT [facility] MPV 10.6 7.0 - 11.0 FL LAB HEMETOLOGY METHOD 09/15/2024 2:36 PM EDT [facility] NRBC 0.0 <1.0 % LAB HEMETOLOGY METHOD 09/15/2024 2:36 PM EDT [facility] NRBC Absolute 0.00 <0.10 K/mcL LAB HEMETOLOGY METHOD 09/15/2024 2:36 PM [facility] Blood Venous blood specimen / Unknown Venipuncture / Unknown 09/15/2024 6:09 AM EDT 09/15/2024 11:09 AM EDT us Torrey Kwok MD LAB BLOOD ORDERABLES Final Resul t [facility] [address] [place] [address], * (ABNORMAL) Basic metabolic panel (09/15/2024 6:09 AM EDT) Sodium 137 133 - 145 mmol/L LAB CHEMISTRY METHOD 09/15/2024 12:42 PM [facility] Potassium 3.9 3.5 - 5.5 mmol/L LAB CHEMISTRY METHOD 09/15/2024 12:42 PM [facility] Chloride 99 96 - 110 mmol/L LAB CHEMISTRY METHOD 09/15/2024 12:42 PM [facility] CO2 27 21 - 32 mmol/L LAB CHEMISTRY METHOD 09/15/2024 12:42 PM [facility] Anion Gap 11 3 - 11 LAB CHEMISTRY METHOD 09/15/2024 12:42 PM [facility] Glucose 318(H) 70 - 100 mg/dL LAB CHEMISTRY METHOD 09/15/2024 12:42 PM [facility] BUN 30(H) 5 - 25 mg/dL LAB CHEMISTRY METHOD 09/15/2024 12:42 PM [facility] Creatinine 1.23(H) 0.50 - 1.10 mg/dL LAB CHEMISTRY METHOD 09/15/2024 12:42 PM [facility] eGFR 42(L) >=60 mL/min/1. 73m2 LAB CHEMISTRY METHOD 09/15/2024 12:42 PM EDT [facility] Comment:Calculation based on the Chronic Kidney Disease Epidemiology Collaboration (CKD-EPI) equation refit without adjustment for race. BUN/Creatinine Ratio 24.4 LAB CHEMISTRY METHOD 09/15/2024 12:42 PM EDT [facility] Calcium 8.4(L) 8.5 - 10.5 mg/dL LAB CHEMISTRY METHOD 09/15/2024 12:42 PM EDT [facility] Blood Venous blood specimen / Unknown Venipuncture / Unknown 09/15/2024 6:09 AM EDT 09/15/2024 11:09 AM EDT Torrey Kwok MD LAB BLOOD ORDERABLES Final Resul t [facility] [address] [place] [address], documented in this encounter Visit Diagnoses Diagnosis 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, CMS/HCC V28) Essential (primary) hypertension Unspecified essential hypertension Heart failure, unspecified (CMS/HCC V24, CMS/HCC V28) Heart failure, unspecified documented in this encounter Care Teams Candy Spreader Relationship Specialty Start Date End Date Torrey Kwok MD [address] [place] [address] [address] [place] [address] PCP - General Geriatric Medicine 04/25/24 documented as of this encounter
--- OUTSIDE RECORDS SUMMARY | 2025-02-12 22:26 | XMS_ITS | Encounter Summary ---
Author Organization [facility] Address [address] [place] [phone] Care Team Providers Care Tax Compliance Manager Name Role Phone Torrey Kwok MD Primary Care Provider Encounter Details Date Type Department Care Team (Late st Contact Info) Description 02/02/2025 Lab Requisition [facility] - Main Lab 299 [facility] [place] [address] Torrey Kwok MD [address] [place], [place] [phone] Type 2 diabetes mellitus with diabetic chronic [...] Associated Diagnosis Comments BASIC METABOLIC PANEL Routine 02/03/2025 8:05 AM EDT 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, CMS/HCC V28) Essential (primary) hypertension Heart failure, unspecified (CMS/HCC V24, CMS/HCC V28) 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 V24, CMS/HCC V28) documented in this encounter Results * (ABNORMAL) Basic metabolic panel (02/03/2025 8:05 AM EDT) Sodium 134 133 - 145 mmol/L LAB CHEMISTRY METHOD 02/03/2025 10:44 AM [facility] Potassium 4.1 3.5 - 5.5 mmol/L LAB CHEMISTRY METHOD 02/03/2025 10:44 AM [facility] Chloride 97 96 - 110 mmol/L LAB CHEMISTRY METHOD 02/03/2025 10:44 AM [facility] CO2 32 21 - 32 mmol/L LAB CHEMISTRY METHOD 02/03/2025 10:44 AM [facility] Anion Gap 5 3 - 11 LAB CHEMISTRY METHOD 02/03/2025 10:44 AM [facility] Glucose 182(H) 70 - 100 mg/dL LAB CHEMISTRY METHOD 02/03/2025 10:44 AM [facility] BUN 45(H) 5 - 25 mg/dL LAB CHEMISTRY METHOD 02/03/2025 10:44 AM [facility] Creatinine 1.33(H) 0.50 - 1.10 mg/dL LAB CHEMISTRY METHOD 02/03/2025 10:44 AM [facility] eGFR 39(L) >=60 mL/min/1. 73m2 LAB CHEMISTRY METHOD 02/03/2025 10:44 AM [facility] Comment:Calculation based on the Chronic Kidney Disease Epidemiology Collaboration (CKD-EPI) equation refit without adjustment for race. BUN/Creatinine Ratio 33.8 LAB CHEMISTRY METHOD 02/03/2025 10:44 AM [facility] Calcium 9.1 8.5 - 10.5 mg/dL LAB CHEMISTRY METHOD 02/03/2025 10:44 AM [facility] Blood Venous blood specimen / Unknown Venipuncture / Unknown 02/03/2025 8:05 AM EDT 02/03/2025 10:02 AM EDT Torrey Kwok MD LAB BLOOD ORDERABLES Final Resul t [facility] [address] [place] [address], documented in this encounter Visit Diagnoses Diagnosis Type 2 diabetes mellitus with diabetic chronic kidney disease (CMS/[facility] V24, CMS/[facility] V28) Essential (primary) hypertension Unspecified essential hypertension Heart failure, unspecified (CMS/[facility] V24, CMS/[facility] V28) Heart failure, unspecified 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
--- OUTSIDE RECORDS SUMMARY | 2025-02-12 22:26 | XMS_ITS | Encounter Summary ---
Author Organization [facility] Address [address] [place] [phone] Care Team Providers Care Tar Heat Exchanger Cleaner Name Role Phone Torrey Kwok MD Primary Care Provider [phone] Encounter Details Date Type Department Care Team (Late st Contact Info) Description 09/05/2024 Lab Requisition [facility] - Main Lab 299 [facility] [place] [address] Torrey Kwok MD [address] [place], [place] [phone] Type 2 diabetes mellitus with diabetic chronic [...] diabetes mellitus with diabetic chronic kidney disease ([facility] V24, [facility] V28) Essential (primary) hypertension Heart failure, unspecified ([facility] V24, [facility] V28) 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 ([facility] V24, [facility] V28) documented in this encounter Results * (ABNORMAL) Complete blood count (09/08/2024 7:03 AM EDT) [facility] WBC 8.9 4.8 - 10.8 K/mcL LAB HEMETOLOGY METHOD 09/08/2024 11:16 AM [facility] RBC 3.70(L) 3.80 - 4.80 M/mcL LAB HEMETOLOGY METHOD 09/08/2024 11:16 AM [facility] Hemoglobin 11.6 11.5 - 16.0 g/dL LAB HEMETOLOGY METHOD 09/08/2024 11:16 AM [facility] Hematocrit 35.5 35.0 - 47.0 % LAB HEMETOLOGY METHOD 09/08/2024 11:16 AM [facility] MCV 97.0 79.0 - 98.0 FL LAB HEMETOLOGY METHOD 09/08/2024 11:16 AM [facility] MCH 31.7 27.0 - 32.0 pcg LAB HEMETOLOGY METHOD 09/08/2024 11:16 AM [facility] MCHC 32.7 32.0 - 37.0 g/dL LAB HEMETOLOGY METHOD 09/08/2024 11:16 AM [facility] RDW 16.2(H) 11.0 - 15.0 % LAB HEMETOLOGY METHOD 09/08/2024 11:16 AM [facility] Platelets 323 130 - 400 K/mcL LAB HEMETOLOGY METHOD 09/08/2024 11:16 AM [facility] MPV 10.3 7.0 - 11.0 FL LAB HEMETOLOGY METHOD 09/08/2024 11:16 AM EDT [facility] NRBC 0.0 <1.0 % [facility] 09/08/2024 11:16 AM EDT [facility] NRBC Absolute 0.00 <0.10 K/mcL LAB [facility] 09/08/2024 11:16 AM EDT [facility] Blood Venous blood specimen / Unknown Venipuncture / Unknown 09/08/2024 7:03 AM EDT 09/08/2024 10:18 AM EDT us Torrey Kwok MD LAB BLOOD ORDERABLES Final Resul t [facility] [address] [place] [address], * (ABNORMAL) Basic metabolic panel (09/08/2024 7:03 AM EDT) Sodium 137 133 - 145 mmol/L LAB CHEMISTRY METHOD 09/08/2024 11:08 AM [facility] Potassium 3.9 3.5 - 5.5 mmol/L LAB CHEMISTRY METHOD 09/08/2024 11:08 AM [facility] Chloride 99 96 - 110 mmol/L LAB CHEMISTRY METHOD 09/08/2024 11:08 AM [facility] CO2 27 21 - 32 mmol/L LAB CHEMISTRY METHOD 09/08/2024 11:08 AM [facility] Anion Gap 11 3 - 11 LAB CHEMISTRY METHOD 09/08/2024 11:08 AM [facility] Glucose 330(H) 70 - 100 mg/dL LAB CHEMISTRY METHOD 09/08/2024 11:08 AM [facility] BUN 24 5 - 25 mg/dL LAB CHEMISTRY METHOD 09/08/2024 11:08 AM EDT [facility] Creatinine 1.27(H) 0.50 - 1.10 mg/dL LAB CHEMISTRY METHOD 09/08/2024 11:08 AM EDT [facility] eGFR 41(L) >=60 mL/min/1. 73m2 LAB CHEMISTRY METHOD 09/08/2024 11:08 AM EDT [facility] Comment:Calculation based on the Chronic Kidney Disease Epidemiology Collaboration (CKD-EPI) equation refit without adjustment for race. BUN/Creatinine Ratio 18.9 LAB CHEMISTRY METHOD 09/08/2024 11:08 AM T [facility] Calcium 9.0 8.5 - 10.5 mg/dL LAB CHEMISTRY METHOD 09/08/2024 11:08 AM T [facility] Blood Venous blood specimen / Unknown Venipuncture / Unknown 09/08/2024 7:03 AM EDT 09/08/2024 10:18 AM EDT us Torrey Kwok MD LAB BLOOD ORDERABLES Final Resul t [facility] [address] [place] [address], documented in this encounter Visit Diagnoses Diagnosis Type 2 diabetes mellitus with diabetic chronic kidney disease ([facility] V24, [facility] V28) Essential (primary) hypertension Unspecified essential hypertension Heart failure, unspecified ([facility] V24, [facility] V28) Heart failure, unspecified 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
--- OUTSIDE RECORDS SUMMARY | 2025-02-12 22:26 | XMS_ITS | Encounter Summary ---
Author Organization [facility] Address [address] [place] [phone] Care Team Providers Care Aerographer Name Role Phone Torrey Kwok MD Primary Care Provider [phone] Encounter Details Date Type Department Care Team (Late st Contact Info) Description 08/23/2024 Lab Requisition [facility] - Main Lab 299 [facility] [place] [address] Torrey Kwok MD [address] [place], [place] [phone] Type 2 diabetes mellitus with diabetic chronic [...] diabetes mellitus with diabetic chronic kidney disease ([facility] V24, [facility] V28) Essential (primary) hypertension Heart failure, unspecified ([facility] V24, [facility] V28) 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 ([facility] V24, [facility] V28) documented in this encounter Results * (ABNORMAL) Basic metabolic panel (08/25/2024 8:58 AM EDT) Sodium 135 133 - 145 mmol/L LAB CHEMISTRY METHOD 08/25/2024 12:46 PM [facility] Potassium 4.0 3.5 - 5.5 mmol/L LAB CHEMISTRY METHOD 08/25/2024 12:46 PM [facility] Chloride 101 96 - 110 mmol/L LAB CHEMISTRY METHOD 08/25/2024 12:46 PM [facility] CO2 27 21 - 32 mmol/L LAB CHEMISTRY METHOD 08/25/2024 12:46 PM [facility] Anion Gap 7 3 - 11 LAB CHEMISTRY METHOD 08/25/2024 12:46 PM [facility] Glucose 278(H) 70 - 100 mg/dL LAB CHEMISTRY METHOD 08/25/2024 12:46 PM [facility] BUN 29(H) 5 - 25 mg/dL LAB CHEMISTRY METHOD 08/25/2024 12:46 PM [facility] Creatinine 1.11(H) 0.50 - 1.10 mg/dL LAB CHEMISTRY METHOD 08/25/2024 12:46 PM [facility] eGFR 48(L) >=60 mL/min/1. 73m2 LAB CHEMISTRY METHOD 08/25/2024 12:46 PM [facility] Comment:Calculation based on the Chronic Kidney Disease Epidemiology Collaboration (CKD-EPI) equation refit without adjustment for race. BUN/Creatinine Ratio 26.1 LAB CHEMISTRY METHOD 08/25/2024 12:46 PM EDT [facility] Calcium 8.8 8.5 - 10.5 mg/dL LAB CHEMISTRY METHOD 08/25/2024 12:46 PM EDT [facility] Blood Venous blood specimen / Unknown Venipuncture / Unknown 08/25/2024 8:58 AM EDT 08/25/2024 10:57 AM EDT us Torrey Kwok MD LAB BLOOD ORDERABLES Final Resul t [facility] [address] [place] [address], * (ABNORMAL) Complete blood count (08/25/2024 8:58 AM EDT) WBC 5.1 4.8 - 10.8 K/mcL LAB [facility] RBC 3.70(L) 3.80 - 4.80 M/[facility] LAB HEMETOLOGY METHOD 08/25/2024 1:39 PM EDT [facility] Hemoglobin 11.8 11.5 - 16.0 g/dL LAB HEMETOLOGY METHOD 08/25/2024 1:39 PM EDT [facility] Hematocrit 37.4 35.0 - 47.0 % LAB HEMETOLOGY METHOD 08/25/2024 1:39 PM EDT [facility] MCV 100.0(H) 79.0 - 98.0 FL LAB HEMETOLOGY METHOD 08/25/2024 1:39 PM EDT [facility] MCH 31.6 27.0 - 32.0 pcg LAB HEMETOLOGY METHOD [facility]24 [facility] MCHC 31.6(L) 32.0 - 37.0 g/dL LAB HEMETOLOGY METHOD 08/25/2024 1:39 PM EDT [facility] RDW 15.9(H) 11.0 - 15.0 % LAB HEMETOLOGY METHOD 08/25/2024 1:39 PM EDT [facility] Platelets 270 130 - 400 K/mcL LAB HEMETOLOGY METHOD 08/25/2024 1:39 PM EDT [facility] MPV 10.8 7.0 - 11.0 FL LAB HEMETOLOGY METHOD 08/25/2024 1:39 PM EDT [facility] NRBC 0.0 <1.0 % LAB HEMETOLOGY METHOD 08/25/2024 1:39 PM EDT [facility] NRBC Absolute 0.00 <0.10 K/mcL LAB HEMETOLOGY METHOD 08/25/2024 1:39 PM EDT [facility] Blood Venous blood specimen / Unknown Venipuncture / Unknown 08/25/2024 8:58 AM EDT 08/25/2024 10:57 AM EDT us Torrey Kwok MD LAB BLOOD ORDERABLES Final Resul t [facility] [address] [place] [address], documented in this encounter Visit Diagnoses Diagnosis 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, CMS/HCC V28) Essential (primary) hypertension Unspecified essential hypertension Heart failure, unspecified (CMS/HCC V24, CMS/HCC V28) Heart failure, unspecified 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
--- OUTSIDE RECORDS SUMMARY | 2025-02-12 22:26 | XMS_ITS | Encounter Summary ---
Author Organization [facility] Address [address] [place] [phone] Care Team Providers Care Pesticide Use Medical Coordinator Name Role Phone Torrey Kwok MD Primary Care Provider [phone] Encounter Details Date Type Department Care Team (Late st Contact Info) Description 11/22/2024 Lab Requisition [facility] - Main Lab 299 [facility] [place] [address] Torrey Kwok MD [address] [place], [place] [phone] Type 2 diabetes mellitus with diabetic chronic [...] mellitus with diabetic chronic kidney disease ([facility]) Essential (primary) hypertension Heart failure, unspecified (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, [facility]28) documented in this encounter Results * (ABNORMAL) Complete blood count (11/24/2024 9:52 AM EDT) [facility] WBC 7.4 4.8 - 10.8 K/mcL LAB HEMETOLOGY METHOD 11/24/2024 12:48 PM EDT [facility] RBC 3.10(L) 3.80 - 4.80 M/mcL LAB [facility] Hemoglobin 9.8(L) 11.5 - 16.0 g/dL LAB HEMETOLOGY METHOD 11/24/2024 12:48 PM EDT [facility] Hematocrit 31.9(L) 35.0 - 47.0 % LAB HEMETOLOGY METHOD 11/24[facility]2024 [facility] MCV 102.9(H) 79.0 - 98.0 FL LAB HEMETOLOGY METHOD 11/24/2024 12[facility] MCH 31.6 27.0 - 32.0 pcg LAB HEMETOLOGY METHOD 11/24/2024 12:48 PM EDT [facility] MCHC 30.7(L) 32.0 - 37.0 g/dL LAB HEMETOLOGY METHOD 11/24/2024 12[facility] RDW 17.1(H) 11.0 - 15.0 % LAB HEMETOLOGY METHOD 11/24/2024 12:48 PM [facility] Platelets 278 130 - 400 K/mcL LAB HEMETOLOGY METHOD 11/24/2024 12:48 PM EDT [facility] MPV 10.4 7.0 - 11.0 FL LAB HEMETOLOGY METHOD 11/24/2024 12:48 PM EDT [facility] NRBC 0.0 <1.0 % LAB HEMETOLOGY METHOD 11/24/2024 12:48 PM EDT [facility] NRBC Absolute 0.00 <0.10 K/mcL LAB HEMETOLOGY METHOD 11/24/2024 12:48 PM EDT [facility] Blood Venous blood specimen / Unknown Venipuncture / Unknown 11/24/2024 9:52 AM EDT 11/24/2024 11:01 AM EDT us Torrey Kwok MD LAB BLOOD ORDERABLES Final Resul t [facility] [address] [place] [address], * (ABNORMAL) Basic metabolic panel (11/24/2024 9:52 AM EDT) Sodium 138 133 - 145 mmol/L LAB CHEMISTRY METHOD 11/24/2024 4:19 PM [facility] Potassium 3.9 3.5 - 5.5 mmol/L LAB CHEMISTRY METHOD 11/24/2024 4:19 PM [facility] Chloride 103 96 - 110 mmol/L LAB CHEMISTRY METHOD 11/24/2024 4:19 PM [facility] CO2 31 21 - 32 mmol/L LAB CHEMISTRY METHOD 11/24/2024 4:19 PM [facility] Anion Gap 4 3 - 11 LAB CHEMISTRY METHOD 11/24/2024 4:19 PM [facility] Glucose 255(H) 70 - 100 mg/dL LAB CHEMISTRY METHOD 11/24/2024 4:19 PM [facility] BUN 28(H) 5 - 25 mg/dL LAB CHEMISTRY METHOD 11/24/2024 4:19 PM EDT [facility] Creatinine 1.24(H) 0.50 - 1.10 mg/dL LAB CHEMISTRY METHOD 11/24/2024 4:19 PM EDT [facility] eGFR 42(L) >=60 mL/min/1. 73m2 LAB CHEMISTRY METHOD 11/24/2024 4:19 PM EDT [facility] Comment:Calculation based on the Chronic Kidney Disease Epidemiology Collaboration (CKD-EPI) equation refit without adjustment for race. BUN/Creatinine Ratio 22.6 LAB CHEMISTRY METHOD 11/24/2024 4:19 PM EDT [facility] Calcium 9.0 8.5 - 10.5 mg/dL LAB CHEMISTRY METHOD 11/24/2024 4:19 PM EDT [facility] Blood Venous blood specimen / Unknown Venipuncture / Unknown 11/24/2024 9:52 AM EDT 11/24/2024 11:01 AM EDT us Torrey Kwok MD LAB BLOOD ORDERABLES Final Resul t [facility] [address] [place] [address], documented in this encounter Visit Diagnoses Diagnosis 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, CMS/HCC V28) Essential (primary) hypertension Unspecified essential hypertension Heart failure, unspecified (CMS/HCC V24, CMS/HCC V28) Heart failure, unspecified 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
--- OUTSIDE RECORDS SUMMARY | 2025-02-12 22:26 | XMS_ITS | Encounter Summary ---
Author Organization [facility] Address [address] [place] [address] Care Team Providers Care Compliance Reviewer Name Role Phone Torrey Kwok MD Primary Care Provider [phone] Encounter Details Date Type Department Care Team (Late st Contact Info) Description 10/28/2024 Lab Requisition [facility] - Main Lab 299 [facility] [place] [address] Torrey Kwok MD [address] [place], [place] [phone] Frequency of micturition Social History Tobacco Use [...] frequency documented in this encounter Care Teams Compliance Reviewer Relationship Specialty Start Date End Date Torrey Kwok MD [address] [place], [place] [phone] PCP - General Geriatric Medicine 04/25/24 documented as of this encounter
--- OUTSIDE RECORDS SUMMARY | 2025-02-12 22:26 | XMS_ITS | Encounter Summary ---
Author Organization [facility] Address [address] [place] [phone] Care Team Providers Care Nurse First Aid Name Role Phone Torrey Kwok MD Primary Care Provider [phone] Encounter Details Date Type Department Care Team (Late st Contact Info) Description 2024 Lab Requisition [facility] - Main Lab 299 [facility] [place] [address] Torrey Kwok MD [address] [place], [place] [id number] Type 2 diabetes mellitus with diabetic chronic [...] V28) documented in this encounter Care Teams Nurse First Aid Relationship Specialty Start Date End Date Torrey Kwok MD [address] [place] [address] PCP - General Geriatric Medicine 04/25/24 documented as of this encounter
--- OUTSIDE RECORDS SUMMARY | 2025-02-12 22:26 | XMS_ITS | Encounter Summary ---
Author Organization [facility] Address [address] [place] [phone] Care Team Providers Care Data Coordinator Name Role Phone Torrey Kwok MD Primary Care Provider [phone] Encounter Details Date Type Department Care Team (Late st Contact Info) Description 06/07/2024 Lab Requisition [facility] - Main Lab 299 [facility] [place] [address] Torrey Kwok MD [address] [place], [place] [phone] Heart failure, unspecified (CMS/HCC V24, CMS/HCC V28); [...] diabetic chronic kidney disease ([facility]) Chronic kidney disease, stage 3 unspecified (CMS/HCC) Vitamin D deficiency, unspecified Essential (primary) hypertension documented in this encounter Results * Vitamin D 25 hydroxy (06/07/2024 6:36 AM EST) Vit D, 25-Hydroxy 41.4 30.0 - 80.0 ng/mL LAB CHEMISTRY METHOD 06/07/2024 1:29 PM EST [facility] Blood Venous blood specimen / Unknown Venipuncture / Unknown 06/07/2024 6:36 AM EST 06/07/2024 9:58 AM EST us Torrey Kwok MD LAB BLOOD ORDERABLES Final Resul t Performing Organization Address City/[facility]/ZIP Co de Phone Number [facility] [address] [place] [address], [place] [phone] * Folate (06/07/2024 6:36 AM EST) Folate 9.8 2.8 - 17.0 ng/ml LAB CHEMISTRY METHOD 06/07/2024 12:13 PM EST [facility] Blood Venous blood specimen / Unknown Venipuncture / Unknown 06/07/2024 6:36 AM EST 06/07/2024 9:58 AM EST us Torrey Kwok MD LAB BLOOD ORDERABLES Final Resul t [facility] [address] [place] [address], [place] [phone] * (ABNORMAL) Vitamin B12 (06/07/2024 6:36 AM EST) Vitamin B-12 1,072(H) 250 - 900 pcg/mL LAB CHEMISTRY METHOD 06/07/2024 12:13 PM EST [facility] Blood Venous blood specimen / Unknown Venipuncture / Unknown 06/07/2024 6:36 AM EST 06/07/2024 9:58 AM EST Torrey Kwok MD LAB BLOOD ORDERABLES Final Resul t [facility] [address] [place] [address], documented in this encounter Visit Diagnoses Diagnosis Heart failure, unspecified ([facility] V24, [facility] V28) Heart failure, unspecified Type 2 diabetes mellitus with diabetic chronic kidney disease ([facility] V24, [facility] V28) Chronic kidney disease, stage 3 unspecified ([facility] V24, [facility] V28) Vitamin D deficiency, unspecified Essential (primary) hypertension Unspecified essential hypertension documented in this encounter Additional Health Concerns Infection Onset Date Last Indicated Resolved Time Respiratory Rule-Out 07/12/2024 07/11/2024 025 11:25 AM EDT documented as of this encounter Care Teams Data Coordinator Relationship Specialty Start Date End Date Torrey Kwok MD [address] [place] [address] [address] [place] [address] PCP - General Geriatric Medicine 04/25/24 documented as of this encounter
--- OUTSIDE RECORDS SUMMARY | 2025-02-12 22:26 | XMS_ITS | Encounter Summary ---
Author Organization [facility] Address [address] [place] [phone] Care Team Providers Care Household Manager Name Role Phone Torrey Kwok MD Primary Care Provider [phone] Encounter Details Date Type Department Care Team (Late st Contact Info) Description 08/08/2024 Lab Requisition [facility] - Main Lab 299 [facility] [place] [address] Torrey Kwok MD [address] [place], [place] [phone] Type 2 diabetes mellitus with diabetic chronic [...] diabetes mellitus with diabetic chronic kidney disease ([facility] V24, [facility] V28) Essential (primary) hypertension Heart failure, unspecified ([facility] V24, [facility] V28) 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 ([facility] V24, [facility] V28) documented in this encounter Results * (ABNORMAL) Basic metabolic panel (08/11/2024 5:15 AM EDT) Pathologist [facility] Sodium 137 133 - 145 mmol/L LAB CHEMISTRY METHOD 08/11/2024 2:34 PM [facility] Potassium 4.0 3.5 - 5.5 mmol/L LAB CHEMISTRY METHOD 08/11/2024 2:34 PM [facility] Chloride 99 96 - 110 mmol/L LAB CHEMISTRY METHOD 08/11/2024 2:34 PM [facility] CO2 30 21 - 32 mmol/L LAB CHEMISTRY METHOD 08/11/2024 2:34 PM [facility] Anion Gap 8 3 - 11 LAB CHEMISTRY METHOD 08/11/2024 2:34 PM [facility] Glucose 259(H) 70 - 100 mg/dL LAB CHEMISTRY METHOD 08/11/2024 2:34 PM [facility] BUN 41(H) 5 - 25 mg/dL LAB CHEMISTRY METHOD 08/11/2024 2:34 PM [facility] Creatinine 1.54(H) 0.50 - 1.10 mg/dL LAB CHEMISTRY METHOD 08/11/2024 2:34 PM [facility] eGFR 33(L) >=60 mL/min/1. 73m2 LAB CHEMISTRY METHOD 08/11/2024 2:34 PM [facility] Comment:Calculation based on the Chronic Kidney Disease Epidemiology Collaboration (CKD-EPI) equation refit without adjustment for race. BUN/Creatinine Ratio 26.6 LAB CHEMISTRY METHOD 08/11/2024 2:34 PM EDT [facility] Calcium 8.5 8.5 - 10.5 mg/dL LAB CHEMISTRY METHOD 08/11/2024 2:34 PM T [facility] Blood Venous blood specimen / Unknown Venipuncture / Unknown 08/11/2024 5:15 AM EDT 08/11/2024 12:58 PM EDT us Torrey Kwok MD LAB BLOOD ORDERABLES Final Resul t [facility] [address] [place] [address], * (ABNORMAL) Complete blood count (08/11/2024 5:15 AM EDT) WBC 6.1 4.8 - 10.8 K/mcL LAB HEMETOLOGY METHOD 08/11/2024 2:05 PM [facility] RBC 3.50(L) 3.80 - 4.80 M/mcL LAB HEMETOLOGY METHOD 08/11/2024 2:05 PM [facility] Hemoglobin 11.0(L) 11.5 - 16.0 g/dL LAB HEMETOLOGY METHOD 08/11/2024 2:05 PM [facility] Hematocrit 35.3 35.0 - 47.0 % LAB HEMETOLOGY METHOD 08/11/2024 2:05 PM [facility] MCV 101.4(H) 79.0 - 98.0 FL LAB HEMETOLOGY METHOD 08/11/2024 2:05 PM [facility] MCH 31.6 27.0 - 32.0 pcg LAB HEMETOLOGY METHOD 08/11/2024 2:05 PM [facility] MCHC 31.2(L) 32.0 - 37.0 g/dL LAB HEMETOLOGY METHOD 08/11/2024 2:05 PM EDT [facility] RDW 16.1(H) 11.0 - 15.0 % LAB HEMETOLOGY METHOD 08/11/2024 2:05 PM EDT [facility] Platelets 261 130 - 400 K/mcL LAB HEMETOLOGY METHOD 08/11/2024 2:05 PM EDT [facility] MPV 10.8 7.0 - 11.0 FL LAB HEMETOLOGY METHOD 08/11/2024 2:05 PM EDT [facility] NRBC 0.0 <1.0 % LAB HEMETOLOGY METHOD 08/11/2024 2:05 PM EDT [facility] NRBC Absolute 0.00 <0.10 K/mcL LAB HEMETOLOGY METHOD 08/11/2024 2:05 PM EDT [facility] Blood Venous blood specimen / Unknown Venipuncture / Unknown 08/11/2024 5:15 AM EDT 08/11/2024 12:58 PM EDT Torrey Kwok MD LAB BLOOD ORDERABLES Final Resul t [facility] [address] [place] [address], documented in this encounter Visit Diagnoses Diagnosis 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, CMS/HCC V28) Essential (primary) hypertension Unspecified essential hypertension Heart failure, unspecified (CMS/HCC V24, CMS/HCC V28) Heart failure, unspecified 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
--- OUTSIDE RECORDS SUMMARY | 2025-02-12 22:26 | XMS_ITS | Encounter Summary ---
Author Organization [facility] Address [address] [place] [phone] Care Team Providers Care Button Sewer Name Role Phone Torrey Kwok MD Primary Care Provider Encounter Details Date Type Department Care Team (Late st Contact Info) Description 08/22/2024 Lab Requisition [facility] - Main Lab 299 [facility] [place] [address] Torrey Kwok MD [address] [place], [place] [phone] Chronic kidney disease, stage 3 unspecified (CMS/HCC [...] LAB CHEMISTRY METHOD 08/22/2024 4:28 PM EDT [facility] Blood Venous blood specimen / Unknown Venipuncture / Unknown 08/22/2024 5:24 AM EDT 08/22/2024 9:20 AM EDT us Torrey Kwok MD LAB BLOOD ORDERABLES Final Resul t Performing Organization Address City/[facility]/ZIP Co de Phone Number [facility] [address] [place] [address], [place] [phone] * (ABNORMAL) Thyroid stimulating hormone (08/22/2024 5:24 AM EDT) Pathologist [facility] TSH 27.27(H) 0.40 - 4.00 mcIU/mL LAB CHEMISTRY METHOD 08/22/2024 11:34 AM EDT [facility] Blood Venous blood specimen / Unknown Venipuncture / Unknown 08/22/2024 5:24 AM EDT 08/22/2024 9:20 AM EDT us Torrey Kwok MD LAB BLOOD ORDERABLES Final Resul t Performing Organization Address City/[facility]/ZIP Co de Phone Number [facility] [address] [place] [address], [place] [phone] * (ABNORMAL) Basic metabolic panel (08/22/2024 5:24 AM EDT) [facility] Sodium 138 133 - 145 mmol/L LAB CHEMISTRY METHOD 08/22/2024 10:34 AM EDT [facility] Potassium 4.0 3.5 - 5.5 mmol/L LAB CHEMISTRY METHOD 08/22/2024 10:34 AM EDT [facility] Chloride 104 96 - 110 mmol/L LAB CHEMISTRY METHOD 08/22/2024 10:34 AM [facility] CO2 26 21 - 32 mmol/L LAB CHEMISTRY METHOD 08/22/2024 10:34 AM [facility] Anion Gap 8 3 - 11 LAB CHEMISTRY METHOD 08/22/2024 10:34 AM [facility] Glucose 162(H) 70 - 100 mg/dL LAB CHEMISTRY METHOD 08/22/2024 10:34 AM [facility] BUN 42(H) 5 - 25 mg/dL LAB CHEMISTRY METHOD 08/22/2024 10:34 AM [facility] Creatinine 1.17(H) 0.50 - 1.10 mg/dL LAB CHEMISTRY METHOD 08/22/2024 10:34 AM [facility] eGFR 45(L) >=60 mL/min/1. 73m2 LAB CHEMISTRY METHOD 08/22/2024 10:34 AM [facility] Comment:Calculation based on the Chronic Kidney Disease Epidemiology Collaboration (CKD-EPI) equation refit without adjustment for race. BUN/Creatinine Ratio 35.9 LAB CHEMISTRY METHOD 08/22/2024 10:34 AM [facility] Calcium 8.6 8.5 - 10.5 mg/dL LAB CHEMISTRY METHOD 08/22/2024 10:34 AM [facility] Blood Venous blood specimen / Unknown Venipuncture / Unknown 08/22/2024 5:24 AM EDT 08/22/2024 9:20 AM EDT us Torrey Kwok MD LAB BLOOD ORDERABLES Final Resul t [facility] [address] [place] [address], documented in this encounter Visit Diagnoses Diagnosis Chronic kidney disease, stage 3 unspecified (CMS/HCC V24, CMS/HCC V28) Hypothyroidism, unspecified documented in this encounter Care Teams Button Sewer Relationship Specialty Start Date End Date Torrey Kwok MD [address] [place] [address] [address] [place] [address] PCP - General Geriatric Medicine 04/25/24 documented as of this encounter
--- OUTSIDE RECORDS SUMMARY | 2025-02-12 22:26 | XMS_ITS | Encounter Summary ---
Author Organization [facility] Address [address] [place] [phone] Care Team Providers Care Clinical Massage Therapist Name Role Phone Torrey Kwok MD Primary Care Provider [phone] Encounter Details Date Type Department Care Team (Late st Contact Info) Description 08/01/2024 Lab Requisition [facility] - Main Lab 299 [facility] [place] [address] Torrey Kwok MD [address] [place], [place] [phone] Type 2 diabetes mellitus with diabetic chronic [...] diabetes mellitus with diabetic chronic kidney disease ([facility] V24, [facility] V28) Essential (primary) hypertension Heart failure, unspecified ([facility] V24, [facility] V28) 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 ([facility] V24, [facility] V28) documented in this encounter Results * (ABNORMAL) Basic metabolic panel (08/04/2024 5:22 AM EDT) Sodium 134 133 - 145 mmol/L LAB CHEMISTRY METHOD 08/04/2024 7:05 PM [facility] Potassium 4.1 3.5 - 5.5 mmol/L LAB CHEMISTRY METHOD 08/04/2024 7:05 PM [facility] Chloride 101 96 - 110 mmol/L LAB CHEMISTRY METHOD 08/04/2024 7:05 PM [facility] CO2 26 21 - 32 mmol/L LAB CHEMISTRY METHOD 08/04/2024 7:05 PM [facility] Anion Gap 7 3 - 11 LAB CHEMISTRY METHOD 08/04/2024 7:05 PM [facility] Glucose 158(H) 70 - 100 mg/dL LAB CHEMISTRY METHOD 08/04/2024 7:05 PM [facility] BUN 31(H) 5 - 25 mg/dL LAB CHEMISTRY METHOD 08/04/2024 7:05 PM [facility] Creatinine 1.08 0.50 - 1.10 mg/dL LAB CHEMISTRY METHOD 08/04/2024 7:05 PM [facility] eGFR 50(L) >=60 mL/min/1. 73m2 LAB CHEMISTRY METHOD 08/04/2024 7:05 PM [facility] Comment:Calculation based on the Chronic Kidney Disease Epidemiology Collaboration (CKD-EPI) equation refit without adjustment for race. BUN/Creatinine Ratio 28.7 LAB CHEMISTRY METHOD 08/04/2024 7:05 PM EDT [facility] Calcium 8.6 8.5 - 10.5 mg/dL LAB CHEMISTRY METHOD 08/04/2024 7:05 PM EDT [facility] Blood Venous blood specimen / Unknown Venipuncture / Unknown 08/04/2024 5:22 AM EDT 08/04/2024 11:34 AM EDT us Torrey Kwok MD LAB BLOOD ORDERABLES Final Resul t [facility] [address] [place] [address], * (ABNORMAL) Complete blood count (08/04/2024 5:22 AM EDT) WBC 5.6 4.8 - 10.8 K/mcL LAB HEMETOLOGY METHOD 08/04/2024 12:48 PM EDT [facility] RBC 3.50(L) 3.80 - 4.80 M/mcL LAB HEMETOLOGY METHOD 08/04[facility]24 [facility] Hemoglobin 11.0(L) 11.5 - 16.0 g/dL LAB HEMETOLOGY METHOD 08/04/2024 12:48 PM [facility] Hematocrit 34.4(L) 35.0 - 47.0 % LAB HEMETOLOGY METHOD 08/04/2024 12:48 PM EDT [facility] MCV 98.6(H) 79.0 - 98.0 FL LAB HEMETOLOGY METHOD 08/04/2024 12:48 PM EDT [facility] MCH 31.5 27.0 - 32.0 pcg LAB HEMETOLOGY METHOD 08/04/2024 12:48 PM [facility] MCHC 32.0 32.0 - 37.0 g/dL LAB HEMETOLOGY METHOD 08/04/2024 12:48 PM EDT [facility] RDW 16.2(H) 11.0 - 15.0 % LAB HEMETOLOGY METHOD 08/04/2024 12:48 PM EDT [facility] Platelets 301 130 - 400 K/mcL LAB HEMETOLOGY METHOD 08/04/2024 12:48 PM EDT [facility] MPV 10.7 7.0 - 11.0 FL LAB HEMETOLOGY METHOD 08/04/2024 12:48 PM EDT [facility] NRBC 0.0 <1.0 % LAB HEMETOLOGY METHOD 08/04/2024 12:48 PM EDT [facility] NRBC Absolute 0.00 <0.10 K/mcL LAB HEMETOLOGY METHOD 08/04/2024 12:48 PM EDT [facility] Blood Venous blood specimen / Unknown Venipuncture / Unknown 08/04/2024 5:22 AM EDT 08/04/2024 11:18 AM EDT us Torrey Kwok MD LAB BLOOD ORDERABLES Final Resul t [facility] [address] [place] [address], documented in this encounter Visit Diagnoses Diagnosis 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, CMS/HCC V28) Essential (primary) hypertension Unspecified essential hypertension Heart failure, unspecified (CMS/HCC V24, CMS/HCC V28) Heart failure, unspecified 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
--- OUTSIDE RECORDS SUMMARY | 2025-02-12 22:26 | XMS_ITS | Encounter Summary ---
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, CMS/HCC V28); Essential (primary) hypertension; Heart failure, unspecified (CMS/HCC V24, CMS/HCC V28); 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 V24, CMS/HCC V28); Hypothyroidism, unspecified Social [...] Date/Time Associated Diagnosis Comments THYROID STIMULATING HORMONE WITH REFLEX TO FREE T4 AND FREE T3 Routine 02/09/2025 5:08 AM EST 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, CMS/HCC V28) Essential (primary) hypertension Heart failure, unspecified (CMS/HCC V24, CMS/HCC V28) 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 V24, CMS/[facility] V28) Hypothyroidism, unspecified FREE THYROXINE WITH REFLEX TO FREE TRIIODOTHYRONINE Routine 02/09/2025 5:08 AM EST 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, CMS/HCC V28) Essential (primary) hypertension Heart failure, unspecified (CMS/HCC V24, CMS/HCC V28) 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 V24, CMS/HCC V28) Hypothyroidism, unspecified COMPLETE BLOOD COUNT Routine 02/09/2025 5:08 AM EST 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, CMS/HCC V28) Essential (primary) hypertension Heart failure, unspecified (CMS/HCC V24, CMS/HCC V28) 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 V24, CMS/HCC V28) Hypothyroidism, unspecified TRIIODOTHYRONINE FREE Routine 02/09/2025 5:08 AM EST [...] edema (CMS/HCC V24, CMS/HCC V28) Hypothyroidism, unspecified documented in this encounter Results * (ABNORMAL) Triiodothyronine free (02/09/2025 5:08 AM EST) T3, Free 143(L) 230 - 420 pcg/dL LAB CHEMISTRY METHOD 02/09/2025 4:13 PM EST [facility] Blood Venous blood specimen / Unknown Venipuncture / Unknown 02/09/2025 5:08 AM EST 02/09/2025 10:54 AM EST us Torrey Kwok MD LAB BLOOD ORDERABLES Final Resul t Performing Organization Address City/[facility]/ZIP Co de Phone Number [facility] [address] [place] [address], [place] [phone] * Free thyroxine with reflex to free triiodothyronine (02/09/2025 5:08 AM EST) Free T4 1.23 0.70 - 1.80 ng/dL LAB CHEMISTRY METHOD 02/09/2025 2:42 PM EST [facility] Blood Venous blood specimen / Unknown Venipuncture / Unknown 02/09/2025 5:08 AM EST 02/09/2025 10:54 AM EST us Torrey Kwok MD LAB BLOOD ORDERABLES Final Resul t Performing Organization Address [facility] Co de Phone Number [facility] [address] [place] [address], [place] [phone] * (ABNORMAL) Thyroid stimulating hormone with reflex to free t4 and free t3 (02/09/2025 5:08 AM EST) TSH 14.02(H) 0.40 - 4.00 mcIU/mL LAB CHEMISTRY METHOD 02/09/2025 2:06 PM EST [facility] Blood Venous blood specimen / Unknown Venipuncture / Unknown 02/09/2025 5:08 AM EST 02/09/2025 10:54 AM EST us Torrey Kwok MD LAB BLOOD ORDERABLES Final Resul t Performing Organization Address City/[facility]/ZIP Co de Phone Number [facility] [address] [place] [address], [place] [phone] * (ABNORMAL) Complete blood count (02/09/2025 5:08 AM EST) [facility] WBC 6.8 4.8 - 10.8 K/mcL LAB HEMETOLOGY METHOD 02/09/2025 11:44 AM [facility] RBC 3.20(L) 3.80 - 4.80 M/mcL LAB HEMETOLOGY METHOD 02/09/2025 11:44 AM [facility] Hemoglobin 9.7(L) 11.5 - 16.0 g/dL LAB HEMETOLOGY METHOD 02/09/2025 11:44 AM [facility] Hematocrit 30.2(L) 35.0 - 47.0 % LAB HEMETOLOGY METHOD 02/09/2025 11:44 AM [facility] MCV 95.6 79.0 - 98.0 FL LAB HEMETOLOGY METHOD 02/09/2025 11:44 AM [facility] MCH 30.7 27.0 - 32.0 pcg LAB HEMETOLOGY METHOD 02/09/2025 11:44 AM [facility] MCHC 32.1 32.0 - 37.0 g/dL LAB HEMETOLOGY METHOD 02/09/2025 11:44 AM [facility] RDW 16.4(H) 11.0 - 15.0 % LAB HEMETOLOGY METHOD 02/09/2025 11:44 AM [facility] Platelets 265 130 - 400 K/mcL LAB HEMETOLOGY METHOD 02/09/2025 11:44 AM [facility] MPV 11.1(H) 7.0 - 11.0 FL LAB HEMETOLOGY METHOD 02/09/2025 11:44 AM [facility] NRBC 0.0 <1.0 % LAB HEMETOLOGY METHOD 02/09/2025 11:44 AM [facility] NRBC Absolute 0.00 <0.10 K/mcL LAB HEMETOLOGY METHOD 02/09/2025 11:44 AM [facility] Blood Venous blood specimen / Unknown Venipuncture / Unknown 02/09/2025 5:08 AM EST 02/09/2025 10:54 AM EST us Torrey Kwok MD LAB BLOOD ORDERABLES Final Resul t [facility] [address] [place] [address], [place] [phone] * (ABNORMAL) Basic metabolic panel (02/09/2025 5:08 AM EST) Sodium 134 133 - 145 mmol/L LAB CHEMISTRY METHOD 02/09/2025 12:19 PM [facility] Potassium 4.1 3.5 - 5.5 mmol/L LAB CHEMISTRY METHOD 02/09/2025 12:19 PM [facility] Chloride 99 96 - 110 mmol/L LAB CHEMISTRY METHOD 02/09/2025 12:19 PM [facility] CO2 26 21 - 32 mmol/L LAB CHEMISTRY METHOD 02/09/2025 12:19 PM [facility] Anion Gap 9 3 - 11 LAB CHEMISTRY METHOD 02/09/2025 12:19 PM [facility] Glucose 258(H) 70 - 100 mg/dL LAB CHEMISTRY METHOD 02/09/2025 12:19 PM [facility] BUN 40(H) 5 - 25 mg/dL LAB CHEMISTRY METHOD 02/09/2025 12:19 PM [facility] Creatinine 1.63(H) 0.50 - 1.10 mg/dL LAB CHEMISTRY METHOD 02/09/2025 12:19 PM [facility] eGFR 30(L) >=60 mL/min/1. 73m2 LAB CHEMISTRY METHOD 02/09/2025 12:19 PM [facility] Comment:Calculation based on the Chronic Kidney Disease Epidemiology Collaboration (CKD-EPI) equation refit without adjustment for race. 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
--- OUTSIDE RECORDS SUMMARY | 2025-02-12 22:26 | XMS_ITS | Encounter Summary ---
Author Organization [facility] Address [address] [place] [address] Care Team Providers Care Hat Finishing Materials Preparer Name Role Phone Torrey Kwok MD Primary Care Provider [phone] Encounter Details Date Type Department Care Team (Late st Contact Info) Description 05/06/2024 Lab Requisition [facility] [address] [place] [address] Torrey Kwok MD [address] [place], [place] [phone] Type 2 diabetes mellitus without complications (CMS/HCC [...] LAB CHEMISTRY METHOD 05/07/2024 1:13 PM EST [facility] Potassium 4.1 3.5 - 5.5 mmol/L LAB CHEMISTRY METHOD 05/07/2024 1:13 PM [facility] Chloride 96 96 - 110 mmol/L LAB CHEMISTRY METHOD 05/07/2024 1:13 PM [facility] CO2 26 21 - 32 mmol/L LAB CHEMISTRY METHOD 05/07/2024 1:13 PM [facility] Anion Gap 8 3 - 11 LAB CHEMISTRY METHOD 05/07/2024 1:13 PM [facility] Glucose 271(H) 70 - 100 mg/dL LAB CHEMISTRY METHOD 05/07/2024 1:13 PM [facility] BUN 21 5 - 25 mg/dL LAB CHEMISTRY METHOD 05/07/2024 1:13 PM [facility] Creatinine 0.98 0.50 - 1.10 mg/dL LAB CHEMISTRY METHOD 05/07/2024 1:13 PM [facility] eGFR 56(L) >=60 mL/min/1. 73m2 LAB CHEMISTRY METHOD 05/07/2024 1:13 PM [facility] Comment:Calculation based on the Chronic Kidney Disease Epidemiology Collaboration (CKD-EPI) equation refit without adjustment for race. BUN/Creatinine Ratio 21.4 LAB CHEMISTRY METHOD 05/07/2024 1:13 PM [facility] Calcium 9.0 8.5 - 10.5 mg/dL LAB CHEMISTRY METHOD 05/07/2024 1:13 PM [facility] Blood Venous blood specimen / Unknown Venipuncture / Unknown 05/07/2024 8:42 AM EST 05/07/2024 11:51 AM EST us Torrey Kwok MD LAB BLOOD ORDERABLES Final Resul t [facility] [address] [place] [address], * (ABNORMAL) Complete blood count (05/07/2024 8:42 AM EST) [facility] WBC 9.1 4.8 - 10.8 K/mcL LAB HEMETOLOGY METHOD 05/07/2024 12:40 PM [facility] RBC 3.90 3.80 - 4.80 M/mcL LAB HEMETOLOGY METHOD 05/07/2024 12:40 PM [facility] Hemoglobin 12.4 11.5 - 16.0 g/dL LAB HEMETOLOGY METHOD 05/07/2024 12:40 PM [facility] Hematocrit 38.7 35.0 - 47.0 % LAB HEMETOLOGY METHOD 05/07/2024 12:40 PM [facility] MCV 99.2(H) 79.0 - 98.0 FL LAB HEMETOLOGY METHOD 05/07/2024 12:40 PM [facility] MCH 31.8 27.0 - 32.0 pcg LAB HEMETOLOGY METHOD 05/07/2024 12:40 PM [facility] MCHC 32.0 32.0 - 37.0 g/dL LAB HEMETOLOGY METHOD 05/07/2024 12:40 PM [facility] RDW 19.9(H) 11.0 - 15.0 % LAB HEMETOLOGY METHOD 05/07/2024 12:40 PM [facility] Platelets 384 130 - 400 K/mcL LAB HEMETOLOGY METHOD 05/07/2024 12:40 PM [facility] MPV 10.7 7.0 - 11.0 FL LAB HEMETOLOGY METHOD 05/07/2024 12:40 PM [facility] NRBC 0.0 <1.0 % LAB HEMETOLOGY METHOD 05/07/2024 12:40 PM [facility] NRBC Absolute 0.00 <0.10 K/mcL LAB HEMETOLOGY METHOD 05/07/2024 12:40 PM [facility] Blood Venous blood specimen / Unknown Venipuncture / Unknown 05/07/2024 8:42 AM EST 05/07/2024 11:51 AM EST Torrey Kwok MD LAB BLOOD ORDERABLES Final Resul t [facility] [address] [place] [address], documented in this encounter Visit Diagnoses Diagnosis Type 2 diabetes mellitus without complications (CMS/HCC V24, CMS/HCC V28) documented in this encounter Additional Health Concerns Infection Onset Date Last Indicated Resolved Time Respiratory Rule-Out 07/12/2024 07/11/2024 025 11:25 AM EDT documented as of this encounter Care Teams Hat Finishing Materials Preparer Relationship Specialty Start Date End Date Torrey Kwok MD [address] [place] [address] [address] [place] [address] PCP - General Geriatric Medicine 04/25/24 documented as of this encounter
--- OUTSIDE RECORDS SUMMARY | 2025-02-12 22:26 | XMS_ITS | Encounter Summary ---
Author Organization [facility] Address [address] [place] [phone] Care Team Providers Care Health Administration Teacher Name Role Phone Torrey Kwok MD Primary Care Provider [phone] Encounter Details Date Type Department Care Team (Late st Contact Info) Description 05/09/2024 Lab Requisition [facility] - Main Lab 299 [facility] [place] [address] Torrey Kwok MD [address] [place], [place] [phone] Type 2 diabetes mellitus with unspecified diabetic [...] diabetes mellitus with diabetic chronic kidney disease ([facility]/HCC) documented in this encounter Results * [...] Final Resul t [facility] [address] [place] [address], [place] [phone] * (ABNORMAL) Complete blood count (05/12/2024 5:48 AM EST) Pathologist [facility] WBC 7.5 4.8 - 10.8 K/mcL LAB [...] LAB HEMETOLOGY METHOD 05/12/2024 12:44 PM EST [facility] MPV 10.3 7.0 - 11.0 FL LAB HEMETOLOGY METHOD 05/12/2024 12:44 PM EST [facility] NRBC 0.0 <1.0 % LAB HEMETOLOGY METHOD 05/12/2024 12:44 PM EST [facility] NRBC Absolute 0.00 <0.10 K/mcL LAB HEMETOLOGY METHOD 05/12/2024 12:44 PM EST [facility] Blood Venous blood specimen / Unknown 05/12/2024 5:48 AM EST 05/12/2024 11:25 AM EST Torrey Kwok MD LAB BLOOD ORDERABLES Final Resul t [facility] [address] [place] [address], documented in this encounter Visit Diagnoses Diagnosis [...] documented as of this encounter Care Teams Health Administration Teacher Relationship Specialty Start Date End Date Torrey Kwok MD [address] [place] [address] [address] [place] [address] PCP - General Geriatric Medicine 04/25/24 documented as of this encounter
--- OUTSIDE RECORDS SUMMARY | 2025-02-12 22:26 | XMS_ITS | Encounter Summary ---
Author Organization [facility] Address [address] [place] [phone] Care Team Providers Care Salesperson Flying Squad Name Role Phone Torrey Kwok MD Primary Care Provider [phone] Encounter Details Date Type Department Care Team (Late st Contact Info) Description 05/09/2024 Lab Requisition [facility] - Main Lab [address] [facility] [place] [address] Torrey Kwok MD [address] [place], [place] [phone] Type 2 diabetes mellitus with unspecified diabetic [...] documented as of this encounter Care Teams Salesperson Flying Squad Relationship Specialty Start Date End Date Torrey Kwok MD [address] [place] [address] [address] [place] [address] PCP - General Geriatric Medicine 04/25/24 documented as of this encounter
--- OUTSIDE RECORDS SUMMARY | 2025-02-12 22:26 | XMS_ITS | Encounter Summary ---
Author Organization [facility] Address [address] [place] [phone] Care Team Providers Care Refrigeration Mechanic Helper Name Role Phone Torrey Kwok MD Primary Care Provider [phone] Encounter Details Date Type Department Care Team (Late st Contact Info) Description 01/10/2025 Lab Requisition [facility] - Main Lab 299 [facility] [place] [address] Torrey Kwok MD [address] [place], [place] [phone] Type 2 diabetes mellitus with diabetic chronic [...] V28) documented in this encounter Care Teams Refrigeration Mechanic Helper Relationship Specialty Start Date End Date Torrey Kwok MD [address] [place] [address] PCP - General Geriatric Medicine 04/25/24 documented as of this encounter
--- OUTSIDE RECORDS SUMMARY | 2025-02-12 22:26 | XMS_ITS | Encounter Summary ---
Author Organization [facility] Address [address] [place] [address] Care Team Providers Care Tubing Machine Tender Name Role Phone Torrey Kwok MD Primary Care Provider Encounter Details Date Type Department Care Team (Late st Contact Info) Description 08/31/2024 Lab Requisition [facility] - Main Lab 299 [facility] [place] [address] Torrey Kwok MD [address] [place], [place] [phone] Type 2 diabetes mellitus with diabetic chronic [...] mmol/L LAB CHEMISTRY METHOD 09/02/2024 12:54 PM [facility] Potassium 4.6 3.5 - 5.5 mmol/L LAB CHEMISTRY METHOD 09/02/2024 12:54 PM [facility] Chloride 102 96 - 110 mmol/L LAB CHEMISTRY METHOD 09/02/2024 12:54 PM [facility] CO2 19(L) 21 - 32 mmol/L LAB CHEMISTRY METHOD 09/02/2024 12:54 PM [facility] Anion Gap 12(H) 3 - 11 LAB CHEMISTRY METHOD 09/02/2024 12:54 PM [facility] Glucose 348(H) 70 - 100 mg/dL LAB CHEMISTRY METHOD 09/02/2024 12:54 PM [facility] BUN 27(H) 5 - 25 mg/dL LAB CHEMISTRY METHOD 09/02/2024 12:54 PM [facility] Creatinine 1.07 0.50 - 1.10 mg/dL LAB CHEMISTRY METHOD 09/02/2024 12:54 PM [facility] eGFR 50(L) >=60 mL/min/1. 73m2 LAB CHEMISTRY METHOD 09/02/2024 12:54 PM [facility] Comment:Calculation based on the Chronic Kidney Disease Epidemiology Collaboration (CKD-EPI) equation refit without adjustment for race. BUN/Creatinine Ratio 25.2 LAB CHEMISTRY METHOD 09/02/2024 12:54 PM [facility] Calcium 8.8 8.5 - 10.5 mg/dL LAB CHEMISTRY METHOD 09/02/2024 12:54 PM [facility] Blood Venous blood specimen / Unknown Venipuncture / Unknown 09/02/2024 7:40 AM EDT 09/02/2024 10:50 AM EDT Torrey Kwok MD LAB BLOOD ORDERABLES Final Resul t [facility] [address] [place] [address], * (ABNORMAL) Complete blood count (09/02/2024 7:40 AM EDT) Pathologist [facility] WBC 8.8 4.8 - 10.8 K/mcL LAB HEMETOLOGY METHOD 09/02/2024 11:26 AM EDT [facility] RBC 3.60(L) 3.80 - 4.80 M/mcL LAB HEMETOLOGY METHOD 09/02/2024 11:26 AM EDT [facility] Hemoglobin 11.6 11.5 - 16.0 g/dL LAB HEMETOLOGY METHOD 09/02/2024 11:26 AM EDT [facility] Hematocrit 37.5 35.0 - 47.0 % LAB HEMETOLOGY METHOD 09/02/2024 11:26 AM EDT [facility] MCV 103.3(H) 79.0 - 98.0 FL LAB HEMETOLOGY METHOD 09/02/2024 11:26 AM EDT [facility] MCH 32.0 27.0 - 32.0 pcg LAB HEMETOLOGY METHOD 09/02/2024 11:26 AM EDT [facility] MCHC 30.9(L) 32.0 - 37.0 g/dL LAB HEMETOLOGY METHOD 09/02/2024 11:26 AM EDT [facility] RDW 16.5(H) 11.0 - 15.0 % LAB HEMETOLOGY METHOD [facility]02[facility]24 [facility] Platelets 261 130 - 400 K/mcL LAB HEMETOLOGY METHOD 09/02/2024 11:26 AM EDT [facility] MPV 10.7 7.0 - 11.0 FL LAB HEMETOLOGY METHOD 09/02/2024 11:26 AM EDT [facility] NRBC 0.0 <1.0 % [facility] 09/02/2024 11:26 AM EDT [facility] NRBC Absolute 0.00 <0.10 K/mcL LAB HEMETOLOGY METHOD 09/02/2024 11:26 AM EDT [facility] Blood Venous blood specimen / Unknown Venipuncture / Unknown 09/02/2024 7:40 AM EDT 09/02/2024 10:50 AM EDT Torrey Kwok MD LAB BLOOD ORDERABLES Final Resul t [facility] [address] [place] [address], documented in this encounter Visit Diagnoses Diagnosis 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
--- OUTSIDE RECORDS SUMMARY | 2025-02-12 22:26 | XMS_ITS | Encounter Summary ---
Author Organization [facility] Address [address] [place] [phone] Care Team Providers Care Marking Machine Operator Name Role Phone Torrey Kwok MD Primary Care Provider [phone] Encounter Details Date Type Department Care Team (Late st Contact Info) Description 06/07/2024 Lab Requisition [facility] - Main Lab 299 [facility] [place] [address] Torrey Kwok MD [address] [place], [place] [phone] Type 2 diabetes mellitus with diabetic chronic [...] (CMS/HCC) Essential (primary) hypertension Heart failure, unspecified (CMS/[facility]) 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 ([facility]) documented in this encounter Results [...] t [facility] [address] [place] [address], * (ABNORMAL) Complete blood count (06/09/2024 6:45 AM EST) [facility] WBC 9.1 4.8 - 10.8 K/mcL [...] LAB HEMETOLOGY METHOD 06/09/2024 1:30 PM EST [facility] MPV 10.5 7.0 - 11.0 FL LAB HEMETOLOGY METHOD 06/09/2024 1:30 PM EST [facility] NRBC 0.0 <1.0 % LAB HEMETOLOGY METHOD 06/09/2024 1:30 PM EST [facility] NRBC Absolute 0.00 <0.10 K/mcL LAB HEMETOLOGY METHOD 06/09/2024 1:30 PM EST [facility] Blood Venous blood specimen / Unknown Venipuncture / Unknown 06/09/2024 6:45 AM EST 06/09/2024 11:22 AM EST Torrey Kwok MD LAB BLOOD ORDERABLES Final Resul t [facility] [address] [place] [address], documented in this encounter Visit Diagnoses Diagnosis [...] documented as of this encounter Care Teams Marking Machine Operator Relationship Specialty Start Date End Date Torrey Kwok MD [address] [facility] [address] [place] [address] PCP - General Geriatric Medicine 04/25/24 documented as of this encounter
--- OUTSIDE RECORDS SUMMARY | 2025-02-12 22:26 | XMS_ITS | Encounter Summary ---
Author Organization [facility] Address [address] [place] [address] Care Team Providers Care Industrial Machine Operator Name Role Phone Torrey Kwok MD Primary Care Provider [phone] Encounter Details Date Type Department Care Team (Late st Contact Info) Description 07/12/2024 Lab Requisition [facility] - Main Lab [address] [place] [address] Torrey Kwok MD [address] [place] [address] Acute cough Social History Tobacco Use Types [...] Procedure Name Priority Date/Time Associated Diagnosis Comments [id number], RSV, FLU A AND B QUALITATIVE RT-PCR, LOCAL REFERENCE LAB Routine 07/11/2024 1:00 PM EDT Acute cough documented in this encounter Results * [id number], RSV, Influenza A and B qualitative RT-PCR (07/11/2024 1:00 PM EDT) SARS COV-2 Not Detected Not Detected LAB MOLECULAR DIAGNOSTICS METHOD 07/12/2024 11:25 AM EDT [facility] Comment: Disclaimer: The manner in which this information is used to guide patient care is the responsibility of the healthcare provider. Testing was performed using the [employer]by[employer] SARS-CoV-2 test. This test has been authorized [...] for Healthcare Providers can be found at: https://www.fda.gov/media/790864/download Fact sheet for Patients can be found at: https://www.fda.gov/media/556141/download Influenza A PCR Not Detected Not Detected LAB MOLECULAR DIAGNOSTICS METHOD 07/12/2024 11:25 AM EDT [facility] Influenza B PCR Not Detected Not Detected LAB MOLECULAR DIAGNOSTICS METHOD 07/12/2024 11:25 AM EDT [facility] RSV PCR Not Detected Not Detected LAB MOLECULAR DIAGNOSTICS METHOD 07/12/2024 11:25 AM EDT [facility] Swab Nasopharyngeal structure / Unknown Non-blood Collection / Unknown 07/11/2024 1:00 PM EDT 07/12/2024 8:28 AM EDT Torrey Kwok MD LAB MICROBIOLOGY - GENERAL ORDER GENET Final Result [facility] [address] [place] [address], documented in this encounter Visit Diagnoses Diagnosis Acute cough documented in this encounter Additional Health Concerns Infection Onset Date Last Indicated Resolved Time Respiratory Rule-Out 07/12/2024 07/11/2024 025 11:25 AM EDT documented as of this encounter Care Teams Industrial Machine Operator Relationship Specialty Start Date End Date Torrey Kwok MD [address] [facility] [address] [place] [address] PCP - General Geriatric Medicine 04/25/24 documented as of this encounter
--- OUTSIDE RECORDS SUMMARY | 2025-02-12 22:26 | XMS_ITS | Encounter Summary ---
Author Organization [facility] Address [address] [place] [address] Care Team Providers Care Microfilming Document Preparer Name Role Phone Torrey Kwok MD Primary Care Provider [phone] Encounter Details Date Type Department Care Team (Late st Contact Info) Description 04/25/2024 Lab Requisition [facility] - Main Lab [address] [facility] [place] [address] Torrey Kwok MD [address] [place], [place] [id number] Vitamin D deficiency, unspecified; Type 2 diabetes [...] t [facility] [address] [place] [address], [place] [phone] * Thyroid stimulating hormone (04/25/2024 5:49 AM EST) [facility] TSH 3.04 0.40 - 4.00 mcIU/mL LAB CHEMISTRY METHOD 04/25/2024 10:35 AM EST [facility] Blood Venous blood specimen / Unknown Venipuncture / Unknown 04/25/2024 5:49 AM EST 04/25/2024 9:21 AM EST us Torrey Kwok MD LAB BLOOD ORDERABLES Final Resul t Performing Organization Address City/[facility]/ZIP Co de Phone Number [facility] [address] [place] [address], [place] [phone] * Folate (04/25/2024 5:49 AM EST) [facility] Folate 12.8 2.8 - 17.0 ng/ml LAB CHEMISTRY METHOD 04/25/2024 11:26 AM EST [facility] Blood Venous blood specimen / Unknown Venipuncture / Unknown 04/25/2024 5:49 AM EST 04/25/2024 9:21 AM EST us Torrey Kwok MD LAB BLOOD ORDERABLES Final Resul t [facility] [address] [place] [address], [place] [phone] * Vitamin B12 (04/25/2024 5:49 AM EST) [facility] Vitamin B-12 711 250 - 900 pcg/mL LAB CHEMISTRY METHOD 04/25/2024 11:26 AM EST [facility] Blood Venous blood specimen / Unknown Venipuncture / Unknown 04/25/2024 5:49 AM EST 04/25/2024 9:21 AM EST us Torrey Kwok MD LAB BLOOD ORDERABLES Final Resul t [facility] [address] [place] [address], [place] [phone] * (ABNORMAL) Hemoglobin A1c (04/25/2024 5:49 AM EST) Hemoglobin A1C 8.7(H) <6.5 % LAB CHEMISTRY METHOD 04/25/2024 1:33 PM EST [facility] Mean Bld Glu Estim. 203 mg/dL LAB CHEMISTRY METHOD 04/25/2024 1:33 PM [facility] Blood Venous blood specimen / Unknown Venipuncture / Unknown 04/25/2024 5:49 AM EST 04/25/2024 9:21 AM EST us Torrey Kwok MD LAB BLOOD ORDERABLES Final Resul t Performing Organization Address [facility]/ZIP Co de Phone Number [facility] [address] [place] [address], [place] [phone] * (ABNORMAL) Comprehensive metabolic panel (04/25/2024 5:49 AM EST) Pathologist [facility] Sodium 135 133 - 145 mmol/L LAB CHEMISTRY METHOD 04/25/2024 11:26 AM [facility] Potassium 4.0 3.5 - 5.5 mmol/L LAB CHEMISTRY METHOD 04/25/2024 11:26 AM EST [facility] Chloride 98 96 - 110 mmol/L LAB CHEMISTRY METHOD 04/25/2024 11:26 AM [facility] CO2 30 21 - 32 mmol/L LAB CHEMISTRY METHOD 04/25/2024 11:26 AM [facility] Anion Gap 7 3 - 11 LAB CHEMISTRY METHOD 04/25/2024 11:26 AM [facility] Glucose 290(H) 70 - 100 mg/dL LAB CHEMISTRY METHOD 04/25/2024 11:26 AM [facility] BUN 25 5 - 25 mg/dL LAB CHEMISTRY METHOD 04/25/2024 11:26 AM [facility] Creatinine 1.06 0.50 - 1.10 mg/dL LAB CHEMISTRY METHOD 04/25/2024 11:26 AM [facility] eGFR 51(L) >=60 mL/min/1. 73m2 LAB CHEMISTRY METHOD 04/25/2024 11:26 AM [facility] Comment:Calculation based on the Chronic Kidney Disease Epidemiology Collaboration (CKD-EPI) equation refit without adjustment for race. BUN/Creatinine Ratio 23.6 LAB CHEMISTRY METHOD 04/25/2024 11:26 AM [facility] Calcium 8.2(L) 8.5 - 10.5 mg/dL LAB CHEMISTRY METHOD 04/25/2024 11:26 AM [facility] AST (SGOT) 17 10 - 42 unit/L LAB CHEMISTRY METHOD 04/25/2024 11:26 AM [facility] ALT (SGPT) 16 10 - 60 unit/L LAB CHEMISTRY METHOD 04/25/2024 11:26 AM [facility] Alkaline Phosphatase 81 42 - 121 unit/L LAB CHEMISTRY METHOD 04/25/2024 11:26 AM [facility] Total Protein 5.3(L) 6.0 - 8.0 g/dL LAB CHEMISTRY METHOD 04/25/2024 11:26 AM [facility] Albumin 2.7(L) 3.2 - 5.0 g/dL LAB CHEMISTRY METHOD 04/25/2024 11:26 AM [facility] Total Bilirubin 1.2 0.0 - 1.4 mg/dL LAB CHEMISTRY METHOD 04/25/2024 11:26 AM [facility] Blood Venous blood specimen / Unknown Venipuncture / Unknown 04/25/2024 5:49 AM EST 04/25/2024 9:21 AM EST us Torrey Kwok MD LAB BLOOD ORDERABLES Final Resul t [facility] [address] [place] [address], [place] [phone] * (ABNORMAL) Complete blood count (04/25/2024 5:49 AM EST) WBC 7.7 4.8 - 10.8 K/mcL LAB HEMETOLOGY METHOD 04/25/2024 10:07 AM [facility] RBC 2.90(L) 3.80 - 4.80 M/mcL LAB HEMETOLOGY METHOD 04/25/2024 10:07 AM [facility] Hemoglobin 9.1(L) 11.5 - 16.0 g/dL LAB HEMETOLOGY METHOD 04/25/2024 10:07 AM [facility] Hematocrit 27.7(L) 35.0 - 47.0 % LAB HEMETOLOGY METHOD 04/25/2024 10:07 AM [facility] MCV 94.9 79.0 - 98.0 FL LAB HEMETOLOGY METHOD 04/25/2024 10:07 AM [facility] MCH 31.2 27.0 - 32.0 pcg LAB HEMETOLOGY METHOD 04/25/2024 10:07 AM [facility] MCHC 32.9 32.0 - 37.0 g/dL LAB HEMETOLOGY METHOD 04/25/2024 10:07 AM [facility] RDW 15.5(H) 11.0 - 15.0 % LAB HEMETOLOGY METHOD 04/25/2024 10:07 AM [facility] Platelets 214 130 - 400 K/mcL LAB HEMETOLOGY METHOD 04/25/2024 10:07 AM [facility] MPV 10.8 7.0 [...] t [facility] [address] [place] [address], documented in this encounter Visit Diagnoses Diagnosis [...] documented as of this encounter Care Teams Microfilming Document Preparer Relationship Specialty Start Date End Date Torrey Kwok MD [address] [place] [address] [address] [place] [address] PCP - General Geriatric Medicine 04/25/24 documented as of this encounter
--- OUTSIDE RECORDS SUMMARY | 2025-02-12 22:26 | XMS_ITS | Encounter Summary ---
Author Organization [facility] Address [address] [place] [address] Care Team Providers Care Roustabout Crew Name Role Phone Torrey Kwok MD Primary Care Provider [phone] Encounter Details Date Type Department Care Team (Late st Contact Info) Description 01/16/2025 Lab Requisition [facility] - Main Lab [address] [facility] [place] [address] Torrey Kwok MD [address] [place], [place] [id number] Type 2 diabetes mellitus with diabetic chronic [...] Associated Diagnosis Comments COMPLETE BLOOD COUNT Routine 01/19/2025 10:08 AM [...] mellitus with diabetic chronic kidney disease ([facility] V24, [facility] V28) Essential (primary) hypertension Heart failure, unspecified ([facility] V24, [facility] V28) Type 2 diabetes mellitus with unspecified diabetic retinopathy without macular edema ([facility] V24, [facility] V28) documented in this encounter Results * (ABNORMAL) Complete blood count (01/19/2025 10:08 AM EDT) [facility] WBC 9.2 4.8 - 10.8 K/mcL LAB HEMETOLOGY METHOD 01/19/2025 11:28 AM [facility] RBC 3.60(L) 3.80 - 4.80 M/mcL LAB HEMETOLOGY METHOD 01/19/2025 11:28 AM [facility] Hemoglobin 11.3(L) 11.5 - 16.0 g/dL LAB HEMETOLOGY METHOD 01/19/2025 11:28 AM [facility] Hematocrit 34.7(L) 35.0 - 47.0 % LAB HEMETOLOGY METHOD 01/19/2025 11:28 AM [facility] MCV 97.2 79.0 - 98.0 FL LAB HEMETOLOGY METHOD 01/19/2025 11:28 AM [facility] MCH 31.7 27.0 - 32.0 pcg LAB HEMETOLOGY METHOD 01/19/2025 11:28 AM [facility] MCHC 32.6 32.0 - 37.0 g/dL LAB HEMETOLOGY METHOD 01/19/2025 11:28 AM [facility] RDW 15.9(H) 11.0 - 15.0 % LAB HEMETOLOGY METHOD 01/19/2025 11:28 AM [facility] Platelets 243 130 - 400 K/mcL LAB HEMETOLOGY METHOD 01/19/2025 11:28 AM EDT [facility] MPV 10.5 7.0 - 11.0 FL LAB HEMETOLOGY METHOD 01/19/2025 11:28 AM EDT [facility] NRBC 0.0 <1.0 % LAB HEMETOLOGY METHOD 01/19/2025 11:28 AM T [facility] NRBC Absolute 0.00 <0.10 K/mcL LAB HEMETOLOGY METHOD 01/19/2025 11:28 AM T [facility] Blood Venous blood specimen / Unknown Venipuncture / Unknown 01/19/2025 10:08 AM EDT 01/19/2025 10:56 AM EDT us Torrey Kwok MD LAB BLOOD ORDERABLES Final Resul t [facility] [address] [place] [address], * (ABNORMAL) Basic metabolic panel (01/19/2025 10:08 AM EDT) Sodium 135 133 - 145 mmol/L LAB CHEMISTRY METHOD 01/19/2025 2:00 PM [facility] Potassium 3.9 3.5 - 5.5 mmol/L LAB CHEMISTRY METHOD 01/19/2025 2:00 PM [facility] Chloride 99 96 - 110 mmol/L LAB CHEMISTRY METHOD 01/19/2025 2:00 PM [facility] CO2 27 21 - 32 mmol/L LAB CHEMISTRY METHOD 01/19/2025 2:00 PM [facility] Anion Gap 9 3 - 11 LAB CHEMISTRY METHOD 01/19/2025 2:00 PM [facility] Glucose 251(H) 70 - 100 mg/dL LAB CHEMISTRY METHOD 01/19/2025 2:00 PM [facility] BUN 30(H) 5 - 25 mg/dL LAB CHEMISTRY METHOD 01/19/2025 2:00 PM EDT [facility] Creatinine 1.24(H) 0.50 - 1.10 mg/dL LAB CHEMISTRY METHOD 01/19/2025 2:00 PM EDT [facility] eGFR 42(L) >=60 mL/min/1. 73m2 LAB CHEMISTRY METHOD 01/19/2025 2:00 PM EDT [facility] Comment:Calculation based on the Chronic Kidney Disease Epidemiology Collaboration (CKD-EPI) equation refit without adjustment for race. BUN/Creatinine Ratio 24.2 LAB CHEMISTRY METHOD 01/19/2025 2:00 PM EDT [facility] Calcium 9.2 8.5 - 10.5 mg/dL LAB CHEMISTRY METHOD 01/19/2025 2:00 PM EDT [facility] Blood Venous blood specimen / Unknown Venipuncture / Unknown 01/19/2025 10:08 AM EDT 01/19/2025 10:57 AM EDT us Torrey Kwok MD LAB BLOOD ORDERABLES Final Resul t [facility] [address] [place] [address], documented in this encounter Visit Diagnoses Diagnosis 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, [facility] V28) Essential (primary) hypertension Unspecified essential hypertension Heart failure, unspecified (CMS/HCC V24, [facility] V28) Heart failure, unspecified Type 2 diabetes mellitus with unspecified diabetic retinopathy without macular edema ([facility] V24, [facility] V28) documented in this encounter Care Teams Roustabout Crew Relationship Specialty Start Date End Date Torrey Kwok MD [address] [place] [address] [address] [place] [address] PCP - General Geriatric Medicine 04/25/24 documented as of this encounter
--- OUTSIDE RECORDS SUMMARY | 2025-02-12 22:26 | XMS_ITS | Encounter Summary ---
Author Organization [facility] Address [address] [place] [phone] Care Team Providers Care Software Development Analyst Name Role Phone Torrey Kwok MD Primary Care Provider [phone] Encounter Details Date Type Department Care Team (Late st Contact Info) Description 07/18/2024 Lab Requisition [facility] - Main Lab 299 [facility] [place] [address] Torrey Kwok MD [address] [place], [place] [phone] Type 2 diabetes mellitus with diabetic chronic [...] mmol/L LAB CHEMISTRY METHOD 07/21/2024 1:01 PM [facility] Potassium 3.0(L) 3.5 - 5.5 mmol/L LAB CHEMISTRY METHOD 07/21/2024 1:01 PM [facility] Chloride 99 96 - 110 mmol/L LAB CHEMISTRY METHOD 07/21/2024 1:01 PM [facility] CO2 34(H) 21 - 32 mmol/L LAB CHEMISTRY METHOD 07/21/2024 1:01 PM [facility] Anion Gap 6 3 - 11 LAB CHEMISTRY METHOD 07/21/2024 1:01 PM [facility] Glucose 46(L) 70 - 100 mg/dL LAB CHEMISTRY METHOD 07/21/2024 1:01 PM [facility] BUN 33(H) 5 - 25 mg/dL LAB CHEMISTRY METHOD 07/21/2024 1:01 PM [facility] Creatinine 1.06 0.50 - 1.10 mg/dL LAB CHEMISTRY METHOD 07/21/2024 1:01 PM [facility] eGFR 51(L) >=60 mL/min/1. 73m2 LAB CHEMISTRY METHOD 07/21/2024 1:01 PM [facility] Comment:Calculation based on the Chronic Kidney Disease Epidemiology Collaboration (CKD-EPI) equation refit without adjustment for race. BUN/Creatinine Ratio 31.1 LAB CHEMISTRY METHOD 07/21/2024 1:01 PM EDT [facility] Calcium 8.5 8.5 - 10.5 mg/dL LAB CHEMISTRY METHOD 07/21/2024 1:01 PM EDT [facility] Blood Venous blood specimen / Unknown Venipuncture / Unknown 07/21/2024 7:11 AM EDT 07/21/2024 12:26 PM EDT us Torrey Kwok MD LAB BLOOD ORDERABLES Final Resul t [facility] [address] [place] [address], * (ABNORMAL) Complete blood count (07/21/2024 7:11 AM EDT) WBC 7.8 4.8 - 10.8 K/mcL LAB HEMETOLOGY [facility] RBC 3.30(L) 3.80 - 4.80 M/mcL LAB HEMETOLOGY METHOD 07/21/2024 1:34 PM EDT [facility] Hemoglobin 10.6(L) 11.5 - 16.0 g/dL LAB HEMETOLOGY METHOD 07/21/2024 1:34 PM [facility] Hematocrit 33.4(L) 35.0 - 47.0 % LAB HEMETOLOGY METHOD 07/21/2024 1:34 PM EDT [facility] MCV 100.6(H) 79.0 - 98.0 FL LAB HEMETOLOGY METHOD 07/21/2024 1:34 PM EDT [facility] MCH 31.9 27.0 - 32.0 pcg LAB HEMETOLOGY METHOD 07/21/2024 1:34 PM [facility] MCHC 31.7(L) 32.0 - 37.0 g/dL LAB HEMETOLOGY METHOD 07/21/2024 1:34 PM EDT [facility] RDW 17.4(H) 11.0 - 15.0 % LAB HEMETOLOGY METHOD 07/21/2024 1:34 PM EDT [facility] Platelets 283 130 - 400 K/mcL LAB HEMETOLOGY METHOD 07/21/2024 1:34 PM EDT [facility] MPV 10.9 7.0 - 11.0 FL LAB HEMETOLOGY METHOD 07/21/2024 1:34 PM EDT [facility] NRBC 0.0 <1.0 % LAB HEMETOLOGY METHOD 07/21/2024 1:34 PM EDT [facility] NRBC Absolute 0.00 <0.10 K/mcL LAB HEMETOLOGY METHOD 07/21/2024 1:34 PM EDT [facility] Blood Venous blood specimen / Unknown Venipuncture / Unknown 07/21/2024 7:11 AM EDT 07/21/2024 12:26 PM EDT us Torrey Kwok MD LAB BLOOD ORDERABLES Final Resul t [facility] [address] [place] [address], documented in this encounter Visit Diagnoses Diagnosis 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, CMS/HCC V28) Essential (primary) hypertension Unspecified essential hypertension Heart failure, unspecified (CMS/HCC V24, CMS/HCC V28) Heart failure, unspecified 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
--- OUTSIDE RECORDS SUMMARY | 2025-02-12 22:26 | XMS_ITS | Encounter Summary ---
Author Organization [facility] Address [address] [place] [phone] Care Team Providers Care Lip Of Shank Cutter Name Role Phone Torrey Kwok MD Primary Care Provider [phone] Encounter Details Date Type Department Care Team (Late st Contact Info) Description 10/03/[address] [facility] - Main Lab 299 [facility] [place] [address] Torrey Kwok MD [address] [place], [place] [phone] Type 2 diabetes mellitus with diabetic chronic [...] mellitus with diabetic chronic kidney disease ([facility] V24, [facility] V28) Essential (primary) hypertension Heart failure, unspecified ([facility] V24, [facility] V28) Type 2 diabetes mellitus with unspecified diabetic retinopathy without macular edema ([facility] V24, [facility] V28) documented in this encounter Results * (ABNORMAL) Basic metabolic panel (10/06/2024 5:29 AM EDT) Sodium 131(L) 133 - 145 mmol/L LAB CHEMISTRY METHOD 10/06/2024 11:33 AM [facility] Potassium 4.6 3.5 - 5.5 mmol/L LAB CHEMISTRY METHOD 10/06/2024 11:33 AM [facility] Chloride 96 96 - 110 mmol/L LAB CHEMISTRY METHOD 10/06/2024 11:33 AM [facility] CO2 28 21 - 32 mmol/L LAB CHEMISTRY METHOD 10/06/2024 11:33 AM [facility] Anion Gap 7 3 - 11 LAB CHEMISTRY METHOD 10/06/2024 11:33 AM [facility] Glucose 133(H) 70 - 100 mg/dL LAB CHEMISTRY METHOD 10/06/2024 11:33 AM [facility] BUN 29(H) 5 - 25 mg/dL LAB CHEMISTRY METHOD 10/06/2024 11:33 AM [facility] Creatinine 1.32(H) 0.50 - 1.10 mg/dL LAB CHEMISTRY METHOD 10/06/2024 11:33 AM [facility] eGFR 39(L) >=60 mL/min/1. 73m2 LAB CHEMISTRY METHOD 10/06/2024 11:33 AM [facility] Comment:Calculation based on the Chronic Kidney Disease Epidemiology Collaboration (CKD-EPI) equation refit without adjustment for race. BUN/Creatinine Ratio 22.0 LAB CHEMISTRY METHOD 10/06/2024 11:[address] [facility] Calcium 8.7 8.5 - 10.5 mg/dL LAB CHEMISTRY METHOD 10/06/2024 11:[address] [facility] Blood Venous blood specimen / Unknown Venipuncture / Unknown 10/06/2024 5:29 AM EDT 10/06/2024 10:08 AM EDT us Torrey Kwok MD LAB BLOOD ORDERABLES Final Resul t [facility] [address] [place] [address], * (ABNORMAL) Complete blood count (10/06/2024 5:29 AM EDT) WBC 7.7 4.8 - 10.8 K/mcL LAB HEMETOLOGY METHOD 10/06/2024 11:21 AM [facility] RBC 3.10(L) 3.80 - 4.80 M/mcL LAB HEMETOLOGY METHOD 10/06/2024 11:21 AM [facility] Hemoglobin 9.7(L) 11.5 - 16.0 g/dL LAB HEMETOLOGY METHOD 10/06/2024 11:21 AM [facility] Hematocrit 29.9(L) 35.0 - 47.0 % LAB HEMETOLOGY METHOD 10/06/2024 11:[address] [facility] MCV 97.7 79.0 - 98.0 FL LAB HEMETOLOGY METHOD 10/06/2024 11:[address] [facility] MCH 31.7 27.0 - 32.0 pcg LAB HEMETOLOGY METHOD 10/06/2024 11:21 AM [facility] MCHC 32.4 32.0 - 37.0 g/dL LAB HEMETOLOGY METHOD 10/06/2024 11:[address] [facility] RDW 18.5(H) 11.0 - 15.0 % LAB HEMETOLOGY METHOD 10/06/2024 11:[address] [facility] Platelets 248 130 - 400 K/mcL LAB HEMETOLOGY METHOD 10/06/2024 11:[address] [facility] MPV 10.8 7.0 - 11.0 FL LAB HEMETOLOGY METHOD 10/06/2024 11:[address] [facility] NRBC 0.0 <1.0 % LAB HEMETOLOGY METHOD 10/06/2024 11:[address] [facility] NRBC Absolute 0.00 <0.10 K/mcL LAB HEMETOLOGY METHOD 10/06/2024 11:[address] [facility] Blood Venous blood specimen / Unknown Venipuncture / Unknown 10/06/2024 5:29 AM EDT 10/06/2024 10:08 AM EDT Torrey Kwok MD LAB BLOOD ORDERABLES Final Resul t [facility] [address] [place] [address], documented in this encounter Visit Diagnoses Diagnosis 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, CMS/HCC V28) Essential (primary) hypertension Unspecified essential hypertension Heart failure, unspecified (CMS/HCC V24, CMS/HCC V28) Heart failure, unspecified 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 V24, CMS/HCC V28) documented in this encounter Care Teams Lip Of Shank Cutter Relationship Specialty Start Date End Date Torrey Kwok MD [address] [place] [address] [address] [place] [address] PCP - General Geriatric Medicine 04/25/24 documented as of this encounter
--- OUTSIDE RECORDS SUMMARY | 2025-02-12 22:27 | XMS_ITS | Encounter Summary ---
Author Organization [facility] Address [address] [place] [phone] Care Team Providers Care Oxygen Therapist Name Role Phone Torrey Kwok MD Primary Care Provider [phone] Encounter Details Date Type Department Care Team (Late st Contact Info) Description 11/14/2024 Lab Requisition [facility] - Main Lab [address] [facility] [place] [address] Torrey Kwok MD [address] [place], [place] [id number] Type 2 diabetes mellitus with diabetic chronic [...] diabetic chronic kidney disease ([facility] V24, [facility] V28) Essential (primary) hypertension Heart failure, unspecified ([facility] V24, 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 V24, [facility] V28) documented in this encounter Results * (ABNORMAL) Complete blood count (11/17/2024 8:27 AM EDT) [facility] WBC 8.8 4.8 - 10.8 K/mcL LAB HEMETOLOGY [facility] RBC 3.30(L) 3.80 - 4.80 M/mcL LAB HEMETOLOGY METHOD 11/17/2024 1:17 PM [facility] Hemoglobin 10.4(L) 11.5 - 16.0 g/dL LAB HEMETOLOGY METHOD 11/17/2024 1:17 PM [facility] Hematocrit 32.9(L) 35.0 - 47.0 % LAB HEMETOLOGY METHOD 11/17/2024 1:17 PM [facility] MCV 100.0(H) 79.0 - 98.0 FL LAB HEMETOLOGY METHOD 11/17/2024 1:17 PM [facility] MCH 31.6 27.0 - 32.0 pcg LAB HEMETOLOGY METHOD 11/17/2024 1:17 PM [facility] MCHC 31.6(L) 32.0 - 37.0 g/dL LAB HEMETOLOGY METHOD 11/17/2024 1:17 PM [facility] RDW 17.9(H) 11.0 - 15.0 % LAB HEMETOLOGY METHOD 11/17/2024 1:17 PM [facility] Platelets 314 130 - 400 K/mcL LAB HEMETOLOGY METHOD 11/17/2024 1:17 PM EDT [facility] MPV 10.8 7.0 - 11.0 FL LAB HEMETOLOGY METHOD 11/17/2024 1:17 PM EDT [facility] NRBC 0.0 <1.0 % LAB HEMETOLOGY METHOD 11/17/2024 1:17 PM EDT [facility] NRBC Absolute 0.00 <0.10 K/mcL LAB HEMETOLOGY METHOD 11/17/2024 1:17 PM EDT [facility] Blood Venous blood specimen / Unknown Venipuncture / Unknown 11/17/2024 8:27 AM EDT 11/17/2024 11:57 AM EDT us Torrey Kwok MD LAB BLOOD ORDERABLES Final Resul t [facility] [address] [place] [address], * (ABNORMAL) Basic metabolic panel (11/17/2024 8:27 AM EDT) Sodium 135 133 - 145 mmol/L LAB CHEMISTRY METHOD 11/17/2024 1:03 PM [facility] Potassium 4.1 3.5 - 5.5 mmol/L LAB CHEMISTRY METHOD 11/17/2024 1:03 PM [facility] Chloride 99 96 - 110 mmol/L LAB CHEMISTRY METHOD 11/17/2024 1:03 PM [facility] CO2 26 21 - 32 mmol/L LAB CHEMISTRY METHOD 11/17/2024 1:03 PM [facility] Anion Gap 10 3 - 11 LAB CHEMISTRY METHOD 11/17/2024 1:03 PM [facility] Glucose 146(H) 70 - 100 mg/dL LAB CHEMISTRY METHOD 11/17/2024 1:03 PM [facility] BUN 42(H) 5 - 25 mg/dL LAB CHEMISTRY METHOD 11/17/2024 1:03 PM EDT [facility] Creatinine 1.42(H) 0.50 - 1.10 mg/dL LAB CHEMISTRY METHOD 11/17/2024 1:03 PM EDT [facility] eGFR 36(L) >=60 mL/min/1. 73m2 LAB CHEMISTRY METHOD 11/17/2024 1:03 PM EDT [facility] Comment:Calculation based on the Chronic Kidney Disease Epidemiology Collaboration (CKD-EPI) equation refit without adjustment for race. BUN/Creatinine Ratio 29.6 LAB CHEMISTRY METHOD 11/17/2024 1:03 PM EDT [facility] Calcium 9.1 8.5 - 10.5 mg/dL LAB CHEMISTRY METHOD 11/17/2024 1:03 PM EDT [facility] Blood Venous blood specimen / Unknown Venipuncture / Unknown 11/17/2024 8:27 AM EDT 11/17/2024 11:57 AM EDT Torrey Kwok MD LAB BLOOD ORDERABLES Final Resul t [facility] [address] [place] [address], documented in this encounter Visit Diagnoses Diagnosis 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, CMS/HCC V28) Essential (primary) hypertension Unspecified essential hypertension Heart failure, unspecified (CMS/HCC V24, CMS/HCC V28) Heart failure, unspecified 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
--- OUTSIDE RECORDS SUMMARY | 2025-02-12 22:27 | XMS_ITS | Encounter Summary ---
Author Organization [facility] Address [address] [place] [phone] Care Team Providers Care Blasting Clay Miner Name Role Phone Torrey Kwok MD Primary Care Provider [phone] Encounter Details Date Type Department Care Team (Late st Contact Info) Description 11/08/2024 Lab Requisition [facility] - Main Lab [address] [facility] [place] [address] Torrey wKok MD [address] [place], [place] [phone] Type 2 diabetes mellitus with diabetic chronic [...] mellitus with diabetic chronic kidney disease ([facility] [place], [facility] V28) Essential (primary) hypertension Heart failure, unspecified ([facility] V24, [facility] V28) Type 2 diabetes mellitus with unspecified diabetic retinopathy without macular edema ([facility] V24, [facility] V28) documented in this encounter Results * (ABNORMAL) Complete blood count (11/10/2024 9:37 AM EDT) [facility] WBC 7.4 4.8 - 10.8 K/mcL LAB HEMETOLOGY METHOD 11/10/2024 1:22 PM [facility] RBC 3.30(L) 3.80 - 4.80 M/mcL LAB HEMETOLOGY METHOD 11/10/2024 1:22 PM [facility] Hemoglobin 10.3(L) 11.5 - 16.0 g/dL LAB HEMETOLOGY METHOD 11/10/2024 1:22 PM [facility] Hematocrit 33.5(L) 35.0 - 47.0 % LAB HEMETOLOGY METHOD 11/10/2024 1:22 PM [facility] MCV 101.2(H) 79.0 - 98.0 FL LAB HEMETOLOGY METHOD 11/10/2024 1:22 PM [facility] MCH 31.1 27.0 - 32.0 pcg LAB HEMETOLOGY METHOD 11/10/2024 1:22 PM [facility] MCHC 30.7(L) 32.0 - 37.0 g/dL LAB HEMETOLOGY METHOD 11/10/2024 1:22 PM [facility] RDW 18.3(H) 11.0 - 15.0 % LAB HEMETOLOGY METHOD 11/10/2024 1:22 PM [facility] Platelets 308 130 - 400 K/mcL LAB HEMETOLOGY METHOD 11/10/2024 1:22 PM EDT [facility] MPV 10.5 7.0 - 11.0 FL LAB HEMETOLOGY METHOD 11/10/2024 1:22 PM EDT [facility] NRBC 0.0 <1.0 % LAB HEMETOLOGY METHOD 11/10/2024 1:22 PM EDT [facility] NRBC Absolute 0.00 <0.10 K/mcL LAB HEMETOLOGY METHOD 11/10/2024 1:22 PM EDT [facility] Blood Venous blood specimen / Unknown Venipuncture / Unknown 11/10/2024 9:37 AM EDT 11/10/2024 11:17 AM EDT us Torrey Kwok MD LAB BLOOD ORDERABLES Final Resul t [facility] [address] [place] [address], * (ABNORMAL) Basic metabolic panel (11/10/2024 9:37 AM EDT) Sodium 136 133 - 145 mmol/L LAB CHEMISTRY METHOD 11/10/2024 1:18 PM [facility] Potassium 3.8 3.5 - 5.5 mmol/L LAB CHEMISTRY METHOD 11/10/2024 1:18 PM [facility] Chloride 103 96 - 110 mmol/L LAB CHEMISTRY METHOD 11/10/2024 1:18 PM [facility] CO2 26 21 - 32 mmol/L LAB CHEMISTRY METHOD 11/10/2024 1:18 PM [facility] Anion Gap 7 3 - 11 LAB CHEMISTRY METHOD 11/10/2024 1:18 PM [facility] Glucose 246(H) 70 - 100 mg/dL LAB CHEMISTRY METHOD 11/10/2024 1:18 PM [facility] BUN 28(H) 5 - 25 mg/dL LAB CHEMISTRY METHOD 11/10/2024 1:18 PM EDT [facility] Creatinine 1.22(H) 0.50 - 1.10 mg/dL LAB CHEMISTRY METHOD 11/10/2024 1:18 PM EDT [facility] eGFR 43(L) >=60 mL/min/1. 73m2 LAB CHEMISTRY METHOD 11/10/2024 1:18 PM EDT [facility] Comment:Calculation based on the Chronic Kidney Disease Epidemiology Collaboration (CKD-EPI) equation refit without adjustment for race. BUN/Creatinine Ratio 23.0 LAB CHEMISTRY METHOD 11/10/2024 1:18 PM EDT [facility] Calcium 8.9 8.5 - 10.5 mg/dL LAB CHEMISTRY METHOD 11/10/2024 1:18 PM EDT [facility] Blood Venous blood specimen / Unknown Venipuncture / Unknown 11/10/2024 9:37 AM EDT 11/10/2024 11:17 AM EDT Torrey Kwok MD LAB BLOOD ORDERABLES Final Resul t [facility] [address] [place] [address], documented in this encounter Visit Diagnoses Diagnosis 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, CMS/HCC V28) Essential (primary) hypertension Unspecified essential hypertension Heart failure, unspecified (CMS/HCC V24, CMS/HCC V28) Heart failure, unspecified 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 V24, CMS/HCC V28) documented in this encounter Care Teams Blasting Clay Miner Relationship Specialty Start Date End Date Torrey Kwok MD [address] [place] [address] [address] [place] [address] PCP - General Geriatric Medicine 04/25/24 documented as of this encounter
--- OUTSIDE RECORDS SUMMARY | 2025-02-12 22:27 | XMS_ITS | Encounter Summary ---
Author Organization [facility] Address [address] [place] [phone] Care Team Providers Care Bicycle Subassembler Name Role Phone Torrey Kwok MD Primary Care Provider [phone] Encounter Details Date Type Department Care Team (Late st Contact Info) Description 10/28/2024 Lab Requisition [facility] - Main Lab [address] [facility] [place] [address] Social History Tobacco Use Types [...] on filedocumented in this encounter Care Teams Bicycle Subassembler Relationship Specialty Start Date End Date Torrey Kwok MD [address] [place] [address] PCP - General Geriatric Medicine 04/25/24 documented as of this encounter
--- OUTSIDE RECORDS SUMMARY | 2025-02-12 22:27 | XMS_ITS | Encounter Summary ---
Author Organization [facility] Address [address] [place] [phone] Care Team Providers Care Conveyor Weigher Operator Name Role Phone Torrey Kwok MD Primary Care Provider [phone] Encounter Details Date Type Department Care Team (Late st Contact Info) Description 11/01/[address] [facility] - Main Lab [address] [facility] [place] [address] Torrey Kwok MD [address] [place], [place] [phone] Type 2 diabetes mellitus with diabetic chronic [...] diabetes mellitus with diabetic chronic kidney disease ([facility] V24, [facility] V28) Essential (primary) hypertension Heart failure, unspecified ([facility] V24, [facility] V28) Type 2 diabetes mellitus with unspecified diabetic retinopathy without macular edema ([facility] V24, [facility] V28) documented in this encounter Results * (ABNORMAL) Basic metabolic panel (11/03/2024 5:57 AM EDT) Sodium 135 133 - 145 mmol/L LAB CHEMISTRY METHOD 11/03/2024 11:[address] [facility] Potassium 4.1 3.5 - 5.5 mmol/L LAB CHEMISTRY METHOD 11/03/2024 11:[address] [facility] Chloride 99 96 - 110 mmol/L LAB CHEMISTRY METHOD 11/03/2024 11:[address] [facility] CO2 28 21 - 32 mmol/L LAB CHEMISTRY METHOD 11/03/2024 11:[address] [facility] Anion Gap 8 3 - 11 LAB CHEMISTRY METHOD 11/03/2024 11:[address] [facility] Glucose 150(H) 70 - 100 mg/dL LAB CHEMISTRY METHOD 11/03/2024 11:[address] [facility] BUN 35(H) 5 - 25 mg/dL LAB CHEMISTRY METHOD 11/03/2024 11:[address] [facility] Creatinine 1.19(H) 0.50 - 1.10 mg/dL LAB CHEMISTRY METHOD 11/03/2024 11:[address] [facility] eGFR 44(L) >=60 mL/min/1. 73m2 LAB CHEMISTRY METHOD 11/03/2024 11:[address] [facility] Comment:Calculation based on the Chronic Kidney Disease Epidemiology Collaboration (CKD-EPI) equation refit without adjustment for race. BUN/Creatinine Ratio 29.4 LAB CHEMISTRY METHOD 11/03/2024 11:32 AM EDT [facility] Calcium 9.1 8.5 - 10.5 mg/dL LAB CHEMISTRY METHOD 11/03/2024 11:32 AM T [facility] Blood Venous blood specimen / Unknown 11/03/2024 5:57 AM EDT 11/03/2024 10:16 AM EDT us Torrey Kwok MD LAB BLOOD ORDERABLES Final Resul t [facility] [address] [place] [address], * (ABNORMAL) Complete blood count (11/03/2024 5:57 AM EDT) WBC 7.6 4.8 - 10.8 K/mcL LAB HEMETOLOGY METHOD 11/03/2024 11:[address] [facility] RBC 3.20(L) 3.80 - 4.80 M/mcL LAB HEMETOLOGY METHOD 11/03/2024 11:[address] [facility] Hemoglobin 10.0(L) 11.5 - 16.0 g/dL LAB HEMETOLOGY METHOD 11/03/2024 11:[address] [facility] Hematocrit 31.0(L) 35.0 - 47.0 % LAB HEMETOLOGY METHOD 11/03/2024 11:[address] [facility] MCV 97.8 79.0 - 98.0 FL LAB HEMETOLOGY METHOD 11/03/2024 11:[address] [facility] MCH 31.5 27.0 - 32.0 pcg LAB HEMETOLOGY METHOD 11/03/2024 11:[address] [facility] MCHC 32.3 32.0 - 37.0 g/dL LAB HEMETOLOGY METHOD 11/03/2024 11:[address] [facility] RDW 18.5(H) 11.0 - 15.0 % LAB HEMETOLOGY METHOD 11/03/2024 11:26 AM EDT [facility] Platelets 279 130 - 400 K/mcL LAB HEMETOLOGY METHOD 11/03/2024 11:26 AM EDT [facility] MPV 10.7 7.0 - 11.0 FL LAB HEMETOLOGY METHOD 11/03/2024 11:26 AM EDT [facility] NRBC 0.0 <1.0 % LAB HEMETOLOGY METHOD 11/03/2024 11:26 AM EDT [facility] NRBC Absolute 0.00 <0.10 K/mcL LAB HEMETOLOGY METHOD 11/03/2024 11:26 AM EDT [facility] Blood Venous blood specimen / Unknown Venipuncture / Unknown 11/03/2024 5:57 AM EDT 11/03/2024 10:16 AM EDT us Torrey Kwok MD LAB BLOOD ORDERABLES Final Resul t [facility] [address] [place] [address], documented in this encounter Visit Diagnoses Diagnosis 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, [facility]/H[facility] V28) Essential (primary) hypertension Unspecified essential hypertension Heart failure, unspecified ([facility]/HCC V24, [facility]/HCC V28) Heart failure, unspecified Type 2 diabetes mellitus with unspecified diabetic retinopathy without macular edema ([facility]/HCC V24, [facility]/HCC V28) documented in this encounter Care Teams Conveyor Weigher Operator Relationship Specialty Start Date End Date Torrey Kwok MD [address] [place] [address] [address] [place] [address] PCP - General Geriatric Medicine 04/25/24 documented as of this encounter
--- OUTSIDE RECORDS SUMMARY | 2025-02-12 22:27 | XMS_ITS | Encounter Summary ---
Author Organization [facility] Address [address] [place] [phone] Care Team Providers Care Supervisory Geographer Name Role Phone Torrey Kwok MD Primary Care Provider Encounter Details Date Type Department Care Team (Late st Contact Info) Description 10/25/2024 Lab Requisition [facility] - Main Lab 299 [facility] [place] [address] Torrey Kwok MD [address] [place], [place] [id number] Type 2 diabetes mellitus with diabetic chronic [...] diabetes mellitus with diabetic chronic kidney disease ([facility] V24, [facility] V28) Essential (primary) hypertension Heart failure, unspecified ([facility] V24, [facility] V28) Type 2 diabetes mellitus with unspecified diabetic retinopathy with macular edema ([facility] V24, [facility] V28) documented in this encounter Results * (ABNORMAL) Complete blood count (10/27/2024 6:16 AM EDT) [facility] WBC 7.0 4.8 - 10.8 K/mcL LAB HEMETOLOGY METHOD 10/27/2024 10:21 AM [facility] RBC 3.20(L) 3.80 - 4.80 M/mcL LAB HEMETOLOGY METHOD 10/27/2024 10:21 AM [facility] Hemoglobin 10.2(L) 11.5 - 16.0 g/dL LAB HEMETOLOGY METHOD 10/27/2024 10:21 AM [facility] Hematocrit 31.8(L) 35.0 - 47.0 % LAB HEMETOLOGY METHOD 10/27/2024 10:21 AM [facility] MCV 100.0(H) 79.0 - 98.0 FL LAB HEMETOLOGY METHOD 10/27/2024 10:21 AM [facility] MCH 32.1(H) 27.0 - 32.0 pcg LAB HEMETOLOGY METHOD 10/27/2024 10:21 AM [facility] MCHC 32.1 32.0 - 37.0 g/dL LAB HEMETOLOGY METHOD 10/27/2024 10:21 AM [facility] RDW 18.6(H) 11.0 - 15.0 % LAB HEMETOLOGY METHOD 10/27/2024 10:21 AM [facility] Platelets 291 130 - 400 K/mcL LAB HEMETOLOGY METHOD 10/27/2024 10:21 AM EDT [facility] MPV 10.8 7.0 - 11.0 FL LAB HEMETOLOGY METHOD 10/27/2024 10:21 AM EDT [facility] NRBC 0.0 <1.0 % LAB HEMETOLOGY METHOD 10/27/2024 10:21 AM EDT [facility] NRBC Absolute 0.00 <0.10 K/mcL LAB HEMETOLOGY METHOD 10/27/2024 10:21 AM EDT [facility] Blood Venous blood specimen / Unknown Venipuncture / Unknown 10/27/2024 6:16 AM EDT 10/27/2024 10:08 AM EDT us Torrey Kwok MD LAB BLOOD ORDERABLES Final Resul t [facility] [address] [place] [address], * (ABNORMAL) Basic metabolic panel (10/27/2024 6:16 AM EDT) Sodium 135 133 - 145 mmol/L LAB CHEMISTRY METHOD 10/27/2024 12:05 PM [facility] Potassium 4.3 3.5 - 5.5 mmol/L LAB CHEMISTRY METHOD 10/27/2024 12:05 PM [facility] Chloride 99 96 - 110 mmol/L LAB CHEMISTRY METHOD 10/27/2024 12:05 PM [facility] CO2 28 21 - 32 mmol/L LAB CHEMISTRY METHOD 10/27/2024 12:05 PM [facility] Anion Gap 8 3 - 11 LAB CHEMISTRY METHOD 10/27/2024 12:05 PM [facility] Glucose 175(H) 70 - 100 mg/dL LAB CHEMISTRY METHOD 10/27/2024 12:05 PM [facility] BUN 37(H) 5 - 25 mg/dL LAB CHEMISTRY METHOD 10/27/2024 12:05 PM EDT [facility] Creatinine 1.35(H) 0.50 - 1.10 mg/dL LAB CHEMISTRY METHOD 10/27/2024 12:05 PM EDT [facility] eGFR 38(L) >=60 mL/min/1. 73m2 LAB CHEMISTRY METHOD 10/27/2024 12:05 PM EDT [facility] Comment:Calculation based on the Chronic Kidney Disease Epidemiology Collaboration (CKD-EPI) equation refit without adjustment for race. BUN/Creatinine Ratio 27.4 LAB CHEMISTRY METHOD 10/27/2024 12:05 PM EDT [facility] Calcium 8.6 8.5 - 10.5 mg/dL LAB CHEMISTRY METHOD 10/27/2024 12:05 PM EDT [facility] Blood Venous blood specimen / Unknown Venipuncture / Unknown 10/27/2024 6:16 AM EDT 10/27/2024 10:08 AM EDT us Torrey Kwok MD LAB BLOOD ORDERABLES Final Resul t [facility] [address] [place] [address], documented in this encounter Visit Diagnoses Diagnosis 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, CMS/HCC V28) Essential (primary) hypertension Unspecified essential hypertension Heart failure, unspecified (CMS/HCC V24, CMS/HCC V28) Heart failure, unspecified 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 V24, CMS/HCC V28) documented in this encounter Care Teams Supervisory Geographer Relationship Specialty Start Date End Date Torrey Kwok MD [address] [place] [address] [address] [place] [address] PCP - General Geriatric Medicine 04/25/24 documented as of this encounter
--- OUTSIDE RECORDS SUMMARY | 2025-02-12 22:27 | XMS_ITS | Encounter Summary ---
Author Organization [facility] Address [id number] [place] [id number] Care Team Providers Care Superintendent Division Name Role Phone Torrey Kwok MD Primary Care Provider [phone] Encounter Details Date Type Department Care Team (Late st Contact Info) Description 10/28/2024 Lab Requisition [facility] - Main Lab [address] [facility] [employer] [place] [address] Torrey Kwok MD [address] [place], [place] [id number] Frequency of micturition Social History Tobacco Use [...] recollection if clinically indicated. 10/29/2024 9:[address] [facility] Urine Urine specimen obtained by clean catch procedure / Unknown 10/28/2024 10/28/2024 10:52 AM EDT Torrey Kwok MD LAB MICROBIOLOGY - GENERAL ORDER GENET Final Result [facility] [address] [place] [address], [place] [phone] * (ABNORMAL) Urinalysis with reflex microscopic and culture (10/28/2024 12:00 AM EDT) [facility] [place] Urine 1.013 1.003 - 1.030 LAB URINALYSIS - AUTOMATED METHOD 10/28/2024 10:[address] [facility] pH, Urine 5.5 5.0 - 8.0 pH LAB URINALYSIS - AUTOMATED METHOD 10/28/2024 10:[address] [facility] Leukocytes, Urine Large(A) Negative LAB URINALYSIS - AUTOMATED METHOD 10/28/2024 10:[address] [facility] Nitrite, Urine Negative Negative LAB URINALYSIS - AUTOMATED METHOD 10/28/2024 10:[address] [facility] Protein, Urine Trace <=Trace mg/dL LAB URINALYSIS - AUTOMATED METHOD 10/28/2024 10:[address] [facility] Glucose, Urine Negative Negative mg/dL LAB URINALYSIS - AUTOMATED METHOD 10/28/2024 10:[address] [facility] Ketones, Urine Negative Negative mg/dL LAB URINALYSIS - AUTOMATED METHOD 10/28/2024 10:[address] [facility] Urobilinogen, Urine 0.2 0.2 - 1.0 mg/dL LAB URINALYSIS - AUTOMATED METHOD 10/28/2024 10:[address] [facility] Bilirubin, Urine Negative Negative LAB URINALYSIS - AUTOMATED METHOD 10/28/2024 10:[address] [facility] Blood, Urine Negative Negative LAB URINALYSIS - AUTOMATED METHOD 10/28/2024 10:[address] [facility] RBC, Urine 3.2 0 - 4 /HPF LAB URINALYSIS - AUTOMATED METHOD 10/28/2024 10:[address] [facility] WBC, Urine 43.0(H) 0 - 4 /HPF LAB URINALYSIS - AUTOMATED METHOD 10/28/2024 10:[address] [facility] Squamous Epithelial, Urine 57 0 - 60 /LPF LAB URINALYSIS - AUTOMATED METHOD 10/28/2024 10:[address] [facility] Bacteria, Urine Negative Negative /HPF LAB URINALYSIS - AUTOMATED METHOD 10/28/2024 10:[address] [facility] Hyaline Casts, Urine 0.4 0 - 3 /LPF LAB URINALYSIS - AUTOMATED METHOD 10/28/2024 10:[address] [facility] Urine Urine specimen obtained by clean catch procedure / Unknown 10/28/2024 10/28/2024 10:32 AM EDT us Torrey Kwok MD LAB URINE ORDERABLES Final Resul t [facility] [address] [place] [address], * Frost urine culture tube (10/28/2024 12:00 AM EDT) Extra Tube Hold for add-ons. [facility] Comment:Auto resulted. Urine Urine specimen obtained by clean catch procedure / Unknown Non-blood Collection / Unknown 10/28/2024 10/28/2024 10:25 AM EDT Torrey Kwok MD LAB URINE ORDERABLES Final Resul t [facility] [address] [place] [address], documented in this encounter Visit Diagnoses Diagnosis Frequency of micturition Urinary frequency documented in this encounter Care Teams Superintendent Division Relationship Specialty Start Date End Date Torrey Kwok MD [address] [place] [address] [address] [place] [address] PCP - General Geriatric Medicine 04/25/24 documented as of this encounter
--- OUTSIDE RECORDS SUMMARY | 2025-02-12 22:27 | XMS_ITS | Encounter Summary ---
Author Organization [facility] Address [id number] [place] [phone] Care Team Providers Care Electromechanical Assembly Technician Name Role Phone Torrey Kwok MD Primary Care Provider [phone] Encounter Details Date Type Department Care Team (Late st Contact Info) Description 09/19/[address] [facility] - Main Lab [address] [facility] [place] [address] Torrey Kwok MD [address] [place], [place] [id number] Type 2 diabetes mellitus with diabetic chronic [...] diabetes mellitus with diabetic chronic kidney disease ([facility] [place], [facility] V28) Essential (primary) hypertension Heart failure, unspecified ([facility] [place]24, [facility] V28) Type 2 diabetes mellitus with unspecified diabetic retinopathy without macular edema ([facility] [place]24, [facility] V28) documented in this encounter Results * (ABNORMAL) Basic metabolic panel (09/22/2024 6:43 AM EDT) Sodium 126(L) 133 - 145 mmol/L LAB CHEMISTRY METHOD 09/22/2024 2:17 PM [facility] Potassium 4.6 3.5 - 5.5 mmol/L LAB CHEMISTRY METHOD 09/22/2024 2:17 PM [facility] Chloride 90(L) 96 - 110 mmol/L LAB CHEMISTRY METHOD 09/22/2024 2:17 PM [facility] CO2 23 21 - 32 mmol/L LAB CHEMISTRY METHOD 09/22/2024 2:17 PM [facility] Anion Gap 13(H) 3 - 11 LAB CHEMISTRY METHOD 09/22/2024 2:17 PM [facility] Glucose 602(HH) 70 - 100 mg/dL LAB CHEMISTRY METHOD 09/22/2024 2:17 PM [facility] BUN 49(H) 5 - 25 mg/dL LAB CHEMISTRY METHOD 09/22/2024 2:17 PM [facility] Creatinine 1.76(H) 0.50 - 1.10 mg/dL LAB CHEMISTRY METHOD 09/22/2024 2:17 PM [facility] eGFR 28(L) >=60 mL/min/1. 73m2 LAB CHEMISTRY METHOD 09/22/2024 2:17 PM [facility] Comment:Calculation based on the Chronic Kidney Disease Epidemiology Collaboration (CKD-EPI) equation refit without adjustment for race. BUN/Creatinine Ratio 27.8 LAB CHEMISTRY METHOD 09/22/2024 2:17 PM EDT [facility] Calcium 8.7 8.5 - 10.5 mg/dL LAB CHEMISTRY METHOD 09/22/2024 2:17 PM EDT [facility] Blood Venous blood specimen / Unknown Venipuncture / Unknown 09/22/2024 6:43 AM EDT 09/22/2024 11:59 AM EDT Torrey Kwok MD LAB BLOOD ORDERABLES Final Resul t [facility] [address] [place] [address], * (ABNORMAL) Complete blood count (09/22/2024 6:43 AM EDT) WBC 8.0 4.8 - 10.8 K/mcL LAB HEMETOLOGY METHOD 09/22/2024 1:20 PM EDT [facility] RBC 4.10 3.80 - 4.80 M/mcL LAB HEMETOLOGY METHOD 09/22/2024 1:20 PM EDT [facility] Hemoglobin 12.7 11.5 - 16.0 g/dL LAB HEMETOLOGY METHOD 09/22/2024 1:20 PM EDT [facility] Hematocrit 39.4 35.0 - 47.0 % LAB HEMETOLOGY METHOD 09/22/2024 1:20 PM EDT [facility] MCV 97.0 79.0 - 98.0 FL LAB HEMETOLOGY METHOD 09/22/2024 1:20 PM EDT [facility] MCH 31.3 27.0 - 32.0 pcg LAB HEMETOLOGY METHOD 09/22/2024 1:20 PM EDT [facility] MCHC 32.2 32.0 - 37.0 g/dL LAB HEMETOLOGY METHOD 09/22/2024 1:20 PM EDT [facility] RDW 17.1(H) 11.0 - 15.0 % LAB HEMETOLOGY METHOD 09/22/2024 1:20 PM EDT [facility] Platelets 282 130 - 400 K/mcL LAB HEMETOLOGY METHOD 09/22/2024 1:20 PM EDT [facility] MPV 11.3(H) 7.0 - 11.0 FL LAB HEMETOLOGY METHOD 09/22/2024 1:20 PM EDT [facility] NRBC 0.0 <1.0 % LAB HEMETOLOGY METHOD 09/22/2024 1:20 PM EDT [facility] NRBC Absolute 0.00 <0.10 K/mcL LAB HEMETOLOGY METHOD 09/22/2024 1:20 PM EDT [facility] Blood Venous blood specimen / Unknown Venipuncture / Unknown 09/22/2024 6:43 AM EDT 09/22/2024 11:59 AM EDT Torrey Kwok MD LAB BLOOD ORDERABLES Final Resul t [facility] [address] [place] [address], documented in this encounter Visit Diagnoses Diagnosis 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, CMS/HCC V28) Essential (primary) hypertension Unspecified essential hypertension Heart failure, unspecified (CMS/HCC V24, CMS/HCC V28) Heart failure, unspecified 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 V24, CMS/HCC V28) documented in this encounter Care Teams Electromechanical Assembly Technician Relationship Specialty Start Date End Date Torrey Kwok MD [address] [place] [address] [address] [place] [address] PCP - General Geriatric Medicine 04/25/24 documented as of this encounter
[2025-02-12 22:40] LABS: Hematocrit 31.6 % (37.0-47.0); Hemoglobin 10.3 g/dl (12.0-16.0); Imm Gran Abs Auto 0.07 X10*3/uL (0.00-0.03); Imm Gran Pct Auto 1.3 % (0.0-0.4); Lymphocytes Absolute Auto 1.2 X10*3/uL (1.2-4.9); MANUAL DIFF FLAG NO; Mean Corpuscular HGB Conc 32.6 g/dl (31.0-35.0); Mean Corpuscular Hemoglobin 30.6 pg (27.0-33.0); Mean Corpuscular Volume 93.8 fL (80.0-98.0); NRBC Abs Auto 0.000 X10*3/uL (0.0-0.012); NRBC Pct Auto 0.0 /100WBC (0.0-0.2); Platelet Count 299 X10*3/uL (160-400); Red Blood Count 3.37 X10*6/uL (4.20-5.50); White Blood Count 5.3 X10*3/uL (4.8-10.8)
--- NOTE | 2025-02-12 22:50 | PC.NURSE ---
pt noted to have SPO2 @ 86% on room air, pt placed on 2L via NC w. improvement to 100%
[2025-02-12 22:59] LABS: Alanine Aminotransferase 25 U/L (0-31); Albumin Level 3.6 g/dL (3.5-5.0); Alkaline Phosphatase 139 U/L (39-117); Anion Gap 16 (12-20); Aspartate Amino Transferase 34 U/L (5-31); Blood Urea Nitrogen 43 mg/dL (9-16); Calcium 8.8 mg/dL (8.4-10.2); Carbon Dioxide 26 mmol/L (22-29); Chloride 99 mmol/L (96-108); Creatinine Clr Calc Pharmacy 23.3; Estimated Glomerular Filt Rate 33; Potassium 3.8 mmol/L (3.3-5.1); Sodium 137 mmol/L (135-145); Total Protein 7.0 g/dL (6.5-8.0)
--- NOTE | 2025-02-12 23:40 | ED.GENADULT ---
HPI - General Adult General Chief complaint: General Medical Stated complaint: lethargy, insomnia, 90%RA, lungs clear, EMS O2 99% Time Seen by Provider: 02/12/25 23:40 History of Present Illness ED Provider: Roosevelt GOMEZ narrative: The patient is an 89-year-old female with a history of dementia who lives at a assisted, [facility]. She has a history of CHF and atrial fibrillation. She is on rivaroxaban. According to the patient's daughter the patient was diagnosed with a UTI several days ago and was placed on cephalexin. For the last 2 days however the patient has seemed much sleepier than usual. This evening the patient's daughter requested the patient be sent to the emergency room because the patient seemed somnolent and had oxygen saturations around 88%. The daughter says that the the patient's room air oxygen saturation is usually 95% on a good day. The patient says that the patient seemed fairly well 3 days ago. She was in her normal state of health and level of function despite the apparent urinary tract infection for which she was receiving cephalexin. The increased sleepiness over the last 48 hours occurred after the patient has been on the cephalexin for a couple of days. Today was the last day of the cephalexin. The patient has not complained of anything other than feeling tired and sleepy. There was no specific complaint of headache, chest pain, shortness of breath, abdominal pain, nausea, vomiting. The patient's daughter says that when the patient has an exacerbation of her CHF the patient will get swollen ankles. There has been no peripheral edema over the last couple of days. Related Data Home Medications ?Medication ?Instructions ?Recorded ?Confirmed travoprost 0.004 % eye drops 1 drp ophthalmic (eye) BEDTIME 06/01/20 01/07/25 acetaminophen 500 mg tablet 1,000 mg PO TID Pain 08/17/21 01/07/25 cholecalciferol (vitamin D3) 25 25 mcg PO DAILY 01/01/23 01/07/25 mcg (1,000 unit) capsule insulin lispro 100 unit/mL 1 sliding scale dose subcut TIDAC 11/17/23 01/07/25 subcutaneous pen (Humalog KwikPen (U-100) Insulin) calcitriol 0.25 mcg capsule 0.25 mcg PO Q48H 04/20/24 01/07/25 melatonin 5 mg capsule 5 mg PO BEDTIME PRN insomnia 05/05/24 01/07/25 bisacodyl 10 mg rectal suppository 10 mg MO DAILY PRN Constipation 07/12/24 01/07/25 magnesium hydroxide 400 mg/5 mL 30 ml PO DAILY PRN Constipation 07/12/24 01/07/25 oral suspension (Milk of Magnesia) sennosides 8.6 mg-docusate sodium 1 tab-cap PO BID 07/12/24 01/07/25 50 mg tablet (Senna with Docusate Sodium) sodium phosphates 19 gram-7 118 ml MO DAILY PRN Constipation 07/12/24 01/07/25 gram/118 mL enema (Fleet Enema) vit C 250 mg-vit E 90 mg-zinc 40 1 tab PO DAILY 07/12/24 01/07/25 mg-copper 1 fq-vrfboi-blaliv capsule (PreserVision AREDS-2) guaifenesin 400 mg tablet 400 mg PO Q6H PRN Cough/Nasal 09/22/24 01/07/25 Congestion ipratropium 0.5 mg-albuterol 3 mg 3 ml inhalation Q6H PRN 09/22/24 01/07/25 (2.5 mg base)/3 mL nebulization Non-Productive Cough soln amiodarone 200 mg tablet 100 mg PO DAILY 01/07/25 levothyroxine 150 mcg tablet 175 mcg PO DAILY@0600 01/07/25 01/07/25 Previous Rx's ?Medication ?Instructions ?Recorded flash glucose sensor (FreeStyle #1 ea 05/23/23 Madeline 14 Day Sensor kit) flash glucose sensor (FreeStyle #6 ea 05/23/23 Madeline 14 Day Sensor kit) pen needle, diabetic 32 gauge x #400 ea 09/17/23 (BD Eveline 2nd Gen Pen Needle) lactulose 10 gram/15 mL oral 30 ml PO DAILY PRN for 02/01/24 solution constipation #946 mL simvastatin 10 mg tablet 10 mg PO BEDTIME #90 tabs 06/16/24 insulin glargine U-300 conc 300 10 unit (0.0333 mL) subcut DAILY 07/14/24 unit/mL (1.5 mL) subcutaneous pen #4.5 mL (Togaurav SoloStar U-300 Insulin) metoprolol succinate 100 mg 100 mg PO DAILY 90 days #90 tabs 07/22/24 tablet,extended release 24 hr rivaroxaban 15 mg tablet (Xarelto) 15 mg PO DAILY@1700 #90 tabs 09/24/24 furosemide 20 mg tablet (Lasix) 20 mg PO QPM #30 tabs 12/05/24 furosemide 40 mg tablet (Lasix) 40 mg PO QAM #30 tabs 12/05/24 Allergies Allergy/AdvReac Type Severity Reaction Status Date / Time codeine Allergy Intermediate TACHYCARDIA Verified 02/12/25 22:15 nitrofurantoin (Macrobid) Allergy Unknown confusion Verified 02/12/25 22:15 pravastatin Allergy Unknown Unknown Verified 02/12/25 22:15 rosuvastatin (Crestor) Allergy Unknown Unknown Verified 02/12/25 22:15 Sulfa (Sulfonamide Allergy Unknown unknown Verified 02/12/25 22:15 Antibiotics) sulfamethoxazole (From Allergy Unknown Unknown Verified 02/12/25 22:15 Bactrim) trimethoprim (From Bactrim) Allergy Unknown Unknown Verified 02/12/25 22:15 amlodipine AdvReac Intermediate leg Verified 02/12/25 22:15 swelling digoxin AdvReac Intermediate Confusion Verified 02/12/25 22:15 [facility] Past Medical History Medical History (Updated 02/13/25 @ 04:26 by Jai Albert MD) Pyuria Pleural effusion Pleural effusion Congestive heart failure Chronic combined systolic and diastolic CHF (congestive heart failure) Hypothyroidism Constipation Transaminitis Congestive heart failure Ulcer of right ankle Recurrent UTI Urinary tract infection with fever Persistent atrial fibrillation Left thigh pain Abdominal mass, LUQ (left upper quadrant) Iliotibial band syndrome of left side UTI (urinary tract infection) Herpes zoster Orthostatic hypotension Acute hyponatremia Weakness COVID-19 Breast asymmetry Atrial fibrillation with rapid ventricular response Hyperkalemia Essential hypertension Atherosclerotic cardiovascular disease Chronic heart failure with preserved ejection fraction (HFpEF) Iliotibial band syndrome of right side Disc degeneration, lumbar Cognitive dysfunction 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 Atrial fibrillation Osteopenia Hypothyroid Spinal stenosis of lumbar region Degenerative disc disease, lumbar Type 2 diabetes mellitus with hyperglycemia Surgical History (Updated 12/13/24 @ 00:01 by Sarah Cohen) History of removal of cyst History of appendectomy History of eye surgery History of cataract surgery History of cholecystectomy History of section History of knee replacement History of hip replacement Family History Family History Father CVD (cardiovascular disease) Mother CVD (cardiovascular disease) Stroke Social History Social History Household Members: Other Household Members Other:: son comes 3 days a week, daughter lives 5 minutes away visits frequently Housing: [facility] Do you presently have visiting nurse or other home services: Yes Alcohol intake: never Comment: 1:1 sitter at bedside Patient Tobacco Use Status: Former Tobacco user Tobacco use type: Cigarette Years Smoked: <1 e-Cigarette/Vaping Use: Former Use Second Hand Smoke Exposure: No Advance Directives: Yes Advance Directives on File: Yes Advance Directives Date on File: 08/29/21 service: No Current occupational status: retired Cognitive needs: Yes (Walker) Hearing needs: No Vision needs: Yes Physical Exam ED Vital Signs: Vital Signs - 24 hr 02/12/25 22:04 02/13/25 00:28 02/13/25 00:38 Temperature 98.3 F 97.6 F Pulse Rate 74 72 Respiratory Rate 16 11 L Blood Pressure 157/76 H Pulse Oximetry 95 95 Oxygen Delivery Method Room Air Nasal Cannula Oxygen Flow Rate 2 02/13/25 02:45 Temperature Pulse Rate 72 Respiratory Rate 12 Blood Pressure 154/61 H Pulse Oximetry 100 Oxygen Delivery Method Nasal Cannula Oxygen Flow Rate 2 BMI result Body Mass Index 31.2 Const Other: The patient is a chronically ill-appearing 89-year-old lady who seemed very fatigued and seemed to be sleeping. She would arouse briefly with loud verbal stimuli. She did not seem in acute discomfort or respiratory distress. HENMT Other: The face is symmetrical. ?Mucous membranes moist. Eyes General: appearance normal, both eyes and all related structures Neck Other: No obvious JVD Resp Other: No obvious increased work of breathing. I felt there were crackles at the left base. Cardio Other: The patient has a regular rate but an irregular rhythm. GI Other: Abdomen is soft and nontender Skin Other: Skin is pale and dry. Neuro Other: The patient was drowsy and sleepy. She aroused with verbal stimuli and would answer simple questions but continued to seem quite sleepy and with a somewhat depressed level of alertness. However her face seems symmetrical, her eyes seemed symmetrical, and her speech seemed fairly clear. She seemed to have symmetrical tone in her extremities. No obvious localizing or lateralizing findings. Extrem Other: No peripheral edema Medications Administered Discontinued Medications Generic Name Dose Route Start Last Admin Trade Name Debbie PRN Reason Stop Dose Admin Ceftriaxone Sodium 1 gm/ 50 mls @ 100 mls/hr 02/13/25 01:45 02/13/25 02:40 Sodium Chloride IV 02/13/25 02:14 Infused ONCE ONE Infusion Doxycycline Hyclate 100 mg/ 250 mls @ 166.67 mls/hr 02/13/25 01:46 02/13/25 04:51 Sodium Chloride IV 02/13/25 03:15 Infused ONCE ONE Infusion Medical Decision Making Medical Decision Making [facility] Narrative: The patient is an 89-year-old woman who lives at a assisted. She has a history of dementia. She has just finished a 7 day course of cephalexin for a possible UTI. No information about the urine testing is available. She presents with a 48 hour history of significant fatigue and a decreased level of alertness. Also she has lower than usual oxygen saturations. She has not had any fever. Here in the emergency room I thought that perhaps she might be hypercarbic but her venous blood gas did not bear that out. An exacerbation of her chronic congestive heart failure was also possible but her extremities showed no peripheral edema. Her daughter says that the patient is typically edematous when she is having problems with the congestive heart failure. With regard to the question of a possible infectious process the patient has not had a fever and has a normal rectal temperature here. She has a normal white count and no left shift on her differential. However her chest x-ray, which is abnormal, looks to me possibly more like an right lower lobe pneumonia than congestive heart failure. Also her urinalysis is potentially consistent with a UTI. Blood cultures and a lactate were obtained. The lactate was normal. She was treated empirically with IV ceftriaxone and doxycycline. Since it was not entirely clear that she has a an infectious etiology for her altered mental status we also obtained a head CT (she is on chronic anticoagulation for atrial fibrillation) and this was negative. The patient was admitted to the hospitalist service for further care. Lab Data 02/12/25 22:36 02/12/25 22:36 Labs: Lab Results 02/12/25 02/13/25 02/13/25 Range/Units 22:36 00:34 00:40 WBC 5.3 (4.8-10.8) X10*3/uL RBC 3.37 L (4.20-5.50) X10*6/uL Hgb 10.3 L (12.0-16.0) g/dl Hct 31.6 L (37.0-47.0) % MCV 93.8 (80.0-98.0) fL MCH 30.6 (27.0-33.0) pg MCHC 32.6 (31.0-35.0) g/dl RDW 16.2 H (11.0-16.0) % Plt Count 299 (160-400) X10*3/uL MPV 9.8 (9.4-12.3) fL Immature Gran % (Auto) 1.3 H (0.0-0.4) % Neut % (Auto) 47.9 (45-73) % Lymph % (Auto) 22.3 (20-40) % Bullock % (Auto) 13.3 H (2-11) % Eos % (Auto) 13.5 H (0-4) % Baso % (Auto) 1.7 (0-2) % Lymph # (Auto) 1.2 (1.2-4.9) X10*3/uL [place]ock # (Auto) 0.7 (0.1-1.2) X10*3/uL Eos # (Auto) 0.7 H (0.0-0.4) X10*3/uL Baso # (Auto) 0.1 (0.0-0.2) X10*3/uL Abs Immat Gran (auto) 0.07 H (0.00-0.03) X10*3/uL Absolute Neuts (auto) 2.6 (2.0-8.3) x10*3/uL Absolute Nucleated RBC 0.000 (0.0-0.012) X10*3/uL Nucleated RBC % (auto) 0.0 (0.0-0.2) /100WBC VBG pH 7.45 H (7.32-7.43) VBG pCO2 41 mmHg VBG pO2 75 mmHg VBG HCO3 29 H (22-26) mmol/L VBG O2 Saturation 92.0 % VBG Base Excess 4.8 mmol/L Sodium 137 (135-145) mmol/L Potassium 3.8 (3.3-5.1) mmol/L Chloride 99 (96-108) mmol/L Carbon Dioxide 26 (22-29) mmol/L Anion Gap 16 (12-20) BUN 43 H (9-16) mg/dL Creatinine 1.48 H (0.5-1.4) mg/dL Estim Creat Clear Calc 23.3 Estimated GFR 33 Random Glucose 257 H (60-115) mg/dL Lactic Acid (0.5-2.0) mmol/L Calcium 8.8 (8.4-10.2) mg/dL Magnesium 2.3 (1.6-2.6) mg/dL Total Bilirubin 0.3 (0.0-1.0) mg/dL AST 34 H (5-31) U/L ALT 25 (0-31) U/L Alkaline Phosphatase 139 H (39-117) U/L Ammonia 19 (13-55) umol/L Troponin I High Sens 17.4 H D 10.3 (<3.5-17.0) ng/L C-Reactive Protein 8.06 H (< or = 0.50) mg/dL NT-Pro-B Natriuret Pep 6070.1 H (<300) pg/mL Total Protein 7.0 (6.5-8.0) g/dL Albumin 3.6 (3.5-5.0) g/dL TSH 8.29 H (0.32-4.0) uIU/mL Urine Color Urine Appearance Urine pH (5.0-9.0) Ur Specific [place] (1.005-1.025) Urine Protein (Neg-Trace) mg/dL Urine Glucose (UA) (Negative) mg/dL Urine Ketones (Negative) mg/dL Urine Blood (Negative) Urine Nitrite (Negative) Ur Leukocyte Esterase (Negative) Urine RBC (0-2) /HPF Urine WBC (0-5) /HPF Ur Squamous Epith Cells (0-2) /HPF Urine Bacteria (None Seen) Hyaline Casts (0-2) /LPF Urine Yeast Influenza Type A (PCR) NEGATIVE (Negative) Influenza Type B (PCR) NEGATIVE (Negative) RSV RNA Qual (PCR) NEGATIVE (Negative) SARS-CoV-2 RNA (RT-PCR) NEGATIVE (Negative) 02/13/25 02/13/25 Range/Units 01:19 03:27 WBC (4.8-10.8) X10*3/uL RBC (4.20-5.50) X10*6/uL Hgb (12.0-16.0) g/dl Hct (37.0-47.0) % MCV (80.0-98.0) fL MCH (27.0-33.0) pg MCHC (31.0-35.0) g/dl RDW (11.0-16.0) % Plt Count (160-400) X10*3/uL MPV (9.4-12.3) fL Immature Gran % (Auto) (0.0-0.4) % Neut % (Auto) (45-73) % Lymph % (Auto) (20-40) % Bullock % (Auto) (2-11) % Eos % (Auto) (0-4) % Baso % (Auto) (0-2) % Lymph # (Auto) (1.2-4.9) X10*3/uL [place] # (Auto) (0.1-1.2) X10*3/uL Eos # (Auto) (0.0-0.4) X10*3/uL Baso # (Auto) (0.0-0.2) X10*3/uL Abs Immat Gran (auto) (0.00-0.03) X10*3/uL Absolute Neuts (auto) (2.0-8.3) x10*3/uL Absolute Nucleated RBC (0.0-0.012) X10*3/uL Nucleated RBC % (auto) (0.0-0.2) /100WBC VBG pH (7.32-7.43) VBG pCO2 mmHg VBG pO2 mmHg VBG HCO3 (22-26) mmol/L VBG O2 Saturation % VBG Base Excess mmol/L Sodium (135-145) mmol/L Potassium (3.3-5.1) mmol/L Chloride (96-108) mmol/L Carbon Dioxide (22-29) mmol/L Anion Gap (12-20) BUN (9-16) mg/dL Creatinine (0.5-1.4) mg/dL Estim Creat Clear Calc Estimated GFR Random Glucose (60-115) mg/dL Lactic Acid 0.9 (0.5-2.0) mmol/L Calcium (8.4-10.2) mg/dL Magnesium (1.6-2.6) mg/dL Total Bilirubin (0.0-1.0) mg/dL AST (5-31) U/L ALT (0-31) U/L Alkaline Phosphatase (39-117) U/L Ammonia (13-55) umol/L Troponin I High Sens (<3.5-17.0) ng/L C-Reactive Protein (< or = 0.50) mg/dL NT-Pro-B Natriuret Pep (<300) pg/mL Total Protein (6.5-8.0) g/dL Albumin (3.5-5.0) g/dL TSH (0.32-4.0) uIU/mL Urine Color Yellow Urine Appearance Clear Urine pH 5.5 (5.0-9.0) Ur Specific [place] 1.015 (1.005-1.025) Urine Protein 30 (1+) H (Neg-Trace) mg/dL Urine Glucose (UA) 100 H (Negative) mg/dL Urine Ketones Negative (Negative) mg/dL Urine Blood Negative (Negative) Urine Nitrite Negative (Negative) Ur Leukocyte Esterase Moderate (2+) H (Negative) Urine RBC 0-2 (0-2) /HPF Urine WBC 21-50 H (0-5) /HPF Ur Squamous Epith Cells 0-2 (0-2) /HPF Urine Bacteria None Seen (None Seen) Hyaline Casts 0-2 (0-2) /LPF Urine Yeast Present Influenza Type A (PCR) (Negative) Influenza Type B (PCR) (Negative) RSV RNA Qual (PCR) (Negative) SARS-CoV-2 RNA (RT-PCR) (Negative) Discharge Plan Discharge Clinical Impression: Fatigue, Hypoxia Patient Disposition: Admitted As Inpatient
--- NOTE | 2025-02-12 23:56 | ECG_ITS ---
Test Reason : AMS Blood Pressure : */* mmHG Vent. Rate : 78 BPM Atrial Rate : * BPM P-R Int : * ms QRS Dur : 114 ms QT Int : 430 ms P-R-T Axes : * -59 30 degrees QTcB Int : 490 ms Atrial fibrillation Left axis deviation Minimal voltage criteria for LVH, may be normal variant ( [place] product ) Nonspecific ST abnormality Prolonged QT Abnormal ECG When compared with ECG of 30-Nov-2024 11:05, No significant change was found Referred By: Jai Albert Electronically Signed By: Ulises Talavera
[2025-02-13] VITALS (11 sets, daily range): BP systolic 142–164; BP diastolic 59–98; PULSE 72–99; RESP 11–18; TEMP 35.8–36.9; O2SAT 92–100; BMI 29.7
[2025-02-13 00:13] LABS: Troponin-I High Sensitivity 17.4 ng/L (<3.5-17.0)
[2025-02-13 00:15] LABS: Magnesium 2.3 mg/dL (1.6-2.6)
[2025-02-13 00:30] LABS: Thyroid Stimulating Hormone 8.29 uIU/mL (0.32-4.0)
[2025-02-13 00:46] LABS: Venous Blood Gas Refer to POC result
[2025-02-13 00:48] LABS: VBG HCO3 29 mmol/L (22-26); VBG O2 % Saturation 92.0 %
[2025-02-13 01:01] LABS: Ammonia 19 umol/L (13-55)
[2025-02-13 01:02] LABS: Troponin-I High Sensitivity 10.3 ng/L (<3.5-17.0)
[2025-02-13 01:16] LABS: Resp Syncy Virus RNA Qual PCR NEGATIVE (Negative); SARS COV2 PCR INHOUSE NEGATIVE (Negative)
--- NOTE | 2025-02-13 03:30 | PC.NURSE ---
at approximately this time, pt was straight cathed in order to obatin urine sample, sample was obtained and sent to the lab, pt tolerated the procedure well, forest technology professor and daughter at the bedside during time of procedure
[2025-02-13 03:39] LABS: Appearance Urine Clear; Glucose Urine UA 100 mg/dL (Negative); PH 5.5 (5.0-9.0); Specific Gravity - Urine 1.015 (1.005-1.025); UMIC TRIGGER UACC YES
[2025-02-13 03:46] LABS: UACC Culture Trigger YES
--- NOTE | 2025-02-13 04:29 | PM.IMHP ---
History of Present Illness Date of Service: 02/13/25 Chief Complaint: Confusion 89-year-old female with a past medical history of HTN, HLD, CHF, dementia, shelter resident, CKD, JADYN, CAD, hypothyroidism, diabetes,Presented to the hospital today with a chief complaint of generalized weakness and tiredness. Has been extremely sleepy for the past couple days for family. Patient was also saturating 88% at room air. At baseline patient does not use home oxygen. Denies having any fevers. Denies patient complaining of any pain. Review of all other systems is limited. ER course: Per ER team, patient on presentation noted to have interstitial edema versus infiltrate on the chest x-ray. Placed on supplemental oxygen; concern for possible CHF. Urinalysis abnormal consistent with UTI. Given ceftriaxone. Creatinine slightly elevated compared to her baseline. CT head did not show any acute findings. Blood gas appears compensated. [facility] Medical History (Updated 02/13/25 @ 04:26 by Jai Albert MD) Pyuria Pleural effusion Pleural effusion Congestive heart failure Chronic combined systolic and diastolic CHF (congestive heart failure) Hypothyroidism Constipation Transaminitis Congestive heart failure Ulcer of right ankle Recurrent UTI Urinary tract infection with fever Persistent atrial fibrillation Left thigh pain Abdominal mass, LUQ (left upper quadrant) Iliotibial band syndrome of left side UTI (urinary tract infection) Herpes zoster Orthostatic hypotension Acute hyponatremia Weakness COVID-19 Breast asymmetry Atrial fibrillation with rapid ventricular response Hyperkalemia Essential hypertension Atherosclerotic cardiovascular disease Chronic heart failure with preserved ejection fraction (HFpEF) Iliotibial band syndrome of right side Disc degeneration, lumbar Cognitive dysfunction 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 Atrial fibrillation Osteopenia Hypothyroid Spinal stenosis of lumbar region Degenerative disc disease, lumbar Type 2 diabetes mellitus with hyperglycemia Family History Father CVD (cardiovascular disease) Mother CVD (cardiovascular disease) Stroke Surgical History (Updated 12/13/24 @ 00:01 by Sarah Cohen) History of removal of cyst History of appendectomy History of eye surgery History of cataract surgery History of cholecystectomy History of section History of knee replacement History of hip replacement Social History Household Members: Other Household Members Other:: son comes 3 days a week, daughter lives 5 minutes away visits frequently Housing: Alf Do you presently have visiting nurse or other home services: Yes Alcohol intake: never Comment: 1:1 sitter at bedside Patient Tobacco Use Status: Former Tobacco user Tobacco use type: Cigarette Years Smoked: <1 e-Cigarette/Vaping Use: Former Use Second Hand Smoke Exposure: No Advance Directives: Yes Advance Directives on File: Yes Advance Directives Date on File: 08/29/21 service: No Current occupational status: retired Cognitive needs: Yes (Walker) Hearing needs: No Vision needs: Yes Meds Allergies Allergy/AdvReac Type Severity Reaction Status Date / Time codeine Allergy Intermediate TACHYCARDIA Verified 02/12/25 22:15 nitrofurantoin (Macrobid) Allergy Unknown confusion Verified 02/12/25 22:15 pravastatin Allergy Unknown Unknown Verified 02/12/25 22:15 rosuvastatin (Crestor) Allergy Unknown Unknown Verified 02/12/25 22:15 Sulfa (Sulfonamide Allergy Unknown unknown Verified 02/12/25 22:15 Antibiotics) sulfamethoxazole (From Allergy Unknown Unknown Verified 02/12/25 22:15 Bactrim) trimethoprim (From Bactrim) Allergy Unknown Unknown Verified 02/12/25 22:15 amlodipine AdvReac Intermediate leg Verified 02/12/25 22:15 swelling digoxin AdvReac Intermediate Confusion Verified 02/12/25 22:15 Home Medications ?Medication ?Instructions ?Recorded ?Confirmed ?Last Taken ?Type travoprost 0.004 % eye drops 1 drp ophthalmic (eye) BEDTIME 06/01/20 01/07/25 11/16/23 History acetaminophen 500 mg tablet 1,000 mg PO TID Pain 08/17/21 01/07/25 08/16/21 History cholecalciferol (vitamin D3) 25 25 mcg PO DAILY 01/01/23 01/07/25 04/19/24 History mcg (1,000 unit) capsule insulin lispro 100 unit/mL 1 sliding scale dose subcut TIDAC 11/17/23 01/07/25 04/19/24 History subcutaneous pen (Humalog KwikPen (U-100) Insulin) calcitriol 0.25 mcg capsule 0.25 mcg PO Q48H 04/20/24 01/07/25 04/19/24 History melatonin 5 mg capsule 5 mg PO BEDTIME PRN insomnia 05/05/24 01/07/25 Unknown History bisacodyl 10 mg rectal suppository 10 mg WI DAILY PRN Constipation 07/12/24 01/07/25 Unknown History magnesium hydroxide 400 mg/5 mL 30 ml PO DAILY PRN Constipation 07/12/24 01/07/25 Unknown History oral suspension (Milk of Magnesia) sennosides 8.6 mg-docusate sodium 1 tab-cap PO BID 07/12/24 01/07/25 Unknown History 50 mg tablet (Senna with Docusate Sodium) sodium phosphates 19 gram-7 118 ml WI DAILY PRN Constipation 07/12/24 01/07/25 Unknown History gram/118 mL enema (Fleet Enema) vit C 250 mg-vit E 90 mg-zinc 40 1 tab PO DAILY 07/12/24 01/07/25 Unknown History mg-copper 1 ma-jicizw-phsvtq capsule (PreserVision AREDS-2) guaifenesin 400 mg tablet 400 mg PO Q6H PRN Cough/Nasal 09/22/24 01/07/25 Unknown History Congestion ipratropium 0.5 mg-albuterol 3 mg 3 ml inhalation Q6H PRN 09/22/24 01/07/25 Unknown History (2.5 mg base)/3 mL nebulization Non-Productive Cough soln amiodarone 200 mg tablet 100 mg PO DAILY 01/07/25 Unknown History levothyroxine 150 mcg tablet 175 mcg PO DAILY@0600 01/07/25 01/07/25 Unknown History Physical Exam Vital Signs and Narrative: Vital Signs: Last Vital Signs Temp 97.6 F 02/13/25 00:38 Pulse 72 02/13/25 02:45 Resp 12 02/13/25 02:45 BP 154/61 H 02/13/25 02:45 Pulse Ox 100 02/13/25 02:45 O2 Del Method Nasal Cannula 02/13/25 02:45 O2 Flow Rate 2 02/13/25 02:45 BMI result Body Mass Index 31.2 Gen: Appears be in no acute distress. On supplemental oxygen HEENT: NCAT, Moist mucosa. Pulmonary: Coarse breath sounds CVS: Normal S1-S2 Abdomen: BS+, Soft, Nontender Extremities: Warm well perfused Neuro: Drowsy Moves all extremities equally Results Labs 02/13/25 05:20 02/13/25 05:20 Labs: Laboratory Results - last 24 hr 02/12/25 02/13/25 02/13/25 22:36 00:34 00:40 MCV 93.8 MCH 30.6 MCHC 32.6 RDW 16.2 H Plt Count 299 MPV 9.8 Immature Gran % (Auto) 1.3 H Neut % (Auto) 47.9 Lymph % (Auto) 22.3 [place] % (Auto) 13.3 H Eos % (Auto) 13.5 H Baso % (Auto) 1.7 Lymph # (Auto) 1.2 [place] # (Auto) 0.7 Eos # (Auto) 0.7 H Baso # (Auto) 0.1 Abs Immat Gran (auto) 0.07 H Absolute Neuts (auto) 2.6 Absolute Nucleated RBC 0.000 Nucleated RBC % (auto) 0.0 VBG pH 7.45 H VBG pCO2 41 VBG pO2 75 VBG HCO3 29 H VBG O2 Saturation 92.0 VBG Base Excess 4.8 Anion Gap 16 Estim Creat Clear Calc 23.3 Estimated GFR 33 Random Glucose 257 H Lactic Acid Calcium 8.8 Magnesium 2.3 Total Bilirubin 0.3 AST 34 H ALT 25 Alkaline Phosphatase 139 H Ammonia 19 Troponin I High Sens 17.4 H D 10.3 C-Reactive Protein 8.06 H NT-Pro-B Natriuret Pep 6070.1 H Total Protein 7.0 Albumin 3.6 TSH 8.29 H Urine Color Urine Appearance Urine pH Ur Specific [place] Urine Protein Urine Glucose (UA) Urine Ketones Urine Blood Urine Nitrite Ur Leukocyte Esterase Urine RBC Urine WBC Ur Squamous Epith Cells Urine Bacteria Hyaline Casts Urine Yeast Influenza Type A (PCR) NEGATIVE Influenza Type B (PCR) NEGATIVE RSV RNA Qual (PCR) NEGATIVE SARS-CoV-2 RNA (RT-PCR) NEGATIVE 02/13/25 02/13/25 01:19 03:27 MCV MCH MCHC RDW Plt Count MPV Immature Gran % (Auto) Neut % (Auto) Lymph % (Auto) [place] % (Auto) Eos % (Auto) Baso % (Auto) Lymph # (Auto) [place] # (Auto) Eos # (Auto) Baso # (Auto) Abs Immat Gran (auto) Absolute Neuts (auto) Absolute Nucleated RBC Nucleated RBC % (auto) VBG pH VBG pCO2 VBG pO2 VBG HCO3 VBG O2 Saturation VBG Base Excess Anion Gap Estim Creat Clear Calc Estimated GFR Random Glucose Lactic Acid 0.9 Calcium Magnesium Total Bilirubin AST ALT Alkaline Phosphatase Ammonia Troponin I High Sens C-Reactive Protein NT-Pro-B Natriuret Pep Total Protein Albumin TSH Urine Color Yellow Urine Appearance Clear Urine pH 5.5 Ur Specific [place] 1.015 Urine Protein 30 (1+) H Urine Glucose (UA) 100 H Urine Ketones Negative Urine Blood Negative Urine Nitrite Negative Ur Leukocyte Esterase Moderate (2+) H Urine RBC 0-2 Urine WBC 21-50 H Ur Squamous Epith Cells 0-2 Urine Bacteria None Seen Hyaline Casts 0-2 Urine Yeast Present Influenza Type A (PCR) Influenza Type B (PCR) RSV RNA Qual (PCR) SARS-CoV-2 RNA (RT-PCR) Assessment and Plan (1) Hypoxia: Status: Acute Plan 89-year-old female with a past medical history of HTN, HLD, CHF, dementia, shelter resident, CKD, JADYN, CAD, hypothyroidism, diabetes,Presented to the hospital today with a chief complaint of generalized weakness and tiredness. Noted to be hypoxic. Admitted for further management. UTI: Continue ceftriaxone. Follow up cultures. Toxic metabolic encephalopathy: Supportive care. Aspiration precautions. NPO pending swallow eval. Hypoxia: Likely in the setting of pneumonia/CHF. Placed on supplemental oxygen. Not in respiratory distress. Left lower lobe pneumonia: Patient on ceftriaxone, doxycycline. Follow up cultures. Acute on chronic HFmrEF: We will give the patient on Lasix 40 mg IV x1 followed by continue daily p.o. Lasix. Daily weights and I's and o's Med reconciliation: Resume home medications once med rec is complete by pharmacy in a.m. Mild JAZ on CKD:. Monitor renal function while diuresing. AFib: Rate controlled. To be resumed on home amiodarone, metoprolol DVT prophylaxis: Subcu heparin Code status: DNR/DNI Quality Stroke Does the patient have a stroke diagnosis?: No VTE Prior VTE?: No VTE Risk Level:: Medical - moderate - high VTE Device Contraindication: N/A - Device Ordered VTE Drug Contraindication: N/A - Med Ordered
[2025-02-13 05:24] LABS: MANUAL DIFF FLAG NO
[2025-02-13 05:25] LABS: Hematocrit 33.5 % (37.0-47.0); Hemoglobin 10.7 g/dl (12.0-16.0); Imm Gran Abs Auto 0.02 X10*3/uL (0.00-0.03); Imm Gran Pct Auto 0.4 % (0.0-0.4); Lymphocytes Absolute Auto 0.9 X10*3/uL (1.2-4.9); Mean Corpuscular HGB Conc 31.9 g/dl (31.0-35.0); Mean Corpuscular Hemoglobin 30.7 pg (27.0-33.0); Mean Corpuscular Volume 96.3 fL (80.0-98.0); NRBC Abs Auto 0.000 X10*3/uL (0.0-0.012); NRBC Pct Auto 0.0 /100WBC (0.0-0.2); Platelet Count 262 X10*3/uL (160-400); Red Blood Count 3.48 X10*6/uL (4.20-5.50); White Blood Count 4.8 X10*3/uL (4.8-10.8)
[2025-02-13 05:36] LABS: Anion Gap 13 (12-20); Blood Urea Nitrogen 38 mg/dL (9-16); Calcium 8.3 mg/dL (8.4-10.2); Carbon Dioxide 24 mmol/L (22-29); Chloride 103 mmol/L (96-108); Creatinine Clr Calc Pharmacy 27.9; Estimated Glomerular Filt Rate 41; Potassium 3.7 mmol/L (3.3-5.1); Sodium 136 mmol/L (135-145)
[2025-02-13] MEDS: Furosemide 40 MG/4 ML VIAL IVPUSH (06:34)
[2025-02-13 07:47] LABS: Glucose, Whole Blood 264 mg/dL (60-115)
--- NOTE | 2025-02-13 08:29 | HO.NURTONUR ---
Pt is an 89yo F [facility]. PMH dementia, CHF, HTN, CKD3, JADYN, CAD, DM. Came to ED for GBW and fatigue. Recently dx with UTI and started on abx. Family concerned pt possibly having reaction to abx. On arrival pt was saturating 88% on RA. Pt does not require home O2 at baseline. Pt place on 2LNC. Afebrile. VSS. Labs remarkable for CHF exacerbation. BNP elevated, pleural effusion on CXR. Pt received ceftriaxone after bld cxs obtained. Pt is a/ox3 but forgetful at times. FC. NSR on the monitor. BP stable. Swallow screen performed at bedside. Pt passed and cardiac diet ordered. POC blood glucose ACHS. Requires insulin sliding scale coverage. Voids using purewick. UA sent and consistent with known UTI. Daughter at bedside over night but went home early this am. Will return later today. 22gLAC.
[2025-02-13] MEDS: 0.9 % Sodium Chloride Flush 3 ML SYRINGE IVFLUSH ×2 (08:37→16:45)
--- NOTE | 2025-02-13 11:02 | PHA.MEDREC ---
Addendum entered by Abel Aguiar, PharmD 02/13/25 12:08: MED REC CHECKED BY [facility] Original Note: Pharmacy Consult ? Medication Reconciliation Pharmacy has completed the medication reconciliation. UTILIZED LIST FROM [facility].
--- NOTE | 2025-02-13 12:03 | PC.NURSE ---
Pt weaned off of 2LNC. Satting 96-98% on RA. Speech therapy at bedside for swallow eval. Diet to be changed to ground cardiac diet.
[2025-02-13 12:34] LABS: Glucose, Whole Blood 339 mg/dL (60-115)
--- NOTE | 2025-02-13 13:32 | PM.EVENT ---
Event Note Date of Service: 02/13/25 Event Note: Patient was recently admitted for generalized weakness and hypoxia, found to have left lower lobe pneumonia and UTI. Started on ceftriaxone and doxycycline. Patient at this time states that she is feeling better, however continues with oxygen. Med rec completed. Time Spent With Patient Time: Total time managing care of this patient today ____ minutes.
--- NOTE | 2025-02-13 14:08 | MHC.SL.SWA ---
Speech Pathologist Impression: Mild Oral Phase Dysphagia, Risk of Aspiration Risk of Aspiration Due to: Reduced Cognition, Impulsive Feeding Dysphasia Diet Status: Hx dementia Liquid Consistency and Strategies for Safe Swallow: Liquid Intake Recommendation: Thin Solid Food Consistency: Dietary Recommendations: Grnd/Mech Altered (NDD2) Additional Modifications to Solid Foods: Recommend REGULAR texture diet and THIN liquids, which is patient's baseline diet. Paperwork from [facility] indicates patient was taking her pills CRUSHED in PUREE. Patient will need 1:1 supervision at meal time in setting of dementia, may need assistance with tray set up and cues/re-orientation during feeding. Oral Medication Intake: Whole with Liquid Please contact the pharmacy regarding appropriate crushable or liquid drug formulations that are available whenever modified delivery is recommended. Supervision While Eating and Drinking for Safe Swallow: Direct Supervision (1:1) Recommendation for Speech: Inpatient Speech Therapy Comment: PREFINISH OPERATOR will f/u 1-2x to monitor tolerance of diet Frequency/Duration: Date Range for Service Req: Timeline to reassess: Clinical Pharmacist Clinican/Clinical Fellow: No Supervisory Statement: I have reviewed and agree with the student/clinical fellow's documentation: N/A Speech Language Pathologist: Rosmery Li M.A., CCC-PREFINISH OPERATOR
[2025-02-13 16:33] LABS: Glucose, Whole Blood 168 mg/dL (60-115)
[2025-02-13 20:43] LABS: Glucose, Whole Blood 393 mg/dL (60-115)
[2025-02-13] MEDS: OLANZapine 10 MG VIAL 5 MG IM (23:51)
[2025-02-14] VITALS (8 sets, daily range): BP systolic 120–164; BP diastolic 60–97; PULSE 86–108; RESP 16–20; TEMP 36.1–37.5; O2SAT 91–96
[2025-02-14] MEDS: 0.9 % Sodium Chloride Flush 3 ML SYRINGE IVFLUSH ×2 (05:51→22:08)
[2025-02-14 07:13] LABS: Glucose, Whole Blood 190 mg/dL (60-115)
[2025-02-14] MEDS: Insulin Glargine,Hum.rec.anlog 100 UNIT/ML 10 ML VIAL 8 UNIT SUBCUT (08:17)
[2025-02-14 08:38] LABS: Hematocrit 27.7 % (37.0-47.0); Hemoglobin 9.0 g/dl (12.0-16.0); Mean Corpuscular HGB Conc 32.5 g/dl (31.0-35.0); Mean Corpuscular Hemoglobin 30.5 pg (27.0-33.0); Mean Corpuscular Volume 93.9 fL (80.0-98.0); NRBC Abs Auto 0.000 X10*3/uL (0.0-0.012); NRBC Pct Auto 0.0 /100WBC (0.0-0.2); Platelet Count 312 X10*3/uL (160-400); Red Blood Count 2.95 X10*6/uL (4.20-5.50); White Blood Count 7.2 X10*3/uL (4.8-10.8)
[2025-02-14 08:55] LABS: Anion Gap 16 (12-20); Blood Urea Nitrogen 34 mg/dL (9-16); Calcium 8.6 mg/dL (8.4-10.2); Carbon Dioxide 26 mmol/L (22-29); Chloride 102 mmol/L (96-108); Creatinine Clr Calc Pharmacy 28.7; Estimated Glomerular Filt Rate 44; Potassium 3.7 mmol/L (3.3-5.1); Sodium 140 mmol/L (135-145)
--- NOTE | 2025-02-14 10:47 | MHC.CM.PN ---
IMM 02/14/25, Pt. is confused, has DX of Dementia, HCP is her dtr Yue. Pt. lives at [facility], she uses a W/C, can ambulate with a walker and one assist. DCP: return to SNF via BLS. CM to follow for DC needs.
[2025-02-14 11:21] LABS: Glucose, Whole Blood 295 mg/dL (60-115)
--- NOTE | 2025-02-14 11:45 | HO.PM.IMPN ---
Subjective Subjective Date of Service: 02/14/25 Interval History: Patient seen examined at bedside this morning, patient more alert and oriented than yesterday, is currently being treated for pneumonia and UTI. Review of Systems Review of Systems: Yes all other systems are reviewed and are negative Physical Exam Exam: Exam: General: AxOx2, No acute distress Head: AT/NC ENT: Moist mucous membranes Neck: supple CVS; RRR, S1 S2 normal Lungs: Clear bilateral breath sounds, no wheezes or crackles Abd: Soft non tender, non distended Ext: No edema and no calf tenderness MSK: moving all 4 limbs Skin: No cyanosis or edema Psych: Cooperative with exam Neurology: no focal deficit Vital Signs: Vital Signs: Last Vital Signs Temp 97.9 F 02/14/25 11:41 Pulse 95 02/14/25 11:41 Resp 16 02/14/25 11:41 BP 164/72 H 02/14/25 11:41 Pulse Ox 93 02/14/25 11:41 O2 Del Method Room Air 02/14/25 11:41 O2 Flow Rate 1 02/13/25 06:28 BMI result Body Mass Index 29.7 Objective Data Active Medications Acetaminophen (Acetaminophen 325 Mg Tablet) 650 mg PO Q6H PRN PRN Reason: Pain, Mild 1-3,fever,headache Last Admin: 02/13/25 21:20 Dose: 650 mg Documented By: JULIA Albuterol/Ipratropium (Albuterol/Iprat 2.5/0.5mg 3 Ml Ampul.Neb) 3 ml INHALE Q4H PRN PRN Reason: Shortness of Breath/Wheezing Amiodarone HCl (Amiodarone Hcl 200 Mg Tablet) 100 mg PO DAILY [facility] Last Admin: 02/14/25 08:17 Dose: 100 mg Documented By: FRANCIA Atorvastatin Calcium (Atorvastatin Calcium 10 Mg Tablet) 10 mg PO DAILY [facility] Last Admin: 02/14/25 08:17 Dose: 10 mg Documented By: FRANCIA Calcitriol (Calcitriol 0.25 Mcg Capsule) 0.25 mcg PO Q48H [facility] Last Admin: 02/13/25 15:45 Dose: Not Given Documented By: LOLIS Non-Admin Reason: Med Not Available Calcium Carbonate (Calcium Carbonate 750 Mg Tab.Chew) 750 mg PO Q4H PRN PRN Reason: Heartburn Dextrose (Dextrose 50 % 25 Gm/50 Ml Syringe) 25 gm IVPUSH Q15M PRN; Protocol PRN Reason: per Hypoglycemia Standing Ord. Doxycycline Monohydrate (Doxycycline Monohydrate 100 Mg Capsule) 100 mg PO Q12H [facility] Stop: 02/20/25 11:59 Furosemide (Furosemide 40 Mg Tablet) 40 mg PO DAILY [facility]; Protocol Last Admin: 02/14/25 08:17 Dose: 40 mg Documented By: FRANCIA Glucose (Glucose Gel 15 Gm Gel..Gram.) 15 gm PO Q15M PRN; Protocol PRN Reason: per Hypoglycemia Standing Ord. Ceftriaxone Sodium 1 gm/ (Sodium Chloride) 50 mls @ 100 mls/hr IV Q24H [facility] Last Infusion: 02/14/25 06:18 Dose: Infused Documented By: JULIA Insulin Glargine (Insulin Glargine,Hum.Rec.Anlog 100 Unit/Ml 10 Ml Vial) 8 unit SUBCUT DAILY [facility] Last Admin: 02/14/25 08:17 Dose: 8 unit Documented By: FRANCIA Insulin Human Lispro (Insulin Lispro 100 Unit/Ml 3 Ml Vial) 0 unit SUBCUT QIDACHS [facility]; Protocol Last Admin: 02/14/25 08:17 Dose: 2 unit Documented By: FRANCIA Latanoprost (Latanoprost 0.005 % Ophth Liseth 2.5 Ml Drops) 1 drop EYE-BOTH BEDTIME [facility] Last Admin: 02/13/25 23:07 Dose: Not Given Documented By: JULIA Non-Admin Reason: Med Not Available Levothyroxine Sodium (Levothyroxine Sodium 200 Mcg Tablet) 200 mcg PO DAILY@0600 [facility] Last Admin: 02/14/25 05:54 Dose: 200 mcg Documented By: JULIA Magnesium Hydroxide (Milk Of Magnesia 30 Ml Oral.Susp) 30 ml PO DAILY PRN PRN Reason: Constipation Melatonin (Melatonin 3 Mg Tablet) 6 mg PO BEDTIME PRN PRN Reason: Insomnia Last Admin: 02/13/25 19:34 Dose: 6 mg Documented By: JULIA Rivaroxaban (Rivaroxaban 15 Mg Tablet) 15 mg PO DAILY@1700 [facility] Last Admin: 02/13/25 17:31 Dose: Not Given Documented By: JONELLE Non-Admin Reason: Patient Asleep Senna/Docusate Sodium (Sennosides/Docusate Sodium Tablet) 1 tab PO BID [facility] Last Admin: 02/14/25 08:17 Dose: 1 tab Documented By: FRANCIA Sodium Biphosphate/Sodium Phosphate (Sodium Phosphate,[place]-Dibasic 133 Ml Enema) 118 ml [place] DAILY PRN PRN Reason: Constipation Sodium Chloride (0.9 % Sodium Chloride Flush 3 Ml Syringe) 3 ml IVFLUSH QSHIFT [facility] Last Admin: 02/14/25 08:20 Dose: Not Given Documented By: FRANCIA Non-Admin Reason: See Note Labs 02/14/25 07:45 02/14/25 07:45 Labs: Laboratory Results - last 24 hr 02/13/25 02/13/25 02/13/25 12:31 16:30 20:39 MCV MCH MCHC RDW Plt Count MPV Absolute Nucleated RBC Nucleated RBC % (auto) Anion Gap Estim Creat Clear Calc Estimated GFR POC Glucose 339 H 168 H 393 H* Random Glucose Calcium 02/14/25 02/14/25 02/14/25 07:05 07:45 11:14 MCV 93.9 MCH 30.5 MCHC 32.5 RDW 16.7 H Plt Count 312 MPV 10.3 Absolute Nucleated RBC 0.000 Nucleated RBC % (auto) 0.0 Anion Gap 16 Estim Creat Clear Calc 28.7 Estimated GFR 44 POC Glucose 190 H 295 H Random Glucose 209 H Calcium 8.6 Microbiology Microbiology Results: Microbiology 02/13/25 01:19 Blood Culture - Preliminary Blood - Venous No growth after 24 hours. 02/13/25 01:19 Blood Culture - Preliminary Blood - Venous No growth after 24 hours. Assessment and Plan (1) Acute on chronic heart failure with mildly reduced ejection fraction (HFmrEF): Status: Acute (2) Atrial fibrillation: Status: Acute (3) Type 2 diabetes mellitus with hyperglycemia: Status: Acute (4) Acute respiratory failure with hypoxia: Status: Acute Plan 89-year-old female with a past medical history of HTN, HLD, CHF, dementia, prison resident, CKD, JADYN, CAD, hypothyroidism, diabetes,Presented to the hospital today with a chief complaint of generalized weakness and tiredness. In the ED found to be hypoxic, with labs showing UTI and imaging with left lower lobe pneumonia. Toxic metabolic encephalopathy, likely secondary to UTI and pneumonia Acute hypoxic respiratory failure, likely secondary to pneumonia and fluid overload Left lower lobe pneumonia UTI Acute on chronic HFmrEF -labs and imaging reviewed -status post IV Lasix given, continue with p.o. Lasix at this time. -we will continue with ceftriaxone. Restarted doxycycline, we will adjust medications based on cultures. -continue supplemental oxygen for SpO2 greater than 90%. -daily weights, continue I and O Mild JAZ on CKD, improving:. Monitor renal function while diuresing. AFib, chronic -continue amiodarone, metoprolol DVT prophylaxis: Subcu heparin Code status: DNR/DNI Disposition: All questions and concerns with the patient were answered to satisfaction. All pertinent clinical documents, images and labs were reviewed. DISCLAIMER: This document was created using voice recognition software. Any mistakes in the prescription are unintentional. An attempt was made to focus for accuracy, but to expedite availability, some errors may persist. Please contact with any need for correction or further clarification Total time managing care of this patient today: 35 minutes. Quality Stroke Does the patient have a stroke diagnosis?: No VTE Prior VTE?: No VTE Risk Level:: Medical - moderate - high VTE Device Contraindication: N/A - Device Ordered VTE Drug Contraindication: N/A - Med Ordered
[2025-02-14 16:11] LABS: Glucose, Whole Blood 132 mg/dL (60-115)
[2025-02-14] MEDS: Rivaroxaban 15 MG TABLET PO (16:37)
[2025-02-14 21:04] LABS: Glucose, Whole Blood 368 mg/dL (60-115)
[2025-02-15] VITALS (7 sets, daily range): BP systolic 125–171; BP diastolic 70–90; PULSE 73–99; RESP 16–20; TEMP 36.2–37.1; O2SAT 91–97
[2025-02-15 01:05] LABS: Glucose, Whole Blood 147 mg/dL (60-115)
[2025-02-15 07:21] LABS: Glucose, Whole Blood 215 mg/dL (60-115)
[2025-02-15] MEDS: Insulin Glargine,Hum.rec.anlog 100 UNIT/ML 10 ML VIAL 8 UNIT SUBCUT (08:16)
[2025-02-15 11:25] LABS: Glucose, Whole Blood 185 mg/dL (60-115)
--- NOTE | 2025-02-15 11:53 | P.PNIM_ITS ---
Subjective Subjective Date of Service: 02/15/25 Interval History: Patient seen examined at bedside this morning, patient today is feeling tired, however denies any pain or shortness of breath. Review of Systems Review of Systems: Yes all other systems are reviewed and are negative Physical Exam 2 Exam: Exam: General: SomnolentxOx2, No acute distress Head: AT/NC ENT: Moist mucous membranes Neck: supple CVS; RRR, S1 S2 normal Lungs: Clear bilateral breath sounds, no wheezes or crackles Abd: Soft non tender, non distended Ext: No edema and no calf tenderness MSK: moving all 4 limbs Skin: No cyanosis or edema Psych: Cooperative with exam Neurology: no focal deficit Vital Signs: Vital Signs: Last Vital Signs Temp 98.1 F 02/15/25 11:36 Pulse 84 02/15/25 11:36 Resp 16 02/15/25 11:36 BP 159/88 H 02/15/25 11:36 Pulse Ox 94 02/15/25 11:36 O2 Del Method Room Air 02/15/25 11:36 O2 Flow Rate 1 02/13/25 06:28 BMI result Body Mass Index 29.7 Objective Data Active Medications Acetaminophen (Acetaminophen 325 Mg Tablet) 650 mg PO Q6H PRN PRN Reason: Pain, Mild 1-3,fever,headache Last Admin: 02/15/25 08:25 Dose: 650 mg Documented By: FRANCIA Albuterol/Ipratropium (Albuterol/Iprat 2.5/0.5mg 3 Ml Ampul.Neb) 3 ml INHALE Q4H PRN PRN Reason: Shortness of Breath/Wheezing Amiodarone HCl (Amiodarone Hcl 200 Mg Tablet) 100 mg PO DAILY [facility] Last Admin: 02/15/25 08:17 Dose: 100 mg Documented By: FRANCIA Atorvastatin Calcium (Atorvastatin Calcium 10 Mg Tablet) 10 mg PO DAILY [facility] Last Admin: 02/15/25 08:17 Dose: 10 mg Documented By: FRANCIA Calcitriol (Calcitriol 0.25 Mcg Capsule) 0.25 mcg PO Q48H [facility] Last Admin: 02/13/25 15:45 Dose: Not Given Documented By: LOLIS Non-Admin Reason: Med Not Available Calcium Carbonate (Calcium Carbonate 750 Mg Tab.Chew) 750 mg PO Q4H PRN PRN Reason: Heartburn Dextrose (Dextrose 50 % 25 Gm/50 Ml Syringe) 25 gm IVPUSH Q15M PRN; Protocol PRN Reason: per Hypoglycemia Standing Ord. Doxycycline Monohydrate (Doxycycline Monohydrate 100 Mg Capsule) 100 mg PO Q12H [facility] Stop: 02/20/25 11:59 Last Admin: 02/15/25 00:56 Dose: Not Given Documented By: PERLITA Non-Admin Reason: Patient Asleep Furosemide (Furosemide 40 Mg Tablet) 40 mg PO DAILY [facility]; Protocol Last Admin: 02/15/25 08:17 Dose: 40 mg Documented By: FRANCIA Glucose (Glucose Gel 15 Gm Gel..Gram.) 15 gm PO Q15M PRN; Protocol PRN Reason: per Hypoglycemia Standing Ord. Ceftriaxone Sodium 1 gm/ (Sodium Chloride) 50 mls @ 100 mls/hr IV Q24H [facility] Last Infusion: 02/15/25 05:10 Dose: Infused Documented By: PERLITA Insulin Glargine (Insulin Glargine,Hum.Rec.Anlog 100 Unit/Ml 10 Ml Vial) 8 unit SUBCUT DAILY [facility] Last Admin: 02/15/25 08:16 Dose: 8 unit Documented By: FRANCIA Insulin Human Lispro (Insulin Lispro 100 Unit/Ml 3 Ml Vial) 0 unit SUBCUT QIDACHS [facility]; Protocol Last Admin: 02/15/25 08:17 Dose: 4 unit Documented By: FRANCIA Latanoprost (Latanoprost 0.005 % Ophth Liseth 2.5 Ml Drops) 1 drop EYE-BOTH BEDTIME [facility] Last Admin: 02/14/25 22:05 Dose: Not Given Documented By: PERLITA Non-Admin Reason: Med Not Available Levothyroxine Sodium (Levothyroxine Sodium 200 Mcg Tablet) 200 mcg PO DAILY@0600 [facility] Last Admin: 02/15/25 05:56 Dose: 200 mcg Documented By: PERLITA Magnesium Hydroxide (Milk Of Magnesia 30 Ml Oral.Susp) 30 ml PO DAILY PRN PRN Reason: Constipation Melatonin (Melatonin 3 Mg Tablet) 6 mg PO BEDTIME PRN PRN Reason: Insomnia Last Admin: 02/14/25 22:09 Dose: 6 mg Documented By: PERLITA Rivaroxaban (Rivaroxaban 15 Mg Tablet) 15 mg PO DAILY@1700 [facility] Last Admin: 02/14/25 16:37 Dose: 15 mg Documented By: FRANCIA Senna/Docusate Sodium (Sennosides/Docusate Sodium Tablet) 1 tab PO BID [facility] Last Admin: 02/15/25 08:17 Dose: 1 tab Documented By: FRANCIA Sodium Biphosphate/Sodium Phosphate (Sodium Phosphate,[place]-Dibasic 133 Ml Enema) 118 ml [place] DAILY PRN PRN Reason: Constipation Sodium Chloride (0.9 % Sodium Chloride Flush 3 Ml Syringe) 3 ml IVFLUSH QSHIFT [facility] Last Admin: 02/15/25 08:30 Dose: Not Given Documented By: FRANCIA Non-Admin Reason: Previously Administered Labs 02/14/25 07:45 02/14/25 07:45 Labs: Laboratory Results - last 24 hr 02/14/25 02/14/25 02/15/25 16:06 20:58 00:56 POC Glucose 132 H 368 H* 147 H 02/15/25 02/15/25 07:10 11:17 POC Glucose 215 H 185 H Microbiology Microbiology Results: Microbiology 02/13/25 01:19 Blood Culture - Preliminary Blood - Venous No growth after 48 hours. 02/13/25 01:19 Blood Culture - Preliminary Blood - Venous No growth after 48 hours. 02/13/25 Unknown Urine Culture - Preliminary Urine clean catch - Clean Catch Midstream Culture in progress. Assessment and Plan (1) Acute on chronic heart failure with mildly reduced ejection fraction (HFmrEF): Status: Acute (2) Atrial fibrillation: Status: Acute (3) Acute respiratory failure with hypoxia: Status: Acute Plan 89-year-old female with a past medical history of HTN, HLD, CHF, dementia, fdc resident, CKD, JADYN, CAD, hypothyroidism, diabetes,Presented to the hospital today with a chief complaint of generalized weakness and tiredness. In the ED found to be hypoxic, with labs showing UTI and imaging with left lower lobe pneumonia. Toxic metabolic encephalopathy, likely secondary to UTI and pneumonia Acute hypoxic respiratory failure, likely secondary to pneumonia and fluid overload, improving Left lower lobe pneumonia UTI Acute on chronic HFmrEF -labs and imaging reviewed -status post IV Lasix given, continue with p.o. Lasix at this time. -we will continue with ceftriaxone and doxycycline, we will adjust medications based on cultures. -continue supplemental oxygen for SpO2 greater than 90%. -daily weights, continue I and O Mild JAZ on CKD, improving:. Monitor renal function while diuresing. AFib, chronic -continue amiodarone, metoprolol DVT prophylaxis: Subcu heparin Code status: DNR/DNI Disposition: All questions and concerns with the patient were answered to satisfaction. All pertinent clinical documents, images and labs were reviewed. DISCLAIMER: This document was created using voice recognition software. Any mistakes in the prescription are unintentional. An attempt was made to focus for accuracy, but to expedite availability, some errors may persist. Please contact with any need for correction or further clarification Total time managing care of this patient today: 35 minutes. Quality Stroke Does the patient have a stroke diagnosis?: No VTE Prior VTE?: No VTE Risk Level:: Medical - moderate - high VTE Device Contraindication: N/A - Device Ordered VTE Drug Contraindication: N/A - Med Ordered
[2025-02-15] MEDS: Rivaroxaban 15 MG TABLET PO (16:06)
[2025-02-15] MEDS: Metoprolol Tartrate 12.5 MG HALFTAB PO (16:06)
[2025-02-15 16:16] LABS: Glucose, Whole Blood 181 mg/dL (60-115)
[2025-02-15 20:48] LABS: Glucose, Whole Blood 111 mg/dL (60-115)
[2025-02-15] MEDS: 0.9 % Sodium Chloride Flush 3 ML SYRINGE IVFLUSH (22:13)
[2025-02-16 03:16] VITALS: BP 138/76; PULSE 108; RESP 18; TEMP 36.1; O2SAT 90
[2025-02-16 03:27] LABS: Glucose, Whole Blood 356 mg/dL (60-115)
[2025-02-16 07:02] VITALS: BP 149/69; PULSE 88; RESP 20; TEMP 36.6; O2SAT 97
[2025-02-16 07:26] LABS: Glucose, Whole Blood 186 mg/dL (60-115)
[2025-02-16] MEDS: 0.9 % Sodium Chloride Flush 3 ML SYRINGE IVFLUSH (09:21)
[2025-02-16] MEDS: Metoprolol Succinate ER 100 MG TAB.ER.24H PO (09:22)
[2025-02-16] MEDS: Insulin Glargine,Hum.rec.anlog 100 UNIT/ML 10 ML VIAL 8 UNIT SUBCUT (09:23)
--- NOTE | 2025-02-16 09:26 | P.CDIM_ITS ---
PROVIDER RESPONSE TEXT: To clarify, the appropriate diagnosis supported by the clinical indicators: CKD, please provide stage: 3b QUERY TEXT: PHYSICIAN'S DOCUMENTATION REQUEST Date of Query: 02/16/2025 08:51 AM EST Patient Name: Gerri Sanchez Admit Date: 02/13/2025 Dear Jaime Carter MD, A review of the medical record indicates additional documentation may be needed. Please review below and update the documentation accordingly. Clinical Indicators: Progress note 02/15/25 - Mild JAZ on CKD improving. Monitor renal function while diuresing. Please clarify which of the following accurately represents the Stage of the noted CKD: CKD, please provide stage 1, 2, 3a, 3b, 4 Other specifics to the CKD please specify Other (explain) Clinically unable to determine (explain) Thank you, Tamie Juarez, CCS, CDIS Use of terms such as suspected, likely, concern for, or probable (associated with a specific diagnosis that is being evaluated, monitored, or treated as if it exists) are acceptable and can be coded in the inpatient setting, when documented at the time of discharge. Please use your independent medical judgment in providing your response. THIS QUERY IS PART OF THE PERMANENT MEDICAL RECORD
[2025-02-16] MEDS: Furosemide 40 MG/4 ML VIAL IVPUSH ×2 (09:27→18:32)
--- NOTE | 2025-02-16 10:34 | MHC.CM.PN ---
Per ROUNDS discussion, Patient is not yet medically cleared for dc (IV Diuretics); returning to LTC is the goal and CM will continue to follow.
[2025-02-16 11:04] VITALS: BP 116/59; PULSE 76; RESP 16; TEMP 36.4; O2SAT 96
[2025-02-16 11:16] LABS: Glucose, Whole Blood 378 mg/dL (60-115)
--- NOTE | 2025-02-16 15:04 | P.PNIM_ITS ---
Subjective Subjective Date of Service: 02/16/25 Interval History: Patient seen examined at bedside this morning, patient more alert and oriented, patient states that she wishes to go home, BNP decreased to 3742, continues on diuretic treatment. Patient mentions that she wishes for her to come back from work. Review of Systems Review of Systems: Yes all other systems are reviewed and are negative Physical Exam 2 Exam: Exam: General: AxOx2, No acute distress Head: AT/NC ENT: Moist mucous membranes Neck: supple CVS; RRR, S1 S2 normal Lungs: Clear bilateral breath sounds, no wheezes or crackles Abd: Soft non tender, non distended Ext: No edema and no calf tenderness MSK: moving all 4 limbs Skin: No cyanosis or edema Psych: Cooperative with exam Neurology: no focal deficit Vital Signs: Vital Signs: Last Vital Signs Temp 97.6 F 02/16/25 11:04 Pulse 76 02/16/25 11:04 Resp 16 02/16/25 11:04 BP 116/59 L 02/16/25 11:04 Pulse Ox 96 02/16/25 11:04 O2 Del Method Room Air 02/16/25 11:04 O2 Flow Rate 1 02/13/25 06:28 BMI result Body Mass Index 29.7 Objective Data Active Medications Acetaminophen (Acetaminophen 325 Mg Tablet) 650 mg PO Q6H PRN PRN Reason: Pain, Mild 1-3,fever,headache Last Admin: 02/16/25 00:18 Dose: 650 mg Documented By: PERLITA Albuterol/Ipratropium (Albuterol/Iprat 2.5/0.5mg 3 Ml Ampul.Neb) 3 ml INHALE Q4H PRN PRN Reason: Shortness of Breath/Wheezing Amiodarone HCl (Amiodarone Hcl 200 Mg Tablet) 100 mg PO DAILY [facility] Last Admin: 02/16/25 09:21 Dose: 100 mg Documented By: SANJANA Atorvastatin Calcium (Atorvastatin Calcium 10 Mg Tablet) 10 mg PO DAILY [facility] Last Admin: 02/16/25 09:23 Dose: 10 mg Documented By: SANJANA Calcitriol (Calcitriol 0.25 Mcg Capsule) 0.25 mcg PO Q48H [facility] Last Admin: 02/15/25 14:47 Dose: 0.25 mcg Documented By: HO.PHANLYM Calcium Carbonate (Calcium Carbonate 750 Mg Tab.Chew) 750 mg PO Q4H PRN PRN Reason: Heartburn Dextrose (Dextrose 50 % 25 Gm/50 Ml Syringe) 25 gm IVPUSH Q15M PRN; Protocol PRN Reason: per Hypoglycemia Standing Ord. Doxycycline Monohydrate (Doxycycline Monohydrate 100 Mg Capsule) 100 mg PO Q12H [facility] Stop: 02/20/25 11:59 Last Admin: 02/16/25 11:45 Dose: 100 mg Documented By: DENNYS Furosemide (Furosemide 40 Mg Tablet) 40 mg PO BID@0900,1800 [facility]; Protocol On Hold: 02/16/25 07:35 Resume: 02/18/25 07:35 Last Admin: 02/15/25 16:07 Dose: 40 mg Documented By: FRANCIA Furosemide (Furosemide 40 Mg/4 Ml Vial) 40 mg IVPUSH BID@0900,1800 [facility]; Protocol Stop: 02/18/25 08:59 Last Admin: 02/16/25 09:27 Dose: 40 mg Documented By: SANJANA Glucose (Glucose Gel 15 Gm Gel..Gram.) 15 gm PO Q15M PRN; Protocol PRN Reason: per Hypoglycemia Standing Ord. Ceftriaxone Sodium 1 gm/ (Sodium Chloride) 50 mls @ 100 mls/hr IV Q24H [facility] Last Infusion: 02/16/25 04:19 Dose: Infused Documented By: PERLITA Insulin Glargine (Insulin Glargine,Hum.Rec.Anlog 100 Unit/Ml 10 Ml Vial) 8 unit SUBCUT DAILY [facility] Last Admin: 02/16/25 09:23 Dose: 8 unit Documented By: SANJANA Insulin Human Lispro (Insulin Lispro 100 Unit/Ml 3 Ml Vial) 0 unit SUBCUT QIDACHS [facility]; Protocol Last Admin: 02/16/25 11:45 Dose: 10 unit Documented By: DENNYS Latanoprost (Latanoprost 0.005 % Ophth Liseth 2.5 Ml Drops) 1 drop EYE-BOTH BEDTIME [facility] Last Admin: 02/15/25 20:53 Dose: Not Given Documented By: PERLITA Non-Admin Reason: Med Not Available Levothyroxine Sodium (Levothyroxine Sodium 200 Mcg Tablet) 200 mcg PO DAILY@0600 [facility] Last Admin: 02/16/25 05:13 Dose: 200 mcg Documented By: PERLITA Magnesium Hydroxide (Milk Of Magnesia 30 Ml Oral.Susp) 30 ml PO DAILY PRN PRN Reason: Constipation Melatonin (Melatonin 3 Mg Tablet) 6 mg PO BEDTIME PRN PRN Reason: Insomnia Last Admin: 02/15/25 22:13 Dose: 6 mg Documented By: PERLITA Metoprolol Succinate (Metoprolol Succinate Er 100 Mg Tab.Er.24h) 100 mg PO DAILY [facility]; Protocol Last Admin: 02/16/25 09:22 Dose: 100 mg Documented By: SANJANA Metoprolol Tartrate (Metoprolol Tartrate 12.5 Mg Halftab) 12.5 mg PO DAILY PRN; Protocol PRN Reason: Hypertension Last Admin: 02/15/25 16:06 Dose: 12.5 mg Documented By: FRANCIA Comments: per slime Donaldson to give now Rivaroxaban (Rivaroxaban 15 Mg Tablet) 15 mg PO DAILY@1700 [facility] Last Admin: 02/15/25 16:06 Dose: 15 mg Documented By: FRANCIA Senna/Docusate Sodium (Sennosides/Docusate Sodium Tablet) 1 tab PO BID [facility] Last Admin: 02/16/25 09:23 Dose: 1 tab Documented By: SANJANA Sodium Biphosphate/Sodium Phosphate (Sodium Phosphate,[place]-Dibasic 133 Ml Enema) 118 ml [place] DAILY PRN PRN Reason: Constipation Sodium Chloride (0.9 % Sodium Chloride Flush 3 Ml Syringe) 3 ml IVFLUSH QSHIFT [facility] Last Admin: 02/16/25 09:21 Dose: 3 ml Documented By: SANJANA Labs 02/14/25 07:45 02/14/25 07:45 Labs: Laboratory Results - last 24 hr 02/15/25 02/15/25 02/15/25 14:57 16:12 20:44 POC Glucose 181 H 111 NT-Pro-B Natriuret Pep 3742.8 H 02/16/25 02/16/25 02/16/25 03:22 07:09 11:05 POC Glucose 356 H* 186 H 378 H* NT-Pro-B Natriuret Pep Microbiology Microbiology Results: Microbiology 02/13/25 Unknown Urine Culture - Final Urine clean catch - Clean Catch Midstream Amirah glabrata Assessment and Plan (1) Acute on chronic heart failure with mildly reduced ejection fraction (HFmrEF): Status: Acute (2) Atrial fibrillation: Status: Acute (3) Acute respiratory failure with hypoxia: Status: Acute Plan 89-year-old female with a past medical history of HTN, HLD, CHF, dementia, group home resident, CKD, JADYN, CAD, hypothyroidism, diabetes,Presented to the hospital today with a chief complaint of generalized weakness and tiredness. In the ED found to be hypoxic, with labs showing UTI and imaging with left lower lobe pneumonia. patient with recent BNP 3742. started on IV lasix BID, Toxic metabolic encephalopathy, likely secondary to UTI and pneumonia, improving Acute hypoxic respiratory failure, likely secondary to pneumonia and fluid overload, improving Left lower lobe pneumonia, improving UTI, improving Acute on chronic HFmrEF, improving -labs and imaging reviewed -status post IV Lasix given, will switch to IV lasix 40mg BID -we will continue with ceftriaxone and doxycycline, we will adjust medications based on cultures. -continue supplemental oxygen for SpO2 greater than 90%. -daily weights, continue I and O Mild JAZ on CKD, improving:. Monitor renal function while diuresing. AFib, chronic -continue amiodarone, metoprolol DVT prophylaxis: Subcu heparin Code status: DNR/DNI Disposition: All questions and concerns with the patient were answered to satisfaction. All pertinent clinical documents, images and labs were reviewed. DISCLAIMER: This document was created using voice recognition software. Any mistakes in the prescription are unintentional. An attempt was made to focus for accuracy, but to expedite availability, some errors may persist. Please contact with any need for correction or further clarification Total time managing care of this patient today: 35 minutes. Quality Stroke Does the patient have a stroke diagnosis?: No VTE Prior VTE?: No VTE Risk Level:: Medical - moderate - high VTE Device Contraindication: N/A - Device Ordered VTE Drug Contraindication: N/A - Med Ordered
[2025-02-16 15:17] VITALS: BP 103/66; PULSE 89; RESP 16; TEMP 36.4; O2SAT 95
--- NOTE | 2025-02-16 15:43 | MHC.SL.SWA ---
Speech Pathologist Impression: Mild oropharyngeal dysphagia Risk of Aspiration Due to: recent hypoxia, cognition/confusion Dysphasia Diet Status: Patient comes from LTC at [facility]. Patient was downgraded to ground diet (NDD2) per TERRA[employer] FINISHER HELPER at the facility d/t having trouble managing regular solids. Liquid Consistency and Strategies for Safe Swallow: Liquid Intake Recommendation: Thin Liquid Intake Strategies: Solid Food Consistency: Dietary Recommendations: Grnd/Mech Altered (NDD2) Additional Modifications to Solid Foods: Oral Medication Intake: Whole with Liquid Please contact the pharmacy regarding appropriate crushable or liquid drug formulations that are available whenever modified delivery is recommended. Compensatory Strategies and Precautions to be Taken for Safe Swallow: Patient will need direct supervision and cues for safe feeding behaviors: small bites/sips, chew food well, clear oral cavity before taking next bite, alternate solids/liquids, ensure upright 90 degree position, slow pacing Sitting Upright (90 deg) Small Bites and Sips Alternate Liquids/Solids Rate of Ingestion Change Supervision While Eating and Drinking for Safe Swallow: Direct Supervision (1:1) Foods to Avoid: Swallowing Recommended Treatments: Compens. Strategy Educat. Recommendation for Speech: Inpatient Speech Therapy Comment: Patient met in room for dysphagia tx. Patient given pudding with small colin cracker crumbs. Patient with timely mastication, adequate cohesion and clearance. Patient requiring cueing from both TER[employer] FINISHER HELPER and family (daughter at bedside) to modify self-feeding rate. Patient tolerating current diet of NDD2, Thin liquids. Patient with no s/sx of penetration/aspiration. Recommend CONTINUE diet of NDD2, Thin liquids. Follow-up x1 as patient at same modifications from LTC facility. Diet recommendations and supervision level communicated on whiteboard. Recommend DIRECT supervision as patient with confusion and fast self-feeding rate requiring cues to ensure safety. Frequency/Duration: Follow-up x1 Date Range for Service Req: Timeline to reassess: Scaffold Erector Clinican/Clinical Fellow: No Supervisory Statement: I have reviewed and agree with the student/clinical fellow's documentation: N/A Speech Language Pathologist: Lyndsay Mckeon M.A., [facility]-[employer] FINISHER HELPER
[2025-02-16 16:06] LABS: Glucose, Whole Blood 117 mg/dL (60-115)
[2025-02-16] MEDS: Rivaroxaban 15 MG TABLET PO (18:28)
[2025-02-16 18:32] VITALS: BP 143/63
[2025-02-16 19:59] VITALS: BP 159/70; PULSE 79; RESP 15; TEMP 36.6; O2SAT 94
[2025-02-16 21:33] LABS: Glucose, Whole Blood 310 mg/dL (60-115)
[2025-02-17] VITALS (9 sets, daily range): BP systolic 92–155; BP diastolic 63–91; PULSE 83–94; RESP 15–20; TEMP 36–36.8; O2SAT 94–96
[2025-02-17 07:17] LABS: Anion Gap 14 (12-20); Blood Urea Nitrogen 30 mg/dL (9-16); Calcium 8.9 mg/dL (8.4-10.2); Carbon Dioxide 30 mmol/L (22-29); Chloride 98 mmol/L (96-108); Creatinine Clr Calc Pharmacy 26.4; Estimated Glomerular Filt Rate 40; Potassium 3.6 mmol/L (3.3-5.1); Sodium 138 mmol/L (135-145)
[2025-02-17 07:32] LABS: Glucose, Whole Blood 206 mg/dL (60-115)
[2025-02-17] MEDS: Insulin Glargine,Hum.rec.anlog 100 UNIT/ML 10 ML VIAL 8 UNIT SUBCUT (07:41)
[2025-02-17] MEDS: 0.9 % Sodium Chloride Flush 3 ML SYRINGE IVFLUSH ×3 (07:41→20:49)
[2025-02-17] MEDS: Furosemide 40 MG/4 ML VIAL IVPUSH ×2 (07:42→17:10)
[2025-02-17] MEDS: Metoprolol Succinate ER 100 MG TAB.ER.24H PO (07:43)
[2025-02-17 11:46] LABS: Glucose, Whole Blood 180 mg/dL (60-115)
--- NOTE | 2025-02-17 11:47 | MHC.SL.SWA ---
Speech Pathologist Impression: Mild oropharyngeal dysphagia; WFL for current consistencies Risk of Aspiration Due to: Confusion/Cognition, Hx of dysphagia Dysphasia Diet Status: Recommend CONITNUE with NDD2, Thin liquids with DIRECT SUPERVISION Liquid Consistency and Strategies for Safe Swallow: Liquid Intake Recommendation: Thin Liquid Intake Strategies: Solid Food Consistency: Dietary Recommendations: Grnd/Mech Altered (NDD2) Additional Modifications to Solid Foods: Patient comes from LTC at [facility]. Patient was downgraded to ground diet (NDD2) per FREELANCE [employer] STENOGRAPHER at the facility d/t having trouble managing regular solids Oral Medication Intake: Whole with Liquid Please contact the pharmacy regarding appropriate crushable or liquid drug formulations that are available whenever modified delivery is recommended. Compensatory Strategies and Precautions to be Taken for Safe Swallow: Sitting Upright (90 deg) Small Bites and Sips Alternate Liquids/Solids Rate of Ingestion Change Supervision While Eating and Drinking for Safe Swallow: Direct Supervision (1:1) Foods to Avoid: Swallowing Recommended Treatments: Compens. Strategy Educat. Recommendation for Speech: D/C Comment: Patient seen for follow-up x1/dysphagia tx. Patient met in room and given AM snack of colin cracker crumbs in pudding along with water and alex abran. Patient with timely mastication, adequate cohesion and clearance of ground solids. Patient with throat clear x1, likely d/t fast self-feeding rate and no liquid washes used. Patient with no other overt s/sx of penetration/aspiration. Patient requiring moderate cues to slow self-feeding rate and alternate liquids/solids. Per daughter, requires supervision and cueing at LTC as well. Patient tolerating current diet. Recommend CONTINUE with NDD2, Thin liquids with DIRECT SUPERVISION and medications whole with liquids. Patient at baseline per LTC diet modification recommendations. Patient educated over discharge, showed little understanding. RN with no concerns and in agreement with POC. FREELANCE [employer] STENOGRAPHER no longer warranted at this level of care. Please re-consult if any difficulties/concerns arise. Frequency/Duration: Date Range for Service Req: Timeline to reassess: Bulk Plant Manager Clinican/Clinical Fellow: No Supervisory Statement: I have reviewed and agree with the student/clinical fellow's documentation: N/A Speech Language Pathologist: Lyndsay Mckeon M.A., CCC-FREELANCE [employer] STENOGRAPHER
--- NOTE | 2025-02-17 13:46 | HO.WOUND ---
Wound Consult: Initial 89yr old? female admitted to [facility] on 02/13/25 - See progress notes and H&P for detailed history.? Wound consult placed for groin rash.? Patient agreeable to assessment and photo documentation.? Groin and perineal area assessed for Mild redness - barrier cream already in use along with Pureiwck - suspect topical interventions put in placed aided in healing - no fungal rash noted at this time. Recommend continue with barrier cream and incontinence care. 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 red blanchable tissue not over bony prominence. Recommendations: 1. Turn and Reposition every 2 hours and as needed for patient comfort.? Use pillows or wedges to support off loading positions. 2. Off Load all bony prominences with use of pillows and heel boots if needed.? Apply Preventative foams where needed. ? 3. Monitor for incontinence and moisture control, use barrier creams when needed for prevention and treatment. 4. Provide adequate and supplemental nutrition.? 5. Continue low air loss mattress. 6. When applicable maintain blood glucose levels per Providers order. Perianal amd Perineal - Off Load Pressure with Q2 hr turns and use of pillows - Cleanse with PH balance spray or wipes, pat dry. ?Apply thin layer of barrier cream to affected area.? Apply twice daily and Reapply thin layer PRN after each episode of incontinence. Re-consult wound care Nurse for wound deterioration or wound changes.
--- NOTE | 2025-02-17 14:52 | HO.PM.IMPN ---
Subjective Subjective Date of Service: 02/17/25 Interval History: Patient seen examined at bedside this morning, patient states that she feels okay, continues on IV diuretics at this time, no concerns voiced by the nursing staff. Review of Systems Review of Systems: Yes all other systems are reviewed and are negative Physical Exam Exam: Exam: General: AxOx2, No acute distress Head: AT/NC ENT: Moist mucous membranes Neck: supple CVS; RRR, S1 S2 normal Lungs: Clear bilateral breath sounds, no wheezes or crackles Abd: Soft non tender, non distended Ext: No edema and no calf tenderness MSK: moving all 4 limbs Skin: No cyanosis or edema Psych: Cooperative with exam Neurology: no focal deficit Vital Signs: Vital Signs: Last Vital Signs Temp 97.5 F 02/17/25 11:46 Pulse 86 02/17/25 11:46 Resp 20 02/17/25 11:46 BP 129/66 02/17/25 11:46 Pulse Ox 96 02/17/25 11:46 O2 Del Method Room Air 02/17/25 11:46 O2 Flow Rate 1 02/13/25 06:28 BMI result Body Mass Index 29.7 Objective Data Active Medications Acetaminophen (Acetaminophen 325 Mg Tablet) 650 mg PO Q6H PRN PRN Reason: Pain, Mild 1-3,fever,headache Last Admin: 02/16/25 00:18 Dose: 650 mg Documented By: PERLITA Albuterol/Ipratropium (Albuterol/Iprat 2.5/0.5mg 3 Ml Ampul.Neb) 3 ml INHALE Q4H PRN PRN Reason: Shortness of Breath/Wheezing Amiodarone HCl (Amiodarone Hcl 200 Mg Tablet) 100 mg PO DAILY [facility] Last Admin: 02/17/25 07:43 Dose: 100 mg Documented By: KRUPA Atorvastatin Calcium (Atorvastatin Calcium 10 Mg Tablet) 10 mg PO DAILY [facility] Last Admin: 02/17/25 07:43 Dose: 10 mg Documented By: KRUPA Calcitriol (Calcitriol 0.25 Mcg Capsule) 0.25 mcg PO Q48H [facility] Last Admin: 02/17/25 13:48 Dose: 0.25 mcg Documented By: KRUPA Calcium Carbonate (Calcium Carbonate 750 Mg Tab.Chew) 750 mg PO Q4H PRN PRN Reason: Heartburn Dextrose (Dextrose 50 % 25 Gm/50 Ml Syringe) 25 gm IVPUSH Q15M PRN; Protocol PRN Reason: per Hypoglycemia Standing Ord. Doxycycline Monohydrate (Doxycycline Monohydrate 100 Mg Capsule) 100 mg PO Q12H [facility] Stop: 02/20/25 11:59 Last Admin: 02/17/25 11:48 Dose: 100 mg Documented By: KRUPA Furosemide (Furosemide 40 Mg Tablet) 40 mg PO BID@0900,1800 [facility]; Protocol On Hold: 02/16/25 07:35 Resume: 02/18/25 07:35 Last Admin: 02/15/25 16:07 Dose: 40 mg Documented By: FRANCIA Furosemide (Furosemide 40 Mg/4 Ml Vial) 40 mg IVPUSH BID@0900,1800 [facility]; Protocol Stop: 02/18/25 08:59 Last Admin: 02/17/25 07:42 Dose: 40 mg Documented By: KRUPA Glucose (Glucose Gel 15 Gm Gel..Gram.) 15 gm PO Q15M PRN; Protocol PRN Reason: per Hypoglycemia Standing Ord. Ceftriaxone Sodium 1 gm/ (Sodium Chloride) 50 mls @ 100 mls/hr IV Q24H [facility] Stop: 02/19/25 04:29 Last Infusion: 02/17/25 06:38 Dose: Infused Documented By: AFTAB Insulin Glargine (Insulin Glargine,Hum.Rec.Anlog 100 Unit/Ml 10 Ml Vial) 8 unit SUBCUT DAILY [facility] Last Admin: 02/17/25 07:41 Dose: 8 unit Documented By: KRUPA Insulin Human Lispro (Insulin Lispro 100 Unit/Ml 3 Ml Vial) 0 unit SUBCUT QIDACHS [facility]; Protocol Last Admin: 02/17/25 11:48 Dose: 2 unit Documented By: KRUPA Latanoprost (Latanoprost 0.005 % Ophth Liseth 2.5 Ml Drops) 1 drop EYE-BOTH BEDTIME [facility] Last Admin: 02/16/25 21:00 Dose: Not Given Documented By: AFTAB Non-Admin Reason: Patient Refused Levothyroxine Sodium (Levothyroxine Sodium 200 Mcg Tablet) 200 mcg PO DAILY@0600 [facility] Last Admin: 02/17/25 05:54 Dose: 200 mcg Documented By: HO.NAUMOC Magnesium Hydroxide (Milk Of Magnesia 30 Ml Oral.Susp) 30 ml PO DAILY PRN PRN Reason: Constipation Melatonin (Melatonin 3 Mg Tablet) 6 mg PO BEDTIME PRN PRN Reason: Insomnia Last Admin: 02/15/25 22:13 Dose: 6 mg Documented By: PERLITA Metoprolol Succinate (Metoprolol Succinate Er 100 Mg Tab.Er.24h) 100 mg PO DAILY [facility]; Protocol Last Admin: 02/17/25 07:43 Dose: 100 mg Documented By: KRUPA Metoprolol Tartrate (Metoprolol Tartrate 12.5 Mg Halftab) 12.5 mg PO DAILY PRN; Protocol PRN Reason: Hypertension Last Admin: 02/15/25 16:06 Dose: 12.5 mg Documented By: FRANCIA Comments: per slime Donaldson to give now Rivaroxaban (Rivaroxaban 15 Mg Tablet) 15 mg PO DAILY@1700 [facility] Last Admin: 02/16/25 18:28 Dose: 15 mg Documented By: KAYLAN Senna/Docusate Sodium (Sennosides/Docusate Sodium Tablet) 1 tab PO BID [facility] Last Admin: 02/17/25 07:43 Dose: 1 tab Documented By: KRUPA Sodium Biphosphate/Sodium Phosphate (Sodium Phosphate,[place]-Dibasic 133 Ml Enema) 118 ml [place] DAILY PRN PRN Reason: Constipation Sodium Chloride (0.9 % Sodium Chloride Flush 3 Ml Syringe) 3 ml IVFLUSH QSHIFT [facility] Last Admin: 02/17/25 07:41 Dose: 3 ml Documented By: KRUPA Labs 02/14/25 07:45 02/17/25 06:27 Labs: Laboratory Results - last 24 hr 02/16/25 02/16/25 02/17/25 16:02 21:27 06:27 Hold Purple Top Anion Gap 14 Estim Creat Clear Calc 26.4 Estimated GFR 40 POC Glucose 117 H 310 H Random Glucose 180 H Calcium 8.9 02/17/25 02/17/25 02/17/25 06:28 07:14 11:39 Hold Purple Top SEE NOTE Anion Gap Estim Creat Clear Calc Estimated GFR POC Glucose 206 H 180 H Random Glucose Calcium Microbiology Microbiology Results: Microbiology 02/13/25 Unknown Urine Culture - Final Urine clean catch - Clean Catch Midstream Amirah glabrata Assessment and Plan (1) Acute on chronic heart failure with mildly reduced ejection fraction (HFmrEF): Status: Acute (2) Atrial fibrillation: Status: Acute (3) Type 2 diabetes mellitus with hyperglycemia: Status: Acute Plan 89-year-old female with a past medical history of HTN, HLD, CHF, dementia, chcf resident, CKD, JADYN, CAD, hypothyroidism, diabetes,Presented to the hospital today with a chief complaint of generalized weakness and tiredness. In the ED found to be hypoxic, with labs showing UTI and imaging with left lower lobe pneumonia. patient with recent BNP 3742. started on IV lasix BID, Toxic metabolic encephalopathy, likely secondary to UTI and pneumonia, improving Acute hypoxic respiratory failure, likely secondary to pneumonia and fluid overload, resolved Left lower lobe pneumonia, improving UTI, improving Acute on chronic HFmrEF, improving -labs and imaging reviewed -continue IV lasix 40mg BID, will transition to PO tmrw -we will continue with ceftriaxone w/ EoT on 02/19 and doxycycline w/ EoT 02/20, -continue supplemental oxygen for SpO2 greater than 90%. -daily weights, continue I and O JAZ on CKD, resolved:. Monitor renal function while diuresing. AFib, chronic -continue amiodarone, metoprolol DVT prophylaxis: Subcu heparin Code status: DNR/DNI Disposition: All questions and concerns with the patient were answered to satisfaction. All pertinent clinical documents, images and labs were reviewed. plans on d.c tomorrow DISCLAIMER: This document was created using voice recognition software. Any mistakes in the prescription are unintentional. An attempt was made to focus for accuracy, but to expedite availability, some errors may persist. Please contact with any need for correction or further clarification Total time managing care of this patient today: 35 minutes. Quality Stroke Does the patient have a stroke diagnosis?: No VTE Prior VTE?: No VTE Risk Level:: Medical - moderate - high VTE Device Contraindication: N/A - Device Ordered VTE Drug Contraindication: N/A - Med Ordered
[2025-02-17 16:12] LABS: Glucose, Whole Blood 101 mg/dL (60-115)
[2025-02-17] MEDS: Rivaroxaban 15 MG TABLET PO (17:10)
[2025-02-17 20:37] LABS: Glucose, Whole Blood 164 mg/dL (60-115)
[2025-02-17] MEDS: Latanoprost 0.005 % Ophth Sol 2.5 ML DROPS 1 DROP EYE-BOTH (20:44)
[2025-02-18] VITALS: BP 146/72; PULSE 97; RESP 18; TEMP 36; O2SAT 92
[2025-02-18 02:57] VITALS: BP 122/69; PULSE 80; RESP 18; TEMP 36.6; O2SAT 91
[2025-02-18 07:27] VITALS: BP 133/69; PULSE 94; RESP 18; TEMP 36.3; O2SAT 94
[2025-02-18 07:41] LABS: Glucose, Whole Blood 165 mg/dL (60-115)
[2025-02-18 08:45] VITALS: BP 133/69; PULSE 94
[2025-02-18] MEDS: Metoprolol Succinate ER 100 MG TAB.ER.24H PO (08:45)
[2025-02-18] MEDS: Insulin Glargine,Hum.rec.anlog 100 UNIT/ML 10 ML VIAL 8 UNIT SUBCUT (08:48)
[2025-02-18] MEDS: 0.9 % Sodium Chloride Flush 3 ML SYRINGE IVFLUSH (08:49)
--- NOTE | 2025-02-18 10:39 | MHC.CM.PN ---
Per ROUNDS discussion, Patient is not yet medically cleared for dc (Delirious/pulling on lines);returning to LTC is the goal and CM will continue to follow.
[2025-02-18 10:40] LABS: Anion Gap 16 (12-20); Blood Urea Nitrogen 27 mg/dL (9-16); Calcium 8.8 mg/dL (8.4-10.2); Carbon Dioxide 24 mmol/L (22-29); Chloride 101 mmol/L (96-108); Creatinine Clr Calc Pharmacy 30.0; Estimated Glomerular Filt Rate 46; Potassium 3.8 mmol/L (3.3-5.1); Sodium 137 mmol/L (135-145)
[2025-02-18 10:46] LABS: NT Pro B Type Natriuretic Pept 3235.5 pg/mL (<300)
--- NOTE | 2025-02-18 11:18 | MHC.CM.PN ---
IMM 02/18/25 DELIVERED TO DTR/HCP MEL AT [phone], PER DISCUSSION IMM TO BE LEFT AT BEDSIDE, MEL HESITANT ABOUT PT RETURNING TODAY AND HAD QUESTIONS ABOUT IV ABX AND REQUESTS TO SPEAK TO HOSPITALIST, HOSPITALIST AWARE VIA [facility] BRAVO BOOKED FOR 3PM.
[2025-02-18 11:21] LABS: Glucose, Whole Blood 222 mg/dL (60-115)
--- NOTE | 2025-02-18 11:52 | MHC.CM.PN ---
CM met w/pt's son/hcp Tunde and son Manuelito at bedside, Tunde reports pt's bank needs approval from [employer] for funds to pay for pt's room and board and is hoping that will be done by tomorrow vs Sunday at latest, hospitalist, [facility] updated.
[2025-02-18 11:58] VITALS: BP 136/76; PULSE 84; RESP 18; TEMP 36.1; O2SAT 96
--- NOTE | 2025-02-18 13:11 | P.DS_ITS ---
DS: Providers Provider Date of Service: 02/18/25 Date of admission: 02/13/25 04:27 Date of discharge: 02/18/25 Primary care physician: Allyn Lovelace MD Consults: 02/15/25 23:37 Consult to Wound Care Routine Consulting Provider: [facility] Wound Care Management Reason for consultation: rash inner groin Attending physician on discharge: Kapil Yanez Discharging clinician: Kapil Yanez DS: Diagnosis Discharge Diagnosis (1) Acute on chronic heart failure with mildly reduced ejection fraction (HFmrEF): Status: Acute (2) Atrial fibrillation: Status: Acute (3) Type 2 diabetes mellitus with hyperglycemia: Status: Acute DS: Summary Hospital Course Hospital Course: HPI:89-year-old female with a past medical history of HTN, HLD, CHF, dementia, skilled nursing resident, CKD, JADYN, CAD, hypothyroidism, diabetes,Presented to the hospital today with a chief complaint of generalized weakness and tiredness. Has been extremely sleepy for the past couple days for family. Patient was also saturating 88% at room air. At baseline patient does not use home oxygen. Denies having any fevers. Denies patient complaining of any pain. Review of all other systems is limited. ER course: Per ER team, patient on presentation noted to have interstitial edema versus infiltrate on the chest x-ray. Placed on supplemental oxygen; concern for possible CHF. Urinalysis abnormal consistent with UTI. Given ceftriaxone. Creatinine slightly elevated compared to her baseline. CT head did not show any acute findings. Blood gas appears compensated. Hospital course: 89-year-old female with a past medical history of HTN, HLD, CHF, dementia, skilled nursing resident, CKD, JADYN, CAD, hypothyroidism, diabetes,Presented to the hospital today with a chief complaint of generalized weakness and tiredness. In the ED found to be hypoxic, imaging with left lower lobe pneumonia, question of uti . patient with recent BNP 3742. started on IV lasix BID, IV antibiotics and blood culture urine cultures sent. With the above management patient diuresed well, bnp improved from 6000 to 3200, seems to be improved significantly, currently near her baseline. Blood culture negative, urine culture-Amirah(similar to before-likely colonization, was seen by ID during last admission in November-her urine culture was Amirah at that time to which was thought to be colonization, less likely uti), she denies any urinary symptoms currently. In addition advised Low-sodium diet: less than 2000 mg of sodium daily. Weigh yourself daily and if your weight goes up by more than 3 lb/day or 5 lb/week, then need further adjustment of furosemide dosing. plan: complete ceftin and doxycycline for 2 more days, repeat chest imaging in 3-4 weeks to see resolution pneumonia. lasix adjusted 40 mg bid: CHF education given-if gains weight 2 lb or more in a week-will need outpatient Lasix dosing assessment with PCP. Monitor BMP,bnp closely, consider outpatient cardiology follow-up. Above management discussed with the patient's daughter in detail length she understand and in agreement with the above plan, time spent 50 minutes. Time Attestation Total time managing care of this patient today: 50 mintues. Discharge Coordination Time (in mins): 50 minute. Quality: Safe Use of Opioids Does Pt have an Active Cancer Diagnosis on the Problem List?: No Quality: Stroke Does the patient have a stroke diagnosis?: No Physical Exam Exam: Exam: General: AxOx2, seems at baseline. CVS; RRR, S1 S2 normal Lungs: Clear bilateral breath sounds, no wheezes or crackles Abd: Soft non tender, non distended Ext: No edema and no calf tenderness MSK: moving all 4 limbs Skin: No cyanosis or edema Vital Signs: Vital Signs: Last Vital Signs Temp 97.0 F 02/18/25 11:58 Pulse 84 02/18/25 11:58 Resp 18 02/18/25 11:58 BP 136/76 02/18/25 11:58 Pulse Ox 96 02/18/25 11:58 O2 Del Method Room Air 02/18/25 11:58 O2 Flow Rate 1 02/13/25 06:28 BMI result Body Mass Index 29.7 DS: Data Data Completed and Pending Completed studies during hospitalization [Text1]: Procedures Introduction of Remdesivir Anti-infective into Peripheral Vein, Percutaneous Approach, [employer] 5 (08/17/21) Reposition Right Lower Femur with Intramedullary Internal Fixation Device, Percutaneous Approach (04/19/24) [employer] of Cardiac Rhythm, Single (06/01/20) Transfusion of Nonautologous Red Blood Cells into Peripheral Vein, Percutaneous Approach (04/19/24) Labs on day of discharge: Laboratory Results - last 24 hr 02/17/25 02/17/2525 16:04 20:33 07:26 Hold Purple Top Sodium Potassium Chloride Carbon Dioxide Anion Gap BUN Creatinine Estim Creat Clear Calc Estimated GFR POC Glucose 101 164 H 165 H Random Glucose Calcium NT-Pro-B Natriuret Pep 02/18/25 02/18/25 02/18/25 10:09 10:14 11:13 Hold Purple Top SEE NOTE Sodium 137 Potassium 3.8 Chloride 101 Carbon Dioxide 24 Anion Gap 16 BUN 27 H Creatinine 1.12 Estim Creat Clear Calc 30.0 Estimated GFR 46 POC Glucose 222 H Random Glucose 283 H Calcium 8.8 NT-Pro-B Natriuret Pep 3235.5 H Imaging Chest x-ray: My impression: cxr: 1. Stable gkmty-[id number]-madv-left basilar opacities. No significant interval change compared with the 02/13/2025. Discharge Plan Discharge Anticipated Discharge Date/Time: 02/18/25 12:49 Patient Disposition: Xfer LTC Discharge Diagnosis: sob possible sec to chf and pneumonia Referrals: [facility] [Outside] - 1 Day Referral Note: RESUMPTION OF LTC Allyn Lovelace MD [Primary Care Provider, Medical] - 1 Week Discharge Medications: New furosemide 40 mg Tablet 40 mg PO BID@0900,1800 Qty: 1 0RF Protocol: Hold for SBP< HOLD for SBP < : 90 doxycycline monohydrate 100 mg Capsule 100 mg PO Q12H Qty: 4 0RF cefuroxime axetil 500 mg Tablet 500 mg PO Q12H Qty: 4 0RF melatonin 3 mg Tablet 6 mg PO BEDTIME PRN (Reason: Insomnia) Qty: 1 0RF Continued cholecalciferol (vitamin D3) 25 mcg (1,000 unit) capsule 25 mcg PO DAILY (DME) FreeStyle Madeline 14 Day Sensor Kit See Rx Instructions .ROUTE .MEDSUPPLY Qty: 1 6RF Rx Instructions: Dx: E11.65 As directed, 14 days (DME) FreeStyle Madeline 14 Day Sensor Kit See Rx Instructions .Route Qty: 6 3RF Rx Instructions: As directed lactulose 10 gram/15 mL solution 30 ml PO DAILY PRN (Reason: for constipation) Qty: 946 0RF simvastatin 10 mg tablet 10 mg PO BEDTIME Qty: 90 0RF metoprolol succinate 100 mg tablet extended release 24 hr 100 mg PO DAILY 90 Days Qty: 90 0RF travoprost 0.004 % drops 1 drp ophthalmic (eye) BEDTIME acetaminophen 500 mg Tablet 1,000 mg PO TID insulin lispro [Humalog KwikPen Insulin] 100 unit/mL insulin pen 1 sliding scale dose subcut TIDAC Rx Instructions: 0-99 = no insulin 100-150 = 2 units 151 - 200 = 3 units 201 -250 = 4 units 251 - 300 = 5 units 301 - 350 = 7 units 351 - 400 = 8 units 401 - 450 = 10 units 451- 500 = 11 units 501 + = 15 units sennosides-docusate sodium [Senna with Docusate Sodium] 8.6-50 mg Tablet 1 tab-cap PO BID PreserVision AREDS-2 250-90-40-1 mg Capsule 1 tab PO DAILY magnesium hydroxide [Milk of Magnesia] 400 mg/5 mL Suspension 30 ml PO DAILY PRN (Reason: Constipation) bisacodyl 10 mg Suppository 10 mg NH DAILY PRN (Reason: Constipation) Fleet Enema 19-7 gram/118 mL Enema 118 ml NH DAILY PRN (Reason: Constipation) insulin glargine U-300 conc [Toujeo SoloStar U-300 Insulin] 300 unit/mL (1.5 mL) insulin pen 10 unit subcut DAILY Qty: 4.5 0RF Rx Instructions: or as directed ipratropium-albuterol 0.5 mg-3 mg(2.5 mg base)/3 mL Solution For Nebulization 3 ml INHALATION Q6H PRN (Reason: Non-Productive Cough) guaifenesin [Mucus Relief] 400 mg Tablet 400 mg PO Q6H PRN (Reason: Cough/Nasal Congestion) Xarelto 15 mg Tablet 15 mg PO DAILY@1700 Qty: 90 0RF dextrose [Glucose Gel] 40 % Gel 15 g PO Q15M PRN (Reason: Hypoglycemia) Rx Instructions: FOR BLOOD GLUCOSE 51 TO 70 TREAT IF CONSCIOUS ADMINISTER ORAL NEEDED FOR HYPOGLYCEMIA. dextrose [Glucose Gel] 40 % Gel 15 g PO Q15M PRN (Reason: Hypocalcemia) Rx Instructions: FOR BLOOD GLUCOSE LESS THEN 51, IF CONCIOUS TREAT AND ADMINISTER. levothyroxine 200 mcg Tablet 200 mcg PO DAILY@0600 furosemide 20 mg Tablet 20 mg PO DAILY PRN (Reason: Weight increase of 3lbs.) glucagon 1 mg Recon Soln 1 mg SUBCUT Q15M PRN (Reason: Hypoglycemia) Rx Instructions: until target blood sugar attained metoprolol tartrate 25 mg Tablet 12.5 mg PO DAILY PRN (Reason: Hypertension) Rx Instructions: Give 12.5mg if SBP greater then 180 and distolic greater then 100 as needed for 110. Lactobacillus acidophilus 1 billion cell Tablet 1,000 mmu cells PO DAILY calcitriol 0.25 mcg capsule 0.25 mcg PO Q48H (DME) pen needle, diabetic [BD Eveline 2nd Gen Pen Needle] 32 gauge x 5/32 needle See Rx Instructions .ROUTE .COMPLEX Qty: 400 3RF Dose Instruction: USEN TO INJECT INSULIN FOUR TIMES DAILY Rx Instructions: USEN TO INJECT INSULIN FOUR TIMES DAILY amiodarone 200 mg tablet 100 mg PO DAILY Discontinued furosemide [Lasix] 40 mg tablet 40 mg PO DAILY@0800 furosemide 20 mg tablet 20 mg PO DAILY@1400 melatonin 5 mg capsule 5 mg PO BEDTIME PRN (Reason: insomnia) Discharge Orders: Discharge Order (Routine); Ordered 02/18/25 Ordered By: Kapil Yanez Diet: Advance to usual diet Activity on Discharge: As tolerated Stand Alone Forms: Patient Portal Discharge page Print Language: Citizen [place] Care Plan Goals: complete ceftin and doxycycline for 2 more days lasix adjusted 40 mg bid: CHF education given-if gains weight 2 lb or more in a week-will need outpatient Lasix dosing assessment with PCP. Monitor BMP closely, consider outpatient cardiology follow-up. Health Concerns: As above. Plan of Treatment: As above. Assessment: As above. Patient Instructions: Pneumonia (DC)
== END 2025-02-18 15:50 | DRG 193 ==
LOC: HO.ED 02-13 04:26 → HO.EDOVER 02-13 04:31 → HO.IMC 02-13 15:23
PROVIDERS: Student in an Organized Health Care Education/Training Program; Admitting Provider Hospitalist; Emergency Provider Emergency Medicine; PCP Internal Medicine; Visit Provider Internal Medicine
DX: J18.9 Pneumonia, unspecified organism (principal); G92.8 Other toxic encephalopathy; I50.23 Acute on chronic systolic (congestive) heart failure; J96.01 Acute respiratory failure with hypoxia; I13.0 Hypertensive heart and chronic kidney disease with heart failure and stage 1 through stage 4 chronic kidney disease, or unspecified chronic kidney disease; N17.9 Acute kidney failure, unspecified; I48.20 Chronic atrial fibrillation, unspecified; N18.32 Chronic kidney disease, stage 3b; Z66 Do not resuscitate; E11.22 Type 2 diabetes mellitus with diabetic chronic kidney disease; F03.90 Unspecified dementia, unspecified severity, without behavioral disturbance, psychotic disturbance, mood disturbance, and anxiety; I25.10 Atherosclerotic heart disease of native coronary artery without angina pectoris; G47.33 Obstructive sleep apnea (adult) (pediatric); Z20.822 Contact with and (suspected) exposure to COVID-19; Z87.891 Personal history of nicotine dependence; Z79.4 Long term (current) use of insulin; Z79.01 Long term (current) use of anticoagulants; Z79.899 Other long term (current) drug therapy
CPT/HCPCS: 36415; 70450; 71045; 80048; 80053; 81001; 82140; 82803; 82947; 83605; 83735; 83880; 84443; 84484; 85025; 85027; 86140; 87040; 87086; 87088; 87637; 92526; 92610; 93005; 97162; 99285; J0696; J1271; J1644; J1938; J2359

== ENCOUNTER → 2025-02-12 23:56 | Outpatient (BNV) | payer MEDICARE, SELFPAY | PROVIDERS: Admitting Provider Hospitalist; Emergency Provider Emergency Medicine; PCP Internal Medicine; Visit Provider Internal Medicine Cardiovascular Disease | DX: I48.91 Unspecified atrial fibrillation (principal) | CPT/HCPCS: 93010 ==

== ENCOUNTER → 2025-02-13 04:27 | Outpatient (BNV) | payer MEDICARE, SELFPAY | PROVIDERS: Admitting Provider Hospitalist; Emergency Provider Emergency Medicine; PCP Internal Medicine; Visit Provider Student in an Organized Health Care Education/Training Program | DX: I50.23 Acute on chronic systolic (congestive) heart failure (principal); I48.0 Paroxysmal atrial fibrillation; E11.65 Type 2 diabetes mellitus with hyperglycemia; Z79.4 Long term (current) use of insulin | CPT/HCPCS: 99232 ==

== ENCOUNTER → 2025-02-13 | Outpatient (BNV) | payer MEDICARE, SELFPAY | PROVIDERS: Emergency Provider Emergency Medicine; PCP Internal Medicine; Visit Provider Radiology Diagnostic Radiology | DX: R41.82 Altered mental status, unspecified (principal); I51.7 Cardiomegaly; J81.0 Acute pulmonary edema | CPT/HCPCS: 70450; 71045 ==

== ENCOUNTER 2025-02-24 10:13 | Inpatient (IN) | payer MEDICARE, SELFPAY ==
[2025-02-24] VITALS (10 sets, daily range): BP systolic 130–224; BP diastolic 71–108; PULSE 75–94; RESP 10–18; TEMP 36.1–36.6; O2SAT 91–99; BMI 29.4; BMI 27.1
--- NOTE | ~2025-02-24 | XR_ITS ---
EXAMINATION: XR CHEST CLINICAL INFORMATION: Weakness COMPARISON: February 15, 2025 TECHNIQUE: AP view of the chest was obtained. Portable FINDINGS: Haziness in the right hemithorax confluent in the right lower hemithorax with blunting of the right costophrenic angle. Prominence of the interstitial lung markings bilaterally. Bilateral pulmonary patchy opacities in the perihilar regions and the periphery of the lungs. No pneumothorax. Cardiomediastinal silhouette size is prominent. Calcified plaques in the thoracic aorta. Soft tissue calcifications in the left supraspinatus tendon region. Multilevel thoracolumbar spondylosis. XR/XR chest 1V IMPRESSION: Pulmonary edema and right-sided pleural effusion, moderate volume. Small pericardial effusion cannot be excluded. Electronically signed by: Jose L Cisneros MD 02/24/2025 11:02 AM [facility]
--- NOTE | ~2025-02-24 | CT_ITS ---
EXAMINATION: CT ABDOMEN AND PELVIS WITHOUT AND WITH CONTRAST CLINICAL INFORMATION: Bright red blood per rectum. 89-year-old female. Patient on anticoagulation. COMPARISON: 11/30/2024 CT abdomen pelvis. No prior GI bleeding study. TECHNIQUE: Multidetector volumetric imaging was performed of the abdomen and pelvis before and after the IV administration of 85 mL of Omnipaque 350 intravenous contrast. Acquisitions acquired noncontrast, arterial phase, and 5 minute delay contrast. (Standard GI bleeding study). Sagittal and coronal reformatted images were obtained on the technologist's workstation. This CT examination was performed using dose optimization techniques as appropriate, variously including the following: *Automated exposure control *Adjustment of mA and/or kV according to patient size (this includes techniques or standardized protocols for targeted exams where dose is matched to indication/reason for exam; i.e. extremities or head) *Use of iterative reconstruction technique FINDINGS: LUNG BASES: There is cardiac enlargement. There is a small to moderate right layering pleural effusion. There is discoid type atelectasis of the right middle lobe and within the lingula. There is passive atelectasis of the right lower lobe. A mild degree of interstitial pulmonary edema is not excluded given the appearance. LIVER, GALLBLADDER, AND BILIARY TREE: The liver has a somewhat cirrhotic morphology with macro nodularity and mild heterogeneity of the enhancement pattern. No suspicious focal lesion. No biliary dilatation present. The gallbladder is surgically absent. PANCREAS: Mild atrophy. No discrete focal lesion or inflammation. No ductal dilatation. SPLEEN: Normal. The splenic artery is heavily calcified. ADRENAL GLANDS: There is hyperplasia bilaterally, left greater than right. KIDNEYS AND URETERS: The kidneys are normal in size, shape, and attenuation. Renal hilar vascular calcifications. No hydronephrosis, hydroureter, or calculi seen. No perinephric stranding. BLADDER: Partially obscured by streak artifact from hip hardware. Grossly normal. GASTROINTESTINAL TRACT: Noncontrast examination demonstrates no definitive evidence of active bleeding throughout the colon or rectum. There are a few scattered diverticula present. Arterial phase contrast acquisition demonstrates normal mucosal enhancement of the colon and rectum, without definite arterial focus of bleeding identified. Portions of the rectum are obscured by streak artifact from a left hip prosthesis. Notable enhancement of the gastric mucosa suggesting gastritis. Delayed phase acquisition demonstrates no definite contrast pooling or focal retention to suggest the region of active GI bleeding. There is no evidence of appendicitis. The small bowel is nondilated. The stomach is largely decompressed. The duodenal sweep is normal. ABDOMINAL WALL: There are sequela of intra-abdominal subcutaneous injections in the anterior abdominal wall. There is no significant hernia. There is minimal anasarca in the flank regions. LYMPH NODES: No abnormal lymphadenopathy is present. VASCULAR: There is heavy atheromatous calcification of the aorta and arterial structures. There is no aneurysm identified. PELVIC VISCERA: Senescent uterus present. No adnexal masses. OSSEOUS STRUCTURES: There is no suspicious lytic or blastic bone lesion. Total left hip arthroplasty in place without complication. Intramedullary karen with femoral head compression screw in the right hip. Advanced spondylosis of the imaged spine present. Mild chronic compression deformity of L3 and L4. CT/CT gi bleed abd pel wo/w IVcon IMPRESSION: 1. There is no definite active source for GI bleeding identified. There is mild colonic diverticulosis without evidence of acute diverticulitis. 2. There is notable enhancement of the gastric mucosa, suggesting gastritis. 3. Cirrhotic morphology of the liver without suspicious lesion present. 4. Heavy atheromatous calcification of the arterial structures without aneurysm present. 5. Cardiac enlargement with a small to moderate-sized right layering pleural effusion, and discoid atelectasis in the right middle lobe and lingula. A mild degree of interstitial edema is not excluded in the lung bases. 6. Additional ancillary findings as discussed in the body of the report. Electronically signed by: Narinder Rose MD 02/24/2025 12:45 PM [facility]
--- NOTE | 2025-02-24 10:27 | ED.GIBLEED ---
HPI - GI Bleed General Chief complaint: GI Bleed Stated complaint: BRIGHT RED STOOL Time Seen by Provider: 02/24/25 10:19 Source: patient, family, EMS and old records reviewed Mode of arrival: EMS Limitations: other (Cognitive impairment) History of Present Illness ED Provider: NANCY GOMEZ Narrative: 89-year-old female with past medical history of CHF most recent echo in 2024 shows an EF of 51%, pneumonia, CKD, hyperlipidemia, cognitive impairment, hyponatremia, diabetes, hypothyroidism, JADYN, CAD, UTI, AFib on Xarelto, she is DNR / DNI here with c/o 3 episodes of bright red blood with clots from the rectum this morning. The patient herself states she is fine and has no complaints but she is aware that she was having blood feel her adult brief. On arrival to the ED the brief is full of bright red with clots. Her vital signs are stable. She denies any history of this. She was just admitted here from February 13 until February 18 for acute on chronic CHF, atrial fibrillation, diabetes - she was also discharged home on cefuroxime and doxycycline for possible pneumonia. MD complaint: gross hematochezia Onset (ago): minute(s) (This a.m.) Severity: moderate Relieving factors: none Exacerbating factors: none Context: anticoagulant use Associated symptoms: denies other symptoms Treatments Prior to Arrival: none Related Data Home Medications ?Medication ?Instructions ?Recorded ?Confirmed travoprost 0.004 % eye drops 1 drp ophthalmic (eye) BEDTIME 06/01/20 02/13/25 acetaminophen 500 mg tablet 1,000 mg PO TID Pain 08/17/21 02/13/25 cholecalciferol (vitamin D3) 25 25 mcg PO DAILY 01/01/23 02/13/25 mcg (1,000 unit) capsule insulin lispro 100 unit/mL 1 sliding scale dose subcut TIDAC 11/17/23 02/13/25 subcutaneous pen (Humalog KwikPen (U-100) Insulin) calcitriol 0.25 mcg capsule 0.25 mcg PO Q48H 04/20/24 02/13/25 bisacodyl 10 mg rectal suppository 10 mg NC DAILY PRN Constipation 07/12/24 02/13/25 magnesium hydroxide 400 mg/5 mL 30 ml PO DAILY PRN Constipation 07/12/24 02/13/25 oral suspension (Milk of Magnesia) sennosides 8.6 mg-docusate sodium 1 tab-cap PO BID 07/12/24 02/13/25 50 mg tablet (Senna with Docusate Sodium) sodium phosphates 19 gram-7 118 ml NC DAILY PRN Constipation 07/12/24 02/13/25 gram/118 mL enema (Fleet Enema) vit C 250 mg-vit E 90 mg-zinc 40 1 tab PO DAILY 07/12/24 02/13/25 mg-copper 1 [id number] capsule (PreserVision AREDS-2) guaifenesin 400 mg tablet (Mucus 400 mg PO Q6H PRN Cough/Nasal 09/22/24 02/13/25 Relief) Congestion ipratropium 0.5 mg-albuterol 3 mg 3 ml inhalation Q6H PRN 09/22/24 02/13/25 (2.5 mg base)/3 mL nebulization Non-Productive Cough soln amiodarone 200 mg tablet 100 mg PO DAILY 01/07/25 02/13/25 Lactobacillus acidophilus 1 1,000 mmu cells PO DAILY 02/13/25 02/13/25 billion cell tablet dextrose 40 % oral gel (Glucose 15 g PO Q15M PRN Hypocalcemia 02/13/25 02/13/25 Gel) dextrose 40 % oral gel (Glucose 15 g PO Q15M PRN Hypoglycemia 02/13/25 02/13/25 Gel) furosemide 20 mg tablet 20 mg PO DAILY PRN Weight increase 02/13/25 02/13/25 of 3lbs. glucagon 1 mg solution for 1 mg subcut Q15M PRN Hypoglycemia 02/13/25 02/13/25 injection levothyroxine 200 mcg tablet 200 mcg PO DAILY@0600 02/13/25 02/13/25 metoprolol tartrate 25 mg tablet 12.5 mg PO DAILY PRN Hypertension 02/13/25 02/13/25 Previous Rx's ?Medication ?Instructions ?Recorded flash glucose sensor (FreeStyle #1 ea 05/23/23 Madeline 14 Day Sensor kit) flash glucose sensor (FreeStyle #6 ea 05/23/23 Mdaeline 14 Day Sensor kit) pen needle, diabetic 32 gauge x #400 ea 09/17/23 (BD Eveline 2nd Gen Pen Needle) lactulose 10 gram/15 mL oral 30 ml PO DAILY PRN for 02/01/24 solution constipation #946 mL simvastatin 10 mg tablet 10 mg PO BEDTIME #90 tabs 06/16/24 insulin glargine U-300 conc 300 10 unit (0.0333 mL) subcut DAILY 07/14/24 unit/mL (1.5 mL) subcutaneous pen #4.5 mL (Toujeo SoloStar U-300 Insulin) metoprolol succinate 100 mg 100 mg PO DAILY 90 days #90 tabs 07/22/24 tablet,extended release 24 hr rivaroxaban 15 mg tablet (Xarelto) 15 mg PO DAILY@1700 #90 tabs 09/24/24 cefuroxime axetil 500 mg tablet 500 mg PO Q12H #4 tabs 02/18/25 doxycycline monohydrate 100 mg 100 mg PO Q12H #4 caps 02/18/25 capsule furosemide 40 mg tablet 40 mg PO BID@0900,1800 #1 tab 02/18/25 melatonin 3 mg tablet 6 mg (2 x 3 mg) PO BEDTIME PRN 02/18/25 Insomnia #1 tab Allergies Allergy/AdvReac Type Severity Reaction Status Date / Time codeine Allergy Intermediate TACHYCARDIA Verified 02/24/25 10:29 nitrofurantoin (Macrobid) Allergy Unknown confusion Verified 02/24/25 10:29 pravastatin Allergy Unknown Unknown Verified 02/24/25 10:29 rosuvastatin (Crestor) Allergy Unknown Unknown Verified 02/24/25 10:29 Sulfa (Sulfonamide Allergy Unknown unknown Verified 02/24/25 10:29 Antibiotics) sulfamethoxazole (From Allergy Unknown Unknown Verified 02/24/25 10:29 Bactrim) trimethoprim (From Bactrim) Allergy Unknown Unknown Verified 02/24/25 10:29 amlodipine AdvReac Intermediate leg Verified 02/24/25 10:29 swelling digoxin AdvReac Intermediate Confusion Verified 02/24/25 10:29 Review of Systems Review of Systems: ROS unable to be obtained due to altered mental status Yes all other systems are reviewed and are negative [facility] Past Medical History Attestation statement: The following information was validated with the patient. Source: old records reviewed Medical History Pyuria Pleural effusion Pleural effusion Congestive heart failure Chronic combined systolic and diastolic CHF (congestive heart failure) Hypothyroidism Constipation Transaminitis Congestive heart failure Ulcer of right ankle Recurrent UTI Urinary tract infection with fever Persistent atrial fibrillation Left thigh pain Abdominal mass, LUQ (left upper quadrant) Iliotibial band syndrome of left side UTI (urinary tract infection) Herpes zoster Orthostatic hypotension Acute hyponatremia Weakness COVID-19 Breast asymmetry Atrial fibrillation with rapid ventricular response Hyperkalemia Essential hypertension Atherosclerotic cardiovascular disease Chronic heart failure with preserved ejection fraction (HFpEF) Iliotibial band syndrome of right side Disc degeneration, lumbar Cognitive dysfunction 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 Atrial fibrillation Osteopenia Hypothyroid Spinal stenosis of lumbar region Degenerative disc disease, lumbar Type 2 diabetes mellitus with hyperglycemia Surgical History History of removal of cyst History of appendectomy History of eye surgery History of cataract surgery History of cholecystectomy History of section History of knee replacement History of hip replacement Family History Family History Father CVD (cardiovascular disease) Mother CVD (cardiovascular disease) Stroke Social History Social History Household Members: Unknown / Unable to assess Household Members Other:: son comes 3 days a week, daughter lives 5 minutes away visits frequently Housing: Unknown / Unable to assess Do you presently have visiting nurse or other home services: Yes Alcohol intake: never Comment: 1:! sitter in room Patient Tobacco Use Status: Former Tobacco user Tobacco use type: Cigarette Years Smoked: <1 e-Cigarette/Vaping Use: Former Use Second Hand Smoke Exposure: No Advance Directives: Yes Advance Directives on File: Yes Advance Directives Date on File: 08/29/21 Do you have a plan to hurt others: No Plan service: No Current occupational status: retired Cognitive needs: Yes (Walker) Hearing needs: No Vision needs: Yes Physical Exam Vital Signs: Vital Signs: Last Vital Signs Temp 97.7 F 02/24/25 11:24 Pulse 75 02/24/25 12:20 Resp 10 L 02/24/25 12:20 BP 193/79 H 02/24/25 12:20 Pulse Ox 95 02/24/25 12:20 O2 Del Method Nasal Cannula 02/24/25 12:20 O2 Flow Rate 2 02/24/25 12:20 Oxygen Flow Rate 2 02/24/25 10:27 BMI result Body Mass Index 29.4 Appearance: Alert. Oriented X1. No acute distress. Eyes: Pupils equal, round and reactive to light. ENT: Pharynx normal. Atraumatic Neck: Normal inspection. Neck supple. CVS: Normal heart rate and rhythm. Pulses normal. Respiratory: No respiratory distress. Breath sounds normal. Abdomen: Soft and nontender. Rectal: The patient has copious amounts of bright red and clotted blood in her adult brief filled the brief Skin: Skin warm and dry. Pale skin color. Extremities: No lower extremity edema. Neuro: Oriented X 1. No motor deficit. No sensory deficit. Course Course Course Narrative: Called her daughter Yue listed as healthcare proxy [phone] agrees with reversal of Xarelto until we can figure out where she is bleeding from given she is only on it for atrial fibrillation. I am going to order PICC at this time. A GI bleed protocols already been ordered 10:42 AM 02/24/2025 (NANCY RAJAN): Medications Administered Discontinued Medications Generic Name Dose Route Start Last Admin Trade Name Freq PRN Reason Stop Dose Admin Prothrombin Complex Concent ( 80 mls @ 480 mls/hr 02/24/25 10:42 02/24/25 11:22 Human) 2,000 unit/ IV IV 02/24/25 10:51 Infused Miscellaneous Supplies .Q10M ONE Infusion Iohexol 85 ml 02/24/25 11:56 02/24/25 11:59 Iohexol 350 Mg/Ml 100 Ml Infus..Btl IV 02/24/25 11:57 85 ml ONCE ONE Administration Medical Decision Making Medical Decision Making [facility] Narrative: 89-year-old female with past medical history of CHF most recent echo in 2024 shows an EF of 51%, pneumonia, CKD, hyperlipidemia, cognitive impairment, hyponatremia, diabetes, hypothyroidism, JADYN, CAD, UTI, AFib on Xarelto here with c/o active GI bleed she has saturated for adult briefs at this time. Given her bleeding and recent hemoglobin of 9 on discharge from our facility I am going to start on 1 unit of packed RBC emergent release, I am going to reverse her Xarelto as discussed with her daughter given risk versus benefit. I have ordered jimenez labs as well as CT scan for GI bleed protocol. The patient has 2 IVs Differential Diagnosis Differential Diagnoses: The differential diagnosis associated with the presentation includes Colitis, diverticular bleed, anticoagulation, active GI bleed Admission/Observation Consideration of admission/observation: Escalation of care including admission/observation considered Will admit for monitoring and surveillance Consult Healthcare Provider Management of the patient was discussed with: Hospitalist (Will admit) and Supervisor [place] (Dr. Bloom is aware) Lab Data MDM Lab Attestation statement: I reviewed the patient's lab results. 02/24/25 11:04 02/24/25 11:04 Labs: Lab Results 02/24/25 Range/Units 11:04 WBC 7.7 (4.8-10.8) X10*3/uL RBC 3.07 L (4.20-5.50) X10*6/uL Hgb 9.6 L (12.0-16.0) g/dl Hct 29.6 L (37.0-47.0) % MCV 96.4 (80.0-98.0) fL MCH 31.3 (27.0-33.0) pg MCHC 32.4 (31.0-35.0) g/dl RDW 17.3 H (11.0-16.0) % Plt Count 341 (160-400) X10*3/uL MPV 9.9 (9.4-12.3) fL Immature Gran % (Auto) 0.4 (0.0-0.4) % Neut % (Auto) 72.2 (45-73) % Lymph % (Auto) 9.9 L (20-40) % [place] % (Auto) 10.8 (2-11) % Eos % (Auto) 5.3 H (0-4) % Baso % (Auto) 1.4 (0-2) % Lymph # (Auto) 0.8 L (1.2-4.9) X10*3/uL [place] # (Auto) 0.8 (0.1-1.2) X10*3/uL Eos # (Auto) 0.4 (0.0-0.4) X10*3/uL Baso # (Auto) 0.1 (0.0-0.2) X10*3/uL Abs Immat Gran (auto) 0.03 (0.00-0.03) X10*3/uL Absolute Neuts (auto) 5.5 (2.0-8.3) x10*3/uL Absolute Nucleated RBC 0.000 (0.0-0.012) X10*3/uL Nucleated RBC % (auto) 0.0 (0.0-0.2) /100WBC Sodium 135 (135-145) mmol/L Potassium 4.3 (3.3-5.1) mmol/L Chloride 100 (96-108) mmol/L Carbon Dioxide 24 (22-29) mmol/L Anion Gap 15 (12-20) BUN 39 H (9-16) mg/dL Creatinine 1.25 (0.5-1.4) mg/dL Estim Creat Clear Calc 29.0 Estimated GFR 40 Random Glucose 401 H* (60-115) mg/dL Calcium 8.8 (8.4-10.2) mg/dL Magnesium 2.4 (1.6-2.6) mg/dL Total Bilirubin 0.6 (0.0-1.0) mg/dL Direct Bilirubin 0.3 (0.0-0.5) mg/dL AST 41 H (5-31) U/L ALT 18 (0-31) U/L Alkaline Phosphatase 143 H (39-117) U/L Troponin I High Sens 13.4 (<3.5-17.0) ng/L C-Reactive Protein 1.69 H (< or = 0.50) mg/dL Total Protein 6.9 (6.5-8.0) g/dL Albumin 3.7 (3.5-5.0) g/dL Lipase 9 (8-78) U/L Stool Occult Blood POSITIVE (NEGATIVE) Influenza Type A (PCR) NEGATIVE (Negative) Influenza Type B (PCR) NEGATIVE (Negative) RSV RNA Qual (PCR) NEGATIVE (Negative) SARS-CoV-2 RNA (RT-PCR) NEGATIVE (Negative) Blood Type O Positive Antibody Screen NEGATIVE Crossmatch See Detail Independent Interpretation I performed an independent interpretation of an: EKG, Plain X-Ray (Right-sided pleural effusion noted, cardiomegaly) and CT Scan (Suspect diverticular bleed no active GI bleed) Interpretation: Rate: 86 Rhythm: AFib [place]: Left Left bundle-branch block ST T wave : Nonspecific STT wave changes in 1 and aVL, no ST-elevation qTC: 509 prior studies: No significant change from prior The study has been interpreted contemporaneously by me. . Radiology Impression Discussion of test interpretation with radiology: I have reviewed the radiologist's reading. Independent Historian Clinical information obtained from an independent historian. History obtained from or confirmed by: EMS and Other (Daughter) External Record Review External record reviewed: Inpatient record, Outpatient record, Prior outpatient labs and Prior outpatient radiology Critical Care Time Critical Care Time Critical Care Time: Yes Total Critical Care Time: 60 Attestation: Time is exclusive of separately billable procedures. Time includes: direct patient care, patient reassessment, coordination of patient care, interpretation of data (laboratory data, pulse oximetry, arterial blood gases and chest xrays), review of patient's medical records, medical consultation and documentation of patient care. Reversal of Xarelto, stat administration of 1 unit packed RBC. Procedures excluded from critical care time: electrocardiography. I attest to this time spent taking care of the patient Discharge Plan Discharge Clinical Impression: Acute lower gastrointestinal bleeding Patient Disposition: Admitted As Inpatient Print Language: Belarusian
--- NOTE | 2025-02-24 10:33 | ECG_ITS ---
Test Reason : WEAKNESS Blood Pressure : */* mmHG Vent. Rate : 86 BPM Atrial Rate : * BPM P-R Int : * ms QRS Dur : 112 ms QT Int : 426 ms P-R-T Axes : * -51 72 degrees QTcB Int : 509 ms Atrial fibrillation Left axis deviation Incomplete left bundle branch block Minimal voltage criteria for LVH, may be normal variant ( Riley product ) Nonspecific ST abnormality Prolonged QT Abnormal ECG When compared with ECG of 13-Feb-2025 00:08, No significant changes seen Referred By: Nannette Lopez Electronically Signed By: MAGI HIGHTOWER
[2025-02-24 11:09] LABS: MANUAL DIFF FLAG NO
[2025-02-24] MEDS: Hum Prothrombin Cplx(PCC)4Fact 2,000 UNIT in Container,Empty 0 ML 480 UNIT IV (11:10)
[2025-02-24 11:11] LABS: OBS Int Ctl Valid YES; OBS1 POSITIVE (NEGATIVE)
[2025-02-24 11:15] LABS: Hematocrit 29.6 % (37.0-47.0); Hemoglobin 9.6 g/dl (12.0-16.0); Imm Gran Abs Auto 0.03 X10*3/uL (0.00-0.03); Imm Gran Pct Auto 0.4 % (0.0-0.4); Lymphocytes Absolute Auto 0.8 X10*3/uL (1.2-4.9); Mean Corpuscular HGB Conc 32.4 g/dl (31.0-35.0); Mean Corpuscular Hemoglobin 31.3 pg (27.0-33.0); Mean Corpuscular Volume 96.4 fL (80.0-98.0); NRBC Abs Auto 0.000 X10*3/uL (0.0-0.012); NRBC Pct Auto 0.0 /100WBC (0.0-0.2); Platelet Count 341 X10*3/uL (160-400); Red Blood Count 3.07 X10*6/uL (4.20-5.50); White Blood Count 7.7 X10*3/uL (4.8-10.8)
[2025-02-24 11:26] LABS: Alanine Aminotransferase 18 U/L (0-31); Albumin Level 3.7 g/dL (3.5-5.0); Alkaline Phosphatase 143 U/L (39-117); Anion Gap 15 (12-20); Aspartate Amino Transferase 41 U/L (5-31); Blood Urea Nitrogen 39 mg/dL (9-16); Calcium 8.8 mg/dL (8.4-10.2); Carbon Dioxide 24 mmol/L (22-29); Chloride 100 mmol/L (96-108); Creatinine Clr Calc Pharmacy 29.0; Estimated Glomerular Filt Rate 40; Lipase 9 U/L (8-78); Magnesium 2.4 mg/dL (1.6-2.6); Potassium 4.3 mmol/L (3.3-5.1); Sodium 135 mmol/L (135-145); Total Protein 6.9 g/dL (6.5-8.0)
[2025-02-24 11:31] LABS: Troponin-I High Sensitivity 13.4 ng/L (<3.5-17.0)
[2025-02-24 11:52] LABS: Resp Syncy Virus RNA Qual PCR NEGATIVE (Negative); SARS COV2 PCR INHOUSE NEGATIVE (Negative)
[2025-02-24] MEDS: iohexoL 350 MG/ML 100 ML INFUS..BTL 85 ML IV (11:59)
--- NOTE | 2025-02-24 12:22 | HO.NURTONUR ---
Addendum entered by Jacki Ronquillo RN 02/24/25 18:45: Pt becomes increasing agitated as the day progress. She demands to go home and requires frequent redirection and encouragement. Pt given PO seroquel. Original Note: 89 yr old female coming from [facility] for concerns of GI by staff. Per EMS, staff reported Pt has 3 bloody loose stools this AM. Pt is on Xarelto. Pt also recently treated for UTI and PNA Pt is alert and oriented to person, situation, and . On arrival VSS, afebrile. Pt wears brief and noted to have a moderate amount of loose stool noted to be bloody. While cleaning Pt, she had an additional bout of bloody diarrhea. Sample for testing obtained by Dr. Lopez. 20g to LAC from EMS on arrival, additional 20g to R wrist placed by JARVIS Tariq. Pt moved to ED8 for increased observation. Kcentra and 1 unit of blood (emergency released) given STAT per Dr. Lopez. Blood running @ 125 ml/hrs and Pt tolerating well. Pt seen for CT imaging. Purwick placed. No additional episodes of diarrhea at this time--will obtain sample for Cdiff panel when spec available. Pt resting quietly with daughter at bedside.
--- NOTE | 2025-02-24 14:50 | PHA.MEDREC ---
Pharmacy Consult ? Medication Reconciliation Pharmacy has completed the medication reconciliation. Med list obtained from [facility]
--- NOTE | 2025-02-24 16:10 | PM.EVENT ---
Event Note Date of Service: 02/24/25 Event Note: GI pt seen and examined with daughter present consult dictated. Xarelto reversed with K-Centra no bleeding seen on CT received 1 unit of prbcs hct seems reasonably stable. Discussed care with daughter, Rebeka Yang. She wishes no endoscopic intervention given Gerri's dementia and advanced age, which is very reasonable. Bleeding source likely is diverticular disease and should stop with reversal of anticoagulation. Monitor hct, advance diet and follow clinically. Time Spent With Patient Time: Total time managing care of this patient today ____ minutes.
--- NOTE | 2025-02-24 17:30 | P.HPHOSP_ITS ---
History of Present Illness Date of Service: 02/24/25 Attending physician on admission: Dru Sloan Chief Complaint: Bloody stools Pt is an 89-year-old female with a PMH significant for HFrEF, persistent AFib on Xarelto, insulin dependent diabetes type 2, HTN, HLD, hypothyroidism, and dementia who resided at long-term care at [facility] who presents to the ED for evaluation of bright red blood per rectum. Pt was apparently complaining of abdominal pain after breakfast this morning and staff noticed that she had bowel movements with BRB and clots x3-5. Pt herself has advanced dementia at baseline and is unable to provide meaningful HPI. In the ED pt's Xarelto was revered with K-centra and she was transfused one unit PRBCs. ?Random glucose was 401 and BP elevated as high as 195/79. CXR showed pulmonary edema and moderate right-sided pleural effusion, similar to previous. CT of abd/pelvis negative for definite active source of GIB; did show cardiac enargement and small to moderate right layering pleural effusion with possible mild degree of interstitial edema. Stool was positive for occult blood. Pt is admitted to the hospital for BRBPR concerning for acute lower GI bleed. Review of Systems 2 Review of Systems: Yes Unobtainable due to mental condition [facility] Medical History Pyuria Pleural effusion Pleural effusion Congestive heart failure Chronic combined systolic and diastolic CHF (congestive heart failure) Hypothyroidism Constipation Transaminitis Congestive heart failure Ulcer of right ankle Recurrent UTI Urinary tract infection with fever Persistent atrial fibrillation Left thigh pain Abdominal mass, LUQ (left upper quadrant) Iliotibial band syndrome of left side UTI (urinary tract infection) Herpes zoster Orthostatic hypotension Acute hyponatremia Weakness COVID-19 Breast asymmetry Atrial fibrillation with rapid ventricular response Hyperkalemia Essential hypertension Atherosclerotic cardiovascular disease Chronic heart failure with preserved ejection fraction (HFpEF) Iliotibial band syndrome of right side Disc degeneration, lumbar Cognitive dysfunction 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 Atrial fibrillation Osteopenia Hypothyroid Spinal stenosis of lumbar region Degenerative disc disease, lumbar Type 2 diabetes mellitus with hyperglycemia Family History Father CVD (cardiovascular disease) Mother CVD (cardiovascular disease) Stroke Surgical History History of removal of cyst History of appendectomy History of eye surgery History of cataract surgery History of cholecystectomy History of section History of knee replacement History of hip replacement Social History Household Members: Unknown / Unable to assess Household Members Other:: son comes 3 days a week, daughter lives 5 minutes away visits frequently Housing: Unknown / Unable to assess Do you presently have visiting nurse or other home services: Yes Alcohol intake: never Comment: 1:! sitter in room Patient Tobacco Use Status: Former Tobacco user Tobacco use type: Cigarette Years Smoked: <1 e-Cigarette/Vaping Use: Former Use Second Hand Smoke Exposure: No Advance Directives: Yes Advance Directives on File: Yes Advance Directives Date on File: 08/29/21 Do you have a plan to hurt others: No Plan service: No Current occupational status: retired Cognitive needs: Yes (Walker) Hearing needs: No Vision needs: Yes Meds Allergies Allergy/AdvReac Type Severity Reaction Status Date / Time codeine Allergy Intermediate TACHYCARDIA Verified 02/24/25 10:29 nitrofurantoin (Macrobid) Allergy Unknown confusion Verified 02/24/25 10:29 pravastatin Allergy Unknown Unknown Verified 02/24/25 10:29 rosuvastatin (Crestor) Allergy Unknown Unknown Verified 02/24/25 10:29 Sulfa (Sulfonamide Allergy Unknown unknown Verified 02/24/25 10:29 Antibiotics) sulfamethoxazole (From Allergy Unknown Unknown Verified 02/24/25 10:29 Bactrim) trimethoprim (From Bactrim) Allergy Unknown Unknown Verified 02/24/25 10:29 amlodipine AdvReac Intermediate leg Verified 02/24/25 10:29 swelling digoxin AdvReac Intermediate Confusion Verified 02/24/25 10:29 Active Medications: Current Medications Dextrose (Dextrose 50 % 25 Gm/50 Ml Syringe) 25 gm IVPUSH Q15M PRN; Protocol PRN Reason: per Hypoglycemia Standing Ord. Glucose (Glucose Gel 15 Gm Gel..Gram.) 15 gm PO Q15M PRN; Protocol PRN Reason: per Hypoglycemia Standing Ord. Hydralazine HCl (Hydralazine Hcl 20 Mg/Ml Vial) 5 mg IVPUSH Q6H PRN; Protocol PRN Reason: SBP>170 Insulin Human Lispro (Insulin Lispro 100 Unit/Ml 3 Ml Vial) 0 unit SUBCUT QIDACHS [facility]; Protocol Home Medications ?Medication ?Instructions ?Recorded ?Confirmed ?Last Taken ?Type travoprost 0.004 % eye drops 1 drp ophthalmic (eye) BE DTIME 06/01/20 02/24/25 11/16/23 History acetaminophen 500 mg tablet 1,000 mg PO TID Pain 08/1702/24/25 08/16/21 History cholecalciferol (vitamin D3) 25 25 mcg PO DAILY 02/24/25 04/19/24 History mcg (1,000 unit) capsule insulin lispro 100 unit/mL 1 sliding scale dose subcut TIDAC 11/17/23 02/24/25 04/19/24 History subcutaneous pen (Humalog KwikPen (U-100) Insulin) calcitriol 0.25 mcg capsule 0.25 mcg PO Q48H 04/20/24 02/24/25 04/19/24 History bisacodyl 10 mg rectal suppository 10 mg NJ DAILY PRN Constipation 07/12/24 02/24/25 Unknown History magnesium hydroxide 400 mg/5 mL 30 ml PO DAILY PRN Con stipation 07/12/24 02/24/25 Unknown History oral suspension (Milk of Magnesia) sennosides 8.6 mg-docusate sodium 1 tab-cap PO BID 08/3102/24/25 Unknown History 50 mg tablet (Senna with Docusate Sodium) sodium phosphates 19 gram-7 118 ml NJ DAILY PRN Consti pation 07/12/24 02/24/25 Unknown History gram/118 mL enema (Fleet Enema) vit C 250 mg-vit E 90 mg-zinc 40 1 tab PO DAILY 02/24/25 Unknown History mg-copper 1 [id number] capsule (PreserVision AREDS-2) guaifenesin 400 mg tablet (Mucus 400 mg PO Q6H PRN Cou gh/Nasal 09/22/24 02/24/25 Unknown History Relief) Congestion ipratropium 0.5 mg-albuterol 3 mg 3 ml inhalation Q6H PRN 09/22/24 02/24/25 Unknown History (2.5 mg base)/3 mL nebulization Non-Productive Cough soln amiodarone 200 mg tablet 100 mg PO DAILY 01/07/25 Unknown History Lactobacillus acidophilus 1 1,000 mmu cells PO BID 10/3102/24/25 Unknown History billion cell tablet dextrose 40 % oral gel (Glucose 15 g PO Q15M PRN BLOOD GLUC<51 02/13/25 02/24/25 Unknown History Gel) dextrose 40 % oral gel (Glucose 15 g PO Q15M PRN BLOOD GLUCOSE 02/13/25 02/24/25 Unknown History Gel) 51-70 furosemide 20 mg tablet 20 mg PO DAILY PRN Weight in crease 02/13/25 02/24/25 Unknown History of 3lbs. glucagon 1 mg solution for 1 mg subcut Q15M PRN Hypogl ycemia 02/13/25 02/24/25 Unknown History injection levothyroxine 200 mcg tablet 200 mcg PO DAILY@0600 10/3102/24/25 Unknown History metoprolol tartrate 25 mg tablet 12.5 mg PO DAILY PRN Hypertension 02/13/25 02/24/25 Unknown History Physical Exam 2 Vital Signs and Narrative: Vital Signs: Last Vital Signs Temp 97.3 F 02/24/25 13:56 Pulse 88 02/24/25 15:54 Resp 18 02/24/25 15:54 BP 224/101 H 02/24/25 13:56 Pulse Ox 91 L 02/24/25 15:54 O2 Del Method Room Air 02/24/25 15:54 O2 Flow Rate 2 02/24/25 12:20 Oxygen Flow Rate 2 02/24/25 10:27 BMI result Body Mass Index 29.4 General: Awake and alert, intermittently agitated. Not cooperative with examination. Resp: breathing unlabored CVS: Irregularly irregular rhythm GI: +BS, NT, no distention Skin: Warm, dry Neuro: Cranial nerves II-XII grossly intact bilaterally. Motor grossly intact bilaterally Extremities: No edema Psych: Agitated, restless. Results Labs 02/24/25 11:04 02/24/25 11:04 Labs: Laboratory Results - last 24 hr 02/24/25 11:04 MCV 96.4 MCH 31.3 MCHC 32.4 RDW 17.3 H Plt Count 341 MPV 9.9 Immature Gran % (Auto) 0.4 Neut % (Auto) 72.2 Lymph % (Auto) 9.9 L [place] % (Auto) 10.8 Eos % (Auto) 5.3 H Baso % (Auto) 1.4 Lymph # (Auto) 0.8 L [place] # (Auto) 0.8 Eos # (Auto) 0.4 Baso # (Auto) 0.1 Abs Immat Gran (auto) 0.03 Absolute Neuts (auto) 5.5 Absolute Nucleated RBC 0.000 Nucleated RBC % (auto) 0.0 Anion Gap 15 Estim Creat Clear Calc 29.0 Estimated GFR 40 Random Glucose 401 H* Calcium 8.8 Magnesium 2.4 Total Bilirubin 0.6 Direct Bilirubin 0.3 AST 41 H ALT 18 Alkaline Phosphatase 143 H Troponin I High Sens 13.4 C-Reactive Protein 1.69 H Total Protein 6.9 Albumin 3.7 Lipase 9 Stool Occult Blood POSITIVE Influenza Type A (PCR) NEGATIVE Influenza Type B (PCR) NEGATIVE RSV RNA Qual (PCR) NEGATIVE SARS-CoV-2 RNA (RT-PCR) NEGATIVE Blood Type O Positive Antibody Screen NEGATIVE Crossmatch See Detail Imaging Radiologist's Impressions: Impressions Chest X-Ray 02/24/25 10:50 IMPRESSION: Pulmonary edema and right-sided pleural effusion, moderate volume. Small pericardial effusion cannot be excluded. Electronically signed by: Jose L Cisneros MD 02/24/2025 11:02 AM EST RP Abdomen/Pelvis CT 02/24/25 11:48 IMPRESSION: 1. There is no definite active source for GI bleeding identified. There is mild colonic diverticulosis without evidence of acute diverticulitis. 2. There is notable enhancement of the gastric mucosa, suggesting gastritis. 3. Cirrhotic morphology of the liver without suspicious lesion present. 4. Heavy atheromatous calcification of the arterial structures without aneurysm present. 5. Cardiac enlargement with a small to moderate-sized right layering pleural effusion, and discoid atelectasis in the right middle lobe and lingula. A mild degree of interstitial edema is not excluded in the lung bases. 6. Additional ancillary findings as discussed in the body of the report. Electronically signed by: Narinder Rose MD 02/24/2025 12:45 PM EST RP Assessment and Plan (1) Bright red blood per rectum: Status: Acute Plan Pt is an 89-year-old female with a PMH significant for HFrEF, persistent AFib on Xarelto, insulin dependent diabetes type 2, HTN, HLD, hypothyroidism, and dementia who resided at long-term care at [facility] who presents to the ED for evaluation of bright red blood per rectum. Pt is admitted to the hospital for BRBPR concerning for acute lower GI bleed. BRBPR 3-5 episodes, with clots CT of abd/pelvis neg for acute bleed Likely diverticular bleed worsened by anticoagulation Pt given K-centra in ED, transfused 1u PRBCs Hold Xarelto Family does not want and aggressive treatments, including scoping GI following Monitor H&H Hypertensive urgency Pt's BP elevated as high as 189/101 Continue amiodarone, furosemide, metoprolol james and prn Hydralazine 5mg IV for SBP >180 Follow BP closely HFrEF CXR and CT concerning for pleural effusion and possible pulmonary edema No hypoxia, pt appears asymptomatic: possible mild CHF exacerbation Will give Lasix 40mg IV x1 in the am Continue home Lasix po Continue metoprolol Persistent AFib Continue amiodorone, metoprolol Hold Xarelto Dementia with behavioral disturbances Pt has been agitated and not re-directable while in the hospital Received Seroquel 25mg po x2 with little effect Will try Zyprexa 5mg po bid May require sitter if behaviors persist Insulin dependent type 2 diabetes SSI, Lantus, diabetic diet Hypothyroidism Continue levothyroxine HLD Statin DNR/DNI Attending:?Dr. Sloan DVT Prophylaxis: Pneumatic compression due to concerns for LGIB Pt will require a hospitalization of at least two nights for treatment of?BRBR concerning for LGIB with close monitoring of labs and vitals, transfusion as necessary, and specialist consult with GI. Quality Stroke Does the patient have a stroke diagnosis?: No VTE Prior VTE?: No VTE Risk Level:: Medical - moderate - high VTE Device Contraindication: N/A - Device Ordered VTE Drug Contraindication: Treatment Not Indicated
[2025-02-24 20:56] LABS: Glucose, Whole Blood 365 mg/dL (60-115)
[2025-02-24] MEDS: 0.9 % Sodium Chloride Flush 3 ML SYRINGE IVFLUSH (23:50)
[2025-02-25 00:43] LABS: Glucose, Whole Blood 180 mg/dL (60-115)
--- NOTE | 2025-02-25 03:16 | CONS_ITS ---
DATE OF SERVICE: 02/24/2025 REFERRING PHYSICIAN: Dr. Sanders REASON FOR CONSULTATION: Rectal bleeding. HISTORY OF PRESENT ILLNESS: The patient is an 89-year-old woman with dementia who resides at a [facility] and who is admitted to the hospital after presenting to the emergency department with rectal bleeding. She has a history of atrial fibrillation, is on Xarelto. She has also been treated recently with antibiotics for urinary tract infections. The patient provides no history due to dementia. She was brought to the emergency department with 3 episodes of bright red blood with clots without any abdominal pain. She had vital signs that were stable. She was evaluated with laboratory studies, which showed a hematocrit the day prior to admission of 31.4. Repeat hematocrit in the emergency department was slightly lower, but was stable. CT scanning was obtained which showed no evidence of active GI bleeding. There was some enhancement of the gastric mucosa consistent with possible gastritis. PAST MEDICAL HISTORY: CURRENT MEDICATIONS: Her current medication list is reviewed in the chart. ALLERGIES: THERE ARE MULTIPLE MEDICATION ALLERGIES. FAMILY HISTORY: Reviewed in the medical record. SOCIAL HISTORY: Reviewed in the medical record. REVIEW OF SYSTEMS: Not obtainable due to the patient's dementia. PHYSICAL EXAMINATION: GENERAL: Shows a pleasant, frail, elderly female who does not provide any history. VITAL SIGNS: Reviewed in the electronic medical record and are stable. SKIN: Anicteric. HEENT: Shows no scleral icterus. NECK: Without lymphadenopathy or thyromegaly. LUNGS: Clear. HEART: Shows an irregular S1, S2. No murmur. ABDOMEN: Soft without focal masses or tenderness. Bowel sounds are present. No organomegaly is noted. EXTREMITIES: Show trace edema. DIAGNOSTIC DATA: Laboratory studies and imaging studies are reviewed. IMPRESSION: Rectal bleeding. Her rectal bleeding is most consistent with bleeding from a diverticular source worsen by chronic anticoagulation. I discussed this with the patient and her daughter. Her daughter is a pharmacist and is not interested in pursuing further evaluation with endoscopy or colonoscopy based on the patient's age and relatively frail condition, this is reasonable given her presentation, and it is likely that the bleeding will stop with her anticoagulation being reversed. We discussed this in detail. Her daughter indicates that she would not undergo intervention for colon cancer if this was found at the time of colonoscopy. The patient's last colonoscopy in 2003 showed several hyperplastic polyps, and she did undergo upper endoscopy in 2019. These were reviewed. At this time, I would recommend advancing her diet and following her clinically. Monitoring hematocrit would be reasonable, and if she requires transfusion, this would also be reasonable. If she does have recurrent bleeding, one could consider imaging with Nuclear Medicine, labeled red cell scan. Thanks for asking me to see her. I will follow her in the hospital with you. MD ASIF Clement/SANTIAGO / [phone]
[2025-02-25 03:20] VITALS: BP 169/97; PULSE 99; RESP 18; TEMP 36.6; O2SAT 96
[2025-02-25 04:39] LABS: Glucose, Whole Blood 181 mg/dL (60-115)
[2025-02-25 07:07] VITALS: BP 148/86; PULSE 115; RESP 20; TEMP 36.2; O2SAT 95
[2025-02-25 07:46] LABS: Glucose, Whole Blood 267 mg/dL (60-115)
[2025-02-25] MEDS: Metoprolol Succinate ER 100 MG TAB.ER.24H PO (08:01)
[2025-02-25] MEDS: Insulin Glargine,Hum.rec.anlog 100 UNIT/ML 10 ML VIAL 10 UNIT SUBCUT (08:03)
--- NOTE | 2025-02-25 08:37 | MHC.CM.PN ---
CM met with Patient at bedside; Patient appeared confused and eager to get a drink of water from the CONTROL OFFICER in the room. CM was given permission from Patient to speak with Daughter/HCP/Yue @ [phone]. Patient is a LTC Resident and private pay bed hold at [facility] and returning there, via BLS, is the goal. CM has initiated and will follow for dc planning.
[2025-02-25 10:24] LABS: Hematocrit 34.7 % (37.0-47.0); Hemoglobin 11.4 g/dl (12.0-16.0); Mean Corpuscular HGB Conc 32.9 g/dl (31.0-35.0); Mean Corpuscular Hemoglobin 30.8 pg (27.0-33.0); Mean Corpuscular Volume 93.8 fL (80.0-98.0); NRBC Abs Auto 0.000 X10*3/uL (0.0-0.012); NRBC Pct Auto 0.0 /100WBC (0.0-0.2); Platelet Count 329 X10*3/uL (160-400); Red Blood Count 3.70 X10*6/uL (4.20-5.50); White Blood Count 6.7 X10*3/uL (4.8-10.8)
[2025-02-25 10:31] LABS: INTERNATIONAL NORM RATIO 1.2 (0.9-1.1); Prothrombin Time 15.2 SEC (11.2-13.5)
[2025-02-25 10:45] LABS: Anion Gap 17 (12-20); Blood Urea Nitrogen 32 mg/dL (9-16); Calcium 9.2 mg/dL (8.4-10.2); Carbon Dioxide 24 mmol/L (22-29); Chloride 101 mmol/L (96-108); Creatinine Clr Calc Pharmacy 26.7; Estimated Glomerular Filt Rate 38; Potassium 3.9 mmol/L (3.3-5.1); Sodium 138 mmol/L (135-145)
[2025-02-25 11:41] VITALS: BP 128/58; PULSE 80; RESP 18; TEMP 36.2; O2SAT 92
[2025-02-25 11:41] LABS: Glucose, Whole Blood 210 mg/dL (60-115)
--- NOTE | 2025-02-25 13:26 | MHC.CM.PN ---
Per PA, Patient is medically cleared for dc to return to LTC today. Patient will return to [facility] today at 5 PM, via [facility]. CM spoke with Daughter/HCP/Yue @ [phone] and informed her of the dc plan.
[2025-02-25 15:35] VITALS: BP 130/64; PULSE 106; RESP 18; TEMP 36.6; O2SAT 93
--- NOTE | 2025-02-25 15:36 | P.PNGI_ITS ---
Subjective Subjective Date of Service: 02/25/25 Interval History: sedated denies abd pain Critical Care Time (minutes): 0 Physical Exam 2 Vital Signs: Vital Signs: Last Vital Signs Temp 97.2 F 02/25/25 11:41 Pulse 80 02/25/25 11:41 Resp 18 02/25/25 11:41 BP 128/58 L 02/25/25 11:41 Pulse Ox 92 02/25/25 11:41 O2 Del Method Room Air 02/25/25 11:41 O2 Flow Rate 2 02/24/25 12:20 Oxygen Flow Rate 2 02/24/25 10:27 BMI result Body Mass Index 27.1 GI: Other: abdomen is soft and nontender Objective Data Labs 02/25/25 09:50 02/25/25 09:50 Labs: Laboratory Results - last 24 hr 02/24/25 02/25/25 02/25/25 20:51 00:39 04:35 WBC RBC Hgb Hct MCV MCH MCHC RDW Plt Count MPV Absolute Nucleated RBC Nucleated RBC % (auto) PT INR Sodium Potassium Chloride Carbon Dioxide Anion Gap BUN Creatinine Estim Creat Clear Calc Estimated GFR POC Glucose 365 H* 180 H 181 H Random Glucose Calcium 02/25/25 02/25/25 02/25/25 07:18 09:50 11:32 WBC 6.7 RBC 3.70 L D Hgb 11.4 L Hct 34.7 L MCV 93.8 MCH 30.8 MCHC 32.9 RDW 17.1 H Plt Count 329 MPV 10.1 Absolute Nucleated RBC 0.000 Nucleated RBC % (auto) 0.0 PT 15.2 H INR 1.2 H Sodium 138 Potassium 3.9 Chloride 101 Carbon Dioxide 24 Anion Gap 17 BUN 32 H Creatinine 1.31 Estim Creat Clear Calc 26.7 Estimated GFR 38 POC Glucose 267 H 210 H Random Glucose 278 H Calcium 9.2 Procedures Date of Service Date of Service: 02/25/25 Progress Note: A&P Assessment and plan (1) Bright red blood per rectum: Status: Acute Assessment and Plan: stable no bleeding after anticoagulation reversal family declines endoscopic intervention after shared decision making. stable, ok for discharge restarting anticoagulation in 3 or 4 days seems appropriate. Time Spent With Patient Time: Total time managing care of this patient today ____ minutes. Quality Stroke Does the patient have a stroke diagnosis?: No VTE Prior VTE?: No VTE Risk Level:: Medical - moderate - high VTE Device Contraindication: N/A - Device Ordered VTE Drug Contraindication: Treatment Not Indicated
--- NOTE | 2025-02-25 15:53 | P.DS_ITS ---
DS: Providers Provider Date of Service: 02/25/25 Date of admission: 02/24/25 13:45 Date of discharge: 02/25/25 Primary care physician: Torrey Kwok MD Consults: 02/24/25 13:08 Consult to Gastroenterology Stat Consulting Provider[place] [facility] Reason for consultation: Rectal bleeding Has provider been notified: Yes DS: Diagnosis Discharge Diagnosis (1) Bright red blood per rectum: Status: Acute DS: Summary Hospital Course Hospital Course: From admission HPI: Date of Service: 02/24/25 Attending physician on admission: Dru Sloan Chief Complaint: Bloody stools Pt is an 89-year-old female with a PMH significant for HFrEF, persistent AFib on Xarelto, insulin dependent diabetes type 2, HTN, HLD, hypothyroidism, and dementia who resided at long-term care at [facility] who presents to the ED for evaluation of bright red blood per rectum. Pt was apparently complaining of abdominal pain after breakfast this morning and staff noticed that she had bowel movements with BRB and clots x3-5. Pt herself has advanced dementia at baseline and is unable to provide meaningful HPI. In the ED pt's Xarelto was revered with K-centra and she was transfused one unit PRBCs. ?Random glucose was 401 and BP elevated as high as 195/79. CXR showed pulmonary edema and moderate right-sided pleural effusion, similar to previous. CT of abd/pelvis negative for definite active source of GIB; did show cardiac enargement and small to moderate right layering pleural effusion with possible mild degree of interstitial edema. Stool was positive for occult blood. Pt is admitted to the hospital for BRBPR concerning for acute lower GI bleed. Hospital course The pt was admitted to the hospital after experiencing bright red blood per rectum that was concerning for acute GI bleed in the setting of long-term Xarelto use. Pt was given 1 unit PRBCs and had her anticoagulation reversed with Kcentra in the ED. Repeat CBC the following day showed appropriate increase in H&H from 9.6/29.6 -->11.4/34.7. Pt seemed hemodynamically stable without any repeat episodes of bleeding post anticoagulation reversal. Pt was noted to have a bowel movement that was soft in nature but negative for either clots or bright red blood. Pt was seen and evaluated by GI who thought that BRBPR was secondary to diverticular bleed in the setting of long-term ant icoagulation use. Family has been consulted and declined any endoscopic intervention. Given that pt is hemodynamically stable, they were were deemed ready for discharge back to facility. Family was consulted and would like to continue with anticoagulation for stroke prevention. GI recommended resuming Xarelto on Sunday, 02/28. Of note, pt has advanced dementia with behavioral disturbances at baseline. Was noted to be agitated and combative at times, requiring olanzapine 5 mg p.o. with improvement in behaviors. Pt has also noted to be having soft stools since being on antibiotics last week. Should continue to hold her senna/docusate until bowel function returns to her normal. She should otherwise continue all of her other home medications. Additional details concerning hospital stay as indicated below. BRBPR 3-5 episodes, with clots CT of abd/pelvis neg for acute bleed Likely diverticular bleed worsened by anticoagulation Pt given K-centra in ED, transfused 1u PRBCs Hold Xarelto Family does not want and aggressive treatments, including scoping GI following Monitor H&H Hypertensive urgency Pt's BP elevated as high as 189/101 Continue amiodarone, furosemide, metoprolol james and prn Hydralazine 5mg IV for SBP >180 Follow BP closely HFrEF CXR and CT concerning for pleural effusion and possible pulmonary edema No hypoxia, pt appears asymptomatic: possible mild CHF exacerbation Will give Lasix 40mg IV x1 in the am Continue home Lasix po Continue metoprolol Persistent AFib Continue amiodorone, metoprolol Hold Xarelto Dementia with behavioral disturbances Pt has been agitated and not re-directable while in the hospital Received Seroquel 25mg po x2 with little effect Will try Zyprexa 5mg po bid May require sitter if behaviors persist Insulin dependent type 2 diabetes SSI, Lantus, diabetic diet Hypothyroidism Continue levothyroxine HLD Continue statin Time Attestation Discharge Coordination Time (in mins): 35 Quality: Safe Use of Opioids Does Pt have an Active Cancer Diagnosis on the Problem List?: No Quality: Stroke Does the patient have a stroke diagnosis?: No Physical Exam Exam: Exam: General: Awake and alert, intermittently agitated and combative. Not cooperative with examination. Resp: breathing unlabored CVS: Irregularly irregular rhythm GI: +BS, NT, no distention Skin: Warm, dry Neuro: Cranial nerves II-XII grossly intact bilaterally. Motor grossly intact bilaterally Extremities: No edema Psych: Agitated, restless. Vital Signs: Vital Signs: Last Vital Signs Temp 97.8 F 02/25/25 15:35 Pulse 106 H 02/25/25 15:35 Resp 18 02/25/25 15:35 BP 130/64 02/25/25 15:35 Pulse Ox 93 02/25/25 15:35 O2 Del Method Room Air 02/25/25 15:35 O2 Flow Rate 2 02/24/25 12:20 Oxygen Flow Rate 2 02/24/25 10:27 BMI result Body Mass Index 27.1 DS: Data Data Completed and Pending Completed studies during hospitalization [Text1]: Procedures Introduction of Remdesivir Anti-infective into Peripheral Vein, Percutaneous Approach, [employer] 5 (08/17/21) Reposition Right Lower Femur with Intramedullary Internal Fixation Device, Percutaneous Approach (04/19/24) Christianity of Cardiac Rhythm, Single (06/01/20) Transfusion of Nonautologous Red Blood Cells into Peripheral Vein, Percutaneous Approach (04/19/24) Labs on day of discharge: Laboratory Results - last 24 hr 02/24/25 02/25/25 02/25/25 20:51 00:39 04:35 WBC RBC Hgb Hct MCV MCH MCHC RDW Plt Count MPV Absolute Nucleated RBC Nucleated RBC % (auto) PT INR Sodium Potassium Chloride Carbon Dioxide Anion Gap BUN Creatinine Estim Creat Clear Calc Estimated GFR POC Glucose 365 H* 180 H 181 H Random Glucose Calcium 02/25/25 02/25/25 02/25/25 07:18 09:50 11:32 WBC 6.7 RBC 3.70 L D Hgb 11.4 L Hct 34.7 L MCV 93.8 MCH 30.8 MCHC 32.9 RDW 17.1 H Plt Count 329 MPV 10.1 Absolute Nucleated RBC 0.000 Nucleated RBC % (auto) 0.0 PT 15.2 H INR 1.2 H Sodium 138 Potassium 3.9 Chloride 101 Carbon Dioxide 24 Anion Gap 17 BUN 32 H Creatinine 1.31 Estim Creat Clear Calc 26.7 Estimated GFR 38 POC Glucose 267 H 210 H Random Glucose 278 H Calcium 9.2 Discharge Plan Discharge Anticipated Discharge Date/Time: 02/25/25 15:43 Patient Disposition: Xfer [facility] Discharge Diagnosis: Acute blood loss anemia Referrals: Victorina Powell [Outside] - 1 Week Torrey Kwok MD [Primary Care Provider, Internal Medicine] - 1 Week Discharge Medications: Continued cholecalciferol (vitamin D3) 25 mcg (1,000 unit) capsule 25 mcg PO DAILY (DME) FreeStyle Madeline 14 Day Sensor Kit See Rx Instructions .ROUTE .MEDSUPPLY Qty: 1 6RF Rx Instructions: Dx: E11.65 As directed, 14 days (DME) FreeStyle Madeline 14 Day Sensor Kit See Rx Instructions .Route Qty: 6 3RF Rx Instructions: As directed lactulose 10 gram/15 mL solution 30 ml PO DAILY PRN (Reason: for constipation) Qty: 946 0RF simvastatin 10 mg tablet 10 mg PO BEDTIME Qty: 90 0RF metoprolol succinate 100 mg tablet extended release 24 hr 100 mg PO DAILY 90 Days Qty: 90 0RF travoprost 0.004 % drops 1 drp ophthalmic (eye) BEDTIME acetaminophen 500 mg Tablet 1,000 mg PO TID insulin lispro [Humalog KwikPen Insulin] 100 unit/mL insulin pen 1 sliding scale dose subcut TIDAC Rx Instructions: 0-99 = no insulin 100-150 = 2 units 151 - 200 = 3 units 201 -250 = 4 units 251 - 300 = 5 units 301 - 350 = 7 units 351 - 400 = 8 units 401 - 450 = 10 units 451- 500 = 11 units 501 + = 15 units sennosides-docusate sodium [Senna with Docusate Sodium] 8.6-50 mg Tablet 1 tab-cap PO BID PreserVision AREDS-2 250-90-40-1 mg Capsule 1 tab PO DAILY magnesium hydroxide [Milk of Magnesia] 400 mg/5 mL Suspension 30 ml PO DAILY PRN (Reason: Constipation) bisacodyl 10 mg Suppository 10 mg VA DAILY PRN (Reason: Constipation) Fleet Enema 19-7 gram/118 mL Enema 118 ml VA DAILY PRN (Reason: Constipation) insulin glargine U-300 conc [Toujeo SoloStar U-300 Insulin] 300 unit/mL (1.5 mL) insulin pen 10 unit subcut DAILY Qty: 4.5 0RF Rx Instructions: or as directed ipratropium-albuterol 0.5 mg-3 mg(2.5 mg base)/3 mL Solution For Nebulization 3 ml INHALATION Q6H PRN (Reason: Non-Productive Cough) guaifenesin [Mucus Relief] 400 mg Tablet 400 mg PO Q6H PRN (Reason: Cough/Nasal Congestion) dextrose [Glucose Gel] 40 % Gel 15 g PO Q15M PRN (Reason: BLOOD GLUCOSE 51-70) Rx Instructions: FOR BLOOD GLUCOSE 51 TO 70 TREAT IF CONSCIOUS ADMINISTER ORAL NEEDED FOR HYPOGLYCEMIA. dextrose [Glucose Gel] 40 % Gel 15 g PO Q15M PRN (Reason: BLOOD GLUC<51) Rx Instructions: FOR BLOOD GLUCOSE LESS THEN 51, IF CONCIOUS TREAT AND ADMINISTER. levothyroxine 200 mcg Tablet 200 mcg PO DAILY@0600 furosemide 20 mg Tablet 20 mg PO DAILY PRN (Reason: Weight increase of 3lbs.) glucagon 1 mg Recon Soln 1 mg SUBCUT Q15M PRN (Reason: Hypoglycemia) Rx Instructions: until target blood sugar attained metoprolol tartrate 25 mg Tablet 12.5 mg PO DAILY PRN (Reason: Hypertension) Rx Instructions: Give 12.5mg if SBP greater then 180 and distolic greater then 100 as needed for 110. Lactobacillus acidophilus 1 billion cell Tablet 1,000 mmu cells PO BID Rx Instructions: 1 mg bid furosemide 40 mg Tablet 40 mg PO BID@0900,1800 Qty: 1 0RF Protocol: Hold for SBP< HOLD for SBP < : 90 melatonin 3 mg Tablet 6 mg PO BEDTIME PRN (Reason: Insomnia) Qty: 1 0RF calcitriol 0.25 mcg capsule 0.25 mcg PO Q48H (DME) pen needle, diabetic [BD Eveline 2nd Gen Pen Needle] 32 gauge x 5/32 needle See Rx Instructions .ROUTE .COMPLEX Qty: 400 3RF Dose Instruction: USEN TO INJECT INSULIN FOUR TIMES DAILY Rx Instructions: USEN TO INJECT INSULIN FOUR TIMES DAILY amiodarone 200 mg tablet 100 mg PO DAILY Held Xarelto 15 mg Tablet 15 mg PO DAILY@1700 Qty: 90 0RF Hold Instructions: Resume on 02/28/25. Pt's Xarelto should be resumed on Sunday, 02/28 unless pt noted to have recurrent bleed. Discharge Orders: Discharge Order (Routine); Ordered 02/25/25 Ordered By: Lori Camacho Activity on Discharge: As tolerated Stand Alone Forms: Patient Portal Discharge page Print Language: Beninese Care Plan Goals: See below Health Concerns: Lower GI bleed Acute blood loss anemia Dementia with behaviour disturbances Plan of Treatment: You were admitted to the hospital after experiencing bright red blood per rectum that was concerning for a lower GI bleed in the setting of long-term anticoagulation. You were transfused 1 unit of packed red blood cells and had your Xarelto reversed with Kcentra in the ED. You had no repeat episodes of bleeding after anticoagulation reversal and your blood levels improved appropriately this morning. You were seen and evaluated by GI who thought you likely experienced a diverticular bleed. As you seem hemodynamically stable and have been tolerating a solid diet without any apparent issues, you are now ready to be discharged back to your facility. GI recommends restarting your anticoagulation on Wednesday 02/28. Assessment: See discharge summary
[2025-02-25 16:06] LABS: Glucose, Whole Blood 209 mg/dL (60-115)
== END 2025-02-25 18:09 | DRG 377 ==
LOC: HO.ED 13:03 → HO.EDOVER 13:49 → HO.IMC 19:10
PROVIDERS: Admitting Provider Student in an Organized Health Care Education/Training Program; Emergency Provider Emergency Medicine; PCP Family Medicine Geriatric Medicine; Visit Provider Student in an Organized Health Care Education/Training Program
DX: K57.31 Diverticulosis of large intestine without perforation or abscess with bleeding (principal); I50.23 Acute on chronic systolic (congestive) heart failure; D68.32 Hemorrhagic disorder due to extrinsic circulating anticoagulants; F03.918 Unspecified dementia, unspecified severity, with other behavioral disturbance; I48.19 Other persistent atrial fibrillation; Z20.822 Contact with and (suspected) exposure to COVID-19; Z66 Do not resuscitate; E03.9 Hypothyroidism, unspecified; T45.515A Adverse effect of anticoagulants, initial encounter; I11.0 Hypertensive heart disease with heart failure; I16.0 Hypertensive urgency; E78.5 Hyperlipidemia, unspecified; Z87.891 Personal history of nicotine dependence; Z79.4 Long term (current) use of insulin; Z79.01 Long term (current) use of anticoagulants; Z79.890 Hormone replacement therapy; Z79.899 Other long term (current) drug therapy
CPT/HCPCS: 36415; 71045; 74178; 80048; 80076; 82272; 82947; 83690; 83735; 84484; 85025; 85027; 85610; 86140; 86850; 86900; 86901; 86920; 87637; 93005; 99285; J0360; J7168; P9016; Q9967

== ENCOUNTER → 2025-02-24 10:33 | Outpatient (BNV) | payer MEDICARE, SELFPAY | PROVIDERS: Admitting Provider Student in an Organized Health Care Education/Training Program; Emergency Provider Emergency Medicine; PCP Family Medicine Geriatric Medicine; Visit Provider Internal Medicine | DX: I48.91 Unspecified atrial fibrillation (principal); I44.7 Left bundle-branch block, unspecified | CPT/HCPCS: 93010 ==

== ENCOUNTER → 2025-02-24 10:33 | Outpatient (BNV) | payer MEDICARE, SELFPAY | PROVIDERS: Emergency Provider Emergency Medicine; PCP Family Medicine Geriatric Medicine; Visit Provider Radiology Diagnostic Radiology | DX: K57.30 Diverticulosis of large intestine without perforation or abscess without bleeding (principal); K74.60 Unspecified cirrhosis of liver; I25.84 Coronary atherosclerosis due to calcified coronary lesion; I51.7 Cardiomegaly; J98.11 Atelectasis; J81.1 Chronic pulmonary edema; J90 Pleural effusion, not elsewhere classified; I31.39 Other pericardial effusion (noninflammatory) | CPT/HCPCS: 71045; 74178 ==

== ENCOUNTER → 2025-02-24 13:45 | Outpatient (BNV) | payer MEDICARE, SELFPAY | PROVIDERS: Admitting Provider Student in an Organized Health Care Education/Training Program; Emergency Provider Emergency Medicine; PCP Family Medicine Geriatric Medicine; Visit Provider Student in an Organized Health Care Education/Training Program | DX: K62.5 Hemorrhage of anus and rectum (principal) | CPT/HCPCS: 99223; 99233 ==

== ENCOUNTER 2025-04-03 21:08 | Emergency (ER) | payer MEDICARE, SELFPAY ==
--- OUTSIDE RECORDS SUMMARY | 2019-08-30 10:18 | XMS_ITS | Encounter Summary ---
Author Organization [facility] Address [address] [place] [address] Phone Care Team Providers Care Field Account Director Name Role Phone Monique White MD Primary Care Provider [phone] Encounter Details Date Type Department Care Team (Late Contact Info) Description 08/30/2019 11:18 AM EDT Hospital Encounter [facility] [address] [place] [phone] Nguyen Victoria, DANCE CHOREOGRAPHER [address] [place] [address] [email or web address] Social History Tobacco Use Types Packs/Day Years Used Date Smoking Tobacco: Former Cigarettes 1 7 1 953 - 3646 Passive Smoke Exposure: Past Smokeless Tobacco: Never Comments:patient quit smokin g in her 20s Alcohol Use Standard Drinks/Week Comments Not Currently 0 (1 standard drink = 0.6 oz pur e alcohol) Education Answer Date Recorded Are you interested in more education? Not on eric e 08/04/2022 Are you concerned about learning? Not on file 08/04/2022 No 08/04/2022 No 08/04/2022 Digital Access Answer Date Recorded No 08/30/2022 No 08/30/2022 Reliable internet access at home? Not on file 08/30/2022 Device with a working camera? Not on file Comments Unknown Sex and Gender Information Value Date Recorded Sex Assigned at Not on file Legal Sex Female 10:48 AM EDT Gender Identity Not on file Sexual Orientation Not on file documented as of this encounter Plan of Treatment Upcoming Encounters Date Type Department Care Team (Late st Contact Info) Description 06/18/2025 11:00 AM EDT Office Visit [facility] Endocrinology [address] [place] [address] Ann Carrillo MD [address] [place] [address] 09/15/2025 11:00 AM EDT Office Visit [facility] Endocrinology [facility] [address] [place] [address] Felicita Morgan PA-C [address] [place] [phone] 01/06/2026 10:20 AM EDT Office Visit [facility] Endocrinology [address] [place] [address] Ann Carrillo MD [address] [place] [phone] documented as of this encounter Procedures Procedure Name Priority Date/Time Associated Diagnosis Comments XR SHOULDER 2 VIEWS (LEFT) Urgent/patient waiting 08/30/2019 11:25 AM EDT Acute pain of left shoulder documented in this encounter Results * XR SHOULDER 2 VIEWS (LEFT) (08/30/2019 11:25 AM EDT) Anatomical Region Laterality Modality Shoulder Left Radiographic Elenita ging 08/30/2019 11:2 9 AM EDT Impressions 08/30/2019 11:32 AM EDT 1. No acute fracture or dislocation. 2. Osteopenia and osteoarthritis. POS - [id number] Narrative 08/30/2019 11:32 AM EDT HISTORY: As above. COMPARISON: None. LEFT SHOULDER RADIOGRAPH FINDINGS: Three views obtained. Osteopenia. No acute fracture or malalignment. Moderate upper mid clavicular mild glenohumeral joint space narrowing and osteophytes. Small humeral head degenerative cysts. No destructive bone lesions. No rotator cuff calcifications. Imaged left lung is clear. Procedure Note Virginia Rivas MD - 08/30/2019 HISTORY: As above. COMPARISON: None. LEFT SHOULDER RADIOGRAPH FINDINGS: Three views obtained. Osteopenia. No acute fracture or malalignment. Moderate upper midclavicular mild glenohumeral joint space narrowing and osteophytes. Smallhumeral head degenerative cysts. No destructive bone lesions. No rotatorcuff calcifications. Imaged left lung is clear. IMPRESSION: 1. No acute fracture or dislocation. 2. Osteopenia and osteoarthritis. POS - [id number] Nguyen Victoria DANCE CHOREOGRAPHER IMG XR UPPER EXTREMITY Final Result documented in this encounter Visit Diagnoses Not on filedocumented in this encounter Care Teams Field Account Director Relationship Specialty Start Date End Date Monique White MD [address] [place] [address] PCP - General Internal Medicine 08/30/19 documented as of this encounter Additional Source Comments The information contained in this document represents components of the legal health record. It is not the complete legal health record.[facility]
--- OUTSIDE RECORDS SUMMARY | 2022-09-10 11:20 | XMS_ITS | Encounter Summary ---
Author Organization [facility] Address [address] [facility] [address] [place] [address] Phone Care Team Providers Care Therapeutic Case Manager Name Role Phone Monique White MD Primary Care Provider [phone] Sohail Penaloza MD Unavailable [phone] Alfred Guevara DPM, Erik Unavailable [phone] Encounter Details Date Type Department Care Team (Late st Contact Info) Description 09/10/2022 12:20 PM EDT Hospital Encounter [facility] [address] [place] [address] Mat Beauchamp PA-C [address] [place] [address] [email or web address] Social History Tobacco Use Types Packs/Day Years Used Date Smoking Tobacco: Former Cigarettes 1 7 1 953 - 1960 Passive Smoke Exposure: Past Smokeless Tobacco: Never [...] Description 06/18/2025 11:00 AM EDT Office Visit [facility] Endocrinology [address] [place] [address] Ann Carrillo MD [address] [place] [address] 09/15/2025 11:00 AM EDT Office Visit [facility] Endocrinology [address] [place] [address] Felicita Morgan PA-C [address] [place] [address] 01/06/2026 10:20 AM EDT Office Visit [facility] Endocrinology [address] [place] [address] Ann Carrillo MD [address] [place] [address] documented as of this encounter Procedures Procedure Name Priority Date/Time Associated Diagnosis Comments XR CHEST PA AND LATERAL 2 VIEWS Routine 09/10/2022 12:39 PM EDT Pneumonia of left lower lobe due to infectious organism documented in this encounter Results * XR CHEST PA AND LATERAL 2 VIEWS (09/10/2022 12:39 PM EDT) Anatomical Region Laterality Modality Chest Computed Radiogr aphy 09/10/2022 12:4 3 PM EDT Impressions 09/10/2022 12:46 PM EDT 1. Left base ill-defined opacities could represent atelectasis, pneumonia. Follow- up radiographs recommended in about 6 weeks to confirm resolution. 2. Trace right effusion. Right base atelectasis. 3. Mildly enlarged cardiac silhouette. Narrative 09/10/2022 12:46 PM EDT XR CHEST PA AND LATERAL 2 VIEWS COMPARISON: XR SHOULDER 2 OR MORE VIEWS (LEFT) FINDINGS: Devices/Tubes/Lines: None. Lungs: Left base ill-defined opacities. Right base atelectasis. Pleura: Trace right effusion. No pneumothorax. Heart/Mediastinum: Mildly enlarged cardiac silhouette. Atherosclerotic aorta. Bones/Soft Tissues: No acute findings. Procedure Note Chaparro Christianson MD, MPH - 09/10/2022 XR CHEST PA AND LATERAL 2 VIEWS COMPARISON: XR SHOULDER 2 OR MORE VIEWS (LEFT) FINDINGS: Devices/Tubes/Lines: None. Lungs: Left base ill-defined opacities. Right base atelectasis. Pleura: Trace right effusion. No pneumothorax. Heart/Mediastinum: Mildly enlarged cardiac silhouette. Atheroscleroticaorta. Bones/Soft Tissues: No acute findings. IMPRESSION: 1. Left base ill-defined opacities could represent atelectasis,pneumonia. Follow-up radiographs recommended in about 6 weeks to confirmresolution. 2. Trace right effusion. Right base atelectasis. 3. Mildly enlarged cardiac silhouette. Mat Beauchamp PA-C IMG XR CHEST Final Result documented in this encounter Visit Diagnoses Not on filedocumented in this encounter Care Teams Therapeutic Case Manager Relationship Specialty Start Date End Date Monique White MD [address] [place] [address] PCP - General Internal Medicine 08/30/19 Sohail Penaloza MD [address] [address] Nephrology 07/14/22 Arturo Simon DPM [address] [place] [address] Podiatry 07/14/22 documented as of this encounter Additional Source Comments The information contained in this document represents components of the legal health record. It is not the complete legal health record.[facility]
--- OUTSIDE RECORDS SUMMARY | 2023-11-13 05:45 | XMS_ITS ---
Author Organization [facility] Address [address] [place] [address] Care Team Providers Care Master [place] Name Role Phone Monique White Primary Care Provider Unavailabl Arturo Hoyos [phone] REASON FOR VISIT Seen Sooner Encounters Encounter Location Date Provider Diagnosis [facility] [address] [place] [address] 11/13/2023 Arturo Simon Plan Of Treatment No Information Progress Notes * Gerri SCHWARTZ RDOB:[birth year] (89 yo F)Acc No.[id number]:11/13/2023 Progress Note Patient: Gerir MELO Provider: Mook Simon DPM :1935 A ge:88 Y S ex:Female Date:11/13/2023 Address: [address] [id number] Pcp:Monique White Subjective: * Chief Complaints: * 1 . Seen Sooner. * Medical History: Objective: * Vitals: Assessment: Plan: * Treatment: * Images: * The named appointment provid er may or may not be the originator of this progress note, and it is not deemed complete until electronically signed by the appointment provider. Sign off status: Pending * Provider: Mook Simon DPM Date: 0 11/13/2023 Generated for Printi ng/Faxing/eTransmitting on: 06/04/2024 10:06 PM EST
--- OUTSIDE RECORDS SUMMARY | 2024-05-06 05:45 | XMS_ITS ---
Author Organization [facility] Address [address] [place] [id number] Care Team Providers Care Temper Mill Operator Name Role Phone Monique White Primary Care Provider Unavailabl Arturo Hoyos [phone] Encounters Encounter Location Date Provider Diagnosis [facility] [address] [place] [address] 05/06/2024 Arturo Simon Plan Of Treatment No Information Progress Notes * Gerri SCHWARTZ RDOB:[birth year] (89 yo F)Acc No.[id number]:05/06/2024 Progress Note Patient: Gerri MELO Provider: Mook Simon DPM :1935 A ge:88 Y S ex:Female Date:05/06/2024 Address: [id number] Pcp:Monique White Subjective: * Chief Complaints: * * Medical History: Objective: * Vitals: Assessment: Plan: * Treatment: * Images: * The named appointment provid er may or may not be the originator of this progress note, and it is not deemed complete until electronically signed by the appointment provider. Sign off status: Pending * Provider: Mook Simon DPM Date: 05/06/2024 Generated for Jaquani dontae/Faricharg/eTransmitting on: 06/04/2024 10:05 PM EST
--- OUTSIDE RECORDS SUMMARY | 2024-08-08 05:00 | XMS_ITS ---
Author Organization [facility] Address [address] [place] [address] Care Team Providers Care Solutions Specialist Name Role Phone Monique White Primary Care Provider Unavailabl Arturo Hoyos [phone] Hernandez Encounters Encounter Location Date Provider Diagnosis [facility] [address] [place] [address] 08/08/2024 Arturo Simon Plan Of Treatment No Information Progress Notes * Gerri SCHWARTZ RDOB:[birth year] (89 yo F)Acc No.[id number]:08/08/2024 Progress Note Patient: Gerri MELO Provider: Mook Simon DPM :1935 A ge:88 Y S ex:Female Date:08/08/2024 Address: [id number] Pcp:Monique White Subjective: * Chief Complaints: * [...] Simon DPM Date: 0 08/08/2024 Generated for Printi ng/Faxing/eTransmitting on: 06/04/2024 10:04 PM EST
--- OUTSIDE RECORDS SUMMARY | 2024-11-28 06:15 | XMS_ITS ---
Author Organization [facility] Address [address] [place] [address] Care Team Providers Care Door Worker Name Role Phone Monique White Primary Care Provider Arturo Brown Unavailable [phone] Allergies Allergen (clinical drug ingredient) Drug/Non Drug Allergy documented on EMR Reaction Allergy Type Onset Date Status codeine Codeine rapid heart beat Drug Allergy Active Medications Medication SIG (Take, Route, Frequency, Duration) Notes Start Date End Date Status Cytomel Active Furosemide Active Metoprolol Tartrate 100 MG 1 tablet Oral ly Once a day; Duration: 30 day(s) Active Simvastatin Active Xarelto Active Losartan Potassium N ot-Taking Crestor 2.5 MG 1 tablet Orally Once a day; Duration: 30 day(s) Not-Taking Toujeo Max SoloStar 300 UNIT/ML as directed Subcutaneous Active Succimer Active hydroCHLOROthiazide Not-Taking Amiodarone HCl 200 MG 1 tablet Orally On ce a day Active Extra Depth Orthopedic Shoes (1 Pair) with Customized Heat Molded Multidensity Innersoles (3 Pair) as directed Dx: 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), Hammertoe Foot Deformity (M20.41,M20.42), Preulcerative Skin Lesion(s) (L85.1) Active HumaLOG Not-Taking amLODIPine Besylate Not-Taking Cozaar Not-Taking Encounters Encounter Location Date Provider Diagnosis [facility] [address] [place] [address] 11/28/2024 Arturo Simon Plan Of Treatment No Information Progress Notes * Gerri SCHWARTZ RDOB:[birth year] (89 yo F)Acc No.[id number]:11/28/2024 Progress Note Patient: Gerri MELO Provider: Mook Simon DPM :1935 A ge:89 Y S ex:Female Date:11/28/2024 Address: [address] [place], [id number] Pcp:Monique White Subjective: * Chief Complaints: * * Medical History: C holesterol, Transfusions, Joint implants/screws, Osteoporosis, Measles, High blood pressure, Diverticulitis, Chicken pox, Cataracts, Back, hip, knee pain, Arthritis, Sciatica, Endoscopy 10/2018, type I diabetes, Urinary tract infection. 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 Objective: * Vitals: Assessment: Plan: * Treatment: * Images: * The named appointment provid er may or may not be the originator of this progress note, and it is not deemed complete until electronically signed by the appointment provider. Sign off status: Pending * Provider: Mook Simon DPM Date: 0 11/28/2024 Generated for Awilda diggs/Lee/eTransmitting on: 1 06/04/2024 10:07 PM EST
--- OUTSIDE RECORDS SUMMARY | 2025-03-10 06:30 | XMS_ITS ---
Author Organization [facility] Address [address] [place] [id number] Care Team Providers Care Rfid Systems Architect Name Role Phone Monique White Primary Care Provider Unavailabl Arturo Hoyos [phone] Encounters Encounter Location Date Provider Diagnosis [facility] [address] [place] [address] 03/10/2025 Arturo Simon Plan Of Treatment No Information Progress Notes * Gerri SCHWARTZ RDOB:[birth year] (89 yo F)Acc No.[id number]:03/10/2025 Progress Note Patient: Gerri MELO Provider: Mook Simon DPM :1935 A ge:89 Y S ex:Female Date:03/10/2025 Address: [address] [address] [id number] Pcp:Monique White Subjective: * Chief Complaints: * * Medical History: Objective: * Vitals: Assessment: Plan: * Treatment: * Images: * The named appointment provid er may or may not be the originator of this progress note, and it is not deemed complete until electronically signed by the appointment provider. Sign off status: Pending * Provider: Mook Simon DPM Date: 05/11/2024 Generated for Awilda diggs/Lee/eTransmitting on: 06/04/2024 10:07 PM EST
--- NOTE | ~2025-04-03 | CT_ITS ---
CLINICAL HISTORY: AMS on xarelto CT head without contrast Comparison: Head CT from 02/13/2025 Findings: No acute intracranial hemorrhage. No midline shift or hydrocephalus. 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 Mild volume loss remains generalized. Mild white matter lesions suggested as can be associated with small-vessel ischemic disease. Vascular calcifications are redemonstrated. Imaged nasal bone deformities appear old/chronic. Metal artifacts noted including from metal of the mouth. Fluid and mucosal thickening includes multiple paranasal sinuses. Imaged mastoid air cells are well aerated with asymmetric pneumatization of the petrous apices. IMPRESSION: No acute intracranial abnormality by CT. This document has been electronically signed by: Michael Mares MD on 04/04/2025 00:21:33
[2025-04-03 21:21] VITALS: BP 168/95; BP 191/78; PULSE 84; O2SAT 97; BMI 28.3
[2025-04-03 21:25] VITALS: BP 168/95
--- NOTE | 2025-04-03 21:39 | MHC.EDTECH ---
Pt comabtive/hitting this tech when attempting to obtain o2 reading or temp, only able to get BP/HR reading. RN aware. This tech and pv installer tech Suzanne able to change Pt out of soiled brief and placed in hospital gown. Repositioned in bed
--- NOTE | 2025-04-03 21:53 | ED.AMS ---
HPI - Altered Mental Status General Chief Complaint: Altered Mental Status Stated Complaint: increased confusion, ?uti Time Seen by Provider: 04/03/25 21:28 Source: patient, family, EMS, RN notes reviewed and old records reviewed Mode of arrival: EMS Limitations: altered mental status History of Present Illness ED Provider: Dr. Danelle Chavez HPI narrative: 89-year-old female [facility] resident brought in by EMS for acute increase in confusion compared with her baseline, according to her daughter who is at bedside. Onset was noted ?last night around 2100? when she began calling out family members? names and displaying repetitive speech. Today staff reported the patient was ?really acting out,? prompting transfer. She has a history of similar episodes with infections, particularly UTIs, though there was some uncertainty expressed by daughter regarding the current diagnosis ( we really think she has a UTI, but they wouldn't give antibiotics ). Associated information from [facility]: - Urine specimen was obtained yesterday; no definitive infectious process noted. - No fever, cough, or vomiting observed. - Medication adherence generally good; no medications taken yet today due to agitation. - Poor oral intake today ? no lunch or supper, tolerated one protein drink. - Had a large soft bowel movement today; stool not loose. - Oxygen saturation at facility 95% on room air; being monitored. - No reported falls or injuries. MOLST accompanies patient indicating DNR/DNI status. Patient herself reports ?not feeling good? but denies pain, nausea, or dyspnea at this time. Related Data Home Medications ?Medication ?Instructions ?Recorded ?Confirmed travoprost 0.004 % eye drops 1 drp ophthalmic (eye) BEDTIME 06/01/20 02/24/25 acetaminophen 500 mg tablet 1,000 mg PO TID Pain 08/17/21 02/24/25 cholecalciferol (vitamin D3) 25 25 mcg PO DAILY 01/01/23 02/24/25 mcg (1,000 unit) capsule insulin lispro 100 unit/mL 1 sliding scale dose subcut TIDAC 11/17/23 02/24/25 subcutaneous pen (Humalog KwikPen (U-100) Insulin) calcitriol 0.25 mcg capsule 0.25 mcg PO Q48H 04/20/24 02/24/25 bisacodyl 10 mg rectal suppository 10 mg MD DAILY PRN Constipation 07/12/24 02/24/25 magnesium hydroxide 400 mg/5 mL 30 ml PO DAILY PRN Constipation 07/12/24 02/24/25 oral suspension (Milk of Magnesia) sennosides 8.6 mg-docusate sodium 1 tab-cap PO BID 07/12/24 02/24/25 50 mg tablet (Senna with Docusate Sodium) sodium phosphates 19 gram-7 118 ml MD DAILY PRN Constipation 07/12/24 02/24/25 gram/118 mL enema (Fleet Enema) vit C 250 mg-vit E 90 mg-zinc 40 1 tab PO DAILY 07/12/24 02/24/25 mg-copper 1 mh-rnsfue-hzlwgh capsule (PreserVision AREDS-2) guaifenesin 400 mg tablet (Mucus 400 mg PO Q6H PRN Cough/Nasal 09/22/24 02/24/25 Relief) Congestion ipratropium 0.5 mg-albuterol 3 mg 3 ml inhalation Q6H PRN 09/22/24 02/24/25 (2.5 mg base)/3 mL nebulization Non-Productive Cough soln amiodarone 200 mg tablet 100 mg PO DAILY 01/07/25 02/24/25 Lactobacillus acidophilus 1 1,000 mmu cells PO BID 02/13/25 02/24/25 billion cell tablet dextrose 40 % oral gel (Glucose 15 g PO Q15M PRN BLOOD GLUC<51 02/13/25 02/24/25 Gel) dextrose 40 % oral gel (Glucose 15 g PO Q15M PRN BLOOD GLUCOSE 02/13/25 02/24/25 Gel) 51-70 furosemide 20 mg tablet 20 mg PO DAILY PRN Weight increase 02/13/25 02/24/25 of 3lbs. glucagon 1 mg solution for 1 mg subcut Q15M PRN Hypoglycemia 02/13/25 02/24/25 injection levothyroxine 200 mcg tablet 200 mcg PO DAILY@0600 02/13/25 02/24/25 metoprolol tartrate 25 mg tablet 12.5 mg PO DAILY PRN Hypertension 02/13/25 02/24/25 Previous Rx's ?Medication ?Instructions ?Recorded flash glucose sensor (FreeStyle #1 ea 05/23/23 Madeline 14 Day Sensor kit) flash glucose sensor (FreeStyle #6 ea 05/23/23 Madeline 14 Day Sensor kit) pen needle, diabetic 32 gauge x #400 ea 09/17/23 5/32 (BD Eveline 2nd Gen Pen Needle) lactulose 10 gram/15 mL oral 30 ml PO DAILY PRN for 02/01/24 solution constipation #946 mL simvastatin 10 mg tablet 10 mg PO BEDTIME #90 tabs 06/16/24 insulin glargine U-300 conc 300 10 unit (0.0333 mL) subcut DAILY 07/14/24 unit/mL (1.5 mL) subcutaneous pen #4.5 mL (Toujeo SoloStar U-300 Insulin) metoprolol succinate 100 mg 100 mg PO DAILY 90 days #90 tabs 07/22/24 tablet,extended release 24 hr rivaroxaban 15 mg tablet (Xarelto) 15 mg PO DAILY@1700 #90 tabs 09/24/24 Held on 02/25/25. Instructions: Resume on 02/28/25. Pt's Xarelto should be resumed on Sunday, 02/28 unless pt noted to have recurrent bleed. furosemide 40 mg tablet 40 mg PO BID@0900,1800 #1 tab 02/18/25 melatonin 3 mg tablet 6 mg (2 x 3 mg) PO BEDTIME PRN 02/18/25 Insomnia #1 tab Allergies Allergy/AdvReac Type Severity Reaction Status Date / Time codeine Allergy Intermediate TACHYCARDIA Verified 04/03/25 21:24 nitrofurantoin (Macrobid) Allergy Unknown confusion Verified 04/03/25 21:24 pravastatin Allergy Unknown Unknown Verified 04/03/25 21:24 rosuvastatin (Crestor) Allergy Unknown Unknown Verified 04/03/25 21:24 Sulfa (Sulfonamide Allergy Unknown unknown Verified 04/03/25 21:24 Antibiotics) sulfamethoxazole (From Allergy Unknown Unknown Verified 04/03/25 21:24 Bactrim) trimethoprim (From Bactrim) Allergy Unknown Unknown Verified 04/03/25 21:24 amlodipine AdvReac Intermediate leg Verified 04/03/25 21:24 swelling digoxin AdvReac Intermediate Confusion Verified 04/03/25 21:24 Review of Systems Review of Systems: As per HPI, full review of systems performed and negative but for the above mentioned pertinent positives and negatives. [facility] Past Medical History Medical History Pyuria Pleural effusion Pleural effusion Congestive heart failure Chronic combined systolic and diastolic CHF (congestive heart failure) Hypothyroidism Constipation Transaminitis Congestive heart failure Ulcer of right ankle Recurrent UTI Urinary tract infection with fever Persistent atrial fibrillation Left thigh pain Abdominal mass, LUQ (left upper quadrant) Iliotibial band syndrome of left side UTI (urinary tract infection) Herpes zoster Orthostatic hypotension Acute hyponatremia Weakness COVID-19 Breast asymmetry Atrial fibrillation with rapid ventricular response Hyperkalemia Essential hypertension Atherosclerotic cardiovascular disease Chronic heart failure with preserved ejection fraction (HFpEF) Iliotibial band syndrome of right side Disc degeneration, lumbar Cognitive dysfunction 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 Atrial fibrillation Osteopenia Hypothyroid Spinal stenosis of lumbar region Degenerative disc disease, lumbar Type 2 diabetes mellitus with hyperglycemia Surgical History History of removal of cyst History of appendectomy History of eye surgery History of cataract surgery History of cholecystectomy History of section History of knee replacement History of hip replacement Family History Family History Father CVD (cardiovascular disease) Mother CVD (cardiovascular disease) Stroke Social History Social History Household Members: Unknown / Unable to assess Household Members Other:: son comes 3 days a week, daughter lives 5 minutes away visits frequently Housing: Long Term Do you presently have visiting nurse or other home services: Yes Unable to assess alcohol history related to: Unknown Alcohol intake: never Comment: 1:! sitter in room Patient Tobacco Use Status: Former Tobacco user Tobacco use type: Cigarette Years Smoked: <1 Smoked in Last 30 Days: No e-Cigarette/Vaping Use: Former Use Second Hand Smoke Exposure: No Use of substances other than those prescribed or required for medical reasons: Unknown Advance Directives: Yes Advance Directives on File: Yes Advance Directives Date on File: 08/29/21 Do you have a plan to hurt others: No Plan service: No Current occupational status: retired Cognitive needs: Yes (Walker) Hearing needs: No Vision needs: Yes Physical Exam ED Exam Exam: GENERAL: Chronically ill-appearing, agitated, grabbing a out at staff. SKIN: Normal skin color for ethnicity, warm, dry, no rashes noted. HEENT: Normocephalic, atraumatic, no stridor, posterior oropharynx nonerythematous, EOMI. NECK: Soft, supple, full ROM, midline structures nontender, no step-offs, no deformities, no lymphadenopathy. CHEST: Heart regular irregularly irregular, no murmurs, symmetric chest rise and fall. PULMONARY: Clear to auscultation bilaterally, no labored breathing, no wheezes/rhales/ rhonchi. ABDOMINAL: Soft, nondistended, nontender, positive bowel sounds in all quadrants. : Deferred. MUSCULOSKELETAL: Normal tone, full range of motion, no deformities, no peripheral edema. NEURO: Alert and oriented to person, CN II through XII intact, no focal neurologic deficits. PSYCHIATRIC: Flat affect, agitated at times. Vital Signs: Vital Signs - 24 hr 04/03/25 21:21 04/03/25 21:25 04/04/25 00:00 Temperature 95.2 F L Pulse Rate Respiratory Rate Blood Pressure 168/95 H 168/95 H Pulse Oximetry Oxygen Delivery Method 04/04/25 01:19 04/04/25 02:27 04/04/25 03:10 Temperature 95.0 F L 95.1 F L Pulse Rate 78 Respiratory Rate 18 Blood Pressure 117/53 L Pulse Oximetry 95 Oxygen Delivery Method Room Air 04/04/25 03:56 04/04/25 06:11 04/04/25 06:57 Temperature 95.5 F L 96.8 F 97.2 F Pulse Rate 78 78 75 Respiratory Rate 14 18 13 Blood Pressure 148/77 H 147/70 H 136/55 L Pulse Oximetry 95 96 96 Oxygen Delivery Method Room Air Room Air Room Air 04/04/25 08:00 Temperature 97.7 F Pulse Rate 71 Respiratory Rate 14 Blood Pressure 107/45 L Pulse Oximetry 96 Oxygen Delivery Method Room Air BMI result Body Mass Index 28.3 Medications Administered Discontinued Medications Generic Name Dose Route Start Last Admin Trade Name Freq PRN Reason Stop Dose Admin Olanzapine 10 mg 04/03/25 22:39 04/03/25 23:23 Olanzapine 10 Mg Vial IM 04/03/25 22:40 10 mg STAT STA Administration Olanzapine 10 mg 04/04/25 02:58 04/04/25 03:07 Olanzapine 10 Mg Vial IM 04/04/25 02:59 10 mg STAT STA Administration Medical Decision Making Medical Decision Making MDM Narrative: 89-year-old female with multiple comorbidities (DM, atrial fibrillation, recurrent UTIs) presenting with acute change in mental status. DNR/DNI per MOLST. Differential diagnosis for AMS is incredibly broad and includes infection, intracranial process such as hemorrhage, stroke or mass, electrolyte abnormality, hypercarbia, hypoxia, toxic encephalopathy, among many others. Broad-based workup was initiated to further evaluate the etiology of patient's symptoms based on the above exam and history. Problem #1: Confusion / Altered Mental Status Assessment: Acute delirium. UTI suspected by [facility] staff, but diagnosis not confirmed at this time. Recent large soft bowel movement noted. No fever, cough, or vomiting reported. Plan: - Monitor oxygen saturation as reported by [facility] (95% on room air); daughter agreeable to simple supportive measures such as oxygen if needed. - Consider further evaluation for infection as clinically indicated. Patient severely agitated, requiring sedation. Ultimately, workup is showing no significant evidence of infectious process. She did have an episode of hypothermia that required Pradeep Hugger however, she responded very well to this and is now maintaining a normal temperature. She has never been hypotensive. She has negative imaging of the brain, no evidence of influenza, no significant electrolyte abnormality. Her TSH is mildly elevated but has a normal free T4. Do not feel this is myxedema coma whatsoever. There is only trace bacteria in the urine. At this point I would hold off on treating the urinalysis and instead await her urine culture result. Plan for discharge back to the [facility] for further care. Differential Diagnosis Differential Diagnoses: The differential diagnosis associated with the presentation includes (As above) Admission/Observation Consideration of admission/observation: Escalation of care including admission/observation considered Lab Data [facility] Lab Attestation statement: I reviewed the patient's lab results. 04/03/25 23:22 04/03/25 23:22 Labs: Lab Results 04/03/25 04/04/25 04/04/25 Range/Units 23:22 03:12 03:30 WBC 7.3 (4.8-10.8) X10*3/uL RBC 3.72 L (4.20-5.50) X10*6/uL Hgb 11.6 L (12.0-16.0) g/dl Hct 35.7 L (37.0-47.0) % MCV 96.0 (80.0-98.0) fL MCH 31.2 (27.0-33.0) pg MCHC 32.5 (31.0-35.0) g/dl RDW 17.2 H (11.0-16.0) % Plt Count 302 (160-400) X10*3/uL MPV 10.1 (9.4-12.3) fL Immature Gran % (Auto) 0.4 (0.0-0.4) % Neut % (Auto) 66.3 (45-73) % Lymph % (Auto) 11.4 L (20-40) % [place] % (Auto) 10.3 (2-11) % Eos % (Auto) 10.2 H (0-4) % Baso % (Auto) 1.4 (0-2) % Lymph # (Auto) 0.8 L (1.2-4.9) X10*3/uL [place] # (Auto) 0.8 (0.1-1.2) X10*3/uL Eos # (Auto) 0.7 H (0.0-0.4) X10*3/uL Baso # (Auto) 0.1 (0.0-0.2) X10*3/uL Abs Immat Gran (auto) 0.03 (0.00-0.03) X10*3/uL Absolute Neuts (auto) 4.8 (2.0-8.3) x10*3/uL Absolute Nucleated RBC 0.000 (0.0-0.012) X10*3/uL Nucleated RBC % (auto) 0.0 (0.0-0.2) /100WBC PT 14.4 H (11.2-13.5) SEC INR 1.2 H (0.9-1.1) Sodium 141 (135-145) mmol/L Potassium 4.0 (3.3-5.1) mmol/L Chloride 103 (96-108) mmol/L Carbon Dioxide 29 (22-29) mmol/L Anion Gap 13 (12-20) BUN 30 H (9-16) mg/dL Creatinine 1.21 (0.5-1.4) mg/dL Estim Creat Clear Calc 31.8 Estimated GFR 42 Random Glucose 206 H (60-115) mg/dL Lactic Acid 1.2 (0.5-2.0) mmol/L Calcium 9.4 (8.4-10.2) mg/dL Magnesium 2.5 (1.6-2.6) mg/dL Total Bilirubin 0.4 (0.0-1.0) mg/dL AST 47 H (5-31) U/L ALT 45 H (0-31) U/L Alkaline Phosphatase 144 H (39-117) U/L Total Protein 6.9 (6.5-8.0) g/dL Albumin 4.0 (3.5-5.0) g/dL TSH 13.15 H (0.32-4.0) uIU/mL Free T4 1.23 (0.71-1.85) ng/dL Urine Color Yellow Urine Appearance Clear Urine pH 7.0 (5.0-9.0) Ur Specific [place] 1.015 (1.005-1.025) Urine Protein 30 (1+) H (Neg-Trace) mg/dL Urine Glucose (UA) 100 H (Negative) mg/dL Urine Ketones Negative (Negative) mg/dL Urine Blood Negative (Negative) Urine Nitrite Negative (Negative) Ur Leukocyte Esterase Moderate (2+) H (Negative) Urine RBC 0-2 (0-2) /HPF Urine WBC 21-50 H (0-5) /HPF Ur Squamous Epith Cells 0-2 (0-2) /HPF Urine Bacteria Trace (None Seen) Hyaline Casts 0-2 (0-2) /LPF Influenza Type A (PCR) NEGATIVE (Negative) Influenza Type B (PCR) NEGATIVE (Negative) RSV RNA Qual (PCR) NEGATIVE (Negative) SARS-CoV-2 RNA (RT-PCR) NEGATIVE (Negative) Independent Interpretation I performed an independent interpretation of an: EKG and CT Scan Interpretation: No evidence of acute intracranial process on her head CT, she has an arachnoid cyst which is baseline for her. Radiology Impression Discussion of test interpretation with radiology: I have reviewed the radiologist's reading. Independent Historian Clinical information obtained from an independent historian. History obtained from or confirmed by: EMS and Other (Daughter) External Record Review External record reviewed: Inpatient record, Outpatient record and Prior outpatient labs Prescription Management I considered prescription management with: Antibiotic Chronic Conditions Patient?s care impacted by: Diabetes, Hypertension and Other (Atrial fibrillation, dementia) Social Determinants Patient?s care significantly limited by Social Determinants of Health including: Other Social Determinant of Health Critical Care Time Critical Care Time Critical Care Time: Yes Total Critical Care Time: 35 Attestation: CRITICAL CARE TIME: 35 minutes of critical care time was spent in direct patient care at the bedside or in the immediate area with this patient. Critical care was necessary to treat or prevent imminent or life-threatening deterioration of the following conditions multiple sedating medications for agitated delirium due to dementia. This patient is high risk for decompensation and/or . This time was spent assessing and managing the patient, interpreting labs and imaging, coordinating care with other medical providers, gathering history from either the patient, their representatives, EMS or chart review, and discussing management with patient's daughter. Discharge Plan Discharge Clinical Impression: Delirium with dementia, Acute dehydration Patient Disposition: er [facility] Instructions: Acute Delirium (ED) Additional Instructions: There is no evidence of infection today. However, we will wait for the urine culture to come back to see if she needs to be treated for UTI. She is on prophylactic estrogen cream to help with UTI prevention. Consider use of antipsychotics to help with agitation. She responded well to Zyprexa. Return to the emergency department with any new or worsening symptoms. Prescriptions: No Action cholecalciferol (vitamin D3) 25 mcg (1,000 unit) capsule 25 mcg PO DAILY (DME) FreeStyle Madeline 14 Day Sensor Kit See Rx Instructions .ROUTE .MEDSUPPLY Qty: 1 6RF Rx Instructions: Dx: E11.65 As directed, 14 days (DME) FreeStyle Madeline 14 Day Sensor Kit See Rx Instructions .Route Qty: 6 3RF Rx Instructions: As directed lactulose 10 gram/15 mL solution 30 ml PO DAILY PRN (Reason: for constipation) Qty: 946 0RF simvastatin 10 mg tablet 10 mg PO BEDTIME Qty: 90 0RF metoprolol succinate 100 mg tablet extended release 24 hr 100 mg PO DAILY 90 Days Qty: 90 0RF travoprost 0.004 % drops 1 drp ophthalmic (eye) BEDTIME acetaminophen 500 mg Tablet 1,000 mg PO TID insulin lispro [Humalog KwikPen Insulin] 100 unit/mL insulin pen 1 sliding scale dose subcut TIDAC Rx Instructions: 0-99 = no insulin 100-150 = 2 units 151 - 200 = 3 units 201 -250 = 4 units 251 - 300 = 5 units 301 - 350 = 7 units 351 - 400 = 8 units 401 - 450 = 10 units 451- 500 = 11 units 501 + = 15 units sennosides-docusate sodium [Senna with Docusate Sodium] 8.6-50 mg Tablet 1 tab-cap PO BID PreserVision AREDS-2 250-90-40-1 mg Capsule 1 tab PO DAILY magnesium hydroxide [Milk of Magnesia] 400 mg/5 mL Suspension 30 ml PO DAILY PRN (Reason: Constipation) bisacodyl 10 mg Suppository 10 mg MD DAILY PRN (Reason: Constipation) Fleet Enema 19-7 gram/118 mL Enema 118 ml MD DAILY PRN (Reason: Constipation) insulin glargine U-300 conc [Toujeo SoloStar U-300 Insulin] 300 unit/mL (1.5 mL) insulin pen 10 unit subcut DAILY Qty: 4.5 0RF Rx Instructions: or as directed ipratropium-albuterol 0.5 mg-3 mg(2.5 mg base)/3 mL Solution For Nebulization 3 ml INHALATION Q6H PRN (Reason: Non-Productive Cough) guaifenesin [Mucus Relief] 400 mg Tablet 400 mg PO Q6H PRN (Reason: Cough/Nasal Congestion) Xarelto 15 mg Tablet 15 mg PO DAILY@1700 Qty: 90 0RF dextrose [Glucose Gel] 40 % Gel 15 g PO Q15M PRN (Reason: BLOOD GLUCOSE 51-70) Rx Instructions: FOR BLOOD GLUCOSE 51 TO 70 TREAT IF CONSCIOUS ADMINISTER ORAL NEEDED FOR HYPOGLYCEMIA. dextrose [Glucose Gel] 40 % Gel 15 g PO Q15M PRN (Reason: BLOOD GLUC<51) Rx Instructions: FOR BLOOD GLUCOSE LESS THEN 51, IF CONCIOUS TREAT AND ADMINISTER. levothyroxine 200 mcg Tablet 200 mcg PO DAILY@0600 furosemide 20 mg Tablet 20 mg PO DAILY PRN (Reason: Weight increase of 3lbs.) glucagon 1 mg Recon Soln 1 mg SUBCUT Q15M PRN (Reason: Hypoglycemia) Rx Instructions: until target blood sugar attained metoprolol tartrate 25 mg Tablet 12.5 mg PO DAILY PRN (Reason: Hypertension) Rx Instructions: Give 12.5mg if SBP greater then 180 and distolic greater then 100 as needed for 110. Lactobacillus acidophilus 1 billion cell Tablet 1,000 mmu cells PO BID Rx Instructions: 1 mg bid furosemide 40 mg Tablet 40 mg PO BID@0900,1800 Qty: 1 0RF Protocol: Hold for SBP< HOLD for SBP < : 90 melatonin 3 mg Tablet 6 mg PO BEDTIME PRN (Reason: Insomnia) Qty: 1 0RF calcitriol 0.25 mcg capsule 0.25 mcg PO Q48H (DME) pen needle, diabetic [BD Eveline 2nd Gen Pen Needle] 32 gauge x 5/32 needle See Rx Instructions .ROUTE .COMPLEX Qty: 400 3RF Dose Instruction: USEN TO INJECT INSULIN FOUR TIMES DAILY Rx Instructions: USEN TO INJECT INSULIN FOUR TIMES DAILY amiodarone 200 mg tablet 100 mg PO DAILY Print Language: Salvadorean
--- OUTSIDE RECORDS SUMMARY | 2025-04-03 22:05 | XMS_ITS | Encounter Summary ---
Author Organization [facility] Address [address] [place] [id number] Care Team Providers Care Surveillance Manager Name Role Phone Torrey Kwok MD Primary Care Provider [phone] Encounter Details Date Type Department Care Team (Late st Contact Info) Description 01/30/2025 Lab Requisition [facility] - Main Lab [address] [facility] [place] [address] Social History Tobacco Use Types [...] Diagnoses Not on filedocumented in this encounter Additional Health Concerns Infection Onset Date Last Indicated Resolved Time C. difficile Rule-Out 03/12/2025 03/11/20252024 11:34 AM EST documented as of this encounter Care Teams Surveillance Manager Relationship Specialty Start Date End Date Torrey Kwok MD [address] [place] [address] PCP - General Geriatric Medicine 04/25/24 documented as of this encounter
--- OUTSIDE RECORDS SUMMARY | 2025-04-03 22:05 | XMS_ITS | Encounter Summary ---
Author Organization [facility] Address [address] [place] [id number] Care Team Providers Care Manager Engagement Name Role Phone Torrey Kwok MD Primary Care Provider [phone] Encounter Details Date Type Department Care Team (Late st Contact Info) Description 01/03/2025 Lab Requisition [facility] - Main Lab [address] [facility] [place] [address] Torrey Kwok MD [address] [place], [place] [id number] Type 2 diabetes mellitus with diabetic chronic [...] documented as of this encounter Care Teams Manager Engagement Relationship Specialty Start Date End Date Torrey Kwok MD [address] [place] [address] [address] [place] [address] PCP - General Geriatric Medicine 04/25/24 documented as of this encounter
--- OUTSIDE RECORDS SUMMARY | 2025-04-03 22:05 | XMS_ITS | Encounter Summary ---
Author Organization [facility] Address [address] [place] [address] Care Team Providers Care Cost Estimating Manager Name Role Phone Torrey Kwok MD Primary Care Provider [phone] Encounter Details Date Type Department Care Team (Late st Contact Info) Description 07/26/[address] 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 ([facility] V24, [facility] V28) documented in this encounter Results * (ABNORMAL) Basic metabolic panel (07/28/2024 5:15 AM EDT) Sodium 137 133 - 145 mmol/L LAB CHEMISTRY METHOD 07/28/2024 1:12 PM [facility] Potassium 3.7 3.5 - 5.5 mmol/L LAB CHEMISTRY METHOD 07/28/2024 1:12 PM [facility] Chloride 99 96 - 110 mmol/L LAB CHEMISTRY METHOD 07/28/2024 1:12 PM [facility] CO2 32 21 - 32 mmol/L LAB CHEMISTRY METHOD 07/28/2024 1:12 PM [facility] Anion Gap 6 3 - 11 LAB CHEMISTRY METHOD 07/28/2024 1:12 PM [facility] Glucose 292(H) 70 - 100 mg/dL LAB CHEMISTRY METHOD 07/28/2024 1:12 PM [facility] BUN 26(H) 5 - 25 mg/dL LAB CHEMISTRY METHOD 07/28/2024 1:12 PM [facility] Creatinine 1.21(H) 0.50 - 1.10 mg/dL LAB CHEMISTRY METHOD 07/28/2024 1:12 PM [facility] eGFR 43(L) >=60 mL/min/1. 73m2 LAB CHEMISTRY METHOD 07/28/2024 1:12 PM [facility] Comment:Calculation based on the Chronic Kidney Disease Epidemiology Collaboration (CKD-EPI) equation refit without adjustment for race. BUN/Creatinine Ratio 21.5 LAB CHEMISTRY METHOD 07/28/2024 1:[address] [facility] Calcium 9.0 8.5 - 10.5 mg/dL LAB CHEMISTRY METHOD 07/28/2024 1:[address] [facility] Blood Venous blood specimen / Unknown Venipuncture / Unknown 07/28/2024 5:15 AM EDT 07/28/2024 11:29 AM EDT us Torrey Kwok MD LAB BLOOD ORDERABLES Final Resul t [facility] [address] [place] [address], * (ABNORMAL) Complete blood count (07/28/2024 5:15 AM EDT) WBC 8.2 4.8 - 10.8 K/mcL LAB [facility]EM[facility]OLOGY [facility] RBC 3.30(L) 3.80 - 4.80 M/mcL LAB HEMETOLOGY METHOD 07/28/2024 12:[address] [facility] Hemoglobin 10.3(L) 11.5 - 16.0 g/dL LAB HEMETOLOGY METHOD 07/28/2024 12:47 PM [facility] Hematocrit 33.0(L) 35.0 - 47.0 % LAB HEMETOLOGY METHOD 07/28/2024 12:[address] [facility] MCV 101.5(H) 79.0 - 98.0 FL LAB HEMETOLOGY METHOD 07/28/2024 12:[address] [facility] MCH 31.7 27.0 - 32.0 pcg LAB HEMETOLOGY METHOD 07/28/2024 12:47 PM [facility] MCHC 31.2(L) 32.0 - 37.0 g/dL LAB HEMETOLOGY METHOD 07/28/2024 12:[address] [facility] RDW 17.0(H) 11.0 - 15.0 % LAB HEMETOLOGY METHOD 07/28/2024 12:[address] [facility] Platelets 308 130 - 400 K/mcL LAB HEMETOLOGY METHOD 07/28/2024 12:[address] [facility] MPV 10.7 7.0 - 11.0 FL LAB HEMETOLOGY METHOD 07/28/2024 12:[address] [facility] NRBC 0.0 <1.0 % LAB HEMETOLOGY METHOD 07/28/2024 12:[address] [facility] NRBC Absolute 0.00 <0.10 K/mcL LAB HEMETOLOGY METHOD 07/28/2024 12:[address] [facility] Blood Venous blood specimen / Unknown Venipuncture / Unknown 07/28/2024 5:15 AM EDT 07/28/2024 11:29 AM EDT Torrey Kwok MD LAB BLOOD ORDERABLES Final Resul t [facility] [address] [place] [address], documented in this encounter Visit Diagnoses Diagnosis [...] documented as of this encounter Care Teams Cost Estimating Manager Relationship Specialty Start Date End Date Torrey Kwok MD [address] [place] [address] [address] [place] [address] PCP - General Geriatric Medicine 04/25/24 documented as of this encounter
--- OUTSIDE RECORDS SUMMARY | 2025-04-03 22:05 | XMS_ITS | Encounter Summary ---
Author Organization [facility] Address [address] [place] [address] Care Team Providers Care Wood Lathe Operator Name Role Phone Torrey Kwok MD Primary Care Provider [phone] Encounter Details Date Type Department Care Team (Late st Contact Info) Description 02/20/2025 Lab Requisition [facility] - Main Lab 299 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 V24, CMS/HCC V28) Essential (primary) hypertension Heart failure, unspecified (CMS/HCC V24, CMS/HCC V28) BASIC METABOLIC PANEL Routine 02/23/2025 9:05 AM EST Type 2 diabetes mellitus with [...] encounter Results * (ABNORMAL) Complete blood count (02/23/2025 9:05 AM EST) [facility] WBC 6.4 4.8 - 10.8 K/mcL LAB HEMETOLOGY METHOD 02/23/2025 10:21 AM [facility] RBC 3.30(L) 3.80 - 4.80 M/mcL LAB HEMETOLOGY METHOD 02/23/2025 10:21 AM [facility] Hemoglobin 10.0(L) 11.5 - 16.0 g/dL LAB HEMETOLOGY METHOD 02/23/2025 10:21 AM [facility] Hematocrit 31.4(L) 35.0 - 47.0 % LAB HEMETOLOGY METHOD 02/23/2025 10:21 AM [facility] MCV 96.3 79.0 - 98.0 FL LAB HEMETOLOGY METHOD 02/23/2025 10:21 AM [facility] MCH 30.7 27.0 - 32.0 pcg LAB HEMETOLOGY METHOD 02/23/2025 10:21 AM [facility] MCHC 31.8(L) 32.0 - 37.0 g/dL LAB HEMETOLOGY METHOD 02/23/2025 10:21 AM [facility] RDW 17.3(H) 11.0 - 15.0 % LAB HEMETOLOGY METHOD 02/23/2025 10:21 AM [facility] Platelets 324 130 - 400 K/mcL LAB HEMETOLOGY METHOD 02/23/2025 10:21 AM [facility] MPV 10.2 7.0 - 11.0 FL LAB HEMETOLOGY METHOD 02/23/2025 10:21 AM EST [facility] NRBC 0.0 <1.0 % LAB HEMETOLOGY METHOD 02/23/2025 10:21 AM [facility] NRBC Absolute 0.00 <0.10 K/mcL LAB HEMETOLOGY METHOD 02/23/2025 10:21 AM [facility] Blood Venous blood specimen / Unknown Venipuncture / Unknown 02/23/2025 9:05 AM EST 02/23/2025 9:50 AM EST Torrey Kwok MD LAB BLOOD ORDERABLES Final Resul t [facility] [address] [place] [address], * (ABNORMAL) Basic metabolic panel (02/23/2025 9:05 AM EST) Sodium 136 133 - 145 mmol/L LAB CHEMISTRY METHOD 02/23/2025 11:39 AM [facility] Potassium 4.7 3.5 - 5.5 mmol/L LAB CHEMISTRY METHOD 02/23/2025 11:39 AM [facility] Comment:Hemolysis present Chloride 102 96 - 110 mmol/L LAB CHEMISTRY METHOD 02/23/2025 11:39 AM [facility] CO2 25 21 - 32 mmol/L LAB CHEMISTRY METHOD 02/23/2025 11:39 AM [facility] Anion Gap 9 3 - 11 LAB CHEMISTRY METHOD 02/23/2025 11:39 AM [facility] Glucose 203(H) 70 - 100 mg/dL LAB CHEMISTRY METHOD 02/23/2025 11:39 AM [facility] BUN 56(H) 5 - 25 mg/dL LAB CHEMISTRY METHOD 02/23/2025 11:39 AM EST [facility] Creatinine 1.54(H) 0.50 - 1.10 mg/dL LAB CHEMISTRY METHOD 02/23/2025 11:39 AM EST [facility] eGFR 32(L) >=60 mL/min/1. 73m2 LAB CHEMISTRY METHOD 02/23/2025 11:39 AM EST [facility] Comment:Calculation based on the Chronic Kidney Disease Epidemiology Collaboration (CKD-EPI) equation refit without adjustment for race. BUN/Creatinine Ratio 36.4 LAB CHEMISTRY METHOD 02/23/2025 11:39 AM EST [facility] Calcium 8.9 8.5 - 10.5 mg/dL LAB CHEMISTRY METHOD 02/23/2025 11:39 AM [facility] Blood Venous blood specimen / Unknown Venipuncture / Unknown 02/23/2025 9:05 AM EST 02/23/2025 9:50 AM EST us Torrey Kwok MD LAB BLOOD ORDERABLES Final Resul t [facility] [address] [place] [address], documented in this encounter Visit Diagnoses Diagnosis Type 2 diabetes mellitus with diabetic chronic kidney disease ([facility] V24, 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 V24, [facility] V28) Essential (primary) hypertension Unspecified essential hypertension Heart failure, unspecified ([facility] V24, [facility] V28) Heart failure, unspecified documented in this encounter Additional Health Concerns Infection Onset Date Last Indicated Resolved Time C. difficile Rule-Out 03/12/2025 03/11/20252024 11:34 AM EST documented as of this encounter Care Teams Wood Lathe Operator Relationship Specialty Start Date End Date Torrey Kwok MD [address] [place] [address] [address] [place] [address] PCP - General Geriatric Medicine 04/25/24 documented as of this encounter
--- OUTSIDE RECORDS SUMMARY | 2025-04-03 22:05 | XMS_ITS | Encounter Summary ---
Author Organization [facility] Address [address] [place] [address] Care Team Providers Care Crts Name Role Phone Torrey Kwok MD Primary Care Provider [phone] Encounter Details Date Type Department Care Team (Late st Contact Info) Description 12/26/[address] 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 ([facility] V24, [facility] V28) documented in this encounter Results * (ABNORMAL) Complete blood count (12/29/2024 9:16 AM EDT) [facility] WBC 6.9 4.8 - 10.8 K/mcL LAB HEMETOLOGY METHOD 12/29/2024 11:02 AM [facility] RBC 3.50(L) 3.80 - 4.80 M/mcL LAB HEMETOLOGY METHOD 12/29/2024 11:02 AM [facility] Hemoglobin 11.2(L) 11.5 - 16.0 g/dL LAB HEMETOLOGY METHOD 12/29/2024 11:02 AM [facility] Hematocrit 34.3(L) 35.0 - 47.0 % LAB HEMETOLOGY METHOD 12/29/2024 11:02 AM [facility] MCV 96.9 79.0 - 98.0 FL LAB HEMETOLOGY METHOD 12/29/2024 11:02 AM [facility] MCH 31.6 27.0 - 32.0 pcg LAB HEMETOLOGY METHOD 12/29/2024 11:02 AM [facility] MCHC 32.7 32.0 - 37.0 g/dL LAB HEMETOLOGY METHOD 12/29/2024 11:02 AM [facility] RDW 15.4(H) 11.0 - 15.0 % LAB HEMETOLOGY METHOD 12/29/2024 11:02 AM [facility] Platelets 236 130 - 400 K/mcL LAB HEMETOLOGY METHOD 12/29/2024 11:02 AM EDT [facility] MPV 10.5 7.0 - 11.0 FL LAB HEMETOLOGY METHOD 12/29/2024 11:02 AM EDT [facility] NRBC 0.0 <1.0 % LAB HEMETOLOGY METHOD 12/29/2024 11:02 AM [facility] NRBC Absolute 0.00 <0.10 K/mcL LAB HEMETOLOGY METHOD 12/29/2024 11:02 AM T [facility] Blood Venous blood specimen / Unknown Venipuncture / Unknown 12/29/2024 9:16 AM EDT 12/29/2024 10:37 AM EDT us Torrey Kwok MD LAB BLOOD ORDERABLES Final Resul t [facility] [address] [place] [address], * (ABNORMAL) Basic metabolic panel (12/29/2024 9:11 AM EDT) Sodium 135 133 - 145 mmol/L LAB CHEMISTRY METHOD 12/29/2024 11:38 AM [facility] Potassium 4.0 3.5 - 5.5 mmol/L LAB CHEMISTRY METHOD 12/29/2024 11:38 AM [facility] Chloride 98 96 - 110 mmol/L LAB CHEMISTRY METHOD 12/29/2024 11:38 AM [facility] CO2 30 21 - 32 mmol/L LAB CHEMISTRY METHOD 12/29/2024 11:38 AM [facility] Anion Gap 7 3 - 11 LAB CHEMISTRY METHOD 12/29/2024 11:38 AM [facility] Glucose 283(H) 70 - 100 mg/dL LAB CHEMISTRY METHOD 12/29/2024 11:38 AM [facility] BUN 38(H) 5 - 25 mg/dL LAB CHEMISTRY METHOD 12/29/2024 11:38 AM EDT [facility] Creatinine 1.33(H) 0.50 - 1.10 mg/dL LAB CHEMISTRY METHOD 12/29/2024 11:38 AM EDT [facility] eGFR 39(L) >=60 mL/min/1. 73m2 LAB CHEMISTRY METHOD 12/29/2024 11:38 AM EDT [facility] Comment:Calculation based on the Chronic Kidney Disease Epidemiology Collaboration (CKD-EPI) equation refit without adjustment for race. BUN/Creatinine Ratio 28.6 LAB CHEMISTRY METHOD 12/29/2024 11:38 AM EDT [facility] Calcium 8.9 8.5 - 10.5 mg/dL LAB CHEMISTRY METHOD 12/29/2024 11:38 AM T [facility] Blood Venous blood specimen / Unknown Venipuncture / Unknown 12/29/2024 9:11 AM EDT 12/29/2024 10:42 AM EDT us Torrey Kwok MD LAB BLOOD ORDERABLES Final Resul t [facility] [address] [place] [address], documented in this encounter Visit Diagnoses Diagnosis Essential (primary) hypertension Unspecified essential hypertension Heart failure, unspecified ([facility] V24, [facility] V28) Heart failure, unspecified Type 2 diabetes mellitus with diabetic chronic kidney disease ([facility] V24, [facility] V28) 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 difficile Rule-Out 03/12/2025 03/11/20252024 11:34 AM EST documented as of this encounter Care Teams Crts Relationship Specialty Start Date End Date Torrey Kwok MD [address] [place] [address] [address] [place] [address] PCP - General Geriatric Medicine 04/25/24 documented as of this encounter
--- OUTSIDE RECORDS SUMMARY | 2025-04-03 22:05 | XMS_ITS | Encounter Summary ---
Author Organization [facility] Address [address] [place] [address] Care Team Providers Care Grocery Sacker Name Role Phone Torrey Kwok MD Primary Care Provider [phone] Encounter Details Date Type Department Care Team (Late st Contact Info) Description 02/13/2025 Lab Requisition [facility] - Main Lab [address] [facility] [place] [address] Torrey Kwok MD [address] [place], [place] [phone] Type 2 diabetes mellitus with diabetic chronic [...] documented as of this encounter Care Teams Grocery Sacker Relationship Specialty Start Date End Date Torrey Kwok MD [address] [place], [place] [phone] PCP - General Geriatric Medicine 04/25/24 documented as of this encounter
--- OUTSIDE RECORDS SUMMARY | 2025-04-03 22:05 | XMS_ITS | Encounter Summary ---
Author Organization [facility] Address [address] [place] [address] Care Team Providers Care [employer] Social Worker Name Role Phone Torrey Kwok MD Primary Care Provider [phone] Encounter Details Date Type Department Care Team (Late st Contact Info) Description 05/01/2024 Lab Requisition [facility] - Main Lab 299 [facility] [place] [address] Torrey Kwok MD [address] [place], [place] [phone] Type 2 diabetes mellitus without complications (CMS/HCC [...] Resul t [facility] [address] [place] [address], documented in this encounter Visit Diagnoses Diagnosis Type 2 diabetes mellitus without complications (CMS/HCC V24, CMS/HCC V28) documented in this encounter Additional Health Concerns Infection Onset Date Last Indicated Resolved Time Respiratory Rule-Out 07/12/2024 07/11/2024 025 11:25 AM EDT C. difficile Rule-Out 03/12/2025 03/11/20252024 11:34 AM EST documented as of this encounter Care Teams [employer] Social Worker Relationship Specialty Start Date End Date Torrey Kwok MD [address] [place] [address] [address] [place] [address] PCP - General Geriatric Medicine 04/25/24 documented as of this encounter
--- OUTSIDE RECORDS SUMMARY | 2025-04-03 22:05 | XMS_ITS | Encounter Summary ---
Author Organization [facility] Address [address] [place] [address] Phone Care Team Providers Care Childcare Aide Name Role Phone Monique White MD Primary Care Provider [phone] Encounter Details Date Type Department Care Team (Late st Contact Info) Description 06/07/2021 Telephone [facility] [address] [place] [address] Sohail Penaloza MD Social History Tobacco Use Types Packs/Day Years Used Date Smoking Tobacco: Former Cigarettes 1 Q uit: 04/09/1964 Comments:Smoking History Inf o:Every [...] with you. Please call her back at [phone] Thank you documented in this encounter Plan of Treatment Not on file documented as of this encounter Visit Diagnoses Not on filedocumented in this encounter Care Teams Childcare Aide Relationship Specialty Start Date End Date Monique White MD NPI: [id number] [place] [address] [place] PCP - General Internal Medicine 03/11/21 documented as of this encounter
--- OUTSIDE RECORDS SUMMARY | 2025-04-03 22:05 | XMS_ITS | Encounter Summary ---
Author Organization [facility] Address [address] [place] [address] Care Team Providers Care Cooker Chip Name Role Phone Torrey Kwok MD Primary Care Provider [phone] Encounter Details Date Type Department Care Team (Late st Contact Info) Description 01/30/2025 Lab Requisition [facility] - Main Lab 299 [facility] [email or web address] [place] [address] Torrey Kwok MD [address] [place], [place] [phone] Fever, unspecified Social History Tobacco Use Types [...] Escherichia coli(A) ANDRE 02/01/2025 8:03 AM EDT [facility] Urine Urine specimen obtained by clean catch procedure / Unknown Non-blood Collection / Unknown 01/30/2025 7:00 AM EDT 01/30/2025 9:54 AM EDT Narrative [facility] - 02/01/2025 8:03 AM EDT Additional [...] MICROBIOLOGY - GENERAL ORDER GENET Final Result [facility] [address] [place] [address], [place] [phone] * (ABNORMAL) Urinalysis with reflex microscopic and culture (01/30/2025 7:00 AM EDT) Specific [place] Urine 1.019 1.003 - 1.030 LAB URINALYSIS - AUTOMATED METHOD 01/30/2025 9:54 AM EDT [facility] pH, Urine 7.5 5.0 - 8.0 pH LAB URINALYSIS - AUTOMATED METHOD 01/30/2025 9:54 AM [facility] Leukocytes, Urine Moderate(A) Negative LAB URINALYSIS - AUTOMATED METHOD 01/30/2025 9:54 AM [facility] Nitrite, Urine Positive(A) Negative LAB URINALYSIS - AUTOMATED METHOD 01/30/2025 9:54 AM [facility] Protein, Urine 30(A) <=Trace mg/dL LAB URINALYSIS - AUTOMATED METHOD 01/30/2025 9:54 AM [facility] Glucose, Urine >=1000(A) Negative mg/dL LAB URINALYSIS - AUTOMATED METHOD 01/30/2025 9:54 AM [facility] Ketones, Urine Trace(A) Negative mg/dL LAB URINALYSIS - AUTOMATED METHOD 01/30/2025 9:54 AM [facility] Urobilinogen , Urine 0.2 0.2 - 1.0 mg/dL LAB URINALYSIS - AUTOMATED METHOD 01/30/2025 9:54 AM [facility] Bilirubin, Urine Negative Negative LAB URINALYSIS - AUTOMATED METHOD 01/30/2025 9:54 AM [facility] Blood, Urine Moderate(A) Negative LAB URINALYSIS - AUTOMATED METHOD 01/30/2025 9:54 AM [facility] RBC, Urine 58.4(H) 0 - 4 /HPF LAB URINALYSIS - AUTOMATED METHOD 01/30/2025 9:54 AM [facility] WBC, Urine 547.4(H) 0 - 4 /HPF LAB URINALYSIS - AUTOMATED METHOD 01/30/2025 9:54 AM [facility] Squamous Epithelial, Urine 8 0 - 60 /LPF LAB URINALYSIS - AUTOMATED METHOD 01/30/2025 9:54 AM [facility] Bacteria, Urine Many(A) Negative /HPF LAB URINALYSIS - AUTOMATED METHOD 01/30/2025 9:54 AM EDT [facility] Hyaline Casts, Urine 0.4 0 - 3 /LPF LAB URINALYSIS - AUTOMATED METHOD 01/30/2025 9:54 AM EDT [facility] Urine Urine specimen obtained by clean catch procedure / Unknown Non-blood Collection / Unknown 01/30/2025 7:00 AM EDT 01/30/2025 9:09 AM EDT Torrey Kwok MD LAB URINE ORDERABLES Final Resul t Performing Organization Address City/[facility]/ZIP Co de Phone Number [facility] [address] [place] [address], [place] [phone] * Frost urine culture tube (01/30/2025 7:00 AM EDT) Extra Tube Hold for add-ons. 01/30/2025 11:01 AM EDT [facility] Comment:Auto resulted. Urine Urine specimen obtained by clean catch procedure / Unknown Non-blood Collection / Unknown 01/30/2025 7:00 AM EDT 01/30/2025 9:09 AM EDT us Torrey Kwok MD LAB URINE ORDERABLES Final Resul t Performing Organization Address City/[facility]/ZIP Co de Phone Number [facility] [address] [place] [address], [place] [phone] documented in this encounter Visit Diagnoses Diagnosis Fever, unspecified documented in this encounter Additional Health Concerns Infection Onset Date Last Indicated Resolved Time C. difficile Rule-Out 03/12/2025 03/11/20252024 11:34 AM EST documented as of this encounter Care Teams Cooker Chip Relationship Specialty Start Date End Date Torrey Kwok MD [address] [place] [address] [address] [place] [address] PCP - General Geriatric Medicine 04/25/24 documented as of this encounter
--- OUTSIDE RECORDS SUMMARY | 2025-04-03 22:05 | XMS_ITS | Encounter Summary ---
Author Organization [facility] Address [id number] [place] [id number] Care Team Providers Care Workday Consultant Name Role Phone Torrey Kwok MD Primary Care Provider [phone] Encounter Details Date Type Department Care Team (Late st Contact Info) Description 12/19/2024 Lab Requisition [facility] - Main Lab [address] [facility] [place] [address] Torrey Kwok MD [address] [place], [place] [id number] Type 2 diabetes mellitus with diabetic chronic [...] with diabetic chronic kidney disease ([facility] V24, [facility] V28) Heart failure, unspecified ([facility] V24, [facility] V28) 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 ([facility] V24, [facility] V28) Essential (primary) hypertension BASIC METABOLIC PANEL Routine 12/22/2024 6:38 AM EDT Type 2 diabetes mellitus with diabetic chronic kidney disease ([facility] V24, [facility] V28) Heart failure, unspecified ([facility] V24, [facility] V28) 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 ([facility] V24, [facility] V28) Essential (primary) hypertension documented in this [...] Resul t [facility] [address] [place] [address], * (ABNORMAL) Complete blood count (12/22/2024 6:38 AM EDT) Pathologist [facility] WBC 6.0 4.8 - 10.8 K/mcL LAB HEMETOLOGY METHOD 12/22/2024 11:36 AM EDT [facility] RBC 3.50(L) 3.80 - 4.80 M/mcL LAB HEMETOLOGY METHOD 12/22/2024 11:36 AM [facility] Hemoglobin 10.9(L) 11.5 - 16.0 g/dL LAB HEMETOLOGY METHOD 12/22/2024 11:36 AM [facility] Hematocrit 34.2(L) 35.0 - 47.0 % LAB HEMETOLOGY METHOD 12/22/2024 11:36 AM [facility] MCV 98.0 79.0 - 98.0 FL LAB HEMETOLOGY METHOD 12/22/2024 11:36 AM [facility] MCH 31.2 27.0 - 32.0 pcg LAB HEMETOLOGY METHOD 12/22/2024 11:36 AM [facility] MCHC 31.9(L) 32.0 - 37.0 g/dL LAB HEMETOLOGY METHOD 12/22/2024 11:36 AM [facility] RDW 15.8(H) 11.0 - 15.0 % LAB HEMETOLOGY METHOD 12/22/2024 11:36 AM [facility] Platelets 259 130 - 400 K/mcL LAB HEMETOLOGY METHOD 12/22/2024 11:36 AM [facility] MPV 10.9 7.0 - 11.0 FL LAB HEMETOLOGY METHOD 12/22/2024 11:36 AM [facility] NRBC 0.0 <1.0 % LAB HEMETOLOGY METHOD 12/22/2024 11:36 AM [facility] NRBC Absolute 0.00 <0.10 K/mcL LAB HEMETOLOGY METHOD 12/22/2024 11:36 AM [facility] Blood Venous blood specimen / Unknown Venipuncture / Unknown 12/22/2024 6:38 AM EDT 12/22/2024 11:02 AM EDT us Torrey Kwok MD LAB BLOOD ORDERABLES Final Resul t [facility] [address] [place] [address], * (ABNORMAL) Basic metabolic panel (12/22/2024 6:38 AM EDT) Sodium 137 133 - 145 mmol/L LAB CHEMISTRY METHOD 12/22/2024 2:47 PM [facility] Potassium 4.0 3.5 - 5.5 mmol/L LAB CHEMISTRY METHOD 12/22/2024 2:47 PM [facility] Chloride 104 96 - 110 mmol/L LAB CHEMISTRY METHOD 12/22/2024 2:47 PM [facility] CO2 22 21 - 32 mmol/L LAB CHEMISTRY METHOD 12/22/2024 2:47 PM [facility] Anion Gap 11 3 - 11 LAB CHEMISTRY METHOD 12/22/2024 2:47 PM [facility] Glucose 187(H) 70 - 100 mg/dL LAB CHEMISTRY METHOD 12/22/2024 2:47 PM [facility] BUN 38(H) 5 - 25 mg/dL LAB CHEMISTRY METHOD 12/22/2024 2:47 PM [facility] Creatinine 1.17(H) 0.50 - 1.10 mg/dL LAB CHEMISTRY METHOD 12/22/2024 2:47 PM [facility] eGFR 45(L) >=60 mL/min/1. 73m2 LAB CHEMISTRY METHOD 12/22/2024 2:47 PM [facility] Comment:Calculation based on the Chronic Kidney Disease Epidemiology Collaboration (CKD-EPI) equation refit without adjustment for race. BUN/Creatinine Ratio 32.5 LAB CHEMISTRY METHOD 12/22/2024 2:47 PM EDT [facility] Calcium 8.7 8.5 - 10.5 mg/dL LAB CHEMISTRY METHOD 12/22/2024 2:47 PM EDT [facility]) [facility] Blood Venous blood specimen / Unknown Venipuncture / Unknown 12/22/2024 6:38 AM EDT 12/22/2024 11:03 AM EDT Torrey Kwok MD LAB BLOOD ORDERABLES Final Resul t [facility] ([facility] [address] [place] [address], documented in this encounter Visit Diagnoses Diagnosis Type 2 diabetes mellitus with diabetic chronic kidney disease ([facility] V24, [facility] V28) Heart failure, unspecified ([facility] V24, [facility] V28) Heart failure, unspecified 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 difficile Rule-Out 03/12/2025 03/11/20252024 11:34 AM EST documented as of this encounter Care Teams Workday Consultant Relationship Specialty Start Date End Date Torrey Kwok MD [address] [place] [address] [address] [place] [address] PCP - General Geriatric Medicine 04/25/24 documented as of this encounter
--- OUTSIDE RECORDS SUMMARY | 2025-04-03 22:05 | XMS_ITS | Encounter Summary ---
Author Organization [facility] Address [address] [place] [phone] Care Team Providers Care Flatbed Driver Name Role Phone Torrey Kwok MD Primary Care Provider [phone] Encounter Details Date Type Department Care Team (Late st Contact Info) Description 09/17/2024 Lab Requisition [facility] - Main Lab [address] [facility] [address] Torrey Kwok MD [address] [place], [place] [phone] Type 2 diabetes mellitus without complications ([facility] V24, [facility] V28) Social History Tobacco Use Types Packs/Day [...] 2 diabetes mellitus without complications (CMS/HCC V24, [facility] V28) documented in this encounter Results * (ABNORMAL) Hemoglobin A1c (09/17/2024 5:53 AM EDT) Hemoglobin A1C 9.8(H) <6.5 % LAB CHEMISTRY METHOD 09/17/2024 12:18 PM [facility] Mean Bld Glu Estim. 235 mg/dL LAB CHEMISTRY METHOD 09/17/2024 12:18 PM [facility] Blood Venous blood specimen / Unknown Venipuncture / Unknown 09/17/2024 5:53 AM EDT 09/17/2024 8:55 AM EDT Torrey Kwok MD LAB BLOOD ORDERABLES Final Resul t [facility] ([facility]) [facility] [address] [place] [address], documented in this encounter Visit Diagnoses Diagnosis Type 2 diabetes mellitus without complications (CMS/HCC V24, CMS/HCC V28) documented in this encounter Additional Health Concerns Infection Onset Date Last Indicated Resolved Time C. difficile Rule-Out 03/12/2025 03/11/20252024 11:34 AM EST documented as of this encounter Care Teams Flatbed Driver Relationship Specialty Start Date End Date Torrey Kwok MD [address] [place] [address] [address] [place] [address] PCP - General Geriatric Medicine 04/25/24 documented as of this encounter
--- OUTSIDE RECORDS SUMMARY | 2025-04-03 22:05 | XMS_ITS | Encounter Summary ---
Author Organization [facility] Address [address] [place] [address] Care Team Providers Care Steam Hoist Operator Name Role Phone Torery Kwok MD Primary Care Provider [phone] Encounter Details Date Type Department Care Team (Late st Contact Info) Description 03/04/2025 Lab Requisition [facility] - Main Lab [address] [facility] [address] Torrey Kwok MD [address] [place], [place] [phone] Urinary tract infection, site not specified Social History Tobacco Use Types Packs/Day Years [...] URINALYSIS WITH REFLEX MICROSCOPIC AND CULTURE Routine 03/03/2025 12:00 AM EST Urinary tract infection, site not specified FROST URINE CULTURE TUBE Routine 03/03/2025 12:00 AM EST Urinary tract infection, site not specified URINALYSIS WITH REFLEX MICROSCOPIC AND CULTURE Routine 03/03/2025 12:00 AM EST Urinary tract infection, site not specified CULTURE URINE Routine 03/03/2025 12:00 AM EST Urinary tract infection, site not specified documented in this encounter Results * Culture urine (03/03/2025 12:00 AM EST) Culture, Urine 50,000-99,000 CFU/mL Mixed urogenital karuna, no uropathogens present. Suggest repeat specimen if clinically indicated. 03/05/2025 10:54 AM [facility] Urine Urine specimen obtained by clean catch procedure / Unknown Non-blood Collection / Unknown 03/03/2025 03/04/2025 11:10 AM EST Torrey Kwok MD LAB MICROBIOLOGY - GENERAL ORDER GENET Final Result [facility] [address] [place] [address], * (ABNORMAL) Urinalysis with reflex microscopic and culture (03/03/2025 12:00 AM EST) [facility] Specific [place] Urine 1.018 1.003 - 1.030 LAB URINALYSIS - AUTOMATED METHOD 03/04/2025 11:10 AM [facility] pH, Urine 6.0 5.0 - 8.0 pH LAB URINALYSIS - AUTOMATED METHOD 03/04/2025 11:10 AM [facility] Leukocytes, Urine Moderate(A) Negative LAB URINALYSIS - AUTOMATED METHOD 03/04/2025 11:10 AM [facility] Nitrite, Urine Negative Negative LAB URINALYSIS - AUTOMATED METHOD 03/04/2025 11:10 AM [facility] Protein, Urine Trace <=Trace mg/dL LAB URINALYSIS - AUTOMATED METHOD 03/04/2025 11:10 AM [facility] Glucose, Urine >=1000(A) Negative mg/dL LAB URINALYSIS - AUTOMATED METHOD 03/04/2025 11:10 AM [facility] Ketones, Urine Negative Negative mg/dL LAB URINALYSIS - AUTOMATED METHOD 03/04/2025 11:10 AM [facility] Urobilinogen , Urine 0.2 0.2 - 1.0 mg/dL LAB URINALYSIS - AUTOMATED METHOD 03/04/2025 11:10 AM [facility] Bilirubin, Urine Negative Negative LAB URINALYSIS - AUTOMATED METHOD 03/04/2025 11:10 AM [facility] Blood, Urine Trace(A) Negative LAB URINALYSIS - AUTOMATED METHOD 03/04/2025 11:10 AM [facility] RBC, Urine 5(H) 0 - 4 /HPF 03/04/2025 11:10 AM [facility] WBC, Urine >100(H) 0 - 4 /HPF 03/04/2025 11:10 AM [facility] Squamous Epithelial, Urine 30 0 - 60 /LPF 03/04/2025 11:10 AM [facility] Bacteria, Urine Few(A) Negative /HPF 03/04/2025 11:10 AM [facility] Yeast, Urine Present(A) None /HPF 03/04/2025 11:10 AM [facility] Urine Urine specimen obtained by clean catch procedure / Unknown Non-blood Collection / Unknown 03/03/2025 03/04/2025 9:02 AM EST Torrey Kwok MD LAB URINE ORDERABLES Final Resul t [facility] [address] [place] [address], * Frost urine culture tube (03/03/2025 12:00 AM EST) Extra Tube Hold for add-ons. 03/04/2025 11:02 AM [facility] Comment:Auto resulted. Urine Urine specimen obtained by clean catch procedure / Unknown Non-blood Collection / Unknown 03/03/2025 03/04/2025 9:02 AM EST Torrey Kwok MD LAB URINE ORDERABLES Final Resul t [facility] [address] [place] [address], documented in this encounter Visit Diagnoses Diagnosis Urinary tract infection, site not specified documented in this encounter Additional Health Concerns Infection Onset Date Last Indicated Resolved Time C. difficile Rule-Out 03/12/2025 03/11/20252024 11:34 AM EST documented as of this encounter Care Teams Steam Hoist Operator Relationship Specialty Start Date End Date Torrey Kwok MD [address] [facility] [address] [place] [address] PCP - General Geriatric Medicine 04/25/24 documented as of this encounter
--- OUTSIDE RECORDS SUMMARY | 2025-04-03 22:05 | XMS_ITS | Clinical Summary ---
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 ([facility] V24, [facility]/HCC V28); Essential (primary) hypertension; Heart failure, unspecified ([facility]/HCC V24, CMS/HCC V28) 03/21/2025 Lab Requisition [facility] [address] [place] [phone] Torrey Kwok MD 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, CMS/HCC V28); 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 V24, CMS/HCC V28); Essential (primary) hypertension; Heart failure, unspecified (CMS/HCC V24, CMS/HCC V28) 03/19/2025 Lab Requisition [facility] [address] [place] [address] Torrey Kwok MD Type 2 diabetes mellitus without complications ([facility] V24, [facility] V28); Chronic diastolic (congestive) heart failure ([facility] V24, [facility] V28) 03/13/2025 Lab Requisition [facility] [address] [place] [phone] Torrey Kwok MD Type 2 diabetes mellitus with diabetic chronic kidney disease ([facility] V24, [facility] V28); 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 ([facility] V24, [facility] V28); Essential (primary) hypertension; Heart failure, unspecified ([facility] V24, [facility] V28) 03/13/2025 Lab Requisition [facility] [address] [place] [phone] Torrey Kwok MD Restlessness and agitation; Urinary tract infection, site not specified 03/12/2025 Lab Requisition [facility] [address] [place] [phone] Torrey Kwok MD Diarrhea, unspecified 03/06/2025 Lab Requisition [facility] [address] [place] [phone] Torrey Kwok MD Type 2 diabetes mellitus with diabetic chronic kidney disease ([facility] V24, [facility] V28); 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 ([facility] V24, [facility] V28); Essential (primary) hypertension; Heart failure, unspecified ([facility] V24, [facility] V28) 03/04/2025 Lab Requisition [facility] [address] [place] [phone] Torrey Kwok MD Urinary tract infection, site not specified 02/27/2025 Lab Requisition [facility] [address] [place] [phone] Torrey Kwok MD 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, [facility] V28); 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 ([facility] V24, [facility] V28); Essential (primary) hypertension; Heart failure, unspecified ([facility]/HCC V24, [facility]/HCC V28) 02/20/2025 Lab Requisition [facility] [address] [place] [phone] Torrey Kwok MD Type 2 diabetes mellitus with diabetic chronic kidney disease ([facility]/HCC V24, [facility] V28); 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 ([facility] V24, [facility] V28); Essential (primary) hypertension; Heart failure, unspecified ([facility] V24, [facility] V28) 02/13/2025 Lab Requisition [facility] [address] [place] [phone] Torrey Kwok MD Type 2 diabetes mellitus with diabetic chronic kidney disease ([facility] V24, [facility] V28); Essential (primary) hypertension; Heart failure, unspecified ([facility] V24, [facility] V28) 02/06/2025 Lab Requisition [facility] [address] [place] [phone] Torrey Kwok MD Type 2 diabetes mellitus with diabetic chronic kidney disease ([facility] V24, [facility] V28); Essential (primary) hypertension; Heart failure, unspecified ([facility] V24, [facility] V28); 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 ([facility] V24, [facility] V28); Hypothyroidism, unspecified 02/02/2025 Lab Requisition [facility] [address] [place] [phone] Torrey Kwok MD Type 2 diabetes mellitus with diabetic chronic kidney disease ([facility] V24, [facility] V28); Essential (primary) hypertension; Heart failure, unspecified ([facility] V24, [facility] V28); 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 ([facility] V24, [facility] V28) 01/30/2025 Lab Requisition [facility] [address] [place] [phone] Torrey Kwok MD Type 2 diabetes mellitus with diabetic chronic kidney disease ([facility] V24, [facility] V28); Essential (primary) hypertension; Heart failure, unspecified ([facility] V24, [facility] V28); 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 ([facility] V24, [facility] V28) 01/30/2025 Lab Requisition [facility] [address] [place] [phone] 01/30/2025 Lab Requisition [facility] [address] [place] [phone] Torrey Kwok MD Fever, unspecified 01/29/2025 Lab Requisition [facility] [address] [place] [phone] Torrey Kwok MD Abnormal results of thyroid function studies 01/24/2025 Lab Requisition [facility] [address] [place] [phone] Torrey Kwok MD Type 2 diabetes mellitus with diabetic chronic kidney disease ([facility] V24, [facility] V28); Essential (primary) hypertension; Heart failure, unspecified ([facility] V24, [facility] V28); 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 ([facility] V24, [facility] V28) 01/16/2025 Lab Requisition [facility] [address] [place] [phone] Torrey Kwok MD Type 2 diabetes mellitus with diabetic chronic kidney disease ([facility] V24, [facility] V28); Essential (primary) hypertension; Heart failure, unspecified ([facility] V24, [facility] V28); Type 2 diabetes mellitus with unspecified diabetic retinopathy without macular edema ([facility] V24, [facility] V28) 01/10/2025 Lab Requisition [facility] [address] [facility] [place] [phone] Torrey Kwok MD Type 2 diabetes mellitus with diabetic chronic kidney disease ([facility] V24, [facility] V28); Essential (primary) hypertension; Heart failure, unspecified ([facility] V24, [facility] V28); 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 ([facility] V24, [facility] V28) 01/03/2025 Lab Requisition [facility] [address] [place] [phone] Torrey Kwok MD Type 2 diabetes mellitus with diabetic chronic kidney disease ([facility] V24, [facility] V28); Essential (primary) hypertension; Heart failure, unspecified ([facility] V24, [facility] V28); 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 ([facility] V24, [facility] V28) 01/02/2025 Lab Requisition [facility] [address] [place] [phone] Torrey Kwok MD Type 2 diabetes mellitus without complications ([facility] V24[facility] V28) from Last 3 Months Social History [...] Influencers of Health Screening 04/25/2024 COVID-19 Vaccine ( season) 2024 02/15/2021 Influenza Vaccine (#1) 2024 , 01/28/2019, 01/07/2018, Additional history exists Diabetes: Blood Sugar Control Test (HGBA1C) 06/21/2025 12/22/2024, 12/19/2024, 09/17/2024, Additional history exists Hypertension/CHF/CAD Annual BMP Blood Test 03/30/2026 03/30/2025, 03/20/2025, 03/16/2025, Additional history exists HIB Vaccines Aged Out [...] URINALYSIS WITH REFLEX MICROSCOPIC AND CULTURE Routine 04/03/2025 4:00 AM EST Urinary tract infection, site not specified FROST URINE CULTURE TUBE Routine 04/03/20 4:00 AM EST Urinary tract infection, site not specified URINALYSIS WITH REFLEX MICROSCOPIC AND CULTURE Routine 04/03/2025 4:00 AM EST Urinary tract infection, site not specified COMPLETE BLOOD COUNT Routine 03/30/2025 5:44 AM EST 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, CMS/HCC V28) 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 V24, CMS/HCC V28) Essential (primary) hypertension Heart failure, unspecified (CMS/HCC V24, CMS/HCC V28) BASIC METABOLIC PANEL Routine 03/30/2025 5:44 AM EST 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, CMS/HCC V28) 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 V24, CMS/HCC V28) Essential (primary) hypertension Heart failure, unspecified (CMS/HCC V24, CMS/HCC V28) BASIC METABOLIC PANEL Routine 03/20/2025 7:30 AM EST Type 2 diabetes mellitus without complications (CMS/HCC V24, CMS/HCC V28) Chronic diastolic (congestive) heart failure (CMS/HCC V24, CMS/HCC V28) COMPLETE BLOOD COUNT Routine 03/16/2025 5:05 AM EST 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, CMS/HCC V28) 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 V24, CMS/HCC V28) Essential (primary) hypertension Heart failure, unspecified (CMS/HCC V24, CMS/HCC V28) BASIC METABOLIC PANEL Routine 03/16/2025 5:05 AM EST 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, CMS/HCC V28) 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 V24, CMS/HCC V28) Essential (primary) hypertension Heart failure, unspecified (CMS/HCC V24, CMS/HCC V28) URINALYSIS WITH REFLEX MICROSCOPIC Routine 03/12/2025 9:00 PM EST Restlessness and agitation Urinary tract infection, site not specified URINALYSIS WITH REFLEX MICROSCOPIC Routine 03/12/2025 9:00 PM EST Restlessness and agitation Urinary tract infection, site not specified CULTURE URINE Routine 03/12/2025 9:00 PM EST Restlessness and agitation Urinary tract infection, site not specified CLOSTRIDIUM DIFFICILE PCR Routine 03/11/2025 10:35 AM EST Diarrhea, unspecified CLOSTRIDIUM DIFFICILE TOXIN Routine 03/11/2025 10:35 AM EST Diarrhea, unspecified COMPLETE BLOOD COUNT Routine 03/09/2025 5:08 AM EST 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, CMS/HCC V28) 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 V24, CMS/HCC V28) Essential (primary) hypertension Heart failure, unspecified (CMS/HCC V24, CMS/HCC V28) BASIC METABOLIC PANEL Routine 03/09/2025 5:08 AM EST 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, CMS/HCC V28) 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 V24, CMS/HCC V28) Essential (primary) hypertension Heart failure, unspecified (CMS/HCC V24, CMS/HCC V28) URINALYSIS WITH REFLEX MICROSCOPIC AND CULTURE Routine 03/03/2025 12:00 AM EST Urinary tract infection, site not specified FROST URINE CULTURE TUBE Routine 03/03/20 12:00 AM EST Urinary tract infection, site not specified URINALYSIS WITH REFLEX MICROSCOPIC AND CULTURE Routine 03/03/2025 12:00 AM EST Urinary tract infection, site not specified CULTURE URINE Routine 03/03/2025 12:00 AM EST Urinary tract infection, site not specified COMPLETE BLOOD COUNT Routine 03/02/2025 9:06 AM EST 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, CMS/HCC V28) 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 V24, CMS/HCC V28) Essential (primary) hypertension Heart failure, unspecified (CMS/HCC V24, CMS/HCC V28) BASIC METABOLIC PANEL Routine 03/02/2025 9:06 AM EST 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, CMS/HCC V28) 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 V24, CMS/HCC V28) Essential (primary) hypertension Heart failure, unspecified (CMS/HCC V24, CMS/HCC V28) COMPLETE BLOOD COUNT Routine 02/23/2025 9:05 AM [...] Heart failure, unspecified (CMS/HCC V24, CMS/HCC V28) TRIIODOTHYRONINE FREE Routine 02/09/2025 5:08 AM EST 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, CMS/HCC V28) Essential (primary) hypertension Heart failure, unspecified (CMS/HCC V24, CMS/HCC V28) 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 V24, CMS/HCC V28) Hypothyroidism, unspecified FREE THYROXINE WITH REFLEX TO FREE TRIIODOTHYRONINE Routine 02/09/2025 5:08 AM EST 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, CMS/HCC V28) Essential (primary) hypertension Heart failure, unspecified (CMS/HCC V24, CMS/HCC V28) 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 V24, CMS/HCC V28) Hypothyroidism, unspecified THYROID STIMULATING HORMONE WITH [...] without macular edema (CMS/HCC V24, CMS/HCC V28) HEMOGLOBIN A1C Routine 12/22/2024 6:38 AM EDT 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, CMS/HCC V28) Heart failure, unspecified (CMS/HCC V24, CMS/HCC V28) 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 Specific [place] Urine 1.014 1.003 - 1.030 LAB URINALYSIS - AUTOMATED METHOD 04/03/2025 9:41 AM EST [facility] pH, Urine 6.5 5.0 - 8.0 pH LAB URINALYSIS - AUTOMATED METHOD 04/03/2025 9:41 AM [facility] Leukocytes, Urine Moderate(A) Negative LAB URINALYSIS - AUTOMATED METHOD 04/03/2025 9:41 AM [facility] Nitrite, Urine Negative Negative LAB URINALYSIS - AUTOMATED METHOD 04/03/2025 9:41 AM [facility] Protein, Urine Trace <=Trace mg/dL LAB URINALYSIS - AUTOMATED METHOD 04/03/2025 9:41 AM [facility] Glucose, Urine Negative Negative mg/dL LAB URINALYSIS - AUTOMATED METHOD 04/03/2025 9:41 AM [facility] Ketones, Urine Negative Negative mg/dL LAB URINALYSIS - AUTOMATED METHOD 04/03/2025 9:41 AM [facility] Urobilinogen , Urine 0.2 0.2 - 1.0 mg/dL LAB URINALYSIS - AUTOMATED METHOD 04/03/2025 9:41 AM [facility] Bilirubin, Urine Negative Negative LAB URINALYSIS - AUTOMATED METHOD 04/03/2025 9:41 AM [facility] Blood, Urine Negative Negative LAB URINALYSIS - AUTOMATED METHOD 04/03/2025 9:41 AM [facility] RBC, Urine 2 0 - 4 /HPF 04/03/2025 9:41 AM [facility] WBC, Urine >100(H) 0 - 4 /HPF 04/03/2025 9:41 AM [facility] Squamous Epithelial, Urine 60 0 - 60 /LPF 04/03/2025 9:41 AM [facility] Bacteria, Urine Few(A) Negative /HPF 04/03/2025 9:41 AM [facility] Urine Urine specimen obtained by clean catch procedure / Unknown Non-blood Collection / Unknown 04/03/2025 4:00 AM EST 04/03/2025 9:06 AM EST Torrey Kwok MD LAB URINE ORDERABLES Final Resul t Performing Organization Address [facility]/ZIP Co de Phone Number [facility] [address] [place] [address], [place] [phone] * Frost urine culture tube (04/03/2025 4:00 AM EST) Only the most recent of3 resultswithin the time period is included. Pathologist [facility] Extra Tube Hold for add-ons. 04/03/2025 11:01 AM EST [facility] Comment:Auto resulted. Urine Urine specimen obtained by clean catch procedure / Unknown Non-blood Collection / Unknown 04/03/2025 4:00 AM EST 04/03/2025 9:06 AM EST us Torrey Kwok MD LAB URINE ORDERABLES Final Resul t Performing Organization Address [facility] de Phone Number [facility] [address] [place] [address], [place] [phone] * (ABNORMAL) Complete blood count (03/30/2025 5:44 AM EST) Only the most recent of9 resultswithin the time period is included. [facility] WBC 6.3 4.8 - 10.8 K/mcL LAB HEMETOLOGY METHOD 03/30/2025 11:11 AM [facility] RBC 3.30(L) 3.80 - 4.80 M/mcL LAB HEMETOLOGY METHOD 03/30/2025 11:11 AM [facility] Hemoglobin 10.3(L) 11.5 - 16.0 g/dL LAB HEMETOLOGY METHOD 03/30/2025 11:11 AM [facility] Hematocrit 31.9(L) 35.0 - 47.0 % LAB HEMETOLOGY METHOD 03/30/2025 11:11 AM [facility] MCV 97.3 79.0 - 98.0 FL LAB HEMETOLOGY METHOD 03/30/2025 11:11 AM EST [facility] MCH 31.4 27.0 - 32.0 pcg LAB HEMETOLOGY METHOD 03/30/2025 11:11 AM [facility] MCHC 32.3 32.0 - 37.0 g/dL LAB HEMETOLOGY METHOD 03/30/2025 11:11 AM [facility] RDW 16.8(H) 11.0 - 15.0 % LAB HEMETOLOGY METHOD 03/30/2025 11:11 AM [facility] Platelets 267 130 - 400 K/mcL LAB HEMETOLOGY METHOD 03/30/2025 11:11 AM [facility] MPV 10.1 7.0 - 11.0 FL LAB HEMETOLOGY METHOD 03/30/2025 11:11 AM [facility] NRBC 0.0 <1.0 % LAB HEMETOLOGY METHOD 03/30/2025 11:11 AM [facility] NRBC Absolute 0.00 <0.10 K/mcL LAB HEMETOLOGY METHOD 03/30/2025 11:11 AM [facility] Blood Venous blood specimen / Unknown Venipuncture / Unknown 03/30/2025 5:44 AM EST 03/30/2025 10:15 AM EST us Torrey Kwok MD LAB BLOOD ORDERABLES Final Resul t [facility] [address] [place] [address], * (ABNORMAL) Basic metabolic panel (03/30/2025 5:44 AM EST) Only the most recent of11 resultswithin the time period is included. Sodium 134 133 - 145 mmol/L 03/30/2025 11:36 AM EST [facility] Potassium 4.5 3.5 - 5.5 mmol/L 03/30/2025 11:36 AM [facility] Chloride 95(L) 96 - 110 mmol/L 03/30/2025 11:36 AM [facility] CO2 29 21 - 32 mmol/L 03/30/2025 11:36 AM [facility] Anion Gap 10 3 - 11 03/30/2025 11:36 AM [facility] Glucose 163(H) 70 - 100 mg/dL 03/30/2025 11:36 AM [facility] BUN 39(H) 5 - 25 mg/dL 03/30/2025 11:36 AM [facility] Creatinine 1.53(H) 0.50 - 1.10 mg/dL 03/30/2025 11:36 AM [facility] eGFR 33(L) >=60 mL/min/1. 73m2 03/30/2025 11:36 AM [facility] Comment:Calculation based on the Chronic Kidney Disease Epidemiology Collaboration (CKD-EPI) equation refit without adjustment for race. BUN/Creatinine Ratio 25.5 03/30/2025 11:36 AM [facility] Calcium 8.3(L) 8.5 - 10.5 mg/dL 03/30/2025 11:36 AM [facility] Blood Venous blood specimen / Unknown Venipuncture / Unknown 03/30/2025 5:44 AM EST 03/30/2025 10:15 AM EST us Torrey Kwok MD LAB BLOOD ORDERABLES Final Resul t [facility] [address] [place] [address], * (ABNORMAL) Urinalysis with reflex microscopic (03/12/2025 9:00 PM EST) [facility] Specific [place] Urine 1.012 1.003 - 1.030 LAB URINALYSIS - AUTOMATED METHOD 03/13/2025 11:30 AM [facility] [facility] pH, Urine 6.5 5.0 - 8.0 pH LAB URINALYSIS - AUTOMATED METHOD 03/13/2025 11:30 AM [facility] Leukocytes, Urine Small(A) Negative LAB URINALYSIS - AUTOMATED METHOD 03/13/2025 11:30 AM [facility] Nitrite, Urine Negative Negative LAB URINALYSIS - AUTOMATED METHOD 03/13/2025 11:30 AM [facility] Protein, Urine 30(A) <=Trace mg/dL LAB URINALYSIS - AUTOMATED METHOD 03/13/2025 11:30 AM [facility] Glucose, Urine 500(A) Negative mg/dL LAB URINALYSIS - AUTOMATED METHOD 03/13/2025 11:30 AM [facility] Ketones, Urine Negative Negative mg/dL LAB URINALYSIS - AUTOMATED METHOD 03/13/2025 11:30 AM [facility] Urobilinogen , Urine 0.2 0.2 - 1.0 mg/dL LAB URINALYSIS - AUTOMATED METHOD 03/13/2025 11:30 AM [facility] Bilirubin, Urine Negative Negative LAB URINALYSIS - AUTOMATED METHOD 03/13/2025 11:30 AM [facility] Blood, Urine Negative Negative LAB URINALYSIS - AUTOMATED METHOD 03/13/2025 11:30 AM [facility] RBC, Urine 2 0 - 4 /HPF 03/13/2025 11:30 AM [facility] WBC, Urine >100(H) 0 - 4 /HPF 03/13/2025 11:30 AM [facility] Squamous Epithelial, Urine 20 0 - 60 /LPF 03/13/2025 11:30 AM [facility] Bacteria, Urine Negative Negative /HPF 03/13/2025 11:30 AM EST [facility] Yeast, Urine Present(A) None /HPF 03/13/2025 11:30 AM EST [facility] Urine Urine specimen obtained by clean catch procedure / Unknown Non-blood Collection / Unknown 03/12/2025 9:00 PM EST 03/13/2025 11:00 AM EST us Torrey Kwok MD LAB URINE ORDERABLES Final Resul t Performing Organization Address City/[facility]/ZIP Co de Phone Number [facility] [address] [place] [address], [place] [phone] * Culture urine (03/12/2025 9:00 PM EST) Only the most recent of3 resultswithin the time period is included. Culture, Urine 10,000-49,000 CFU/mL Mixed bacterial morphotypes present suggestive of possible contamination during collection. Suggest appropriate recollection if clinically indicated. 03/14/2025 9:30 AM [facility] Urine Urine specimen obtained by clean catch procedure / Unknown Non-blood Collection / Unknown 03/12/2025 9:00 PM EST 03/13/2025 11:00 AM EST us Torrey Kwok MD LAB MICROBIOLOGY - GENERAL ORDER GENET Final Result [facility] [address] [place] [address], [place] [phone] * Clostridium difficile molecular study (03/11/2025 10:35 AM EST) Clostridium difficile PCR Negative Negative LAB MICROBIOLOGY METHOD 03/12/2025 12:23 PM EST [facility] Comment:NEGATIVE FOR TOXIN P RODUCING CLOSTRIDIOIDES DIFFICILE, NO ADDITIONAL TESTING IS NECESSARY. Stool Rectum structure / Unknown 03/11/2025 10:35 AM EST 03/12/2025 11:34 AM EST us Torrey Kwok MD LAB MICROBIOLOGY - GENERAL ORDER GENET Final Result Performing Organization Address [facility]/ZIP Co de Phone Number [facility] [address] [place] [address], [place] [phone] * Clostridium difficile toxin (03/11/2025 10:35 AM EST) C difficile Toxins A+B, EIA 03/12/2025 11:34 AM EST [facility] Comment:Refer to C. difficil e PCR assay for results. Stool Rectum structure / Unknown 03/11/2025 10:35 AM EST 03/12/2025 10:31 AM EST us Torrey Kwok MD LAB MICROBIOLOGY - GENERAL ORDER GEENT Final Result Performing Organization Address [facility] Co de Phone Number [facility] [address] [place] [address], [place] [phone] * (ABNORMAL) Thyroid stimulating hormone with reflex to free t4 and free t3 (02/09/2025 5:08 AM EST) Pathologist [facility] TSH 14.02(H) 0.40 - 4.00 mcIU/mL LAB CHEMISTRY METHOD 02/09/2025 2:06 PM EST [facility] Blood Venous blood specimen / Unknown Venipuncture / Unknown 02/09/2025 5:08 AM EST 02/09/2025 10:54 AM EST us Torrey Kwok MD LAB BLOOD ORDERABLES Final Resul t Performing Organization Address [facility]/ZIP Co de Phone Number [facility] [address] [place] [address], [place] [phone] * Free thyroxine with reflex to free triiodothyronine (02/09/2025 5:08 AM EST) Free T4 1.23 0.70 - 1.80 ng/dL LAB CHEMISTRY METHOD 02/09/2025 2:42 PM EST [facility] Blood Venous blood specimen / Unknown Venipuncture / Unknown 02/09/2025 5:08 AM EST 02/09/2025 10:54 AM EST us Torrey Kwok MD LAB BLOOD ORDERABLES Final Resul t Performing Organization Address City/[facility]/ZIP Co de Phone Number [facility] [address] [place] [address], [place] [phone] * (ABNORMAL) Triiodothyronine free (02/09/2025 5:08 AM EST) T3, Free 143(L) 230 - 420 pcg/dL LAB CHEMISTRY METHOD 02/09/2025 4:13 PM EST [facility] Blood Venous blood specimen / Unknown Venipuncture / Unknown 02/09/2025 5:08 AM EST 02/09/2025 10:54 AM EST us Torrey Kwok MD LAB BLOOD ORDERABLES Final Resul t Performing Organization Address City/[facility] Co de Phone Number [facility] [address] [place] [address], [place] [phone] * (ABNORMAL) Thyroid stimulating hormone (01/26/2025 7:10 AM EDT) TSH 62.60(H) 0.40 - 4.00 mcIU/mL LAB CHEMISTRY METHOD 01/26/2025 9:39 PM EDT [facility] Blood Venous blood specimen / Unknown Venipuncture / Unknown 01/26/2025 7:10 AM EDT 01/26/2025 10:00 AM EDT us Torrey Kwok MD LAB BLOOD ORDERABLES Final Resul t Performing Organization Address City/[facility] Co de Phone Number [facility] [address] [place] [address], [place] [phone] * (ABNORMAL) Hemoglobin A1c (12/22/2024 6:38 AM EDT) Hemoglobin A1C 9.2(H) <6.5 % LAB CHEMISTRY METHOD 12/22/2024 1:38 PM EDT [facility] Mean Bld Glu Estim. 217 mg/dL LAB CHEMISTRY METHOD 12/22/2024 1:38 PM EDT [facility] Blood Venous blood specimen / Unknown Venipuncture / Unknown 12/22/2024 6:38 AM EDT 12/22/2024 11:02 AM EDT Torrey Kwok MD LAB BLOOD ORDERABLES Final Resul t Performing Organization Address [facility]/ZIP Co de Phone Number [facility] [address] [place] [address], [place] [phone] from Last 3 Months or Most Recently Relevant to Health Maintenance Insurance MEDICARE [facility] Care Teams Timber Cruiser Relationship Specialty Start Date End Date Torrey Kwok MD [address] [place] [address] [address] [place] [address] PCP - General Geriatric Medicine 04/25/24
--- OUTSIDE RECORDS SUMMARY | 2025-04-03 22:05 | XMS_ITS | Encounter Summary ---
Author Organization [facility] Address [address] [place] [address] Care Team Providers Care Aerospace Mechanic Name Role Phone Torrey Kwok MD Primary Care Provider [phone] Encounter Details Date Type Department Care Team (Late st Contact Info) Description 12/18/2024 Lab Requisition [facility] - Main Lab [address] [facility] [place] [address] Torrey Kwok MD [address] [place], [place] [id number] Type 2 diabetes mellitus without complications (CMS/HCC V24, CMS/[facility] V28) Social History Tobacco Use Types [...] mellitus without complications (CMS/HCC V24, CMS/[facility] V28) documented in this encounter Results * (ABNORMAL) Hemoglobin A1c (12/19/2024 6:26 AM EDT) Hemoglobin A1C 9.1(H) <6.5 % LAB CHEMISTRY METHOD 12/19/2024 12:42 PM T [facility] Mean Bld Glu Estim. 214 mg/dL LAB CHEMISTRY METHOD 12/19/2024 12:42 PM T [facility] Blood Venous blood specimen / Unknown Venipuncture / Unknown 12/19/2024 6:26 AM EDT 12/19/2024 10:41 AM EDT Torrey Kwok MD LAB BLOOD ORDERABLES Final Resul t [facility] ([facility]) [facility] [address] [place] [address], documented in this encounter Visit Diagnoses Diagnosis Type 2 diabetes mellitus without complications (CMS/HCC V24, CMS/HCC V28) documented in this encounter Additional Health Concerns Infection Onset Date Last Indicated Resolved Time C. difficile Rule-Out 03/12/2025 03/11/20252024 11:34 AM EST documented as of this encounter Care Teams Aerospace Mechanic Relationship Specialty Start Date End Date Torrey Kwok MD [address] [place] [address] [address] [place] [address] PCP - General Geriatric Medicine 04/25/24 documented as of this encounter
--- OUTSIDE RECORDS SUMMARY | 2025-04-03 22:05 | XMS_ITS | Patient Health Record ---
Author Organization [facility] Address [address] [place] [address] Care Team Providers Care Liner Assembler Name Role Phone Po Monique HODGE Primary Care Provider John Moore Jr Unavailable [phone] Allergies Allergen (clinical drug ingredient) Drug/Non Drug Allergy documented on EMR Reaction Allergy Type Onset Date Status codeine Codeine Sulfate Unknown Drug Allergy A ctive Reason For Referral No Information Medications Medication SIG (Take, Route, Frequency, Duration) Notes Start Date End Date Status Omeprazole 20 MG Capsule Delayed Release 1 capsule Orally; Duration: 30 days 10/30/2018 Active HumaLOG 100 UNIT/ML Solution TID Subcutaneous as directed Active Furosemide 40 MG Tablet 1 tablet Orally Twice a day Active Losartan Potassium 100 MG Tablet 1 tablet Orally Once a day Active Amoxicillin 500 MG Capsule 2 capsules Or ally Twice a day; Duration: 14 days 10/30/2018 Active Levothyroxine Sodium 125 MCG Tablet 1 tablet on an empty stomach in the morning Orally Once a day Active Clarithromycin 500 MG Tablet 1 tablet Orally every 12 hrs; Duration: 14 days 10/30/2018 Active Xarelto 20 MG Tablet TK 1 T PO QD WF Ora l Once a day Active Spironolactone 25 MG Tablet TK 1 T PO QD Oral Once a day Active Amiodarone HCl 100 MG Tablet TK 1 T PO D Orally Once a day Active Toujeo SoloStar 300 UNIT/ML Solution Pen-injector 14 UNITS Subcutaneous DIRECTED Active hydrALAZINE HCl 10 MG Tablet TK 1 T PO BID Oral as directed Active Metoprolol Succinate 100MG TABLET 1 TABLET ORALLY ONCE A DAY Active Omeprazole 20 Capsule Delayed Release TAKE 1 CAPSULE BY MOUTH TWICE DAILY; Duration: 90 days Active Immunizations Vaccine Route Administration Date Status Comme nts Influenza Unknown 02/08/2016 Administered Influenza Unknown 02/07/2018 Administered Social History Social History Additional Details Category Social Info Options Details Miscellaneous: Marital status: Occupation: retired Problems Problem Type SNOMED Code ICD Code Onset Dates Problem Status W/U Status Risk Notes Problem Gastro-esophagea l reflux disease without esophagitis (944112658) Gastro-esophage al reflux disease without esophagitis (K21.9) Active confirmed Problem Dysphagia (95946495) Dysphagia, unspecified type (R13.10) Active confirmed Problem Abnormal UGI series (R93.3) Active confirmed Problem Essential hypertension (87947683) Hypertension, unspecified type (I10) Active confirmed Plan Of Treatment Pending Test Test Name Order Date XR GI SERIES 07/20/2016 Insurance Providers Payer Name Payer Address Payer Phone Subscriber Number Group Number Insured Name Patient Relationship to Insured Coverage Start Date Coverage End Date MEDICARE OF [place] [address] [place] [address] [id number] CHARLY SCHWARTZ Self - patient is the insured [employer] CLAIMS [address] [place] [address] [id number] CHARLY SCHWARTZ Self - patient is the insured Medical (General) History Medical History History ICD Code colonoscopy 03/25/2004 diabetes mellitus osteoporosis Hypothyroidism elevated cholesterol hypertension diverticulosis internal hemorrhoids congestive heart failure urinary incontinence-mild Surgical History Surgery Date(Month/Year) cholecystectomy knee surgery section left hip replacement right knee replacement cardioversion 12/2015
--- OUTSIDE RECORDS SUMMARY | 2025-04-03 22:05 | XMS_ITS | Encounter Summary ---
Author Organization [facility] Address [address] [place] [address] Care Team Providers Care Replenishment Buyer Name Role Phone Torrey Kwok MD Primary Care Provider [phone] Encounter Details Date Type Department Care Team (Late st Contact Info) Description 06/20/2024 Lab Requisition [facility] - Main Lab 299 [facility] [employer] [facility] ([facility] [place] [address] Torrey Kwok MD [address] [place], [place] [phone] Essential (primary) hypertension; Type 2 diabetes mellitus [...] LAB CHEMISTRY METHOD 06/20/2024 11:38 AM EDT [facility] ([facility] Potassium 4.1 3.5 - 5.5 mmol/L LAB CHEMISTRY METHOD 06/20/2024 11:38 AM [facility] Chloride 104 96 - 110 mmol/L LAB CHEMISTRY METHOD 06/20/2024 11:38 AM [facility] CO2 29 21 - 32 mmol/L LAB CHEMISTRY METHOD 06/20/2024 11:38 AM [facility] Anion Gap 5 3 - 11 LAB CHEMISTRY METHOD 06/20/2024 11:38 AM [facility] Glucose 53(L) 70 - 100 mg/dL LAB CHEMISTRY METHOD 06/20/2024 11:38 AM [facility] BUN 39(H) 5 - 25 mg/dL LAB CHEMISTRY METHOD 06/20/2024 11:38 AM [facility] Creatinine 0.97 0.50 - 1.10 mg/dL LAB CHEMISTRY METHOD 06/20/2024 11:38 AM [facility] eGFR 57(L) >=60 mL/min/1. 73m2 LAB CHEMISTRY METHOD 06/20/2024 11:38 AM [facility] Comment:Calculation based on the Chronic Kidney Disease Epidemiology Collaboration (CKD-EPI) equation refit without adjustment for race. BUN/Creatinine Ratio 40.2 LAB CHEMISTRY METHOD 06/20/2024 11:38 AM [facility] Calcium 9.2 8.5 - 10.5 mg/dL LAB CHEMISTRY METHOD 06/20/2024 11:38 AM [facility] Blood Venous blood specimen / Unknown Venipuncture / Unknown 06/20/2024 6:10 AM EDT 06/20/2024 10:40 AM EDT us Torrey Kwok MD LAB BLOOD ORDERABLES Final Resul t [facility] [address] [place], [place] [address] [phone] * (ABNORMAL) Complete blood count (06/20/2024 6:10 AM EDT) [facility] Signature WBC 6.5 4.8 - 10.8 K/mcL LAB HEMETOLOGY METHOD 06/20/2024 11:08 AM [facility] RBC 3.70(L) 3.80 - 4.80 M/mcL LAB HEMETOLOGY METHOD 06/20/2024 11:08 AM [facility] Hemoglobin 12.0 11.5 - 16.0 g/dL LAB HEMETOLOGY METHOD 06/20/2024 11:08 AM [facility] Hematocrit 37.1 35.0 - 47.0 % LAB HEMETOLOGY METHOD 06/20/2024 11:08 AM [facility] MCV 100.5(H) 79.0 - 98.0 FL LAB HEMETOLOGY METHOD 06/20/2024 11:08 AM [facility] MCH 32.5(H) 27.0 - 32.0 pcg LAB HEMETOLOGY METHOD 06/20/2024 11:08 AM [facility] MCHC 32.3 32.0 - 37.0 g/dL LAB HEMETOLOGY METHOD 06/20/2024 11:08 AM [facility] RDW 18.3(H) 11.0 - 15.0 % LAB HEMETOLOGY METHOD 06/20/2024 11:08 AM [facility] Platelets 313 130 - 400 K/mcL LAB HEMETOLOGY METHOD 06/20/2024 11:08 AM [facility] MPV 10.8 7.0 - 11.0 FL LAB HEMETOLOGY METHOD 06/20/2024 11:08 AM [facility] NRBC 0.0 [...] t [facility] [address] [place] [address], documented in this encounter Visit Diagnoses Diagnosis Essential (primary) hypertension Unspecified essential hypertension Type 2 diabetes mellitus without complications (CMS/HCC V24, CMS/HCC V28) documented in this encounter Additional Health Concerns Infection Onset Date Last Indicated Resolved Time Respiratory Rule-Out 07/12/2024 07/11/2024 025 11:25 AM EDT C. difficile Rule-Out 03/12/2025 03/11/20252024 11:34 AM EST documented as of this encounter Care Teams Replenishment Buyer Relationship Specialty Start Date End Date Torrey Kwok MD [address] [place] [address] [address] [place] [address] PCP - General Geriatric Medicine 04/25/24 documented as of this encounter
--- OUTSIDE RECORDS SUMMARY | 2025-04-03 22:05 | XMS_ITS | Encounter Summary ---
Author Organization [facility] Address [address] [place] [address] Care Team Providers Care Hat Renovator Name Role Phone Torrey Kwok MD Primary Care Provider [phone] Encounter Details Date Type Department Care Team (Late st Contact Info) Description 12/13/2024 Lab Requisition [facility] - Main Lab [address] [facility] [place] [address] Torrey Kwok MD [address] [place], [place] [phone] Type 2 diabetes mellitus with diabetic chronic [...] diabetes mellitus with diabetic chronic kidney disease ([facility] V24, [facility] V28) Essential (primary) hypertension Heart failure, unspecified ([facility] V24, [facility] V28) 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 ([facility] V24, [facility] V28) documented in this encounter Results * (ABNORMAL) Complete blood count (12/15/2024 6:28 AM EDT) [facility] WBC 5.3 4.8 - 10.8 K/mcL LAB HEMETOLOGY METHOD 12/15/2024 9:45 AM [facility] RBC 3.50(L) 3.80 - 4.80 M/mcL LAB HEMETOLOGY METHOD 12/15/2024 9:45 AM [facility] Hemoglobin 10.8(L) 11.5 - 16.0 g/dL LAB HEMETOLOGY METHOD 12/15/2024 9:45 AM [facility] Hematocrit 34.0(L) 35.0 - 47.0 % LAB HEMETOLOGY METHOD 12/15/2024 9:45 AM [facility] MCV 97.7 79.0 - 98.0 FL LAB HEMETOLOGY METHOD 12/15/2024 9:45 AM [facility] MCH 31.0 27.0 - 32.0 pcg LAB HEMETOLOGY METHOD 12/15/2024 9:45 AM [facility] MCHC 31.8(L) 32.0 - 37.0 g/dL LAB HEMETOLOGY METHOD 12/15/2024 9:45 AM [facility] RDW 15.4(H) 11.0 - 15.0 % LAB HEMETOLOGY METHOD 12/15/2024 9:45 AM [facility] Platelets 299 130 - 400 K/mcL LAB HEMETOLOGY METHOD 12/15/2024 9:45 AM EDT [facility] MPV 10.7 7.0 - 11.0 FL LAB HEMETOLOGY METHOD 12/15/2024 9:45 AM EDT [facility] NRBC 0.0 <1.0 % LAB HEMETOLOGY METHOD 12/15/2024 9:45 AM EDT [facility] NRBC Absolute 0.00 <0.10 K/mcL LAB HEMETOLOGY METHOD 12/15/2024 9:45 AM EDT [facility] Blood Venous blood specimen / Unknown Venipuncture / Unknown 12/15/2024 6:28 AM EDT 12/15/2024 9:33 AM EDT us Torrey Kwok MD LAB BLOOD ORDERABLES Final Resul t [facility] [address] [place] [address], * (ABNORMAL) Basic metabolic panel (12/15/2024 6:28 AM EDT) Sodium 136 133 - 145 mmol/L LAB CHEMISTRY METHOD 12/15/2024 10:12 AM [facility] Potassium 4.1 3.5 - 5.5 mmol/L LAB CHEMISTRY METHOD 12/15/2024 10:12 AM [facility] Chloride 99 96 - 110 mmol/L LAB CHEMISTRY METHOD 12/15/2024 10:12 AM [facility] CO2 30 21 - 32 mmol/L LAB CHEMISTRY METHOD 12/15/2024 10:12 AM [facility] Anion Gap 7 3 - 11 LAB CHEMISTRY METHOD 12/15/2024 10:12 AM [facility] Glucose 321(H) 70 - 100 mg/dL LAB CHEMISTRY METHOD 12/15/2024 10:12 AM [facility] BUN 37(H) 5 - 25 mg/dL LAB CHEMISTRY METHOD 12/15/2024 10:12 AM EDT [facility] Creatinine 1.30(H) 0.50 - 1.10 mg/dL LAB CHEMISTRY METHOD 12/15/2024 10:12 AM EDT [facility] eGFR 40(L) >=60 mL/min/1. 73m2 LAB CHEMISTRY METHOD 12/15/2024 10:12 AM EDT [facility] Comment:Calculation based on the Chronic Kidney Disease Epidemiology Collaboration (CKD-EPI) equation refit without adjustment for race. BUN/Creatinine Ratio 28.5 LAB CHEMISTRY METHOD 12/15/2024 10:12 AM EDT [facility] Calcium 8.9 8.5 - 10.5 mg/dL LAB CHEMISTRY METHOD 12/15/2024 10:12 AM EDT [facility] Blood Venous blood specimen / Unknown Venipuncture / Unknown 12/15/2024 6:28 AM EDT 12/15/2024 9:31 AM EDT us Torrey Kwok MD LAB BLOOD ORDERABLES Final Resul t [facility] [address] [place] [address], documented in this encounter Visit Diagnoses Diagnosis 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, [facility] V28) Essential (primary) hypertension Unspecified essential hypertension Heart failure, unspecified (CMS/HCC V24, [facility] V28) Heart failure, unspecified 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 difficile Rule-Out 03/12/2025 03/11/20252024 11:34 AM EST documented as of this encounter Care Teams Hat Renovator Relationship Specialty Start Date End Date Torrey Kwok MD [address] [place] [address] [address] [place] [address] PCP - General Geriatric Medicine 04/25/24 documented as of this encounter
--- OUTSIDE RECORDS SUMMARY | 2025-04-03 22:05 | XMS_ITS | Clinical Summary ---
Author Organization [facility] Address [address] [facility] [address] [place] [address] Phone Care Team Providers Care Office Executive Name Role Phone Monique White MD Primary Care Provider [phone] Allergies Active Allergy Reactions Criticality Noted Date [...] Acquired hammer toe of right foot 10/03/2021 Hammer toe 10/03/2021 Osteoporosis 06/01/2021 Proliferative retinopathy due to diabetes mellit us 06/01/2021 Generalized osteoarthritis 01/12/2021 Overview (06/01/2021): Last Assessment & Plan: Joint protection, energy conservation. Gentle, regular exercise routine as educated by PT (per her report last PT at [facility] in July-August 2020). I have encouraged [...] Tobacco: Former Cigarettes 1 Q uit: 04/09/1964 Smokeless Tobacco: Never Tobacco [...] Foot Exam 05/09/2020 Diabetes: Hemoglobin A1C 07/24/2024 04/25/2024, 04/09 Influenza Vaccine (#1) 2024 , 01/28/2019, 01/07/2018, Additional history exists Hepatitis B Vaccine Aged Out No longe r eligible based on patient's age to complete this topic Insurance [facility] Medicare [facility] Medicare Care Teams Office Executive Relationship Specialty Start Date End Date Monique White MD [facility] [address] [place] PCP - General Internal Medicine 03/11/21
--- OUTSIDE RECORDS SUMMARY | 2025-04-03 22:05 | XMS_ITS | Patient Health Record ---
Author Organization [facility] Address [address] [facility] [place] [address] Care Team Providers Care Cafe Lead Name Role Phone Monique White Primary Care Provider Arturo Brown Unavailable [phone] Allergies Allergen (clinical drug ingredient) Drug/Non Drug [...] Problem Acquired hammer toe of right foot (3224580349357441 ) Other hammer toe(s) (acquired), right foot (M20.41) Active confirmed Problem Acquired hammer toe of left foot ([id number] ) Other hammer toe(s) (acquired), left foot (M20.42) Active confirmed Problem Polyneuropathy due to diabetes mellitus type I (914547467) Type 1 diabetes mellitus with diabetic polyneuropathy (E10.42) Active confirmed Vital Signs Blood pressure diastolic 84 mm Hg 08/15/2024 Height 4 ft 10 in in 08/15/2024 Blood pressure systolic 126 mm Hg 08/15/2024 Weight 138 lbs 08/15/2024 BMI 28.84 kg/m2 08/15/2024 Procedures Procedure Date Ordered Date Performed Result Body Sit e 47977-SASZBLY NAIL, 6 OR MORE 08/15/2024 N/A 45208-HCLN SKIN LESIONS, 2 TO 4 08/15/2024 N/A Encounters Encounter Location Date Provider Diagnosis [facility] [address] 08/15/2024 Arturo Simon Type 1 diabetes mellitus with diabetic polyneuropathy E10.42 and Onychomycosis B35.[address] [address] 05/05/2024 Arturo Simon [facility] [address] [address] 11/27/2024 Arturodeshawn Simon [facility] [address] 03/09/2025 Arturo Simon Assessments Encounter Date Diagnosis (ICD Code) Assessment Notes Treatment Notes Treatment Clinical Notes Section Notes 08/15/2024 Type 1 diabetes mellitus with diabetic polyneuropathy (ICD-10 - E10.42) 08/15/2024 Onychomycosis (ICD-10 - B35.1) Plan Of Treatment Pending Test Test Name Order Date Hemoglobin A1c 06/23/2014 Hemoglobin A1c 01/05/2015 Glucose Fasting 06/23/2014 X ray : Foot, right 3V 06/28/2023 34194-RBNKHAI NAIL, 6 OR MORE 05/22/2023 20422-CRXXBKR NAIL, 6 OR MORE 12/12/2022 27842-OASSQPK NAIL, 6 OR MORE 03/06/2023 25011-EFLACQG NAIL, 6 OR MORE 01/10/2022 76820-RYDHVEX NAIL, 6 OR MORE 04/18/2022 87455-UWYEOJZ NAIL, 6 OR MORE 07/11/2022 94634-ZOZEBRP NAIL, 6 OR MORE 10/03/2022 31200-QEFXAEA NAIL, 6 OR MORE 09/21/2023 36400-NZJIMCQ NAIL, 6 OR MORE 12/04/2023 84915-ASFPKGQ NAIL, 6 OR MORE 02/05/2024 98845-ACRIOZZ NAIL, 6 OR MORE 08/15/2024 95524-KRZEKVK NAIL, 6 OR MORE 07/10/2017 12260-HFFCOIJ NAIL, 6 OR MORE 10/09/2017 68928-EJWCNXB NAIL, 6 OR MORE 01/08/2018 64015-GBMKDOF NAIL, 6 OR MORE 04/30/2018 51960-OPKWGXG NAIL, 6 OR MORE 07/30/2018 87641-UBSXLIV NAIL, 6 OR MORE 10/29/2018 42946-CWLNAMB NAIL, 6 OR MORE 02/04/2019 14708-SVCOVGK NAIL, 6 OR MORE 05/13/2019 31670-YXYLWBO NAIL, 6 OR MORE 08/12/2019 73514-JCZEQHT NAIL, 6 OR MORE 11/11/2019 87530-GRKOFAM NAIL, 6 OR MORE 02/17/2020 86833-WWYGEEM NAIL, 6 OR MORE 05/25/2020 94760-KRXASHO NAIL, 6 OR MORE 08/24/2020 38069-KAKBMUJ NAIL, 6 OR MORE 11/23/2020 06459-DIFPXHA NAIL, 6 OR MORE 02/22/2021 68878-RNFLRST NAIL, 6 OR MORE 05/24/2021 96578-KLMZYAO NAIL, 6 OR MORE 10/11/2021 55617-TCHBJXT NAIL, 6 OR MORE 10/06/2014 10317-DNUVFXK NAIL, 6 OR MORE 06/10/2013 55991-CKPMNXZ NAIL, 6 OR MORE 03/17/2014 93314-RMFKDEI NAIL, 6 OR MORE 06/23/2014 63833-SVMHSKX NAIL, 6 OR MORE 01/05/2015 55429-EBZILEU NAIL, 6 OR MORE 04/20/2015 16369-ICPASLF NAIL, 6 OR MORE 07/20/2015 86766-TIQWLXB NAIL, 6 OR MORE 10/26/2015 64389-LAZAUJH NAIL, 6 OR MORE 01/25/2016 14894-NIGSQCD NAIL, 6 OR MORE 05/23/2016 18997-VUWCANB NAIL, 6 OR MORE 08/25/2016 16367-UZASDYG NAIL, 6 OR MORE 12/05/2016 45347-BECYIRV NAIL, 6 OR MORE 03/06/2017 78812-OQMZDRG NAIL, 6 OR MORE 12/27/2010 83234-WMGUONK NAIL, 6 OR MORE 03/21/2011 49888-HVYAEKC NAIL, 6 OR MORE 06/13/2011 94155-TWVCOLY NAIL, 6 OR MORE 09/12/2011 58351-BTIAJKN NAIL, 6 OR MORE 12/19/2011 50532-XBHATCV NAIL, 6 OR MORE 03/05/2012 88427-VIGRMYV NAIL, 6 OR MORE 05/31/2012 55552-UNACEAE NAIL, 6 OR MORE 08/27/2012 46646-NRABUTG NAIL, 6 OR MORE 12/10/2012 56551-EZLRJTV NAIL, 6 OR MORE 03/11/2013 29699-THBVDGC NAIL, 6 OR MORE 09/16/2013 74513-VKTEYUU NAIL, 6 OR MORE 01/06/2014 96021-Cppihjdj Plate 01/06/2014 40775-Hfgobtpb Plate 09/16/2013 67680-Rwlrdnzq Plate 05/31/2012 51460-Hwnzujfl Plate 06/13/2011 45200-Wdzaxues Plate 03/21/2011 17759-Izydvrzh Plate 12/05/2016 26600-Wcvuxmzo Plate 07/10/2017 45772-Ejyutzbt Plate 07/20/2015 76226-Svnxrkrn Plate 01/05/2015 29875-Juafeyhb Plate 08/27/2012 94800-Odhbihwc Plate 03/17/2014 49681-Ianxoccb Plate 10/06/2014 12124-Dzeqzlwt Plate 09/21/2023 37729-Vortnsmo Plate Each Additional 20744-Mxinhfgu Plate Each Additional 01/2014 77667-Eoaxxvkd Plate Each Additional 92592 I&D ABSCESS- SIMPLE,SINGLE 012 63753 I&D ABSCESS- SIMPLE,SINGLE 011 65213 I&D ABSCESS- SIMPLE,SINGLE 021 96553-YCGH SKIN LESIONS, 2 TO 4 09/21/19 24 29876-HAIX SKIN LESIONS, 2 TO 4 02/05/20 24 27378-NNJS SKIN LESIONS, 2 TO 4 12/04/19 24 74303-SCDI SKIN LESIONS, 2 TO 4 08/16/19 25 25656-SGPH SKIN LESIONS, 2 TO 4 10/04/19 23 42845-LETL SKIN LESIONS, 2 TO 4 07/12/19 23 21549-WZEN SKIN LESIONS, 2 TO 4 04/18/19 23 10159-FRTS SKIN LESIONS, 2 TO 4 01/11/20 22 15469-WOJZ SKIN LESIONS, 2 TO 4 03/06/20 23 27981-OWAJ SKIN LESIONS, 2 TO 4 12/13/19 23 28707-OOBO SKIN LESIONS, 2 TO 4 05/22/19 24 07222-WIPV SKIN LESIONS, 2 TO 4 10/12/19 97563-UKDJ SKIN LESIONS, 2 TO 4 05/24/19 08197-IDDL SKIN LESIONS, 2 TO 4 02/23/20 21 34527-OMUE SKIN LESIONS, 2 TO 4 11/24/19 21 10059-MLTS SKIN LESIONS, 2 TO 4 08/25/19 21 68280-KAVL SKIN LESIONS, 2 TO 4 05/25/19 73513-JFKO SKIN LESIONS, 2 TO 4 02/17/20 20 30525-CYCM SKIN LESIONS, 2 TO 4 11/11/19 20 01857-NURA SKIN LESIONS, 2 TO 4 08/12/19 20 47718-GGHJ SKIN LESIONS, 2 TO 4 05/13/19 20 11593-HTUW SKIN LESIONS, 2 TO 4 02/05/20 19 81105-VNXI SKIN LESIONS, 2 TO 4 10/30/19 19 73639-HMCQ SKIN LESIONS, 2 TO 4 07/31/19 19 55342-EUJU SKIN LESIONS, 2 TO 4 04/30/19 19 63059-MIUW SKIN LESIONS, 2 TO 4 01/09/20 18 79833-SWIW SKIN LESIONS, 2 TO 4 10/10/19 18 40583-RSQA SKIN LESIONS, 2 TO 4 05/31/19 13 54757-DVGR SKIN LESIONS, 2 TO 4 03/05/20 12 93424-BTEO SKIN LESIONS, 2 TO 4 12/19/19 12 45369-RYOP SKIN LESIONS, 2 TO 4 08/28/19 13 68935-EJER SKIN LESIONS, 2 TO 4 03/11/20 13 31161-RGPW SKIN LESIONS, 2 TO 4 12/11/19 13 78460-WSON SKIN LESIONS, 2 TO 4 01/07/20 14 61899-ZLFY SKIN LESIONS, 2 TO 4 09/17/19 14 08304-AAJM SKIN LESIONS, 2 TO 4 04/20/19 16 41883-JWGI SKIN LESIONS, 2 TO 4 01/06/20 15 90343-PNLZ SKIN LESIONS, 2 TO 4 06/24/19 15 68968-SMAK SKIN LESIONS, 2 TO 4 10/07/19 15 09850-VGLF SKIN LESIONS, 2 TO 4 03/17/20 14 35629-WTRA SKIN LESIONS, 2 TO 4 06/11/19 14 54218-BVBV SKIN LESIONS, 2 TO 4 07/20/19 16 57614-PPOV SKIN LESIONS, 2 TO 4 10/26/19 16 64499-OUNA SKIN LESIONS, 2 TO 4 05/23/19 17 78662-BNKP SKIN LESIONS, 2 TO 4 08/26/19 17 92108-VDJI SKIN LESIONS, 2 TO 4 01/25/20 16 27876-OWJP SKIN LESIONS, 2 TO 4 07/11/19 18 48560-CBEJ SKIN LESIONS, 2 TO 4 03/06/20 17 29744-HETI SKIN LESIONS, 2 TO 4 12/06/19 17 17686-NTDN SKIN LESION 09/12/2011 40781-VUNH SKIN LESION 03/21/2011 81466-KNBT SKIN LESION 06/13/2011 89903-Xrehhnwtw, Toes 06/28/2023 Insurance Providers Payer Name Payer Address Payer Phone Subscriber Number Group Number Insured Name Patient Relationship to Insured Coverage Start Date Coverage End Date Medicare National Govt [employer] [address] [place] [address] [id number] Gerri Sanchez Self - patient is the insured 2 [employer] [address] [place] [address] [id number] Gerri Sanchez Self - patient is [...] Date(Month/Year) [facility]23 [facility] 12[facility]2015 [facility] / for medication 6 [facility] cath put in 04/2015
--- OUTSIDE RECORDS SUMMARY | 2025-04-03 22:05 | XMS_ITS | Encounter Summary ---
Author Organization [facility] Address [address] [place] [address] Care Team Providers Care Sports Leadership Instructor Name Role Phone Torrey Kwok MD Primary Care Provider [phone] Encounter Details Date Type Department Care Team (Late st Contact Info) Description 03/06/2025 Lab Requisition [facility] - Main Lab [address] [facility] [place] [address] Torrey Kwok MD [address] [place], [place] [id number] Type 2 diabetes mellitus with diabetic chronic [...] Associated Diagnosis Comments COMPLETE BLOOD COUNT Routine 03/09/2025 5:08 AM EST 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, CMS/HCC V28) 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 V24, CMS/HCC V28) Essential (primary) hypertension Heart failure, unspecified (CMS/HCC V24, CMS/HCC V28) BASIC METABOLIC PANEL Routine 03/09/2025 5:08 AM EST Type 2 diabetes mellitus with diabetic chronic kidney disease ([facility] [place]24, [facility] V28) 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 ([facility] V24, [facility] V28) Essential (primary) hypertension Heart failure, unspecified ([facility] V24, [facility] V28) documented in this encounter Results * (ABNORMAL) Complete blood count (03/09/2025 5:08 AM EST) [facility] WBC 5.5 4.8 - 10.8 K/mcL LAB HEMETOLOGY METHOD 03/09/2025 1:[address] [facility] RBC 3.60(L) 3.80 - 4.80 M/mcL LAB HEMETOLOGY METHOD 03/09/2025 1:[address] [facility] Hemoglobin 11.3(L) 11.5 - 16.0 g/dL LAB HEMETOLOGY METHOD 03/09/2025 1:[address] [facility] Hematocrit 35.0 35.0 - 47.0 % LAB HEMETOLOGY METHOD 03/09/2025 1:[address] [facility] MCV 97.0 79.0 - 98.0 FL LAB HEMETOLOGY METHOD 03/09/2025 1:[address] [facility] MCH 31.3 27.0 - 32.0 pcg LAB HEMETOLOGY METHOD 03/09/2025 1:[address] [facility] MCHC 32.3 32.0 - 37.0 g/dL LAB HEMETOLOGY METHOD 03/09/2025 1:[address] [facility] RDW 17.8(H) 11.0 - 15.0 % LAB HEMETOLOGY METHOD 03/09/2025 1:[address] [facility] Platelets 240 130 - 400 K/mcL LAB HEMETOLOGY METHOD 03/09/2025 1:[address] [facility] MPV 10.5 7.0 - 11.0 FL LAB HEMETOLOGY METHOD 03/09/2025 1:48 PM EST [facility] NRBC 0.0 <1.0 % LAB HEMETOLOGY METHOD 03/09/2025 1:[address] [facility] NRBC Absolute 0.00 <0.10 K/mcL LAB HEMETOLOGY METHOD 03/09/2025 1:48 PM EST [facility] Blood Venous blood specimen / Unknown Venipuncture / Unknown 03/09/2025 5:08 AM EST 03/09/2025 10:45 AM EST us Torrey Kwok MD LAB BLOOD ORDERABLES Final Resul t [facility] [address] [place] [address], * (ABNORMAL) Basic metabolic panel (03/09/2025 5:08 AM EST) Sodium 133 133 - 145 mmol/L 03/09/2025 11:[address] [facility] Potassium 4.3 3.5 - 5.5 mmol/L 03/09/2025 11:[address] [facility] Chloride 95(L) 96 - 110 mmol/L 03/09/2025 11:[address] [facility] CO2 29 21 - 32 mmol/L 03/09/2025 11:[address] [facility] Anion Gap 9 3 - 11 03/09/2025 11:[address] [facility] Glucose 485(HH) 70 - 100 mg/dL 03/09/2025 11:[address] [facility] BUN 41(H) 5 - 25 mg/dL 03/09/2025 11:[address] [facility] Creatinine 1.55(H) 0.50 - 1.10 mg/dL 03/09/2025 11:49 AM EST [facility] eGFR 32(L) >=60 mL/min/1. 73m2 03/09/2025 11:49 AM EST [facility] Comment:Calculation based on the Chronic Kidney Disease Epidemiology Collaboration (CKD-EPI) equation refit without adjustment for race. BUN/Creatinine Ratio 26.5 03/09/2025 11:49 AM EST [facility] Calcium 8.7 8.5 - 10.5 mg/dL 03/09/2025 11:49 AM EST [facility] Blood Venous blood specimen / Unknown Venipuncture / Unknown 03/09/2025 5:08 AM EST 03/09/2025 10:45 AM EST Torrey Kwok MD LAB BLOOD ORDERABLES Final Resul t [facility] [address] [place] [address], documented in this encounter Visit Diagnoses Diagnosis Type 2 diabetes mellitus with diabetic chronic kidney disease ([facility] V24, [facility] V28) 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 difficile Rule-Out 03/12/2025 03/11/20252024 11:34 AM EST documented as of this encounter Care Teams Sports Leadership Instructor Relationship Specialty Start Date End Date Torrey Kwok MD [address] [place] [address] [address] [place] [address] PCP - General Geriatric Medicine 04/25/24 documented as of this encounter
--- OUTSIDE RECORDS SUMMARY | 2025-04-03 22:05 | XMS_ITS | Encounter Summary ---
Author Organization [facility] Address [address] [place] [address] Care Team Providers Care Registration Representative Name Role Phone Torrey Kwok MD Primary Care Provider [phone] Encounter Details Date Type Department Care Team (Late st Contact Info) Description 01/29/2025 Lab Requisition [facility] Lab [address] [facility] [place] [address] Torrey Kwok MD [address] [place], [place] [phone] Abnormal results of thyroid function studies Social [...] LAB CHEMISTRY METHOD 01/29/2025 10:[address] [facility] Potassium 4.0 3.5 - 5.5 mmol/L LAB CHEMISTRY METHOD 01/29/2025 10:[address] [facility] Chloride 101 96 - 110 mmol/L LAB CHEMISTRY METHOD 01/29/2025 10:[address] [facility] CO2 29 21 - 32 mmol/L LAB CHEMISTRY METHOD 01/29/2025 10:56 AM [facility] Anion Gap 7 3 - 11 LAB CHEMISTRY METHOD 01/29/2025 10:56 AM [facility] Glucose 194(H) 70 - 100 mg/dL LAB CHEMISTRY METHOD 01/29/2025 10:56 AM [facility] BUN 28(H) 5 - 25 mg/dL LAB CHEMISTRY METHOD 01/29/2025 10:56 AM [facility] Creatinine 1.16(H) 0.50 - 1.10 mg/dL LAB CHEMISTRY METHOD 01/29/2025 10:56 AM [facility] eGFR 45(L) >=60 mL/min/1. 73m2 LAB CHEMISTRY METHOD 01/29/2025 10:56 AM [facility] Comment:Calculation based on the Chronic Kidney Disease Epidemiology Collaboration (CKD-EPI) equation refit without adjustment for race. BUN/Creatinine Ratio 24.1 LAB CHEMISTRY METHOD 01/29/2025 10:56 AM [facility] Calcium 9.2 8.5 - 10.5 mg/dL LAB CHEMISTRY METHOD 01/29/2025 10:56 AM [facility] Blood Venous blood specimen / Unknown Venipuncture / Unknown 01/29/2025 9:09 AM EDT 01/29/2025 9:56 AM EDT us Torrey Kwok MD LAB BLOOD ORDERABLES Final Resul t [facility] [address] [place] [address], documented in this encounter Visit Diagnoses Diagnosis Abnormal results of thyroid function studies Nonspecific abnormal results of thyroid function study documented in this encounter Additional Health Concerns Infection Onset Date Last Indicated Resolved Time C. difficile Rule-Out 03/12/2025 03/11/20252024 11:34 AM EST documented as of this encounter Care Teams Registration Representative Relationship Specialty Start Date End Date Torrey Kwok MD [address] [place] [address] [address] [place] [address] PCP - General Geriatric Medicine 04/25/24 documented as of this encounter
--- OUTSIDE RECORDS SUMMARY | 2025-04-03 22:05 | XMS_ITS | Encounter Summary ---
Author Organization [facility] Address [address] [place] [address] Care Team Providers Care Wireworker Name Role Phone Torrey Kwok MD Primary Care Provider [phone] Encounter Details Date Type Department Care Team (Late st Contact Info) Description 02/27/2025 Lab Requisition [facility] - Main Lab [address] [facility] [place] [address] Torrey Kwok MD [address] [place], [place] [phone] Type 2 diabetes mellitus with diabetic chronic [...] Associated Diagnosis Comments COMPLETE BLOOD COUNT Routine 03/02/2025 9:06 AM [...] diabetic chronic kidney disease ([facility] V24, [facility] V28) 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 ([facility] V24, [facility] V28) Essential (primary) hypertension Heart failure, unspecified ([facility] V24, [facility] V28) documented in this encounter Results * (ABNORMAL) Complete blood count (03/02/2025 9:06 AM EST) [facility] WBC 7.4 4.8 - 10.8 K/mcL LAB HEMETOLOGY METHOD 03/02/2025 10:30 AM [facility] RBC 3.50(L) 3.80 - 4.80 M/mcL LAB HEMETOLOGY METHOD 03/02/2025 10:30 AM [facility] Hemoglobin 12.2 11.5 - 16.0 g/dL LAB HEMETOLOGY METHOD 03/02/2025 10:30 AM [facility] Hematocrit 33.8(L) 35.0 - 47.0 % LAB HEMETOLOGY METHOD 03/02/2025 10:30 AM [facility] MCV 96.0 79.0 - 98.0 FL LAB HEMETOLOGY METHOD 03/02/2025 10:30 AM [facility] MCH 34.7(H) 27.0 - 32.0 pcg LAB HEMETOLOGY METHOD 03/02/2025 10:30 AM [facility] MCHC 36.1 32.0 - 37.0 g/dL LAB HEMETOLOGY METHOD 03/02/2025 10:30 AM [facility] RDW 17.5(H) 11.0 - 15.0 % LAB HEMETOLOGY METHOD 03/02/2025 10:30 AM [facility] Platelets 275 130 - 400 K/mcL LAB HEMETOLOGY METHOD 03/02/2025 10:30 AM [facility] MPV 10.6 7.0 - 11.0 FL LAB HEMETOLOGY METHOD 03/02/2025 10:30 AM EST [facility] NRBC 0.0 <1.0 % LAB HEMETOLOGY METHOD 03/02/2025 10:30 AM [facility] NRBC Absolute 0.00 <0.10 K/mcL LAB HEMETOLOGY METHOD 03/02/2025 10:30 AM [facility] Blood Venous blood specimen / Unknown Venipuncture / Unknown 03/02/2025 9:06 AM EST 03/02/2025 10:17 AM EST Torrey Kwok MD LAB BLOOD ORDERABLES Final Resul t [facility] [address] [place] [address], * (ABNORMAL) Basic metabolic panel (03/02/2025 9:06 AM EST) Sodium 133 133 - 145 mmol/L 03/02/2025 11:35 AM [facility] Potassium 4.0 3.5 - 5.5 mmol/L 03/02/2025 11:35 AM [facility] Chloride 94(L) 96 - 110 mmol/L 03/02/2025 11:35 AM [facility] CO2 27 21 - 32 mmol/L 03/02/2025 11:35 AM [facility] Anion Gap 12(H) 3 - 11 03/02/2025 11:35 AM [facility] Glucose 418(HH) 70 - 100 mg/dL 03/02/2025 11:35 AM [facility] BUN 43(H) 5 - 25 mg/dL 03/02/2025 11:35 AM [facility] Creatinine 1.68(H) 0.50 - 1.10 mg/dL 03/02/2025 11:35 AM EST [facility] eGFR 29(L) >=60 mL/min/1. 73m2 03/02/2025 11:35 AM EST [facility] Comment:Calculation based on the Chronic Kidney Disease Epidemiology Collaboration (CKD-EPI) equation refit without adjustment for race. BUN/Creatinine Ratio 25.6 03/02/2025 11:35 AM EST [facility] Calcium 8.3(L) 8.5 - 10.5 mg/dL 03/02/2025 11:35 AM [facility] Blood Venous blood specimen / Unknown Venipuncture / Unknown 03/02/2025 9:06 AM EST 03/02/2025 10:17 AM EST Torrey Kwok MD LAB BLOOD ORDERABLES Final Resul t [facility] [address] [place] [address], documented in this encounter Visit Diagnoses Diagnosis Type 2 diabetes mellitus with diabetic chronic kidney disease ([facility] V24, [facility] V28) 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 difficile Rule-Out 03/12/2025 03/11/20252024 11:34 AM EST documented as of this encounter Care Teams Wireworker Relationship Specialty Start Date End Date Torrey Kwok MD [address] [place] [address] [address] [place] [address] PCP - General Geriatric Medicine 04/25/24 documented as of this encounter
--- OUTSIDE RECORDS SUMMARY | 2025-04-03 22:05 | XMS_ITS | Encounter Summary ---
Author Organization [facility] Address [address] [place] [address] Care Team Providers Care Business Support Associate Name Role Phone Torrey Kwok MD Primary Care Provider [phone] Encounter Details Date Type Department Care Team (Late st Contact Info) Description 01/02/2025 Lab Requisition [facility] - Main Lab [address] [facility] [place] [address] Torrey Kwok MD [address] [place] [address] Type 2 diabetes mellitus without complications (CMS/HCC [...] documented as of this encounter Care Teams Business Support Associate Relationship Specialty Start Date End Date Torrey Kwok MD [address] [place], [place] [phone] PCP - General Geriatric Medicine 04/25/24 documented as of this encounter
--- OUTSIDE RECORDS SUMMARY | 2025-04-03 22:05 | XMS_ITS | Encounter Summary ---
Author Organization [facility] Address [address] [place] [phone] Care Team Providers Care Edge Trimming Machine Operator Name Role Phone Torrey Kwok MD Primary Care Provider [phone] Encounter Details Date Type Department Care Team (Late st Contact Info) Description 09/17/2024 Lab Requisition [facility] - Main Lab [address] [facility] [place] [address] Torrey Kwok MD [address] [place], [place] [phone] Hyperglycemia, unspecified; Altered mental status, unspecified Social [...] Culture urine (09/16/2024 3:38 PM EDT) Pathologist [facility] Culture, Urine >100,000 CFU/mL Methicillin-Sensi tive Staphylococcus aureus(A) ANDRE 09/19/2024 10:55 AM EDT [facility] Comment: Edited result: [...] Result [facility] [address] [place] [address], * (ABNORMAL) Urinalysis with reflex microscopic and culture (09/16/2024 3:38 PM EDT) Pathologist [facility] Specific [place] Urine 1.023 1.003 - 1.030 LAB URINALYSIS - AUTOMATED METHOD 09/17/2024 10:53 AM [facility] pH, Urine 6.0 5.0 - 8.0 pH LAB URINALYSIS - AUTOMATED METHOD 09/17/2024 10:53 AM [facility] Leukocytes, Urine Small(A) Negative LAB URINALYSIS - AUTOMATED METHOD 09/17/2024 10:53 AM [facility] Nitrite, Urine Negative Negative LAB URINALYSIS - AUTOMATED METHOD 09/17/2024 10:53 AM [facility] Protein, Urine 30(A) <=Trace mg/dL LAB URINALYSIS - AUTOMATED METHOD 09/17/2024 10:53 AM [facility] Glucose, Urine >=1000(A) Negative mg/dL LAB URINALYSIS - AUTOMATED METHOD 09/17/2024 10:53 AM [facility] Ketones, Urine Trace(A) Negative mg/dL LAB URINALYSIS - AUTOMATED METHOD 09/17/2024 10:53 AM [facility] Urobilinogen , Urine 0.2 0.2 - 1.0 mg/dL LAB URINALYSIS - AUTOMATED METHOD 09/17/2024 10:53 AM [facility] Bilirubin, Urine Negative Negative LAB URINALYSIS - AUTOMATED METHOD 09/17/2024 10:53 AM [facility] Blood, Urine Negative Negative LAB URINALYSIS - AUTOMATED METHOD 09/17/2024 10:53 AM [facility] RBC, Urine 6.6(H) 0 - 4 /HPF LAB URINALYSIS - AUTOMATED METHOD 09/17/2024 10:53 AM [facility] WBC, Urine 25.4(H) 0 - 4 /HPF LAB URINALYSIS - AUTOMATED METHOD 09/17/2024 10:53 AM [facility] Squamous Epithelial, Urine 10 0 - 60 /LPF LAB URINALYSIS - AUTOMATED METHOD 09/17/2024 10:53 AM EDT [facility] Bacteria, Urine Negative Negative /HPF LAB URINALYSIS - AUTOMATED METHOD 09/17/2024 10:53 AM EDT [facility] Hyaline Casts, Urine 0.8 0 - 3 /LPF LAB URINALYSIS - AUTOMATED METHOD 09/17/2024 10:53 AM EDT [facility] Urine Urine specimen obtained by clean catch procedure / Unknown Non-blood Collection / Unknown 09/16/2024 3:38 PM EDT 09/17/2024 9:01 AM EDT Trorey Kwok MD LAB URINE ORDERABLES Final Resul t Performing Organization Address City/[facility]/ZIP Co de Phone Number [facility] [address] [place] [address], [place] [phone] * Frost urine culture tube (09/16/2024 3:38 PM EDT) Extra Tube Hold for add-ons. 09/17/2024 11:01 AM EDT [facility] Comment:Auto resulted. Urine Urine specimen obtained by clean catch procedure / Unknown Non-blood Collection / Unknown 09/16/2024 3:38 PM EDT 09/17/2024 9:01 AM EDT us Torrey Kwok MD LAB URINE ORDERABLES Final Resul t [facility] [address] [place] [address], [place] [phone] documented in this encounter Visit Diagnoses Diagnosis Hyperglycemia, unspecified Altered mental status, unspecified documented in this encounter Additional Health Concerns Infection Onset Date Last Indicated Resolved Time C. difficile Rule-Out 03/12/2025 03/11/20252024 11:34 AM EST documented as of this encounter Care Teams Edge Trimming Machine Operator Relationship Specialty Start Date End Date Torrey Kwok MD [address] [place] [address] [address] [place] [address] PCP - General Geriatric Medicine 04/25/24 documented as of this encounter
--- OUTSIDE RECORDS SUMMARY | 2025-04-03 22:05 | XMS_ITS | Encounter Summary ---
Author Organization [facility] Address [address] [place] [phone] Care Team Providers Care Parking Manager Name Role Phone Torrey Kwok MD Primary Care Provider [phone] Encounter Details Date Type Department Care Team (Late st Contact Info) Description 11/28/[address] [facility] - Main Lab [address] [facility] [place] [address] Torrey Kwok MD [address] [place], [place] [phone] Type 2 diabetes mellitus with diabetic chronic [...] documented as of this encounter Care Teams Parking Manager Relationship Specialty Start Date End Date Torrey Kwok MD [address] [place] [address] [address] [place] [address] PCP - General Geriatric Medicine 04/25/24 documented as of this encounter
--- OUTSIDE RECORDS SUMMARY | 2025-04-03 22:05 | XMS_ITS | Encounter Summary ---
Author Organization [facility] Address [address] [place] [phone] Care Team Providers Care Furnace Firer Name Role Phone Torrey Kwok MD Primary Care Provider [phone] Encounter Details Date Type Department Care Team (Late st Contact Info) Description 12/05/2024 Lab Requisition [facility] - Main Lab [address] 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 ([facility] V24, [facility] V28) documented in this encounter Results * (ABNORMAL) Complete blood count (12/09/2024 5:54 AM EDT) [facility] WBC 6.2 4.8 - 10.8 K/mcL LAB HEMETOLOGY METHOD 12/09/2024 1:26 PM [facility] RBC 3.60(L) 3.80 - 4.80 M/mcL LAB HEMETOLOGY METHOD 12/09/2024 1:26 PM [facility] Hemoglobin 11.0(L) 11.5 - 16.0 g/dL LAB HEMETOLOGY METHOD 12/09/2024 1:26 PM [facility] Hematocrit 35.0 35.0 - 47.0 % LAB HEMETOLOGY METHOD 12/09/2024 1:26 PM [facility] MCV 98.6(H) 79.0 - 98.0 FL LAB HEMETOLOGY METHOD 12/09/2024 1:26 PM [facility] MCH 31.0 27.0 - 32.0 pcg LAB HEMETOLOGY METHOD 12/09/2024 1:26 PM [facility] MCHC 31.4(L) 32.0 - 37.0 g/dL LAB HEMETOLOGY METHOD 12/09/2024 1:26 PM [facility] RDW 15.5(H) 11.0 - 15.0 % LAB HEMETOLOGY METHOD 12/09/2024 1:26 PM [facility] Platelets 274 130 - 400 K/mcL LAB HEMETOLOGY METHOD 12/09/2024 1:26 PM EDT [facility] MPV 11.0 7.0 - 11.0 FL LAB HEMETOLOGY METHOD 12/09/2024 1:26 PM EDT [facility] NRBC 0.0 <1.0 % LAB HEMETOLOGY METHOD 12/09/2024 1:26 PM EDT [facility] NRBC Absolute 0.00 <0.10 K/mcL LAB HEMETOLOGY METHOD 12/09/2024 1:26 PM EDT [facility] Blood Venous blood specimen / Unknown Venipuncture / Unknown 12/09/2024 5:54 AM EDT 12/09/2024 12:29 PM EDT us Torrey Kwok MD LAB BLOOD ORDERABLES Final Resul t [facility] [address] [place] [address], * (ABNORMAL) Basic metabolic panel (12/09/2024 5:54 AM EDT) Sodium 135 133 - 145 mmol/L LAB CHEMISTRY METHOD 12/09/2024 6:26 PM [facility] Potassium 3.7 3.5 - 5.5 mmol/L LAB CHEMISTRY METHOD 12/09/2024 6:26 PM [facility] Chloride 97 96 - 110 mmol/L LAB CHEMISTRY METHOD 12/09/2024 6:26 PM [facility] CO2 30 21 - 32 mmol/L LAB CHEMISTRY METHOD 12/09/2024 6:26 PM [facility] Anion Gap 8 3 - 11 LAB CHEMISTRY METHOD 12/09/2024 6:26 PM [facility] Glucose 233(H) 70 - 100 mg/dL LAB CHEMISTRY METHOD 12/09/2024 6:26 PM [facility] BUN 31(H) 5 - 25 mg/dL LAB CHEMISTRY METHOD 12/09/2024 6:26 PM EDT [facility] Creatinine 1.23(H) 0.50 - 1.10 mg/dL LAB CHEMISTRY METHOD 12/09/2024 6:26 PM EDT [facility] eGFR 42(L) >=60 mL/min/1. 73m2 LAB CHEMISTRY METHOD 12/09/2024 6:26 PM EDT [facility] Comment:Calculation based on the Chronic Kidney Disease Epidemiology Collaboration (CKD-EPI) equation refit without adjustment for race. BUN/Creatinine Ratio 25.2 LAB CHEMISTRY METHOD 12/09/2024 6:26 PM EDT [facility] Calcium 8.6 8.5 - 10.5 mg/dL LAB CHEMISTRY METHOD 12/09/2024 6:26 PM EDT [facility] Blood Venous blood specimen / Unknown Venipuncture / Unknown 12/09/2024 5:54 AM EDT 12/09/2024 12:30 PM EDT us Torrey Kwok MD LAB BLOOD ORDERABLES Final Resul t [facility] [address] [place] [address], documented in this encounter Visit Diagnoses Diagnosis 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, [facility] V28) Essential (primary) hypertension Unspecified essential hypertension Heart failure, unspecified (CMS/HCC V24, 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 V24, [facility] V28) documented in this encounter Additional Health Concerns Infection Onset Date Last Indicated Resolved Time C. difficile Rule-Out 03/12/2025 03/11/20252024 11:34 AM EST documented as of this encounter Care Teams Furnace Firer Relationship Specialty Start Date End Date Torrey Kwok MD [address] [place] [address] [address] [place] [address] PCP - General Geriatric Medicine 04/25/24 documented as of this encounter
--- OUTSIDE RECORDS SUMMARY | 2025-04-03 22:06 | XMS_ITS | Encounter Summary ---
Author Organization [facility] Address [address] [place] [phone] Care Team Providers Care Window Shade Estimator Name Role Phone Torrey Kwok MD Primary Care Provider [phone] Encounter Details Date Type Department Care Team (Late st Contact Info) Description 10/28/2024 Lab Requisition [facility] - Main Lab 299 [facility] [place] [address] Torrey Kwok MD [address] [place], [place] [phone] Frequency of micturition Social History Tobacco Use [...] micturition Urinary frequency documented in this encounter Additional Health Concerns Infection Onset Date Last Indicated Resolved Time C. difficile Rule-Out 03/12/2025 03/11/20252024 11:34 AM EST documented as of this encounter Care Teams Window Shade Estimator Relationship Specialty Start Date End Date Torrey Kwok MD [address] [place], [place] [phone] PCP - General Geriatric Medicine 04/25/24 documented as of this encounter
--- OUTSIDE RECORDS SUMMARY | 2025-04-03 22:06 | XMS_ITS | Encounter Summary ---
Author Organization [facility] Address [address] [place] [phone] Care Team Providers Care Power Press Operator Name Role Phone Torrey Kwok MD Primary Care Provider [phone] Encounter Details Date Type Department Care Team (Late st Contact Info) Description 07/11/2024 Lab Requisition [facility] - Main Lab 299 [facility] [place] [address] Torrey Kwok MD [address] [place], [place] [phone] Type 2 diabetes mellitus with diabetic chronic [...] documented as of this encounter Care Teams Power Press Operator Relationship Specialty Start Date End Date Torrey Kwok MD [address] [place] [address] [address] [place] [address] PCP - General Geriatric Medicine 04/25/24 documented as of this encounter
--- OUTSIDE RECORDS SUMMARY | 2025-04-03 22:06 | XMS_ITS | Encounter Summary ---
Author Organization [facility] Address [address] [place] [phone] Care Team Providers Care Hooker Up Name Role Phone Torrey Kwok MD Primary Care Provider [phone] Encounter Details Date Type Department Care Team (Late st Contact Info) Description 09/26/[address] [facility] - Main Lab 299 [facility] [place] [address] Torrey Kwok MD [address] [place], [place] [phone] Type 2 diabetes mellitus with diabetic chronic [...] diabetes mellitus with diabetic chronic kidney disease ([facility] [place], [facility] V28) Essential (primary) hypertension Heart failure, unspecified ([facility] V24, [facility] V28) 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 ([facility] V24, [facility] V28) documented in this encounter Results * (ABNORMAL) Complete blood count (09/29/2024 6:25 AM EDT) [facility] WBC 8.8 4.8 - 10.8 K/mcL LAB HEMETOLOGY METHOD 09/29/2024 11:04 AM [facility] RBC 3.60(L) 3.80 - 4.80 M/mcL LAB HEMETOLOGY METHOD 09/29/2024 11:04 AM [facility] Hemoglobin 11.5 11.5 - 16.0 g/dL LAB HEMETOLOGY METHOD 09/29/2024 11:04 AM [facility] Hematocrit 35.3 35.0 - 47.0 % LAB HEMETOLOGY METHOD 09/29/2024 11:04 AM [facility] MCV 97.5 79.0 - 98.0 FL LAB HEMETOLOGY METHOD 09/29/2024 11:04 AM [facility] MCH 31.8 27.0 - 32.0 pcg LAB HEMETOLOGY METHOD 09/29/2024 11:04 AM [facility] MCHC 32.6 32.0 - 37.0 g/dL LAB HEMETOLOGY METHOD 09/29/2024 11:04 AM [facility] RDW 17.8(H) 11.0 - 15.0 % LAB HEMETOLOGY METHOD 09/29/2024 11:04 AM [facility] Platelets 283 130 - 400 K/mcL LAB HEMETOLOGY METHOD 09/29/2024 11:04 AM [facility] MPV 11.2(H) 7.0 - 11.0 FL LAB HEMETOLOGY METHOD 09/29/2024 11:04 AM EDT [facility] NRBC 0.0 <1.0 % LAB HEMETOLOGY METHOD 09/29/2024 11:04 AM EDT [facility] NRBC Absolute 0.00 <0.10 K/mcL LAB HEMETOLOGY METHOD 09/29/2024 11:04 AM EDT [facility] Blood Venous blood specimen / Unknown Venipuncture / Unknown 09/29/2024 6:25 AM EDT 09/29/2024 10:20 AM EDT Torrey Kwok MD LAB BLOOD ORDERABLES Final Resul t [facility] [address] [place] [address], * (ABNORMAL) Basic metabolic panel (09/29/2024 6:25 AM EDT) Sodium 136 133 - 145 mmol/L LAB CHEMISTRY METHOD 09/29/2024 12:10 PM [facility] Potassium 4.0 3.5 - 5.5 mmol/L LAB CHEMISTRY METHOD 09/29/2024 12:10 PM [facility] Chloride 96 96 - 110 mmol/L LAB CHEMISTRY METHOD 09/29/2024 12:10 PM [facility] CO2 29 21 - 32 mmol/L LAB CHEMISTRY METHOD 09/29/2024 12:10 PM [facility] Anion Gap 11 3 - 11 LAB CHEMISTRY METHOD 09/29/2024 12:10 PM [facility] Glucose 316(H) 70 - 100 mg/dL LAB CHEMISTRY METHOD 09/29/2024 12:10 PM [facility] BUN 30(H) 5 - 25 mg/dL LAB CHEMISTRY METHOD 09/29/2024 12:10 PM EDT [facility] Creatinine 1.28(H) 0.50 - 1.10 mg/dL LAB CHEMISTRY METHOD 09/29/2024 12:10 PM EDT [facility] eGFR 40(L) >=60 mL/min/1. 73m2 LAB CHEMISTRY METHOD 09/29/2024 12:10 PM EDT [facility] Comment:Calculation based on the Chronic Kidney Disease Epidemiology Collaboration (CKD-EPI) equation refit without adjustment for race. BUN/Creatinine Ratio 23.4 LAB CHEMISTRY METHOD 09/29/2024 12:10 PM EDT [facility] Calcium 8.7 8.5 - 10.5 mg/dL LAB CHEMISTRY METHOD 09/29/2024 12:10 PM EDT [facility] Blood Venous blood specimen / Unknown Venipuncture / Unknown 09/29/2024 6:25 AM EDT 09/29/2024 10:20 AM EDT us Torrey Kwok MD LAB BLOOD ORDERABLES Final Resul t [facility] [address] [place] [address], documented in this encounter Visit Diagnoses Diagnosis Type 2 diabetes mellitus with diabetic chronic kidney disease ([facility] V24, [facility] V28) Essential (primary) hypertension Unspecified essential hypertension Heart failure, unspecified ([facility] V24, [facility] V28) Heart failure, unspecified 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 difficile Rule-Out 03/12/2025 03/11/20252024 11:34 AM EST documented as of this encounter Care Teams Hooker Up Relationship Specialty Start Date End Date Torrey Kwok MD [address] [place] [address] [address] [place] [address] PCP - General Geriatric Medicine 04/25/24 documented as of this encounter
--- OUTSIDE RECORDS SUMMARY | 2025-04-03 22:06 | XMS_ITS | Encounter Summary ---
Author Organization [facility] Address [address] [place] [phone] Care Team Providers Care Ems Helicopter Pilot Name Role Phone Torrey Kwok MD Primary Care Provider [phone] Encounter Details Date Type Department Care Team (Late st Contact Info) Description 10/25/2024 Lab Requisition [facility] - Main Lab [address] [facility] [place] [address] Torrey Kwok MD [address] [place], [place] [phone] Type 2 diabetes mellitus with diabetic chronic [...] diabetes mellitus with diabetic chronic kidney disease ([facility] V24, [facility] V28) Essential (primary) hypertension Heart failure, unspecified ([facility] V24, [facility] V28) 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 ([facility] V24, [facility] V28) documented in this encounter Results * (ABNORMAL) Complete blood count (10/27/2024 6:16 AM EDT) [facility] WBC 7.0 4.8 - 10.8 K/mcL LAB [...] LAB HEMETOLOGY METHOD 10/27/2024 10:21 AM EDT [facility] MPV 10.8 7.0 - 11.0 FL LAB HEMETOLOGY METHOD 10/27/2024 10:21 AM EDT [facility] NRBC 0.0 <1.0 % LAB HEMETOLOGY METHOD 10/27/2024 10:21 AM EDT [facility] NRBC Absolute 0.00 <0.10 K/mcL LAB HEMETOLOGY METHOD 10/27/2024 10:21 AM EDT [facility] Blood Venous blood specimen / Unknown Venipuncture / Unknown 10/27/2024 6:16 AM EDT 10/27/2024 10:08 AM EDT us Torrey Kwok MD LAB BLOOD ORDERABLES Final Resul t [facility] [address] [place] [address], * (ABNORMAL) Basic metabolic panel (10/27/2024 6:16 [...] LAB CHEMISTRY METHOD 10/27/2024 12:05 PM EDT [facility] Creatinine 1.35(H) 0.50 - 1.10 mg/dL LAB CHEMISTRY METHOD 10/27/2024 12:05 PM EDT [facility] eGFR 38(L) >=60 mL/min/1. 73m2 LAB CHEMISTRY METHOD 10/27/2024 12:05 PM EDT [facility] Comment:Calculation based on the Chronic Kidney Disease Epidemiology Collaboration (CKD-EPI) equation refit without adjustment for race. BUN/Creatinine Ratio 27.4 LAB CHEMISTRY METHOD 10/27/2024 12:05 PM EDT [facility] Calcium 8.6 8.5 - 10.5 mg/dL LAB CHEMISTRY METHOD 10/27/2024 12:05 PM EDT [facility] Blood Venous blood specimen / Unknown Venipuncture / Unknown 10/27/2024 6:16 AM EDT 10/27/2024 10:08 AM EDT Torrey Kwok MD LAB BLOOD ORDERABLES Final Resul t [facility] [address] [place] [address], documented in this encounter Visit Diagnoses Diagnosis [...] documented as of this encounter Care Teams Ems Helicopter Pilot Relationship Specialty Start Date End Date Torrey Kwok MD [address] [place] [address] [address] [place] [address] PCP - General Geriatric Medicine 04/25/24 documented as of this encounter
--- OUTSIDE RECORDS SUMMARY | 2025-04-03 22:06 | XMS_ITS | Encounter Summary ---
Author Organization [facility] Address [address] [place] [phone] Care Team Providers Care Parking Patroller Name Role Phone Torrey Kwok MD Primary Care Provider [phone] Encounter Details Date Type Department Care Team (Late st Contact Info) Description 02/06/2025 Lab Requisition [facility] - Main Lab 299 [facility] [place] [address] Torrey Kwok MD [address] [place], [place] [id number] Type 2 diabetes mellitus with diabetic chronic [...] diabetic retinopathy with macular edema (CMS/HCC V24, CMS/[facility] V28) Hypothyroidism, unspecified FREE THYROXINE WITH REFLEX [...] LAB CHEMISTRY METHOD 02/09/2025 4:13 PM EST [facility] Blood Venous blood specimen / Unknown Venipuncture / Unknown 02/09/2025 5:08 AM EST 02/09/2025 10:54 AM EST us Torrey Kwok MD LAB BLOOD ORDERABLES Final Resul t Performing Organization Address City/[facility]/ZIP Co de Phone Number [facility] [address] [place] [address], [place] [phone] * Free thyroxine with reflex to free triiodothyronine (02/09/2025 5:08 AM EST) Free T4 1.23 0.70 - 1.80 ng/dL LAB CHEMISTRY METHOD 02/09/2025 2:42 PM EST [facility] Blood Venous blood specimen / Unknown Venipuncture / Unknown 02/09/2025 5:08 AM EST 02/09/2025 10:54 AM EST us Torrey Kwok MD LAB BLOOD ORDERABLES Final Resul t Performing Organization Address [facility] Co de Phone Number [facility] [address] [place] [address], [place] [phone] * (ABNORMAL) Thyroid stimulating hormone with reflex to free t4 and free t3 (02/09/2025 5:08 AM EST) TSH 14.02(H) 0.40 - 4.00 mcIU/mL LAB CHEMISTRY METHOD 02/09/2025 2:06 PM EST [facility] Blood Venous blood specimen / Unknown Venipuncture / Unknown 02/09/2025 5:08 AM EST 02/09/2025 10:54 AM EST us Torrey Kwok MD LAB BLOOD ORDERABLES Final Resul t Performing Organization Address City/[facility]/ZIP Co de Phone Number [facility] [address] [place] [address], [place] [phone] * (ABNORMAL) Complete blood count (02/09/2025 5:08 AM EST) [facility] WBC 6.8 4.8 - 10.8 K/mcL LAB HEMETOLOGY METHOD 02/09/2025 11:44 AM [facility] RBC 3.20(L) 3.80 - 4.80 M/mcL LAB HEMETOLOGY METHOD 02/09/2025 11:44 AM [facility] Hemoglobin 9.7(L) 11.5 - 16.0 g/dL LAB HEMETOLOGY METHOD 02/09/2025 11:44 AM [facility] Hematocrit 30.2(L) 35.0 - 47.0 % LAB HEMETOLOGY METHOD 02/09/2025 11:44 AM [facility] MCV 95.6 79.0 - 98.0 FL LAB HEMETOLOGY METHOD 02/09/2025 11:44 AM [facility] MCH 30.7 27.0 - 32.0 pcg LAB HEMETOLOGY METHOD 02/09/2025 11:44 AM [facility] MCHC 32.1 32.0 - 37.0 g/dL LAB HEMETOLOGY METHOD 02/09/2025 11:44 AM [facility] RDW 16.4(H) 11.0 - 15.0 % LAB HEMETOLOGY METHOD 02/09/2025 11:44 AM [facility] Platelets 265 130 - 400 K/mcL LAB HEMETOLOGY METHOD 02/09/2025 11:44 AM [facility] MPV 11.1(H) 7.0 - 11.0 FL LAB HEMETOLOGY METHOD 02/09/2025 11:44 AM [facility] NRBC 0.0 <1.0 % LAB HEMETOLOGY METHOD 02/09/2025 11:44 AM [facility] NRBC Absolute 0.00 <0.10 K/mcL LAB HEMETOLOGY METHOD 02/09/2025 11:44 AM [facility] Blood Venous blood specimen / Unknown Venipuncture / Unknown 02/09/2025 5:08 AM EST 02/09/2025 10:54 AM EST us Torrey Kwok MD LAB BLOOD ORDERABLES Final Resul t [facility] [address] [place] [address], [place] [phone] * (ABNORMAL) Basic metabolic panel (02/09/2025 5:08 AM EST) Sodium 134 133 - 145 mmol/L LAB CHEMISTRY METHOD 02/09/2025 12:19 PM [facility] Potassium 4.1 3.5 - 5.5 mmol/L LAB CHEMISTRY METHOD 02/09/2025 12:19 PM [facility] Chloride 99 96 - 110 mmol/L LAB CHEMISTRY METHOD 02/09/2025 12:19 PM [facility] CO2 26 21 - 32 mmol/L LAB CHEMISTRY METHOD 02/09/2025 12:19 PM [facility] Anion Gap 9 3 - 11 LAB CHEMISTRY METHOD 02/09/2025 12:19 PM [facility] Glucose 258(H) 70 - 100 mg/dL LAB CHEMISTRY METHOD 02/09/2025 12:19 PM [facility] BUN 40(H) 5 - 25 mg/dL LAB CHEMISTRY METHOD 02/09/2025 12:19 PM [facility] Creatinine 1.63(H) 0.50 - 1.10 mg/dL LAB CHEMISTRY METHOD 02/09/2025 12:19 PM [facility] eGFR 30(L) >=60 mL/min/1. 73m2 LAB CHEMISTRY METHOD 02/09/2025 12:19 PM [facility] Comment:Calculation based on the Chronic Kidney Disease Epidemiology Collaboration (CKD-EPI) equation refit without adjustment for race. BUN/Creatinine Ratio 24.5 LAB CHEMISTRY METHOD 02/09/2025 12:19 PM EST [facility] Calcium 8.3(L) 8.5 - 10.5 mg/dL LAB CHEMISTRY METHOD 02/09/2025 12:19 PM EST [facility] Blood Venous blood specimen / Unknown Venipuncture / Unknown 02/09/2025 5:08 AM EST 02/09/2025 10:54 AM EST Torrey Kwok MD LAB BLOOD ORDERABLES Final Resul t [facility] [address] [place] [address], documented in this encounter Visit Diagnoses Diagnosis Type 2 diabetes mellitus with diabetic chronic kidney disease (CMS/[facility] V24, CMS/[facility] V28) Essential (primary) hypertension Unspecified essential hypertension Heart failure, unspecified (CMS/[facility] V24, CMS/HCC V28) Heart failure, unspecified 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 difficile Rule-Out 03/12/2025 03/11/20252024 11:34 AM EST documented as of this encounter Care Teams Parking Patroller Relationship Specialty Start Date End Date Torrey Kwok MD [address] [place] [address] [address] [place] [address] PCP - General Geriatric Medicine 04/25/24 documented as of this encounter
--- OUTSIDE RECORDS SUMMARY | 2025-04-03 22:06 | XMS_ITS | Encounter Summary ---
Author Organization [facility] Address [address] [place] [phone] Care Team Providers Care Radio Technician Name Role Phone Torrey Kwok MD Primary Care Provider [phone] Encounter Details Date Type Department Care Team (Late st Contact Info) Description 07/18/[address] 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 ([facility] V24, [facility] V28) documented in this encounter Results * (ABNORMAL) Basic metabolic panel (07/21/2024 7:11 AM EDT) Sodium 139 133 - 145 mmol/L LAB CHEMISTRY METHOD 07/21/2024 1:01 PM [facility] Potassium 3.0(L) 3.5 - 5.5 mmol/L LAB CHEMISTRY METHOD 07/21/2024 1:01 PM [facility] Chloride 99 96 - 110 mmol/L LAB CHEMISTRY METHOD 07/21/2024 1:01 PM [facility] CO2 34(H) 21 - 32 mmol/L LAB CHEMISTRY METHOD 07/21/2024 1:01 PM [facility] Anion Gap 6 3 - 11 LAB CHEMISTRY METHOD 07/21/2024 1:01 PM [facility] Glucose 46(L) 70 - 100 mg/dL LAB CHEMISTRY METHOD 07/21/2024 1:01 PM [facility] BUN 33(H) 5 - 25 mg/dL LAB CHEMISTRY METHOD 07/21/2024 1:01 PM [facility] Creatinine 1.06 0.50 - 1.10 mg/dL LAB CHEMISTRY METHOD 07/21/2024 1:01 PM [facility] eGFR 51(L) >=60 mL/min/1. 73m2 LAB CHEMISTRY METHOD 07/21/2024 1:01 PM [facility] Comment:Calculation based on the Chronic Kidney Disease Epidemiology Collaboration (CKD-EPI) equation refit without adjustment for race. BUN/Creatinine Ratio 31.1 LAB CHEMISTRY METHOD 07/21/2024 1:01 PM EDT [facility] Calcium 8.5 8.5 - 10.5 mg/dL LAB CHEMISTRY METHOD 07/21/2024 1:01 PM EDT [facility] Blood Venous blood specimen / Unknown Venipuncture / Unknown 07/21/2024 7:11 AM EDT 07/21/2024 12:26 PM EDT us Torrey Kwok MD LAB BLOOD ORDERABLES Final Resul t [facility] [address] [place] [address], * (ABNORMAL) Complete blood count (07/21/2024 7:11 AM EDT) WBC 7.8 4.8 - 10.8 K/mcL LAB HEMETOLOGY METHOD [facility] RBC 3.30(L) 3.80 - 4.80 M/mcL LAB HEMETOLOGY METHOD 07/21/2024 1:34 PM EDT [facility] Hemoglobin 10.6(L) 11.5 - 16.0 g/dL LAB HEMETOLOGY METHOD 07/21/2024 1:34 PM [facility] Hematocrit 33.4(L) 35.0 - 47.0 % LAB HEMETOLOGY METHOD 07/21/2024 1:34 PM EDT [facility] MCV 100.6(H) 79.0 - 98.0 FL LAB HEMETOLOGY METHOD 07/21/2024 1:34 PM EDT [facility] MCH 31.9 27.0 - 32.0 pcg LAB HEMETOLOGY METHOD 07/21/2024 1:34 PM [facility] MCHC 31.7(L) 32.0 - 37.0 g/dL LAB HEMETOLOGY METHOD 07/21/2024 1:34 PM EDT [facility] RDW 17.4(H) 11.0 - 15.0 % LAB HEMETOLOGY METHOD 07/21/2024 1:34 PM EDT [facility] Platelets 283 130 - 400 K/mcL LAB HEMETOLOGY METHOD 07/21/2024 1:34 PM EDT [facility] MPV 10.9 7.0 - 11.0 FL LAB HEMETOLOGY METHOD 07/21/2024 1:34 PM EDT [facility] NRBC 0.0 <1.0 % LAB HEMETOLOGY METHOD 07/21/2024 1:34 PM EDT [facility] NRBC Absolute 0.00 <0.10 K/mcL LAB HEMETOLOGY METHOD 07/21/2024 1:34 PM EDT [facility] Blood Venous blood specimen / Unknown Venipuncture / Unknown 07/21/2024 7:11 AM EDT 07/21/2024 12:26 PM EDT Torrey Kwok MD LAB BLOOD ORDERABLES Final Resul t [facility] [address] [place] [address], documented in this encounter Visit Diagnoses Diagnosis [...] documented as of this encounter Care Teams Radio Technician Relationship Specialty Start Date End Date Torrey Kwok MD [address] [place] [address] [address] [place] [address] PCP - General Geriatric Medicine 04/25/24 documented as of this encounter
--- OUTSIDE RECORDS SUMMARY | 2025-04-03 22:06 | XMS_ITS | Encounter Summary ---
Author Organization [facility] Address [address] [place] [phone] Care Team Providers Care Paediatric Thoracic Physician Name Role Phone Torrey Kwok MD Primary Care Provider [phone] Encounter Details Date Type Department Care Team (Late st Contact Info) Description 10/17/2024 Lab Requisition [facility] - Main Lab 299 [facility] [place] [address] Torrey Kwok MD [address] [place], [place] [id number] Type 2 diabetes mellitus with diabetic chronic [...] [facility] V24, [facility] V28) Essential (primary) hypertension Heart failure, unspecified ([facility] V24, [facility] V28) 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 Potassium 4.5 3.5 - 5.5 mmol/L LAB CHEMISTRY METHOD 10/20/2024 5:[address] [facility] Chloride 99 96 - 110 mmol/L LAB CHEMISTRY METHOD 10/20/2024 5:[address] [facility] CO2 26 21 - 32 mmol/L LAB CHEMISTRY METHOD 10/20/2024 5:[address] [facility] Anion Gap 10 3 - 11 LAB CHEMISTRY METHOD 10/20/2024 5:[address] [facility] Glucose 339(H) 70 - 100 mg/dL LAB CHEMISTRY METHOD 10/20/2024 5:[address] [facility] BUN 43(H) 5 - 25 mg/dL LAB CHEMISTRY METHOD 10/20/2024 5:[address] [facility] Creatinine 1.48(H) 0.50 - 1.10 mg/dL LAB CHEMISTRY METHOD 10/20/2024 5:[address] [facility] eGFR 34(L) >=60 mL/min/1. 73m2 LAB CHEMISTRY METHOD 10/20/2024 5:[address] [facility] Comment:Calculation based on the Chronic Kidney Disease Epidemiology Collaboration (CKD-EPI) equation refit without adjustment for race. BUN/Creatinine Ratio 29.1 LAB CHEMISTRY METHOD 10/20/2024 5:05 PM EDT [facility] Calcium 8.6 8.5 - 10.5 mg/dL LAB CHEMISTRY METHOD 10/20/2024 5:05 PM EDT [facility] Blood Venous blood specimen / Unknown Venipuncture / Unknown 10/20/2024 5:58 AM EDT 10/20/2024 5:05 PM EDT us Torrey Kwok MD LAB BLOOD ORDERABLES Final Resul t [facility] [address] [place] [address], * (ABNORMAL) Complete blood count (10/20/2024 5:58 AM EDT) WBC 6.8 4.8 - 10.8 K/mcL LAB [facility]OLOGY [facility] RBC 3.20(L) 3.80 - 4.80 M/mcL LAB HEMETOLOGY METHOD 10/20/2024 12:[address] [facility] Hemoglobin 9.9(L) 11.5 - 16.0 g/dL LAB HEMETOLOGY METHOD 10/20/2024 12:[address] [facility] Hematocrit 32.1(L) 35.0 - 47.0 % LAB HEMETOLOGY METHOD 10/20/2024 12:33 PM EDT [facility] MCV 100.0(H) 79.0 - 98.0 FL LAB HEMETOLOGY METHOD [facility]/20[facility]2024 12[facility] MCH 30.8 27.0 - 32.0 pcg LAB HEMETOLOGY METHOD 10/20/2024 12:[address] [facility] MCHC 30.8(L) 32.0 - 37.0 g/dL LAB HEMETOLOGY METHOD 10/20/2024 12:33 PM EDT [facility] RDW 18.8(H) 11.0 - 15.0 % LAB HEMETOLOGY METHOD 10/20/2024 12:33 PM EDT [facility] Platelets 289 130 - 400 K/mcL LAB HEMETOLOGY METHOD 10/20/2024 12:33 PM EDT [facility] MPV 11.0 7.0 - 11.0 FL LAB HEMETOLOGY METHOD 10/20/2024 12:33 PM EDT [facility] NRBC 0.0 <1.0 % LAB HEMETOLOGY METHOD 10/20/2024 12:33 PM EDT [facility] NRBC Absolute 0.00 <0.10 K/mcL LAB HEMETOLOGY METHOD 10/20/2024 12:33 PM EDT [facility] Blood Venous blood specimen / Unknown Venipuncture / Unknown 10/20/2024 5:58 AM EDT 10/20/2024 11:44 AM EDT Torrey Kwok MD LAB BLOOD ORDERABLES Final Resul t [facility] [address] [place] [address], documented in this encounter Visit Diagnoses Diagnosis [...] documented as of this encounter Care Teams Paediatric Thoracic Physician Relationship Specialty Start Date End Date Torrey Kwok MD [address] [facility] [address] [place] [address] PCP - General Geriatric Medicine 04/25/24 documented as of this encounter
--- OUTSIDE RECORDS SUMMARY | 2025-04-03 22:06 | XMS_ITS | Encounter Summary ---
Author Organization [facility] Address [address] [place] [phone] Care Team Providers Care Neighborhood Worker Name Role Phone Torrey Kwok MD Primary Care Provider [phone] Encounter Details Date Type Department Care Team (Late st Contact Info) Description 10/09/2024 Lab Requisition [facility] - Main Lab 299 [facility] [place] [address] Torrey Kwok MD [address] [place], [place] [phone] Type 2 diabetes mellitus with diabetic chronic [...] diabetes mellitus with diabetic chronic kidney disease ([facility] V24, [facility] V28) Essential (primary) hypertension Heart failure, unspecified ([facility] V24, [facility] V28) 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 ([facility] V24, [facility] V28) documented in this encounter Results * (ABNORMAL) Basic metabolic panel (10/13/2024 4:57 AM EDT) Sodium 137 133 - 145 mmol/L LAB CHEMISTRY METHOD 10/13/2024 7:19 AM [facility] Potassium 4.2 3.5 - 5.5 mmol/L LAB CHEMISTRY METHOD 10/13/2024 7:19 AM [facility] Chloride 100 96 - 110 mmol/L LAB CHEMISTRY METHOD 10/13/2024 7:19 AM [facility] CO2 33(H) 21 - 32 mmol/L LAB CHEMISTRY METHOD 10/13/2024 7:19 AM [facility] Anion Gap 4 3 - 11 LAB CHEMISTRY METHOD 10/13/2024 7:19 AM [facility] Glucose 261(H) 70 - 100 mg/dL LAB CHEMISTRY METHOD 10/13/2024 7:19 AM [facility] BUN 39(H) 5 - 25 mg/dL LAB CHEMISTRY METHOD 10/13/2024 7:19 AM [facility] Creatinine 1.29(H) 0.50 - 1.10 mg/dL LAB CHEMISTRY METHOD 10/13/2024 7:19 AM [facility] eGFR 40(L) >=60 mL/min/1. 73m2 LAB CHEMISTRY METHOD 10/13/2024 7:19 AM [facility] Comment:Calculation based on the Chronic Kidney Disease Epidemiology Collaboration (CKD-EPI) equation refit without adjustment for race. BUN/Creatinine Ratio 30.2 LAB CHEMISTRY METHOD 10/13/2024 7:19 AM EDT [facility] Calcium 9.2 8.5 - 10.5 mg/dL LAB CHEMISTRY METHOD 10/13/2024 7:19 AM [facility] Blood Venous blood specimen / Unknown Venipuncture / Unknown 10/13/2024 4:57 AM EDT 10/13/2024 5:56 AM EDT us Torrey Kwok MD LAB BLOOD ORDERABLES Final Resul t [facility] [address] [place] [address], * (ABNORMAL) Complete blood count (10/13/2024 4:57 AM EDT) WBC 5.0 4.8 - 10.8 K/mcL LAB HEMETOLOGY METHOD 10/13/2024 6:04 AM [facility] RBC 3.00(L) 3.80 - 4.80 M/mcL LAB HEMETOLOGY METHOD 10/13/2024 6:04 AM [facility] Hemoglobin 9.6(L) 11.5 - 16.0 g/dL LAB HEMETOLOGY METHOD 10/13/2024 6:04 AM [facility] Hematocrit 30.1(L) 35.0 - 47.0 % LAB HEMETOLOGY METHOD 10/13/2024 6:04 AM [facility] MCV 99.3(H) 79.0 - 98.0 FL LAB HEMETOLOGY METHOD 10/13/2024 6:04 AM [facility] MCH 31.7 27.0 - 32.0 pcg LAB HEMETOLOGY METHOD 10/13/2024 6:04 AM [facility] MCHC 31.9(L) 32.0 - 37.0 g/dL LAB HEMETOLOGY METHOD 10/13/2024 6:04 AM EDT [facility] RDW 18.7(H) 11.0 - 15.0 % LAB HEMETOLOGY METHOD 10/13/2024 6:04 AM EDT [facility] Platelets 307 130 - 400 K/mcL LAB HEMETOLOGY METHOD 10/13/2024 6:04 AM EDT [facility] MPV 10.8 7.0 - 11.0 FL LAB HEMETOLOGY METHOD 10/13/2024 6:04 AM EDT [facility] NRBC 0.0 <1.0 % LAB HEMETOLOGY METHOD 10/13/2024 6:04 AM EDT [facility] NRBC Absolute 0.00 <0.10 K/mcL LAB HEMETOLOGY METHOD 10/13/2024 6:04 AM EDT [facility] Blood Venous blood specimen / Unknown Venipuncture / Unknown 10/13/2024 4:57 AM EDT 10/13/2024 5:57 AM EDT Torrey Kwok MD LAB BLOOD ORDERABLES Final Resul t [facility] [address] [place] [address], documented in this encounter Visit Diagnoses Diagnosis [...] documented as of this encounter Care Teams Neighborhood Worker Relationship Specialty Start Date End Date Torrey Kwok MD [address] [place] [address] [address] [place] [address] PCP - General Geriatric Medicine 04/25/24 documented as of this encounter
--- OUTSIDE RECORDS SUMMARY | 2025-04-03 22:06 | XMS_ITS | Encounter Summary ---
Author Organization [facility] Address [address] [place] [phone] Care Team Providers Care Vacuum Form Operator Name Role Phone Torrey Kwok MD Primary Care Provider [phone] Encounter Details Date Type Department Care Team (Late st Contact Info) Description 11/14/2024 Lab Requisition [facility] - Main Lab 299 [facility] [place] [address] Torrey Kwok MD [address] [place], [place] [phone] Type 2 diabetes mellitus with diabetic chronic [...] diabetes mellitus with diabetic chronic kidney disease ([facility] V24, [facility] V28) Essential (primary) hypertension Heart failure, unspecified ([facility] V24, [facility] V28) 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 ([facility] V24, [facility] V28) documented in this encounter Results * (ABNORMAL) Complete blood count (11/17/2024 8:27 AM EDT) [facility] WBC 8.8 4.8 - 10.8 K/mcL LAB HEMETOLOGY METHOD 11/17[facility]24 [facility] RBC 3.30(L) 3.80 - 4.80 M/mcL LAB HEMETOLOGY METHOD 11/17/2024 1:[address] [facility] Hemoglobin 10.4(L) 11.5 - 16.0 g/dL LAB HEMETOLOGY METHOD 11/17/2024 1:[address] [facility] Hematocrit 32.9(L) 35.0 - 47.0 % LAB HEMETOLOGY METHOD 11/17/2024 1:[address] [facility] MCV 100.0(H) 79.0 - 98.0 FL LAB HEMETOLOGY METHOD 11/17/2024 1:[address] [facility] MCH 31.6 27.0 - 32.0 pcg LAB HEMETOLOGY METHOD 11/17/2024 1:[address] [facility] MCHC 31.6(L) 32.0 - 37.0 g/dL LAB HEMETOLOGY METHOD 11/17/2024 1:[address] [facility] RDW 17.9(H) 11.0 - 15.0 % LAB HEMETOLOGY METHOD 11/17/2024 1:[address] [facility] Platelets 314 130 - 400 K/mcL LAB HEMETOLOGY METHOD 11/17/2024 1:17 PM EDT [facility] MPV 10.8 7.0 - 11.0 FL LAB HEMETOLOGY METHOD 11/17/2024 1:17 PM EDT [facility] NRBC 0.0 <1.0 % LAB HEMETOLOGY METHOD 11/17/2024 1:17 PM EDT [facility] NRBC Absolute 0.00 <0.10 K/mcL LAB HEMETOLOGY METHOD 11/17/2024 1:17 PM EDT [facility] Blood Venous blood specimen / Unknown Venipuncture / Unknown 11/17/2024 8:27 AM EDT 11/17/2024 11:57 AM EDT us Torrey Kwok MD LAB BLOOD ORDERABLES Final Resul t [facility] [address] [place] [address], * (ABNORMAL) Basic metabolic panel (11/17/2024 8:27 AM EDT) Sodium 135 133 - 145 mmol/L LAB CHEMISTRY METHOD 11/17/2024 1:[address] [facility] Potassium 4.1 3.5 - 5.5 mmol/L LAB CHEMISTRY METHOD 11/17/2024 1:[address] [facility] Chloride 99 96 - 110 mmol/L LAB CHEMISTRY METHOD 11/17/2024 1:[address] [facility] CO2 26 21 - 32 mmol/L LAB CHEMISTRY METHOD 11/17/2024 1:[address] [facility] Anion Gap 10 3 - 11 LAB CHEMISTRY METHOD 11/17/2024 1:[address] [facility] Glucose 146(H) 70 - 100 mg/dL LAB CHEMISTRY METHOD 11/17/2024 1:[address] [facility] BUN 42(H) 5 - 25 mg/dL LAB CHEMISTRY METHOD 11/17/2024 1:03 PM EDT [facility] Creatinine 1.42(H) 0.50 - 1.10 mg/dL LAB CHEMISTRY METHOD 11/17/2024 1:03 PM EDT [facility] eGFR 36(L) >=60 mL/min/1. 73m2 LAB CHEMISTRY METHOD 11/17/2024 1:03 PM EDT [facility] Comment:Calculation based on the Chronic Kidney Disease Epidemiology Collaboration (CKD-EPI) equation refit without adjustment for race. BUN/Creatinine Ratio 29.6 LAB CHEMISTRY METHOD 11/17/2024 1:03 PM EDT [facility] Calcium 9.1 8.5 - 10.5 mg/dL LAB CHEMISTRY METHOD 11/17/2024 1:03 PM EDT [facility] Blood Venous blood specimen / Unknown Venipuncture / Unknown 11/17/2024 8:27 AM EDT 11/17/2024 11:57 AM EDT Torrey Kwok MD LAB BLOOD ORDERABLES Final Resul t [facility] [address] [place] [address], documented in this encounter Visit Diagnoses Diagnosis [...] documented as of this encounter Care Teams Vacuum Form Operator Relationship Specialty Start Date End Date Torrey Kwok MD [address] [place] [id number] [address] [place] [address] PCP - General Geriatric Medicine 04/25/24 documented as of this encounter
--- OUTSIDE RECORDS SUMMARY | 2025-04-03 22:06 | XMS_ITS | Encounter Summary ---
Author Organization [facility] Address [address] [place] [address] Care Team Providers Care Retail Sales Manager Name Role Phone Torrey Kwok MD Primary Care Provider [phone] Encounter Details Date Type Department Care Team (Late st Contact Info) Description 07/12/2024 Lab Requisition [facility] - Main Lab [address] [place] [address] Torrey Kwok MD [address] [place] [address] Acute cough Social History Tobacco Use Types [...] Procedure Name Priority Date/Time Associated Diagnosis Comments [id number], RSV, FLU A AND B QUALITATIVE RT-PCR, LOCAL REFERENCE LAB Routine 07/11/2024 1:00 PM EDT Acute cough documented in this encounter Results * [id number], RSV, Influenza A and B qualitative RT-PCR (07/11/2024 1:00 PM EDT) SARS COV-2 Not Detected Not Detected LAB MOLECULAR DIAGNOSTICS METHOD 07/12/2024 11:25 AM EDT [facility] ([facility]) [facility] Comment: Disclaimer: The manner in which this information is used to guide patient care is the responsibility of the healthcare provider. Testing was performed using the Hopscotch SARS-CoV-2 test. This test has been authorized [...] for Healthcare Providers can be found at: https://www.fda.gov/media/966565/download Fact sheet for Patients can be found at: https://www.fda.gov/media/809517/download Influenza A PCR Not Detected Not Detected LAB MOLECULAR DIAGNOSTICS METHOD 07/12/2024 11:25 AM EDT [facility] Influenza B PCR Not Detected Not Detected LAB MOLECULAR DIAGNOSTICS METHOD 07/12/2024 11:25 AM EDT [facility] RSV PCR Not Detected Not Detected LAB MOLECULAR DIAGNOSTICS METHOD 07/12/2024 11:25 AM EDT [facility] Swab Nasopharyngeal structure / Unknown Non-blood Collection / Unknown 07/11/2024 1:00 PM EDT 07/12/2024 8:28 AM EDT Torrey Kwok MD LAB MICROBIOLOGY - GENERAL ORDER GENET Final Result [facility] [address] [place] [address], documented in this encounter Visit Diagnoses Diagnosis Acute cough documented in this encounter Additional Health Concerns Infection Onset Date Last Indicated Resolved Time Respiratory Rule-Out 07/12/2024 07/11/2024 025 11:25 AM EDT C. difficile Rule-Out 03/12/2025 03/11/20252024 11:34 AM EST documented as of this encounter Care Teams Retail Sales Manager Relationship Specialty Start Date End Date Torrey Kwok MD [address] [place] [address] [address] [place] [address] PCP - General Geriatric Medicine 04/25/24 documented as of this encounter
--- OUTSIDE RECORDS SUMMARY | 2025-04-03 22:06 | XMS_ITS | Encounter Summary ---
Author Organization [facility] Address [address] [place] [phone] Care Team Providers Care Intervention Nurse Name Role Phone Torrey Kwok MD Primary Care Provider [phone] Encounter Details Date Type Department Care Team (Late st Contact Info) Description 10/28/[address] [facility] - Main Lab [address] [facility] [address] [place] [address] Torrey Kwok MD [address] [place], [place] [id number] Frequency of micturition Social History Tobacco Use [...] if clinically indicated. 10/29/2024 9:54 AM [facility] Urine Urine specimen obtained by clean catch procedure / Unknown 10/28/2024 10/28/2024 10:52 AM EDT Torrey Kwok MD LAB MICROBIOLOGY - GENERAL ORDER GENET Final Result [facility] [address] [place] [address], [place] [phone] * (ABNORMAL) Urinalysis with reflex microscopic and culture (10/28/2024 12:00 AM EDT) [facility] Specific [place] Urine 1.013 1.003 - 1.030 LAB URINALYSIS - AUTOMATED METHOD 10/28/2024 10:52 AM [facility] pH, Urine 5.5 5.0 - 8.0 pH LAB URINALYSIS - AUTOMATED METHOD 10/28/2024 10:52 AM [facility] Leukocytes, Urine Large(A) Negative LAB URINALYSIS - AUTOMATED METHOD 10/28/2024 10:52 AM [facility] Nitrite, Urine Negative Negative LAB URINALYSIS - AUTOMATED METHOD 10/28/2024 10:52 AM [facility] Protein, Urine Trace <=Trace mg/dL LAB URINALYSIS - AUTOMATED METHOD 10/28/2024 10:52 AM [facility] Glucose, Urine Negative Negative mg/dL LAB URINALYSIS - AUTOMATED METHOD 10/28/2024 10:52 AM [facility] Ketones, Urine Negative Negative mg/dL LAB URINALYSIS - AUTOMATED METHOD 10/28/2024 10:52 AM [facility] Urobilinogen, Urine 0.2 0.2 - 1.0 mg/dL LAB URINALYSIS - AUTOMATED METHOD 10/28/2024 10:52 AM [facility] Bilirubin, Urine Negative Negative LAB URINALYSIS - AUTOMATED METHOD 10/28/2024 10:52 AM [facility] Blood, Urine Negative Negative LAB URINALYSIS - AUTOMATED METHOD 10/28/2024 10:52 AM [facility] RBC, Urine 3.2 0 - 4 /HPF LAB URINALYSIS - AUTOMATED METHOD 10/28/2024 10:52 AM [facility] WBC, Urine 43.0(H) 0 - 4 /HPF LAB URINALYSIS - AUTOMATED METHOD 10/28/2024 10:52 AM [facility] Squamous Epithelial, Urine 57 0 - 60 /LPF LAB URINALYSIS - AUTOMATED METHOD 10/28/2024 10:52 AM [facility] Bacteria, Urine Negative Negative /HPF LAB URINALYSIS - AUTOMATED METHOD 10/28/2024 10:52 AM [facility] Hyaline Casts, Urine 0.4 0 - 3 /LPF LAB URINALYSIS - AUTOMATED METHOD 10/28/2024 10:52 AM [facility] Urine Urine specimen obtained by clean catch procedure / Unknown 10/28/2024 10/28/2024 10:32 AM EDT us Torrey Kwok MD LAB URINE ORDERABLES Final Resul t [facility] [address] [place] [address], * Frost urine culture tube (10/28/2024 12:00 AM EDT) Extra Tube Hold for add-ons. [facility]:Auto resulted. Urine Urine specimen obtained by clean catch procedure / Unknown Non-blood Collection / Unknown 10/28/2024 10/28/2024 10:25 AM EDT Torrey Kwok MD LAB URINE ORDERABLES Final Resul t [facility] ([facility]) [facility] [address] [place] [address], documented in this encounter Visit Diagnoses Diagnosis Frequency of micturition Urinary frequency documented in this encounter Additional Health Concerns Infection Onset Date Last Indicated Resolved Time C. difficile Rule-Out 03/12/2025 03/11/20252024 11:34 AM EST documented as of this encounter Care Teams Intervention Nurse Relationship Specialty Start Date End Date Torrey Kwok MD [address] [place] [address] [address] [place] [address] PCP - General Geriatric Medicine 04/25/24 documented as of this encounter
--- OUTSIDE RECORDS SUMMARY | 2025-04-03 22:06 | XMS_ITS | Encounter Summary ---
Author Organization [facility] Address [address] [place] [address] Care Team Providers Care Securities Attorney Name Role Phone Torrey Kwok MD Primary Care Provider [phone] Encounter Details Date Type Department Care Team (Late st Contact Info) Description 11/01/2024 Lab Requisition [facility] - Main Lab [address] [facility] [place] [address] Torrey Kwok MD [address] [place], [place] [phone] Type 2 diabetes mellitus with diabetic chronic [...] diabetes mellitus with diabetic chronic kidney disease ([facility] V24, [facility] V28) Essential (primary) hypertension Heart failure, unspecified ([facility] V24, [facility] V28) Type 2 diabetes mellitus with unspecified diabetic retinopathy without macular edema ([facility] V24, [facility] V28) documented in this encounter Results * (ABNORMAL) Basic metabolic panel (11/03/2024 5:57 AM EDT) Sodium 135 133 - 145 mmol/L LAB CHEMISTRY METHOD 11/03/2024 11:32 AM [facility] Potassium 4.1 3.5 - 5.5 mmol/L LAB CHEMISTRY METHOD 11/03/2024 11:32 AM [facility] Chloride 99 96 - 110 mmol/L LAB CHEMISTRY METHOD 11/03/2024 11:32 AM [facility] CO2 28 21 - 32 mmol/L LAB CHEMISTRY METHOD 11/03/2024 11:32 AM [facility] Anion Gap 8 3 - 11 LAB CHEMISTRY METHOD 11/03/2024 11:32 AM [facility] Glucose 150(H) 70 - 100 mg/dL LAB CHEMISTRY METHOD 11/03/2024 11:32 AM [facility] BUN 35(H) 5 - 25 mg/dL LAB CHEMISTRY METHOD 11/03/2024 11:32 AM [facility] Creatinine 1.19(H) 0.50 - 1.10 mg/dL LAB CHEMISTRY METHOD 11/03/2024 11:32 AM [facility] eGFR 44(L) >=60 mL/min/1. 73m2 LAB CHEMISTRY METHOD 11/03/2024 11:32 AM [facility] Comment:Calculation based on the Chronic Kidney Disease Epidemiology Collaboration (CKD-EPI) equation refit without adjustment for race. BUN/Creatinine Ratio 29.4 LAB CHEMISTRY METHOD 11/03/2024 11:32 AM EDT [facility] Calcium 9.1 8.5 - 10.5 mg/dL LAB CHEMISTRY METHOD 11/03/2024 11:32 AM T [facility] Blood Venous blood specimen / Unknown 11/03/2024 5:57 AM EDT 11/03/2024 10:16 AM EDT us Torrey Kwok MD LAB BLOOD ORDERABLES Final Resul t [facility] [address] [place] [address], * (ABNORMAL) Complete blood count (11/03/2024 5:57 AM EDT) WBC 7.6 4.8 - 10.8 K/mcL LAB HEMETOLOGY METHOD 11/03/2024 11:26 AM [facility] RBC 3.20(L) 3.80 - 4.80 M/mcL LAB HEMETOLOGY METHOD 11/03/2024 11:26 AM [facility] Hemoglobin 10.0(L) 11.5 - 16.0 g/dL LAB HEMETOLOGY METHOD 11/03/2024 11:26 AM [facility] Hematocrit 31.0(L) 35.0 - 47.0 % LAB HEMETOLOGY METHOD 11/03/2024 11:26 AM [facility] MCV 97.8 79.0 - 98.0 FL LAB HEMETOLOGY METHOD 11/03/2024 11:26 AM [facility] MCH 31.5 27.0 - 32.0 pcg LAB HEMETOLOGY METHOD 11/03/2024 11:26 AM [facility] MCHC 32.3 32.0 - 37.0 g/dL LAB HEMETOLOGY METHOD 11/03/2024 11:26 AM [facility] RDW 18.5(H) 11.0 - 15.0 % LAB HEMETOLOGY METHOD 11/03/2024 11:26 AM EDT [facility] Platelets 279 130 - 400 K/mcL LAB HEMETOLOGY METHOD 11/03/2024 11:26 AM EDT [facility] MPV 10.7 7.0 - 11.0 FL LAB HEMETOLOGY METHOD 11/03/2024 11:26 AM EDT [facility] NRBC 0.0 <1.0 % LAB HEMETOLOGY METHOD 11/03/2024 11:26 AM EDT [facility] NRBC Absolute 0.00 <0.10 K/mcL LAB HEMETOLOGY METHOD 11/03/2024 11:26 AM EDT [facility] Blood Venous blood specimen / Unknown Venipuncture / Unknown 11/03/2024 5:57 AM EDT 11/03/2024 10:16 AM EDT Torrey Kwok MD LAB BLOOD ORDERABLES Final Resul t [facility] [address] [place] [address], documented in this encounter Visit Diagnoses Diagnosis Type 2 diabetes mellitus with diabetic chronic kidney disease ([facility] V24, [facility] V28) Essential (primary) hypertension Unspecified essential hypertension Heart failure, unspecified ([facility] V24, [facility] V28) Heart failure, unspecified Type 2 diabetes mellitus with unspecified diabetic retinopathy without macular edema ([facility] V24, [facility] V28) documented in this encounter Additional Health Concerns Infection Onset Date Last Indicated Resolved Time C. difficile Rule-Out 03/12/2025 03/11/20252024 11:34 AM EST documented as of this encounter Care Teams Securities Attorney Relationship Specialty Start Date End Date Torrey Kwok MD [address] [place] [address] [address] [place] [address] PCP - General Geriatric Medicine 04/25/24 documented as of this encounter
--- OUTSIDE RECORDS SUMMARY | 2025-04-03 22:06 | XMS_ITS | Encounter Summary ---
Author Organization [facility] Address [address] [place] [phone] Care Team Providers Care Pediatric Dentist Name Role Phone Torrey Kwok MD Primary Care Provider [phone] Encounter Details Date Type Department Care Team (Late st Contact Info) Description 02/02/2025 Lab Requisition [facility] - Main Lab [address] [facility] [place] [address] Torrey Kwok MD [address] [place], [place] [phone] Type 2 diabetes mellitus with [...] mmol/L LAB CHEMISTRY METHOD 02/03/2025 10:44 AM [facility] Potassium 4.1 3.5 - 5.5 mmol/L LAB CHEMISTRY METHOD 02/03/2025 10:44 AM [facility] Chloride 97 96 - 110 mmol/L LAB CHEMISTRY METHOD 02/03/2025 10:44 AM [facility] CO2 32 21 - 32 mmol/L LAB CHEMISTRY METHOD 02/03/2025 10:44 AM [facility] Anion Gap 5 3 - 11 LAB CHEMISTRY METHOD 02/03/2025 10:44 AM [facility] Glucose 182(H) 70 - 100 mg/dL LAB CHEMISTRY METHOD 02/03/2025 10:44 AM [facility] BUN 45(H) 5 - 25 mg/dL LAB CHEMISTRY METHOD 02/03/2025 10:44 AM [facility] Creatinine 1.33(H) 0.50 - 1.10 mg/dL LAB CHEMISTRY METHOD 02/03/2025 10:44 AM [facility] eGFR 39(L) >=60 mL/min/1. 73m2 LAB CHEMISTRY METHOD 02/03/2025 10:44 AM [facility] Comment:Calculation based on the Chronic Kidney Disease Epidemiology Collaboration (CKD-EPI) equation refit without adjustment for race. BUN/Creatinine Ratio 33.8 LAB CHEMISTRY METHOD 02/03/2025 10:44 AM [facility] Calcium 9.1 8.5 - 10.5 mg/dL LAB CHEMISTRY METHOD 02/03/2025 10:44 AM [facility] Blood Venous blood specimen / Unknown Venipuncture / Unknown 02/03/2025 8:05 AM EDT 02/03/2025 10:02 AM EDT us Torrey Kwok MD LAB BLOOD ORDERABLES Final Resul t [facility] ([facility]) [facility] [address] [place] [address], documented in this encounter Visit Diagnoses Diagnosis Type 2 diabetes mellitus with diabetic chronic kidney disease ([facility] V24, [facility] V28) Essential (primary) hypertension Unspecified essential hypertension Heart failure, unspecified ([facility] V24, [facility] V28) Heart failure, unspecified 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 difficile Rule-Out 03/12/2025 03/11/20252024 11:34 AM EST documented as of this encounter Care Teams Pediatric Dentist Relationship Specialty Start Date End Date Torrey Kwok MD [address] [place] [address] [address] [place] [address] PCP - General Geriatric Medicine 04/25/24 documented as of this encounter
--- OUTSIDE RECORDS SUMMARY | 2025-04-03 22:06 | XMS_ITS | Encounter Summary ---
Author Organization [facility] Address [address] [place] [phone] Care Team Providers Care Crm Marketing Executive Name Role Phone Torrey Kwok MD Primary Care Provider [phone] Encounter Details Date Type Department Care Team (Late st Contact Info) Description 10/28/[address] [facility] - Main Lab [address] [facility] [place] [address] Social History Tobacco Use Types [...] documented as of this encounter Care Teams Crm Marketing Executive Relationship Specialty Start Date End Date Torrey Kwok MD [address] [place] [address] PCP - General Geriatric Medicine 04/25/24 documented as of this encounter
--- OUTSIDE RECORDS SUMMARY | 2025-04-03 22:06 | XMS_ITS | Encounter Summary ---
Author Organization [facility] Address [address] [place] [phone] Care Team Providers Care Gasateria Attendant Name Role Phone Torrey Kwok MD Primary Care Provider [phone] Encounter Details Date Type Department Care Team (Late st Contact Info) Description 01/30/2025 Lab Requisition [facility] - Main Lab 299 [facility] [place] [address] Torrey Kwok MD [address] [place], [place] [phone] Type 2 diabetes mellitus with diabetic chronic [...] Complete blood count (02/02/2025 4:47 AM EDT) [facility] WBC 9.0 4.8 - 10.8 K/mcL LAB HEMETOLOGY METHOD 02/02/2025 10:02 AM [facility] RBC 4.20 3.80 - 4.80 M/mcL LAB HEMETOLOGY METHOD 02/02/2025 10:02 AM [facility] Hemoglobin 13.0 11.5 - 16.0 g/dL LAB HEMETOLOGY METHOD 02/02/2025 10:02 AM [facility] Hematocrit 42.2 35.0 - 47.0 % LAB HEMETOLOGY METHOD 02/02/2025 10:02 AM [facility] MCV 100.2(H) 79.0 - 98.0 FL LAB HEMETOLOGY METHOD 02/02/2025 10:02 AM [facility] MCH 30.9 27.0 - 32.0 pcg LAB HEMETOLOGY METHOD 02/02/2025 10:02 AM [facility] MCHC 30.8(L) 32.0 - 37.0 g/dL LAB HEMETOLOGY METHOD 02/02/2025 10:02 AM [facility] RDW 16.9(H) 11.0 - 15.0 % LAB HEMETOLOGY METHOD 02/02/2025 10:02 AM [facility] Platelets 269 130 - 400 K/mcL LAB HEMETOLOGY METHOD 02/02/2025 10:02 AM [facility] MPV 11.2(H) 7.0 - 11.0 FL LAB HEMETOLOGY METHOD 02/02/2025 10:02 AM [facility] NRBC 0.0 <1.0 % LAB HEMETOLOGY METHOD 02/02/2025 10:02 AM [facility] NRBC Absolute 0.00 <0.10 K/mcL LAB HEMETOLOGY METHOD 02/02/2025 10:02 AM EDT [facility] Blood Venous blood specimen / Unknown Venipuncture / Unknown 02/02/2025 4:47 AM EDT 02/02/2025 9:30 AM EDT Torrey Kwok MD LAB BLOOD ORDERABLES Final Resul t [facility] [address] [place] [address], documented in this encounter Visit Diagnoses Diagnosis Type 2 diabetes mellitus with diabetic chronic kidney disease ([facility] V24, [facility] V28) Essential (primary) hypertension Unspecified essential hypertension Heart failure, unspecified ([facility] V24, 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 V24, [facility] V28) documented in this encounter Additional Health Concerns Infection Onset Date Last Indicated Resolved Time C. difficile Rule-Out 03/12/2025 03/11/20252024 11:34 AM EST documented as of this encounter Care Teams Gasateria Attendant Relationship Specialty Start Date End Date Torrey Kwok MD [address] [place] [address] [address] [place] [address] PCP - General Geriatric Medicine 04/25/24 documented as of this encounter
--- OUTSIDE RECORDS SUMMARY | 2025-04-03 22:06 | XMS_ITS | Encounter Summary ---
Author Organization [facility] Address [address] [place] [phone] Care Team Providers Care Hack Saw Operator Name Role Phone Torrey Kwok MD Primary Care Provider [phone] Encounter Details Date Type Department Care Team (Late st Contact Info) Description 11/08/2024 Lab Requisition [facility] - Main Lab 299 [facility] [place] [address] Torrey Kwok MD [address] [place], [place] [phone] Type 2 diabetes mellitus with diabetic chronic [...] retinopathy without macular edema ([facility] V24, [facility] V28) documented in this encounter Results * (ABNORMAL) Complete blood count (11/10/2024 9:37 AM EDT) [facility] WBC 7.4 4.8 - 10.8 K/mcL LAB HEMETOLOGY METHOD 11/10/2024 1:22 PM [facility] RBC 3.30(L) 3.80 - 4.80 M/mcL LAB HEMETOLOGY METHOD 11/10/2024 1:22 PM [facility] Hemoglobin 10.3(L) 11.5 - 16.0 g/dL LAB HEMETOLOGY METHOD 11/10/2024 1:22 PM [facility] Hematocrit 33.5(L) 35.0 - 47.0 % LAB HEMETOLOGY METHOD 11/10/2024 1:22 PM [facility] MCV 101.2(H) 79.0 - 98.0 FL LAB HEMETOLOGY METHOD 11/10/2024 1:22 PM [facility] MCH 31.1 27.0 - 32.0 pcg LAB HEMETOLOGY METHOD 11/10/2024 1:22 PM [facility] MCHC 30.7(L) 32.0 - 37.0 g/dL LAB HEMETOLOGY METHOD 11/10/2024 1:22 PM [facility] RDW 18.3(H) 11.0 - 15.0 % LAB HEMETOLOGY METHOD 11/10/2024 1:22 PM [facility] Platelets 308 130 - 400 K/mcL LAB HEMETOLOGY METHOD 11/10/2024 1:22 PM EDT [facility] MPV 10.5 7.0 - 11.0 FL LAB HEMETOLOGY METHOD 11/10/2024 1:22 PM EDT [facility] NRBC 0.0 <1.0 % LAB HEMETOLOGY METHOD 11/10/2024 1:22 PM EDT [facility] NRBC Absolute 0.00 <0.10 K/mcL LAB HEMETOLOGY METHOD 11/10/2024 1:22 PM EDT [facility] Blood Venous blood specimen / Unknown Venipuncture / Unknown 11/10/2024 9:37 AM EDT 11/10/2024 11:17 AM EDT us Torrey Kwok MD LAB BLOOD ORDERABLES Final Resul t [facility] [address] [place] [address], * (ABNORMAL) Basic metabolic panel (11/10/2024 9:37 AM EDT) Sodium 136 133 - 145 mmol/L LAB CHEMISTRY METHOD 11/10/2024 1:18 PM [facility] Potassium 3.8 3.5 - 5.5 mmol/L LAB CHEMISTRY METHOD 11/10/2024 1:18 PM [facility] Chloride 103 96 - 110 mmol/L LAB CHEMISTRY METHOD 11/10/2024 1:18 PM [facility] CO2 26 21 - 32 mmol/L LAB CHEMISTRY METHOD 11/10/2024 1:18 PM [facility] Anion Gap 7 3 - 11 LAB CHEMISTRY METHOD 11/10/2024 1:18 PM [facility] Glucose 246(H) 70 - 100 mg/dL LAB CHEMISTRY METHOD 11/10/2024 1:18 PM [facility] BUN 28(H) 5 - 25 mg/dL LAB CHEMISTRY METHOD 11/10/2024 1:18 PM EDT [facility] Creatinine 1.22(H) 0.50 - 1.10 mg/dL LAB CHEMISTRY METHOD 11/10/2024 1:18 PM EDT [facility] eGFR 43(L) >=60 mL/min/1. 73m2 LAB CHEMISTRY METHOD 11/10/2024 1:18 PM EDT [facility] Comment:Calculation based on the Chronic Kidney Disease Epidemiology Collaboration (CKD-EPI) equation refit without adjustment for race. BUN/Creatinine Ratio 23.0 LAB CHEMISTRY METHOD 11/10/2024 1:18 PM EDT [facility] Calcium 8.9 8.5 - 10.5 mg/dL LAB CHEMISTRY METHOD 11/10/2024 1:18 PM EDT [facility] Blood Venous blood specimen / Unknown Venipuncture / Unknown 11/10/2024 9:37 AM EDT 11/10/2024 11:17 AM EDT Torrey Kwok MD LAB BLOOD ORDERABLES Final Resul t [facility] [address] [place] [address], documented in this encounter Visit Diagnoses Diagnosis [...] documented as of this encounter Care Teams Hack Saw Operator Relationship Specialty Start Date End Date Torrey Kwok MD [address] [facility] [address] [place] [address] PCP - General Geriatric Medicine 04/25/24 documented as of this encounter
--- OUTSIDE RECORDS SUMMARY | 2025-04-03 22:06 | XMS_ITS | Encounter Summary ---
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 ([facility] V24, [facility] V28) documented in this encounter Results * (ABNORMAL) Basic metabolic panel (10/06/2024 5:29 AM EDT) Sodium 131(L) 133 - 145 mmol/L LAB CHEMISTRY METHOD 10/06/2024 11:33 AM [facility] Potassium 4.6 3.5 - 5.5 mmol/L LAB CHEMISTRY METHOD 10/06/2024 11:33 AM [facility] Chloride 96 96 - 110 mmol/L LAB CHEMISTRY METHOD 10/06/2024 11:33 AM [facility] CO2 28 21 - 32 mmol/L LAB CHEMISTRY METHOD 10/06/2024 11:33 AM [facility] Anion Gap 7 3 - 11 LAB CHEMISTRY METHOD 10/06/2024 11:33 AM [facility] Glucose 133(H) 70 - 100 mg/dL LAB CHEMISTRY METHOD 10/06/2024 11:33 AM [facility] BUN 29(H) 5 - 25 mg/dL LAB CHEMISTRY METHOD 10/06/2024 11:33 AM [facility] Creatinine 1.32(H) 0.50 - 1.10 mg/dL LAB CHEMISTRY METHOD 10/06/2024 11:33 AM [facility] eGFR 39(L) >=60 mL/min/1. 73m2 LAB CHEMISTRY METHOD 10/06/2024 11:33 AM [facility] Comment:Calculation based on [...] Resul t [facility] [address] [place] [address], * (ABNORMAL) Complete blood count (10/06/2024 5:29 AM EDT) WBC 7.7 4.8 - 10.8 K/mcL LAB HEMETOLOGY METHOD 10/06/2024 11:21 AM [facility] RBC 3.10(L) 3.80 - 4.80 M/mcL LAB HEMETOLOGY METHOD 10/06/2024 11:21 AM [facility] Hemoglobin 9.7(L) 11.5 - 16.0 g/dL LAB HEMETOLOGY METHOD 10/06/2024 11:21 AM [facility] Hematocrit 29.9(L) 35.0 - 47.0 % LAB HEMETOLOGY METHOD 10/06/2024 11:21 AM T [facility] MCV 97.7 79.0 - 98.0 FL LAB HEMETOLOGY METHOD 10/06/2024 11:21 AM T [facility] MCH 31.7 27.0 - 32.0 pcg LAB HEMETOLOGY METHOD 10/06/2024 11:21 AM [facility] MCHC 32.4 32.0 - 37.0 [...] 11:21 AM EDT [facility] Blood Venous blood specimen / Unknown Venipuncture / Unknown 10/06/2024 5:29 AM EDT 10/06/2024 10:08 AM EDT Torrey Kwok MD LAB BLOOD ORDERABLES Final Resul t [facility] [address] [place] [address], documented in this encounter Visit Diagnoses Diagnosis [...] documented as of this encounter Care Teams Paster Operator Relationship Specialty Start Date End Date Torrey Kwok MD [address] [place] [address] [address] [place] [address] PCP - General Geriatric Medicine 04/25/24 documented as of this encounter
--- OUTSIDE RECORDS SUMMARY | 2025-04-03 22:07 | XMS_ITS | Encounter Summary ---
Author Organization [facility] [address] Address [address] [place] [address] Care Team Providers Care Drapery And Upholstery Estimator Name Role Phone Torrey Kwok MD Primary Care Provider [phone] Encounter Details Date Type Department Care Team (Late st Contact Info) Description 05/30/2024 Lab Requisition [facility] - Main Lab [address] [place] [address] Torrey Kwok MD [address] [place], [place] [phone] Essential (primary) hypertension; Type 2 diabetes mellitus [...] LAB CHEMISTRY METHOD 05/30/2024 5:00 PM EST [facility] Potassium 3.6 3.5 - 5.5 mmol/L LAB CHEMISTRY METHOD 05/30/2024 5:00 PM [facility] Chloride 104 96 - 110 mmol/L LAB CHEMISTRY METHOD 05/30/2024 5:00 PM [facility] CO2 26 21 - 32 mmol/L LAB CHEMISTRY METHOD 05/30/2024 5:00 PM [facility] Anion Gap 9 3 - 11 LAB CHEMISTRY METHOD 05/30/2024 5:00 PM [facility] Glucose 81 70 - 100 mg/dL LAB CHEMISTRY METHOD 05/30/2024 5:00 PM [facility] BUN 31(H) 5 - 25 mg/dL LAB CHEMISTRY METHOD 05/30/2024 5:00 PM [facility] Creatinine 1.11(H) 0.50 - 1.10 mg/dL LAB CHEMISTRY METHOD 05/30/2024 5:00 PM [facility] eGFR 48(L) >=60 mL/min/1. 73m2 LAB CHEMISTRY METHOD 05/30/2024 5:00 PM [facility] Comment:Calculation based on the Chronic Kidney Disease Epidemiology Collaboration (CKD-EPI) equation refit without adjustment for race. BUN/Creatinine Ratio 27.9 LAB CHEMISTRY METHOD 05/30/2024 5:00 PM [facility] Calcium 8.8 8.5 - 10.5 mg/dL LAB CHEMISTRY METHOD 05/30/2024 5:00 PM [facility] Blood Venous blood specimen / Unknown Venipuncture / Unknown 05/30/2024 3:45 PM EST 05/30/2024 4:21 PM EST us Torrey Kwok MD LAB BLOOD ORDERABLES Final Resul t [facility] [address] [place] [address], [place] [phone] * (ABNORMAL) Complete blood count (05/30/2024 3:45 PM EST) [facility] WBC 7.1 4.8 - 10.8 K/mcL LAB HEMETOLOGY METHOD 05/30/2024 4:35 PM [facility] RBC 3.20(L) 3.80 - 4.80 M/mcL LAB HEMETOLOGY METHOD 05/30/2024 4:35 PM [facility] Hemoglobin 10.3(L) 11.5 - 16.0 g/dL LAB HEMETOLOGY METHOD 05/30/2024 4:35 PM [facility] Hematocrit 32.0(L) 35.0 - 47.0 % LAB HEMETOLOGY METHOD 05/30/2024 4:35 PM [facility] MCV 100.0(H) 79.0 - 98.0 FL LAB HEMETOLOGY METHOD 05/30/2024 4:35 PM [facility] MCH 32.2(H) 27.0 - 32.0 pcg LAB HEMETOLOGY METHOD 05/30/2024 4:35 PM [facility] MCHC 32.2 32.0 - 37.0 g/dL LAB HEMETOLOGY METHOD 05/30/2024 4:35 PM [facility] RDW 18.3(H) 11.0 - 15.0 % LAB HEMETOLOGY METHOD 05/30/2024 4:35 PM [facility] Platelets 319 130 - 400 K/mcL LAB HEMETOLOGY METHOD 05/30/2024 4:35 PM [facility] MPV 10.1 7.0 - 11.0 FL LAB HEMETOLOGY METHOD 05/30/2024 4:35 PM [facility] NRBC 0.0 <1.0 % LAB HEMETOLOGY METHOD 05/30/2024 4:35 PM [facility] NRBC Absolute 0.00 <0.10 K/mcL LAB HEMETOLOGY METHOD 05/30/2024 4:35 PM EST [facility] Blood Venous blood specimen / Unknown Venipuncture / Unknown 05/30/2024 3:45 PM EST 05/30/2024 4:21 PM EST us Torrey Kwok MD LAB BLOOD ORDERABLES Final Resul t [facility] [address] [place] [address], documented in this encounter Visit Diagnoses Diagnosis Essential (primary) hypertension Unspecified essential hypertension Type 2 diabetes mellitus without complications (CMS/HCC V24, CMS/HCC V28) documented in this encounter Additional Health Concerns Infection Onset Date Last Indicated Resolved Time Respiratory Rule-Out 07/12/2024 07/11/2024 025 11:25 AM EDT C. difficile Rule-Out 03/12/2025 03/11/20252024 11:34 AM EST documented as of this encounter Care Teams Drapery And Upholstery Estimator Relationship Specialty Start Date End Date Torrey Kwok MD [address] [place] [address] [address] [place] [address] PCP - General Geriatric Medicine 04/25/24 documented as of this encounter
--- OUTSIDE RECORDS SUMMARY | 2025-04-03 22:07 | XMS_ITS | Encounter Summary ---
Author Organization [facility] Address [address] [place] [address] Care Team Providers Care Filter Bed Placer Name Role Phone Torrey Kwok MD Primary Care Provider [phone] Encounter Details Date Type Department Care Team (Late st Contact Info) Description 06/07/2024 Lab Requisition [facility] - Main Lab 299 [facility] [place] [address] Torrey Kwok MD [address] [place], [place] [phone] Heart failure, unspecified (CMS/HCC V24, CMS/HCC V28); [...] mellitus with diabetic chronic kidney disease ([facility]/HCC) Chronic kidney disease, stage 3 unspecified (CMS/HCC) Vitamin D deficiency, unspecified Essential (primary) hypertension documented in this encounter Results * Vitamin D 25 hydroxy (06/07/2024 6:36 AM EST) Vit D, 25-Hydroxy 41.4 30.0 - 80.0 ng/mL LAB CHEMISTRY METHOD 06/07/2024 1:29 PM EST [facility] Blood Venous blood specimen / Unknown Venipuncture / Unknown 06/07/2024 6:36 AM EST 06/07/2024 9:58 AM EST us Torrey Kwok MD LAB BLOOD ORDERABLES Final Resul t Performing Organization Address City/[facility]/ZIP Co de Phone Number [facility] [address] [place] [address], [place] [phone] * Folate (06/07/2024 6:36 AM EST) Folate 9.8 2.8 - 17.0 ng/ml LAB CHEMISTRY METHOD 06/07/2024 12:13 PM EST [facility] Blood Venous blood specimen / Unknown Venipuncture / Unknown 06/07/2024 6:36 AM EST 06/07/2024 9:58 AM EST us Torrey Kwok MD LAB BLOOD ORDERABLES Final Resul t [facility] [address] [place] [address], [place] [phone] * (ABNORMAL) Vitamin B12 (06/07/2024 6:36 AM EST) Vitamin B-12 1,072(H) 250 - 900 pcg/mL LAB CHEMISTRY METHOD 06/07/2024 12:13 PM EST [facility] Blood Venous blood specimen / Unknown Venipuncture / Unknown 06/07/2024 6:36 AM EST 06/07/2024 9:58 AM EST Torrey Kwok MD LAB BLOOD ORDERABLES Final Resul t [facility] [address] [place] [address], documented in this encounter Visit Diagnoses Diagnosis Heart failure, unspecified ([facility] V24, [facility] V28) Heart failure, unspecified Type 2 diabetes mellitus with diabetic chronic kidney disease ([facility] V24, [facility] V28) Chronic kidney disease, stage 3 unspecified ([facility] V24, [facility] V28) Vitamin D deficiency, unspecified Essential (primary) hypertension Unspecified essential hypertension documented in this encounter Additional Health Concerns Infection Onset Date Last Indicated Resolved Time Respiratory Rule-Out 07/12/2024 07/11/2024 025 11:25 AM EDT C. difficile Rule-Out 03/12/2025 03/11/20252024 11:34 AM EST documented as of this encounter Care Teams Filter Bed Placer Relationship Specialty Start Date End Date Torrey Kwok MD [address] [place] [address] [address] [place] [address] PCP - General Geriatric Medicine 04/25/24 documented as of this encounter
--- OUTSIDE RECORDS SUMMARY | 2025-04-03 22:07 | XMS_ITS | Encounter Summary ---
Author Organization [facility] Address [address] [place] [address] Care Team Providers Care Physician Coding Specialist Name Role Phone Torrey Kwok MD Primary Care Provider [phone] Encounter Details Date Type Department Care Team (Late st Contact Info) Description 04/25/2024 Lab Requisition [facility] - Main Lab 299 [facility] [employer] [address] Torrey Kwok MD [address] [place], [place] [phone] Vitamin D deficiency, unspecified; Type 2 diabetes [...] Final Resul t [facility] [address] [place] [address], [place] [phone] * Thyroid stimulating hormone (04/25/2024 5:49 AM EST) [facility] TSH 3.04 0.40 - 4.00 mcIU/mL LAB CHEMISTRY METHOD 04/25/2024 10:35 AM EST [facility] Blood Venous blood specimen / Unknown Venipuncture / Unknown 04/25/2024 5:49 AM EST 04/25/2024 9:21 AM EST us Torrey Kwok MD LAB BLOOD ORDERABLES Final Resul t Performing Organization Address City/[facility]/ZIP Co de Phone Number [facility] [address] [place] [address], [place] [phone] * Folate (04/25/2024 5:49 AM EST) [facility] Folate 12.8 2.8 - 17.0 ng/ml LAB CHEMISTRY METHOD 04/25/2024 11:26 AM EST [facility] Blood Venous blood specimen / Unknown Venipuncture / Unknown 04/25/2024 5:49 AM EST 04/25/2024 9:21 AM EST us Torrey Kwok MD LAB BLOOD ORDERABLES Final Resul t [facility] [address] [place] [address], [place] [phone] * Vitamin B12 (04/25/2024 5:49 AM EST) [facility] Vitamin B-12 711 250 - 900 pcg/mL LAB CHEMISTRY METHOD 04/25/2024 11:26 AM EST [facility] Blood Venous blood specimen / Unknown Venipuncture / Unknown 04/25/2024 5:49 AM EST 04/25/2024 9:21 AM EST us Torrey Kwok MD LAB BLOOD ORDERABLES Final Resul t [facility] [address] [place] [address], [place] [phone] * (ABNORMAL) Hemoglobin A1c (04/25/2024 5:49 AM EST) Hemoglobin A1C 8.7(H) <6.5 % LAB CHEMISTRY METHOD 04/25/2024 1:33 PM EST [facility] Mean Bld Glu Estim. 203 mg/dL LAB CHEMISTRY METHOD 04/25/2024 1:33 PM [facility] Blood Venous blood specimen / Unknown Venipuncture / Unknown 04/25/2024 5:49 AM EST 04/25/2024 9:21 AM EST us Torrey Kwok MD LAB BLOOD ORDERABLES Final Resul t Performing Organization Address [facility]/ZIP Co de Phone Number [facility] [address] [place] [address], [place] [phone] * (ABNORMAL) Comprehensive metabolic panel (04/25/2024 5:49 AM EST) Pathologist [facility] Sodium 135 133 - 145 mmol/L LAB CHEMISTRY METHOD 04/25/2024 11:26 AM [facility] Potassium 4.0 3.5 - 5.5 mmol/L LAB CHEMISTRY METHOD 04/25/2024 11:26 AM EST [facility] Chloride 98 96 - 110 mmol/L LAB CHEMISTRY METHOD 04/25/2024 11:26 AM [facility] CO2 30 21 - 32 mmol/L LAB CHEMISTRY METHOD 04/25/2024 11:26 AM [facility] Anion Gap 7 3 - 11 LAB CHEMISTRY METHOD 04/25/2024 11:26 AM [facility] Glucose 290(H) 70 - 100 mg/dL LAB CHEMISTRY METHOD 04/25/2024 11:26 AM [facility] BUN 25 5 - 25 mg/dL LAB CHEMISTRY METHOD 04/25/2024 11:26 AM [facility] Creatinine 1.06 0.50 - 1.10 mg/dL LAB CHEMISTRY METHOD 04/25/2024 11:26 AM [facility] eGFR 51(L) >=60 mL/min/1. 73m2 LAB CHEMISTRY METHOD 04/25/2024 11:26 AM [facility] Comment:Calculation based on the Chronic Kidney Disease Epidemiology Collaboration (CKD-EPI) equation refit without adjustment for race. BUN/Creatinine Ratio 23.6 LAB CHEMISTRY METHOD 04/25/2024 11:26 AM [facility] Calcium 8.2(L) 8.5 - 10.5 mg/dL LAB CHEMISTRY METHOD 04/25/2024 11:26 AM [facility] AST (SGOT) 17 10 - 42 unit/L LAB CHEMISTRY METHOD 04/25/2024 11:26 AM [facility] ALT (SGPT) 16 10 - 60 unit/L LAB CHEMISTRY METHOD 04/25/2024 11:26 AM [facility] Alkaline Phosphatase 81 42 - 121 unit/L LAB CHEMISTRY METHOD 04/25/2024 11:26 AM [facility] Total Protein 5.3(L) 6.0 - 8.0 g/dL LAB CHEMISTRY METHOD 04/25/2024 11:26 AM [facility] Albumin 2.7(L) 3.2 - 5.0 g/dL LAB CHEMISTRY METHOD 04/25/2024 11:26 AM [facility] Total Bilirubin 1.2 0.0 - 1.4 mg/dL LAB CHEMISTRY METHOD 04/25/2024 11:26 AM [facility] Blood Venous blood specimen / Unknown Venipuncture / Unknown 04/25/2024 5:49 AM EST 04/25/2024 9:21 AM EST us Torrey Kwok MD LAB BLOOD ORDERABLES Final Resul t [facility] [address] [place] [address], [place] [phone] * (ABNORMAL) Complete blood count (04/25/2024 5:49 AM EST) WBC 7.7 4.8 - 10.8 K/mcL LAB HEMETOLOGY METHOD 04/25/2024 10:07 AM [facility] RBC 2.90(L) 3.80 - 4.80 M/mcL LAB HEMETOLOGY METHOD 04/25/2024 10:07 AM [facility] Hemoglobin 9.1(L) 11.5 - 16.0 g/dL LAB HEMETOLOGY METHOD 04/25/2024 10:07 AM [facility] Hematocrit 27.7(L) 35.0 - 47.0 % LAB HEMETOLOGY METHOD 04/25/2024 10:07 AM [facility] MCV 94.9 79.0 - 98.0 FL LAB HEMETOLOGY METHOD 04/25/2024 10:07 AM [facility] MCH 31.2 27.0 - 32.0 pcg LAB HEMETOLOGY METHOD 04/25/2024 10:07 AM [facility] MCHC 32.9 32.0 - 37.0 g/dL LAB HEMETOLOGY METHOD 04/25/2024 10:07 AM [facility] RDW 15.5(H) 11.0 - 15.0 % LAB HEMETOLOGY METHOD 04/25/2024 10:07 AM [facility] Platelets 214 130 - 400 K/mcL LAB HEMETOLOGY METHOD 04/25/2024 10:07 AM [facility] MPV 10.8 [...] Resul t [facility] [address] [place] [address], documented in this encounter Visit Diagnoses Diagnosis [...] documented as of this encounter Care Teams Physician Coding Specialist Relationship Specialty Start Date End Date Torrey Kwok MD [address] [facility] [address] [place] [address] PCP - General Geriatric Medicine 04/25/24 documented as of this encounter
--- OUTSIDE RECORDS SUMMARY | 2025-04-03 22:07 | XMS_ITS | Encounter Summary ---
Author Organization [facility] Address [address] [place] [address] Care Team Providers Care Assistant Professor Of Spanish Name Role Phone Torrey Kwok MD Primary Care Provider [phone] Encounter Details Date Type Department Care Team (Late st Contact Info) Description 06/21/2024 Lab Requisition [facility] - Main Lab 299 [facility] [place] [address] Torrey Kwok MD [address] [place], [place] [phone] Type 2 diabetes mellitus with diabetic chronic [...] (CMS/HCC) Essential (primary) hypertension Heart failure, unspecified ([facility]/HCC) documented in this encounter Results * (ABNORMAL) Thyroid stimulating hormone (06/23/2024 5:47 AM EDT) Pathologist [facility] TSH 21.48(H) 0.40 - 4.00 mcIU/mL LAB CHEMISTRY METHOD 06/23/2024 1:59 PM EDT [facility] Blood Venous blood specimen / Unknown Venipuncture / Unknown 06/23/2024 5:47 AM EDT 06/23/2024 11:30 AM EDT Torrey Kwok MD LAB BLOOD ORDERABLES Final Resul t [facility] [address] [place] [address], * (ABNORMAL) Basic metabolic panel (06/23/2024 5:47 AM EDT) Pathologist [facility] Sodium 137 133 - 145 mmol/L LAB CHEMISTRY METHOD 06/23/2024 1:47 PM T [facility] Potassium 3.9 3.5 - 5.5 mmol/L LAB CHEMISTRY METHOD 06/23/2024 1:47 PM T [facility] Chloride 102 96 - 110 mmol/L LAB CHEMISTRY METHOD 06/23/2024 1:47 PM T [facility] CO2 30 21 - 32 mmol/L LAB CHEMISTRY METHOD 06/23/2024 1:47 PM EDT [facility] Anion Gap 5 3 - 11 LAB CHEMISTRY METHOD 06/23/2024 1:47 PM [facility] Glucose 70 70 - 100 mg/dL LAB CHEMISTRY METHOD 06/23/2024 1:47 PM T [facility] BUN 33(H) 5 - 25 mg/dL LAB CHEMISTRY METHOD 06/23/2024 1:47 PM EDT [facility] Creatinine 0.86 [...] t [facility] [address] [place] [address], * (ABNORMAL) Complete blood count (06/23/2024 5:47 [...] t [facility] [address] [place] [address], documented in this encounter Visit Diagnoses Diagnosis 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, CMS/HCC V28) Essential (primary) hypertension Unspecified essential hypertension Heart failure, unspecified ([facility] V24, [facility] V28) Heart failure, unspecified documented in this encounter Additional Health Concerns Infection Onset Date Last Indicated Resolved Time Respiratory Rule-Out 07/12/2024 07/11/2024 025 11:25 AM EDT C. difficile Rule-Out 03/12/2025 03/11/20252024 11:34 AM EST documented as of this encounter Care Teams Assistant Professor Of Spanish Relationship Specialty Start Date End Date Torrey Kwok MD [address] [place] [address] [address] [place] [address] PCP - General Geriatric Medicine 04/25/24 documented as of this encounter
--- OUTSIDE RECORDS SUMMARY | 2025-04-03 22:07 | XMS_ITS | Encounter Summary ---
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 ([facility]) documented in this encounter Results * (ABNORMAL) Basic metabolic panel (06/02/2024 5:33 AM EST) Sodium 133 133 - 145 mmol/L LAB CHEMISTRY METHOD 06/02/2024 1:18 PM [facility] Potassium 3.7 3.5 - 5.5 mmol/L LAB CHEMISTRY METHOD 06/02/2024 1:18 PM [facility] Chloride 94(L) 96 - 110 mmol/L LAB CHEMISTRY METHOD 06/02/2024 1:18 PM [facility] CO2 27 21 - 32 mmol/L LAB CHEMISTRY METHOD 06/02/2024 1:18 PM [facility] Anion Gap 12(H) 3 - 11 LAB CHEMISTRY METHOD 06/02/2024 1:18 PM [facility] Glucose 464(HH) 70 - 100 mg/dL LAB CHEMISTRY METHOD 06/02/2024 1:18 PM [facility] BUN 34(H) 5 - 25 mg/dL LAB CHEMISTRY METHOD 06/02/2024 1:18 PM [facility] Creatinine 1.18(H) 0.50 - 1.10 mg/dL LAB CHEMISTRY METHOD 06/02/2024 1:18 PM [facility] eGFR 45(L) >=60 mL/min/1. 73m2 LAB CHEMISTRY METHOD 06/02/2024 1:18 PM [facility] Comment:Calculation based on the Chronic Kidney Disease Epidemiology Collaboration (CKD-EPI) equation refit without adjustment for race. BUN/Creatinine Ratio 28.8 LAB CHEMISTRY METHOD 06/02/2024 1:18 PM [facility] Calcium 9.0 8.5 - 10.5 mg/dL LAB CHEMISTRY METHOD 06/02/2024 1:18 PM [facility] Blood Venous blood specimen / Unknown Venipuncture / Unknown 06/02/2024 5:33 AM EST 06/02/2024 10:52 AM EST Torrey Kwok MD LAB BLOOD ORDERABLES Final Resul t [facility] [address] [place] [address], * (ABNORMAL) Complete blood count (06/02/2024 5:33 AM EST) WBC 9.9 4.8 - 10.8 K/mcL LAB HEMETOLOGY METHOD 06/02/2024 2:00 PM [facility] RBC 3.70(L) 3.80 - 4.80 M/mcL LAB HEMETOLOGY METHOD 06/02/2024 2:00 PM [facility] Hemoglobin 11.5 11.5 - 16.0 g/dL LAB HEMETOLOGY METHOD 06/02/2024 2:00 PM [facility] Hematocrit 37.8 35.0 - 47.0 % LAB HEMETOLOGY METHOD 06/02/2024 2:00 PM [facility] MCV 103.6(H) 79.0 - 98.0 FL LAB HEMETOLOGY METHOD 06/02/2024 2:00 PM [facility] MCH 31.5 27.0 - 32.0 pcg LAB HEMETOLOGY METHOD 06/02/2024 2:00 PM [facility] MCHC 30.4(L) 32.0 - 37.0 g/dL LAB HEMETOLOGY METHOD 06/02/2024 2:00 PM [facility] RDW 18.5(H) 11.0 - 15.0 % LAB HEMETOLOGY METHOD 06/02/2024 2:00 PM [facility] Platelets 365 130 - 400 K/mcL LAB HEMETOLOGY METHOD 06/02/2024 2:00 PM EST [facility] MPV 10.4 7.0 - 11.0 FL LAB HEMETOLOGY METHOD 06/02/2024 2:00 PM EST [facility] NRBC 0.0 <1.0 % LAB HEMETOLOGY METHOD 06/02/2024 2:00 PM EST [facility] NRBC Absolute 0.00 <0.10 K/mcL LAB HEMETOLOGY METHOD 06/02/2024 2:00 PM EST [facility] Blood Venous blood specimen / Unknown Venipuncture / Unknown 06/02/2024 5:33 AM EST 06/02/2024 10:52 AM EST Torrey Kwok MD LAB BLOOD ORDERABLES Final Resul t [facility] [address] [place] [address], documented in this encounter Visit Diagnoses Diagnosis 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, [facility]/HCC V28) Essential (primary) hypertension Unspecified essential hypertension Heart failure, unspecified ([facility]/HCC V24, [facility]/HCC V28) Heart failure, unspecified Type 2 diabetes mellitus with 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 difficile Rule-Out 03/12/2025 03/11/20252024 11:34 AM EST documented as of this encounter Care Teams Technical Expert Relationship Specialty Start Date End Date Torrey Kwok MD [address] [place] [address] [address] [place] [address] PCP - General Geriatric Medicine 04/25/24 documented as of this encounter
--- OUTSIDE RECORDS SUMMARY | 2025-04-03 22:07 | XMS_ITS | Encounter Summary ---
Author Organization [facility] Address [address] [place] [phone] Care Team Providers Care Physician Pediatrician Name Role Phone Torrey Kwok MD Primary Care Provider [phone] Encounter Details Date Type Department Care Team (Late st Contact Info) Description 03/13/2025 Lab Requisition [facility] - Main Lab 299 [facility] [place] [address] Torrey Kwok MD [address] [place], [place] [phone] Type 2 diabetes mellitus with diabetic chronic [...] Associated Diagnosis Comments COMPLETE BLOOD COUNT Routine 03/16/2025 5:05 AM EST 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, CMS/HCC V28) 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 V24, CMS/HCC V28) Essential (primary) hypertension Heart failure, unspecified (CMS/HCC V24, CMS/HCC V28) BASIC METABOLIC PANEL Routine 03/16/2025 5:05 AM EST Type 2 diabetes mellitus with diabetic chronic kidney disease ([facility] V24, [facility] V28) 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 WBC 7.8 4.8 - 10.8 K/mcL LAB HEMETOLOGY METHOD 03/16/2025 10:55 AM [facility] RBC 3.60(L) 3.80 - 4.80 M/mcL LAB HEMETOLOGY METHOD 03/16/2025 10:55 AM [facility] Hemoglobin 11.2(L) 11.5 - 16.0 g/dL LAB HEMETOLOGY METHOD 03/16/2025 10:55 AM [facility] Hematocrit 34.6(L) 35.0 - 47.0 % LAB HEMETOLOGY METHOD 03/16/2025 10:55 AM [facility] MCV 96.4 79.0 - 98.0 FL LAB HEMETOLOGY METHOD 03/16/2025 10:55 AM [facility] MCH 31.2 27.0 - 32.0 pcg LAB HEMETOLOGY METHOD 03/16/2025 10:55 AM [facility] MCHC 32.4 32.0 - 37.0 g/dL LAB HEMETOLOGY METHOD 03/16/2025 10:55 AM [facility] RDW 17.6(H) 11.0 - 15.0 % LAB HEMETOLOGY METHOD 03/16/2025 10:55 AM [facility] Platelets 309 130 - 400 K/mcL LAB HEMETOLOGY METHOD 03/16/2025 10:55 AM [facility] MPV 10.7 7.0 - 11.0 FL LAB HEMETOLOGY METHOD 03/16/2025 10:55 AM EST [facility] NRBC 0.0 <1.0 % LAB HEMETOLOGY METHOD 03/16/2025 10:55 AM [facility] NRBC Absolute 0.00 <0.10 K/mcL LAB HEMETOLOGY METHOD 03/16/2025 10:55 AM [facility] Blood Venous blood specimen / Unknown Venipuncture / Unknown 03/16/2025 5:05 AM EST 03/16/2025 10:35 AM EST Torrey Kwok MD LAB BLOOD ORDERABLES Final Resul t [facility] [address] [place] [address], * (ABNORMAL) Basic metabolic panel (03/16/2025 5:05 AM EST) Sodium 133 133 - 145 mmol/L 03/16/2025 12:03 PM [facility] Potassium 4.8 3.5 - 5.5 mmol/L 03/16/2025 12:03 PM [facility] Chloride 94(L) 96 - 110 mmol/L 03/16/2025 12:03 PM [facility] CO2 29 21 - 32 mmol/L 03/16/2025 12:03 PM [facility] Anion Gap 10 3 - 11 03/16/2025 12:03 PM [facility] Glucose 416(HH) 70 - 100 mg/dL 03/16/2025 12:03 PM [facility] BUN 33(H) 5 - 25 mg/dL 03/16/2025 12:03 PM [facility] Creatinine 1.37(H) 0.50 - 1.10 mg/dL 03/16/2025 12:03 PM [facility] eGFR 37(L) >=60 mL/min/1. 73m2 03/16/2025 12:03 PM [facility] Comment:Calculation based on the Chronic Kidney Disease Epidemiology Collaboration (CKD-EPI) equation refit without adjustment for race. BUN/Creatinine Ratio 24.1 03/16/2025 12:03 PM [facility] Calcium 8.4(L) 8.5 - 10.5 mg/dL 03/16/2025 12:03 PM [facility] Blood Venous blood specimen / Unknown Venipuncture / Unknown 03/16/2025 5:05 AM EST 03/16/2025 10:35 AM EST Torrey Kwok MD LAB BLOOD ORDERABLES Final Resul t [facility] [address] [place] [address], documented in this encounter Visit Diagnoses Diagnosis Type 2 diabetes mellitus with diabetic chronic kidney disease ([facility] V24, [facility] V28) 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 ([facility] V24, [facility] V28) Essential (primary) hypertension Unspecified essential hypertension Heart failure, unspecified ([facility] V24, [facility] V28) Heart failure, unspecified documented in this encounter Care Teams Physician Pediatrician Relationship Specialty Start Date End Date Torrey Kwok MD [address] [place] [address] [address] [place] [address] PCP - General Geriatric Medicine 04/25/24 documented as of this encounter
--- OUTSIDE RECORDS SUMMARY | 2025-04-03 22:07 | XMS_ITS | Encounter Summary ---
Author Organization [facility] Address [address] [place] [address] Care Team Providers Care Mill Turner Name Role Phone Torrey Kwok MD Primary Care Provider [phone] Encounter Details Date Type Department Care Team (Late st Contact Info) Description 05/05/2024 Lab Requisition [facility] Lab [address] [place] [address] Torrey Kwok MD [address] [place], [place] [phone] Chronic kidney disease, stage 3 unspecified (CMS/HCC [...] Resul t [facility] [address] [place] [address], documented in this encounter Visit Diagnoses Diagnosis Chronic kidney disease, stage 3 unspecified (CMS/[facility] V24, [facility] V28) Type 2 diabetes mellitus with diabetic chronic kidney disease ([facility] V24, [facility] V28) documented in this encounter Additional Health Concerns Infection Onset Date Last Indicated Resolved Time Respiratory Rule-Out 07/12/2024 07/11/2024 025 11:25 AM EDT C. difficile Rule-Out 03/12/2025 03/11/20252024 11:34 AM EST documented as of this encounter Care Teams Mill Turner Relationship Specialty Start Date End Date Torrey Kwok MD [address] [place] [address] [address] [place] [address] PCP - General Geriatric Medicine 04/25/24 documented as of this encounter
--- OUTSIDE RECORDS SUMMARY | 2025-04-03 22:07 | XMS_ITS | Encounter Summary ---
Author Organization [facility] Address [address] [place] [address] Care Team Providers Care Gas Station Attendant Name Role Phone Torrey Kwok MD Primary Care Provider [phone] Encounter Details Date Type Department Care Team (Late st Contact Info) Description 03/28/2025 Lab Requisition [facility] - Main Lab 299 [facility] [place] [address] Torrey Kwok MD [address] [place], [place] [id number] 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, CMS/HCC V28); 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 V24, CMS/HCC V28); Essential [...] Associated Diagnosis Comments COMPLETE BLOOD COUNT Routine 03/30/2025 5:44 AM [...] with unspecified diabetic retinopathy without macular edema ([facility], [facility] V28) Essential (primary) hypertension Heart failure, unspecified ([facility] V24, [facility] V28) documented in this encounter Results * (ABNORMAL) Complete blood count (03/30/2025 5:44 AM EST) [facility] WBC 6.3 4.8 - 10.8 K/mcL LAB HEMETOLOGY METHOD 03/30/2025 11:11 AM [facility] RBC 3.30(L) 3.80 - 4.80 M/mcL LAB HEMETOLOGY METHOD 03/30/2025 11:11 AM [facility] Hemoglobin 10.3(L) 11.5 - 16.0 g/dL LAB HEMETOLOGY METHOD 03/30/2025 11:11 AM [facility] Hematocrit 31.9(L) 35.0 - 47.0 % LAB HEMETOLOGY METHOD 03/30/2025 11:11 AM [facility] MCV 97.3 79.0 - 98.0 FL LAB HEMETOLOGY METHOD 03/30/2025 11:11 AM [facility] MCH 31.4 27.0 - 32.0 pcg LAB HEMETOLOGY METHOD 03/30/2025 11:11 AM [facility] MCHC 32.3 32.0 - 37.0 g/dL LAB HEMETOLOGY METHOD 03/30/2025 11:11 AM [facility] RDW 16.8(H) 11.0 - 15.0 % LAB HEMETOLOGY METHOD 03/30/2025 11:11 AM [facility] Platelets 267 130 - 400 K/mcL LAB HEMETOLOGY METHOD 03/30/2025 11:11 AM [facility] MPV 10.1 7.0 - 11.0 FL LAB HEMETOLOGY METHOD 03/30/2025 11:11 AM EST [facility] NRBC 0.0 <1.0 % LAB HEMETOLOGY METHOD 03/30/2025 11:11 AM EST [facility] NRBC Absolute 0.00 <0.10 K/mcL LAB HEMETOLOGY METHOD 03/30/2025 11:11 AM [facility] Blood Venous blood specimen / Unknown Venipuncture / Unknown 03/30/2025 5:44 AM EST 03/30/2025 10:15 AM EST Torrey Kwok MD LAB BLOOD ORDERABLES Final Resul t [facility] [address] [place] [address], * (ABNORMAL) Basic metabolic panel (03/30/2025 5:44 AM EST) Sodium 134 133 - 145 mmol/L 03/30/2025 11:36 AM [facility] Potassium 4.5 3.5 - 5.5 mmol/L 03/30/2025 11:36 AM [facility] Chloride 95(L) 96 - 110 mmol/L 03/30/2025 11:36 AM [facility] CO2 29 21 - 32 mmol/L 03/30/2025 11:36 AM [facility] Anion Gap 10 3 - 11 03/30/2025 11:36 AM [facility] Glucose 163(H) 70 - 100 mg/dL 03/30/2025 11:36 AM [facility] BUN 39(H) 5 - 25 mg/dL 03/30/2025 11:36 AM [facility] Creatinine 1.53(H) 0.50 - 1.10 mg/dL 03/30/2025 11:36 AM EST [facility] eGFR 33(L) >=60 mL/min/1. 73m2 03/30/2025 11:36 AM [facility] Comment:Calculation based on the Chronic Kidney Disease Epidemiology Collaboration (CKD-EPI) equation refit without adjustment for race. BUN/Creatinine Ratio 25.5 03/30/2025 11:36 AM [facility] Calcium 8.3(L) 8.5 - 10.5 mg/dL 03/30/2025 11:36 AM [facility] Blood Venous blood specimen / Unknown Venipuncture / Unknown 03/30/2025 5:44 AM EST 03/30/2025 10:15 AM EST Torrey Kwok MD LAB BLOOD ORDERABLES Final Resul t [facility] [address] [place] [address], documented in this encounter Visit Diagnoses Diagnosis Type 2 diabetes mellitus with diabetic chronic kidney disease ([facility] V24, [facility] V28) Type 2 diabetes mellitus with unspecified diabetic retinopathy without macular edema ([facility] V24, [facility] V28) Essential (primary) hypertension Unspecified essential hypertension Heart failure, unspecified ([facility] V24, [facility] V28) Heart failure, unspecified documented in this encounter Care Teams Gas Station Attendant Relationship Specialty Start Date End Date Torrey Kwok MD [address] [place] [address] [address] [place] [address] PCP - General Geriatric Medicine 04/25/24 documented as of this encounter
--- OUTSIDE RECORDS SUMMARY | 2025-04-03 22:07 | XMS_ITS | Encounter Summary ---
Author Organization [facility] Address [address] [place] [phone] Care Team Providers Care Senior Product Marketing Manager Name Role Phone Torrey Kwok MD Primary Care Provider [phone] Encounter Details Date Type Department Care Team (Late st Contact Info) Description 03/21/2025 Lab Requisition [facility] - Main Lab 299 [facility] [place] [address] Torrey Kwok MD [address] [place], [place] [phone] Type 2 diabetes mellitus with diabetic chronic [...] unspecified documented in this encounter Care Teams Senior Product Marketing Manager Relationship Specialty Start Date End Date Torrey Kwok MD [address] [place] [address] PCP - General Geriatric Medicine 04/25/24 documented as of this encounter
--- OUTSIDE RECORDS SUMMARY | 2025-04-03 22:07 | XMS_ITS | Encounter Summary ---
Author Organization [facility] Address [address] [place] [address] Care Team Providers Care Automobile Washer Steam Name Role Phone Torrey Kwok MD Primary Care Provider [phone] Encounter Details Date Type Department Care Team (Late st Contact Info) Description 08/31/2024 Lab Requisition [facility] - Main Lab 299 [facility] [place] [address] Torrey Kwok MD [address] [place], [place] [phone] Type 2 diabetes mellitus with diabetic chronic [...] mmol/L LAB CHEMISTRY METHOD 09/02/2024 12:54 PM [facility] Potassium 4.6 3.5 - 5.5 mmol/L LAB CHEMISTRY METHOD 09/02/2024 12:54 PM [facility] Chloride 102 96 - 110 mmol/L LAB CHEMISTRY METHOD 09/02/2024 12:54 PM [facility] CO2 19(L) 21 - 32 mmol/L LAB CHEMISTRY METHOD 09/02/2024 12:54 PM [facility] Anion Gap 12(H) 3 - 11 LAB CHEMISTRY METHOD 09/02/2024 12:54 PM [facility] Glucose 348(H) 70 - 100 mg/dL LAB CHEMISTRY METHOD 09/02/2024 12:54 PM [facility] BUN 27(H) 5 - 25 mg/dL LAB CHEMISTRY METHOD 09/02/2024 12:54 PM [facility] Creatinine 1.07 0.50 - 1.10 mg/dL LAB CHEMISTRY METHOD 09/02/2024 12:54 PM [facility] eGFR 50(L) >=60 mL/min/1. 73m2 LAB CHEMISTRY METHOD 09/02/2024 12:54 PM [facility] Comment:Calculation based on the Chronic Kidney Disease Epidemiology Collaboration (CKD-EPI) equation refit without adjustment for race. BUN/Creatinine Ratio 25.2 LAB CHEMISTRY METHOD 09/02/2024 12:54 PM [facility] Calcium 8.8 8.5 - 10.5 mg/dL LAB CHEMISTRY METHOD 09/02/2024 12:54 PM [facility] Blood Venous blood specimen / Unknown Venipuncture / Unknown 09/02/2024 7:40 AM EDT 09/02/2024 10:50 AM EDT Torrey Kwok MD LAB BLOOD ORDERABLES Final Resul t [facility] [address] [place] [address], * (ABNORMAL) Complete blood count (09/02/2024 7:40 AM EDT) Pathologist [facility] WBC 8.8 4.8 - 10.8 K/mcL LAB HEMETOLOGY METHOD 09/02/2024 11:26 AM EDT [facility] RBC 3.60(L) 3.80 - 4.80 M/mcL LAB HEMETOLOGY METHOD 09/02/2024 11:26 AM EDT [facility] Hemoglobin 11.6 11.5 - 16.0 g/dL LAB HEMETOLOGY METHOD 09/02/2024 11:26 AM EDT [facility] Hematocrit 37.5 35.0 - 47.0 % LAB HEMETOLOGY METHOD 09/02/2024 11:26 AM EDT [facility] MCV 103.3(H) 79.0 - 98.0 FL LAB HEMETOLOGY METHOD 09/02/2024 11:26 AM EDT [facility] MCH 32.0 27.0 - 32.0 pcg LAB HEMETOLOGY METHOD 09/02/2024 11:26 AM EDT [facility] MCHC 30.9(L) 32.0 - 37.0 g/dL LAB HEMETOLOGY METHOD 09/02/2024 11:26 AM EDT [facility] RDW 16.5(H) 11.0 - 15.0 % LAB HEMETOLOGY METHOD [facility]02[facility]24 [facility] 261 130 - 400 K/mcL LAB HEMETOLOGY METHOD 09/02/2024 11:26 AM EDT [facility] MPV 10.7 7.0 - 11.0 FL LAB HEMETOLOGY METHOD 09/02/2024 11:26 AM EDT [facility] NRBC 0.0 <1.0 % LAB HEMETOLOG METHOD 09/02/2024 11:26 AM EDT [facility] NRBC Absolute 0.00 <0.10 K/mcL LAB HEMETOLOGY METHOD 09/02/2024 11:26 AM EDT [facility] Blood Venous blood specimen / Unknown Venipuncture / Unknown 09/02/2024 7:40 AM EDT 09/02/2024 10:50 AM EDT Torrey Kwok MD LAB BLOOD ORDERABLES Final Resul t [facility] [address] [place] [address], documented in this encounter Visit Diagnoses Diagnosis [...] documented as of this encounter Care Teams Automobile Washer Steam Relationship Specialty Start Date End Date Torrey Kwok MD [address] [facility] [address] [place] [address] PCP - General Geriatric Medicine 04/25/24 documented as of this encounter
--- OUTSIDE RECORDS SUMMARY | 2025-04-03 22:07 | XMS_ITS | Encounter Summary ---
Author Organization [facility] Address [address] [place] [phone] Care Team Providers Care Cart Attendant Name Role Phone Torrey Kwok MD Primary Care Provider [phone] Encounter Details Date Type Department Care Team (Late st Contact Info) Description 09/19/2024 Lab Requisition [facility] - Main Lab 299 [facility] [place] [address] Torrey Kwok MD [address] [place], [place] [id number] Type 2 diabetes mellitus with diabetic chronic [...] diabetes mellitus with diabetic chronic kidney disease ([facility], [facility] V28) Essential (primary) hypertension Heart failure, unspecified ([facility] V24, [facility] V28) Type 2 diabetes mellitus with unspecified diabetic retinopathy without macular edema ([facility] V24, [facility] V28) documented in this encounter Results * (ABNORMAL) Basic metabolic panel (09/22/2024 6:43 AM EDT) Sodium 126(L) 133 - 145 mmol/L LAB CHEMISTRY METHOD 09/22/2024 2:17 PM [facility] Potassium 4.6 3.5 - 5.5 mmol/L LAB CHEMISTRY METHOD 09/22/2024 2:17 PM [facility] Chloride 90(L) 96 - 110 mmol/L LAB CHEMISTRY METHOD 09/22/2024 2:17 PM [facility] CO2 23 21 - 32 mmol/L LAB CHEMISTRY METHOD 09/22/2024 2:17 PM [facility] Anion Gap 13(H) 3 - 11 LAB CHEMISTRY METHOD 09/22/2024 2:17 PM [facility] Glucose 602(HH) 70 - 100 mg/dL LAB CHEMISTRY METHOD 09/22/2024 2:17 PM [facility] BUN 49(H) 5 - 25 mg/dL LAB CHEMISTRY METHOD 09/22/2024 2:17 PM [facility] Creatinine 1.76(H) 0.50 - 1.10 mg/dL LAB CHEMISTRY METHOD 09/22/2024 2:17 PM [facility] eGFR 28(L) >=60 mL/min/1. 73m2 LAB CHEMISTRY METHOD 09/22/2024 2:17 PM [facility] Comment:Calculation based on the Chronic Kidney Disease Epidemiology Collaboration (CKD-EPI) equation refit without adjustment for race. BUN/Creatinine Ratio 27.8 LAB CHEMISTRY METHOD 09/22/2024 2:17 PM EDT [facility] Calcium 8.7 8.5 - 10.5 mg/dL LAB CHEMISTRY METHOD 09/22/2024 2:17 PM EDT [facility] Blood Venous blood specimen / Unknown Venipuncture / Unknown 09/22/2024 6:43 AM EDT 09/22/2024 11:59 AM EDT Torrey Kwok MD LAB BLOOD ORDERABLES Final Resul t [facility] [address] [place] [address], * (ABNORMAL) Complete blood count (09/22/2024 6:43 AM EDT) WBC 8.0 4.8 - 10.8 K/mcL LAB HEMETOLOGY METHOD 09/22/2024 1:20 PM EDT [facility] RBC 4.10 3.80 - 4.80 M/mcL LAB HEMETOLOGY METHOD 09/22/2024 1:20 PM EDT [facility] Hemoglobin 12.7 11.5 - 16.0 g/dL LAB HEMETOLOGY METHOD 09/22/2024 1:20 PM EDT [facility] Hematocrit 39.4 35.0 - 47.0 % LAB HEMETOLOGY METHOD 09/22/2024 1:20 PM EDT [facility] MCV 97.0 79.0 - 98.0 FL LAB HEMETOLOGY METHOD 09/22/2024 1:20 PM EDT [facility] MCH 31.3 27.0 - 32.0 pcg LAB HEMETOLOGY METHOD 09/22/2024 1:20 PM EDT [facility] MCHC 32.2 32.0 - 37.0 g/dL LAB HEMETOLOGY METHOD 09/22/2024 1:20 PM EDT [facility] RDW 17.1(H) 11.0 - 15.0 % LAB HEMETOLOGY METHOD 09/22/2024 1:20 PM EDT [facility] Platelets 282 130 - 400 K/mcL LAB HEMETOLOGY METHOD 09/22/2024 1:20 PM EDT [facility] MPV 11.3(H) 7.0 - 11.0 FL LAB HEMETOLOGY METHOD 09/22/2024 1:20 PM EDT [facility] NRBC 0.0 <1.0 % LAB HEMETOLOGY METHOD 09/22/2024 1:20 PM EDT [facility] NRBC Absolute 0.00 <0.10 K/mcL LAB HEMETOLOGY METHOD 09/22/2024 1:20 PM EDT [facility] Blood Venous blood specimen / Unknown Venipuncture / Unknown 09/22/2024 6:43 AM EDT 09/22/2024 11:59 AM EDT Torrey Kwok MD LAB BLOOD ORDERABLES Final Resul t [facility] [address] [place] [address], documented in this encounter Visit Diagnoses Diagnosis [...] documented as of this encounter Care Teams Cart Attendant Relationship Specialty Start Date End Date Torrey Kwok MD [address] [place] [address] [address] [place] [address] PCP - General Geriatric Medicine 04/25/24 documented as of this encounter
--- OUTSIDE RECORDS SUMMARY | 2025-04-03 22:07 | XMS_ITS | Encounter Summary ---
Author Organization [facility] Address [address] [place] [phone] Care Team Providers Care Certified Court/Medical Interpreter Name Role Phone Torrey Kwok MD Primary Care Provider [phone] Encounter Details Date Type Department Care Team (Late st Contact Info) Description 08/23/2024 Lab Requisition [facility] - Main Lab 299 [facility] [place] [address] Torrey Kwok MD [address] [place], [place] [id number] Type 2 diabetes mellitus with diabetic chronic [...] mmol/L LAB CHEMISTRY METHOD 08/25/2024 12:46 PM [facility] Potassium 4.0 3.5 - 5.5 mmol/L LAB CHEMISTRY METHOD 08/25/2024 12:46 PM [facility] Chloride 101 96 - 110 mmol/L LAB CHEMISTRY METHOD 08/25/2024 12:46 PM [facility] CO2 27 21 - 32 mmol/L LAB CHEMISTRY METHOD 08/25/2024 12:46 PM [facility] Anion Gap 7 3 - 11 LAB CHEMISTRY METHOD 08/25/2024 12:46 PM [facility] Glucose 278(H) 70 - 100 mg/dL LAB CHEMISTRY METHOD 08/25/2024 12:46 PM [facility] BUN 29(H) 5 - 25 mg/dL LAB CHEMISTRY METHOD 08/25/2024 12:46 PM [facility] Creatinine 1.11(H) 0.50 - 1.10 mg/dL LAB CHEMISTRY METHOD 08/25/2024 12:46 PM [facility] eGFR 48(L) >=60 mL/min/1. 73m2 LAB CHEMISTRY METHOD 08/25/2024 12:46 PM [facility] Comment:Calculation based on the Chronic Kidney Disease Epidemiology Collaboration (CKD-EPI) equation refit without adjustment for race. BUN/Creatinine Ratio 26.1 LAB CHEMISTRY METHOD 08/25/2024 12:46 PM EDT [facility] Calcium 8.8 8.5 - 10.5 mg/dL LAB CHEMISTRY METHOD 08/25/2024 12:46 PM EDT [facility] Blood Venous blood specimen / Unknown Venipuncture / Unknown 08/25/2024 8:58 AM EDT 08/25/2024 10:57 AM EDT us Torrey Kowk MD LAB BLOOD ORDERABLES Final Resul t [facility] [address] [place] [address], * (ABNORMAL) Complete blood count (08/25/2024 8:58 AM EDT) WBC 5.1 4.8 - 10.8 K/mcL LAB [facility]OLOGY [facility] RBC 3.70(L) 3.80 - 4.80 M/[facility] LAB HEMETOLOGY METHOD 08/25/2024 1:39 PM EDT [facility] Hemoglobin 11.8 11.5 - 16.0 g/dL LAB HEMETOLOGY METHOD 08/25/2024 1:39 PM EDT [facility] Hematocrit 37.4 35.0 - 47.0 % LAB HEMETOLOGY METHOD 08/25/2024 1:39 PM EDT [facility] MCV 100.0(H) 79.0 - 98.0 FL LAB HEMETOLOGY METHOD 08/25/2024 1:39 PM EDT [facility] MCH 31.6 27.0 - 32.0 pcg LAB HEMETOLOGY METHOD 08/25/2024 1:[facility] MCHC 31.6(L) 32.0 - 37.0 g/dL LAB HEMETOLOGY METHOD 08/25/2024 1:39 PM EDT [facility] RDW 15.9(H) 11.0 - 15.0 % LAB HEMETOLOGY METHOD 08/25/2024 1:39 PM EDT [facility] Platelets 270 130 - 400 K/mcL LAB HEMETOLOGY METHOD 08/25/2024 1:39 PM EDT [facility] MPV 10.8 7.0 - 11.0 FL LAB HEMETOLOGY METHOD 08/25/2024 1:39 PM EDT [facility] NRBC 0.0 <1.0 % LAB HEMETOLOGY METHOD 08/25/2024 1:39 PM EDT [facility] NRBC Absolute 0.00 <0.10 K/mcL LAB HEMETOLOGY METHOD 08/25/2024 1:39 PM EDT [facility] Blood Venous blood specimen / Unknown Venipuncture / Unknown 08/25/2024 8:58 AM EDT 08/25/2024 10:57 AM EDT us Torrey Kwok MD LAB BLOOD ORDERABLES Final Resul t [facility] [address] [place] [address], documented in this encounter Visit Diagnoses Diagnosis 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, [facility] V28) Essential (primary) hypertension Unspecified essential hypertension Heart failure, unspecified (CMS/HCC V24, [facility] V28) Heart failure, unspecified 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 difficile Rule-Out 03/12/2025 03/11/20252024 11:34 AM EST documented as of this encounter Care Teams Certified Court/Medical Interpreter Relationship Specialty Start Date End Date Torrey Kwok MD [address] [place] [address] [address] [place] [address] PCP - General Geriatric Medicine 04/25/24 documented as of this encounter
--- OUTSIDE RECORDS SUMMARY | 2025-04-03 22:07 | XMS_ITS | Encounter Summary ---
Author Organization [facility] Address [address] [place] [phone] Care Team Providers Care Sewing Machine Operator Floorperson Name Role Phone Torrey Kwok MD Primary Care Provider [phone] Encounter Details Date Type Department Care Team (Late st Contact Info) Description 06/07/2024 Lab Requisition [facility] - Main Lab 299 [facility] [place] [address] Torrey Kwok MD [address] [place], [place] [phone] Type 2 diabetes mellitus with diabetic chronic [...] (CMS/HCC) Essential (primary) hypertension Heart failure, unspecified (CMS/[facility]) 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) documented in this encounter Results * (ABNORMAL) Basic metabolic panel (06/09/2024 6:45 AM EST) Sodium 137 133 - 145 mmol/L LAB CHEMISTRY METHOD 06/09/2024 1:51 PM [facility] Potassium 3.8 3.5 - 5.5 mmol/L LAB CHEMISTRY METHOD 06/09/2024 1:51 PM [facility] Chloride 99 96 - 110 mmol/L LAB CHEMISTRY METHOD 06/09/2024 1:51 PM [facility] CO2 28 21 - 32 mmol/L LAB CHEMISTRY METHOD 06/09/2024 1:51 PM [facility] Anion Gap 10 3 - 11 LAB CHEMISTRY METHOD 06/09/2024 1:51 PM [facility] Glucose 135(H) 70 - 100 mg/dL LAB CHEMISTRY METHOD 06/09/2024 1:51 PM [facility] BUN 41(H) 5 - 25 mg/dL LAB CHEMISTRY METHOD 06/09/2024 1:51 PM [facility] Creatinine 0.99 0.50 - 1.10 mg/dL LAB CHEMISTRY METHOD 06/09/2024 1:51 PM [facility] eGFR 55(L) >=60 mL/min/1. 73m2 LAB CHEMISTRY METHOD 06/09/2024 1:51 PM [facility] Comment:Calculation based on the Chronic Kidney Disease Epidemiology Collaboration (CKD-EPI) equation refit without adjustment for race. BUN/Creatinine Ratio 41.4 LAB CHEMISTRY METHOD 06/09/2024 1:51 PM [facility] Calcium 9.2 8.5 - 10.5 mg/dL LAB CHEMISTRY METHOD 06/09/2024 1:51 PM [facility] Blood Venous blood specimen / Unknown Venipuncture / Unknown 06/09/2024 6:45 AM EST 06/09/2024 11:22 AM EST us Torrey Kwok MD LAB BLOOD ORDERABLES Final Resul t [facility] [address] [place] [address], * (ABNORMAL) Complete blood count (06/09/2024 6:45 AM EST) [facility] WBC 9.1 4.8 - 10.8 K/mcL LAB HEMETOLOGY METHOD 06/09/2024 1:30 PM [facility] RBC 3.50(L) 3.80 - 4.80 M/mcL LAB HEMETOLOGY METHOD 06/09/2024 1:30 PM [facility] Hemoglobin 11.2(L) 11.5 - 16.0 g/dL LAB HEMETOLOGY METHOD 06/09/2024 1:30 PM [facility] Hematocrit 35.6 35.0 - 47.0 % LAB HEMETOLOGY METHOD 06/09/2024 1:30 PM [facility] MCV 101.1(H) 79.0 - 98.0 FL LAB HEMETOLOGY METHOD 06/09/2024 1:30 PM [facility] MCH 31.8 27.0 - 32.0 pcg LAB HEMETOLOGY METHOD 06/09/2024 1:30 PM [facility] MCHC 31.5(L) 32.0 - 37.0 g/dL LAB HEMETOLOGY METHOD 06/09/2024 1:30 PM [facility] RDW 18.6(H) 11.0 - 15.0 % LAB HEMETOLOGY METHOD 06/09/2024 1:30 PM [facility] Platelets 346 130 - 400 K/mcL LAB HEMETOLOGY METHOD 06/09/2024 1:30 PM EST [facility] MPV 10.5 7.0 - 11.0 [...] Final Resul t [facility] [address] [place] [address], documented in this encounter Visit Diagnoses Diagnosis 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, CMS/HCC V28) Essential (primary) hypertension Unspecified essential hypertension Heart failure, unspecified (CMS/HCC V24, CMS/HCC V28) Heart failure, unspecified 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/HCC V24, [facility]/HCC V28) documented in this encounter Additional Health Concerns Infection Onset Date Last Indicated Resolved Time Respiratory Rule-Out 07/12/2024 07/11/2024 025 11:25 AM EDT C. difficile Rule-Out 03/12/2025 03/11/20252024 11:34 AM EST documented as of this encounter Care Teams Sewing Machine Operator Floorperson Relationship Specialty Start Date End Date Torrey Kwok MD [address] [place] [address] [address] [place] [address] PCP - General Geriatric Medicine 04/25/24 documented as of this encounter
--- OUTSIDE RECORDS SUMMARY | 2025-04-03 22:07 | XMS_ITS | Encounter Summary ---
Author Organization [facility] Address [address] [place] [phone] Care Team Providers Care Nurse Wound Care Name Role Phone Torrey Kwok MD Primary Care Provider [phone] Encounter Details Date Type Department Care Team (Late st Contact Info) Description 06/28/2024 Lab Requisition [facility] - Main Lab 299 [facility] [place] [address] Torrey Kwok MD [address] [place], [place] [phone] Type 2 diabetes mellitus with diabetic chronic [...] ([facility]) 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 ([facility]) documented in this encounter Results * (ABNORMAL) Basic metabolic panel (06/30/2024 6:10 AM EDT) Sodium 142 133 - 145 mmol/L LAB CHEMISTRY METHOD 06/30/2024 12:00 PM [facility] Potassium 4.1 3.5 - 5.5 mmol/L LAB CHEMISTRY METHOD 06/30/2024 12:00 PM [facility] Chloride 106 96 - 110 mmol/L LAB CHEMISTRY METHOD 06/30/2024 12:00 PM [facility] CO2 28 21 - 32 mmol/L LAB CHEMISTRY METHOD 06/30/2024 12:00 PM [facility] Anion Gap 8 3 - 11 LAB CHEMISTRY METHOD 06/30/2024 12:00 PM [facility] Glucose 159(H) 70 - 100 mg/dL LAB CHEMISTRY METHOD 06/30/2024 12:00 PM [facility] BUN 47(H) 5 - 25 mg/dL LAB CHEMISTRY METHOD 06/30/2024 12:00 PM [facility] Creatinine 1.11(H) 0.50 - 1.10 mg/dL LAB CHEMISTRY METHOD 06/30/2024 12:00 PM [facility] eGFR 48(L) >=60 mL/min/1. 73m2 LAB CHEMISTRY METHOD 06/30/2024 12:00 PM [facility] Comment:Calculation based on the Chronic Kidney Disease Epidemiology Collaboration (CKD-EPI) equation refit without adjustment for race. BUN/Creatinine Ratio 42.3 LAB CHEMISTRY METHOD 06/30/2024 12:00 PM [facility] Calcium 8.8 8.5 - 10.5 mg/dL LAB CHEMISTRY METHOD 06/30/2024 12:00 PM [facility] Blood Venous blood specimen / Unknown Venipuncture / Unknown 06/30/2024 6:10 AM EDT 06/30/2024 11:01 AM EDT Torrey Kwok MD LAB BLOOD ORDERABLES Final Resul t [facility] [address] [place] [address], * (ABNORMAL) Complete blood count (06/30/2024 6:10 AM EDT) WBC 6.0 4.8 - 10.8 K/mcL LAB HEMETOLOGY METHOD 06/30/2024 11:[address] [facility] RBC 2.90(L) 3.80 - 4.80 M/mcL LAB HEMETOLOGY METHOD 06/30/2024 11:[address] [facility] Hemoglobin 9.5(L) 11.5 - 16.0 g/dL LAB HEMETOLOGY METHOD 06/30/2024 11:[address] [facility] Hematocrit 29.9(L) 35.0 - 47.0 % LAB HEMETOLOGY METHOD 06/30/2024 11:[address] [facility] MCV 101.7(H) 79.0 - 98.0 FL LAB HEMETOLOGY METHOD 06/30/2024 11:[address] [facility] MCH 32.3(H) 27.0 - 32.0 pcg LAB HEMETOLOGY METHOD 06/30/2024 11:[address] [facility] MCHC 31.8(L) 32.0 - 37.0 g/dL LAB HEMETOLOGY METHOD 06/30/2024 11:[address] [facility] RDW 18.5(H) 11.0 - 15.0 % LAB HEMETOLOGY METHOD 06/30/2024 11:[address] [facility] Platelets 309 130 - 400 K/mcL LAB HEMETOLOGY METHOD 06/30/2024 11:[address] [facility] MPV 10.7 7.0 - 11.0 FL LAB HEMETOLOGY METHOD 06/30/2024 11:[address] [facility] NRBC 0.0 <1.0 % LAB HEMETOLOGY METHOD 06/30/2024 11:[address] [facility] NRBC Absolute 0.00 <0.10 K/mcL LAB HEMETOLOGY METHOD 06/30/2024 11:[address] [facility] Blood Venous blood specimen / Unknown Venipuncture / Unknown 06/30/2024 6:10 AM EDT 06/30/2024 11:01 AM EDT Torrey Kwok MD LAB BLOOD ORDERABLES Final Resul t 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 difficile Rule-Out 03/12/2025 03/11/20252024 11:34 AM EST documented as of this encounter Care Teams Nurse Wound Care Relationship Specialty Start Date End Date Torrey Kwok MD [address] [place] [address] PCP - General Geriatric Medicine 04/25/24 documented as of this encounter
--- OUTSIDE RECORDS SUMMARY | 2025-04-03 22:07 | XMS_ITS | Encounter Summary ---
Author Organization [facility] Address [address] [place] [phone] Care Team Providers Care Lumber Sales Supervisor Name Role Phone Torrey Kwok MD Primary Care Provider [phone] Encounter Details Date Type Department Care Team (Late st Contact Info) Description 01/16/2025 Lab Requisition [facility] - Main Lab 299 [facility] [place] [address] Torrey Kwok MD [address] [place], [place] [phone] Type 2 diabetes mellitus with diabetic chronic [...] [facility] V28) Essential (primary) hypertension Heart failure, unspecified ([facility] V24, [facility] V28) Type 2 diabetes mellitus with unspecified diabetic retinopathy without macular edema ([facility] V24, [facility] V28) documented in this encounter Results * (ABNORMAL) Complete blood count (01/19/2025 10:08 AM EDT) [facility] WBC 9.2 4.8 - 10.8 K/mcL LAB HEMETOLOGY METHOD 01/19/2025 11:28 AM [facility] RBC 3.60(L) 3.80 - 4.80 M/mcL LAB HEMETOLOGY METHOD 01/19/2025 11:28 AM [facility] Hemoglobin 11.3(L) 11.5 - 16.0 g/dL LAB HEMETOLOGY METHOD 01/19/2025 11:28 AM [facility] Hematocrit 34.7(L) 35.0 - 47.0 % LAB HEMETOLOGY METHOD 01/19/2025 11:28 AM [facility] MCV 97.2 79.0 - 98.0 FL LAB HEMETOLOGY METHOD 01/19/2025 11:28 AM [facility] MCH 31.7 27.0 - 32.0 pcg LAB HEMETOLOGY METHOD 01/19/2025 11:28 AM [facility] MCHC 32.6 32.0 - 37.0 g/dL LAB HEMETOLOGY METHOD 01/19/2025 11:28 AM [facility] RDW 15.9(H) 11.0 - 15.0 % LAB HEMETOLOGY METHOD 01/19/2025 11:28 AM [facility] Platelets 243 130 - 400 K/mcL LAB HEMETOLOGY METHOD 01/19/2025 11:28 AM EDT [facility] MPV 10.5 7.0 - 11.0 FL LAB HEMETOLOGY METHOD 01/19/2025 11:28 AM EDT [facility] NRBC 0.0 <1.0 % LAB HEMETOLOGY METHOD 01/19/2025 11:28 AM T [facility] NRBC Absolute 0.00 <0.10 K/mcL LAB HEMETOLOGY METHOD 01/19/2025 11:28 AM T [facility] Blood Venous blood specimen / Unknown Venipuncture / Unknown 01/19/2025 10:08 AM EDT 01/19/2025 10:56 AM EDT us Torrey Kwok MD LAB BLOOD ORDERABLES Final Resul t [facility] [address] [place] [address], * (ABNORMAL) Basic metabolic panel (01/19/2025 10:08 AM EDT) Sodium 135 133 - 145 mmol/L LAB CHEMISTRY METHOD 01/19/2025 2:00 PM [facility] Potassium 3.9 3.5 - 5.5 mmol/L LAB CHEMISTRY METHOD 01/19/2025 2:00 PM [facility] Chloride 99 96 - 110 mmol/L LAB CHEMISTRY METHOD 01/19/2025 2:00 PM [facility] CO2 27 21 - 32 mmol/L LAB CHEMISTRY METHOD 01/19/2025 2:00 PM [facility] Anion Gap 9 3 - 11 LAB CHEMISTRY METHOD 01/19/2025 2:00 PM [facility] Glucose 251(H) 70 - 100 mg/dL LAB CHEMISTRY METHOD 01/19/2025 2:00 PM [facility] BUN 30(H) 5 - 25 mg/dL LAB CHEMISTRY METHOD 01/19/2025 2:00 PM EDT [facility] Creatinine 1.24(H) 0.50 - 1.10 mg/dL LAB CHEMISTRY METHOD 01/19/2025 2:00 PM EDT [facility] eGFR 42(L) >=60 mL/min/1. 73m2 LAB CHEMISTRY METHOD 01/19/2025 2:00 PM EDT [facility] Comment:Calculation based on the Chronic Kidney Disease Epidemiology Collaboration (CKD-EPI) equation refit without adjustment for race. BUN/Creatinine Ratio 24.2 LAB CHEMISTRY METHOD 01/19/2025 2:00 PM EDT [facility] Calcium 9.2 8.5 - 10.5 mg/dL LAB CHEMISTRY METHOD 01/19/2025 2:00 PM EDT [facility] Blood Venous blood specimen / Unknown Venipuncture / Unknown 01/19/2025 10:08 AM EDT 01/19/2025 10:57 AM EDT us Torrey Kwok MD LAB BLOOD ORDERABLES Final Resul t [facility] [address] [place] [address], documented in this encounter Visit Diagnoses Diagnosis Type 2 diabetes mellitus with diabetic chronic kidney disease ([facility] V24, [facility] V28) Essential (primary) hypertension Unspecified essential hypertension Heart failure, unspecified ([facility] V24, [facility] V28) Heart failure, unspecified Type 2 diabetes mellitus with unspecified diabetic retinopathy without macular edema ([facility] V24, [facility] V28) documented in this encounter Additional Health Concerns Infection Onset Date Last Indicated Resolved Time C. difficile Rule-Out 03/12/2025 03/11/20252024 11:34 AM EST documented as of this encounter Care Teams Lumber Sales Supervisor Relationship Specialty Start Date End Date Torrey Kwok MD [address] [place] [address] [address] [place] [address] PCP - General Geriatric Medicine 04/25/24 documented as of this encounter
--- OUTSIDE RECORDS SUMMARY | 2025-04-03 22:07 | XMS_ITS | Encounter Summary ---
Author Organization [facility] Address [address] [place] [address] Care Team Providers Care Hull And Deck Remover Name Role Phone Torrey Kwok MD Primary Care Provider [phone] Encounter Details Date Type Department Care Team (Late st Contact Info) Description 04/30/2024 Lab Requisition [facility] - Main Lab [address] [facility] [place] [address] Torrey Kwok MD [address] [place], [place] [id number] Type 2 diabetes mellitus without complications (CMS/HCC [...] EST Type 2 diabetes mellitus without complications (CMS/[facility]) documented in this encounter Results * (ABNORMAL) Complete blood count (04/30/2024 6:31 AM EST) WBC 6.6 4.8 - 10.8 K/[facility] LAB HEMETOLOGY METHOD 04/30/2024 2:51 PM EST [facility] LAB RBC 3.40(L) 3.80 - 4.80 M/[facility] LAB HEMETOLOGY METHOD 04/30/2024 2:51 PM EST [facility] LAB Hemoglobin 10.7(L) 11.5 - 16.0 g/dL LAB HEMETOLOGY METHOD 04/30/2024 2:51 PM [facility] LAB Hematocrit 34.7(L) 35.0 - 47.0 % LAB HEMETOLOGY METHOD 04/30/2024 2:51 PM [facility] LAB MCV 101.5(H) 79.0 - 98.0 FL LAB HEMETOLOGY METHOD 04/30/2024 2:51 PM [facility] LAB MCH 31.3 27.0 - 32.0 pcg LAB HEMETOLOGY METHOD 04/30/2024 2:51 PM [facility] LAB MCHC 30.8(L) 32.0 - 37.0 g/dL LAB HEMETOLOGY METHOD 04/30/2024 2:51 PM [facility] LAB RDW 17.1(H) 11.0 - 15.0 % LAB HEMETOLOGY METHOD 04/30/2024 2:51 PM [facility] LAB Platelets 391 130 - 400 K/mcL LAB HEMETOLOGY METHOD 04/30/2024 2:51 PM [facility] LAB MPV 10.8 7.0 - 11.0 FL LAB HEMETOLOGY METHOD 04/30/2024 2:51 PM [facility] LAB NRBC 0.5 <1.0 % LAB HEMETOLOGY METHOD 04/30/2024 2:51 PM [facility] LAB NRBC Absolute 0.03 <0.10 K/mcL LAB HEMETOLOGY METHOD 04/30/2024 2:51 PM [facility] LAB Blood Venous blood specimen / Unknown Venipuncture / Unknown 04/30/2024 6:31 AM EST 04/30/2024 1:53 PM EST us Torrey Kwok MD LAB BLOOD ORDERABLES Final Resul t [facility] [address] [place] [address], documented in this encounter Visit Diagnoses Diagnosis Type 2 diabetes mellitus without complications (CMS/HCC V24, CMS/HCC V28) documented in this encounter Additional Health Concerns Infection Onset Date Last Indicated Resolved Time Respiratory Rule-Out 07/12/2024 07/11/2024 025 11:25 AM EDT C. difficile Rule-Out 03/12/2025 03/11/20252024 11:34 AM EST documented as of this encounter Care Teams Hull And Deck Remover Relationship Specialty Start Date End Date Torrey Kwok MD [address] [facility] [address] [place] [address] PCP - General Geriatric Medicine 04/25/24 documented as of this encounter
--- OUTSIDE RECORDS SUMMARY | 2025-04-03 22:07 | XMS_ITS | Encounter Summary ---
Author Organization [facility] Address [address] [place] [address] Care Team Providers Care Body Finisher Name Role Phone Torrey Kwok MD Primary Care Provider [phone] Encounter Details Date Type Department Care Team (Late st Contact Info) Description 09/05/2024 Lab Requisition [facility] - Main Lab [address] [facility] [place] [address] Torrey Kwok MD [address] [place], [place] [id number] Type 2 diabetes mellitus with diabetic chronic [...] with diabetic chronic kidney disease ([facility] V24, [facility] V28) Essential (primary) hypertension Heart failure, unspecified ([facility] V24, [facility] V28) 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 ([facility] V[facility], [facility] V28) documented in this encounter Results * (ABNORMAL) Complete blood count (09/08/2024 7:03 AM EDT) [facility] WBC 8.9 4.8 - 10.8 K/mcL LAB HEMETOLOGY METHOD 09/08/2024 11:16 AM [facility] LAB RBC 3.70(L) 3.80 - 4.80 M/mcL LAB HEMETOLOGY METHOD 09/08/2024 11:16 AM [facility] LAB Hemoglobin 11.6 11.5 - 16.0 g/dL LAB HEMETOLOGY METHOD 09/08/2024 11:16 AM [facility] LAB Hematocrit 35.5 35.0 - 47.0 % LAB HEMETOLOGY METHOD 09/08/2024 11:16 AM [facility] LAB MCV 97.0 79.0 - 98.0 FL LAB HEMETOLOGY METHOD 09/08/2024 11:16 AM [facility] LAB MCH 31.7 27.0 - 32.0 pcg LAB HEMETOLOGY METHOD 09/08/2024 11:16 AM [facility] LAB MCHC 32.7 32.0 - 37.0 g/dL LAB HEMETOLOGY METHOD 09/08/2024 11:16 AM [facility] LAB RDW 16.2(H) 11.0 - 15.0 % LAB HEMETOLOGY METHOD 09/08/2024 11:16 AM [facility] LAB Platelets 323 130 - 400 K/mcL LAB HEMETOLOGY METHOD 09/08/2024 11:16 AM [facility] LAB MPV 10.3 7.0 - 11.0 FL LAB HEMETOLOGY METHOD 09/08/2024 11:16 AM EDT [facility] LAB NRBC 0.0 <1.0 % [facility] 09/08/2024 11:16 AM EDT [facility] NRBC Absolute 0.00 <0.10 K/mcL LAB [facility] 09/08/2024 11:16 AM EDT [facility] Blood Venous blood specimen / Unknown Venipuncture / Unknown 09/08/2024 7:03 AM EDT 09/08/2024 10:18 AM EDT us Torrey Kwok MD LAB BLOOD ORDERABLES Final Resul t [facility] [address] [place] [address], * (ABNORMAL) Basic metabolic panel (09/08/2024 7:03 AM EDT) Sodium 137 133 - 145 mmol/L LAB CHEMISTRY METHOD 09/08/2024 11:08 AM [facility] LAB Potassium 3.9 3.5 - 5.5 mmol/L LAB CHEMISTRY METHOD 09/08/2024 11:08 AM [facility] LAB Chloride 99 96 - 110 mmol/L LAB CHEMISTRY METHOD 09/08/2024 11:08 AM [facility] LAB CO2 27 21 - 32 mmol/L LAB CHEMISTRY METHOD 09/08/2024 11:08 AM [facility] LAB Anion Gap 11 3 - 11 LAB CHEMISTRY METHOD 09/08/2024 11:08 AM [facility] LAB Glucose 330(H) 70 - 100 mg/dL LAB CHEMISTRY METHOD 09/08/2024 11:08 AM [facility] BUN 24 5 - 25 mg/dL LAB CHEMISTRY METHOD 09/08/2024 11:08 AM EDT [facility] Creatinine 1.27(H) 0.50 - 1.10 mg/dL LAB CHEMISTRY METHOD 09/08/2024 11:08 AM EDT [facility] LAB eGFR 41(L) >=60 mL/min/1. 73m2 LAB CHEMISTRY METHOD 09/08/2024 11:08 AM EDT [facility] LAB Comment:Calculation based on the Chronic Kidney Disease Epidemiology Collaboration (CKD-EPI) equation refit without adjustment for race. BUN/Creatinine Ratio 18.9 LAB CHEMISTRY METHOD 09/08/2024 11:08 AM EDT [facility] Calcium 9.0 8.5 - 10.5 mg/dL LAB CHEMISTRY METHOD 09/08/2024 11:08 AM EDT [facility] Blood Venous blood specimen / Unknown Venipuncture / Unknown 09/08/2024 7:03 AM EDT 09/08/2024 10:18 AM EDT Torrey Kwok MD LAB BLOOD ORDERABLES Final Resul t [facility] [address] [place] [address], documented in this encounter Visit Diagnoses Diagnosis Type 2 diabetes mellitus with diabetic chronic kidney disease ([facility] V24, [facility] V28) Essential (primary) hypertension Unspecified essential hypertension Heart failure, unspecified ([facility] V24, [facility] V28) Heart failure, unspecified 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 difficile Rule-Out 03/12/2025 03/11/20252024 11:34 AM EST documented as of this encounter Care Teams Body Finisher Relationship Specialty Start Date End Date Torrey Kwok MD [address] [place] [address] [address] [place] [address] PCP - General Geriatric Medicine 04/25/24 documented as of this encounter
--- OUTSIDE RECORDS SUMMARY | 2025-04-03 22:07 | XMS_ITS | Encounter Summary ---
Author Organization [facility] Address [address] [place] [address] Care Team Providers Care Restaurant Assistant Manager Name Role Phone Torrey Kwok MD Primary Care Provider [phone] Encounter Details Date Type Department Care Team (Late st Contact Info) Description 04/29/2024 Lab Requisition [facility] - Main Lab [address] [facility] [place] [address] Torrey Kwok MD [address] [place] [address] Dysuria Social History Tobacco Use Types Packs/Day [...] Escherichia coli(A) ANDRE 05/01/2024 11:04 AM EST [facility] Urine [...] Final Result [facility] [address] [place] [address], * Frost urine culture tube (04/28/2024 12:15 PM EST) Extra Tube Hold for add-ons. 04/29/2024 11:01 AM EST [facility] LAB Comment:Auto resulted. Urine Urine specimen obtained by clean catch procedure / Unknown 04/28/2024 12:15 PM EST 04/29/2024 9:53 AM EST us Torrey Kwok MD LAB URINE ORDERABLES Final Resul t [facility] [address] [place] [address], * (ABNORMAL) Urinalysis with reflex microscopic and culture (04/28/2024 12:15 PM EST) Specific [place] Urine 1.021 1.003 - 1.030 LAB URINALYSIS - AUTOMATED METHOD 04/29/2024 11:05 AM [facility] LAB pH, Urine 5.5 5.0 - 8.0 pH LAB URINALYSIS - AUTOMATED METHOD 04/29/2024 11:05 AM [facility] Leukocytes, Urine Trace(A) Negative LAB URINALYSIS - AUTOMATED METHOD 04/29/2024 11:05 AM [facility] Nitrite, Urine Negative Negative LAB URINALYSIS - AUTOMATED METHOD 04/29/2024 11:05 AM [facility] Protein, Urine Trace <=Trace mg/dL LAB URINALYSIS - AUTOMATED METHOD 04/29/2024 11:05 AM [facility] Glucose, Urine >=1000(A) Negative mg/dL LAB URINALYSIS - AUTOMATED METHOD 04/29/2024 11:05 AM [facility] Ketones, Urine 15(A) Negative mg/dL LAB URINALYSIS - AUTOMATED METHOD 04/29/2024 11:05 AM [facility] Urobilinogen , Urine 0.2 0.2 - 1.0 mg/dL LAB URINALYSIS - AUTOMATED METHOD 04/29/2024 11:05 AM [facility] Bilirubin, Urine Negative Negative LAB URINALYSIS - AUTOMATED METHOD 04/29/2024 11:05 AM [facility] Blood, Urine Negative Negative LAB URINALYSIS - AUTOMATED METHOD 04/29/2024 11:05 AM [facility] RBC, Urine 0.8 0 - 4 /HPF LAB URINALYSIS - AUTOMATED METHOD 04/29/2024 11:05 AM [facility] WBC, Urine 12.6(H) 0 - 4 /HPF LAB URINALYSIS - AUTOMATED METHOD 04/29/2024 11:05 AM [facility] Squamous Epithelial, Urine 10 0 - 60 /LPF LAB URINALYSIS - AUTOMATED METHOD 04/29/2024 11:05 AM [facility] Bacteria, Urine Many(A) Negative /HPF LAB URINALYSIS - AUTOMATED METHOD 04/29/2024 11:05 AM [facility] Hyaline Casts, Urine 0.4 0 - 3 /LPF LAB URINALYSIS - AUTOMATED METHOD 04/29/2024 11:05 AM [facility] Urine Urine specimen from urinary conduit / Unknown Non-blood Collection / Unknown 04/28/2024 12:15 PM EST 04/29/2024 9:53 AM EST Torrey Kwok MD LAB URINE ORDERABLES Final Resul t [facility] [address] [place] [address], documented in this encounter Visit Diagnoses Diagnosis Dysuria documented in this encounter Additional Health Concerns Infection Onset Date Last Indicated Resolved Time Respiratory Rule-Out 07/12/2024 07/11/2024 025 11:25 AM EDT C. difficile Rule-Out 03/12/2025 03/11/20252024 11:34 AM EST documented as of this encounter Care Teams Restaurant Assistant Manager Relationship Specialty Start Date End Date Torrey Kwok MD [address] [place] [address] [address] [place] [address] PCP - General Geriatric Medicine 04/25/24 documented as of this encounter
--- OUTSIDE RECORDS SUMMARY | 2025-04-03 22:07 | XMS_ITS | Encounter Summary ---
Author Organization [facility] Address [address] [place] [address] Care Team Providers Care Grain Commodity Manager Name Role Phone Torrey Kwok MD Primary Care Provider [phone] Encounter Details Date Type Department Care Team (Late st Contact Info) Description 06/02/2024 Lab Requisition [facility] - Main Lab [address] [facility] [place] [address] Torrey Kwok MD [address] [place], [place] [phone] Chronic diastolic (congestive) heart failure (CMS/HCC V24, [...] mmol/L LAB CHEMISTRY METHOD 06/02/2024 3:36 PM [facility] Potassium 3.5 3.5 - 5.5 mmol/L LAB CHEMISTRY METHOD 06/02/2024 3:36 PM [facility] Chloride 93(L) 96 - 110 mmol/L LAB CHEMISTRY METHOD 06/02/2024 3:36 PM [facility] CO2 29 21 - 32 mmol/L LAB CHEMISTRY METHOD 06/02/2024 3:36 PM [facility] Anion Gap 8 3 - 11 LAB CHEMISTRY METHOD 06/02/2024 3:36 PM [facility] Glucose 468(HH) 70 - 100 mg/dL LAB CHEMISTRY METHOD 06/02/2024 3:36 PM [facility] BUN 43(H) 5 - 25 mg/dL LAB CHEMISTRY METHOD 06/02/2024 3:36 PM [facility] Creatinine 1.43(H) 0.50 - 1.10 mg/dL LAB CHEMISTRY METHOD 06/02/2024 3:36 PM [facility] LAB eGFR 36(L) >=60 mL/min/1. 73m2 LAB CHEMISTRY METHOD 06/02/2024 3:36 PM [facility] Comment:Calculation based on the Chronic Kidney Disease Epidemiology Collaboration (CKD-EPI) equation refit without adjustment for race. BUN/Creatinine Ratio 30.1 LAB CHEMISTRY METHOD 06/02/2024 3:36 PM [facility] Calcium 8.7 8.5 - 10.5 mg/dL LAB CHEMISTRY METHOD 06/02/2024 3:36 PM [facility] Blood Venous blood specimen / Unknown Venipuncture / Unknown 06/02/2024 12:17 PM EST 06/02/2024 2:05 PM EST Torrey Kwok MD LAB BLOOD ORDERABLES Final Resul t [facility] [address] [place] [address], * (ABNORMAL) Complete blood count (06/02/2024 12:17 PM EST) [facility] WBC 9.0 4.8 - 10.8 K/mcL LAB HEMETOLOGY METHOD 06/02/2024 2:27 PM EST [facility] RBC 3.60(L) 3.80 - 4.80 M/mcL LAB HEMETOLOGY METHOD 06/02/2024 2:27 PM EST [facility] Hemoglobin 11.5 11.5 - 16.0 g/dL LAB HEMETOLOGY METHOD 06/02/2024 2:27 PM [facility] Hematocrit 35.4 35.0 - 47.0 % LAB HEMETOLOGY METHOD 06/02/2024 2:27 PM EST [facility] MCV 97.8 79.0 - 98.0 FL LAB HEMETOLOGY METHOD 06/02/2024 2:27 PM EST [facility] MCH 31.8 27.0 - 32.0 pcg LAB HEMETOLOGY METHOD 06/02/2024 2:27 PM EST [facility] MCHC 32.5 32.0 - 37.0 g/dL LAB HEMETOLOGY METHOD 06/02/2024 2:27 PM EST [facility] RDW 17.8(H) 11.0 - 15.0 % LAB HEMETOLOGY METHOD 06/02/2024 2:27 PM EST [facility] Platelets 342 130 - 400 K/mcL LAB HEMETOLOGY METHOD 06/02/2024 2:27 PM [facility] MPV 10.4 7.0 - 11.0 FL LAB HEMETOLOGY METHOD 06/02/2024 2:27 PM EST [facility] NRBC 0.0 <1.0 % LAB HEMETOLOGY METHOD 06/02/2024 2:27 PM EST [facility] NRBC Absolute 0.00 <0.10 K/mcL LAB HEMETOLOGY METHOD 06/02/2024 2:27 PM EST [facility] Blood Venous blood specimen / Unknown Venipuncture / Unknown 06/02/2024 12:17 PM EST 06/02/2024 2:05 PM EST Torrey Kwok MD LAB BLOOD ORDERABLES Final Resul t [facility] [address] [place] [address], documented in this encounter Visit Diagnoses Diagnosis Chronic diastolic (congestive) heart failure (CMS/HCC V24, CMS/[facility] V28) Chronic kidney disease, stage 3 unspecified (CMS/HCC V24, CMS/HCC V28) documented in this encounter Additional Health Concerns Infection Onset Date Last Indicated Resolved Time Respiratory Rule-Out 07/12/2024 07/11/2024 025 11:25 AM EDT C. difficile Rule-Out 03/12/2025 03/11/20252024 11:34 AM EST documented as of this encounter Care Teams Grain Commodity Manager Relationship Specialty Start Date End Date Torrey Kwok MD [address] [place] [address] [address] [place] [address] PCP - General Geriatric Medicine 04/25/24 documented as of this encounter
--- OUTSIDE RECORDS SUMMARY | 2025-04-03 22:07 | XMS_ITS | Encounter Summary ---
Author Organization [facility] Address [address] [place] [address] Care Team Providers Care Respiratory Technician Name Role Phone Torrey Kwok MD Primary Care Provider [phone] Encounter Details Date Type Department Care Team (Late st Contact Info) Description 05/16/[address] [facility] - Main Lab [address] [facility] [place] [address] Torrey Kwok MD [address] [place], [place] [phone] Heart failure, unspecified (CMS/HCC V24, CMS/HCC V28); [...] mmol/L LAB CHEMISTRY METHOD 05/19/2024 2:03 PM [facility] Potassium 3.7 3.5 - 5.5 mmol/L LAB CHEMISTRY METHOD 05/19/2024 2:03 PM [facility] Chloride 102 96 - 110 mmol/L LAB CHEMISTRY METHOD 05/19/2024 2:03 PM [facility] CO2 25 21 - 32 mmol/L LAB CHEMISTRY METHOD 05/19/2024 2:03 PM [facility] Anion Gap 10 3 - 11 LAB CHEMISTRY METHOD 05/19/2024 2:03 PM [facility] Glucose 92 70 - 100 mg/dL LAB CHEMISTRY METHOD 05/19/2024 2:03 PM [facility] BUN 23 5 - 25 mg/dL LAB CHEMISTRY METHOD 05/19/2024 2:03 PM [facility] Creatinine 0.97 0.50 - 1.10 mg/dL LAB CHEMISTRY METHOD 05/19/2024 2:03 PM [facility] eGFR 57(L) >=60 mL/min/1. 73m2 LAB CHEMISTRY METHOD 05/19/2024 2:03 PM [facility] Comment:Calculation based on the Chronic Kidney Disease Epidemiology Collaboration (CKD-EPI) equation refit without adjustment for race. BUN/Creatinine Ratio 23.7 LAB CHEMISTRY METHOD 05/19/2024 2:03 PM [facility] Calcium 8.8 8.5 - 10.5 mg/dL LAB CHEMISTRY METHOD 05/19/2024 2:03 PM [facility] Blood Venous blood specimen / Unknown Venipuncture / Unknown 05/19/2024 7:33 AM EST 05/19/2024 12:17 PM EST us Torrey Kwok MD LAB BLOOD ORDERABLES Final Resul t [facility] [address] [place] [address], * (ABNORMAL) Complete blood count (05/19/2024 7:33 AM EST) [facility] WBC 5.4 4.8 - 10.8 K/mcL LAB HEMETOLOGY METHOD 05/19/2024 1:26 PM EST [facility] RBC 3.50(L) 3.80 - 4.80 M/mcL LAB HEMETOLOGY METHOD 05/19/2024 1:26 PM [facility] Hemoglobin 11.1(L) 11.5 - 16.0 g/dL LAB HEMETOLOGY METHOD 05/19/2024 1:26 PM [facility] Hematocrit 35.7 35.0 - 47.0 % LAB HEMETOLOGY METHOD 05/19/2024 1:26 PM EST [facility] MCV 103.5(H) 79.0 - 98.0 FL LAB HEMETOLOGY METHOD 05/19/2024 1:26 PM [facility] MCH 32.2(H) 27.0 - 32.0 pcg LAB HEMETOLOGY METHOD 05/19/2024 1:26 PM [facility] MCHC 31.1(L) 32.0 - 37.0 g/dL LAB HEMETOLOGY METHOD 05/19/2024 1:26 PM EST [facility] RDW 20.0(H) 11.0 - 15.0 % LAB HEMETOLOGY METHOD 05/19/2024 1:26 PM [facility] Platelets 344 130 - 400 K/mcL LAB HEMETOLOGY METHOD 05/19/2024 1:26 PM [facility] MPV 10.8 7.0 - 11.0 FL LAB HEMETOLOGY METHOD 05/19/2024 1:26 PM [facility] NRBC 0.0 <1.0 % LAB HEMETOLOGY METHOD 05/19/2024 1:26 PM EST [facility] NRBC Absolute 0.00 <0.10 K/mcL LAB HEMETOLOGY METHOD 05/19/2024 1:26 PM EST [facility] Blood Venous blood specimen / Unknown Venipuncture / Unknown 05/19/2024 7:33 AM EST 05/19/2024 12:17 PM EST us Torrey Kwok MD LAB BLOOD ORDERABLES Final Resul t [facility] [address] [place] [address], documented in this encounter Visit Diagnoses Diagnosis Heart failure, unspecified (CMS/[facility] V24, CMS/[facility] V28) Heart failure, unspecified Essential (primary) hypertension Unspecified essential hypertension 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, CMS/[facility] V28) documented in this encounter Additional Health Concerns Infection Onset Date Last Indicated Resolved Time Respiratory Rule-Out 07/12/2024 07/11/2024 025 11:25 AM EDT C. difficile Rule-Out 03/12/2025 03/11/20252024 11:34 AM EST documented as of this encounter Care Teams Respiratory Technician Relationship Specialty Start Date End Date Torrey Kwok MD [address] [place] [address] [address] [place] [address] PCP - General Geriatric Medicine 04/25/24 documented as of this encounter
--- OUTSIDE RECORDS SUMMARY | 2025-04-03 22:07 | XMS_ITS | Encounter Summary ---
Author Organization [facility] Address [address] [place] [address] Care Team Providers Care Detention Worker Name Role Phone Torrey Kwok MD Primary Care Provider [phone] Encounter Details Date Type Department Care Team (Late st Contact Info) Description 05/06/2024 Lab Requisition [facility] [address] [place] [address] Torrey Kwok MD [address] [place], [place] [phone] Type 2 diabetes mellitus without complications (CMS/HCC [...] LAB CHEMISTRY METHOD 05/07/2024 1:13 PM EST [facility] Potassium 4.1 3.5 - 5.5 mmol/L [...] Resul t [facility] [address] [place] [address], * (ABNORMAL) Complete blood count (05/07/2024 8:42 AM EST) [facility] WBC 9.1 4.8 - 10.8 K/mcL LAB HEMETOLOGY METHOD 05/07/2024 12:40 PM [facility] RBC 3.90 3.80 - 4.80 M/mcL LAB HEMETOLOGY METHOD 05/07/2024 12:40 PM [facility] [...] K/mcL LAB HEMETOLOGY METHOD 05/07/2024 12:40 PM [facility] MPV 10.7 7.0 - 11.0 FL LAB HEMETOLOGY METHOD 05/07/2024 12:40 PM [facility] NRBC 0.0 <1.0 % LAB HEMETOLOGY METHOD 05/07/2024 12:40 PM [facility] NRBC Absolute 0.00 <0.10 K/mcL LAB HEMETOLOGY METHOD 05/07/2024 12:40 PM [facility] Blood Venous blood specimen / Unknown Venipuncture / Unknown 05/07/2024 8:42 AM EST 05/07/2024 11:51 AM EST Torrey Kwok MD LAB BLOOD ORDERABLES Final Resul t [facility] ([facility] [address] [place] [address], documented in this encounter Visit Diagnoses Diagnosis Type 2 diabetes mellitus without complications (CMS/HCC V24, CMS/HCC V28) documented in this encounter Additional Health Concerns Infection Onset Date Last Indicated Resolved Time Respiratory Rule-Out 07/12/2024 07/11/2024 025 11:25 AM EDT C. difficile Rule-Out 03/12/2025 03/11/20252024 11:34 AM EST documented as of this encounter Care Teams Detention Worker Relationship Specialty Start Date End Date Torrey Kwok MD [address] [place] [address] [address] [place] [address] PCP - General Geriatric Medicine 04/25/24 documented as of this encounter
--- OUTSIDE RECORDS SUMMARY | 2025-04-03 22:07 | XMS_ITS | Encounter Summary ---
Author Organization [facility] Address [address] [place] [phone] Care Team Providers Care Bridge Attacher Name Role Phone Torrey Kwok MD Primary Care Provider [phone] Encounter Details Date Type Department Care Team (Late st Contact Info) Description 01/24/2025 Lab Requisition [facility] - Main Lab 299 [facility] [place] [address] Torrey Kwok MD [address] [place], [place] [id number] Type 2 diabetes mellitus with diabetic chronic [...] with diabetic chronic kidney disease ([facility]/HCC V24, CMS/HCC V28) Essential (primary) hypertension [...] stimulating hormone (01/26/2025 7:10 AM EDT) Pathologist [facility] TSH 62.60(H) 0.40 - 4.00 mcIU/mL LAB CHEMISTRY METHOD 01/26/2025 9:39 PM EDT [facility] Blood Venous blood specimen / Unknown Venipuncture / Unknown 01/26/2025 7:10 AM EDT 01/26/2025 10:00 AM EDT us Torrey Kwok MD LAB BLOOD ORDERABLES Final Resul t [facility] [address] [place] [address], * (ABNORMAL) Complete blood count (01/26/2025 7:10 AM EDT) WBC 6.9 4.8 - 10.8 K/[facility] LAB HEMETOLOGY METHOD 01/26/2025 10:59 AM EDT [facility] RBC 3.50(L) 3.80 - 4.80 M/mcL LAB HEMETOLOGY METHOD 01/26/2025 10:59 AM EDT [facility] Hemoglobin 10.7(L) 11.5 - 16.0 g/dL LAB HEMETOLOGY METHOD 01/26/2025 10:59 AM [facility] Hematocrit 33.5(L) 35.0 - 47.0 % LAB HEMETOLOGY METHOD 01/26/2025 10:59 AM [facility] MCV 95.4 79.0 - 98.0 FL LAB HEMETOLOGY METHOD 01/26/2025 10:59 AM [facility] LAB MCH 30.5 27.0 - 32.0 pcg LAB HEMETOLOGY METHOD 01/26/2025 10:59 AM [facility] LAB MCHC 31.9(L) 32.0 - 37.0 g/dL LAB HEMETOLOGY METHOD 01/26/2025 10:59 AM [facility] RDW 16.6(H) 11.0 - 15.0 % LAB HEMETOLOGY METHOD 01/26/2025 10:59 AM [facility] Platelets 233 130 - 400 K/mcL LAB HEMETOLOGY METHOD 01/26/2025 10:59 AM [facility] MPV 11.3(H) 7.0 - 11.0 FL LAB HEMETOLOGY METHOD 01/26/2025 10:59 AM [facility] NRBC 0.0 <1.0 % LAB HEMETOLOGY METHOD 01/26/2025 10:59 AM [facility] LAB NRBC Absolute 0.00 <0.10 K/mcL LAB HEMETOLOGY METHOD 01/26/2025 10:59 AM [facility] Blood Venous blood specimen / Unknown Venipuncture / Unknown 01/26/2025 7:10 AM EDT 01/26/2025 9:55 AM EDT Torrey Kwok MD LAB BLOOD ORDERABLES Final Resul t [facility] [address] [place] [address], * (ABNORMAL) Basic metabolic panel (01/26/2025 7:10 AM EDT) Sodium 134 133 - 145 mmol/L LAB CHEMISTRY METHOD 01/26/2025 11:35 AM EDT [facility] Potassium 4.4 3.5 - 5.5 mmol/L LAB CHEMISTRY METHOD 01/26/2025 11:35 AM [facility] Chloride 97 96 - 110 mmol/L LAB CHEMISTRY METHOD 01/26/2025 11:35 AM [facility] CO2 29 21 - 32 mmol/L LAB CHEMISTRY METHOD 01/26/2025 11:35 AM [facility] Anion Gap 8 3 - 11 LAB CHEMISTRY METHOD 01/26/2025 11:35 AM [facility] Glucose 172(H) 70 - 100 mg/dL LAB CHEMISTRY METHOD 01/26/2025 11:35 AM [facility] BUN 47(H) 5 - 25 mg/dL LAB CHEMISTRY METHOD 01/26/2025 11:35 AM [facility] Creatinine 1.66(H) 0.50 - 1.10 mg/dL LAB CHEMISTRY METHOD 01/26/2025 11:35 AM [facility] eGFR 30(L) >=60 mL/min/1. 73m2 LAB CHEMISTRY METHOD 01/26/2025 11:35 AM [facility] LAB Comment:Calculation based on the Chronic Kidney Disease Epidemiology Collaboration (CKD-EPI) equation refit without adjustment for race. BUN/Creatinine Ratio 28.3 LAB CHEMISTRY METHOD 01/26/2025 11:35 AM [facility] Calcium 9.0 8.5 - 10.5 mg/dL LAB CHEMISTRY METHOD 01/26/2025 11:35 AM EDT [facility] Blood Venous blood specimen / Unknown Venipuncture / Unknown 01/26/2025 7:10 AM EDT 01/26/2025 10:00 AM EDT Torrey Kwok MD LAB BLOOD ORDERABLES Final Resul t [facility] [address] [place] [address], documented in this encounter Visit Diagnoses Diagnosis Type 2 diabetes mellitus with diabetic chronic kidney disease ([facility] V24, [facility] V28) Essential (primary) hypertension Unspecified essential hypertension Heart failure, unspecified ([facility] V24, [facility] V28) Heart failure, unspecified 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 difficile Rule-Out 03/12/2025 03/11/20252024 11:34 AM EST documented as of this encounter Care Teams Bridge Attacher Relationship Specialty Start Date End Date Torrey Kwok MD [address] [place] [address] [address] [place] [address] PCP - General Geriatric Medicine 04/25/24 documented as of this encounter
--- OUTSIDE RECORDS SUMMARY | 2025-04-03 22:07 | XMS_ITS | Encounter Summary ---
Author Organization [facility] Address [address] [place] [address] Care Team Providers Care Corporate Counsel Name Role Phone Torrey Kwok MD Primary Care Provider [phone] Encounter Details Date Type Department Care Team (Late st Contact Info) Description 03/13/[address] [facility] - Main Lab 299 [facility] [place] [address] Torrey Kwok MD [address] [place], [place] [phone] Restlessness and agitation; Urinary tract infection, site not specified Social [...] Associated Diagnosis Comments URINALYSIS WITH REFLEX MICROSCOPIC Routine 03/12/2025 9:00 PM EST Restlessness and agitation Urinary tract infection, site not specified URINALYSIS WITH REFLEX MICROSCOPIC Routine 03/12/2025 9:00 PM EST Restlessness and agitation Urinary tract infection, site not specified CULTURE URINE Routine 03/12/2025 9:00 PM EST Restlessness and agitation Urinary tract infection, site not specified documented in this encounter Results * (ABNORMAL) Urinalysis with reflex microscopic (03/12/2025 9:00 PM EST) Specific [place] Urine 1.012 1.003 - 1.030 LAB URINALYSIS - AUTOMATED METHOD 03/13/2025 11:30 AM [facility] pH, Urine 6.5 5.0 - 8.0 pH LAB URINALYSIS - AUTOMATED METHOD 03/13/2025 11:30 AM [facility] Leukocytes, Urine Small(A) Negative LAB URINALYSIS - AUTOMATED METHOD 03/13/2025 11:30 AM [facility] Nitrite, Urine Negative Negative LAB URINALYSIS - AUTOMATED METHOD 03/13/2025 11:30 AM [facility] Protein, Urine 30(A) <=Trace mg/dL LAB URINALYSIS - AUTOMATED METHOD 03/13/2025 11:30 AM [facility] Glucose, Urine 500(A) Negative mg/dL LAB URINALYSIS - AUTOMATED METHOD 03/13/2025 11:30 AM [facility] Ketones, Urine Negative Negative mg/dL LAB URINALYSIS - AUTOMATED METHOD 03/13/2025 11:30 AM [facility] Urobilinogen , Urine 0.2 0.2 - 1.0 mg/dL LAB URINALYSIS - AUTOMATED METHOD 03/13/2025 11:30 AM [facility] Bilirubin, Urine Negative Negative LAB URINALYSIS - AUTOMATED METHOD 03/13/2025 11:30 AM [facility] Blood, Urine Negative Negative LAB URINALYSIS - AUTOMATED METHOD 03/13/2025 11:30 AM [facility] RBC, Urine 2 0 - 4 /HPF 03/13/2025 11:30 AM [facility] WBC, Urine >100(H) 0 - 4 /HPF 03/13/2025 11:30 AM [facility] Squamous Epithelial, Urine 20 0 - 60 /LPF 03/13/2025 11:30 AM [facility] Bacteria, Urine Negative Negative /HPF 03/13/2025 11:30 AM EST [facility] Yeast, Urine Present(A) None /HPF 03/13/2025 11:30 AM EST [facility] Urine Urine specimen obtained by clean catch procedure / Unknown Non-blood Collection / Unknown 03/12/2025 9:00 PM EST 03/13/2025 11:00 AM EST us Torrey Kwok MD LAB URINE ORDERABLES Final Resul t Performing Organization Address City/[facility]/ZIP Co de Phone Number [facility] [address] [place] [address], [place] [phone] * Culture urine (03/12/2025 9:00 PM EST) Culture, Urine 10,000-49,000 CFU/mL Mixed bacterial morphotypes present suggestive of possible contamination during collection. Suggest appropriate recollection if clinically indicated. 03/14/2025 9:30 AM [facility] Urine Urine specimen obtained by clean catch procedure / Unknown Non-blood Collection / Unknown 03/12/2025 9:00 PM EST 03/13/2025 11:00 AM EST us Torrey Kwok MD LAB MICROBIOLOGY - GENERAL ORDER GENET Final Result Performing Organization Address City/[facility]/ZIP Co de Phone Number [facility] [address] [place] [address], [place] [phone] documented in this encounter Visit Diagnoses Diagnosis Restlessness and agitation Other signs and symptoms involving emotional state Urinary tract infection, site not specified documented in this encounter Care Teams Corporate Counsel Relationship Specialty Start Date End Date Torrey Kwok MD [address] [place] [address] [address] [place] [address] PCP - General Geriatric Medicine 04/25/24 documented as of this encounter
--- OUTSIDE RECORDS SUMMARY | 2025-04-03 22:07 | XMS_ITS | Encounter Summary ---
Author Organization [facility] Address [address] [place] [phone] Care Team Providers Care Hand Roller Name Role Phone Torrey Kwok MD Primary Care Provider [phone] Encounter Details Date Type Department Care Team (Late st Contact Info) Description 07/03/2024 Lab Requisition [facility] - Main Lab 299 [facility] [place] [address] Torrey Kwok MD [address] [place], [place] [phone] Chronic kidney disease, stage 3 unspecified (CMS/HCC [...] Hold for add-ons. 07/04/2024 12:01 PM EDT [facility] ([facility]) [facility] Comment:Auto resulted. Blood Venous blood specimen / Unknown Venipuncture / Unknown 07/04/2024 7:07 AM EDT 07/04/2024 10:40 AM EDT Torrey Kwok MD LAB BLOOD ORDERABLES Final Resul t [facility] ([facility]) [facility] [address] [place] [address], documented in this encounter Visit Diagnoses Diagnosis Chronic kidney disease, stage 3 unspecified ([facility] V24, [facility] V28) Type 2 diabetes mellitus with hyperglycemia (CMS/[facility] V24, [facility] V28) documented in this encounter Additional Health Concerns Infection Onset Date Last Indicated Resolved Time Respiratory Rule-Out 07/12/2024 07/11/2024 025 11:25 AM EDT C. difficile Rule-Out 03/12/2025 03/11/20252024 11:34 AM EST documented as of this encounter Care Teams Hand Roller Relationship Specialty Start Date End Date Torrey Kwok MD [address] [place] [address] [address] [place] [address] PCP - General Geriatric Medicine 04/25/24 documented as of this encounter
--- OUTSIDE RECORDS SUMMARY | 2025-04-03 22:07 | XMS_ITS | Encounter Summary ---
Author Organization [facility] Address [address] [place] [phone] Care Team Providers Care Charge Preparation Technician Name Role Phone Torrey Kwok MD Primary Care Provider [phone] Encounter Details Date Type Department Care Team (Late st Contact Info) Description 06/14/2024 Lab Requisition [facility] - Main Lab 299 [facility] [place] [address] Torrey Kwok MD [address] [place], [place] [phone] Type 2 diabetes mellitus with diabetic chronic [...] hypertension Heart failure, unspecified ([facility]) 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 ([facility]) documented in this encounter Results * (ABNORMAL) Basic metabolic panel (06/16/2024 5:17 AM EDT) Sodium 139 133 - 145 mmol/L LAB CHEMISTRY METHOD 06/16/2024 11:54 AM [facility] Potassium 4.2 3.5 - 5.5 mmol/L LAB CHEMISTRY METHOD 06/16/2024 11:54 AM [facility] Chloride 103 96 - 110 mmol/L LAB CHEMISTRY METHOD 06/16/2024 11:54 AM [facility] CO2 26 21 - 32 mmol/L LAB CHEMISTRY METHOD 06/16/2024 11:54 AM [facility] Anion Gap 10 3 - 11 LAB CHEMISTRY METHOD 06/16/2024 11:54 AM [facility] Glucose 319(H) 70 - 100 mg/dL LAB CHEMISTRY METHOD 06/16/2024 11:54 AM [facility] BUN 26(H) 5 - 25 mg/dL LAB CHEMISTRY METHOD 06/16/2024 11:54 AM [facility] Creatinine 0.97 0.50 - 1.10 mg/dL LAB CHEMISTRY METHOD 06/16/2024 11:54 AM [facility] eGFR 57(L) >=60 mL/min/1. 73m2 LAB CHEMISTRY METHOD 06/16/2024 11:54 AM [facility] LAB Comment:Calculation based on the Chronic Kidney Disease Epidemiology Collaboration (CKD-EPI) equation refit without adjustment for race. BUN/Creatinine Ratio 26.8 LAB CHEMISTRY METHOD 06/16/2024 11:54 AM [facility] Calcium 8.8 8.5 - 10.5 mg/dL LAB CHEMISTRY METHOD 06/16/2024 11:54 AM [facility] Blood Venous blood specimen / Unknown Venipuncture / Unknown 06/16/2024 5:17 AM EDT 06/16/2024 10:33 AM EDT Torrey Kwok MD LAB BLOOD ORDERABLES Final Resul t [facility] [address] [place] [address], * (ABNORMAL) Complete blood count (06/16/2024 5:17 AM EDT) WBC 6.8 4.8 - 10.8 K/mcL LAB HEMETOLOGY METHOD 06/16/2024 11:13 AM EDT [facility] RBC 3.40(L) 3.80 - 4.80 M/mcL LAB HEMETOLOGY METHOD 06/16/2024 11:13 AM [facility] Hemoglobin 10.9(L) 11.5 - 16.0 g/dL LAB HEMETOLOGY METHOD 06/16/2024 11:13 AM [facility] Hematocrit 34.2(L) 35.0 - 47.0 % LAB HEMETOLOGY METHOD 06/16/2024 11:13 AM [facility] MCV 101.2(H) 79.0 - 98.0 FL LAB HEMETOLOGY METHOD 06/16/2024 11:13 AM EDT [facility] MCH 32.2(H) 27.0 - 32.0 pcg LAB HEMETOLOGY METHOD 06/16/2024 11:13 AM [facility] MCHC 31.9(L) 32.0 - 37.0 g/dL LAB HEMETOLOGY METHOD 06/16/2024 11:13 AM [facility] RDW 18.4(H) 11.0 - 15.0 % LAB HEMETOLOGY METHOD 06/16/2024 11:13 AM EDT [facility] Platelets 326 130 - 400 K/mcL LAB HEMETOLOGY METHOD 06/16/2024 11:13 AM EDT [facility] MPV 10.5 7.0 - 11.0 FL LAB HEMETOLOGY METHOD 06/16/2024 11:13 AM EDT [facility] NRBC 0.0 <1.0 % LAB HEMETOLOGY METHOD 06/16/2024 11:13 AM EDT [facility] NRBC Absolute 0.00 <0.10 K/mcL LAB HEMETOLOGY METHOD 06/16/2024 11:13 AM EDT [facility] Blood Venous blood specimen / Unknown Venipuncture / Unknown 06/16/2024 5:17 AM EDT 06/16/2024 10:36 AM EDT Torrey Kwok MD LAB BLOOD ORDERABLES Final Resul t [facility] [address] [place] [address], documented in this encounter Visit Diagnoses Diagnosis 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, [facility] V28) Essential (primary) hypertension Unspecified essential hypertension Heart failure, unspecified (CMS/HCC V24, [facility] V28) Heart failure, unspecified 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 difficile Rule-Out 03/12/2025 03/11/20252024 11:34 AM EST documented as of this encounter Care Teams Charge Preparation Technician Relationship Specialty Start Date End Date Torrey Kwok MD [address] [place] [address] PCP - General Geriatric Medicine 04/25/24 documented as of this encounter
--- OUTSIDE RECORDS SUMMARY | 2025-04-03 22:07 | XMS_ITS | Encounter Summary ---
Author Organization [facility] Address [address] [place] [address] Care Team Providers Care Molasses Preparer Name Role Phone Torrey Kwok MD Primary Care Provider [phone] Encounter Details Date Type Department Care Team (Late st Contact Info) Description 04/03/2025 Lab Requisition [facility] - Main Lab 299 [facility] [employer] [address] Torrey Kwok MD [address] [place], [place] [phone] Urinary tract infection, site not specified Social [...] Name Type Priority Associated Diagnoses Date /Time Culture urine Microbiology Routine Urinary tract infection, site not specified 04/03/2025 4:00 AM EST documented as of this encounter Procedures Procedure Name Priority Date/Time Associated Diagnosis Comments URINALYSIS WITH REFLEX MICROSCOPIC AND CULTURE Routine 04/03/2025 4:00 AM EST Urinary tract infection, site not specified FROST URINE CULTURE TUBE Routine 04/03/2025 4:00 AM EST Urinary tract infection, site not specified URINALYSIS WITH REFLEX MICROSCOPIC AND CULTURE Routine 04/03/2025 4:00 AM EST Urinary tract infection, site not specified documented in this encounter Results * (ABNORMAL) Urinalysis with reflex microscopic and culture (04/03/2025 4:00 AM EST) [facility] Specific [place] Urine 1.014 1.003 - 1.030 LAB URINALYSIS - AUTOMATED METHOD 04/03/2025 9:41 AM [facility] pH, Urine 6.5 5.0 - 8.0 pH LAB URINALYSIS - AUTOMATED METHOD 04/03/2025 9:41 AM [facility] Leukocytes, Urine Moderate(A) Negative LAB URINALYSIS - AUTOMATED METHOD 04/03/2025 9:41 AM [facility] Nitrite, Urine Negative Negative LAB URINALYSIS - AUTOMATED METHOD 04/03/2025 9:41 AM [facility] Protein, Urine Trace <=Trace mg/dL LAB URINALYSIS - AUTOMATED METHOD 04/03/2025 9:41 AM [facility] Glucose, Urine Negative Negative mg/dL LAB URINALYSIS - AUTOMATED METHOD 04/03/2025 9:41 AM [facility] Ketones, Urine Negative Negative mg/dL LAB URINALYSIS - AUTOMATED METHOD 04/03/2025 9:41 AM [facility] Urobilinogen , Urine 0.2 0.2 - 1.0 mg/dL LAB URINALYSIS - AUTOMATED METHOD 04/03/2025 9:41 AM [facility] Bilirubin, Urine Negative Negative LAB URINALYSIS - AUTOMATED METHOD 04/03/2025 9:41 AM [facility] Blood, Urine Negative Negative LAB URINALYSIS - AUTOMATED METHOD 04/03/2025 9:41 AM [facility] RBC, Urine 2 0 - 4 /HPF 04/03/2025 9:41 AM [facility] WBC, Urine >100(H) 0 - 4 /HPF 04/03/2025 9:41 AM [facility] Squamous Epithelial, Urine 60 0 - 60 /LPF 04/03/2025 9:41 AM [facility] Bacteria, Urine Few(A) Negative /HPF 04/03/2025 9:41 AM EST [facility] Urine Urine specimen obtained by clean catch procedure / Unknown Non-blood Collection / Unknown 04/03/2025 4:00 AM EST 04/03/2025 9:06 AM EST Torrey Kwok MD LAB URINE ORDERABLES Final Resul t Performing Organization Address City/[facility]/ZIP Co de Phone Number [facility] [address] [place] [address], [place] [phone] * [place] urine culture tube (04/03/2025 4:00 AM EST) Extra Tube Hold for add-ons. 04/03/2025 11:01 AM EST [facility] LAB Comment:Auto resulted. Urine Urine specimen obtained by clean catch procedure / Unknown Non-blood Collection / Unknown 04/03/2025 4:00 AM EST 04/03/2025 9:06 AM EST Torrey Kwok MD LAB URINE ORDERABLES Final Resul t Performing Organization Address City/[facility]/ZIP Co de Phone Number [facility] [address] [place] [address], [place] [phone] documented in this encounter Visit Diagnoses Diagnosis Urinary tract infection, site not specified documented in this encounter Care Teams Molasses Preparer Relationship Specialty Start Date End Date Torrey Kwok MD [address] [place] [address] [address] [place] [address] PCP - General Geriatric Medicine 04/25/24 documented as of this encounter
--- OUTSIDE RECORDS SUMMARY | 2025-04-03 22:07 | XMS_ITS | Encounter Summary ---
Author Organization [facility] Address [address] [place] [phone] Care Team Providers Care Party Plan Salesperson Name Role Phone Torrey Kwok MD Primary Care Provider [phone] Encounter Details Date Type Department Care Team (Late st Contact Info) Description 01/10/2025 Lab Requisition [facility] - Main Lab 299 [facility] [place] [address] Torrey Kwok MD [address] [place], [place] [address] Type 2 diabetes mellitus with diabetic chronic [...] documented as of this encounter Care Teams Party Plan Salesperson Relationship Specialty Start Date End Date Torrey Kwok MD [address] [place] [address] [address] [place] [address] PCP - General Geriatric Medicine 04/25/24 documented as of this encounter
--- OUTSIDE RECORDS SUMMARY | 2025-04-03 22:07 | XMS_ITS | Encounter Summary ---
Author Organization [facility] Address [address] [place] [id number] Care Team Providers Care Sourcing Manager Name Role Phone Torrey Kwok MD Primary Care Provider [phone] Encounter Details Date Type Department Care Team (Late st Contact Info) Description 07/05/2024 Lab Requisition [facility] - Main Lab 299 [facility] [place] [address] Torrey Kwok MD [address] [place], [place] [id number] Type 2 diabetes mellitus with diabetic chronic [...] (CMS/HCC) Essential (primary) hypertension Heart failure, unspecified ([facility]) 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 ([facility]) documented in this encounter Results * (ABNORMAL) Basic metabolic panel (07/07/2024 5:35 AM EDT) Sodium 142 133 - 145 mmol/L LAB CHEMISTRY METHOD 07/07/2024 12:00 PM [facility] Potassium 4.0 3.5 - 5.5 mmol/L LAB CHEMISTRY METHOD 07/07/2024 12:00 PM [facility] Chloride 107 96 - 110 mmol/L LAB CHEMISTRY METHOD 07/07/2024 12:00 PM [facility] CO2 27 21 - 32 mmol/L LAB CHEMISTRY METHOD 07/07/2024 12:00 PM [facility] Anion Gap 8 3 - 11 LAB CHEMISTRY METHOD 07/07/2024 12:00 PM [facility] Glucose 86 70 - 100 mg/dL LAB CHEMISTRY METHOD 07/07/2024 12:00 PM [facility] BUN 37(H) 5 - 25 mg/dL LAB CHEMISTRY METHOD 07/07/2024 12:00 PM [facility] Creatinine 1.13(H) 0.50 - 1.10 mg/dL LAB CHEMISTRY METHOD 07/07/2024 12:00 PM [facility] eGFR 47(L) >=60 mL/min/1. 73m2 LAB CHEMISTRY METHOD 07/07/2024 12:00 PM [facility] Comment:Calculation based on the Chronic Kidney Disease Epidemiology Collaboration (CKD-EPI) equation refit without adjustment for race. BUN/Creatinine Ratio 32.7 LAB CHEMISTRY METHOD 07/07/2024 12:00 PM [facility] Calcium 8.8 8.5 - 10.5 mg/dL LAB CHEMISTRY METHOD 07/07/2024 12:00 PM [facility] Blood Venous blood specimen / Unknown Venipuncture / Unknown 07/07/2024 5:35 AM EDT 07/07/2024 10:37 AM EDT Torrey Kwok MD LAB BLOOD ORDERABLES Final Resul t [facility] [address] [place] [address], * (ABNORMAL) Complete blood count (07/07/2024 5:35 AM EDT) WBC 6.3 4.8 - 10.8 K/mcL LAB HEMETOLOGY METHOD 07/07/2024 11:43 AM EDT [facility] RBC 2.90(L) 3.80 - 4.80 M/mcL LAB HEMETOLOGY METHOD 07/07/2024 11:43 AM EDT [facility] Hemoglobin 9.5(L) 11.5 - 16.0 g/dL LAB HEMETOLOGY METHOD 07/07/2024 11:43 AM EDT [facility] Hematocrit 30.2(L) 35.0 - 47.0 % LAB HEMETOLOGY METHOD 07/07/2024 11:43 AM [facility] MCV 103.4(H) 79.0 - 98.0 FL LAB HEMETOLOGY METHOD 07/07/2024 11:43 AM EDT [facility] MCH 32.5(H) 27.0 - 32.0 pcg LAB HEMETOLOGY METHOD 07/07/2024 11:43 AM EDT [facility] MCHC 31.5(L) 32.0 - 37.0 g/dL LAB HEMETOLOGY METHOD 07/07/2024 11:43 AM [facility] RDW 18.3(H) [...] t [facility] [address] [place] [address], documented in this encounter Visit Diagnoses Diagnosis 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, [facility] V28) Essential (primary) hypertension Unspecified essential hypertension Heart failure, unspecified (CMS/HCC V24, [facility] V28) Heart failure, unspecified 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 difficile Rule-Out 03/12/2025 03/11/20252024 11:34 AM EST documented as of this encounter Care Teams Sourcing Manager Relationship Specialty Start Date End Date Torrey Kwok MD [address] [place] [address] PCP - General Geriatric Medicine 04/25/24 documented as of this encounter
--- OUTSIDE RECORDS SUMMARY | 2025-04-03 22:07 | XMS_ITS | Encounter Summary ---
Author Organization [facility] Address [address] [place] [phone] Care Team Providers Care Lumber Racker Name Role Phone Torrey Kwok MD Primary Care Provider [phone] Encounter Details Date Type Department Care Team (Late st Contact Info) Description 05/24/2024 Lab Requisition [facility] - Main Lab 299 [facility] [place] [address] Torrey Kwok MD [address] [place], [place] [id number] Type 2 diabetes mellitus with diabetic chronic [...] mmol/L LAB CHEMISTRY METHOD 05/26/2024 11:56 AM [facility] Potassium 3.5 3.5 - 5.5 mmol/L LAB CHEMISTRY METHOD 05/26/2024 11:56 AM [facility] Chloride 101 96 - 110 mmol/L LAB CHEMISTRY METHOD 05/26/2024 11:56 AM [facility] CO2 26 21 - 32 mmol/L LAB CHEMISTRY METHOD 05/26/2024 11:56 AM [facility] Anion Gap 14(H) 3 - 11 LAB CHEMISTRY METHOD 05/26/2024 11:56 AM [facility] Glucose 200(H) 70 - 100 mg/dL LAB CHEMISTRY METHOD 05/26/2024 11:56 AM [facility] BUN 35(H) 5 - 25 mg/dL LAB CHEMISTRY METHOD 05/26/2024 11:56 AM [facility] Creatinine 1.16(H) 0.50 - 1.10 mg/dL LAB CHEMISTRY METHOD 05/26/2024 11:[address] [facility] eGFR 46(L) >=60 mL/min/1. 73m2 LAB CHEMISTRY METHOD 05/26/2024 11:56 AM [facility] Comment:Calculation based on the Chronic Kidney Disease Epidemiology Collaboration (CKD-EPI) equation refit without adjustment for race. BUN/Creatinine Ratio 30.2 LAB CHEMISTRY METHOD 05/26/2024 11:56 AM [facility] Calcium 8.9 8.5 - 10.5 mg/dL LAB CHEMISTRY METHOD 05/26/2024 11:56 AM [facility] AST (SGOT) 21 10 - 42 unit/L LAB CHEMISTRY METHOD 05/26/2024 11:56 AM [facility] ALT (SGPT) 20 10 - 60 unit/L LAB CHEMISTRY METHOD 05/26/2024 11:56 AM [facility] Alkaline Phosphatase 146(H) 42 - 121 unit/L LAB CHEMISTRY METHOD 05/26/2024 11:56 AM [facility] Total Protein 6.8 6.0 - 8.0 g/dL LAB CHEMISTRY METHOD 05/26/2024 11:56 AM [facility] Albumin 3.6 3.2 - 5.0 g/dL LAB CHEMISTRY METHOD 05/26/2024 11:56 AM [facility] Total Bilirubin 0.6 0.0 - 1.4 mg/dL LAB CHEMISTRY METHOD 05/26/2024 11:56 AM [facility] Blood Venous blood specimen / Unknown Venipuncture / Unknown 05/26/2024 5:59 AM EST 05/26/2024 11:00 AM EST us Torrey Kwok MD LAB BLOOD ORDERABLES Final Resul t [facility] [address] [place] [address], * (ABNORMAL) B-type natriuretic peptide (05/26/2024 5:59 AM EST) BNP 320(H) <=100 pcg/mL LAB CHEMISTRY METHOD 05/26/2024 1:35 PM [facility] Blood Venous blood specimen / Unknown Venipuncture / Unknown 05/26/2024 5:59 AM EST 05/26/2024 11:00 AM EST us Torrey Kwok MD LAB BLOOD ORDERABLES Final Resul t [facility] [address] [place] [address], * (ABNORMAL) Basic metabolic panel (05/26/2024 5:59 AM EST) Pathologist [facility] Sodium 141 133 - 145 mmol/L LAB CHEMISTRY METHOD 05/26/2024 11:50 AM [facility] Potassium 3.5 3.5 - 5.5 mmol/L LAB CHEMISTRY METHOD 05/26/2024 11:50 AM [facility] Chloride 101 96 - 110 mmol/L LAB CHEMISTRY METHOD 05/26/2024 11:50 AM [facility] CO2 26 21 - 32 mmol/L LAB CHEMISTRY METHOD 05/26/2024 11:50 AM [facility] Anion Gap 14(H) 3 - 11 LAB CHEMISTRY METHOD 05/26/2024 11:50 AM [facility] Glucose 200(H) 70 - 100 mg/dL LAB CHEMISTRY METHOD 05/26/2024 11:50 AM [facility] BUN 35(H) 5 - 25 mg/dL LAB CHEMISTRY METHOD 05/26/2024 11:50 AM [facility] Creatinine 1.16(H) 0.50 - 1.10 mg/dL LAB CHEMISTRY METHOD 05/26/2024 11:50 AM [facility] eGFR 46(L) >=60 mL/min/1. 73m2 LAB CHEMISTRY METHOD 05/26/2024 11:[address] [facility] Comment:Calculation based on the Chronic Kidney Disease Epidemiology Collaboration (CKD-EPI) equation refit without adjustment for race. BUN/Creatinine Ratio 30.2 LAB CHEMISTRY METHOD 05/26/2024 11:[address] [facility] Calcium 8.9 8.5 - 10.5 mg/dL LAB CHEMISTRY METHOD 05/26/2024 11:50 AM [facility] Blood Venous blood specimen / Unknown Venipuncture / Unknown 05/26/2024 5:59 AM EST 05/26/2024 11:00 AM EST Torrey Kwok MD LAB BLOOD ORDERABLES Final Resul t [facility] [address] [place] [address], * (ABNORMAL) Complete blood count (05/26/2024 5:59 AM EST) WBC 10.4 4.8 - 10.8 K/mcL LAB HEMETOLOGY METHOD 05/26/2024 11:12 AM [facility] RBC 3.30(L) 3.80 - 4.80 M/mcL LAB HEMETOLOGY METHOD 05/26/2024 11:12 AM [facility] Hemoglobin 10.7(L) 11.5 - 16.0 g/dL LAB HEMETOLOGY METHOD 05/26/2024 11:12 AM [facility] Hematocrit 34.0(L) 35.0 - 47.0 % LAB HEMETOLOGY METHOD 05/26/2024 11:12 AM [facility] MCV 102.1(H) 79.0 - 98.0 FL LAB HEMETOLOGY METHOD 05/26/2024 11:12 AM [facility] MCH 32.1(H) 27.0 - 32.0 pcg LAB HEMETOLOGY METHOD 05/26/2024 11:12 AM [facility] MCHC 31.5(L) 32.0 - 37.0 g/dL LAB HEMETOLOGY METHOD 05/26/2024 11:12 AM [facility] RDW 19.8(H) 11.0 - 15.0 % LAB HEMETOLOGY METHOD 05/26/2024 11:12 AM [facility] Platelets 418(H) 130 - 400 K/mcL LAB HEMETOLOGY METHOD 05/26/2024 11:12 AM [facility] MPV 10.0 7.0 - 11.0 FL LAB HEMETOLOGY METHOD 05/26/2024 11:12 AM [facility] NRBC 0.0 <1.0 % LAB HEMETOLOGY METHOD 05/26/2024 11:12 AM [facility] NRBC Absolute 0.00 <0.10 K/mcL LAB HEMETOLOGY METHOD 05/26/2024 11:12 AM [facility] Blood Venous blood specimen / Unknown Venipuncture / Unknown 05/26/2024 5:59 AM EST 05/26/2024 11:00 AM EST us Torrey Kwok MD LAB BLOOD ORDERABLES Final Resul t 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 difficile Rule-Out 03/12/2025 03/11/20252024 11:34 AM EST documented as of this encounter Care Teams Lumber Racker Relationship Specialty Start Date End Date Torrey Kwok MD [address] [place] [address] [address] [place] [address] PCP - General Geriatric Medicine 04/25/24 documented as of this encounter
--- OUTSIDE RECORDS SUMMARY | 2025-04-03 22:07 | XMS_ITS | Encounter Summary ---
Author Organization [facility] Address [address] [place] [address] Care Team Providers Care Fence Supervisor Name Role Phone Torrey Kwok MD Primary Care Provider [phone] Encounter Details Date Type Department Care Team (Late st Contact Info) Description 03/12/2025 Lab Requisition [facility] - Main Lab 299 [facility] [place] [address] Torrey Kwok MD [address] [place] [address] Diarrhea, unspecified Social History Tobacco Use Types Packs/Day [...] Procedure Name Priority Date/Time Associated Diagnosis Comments CLOSTRIDIUM DIFFICILE PCR Routine 03/11/2025 10:35 AM EST Diarrhea, unspecified CLOSTRIDIUM DIFFICILE TOXIN Routine 03/11/2025 10:35 AM EST Diarrhea, unspecified documented in this encounter Results * Clostridium difficile molecular study (03/11/2025 10:35 AM EST) Clostridium difficile PCR Negative Negative LAB MICROBIOLOGY METHOD 03/12/2025 12:23 PM EST [facility] Comment:NEGATIVE FOR TOXIN P RODUCING CLOSTRIDIOIDES DIFFICILE, NO ADDITIONAL TESTING IS NECESSARY. Stool Rectum structure / Unknown 03/11/2025 10:35 AM EST 03/12/2025 11:34 AM EST Torrey Kwok MD LAB MICROBIOLOGY - GENERAL ORDER GENET Final Result Performing Organization Address City/[facility]/ZIP Co de Phone Number [facility] [address] [place] [address], [place] [phone] * Clostridium difficile toxin (03/11/2025 10:35 AM EST) C difficile Toxins A+B, EIA 03/12/2025 11:34 AM EST [facility] Comment:Refer to C. difficil e PCR assay for results. Stool Rectum structure / Unknown 03/11/2025 10:35 AM EST 03/12/2025 10:31 AM EST Torrey Kwok MD LAB MICROBIOLOGY - GENERAL ORDER GENET Final Result Performing Organization Address [facility] Co de Phone Number [facility] [address] [place] [address], [place] [phone] documented in this encounter Visit Diagnoses Diagnosis Diarrhea, unspecified documented in this encounter Additional Health Concerns Infection Onset Date Last Indicated Resolved Time C. difficile Rule-Out 03/12/2025 03/11/20252024 11:34 AM EST documented as of this encounter Care Teams Fence Supervisor Relationship Specialty Start Date End Date Torrey Kwok MD [address] [place] [address] [address] [place] [address] PCP - General Geriatric Medicine 04/25/24 documented as of this encounter
--- OUTSIDE RECORDS SUMMARY | 2025-04-03 22:07 | XMS_ITS | Clinical Summary ---
Author Organization [facility] Address [address] [place] [address] Phone Care Team Providers Care Belt Notcher Name Role Phone Monique White MD Primary Care Provider [phone] Sohail Penaloza MD Unavailable [phone] Alfred Guevara DPM, Erik Unavailable [phone] Allergies Active Allergy Reactions Criticality Noted Date [...] each eye nightly at bedtime. Active vitamins A,C,F-hunj-wxrqhq (PRESERVISION AREDS) 4,296 mcg-226 mg-90 mg Cap [...] 24 Active Additional Information Patient taking differently: 200 mcgOral Every morning, Reported on 03/25/2025 insulin pen needles, disposable, 31 gauge x [...] cough 09/10/2022 Hypothyroidism 07/14/2022 Assessment & Plan (03/25/2025 3:12 PM EST): Has had high TSH & rx titrated up to quite a high dose for her size. Concerned that TSH may be high d/t administration of rx & potential interruptions in rx when in hospital & this dose may be significantly too high when administered appropriately/consistently. Would not expect amiodarone to increase dose requirements in someone already on rx (beyond the usual replacement doses). Will repeat today, has been out of the hospital for > 1 month & recommend adjustment as appropriate. Advised staff to be sure to administer at least 1 hr prior to food/other meds & several hours apart from calcium/iron/MVI or fiber supplements. Assessment & Plan (12/16/2024 12:30 PM EDT): [...] (07/14/2022): CKD. Dr. Penaloza Assessment & Plan (03/25/2025 3:14 PM EST): BP controlled. Assessment & Plan (02/14/2024 5:08 PM EST): [...] PT (per her report last PT at [facility] in July-August 2020). I have encouraged [...] retinopathy 2020 Overview (01/18/2023): Dx age 40. [facility]. 14 day anyi via [place] Assessment & Plan (03/25/2025 3:12 PM EST): Up to date w/ ophtho. Assessment & Plan (02/14/2024 5:08 PM EST): [...] her glucose levels. Up to date with [facility]. Sees podiatry. Labs ordered today Assessment & [...] with glycemic control. Up to date with [facility]. Will do labs today. To call if [...] Overview (07/14/2022): Dr. Simon Assessment & Plan (03/25/2025 3:14 PM EST): Control suboptimal based on CGM. No frequent or severe hypoglycemia. Tending to drift down overnight, although not to the point of being too low and go up after eating. Advised to lower toujeo to 10 units & adjust scale to give 1 more unit with most meals (but cut down amount she is getting at higher glucose #s as may be too much). Continue to work on eating healthy & keeping active, as able. To call or send in BG with problems with glycemic control. Follows w/ podiatry. Assessment & Plan (12/16/2024 12:31 PM EDT): Control is reasonable but not optimal given the patient's age and comorbidities based upon the patient's freestyle anyi 2+ sensor download. No frequent or severe hypoglycemia. Will maintain the patient's regimen. Continue to work on eating healthy. To call or message with any issues managing her glucose levels. Up to date with [facility] Seeing podiatry in the senior living. Requested A1C be drawn next week as is due for it. half-way form filled out, copy kept for chart. [...] her glucose levels. Up to date with [facility]. half-way form filled out, copy kept for chart. [...] able to have the readings on the assembler sandal parts, if they can get an old iphone [...] her glucose levels. Up to date with [facility] Assessment & Plan (02/14/2024 5:14 PM EST): [...] available we should switch her to the [facility] G7, as it will be able to [...] to date with [facility]. Sees podiatry. 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); Acquired hypothyroidism; Type 1 diabetes mellitus with retinopathy, macular edema presence unspecified, unspecified laterality, unspecified retinopathy severity; Type 1 diabetes mellitus with diabetic chronic kidney disease, unspecified CKD stage 02/10/2025 Telephone [facility] [address] [place] [address] Ann Carrillo MD Forms & Paperwork (/) from Last 3 Months Family History Medical [...] Former Cigarettes 1 7 1 953 - 1959 Passive Smoke Exposure: Past Smokeless Tobacco: Never [...] Sign Reading Time Taken Comments Blood Pressure 120/78 03/25/2025 10:30 AM EST Pulse 74 03/25/2025 10:30 AM EST Temperature 36.2 C (97.1 F) 01/02/2024 8:11 [...] Description 06/18/2025 11:00 AM EDT Office Visit [facility] [address] [place] [address] Ann Carrillo MD [address] [place] [address] 09/15/2025 11:00 AM EDT Office Visit [facility] [address] [place] [address] Felicita Morgan PA-C [address] [place] [address] 01/06/2026 10:20 AM EDT Office Visit [facility] [address] [place] [address] Ann Carrillo MD [address] [place] [address] Health Maintenance Due Date Last Done Comments DEPRESSION SCREENING 1948 LIPID PANEL 1954 ZOSTER VACCINES (1 of 2) 1986 OSTEOPOROSIS SCREENING INITIAL (ONE-TIME) 2001 RSV VACCINE (1 - 1-dose 75+ series) 08/17/2011 PNEUMOCOCCAL VACCINES (50+ years) (2 of 2 - PPSV23, PCV20, or PCV21) 08/06/2018 06/11/2018 DIABETIC EYE EXAM 01/12/2021 INFLUENZA VACCINE (#1) 2024 4, 02/14/2022, 02/05/2021, Additional history exists COVID-19 VACCINE (3 - 2025-26 season) 2024 02/17/2021, 06/15/2020 HEMOGLOBIN A1C 06/23/2025 03/25/2025, 0908/2024, 09/17/2024, Additional history exists ALT LEVEL (ALANINE AMINOTRANSFERASE) 03/25/2026 03/25/2025, 07/14/2022, 09/22/2020 CREATININE LEVEL 03/25/2026 03/25/2025, 10/2022, 09/22/2020 TSH LEVEL 03/25/2026 03/25/2025, 11/0 06/2024, 01/26/2025, Additional history exists Adult Td,Tdap Booster 09/21/2029 [...] Procedure Name Priority Date/Time Associated Diagnosis Comments FREE T4 Routine 03/25/2025 12:05 PM EST Acquired hypothyroidism HEMOGLOBIN A1C Routine 03/25/2025 12:05 PM EST Type 1 diabetes mellitus with peripheral neuropathy BASIC METABOLIC PANEL (BMP) Routine 03/25/2025 12:05 PM EST Type 1 diabetes mellitus with peripheral neuropathy ASPARTATE AMINOTRANSFERASE (AST) Routine 03/25/2025 12:05 PM EST Type 1 diabetes mellitus with peripheral neuropathy ALANINE AMINOTRANSFERASE (ALT) Routine 03/25/2025 12:05 PM EST Type 1 diabetes mellitus with peripheral neuropathy TSH WITH REFLEX Routine 03/25/2025 12:05 PM EST Acquired hypothyroidism from Last 3 Months Results * (ABNORMAL) Thyroid Stimulating Hormone (TSH), with Reflex (03/25/2025 12:05 PM EST) TSH 22.50(H) 0.40 - 7.50 uIU/mL 03/25/2025 4:16 PM EST [facility] Blood (Blood) Venipuncture / Unknown 03/25/2025 12:05 PM EST 03/25/2025 12:05 PM EST us Ann Carrillo MD LAB BLOOD BKR ORDERABL ES Final Result Performing Organization Address City/[facility]/ZIP Co de Phone Number [address] [address] * Alanine Aminotransferase (ALT) (03/25/2025 12:05 PM EST) ALT 20 <34 U/L 03/25/2025 4:1 6 PM EST [facility] Blood (Blood) Venipuncture / Unknown 03/25/2025 12:05 PM EST 03/25/2025 12:05 PM EST us Ann Carrillo MD LAB BLOOD BKR ORDERABL ES Final Result Performing Organization Address [facility]/ZIP Co de Phone Number [address] [address] * Aspartate Aminotransferase (AST) (03/25/2025 12:05 PM EST) AST 27 <33 U/L 03/25/2025 4:1 6 PM EST [facility] Blood (Blood) Venipuncture / Unknown 03/25/2025 12:05 PM EST 03/25/2025 12:05 PM EST us Ann Carrillo MD LAB BLOOD BKR ORDERABL ES Final Result Performing Organization Address [facility]/ZIP Co de Phone Number [address] [address] * T4, Free (03/25/2025 12:05 PM EST) T4, Free 1.4 0.9 - 1.8 ng/dL 03/25/2025 5:14 PM EST [facility] Blood (Blood) Venipuncture / Unknown 03/25/2025 12:05 PM EST 03/25/2025 12:05 PM EST Ann Carrillo MD LAB BLOOD BKR ORDERABL ES Final Result Performing Organization Address [facility]/ZIP Co de Phone Number [address] [address] * (ABNORMAL) Hemoglobin A1c (03/25/2025 12:05 PM EST) Pathologist [facility] Hemoglobin A1c 9.6(H) 4.3 - 5.6 % 03/25/2025 3:46 PM [facility] Calculated Mean Blood Glucose 229 mg/dL 03/25/2025 3:46 PM [facility] Comment:There is no [facility] normal range for the Estimated Average Glucose (EAG). However, a HbA1c of 5.6% (upper limit of normal) represents an EAG of 114 mg/dL. The diagnostic HbA1c level for diabetes is greater than or equal to 6.5%, which represents an EAG greater than or equal to 140 mg/dL. Blood (Blood) Venipuncture / Unknown 03/25/2025 12:05 PM EST 03/25/2025 12:05 PM EST Ann Carrillo MD LAB BLOOD BKR ORDERABL ES Final Result [address] [address] * (ABNORMAL) Basic Metabolic Panel (BMP) (03/25/2025 12:05 PM EST) Pathologist [facility] Sodium 135(L) 136 - 145 mmol/L 03/25/2025 4:16 PM [facility] Potassium 4.7 3.4 - 5.1 mmol/L 03/25/2025 4:16 PM [facility] Chloride 95(L) 98 - 107 mmol/L 03/25/2025 4:16 PM [facility] CO2 29 20 - 31 mmol/L 03/25/2025 4:16 PM [facility] BUN 27(H) 6 - 23 mg/dL 03/25/2025 4:16 PM [facility] Creatinine 1.20(H) 0.50 - 1.00 mg/dL 03/25/2025 4:16 PM [facility] Glucose 370(H) 70 - 99 mg/dL 03/25/2025 4:16 PM [facility] Calcium 9.3 8.5 - 10.5 mg/dL 03/25/2025 4:16 PM [facility] eGFR 44(L) >59 mL/min/1.7 3m2 03/25/2025 4:16 PM [facility] Comment:Estimated glomerular filtration rate calculated using the CKD-EPI refit equation. Anion Gap 11 3 - 17 mmol/L 03/25/2025 4:16 PM [facility] Blood (Blood) Venipuncture / Unknown 03/25/2025 12:05 PM EST 03/25/2025 12:05 PM EST Ann Carrillo MD LAB BLOOD BKR ORDERABL ES Final Result Performing Organization Address City/State/[facility] Co de Phone Number [facility] [address] [place] [address] from Last 3 Months Insurance MEDICARE PART A & B [employer] SU[employer]LEMENT MEDICARE PART A & B [employer] SUPP[employer]MENT MEDICARE PART A & B [employer] SUPPLEMENT MEDICARE PART A & B [employer] SUPPLEMENT MEDICARE PART A & B [employer] SUPPLEMENT MEDICARE PART A & B [employer] SUPPLEMENT MEDICARE PART A & B [employer] SUPPLEMENT MEDICARE PART A & B [employer] SUPPLEMENT MED[place] PART A & [place] [id number] SUPPLEMENT Care Teams Belt Notcher Relationship Specialty Start Date End Date Monique White MD [address] [place] [address] Drive [address] [place] [address] PCP - General Internal Medicine 08/30/19 Sohail Penaloza MD [address] [place] [address] Nephrology 07/14/22 Arturo Simon DPM [address] [place] [address] Podiatry 07/14/22 Additional Source Comments The information contained in this document represents components of the legal health record. It is not the complete legal health record.[facility]
--- OUTSIDE RECORDS SUMMARY | 2025-04-03 22:07 | XMS_ITS | Encounter Summary ---
Author Organization [facility] Address [address] [place] [address] Care Team Providers Care Freelance Court Stenographer Name Role Phone Torrey Kwok MD Primary Care Provider [phone] Encounter Details Date Type Department Care Team (Late st Contact Info) Description 03/19/2025 Lab Requisition [facility] - Main Lab [address] [facility] [employer] [place] [address] Torrey Kwok MD [address] [place], [place] [id number] Type 2 diabetes mellitus without complications (CMS/HCC V24, CMS/HCC V28); Chronic diastolic (congestive) heart failure (CMS/HCC V24, [...] Associated Diagnosis Comments BASIC METABOLIC PANEL Routine 03/20/2025 7:30 AM EST Type 2 diabetes mellitus without complications (CMS/HCC V24, CMS/HCC V28) Chronic diastolic (congestive) heart failure (CMS/HCC V24, CMS/HCC V28) documented in this encounter Results * (ABNORMAL) Basic metabolic panel (03/20/2025 7:30 AM EST) Sodium 138 133 - 145 mmol/L 03/20/2025 12:44 PM EST [facility] Potassium 4.1 3.5 - 5.5 mmol/L 03/20/2025 12:44 PM [facility] Chloride 99 96 - 110 mmol/L 03/20/2025 12:44 PM [facility] CO2 27 21 - 32 mmol/L 03/20/2025 12:44 PM [facility] Anion Gap 12(H) 3 - 11 03/20/2025 12:44 PM [facility] Glucose 84 70 - 100 mg/dL 03/20/2025 12:44 PM [facility] BUN 30(H) 5 - 25 mg/dL 03/20/2025 12:44 PM [facility] Creatinine 1.32(H) 0.50 - 1.10 mg/dL 03/20/2025 12:44 PM [facility] eGFR 39(L) >=60 mL/min/1. 73m2 03/20/2025 12:44 PM [facility] Comment:Calculation based on the Chronic Kidney Disease Epidemiology Collaboration (CKD-EPI) equation refit without adjustment for race. BUN/Creatinine Ratio 22.7 03/20/2025 12:44 PM [facility] Calcium 7.9(L) 8.5 - 10.5 mg/dL 03/20/2025 12:44 PM [facility] Blood Venous blood specimen / Unknown Venipuncture / Unknown 03/20/2025 7:30 AM EST 03/20/2025 10:09 AM EST us Torrey Kwok MD LAB BLOOD ORDERABLES Final Resul t [facility] [address] [place] [address], [place] [phone] documented in this encounter Visit Diagnoses Diagnosis Type 2 diabetes mellitus without complications (CMS/HCC V24, CMS/HCC V28) Chronic diastolic (congestive) heart failure (CMS/HCC V24, CMS/HCC V28) documented in this encounter Care Teams Freelance Court Stenographer Relationship Specialty Start Date End Date Torrey Kwok MD [address] [place] [address] [address] [place] [address] PCP - General Geriatric Medicine 04/25/24 documented as of this encounter
--- OUTSIDE RECORDS SUMMARY | 2025-04-03 22:08 | XMS_ITS | Encounter Summary ---
Author Organization [facility] Address [address] [place] [address] Care Team Providers Care Electrical Engineer Name Role Phone Torrey Kwok MD Primary Care Provider [phone] Encounter Details Date Type Department Care Team (Late st Contact Info) Description 08/22/2024 Lab Requisition [facility] - Main Lab [address] [facility] [place] [address] Torrey Kwok MD [address] [place], [place] [phone] Chronic kidney disease, stage 3 unspecified (CMS/HCC [...] LAB CHEMISTRY METHOD 08/22/2024 4:28 PM EDT [facility] Blood Venous blood specimen / Unknown Venipuncture / Unknown 08/22/2024 5:24 AM EDT 08/22/2024 9:20 AM EDT us Torrey Kwok MD LAB BLOOD ORDERABLES Final Resul t Performing Organization Address City/[facility]/ZIP Co de Phone Number [facility] [address] [place] [address], [place] [phone] * (ABNORMAL) Thyroid stimulating hormone (08/22/2024 5:24 AM EDT) Pathologist [facility] TSH 27.27(H) 0.40 - 4.00 mcIU/mL LAB CHEMISTRY METHOD 08/22/2024 11:34 AM EDT [facility] Blood Venous blood specimen / Unknown Venipuncture / Unknown 08/22/2024 5:24 AM EDT 08/22/2024 9:20 AM EDT us Torrey Kwok MD LAB BLOOD ORDERABLES Final Resul t Performing Organization Address City/[facility]/ZIP Co de Phone Number [facility] [address] [place] [address], [place] [phone] * (ABNORMAL) Basic metabolic panel (08/22/2024 5:24 AM EDT) [facility] Sodium 138 133 - 145 mmol/L LAB CHEMISTRY METHOD 08/22/2024 10:34 AM EDT [facility] Potassium 4.0 3.5 - 5.5 mmol/L LAB CHEMISTRY METHOD 08/22/2024 10:34 AM EDT [facility] Chloride 104 96 - 110 mmol/L LAB CHEMISTRY METHOD 08/22/2024 10:34 AM [facility] CO2 26 21 - 32 mmol/L LAB CHEMISTRY METHOD 08/22/2024 10:34 AM [facility] Anion Gap 8 3 - 11 LAB CHEMISTRY METHOD 08/22/2024 10:34 AM [facility] Glucose 162(H) 70 - 100 mg/dL LAB CHEMISTRY METHOD 08/22/2024 10:34 AM [facility] BUN 42(H) 5 - 25 mg/dL LAB CHEMISTRY METHOD 08/22/2024 10:34 AM [facility] Creatinine 1.17(H) 0.50 - 1.10 mg/dL LAB CHEMISTRY METHOD 08/22/2024 10:34 AM [facility] eGFR 45(L) >=60 mL/min/1. 73m2 LAB CHEMISTRY METHOD 08/22/2024 10:34 AM [facility] Comment:Calculation based on the Chronic Kidney Disease Epidemiology Collaboration (CKD-EPI) equation refit without adjustment for race. BUN/Creatinine Ratio 35.9 LAB CHEMISTRY METHOD 08/22/2024 10:34 AM [facility] Calcium 8.6 8.5 - 10.5 mg/dL LAB CHEMISTRY METHOD 08/22/2024 10:34 AM [facility] Blood Venous blood specimen / Unknown Venipuncture / Unknown 08/22/2024 5:24 AM EDT 08/22/2024 9:20 AM EDT us Torrey Kwok MD LAB BLOOD ORDERABLES Final Resul t [facility] [address] [place] [address], documented in this encounter Visit Diagnoses Diagnosis Chronic kidney disease, stage 3 unspecified (CMS/HCC V24, CMS/HCC V28) Hypothyroidism, unspecified documented in this encounter Additional Health Concerns Infection Onset Date Last Indicated Resolved Time C. difficile Rule-Out 03/12/2025 03/11/20252024 11:34 AM EST documented as of this encounter Care Teams Electrical Engineer Relationship Specialty Start Date End Date Torrey Kwok MD [address] [place] [address] [address] [place] [address] PCP - General Geriatric Medicine 04/25/24 documented as of this encounter
--- OUTSIDE RECORDS SUMMARY | 2025-04-03 22:08 | XMS_ITS | Encounter Summary ---
Author Organization [facility] Address [address] [place] [address] Care Team Providers Care Harpsichord Maker Name Role Phone Torrey Kwok MD Primary Care Provider [phone] Encounter Details Date Type Department Care Team (Late st Contact Info) Description 05/09/2024 Lab Requisition [facility] - Main Lab [address] [facility] [place] [address] Torrey Kwok MD [address] [place], [place] [phone] Type 2 diabetes mellitus with unspecified diabetic [...] Indicated Resolved Time Respiratory Rule-Out 07/12/2024 07/11/2024 04/05/2 025 11:25 AM EDT C. difficile Rule-Out 03/12/2025 03/11/20252024 11:34 AM EST documented as of this encounter Care Teams Harpsichord Maker Relationship Specialty Start Date End Date Torrey Kwok MD [address] [place] [address] [address] [place] [address] PCP - General Geriatric Medicine 04/25/24 documented as of this encounter
--- OUTSIDE RECORDS SUMMARY | 2025-04-03 22:08 | XMS_ITS | Encounter Summary ---
Author Organization [facility] Address [address] [place] [address] Care Team Providers Care Co Chairman Name Role Phone Torrey Kowk MD Primary Care Provider [phone] Encounter Details Date Type Department Care Team (Late st Contact Info) Description 11/22/[address] [facility] - Main Lab [address] 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 ([facility] V24, [facility] V28) documented in this encounter Results * (ABNORMAL) Complete blood count (11/24/2024 9:52 AM EDT) [facility] WBC 7.4 4.8 - 10.8 K/mcL LAB HEMETOLOGY METHOD 11/24/2024 12:[address] [facility] RBC 3.10(L) 3.80 - 4.80 M/mcL LAB HEMETOLOGY METHOD 11/24/2024 12:48 [facility] Hemoglobin 9.8(L) 11.5 - 16.0 g/dL LAB HEMETOLOGY METHOD 11/24/2024 12:[address] [facility] Hematocrit 31.9(L) 35.0 - 47.0 % LAB HEMETOLOGY METHOD 11/24/2024 12:48 PM [facility] MCV 102.9(H) 79.0 - 98.0 FL LAB HEMETOLOGY METHOD 11/24/2024 12:48 PM [facility] MCH 31.6 27.0 - 32.0 pcg LAB HEMETOLOGY METHOD 11/24/2024 12:[address] [facility] MCHC 30.7(L) 32.0 - 37.0 g/dL LAB HEMETOLOGY METHOD 11/24/2024 12:48 PM [facility] RDW 17.1(H) 11.0 - 15.0 % LAB HEMETOLOGY METHOD 11/24/2024 12:48 PM [facility] Platelets 278 130 - 400 [...] Resul t [facility] [address] [place] [address], * (ABNORMAL) Basic metabolic panel (11/24/2024 9:52 AM EDT) Sodium 138 133 - 145 mmol/L LAB CHEMISTRY METHOD 11/24/2024 4:19 PM [facility] Potassium 3.9 3.5 - 5.5 mmol/L LAB CHEMISTRY METHOD 11/24/2024 4:19 PM [facility] Chloride 103 96 - 110 mmol/L LAB CHEMISTRY METHOD 11/24/2024 4:19 PM [facility] CO2 31 21 - 32 mmol/L LAB CHEMISTRY METHOD 11/24/2024 4:19 PM [facility] Anion Gap 4 3 - 11 LAB CHEMISTRY METHOD 11/24/2024 4:19 PM [facility] Glucose 255(H) 70 - 100 mg/dL LAB CHEMISTRY METHOD 11/24/2024 4:19 PM [facility] BUN 28(H) [...] 9:52 AM EDT 11/24/2024 11:01 AM EDT Torrey Kwok MD LAB BLOOD ORDERABLES Final Resul t [facility] [address] [place] [address], documented in this encounter Visit Diagnoses Diagnosis [...] documented as of this encounter Care Teams Co Chairman Relationship Specialty Start Date End Date Torrey Kwok MD [address] [facility] [address] [place] [address] PCP - General Geriatric Medicine 04/25/24 documented as of this encounter
--- OUTSIDE RECORDS SUMMARY | 2025-04-03 22:08 | XMS_ITS | Encounter Summary ---
Author Organization [facility] Address [address] [place] [phone] Care Team Providers Care Catering Chef Name Role Phone Torrey Kwok MD Primary Care Provider [phone] Encounter Details Date Type Department Care Team (Late st Contact Info) Description 08/08/2024 Lab Requisition [facility] - Main Lab 299 [facility] [place] [address] Torrey Kwok MD [address] [place], [place] [id number] Type 2 diabetes mellitus with diabetic chronic [...] diabetes mellitus with diabetic chronic kidney disease ([facility] V24, [facility] V28) Essential (primary) hypertension Heart failure, unspecified ([facility] V24, [facility] V28) 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 ([facility] V24, [facility] V28) documented in this encounter Results * (ABNORMAL) Basic metabolic panel (08/11/2024 5:15 AM EDT) Pathologist [facility] Sodium 137 133 - 145 mmol/L LAB CHEMISTRY METHOD 08/11/2024 2:34 PM [facility] Potassium 4.0 3.5 - 5.5 mmol/L LAB CHEMISTRY METHOD 08/11/2024 2:34 PM [facility] Chloride 99 96 - 110 mmol/L LAB CHEMISTRY METHOD 08/11/2024 2:34 PM [facility] CO2 30 21 - 32 mmol/L LAB CHEMISTRY METHOD 08/11/2024 2:34 PM [facility] Anion Gap 8 3 - 11 LAB CHEMISTRY METHOD 08/11/2024 2:34 PM [facility] Glucose 259(H) 70 - 100 mg/dL LAB CHEMISTRY METHOD 08/11/2024 2:34 PM [facility] BUN 41(H) 5 - 25 mg/dL LAB CHEMISTRY METHOD 08/11/2024 2:34 PM [facility] Creatinine 1.54(H) 0.50 - 1.10 mg/dL LAB CHEMISTRY METHOD 08/11/2024 2:34 PM [facility] eGFR 33(L) >=60 mL/min/1. 73m2 LAB CHEMISTRY METHOD 08/11/2024 2:34 PM [facility] Comment:Calculation based on the Chronic Kidney Disease Epidemiology Collaboration (CKD-EPI) equation refit without adjustment for race. BUN/Creatinine Ratio 26.6 LAB CHEMISTRY METHOD 08/11/2024 2:34 PM EDT [facility] Calcium 8.5 8.5 - 10.5 mg/dL LAB CHEMISTRY METHOD 08/11/2024 2:34 PM T [facility] Blood Venous blood specimen / Unknown Venipuncture / Unknown 08/11/2024 5:15 AM EDT 08/11/2024 12:58 PM EDT us Torrey Kwok MD LAB BLOOD ORDERABLES Final Resul t [facility] [address] [place] [address], * (ABNORMAL) Complete blood count (08/11/2024 5:15 AM EDT) WBC 6.1 4.8 - 10.8 K/mcL LAB HEMETOLOGY METHOD 08/11/2024 2:05 PM [facility] RBC 3.50(L) 3.80 - 4.80 M/mcL LAB HEMETOLOGY METHOD 08/11/2024 2:05 PM [facility] Hemoglobin 11.0(L) 11.5 - 16.0 g/dL LAB HEMETOLOGY METHOD 08/11/2024 2:05 PM [facility] Hematocrit 35.3 35.0 - 47.0 % LAB HEMETOLOGY METHOD 08/11/2024 2:05 PM [facility] MCV 101.4(H) 79.0 - 98.0 FL LAB HEMETOLOGY METHOD 08/11/2024 2:05 PM [facility] MCH 31.6 27.0 - 32.0 pcg LAB HEMETOLOGY METHOD 08/11/2024 2:05 PM [facility] MCHC 31.2(L) 32.0 - 37.0 g/dL LAB HEMETOLOGY METHOD 08/11/2024 2:05 PM EDT [facility] RDW 16.1(H) 11.0 - 15.0 % LAB HEMETOLOGY METHOD 08/11/2024 2:05 PM EDT [facility] Platelets 261 130 - 400 K/mcL LAB HEMETOLOGY METHOD 08/11/2024 2:05 PM EDT [facility] MPV 10.8 7.0 - 11.0 FL LAB HEMETOLOGY METHOD 08/11/2024 2:05 PM EDT [facility] NRBC 0.0 <1.0 % LAB HEMETOLOGY METHOD 08/11/2024 2:05 PM EDT [facility] NRBC Absolute 0.00 <0.10 K/mcL LAB HEMETOLOGY METHOD 08/11/2024 2:05 PM EDT [facility] Blood Venous blood specimen / Unknown Venipuncture / Unknown 08/11/2024 5:15 AM EDT 08/11/2024 12:58 PM EDT Torrey Kwok MD LAB BLOOD ORDERABLES Final Resul t [facility] [address] [place] [address], documented in this encounter Visit Diagnoses Diagnosis [...] documented as of this encounter Care Teams Catering Chef Relationship Specialty Start Date End Date Torrey Kwok MD [address] [place] [address] [address] [place] [address] PCP - General Geriatric Medicine 04/25/24 documented as of this encounter
--- OUTSIDE RECORDS SUMMARY | 2025-04-03 22:08 | XMS_ITS | Encounter Summary ---
Author Organization [facility] Address [address] [place] [address] Care Team Providers Care Mobile Phlebotomist Name Role Phone Torrey Kwok MD Primary Care Provider [phone] Encounter Details Date Type Department Care Team (Late st Contact Info) Description 07/31/2024 Lab Requisition [facility] - Main Lab 299 [facility] [place] [address] Torrey Kwok MD [address] [place], [place] [phone] Chronic diastolic (congestive) heart failure (CMS/HCC V24, [...] AM EDT) WBC 6.3 4.8 - 10.8 K/[facility] LAB HEMETOLOGY METHOD 08/01/2024 10:58 AM [facility] RBC 3.30(L) 3.80 - 4.80 M/mcL LAB HEMETOLOGY METHOD 08/01/2024 10:58 AM [facility] Hemoglobin 10.6(L) 11.5 - 16.0 g/dL LAB HEMETOLOGY METHOD 08/01/2024 10:58 AM [facility] Hematocrit 32.5(L) 35.0 - 47.0 % LAB HEMETOLOGY METHOD 08/01/2024 10:58 AM [facility] LAB MCV 99.1(H) 79.0 - 98.0 FL LAB HEMETOLOGY METHOD 08/01/2024 10:58 AM [facility] LAB MCH 32.3(H) 27.0 - 32.0 pcg LAB HEMETOLOGY METHOD 08/01/2024 10:58 AM [facility] LAB MCHC 32.6 32.0 - 37.0 g/dL LAB HEMETOLOGY METHOD 08/01/2024 10:58 AM [facility] LAB RDW 16.4(H) 11.0 - 15.0 % LAB HEMETOLOGY METHOD 08/01/2024 10:58 AM [facility] Platelets 311 130 - 400 K/mcL LAB HEMETOLOGY METHOD 08/01/2024 10:58 AM [facility] LAB MPV 10.6 7.0 - 11.0 FL LAB HEMETOLOGY METHOD 08/01/2024 10:58 AM [facility] NRBC 0.0 <1.0 % LAB HEMETOLOGY METHOD 08/01/2024 10:58 AM [facility] NRBC Absolute 0.00 <0.10 K/mcL LAB HEMETOLOGY METHOD 08/01/2024 10:58 AM [facility] Blood Venous blood specimen / Unknown Venipuncture / Unknown 08/01/2024 8:17 AM EDT 08/01/2024 9:02 AM EDT us Torrey Kwok MD LAB BLOOD ORDERABLES Final Resul t [facility] [address] [place] [address], * (ABNORMAL) Basic metabolic panel (08/01/2024 8:17 AM EDT) [facility] Sodium 139 133 - 145 mmol/L LAB CHEMISTRY METHOD 08/01/2024 11:14 AM [facility] Potassium 3.9 3.5 - 5.5 mmol/L LAB CHEMISTRY METHOD 08/01/2024 11:14 AM [facility] Chloride 103 96 - 110 mmol/L LAB CHEMISTRY METHOD 08/01/2024 11:14 AM [facility] CO2 27 21 - 32 mmol/L LAB CHEMISTRY METHOD 08/01/2024 11:14 AM [facility] Anion Gap 9 3 - 11 LAB CHEMISTRY METHOD 08/01/2024 11:14 AM [facility] Glucose 125(H) 70 - 100 mg/dL LAB CHEMISTRY METHOD 08/01/2024 11:14 AM [facility] BUN 32(H) 5 - 25 mg/dL LAB CHEMISTRY METHOD 08/01/2024 11:14 AM [facility] Creatinine 1.35(H) 0.50 - 1.10 mg/dL LAB CHEMISTRY METHOD 08/01/2024 11:14 AM [facility] eGFR 38(L) >=60 mL/min/1. 73m2 LAB CHEMISTRY METHOD 08/01/2024 11:14 AM [facility] Comment:Calculation based on the Chronic Kidney Disease Epidemiology Collaboration (CKD-EPI) equation refit without adjustment for race. BUN/Creatinine Ratio 23.7 LAB CHEMISTRY METHOD 08/01/2024 11:14 AM EDT [facility] Calcium 8.4(L) 8.5 - 10.5 mg/dL LAB CHEMISTRY METHOD 08/01/2024 11:14 AM EDT [facility] Blood Venous blood specimen / Unknown Venipuncture / Unknown 08/01/2024 8:17 AM EDT 08/01/2024 9:02 AM EDT us Torrey Kwok MD LAB BLOOD ORDERABLES Final Resul t [facility] [address] [place] [address], documented in this encounter Visit Diagnoses Diagnosis Chronic diastolic (congestive) heart failure (CMS/HCC V24, CMS/HCC V28) documented in this encounter Additional Health Concerns Infection Onset Date Last Indicated Resolved Time C. difficile Rule-Out 03/12/2025 03/11/20252024 11:34 AM EST documented as of this encounter Care Teams Mobile Phlebotomist Relationship Specialty Start Date End Date Torrey Kwok MD [address] [place] [address] [address] [place] [address] PCP - General Geriatric Medicine 04/25/24 documented as of this encounter
--- OUTSIDE RECORDS SUMMARY | 2025-04-03 22:08 | XMS_ITS | Encounter Summary ---
Author Organization [facility] Address [address] [place] [address] Care Team Providers Care Clam Picker Name Role Phone Torrey Kwok MD Primary Care Provider [phone] Encounter Details Date Type Department Care Team (Late st Contact Info) Description 09/12/2024 Lab Requisition [facility] - Main Lab 299 [facility] [place] [address] Torrey Kwok MD [address] [place], [place] [phone] Type 2 diabetes mellitus with diabetic chronic [...] Complete blood count (09/15/2024 6:09 AM EDT) [facility] Signature WBC 6.5 4.8 - 10.8 K/mcL LAB HEMETOLOGY METHOD 09/15/2024 2:36 PM EDT [facility] RBC 3.70(L) 3.80 - 4.80 M/mcL LAB HEMETOLOGY METHOD 09/15/2024 2:36 PM EDT [facility] Hemoglobin 11.5 11.5 - 16.0 g/dL LAB HEMETOLOGY METHOD 09/15/2024 2:36 PM EDT [facility] Hematocrit 36.4 35.0 - 47.0 % LAB HEMETOLOGY METHOD 09/15/2024 2:36 PM EDT [facility] MCV 99.5(H) 79.0 - 98.0 FL LAB HEMETOLOGY METHOD 09/15/2024 2:36 PM EDT [facility] MCH 31.4 27.0 - 32.0 pcg LAB HEMETOLOGY METHOD 09/15/2024 2:36 PM EDT [facility] MCHC 31.6(L) 32.0 - 37.0 g/dL LAB HEMETOLOGY METHOD 09/15/2024 2:36 PM EDT [facility] RDW 16.9(H) 11.0 - 15.0 % LAB HEMETOLOGY METHOD 09/15/2024 2:36 PM EDT [facility] Platelets 299 130 - 400 K/mcL LAB HEMETOLOGY METHOD 09/15/2024 2:36 PM EDT [facility] MPV 10.6 7.0 - 11.0 FL LAB HEMETOLOGY METHOD 09/15/2024 2:36 PM EDT [facility] NRBC 0.0 <1.0 % LAB HEMETOLOGY METHOD 09/15/2024 2:36 PM EDT [facility] NRBC Absolute 0.00 <0.10 K/mcL LAB HEMETOLOGY METHOD 09/15/2024 2:36 PM [facility] Blood Venous blood specimen / Unknown Venipuncture / Unknown 09/15/2024 6:09 AM EDT 09/15/2024 11:09 AM EDT us Torrey Kwok MD LAB BLOOD ORDERABLES Final Resul t [facility] [address] [place] [address], * (ABNORMAL) Basic metabolic panel (09/15/2024 6:09 AM EDT) Sodium 137 133 - 145 mmol/L LAB CHEMISTRY METHOD 09/15/2024 12:42 PM [facility] Potassium 3.9 3.5 - 5.5 mmol/L LAB CHEMISTRY METHOD 09/15/2024 12:42 PM [facility] Chloride 99 96 - 110 mmol/L LAB CHEMISTRY METHOD 09/15/2024 12:42 PM [facility] CO2 27 21 - 32 mmol/L LAB CHEMISTRY METHOD 09/15/2024 12:42 PM [facility] Anion Gap 11 3 - 11 LAB CHEMISTRY METHOD 09/15/2024 12:42 PM [facility] Glucose 318(H) 70 - 100 mg/dL LAB CHEMISTRY METHOD 09/15/2024 12:42 PM [facility] BUN 30(H) 5 - 25 mg/dL LAB CHEMISTRY METHOD 09/15/2024 12:42 PM [facility] Creatinine 1.23(H) 0.50 - 1.10 mg/dL LAB CHEMISTRY METHOD 09/15/2024 12:42 PM [facility] eGFR 42(L) >=60 mL/min/1. 73m2 LAB CHEMISTRY METHOD 09/15/2024 12:42 PM EDT [facility] Comment:Calculation based on the Chronic Kidney Disease Epidemiology Collaboration (CKD-EPI) equation refit without adjustment for race. BUN/Creatinine Ratio 24.4 LAB CHEMISTRY METHOD 09/15/2024 12:42 PM EDT [facility] Calcium 8.4(L) 8.5 - 10.5 mg/dL LAB CHEMISTRY METHOD 09/15/2024 12:42 PM EDT [facility] Blood Venous blood specimen / Unknown Venipuncture / Unknown 09/15/2024 6:09 AM EDT 09/15/2024 11:09 AM EDT Torrey Kwok MD LAB BLOOD ORDERABLES Final Resul t [facility] [address] [place] [address], documented in this encounter Visit Diagnoses Diagnosis [...] documented as of this encounter Care Teams Clam Picker Relationship Specialty Start Date End Date Torrey Kwok MD [address] [facility] [address] [place] [address] PCP - General Geriatric Medicine 04/25/24 documented as of this encounter
--- OUTSIDE RECORDS SUMMARY | 2025-04-03 22:08 | XMS_ITS | Encounter Summary ---
Author Organization [facility] Address [address] [place] [address] Care Team Providers Care Roller Mill Tender Name Role Phone Torrey Kwok MD Primary Care Provider [phone] Encounter Details Date Type Department Care Team (Late st Contact Info) Description 08/01/2024 Lab Requisition [facility] - Main Lab 299 [facility] [place] [address] Torrey Kwok MD [address] [place], [place] [phone] Type 2 diabetes mellitus with diabetic chronic [...] mmol/L LAB CHEMISTRY METHOD 08/04/2024 7:05 PM [facility] Potassium 4.1 3.5 - 5.5 mmol/L LAB CHEMISTRY METHOD 08/04/2024 7:05 PM [facility] Chloride 101 96 - 110 mmol/L LAB CHEMISTRY METHOD 08/04/2024 7:05 PM [facility] CO2 26 21 - 32 mmol/L LAB CHEMISTRY METHOD 08/04/2024 7:05 PM [facility] Anion Gap 7 3 - 11 LAB CHEMISTRY METHOD 08/04/2024 7:05 PM [facility] Glucose 158(H) 70 - 100 mg/dL LAB CHEMISTRY METHOD 08/04/2024 7:05 PM [facility] BUN 31(H) 5 - 25 mg/dL LAB CHEMISTRY METHOD 08/04/2024 7:05 PM [facility] Creatinine 1.08 0.50 - 1.10 mg/dL LAB CHEMISTRY METHOD 08/04/2024 7:05 PM [facility] eGFR 50(L) >=60 mL/min/1. 73m2 LAB CHEMISTRY METHOD 08/04/2024 7:05 PM [facility] Comment:Calculation based on the Chronic Kidney Disease Epidemiology Collaboration (CKD-EPI) equation refit without adjustment for race. BUN/Creatinine Ratio 28.7 LAB CHEMISTRY METHOD 08/04/2024 7:05 PM EDT [facility] Calcium 8.6 8.5 - 10.5 mg/dL LAB CHEMISTRY METHOD 08/04/2024 7:05 PM EDT [facility] Blood Venous blood specimen / Unknown Venipuncture / Unknown 08/04/2024 5:22 AM EDT 08/04/2024 11:34 AM EDT us Torrey Kwok MD LAB BLOOD ORDERABLES Final Resul t [facility] [address] [place] [address], * (ABNORMAL) Complete blood count (08/04/2024 5:22 AM EDT) WBC 5.6 4.8 - 10.8 K/mcL LAB HEMETOLOGY METHOD 08/04/2024 12:48 PM EDT [facility] RBC 3.50(L) 3.80 - 4.80 M/mcL LAB HEMETOLOGY METHOD [facility]24 [facility] Hemoglobin 11.0(L) 11.5 - 16.0 g/dL LAB HEMETOLOGY METHOD 08/04/2024 12:48 PM [facility] Hematocrit 34.4(L) 35.0 - 47.0 % LAB HEMETOLOGY METHOD 08/04/2024 12:48 PM EDT [facility] MCV 98.6(H) 79.0 - 98.0 FL LAB HEMETOLOGY METHOD 08/04/2024 12:48 PM EDT [facility] MCH 31.5 27.0 - 32.0 pcg LAB HEMETOLOGY METHOD 08/04/2024 12:48 PM [facility] MCHC 32.0 32.0 - 37.0 g/dL LAB HEMETOLOGY METHOD 08/04/2024 12:48 PM EDT [facility] RDW 16.2(H) 11.0 - 15.0 % LAB HEMETOLOGY METHOD 08/04/2024 12:48 PM EDT [facility] Platelets 301 130 - 400 K/mcL LAB HEMETOLOGY METHOD 08/04/2024 12:48 PM EDT [facility] MPV 10.7 7.0 - 11.0 FL LAB HEMETOLOGY METHOD 08/04/2024 12:48 PM EDT [facility] NRBC 0.0 <1.0 % LAB HEMETOLOGY METHOD 08/04/2024 12:48 PM EDT [facility] NRBC Absolute 0.00 <0.10 K/mcL LAB HEMETOLOGY METHOD 08/04/2024 12:48 PM EDT [facility] Blood Venous blood specimen / Unknown Venipuncture / Unknown 08/04/2024 5:22 AM EDT 08/04/2024 11:18 AM EDT us Torrey Kwok MD LAB BLOOD ORDERABLES Final Resul t [facility] [address] [place] [address], documented in this encounter Visit Diagnoses Diagnosis 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, [facility]/HCC V28) Essential (primary) hypertension Unspecified essential hypertension Heart failure, unspecified (CMS/HCC V24, [facility] V28) Heart failure, unspecified 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 difficile Rule-Out 03/12/2025 03/11/20252024 11:34 AM EST documented as of this encounter Care Teams Roller Mill Tender Relationship Specialty Start Date End Date Torrey Kwok MD [address] [place] [address] [address] [place] [address] PCP - General Geriatric Medicine 04/25/24 documented as of this encounter
--- OUTSIDE RECORDS SUMMARY | 2025-04-03 22:08 | XMS_ITS | Encounter Summary ---
Author Organization [facility] Address [address] [place] [address] Care Team Providers Care Horse Trader Name Role Phone Torrey Kwok MD Primary Care Provider [phone] Encounter Details Date Type Department Care Team (Late st Contact Info) Description 05/09/2024 Lab Requisition [facility] - Main Lab 299 [facility] [place] [address] Torrey Kwok MD [address] [place], [place] [phone] Type 2 diabetes mellitus with unspecified diabetic [...] diabetes mellitus with diabetic chronic kidney disease ([facility]/HCC) documented in this encounter Results * (ABNORMAL) Basic metabolic panel (05/12/2024 5:48 AM EST) Sodium 135 133 - 145 mmol/L LAB CHEMISTRY METHOD 05/12/2024 1:22 PM [facility] Potassium 3.5 3.5 - 5.5 mmol/L LAB CHEMISTRY METHOD 05/12/2024 1:22 PM [facility] Chloride 98 96 - 110 mmol/L LAB CHEMISTRY METHOD 05/12/2024 1:22 PM [facility] CO2 30 21 - 32 mmol/L LAB CHEMISTRY METHOD 05/12/2024 1:22 PM [facility] Anion Gap 7 3 - 11 LAB CHEMISTRY METHOD 05/12/2024 1:22 PM [facility] Glucose 219(H) 70 - 100 mg/dL LAB CHEMISTRY METHOD 05/12/2024 1:22 PM [facility] BUN 28(H) 5 - 25 mg/dL LAB CHEMISTRY METHOD 05/12/2024 1:22 PM [facility] Creatinine 0.97 0.50 - 1.10 mg/dL LAB CHEMISTRY METHOD 05/12/2024 1:22 PM [facility] eGFR 57(L) >=60 mL/min/1. 73m2 LAB CHEMISTRY METHOD 05/12/2024 1:22 PM [facility] Comment:Calculation based on the Chronic Kidney Disease Epidemiology Collaboration (CKD-EPI) equation refit without adjustment for race. BUN/Creatinine Ratio 28.9 LAB CHEMISTRY METHOD 05/12/2024 1:22 PM [facility] Calcium 8.6 8.5 - 10.5 mg/dL LAB CHEMISTRY METHOD 05/12/2024 1:22 PM [facility] Blood Venous blood specimen / Unknown 05/12/2024 5:48 AM EST 05/12/2024 11:28 AM EST Torrey Kwok MD LAB BLOOD ORDERABLES Final Resul t [facility] [address] [place] [address], [place] [phone] * (ABNORMAL) Complete blood count (05/12/2024 5:48 AM EST) Pathologist [facility] WBC 7.5 4.8 - 10.8 K/mcL LAB HEMETOLOGY METHOD 05/12/2024 12:44 PM [facility] RBC 3.30(L) 3.80 - 4.80 M/mcL LAB HEMETOLOGY METHOD 05/12/2024 12:44 PM [facility] Hemoglobin 10.5(L) 11.5 - 16.0 g/dL LAB HEMETOLOGY METHOD 05/12/2024 12:44 PM [facility] Hematocrit 33.5(L) 35.0 - 47.0 % LAB HEMETOLOGY METHOD 05/12/2024 12:44 PM [facility] MCV 100.9(H) 79.0 - 98.0 FL LAB HEMETOLOGY METHOD 05/12/2024 12:44 PM [facility] MCH 31.6 27.0 - 32.0 pcg LAB HEMETOLOGY METHOD 05/12/2024 12:44 PM [facility] MCHC 31.3(L) 32.0 - 37.0 g/dL LAB HEMETOLOGY METHOD 05/12/2024 12:44 PM [facility] RDW 20.0(H) 11.0 - 15.0 % LAB HEMETOLOGY METHOD 05/12/2024 12:44 PM [facility] Platelets 386 130 - 400 K/mcL LAB HEMETOLOGY METHOD 05/12/2024 12:44 PM EST [facility] MPV 10.3 7.0 - 11.0 FL LAB HEMETOLOGY METHOD 05/12/2024 12:44 PM EST [facility] NRBC 0.0 <1.0 % LAB HEMETOLOGY METHOD 05/12/2024 12:44 PM EST [facility] NRBC Absolute 0.00 <0.10 K/mcL LAB HEMETOLOGY METHOD 05/12/2024 12:44 PM EST [facility] Blood Venous blood specimen / Unknown 05/12/2024 5:48 AM EST 05/12/2024 11:25 AM EST Torrey Kwok MD LAB BLOOD ORDERABLES Final Resul t [facility] [address] [place] [address], documented in this encounter Visit Diagnoses Diagnosis 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 difficile Rule-Out 03/12/2025 03/11/20252024 11:34 AM EST documented as of this encounter Care Teams Horse Trader Relationship Specialty Start Date End Date Torrey Kwok MD [address] [place] [address] [address] [place] [address] PCP - General Geriatric Medicine 04/25/24 documented as of this encounter
--- OUTSIDE RECORDS SUMMARY | 2025-04-03 22:08 | XMS_ITS | Encounter Summary ---
Author Organization [facility] Address [address] [place] [phone] Care Team Providers Care Ratoprinter Name Role Phone Torrey Kwok MD Primary Care Provider [phone] Encounter Details Date Type Department Care Team (Late st Contact Info) Description 2024 Lab Requisition [facility] - Main Lab 299 [facility] [place] [address] Torrey Kwok MD [address] [place], [place] [id number] Type 2 diabetes mellitus with diabetic chronic [...] documented as of this encounter Care Teams Ratoprinter Relationship Specialty Start Date End Date Torrey Kwok MD [address] [place] [address] [address] [place] [address] PCP - General Geriatric Medicine 04/25/24 documented as of this encounter
--- OUTSIDE RECORDS SUMMARY | 2025-04-03 22:08 | XMS_ITS | Encounter Summary ---
Author Organization [facility] Address [id number] [place] [id number] Care Team Providers Care Powder Worker Name Role Phone Torrey Kwok MD Primary Care Provider [phone] Encounter Details Date Type Department Care Team (Late st Contact Info) Description 07/11/2024 Lab Requisition [facility] - Main Lab [address] [facility] [place] [address] Torrey Kwok MD [address] [place], [place] [id number] Chronic kidney disease, stage 3 unspecified (CMS/HCC [...] LAB CHEMISTRY METHOD 07/11/2024 12:06 PM EDT [facility] Potassium 4.3 3.5 - 5.5 mmol/L LAB CHEMISTRY METHOD 07/11/2024 12:06 PM EDT [facility] Chloride 101 96 - 110 mmol/L LAB CHEMISTRY METHOD 07/11/2024 12:06 PM [facility] CO2 26 21 - 32 mmol/L LAB CHEMISTRY METHOD 07/11/2024 12:06 PM [facility] Anion Gap 8 3 - 11 LAB CHEMISTRY METHOD 07/11/2024 12:06 PM [facility] Glucose 216(H) 70 - 100 mg/dL LAB CHEMISTRY METHOD 07/11/2024 12:06 PM [facility] BUN 45(H) 5 - 25 mg/dL LAB CHEMISTRY METHOD 07/11/2024 12:06 PM [facility] Creatinine 1.38(H) 0.50 - 1.10 mg/dL LAB CHEMISTRY METHOD 07/11/2024 12:06 PM [facility] eGFR 37(L) >=60 mL/min/1. 73m2 LAB CHEMISTRY METHOD 07/11/2024 12:06 PM [facility] Comment:Calculation based on the Chronic Kidney Disease Epidemiology Collaboration (CKD-EPI) equation refit without adjustment for race. BUN/Creatinine Ratio 32.6 LAB CHEMISTRY METHOD 07/11/2024 12:06 PM [facility] Calcium 8.8 8.5 - 10.5 mg/dL LAB CHEMISTRY METHOD 07/11/2024 12:06 PM [facility] Blood Venous blood specimen / Unknown Venipuncture / Unknown 07/11/2024 6:58 AM EDT 07/11/2024 10:53 AM EDT us Torrye Kwok MD LAB BLOOD ORDERABLES Final Resul t [facility] [address] [place] [address], [place] [phone] documented in this encounter Visit Diagnoses Diagnosis Chronic kidney disease, stage 3 unspecified (CMS/HCC V24, CMS/HCC V28) documented in this encounter Additional Health Concerns Infection Onset Date Last Indicated Resolved Time Respiratory Rule-Out 07/12/2024 07/11/2024 025 11:25 AM EDT C. difficile Rule-Out 03/12/2025 03/11/20252024 11:34 AM EST documented as of this encounter Care Teams Powder Worker Relationship Specialty Start Date End Date Torrey Kwok MD [address] [place] [address] [address] [place] [address] PCP - General Geriatric Medicine 04/25/24 documented as of this encounter
[2025-04-03] MEDS: OLANZapine 10 MG VIAL IM (23:23)
[2025-04-03 23:30] LABS: Hematocrit 35.7 % (37.0-47.0); Hemoglobin 11.6 g/dl (12.0-16.0); Imm Gran Abs Auto 0.03 X10*3/uL (0.00-0.03); Imm Gran Pct Auto 0.4 % (0.0-0.4); Lymphocytes Absolute Auto 0.8 X10*3/uL (1.2-4.9); MANUAL DIFF FLAG NO; Mean Corpuscular HGB Conc 32.5 g/dl (31.0-35.0); Mean Corpuscular Hemoglobin 31.2 pg (27.0-33.0); Mean Corpuscular Volume 96.0 fL (80.0-98.0); NRBC Abs Auto 0.000 X10*3/uL (0.0-0.012); NRBC Pct Auto 0.0 /100WBC (0.0-0.2); Platelet Count 302 X10*3/uL (160-400); Red Blood Count 3.72 X10*6/uL (4.20-5.50); White Blood Count 7.3 X10*3/uL (4.8-10.8)
[2025-04-03 23:37] LABS: INTERNATIONAL NORM RATIO 1.2 (0.9-1.1); Prothrombin Time 14.4 SEC (11.2-13.5)
[2025-04-03 23:47] LABS: Alanine Aminotransferase 45 U/L (0-31); Albumin Level 4.0 g/dL (3.5-5.0); Alkaline Phosphatase 144 U/L (39-117); Anion Gap 13 (12-20); Aspartate Amino Transferase 47 U/L (5-31); Blood Urea Nitrogen 30 mg/dL (9-16); Calcium 9.4 mg/dL (8.4-10.2); Carbon Dioxide 29 mmol/L (22-29); Chloride 103 mmol/L (96-108); Creatinine Clr Calc Pharmacy 31.8; Estimated Glomerular Filt Rate 42; Magnesium 2.5 mg/dL (1.6-2.6); Potassium 4.0 mmol/L (3.3-5.1); Sodium 141 mmol/L (135-145); Total Protein 6.9 g/dL (6.5-8.0)
[2025-04-04] VITALS (9 sets, daily range): BP systolic 107–148; BP diastolic 45–77; PULSE 71–78; RESP 13–18; TEMP 35–36.5; O2SAT 95–96
[2025-04-04 00:06] LABS: Resp Syncy Virus RNA Qual PCR NEGATIVE (Negative); SARS COV2 PCR INHOUSE NEGATIVE (Negative)
[2025-04-04 00:47] LABS: Free T4 (Free Thyroxine) 1.23 ng/dL (0.71-1.85)
--- NOTE | 2025-04-04 02:58 | ECG_ITS ---
Test Reason : CP Blood Pressure : */* mmHG Vent. Rate : 80 BPM Atrial Rate : * BPM P-R Int : * ms QRS Dur : 112 ms QT Int : 456 ms P-R-T Axes : * -60 32 degrees QTcB Int : 525 ms Atrial fibrillation Left axis deviation Incomplete left bundle branch block Minimal voltage criteria for LVH, may be normal variant ( [place] product ) Nonspecific ST abnormality Prolonged QT Abnormal ECG When compared with ECG of 24-Feb-2025 11:09, No significant change was found Referred By: Danelle Chavez Electronically Signed By: MATTEO CARNYE MD
[2025-04-04] MEDS: OLANZapine 10 MG VIAL IM (03:07)
[2025-04-04 03:37] LABS: Appearance Urine Clear; Glucose Urine UA 100 mg/dL (Negative); PH 7.0 (5.0-9.0); Specific Gravity - Urine 1.015 (1.005-1.025); UMIC TRIGGER UACC YES
--- NOTE | 2025-04-04 03:37 | PC.NURSE ---
pts temp was 95.5. made aware. pt placed on bear hugger to increase temp. rectal temp in place.
[2025-04-04 03:56] LABS: UACC Culture Trigger YES
== END 2025-04-04 09:15 | disposition skilled nursing facility (03) ==
PROVIDERS: Emergency Provider Emergency Medicine
DX: F03.90 Unspecified dementia, unspecified severity, without behavioral disturbance, psychotic disturbance, mood disturbance, and anxiety (principal); F05 Delirium due to known physiological condition; E86.0 Dehydration; R41.82 Altered mental status, unspecified; Z03.818 Encounter for observation for suspected exposure to other biological agents ruled out; R07.9 Chest pain, unspecified; I48.91 Unspecified atrial fibrillation; I44.7 Left bundle-branch block, unspecified; E11.9 Type 2 diabetes mellitus without complications; I10 Essential (primary) hypertension; Z79.01 Long term (current) use of anticoagulants; Z79.899 Other long term (current) drug therapy; Z79.4 Long term (current) use of insulin
CPT/HCPCS: 36415; 70450; 80053; 81001; 83605; 83735; 84439; 84443; 85025; 85610; 87040; 87086; 87637; 93005; 96372; 99285; J2359

== ENCOUNTER → 2025-04-03 22:40 | Outpatient (BNV) | payer MEDICARE, SELFPAY | PROVIDERS: Emergency Provider Emergency Medicine; Visit Provider Radiology Neuroradiology | DX: R41.82 Altered mental status, unspecified (principal) | CPT/HCPCS: 70450 ==

== ENCOUNTER → 2025-04-04 02:58 | Outpatient (BNV) | payer MEDICARE, SELFPAY | PROVIDERS: Emergency Provider Emergency Medicine; Visit Provider Internal Medicine Cardiovascular Disease | DX: I48.91 Unspecified atrial fibrillation (principal); I45.10 Unspecified right bundle-branch block | CPT/HCPCS: 93010 ==